=== PATIENT | male | born 1960 | race Caucasian/White ===

== ENCOUNTER 2015-06-18 17:11 | Inpatient (IN) | payer MEDICARE, OTHER ==
[~2015-06-18] VITALS: Ht 177.8 cm; Wt 40.0 kg
[2015-06-18] VITALS (7 sets, daily range): BP systolic 104–152; BP diastolic 61–91; PULSE 84–107; RESP 22–38; TEMP 100.9; O2SAT 98–100
[~2015-06-18 17:11] MED LIST: ACET INH; ALBU1.25 NEB; AMOX875 PO; CARB25TA GT; CLON1TAB GT; DIPH2%T G-TUBE; FAMO1TAB36 G-TUBE; FENT25DI T-DERMAL; FLUC100T41 PO; HEPA10KP SQ; HUMSS SQ; LACT PO; MAPA325T6 G-TUBE; MIDO5 G-TUBE; NEUR600T G-TUBE; OLAN2.5T GT; PAXI30TA7 G-TUBE; POTA-267 PO; QUET25 G-TUBE; RANI150T G-TUBE
--- NOTE | 2015-06-18 17:34 | PD ---
HPI Chief Complaint: Respiratory Distress Time Seen by Provider: 17:18 Travel History International Travel<30 days: No (unknown) Contact w/Intl Traveler<30days: No (unkonwn) History of Present Illness HPI This is a 54-year-old male with a history of Parkinson's disease and dementia who is in a prison and nonverbal at baseline, with a tracheostomy and a PEG tube, presenting today with fevers and increased work of breathing. Patient is unable to provide any history. The prison noted that he had some purulent sputum at his tracheostomy site. PFSH Past Medical History Arthritis: Yes Anxiety: Yes Depression: Yes High Cholesterol: Yes Coronary Artery Disease: Yes Dementia: Yes Diabetes: Yes Diminished Hearing: Yes Gastrointestinal Disorders: Yes (HEMORROIDS) GERD: Yes Genitourinary: Yes (UTI) Hypertension: Yes Neurologic: Yes (ENCEPHALOPATHY) Parkinson's Disease: Yes Respiratory: Yes Past Surgical History Oral Surgery: Yes ("THROAT SURGERY" SON IS UNAWARE OF ETILOGY) Other Surgery: Yes (ENT) Social History Alcohol Use: No Tobacco Use: No Substance Use: No Allergies-Medications (Allergen,Severity, Reaction): Coded Allergies: *MDRO Multi-Drug Resistant Organism (Verified Adverse Reaction, Unknown, ) ESBL E. coli (urine) - 02/19/2015 MRSA PCR positive - 03/20/2015 Reported Meds & Prescriptions Reported Meds & Active Scripts Active Fentanyl 25 Mcg/Hr patch (Fentanyl) 25 Mcg/Hr Dis 1 Patch T-DERMAL Q3D 10 Days Clonazepam 1 Mg Tab 1 Mg GT BID 10 Days Diflucan 100 mg (Fluconazole) 100 Mg Tab 100 Mg PO DAILY Amoxicillin 875 Mg Tab 875 Mg PO Q12HR 10 Days Heparin Sq 10,000 Units/Ml (Heparin Sodium (Porcine)) 10,000 Units/Ml Inj 5, 000 Units SQ Q8HR 30 Days Lactinex (Lactobacillus Acidophilus) 1 Tab Tab 1 Tab PO TID 10 Days Reported Humalog Insulin Supplemental Scale (Insulin Human Lispro) 100 Units/Ml Inj 2- 12 Units SQ TIDACHS Medium Dose Lispro Insulin Sliding Scale = Max dose at bedtime:( )units; Max dose at 3am:( ); blood sugars less than 70 take zero insulin units; blood sugars 151-200 take 3 unit; blood sugars 20-250 take 5 units; blood sugars 251-300 take 10 units; blood sugars 301-350 take 12 units; blood sugars 351-400 take 12 units; blood sugars greater than 401 take 15 units & call MD Stoll 400 Gm (Silver Sulfadiazine) 400 Applic/400 Gm Cr 1 Applic TOP DAILY APPLY TO RIGHT BUTTOCKS Lortab 5 mg/325 mg (Hydrocodone/Acetaminophen 5 mg/325 mg) 1 Tab 1 Tab G-TUBE Q6HR PRN Potassium Chloride CR 20 meq 20 Meq Tab 40 Meq G-TUBE DAILY Paroxetine Hcl 20 Mg Tab 20 Mg G-TUBE DAILY Gabapentin 300 Mg Cap 300 Mg G-TUBE BID Ranitidine 150 mg (Ranitidine HCl) 150 Mg Tab 150 Tab G-TUBE BID Diphenhydramine 25 mg (Diphenhydramine HCl) 25 Mg Tab 25 Mg G-TUBE Q6HR Quetiapine Fumarate 25 Mg Tab 12.5 Mg G-TUBE DAILY Proamatine 5 Mg Tab (Midodrine) 5 Mg Tab 2.5 Mg G-TUBE BID Famotidine 20 Mg Tab 20 Mg G-TUBE BID Sinemet 25/100 (Carbidopa/Levodopa) 25 Mg/100 Mg Tab 1 Tab GT Q8HR Acetylcysteine 20 % Helga 4 Ml INH BID Mapap (Acetaminophen) 325 Mg Tab 650 Mg G-TUBE Q4H PRN Olanzapine 2.5 Mg Tab 2.5 Mg GT HS Accuneb 1.25 mg/3 ml (Albuterol Sulfate) 1.25 Mg/3 Ml Neb 1.25 Mg NEB Q6HR NEB PRN Review of Systems ROS Limitations: Clinical Condition Physical Exam Narrative GENERAL: Chronically ill-appearing, frail SKIN: No obvious cellulitis or wounds HEAD: Atraumatic. Normocephalic. EYES: Pupils equal and round. No injection or drainage. ENT: Moist mucous membranes NECK: Trachea midline. CARDIOVASCULAR: Regular rate and rhythm. No murmur appreciated. RESPIRATORY: Clear to auscultation. Breath sounds equal bilaterally. GASTROINTESTINAL: Abdomen soft, non-tender, nondistended. NEUROLOGICAL: Does not answer questions or respond, does not follow commands Data Data Last Documented VS Vital Signs Date Time Temp Pulse Resp B/P Pulse Ox O2 Delivery O2 Flow Rate FiO2 06/18/15 17:15 100.9 98 38 104/61 99 06/18/15 17:15 Trach Collar Orders Complete Blood Count With Diff (06/18/15 17:31) Comprehensive Metabolic Panel (06/18/15 17:31) Prothrombin Time / Inr (Pt) (06/18/15 17:31) Act Partial Throm Time (Ptt) (06/18/15 17:31) Lactic Acid Sepsis Protocol (06/18/15 17:31) Urinalysis - C+S If Indicated (06/18/15 17:31) Blood Culture (06/18/15 17:31) Sputum Culture And Gram Stain (06/18/15 17:31) Chest, Single Ap (06/18/15 17:31) Arterial Blood Gas (Abg) (06/18/15 17:31) Blood Glucose (06/18/15 17:31) Ecg Monitoring (06/18/15 17:31) Iv Access Insert/Monitor (06/18/15 17:31) Oximetry (06/18/15 17:31) Oxygen Administration (06/18/15 17:31) Acetaminophen Supp (Tylenol Supp) (06/18/15 17:45) Vancomycin Inj (Vancomycin Inj) (06/18/15 17:45) Piperacil-Tazo 4.5 Gm Premix (Zosyn 4.5 (06/18/15 17:45) Sodium Chlor 0.9% 1000 Ml Inj (Ns 1000 M (06/18/15 17:31) Resp Bipap / Cpap Non Invas Vt (06/18/15 ) Urine Culture (06/18/15 17:32) Ct Brain W/O Iv Contrast(Rout) (06/18/15 19:03) Ct Abd/Pel W Iv Contrast(Rout) (06/18/15 19:03) Labs Laboratory Tests Test 06/18/15 06/18/15 06/18/15 06/18/15 17:30 17:32 17:34 18:00 White Blood Count 16.4 TH/MM3 Red Blood Count 3.81 MIL/MM3 Hemoglobin 11.3 GM/DL Hematocrit 34.3 % Mean Corpuscular Volume 90.1 FL Mean Corpuscular Hemoglobin 29.7 PG Mean Corpuscular Hemoglobin 32.9 % Concent Red Cell Distribution Width 12.9 % Platelet Count 176 TH/MM3 Mean Platelet Volume 11.0 FL Neutrophils (%) (Auto) 89.9 % Lymphocytes (%) (Auto) 4.5 % Monocytes (%) (Auto) 5.2 % Eosinophils (%) (Auto) 0.1 % Basophils (%) (Auto) 0.3 % Neutrophils # (Auto) 14.7 TH/MM3 Lymphocytes # (Auto) 0.7 TH/MM3 Monocytes # (Auto) 0.8 TH/MM3 Eosinophils # (Auto) 0.0 TH/MM3 Basophils # (Auto) 0.1 TH/MM3 CBC Comment DIFF FINAL Differential Comment Prothrombin Time 11.4 SEC Prothromb Time International 1.1 RATIO Ratio Activated Partial 29.4 SEC Thromboplast Time Sodium Level 141 MEQ/L Potassium Level 4.5 MEQ/L Chloride Level 105 MEQ/L Carbon Dioxide Level 27.4 MEQ/L Anion Gap 9 MEQ/L Blood Urea Nitrogen 21 MG/DL Creatinine 0.85 MG/DL Estimat Glomerular Filtration 95 ML/MIN Rate Random Glucose 116 MG/DL Calcium Level 9.6 MG/DL Total Bilirubin 0.6 MG/DL Aspartate Amino Transf 23 U/L (AST/SGOT) Alanine Aminotransferase 38 U/L (ALT/SGPT) Alkaline Phosphatase 59 U/L Total Protein 7.5 GM/DL Albumin 3.2 GM/DL Urine Color YELLOW Urine Turbidity HAZY Urine pH 7.5 Urine Specific [place] 1.026 Urine Protein 100 mg/dL Urine Glucose (UA) NEG mg/dL Urine Ketones NEG mg/dL Urine Occult Blood LARGE Urine Nitrite NEG Urine Bilirubin NEG Urine Urobilinogen 2.0 MG/DL Urine Leukocyte Esterase LARGE Urine RBC /hpf Urine WBC /hpf Urine Bacteria FEW /hpf Urine Mucus MANY /lpf Urine Yeast with Hyphae FEW Urine Yeast (Budding) FEW Microscopic Urinalysis Comment CATH-CULTURE IND Lactic Acid Level 4.0 mmol/L Blood Gas Puncture Site RT RADIAL Blood Gas Patient Temperature 98.6 Blood Gas HCO3 27 mmol/L Blood Gas Base Excess 4.2 mmol/L Blood Gas Oxygen Saturation 95 % Arterial Blood pH 7.53 Arterial Blood Partial 33 mmHg Pressure CO2 Arterial Blood Partial 108 mmHG Pressure O2 Arterial Blood Oxygen Content 28.8 Vol % Arterial Blood 1.2 % Carboxyhemoglobin Arterial Blood Methemoglobin 1.7 % Blood Gas Hemoglobin 21.6 G/DL Oxygen Delivery Device TRACH MASK Blood Gas Inspired Oxygen 40 % MDM Medical Decision Making Medical Screen Exam Complete: Yes Emergency Medical Condition: Yes Interpretation(s) Fever, tachypnea Leukocytosis with left shift Electrolytes within normal limits Lactate 4 Urinalysis: Urinary tract infection ABG: Metabolic and respiratory alkalosis Differential Diagnosis Pneumonia, urinary tract infection, tracheitis, sepsis, septic shock Narrative Course This is a 54-year-old male who is chronically debilitated in a prison with a tracheostomy, who presents with severe sepsis. He was given 2 L of IV fluid and broad-spectrum antibiotics. Cultures were obtained. Urinary tract infection appears to be the source. Putnam catheter was changed. Initially patient was markedly tachypneic with increased work of breathing and accessory muscle use, so he was placed on CPAP. He was not tolerating CPAP well so changed to assist control and appeared more comfortable. ABG demonstrated respiratory alkalosis. The patient will be admitted to the intensive care unit for further management. Critical Care Narrative Aggregate critical care time was 45 minutes. Time to perform other separately billable procedures was not included in the critical care time. My time did not include minutes spent treating any other patients simultaneously or on activities that did not directly contribute to the patient's treatment. The services I provided to this patient were to treat and/or prevent clinically significant deterioration that could result in: Disability, I provided critical care services requiring my management, as noted below: Chart data review, documentation time, medication orders and management, vital sign assessments/reviewing monitor data, ordering and reviewing lab tests, ordering and interpreting/reviewing x-rays and diagnostic studies, care of the patient and discussion of the patient with the admitting physicians. Admitting Information Admitting Physician Requests: Admit Diagnosis: severe sepsis Camille Patel MD June 18, 2015 17:34
[2015-06-18] MEDS ORDERED: PIPERACIL-TAZO 4.5 GM PREMIX 100 ML IV ONE (17:45)
[2015-06-18] MEDS ORDERED: VANCOMYCIN INJ 1 MG in SODIUM CHLOR 0.9% 250 ML INJ 250 ML IV ONE (17:45)
[2015-06-18] MEDS ORDERED: ACETAMINOPHEN 650 MG SUPP RECTAL ONE (17:45)
[2015-06-18] MEDS: SODIUM CHLOR 0.9% 1000 ML INJ 1,000 ML, SODIUM CHLOR 0.9% 1000 ML INJ 1,000 ML IV SCH ×2 (17:54→20:29)
[2015-06-18 18:01] LABS: AUTOMATED NEUTROPHIL # 14.7 TH/MM3 (1.8-7.7); BASOPHIL # 0.1 TH/MM3 (0-0.2); BASOPHIL % 0.3 % (0.0-2.0); EOSINOPHIL % 0.1 % (0.0-4.0); HEMATOCRIT 34.3 % (39.0-51.0); HEMO FLAGS DIFF FINAL; LYMPH % 4.5 % (9.0-44.0); LYMPHOCYTE # 0.7 TH/MM3 (1.0-4.8); MEAN CELL VOLUME 90.1 FL (80.0-100.0); MEAN CORPUSCULAR HEMOGLOBIN 29.7 PG (27.0-34.0); MEAN CORPUSCULAR HGB CONC 32.9 % (32.0-36.0); MONO % 5.2 % (0.0-8.0); NEUT % 89.9 % (16.0-70.0); PLATELET COUNT 176 TH/MM3 (150-450); RED BLOOD COUNT 3.81 MIL/MM3 (4.50-5.90); RED CELL DISTRIBUTION WIDTH 12.9 % (11.6-17.2); WHITE BLOOD COUNT 16.4 TH/MM3 (4.0-11.0)
[2015-06-18] MEDS ORDERED: POTA20IN3 G-TUBE (18:03)
[2015-06-18] MEDS ORDERED: GABA300C3 G-TUBE (18:03)
[2015-06-18] MEDS ORDERED: SILV400T TOP (18:03)
[2015-06-18] MEDS ORDERED: PARO20TA G-TUBE (18:03)
[2015-06-18] MEDS ORDERED: HYDR-3533 G-TUBE (18:03)
[2015-06-18] MEDS ORDERED: HUMALOGP SQ (18:09)
[2015-06-18 18:10] LABS: APTT (PATIENT) 29.4 SEC (22.6-28.8); INTERNATIONAL NORMALIZED RATIO 1.1 RATIO; PROTHROMBIN TIME - PATIENT 11.4 SEC (9.8-11.4)
[2015-06-18 18:20] LABS: BACTERIA, URINE FEW /hpf; BLOOD, URINE LARGE (NEG); GLUCOSE,URINE NEG (NEG); KETONE, URINE NEG (NEG); MUCUS URINE MANY /lpf (OCC); NITRITE,URINE NEG (NEG); PH, URINE 7.5 (5.0-8.5); URINE COLOR YELLOW (YELLW/STRAW)
[2015-06-18 18:22] LABS: COMMENT (UR) CATH-CULTURE IND; CULTURE IF INDICATED CATH CULTURE IND
[2015-06-18 18:32] LABS: ALT (GPT) 38 U/L (12-78); ANION GAP 9 MEQ/L (5-15); AST (GOT) 23 U/L (15-37); BICARBONATE 27.4 MEQ/L (21.0-32.0); BLOOD UREA NITROGEN 21 MG/DL (7-18); CHLORIDE 105 MEQ/L (98-107); GLOMERULAR FILTRATION RATE 95 ML/MIN (>89); POTASSIUM 4.5 MEQ/L (3.5-5.1); SODIUM (NA) 141 MEQ/L (136-145)
[2015-06-18 18:34] LABS: ALKALINE PHOSPHATASE 59 U/L (45-117); TOTAL BILIRUBIN ADULT 0.6 MG/DL (0.2-1.0)
--- NOTE | 2015-06-18 18:36 | RADRPT ---
EXAM DATE/TIME: 06/18/2015 18:02 [facility] COMPARISON: CHEST SINGLE AP, June 12, 2015, 8:22. INDICATIONS : Cough. MEDICAL HISTORY : Unobtainable. SURGICAL HISTORY : Unobtainable. ENCOUNTER: Initial ACUITY: 1 day PAIN SCORE: Non-responsive. LOCATION: chest FINDINGS: Single AP view chest. Tracheostomy tube remains in place. The lungs are clear. Cardiomediastinal silh ouette within normal limits. No evidence of pleural effusion or pneumothorax. Skin folds noted at the right upper lung zone region. CONCLUSION: No acute cardiopulmonary disease identified. Kush Briscoe MD on June 18, 2015 at 18:31 Board Certified Radiologist. This report was verified electronically.
[2015-06-18 18:42] LABS: BLOOD GAS BASE EXCESS 4.2 mmol/L (-2-2); BLOOD GAS CARBOXYHEMOGLOBIN 1.2 % (0-4); BLOOD GAS HCO3 27 mmol/L (22-26); BLOOD GAS METHEMOGLOBIN 1.7 % (0-2); BLOOD GAS O2 HGB SATURATION 95 % (90-100); BLOOD GAS OXYGEN CONTENT 28.8 Vol % (12.0-20.0); BLOOD GAS PCO2 33 mmHg (38-42); BLOOD GAS PO2 108 mmHG (61-120); BLOOD GAS TOTAL HGB 21.6 G/DL (12.0-16.0); TEMP CORR TO 98.6
[2015-06-18 18:43] LABS: CRITICAL VALUE YES; DRAW SITE RT RADIAL; FIO2 40 %; NUMBER OF ARTERIAL PUNCTURES 2; OXYGEN DEVICE TRACH MASK; STAT YES; ULNAR PULSE PRESENT
[2015-06-18] MEDS ORDERED: IOHEXOL 350 MG/ML 10 ML VIAL (for RAD DIAG) IV ONE (19:34)
[2015-06-18 19:45] LABS: LACTIC ACID GHOST NOT REPORTABLE
--- NOTE | 2015-06-18 20:27 | RADRPT ---
EXAM DATE/TIME: 06/18/2015 19:31 [facility] COMPARISON: CT BRAIN W/O CONTRAST, June 12, 2015, 8:49. INDICATIONS : Altered mental status with recent respiratory infection. RADIATION DOSE: 57.81 CTDIvol (mGy) MEDICAL HISTORY : Dementia. Parkinsons. Hypertension. SURGICAL HISTORY : None. ENCOUNTER: Initial ACUITY: 1 day PAIN SCALE: Non-responsive LOCATION: cranial TECHNIQUE: Multiple contiguous axial images were obtained of the head. Using automated exposure control and adj ustment of the mA and/or kV according to patient size, radiation dose was kept as low as reasonably a chievable to obtain optimal diagnostic quality images. FINDINGS: CEREBRUM: Diffuse prominence of ventricles, sulci, and cisterns unchanged. No evidence of midline shift, mass lesion, hemorrhage or acute infarction. No extra-axial fluid collections are seen. POSTERIOR FOSSA: The cerebellum and brainstem are intact. The 4th ventricle is midline. The cerebellopontine angle i s unremarkable. EXTRACRANIAL: The visualized portion of the orbits is intact. Diffuse opacification of right mastoid air cells unch anged. SKULL: The calvaria is intact. No evidence of skull fracture. CONCLUSION: Diffuse atrophy unchanged. No acute intracranial findings. Kush Briscoe MD on June 18, 2015 at 20:23 Board Certified Radiologist. This report was verified electronically.
--- NOTE | 2015-06-18 20:36 | RADRPT ---
EXAM DATE/TIME: 06/18/2015 19:36 [facility] COMPARISON: CT ABDOMEN & PELVIS W CONTRAST, March 20, 2015, 2:48. INDICATIONS : Fever; evaluate for sepsis. IV CONTRAST: 86 cc Omnipaque 350 (iohexol) IV ORAL CONTRAST: No oral contrast ingested. RADIATION DOSE: 6.11 CTDIvol (mGy) MEDICAL HISTORY : Hypertension. Gastroesophageal reflux disease. Diabetes mellitus type 2. SURGICAL HISTORY : None. ENCOUNTER: Initial ACUITY: 1 day PAIN SCALE: Non-responsive LOCATION: Abdomen/pelvis TECHNIQUE: Volumetric scanning of the abdomen and pelvis was performed. Using automated exposure control and ad justment of the mA and/or kV according to patient size, radiation dose was kept as low as reasonably achievable to obtain optimal diagnostic quality images. FINDINGS: LOWER LUNGS: Moderate severity groundglass opacity at the right middle lobe. Lower lobe bronchiectasis and mild tr ee in bud opacity again seen bilaterally. Findings are very similar to the prior study of 03/20/2015 LIVER: Homogeneous density without lesion. There is no dilation of the biliary tree. No calcified gallston es. SPLEEN: Normal size without lesion. PANCREAS: Within normal limits. KIDNEYS: 4 cm left renal cyst again seen. A 3 mm nonobstructing calculus is now seen in the upper pole on the left. No evidence of hydronephrosis. ADRENAL GLANDS: Within normal limits. VASCULAR: There is no aortic aneurysm. BOWEL/MESENTERY: Rectum is moderately distended. Gastrostomy tube is in place. No evidence of small bowel dilatation. No free air or free fluid. Adnexa within normal limits. ABDOMINAL WALL: Within normal limits. RETROPERITONEUM: No evidence of abscess or hematoma. No enlarged lymph nodes. BLADDER: Putnam catheter in place. Bladder collapsed. Nonspecific wall thickening. REPRODUCTIVE: Within normal limits. INGUINAL: There is no lymphadenopathy or hernia. MUSCULOSKELETAL: Within normal limits for patient age. CONCLUSION: 1. Chronic nonspecific urinary bladder wall thickening. Bladder collapsed with Putnam catheter in plac e. 2. Chronic bilateral mid to lower lung zone groundglass opacity. 3. Nonobstructing left renal calculus. 4. Distended rectum. Kush Briscoe MD on June 18, 2015 at 20:26 Board Certified Radiologist. This report was verified electronically.
[2015-06-18] MEDS ORDERED: CHLORHEXIDINE GLUCONATE 2 % 1 PACK (2 CLOTHS) TOP PRN (21:30)
[2015-06-18] MEDS ORDERED: MISCELLANEOUS NURSING INFORMATION XX SCH (21:30)
[2015-06-18] MEDS ORDERED: POTASSIUM CL 40 MEQ/30 ML LIQ UDC PO/TUBE PRN ×2 (21:45)
[2015-06-18] MEDS ORDERED: MAGNESIUM SULFATE INJ 2 GM in SODIUM CHLORIDE 0.9% INJ 96 ML IV PRN (21:45)
[2015-06-18] MEDS ORDERED: MAGNESIUM OXIDE 400 MG TAB PO PRN (21:45)
[2015-06-18] MEDS ORDERED: POTASSIUM PHOSPHATE MONOBASIC 500 MG TAB PO PRN (21:45)
[2015-06-18] MEDS ORDERED: MISCELLANEOUS PHARMACY INFORMATION XX PRN (21:45)
[2015-06-18] MEDS ORDERED: POTASSIUM PHOSPHATE MONOBASIC 500 MG TAB PO/TUBE PRN (21:45)
[2015-06-18] MEDS ORDERED: SODIUM PHOSPHATE INJ 30 MMOL in SODIUM CHLOR 0.9% 250 ML INJ 240 ML IV PRN (21:45)
[2015-06-18] MEDS ORDERED: MAGNESIUM SULFATE INJ 4 GM in SODIUM CHLORIDE 0.9% INJ 92 ML IV PRN (21:45)
[2015-06-18] MEDS ORDERED: ASP: Documented ESBL, MDR A baumannii or P. aeruginosa XX PRN (21:45)
[2015-06-18] MEDS ORDERED: SODIUM CHLOR 0.9% 1000 ML INJ 1,000 ML IV ONE (21:45)
[2015-06-18] MEDS ORDERED: POTASSIUM PHOSPHATE INJ 30 MMOL in SODIUM CHLOR 0.9% 250 ML INJ 250 ML IV PRN (21:45)
[2015-06-18] MEDS ORDERED: Vancomycin Consult Pharmacy 1 EA XX SCH (21:45)
[2015-06-18] MEDS ORDERED: POTASSIUM CHLOR 40 MEQ PREMIX 100 ML IV PRN ×2 (21:45)
[2015-06-18] MEDS ORDERED: GLUCAGON 1 MG/ML VIAL OTHER PRN (21:45)
[2015-06-18] MEDS ORDERED: DEXTROSE 50% IN WATER 50 ML VIAL(D50) IV PUSH PRN (21:45)
[2015-06-18 22:37] LABS: HEMOGLOBIN A1b 0.8 %; HEMOGLOBIN Ao 85.8 %; HEMOGLOBIN F 0.9 %
[2015-06-18 22:40] LABS: HDL CHOLESTEROL 29.5 MG/DL (40.0-60.0)
[2015-06-18] MEDS: ENOXAPARIN SODIUM 30 MG/0.3 ML SYRINGE SQ SCH (22:47)
[2015-06-18] MEDS: SODIUM CHLOR 0.9% 1000 ML INJ 1,000 ML IV SCH (22:47)
[2015-06-18] MEDS: MEROPENEM INJ 500 MG in SODIUM CHLORIDE 0.9% INJ 100 ML IV SCH (22:47)
[2015-06-18] MEDS ORDERED: MICAFUNGIN INJ 150 MG in SODIUM CHLORIDE 0.9% INJ 100 ML IV SCH (23:00)
[2015-06-18 23:16] LABS: ALKALINE PHOSPHATASE 53 U/L (45-117); ALT (GPT) 32 U/L (12-78); ANION GAP 8 MEQ/L (5-15); AST (GOT) 20 U/L (15-37); BLOOD UREA NITROGEN 18 MG/DL (7-18); CHLORIDE 109 MEQ/L (98-107); FREE T3 1.36 PG/ML (2.18-3.98); FREE T4 1.35 NG/DL (0.76-1.46); GLOMERULAR FILTRATION RATE 108 ML/MIN (>89); MAGNESIUM 1.7 MG/DL (1.5-2.5); POTASSIUM 4.3 MEQ/L (3.5-5.1); SODIUM (NA) 141 MEQ/L (136-145); TOTAL BILIRUBIN ADULT 0.7 MG/DL (0.2-1.0)
[2015-06-18 23:17] LABS: CREATINE KINASE 77 U/L (39-308)
[2015-06-19] VITALS (23 sets, daily range): BP systolic 103–146; BP diastolic 72–90; PULSE 62–84; RESP 19–31; TEMP 98.1–99.5; O2SAT 99–100
[2015-06-19] MEDS: RESP: ALBUTEROL 2.5 MG/IPRATROPIUM 0.5 MG NEB (SCH) INH ×7 (00:12→23:31)
--- NOTE | 2015-06-19 03:07 | HHI.HP ---
HPI Service Critical Care Medicine Primary Care Physician Unknown Admission Diagnosis severe sepsis Diagnosis: Chief Complaint: sepsis from UTI, resp failure , altered mental status Travel History International Travel<30 Days: No (unknown) Contact w/Intl Traveler <30 Da: No (unkonwn) Traveled to Known Affected Are: No History of Present Illness pt was seen and examined in ED and in ICU HPI Pt is a 54 yr man with multiple medial problems including Parkinson's disease, advanced dementia, hyponatremia, anxiety, pneumonia, GERD, cognitive disorder, and multidrug resistant UTI- ESBL02/19/15 , who resides in a [place] [facility]. Pt by report was found by staff in [place] [facility] to be less alert and having respiratory difficultly and fevers. Pt was brought to ED adn placed on ventilator. His workup was inclusive of labs, chest xray and ct head and abd/pelvis. WBC 16.4, +UTI, lactic acid 4, troponin ,0.02, BUN/ cre 18/ 0.76. CT head 06/18/15: diffuse atrophy unchanged. No acute intracranial findings ct abd/ pelvis with IV contrast: 06/18/15 Conclusion: 1. Chronic nonspecific urinary bladder wall thickening. Bladder collapsed with Putnam catheter in place. 2.Chronic bilateral mid to lower zone groundglass opacity. 3. Nonobstructing left renal calculus. 4. Distended rectum Pt admitted and fluid and abx ordered Review of Systems ROS Limitations: Clinical Condition, Intubated Past Family Social History Allergies: Coded Allergies: *MDRO Multi-Drug Resistant Organism (Verified Adverse Reaction, Unknown, ) ESBL E. coli (urine) - 02/19/2015 MRSA PCR positive - 03/20/2015 Past Medical History Parkinson's disease, advanced dementia, hyponatremia, anxiety, pneumonia, GERD, cognitive disorder, multidrug resistant UTI- ESBL02/19/15 , MRSA + 03/20/15 Past Surgical History PEG, trach, left hip fx Physical Exam Vital Signs Vital Signs Date Time Temp Pulse Resp B/P Pulse Ox O2 Delivery O2 Flow Rate FiO2 06/19/15 02:00 82 06/19/15 01:20 100 35 06/19/15 01:15 99.5 78 28 146/90 99 06/19/15 01:00 100 100 06/19/15 00:27 99.0 77 22 134/72 100 Room Air 06/19/15 00:15 100 35 06/18/15 22:48 84 22 129/78 100 Trach Collar 06/18/15 21:38 100 40 06/18/15 20:48 107 28 152/91 100 Trach Collar 06/18/15 19:30 100 100 06/18/15 19:00 88 29 107/73 99 Ventilator 06/18/15 18:00 98 36 123/67 98 Ventilator 06/18/15 18:00 99 40 06/18/15 17:15 99 Trach Collar 5 06/18/15 17:15 98 100 Trach Collar 06/18/15 17:15 100.9 98 38 104/61 99 06/18/15 17:15 17 Trach Collar Physical Exam Neuro : pt more alert in ICU pupils 3mm reactive b/l sceral clear no icterus moves upper ext + tremors of upper ext lower ext contracted and stiff, they cross over each other and he is not very mobile, contraction at hips and entire legs- fixed in position. + dp pulses b/l + radial pulses b/l chest course breath sounds b/l cleared with repeat exam in ICU cardiac s1s2 regular ryhtum abd left upper quadrant feeding tube area around clean soft +bs Laboratory Laboratory Tests Test 06/18/15 06/18/15 06/18/15 06/18/15 17:30 17:32 17:34 18:00 White Blood Count 16.4 Red Blood Count 3.81 Hemoglobin 11.3 Hematocrit 34.3 Mean Corpuscular Volume 90.1 Mean Corpuscular Hemoglobin 29.7 Mean Corpuscular Hemoglobin 32.9 Concent Red Cell Distribution Width 12.9 Platelet Count 176 Mean Platelet Volume 11.0 Neutrophils (%) (Auto) 89.9 Lymphocytes (%) (Auto) 4.5 Monocytes (%) (Auto) 5.2 Eosinophils (%) (Auto) 0.1 Basophils (%) (Auto) 0.3 Neutrophils # (Auto) 14.7 Lymphocytes # (Auto) 0.7 Monocytes # (Auto) 0.8 Eosinophils # (Auto) 0.0 Basophils # (Auto) 0.1 CBC Comment DIFF FINAL Differential Comment Prothrombin Time 11.4 Prothromb Time International 1.1 Ratio Activated Partial 29.4 Thromboplast Time Sodium Level 141 Potassium Level 4.5 Chloride Level 105 Carbon Dioxide Level 27.4 Anion Gap 9 Blood Urea Nitrogen 21 Creatinine 0.85 Estimat Glomerular Filtration 95 Rate Random Glucose 116 Calcium Level 9.6 Total Bilirubin 0.6 Aspartate Amino Transf 23 (AST/SGOT) Alanine Aminotransferase 38 (ALT/SGPT) Alkaline Phosphatase 59 Troponin I LESS THAN 0.02 Total Protein 7.5 Albumin 3.2 Urine Color YELLOW Urine Turbidity HAZY Urine pH 7.5 Urine Specific [place] 1.026 Urine Protein 100 Urine Glucose (UA) NEG Urine Ketones NEG Urine Occult Blood LARGE Urine Nitrite NEG Urine Bilirubin NEG Urine Urobilinogen 2.0 Urine Leukocyte Esterase LARGE Urine RBC Urine WBC Urine Bacteria FEW Urine Mucus MANY Urine Yeast with Hyphae FEW Urine Yeast (Budding) FEW Microscopic Urinalysis Comment CATH-CULTURE IND Lactic Acid Level 4.0 Blood Gas Puncture Site RT RADIAL Blood Gas Patient Temperature 98.6 Blood Gas HCO3 27 Blood Gas Base Excess 4.2 Blood Gas Oxygen Saturation 95 Arterial Blood pH 7.53 Arterial Blood Partial 33 Pressure CO2 Arterial Blood Partial 108 Pressure O2 Arterial Blood Oxygen Content 28.8 Arterial Blood 1.2 Carboxyhemoglobin Arterial Blood Methemoglobin 1.7 Blood Gas Hemoglobin 21.6 Oxygen Delivery Device TRACH MASK Blood Gas Inspired Oxygen 40 Test 06/18/15 06/18/15 06/19/15 20:25 21:45 01:15 Lactic Acid Level 3.4 Sodium Level 141 Potassium Level 4.3 Chloride Level 109 Carbon Dioxide Level 24.0 Anion Gap 8 Blood Urea Nitrogen 18 Creatinine 0.76 Estimat Glomerular Filtration 108 Rate Random Glucose 105 Hemoglobin A1c 5.5 Calcium Level 8.3 Phosphorus Level 2.8 Magnesium Level 1.7 Total Bilirubin 0.7 Aspartate Amino Transf 20 (AST/SGOT) Alanine Aminotransferase 32 (ALT/SGPT) Alkaline Phosphatase 53 Ammonia 25 Total Creatine Kinase 77 Troponin I LESS THAN 0.02 Total Protein 6.4 Albumin 2.6 Triglycerides Level 64 Cholesterol Level 71 LDL Cholesterol 29 HDL Cholesterol 29.5 Cholesterol/HDL Ratio 2.40 Free Thyroxine 1.35 Free Triiodothyronine (T3) 1.36 pg/dL Thyroid Stimulating Hormone 1.800 3rd Gen Nasal Screen MRSA (PCR) NEGATIVE Date/Time Procedure Status Source Growth 06/18/15 18:20 Aerobic Blood Culture Received Blood Peripheral Pending 06/18/15 18:20 Anaerobic Blood Culture Received Blood Peripheral Pending 06/18/15 18:00 Gram Stain Received Sputum Endotracheal Pending 06/18/15 18:00 Sputum Culture Received Sputum Endotracheal Pending 06/18/15 17:32 Urine Culture Received Urine Catheterized Urine Pending Result Diagram: 06/18/15 1730 06/18/15 2145 Assessment and Plan Assessment and Plan Neuro: altered mental status, Parkinson's disease, cognitive disorder likely secondary to metabolic with sepsis from UTI CT head 06/18/15: diffuse atrophy unchanged. No acute intracranial findings on repeat exam in ICU pt is reactive and open eyes immediately restarted his listed outpt anti psych mediations and Parkinson's medication Resp: chronic trach, acute on chronic resp failure, pneumonia pt placed on vent 12 500/ 5/35% breathing treatments around the clock and prn sputum culture ordered. Cardiac; septic lactic acid 4 to 3.4 bolus ordered troponin <0.02 hemodynamically stable GI: nutrition consult prealbumin ordered : BUN/ 18/ 0.76 electrolyte replacement protocol ordered mag 1.7 replacement ordered ID: history of mulitdrug resistant UTI, current UTI multidrug resistant UTI- ESBL02/19/15 , MRSA + 03/20/15 Heena glabrata in urine 03/19/15 pancultured pt ID consult meropenem, vancomycin, micafungin ct abd/ pelvis with IV contrast: 06/18/15 Conclusion: 1. Chronic nonspecific urinary bladder wall thickening. Bladder collapsed with Putnam catheter in place. 2.Chronic bilateral mid to lower zone groundglass opacity. 3. Nonobstructing left renal calculus. 4. Distended rectum Endo: fingersticks and sliding scale coverage DVT prof: scd and lovenox ordered GI prof: protonix wound care for stage 2 6x2 cm sacral wound spoke with ED attending, and nursing staff in ICU critical care time 60 min nonprocedural time Radha Rodriguez MD June 19, 2015 03:07
[2015-06-19] MEDS: CHLORHEXIDINE GLUCONATE 2 % 1 PACK (2 CLOTHS) TOP SCH (04:00)
[2015-06-19 04:59] LABS: BASOPHIL # 0.1 TH/MM3 (0-0.2); BASOPHIL % 0.6 % (0.0-2.0); EOSINOPHIL # 0.3 TH/MM3 (0-0.4); EOSINOPHIL % 3.1 % (0.0-4.0); HEMATOCRIT 32.8 % (39.0-51.0); HEMO FLAGS DIFF FINAL; LYMPH % 14.2 % (9.0-44.0); LYMPHOCYTE # 1.3 TH/MM3 (1.0-4.8); MEAN CORPUSCULAR HEMOGLOBIN 30.4 PG (27.0-34.0); MEAN CORPUSCULAR HGB CONC 33.4 % (32.0-36.0); MONO % 5.6 % (0.0-8.0); NEUT % 76.5 % (16.0-70.0); PLATELET COUNT 140 TH/MM3 (150-450); RED CELL DISTRIBUTION WIDTH 13.4 % (11.6-17.2); WHITE BLOOD COUNT 9.1 TH/MM3 (4.0-11.0)
[2015-06-19 05:13] LABS: APTT (PATIENT) 34.7 SEC (22.6-28.8); INTERNATIONAL NORMALIZED RATIO 1.2 RATIO; PROTHROMBIN TIME - PATIENT 12.5 SEC (9.8-11.4)
[2015-06-19 05:23] LABS: ALT (GPT) 31 U/L (12-78); ANION GAP 6 MEQ/L (5-15); AST (GOT) 17 U/L (15-37); BICARBONATE 26.1 MEQ/L (21.0-32.0); BLOOD UREA NITROGEN 14 MG/DL (7-18); CHLORIDE 112 MEQ/L (98-107); GLOMERULAR FILTRATION RATE 153 ML/MIN (>89); MAGNESIUM 1.7 MG/DL (1.5-2.5); POTASSIUM 3.9 MEQ/L (3.5-5.1); SODIUM (NA) 144 MEQ/L (136-145)
[2015-06-19 05:26] LABS: ALKALINE PHOSPHATASE 49 U/L (45-117); TOTAL BILIRUBIN ADULT 0.7 MG/DL (0.2-1.0)
[2015-06-19] MEDS: SODIUM CHLOR 0.9% 1000 ML INJ 1,000 ML IV SCH ×3 (05:27→20:53)
[2015-06-19 05:43] LABS: BLOOD GAS BASE EXCESS -1.9 mmol/L (-2-2); BLOOD GAS HCO3 22 mmol/L (22-26); BLOOD GAS METHEMOGLOBIN 0.8 % (0-2); BLOOD GAS O2 HGB SATURATION 97 % (90-100); BLOOD GAS OXYGEN CONTENT 14.9 Vol % (12.0-20.0); BLOOD GAS PCO2 37 mmHg (38-42); BLOOD GAS PO2 157 mmHg (61-120); BLOOD GAS TOTAL HGB 10.7 G/DL (12.0-16.0); CRITICAL VALUE NO; DRAW SITE LT BRACHIAL; FIO2 35 %; NUMBER OF ARTERIAL PUNCTURES 1; OXYGEN DEVICE VENTILATOR; STAT NO; TEMP CORR TO 98.6; ULNAR PULSE PRESENT; VENT SETTINGS AC14/500/PEEP5
[2015-06-19] MEDS: CARBIDOPA/LEVODOPA 25 MG/100 MG TAB GT SCH ×3 (05:44→21:01)
[2015-06-19] MEDS: MEROPENEM INJ 500 MG in SODIUM CHLORIDE 0.9% INJ 100 ML IV SCH ×3 (05:44→21:01)
[2015-06-19] MEDS: INSULIN NovoLIN REGULAR SUPPLEMENTAL SCALE SQ SCH ×3 (06:00→18:00)
[2015-06-19] MEDS: ARTIFICIAL TEARS OPTH SOLN 15 ML BTL EACH EYE SCH ×3 (09:00→18:00)
[2015-06-19] MEDS ORDERED: VANCOMYCIN INJ 750 MG in SODIUM CHLOR 0.9% 250 ML INJ 250 ML IV SCH ×3 (10:00)
[2015-06-19] MEDS: GABAPENTIN 300 MG CAP G-TUBE SCH ×2 (10:22→20:52)
[2015-06-19] MEDS: LACTOBACILLUS ACIDOPHILUS TAB PO SCH ×3 (10:22→18:37)
[2015-06-19] MEDS: PARoxetine HCL 20 MG TAB G-TUBE SCH (10:22)
[2015-06-19] MEDS: MIDODRINE 5 MG TAB G-TUBE SCH ×2 (10:22→20:52)
[2015-06-19] MEDS: QUEtiapine FUMARATE 25 MG TAB G-TUBE SCH (10:22)
[2015-06-19] MEDS: PANTOPRAZOLE SODIUM 40 MG VIAL IV SCH (10:23)
[2015-06-19] MEDS: SODIUM CHLORIDE 0.9% FLUSH 5 ML FLUSH IVF SCH ×2 (10:23→20:52)
[2015-06-19] MEDS: VANCOMYCIN 1,000 MG/NS 250 ML IV SCH ×4 (10:23→21:01)
--- NOTE | 2015-06-19 14:15 | HHI.CCPN ---
Subjective Remarks/Hospital Course 06/17: Pt is a 54 yr man with multiple medial problems including Parkinson's disease, advanced dementia, hyponatremia, anxiety, pneumonia, GERD, cognitive disorder, and multidrug resistant UTI- ESBL02/19/15 , who resides in a [facility]. Pt by report was found by staff in [facility] to be less alert and having respiratory difficultly and fevers. Pt was brought to ED adn placed on ventilator. His workup was inclusive of labs, chest xray and ct head and abd/pelvis. WBC 16.4, +UTI, lactic acid 4, troponin ,0.02, BUN/ cre 18/ 0.76. CT head 06/18/15: diffuse atrophy unchanged. No acute intracranial findings ct abd/ pelvis with IV contrast: 06/18/15 Conclusion: 1. Chronic nonspecific urinary bladder wall thickening. Bladder collapsed with Putnam catheter in place. 2.Chronic bilateral mid to lower zone groundglass opacity. 3. Nonobstructing left renal calculus. 4. Distended rectum Pt admitted and fluid and abx ordered. 06/18: Drowsy, easily arousable. On mechanical ventilation via tracheostomy. Tachypneic. Resting tremor noted. Objective - Vital Signs Date Time Temp Pulse Resp B/P Pulse Ox O2 Delivery O2 Flow Rate FiO2 06/19/15 12:51 100 35 06/19/15 12:00 80 06/19/15 01:15 99.5 28 146/90 06/19/15 00:27 Room Air 06/18/15 17:15 5 Result Diagram: 06/19/15 0447 06/19/15 0447 Other Results Laboratory Tests Test 06/18/15 06/18/15 06/18/15 06/18/15 17:30 17:32 17:34 18:00 White Blood Count 16.4 TH/MM3 Red Blood Count 3.81 MIL/MM3 Hemoglobin 11.3 GM/DL Hematocrit 34.3 % Mean Corpuscular Volume 90.1 FL Mean Corpuscular Hemoglobin 29.7 PG Mean Corpuscular Hemoglobin 32.9 % Concent Red Cell Distribution Width 12.9 % Platelet Count 176 TH/MM3 Mean Platelet Volume 11.0 FL Neutrophils (%) (Auto) 89.9 % Lymphocytes (%) (Auto) 4.5 % Monocytes (%) (Auto) 5.2 % Eosinophils (%) (Auto) 0.1 % Basophils (%) (Auto) 0.3 % Neutrophils # (Auto) 14.7 TH/MM3 Lymphocytes # (Auto) 0.7 TH/MM3 Monocytes # (Auto) 0.8 TH/MM3 Eosinophils # (Auto) 0.0 TH/MM3 Basophils # (Auto) 0.1 TH/MM3 CBC Comment DIFF FINAL Differential Comment Prothrombin Time 11.4 SEC Prothromb Time International 1.1 RATIO Ratio Activated Partial 29.4 SEC Thromboplast Time Sodium Level 141 MEQ/L Potassium Level 4.5 MEQ/L Chloride Level 105 MEQ/L Carbon Dioxide Level 27.4 MEQ/L Anion Gap 9 MEQ/L Blood Urea Nitrogen 21 MG/DL Creatinine 0.85 MG/DL Estimat Glomerular Filtration 95 ML/MIN Rate Random Glucose 116 MG/DL Calcium Level 9.6 MG/DL Total Bilirubin 0.6 MG/DL Aspartate Amino Transf 23 U/L (AST/SGOT) Alanine Aminotransferase 38 U/L (ALT/SGPT) Alkaline Phosphatase 59 U/L Troponin I LESS THAN 0.02 NG/ML Total Protein 7.5 GM/DL Albumin 3.2 GM/DL Urine Color YELLOW Urine Turbidity HAZY Urine pH 7.5 Urine Specific [place] 1.026 Urine Protein 100 mg/dL Urine Glucose (UA) NEG mg/dL Urine Ketones NEG mg/dL Urine Occult Blood LARGE Urine Nitrite NEG Urine Bilirubin NEG Urine Urobilinogen 2.0 MG/DL Urine Leukocyte Esterase LARGE Urine RBC /hpf Urine WBC /hpf Urine Bacteria FEW /hpf Urine Mucus MANY /lpf Urine Yeast with Hyphae FEW Urine Yeast (Budding) FEW Microscopic Urinalysis Comment CATH-CULTURE IND Lactic Acid Level 4.0 mmol/L Blood Gas Puncture Site RT RADIAL Blood Gas Patient Temperature 98.6 Blood Gas HCO3 27 mmol/L Blood Gas Base Excess 4.2 mmol/L Blood Gas Oxygen Saturation 95 % Arterial Blood pH 7.53 Arterial Blood Partial 33 mmHg Pressure CO2 Arterial Blood Partial 108 mmHG Pressure O2 Arterial Blood Oxygen Content 28.8 Vol % Arterial Blood 1.2 % Carboxyhemoglobin Arterial Blood Methemoglobin 1.7 % Blood Gas Hemoglobin 21.6 G/DL Oxygen Delivery Device TRACH MASK Blood Gas Inspired Oxygen 40 % Test 06/18/15 06/18/15 06/19/15 06/19/15 20:25 21:45 01:15 04:47 Lactic Acid Level 3.4 mmol/L 1.9 mmol/L Sodium Level 141 MEQ/L 144 MEQ/L Potassium Level 4.3 MEQ/L 3.9 MEQ/L Chloride Level 109 MEQ/L 112 MEQ/L Carbon Dioxide Level 24.0 MEQ/L 26.1 MEQ/L Anion Gap 8 MEQ/L 6 MEQ/L Blood Urea Nitrogen 18 MG/DL 14 MG/DL Creatinine 0.76 MG/DL 0.56 MG/DL Estimat Glomerular Filtration 108 ML/MIN 153 ML/MIN Rate Random Glucose 105 MG/DL 93 MG/DL Hemoglobin A1c 5.5 % Calcium Level 8.3 MG/DL 8.6 MG/DL Phosphorus Level 2.8 MG/DL 3.1 MG/DL Magnesium Level 1.7 MG/DL 1.7 MG/DL Total Bilirubin 0.7 MG/DL 0.7 MG/DL Aspartate Amino Transf 20 U/L 17 U/L (AST/SGOT) Alanine Aminotransferase 32 U/L 31 U/L (ALT/SGPT) Alkaline Phosphatase 53 U/L 49 U/L Ammonia 25 MCMOL/L 20 MCMOL/L Total Creatine Kinase 77 U/L Troponin I LESS THAN 0.02 LESS THAN 0.02 NG/ML NG/ML Total Protein 6.4 GM/DL 6.5 GM/DL Albumin 2.6 GM/DL 2.8 GM/DL Triglycerides Level 64 MG/DL Cholesterol Level 71 MG/DL LDL Cholesterol 29 MG/DL HDL Cholesterol 29.5 MG/DL Cholesterol/HDL Ratio 2.40 RATIO Free Thyroxine 1.35 NG/DL Free Triiodothyronine (T3) 1.36 PG/ML pg/dL Thyroid Stimulating Hormone 1.800 uIU/ML 3rd Gen Nasal Screen MRSA (PCR) NEGATIVE White Blood Count 9.1 TH/MM3 Red Blood Count 3.60 MIL/MM3 Hemoglobin 10.9 GM/DL Hematocrit 32.8 % Mean Corpuscular Volume 91.0 FL Mean Corpuscular Hemoglobin 30.4 PG Mean Corpuscular Hemoglobin 33.4 % Concent Red Cell Distribution Width 13.4 % Platelet Count 140 TH/MM3 Mean Platelet Volume 9.8 FL Neutrophils (%) (Auto) 76.5 % Lymphocytes (%) (Auto) 14.2 % Monocytes (%) (Auto) 5.6 % Eosinophils (%) (Auto) 3.1 % Basophils (%) (Auto) 0.6 % Neutrophils # (Auto) 7.0 TH/MM3 Lymphocytes # (Auto) 1.3 TH/MM3 Monocytes # (Auto) 0.5 TH/MM3 Eosinophils # (Auto) 0.3 TH/MM3 Basophils # (Auto) 0.1 TH/MM3 CBC Comment DIFF FINAL Differential Comment Prothrombin Time 12.5 SEC Prothromb Time International 1.2 RATIO Ratio Activated Partial 34.7 SEC Thromboplast Time Prealbumin 13 MG/DL Test 06/19/15 05:38 Blood Gas Puncture Site LT BRACHIAL Blood Gas Patient Temperature 98.6 Blood Gas HCO3 22 mmol/L Blood Gas Base Excess -1.9 mmol/L Blood Gas Oxygen Saturation 97 % Arterial Blood pH 7.40 Arterial Blood Partial 37 mmHg Pressure CO2 Arterial Blood Partial 157 mmHg Pressure O2 Arterial Blood Oxygen Content 14.9 Vol % Arterial Blood 1.0 % Carboxyhemoglobin Arterial Blood Methemoglobin 0.8 % Blood Gas Hemoglobin 10.7 G/DL Oxygen Delivery Device VENTILATOR Blood Gas Ventilator Setting AC14/500/PEEP5 Blood Gas Inspired Oxygen 35 % Imaging Last Impressions Head CT 06/18/151902 Signed Impressions: Service Date/Time: June 19:31 - CONCLUSION: Diffuse atrophy unchanged. No acute intracranial findings. Kush Briscoe MD Abdomen/Pelvis CT [id number]/[id number] Signed Impressions: Service Date/Time: June 19:36 - CONCLUSION: 1. Chronic nonspecific urinary bladder wall thickening. Bladder collapsed with Putnam catheter in place. 2. Chronic bilateral mid to lower lung zone groundglass opacity. 3. Nonobstructing left renal calculus. 4. Distended rectum. Kush Briscoe MD Chest X-Ray 06/18/15 [id number] Signed Impressions: Service Date/Time: June 18:02 - CONCLUSION: No acute cardiopulmonary disease identified. Kush Briscoe MD Objective Remarks Neuro : Drowsy, easily arousable, opens eyes spontaneously, pupils 3mm reactive b/l. Resting tremor noted in bilateral upper extremities sceral clear no icterus moves upper ext + tremors of upper ext lower ext contracted and stiff, they cross over each other and he is not very mobile, contraction at hips and entire legs- fixed in position. + dp pulses b/l + radial pulses b/l chest : On mechanical ventilation via tracheostomy, good air entry bilaterally, scattered rhonchi, no wheezing cardiac s1s2 regular ryhtum abd left upper quadrant feeding tube area around clean soft +bs A/P Assessment and Plan Neuro: Encephalopathy, Parkinson's disease, cognitive disorder likely secondary to metabolic with sepsis from UTI CT head 06/18/15: diffuse atrophy unchanged. No acute intracranial findings on repeat exam in ICU pt is reactive and opens eyes immediately restarted his listed outpt anti psych mediations and Parkinson's medication Resp: chronic trach, acute on chronic resp failure, pneumonia Continue mechanical ventilation. Daily C Pap trials as tolerated. 12/ 500/ 5/35% breathing treatments around the clock and prn sputum culture ordered. Cardiac; septic Continue IV hydration. Watch for hypotension troponin <0.02 GI: nutrition consult prealbumin ordered : BUN/ 18/ 0.76 electrolyte replacement protocol ordered mag 1.7 replacement ordered ID: history of mulitdrug resistant UTI, current UTI multidrug resistant UTI- ESBL02/19/15 , MRSA + 03/20/15 Heena glabrata in urine 03/19/15 pancultured pt ID consult meropenem, vancomycin, micafungin ct abd/ pelvis with IV contrast: 06/18/15 Conclusion: 1. Chronic nonspecific urinary bladder wall thickening. Bladder collapsed with Putnam catheter in place. 2.Chronic bilateral mid to lower zone groundglass opacity. 3. Nonobstructing left renal calculus. 4. Distended rectum Endo: fingersticks and sliding scale coverage DVT prof: scd and lovenox ordered GI prof: protonix wound care for stage 2 6x2 cm sacral wound critical care time 40 min nonprocedural time Jules Moss MD June 19, 2015 14:15
--- NOTE | 2015-06-19 16:18 | PD.ID.CON ---
History of Present Illness Service Infectious disease Consult Requested By Dr. Willams Reason for Consult Evaluation and management of sepsis in a patient who has chronic respiratory failure status post tracheostomy and PEG tube. Primary Care Physician Unknown Diagnoses: History of Present Illness Most of the history was obtained by review of medical records as patient is nonverbal with advanced dementia and Parkinson's disease. Mr. Foreman is a 54-year-old male with past medical history significant for Parkinson's disease, advanced dementia, hyponatremia, history of ESBL UTI in February 2015 who is a resident of [facility]. It appears that patient was found by halfway staff to be less alert and having respiratory difficulty and fevers. Patient was brought to the emergency department and placed on a ventilator. Patient underwent a sepsis workup on admission. Patient's temperature on admission was 100.9, heart rate of 98, respiratory rate of 38, blood pressure 104/61, trach collar 5. [facility] records reveal a temperature of 101.1 associated with low blood pressure. WBC and admission was 16.4, UA positive reflex to culture. Lactic acid 4, troponin 0.02 creatinine of 0.76. Chest x-ray on admission no acute infiltrate. CT abdomen pelvis with chronic nonspecific urinary bladder wall thickening, collapse bladder with Putnam in place. Patient also has chronic bilateral mid to lower zone ground glass opacity. Nonobstructing left renal calculus and a distended rectum. CT of the head on June 18, 2015 shows diffuse atrophy, no acute findings. Infectious disease is consulted for evaluation and management of sepsis in a patient with chronic respiratory failure status post tracheostomy and PEG tube placement. Review of Systems ROS Limitations: Altered Mental Status Past Family Social History Allergies: Coded Allergies: *MDRO Multi-Drug Resistant Organism (Verified Adverse Reaction, Unknown, ) ESBL E. coli (urine) - 02/19/2015 MRSA PCR positive - 03/20/2015 Past Medical History Parkinson's disease Advanced dementia Hyponatremia Anxiety Pneumonia GERD Cognitive disorder Behavioral disturbances Anxiety disorder Idiopathic progressive neuropathy Essential hypertension Stage II pressure ulcer of right buttock. Diabetes mellitus. Past Surgical History Tracheostomy. Gastrostomy. On examination of the CT abdomen pelvis appeared that patient has left femur metallic prosthesis. Reported Medications Reported Meds & Active Scripts Active Fentanyl 25 Mcg/Hr patch (Fentanyl) 25 Mcg/Hr Dis 1 Patch T-DERMAL Q3D 10 Days Clonazepam 1 Mg Tab 1 Mg GT BID 10 Days Diflucan 100 mg (Fluconazole) 100 Mg Tab 100 Mg PO DAILY Amoxicillin 875 Mg Tab 875 Mg PO Q12HR 10 Days Heparin Sq 10,000 Units/Ml (Heparin Sodium (Porcine)) 10,000 Units/Ml Inj 5, 000 Units SQ Q8HR 30 Days Lactinex (Lactobacillus Acidophilus) 1 Tab Tab 1 Tab PO TID 10 Days Reported Humalog Insulin Supplemental Scale (Insulin Human Lispro) 100 Units/Ml Inj 2- 12 Units SQ TIDACHS Medium Dose Lispro Insulin Sliding Scale = Max dose at bedtime:( )units; Max dose at 3am:( ); blood sugars less than 70 take zero insulin units; blood sugars 151-200 take 3 unit; blood sugars 20-250 take 5 units; blood sugars 251-300 take 10 units; blood sugars 301-350 take 12 units; blood sugars 351-400 take 12 units; blood sugars greater than 401 take 15 units & call MD Stoll 400 Gm (Silver Sulfadiazine) 400 Applic/400 Gm Cr 1 Applic TOP DAILY APPLY TO RIGHT BUTTOCKS Lortab 5 mg/325 mg (Hydrocodone/Acetaminophen 5 mg/325 mg) 1 Tab 1 Tab G-TUBE Q6HR PRN Potassium Chloride CR 20 meq 20 Meq Tab 40 Meq G-TUBE DAILY Paroxetine Hcl 20 Mg Tab 20 Mg G-TUBE DAILY Gabapentin 300 Mg Cap 300 Mg G-TUBE BID Ranitidine 150 mg (Ranitidine HCl) 150 Mg Tab 150 Tab G-TUBE BID Diphenhydramine 25 mg (Diphenhydramine HCl) 25 Mg Tab 25 Mg G-TUBE Q6HR Quetiapine Fumarate 25 Mg Tab 12.5 Mg G-TUBE DAILY Proamatine 5 Mg Tab (Midodrine) 5 Mg Tab 2.5 Mg G-TUBE BID Famotidine 20 Mg Tab 20 Mg G-TUBE BID Sinemet 25/100 (Carbidopa/Levodopa) 25 Mg/100 Mg Tab 1 Tab GT Q8HR Acetylcysteine 20 % Helga 4 Ml INH BID Mapap (Acetaminophen) 325 Mg Tab 650 Mg G-TUBE Q4H PRN Olanzapine 2.5 Mg Tab 2.5 Mg GT HS Accuneb 1.25 mg/3 ml (Albuterol Sulfate) 1.25 Mg/3 Ml Neb 1.25 Mg NEB Q6HR NEB PRN Active Ordered Medications Current Medications Medications (Trade) Dose Ordered Sig/Jassi Route Start Time Stop Time Status Last Admin (NS 1000 ml Inj) 1,000 ml @ 125 mls/hr Q8H IV 06/18/15 21:27 06/19/15 13:27 (NS Flush) 2 ml UNSCH PRN IVF 06/18/15 21:30 (NS Flush) 2 ml BID IVF 06/19/15 09:00 06/19/15 10:23 (Tylenol 650 Mg/ 20 ml Liq) 650 mg Q6H PRN TUBE 06/18/15 21:30 (Protonix Inj) 40 mg DAILY IV 06/19/15 09:00 06/19/15 10:23 (Tears Naturale Opth Soln) 1 drop TID EACH EYE 06/19/15 09:00 06/19/15 13:00 (Zofran Inj) 4 mg Q6H PRN IV 06/18/15 21:30 (Lovenox Inj) 30 mg Q24H SQ 06/18/15 22:00 06/18/15 22:47 Miscellaneous Information 1 Q361D XX 06/18/15 21:30 06/18/15 21:30 (Chlorhexidine 2% Cloth) 3 pack Taper DAILY@04 TOP 06/19/15 04:00 06/14/16 03:59 06/19/15 04:00 Chlorhexidine Gluconate 3 pack 3 pack UNSCH PRN TOP 06/18/15 21:30 Potassium Chloride 100 ml @ 50 mls/hr Q2H PRN IV 06/18/15 21:45 (KCl 20 Meq Premix Inj) 100 ml @ 50 mls/hr Q2H PRN IV 06/18/15 21:45 Potassium Chloride 40 meq 40 meq UNSCH PRN PO/TUBE 06/18/15 21:45 Potassium Chloride 100 ml @ 25 mls/hr UNSCH PRN IV 06/18/15 21:45 Potassium Chloride 100 ml @ 50 mls/hr Q2H PRN IV 06/18/15 21:45 (Magnesium Sulfate Inj/NS Inj) 100 ml @ 50 mls/hr UNSCH PRN IV 06/18/15 21:45 Magnesium Oxide 800 mg 800 mg UNSCH PRN PO 06/18/15 21:45 (Magnesium Sulfate Inj/NS Inj) 100 ml @ 50 mls/hr UNSCH PRN IV 06/18/15 21:45 Potassium Phosphate 2000 mg 2,000 mg Q4H PRN PO 06/18/15 21:45 (Sodium Phosphate Inj/NS 250 ml Inj) 250 ml @ 42 mls/hr UNSCH PRN IV 06/18/15 21:45 (KCl 40 Meq/30 ml Liq) 40 meq UNSCH PRN PO/TUBE 06/18/15 21:45 Potassium Phosphate 2000 mg 2,000 mg UNSCH PRN PO/TUBE 06/18/15 21:45 (Potassium Phosphate Inj/NS 250 ml Inj) 260 ml @ 42 mls/hr UNSCH PRN IV 06/18/15 21:45 (D50w (Vial) Inj) 25 ml UNSCH PRN IV PUSH 06/18/15 21:45 (Glucagon Inj) 1 mg UNSCH PRN OTHER 06/18/15 21:45 Insulin Human Regular 1 1 Q6HR SQ 06/19/15 00:00 Meropenem 500 mg/ Sodium Chloride 100 ml @ 200 mls/hr Q8H IV 06/18/15 22:00 06/19/15 14:37 Pharmacy Profile Note 0 ml @ 0 mls/hr UNSCH XX 06/18/15 21:45 (Mycamine Inj/NS Inj) 100 ml @ 100 mls/hr Q24H IV 06/18/15 23:00 06/18/15 23:53 (Sinemet 25-100 Mg) 1 tab Q8HR GT 06/19/15 06:00 06/19/15 14:37 (Neurontin) 300 mg BID G-TUBE 06/19/15 09:00 06/19/15 10:22 (Lactinex) 1 tab TID PO 06/19/15 09:00 06/19/15 14:37 (Proamatine) 2.5 mg BID G-TUBE 06/19/15 09:00 06/19/15 10:22 (ZyPREXA) 2.5 mg HS GT 06/19/15 21:00 (Paxil) 20 mg DAILY G-TUBE 06/19/15 09:00 06/19/15 10:22 (SEROquel) 12.5 mg DAILY G-TUBE 06/19/15 09:00 06/19/15 10:22 Miscellaneous 1 ea 1 ea UNSCH PRN OTHER 06/19/15 03:30 (Vancomycin Inj/ NS 250 ml Inj) 250 ml @ 250 mls/hr Q12H IV 06/19/15 10:00 06/19/15 10:23 Miscellaneous Information SPECIFIC LAB TO BE DRAWN:VANCOMYCIN TROUGH DATE TO... ONCE ONCE XX 06/21/15 09:45 06/21/15 09:46 (Diprivan 1000 Mg/100ml Inj) 100 ml @ 0 mls/hr TITRATE IV 06/19/15 12:30 (Peridex 0.12% Liq) 15 ml BID@08,20 MT 06/19/15 20:00 Family History Could not be obtained. Social History Resident of halfway. Review of medical records reveals that patient is full code. Patient has a daughter by the name Radha Foreman Physical Exam Vital Signs Vital Signs Date Time Temp Pulse Resp B/P Pulse Ox O2 Delivery O2 Flow Rate FiO2 06/19/15 15:08 100 35 06/19/15 14:00 77 06/19/15 12:51 100 35 06/19/15 12:00 80 06/19/15 10:03 99 35 06/19/15 10:00 73 06/19/15 08:25 100 35 06/19/15 08:00 70 06/19/15 07:40 35 06/19/15 07:35 100 35 06/19/15 06:00 62 06/19/15 04:09 100 35 06/19/15 04:00 65 06/19/15 02:00 82 06/19/15 01:20 100 35 06/19/15 01:15 99.5 78 28 146/90 99 06/19/15 01:00 100 100 06/19/15 00:27 99.0 77 22 134/72 100 Room Air 06/19/15 00:15 100 35 06/18/15 22:48 84 22 129/78 100 Trach Collar 06/18/15 21:38 100 40 06/18/15 20:48 107 28 152/91 100 Trach Collar 06/18/15 19:30 100 100 06/18/15 19:00 88 29 107/73 99 Ventilator 06/18/15 18:00 98 36 123/67 98 Ventilator 06/18/15 18:00 99 40 06/18/15 17:15 99 Trach Collar 5 06/18/15 17:15 98 100 Trach Collar 06/18/15 17:15 100.9 98 38 104/61 99 06/18/15 17:15 17 Trach Collar Physical Exam GENERAL: Chronically ill-appearing, aphasic, not in acute distress. Cachectic with not much body fat. SKIN: No generalized rashes, ecchymoses or lesions. Cool and dry. HEAD: Atraumatic. Normocephalic. No temporal or scalp tenderness. EYES: Pupils equal round and reactive. ENT: Grossly nothing abnormal detected. Trach site with no evidence of infection. NECK: No lymphadenopathy. Supple, nontender, no meningeal signs. CARDIOVASCULAR: No murmur appreciated. RESPIRATORY: Clear to auscultation. Breath sounds equal bilaterally with decrease in the bases. GASTROINTESTINAL: Abdomen soft, non-tender, nondistended. PEG tube site with no evidence of infection. MUSCULOSKELETAL: Increased tone in all extremities. Rigidity noted. NEUROLOGICAL: Opens eyes spontaneously. No verbal response does not follow commands. Psych could not be assessed IV line sites with no evidence of infection. No lines present on admission. Laboratory Laboratory Tests Test 06/18/15 06/18/15 06/18/15 06/18/15 17:30 17:32 17:34 18:00 White Blood Count 16.4 Red Blood Count 3.81 Hemoglobin 11.3 Hematocrit 34.3 Mean Corpuscular Volume 90.1 Mean Corpuscular Hemoglobin 29.7 Mean Corpuscular Hemoglobin 32.9 Concent Red Cell Distribution Width 12.9 Platelet Count 176 Mean Platelet Volume 11.0 Neutrophils (%) (Auto) 89.9 Lymphocytes (%) (Auto) 4.5 Monocytes (%) (Auto) 5.2 Eosinophils (%) (Auto) 0.1 Basophils (%) (Auto) 0.3 Neutrophils # (Auto) 14.7 Lymphocytes # (Auto) 0.7 Monocytes # (Auto) 0.8 Eosinophils # (Auto) 0.0 Basophils # (Auto) 0.1 CBC Comment DIFF FINAL Differential Comment Prothrombin Time 11.4 Prothromb Time International 1.1 Ratio Activated Partial 29.4 Thromboplast Time Sodium Level 141 Potassium Level 4.5 Chloride Level 105 Carbon Dioxide Level 27.4 Anion Gap 9 Blood Urea Nitrogen 21 Creatinine 0.85 Estimat Glomerular Filtration 95 Rate Random Glucose 116 Calcium Level 9.6 Total Bilirubin 0.6 Aspartate Amino Transf 23 (AST/SGOT) Alanine Aminotransferase 38 (ALT/SGPT) Alkaline Phosphatase 59 Troponin I LESS THAN 0.02 Total Protein 7.5 Albumin 3.2 Urine Color YELLOW Urine Turbidity HAZY Urine pH 7.5 Urine Specific [place] 1.026 Urine Protein 100 Urine Glucose (UA) NEG Urine Ketones NEG Urine Occult Blood LARGE Urine Nitrite NEG Urine Bilirubin NEG Urine Urobilinogen 2.0 Urine Leukocyte Esterase LARGE Urine RBC Urine WBC Urine Bacteria FEW Urine Mucus MANY Urine Yeast with Hyphae FEW Urine Yeast (Budding) FEW Microscopic Urinalysis Comment CATH-CULTURE IND Lactic Acid Level 4.0 Blood Gas Puncture Site RT RADIAL Blood Gas Patient Temperature 98.6 Blood Gas HCO3 27 Blood Gas Base Excess 4.2 Blood Gas Oxygen Saturation 95 Arterial Blood pH 7.53 Arterial Blood Partial 33 Pressure CO2 Arterial Blood Partial 108 Pressure O2 Arterial Blood Oxygen Content 28.8 Arterial Blood 1.2 Carboxyhemoglobin Arterial Blood Methemoglobin 1.7 Blood Gas Hemoglobin 21.6 Oxygen Delivery Device TRACH MASK Blood Gas Inspired Oxygen 40 Test 06/18/15 06/18/15 06/19/15 06/19/15 20:25 21:45 01:15 04:47 Lactic Acid Level 3.4 1.9 Sodium Level 141 144 Potassium Level 4.3 3.9 Chloride Level 109 112 Carbon Dioxide Level 24.0 26.1 Anion Gap 8 6 Blood Urea Nitrogen 18 14 Creatinine 0.76 0.56 Estimat Glomerular Filtration 108 153 Rate Random Glucose 105 93 Hemoglobin A1c 5.5 Calcium Level 8.3 8.6 Phosphorus Level 2.8 3.1 Magnesium Level 1.7 1.7 Total Bilirubin 0.7 0.7 Aspartate Amino Transf 20 17 (AST/SGOT) Alanine Aminotransferase 32 31 (ALT/SGPT) Alkaline Phosphatase 53 49 Ammonia 25 20 Total Creatine Kinase 77 Troponin I LESS THAN 0.02 LESS THAN 0.02 Total Protein 6.4 6.5 Albumin 2.6 2.8 Triglycerides Level 64 Cholesterol Level 71 LDL Cholesterol 29 HDL Cholesterol 29.5 Cholesterol/HDL Ratio 2.40 Free Thyroxine 1.35 Free Triiodothyronine (T3) 1.36 pg/dL Thyroid Stimulating Hormone 1.800 3rd Gen Nasal Screen MRSA (PCR) NEGATIVE White Blood Count 9.1 Red Blood Count 3.60 Hemoglobin 10.9 Hematocrit 32.8 Mean Corpuscular Volume 91.0 Mean Corpuscular Hemoglobin 30.4 Mean Corpuscular Hemoglobin 33.4 Concent Red Cell Distribution Width 13.4 Platelet Count 140 Mean Platelet Volume 9.8 Neutrophils (%) (Auto) 76.5 Lymphocytes (%) (Auto) 14.2 Monocytes (%) (Auto) 5.6 Eosinophils (%) (Auto) 3.1 Basophils (%) (Auto) 0.6 Neutrophils # (Auto) 7.0 Lymphocytes # (Auto) 1.3 Monocytes # (Auto) 0.5 Eosinophils # (Auto) 0.3 Basophils # (Auto) 0.1 CBC Comment DIFF FINAL Differential Comment Prothrombin Time 12.5 Prothromb Time International 1.2 Ratio Activated Partial 34.7 Thromboplast Time Prealbumin 13 Test 06/19/15 05:38 Blood Gas Puncture Site LT BRACHIAL Blood Gas Patient Temperature 98.6 Blood Gas HCO3 22 Blood Gas Base Excess -1.9 Blood Gas Oxygen Saturation 97 Arterial Blood pH 7.40 Arterial Blood Partial 37 Pressure CO2 Arterial Blood Partial 157 Pressure O2 Arterial Blood Oxygen Content 14.9 Arterial Blood 1.0 Carboxyhemoglobin Arterial Blood Methemoglobin 0.8 Blood Gas Hemoglobin 10.7 Oxygen Delivery Device VENTILATOR Blood Gas Ventilator Setting AC14/500/PEEP5 Blood Gas Inspired Oxygen 35 Date/Time Procedure Status Source Growth 06/18/15 18:20 Aerobic Blood Culture - Preliminary Resulted Blood Peripheral NO GROWTH IN 1 DAY 06/18/15 18:20 Anaerobic Blood Culture - Preliminary Resulted Blood Peripheral NO GROWTH IN 1 DAY 06/18/15 18:00 Gram Stain - Final Resulted Sputum Endotracheal 06/18/15 18:00 Sputum Culture - Preliminary Resulted Gram Negative Jesse 06/18/15 17:32 Urine Culture - Preliminary Resulted Urine Catheterized Urine IMMATURE GROWTH - REINCUBATE Result Diagram: 06/19/15 0447 06/19/15 0447 Imaging Last Impressions Head CT 06/18/151902 Signed Impressions: Service Date/Time: June 19:31 - CONCLUSION: Diffuse atrophy unchanged. No acute intracranial findings. Kush Briscoe MD Abdomen/Pelvis CT 06/18/151902 Signed Impressions: Service Date/Time: June 19:36 - CONCLUSION: 1. Chronic nonspecific urinary bladder wall thickening. Bladder collapsed with Putnam catheter in place. 2. Chronic bilateral mid to lower lung zone groundglass opacity. 3. Nonobstructing left renal calculus. 4. Distended rectum. Kush Briscoe MD Chest X-Ray 06/18/15 1731 Signed Impressions: Service Date/Time: June 18:02 - CONCLUSION: No acute cardiopulmonary disease identified. Kush Briscoe MD Assessment and Plan Assessment and Plan Sepsis present on admission. Possible acute tracheobronchitis. Chest x-ray is negative except for some chronic ground glass opacities. Acute on chronic respiratory failure was on trach and had to be placed on ventilator. Acute encephalopathy sepsis but has an underlying diagnosis of advanced dementia as well as advanced Parkinson's disease. Sputum with gram-negative rods identification pending\ Prior history of ESBL UTI Prior history of MRSA colonization. Status post trach Status post gastrostomy tube with no evidence of infection. Stage II sacral decubitus ulcer present on admission. Recommendations Discontinue micafungin. Continue meropenem IV for now in view of prior history of ESBL infections. Once gram-negative jesse is identified meropenem can be de-escalated. Continue vancomycin IV for now target trough 15-20 for pneumonia Follow blood cultures Follow sputum cultures to adjust regimen. Case discussed with RN. to cover for me this weekend. Trina Moss MD June 19, 2015 16:18 Case discussed with RN. Cerrato to cover for me this weekend. Trina Moss MD June 19, 2015 16:18
[2015-06-19] MEDS: OLANZapine 2.5 MG TAB GT SCH (20:52)
[2015-06-19] MEDS: CHLORHEXIDINE 0.12% (ORAL KIT) 15 ML CUP MT SCH (20:53)
[2015-06-19] MEDS: ENOXAPARIN SODIUM 30 MG/0.3 ML SYRINGE SQ SCH (21:01)
[2015-06-20] VITALS (19 sets, daily range): BP systolic 114–155; BP diastolic 73–99; PULSE 68–115; RESP 13–36; TEMP 97.9–98.6; O2SAT 93–100
[2015-06-20] MEDS: RESP: ALBUTEROL 2.5 MG/IPRATROPIUM 0.5 MG NEB (SCH) INH ×5 (04:12→20:12)
[2015-06-20 04:40] LABS: AUTOMATED NEUTROPHIL # 7.1 TH/MM3 (1.8-7.7); BASOPHIL % 0.3 % (0.0-2.0); EOSINOPHIL # 0.3 TH/MM3 (0-0.4); EOSINOPHIL % 3.5 % (0.0-4.0); HEMATOCRIT 27.5 % (39.0-51.0); HEMO FLAGS DIFF FINAL; LYMPH % 9.1 % (9.0-44.0); LYMPHOCYTE # 0.8 TH/MM3 (1.0-4.8); MEAN CELL VOLUME 91.6 FL (80.0-100.0); MEAN CORPUSCULAR HEMOGLOBIN 30.4 PG (27.0-34.0); MEAN CORPUSCULAR HGB CONC 33.2 % (32.0-36.0); MONO % 7.2 % (0.0-8.0); NEUT % 79.9 % (16.0-70.0); PLATELET COUNT 133 TH/MM3 (150-450); RED BLOOD COUNT 3.01 MIL/MM3 (4.50-5.90); RED CELL DISTRIBUTION WIDTH 13.2 % (11.6-17.2); WHITE BLOOD COUNT 8.9 TH/MM3 (4.0-11.0)
[2015-06-20 05:08] LABS: ALT (GPT) 11 U/L (12-78); ANION GAP 8 MEQ/L (5-15); AST (GOT) 15 U/L (15-37); BICARBONATE 25.1 MEQ/L (21.0-32.0); BLOOD UREA NITROGEN 7 MG/DL (7-18); CHLORIDE 113 MEQ/L (98-107); GLOMERULAR FILTRATION RATE 192 ML/MIN (>89); MAGNESIUM 1.7 MG/DL (1.5-2.5); POTASSIUM 3.4 MEQ/L (3.5-5.1); SODIUM (NA) 146 MEQ/L (136-145)
[2015-06-20 05:10] LABS: ALKALINE PHOSPHATASE 48 U/L (45-117); TOTAL BILIRUBIN ADULT 0.4 MG/DL (0.2-1.0)
[2015-06-20] MEDS: SODIUM CHLOR 0.9% 1000 ML INJ 1,000 ML IV SCH ×3 (05:11→19:57)
[2015-06-20] MEDS: CHLORHEXIDINE GLUCONATE 2 % 1 PACK (2 CLOTHS) TOP SCH ×2 (05:11→19:57)
[2015-06-20] MEDS: INSULIN NovoLIN REGULAR SUPPLEMENTAL SCALE SQ SCH ×5 (05:12→22:23)
[2015-06-20] MEDS: MEROPENEM INJ 500 MG in SODIUM CHLORIDE 0.9% INJ 100 ML IV SCH ×3 (05:12→19:55)
[2015-06-20] MEDS: CARBIDOPA/LEVODOPA 25 MG/100 MG TAB GT SCH ×3 (05:12→19:56)
--- NOTE | 2015-06-20 06:02 | RADRPT ---
EXAM DATE/TIME: 06/20/2015 04:18 [facility] COMPARISON: CHEST SINGLE AP, June 18, 2015, 18:02. INDICATIONS : Shortness of breath, possible pulmonary disease. MEDICAL HISTORY : Hypertension. Gastroesophageal reflux disease. Diabetes mellitus type II. SURGICAL HISTORY : None. ENCOUNTER: Subsequent ACUITY: 4 - 6 days PAIN SCORE: Non-responsive. LOCATION: Bilateral chest FINDINGS: Tracheostomy tube is present in satisfactory position. The lungs are clear without infiltrate, nodule , or mass. There is no appreciable pleural effusion for technique. Heart and mediastinum are unrema rkable. The rest of the examination has not significantly changed. CONCLUSION: No acute cardiopulmonary disease. Eugene Schmid MD on June 20, 2015 at 5:59 Board Certified Radiologist. This report was verified electronically.
[2015-06-20] MEDS: POTASSIUM CHLOR 20 MEQ PREMIX 100 ML IV PRN ×2 (06:11→12:47)
[2015-06-20] MEDS: CHLORHEXIDINE 0.12% (ORAL KIT) 15 ML CUP MT SCH ×2 (08:00→19:57)
[2015-06-20] MEDS: ARTIFICIAL TEARS OPTH SOLN 15 ML BTL EACH EYE SCH ×3 (09:00→17:39)
[2015-06-20] MEDS ORDERED: PHARMACY ORDERED LAB XX ONE (09:45)
[2015-06-20] MEDS: LACTOBACILLUS ACIDOPHILUS TAB PO SCH ×3 (10:01→17:39)
[2015-06-20] MEDS: GABAPENTIN 300 MG CAP G-TUBE SCH ×2 (10:01→19:57)
[2015-06-20] MEDS: VANCOMYCIN 1,000 MG/NS 250 ML IV SCH ×4 (10:01→19:55)
[2015-06-20] MEDS: MIDODRINE 5 MG TAB G-TUBE SCH ×2 (10:01→19:56)
[2015-06-20] MEDS: PARoxetine HCL 20 MG TAB G-TUBE SCH (10:01)
[2015-06-20] MEDS: QUEtiapine FUMARATE 25 MG TAB G-TUBE SCH (10:01)
[2015-06-20] MEDS: PANTOPRAZOLE SODIUM 40 MG VIAL IV SCH (10:02)
[2015-06-20] MEDS: SODIUM CHLORIDE 0.9% FLUSH 5 ML FLUSH IVF SCH ×2 (10:02→19:57)
--- NOTE | 2015-06-20 14:30 | HHI.CCPN ---
Subjective Remarks/Hospital Course 06/17: Pt is a 54 yr man with multiple medial problems including Parkinson's disease, advanced dementia, hyponatremia, anxiety, pneumonia, GERD, cognitive disorder, and multidrug resistant UTI- ESBL02/19/15 , who resides in a half-way. Pt by report was found by staff in half-way to be less alert and having respiratory difficultly and fevers. Pt was brought to ED adn placed on ventilator. His workup was inclusive of labs, chest xray and ct head and abd/pelvis. WBC 16.4, +UTI, lactic acid 4, troponin ,0.02, BUN/ cre 18/ 0.76. CT head 06/18/15: diffuse atrophy unchanged. No acute intracranial findings ct abd/ pelvis with IV contrast: 06/18/15 Conclusion: 1. Chronic nonspecific urinary bladder wall thickening. Bladder collapsed with Putnam catheter in place. 2.Chronic bilateral mid to lower zone groundglass opacity. 3. Nonobstructing left renal calculus. 4. Distended rectum Pt admitted and fluid and abx ordered. 06/18: Drowsy, easily arousable. On mechanical ventilation via tracheostomy. Tachypneic. Resting tremor noted. 06/19: Drowsy, arousable. On mechanical ventilation via tracheostomy. Objective - Vital Signs Date Time Temp Pulse Resp B/P Pulse Ox O2 Delivery O2 Flow Rate FiO2 06/20/15 14:00 97 06/20/15 12:00 98.6 22 121/73 100 06/20/15 11:33 35 06/19/15 00:27 Room Air 06/18/15 17:15 5 I/O 06/19/15 06/19/15 06/20/15 08:00 16:00 00:00 Intake Total 0 ml 1394 ml 571 ml Output Total 900 ml 840 ml 450 ml Balance -900 ml 554 ml 121 ml Result Diagram: 06/20/15 0335 06/20/15 0335 Other Results Laboratory Tests Test 06/20/15 06/20/15 03:35 11:28 White Blood Count 8.9 TH/MM3 Red Blood Count 3.01 MIL/MM3 Hemoglobin 9.1 GM/DL Hematocrit 27.5 % Mean Corpuscular Volume 91.6 FL Mean Corpuscular Hemoglobin 30.4 PG Mean Corpuscular Hemoglobin 33.2 % Concent Red Cell Distribution Width 13.2 % Platelet Count 133 TH/MM3 Mean Platelet Volume 10.7 FL Neutrophils (%) (Auto) 79.9 % Lymphocytes (%) (Auto) 9.1 % Monocytes (%) (Auto) 7.2 % Eosinophils (%) (Auto) 3.5 % Basophils (%) (Auto) 0.3 % Neutrophils # (Auto) 7.1 TH/MM3 Lymphocytes # (Auto) 0.8 TH/MM3 Monocytes # (Auto) 0.6 TH/MM3 Eosinophils # (Auto) 0.3 TH/MM3 Basophils # (Auto) 0.0 TH/MM3 CBC Comment DIFF FINAL Differential Comment Sodium Level 146 MEQ/L Potassium Level 3.4 MEQ/L Chloride Level 113 MEQ/L Carbon Dioxide Level 25.1 MEQ/L Anion Gap 8 MEQ/L Blood Urea Nitrogen 7 MG/DL Creatinine 0.46 MG/DL Estimat Glomerular Filtration 192 ML/MIN Rate Random Glucose 77 MG/DL Calcium Level 8.6 MG/DL Phosphorus Level 3.0 MG/DL Magnesium Level 1.7 MG/DL Total Bilirubin 0.4 MG/DL Aspartate Amino Transf 15 U/L (AST/SGOT) Alanine Aminotransferase 11 U/L (ALT/SGPT) Alkaline Phosphatase 48 U/L Total Protein 6.0 GM/DL Albumin 2.5 GM/DL Vancomycin Level Trough 34.3 MCG/ML Imaging Last Impressions Head CT 06/18/151902 Signed Impressions: Service Date/Time: June 19:31 - CONCLUSION: Diffuse atrophy unchanged. No acute intracranial findings. Kush Briscoe MD Abdomen/Pelvis CT 06/18/151902 Signed Impressions: Service Date/Time: June 19:36 - CONCLUSION: 1. Chronic nonspecific urinary bladder wall thickening. Bladder collapsed with Putnam catheter in place. 2. Chronic bilateral mid to lower lung zone groundglass opacity. 3. Nonobstructing left renal calculus. 4. Distended rectum. Kush Briscoe MD Chest X-Ray 06/18/15 5922 Signed Impressions: Service Date/Time: June 18:02 - CONCLUSION: No acute cardiopulmonary disease identified. Kush Briscoe MD Objective Remarks Neuro : Drowsy, easily arousable, opens eyes spontaneously, pupils 3mm reactive b/l. Resting tremor noted in bilateral upper extremities sceral clear no icterus moves upper ext + tremors of upper ext lower ext contracted and stiff, they cross over each other and he is not very mobile, contraction at hips and entire legs- fixed in position. + dp pulses b/l + radial pulses b/l chest : On mechanical ventilation via tracheostomy, good air entry bilaterally, scattered rhonchi, no wheezing cardiac s1s2 regular ryhtum abd left upper quadrant feeding tube area around clean soft +bs A/P Assessment and Plan Neuro: Encephalopathy, Parkinson's disease, cognitive disorder likely secondary to metabolic with sepsis from UTI CT head 06/18/15: diffuse atrophy unchanged. No acute intracranial findings on repeat exam in ICU pt is reactive and opens eyes immediately restarted his listed outpt anti psych mediations and Parkinson's medication Resp: chronic trach, acute on chronic resp failure, pneumonia Continue mechanical ventilation. Daily C Pap trials as tolerated. 12/ 500/ 5/35% breathing treatments around the clock and prn sputum culture ordered. Cardiac; septic Continue IV hydration. Watch for hypotension troponin <0.02 GI: nutrition consult prealbumin ordered : BUN/ 18/ 0.76 electrolyte replacement protocol ordered mag 1.7 replacement ordered ID: history of mulitdrug resistant UTI, current UTI multidrug resistant UTI- ESBL02/19/15 , MRSA + 03/20/15 Heena glabrata in urine 03/19/15 pancultured pt ID consult On meropenem, vancomycin per ID. Micafungin stopped 06/18 ct abd/ pelvis with IV contrast: 06/18/15 Conclusion: 1. Chronic nonspecific urinary bladder wall thickening. Bladder collapsed with Putnam catheter in place. 2.Chronic bilateral mid to lower zone groundglass opacity. 3. Nonobstructing left renal calculus. 4. Distended rectum Endo: fingersticks and sliding scale coverage DVT prof: scd and lovenox ordered GI prof: protonix wound care for stage 2 6x2 cm sacral wound critical care time 40 min nonprocedural time Jules Moss MD June 20, 2015 14:30
[2015-06-20] MEDS: ENOXAPARIN SODIUM 30 MG/0.3 ML SYRINGE SQ SCH (19:54)
[2015-06-20] MEDS: OLANZapine 2.5 MG TAB GT SCH (19:55)
[2015-06-20] MEDS: MORPHINE SULFATE ORAL SOLN 10 MG/0.5 ML SYRINGE PO PRN (22:13)
[2015-06-21] VITALS (19 sets, daily range): BP systolic 93–134; BP diastolic 60–85; PULSE 65–93; RESP 19–24; TEMP 98.2–98.7; O2SAT 100
[2015-06-21] MEDS: RESP: ALBUTEROL 2.5 MG/IPRATROPIUM 0.5 MG NEB (SCH) INH ×7 (00:07→23:32)
[2015-06-21] MEDS: SODIUM CHLOR 0.9% 1000 ML INJ 1,000 ML IV SCH ×3 (01:13→21:04)
[2015-06-21] MEDS: INSULIN NovoLIN REGULAR SUPPLEMENTAL SCALE SQ SCH ×4 (04:17→23:08)
[2015-06-21] MEDS: CARBIDOPA/LEVODOPA 25 MG/100 MG TAB GT SCH ×3 (04:22→20:37)
[2015-06-21] MEDS: MORPHINE SULFATE ORAL SOLN 10 MG/0.5 ML SYRINGE PO PRN ×2 (04:23→20:36)
[2015-06-21] MEDS: MEROPENEM INJ 500 MG in SODIUM CHLORIDE 0.9% INJ 100 ML IV SCH ×3 (04:45→20:36)
[2015-06-21 05:56] LABS: AUTOMATED NEUTROPHIL # 5.8 TH/MM3 (1.8-7.7); BASOPHIL % 0.4 % (0.0-2.0); EOSINOPHIL # 0.3 TH/MM3 (0-0.4); EOSINOPHIL % 3.4 % (0.0-4.0); HEMATOCRIT 27.4 % (39.0-51.0); HEMO FLAGS DIFF FINAL; LYMPH % 15.2 % (9.0-44.0); LYMPHOCYTE # 1.2 TH/MM3 (1.0-4.8); MEAN CELL VOLUME 91.5 FL (80.0-100.0); MEAN CORPUSCULAR HEMOGLOBIN 30.5 PG (27.0-34.0); MEAN CORPUSCULAR HGB CONC 33.3 % (32.0-36.0); MONO % 7.3 % (0.0-8.0); NEUT % 73.7 % (16.0-70.0); PLATELET COUNT 164 TH/MM3 (150-450); RED BLOOD COUNT 2.99 MIL/MM3 (4.50-5.90); RED CELL DISTRIBUTION WIDTH 13.2 % (11.6-17.2); WHITE BLOOD COUNT 7.8 TH/MM3 (4.0-11.0)
[2015-06-21 06:01] LABS: BLOOD UREA NITROGEN 5 MG/DL (7-18)
[2015-06-21 06:02] LABS: AST (GOT) 13 U/L (15-37); BICARBONATE 26.5 MEQ/L (21.0-32.0); GLOMERULAR FILTRATION RATE 175 ML/MIN (>89)
[2015-06-21 06:05] LABS: ALKALINE PHOSPHATASE 47 U/L (45-117); ALT (GPT) 14 U/L (12-78); ANION GAP 8 MEQ/L (5-15); CHLORIDE 109 MEQ/L (98-107); POTASSIUM 3.1 MEQ/L (3.5-5.1); SODIUM (NA) 143 MEQ/L (136-145); TOTAL BILIRUBIN ADULT 0.4 MG/DL (0.2-1.0)
[2015-06-21] MEDS: POTASSIUM CHLOR 20 MEQ PREMIX 100 ML IV PRN ×4 (06:26→17:45)
[2015-06-21] MEDS: ARTIFICIAL TEARS OPTH SOLN 15 ML BTL EACH EYE SCH ×3 (09:00→17:46)
[2015-06-21] MEDS: MIDODRINE 5 MG TAB G-TUBE SCH ×2 (09:22→20:37)
[2015-06-21] MEDS: CHLORHEXIDINE 0.12% (ORAL KIT) 15 ML CUP MT SCH ×2 (09:22→20:36)
[2015-06-21] MEDS: PARoxetine HCL 20 MG TAB G-TUBE SCH (09:22)
[2015-06-21] MEDS: PANTOPRAZOLE SODIUM 40 MG VIAL IV SCH (09:22)
[2015-06-21] MEDS: GABAPENTIN 300 MG CAP G-TUBE SCH ×2 (09:22→20:37)
[2015-06-21] MEDS: LACTOBACILLUS ACIDOPHILUS TAB PO SCH ×3 (09:23→17:47)
[2015-06-21] MEDS: SODIUM CHLORIDE 0.9% FLUSH 5 ML FLUSH IVF SCH ×2 (09:23→20:37)
[2015-06-21] MEDS: QUEtiapine FUMARATE 25 MG TAB G-TUBE SCH (09:23)
[2015-06-21] MEDS: VANCOMYCIN 1,000 MG/NS 250 ML IV SCH ×2 (09:24)
[2015-06-21] MEDS ORDERED: PHARMACY ORDERED LAB XX ONE (09:45)
--- NOTE | 2015-06-21 11:04 | HHI.CCPN ---
Subjective Remarks/Hospital Course 06/17: Pt is a 54 yr man with multiple medial problems including Parkinson's disease, advanced dementia, hyponatremia, anxiety, pneumonia, GERD, cognitive disorder, and multidrug resistant UTI- ESBL02/19/15 , who resides in a skilled nursing. Pt by report was found by staff in skilled nursing to be less alert and having respiratory difficultly and fevers. Pt was brought to ED adn placed on ventilator. His workup was inclusive of labs, chest xray and ct head and abd/pelvis. WBC 16.4, +UTI, lactic acid 4, troponin ,0.02, BUN/ cre 18/ 0.76. CT head 06/18/15: diffuse atrophy unchanged. No acute intracranial findings ct abd/ pelvis with IV contrast: 06/18/15 Conclusion: 1. Chronic nonspecific urinary bladder wall thickening. Bladder collapsed with Putnam catheter in place. 2.Chronic bilateral mid to lower zone groundglass opacity. 3. Nonobstructing left renal calculus. 4. Distended rectum Pt admitted and fluid and abx ordered. 06/18: Drowsy, easily arousable. On mechanical ventilation via tracheostomy. Tachypneic. Resting tremor noted. 06/19: Drowsy, arousable. On mechanical ventilation via tracheostomy. 06/20: Drowsy, arousable. Remains on mechanical ventilation via tracheostomy. We'll repeat blood cultures, UA and urine cultures. Fluconazole IV added in view of yeast in urine. Objective - Vital Signs Date Time Temp Pulse Resp B/P Pulse Ox O2 Delivery O2 Flow Rate FiO2 06/21/15 10:00 86 06/21/15 09:48 100 35 06/21/15 08:00 98.2 19 128/85 06/19/15 00:27 Room Air 06/18/15 17:15 5 I/O 06/20/15 06/20/15 06/21/15 08:00 16:00 00:00 Intake Total 1180 ml 1454 ml 423 ml Output Total 1250 ml 1000 ml 1400 ml Balance -70 ml 454 ml -977 ml Result Diagram: 06/21/15 0337 06/21/15 0351 Other Results Laboratory Tests Test 06/20/15 06/20/15 03:35 11:28 White Blood Count 8.9 TH/MM3 Red Blood Count 3.01 MIL/MM3 Hemoglobin 9.1 GM/DL Hematocrit 27.5 % Mean Corpuscular Volume 91.6 FL Mean Corpuscular Hemoglobin 30.4 PG Mean Corpuscular Hemoglobin 33.2 % Concent Red Cell Distribution Width 13.2 % Platelet Count 133 TH/MM3 Mean Platelet Volume 10.7 FL Neutrophils (%) (Auto) 79.9 % Lymphocytes (%) (Auto) 9.1 % Monocytes (%) (Auto) 7.2 % Eosinophils (%) (Auto) 3.5 % Basophils (%) (Auto) 0.3 % Neutrophils # (Auto) 7.1 TH/MM3 Lymphocytes # (Auto) 0.8 TH/MM3 Monocytes # (Auto) 0.6 TH/MM3 Eosinophils # (Auto) 0.3 TH/MM3 Basophils # (Auto) 0.0 TH/MM3 CBC Comment DIFF FINAL Differential Comment Sodium Level 146 MEQ/L Potassium Level 3.4 MEQ/L Chloride Level 113 MEQ/L Carbon Dioxide Level 25.1 MEQ/L Anion Gap 8 MEQ/L Blood Urea Nitrogen 7 MG/DL Creatinine 0.46 MG/DL Estimat Glomerular Filtration 192 ML/MIN Rate Random Glucose 77 MG/DL Calcium Level 8.6 MG/DL Phosphorus Level 3.0 MG/DL Magnesium Level 1.7 MG/DL Total Bilirubin 0.4 MG/DL Aspartate Amino Transf 15 U/L (AST/SGOT) Alanine Aminotransferase 11 U/L (ALT/SGPT) Alkaline Phosphatase 48 U/L Total Protein 6.0 GM/DL Albumin 2.5 GM/DL Vancomycin Level Trough 34.3 MCG/ML Imaging Last Impressions Head CT 06/18/151902 Signed Impressions: Service Date/Time: June 19:31 - CONCLUSION: Diffuse atrophy unchanged. No acute intracranial findings. Kush Briscoe MD Abdomen/Pelvis CT 06/18/151902 Signed Impressions: Service Date/Time: June 19:36 - CONCLUSION: 1. Chronic nonspecific urinary bladder wall thickening. Bladder collapsed with Putnam catheter in place. 2. Chronic bilateral mid to lower lung zone groundglass opacity. 3. Nonobstructing left renal calculus. 4. Distended rectum. Kush Briscoe MD Chest X-Ray 06/18/15 0717 Signed Impressions: Service Date/Time: June 18:02 - CONCLUSION: No acute cardiopulmonary disease identified. Kush Briscoe MD Objective Remarks Neuro : Drowsy, easily arousable, opens eyes spontaneously, pupils 3mm reactive b/l. Resting tremor noted in bilateral upper extremities sceral clear no icterus moves upper ext + tremors of upper ext lower ext contracted and stiff, they cross over each other and he is not very mobile, contraction at hips and entire legs- fixed in position. + dp pulses b/l + radial pulses b/l chest : On mechanical ventilation via tracheostomy, good air entry bilaterally, scattered rhonchi, no wheezing cardiac s1s2 regular ryhtum abd left upper quadrant feeding tube area around clean soft +bs A/P Assessment and Plan Neuro: Encephalopathy, Parkinson's disease, cognitive disorder likely secondary to metabolic with sepsis from UTI CT head 06/18/15: diffuse atrophy unchanged. No acute intracranial findings on repeat exam in ICU pt is reactive and opens eyes immediately Continue his listed outpt anti psych mediations and Parkinson's medication Resp: chronic trach, acute on chronic resp failure, pneumonia Continue mechanical ventilation. Daily C Pap trials as tolerated. 12/ 500/ 5/35% breathing treatments around the clock and prn Cardiac; septic Continue IV hydration. Watch for hypotension troponin <0.02 GI: nutrition consult prealbumin ordered : Strict intake output, monitor and replete electrolytes, follow BUN/creatinine electrolyte replacement protocol ordered ID: history of mulitdrug resistant UTI, current UTI multidrug resistant UTI- ESBL02/19/15 , MRSA + 03/20/15 Heena glabrata in urine 03/19/15 pancultured pt ID consulted and following. On meropenem, vancomycin per ID. Micafungin stopped 06/18. Repeat blood cultures UA and urine culture. Added fluconazole 400 mg IV daily on 06/20 ct abd/ pelvis with IV contrast: 06/18/15 Conclusion: 1. Chronic nonspecific urinary bladder wall thickening. Bladder collapsed with Putnam catheter in place. 2.Chronic bilateral mid to lower zone groundglass opacity. 3. Nonobstructing left renal calculus. 4. Distended rectum Endo: fingersticks and sliding scale coverage DVT prof: scd and lovenox ordered GI prof: protonix wound care for stage 2 6x2 cm sacral wound critical care time 35 min nonprocedural time Jules Moss MD June 21, 2015 11:04
[2015-06-21] MEDS: FLUCONAZOLE 400 MG PREMIX BAG 200 ML IV SCH (13:18)
[2015-06-21] MEDS: ENOXAPARIN SODIUM 30 MG/0.3 ML SYRINGE SQ SCH (20:37)
[2015-06-21] MEDS: OLANZapine 2.5 MG TAB GT SCH (20:37)
[2015-06-21] MEDS: VANCOMYCIN INJ 1,250 MG in SODIUM CHLOR 0.9% 250 ML INJ 250 ML IV SCH (21:04)
[2015-06-21] MEDS: CHLORHEXIDINE GLUCONATE 2 % 1 PACK (2 CLOTHS) TOP SCH (23:08)
[2015-06-22] VITALS (20 sets, daily range): BP systolic 97–163; BP diastolic 64–94; PULSE 67–106; RESP 13–36; TEMP 97.9–99.6; O2SAT 99–100
[2015-06-22] MEDS: RESP: ALBUTEROL 2.5 MG/IPRATROPIUM 0.5 MG NEB (SCH) INH ×5 (03:08→20:04)
[2015-06-22] MEDS: SODIUM CHLOR 0.9% 1000 ML INJ 1,000 ML IV SCH ×3 (03:56→23:11)
[2015-06-22] MEDS: INSULIN NovoLIN REGULAR SUPPLEMENTAL SCALE SQ SCH ×4 (04:27→23:55)
[2015-06-22] MEDS: MEROPENEM INJ 500 MG in SODIUM CHLORIDE 0.9% INJ 100 ML IV SCH ×3 (04:27→23:28)
[2015-06-22] MEDS: CARBIDOPA/LEVODOPA 25 MG/100 MG TAB GT SCH ×3 (04:28→22:50)
[2015-06-22 07:12] LABS: AUTOMATED NEUTROPHIL # 5.9 TH/MM3 (1.8-7.7); BASOPHIL % 0.3 % (0.0-2.0); EOSINOPHIL # 0.3 TH/MM3 (0-0.4); EOSINOPHIL % 3.9 % (0.0-4.0); HEMO FLAGS DIFF FINAL; LYMPH % 16.3 % (9.0-44.0); LYMPHOCYTE # 1.3 TH/MM3 (1.0-4.8); MEAN CELL VOLUME 91.4 FL (80.0-100.0); MEAN CORPUSCULAR HEMOGLOBIN 29.7 PG (27.0-34.0); MEAN CORPUSCULAR HGB CONC 32.5 % (32.0-36.0); MONO % 6.1 % (0.0-8.0); NEUT % 73.4 % (16.0-70.0); PLATELET COUNT 192 TH/MM3 (150-450); RED CELL DISTRIBUTION WIDTH 13.4 % (11.6-17.2)
[2015-06-22] MEDS: GABAPENTIN 300 MG CAP G-TUBE SCH ×2 (07:27→22:50)
[2015-06-22] MEDS: VANCOMYCIN INJ 1,250 MG in SODIUM CHLOR 0.9% 250 ML INJ 250 ML IV SCH (07:27)
[2015-06-22] MEDS: MIDODRINE 5 MG TAB G-TUBE SCH ×2 (07:27→22:50)
[2015-06-22] MEDS: PANTOPRAZOLE SODIUM 40 MG VIAL IV SCH (07:28)
[2015-06-22] MEDS: QUEtiapine FUMARATE 25 MG TAB G-TUBE SCH (07:28)
[2015-06-22] MEDS: PARoxetine HCL 20 MG TAB G-TUBE SCH (07:28)
[2015-06-22] MEDS: LACTOBACILLUS ACIDOPHILUS TAB PO SCH ×3 (07:28→17:52)
[2015-06-22] MEDS: MORPHINE SULFATE ORAL SOLN 10 MG/0.5 ML SYRINGE PO PRN ×2 (07:29→23:55)
[2015-06-22] MEDS: CHLORHEXIDINE 0.12% (ORAL KIT) 15 ML CUP MT SCH ×2 (07:30→23:28)
[2015-06-22] MEDS: SODIUM CHLORIDE 0.9% FLUSH 5 ML FLUSH IVF SCH ×2 (07:31→22:50)
[2015-06-22 07:39] LABS: ALKALINE PHOSPHATASE 53 U/L (45-117); ALT (GPT) 10 U/L (12-78); ANION GAP 2 MEQ/L (5-15); AST (GOT) 14 U/L (15-37); BICARBONATE 32.2 MEQ/L (21.0-32.0); BLOOD UREA NITROGEN 5 MG/DL (7-18); CHLORIDE 105 MEQ/L (98-107); GLOMERULAR FILTRATION RATE 214 ML/MIN (>89); POTASSIUM 4.2 MEQ/L (3.5-5.1); SODIUM (NA) 139 MEQ/L (136-145); TOTAL BILIRUBIN ADULT 0.3 MG/DL (0.2-1.0)
[2015-06-22] MEDS: ARTIFICIAL TEARS OPTH SOLN 15 ML BTL EACH EYE SCH ×3 (09:00→17:52)
--- NOTE | 2015-06-22 10:43 | HHI.PR ---
Subjective Remarks Patient laying in bed nonverbal, open eyes to sternal rub, doesn't answer question Ongoing C-peptide trial for weaning ventilation Discussed with respiratory the nurse Objective Vitals Vital Signs Date Time Temp Pulse Resp B/P Pulse Ox O2 Delivery O2 Flow Rate FiO2 06/22/15 10:05 100 35 06/22/15 10:05 35 06/22/15 07:40 100 35 06/22/15 06:00 92 06/22/15 04:24 100 35 06/22/15 04:00 71 06/22/15 04:00 97.9 71 13 109/73 100 06/22/15 02:00 67 06/22/15 01:03 100 35 06/22/15 00:00 79 06/22/15 00:00 98.7 79 15 98/69 100 06/21/15 22:10 100 35 06/21/15 22:00 86 06/21/15 20:09 100 35 06/21/15 20:00 93 06/21/15 20:00 98.7 93 20 126/83 100 06/21/15 19:40 100 T-piece 5.00 40 06/21/15 18:00 65 06/21/15 16:00 79 06/21/15 16:00 98.2 79 21 93/60 100 06/21/15 14:00 88 06/21/15 12:00 87 06/21/15 12:00 98.6 87 24 125/81 100 06/21/15 11:38 100 35 I/O 06/21/15 06/21/15 06/21/15 06/22/15 06/22/15 06/22/15 07:00 15:00 23:00 07:00 15:00 23:00 Intake Total 1238 ml 2774 ml 1261 ml 1280 ml Output Total 450 ml 1400 ml 900 ml 550 ml Balance 788 ml 1374 ml 361 ml 730 ml IV Total 890 ml 1977 ml 963 ml 952 ml Tube Feeding 348 ml 737 ml 298 ml 328 ml Other 60 ml Output Urine Total 450 ml 1400 ml 900 ml 550 ml # Bowel Movements 0 Result Diagram: 06/22/15 0540 06/22/15 0540 Other Results Microbiology Date/Time Procedure Status Source Growth 06/21/15 12:20 Aerobic Blood Culture Received Blood Peripheral Pending 06/21/15 12:20 Anaerobic Blood Culture Received Blood Peripheral Pending 06/18/15 18:20 Aerobic Blood Culture - Preliminary Resulted Blood Peripheral Gram Positive Cocci 06/18/15 18:20 Anaerobic Blood Culture - Final Resulted Staphylococcus Epidermidis 06/18/15 18:00 Gram Stain - Final Complete Sputum Endotracheal 06/18/15 18:00 Sputum Culture - Final Complete Klebsiella Pneumoniae Esbl Pos Pseudomonas Aeruginosa 06/18/15 17:32 Urine Culture - Final Complete Urine Catheterized Urine Heena Tropicalis Heena Glabrata Imaging Last Impressions Chest X-Ray 06/20/15 0600 Signed Impressions: Service Date/Time: Saturday, June 20, 2015 04:18 - CONCLUSION: No acute cardiopulmonary disease. Eugene Schmid MD Head CT 06/18/151902 Signed Impressions: Service Date/Time: June 19:31 - CONCLUSION: Diffuse atrophy unchanged. No acute intracranial findings. Kush Briscoe MD Abdomen/Pelvis CT 06/18/151902 Signed Impressions: Service Date/Time: June 19:36 - CONCLUSION: 1. Chronic nonspecific urinary bladder wall thickening. Bladder collapsed with Putnam catheter in place. 2. Chronic bilateral mid to lower lung zone groundglass opacity. 3. Nonobstructing left renal calculus. 4. Distended rectum. Kush Briscoe MD Objective Remarks GENERAL: Cachectic, contracted patient, drowsy in no apparent distress. CARDIOVASCULAR: Regular rate and rhythm without murmurs, gallops, or rubs. RESPIRATORY: Chronic LDL ventilation, positive rhonchi bilaterally. Few wheezes GASTROINTESTINAL: Abdomen soft, non-tender, nondistended. Normal active bowel sounds PEG tube in place MUSCULOSKELETAL: Lower extremity in crossover contraction fixed discission, fairly positive pedal pulses,. 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 Contamination History of chronic colonization with MRSA S/P tracheostomy S/P PEG tube Stage II sacral the conus ulcer on admission Mild Malnutrition prealbumin 13, alb 2.9 DVT GI prophylaxis Plane: Will consult print shop chief clerk for vent management Discussed with pier master Dr. Carr Discussed with respiratory, patient now on C-pap trial Continue vancomycin and meropenem per ID recommendation target trough 15-20 for pneumonia Patient status post micafungin stop by ID Monitor electrolytes and replace All previous record from ICU reviewed, chest x-ray reviewed as well as cultures Continue C Pap trial effort for extubation Monitor blood pressure, continue rehydration Continue Zyprexa, paroxetine, Seroquel, Sinemet for agitation and dementia morphine by mouth, gabapentin, for pain management Potassium and magnesium replacement protocol Follow recyclable materials sorter recommendation for malnutrition Lovenox 30 mg for DVT prophylaxis Protonix per PEG tube for GI proph Jb Ervin MD June 22, 2015 10:43
[2015-06-22] MEDS: FLUCONAZOLE 400 MG PREMIX BAG 200 ML IV SCH (13:47)
--- NOTE | 2015-06-22 16:57 | HHI.IDPN ---
Subjective Subjective Remarks Mr. Foreman is a 54-year-old male with past medical history significant for Parkinson's disease, advanced dementia, hyponatremia, history of ESBL UTI. Admitted with sepsis. Now with Pneumonia, UTI and staph bacteremia Overnight events reviewed UO good. No change in mentation. Not on pressors. Remains on vent/trach. No diarrhea Antibiotics Meropenem IV Vanco IV Diflucan 400 mg IV for C.glabrata Lines Line sites with no e/o infection Past Medical History reviewed Allergies: Coded Allergies: *MDRO Multi-Drug Resistant Organism (Verified Adverse Reaction, Unknown, ) ESBL E. coli (urine) - 02/19/2015; ESBL+KLebsiella Pneumoniae (sputum) 06/2015 MRSA PCR positive - 03/20/2015 Objective . Vital Signs Date Time Temp Pulse Resp B/P Pulse Ox O2 Delivery O2 Flow Rate FiO2 06/22/15 14:00 81 06/22/15 12:00 98.3 75 24 97/64 99 06/22/15 12:00 75 06/22/15 11:44 100 T-piece 40 06/22/15 10:05 100 35 06/22/15 10:05 35 06/22/15 10:00 83 06/22/15 08:00 98.7 106 36 157/94 100 06/22/15 08:00 99 06/22/15 07:40 100 35 06/22/15 06:00 92 06/22/15 04:24 100 35 06/22/15 04:00 71 06/22/15 04:00 97.9 71 13 109/73 100 06/22/15 02:00 67 06/22/15 01:03 100 35 06/22/15 00:00 79 06/22/15 00:00 98.7 79 15 98/69 100 06/21/15 22:10 100 35 06/21/15 22:00 86 06/21/15 20:09 100 35 06/21/15 20:00 93 06/21/15 20:00 98.7 93 20 126/83 100 06/21/15 19:40 100 T-piece 5.00 40 06/21/15 18:00 65 06/21/15 06/21/15 06/22/15 15:00 23:00 07:00 Intake Total 2774 ml 1261 ml 1280 ml Output Total 1400 ml 900 ml 550 ml Balance 1374 ml 361 ml 730 ml IV Total 1977 ml 963 ml 952 ml Tube Feeding 737 ml 298 ml 328 ml Other 60 ml Output Urine Total 1400 ml 900 ml 550 ml # Bowel Movements 0 . Laboratory Tests Test 06/21/15 06/22/15 03:37 05:40 White Blood Count 7.8 TH/MM3 8.0 TH/MM3 Red Blood Count 2.99 MIL/MM3 3.50 MIL/MM3 Hemoglobin 9.1 GM/DL 10.4 GM/DL Hematocrit 27.4 % 32.0 % Mean Corpuscular Volume 91.5 FL 91.4 FL Mean Corpuscular Hemoglobin 30.5 PG 29.7 PG Mean Corpuscular Hemoglobin 33.3 % 32.5 % Concent Red Cell Distribution Width 13.2 % 13.4 % Platelet Count 164 TH/MM3 192 TH/MM3 Mean Platelet Volume 10.4 FL 10.3 FL Neutrophils (%) (Auto) 73.7 % 73.4 % Lymphocytes (%) (Auto) 15.2 % 16.3 % Monocytes (%) (Auto) 7.3 % 6.1 % Eosinophils (%) (Auto) 3.4 % 3.9 % Basophils (%) (Auto) 0.4 % 0.3 % Neutrophils # (Auto) 5.8 TH/MM3 5.9 TH/MM3 Lymphocytes # (Auto) 1.2 TH/MM3 1.3 TH/MM3 Monocytes # (Auto) 0.6 TH/MM3 0.5 TH/MM3 Eosinophils # (Auto) 0.3 TH/MM3 0.3 TH/MM3 Basophils # (Auto) 0.0 TH/MM3 0.0 TH/MM3 CBC Comment DIFF FINAL DIFF FINAL Differential Comment Laboratory Tests Test 06/21/15 06/22/15 03:51 05:40 Sodium Level 143 MEQ/L 139 MEQ/L Potassium Level 3.1 MEQ/L 4.2 MEQ/L Chloride Level 109 MEQ/L 105 MEQ/L Carbon Dioxide Level 26.5 MEQ/L 32.2 MEQ/L Anion Gap 8 MEQ/L 2 MEQ/L Blood Urea Nitrogen 5 MG/DL 5 MG/DL Creatinine 0.50 MG/DL 0.42 MG/DL Estimat Glomerular Filtration 175 ML/MIN 214 ML/MIN Rate Random Glucose 84 MG/DL 91 MG/DL Calcium Level 9.1 MG/DL 9.3 MG/DL Total Bilirubin 0.4 MG/DL 0.3 MG/DL Aspartate Amino Transf 13 U/L 14 U/L (AST/SGOT) Alanine Aminotransferase 14 U/L 10 U/L (ALT/SGPT) Alkaline Phosphatase 47 U/L 53 U/L Total Protein 6.2 GM/DL 6.9 GM/DL Albumin 2.5 GM/DL 2.9 GM/DL Microbiology Date/Time Procedure Status Source Growth 06/21/15 12:14 Aerobic Blood Culture - Preliminary Resulted Blood Peripheral NO GROWTH IN 1 DAY 06/21/15 12:14 Anaerobic Blood Culture - Preliminary Resulted Blood Peripheral NO GROWTH IN 1 DAY 06/21/15 12:20 Aerobic Blood Culture - Preliminary Resulted Blood Peripheral NO GROWTH IN 1 DAY 06/21/15 12:20 Anaerobic Blood Culture - Preliminary Resulted Blood Peripheral NO GROWTH IN 1 DAY Imaging Last Impressions Chest X-Ray 06/20/15 0600 Signed Impressions: Service Date/Time: Saturday, June 20, 2015 04:18 - CONCLUSION: No acute cardiopulmonary disease. Eugene Schmid MD Head CT 06/18/151902 Signed Impressions: Service Date/Time: June 19:31 - CONCLUSION: Diffuse atrophy unchanged. No acute intracranial findings. Kush Briscoe MD Abdomen/Pelvis CT 06/18/151902 Signed Impressions: Service Date/Time: June 19:36 - CONCLUSION: 1. Chronic nonspecific urinary bladder wall thickening. Bladder collapsed with Putnam catheter in place. 2. Chronic bilateral mid to lower lung zone groundglass opacity. 3. Nonobstructing left renal calculus. 4. Distended rectum. Kush Briscoe MD Physical Exam GENERAL: Chronically ill-appearing, aphasic, not in acute distress. Cachectic with not much body fat. SKIN: No generalized rashes, ecchymoses or lesions. Cool and dry. HEAD: Atraumatic. Normocephalic. No temporal or scalp tenderness. EYES: Pupils equal round and reactive. ENT: Grossly nothing abnormal detected. Trach site with no evidence of infection. NECK: No lymphadenopathy. Supple, nontender, no meningeal signs. CARDIOVASCULAR: No murmur appreciated. RESPIRATORY: Clear to auscultation. Breath sounds equal bilaterally with decrease in the bases. GASTROINTESTINAL: Abdomen soft, non-tender, nondistended. PEG tube site with no evidence of infection. MUSCULOSKELETAL: Increased tone in all extremities. Rigidity noted. NEUROLOGICAL: Opens eyes spontaneously. No verbal response does not follow commands. Psych could not be assessed IV line sites with no evidence of infection. No lines present on admission. Assessment & Plan Remarks Sepsis present on admission. Possible acute tracheobronchitis. Chest x-ray is negative except for some chronic ground glass opacities. Acute on chronic respiratory failure was on trach and had to be placed on ventilator. Acute encephalopathy sepsis but has an underlying diagnosis of advanced dementia as well as advanced Parkinson's disease. Sputum with gram-negative rods identification pending\ Prior history of ESBL UTI Prior history of MRSA colonization. Status post trach Status post gastrostomy tube with no evidence of infection. Stage II sacral decubitus ulcer present on admission. Recommendations Continue meropenem IV ESBL for tracheobronchitis short course x 5 days. Start Tobra nebs. DC Vanco IV likely contaminant. Continue Diflucan IV at high dose for C.glabrata. Will likely switch to oral in am once GI residuals determined. Follow blood cultures Follow sputum cultures to adjust regimen. Case discussed with RN. Trina Moss MD June 22, 2015 16:57
[2015-06-22] MEDS: RESP: TOBRAMYCIN SULFATE 80 MG/2 ML NEB NEB SCH (20:04)
[2015-06-22] MEDS: OLANZapine 2.5 MG TAB GT SCH (22:50)
[2015-06-22] MEDS: ENOXAPARIN SODIUM 30 MG/0.3 ML SYRINGE SQ SCH (22:51)
[2015-06-23] VITALS (21 sets, daily range): BP systolic 111–157; BP diastolic 72–98; PULSE 63–98; RESP 18–26; TEMP 97.4–98.8; O2SAT 98–100
[2015-06-23] MEDS: MEROPENEM INJ 500 MG in SODIUM CHLORIDE 0.9% INJ 100 ML IV SCH (05:48)
[2015-06-23] MEDS: INSULIN NovoLIN REGULAR SUPPLEMENTAL SCALE SQ SCH ×4 (05:48→23:48)
[2015-06-23] MEDS: CARBIDOPA/LEVODOPA 25 MG/100 MG TAB GT SCH ×3 (05:48→20:49)
[2015-06-23] MEDS: SODIUM CHLOR 0.9% 1000 ML INJ 1,000 ML IV SCH ×3 (05:50→20:46)
--- NOTE | 2015-06-23 06:20 | MB ---
cc: MYNOR ESPARZA MD DATE OF CONSULTATION 06/22/[address] Ervin REASON FOR CONSULTATION Ventilator management HISTORY OF PRESENT ILLNESS The Ahsan is a 54 year-old male with a history of Parkinson's disease, advanced dementia. He has chronic respiratory failure and has tracheostomy tube in place. He was brought from the longterm with decrease in his mentation. He was found to have a UTI. The patient was admitted to the intensive care unit. He is on a ventilator. He has blood cultures showing staph epi, urine shows Heena tropicalis. Sputum shows Klebsiella pneumoniae. The patient was seen by Dr. Moss and he is on antibiotics. Meropenem, Diflucan and Topamax nebulizer treatment. CBC showed a WBC count of 8.0, hemoglobin 10.4, hematocrit 32, MCV 91, platelet count 192. Sodium 139, potassium 4.2, chloride 105, CO2 32, BUN 5, creatinine 0.42. His blood gas on FIO2 35%, assist control 14 shows pH 7.40, pCO2 37, pO2 157. Currently he is on C-PAP 15/5, FIO2 35%. His chest x-ray shows no acute infiltrates. PAST MEDICAL HISTORY Significant for a history of: 1. Parkinson's disease 2. Advanced dementia 3. Hyponatremia 4. Multiple UTI's 5. Chronic respiratory failure, he has trache MEDICATIONS He is currently takin. Tobramycin 18 mg nebulizer treatment q12h 2. Diflucan q24h 3. Morphine for pain 4. Zyprexa 2.5 mg a day 5. Protonix 40 mg a day 6. Neurontin 3 mg twice a day 7. Midodrine 2.5 mg twice a day 8. Paxil 20 mg a day 9. Pravachol 12.5 mg a day 10. Sinemet 25/100 one tablet every 8 hour 11. Albuterol/Atrovent nebulizer treatment 12. Lovenox 30 mg a day 13. Meropenem 500 mg q8h ALLERGIES NO KNOWN DRUG ALLERGIES. SOCIAL HISTORY/FAMILY HISTORY Not available. PHYSICAL EXAMINATION This is a well-nourished male who opens his eyes. Does not follow commands. VITAL SIGNS: His blood pressure is 163/91, heart rate 91, respiration 18, temperature 99.1. HEENT: Pupils are equal and reactive to light. He has trache in place. CHEST: Air equal bilaterally. He has no rales. CARDIOVASCULAR: S1 and S2 is normal. ABDOMEN: Soft, nondistended. He has a PEG tube in place. EXTREMITIES: No edema. IMPRESSION 1. Respiratory failure, ventilator dependent 2. Sepsis 3. UTI 4. Tracheobronchitis 5. Parkinson's disease 6. Dementia PLAN We will continue ventilator support. He is currently on C-PAP 20/06 and is tolerating it well. Continue present antibiotic Mereopenem, Diflucan and Tobramycin nebulizer treatment as per ID recommendation. Continue aerosol treatment. We will wean from the ventilator as he tolerates. Continue tube feeding. Further treatment dependent on the course in the hospital. Thank you, Dr. Ervin for this consult. MD VERONICA Avila/INEZ /6:34 PM /6:05 AM
[2015-06-23] MEDS: CHLORHEXIDINE GLUCONATE 2 % 1 PACK (2 CLOTHS) TOP SCH ×2 (06:41→20:47)
[2015-06-23] MEDS: RESP: TOBRAMYCIN SULFATE 80 MG/2 ML NEB NEB SCH ×2 (07:50→20:16)
[2015-06-23] MEDS: PANTOPRAZOLE SODIUM 40 MG VIAL IV SCH (08:31)
[2015-06-23] MEDS: QUEtiapine FUMARATE 25 MG TAB G-TUBE SCH (08:31)
[2015-06-23] MEDS: GABAPENTIN 300 MG CAP G-TUBE SCH ×2 (08:31→20:46)
[2015-06-23] MEDS: LACTOBACILLUS ACIDOPHILUS TAB PO SCH ×3 (08:31→18:30)
[2015-06-23] MEDS: MIDODRINE 5 MG TAB G-TUBE SCH ×2 (08:32→20:47)
[2015-06-23] MEDS: SODIUM CHLORIDE 0.9% FLUSH 5 ML FLUSH IVF SCH ×2 (08:32→20:46)
[2015-06-23] MEDS: PARoxetine HCL 20 MG TAB G-TUBE SCH (08:32)
[2015-06-23] MEDS: ARTIFICIAL TEARS OPTH SOLN 15 ML BTL EACH EYE SCH ×3 (08:32→18:30)
[2015-06-23] MEDS: CHLORHEXIDINE 0.12% (ORAL KIT) 15 ML CUP MT SCH ×2 (08:32→20:45)
[2015-06-23] MEDS ORDERED: PHARMACY ORDERED LAB XX ONE (08:45)
[2015-06-23] MEDS ORDERED: FLUCONAZOLE 200 MG TAB PEG SCH (09:00)
--- NOTE | 2015-06-23 11:02 | HHI.PR ---
Subjective Remarks Laying in bed open eyes, lower extremity crossed, does not follow command, on C Pap, pulmonology following No fever, on tube feed Objective Vitals Vital Signs Date Time Temp Pulse Resp B/P Pulse Ox O2 Delivery O2 Flow Rate FiO2 06/23/15 07:54 100 35 06/23/15 06:00 72 06/23/15 04:13 100 35 06/23/15 04:00 73 06/23/15 04:00 97.4 73 22 131/86 100 06/23/15 02:00 74 06/23/15 01:32 100 35 06/23/15 00:55 25 06/23/15 00:00 98 06/23/15 00:00 97.6 98 25 152/98 100 06/22/15 22:00 87 06/22/15 20:10 100 35 06/22/15 20:00 82 06/22/15 20:00 99.6 82 33 123/84 100 06/22/15 19:00 91 06/22/15 18:00 92 06/22/15 17:31 100 35 06/22/15 16:00 99.1 91 20 163/91 100 06/22/15 16:00 91 06/22/15 14:00 81 06/22/15 12:00 98.3 75 24 97/64 99 06/22/15 12:00 75 06/22/15 11:44 100 T-piece 40 I/O 06/22/15 06/22/15 06/22/15 06/23/15 06/23/15 06/23/15 07:00 15:00 23:00 07:00 15:00 23:00 Intake Total 1280 ml 2074 ml 1897 ml 1455 ml Output Total 550 ml 1550 ml 1500 ml 1200 ml Balance 730 ml 524 ml 397 ml 255 ml IV Total 952 ml 1353 ml 1193 ml 951 ml Tube Feeding 328 ml 601 ml 604 ml 444 ml Other 120 ml 100 ml 60 ml Output Urine Total 550 ml 1550 ml 1500 ml 1200 ml Result Diagram: 06/22/15 0540 06/22/15 0540 Imaging Last Impressions Chest X-Ray 06/20/15 0600 Signed Impressions: Service Date/Time: Saturday, June 20, 2015 04:18 - CONCLUSION: No acute cardiopulmonary disease. K. Blaine Schmid MD Head CT 06/18/151902 Signed Impressions: Service Date/Time: June 19:31 - CONCLUSION: Diffuse atrophy unchanged. No acute intracranial findings. Kush Briscoe MD Abdomen/Pelvis CT 06/18/151902 Signed Impressions: Service Date/Time: June 19:36 - CONCLUSION: 1. Chronic nonspecific urinary bladder wall thickening. Bladder collapsed with Putnam catheter in place. 2. Chronic bilateral mid to lower lung zone groundglass opacity. 3. Nonobstructing left renal calculus. 4. Distended rectum. Kush Briscoe MD Objective Remarks GENERAL: Cachectic, contracted patient, drowsy in no apparent distress. CARDIOVASCULAR: Regular rate and rhythm without murmurs, gallops, or rubs. RESPIRATORY: Chronic LDL ventilation, positive rhonchi bilaterally. Few wheezes GASTROINTESTINAL: Abdomen soft, non-tender, nondistended. Normal active bowel sounds PEG tube in place MUSCULOSKELETAL: Lower extremity in crossover contraction fixed discission, fairly positive pedal pulses,. NEURO: Open eyes, doesn't follow commands, spontaneous movement of upper or lower extremity, doesn't answer question A/P Assessment and Plan 55 years old male with tracheostomy and PEG tube long term resident admitted for: Severe sepsis improved Lactic acidosis improved Acute on chronic respiratory failure on mechanical vent, weaning process ongoing Possible tracheobronchitis, groundglass opacity on chest x-ray, chest x-ray reviewed by me Multiple resistant organism infection Chronic nonspecific urinary bladder wall thickening Putnam catheter in place Chronic dementia, encephalopathy, Parkinson disease UTI with ESBL Blood culture positive staph epidermidis in 1 tube,? Contamination History of chronic colonization with MRSA S/P tracheostomy S/P PEG tube Stage II sacral the conus ulcer on admission Mild Malnutrition prealbumin 13, alb 2.9 DVT GI prophylaxis Plane: Appreciate pulmonology consult for for vent management Continue weaning effort currently on Cpap Stop vancomycin, dc meropenem 06/22, started tobramycin nebulizer as per ID Patient status post micafungin , change Diflucan to by mouth today Monitor for any fever Continue tube feeds, monitor lab/BMP Monitor electrolytes and replace All previous record from ICU reviewed, chest x-ray reviewed as well as cultures Monitor blood pressure, continue rehydration Continue Zyprexa, paroxetine, Seroquel, Sinemet for agitation and dementia morphine by mouth, gabapentin, for pain management Potassium and magnesium replacement protocol Follow director cardiology recommendation for malnutrition Lovenox 30 mg for DVT prophylaxis Protonix per PEG tube for GI proph Addendum: Discussed with Dr. browning, she cleared patient and signed off, we'll ask piano case maker for follow up and discuss with pulmonology on possibility of weaning ventilator here versus at the rehabilitation Jb Ervin MD June 23, 2015 11:02 Jb Ervin MD June 23, 2015 11:02
--- NOTE | 2015-06-23 11:42 | HHI.IDPN ---
Subjective Subjective Remarks Mr. Foreman is a 54-year-old male with past medical history significant for Parkinson's disease, advanced dementia, hyponatremia, history of ESBL UTI. Admitted with sepsis. Now with Pneumonia, UTI and staph bacteremia Overnight events reviewed UO good. No change in mentation. Not on pressors. Remains on vent/trach. Not much secretions. No diarrhea valdez new. Antibiotics Meropenem IV Diflucan 400 mg IV for C.glabrata Lines Line sites with no e/o infection Past Medical History reviewed Allergies: Coded Allergies: *MDRO Multi-Drug Resistant Organism (Verified Adverse Reaction, Unknown, ) ESBL E. coli (urine) - 02/19/2015; ESBL+KLebsiella Pneumoniae (sputum) 06/2015 MRSA PCR positive - 03/20/2015 Objective . Vital Signs Date Time Temp Pulse Resp B/P Pulse Ox O2 Delivery O2 Flow Rate FiO2 06/23/15 10:00 87 06/23/15 08:00 97.6 89 22 139/92 100 06/23/15 08:00 86 06/23/15 07:54 100 35 06/23/15 06:00 72 06/23/15 04:13 100 35 06/23/15 04:00 73 06/23/15 04:00 97.4 73 22 131/86 100 06/23/15 02:00 74 06/23/15 01:32 100 35 06/23/15 00:55 25 06/23/15 00:00 98 06/23/15 00:00 97.6 98 25 152/98 100 06/22/15 22:00 87 06/22/15 20:10 100 35 06/22/15 20:00 82 06/22/15 20:00 99.6 82 33 123/84 100 06/22/15 19:00 91 06/22/15 18:00 92 06/22/15 17:31 100 35 06/22/15 16:00 99.1 91 20 163/91 100 06/22/15 16:00 91 06/22/15 14:00 81 06/22/15 12:00 98.3 75 24 97/64 99 06/22/15 12:00 75 06/22/15 11:44 100 T-piece 40 5/16/16 5/16/16 5/17/16 15:00 23:00 07:00 Intake Total 2074 ml 1897 ml 1455 ml Output Total 1550 ml 1500 ml 1200 ml Balance 524 ml 397 ml 255 ml IV Total 1353 ml 1193 ml 951 ml Tube Feeding 601 ml 604 ml 444 ml Other 120 ml 100 ml 60 ml Output Urine Total 1550 ml 1500 ml 1200 ml . Laboratory Tests Test 06/22/15 05:40 White Blood Count 8.0 TH/MM3 Red Blood Count 3.50 MIL/MM3 Hemoglobin 10.4 GM/DL Hematocrit 32.0 % Mean Corpuscular Volume 91.4 FL Mean Corpuscular Hemoglobin 29.7 PG Mean Corpuscular Hemoglobin 32.5 % Concent Red Cell Distribution Width 13.4 % Platelet Count 192 TH/MM3 Mean Platelet Volume 10.3 FL Neutrophils (%) (Auto) 73.4 % Lymphocytes (%) (Auto) 16.3 % Monocytes (%) (Auto) 6.1 % Eosinophils (%) (Auto) 3.9 % Basophils (%) (Auto) 0.3 % Neutrophils # (Auto) 5.9 TH/MM3 Lymphocytes # (Auto) 1.3 TH/MM3 Monocytes # (Auto) 0.5 TH/MM3 Eosinophils # (Auto) 0.3 TH/MM3 Basophils # (Auto) 0.0 TH/MM3 CBC Comment DIFF FINAL Differential Comment Laboratory Tests Test 06/22/15 05:40 Sodium Level 139 MEQ/L Potassium Level 4.2 MEQ/L Chloride Level 105 MEQ/L Carbon Dioxide Level 32.2 MEQ/L Anion Gap 2 MEQ/L Blood Urea Nitrogen 5 MG/DL Creatinine 0.42 MG/DL Estimat Glomerular Filtration 214 ML/MIN Rate Random Glucose 91 MG/DL Calcium Level 9.3 MG/DL Total Bilirubin 0.3 MG/DL Aspartate Amino Transf 14 U/L (AST/SGOT) Alanine Aminotransferase 10 U/L (ALT/SGPT) Alkaline Phosphatase 53 U/L Total Protein 6.9 GM/DL Albumin 2.9 GM/DL Microbiology Date/Time Procedure Status Source Growth 06/21/15 12:14 Aerobic Blood Culture - Preliminary Resulted Blood Peripheral NO GROWTH IN 2 DAYS 06/21/15 12:14 Anaerobic Blood Culture - Preliminary Resulted Blood Peripheral NO GROWTH IN 2 DAYS 06/21/15 12:20 Aerobic Blood Culture - Preliminary Resulted Blood Peripheral NO GROWTH IN 2 DAYS 5/15/16 12:20 Anaerobic Blood Culture - Preliminary Resulted Blood Peripheral NO GROWTH IN 2 DAYS Imaging Last Impressions Chest X-Ray 06/20/15 0600 Signed Impressions: Service Date/Time: Saturday, June 20, 2015 04:18 - CONCLUSION: No acute cardiopulmonary disease. Eugene Schmid MD Head CT 06/18/151902 Signed Impressions: Service Date/Time: , June 18, 2015 19:31 - CONCLUSION: Diffuse atrophy unchanged. No acute intracranial findings. Kush Briscoe MD Abdomen/Pelvis CT 06/18/151902 Signed Impressions: Service Date/Time: , June 18, 2015 19:36 - CONCLUSION: 1. Chronic nonspecific urinary bladder wall thickening. Bladder collapsed with Valdez catheter in place. 2. Chronic bilateral mid to lower lung zone groundglass opacity. 3. Nonobstructing left renal calculus. 4. Distended rectum. Kush Briscoe MD Physical Exam GENERAL: Chronically ill-appearing, aphasic, not in acute distress. Cachectic with not much body fat. SKIN: No generalized rashes, ecchymoses or lesions. Cool and dry. HEAD: Atraumatic. Normocephalic. No temporal or scalp tenderness. EYES: Pupils equal round and reactive. ENT: Grossly nothing abnormal detected. Trach site with no evidence of infection. NECK: No lymphadenopathy. Supple, nontender, no meningeal signs. CARDIOVASCULAR: No murmur appreciated. RESPIRATORY: Clear to auscultation. Breath sounds equal bilaterally with decrease in the bases. GASTROINTESTINAL: Abdomen soft, non-tender, nondistended. PEG tube site with no evidence of infection. MUSCULOSKELETAL: Increased tone in all extremities. Rigidity noted. NEUROLOGICAL: Opens eyes spontaneously. No verbal response does not follow commands. Psych could not be assessed IV line sites with no evidence of infection. No lines present on admission. Assessment & Plan Remarks Sepsis present on admission resolved. Possible acute tracheobronchitis. ESBL Kleb pneumo and PSAE. Chest x-ray is negative except for some chronic ground glass opacities. Acute on chronic respiratory failure was on trach and had to be placed on ventilator. Acute encephalopathy sepsis but has an underlying diagnosis of advanced dementia as well as advanced Parkinson's disease. Prior history of ESBL UTI Prior history of MRSA colonization. Status post trach Status post gastrostomy tube with no evidence of infection. Stage II sacral decubitus ulcer present on admission. Recommendations DC meropenem. Continue Tobra nebs for total of 15 days. Continue Diflucan changed to oral at high dose for C.glabrata stop date entered. Once all cultures finalized and negative and patient afebrile Follow blood cultures Follow sputum cultures to adjust regimen. Case discussed with RN. Will sign off please call back if any change in clinical condition or questions. to cover for me till 06/28/2015. Trina Moss MD June 23, 2015 11:41
[2015-06-23] MEDS: FLUCONAZOLE 200 MG TAB PEG SCH (15:18)
[2015-06-23] MEDS: RESP: ALBUTEROL 2.5 MG/3 ML NEB (PRN) INH (20:15)
--- NOTE | 2015-06-23 20:16 | HHI.PR ---
Subjective Remarks 54 YOWM with ChRF,Trach, multiple uti On Vent No fever Opens eyes, follows commands Objective Vital Signs Vital Signs Date Time Temp Pulse Resp B/P Pulse Ox O2 Delivery O2 Flow Rate FiO2 06/23/15 19:16 87 06/23/15 18:00 84 06/23/15 17:51 98 Ventilator 35 06/23/15 16:22 98 35 06/23/15 16:00 97.8 88 24 152/97 100 06/23/15 16:00 88 06/23/15 14:00 82 06/23/15 13:00 98 35 06/23/15 12:00 97.8 63 18 111/72 100 06/23/15 12:00 69 06/23/15 10:00 98 35 06/23/15 10:00 87 06/23/15 10:00 35 06/23/15 08:00 97.6 89 22 139/92 100 06/23/15 08:00 86 06/23/15 07:54 100 35 06/23/15 06:00 72 06/23/15 04:13 100 35 06/23/15 04:00 73 06/23/15 04:00 97.4 73 22 131/86 100 06/23/15 02:00 74 06/23/15 01:32 100 35 06/23/15 00:55 25 06/23/15 00:00 98 06/23/15 00:00 97.6 98 25 152/98 100 06/22/15 22:00 87 I/O 06/22/15 06/22/15 06/22/15 06/23/15 06/23/15 06/23/15 07:00 15:00 23:00 07:00 15:00 23:00 Intake Total 1280 ml 2074 ml 1897 ml 1455 ml 1785 ml Output Total 550 ml 1550 ml 1500 ml 1200 ml 1900 ml Balance 730 ml 524 ml 397 ml 255 ml -115 ml IV Total 952 ml 1353 ml 1193 ml 951 ml 1028 ml Tube Feeding 328 ml 601 ml 604 ml 444 ml 577 ml Other 120 ml 100 ml 60 ml 180 ml Output Urine Total 550 ml 1550 ml 1500 ml 1200 ml 1900 ml Result Diagram: 06/22/15 0540 06/22/15 0540 Objective Remarks GENERAL: MBMN male on Vent. SKIN: Warm and dry. HEAD: Normocephalic. EYES: No scleral icterus. No injection or drainage. NECK: Supple, trachea midline. No JVD or lymphadenopathy. has trach CARDIOVASCULAR: Regular rate and rhythm without murmurs, gallops, or rubs. RESPIRATORY: Breath sounds equal bilaterally. No accessory muscle use. GASTROINTESTINAL: Abdomen soft, non-tender, nondistended. PEG tube in place MUSCULOSKELETAL: No cyanosis, or edema. BACK: Nontender without obvious deformity. No CVA tenderness. A/P Assessment and Plan VDRF S/P Trach Parkinson's diasease Dementia UTI PLAN: Vent Support CPAP tral in AM ABX Josie Talley and Tobra Severiano Shukla MD June 23, 2015 20:16
[2015-06-23] MEDS: ENOXAPARIN SODIUM 30 MG/0.3 ML SYRINGE SQ SCH (20:46)
[2015-06-23] MEDS: OLANZapine 2.5 MG TAB GT SCH (20:47)
[2015-06-24] VITALS (19 sets, daily range): BP systolic 139–168; BP diastolic 83–100; PULSE 71–95; RESP 20–40; TEMP 97.9–98.6; O2SAT 99–100
[2015-06-24] MEDS: MORPHINE SULFATE ORAL SOLN 10 MG/0.5 ML SYRINGE PO PRN ×3 (01:31→20:48)
[2015-06-24] MEDS: INSULIN NovoLIN REGULAR SUPPLEMENTAL SCALE SQ SCH ×4 (06:00→23:50)
[2015-06-24] MEDS: CARBIDOPA/LEVODOPA 25 MG/100 MG TAB GT SCH ×3 (06:33→20:49)
[2015-06-24] MEDS: SODIUM CHLOR 0.9% 1000 ML INJ 1,000 ML IV SCH ×3 (06:35→20:49)
[2015-06-24] MEDS: RESP: TOBRAMYCIN SULFATE 80 MG/2 ML NEB NEB SCH ×2 (08:18→19:59)
[2015-06-24] MEDS ORDERED: FLUCONAZOLE 200 MG TAB PO SCH (09:00)
[2015-06-24] MEDS: LACTOBACILLUS ACIDOPHILUS TAB PO SCH ×3 (09:18→17:38)
[2015-06-24] MEDS: QUEtiapine FUMARATE 25 MG TAB G-TUBE SCH (09:18)
[2015-06-24] MEDS: PARoxetine HCL 20 MG TAB G-TUBE SCH (09:19)
[2015-06-24] MEDS: SODIUM CHLORIDE 0.9% FLUSH 5 ML FLUSH IVF PRN (09:19)
[2015-06-24] MEDS: PANTOPRAZOLE SODIUM 40 MG VIAL IV SCH (09:19)
[2015-06-24] MEDS: SODIUM CHLORIDE 0.9% FLUSH 5 ML FLUSH IVF SCH ×2 (09:19→20:49)
[2015-06-24] MEDS: MIDODRINE 5 MG TAB G-TUBE SCH ×3 (09:19→21:00)
[2015-06-24] MEDS: GABAPENTIN 300 MG CAP G-TUBE SCH ×2 (09:19→20:47)
[2015-06-24] MEDS: FLUCONAZOLE 200 MG TAB PEG SCH (09:19)
[2015-06-24] MEDS: ARTIFICIAL TEARS OPTH SOLN 15 ML BTL EACH EYE SCH ×3 (09:20→17:38)
[2015-06-24] MEDS: CHLORHEXIDINE 0.12% (ORAL KIT) 15 ML CUP MT SCH ×2 (09:20→20:50)
[2015-06-24 09:47] LABS: BICARBONATE 29.8 MEQ/L (21.0-32.0); POTASSIUM 3.7 MEQ/L (3.5-5.1)
--- NOTE | 2015-06-24 10:27 | HHI.PR ---
Subjective Remarks resting in bed , closed eyes d/w nurse , no acute issue still being in weaning process with cpap trial managed by , placed call for him to check if transfer to LTC is feasible at this point Objective Vitals Vital Signs Date Time Temp Pulse Resp B/P Pulse Ox O2 Delivery O2 Flow Rate FiO2 06/24/15 08:18 100 35 06/24/15 08:00 98.1 88 25 151/98 100 06/24/15 08:00 88 06/24/15 06:00 71 06/24/15 04:14 100 35 06/24/15 04:00 98.1 79 28 147/88 100 06/24/15 04:00 79 06/24/15 02:31 26 06/24/15 02:00 80 06/24/15 01:22 99 35 06/24/15 00:00 98.5 95 24 140/97 100 06/24/15 00:00 95 06/23/15 22:49 100 35 06/23/15 22:00 93 06/23/15 20:25 100 35 06/23/15 20:00 98.8 84 26 157/91 100 06/23/15 20:00 84 06/23/15 19:16 87 06/23/15 18:00 84 06/23/15 17:51 98 Ventilator 35 06/23/15 16:22 98 35 06/23/15 16:00 97.8 88 24 152/97 100 06/23/15 16:00 88 06/23/15 14:00 82 06/23/15 13:00 98 35 06/23/15 12:00 97.8 63 18 111/72 100 06/23/15 12:00 69 I/O 06/23/15 06/23/15 06/23/15 06/24/15 06/24/15 06/24/15 07:00 15:00 23:00 07:00 15:00 23:00 Intake Total 1455 ml 1785 ml 1913 ml 1087 ml Output Total 1200 ml 1900 ml 1350 ml 700 ml 0 ml Balance 255 ml -115 ml 563 ml 387 ml 0 ml IV Total 951 ml 1028 ml 1163 ml 682 ml Tube Feeding 444 ml 577 ml 570 ml 285 ml Other 60 ml 180 ml 180 ml 120 ml Output Urine Total 1200 ml 1900 ml 1350 ml 700 ml Tube Feeding Residual Discard 0 ml Result Diagram: 06/22/15 0540 06/24/15 0843 Objective Remarks GENERAL: Cachectic, contracted patient, drowsy in no apparent distress. CARDIOVASCULAR: Regular rate and rhythm without murmurs, gallops, or rubs. RESPIRATORY: positive rhonchi bilaterally. Few wheezes GASTROINTESTINAL: Abdomen soft, non-tender, nondistended. Normal active bowel sounds PEG tube in place MUSCULOSKELETAL: Lower extremity in crossover contraction fixed discission, fairly positive pedal pulses,. NEURO: somnolent , doesn't follow commands, spontaneous movement of upper or lower extremity, doesn't answer question A/P Assessment and Plan 55 years old male with tracheostomy and PEG tube [facility]ci resident admitted for: Severe sepsis improved Lactic acidosis improved Acute on chronic respiratory failure on mechanical vent, weaning process ongoing Possible tracheobronchitis, groundglass opacity on chest x-ray, chest x-ray reviewed by me Multiple resistant organism infection Chronic nonspecific urinary bladder wall thickening Putnam catheter in place Chronic dementia, encephalopathy, Parkinson disease UTI with ESBL Blood culture positive staph epidermidis in 1 tube,? Contamination History of chronic colonization with MRSA S/P tracheostomy S/P PEG tube Stage II sacral the conus ulcer on admission Mild Malnutrition prealbumin 13, alb 2.9 DVT GI prophylaxis Plane: Appreciate pulmonology consult for for vent management Continue weaning effort currently on Cpap s/p vancomycin, meropenem , on tobramycin nebulizer as per ID Patient status post micafungin , change Diflucan to by mouth today with end date by ID Monitor for any fever Continue tube feeds, monitor lab/BMP Monitor electrolytes and replace All previous record from ICU reviewed, chest x-ray reviewed as well as cultures Monitor blood pressure, continue rehydration Continue Zyprexa, paroxetine, Seroquel, Sinemet for agitation and dementia morphine by mouth, gabapentin, for pain management Potassium and magnesium replacement protocol Follow insurance sales producer recommendation for malnutrition Lovenox 30 mg for DVT prophylaxis Protonix per PEG tube for GI Addendum: cleared by ID , pulmonary ff for vent weaning , will d/w him regarding tx to LTC Discharge Planning to LTC when cleared by pulmonary Jb Ervin MD June 24, 2015 10:27
--- NOTE | 2015-06-24 18:31 | HHI.PR ---
Subjective Remarks 54 YOWM with ChRF,Trach, multiple uti On Vent No fever Opens eyes, follows commands Weaned to T-Tube Objective Vital Signs Vital Signs Date Time Temp Pulse Resp B/P Pulse Ox O2 Delivery O2 Flow Rate FiO2 06/24/15 18:00 85 06/24/15 16:00 98.3 83 20 139/83 100 06/24/15 16:00 83 06/24/15 15:10 100 33 06/24/15 14:00 87 06/24/15 12:00 97.9 92 31 158/100 100 06/24/15 12:00 92 06/24/15 11:16 100 35 06/24/15 10:00 89 06/24/15 08:18 100 35 06/24/15 08:00 98.1 88 25 151/98 100 06/24/15 08:00 88 06/24/15 06:00 71 06/24/15 04:14 100 35 06/24/15 04:00 98.1 79 28 147/88 100 06/24/15 04:00 79 06/24/15 02:31 26 06/24/15 02:00 80 06/24/15 01:22 99 35 06/24/15 00:00 98.5 95 24 140/97 100 06/24/15 00:00 95 06/23/15 22:49 100 35 06/23/15 22:00 93 06/23/15 20:25 100 35 06/23/15 20:00 98.8 84 26 157/91 100 06/23/15 20:00 84 06/23/15 19:16 87 I/O 06/23/15 06/23/15 06/23/15 06/24/15 06/24/15 06/24/15 07:00 15:00 23:00 07:00 15:00 23:00 Intake Total 1455 ml 1785 ml 1913 ml 1087 ml 1550 ml Output Total 1200 ml 1900 ml 1350 ml 700 ml 1450 ml Balance 255 ml -115 ml 563 ml 387 ml 100 ml IV Total 951 ml 1028 ml 1163 ml 682 ml 1000 ml Tube Feeding 444 ml 577 ml 570 ml 285 ml 490 ml Other 60 ml 180 ml 180 ml 120 ml 60 ml Output Urine Total 1200 ml 1900 ml 1350 ml 700 ml 1450 ml Tube Feeding Residual Discard 0 ml # Bowel Movements 1 Result Diagram: 06/22/15 0540 06/24/15 0843 Objective Remarks GENERAL: MBMN male on Vent. SKIN: Warm and dry. HEAD: Normocephalic. EYES: No scleral icterus. No injection or drainage. NECK: Supple, trachea midline. No JVD or lymphadenopathy. has trach CARDIOVASCULAR: Regular rate and rhythm without murmurs, gallops, or rubs. RESPIRATORY: Breath sounds equal bilaterally. No accessory muscle use. GASTROINTESTINAL: Abdomen soft, non-tender, nondistended. PEG tube in place MUSCULOSKELETAL: No cyanosis, or edema. BACK: Nontender without obvious deformity. No CVA tenderness. A/P Assessment and Plan VDRF S/P Trach Parkinson's diasease Dementia UTI PLAN: Vent Support CPAP tral in AM ABX Meropenm, Diflucan and Tobra nebs TF Cont T-Tube as tolerated DC plans for SNF Severiano Ag MD June 24, 2015 18:31
[2015-06-24] MEDS: ENOXAPARIN SODIUM 30 MG/0.3 ML SYRINGE SQ SCH (20:47)
[2015-06-24] MEDS: OLANZapine 2.5 MG TAB GT SCH (20:48)
[2015-06-24] MEDS: CHLORHEXIDINE GLUCONATE 2 % 1 PACK (2 CLOTHS) TOP SCH (21:05)
[2015-06-25] VITALS (18 sets, daily range): BP systolic 131–160; BP diastolic 67–81; PULSE 61–93; RESP 19–28; TEMP 97.7–99.8; O2SAT 96–100
[2015-06-25] MEDS: SODIUM CHLOR 0.9% 1000 ML INJ 1,000 ML IV SCH ×3 (05:27→21:27)
[2015-06-25] MEDS: CARBIDOPA/LEVODOPA 25 MG/100 MG TAB GT SCH ×3 (05:44→22:58)
[2015-06-25] MEDS: INSULIN NovoLIN REGULAR SUPPLEMENTAL SCALE SQ SCH ×4 (05:44→23:06)
[2015-06-25] MEDS: CHLORHEXIDINE 0.12% (ORAL KIT) 15 ML CUP MT SCH ×2 (08:00→23:03)
[2015-06-25] MEDS: GABAPENTIN 300 MG CAP G-TUBE SCH ×2 (08:11→22:58)
[2015-06-25] MEDS: QUEtiapine FUMARATE 25 MG TAB G-TUBE SCH (08:11)
[2015-06-25] MEDS: RESP: TOBRAMYCIN SULFATE 80 MG/2 ML NEB NEB SCH ×2 (08:11→20:01)
[2015-06-25] MEDS: PARoxetine HCL 20 MG TAB G-TUBE SCH (08:11)
[2015-06-25] MEDS: LACTOBACILLUS ACIDOPHILUS TAB PO SCH ×3 (08:11→18:06)
[2015-06-25] MEDS: FLUCONAZOLE 200 MG TAB PEG SCH (08:11)
[2015-06-25] MEDS: PANTOPRAZOLE SODIUM 40 MG VIAL IV SCH (08:12)
[2015-06-25] MEDS: SODIUM CHLORIDE 0.9% FLUSH 5 ML FLUSH IVF SCH ×2 (08:12→21:00)
[2015-06-25] MEDS: MIDODRINE 5 MG TAB G-TUBE SCH ×2 (08:13→21:00)
[2015-06-25] MEDS: ARTIFICIAL TEARS OPTH SOLN 15 ML BTL EACH EYE SCH ×3 (08:13→18:00)
--- NOTE | 2015-06-25 15:24 | HHI.PR ---
Subjective Remarks no acute issues d/w pulmonary , awaiting trech sizing before dc Objective Vitals Vital Signs Date Time Temp Pulse Resp B/P Pulse Ox O2 Delivery O2 Flow Rate FiO2 06/25/15 13:50 100 Face Tent 6.00 35 06/25/15 12:09 100 35 06/25/15 10:00 71 06/25/15 08:20 100 35 06/25/15 08:00 76 06/25/15 08:00 97.9 76 23 160/76 100 06/25/15 06:00 61 06/25/15 04:10 96 35 06/25/15 04:00 66 06/25/15 04:00 97.7 66 19 132/67 96 06/25/15 02:00 66 06/25/15 01:10 100 35 06/25/15 00:00 98.6 76 23 160/81 100 06/25/15 00:00 76 06/24/15 22:06 100 35 06/24/15 22:00 89 06/24/15 20:00 89 06/24/15 20:00 98.6 89 40 168/95 100 06/24/15 19:58 100 35 06/24/15 18:00 85 06/24/15 16:00 98.3 83 20 139/83 100 06/24/15 16:00 83 I/O 06/24/15 06/24/15 06/24/15 06/25/15 06/25/15 06/25/15 07:00 15:00 23:00 07:00 15:00 23:00 Intake Total 1087 ml 1550 ml 1466 ml 1216 ml Output Total 700 ml 1450 ml 350 ml 1000 ml Balance 387 ml 100 ml 1116 ml 216 ml IV Total 682 ml 1000 ml 926 ml 1046 ml Tube Feeding 285 ml 490 ml 540 ml 170 ml Other 120 ml 60 ml Output Urine Total 700 ml 1450 ml 350 ml 1000 ml Tube Feeding Residual Discard 0 ml 0 ml # Bowel Movements 1 1 Result Diagram: 06/22/15 0540 06/24/15 0843 Objective Remarks GENERAL: Cachectic, contracted patient, drowsy in no apparent distress. CARDIOVASCULAR: Regular rate and rhythm without murmurs, gallops, or rubs. RESPIRATORY: positive rhonchi bilaterally. Few wheezes GASTROINTESTINAL: Abdomen soft, non-tender, nondistended. Normal active bowel sounds PEG tube in place MUSCULOSKELETAL: Lower extremity in crossover contraction fixed discission, fairly positive pedal pulses,. NEURO: somnolent , doesn't follow commands, spontaneous movement of upper or lower extremity, doesn't answer question A/P Assessment and Plan 55 years old male with tracheostomy and PEG tube detention resident admitted for: Severe sepsis improved Lactic acidosis improved Acute on chronic respiratory failure on mechanical vent, weaning process ongoing Possible tracheobronchitis, groundglass opacity on chest x-ray, chest x-ray reviewed by me Multiple resistant organism infection Chronic nonspecific urinary bladder wall thickening Putnam catheter in place Chronic dementia, encephalopathy, Parkinson disease UTI with ESBL Blood culture positive staph epidermidis in 1 tube,? Contamination History of chronic colonization with MRSA S/P tracheostomy S/P PEG tube Stage II sacral the conus ulcer on admission Mild Malnutrition prealbumin 13, alb 2.9 DVT GI prophylaxis Plane: d/w , awaiting trech sizing before dc Discussed with respiratory, patient now on C-pap trial Continue vancomycin and meropenem per ID recommendation target trough 15-20 for pneumonia Patient status post micafungin stop by ID Monitor electrolytes and replace All previous record from ICU reviewed, chest x-ray reviewed as well as cultures Continue C Pap trial effort for extubation Monitor blood pressure, continue rehydration Continue Zyprexa, paroxetine, Seroquel, Sinemet for agitation and dementia morphine by mouth, gabapentin, for pain management Potassium and magnesium replacement protocol Follow process coach recommendation for malnutrition Lovenox 30 mg for DVT prophylaxis Protonix per PEG tube for GI proph Discharge Planning to LTC when cleared by pulmonary after completing trech management Jb Ervin MD June 25, 2015 15:24
[2015-06-25] MEDS: PROPOFOL 1000 MG/100 ML IV SCH (18:04)
[2015-06-25] MEDS: MORPHINE SULFATE ORAL SOLN 10 MG/0.5 ML SYRINGE PO PRN (18:06)
[2015-06-25] MEDS: CHLORHEXIDINE GLUCONATE 2 % 1 PACK (2 CLOTHS) TOP SCH (20:17)
[2015-06-25] MEDS: OLANZapine 2.5 MG TAB GT SCH (22:58)
[2015-06-25] MEDS: ENOXAPARIN SODIUM 30 MG/0.3 ML SYRINGE SQ SCH (23:00)
[2015-06-26] VITALS (18 sets, daily range): BP systolic 121–178; BP diastolic 62–110; PULSE 62–96; RESP 20–38; TEMP 97.4–99.8; O2SAT 99–100
[2015-06-26] MEDS: PROPOFOL 1000 MG/100 ML IV SCH ×2 (03:22→22:55)
[2015-06-26] MEDS: CARBIDOPA/LEVODOPA 25 MG/100 MG TAB GT SCH ×3 (05:40→21:21)
[2015-06-26] MEDS: SODIUM CHLOR 0.9% 1000 ML INJ 1,000 ML IV SCH ×3 (05:41→21:22)
[2015-06-26] MEDS: INSULIN NovoLIN REGULAR SUPPLEMENTAL SCALE SQ SCH ×2 (05:50→18:00)
[2015-06-26] MEDS: CHLORHEXIDINE 0.12% (ORAL KIT) 15 ML CUP MT SCH ×2 (08:00→21:21)
[2015-06-26] MEDS: RESP: TOBRAMYCIN SULFATE 80 MG/2 ML NEB NEB SCH ×2 (08:06→20:36)
[2015-06-26] MEDS: MIDODRINE 5 MG TAB G-TUBE SCH ×2 (09:00→21:00)
[2015-06-26] MEDS: ARTIFICIAL TEARS OPTH SOLN 15 ML BTL EACH EYE SCH ×3 (09:00→18:00)
--- NOTE | 2015-06-26 10:46 | HHI.PR ---
Subjective Remarks Patient open eyes to tactile stimuli, doesn't answer question, no acute issues overnight Trach and vent management in order to prepare patient for transfer to [facility] managed by voice writing reporter Objective Vitals Vital Signs Date Time Temp Pulse Resp B/P Pulse Ox O2 Delivery O2 Flow Rate FiO2 06/26/15 10:28 100 T-piece 40 06/26/15 08:13 35 06/26/15 08:13 100 35 06/26/15 06:00 63 06/26/15 04:10 99 35 06/26/15 04:00 97.4 62 20 121/62 100 06/26/15 04:00 62 06/26/15 02:00 78 06/26/15 01:16 99 35 06/26/15 00:00 78 06/26/15 00:00 99.8 78 26 155/70 100 06/25/15 22:00 82 06/25/15 20:01 100 35 06/25/15 20:00 99.8 93 28 131/71 100 06/25/15 20:00 93 06/25/15 18:00 79 06/25/15 16:00 76 06/25/15 14:00 78 06/25/15 13:50 100 Face Tent 6.00 35 06/25/15 12:09 100 35 06/25/15 12:00 70 I/O 06/25/15 06/25/15 06/25/15 06/26/15 06/26/15 06/26/15 07:00 15:00 23:00 07:00 15:00 23:00 Intake Total 1216 ml 2087 ml 853 ml 1222 ml Output Total 1000 ml 2000 ml 950 ml 700 ml Balance 216 ml 87 ml -97 ml 522 ml IV Total 1046 ml 1360 ml 285 ml 717 ml Tube Feeding 170 ml 727 ml 448 ml 385 ml Other 120 ml 120 ml Output Urine Total 1000 ml 2000 ml 950 ml 700 ml # Bowel Movements 1 1 1 Result Diagram: 06/22/15 0540 06/24/15 0843 Objective Remarks GENERAL: Cachectic, contracted patient, drowsy in no apparent distress. CARDIOVASCULAR: Regular rate and rhythm without murmurs, gallops, or rubs. RESPIRATORY: positive rhonchi bilaterally. Few wheezes GASTROINTESTINAL: Abdomen soft, non-tender, nondistended. Normal active bowel sounds PEG tube in place MUSCULOSKELETAL: Lower extremity in crossover contraction fixed discission, fairly positive pedal pulses,. NEURO: somnolent , doesn't follow commands, spontaneous movement of upper or lower extremity, doesn't answer question A/P Assessment and Plan 55 years old male with tracheostomy and PEG tube assisted resident admitted for: Severe sepsis improved Lactic acidosis improved Acute on chronic respiratory failure on mechanical vent, weaning process ongoing Possible tracheobronchitis, groundglass opacity on chest x-ray, chest x-ray reviewed by me Multiple resistant organism infection Chronic nonspecific urinary bladder wall thickening Putnam catheter in place Chronic dementia, encephalopathy, Parkinson disease UTI with ESBL Blood culture positive staph epidermidis in 1 tube,? Contamination History of chronic colonization with MRSA S/P tracheostomy S/P PEG tube Stage II sacral the conus ulcer on admission Mild Malnutrition prealbumin 13, alb 2.9 DVT GI prophylaxis Plane: d/w , vent management with C Pap trial during the day, awaiting trech sizing before dc Status post vancomycin and meropenem per ID , on tobramycin nebulizer and Diflucan Patient status post micafungin stop by ID Monitor electrolytes and replace Monitor blood pressure Continue Zyprexa, paroxetine, Seroquel, Sinemet for agitation and dementia morphine by mouth, gabapentin, for pain management Potassium and magnesium replacement protocol Follow marketing executive recommendation for malnutrition Lovenox 30 mg for DVT prophylaxis Protonix per PEG tube for GI proph Discharge Planning to LTC when cleared by pulmonary Jb Ervin MD June 26, 2015 10:45 Jb Ervin MD June 26, 2015 10:45
[2015-06-26] MEDS ORDERED: [UNRECOGNIZED DRUG - CODE] NEB (10:52)
[2015-06-26] MEDS ORDERED: NRSS SQ (10:52)
[2015-06-26] MEDS ORDERED: PANT40P IV (10:52)
[2015-06-26] MEDS ORDERED: FLUC200T63 PEG (10:52)
[2015-06-26] MEDS: QUEtiapine FUMARATE 25 MG TAB G-TUBE SCH (11:42)
[2015-06-26] MEDS: GABAPENTIN 300 MG CAP G-TUBE SCH ×2 (11:42→21:21)
[2015-06-26] MEDS: PANTOPRAZOLE SODIUM 40 MG VIAL IV SCH (11:42)
[2015-06-26] MEDS: LACTOBACILLUS ACIDOPHILUS TAB PO SCH ×3 (11:43→18:15)
[2015-06-26] MEDS: PARoxetine HCL 20 MG TAB G-TUBE SCH (11:43)
[2015-06-26] MEDS: FLUCONAZOLE 200 MG TAB PEG SCH (11:43)
[2015-06-26] MEDS: SODIUM CHLORIDE 0.9% FLUSH 5 ML FLUSH IVF SCH ×2 (11:43→21:00)
--- NOTE | 2015-06-26 17:41 | HHI.PR ---
Subjective Remarks 54 YOWM with ChRF,Trach, multiple uti On Vent No fever Opens eyes, follows commands Gets tired on CPAP Put back on ACV Objective Vital Signs Vital Signs Date Time Temp Pulse Resp B/P Pulse Ox O2 Delivery O2 Flow Rate FiO2 06/26/15 12:00 80 06/26/15 12:00 98.6 80 20 159/72 100 06/26/15 11:38 99 35 06/26/15 10:28 100 T-piece 40 06/26/15 10:00 69 06/26/15 08:13 35 06/26/15 08:13 100 35 06/26/15 08:00 98.4 69 20 127/65 100 06/26/15 08:00 69 06/26/15 06:00 63 06/26/15 04:10 99 35 06/26/15 04:00 97.4 62 20 121/62 100 06/26/15 04:00 62 06/26/15 02:00 78 06/26/15 01:16 99 35 06/26/15 00:00 78 06/26/15 00:00 99.8 78 26 155/70 100 06/25/15 22:00 82 06/25/15 20:01 100 35 06/25/15 20:00 99.8 93 28 131/71 100 06/25/15 20:00 93 06/25/15 18:00 79 I/O 06/25/15 06/25/15 06/25/15 06/26/15 06/26/15 06/26/15 07:00 15:00 23:00 07:00 15:00 23:00 Intake Total 1216 ml 2087 ml 853 ml 1222 ml Output Total 1000 ml 2000 ml 950 ml 700 ml Balance 216 ml 87 ml -97 ml 522 ml IV Total 1046 ml 1360 ml 285 ml 717 ml Tube Feeding 170 ml 727 ml 448 ml 385 ml Other 120 ml 120 ml Output Urine Total 1000 ml 2000 ml 950 ml 700 ml # Bowel Movements 1 1 1 Result Diagram: 06/22/15 0540 06/24/15 0843 Objective Remarks GENERAL: MBMN male on Vent. SKIN: Warm and dry. HEAD: Normocephalic. EYES: No scleral icterus. No injection or drainage. NECK: Supple, trachea midline. No JVD or lymphadenopathy. has trach CARDIOVASCULAR: Regular rate and rhythm without murmurs, gallops, or rubs. RESPIRATORY: Breath sounds equal bilaterally. No accessory muscle use. GASTROINTESTINAL: Abdomen soft, non-tender, nondistended. PEG tube in place MUSCULOSKELETAL: No cyanosis, or edema. BACK: Nontender without obvious deformity. No CVA tenderness. A/P Assessment and Plan VDRF S/P Trach Parkinson's diasease Dementia UTI PLAN: Vent Support CPAP tral in AM ABX Josie Talley and Jin ramirez TF ACV CPAP trial in AM Severiano Ag MD June 26, 2015 17:41
[2015-06-26] MEDS: CHLORHEXIDINE GLUCONATE 2 % 1 PACK (2 CLOTHS) TOP SCH (19:06)
[2015-06-26] MEDS: ENOXAPARIN SODIUM 30 MG/0.3 ML SYRINGE SQ SCH (21:21)
[2015-06-26] MEDS: OLANZapine 2.5 MG TAB GT SCH (21:21)
[2015-06-27] VITALS (23 sets, daily range): BP systolic 117–167; BP diastolic 60–79; PULSE 63–84; RESP 20–35; TEMP 97.3–99.2; O2SAT 100
[2015-06-27] MEDS: CARBIDOPA/LEVODOPA 25 MG/100 MG TAB GT SCH ×3 (05:43→22:14)
[2015-06-27] MEDS: SODIUM CHLOR 0.9% 1000 ML INJ 1,000 ML IV SCH ×2 (05:43→12:25)
[2015-06-27] MEDS: INSULIN NovoLIN REGULAR SUPPLEMENTAL SCALE SQ SCH ×4 (05:43→18:00)
[2015-06-27] MEDS: RESP: TOBRAMYCIN SULFATE 80 MG/2 ML NEB NEB SCH ×2 (08:44→20:09)
[2015-06-27] MEDS: MIDODRINE 5 MG TAB G-TUBE SCH ×2 (09:06→19:54)
[2015-06-27] MEDS: FLUCONAZOLE 200 MG TAB PEG SCH (09:06)
[2015-06-27] MEDS: GABAPENTIN 300 MG CAP G-TUBE SCH ×2 (09:06→19:54)
[2015-06-27] MEDS: QUEtiapine FUMARATE 25 MG TAB G-TUBE SCH (09:06)
[2015-06-27] MEDS: LACTOBACILLUS ACIDOPHILUS TAB PO SCH ×3 (09:06→18:00)
[2015-06-27] MEDS: PANTOPRAZOLE SODIUM 40 MG VIAL IV SCH (09:06)
[2015-06-27] MEDS: PARoxetine HCL 20 MG TAB G-TUBE SCH (09:06)
[2015-06-27] MEDS: SODIUM CHLORIDE 0.9% FLUSH 5 ML FLUSH IVF SCH ×2 (09:07→19:54)
[2015-06-27] MEDS: PILL SPLITTER OTHER PRN (09:07)
[2015-06-27] MEDS: CHLORHEXIDINE 0.12% (ORAL KIT) 15 ML CUP MT SCH ×2 (09:07→19:31)
[2015-06-27] MEDS: ARTIFICIAL TEARS OPTH SOLN 15 ML BTL EACH EYE SCH ×3 (09:08→18:00)
[2015-06-27] MEDS: PROPOFOL 1000 MG/100 ML IV SCH (13:57)
--- NOTE | 2015-06-27 14:54 | HHI.PR ---
Subjective Remarks tolerating tube feedings on vent 35% fi02, unable to tolerated CPAP before minimal secretions on suctioning Objective Vitals Vital Signs Date Time Temp Pulse Resp B/P Pulse Ox O2 Delivery O2 Flow Rate FiO2 06/27/15 14:10 73 06/27/15 12:00 73 06/27/15 12:00 98.8 73 24 150/70 100 06/27/15 11:35 100 35 06/27/15 09:02 83 35 142/79 100 06/27/15 09:01 100 35 06/27/15 08:57 100 35 06/27/15 08:57 35 06/27/15 08:45 73 06/27/15 08:44 100 35 06/27/15 08:00 99.2 76 21 138/65 100 06/27/15 06:00 68 06/27/15 04:00 97.3 63 20 128/64 100 06/27/15 04:00 63 06/27/15 03:43 100 35 06/27/15 02:00 84 06/27/15 01:04 100 35 06/27/15 00:00 70 06/27/15 00:00 98.2 70 20 117/60 100 06/26/15 22:00 74 06/26/15 20:36 100 35 06/26/15 20:00 98.8 96 38 178/110 100 06/26/15 20:00 96 06/26/15 18:00 93 06/26/15 16:00 86 06/26/15 16:00 98.5 86 20 153/77 100 I/O 06/26/15 06/26/15 06/26/15 06/27/15 06/27/15 06/27/15 07:00 15:00 23:00 07:00 15:00 23:00 Intake Total 1222 ml 2064 ml 834 ml 1725 ml 1900 ml Output Total 700 ml 1750 ml 625 ml 1475 ml 1200 ml Balance 522 ml 314 ml 209 ml 250 ml 700 ml IV Total 717 ml 1214 ml 490 ml 1084 ml 1100 ml Tube Feeding 385 ml 850 ml 224 ml 521 ml 550 ml Other 120 ml 120 ml 120 ml 250 ml Output Urine Total 700 ml 1750 ml 625 ml 1475 ml 1200 ml # Bowel Movements 1 0 1 1 Result Diagram: 06/24/15 0843 Imaging Last Impressions Chest X-Ray 06/20/15 0600 Signed Impressions: Service Date/Time: Saturday, June 20, 2015 04:18 - CONCLUSION: No acute cardiopulmonary disease. Eugene Schmid MD Head CT 06/18/151902 Signed Impressions: Service Date/Time: June 19:31 - CONCLUSION: Diffuse atrophy unchanged. No acute intracranial findings. Kush Briscoe MD Abdomen/Pelvis CT 06/18/151902 Signed Impressions: Service Date/Time: June 19:36 - CONCLUSION: 1. Chronic nonspecific urinary bladder wall thickening. Bladder collapsed with Valdez catheter in place. 2. Chronic bilateral mid to lower lung zone groundglass opacity. 3. Nonobstructing left renal calculus. 4. Distended rectum. Kush Briscoe MD Objective Remarks alert, ff commands, + tracking anicteric no oral thrush trach in place lungs no rales regular rhythm good bowel sounds, PEG in place extremities - no edema, right leg is crossed over the left leg- seems chronic- marked resistance to uncross valdez in place Urinary Catheter: Yes Assessment to: Remove Valdez insert reason: Prolonged Immobilization A/P Assessment and Plan 55 years old male with tracheostomy and PEG tube [facility] resident admitted for: Severe sepsis improved Lactic acidosis improved Acute on chronic respiratory failure on mechanical vent, weaning process ongoing Possible tracheobronchitis, groundglass opacity on chest x-ray, S/P tracheostomy - Pulmonary ff for off vent trials - , vent management with C Pap trial during the day, awaiting trach sizing before dc - on nebulization Multiple resistant organism infection Chronic nonspecific urinary bladder wall thickening Valdez catheter in place Chronic dementia, encephalopathy, Parkinson disease UTI with ESBL Blood culture positive staph epidermidis in 1 tube,? 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 - valdez was last changed 06/17- size #16 S/P PEG tube - tolerating tube feedings Stage II sacral the conus ulcer on admission - wound care team chronic contractures - PT consult Mild Malnutrition prealbumin 13, alb 2.9 DVT GI prophylaxis- SCDs Plane: d/w Status post vancomycin and meropenem per ID , on tobramycin nebulizer and Diflucan Patient status post micafungin stop by ID Monitor electrolytes and replace Monitor blood pressure Continue Zyprexa, paroxetine, Seroquel, Sinemet for agitation and dementia morphine by mouth, gabapentin, for pain management Potassium and magnesium replacement protocol Follow building supplies salesperson retail recommendation for malnutrition Lovenox 30 mg for DVT prophylaxis Protonix per PEG tube for GI proph Claire Queen MD June 27, 2015 14:54
[2015-06-27] MEDS: ACETAMINOPHEN 650 MG/20.3 ML UDC TUBE PRN (19:54)
[2015-06-27] MEDS: OLANZapine 2.5 MG TAB GT SCH (19:54)
[2015-06-27] MEDS: ENOXAPARIN SODIUM 30 MG/0.3 ML SYRINGE SQ SCH (22:15)
[2015-06-28] VITALS (22 sets, daily range): BP systolic 108–158; BP diastolic 56–84; PULSE 60–80; RESP 20–26; TEMP 97.5–99.2; O2SAT 100
[2015-06-28] MEDS: CHLORHEXIDINE GLUCONATE 2 % 1 PACK (2 CLOTHS) TOP SCH (01:00)
[2015-06-28] MEDS: PROPOFOL 1000 MG/100 ML IV SCH ×2 (02:36→13:11)
[2015-06-28] MEDS: INSULIN NovoLIN REGULAR SUPPLEMENTAL SCALE SQ SCH ×5 (05:38→23:57)
[2015-06-28] MEDS: CARBIDOPA/LEVODOPA 25 MG/100 MG TAB GT SCH ×3 (05:39→21:08)
[2015-06-28] MEDS: RESP: TOBRAMYCIN SULFATE 80 MG/2 ML NEB NEB SCH ×2 (08:40→19:22)
[2015-06-28] MEDS: QUEtiapine FUMARATE 25 MG TAB G-TUBE SCH (09:33)
[2015-06-28] MEDS: FLUCONAZOLE 200 MG TAB PEG SCH (09:33)
[2015-06-28] MEDS: GABAPENTIN 300 MG CAP G-TUBE SCH ×2 (09:33→20:03)
[2015-06-28] MEDS: MIDODRINE 5 MG TAB G-TUBE SCH ×2 (09:33→20:04)
[2015-06-28] MEDS: LACTOBACILLUS ACIDOPHILUS TAB PO SCH ×3 (09:33→18:00)
[2015-06-28] MEDS: ARTIFICIAL TEARS OPTH SOLN 15 ML BTL EACH EYE SCH ×3 (09:34→18:00)
[2015-06-28] MEDS: SODIUM CHLORIDE 0.9% FLUSH 5 ML FLUSH IVF SCH ×2 (09:34→20:04)
[2015-06-28] MEDS: PARoxetine HCL 20 MG TAB G-TUBE SCH (09:34)
[2015-06-28] MEDS: PANTOPRAZOLE SODIUM 40 MG VIAL IV SCH (09:34)
[2015-06-28] MEDS: CHLORHEXIDINE 0.12% (ORAL KIT) 15 ML CUP MT SCH ×2 (09:34→20:05)
[2015-06-28] MEDS: PILL SPLITTER OTHER PRN (09:35)
[2015-06-28] MEDS: MORPHINE SULFATE ORAL SOLN 10 MG/0.5 ML SYRINGE PO PRN ×2 (10:01→21:09)
--- NOTE | 2015-06-28 13:47 | HHI.PR ---
Subjective Remarks currently on 35% Fi02 on continuous suctioning tolerating tube feedings on diprivan drip extremities- contracted- on review was on clonazepam tid Objective Vitals Vital Signs Date Time Temp Pulse Resp B/P Pulse Ox O2 Delivery O2 Flow Rate FiO2 06/28/15 11:02 20 06/28/15 10:51 100 35 06/28/15 09:22 100 35 06/28/15 09:22 35 06/28/15 08:41 100 35 06/28/15 08:00 75 06/28/15 06:00 77 06/28/15 04:00 64 06/28/15 04:00 97.6 64 20 133/75 100 06/28/15 03:19 100 35 06/28/15 02:00 69 06/28/15 00:00 73 06/28/15 00:00 98.5 73 20 137/75 100 06/27/15 23:28 100 35 06/27/15 22:00 69 06/27/15 20:54 28 06/27/15 20:09 100 35 06/27/15 20:00 99.0 80 31 167/75 100 06/27/15 20:00 80 06/27/15 18:14 79 06/27/15 16:45 100 35 06/27/15 16:04 79 06/27/15 16:04 98.8 79 25 132/73 100 06/27/15 14:14 100 35 06/27/15 14:10 73 I/O 06/27/15 06/27/15 06/27/15 06/28/15 06/28/15 06/28/15 07:00 15:00 23:00 07:00 15:00 23:00 Intake Total 1725 ml 1900 ml 679 ml 554 ml Output Total 1475 ml 1200 ml 1300 ml 550 ml Balance 250 ml 700 ml -621 ml 4 ml IV Total 1084 ml 1100 ml 51 ml 61 ml Tube Feeding 521 ml 550 ml 568 ml 463 ml Other 120 ml 250 ml 60 ml 30 ml Output Urine Total 1475 ml 1200 ml 1300 ml 550 ml # Bowel Movements 1 1 1 Result Diagram: 06/24/15 0843 Imaging Last Impressions Chest X-Ray 06/20/15 0600 Signed Impressions: Service Date/Time: Saturday, June 20, 2015 04:18 - CONCLUSION: No acute cardiopulmonary disease. Eugene Schmid MD Head CT 06/18/151902 Signed Impressions: Service Date/Time: June 19:31 - CONCLUSION: Diffuse atrophy unchanged. No acute intracranial findings. Kush Briscoe MD Abdomen/Pelvis CT 06/18/151902 Signed Impressions: Service Date/Time: June 19:36 - CONCLUSION: 1. Chronic nonspecific urinary bladder wall thickening. Bladder collapsed with Valdez catheter in place. 2. Chronic bilateral mid to lower lung zone groundglass opacity. 3. Nonobstructing left renal calculus. 4. Distended rectum. Kush Briscoe MD Objective Remarks alert, awake, + tracking anicteric no oral thrush trach in place lungs no rales regular rhythm good bowel sounds, PEG in place extremities - no edema, right leg is crossed over the left leg- seems chronic- marked resistance when I try to uncross back- stage III decubitus (06/27 exam) valdez in place Assessment to: Continue Valdez insert reason: Prolonged Immobilization A/P Assessment and Plan 55 years old male with tracheostomy and PEG tube [facility] admitted for: Severe sepsis improved Lactic acidosis improved Multiple resistant organism infection Chronic nonspecific urinary bladder wall thickening Valdez catheter in place UTI with ESBL Blood culture positive staph epidermidis in 1 tube,? 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 valdez was last changed 06/17- size #16 Status post vancomycin and meropenem per ID on tobramycin nebulizer on Diflucan till 07/03 Patient status post micafungin Monitor electrolytes and replace Acute on chronic respiratory failure on mechanical vent, weaning process ongoing Possible tracheobronchitis, ground glass opacity on chest x-ray, S/P tracheostomy -on diprivan drip -start Clonazepam 1 mg tid and start tapering off Diprivan drip gradually - Pulmonary ff for off vent trials - , vent management with C Pap trial during the day, awaiting trach sizing down to weaning trial - on nebulization, suctioning - on diprivan drip- transition to clonaepam 1 mg tid- gradual taper of diprivan drip Chronic dementia, encephalopathy, Parkinson disease -Continue Zyprexa, paroxetine, Seroquel, Sinemet for agitation and dementia morphine by mouth, gabapentin, for pain management S/P PEG tube - tolerating tube feedings Stage II sacral decubitus ulcer- present on admission - wound care team consult chronic contractures - PT , may help spasticity and pain though these are chronic conditions Mild Malnutrition prealbumin 13, alb 2.9 DVT GI prophylaxis- on Lovenox. PPI Claire Queen MD June 28, 2015 13:47 Claire Queen MD June 28, 2015 13:47 Claire Queen MD June 28, 2015 13:47
[2015-06-28] MEDS: clonazePAM 1 MG TAB PO SCH ×2 (14:22→21:08)
[2015-06-28] MEDS: OLANZapine 2.5 MG TAB GT SCH (20:03)
[2015-06-28] MEDS: ENOXAPARIN SODIUM 30 MG/0.3 ML SYRINGE SQ SCH (21:09)
[2015-06-29] VITALS (21 sets, daily range): BP systolic 104–140; BP diastolic 55–69; PULSE 56–93; RESP 18–31; TEMP 97.5–99.7; O2SAT 100
[2015-06-29] MEDS: CHLORHEXIDINE GLUCONATE 2 % 1 PACK (2 CLOTHS) TOP SCH (04:00)
[2015-06-29] MEDS: CARBIDOPA/LEVODOPA 25 MG/100 MG TAB GT SCH ×3 (05:48→22:29)
[2015-06-29] MEDS: clonazePAM 1 MG TAB PO SCH ×3 (05:48→22:29)
[2015-06-29] MEDS: INSULIN NovoLIN REGULAR SUPPLEMENTAL SCALE SQ SCH ×3 (05:49→18:00)
[2015-06-29] MEDS: MORPHINE SULFATE ORAL SOLN 10 MG/0.5 ML SYRINGE PO PRN ×2 (05:49→22:28)
[2015-06-29] MEDS: CHLORHEXIDINE 0.12% (ORAL KIT) 15 ML CUP MT SCH ×2 (08:00→22:30)
[2015-06-29] MEDS: RESP: ALBUTEROL 2.5 MG/3 ML NEB (PRN) INH (08:08)
[2015-06-29] MEDS: RESP: TOBRAMYCIN SULFATE 80 MG/2 ML NEB NEB SCH ×2 (08:08→20:02)
--- NOTE | 2015-06-29 08:18 | HHI.PR ---
Subjective Remarks awake and alert overnight on AC mode- vent we will continue trial of CPAP and t- piece as tolerated tolerating tube feedings o Objective Vitals Vital Signs Date Time Temp Pulse Resp B/P Pulse Ox O2 Delivery O2 Flow Rate FiO2 06/29/15 08:08 100 35 06/29/15 06:49 20 06/29/15 06:00 56 06/29/15 04:02 100 35 06/29/15 04:00 81 06/29/15 04:00 97.5 81 28 111/64 100 06/29/15 02:00 60 06/29/15 01:05 100 35 06/29/15 00:00 60 06/29/15 00:00 97.8 60 20 107/57 100 06/28/15 22:46 100 35 06/28/15 22:00 67 06/28/15 20:00 97.5 60 20 108/56 100 06/28/15 20:00 60 06/28/15 19:16 100 35 06/28/15 18:00 60 06/28/15 16:55 100 35 06/28/15 16:10 74 06/28/15 16:00 73 24 120/63 100 06/28/15 14:27 100 35 06/28/15 14:00 79 06/28/15 12:00 98.4 71 24 148/72 100 06/28/15 12:00 71 06/28/15 10:51 100 35 06/28/15 10:00 77 06/28/15 09:22 100 35 06/28/15 09:22 35 06/28/15 08:41 100 35 I/O 06/28/15 06/28/15 06/28/15 06/29/15 06/29/15 06/29/15 07:00 15:00 23:00 07:00 15:00 23:00 Intake Total 554 ml 822 ml 320 ml 320 ml Output Total 550 ml 500 ml 650 ml 650 ml Balance 4 ml 322 ml -330 ml -330 ml IV Total 61 ml 52 ml 32 ml 32 ml Tube Feeding 463 ml 520 ml 228 ml 228 ml Other 30 ml 250 ml 60 ml 60 ml Output Urine Total 550 ml 500 ml 650 ml 650 ml # Bowel Movements 1 1 1 Objective Remarks alert, awake, + tracking anicteric no oral thrush trach in place lungs no rales regular rhythm good bowel sounds, PEG in place extremities - no edema, right leg is crossed over the left leg- flexion contracted back- stage III decubitus (06/27 exam) valdez in place A/P Assessment and Plan 55 years old male with tracheostomy and PEG tube assisted resident admitted for: Severe sepsis improved Lactic acidosis improved Multiple resistant organism infection Chronic nonspecific urinary bladder wall thickening Valdez catheter in place UTI with ESBL Blood culture positive staph epidermidis in 1 tube,? 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 valdez was last changed 06/17- size #16 Status post vancomycin and meropenem per ID on tobramycin nebulizer on Diflucan till 07/03 Patient status post micafungin Monitor electrolytes and replace Acute on chronic respiratory failure on mechanical vent, weaning process ongoing Possible tracheobronchitis, ground glass opacity on chest x-ray, S/P tracheostomy -on diprivan drip tapered off - DC this am -started Clonazepam 1 mg tid 06/28 - Pulmonary ff for off vent trials - , vent management with C Pap trial during the day, awaiting trach sizing down to weaning trial - on nebulization, suctioning Chronic dementia, encephalopathy, Parkinson disease -Continue Zyprexa, paroxetine, Seroquel, Sinemet for agitation and dementia morphine by mouth, gabapentin, for pain management S/P PEG tube - tolerating tube feedings Stage II sacral decubitus ulcer- present on admission - wound care team consult chronic contractures - PT , may help spasticity and pain though these are chronic conditions Mild Malnutrition prealbumin 13, alb 2.9 DVT GI prophylaxis- on Lovenox. PPI Claire Queen MD June 29, 2015 08:18
[2015-06-29] MEDS: ARTIFICIAL TEARS OPTH SOLN 15 ML BTL EACH EYE SCH ×3 (09:00→18:00)
[2015-06-29] MEDS: MIDODRINE 5 MG TAB G-TUBE SCH ×2 (09:00→22:29)
[2015-06-29] MEDS: PARoxetine HCL 20 MG TAB G-TUBE SCH (09:40)
[2015-06-29] MEDS: PANTOPRAZOLE SODIUM 40 MG VIAL IV SCH (09:40)
[2015-06-29] MEDS: QUEtiapine FUMARATE 25 MG TAB G-TUBE SCH (09:40)
[2015-06-29] MEDS: FLUCONAZOLE 200 MG TAB PEG SCH (09:40)
[2015-06-29] MEDS: GABAPENTIN 300 MG CAP G-TUBE SCH ×2 (09:40→22:29)
[2015-06-29] MEDS: LACTOBACILLUS ACIDOPHILUS TAB PO SCH ×3 (09:40→18:00)
[2015-06-29] MEDS: SODIUM CHLORIDE 0.9% FLUSH 5 ML FLUSH IVF SCH ×2 (09:41→22:29)
--- NOTE | 2015-06-29 17:41 | HHI.PR ---
Subjective Remarks 54 YOWM with ChRF,Trach, multiple uti On Vent No fever Opens eyes, tolerated CPAP5/5 for 4 hrs Now on ACV Objective Vital Signs Vital Signs Date Time Temp Pulse Resp B/P Pulse Ox O2 Delivery O2 Flow Rate FiO2 06/29/15 15:48 100 35 06/29/15 11:58 100 35 06/29/15 10:00 62 06/29/15 08:15 100 35 06/29/15 08:15 35 06/29/15 08:08 100 35 06/29/15 08:00 97.8 69 22 104/55 100 06/29/15 08:00 69 06/29/15 06:49 20 06/29/15 06:00 56 06/29/15 04:02 100 35 06/29/15 04:00 81 06/29/15 04:00 97.5 81 28 111/64 100 06/29/15 02:00 60 06/29/15 01:05 100 35 06/29/15 00:00 60 06/29/15 00:00 97.8 60 20 107/57 100 06/28/15 22:46 100 35 06/28/15 22:00 67 06/28/15 20:00 97.5 60 20 108/56 100 06/28/15 20:00 60 06/28/15 19:16 100 35 06/28/15 18:00 60 I/O 06/28/15 06/28/15 06/28/15 06/29/15 06/29/15 06/29/15 07:00 15:00 23:00 07:00 15:00 23:00 Intake Total 554 ml 822 ml 320 ml 320 ml Output Total 550 ml 500 ml 650 ml 650 ml Balance 4 ml 322 ml -330 ml -330 ml IV Total 61 ml 52 ml 32 ml 32 ml Tube Feeding 463 ml 520 ml 228 ml 228 ml Other 30 ml 250 ml 60 ml 60 ml Output Urine Total 550 ml 500 ml 650 ml 650 ml # Bowel Movements 1 1 1 Objective Remarks GENERAL: MBMN male on Vent. SKIN: Warm and dry. HEAD: Normocephalic. EYES: No scleral icterus. No injection or drainage. NECK: Supple, trachea midline. No JVD or lymphadenopathy. has trach CARDIOVASCULAR: Regular rate and rhythm without murmurs, gallops, or rubs. RESPIRATORY: Breath sounds equal bilaterally. No accessory muscle use. GASTROINTESTINAL: Abdomen soft, non-tender, nondistended. PEG tube in place MUSCULOSKELETAL: No cyanosis, or edema. BACK: Nontender without obvious deformity. No CVA tenderness. A/P Assessment and Plan VDRF S/P Trach Parkinson's diasease Dementia UTI PLAN: Vent Support CPAP tral in AM ABX Meropenm, Diflucan and Tobra nebs TF ACV Daily CPAP trial . Severiano Ag MD June 29, 2015 17:41
[2015-06-29] MEDS: ACETAMINOPHEN 650 MG/20.3 ML UDC TUBE PRN (22:28)
[2015-06-29] MEDS: ENOXAPARIN SODIUM 30 MG/0.3 ML SYRINGE SQ SCH (22:28)
[2015-06-29] MEDS: OLANZapine 2.5 MG TAB GT SCH (22:29)
[2015-06-30] VITALS (20 sets, daily range): BP systolic 93–155; BP diastolic 51–106; PULSE 66–88; RESP 20–36; TEMP 98.5–99.1; O2SAT 100
[2015-06-30] MEDS: CHLORHEXIDINE GLUCONATE 2 % 1 PACK (2 CLOTHS) TOP SCH (03:35)
[2015-06-30] MEDS: INSULIN NovoLIN REGULAR SUPPLEMENTAL SCALE SQ SCH ×5 (06:00→23:47)
[2015-06-30] MEDS: CARBIDOPA/LEVODOPA 25 MG/100 MG TAB GT SCH ×3 (06:08→23:44)
[2015-06-30] MEDS: clonazePAM 1 MG TAB PO SCH ×3 (06:08→23:44)
[2015-06-30] MEDS: RESP: TOBRAMYCIN SULFATE 80 MG/2 ML NEB NEB SCH ×2 (07:56→20:01)
[2015-06-30] MEDS: CHLORHEXIDINE 0.12% (ORAL KIT) 15 ML CUP MT SCH ×2 (08:00→23:46)
--- NOTE | 2015-06-30 08:44 | HHI.PR ---
Subjective Remarks tolerating tube feedings at goal rate tolerated CPAP for 4 hours yesterda Objective Vitals Vital Signs Date Time Temp Pulse Resp B/P Pulse Ox O2 Delivery O2 Flow Rate FiO2 06/30/15 07:42 35 06/30/15 07:39 100 35 06/30/15 06:00 72 06/30/15 04:00 67 06/30/15 04:00 98.6 66 21 93/51 100 06/30/15 03:46 100 35 06/30/15 02:00 75 06/30/15 01:30 100 35 06/30/15 00:00 98.6 84 24 127/60 100 06/30/15 00:00 84 06/29/15 22:25 99.7 93 31 140/69 100 06/29/15 22:24 100 35 06/29/15 22:00 83 06/29/15 20:00 78 06/29/15 19:55 100 35 06/29/15 18:00 82 06/29/15 16:00 98.7 80 18 117/65 100 06/29/15 16:00 80 06/29/15 15:48 100 35 06/29/15 14:00 69 06/29/15 12:00 98.2 65 20 112/65 100 06/29/15 12:00 65 06/29/15 11:58 100 35 06/29/15 10:00 62 I/O 06/29/15 06/29/15 06/29/15 06/30/15 06/30/15 06/30/15 07:00 15:00 23:00 07:00 15:00 23:00 Intake Total 320 ml 921 ml 799 ml 639 ml Output Total 650 ml 925 ml 850 ml 600 ml Balance -330 ml -4 ml -51 ml 39 ml IV Total 32 ml 201 ml 56 ml 38 ml Tube Feeding 228 ml 600 ml 503 ml 481 ml Other 60 ml 120 ml 240 ml 120 ml Output Urine Total 650 ml 925 ml 850 ml 600 ml # Bowel Movements 1 1 0 1 Imaging Last Impressions Chest X-Ray 06/20/15 0600 Signed Impressions: Service Date/Time: Saturday, June 20, 2015 04:18 - CONCLUSION: No acute cardiopulmonary disease. Eugene Schmid MD Head CT 06/18/15 1903 Signed Impressions: Service Date/Time: June 19:31 - CONCLUSION: Diffuse atrophy unchanged. No acute intracranial findings. Kush Briscoe MD Abdomen/Pelvis CT 06/18/15 190 Signed Impressions: Service Date/Time: June 19:36 - CONCLUSION: 1. Chronic nonspecific urinary bladder wall thickening. Bladder collapsed with Valdez catheter in place. 2. Chronic bilateral mid to lower lung zone groundglass opacity. 3. Nonobstructing left renal calculus. 4. Distended rectum. Kush Briscoe MD Objective Remarks alert, awake, + tracking anicteric no oral thrush trach in place lungs no rales regular rhythm good bowel sounds, PEG in place extremities - no edema, right leg is crossed over the left leg- flexion contracted back- stage II decubitus (06/27 exam) valdez in place Assessment to: Continue Valdez insert reason: Prolonged Immobilization Date of Insertion: June 24, 2015 A/P Assessment and Plan 55 years old male with tracheostomy and PEG tube [facility] resident admitted for: Severe sepsis improved Lactic acidosis improved Multiple resistant organism infection Chronic nonspecific urinary bladder wall thickening Valdez catheter in place UTI with ESBL Blood culture positive staph epidermidis in 1 tube,? 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 valdez was last changed 06/17- size #16 Status post vancomycin and meropenem per ID on tobramycin nebulizer on Diflucan till 07/03 Patient status post micafungin Monitor electrolytes and replace Acute on chronic respiratory failure on mechanical vent, weaning process ongoing Possible tracheobronchitis, ground glass opacity on chest x-ray, S/P tracheostomy -on diprivan drip tapered off - DC-started Clonazepam 1 mg tid 06/28 - Pulmonary ff for off vent trials - , vent management with C Pap trial during the day, awaiting trach sizing down to weaning trial - on nebulization, suctioning Chronic dementia, encephalopathy, Parkinson disease -Continue Zyprexa, paroxetine, Seroquel, Sinemet for agitation and dementia morphine by mouth, gabapentin, for pain management S/P PEG tube - tolerating tube feedings Stage II sacral decubitus ulcer- present on admission - wound care team consult chronic contractures - PT , may help spasticity and pain though these are chronic conditions Mild Malnutrition prealbumin 13, alb 2.9 DVT GI prophylaxis- on Lovenox. PPI Claire Queen MD June 30, 2015 08:43
[2015-06-30] MEDS: GABAPENTIN 300 MG CAP G-TUBE SCH ×2 (08:45→23:44)
[2015-06-30] MEDS: LACTOBACILLUS ACIDOPHILUS TAB PO SCH ×3 (08:45→18:28)
[2015-06-30] MEDS: QUEtiapine FUMARATE 25 MG TAB G-TUBE SCH (08:45)
[2015-06-30] MEDS: FLUCONAZOLE 200 MG TAB PEG SCH (08:45)
[2015-06-30] MEDS: PARoxetine HCL 20 MG TAB G-TUBE SCH (08:45)
[2015-06-30] MEDS: ARTIFICIAL TEARS OPTH SOLN 15 ML BTL EACH EYE SCH ×3 (08:46→18:28)
[2015-06-30] MEDS: PANTOPRAZOLE SODIUM 40 MG VIAL IV SCH (08:46)
[2015-06-30] MEDS: MIDODRINE 5 MG TAB G-TUBE SCH ×2 (08:46→23:44)
[2015-06-30] MEDS: SODIUM CHLORIDE 0.9% FLUSH 5 ML FLUSH IVF SCH ×2 (08:46→23:43)
--- NOTE | 2015-06-30 18:31 | HHI.PR ---
Subjective Remarks 54 YOWM with ChRF,Trach, multiple uti On Vent No fever Opens eyes, tolerated CPAP5/5 for 4 hrs Objective Vital Signs Vital Signs Date Time Temp Pulse Resp B/P Pulse Ox O2 Delivery O2 Flow Rate FiO2 06/30/15 15:27 100 35 06/30/15 11:17 100 35 06/30/15 08:00 74 06/30/15 08:00 99.1 74 23 115/55 100 06/30/15 07:42 35 06/30/15 07:39 100 35 06/30/15 06:00 72 06/30/15 04:00 67 06/30/15 04:00 98.6 66 21 93/51 100 06/30/15 03:46 100 35 06/30/15 02:00 75 06/30/15 01:30 100 35 06/30/15 00:00 98.6 84 24 127/60 100 06/30/15 00:00 84 06/29/15 22:25 99.7 93 31 140/69 100 06/29/15 22:24 100 35 06/29/15 22:00 83 06/29/15 20:00 78 06/29/15 19:55 100 35 I/O 06/29/15 06/29/15 06/29/15 06/30/15 06/30/15 06/30/15 07:00 15:00 23:00 07:00 15:00 23:00 Intake Total 320 ml 921 ml 799 ml 639 ml Output Total 650 ml 925 ml 850 ml 600 ml Balance -330 ml -4 ml -51 ml 39 ml IV Total 32 ml 201 ml 56 ml 38 ml Tube Feeding 228 ml 600 ml 503 ml 481 ml Other 60 ml 120 ml 240 ml 120 ml Output Urine Total 650 ml 925 ml 850 ml 600 ml # Bowel Movements 1 1 0 1 Objective Remarks GENERAL: MBMN male on Vent. SKIN: Warm and dry. HEAD: Normocephalic. EYES: No scleral icterus. No injection or drainage. NECK: Supple, trachea midline. No JVD or lymphadenopathy. has trach CARDIOVASCULAR: Regular rate and rhythm without murmurs, gallops, or rubs. RESPIRATORY: Breath sounds equal bilaterally. No accessory muscle use. GASTROINTESTINAL: Abdomen soft, non-tender, nondistended. PEG tube in place MUSCULOSKELETAL: No cyanosis, or edema. BACK: Nontender without obvious deformity. No CVA tenderness. A/P Assessment and Plan VDRF S/P Trach Parkinson's diasease Dementia UTI PLAN: Vent Support CPAP tral in AM ABX Meropenm, Diflucan and Tobra nebs TF ACV Daily CPAP trial . Tube feeding. Severiano Ag MD June 30, 2015 18:31
[2015-06-30] MEDS: ENOXAPARIN SODIUM 30 MG/0.3 ML SYRINGE SQ SCH (23:44)
[2015-06-30] MEDS: MORPHINE SULFATE ORAL SOLN 10 MG/0.5 ML SYRINGE PO PRN (23:45)
[2015-06-30] MEDS: OLANZapine 2.5 MG TAB GT SCH (23:46)
[2015-06-30] MEDS: ACETAMINOPHEN 650 MG/20.3 ML UDC TUBE PRN (23:49)
[2015-07-01] VITALS (20 sets, daily range): BP systolic 105–129; BP diastolic 57–85; PULSE 64–93; RESP 20–28; TEMP 97.6–98.6; O2SAT 100
[2015-07-01] MEDS: CHLORHEXIDINE GLUCONATE 2 % 1 PACK (2 CLOTHS) TOP SCH ×2 (03:13→20:20)
[2015-07-01] MEDS: INSULIN NovoLIN REGULAR SUPPLEMENTAL SCALE SQ SCH ×4 (05:43→22:51)
[2015-07-01] MEDS: RESP: TOBRAMYCIN SULFATE 80 MG/2 ML NEB NEB SCH ×2 (07:55→19:34)
[2015-07-01] MEDS: LACTOBACILLUS ACIDOPHILUS TAB PO SCH ×3 (08:18→18:27)
[2015-07-01] MEDS: PARoxetine HCL 20 MG TAB G-TUBE SCH (08:18)
[2015-07-01] MEDS: GABAPENTIN 300 MG CAP G-TUBE SCH ×2 (08:18→20:16)
[2015-07-01] MEDS: CHLORHEXIDINE 0.12% (ORAL KIT) 15 ML CUP MT SCH ×2 (08:18→20:00)
[2015-07-01] MEDS: MIDODRINE 5 MG TAB G-TUBE SCH ×2 (08:19→20:19)
[2015-07-01] MEDS: SODIUM CHLORIDE 0.9% FLUSH 5 ML FLUSH IVF SCH ×2 (08:19→20:19)
[2015-07-01] MEDS: PANTOPRAZOLE SODIUM 40 MG VIAL IV SCH (08:19)
[2015-07-01] MEDS: QUEtiapine FUMARATE 25 MG TAB G-TUBE SCH (08:20)
[2015-07-01] MEDS: FLUCONAZOLE 200 MG TAB PEG SCH (08:42)
[2015-07-01] MEDS: ARTIFICIAL TEARS OPTH SOLN 15 ML BTL EACH EYE SCH ×3 (11:09→18:26)
[2015-07-01] MEDS: clonazePAM 1 MG TAB PO SCH ×3 (13:42→20:20)
[2015-07-01] MEDS: CARBIDOPA/LEVODOPA 25 MG/100 MG TAB GT SCH ×3 (13:42→20:20)
--- NOTE | 2015-07-01 14:30 | HHI.PR ---
Subjective Remarks no acute events tolerating CPAP trial tolerating tube feedings Objective Vitals Vital Signs Date Time Temp Pulse Resp B/P Pulse Ox O2 Delivery O2 Flow Rate FiO2 07/01/15 12:00 79 07/01/15 12:00 98.1 79 24 113/65 100 07/01/15 11:10 100 35 07/01/15 11:10 35 07/01/15 10:00 80 07/01/15 08:00 75 07/01/15 08:00 97.7 75 28 105/58 100 07/01/15 07:55 100 35 07/01/15 06:14 97.6 72 20 113/57 100 07/01/15 06:00 64 07/01/15 04:41 100 35 07/01/15 04:00 71 07/01/15 02:00 78 07/01/15 00:37 100 35 07/01/15 00:00 81 06/30/15 23:39 99.1 85 27 130/68 100 06/30/15 22:15 100 35 06/30/15 22:00 88 06/30/15 20:00 99.1 86 36 155/106 100 06/30/15 20:00 86 06/30/15 19:57 100 35 06/30/15 19:55 35 06/30/15 18:00 74 06/30/15 16:00 98.9 78 20 112/59 100 06/30/15 16:00 74 06/30/15 15:27 100 35 I/O 06/30/15 06/30/15 06/30/15 07/01/15 07/01/15 07/01/15 07:00 15:00 23:00 07:00 15:00 23:00 Intake Total 639 ml 147 ml 987 ml Output Total 600 ml 1400 ml 1100 ml Balance 39 ml -1253 ml -113 ml IV Total 38 ml 62 ml 35 ml Tube Feeding 481 ml 85 ml 772 ml Other 120 ml 180 ml Output Urine Total 600 ml 1400 ml 1100 ml # Bowel Movements 1 1 3 Imaging Last Impressions Chest X-Ray 06/20/15 0600 Signed Impressions: Service Date/Time: Saturday, June 20, 2015 04:18 - CONCLUSION: No acute cardiopulmonary disease. Eugene Schmid MD Head CT 06/18/15 1903 Signed Impressions: Service Date/Time: June 19:31 - CONCLUSION: Diffuse atrophy unchanged. No acute intracranial findings. Kush Briscoe MD Abdomen/Pelvis CT 06/18/151902 Signed Impressions: Service Date/Time: June 19:36 - CONCLUSION: 1. Chronic nonspecific urinary bladder wall thickening. Bladder collapsed with Valdez catheter in place. 2. Chronic bilateral mid to lower lung zone groundglass opacity. 3. Nonobstructing left renal calculus. 4. Distended rectum. Kush Briscoe MD Objective Remarks alert, awake, + tracking anicteric no oral thrush trach in place lungs no rales regular rhythm good bowel sounds, PEG in place extremities - no edema, right leg is crossed over the left leg- flexion contracted back- stage II decubitus (06/27 exam) valdez in place Date of Insertion: June 24, 2015 A/P Assessment and Plan 55 years old male with tracheostomy and PEG tube senior care resident admitted for: Severe sepsis improved Lactic acidosis improved Multiple resistant organism infection Chronic nonspecific urinary bladder wall thickening Valdez catheter in place UTI with ESBL Blood culture positive staph epidermidis in 1 tube,? 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 valdez was last changed 06/17- size #16 Status post vancomycin and meropenem per ID on tobramycin nebulizer on Diflucan till 07/03 Patient status post micafungin Monitor electrolytes and replace Acute on chronic respiratory failure on mechanical vent, weaning process ongoing Possible tracheobronchitis, ground glass opacity on chest x-ray, S/P tracheostomy -on diprivan drip tapered off - DC-started Clonazepam 1 mg tid 06/28 - Pulmonary ff for off vent trials - , vent management with C Pap trial during the day, awaiting trach sizing down to weaning trial - on nebulization, suctioning Chronic dementia, encephalopathy, Parkinson disease -Continue Zyprexa, paroxetine, Seroquel, Sinemet for agitation and dementia morphine by mouth, gabapentin, for pain management S/P PEG tube - tolerating tube feedings Stage II sacral decubitus ulcer- present on admission - wound care team consult chronic contractures - PT , may help spasticity and pain though these are chronic conditions Mild Malnutrition prealbumin 13, alb 2.9 DVT GI prophylaxis- on Lovenox. PPI Claire Queen MD July 01, 2015 14:30
--- NOTE | 2015-07-01 17:25 | HHI.PR ---
Subjective Remarks 54 YOWM with ChRF,Trach, multiple uti On Vent No fever Opens eyes, On CPAP /, fi02 35% Tolerates well Objective Vital Signs Vital Signs Date Time Temp Pulse Resp B/P Pulse Ox O2 Delivery O2 Flow Rate FiO2 07/01/15 16:00 98.2 93 28 113/58 100 07/01/15 16:00 93 07/01/15 15:40 100 35 07/01/15 14:00 84 07/01/15 12:00 79 07/01/15 12:00 98.1 79 24 113/65 100 07/01/15 11:10 100 35 07/01/15 11:10 35 07/01/15 10:00 80 07/01/15 08:00 75 07/01/15 08:00 97.7 75 28 105/58 100 07/01/15 07:55 100 35 07/01/15 06:14 97.6 72 20 113/57 100 07/01/15 06:00 64 07/01/15 04:41 100 35 07/01/15 04:00 71 07/01/15 02:00 78 07/01/15 00:37 100 35 07/01/15 00:00 81 06/30/15 23:39 99.1 85 27 130/68 100 06/30/15 22:15 100 35 06/30/15 22:00 88 06/30/15 20:00 99.1 86 36 155/106 100 06/30/15 20:00 86 06/30/15 19:57 100 35 06/30/15 19:55 35 06/30/15 18:00 74 I/O 06/30/15 06/30/15 06/30/15 07/01/15 07/01/15 07/01/15 07:00 15:00 23:00 07:00 15:00 23:00 Intake Total 639 ml 147 ml 987 ml Output Total 600 ml 1400 ml 1100 ml 650 ml Balance 39 ml -1253 ml -113 ml -650 ml IV Total 38 ml 62 ml 35 ml Tube Feeding 481 ml 85 ml 772 ml Other 120 ml 180 ml Output Urine Total 600 ml 1400 ml 1100 ml 650 ml # Bowel Movements 1 1 3 3 Objective Remarks GENERAL: MBMN male on Vent. SKIN: Warm and dry. HEAD: Normocephalic. EYES: No scleral icterus. No injection or drainage. NECK: Supple, trachea midline. No JVD or lymphadenopathy. has trach CARDIOVASCULAR: Regular rate and rhythm without murmurs, gallops, or rubs. RESPIRATORY: Breath sounds equal bilaterally. No accessory muscle use. GASTROINTESTINAL: Abdomen soft, non-tender, nondistended. PEG tube in place MUSCULOSKELETAL: No cyanosis, or edema. BACK: Nontender without obvious deformity. No CVA tenderness. A/P Assessment and Plan VDRF S/P Trach Parkinson's diasease Dementia UTI PLAN: Vent Support CPAP tral in AM ABX Meropenm, Diflucan and Tobra nebs TF Cont CPAP 12/5 T-tube trial in AM Severiano Ag MD July 01, 2015 17:25
[2015-07-01] MEDS: OLANZapine 2.5 MG TAB GT SCH (20:19)
[2015-07-01] MEDS: ENOXAPARIN SODIUM 30 MG/0.3 ML SYRINGE SQ SCH (21:51)
[2015-07-02] VITALS (18 sets, daily range): BP systolic 107–159; BP diastolic 62–81; PULSE 70–97; RESP 18–28; TEMP 96.9–99; O2SAT 99–100
[2015-07-02] MEDS: INSULIN NovoLIN REGULAR SUPPLEMENTAL SCALE SQ SCH ×3 (04:49→18:00)
[2015-07-02] MEDS: RESP: TOBRAMYCIN SULFATE 80 MG/2 ML NEB NEB SCH ×2 (07:57→19:42)
[2015-07-02] MEDS: CHLORHEXIDINE 0.12% (ORAL KIT) 15 ML CUP MT SCH ×2 (08:34→22:00)
[2015-07-02] MEDS: PANTOPRAZOLE SODIUM 40 MG VIAL IV SCH (08:34)
[2015-07-02] MEDS: ARTIFICIAL TEARS OPTH SOLN 15 ML BTL EACH EYE SCH ×3 (08:34→18:07)
[2015-07-02] MEDS: SODIUM CHLORIDE 0.9% FLUSH 5 ML FLUSH IVF SCH ×2 (08:35→21:59)
[2015-07-02] MEDS: PARoxetine HCL 20 MG TAB G-TUBE SCH (10:21)
[2015-07-02] MEDS: LACTOBACILLUS ACIDOPHILUS TAB PO SCH ×3 (10:21→18:07)
[2015-07-02] MEDS: MIDODRINE 5 MG TAB G-TUBE SCH ×2 (10:22→21:59)
[2015-07-02] MEDS: QUEtiapine FUMARATE 25 MG TAB G-TUBE SCH (10:22)
[2015-07-02] MEDS: GABAPENTIN 300 MG CAP G-TUBE SCH ×2 (10:22→21:58)
[2015-07-02] MEDS: FLUCONAZOLE 200 MG TAB PEG SCH (10:24)
[2015-07-02] MEDS: clonazePAM 1 MG TAB PO SCH ×2 (14:05→21:58)
[2015-07-02] MEDS: CARBIDOPA/LEVODOPA 25 MG/100 MG TAB GT SCH ×2 (14:05→21:58)
--- NOTE | 2015-07-02 15:31 | HHI.PR ---
Subjective Remarks status quo CPAP trials Objective Vitals Vital Signs Date Time Temp Pulse Resp B/P Pulse Ox O2 Delivery O2 Flow Rate FiO2 07/02/15 14:00 70 07/02/15 12:30 100 35 07/02/15 12:00 96.9 74 19 123/66 100 07/02/15 12:00 74 07/02/15 10:00 74 07/02/15 08:01 100 35 07/02/15 08:00 98.0 97 27 159/70 99 07/02/15 08:00 87 07/02/15 06:00 91 07/02/15 04:00 98.9 84 28 125/81 100 07/02/15 04:00 84 07/02/15 03:21 100 35 07/02/15 02:00 89 07/02/15 00:24 99 35 07/02/15 00:00 90 07/02/15 00:00 98.7 90 24 145/68 100 07/01/15 22:00 82 07/01/15 21:51 100 35 07/01/15 20:00 98.6 80 26 125/60 100 07/01/15 20:00 80 07/01/15 19:33 100 35 07/01/15 18:00 76 07/01/15 16:00 98.2 93 28 113/58 100 07/01/15 16:00 93 07/01/15 15:40 100 35 I/O 07/01/15 07/01/15 07/01/15 07/02/15 07/02/15 07/02/15 07:00 15:00 23:00 07:00 15:00 23:00 Intake Total 987 ml 65 ml 66 ml 354 ml Output Total 1100 ml 1200 ml 420 ml 850 ml Balance -113 ml -1135 ml -354 ml -496 ml IV Total 35 ml 65 ml 66 ml 47 ml Tube Feeding 772 ml 147 ml Tube Irrigant 160 ml Other 180 ml Output Urine Total 1100 ml 1200 ml 420 ml 850 ml # Bowel Movements 3 3 2 1 Imaging Last Impressions Chest X-Ray 06/20/15 0600 Signed Impressions: Service Date/Time: Saturday, June 20, 2015 04:18 - CONCLUSION: No acute cardiopulmonary disease. Eugene Schmid MD Head CT 06/18/15 1903 Signed Impressions: Service Date/Time: June 19:31 - CONCLUSION: Diffuse atrophy unchanged. No acute intracranial findings. Kush Briscoe MD Abdomen/Pelvis CT 06/18/15 190 Signed Impressions: Service Date/Time: June 19:36 - CONCLUSION: 1. Chronic nonspecific urinary bladder wall thickening. Bladder collapsed with Valdez catheter in place. 2. Chronic bilateral mid to lower lung zone groundglass opacity. 3. Nonobstructing left renal calculus. 4. Distended rectum. Kush Briscoe MD Objective Remarks alert, awake, + tracking anicteric no oral thrush trach in place lungs no rales regular rhythm good bowel sounds, PEG in place extremities - no edema, right leg is crossed over the left leg- flexion contracted back- stage II decubitus (06/27 exam) valdez in place Valdez insert reason: Prolonged Immobilization Date of Insertion: June 24, 2015 A/P Assessment and Plan 55 years old male with tracheostomy and PEG tube [facility] resident admitted for: Severe sepsis improved Lactic acidosis improved Multiple resistant organism infection Chronic nonspecific urinary bladder wall thickening Valdez catheter in place UTI with ESBL Blood culture positive staph epidermidis in 1 tube,? 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 valdez was last changed 06/17- size #16 Status post vancomycin and meropenem per ID on tobramycin nebulizer on Diflucan till 07/03 Patient status post micafungin Monitor electrolytes and replace Acute on chronic respiratory failure on mechanical vent, weaning process ongoing Possible tracheobronchitis, ground glass opacity on chest x-ray, S/P tracheostomy -on diprivan drip tapered off - DC-started Clonazepam 1 mg tid 06/28 - Pulmonary ff for off vent trials - , vent management with C Pap trial during the day, awaiting trach sizing down to weaning trial - on nebulization, suctioning Chronic dementia, encephalopathy, Parkinson disease -Continue Zyprexa, paroxetine, Seroquel, Sinemet for agitation and dementia morphine by mouth, gabapentin, for pain management S/P PEG tube - tolerating tube feedings Stage II sacral decubitus ulcer- present on admission - wound care team consult chronic contractures - PT , may help spasticity and pain though these are chronic conditions Mild Malnutrition prealbumin 13, alb 2.9 DVT GI prophylaxis- on Lovenox. PPI Claire Queen MD July 02, 2015 15:31
--- NOTE | 2015-07-02 18:47 | HHI.PR ---
Subjective Remarks 54 YOWM with ChRF,Trach, multiple uti On Vent No fever Opens eyes, On CPAP 12/, Fi02 35% Tolerates well No new complaint Objective Vital Signs Vital Signs Date Time Temp Pulse Resp B/P Pulse Ox O2 Delivery O2 Flow Rate FiO2 07/02/15 18:00 80 07/02/15 16:00 77 07/02/15 16:00 97.9 77 22 107/62 100 07/02/15 15:31 100 35 07/02/15 14:00 70 07/02/15 12:30 100 35 07/02/15 12:00 96.9 74 19 123/66 100 07/02/15 12:00 74 07/02/15 10:00 74 07/02/15 08:01 100 35 07/02/15 08:00 98.0 97 27 159/70 99 07/02/15 08:00 87 07/02/15 06:00 91 07/02/15 04:00 98.9 84 28 125/81 100 07/02/15 04:00 84 07/02/15 03:21 100 35 07/02/15 02:00 89 07/02/15 00:24 99 35 07/02/15 00:00 90 07/02/15 00:00 98.7 90 24 145/68 100 07/01/15 22:00 82 07/01/15 21:51 100 35 07/01/15 20:00 98.6 80 26 125/60 100 07/01/15 20:00 80 07/01/15 19:33 100 35 I/O 07/01/15 07/01/15 07/01/15 07/02/15 07/02/15 07/02/15 07:00 15:00 23:00 07:00 15:00 23:00 Intake Total 987 ml 65 ml 66 ml 354 ml Output Total 1100 ml 1200 ml 420 ml 850 ml Balance -113 ml -1135 ml -354 ml -496 ml IV Total 35 ml 65 ml 66 ml 47 ml Tube Feeding 772 ml 147 ml Tube Irrigant 160 ml Other 180 ml Output Urine Total 1100 ml 1200 ml 420 ml 850 ml # Bowel Movements 3 3 2 1 Objective Remarks GENERAL: MBMN male on Vent. SKIN: Warm and dry. HEAD: Normocephalic. EYES: No scleral icterus. No injection or drainage. NECK: Supple, trachea midline. No JVD or lymphadenopathy. has trach CARDIOVASCULAR: Regular rate and rhythm without murmurs, gallops, or rubs. RESPIRATORY: Breath sounds equal bilaterally. No accessory muscle use. GASTROINTESTINAL: Abdomen soft, non-tender, nondistended. PEG tube in place MUSCULOSKELETAL: No cyanosis, or edema. BACK: Nontender without obvious deformity. No CVA tenderness. A/P Assessment and Plan VDRF S/P Trach Parkinson's diasease Dementia UTI PLAN: Vent Support CPAP tral in AM ABX MerCamilla bellolucan and Tobra nebs TF Cont CPAP 12/5 T-tube trial in AM Severiano Ag MD July 02, 2015 18:47
[2015-07-02] MEDS: ENOXAPARIN SODIUM 30 MG/0.3 ML SYRINGE SQ SCH (21:58)
[2015-07-02] MEDS: OLANZapine 2.5 MG TAB GT SCH (21:58)
[2015-07-03] VITALS (16 sets, daily range): BP systolic 105–138; BP diastolic 59–82; PULSE 71–95; RESP 17–33; TEMP 97.6–99.4; O2SAT 98–100
[2015-07-03] MEDS: CHLORHEXIDINE GLUCONATE 2 % 1 PACK (2 CLOTHS) TOP SCH (04:00)
[2015-07-03] MEDS: CARBIDOPA/LEVODOPA 25 MG/100 MG TAB GT SCH ×3 (05:06→21:36)
[2015-07-03] MEDS: clonazePAM 1 MG TAB PO SCH ×3 (05:06→21:36)
[2015-07-03] MEDS: INSULIN NovoLIN REGULAR SUPPLEMENTAL SCALE SQ SCH ×4 (05:06→17:37)
[2015-07-03] MEDS: RESP: TOBRAMYCIN SULFATE 80 MG/2 ML NEB NEB SCH ×2 (07:18→20:00)
[2015-07-03] MEDS: FLUCONAZOLE 200 MG TAB PEG SCH (08:56)
[2015-07-03] MEDS: QUEtiapine FUMARATE 25 MG TAB G-TUBE SCH (08:56)
[2015-07-03] MEDS: GABAPENTIN 300 MG CAP G-TUBE SCH ×2 (08:57→21:37)
[2015-07-03] MEDS: LACTOBACILLUS ACIDOPHILUS TAB PO SCH ×3 (08:57→17:37)
[2015-07-03] MEDS: PANTOPRAZOLE SODIUM 40 MG VIAL IV SCH (08:57)
[2015-07-03] MEDS: ARTIFICIAL TEARS OPTH SOLN 15 ML BTL EACH EYE SCH ×3 (08:57→17:37)
[2015-07-03] MEDS: PARoxetine HCL 20 MG TAB G-TUBE SCH (08:58)
[2015-07-03] MEDS: CHLORHEXIDINE 0.12% (ORAL KIT) 15 ML CUP MT SCH ×2 (08:58→22:04)
[2015-07-03] MEDS: MIDODRINE 5 MG TAB G-TUBE SCH ×2 (08:58→21:37)
[2015-07-03] MEDS: SODIUM CHLORIDE 0.9% FLUSH 5 ML FLUSH IVF SCH ×2 (08:58→21:37)
--- NOTE | 2015-07-03 16:11 | HHI.PR ---
Subjective Remarks on t piece since this 11 am- at 35% tolerating well Objective Vitals Vital Signs Date Time Temp Pulse Resp B/P Pulse Ox O2 Delivery O2 Flow Rate FiO2 07/03/15 14:00 80 07/03/15 12:00 35 07/03/15 12:00 76 07/03/15 12:00 98.5 76 24 115/64 100 07/03/15 11:36 100 T-piece 6.00 35 07/03/15 10:00 86 07/03/15 08:00 98.6 79 23 124/82 100 07/03/15 08:00 73 07/03/15 08:00 35 07/03/15 07:18 100 35 07/03/15 06:00 73 07/03/15 04:00 73 07/03/15 04:00 98.2 73 25 131/72 100 07/03/15 04:00 35 07/03/15 03:46 98 35 07/03/15 02:00 71 07/03/15 00:00 98.3 89 17 116/70 100 07/03/15 00:00 35 07/03/15 00:00 89 07/02/15 22:00 87 07/02/15 20:00 35 07/02/15 20:00 84 07/02/15 20:00 99.0 84 18 116/67 100 07/02/15 19:42 100 35 07/02/15 18:00 80 I/O 07/02/15 07/02/15 07/02/15 07/03/15 07/03/15 07/03/15 07:00 15:00 23:00 07:00 15:00 23:00 Intake Total 66 ml 354 ml 958 ml 433 ml 588 ml Output Total 420 ml 850 ml 900 ml 400 ml 475 ml Balance -354 ml -496 ml 58 ml 33 ml 113 ml IV Total 66 ml 47 ml 88 ml 35 ml 42 ml Tube Feeding 147 ml 670 ml 298 ml 426 ml Tube Irrigant 160 ml 120 ml Other 200 ml 100 ml Output Urine Total 420 ml 850 ml 900 ml 400 ml 475 ml # Bowel Movements 2 1 1 0 Imaging Last Impressions Chest X-Ray 06/20/15 0600 Signed Impressions: Service Date/Time: Saturday, June 20, 2015 04:18 - CONCLUSION: No acute cardiopulmonary disease. K. Blaine Schmid MD Head CT 06/18/151902 Signed Impressions: Service Date/Time: June 19:31 - CONCLUSION: Diffuse atrophy unchanged. No acute intracranial findings. Kush Briscoe MD Abdomen/Pelvis CT 06/18/151902 Signed Impressions: Service Date/Time: , June 18, 2015 19:36 - CONCLUSION: 1. Chronic nonspecific urinary bladder wall thickening. Bladder collapsed with Valdez catheter in place. 2. Chronic bilateral mid to lower lung zone groundglass opacity. 3. Nonobstructing left renal calculus. 4. Distended rectum. Kush Briscoe MD Objective Remarks alert, awake, anicteric no oral thrush trach in place lungs no rales regular rhythm good bowel sounds, PEG in place extremities - no edema, right leg is crossed over the left leg- flexion contracted both upper extremities- moves spontaneously back- stage II decubitus (06/27 exam) valdez in place Date of Insertion: June 24, 2015 A/P Assessment and Plan 55 years old male with tracheostomy and PEG tube [facility] admitted for: Severe sepsis improved Lactic acidosis improved Multiple resistant organism infection Chronic nonspecific urinary bladder wall thickening Valdez catheter in place UTI with ESBL Blood culture positive staph epidermidis in 1 tube,? 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 valdez was last changed 06/17- size #16 Status post vancomycin and meropenem per ID on tobramycin nebulizer on Diflucan till 07/03 Patient status post micafungin Monitor electrolytes and replace Acute on chronic respiratory failure on mechanical vent, weaning process ongoing Possible tracheobronchitis, ground glass opacity on chest x-ray, S/P tracheostomy -on diprivan drip tapered off - DC-started Clonazepam 1 mg tid 06/28 - Pulmonary ff for off vent trials - , vent management with C Pap trial during the day, awaiting trach sizing down to weaning trial - on nebulization, suctioning Chronic dementia, encephalopathy, Parkinson disease -Continue Zyprexa, paroxetine, Seroquel, Sinemet for agitation and dementia morphine by mouth, gabapentin, for pain management S/P PEG tube - tolerating tube feedings Stage II sacral decubitus ulcer- present on admission - wound care team consult chronic contractures - PT notes reviewed we will request staff to do- range of motion exercise q shift, Mild Malnutrition prealbumin 13, alb 2.9 DVT GI prophylaxis- on Lovenox. PPI Claire Queen MD July 03, 2015 16:11
--- NOTE | 2015-07-03 17:34 | HHI.PR ---
Subjective Remarks 54 YOWM with ChRF,Trach, multiple uti On Vent No fever Opens eyes, On CPAP /, Fi02 35% Tolerates well No new complaint Becomes techpnoic intermittentaly Objective Vital Signs Vital Signs Date Time Temp Pulse Resp B/P Pulse Ox O2 Delivery O2 Flow Rate FiO2 07/03/15 14:00 80 07/03/15 12:00 35 07/03/15 12:00 76 07/03/15 12:00 98.5 76 24 115/64 100 07/03/15 11:36 100 T-piece 6.00 35 07/03/15 10:00 86 07/03/15 08:00 98.6 79 23 124/82 100 07/03/15 08:00 73 07/03/15 08:00 35 07/03/15 07:18 100 35 07/03/15 06:00 73 07/03/15 04:00 73 07/03/15 04:00 98.2 73 25 131/72 100 07/03/15 04:00 35 07/03/15 03:46 98 35 07/03/15 02:00 71 07/03/15 00:00 98.3 89 17 116/70 100 07/03/15 00:00 35 07/03/15 00:00 89 07/02/15 22:00 87 07/02/15 20:00 35 07/02/15 20:00 84 07/02/15 20:00 99.0 84 18 116/67 100 07/02/15 19:42 100 35 07/02/15 18:00 80 I/O 07/02/15 07/02/15 07/02/15 07/03/15 07/03/15 07/03/15 07:00 15:00 23:00 07:00 15:00 23:00 Intake Total 66 ml 354 ml 958 ml 433 ml 588 ml Output Total 420 ml 850 ml 900 ml 400 ml 475 ml Balance -354 ml -496 ml 58 ml 33 ml 113 ml IV Total 66 ml 47 ml 88 ml 35 ml 42 ml Tube Feeding 147 ml 670 ml 298 ml 426 ml Tube Irrigant 160 ml 120 ml Other 200 ml 100 ml Output Urine Total 420 ml 850 ml 900 ml 400 ml 475 ml # Bowel Movements 2 1 1 0 Objective Remarks GENERAL: MBMN male on Vent. SKIN: Warm and dry. HEAD: Normocephalic. EYES: No scleral icterus. No injection or drainage. NECK: Supple, trachea midline. No JVD or lymphadenopathy. has trach CARDIOVASCULAR: Regular rate and rhythm without murmurs, gallops, or rubs. RESPIRATORY: Breath sounds equal bilaterally. No accessory muscle use. GASTROINTESTINAL: Abdomen soft, non-tender, nondistended. PEG tube in place MUSCULOSKELETAL: No cyanosis, or edema. BACK: Nontender without obvious deformity. No CVA tenderness. A/P Assessment and Plan VDRF S/P Trach Parkinson's diasease Dementia UTI PLAN: Vent Support CPAP tral in AM ABX Meropenm, Diflucan and Tobra nebs TF Cont CPAP 12/5 T-tube trial . Severiano Ag MD July 03, 2015 17:34
[2015-07-03] MEDS: OLANZapine 2.5 MG TAB GT SCH (21:36)
[2015-07-03] MEDS: ENOXAPARIN SODIUM 30 MG/0.3 ML SYRINGE SQ SCH (21:37)
[2015-07-04] VITALS (20 sets, daily range): BP systolic 104–166; BP diastolic 58–86; PULSE 77–108; RESP 20–35; TEMP 97.5–99.3; O2SAT 98–100
[2015-07-04] MEDS: CHLORHEXIDINE GLUCONATE 2 % 1 PACK (2 CLOTHS) TOP SCH ×2 (04:00→19:02)
[2015-07-04] MEDS: clonazePAM 1 MG TAB PO SCH ×3 (05:17→20:28)
[2015-07-04] MEDS: CARBIDOPA/LEVODOPA 25 MG/100 MG TAB GT SCH ×3 (05:17→20:28)
[2015-07-04] MEDS: INSULIN NovoLIN REGULAR SUPPLEMENTAL SCALE SQ SCH ×2 (05:17)
[2015-07-04] MEDS: ACETAMINOPHEN 650 MG/20.3 ML UDC TUBE PRN (06:06)
[2015-07-04] MEDS ORDERED: SODIUM CHLORID 0.9% 500 ML INJ 500 ML IV ONE (06:45)
[2015-07-04] MEDS: RESP: ALBUTEROL 2.5 MG/3 ML NEB (PRN) INH ×2 (07:27→20:00)
[2015-07-04] MEDS: RESP: TOBRAMYCIN SULFATE 80 MG/2 ML NEB NEB SCH ×2 (07:58→20:01)
[2015-07-04] MEDS: PARoxetine HCL 20 MG TAB G-TUBE SCH (09:14)
[2015-07-04] MEDS: LACTOBACILLUS ACIDOPHILUS TAB PO SCH ×3 (09:14→18:06)
[2015-07-04] MEDS: GABAPENTIN 300 MG CAP G-TUBE SCH ×2 (09:14→20:27)
[2015-07-04] MEDS: MIDODRINE 5 MG TAB G-TUBE SCH ×2 (09:15→20:28)
[2015-07-04] MEDS: PANTOPRAZOLE SODIUM 40 MG VIAL IV SCH (09:15)
[2015-07-04] MEDS: SODIUM CHLORIDE 0.9% FLUSH 5 ML FLUSH IVF SCH ×2 (09:15→20:28)
[2015-07-04] MEDS: QUEtiapine FUMARATE 25 MG TAB G-TUBE SCH (09:15)
[2015-07-04] MEDS: ARTIFICIAL TEARS OPTH SOLN 15 ML BTL EACH EYE SCH ×3 (09:16→18:06)
[2015-07-04] MEDS: CHLORHEXIDINE 0.12% (ORAL KIT) 15 ML CUP MT SCH ×2 (09:16→20:00)
--- NOTE | 2015-07-04 09:46 | HHI.PR ---
Subjective Remarks The pt appeared to be resting comfortably. No acute concerns per nursing. Objective Vitals Vital Signs Date Time Temp Pulse Resp B/P Pulse Ox O2 Delivery O2 Flow Rate FiO2 07/04/15 07:30 100 35 07/04/15 06:00 103 07/04/15 04:00 35 07/04/15 04:00 99.3 103 33 140/86 100 07/04/15 04:00 103 07/04/15 02:00 97 07/04/15 01:14 100 35 07/04/15 00:00 93 07/04/15 00:00 99.0 93 35 131/85 100 07/04/15 00:00 35 07/03/15 22:00 95 07/03/15 20:00 35 07/03/15 20:00 87 07/03/15 20:00 99.4 81 33 138/79 100 07/03/15 19:57 100 35 07/03/15 18:00 82 07/03/15 16:00 35 07/03/15 16:00 78 07/03/15 16:00 97.6 78 31 105/59 100 07/03/15 14:00 80 07/03/15 12:00 35 07/03/15 12:00 76 07/03/15 12:00 98.5 76 24 115/64 100 07/03/15 11:36 100 T-piece 6.00 35 07/03/15 10:00 86 I/O 07/03/15 07/03/15 07/03/15 07/04/15 07/04/15 07/04/15 07:00 15:00 23:00 07:00 15:00 23:00 Intake Total 433 ml 588 ml 687 ml 593 ml Output Total 400 ml 475 ml 400 ml 350 ml Balance 33 ml 113 ml 287 ml 243 ml IV Total 35 ml 42 ml 12 ml 35 ml Tube Feeding 298 ml 426 ml 575 ml 458 ml Tube Irrigant 120 ml Other 100 ml 100 ml 100 ml Output Urine Total 400 ml 475 ml 400 ml 350 ml # Bowel Movements 1 0 1 Imaging Last Impressions Chest X-Ray 06/20/15 0600 Signed Impressions: Service Date/Time: Saturday, June 20, 2015 04:18 - CONCLUSION: No acute cardiopulmonary disease. Eugene Schmid MD Head CT 06/18/151902 Signed Impressions: Service Date/Time: June 19:31 - CONCLUSION: Diffuse atrophy unchanged. No acute intracranial findings. Kush Briscoe MD Abdomen/Pelvis CT 06/18/151902 Signed Impressions: Service Date/Time: June 19:36 - CONCLUSION: 1. Chronic nonspecific urinary bladder wall thickening. Bladder collapsed with Putnam catheter in place. 2. Chronic bilateral mid to lower lung zone groundglass opacity. 3. Nonobstructing left renal calculus. 4. Distended rectum. Kush Briscoe MD Objective Remarks GENERAL: Chronically ill-appearing, frail HEAD: Atraumatic. Normocephalic. EYES: Pupils equal and round. No injection or drainage. ENT: Moist mucous membranes NECK: Trachea midline. Trach in place. CARDIOVASCULAR: Regular rate and rhythm. No murmur appreciated. RESPIRATORY: Clear to auscultation. Breath sounds equal bilaterally. GASTROINTESTINAL: Abdomen soft, non-tender, nondistended. PEG in place. NEUROLOGICAL: Does not answer questions or respond, does not follow commands EXTREMITIES: no edema, contractions noted. BACK: stage II decubitus. Medications and IVs Current Medications Medications (Trade) Dose Ordered Sig/Jassi Route Start Time Stop Time Status Last Admin (NS Flush) 2 ml UNSCH PRN IVF 06/18/15 21:30 06/24/15 09:19 (NS Flush) 2 ml BID IVF 06/19/15 09:00 07/04/15 09:15 (Tylenol 650 Mg/ 20 ml Liq) 650 mg Q6H PRN TUBE 06/18/15 21:30 07/04/15 06:06 (Protonix Inj) 40 mg DAILY IV 06/19/15 09:00 07/04/15 09:15 (Tears Naturale Opth Soln) 1 drop TID EACH EYE 06/19/15 09:00 07/04/15 09:16 (Zofran Inj) 4 mg Q6H PRN IV 06/18/15 21:30 (Lovenox Inj) 30 mg Q24H SQ 06/18/15 22:00 07/03/15 21:37 Miscellaneous Information 1 Q361D XX 06/18/15 21:30 06/18/15 21:30 (Chlorhexidine 2% Cloth) Taper DAILY@04 TOP 06/19/15 04:00 06/14/16 03:59 07/01/15 03:13 Chlorhexidine Gluconate 3 pack 3 pack UNSCH PRN TOP 06/18/15 21:30 Potassium Chloride 100 ml @ 50 mls/hr Q2H PRN IV 06/18/15 21:45 (KCl 20 Meq Premix Inj) 100 ml @ 50 mls/hr Q2H PRN IV 06/18/15 21:45 06/21/15 17:45 Potassium Chloride 40 meq 40 meq UNSCH PRN PO/TUBE 06/18/15 21:45 Potassium Chloride 100 ml @ 25 mls/hr UNSCH PRN IV 06/18/15 21:45 Potassium Chloride 100 ml @ 50 mls/hr Q2H PRN IV 06/18/15 21:45 06/20/15 12:47 (Magnesium Sulfate Inj/NS Inj) 100 ml @ 50 mls/hr UNSCH PRN IV 06/18/15 21:45 Magnesium Oxide 800 mg 800 mg UNSCH PRN PO 06/18/15 21:45 (Magnesium Sulfate Inj/NS Inj) 100 ml @ 50 mls/hr UNSCH PRN IV 06/18/15 21:45 Potassium Phosphate 2000 mg 2,000 mg Q4H PRN PO 06/18/15 21:45 (Sodium Phosphate Inj/NS 250 ml Inj) 250 ml @ 42 mls/hr UNSCH PRN IV 06/18/15 21:45 (KCl 40 Meq/30 ml Liq) 40 meq UNSCH PRN PO/TUBE 06/18/15 21:45 Potassium Phosphate 2000 mg 2,000 mg UNSCH PRN PO/TUBE 06/18/15 21:45 (Potassium Phosphate Inj/NS 250 ml Inj) 260 ml @ 42 mls/hr UNSCH PRN IV 06/18/15 21:45 (D50w (Vial) Inj) 25 ml UNSCH PRN IV PUSH 06/18/15 21:45 (Glucagon Inj) 1 mg UNSCH PRN OTHER 06/18/15 21:45 (NovoLIN R SUPPLEMENTAL SCALE) 1 Q6HR SQ 06/19/15 00:00 (Sinemet 25-100 Mg) 1 tab Q8HR GT 06/19/15 06:00 07/04/15 05:17 (Neurontin) 300 mg BID G-TUBE 06/19/15 09:00 07/04/15 09:14 (Lactinex) 1 tab TID PO 06/19/15 09:00 07/04/15 09:14 (Proamatine) 2.5 mg BID G-TUBE 06/19/15 09:00 07/04/15 09:15 (ZyPREXA) 2.5 mg HS GT 06/19/15 21:00 07/03/15 21:36 (Paxil) 20 mg DAILY G-TUBE 06/19/15 09:00 07/04/15 09:14 (SEROquel) 12.5 mg DAILY G-TUBE 06/19/15 09:00 07/04/15 09:15 Miscellaneous 1 ea 1 ea UNSCH PRN OTHER 06/19/15 03:30 06/28/15 09:35 (Diprivan 1000 Mg/100ml Inj) 100 ml @ 0 mls/hr TITRATE IV 06/19/15 12:30 06/28/15 13:11 (Peridex 0.12% Liq) 15 ml BID@08,20 MT 06/19/15 20:00 07/04/15 09:16 (Roxanol Liq) 5 mg Q4H PRN PO 06/20/15 20:45 06/30/15 23:45 (KlonoPIN) 1 mg Q8HR PO 06/28/15 14:00 07/04/15 05:17 Date of Insertion: June 24, 2015 A/P Assessment and Plan Sepsis Blood culture positive with staph epidermidis and coag negative staph, ? contamination. 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 UTI with ESBL. ID was consulted. Putnam was last changed 06/17- size #16. Status post vancomycin, meropenem and micafungin per ID. - continue tobramycin nebulizer. - on Diflucan till 07/03. Will d/c at this time. - follow up with ID. Acute on chronic respiratory failure S/p trach, on mechanical vent. Weaning process ongoing. Possible tracheobronchitis, ground glass opacity on chest x-ray. Pulmonary consult appreciated. Diprivan drip tapered off. Started Clonazepam 1 mg tid 06/28. - Pulmonary following for weaning trials. - vent management with C Pap trial during the day, awaiting trach downsizing. - on nebulization, suctioning. Chronic dementia, encephalopathy, Parkinson disease - Continue Zyprexa, paroxetine, Seroquel, Sinemet for agitation and dementia. S/P PEG tube - tolerating tube feedings. Stage II sacral decubitus ulcer Present on admission. - wound care team consult. Chronic contractures PT notes reviewed. - we will request staff to do range of motion exercise q shift. DVT GI prophylaxis- on Lovenox. PPI Discharge Planning Awaiting clinical improvement. Salazar Santa DO July 04, 2015 09:46
[2015-07-04] MEDS: ENOXAPARIN SODIUM 30 MG/0.3 ML SYRINGE SQ SCH (20:27)
[2015-07-04] MEDS: OLANZapine 2.5 MG TAB GT SCH (20:28)
[2015-07-04] MEDS: MORPHINE SULFATE ORAL SOLN 10 MG/0.5 ML SYRINGE PO PRN (20:28)
[2015-07-05] VITALS (19 sets, daily range): BP systolic 108–137; BP diastolic 61–80; PULSE 77–99; RESP 24–30; TEMP 96.7–99.4; O2SAT 97–100
[2015-07-05] MEDS: clonazePAM 1 MG TAB PO SCH ×3 (03:38→20:40)
[2015-07-05] MEDS: CARBIDOPA/LEVODOPA 25 MG/100 MG TAB GT SCH ×3 (03:38→20:45)
[2015-07-05 07:31] LABS: HEMATOCRIT 32.5 % (39.0-51.0); MEAN CORPUSCULAR HEMOGLOBIN 29.6 PG (27.0-34.0); MEAN CORPUSCULAR HGB CONC 32.5 % (32.0-36.0); PLATELET COUNT 202 TH/MM3 (150-450); RED BLOOD COUNT 3.57 MIL/MM3 (4.50-5.90); RED CELL DISTRIBUTION WIDTH 13.9 % (11.6-17.2); REVIEW FLAG FINAL; WHITE BLOOD COUNT 8.9 TH/MM3 (4.0-11.0)
[2015-07-05 07:44] LABS: BICARBONATE 30.3 MEQ/L (21.0-32.0)
[2015-07-05 07:45] LABS: POTASSIUM 4.6 MEQ/L (3.5-5.1)
[2015-07-05] MEDS: RESP: TOBRAMYCIN SULFATE 80 MG/2 ML NEB NEB SCH ×2 (08:09→19:54)
[2015-07-05] MEDS: CHLORHEXIDINE 0.12% (ORAL KIT) 15 ML CUP MT SCH ×2 (09:51→20:00)
[2015-07-05] MEDS: QUEtiapine FUMARATE 25 MG TAB G-TUBE SCH (09:51)
[2015-07-05] MEDS: GABAPENTIN 300 MG CAP G-TUBE SCH ×2 (09:51→20:40)
[2015-07-05] MEDS: PANTOPRAZOLE SODIUM 40 MG VIAL IV SCH (09:51)
[2015-07-05] MEDS: PARoxetine HCL 20 MG TAB G-TUBE SCH (09:51)
[2015-07-05] MEDS: LACTOBACILLUS ACIDOPHILUS TAB PO SCH ×3 (09:51→17:04)
[2015-07-05] MEDS: MIDODRINE 5 MG TAB G-TUBE SCH ×2 (09:51→20:40)
[2015-07-05] MEDS: SODIUM CHLORIDE 0.9% FLUSH 5 ML FLUSH IVF SCH ×2 (09:51→20:40)
[2015-07-05] MEDS: ARTIFICIAL TEARS OPTH SOLN 15 ML BTL EACH EYE SCH ×3 (09:52→17:04)
--- NOTE | 2015-07-05 15:00 | HHI.PR ---
Subjective Remarks Per nursing the pt was doing well on a T-piece. No acute concerns. Family at the bedside. Objective Vitals Vital Signs Date Time Temp Pulse Resp B/P Pulse Ox O2 Delivery O2 Flow Rate FiO2 07/05/15 14:00 77 07/05/15 12:00 96.7 86 26 122/66 100 07/05/15 12:00 80 07/05/15 11:13 40 07/05/15 11:13 99 T-piece 40 07/05/15 10:00 85 07/05/15 08:00 35 07/05/15 08:00 99.4 96 30 132/72 97 07/05/15 08:00 96 07/05/15 07:37 100 35 07/05/15 06:00 92 07/05/15 04:15 100 35 07/05/15 04:00 35 07/05/15 04:00 97.8 84 26 115/76 100 07/05/15 04:00 84 07/05/15 02:00 86 07/05/15 00:56 100 35 07/05/15 00:00 35 07/05/15 00:00 83 07/05/15 00:00 97.9 83 24 108/70 100 07/04/15 22:24 100 35 07/04/15 22:00 87 07/04/15 20:00 89 07/04/15 20:00 97.5 89 24 122/59 100 07/04/15 20:00 35 07/04/15 19:59 100 35 07/04/15 19:55 100 T-piece 40 07/04/15 18:00 80 07/04/15 16:00 80 07/04/15 16:00 97.6 77 20 115/58 100 I/O 07/04/15 07/04/15 07/04/15 07/05/15 07/05/15 07/05/15 07:00 15:00 23:00 07:00 15:00 23:00 Intake Total 593 ml 1463 ml 306 ml 556 ml 1076 ml Output Total 350 ml 450 ml 550 ml 320 ml 525 ml Balance 243 ml 1013 ml -244 ml 236 ml 551 ml IV Total 35 ml 524 ml 66 ml 44 ml 58 ml Tube Feeding 458 ml 639 ml 240 ml 512 ml 778 ml Other 100 ml 300 ml 240 ml Output Urine Total 350 ml 450 ml 550 ml 320 ml 525 ml # Bowel Movements 1 1 1 Result Diagram: 07/05/15 0600 07/05/15599 Imaging Last Impressions Chest X-Ray 06/20/15599 Signed Impressions: Service Date/Time: Saturday, June 20, 2015 04:18 - CONCLUSION: No acute cardiopulmonary disease. Eugene Schmid MD Head CT 06/18/151902 Signed Impressions: Service Date/Time: June 19:31 - CONCLUSION: Diffuse atrophy unchanged. No acute intracranial findings. Kush Briscoe MD Abdomen/Pelvis CT 06/18/151902 Signed Impressions: Service Date/Time: June 19:36 - CONCLUSION: 1. Chronic nonspecific urinary bladder wall thickening. Bladder collapsed with Putnam catheter in place. 2. Chronic bilateral mid to lower lung zone groundglass opacity. 3. Nonobstructing left renal calculus. 4. Distended rectum. Kush Briscoe MD Objective Remarks GENERAL: Chronically ill-appearing, frail HEAD: Atraumatic. Normocephalic. EYES: Pupils equal and round. No injection or drainage. ENT: Moist mucous membranes NECK: Trachea midline. Trach in place. CARDIOVASCULAR: Regular rate and rhythm. No murmur appreciated. RESPIRATORY: Clear to auscultation. Breath sounds equal bilaterally. GASTROINTESTINAL: Abdomen soft, non-tender, nondistended. PEG in place. NEUROLOGICAL: Does not answer questions or respond, does not follow commands EXTREMITIES: no edema, contractions noted. BACK: stage II decubitus. Medications and IVs Current Medications Medications (Trade) Dose Ordered Sig/Jassi Route Start Time Stop Time Status Last Admin (NS Flush) 2 ml UNSCH PRN IVF 06/18/15 21:30 06/24/15 09:19 (NS Flush) 2 ml BID IVF 06/19/15 09:00 07/05/15 09:51 (Tylenol 650 Mg/ 20 ml Liq) 650 mg Q6H PRN TUBE 06/18/15 21:30 07/04/15 06:06 (Protonix Inj) 40 mg DAILY IV 06/19/15 09:00 07/05/15 09:51 (Tears Naturale Opth Soln) 1 drop TID EACH EYE 06/19/15 09:00 07/05/15 14:09 (Zofran Inj) 4 mg Q6H PRN IV 06/18/15 21:30 (Lovenox Inj) 30 mg Q24H SQ 06/18/15 22:00 07/04/15 20:27 Miscellaneous Information 1 Q361D XX 06/18/15 21:30 06/18/15 21:30 (Chlorhexidine 2% Cloth) Taper DAILY@04 TOP 06/19/15 04:00 06/14/16 03:59 07/01/15 03:13 Chlorhexidine Gluconate 3 pack 3 pack UNSCH PRN TOP 06/18/15 21:30 Potassium Chloride 100 ml @ 50 mls/hr Q2H PRN IV 06/18/15 21:45 (KCl 20 Meq Premix Inj) 100 ml @ 50 mls/hr Q2H PRN IV 06/18/15 21:45 06/21/15 17:45 Potassium Chloride 40 meq 40 meq UNSCH PRN PO/TUBE 06/18/15 21:45 Potassium Chloride 100 ml @ 25 mls/hr UNSCH PRN IV 06/18/15 21:45 Potassium Chloride 100 ml @ 50 mls/hr Q2H PRN IV 06/18/15 21:45 06/20/15 12:47 (Magnesium Sulfate Inj/NS Inj) 100 ml @ 50 mls/hr UNSCH PRN IV 06/18/15 21:45 Magnesium Oxide 800 mg 800 mg UNSCH PRN PO 06/18/15 21:45 (Magnesium Sulfate Inj/NS Inj) 100 ml @ 50 mls/hr UNSCH PRN IV 06/18/15 21:45 Potassium Phosphate 2000 mg 2,000 mg Q4H PRN PO 06/18/15 21:45 (Sodium Phosphate Inj/NS 250 ml Inj) 250 ml @ 42 mls/hr UNSCH PRN IV 06/18/15 21:45 (KCl 40 Meq/30 ml Liq) 40 meq UNSCH PRN PO/TUBE 06/18/15 21:45 Potassium Phosphate 2000 mg 2,000 mg UNSCH PRN PO/TUBE 06/18/15 21:45 (Potassium Phosphate Inj/NS 250 ml Inj) 260 ml @ 42 mls/hr UNSCH PRN IV 06/18/15 21:45 (D50w (Vial) Inj) 25 ml UNSCH PRN IV PUSH 06/18/15 21:45 (Glucagon Inj) 1 mg UNSCH PRN OTHER 06/18/15 21:45 (Sinemet 25-100 Mg) 1 tab Q8HR GT 06/19/15 06:00 07/05/15 14:09 (Neurontin) 300 mg BID G-TUBE 06/19/15 09:00 07/05/15 09:51 (Lactinex) 1 tab TID PO 06/19/15 09:00 07/05/15 14:09 (Proamatine) 2.5 mg BID G-TUBE 06/19/15 09:00 07/05/15 09:51 (ZyPREXA) 2.5 mg HS GT 06/19/15 21:00 07/04/15 20:28 (Paxil) 20 mg DAILY G-TUBE 06/19/15 09:00 07/05/15 09:51 (SEROquel) 12.5 mg DAILY G-TUBE 06/19/15 09:00 07/05/15 09:51 Miscellaneous 1 ea 1 ea UNSCH PRN OTHER 06/19/15 03:30 06/28/15 09:35 (Diprivan 1000 Mg/100ml Inj) 100 ml @ 0 mls/hr TITRATE IV 06/19/15 12:30 06/28/15 13:11 (Peridex 0.12% Liq) 15 ml BID@08,20 MT 06/19/15 20:00 07/05/15 09:51 (Roxanol Liq) 5 mg Q4H PRN PO 06/20/15 20:45 07/04/15 20:28 (KlonoPIN) 1 mg Q8HR PO 06/28/15 14:00 07/05/15 14:09 Date of Insertion: June 24, 2015 A/P Assessment and Plan Sepsis Blood culture positive with staph epidermidis and coag negative staph, ? contamination. 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 UTI with ESBL. ID was consulted. Putnam was last changed 06/17- size #16. Status post vancomycin, meropenem and micafungin per ID. - continue tobramycin nebulizer. - on Diflucan till 07/03. Will d/c at this time. - follow up with ID. Acute on chronic respiratory failure S/p trach, on mechanical vent. Weaning process ongoing. Possible tracheobronchitis, ground glass opacity on chest x-ray. Pulmonary consult appreciated. Diprivan drip tapered off. Started Clonazepam 1 mg tid 06/28. - Pulmonary following for weaning trials. - vent management with C Pap trial during the day, awaiting trach downsizing. - on nebulization, suctioning. Chronic dementia, encephalopathy, Parkinson disease - Continue Zyprexa, paroxetine, Seroquel, Sinemet for agitation and dementia. S/P PEG tube - tolerating tube feedings. Stage II sacral decubitus ulcer Present on admission. - wound care team consult. Chronic contractures PT notes reviewed. - we will request staff to do range of motion exercise q shift. DVT GI prophylaxis- on Lovenox. PPI Discharge Planning Awaiting clinical improvement. Salazar Santa DO July 05, 2015 15:00
[2015-07-05] MEDS: RESP: ALBUTEROL 2.5 MG/3 ML NEB (PRN) INH (19:54)
[2015-07-05] MEDS: ENOXAPARIN SODIUM 30 MG/0.3 ML SYRINGE SQ SCH (20:40)
[2015-07-05] MEDS: MORPHINE SULFATE ORAL SOLN 10 MG/0.5 ML SYRINGE PO PRN (20:40)
[2015-07-05] MEDS: OLANZapine 2.5 MG TAB GT SCH (20:40)
[2015-07-05] MEDS: CHLORHEXIDINE GLUCONATE 2 % 1 PACK (2 CLOTHS) TOP SCH (23:59)
[2015-07-06] VITALS (22 sets, daily range): BP systolic 114–137; BP diastolic 60–74; PULSE 74–92; RESP 20–29; TEMP 98–99.5; O2SAT 95–100
[2015-07-06] MEDS: MORPHINE SULFATE ORAL SOLN 10 MG/0.5 ML SYRINGE PO PRN (00:31)
[2015-07-06] MEDS: RESP: ALBUTEROL 2.5 MG/3 ML NEB (PRN) INH (02:04)
[2015-07-06] MEDS: clonazePAM 1 MG TAB PO SCH ×3 (03:24→22:22)
[2015-07-06] MEDS: CARBIDOPA/LEVODOPA 25 MG/100 MG TAB GT SCH ×3 (03:24→22:22)
[2015-07-06] MEDS: RESP: TOBRAMYCIN SULFATE 80 MG/2 ML NEB NEB SCH ×2 (07:21→20:23)
[2015-07-06] MEDS: CHLORHEXIDINE 0.12% (ORAL KIT) 15 ML CUP MT SCH ×2 (08:12→19:44)
[2015-07-06] MEDS: GABAPENTIN 300 MG CAP G-TUBE SCH ×2 (08:12→19:44)
[2015-07-06] MEDS: ARTIFICIAL TEARS OPTH SOLN 15 ML BTL EACH EYE SCH ×3 (08:12→16:44)
[2015-07-06] MEDS: PARoxetine HCL 20 MG TAB G-TUBE SCH (08:13)
[2015-07-06] MEDS: SODIUM CHLORIDE 0.9% FLUSH 5 ML FLUSH IVF SCH ×2 (08:14→19:48)
[2015-07-06] MEDS: PANTOPRAZOLE SODIUM 40 MG VIAL IV SCH (08:14)
[2015-07-06] MEDS: LACTOBACILLUS ACIDOPHILUS TAB PO SCH ×3 (08:14→16:45)
[2015-07-06] MEDS: QUEtiapine FUMARATE 25 MG TAB G-TUBE SCH (08:15)
[2015-07-06] MEDS: MIDODRINE 5 MG TAB G-TUBE SCH ×2 (08:16→19:44)
--- NOTE | 2015-07-06 13:33 | HHI.PR ---
Subjective Remarks 54 YOWM with ChRF,Trach, multiple uti On Vent No fever Opens eyes, On CPAP 8/5, Fi02 35% Tolerates well No new complaint Anxious, techypnoic Objective Vital Signs Vital Signs Date Time Temp Pulse Resp B/P Pulse Ox O2 Delivery O2 Flow Rate FiO2 07/06/15 13:23 99 35 07/06/15 10:15 100 35 07/06/15 09:22 100 35 07/06/15 09:21 35 07/06/15 08:00 35 07/06/15 08:00 98.8 88 20 127/74 99 07/06/15 08:00 91 07/06/15 07:27 100 35 07/06/15 06:00 89 07/06/15 04:07 99 35 07/06/15 04:00 90 07/06/15 04:00 40 07/06/15 04:00 98.0 90 26 130/61 99 07/06/15 02:00 92 07/06/15 01:15 100 35 07/06/15 00:00 92 07/06/15 00:00 98.6 92 29 137/65 99 07/06/15 00:00 40 07/05/15 22:13 100 35 07/05/15 22:00 96 07/05/15 20:00 98.9 93 28 137/61 99 07/05/15 20:00 93 07/05/15 20:00 40 07/05/15 19:51 100 35 07/05/15 18:00 82 07/05/15 16:13 100 35 07/05/15 16:00 84 07/05/15 16:00 98.6 99 29 110/80 99 07/05/15 16:00 40 07/05/15 14:00 77 I/O 07/05/15 07/05/15 07/05/15 07/06/15 07/06/15 07/06/15 07:00 15:00 23:00 07:00 15:00 23:00 Intake Total 556 ml 1076 ml 520 ml 582 ml Output Total 320 ml 525 ml 800 ml 450 ml Balance 236 ml 551 ml -280 ml 132 ml IV Total 44 ml 58 ml 60 ml Tube Feeding 512 ml 778 ml 520 ml 522 ml Other 240 ml Output Urine Total 320 ml 525 ml 800 ml 450 ml # Bowel Movements 1 1 Result Diagram: 07/05/15 0607/05/15 06 Objective Remarks GENERAL: MBMN male on Vent. SKIN: Warm and dry. HEAD: Normocephalic. EYES: No scleral icterus. No injection or drainage. NECK: Supple, trachea midline. No JVD or lymphadenopathy. has trach CARDIOVASCULAR: Regular rate and rhythm without murmurs, gallops, or rubs. RESPIRATORY: Breath sounds equal bilaterally. No accessory muscle use. GASTROINTESTINAL: Abdomen soft, non-tender, nondistended. PEG tube in place MUSCULOSKELETAL: No cyanosis, or edema. BACK: Nontender without obvious deformity. No CVA tenderness. A/P Assessment and Plan VDRF S/P Trach Parkinson's diasease Dementia UTI PLAN: Vent Support CPAP tral in AM ABX Meropenm, Diflucan and Tobra nebs TF Cont CPAP 8/5 Put on ACV,if remains techpnoic DW family at [facility] MD July 06, 2015 13:32
--- NOTE | 2015-07-06 15:42 | HHI.PR ---
Subjective Remarks The pt appeared comfortable. No changes reported. Objective Vitals Vital Signs Date Time Temp Pulse Resp B/P Pulse Ox O2 Delivery O2 Flow Rate FiO2 07/06/15 14:00 91 07/06/15 13:23 99 35 07/06/15 12:00 92 07/06/15 12:00 98.5 88 20 114/62 99 07/06/15 10:15 100 35 07/06/15 10:00 91 07/06/15 09:22 100 35 07/06/15 09:21 35 07/06/15 08:00 35 07/06/15 08:00 98.8 88 20 127/74 99 07/06/15 08:00 91 07/06/15 07:27 100 35 07/06/15 06:00 89 07/06/15 04:07 99 35 07/06/15 04:00 90 07/06/15 04:00 40 07/06/15 04:00 98.0 90 26 130/61 99 07/06/15 02:00 92 07/06/15 01:15 100 35 07/06/15 00:00 92 07/06/15 00:00 98.6 92 29 137/65 99 07/06/15 00:00 40 07/05/15 22:13 100 35 07/05/15 22:00 96 07/05/15 20:00 98.9 93 28 137/61 99 07/05/15 20:00 93 07/05/15 20:00 40 07/05/15 19:51 100 35 07/05/15 18:00 82 07/05/15 16:13 100 35 07/05/15 16:00 84 07/05/15 16:00 98.6 99 29 110/80 99 07/05/15 16:00 40 I/O 07/05/15 07/05/15 07/05/15 07/06/15 07/06/15 07/06/15 07:00 15:00 23:00 07:00 15:00 23:00 Intake Total 556 ml 1076 ml 520 ml 582 ml 898 ml Output Total 320 ml 525 ml 800 ml 450 ml 450 ml Balance 236 ml 551 ml -280 ml 132 ml 448 ml IV Total 44 ml 58 ml 60 ml 50 ml Tube Feeding 512 ml 778 ml 520 ml 522 ml 628 ml Other 240 ml 220 ml Output Urine Total 320 ml 525 ml 800 ml 450 ml 450 ml # Bowel Movements 1 1 0 Result Diagram: 07/05/1500 07/05/15599 Imaging Last Impressions Chest X-Ray 06/20/15599 Signed Impressions: Service Date/Time: Saturday, June 20, 2015 04:18 - CONCLUSION: No acute cardiopulmonary disease. Eugene Schmid MD Head CT 06/18/151902 Signed Impressions: Service Date/Time: June 19:31 - CONCLUSION: Diffuse atrophy unchanged. No acute intracranial findings. Kush Briscoe MD Abdomen/Pelvis CT 06/18/151902 Signed Impressions: Service Date/Time: June 19:36 - CONCLUSION: 1. Chronic nonspecific urinary bladder wall thickening. Bladder collapsed with Putnam catheter in place. 2. Chronic bilateral mid to lower lung zone groundglass opacity. 3. Nonobstructing left renal calculus. 4. Distended rectum. Kush Brisoce MD Objective Remarks GENERAL: Chronically ill-appearing, frail HEAD: Atraumatic. Normocephalic. EYES: Pupils equal and round. No injection or drainage. ENT: Moist mucous membranes NECK: Trachea midline. Trach in place. CARDIOVASCULAR: Regular rate and rhythm. No murmur appreciated. RESPIRATORY: Clear to auscultation. Breath sounds equal bilaterally. GASTROINTESTINAL: Abdomen soft, non-tender, nondistended. PEG in place. NEUROLOGICAL: Does not answer questions or respond, does not follow commands EXTREMITIES: no edema, contractions noted. BACK: stage II decubitus. Medications and IVs Current Medications Medications (Trade) Dose Ordered Sig/Jassi Route Start Time Stop Time Status Last Admin (NS Flush) 2 ml UNSCH PRN IVF 06/18/15 21:30 06/24/15 09:19 (NS Flush) 2 ml BID IVF 06/19/15 09:00 07/06/15 08:14 (Tylenol 650 Mg/ 20 ml Liq) 650 mg Q6H PRN TUBE 06/18/15 21:30 07/04/15 06:06 (Protonix Inj) 40 mg DAILY IV 06/19/15 09:00 07/06/15 08:14 (Tears Naturale Opth Soln) 1 drop TID EACH EYE 06/19/15 09:00 07/06/15 13:17 (Zofran Inj) 4 mg Q6H PRN IV 06/18/15 21:30 (Lovenox Inj) 30 mg Q24H SQ 06/18/15 22:00 07/05/15 20:40 Miscellaneous Information 1 Q361D XX 06/18/15 21:30 06/18/15 21:30 (Chlorhexidine 2% Cloth) Taper DAILY@04 TOP 06/19/15 04:00 06/14/16 03:59 07/01/15 03:13 Chlorhexidine Gluconate 3 pack 3 pack UNSCH PRN TOP 06/18/15 21:30 Potassium Chloride 100 ml @ 50 mls/hr Q2H PRN IV 06/18/15 21:45 (KCl 20 Meq Premix Inj) 100 ml @ 50 mls/hr Q2H PRN IV 06/18/15 21:45 06/21/15 17:45 Potassium Chloride 40 meq 40 meq UNSCH PRN PO/TUBE 06/18/15 21:45 Potassium Chloride 100 ml @ 25 mls/hr UNSCH PRN IV 06/18/15 21:45 Potassium Chloride 100 ml @ 50 mls/hr Q2H PRN IV 06/18/15 21:45 06/20/15 12:47 (Magnesium Sulfate Inj/NS Inj) 100 ml @ 50 mls/hr UNSCH PRN IV 06/18/15 21:45 Magnesium Oxide 800 mg 800 mg UNSCH PRN PO 06/18/15 21:45 (Magnesium Sulfate Inj/NS Inj) 100 ml @ 50 mls/hr UNSCH PRN IV 06/18/15 21:45 Potassium Phosphate 2000 mg 2,000 mg Q4H PRN PO 06/18/15 21:45 (Sodium Phosphate Inj/NS 250 ml Inj) 250 ml @ 42 mls/hr UNSCH PRN IV 06/18/15 21:45 (KCl 40 Meq/30 ml Liq) 40 meq UNSCH PRN PO/TUBE 06/18/15 21:45 Potassium Phosphate 2000 mg 2,000 mg UNSCH PRN PO/TUBE 06/18/15 21:45 (Potassium Phosphate Inj/NS 250 ml Inj) 260 ml @ 42 mls/hr UNSCH PRN IV 06/18/15 21:45 (D50w (Vial) Inj) 25 ml UNSCH PRN IV PUSH 06/18/15 21:45 (Glucagon Inj) 1 mg UNSCH PRN OTHER 06/18/15 21:45 (Sinemet 25-100 Mg) 1 tab Q8HR GT 06/19/15 06:00 07/06/15 13:17 (Neurontin) 300 mg BID G-TUBE 06/19/15 09:00 07/06/15 08:12 (Lactinex) 1 tab TID PO 06/19/15 09:00 07/06/15 13:17 (Proamatine) 2.5 mg BID G-TUBE 06/19/15 09:00 07/06/15 08:16 (ZyPREXA) 2.5 mg HS GT 06/19/15 21:00 07/05/15 20:40 (Paxil) 20 mg DAILY G-TUBE 06/19/15 09:00 07/06/15 08:13 (SEROquel) 12.5 mg DAILY G-TUBE 06/19/15 09:00 07/06/15 08:15 Miscellaneous 1 ea 1 ea UNSCH PRN OTHER 06/19/15 03:30 06/28/15 09:35 (Diprivan 1000 Mg/100ml Inj) 100 ml @ 0 mls/hr TITRATE IV 06/19/15 12:30 06/28/15 13:11 (Peridex 0.12% Liq) 15 ml BID@08,20 MT 06/19/15 20:00 07/06/15 08:12 (Roxanol Liq) 5 mg Q4H PRN PO 06/20/15 20:45 07/06/15 00:31 (KlonoPIN) 1 mg Q8HR PO 06/28/15 14:00 07/06/15 13:17 Date of Insertion: June 24, 2015 A/P Assessment and Plan Sepsis Blood culture positive with staph epidermidis and coag negative staph, ? contamination. 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 UTI with ESBL. ID was consulted. Putnam was last changed 06/17- size #16. Status post vancomycin, meropenem and micafungin per ID. - continue tobramycin nebulizer. - on Diflucan till 07/03. Will d/c at this time. - follow up with ID. Acute on chronic respiratory failure S/p trach, on mechanical vent. Weaning process ongoing. Possible tracheobronchitis, ground glass opacity on chest x-ray. Pulmonary consult appreciated. Diprivan drip tapered off. Started Clonazepam 1 mg tid 06/28. - Pulmonary following for weaning trials. - vent management with C Pap trial during the day, awaiting trach downsizing. - on nebulization, suctioning. Chronic dementia, encephalopathy, Parkinson disease - Continue Zyprexa, paroxetine, Seroquel, Sinemet for agitation and dementia. S/P PEG tube Tolerating tube feedings. - IVFs as pt appears dry. Stage II sacral decubitus ulcer Present on admission. - wound care team consult. Chronic contractures PT notes reviewed. - we will request staff to do range of motion exercise q shift. DVT GI prophylaxis- on Lovenox. PPI Discharge Planning Awaiting clinical improvement. Salazar Santa DO July 06, 2015 15:42
[2015-07-06] MEDS ORDERED: SODIUM CHLOR 0.9% 1000 ML INJ 1,000 ML IV SCH (15:45)
[2015-07-06] MEDS: OLANZapine 2.5 MG TAB GT SCH (19:44)
[2015-07-06] MEDS: ENOXAPARIN SODIUM 30 MG/0.3 ML SYRINGE SQ SCH (22:22)
[2015-07-07] VITALS (18 sets, daily range): BP systolic 113–165; BP diastolic 65–83; PULSE 74–88; RESP 20–33; TEMP 97.8–98.5; O2SAT 94–100
[2015-07-07] MEDS: CHLORHEXIDINE GLUCONATE 2 % 1 PACK (2 CLOTHS) TOP SCH (04:00)
[2015-07-07] MEDS: CARBIDOPA/LEVODOPA 25 MG/100 MG TAB GT SCH ×3 (05:07→20:24)
[2015-07-07] MEDS: clonazePAM 1 MG TAB PO SCH ×3 (05:07→20:24)
[2015-07-07] MEDS: GABAPENTIN 300 MG CAP G-TUBE SCH ×2 (08:14→20:25)
[2015-07-07] MEDS: LACTOBACILLUS ACIDOPHILUS TAB PO SCH ×3 (08:14→18:34)
[2015-07-07] MEDS: MIDODRINE 5 MG TAB G-TUBE SCH ×2 (08:14→20:24)
[2015-07-07] MEDS: ARTIFICIAL TEARS OPTH SOLN 15 ML BTL EACH EYE SCH ×3 (08:15→18:34)
[2015-07-07] MEDS: PANTOPRAZOLE SODIUM 40 MG VIAL IV SCH (08:15)
[2015-07-07] MEDS: PARoxetine HCL 20 MG TAB G-TUBE SCH (08:15)
[2015-07-07] MEDS: QUEtiapine FUMARATE 25 MG TAB G-TUBE SCH (08:15)
[2015-07-07] MEDS: SODIUM CHLORIDE 0.9% FLUSH 5 ML FLUSH IVF SCH ×2 (08:15→20:25)
[2015-07-07] MEDS: RESP: TOBRAMYCIN SULFATE 80 MG/2 ML NEB NEB SCH ×2 (08:40→19:46)
[2015-07-07] MEDS: CHLORHEXIDINE 0.12% (ORAL KIT) 15 ML CUP MT SCH ×2 (10:03→20:23)
--- NOTE | 2015-07-07 13:50 | HHI.CCPN ---
Subjective Remarks/Hospital Course 06/17: Pt is a 54 yr man with multiple medial problems including Parkinson's disease, advanced dementia, hyponatremia, anxiety, pneumonia, GERD, cognitive disorder, and multidrug resistant UTI- ESBL02/19/15 , who resides in a fdc. Pt by report was found by staff in fdc to be less alert and having respiratory difficultly and fevers. Pt was brought to ED adn placed on ventilator. His workup was inclusive of labs, chest xray and ct head and abd/pelvis. WBC 16.4, +UTI, lactic acid 4, troponin ,0.02, BUN/ cre 18/ 0.76. CT head 06/18/15: diffuse atrophy unchanged. No acute intracranial findings ct abd/ pelvis with IV contrast: 06/18/15 Conclusion: 1. Chronic nonspecific urinary bladder wall thickening. Bladder collapsed with Putnam catheter in place. 2.Chronic bilateral mid to lower zone groundglass opacity. 3. Nonobstructing left renal calculus. 4. Distended rectum Pt admitted and fluid and abx ordered. 06/18: Drowsy, easily arousable. On mechanical ventilation via tracheostomy. Tachypneic. Resting tremor noted. 06/19: Drowsy, arousable. On mechanical ventilation via tracheostomy. 06/20: Drowsy, arousable. Remains on mechanical ventilation via tracheostomy. We'll repeat blood cultures, UA and urine cultures. Fluconazole IV added in view of yeast in urine. Subjective 07/06: Reconsulted as patient return to the ventilator on a right ventricular due to tachypnea. Low-grade temperatures. Tolerating tube feeding. Extremity encephalopathic demented patient with difficult neurological examination. Objective - Vital Signs Date Time Temp Pulse Resp B/P Pulse Ox O2 Delivery O2 Flow Rate FiO2 07/07/15 12:00 35 07/07/15 12:00 79 07/07/15 12:00 98.1 33 132/83 94 07/05/15 11:13 T-piece 07/04/15 10:50 7.00 I/O 07/06/15 07/06/15 07/07/15 08:00 16:00 00:00 Intake Total 582 ml 898 ml 978 ml Output Total 450 ml 450 ml 600 ml Balance 132 ml 448 ml 378 ml Result Diagram: 07/05/15 0607/05/15 06 Imaging Last Impressions Chest X-Ray 06/20/15 06 Signed Impressions: Service Date/Time: Saturday, June 20, 2015 04:18 - CONCLUSION: No acute cardiopulmonary disease. Eugene Schmid MD Head CT 06/18/151902 Signed Impressions: Service Date/Time: June 19:31 - CONCLUSION: Diffuse atrophy unchanged. No acute intracranial findings. Kush Briscoe MD Abdomen/Pelvis CT 06/18/151902 Signed Impressions: Service Date/Time: , June 18, 2015 19:36 - CONCLUSION: 1. Chronic nonspecific urinary bladder wall thickening. Bladder collapsed with Putnam catheter in place. 2. Chronic bilateral mid to lower lung zone groundglass opacity. 3. Nonobstructing left renal calculus. 4. Distended rectum. Kush Briscoe MD Objective Remarks GEN : 54-year-old male, arousable and opens eyes spontaneously currently on mechanical ventilation on the right. Tracheostomy SKIN: Stage II sacral decubitus ulcer. HEAD: Atraumatic. Normocephalic. EYES: Pupils equal and round around 3 mm bilaterally and reactive. No scleral icterus. No injection or drainage. ENT: No nasal bleeding or discharge. Mucous membranes pink and moist. NECK: Trachea midline. No JVD. Tracheostomy is currently clean dry and intact CARDIOVASCULAR: Regular rate and rhythm. S1, S2. No S4. RESPIRATORY: Diminished. Few crackles heard bilateral lower lobes. Positive end expiratory wheeze.. GASTROINTESTINAL: Abdomen soft, non-tender, nondistended. PEG tube site left upper quadrant clean dry and intact MUSCULOSKELETAL: Extremities with bilateral contractures lower extremities. Positive resting tremor bilateral upper extremity. NEUROLOGICAL: Arousable on the ventilator Urinary Catheter: Yes Assessment to: Continue Putnam insert reason: Prolonged Immobilization Date of Insertion: June 24, 2015 Vascular Central Line Catheter: No Assessment to: Continue A/P Assessment and Plan Neuro/Psych: Toxic metabolic Encephalopathy - acute on chronic Parkinson's disease Cognitive disorder NOS Underlying dementia? CT head 06/18/15: - diffuse atrophy unchanged. No acute intracranial findings on repeat exam in ICU pt is reactive and opens eyes immediately Continue Sinemet 25/100 3 times a day via PEG, Seroquel 12.5 mg daily, olanzapine 2.0 mg a night, Paxil 20 daily Neurontin 3 mg twice a day Continue Roxanol 5 mg every 4 hours when necessary pain . Resp: VDRF Chronic trach, acute on chronic resp failure, pneumonia Continue mechanical ventilation via tracheostomy ACV / Duo nebs 4 times a day and when necessary albuterol written Daily C Pap trials as tolerated. Pulmonology/Dr. lee following ABG/chest x-ray today pending Cardiac; History of orthostasis History of CAD, HLP, Hypertension Continue Midodrine 2.5 mg twice a day Continue IV hydration. Watch for hypotension troponin <0.02 GI: Malnutrition/protein calorie - moderate Status post PEG Hemorrhoids Gastroesophageal reflux disease - Currently Protonix 40 mg IV daily. Current Colace/senna for bowel regimen. 2 bowel movements overnight : Strict intake output, monitor and replete electrolytes, follow BUN/creatinine electrolyte replacement protocol ordered ID: Candiduria ESBL positive Klebsiella/Pseudomonas pneumonia MRSA colonization multidrug resistant UTI- ESBL02/19/15 , MRSA + 03/20/15 Heena glabrata in urine 03/19/15 On tobramycin aerosols twice a day. Stop date 15 days Recheck blood, sputum and urine cultures today 06/17 - blood cultures 2 - CONS/staph epi 06/17 - sputum - ESBL positive Klebsiella/Pseudomonas 06/17 - urine - C. glabrata/tropicalis - treated with Diflucan Endo: If indicated sliding scale coverage Renal: Nonobstructing left renal calculus - Follow-up on BMP Heme Anemia - Follow-up on CBC MSK Bilateral lower extremity Contractures Stage II DU Wound care evaluate and treat DVT prof: scd and lovenox ordered GI prof: protonix Critical Care: The total critical care time was 45 minutes. Time to perform other separately billable procedures was not included in the critical care time. Chad Oleary MD July 07, 2015 13:50
[2015-07-07 14:57] LABS: BLOOD GAS BASE EXCESS 5.1 mmol/L (-2-2); BLOOD GAS CARBOXYHEMOGLOBIN 0.9 % (0-4); BLOOD GAS HCO3 29 mmol/L (22-26); BLOOD GAS METHEMOGLOBIN 0.7 % (0-2); BLOOD GAS O2 HGB SATURATION 98 % (90-100); BLOOD GAS OXYGEN CONTENT 15.8 Vol % (12.0-20.0); BLOOD GAS PCO2 43 mmHg (38-42); BLOOD GAS PO2 207 mmHg (61-120); BLOOD GAS TOTAL HGB 11.2 G/DL (12.0-16.0); CRITICAL VALUE NO; OXYGEN DEVICE VENTILATOR; TEMP CORR TO 98.6
[2015-07-07 14:58] LABS: DRAW SITE RT RADIAL; FIO2 32 %; NUMBER OF ARTERIAL PUNCTURES 1; STAT NO; ULNAR PULSE PRESENT; VENT SETTINGS A/C 16/500/5PEEP
--- NOTE | 2015-07-07 15:34 | RADRPT ---
EXAM DATE/TIME: 07/07/2015 14:24 [facility] COMPARISON: CHEST SINGLE AP, June 20, 2015, 4:18. INDICATIONS : Respiratory distress. MEDICAL HISTORY : Hypertension. Gastroesophageal reflux disease. Diabetes mellitus type 2. SURGICAL HISTORY : None. ENCOUNTER: Subsequent ACUITY: 3 weeks PAIN SCORE: Non-responsive. LOCATION: Bilateral chest FINDINGS: There is a 1.5 cm right apical pneumothorax. A tracheostomy tube has its tip 5 cm above the kalie. No acute focal infiltrate is noted. The heart and mediastinal structures are unremarkabl e.. CONCLUSION: New 1.5 cm right apical pneumothorax. The findings were discussed with the patient's nurse at 3:35 PM on 07/07/15. Blair Hill MD on July 07, 2015 at 15:21 Board Certified Radiologist. This report was verified electronically.
[2015-07-07 16:21] LABS: AUTOMATED NEUTROPHIL # 9.6 TH/MM3 (1.8-7.7); BASOPHIL # 0.1 TH/MM3 (0-0.2); BASOPHIL % 0.6 % (0.0-2.0); EOSINOPHIL # 0.8 TH/MM3 (0-0.4); EOSINOPHIL % 6.1 % (0.0-4.0); HEMATOCRIT 36.3 % (39.0-51.0); LYMPHOCYTE # 2.2 TH/MM3 (1.0-4.8); MEAN CELL VOLUME 91.9 FL (80.0-100.0); MEAN CORPUSCULAR HEMOGLOBIN 29.3 PG (27.0-34.0); MEAN CORPUSCULAR HGB CONC 31.9 % (32.0-36.0); MONO % 6.5 % (0.0-8.0); NEUT % 70.8 % (16.0-70.0); PLATELET COUNT 185 TH/MM3 (150-450); RED BLOOD COUNT 3.96 MIL/MM3 (4.50-5.90); RED CELL DISTRIBUTION WIDTH 13.7 % (11.6-17.2); WHITE BLOOD COUNT 13.6 TH/MM3 (4.0-11.0)
[2015-07-07 16:35] LABS: HEMO FLAGS AUTO DIFF
--- NOTE | 2015-07-07 16:42 | HHI.PR ---
Subjective Remarks 54 YOWM with ChRF,Trach, multiple uti On Vent No fever Opens eyes, On CPAP 8/, Fi02 35% Tolerates well Did't tolerate CPAP, on ACV Objective Vital Signs Vital Signs Date Time Temp Pulse Resp B/P Pulse Ox O2 Delivery O2 Flow Rate FiO2 07/07/15 12:00 35 07/07/15 12:00 79 07/07/15 12:00 98.1 78 33 132/83 94 07/07/15 10:00 85 07/07/15 08:41 100 35 07/07/15 08:00 35 07/07/15 08:00 98.0 87 20 131/81 100 07/07/15 08:00 88 07/07/15 06:00 79 07/07/15 04:35 100 35 07/07/15 04:00 78 07/07/15 04:00 35 07/07/15 04:00 98.2 76 22 121/76 100 07/07/15 02:00 75 07/07/15 01:36 100 35 07/07/15 00:00 80 07/07/15 00:00 35 07/07/15 00:00 97.8 77 20 113/71 99 07/06/15 23:00 100 35 07/06/15 22:00 74 07/06/15 20:23 100 35 07/06/15 20:00 99.3 90 22 122/68 99 07/06/15 20:00 90 07/06/15 20:00 35 07/06/15 18:00 89 07/06/15 16:59 100 35 I/O 07/06/15 07/06/15 07/06/15 07/07/15 07/07/15 07/07/15 07:00 15:00 23:00 07:00 15:00 23:00 Intake Total 582 ml 898 ml 978 ml 841 ml Output Total 450 ml 450 ml 600 ml 400 ml Balance 132 ml 448 ml 378 ml 441 ml IV Total 60 ml 50 ml 442 ml 415 ml Tube Feeding 522 ml 628 ml 476 ml 426 ml Other 220 ml 60 ml Output Urine Total 450 ml 450 ml 600 ml 400 ml # Bowel Movements 1 0 1 1 Result Diagram: 07/07/15 1550 07/05/15 0600 Objective Remarks GENERAL: MBMN male on Vent. SKIN: Warm and dry. HEAD: Normocephalic. EYES: No scleral icterus. No injection or drainage. NECK: Supple, trachea midline. No JVD or lymphadenopathy. has trach CARDIOVASCULAR: Regular rate and rhythm without murmurs, gallops, or rubs. RESPIRATORY: Breath sounds equal bilaterally. No accessory muscle use. GASTROINTESTINAL: Abdomen soft, non-tender, nondistended. PEG tube in place MUSCULOSKELETAL: No cyanosis, or edema. BACK: Nontender without obvious deformity. No CVA tenderness. A/P Assessment and Plan VDRF S/P Trach Parkinson's diasease Dementia UTI PLAN: Vent Support AC16 ABX Meropenm, Diflucan and Tobra nebs TF Daily CPAP trial. Severiano Ag MD July 07, 2015 16:42
[2015-07-07 16:43] LABS: BICARBONATE 31.6 MEQ/L (21.0-32.0); POTASSIUM 4.1 MEQ/L (3.5-5.1)
[2015-07-07 17:02] LABS: PLATELET ESTIMATE SMEAR NORMAL (NORMAL); PLATELET MORPHOLOGY NORMAL (NORMAL); SCAN/DIFF AUTO DIFF CONFIRMED
--- NOTE | 2015-07-07 17:07 | PD.RAD ---
Post Procedure Progress Note Pre Procedure Diagnosis: (1) Dyspnea (2) Pneumothorax on right Post Procedure Diagnosis: (1) Dyspnea (2) Pneumothorax on right Procedure Date: July 07, 2015 Supervising Radiologist: Tai Taylor JR Proceduralist/Assist: Radha Mcdaniel RT(R), RT Mary(R)() Anesthesia: Local Plan of Activity Patient to Unit: Critical Care Patient Condition: Fair See PACS Report for procedural detail/treatment Drainage Procedure Procedure 1 Imaging Guidance: Fluoroscopy Side: Right Procedure Type: Chest Tube Non-Tunneled Procedure: Placement Korean: 10 Drainage: Pleurovac Findings: Right apical chest tube placed. CXR to follow. Jr. Brandon,Tai Paredes MD July 07, 2015 17:07
--- NOTE | 2015-07-07 17:35 | RADRPT ---
EXAM DATE/TIME: 07/07/2015 17:14 [facility] COMPARISON: No previous studies available for comparison. INDICATIONS : Patient with right pneumothorax and on a ventilator in need of chest tube placement. MEDICAL HISTORY : Parkinson's disease, advanced dementia, hyponatremia, anxiety, pneumonia, GERD, cognitive disorder, m ultidrug resistant UTI- ESBL02/19/15, MRSA 03/20/15 SURGICAL HISTORY : PEG, trach, left hip fx ENCOUNTER: Initial ACUITY: 1 day PAIN SCORE: 0/10 FLUORO TIME: 1.5 minutes DEVICE(S): 1.) 10 Vincentian non-locking catheter PROCEDURE : 1. Fluoroscopically guided chest tube placement. 2. Conscious sedation with continuous EKG and oximetry monitoring. The risks, benefits and alternatives to the procedure were explained and verbal and written consent w as obtained from the patient's family. The site was prepped in sterile fashion. Full sterile techni que was used, including cap, mask, sterile gloves and gown and a large sterile sheet. Hand hygiene a nd 2% chlorhexidine and/or betadine/alcohol prep was utilized per protocol for cutaneous antisepsis. The skin and subcutaneous tissues were infiltrated with local anesthetic solution. With fluoroscopic guidance the chest was punctured between the first and second interspace and the pr escribed catheter was placed in the lung apex. Wall suction was applied. Post procedure images demon strate satisfactory position of the tube. The catheter was sutured in place and a Percu-Stay was adelaide lied. Conscious sedation was performed with the prescribed dosages and duration as above. The patient lynsey ated the procedure well and there were no complications. EKG and oximetry remained stable throughout the procedure. The patient was sent to post anesthesia recovery in stable condition. CONCLUSION: Uncomplicated right chest tube placement as above. Tai Taylor Jr., MD on July 07, 2015 at 17:32 Board Certified Radiologist. This report was verified electronically.
--- NOTE | 2015-07-07 17:39 | RADRPT ---
EXAM DATE/TIME: 07/07/2015 17:17 [facility] COMPARISON: CHEST SINGLE AP, July 07, 2015, 14:24. INDICATIONS : Post chest tube placement. MEDICAL HISTORY : Hypertension. Gastroesophageal reflux disease. Diabetes mellitus type II. SURGICAL HISTORY : None. ENCOUNTER: Subsequent ACUITY: 3 weeks PAIN SCORE: Non-responsive. LOCATION: Bilateral chest FINDINGS: A single frontal view the chest shows interval placement of a small caliber right apical chest tube. A small apical pneumothorax persists. Tracheostomy tube is noted. Lungs are clear. Heart is normal in size. CONCLUSION: Small residual right apical pneumothorax. Right chest tube is in good position. Tai Taylor Jr., MD on July 07, 2015 at 17:33 Board Certified Radiologist. This report was verified electronically.
[2015-07-07] MEDS: RESP: ALBUTEROL 2.5 MG/IPRATROPIUM 0.5 MG NEB (SCH) NEB (19:46)
[2015-07-07] MEDS: OLANZapine 2.5 MG TAB GT SCH (20:24)
[2015-07-07] MEDS: DOCUSATE SODIUM 100 MG/10 ML UDC PO SCH (20:25)
[2015-07-07] MEDS: ENOXAPARIN SODIUM 30 MG/0.3 ML SYRINGE SQ SCH (20:26)
[2015-07-07 22:05] LABS: BACTERIA, URINE RARE /hpf; BLOOD, URINE SMALL (NEG); GLUCOSE,URINE NEG (NEG); GRANULAR CAST, URINE 1 /lpf; HYALINE CAST, URINE 1 /lpf (RARE); KETONE, URINE NEG (NEG); MUCUS URINE FEW /lpf (OCC); NITRITE,URINE NEG (NEG); SQUAMOUS EPITHELIAL CELL URINE 1 /hpf (0-5); TRANSITIONAL EPI CELLS, URINE <1 /hpf; URINE COLOR YELLOW (YELLW/STRAW)
[2015-07-07 22:08] LABS: COMMENT (UR) CATH-CULTURE IND; CULTURE IF INDICATED CATH CULTURE IND
[2015-07-08] VITALS (19 sets, daily range): BP systolic 104–144; BP diastolic 55–69; PULSE 66–100; RESP 21–38; TEMP 98–99.1; O2SAT 96–100
--- NOTE | 2015-07-08 03:33 | RADRPT ---
EXAM DATE/TIME: 07/08/2015 02:00 [facility] COMPARISON: CHEST EXPIRATION ONLY, July 07, 2015, 17:17. INDICATIONS : Short of Breath MEDICAL HISTORY : Hypertension. Gastroesophageal reflux disease. Diabetes mellitus type II. SURGICAL HISTORY : None. ENCOUNTER: Subsequent ACUITY: 3 weeks PAIN SCORE: Non-responsive. LOCATION: Bilateral chest FINDINGS: The right-sided chest tube is in good position in the right apex. There is no pneumothorax. There is interstitial changes bilaterally. No focal areas of parenchymal consolidation. There are no pleural e ffusions. The heart size is within normal limits. The tracheostomy tube is in place. CONCLUSION: Right chest tube in place. No pneumothorax. Ilir Agosto MD on July 08, 2015 at 3:31 Board Certified Radiologist. This report was verified electronically.
[2015-07-08] MEDS: RESP: ALBUTEROL 2.5 MG/IPRATROPIUM 0.5 MG NEB (SCH) NEB ×3 (03:34→19:28)
[2015-07-08] MEDS: CHLORHEXIDINE GLUCONATE 2 % 1 PACK (2 CLOTHS) TOP SCH (04:00)
[2015-07-08 04:29] LABS: AUTOMATED NEUTROPHIL # 5.3 TH/MM3 (1.8-7.7); BASOPHIL # 0.1 TH/MM3 (0-0.2); BASOPHIL % 0.7 % (0.0-2.0); EOSINOPHIL # 0.6 TH/MM3 (0-0.4); EOSINOPHIL % 7.4 % (0.0-4.0); HEMATOCRIT 33.5 % (39.0-51.0); HEMO FLAGS DIFF FINAL; LYMPH % 21.7 % (9.0-44.0); LYMPHOCYTE # 1.8 TH/MM3 (1.0-4.8); MEAN CELL VOLUME 91.8 FL (80.0-100.0); MEAN CORPUSCULAR HEMOGLOBIN 29.8 PG (27.0-34.0); MEAN CORPUSCULAR HGB CONC 32.5 % (32.0-36.0); NEUT % 63.2 % (16.0-70.0); PLATELET COUNT 162 TH/MM3 (150-450); RED BLOOD COUNT 3.65 MIL/MM3 (4.50-5.90); RED CELL DISTRIBUTION WIDTH 13.6 % (11.6-17.2); WHITE BLOOD COUNT 8.3 TH/MM3 (4.0-11.0)
[2015-07-08 04:48] LABS: BICARBONATE 31.5 MEQ/L (21.0-32.0); POTASSIUM 3.9 MEQ/L (3.5-5.1)
[2015-07-08] MEDS: CARBIDOPA/LEVODOPA 25 MG/100 MG TAB GT SCH ×3 (06:00→21:01)
[2015-07-08] MEDS: clonazePAM 1 MG TAB PO SCH ×3 (06:00→21:02)
[2015-07-08] MEDS ORDERED: fentaNYL 50 MCG/HR PATCH TD SCH (08:00)
--- NOTE | 2015-07-08 08:04 | HHI.CCPN ---
Subjective Remarks/Hospital Course 06/17: Pt is a 54 yr man with multiple medial problems including Parkinson's disease, advanced dementia, hyponatremia, anxiety, pneumonia, GERD, cognitive disorder, and multidrug resistant UTI- ESBL02/19/15 , who resides in a [facility]. Pt by report was found by staff in [facility] to be less alert and having respiratory difficultly and fevers. Pt was brought to ED adn placed on ventilator. His workup was inclusive of labs, chest xray and ct head and abd/pelvis. WBC 16.4, +UTI, lactic acid 4, troponin ,0.02, BUN/ cre 18/ 0.76. CT head 06/18/15: diffuse atrophy unchanged. No acute intracranial findings ct abd/ pelvis with IV contrast: 06/18/15 Conclusion: 1. Chronic nonspecific urinary bladder wall thickening. Bladder collapsed with Putnam catheter in place. 2.Chronic bilateral mid to lower zone groundglass opacity. 3. Nonobstructing left renal calculus. 4. Distended rectum Pt admitted and fluid and abx ordered. 06/18: Drowsy, easily arousable. On mechanical ventilation via tracheostomy. Tachypneic. Resting tremor noted. 06/19: Drowsy, arousable. On mechanical ventilation via tracheostomy. 06/20: Drowsy, arousable. Remains on mechanical ventilation via tracheostomy. We'll repeat blood cultures, UA and urine cultures. Fluconazole IV added in view of yeast in urine. 07/06: Reconsulted as patient return to the ventilator on a right ventricular due to tachypnea. Low-grade temperatures. Tolerating tube feeding. Extremity encephalopathic demented patient with difficult neurological examination. Subjective 07/07: Status post chest tube placement by IR for right pneumothorax 07/06. Afebrile. Tolerating tube feeds. Positive BM. Currently tachypneic on the ventilator. Does not appear to be any acute distress. Objective - Vital Signs Date Time Temp Pulse Resp B/P Pulse Ox O2 Delivery O2 Flow Rate FiO2 07/08/15 06:00 75 07/08/15 04:00 35 07/08/15 04:00 98.8 26 125/69 99 07/05/15 11:13 T-piece 07/04/15 10:50 7.00 I/O 07/07/15 07/07/15 07/08/15 08:00 16:00 00:00 Intake Total 841 ml 900 ml 344 ml Output Total 400 ml 575 ml 350 ml Balance 441 ml 325 ml -6 ml Result Diagram: 07/08/15 0328 07/08/15 0338 Other Results Microbiology Date/Time Procedure Status Source Growth 07/07/15 20:30 Urine Culture Received Urine Catheterized Urine Pending 07/07/15 15:50 Aerobic Blood Culture Received Blood Peripheral Pending 07/07/15 15:50 Anaerobic Blood Culture Received Blood Peripheral Pending 07/07/15 14:50 Gram Stain Received Sputum Endotracheal Pending 07/07/15 14:50 Sputum Culture Received Sputum Endotracheal Pending Imaging Last Impressions Chest X-Ray 07/08/15 0000 Signed Impressions: Service Date/Time: Wednesday, July 08, 2015 02:00 - CONCLUSION: Right chest tube in place. No pneumothorax. Ilir Agosto MD Chest Tube Insertion 07/07/15 0000 Signed Impressions: Service Date/Time: Tuesday, July 07, 2015 17:14 - CONCLUSION: Uncomplicated right chest tube placement as above. Tai Taylor Jr., MD Head CT 06/18/151902 Signed Impressions: Service Date/Time: June 19:31 - CONCLUSION: Diffuse atrophy unchanged. No acute intracranial findings. Kush Briscoe MD Abdomen/Pelvis CT 06/18/151902 Signed Impressions: Service Date/Time: June 19:36 - CONCLUSION: 1. Chronic nonspecific urinary bladder wall thickening. Bladder collapsed with Putnam catheter in place. 2. Chronic bilateral mid to lower lung zone groundglass opacity. 3. Nonobstructing left renal calculus. 4. Distended rectum. Kush Briscoe MD Objective Remarks GEN : 54-year-old male, arousable and opens eyes spontaneously currently on mechanical ventilation on the right. Tracheostomy SKIN: Stage II sacral decubitus ulcer., Right second toe with superficial ulcer HEAD: Atraumatic. Normocephalic. EYES: Pupils equal and round around 3 mm bilaterally and reactive. No scleral icterus. No injection or drainage. ENT: No nasal bleeding or discharge. Mucous membranes pink and moist. NECK: Trachea midline. No JVD. Tracheostomy is currently clean dry and intact CARDIOVASCULAR: Regular rate and rhythm. S1, S2. No S4. RESPIRATORY: Diminished. Few crackles heard bilateral lower lobes. Positive end expiratory wheeze. Tachypnea GASTROINTESTINAL: Abdomen soft, non-tender, nondistended. PEG tube site left upper quadrant clean dry and intact MUSCULOSKELETAL: Extremities with bilateral contractures lower extremities. Positive resting tremor bilateral upper extremity. NEUROLOGICAL: Arousable on the ventilator Urinary Catheter: Yes Assessment to: Continue Putnam insert reason: Prolonged Immobilization Date of Insertion: June 24, 2015 Vascular Central Line Catheter: No Assessment to: Continue A/P Assessment and Plan Neuro/Psych: Toxic metabolic Encephalopathy - acute on chronic Parkinson's disease Cognitive disorder NOS Underlying dementia? CT head 06/18/15: - diffuse atrophy unchanged. No acute intracranial findings on repeat exam in ICU pt is reactive and opens eyes immediately Continue Sinemet 25/100 3 times a day via PEG, Seroquel 25 mg daily, olanzapine 2.5 mg a night, Klonopin 1 mg every 8 hours, Paxil 20 daily and Neurontin 300 mg twice a day Continue Roxanol 5 mg every 4 hours when necessary pain and added fentanyl patch 50 g every 3 days. Resp: VDRF Chronic trach, acute on chronic resp failure, pneumonia Right pneumothorax status post pigtail catheter Continue mechanical ventilation via tracheostomy ACV 16/500/5/35 Duo nebs 4 times a day and when necessary albuterol written Daily C Pap trials as tolerated. Pulmonology/Dr. Ag following Status post right chest tube by IR yesterday -40 cm H2O. 65 cc output. Follow chest x-ray revealed resolution pneumothorax. Cardiac; History of orthostasis History of CAD, HLP, Hypertension Continue Midodrine 2.5 mg twice a day Continue IV hydration. Watch for hypotension troponin <0.02 GI: Malnutrition/protein calorie - moderate Status post PEG Hemorrhoids Gastroesophageal reflux disease - Tolerating Jevity 1.5 at 60 cc an hour - Currently Prevacid 30 mg per PEG tube daily for GERD Current Colace/senna for bowel regimen. 4 bowel movements overnight : Strict intake output, monitor and replete electrolytes, follow BUN/creatinine electrolyte replacement protocol ordered ID: Candiduria ESBL positive Klebsiella/Pseudomonas pneumonia MRSA colonization multidrug resistant UTI- ESBL02/19/15 , MRSA + 03/20/15 Heena glabrata in urine 03/19/15 On tobramycin aerosols twice a day. Stop date 15 days Recheck blood, sputum and urine cultures 07/06 all currently pending 06/17 - blood cultures 2 - CONS/staph epi 06/17 - sputum - ESBL positive Klebsiella/Pseudomonas 06/17 - urine - C. glabrata/tropicalis - treated with Diflucan Endo: If indicated sliding scale coverage Renal: Nonobstructing left renal calculus - Follow-up on BMP Heme Anemia - Follow-up on CBC MSK Bilateral lower extremity Contractures Stage II DU Wound care evaluate and treat DVT prof: scd and lovenox ordered GI prof: Prevacid Critical Care: The total critical care time was 45 minutes. Time to perform other separately billable procedures was not included in the critical care time. Chad Oleary MD Jul 08, 2015 08:04
[2015-07-08] MEDS: RESP: TOBRAMYCIN SULFATE 80 MG/2 ML NEB NEB SCH ×2 (08:25→19:29)
[2015-07-08] MEDS: SENNOSIDES SYRUP 8.8 MG/5 ML CUP PO SCH (09:00)
[2015-07-08] MEDS: DOCUSATE SODIUM 100 MG/10 ML UDC PO SCH ×2 (09:00→21:02)
[2015-07-08] MEDS: PARoxetine HCL 20 MG TAB G-TUBE SCH (09:04)
[2015-07-08] MEDS: LANSOPRAZOLE SOLUTAB 30 MG TAB NG SCH (09:04)
[2015-07-08] MEDS: fentaNYL 50 MCG/HR PATCH TD SCH (09:04)
[2015-07-08] MEDS: GABAPENTIN 300 MG CAP G-TUBE SCH ×2 (09:04→21:02)
[2015-07-08] MEDS: LACTOBACILLUS ACIDOPHILUS TAB PO SCH ×3 (09:04→18:00)
[2015-07-08] MEDS: MIDODRINE 5 MG TAB G-TUBE SCH ×2 (09:04→21:01)
[2015-07-08] MEDS: QUEtiapine FUMARATE 25 MG TAB G-TUBE SCH (09:04)
[2015-07-08] MEDS: SODIUM CHLORIDE 0.9% FLUSH 5 ML FLUSH IVF SCH ×2 (09:05→22:47)
[2015-07-08] MEDS: ARTIFICIAL TEARS OPTH SOLN 15 ML BTL EACH EYE SCH ×3 (09:06→18:00)
[2015-07-08] MEDS: CHLORHEXIDINE 0.12% (ORAL KIT) 15 ML CUP MT SCH ×2 (09:06→21:04)
[2015-07-08] MEDS: MORPHINE SULFATE ORAL SOLN 10 MG/0.5 ML SYRINGE PO PRN ×2 (10:13→16:30)
--- NOTE | 2015-07-08 16:50 | HHI.PR ---
Subjective Remarks 54 YOWM with ChRF,Trach, multiple uti On Vent No fever On ACV, rate 16, Fi02 35% Gets anxious On Fentanyl patch Objective Vital Signs Vital Signs Date Time Temp Pulse Resp B/P Pulse Ox O2 Delivery O2 Flow Rate FiO2 07/08/15 16:04 100 35 07/08/15 16:00 35 07/08/15 16:00 99 07/08/15 16:00 99.1 99 30 116/57 99 07/08/15 14:00 88 07/08/15 13:42 100 35 07/08/15 12:00 96 07/08/15 12:00 35 07/08/15 12:00 98.0 84 24 121/67 96 07/08/15 10:46 99 35 07/08/15 10:00 84 07/08/15 08:26 100 35 07/08/15 08:00 98.3 87 38 144/60 96 07/08/15 08:00 87 07/08/15 08:00 35 07/08/15 06:00 75 07/08/15 04:00 71 07/08/15 04:00 35 07/08/15 04:00 98.8 75 26 125/69 99 07/08/15 03:35 100 35 07/08/15 02:00 66 07/08/15 01:24 100 35 07/08/15 00:00 73 07/08/15 00:00 35 07/08/15 00:00 98.1 73 21 104/64 100 07/07/15 22:00 83 07/07/15 20:00 98.2 74 20 165/65 99 07/07/15 20:00 35 07/07/15 20:00 74 07/07/15 19:47 99 35 07/07/15 18:17 99 35 07/07/15 18:00 80 I/O 07/07/15 07/07/15 07/07/15 07/08/15 07/08/15 07/08/15 07:00 15:00 23:00 07:00 15:00 23:00 Intake Total 841 ml 900 ml 344 ml 530 ml 820 ml Output Total 400 ml 575 ml 350 ml 415 ml 400 ml Balance 441 ml 325 ml -6 ml 115 ml 420 ml IV Total 415 ml 200 ml 0 ml Tube Feeding 426 ml 700 ml 284 ml 470 ml 580 ml Other 60 ml 60 ml 240 ml Output Urine Total 400 ml 575 ml 350 ml 350 ml 400 ml Chest Tube Drainage Total 0 ml 65 ml # Bowel Movements 1 2 1 1 1 Result Diagram: 07/08/158 07/08/15 0338 Objective Remarks GENERAL: MBMN male on Vent. SKIN: Warm and dry. HEAD: Normocephalic. EYES: No scleral icterus. No injection or drainage. NECK: Supple, trachea midline. No JVD or lymphadenopathy. has trach CARDIOVASCULAR: Regular rate and rhythm without murmurs, gallops, or rubs. RESPIRATORY: Breath sounds equal bilaterally. No accessory muscle use. GASTROINTESTINAL: Abdomen soft, non-tender, nondistended. PEG tube in place MUSCULOSKELETAL: No cyanosis, or edema. BACK: Nontender without obvious deformity. No CVA tenderness. A/P Assessment and Plan VDRF S/P Trach Parkinson's diasease Dementia UTI PLAN: Vent Support AC16 ABX Meropenm, Diflucan and Tobra nebs TF Daily CPAP trial. Add Ativan 0.5 mg tid Severiano Ag MD Jul 08, 2015 16:50
[2015-07-08] MEDS: OLANZapine 2.5 MG TAB GT SCH (21:00)
[2015-07-08] MEDS: ENOXAPARIN SODIUM 30 MG/0.3 ML SYRINGE SQ SCH (21:01)
[2015-07-08] MEDS: LORazepam 0.5 MG TAB PO SCH (21:02)
[2015-07-09] VITALS (21 sets, daily range): BP systolic 95–110; BP diastolic 50–71; PULSE 77–102; RESP 17–20; TEMP 98.4–99; O2SAT 95–99
--- NOTE | 2015-07-09 01:10 | RADRPT ---
EXAM DATE/TIME: 07/09/2015 00:35 [facility] COMPARISON: CHEST EXPIRATION ONLY, July 08, 2015, 2:00. CHEST SINGLE AP, July 07, 2015, 14:24. INDICATIONS : Shortness of breath, possible pulmonary disease. MEDICAL HISTORY : Hypertension. Gastroesophageal reflux disease. Diabetes mellitus type II. SURGICAL HISTORY : None. ENCOUNTER: Subsequent ACUITY: 3 weeks PAIN SCORE: Non-responsive. LOCATION: Bilateral chest FINDINGS: The right chest tube are in place. There is a tiny 5 mm pneumothorax along the upper right lateral he mithorax. Otherwise, no significant change compared to the prior studies. There is no change in appea yoel of lung bagley. The tracheostomy tube remains in place. CONCLUSION: Tiny 5 mm right upper lung pneumothorax. Chest tube remains in place. Ilir Agosto MD on July 09, 2015 at 1:07 Board Certified Radiologist. This report was verified electronically.
[2015-07-09] MEDS: RESP: ALBUTEROL 2.5 MG/IPRATROPIUM 0.5 MG NEB (SCH) NEB ×4 (03:53→21:15)
[2015-07-09] MEDS: CHLORHEXIDINE GLUCONATE 2 % 1 PACK (2 CLOTHS) TOP SCH (04:00)
[2015-07-09] MEDS: clonazePAM 1 MG TAB PO SCH ×3 (06:52→21:20)
[2015-07-09] MEDS: LORazepam 0.5 MG TAB PO SCH (06:52)
[2015-07-09] MEDS: CARBIDOPA/LEVODOPA 25 MG/100 MG TAB GT SCH ×3 (06:52→21:21)
[2015-07-09 07:32] LABS: AUTOMATED NEUTROPHIL # 5.9 TH/MM3 (1.8-7.7); BASOPHIL # 0.1 TH/MM3 (0-0.2); BASOPHIL % 0.7 % (0.0-2.0); EOSINOPHIL # 0.6 TH/MM3 (0-0.4); EOSINOPHIL % 6.6 % (0.0-4.0); HEMATOCRIT 32.2 % (39.0-51.0); HEMO FLAGS DIFF FINAL; LYMPH % 17.7 % (9.0-44.0); LYMPHOCYTE # 1.5 TH/MM3 (1.0-4.8); MEAN CELL VOLUME 92.3 FL (80.0-100.0); MEAN CORPUSCULAR HEMOGLOBIN 29.8 PG (27.0-34.0); MEAN CORPUSCULAR HGB CONC 32.3 % (32.0-36.0); MONO % 7.2 % (0.0-8.0); NEUT % 67.8 % (16.0-70.0); PLATELET COUNT 172 TH/MM3 (150-450); RED BLOOD COUNT 3.49 MIL/MM3 (4.50-5.90); RED CELL DISTRIBUTION WIDTH 13.9 % (11.6-17.2); WHITE BLOOD COUNT 8.7 TH/MM3 (4.0-11.0)
[2015-07-09 07:56] LABS: BICARBONATE 34.3 MEQ/L (21.0-32.0); MAGNESIUM 2.1 MG/DL (1.5-2.5); POTASSIUM 4.4 MEQ/L (3.5-5.1)
[2015-07-09] MEDS: MIDODRINE 5 MG TAB G-TUBE SCH ×2 (09:03→21:21)
[2015-07-09] MEDS: LACTOBACILLUS ACIDOPHILUS TAB PO SCH ×3 (09:03→17:51)
[2015-07-09] MEDS: GABAPENTIN 300 MG CAP G-TUBE SCH ×2 (09:03→21:20)
[2015-07-09] MEDS: LANSOPRAZOLE SOLUTAB 30 MG TAB NG SCH (09:03)
[2015-07-09] MEDS: QUEtiapine FUMARATE 25 MG TAB G-TUBE SCH (09:03)
[2015-07-09] MEDS: SENNOSIDES SYRUP 8.8 MG/5 ML CUP PO SCH (09:03)
[2015-07-09] MEDS: PARoxetine HCL 20 MG TAB G-TUBE SCH (09:03)
[2015-07-09] MEDS: DOCUSATE SODIUM 100 MG/10 ML UDC PO SCH ×2 (09:03→21:21)
[2015-07-09] MEDS: ARTIFICIAL TEARS OPTH SOLN 15 ML BTL EACH EYE SCH ×3 (09:04→17:51)
[2015-07-09] MEDS: SODIUM CHLORIDE 0.9% FLUSH 5 ML FLUSH IVF SCH ×2 (09:04→21:21)
[2015-07-09] MEDS: CHLORHEXIDINE 0.12% (ORAL KIT) 15 ML CUP MT SCH ×2 (09:06→20:00)
--- NOTE | 2015-07-09 13:36 | HHI.CCPN ---
Subjective Remarks/Hospital Course 06/17: Pt is a 54 yr man with multiple medial problems including Parkinson's disease, advanced dementia, hyponatremia, anxiety, pneumonia, GERD, cognitive disorder, and multidrug resistant UTI- ESBL02/19/15 , who [facility] in a [facility]. Pt by report was found by staff in [facility] to be less alert and having respiratory difficultly and fevers. Pt was brought to ED adn placed on ventilator. His workup was inclusive of labs, chest xray and ct head and abd/pelvis. WBC 16.4, +UTI, lactic acid 4, troponin ,0.02, BUN/ cre 18/ 0.76. CT head 06/18/15: diffuse atrophy unchanged. No acute intracranial findings ct abd/ pelvis with IV contrast: 06/18/15 Conclusion: 1. Chronic nonspecific urinary bladder wall thickening. Bladder collapsed with Putnam catheter in place. 2.Chronic bilateral mid to lower zone groundglass opacity. 3. Nonobstructing left renal calculus. 4. Distended rectum Pt admitted and fluid and abx ordered. 06/18: Drowsy, easily arousable. On mechanical ventilation via tracheostomy. Tachypneic. Resting tremor noted. 06/19: Drowsy, arousable. On mechanical ventilation via tracheostomy. 06/20: Drowsy, arousable. Remains on mechanical ventilation via tracheostomy. We'll repeat blood cultures, UA and urine cultures. Fluconazole IV added in view of yeast in urine. 07/06: Reconsulted as patient return to the ventilator on a right ventricular due to tachypnea. Low-grade temperatures. Tolerating tube feeding. Extremity encephalopathic demented patient with difficult neurological examination. 07/07: Status post chest tube placement by IR for right pneumothorax 07/06. Afebrile. Tolerating tube feeds. Positive BM. Currently tachypneic on the ventilator. Does not appear to be any acute distress. Subjective 07/08: Afebrile. Tolerating tube feeding. He is comfortable currently on CPAP trials 11/10. Positive BM. Objective - Vital Signs Date Time Temp Pulse Resp B/P Pulse Ox O2 Delivery O2 Flow Rate FiO2 07/09/15 12:19 98 35 07/09/15 12:00 98.7 84 20 95/50 07/05/15 11:13 T-piece I/O 07/08/15 07/08/1507/08/16 08:00 16:00 00:00 Intake Total 530 ml 820 ml 469 ml Output Total 415 ml 400 ml 350 ml Balance 115 ml 420 ml 119 ml Result Diagram: 07/09/15 0611 07/09/15 0611 Other Results Microbiology Date/Time Procedure Status Source Growth 07/07/15 20:30 Urine Culture - Final Complete Urine Catheterized Urine NO GROWTH IN 48 HOURS. 07/07/15 15:50 Aerobic Blood Culture - Preliminary Resulted Blood Peripheral NO GROWTH IN 2 DAYS 07/07/15 15:50 Anaerobic Blood Culture - Final Resulted Blood Peripheral QNS - SEE AEROBE REPORT 07/07/15 14:50 Gram Stain - Final Resulted Sputum Endotracheal 07/07/15 14:50 Sputum Culture - Preliminary Resulted Sputum Endotracheal IMMATURE GROWTH - REINCUBATE Imaging Last Impressions Chest X-Ray 07/09/15 0600 Signed Impressions: Service Date/Time: July 00:35 - CONCLUSION: Tiny 5 mm right upper lung pneumothorax. Chest tube remains in place. Ilir Agosto MD Chest Tube Insertion 07/07/15 0000 Signed Impressions: Service Date/Time: Tuesday, July 07, 2015 17:14 - CONCLUSION: Uncomplicated right chest tube placement as above. Tai Taylor Jr., MD Head CT 06/18/151902 Signed Impressions: Service Date/Time: June 19:31 - CONCLUSION: Diffuse atrophy unchanged. No acute intracranial findings. Kush Briscoe MD Abdomen/Pelvis CT 06/18/151902 Signed Impressions: Service Date/Time: June 19:36 - CONCLUSION: 1. Chronic nonspecific urinary bladder wall thickening. Bladder collapsed with Putnam catheter in place. 2. Chronic bilateral mid to lower lung zone groundglass opacity. 3. Nonobstructing left renal calculus. 4. Distended rectum. Kush Briscoe MD Objective Remarks GEN : 54-year-old male, arousable and opens eyes spontaneously currently on mechanical ventilation on the right. Tracheostomy SKIN: Stage II sacral decubitus ulcer., Right second toe with superficial ulcer HEAD: Atraumatic. Normocephalic. EYES: Pupils equal and round around 3 mm bilaterally and reactive. No scleral icterus. No injection or drainage. ENT: No nasal bleeding or discharge. Mucous membranes pink and moist. NECK: Trachea midline. No JVD. Tracheostomy is currently clean dry and intact CARDIOVASCULAR: Regular rate and rhythm. S1, S2. No S4. RESPIRATORY: Diminished. Few crackles heard bilateral lower lobes. Positive end expiratory wheeze. Right upper chest tube is clean dry and intact. GASTROINTESTINAL: Abdomen soft, non-tender, nondistended. PEG tube site left upper quadrant clean dry and intact MUSCULOSKELETAL: Extremities with bilateral contractures lower extremities. Positive resting tremor bilateral upper extremity. NEUROLOGICAL: Arousable on the ventilator Urinary Catheter: Yes Assessment to: Continue Putnam insert reason: Prolonged Immobilization Date of Insertion: June 24, 2015 Vascular Central Line Catheter: No Assessment to: Continue A/P Assessment and Plan Neuro/Psych: Toxic metabolic Encephalopathy - acute on chronic Parkinson's disease Cognitive disorder NOS Underlying dementia? CT head 06/18/15: - diffuse atrophy unchanged. No acute intracranial findings on repeat exam in ICU pt is reactive and opens eyes immediately Continue Sinemet 25/100 3 times a day via PEG, Seroquel 25 mg daily, olanzapine 2.5 mg a night, Klonopin 2 mg every 8 hours, Paxil 20 daily and Neurontin 300 mg twice a day Continue Roxanol 5 mg every 4 hours when necessary pain and added fentanyl patch 50 g every 3 days on 07/07. Resp: VDRF Chronic trach, acute on chronic resp failure, pneumonia Right pneumothorax status post pigtail catheter Continue mechanical ventilation via tracheostomy ACV 16/500/5/35 -> PSV 10/5 35% Duo nebs 4 times a day and when necessary albuterol written Daily C Pap trials as tolerated. Pulmonology/Dr. Ag following Status post right chest tube by IR yesterday -40 cm H2O. 12 cc output. Follow chest x-ray revealed 5 mm right-sided pneumothorax. Cardiac; History of orthostasis History of CAD, HLP, Hypertension Continue Midodrine 2.5 mg twice a day Continue IV hydration. Watch for hypotension troponin <0.02 GI: Malnutrition/protein calorie - moderate Status post PEG Hemorrhoids Gastroesophageal reflux disease - Tolerating Jevity 1.5 at 60 cc an hour - Currently Prevacid 30 mg per PEG tube daily for GERD Current Colace/senna for bowel regimen. 4 bowel movements overnight : Strict intake output, monitor and replete electrolytes, follow BUN/creatinine electrolyte replacement protocol ordered ID: Candiduria ESBL positive Klebsiella/Pseudomonas pneumonia MRSA colonization multidrug resistant UTI- ESBL02/19/15 , MRSA + 03/20/15 Heena glabrata in urine 03/19/15 On tobramycin aerosols twice a day. Stop date 15 days Recheck blood, sputum and urine cultures 07/06 all currently pending 06/17 - blood cultures 2 - CONS/staph epi 06/17 - sputum - ESBL positive Klebsiella/Pseudomonas 06/17 - urine - C. glabrata/tropicalis - treated with Diflucan Endo: If indicated sliding scale coverage Renal: Nonobstructing left renal calculus - Follow-up on BMP Heme Anemia - Follow-up on CBC MSK Bilateral lower extremity Contractures Stage II DU Wound care evaluate and treat DVT prof: scd and lovenox ordered GI prof: Prevacid Critical Care: The total critical care time was 45 minutes. Time to perform other separately billable procedures was not included in the critical care time. Chad Oleary MD Jul 09, 2015 13:36
--- NOTE | 2015-07-09 15:29 | HHI.PR ---
Subjective Remarks 54 YOWM with ChRF,Trach, multiple uti On Vent No fever On ACV, rate 16, Fi02 35% Gets anxious On Fentanyl patch Calm. tolerates CPAP Objective Vital Signs Vital Signs Date Time Temp Pulse Resp B/P Pulse Ox O2 Delivery O2 Flow Rate FiO2 07/09/15 14:44 98 35 07/09/15 12:19 98 35 07/09/15 12:00 98.7 84 20 95/50 97 07/09/15 12:00 35 07/09/15 12:00 77 07/09/15 10:00 93 07/09/15 09:00 35 07/09/15 08:43 99 35 07/09/15 08:00 35 07/09/15 08:00 99.0 84 17 95/54 97 07/09/15 08:00 84 07/09/15 06:00 91 07/09/15 04:00 96 07/09/15 04:00 98.9 96 17 110/59 95 07/09/15 04:00 35 07/09/15 03:53 97 35 07/09/15 02:00 84 07/09/15 01:04 96 35 07/09/15 00:00 35 07/09/15 00:00 85 07/09/15 00:00 98.8 85 17 98/53 99 07/08/15 22:00 86 07/08/15 20:00 35 07/08/15 20:00 98 07/08/15 20:00 98.7 98 26 105/55 100 07/08/15 19:30 100 35 07/08/15 18:00 100 07/08/15 16:04 100 35 07/08/15 16:00 35 07/08/15 16:00 99 07/08/15 16:00 99.1 99 30 116/57 99 I/O 07/08/15 07/08/15 07/08/15 07/09/15 07/09/15 07/09/15 07:00 15:00 23:00 07:00 15:00 23:00 Intake Total 530 ml 820 ml 469 ml 581 ml 500 ml Output Total 415 ml 400 ml 350 ml 462 ml 487 ml Balance 115 ml 420 ml 119 ml 119 ml 13 ml IV Total 0 ml 0 ml 0 ml 0 ml Tube Feeding 470 ml 580 ml 469 ml 581 ml 500 ml Other 60 ml 240 ml Output Urine Total 350 ml 400 ml 350 ml 450 ml 475 ml Tube Feeding Residual Discard 0 ml 0 ml Chest Tube Drainage Total 65 ml 12 ml 12 ml # Bowel Movements 1 1 1 1 0 Result Diagram: 07/09/15 0611 07/09/15 0611 Objective Remarks GENERAL: MBMN male on Vent. SKIN: Warm and dry. HEAD: Normocephalic. EYES: No scleral icterus. No injection or drainage. NECK: Supple, trachea midline. No JVD or lymphadenopathy. has trach CARDIOVASCULAR: Regular rate and rhythm without murmurs, gallops, or rubs. RESPIRATORY: Breath sounds equal bilaterally. No accessory muscle use. GASTROINTESTINAL: Abdomen soft, non-tender, nondistended. PEG tube in place MUSCULOSKELETAL: No cyanosis, or edema. BACK: Nontender without obvious deformity. No CVA tenderness. A/P Assessment and Plan VDRF S/P Trach Parkinson's diasease Dementia UTI PLAN: Vent Support AC16 ABX Meropenm, Diflucan and Tobra nebs TF Daily CPAP trial. Add Ativan 0.5 mg tid Cont CPAP 11/10 Severiano Ag MD Jul 09, 2015 15:29
[2015-07-09] MEDS: OLANZapine 2.5 MG TAB GT SCH (21:00)
[2015-07-09] MEDS: ENOXAPARIN SODIUM 30 MG/0.3 ML SYRINGE SQ SCH (21:21)
[2015-07-10] VITALS (15 sets, daily range): BP systolic 93–120; BP diastolic 51–62; PULSE 66–91; RESP 18–21; TEMP 97.5–98.9; O2SAT 94–100
[2015-07-10] MEDS: RESP: ALBUTEROL 2.5 MG/IPRATROPIUM 0.5 MG NEB (SCH) NEB ×4 (03:58→20:52)
[2015-07-10] MEDS: CHLORHEXIDINE GLUCONATE 2 % 1 PACK (2 CLOTHS) TOP SCH ×2 (04:00→22:11)
[2015-07-10] MEDS: clonazePAM 1 MG TAB PO SCH ×3 (06:07→22:09)
[2015-07-10] MEDS: CARBIDOPA/LEVODOPA 25 MG/100 MG TAB GT SCH ×3 (06:07→22:09)
--- NOTE | 2015-07-10 06:30 | RADRPT ---
EXAM DATE/TIME: 07/10/2015 04:53 [facility] COMPARISON: CHEST EXPIRATION ONLY, July 08, 2015, 2:00. CHEST SINGLE AP, July 09, 2015, 0:35. INDICATIONS : Shortness of breath. MEDICAL HISTORY : Hypertension. Gastroesophageal reflux disease. Diabetes mellitus type II. SURGICAL HISTORY : None. ENCOUNTER: Subsequent ACUITY: 3 weeks PAIN SCORE: Non-responsive. LOCATION: Bilateral chest FINDINGS: The right pigtail chest drainage catheter is unchanged in position at the right apex. There is a per sistent right pneumothorax with pleural reflection extending laterally down to the lower chest. The size of the pneumothorax has increased, now measuring 8 mm (previously measured 5 mm). The left lung is clear. The heart is normal in size. Mediastinal structures are not deviated. CONCLUSION: Increase size of right pneumothorax to 8 mm with right chest drainage catheters stable in position. Tai Jaquez MD on July 10, 2015 at 6:27 Board Certified Radiologist. This report was verified electronically.
[2015-07-10] MEDS: GABAPENTIN 300 MG CAP G-TUBE SCH ×2 (09:19→22:09)
[2015-07-10] MEDS: LACTOBACILLUS ACIDOPHILUS TAB PO SCH ×3 (09:19→18:00)
[2015-07-10] MEDS: PARoxetine HCL 20 MG TAB G-TUBE SCH (09:19)
[2015-07-10] MEDS: MIDODRINE 5 MG TAB G-TUBE SCH ×2 (09:19→22:09)
[2015-07-10] MEDS: SENNOSIDES SYRUP 8.8 MG/5 ML CUP PO SCH (09:19)
[2015-07-10] MEDS: DOCUSATE SODIUM 100 MG/10 ML UDC PO SCH ×2 (09:19→22:09)
[2015-07-10] MEDS: QUEtiapine FUMARATE 25 MG TAB G-TUBE SCH (09:20)
[2015-07-10] MEDS: SODIUM CHLORIDE 0.9% FLUSH 5 ML FLUSH IVF SCH ×2 (09:20→22:10)
[2015-07-10] MEDS: LANSOPRAZOLE SOLUTAB 30 MG TAB NG SCH (09:20)
[2015-07-10] MEDS: ARTIFICIAL TEARS OPTH SOLN 15 ML BTL EACH EYE SCH ×3 (09:21→18:00)
[2015-07-10] MEDS: CHLORHEXIDINE 0.12% (ORAL KIT) 15 ML CUP MT SCH ×2 (09:21→20:00)
--- NOTE | 2015-07-10 15:04 | HHI.CCPN ---
Subjective Remarks/Hospital Course 06/17: Pt is a 54 yr man with multiple medial problems including Parkinson's disease, advanced dementia, hyponatremia, anxiety, pneumonia, GERD, cognitive disorder, and multidrug resistant UTI- ESBL02/19/15 , who [facility] in a [facility]. Pt by report was found by staff in [facility] to be less alert and having respiratory difficultly and fevers. Pt was brought to ED adn placed on ventilator. His workup was inclusive of labs, chest xray and ct head and abd/pelvis. WBC 16.4, +UTI, lactic acid 4, troponin ,0.02, BUN/ cre 18/ 0.76. CT head 06/18/15: diffuse atrophy unchanged. No acute intracranial findings ct abd/ pelvis with IV contrast: 06/18/15 Conclusion: 1. Chronic nonspecific urinary bladder wall thickening. Bladder collapsed with Putnam catheter in place. 2.Chronic bilateral mid to lower zone groundglass opacity. 3. Nonobstructing left renal calculus. 4. Distended rectum Pt admitted and fluid and abx ordered. 06/18: Drowsy, easily arousable. On mechanical ventilation via tracheostomy. Tachypneic. Resting tremor noted. 06/19: Drowsy, arousable. On mechanical ventilation via tracheostomy. 06/20: Drowsy, arousable. Remains on mechanical ventilation via tracheostomy. We'll repeat blood cultures, UA and urine cultures. Fluconazole IV added in view of yeast in urine. 07/06: Reconsulted as patient return to the ventilator on a right ventricular due to tachypnea. Low-grade temperatures. Tolerating tube feeding. Extremity encephalopathic demented patient with difficult neurological examination. 07/07: Status post chest tube placement by IR for right pneumothorax 07/06. Afebrile. Tolerating tube feeds. Positive BM. Currently tachypneic on the ventilator. Does not appear to be any acute distress. 07/08: Afebrile. Tolerating tube feeding. He is comfortable currently on CPAP trials 11/10. Positive BM. Subjective 07/09: Afebrile. Tolerating tube feeding. Appears comfortable on T bar. Positive BM. Objective - Vital Signs Date Time Temp Pulse Resp B/P Pulse Ox O2 Delivery O2 Flow Rate FiO2 07/10/15 12:00 35 07/10/15 12:00 97.5 84 18 110/55 97 07/10/15 10:07 T-piece I/O 07/09/15 07/09/15 07/10/15 08:00 16:00 00:00 Intake Total 581 ml 500 ml 439 ml Output Total 462.0 ml 492 ml 300 ml Balance 119.0 ml 8 ml 139 ml Result Diagram: 07/09/15 0611 07/09/15 0611 Other Results Microbiology Date/Time Procedure Status Source Growth 07/07/15 20:30 Urine Culture - Final Complete Urine Catheterized Urine NO GROWTH IN 48 HOURS. 07/07/15 15:50 Aerobic Blood Culture - Preliminary Resulted Blood Peripheral NO GROWTH IN 3 DAYS 07/07/15 15:50 Anaerobic Blood Culture - Final Resulted Blood Peripheral QNS - SEE AEROBE REPORT 07/07/15 14:50 Gram Stain - Final Complete Sputum Endotracheal 07/07/15 14:50 Sputum Culture - Final Complete Sputum Endotracheal LIGHT GROWTH NORMAL RESPIRATORY ANGY Imaging Last Impressions Chest X-Ray 07/10/15 0600 Signed Impressions: Service Date/Time: Friday, July 10, 2015 04:53 - CONCLUSION: Increase size of right pneumothorax to 8 mm with right chest drainage catheters stable in position. Tai Jaquez MD Chest Tube Insertion 07/07/15 0000 Signed Impressions: Service Date/Time: Tuesday, July 07, 2015 17:14 - CONCLUSION: Uncomplicated right chest tube placement as above. Tai Taylor Jr., MD Head CT 06/18/151902 Signed Impressions: Service Date/Time: June 19:31 - CONCLUSION: Diffuse atrophy unchanged. No acute intracranial findings. Kush Briscoe MD Abdomen/Pelvis CT 06/18/151902 Signed Impressions: Service Date/Time: June 19:36 - CONCLUSION: 1. Chronic nonspecific urinary bladder wall thickening. Bladder collapsed with Putnam catheter in place. 2. Chronic bilateral mid to lower lung zone groundglass opacity. 3. Nonobstructing left renal calculus. 4. Distended rectum. Kush Briscoe MD Objective Remarks GEN : 54-year-old male, arousable and opens eyes spontaneously currently on mechanical ventilation on the right. Tracheostomy SKIN: Stage II sacral decubitus ulcer., Right second toe with superficial ulcer HEAD: Atraumatic. Normocephalic. EYES: Pupils equal and round around 3 mm bilaterally and reactive. No scleral icterus. No injection or drainage. ENT: No nasal bleeding or discharge. Mucous membranes pink and moist. NECK: Trachea midline. No JVD. Tracheostomy is currently clean dry and intact CARDIOVASCULAR: Regular rate and rhythm. S1, S2. No S4. RESPIRATORY: Diminished. Few crackles heard bilateral lower lobes. Positive end expiratory wheeze. Right upper chest tube is clean dry and intact. GASTROINTESTINAL: Abdomen soft, non-tender, nondistended. PEG tube site left upper quadrant clean dry and intact MUSCULOSKELETAL: Extremities with bilateral contractures lower extremities. Positive resting tremor bilateral upper extremity. NEUROLOGICAL: Arousable on the ventilator Date of Insertion: June 24, 2015 A/P Assessment and Plan Neuro/Psych: Toxic metabolic Encephalopathy - acute on chronic Parkinson's disease Cognitive disorder NOS Underlying dementia? CT head 06/18/15: - diffuse atrophy unchanged. No acute intracranial findings on repeat exam in ICU pt is reactive and opens eyes immediately Continue Sinemet 25/100 3 times a day via PEG, Seroquel 25 mg daily, olanzapine 2.5 mg a night, Klonopin 2 mg every 8 hours, Paxil 20 daily and Neurontin 300 mg twice a day Continue Roxanol 5 mg every 4 hours when necessary pain and added fentanyl patch 50 g every 3 days on 07/07. Resp: VDRF Chronic trach, acute on chronic resp failure, pneumonia Right pneumothorax status post pigtail catheter Continue mechanical ventilation via tracheostomy ACV 16/500/5/35 -> PSV 10/5 35% Duo nebs 4 times a day and when necessary albuterol written Daily C Pap trials as tolerated. Pulmonology/Dr. Ag following Status post right chest tube by IR yesterday -40 cm H2O. a small intermittently leak. 12 cc output. Follow chest x-ray revealed 8 mm right- sided pneumothorax. Improved since off the ventilator. If no improvement will consult CT surgery in a.m. Cardiac; History of orthostasis History of CAD, HLP, Hypertension Continue Midodrine 2.5 mg twice a day Continue IV hydration. Watch for hypotension troponin <0.02 GI: Malnutrition/protein calorie - moderate Status post PEG Hemorrhoids Gastroesophageal reflux disease - Tolerating Jevity 1.5 at 60 cc an hour - Currently Prevacid 30 mg per PEG tube daily for GERD Current Colace/senna for bowel regimen. 4 bowel movements overnight : Strict intake output, monitor and replete electrolytes, follow BUN/creatinine electrolyte replacement protocol ordered ID: Candiduria ESBL positive Klebsiella/Pseudomonas pneumonia MRSA colonization multidrug resistant UTI- ESBL02/19/15 , MRSA + 03/20/15 Heena glabrata in urine 03/19/15 On tobramycin aerosols twice a day. Stop date 15 days Recheck blood, sputum and urine cultures 07/06 all currently pending 06/17 - blood cultures 2 - CONS/staph epi 06/17 - sputum - ESBL positive Klebsiella/Pseudomonas 06/17 - urine - C. glabrata/tropicalis - treated with Diflucan Endo: If indicated sliding scale coverage Renal: Nonobstructing left renal calculus - Follow-up on BMP Heme Anemia - Follow-up on CBC MSK Bilateral lower extremity Contractures Stage II DU Wound care evaluate and treat DVT prof: scd and lovenox ordered GI prof: Prevacid Critical Care: The total critical care time was 45 minutes. Time to perform other separately billable procedures was not included in the critical care time. Chad Oleary MD Jul 10, 2015 15:04
--- NOTE | 2015-07-10 17:18 | HHI.PR ---
Subjective Remarks 54 YOWM with ChRF,Trach, multiple uti On Vent No fever Gets anxious On Fentanyl patch Has right chest tube CXR 8 mm residual PTX Objective Vital Signs Vital Signs Date Time Temp Pulse Resp B/P Pulse Ox O2 Delivery O2 Flow Rate FiO2 07/10/15 16:00 84 07/10/15 16:00 35 07/10/15 14:00 83 07/10/15 12:00 35 07/10/15 12:00 83 07/10/15 12:00 97.5 84 18 110/55 97 07/10/15 10:07 98 T-piece 40 07/10/15 10:00 70 07/10/15 08:00 35 07/10/15 07:45 100 35 07/10/15 06:00 66 07/10/15 04:00 86 07/10/15 04:00 35 07/10/15 04:00 98.6 86 18 120/62 98 07/10/15 04:00 98 35 07/10/15 02:00 84 07/10/15 00:45 99 35 07/10/15 00:00 35 07/10/15 00:00 83 07/10/15 00:00 98.9 83 18 120/58 98 07/09/15 22:00 82 07/09/15 21:13 99 Ventilator 35 07/09/15 20:00 102 07/09/15 20:00 98.4 80 18 110/71 98 07/09/15 20:00 97 35 07/09/15 20:00 35 07/09/15 18:00 84 07/09/15 17:30 98 Ventilator 35 07/09/15 17:30 99 35 I/O 07/09/15 07/09/15 07/09/15 07/10/15 07/10/15 07/10/15 07:00 15:00 23:00 07:00 15:00 23:00 Intake Total 581 ml 500 ml 439 ml 514 ml 932 ml Output Total 462 ml 492 ml 300 ml 500 ml 500 ml Balance 119 ml 8 ml 139 ml 14 ml 432 ml IV Total 0 ml 0 ml 0 ml Tube Feeding 581 ml 500 ml 439 ml 514 ml 612 ml Other 320 ml Output Urine Total 450 ml 475 ml 300 ml 500 ml 500 ml Tube Feeding Residual Discard 0 ml 0 ml 0 ml Chest Tube Drainage Total 12 ml 17 ml 0 ml 0 ml # Bowel Movements 1 0 1 1 Result Diagram: 07/09/15 0611 07/09/15 0611 Objective Remarks GENERAL: MBMN male on Vent. SKIN: Warm and dry. HEAD: Normocephalic. EYES: No scleral icterus. No injection or drainage. NECK: Supple, trachea midline. No JVD or lymphadenopathy. has trach CARDIOVASCULAR: Regular rate and rhythm without murmurs, gallops, or rubs. RESPIRATORY: Breath sounds equal bilaterally. No accessory muscle use. Right chest tube to suction GASTROINTESTINAL: Abdomen soft, non-tender, nondistended. PEG tube in place MUSCULOSKELETAL: No cyanosis, or edema. BACK: Nontender without obvious deformity. No CVA tenderness. A/P Assessment and Plan VDRF S/P Trach Parkinson's diasease Dementia UTI Small PTX PLAN: ABX Meropenm, Diflucan and Tobra nebs TF Add Ativan 0.5 mg tid Cont T-Tube CT to suction Severiano Ag MD Jul 10, 2015 17:18
[2015-07-10] MEDS: OLANZapine 2.5 MG TAB GT SCH (21:00)
[2015-07-10] MEDS: ENOXAPARIN SODIUM 30 MG/0.3 ML SYRINGE SQ SCH (22:09)
[2015-07-11] VITALS (19 sets, daily range): BP systolic 99–156; BP diastolic 55–76; PULSE 83–105; RESP 17–47; TEMP 98.7–100; O2SAT 95–100
[2015-07-11] MEDS: RESP: ALBUTEROL 2.5 MG/IPRATROPIUM 0.5 MG NEB (SCH) NEB ×3 (03:28→15:18)
[2015-07-11 05:09] LABS: AUTOMATED NEUTROPHIL # 7.9 TH/MM3 (1.8-7.7); BASOPHIL % 0.4 % (0.0-2.0); EOSINOPHIL # 0.7 TH/MM3 (0-0.4); EOSINOPHIL % 6.7 % (0.0-4.0); HEMATOCRIT 35.1 % (39.0-51.0); HEMO FLAGS DIFF FINAL; LYMPH % 11.4 % (9.0-44.0); LYMPHOCYTE # 1.2 TH/MM3 (1.0-4.8); MEAN CELL VOLUME 91.5 FL (80.0-100.0); MEAN CORPUSCULAR HEMOGLOBIN 29.6 PG (27.0-34.0); MEAN CORPUSCULAR HGB CONC 32.3 % (32.0-36.0); MONO % 5.6 % (0.0-8.0); NEUT % 75.9 % (16.0-70.0); PLATELET COUNT 170 TH/MM3 (150-450); RED BLOOD COUNT 3.83 MIL/MM3 (4.50-5.90); RED CELL DISTRIBUTION WIDTH 13.7 % (11.6-17.2); WHITE BLOOD COUNT 10.4 TH/MM3 (4.0-11.0)
[2015-07-11] MEDS: clonazePAM 1 MG TAB PO SCH ×3 (05:11→21:34)
[2015-07-11] MEDS: CARBIDOPA/LEVODOPA 25 MG/100 MG TAB GT SCH ×3 (05:11→21:34)
[2015-07-11 05:14] LABS: BICARBONATE 34.4 MEQ/L (21.0-32.0); POTASSIUM 4.4 MEQ/L (3.5-5.1)
--- NOTE | 2015-07-11 05:55 | RADRPT ---
EXAM DATE/TIME: 07/11/2015 04:08 [facility] COMPARISON: CHEST SINGLE AP, July 10, 2015, 4:53. INDICATIONS : Shortness of breath, possible pulmonary disease. MEDICAL HISTORY : Hypertension. Gastroesophageal reflux disease. Diabetes mellitus type II. SURGICAL HISTORY : None. ENCOUNTER: Subsequent ACUITY: 3 weeks PAIN SCORE: Non-responsive. LOCATION: Bilateral chest FINDINGS: Hyperinflation. Tracheostomy tube identified. Right pigtail catheter identified with a small pneumoth orax seen along the right lung base.. CONCLUSION: Small right pneumothorax noted. Jeramie Manjarrez MD on July 11, 2015 at 5:52 Board Certified Radiologist. This report was verified electronically.
--- NOTE | 2015-07-11 07:07 | HHI.CCPN ---
Subjective Remarks/Hospital Course 06/17: Pt is a 54 yr man with multiple medial problems including Parkinson's disease, advanced dementia, hyponatremia, anxiety, pneumonia, GERD, cognitive disorder, and multidrug resistant UTI- ESBL02/19/15 , who resides in a custodial. Pt by report was found by staff in custodial to be less alert and having respiratory difficultly and fevers. Pt was brought to ED adn placed on ventilator. His workup was inclusive of labs, chest xray and ct head and abd/pelvis. WBC 16.4, +UTI, lactic acid 4, troponin ,0.02, BUN/ cre 18/ 0.76. CT head 06/18/15: diffuse atrophy unchanged. No acute intracranial findings ct abd/ pelvis with IV contrast: 06/18/15 Conclusion: 1. Chronic nonspecific urinary bladder wall thickening. Bladder collapsed with Putnam catheter in place. 2.Chronic bilateral mid to lower zone groundglass opacity. 3. Nonobstructing left renal calculus. 4. Distended rectum Pt admitted and fluid and abx ordered. 06/18: Drowsy, easily arousable. On mechanical ventilation via tracheostomy. Tachypneic. Resting tremor noted. 06/19: Drowsy, arousable. On mechanical ventilation via tracheostomy. 06/20: Drowsy, arousable. Remains on mechanical ventilation via tracheostomy. We'll repeat blood cultures, UA and urine cultures. Fluconazole IV added in view of yeast in urine. 07/06: Reconsulted as patient return to the ventilator on a right ventricular due to tachypnea. Low-grade temperatures. Tolerating tube feeding. Extremity encephalopathic demented patient with difficult neurological examination. 07/07: Status post chest tube placement by IR for right pneumothorax 07/06. Afebrile. Tolerating tube feeds. Positive BM. Currently tachypneic on the ventilator. Does not appear to be any acute distress. 07/08: Afebrile. Tolerating tube feeding. He is comfortable currently on CPAP trials 11/10. Positive BM. 07/09: Afebrile. Tolerating tube feeding. Appears comfortable on T bar. Positive BM. Subjective 07/10: Afebrile. Eyes are open. Remained on T piece overnight. Tolerating tube feeding. Objective - Vital Signs Date Time Temp Pulse Resp B/P Pulse Ox O2 Delivery O2 Flow Rate FiO2 07/11/15 06:00 100 07/11/15 04:00 35 07/11/15 04:00 98.7 21 128/64 98 07/11/15 03:55 T-piece I/O 07/10/15 07/10/15 07/11/15 08:00 16:00 00:00 Intake Total 514 ml 932 ml 666 ml Output Total 500.0 ml 500 ml 400 ml Balance 14.0 ml 432 ml 266 ml Result Diagram: 07/11/15 0338 07/11/15 0338 Other Results Microbiology Date/Time Procedure Status Source Growth 07/07/15 20:30 Urine Culture - Final Complete Urine Catheterized Urine NO GROWTH IN 48 HOURS. 07/07/15 15:50 Aerobic Blood Culture - Preliminary Resulted Blood Peripheral NO GROWTH IN 3 DAYS 07/07/15 15:50 Anaerobic Blood Culture - Final Resulted Blood Peripheral QNS - SEE AEROBE REPORT 07/07/15 14:50 Gram Stain - Final Complete Sputum Endotracheal 07/07/15 14:50 Sputum Culture - Final Complete Sputum Endotracheal LIGHT GROWTH NORMAL RESPIRATORY ANGY Imaging Last Impressions Chest X-Ray 07/11/15 0600 Signed Impressions: Service Date/Time: Saturday, July 11, 2015 04:08 - CONCLUSION: Small right pneumothorax noted. Jeramie Manjarrez MD Chest Tube Insertion 07/07/15 0000 Signed Impressions: Service Date/Time: Tuesday, July 07, 2015 17:14 - CONCLUSION: Uncomplicated right chest tube placement as above. Tia Taylor Jr., MD Head CT 06/18/151902 Signed Impressions: Service Date/Time: June 19:31 - CONCLUSION: Diffuse atrophy unchanged. No acute intracranial findings. Kush Briscoe MD Abdomen/Pelvis CT 06/18/151902 Signed Impressions: Service Date/Time: June 19:36 - CONCLUSION: 1. Chronic nonspecific urinary bladder wall thickening. Bladder collapsed with Putnam catheter in place. 2. Chronic bilateral mid to lower lung zone groundglass opacity. 3. Nonobstructing left renal calculus. 4. Distended rectum. Kush Briscoe MD Objective Remarks GEN : 54-year-old male, arousable and opens eyes spontaneously currently on mechanical ventilation on the right. Tracheostomy SKIN: Stage II sacral decubitus ulcer., Right second toe with superficial ulcer HEAD: Atraumatic. Normocephalic. EYES: Pupils equal and round around 3 mm bilaterally and reactive. No scleral icterus. No injection or drainage. ENT: No nasal bleeding or discharge. Mucous membranes pink and moist. NECK: Trachea midline. No JVD. Tracheostomy is currently clean dry and intact CARDIOVASCULAR: Regular rate and rhythm. S1, S2. No S4. RESPIRATORY: Diminished. Few crackles heard bilateral lower lobes. Positive end expiratory wheeze. Right upper chest pigtail tube is clean dry and intact. GASTROINTESTINAL: Abdomen soft, non-tender, nondistended. PEG tube site left upper quadrant clean dry and intact MUSCULOSKELETAL: Extremities with bilateral contractures lower extremities. Positive resting tremor bilateral upper extremity. NEUROLOGICAL: Arousable on the ventilator Urinary Catheter: Yes Assessment to: Continue Putnam insert reason: Prolonged Immobilization Date of Insertion: June 24, 2015 Vascular Central Line Catheter: No Assessment to: Continue A/P Assessment and Plan Neuro/Psych: Toxic metabolic Encephalopathy - acute on chronic Parkinson's disease Cognitive disorder NOS Underlying dementia? CT head 06/18/15: - diffuse atrophy unchanged. No acute intracranial findings on repeat exam in ICU pt is reactive and opens eyes immediately Continue Sinemet 25/100 3 times a day via PEG, Seroquel 25 mg daily, olanzapine 2.5 mg a night, Klonopin 2 mg every 8 hours, Paxil 20 daily and Neurontin 300 mg twice a day Continue Roxanol 5 mg every 4 hours when necessary pain and added fentanyl patch 50 g every 3 days on 07/07. Resp: VDRF Chronic trach, acute on chronic resp failure, pneumonia Right pneumothorax status post pigtail catheter Continue mechanical ventilation via tracheostomy ACV 16/500/5/35 -> PSV 10/5 35% Duo nebs 4 times a day and when necessary albuterol written Daily C Pap trials as tolerated. Pulmonology/Dr. Ag following Status post right chest tube by IR yesterday -40 cm H2O. a small intermittently leak. 17 cc yellowish output. Follow chest x-ray revealed 8 mm right-sided pneumothorax. Improved since off the ventilator. CT chest ordered today to delineate size of PTX. If no improvement will consult CT surgery in a.m. Cardiac; History of orthostasis History of CAD, HLP, Hypertension Continue Midodrine 2.5 mg twice a day Watch for hypotension troponin <0.02 GI: Malnutrition/protein calorie - moderate Status post PEG Hemorrhoids Gastroesophageal reflux disease - Tolerating Jevity 1.5 at 60 cc an hour - Currently Prevacid 30 mg per PEG tube daily for GERD Current Colace/senna for bowel regimen. Positive bowel movements overnight : Strict intake output, monitor and replete electrolytes, follow BUN/creatinine electrolyte replacement protocol ordered ID: Candiduria ESBL positive Klebsiella/Pseudomonas pneumonia MRSA colonization multidrug resistant UTI- ESBL02/19/15 , MRSA + 03/20/15 Heena glabrata in urine 03/19/15 On tobramycin aerosols twice a day. Stop date 15 days Recheck blood, sputum and urine cultures 07/06 all currently pending 06/17 - blood cultures 2 - CONS/staph epi 06/17 - sputum - ESBL positive Klebsiella/Pseudomonas 06/17 - urine - C. glabrata/tropicalis - treated with Diflucan Endo: If indicated sliding scale coverage Renal: Nonobstructing left renal calculus - Follow-up on BMP Heme Anemia - Follow-up on CBC MSK Bilateral lower extremity Contractures Stage II DU Wound care evaluate and treat DVT prof: scd and lovenox ordered GI prof: Prevacid Critical Care: The total care time was 35 minutes. Time to perform other separately billable procedures was not included in the critical care time. Patient is stable from a critical care medicine standpoint. We'll assign care to hospitalist in a.m. 07/12/2015 Chad Oleary MD Jul 11, 2015 07:07
[2015-07-11] MEDS: REMOVE OLD PATCH TD SCH (08:00)
[2015-07-11] MEDS: LACTOBACILLUS ACIDOPHILUS TAB PO SCH ×3 (08:19→17:48)
[2015-07-11] MEDS: QUEtiapine FUMARATE 25 MG TAB G-TUBE SCH (08:19)
[2015-07-11] MEDS: MIDODRINE 5 MG TAB G-TUBE SCH ×2 (08:19→21:34)
[2015-07-11] MEDS: LANSOPRAZOLE SOLUTAB 30 MG TAB NG SCH (08:20)
[2015-07-11] MEDS: PARoxetine HCL 20 MG TAB G-TUBE SCH (08:20)
[2015-07-11] MEDS: SODIUM CHLORIDE 0.9% FLUSH 5 ML FLUSH IVF SCH ×2 (08:20→21:00)
[2015-07-11] MEDS: GABAPENTIN 300 MG CAP G-TUBE SCH ×2 (08:20→21:34)
[2015-07-11] MEDS: fentaNYL 50 MCG/HR PATCH TD SCH (08:20)
[2015-07-11] MEDS: DOCUSATE SODIUM 100 MG/10 ML UDC PO SCH ×2 (08:20→21:34)
[2015-07-11] MEDS: SENNOSIDES SYRUP 8.8 MG/5 ML CUP PO SCH (08:20)
[2015-07-11] MEDS: ARTIFICIAL TEARS OPTH SOLN 15 ML BTL EACH EYE SCH ×3 (08:21→17:48)
[2015-07-11] MEDS: CHLORHEXIDINE 0.12% (ORAL KIT) 15 ML CUP MT SCH ×2 (08:21→21:35)
--- NOTE | 2015-07-11 10:13 | RADRPT ---
EXAM DATE/TIME: 07/11/2015 09:49 [facility] COMPARISON: CT THORAX W/O CONTRAST, January 25, 2015, 23:29. INDICATIONS : Respiratory failure; Evaluate for pneumothorax RADIATION DOSE: 5.13 CTDIvol (mGy) MEDICAL HISTORY : Parkinson's. Hypertension. Diabetes mellitus type 2. SURGICAL HISTORY : None. ENCOUNTER: Initial ACUITY: 1 day PAIN SCALE: Non-responsive LOCATION: Bilateral chest TECHNIQUE: Volumetric scanning of the chest was performed. Using automated exposure control and adjustment of t he mA and/or kV according to patient size, radiation dose was kept as low as reasonably achievable to obtain optimal diagnostic quality images. FINDINGS: LUNGS: Minimal patchy groundglass densities in upper lobes, right middle lobe and lingula. There is minimal bronchiectasis. Minimal patchy densities in the lower lobes. Tiny right anterior basilar pneumothorax . Tracheostomy tube in good position. Small right apical chest tube. PLEURAE: There is no pleural thickening or pleural effusion. MEDIASTINUM: The heart and great vessels demonstrate no acute abnormality. There is no mediastinal or hilar lymph adenopathy. AXILLAE: Within normal limits. No lymphadenopathy. MUSCULOSKELETAL: Within normal limits for patient age. MISCELLANEOUS: The visualized upper abdominal organs demonstrate no acute abnormality. Peg tube seen. CONCLUSION: Scattered patchy densities significantly improved from previous study. Tiny anterior right basilar pn eumothorax. Right-sided chest tube in good position. Néstor Matamoros MD on July 11, 2015 at 10:06 Board Certified Radiologist. This report was verified electronically.
--- NOTE | 2015-07-11 12:47 | HHI.PR ---
Subjective Remarks 54 YOWM with ChRF,Trach, multiple uti No fever Gets anxious On Fentanyl patch Has right chest tube CXR 8 mm residual PTX tolerates CPAP Objective Vital Signs Vital Signs Date Time Temp Pulse Resp B/P Pulse Ox O2 Delivery O2 Flow Rate FiO2 07/11/15 12:43 98 35 07/11/15 12:00 35 07/11/15 12:00 99 07/11/15 12:00 99.9 99 26 113/61 99 07/11/15 10:24 98 35 07/11/15 10:00 105 07/11/15 10:00 95 100 07/11/15 09:25 28 07/11/15 08:55 100 35 07/11/15 08:02 96 T-piece 40 07/11/15 08:00 100.0 104 47 156/76 97 07/11/15 08:00 100 07/11/15 08:00 35 07/11/15 06:00 100 07/11/15 04:00 35 07/11/15 04:00 98.7 91 21 128/64 98 07/11/15 04:00 91 07/11/15 03:55 96 T-piece 40 07/11/15 02:00 89 07/11/15 00:00 98.7 91 21 128/64 98 07/11/15 00:00 91 07/11/15 00:00 35 07/10/15 22:00 91 07/10/15 20:01 94 T-piece 40 07/10/15 20:00 98.4 87 21 111/58 94 07/10/15 20:00 87 07/10/15 20:00 35 07/10/15 18:00 77 07/10/15 16:00 84 07/10/15 16:00 98.3 82 21 93/51 100 07/10/15 16:00 35 07/10/15 14:00 83 I/O 07/10/15 07/10/15 07/10/15 07/11/15 07/11/15 07/11/15 06:59 14:59 22:59 06:59 14:59 22:59 Intake Total 514 ml 932 ml 666 ml 604 ml Output Total 500 ml 500 ml 400 ml 450 ml Balance 14 ml 432 ml 266 ml 154 ml IV Total 0 ml 0 ml Tube Feeding 514 ml 612 ml 546 ml 484 ml Other 320 ml 120 ml 120 ml Output Urine Total 500 ml 500 ml 400 ml 450 ml Tube Feeding Residual Discard 0 ml 0 ml Chest Tube Drainage Total 0 ml 0 ml 0 ml # Bowel Movements 1 1 1 Result Diagram: 07/11/1533707/11/15337 Objective Remarks GENERAL: MBMN male on Vent. SKIN: Warm and dry. HEAD: Normocephalic. EYES: No scleral icterus. No injection or drainage. NECK: Supple, trachea midline. No JVD or lymphadenopathy. has trach CARDIOVASCULAR: Regular rate and rhythm without murmurs, gallops, or rubs. RESPIRATORY: Breath sounds equal bilaterally. No accessory muscle use. Right chest tube to suction GASTROINTESTINAL: Abdomen soft, non-tender, nondistended. PEG tube in place MUSCULOSKELETAL: No cyanosis, or edema. BACK: Nontender without obvious deformity. No CVA tenderness. A/P Assessment and Plan VDRF S/P Trach Parkinson's diasease Dementia UTI Small PTX PLAN: ABX Meropenm, Diflucan and Tobra nebs TF Add Ativan 0.5 mg tid Cont CPAP CT to suction Severiano Ag MD Jul 11, 2015 12:47
[2015-07-11] MEDS: OLANZapine 2.5 MG TAB GT SCH (21:00)
[2015-07-11] MEDS: RESP: ALBUTEROL 2.5 MG/3 ML NEB (PRN) INH (21:09)
[2015-07-11] MEDS: ENOXAPARIN SODIUM 30 MG/0.3 ML SYRINGE SQ SCH (21:34)
[2015-07-12] VITALS (19 sets, daily range): BP systolic 96–104; BP diastolic 54–57; PULSE 67–89; RESP 16–21; TEMP 98.2–98.9; O2SAT 96–100
[2015-07-12] MEDS: CHLORHEXIDINE GLUCONATE 2 % 1 PACK (2 CLOTHS) TOP SCH (04:00)
[2015-07-12] MEDS: CARBIDOPA/LEVODOPA 25 MG/100 MG TAB GT SCH ×3 (06:11→21:30)
[2015-07-12] MEDS: clonazePAM 1 MG TAB PO SCH ×3 (06:11→21:30)
--- NOTE | 2015-07-12 06:21 | RADRPT ---
EXAM DATE/TIME: 07/12/2015 05:15 [facility] COMPARISON: CT THORAX W/O CONTRAST, July 11, 2015, 9:49. CHEST SINGLE AP, July 10, 2015, 4:53. CHEST SINGLE AP, July 11, 2015, 4:08. INDICATIONS : Shortness of breath, possible pulmonary disease. MEDICAL HISTORY : Hypertension. Gastroesophageal reflux disease. Diabetes mellitus type II. SURGICAL HISTORY : None. ENCOUNTER: Subsequent ACUITY: 3 weeks PAIN SCORE: Non-responsive. LOCATION: Bilateral chest FINDINGS: Right pigtail chest catheter remains projected at the right apex. No pneumothorax seen on the right side. On the left side, there is a reflection in the lateral one third of the lung which does not ex tend to the apex and is probably related to the soft tissue interface with the left arm. Both hemidi aphragms are well delineated. Some patchy infiltrates in both lungs is similar to prior examination. The heart is normal size. Tracheostomy in place. CONCLUSION: Stable position to the right apical pigtail chest tube. No pneumothorax seen. Tai Jaquez MD on July 12, 2015 at 6:16 Board Certified Radiologist. This report was verified electronically.
--- NOTE | 2015-07-12 07:55 | HHI.CCPN ---
Subjective Remarks/Hospital Course 06/17: Pt is a 54 yr man with multiple medial problems including Parkinson's disease, advanced dementia, hyponatremia, anxiety, pneumonia, GERD, cognitive disorder, and multidrug resistant UTI- ESBL02/19/15 , who resides in a longterm. Pt by report was found by staff in longterm to be less alert and having respiratory difficultly and fevers. Pt was brought to ED adn placed on ventilator. His workup was inclusive of labs, chest xray and ct head and abd/pelvis. WBC 16.4, +UTI, lactic acid 4, troponin ,0.02, BUN/ cre 18/ 0.76. CT head 06/18/15: diffuse atrophy unchanged. No acute intracranial findings ct abd/ pelvis with IV contrast: 06/18/15 Conclusion: 1. Chronic nonspecific urinary bladder wall thickening. Bladder collapsed with Putnam catheter in place. 2.Chronic bilateral mid to lower zone groundglass opacity. 3. Nonobstructing left renal calculus. 4. Distended rectum Pt admitted and fluid and abx ordered. 06/18: Drowsy, easily arousable. On mechanical ventilation via tracheostomy. Tachypneic. Resting tremor noted. 06/19: Drowsy, arousable. On mechanical ventilation via tracheostomy. 06/20: Drowsy, arousable. Remains on mechanical ventilation via tracheostomy. We'll repeat blood cultures, UA and urine cultures. Fluconazole IV added in view of yeast in urine. 07/06: Reconsulted as patient return to the ventilator on a right ventricular due to tachypnea. Low-grade temperatures. Tolerating tube feeding. Extremity encephalopathic demented patient with difficult neurological examination. 07/07: Status post chest tube placement by IR for right pneumothorax 07/06. Afebrile. Tolerating tube feeds. Positive BM. Currently tachypneic on the ventilator. Does not appear to be any acute distress. 07/08: Afebrile. Tolerating tube feeding. He is comfortable currently on CPAP trials 11/10. Positive BM. 07/09: Afebrile. Tolerating tube feeding. Appears comfortable on T bar. Positive BM. 07/10: Afebrile. Eyes are open. Remained on T piece overnight. Tolerating tube feeding. Subjective 07/11: MAXIMUM TEMPERATURE 100. Currently 98.6. Eyes are open. On ACV overnight secondary to "tachypnea and sweating". Switching back to PSV trials today. Goal is T piece during daytime, CPAP at night. Objective - Vital Signs Date Time Temp Pulse Resp B/P Pulse Ox O2 Delivery O2 Flow Rate FiO2 07/12/15 06:00 75 07/12/15 04:05 96 35 07/12/15 04:00 98.6 16 101/54 07/11/15 08:02 T-piece I/O 07/11/15 07/11/15 07/12/15 08:00 16:00 00:00 Intake Total 604 ml 583 ml 720 ml Output Total 450 ml 456 ml 350 ml Balance 154 ml 127 ml 370 ml Result Diagram: 07/11/15 0338 07/11/15 0338 Other Results Microbiology Date/Time Procedure Status Source Growth 07/07/15 20:30 Urine Culture - Final Complete Urine Catheterized Urine NO GROWTH IN 48 HOURS. 07/07/15 15:50 Aerobic Blood Culture - Preliminary Resulted Blood Peripheral NO GROWTH IN 4 DAYS 07/07/15 15:50 Anaerobic Blood Culture - Final Resulted Blood Peripheral QNS - SEE AEROBE REPORT 07/07/15 14:50 Gram Stain - Final Complete Sputum Endotracheal 07/07/15 14:50 Sputum Culture - Final Complete Sputum Endotracheal LIGHT GROWTH NORMAL RESPIRATORY ANGY Imaging Last Impressions Chest X-Ray 07/11/15 0600 Signed Impressions: Service Date/Time: Saturday, July 11, 2015 04:08 - CONCLUSION: Small right pneumothorax noted. Jeramie Manjarrez MD Chest CT 07/11/15 0000 Signed Impressions: Service Date/Time: Saturday, July 11, 2015 09:49 - CONCLUSION: Scattered patchy densities significantly improved from previous study. Tiny anterior right basilar pneumothorax. Right-sided chest tube in good position. Néstor Matamoros MD Chest Tube Insertion 07/07/15 0000 Signed Impressions: Service Date/Time: Tuesday, July 07, 2015 17:14 - CONCLUSION: Uncomplicated right chest tube placement as above. Tai Taylor Jr., MD Head CT 06/18/151902 Signed Impressions: Service Date/Time: June 19:31 - CONCLUSION: Diffuse atrophy unchanged. No acute intracranial findings. Kush Briscoe MD Abdomen/Pelvis CT 06/18/151902 Signed Impressions: Service Date/Time: June 19:36 - CONCLUSION: 1. Chronic nonspecific urinary bladder wall thickening. Bladder collapsed with Putnam catheter in place. 2. Chronic bilateral mid to lower lung zone groundglass opacity. 3. Nonobstructing left renal calculus. 4. Distended rectum. Kush Briscoe MD Objective Remarks GEN : 54-year-old male, arousable and opens eyes spontaneously currently on mechanical ventilation on the right. Tracheostomy SKIN: Stage II sacral decubitus ulcer., Right second toe with superficial ulcer HEAD: Atraumatic. Normocephalic. EYES: Pupils equal and round around 3 mm bilaterally and reactive. No scleral icterus. No injection or drainage. ENT: No nasal bleeding or discharge. Mucous membranes pink and moist. NECK: Trachea midline. No JVD. Tracheostomy is currently clean dry and intact CARDIOVASCULAR: Regular rate and rhythm. S1, S2. No S4. RESPIRATORY: Diminished. Few crackles heard bilateral lower lobes. Positive end expiratory wheeze. Right upper chest pigtail tube is clean dry and intact. GASTROINTESTINAL: Abdomen soft, non-tender, nondistended. PEG tube site left upper quadrant clean dry and intact MUSCULOSKELETAL: Extremities with bilateral contractures lower extremities. Positive resting tremor bilateral upper extremity. NEUROLOGICAL: Arousable on the ventilator Date of Insertion: June 24, 2015 A/P Assessment and Plan Neuro/Psych: Toxic metabolic Encephalopathy - acute on chronic Parkinson's disease Cognitive disorder NOS Underlying dementia? CT head 06/18/15: - diffuse atrophy unchanged. No acute intracranial findings on repeat exam in ICU pt is reactive and opens eyes immediately Continue Sinemet 25/100 3 times a day via PEG, Seroquel 25 mg twice a day, olanzapine 5 mg a night, Klonopin 2 mg every 8 hours, Paxil 20 daily and Neurontin 300 mg twice a day Continue Roxanol 5 mg every 4 hours when necessary pain and added fentanyl patch 50 g every 3 days on 07/07. Resp: VDRF Chronic trach, acute on chronic resp failure, pneumonia Right pneumothorax status post pigtail catheter Continue mechanical ventilation via tracheostomy ACV 16/500/5/35 -> PSV 10/5 35% Duo nebs 4 times a day and when necessary albuterol written Daily C Pap trials as tolerated. Pulmonology/Dr. Ag following Status post right pigtail chest tube by IR 07/06 -40 cm H2O. V. small intermittent leak. 6 cc yellowish output. Follow chest x-ray revealed 8 mm right-sided pneumothorax. Improved since off the ventilator. CT chest ordered 07/10 revealed a very tiny right apical pneumothorax. Chest x-ray 07/11 revealed no pneumothorax. Cardiac; History of orthostasis History of CAD, HLP, Hypertension Continue Midodrine 5 mg twice a day Watch for hypotension troponin <0.02 GI: Malnutrition/protein calorie - moderate Status post PEG Hemorrhoids Gastroesophageal reflux disease - Tolerating Jevity 1.5 at 60 cc an hour - Currently Prevacid 30 mg per PEG tube daily for GERD Current Colace/senna for bowel regimen. Positive bowel movements overnight 3 : Strict intake output, monitor and replete electrolytes, follow BUN/creatinine electrolyte replacement protocol ordered ID: Candiduria ESBL positive Klebsiella/Pseudomonas pneumonia MRSA colonization multidrug resistant UTI- ESBL02/19/15 , MRSA + 03/20/15 Heena glabrata in urine 03/19/15 On tobramycin aerosols twice a day. Stop date 15 days Recheck blood, sputum and urine cultures 07/06 all currently pending 06/17 - blood cultures 2 - CONS/staph epi 06/17 - sputum - ESBL positive Klebsiella/Pseudomonas 06/17 - urine - C. glabrata/tropicalis - treated with Diflucan Endo: If indicated sliding scale coverage Renal: Nonobstructing left renal calculus - Follow-up on BMP Heme Anemia - Follow-up on CBC MSK Bilateral lower extremity Contractures Stage II DU Wound care evaluate and treat DVT prof: scd and lovenox ordered GI prof: Prevacid Critical Care: The total care time was 35 minutes. Time to perform other separately billable procedures was not included in the critical care time. Chad Oleary MD Jul 12, 2015 07:55
[2015-07-12] MEDS: SENNOSIDES SYRUP 8.8 MG/5 ML CUP PO SCH (11:35)
[2015-07-12] MEDS: DOCUSATE SODIUM 100 MG/10 ML UDC PO SCH ×2 (11:35→20:01)
[2015-07-12] MEDS: QUEtiapine FUMARATE 25 MG TAB G-TUBE SCH ×2 (11:35→20:01)
[2015-07-12] MEDS: LANSOPRAZOLE SOLUTAB 30 MG TAB NG SCH (11:37)
[2015-07-12] MEDS: PARoxetine HCL 20 MG TAB G-TUBE SCH (11:37)
[2015-07-12] MEDS: LACTOBACILLUS ACIDOPHILUS TAB PO SCH ×3 (11:37→17:54)
[2015-07-12] MEDS: GABAPENTIN 300 MG CAP G-TUBE SCH ×2 (11:38→20:01)
[2015-07-12] MEDS: MIDODRINE 5 MG TAB G-TUBE SCH ×2 (11:39→21:00)
[2015-07-12] MEDS: ARTIFICIAL TEARS OPTH SOLN 15 ML BTL EACH EYE SCH ×3 (13:00→17:54)
--- NOTE | 2015-07-12 14:31 | HHI.PR ---
Subjective Remarks 54 YOWM with ChRF,Trach, multiple uti No fever Gets anxious On Fentanyl patch Has right chest tube tolerates CPAP Objective Vital Signs Vital Signs Date Time Temp Pulse Resp B/P Pulse Ox O2 Delivery O2 Flow Rate FiO2 07/12/15 12:17 98 35 07/12/15 12:00 40 07/12/15 10:24 100 T-piece 40 07/12/15 10:00 78 07/12/15 08:10 35 07/12/15 08:00 78 07/12/15 07:47 100 35 07/12/15 06:00 75 07/12/15 04:05 96 35 07/12/15 04:00 67 07/12/15 04:00 35 07/12/15 04:00 98.6 67 16 101/54 100 07/12/15 02:00 70 07/12/15 00:11 99 35 07/12/15 00:00 35 07/12/15 00:00 98.2 78 16 96/55 99 07/12/15 00:00 78 07/11/15 22:00 90 07/11/15 21:24 99 35 07/11/15 20:00 99.0 83 17 99/55 97 07/11/15 20:00 35 07/11/15 18:00 84 07/11/15 16:00 35 07/11/15 16:00 99.5 90 19 105/58 99 07/11/15 16:00 90 07/11/15 15:41 98 35 I/O 07/11/15 07/11/15 07/11/15 07/12/15 07/12/15 07/12/15 07:00 15:00 23:00 07:00 15:00 23:00 Intake Total 604 ml 583 ml 720 ml 500 ml Output Total 450 ml 456 ml 350 ml 300 ml Balance 154 ml 127 ml 370 ml 200 ml IV Total 0 ml Tube Feeding 484 ml 463 ml 600 ml 500 ml Tube Irrigant 120 ml Other 120 ml 120 ml Output Urine Total 450 ml 450 ml 350 ml 300 ml Chest Tube Drainage Total 0 ml 6 ml 0 ml # Bowel Movements 1 1 1 1 Result Diagram: 07/11/15 0338 07/11/15 0338 Objective Remarks GENERAL: MBMN male on Vent. SKIN: Warm and dry. HEAD: Normocephalic. EYES: No scleral icterus. No injection or drainage. NECK: Supple, trachea midline. No JVD or lymphadenopathy. has trach CARDIOVASCULAR: Regular rate and rhythm without murmurs, gallops, or rubs. RESPIRATORY: Breath sounds equal bilaterally. No accessory muscle use. Right chest tube to suction GASTROINTESTINAL: Abdomen soft, non-tender, nondistended. PEG tube in place MUSCULOSKELETAL: No cyanosis, or edema. BACK: Nontender without obvious deformity. No CVA tenderness. A/P Assessment and Plan VDRF S/P Trach Parkinson's diasease Dementia UTI Small PTX PLAN: ABX Meropenm, Diflucan and Tobra nebs TF Add Ativan 0.5 mg tid Cont CPAP CT to suction CXR in AM Severiano Ag MD Jul 12, 2015 14:30
[2015-07-12] MEDS: RESP: SODIUM CHLORIDE 3% 4 ML NEB NEB SCH ×2 (15:23→20:24)
[2015-07-12] MEDS: RESP: ALBUTEROL 2.5 MG/IPRATROPIUM 0.5 MG NEB (SCH) NEB ×2 (15:23→20:24)
[2015-07-12] MEDS: SODIUM CHLORIDE 0.9% FLUSH 5 ML FLUSH IVF SCH ×2 (15:41→20:01)
[2015-07-12] MEDS: MORPHINE SULFATE ORAL SOLN 10 MG/0.5 ML SYRINGE PO PRN (15:43)
[2015-07-12] MEDS: CHLORHEXIDINE 0.12% (ORAL KIT) 15 ML CUP MT SCH ×2 (15:45→20:01)
[2015-07-12] MEDS: OLANZapine 2.5 MG TAB GT SCH (20:01)
[2015-07-12] MEDS: ENOXAPARIN SODIUM 30 MG/0.3 ML SYRINGE SQ SCH (21:30)
[2015-07-13] VITALS (18 sets, daily range): BP systolic 88–128; BP diastolic 51–73; PULSE 78–87; RESP 19–24; TEMP 98.2–98.8; O2SAT 98–100
[2015-07-13] MEDS: CHLORHEXIDINE GLUCONATE 2 % 1 PACK (2 CLOTHS) TOP SCH (03:44)
[2015-07-13] MEDS: RESP: ALBUTEROL 2.5 MG/IPRATROPIUM 0.5 MG NEB (SCH) NEB ×4 (04:11→20:22)
[2015-07-13] MEDS: RESP: SODIUM CHLORIDE 3% 4 ML NEB NEB SCH ×4 (04:12→20:22)
[2015-07-13] MEDS: CARBIDOPA/LEVODOPA 25 MG/100 MG TAB GT SCH ×3 (05:08→20:55)
[2015-07-13] MEDS: clonazePAM 1 MG TAB PO SCH ×3 (05:09→20:55)
[2015-07-13] MEDS: MORPHINE SULFATE ORAL SOLN 10 MG/0.5 ML SYRINGE PO PRN ×2 (05:30→18:10)
--- NOTE | 2015-07-13 05:40 | RADRPT ---
EXAM DATE/TIME: 07/13/2015 04:38 [facility] COMPARISON: CHEST SINGLE AP, July 12, 2015, 5:15. INDICATIONS : Shortness of breath, possible pulmonary disease. MEDICAL HISTORY : Hypertension. Gastroesophageal reflux disease. Diabetes mellitus type II. SURGICAL HISTORY : None. ENCOUNTER: Subsequent ACUITY: 3 weeks PAIN SCORE: Non-responsive. LOCATION: Bilateral chest FINDINGS: Portable AP view of the chest demonstrates a normal-sized cardiac silhouette. Tracheostomy is present . A right chest tube is present. No pneumothorax is visualized. There is no effusion or airspace cons olidation. CONCLUSION: Stable chest x-ray. No pneumothorax is visualized. Erlin Barajas MD on July 13, 2015 at 5:36 Board Certified Radiologist. This report was verified electronically.
[2015-07-13 07:54] LABS: AUTOMATED NEUTROPHIL # 5.5 TH/MM3 (1.8-7.7); BASOPHIL # 0.1 TH/MM3 (0-0.2); BASOPHIL % 0.7 % (0.0-2.0); EOSINOPHIL # 0.8 TH/MM3 (0-0.4); HEMO FLAGS DIFF FINAL; LYMPH % 16.7 % (9.0-44.0); LYMPHOCYTE # 1.4 TH/MM3 (1.0-4.8); MEAN CELL VOLUME 92.6 FL (80.0-100.0); MEAN CORPUSCULAR HEMOGLOBIN 29.6 PG (27.0-34.0); MONO % 7.8 % (0.0-8.0); NEUT % 64.8 % (16.0-70.0); PLATELET COUNT 169 TH/MM3 (150-450); RED BLOOD COUNT 3.67 MIL/MM3 (4.50-5.90); RED CELL DISTRIBUTION WIDTH 13.3 % (11.6-17.2); WHITE BLOOD COUNT 8.5 TH/MM3 (4.0-11.0)
[2015-07-13] MEDS: CHLORHEXIDINE 0.12% (ORAL KIT) 15 ML CUP MT SCH ×2 (08:00→20:00)
[2015-07-13 08:22] LABS: ALKALINE PHOSPHATASE 70 U/L (45-117); ALT (GPT) 10 U/L (12-78); ANION GAP 10 MEQ/L (5-15); AST (GOT) 14 U/L (15-37); BICARBONATE 35.3 MEQ/L (21.0-32.0); BLOOD UREA NITROGEN 27 MG/DL (7-18); CHLORIDE 99 MEQ/L (98-107); GLOMERULAR FILTRATION RATE 129 ML/MIN (>89); SODIUM (NA) 144 MEQ/L (136-145); TOTAL BILIRUBIN ADULT 0.4 MG/DL (0.2-1.0)
[2015-07-13] MEDS: LANSOPRAZOLE SOLUTAB 30 MG TAB NG SCH (09:00)
[2015-07-13] MEDS: ARTIFICIAL TEARS OPTH SOLN 15 ML BTL EACH EYE SCH ×3 (09:00→18:00)
[2015-07-13] MEDS: SENNOSIDES SYRUP 8.8 MG/5 ML CUP PO SCH (09:00)
[2015-07-13] MEDS: PARoxetine HCL 20 MG TAB G-TUBE SCH (09:00)
[2015-07-13] MEDS: QUEtiapine FUMARATE 25 MG TAB G-TUBE SCH ×2 (09:00→20:55)
[2015-07-13] MEDS: MIDODRINE 5 MG TAB G-TUBE SCH ×2 (09:00→20:55)
[2015-07-13] MEDS: SODIUM CHLORIDE 0.9% FLUSH 5 ML FLUSH IVF SCH ×2 (09:00→20:55)
[2015-07-13] MEDS: DOCUSATE SODIUM 100 MG/10 ML UDC PO SCH ×2 (09:00→20:55)
[2015-07-13] MEDS: GABAPENTIN 300 MG CAP G-TUBE SCH ×2 (09:00→20:54)
[2015-07-13] MEDS: LACTOBACILLUS ACIDOPHILUS TAB PO SCH ×3 (09:00→18:00)
--- NOTE | 2015-07-13 14:22 | HHI.CCPN ---
Subjective Remarks/Hospital Course 06/17: Pt is a 54 yr man with multiple medial problems including Parkinson's disease, advanced dementia, hyponatremia, anxiety, pneumonia, GERD, cognitive disorder, and multidrug resistant UTI- ESBL02/19/15 , who resides in a correction. Pt by report was found by staff in correction to be less alert and having respiratory difficultly and fevers. Pt was brought to ED adn placed on ventilator. His workup was inclusive of labs, chest xray and ct head and abd/pelvis. WBC 16.4, +UTI, lactic acid 4, troponin ,0.02, BUN/ cre 18/ 0.76. CT head 06/18/15: diffuse atrophy unchanged. No acute intracranial findings ct abd/ pelvis with IV contrast: 06/18/15 Conclusion: 1. Chronic nonspecific urinary bladder wall thickening. Bladder collapsed with Putnam catheter in place. 2.Chronic bilateral mid to lower zone groundglass opacity. 3. Nonobstructing left renal calculus. 4. Distended rectum Pt admitted and fluid and abx ordered. 06/18: Drowsy, easily arousable. On mechanical ventilation via tracheostomy. Tachypneic. Resting tremor noted. 06/19: Drowsy, arousable. On mechanical ventilation via tracheostomy. 06/20: Drowsy, arousable. Remains on mechanical ventilation via tracheostomy. We'll repeat blood cultures, UA and urine cultures. Fluconazole IV added in view of yeast in urine. 07/06: Reconsulted as patient return to the ventilator on a right ventricular due to tachypnea. Low-grade temperatures. Tolerating tube feeding. Extremity encephalopathic demented patient with difficult neurological examination. 07/07: Status post chest tube placement by IR for right pneumothorax 07/06. Afebrile. Tolerating tube feeds. Positive BM. Currently tachypneic on the ventilator. Does not appear to be any acute distress. 07/08: Afebrile. Tolerating tube feeding. He is comfortable currently on CPAP trials 11/10. Positive BM. 07/09: Afebrile. Tolerating tube feeding. Appears comfortable on T bar. Positive BM. 07/10: Afebrile. Eyes are open. Remained on T piece overnight. Tolerating tube feeding. Subjective 07/11: MAXIMUM TEMPERATURE 100. Currently 98.6. Eyes are open. On ACV overnight secondary to "tachypnea and sweating". Switching back to PSV trials today. Goal is T piece during daytime, CPAP at night. 07/12: No acute events overnight. On PSV 20/06 -attempt TP up to 6 hours today. No pneumothorax on chest x-ray Objective - Vital Signs Date Time Temp Pulse Resp B/P Pulse Ox O2 Delivery O2 Flow Rate FiO2 07/13/15 12:00 78 07/13/15 12:00 98.2 22 112/63 07/13/15 11:07 98 35 07/12/15 10:24 T-piece I/O 07/12/15 07/12/15 07/13/15 08:00 16:00 00:00 Intake Total 500 ml 612 ml 283 ml Output Total 300 ml 450 ml 450 ml Balance 200 ml 162 ml -167 ml Result Diagram: 07/13/15 0540 07/13/15 0548 Other Results Microbiology Date/Time Procedure Status Source Growth 07/07/15 20:30 Urine Culture - Final Complete Urine Catheterized Urine NO GROWTH IN 48 HOURS. 07/07/15 15:50 Aerobic Blood Culture - Preliminary Resulted Blood Peripheral NO GROWTH IN 4 DAYS 07/07/15 15:50 Anaerobic Blood Culture - Final Resulted Blood Peripheral QNS - SEE AEROBE REPORT 07/07/15 14:50 Gram Stain - Final Complete Sputum Endotracheal 07/07/15 14:50 Sputum Culture - Final Complete Sputum Endotracheal LIGHT GROWTH NORMAL RESPIRATORY ANGY Imaging Last Impressions Chest X-Ray 07/11/15 0600 Signed Impressions: Service Date/Time: Saturday, July 11, 2015 04:08 - CONCLUSION: Small right pneumothorax noted. Jeramie Manjarrez MD Chest CT 07/11/15 0000 Signed Impressions: Service Date/Time: Saturday, July 11, 2015 09:49 - CONCLUSION: Scattered patchy densities significantly improved from previous study. Tiny anterior right basilar pneumothorax. Right-sided chest tube in good position. Néstor Matamoros MD Chest Tube Insertion 07/07/15 0000 Signed Impressions: Service Date/Time: Tuesday, July 07, 2015 17:14 - CONCLUSION: Uncomplicated right chest tube placement as above. Tai Taylor Jr., MD Head CT 06/18/15 1903 Signed Impressions: Service Date/Time: June 19:31 - CONCLUSION: Diffuse atrophy unchanged. No acute intracranial findings. Kush Briscoe MD Abdomen/Pelvis CT 06/18/15 1903 Signed Impressions: Service Date/Time: June 19:36 - CONCLUSION: 1. Chronic nonspecific urinary bladder wall thickening. Bladder collapsed with Putnam catheter in place. 2. Chronic bilateral mid to lower lung zone groundglass opacity. 3. Nonobstructing left renal calculus. 4. Distended rectum. Kush Briscoe MD Objective Remarks GEN : 54-year-old male, arousable and opens eyes spontaneously currently on mechanical ventilation on PSV. Tracheostomy SKIN: Stage II sacral decubitus ulcer., Right second toe with superficial ulcer HEAD: Atraumatic. Normocephalic. EYES: Pupils equal and round around 3 mm bilaterally and reactive. No scleral icterus. No injection or drainage. ENT: No nasal bleeding or discharge. Mucous membranes pink and moist. NECK: Trachea midline. No JVD. Tracheostomy is currently clean dry and intact CARDIOVASCULAR: Regular rate and rhythm. S1, S2. No S4. RESPIRATORY: Diminished. Few crackles heard bilateral lower lobes. Positive end expiratory wheeze. Right upper chest pigtail tube is clean dry and intact. GASTROINTESTINAL: Abdomen soft, non-tender, nondistended. PEG tube site left upper quadrant clean dry and intact MUSCULOSKELETAL: Extremities with bilateral contractures lower extremities. Positive resting tremor bilateral upper extremity. NEUROLOGICAL: Arousable on the ventilator. Bilateral extremity contractures limited exam Date of Insertion: June 24, 2015 A/P Assessment and Plan Neuro/Psych: Toxic metabolic Encephalopathy - acute on chronic Parkinson's disease Cognitive disorder/Underlying dementia? CT head 06/18/15: - diffuse atrophy unchanged. No acute intracranial findings Continue Sinemet 25/100 3 times a day via PEG, Seroquel 25 mg twice a day, olanzapine 5 mg a night, Klonopin 2 mg every 8 hours, Paxil 20 daily and Neurontin 300 mg twice a day Continue Roxanol 5 mg every 4 hours when necessary pain and started fentanyl patch 50 g every 3 days on 07/07. Resp: Acute on chronic respiratory failure Chronic trach, acute on chronic resp failure, pneumonia Right pneumothorax status post pigtail catheter Continue mechanical ventilation via tracheostomy-PSV 15/5 35%; wean to TPs as tolerated. Duo nebs 4 times a day and when necessary albuterol written Pulmonology/Dr. Ag following Status post right pigtail chest tube by IR 07/06 -40 cm H2O. V. small intermittent leak. 6 cc yellowish output. Follow chest x-ray revealed 8 mm right-sided pneumothorax. Improved since off the ventilator. CT chest ordered 07/10 revealed a very tiny right apical pneumothorax. Chest x- ray 07/11, 07/12 revealed no pneumothorax. Cardiac History of orthostasis History of CAD, HLP, Hypertension Continue Midodrine 5 mg twice a day Watch for hypotension troponin <0.02 GI: Malnutrition/protein calorie - moderate Status post PEG Hemorrhoids Gastroesophageal reflux disease - Tolerating Jevity 1.5 at 60 cc an hour - Currently Prevacid 30 mg per PEG tube daily for GERD - Current Colace/senna for bowel regimen. Positive bowel movements overnight 3 : - Strict intake output, monitor and replete electrolytes, follow BUN/creatinine - electrolyte replacement protocol ordered ID: Candiduria ESBL positive Klebsiella/Pseudomonas pneumonia MRSA colonization - multidrug resistant UTI- ESBL02/19/15 , MRSA + 03/20/15 - Heena glabrata in urine 03/19/15 - On tobramycin aerosols twice a day. Stop date 15 days - Recheck blood, sputum and urine cultures 07/06 all currently pending - 06/17 - blood cultures 2 - CONS/staph epi - 06/17 - sputum - ESBL positive Klebsiella/Pseudomonas - 06/17 - urine - C. glabrata/tropicalis - treated with Diflucan Endo: - If indicated sliding scale coverage Renal: Nonobstructing left renal calculus - Follow-up on BMP Heme Anemia - Follow-up on CBC MSK Bilateral lower extremity Contractures Stage II DU - Wound care evaluate and treat DVT prof: scd and Lovenox ordered GI prof: Prevacid Critical Care: The total care time was 30 minutes. Hilario Kern MD Jul 13, 2015 14:22
--- NOTE | 2015-07-13 15:32 | HHI.PR ---
Subjective Remarks 54 YOWM with ChRF,Trach, multiple uti No fever Gets anxious On Fentanyl patch Has right chest tube tolerates CPAP no new complaint Objective Vital Signs Vital Signs Date Time Temp Pulse Resp B/P Pulse Ox O2 Delivery O2 Flow Rate FiO2 07/13/15 12:00 78 07/13/15 12:00 98.2 82 22 112/63 07/13/15 11:07 98 35 07/13/15 10:00 82 07/13/15 09:52 99 35 07/13/15 08:00 80 07/13/15 08:00 98.7 80 22 111/60 98 07/13/15 08:00 35 07/13/15 06:09 20 07/13/15 06:00 86 07/13/15 04:17 100 35 07/13/15 04:00 98.2 82 24 115/68 98 07/13/15 04:00 82 07/13/15 04:00 35 07/13/15 02:00 80 07/13/15 01:32 98 35 07/13/15 00:00 98.7 84 20 88/51 98 07/13/15 00:00 84 07/13/15 00:00 35 07/12/15 22:36 96 35 07/12/15 22:00 89 07/12/15 20:26 97 35 07/12/15 20:00 35 07/12/15 20:00 98.9 89 21 104/57 98 07/12/15 20:00 89 07/12/15 18:11 78 07/12/15 16:00 67 07/12/15 16:00 35 07/12/15 16:00 98 35 I/O 07/12/15 07/12/15 07/12/15 07/13/15 07/13/15 07/13/15 06:59 14:59 22:59 06:59 14:59 22:59 Intake Total 500 ml 612 ml 283 ml 759 ml Output Total 300 ml 450 ml 450 ml 500 ml Balance 200 ml 162 ml -167 ml 259 ml IV Total 0 ml Tube Feeding 500 ml 462 ml 123 ml 599 ml Other 150 ml 160 ml 160 ml Output Urine Total 300 ml 450 ml 450 ml 500 ml # Bowel Movements 1 1 2 Result Diagram: 07/13/15 0540 07/13/15 0548 Objective Remarks GENERAL: MBMN male on Vent. SKIN: Warm and dry. HEAD: Normocephalic. EYES: No scleral icterus. No injection or drainage. NECK: Supple, trachea midline. No JVD or lymphadenopathy. has trach CARDIOVASCULAR: Regular rate and rhythm without murmurs, gallops, or rubs. RESPIRATORY: Breath sounds equal bilaterally. No accessory muscle use. Right chest tube to suction GASTROINTESTINAL: Abdomen soft, non-tender, nondistended. PEG tube in place MUSCULOSKELETAL: No cyanosis, or edema. BACK: Nontender without obvious deformity. No CVA tenderness. A/P Assessment and Plan VDRF S/P Trach Parkinson's diasease Dementia UTI Small PTX PLAN: ABX Meropenm, Diflucan and Tobra nebs TF Add Ativan 0.5 mg tid Cont CPAP CT to suction T-Tube trial. Severiano Ag MD Jul 13, 2015 15:32
[2015-07-13] MEDS: OLANZapine 2.5 MG TAB GT SCH (20:55)
[2015-07-13] MEDS: ENOXAPARIN SODIUM 30 MG/0.3 ML SYRINGE SQ SCH (20:56)
[2015-07-14] VITALS (19 sets, daily range): BP systolic 106–155; BP diastolic 59–78; PULSE 72–82; RESP 18–37; TEMP 98.4–98.8; O2SAT 96–100
[2015-07-14] MEDS: RESP: SODIUM CHLORIDE 3% 4 ML NEB NEB SCH ×4 (02:48→21:47)
[2015-07-14] MEDS: RESP: ALBUTEROL 2.5 MG/IPRATROPIUM 0.5 MG NEB (SCH) NEB ×4 (02:48→21:47)
[2015-07-14] MEDS: MORPHINE SULFATE ORAL SOLN 10 MG/0.5 ML SYRINGE PO PRN (02:54)
[2015-07-14] MEDS: CHLORHEXIDINE GLUCONATE 2 % 1 PACK (2 CLOTHS) TOP SCH (04:00)
[2015-07-14] MEDS: CARBIDOPA/LEVODOPA 25 MG/100 MG TAB GT SCH ×3 (06:23→21:51)
[2015-07-14] MEDS: clonazePAM 1 MG TAB PO SCH ×3 (06:23→21:50)
[2015-07-14] MEDS: REMOVE OLD PATCH TD SCH (08:00)
[2015-07-14] MEDS: SODIUM CHLORIDE 0.9% FLUSH 5 ML FLUSH IVF SCH ×2 (09:00→21:00)
[2015-07-14] MEDS: ARTIFICIAL TEARS OPTH SOLN 15 ML BTL EACH EYE SCH ×3 (09:00→18:00)
[2015-07-14] MEDS: DOCUSATE SODIUM 100 MG/10 ML UDC PO SCH ×2 (10:05→21:51)
[2015-07-14] MEDS: SENNOSIDES SYRUP 8.8 MG/5 ML CUP PO SCH (10:05)
[2015-07-14] MEDS: fentaNYL 50 MCG/HR PATCH TD SCH (10:06)
[2015-07-14] MEDS: MIDODRINE 5 MG TAB G-TUBE SCH ×2 (10:07→21:50)
[2015-07-14] MEDS: LACTOBACILLUS ACIDOPHILUS TAB PO SCH ×3 (10:07→18:00)
[2015-07-14] MEDS: LANSOPRAZOLE SOLUTAB 30 MG TAB NG SCH (10:07)
[2015-07-14] MEDS: PARoxetine HCL 20 MG TAB G-TUBE SCH (10:07)
[2015-07-14] MEDS: GABAPENTIN 300 MG CAP G-TUBE SCH ×2 (10:07→21:50)
[2015-07-14] MEDS: QUEtiapine FUMARATE 25 MG TAB G-TUBE SCH ×2 (10:07→21:51)
--- NOTE | 2015-07-14 13:57 | HHI.CCPN ---
Subjective Remarks/Hospital Course 06/17: Pt is a 54 yr man with multiple medial problems including Parkinson's disease, advanced dementia, hyponatremia, anxiety, pneumonia, GERD, cognitive disorder, and multidrug resistant UTI- ESBL02/19/15 , who resides in a care home. Pt by report was found by staff in care home to be less alert and having respiratory difficultly and fevers. Pt was brought to ED adn placed on ventilator. His workup was inclusive of labs, chest xray and ct head and abd/pelvis. WBC 16.4, +UTI, lactic acid 4, troponin ,0.02, BUN/ cre 18/ 0.76. CT head 06/18/15: diffuse atrophy unchanged. No acute intracranial findings ct abd/ pelvis with IV contrast: 06/18/15 Conclusion: 1. Chronic nonspecific urinary bladder wall thickening. Bladder collapsed with Putnam catheter in place. 2.Chronic bilateral mid to lower zone groundglass opacity. 3. Nonobstructing left renal calculus. 4. Distended rectum Pt admitted and fluid and abx ordered. 06/18: Drowsy, easily arousable. On mechanical ventilation via tracheostomy. Tachypneic. Resting tremor noted. 06/19: Drowsy, arousable. On mechanical ventilation via tracheostomy. 06/20: Drowsy, arousable. Remains on mechanical ventilation via tracheostomy. We'll repeat blood cultures, UA and urine cultures. Fluconazole IV added in view of yeast in urine. 07/06: Reconsulted as patient return to the ventilator on a right ventricular due to tachypnea. Low-grade temperatures. Tolerating tube feeding. Extremity encephalopathic demented patient with difficult neurological examination. 07/07: Status post chest tube placement by IR for right pneumothorax 07/06. Afebrile. Tolerating tube feeds. Positive BM. Currently tachypneic on the ventilator. Does not appear to be any acute distress. 07/08: Afebrile. Tolerating tube feeding. He is comfortable currently on CPAP trials 11/10. Positive BM. 07/09: Afebrile. Tolerating tube feeding. Appears comfortable on T bar. Positive BM. 07/10: Afebrile. Eyes are open. Remained on T piece overnight. Tolerating tube feeding. 07/11: MAXIMUM TEMPERATURE 100. Currently 98.6. Eyes are open. On ACV overnight secondary to "tachypnea and sweating". Switching back to PSV trials today. Goal is T piece during daytime, CPAP at night. 07/12: No acute events overnight. On PSV 20/06 -attempt TP up to 6 hours today. No pneumothorax on chest x-ray Subjective 07/13: Placed back on full ventilator support for tachypnea. Otherwise clinically unchanged. No fever today Objective - Vital Signs Date Time Temp Pulse Resp B/P Pulse Ox O2 Delivery O2 Flow Rate FiO2 07/14/15 12:27 96 35 07/14/15 12:00 98.8 82 18 128/61 07/14/15 09:40 T-piece 6.00 I/O 07/13/15 07/13/15 07/14/15 08:00 16:00 00:00 Intake Total 759 ml 700 ml 1100 ml Output Total 500 ml 660 ml 700 ml Balance 259 ml 40 ml 400 ml Result Diagram: 07/13/15 0540 07/13/15 0548 Other Results Microbiology Date/Time Procedure Status Source Growth 07/07/15 20:30 Urine Culture - Final Complete Urine Catheterized Urine NO GROWTH IN 48 HOURS. 07/07/15 15:50 Aerobic Blood Culture - Preliminary Resulted Blood Peripheral NO GROWTH IN 4 DAYS 07/07/15 15:50 Anaerobic Blood Culture - Final Resulted Blood Peripheral QNS - SEE AEROBE REPORT 07/07/15 14:50 Gram Stain - Final Complete Sputum Endotracheal 07/07/15 14:50 Sputum Culture - Final Complete Sputum Endotracheal LIGHT GROWTH NORMAL RESPIRATORY ANGY Imaging Last Impressions Chest X-Ray 07/11/15 0600 Signed Impressions: Service Date/Time: Saturday, July 11, 2015 04:08 - CONCLUSION: Small right pneumothorax noted. Jeramie Manjarrez MD Chest CT 07/11/15 0000 Signed Impressions: Service Date/Time: Saturday, July 11, 2015 09:49 - CONCLUSION: Scattered patchy densities significantly improved from previous study. Tiny anterior right basilar pneumothorax. Right-sided chest tube in good position. Néstor Matamoros MD Chest Tube Insertion 07/07/15 0000 Signed Impressions: Service Date/Time: Tuesday, July 07, 2015 17:14 - CONCLUSION: Uncomplicated right chest tube placement as above. Tai Taylor Jr., MD Head CT 06/18/15 1903 Signed Impressions: Service Date/Time: June 19:31 - CONCLUSION: Diffuse atrophy unchanged. No acute intracranial findings. Kush Briscoe MD Abdomen/Pelvis CT 06/18/15 1903 Signed Impressions: Service Date/Time: June 19:36 - CONCLUSION: 1. Chronic nonspecific urinary bladder wall thickening. Bladder collapsed with Putnam catheter in place. 2. Chronic bilateral mid to lower lung zone groundglass opacity. 3. Nonobstructing left renal calculus. 4. Distended rectum. Kush Briscoe MD Objective Remarks GEN : 54-year-old male, arousable and opens eyes spontaneously currently on mechanical ventilation on PSV. Tracheostomy SKIN: Stage II sacral decubitus ulcer. Right second toe with superficial ulcer HEAD: Atraumatic. Normocephalic. EYES: Pupils equal and round around 3 mm bilaterally and reactive. No scleral icterus. No injection or drainage. ENT: No nasal bleeding or discharge. Mucous membranes pink and moist. NECK: Trachea midline. No JVD. Tracheostomy is currently clean dry and intact CARDIOVASCULAR: Regular rate and rhythm. S1, S2. No S4. RESPIRATORY: Diminished. Few crackles heard bilateral lower lobes. Positive end expiratory wheeze. Right upper chest pigtail tube is clean dry and intact. GASTROINTESTINAL: Abdomen soft, non-tender, nondistended. PEG tube site left upper quadrant clean dry and intact MUSCULOSKELETAL: Extremities with bilateral contractures lower extremities. Positive resting tremor bilateral upper extremity. NEUROLOGICAL: Arousable on the ventilator. Bilateral extremity contractures limited exam Date of Insertion: June 24, 2015 A/P Assessment and Plan Neuro/Psych: Toxic metabolic Encephalopathy - acute on chronic Parkinson's disease Cognitive disorder/Underlying dementia? CT head 06/18/15: - diffuse atrophy unchanged. No acute intracranial findings Continue Sinemet 25/100 3 times a day via PEG, Seroquel 25 mg twice a day, olanzapine 5 mg a night, Klonopin 2 mg every 8 hours, Paxil 20 daily and Neurontin 300 mg twice a day Continue Roxanol 5 mg every 4 hours when necessary pain and started fentanyl patch 50 g every 3 days on 07/07. Resp: Acute on chronic respiratory failure Chronic trach, acute on chronic resp failure, pneumonia Right pneumothorax status post pigtail catheter Continue mechanical ventilation via tracheostomy-PSV 15/5 35%; wean to TPs as tolerated. Duo nebs 4 times a day and when necessary albuterol written Pulmonology/Dr. Ag following Status post right pigtail chest tube by IR 07/06 -40 cm H2O. V. small intermittent leak. 6 cc yellowish output. Follow chest x-ray revealed 8 mm right-sided pneumothorax. CT chest ordered 07/10 revealed a very tiny right apical pneumothorax. Chest x-ray 07/11, 07/12 revealed no pneumothorax. Cardiac History of orthostasis History of CAD, HLP, Hypertension Continue Midodrine 5 mg twice a day Watch for hypotension troponin <0.02 GI: Malnutrition/protein calorie - moderate Status post PEG Hemorrhoids Gastroesophageal reflux disease - Tolerating Jevity 1.5 at 60 cc an hour - Currently Prevacid 30 mg per PEG tube daily for GERD - Current Colace/senna for bowel regimen. Positive bowel movements : - Strict intake output, monitor and replete electrolytes, follow BUN/creatinine - electrolyte replacement protocol ordered ID: Candiduria ESBL positive Klebsiella/Pseudomonas pneumonia MRSA colonization - multidrug resistant UTI- ESBL02/19/15 , MRSA + 03/20/15 - Heena glabrata in urine 03/19/15 - On tobramycin aerosols twice a day. Stop date 15 days - Recheck blood, sputum and urine cultures 07/06 all currently pending - 06/17 - blood cultures 2 - CONS/staph epi - 06/17 - sputum - ESBL positive Klebsiella/Pseudomonas - 06/17 - urine - C. glabrata/tropicalis - treated with Diflucan Endo: - If indicated sliding scale coverage Renal: Nonobstructing left renal calculus - Follow-up on BMP Heme Anemia - Follow-up on CBC MSK Bilateral lower extremity Contractures Stage II DU - Wound care evaluate and treat DVT prof: scd and Lovenox ordered GI prof: Prevacid Critical Care: The total care time was 30 minutes. Hilario Kern MD Jul 14, 2015 13:57
--- NOTE | 2015-07-14 18:20 | HHI.PR ---
Subjective Remarks 54 YOWM with ChRF,Trach, multiple uti No fever Gets anxious On Fentanyl patch Has right chest tube tolerates T-Tube no new complaint CXR no PTX Objective Vital Signs Vital Signs Date Time Temp Pulse Resp B/P Pulse Ox O2 Delivery O2 Flow Rate FiO2 07/14/15 16:50 99 35 07/14/15 14:00 79 07/14/15 12:27 96 35 07/14/15 12:00 98.8 82 18 128/61 98 07/14/15 12:00 79 07/14/15 12:00 35 07/14/15 10:00 79 07/14/15 09:40 100 T-piece 6.00 35 07/14/15 08:44 100 35 07/14/15 08:00 98.8 81 21 127/66 100 07/14/15 08:00 79 07/14/15 08:00 35 07/14/15 07:52 98.8 81 21 127/66 100 07/14/15 07:52 35 07/14/15 06:00 79 07/14/15 04:00 35 07/14/15 04:00 81 07/14/15 04:00 98.8 81 21 155/78 100 07/14/15 03:28 99 35 07/14/15 02:00 76 07/14/15 00:00 78 07/14/15 00:00 98.4 78 26 106/60 100 07/14/15 00:00 35 07/13/15 23:50 100 35 07/13/15 22:00 87 07/13/15 20:25 99 35 07/13/15 20:00 35 07/13/15 20:00 87 07/13/15 20:00 98.8 87 19 128/73 99 I/O 07/13/15 07/13/15 07/13/15 07/14/15 07/14/15 07/14/15 07:00 15:00 23:00 07:00 15:00 23:00 Intake Total 759 ml 700 ml 1100 ml 494 ml 780 ml Output Total 500 ml 660 ml 700 ml 300 ml 1800 ml Balance 259 ml 40 ml 400 ml 194 ml -1020 ml Tube Feeding 599 ml 550 ml 900 ml 394 ml 580 ml Other 160 ml 150 ml 200 ml 100 ml 200 ml Output Urine Total 500 ml 650 ml 700 ml 300 ml 1800 ml Chest Tube Drainage Total 10 ml # Bowel Movements 2 1 1 1 1 Result Diagram: 07/13/15 0540 07/13/15 0548 Objective Remarks GENERAL: MBMN male on Vent. SKIN: Warm and dry. HEAD: Normocephalic. EYES: No scleral icterus. No injection or drainage. NECK: Supple, trachea midline. No JVD or lymphadenopathy. has trach CARDIOVASCULAR: Regular rate and rhythm without murmurs, gallops, or rubs. RESPIRATORY: Breath sounds equal bilaterally. No accessory muscle use. Right chest tube to suction GASTROINTESTINAL: Abdomen soft, non-tender, nondistended. PEG tube in place MUSCULOSKELETAL: No cyanosis, or edema. BACK: Nontender without obvious deformity. No CVA tenderness. A/P Assessment and Plan VDRF S/P Trach Parkinson's diasease Dementia UTI Small PTX--resolved PLAN: ABX Meropenm, Diflucan and Tobra nebs TF Add Ativan 0.5 mg tid Cont CPAP CT to suction T-Tube Clamp Chest tube Severiano Ag MD Jul 14, 2015 18:20
[2015-07-14] MEDS: ENOXAPARIN SODIUM 30 MG/0.3 ML SYRINGE SQ SCH (21:51)
[2015-07-14] MEDS: OLANZapine 2.5 MG TAB GT SCH (21:51)
[2015-07-14] MEDS: CHLORHEXIDINE 0.12% (ORAL KIT) 15 ML CUP MT SCH (21:52)
[2015-07-15] VITALS (19 sets, daily range): BP systolic 104–169; BP diastolic 56–72; PULSE 68–97; RESP 19–47; TEMP 97.4–98.7; O2SAT 85–100
[2015-07-15] MEDS: CHLORHEXIDINE GLUCONATE 2 % 1 PACK (2 CLOTHS) TOP SCH ×2 (02:45→22:29)
[2015-07-15] MEDS: RESP: SODIUM CHLORIDE 3% 4 ML NEB NEB SCH ×4 (02:54→21:00)
[2015-07-15] MEDS: RESP: ALBUTEROL 2.5 MG/IPRATROPIUM 0.5 MG NEB (SCH) NEB ×4 (02:54→21:00)
--- NOTE | 2015-07-15 04:21 | RADRPT ---
EXAM DATE/TIME: 07/15/2015 02:30 [facility] COMPARISON: CHEST SINGLE AP, July 13, 2015, 4:38. INDICATIONS : Respiratory distress. MEDICAL HISTORY : Hypertension. Gastroesophageal reflux disease. Diabetes mellitus type II. SURGICAL HISTORY : None. ENCOUNTER: Subsequent ACUITY: 3 weeks PAIN SCORE: Non-responsive. LOCATION: Bilateral chest FINDINGS: Portable AP view of the chest demonstrates a normal-sized cardiac silhouette. Tracheostomy remains pr esent. Lungs are underinflated. Right chest tube is present. No pneumothorax is visualized. There is no effusion or airspace consolidation. CONCLUSION: Stable chest x-ray. Right chest tube is present and no pneumothorax is visualized. Erlin Barajas MD on July 15, 2015 at 4:18 Board Certified Radiologist. This report was verified electronically.
[2015-07-15 05:00] LABS: AUTOMATED NEUTROPHIL # 4.4 TH/MM3 (1.8-7.7); BASOPHIL % 0.5 % (0.0-2.0); EOSINOPHIL # 0.6 TH/MM3 (0-0.4); EOSINOPHIL % 8.2 % (0.0-4.0); HEMATOCRIT 33.1 % (39.0-51.0); HEMO FLAGS DIFF FINAL; LYMPH % 21.6 % (9.0-44.0); LYMPHOCYTE # 1.5 TH/MM3 (1.0-4.8); MEAN CELL VOLUME 92.2 FL (80.0-100.0); MEAN CORPUSCULAR HEMOGLOBIN 29.4 PG (27.0-34.0); MEAN CORPUSCULAR HGB CONC 31.9 % (32.0-36.0); MONO % 6.8 % (0.0-8.0); NEUT % 62.9 % (16.0-70.0); PLATELET COUNT 178 TH/MM3 (150-450); RED BLOOD COUNT 3.59 MIL/MM3 (4.50-5.90); RED CELL DISTRIBUTION WIDTH 13.6 % (11.6-17.2)
[2015-07-15 05:24] LABS: ALKALINE PHOSPHATASE 72 U/L (45-117); ALT (GPT) 11 U/L (12-78); ANION GAP 8 MEQ/L (5-15); AST (GOT) 15 U/L (15-37); BICARBONATE 36.4 MEQ/L (21.0-32.0); BLOOD UREA NITROGEN 21 MG/DL (7-18); CHLORIDE 102 MEQ/L (98-107); GLOMERULAR FILTRATION RATE 141 ML/MIN (>89); MAGNESIUM 2.2 MG/DL (1.5-2.5); POTASSIUM 3.9 MEQ/L (3.5-5.1); SODIUM (NA) 146 MEQ/L (136-145); TOTAL BILIRUBIN ADULT 0.3 MG/DL (0.2-1.0)
[2015-07-15] MEDS: clonazePAM 1 MG TAB PO SCH ×3 (06:35→23:03)
[2015-07-15] MEDS: CARBIDOPA/LEVODOPA 25 MG/100 MG TAB GT SCH ×3 (06:35→23:03)
[2015-07-15] MEDS: QUEtiapine FUMARATE 25 MG TAB G-TUBE SCH ×2 (08:27→20:52)
[2015-07-15] MEDS: GABAPENTIN 300 MG CAP G-TUBE SCH ×2 (08:27→20:52)
[2015-07-15] MEDS: CHLORHEXIDINE 0.12% (ORAL KIT) 15 ML CUP MT SCH ×2 (08:28→20:52)
[2015-07-15] MEDS: LANSOPRAZOLE SOLUTAB 30 MG TAB NG SCH (08:28)
[2015-07-15] MEDS: DOCUSATE SODIUM 100 MG/10 ML UDC PO SCH ×2 (08:28→20:52)
[2015-07-15] MEDS: MIDODRINE 5 MG TAB G-TUBE SCH ×2 (08:28→20:52)
[2015-07-15] MEDS: PARoxetine HCL 20 MG TAB G-TUBE SCH (08:28)
[2015-07-15] MEDS: LACTOBACILLUS ACIDOPHILUS TAB PO SCH ×3 (08:28→18:41)
[2015-07-15] MEDS: SENNOSIDES SYRUP 8.8 MG/5 ML CUP PO SCH (08:28)
[2015-07-15] MEDS: ARTIFICIAL TEARS OPTH SOLN 15 ML BTL EACH EYE SCH ×3 (08:29→18:41)
[2015-07-15] MEDS: SODIUM CHLORIDE 0.9% FLUSH 5 ML FLUSH IVF SCH ×2 (08:29→20:52)
--- NOTE | 2015-07-15 08:43 | HHI.CCPN ---
Subjective Remarks/Hospital Course 06/17: Pt is a 54 yr man with multiple medial problems including Parkinson's disease, advanced dementia, hyponatremia, anxiety, pneumonia, GERD, cognitive disorder, and multidrug resistant UTI- ESBL02/19/15 , who resides in a [place] [facility]. Pt by report was found by staff in [facility] [facility] to be less alert and having respiratory difficultly and fevers. Pt was brought to ED adn placed on ventilator. His workup was inclusive of labs, chest xray and ct head and abd/pelvis. WBC 16.4, +UTI, lactic acid 4, troponin ,0.02, BUN/ cre 18/ 0.76. CT head 06/18/15: diffuse atrophy unchanged. No acute intracranial findings ct abd/ pelvis with IV contrast: 06/18/15 Conclusion: 1. Chronic nonspecific urinary bladder wall thickening. Bladder collapsed with Putnam catheter in place. 2.Chronic bilateral mid to lower zone groundglass opacity. 3. Nonobstructing left renal calculus. 4. Distended rectum Pt admitted and fluid and abx ordered. 06/18: Drowsy, easily arousable. On mechanical ventilation via tracheostomy. Tachypneic. Resting tremor noted. 06/19: Drowsy, arousable. On mechanical ventilation via tracheostomy. 06/20: Drowsy, arousable. Remains on mechanical ventilation via tracheostomy. We'll repeat blood cultures, UA and urine cultures. Fluconazole IV added in view of yeast in urine. 07/06: Reconsulted as patient return to the ventilator on a right ventricular due to tachypnea. Low-grade temperatures. Tolerating tube feeding. Extremity encephalopathic demented patient with difficult neurological examination. 07/07: Status post chest tube placement by IR for right pneumothorax 07/06. Afebrile. Tolerating tube feeds. Positive BM. Currently tachypneic on the ventilator. Does not appear to be any acute distress. 07/08: Afebrile. Tolerating tube feeding. He is comfortable currently on CPAP trials 11/10. Positive BM. 07/09: Afebrile. Tolerating tube feeding. Appears comfortable on T bar. Positive BM. 07/10: Afebrile. Eyes are open. Remained on T piece overnight. Tolerating tube feeding. 07/11: MAXIMUM TEMPERATURE 100. Currently 98.6. Eyes are open. On ACV overnight secondary to "tachypnea and sweating". Switching back to PSV trials today. Goal is T piece during daytime, CPAP at night. 07/12: No acute events overnight. On PSV 20/06 -attempt TP up to 6 hours today. No pneumothorax on chest x-ray 07/13: Placed back on full ventilator support for tachypnea. Otherwise clinically unchanged. No fever today 07/14: Patient was on T piece yesterday evening, placed back on PSV overnight, patient mechanical ventilation this morning. Patient appears to be struggling with mechanical ventilation. Patient placed back on PSV with improvement Objective - Vital Signs Date Time Temp Pulse Resp B/P Pulse Ox O2 Delivery O2 Flow Rate FiO2 07/15/15 08:18 99 35 07/15/15 06:00 80 07/15/15 04:00 98.0 28 122/58 07/14/15 09:40 T-piece 6.00 I/O 07/14/15 07/14/15 07/15/15 08:00 16:00 00:00 Intake Total 494 ml 780 ml 437 ml Output Total 300 ml 1800 ml 750 ml Balance 194 ml -1020 ml -313 ml Result Diagram: 07/15/15 0328 07/15/15 0328 Other Results Microbiology Date/Time Procedure Status Source Growth 07/07/15 20:30 Urine Culture - Final Complete Urine Catheterized Urine NO GROWTH IN 48 HOURS. 07/07/15 15:50 Aerobic Blood Culture - Preliminary Resulted Blood Peripheral NO GROWTH IN 4 DAYS 07/07/15 15:50 Anaerobic Blood Culture - Final Resulted Blood Peripheral QNS - SEE AEROBE REPORT 07/07/15 14:50 Gram Stain - Final Complete Sputum Endotracheal 07/07/15 14:50 Sputum Culture - Final Complete Sputum Endotracheal LIGHT GROWTH NORMAL RESPIRATORY ANGY Imaging Last Impressions Chest X-Ray 07/11/15 0600 Signed Impressions: Service Date/Time: Saturday, July 11, 2015 04:08 - CONCLUSION: Small right pneumothorax noted. Jeramie Manjarrez MD Chest CT 07/11/15 0000 Signed Impressions: Service Date/Time: Saturday, July 11, 2015 09:49 - CONCLUSION: Scattered patchy densities significantly improved from previous study. Tiny anterior right basilar pneumothorax. Right-sided chest tube in good position. Néstor Matamoros MD Chest Tube Insertion 07/07/15 0000 Signed Impressions: Service Date/Time: Tuesday, July 07, 2015 17:14 - CONCLUSION: Uncomplicated right chest tube placement as above. Tai Talyor Jr., MD Head CT 06/18/151902 Signed Impressions: Service Date/Time: June 19:31 - CONCLUSION: Diffuse atrophy unchanged. No acute intracranial findings. Kush Briscoe MD Abdomen/Pelvis CT 06/18/151902 Signed Impressions: Service Date/Time: June 19:36 - CONCLUSION: 1. Chronic nonspecific urinary bladder wall thickening. Bladder collapsed with Putnam catheter in place. 2. Chronic bilateral mid to lower lung zone groundglass opacity. 3. Nonobstructing left renal calculus. 4. Distended rectum. Kush Briscoe MD Objective Remarks GENERAL: Well-developed, cachectic, he is awake, does not follow commands HEENT: Head is normocephalic without any lesions or masses noted. Facial features are symmetric. Eyes: Pupils equal round reactive to light. Conjunctivae were clear. Oropharyngeal: There is mucosal is dry without any mass or lesions NECK: Supple without any masses. Trachea midline no deviation. No JVD, tracheostomy noted CARDIAC: Regular rhythm, regular rate. S1/S2 are heard. No murmurs gallops or rubs. LUNGS: Clear to auscultation bilaterally. No wheeze, rhonchi or rales. Mild use of accessory muscles on expiration ABDOMEN: Soft, nontender. Nondistended. Bowel sounds heard in all 4 quadrants. No organomegaly or masses. Negative rebound, negative guarding. PEG tube noted , clean and dry EXTREMITIES: No edema, pulses are equal bilaterally. No cyanosis or clubbing NEUROLOGY: Patient with significant contractures of the right lower extremity, upper extremities. Muscle wasting bilateral upper and lower extremities Urinary Catheter: Yes Assessment to: Continue Putnam insert reason: Prolonged Immobilization Date of Insertion: June 24, 2015 Vascular Central Line Catheter: No A/P Assessment and Plan Neuro/Psych: Toxic metabolic Encephalopathy - acute on chronic Parkinson's disease Cognitive disorder/Underlying dementia? CT head 06/18/15: - diffuse atrophy unchanged. No acute intracranial findings Continue Sinemet 25/100 3 times a day via PEG, Seroquel 25 mg twice a day, olanzapine 5 mg a night, Klonopin 2 mg every 8 hours, Paxil 20 daily and Neurontin 300 mg twice a day Continue Roxanol 5 mg every 4 hours when necessary pain and fentanyl patch 50 g every 3 days on 07/07. Resp: Acute on chronic respiratory failure Chronic trach, acute on chronic resp failure, pneumonia Right pneumothorax status post pigtail catheter Continue PSV 15/5 35%; wean to TPs as tolerated. mechanical ventilation as needed, Duo nebs 4 times a day and when necessary albuterol written Pulmonology/Dr. Ag following Status post right pigtail chest tube by IR 07/06 -40 cm H2O. V. small intermittent leak. 20 cc yellowish output overnight. Follow chest x-ray revealed 8 mm right-sided pneumothorax. CT chest ordered 07/10 revealed a very tiny right apical pneumothorax. Chest x-ray 07/11, 07/12, 07/14 revealed no pneumothorax. Cardiac History of orthostasis History of CAD, HLP, Hypertension Continue Midodrine 5 mg twice a day Watch for hypotension troponin <0.02 GI: Malnutrition/protein calorie - moderate Status post PEG Hemorrhoids Gastroesophageal reflux disease - Tolerating Jevity 1.5 at 60 cc an hour - Currently Prevacid 30 mg per PEG tube daily for GERD - Current Colace/senna for bowel regimen. Positive bowel movements : - Strict intake output, monitor and replete electrolytes, follow BUN/creatinine - electrolyte replacement protocol ordered ID: Candiduria ESBL positive Klebsiella/Pseudomonas pneumonia MRSA colonization - multidrug resistant UTI- ESBL02/19/15 , MRSA + 03/20/15 - Heena glabrata in urine 03/19/15 - On tobramycin aerosols twice a day. Stop date 15 days - Recheck blood, sputum and urine cultures 07/06 all currently pending - 06/17 - blood cultures 2 - CONS/staph epi - 06/17 - sputum - ESBL positive Klebsiella/Pseudomonas - 06/17 - urine - C. glabrata/tropicalis - treated with Diflucan Endo: - If indicated sliding scale coverage Renal: Nonobstructing left renal calculus - Follow-up on BMP Heme Anemia - Follow-up on CBC MSK Bilateral lower extremity Contractures Stage II DU - Wound care evaluate and treat - Continue physical therapy DVT prof: scd and Lovenox ordered GI prof: Prevacid Disposition: Due to the patient's chronic medical conditioning's which seem to be worsening, more frequent hospitalizations, records do indicate that the patient has had previous palliative care consults. Patient would benefit from palliative care at this time. We'll consult them for helping with obtaining goals of care. Critical Care: The total care time was 40 minutes. Patient seen and examined independently. I agree with AVNI Lubin assessment and plan. Patient will be continued on TPs as tolerated German Medina Jul 15, 2015 08:43 Hilario Kern MD Jul 15, 2015 12:37
--- NOTE | 2015-07-15 14:50 | PD.CONS ---
Consult Service Palliative Care . Consult Requested By AVNI Lubin . Primary Care Physician Unknown . Reason for Consultation a. To assist with evaluation and management of symptoms including: dyspnea ; pain b. To assist medical decision maker(s) with: better understanding of current medical conditions; weighing benefits/burdens of medical treatment options; making medical treatment decisions. . HPI History of Present Illness This is the [facility]th [facility] care [facility] admission in the last 10 months for this unfortunate 54 y/o male longterm prison resident with advanced Parkinson's disease ; dementia; tracheostomy and PEG tube who was sent to the ED from his facility on 06/18/15 because of fevers, labored breathing, worsening mental status; and purulent looking sputum at the trach site. The patient has had multiple hospitalizations which included stays in the intensive care unit for various infections. He had a urinary tract infection with multidrug resistant ESBL on 02/19/15. He was last MRSA positive on . residential notes from the facility indicate that his current baseline is: * Bedbound status * Unable to communicate * NPO -- on tube feedings at 85 cc /hr * Dependent for all ADLs In the emergency Department, initial vital signs were as follows > temperature 100.9; pulse 98; respiratory rate 38; blood pressure 104/61; pulse oximetry 99% on room air via trach collar. Initial physical examination the emergency department revealed the following > patient was frail and chronically ill-appearing. Skin showed no obvious wounds. Head, eyes, ENT, neck, cardiovascular, respiratory, gastrointestinal exams were unremarkable. Neurologically, the patient was unable to answer questions or respond or follow commands. Initial diagnostic testing revealed the following: * CBC showed WBC 16.4; hemoglobin 11.3; platelet count 176 * Coagulation profile showed PT 11.4; INR 1.1; PTT 29.4 * Chemistry profile showed sodium 141; potassium 4.5; chloride 105; CO2 27.4; anion gap 9; BUN 21; creatinine 0.85; estimated GFR 95; glucose 116; calcium 9.6 * Liver function tests showed total bilirubin 0.6; AST 23; ALT 38; alkaline phosphatase 59; total protein 7.5; albumen 3.2 * Urinalysis was remarkable for large occult blood; large leukocyte esterase; few bacteria; few yeast with hyphae; few budding yeast. * Arterial blood gases on trach mask at 40% showed pH 7.53; PCO2 33; PaO2 108; bicarbonate 27; base excess 4.2 * Chest x-ray showed no acute cardiopulmonary disease * Head CT showed diffuse atrophy unchanged from prior exam. * CT of the abdomen and pelvis showed chronic nonspecific urinary bladder wall thickening; bladder collapsed with Valdez catheter in place; chronic bilateral mid to lower lung zone groundglass opacity; nonobstructing left renal calculus; distended rectum. * The emergency room doctor diagnosed severe sepsis. The patient was given 2 L of IV fluid and broad-spectrum antibiotic-coated verge in the emergency department. Cultures were obtained. Valdez catheter was changed. As the patient was markedly tachypneic with increased work of breathing and use of accessory muscles during his stay in the emergency department. He was placed on CPAP and subsequently intubated and placed on mechanical ventilation. Critical care was consulted and the patient was admitted to the intensive care unit. Further examination revealed a stage II 6 x 2 cm sacral wound. Urine culture on admission grew out Heena of 2 different species. Sputum culture grew out Klebsiella pneumonia ESBL positive as well as pseudomonas. Blood culture grew out coag-negative staph and staph epidermidis. Both infectious disease and pulmonology were consulted. The patient slowly improved, was extubated, and critical care signed off on . However, on 07/06 the patient had to be placed back on the ventilator. A right sided pneumothorax was noted and patient underwent chest tube placement by interventional radiology. Pneumothorax has appeared to resolve on most recent chest x-ray. Sputum, blood, and urine cultures from 07/07/15 are all negative. White blood count is currently down to 7. Hemoglobin is 10.6. Albumen is suboptimal at 3.0. Renal function is normal. He is currently off anti-biotics. Current pain regimen includes the following: * Fentanyl patch; 50 g per hour * Morphine sulfate 5 mg sublingually or via the tube every 4 hours when necessary (he has been using 1-2 doses of this per day) The patient was tolerating CPAP earlier today and has since been removed from the ventilator and is on a T-piece at 40% FI02. At time of my visit, eyes are open. He intermittently tracks. He cannot follow commands and makes no attempt to interact. . Function/Cognitive Trajectory Per the patient's brother (Salazar) and patient's close family friend (Bola) .... In Jan 2014, the patient was making his own health care decisions easily. In July 2014 he was living with his brother but it was very difficult. He used a walker to ambulate but would often refuse or forget to use it and he would fall. He could make it to the bathroom, but would need assistance there. He needed assistance with dressing and bathing as well. He could make his needs known, but he could not really converse. He declined rapidly after his hip fracture both physically and cognitively. . Review of Systems ROS Limitations: Clinical Condition (Unable to obtain from patient) Eyes: COMPLAINS OF: Vision loss Respiratory: COMPLAINS OF: Sputum production, Shortness of breath Gastrointestinal: COMPLAINS OF: Difficulty Swallowing (Patient unable to communicate. ROS taken as best as possible from medical record and residential notes. ) Musculoskeletal: COMPLAINS OF: Joint pain Neurologic: COMPLAINS OF: Tremor Psychiatric: COMPLAINS OF: Anxiety, Confusion, Depression Past Family Social History Coded Allergies: *MDRO Multi-Drug Resistant Organism (Verified Adverse Reaction, Unknown, ) ESBL E. coli (urine) - 02/19/2015; ESBL (sputum) - 06/18/15 MRSA PCR positive - 03/20/2015 Past Medical History Parkinson's disease Coronary artery disease Hyperlipidemia Hyponatremia Diabetes mellitus Peripheral neuropathy Anxiety Pneumonia GERD Hypertension Cognitive disorder Osteoarthritis Depression Anxiety Past Surgical History * Repair of left hip fracture November 2014 * Patient had unknown type of throat surgery * Back surgery * Tracheostomy * PEG tube placement Reported Medications Pre-hospital medications included the following: Fentanyl 25 Mcg/Hr patch (Fentanyl) 25 Mcg/Hr Dis 1 Patch T-DERMAL Q3D 10 Days Clonazepam 1 Mg Tab 1 Mg GT BID 10 Days Diflucan 100 mg (Fluconazole) 100 Mg Tab 100 Mg PO DAILY Amoxicillin 875 Mg Tab 875 Mg PO Q12HR 10 Days Heparin Sq 10,000 Units/Ml (Heparin Sodium (Porcine)) 10,000 Units/Ml Inj 5, 000 Units SQ Q8HR 30 Days Lactinex (Lactobacillus Acidophilus) 1 Tab Tab 1 Tab PO TID 10 Days Humalog Insulin Supplemental Scale (Insulin Human Lispro) 100 Units/Ml Inj 2- 12 Units SQ TIDACHS sliding scale Silvadene 400 Gm (Silver Sulfadiazine) 400 Applic/400 Gm Cr 1 Applic TOP DAILY APPLY TO RIGHT BUTTOCKS Lortab 5 mg/325 mg (Hydrocodone/Acetaminophen 5 mg/325 mg) 1 Tab 1 Tab G-TUBE Q6HR PRN Potassium Chloride CR 20 meq 20 Meq Tab 40 Meq G-TUBE DAILY Paroxetine Hcl 20 Mg Tab 20 Mg G-TUBE DAILY Gabapentin 300 Mg Cap 300 Mg G-TUBE BID Ranitidine 150 mg (Ranitidine HCl) 150 Mg Tab 150 Tab G-TUBE BID Diphenhydramine 25 mg (Diphenhydramine HCl) 25 Mg Tab 25 Mg G-TUBE Q6HR Quetiapine Fumarate 25 Mg Tab 12.5 Mg G-TUBE DAILY Proamatine 5 Mg Tab (Midodrine) 5 Mg Tab 2.5 Mg G-TUBE BID Famotidine 20 Mg Tab 20 Mg G-TUBE BID Sinemet 25/100 (Carbidopa/Levodopa) 25 Mg/100 Mg Tab 1 Tab GT Q8HR Acetylcysteine 20 % Helga 4 Ml INH BID Mapap (Acetaminophen) 325 Mg Tab 650 Mg G-TUBE Q4H PRN Olanzapine 2.5 Mg Tab 2.5 Mg GT HS Accuneb 1.25 mg/3 ml (Albuterol Sulfate) 1.25 Mg/3 Ml Neb 1.25 Mg NEB Q6HR NEB PRN . Current Medications Medications (Trade) Dose Ordered Sig/Jassi Route Start Time Stop Time Status Last Admin (NS Flush) 2 ml UNSCH PRN IVF 06/18/15 21:30 06/24/15 09:19 (NS Flush) 2 ml BID IVF 06/19/15 09:00 07/15/15 08:29 (Tylenol 650 Mg/ 20 ml Liq) 650 mg Q6H PRN TUBE 06/18/15 21:30 07/04/15 06:06 (Tears Naturale Opth Soln) 1 drop TID EACH EYE 06/19/15 09:00 07/15/15 08:29 (Zofran Inj) 4 mg Q6H PRN IV 06/18/15 21:30 (Lovenox Inj) 30 mg Q24H SQ 06/18/15 22:00 07/14/15 21:51 Miscellaneous Information 1 Q361D XX 06/18/15 21:30 06/18/15 21:30 (Chlorhexidine 2% Cloth) Taper DAILY@04 TOP 06/19/15 04:00 06/14/16 03:59 07/14/15 04:00 Chlorhexidine Gluconate 3 pack 3 pack UNSCH PRN TOP 06/18/15 21:30 Potassium Chloride 100 ml @ 50 mls/hr Q2H PRN IV 06/18/15 21:45 (KCl 20 Meq Premix Inj) 100 ml @ 50 mls/hr Q2H PRN IV 06/18/15 21:45 06/21/15 17:45 Potassium Chloride 40 meq 40 meq UNSCH PRN PO/TUBE 06/18/15 21:45 Potassium Chloride 100 ml @ 25 mls/hr UNSCH PRN IV 06/18/15 21:45 Potassium Chloride 100 ml @ 50 mls/hr Q2H PRN IV 06/18/15 21:45 06/20/15 12:47 (Magnesium Sulfate Inj/NS Inj) 100 ml @ 50 mls/hr UNSCH PRN IV 06/18/15 21:45 Magnesium Oxide 800 mg 800 mg UNSCH PRN PO 06/18/15 21:45 (Magnesium Sulfate Inj/NS Inj) 100 ml @ 50 mls/hr UNSCH PRN IV 06/18/15 21:45 Potassium Phosphate 2000 mg 2,000 mg Q4H PRN PO 06/18/15 21:45 (Sodium Phosphate Inj/NS 250 ml Inj) 250 ml @ 42 mls/hr UNSCH PRN IV 06/18/15 21:45 (KCl 40 Meq/30 ml Liq) 40 meq UNSCH PRN PO/TUBE 06/18/15 21:45 Potassium Phosphate 2000 mg 2,000 mg UNSCH PRN PO/TUBE 06/18/15 21:45 (Potassium Phosphate Inj/NS 250 ml Inj) 260 ml @ 42 mls/hr UNSCH PRN IV 06/18/15 21:45 (D50w (Vial) Inj) 25 ml UNSCH PRN IV PUSH 06/18/15 21:45 (Glucagon Inj) 1 mg UNSCH PRN OTHER 06/18/15 21:45 (Sinemet 25-100 Mg) 1 tab Q8HR GT 06/19/15 06:00 07/15/15 06:35 (Neurontin) 300 mg BID G-TUBE 06/19/15 09:00 07/15/15 08:27 (Lactinex) 1 tab TID PO 06/19/15 09:00 6/8/16 08:28 (Paxil) 20 mg DAILY G-TUBE 06/19/15 09:00 07/15/15 08:28 (Pill Splitter) 1 ea UNSCH PRN OTHER 06/19/15 03:30 06/28/15 09:35 (Peridex 0.12% Liq) 15 ml BID@08,20 MT 06/19/15 20:00 07/15/15 08:28 (Roxanol Liq) 5 mg Q4H PRN PO 06/20/15 20:45 07/14/15 02:54 (Colace Liq) 100 mg Q12HR PO 07/07/15 21:00 07/14/15 21:51 (Senna Liq) 8.8 mg DAILY PO 07/08/15 09:00 07/14/15 10:05 (Prevacid Odt) 30 mg DAILY NG 07/08/15 09:00 07/15/15 08:28 Miscellaneous Information 1 Q3D TD 07/11/15 08:00 07/14/15 08:00 (Duragesic 50 Mcg Patch.72 Hr) 1 patch Q3D TD 07/08/15 09:00 07/14/15 10:06 (KlonoPIN) 2 mg Q8HR PO 07/09/15 14:00 07/15/15 06:35 (Proamatine) 5 mg BID G-TUBE 07/12/15 09:00 07/15/15 08:28 (SEROquel) 25 mg BID G-TUBE 07/12/15 09:00 07/15/15 08:27 (ZyPREXA) 5 mg HS GT 07/12/15 21:00 07/14/15 21:51 Family History * Father is . He had severe coronary artery disease requiring multiple interventions * Mother is alive -- health unknown * A brother from complications of epilepsy * Another brother has psychosis . Substance Use Tobacco: Never smoked Alcohol: No known abuse Prescription med abuse: No known prescription drug abuse Illicits: No known use of illicits . Psychosocial History Mr. Foreman is originally from the [place] area. He moved permanently to [facility] around 2012. He may have finished high school. He did not attend college. 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 The patient is not . He has one adult childRadha Foreman ). The patient's mother lives in [place]. Father is . There is a brother who lives locally who suffers from a mental illness. Another brother in 1998 from complications of a seizure disorder. . . Spiritual/Cultural Factors Patient comes from the Hoahaoism tradition. He has been a member of [facility] and that yazdanism has helped provide community support. . Living Will: Never completed Health Care Surrogate: Copy in medical record Durable Power of Optician: Never completed Date completed: Patient visited Scott Mack, Optician in March and again in November 2014. The patient was encouraged to complete Advance directive documents but never did them. Dr. Pickard personally called Mr. Mack ([phone]) to check for advance directives. Health Care Surrogate(s): The patient completed a health care surrogate document dated 09/02/14 desigating his friend Bola Nolasco as surrogate. Mr. Nolasco was not aware of this and has declined serving in that capacity. The patient has an adult daughter -- Radha Foreman who is willing to serve as health care proxy decision maker. Patient's motherTeresa is aware. Physical Exam Vital Signs Date Time Temp Pulse Resp B/P Pulse Ox O2 Delivery O2 Flow Rate FiO2 07/15/15 12:00 78 07/15/15 12:00 97.7 78 24 110/57 100 07/15/15 11:20 99 T-piece 40 07/15/15 10:00 93 07/15/15 08:18 99 35 07/15/15 08:10 100 35 07/15/15 08:00 35 07/15/15 08:00 93 07/15/15 08:00 98.7 68 19 169/72 100 07/15/15 06:00 80 07/15/15 04:00 98.0 78 28 122/58 99 07/15/15 04:00 78 07/15/15 03:50 100 35 07/15/15 02:00 71 07/15/15 00:48 100 35 07/15/15 00:00 81 07/15/15 00:00 97.4 82 23 106/56 97 07/14/15 22:00 72 07/14/15 21:46 98 35 07/14/15 20:00 99 35 07/14/15 20:00 98.4 80 37 115/59 99 07/14/15 20:00 80 07/14/15 18:00 79 07/14/15 16:50 99 35 07/14/15 16:00 98.8 81 18 129/68 98 07/14/15 16:00 79 07/14/15 16:00 35 . 07/14/15 07/15/15 19:00 07:00 Intake Total 780 ml 980 ml Output Total 1800 ml 1300 ml Balance -1020 ml -320 ml Tube Feeding 580 ml 980 ml Other 200 ml Output Urine Total 1800 ml 1300 ml Chest Tube Drainage Total 0 ml # Bowel Movements 1 1 . Exam CONSTITUTIONAL/GENERAL: This is a thin, pale, contracted, chronically ill appearing male on a trach to T-tube in the MICU. No apparent distress. TUBES/LINES/DRAINS: Trach; valdez; SCDs; right chest tube; soft wrist restraints ; peripheral iv left forearm; SKIN: No jaundice, rashes, or lesions. No wounds seen anteriorly -- did not examine sacral area. Skin temperature appropriate. Not diaphoretic. HEAD: Atraumatic. Normocephalic. EYES: Pupils equal and round and reactive. Extraocular motions intact. No scleral icterus. No injection or drainage. Fundi not examined. ENT: Appears to hear loud noises; Nose without bleeding or purulent drainage. Throat without visible erythema, exudates, masses, or lesions. NECK: Trachea midline. Supple, nontender. No palpable thyroid enlargement or nodularity. CARDIOVASCULAR: Regular rate and rhythm without murmurs, gallops, or rubs. No JVD. Peripheral pulses symmetric. RESPIRATORY/CHEST: Symmetric, unlabored respirations. Clear to auscultation. Breath sounds equal bilaterally. No wheezes, rales, or rhonchi. GASTROINTESTINAL: Abdomen soft, non-tender, nondistended. No hepato-splenomegaly , or palpable masses. No guarding. Bowel sounds present. GENITOURINARY: Without palpable bladder distension. Valdez catheter in place. MUSCULOSKELETAL: Extremities without clubbing, cyanosis, or edema. Contractures. No joint tenderness or effusion noted. No calf tenderness. No mottling or clubbing. LYMPHATICS: No palpable cervical or supraclavicular adenopathy. NEUROLOGICAL: Awake. Tracks me only intermittently. Small movements of all extremities. Tremor in feet. Unable to follow commands. PSYCHIATRIC: Unable to assess due to level of responsiveness. . Diagnostic Tests Laboratory Laboratory Tests Test 07/13/15 07/13/15 07/15/15 05:40 05:48 03:28 White Blood Count 8.5 TH/MM3 7.0 TH/MM3 (4.0-11.0) (4.0-11.0) Red Blood Count 3.67 MIL/MM3 3.59 MIL/MM3 (4.50-5.90) (4.50-5.90) Hemoglobin 10.9 GM/DL 10.6 GM/DL (13.0-17.0) (13.0-17.0) Hematocrit 34.0 % 33.1 % (39.0-51.0) (39.0-51.0) Mean Corpuscular Volume 92.6 FL 92.2 FL (80.0-100.0) (80.0-100.0) Mean Corpuscular Hemoglobin 29.6 PG 29.4 PG (27.0-34.0) (27.0-34.0) Mean Corpuscular Hemoglobin 32.0 % 31.9 % Concent (32.0-36.0) (32.0-36.0) Red Cell Distribution Width 13.3 % 13.6 % (11.6-17.2) (11.6-17.2) Platelet Count 169 TH/MM3 178 TH/MM3 (150-450) (150-450) Mean Platelet Volume 11.3 FL 10.7 FL (7.0-11.0) (7.0-11.0) Neutrophils (%) (Auto) 64.8 % 62.9 % (16.0-70.0) (16.0-70.0) Lymphocytes (%) (Auto) 16.7 % 21.6 % (9.0-44.0) (9.0-44.0) Monocytes (%) (Auto) 7.8 % (0.0-8.0) 6.8 % (0.0-8.0) Eosinophils (%) (Auto) 10.0 % 8.2 % (0.0-4.0) (0.0-4.0) Basophils (%) (Auto) 0.7 % (0.0-2.0) 0.5 % (0.0-2.0) Neutrophils # (Auto) 5.5 TH/MM3 4.4 TH/MM3 (1.8-7.7) (1.8-7.7) Lymphocytes # (Auto) 1.4 TH/MM3 1.5 TH/MM3 (1.0-4.8) (1.0-4.8) Monocytes # (Auto) 0.7 TH/MM3 0.5 TH/MM3 (0-0.9) (0-0.9) Eosinophils # (Auto) 0.8 TH/MM3 0.6 TH/MM3 (0-0.4) (0-0.4) Basophils # (Auto) 0.1 TH/MM3 0.0 TH/MM3 (0-0.2) (0-0.2) CBC Comment DIFF FINAL DIFF FINAL Differential Comment Sodium Level 144 MEQ/L 146 MEQ/L (136-145) (136-145) Potassium Level 4.0 MEQ/L 3.9 MEQ/L (3.5-5.1) (3.5-5.1) Chloride Level 99 MEQ/L 102 MEQ/L (98-107) (98-107) Carbon Dioxide Level 35.3 MEQ/L 36.4 MEQ/L (21.0-32.0) (21.0-32.0) Anion Gap 10 MEQ/L (5-15) 8 MEQ/L (5-15) Blood Urea Nitrogen 27 MG/DL (7-18) 21 MG/DL (7-18) Creatinine 0.65 MG/DL 0.60 MG/DL (0.60-1.30) (0.60-1.30) Estimat Glomerular Filtration 129 ML/MIN 141 ML/MIN Rate (>89) (>89) Random Glucose 99 MG/DL 117 MG/DL (74-106) (74-106) Calcium Level 10.1 MG/DL 10.0 MG/DL (8.5-10.1) (8.5-10.1) Phosphorus Level 4.5 MG/DL (2.5-4.9) Magnesium Level 2.0 MG/DL 2.2 MG/DL (1.5-2.5) (1.5-2.5) Total Bilirubin 0.4 MG/DL 0.3 MG/DL (0.2-1.0) (0.2-1.0) Aspartate Amino Transf 14 U/L (15-37) 15 U/L (15-37) (AST/SGOT) Alanine Aminotransferase 10 U/L (12-78) 11 U/L (12-78) (ALT/SGPT) Alkaline Phosphatase 70 U/L (45-117) 72 U/L (45-117) Total Protein 7.4 GM/DL 7.6 GM/DL (6.4-8.2) (6.4-8.2) Albumin 2.9 GM/DL 3.0 GM/DL (3.4-5.0) (3.4-5.0) . Result Diagram: 07/15/15 0328 07/15/15 0328 Imaging Last Impressions Chest X-Ray 07/15/15 0600 Signed Impressions: Service Date/Time: Wednesday, July 15, 2015 02:30 - CONCLUSION: Stable chest x-ray. Right chest tube is present and no pneumothorax is visualized. Erlin Barajas MD Chest CT 07/11/15 0000 Signed Impressions: Service Date/Time: Saturday, July 11, 2015 09:49 - CONCLUSION: Scattered patchy densities significantly improved from previous study. Tiny anterior right basilar pneumothorax. Right-sided chest tube in good position. Néstor Matamoros MD Chest Tube Insertion 07/07/15 0000 Signed Impressions: Service Date/Time: Tuesday, July 07, 2015 17:14 - CONCLUSION: Uncomplicated right chest tube placement as above. Tai Taylor Jr., MD Head CT 06/18/151902 Signed Impressions: Service Date/Time: June 19:31 - CONCLUSION: Diffuse atrophy unchanged. No acute intracranial findings. Kush Briscoe MD Abdomen/Pelvis CT 06/18/151902 Signed Impressions: Service Date/Time: June 19:36 - CONCLUSION: 1. Chronic nonspecific urinary bladder wall thickening. Bladder collapsed with Valdez catheter in place. 2. Chronic bilateral mid to lower lung zone groundglass opacity. 3. Nonobstructing left renal calculus. 4. Distended rectum. Kush Briscoe MD . Procedures * Mechanical ventilation * Chest tube placement on right 07/07/15 . Patient/Family Conference Present at Family Conference: Attempted to call patient's legal proxy, his daughter -- Radha Gomes. Got outgoing message with her name, but system would not accept message. . . Issues Discussed: * Palliative care role, purpose, approach * Additional medical, psychosocial, and spiritual history * Patients general health, functional status, and cognitive changes in the months leading up to the current hospitalization * Patient/family understanding of the current medical problems * Patient/family understanding of prognosis * Patients goals of care as best understood from advance directives and/or conversations and/or values * Current medical treatment options and benefits/burdens of those options * Likely scenarios comparing ongoing aggressive care with a transition to comfort measures only * Questions answered to the best of my ability * Palliative care contact information provided Assessment and Plan Disease Oriented Problem List: (1) Acute respiratory failure Comment: Secondary to pneumonia (2) Pneumonia Comment: Cultures have been positive for Pseudomonas AND Klebsiella ESBL (3) Pneumothorax on right (4) Septic shock Comment: Blood cx have been postiive for Staph coag neg and Staph epidermidis . (5) Parkinson disease (6) Moderate malnutrition (7) UTI (urinary tract infection) Comment: Cultures have been positive for Heena (tropicalis and glabrata) (8) Chronic respiratory failure Symptom Scale: (1) Pain (2) Dyspnea Pertinent Non-Medical Issues Psychosocial: [facility] prison resident. 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 Severe dementia. Daughter, mother, and brother are involved. Spiritual: Hoahaoism. [facility] been a member for [facility] and members have provided both community support and spiritual support in the past. Legal: No advance directives. Daughter (Radha Foreman) is legal proxy. Ethical issues impacting care: None. . Important Contacts * Radha Foreman (daughter and proxy) [phone] * Teresa Perea (mother) [phone] . Prognosis Patient has end stage Parkinson's with end stage dementia. 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 He is a chronic trach/PEG tube patient with contractures and skin breakdown. Should family continue to want aggressive care, he will continue to go back and forth from facility to hospital until such time that we are no longer able to overcome the sepsis. Patient is hospice eligible whenever family is ready to transition to "comfort measures only." . Code Status: Full Code Plan * Code status: FULL CODE * Decision making: Patient is incapacitated and will not regain capacity. There is no designated health care surrogate. Daughter, Radha Foreman, is legal proxy under [place] statutes but can be hard to contact at times. * Goals: Until we hear otherwise from legal proxy, goals remain aggressive with full code status. * Pain: Sources of pain are unclear as patient in non communicative, but would include prolonged bedbound status; tubes and lines; contractures; etc. Current regimen appears to adequate while allowing for wean off vent. No further recommendations at this time. * Dyspnea: Dyspnea was due to pneumonia and pneumothorax. Now improving. No further recommendations at this time. * Malnutrition: Anticipate improvement as infection clears and patient is tolerating tube feeds. * Agitation/Behavioral issues: Adequately controlled with current neuroleptic and benzo regimen. No further recommendations at this time. * I was unable to leave a voice message on proxy's voicemail. Will continue to try. I want to make sure she understands her father's condition and prognosis and understands options including hospice care. . Thank you for the opportunity to participate in the care of Mr. Foreman. . Attestation To help prompt me to consider important information that might be impacting today's encounter and assessment, information from prior notes written by myself or my colleagues may have been "brought forward" into today's note. My signature on this note, however, is an attestation that I personally performed the exam, history, and/or decision-making noted today, and, unless otherwise indicated, the interactions with patient, family, and staff as well as the review of records all occurred today. I also attest that the listed assessment and stated plan reflect my best clinical judgment today based on the combination of historical information, prior notes, and today's exam/ interactions. When time spent is documented, it refers only to time spent today by the signer, or if indicated, combined time spent today by collaborating physician/nurse practitioner. . Pascual Pickard MD Jul 15, 2015 14:50
--- NOTE | 2015-07-15 17:56 | HHI.PR ---
Subjective Remarks 54 YOWM with ChRF,Trach, multiple uti No fever Gets anxious On Fentanyl patch Has right chest tube tolerates T-Tube CXR no PTX Objective Vital Signs Vital Signs Date Time Temp Pulse Resp B/P Pulse Ox O2 Delivery O2 Flow Rate FiO2 07/15/15 16:00 84 07/15/15 16:00 98.0 84 28 123/70 97 07/15/15 14:00 75 07/15/15 12:00 78 07/15/15 12:00 97.7 78 24 110/57 100 07/15/15 11:20 99 T-piece 40 07/15/15 10:00 93 07/15/15 08:18 99 35 07/15/15 08:10 100 35 07/15/15 08:00 35 07/15/15 08:00 93 07/15/15 08:00 98.7 68 19 169/72 100 07/15/15 06:00 80 07/15/15 04:00 98.0 78 28 122/58 99 07/15/15 04:00 78 07/15/15 03:50 100 35 07/15/15 02:00 71 07/15/15 00:48 100 35 07/15/15 00:00 81 07/15/15 00:00 97.4 82 23 106/56 97 07/14/15 22:00 72 07/14/15 21:46 98 35 07/14/15 20:00 99 35 07/14/15 20:00 98.4 80 37 115/59 99 07/14/15 20:00 80 07/14/15 18:00 79 I/O 07/14/15 07/14/15 07/14/15 07/15/15 07/15/15 07/15/15 07:00 15:00 23:00 07:00 15:00 23:00 Intake Total 494 ml 780 ml 437 ml 543 ml 664 ml Output Total 300 ml 1800 ml 750 ml 550 ml 480 ml Balance 194 ml -1020 ml -313 ml -7 ml 184 ml Tube Feeding 394 ml 580 ml 437 ml 543 ml 564 ml Other 100 ml 200 ml 100 ml Output Urine Total 300 ml 1800 ml 750 ml 550 ml 450 ml Chest Tube Drainage Total 0 ml 30 ml # Bowel Movements 1 1 1 0 Result Diagram: 07/15/1532707/15/15327 Objective Remarks GENERAL: MBMN male on Vent. SKIN: Warm and dry. HEAD: Normocephalic. EYES: No scleral icterus. No injection or drainage. NECK: Supple, trachea midline. No JVD or lymphadenopathy. has trach CARDIOVASCULAR: Regular rate and rhythm without murmurs, gallops, or rubs. RESPIRATORY: Breath sounds equal bilaterally. No accessory muscle use. Right chest tube to suction GASTROINTESTINAL: Abdomen soft, non-tender, nondistended. PEG tube in place MUSCULOSKELETAL: No cyanosis, or edema. BACK: Nontender without obvious deformity. No CVA tenderness. A/P Assessment and Plan VDRF S/P Trach Parkinson's diasease Dementia UTI Small PTX--resolved PLAN: ABX Meropenm, Diflucan and Tobra nebs TF Add Ativan 0.[address] to suction T-Tube Clamp Chest tube, remove chest tube in Am Severiano Ag MD Jul 15, 2015 17:56
[2015-07-15] MEDS: OLANZapine 2.5 MG TAB GT SCH (20:52)
[2015-07-15] MEDS: MORPHINE SULFATE ORAL SOLN 10 MG/0.5 ML SYRINGE PO PRN (20:52)
[2015-07-15] MEDS: ENOXAPARIN SODIUM 30 MG/0.3 ML SYRINGE SQ SCH (23:03)
[2015-07-16] VITALS (19 sets, daily range): BP systolic 104–153; BP diastolic 57–89; PULSE 84–95; RESP 24–44; TEMP 98–98.8; O2SAT 93–100
[2015-07-16] MEDS: RESP: ALBUTEROL 2.5 MG/IPRATROPIUM 0.5 MG NEB (SCH) NEB ×3 (05:00→16:00)
[2015-07-16] MEDS: RESP: SODIUM CHLORIDE 3% 4 ML NEB NEB SCH ×4 (05:00→20:09)
--- NOTE | 2015-07-16 05:23 | RADRPT ---
EXAM DATE/TIME: 07/16/2015 03:35 [facility] COMPARISON: CHEST SINGLE AP, July 15, 2015, 2:30. INDICATIONS : Shortness of breath, possible pulmonary disease. MEDICAL HISTORY : Hypertension. Gastroesophageal reflux disease. Diabetes mellitus type II. SURGICAL HISTORY : None. ENCOUNTER: Subsequent ACUITY: 3 weeks PAIN SCORE: Non-responsive. LOCATION: Bilateral chest FINDINGS: Portable AP view of the chest demonstrates a normal-sized cardiac silhouette. Tracheostomy remains pr esent. There is a right chest tube in place and no pneumothorax is visualized. Lungs are underinflate d. CONCLUSION: Underinflated examination. Right chest tube is present and no pneumothorax is visualized. Erlin Barajas MD on July 16, 2015 at 5:19 Board Certified Radiologist. This report was verified electronically.
[2015-07-16 05:28] LABS: AUTOMATED NEUTROPHIL # 5.5 TH/MM3 (1.8-7.7); BASOPHIL % 0.4 % (0.0-2.0); EOSINOPHIL # 0.7 TH/MM3 (0-0.4); EOSINOPHIL % 8.1 % (0.0-4.0); HEMATOCRIT 34.7 % (39.0-51.0); HEMO FLAGS DIFF FINAL; LYMPH % 17.7 % (9.0-44.0); LYMPHOCYTE # 1.5 TH/MM3 (1.0-4.8); MEAN CELL VOLUME 92.1 FL (80.0-100.0); MEAN CORPUSCULAR HEMOGLOBIN 29.6 PG (27.0-34.0); MEAN CORPUSCULAR HGB CONC 32.2 % (32.0-36.0); MONO % 6.7 % (0.0-8.0); NEUT % 67.1 % (16.0-70.0); PLATELET COUNT 199 TH/MM3 (150-450); RED BLOOD COUNT 3.77 MIL/MM3 (4.50-5.90); RED CELL DISTRIBUTION WIDTH 13.5 % (11.6-17.2); WHITE BLOOD COUNT 8.3 TH/MM3 (4.0-11.0)
[2015-07-16 05:47] LABS: BICARBONATE 35.6 MEQ/L (21.0-32.0); MAGNESIUM 2.2 MG/DL (1.5-2.5)
[2015-07-16] MEDS: CARBIDOPA/LEVODOPA 25 MG/100 MG TAB GT SCH ×3 (06:10→21:43)
[2015-07-16] MEDS: clonazePAM 1 MG TAB PO SCH ×3 (06:10→21:43)
[2015-07-16 06:25] LABS: POTASSIUM 4.4 MEQ/L (3.5-5.1)
--- NOTE | 2015-07-16 07:39 | HHI.CCPN ---
Subjective Remarks/Hospital Course 06/17: Pt is a 54 yr man with multiple medial problems including Parkinson's disease, advanced dementia, hyponatremia, anxiety, pneumonia, GERD, cognitive disorder, and multidrug resistant UTI- ESBL02/19/15 , who resides in a senior care. Pt by report was found by staff in senior care to be less alert and having respiratory difficultly and fevers. Pt was brought to ED adn placed on ventilator. His workup was inclusive of labs, chest xray and ct head and abd/pelvis. WBC 16.4, +UTI, lactic acid 4, troponin ,0.02, BUN/ cre 18/ 0.76. CT head 06/18/15: diffuse atrophy unchanged. No acute intracranial findings ct abd/ pelvis with IV contrast: 06/18/15 Conclusion: 1. Chronic nonspecific urinary bladder wall thickening. Bladder collapsed with Putnam catheter in place. 2.Chronic bilateral mid to lower zone groundglass opacity. 3. Nonobstructing left renal calculus. 4. Distended rectum Pt admitted and fluid and abx ordered. 06/18: Drowsy, easily arousable. On mechanical ventilation via tracheostomy. Tachypneic. Resting tremor noted. 06/19: Drowsy, arousable. On mechanical ventilation via tracheostomy. 06/20: Drowsy, arousable. Remains on mechanical ventilation via tracheostomy. We'll repeat blood cultures, UA and urine cultures. Fluconazole IV added in view of yeast in urine. 07/06: Reconsulted as patient return to the ventilator on a right ventricular due to tachypnea. Low-grade temperatures. Tolerating tube feeding. Extremity encephalopathic demented patient with difficult neurological examination. 07/07: Status post chest tube placement by IR for right pneumothorax 07/06. Afebrile. Tolerating tube feeds. Positive BM. Currently tachypneic on the ventilator. Does not appear to be any acute distress. 07/08: Afebrile. Tolerating tube feeding. He is comfortable currently on CPAP trials 11/10. Positive BM. 07/09: Afebrile. Tolerating tube feeding. Appears comfortable on T bar. Positive BM. 07/10: Afebrile. Eyes are open. Remained on T piece overnight. Tolerating tube feeding. 07/11: MAXIMUM TEMPERATURE 100. Currently 98.6. Eyes are open. On ACV overnight secondary to "tachypnea and sweating". Switching back to PSV trials today. Goal is T piece during daytime, CPAP at night. 07/12: No acute events overnight. On PSV / -attempt TP up to 6 hours today. No pneumothorax on chest x-ray 07/13: Placed back on full ventilator support for tachypnea. Otherwise clinically unchanged. No fever today 07/14: Patient was on T piece yesterday evening, placed back on PSV overnight, patient mechanical ventilation this morning. Patient appears to be struggling with mechanical ventilation. Patient placed back on PSV with improvement 07/15: Patient placed back on mechanical ventilation last evening due to respiratory rate. It was indicated patient was tachypnea can the 40s. Patient on mechanical ventilation this time with respiration rate mid 20s. Chest tube still in place without any output, chest x-ray still indicating resolution of pneumothorax. Objective - Vital Signs Date Time Temp Pulse Resp B/P Pulse Ox O2 Delivery O2 Flow Rate FiO2 07/16/15 06:00 95 07/16/15 05:00 100 35 07/16/15 04:00 98.4 24 104/57 07/15/15 21:01 T-piece 6.00 I/O 07/15/15 07/15/15 07/16/15 08:00 16:00 00:00 Intake Total 543 ml 664 ml 452 ml Output Total 550 ml 480 ml 400 ml Balance -7 ml 184 ml 52 ml Result Diagram: 07/16/15 0457 07/16/15 0459 Other Results Microbiology Date/Time Procedure Status Source Growth 07/07/15 20:30 Urine Culture - Final Complete Urine Catheterized Urine NO GROWTH IN 48 HOURS. 07/07/15 15:50 Aerobic Blood Culture - Preliminary Resulted Blood Peripheral NO GROWTH IN 4 DAYS 07/07/15 15:50 Anaerobic Blood Culture - Final Resulted Blood Peripheral QNS - SEE AEROBE REPORT 07/07/15 14:50 Gram Stain - Final Complete Sputum Endotracheal 07/07/15 14:50 Sputum Culture - Final Complete Sputum Endotracheal LIGHT GROWTH NORMAL RESPIRATORY ANGY Imaging Last Impressions Chest X-Ray 07/11/15 0600 Signed Impressions: Service Date/Time: Saturday, July 11, 2015 04:08 - CONCLUSION: Small right pneumothorax noted. Jeramie Manjarrez MD Chest CT 07/11/15 0000 Signed Impressions: Service Date/Time: Saturday, July 11, 2015 09:49 - CONCLUSION: Scattered patchy densities significantly improved from previous study. Tiny anterior right basilar pneumothorax. Right-sided chest tube in good position. Néstor Matamoros MD Chest Tube Insertion 07/07/15 0000 Signed Impressions: Service Date/Time: Tuesday, July 07, 2015 17:14 - CONCLUSION: Uncomplicated right chest tube placement as above. Tai Taylor Jr., MD Head CT 06/18/151902 Signed Impressions: Service Date/Time: June 19:31 - CONCLUSION: Diffuse atrophy unchanged. No acute intracranial findings. Kush Briscoe MD Abdomen/Pelvis CT 06/18/151902 Signed Impressions: Service Date/Time: June 19:36 - CONCLUSION: 1. Chronic nonspecific urinary bladder wall thickening. Bladder collapsed with Putnam catheter in place. 2. Chronic bilateral mid to lower lung zone groundglass opacity. 3. Nonobstructing left renal calculus. 4. Distended rectum. Kush Briscoe MD Objective Remarks GENERAL: Well-developed, cachectic, he is awake, does not follow commands HEENT: Head is normocephalic without any lesions or masses noted. Facial features are symmetric. Eyes: Pupils equal round reactive to light. Conjunctivae were clear. Oropharyngeal: There is mucosal is dry without any mass or lesions NECK: Supple without any masses. Trachea midline no deviation. No JVD, tracheostomy noted CARDIAC: Regular rhythm, regular rate. S1/S2 are heard. No murmurs gallops or rubs. LUNGS: Clear to auscultation bilaterally. No wheeze, rhonchi or rales. No use of accessory muscles. Chest tube at 40mm, no airleak, no output overnight ABDOMEN: Soft, nontender. Nondistended. Bowel sounds heard in all 4 quadrants. No organomegaly or masses. Negative rebound, negative guarding. PEG tube noted , clean and dry EXTREMITIES: No edema, pulses are equal bilaterally. No cyanosis or clubbing NEUROLOGY: Patient with significant contractures of the right lower extremity, upper extremities. Muscle wasting bilateral upper and lower extremities Urinary Catheter: Yes Assessment to: Continue Putnam insert reason: Prolonged Immobilization Date of Insertion: June 24, 2015 Vascular Central Line Catheter: No A/P Assessment and Plan Neuro/Psych: Toxic metabolic Encephalopathy - acute on chronic Parkinson's disease Cognitive disorder/Underlying dementia? CT head 06/18/15: - diffuse atrophy unchanged. No acute intracranial findings Continue Sinemet 25/100 3 times a day via PEG, Seroquel 25 mg twice a day, olanzapine 5 mg a night, Klonopin 2 mg every 8 hours, Paxil 20 daily and Neurontin 300 mg twice a day Continue Roxanol 5 mg every 4 hours when necessary pain and fentanyl patch 50 g every 3 days on 07/07. Resp: Acute on chronic respiratory failure Chronic trach, acute on chronic resp failure, pneumonia Right pneumothorax status post pigtail catheter Patient placed back on mechanical ventilation, AC 16/500/5+/35%. Continue wean to TPs as tolerated. mechanical ventilation as needed, Duo nebs 4 times a day and when necessary albuterol written Pulmonology/Dr. Ag following Status post right pigtail chest tube by IR 07/06 -40 cm H2O. no airleak, no output overnight Follow chest x-ray revealed 8 mm right-sided pneumothorax. CT chest ordered 07/10 revealed a very tiny right apical pneumothorax. Chest x-ray 07/11, 07/12, 07/14, 07/15 revealed no pneumothorax. Cardiac History of orthostasis History of CAD, HLP, Hypertension Continue Midodrine 5 mg twice a day Watch for hypotension troponin <0.02 GI: Malnutrition/protein calorie - moderate Status post PEG Hemorrhoids Gastroesophageal reflux disease - Tolerating Jevity 1.5 at 60 cc an hour - Currently Prevacid 30 mg per PEG tube daily for GERD - Current Colace/senna for bowel regimen. Positive bowel movements : - Strict intake output, monitor and replete electrolytes, follow BUN/creatinine - electrolyte replacement protocol ordered ID: Candiduria ESBL positive Klebsiella/Pseudomonas pneumonia MRSA colonization - multidrug resistant UTI- ESBL1 , MRSA + 03/20/15 - Heena glabrata in urine 03/19/15 - On tobramycin aerosols twice a day. Stop date 15 days - Recheck blood, sputum and urine cultures 07/06 all currently pending - 06/17 - blood cultures 2 - CONS/staph epi - 06/17 - sputum - ESBL positive Klebsiella/Pseudomonas - 06/17 - urine - C. glabrata/tropicalis - treated with Diflucan Endo: - If indicated sliding scale coverage Renal: Nonobstructing left renal calculus - Follow-up on BMP, stable Heme Anemia - Follow-up on CBC, stable MSK Bilateral lower extremity Contractures Stage II DU - Wound care evaluate and treat - Continue physical therapy DVT prof: scd and Lovenox ordered GI prof: Prevacid Disposition: Due to the patient's chronic medical conditioning's which seem to be worsening, more frequent hospitalizations, records do indicate that the patient has had previous palliative care consults. Palliative care was consulted and following the patient, trying to contact patient's healthcare proxy Critical Care: The total care time was 35 minutes. Addendum: Patient was seen and examined independently. Now on T piece. Chest tubes with no airleak no pneumothorax on chest x-ray. Will put to waterseal repeat chest x-ray in am possible removal of chest tube German Medina Jul 16, 2015 07:39 Hilario Kern MD Jul 16, 2015 12:38
[2015-07-16] MEDS: ARTIFICIAL TEARS OPTH SOLN 15 ML BTL EACH EYE SCH ×3 (08:39→17:19)
[2015-07-16] MEDS: QUEtiapine FUMARATE 25 MG TAB G-TUBE SCH ×2 (08:39→20:53)
[2015-07-16] MEDS: LACTOBACILLUS ACIDOPHILUS TAB PO SCH ×3 (08:39→17:18)
[2015-07-16] MEDS: PARoxetine HCL 20 MG TAB G-TUBE SCH (08:39)
[2015-07-16] MEDS: DOCUSATE SODIUM 100 MG/10 ML UDC PO SCH ×2 (08:39→20:53)
[2015-07-16] MEDS: SENNOSIDES SYRUP 8.8 MG/5 ML CUP PO SCH (08:39)
[2015-07-16] MEDS: CHLORHEXIDINE 0.12% (ORAL KIT) 15 ML CUP MT SCH ×2 (08:39→20:52)
[2015-07-16] MEDS: LANSOPRAZOLE SOLUTAB 30 MG TAB NG SCH (08:39)
[2015-07-16] MEDS: MIDODRINE 5 MG TAB G-TUBE SCH ×2 (08:39→20:52)
[2015-07-16] MEDS: GABAPENTIN 300 MG CAP G-TUBE SCH ×2 (08:39→20:52)
[2015-07-16] MEDS: SODIUM CHLORIDE 0.9% FLUSH 5 ML FLUSH IVF SCH ×2 (08:40→20:53)
--- NOTE | 2015-07-16 10:33 | HHI.HCPN ---
Family Contact Attempted to contact daughter, Radha, to coordinate meeting, possible phone conference, with her and palliative care. Unable to reach but was able to leave a message. Left palliative care SW contact information requesting call back. Radha- [phone] Sulma Taylor Jul 16, 2015 10:33
[2015-07-16] MEDS: MORPHINE SULFATE ORAL SOLN 10 MG/0.5 ML SYRINGE PO PRN ×2 (10:48→16:36)
--- NOTE | 2015-07-16 16:35 | HHI.PR ---
Subjective Remarks 54 YOWM with ChRF,Trach, multiple uti No fever Gets anxious On Fentanyl patch Has right chest tube tolerates T-Tube CXR no PTX, chest tube on Water seal. Objective Vital Signs Vital Signs Date Time Temp Pulse Resp B/P Pulse Ox O2 Delivery O2 Flow Rate FiO2 07/16/15 14:00 91 07/16/15 12:21 27 07/16/15 12:00 98.8 91 30 111/59 93 07/16/15 12:00 91 07/16/15 10:38 100 T-piece 7.00 35 07/16/15 10:25 99 35 07/16/15 10:00 95 07/16/15 08:00 35 07/16/15 08:00 98.0 92 24 112/62 100 07/16/15 08:00 92 07/16/15 06:00 95 07/16/15 05:00 100 35 07/16/15 04:00 89 07/16/15 04:00 98.4 84 24 104/57 98 07/16/15 02:00 90 07/16/15 01:09 99 35 07/16/15 00:00 90 07/16/15 00:00 98.4 90 25 109/58 98 07/15/15 22:02 100 35 07/15/15 22:00 97 07/15/15 21:01 100 T-piece 6.00 50 07/15/15 20:00 98.7 85 47 130/70 97 07/15/15 20:00 85 07/15/15 18:00 89 I/O 07/15/15 07/15/15 07/15/15 07/16/15 07/16/15 07/16/15 07:00 15:00 23:00 07:00 15:00 23:00 Intake Total 543 ml 664 ml 452 ml 528 ml Output Total 550 ml 480 ml 400 ml 450 ml Balance -7 ml 184 ml 52 ml 78 ml Tube Feeding 543 ml 564 ml 452 ml 528 ml Other 100 ml Output Urine Total 550 ml 450 ml 400 ml 450 ml Chest Tube Drainage Total 30 ml 0 ml 0 ml # Bowel Movements 0 0 1 Result Diagram: 07/16/15 0457 07/16/15 0459 Objective Remarks GENERAL: MBMN male on Vent. SKIN: Warm and dry. HEAD: Normocephalic. EYES: No scleral icterus. No injection or drainage. NECK: Supple, trachea midline. No JVD or lymphadenopathy. has trach CARDIOVASCULAR: Regular rate and rhythm without murmurs, gallops, or rubs. RESPIRATORY: Breath sounds equal bilaterally. No accessory muscle use. Right chest tube to suction GASTROINTESTINAL: Abdomen soft, non-tender, nondistended. PEG tube in place MUSCULOSKELETAL: No cyanosis, or edema. BACK: Nontender without obvious deformity. No CVA tenderness. A/P Assessment and Plan VDRF S/P Trach Parkinson's diasease Dementia UTI Small PTX--resolved PLAN: ABX Meropenm, Diflucan and Tobra nebs TF Add Ativan 0.[address] to suction T-Tube CT to water seal. Severiano Ag MD Jul 16, 2015 16:34
--- NOTE | 2015-07-16 19:32 | HHI.HCPN ---
Reason for visit a. To assist with evaluation and management of symptoms including: dyspnea ; pain b. To assist medical decision maker(s) with: better understanding of current medical conditions; weighing benefits/burdens of medical treatment options; making medical treatment decisions. . Subjective/Interval History Patient is sleeping soundly at time of my visit. He awakens briefly to voice/ exam, but quickly drifts back to sleep. He remains non-communicative. Placed back on mechanical ventilation last night for tachypnea. No other significant change. No drainage from right chest tube. Has required 3 doses of 5 mg oral morphine over last 24 hours (in addition to his fentanyl patch). CXR without pneumothorax. Afebrile. VS stable except for some episodes of tachypnea. Urine output good. Bowels moving. CBC/Chem panel stable. From Dr. Pickard's initial palliative care consultation of 07/15/15... This is the 5th acute care [facility] admission in the last 10 months for this unfortunate 54 y/o male [facility] intermediate resident with advanced Parkinson's disease ; dementia; tracheostomy and PEG tube who was sent to the ED from his facility on 06/18/15 because of fevers, labored breathing, worsening mental status; and purulent looking sputum at the trach site. The patient has had multiple hospitalizations which included stays in the intensive care unit for various infections. He had a urinary tract infection with multidrug resistant ESBL on 02/19/15. He was last MRSA positive on . jail notes from the facility indicate that his current baseline is: * Bedbound status * Unable to communicate * NPO -- on tube feedings at 85 cc /hr * Dependent for all ADLs In the emergency Department, initial vital signs were as follows > temperature 100.9; pulse 98; respiratory rate 38; blood pressure 104/61; pulse oximetry 99% on room air via trach collar. Initial physical examination the emergency department revealed the following > patient was frail and chronically ill-appearing. Skin showed no obvious wounds. Head, eyes, ENT, neck, cardiovascular, respiratory, gastrointestinal exams were unremarkable. Neurologically, the patient was unable to answer questions or respond or follow commands. Initial diagnostic testing revealed the following: * CBC showed WBC 16.4; hemoglobin 11.3; platelet count 176 * Coagulation profile showed PT 11.4; INR 1.1; PTT 29.4 * Chemistry profile showed sodium 141; potassium 4.5; chloride 105; CO2 27.4; anion gap 9; BUN 21; creatinine 0.85; estimated GFR 95; glucose 116; calcium 9.6 * Liver function tests showed total bilirubin 0.6; AST 23; ALT 38; alkaline phosphatase 59; total protein 7.5; albumen 3.2 * Urinalysis was remarkable for large occult blood; large leukocyte esterase; few bacteria; few yeast with hyphae; few budding yeast. * Arterial blood gases on trach mask at 40% showed pH 7.53; PCO2 33; PaO2 108; bicarbonate 27; base excess 4.2 * Chest x-ray showed no acute cardiopulmonary disease * Head CT showed diffuse atrophy unchanged from prior exam. * CT of the abdomen and pelvis showed chronic nonspecific urinary bladder wall thickening; bladder collapsed with Valdez catheter in place; chronic bilateral mid to lower lung zone groundglass opacity; nonobstructing left renal calculus; distended rectum. * The emergency room doctor diagnosed severe sepsis. The patient was given 2 L of IV fluid and broad-spectrum antibiotic-coated verge in the emergency department. Cultures were obtained. Valdez catheter was changed. As the patient was markedly tachypneic with increased work of breathing and use of accessory muscles during his stay in the emergency department. He was placed on CPAP and subsequently intubated and placed on mechanical ventilation. Critical care was consulted and the patient was admitted to the intensive care unit. Further examination revealed a stage II 6 x 2 cm sacral wound. Urine culture on admission grew out Heena of 2 different species. Sputum culture grew out Klebsiella pneumonia ESBL positive as well as pseudomonas. Blood culture grew out coag-negative staph and staph epidermidis. Both infectious disease and pulmonology were consulted. The patient slowly improved, was extubated, and critical care signed off on . However, on 07/06 the patient had to be placed back on the ventilator. A right sided pneumothorax was noted and patient underwent chest tube placement by interventional radiology. Pneumothorax has appeared to resolve on most recent chest x-ray. Sputum, blood, and urine cultures from 07/07/15 are all negative. White blood count is currently down to 7. Hemoglobin is 10.6. Albumen is suboptimal at 3.0. Renal function is normal. He is currently off anti-biotics. Current pain regimen includes the following: * Fentanyl patch; 50 g per hour * Morphine sulfate 5 mg sublingually or via the tube every 4 hours when necessary (he has been using 1-2 doses of this per day) The patient was tolerating CPAP earlier today and has since been removed from the ventilator and is on a T-piece at 40% FI02. At time of my visit, eyes are open. He intermittently tracks. He cannot follow commands and makes no attempt to interact. . Family/friend interactions I was able to contact patient's daughter -- Radha -- the health care proxy -- this evening. We spoke for about 20 minutes. I told her about the reason for admission and the current hospital course. I explained that recurrent infections are quite common in people who cohen bedbound with end stage Parkinson 's and dementia and that even with the best care, recurrent hospitalizations are likely going forward. I asked her about her interpretations of her father' s goals of medical treatment. Radha last saw her father a few weeks ago. She believes strongly that he recognizes her and tries to tell her he loves her when he sees her. She tells me that he is a fighter and has always been a fighter and would want to continue with aggressive care including life support and resuscitation. She confirms that she wants to continue to serve as proxy. I answered all questions. . Advance Directives Living Will: Never completed Health Care Surrogate: Copy in medical record Durable Power of Manager Of Loss Prevention Operations: Never completed Advance Directive Specifics Date completed: Patient visited Scott Mack, Manager Of Loss Prevention Operations in March and again in November 2014. The patient was encouraged to complete Advance directive documents but never did them. Dr. Pickard personally called Mr. Mack ([phone]) to check for advance directives. Health Care Surrogate(s): The patient completed a health care surrogate document dated 09/02/14 desigating his friend Bola Nolasco as surrogate. Mr. Nolasco was not aware of this and has declined serving in that capacity. The patient has an adult daughter -- Radha Foreman who is willing to serve as health care proxy decision maker. Patient's mother, Teresa is aware. Objective Vital Signs Date Time Temp Pulse Resp B/P Pulse Ox O2 Delivery O2 Flow Rate FiO2 07/16/15 18:00 35 07/16/15 18:00 93 07/16/15 17:49 100 35 07/16/15 17:19 44 07/16/15 16:00 90 07/16/15 16:00 98.2 90 44 153/89 96 07/16/15 14:00 91 07/16/15 12:00 98.8 91 30 111/59 93 07/16/15 12:00 91 07/16/15 10:38 100 T-piece 7.00 35 07/16/15 10:25 99 35 07/16/15 10:00 95 07/16/15 08:00 35 07/16/15 08:00 98.0 92 24 112/62 100 07/16/15 08:00 92 07/16/15 06:00 95 07/16/15 05:00 100 35 07/16/15 04:00 89 07/16/15 04:00 98.4 84 24 104/57 98 07/16/15 02:00 90 07/16/15 01:09 99 35 07/16/15 00:00 90 07/16/15 00:00 98.4 90 25 109/58 98 07/15/15 22:02 100 35 07/15/15 22:00 97 07/15/15 21:01 100 T-piece 6.00 50 07/15/15 20:00 98.7 85 47 130/70 97 07/15/15 20:00 85 Intake & Output 07/16/15 07/16/15 07:00 19:00 Intake Total 980 ml 889 ml Output Total 850 ml 651 ml Balance 130 ml 238 ml Tube Feeding 980 ml 709 ml Tube Irrigant 180 ml Output Urine Total 850 ml 650 ml Stool Total 1 ml Chest Tube Drainage Total 0 ml # Bowel Movements 1 Physical Exam CONSTITUTIONAL/GENERAL: This is a thin, pale, contracted, chronically ill appearing male on a trach to T-tube in the MICU. No apparent distress. TUBES/LINES/DRAINS: Trach; valdez; SCDs; right chest tube; soft wrist restraints ; peripheral iv left forearm; SKIN: No jaundice, rashes, or lesions. No wounds seen anteriorly -- did not examine sacral area. Skin temperature appropriate. Not diaphoretic. HEAD: Atraumatic. Normocephalic. EYES: Pupils equal and round. No scleral icterus. No injection or drainage. Fundi not examined. ENT: Appears to hear loud noises; Nose without bleeding or purulent drainage. Throat without visible erythema, exudates, masses, or lesions. NECK: Trachea midline. CARDIOVASCULAR: Regular rate and rhythm without murmurs, gallops, or rubs. No JVD. Peripheral pulses symmetric. RESPIRATORY/CHEST: Symmetric, unlabored respirations. Clear to auscultation. Breath sounds equal bilaterally with diminished breath sounds. No wheezes, rales , or rhonchi. GASTROINTESTINAL: Abdomen soft, non-tender, nondistended. No hepato-splenomegaly , or palpable masses. No guarding. Bowel sounds present. GENITOURINARY: Without palpable bladder distension. Valdez catheter in place. MUSCULOSKELETAL: Extremities without clubbing, cyanosis, or edema. Contractures. No calf tenderness. No mottling . LYMPHATICS: Not examined NEUROLOGICAL: Sleeping soundly. Awakens to loud voice but quickly drifts back to sleep. Small movements of all extremities. Tremor in feet. Unable to follow commands. PSYCHIATRIC: Unable to assess due to level of responsiveness. . Diagnostic Tests Laboratory Laboratory Tests Test 07/15/15 07/16/15 07/16/15 03:28 04:57 04:59 White Blood Count 7.0 TH/MM3 8.3 TH/MM3 (4.0-11.0) (4.0-11.0) Red Blood Count 3.59 MIL/MM3 3.77 MIL/MM3 (4.50-5.90) (4.50-5.90) Hemoglobin 10.6 GM/DL 11.2 GM/DL (13.0-17.0) (13.0-17.0) Hematocrit 33.1 % 34.7 % (39.0-51.0) (39.0-51.0) Mean Corpuscular Volume 92.2 FL 92.1 FL (80.0-100.0) (80.0-100.0) Mean Corpuscular Hemoglobin 29.4 PG 29.6 PG (27.0-34.0) (27.0-34.0) Mean Corpuscular Hemoglobin 31.9 % 32.2 % Concent (32.0-36.0) (32.0-36.0) Red Cell Distribution Width 13.6 % 13.5 % (11.6-17.2) (11.6-17.2) Platelet Count 178 TH/MM3 199 TH/MM3 (150-450) (150-450) Mean Platelet Volume 10.7 FL 10.7 FL (7.0-11.0) (7.0-11.0) Neutrophils (%) (Auto) 62.9 % 67.1 % (16.0-70.0) (16.0-70.0) Lymphocytes (%) (Auto) 21.6 % 17.7 % (9.0-44.0) (9.0-44.0) Monocytes (%) (Auto) 6.8 % (0.0-8.0) 6.7 % (0.0-8.0) Eosinophils (%) (Auto) 8.2 % (0.0-4.0) 8.1 % (0.0-4.0) Basophils (%) (Auto) 0.5 % (0.0-2.0) 0.4 % (0.0-2.0) Neutrophils # (Auto) 4.4 TH/MM3 5.5 TH/MM3 (1.8-7.7) (1.8-7.7) Lymphocytes # (Auto) 1.5 TH/MM3 1.5 TH/MM3 (1.0-4.8) (1.0-4.8) Monocytes # (Auto) 0.5 TH/MM3 0.6 TH/MM3 (0-0.9) (0-0.9) Eosinophils # (Auto) 0.6 TH/MM3 0.7 TH/MM3 (0-0.4) (0-0.4) Basophils # (Auto) 0.0 TH/MM3 0.0 TH/MM3 (0-0.2) (0-0.2) CBC Comment DIFF FINAL DIFF FINAL Differential Comment Sodium Level 146 MEQ/L 145 MEQ/L (136-145) (136-145) Potassium Level 3.9 MEQ/L 4.4 MEQ/L (3.5-5.1) (3.5-5.1) Chloride Level 102 MEQ/L 102 MEQ/L (98-107) (98-107) Carbon Dioxide Level 36.4 MEQ/L 35.6 MEQ/L (21.0-32.0) (21.0-32.0) Anion Gap 8 MEQ/L (5-15) 7 MEQ/L (5-15) Blood Urea Nitrogen 21 MG/DL (7-18) 23 MG/DL (7-18) Creatinine 0.60 MG/DL 0.60 MG/DL (0.60-1.30) (0.60-1.30) Estimat Glomerular Filtration 141 ML/MIN 141 ML/MIN Rate (>89) (>89) Random Glucose 117 MG/DL 122 MG/DL (74-106) (74-106) Calcium Level 10.0 MG/DL 10.0 MG/DL (8.5-10.1) (8.5-10.1) Magnesium Level 2.2 MG/DL 2.2 MG/DL (1.5-2.5) (1.5-2.5) Total Bilirubin 0.3 MG/DL (0.2-1.0) Aspartate Amino Transf 15 U/L (15-37) (AST/SGOT) Alanine Aminotransferase 11 U/L (12-78) (ALT/SGPT) Alkaline Phosphatase 72 U/L (45-117) Total Protein 7.6 GM/DL (6.4-8.2) Albumin 3.0 GM/DL (3.4-5.0) . Result Diagram: 07/16/15 0457 07/16/15 0459 Microbiology * Urine culture on admission grew out Heena of 2 different species. * Sputum culture grew out Klebsiella pneumonia ESBL positive as well as pseudomonas. * Blood culture grew out coag-negative staph and staph epidermidis. . Imaging Last Impressions Chest X-Ray 07/16/15 0600 Signed Impressions: Service Date/Time: July 03:35 - CONCLUSION: Underinflated examination. Right chest tube is present and no pneumothorax is visualized. Erlin Barajas MD Chest CT 07/11/15 0000 Signed Impressions: Service Date/Time: Saturday, July 11, 2015 09:49 - CONCLUSION: Scattered patchy densities significantly improved from previous study. Tiny anterior right basilar pneumothorax. Right-sided chest tube in good position. Néstor Matamoros MD Chest Tube Insertion 07/07/15 0000 Signed Impressions: Service Date/Time: Tuesday, July 07, 2015 17:14 - CONCLUSION: Uncomplicated right chest tube placement as above. Tai Taylor Jr., MD Head CT 06/18/151902 Signed Impressions: Service Date/Time: June 19:31 - CONCLUSION: Diffuse atrophy unchanged. No acute intracranial findings. Kush Briscoe MD Abdomen/Pelvis CT 06/18/151902 Signed Impressions: Service Date/Time: June 19:36 - CONCLUSION: 1. Chronic nonspecific urinary bladder wall thickening. Bladder collapsed with Valdez catheter in place. 2. Chronic bilateral mid to lower lung zone groundglass opacity. 3. Nonobstructing left renal calculus. 4. Distended rectum. Kush Briscoe MD . Procedures * Mechanical ventilation * Chest tube placement on right 07/07/15 . Assessment and Plan Disease Oriented Problem List: (1) Acute respiratory failure Comment: Secondary to pneumonia (2) Pneumonia Comment: Cultures have been positive for Pseudomonas AND Klebsiella ESBL (3) Pneumothorax on right (4) Septic shock Comment: Blood cx have been postiive for Staph coag neg and Staph epidermidis . (5) Parkinson disease (6) Moderate malnutrition (7) UTI (urinary tract infection) Comment: Cultures have been positive for Heena (tropicalis and glabrata) (8) Chronic respiratory failure Symptom Scale: (1) Pain 0-10 Scale: Unable to quantify Comment: Sources of pain might include wound, prolonged bedbound status, contractures, restraints, valdez, vascular access catheters. Appears comfortable on current regimen. ,l (2) Dyspnea 0-10 Scale: Unable to quantify Comment: Still intermittently tachypnic off the vent. . 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 Severe dementia. Daughter, mother, and brother are involved. Spiritual: Jain. Has been a member for [facility] [employer] and members have provided both community support and spiritual support in the past. Legal: No advance directives. Daughter (Radha Foreman) is legal proxy and lives 4 hours away. . Ethical issues impacting care: None. . Important Contacts * Radha Foreman (daughter and proxy) [phone] * Teresa Perea (mother -- lives in [employer]) [phone] . Prognosis Patient has end stage Parkinson's with end stage dementia. He is a [facility] [place] resident and has required multiple hospitalizations for sepsis. He is a chronic trach/PEG tube patient with contractures and skin breakdown. Should family continue to want aggressive care, he will continue to go back and forth from facility to hospital until such time that we are no longer able to overcome the sepsis. Patient is hospice eligible whenever family is ready to transition to "comfort measures only." . Code Status: Full Code Plan * Code status: FULL CODE * Decision making: Patient is incapacitated and will not regain capacity. There is no designated health care surrogate. Daughter, Radha Foreman, is legal proxy under [place] statutes but can be hard to contact at times. * Goals: Daughter -- Radha-- the proxy confirms that her father "is a fighter and was always a fighter" and would therefore want to continue with all aggressive measures including resuscitation and life support. * Pain: Sources of pain are unclear as patient in non communicative, but would include prolonged bedbound status; tubes and lines; contractures; wound; etc. Current regimen appears to adequate while allowing for wean off vent. No further recommendations at this time. * Dyspnea: Dyspnea was due to pneumonia and pneumothorax. Now improving. No further recommendations at this time. * Malnutrition: Anticipate improvement as infection clears and patient is tolerating tube feeds. * Agitation/Behavioral issues: Adequately controlled with current neuroleptic and benzo regimen. No further recommendations at this time. * Palliative care will try and meet with Radha (proxy) in person when she next comes to visit. . . Time Spent Total Floor Time (mins): 35 (Total floor time includes chart review, patient exam, and the above referenced telphone call with the proxy decision maker. ) Face to Face Time (mins): 10 >50% Counseling/Coord of Care: Yes Attestation To help prompt me to consider important information that might be impacting today's encounter and assessment, information from prior notes written by myself or my colleagues may have been "brought forward" into today's note. My signature on this note, however, is an attestation that I personally performed the exam, history, and/or decision-making noted today, and, unless otherwise indicated, the interactions with patient, family, and staff as well as the review of records all occurred today. I also attest that the listed assessment and stated plan reflect my best clinical judgment today based on the combination of historical information, prior notes, and today's exam/ interactions. When time spent is documented, it refers only to time spent today by the signer, or if indicated, combined time spent today by collaborating physician/nurse practitioner. . Pascual Pickard MD Jul 16, 2015 19:32
[2015-07-16] MEDS: OLANZapine 2.5 MG TAB GT SCH (20:53)
[2015-07-16] MEDS: ENOXAPARIN SODIUM 30 MG/0.3 ML SYRINGE SQ SCH (21:43)
[2015-07-17] VITALS (19 sets, daily range): BP systolic 99–107; BP diastolic 57–64; PULSE 80–94; RESP 16–30; TEMP 97.5–99; O2SAT 97–100
[2015-07-17] MEDS: CHLORHEXIDINE GLUCONATE 2 % 1 PACK (2 CLOTHS) TOP SCH (04:00)
[2015-07-17] MEDS: RESP: SODIUM CHLORIDE 3% 4 ML NEB NEB SCH ×4 (04:45→19:54)
[2015-07-17] MEDS: clonazePAM 1 MG TAB PO SCH ×3 (06:01→21:24)
[2015-07-17] MEDS: CARBIDOPA/LEVODOPA 25 MG/100 MG TAB GT SCH ×3 (06:01→21:23)
[2015-07-17] MEDS: SENNOSIDES SYRUP 8.8 MG/5 ML CUP PO SCH (07:37)
[2015-07-17] MEDS: LANSOPRAZOLE SOLUTAB 30 MG TAB NG SCH (07:37)
[2015-07-17] MEDS: LACTOBACILLUS ACIDOPHILUS TAB PO SCH ×3 (07:37→17:44)
[2015-07-17] MEDS: CHLORHEXIDINE 0.12% (ORAL KIT) 15 ML CUP MT SCH ×2 (07:37→19:40)
[2015-07-17] MEDS: PARoxetine HCL 20 MG TAB G-TUBE SCH (07:37)
[2015-07-17] MEDS: MIDODRINE 5 MG TAB G-TUBE SCH ×2 (07:38→21:23)
[2015-07-17] MEDS: REMOVE OLD PATCH TD SCH (07:38)
[2015-07-17] MEDS: fentaNYL 50 MCG/HR PATCH TD SCH (07:38)
[2015-07-17] MEDS: GABAPENTIN 300 MG CAP G-TUBE SCH ×2 (07:38→21:23)
[2015-07-17] MEDS: DOCUSATE SODIUM 100 MG/10 ML UDC PO SCH ×2 (07:38→21:23)
[2015-07-17] MEDS: QUEtiapine FUMARATE 25 MG TAB G-TUBE SCH ×2 (07:38→21:23)
[2015-07-17] MEDS: ARTIFICIAL TEARS OPTH SOLN 15 ML BTL EACH EYE SCH ×3 (07:38→17:44)
[2015-07-17] MEDS: SODIUM CHLORIDE 0.9% FLUSH 5 ML FLUSH IVF SCH ×2 (07:39→21:24)
[2015-07-17] MEDS: RESP: ALBUTEROL 2.5 MG/3 ML NEB (PRN) INH ×2 (08:45→16:15)
--- NOTE | 2015-07-17 08:56 | HHI.CCPN ---
Subjective Remarks/Hospital Course 06/17: Pt is a 54 yr man with multiple medial problems including Parkinson's disease, advanced dementia, hyponatremia, anxiety, pneumonia, GERD, cognitive disorder, and multidrug resistant UTI- ESBL02/19/15 , who resides in a senior living. Pt by report was found by staff in senior living to be less alert and having respiratory difficultly and fevers. Pt was brought to ED adn placed on ventilator. His workup was inclusive of labs, chest xray and ct head and abd/pelvis. WBC 16.4, +UTI, lactic acid 4, troponin ,0.02, BUN/ cre 18/ 0.76. CT head 06/18/15: diffuse atrophy unchanged. No acute intracranial findings ct abd/ pelvis with IV contrast: 06/18/15 Conclusion: 1. Chronic nonspecific urinary bladder wall thickening. Bladder collapsed with Putnam catheter in place. 2.Chronic bilateral mid to lower zone groundglass opacity. 3. Nonobstructing left renal calculus. 4. Distended rectum Pt admitted and fluid and abx ordered. 06/18: Drowsy, easily arousable. On mechanical ventilation via tracheostomy. Tachypneic. Resting tremor noted. 06/19: Drowsy, arousable. On mechanical ventilation via tracheostomy. 06/20: Drowsy, arousable. Remains on mechanical ventilation via tracheostomy. We'll repeat blood cultures, UA and urine cultures. Fluconazole IV added in view of yeast in urine. 07/06: Reconsulted as patient return to the ventilator on a right ventricular due to tachypnea. Low-grade temperatures. Tolerating tube feeding. Extremity encephalopathic demented patient with difficult neurological examination. 07/07: Status post chest tube placement by IR for right pneumothorax 07/06. Afebrile. Tolerating tube feeds. Positive BM. Currently tachypneic on the ventilator. Does not appear to be any acute distress. 07/08: Afebrile. Tolerating tube feeding. He is comfortable currently on CPAP trials 11/10. Positive BM. 07/09: Afebrile. Tolerating tube feeding. Appears comfortable on T bar. Positive BM. 07/10: Afebrile. Eyes are open. Remained on T piece overnight. Tolerating tube feeding. 07/11: MAXIMUM TEMPERATURE 100. Currently 98.6. Eyes are open. On ACV overnight secondary to "tachypnea and sweating". Switching back to PSV trials today. Goal is T piece during daytime, CPAP at night. 07/12: No acute events overnight. On PSV 20/06 -attempt TP up to 6 hours today. No pneumothorax on chest x-ray 07/13: Placed back on full ventilator support for tachypnea. Otherwise clinically unchanged. No fever today 07/14: Patient was on T piece yesterday evening, placed back on PSV overnight, patient mechanical ventilation this morning. Patient appears to be struggling with mechanical ventilation. Patient placed back on PSV with improvement 07/15: Patient placed back on mechanical ventilation last evening due to respiratory rate. It was indicated patient was tachypnea can the 40s. Patient on mechanical ventilation this time with respiration rate mid 20s. Chest tube still in place without any output, chest x-ray still indicating resolution of pneumothorax. 07/16: Patient seen and examined today. Patient placed back on mechanical ventilation overnight due to respiratory rate. Even on mechanical ventilation patient has respiration rate in the 30s. Patient afebrile, blood pressure stable. Continue vent weaning Objective - Vital Signs Date Time Temp Pulse Resp B/P Pulse Ox O2 Delivery O2 Flow Rate FiO2 07/17/15 08:00 99.0 94 30 107/61 100 07/17/15 08:00 35 07/16/15 10:38 T-piece 7.00 I/O 07/16/15 07/16/15 07/17/15 08:00 16:00 00:00 Intake Total 528 ml 889 ml 525 ml Output Total 450 ml 651 ml 250 ml Balance 78 ml 238 ml 275 ml Result Diagram: 07/16/15 0457 07/16/15 0459 Other Results Microbiology Date/Time Procedure Status Source Growth 07/07/15 20:30 Urine Culture - Final Complete Urine Catheterized Urine NO GROWTH IN 48 HOURS. 07/07/15 15:50 Aerobic Blood Culture - Preliminary Resulted Blood Peripheral NO GROWTH IN 4 DAYS 07/07/15 15:50 Anaerobic Blood Culture - Final Resulted Blood Peripheral QNS - SEE AEROBE REPORT 07/07/15 14:50 Gram Stain - Final Complete Sputum Endotracheal 07/07/15 14:50 Sputum Culture - Final Complete Sputum Endotracheal LIGHT GROWTH NORMAL RESPIRATORY ANGY Imaging Last Impressions Chest X-Ray 07/11/15 0600 Signed Impressions: Service Date/Time: Saturday, July 11, 2015 04:08 - CONCLUSION: Small right pneumothorax noted. Jeramie Manjarrez MD Chest CT 07/11/15 0000 Signed Impressions: Service Date/Time: Saturday, July 11, 2015 09:49 - CONCLUSION: Scattered patchy densities significantly improved from previous study. Tiny anterior right basilar pneumothorax. Right-sided chest tube in good position. Néstor Matamoros MD Chest Tube Insertion 07/07/15 0000 Signed Impressions: Service Date/Time: Tuesday, July 07, 2015 17:14 - CONCLUSION: Uncomplicated right chest tube placement as above. Tai Taylor Jr., MD Head CT 06/18/151902 Signed Impressions: Service Date/Time: , June 18, 2015 19:31 - CONCLUSION: Diffuse atrophy unchanged. No acute intracranial findings. Kush Briscoe MD Abdomen/Pelvis CT 06/18/151902 Signed Impressions: Service Date/Time: , June 18, 2015 19:36 - CONCLUSION: 1. Chronic nonspecific urinary bladder wall thickening. Bladder collapsed with Putnam catheter in place. 2. Chronic bilateral mid to lower lung zone groundglass opacity. 3. Nonobstructing left renal calculus. 4. Distended rectum. Kush Briscoe MD Objective Remarks GENERAL: Well-developed, cachectic, he is awake, does not follow commands HEENT: Head is normocephalic without any lesions or masses noted. Facial features are symmetric. Eyes: Pupils equal round reactive to light. Conjunctivae were clear. Oropharyngeal: There is mucosal is dry without any mass or lesions NECK: Supple without any masses. Trachea midline no deviation. No JVD, tracheostomy noted CARDIAC: Regular rhythm, regular rate. S1/S2 are heard. No murmurs gallops or rubs. LUNGS: Clear to auscultation bilaterally. No wheeze, rhonchi or rales. No use of accessory muscles. Chest tube at 40mm, no airleak, no output overnight ABDOMEN: Soft, nontender. Nondistended. Bowel sounds heard in all 4 quadrants. No organomegaly or masses. Negative rebound, negative guarding. PEG tube noted , clean and dry EXTREMITIES: No edema, pulses are equal bilaterally. No cyanosis or clubbing NEUROLOGY: Patient with significant contractures of the right lower extremity, upper extremities. Muscle wasting bilateral upper and lower extremities Urinary Catheter: Yes Assessment to: Continue Date of Insertion: June 24, 2015 Vascular Central Line Catheter: No A/P Assessment and Plan Neuro/Psych: Toxic metabolic Encephalopathy - acute on chronic Parkinson's disease Cognitive disorder/Underlying dementia? CT head 06/18/15: - diffuse atrophy unchanged. No acute intracranial findings Continue Sinemet 25/100 3 times a day via PEG, Seroquel 25 mg twice a day, olanzapine 5 mg a night, Klonopin 2 mg every 8 hours, Paxil 20 daily and Neurontin 300 mg twice a day Continue Roxanol 5 mg every 4 hours when necessary pain and fentanyl patch 50 g every 3 days on 07/07. Resp: Acute on chronic respiratory failure Chronic trach, acute on chronic resp failure, pneumonia Right pneumothorax status post pigtail catheter Patient placed back on mechanical ventilation, AC 16/500/5+/35%. Continue wean to TPs as tolerated. mechanical ventilation as needed, Duo nebs 4 times a day and when necessary albuterol Pulmonology/Dr. Ag following Status post right pigtail chest tube by IR 07/06, waterseal 07/15. No output overnight Follow chest x-ray revealed 8 mm right-sided pneumothorax. CT chest ordered 07/10 revealed a very tiny right apical pneumothorax. Chest x-ray 07/11, 07/12, 07/14, 07/15 revealed no pneumothorax. Discussed with radiology who indicates that they have been following the chest tube and will evaluate today and remove it if stable Cardiac History of orthostasis History of CAD, HLP, Hypertension Continue Midodrine 5 mg twice a day Watch for hypotension troponin <0.02 GI: Malnutrition/protein calorie - moderate Status post PEG Hemorrhoids Gastroesophageal reflux disease - Tolerating Jevity 1.5 at 60 cc an hour - Currently Prevacid 30 mg per PEG tube daily for GERD - Current Colace/senna for bowel regimen. Positive bowel movements : - Strict intake output, monitor and replete electrolytes, follow BUN/creatinine - electrolyte replacement protocol ordered ID: Candiduria ESBL positive Klebsiella/Pseudomonas pneumonia MRSA colonization - multidrug resistant UTI- ESBL1/ , MRSA + 03/20/15 - Heena glabrata in urine 03/19/15 - On tobramycin aerosols twice a day. Stop date 15 days - Recheck blood, sputum and urine cultures 07/06 all currently pending - 5/12 - blood cultures 2 - CONS/staph epi - 06/17 - sputum - ESBL positive Klebsiella/Pseudomonas - 06/17 - urine - C. glabrata/tropicalis - treated with Diflucan Endo: - If indicated sliding scale coverage Renal: Nonobstructing left renal calculus - Follow-up on BMP, stable Heme Anemia - Follow-up on CBC, stable MSK Bilateral lower extremity Contractures Stage II DU - Wound care evaluate and treat - Continue physical therapy DVT prof: scd and Lovenox ordered GI prof: Prevacid Disposition: Due to the patient's chronic medical conditioning's which seem to be worsening, more frequent hospitalizations, records do indicate that the patient has had previous palliative care consults. Palliative care was consulted and following the patient, trying to contact patient's healthcare proxy Critical Care: The total care time was 35 minutes. Chest to water seal 24 hours. Ok to remove defer to radiology. Agree with AVNI Lubin's assessment and plan German Medina Jul 17, 2015 08:56 Hilario Kern MD Jul 17, 2015 11:05
--- NOTE | 2015-07-17 09:07 | RADRPT ---
EXAM DATE/TIME: 07/17/2015 08:28 [facility] COMPARISON: CHEST SINGLE AP, July 15, 2015, 2:30. CHEST SINGLE AP, July 16, 2015, 3:35. INDICATIONS : Evaluate for pneumothorax. MEDICAL HISTORY : Hypertension. Diabetes mellitus type II. SURGICAL HISTORY : None. ENCOUNTER: Subsequent ACUITY: 1 month PAIN SCORE: Non-responsive. LOCATION: Bilateral chest FINDINGS: A small right-sided chest tube is again noted with its pigtail located in the right apex. There is n o pneumothorax. A tracheostomy tube is in good position 4 cm above the kalie. The lungs are unchan ged in appearance compared to the previous examination. CONCLUSION: 1. No recurrent pneumothorax on the right. 2. No significant change in appearance of the lungs compared to the previous examination. Blair Hill MD on July 17, 2015 at 8:59 Board Certified Radiologist. This report was verified electronically.
--- NOTE | 2015-07-17 12:20 | RADRPT ---
EXAM DATE/TIME: 07/17/2015 00:00 [facility] COMPARISON: No previous studies available for comparison. INDICATIONS : RIGHT CHEST TUBE REMOVAL, PNEUMOTHORAX RESSOLVED. DEVICE(S): 1.) Vaseline occlusive dressing PROCEDURE : Chest tube removal. Using aseptic technique the previously placed chest tube was easily removed in one piece and Vaseline gauze and sterile dressing was applied. Chest radiograph is to be obtained. CONCLUSION: Uncomplicated chest tube removal. Erlin Mack MD on July 17, 2015 at 12:17 Board Certified Radiologist. This report was verified electronically.
--- NOTE | 2015-07-17 14:15 | HHI.HCPN ---
Reason for visit a. To assist with evaluation and management of symptoms including: dyspnea ; pain b. To assist medical decision maker(s) with: better understanding of current medical conditions; weighing benefits/burdens of medical treatment options; making medical treatment decisions. . Subjective/Interval History Right sided chest tube has been removed, otherwise no significant change. Continues to have periods of tachypnea into the 40s which limits CPAP trials. A consult has been placed for LTAC placement as it appears there will be a prolonged time on ventilator support. Patient is back on fentanyl patch. Morphine being given primarily for respiratory rate. Increased respiratory rate is not associated with tachycardia per nursing staff. Patient is sleeping soundly at time of my visit. Does not awaken to voice/ exam. Afebrile. VSS except for periods of tachypnea. Afebrile. VS stable except for some episodes of tachypnea. Urine output good. Bowels moving. No new blood diagnostics. CXR post chest tube withdrawal is pending. From Dr. Pickard's initial palliative care consultation of 07/15/15... This is the 5th [facility] care [facility] admission in the last 10 months for this unfortunate 54 y/o male [facility] resident with advanced Parkinson's disease ; dementia; tracheostomy and PEG tube who was sent to the ED from his facility on 06/18/15 because of fevers, labored breathing, worsening mental status; and purulent looking sputum at the trach site. The patient has had multiple hospitalizations which included stays in the intensive care unit for various infections. He had a urinary tract infection with multidrug resistant ESBL on 02/19/15. He was last MRSA positive on . FPC notes from the facility indicate that his current baseline is: * Bedbound status * Unable to communicate * NPO -- on tube feedings at 85 cc /hr * Dependent for all ADLs In the emergency Department, initial vital signs were as follows > temperature 100.9; pulse 98; respiratory rate 38; blood pressure 104/61; pulse oximetry 99% on room air via trach collar. Initial physical examination the emergency department revealed the following > patient was frail and chronically ill-appearing. Skin showed no obvious wounds. Head, eyes, ENT, neck, cardiovascular, respiratory, gastrointestinal exams were unremarkable. Neurologically, the patient was unable to answer questions or respond or follow commands. Initial diagnostic testing revealed the following: * CBC showed WBC 16.4; hemoglobin 11.3; platelet count 176 * Coagulation profile showed PT 11.4; INR 1.1; PTT 29.4 * Chemistry profile showed sodium 141; potassium 4.5; chloride 105; CO2 27.4; anion gap 9; BUN 21; creatinine 0.85; estimated GFR 95; glucose 116; calcium 9.6 * Liver function tests showed total bilirubin 0.6; AST 23; ALT 38; alkaline phosphatase 59; total protein 7.5; albumen 3.2 * Urinalysis was remarkable for large occult blood; large leukocyte esterase; few bacteria; few yeast with hyphae; few budding yeast. * Arterial blood gases on trach mask at 40% showed pH 7.53; PCO2 33; PaO2 108; bicarbonate 27; base excess 4.2 * Chest x-ray showed no acute cardiopulmonary disease * Head CT showed diffuse atrophy unchanged from prior exam. * CT of the abdomen and pelvis showed chronic nonspecific urinary bladder wall thickening; bladder collapsed with Valdez catheter in place; chronic bilateral mid to lower lung zone groundglass opacity; nonobstructing left renal calculus; distended rectum. * The emergency room doctor diagnosed severe sepsis. The patient was given 2 L of IV fluid and broad-spectrum antibiotic-coated verge in the emergency department. Cultures were obtained. Valdez catheter was changed. As the patient was markedly tachypneic with increased work of breathing and use of accessory muscles during his stay in the emergency department. He was placed on CPAP and subsequently intubated and placed on mechanical ventilation. Critical care was consulted and the patient was admitted to the intensive care unit. Further examination revealed a stage II 6 x 2 cm sacral wound. Urine culture on admission grew out Heena of 2 different species. Sputum culture grew out Klebsiella pneumonia ESBL positive as well as pseudomonas. Blood culture grew out coag-negative staph and staph epidermidis. Both infectious disease and pulmonology were consulted. The patient slowly improved, was extubated, and critical care signed off on . However, on 07/06 the patient had to be placed back on the ventilator. A right sided pneumothorax was noted and patient underwent chest tube placement by interventional radiology. Pneumothorax has appeared to resolve on most recent chest x-ray. Sputum, blood, and urine cultures from 07/07/15 are all negative. White blood count is currently down to 7. Hemoglobin is 10.6. Albumen is suboptimal at 3.0. Renal function is normal. He is currently off anti-biotics. Current pain regimen includes the following: * Fentanyl patch; 50 g per hour * Morphine sulfate 5 mg sublingually or via the tube every 4 hours when necessary (he has been using 1-2 doses of this per day) The patient was tolerating CPAP earlier today and has since been removed from the ventilator and is on a T-piece at 40% FI02. At time of my visit, eyes are open. He intermittently tracks. He cannot follow commands and makes no attempt to interact. . Family/friend interactions No family interactions. . Advance Directives Living Will: Never completed Health Care Surrogate: Copy in medical record Durable Power of [employer]: Never completed Advance Directive Specifics Date completed: Patient visited Scott Mack, [employer] in March and again in November 2014. The patient was encouraged to complete Advance directive documents but never did them. Dr. Pickard personally called Mr. Mack ([phone]) to check for advance directives. Health Care Surrogate(s): The patient completed a health care surrogate document dated 09/02/14 desigating his friend Bola Nolasco as surrogate. Mr. Nolasco was not aware of this and has declined serving in that capacity. The patient has an adult daughter -- Radha Foreman who is willing to serve as health care proxy decision maker. Patient's mother, Teresa is aware. Objective Vital Signs Date Time Temp Pulse Resp B/P Pulse Ox O2 Delivery O2 Flow Rate FiO2 07/17/15 12:00 82 07/17/15 12:00 97.5 82 20 103/57 100 07/17/15 12:00 35 07/17/15 10:55 98 35 07/17/15 10:00 85 07/17/15 08:45 97 35 07/17/15 08:38 22 07/17/15 08:00 99.0 94 30 107/61 100 07/17/15 08:00 94 07/17/15 08:00 35 07/17/15 06:00 92 07/17/15 04:45 97 35 07/17/15 04:00 98.8 83 24 106/62 98 07/17/15 04:00 83 07/17/15 04:00 35 07/17/15 02:00 86 07/17/15 01:34 98 35 07/17/15 00:00 91 07/17/15 00:00 35 07/17/15 00:00 98.2 91 26 107/58 98 07/16/15 22:26 95 35 07/16/15 22:00 92 07/16/15 20:09 100 35 07/16/15 20:00 98.6 90 24 107/62 100 07/16/15 20:00 90 07/16/15 20:00 35 07/16/15 18:00 35 07/16/15 18:00 93 07/16/15 17:49 100 35 07/16/15 17:19 44 07/16/15 16:00 90 07/16/15 16:00 98.2 90 44 153/89 96 Intake & Output 07/17/15 07/17/15 07:00 19:00 Intake Total 1243 ml Output Total 675 ml Balance 568 ml Tube Feeding 943 ml Tube Irrigant 300 ml Output Urine Total 675 ml Chest Tube Drainage Total 0 ml # Bowel Movements 0 Physical Exam CONSTITUTIONAL/GENERAL: This is a thin, pale, contracted, chronically ill appearing male on a trach to T-tube in the MICU. No apparent distress. TUBES/LINES/DRAINS: Trach; valdez; SCDs; soft wrist restraints; peripheral iv left forearm; SKIN: No jaundice, rashes, or lesions. No wounds seen anteriorly -- did not examine sacral area. Skin temperature appropriate. Not diaphoretic. HEAD: Atraumatic. Normocephalic. EYES: Pupils equal and round. No scleral icterus. No injection or drainage. Fundi not examined. ENT: Nose without bleeding or purulent drainage. Throat without visible erythema , exudates, masses, or lesions. NECK: Trachea midline. CARDIOVASCULAR: Regular rate and rhythm without murmurs, gallops, or rubs. No JVD. Peripheral pulses symmetric. RESPIRATORY/CHEST: Symmetric, unlabored respirations. Clear to auscultation. Breath sounds equal bilaterally with diminished breath sounds. No wheezes, rales , or rhonchi. GASTROINTESTINAL: Abdomen soft, non-tender, nondistended. No hepato-splenomegaly , or palpable masses. No guarding. Bowel sounds present. GENITOURINARY: Without palpable bladder distension. Valdez catheter in place. MUSCULOSKELETAL: Extremities without clubbing, cyanosis, or edema. Contractures. No calf tenderness. No mottling . LYMPHATICS: Not examined NEUROLOGICAL: Sleeping soundly. Unable to follow commands. PSYCHIATRIC: Unable to assess due to level of responsiveness. . Diagnostic Tests Laboratory Laboratory Tests Test 07/15/15 07/16/15 07/16/15 03:28 04:57 04:59 White Blood Count 7.0 TH/MM3 8.3 TH/MM3 (4.0-11.0) (4.0-11.0) Red Blood Count 3.59 MIL/MM3 3.77 MIL/MM3 (4.50-5.90) (4.50-5.90) Hemoglobin 10.6 GM/DL 11.2 GM/DL (13.0-17.0) (13.0-17.0) Hematocrit 33.1 % 34.7 % (39.0-51.0) (39.0-51.0) Mean Corpuscular Volume 92.2 FL 92.1 FL (80.0-100.0) (80.0-100.0) Mean Corpuscular Hemoglobin 29.4 PG 29.6 PG (27.0-34.0) (27.0-34.0) Mean Corpuscular Hemoglobin 31.9 % 32.2 % Concent (32.0-36.0) (32.0-36.0) Red Cell Distribution Width 13.6 % 13.5 % (11.6-17.2) (11.6-17.2) Platelet Count 178 TH/MM3 199 TH/MM3 (150-450) (150-450) Mean Platelet Volume 10.7 FL 10.7 FL (7.0-11.0) (7.0-11.0) Neutrophils (%) (Auto) 62.9 % 67.1 % (16.0-70.0) (16.0-70.0) Lymphocytes (%) (Auto) 21.6 % 17.7 % (9.0-44.0) (9.0-44.0) Monocytes (%) (Auto) 6.8 % (0.0-8.0) 6.7 % (0.0-8.0) Eosinophils (%) (Auto) 8.2 % (0.0-4.0) 8.1 % (0.0-4.0) Basophils (%) (Auto) 0.5 % (0.0-2.0) 0.4 % (0.0-2.0) Neutrophils # (Auto) 4.4 TH/MM3 5.5 TH/MM3 (1.8-7.7) (1.8-7.7) Lymphocytes # (Auto) 1.5 TH/MM3 1.5 TH/MM3 (1.0-4.8) (1.0-4.8) Monocytes # (Auto) 0.5 TH/MM3 0.6 TH/MM3 (0-0.9) (0-0.9) Eosinophils # (Auto) 0.6 TH/MM3 0.7 TH/MM3 (0-0.4) (0-0.4) Basophils # (Auto) 0.0 TH/MM3 0.0 TH/MM3 (0-0.2) (0-0.2) CBC Comment DIFF FINAL DIFF FINAL Differential Comment Sodium Level 146 MEQ/L 145 MEQ/L (136-145) (136-145) Potassium Level 3.9 MEQ/L 4.4 MEQ/L (3.5-5.1) (3.5-5.1) Chloride Level 102 MEQ/L 102 MEQ/L (98-107) (98-107) Carbon Dioxide Level 36.4 MEQ/L 35.6 MEQ/L (21.0-32.0) (21.0-32.0) Anion Gap 8 MEQ/L (5-15) 7 MEQ/L (5-15) Blood Urea Nitrogen 21 MG/DL (7-18) 23 MG/DL (7-18) Creatinine 0.60 MG/DL 0.60 MG/DL (0.60-1.30) (0.60-1.30) Estimat Glomerular Filtration 141 ML/MIN 141 ML/MIN Rate (>89) (>89) Random Glucose 117 MG/DL 122 MG/DL (74-106) (74-106) Calcium Level 10.0 MG/DL 10.0 MG/DL (8.5-10.1) (8.5-10.1) Magnesium Level 2.2 MG/DL 2.2 MG/DL (1.5-2.5) (1.5-2.5) Total Bilirubin 0.3 MG/DL (0.2-1.0) Aspartate Amino Transf 15 U/L (15-37) (AST/SGOT) Alanine Aminotransferase 11 U/L (12-78) (ALT/SGPT) Alkaline Phosphatase 72 U/L (45-117) Total Protein 7.6 GM/DL (6.4-8.2) Albumin 3.0 GM/DL (3.4-5.0) . Result Diagram: 07/16/15 0457 07/16/15 0459 Imaging Last Impressions Tunnelled Chest Tube Removal 07/17/15 0000 Signed Impressions: Service Date/Time: Friday, July 17, 2015 00:00 - CONCLUSION: Uncomplicated chest tube removal. Erlin Mack MD Chest X-Ray 07/17/15 0000 Signed Impressions: Service Date/Time: Friday, July 17, 2015 08:28 - CONCLUSION: 1. No recurrent pneumothorax on the right. 2. No significant change in appearance of the lungs compared to the previous examination. Blair Hill MD Chest CT 07/11/15 0000 Signed Impressions: Service Date/Time: Saturday, July 11, 2015 09:49 - CONCLUSION: Scattered patchy densities significantly improved from previous study. Tiny anterior right basilar pneumothorax. Right-sided chest tube in good position. Néstor Matamoros MD Chest Tube Insertion 07/07/15 0000 Signed Impressions: Service Date/Time: Tuesday, July 07, 2015 17:14 - CONCLUSION: Uncomplicated right chest tube placement as above. Tai Taylor Jr., MD Head CT 06/18/151902 Signed Impressions: Service Date/Time: June 19:31 - CONCLUSION: Diffuse atrophy unchanged. No acute intracranial findings. Kush Briscoe MD Abdomen/Pelvis CT 06/18/151902 Signed Impressions: Service Date/Time: June 19:36 - CONCLUSION: 1. Chronic nonspecific urinary bladder wall thickening. Bladder collapsed with Valdez catheter in place. 2. Chronic bilateral mid to lower lung zone groundglass opacity. 3. Nonobstructing left renal calculus. 4. Distended rectum. Kush Briscoe MD . Procedures * Mechanical ventilation * Chest tube placement on right 07/07/15 * Chest tube removal 07/17/15 . Assessment and Plan Disease Oriented Problem List: (1) Acute respiratory failure Comment: Secondary to pneumonia (2) Pneumonia Comment: Cultures have been positive for Pseudomonas AND Klebsiella ESBL (3) Pneumothorax on right (4) Septic shock Comment: Blood cx have been postiive for Staph coag neg and Staph epidermidis . (5) Parkinson disease (6) Moderate malnutrition (7) UTI (urinary tract infection) Comment: Cultures have been positive for Heena (tropicalis and glabrata) (8) Chronic respiratory failure Symptom Scale: (1) Pain 0-10 Scale: Unable to quantify Comment: Sources of pain might include wound, prolonged bedbound status, contractures, restraints, valdez, vascular access catheters. Appears comfortable on current regimen. ,l (2) Dyspnea 0-10 Scale: Unable to quantify Comment: Still intermittently tachypnic off the vent. . Pertinent Non-Medical Issues Psychosocial: skilled nursing fdc resident. 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 Severe dementia. Daughter, mother, and brother are involved. Spiritual: Protestant. Has been a member for the [employer] lutheran and members have provided both community support and spiritual support in the past. Legal: No advance directives. Daughter (Radha Foreman) is legal proxy and lives 4 hours away. . Ethical issues impacting care: None. . Important Contacts * Radha Foreman (daughter and proxy) [phone] * Teresa Perea (mother -- lives in [place]) [phone] . Prognosis Patient has end stage Parkinson's with end stage dementia. [facility] a [facility] and has required multiple hospitalizations for sepsis. He is a chronic trach/PEG tube patient with contractures and skin breakdown. Should family continue to want aggressive care, he will continue to go back and forth from facility to hospital until such time that we are no longer able to overcome the sepsis. Patient is hospice eligible whenever family is ready to transition to "comfort measures only." . Code Status: Full Code Plan * Code status: FULL CODE * Decision making: Patient is incapacitated and will not regain capacity. There is no designated health care surrogate. Daughter, Radha Foreman, is legal proxy under [place] statutes but can be hard to contact at times. * Goals: Daughter -- Radha-- the proxy confirms that her father "is a fighter and was always a fighter" and would therefore want to continue with all aggressive measures including resuscitation and life support. * Pain: Sources of pain are unclear as patient in non communicative, but would include prolonged bedbound status; tubes and lines; contractures; wound; etc. Current regimen appears to adequate while allowing for wean off vent. No further recommendations at this time. * Dyspnea: Dyspnea was due to pneumonia and pneumothorax. Now improving but he is not weaning from the vent easily due to tachypnea. May need LTAC placement. No further recommendations at this time. * Malnutrition: Anticipate improvement as infection clears and patient is tolerating tube feeds. * Agitation/Behavioral issues: Adequately controlled with current neuroleptic and benzo regimen. No further recommendations at this time. * Palliative care will try and meet with Radha (proxy) in person when she next comes to visit. . . Attestation To help prompt me to consider important information that might be impacting today's encounter and assessment, information from prior notes written by myself or my colleagues may have been "brought forward" into today's note. My signature on this note, however, is an attestation that I personally performed the exam, history, and/or decision-making noted today, and, unless otherwise indicated, the interactions with patient, family, and staff as well as the review of records all occurred today. I also attest that the listed assessment and stated plan reflect my best clinical judgment today based on the combination of historical information, prior notes, and today's exam/ interactions. When time spent is documented, it refers only to time spent today by the signer, or if indicated, combined time spent today by collaborating physician/nurse practitioner. . Pascual Pickard MD Jul 17, 2015 14:15
--- NOTE | 2015-07-17 14:16 | RADRPT ---
EXAM DATE/TIME: 07/17/2015 13:37 [facility] COMPARISON: CHEST SINGLE AP, July 17, 2015, 8:28. INDICATIONS : Post chest tube removal follow up. MEDICAL HISTORY : Parkinson's. hypertension. diabetes mellitus type 2. SURGICAL HISTORY : None. ENCOUNTER: Subsequent ACUITY: 1 day PAIN SCORE: Non-responsive. LOCATION: chest FINDINGS: A single view of the chest demonstrates the lungs to be symmetrically aerated without evidence of mas s, infiltrate or effusion. The cardiomediastinal contours are unremarkable. Osseous structures are intact. CONCLUSION: Negative for pneumothorax. Milo Jackson MD FACR on July 17, 2015 at 14:10 Board Certified Radiologist. This report was verified electronically.
--- NOTE | 2015-07-17 17:40 | HHI.PR ---
Subjective Remarks 54 YOWM with ChRF,Trach, multiple uti No fever Gets anxious On Fentanyl patch Has right chest tube tolerates T-Tube chest tube removed Objective Vital Signs Vital Signs Date Time Temp Pulse Resp B/P Pulse Ox O2 Delivery O2 Flow Rate FiO2 07/17/15 16:15 100 Ventilator 35 07/17/15 16:15 100 35 07/17/15 16:00 98.3 82 16 103/64 100 07/17/15 16:00 82 07/17/15 16:00 35 07/17/15 14:00 80 07/17/15 12:00 82 07/17/15 12:00 97.5 82 20 103/57 100 07/17/15 12:00 35 07/17/15 10:55 98 35 07/17/15 10:00 85 07/17/15 08:45 97 35 07/17/15 08:38 22 07/17/15 08:00 99.0 94 30 107/61 100 07/17/15 08:00 94 07/17/15 08:00 35 07/17/15 06:00 92 07/17/15 04:45 97 35 07/17/15 04:00 98.8 83 24 106/62 98 07/17/15 04:00 83 07/17/15 04:00 35 07/17/15 02:00 86 07/17/15 01:34 98 35 07/17/15 00:00 91 07/17/15 00:00 35 07/17/15 00:00 98.2 91 26 107/58 98 07/16/15 22:26 95 35 07/16/15 22:00 92 07/16/15 20:09 100 35 07/16/15 20:00 98.6 90 24 107/62 100 07/16/15 20:00 90 07/16/15 20:00 35 07/16/15 18:00 35 07/16/15 18:00 93 07/16/15 17:49 100 35 I/O 07/16/15 07/16/15 07/16/15 07/17/15 07/17/15 07/17/15 07:00 15:00 23:00 07:00 15:00 23:00 Intake Total 528 ml 889 ml 525 ml 718 ml 802 ml Output Total 450 ml 651 ml 250 ml 425 ml 450 ml Balance 78 ml 238 ml 275 ml 293 ml 352 ml Tube Feeding 528 ml 709 ml 345 ml 598 ml 622 ml Tube Irrigant 180 ml 180 ml 120 ml 180 ml Output Urine Total 450 ml 650 ml 250 ml 425 ml 450 ml Stool Total 1 ml Chest Tube Drainage Total 0 ml 0 ml # Bowel Movements 1 0 1 Result Diagram: 07/16/157 07/16/15 0459 Objective Remarks GENERAL: MBMN male on Vent. SKIN: Warm and dry. HEAD: Normocephalic. EYES: No scleral icterus. No injection or drainage. NECK: Supple, trachea midline. No JVD or lymphadenopathy. has trach CARDIOVASCULAR: Regular rate and rhythm without murmurs, gallops, or rubs. RESPIRATORY: Breath sounds equal bilaterally. No accessory muscle use. GASTROINTESTINAL: Abdomen soft, non-tender, nondistended. PEG tube in place MUSCULOSKELETAL: No cyanosis, or edema. BACK: Nontender without obvious deformity. No CVA tenderness. A/P Assessment and Plan VDRF S/P Trach Parkinson's diasease Dementia UTI Small PTX--resolved PLAN: ABX Meropenm, Diflucan and Tobra nebs TF Add Ativan 0.[address] to suction T-Tube Severiano Ag MD Jul 17, 2015 17:40
[2015-07-17] MEDS: OLANZapine 2.5 MG TAB GT SCH (21:00)
[2015-07-17] MEDS: ENOXAPARIN SODIUM 30 MG/0.3 ML SYRINGE SQ SCH (21:24)
[2015-07-18] VITALS (16 sets, daily range): BP systolic 97–121; BP diastolic 54–65; PULSE 78–94; RESP 14–24; TEMP 97.6–98.7; O2SAT 95–100
[2015-07-18] MEDS: CHLORHEXIDINE GLUCONATE 2 % 1 PACK (2 CLOTHS) TOP SCH ×2 (04:00→21:01)
[2015-07-18] MEDS: RESP: SODIUM CHLORIDE 3% 4 ML NEB NEB SCH ×4 (04:12→21:13)
[2015-07-18] MEDS: CARBIDOPA/LEVODOPA 25 MG/100 MG TAB GT SCH ×3 (05:45→23:14)
[2015-07-18] MEDS: clonazePAM 1 MG TAB PO SCH ×3 (05:45→23:14)
--- NOTE | 2015-07-18 07:44 | HHI.CCPN ---
Subjective Remarks/Hospital Course 06/17: Pt is a 54 yr man with multiple medial problems including Parkinson's disease, advanced dementia, hyponatremia, anxiety, pneumonia, GERD, cognitive disorder, and multidrug resistant UTI- ESBL02/19/15 , who resides in a custodial. Pt by report was found by staff in custodial to be less alert and having respiratory difficultly and fevers. Pt was brought to ED adn placed on ventilator. His workup was inclusive of labs, chest xray and ct head and abd/pelvis. WBC 16.4, +UTI, lactic acid 4, troponin ,0.02, BUN/ cre 18/ 0.76. CT head 06/18/15: diffuse atrophy unchanged. No acute intracranial findings ct abd/ pelvis with IV contrast: 06/18/15 Conclusion: 1. Chronic nonspecific urinary bladder wall thickening. Bladder collapsed with Putnam catheter in place. 2.Chronic bilateral mid to lower zone groundglass opacity. 3. Nonobstructing left renal calculus. 4. Distended rectum Pt admitted and fluid and abx ordered. 06/18: Drowsy, easily arousable. On mechanical ventilation via tracheostomy. Tachypneic. Resting tremor noted. 06/19: Drowsy, arousable. On mechanical ventilation via tracheostomy. 06/20: Drowsy, arousable. Remains on mechanical ventilation via tracheostomy. We'll repeat blood cultures, UA and urine cultures. Fluconazole IV added in view of yeast in urine. 07/06: Reconsulted as patient return to the ventilator on a right ventricular due to tachypnea. Low-grade temperatures. Tolerating tube feeding. Extremity encephalopathic demented patient with difficult neurological examination. 07/07: Status post chest tube placement by IR for right pneumothorax 07/06. Afebrile. Tolerating tube feeds. Positive BM. Currently tachypneic on the ventilator. Does not appear to be any acute distress. 07/08: Afebrile. Tolerating tube feeding. He is comfortable currently on CPAP trials 11/10. Positive BM. 07/09: Afebrile. Tolerating tube feeding. Appears comfortable on T bar. Positive BM. 07/10: Afebrile. Eyes are open. Remained on T piece overnight. Tolerating tube feeding. 07/11: MAXIMUM TEMPERATURE 100. Currently 98.6. Eyes are open. On ACV overnight secondary to "tachypnea and sweating". Switching back to PSV trials today. Goal is T piece during daytime, CPAP at night. 07/12: No acute events overnight. On PSV 15/5 -attempt TP up to 6 hours today. No pneumothorax on chest x-ray 07/13: Placed back on full ventilator support for tachypnea. Otherwise clinically unchanged. No fever today 07/14: Patient was on T piece yesterday evening, placed back on PSV overnight, patient mechanical ventilation this morning. Patient appears to be struggling with mechanical ventilation. Patient placed back on PSV with improvement 07/15: Patient placed back on mechanical ventilation last evening due to respiratory rate. It was indicated patient was tachypnea can the 40s. Patient on mechanical ventilation this time with respiration rate mid 20s. Chest tube still in place without any output, chest x-ray still indicating resolution of pneumothorax. 07/16: Patient seen and examined today. Patient placed back on mechanical ventilation overnight due to respiratory rate. Even on mechanical ventilation patient has respiration rate in the 30s. Patient afebrile, blood pressure stable. Continue vent weaning Subjective 07/17: Patient seen and examined. Currently afebrile. Currently on CPAP 15/5 @ 40%. Patient is awake with open mouth resting in bed in no apparent acute distress. Tolerating tube feeding. 2 bowel movements. Objective - Vital Signs Date Time Temp Pulse Resp B/P Pulse Ox O2 Delivery O2 Flow Rate FiO2 07/18/15 06:00 81 07/18/15 04:12 100 35 07/18/15 04:00 98.7 24 100/59 07/17/15 16:15 Ventilator 07/16/15 10:38 7.00 I/O 07/17/15 07/17/15 07/18/15 08:00 16:00 00:00 Intake Total 718 ml 802 ml 485 ml Output Total 425 ml 450 ml 275 ml Balance 293 ml 352 ml 210 ml Result Diagram: 07/16/15 0457 07/16/15 0459 Other Results Imaging Last Impressions Chest X-Ray 07/17/15 1330 Signed Impressions: Service Date/Time: Friday, July 17, 2015 13:37 - CONCLUSION: Negative for pneumothorax. Milo Jackson MD FACR Tunnelled Chest Tube Removal 07/17/15 0000 Signed Impressions: Service Date/Time: Friday, July 17, 2015 00:00 - CONCLUSION: Uncomplicated chest tube removal. Erlin Mack MD Chest CT 07/11/15 0000 Signed Impressions: Service Date/Time: Saturday, July 11, 2015 09:49 - CONCLUSION: Scattered patchy densities significantly improved from previous study. Tiny anterior right basilar pneumothorax. Right-sided chest tube in good position. Néstor Matamoros MD Chest Tube Insertion 07/07/15 0000 Signed Impressions: Service Date/Time: Tuesday, July 07, 2015 17:14 - CONCLUSION: Uncomplicated right chest tube placement as above. Tai Taylor Jr., MD Head CT 06/18/151902 Signed Impressions: Service Date/Time: June 19:31 - CONCLUSION: Diffuse atrophy unchanged. No acute intracranial findings. Kush Briscoe MD Abdomen/Pelvis CT 06/18/151902 Signed Impressions: Service Date/Time: June 19:36 - CONCLUSION: 1. Chronic nonspecific urinary bladder wall thickening. Bladder collapsed with Putnam catheter in place. 2. Chronic bilateral mid to lower lung zone groundglass opacity. 3. Nonobstructing left renal calculus. 4. Distended rectum. Kush Briscoe MD Objective Remarks GENERAL: 54-year-old male, cachectic, currently resting in bed with open-mouth in no acute distress HEENT: NC/18. Facial features are symmetric. PERRLA. MMM dry and pink. Oropharynx without erythema NECK: No JVD/thrombus encephalopathy status post tracheostomy and dry and intact CARDIAC: RRR. S1/S2 are heard. No murmurs gallops or rubs. LUNGS: Clear to auscultation bilaterally. No wheeze, rhonchi or rales. No use of accessory muscles. ABDOMEN: S/NT/ND. Bowel sounds heard in all 4 quadrants. No organomegaly or masses. No guarding/rigidity/rebound. PEG tube noted, clean and dry EXTREMITIES: No significant peripheral edema, pulses are equal bilaterally. NEUROLOGY: Patient with significant contractures of the right lower extremity, upper extremities. Muscle wasting face, bilateral upper and lower extremities Date of Insertion: June 24, 2015 A/P Assessment and Plan Neuro/Psych: Toxic metabolic Encephalopathy - acute on chronic Parkinson's disease Cognitive disorder/Underlying dementia? CT head 06/18/15: - diffuse atrophy unchanged. No acute intracranial findings Continue Sinemet 25/100 3 times a day via PEG, Seroquel 50 mg twice a day, olanzapine 5 mg a night, Klonopin 2 mg every 8 hours, Paxil 20 daily and Neurontin 300 mg twice a day Continue Roxanol 5 mg every 4 hours when necessary pain and fentanyl patch 50 g every 3 days for pain management. Resp: Acute on chronic respiratory failure Chronic trach, acute on chronic resp failure, pneumonia Right pneumothorax status post pigtail catheter AC 16/500/5+/35%. Continue CPAP 20/06 in attempt to wean to TPs as tolerated. mechanical ventilation as needed, Duo nebs 4 times a day and when necessary albuterol Pulmonology/Dr. Ag following Status post right pigtail chest tube by IR 07/06, removed 07/16. Follow chest x- ray revealed no pneumothorax CT chest 07/10 revealed a very tiny right apical pneumothorax. Cardiac History of orthostasis History of CAD, HLP, Hypertension Continue Midodrine 5 mg twice a day Watch for hypotension troponin <0.02 GI: Malnutrition/protein calorie - moderate Status post PEG Hemorrhoids Gastroesophageal reflux disease - Tolerating Jevity 1.5 at 60 cc an hour - Currently Prevacid 30 mg per PEG tube daily for GERD - Current Colace/senna for bowel regimen. Positive bowel movements /metabolic: - Strict intake output, monitor and replete electrolytes, follow BUN/creatinine - Replace electrolytes as clinically indicated. Protocol ID: Candiduria ESBL positive Klebsiella/Pseudomonas pneumonia MRSA colonization - multidrug resistant UTI- ESBL02/19/15 , MRSA + 03/20/15 - Heena glabrata in urine 03/19/15 - Treated 15 days with tobramycin aerosols twice a day. - Recheck blood, sputum and urine cultures 07/06 no growth to date - 06/17 - blood cultures 2 - CONS/staph epi - 06/17 - sputum - ESBL positive Klebsiella/Pseudomonas - 06/17 - urine - C. glabrata/tropicalis - treated with Diflucan Endo: - If indicated sliding scale coverage Renal: Nonobstructing left renal calculus - Follow-up on BMP, stable Heme Anemia - Follow-up on CBC, stable MSK Bilateral lower extremity Contractures Stage II DU - Wound care evaluate and treat - Continue physical therapy Prophylaxis - GI - Prevacid - DVT - SCDs/Lovenox Critical Care: The total critical care time was 35 minutes. Time to perform other separately billable procedures was not included in the critical care time. Chad Oleary MD Jul 18, 2015 07:44
[2015-07-18] MEDS: PARoxetine HCL 20 MG TAB G-TUBE SCH (08:04)
[2015-07-18] MEDS: MIDODRINE 5 MG TAB G-TUBE SCH ×2 (08:04→23:14)
[2015-07-18] MEDS: DOCUSATE SODIUM 100 MG/10 ML UDC PO SCH ×2 (08:04→23:14)
[2015-07-18] MEDS: LANSOPRAZOLE SOLUTAB 30 MG TAB NG SCH (08:04)
[2015-07-18] MEDS: LACTOBACILLUS ACIDOPHILUS TAB PO SCH ×3 (08:04→18:00)
[2015-07-18] MEDS: GABAPENTIN 300 MG CAP G-TUBE SCH ×2 (08:04→23:14)
[2015-07-18] MEDS: SENNOSIDES SYRUP 8.8 MG/5 ML CUP PO SCH (08:04)
[2015-07-18] MEDS: SODIUM CHLORIDE 0.9% FLUSH 5 ML FLUSH IVF SCH ×2 (08:05→23:15)
[2015-07-18] MEDS: CHLORHEXIDINE 0.12% (ORAL KIT) 15 ML CUP MT SCH ×2 (08:12→23:13)
[2015-07-18] MEDS: ARTIFICIAL TEARS OPTH SOLN 15 ML BTL EACH EYE SCH ×3 (08:12→18:00)
[2015-07-18] MEDS: QUEtiapine FUMARATE 25 MG TAB G-TUBE SCH ×2 (09:40→23:14)
[2015-07-18] MEDS: RESP: ALBUTEROL 2.5 MG/IPRATROPIUM 0.5 MG NEB (SCH) NEB ×3 (12:44→21:13)
[2015-07-18] MEDS: OLANZapine 2.5 MG TAB GT SCH (21:00)
[2015-07-18] MEDS: ENOXAPARIN SODIUM 30 MG/0.3 ML SYRINGE SQ SCH (23:13)
[2015-07-19] VITALS (14 sets, daily range): BP systolic 87–118; BP diastolic 53–64; PULSE 76–88; RESP 17–28; TEMP 97.7–99.1; O2SAT 94–100
[2015-07-19] MEDS: RESP: SODIUM CHLORIDE 3% 4 ML NEB NEB SCH ×4 (03:55→21:12)
[2015-07-19] MEDS: RESP: ALBUTEROL 2.5 MG/IPRATROPIUM 0.5 MG NEB (SCH) NEB ×4 (03:55→21:12)
--- NOTE | 2015-07-19 04:45 | RADRPT ---
EXAM DATE/TIME: 07/19/2015 02:50 [facility] COMPARISON: CHEST SINGLE AP, July 17, 2015, 13:37. INDICATIONS : Shortness of breath, possible pulmonary disease. MEDICAL HISTORY : Hypertension. Gastroesophageal reflux disease. Diabetes mellitus type II. SURGICAL HISTORY : None. ENCOUNTER: Subsequent ACUITY: 3 weeks PAIN SCORE: Non-responsive. LOCATION: Bilateral chest FINDINGS: Single AP view of the chest. Tracheostomy tube remains in place. Lungs are clear. Cardiomediastinal s ilhouette within normal limits. No evidence of pleural effusion or pneumothorax. CONCLUSION: No significant change. Tracheostomy tube remains in place. Kush Briscoe MD on July 19, 2015 at 4:41 Board Certified Radiologist. This report was verified electronically.
[2015-07-19 05:25] LABS: AUTOMATED NEUTROPHIL # 5.2 TH/MM3 (1.8-7.7); BASOPHIL % 0.4 % (0.0-2.0); EOSINOPHIL # 0.5 TH/MM3 (0-0.4); EOSINOPHIL % 6.1 % (0.0-4.0); HEMATOCRIT 33.7 % (39.0-51.0); HEMO FLAGS DIFF FINAL; LYMPH % 23.6 % (9.0-44.0); MEAN CELL VOLUME 91.5 FL (80.0-100.0); MEAN CORPUSCULAR HEMOGLOBIN 30.6 PG (27.0-34.0); MEAN CORPUSCULAR HGB CONC 33.4 % (32.0-36.0); MONO % 7.7 % (0.0-8.0); NEUT % 62.2 % (16.0-70.0); PLATELET COUNT 183 TH/MM3 (150-450); RED BLOOD COUNT 3.68 MIL/MM3 (4.50-5.90); RED CELL DISTRIBUTION WIDTH 13.3 % (11.6-17.2); WHITE BLOOD COUNT 8.4 TH/MM3 (4.0-11.0)
[2015-07-19 05:37] LABS: APTT (PATIENT) 32.7 SEC (22.6-28.8); INTERNATIONAL NORMALIZED RATIO 1.1 RATIO; PROTHROMBIN TIME - PATIENT 10.7 SEC (9.8-11.4)
[2015-07-19 05:52] LABS: ALT (GPT) 10 U/L (12-78); ANION GAP 6 MEQ/L (5-15); AST (GOT) 18 U/L (15-37); BICARBONATE 33.9 MEQ/L (21.0-32.0); BLOOD UREA NITROGEN 26 MG/DL (7-18); CHLORIDE 104 MEQ/L (98-107); GLOMERULAR FILTRATION RATE 134 ML/MIN (>89); MAGNESIUM 2.1 MG/DL (1.5-2.5); SODIUM (NA) 144 MEQ/L (136-145)
[2015-07-19] MEDS: CARBIDOPA/LEVODOPA 25 MG/100 MG TAB GT SCH ×3 (05:52→21:59)
[2015-07-19] MEDS: clonazePAM 1 MG TAB PO SCH ×3 (05:52→21:59)
[2015-07-19 05:55] LABS: ALKALINE PHOSPHATASE 78 U/L (45-117); TOTAL BILIRUBIN ADULT 0.4 MG/DL (0.2-1.0)
[2015-07-19] MEDS: CHLORHEXIDINE 0.12% (ORAL KIT) 15 ML CUP MT SCH ×2 (07:31→21:59)
[2015-07-19] MEDS: LACTOBACILLUS ACIDOPHILUS TAB PO SCH ×3 (07:31→18:13)
[2015-07-19] MEDS: PARoxetine HCL 20 MG TAB G-TUBE SCH (07:31)
[2015-07-19] MEDS: DOCUSATE SODIUM 100 MG/10 ML UDC PO SCH ×2 (07:32→22:00)
[2015-07-19] MEDS: SODIUM CHLORIDE 0.9% FLUSH 5 ML FLUSH IVF SCH ×2 (07:32→22:01)
[2015-07-19] MEDS: GABAPENTIN 300 MG CAP G-TUBE SCH ×2 (07:32→21:59)
[2015-07-19] MEDS: SENNOSIDES SYRUP 8.8 MG/5 ML CUP PO SCH (07:32)
[2015-07-19] MEDS: LANSOPRAZOLE SOLUTAB 30 MG TAB NG SCH (07:32)
[2015-07-19] MEDS: MIDODRINE 5 MG TAB G-TUBE SCH ×2 (07:32→21:59)
[2015-07-19] MEDS: QUEtiapine FUMARATE 25 MG TAB G-TUBE SCH ×2 (07:32→22:00)
[2015-07-19] MEDS: ARTIFICIAL TEARS OPTH SOLN 15 ML BTL EACH EYE SCH ×3 (07:40→18:14)
[2015-07-19] MEDS: MORPHINE SULFATE ORAL SOLN 10 MG/0.5 ML SYRINGE PO PRN (07:53)
--- NOTE | 2015-07-19 08:16 | HHI.CCPN ---
Subjective Remarks/Hospital Course 06/17: Pt is a 54 yr man with multiple medial problems including Parkinson's disease, advanced dementia, hyponatremia, anxiety, pneumonia, GERD, cognitive disorder, and multidrug resistant UTI- ESBL02/19/15 , who resides in a penitentiary. Pt by report was found by staff in penitentiary to be less alert and having respiratory difficultly and fevers. Pt was brought to ED adn placed on ventilator. His workup was inclusive of labs, chest xray and ct head and abd/pelvis. WBC 16.4, +UTI, lactic acid 4, troponin ,0.02, BUN/ cre 18/ 0.76. CT head 06/18/15: diffuse atrophy unchanged. No acute intracranial findings ct abd/ pelvis with IV contrast: 06/18/15 Conclusion: 1. Chronic nonspecific urinary bladder wall thickening. Bladder collapsed with Putnam catheter in place. 2.Chronic bilateral mid to lower zone groundglass opacity. 3. Nonobstructing left renal calculus. 4. Distended rectum Pt admitted and fluid and abx ordered. 06/18: Drowsy, easily arousable. On mechanical ventilation via tracheostomy. Tachypneic. Resting tremor noted. 06/19: Drowsy, arousable. On mechanical ventilation via tracheostomy. 06/20: Drowsy, arousable. Remains on mechanical ventilation via tracheostomy. We'll repeat blood cultures, UA and urine cultures. Fluconazole IV added in view of yeast in urine. 07/06: Reconsulted as patient return to the ventilator on a right ventricular due to tachypnea. Low-grade temperatures. Tolerating tube feeding. Extremity encephalopathic demented patient with difficult neurological examination. 07/07: Status post chest tube placement by IR for right pneumothorax 07/06. Afebrile. Tolerating tube feeds. Positive BM. Currently tachypneic on the ventilator. Does not appear to be any acute distress. 07/08: Afebrile. Tolerating tube feeding. He is comfortable currently on CPAP trials 11/10. Positive BM. 07/09: Afebrile. Tolerating tube feeding. Appears comfortable on T bar. Positive BM. 07/10: Afebrile. Eyes are open. Remained on T piece overnight. Tolerating tube feeding. 07/11: MAXIMUM TEMPERATURE 100. Currently 98.6. Eyes are open. On ACV overnight secondary to "tachypnea and sweating". Switching back to PSV trials today. Goal is T piece during daytime, CPAP at night. 07/12: No acute events overnight. On PSV 15/5 -attempt TP up to 6 hours today. No pneumothorax on chest x-ray 07/13: Placed back on full ventilator support for tachypnea. Otherwise clinically unchanged. No fever today 07/14: Patient was on T piece yesterday evening, placed back on PSV overnight, patient mechanical ventilation this morning. Patient appears to be struggling with mechanical ventilation. Patient placed back on PSV with improvement 07/15: Patient placed back on mechanical ventilation last evening due to respiratory rate. It was indicated patient was tachypnea can the 40s. Patient on mechanical ventilation this time with respiration rate mid 20s. Chest tube still in place without any output, chest x-ray still indicating resolution of pneumothorax. 07/16: Patient seen and examined today. Patient placed back on mechanical ventilation overnight due to respiratory rate. Even on mechanical ventilation patient has respiration rate in the 30s. Patient afebrile, blood pressure stable. Continue vent weaning 07/17: Patient seen and examined. Currently afebrile. Currently on CPAP 15/5 @ 40%. Patient is awake with open mouth resting in bed in no apparent acute distress. Tolerating tube feeding. 2 bowel movements. Subjective 07/18: No neurological changes. Afebrile. 2 bowel moments. Tolerating tube feeding. We'll attempt TP trials today. On CPAP since 07/15 Objective - Vital Signs Date Time Temp Pulse Resp B/P Pulse Ox O2 Delivery O2 Flow Rate FiO2 07/19/15 04:25 99 35 07/19/15 04:00 97.7 76 25 118/57 07/17/15 16:15 Ventilator 07/16/15 10:38 7.00 I/O 07/18/15 07/18/15 07/19/15 08:00 16:00 00:00 Intake Total 562 ml 789 ml 487 ml Output Total 400 ml 350 ml 425 ml Balance 162 ml 439 ml 62 ml Result Diagram: 07/19/15 0449 07/19/15 0449 Other Results Imaging Last Impressions Chest X-Ray 07/19/15 0600 Signed Impressions: Service Date/Time: Sunday, July 19, 2015 02:50 - CONCLUSION: No significant change. Tracheostomy tube remains in place. Kush Briscoe MD Tunnelled Chest Tube Removal 07/17/15 Signed Impressions: Service Date/Time: Friday, July 17, 2015 00:00 - CONCLUSION: Uncomplicated chest tube removal. Erlin Mack MD Chest CT 07/11/15 Signed Impressions: Service Date/Time: Saturday, July 11, 2015 09:49 - CONCLUSION: Scattered patchy densities significantly improved from previous study. Tiny anterior right basilar pneumothorax. Right-sided chest tube in good position. Néstor Matamoros MD Chest Tube Insertion 07/07/15 Signed Impressions: Service Date/Time: Tuesday, July 07, 2015 17:14 - CONCLUSION: Uncomplicated right chest tube placement as above. Tai Taylor Jr., MD Head CT 06/18/151902 Signed Impressions: Service Date/Time: , June 18, 2015 19:31 - CONCLUSION: Diffuse atrophy unchanged. No acute intracranial findings. Kush Briscoe MD Abdomen/Pelvis CT 06/18/151902 Signed Impressions: Service Date/Time: June 19:36 - CONCLUSION: 1. Chronic nonspecific urinary bladder wall thickening. Bladder collapsed with Putnam catheter in place. 2. Chronic bilateral mid to lower lung zone groundglass opacity. 3. Nonobstructing left renal calculus. 4. Distended rectum. Kush Briscoe MD Objective Remarks GENERAL: 54-year-old male, cachectic, currently resting in bed with open-mouth in no acute distress HEENT: NC/18. Facial features are symmetric. PERRLA. MMM dry and pink. Oropharynx without erythema or thrush NECK: No JVD/thrombus encephalopathy status post tracheostomy and dry and intact CARDIAC: RRR. S1/S2. No S4.. No murmurs, clicks gallops or rubs. LUNGS: Clear to auscultation bilaterally. No wheeze, rhonchi or rales. No use of accessory muscles. ABDOMEN: S/NT/ND. Bowel sounds heard in all 4 quadrants. No organomegaly or masses. No guarding/rigidity/rebound. PEG tube noted, clean and dry EXTREMITIES: No significant peripheral edema, pulses are equal bilaterally. NEUROLOGY: Patient with significant contractures of the right lower extremity, upper extremities. Muscle wasting face, bilateral upper and lower extremities Urinary Catheter: Yes Assessment to: Continue Putnam insert reason: Prolonged Immobilization Date of Insertion: June 24, 2015 Vascular Central Line Catheter: No Assessment to: Continue A/P Assessment and Plan Neuro/Psych: Toxic metabolic Encephalopathy - acute on chronic Parkinson's disease Cognitive disorder/Underlying dementia? Depression CT head 06/18/15: - diffuse atrophy unchanged. No acute intracranial findings Continue Sinemet 25/100 3 times a day via PEG, Seroquel 50 mg twice a day, olanzapine 5 mg a night, Klonopin 2 mg every 8 hours, Paxil 20 daily and Neurontin 300 mg twice a day. Note these medications have been slowly titrated up since admission Continue Roxanol 5 mg every 4 hours when necessary pain and fentanyl patch 50 g every 3 days for pain management. Resp: Acute on chronic respiratory failure Chronic trach, acute on chronic resp failure, pneumonia Right pneumothorax status post pigtail catheter Continue CPAP 20/06 in attempt to wean to TPs as tolerated. Written for TPs trials for 2 hours 3 today --mechanical ventilation as needed Duo nebs 4 times a day and when necessary albuterol Pulmonology/Dr. Ag following Status post right pigtail chest tube by IR 07/06, removed 07/16. Follow chest x- ray revealed no pneumothorax CT chest 07/10 revealed a very tiny right apical pneumothorax. Cardiac History of orthostasis History of CAD, HLP, Hypertension Continue Midodrine 5 mg twice a day Watch for hypotension troponin <0.02 GI: Malnutrition/protein calorie - moderate Status post PEG Hemorrhoids Gastroesophageal reflux disease - Tolerating Jevity 1.5 at 60 cc an hour - Currently Prevacid 30 mg per PEG tube daily for GERD - Current Colace/senna for bowel regimen. Positive bowel movements 2 /metabolic: - Strict intake output, monitor and replete electrolytes, follow BUN/creatinine - Replace electrolytes as clinically indicated per electrolyte protocol ID: Candiduria ESBL positive Klebsiella/Pseudomonas pneumonia MRSA colonization - multidrug resistant UTI- ESBL02/19/15 , MRSA + 03/20/15 - Heena glabrata in urine 03/19/15 - Treated 15 days with tobramycin aerosols twice a day. - Recheck blood, sputum and urine cultures 07/06 no growth to date - 06/17 - blood cultures 2 - CONS/staph epi - 06/17 - sputum - ESBL positive Klebsiella/Pseudomonas - 5/12 - urine - C. glabrata/tropicalis - treated with Diflucan Endo: - If indicated sliding scale coverage Renal: Nonobstructing left renal calculus - Follow-up on BMP, stable Heme Anemia - Follow-up on CBC, stable MSK Bilateral lower extremity Contractures Stage II DU - Wound care evaluate and treat - Continue physical therapy Prophylaxis - GI - Prevacid - DVT - SCDs/Lovenox Critical Care: The total care time was 35 minutes. Time to perform other separately billable procedures was not included in the critical care time. No labs or x-rays ordered for Monday. 07/19. Holiday unless clinically indicated. Chad Oleary MD Jul 19, 2015 08:16
[2015-07-19] MEDS: CHLORHEXIDINE GLUCONATE 2 % 1 PACK (2 CLOTHS) TOP SCH (20:43)
[2015-07-19] MEDS: OLANZapine 2.5 MG TAB GT SCH (21:00)
[2015-07-19] MEDS: ENOXAPARIN SODIUM 30 MG/0.3 ML SYRINGE SQ SCH (22:01)
[2015-07-20] VITALS (19 sets, daily range): BP systolic 88–127; BP diastolic 52–81; PULSE 79–99; RESP 22–29; TEMP 97.7–98.8; O2SAT 96–100
[2015-07-20] MEDS: RESP: ALBUTEROL 2.5 MG/IPRATROPIUM 0.5 MG NEB (SCH) NEB ×4 (03:33→22:02)
[2015-07-20] MEDS: RESP: SODIUM CHLORIDE 3% 4 ML NEB NEB SCH ×4 (03:34→22:02)
[2015-07-20] MEDS: clonazePAM 1 MG TAB PO SCH ×3 (05:38→22:57)
[2015-07-20] MEDS: CARBIDOPA/LEVODOPA 25 MG/100 MG TAB GT SCH ×3 (05:38→22:56)
--- NOTE | 2015-07-20 07:30 | HHI.CCPN ---
Subjective Remarks/Hospital Course 06/17: Pt is a 54 yr man with multiple medial problems including Parkinson's disease, advanced dementia, hyponatremia, anxiety, pneumonia, GERD, cognitive disorder, and multidrug resistant UTI- ESBL02/19/15 , who [facility] in a [facility]. Pt by report was found by staff in [facility] to be less alert and having respiratory difficultly and fevers. Pt was brought to ED adn placed on ventilator. His workup was inclusive of labs, chest xray and ct head and abd/pelvis. WBC 16.4, +UTI, lactic acid 4, troponin ,0.02, BUN/ cre 18/ 0.76. CT head 06/18/15: diffuse atrophy unchanged. No acute intracranial findings ct abd/ pelvis with IV contrast: 06/18/15 Conclusion: 1. Chronic nonspecific urinary bladder wall thickening. Bladder collapsed with Putnam catheter in place. 2.Chronic bilateral mid to lower zone groundglass opacity. 3. Nonobstructing left renal calculus. 4. Distended rectum Pt admitted and fluid and abx ordered. 06/18: Drowsy, easily arousable. On mechanical ventilation via tracheostomy. Tachypneic. Resting tremor noted. 06/19: Drowsy, arousable. On mechanical ventilation via tracheostomy. 06/20: Drowsy, arousable. Remains on mechanical ventilation via tracheostomy. We'll repeat blood cultures, UA and urine cultures. Fluconazole IV added in view of yeast in urine. 07/06: Reconsulted as patient return to the ventilator on a right ventricular due to tachypnea. Low-grade temperatures. Tolerating tube feeding. Extremity encephalopathic demented patient with difficult neurological examination. 07/07: Status post chest tube placement by IR for right pneumothorax 07/06. Afebrile. Tolerating tube feeds. Positive BM. Currently tachypneic on the ventilator. Does not appear to be any acute distress. 07/08: Afebrile. Tolerating tube feeding. He is comfortable currently on CPAP trials 11/10. Positive BM. 07/09: Afebrile. Tolerating tube feeding. Appears comfortable on T bar. Positive BM. 07/10: Afebrile. Eyes are open. Remained on T piece overnight. Tolerating tube feeding. 07/11: MAXIMUM TEMPERATURE 100. Currently 98.6. Eyes are open. On ACV overnight secondary to "tachypnea and sweating". Switching back to PSV trials today. Goal is T piece during daytime, CPAP at night. 07/12: No acute events overnight. On PSV 15/5 -attempt TP up to 6 hours today. No pneumothorax on chest x-ray 07/13: Placed back on full ventilator support for tachypnea. Otherwise clinically unchanged. No fever today 07/14: Patient was on T piece yesterday evening, placed back on PSV overnight, patient mechanical ventilation this morning. Patient appears to be struggling with mechanical ventilation. Patient placed back on PSV with improvement 07/15: Patient placed back on mechanical ventilation last evening due to respiratory rate. It was indicated patient was tachypnea can the 40s. Patient on mechanical ventilation this time with respiration rate mid 20s. Chest tube still in place without any output, chest x-ray still indicating resolution of pneumothorax. 07/16: Patient seen and examined today. Patient placed back on mechanical ventilation overnight due to respiratory rate. Even on mechanical ventilation patient has respiration rate in the 30s. Patient afebrile, blood pressure stable. Continue vent weaning 07/17: Patient seen and examined. Currently afebrile. Currently on CPAP 15/5 @ 40%. Patient is awake with open mouth resting in bed in no apparent acute distress. Tolerating tube feeding. 2 bowel movements. Subjective 07/18: No neurological changes. Afebrile. 2 bowel moments. Tolerating tube feeding. We'll attempt TP trials today. On CPAP since 07/15 07/19 No events overnight. On CPAP with PS: 10, PEEP: 5 and FIO2 35%. Afebrile. On no sedation. Objective - Vital Signs Date Time Temp Pulse Resp B/P Pulse Ox O2 Delivery O2 Flow Rate FiO2 07/20/15 06:00 88 07/20/15 04:07 100 35 07/20/15 04:00 98.8 29 107/56 07/19/15 08:46 T-piece 07/16/15 10:38 7.00 I/O 07/19/15 07/19/15 07/19/15 07:59 15:59 23:59 Intake Total 352 ml 535 ml 742 ml Output Total 250 ml 450 ml 400 ml Balance 102 ml 85 ml 342 ml Result Diagram: 07/19/15 0449 07/19/15 0449 Other Results Imaging Last Impressions Chest X-Ray 07/19/15 0600 Signed Impressions: Service Date/Time: Sunday, July 19, 2015 02:50 - CONCLUSION: No significant change. Tracheostomy tube remains in place. Kush Briscoe MD Tunnelled Chest Tube Removal 07/17/15 0000 Signed Impressions: Service Date/Time: Friday, July 17, 2015 00:00 - CONCLUSION: Uncomplicated chest tube removal. Erlin Mack MD Chest CT 07/11/15 0000 Signed Impressions: Service Date/Time: Saturday, July 11, 2015 09:49 - CONCLUSION: Scattered patchy densities significantly improved from previous study. Tiny anterior right basilar pneumothorax. Right-sided chest tube in good position. Néstor Matamoros MD Chest Tube Insertion 07/07/15 0000 Signed Impressions: Service Date/Time: Tuesday, July 07, 2015 17:14 - CONCLUSION: Uncomplicated right chest tube placement as above. Tai Taylor Jr., MD Head CT 06/18/151902 Signed Impressions: Service Date/Time: June 19:31 - CONCLUSION: Diffuse atrophy unchanged. No acute intracranial findings. Kush Briscoe MD Abdomen/Pelvis CT 06/18/151902 Signed Impressions: Service Date/Time: June 19:36 - CONCLUSION: 1. Chronic nonspecific urinary bladder wall thickening. Bladder collapsed with Putnam catheter in place. 2. Chronic bilateral mid to lower lung zone groundglass opacity. 3. Nonobstructing left renal calculus. 4. Distended rectum. Kush Briscoe MD Objective Remarks GENERAL: 54-year-old male, cachectic, currently resting in bed with open-mouth in no acute distress HEENT: NC/18. Facial features are symmetric. PERRLA. MMM dry and pink. Oropharynx without erythema or thrush NECK: No JVD/thrombus encephalopathy status post tracheostomy and dry and intact CARDIAC: RRR. S1/S2. No S4.. No murmurs, clicks gallops or rubs. LUNGS: Clear to auscultation bilaterally. No wheeze, rhonchi or rales. No use of accessory muscles. ABDOMEN: S/NT/ND. Bowel sounds heard in all 4 quadrants. No organomegaly or masses. No guarding/rigidity/rebound. PEG tube noted, clean and dry EXTREMITIES: No significant peripheral edema, pulses are equal bilaterally. NEUROLOGY: Patient with significant contractures of the right lower extremity, upper extremities. Muscle wasting face, bilateral upper and lower extremities Date of Insertion: June 24, 2015 A/P Assessment and Plan Neuro/Psych: Toxic metabolic Encephalopathy - acute on chronic Parkinson's disease Cognitive disorder/Underlying dementia? Depression CT head 06/18/15: - diffuse atrophy unchanged. No acute intracranial findings Continue Sinemet 25/100 3 times a day via PEG, Seroquel 50 mg twice a day, olanzapine 5 mg a night, Klonopin 2 mg every 8 hours, Paxil 20 daily and Neurontin 300 mg twice a day. Note these medications have been slowly titrated up since admission Continue Roxanol 5 mg every 4 hours when necessary pain and fentanyl patch 50 g every 3 days for pain management. Resp: Acute on chronic respiratory failure Chronic trach, acute on chronic resp failure, pneumonia Right pneumothorax status post pigtail catheter Continue CPAP 15/5 in attempt to wean to TPs as tolerated. Pulm toilet, trach care Duo nebs 4 times a day and when necessary albuterol Pulmonology/Dr. Ag following Status post right pigtail chest tube by IR 07/06, removed 07/16. Follow chest x- ray revealed no pneumothorax Cardiac History of orthostasis History of CAD, HLP, Hypertension Continue Midodrine 5 mg twice a day Monitor HR and BP keep MAP>65mmHg GI: Malnutrition/protein calorie - moderate Status post PEG Hemorrhoids Gastroesophageal reflux disease - Tolerating Jevity 1.5 at 60 cc an hour - Currently Prevacid 30 mg per PEG tube daily for GERD - Current Colace/senna for bowel regimen. /metabolic: Nonobstructing left renal calculus - Strict intake output, monitor and replete electrolytes, follow BUN/creatinine - Replace electrolytes as clinically indicated per electrolyte protocol ID: Candiduria ESBL positive Klebsiella/Pseudomonas pneumonia MRSA colonization - multidrug resistant UTI- ESBL02/19/15 , MRSA + 03/20/15 - Heena glabrata in urine 03/19/15 - Treated 15 days with tobramycin aerosols twice a day. - Recheck blood, sputum and urine cultures 07/06 no growth - 06/17 - blood cultures 2 - CONS/staph epi - 06/17 - sputum - ESBL positive Klebsiella/Pseudomonas - 06/17 - urine - C. glabrata/tropicalis - treated with Diflucan --Off abx monitor for signs of infections ( Fever, WBC) Endo: --SSI if needed for glycemic control Heme Anemia - Monitor CBC MSK Bilateral lower extremity Contractures Stage II DU - Wound care evaluate and treat - Continue physical therapy Prophylaxis - GI - Prevacid - DVT - SCDs/Lovenox Critical Care: The total care time was 35 minutes. Time to perform other separately billable procedures was not included in the critical care time. Antonio Carr MD Jul 20, 2015 07:30
[2015-07-20] MEDS: REMOVE OLD PATCH TD SCH (08:00)
[2015-07-20] MEDS: CHLORHEXIDINE 0.12% (ORAL KIT) 15 ML CUP MT SCH ×2 (08:00→23:05)
[2015-07-20] MEDS: LACTOBACILLUS ACIDOPHILUS TAB PO SCH ×3 (08:50→18:00)
[2015-07-20] MEDS: GABAPENTIN 300 MG CAP G-TUBE SCH ×2 (08:50→22:57)
[2015-07-20] MEDS: LANSOPRAZOLE SOLUTAB 30 MG TAB NG SCH (08:50)
[2015-07-20] MEDS: fentaNYL 50 MCG/HR PATCH TD SCH (08:50)
[2015-07-20] MEDS: SENNOSIDES SYRUP 8.8 MG/5 ML CUP PO SCH (08:51)
[2015-07-20] MEDS: MIDODRINE 5 MG TAB G-TUBE SCH ×2 (08:51→22:57)
[2015-07-20] MEDS: DOCUSATE SODIUM 100 MG/10 ML UDC PO SCH ×2 (08:51→21:00)
[2015-07-20] MEDS: SODIUM CHLORIDE 0.9% FLUSH 5 ML FLUSH IVF SCH ×2 (08:51→23:06)
[2015-07-20] MEDS: ARTIFICIAL TEARS OPTH SOLN 15 ML BTL EACH EYE SCH ×3 (08:51→18:00)
[2015-07-20] MEDS: PARoxetine HCL 20 MG TAB G-TUBE SCH (08:51)
[2015-07-20] MEDS: QUEtiapine FUMARATE 25 MG TAB G-TUBE SCH ×2 (08:58→22:57)
--- NOTE | 2015-07-20 17:07 | HHI.PR ---
Subjective Remarks 54 YOWM with ChRF,Trach, multiple uti No fever Gets anxious On Fentanyl patch tolerates T-Tube chest tube removed Objective Vital Signs Vital Signs Date Time Temp Pulse Resp B/P Pulse Ox O2 Delivery O2 Flow Rate FiO2 07/20/15 16:50 97 35 07/20/15 14:00 80 07/20/15 13:21 99 T-piece 40 07/20/15 12:00 98.0 83 100/57 07/20/15 12:00 83 07/20/15 12:00 35 07/20/15 10:00 88 07/20/15 09:08 100 35 07/20/15 08:00 88 07/20/15 08:00 98.7 84 24 127/57 100 07/20/15 08:00 35 07/20/15 07:24 99 35 07/20/15 06:00 88 07/20/15 04:07 100 35 07/20/15 04:00 83 07/20/15 04:00 35 07/20/15 04:00 98.8 83 29 107/56 100 07/20/15 02:00 79 07/20/15 01:11 100 35 07/20/15 00:00 35 07/20/15 00:00 98.6 88 26 88/52 97 07/20/15 00:00 88 07/19/15 22:35 97 35 07/19/15 22:00 87 07/19/15 20:00 35 07/19/15 20:00 99.1 88 28 107/64 100 07/19/15 20:00 88 07/19/15 19:38 100 35 I/O 07/19/15 07/19/15 07/19/15 07/20/15 07/20/15 07/20/15 07:00 15:00 23:00 07:00 15:00 23:00 Intake Total 352 ml 535 ml 742 ml 592 ml 662 ml Output Total 250 ml 450 ml 400 ml 425 ml 400 ml Balance 102 ml 85 ml 342 ml 167 ml 262 ml Tube Feeding 232 ml 435 ml 542 ml 472 ml 562 ml Other 120 ml 100 ml 200 ml 120 ml 100 ml Output Urine Total 250 ml 450 ml 400 ml 425 ml 400 ml Tube Feeding Residual Discard 0 ml 0 ml # Bowel Movements 1 1 1 2 0 Result Diagram: 07/19/159 07/19/15 0449 Objective Remarks GENERAL: MBMN male on Vent. SKIN: Warm and dry. HEAD: Normocephalic. EYES: No scleral icterus. No injection or drainage. NECK: Supple, trachea midline. No JVD or lymphadenopathy. has trach CARDIOVASCULAR: Regular rate and rhythm without murmurs, gallops, or rubs. RESPIRATORY: Breath sounds equal bilaterally. No accessory muscle use. GASTROINTESTINAL: Abdomen soft, non-tender, nondistended. PEG tube in place MUSCULOSKELETAL: No cyanosis, or edema. BACK: Nontender without obvious deformity. No CVA tenderness. A/P Assessment and Plan VDRF S/P Trach Parkinson's diasease Dementia UTI Small PTX--resolved PLAN: ABX Meropenm, Diflucan and Tobra nebs TF Add Ativan 0.5 mg tid T-Tube Severiano Ag MD Jul 20, 2015 17:07
[2015-07-20] MEDS: ENOXAPARIN SODIUM 30 MG/0.3 ML SYRINGE SQ SCH (22:57)
[2015-07-20] MEDS: OLANZapine 2.5 MG TAB GT SCH (22:59)
[2015-07-21] VITALS (19 sets, daily range): BP systolic 95–126; BP diastolic 56–77; PULSE 91–98; RESP 22–24; TEMP 97.6–99; O2SAT 96–99
[2015-07-21] MEDS: RESP: SODIUM CHLORIDE 3% 4 ML NEB NEB SCH ×4 (04:13→21:15)
[2015-07-21] MEDS: CHLORHEXIDINE GLUCONATE 2 % 1 PACK (2 CLOTHS) TOP SCH (04:57)
[2015-07-21 05:06] LABS: AUTOMATED NEUTROPHIL # 6.8 TH/MM3 (1.8-7.7); BASOPHIL # 0.1 TH/MM3 (0-0.2); BASOPHIL % 0.7 % (0.0-2.0); EOSINOPHIL # 0.6 TH/MM3 (0-0.4); EOSINOPHIL % 5.6 % (0.0-4.0); LYMPH % 19.7 % (9.0-44.0); MEAN CELL VOLUME 89.7 FL (80.0-100.0); MEAN CORPUSCULAR HEMOGLOBIN 29.1 PG (27.0-34.0); MEAN CORPUSCULAR HGB CONC 32.5 % (32.0-36.0); MONO % 6.8 % (0.0-8.0); NEUT % 67.2 % (16.0-70.0); PLATELET COUNT 156 TH/MM3 (150-450); RED BLOOD COUNT 3.91 MIL/MM3 (4.50-5.90); RED CELL DISTRIBUTION WIDTH 13.3 % (11.6-17.2); WHITE BLOOD COUNT 10.2 TH/MM3 (4.0-11.0)
[2015-07-21 05:08] LABS: HEMO FLAGS DIFF FINAL
[2015-07-21] MEDS: CARBIDOPA/LEVODOPA 25 MG/100 MG TAB GT SCH ×3 (05:14→21:48)
[2015-07-21] MEDS: clonazePAM 1 MG TAB PO SCH ×3 (05:15→21:47)
[2015-07-21 05:30] LABS: BICARBONATE 36.5 MEQ/L (21.0-32.0); MAGNESIUM 2.2 MG/DL (1.5-2.5); POTASSIUM 4.1 MEQ/L (3.5-5.1)
--- NOTE | 2015-07-21 08:07 | HHI.CCPN ---
Subjective Remarks/Hospital Course 06/17: Pt is a 54 yr man with multiple medial problems including Parkinson's disease, advanced dementia, hyponatremia, anxiety, pneumonia, GERD, cognitive disorder, and multidrug resistant UTI- ESBL02/19/15 , who [facility]. Pt by report was found by staff in prison to be less alert and having respiratory difficultly and fevers. Pt was brought to ED adn placed on ventilator. His workup was inclusive of labs, chest xray and ct head and abd/pelvis. WBC 16.4, +UTI, lactic acid 4, troponin ,0.02, BUN/ cre 18/ 0.76. CT head 06/18/15: diffuse atrophy unchanged. No acute intracranial findings ct abd/ pelvis with IV contrast: 06/18/15 Conclusion: 1. Chronic nonspecific urinary bladder wall thickening. Bladder collapsed with Putnam catheter in place. 2.Chronic bilateral mid to lower zone groundglass opacity. 3. Nonobstructing left renal calculus. 4. Distended rectum Pt admitted and fluid and abx ordered. 06/18: Drowsy, easily arousable. On mechanical ventilation via tracheostomy. Tachypneic. Resting tremor noted. 06/19: Drowsy, arousable. On mechanical ventilation via tracheostomy. 06/20: Drowsy, arousable. Remains on mechanical ventilation via tracheostomy. We'll repeat blood cultures, UA and urine cultures. Fluconazole IV added in view of yeast in urine. 07/06: Reconsulted as patient return to the ventilator on a right ventricular due to tachypnea. Low-grade temperatures. Tolerating tube feeding. Extremity encephalopathic demented patient with difficult neurological examination. 07/07: Status post chest tube placement by IR for right pneumothorax 07/06. Afebrile. Tolerating tube feeds. Positive BM. Currently tachypneic on the ventilator. Does not appear to be any acute distress. 07/08: Afebrile. Tolerating tube feeding. He is comfortable currently on CPAP trials 11/10. Positive BM. 07/09: Afebrile. Tolerating tube feeding. Appears comfortable on T bar. Positive BM. 07/10: Afebrile. Eyes are open. Remained on T piece overnight. Tolerating tube feeding. 07/11: MAXIMUM TEMPERATURE 100. Currently 98.6. Eyes are open. On ACV overnight secondary to "tachypnea and sweating". Switching back to PSV trials today. Goal is T piece during daytime, CPAP at night. 07/12: No acute events overnight. On PSV 15/5 -attempt TP up to 6 hours today. No pneumothorax on chest x-ray 07/13: Placed back on full ventilator support for tachypnea. Otherwise clinically unchanged. No fever today 07/14: Patient was on T piece yesterday evening, placed back on PSV overnight, patient mechanical ventilation this morning. Patient appears to be struggling with mechanical ventilation. Patient placed back on PSV with improvement 07/15: Patient placed back on mechanical ventilation last evening due to respiratory rate. It was indicated patient was tachypnea can the 40s. Patient on mechanical ventilation this time with respiration rate mid 20s. Chest tube still in place without any output, chest x-ray still indicating resolution of pneumothorax. 07/16: Patient seen and examined today. Patient placed back on mechanical ventilation overnight due to respiratory rate. Even on mechanical ventilation patient has respiration rate in the 30s. Patient afebrile, blood pressure stable. Continue vent weaning 07/17: Patient seen and examined. Currently afebrile. Currently on CPAP 15/5 @ 40%. Patient is awake with open mouth resting in bed in no apparent acute distress. Tolerating tube feeding. 2 bowel movements. Subjective 07/18: No neurological changes. Afebrile. 2 bowel moments. Tolerating tube feeding. We'll attempt TP trials today. On CPAP since 07/15 07/19 No events overnight. On CPAP with PS: 10, PEEP: 5 and FIO2 35%. Afebrile. On no sedation. 07/20 No events overnight. Tolerating CPAP. Afebrile. Objective - Vital Signs Date Time Temp Pulse Resp B/P Pulse Ox O2 Delivery O2 Flow Rate FiO2 07/21/15 07:46 98 35 07/21/15 06:00 92 07/21/15 04:00 98.8 23 122/68 07/20/15 13:21 T-piece I/O 07/20/15 07/20/15 07/20/15 07:59 15:59 23:59 Intake Total 592 ml 662 ml 690 ml Output Total 425 ml 400 ml 950 ml Balance 167 ml 262 ml -260 ml Result Diagram: 07/21/15 0338 07/21/15 0338 Other Results Laboratory Tests Test 07/21/15 03:38 White Blood Count 10.2 TH/MM3 Red Blood Count 3.91 MIL/MM3 Hemoglobin 11.4 GM/DL Hematocrit 35.0 % Mean Corpuscular Volume 89.7 FL Mean Corpuscular Hemoglobin 29.1 PG Mean Corpuscular Hemoglobin 32.5 % Concent Red Cell Distribution Width 13.3 % Platelet Count 156 TH/MM3 Mean Platelet Volume 10.8 FL Neutrophils (%) (Auto) 67.2 % Lymphocytes (%) (Auto) 19.7 % Monocytes (%) (Auto) 6.8 % Eosinophils (%) (Auto) 5.6 % Basophils (%) (Auto) 0.7 % Neutrophils # (Auto) 6.8 TH/MM3 Lymphocytes # (Auto) 2.0 TH/MM3 Monocytes # (Auto) 0.7 TH/MM3 Eosinophils # (Auto) 0.6 TH/MM3 Basophils # (Auto) 0.1 TH/MM3 CBC Comment DIFF FINAL Differential Comment Sodium Level 149 MEQ/L Potassium Level 4.1 MEQ/L Chloride Level 105 MEQ/L Carbon Dioxide Level 36.5 MEQ/L Anion Gap 8 MEQ/L Blood Urea Nitrogen 28 MG/DL Creatinine 0.70 MG/DL Estimat Glomerular Filtration 118 ML/MIN Rate Random Glucose 124 MG/DL Calcium Level 9.7 MG/DL Phosphorus Level 4.4 MG/DL Magnesium Level 2.2 MG/DL Imaging Last Impressions Chest X-Ray 07/19/15 0600 Signed Impressions: Service Date/Time: Sunday, July 19, 2015 02:50 - CONCLUSION: No significant change. Tracheostomy tube remains in place. Kush Briscoe MD Tunnelled Chest Tube Removal 07/17/15 0000 Signed Impressions: Service Date/Time: Friday, July 17, 2015 00:00 - CONCLUSION: Uncomplicated chest tube removal. Erlin Mack MD Chest CT 07/11/15 0000 Signed Impressions: Service Date/Time: Saturday, July 11, 2015 09:49 - CONCLUSION: Scattered patchy densities significantly improved from previous study. Tiny anterior right basilar pneumothorax. Right-sided chest tube in good position. Néstor Matamoros MD Chest Tube Insertion 07/07/15 0000 Signed Impressions: Service Date/Time: Tuesday, July 07, 2015 17:14 - CONCLUSION: Uncomplicated right chest tube placement as above. Tai Taylor Jr., MD Head CT 06/18/151902 Signed Impressions: Service Date/Time: June 19:31 - CONCLUSION: Diffuse atrophy unchanged. No acute intracranial findings. Kush Briscoe MD Abdomen/Pelvis CT 06/18/151902 Signed Impressions: Service Date/Time: , June 18, 2015 19:36 - CONCLUSION: 1. Chronic nonspecific urinary bladder wall thickening. Bladder collapsed with Putnam catheter in place. 2. Chronic bilateral mid to lower lung zone groundglass opacity. 3. Nonobstructing left renal calculus. 4. Distended rectum. Kush Briscoe MD Objective Remarks GENERAL: 54-year-old male, cachectic, currently resting in bed with open-mouth in no acute distress HEENT: NC/18. Facial features are symmetric. PERRLA. MMM dry and pink. Oropharynx without erythema or thrush NECK: No JVD/thrombus encephalopathy status post tracheostomy and dry and intact CARDIAC: RRR. S1/S2. No S4.. No murmurs, clicks gallops or rubs. LUNGS: Clear to auscultation bilaterally. No wheeze, rhonchi or rales. No use of accessory muscles. ABDOMEN: S/NT/ND. Bowel sounds heard in all 4 quadrants. No organomegaly or masses. No guarding/rigidity/rebound. PEG tube noted, clean and dry EXTREMITIES: No significant peripheral edema, pulses are equal bilaterally. NEUROLOGY: Patient with significant contractures of the right lower extremity, upper extremities. Muscle wasting face, bilateral upper and lower extremities Date of Insertion: June 24, 2015 A/P Assessment and Plan Neuro/Psych: Toxic metabolic Encephalopathy - acute on chronic Parkinson's disease Cognitive disorder/Underlying dementia? Depression CT head 06/18/15: - diffuse atrophy unchanged. No acute intracranial findings Continue Sinemet 25/100 3 times a day via PEG, Seroquel 50 mg twice a day, olanzapine 5 mg a night, Klonopin 2 mg every 8 hours, Paxil 20 daily and Neurontin 300 mg twice a day. Note these medications have been slowly titrated up since admission Continue Roxanol 5 mg every 4 hours when necessary pain and fentanyl patch 50 g every 3 days for pain management. Resp: Acute on chronic respiratory failure Chronic trach, acute on chronic resp failure, pneumonia Right pneumothorax status post pigtail catheter Continue CPAP 20/06 in attempt to wean to TPs as tolerated. Pulm toilet, trach care Duo nebs 4 times a day and when necessary albuterol Pulmonology/Dr. Ag following Status post right pigtail chest tube by IR 07/06, removed 07/16. Follow chest x- ray revealed no pneumothorax Cardiac History of orthostasis History of CAD, HLP, Hypertension Continue Midodrine 5 mg twice a day Monitor HR and BP keep MAP>65mmHg GI: Malnutrition/protein calorie - moderate Status post PEG Hemorrhoids Gastroesophageal reflux disease - Tolerating Jevity 1.5 at 60 cc an hour - Currently Prevacid 30 mg per PEG tube daily for GERD - Current Colace/senna for bowel regimen. /metabolic: Nonobstructing left renal calculus - Monitor renal function, I/O's. electrolytes replacement per protocol. --Place on Free H20 200ml Q12 monitor Na level. ID: Candiduria ESBL positive Klebsiella/Pseudomonas pneumonia MRSA colonization - multidrug resistant UTI- ESBL02/19/15 , MRSA + 03/20/15 - Heena glabrata in urine 03/19/15 - Treated 15 days with tobramycin aerosols twice a day. - Recheck blood, sputum and urine cultures 07/06 no growth - 06/17 - blood cultures 2 - CONS/staph epi - 06/17 - sputum - ESBL positive Klebsiella/Pseudomonas - 06/17 - urine - C. glabrata/tropicalis - treated with Diflucan --Off abx monitor for signs of infections ( Fever, WBC) Endo: --SSI if needed for glycemic control Heme Anemia - Monitor CBC MSK Bilateral lower extremity Contractures Stage II DU - Wound care evaluate and treat - Continue physical therapy Prophylaxis - GI - Prevacid - DVT - SCDs/Lovenox Critical Care: The total care time was 35 minutes. Time to perform other separately billable procedures was not included in the critical care time. Antonio Carr MD Jul 21, 2015 08:07
[2015-07-21] MEDS: RESP: ALBUTEROL 2.5 MG/IPRATROPIUM 0.5 MG NEB (SCH) NEB ×3 (08:49→21:15)
[2015-07-21] MEDS: SODIUM CHLORIDE 0.9% FLUSH 5 ML FLUSH IVF SCH ×2 (09:00→23:08)
[2015-07-21] MEDS: ARTIFICIAL TEARS OPTH SOLN 15 ML BTL EACH EYE SCH ×3 (09:00→18:00)
[2015-07-21] MEDS: FREE WATER G-TUBE SCH ×2 (09:00→21:48)
[2015-07-21] MEDS: LANSOPRAZOLE SOLUTAB 30 MG TAB NG SCH (10:17)
[2015-07-21] MEDS: MIDODRINE 5 MG TAB G-TUBE SCH ×2 (10:17→21:48)
[2015-07-21] MEDS: QUEtiapine FUMARATE 25 MG TAB G-TUBE SCH ×2 (10:17→21:47)
[2015-07-21] MEDS: PARoxetine HCL 20 MG TAB G-TUBE SCH (10:17)
[2015-07-21] MEDS: LACTOBACILLUS ACIDOPHILUS TAB PO SCH ×3 (10:17→18:00)
[2015-07-21] MEDS: GABAPENTIN 300 MG CAP G-TUBE SCH ×2 (10:17→21:48)
[2015-07-21] MEDS: SENNOSIDES SYRUP 8.8 MG/5 ML CUP PO SCH (10:18)
[2015-07-21] MEDS: CHLORHEXIDINE 0.12% (ORAL KIT) 15 ML CUP MT SCH ×2 (10:18→21:49)
[2015-07-21] MEDS: DOCUSATE SODIUM 100 MG/10 ML UDC PO SCH ×2 (10:18→21:00)
--- NOTE | 2015-07-21 19:22 | HHI.PR ---
Subjective Remarks 54 YOWM with ChRF,Trach, multiple uti No fever On Fentanyl patch tolerates T-Tube Gets anxious Objective Vital Signs Vital Signs Date Time Temp Pulse Resp B/P Pulse Ox O2 Delivery O2 Flow Rate FiO2 07/21/15 18:00 92 07/21/15 16:33 99 35 07/21/15 16:00 98.9 96 24 119/70 96 07/21/15 16:00 92 07/21/15 14:00 92 07/21/15 12:00 98.9 97 24 124/75 96 07/21/15 12:00 92 07/21/15 10:00 92 07/21/15 09:39 99 T-piece 40 07/21/15 08:00 98.8 96 23 111/56 99 07/21/15 08:00 92 07/21/15 08:00 35 07/21/15 07:46 98 35 07/21/15 06:00 92 07/21/15 04:13 96 35 07/21/15 04:00 98.8 91 23 122/68 99 07/21/15 04:00 35 07/21/15 04:00 91 07/21/15 02:00 92 07/21/15 00:32 98 35 07/21/15 00:00 35 07/21/15 00:00 97 07/21/15 00:00 97.6 97 23 95/62 99 07/20/15 22:02 98 35 07/20/15 22:00 99 07/20/15 20:00 99 07/20/15 20:00 35 07/20/15 20:00 97.7 91 22 125/81 99 I/O 07/20/15 07/20/15 07/20/15 07/21/15 07/21/15 07/21/15 07:00 15:00 23:00 07:00 15:00 23:00 Intake Total 592 ml 662 ml 690 ml 599 ml 814 ml Output Total 425 ml 400 ml 950 ml 275 ml 300 ml Balance 167 ml 262 ml -260 ml 324 ml 514 ml Tube Feeding 472 ml 562 ml 590 ml 449 ml 614 ml Other 120 ml 100 ml 100 ml 150 ml 200 ml Output Urine Total 425 ml 400 ml 950 ml 275 ml 300 ml Tube Feeding Residual Discard 0 ml # Bowel Movements 2 0 1 0 Result Diagram: 07/21/15 0338 07/21/15 0338 Objective Remarks GENERAL: MBMN male on Vent. SKIN: Warm and dry. HEAD: Normocephalic. EYES: No scleral icterus. No injection or drainage. NECK: Supple, trachea midline. No JVD or lymphadenopathy. has trach CARDIOVASCULAR: Regular rate and rhythm without murmurs, gallops, or rubs. RESPIRATORY: Breath sounds equal bilaterally. No accessory muscle use. GASTROINTESTINAL: Abdomen soft, non-tender, nondistended. PEG tube in place MUSCULOSKELETAL: No cyanosis, or edema. BACK: Nontender without obvious deformity. No CVA tenderness. A/P Assessment and Plan VDRF S/P Trach Parkinson's diasease Dementia UTI Small PTX--resolved PLAN: ABX Meropenm, Diflucan and Tobra nebs TF Add Ativan 0.5 mg tid T-Tube ACV for SOB Severiano Ag MD Jul 21, 2015 19:21
[2015-07-21] MEDS: ENOXAPARIN SODIUM 30 MG/0.3 ML SYRINGE SQ SCH (21:48)
[2015-07-21] MEDS: OLANZapine 2.5 MG TAB GT SCH (21:49)
[2015-07-22] VITALS (17 sets, daily range): BP systolic 101–154; BP diastolic 58–83; PULSE 80–93; RESP 24–33; TEMP 97.8–99; O2SAT 94–100
[2015-07-22] MEDS: RESP: SODIUM CHLORIDE 3% 4 ML NEB NEB SCH ×4 (03:13→21:00)
[2015-07-22] MEDS: RESP: ALBUTEROL 2.5 MG/IPRATROPIUM 0.5 MG NEB (SCH) NEB ×4 (03:13→21:00)
[2015-07-22] MEDS: CHLORHEXIDINE GLUCONATE 2 % 1 PACK (2 CLOTHS) TOP SCH (04:00)
[2015-07-22 04:05] LABS: AUTOMATED NEUTROPHIL # 5.6 TH/MM3 (1.8-7.7); BASOPHIL # 0.3 TH/MM3 (0-0.2); BASOPHIL % 3.5 % (0.0-2.0); EOSINOPHIL # 0.5 TH/MM3 (0-0.4); EOSINOPHIL % 6.1 % (0.0-4.0); HEMATOCRIT 36.6 % (39.0-51.0); HEMO FLAGS DIFF FINAL; LYMPH % 15.7 % (9.0-44.0); LYMPHOCYTE # 1.3 TH/MM3 (1.0-4.8); MEAN CELL VOLUME 91.2 FL (80.0-100.0); MEAN CORPUSCULAR HEMOGLOBIN 29.2 PG (27.0-34.0); MONO % 7.8 % (0.0-8.0); NEUT % 66.9 % (16.0-70.0); PLATELET COUNT 198 TH/MM3 (150-450); RED BLOOD COUNT 4.01 MIL/MM3 (4.50-5.90); RED CELL DISTRIBUTION WIDTH 13.3 % (11.6-17.2); WHITE BLOOD COUNT 8.4 TH/MM3 (4.0-11.0)
[2015-07-22 04:34] LABS: BICARBONATE 38.5 MEQ/L (21.0-32.0); MAGNESIUM 2.4 MG/DL (1.5-2.5); POTASSIUM 4.2 MEQ/L (3.5-5.1)
[2015-07-22] MEDS: CARBIDOPA/LEVODOPA 25 MG/100 MG TAB GT SCH ×3 (05:01→21:15)
[2015-07-22] MEDS: clonazePAM 1 MG TAB PO SCH ×3 (05:03→21:15)
--- NOTE | 2015-07-22 05:22 | RADRPT ---
EXAM DATE/TIME: 07/22/2015 04:17 [place] COMPARISON: CT THORAX W/O CONTRAST, July 11, 2015, 9:49. CHEST SINGLE AP, July 19, 2015, 2:50. INDICATIONS : Short of breath. MEDICAL HISTORY : Hypertension. Gastroesophageal reflux disease. Diabetes mellitus type II. SURGICAL HISTORY : None. ENCOUNTER: Subsequent ACUITY: 3 weeks PAIN SCORE: Non-responsive. LOCATION: Bilateral chest FINDINGS: The cardiac silhouette is normal in transverse diameter. A tracheostomy tube is in place in the midli ne. There is stable reticulonodular opacity in both upper lobes. CONCLUSION: There has been no significant change when compared to the prior exam. John Anderson MD on July 22, 2015 at 5:19 Board Certified Radiologist. This report was verified electronically.
[2015-07-22] MEDS: SENNOSIDES SYRUP 8.8 MG/5 ML CUP PO SCH (09:00)
[2015-07-22] MEDS: DOCUSATE SODIUM 100 MG/10 ML UDC PO SCH ×2 (09:00→21:15)
[2015-07-22] MEDS: FREE WATER G-TUBE SCH ×2 (09:00→21:00)
--- NOTE | 2015-07-22 09:15 | HHI.CCPN ---
Subjective Remarks/Hospital Course 06/17: Pt is a 54 yr man with multiple medial problems including Parkinson's disease, advanced dementia, hyponatremia, anxiety, pneumonia, GERD, cognitive disorder, and multidrug resistant UTI- ESBL02/19/15 , who resides in a alf. Pt by report was found by staff in alf to be less alert and having respiratory difficultly and fevers. Pt was brought to ED adn placed on ventilator. His workup was inclusive of labs, chest xray and ct head and abd/pelvis. WBC 16.4, +UTI, lactic acid 4, troponin ,0.02, BUN/ cre 18/ 0.76. CT head 06/18/15: diffuse atrophy unchanged. No acute intracranial findings ct abd/ pelvis with IV contrast: 06/18/15 Conclusion: 1. Chronic nonspecific urinary bladder wall thickening. Bladder collapsed with Putnam catheter in place. 2.Chronic bilateral mid to lower zone groundglass opacity. 3. Nonobstructing left renal calculus. 4. Distended rectum Pt admitted and fluid and abx ordered. 06/18: Drowsy, easily arousable. On mechanical ventilation via tracheostomy. Tachypneic. Resting tremor noted. 06/19: Drowsy, arousable. On mechanical ventilation via tracheostomy. 06/20: Drowsy, arousable. Remains on mechanical ventilation via tracheostomy. We'll repeat blood cultures, UA and urine cultures. Fluconazole IV added in view of yeast in urine. 07/06: Reconsulted as patient return to the ventilator on a right ventricular due to tachypnea. Low-grade temperatures. Tolerating tube feeding. Extremity encephalopathic demented patient with difficult neurological examination. 07/07: Status post chest tube placement by IR for right pneumothorax 07/06. Afebrile. Tolerating tube feeds. Positive BM. Currently tachypneic on the ventilator. Does not appear to be any acute distress. 07/08: Afebrile. Tolerating tube feeding. He is comfortable currently on CPAP trials 11/10. Positive BM. 07/09: Afebrile. Tolerating tube feeding. Appears comfortable on T bar. Positive BM. 07/10: Afebrile. Eyes are open. Remained on T piece overnight. Tolerating tube feeding. 07/11: MAXIMUM TEMPERATURE 100. Currently 98.6. Eyes are open. On ACV overnight secondary to "tachypnea and sweating". Switching back to PSV trials today. Goal is T piece during daytime, CPAP at night. 07/12: No acute events overnight. On PSV 15/5 -attempt TP up to 6 hours today. No pneumothorax on chest x-ray 07/13: Placed back on full ventilator support for tachypnea. Otherwise clinically unchanged. No fever today 07/14: Patient was on T piece yesterday evening, placed back on PSV overnight, patient mechanical ventilation this morning. Patient appears to be struggling with mechanical ventilation. Patient placed back on PSV with improvement 07/15: Patient placed back on mechanical ventilation last evening due to respiratory rate. It was indicated patient was tachypnea can the 40s. Patient on mechanical ventilation this time with respiration rate mid 20s. Chest tube still in place without any output, chest x-ray still indicating resolution of pneumothorax. 07/16: Patient seen and examined today. Patient placed back on mechanical ventilation overnight due to respiratory rate. Even on mechanical ventilation patient has respiration rate in the 30s. Patient afebrile, blood pressure stable. Continue vent weaning 07/17: Patient seen and examined. Currently afebrile. Currently on CPAP 15/5 @ 40%. Patient is awake with open mouth resting in bed in no apparent acute distress. Tolerating tube feeding. 2 bowel movements. 07/18: No neurological changes. Afebrile. 2 bowel moments. Tolerating tube feeding. We'll attempt TP trials today. On CPAP since 07/15 07/19 No events overnight. On CPAP with PS: 10, PEEP: 5 and FIO2 35%. Afebrile. On no sedation. 07/20 No events overnight. Tolerating CPAP. Afebrile. Subjective 07/21: Remains on CPAP. Attempt T piece trial today. Afebrile. One bowel movement. Tolerating tube feeding. Objective - Vital Signs Date Time Temp Pulse Resp B/P Pulse Ox O2 Delivery O2 Flow Rate FiO2 07/22/15 08:14 100 35 07/22/15 06:00 83 07/22/15 04:00 99.0 25 101/58 07/21/15 09:39 T-piece I/O 07/21/15 07/21/15 07/22/15 08:00 16:00 00:00 Intake Total 599 ml 814 ml 1132 ml Output Total 275 ml 300 ml 975 ml Balance 324 ml 514 ml 157 ml Result Diagram: 07/22/15 0335 07/22/15 0335 Other Results Imaging Last Impressions Chest X-Ray 07/22/15 0600 Signed Impressions: Service Date/Time: Wednesday, July 22, 2015 04:17 - CONCLUSION: There has been no significant change when compared to the prior exam. John Anderson MD Tunnelled Chest Tube Removal 07/17/15 0000 Signed Impressions: Service Date/Time: Friday, July 17, 2015 00:00 - CONCLUSION: Uncomplicated chest tube removal. Erlin Mack MD Chest CT 07/11/15 0000 Signed Impressions: Service Date/Time: Saturday, July 11, 2015 09:49 - CONCLUSION: Scattered patchy densities significantly improved from previous study. Tiny anterior right basilar pneumothorax. Right-sided chest tube in good position. Néstor Matamoros MD Chest Tube Insertion 07/07/15 0000 Signed Impressions: Service Date/Time: Tuesday, July 07, 2015 17:14 - CONCLUSION: Uncomplicated right chest tube placement as above. Tai Taylor Jr., MD Head CT 06/18/151902 Signed Impressions: Service Date/Time: June 19:31 - CONCLUSION: Diffuse atrophy unchanged. No acute intracranial findings. Kush Briscoe MD Abdomen/Pelvis CT 06/18/151902 Signed Impressions: Service Date/Time: June 19:36 - CONCLUSION: 1. Chronic nonspecific urinary bladder wall thickening. Bladder collapsed with Putnam catheter in place. 2. Chronic bilateral mid to lower lung zone groundglass opacity. 3. Nonobstructing left renal calculus. 4. Distended rectum. Kush Briscoe MD Objective Remarks GENERAL: 54-year-old male, cachectic, currently resting in bed with open-mouth in no acute distress HEENT: NC/18. Facial features are symmetric. PERR. MMM dry and pink. Oropharynx without erythema or thrush NECK: No JVD/thrombus encephalopathy status post tracheostomy clean/dry and intact CARDIAC: RRR. S1/S2. No S4.. No murmurs, clicks gallops or rubs. LUNGS: Clear to auscultation bilaterally. No wheeze, rhonchi or rales. No use of accessory muscles. ABDOMEN: S/NT/ND. Bowel sounds heard in all 4 quadrants. No organomegaly or masses. No guarding/rigidity/rebound. PEG tube noted, clean and dry EXTREMITIES: No significant peripheral edema, pulses are equal bilaterally. NEUROLOGY: Patient with significant contractures of the right lower extremity, upper extremities. Muscle wasting face, bilateral upper and lower extremities Date of Insertion: June 24, 2015 A/P Assessment and Plan Neuro/Psych: Toxic metabolic Encephalopathy - chronic Parkinson's disease Cognitive disorder/Underlying dementia? Depression CT head 06/18/15: - diffuse atrophy unchanged. No acute intracranial findings Continue Sinemet 25/100 3 times a day via PEG, Seroquel 50 mg twice a day, olanzapine 5 mg a night, Klonopin 2 mg every 8 hours, Paxil 20 daily and Neurontin 300 mg twice a day. Note these medications have been slowly titrated up since admission Continue Roxanol 5 mg every 4 hours when necessary pain and fentanyl patch 50 g every 3 days for pain management. Resp: Acute on chronic respiratory failure Chronic trach, acute on chronic resp failure, pneumonia Right pneumothorax status post pigtail catheter Continue CPAP 11/10 in attempt to wean to TPs as tolerated. Pulm toilet, trach care Duo nebs 4 times a day and when necessary albuterol Pulmonology/Dr. Ag following Status post right pigtail chest tube by IR 07/06, removed 07/16. Follow chest x- ray revealed no pneumothorax Cardiac History of orthostasis History of CAD, HLP, Hypertension Continue Midodrine 5 mg twice a day Monitor HR and BP keep MAP>65mmHg GI: Malnutrition/protein calorie - moderate Status post PEG Hemorrhoids Gastroesophageal reflux disease - Tolerating Jevity 1.5 at 60 cc an hour - Currently Prevacid 30 mg per PEG tube daily for GERD - Current Colace/senna for bowel regimen. /metabolic: Nonobstructing left renal calculus Hypernatremia - Monitor renal function, I/O's. electrolytes replacement per protocol. - Place on Free H20 200ml Q12 monitor -- We'll give one quarter normal saline 2 L. Recheck sodium in a.m. ID: Candiduria ESBL positive Klebsiella/Pseudomonas pneumonia MRSA colonization - multidrug resistant UTI- ESBL02/19/15 , MRSA + 03/20/15 - Heena glabrata in urine 03/19/15 - Treated 15 days with tobramycin aerosols twice a day. - Recheck blood, sputum and urine cultures 07/06 no growth - 06/17 - blood cultures 2 - CONS/staph epi - 06/17 - sputum - ESBL positive Klebsiella/Pseudomonas - 06/17 - urine - C. glabrata/tropicalis - treated with Diflucan --Off abx monitor for signs of infections ( Fever, WBC) Endo: --SSI if needed for glycemic control Heme Anemia - Monitor CBC MSK Bilateral lower extremity Contractures Stage II DU - Wound care evaluate and treat - Continue physical therapy Prophylaxis - GI - Prevacid - DVT - SCDs/Lovenox Critical Care: The total care time was 35 minutes. Time to perform other separately billable procedures was not included in the critical care time. Chad Oleary MD Jul 22, 2015 09:15
[2015-07-22] MEDS: CHLORHEXIDINE 0.12% (ORAL KIT) 15 ML CUP MT SCH ×2 (09:46→21:16)
[2015-07-22] MEDS: MIDODRINE 5 MG TAB G-TUBE SCH ×2 (09:47→21:15)
[2015-07-22] MEDS: ARTIFICIAL TEARS OPTH SOLN 15 ML BTL EACH EYE SCH ×3 (09:47→17:20)
[2015-07-22] MEDS: LANSOPRAZOLE SOLUTAB 30 MG TAB NG SCH (09:48)
[2015-07-22] MEDS: QUEtiapine FUMARATE 25 MG TAB G-TUBE SCH ×2 (09:48→21:16)
[2015-07-22] MEDS: SODIUM CHLORIDE 0.9% FLUSH 5 ML FLUSH IVF SCH ×2 (09:48→21:00)
[2015-07-22] MEDS: LACTOBACILLUS ACIDOPHILUS TAB PO SCH ×3 (09:48→17:20)
[2015-07-22] MEDS: GABAPENTIN 300 MG CAP G-TUBE SCH ×2 (09:48→21:16)
[2015-07-22] MEDS: PARoxetine HCL 20 MG TAB G-TUBE SCH (09:48)
[2015-07-22] MEDS: SODIUM CHLORIDE 23.4% INJ 38.5 MEQ in WATER STERILE FOR INJ 1,000 ML IV SCH ×2 (12:15→21:17)
--- NOTE | 2015-07-22 17:11 | HHI.HCPN ---
Reason for visit a. To assist with evaluation and management of symptoms including: dyspnea ; pain b. To assist medical decision maker(s) with: better understanding of current medical conditions; weighing benefits/burdens of medical treatment options; making medical treatment decisions. . Subjective/Interval History Mr. Foreman remains minimally responsive in the MICU. He had been tolerating CPAP trials and was transitioned off vent around mid-day today and is now on t- piece at 40% FI02. He has appeared comfortable to primary nurse even with re- positioning. He has needed no breakthrough opiates since 07/19/15. He has his eyes open for me but does not track, is unable to follow even simple commands, and makes no attempt to mouth words. There are a few spontaneous movements of the right extremities. Nurse reports seeing no increased responsiveness during her shift. There have been no calls to floor from family. Afebrile. Respiratory rate mostly in the mid 20s. Other VS stable. Urine output good. Bowels moving. CBC stable. Na+ still elevated. Renal function good. CXR today unchanged. From Dr. Pickard's initial palliative care consultation of 07/15/15... This is the 5th acute care [facility] admission in the last 10 months for this unfortunate 54 y/o male [facility] resident with advanced Parkinson's disease ; dementia; tracheostomy and PEG tube who was sent to the ED from his facility on 06/18/15 because of fevers, labored breathing, worsening mental status; and purulent looking sputum at the trach site. The patient has had multiple hospitalizations which included stays in the intensive care unit for various infections. He had a urinary tract infection with multidrug resistant ESBL on 02/19/15. He was last MRSA positive on . senior living notes from the facility indicate that his current baseline is: * Bedbound status * Unable to communicate * NPO -- on tube feedings at 85 cc /hr * Dependent for all ADLs In the emergency Department, initial vital signs were as follows > temperature 100.9; pulse 98; respiratory rate 38; blood pressure 104/61; pulse oximetry 99% on room air via trach collar. Initial physical examination the emergency department revealed the following > patient was frail and chronically ill-appearing. Skin showed no obvious wounds. Head, eyes, ENT, neck, cardiovascular, respiratory, gastrointestinal exams were unremarkable. Neurologically, the patient was unable to answer questions or respond or follow commands. Initial diagnostic testing revealed the following: * CBC showed WBC 16.4; hemoglobin 11.3; platelet count 176 * Coagulation profile showed PT 11.4; INR 1.1; PTT 29.4 * Chemistry profile showed sodium 141; potassium 4.5; chloride 105; CO2 27.4; anion gap 9; BUN 21; creatinine 0.85; estimated GFR 95; glucose 116; calcium 9.6 * Liver function tests showed total bilirubin 0.6; AST 23; ALT 38; alkaline phosphatase 59; total protein 7.5; albumen 3.2 * Urinalysis was remarkable for large occult blood; large leukocyte esterase; few bacteria; few yeast with hyphae; few budding yeast. * Arterial blood gases on trach mask at 40% showed pH 7.53; PCO2 33; PaO2 108; bicarbonate 27; base excess 4.2 * Chest x-ray showed no acute cardiopulmonary disease * Head CT showed diffuse atrophy unchanged from prior exam. * CT of the abdomen and pelvis showed chronic nonspecific urinary bladder wall thickening; bladder collapsed with Valdez catheter in place; chronic bilateral mid to lower lung zone groundglass opacity; nonobstructing left renal calculus; distended rectum. * The emergency room doctor diagnosed severe sepsis. The patient was given 2 L of IV fluid and broad-spectrum antibiotic-coated verge in the emergency department. Cultures were obtained. Valdez catheter was changed. As the patient was markedly tachypneic with increased work of breathing and use of accessory muscles during his stay in the emergency department. He was placed on CPAP and subsequently intubated and placed on mechanical ventilation. Critical care was consulted and the patient was admitted to the intensive care unit. Further examination revealed a stage II 6 x 2 cm sacral wound. Urine culture on admission grew out Heena of 2 different species. Sputum culture grew out Klebsiella pneumonia ESBL positive as well as pseudomonas. Blood culture grew out coag-negative staph and staph epidermidis. Both infectious disease and pulmonology were consulted. The patient slowly improved, was extubated, and critical care signed off on . However, on 07/06 the patient had to be placed back on the ventilator. A right sided pneumothorax was noted and patient underwent chest tube placement by interventional radiology. Pneumothorax has appeared to resolve on most recent chest x-ray. Sputum, blood, and urine cultures from 07/07/15 are all negative. White blood count is currently down to 7. Hemoglobin is 10.6. Albumen is suboptimal at 3.0. Renal function is normal. He is currently off anti-biotics. Current pain regimen includes the following: * Fentanyl patch; 50 g per hour * Morphine sulfate 5 mg sublingually or via the tube every 4 hours when necessary (he has been using 1-2 doses of this per day) The patient was tolerating CPAP earlier today and has since been removed from the ventilator and is on a T-piece at 40% FI02. At time of my visit, eyes are open. He intermittently tracks. He cannot follow commands and makes no attempt to interact. . Family/friend interactions No interaction with family today. . Advance Directives Living Will: Never completed Health Care Surrogate: Copy in medical record Durable Power of Cloth Winder: Never completed Advance Directive Specifics Date completed: Patient visited Scott Mack, Cloth Winder in March and again in November 2014. The patient was encouraged to complete Advance directive documents but never did them. Dr. Pickard personally called Mr. Mack ([phone]) to check for advance directives. Health Care Surrogate(s): The patient completed a health care surrogate document dated 09/02/14 desigating his friend Bola Nolasco as surrogate. Mr. Nolasco was not aware of this and has declined serving in that capacity. The patient has an adult daughter -- Radha Foreman who is willing to serve as health care proxy decision maker. Patient's mother, Teresa is aware. Objective Vital Signs Date Time Temp Pulse Resp B/P Pulse Ox O2 Delivery O2 Flow Rate FiO2 07/22/15 16:00 98.5 85 26 113/83 94 07/22/15 16:00 84 07/22/15 14:00 85 07/22/15 12:00 35 07/22/15 12:00 87 07/22/15 12:00 97.9 87 25 123/69 97 07/22/15 10:00 90 07/22/15 08:14 100 35 07/22/15 08:00 98.0 87 24 123/72 100 07/22/15 08:00 87 07/22/15 08:00 35 07/22/15 06:00 83 07/22/15 04:26 100 35 07/22/15 04:00 35 07/22/15 04:00 99.0 82 25 101/58 100 07/22/15 04:00 81 07/22/15 02:00 80 07/22/15 01:15 100 35 07/22/15 00:00 35 07/22/15 00:00 98.9 88 27 107/75 100 07/22/15 00:00 90 07/21/15 22:00 95 07/21/15 21:18 99 35 07/21/15 21:00 99.0 98 22 126/77 98 07/21/15 20:00 35 07/21/15 20:00 97 07/21/15 18:00 92 Intake & Output 07/22/15 07/22/15 07:00 19:00 Intake Total 2025 ml 1257 ml Output Total 1375 ml 650 ml Balance 650 ml 607 ml IV Total 295 ml Tube Feeding 1275 ml 682 ml Other 750 ml 280 ml Output Urine Total 1375 ml 650 ml # Bowel Movements 1 1 . Physical Exam CONSTITUTIONAL/GENERAL: This is a thin, pale, contracted, chronically ill appearing male on track to T-tube in MICU. No apparent distress. TUBES/LINES/DRAINS: Trach; valdez; SCDs; soft wrist restraints; peripheral iv left upper extremity ; PEG tube SKIN: No jaundice, rashes, or lesions. No wounds seen anteriorly -- did not examine sacral area. Skin temperature appropriate. Not diaphoretic. HEAD: Atraumatic. Normocephalic. EYES: Pupils equal and round. No scleral icterus. No injection or drainage. Fundi not examined. ENT: Nose without bleeding or purulent drainage. Throat without visible erythema , exudates, masses, or lesions. NECK: Trachea midline. Tracheostomy. CARDIOVASCULAR: Regular rate and rhythm without murmurs, gallops, or rubs. No JVD. Peripheral pulses symmetric. RESPIRATORY/CHEST: Symmetric, unlabored respirations. Mild tachypnea. Some coarse breath sounds bilaterally. Breath sounds equal bilaterally and diminished at bases. No wheezes. GASTROINTESTINAL: Abdomen soft, non-tender, nondistended. No hepato-splenomegaly , or palpable masses. No guarding. Bowel sounds present. GENITOURINARY: Without palpable bladder distension. Valdez catheter in place. MUSCULOSKELETAL: Extremities without clubbing, cyanosis, or edema. Contractures. No calf tenderness. No mottling . LYMPHATICS: Not examined NEUROLOGICAL: Eyes open but does not track. He does blink to threat. Unable to follow even simple commands. Few spontaneous movements of right extremities. PSYCHIATRIC: Unable to assess due to level of responsiveness. . Diagnostic Tests Laboratory Laboratory Tests Test 07/21/15 07/22/15 03:38 03:35 White Blood Count 10.2 TH/MM3 8.4 TH/MM3 (4.0-11.0) (4.0-11.0) Red Blood Count 3.91 MIL/MM3 4.01 MIL/MM3 (4.50-5.90) (4.50-5.90) Hemoglobin 11.4 GM/DL 11.7 GM/DL (13.0-17.0) (13.0-17.0) Hematocrit 35.0 % 36.6 % (39.0-51.0) (39.0-51.0) Mean Corpuscular Volume 89.7 FL 91.2 FL (80.0-100.0) (80.0-100.0) Mean Corpuscular Hemoglobin 29.1 PG 29.2 PG (27.0-34.0) (27.0-34.0) Mean Corpuscular Hemoglobin 32.5 % 32.0 % Concent (32.0-36.0) (32.0-36.0) Red Cell Distribution Width 13.3 % 13.3 % (11.6-17.2) (11.6-17.2) Platelet Count 156 TH/MM3 198 TH/MM3 (150-450) (150-450) Mean Platelet Volume 10.8 FL 10.6 FL (7.0-11.0) (7.0-11.0) Neutrophils (%) (Auto) 67.2 % 66.9 % (16.0-70.0) (16.0-70.0) Lymphocytes (%) (Auto) 19.7 % 15.7 % (9.0-44.0) (9.0-44.0) Monocytes (%) (Auto) 6.8 % (0.0-8.0) 7.8 % (0.0-8.0) Eosinophils (%) (Auto) 5.6 % (0.0-4.0) 6.1 % (0.0-4.0) Basophils (%) (Auto) 0.7 % (0.0-2.0) 3.5 % (0.0-2.0) Neutrophils # (Auto) 6.8 TH/MM3 5.6 TH/MM3 (1.8-7.7) (1.8-7.7) Lymphocytes # (Auto) 2.0 TH/MM3 1.3 TH/MM3 (1.0-4.8) (1.0-4.8) Monocytes # (Auto) 0.7 TH/MM3 0.7 TH/MM3 (0-0.9) (0-0.9) Eosinophils # (Auto) 0.6 TH/MM3 0.5 TH/MM3 (0-0.4) (0-0.4) Basophils # (Auto) 0.1 TH/MM3 0.3 TH/MM3 (0-0.2) (0-0.2) CBC Comment DIFF FINAL DIFF FINAL Differential Comment Sodium Level 149 MEQ/L 147 MEQ/L (136-145) (136-145) Potassium Level 4.1 MEQ/L 4.2 MEQ/L (3.5-5.1) (3.5-5.1) Chloride Level 105 MEQ/L 105 MEQ/L (98-107) (98-107) Carbon Dioxide Level 36.5 MEQ/L 38.5 MEQ/L (21.0-32.0) (21.0-32.0) Anion Gap 8 MEQ/L (5-15) 4 MEQ/L (5-15) Blood Urea Nitrogen 28 MG/DL (7-18) 29 MG/DL (7-18) Creatinine 0.70 MG/DL 0.60 MG/DL (0.60-1.30) (0.60-1.30) Estimat Glomerular Filtration 118 ML/MIN 141 ML/MIN Rate (>89) (>89) Random Glucose 124 MG/DL 129 MG/DL (74-106) (74-106) Calcium Level 9.7 MG/DL 10.1 MG/DL (8.5-10.1) (8.5-10.1) Phosphorus Level 4.4 MG/DL 4.7 MG/DL (2.5-4.9) (2.5-4.9) Magnesium Level 2.2 MG/DL 2.4 MG/DL (1.5-2.5) (1.5-2.5) . Result Diagram: 07/22/15 0335 07/22/15 0335 Imaging Last Impressions Chest X-Ray 07/22/15 0600 Signed Impressions: Service Date/Time: Wednesday, July 22, 2015 04:17 - CONCLUSION: There has been no significant change when compared to the prior exam. John Anderson MD Tunnelled Chest Tube Removal 07/17/15 0000 Signed Impressions: Service Date/Time: Friday, July 17, 2015 00:00 - CONCLUSION: Uncomplicated chest tube removal. Erlin Mack MD Chest CT 07/11/15 0000 Signed Impressions: Service Date/Time: Saturday, July 11, 2015 09:49 - CONCLUSION: Scattered patchy densities significantly improved from previous study. Tiny anterior right basilar pneumothorax. Right-sided chest tube in good position. Néstor Matamoros MD Chest Tube Insertion 07/07/15 0000 Signed Impressions: Service Date/Time: Tuesday, July 07, 2015 17:14 - CONCLUSION: Uncomplicated right chest tube placement as above. Tai Taylor Jr., MD Head CT 06/18/151902 Signed Impressions: Service Date/Time: June 19:31 - CONCLUSION: Diffuse atrophy unchanged. No acute intracranial findings. Kush Briscoe MD Abdomen/Pelvis CT 06/18/151902 Signed Impressions: Service Date/Time: June 19:36 - CONCLUSION: 1. Chronic nonspecific urinary bladder wall thickening. Bladder collapsed with Valdez catheter in place. 2. Chronic bilateral mid to lower lung zone groundglass opacity. 3. Nonobstructing left renal calculus. 4. Distended rectum. Kush Briscoe MD . Procedures * Mechanical ventilation * Chest tube placement on right 07/07/15 * Chest tube removal 07/17/15 . Assessment and Plan Disease Oriented Problem List: (1) Acute respiratory failure Comment: Secondary to pneumonia (2) Pneumonia Comment: Cultures have been positive for Pseudomonas AND Klebsiella ESBL (3) Pneumothorax on right Comment: Resolved . (4) Septic shock Comment: Blood cx have been postiive for Staph coag neg and Staph epidermidis . (5) Parkinson disease (6) Moderate malnutrition (7) UTI (urinary tract infection) Comment: Cultures have been positive for Heena (tropicalis and glabrata) (8) Chronic respiratory failure Symptom Scale: (1) Pain 0-10 Scale: Unable to quantify Comment: Sources of pain might include wound, prolonged bedbound status, contractures, restraints, valdez, vascular access catheters. Appears comfortable on current regimen. ,l (2) Dyspnea 0-10 Scale: Unable to quantify Comment: Still intermittently tachypnic off the vent. . Pertinent Non-Medical Issues Psychosocial: detention [facility]p resident. 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 Severe dementia. Daughter, mother, and brother are involved. Spiritual: [employer]. Has been a member for the [employer] and members have provided both community support and spiritual support in the past. Legal: No advance directives. Daughter (Radha Foreman) is legal proxy and lives 4 hours away. . Ethical issues impacting care: None. . Important Contacts * Radha Foreman (daughter and proxy) [phone] * Teresa Perea (mother -- lives in [place]) [phone] . Prognosis Patient has end stage Parkinson's with end stage dementia. He is a terminal [place] resident and has required multiple hospitalizations for sepsis. He is a chronic trach/PEG tube patient with contractures and skin breakdown. Should family continue to want aggressive care, he will continue to go back and forth from facility to hospital until such time that we are no longer able to overcome the sepsis. Patient is hospice eligible whenever family is ready to transition to "comfort measures only." . Code Status: Full Code Plan * Code status: FULL CODE * Decision making: Patient is incapacitated and will not regain capacity. There is no designated health care surrogate. Daughter, Radha Foreman, is legal proxy under [place] statutes but can be hard to contact at times. * Goals: Daughter -- Radha-- the proxy confirms that her father "is a fighter and was always a fighter" and would therefore want to continue with all aggressive measures including resuscitation and life support. * Pain: Sources of pain are unclear as patient in non communicative, but would include prolonged bedbound status; tubes and lines; contractures; wound; etc. Current regimen appears to adequate . No further recommendations at this time. * Dyspnea: Dyspnea was due to pneumonia and pneumothorax. Now improving but has been challenging to get off vent support. May need LTAC placement if he goes back on vent again prior to discharge. No further recommendations at this time. * Malnutrition: Anticipate improvement as infection clears and patient is tolerating tube feeds better. * Agitation/Behavioral issues: Adequately controlled with current neuroleptic and benzo regimen. No further recommendations at this time. * Palliative care will try and meet with Radha (proxy) in person when she next comes to visit. . . Attestation To help prompt me to consider important information that might be impacting today's encounter and assessment, information from prior notes written by myself or my colleagues may have been "brought forward" into today's note. My signature on this note, however, is an attestation that I personally performed the exam, history, and/or decision-making noted today, and, unless otherwise indicated, the interactions with patient, family, and staff as well as the review of records all occurred today. I also attest that the listed assessment and stated plan reflect my best clinical judgment today based on the combination of historical information, prior notes, and today's exam/ interactions. When time spent is documented, it refers only to time spent today by the signer, or if indicated, combined time spent today by collaborating physician/nurse practitioner. . Pascual Pickard MD Jul 22, 2015 17:11
--- NOTE | 2015-07-22 18:14 | HHI.PR ---
Subjective Remarks 54 YOWM with ChRF,Trach, multiple uti No fever On Fentanyl patch tolerates T-Tube Gets anxious. No Fever Objective Vital Signs Vital Signs Date Time Temp Pulse Resp B/P Pulse Ox O2 Delivery O2 Flow Rate FiO2 07/22/15 16:00 98.5 85 26 113/83 94 07/22/15 16:00 84 07/22/15 14:00 85 07/22/15 12:00 35 07/22/15 12:00 87 07/22/15 12:00 97.9 87 25 123/69 97 07/22/15 10:00 90 07/22/15 08:14 100 35 07/22/15 08:00 98.0 87 24 123/72 100 07/22/15 08:00 87 07/22/15 08:00 35 07/22/15 06:00 83 07/22/15 04:26 100 35 07/22/15 04:00 35 07/22/15 04:00 99.0 82 25 101/58 100 07/22/15 04:00 81 07/22/15 02:00 80 07/22/15 01:15 100 35 07/22/15 00:00 35 07/22/15 00:00 98.9 88 27 107/75 100 07/22/15 00:00 90 07/21/15 22:00 95 07/21/15 21:18 99 35 07/21/15 21:00 99.0 98 22 126/77 98 07/21/15 20:00 35 07/21/15 20:00 97 I/O 07/21/15 07/21/15 07/21/15 07/22/15 07/22/15 07/22/15 07:00 15:00 23:00 07:00 15:00 23:00 Intake Total 599 ml 814 ml 1132 ml 893 ml 1257 ml Output Total 275 ml 300 ml 975 ml 400 ml 650 ml Balance 324 ml 514 ml 157 ml 493 ml 607 ml IV Total 295 ml Tube Feeding 449 ml 614 ml 582 ml 693 ml 682 ml Other 150 ml 200 ml 550 ml 200 ml 280 ml Output Urine Total 275 ml 300 ml 975 ml 400 ml 650 ml # Bowel Movements 0 1 0 1 Result Diagram: 07/22/15 0335 07/22/15334 Objective Remarks GENERAL: MBMN male on Vent. SKIN: Warm and dry. HEAD: Normocephalic. EYES: No scleral icterus. No injection or drainage. NECK: Supple, trachea midline. No JVD or lymphadenopathy. has trach CARDIOVASCULAR: Regular rate and rhythm without murmurs, gallops, or rubs. RESPIRATORY: Breath sounds equal bilaterally. No accessory muscle use. GASTROINTESTINAL: Abdomen soft, non-tender, nondistended. PEG tube in place MUSCULOSKELETAL: No cyanosis, or edema. BACK: Nontender without obvious deformity. No CVA tenderness. A/P Assessment and Plan VDRF S/P Trach Parkinson's diasease Dementia UTI Small PTX--resolved PLAN: ABX Meropenm, Diflucan and Tobra nebs TF Add Ativan 0.5 mg tid T-Tube ACV for SOB Severiano Ag MD Jul 22, 2015 18:14
[2015-07-22] MEDS: OLANZapine 2.5 MG TAB GT SCH (21:00)
[2015-07-22] MEDS: ENOXAPARIN SODIUM 30 MG/0.3 ML SYRINGE SQ SCH (21:15)
[2015-07-23] VITALS (19 sets, daily range): BP systolic 96–131; BP diastolic 55–71; PULSE 69–90; RESP 22–32; TEMP 97.9–98.9; O2SAT 93–100
[2015-07-23] MEDS: SODIUM CHLORIDE 23.4% INJ 38.5 MEQ in WATER STERILE FOR INJ 1,000 ML IV SCH (02:41)
[2015-07-23] MEDS: MORPHINE SULFATE ORAL SOLN 10 MG/0.5 ML SYRINGE PO PRN (02:41)
[2015-07-23] MEDS: RESP: ALBUTEROL 2.5 MG/IPRATROPIUM 0.5 MG NEB (SCH) NEB ×4 (03:50→20:04)
[2015-07-23] MEDS: RESP: SODIUM CHLORIDE 3% 4 ML NEB NEB SCH ×4 (03:50→20:04)
[2015-07-23] MEDS: CHLORHEXIDINE GLUCONATE 2 % 1 PACK (2 CLOTHS) TOP SCH (04:00)
[2015-07-23] MEDS: CARBIDOPA/LEVODOPA 25 MG/100 MG TAB GT SCH ×3 (05:34→20:47)
[2015-07-23] MEDS: clonazePAM 1 MG TAB PO SCH ×3 (05:34→20:47)
[2015-07-23] MEDS: REMOVE OLD PATCH TD SCH (08:00)
[2015-07-23] MEDS: SENNOSIDES SYRUP 8.8 MG/5 ML CUP PO SCH (08:13)
[2015-07-23] MEDS: DOCUSATE SODIUM 100 MG/10 ML UDC PO SCH ×2 (08:13→20:44)
[2015-07-23] MEDS: PARoxetine HCL 20 MG TAB G-TUBE SCH (08:14)
[2015-07-23] MEDS: GABAPENTIN 300 MG CAP G-TUBE SCH ×2 (08:14→20:37)
[2015-07-23] MEDS: LANSOPRAZOLE SOLUTAB 30 MG TAB NG SCH (08:14)
[2015-07-23] MEDS: QUEtiapine FUMARATE 25 MG TAB G-TUBE SCH ×2 (08:14→20:38)
[2015-07-23] MEDS: LACTOBACILLUS ACIDOPHILUS TAB PO SCH ×3 (08:14→17:05)
[2015-07-23] MEDS: MIDODRINE 5 MG TAB G-TUBE SCH ×2 (08:14→20:38)
[2015-07-23] MEDS: fentaNYL 50 MCG/HR PATCH TD SCH (08:14)
[2015-07-23] MEDS: CHLORHEXIDINE 0.12% (ORAL KIT) 15 ML CUP MT SCH ×2 (08:15→20:37)
[2015-07-23] MEDS: SODIUM CHLORIDE 0.9% FLUSH 5 ML FLUSH IVF SCH ×2 (08:15→20:43)
[2015-07-23] MEDS: ARTIFICIAL TEARS OPTH SOLN 15 ML BTL EACH EYE SCH ×3 (08:15→17:06)
[2015-07-23] MEDS: FREE WATER G-TUBE SCH ×2 (08:15→20:37)
[2015-07-23 08:42] LABS: BICARBONATE 34.7 MEQ/L (21.0-32.0); POTASSIUM 3.7 MEQ/L (3.5-5.1)
--- NOTE | 2015-07-23 09:56 | HHI.CCPN ---
Subjective Remarks/Hospital Course 06/17: Pt is a 54 yr man with multiple medial problems including Parkinson's disease, advanced dementia, hyponatremia, anxiety, pneumonia, GERD, cognitive disorder, and multidrug resistant UTI- ESBL02/19/15 , who [facility] in a [facility]. Pt by report was found by staff in [facility] to be less alert and having respiratory difficultly and fevers. Pt was brought to ED adn placed on ventilator. His workup was inclusive of labs, chest xray and ct head and abd/pelvis. WBC 16.4, +UTI, lactic acid 4, troponin ,0.02, BUN/ cre 18/ 0.76. CT head 06/18/15: diffuse atrophy unchanged. No acute intracranial findings ct abd/ pelvis with IV contrast: 06/18/15 Conclusion: 1. Chronic nonspecific urinary bladder wall thickening. Bladder collapsed with Putnam catheter in place. 2.Chronic bilateral mid to lower zone groundglass opacity. 3. Nonobstructing left renal calculus. 4. Distended rectum Pt admitted and fluid and abx ordered. 06/18: Drowsy, easily arousable. On mechanical ventilation via tracheostomy. Tachypneic. Resting tremor noted. 06/19: Drowsy, arousable. On mechanical ventilation via tracheostomy. 06/20: Drowsy, arousable. Remains on mechanical ventilation via tracheostomy. We'll repeat blood cultures, UA and urine cultures. Fluconazole IV added in view of yeast in urine. 07/06: Reconsulted as patient return to the ventilator on a right ventricular due to tachypnea. Low-grade temperatures. Tolerating tube feeding. Extremity encephalopathic demented patient with difficult neurological examination. 07/07: Status post chest tube placement by IR for right pneumothorax 07/06. Afebrile. Tolerating tube feeds. Positive BM. Currently tachypneic on the ventilator. Does not appear to be any acute distress. 07/08: Afebrile. Tolerating tube feeding. He is comfortable currently on CPAP trials 11/10. Positive BM. 07/09: Afebrile. Tolerating tube feeding. Appears comfortable on T bar. Positive BM. 07/10: Afebrile. Eyes are open. Remained on T piece overnight. Tolerating tube feeding. 07/11: MAXIMUM TEMPERATURE 100. Currently 98.6. Eyes are open. On ACV overnight secondary to "tachypnea and sweating". Switching back to PSV trials today. Goal is T piece during daytime, CPAP at night. 07/12: No acute events overnight. On PSV 15/5 -attempt TP up to 6 hours today. No pneumothorax on chest x-ray 07/13: Placed back on full ventilator support for tachypnea. Otherwise clinically unchanged. No fever today 07/14: Patient was on T piece yesterday evening, placed back on PSV overnight, patient mechanical ventilation this morning. Patient appears to be struggling with mechanical ventilation. Patient placed back on PSV with improvement 07/15: Patient placed back on mechanical ventilation last evening due to respiratory rate. It was indicated patient was tachypnea can the 40s. Patient on mechanical ventilation this time with respiration rate mid 20s. Chest tube still in place without any output, chest x-ray still indicating resolution of pneumothorax. 07/16: Patient seen and examined today. Patient placed back on mechanical ventilation overnight due to respiratory rate. Even on mechanical ventilation patient has respiration rate in the 30s. Patient afebrile, blood pressure stable. Continue vent weaning 07/17: Patient seen and examined. Currently afebrile. Currently on CPAP 15/5 @ 40%. Patient is awake with open mouth resting in bed in no apparent acute distress. Tolerating tube feeding. 2 bowel movements. 07/18: No neurological changes. Afebrile. 2 bowel moments. Tolerating tube feeding. We'll attempt TP trials today. On CPAP since 07/15 07/19 No events overnight. On CPAP with PS: 10, PEEP: 5 and FIO2 35%. Afebrile. On no sedation. 07/20 No events overnight. Tolerating CPAP. Afebrile. 07/21: Remains on CPAP. Attempt T piece trial today. Afebrile. One bowel movement. Tolerating tube feeding. Subjective 07/22: Afebrile. Tube hours. Tolerating tube feeding. Noted switched tracheostomy to #6 Shiley cuffed fenestrated. Neurologically unchanged Objective - Vital Signs Date Time Temp Pulse Resp B/P Pulse Ox O2 Delivery O2 Flow Rate FiO2 07/23/15 09:26 100 35 07/23/15 04:00 97.9 79 32 131/71 07/22/15 21:02 T-piece 8.00 I/O 07/22/15 07/22/1507/22/16 08:00 16:00 00:00 Intake Total 893 ml 1257 ml 1224 ml Output Total 400 ml 650 ml 500 ml Balance 493 ml 607 ml 724 ml Result Diagram: 07/22/15 0335 07/23/15 0635 Other Results Imaging Last Impressions Chest X-Ray 07/22/15 0600 Signed Impressions: Service Date/Time: Wednesday, July 22, 2015 04:17 - CONCLUSION: There has been no significant change when compared to the prior exam. John Anderson MD Tunnelled Chest Tube Removal 07/17/15 0000 Signed Impressions: Service Date/Time: Friday, July 17, 2015 00:00 - CONCLUSION: Uncomplicated chest tube removal. Erlin Mack MD Chest CT 07/11/15 0000 Signed Impressions: Service Date/Time: Saturday, July 11, 2015 09:49 - CONCLUSION: Scattered patchy densities significantly improved from previous study. Tiny anterior right basilar pneumothorax. Right-sided chest tube in good position. Néstor Matamoros MD Chest Tube Insertion 07/07/15 0000 Signed Impressions: Service Date/Time: Tuesday, July 07, 2015 17:14 - CONCLUSION: Uncomplicated right chest tube placement as above. Tai Taylor Jr., MD Head CT 06/18/151902 Signed Impressions: Service Date/Time: June 19:31 - CONCLUSION: Diffuse atrophy unchanged. No acute intracranial findings. Kush Briscoe MD Abdomen/Pelvis CT 06/18/151902 Signed Impressions: Service Date/Time: June 19:36 - CONCLUSION: 1. Chronic nonspecific urinary bladder wall thickening. Bladder collapsed with Putnam catheter in place. 2. Chronic bilateral mid to lower lung zone groundglass opacity. 3. Nonobstructing left renal calculus. 4. Distended rectum. Kush Briscoe MD Objective Remarks GENERAL: 54-year-old male, cachectic, currently resting in bed with open-mouth in no acute distress HEENT: NC/AT. PERRL. MMM dry and pink. Oropharynx without erythema or thrush NECK: No JVD/thrombus encephalopathy status post tracheostomy clean/dry and intact CARDIAC: RRR. S1/S2. No S4.. No murmurs, clicks gallops or rubs. LUNGS: Clear to auscultation bilaterally. No wheeze, rhonchi or rales. No use of accessory muscles. ABDOMEN: S/NT/ND. Bowel sounds heard in all 4 quadrants. No organomegaly or masses. No guarding/rigidity/rebound. PEG tube noted, clean and dry EXTREMITIES: No significant peripheral edema, pulses are equal bilaterally. NEUROLOGY: Patient with significant contractures of the right lower extremity, upper extremities. Muscle wasting face, bilateral upper and lower extremities Date of Insertion: June 24, 2015 A/P Assessment and Plan Neuro/Psych: Toxic metabolic Encephalopathy - chronic Parkinson's disease Cognitive disorder/Underlying dementia? Depression CT head 06/18/15: - diffuse atrophy unchanged. No acute intracranial findings Continue Sinemet 25/100 3 times a day via PEG, Seroquel 50 mg twice a day, olanzapine 5 mg a night, Klonopin 2 mg every 8 hours, Paxil 20 daily and Neurontin 300 mg twice a day. Note these medications have been slowly titrated up since admission Continue Roxanol 5 mg every 4 hours when necessary pain and fentanyl patch 50 g every 3 days for pain management. Resp: Acute on chronic respiratory failure Chronic trach, acute on chronic resp failure, pneumonia Right pneumothorax status post pigtail catheter Continue CPAP 11/10 in attempt to wean to TPs as tolerated. Pulm toilet, trach care Changes tracheostomy to a #6 Shiley fenestrated cuffed on 07/22 without complication Duo nebs 4 times a day and when necessary albuterol Pulmonology/Dr. Ag following Status post right pigtail chest tube by IR 07/06, removed 07/16. Follow chest x- ray revealed no pneumothorax Cardiac History of orthostasis History of CAD, HLP, Hypertension Continue Midodrine 5 mg twice a day Monitor HR and BP keep MAP>65mmHg GI: Malnutrition/protein calorie - moderate Status post PEG Hemorrhoids Gastroesophageal reflux disease - Tolerating Jevity 1.5 at 60 cc an hour - Currently Prevacid 30 mg per PEG tube daily for GERD - Current Colace/senna for bowel regimen. /metabolic: Nonobstructing left renal calculus Hypernatremia - Monitor renal function, I/O's. electrolytes replacement per protocol. - Place on Free H20 200ml Q12 monitor -- We'll give one quarter normal saline 2 L. Recheck sodium in a.m. ID: Candiduria ESBL positive Klebsiella/Pseudomonas pneumonia MRSA colonization - multidrug resistant UTI- ESBL02/19/15 , MRSA + 03/20/15 - Heena glabrata in urine 03/19/15 - Treated 15 days with tobramycin aerosols twice a day. - Recheck blood, sputum and urine cultures 07/06 no growth - 06/17 - blood cultures 2 - CONS/staph epi - 06/17 - sputum - ESBL positive Klebsiella/Pseudomonas - 06/17 - urine - C. glabrata/tropicalis - treated with Diflucan --Off abx monitor for signs of infections ( Fever, WBC) Endo: --SSI if needed for glycemic control Heme Anemia - Monitor CBC MSK Bilateral lower extremity Contractures Stage II DU - Wound care evaluate and treat - Continue physical therapy Prophylaxis - GI - Prevacid - DVT - SCDs/Lovenox Critical Care: The total care time was 35 minutes. Time to perform other separately billable procedures was not included in the critical care time. Chad Oleary MD Jul 23, 2015 09:56
--- NOTE | 2015-07-23 18:50 | HHI.PR ---
Subjective Remarks 54 YOWM with ChRF,Trach, multiple uti No fever On Fentanyl patch tolerates T-Tube Gets anxious. No Fever Put back on CPAP Objective Vital Signs Vital Signs Date Time Temp Pulse Resp B/P Pulse Ox O2 Delivery O2 Flow Rate FiO2 07/23/15 18:00 71 07/23/15 16:32 100 35 07/23/15 16:00 86 07/23/15 16:00 98.1 86 27 110/66 93 07/23/15 16:00 35 07/23/15 14:00 76 07/23/15 12:00 98.9 69 25 110/58 96 07/23/15 12:00 69 07/23/15 11:45 100 T-piece 35 07/23/15 10:16 100 35 07/23/15 10:00 81 07/23/15 09:35 100 T-piece 35 07/23/15 09:26 100 35 07/23/15 09:20 20 07/23/15 08:00 35 07/23/15 08:00 98.6 71 22 96/55 99 07/23/15 08:00 71 07/23/15 05:02 98 35 07/23/15 04:00 97.9 79 32 131/71 100 07/23/15 04:00 35 07/23/15 01:11 96 35 07/23/15 00:00 35 07/23/15 00:00 98.8 90 28 99/57 98 07/22/15 22:31 96 35 07/22/15 21:19 100 35 07/22/15 21:19 35 07/22/15 21:02 97 T-piece 8.00 07/22/15 20:00 97.8 91 33 154/83 98 07/22/15 20:00 84 I/O 07/22/15 07/22/15 07/22/15 07/23/15 07/23/15 07/23/15 07:00 15:00 23:00 07:00 15:00 23:00 Intake Total 893 ml 1257 ml 1224 ml 681 ml 873 ml Output Total 400 ml 650 ml 500 ml 350 ml 475 ml Balance 493 ml 607 ml 724 ml 331 ml 398 ml IV Total 295 ml 587 ml 462 ml Tube Feeding 693 ml 682 ml 437 ml 219 ml 613 ml Other 200 ml 280 ml 200 ml 260 ml Output Urine Total 400 ml 650 ml 500 ml 350 ml 475 ml # Bowel Movements 0 1 1 1 Result Diagram: 07/22/15 0335 07/23/15 0635 Objective Remarks GENERAL: MBMN male on Vent. SKIN: Warm and dry. HEAD: Normocephalic. EYES: No scleral icterus. No injection or drainage. NECK: Supple, trachea midline. No JVD or lymphadenopathy. has trach CARDIOVASCULAR: Regular rate and rhythm without murmurs, gallops, or rubs. RESPIRATORY: Breath sounds equal bilaterally. No accessory muscle use. GASTROINTESTINAL: Abdomen soft, non-tender, nondistended. PEG tube in place MUSCULOSKELETAL: No cyanosis, or edema. BACK: Nontender without obvious deformity. No CVA tenderness. A/P Assessment and Plan VDRF S/P Trach Parkinson's diasease Dementia UTI Small PTX--resolved PLAN: ABX Meropenm, Diflucan and Tobra nebs TF Add Ativan 0.5 mg tid T-Tube ACV for SOB DC Plans for NH when weaned to trach collar Severiano Ag MD Jul 23, 2015 18:50
[2015-07-23] MEDS: OLANZapine 2.5 MG TAB GT SCH (20:43)
[2015-07-23] MEDS: ENOXAPARIN SODIUM 30 MG/0.3 ML SYRINGE SQ SCH (20:47)
[2015-07-24] VITALS (17 sets, daily range): BP systolic 91–111; BP diastolic 50–64; PULSE 82–95; RESP 20–29; TEMP 97.4–98.9; O2SAT 97–100
[2015-07-24] MEDS: MORPHINE SULFATE ORAL SOLN 10 MG/0.5 ML SYRINGE PO PRN (02:26)
[2015-07-24] MEDS: RESP: SODIUM CHLORIDE 3% 4 ML NEB NEB SCH ×4 (03:17→21:35)
[2015-07-24] MEDS: RESP: ALBUTEROL 2.5 MG/IPRATROPIUM 0.5 MG NEB (SCH) NEB ×4 (03:17→21:35)
[2015-07-24] MEDS: CHLORHEXIDINE GLUCONATE 2 % 1 PACK (2 CLOTHS) TOP SCH (04:00)
[2015-07-24] MEDS: clonazePAM 1 MG TAB PO SCH ×3 (05:06→21:21)
[2015-07-24] MEDS: CARBIDOPA/LEVODOPA 25 MG/100 MG TAB GT SCH ×3 (05:06→21:21)
--- NOTE | 2015-07-24 07:32 | HHI.CCPN ---
Subjective Remarks/Hospital Course 06/17: Pt is a 54 yr man with multiple medial problems including Parkinson's disease, advanced dementia, hyponatremia, anxiety, pneumonia, GERD, cognitive disorder, and multidrug resistant UTI- ESBL02/19/15 , who resides in a [facility]. Pt by report was found by staff in [facility] to be less alert and having respiratory difficultly and fevers. Pt was brought to ED adn placed on ventilator. His workup was inclusive of labs, chest xray and ct head and abd/pelvis. WBC 16.4, +UTI, lactic acid 4, troponin ,0.02, BUN/ cre 18/ 0.76. CT head 06/18/15: diffuse atrophy unchanged. No acute intracranial findings ct abd/ pelvis with IV contrast: 06/18/15 Conclusion: 1. Chronic nonspecific urinary bladder wall thickening. Bladder collapsed with Putnam catheter in place. 2.Chronic bilateral mid to lower zone groundglass opacity. 3. Nonobstructing left renal calculus. 4. Distended rectum Pt admitted and fluid and abx ordered. 06/18: Drowsy, easily arousable. On mechanical ventilation via tracheostomy. Tachypneic. Resting tremor noted. 06/19: Drowsy, arousable. On mechanical ventilation via tracheostomy. 06/20: Drowsy, arousable. Remains on mechanical ventilation via tracheostomy. We'll repeat blood cultures, UA and urine cultures. Fluconazole IV added in view of yeast in urine. 07/06: Reconsulted as patient return to the ventilator on a right ventricular due to tachypnea. Low-grade temperatures. Tolerating tube feeding. Extremity encephalopathic demented patient with difficult neurological examination. 07/07: Status post chest tube placement by IR for right pneumothorax 07/06. Afebrile. Tolerating tube feeds. Positive BM. Currently tachypneic on the ventilator. Does not appear to be any acute distress. 07/08: Afebrile. Tolerating tube feeding. He is comfortable currently on CPAP trials 11/10. Positive BM. 07/09: Afebrile. Tolerating tube feeding. Appears comfortable on T bar. Positive BM. 07/10: Afebrile. Eyes are open. Remained on T piece overnight. Tolerating tube feeding. 07/11: MAXIMUM TEMPERATURE 100. Currently 98.6. Eyes are open. On ACV overnight secondary to "tachypnea and sweating". Switching back to PSV trials today. Goal is T piece during daytime, CPAP at night. 07/12: No acute events overnight. On PSV 15/5 -attempt TP up to 6 hours today. No pneumothorax on chest x-ray 07/13: Placed back on full ventilator support for tachypnea. Otherwise clinically unchanged. No fever today 07/14: Patient was on T piece yesterday evening, placed back on PSV overnight, patient mechanical ventilation this morning. Patient appears to be struggling with mechanical ventilation. Patient placed back on PSV with improvement 07/15: Patient placed back on mechanical ventilation last evening due to respiratory rate. It was indicated patient was tachypnea can the 40s. Patient on mechanical ventilation this time with respiration rate mid 20s. Chest tube still in place without any output, chest x-ray still indicating resolution of pneumothorax. 07/16: Patient seen and examined today. Patient placed back on mechanical ventilation overnight due to respiratory rate. Even on mechanical ventilation patient has respiration rate in the 30s. Patient afebrile, blood pressure stable. Continue vent weaning 07/17: Patient seen and examined. Currently afebrile. Currently on CPAP 15/5 @ 40%. Patient is awake with open mouth resting in bed in no apparent acute distress. Tolerating tube feeding. 2 bowel movements. 07/18: No neurological changes. Afebrile. 2 bowel moments. Tolerating tube feeding. We'll attempt TP trials today. On CPAP since 07/15 07/19 No events overnight. On CPAP with PS: 10, PEEP: 5 and FIO2 35%. Afebrile. On no sedation. 07/20 No events overnight. Tolerating CPAP. Afebrile. 07/21: Remains on CPAP. Attempt T piece trial today. Afebrile. One bowel movement. Tolerating tube feeding. 07/22: Afebrile. Positive BM. Tolerating tube feeding. Noted switched tracheostomy to #6 Shiley cuffed fenestrated. Neurologically unchanged Subjective 07/23: Afebrile. Positive BM. Tolerating tube feeding. Questionable leak in exchange trach. Place back on a rate/ACV overnight. Insufflated seems to be doing better at the present time. Will check chest x-ray. Possible he might need #6 XLT versus replacement of chronic #8 Shiley. Objective - Vital Signs Date Time Temp Pulse Resp B/P Pulse Ox O2 Delivery O2 Flow Rate FiO2 07/24/15 06:00 92 07/24/15 04:23 99 35 07/24/15 04:00 98.9 23 109/64 07/23/15 11:45 T-piece 07/22/15 21:02 8.00 I/O 07/23/15 07/23/15 07/23/15 07:59 15:59 23:59 Intake Total 681 ml 873 ml 667 ml Output Total 350 ml 475 ml 350 ml Balance 331 ml 398 ml 317 ml Result Diagram: 07/22/15 0335 07/23/15 0635 Other Results Imaging Last Impressions Chest X-Ray 07/22/15 0600 Signed Impressions: Service Date/Time: Wednesday, July 22, 2015 04:17 - CONCLUSION: There has been no significant change when compared to the prior exam. John Anderson MD Tunnelled Chest Tube Removal 07/17/15 0000 Signed Impressions: Service Date/Time: Friday, July 17, 2015 00:00 - CONCLUSION: Uncomplicated chest tube removal. Erlin Mack MD Chest CT 07/11/15 0000 Signed Impressions: Service Date/Time: Saturday, July 11, 2015 09:49 - CONCLUSION: Scattered patchy densities significantly improved from previous study. Tiny anterior right basilar pneumothorax. Right-sided chest tube in good position. Néstor Matamoros MD Chest Tube Insertion 07/07/15 0000 Signed Impressions: Service Date/Time: Tuesday, July 07, 2015 17:14 - CONCLUSION: Uncomplicated right chest tube placement as above. Tai Taylor Jr., MD Head CT 06/18/151902 Signed Impressions: Service Date/Time: June 19:31 - CONCLUSION: Diffuse atrophy unchanged. No acute intracranial findings. Kush Briscoe MD Abdomen/Pelvis CT 06/18/151902 Signed Impressions: Service Date/Time: June 19:36 - CONCLUSION: 1. Chronic nonspecific urinary bladder wall thickening. Bladder collapsed with Putnam catheter in place. 2. Chronic bilateral mid to lower lung zone groundglass opacity. 3. Nonobstructing left renal calculus. 4. Distended rectum. Kush Briscoe MD Objective Remarks GENERAL: 54-year-old male, cachectic, currently resting in bed with open-mouth in no acute distress HEENT: NC/AT. PERRL. MMM dry and pink. Oropharynx without erythema or thrush NECK: No JVD/thrombus encephalopathy status post tracheostomy clean/dry and intact CARDIAC: RRR. S1/S2. No S4.. No murmurs, clicks gallops or rubs. LUNGS: Clear to auscultation bilaterally. No wheeze, rhonchi or rales. No use of accessory muscles. ABDOMEN: S/NT/ND. Bowel sounds heard in all 4 quadrants. No organomegaly or masses. No guarding/rigidity/rebound. PEG tube noted, clean and dry EXTREMITIES: No significant peripheral edema, pulses are equal bilaterally. NEUROLOGY: Patient with significant contractures of the right lower extremity, upper extremities. Muscle wasting face, bilateral upper and lower extremities Date of Insertion: June 24, 2015 A/P Assessment and Plan Neuro/Psych: Toxic metabolic Encephalopathy - chronic Parkinson's disease Cognitive disorder/Underlying dementia? Depression CT head 06/18/15: - diffuse atrophy unchanged. No acute intracranial findings Continue Sinemet 25/100 3 times a day via PEG, Seroquel 50 mg twice a day, olanzapine 5 mg a night, Klonopin 2 mg every 8 hours, Paxil 20 daily and Neurontin 300 mg twice a day. Note these medications have been slowly titrated up since admission Continue Roxanol 5 mg every 4 hours when necessary pain and fentanyl patch 50 g every 3 days for pain management. Resp: Acute on chronic respiratory failure Chronic trach, acute on chronic resp failure, pneumonia Right pneumothorax status post pigtail catheter ACV ventilation. / Switch back to Continue CPAP 11/10 in attempt to wean to TPs as tolerated. Pulm toilet, trach care Exchanged from a #8 fenestrated Shiley cuffed tracheostomy to a #6 Shiley fenestrated cuffed on 07/22. Chest x-ray today Duo nebs 4 times a day and when necessary albuterol Pulmonology/Dr. Ag following Status post right pigtail chest tube by IR 07/06, removed 07/16. Follow chest x- ray revealed no pneumothorax Cardiac History of orthostasis History of CAD, HLP, Hypertension Continue Midodrine 5 mg twice a day Monitor HR and BP keep MAP>65mmHg GI: Malnutrition/protein calorie - moderate Status post PEG Hemorrhoids Gastroesophageal reflux disease - Tolerating Jevity 1.5 at 60 cc an hour - Currently Prevacid 30 mg per PEG tube daily for GERD - Current Colace/senna for bowel regimen. /metabolic: Nonobstructing left renal calculus Hypernatremia - resolved - Monitor renal function, I/O's. electrolytes replacement per protocol. - Continue on Free H20 200ml 3 times a day monitor - Follow BMP in a.m. ID: Candiduria ESBL positive Klebsiella/Pseudomonas pneumonia MRSA colonization - multidrug resistant UTI- ESBL02/19/15 , MRSA + 03/20/15 - Heena glabrata in urine 03/19/15 - Treated 15 days with tobramycin aerosols twice a day. - Recheck blood, sputum and urine cultures 07/06 no growth - 06/17 - blood cultures 2 - CONS/staph epi - 06/17 - sputum - ESBL positive Klebsiella/Pseudomonas - 06/17 - urine - C. glabrata/tropicalis - treated with Diflucan --Off abx monitor for signs of infections ( Fever, WBC) Endo: --SSI if needed for glycemic control Heme Anemia - Monitor CBC MSK Bilateral lower extremity Contractures Stage II DU - Wound care evaluate and treat - Continue physical therapy Prophylaxis - GI - Prevacid - DVT - SCDs/Lovenox Critical Care: The total care time was 35 minutes. Time to perform other separately billable procedures was not included in the critical care time. Chad Oleary MD Jul 24, 2015 07:32
--- NOTE | 2015-07-24 09:19 | RADRPT ---
EXAM DATE/TIME: 07/24/2015 08:33 [facility] COMPARISON: CHEST SINGLE AP, July 22, 2015, 4:17. INDICATIONS : Shortness of breath. MEDICAL HISTORY : Gastroesophageal reflux disease. Diabetes mellitus type II. Hypertension. SURGICAL HISTORY : None. ENCOUNTER: Subsequent ACUITY: 3 weeks PAIN SCORE: Non-responsive. LOCATION: Bilateral chest FINDINGS: A single view of the chest demonstrates the lungs to be symmetrically aerated without evidence of mas s, infiltrate or effusion. The cardiomediastinal contours are unremarkable. Osseous structures are intact. Tracheostomy remains in place. Reticular nodular changes noted in the upper lobes CONCLUSION: No acute disease. No significant change has occurred. Reyes Jewell MD on July 24, 2015 at 9:16 Board Certified Radiologist. This report was verified electronically.
[2015-07-24] MEDS: SENNOSIDES SYRUP 8.8 MG/5 ML CUP PO SCH (09:49)
[2015-07-24] MEDS: LACTOBACILLUS ACIDOPHILUS TAB PO SCH ×3 (09:49→18:34)
[2015-07-24] MEDS: LANSOPRAZOLE SOLUTAB 30 MG TAB NG SCH (09:49)
[2015-07-24] MEDS: MIDODRINE 5 MG TAB G-TUBE SCH ×2 (09:49→19:43)
[2015-07-24] MEDS: PARoxetine HCL 20 MG TAB G-TUBE SCH (09:49)
[2015-07-24] MEDS: QUEtiapine FUMARATE 25 MG TAB G-TUBE SCH ×2 (09:49→19:43)
[2015-07-24] MEDS: GABAPENTIN 300 MG CAP G-TUBE SCH ×2 (09:49→19:43)
[2015-07-24] MEDS: DOCUSATE SODIUM 100 MG/10 ML UDC PO SCH ×2 (09:49→19:42)
[2015-07-24] MEDS: ARTIFICIAL TEARS OPTH SOLN 15 ML BTL EACH EYE SCH ×3 (09:50→18:34)
[2015-07-24] MEDS: SODIUM CHLORIDE 0.9% FLUSH 5 ML FLUSH IVF SCH ×2 (09:50→19:42)
[2015-07-24] MEDS: CHLORHEXIDINE 0.12% (ORAL KIT) 15 ML CUP MT SCH ×2 (09:50→19:42)
--- NOTE | 2015-07-24 11:24 | HHI.PR ---
Subjective Remarks 54 YOWM with ChRF,Trach, multiple uti No fever On Fentanyl patch Gets anxious. No Fever Tolerates CPAP Objective Vital Signs Vital Signs Date Time Temp Pulse Resp B/P Pulse Ox O2 Delivery O2 Flow Rate FiO2 07/24/15 10:00 87 07/24/15 08:28 35 07/24/15 08:28 100 35 07/24/15 08:00 85 07/24/15 08:00 97.4 85 20 92/50 100 07/24/15 08:00 35 07/24/15 06:00 92 07/24/15 04:23 99 35 07/24/15 04:00 98.9 91 23 109/64 100 07/24/15 04:00 91 07/24/15 04:00 35 07/24/15 02:00 82 07/24/15 00:41 100 35 07/24/15 00:00 35 07/24/15 00:00 98.4 84 24 99/56 100 07/24/15 00:00 84 07/23/15 22:09 99 35 07/23/15 22:00 87 07/23/15 20:04 100 35 07/23/15 20:00 98.6 77 22 106/56 100 07/23/15 20:00 77 07/23/15 20:00 35 07/23/15 18:00 71 07/23/15 16:32 100 35 07/23/15 16:00 86 07/23/15 16:00 98.1 86 27 110/66 93 07/23/15 16:00 35 07/23/15 14:00 76 07/23/15 12:00 98.9 69 25 110/58 96 07/23/15 12:00 69 07/23/15 11:45 100 T-piece 35 I/O 07/23/15 07/23/15 07/23/15 07/24/15 07/24/15 07/24/15 06:59 14:59 22:59 06:59 14:59 22:59 Intake Total 681 ml 873 ml 667 ml 621 ml Output Total 350 ml 475 ml 350 ml 400 ml Balance 331 ml 398 ml 317 ml 221 ml IV Total 462 ml Tube Feeding 219 ml 613 ml 407 ml 521 ml Other 260 ml 260 ml 100 ml Output Urine Total 350 ml 475 ml 350 ml 400 ml # Bowel Movements 1 0 1 Result Diagram: 07/22/15 0335 07/23/15 0635 Objective Remarks GENERAL: MBMN male on Vent. SKIN: Warm and dry. HEAD: Normocephalic. EYES: No scleral icterus. No injection or drainage. NECK: Supple, trachea midline. No JVD or lymphadenopathy. has trach CARDIOVASCULAR: Regular rate and rhythm without murmurs, gallops, or rubs. RESPIRATORY: Breath sounds equal bilaterally. No accessory muscle use. GASTROINTESTINAL: Abdomen soft, non-tender, nondistended. PEG tube in place MUSCULOSKELETAL: No cyanosis, or edema. BACK: Nontender without obvious deformity. No CVA tenderness. A/P Assessment and Plan VDRF S/P Trach Parkinson's diasease Dementia UTI Small PTX--resolved PLAN: ABX Meropenm, Diflucan and Tobra nebs TF Add Ativan 0.5 mg tid Daily T-Tube trial ACV for SOB DC Plans for NH when weaned to trach collar Severiano Ag MD Jul 24, 2015 11:23
[2015-07-24] MEDS: FREE WATER G-TUBE SCH ×2 (14:00→21:22)
[2015-07-24] MEDS: OLANZapine 2.5 MG TAB GT SCH (19:43)
[2015-07-24] MEDS: ENOXAPARIN SODIUM 30 MG/0.3 ML SYRINGE SQ SCH (21:22)
[2015-07-25] VITALS (15 sets, daily range): BP systolic 111–127; BP diastolic 53–69; PULSE 86–100; RESP 24–40; TEMP 98–99.3; O2SAT 89–100
[2015-07-25] MEDS: CHLORHEXIDINE GLUCONATE 2 % 1 PACK (2 CLOTHS) TOP SCH (03:25)
[2015-07-25] MEDS: RESP: ALBUTEROL 2.5 MG/IPRATROPIUM 0.5 MG NEB (SCH) NEB ×4 (04:43→21:31)
[2015-07-25] MEDS: RESP: SODIUM CHLORIDE 3% 4 ML NEB NEB SCH ×4 (04:44→21:58)
[2015-07-25] MEDS: FREE WATER G-TUBE SCH ×3 (05:09→22:00)
[2015-07-25] MEDS: clonazePAM 1 MG TAB PO SCH ×3 (05:09→22:00)
[2015-07-25] MEDS: CARBIDOPA/LEVODOPA 25 MG/100 MG TAB GT SCH ×3 (05:09→22:00)
[2015-07-25 06:33] LABS: HEMATOCRIT 33.3 % (39.0-51.0); MEAN CELL VOLUME 90.8 FL (80.0-100.0); MEAN CORPUSCULAR HEMOGLOBIN 29.7 PG (27.0-34.0); MEAN CORPUSCULAR HGB CONC 32.7 % (32.0-36.0); PLATELET COUNT 163 TH/MM3 (150-450); RED BLOOD COUNT 3.67 MIL/MM3 (4.50-5.90); REVIEW FLAG FINAL
[2015-07-25 06:54] LABS: BICARBONATE 35.5 MEQ/L (21.0-32.0); POTASSIUM 4.1 MEQ/L (3.5-5.1)
--- NOTE | 2015-07-25 08:33 | RADRPT ---
EXAM DATE/TIME: 07/25/2015 07:51 [facility] COMPARISON: CHEST SINGLE AP, July 24, 2015, 8:33. INDICATIONS : Respiratory Failure. MEDICAL HISTORY : Gastroesophageal reflux disease. Diabetes mellitus type II. Hypertension. SURGICAL HISTORY : None. ENCOUNTER: Subsequent ACUITY: 3 weeks PAIN SCORE: Non-responsive. LOCATION: Bilateral chest FINDINGS: Tracheostomy tube is noted. There is hyperinflation. The lungs are clear. Heart size normal. Osseous structures are intact. CONCLUSION: No acute disease. Jeramie Manjarrez MD on July 25, 2015 at 8:31 Board Certified Radiologist. This report was verified electronically.
[2015-07-25] MEDS: DOCUSATE SODIUM 100 MG/10 ML UDC PO SCH ×2 (10:13→20:59)
[2015-07-25] MEDS: LANSOPRAZOLE SOLUTAB 30 MG TAB NG SCH (10:13)
[2015-07-25] MEDS: GABAPENTIN 300 MG CAP G-TUBE SCH ×3 (10:13→21:00)
[2015-07-25] MEDS: SENNOSIDES SYRUP 8.8 MG/5 ML CUP PO SCH (10:13)
[2015-07-25] MEDS: LACTOBACILLUS ACIDOPHILUS TAB PO SCH ×3 (10:13→18:33)
[2015-07-25] MEDS: QUEtiapine FUMARATE 25 MG TAB G-TUBE SCH ×3 (10:14→21:00)
[2015-07-25] MEDS: MIDODRINE 5 MG TAB G-TUBE SCH ×3 (10:14→21:00)
[2015-07-25] MEDS: PARoxetine HCL 20 MG TAB G-TUBE SCH (10:14)
[2015-07-25] MEDS: ARTIFICIAL TEARS OPTH SOLN 15 ML BTL EACH EYE SCH ×3 (10:14→18:33)
[2015-07-25] MEDS: CHLORHEXIDINE 0.12% (ORAL KIT) 15 ML CUP MT SCH ×2 (10:15→21:00)
[2015-07-25] MEDS: SODIUM CHLORIDE 0.9% FLUSH 5 ML FLUSH IVF SCH ×2 (10:15→22:48)
--- NOTE | 2015-07-25 14:43 | HHI.CCPN ---
Subjective Remarks/Hospital Course 06/17: Pt is a 54 yr man with multiple medial problems including Parkinson's disease, advanced dementia, hyponatremia, anxiety, pneumonia, GERD, cognitive disorder, and multidrug resistant UTI- ESBL02/19/15 , who resides in a retirement. Pt by report was found by staff in retirement to be less alert and having respiratory difficultly and fevers. Pt was brought to ED adn placed on ventilator. His workup was inclusive of labs, chest xray and ct head and abd/pelvis. WBC 16.4, +UTI, lactic acid 4, troponin ,0.02, BUN/ cre 18/ 0.76. CT head 06/18/15: diffuse atrophy unchanged. No acute intracranial findings ct abd/ pelvis with IV contrast: 06/18/15 Conclusion: 1. Chronic nonspecific urinary bladder wall thickening. Bladder collapsed with Putnam catheter in place. 2.Chronic bilateral mid to lower zone groundglass opacity. 3. Nonobstructing left renal calculus. 4. Distended rectum Pt admitted and fluid and abx ordered. 06/18: Drowsy, easily arousable. On mechanical ventilation via tracheostomy. Tachypneic. Resting tremor noted. 06/19: Drowsy, arousable. On mechanical ventilation via tracheostomy. 06/20: Drowsy, arousable. Remains on mechanical ventilation via tracheostomy. We'll repeat blood cultures, UA and urine cultures. Fluconazole IV added in view of yeast in urine. 07/06: Reconsulted as patient return to the ventilator on a right ventricular due to tachypnea. Low-grade temperatures. Tolerating tube feeding. Extremity encephalopathic demented patient with difficult neurological examination. 07/07: Status post chest tube placement by IR for right pneumothorax 07/06. Afebrile. Tolerating tube feeds. Positive BM. Currently tachypneic on the ventilator. Does not appear to be any acute distress. 07/08: Afebrile. Tolerating tube feeding. He is comfortable currently on CPAP trials 11/10. Positive BM. 07/09: Afebrile. Tolerating tube feeding. Appears comfortable on T bar. Positive BM. 07/10: Afebrile. Eyes are open. Remained on T piece overnight. Tolerating tube feeding. 07/11: MAXIMUM TEMPERATURE 100. Currently 98.6. Eyes are open. On ACV overnight secondary to "tachypnea and sweating". Switching back to PSV trials today. Goal is T piece during daytime, CPAP at night. 07/12: No acute events overnight. On PSV 15/5 -attempt TP up to 6 hours today. No pneumothorax on chest x-ray 07/13: Placed back on full ventilator support for tachypnea. Otherwise clinically unchanged. No fever today 07/14: Patient was on T piece yesterday evening, placed back on PSV overnight, patient mechanical ventilation this morning. Patient appears to be struggling with mechanical ventilation. Patient placed back on PSV with improvement 07/15: Patient placed back on mechanical ventilation last evening due to respiratory rate. It was indicated patient was tachypnea can the 40s. Patient on mechanical ventilation this time with respiration rate mid 20s. Chest tube still in place without any output, chest x-ray still indicating resolution of pneumothorax. 07/16: Patient seen and examined today. Patient placed back on mechanical ventilation overnight due to respiratory rate. Even on mechanical ventilation patient has respiration rate in the 30s. Patient afebrile, blood pressure stable. Continue vent weaning 07/17: Patient seen and examined. Currently afebrile. Currently on CPAP 15/5 @ 40%. Patient is awake with open mouth resting in bed in no apparent acute distress. Tolerating tube feeding. 2 bowel movements. 07/18: No neurological changes. Afebrile. 2 bowel moments. Tolerating tube feeding. We'll attempt TP trials today. On CPAP since 07/15 07/19 No events overnight. On CPAP with PS: 10, PEEP: 5 and FIO2 35%. Afebrile. On no sedation. 07/20 No events overnight. Tolerating CPAP. Afebrile. 07/21: Remains on CPAP. Attempt T piece trial today. Afebrile. One bowel movement. Tolerating tube feeding. 07/22: Afebrile. Positive BM. Tolerating tube feeding. Noted switched tracheostomy to #6 Shiley cuffed fenestrated. Neurologically unchanged 07/23: Afebrile. Positive BM. Tolerating tube feeding. Questionable leak in exchange trach. Place back on a rate/ACV overnight. Insufflated seems to be doing better at the present time. Will check chest x-ray. Possible he might need #6 XLT versus replacement of chronic #8 Shiley. Subjective 07/24: Tolerating TP today, RR in low 30s patient appears comfortable. No acute events overnight Objective - Vital Signs Date Time Temp Pulse Resp B/P Pulse Ox O2 Delivery O2 Flow Rate FiO2 07/25/15 12:00 97 07/25/15 12:00 98.4 27 116/63 99 07/25/15 08:01 T-piece 6.00 35 I/O 07/24/15 07/24/15 07/25/15 08:00 16:00 00:00 Intake Total 621 ml 945 ml 731 ml Output Total 400 ml 525 ml 50 ml Balance 221 ml 420 ml 681 ml Result Diagram: 07/25/15 0533 07/25/15 0533 Other Results Imaging Last Impressions Chest X-Ray 07/22/15 0600 Signed Impressions: Service Date/Time: Wednesday, July 22, 2015 04:17 - CONCLUSION: There has been no significant change when compared to the prior exam. John Anderson MD Tunnelled Chest Tube Removal 07/17/15 0000 Signed Impressions: Service Date/Time: Friday, July 17, 2015 00:00 - CONCLUSION: Uncomplicated chest tube removal. Erlin Mack MD Chest CT 07/11/15 0000 Signed Impressions: Service Date/Time: Saturday, July 11, 2015 09:49 - CONCLUSION: Scattered patchy densities significantly improved from previous study. Tiny anterior right basilar pneumothorax. Right-sided chest tube in good position. Néstor Matamoros MD Chest Tube Insertion 07/07/15 0000 Signed Impressions: Service Date/Time: Tuesday, July 07, 2015 17:14 - CONCLUSION: Uncomplicated right chest tube placement as above. Tai Taylor Jr., MD Head CT 06/18/151902 Signed Impressions: Service Date/Time: June 19:31 - CONCLUSION: Diffuse atrophy unchanged. No acute intracranial findings. Kush Briscoe MD Abdomen/Pelvis CT 06/18/151902 Signed Impressions: Service Date/Time: June 19:36 - CONCLUSION: 1. Chronic nonspecific urinary bladder wall thickening. Bladder collapsed with Putnam catheter in place. 2. Chronic bilateral mid to lower lung zone groundglass opacity. 3. Nonobstructing left renal calculus. 4. Distended rectum. Kush Briscoe MD Objective Remarks GENERAL: 54-year-old male, cachectic, currently on TP HEENT: NC/AT. PERRL. MMM dry and pink. Oropharynx without erythema or thrush NECK: No JVD/thrombus encephalopathy status post tracheostomy clean/dry and intact CARDIAC: RRR. S1/S2. No S4.. No murmurs, clicks gallops or rubs. LUNGS: Clear to auscultation bilaterally. No wheeze, rhonchi or rales. No use of accessory muscles. ABDOMEN: S/NT/ND. Bowel sounds heard in all 4 quadrants. No organomegaly or masses. No guarding/rigidity/rebound. PEG tube noted, clean and dry EXTREMITIES: No significant peripheral edema, pulses are equal bilaterally. NEUROLOGY: Patient with significant contractures of the right lower extremity, upper extremities. Muscle wasting face, bilateral upper and lower extremities Date of Insertion: June 24, 2015 A/P Assessment and Plan Neuro/Psych: Toxic metabolic Encephalopathy - chronic Parkinson's disease Cognitive disorder/Underlying dementia Depression CT head 06/18/15: - diffuse atrophy unchanged. No acute intracranial findings Continue Sinemet 25/100 3 times a day via PEG, Seroquel 50 mg twice a day, olanzapine 5 mg a night, Klonopin 2 mg every 8 hours, Paxil 20 daily and Neurontin 300 mg twice a day. These medications have been slowly titrated up since admission Continue Roxanol 5 mg every 4 hours when necessary pain and fentanyl patch 50 g every 3 days for pain management. Resp: Acute on chronic respiratory failure Chronic trach, Pneumonia Right pneumothorax status post pigtail catheter TP last 24 hours. Continue TP 29/08 as tolerated Pulm toilet, trach care. Exchanged from a #8 fenestrated Shiley cuffed tracheostomy to a #6 Shiley fenestrated cuffed on 07/22. Duo nebs 4 times a day and when necessary albuterol. Pulmonology/Dr. Ag following Status post right pigtail chest tube by IR 07/06, removed 07/16. Follow chest x- ray revealed no pneumothorax Cardiac History of orthostasis History of CAD, HLP, Hypertension Continue Midodrine 5 mg twice a day Monitor HR and BP keep MAP>65mmHg GI: Malnutrition/protein calorie - moderate Status post PEG Hemorrhoids Gastroesophageal reflux disease - Tolerating Jevity 1.5 at 60 cc an hour - Currently Prevacid 30 mg per PEG tube daily for GERD - Current Colace/senna for bowel regimen. /metabolic: Nonobstructing left renal calculus Hypernatremia - resolved - Monitor renal function, I/O's. electrolytes replacement per protocol. - Continue on Free H20 200ml 3 times a day monitor - Follow BMP in a.m. ID: Candiduria ESBL positive Klebsiella/Pseudomonas pneumonia MRSA colonization - Multidrug resistant UTI- ESBL 02/19/15 , MRSA + 03/20/15 - Heena glabrata in urine 03/19/15 - Treated 15 days with tobramycin aerosols twice a day. - Recheck blood, sputum and urine cultures 07/06 no growth - 06/17 - blood cultures 2 - CONS/staph epi - 06/17 - sputum - ESBL positive Klebsiella/Pseudomonas - 06/17 - urine - C. glabrata/tropicalis - treated with Diflucan --Abx monitor for signs of infections ( Fever, WBC) Endo: --SSI if needed for glycemic control Heme Anemia - Monitor CBC MSK Bilateral lower extremity Contractures Stage II DU - Wound care evaluate and treat - Continue physical therapy Prophylaxis - GI - Prevacid - DVT - SCDs/Lovenox Critical Care: Level 3. Time to perform other separately billable procedures was not included in the critical care time. Hilario Kern MD Jul 25, 2015 14:43
[2015-07-25] MEDS: OLANZapine 2.5 MG TAB GT SCH (20:59)
[2015-07-25] MEDS: ENOXAPARIN SODIUM 30 MG/0.3 ML SYRINGE SQ SCH (22:46)
[2015-07-26] VITALS (14 sets, daily range): BP systolic 118–141; BP diastolic 64–94; PULSE 78–100; RESP 28–36; TEMP 98–99.7; O2SAT 91–99
[2015-07-26] MEDS: CHLORHEXIDINE GLUCONATE 2 % 1 PACK (2 CLOTHS) TOP SCH (04:00)
[2015-07-26] MEDS: RESP: ALBUTEROL 2.5 MG/IPRATROPIUM 0.5 MG NEB (SCH) NEB ×4 (04:17→22:02)
[2015-07-26] MEDS: FREE WATER G-TUBE SCH ×3 (05:49→21:29)
[2015-07-26] MEDS: clonazePAM 1 MG TAB PO SCH ×3 (05:50→21:28)
[2015-07-26] MEDS: CARBIDOPA/LEVODOPA 25 MG/100 MG TAB GT SCH ×3 (05:50→21:28)
[2015-07-26] MEDS: RESP: SODIUM CHLORIDE 3% 4 ML NEB NEB SCH ×3 (07:55→22:02)
[2015-07-26] MEDS: REMOVE OLD PATCH TD SCH (08:00)
[2015-07-26] MEDS: CHLORHEXIDINE 0.12% (ORAL KIT) 15 ML CUP MT SCH ×2 (08:00→21:29)
[2015-07-26] MEDS: fentaNYL 50 MCG/HR PATCH TD SCH (08:32)
[2015-07-26] MEDS: LACTOBACILLUS ACIDOPHILUS TAB PO SCH ×3 (09:00→18:00)
[2015-07-26] MEDS: MIDODRINE 5 MG TAB G-TUBE SCH ×2 (09:00→21:28)
[2015-07-26] MEDS: QUEtiapine FUMARATE 25 MG TAB G-TUBE SCH ×2 (09:00→21:29)
[2015-07-26] MEDS: SODIUM CHLORIDE 0.9% FLUSH 5 ML FLUSH IVF SCH ×2 (09:00→21:29)
[2015-07-26] MEDS: SENNOSIDES SYRUP 8.8 MG/5 ML CUP PO SCH (09:00)
[2015-07-26] MEDS: DOCUSATE SODIUM 100 MG/10 ML UDC PO SCH ×2 (09:00→21:27)
[2015-07-26] MEDS: PARoxetine HCL 20 MG TAB G-TUBE SCH (09:00)
[2015-07-26] MEDS: GABAPENTIN 300 MG CAP G-TUBE SCH ×2 (09:00→21:28)
[2015-07-26] MEDS: ARTIFICIAL TEARS OPTH SOLN 15 ML BTL EACH EYE SCH ×3 (09:00→18:00)
[2015-07-26] MEDS: LANSOPRAZOLE SOLUTAB 30 MG TAB NG SCH (09:00)
--- NOTE | 2015-07-26 10:03 | HHI.CCPN ---
Subjective Remarks/Hospital Course 06/17: Pt is a 54 yr man with multiple medial problems including Parkinson's disease, advanced dementia, hyponatremia, anxiety, pneumonia, GERD, cognitive disorder, and multidrug resistant UTI- ESBL02/19/15 , who resides in a residential. Pt by report was found by staff in residential to be less alert and having respiratory difficultly and fevers. Pt was brought to ED adn placed on ventilator. His workup was inclusive of labs, chest xray and ct head and abd/pelvis. WBC 16.4, +UTI, lactic acid 4, troponin ,0.02, BUN/ cre 18/ 0.76. CT head 06/18/15: diffuse atrophy unchanged. No acute intracranial findings ct abd/ pelvis with IV contrast: 06/18/15 Conclusion: 1. Chronic nonspecific urinary bladder wall thickening. Bladder collapsed with Putnam catheter in place. 2.Chronic bilateral mid to lower zone groundglass opacity. 3. Nonobstructing left renal calculus. 4. Distended rectum Pt admitted and fluid and abx ordered. 06/18: Drowsy, easily arousable. On mechanical ventilation via tracheostomy. Tachypneic. Resting tremor noted. 06/19: Drowsy, arousable. On mechanical ventilation via tracheostomy. 06/20: Drowsy, arousable. Remains on mechanical ventilation via tracheostomy. We'll repeat blood cultures, UA and urine cultures. Fluconazole IV added in view of yeast in urine. 07/06: Reconsulted as patient return to the ventilator on a right ventricular due to tachypnea. Low-grade temperatures. Tolerating tube feeding. Extremity encephalopathic demented patient with difficult neurological examination. 07/07: Status post chest tube placement by IR for right pneumothorax 07/06. Afebrile. Tolerating tube feeds. Positive BM. Currently tachypneic on the ventilator. Does not appear to be any acute distress. 07/08: Afebrile. Tolerating tube feeding. He is comfortable currently on CPAP trials 11/10. Positive BM. 07/09: Afebrile. Tolerating tube feeding. Appears comfortable on T bar. Positive BM. 07/10: Afebrile. Eyes are open. Remained on T piece overnight. Tolerating tube feeding. 07/11: MAXIMUM TEMPERATURE 100. Currently 98.6. Eyes are open. On ACV overnight secondary to "tachypnea and sweating". Switching back to PSV trials today. Goal is T piece during daytime, CPAP at night. 07/12: No acute events overnight. On PSV 15/5 -attempt TP up to 6 hours today. No pneumothorax on chest x-ray 07/13: Placed back on full ventilator support for tachypnea. Otherwise clinically unchanged. No fever today 07/14: Patient was on T piece yesterday evening, placed back on PSV overnight, patient mechanical ventilation this morning. Patient appears to be struggling with mechanical ventilation. Patient placed back on PSV with improvement 07/15: Patient placed back on mechanical ventilation last evening due to respiratory rate. It was indicated patient was tachypnea can the 40s. Patient on mechanical ventilation this time with respiration rate mid 20s. Chest tube still in place without any output, chest x-ray still indicating resolution of pneumothorax. 07/16: Patient seen and examined today. Patient placed back on mechanical ventilation overnight due to respiratory rate. Even on mechanical ventilation patient has respiration rate in the 30s. Patient afebrile, blood pressure stable. Continue vent weaning 07/17: Patient seen and examined. Currently afebrile. Currently on CPAP 15/5 @ 40%. Patient is awake with open mouth resting in bed in no apparent acute distress. Tolerating tube feeding. 2 bowel movements. 07/18: No neurological changes. Afebrile. 2 bowel moments. Tolerating tube feeding. We'll attempt TP trials today. On CPAP since 07/15 07/19 No events overnight. On CPAP with PS: 10, PEEP: 5 and FIO2 35%. Afebrile. On no sedation. 07/20 No events overnight. Tolerating CPAP. Afebrile. 07/21: Remains on CPAP. Attempt T piece trial today. Afebrile. One bowel movement. Tolerating tube feeding. 07/22: Afebrile. Positive BM. Tolerating tube feeding. Noted switched tracheostomy to #6 Shiley cuffed fenestrated. Neurologically unchanged 07/23: Afebrile. Positive BM. Tolerating tube feeding. Questionable leak in exchange trach. Place back on a rate/ACV overnight. Insufflated seems to be doing better at the present time. Will check chest x-ray. Possible he might need #6 XLT versus replacement of chronic #8 Shiley. 07/24: Tolerating TP today, RR in low 30s patient appears comfortable. No acute events overnight Subjective 07/25: Remains off the ventilator more than 36 hours now. Intermittently tachypneic probably breathing. Chest x-ray was clear yesterday. No acute events reported overnight. PEG not functioning per RN Objective - Vital Signs Date Time Temp Pulse Resp B/P Pulse Ox O2 Delivery O2 Flow Rate FiO2 07/26/15 07:54 99 T-piece 40 07/26/15 06:00 96 07/26/15 04:00 99.4 32 133/73 07/25/15 22:01 6.00 I/O 07/25/15 07/25/15 07/26/15 08:00 16:00 00:00 Intake Total 490 ml 831 ml 10 ml Output Total 500 ml 900 ml 300 ml Balance -10 ml -69 ml -290 ml Result Diagram: 07/25/15 0533 07/25/15 0533 Other Results Imaging Last Impressions Chest X-Ray 07/22/15 0600 Signed Impressions: Service Date/Time: Wednesday, July 22, 2015 04:17 - CONCLUSION: There has been no significant change when compared to the prior exam. John Anderson MD Tunnelled Chest Tube Removal 07/17/15 0000 Signed Impressions: Service Date/Time: Friday, July 17, 2015 00:00 - CONCLUSION: Uncomplicated chest tube removal. Erlin Mack MD Chest CT 07/11/15 0000 Signed Impressions: Service Date/Time: Saturday, July 11, 2015 09:49 - CONCLUSION: Scattered patchy densities significantly improved from previous study. Tiny anterior right basilar pneumothorax. Right-sided chest tube in good position. Néstor Matamoros MD Chest Tube Insertion 07/07/15 0000 Signed Impressions: Service Date/Time: Tuesday, July 07, 2015 17:14 - CONCLUSION: Uncomplicated right chest tube placement as above. Tai Taylor Jr., MD Head CT 06/18/151902 Signed Impressions: Service Date/Time: June 19:31 - CONCLUSION: Diffuse atrophy unchanged. No acute intracranial findings. Kush Briscoe MD Abdomen/Pelvis CT 06/18/151902 Signed Impressions: Service Date/Time: June 19:36 - CONCLUSION: 1. Chronic nonspecific urinary bladder wall thickening. Bladder collapsed with Putnam catheter in place. 2. Chronic bilateral mid to lower lung zone groundglass opacity. 3. Nonobstructing left renal calculus. 4. Distended rectum. Kush Briscoe MD Objective Remarks GENERAL: 54-year-old male, cachectic, currently on TP for more than 24 hours HEENT: NC/AT. PERRL. MMM dry and pink. Oropharynx without erythema or thrush NECK: No JVD/thrombus encephalopathy status post tracheostomy clean/dry and intact CARDIAC: RRR. S1/S2. No S4. No murmurs, clicks gallops or rubs. LUNGS: Clear to auscultation bilaterally. No wheeze, rhonchi or rales. No use of accessory muscles. ABDOMEN: S/NT/ND. Bowel sounds heard in all 4 quadrants. No organomegaly or masses. No guarding/rigidity/rebound. PEG not functioning per RN EXTREMITIES: No significant peripheral edema, pulses are equal bilaterally. NEUROLOGY: Patient with significant contractures of the right lower extremity, upper extremities. Eyes open spontaneously. Muscle wasting face, bilateral upper and lower extremities Date of Insertion: June 24, 2015 A/P Assessment and Plan Neuro/Psych: Toxic metabolic Encephalopathy - chronic Parkinson's disease Cognitive disorder/Underlying dementia Depression CT head 06/18/15: - diffuse atrophy unchanged. No acute intracranial findings Continue Sinemet 25/100 3 times a day via PEG, Seroquel 50 mg twice a day, olanzapine 5 mg a night, Klonopin 2 mg every 8 hours, Paxil 20 daily and Neurontin 300 mg twice a day. These medications have been slowly titrated up since admission Continue Roxanol 5 mg every 4 hours when necessary pain and fentanyl patch 50 g every 3 days for pain management. Resp: Acute on chronic respiratory failure Chronic trach, Pneumonia Right pneumothorax status post pigtail catheter TP last 36 hours. Continue TP 24/ as tolerated. Pulmonary Dr. Cummings. following Pulm toilet, trach care. Exchanged from a #8 fenestrated Shiley cuffed tracheostomy to a #6 Shiley fenestrated cuffed on 07/22. Duo nebs 4 times a day and when necessary albuterol. Status post right pigtail chest tube by IR 07/06, removed 07/16. Follow chest x- ray revealed no pneumothorax Cardiac History of orthostasis History of CAD, HLP, Hypertension Continue Midodrine 5 mg twice a day Monitor HR and BP keep MAP>65mmHg GI: Malnutrition/protein calorie - moderate Status post PEG Hemorrhoids Gastroesophageal reflux disease - Tolerating Jevity 1.5 at 60 cc an hour. Now there is PEG tube malfunction. Consult GI - Currently Prevacid 30 mg per PEG tube daily for GERD - Current Colace/senna for bowel regimen. /metabolic: Nonobstructing left renal calculus Hypernatremia - resolved - Monitor renal function, I/O's. electrolytes replacement per protocol. - Continue on Free H20 200ml 3 times a day monitor - Follow BMP in a.m. 07/26 ID: Candiduria ESBL positive Klebsiella/Pseudomonas pneumonia MRSA colonization - Multidrug resistant UTI- ESBL 02/19/15 , MRSA + 03/20/15 - Heena glabrata in urine 03/19/15 - Recheck blood, sputum and urine cultures 07/06 no growth - 06/17 - blood cultures 2 - CONS/staph epi - 06/17 - sputum - ESBL positive Klebsiella/Pseudomonas Treated 15 days with tobramycin aerosols twice a day. - 06/17 - urine - C. glabrata/tropicalis - treated with Diflucan --Abx monitor for signs of infections ( Fever, WBC) Endo: --SSI if needed for glycemic control Heme Anemia - Monitor CBC MSK Bilateral lower extremity Contractures Stage II DU - Wound care evaluate and treat - Continue physical therapy Prophylaxis - GI - Prevacid - DVT - SCDs/Lovenox Critical Care: Level 3. Time to perform other separately billable procedures was not included in the critical care time. [facility] Dr. Queen to assume care in Hilario Kern MD Jul 26, 2015 10:03
--- NOTE | 2015-07-26 13:48 | OTSOAPIP ---
TIME SESSION COMPLETED: AM TREATMENT TIME: 0 MINS. CHART REVIEWED. ATTEMPTED TO SEE PATIENT HOWEVER PATIENT WAS RECEIVING HYGIENE CARE. PLAN: WILL SEE PATIENT WHEN ABLE OR NEXT TREATMENT DAY Therapist: ZA RODRÍGUEZ/Patricia Signature on file
--- NOTE | 2015-07-26 15:23 | MB ---
cc: RODRIGUE CUNNINGHAM M.D. DATE OF CONSULTATION: 07/26/2015. REASON FOR CONSULTATION: Malfunctioning PEG. REFERRING PHYSICIAN: Dr. Hilario Kern. HISTORY OF PRESENT ILLNESS: Mr. Foreman is an unfortunate 54-year-old gentleman with history of advanced dementia who had gastrostomy tube which seems to be clogged. The gastrostomy tube was placed in [facility] by interventional radiology in March of 2015, unclear why that was not placed at the GI and not sure if it was a technical problem or not; the information is not available. It is definitely unusual to be placed by them unless there is a problem that would contraindicate endoscopic placement. I tried to flush it at the bedside. This cannot be flushed at this point. I recommend insertion of the NG tube today if medication needs to be provided until the PEG-tube is flushed and I will consult interventional radiology for PEG-tube placement. PAST MEDICAL HISTORY: 1. Multiple infections. 2. Dementia. 3. Encephalopathy. 4. Hypertension. 5. Hemorrhoids. 6. C. Difficile. 7. History of MRSA. PAST SURGICAL HISTORY: 1. Hemorrhoidal surgery. 2. ENT surgeries. 3. Tracheostomy. 4. PEG-tube placement. ALLERGIES: NO KNOWN ALLERGIES. MEDICATIONS: 1. Albuterol. 2. Zocor. 3. Zyprexa. 4. Klonopin. 5. Prevacid. 6. Duragesic patch. 7. Colace. 8. Morphine. 9. Gabapentin. 10. Lactinex. 11. Paxil. 12. Lovenox. 13. Potassium chloride. 14. Magnesium oxide. FAMILY HISTORY: Information not available. SOCIAL HISTORY: Information not available. REVIEW OF SYSTEMS: A review of systems unfortunately cannot be performed as the patient is noncommunicative and ventilator-dependent. PHYSICAL EXAMINATION: GENERAL: On clinical examination, he is sitting in bed on the ventilator in no acute distress. Flexures. VITAL SIGNS: Temperature is 98, pulse 86, blood pressure 133/87, respirations 32. Saturation 94%. HEAD, EYES, EARS, NOSE, THROAT: Pupils equal, round and reactive to light and accommodation. CHEST: Bilateral crepitations. ABDOMEN: Abdomen soft. PEG-tube in place and cannot be flushed. SACK CLEANER: He is noncommunicative. Flexion contractures. LABORATORY STUDIES: His hemoglobin is 10.9 which was has been stable. White count 10. PT/INR normal. BUN 22, creatinine 0.65. Liver enzymes done in the past were normal. IMAGING STUDIES: The patient had a CT abdomen and pelvis done on 06/18/2015 and that showed chronic nonspecific urinary bladder wall thickening, bladder prolapse, nonobstructive left renal calculi, distended rectum. I was able to access the report from [facility]. He had the gastrostomy tube placed by interventional radiology in March of 2015, unclear what that was done by them and not by GI. As I already mentioned, this is done only when endoscopic placement cannot be performed. RECOMMENDATIONS: Clogged PEG-tube. Consult interventional radiology in the morning for replacement. If medication needs to be administered today, insert nasogastric tube. Supportive care. Call us if needed. MD PAVAN CeeB/JCWen /2:56 PM /3:14 PM
[2015-07-26] MEDS: ENOXAPARIN SODIUM 30 MG/0.3 ML SYRINGE SQ SCH (21:27)
[2015-07-26] MEDS: OLANZapine 2.5 MG TAB GT SCH (21:28)
[2015-07-27] VITALS (14 sets, daily range): BP systolic 94–139; BP diastolic 60–85; PULSE 75–105; RESP 20–26; TEMP 98–98.6; O2SAT 92–96
[2015-07-27] MEDS: RESP: SODIUM CHLORIDE 3% 4 ML NEB NEB SCH ×4 (04:03→21:58)
[2015-07-27] MEDS: RESP: ALBUTEROL 2.5 MG/IPRATROPIUM 0.5 MG NEB (SCH) NEB ×4 (04:03→21:58)
[2015-07-27] MEDS: CHLORHEXIDINE GLUCONATE 2 % 1 PACK (2 CLOTHS) TOP SCH (04:10)
[2015-07-27] MEDS: clonazePAM 1 MG TAB PO SCH ×3 (05:09→21:34)
[2015-07-27] MEDS: FREE WATER G-TUBE SCH ×3 (05:09→21:35)
[2015-07-27] MEDS: CARBIDOPA/LEVODOPA 25 MG/100 MG TAB GT SCH ×3 (05:09→21:34)
[2015-07-27 06:29] LABS: AUTOMATED NEUTROPHIL # 6.5 TH/MM3 (1.8-7.7); BASOPHIL # 0.1 TH/MM3 (0-0.2); BASOPHIL % 0.6 % (0.0-2.0); EOSINOPHIL # 0.4 TH/MM3 (0-0.4); EOSINOPHIL % 3.7 % (0.0-4.0); HEMATOCRIT 35.4 % (39.0-51.0); HEMO FLAGS DIFF FINAL; LYMPH % 22.2 % (9.0-44.0); LYMPHOCYTE # 2.2 TH/MM3 (1.0-4.8); MEAN CORPUSCULAR HEMOGLOBIN 28.9 PG (27.0-34.0); MEAN CORPUSCULAR HGB CONC 31.8 % (32.0-36.0); MONO % 7.8 % (0.0-8.0); NEUT % 65.7 % (16.0-70.0); PLATELET COUNT 208 TH/MM3 (150-450); RED BLOOD COUNT 3.89 MIL/MM3 (4.50-5.90); RED CELL DISTRIBUTION WIDTH 13.1 % (11.6-17.2); WHITE BLOOD COUNT 9.9 TH/MM3 (4.0-11.0)
[2015-07-27 06:37] LABS: ANION GAP 11 MEQ/L (5-15); AST (GOT) 21 U/L (15-37); BICARBONATE 30.4 MEQ/L (21.0-32.0); CHLORIDE 106 MEQ/L (98-107); GLOMERULAR FILTRATION RATE 96 ML/MIN (>89); POTASSIUM 3.7 MEQ/L (3.5-5.1); SODIUM (NA) 147 MEQ/L (136-145)
[2015-07-27 06:45] LABS: ALKALINE PHOSPHATASE 71 U/L (45-117); ALT (GPT) 10 U/L (12-78); BLOOD UREA NITROGEN 27 MG/DL (7-18); TOTAL BILIRUBIN ADULT 0.4 MG/DL (0.2-1.0)
[2015-07-27] MEDS: CHLORHEXIDINE 0.12% (ORAL KIT) 15 ML CUP MT SCH ×2 (08:00→21:35)
[2015-07-27] MEDS: SENNOSIDES SYRUP 8.8 MG/5 ML CUP PO SCH (09:00)
[2015-07-27] MEDS: GABAPENTIN 300 MG CAP G-TUBE SCH ×2 (09:00→21:35)
[2015-07-27] MEDS: LANSOPRAZOLE SOLUTAB 30 MG TAB NG SCH (09:00)
[2015-07-27] MEDS: DOCUSATE SODIUM 100 MG/10 ML UDC PO SCH ×2 (09:00→21:00)
[2015-07-27] MEDS: SODIUM CHLORIDE 0.9% FLUSH 5 ML FLUSH IVF SCH ×2 (09:00→21:34)
[2015-07-27] MEDS: ARTIFICIAL TEARS OPTH SOLN 15 ML BTL EACH EYE SCH ×3 (09:00→18:26)
[2015-07-27] MEDS: QUEtiapine FUMARATE 25 MG TAB G-TUBE SCH ×2 (09:00→21:35)
[2015-07-27] MEDS: LACTOBACILLUS ACIDOPHILUS TAB PO SCH ×3 (09:00→18:26)
[2015-07-27] MEDS: MIDODRINE 5 MG TAB G-TUBE SCH ×2 (09:00→21:35)
[2015-07-27] MEDS: PARoxetine HCL 20 MG TAB G-TUBE SCH (09:00)
[2015-07-27] MEDS ORDERED: IOHEXOL 350 MG/ML 50 ML BTL (for RAD DIAG) G-TUBE ONE (14:51)
--- NOTE | 2015-07-27 15:36 | HHI.PR ---
Subjective Remarks no purposeful movement eyes open but blinked when I flashed my light back from PEG placement Objective Vitals Vital Signs Date Time Temp Pulse Resp B/P Pulse Ox O2 Delivery O2 Flow Rate FiO2 07/27/15 14:00 75 07/27/15 12:00 75 07/27/15 12:00 98.3 75 20 122/84 92 07/27/15 10:00 75 07/27/15 08:37 92 T-piece 28 07/27/15 08:00 98.0 75 20 94/60 96 07/27/15 08:00 75 07/27/15 06:00 84 07/27/15 04:00 98.4 85 20 121/80 96 07/27/15 04:00 85 07/27/15 02:00 85 07/27/15 00:00 98.1 100 23 104/68 92 07/27/15 00:00 95 07/26/15 22:03 93 T-piece 6.00 40 07/26/15 22:00 97 07/26/15 20:00 99.7 100 31 141/87 93 07/26/15 20:00 100 07/26/15 18:00 96 07/26/15 16:00 96 07/26/15 16:00 98.9 78 28 132/82 97 I/O 07/26/15 07/26/15 07/26/15 07/27/15 07/27/15 07/27/15 06:59 14:59 22:59 06:59 14:59 22:59 Intake Total 0 ml 300 ml 300 ml 100 ml Output Total 300 ml 500 ml 425 ml 100 ml 200 ml Balance -300 ml -500 ml -125 ml 200 ml -100 ml Intake Oral 0 ml IV Total 0 ml 0 ml Tube Feeding 0 ml Other 0 ml 300 ml 300 ml 100 ml Output Urine Total 300 ml 500 ml 425 ml 100 ml 200 ml # Bowel Movements 1 0 1 0 2 Result Diagram: 07/27/15 0402 07/27/15 0402 Imaging Last Impressions Chest X-Ray 07/25/15 0800 Signed Impressions: Service Date/Time: Saturday, July 25, 2015 07:51 - CONCLUSION: No acute disease. Jeramie Manjarrez MD Tunnelled Chest Tube Removal 07/17/15 0000 Signed Impressions: Service Date/Time: Friday, July 17, 2015 00:00 - CONCLUSION: Uncomplicated chest tube removal. Erlin Mack MD Chest CT 07/11/15 0000 Signed Impressions: Service Date/Time: Saturday, July 11, 2015 09:49 - CONCLUSION: Scattered patchy densities significantly improved from previous study. Tiny anterior right basilar pneumothorax. Right-sided chest tube in good position. Néstor Matamoros MD Chest Tube Insertion 07/07/15 0000 Signed Impressions: Service Date/Time: Tuesday, July 07, 2015 17:14 - CONCLUSION: Uncomplicated right chest tube placement as above. Tai Taylor Jr., MD Head CT 06/18/151902 Signed Impressions: Service Date/Time: June 19:31 - CONCLUSION: Diffuse atrophy unchanged. No acute intracranial findings. Kush Briscoe MD Abdomen/Pelvis CT 06/18/151902 Signed Impressions: Service Date/Time: June 19:36 - CONCLUSION: 1. Chronic nonspecific urinary bladder wall thickening. Bladder collapsed with Putnam catheter in place. 2. Chronic bilateral mid to lower lung zone groundglass opacity. 3. Nonobstructing left renal calculus. 4. Distended rectum. Kush Briscoe MD Objective Remarks eyes open, pupils reactive, anicteric trach in place- mask decrease breath sounds bilaterally regular rhythm good bowel sounds, PEG in place extremities - no edema, right leg is crossed over the left leg- flexion contracted both upper extremities- moves spontaneously condom catheter in place Procedures 07/26- PEG replacement A/P Assessment and Plan 55 years old male with tracheostomy and PEG tube shelter resident admitted for: Toxic metabolic Encephalopathy - chronic Parkinson's disease Cognitive disorder/Underlying dementia Depression CT head 06/18/15: - diffuse atrophy unchanged. No acute intracranial findings Continue Sinemet 25/100 3 times a day via PEG, Seroquel 50 mg twice a day, olanzapine 5 mg a night, Klonopin 2 mg every 8 hours, Paxil 20 daily and Neurontin 300 mg twice a day. These medications have been slowly titrated up since admission Continue Roxanol 5 mg every 4 hours when necessary pain and fentanyl patch 50 g every 3 days for pain management. Resp: Acute on chronic respiratory failure Chronic trach, Pneumonia Right pneumothorax status post pigtail catheter TP last 36 hours. Continue TP 24/[address] Cummings. following Pulm toilet, trach care. Exchanged from a #8 fenestrated Shiley cuffed tracheostomy to a #6 Shiley fenestrated cuffed on 07/22. Duo nebs 4 times a day and when necessary albuterol. Status post right pigtail chest tube by IR 07/06, removed 07/16. Follow chest x- ray revealed no pneumothorax Cardiac History of orthostasis History of CAD, HLP, Hypertension Continue Midodrine 5 mg twice a day Monitor HR and BP keep MAP>65mmHg GI: Malnutrition/protein calorie - moderate Status post PEG Hemorrhoids Gastroesophageal reflux disease - Tolerating Jevity 1.5 at 60 cc an hour. Now there is PEG tube malfunction. Consult GI - Currently Prevacid 30 mg per PEG tube daily for GERD - Current Colace/senna for bowel regimen. /metabolic: Nonobstructing left renal calculus Hypernatremia - resolved - Monitor renal function, I/O's. electrolytes replacement per protocol. - Continue on Free H20 200ml 3 times a day monitor - Follow BMP in a.m. 07/26 ID: Candiduria ESBL positive Klebsiella/Pseudomonas pneumonia MRSA colonization - Multidrug resistant UTI- ESBL 02/19/15 , MRSA + 03/20/15 - Heena glabrata in urine 03/19/15 - Recheck blood, sputum and urine cultures 07/06 no growth - 06/17 - blood cultures 2 - CONS/staph epi - 06/17 - sputum - ESBL positive Klebsiella/Pseudomonas Treated 15 days with tobramycin aerosols twice a day. - 06/17 - urine - C. glabrata/tropicalis - treated with Diflucan --Abx monitor for signs of infections ( Fever, WBC) Endo: --SSI if needed for glycemic control Heme Anemia - Monitor CBC MSK Bilateral lower extremity Contractures Stage II DU - Wound care evaluate and treat - Continue physical therapy Prophylaxis - GI - Prevacid - DVT - SCDs/Lovenox Claire Queen MD Jul 27, 2015 15:36
--- NOTE | 2015-07-27 16:58 | HHI.PR ---
Subjective Remarks 54 YOWM with ChRF,Trach, multiple uti No fever On Fentanyl patch Gets anxious. No Fever Had PEG replaced Tolerates T-Tube Objective Vital Signs Vital Signs Date Time Temp Pulse Resp B/P Pulse Ox O2 Delivery O2 Flow Rate FiO2 07/27/15 14:00 75 07/27/15 12:00 75 07/27/15 12:00 98.3 75 20 122/84 92 07/27/15 10:00 75 07/27/15 08:37 92 T-piece 28 07/27/15 08:00 98.0 75 20 94/60 96 07/27/15 08:00 75 07/27/15 06:00 84 07/27/15 04:00 98.4 85 20 121/80 96 07/27/15 04:00 85 07/27/15 02:00 85 07/27/15 00:00 98.1 100 23 104/68 92 07/27/15 00:00 95 07/26/15 22:03 93 T-piece 6.00 40 07/26/15 22:00 97 07/26/15 20:00 99.7 100 31 141/87 93 07/26/15 20:00 100 07/26/15 18:00 96 I/O 07/26/15 07/26/15 07/26/15 07/27/15 07/27/15 07/27/15 07:00 15:00 23:00 07:00 15:00 23:00 Intake Total 0 ml 300 ml 300 ml 100 ml Output Total 300 ml 500 ml 425 ml 100 ml 200 ml Balance -300 ml -500 ml -125 ml 200 ml -100 ml Intake Oral 0 ml IV Total 0 ml 0 ml Tube Feeding 0 ml Other 0 ml 300 ml 300 ml 100 ml Output Urine Total 300 ml 500 ml 425 ml 100 ml 200 ml # Bowel Movements 1 0 1 0 2 Result Diagram: 07/27/1540107/27/15401 Objective Remarks GENERAL: MBMN male on Vent. SKIN: Warm and dry. HEAD: Normocephalic. EYES: No scleral icterus. No injection or drainage. NECK: Supple, trachea midline. No JVD or lymphadenopathy. has trach CARDIOVASCULAR: Regular rate and rhythm without murmurs, gallops, or rubs. RESPIRATORY: Breath sounds equal bilaterally. No accessory muscle use. GASTROINTESTINAL: Abdomen soft, non-tender, nondistended. PEG tube in place MUSCULOSKELETAL: No cyanosis, or edema. BACK: Nontender without obvious deformity. No CVA tenderness. A/P Assessment and Plan VDRF S/P Trach Parkinson's diasease Dementia UTI Small PTX--resolved PLAN: ABX Meropenm, Diflucan and Tobra nebs TF Add Ativan 0.5 mg tid Cont T-Tube DC Plans for [place] Severiano Ag MD Jul 27, 2015 16:58
[2015-07-27] MEDS: OLANZapine 2.5 MG TAB GT SCH (21:34)
[2015-07-27] MEDS: ENOXAPARIN SODIUM 30 MG/0.3 ML SYRINGE SQ SCH (21:35)
[2015-07-27] MEDS: MORPHINE SULFATE ORAL SOLN 10 MG/0.5 ML SYRINGE PO PRN (22:33)
[2015-07-28] VITALS (12 sets, daily range): BP systolic 106–126; BP diastolic 71–78; PULSE 82–113; RESP 18–38; TEMP 97.8–99.8; O2SAT 92–99
[2015-07-28] MEDS ORDERED: MORPHINE SULFATE 4 MG/ML INJ IV PUSH ONE (00:15)
[2015-07-28] MEDS ORDERED: LORazepam 2 MG/ML VIAL IM PRN (00:45)
[2015-07-28] MEDS: CHLORHEXIDINE GLUCONATE 2 % 1 PACK (2 CLOTHS) TOP SCH (04:00)
[2015-07-28] MEDS: RESP: ALBUTEROL 2.5 MG/IPRATROPIUM 0.5 MG NEB (SCH) NEB ×4 (04:41→20:53)
[2015-07-28] MEDS: RESP: SODIUM CHLORIDE 3% 4 ML NEB NEB SCH ×4 (04:41→20:53)
[2015-07-28] MEDS: clonazePAM 1 MG TAB PO SCH ×3 (05:42→21:18)
[2015-07-28] MEDS: CARBIDOPA/LEVODOPA 25 MG/100 MG TAB GT SCH ×3 (05:43→22:00)
[2015-07-28] MEDS: FREE WATER G-TUBE SCH ×3 (05:58→22:00)
[2015-07-28] MEDS: DOCUSATE SODIUM 100 MG/10 ML UDC PO SCH ×2 (08:00→21:17)
[2015-07-28] MEDS: SENNOSIDES SYRUP 8.8 MG/5 ML CUP PO SCH (08:00)
[2015-07-28] MEDS: LACTOBACILLUS ACIDOPHILUS TAB PO SCH ×3 (08:00→18:18)
[2015-07-28] MEDS: MIDODRINE 5 MG TAB G-TUBE SCH ×2 (08:00→21:18)
[2015-07-28] MEDS: GABAPENTIN 300 MG CAP G-TUBE SCH ×2 (08:00→21:17)
[2015-07-28] MEDS: LANSOPRAZOLE SOLUTAB 30 MG TAB NG SCH (08:01)
[2015-07-28] MEDS: SODIUM CHLORIDE 0.9% FLUSH 5 ML FLUSH IVF SCH ×2 (08:01→21:00)
[2015-07-28] MEDS: PARoxetine HCL 20 MG TAB G-TUBE SCH (08:01)
[2015-07-28] MEDS: QUEtiapine FUMARATE 25 MG TAB G-TUBE SCH ×2 (08:01→21:17)
[2015-07-28] MEDS: CHLORHEXIDINE 0.12% (ORAL KIT) 15 ML CUP MT SCH ×2 (08:02→20:00)
[2015-07-28] MEDS: ARTIFICIAL TEARS OPTH SOLN 15 ML BTL EACH EYE SCH ×3 (08:02→18:00)
--- NOTE | 2015-07-28 11:53 | HHI.PR ---
Subjective Remarks tolerating tube feedings require frequent suctioning maintaining sats at current fi02 Objective Vitals Vital Signs Date Time Temp Pulse Resp B/P Pulse Ox O2 Delivery O2 Flow Rate FiO2 07/28/15 08:54 99 T-piece 28 07/28/15 08:00 99.8 97 18 112/78 96 07/28/15 08:00 97 07/28/15 06:00 98 07/28/15 04:00 92 07/28/15 04:00 97.8 92 27 106/74 94 07/28/15 02:00 99 07/28/15 00:00 98.8 110 38 110/74 92 07/28/15 00:00 110 07/27/15 22:00 105 07/27/15 21:55 96 T-piece 5.00 28 07/27/15 20:00 98.6 102 26 127/85 94 07/27/15 20:00 102 07/27/15 18:00 75 07/27/15 16:00 75 07/27/15 16:00 98.4 96 20 139/79 96 07/27/15 14:00 75 07/27/15 12:00 75 07/27/15 12:00 98.3 75 20 122/84 92 I/O 07/27/15 07/27/15 07/27/15 07/28/15 07/28/15 07/28/15 07:00 15:00 23:00 07:00 15:00 23:00 Intake Total 300 ml 100 ml 778 ml 665 ml Output Total 100 ml 200 ml Balance 200 ml -100 ml 778 ml 665 ml IV Total 0 ml 0 ml Tube Feeding 548 ml 325 ml Other 300 ml 100 ml 230 ml 340 ml Output Urine Total 100 ml 200 ml # Voids 2 2 # Bowel Movements 0 2 1 Result Diagram: 07/27/15 0402 07/27/15 0402 Imaging Last Impressions Chest X-Ray 07/25/15 0800 Signed Impressions: Service Date/Time: Saturday, July 25, 2015 07:51 - CONCLUSION: No acute disease. Jeramie Manjarrez MD Tunnelled Chest Tube Removal 07/17/15 0000 Signed Impressions: Service Date/Time: Friday, July 17, 2015 00:00 - CONCLUSION: Uncomplicated chest tube removal. Erlin Mack MD Chest CT 07/11/15 0000 Signed Impressions: Service Date/Time: Saturday, July 11, 2015 09:49 - CONCLUSION: Scattered patchy densities significantly improved from previous study. Tiny anterior right basilar pneumothorax. Right-sided chest tube in good position. Néstor Matamoros MD Chest Tube Insertion 07/07/15 0000 Signed Impressions: Service Date/Time: Tuesday, July 07, 2015 17:14 - CONCLUSION: Uncomplicated right chest tube placement as above. Tai Taylor Jr., MD Head CT 06/18/151902 Signed Impressions: Service Date/Time: June 19:31 - CONCLUSION: Diffuse atrophy unchanged. No acute intracranial findings. Kush Briscoe MD Abdomen/Pelvis CT 06/18/151902 Signed Impressions: Service Date/Time: June 19:36 - CONCLUSION: 1. Chronic nonspecific urinary bladder wall thickening. Bladder collapsed with Putnam catheter in place. 2. Chronic bilateral mid to lower lung zone groundglass opacity. 3. Nonobstructing left renal calculus. 4. Distended rectum. Kush Briscoe MD Objective Remarks eyes open, pupils reactive, anicteric, turned head to call of his anme trach in place decrease breath sounds bilaterally, + rhonchi when coughs regular rhythm good bowel sounds, PEG in place extremities - no edema, right leg is crossed over the left leg- flexion contracted both upper extremities- moves spontaneously condom catheter in place Procedures 07/26- PEG replacement A/P Assessment and Plan 55 years old male with tracheostomy and PEG tube senior living resident admitted for: Toxic metabolic Encephalopathy - chronic Parkinson's disease Cognitive disorder/Underlying dementia Depression CT head 06/18/15: - diffuse atrophy unchanged. No acute intracranial findings Continue Sinemet 25/100 3 times a day via PEG, Seroquel 50 mg twice a day, olanzapine 5 mg a night, Klonopin 2 mg every 8 hours, Paxil 20 daily and Neurontin 300 mg twice a day. These medications have been slowly titrated up since admission Continue Roxanol 5 mg every 4 hours when necessary pain and fentanyl patch 50 g every 3 days for pain management. Resp: Acute on chronic respiratory failure Chronic trach, Pneumonia Right pneumothorax status post pigtail catheter TP last 36 hours. Continue TP 24/[address] Cummings. following Pulm toilet, trach care. Exchanged from a #8 fenestrated Shiley cuffed tracheostomy to a #6 Shiley fenestrated cuffed on 07/22. Duo nebs 4 times a day and when necessary albuterol. Status post right pigtail chest tube by IR 07/06, removed 07/16. Follow chest x- ray revealed no pneumothorax Cardiac History of orthostasis History of CAD, HLP, Hypertension Continue Midodrine 5 mg twice a day Monitor HR and BP keep MAP>65mmHg GI: Malnutrition/protein calorie - moderate Status post PEG Hemorrhoids Gastroesophageal reflux disease - Tolerating Jevity 1.5 at 60 cc an hour. Now there is PEG tube malfunction. Consult GI - Currently Prevacid 30 mg per PEG tube daily for GERD - Current Colace/senna for bowel regimen. /metabolic: Nonobstructing left renal calculus Hypernatremia - resolved - Monitor renal function, I/O's. electrolytes replacement per protocol. - Continue on Free H20 200ml 3 times a day monitor - Follow BMP in a.m. 07/26 ID: Candiduria ESBL positive Klebsiella/Pseudomonas pneumonia MRSA colonization - Multidrug resistant UTI- ESBL 02/19/15 , MRSA + 03/20/15 - [place] glabrata in urine 03/19/15 - Recheck blood, sputum and urine cultures 07/06 no growth - 06/17 - blood cultures 2 - CONS/staph epi - 06/17 - sputum - ESBL positive Klebsiella/Pseudomonas Treated 15 days with tobramycin aerosols twice a day. - 06/17 - urine - C. glabrata/tropicalis - treated with Diflucan --Abx monitor for signs of infections ( Fever, WBC) Endo: --SSI if needed for glycemic control Heme Anemia - Monitor CBC MSK Bilateral lower extremity Contractures Stage II DU - Wound care evaluate and treat - Continue physical therapy Prophylaxis - GI - Prevacid - DVT - SCDs/Lovenox Claire Queen MD Jul 28, 2015 11:53
--- NOTE | 2015-07-28 17:46 | HHI.PR ---
Subjective Remarks 54 YOWM with ChRF,Trach, multiple uti No fever On Fentanyl patch Gets anxious. No Fever Tolerates T-Tube Objective Vital Signs Vital Signs Date Time Temp Pulse Resp B/P Pulse Ox O2 Delivery O2 Flow Rate FiO2 07/28/15 16:26 94 T-piece 28 07/28/15 08:54 99 T-piece 28 07/28/15 08:00 99.8 97 18 112/78 96 07/28/15 08:00 97 07/28/15 06:00 98 07/28/15 04:00 92 07/28/15 04:00 97.8 92 27 106/74 94 07/28/15 02:00 99 07/28/15 00:00 98.8 110 38 110/74 92 07/28/15 00:00 110 07/27/15 22:00 105 07/27/15 21:55 96 T-piece 5.00 28 07/27/15 20:00 98.6 102 26 127/85 94 07/27/15 20:00 102 07/27/15 18:00 75 I/O 07/27/15 07/27/15 07/27/15 07/28/15 07/28/15 07/28/15 07:00 15:00 23:00 07:00 15:00 23:00 Intake Total 300 ml 100 ml 778 ml 665 ml Output Total 100 ml 200 ml Balance 200 ml -100 ml 778 ml 665 ml IV Total 0 ml 0 ml Tube Feeding 548 ml 325 ml Other 300 ml 100 ml 230 ml 340 ml Output Urine Total 100 ml 200 ml # Voids 2 2 # Bowel Movements 0 2 1 Result Diagram: 07/27/15 0402 07/27/15 0402 Objective Remarks GENERAL: MBMN male on Vent. SKIN: Warm and dry. HEAD: Normocephalic. EYES: No scleral icterus. No injection or drainage. NECK: Supple, trachea midline. No JVD or lymphadenopathy. has trach CARDIOVASCULAR: Regular rate and rhythm without murmurs, gallops, or rubs. RESPIRATORY: Breath sounds equal bilaterally. No accessory muscle use. GASTROINTESTINAL: Abdomen soft, non-tender, nondistended. PEG tube in place MUSCULOSKELETAL: No cyanosis, or edema. BACK: Nontender without obvious deformity. No CVA tenderness. A/P Assessment and Plan VDRF S/P Trach Parkinson's diasease Dementia UTI Small PTX--resolved PLAN: ABX Meropenm, Diflucan and Tobra nebs TF Add Ativan 0.5 mg tid Cont T-Tube DC Plans for NH underway Severiano Ag MD Jul 28, 2015 17:46
[2015-07-28] MEDS: OLANZapine 2.5 MG TAB GT SCH (21:17)
[2015-07-28] MEDS: MORPHINE SULFATE 4 MG/ML INJ IV PUSH PRN (21:18)
[2015-07-28] MEDS: ENOXAPARIN SODIUM 30 MG/0.3 ML SYRINGE SQ SCH (21:18)
[2015-07-29] VITALS (16 sets, daily range): BP systolic 94–144; BP diastolic 7–75; PULSE 86–121; RESP 21–34; TEMP 97.9–98.9; O2SAT 88–99
[2015-07-29] MEDS: RESP: SODIUM CHLORIDE 3% 4 ML NEB NEB SCH ×4 (03:43→21:10)
[2015-07-29] MEDS: RESP: ALBUTEROL 2.5 MG/IPRATROPIUM 0.5 MG NEB (SCH) NEB ×3 (03:43→15:05)
[2015-07-29] MEDS: CHLORHEXIDINE GLUCONATE 2 % 1 PACK (2 CLOTHS) TOP SCH (04:00)
[2015-07-29] MEDS: CARBIDOPA/LEVODOPA 25 MG/100 MG TAB GT SCH ×2 (06:15→21:48)
[2015-07-29] MEDS: clonazePAM 1 MG TAB PO SCH ×2 (06:16→21:48)
[2015-07-29] MEDS: LANSOPRAZOLE SOLUTAB 30 MG TAB NG SCH (10:51)
[2015-07-29] MEDS: SENNOSIDES SYRUP 8.8 MG/5 ML CUP PO SCH (10:51)
[2015-07-29] MEDS: DOCUSATE SODIUM 100 MG/10 ML UDC PO SCH ×2 (10:51→21:47)
[2015-07-29] MEDS: GABAPENTIN 300 MG CAP G-TUBE SCH ×2 (10:51→21:49)
[2015-07-29] MEDS: QUEtiapine FUMARATE 25 MG TAB G-TUBE SCH ×2 (10:51→21:49)
[2015-07-29] MEDS: SODIUM CHLORIDE 0.9% FLUSH 5 ML FLUSH IVF SCH ×2 (10:52→21:00)
[2015-07-29] MEDS: LACTOBACILLUS ACIDOPHILUS TAB PO SCH ×3 (10:52→21:48)
[2015-07-29] MEDS: fentaNYL 50 MCG/HR PATCH TD SCH (10:52)
[2015-07-29] MEDS: MIDODRINE 5 MG TAB G-TUBE SCH ×2 (10:59→21:49)
[2015-07-29] MEDS: PARoxetine HCL 20 MG TAB G-TUBE SCH (10:59)
[2015-07-29] MEDS: ARTIFICIAL TEARS OPTH SOLN 15 ML BTL EACH EYE SCH ×2 (10:59→13:00)
--- NOTE | 2015-07-29 11:41 | RADRPT ---
EXAM DATE/TIME: 07/27/2015 14:43 CORRECTION Corrected on: August 03, 2015; CORRECTION: Added missing examform information [place] COMPARISON: CHEST TUBE REMOVAL, RIGHT, July 17, 2015, 0:00. INDICATIONS : Patients g-tube clogged.Needed for nutrtion. MEDICAL HISTORY : 1. Multible infections 2. Dementia 3. Encephalopathy 4. HTN 5. Hx c-diff 6.HX MRsA SURGICAL HISTORY : 1.Hemorrhoidal surgery 2.ENT surgeries 3. Tracheostomy 4.Gtube ENCOUNTER: Initial ACUITY: 1 year PAIN SCORE: Non-responsive FLUORO TIME: 1.4 minutes CONTRAST: 10 cc Omnipaque (iohexol) 350 DEVICE(S): 1.) 18 [place] gastrostomy tube PROCEDURE : 1. Fluoroscopically guided gastrostomy tube exchange. 2. Conscious sedation with continuous EKG and oximetry monitoring. The risks, benefits and alternatives to the procedure were explained to the patient's family. Verbal and written consent was obtained. The site was prepped in sterile fashion. Full sterile technique w as used, including cap, mask, sterile gloves and gown and a large sterile sheet. Hand hygiene and 2% chlorhexidine and/or betadine/alcohol prep was utilized per protocol for cutaneous antisepsis. 10 cc of viscous lidocaine was applied to the site around the existing tube. This was allowed to dwel l for 20 minutes prior to the procedure. The existing tube was accessed using sterile technique. The tube was removed over a 0.035 wire. A ne w tube was advanced over the wire and positioned into the stomach without difficulty. The balloon wa s inflated with appropriate volume of saline. Injection of positive contrast demonstrates good posit ion of the gastrostomy tube. The patient tolerated the procedure well and there were no complications. EKG and oximetry remained stable throughout the procedure. The patient was sent to post anesthesia recovery in stable conditio n. CONCLUSION: Uncomplicated gastrostomy tube exchange as above. Blaine Jackson MD on July 29, 2015 at 11:37 Board Certified Radiologist. This report was verified electronically. DR Blackburn on August 03, 2015 at 11:41 Board Certified Radiologist. This report was verified electronically.
[2015-07-29] MEDS: FREE WATER G-TUBE SCH ×2 (14:00→21:50)
--- NOTE | 2015-07-29 15:15 | HHI.PR ---
Subjective Remarks patient with paradoxical breathing HR 100s RR 30s lots of secretions Objective Vitals Vital Signs Date Time Temp Pulse Resp B/P Pulse Ox O2 Delivery O2 Flow Rate FiO2 07/29/15 10:00 97 07/29/15 08:43 93 T-piece 50 07/29/15 08:00 98.9 95 22 103/7 90 07/29/15 08:00 95 07/29/15 06:00 97 07/29/15 04:00 98.9 121 28 127/74 99 07/29/15 04:00 121 07/29/15 02:00 110 07/29/15 01:00 94 T-piece 6.00 70 07/29/15 00:00 118 07/29/15 00:00 97.9 118 34 123/75 88 07/28/15 22:00 113 07/28/15 20:25 94 T-piece 6.00 35 07/28/15 20:00 97.9 104 32 126/78 93 07/28/15 20:00 104 07/28/15 16:26 94 T-piece 28 07/28/15 16:00 98.9 82 24 109/78 96 I/O 07/28/15 07/28/15 07/28/15 07/29/15 07/29/15 07/29/15 07:00 15:00 23:00 07:00 15:00 23:00 Intake Total 665 ml 802 ml 408 ml 595 ml Output Total 325 ml 300 ml 500 ml Balance 665 ml 477 ml 108 ml 95 ml Tube Feeding 325 ml 682 ml 178 ml 345 ml Other 340 ml 120 ml 230 ml 250 ml Output Urine Total 325 ml 300 ml 500 ml # Voids 2 # Bowel Movements 1 1 1 1 Result Diagram: 07/27/15 0402 07/27/15 0402 Imaging Last Impressions Catheter Change 07/27/15 0000 Signed Impressions: Service Date/Time: Monday, July 27, 2015 14:43 - CONCLUSION: Uncomplicated gastrostomy tube exchange as above. Blaine Jackson MD Chest X-Ray 07/25/15 0800 Signed Impressions: Service Date/Time: Saturday, July 25, 2015 07:51 - CONCLUSION: No acute disease. Jeramie Manjarrez MD Tunnelled Chest Tube Removal 07/17/15 0000 Signed Impressions: Service Date/Time: Friday, July 17, 2015 00:00 - CONCLUSION: Uncomplicated chest tube removal. Erlin Mack MD Chest CT 07/11/15 0000 Signed Impressions: Service Date/Time: Saturday, July 11, 2015 09:49 - CONCLUSION: Scattered patchy densities significantly improved from previous study. Tiny anterior right basilar pneumothorax. Right-sided chest tube in good position. Néstor Matamoros MD Chest Tube Insertion 07/07/15 0000 Signed Impressions: Service Date/Time: Tuesday, July 07, 2015 17:14 - CONCLUSION: Uncomplicated right chest tube placement as above. Tai Taylor Jr., MD Head CT 06/18/151902 Signed Impressions: Service Date/Time: June 19:31 - CONCLUSION: Diffuse atrophy unchanged. No acute intracranial findings. Kush Briscoe MD Abdomen/Pelvis CT 06/18/151902 Signed Impressions: Service Date/Time: June 19:36 - CONCLUSION: 1. Chronic nonspecific urinary bladder wall thickening. Bladder collapsed with Putnam catheter in place. 2. Chronic bilateral mid to lower lung zone groundglass opacity. 3. Nonobstructing left renal calculus. 4. Distended rectum. Kush Briscoe MD Objective Remarks paradoxical breathing eyes open, pupils reactive, anicteric, trach in place decrease breath sounds bilaterally, + rhonchi when coughs regular rhythm good bowel sounds, PEG in place extremities - no edema, right leg is crossed over the left leg- flexion contracted both upper extremities- moves spontaneously condom catheter in place Procedures 07/26- PEG replacement A/P Assessment and Plan 55 years old male with tracheostomy and PEG tube half-way resident admitted for: Acute on chronic respiratory failure- going into respiratory fatigue- place back on ventilator today 07/28 Chronic trach, Pneumonia Right pneumothorax status post pigtail catheter Status post right pigtail chest tube by IR 07/06, removed 07/16. Follow chest x- ray revealed no pneumothorax Put back on ventilator AC mode 30% Fi02 5 cm PEEP - today 07/28. Recheck ABG in 30 mins d/w Dr. Ag Suction secretions Duo nebs 4 times a day and when necessary albuterol. Toxic metabolic Encephalopathy - chronic Parkinson's disease Cognitive disorder/Underlying dementia Depression CT head 06/18/15: - diffuse atrophy unchanged. No acute intracranial findings Continue Sinemet 25/100 3 times a day via PEG, Seroquel 50 mg twice a day, olanzapine 5 mg a night, Klonopin 2 mg every 8 hours, Paxil 20 daily and Neurontin 300 mg twice a day. These medications have been slowly titrated up since admission Continue Roxanol 5 mg every 4 hours when necessary pain and fentanyl patch 50 g every 3 days for pain management. Cardiac History of orthostasis History of CAD, HLP, Hypertension Continue Midodrine 5 mg twice a day Monitor HR and BP keep MAP>65mmHg GI: Malnutrition/protein calorie - moderate Status post PEG Hemorrhoids Gastroesophageal reflux disease - Tolerating Jevity 1.5 at 60 cc an hour. Now there is PEG tube malfunction. Consult GI - Currently Prevacid 30 mg per PEG tube daily for GERD - Current Colace/senna for bowel regimen. /metabolic: Nonobstructing left renal calculus Hypernatremia - resolved - Monitor renal function, I/O's. electrolytes replacement per protocol. - Continue on Free H20 200ml 3 times a day monitor - Follow BMP in a.m. 07/26 ID: Candiduria ESBL positive Klebsiella/Pseudomonas pneumonia MRSA colonization - Multidrug resistant UTI- ESBL 02/19/15 , MRSA + 03/20/15 - Heena glabrata in urine 03/19/15 - Recheck blood, sputum and urine cultures 07/06 no growth - 06/17 - blood cultures 2 - CONS/staph epi - 06/17 - sputum - ESBL positive Klebsiella/Pseudomonas Treated 15 days with tobramycin aerosols twice a day. - 06/17 - urine - C. glabrata/tropicalis - treated with Diflucan --Abx monitor for signs of infections ( Fever, WBC) Endo: --SSI if needed for glycemic control Heme Anemia - Monitor CBC MSK Bilateral lower extremity Contractures Stage II DU - Wound care evaluate and treat - Continue physical therapy Prophylaxis - GI - Prevacid - DVT - SCDs/Lovenox will d/w family- hospice candidate Claire Queen MD Jul 29, 2015 15:15
--- NOTE | 2015-07-29 17:07 | HHI.PR ---
Subjective Remarks 54 YOWM with ChRF,Trach, multiple uti No fever On Fentanyl patch Gets anxious. No Fever Techypnoic on T-Tube Objective Vital Signs Vital Signs Date Time Temp Pulse Resp B/P Pulse Ox O2 Delivery O2 Flow Rate FiO2 07/29/15 10:00 97 07/29/15 08:43 93 T-piece 50 07/29/15 08:00 98.9 95 22 103/7 90 07/29/15 08:00 95 07/29/15 06:00 97 07/29/15 04:00 98.9 121 28 127/74 99 07/29/15 04:00 121 07/29/15 02:00 110 07/29/15 01:00 94 T-piece 6.00 70 07/29/15 00:00 118 07/29/15 00:00 97.9 118 34 123/75 88 07/28/15 22:00 113 07/28/15 20:25 94 T-piece 6.00 35 07/28/15 20:00 97.9 104 32 126/78 93 07/28/15 20:00 104 I/O 07/28/15 07/28/15 07/28/15 07/29/15 07/29/15 07/29/15 07:00 15:00 23:00 07:00 15:00 23:00 Intake Total 665 ml 802 ml 408 ml 595 ml Output Total 325 ml 300 ml 500 ml Balance 665 ml 477 ml 108 ml 95 ml Tube Feeding 325 ml 682 ml 178 ml 345 ml Other 340 ml 120 ml 230 ml 250 ml Output Urine Total 325 ml 300 ml 500 ml # Voids 2 # Bowel Movements 1 1 1 1 Result Diagram: 07/27/152 07/27/15 0402 Objective Remarks GENERAL: MBMN male on Vent. SKIN: Warm and dry. HEAD: Normocephalic. EYES: No scleral icterus. No injection or drainage. NECK: Supple, trachea midline. No JVD or lymphadenopathy. has trach CARDIOVASCULAR: Regular rate and rhythm without murmurs, gallops, or rubs. RESPIRATORY: Breath sounds equal bilaterally. No accessory muscle use. GASTROINTESTINAL: Abdomen soft, non-tender, nondistended. PEG tube in place MUSCULOSKELETAL: No cyanosis, or edema. BACK: Nontender without obvious deformity. No CVA tenderness. A/P Assessment and Plan VDRF S/P Trach Parkinson's diasease Dementia UTI Small PTX--resolved PLAN: ABX Meropenm, Diflucan and Tobra nebs TF Add Ativan 0.5 mg tid Put back on AC 16 to let him rest Severiano Ag MD Jul 29, 2015 17:07
--- NOTE | 2015-07-29 18:14 | RADRPT ---
EXAM DATE/TIME: 07/29/2015 17:42 [facility] COMPARISON: CHEST SINGLE AP, July 25, 2015, 7:51. INDICATIONS : Short of breath, patient placed back on vent. MEDICAL HISTORY : Diabetes mellitus type II. Hypertension. SURGICAL HISTORY : Tracheostomy. ENCOUNTER: Subsequent ACUITY: 3 weeks PAIN SCORE: Non-responsive. LOCATION: chest FINDINGS: A single view of the chest demonstrates hyperinflation with biapical scarring. Heart normal size. Tra cheostomy tube unchanged. Small lateral pneumothorax measures 1.3 cm of pleural separation. The cardi omediastinal contours are unremarkable. Osseous structures are intact. CONCLUSION: Smaller right-sided pneumothorax which appears new from previous study. Néstor Matamoros MD on July 29, 2015 at 18:08 Board Certified Radiologist. This report was verified electronically.
[2015-07-29 19:36] LABS: BLOOD GAS BASE EXCESS 6.1 mmol/L (-2-2); BLOOD GAS CARBOXYHEMOGLOBIN 1.1 % (0-4); BLOOD GAS HCO3 30 mmol/L (22-26); BLOOD GAS METHEMOGLOBIN 0.6 % (0-2); BLOOD GAS O2 HGB SATURATION 93 % (90-100); BLOOD GAS OXYGEN CONTENT 12.9 Vol % (12.0-20.0); BLOOD GAS PCO2 43 mmHg (38-42); BLOOD GAS PO2 75 mmHg (61-120); BLOOD GAS TOTAL HGB 9.8 G/DL (12.0-16.0); CRITICAL VALUE NO; OXYGEN DEVICE VENTILATOR; TEMP CORR TO 98.6
[2015-07-29 19:37] LABS: DRAW SITE RT RADIAL; FIO2 30 %; NUMBER OF ARTERIAL PUNCTURES 1; STAT NO; ULNAR PULSE PRESENT; VENT SETTINGS A/C 16/500/PEEP5
[2015-07-29] MEDS: CHLORHEXIDINE 0.12% (ORAL KIT) 15 ML CUP MT SCH (20:00)
[2015-07-29] MEDS: ENOXAPARIN SODIUM 30 MG/0.3 ML SYRINGE SQ SCH (21:47)
[2015-07-29] MEDS: OLANZapine 2.5 MG TAB GT SCH (21:49)
[2015-07-29] MEDS: PROPOFOL 1000 MG/100 ML INJ 100 ML IV SCH (23:11)
[2015-07-30] VITALS (20 sets, daily range): BP systolic 88–104; BP diastolic 54–72; PULSE 70–91; RESP 18–26; TEMP 96–98.3; O2SAT 18–100
[2015-07-30] MEDS: RESP: ALBUTEROL 2.5 MG/3 ML NEB (PRN) INH ×4 (04:25→20:03)
[2015-07-30] MEDS: RESP: SODIUM CHLORIDE 3% 4 ML NEB NEB SCH ×4 (04:25→20:02)
[2015-07-30] MEDS: FREE WATER G-TUBE SCH ×3 (06:00→21:44)
[2015-07-30] MEDS: CARBIDOPA/LEVODOPA 25 MG/100 MG TAB GT SCH ×3 (06:21→21:43)
[2015-07-30] MEDS: clonazePAM 1 MG TAB PO SCH ×3 (06:21→21:43)
[2015-07-30] MEDS: PROPOFOL 1000 MG/100 ML INJ 100 ML IV SCH ×2 (06:24→21:44)
[2015-07-30] MEDS: LACTOBACILLUS ACIDOPHILUS TAB PO SCH ×3 (08:36→18:00)
[2015-07-30] MEDS: SENNOSIDES SYRUP 8.8 MG/5 ML CUP PO SCH (08:36)
[2015-07-30] MEDS: MIDODRINE 5 MG TAB G-TUBE SCH ×2 (08:37→19:36)
[2015-07-30] MEDS: DOCUSATE SODIUM 100 MG/10 ML UDC PO SCH ×2 (08:37→19:35)
[2015-07-30] MEDS: PARoxetine HCL 20 MG TAB G-TUBE SCH (08:37)
[2015-07-30] MEDS: GABAPENTIN 300 MG CAP G-TUBE SCH ×2 (08:37→19:36)
[2015-07-30] MEDS: QUEtiapine FUMARATE 25 MG TAB G-TUBE SCH ×2 (08:37→19:35)
[2015-07-30] MEDS: LANSOPRAZOLE SOLUTAB 30 MG TAB NG SCH (08:37)
[2015-07-30] MEDS: SODIUM CHLORIDE 0.9% FLUSH 5 ML FLUSH IVF SCH ×2 (08:38→19:36)
[2015-07-30] MEDS: ARTIFICIAL TEARS OPTH SOLN 15 ML BTL EACH EYE SCH ×3 (08:39→18:15)
[2015-07-30] MEDS: CHLORHEXIDINE 0.12% (ORAL KIT) 15 ML CUP MT SCH ×2 (08:39→19:35)
--- NOTE | 2015-07-30 08:56 | RADRPT ---
EXAM DATE/TIME: 07/30/2015 08:11 [facility] COMPARISON: CHEST SINGLE AP, July 29, 2015, 17:42. INDICATIONS : Pneumothorax. MEDICAL HISTORY : None. SURGICAL HISTORY : None. ENCOUNTER: Subsequent ACUITY: 3 days PAIN SCORE: Non-responsive. LOCATION: Bilateral chest FINDINGS: Tracheostomy is stable in position. A circumferential right pneumothorax is slightly increased in siz e from yesterday's exam with 15-16 mm separation of pleural layers on the current study. There is no evidence of tension at present. Left lung is stable and focally clear. No significant effusion is celina pected. Cardiac mediastinal contours are stable. CONCLUSION: Slight interval increase in right pneumothorax Erlin Mack MD on July 30, 2015 at 8:48 Board Certified Radiologist. This report was verified electronically.
--- NOTE | 2015-07-30 15:10 | PD.RAD ---
Post Procedure Progress Note Pre Procedure Diagnosis: (1) Pneumothorax on right Post Procedure Diagnosis: (1) Pneumothorax on right Procedure Date: Jul 30, 2015 Supervising Radiologist: Blaine Jackson Anesthesia: Local Plan of Activity Patient to Unit: Critical Care Patient Condition: Poor Additional Comments: 8 kiswahili chest tube placed on the right. Complete reinflation of the right lung. See PACS Report for procedural detail/treatment Blaine Jackson MD Jul 30, 2015 15:10
--- NOTE | 2015-07-30 15:51 | RADRPT ---
EXAM DATE/TIME: 07/30/2015 14:50 [facility] COMPARISON: CHANGE OF G-TUBE CATHETER, July 27, 2015, 14:43. INDICATIONS : Patient with right-sided pneumothorax in need of chest tube placement. MEDICAL HISTORY : Parkinsons disease, Pneumonia, GERD, Hyponatremia, MRSA, Cognitive disorder SURGICAL HISTORY : PEG tube, Trach, Left hip fx ENCOUNTER: Initial ACUITY: 3 days PAIN SCORE: FLUORO TIME: 2 minutes DEVICE(S): 1.) 10 Greenlandic non-locking catheter Ke 30cm PROCEDURE : 1. Fluoroscopically guided chest tube placement. 2. Conscious sedation with continuous EKG and oximetry monitoring. The risks, benefits and alternatives to the procedure were explained and verbal and written consent w as obtained. The site was prepped in sterile fashion. Full sterile technique was used, including ca p, mask, sterile gloves and gown and a large sterile sheet. Hand hygiene and 2% chlorhexidine and/or betadine/alcohol prep was utilized per protocol for cutaneous antisepsis. The skin and subcutaneous tissues were infiltrated with local anesthetic solution. With fluoroscopic guidance the chest was punctured between the first and second interspace and the pr escribed catheter was placed in the lung apex. Wall suction was applied. Post procedure images demon strate satisfactory position of the tube. The catheter was sutured in place and a Percu-Stay was adelaide lied. Conscious sedation was performed with the prescribed dosages and duration as above. The patient lynsey ated the procedure well and there were no complications. EKG and oximetry remained stable throughout the procedure. The patient was sent to post anesthesia recovery in stable condition. CONCLUSION: Uncomplicated chest tube placement as above. Blaine Jackson MD on July 30, 2015 at 15:49 Board Certified Radiologist. This report was verified electronically.
--- NOTE | 2015-07-30 16:34 | HHI.PR ---
Subjective Remarks patient back from IR- chest tube-pigtail catheter placed Objective Vitals Vital Signs Date Time Temp Pulse Resp B/P Pulse Ox O2 Delivery O2 Flow Rate FiO2 07/30/15 16:16 95 30 07/30/15 15:31 100 100 07/30/15 14:00 91 07/30/15 13:06 97 30 07/30/15 12:00 98.0 78 24 99/56 99 07/30/15 12:00 78 07/30/15 12:00 30 07/30/15 10:15 97 30 07/30/15 10:00 87 07/30/15 08:00 85 07/30/15 08:00 97.8 85 26 99/62 97 07/30/15 08:00 30 07/30/15 07:47 98 30 07/30/15 06:00 85 07/30/15 04:17 97 30 07/30/15 04:00 70 07/30/15 04:00 96.0 70 21 93/54 97 07/30/15 04:00 30 07/30/15 02:00 71 07/30/15 00:15 96 35 07/30/15 00:00 30 07/30/15 00:00 80 07/30/15 00:00 97.6 80 18 88/61 96 07/29/15 22:00 86 07/29/15 21:04 99 30 07/29/15 20:00 98.1 93 21 101/69 96 07/29/15 20:00 93 07/29/15 20:00 30 07/29/15 18:00 94 07/29/15 17:48 96 30 I/O 07/29/15 07/29/15 07/29/15 07/30/15 07/30/15 07/30/15 07:00 15:00 23:00 07:00 15:00 23:00 Intake Total 595 ml 240 ml 1324 ml 852 ml 555 ml Output Total 500 ml 300 ml 800 ml 0 ml 200 ml Balance 95 ml -60 ml 524 ml 852 ml 355 ml IV Total 62 ml 111 ml 97 ml Tube Feeding 345 ml 1062 ml 541 ml 258 ml Other 250 ml 240 ml 200 ml 200 ml 200 ml Output Urine Total 500 ml 300 ml 800 ml 0 ml 200 ml # Bowel Movements 1 0 0 1 Result Diagram: 07/27/15 0402 07/27/15 0402 Imaging Last Impressions Chest X-Ray 07/30/15 0000 Signed Impressions: Service Date/Time: July 08:11 - CONCLUSION: Slight interval increase in right pneumothorax Erlin Mack MD Chest Tube Insertion 07/30/15 0000 Signed Impressions: Service Date/Time: July 14:50 - CONCLUSION: Uncomplicated chest tube placement as above. Blaine Jackson MD Catheter Change 07/27/15 Signed Impressions: Service Date/Time: Monday, July 27, 2015 14:43 - CONCLUSION: Uncomplicated gastrostomy tube exchange as above. Blaine Jackson MD Tunnelled Chest Tube Removal 07/17/15 Signed Impressions: Service Date/Time: Friday, July 17, 2015 00:00 - CONCLUSION: Uncomplicated chest tube removal. Erlin Mack MD Chest CT 07/11/15 Signed Impressions: Service Date/Time: Saturday, July 11, 2015 09:49 - CONCLUSION: Scattered patchy densities significantly improved from previous study. Tiny anterior right basilar pneumothorax. Right-sided chest tube in good position. Néstor Matamoros MD Head CT 06/18/151902 Signed Impressions: Service Date/Time: June 19:31 - CONCLUSION: Diffuse atrophy unchanged. No acute intracranial findings. Kush Briscoe MD Abdomen/Pelvis CT 06/18/151902 Signed Impressions: Service Date/Time: June 19:36 - CONCLUSION: 1. Chronic nonspecific urinary bladder wall thickening. Bladder collapsed with Putnam catheter in place. 2. Chronic bilateral mid to lower lung zone groundglass opacity. 3. Nonobstructing left renal calculus. 4. Distended rectum. Kush Briscoe MD Objective Remarks patient on vent eyes open, pupils reactive, anicteric, trach in place decrease breath sounds bilaterally, pigtail catheter in place regular rhythm good bowel sounds, PEG in place extremities - no edema, right leg is crossed over the left leg- flexion contracted both upper extremities- moves spontaneously condom catheter in place Procedures 07/26- PEG replacement 07/29- pigtail catheter placement for new pneumothorax 07/29 A/P Assessment and Plan 55 years old male with tracheostomy and PEG tube [facility] resident admitted for: Acute on chronic respiratory failure- going into respiratory fatigue- place back on ventilator 07/28 Chronic trach, Pneumonia recurrent Right pneumothorax status post pigtail catheter again 07/29 Put back on ventilator AC mode 30% Fi02 5 cm PEEP - 07/28. Suction secretions Duo nebs 4 times a day and when necessary albuterol. Dr. jarod vicente Toxic metabolic Encephalopathy - chronic Parkinson's disease Cognitive disorder/Underlying dementia Depression CT head 06/18/15: - diffuse atrophy unchanged. No acute intracranial findings Continue Sinemet 25/100 3 times a day via PEG, Seroquel 50 mg twice a day, olanzapine 5 mg a night, Klonopin 2 mg every 8 hours, Paxil 20 daily and Neurontin 300 mg twice a day. These medications have been slowly titrated up since admission Continue Roxanol 5 mg every 4 hours when necessary pain and fentanyl patch 50 g every 3 days for pain management. Cardiac History of orthostasis History of CAD, HLP, Hypertension Continue Midodrine 5 mg twice a day Monitor HR and BP keep MAP>65mmHg GI: Malnutrition/protein calorie - moderate Status post PEG Hemorrhoids Gastroesophageal reflux disease - Tolerating Jevity 1.5 at 60 cc an hour. - Current Colace/senna for bowel regimen. /metabolic: Nonobstructing left renal calculus Hypernatremia - resolved - Monitor renal function, I/O's. electrolytes replacement per protocol. - Continue on Free H20 200ml 3 times a day monitor ID: Candiduria ESBL positive Klebsiella/Pseudomonas pneumonia MRSA colonization - Multidrug resistant UTI- ESBL 02/19/15 , MRSA + 03/20/15 - Heena glabrata in urine 03/19/15 - Recheck blood, sputum and urine cultures 07/06 no growth - 06/17 - blood cultures 2 - CONS/staph epi - 06/17 - sputum - ESBL positive Klebsiella/Pseudomonas Treated 15 days with tobramycin aerosols twice a day. - 06/17 - urine - C. glabrata/tropicalis - treated with Diflucan --Abx monitor for signs of infections ( Fever, WBC) Endo: --SSI if needed for glycemic control Heme Anemia - Monitor CBC MSK Bilateral lower extremity Contractures Stage II DU - Wound care evaluate and treat - Continue physical therapy Prophylaxis - GI - Prevacid - DVT - SCDs/Lovenox will d/w family- hospice candidate Claire Queen MD Jul 30, 2015 16:34 Claire Queen MD Jul 30, 2015 16:34 Claire Queen MD Jul 30, 2015 16:34
--- NOTE | 2015-07-30 16:34 | HHI.HCSW ---
Hand Folder Visit Significant Family/Friend Spoke with patient's daughter, Radha briefly as she was at work. She reports she came to visit her father a few weeks ago and believes he was happy to see her, was smiling. She asks how he was doing, reviewed with her changes in breathing and increased secretions per EMR notes. She verbalizes no questions at this time. Goals continue to remain aggressive. Confirmed she has palliative care contact information. . Follow Up Visit Palliative care will continue to follow throughout hospitalization. SW will follow as needed for emotional and social support. Sulma Taylor Jul 30, 2015 16:34
--- NOTE | 2015-07-30 17:11 | HHI.PR ---
Subjective Remarks 54 YOWM with ChRF,Trach, multiple uti No fever On Fentanyl patch Gets anxious. No Fever Developed right PTx Has right chest tube placed Objective Vital Signs Vital Signs Date Time Temp Pulse Resp B/P Pulse Ox O2 Delivery O2 Flow Rate FiO2 07/30/15 16:16 95 30 07/30/15 16:00 81 07/30/15 15:31 100 100 07/30/15 14:00 91 07/30/15 13:06 97 30 07/30/15 12:00 98.0 78 24 99/56 99 07/30/15 12:00 78 07/30/15 12:00 30 07/30/15 10:15 97 30 07/30/15 10:00 87 07/30/15 08:00 85 07/30/15 08:00 97.8 85 26 99/62 97 07/30/15 08:00 30 07/30/15 07:47 98 30 07/30/15 06:00 85 07/30/15 04:17 97 30 07/30/15 04:00 70 07/30/15 04:00 96.0 70 21 93/54 97 07/30/15 04:00 30 07/30/15 02:00 71 07/30/15 00:15 96 35 07/30/15 00:00 30 07/30/15 00:00 80 07/30/15 00:00 97.6 80 18 88/61 96 07/29/15 22:00 86 07/29/15 21:04 99 30 07/29/15 20:00 98.1 93 21 101/69 96 07/29/15 20:00 93 07/29/15 20:00 30 07/29/15 18:00 94 07/29/15 17:48 96 30 I/O 07/29/15 07/29/15 07/29/15 07/30/15 07/30/15 07/30/15 07:00 15:00 23:00 07:00 15:00 23:00 Intake Total 595 ml 240 ml 1324 ml 852 ml 555 ml Output Total 500 ml 300 ml 800 ml 0 ml 200 ml Balance 95 ml -60 ml 524 ml 852 ml 355 ml IV Total 62 ml 111 ml 97 ml Tube Feeding 345 ml 1062 ml 541 ml 258 ml Other 250 ml 240 ml 200 ml 200 ml 200 ml Output Urine Total 500 ml 300 ml 800 ml 0 ml 200 ml # Bowel Movements 1 0 0 1 Result Diagram: 07/27/1540107/27/15401 Objective Remarks GENERAL: MBMN male on Vent. SKIN: Warm and dry. HEAD: Normocephalic. EYES: No scleral icterus. No injection or drainage. NECK: Supple, trachea midline. No JVD or lymphadenopathy. has trach CARDIOVASCULAR: Regular rate and rhythm without murmurs, gallops, or rubs. RESPIRATORY: Breath sounds equal bilaterally. No accessory muscle use. GASTROINTESTINAL: Abdomen soft, non-tender, nondistended. PEG tube in place MUSCULOSKELETAL: No cyanosis, or edema. BACK: Nontender without obvious deformity. No CVA tenderness. A/P Assessment and Plan VDRF S/P Trach Parkinson's diasease Dementia UTI Small PTX--s/p right chest tube placement 07/29 PLAN: ABX Meropenm, Diflucan and Tobra nebs TF Add Ativan 0.5 mg tid Cont CPAP Chest tube to suction Severiano Ag MD Jul 30, 2015 17:11
[2015-07-30] MEDS: OLANZapine 2.5 MG TAB GT SCH (19:36)
[2015-07-30] MEDS: ENOXAPARIN SODIUM 30 MG/0.3 ML SYRINGE SQ SCH (21:44)
[2015-07-31] VITALS (19 sets, daily range): BP systolic 96–111; BP diastolic 58–73; PULSE 82–98; RESP 23–32; TEMP 97.1–98.8; O2SAT 95–100
[2015-07-31] MEDS: RESP: ALBUTEROL 2.5 MG/3 ML NEB (PRN) INH ×3 (03:39→15:31)
[2015-07-31] MEDS: RESP: SODIUM CHLORIDE 3% 4 ML NEB NEB SCH ×4 (03:39→20:56)
[2015-07-31] MEDS: FREE WATER G-TUBE SCH ×3 (05:35→21:46)
[2015-07-31] MEDS: CARBIDOPA/LEVODOPA 25 MG/100 MG TAB GT SCH ×3 (05:35→21:45)
[2015-07-31] MEDS: clonazePAM 1 MG TAB PO SCH ×3 (05:35→21:45)
--- NOTE | 2015-07-31 06:15 | RADRPT ---
EXAM DATE/TIME: 07/31/2015 05:20 [facility] COMPARISON: CHEST SINGLE AP, July 30, 2015, 8:11. CHEST EXPIRATION ONLY, July 08, 2015, 2:00. INDICATIONS : Evaluate for pneumothorax. MEDICAL HISTORY : Pneumothorax, right. SURGICAL HISTORY : Chest tube, right. ENCOUNTER: Subsequent ACUITY: 1 month PAIN SCORE: Non-responsive. LOCATION: Bilateral chest FINDINGS: Single expiratory view of the chest. Tracheostomy tube remains in place. Right sided pigtail chest ca theter is seen at the right lung apex. There is evidence of a right sided pneumothorax seen in the up per, mid, and lower lung zones measuring up to 1 cm in thickness. Skin fold is seen medial to the pne umothorax. Lungs are clear. No evidence of pleural effusion. Cardiomediastinal silhouette unchanged. CONCLUSION: Right-sided pneumothorax very similar to the prior study. Right-sided chest tube juno ins in place. Kush Briscoe MD on July 31, 2015 at 6:07 Board Certified Radiologist. This report was verified electronically.
[2015-07-31] MEDS: PROPOFOL 1000 MG/100 ML INJ 100 ML IV SCH (07:13)
[2015-07-31] MEDS: PARoxetine HCL 20 MG TAB G-TUBE SCH (09:08)
[2015-07-31] MEDS: QUEtiapine FUMARATE 25 MG TAB G-TUBE SCH ×2 (09:08→21:45)
[2015-07-31] MEDS: LACTOBACILLUS ACIDOPHILUS TAB PO SCH ×3 (09:08→17:00)
[2015-07-31] MEDS: DOCUSATE SODIUM 100 MG/10 ML UDC PO SCH ×2 (09:08→21:45)
[2015-07-31] MEDS: LANSOPRAZOLE SOLUTAB 30 MG TAB NG SCH (09:08)
[2015-07-31] MEDS: SENNOSIDES SYRUP 8.8 MG/5 ML CUP PO SCH (09:08)
[2015-07-31] MEDS: MIDODRINE 5 MG TAB G-TUBE SCH ×2 (09:08→21:45)
[2015-07-31] MEDS: GABAPENTIN 300 MG CAP G-TUBE SCH ×2 (09:08→21:45)
[2015-07-31] MEDS: ARTIFICIAL TEARS OPTH SOLN 15 ML BTL EACH EYE SCH ×3 (09:09→16:59)
[2015-07-31] MEDS: SODIUM CHLORIDE 0.9% FLUSH 5 ML FLUSH IVF SCH ×2 (09:09→21:46)
[2015-07-31] MEDS: CHLORHEXIDINE 0.12% (ORAL KIT) 15 ML CUP MT SCH ×2 (09:10→21:45)
--- NOTE | 2015-07-31 10:23 | HHI.PR ---
Subjective Remarks patient on diprivan drip on vent 30% Fi02 requiring frequent suctioning Objective Vitals Vital Signs Date Time Temp Pulse Resp B/P Pulse Ox O2 Delivery O2 Flow Rate FiO2 07/31/15 10:13 98 30 07/31/15 09:06 30 07/31/15 08:00 96 07/31/15 08:00 30 07/31/15 08:00 98.2 96 32 111/71 99 07/31/15 07:48 98 30 07/31/15 06:00 92 07/31/15 04:00 98.8 86 23 102/58 100 07/31/15 04:00 86 07/31/15 04:00 30 07/31/15 03:56 100 30 07/31/15 02:00 90 07/31/15 01:11 97 30 07/31/15 00:00 97.1 82 26 96/64 100 07/31/15 00:00 30 07/31/15 00:00 82 07/30/15 22:26 99 35 07/30/15 22:00 87 07/30/15 20:07 18 30 07/30/15 20:00 86 07/30/15 20:00 30 07/30/15 20:00 97.6 86 25 104/72 98 07/30/15 16:16 95 30 07/30/15 16:00 81 07/30/15 16:00 30 07/30/15 16:00 98.3 89 24 98/67 96 07/30/15 15:31 100 100 07/30/15 14:00 91 07/30/15 13:06 97 30 07/30/15 12:00 98.0 78 24 99/56 99 07/30/15 12:00 78 07/30/15 12:00 30 I/O 07/30/15 07/30/15 07/30/15 07/31/15 07/31/15 07/31/15 07:00 15:00 23:00 07:00 15:00 23:00 Intake Total 852 ml 555 ml 648 ml 834 ml Output Total 0 ml 200 ml 500 ml 475 ml Balance 852 ml 355 ml 148 ml 359 ml IV Total 111 ml 97 ml 64 ml 87 ml Tube Feeding 541 ml 258 ml 384 ml 547 ml Other 200 ml 200 ml 200 ml 200 ml Output Urine Total 0 ml 200 ml 450 ml 475 ml Chest Tube Drainage Total 50 ml # Bowel Movements 1 0 1 Result Diagram: 07/27/1540107/27/15401 Imaging Last Impressions Chest X-Ray 07/31/15 Signed Impressions: Service Date/Time: Friday, July 31, 2015 05:20 - CONCLUSION: Right-sided pneumothorax very similar to the prior study. Right-sided chest tube remains in place. Kush Briscoe MD Chest Tube Insertion 07/30/15 Signed Impressions: Service Date/Time: July 14:50 - CONCLUSION: Uncomplicated chest tube placement as above. Blaine Jackson MD Catheter Change 07/27/15 Signed Impressions: Service Date/Time: Monday, July 27, 2015 14:43 - CONCLUSION: Uncomplicated gastrostomy tube exchange as above. Blaine Jackson MD Tunnelled Chest Tube Removal 07/17/15 Signed Impressions: Service Date/Time: Friday, July 17, 2015 00:00 - CONCLUSION: Uncomplicated chest tube removal. Erlin Mack MD Chest CT 07/11/15 Signed Impressions: Service Date/Time: Saturday, July 11, 2015 09:49 - CONCLUSION: Scattered patchy densities significantly improved from previous study. Tiny anterior right basilar pneumothorax. Right-sided chest tube in good position. Néstor Matamoros MD Head CT 06/18/151902 Signed Impressions: Service Date/Time: June 19:31 - CONCLUSION: Diffuse atrophy unchanged. No acute intracranial findings. Kush Briscoe MD Abdomen/Pelvis CT 06/18/151902 Signed Impressions: Service Date/Time: June 19:36 - CONCLUSION: 1. Chronic nonspecific urinary bladder wall thickening. Bladder collapsed with Valdez catheter in place. 2. Chronic bilateral mid to lower lung zone groundglass opacity. 3. Nonobstructing left renal calculus. 4. Distended rectum. Kush Briscoe MD Objective Remarks patient on vent pupils reactive, anicteric, trach in place decrease breath sounds bilaterally, few rhonchi pigtail catheter in place regular rhythm good bowel sounds, PEG in place extremities - no edema, right leg is crossed over the left leg- flexion contracted both upper extremities- moves spontaneously condom catheter in place Procedures 07/26- PEG replacement 07/29- pigtail catheter placement for new pneumothorax 07/29 Urinary Catheter: Yes Valdez insert reason: Obstruction/Retention Date of Insertion: Jul 30, 2015 A/P Assessment and Plan 55 years old male with tracheostomy and PEG tube [facility] resident admitted for: Acute on chronic respiratory failure- going into respiratory fatigue- place back on ventilator 07/28 Chronic trach, Pneumonia recurrent Right pneumothorax status post pigtail catheter again 07/29 Put back on ventilator AC mode 30% Fi02 5 cm PEEP - 07/28. Suction secretions Duo nebs 4 times a day and when necessary albuterol. Dr. Ag ff- for vent management and weaning Toxic metabolic Encephalopathy - chronic Parkinson's disease Cognitive disorder/Underlying dementia Depression CT head 06/18/15: - diffuse atrophy unchanged. No acute intracranial findings Continue Sinemet 25/100 3 times a day via PEG, Seroquel 50 mg twice a day, olanzapine 5 mg a night, Klonopin 2 mg every 8 hours, Paxil 20 daily and Neurontin 300 mg twice a day. These medications have been slowly titrated up since admission Continue Roxanol 5 mg every 4 hours when necessary pain and fentanyl patch 50 g every 3 days for pain management. Cardiac History of orthostasis History of CAD, HLP, Hypertension Continue Midodrine 5 mg twice a day Monitor HR and BP keep MAP>65mmHg GI: Malnutrition/protein calorie - moderate Status post PEG Hemorrhoids Gastroesophageal reflux disease - Tolerating Jevity 1.5 at 60 cc an hour. - Current Colace/senna for bowel regimen. /metabolic: Nonobstructing left renal calculus Hypernatremia - resolved Acute urinary retention - Monitor renal function, I/O's. electrolytes replacement per protocol. - Continue on Free H20 200ml 3 times a day monitor -valdez placed 07/29 ID: Candiduria ESBL positive Klebsiella/Pseudomonas pneumonia MRSA colonization - Multidrug resistant UTI- ESBL 02/19/15 , MRSA + 03/20/15 - Heena glabrata in urine 03/19/15 - Recheck blood, sputum and urine cultures 07/06 no growth - 06/17 - blood cultures 2 - CONS/staph epi - 06/17 - sputum - ESBL positive Klebsiella/Pseudomonas Treated 15 days with tobramycin aerosols twice a day. - 06/17 - urine - C. glabrata/tropicalis - treated with Diflucan --Abx monitor for signs of infections ( Fever, WBC) Endo: --SSI if needed for glycemic control Heme Anemia - Monitor CBC MSK Bilateral lower extremity Contractures Stage II DU - Wound care evaluate and treat - Continue physical therapy Prophylaxis - GI - Prevacid - DVT - SCDs/Lovenox will d/w family- hospice candidate Claire Queen MD Jul 31, 2015 10:23
--- NOTE | 2015-07-31 11:29 | HHI.PR ---
Subjective Remarks 54 YOWM with ChRF,Trach, multiple uti No fever On Fentanyl patch Gets anxious. No Fever Developed right PTx Has right chest tube placed Small air leak Mod amount of trach secretions Objective Vital Signs Vital Signs Date Time Temp Pulse Resp B/P Pulse Ox O2 Delivery O2 Flow Rate FiO2 07/31/15 10:13 98 30 07/31/15 09:06 30 07/31/15 08:00 96 07/31/15 08:00 30 07/31/15 08:00 98.2 96 32 111/71 99 07/31/15 07:48 98 30 07/31/15 06:00 92 07/31/15 04:00 98.8 86 23 102/58 100 07/31/15 04:00 86 07/31/15 04:00 30 07/31/15 03:56 100 30 07/31/15 02:00 90 07/31/15 01:11 97 30 07/31/15 00:00 97.1 82 26 96/64 100 07/31/15 00:00 30 07/31/15 00:00 82 07/30/15 22:26 99 35 07/30/15 22:00 87 07/30/15 20:07 18 30 07/30/15 20:00 86 07/30/15 20:00 30 07/30/15 20:00 97.6 86 25 104/72 98 07/30/15 16:16 95 30 07/30/15 16:00 81 07/30/15 16:00 30 07/30/15 16:00 98.3 89 24 98/67 96 07/30/15 15:31 100 100 07/30/15 14:00 91 07/30/15 13:06 97 30 07/30/15 12:00 98.0 78 24 99/56 99 07/30/15 12:00 78 07/30/15 12:00 30 I/O 07/30/15 07/30/15 07/30/15 07/31/15 07/31/15 07/31/15 07:00 15:00 23:00 07:00 15:00 23:00 Intake Total 852 ml 555 ml 648 ml 834 ml Output Total 0 ml 200 ml 500 ml 475 ml Balance 852 ml 355 ml 148 ml 359 ml IV Total 111 ml 97 ml 64 ml 87 ml Tube Feeding 541 ml 258 ml 384 ml 547 ml Other 200 ml 200 ml 200 ml 200 ml Output Urine Total 0 ml 200 ml 450 ml 475 ml Chest Tube Drainage Total 50 ml # Bowel Movements 1 0 1 Result Diagram: 07/27/1540107/27/15401 Objective Remarks GENERAL: MBMN male on Vent. SKIN: Warm and dry. HEAD: Normocephalic. EYES: No scleral icterus. No injection or drainage. NECK: Supple, trachea midline. No JVD or lymphadenopathy. has trach CARDIOVASCULAR: Regular rate and rhythm without murmurs, gallops, or rubs. RESPIRATORY: Breath sounds equal bilaterally. No accessory muscle use. GASTROINTESTINAL: Abdomen soft, non-tender, nondistended. PEG tube in place MUSCULOSKELETAL: No cyanosis, or edema. BACK: Nontender without obvious deformity. No CVA tenderness. A/P Assessment and Plan VDRF S/P Trach Parkinson's diasease Dementia UTI Small PTX--s/p right chest tube placement 07/29 PLAN: ABX Meropenm, Diflucan and Tobra nebs TF Ativan 0.5 mg tid Cont CPAP Chest tube to suction CXR in AM. Severiano Ag MD Jul 31, 2015 11:29
--- NOTE | 2015-07-31 14:49 | PD.RAD ---
Post Procedure Progress Note Pre Procedure Diagnosis: (1) Pneumothorax on right Post Procedure Diagnosis: (1) Pneumothorax on right Procedure Date: Jul 31, 2015 Supervising Radiologist: Blaine Jackson Anesthesia: Local Plan of Activity Patient to Unit: Critical Care Patient Condition: Poor Additional Comments: Continue small right pneumothorax on follow up cxr tube upsized to 12 macedonian. See PACS Report for procedural detail/treatment Blaine Jackson MD Jul 31, 2015 14:49
--- NOTE | 2015-07-31 16:55 | RADRPT ---
EXAM DATE/TIME: 07/31/2015 14:34 [facility] COMPARISON: CHEST EXPIRATION ONLY, July 31, 2015, 5:20. CHEST TUBE PLACEMENT, RIGHT, July 30, 2015, 14:50. INDICATIONS : Patient presents with severe sepsis and pneumothorax in need of chest tube reposition. MEDICAL HISTORY : Parkinson's disease Advanced dementia Hyponatremia Pneumonia HTN GERD Diabetes Hx UTI Encephalopathy SURGICAL HISTORY : Oral throat surgery Right chest tube placed prior 07/30/15 ENCOUNTER: Subsequent ACUITY: 1 day PAIN SCORE: 0/10 LOCATION: Unresponsive FLUORO TIME: 1.5 minutes minutes cc DEVICE(S): 1.) 12 Cymraes non-locking catheter PROCEDURE : 1. Fluoroscopically guided chest tube reposition. 2. Conscious sedation with continuous EKG and oximetry monitoring. The risks, benefits and alternatives to the procedure were explained and verbal and written consent w as obtained. The site was prepped in sterile fashion. Full sterile technique was used, including ca p, mask, sterile gloves and gown and a large sterile sheet. Hand hygiene and 2% chlorhexidine and/or betadine/alcohol prep was utilized per protocol for cutaneous antisepsis. The skin and subcutaneous tissues were infiltrated with local anesthetic solution. The patient underwent chest x-ray approximately 24 hours post placement of the initial 10 Cymraes tube . A followup chest x-ray demonstrated persistent pneumothorax in spite of adequate suction. A new 12 Cymraes tube was advanced through the existing track in position at the lung apex without dif ficulty. There was complete reinflation of the right lung. Conscious sedation was performed with the prescribed dosages and duration as above. The patient lynsey ated the procedure well and there were no complications. EKG and oximetry remained stable throughout the procedure. The patient was sent to post anesthesia recovery in stable condition. CONCLUSION: Uncomplicated reposition of previously placed chest tube as above. Blaine Jackson MD on July 31, 2015 at 16:51 Board Certified Radiologist. This report was verified electronically.
[2015-07-31] MEDS: OLANZapine 2.5 MG TAB GT SCH (21:45)
[2015-07-31] MEDS: ENOXAPARIN SODIUM 30 MG/0.3 ML SYRINGE SQ SCH (21:45)
[2015-08-01] VITALS (18 sets, daily range): BP systolic 89–120; BP diastolic 59–86; PULSE 81–92; RESP 21–31; TEMP 98.2–99; O2SAT 96–100
[2015-08-01] MEDS: RESP: SODIUM CHLORIDE 3% 4 ML NEB NEB SCH ×4 (04:01→20:32)
[2015-08-01] MEDS: FREE WATER G-TUBE SCH ×3 (05:21→22:00)
[2015-08-01] MEDS: clonazePAM 1 MG TAB PO SCH ×3 (05:21→22:57)
[2015-08-01] MEDS: CARBIDOPA/LEVODOPA 25 MG/100 MG TAB GT SCH ×3 (05:21→22:57)
--- NOTE | 2015-08-01 06:25 | RADRPT ---
EXAM DATE/TIME: 08/01/2015 04:43 [facility] COMPARISON: CHEST EXPIRATION ONLY, July 31, 2015, 5:20. INDICATIONS : Shortness of breath, possible pulmonary disease. MEDICAL HISTORY : Hypertension. Gastroesophageal reflux disease. Diabetes mellitus type II. SURGICAL HISTORY : Tracheostomy ENCOUNTER: Subsequent ACUITY: 1 month PAIN SCORE: Non-responsive. LOCATION: Bilateral chest FINDINGS: A single frontal expiratory view of the chest was performed. There is a right-sided pigtail catheter coiling in the right lung apex with a miniscule amount of residual pleural air and a small remaining right sided pneumothorax . It is smaller than on the previous day. The lungs are symmetrically aerat ed and clear. No evidence of pneumothorax. Mediastinal structures are in the midline. Tracheostomy tube is in good position The cardio-mediastinal contours and bronchopulmonary markings are unremarkable for an expiratory exam . Osseous structures are intact. CONCLUSION: Pigtail catheter remains overlying the right lung apex with a clearly smaller pneumothorax today than on the previous study Nghia Mason MD on August 01, 2015 at 6:21 Board Certified Radiologist. This report was verified electronically.
--- NOTE | 2015-08-01 08:48 | HHI.PR ---
Subjective Remarks patient on vent CPAP mode- 30% tolerating tube feedings Objective Vitals Vital Signs Date Time Temp Pulse Resp B/P Pulse Ox O2 Delivery O2 Flow Rate FiO2 08/01/15 08:31 100 30 08/01/15 04:01 96 30 08/01/15 04:00 30 08/01/15 04:00 84 08/01/15 04:00 98.7 84 23 98/59 97 08/01/15 02:00 83 08/01/15 00:28 98 35 08/01/15 00:00 30 08/01/15 00:00 99.0 85 21 89/59 97 08/01/15 00:00 85 07/31/15 22:00 91 07/31/15 21:00 30 07/31/15 20:56 100 30 07/31/15 20:00 90 07/31/15 20:00 30 07/31/15 20:00 97.6 90 30 107/66 97 07/31/15 18:00 94 07/31/15 16:00 93 07/31/15 16:00 30 07/31/15 16:00 98.0 98 24 100/62 97 07/31/15 15:06 100 30 07/31/15 15:06 100 100 07/31/15 14:00 94 07/31/15 12:59 96 30 07/31/15 12:00 30 07/31/15 12:00 97 07/31/15 12:00 98.0 97 26 108/73 95 07/31/15 10:13 98 30 07/31/15 10:00 96 07/31/15 09:06 30 I/O 07/31/15 07/31/15 07/31/15 08/01/15 08/01/15 08/01/15 07:00 15:00 23:00 07:00 15:00 23:00 Intake Total 834 ml 765 ml 581 ml 708 ml Output Total 475 ml 240 ml 200 ml 200 ml Balance 359 ml 525 ml 381 ml 508 ml IV Total 87 ml 0 ml Tube Feeding 547 ml 565 ml 381 ml 508 ml Other 200 ml 200 ml 200 ml 200 ml Output Urine Total 475 ml 240 ml 200 ml 200 ml # Bowel Movements 1 1 1 Imaging Last Impressions Chest X-Ray 08/01/15 0000 Signed Impressions: Service Date/Time: Saturday, August 01, 2015 04:43 - CONCLUSION: Pigtail catheter remains overlying the right lung apex with a clearly smaller pneumothorax today than on the previous study Nghia Mason MD Chest Tube Change 07/31/15 0000 Signed Impressions: Service Date/Time: Friday, July 31, 2015 14:34 - CONCLUSION: Uncomplicated reposition of previously placed chest tube as above. Blaine Jackson MD Chest Tube Insertion 07/30/15 0000 Signed Impressions: Service Date/Time: July 14:50 - CONCLUSION: Uncomplicated chest tube placement as above. Blaine Jackson MD Catheter Change 07/27/15 0000 Signed Impressions: Service Date/Time: Monday, July 27, 2015 14:43 - CONCLUSION: Uncomplicated gastrostomy tube exchange as above. Blaine Jackson MD Tunnelled Chest Tube Removal 07/17/15 0000 Signed Impressions: Service Date/Time: Friday, July 17, 2015 00:00 - CONCLUSION: Uncomplicated chest tube removal. Erlin Mack MD Chest CT 07/11/15 Signed Impressions: Service Date/Time: Saturday, July 11, 2015 09:49 - CONCLUSION: Scattered patchy densities significantly improved from previous study. Tiny anterior right basilar pneumothorax. Right-sided chest tube in good position. Néstor Matamoros MD Head CT 06/18/151902 Signed Impressions: Service Date/Time: June 19:31 - CONCLUSION: Diffuse atrophy unchanged. No acute intracranial findings. Kush Briscoe MD Abdomen/Pelvis CT 06/18/151902 Signed Impressions: Service Date/Time: June 19:36 - CONCLUSION: 1. Chronic nonspecific urinary bladder wall thickening. Bladder collapsed with Valdez catheter in place. 2. Chronic bilateral mid to lower lung zone groundglass opacity. 3. Nonobstructing left renal calculus. 4. Distended rectum. Kush Briscoe MD Objective Remarks patient on vent pupils reactive, anicteric, oral mucosa/tongue/hard palate/lips- dry trach in place decrease breath sounds bilaterally, no rhonchi, no rales - pigtail catheter in place regular rhythm good bowel sounds, PEG in place extremities - no edema, right leg is crossed over the left leg- flexion contracted both upper extremities- moves spontaneously condom catheter in place Procedures 07/26- PEG replacement 07/29- pigtail catheter placement for new pneumothorax 07/29 Urinary Catheter: Yes Valdez insert reason: Obstruction/Retention Date of Insertion: Jul 30, 2015 A/P Assessment and Plan 55 years old male with tracheostomy and PEG tube [facility] resident admitted for: Acute on chronic respiratory failure- going into respiratory fatigue- place back on ventilator 07/28 Chronic trach, Pneumonia recurrent Right pneumothorax status post pigtail catheter again 07/29 Put back on ventilator AC mode 30% Fi02 5 cm PEEP - 07/28. - now on CPAP Suction secretions Duo nebs 4 times a day and when necessary albuterol. Dr. Ag ff/Radiology ff along with us for chest tube management Oral care -vigorously repeat CXR this am--smaller PTX Toxic metabolic Encephalopathy - chronic Parkinson's disease Cognitive disorder/Underlying dementia Depression CT head 06/18/15: - diffuse atrophy unchanged. No acute intracranial findings Continue Sinemet 25/100 3 times a day via PEG, Seroquel 50 mg twice a day, olanzapine 5 mg a night, Klonopin 2 mg every 8 hours, Paxil 20 daily and Neurontin 300 mg twice a day. These medications have been slowly titrated up since admission Continue Roxanol 5 mg every 4 hours when necessary pain and fentanyl patch 50 g every 3 days for pain management. Cardiac History of orthostasis History of CAD, HLP, Hypertension Continue Midodrine 5 mg twice a day Monitor HR and BP keep MAP>65mmHg GI: Malnutrition/protein calorie - moderate Status post PEG Hemorrhoids Gastroesophageal reflux disease - Tolerating Jevity 1.5 at 60 cc an hour. - Current Colace/senna for bowel regimen. /metabolic: Nonobstructing left renal calculus Hypernatremia - resolved Acute Urinary retention - valdez placed 07/29 - Monitor renal function, I/O's. electrolytes replacement per protocol. - Continue on Free H20 200ml 3 times a day monitor ID: Candiduria ESBL positive Klebsiella/Pseudomonas pneumonia MRSA colonization - Multidrug resistant UTI- ESBL 02/19/15 , MRSA + 03/20/15 - Heena glabrata in urine 03/19/15 - Recheck blood, sputum and urine cultures 07/06 no growth - 06/17 - blood cultures 2 - CONS/staph epi - 06/17 - sputum - ESBL positive Klebsiella/Pseudomonas Treated 15 days with tobramycin aerosols twice a day. - 06/17 - urine - C. glabrata/tropicalis - treated with Diflucan --Abx monitor for signs of infections ( Fever, WBC) Endo: --SSI if needed for glycemic control Heme Anemia - Monitor CBC MSK Bilateral lower extremity Contractures Stage II DU - Wound care evaluate and treat - Continue physical therapy Prophylaxis - GI - Prevacid - DVT - SCDs/Lovenox will try to d/w family- hospice candidate Claire Queen MD Aug 01, 2015 08:47
[2015-08-01] MEDS: SENNOSIDES SYRUP 8.8 MG/5 ML CUP PO SCH (09:00)
[2015-08-01] MEDS: DOCUSATE SODIUM 100 MG/10 ML UDC PO SCH ×2 (09:00→20:27)
[2015-08-01] MEDS: CHLORHEXIDINE 0.12% (ORAL KIT) 15 ML CUP MT SCH ×2 (09:57→20:26)
[2015-08-01] MEDS: REMOVE OLD PATCH TD SCH ×2 (09:58→15:16)
[2015-08-01] MEDS: ARTIFICIAL TEARS OPTH SOLN 15 ML BTL EACH EYE SCH ×2 (09:58→15:16)
[2015-08-01] MEDS: MIDODRINE 5 MG TAB G-TUBE SCH ×2 (09:58→20:27)
[2015-08-01] MEDS: GABAPENTIN 300 MG CAP G-TUBE SCH ×2 (09:58→20:27)
[2015-08-01] MEDS: PARoxetine HCL 20 MG TAB G-TUBE SCH (09:59)
[2015-08-01] MEDS: LANSOPRAZOLE SOLUTAB 30 MG TAB NG SCH (09:59)
[2015-08-01] MEDS: LACTOBACILLUS ACIDOPHILUS TAB PO SCH ×2 (09:59→15:15)
[2015-08-01] MEDS: QUEtiapine FUMARATE 25 MG TAB G-TUBE SCH ×2 (09:59→20:27)
[2015-08-01] MEDS: fentaNYL 50 MCG/HR PATCH TD SCH (10:00)
[2015-08-01] MEDS: SODIUM CHLORIDE 0.9% FLUSH 5 ML FLUSH IVF SCH ×2 (10:00→20:27)
[2015-08-01] MEDS: OLANZapine 2.5 MG TAB GT SCH (20:27)
[2015-08-01] MEDS: ENOXAPARIN SODIUM 30 MG/0.3 ML SYRINGE SQ SCH (22:58)
[2015-08-02] VITALS (19 sets, daily range): BP systolic 89–135; BP diastolic 58–87; PULSE 71–93; RESP 30–40; TEMP 97.2–100.2; O2SAT 92–100
[2015-08-02] MEDS: RESP: SODIUM CHLORIDE 3% 4 ML NEB NEB SCH ×4 (03:42→20:22)
[2015-08-02] MEDS: FREE WATER G-TUBE SCH ×3 (06:00→21:44)
[2015-08-02] MEDS: CARBIDOPA/LEVODOPA 25 MG/100 MG TAB GT SCH ×3 (06:03→21:44)
[2015-08-02] MEDS: clonazePAM 1 MG TAB PO SCH ×3 (06:04→21:43)
[2015-08-02] MEDS: LANSOPRAZOLE SOLUTAB 30 MG TAB NG SCH (08:48)
[2015-08-02] MEDS: PARoxetine HCL 20 MG TAB G-TUBE SCH (08:49)
[2015-08-02] MEDS: LACTOBACILLUS ACIDOPHILUS TAB PO SCH ×3 (08:49→18:32)
[2015-08-02] MEDS: MIDODRINE 5 MG TAB G-TUBE SCH ×2 (08:49→21:44)
[2015-08-02] MEDS: QUEtiapine FUMARATE 25 MG TAB G-TUBE SCH ×2 (08:49→21:44)
[2015-08-02] MEDS: GABAPENTIN 300 MG CAP G-TUBE SCH ×2 (08:49→21:43)
[2015-08-02] MEDS: CHLORHEXIDINE 0.12% (ORAL KIT) 15 ML CUP MT SCH ×2 (08:50→21:44)
[2015-08-02] MEDS: ARTIFICIAL TEARS OPTH SOLN 15 ML BTL EACH EYE SCH ×3 (08:50→18:33)
[2015-08-02] MEDS: SENNOSIDES SYRUP 8.8 MG/5 ML CUP PO SCH (08:51)
[2015-08-02] MEDS: DOCUSATE SODIUM 100 MG/10 ML UDC PO SCH ×2 (08:51→21:00)
[2015-08-02] MEDS: SODIUM CHLORIDE 0.9% FLUSH 5 ML FLUSH IVF SCH ×2 (08:51→21:44)
--- NOTE | 2015-08-02 17:03 | HHI.PR ---
Subjective Remarks tolerating tube feedings on vent 40% Objective Vitals Vital Signs Date Time Temp Pulse Resp B/P Pulse Ox O2 Delivery O2 Flow Rate FiO2 08/02/15 14:56 95 40 08/02/15 14:00 92 08/02/15 12:02 94 30 08/02/15 12:00 30 08/02/15 12:00 86 08/02/15 12:00 100.2 86 30 91/58 94 08/02/15 10:00 90 08/02/15 08:11 97 30 08/02/15 08:00 93 08/02/15 08:00 30 08/02/15 08:00 98.8 93 40 99/64 92 08/02/15 06:00 91 08/02/15 04:11 100 30 08/02/15 04:00 86 08/02/15 04:00 97.2 86 35 135/87 100 08/02/15 04:00 30 08/02/15 02:00 71 08/02/15 01:22 96 30 08/02/15 00:00 97.8 90 33 89/60 96 08/02/15 00:00 30 08/02/15 00:00 90 08/01/15 22:08 96 30 08/01/15 22:00 82 08/01/15 20:26 96 30 08/01/15 20:00 83 08/01/15 20:00 30 08/01/15 20:00 98.2 82 30 120/77 97 08/01/15 18:00 85 I/O 08/01/15 08/01/15 08/01/15 08/02/15 08/02/15 08/02/15 07:00 15:00 23:00 07:00 15:00 23:00 Intake Total 708 ml 750 ml 1342 ml 740 ml 657 ml Output Total 200 ml 470 ml 175 ml 175 ml 230 ml Balance 508 ml 280 ml 1167 ml 565 ml 427 ml Intake Oral 0 ml 0 ml IV Total 0 ml 0 ml Tube Feeding 508 ml 750 ml 1082 ml 480 ml 657 ml Tube Irrigant 260 ml 260 ml Other 200 ml Output Urine Total 200 ml 450 ml 175 ml 175 ml 200 ml Chest Tube Drainage Total 20 ml 0 ml 0 ml 30 ml # Bowel Movements 1 4 2 3 1 Imaging Last Impressions Chest X-Ray 08/01/15 Signed Impressions: Service Date/Time: Saturday, August 01, 2015 04:43 - CONCLUSION: Pigtail catheter remains overlying the right lung apex with a clearly smaller pneumothorax today than on the previous study Nghia Mason MD Chest Tube Change 07/31/15 Signed Impressions: Service Date/Time: Friday, July 31, 2015 14:34 - CONCLUSION: Uncomplicated reposition of previously placed chest tube as above. Blaine Jackson MD Chest Tube Insertion 07/30/15 Signed Impressions: Service Date/Time: July 14:50 - CONCLUSION: Uncomplicated chest tube placement as above. Blaine Jackson MD Catheter Change 07/27/15 Signed Impressions: Service Date/Time: Monday, July 27, 2015 14:43 - CONCLUSION: Uncomplicated gastrostomy tube exchange as above. Blaine Jackson MD Tunnelled Chest Tube Removal 07/17/15 Signed Impressions: Service Date/Time: Friday, July 17, 2015 00:00 - CONCLUSION: Uncomplicated chest tube removal. Erlin Mack MD Chest CT 07/11/15 Signed Impressions: Service Date/Time: Saturday, July 11, 2015 09:49 - CONCLUSION: Scattered patchy densities significantly improved from previous study. Tiny anterior right basilar pneumothorax. Right-sided chest tube in good position. Néstor Matamoros MD Head CT 06/18/151902 Signed Impressions: Service Date/Time: June 19:31 - CONCLUSION: Diffuse atrophy unchanged. No acute intracranial findings. Kush Briscoe MD Abdomen/Pelvis CT 06/18/151902 Signed Impressions: Service Date/Time: June 19:36 - CONCLUSION: 1. Chronic nonspecific urinary bladder wall thickening. Bladder collapsed with Valdez catheter in place. 2. Chronic bilateral mid to lower lung zone groundglass opacity. 3. Nonobstructing left renal calculus. 4. Distended rectum. Kush Briscoe MD Objective Remarks patient on vent pupils reactive, anicteric, trach in place decrease breath sounds bilaterally, no rhonchi, no rales - pigtail catheter in place, right regular rhythm good bowel sounds, PEG in place extremities - no edema, right leg is crossed over the left leg- flexion contracted both upper extremities- moves spontaneously condom catheter in place Procedures 07/26- PEG replacement 07/29- right pigtail catheter placement for new pneumothorax 07/29 Date of Insertion: Jul 30, 2015 A/P Assessment and Plan 55 years old male with tracheostomy and PEG tube [facility] resident admitted for: Acute on chronic respiratory failure- place back on ventilator 07/28 Chronic tracheostomy Pneumonia recurrent Right pneumothorax status post pigtail catheter again 07/29 Put back on ventilator AC mode 30% Fi02 5 cm PEEP - 07/28. Suction secretions Duo nebs 4 times a day and when necessary Dr. Ag ff- for vent management and weaning Metabolic Encephalopathy - chronic Parkinson's disease Cognitive disorder/Underlying dementia Depression CT head 06/18/15: - diffuse atrophy unchanged. No acute intracranial findings Continue Sinemet 25/100 3 times a day via PEG, Seroquel 50 mg twice a day, olanzapine 5 mg a night, Klonopin 2 mg every 8 hours, Paxil 20 daily and Neurontin 300 mg twice a day. These medications have been slowly titrated up since admission Continue Roxanol 5 mg every 4 hours when necessary pain and fentanyl patch 50 g every 3 days for pain management. Cardiac History of orthostasis History of CAD, HLP, Hypertension Continue Midodrine 5 mg twice a day Monitor HR and BP keep MAP>65mmHg GI: Malnutrition/protein calorie - moderate Status post PEG Hemorrhoids Gastroesophageal reflux disease - Tolerating Jevity 1.5 at 60 cc an hour. - Current Colace/senna for bowel regimen. /metabolic: Nonobstructing left renal calculus Hypernatremia - resolved Acute urinary retention - Monitor renal function, I/O's. electrolytes replacement per protocol. - Continue on Free H20 200ml 3 times a day monitor -valdez placed 07/29 ID: Candiduria ESBL positive Klebsiella/Pseudomonas pneumonia MRSA colonization - Multidrug resistant UTI- ESBL 02/19/15 , MRSA + 03/20/15 - Heena glabrata in urine 03/19/15 - Recheck blood, sputum and urine cultures 07/06 no growth - 06/17 - blood cultures 2 - CONS/staph epi - 06/17 - sputum - ESBL positive Klebsiella/Pseudomonas Treated 15 days with tobramycin aerosols twice a day. - 06/17 - urine - C. glabrata/tropicalis - treated with Diflucan --off Abx. monitor for signs of infections ( Fever, WBC) Endo: --SSI if needed for glycemic control Heme Anemia - Monitor CBC MSK Bilateral lower extremity Contractures Stage II DU - Wound care evaluate and treat - Continue physical therapy Prophylaxis - GI - Prevacid - DVT - SCDs/Lovenox Claire Queen MD Aug 02, 2015 17:03 Claire Queen MD Aug 02, 2015 17:03 Claire Queen MD Aug 02, 2015 17:03
[2015-08-02] MEDS: CHLORHEXIDINE GLUCONATE 2 % 1 PACK (2 CLOTHS) TOP SCH (19:37)
[2015-08-02] MEDS: ENOXAPARIN SODIUM 30 MG/0.3 ML SYRINGE SQ SCH (21:43)
[2015-08-02] MEDS: OLANZapine 2.5 MG TAB GT SCH (21:44)
[2015-08-02] MEDS: MORPHINE SULFATE 4 MG/ML INJ IV PUSH PRN (21:48)
[2015-08-03] VITALS (20 sets, daily range): BP systolic 91–139; BP diastolic 61–93; PULSE 80–95; RESP 30–39; TEMP 97.8–101.3; O2SAT 96–100
[2015-08-03] MEDS: RESP: SODIUM CHLORIDE 3% 4 ML NEB NEB SCH ×4 (03:49→20:14)
[2015-08-03] MEDS: clonazePAM 1 MG TAB PO SCH ×3 (05:03→22:27)
[2015-08-03] MEDS: FREE WATER G-TUBE SCH ×3 (05:03→22:00)
[2015-08-03] MEDS: CARBIDOPA/LEVODOPA 25 MG/100 MG TAB GT SCH ×3 (05:03→22:27)
[2015-08-03 05:30] LABS: AUTOMATED NEUTROPHIL # 8.3 TH/MM3 (1.8-7.7); BASOPHIL # 0.1 TH/MM3 (0-0.2); BASOPHIL % 0.8 % (0.0-2.0); EOSINOPHIL # 1.2 TH/MM3 (0-0.4); EOSINOPHIL % 10.2 % (0.0-4.0); HEMATOCRIT 30.8 % (39.0-51.0); HEMO FLAGS DIFF FINAL; LYMPH % 13.4 % (9.0-44.0); LYMPHOCYTE # 1.6 TH/MM3 (1.0-4.8); MEAN CELL VOLUME 90.6 FL (80.0-100.0); MEAN CORPUSCULAR HEMOGLOBIN 28.8 PG (27.0-34.0); MEAN CORPUSCULAR HGB CONC 31.7 % (32.0-36.0); MONO % 6.8 % (0.0-8.0); NEUT % 68.8 % (16.0-70.0); PLATELET COUNT 216 TH/MM3 (150-450); RED CELL DISTRIBUTION WIDTH 13.2 % (11.6-17.2); WHITE BLOOD COUNT 12.1 TH/MM3 (4.0-11.0)
[2015-08-03] MEDS: MORPHINE SULFATE 4 MG/ML INJ IV PUSH PRN ×2 (05:41→22:29)
--- NOTE | 2015-08-03 06:19 | RADRPT ---
EXAM DATE/TIME: 08/03/2015 04:35 [facility] COMPARISON: CHEST SINGLE AP, July 29, 2015, 17:42. CHEST SINGLE AP, July 25, 2015, 7:51. CHEST SINGLE AP, July 24, 2015, 8:33. CHEST EXPIRATION ONLY, July 31, 2015, 5:20. CHEST EXPIRATION ONLY, August 01, 2015, 4 :43. CHEST SINGLE AP, July 30, 2015, 8:11. INDICATIONS : Shortness of breath, possible pulmonary disease. MEDICAL HISTORY : Hypertension. Gastroesophageal reflux disease. Diabetes mellitus type II. SURGICAL HISTORY : Tracheostomy ENCOUNTER: Subsequent ACUITY: 1 month PAIN SCORE: Non-responsive. LOCATION: Bilateral chest FINDINGS: Stable position to the pigtail right chest catheter with the tip at the right apex. There has been r eexpansion of the right lung and no residual pneumothorax seen. 12 mm faint oval opacity lower later al right lung probably represents nipple shadow. The left lung is clear. Tracheostomy and tubing pa rtially superimposed upon left upper lung. The heart is normal size. CONCLUSION: No residual pneumothorax seen; chest catheter stable position of the right apex. Tai Jaquez MD on August 03, 2015 at 6:14 Board Certified Radiologist. This report was verified electronically.
[2015-08-03] MEDS: LANSOPRAZOLE SOLUTAB 30 MG TAB NG SCH (08:06)
[2015-08-03] MEDS: PARoxetine HCL 20 MG TAB G-TUBE SCH (08:06)
[2015-08-03] MEDS: ARTIFICIAL TEARS OPTH SOLN 15 ML BTL EACH EYE SCH ×3 (08:06→17:26)
[2015-08-03] MEDS: QUEtiapine FUMARATE 25 MG TAB G-TUBE SCH ×2 (08:06→20:09)
[2015-08-03] MEDS: MIDODRINE 5 MG TAB G-TUBE SCH ×2 (08:06→20:09)
[2015-08-03] MEDS: DOCUSATE SODIUM 100 MG/10 ML UDC PO SCH (08:06)
[2015-08-03] MEDS: CHLORHEXIDINE 0.12% (ORAL KIT) 15 ML CUP MT SCH ×2 (08:06→20:08)
[2015-08-03] MEDS: LACTOBACILLUS ACIDOPHILUS TAB PO SCH ×3 (08:06→17:26)
[2015-08-03] MEDS: GABAPENTIN 300 MG CAP G-TUBE SCH ×2 (08:06→20:09)
[2015-08-03] MEDS: SENNOSIDES SYRUP 8.8 MG/5 ML CUP PO SCH (08:06)
[2015-08-03] MEDS: SODIUM CHLORIDE 0.9% FLUSH 5 ML FLUSH IVF SCH ×2 (08:07→20:10)
--- NOTE | 2015-08-03 13:08 | HHI.CCPN ---
Subjective Remarks/Hospital Course 06/17: Pt is a 54 yr man with multiple medial problems including Parkinson's disease, advanced dementia, hyponatremia, anxiety, pneumonia, GERD, cognitive disorder, and multidrug resistant UTI- ESBL02/19/15 , who resides in a shelter. Pt by report was found by staff in shelter to be less alert and having respiratory difficultly and fevers. Pt was brought to ED adn placed on ventilator. His workup was inclusive of labs, chest xray and ct head and abd/pelvis. WBC 16.4, +UTI, lactic acid 4, troponin ,0.02, BUN/ cre 18/ 0.76. CT head 06/18/15: diffuse atrophy unchanged. No acute intracranial findings ct abd/ pelvis with IV contrast: 06/18/15 Conclusion: 1. Chronic nonspecific urinary bladder wall thickening. Bladder collapsed with Putnam catheter in place. 2.Chronic bilateral mid to lower zone groundglass opacity. 3. Nonobstructing left renal calculus. 4. Distended rectum Pt admitted and fluid and abx ordered. 06/18: Drowsy, easily arousable. On mechanical ventilation via tracheostomy. Tachypneic. Resting tremor noted. 06/19: Drowsy, arousable. On mechanical ventilation via tracheostomy. 06/20: Drowsy, arousable. Remains on mechanical ventilation via tracheostomy. We'll repeat blood cultures, UA and urine cultures. Fluconazole IV added in view of yeast in urine. 07/06: Reconsulted as patient return to the ventilator on a right ventricular due to tachypnea. Low-grade temperatures. Tolerating tube feeding. Extremity encephalopathic demented patient with difficult neurological examination. 07/07: Status post chest tube placement by IR for right pneumothorax 07/06. Afebrile. Tolerating tube feeds. Positive BM. Currently tachypneic on the ventilator. Does not appear to be any acute distress. 07/08: Afebrile. Tolerating tube feeding. He is comfortable currently on CPAP trials 11/10. Positive BM. 07/09: Afebrile. Tolerating tube feeding. Appears comfortable on T bar. Positive BM. 07/10: Afebrile. Eyes are open. Remained on T piece overnight. Tolerating tube feeding. 07/11: MAXIMUM TEMPERATURE 100. Currently 98.6. Eyes are open. On ACV overnight secondary to "tachypnea and sweating". Switching back to PSV trials today. Goal is T piece during daytime, CPAP at night. 07/12: No acute events overnight. On PSV 15/5 -attempt TP up to 6 hours today. No pneumothorax on chest x-ray 07/13: Placed back on full ventilator support for tachypnea. Otherwise clinically unchanged. No fever today 07/14: Patient was on T piece yesterday evening, placed back on PSV overnight, patient mechanical ventilation this morning. Patient appears to be struggling with mechanical ventilation. Patient placed back on PSV with improvement 07/15: Patient placed back on mechanical ventilation last evening due to respiratory rate. It was indicated patient was tachypnea can the 40s. Patient on mechanical ventilation this time with respiration rate mid 20s. Chest tube still in place without any output, chest x-ray still indicating resolution of pneumothorax. 07/16: Patient seen and examined today. Patient placed back on mechanical ventilation overnight due to respiratory rate. Even on mechanical ventilation patient has respiration rate in the 30s. Patient afebrile, blood pressure stable. Continue vent weaning 07/17: Patient seen and examined. Currently afebrile. Currently on CPAP 15/5 @ 40%. Patient is awake with open mouth resting in bed in no apparent acute distress. Tolerating tube feeding. 2 bowel movements. 07/18: No neurological changes. Afebrile. 2 bowel moments. Tolerating tube feeding. We'll attempt TP trials today. On CPAP since 07/15 07/19 No events overnight. On CPAP with PS: 10, PEEP: 5 and FIO2 35%. Afebrile. On no sedation. 07/20 No events overnight. Tolerating CPAP. Afebrile. 07/21: Remains on CPAP. Attempt T piece trial today. Afebrile. One bowel movement. Tolerating tube feeding. 07/22: Afebrile. Positive BM. Tolerating tube feeding. Noted switched tracheostomy to #6 Shiley cuffed fenestrated. Neurologically unchanged 07/23: Afebrile. Positive BM. Tolerating tube feeding. Questionable leak in exchange trach. Place back on a rate/ACV overnight. Insufflated seems to be doing better at the present time. Will check chest x-ray. Possible he might need #6 XLT versus replacement of chronic #8 Shiley. 07/24: Tolerating TP today, RR in low 30s patient appears comfortable. No acute events overnight 07/25: Remains off the ventilator more than 36 hours now. Intermittently tachypneic probably breathing. Chest x-ray was clear yesterday. No acute events reported overnight. PEG not functioning per RN 08/02: Patient was transferred back to critical care service due to continuing ventilator management, tachypnea. Patient clinical status with no significant change. Patient with low-grade fever 100.2, Objective - Vital Signs Date Time Temp Pulse Resp B/P Pulse Ox O2 Delivery O2 Flow Rate FiO2 08/03/15 12:43 96 35 08/03/15 10:00 92 08/03/15 08:00 100.2 39 103/68 Intake and Output 08/02/15 08/02/15 08/03/15 08:00 16:00 00:00 Intake Total 740 ml 657 ml 737 ml Output Total 175 ml 230 ml 283 ml Balance 565 ml 427 ml 454 ml Result Diagram: 08/03/15 0330 Other Results Imaging Last Impressions Chest X-Ray 07/22/15 0600 Signed Impressions: Service Date/Time: Wednesday, July 22, 2015 04:17 - CONCLUSION: There has been no significant change when compared to the prior exam. John Anderson MD Tunnelled Chest Tube Removal 07/17/15 0000 Signed Impressions: Service Date/Time: Friday, July 17, 2015 00:00 - CONCLUSION: Uncomplicated chest tube removal. Erlin Mack MD Chest CT 07/11/15 0000 Signed Impressions: Service Date/Time: Saturday, July 11, 2015 09:49 - CONCLUSION: Scattered patchy densities significantly improved from previous study. Tiny anterior right basilar pneumothorax. Right-sided chest tube in good position. Néstor Matamoros MD Chest Tube Insertion 07/07/15 0000 Signed Impressions: Service Date/Time: Tuesday, July 07, 2015 17:14 - CONCLUSION: Uncomplicated right chest tube placement as above. Tai Taylor Jr., MD Head CT 06/18/151902 Signed Impressions: Service Date/Time: June 19:31 - CONCLUSION: Diffuse atrophy unchanged. No acute intracranial findings. Kush Briscoe MD Abdomen/Pelvis CT 06/18/151902 Signed Impressions: Service Date/Time: June 19:36 - CONCLUSION: 1. Chronic nonspecific urinary bladder wall thickening. Bladder collapsed with Putnam catheter in place. 2. Chronic bilateral mid to lower lung zone groundglass opacity. 3. Nonobstructing left renal calculus. 4. Distended rectum. Kush Briscoe MD Objective Remarks GENERAL: 54-year-old male, cachectic, currently on ventilator HEENT: NC/AT. PERRL. MMM dry and pink. Oropharynx without erythema or thrush NECK: No JVD/thrombus encephalopathy status post tracheostomy clean/dry and intact CARDIAC: RRR. S1/S2. No S4. No murmurs, clicks gallops or rubs. LUNGS: Clear to auscultation bilaterally. No wheeze, rhonchi or rales. No use of accessory muscles. ABDOMEN: S/NT/ND. Bowel sounds heard in all 4 quadrants. No organomegaly or masses. No guarding/rigidity/rebound. EXTREMITIES: No significant peripheral edema, pulses are equal bilaterally. NEUROLOGY: Patient with significant contractures of the right lower extremity, upper extremities. Eyes open spontaneously. Muscle wasting face, bilateral upper and lower extremities Procedures 07/26- PEG replacement 07/29- right pigtail catheter placement for new pneumothorax 07/29 Urinary Catheter: Yes Assessment to: Continue Putnam insert reason: Prolonged Immobilization Date of Insertion: Jul 30, 2015 Vascular Central Line Catheter: No A/P Assessment and Plan Neuro/Psych: Toxic metabolic Encephalopathy - chronic Parkinson's disease Cognitive disorder/Underlying dementia Depression CT head 06/18/15: - diffuse atrophy unchanged. No acute intracranial findings Continue Sinemet 25/100 3 times a day via PEG, Seroquel 50 mg twice a day, olanzapine 5 mg a night, Klonopin 2 mg every 8 hours, Paxil 20 daily and Neurontin 300 mg twice a day. These medications have been slowly titrated up since admission Continue Roxanol 5 mg every 4 hours when necessary pain and fentanyl patch 50 g every 3 days for pain management. Patient was given morphine last evening and early this morning Resp: Acute on chronic respiratory failure Chronic trach, Pneumonia Right pneumothorax status post pigtail catheter Patient was placed back on rate last evening secondary to tachypnea, and hypoxia however no documented hypoxia, Pulmonary Dr. Ag following Pulm toilet, trach care. Exchanged from a #8 fenestrated Shiley cuffed tracheostomy to a #6 Shiley fenestrated cuffed on 07/22. Duo nebs 4 times a day and when necessary albuterol. Status post right pigtail chest tube by IR 07/06, removed 07/16. Follow chest x- ray revealed no pneumothorax Cardiac History of orthostasis History of CAD, HLP, Hypertension Continue Midodrine 5 mg twice a day Monitor HR and BP keep MAP>65mmHg GI: Malnutrition/protein calorie - moderate Status post PEG Hemorrhoids Gastroesophageal reflux disease - Tolerating Jevity 1.5 at 60 cc an hour. - Currently Prevacid 30 mg per PEG tube daily for GERD - Current Colace/senna for bowel regimen. /metabolic: Nonobstructing left renal calculus Hypernatremia - resolved - Monitor renal function, I/O's. electrolytes replacement per protocol. - Continue on Free H20 200ml 3 times a day monitor - Putnam placed 07/29 ID: Candiduria ESBL positive Klebsiella/Pseudomonas pneumonia MRSA colonization - Multidrug resistant UTI- ESBL 02/19/15 , MRSA + 03/20/15 - Heena glabrata in urine 03/19/15 - Rechecked blood, sputum and urine cultures 07/06 no growth - 06/17 - blood cultures 2 - CONS/staph epi - 06/17 - sputum - ESBL positive Klebsiella/Pseudomonas Treated 15 days with tobramycin aerosols twice a day. - 06/17 - urine - C. glabrata/tropicalis - treated with Diflucan --Abx monitor for signs of infections ( Fever, WBC) Endo: --SSI if needed for glycemic control Heme Anemia - Monitor CBC MSK Bilateral lower extremity Contractures Stage II DU - Wound care evaluate and treat - Continue physical therapy Prophylaxis - GI - Prevacid - DVT - SCDs/Lovenox Critical Care: Level 3. Time to perform other separately billable procedures was not included in the critical care time. German Medina Aug 03, 2015 13:08
[2015-08-03] MEDS: ACETAMINOPHEN 650 MG/20.3 ML UDC TUBE PRN (13:21)
[2015-08-03 16:07] LABS: BACTERIA, URINE FEW /hpf; BLOOD, URINE TRACE (NEG); CALCIUM OXALATE CRYSTALS,URINE FEW /hpf; GLUCOSE,URINE NEG (NEG); KETONE, URINE NEG (NEG); MUCUS URINE MOD /lpf (OCC); NITRITE,URINE NEG (NEG); PH, URINE 6.5 (5.0-8.5); SQUAMOUS EPITHELIAL CELL URINE 1 /hpf (0-5); URINE COLOR YELLOW (YELLW/STRAW)
[2015-08-03 16:10] LABS: COMMENT (UR) CULTURE INDICATED; CULTURE IF INDICATED CULTURE INDICATED
[2015-08-03] MEDS ORDERED: Vancomycin Consult Pharmacy 1 EA XX SCH (16:45)
[2015-08-03] MEDS ORDERED: VANCOMYCIN INJ 850 MG in SODIUM CHLOR 0.9% 250 ML INJ 250 ML IV SCH (16:45)
--- NOTE | 2015-08-03 17:42 | HHI.HCPN ---
Reason for visit a. To assist with evaluation and management of symptoms including: dyspnea ; pain b. To assist medical decision maker(s) with: better understanding of current medical conditions; weighing benefits/burdens of medical treatment options; making medical treatment decisions. . Subjective/Interval History Mr. Foreman remains minimally responsive in the MICU. He had been transferred to the hospitalist service but critical care has been re-consulted as patient is back on the ventilator in spite of ongoing ICU care and the involvement of pulmonary. He was having some labored breathing and use of accessory muscles while on the vent today. He has been having fevers -- Tmax today 101.3. Blood and urine cultures were sent today. Eye remain open for long periods of time but does not track, does not follow any commands, and does not attempt to interact in any way. Nurses report large amounts of thick, white phlegm which require deep tracheal suctioning. Episodic hypotension (BP 89/60 yesterday) . Respiratory rate normally in the 20s -- he is in the 30's today. Urine output adequate but decreasing. Tolerating tube feeds. Bowels moving. WBC climibing -- 12.1 today. Hg dropping -- 9.8 today. Na+ still elevated. Renal function good. No residual pneumothorax seen on CXR. PRN meds: * He has received one dose of 2 mg IV morphine on both 08/01 and 08/02 for occasional grimace/tears/frown (fentanyl patch at 100 mcg/hr remains in place) From Dr. Pickard's initial palliative care consultation of 07/15/15... 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 The patient has had multiple hospitalizations which included stays in the intensive care unit for various infections. He had a urinary tract infection with multidrug resistant ESBL on 02/19/15. He was last MRSA positive on . jail notes from the facility indicate that his current baseline is: * Bedbound status * Unable to communicate * NPO -- on tube feedings at 85 cc /hr * Dependent for all ADLs In the emergency Department, initial vital signs were as follows > temperature 100.9; pulse 98; respiratory rate 38; blood pressure 104/61; pulse oximetry 99% on room air via trach collar. Initial physical examination the emergency department revealed the following > patient was frail and chronically ill-appearing. Skin showed no obvious wounds. Head, eyes, ENT, neck, cardiovascular, respiratory, gastrointestinal exams were unremarkable. Neurologically, the patient was unable to answer questions or respond or follow commands. Initial diagnostic testing revealed the following: * CBC showed WBC 16.4; hemoglobin 11.3; platelet count 176 * Coagulation profile showed PT 11.4; INR 1.1; PTT 29.4 * Chemistry profile showed sodium 141; potassium 4.5; chloride 105; CO2 27.4; anion gap 9; BUN 21; creatinine 0.85; estimated GFR 95; glucose 116; calcium 9.6 * Liver function tests showed total bilirubin 0.6; AST 23; ALT 38; alkaline phosphatase 59; total protein 7.5; albumen 3.2 * Urinalysis was remarkable for large occult blood; large leukocyte esterase; few bacteria; few yeast with hyphae; few budding yeast. * Arterial blood gases on trach mask at 40% showed pH 7.53; PCO2 33; PaO2 108; bicarbonate 27; base excess 4.2 * Chest x-ray showed no acute cardiopulmonary disease * Head CT showed diffuse atrophy unchanged from prior exam. * CT of the abdomen and pelvis showed chronic nonspecific urinary bladder wall thickening; bladder collapsed with Valdez catheter in place; chronic bilateral mid to lower lung zone groundglass opacity; nonobstructing left renal calculus; distended rectum. * The emergency room doctor diagnosed severe sepsis. The patient was given 2 L of IV fluid and broad-spectrum antibiotic-coated verge in the emergency department. Cultures were obtained. Valdez catheter was changed. As the patient was markedly tachypneic with increased work of breathing and use of accessory muscles during his stay in the emergency department. He was placed on CPAP and subsequently intubated and placed on mechanical ventilation. Critical care was consulted and the patient was admitted to the intensive care unit. Further examination revealed a stage II 6 x 2 cm sacral wound. Urine culture on admission grew out Heena of 2 different species. Sputum culture grew out Klebsiella pneumonia ESBL positive as well as pseudomonas. Blood culture grew out coag-negative staph and staph epidermidis. Both infectious disease and pulmonology were consulted. The patient slowly improved, was extubated, and critical care signed off on . However, on 07/06 the patient had to be placed back on the ventilator. A right sided pneumothorax was noted and patient underwent chest tube placement by interventional radiology. Pneumothorax has appeared to resolve on most recent chest x-ray. Sputum, blood, and urine cultures from 07/07/15 are all negative. White blood count is currently down to 7. Hemoglobin is 10.6. Albumen is suboptimal at 3.0. Renal function is normal. He is currently off anti-biotics. Current pain regimen includes the following: * Fentanyl patch; 50 g per hour * Morphine sulfate 5 mg sublingually or via the tube every 4 hours when necessary (he has been using 1-2 doses of this per day) The patient was tolerating CPAP earlier today and has since been removed from the ventilator and is on a T-piece at 40% FI02. At time of my visit, eyes are open. He intermittently tracks. He cannot follow commands and makes no attempt to interact. . Family/friend interactions Attempted once again to speak with daughter -- Radha -- who is the health care proxy. Left message on voicemail for her to call me re: an update on her father. . . Advance Directives Living Will: Never completed Health Care Surrogate: Copy in medical record Durable Power of Stopper Setter: Never completed Advance Directive Specifics Date completed: Patient visited Scott Mack, Stopper Setter in March and again in November 2014. The patient was encouraged to complete Advance directive documents but never did them. Dr. Pickard personally called Mr. Mack ([phone]) to check for advance directives. Health Care Surrogate(s): The patient completed a health care surrogate document dated 09/02/14 desigating his friend Bola Nolasco as surrogate. Mr. Nolasco was not aware of this and has declined serving in that capacity. The patient has an adult daughter -- Radha Foreman who is willing to serve as health care proxy decision maker. Patient's mother, Teresa is aware. Objective Vital Signs Date Time Temp Pulse Resp B/P Pulse Ox O2 Delivery O2 Flow Rate FiO2 08/03/15 17:18 98 35 08/03/15 16:00 99.2 86 30 113/80 97 08/03/15 16:00 86 08/03/15 16:00 35 08/03/15 14:00 90 08/03/15 12:43 96 35 08/03/15 12:36 96 35 08/03/15 12:00 101.3 90 30 95/61 96 08/03/15 12:00 90 08/03/15 12:00 35 08/03/15 10:00 92 08/03/15 08:31 96 35 08/03/15 08:00 95 08/03/15 08:00 35 08/03/15 08:00 100.2 92 39 103/68 98 08/03/15 06:00 93 08/03/15 04:21 97 35 08/03/15 04:00 35 08/03/15 04:00 88 08/03/15 04:00 99.8 88 36 139/93 99 08/03/15 02:00 85 08/03/15 01:27 97 35 08/03/15 00:00 99.4 88 30 91/61 98 08/03/15 00:00 88 08/03/15 00:00 35 08/02/15 22:05 96 35 08/02/15 22:00 87 08/02/15 20:13 99 35 08/02/15 20:00 86 08/02/15 20:00 99.8 86 34 107/63 99 08/02/15 20:00 35 08/02/15 18:00 87 Intake & Output 08/03/15 08/03/15 07:00 19:00 Intake Total 1477 ml 746 ml Output Total 508 ml 602 ml Balance 969 ml 144 ml Intake Oral 0 ml IV Total 0 ml Tube Feeding 997 ml 566 ml Tube Irrigant 80 ml 180 ml Other 400 ml Output Urine Total 500 ml 600 ml Chest Tube Drainage Total 8 ml 2 ml # Bowel Movements 2 1 . Physical Exam CONSTITUTIONAL/GENERAL: This is a thin, pale, contracted, chronically ill appearing male on trach to vent in the MICU. No apparent distress. Eyes open but unresponsive. TUBES/LINES/DRAINS: Trach; valdez; SCDs; soft wrist restraints; peripheral iv left upper extremity ; PEG tube SKIN: No jaundice, rashes, or lesions. No wounds seen anteriorly -- did not examine sacral area. Skin temperature appropriate. Not diaphoretic. HEAD: Atraumatic. Normocephalic. EYES: Pupils equal and round. No scleral icterus. No injection or drainage. Fundi not examined. ENT: Nose without bleeding or purulent drainage. Throat without visible erythema , exudates, masses, or lesions. NECK: Trachea midline. Tracheostomy. CARDIOVASCULAR: Regular rate and rhythm without murmurs, gallops, or rubs. No JVD. Peripheral pulses symmetric. RESPIRATORY/CHEST: Tachypnic with symmetric, slightly- labored respirations. Some coarse breath sounds bilaterally. Breath sounds equal bilaterally and diminished at bases. No wheezes. GASTROINTESTINAL: Abdomen soft, non-tender, nondistended. No hepato-splenomegaly , or palpable masses. No guarding. Bowel sounds present. GENITOURINARY: Without palpable bladder distension. Valdez catheter in place. MUSCULOSKELETAL: Extremities without clubbing, cyanosis, or edema. Contractures. No calf tenderness. No mottling . LYMPHATICS: Not examined NEUROLOGICAL: Eyes open but does not track. He does blink to threat. Unable to follow even simple commands. No spontaneous movements seen. PSYCHIATRIC: Unable to assess due to level of responsiveness. . Diagnostic Tests Laboratory Laboratory Tests Test 08/03/15 08/03/15 03:30 13:30 White Blood Count 12.1 TH/MM3 (4.0-11.0) Red Blood Count 3.40 MIL/MM3 (4.50-5.90) Hemoglobin 9.8 GM/DL (13.0-17.0) Hematocrit 30.8 % (39.0-51.0) Mean Corpuscular Volume 90.6 FL (80.0-100.0) Mean Corpuscular Hemoglobin 28.8 PG (27.0-34.0) Mean Corpuscular Hemoglobin 31.7 % Concent (32.0-36.0) Red Cell Distribution Width 13.2 % (11.6-17.2) Platelet Count 216 TH/MM3 (150-450) Mean Platelet Volume 10.7 FL (7.0-11.0) Neutrophils (%) (Auto) 68.8 % (16.0-70.0) Lymphocytes (%) (Auto) 13.4 % (9.0-44.0) Monocytes (%) (Auto) 6.8 % (0.0-8.0) Eosinophils (%) (Auto) 10.2 % (0.0-4.0) Basophils (%) (Auto) 0.8 % (0.0-2.0) Neutrophils # (Auto) 8.3 TH/MM3 (1.8-7.7) Lymphocytes # (Auto) 1.6 TH/MM3 (1.0-4.8) Monocytes # (Auto) 0.8 TH/MM3 (0-0.9) Eosinophils # (Auto) 1.2 TH/MM3 (0-0.4) Basophils # (Auto) 0.1 TH/MM3 (0-0.2) CBC Comment DIFF FINAL Differential Comment Urine Color YELLOW (YELLW/STRAW) Urine Turbidity CLOUDY (CLEAR) Urine pH 6.5 (5.0-8.5) Urine Specific Stickney 1.021 (1.002-1.035) Urine Protein 30 mg/dL (NEG-TRACE) Urine Glucose (UA) NEG mg/dL (NEG) Urine Ketones NEG mg/dL (NEG) Urine Occult Blood TRACE (NEG) Urine Nitrite NEG (NEG) Urine Bilirubin NEG (NEG) Urine Urobilinogen 4.0 MG/DL (LESS THAN 2.0) Urine Leukocyte Esterase LARGE (NEG) Urine RBC 36 /hpf (0-3) Urine WBC 167 /hpf (0-5) Urine WBC Clumps FEW (NONE) Urine Squamous Epithelial 1 /hpf (0-5) Cells Urine Calcium Oxalate Crystals FEW /hpf (NONE) Urine Bacteria FEW /hpf (NONE) Urine Mucus MOD /lpf (OCC) Urine Yeast with Hyphae FEW (NONE) Urine Yeast (Budding) FEW (NONE) Microscopic Urinalysis Comment CULTURE INDICATED Result Diagram: 08/03/15 0270 Microbiology Microbiology Date/Time Procedure Status Source Growth 08/03/15 13:30 Urine Culture Received Urine Clean Catch Pending 08/03/15 13:46 Aerobic Blood Culture Received Blood Peripheral Pending 08/03/15 13:46 Anaerobic Blood Culture Received Blood Peripheral Pending 08/03/15 15:04 Gram Stain Received Sputum Endotracheal Pending 08/03/15 15:04 Sputum Culture Received Sputum Endotracheal Pending 08/03/15 16:00 Aerobic Blood Culture Received Blood Peripheral Pending 08/03/15 16:00 Anaerobic Blood Culture Received Blood Peripheral Pending 08/03/15 16:07 Aerobic Blood Culture Received Blood Peripheral Pending 08/03/15 16:07 Anaerobic Blood Culture Received Blood Peripheral Pending . Imaging Last Impressions Chest X-Ray 08/03/15 0600 Signed Impressions: Service Date/Time: Monday, August 03, 2015 04:35 - CONCLUSION: No residual pneumothorax seen; chest catheter stable position of the right apex. Tai Jaquez MD Chest Tube Change 07/31/15 0000 Signed Impressions: Service Date/Time: Friday, July 31, 2015 14:34 - CONCLUSION: Uncomplicated reposition of previously placed chest tube as above. Blaine Jackson MD Chest Tube Insertion 07/30/15 0000 Signed Impressions: Service Date/Time: July 14:50 - CONCLUSION: Uncomplicated chest tube placement as above. Blaine Jackson MD Catheter Change 07/27/15 0000 Signed Impressions: Service Date/Time: Monday, July 27, 2015 14:43 - CONCLUSION: Uncomplicated gastrostomy tube exchange as above. Blaine Jackson MD Tunnelled Chest Tube Removal 07/17/15 0000 Signed Impressions: Service Date/Time: Friday, July 17, 2015 00:00 - CONCLUSION: Uncomplicated chest tube removal. Erlin Mack MD Chest CT 07/11/15 0000 Signed Impressions: Service Date/Time: Saturday, July 11, 2015 09:49 - CONCLUSION: Scattered patchy densities significantly improved from previous study. Tiny anterior right basilar pneumothorax. Right-sided chest tube in good position. Néstor Matamoros MD Head CT 06/18/151902 Signed Impressions: Service Date/Time: June 19:31 - CONCLUSION: Diffuse atrophy unchanged. No acute intracranial findings. Kush Briscoe MD Abdomen/Pelvis CT 06/18/151902 Signed Impressions: Service Date/Time: June 19:36 - CONCLUSION: 1. Chronic nonspecific urinary bladder wall thickening. Bladder collapsed with Valdez catheter in place. 2. Chronic bilateral mid to lower lung zone groundglass opacity. 3. Nonobstructing left renal calculus. 4. Distended rectum. Ksuh Briscoe MD . Procedures * Mechanical ventilation * Chest tube placement on right 07/07/15 * Chest tube removal 07/17/15 . Assessment and Plan Disease Oriented Problem List: (1) Acute respiratory failure Comment: Secondary to pneumonia (2) Pneumonia Comment: Cultures have been positive for Pseudomonas AND Klebsiella ESBL (3) Pneumothorax on right Comment: Resolved . (4) Septic shock Comment: Blood cx have been postiive for Staph coag neg and Staph epidermidis . (5) Parkinson disease (6) Moderate malnutrition (7) UTI (urinary tract infection) Comment: Cultures have been positive for Heena (tropicalis and glabrata) (8) Chronic respiratory failure Symptom Scale: (1) Pain 0-10 Scale: Unable to quantify Comment: Sources of pain might include wound, prolonged bedbound status, contractures, restraints, valdez, vascular access catheters. Appears comfortable on current regimen. ,l (2) Dyspnea 0-10 Scale: Unable to quantify Comment: Still intermittently tachypnic off the vent. . Pertinent Non-Medical Issues Psychosocial: residential care home resident. 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 Severe dementia. Daughter, mother, and brother are involved. Spiritual: Evangelical. Has been a member for the [facility] [employer] and members have provided both community support and spiritual support in the past. Legal: No advance directives. Daughter (Radha Foreman) is legal proxy and lives 4 hours away. can be quite difficult to contact by phone. Ethical issues impacting care: None. . Important Contacts * Radha Foreman (daughter and proxy) [phone] * Teresa Perea (mother -- lives in [place]) [phone] . Prognosis Patient has end stage Parkinson's with end stage dementia. He is a shelter [facility] resident and has required multiple hospitalizations for sepsis. He is a chronic trach/PEG tube patient with contractures and skin breakdown. Should family continue to want aggressive care, he will continue to go back and forth from facility to hospital until such time that we are no longer able to overcome the sepsis. Patient is hospice eligible whenever family is ready to transition to "comfort measures only." . Code Status: Full Code Plan * Code status: FULL CODE * Decision making: Patient is incapacitated and will not regain capacity. There is no designated health care surrogate. Daughter, Radha Foreman, is legal proxy under [place] statutes but can be hard to contact at times. * Goals: Daughter -- Radha-- the proxy confirms that her father "is a fighter and was always a fighter" and would therefore want to continue with all aggressive measures including resuscitation and life support. * Pain: Sources of pain are unclear as patient in non communicative, but would include prolonged bedbound status; tubes and lines; contractures; wound; etc. Current regimen appears to adequate . No further recommendations at this time. * Dyspnea: Dyspnea was due to pneumonia and pneumothorax. Now improving but has been challenging to get off vent support. May need LTAC placement as he has proven hard to keep off the vent. No further recommendations at this time. * Malnutrition: Anticipate improvement as infection clears and patient is tolerating tube feeds better. * Agitation/Behavioral issues: Adequately controlled with current neuroleptic and benzo regimen. No further recommendations at this time. * Attempted to call daughter -- Radha -- the proxy again today. Left message on voicemail * Palliative care will try and meet with Radha (proxy) in person when she next comes to visit. . . Attestation To help prompt me to consider important information that might be impacting today's encounter and assessment, information from prior notes written by myself or my colleagues may have been "brought forward" into today's note. My signature on this note, however, is an attestation that I personally performed the exam, history, and/or decision-making noted today, and, unless otherwise indicated, the interactions with patient, family, and staff as well as the review of records all occurred today. I also attest that the listed assessment and stated plan reflect my best clinical judgment today based on the combination of historical information, prior notes, and today's exam/ interactions. When time spent is documented, it refers only to time spent today by the signer, or if indicated, combined time spent today by collaborating physician/nurse practitioner. . Pascual Pickard MD Aug 03, 2015 17:42
--- NOTE | 2015-08-03 18:18 | HHI.PR ---
Subjective Remarks On the vent . tachypneic and on 40 % FIo2. Appears septic. febrile. Objective Vital Signs Date Time Temp Pulse Resp B/P Pulse Ox O2 Delivery O2 Flow Rate FiO2 08/03/15 17:18 98 35 08/03/15 16:00 99.2 86 30 113/80 97 08/03/15 16:00 86 08/03/15 16:00 35 08/03/15 14:00 90 08/03/15 12:43 96 35 08/03/15 12:36 96 35 08/03/15 12:00 101.3 90 30 95/61 96 08/03/15 12:00 90 08/03/15 12:00 35 08/03/15 10:00 92 08/03/15 08:31 96 35 08/03/15 08:00 95 08/03/15 08:00 35 08/03/15 08:00 100.2 92 39 103/68 98 08/03/15 06:00 93 08/03/15 04:21 97 35 08/03/15 04:00 35 08/03/15 04:00 88 08/03/15 04:00 99.8 88 36 139/93 99 08/03/15 02:00 85 08/03/15 01:27 97 35 08/03/15 00:00 99.4 88 30 91/61 98 08/03/15 00:00 88 08/03/15 00:00 35 08/02/15 22:05 96 35 08/02/15 22:00 87 08/02/15 20:13 99 35 08/02/15 20:00 86 08/02/15 20:00 99.8 86 34 107/63 99 08/02/15 20:00 35 I/O 08/02/15 08/02/15 08/02/15 08/03/15 08/03/15 08/03/15 07:00 15:00 23:00 07:00 15:00 23:00 Intake Total 740 ml 657 ml 737 ml 740 ml 686 ml 60 ml Output Total 175 ml 230 ml 283 ml 225 ml 300 ml 302 ml Balance 565 ml 427 ml 454 ml 515 ml 386 ml -242 ml Intake Oral 0 ml 0 ml 0 ml IV Total 0 ml 0 ml 0 ml Tube Feeding 480 ml 657 ml 497 ml 500 ml 566 ml Tube Irrigant 260 ml 40 ml 40 ml 120 ml 60 ml Other 200 ml 200 ml Output Urine Total 175 ml 200 ml 275 ml 225 ml 300 ml 300 ml Chest Tube Drainage Total 0 ml 30 ml 8 ml 0 ml 2 ml # Bowel Movements 3 1 3 1 1 Result Diagram: 08/03/15 0330 Objective Remarks This is a well-nourished male who in on the vent with a trach tube in place. HEENT: Pupils are equal and reactive to light. He has trach in place. CHEST: Bilateral wheeze with basal crackles. CARDIOVASCULAR: S1 and S2 is normal. ABDOMEN: Soft, nondistended. He has a PEG tube in place. EXTREMITIES: No edema. NEURO: Lethargic and Does not move his extremities . Assessment and Plan Assessment and Plan IMPRESSION 1. Respiratory failure, ventilator dependent 2. Sepsis 3. UTI 4. Tracheobronchitis 5. Parkinson's disease 6. Dementia. 7. Severe Deconditioning. 8. Left Pneumothorax. Plan : 1. Place on A/C rate 12, PEEP +5, FIO2 40 %. 2. Nebs qid , duoneb. 3. Antibiotics per ID. 4. Reculture trach secretions. 5. Chest X ray. For Pneumothorax. 6. keep Sedated. 7. Tube feeds at 60 CC Darren Kiser MD Aug 03, 2015 18:18
[2015-08-03 19:14] LABS: URINE COLOR YELLOW (YELLW/STRAW)
[2015-08-03 19:16] LABS: BLOOD, URINE SMALL (NEG); GLUCOSE,URINE NEG (NEG); KETONE, URINE NEG (NEG); NITRITE,URINE NEG (NEG)
[2015-08-03 19:17] LABS: MUCUS URINE MOD /lpf (OCC); SQUAMOUS EPITHELIAL CELL URINE 1 /hpf (0-5)
[2015-08-03 19:18] LABS: BACTERIA, URINE OCC /hpf; COMMENT (UR) CATH-CULTURE IND; CULTURE IF INDICATED CATH CULTURE IND
[2015-08-03] MEDS ORDERED: VANCOMYCIN 1,000 MG/NS 250 ML IV ONE ×2 (20:00)
[2015-08-03] MEDS: CEFEPIME INJ 1,000 MG in SODIUM CHLORIDE 0.9% INJ 100 ML IV SCH (20:08)
[2015-08-03] MEDS: OLANZapine 2.5 MG TAB GT SCH (20:09)
[2015-08-03] MEDS: ENOXAPARIN SODIUM 30 MG/0.3 ML SYRINGE SQ SCH (22:27)
[2015-08-04] VITALS (15 sets, daily range): BP systolic 99–113; BP diastolic 63–74; PULSE 82–98; RESP 28–43; TEMP 97.4–99.3; O2SAT 96–100
[2015-08-04] MEDS: RESP: SODIUM CHLORIDE 3% 4 ML NEB NEB SCH ×3 (03:57→20:01)
[2015-08-04] MEDS: CHLORHEXIDINE GLUCONATE 2 % 1 PACK (2 CLOTHS) TOP SCH (04:00)
[2015-08-04] MEDS: CEFEPIME INJ 1,000 MG in SODIUM CHLORIDE 0.9% INJ 100 ML IV SCH ×2 (04:37→11:46)
[2015-08-04] MEDS: CARBIDOPA/LEVODOPA 25 MG/100 MG TAB GT SCH ×3 (05:08→22:39)
[2015-08-04] MEDS: clonazePAM 1 MG TAB PO SCH ×3 (05:08→22:39)
[2015-08-04 05:23] LABS: AUTOMATED NEUTROPHIL # 7.4 TH/MM3 (1.8-7.7); BASOPHIL % 0.5 % (0.0-2.0); EOSINOPHIL # 1.2 TH/MM3 (0-0.4); EOSINOPHIL % 11.2 % (0.0-4.0); HEMATOCRIT 29.8 % (39.0-51.0); HEMO FLAGS DIFF FINAL; LYMPH % 12.8 % (9.0-44.0); LYMPHOCYTE # 1.4 TH/MM3 (1.0-4.8); MEAN CELL VOLUME 89.1 FL (80.0-100.0); MEAN CORPUSCULAR HEMOGLOBIN 28.7 PG (27.0-34.0); MEAN CORPUSCULAR HGB CONC 32.2 % (32.0-36.0); MONO % 5.9 % (0.0-8.0); NEUT % 69.6 % (16.0-70.0); PLATELET COUNT 221 TH/MM3 (150-450); RED BLOOD COUNT 3.34 MIL/MM3 (4.50-5.90); RED CELL DISTRIBUTION WIDTH 13.1 % (11.6-17.2); WHITE BLOOD COUNT 10.6 TH/MM3 (4.0-11.0)
[2015-08-04 05:42] LABS: BICARBONATE 33.8 MEQ/L (21.0-32.0); POTASSIUM 4.2 MEQ/L (3.5-5.1)
[2015-08-04] MEDS: FREE WATER G-TUBE SCH ×3 (06:00→22:00)
[2015-08-04] MEDS: REMOVE OLD PATCH TD SCH (08:00)
[2015-08-04] MEDS: LACTOBACILLUS ACIDOPHILUS TAB PO SCH ×3 (08:05→17:31)
[2015-08-04] MEDS: SENNOSIDES SYRUP 8.8 MG/5 ML CUP PO SCH (08:05)
[2015-08-04] MEDS: CHLORHEXIDINE 0.12% (ORAL KIT) 15 ML CUP MT SCH ×2 (08:05→19:58)
[2015-08-04] MEDS: GABAPENTIN 300 MG CAP G-TUBE SCH ×2 (08:05→20:03)
[2015-08-04] MEDS: VANCOMYCIN INJ 800 MG in SODIUM CHLOR 0.9% 250 ML INJ 250 ML IV SCH ×2 (08:05→19:57)
[2015-08-04] MEDS: MIDODRINE 5 MG TAB G-TUBE SCH ×2 (08:05→20:03)
[2015-08-04] MEDS: LANSOPRAZOLE SOLUTAB 30 MG TAB NG SCH (08:05)
[2015-08-04] MEDS: PARoxetine HCL 20 MG TAB G-TUBE SCH (08:05)
[2015-08-04] MEDS: QUEtiapine FUMARATE 25 MG TAB G-TUBE SCH ×2 (08:05→20:03)
[2015-08-04] MEDS: fentaNYL 50 MCG/HR PATCH TD SCH (08:06)
[2015-08-04] MEDS: SODIUM CHLORIDE 0.9% FLUSH 5 ML FLUSH IVF SCH ×2 (08:06→20:03)
[2015-08-04] MEDS: ARTIFICIAL TEARS OPTH SOLN 15 ML BTL EACH EYE SCH ×3 (08:07→17:31)
--- NOTE | 2015-08-04 12:46 | HHI.PR ---
Subjective Remarks On the vent , rate 12 . tachypneic and on 35 % FIo2. febrile. Output OK. Objective Vital Signs Date Time Temp Pulse Resp B/P Pulse Ox O2 Delivery O2 Flow Rate FiO2 08/04/15 12:00 85 08/04/15 12:00 35 08/04/15 12:00 98.6 85 34 111/68 99 08/04/15 10:04 97 35 08/04/15 10:00 87 08/04/15 08:51 35 08/04/15 08:00 98 08/04/15 08:00 35 08/04/15 08:00 97.6 90 43 110/71 97 08/04/15 06:00 91 08/04/15 04:00 35 08/04/15 04:00 97.5 82 31 99/69 96 08/04/15 04:00 82 08/04/15 03:57 98 35 08/04/15 02:00 83 08/04/15 00:00 82 08/04/15 00:00 97.4 82 30 102/69 97 08/04/15 00:00 35 08/03/15 23:42 100 35 08/03/15 22:35 30 08/03/15 22:00 80 08/03/15 20:14 100 35 08/03/15 20:00 97.8 83 33 106/72 97 08/03/15 20:00 83 08/03/15 20:00 35 08/03/15 18:00 84 08/03/15 17:18 98 35 08/03/15 16:00 99.2 86 30 113/80 97 08/03/15 16:00 86 08/03/15 16:00 35 08/03/15 14:00 90 I/O 08/03/15 08/03/15 08/03/15 08/04/15 08/04/15 08/04/15 07:00 15:00 23:00 07:00 15:00 23:00 Intake Total 740 ml 686 ml 996 ml 620 ml Output Total 225 ml 300 ml 552 ml 300 ml Balance 515 ml 386 ml 444 ml 320 ml Intake Oral 0 ml IV Total 0 ml 347 ml 162 ml Tube Feeding 500 ml 566 ml 589 ml 458 ml Tube Irrigant 40 ml 120 ml 60 ml Other 200 ml Output Urine Total 225 ml 300 ml 550 ml 300 ml Chest Tube Drainage Total 0 ml 2 ml # Bowel Movements 1 1 0 0 Result Diagram: 08/04/15 0356 08/04/15 0356 Objective Remarks This is a well-nourished male who in on the vent with a trach tube in place. HEENT: Pupils are equal and reactive to light. He has trach in place. CHEST: Bilateral wheeze with basal crackles. CARDIOVASCULAR: S1 and S2 is normal. ABDOMEN: Soft, nondistended. He has a PEG tube in place. EXTREMITIES: No edema. NEURO: Lethargic and Does not move his extremities . Assessment and Plan Assessment and Plan IMPRESSION 1. Respiratory failure, ventilator dependent 2. Sepsis 3. UTI 4. Tracheobronchitis 5. Parkinson's disease 6. Dementia. 7. Severe Deconditioning. 8. Left Pneumothorax. Resolved Plan : 1. Place on A/C rate 12, PEEP +5, FIO2 35 %. 2. Nebs qid , duoneb. 3. Antibiotics per ID. 4. Reculture trach secretions. 5. Chest X ray. For Pneumothorax. 6. keep Sedated. Add Ativan .5 mg q6h prn. 7. Tube feeds at 60 CC 8. Lovenox 40 Mg S/Q daily. Darren Kiser MD Aug 04, 2015 12:46
--- NOTE | 2015-08-04 12:56 | RADRPT ---
EXAM DATE/TIME: 08/04/2015 11:50 [place] COMPARISON: REPOSITION OF CHEST TUBE, RIGHT, July 31, 2015, 14:34. CHEST EXPIRATION ONLY, August 01, 2015, 4:43. CHEST SINGLE AP, August 03, 2015, 4:35. INDICATIONS : Pneumothorax. MEDICAL HISTORY : None. SURGICAL HISTORY : None. ENCOUNTER: Initial ACUITY: 1 day PAIN SCORE: Non-responsive. LOCATION: Bilateral chest FINDINGS: Tracheostomy and right thoracostomy tube are stable. There is no evidence of pneumothorax. Patchy razia ateral interstitial prominence is unchanged without significant alveolar consolidation or effusion. C ardiomediastinal contours are stable. CONCLUSION: No pneumothorax. Erlin Mack MD on August 04, 2015 at 12:45 Board Certified Radiologist. This report was verified electronically.
--- NOTE | 2015-08-04 12:58 | HHI.CCPN ---
Subjective Remarks/Hospital Course 06/17: Pt is a 54 yr man with multiple medial problems including Parkinson's disease, advanced dementia, hyponatremia, anxiety, pneumonia, GERD, cognitive disorder, and multidrug resistant UTI- ESBL02/19/15 , who resides in a group home. Pt by report was found by staff in group home to be less alert and having respiratory difficultly and fevers. Pt was brought to ED adn placed on ventilator. His workup was inclusive of labs, chest xray and ct head and abd/pelvis. WBC 16.4, +UTI, lactic acid 4, troponin ,0.02, BUN/ cre 18/ 0.76. CT head 06/18/15: diffuse atrophy unchanged. No acute intracranial findings ct abd/ pelvis with IV contrast: 06/18/15 Conclusion: 1. Chronic nonspecific urinary bladder wall thickening. Bladder collapsed with Putnam catheter in place. 2.Chronic bilateral mid to lower zone groundglass opacity. 3. Nonobstructing left renal calculus. 4. Distended rectum Pt admitted and fluid and abx ordered. 06/18: Drowsy, easily arousable. On mechanical ventilation via tracheostomy. Tachypneic. Resting tremor noted. 06/19: Drowsy, arousable. On mechanical ventilation via tracheostomy. 06/20: Drowsy, arousable. Remains on mechanical ventilation via tracheostomy. We'll repeat blood cultures, UA and urine cultures. Fluconazole IV added in view of yeast in urine. 07/06: Reconsulted as patient return to the ventilator on a right ventricular due to tachypnea. Low-grade temperatures. Tolerating tube feeding. Extremity encephalopathic demented patient with difficult neurological examination. 07/07: Status post chest tube placement by IR for right pneumothorax 07/06. Afebrile. Tolerating tube feeds. Positive BM. Currently tachypneic on the ventilator. Does not appear to be any acute distress. 07/08: Afebrile. Tolerating tube feeding. He is comfortable currently on CPAP trials 11/10. Positive BM. 07/09: Afebrile. Tolerating tube feeding. Appears comfortable on T bar. Positive BM. 07/10: Afebrile. Eyes are open. Remained on T piece overnight. Tolerating tube feeding. 07/11: MAXIMUM TEMPERATURE 100. Currently 98.6. Eyes are open. On ACV overnight secondary to "tachypnea and sweating". Switching back to PSV trials today. Goal is T piece during daytime, CPAP at night. 07/12: No acute events overnight. On PSV 15/5 -attempt TP up to 6 hours today. No pneumothorax on chest x-ray 07/13: Placed back on full ventilator support for tachypnea. Otherwise clinically unchanged. No fever today 07/14: Patient was on T piece yesterday evening, placed back on PSV overnight, patient mechanical ventilation this morning. Patient appears to be struggling with mechanical ventilation. Patient placed back on PSV with improvement 07/15: Patient placed back on mechanical ventilation last evening due to respiratory rate. It was indicated patient was tachypnea can the 40s. Patient on mechanical ventilation this time with respiration rate mid 20s. Chest tube still in place without any output, chest x-ray still indicating resolution of pneumothorax. 07/16: Patient seen and examined today. Patient placed back on mechanical ventilation overnight due to respiratory rate. Even on mechanical ventilation patient has respiration rate in the 30s. Patient afebrile, blood pressure stable. Continue vent weaning 07/17: Patient seen and examined. Currently afebrile. Currently on CPAP 15/5 @ 40%. Patient is awake with open mouth resting in bed in no apparent acute distress. Tolerating tube feeding. 2 bowel movements. 07/18: No neurological changes. Afebrile. 2 bowel moments. Tolerating tube feeding. We'll attempt TP trials today. On CPAP since 07/15 07/19 No events overnight. On CPAP with PS: 10, PEEP: 5 and FIO2 35%. Afebrile. On no sedation. 07/20 No events overnight. Tolerating CPAP. Afebrile. 07/21: Remains on CPAP. Attempt T piece trial today. Afebrile. One bowel movement. Tolerating tube feeding. 07/22: Afebrile. Positive BM. Tolerating tube feeding. Noted switched tracheostomy to #6 Shiley cuffed fenestrated. Neurologically unchanged 07/23: Afebrile. Positive BM. Tolerating tube feeding. Questionable leak in exchange trach. Place back on a rate/ACV overnight. Insufflated seems to be doing better at the present time. Will check chest x-ray. Possible he might need #6 XLT versus replacement of chronic #8 Shiley. 07/24: Tolerating TP today, RR in low 30s patient appears comfortable. No acute events overnight 07/25: Remains off the ventilator more than 36 hours now. Intermittently tachypneic probably breathing. Chest x-ray was clear yesterday. No acute events reported overnight. PEG not functioning per RN 08/02: Patient was transferred back to critical care service due to continuing ventilator management, tachypnea. Patient clinical status with no significant change. Patient with low-grade fever 100.2, 08/03: Patient seen and examined today. No significant change in clinical status. Patient still with chronic tachypnea. Patient afebrile now. Objective - Vital Signs Date Time Temp Pulse Resp B/P Pulse Ox O2 Delivery O2 Flow Rate FiO2 08/04/15 12:00 85 08/04/15 12:00 35 08/04/15 12:00 98.6 34 111/68 99 Intake and Output 08/03/15 08/03/15 08/04/15 08:00 16:00 00:00 Intake Total 740 ml 686 ml 996 ml Output Total 225 ml 300 ml 552 ml Balance 515 ml 386 ml 444 ml Result Diagram: 08/04/15 0356 08/04/15 0356 Other Results Imaging Last Impressions Chest X-Ray 07/22/15 0600 Signed Impressions: Service Date/Time: Wednesday, July 22, 2015 04:17 - CONCLUSION: There has been no significant change when compared to the prior exam. John Anderson MD Tunnelled Chest Tube Removal 07/17/15 0000 Signed Impressions: Service Date/Time: Friday, July 17, 2015 00:00 - CONCLUSION: Uncomplicated chest tube removal. Erlin Mack MD Chest CT 07/11/15 0000 Signed Impressions: Service Date/Time: Saturday, July 11, 2015 09:49 - CONCLUSION: Scattered patchy densities significantly improved from previous study. Tiny anterior right basilar pneumothorax. Right-sided chest tube in good position. Néstor Matamoros MD Chest Tube Insertion 07/07/15 0000 Signed Impressions: Service Date/Time: Tuesday, July 07, 2015 17:14 - CONCLUSION: Uncomplicated right chest tube placement as above. Tai Taylro Jr., MD Head CT 06/18/15 [id number] Signed Impressions: Service Date/Time: June 19:31 - CONCLUSION: Diffuse atrophy unchanged. No acute intracranial findings. Kush Briscoe MD Abdomen/Pelvis CT 06/18/15 1903 Signed Impressions: Service Date/Time: June 19:36 - CONCLUSION: 1. Chronic nonspecific urinary bladder wall thickening. Bladder collapsed with Putnam catheter in place. 2. Chronic bilateral mid to lower lung zone groundglass opacity. 3. Nonobstructing left renal calculus. 4. Distended rectum. Kush Briscoe MD Objective Remarks GENERAL: 54-year-old male, cachectic, currently on ventilator HEENT: NC/AT. PERRL. MMM dry and pink. Oropharynx without erythema or thrush NECK: No JVD/thrombus encephalopathy status post tracheostomy clean/dry and intact CARDIAC: RRR. S1/S2. No S4. No murmurs, clicks gallops or rubs. LUNGS: Clear to auscultation bilaterally. No wheeze, rhonchi or rales. No use of accessory muscles. ABDOMEN: S/NT/ND. Bowel sounds heard in all 4 quadrants. No organomegaly or masses. No guarding/rigidity/rebound. EXTREMITIES: No significant peripheral edema, pulses are equal bilaterally. NEUROLOGY: Patient with significant contractures of the right lower extremity, upper extremities. Eyes open spontaneously. Muscle wasting face, bilateral upper and lower extremities Procedures 07/26- PEG replacement 07/29- right pigtail catheter placement for new pneumothorax 07/29 Urinary Catheter: Yes Assessment to: Continue Date of Insertion: Jul 30, 2015 Vascular Central Line Catheter: No A/P Assessment and Plan Neuro/Psych: Toxic metabolic Encephalopathy - chronic Parkinson's disease Cognitive disorder/Underlying dementia Depression CT head 06/18/15: - diffuse atrophy unchanged. No acute intracranial findings Continue Sinemet 25/100 3 times a day via PEG, Seroquel 50 mg twice a day, olanzapine 5 mg a night, Klonopin 2 mg every 8 hours, Paxil 20 daily and Neurontin 300 mg twice a day. These medications have been slowly titrated up since admission Continue Roxanol 5 mg every 4 hours when necessary pain and fentanyl patch 50 g every 3 days for pain management. Patient was given morphine last evening and early this morning Resp: Acute on chronic respiratory failure Chronic trach, Pneumonia Right pneumothorax status post pigtail catheter Patient was placed back on rate last evening secondary to tachypnea, and hypoxia however no documented hypoxia, Pulmonary Dr. Restrepo following Pulm toilet, trach care. Exchanged from a #8 fenestrated Shiley cuffed tracheostomy to a #6 Shiley fenestrated cuffed on 07/22. Duo nebs 4 times a day and when necessary albuterol. Status post chest tube replacement by indirect radiology on 07/30, repeat x-rays indicated any pneumothorax Cardiac History of orthostasis History of CAD, HLP, Hypertension Continue Midodrine 5 mg twice a day Monitor HR and BP keep MAP>65mmHg GI: Malnutrition/protein calorie - moderate Status post PEG Hemorrhoids Gastroesophageal reflux disease - Tolerating Jevity 1.5 at 60 cc an hour. - Currently Prevacid 30 mg per PEG tube daily for GERD - Current Colace/senna for bowel regimen. /metabolic: Nonobstructing left renal calculus Hypernatremia - resolved - Monitor renal function, I/O's. electrolytes replacement per protocol. - Continue on Free H20 200ml 3 times a day monitor - Putnam placed 07/29 ID: Candiduria ESBL positive Klebsiella/Pseudomonas pneumonia MRSA colonization Febrile illness - Patient started on empiric vancomycin and cefepime - Patient recultured, sputum culture, blood culture, urine culture, continue to follow - History of Multidrug resistant UTI- ESBL 02/19/15 , MRSA + 03/20/15 - Heena glabrata in urine 03/19/15 - Rechecked blood, sputum and urine cultures 07/06 no growth - 06/17 - blood cultures 2 - CONS/staph epi - 06/17 - sputum - ESBL positive Klebsiella/Pseudomonas Treated 15 days with tobramycin aerosols twice a day. - 06/17 - urine - C. glabrata/tropicalis - treated with Diflucan --Abx monitor for signs of infections ( Fever, WBC) Endo: --SSI if needed for glycemic control Heme Anemia - Monitor CBC MSK Bilateral lower extremity Contractures Stage II DU - Wound care evaluate and treat - Continue physical therapy Prophylaxis - GI - Prevacid - DVT - SCDs/Lovenox Critical Care: Level 3. Time to perform other separately billable procedures was not included in the critical care time. Physician Addendum: Patient seen and examined earlier. Discussed findings, assessment and plan with Erlin HOLLY. Agree with above note. German Medina Aug 04, 2015 12:58 Jules Moss MD Aug 06, 2015 16:39
--- NOTE | 2015-08-04 17:03 | HHI.IDPN ---
Subjective Subjective Remarks Reconsulted for new fever, sepsis (tmax 101.3, WBC elevation, tachycardia, source: ? tracheobronchitis or UTI) Mr. Foreman is a 54-year-old male with past medical history significant for Parkinson's disease, advanced dementia, hyponatremia, history of ESBL UTI. Admitted with sepsis. Now with Pneumonia, UTI and staph bacteremia Overnight events reviewed [employer]at Sander reconsulted for resp distress. Tmax 101.3 F. Now defervesced. UO good. No change in mentation. Not on pressors. Remains on vent/trach. Thick yellow secretions moderate amount. No diarrhea Putnam cath changed new urine obtained. Cultures pending. Antibiotics Zosyn IV Vanco IV Lines Line sites with no e/o infection Past Medical History reviewed Allergies: Coded Allergies: *MDRO Multi-Drug Resistant Organism (Verified Adverse Reaction, Unknown, ) ESBL E. coli (urine) - 02/19/2015; ESBL (sputum) - 06/18/15 MRSA PCR positive - 03/20/2015 Objective . Vital Signs Date Time Temp Pulse Resp B/P Pulse Ox O2 Delivery O2 Flow Rate FiO2 08/04/15 12:00 85 08/04/15 12:00 35 08/04/15 12:00 98.6 85 34 111/68 99 08/04/15 10:04 97 35 08/04/15 10:00 87 08/04/15 08:51 35 08/04/15 08:00 98 08/04/15 08:00 35 08/04/15 08:00 97.6 90 43 110/71 97 08/04/15 06:00 91 08/04/15 04:00 35 08/04/15 04:00 97.5 82 31 99/69 96 08/04/15 04:00 82 08/04/15 03:57 98 35 08/04/15 02:00 83 08/04/15 00:00 82 08/04/15 00:00 97.4 82 30 102/69 97 08/04/15 00:00 35 08/03/15 23:42 100 35 08/03/15 22:35 30 08/03/15 22:00 80 08/03/15 20:14 100 35 08/03/15 20:00 97.8 83 33 106/72 97 08/03/15 20:00 83 6/27/16 20:00 35 08/03/15 18:00 84 08/03/15 17:18 98 35 08/03/15 08/03/15 08/04/15 15:00 23:00 07:00 Intake Total 686 ml 996 ml 620 ml Output Total 300 ml 552 ml 300 ml Balance 386 ml 444 ml 320 ml IV Total 347 ml 162 ml Tube Feeding 566 ml 589 ml 458 ml Tube Irrigant 120 ml 60 ml Output Urine Total 300 ml 550 ml 300 ml Chest Tube Drainage Total 2 ml # Bowel Movements 1 0 0 . Laboratory Tests Test 08/03/15 08/04/15 03:30 03:56 White Blood Count 12.1 TH/MM3 10.6 TH/MM3 Red Blood Count 3.40 MIL/MM3 3.34 MIL/MM3 Hemoglobin 9.8 GM/DL 9.6 GM/DL Hematocrit 30.8 % 29.8 % Mean Corpuscular Volume 90.6 FL 89.1 FL Mean Corpuscular Hemoglobin 28.8 PG 28.7 PG Mean Corpuscular Hemoglobin 31.7 % 32.2 % Concent Red Cell Distribution Width 13.2 % 13.1 % Platelet Count 216 TH/MM3 221 TH/MM3 Mean Platelet Volume 10.7 FL 11.1 FL Neutrophils (%) (Auto) 68.8 % 69.6 % Lymphocytes (%) (Auto) 13.4 % 12.8 % Monocytes (%) (Auto) 6.8 % 5.9 % Eosinophils (%) (Auto) 10.2 % 11.2 % Basophils (%) (Auto) 0.8 % 0.5 % Neutrophils # (Auto) 8.3 TH/MM3 7.4 TH/MM3 Lymphocytes # (Auto) 1.6 TH/MM3 1.4 TH/MM3 Monocytes # (Auto) 0.8 TH/MM3 0.6 TH/MM3 Eosinophils # (Auto) 1.2 TH/MM3 1.2 TH/MM3 Basophils # (Auto) 0.1 TH/MM3 0.0 TH/MM3 CBC Comment DIFF FINAL DIFF FINAL Differential Comment Laboratory Tests Test 08/04/15 03:56 Sodium Level 141 MEQ/L Potassium Level 4.2 MEQ/L Chloride Level 101 MEQ/L Carbon Dioxide Level 33.8 MEQ/L Anion Gap 6 MEQ/L Blood Urea Nitrogen 18 MG/DL Creatinine 0.54 MG/DL Estimat Glomerular Filtration 160 ML/MIN Rate Random Glucose 136 MG/DL Calcium Level 8.6 MG/DL Magnesium Level 2.0 MG/DL Microbiology Date/Time Procedure Status Source Growth 08/03/15 13:30 Urine Culture - Preliminary Resulted Urine Clean Catch Gram Negative Jesse 08/03/15 13:46 Aerobic Blood Culture Received Blood Peripheral Pending 08/03/15 13:46 Anaerobic Blood Culture Received Blood Peripheral Pending 08/03/15 15:04 Gram Stain - Final Resulted Sputum Endotracheal 08/03/15 15:04 Sputum Culture - Preliminary Resulted Pseudomonas Species Gram Negative Jesse 08/03/15 16:00 Aerobic Blood Culture - Preliminary Resulted Blood Peripheral NO GROWTH IN 1 DAY 08/03/15 16:00 Anaerobic Blood Culture - Preliminary Resulted Blood Peripheral NO GROWTH IN 1 DAY 08/03/15 16:07 Aerobic Blood Culture - Preliminary Resulted Blood Peripheral NO GROWTH IN 1 DAY 08/03/15 16:07 Anaerobic Blood Culture - Preliminary Resulted Blood Peripheral NO GROWTH IN 1 DAY 08/03/15 17:13 Urine Culture - Preliminary Resulted Urine Catheterized Urine NO GROWTH IN 24 HOURS. Imaging Last Impressions Chest X-Ray 06/20/15 0600 Signed Impressions: Service Date/Time: Saturday, June 20, 2015 04:18 - CONCLUSION: No acute cardiopulmonary disease. Eugene Schmid MD Head CT 06/18/151902 Signed Impressions: Service Date/Time: June 19:31 - CONCLUSION: Diffuse atrophy unchanged. No acute intracranial findings. Kush Briscoe MD Abdomen/Pelvis CT 06/18/[id number] Signed Impressions: Service Date/Time: June 19:36 - CONCLUSION: 1. Chronic nonspecific urinary bladder wall thickening. Bladder collapsed with Putnam catheter in place. 2. Chronic bilateral mid to lower lung zone groundglass opacity. 3. Nonobstructing left renal calculus. 4. Distended rectum. Kush Briscoe MD Physical Exam GENERAL: Chronically ill-appearing, aphasic, not in acute distress. Cachectic with not much body fat. SKIN: No generalized rashes, ecchymoses or lesions. Cool and dry. HEAD: Atraumatic. Normocephalic. No temporal or scalp tenderness. EYES: Pupils equal round and reactive. ENT: Grossly nothing abnormal detected. Trach site with no evidence of infection. NECK: No lymphadenopathy. Supple, nontender, no meningeal signs. CARDIOVASCULAR: No murmur appreciated. RESPIRATORY: Clear to auscultation. Breath sounds equal bilaterally with decrease in the bases. GASTROINTESTINAL: Abdomen soft, non-tender, nondistended. PEG tube site with no evidence of infection. MUSCULOSKELETAL: Increased tone in all extremities. Rigidity noted. NEUROLOGICAL: Opens eyes spontaneously. No verbal response does not follow commands. Psych could not be assessed IV line sites with no evidence of infection. No lines present on admission. Assessment & Plan Remarks Possible new sepsis (WBC elevation, Fevers, tachycardia, source: UTI or tracheobronchitis) Possible acute tracheobronchitis. ESBL Kleb pneumo and PSAE. Chest x-ray is negative. Acute on chronic respiratory failure was on trach and had to be placed on ventilator. Acute encephalopathy sepsis but has an underlying diagnosis of advanced dementia as well as advanced Parkinson's disease. Prior history of ESBL UTI Possible UTI Prior history of MRSA colonization. Status post trach Status post gastrostomy tube with no evidence of infection. Stage II sacral decubitus ulcer present on admission. Recommendations PSAE in sputum GNR in urine: ? UTI vs colonization will follow repeat UA to determine. Continue Cefepime IV increase to PSAE doses. Continue Vanco IV Follow cultures Follow clinically. Case discussed with RN and CCM . Trina Moss MD Aug 04, 2015 17:03
[2015-08-04] MEDS: CEFEPIME INJ 2,000 MG in SODIUM CHLORIDE 0.9% INJ 100 ML IV SCH (19:57)
[2015-08-04] MEDS: OLANZapine 2.5 MG TAB GT SCH (20:03)
[2015-08-04] MEDS: ENOXAPARIN SODIUM 30 MG/0.3 ML SYRINGE SQ SCH (22:39)
[2015-08-05] VITALS (18 sets, daily range): BP systolic 81–125; BP diastolic 56–86; PULSE 74–93; RESP 21–37; TEMP 97.1–98.3; O2SAT 95–100
[2015-08-05] MEDS: RESP: SODIUM CHLORIDE 3% 4 ML NEB NEB SCH ×4 (01:11→19:45)
[2015-08-05] MEDS: CHLORHEXIDINE GLUCONATE 2 % 1 PACK (2 CLOTHS) TOP SCH ×2 (04:00→21:11)
[2015-08-05] MEDS: CEFEPIME INJ 2,000 MG in SODIUM CHLORIDE 0.9% INJ 100 ML IV SCH ×3 (05:11→19:54)
[2015-08-05] MEDS: FREE WATER G-TUBE SCH ×3 (05:12→19:54)
[2015-08-05] MEDS: clonazePAM 1 MG TAB PO SCH ×3 (05:12→20:31)
[2015-08-05] MEDS: CARBIDOPA/LEVODOPA 25 MG/100 MG TAB GT SCH ×3 (05:12→20:31)
--- NOTE | 2015-08-05 06:50 | RADRPT ---
EXAM DATE/TIME: 08/05/2015 04:17 [facility] COMPARISON: CHEST SINGLE AP, August 04, 2015, 11:50. INDICATIONS : Pneumothorax. MEDICAL HISTORY : Hypertension. Gastroesophageal reflux disease. Diabetes mellitus type II. SURGICAL HISTORY : Tracheostomy. ENCOUNTER: Subsequent ACUITY: 1 month PAIN SCORE: Non-responsive. LOCATION: Bilateral chest FINDINGS: Right chest catheter tip remains at the right apex. Lung markings are seen to the right apex. No ri ght apical pneumothorax seen. Left upper lobe faint opacity is stable in appearance. Minimal lungs are clear. CONCLUSION: Chest catheter in place. No pneumothorax seen. Tai Jaquez MD on August 05, 2015 at 6:45 Board Certified Radiologist. This report was verified electronically.
[2015-08-05] MEDS ORDERED: PHARMACY ORDERED LAB XX ONE (07:45)
--- NOTE | 2015-08-05 08:07 | HHI.CCPN ---
Subjective Remarks/Hospital Course 06/17: Pt is a 54 yr man with multiple medial problems including Parkinson's disease, advanced dementia, hyponatremia, anxiety, pneumonia, GERD, cognitive disorder, and multidrug resistant UTI- ESBL02/19/15 , who resides in a correction. Pt by report was found by staff in correction to be less alert and having respiratory difficultly and fevers. Pt was brought to ED adn placed on ventilator. His workup was inclusive of labs, chest xray and ct head and abd/pelvis. WBC 16.4, +UTI, lactic acid 4, troponin ,0.02, BUN/ cre 18/ 0.76. CT head 06/18/15: diffuse atrophy unchanged. No acute intracranial findings ct abd/ pelvis with IV contrast: 06/18/15 Conclusion: 1. Chronic nonspecific urinary bladder wall thickening. Bladder collapsed with Putnam catheter in place. 2.Chronic bilateral mid to lower zone groundglass opacity. 3. Nonobstructing left renal calculus. 4. Distended rectum Pt admitted and fluid and abx ordered. 06/18: Drowsy, easily arousable. On mechanical ventilation via tracheostomy. Tachypneic. Resting tremor noted. 06/19: Drowsy, arousable. On mechanical ventilation via tracheostomy. 06/20: Drowsy, arousable. Remains on mechanical ventilation via tracheostomy. We'll repeat blood cultures, UA and urine cultures. Fluconazole IV added in view of yeast in urine. 07/06: Reconsulted as patient return to the ventilator on a right ventricular due to tachypnea. Low-grade temperatures. Tolerating tube feeding. Extremity encephalopathic demented patient with difficult neurological examination. 07/07: Status post chest tube placement by IR for right pneumothorax 07/06. Afebrile. Tolerating tube feeds. Positive BM. Currently tachypneic on the ventilator. Does not appear to be any acute distress. 07/08: Afebrile. Tolerating tube feeding. He is comfortable currently on CPAP trials 11/10. Positive BM. 07/09: Afebrile. Tolerating tube feeding. Appears comfortable on T bar. Positive BM. 07/10: Afebrile. Eyes are open. Remained on T piece overnight. Tolerating tube feeding. 07/11: MAXIMUM TEMPERATURE 100. Currently 98.6. Eyes are open. On ACV overnight secondary to "tachypnea and sweating". Switching back to PSV trials today. Goal is T piece during daytime, CPAP at night. 07/12: No acute events overnight. On PSV 15/5 -attempt TP up to 6 hours today. No pneumothorax on chest x-ray 07/13: Placed back on full ventilator support for tachypnea. Otherwise clinically unchanged. No fever today 07/14: Patient was on T piece yesterday evening, placed back on PSV overnight, patient mechanical ventilation this morning. Patient appears to be struggling with mechanical ventilation. Patient placed back on PSV with improvement 07/15: Patient placed back on mechanical ventilation last evening due to respiratory rate. It was indicated patient was tachypnea can the 40s. Patient on mechanical ventilation this time with respiration rate mid 20s. Chest tube still in place without any output, chest x-ray still indicating resolution of pneumothorax. 07/16: Patient seen and examined today. Patient placed back on mechanical ventilation overnight due to respiratory rate. Even on mechanical ventilation patient has respiration rate in the 30s. Patient afebrile, blood pressure stable. Continue vent weaning 07/17: Patient seen and examined. Currently afebrile. Currently on CPAP 15/5 @ 40%. Patient is awake with open mouth resting in bed in no apparent acute distress. Tolerating tube feeding. 2 bowel movements. 07/18: No neurological changes. Afebrile. 2 bowel moments. Tolerating tube feeding. We'll attempt TP trials today. On CPAP since 07/15 07/19 No events overnight. On CPAP with PS: 10, PEEP: 5 and FIO2 35%. Afebrile. On no sedation. 07/20 No events overnight. Tolerating CPAP. Afebrile. 07/21: Remains on CPAP. Attempt T piece trial today. Afebrile. One bowel movement. Tolerating tube feeding. 07/22: Afebrile. Positive BM. Tolerating tube feeding. Noted switched tracheostomy to #6 Shiley cuffed fenestrated. Neurologically unchanged 07/23: Afebrile. Positive BM. Tolerating tube feeding. Questionable leak in exchange trach. Place back on a rate/ACV overnight. Insufflated seems to be doing better at the present time. Will check chest x-ray. Possible he might need #6 XLT versus replacement of chronic #8 Shiley. 07/24: Tolerating TP today, RR in low 30s patient appears comfortable. No acute events overnight 07/25: Remains off the ventilator more than 36 hours now. Intermittently tachypneic probably breathing. Chest x-ray was clear yesterday. No acute events reported overnight. PEG not functioning per RN 08/02: Patient was transferred back to critical care service due to continuing ventilator management, tachypnea. Patient clinical status with no significant change. Patient with low-grade fever 100.2, 08/03: Patient seen and examined today. No significant change in clinical status. Patient still with chronic tachypnea. Patient afebrile now. 08/04: Patient seen and examined today. No change in clinical status. Patient still continues to have chronic tachypnea. Patient afebrile. Continue vent weaning Objective - Vital Signs Date Time Temp Pulse Resp B/P Pulse Ox O2 Delivery O2 Flow Rate FiO2 08/05/15 06:00 90 08/05/15 04:33 98 35 08/05/15 04:00 97.5 26 125/86 Intake and Output 08/04/15 08/04/15 08/05/15 08:00 16:00 00:00 Intake Total 620 ml 1564 ml 799 ml Output Total 300 ml 554 ml 300 ml Balance 320 ml 1010 ml 499 ml Result Diagram: 08/04/15 0356 08/04/15 0356 Other Results Imaging Last Impressions Chest X-Ray 07/22/15 0600 Signed Impressions: Service Date/Time: Wednesday, July 22, 2015 04:17 - CONCLUSION: There has been no significant change when compared to the prior exam. John Anderson MD Tunnelled Chest Tube Removal 07/17/15 0000 Signed Impressions: Service Date/Time: Friday, July 17, 2015 00:00 - CONCLUSION: Uncomplicated chest tube removal. Erlin Mack MD Chest CT 07/11/15 0000 Signed Impressions: Service Date/Time: Saturday, July 11, 2015 09:49 - CONCLUSION: Scattered patchy densities significantly improved from previous study. Tiny anterior right basilar pneumothorax. Right-sided chest tube in good position. Néstor Matamoros MD Chest Tube Insertion 07/07/15 0000 Signed Impressions: Service Date/Time: Tuesday, July 07, 2015 17:14 - CONCLUSION: Uncomplicated right chest tube placement as above. Tai Taylor Jr., MD Head CT 06/18/151902 Signed Impressions: Service Date/Time: June 19:31 - CONCLUSION: Diffuse atrophy unchanged. No acute intracranial findings. Kush Briscoe MD Abdomen/Pelvis CT 06/18/151902 Signed Impressions: Service Date/Time: , June 18, 2015 19:36 - CONCLUSION: 1. Chronic nonspecific urinary bladder wall thickening. Bladder collapsed with Putnam catheter in place. 2. Chronic bilateral mid to lower lung zone groundglass opacity. 3. Nonobstructing left renal calculus. 4. Distended rectum. Kush Briscoe MD Objective Remarks GENERAL: 54-year-old male, cachectic, currently on ventilator HEENT: NC/AT. PERRL. MMM dry and pink. Oropharynx without erythema or thrush NECK: No JVD/thrombus encephalopathy status post tracheostomy clean/dry and intact CARDIAC: RRR. S1/S2. No S4. No murmurs, clicks gallops or rubs. LUNGS: Clear to auscultation bilaterally. No wheeze, rhonchi or rales. No use of accessory muscles. ABDOMEN: S/NT/ND. Bowel sounds heard in all 4 quadrants. No organomegaly or masses. No guarding/rigidity/rebound. EXTREMITIES: No significant peripheral edema, pulses are equal bilaterally. NEUROLOGY: Patient with significant contractures of the right lower extremity, upper extremities. Eyes open spontaneously. Muscle wasting face, bilateral upper and lower extremities Procedures 07/26- PEG replacement 07/29- right pigtail catheter placement for new pneumothorax 07/29 Urinary Catheter: Yes Assessment to: Continue Putnam insert reason: Prolonged Immobilization Date of Insertion: Jul 30, 2015 Vascular Central Line Catheter: No A/P Assessment and Plan Neuro/Psych: Toxic metabolic Encephalopathy - chronic Parkinson's disease Cognitive disorder/Underlying dementia Depression CT head 06/18/15: - diffuse atrophy unchanged. No acute intracranial findings Continue Sinemet 25/100 3 times a day via PEG, Seroquel 50 mg twice a day, olanzapine 5 mg a night, Klonopin 2 mg every 8 hours, Paxil 20 daily and Neurontin 300 mg twice a day. These medications have been slowly titrated up since admission Continue Roxanol 5 mg every 4 hours when necessary pain and fentanyl patch 50 g every 3 days for pain management. Resp: Acute on chronic respiratory failure Chronic trach, Pneumonia Right pneumothorax status post pigtail catheter Patient continues on AC ventilation, continue to wean to T piece, Pulmonary Dr. Restrepo following Pulm toilet, trach care. Exchanged from a #8 fenestrated Shiley cuffed tracheostomy to a #6 Shiley fenestrated cuffed on 07/22. Duo nebs 4 times a day and when necessary albuterol. Status post chest tube replacement by interventional radiology on 07/30, repeat x -rays indicated any pneumothorax, intervention radiology is managing chest tube Cardiac History of orthostasis History of CAD, HLP, Hypertension Continue Midodrine 5 mg twice a day Monitor HR and BP keep MAP>65mmHg GI: Malnutrition/protein calorie - moderate Status post PEG Hemorrhoids Gastroesophageal reflux disease - Tolerating Jevity 1.5 at 60 cc an hour. - Currently Prevacid 30 mg per PEG tube daily for GERD - Current Colace/senna for bowel regimen. /metabolic: Nonobstructing left renal calculus Hypernatremia - resolved - Monitor renal function, I/O's. electrolytes replacement per protocol. - Continue on Free H20 200ml 3 times a day monitor - Putnam placed 07/29 ID: Candiduria ESBL positive Klebsiella/Pseudomonas pneumonia MRSA colonization Febrile illness - Patient started on empiric vancomycin and cefepime, due to recurrent febrile illness - Patient recultured Urine culture: 08/02 gram-negative ani Urine culture: 08/02 no growth for 24 hours Sputum culture: Pseudomonas, gram-negative ani Blood culture: 08/02 no growth for 1 day - Infectious disease consulted and following the patient - History of Multidrug resistant UTI- ESBL 02/19/15 , MRSA + 03/20/15 - Heena glabrata in urine 03/19/15 - Rechecked blood, sputum and urine cultures 07/06 no growth - 06/17 - blood cultures 2 - CONS/staph epi - 06/17 - sputum - ESBL positive Klebsiella/Pseudomonas Treated 15 days with tobramycin aerosols twice a day. - 06/17 - urine - C. glabrata/tropicalis - treated with Diflucan --Abx monitor for signs of infections ( Fever, WBC) Endo: --SSI if needed for glycemic control Heme Anemia - Monitor CBC MSK Bilateral lower extremity Contractures Stage II DU - Wound care evaluate and treat - Continue physical therapy Prophylaxis - GI - Prevacid - DVT - SCDs/Lovenox Critical Care: Level 3. Time to perform other separately billable procedures was not included in the critical care time. German Medina Aug 05, 2015 08:07
[2015-08-05] MEDS: RESP: ALBUTEROL 2.5 MG/3 ML NEB (PRN) INH (08:20)
[2015-08-05] MEDS: CHLORHEXIDINE 0.12% (ORAL KIT) 15 ML CUP MT SCH ×2 (09:11→19:56)
[2015-08-05] MEDS: ARTIFICIAL TEARS OPTH SOLN 15 ML BTL EACH EYE SCH ×3 (09:11→17:39)
[2015-08-05] MEDS: QUEtiapine FUMARATE 25 MG TAB G-TUBE SCH ×2 (09:12→19:53)
[2015-08-05] MEDS: SODIUM CHLORIDE 0.9% FLUSH 5 ML FLUSH IVF SCH ×2 (09:12→19:54)
[2015-08-05] MEDS: LACTOBACILLUS ACIDOPHILUS TAB PO SCH ×3 (09:12→17:39)
[2015-08-05] MEDS: PARoxetine HCL 20 MG TAB G-TUBE SCH (09:12)
[2015-08-05] MEDS: MIDODRINE 5 MG TAB G-TUBE SCH ×2 (09:12→19:54)
[2015-08-05] MEDS: GABAPENTIN 300 MG CAP G-TUBE SCH ×2 (09:12→19:54)
[2015-08-05] MEDS: SENNOSIDES SYRUP 8.8 MG/5 ML CUP PO SCH (09:12)
[2015-08-05] MEDS: LANSOPRAZOLE SOLUTAB 30 MG TAB NG SCH (09:12)
[2015-08-05] MEDS: VANCOMYCIN INJ 800 MG in SODIUM CHLOR 0.9% 250 ML INJ 250 ML IV SCH (09:12)
--- NOTE | 2015-08-05 11:52 | RADRPT ---
EXAM DATE/TIME: 08/05/2015 11:17 [facility] COMPARISON: CHEST SINGLE AP, August 05, 2015, 4:17. CHEST EXPIRATION ONLY, August 01, 2015, 4:43. INDICATIONS : Post chest tube removal. MEDICAL HISTORY : Hypertension. Gastroesophageal reflux disease. Diabetes mellitus type II. SURGICAL HISTORY : Tracheostomy. ENCOUNTER: Subsequent ACUITY: 1 week PAIN SCORE: Non-responsive. LOCATION: Bilateral chest FINDINGS: Portable upright single view of the chest demonstrates a normal-sized cardiac silhouette with tracheo stomy present. Right chest tube has been removed. No pneumothorax is visualized. There is stable inte rstitial prominence bilaterally. No acute osseous abnormality is identified. CONCLUSION: No pneumothorax is visualized following right chest tube removal. Erlin Barajas MD on August 05, 2015 at 11:47 Board Certified Radiologist. This report was verified electronically.
--- NOTE | 2015-08-05 12:41 | HHI.PR ---
Subjective Remarks On the vent and on CPAP, FIo2 35 % . tachypneic . febrile. Output OK. On Vanco and Cefipime. Objective Vital Signs Date Time Temp Pulse Resp B/P Pulse Ox O2 Delivery O2 Flow Rate FiO2 08/05/15 12:00 98 35 08/05/15 10:00 88 08/05/15 08:50 35 08/05/15 08:20 35 08/05/15 08:20 100 35 08/05/15 08:00 97.8 93 37 125/82 96 08/05/15 08:00 83 08/05/15 08:00 35 08/05/15 06:00 90 08/05/15 04:33 98 35 08/05/15 04:00 81 08/05/15 04:00 97.5 85 26 125/86 97 08/05/15 04:00 35 08/05/15 02:00 80 08/05/15 01:08 95 35 08/05/15 00:00 98.3 82 32 95/67 96 08/05/15 00:00 35 08/05/15 00:00 83 08/04/15 22:00 95 08/04/15 20:01 96 35 08/04/15 20:00 35 08/04/15 20:00 90 08/04/15 20:00 99.3 90 30 113/74 97 08/04/15 18:00 92 08/04/15 16:00 98.5 83 28 99/63 100 08/04/15 16:00 35 08/04/15 16:00 83 08/04/15 14:00 84 I/O 08/04/15 08/04/15 08/04/15 08/05/15 08/05/15 08/05/15 06:59 14:59 22:59 06:59 14:59 22:59 Intake Total 620 ml 1564 ml 799 ml 90 ml Output Total 300 ml 554 ml 300 ml 400 ml Balance 320 ml 1010 ml 499 ml -310 ml Intake Oral 90 ml IV Total 162 ml 462 ml 394 ml Tube Feeding 458 ml 722 ml 405 ml Tube Irrigant 180 ml Other 200 ml Output Urine Total 300 ml 550 ml 300 ml 400 ml Chest Tube Drainage Total 4 ml # Bowel Movements 0 1 0 0 Result Diagram: 08/04/15 0356 08/04/15 0356 Objective Remarks This is a well-nourished male who in on the vent with a trach tube in place. HEENT: Pupils are equal and reactive to light. He has trach in place. CHEST: Bilateral wheeze with occ basal crackles. CARDIOVASCULAR: S1 and S2 is normal. ABDOMEN: Soft, nondistended. He has a PEG tube in place. EXTREMITIES: No edema. NEURO: Lethargic and Does not move his extremities . Assessment and Plan Assessment and Plan IMPRESSION 1. Respiratory failure, ventilator dependent 2. Sepsis 3. UTI 4. Tracheobronchitis 5. Parkinson's disease 6. Dementia. 7. Severe Deconditioning. 8. Left Pneumothorax. Resolved Plan : 1. Place on A/C rate 12, PEEP +5, FIO2 35 %. 2. Nebs qid , duoneb. 3. Antibiotics per ID. 4. CPAP during the day. 5. Chest X ray. For Pneumothorax. 6. keep Sedated. Add Ativan .5 mg q6h prn. 7. Tube feeds at 60 CC 8. Lovenox 40 Mg S/Q daily. 9. Transfer to LTAC. Darren Kiser MD Aug 05, 2015 12:41
--- NOTE | 2015-08-05 16:37 | RADHPO ---
EXAM DATE/TIME: 08/05/2015 11:00 [facility] COMPARISON: CHEST EXPIRATION ONLY, August 05, 2015, 11:17. REPOSITION OF CHEST TUBE, RIGHT, July 31, 2015, 14:34. INDICATIONS : RESOLUTION OF RIGHT PNEUMOTHORAX DEVICE(S): 1.) PROCEDURE : Chest tube removal. Using aseptic technique the previously placed chest tube was easily removed in one piece and Vaseline gauze and sterile dressing was applied. Chest radiograph is to be obtained. CONCLUSION: Uncomplicated chest tube removal. Blaine Jackson MD on August 05, 2015 at 16:33 Board Certified Radiologist. This report was verified electronically.
--- NOTE | 2015-08-05 18:44 | HHI.IDPN ---
Subjective Subjective Remarks Reconsulted for new fever, sepsis (tmax 101.3, WBC elevation, tachycardia, source: ? tracheobronchitis or UTI) Mr. Foreman is a 54-year-old male with past medical history significant for Parkinson's disease, advanced dementia, hyponatremia, history of ESBL UTI. Admitted with sepsis. Now with Pneumonia, UTI and staph bacteremia Overnight events reviewed UO good. No change in mentation. Not on pressors. Remains on vent/trach. Thick yellow secretions moderate amount. No diarrhea Antibiotics Zosyn IV Vanco IV Lines Line sites with no e/o infection Past Medical History reviewed Allergies: Coded Allergies: *MDRO Multi-Drug Resistant Organism (Verified Adverse Reaction, Unknown, ) ESBL E. coli (urine) - 02/19/2015; ESBL (sputum) - 06/18/15 MRSA PCR positive - 03/20/2015 Objective . Vital Signs Date Time Temp Pulse Resp B/P Pulse Ox O2 Delivery O2 Flow Rate FiO2 08/05/15 18:00 79 08/05/15 16:47 96 35 08/05/15 16:00 35 08/05/15 16:00 87 08/05/15 16:00 97.5 87 30 105/72 98 08/05/15 14:00 82 08/05/15 12:00 97.1 74 21 89/59 98 08/05/15 12:00 35 08/05/15 12:00 74 08/05/15 12:00 98 35 08/05/15 10:00 88 08/05/15 08:50 35 08/05/15 08:20 35 08/05/15 08:20 100 35 08/05/15 08:00 97.8 93 37 125/82 96 08/05/15 08:00 83 08/05/15 08:00 35 08/05/15 06:00 90 08/05/15 04:33 98 35 08/05/15 04:00 81 08/05/15 04:00 97.5 85 26 125/86 97 08/05/15 04:00 35 08/05/15 02:00 80 08/05/15 01:08 95 35 08/05/15 00:00 98.3 82 32 95/67 96 08/05/15 00:00 35 08/05/15 00:00 83 08/04/15 22:00 95 08/04/15 20:01 96 35 08/04/15 20:00 35 08/04/15 20:00 90 08/04/15 20:00 99.3 90 30 113/74 97 08/04/15 08/04/15 08/05/15 15:00 23:00 07:00 Intake Total 1564 ml 799 ml 90 ml Output Total 554 ml 300 ml 400 ml Balance 1010 ml 499 ml -310 ml Intake Oral 90 ml IV Total 462 ml 394 ml Tube Feeding 722 ml 405 ml Tube Irrigant 180 ml Other 200 ml Output Urine Total 550 ml 300 ml 400 ml Chest Tube Drainage Total 4 ml # Bowel Movements 1 0 0 . Laboratory Tests Test 08/04/15 03:56 White Blood Count 10.6 TH/MM3 Red Blood Count 3.34 MIL/MM3 Hemoglobin 9.6 GM/DL Hematocrit 29.8 % Mean Corpuscular Volume 89.1 FL Mean Corpuscular Hemoglobin 28.7 PG Mean Corpuscular Hemoglobin 32.2 % Concent Red Cell Distribution Width 13.1 % Platelet Count 221 TH/MM3 Mean Platelet Volume 11.1 FL Neutrophils (%) (Auto) 69.6 % Lymphocytes (%) (Auto) 12.8 % Monocytes (%) (Auto) 5.9 % Eosinophils (%) (Auto) 11.2 % Basophils (%) (Auto) 0.5 % Neutrophils # (Auto) 7.4 TH/MM3 Lymphocytes # (Auto) 1.4 TH/MM3 Monocytes # (Auto) 0.6 TH/MM3 Eosinophils # (Auto) 1.2 TH/MM3 Basophils # (Auto) 0.0 TH/MM3 CBC Comment DIFF FINAL Differential Comment Laboratory Tests Test 08/04/15 03:56 Sodium Level 141 MEQ/L Potassium Level 4.2 MEQ/L Chloride Level 101 MEQ/L Carbon Dioxide Level 33.8 MEQ/L Anion Gap 6 MEQ/L Blood Urea Nitrogen 18 MG/DL Creatinine 0.54 MG/DL Estimat Glomerular Filtration 160 ML/MIN Rate Random Glucose 136 MG/DL Calcium Level 8.6 MG/DL Magnesium Level 2.0 MG/DL Microbiology Date/Time Procedure Status Source Growth 08/03/15 13:30 Urine Culture - Final Complete Urine Clean Catch Klebsiella Pneumoniae Esbl Pos 08/03/15 13:46 Aerobic Blood Culture Received Blood Peripheral Pending 08/03/15 13:46 Anaerobic Blood Culture Received Blood Peripheral Pending 08/03/15 15:04 Gram Stain - Final Resulted Sputum Endotracheal 08/03/15 15:04 Sputum Culture - Preliminary Resulted Pseudomonas Species Gram Negative Jesse 08/03/15 16:00 Aerobic Blood Culture - Preliminary Resulted Blood Peripheral NO GROWTH IN 2 DAYS 08/03/15 16:00 Anaerobic Blood Culture - Preliminary Resulted Blood Peripheral NO GROWTH IN 2 DAYS 08/03/15 16:07 Aerobic Blood Culture - Preliminary Resulted Blood Peripheral NO GROWTH IN 2 DAYS 08/03/15 16:07 Anaerobic Blood Culture - Preliminary Resulted Blood Peripheral NO GROWTH IN 2 DAYS 08/03/15 17:13 Urine Culture - Preliminary Resulted Urine Catheterized Urine Yeast Species Imaging Last Impressions Chest X-Ray 06/20/15 0600 Signed Impressions: Service Date/Time: Saturday, June 20, 2015 04:18 - CONCLUSION: No acute cardiopulmonary disease. Eugene Schmid MD Head CT 06/18/151902 Signed Impressions: Service Date/Time: June 19:31 - CONCLUSION: Diffuse atrophy unchanged. No acute intracranial findings. Kush Briscoe MD Abdomen/Pelvis CT 06/18/151902 Signed Impressions: Service Date/Time: June 19:36 - CONCLUSION: 1. Chronic nonspecific urinary bladder wall thickening. Bladder collapsed with Valdez catheter in place. 2. Chronic bilateral mid to lower lung zone groundglass opacity. 3. Nonobstructing left renal calculus. 4. Distended rectum. Kush Briscoe MD Physical Exam GENERAL: Chronically ill-appearing, aphasic, not in acute distress. Cachectic with not much body fat. SKIN: No generalized rashes, ecchymoses or lesions. Cool and dry. HEAD: Atraumatic. Normocephalic. No temporal or scalp tenderness. EYES: Pupils equal round and reactive. ENT: Grossly nothing abnormal detected. Trach site with no evidence of infection. NECK: No lymphadenopathy. Supple, nontender, no meningeal signs. CARDIOVASCULAR: No murmur appreciated. RESPIRATORY: Clear to auscultation. Breath sounds equal bilaterally with decrease in the bases. GASTROINTESTINAL: Abdomen soft, non-tender, nondistended. PEG tube site with no evidence of infection. MUSCULOSKELETAL: Increased tone in all extremities. Rigidity noted. NEUROLOGICAL: Opens eyes spontaneously. No verbal response does not follow commands. Psych could not be assessed IV line sites with no evidence of infection. No lines present on admission. Assessment & Plan Remarks Possible new sepsis (WBC elevation, Fevers, tachycardia, source: UTI or tracheobronchitis) Possible acute tracheobronchitis. ESBL Kleb pneumo and PSAE. Chest x-ray is negative. Acute on chronic respiratory failure was on trach and had to be placed on ventilator. Acute encephalopathy sepsis but has an underlying diagnosis of advanced dementia as well as advanced Parkinson's disease. Prior history of ESBL UTI Urine Cx first one from old valdez with ESBL: likely colonization. Urine Cx from new valdez with yeast likely colonization. Not being treated and clinically improved. Prior history of MRSA colonization. Status post trach Status post gastrostomy tube with no evidence of infection. Stage II sacral decubitus ulcer present on admission. Recommendations Urine Cx first one from old valdez with ESBL: likely colonization. Urine Cx from new valdez with yeast likely colonization. Not being treated and clinically improved. Continue Cefepime IV increase to PSAE doses. DC Vanco IV Follow cultures Follow clinically. Case discussed with RN and CCM . Trina Moss MD Aug 05, 2015 18:44
[2015-08-05] MEDS: OLANZapine 2.5 MG TAB GT SCH (19:54)
[2015-08-05] MEDS: ENOXAPARIN SODIUM 30 MG/0.3 ML SYRINGE SQ SCH (20:31)
[2015-08-05] MEDS ORDERED: VANCOMYCIN 1,000 MG/NS 250 ML IV SCH ×2 (21:00)
[2015-08-05] MEDS: MORPHINE SULFATE 4 MG/ML INJ IV PUSH PRN (23:49)
[2015-08-05] MEDS: LORazepam 2 MG/ML VIAL IVP PRN (23:49)
[2015-08-06] VITALS (15 sets, daily range): BP systolic 85–122; BP diastolic 54–77; PULSE 71–90; RESP 24–30; TEMP 97.7–98.8; O2SAT 94–100
--- NOTE | 2015-08-06 01:17 | RADRPT ---
EXAM DATE/TIME: 08/06/2015 00:39 [facility] COMPARISON: CHEST EXPIRATION ONLY, August 05, 2015, 11:17. CHEST SINGLE AP, August 05, 2015, 4:17. INDICATIONS : Shortness of breath, possible pulmonary disease. MEDICAL HISTORY : Hypertension. Gastroesophageal reflux disease. Diabetes mellitus type II. SURGICAL HISTORY : Tracheostomy ENCOUNTER: Subsequent ACUITY: 1 month PAIN SCORE: Non-responsive. LOCATION: Bilateral chest FINDINGS: Right chest drainage catheter has been removed. There is reappearance of the right pneumothorax late rally in mid chest measuring 12 mm. No apical pneumothorax seen. Patchy areas of interstitial filtr ation both apices are similar to prior. The heart is normal size. Tracheostomy in place. CONCLUSION: Redevelopment of right pneumothorax laterally in the mid chest measuring 12 mm in width. Tai Jaquez MD on August 06, 2015 at 1:12 Board Certified Radiologist. This report was verified electronically.
[2015-08-06] MEDS: RESP: SODIUM CHLORIDE 3% 4 ML NEB NEB SCH ×4 (03:38→20:13)
[2015-08-06] MEDS: CEFEPIME INJ 2,000 MG in SODIUM CHLORIDE 0.9% INJ 100 ML IV SCH ×3 (03:45→20:13)
[2015-08-06] MEDS: FREE WATER G-TUBE SCH ×3 (03:45→20:15)
[2015-08-06] MEDS: clonazePAM 1 MG TAB PO SCH ×3 (04:32→20:13)
[2015-08-06] MEDS: CARBIDOPA/LEVODOPA 25 MG/100 MG TAB GT SCH ×3 (04:32→20:14)
[2015-08-06 05:48] LABS: AUTOMATED NEUTROPHIL # 7.9 TH/MM3 (1.8-7.7); BASOPHIL % 0.4 % (0.0-2.0); EOSINOPHIL # 0.9 TH/MM3 (0-0.4); HEMATOCRIT 31.2 % (39.0-51.0); HEMO FLAGS DIFF FINAL; LYMPH % 7.3 % (9.0-44.0); LYMPHOCYTE # 0.8 TH/MM3 (1.0-4.8); MEAN CELL VOLUME 89.2 FL (80.0-100.0); MEAN CORPUSCULAR HEMOGLOBIN 29.1 PG (27.0-34.0); MEAN CORPUSCULAR HGB CONC 32.6 % (32.0-36.0); MONO % 7.3 % (0.0-8.0); PLATELET COUNT 213 TH/MM3 (150-450); WHITE BLOOD COUNT 10.4 TH/MM3 (4.0-11.0)
[2015-08-06 06:12] LABS: BICARBONATE 32.7 MEQ/L (21.0-32.0); POTASSIUM 4.5 MEQ/L (3.5-5.1)
[2015-08-06] MEDS: MIDODRINE 5 MG TAB G-TUBE SCH ×2 (07:15→20:14)
[2015-08-06] MEDS: PARoxetine HCL 20 MG TAB G-TUBE SCH (07:15)
[2015-08-06] MEDS: LANSOPRAZOLE SOLUTAB 30 MG TAB NG SCH (07:15)
[2015-08-06] MEDS: SENNOSIDES SYRUP 8.8 MG/5 ML CUP PO SCH (07:15)
[2015-08-06] MEDS: QUEtiapine FUMARATE 25 MG TAB G-TUBE SCH ×2 (07:15→20:14)
[2015-08-06] MEDS: LACTOBACILLUS ACIDOPHILUS TAB PO SCH ×3 (07:15→18:00)
[2015-08-06] MEDS: GABAPENTIN 300 MG CAP G-TUBE SCH ×2 (07:15→20:14)
[2015-08-06] MEDS: SODIUM CHLORIDE 0.9% FLUSH 5 ML FLUSH IVF SCH ×2 (07:16→20:14)
[2015-08-06] MEDS: CHLORHEXIDINE 0.12% (ORAL KIT) 15 ML CUP MT SCH ×2 (07:16→20:14)
[2015-08-06] MEDS: ARTIFICIAL TEARS OPTH SOLN 15 ML BTL EACH EYE SCH ×3 (07:16→18:00)
--- NOTE | 2015-08-06 07:38 | HHI.CCPN ---
Subjective Remarks/Hospital Course 06/17: Pt is a 54 yr man with multiple medial problems including Parkinson's disease, advanced dementia, hyponatremia, anxiety, pneumonia, GERD, cognitive disorder, and multidrug resistant UTI- ESBL02/19/15 , who [facility] in a [facility]. Pt by report was found by staff in [facility] to be less alert and having respiratory difficultly and fevers. Pt was brought to ED adn placed on ventilator. His workup was inclusive of labs, chest xray and ct head and abd/pelvis. WBC 16.4, +UTI, lactic acid 4, troponin ,0.02, BUN/ cre 18/ 0.76. CT head 06/18/15: diffuse atrophy unchanged. No acute intracranial findings ct abd/ pelvis with IV contrast: 06/18/15 Conclusion: 1. Chronic nonspecific urinary bladder wall thickening. Bladder collapsed with Putnam catheter in place. 2.Chronic bilateral mid to lower zone groundglass opacity. 3. Nonobstructing left renal calculus. 4. Distended rectum Pt admitted and fluid and abx ordered. 06/18: Drowsy, easily arousable. On mechanical ventilation via tracheostomy. Tachypneic. Resting tremor noted. 06/19: Drowsy, arousable. On mechanical ventilation via tracheostomy. 06/20: Drowsy, arousable. Remains on mechanical ventilation via tracheostomy. We'll repeat blood cultures, UA and urine cultures. Fluconazole IV added in view of yeast in urine. 07/06: Reconsulted as patient return to the ventilator on a right ventricular due to tachypnea. Low-grade temperatures. Tolerating tube feeding. Extremity encephalopathic demented patient with difficult neurological examination. 07/07: Status post chest tube placement by IR for right pneumothorax 07/06. Afebrile. Tolerating tube feeds. Positive BM. Currently tachypneic on the ventilator. Does not appear to be any acute distress. 07/08: Afebrile. Tolerating tube feeding. He is comfortable currently on CPAP trials 11/10. Positive BM. 07/09: Afebrile. Tolerating tube feeding. Appears comfortable on T bar. Positive BM. 07/10: Afebrile. Eyes are open. Remained on T piece overnight. Tolerating tube feeding. 07/11: MAXIMUM TEMPERATURE 100. Currently 98.6. Eyes are open. On ACV overnight secondary to "tachypnea and sweating". Switching back to PSV trials today. Goal is T piece during daytime, CPAP at night. 07/12: No acute events overnight. On PSV 15/5 -attempt TP up to 6 hours today. No pneumothorax on chest x-ray 07/13: Placed back on full ventilator support for tachypnea. Otherwise clinically unchanged. No fever today 07/14: Patient was on T piece yesterday evening, placed back on PSV overnight, patient mechanical ventilation this morning. Patient appears to be struggling with mechanical ventilation. Patient placed back on PSV with improvement 07/15: Patient placed back on mechanical ventilation last evening due to respiratory rate. It was indicated patient was tachypnea can the 40s. Patient on mechanical ventilation this time with respiration rate mid 20s. Chest tube still in place without any output, chest x-ray still indicating resolution of pneumothorax. 07/16: Patient seen and examined today. Patient placed back on mechanical ventilation overnight due to respiratory rate. Even on mechanical ventilation patient has respiration rate in the 30s. Patient afebrile, blood pressure stable. Continue vent weaning 07/17: Patient seen and examined. Currently afebrile. Currently on CPAP 15/5 @ 40%. Patient is awake with open mouth resting in bed in no apparent acute distress. Tolerating tube feeding. 2 bowel movements. 07/18: No neurological changes. Afebrile. 2 bowel moments. Tolerating tube feeding. We'll attempt TP trials today. On CPAP since 07/15 07/19 No events overnight. On CPAP with PS: 10, PEEP: 5 and FIO2 35%. Afebrile. On no sedation. 07/20 No events overnight. Tolerating CPAP. Afebrile. 07/21: Remains on CPAP. Attempt T piece trial today. Afebrile. One bowel movement. Tolerating tube feeding. 07/22: Afebrile. Positive BM. Tolerating tube feeding. Noted switched tracheostomy to #6 Shiley cuffed fenestrated. Neurologically unchanged 07/23: Afebrile. Positive BM. Tolerating tube feeding. Questionable leak in exchange trach. Place back on a rate/ACV overnight. Insufflated seems to be doing better at the present time. Will check chest x-ray. Possible he might need #6 XLT versus replacement of chronic #8 Shiley. 07/24: Tolerating TP today, RR in low 30s patient appears comfortable. No acute events overnight 07/25: Remains off the ventilator more than 36 hours now. Intermittently tachypneic probably breathing. Chest x-ray was clear yesterday. No acute events reported overnight. PEG not functioning per RN 08/02: Patient was transferred back to critical care service due to continuing ventilator management, tachypnea. Patient clinical status with no significant change. Patient with low-grade fever 100.2, 08/03: Patient seen and examined today. No significant change in clinical status. Patient still with chronic tachypnea. Patient afebrile now. 08/04: Patient seen and examined today. No change in clinical status. Patient still continues to have chronic tachypnea. Patient afebrile. Continue vent weaning 08/05: Patient seen and examined today. Patient had chest tube removed yesterday , chest x-ray shows redevelopment of pneumothorax. Chest tube replaced. Otherwise, patient still on ventilator with tachypnea. Afebrile Objective - Vital Signs Date Time Temp Pulse Resp B/P Pulse Ox O2 Delivery O2 Flow Rate FiO2 08/06/15 06:00 79 08/06/15 04:28 97 35 08/06/15 04:00 98.2 30 102/77 Intake and Output 08/05/15 08/05/15 08/06/15 08:00 16:00 00:00 Intake Total 90 ml 1236 ml 1045 ml Output Total 400 ml 450 ml 500 ml Balance -310 ml 786 ml 545 ml Result Diagram: 08/06/15 0452 08/06/15 0452 Other Results Imaging Last Impressions Chest X-Ray 07/22/15 0600 Signed Impressions: Service Date/Time: Wednesday, July 22, 2015 04:17 - CONCLUSION: There has been no significant change when compared to the prior exam. John Anderson MD Tunnelled Chest Tube Removal 07/17/15 0000 Signed Impressions: Service Date/Time: Friday, July 17, 2015 00:00 - CONCLUSION: Uncomplicated chest tube removal. Erlin Mack MD Chest CT 07/11/15 0000 Signed Impressions: Service Date/Time: Saturday, July 11, 2015 09:49 - CONCLUSION: Scattered patchy densities significantly improved from previous study. Tiny anterior right basilar pneumothorax. Right-sided chest tube in good position. Néstor Matamoros MD Chest Tube Insertion 07/07/15 0000 Signed Impressions: Service Date/Time: Tuesday, July 07, 2015 17:14 - CONCLUSION: Uncomplicated right chest tube placement as above. Tai Taylor Jr., MD Head CT 06/18/151902 Signed Impressions: Service Date/Time: June 19:31 - CONCLUSION: Diffuse atrophy unchanged. No acute intracranial findings. Kush Briscoe MD Abdomen/Pelvis CT 06/18/151902 Signed Impressions: Service Date/Time: June 19:36 - CONCLUSION: 1. Chronic nonspecific urinary bladder wall thickening. Bladder collapsed with Putnam catheter in place. 2. Chronic bilateral mid to lower lung zone groundglass opacity. 3. Nonobstructing left renal calculus. 4. Distended rectum. Kush Briscoe MD Objective Remarks GENERAL: 54-year-old male, cachectic, currently on ventilator HEENT: NC/AT. PERRL. MMM dry and pink. Oropharynx without erythema or thrush NECK: No JVD. status post tracheostomy clean/dry and intact CARDIAC: RRR. S1/S2. No S4. No murmurs, clicks gallops or rubs. LUNGS: Clear to auscultation bilaterally. No wheeze, rhonchi or rales. No use of accessory muscles. ABDOMEN: S/NT/ND. Bowel sounds heard in all 4 quadrants. No organomegaly or masses. No guarding/rigidity/rebound. EXTREMITIES: No significant peripheral edema, pulses are equal bilaterally. NEUROLOGY: Patient with significant contractures of the right lower extremity, upper extremities. Eyes open spontaneously. Muscle wasting face, bilateral upper and lower extremities Procedures 07/26- PEG replacement 07/29- right pigtail catheter placement for new pneumothorax 07/29 Urinary Catheter: Yes Assessment to: Continue Putnam insert reason: Prolonged Immobilization Date of Insertion: Jul 30, 2015 Vascular Central Line Catheter: No A/P Assessment and Plan Neuro/Psych: Toxic metabolic Encephalopathy - chronic Parkinson's disease Cognitive disorder/Underlying dementia Depression CT head 06/18/15: - diffuse atrophy unchanged. No acute intracranial findings Continue Sinemet 25/100 3 times a day via PEG, Seroquel 50 mg twice a day, olanzapine 5 mg a night, Klonopin 2 mg every 8 hours, Paxil 20 daily and Neurontin 300 mg twice a day. These medications have been slowly titrated up since admission Continue Roxanol 5 mg every 4 hours when necessary pain and fentanyl patch 50 g every 3 days for pain management. Resp: Acute on chronic respiratory failure Chronic trach, Pneumonia Right pneumothorax status post pigtail catheter Patient continues on SIMV ventilation 8/500/5+/35%, patient with persistent tachypnea 30s40s. Continue to wean to T piece, Pulmonary Dr. Restrepo following Pulm toilet, trach care. Exchanged from a #8 fenestrated Shiley cuffed tracheostomy to a #6 Shiley fenestrated cuffed on 07/22. Duo nebs 4 times a day and when necessary albuterol. Status post chest tube replacement by interventional radiology on 07/30, chest tube removed 08/04, repeat films to indicate repeat x-rays indicated redevelopment of pneumothorax Chest tube will need to replaced while patient is on ventilator. IR consulted Cardiac History of orthostasis History of CAD, HLP, Hypertension Continue Midodrine 5 mg twice a day Monitor HR and BP keep MAP>65mmHg GI: Malnutrition/protein calorie - moderate Status post PEG Hemorrhoids Gastroesophageal reflux disease - Tolerating Jevity 1.5 at 60 cc an hour. - Currently Prevacid 30 mg per PEG tube daily for GERD - Current Colace/senna for bowel regimen. /metabolic: Nonobstructing left renal calculus Hypernatremia - resolved - Monitor renal function, I/O's. electrolytes replacement per protocol. - Continue on Free H20 200ml 3 times a day monitor - Putnam placed 07/29 ID: Candiduria ESBL positive Klebsiella/Pseudomonas pneumonia MRSA colonization Febrile illness - Patient started on empiric vancomycin and cefepime, due to recurrent febrile illness - Patient recultured Urine culture: 08/02 Klebsiella pneumonia ESBL positive Urine culture: 08/02 no growth for 24 hours Sputum culture: 08/02 Pseudomonas, gram-negative ani Blood culture: 08/02 yeast species - Infectious disease consulted and following the patient - History of Multidrug resistant UTI- ESBL 02/19/15 , MRSA + 03/20/15 - Heena glabrata in urine 03/19/15 - Rechecked blood, sputum and urine cultures 07/06 no growth - 06/17 - blood cultures 2 - CONS/staph epi - 06/17 - sputum - ESBL positive Klebsiella/Pseudomonas Treated 15 days with tobramycin aerosols twice a day. - 06/17 - urine - C. glabrata/tropicalis - treated with Diflucan --Abx monitor for signs of infections ( Fever, WBC) Endo: --SSI if needed for glycemic control Heme Anemia - Monitor CBC MSK Bilateral lower extremity Contractures Stage II DU - Wound care evaluate and treat - Continue physical therapy Prophylaxis - GI - Prevacid - DVT - SCDs/Lovenox Critical Care: Level 3. Time to perform other separately billable procedures was not included in the critical care time. Physician Addendum: Patient seen and examined. Discussed findings, assessment and plan with Erlin HOLLY. Agree with above note. German Medina Aug 06, 2015 07:38 Jules Moss MD Aug 06, 2015 16:51
[2015-08-06] MEDS: RESP: ALBUTEROL 2.5 MG/3 ML NEB (PRN) INH ×2 (08:26→16:13)
--- NOTE | 2015-08-06 10:56 | HHI.IDPN ---
Subjective Subjective Remarks Mr. Foreman is a 54-year-old male with past medical history significant for Parkinson's disease, advanced dementia, hyponatremia, history of ESBL UTI. Admitted with sepsis. Now with Pneumonia, UTI and staph bacteremia Overnight events reviewed UO good. No change in mentation. Not on pressors. Remains on vent/trach. Thick yellow secretions moderate amount. No diarrhea Antibiotics Zosyn IV Vanco IV Lines Line sites with no e/o infection Past Medical History reviewed Allergies: Coded Allergies: *MDRO Multi-Drug Resistant Organism (Verified Adverse Reaction, Unknown, ) ESBL E. coli (urine) - 02/19/2015; ESBL K. pneumoniae (sputum) - 06/18/15, (urine) - 08/03/15 MRSA PCR positive - 03/20/2015 Objective . Vital Signs Date Time Temp Pulse Resp B/P Pulse Ox O2 Delivery O2 Flow Rate FiO2 08/06/15 08:27 100 35 08/06/15 08:27 35 08/06/15 08:00 98.8 90 26 92/64 98 08/06/15 08:00 35 08/06/15 06:00 79 08/06/15 04:28 97 35 08/06/15 04:00 79 08/06/15 04:00 35 08/06/15 04:00 98.2 88 30 102/77 98 08/06/15 02:00 79 08/06/15 01:12 100 35 08/06/15 00:00 97.7 79 30 93/55 98 08/06/15 00:00 35 08/06/15 00:00 79 08/05/15 22:03 98 35 08/05/15 22:00 79 08/05/15 20:00 97.3 87 30 81/56 98 08/05/15 20:00 79 08/05/15 20:00 35 08/05/15 19:42 95 35 08/05/15 18:00 79 08/05/15 16:47 96 35 08/05/15 16:00 35 08/05/15 16:00 87 08/05/15 16:00 97.5 87 30 105/72 98 08/05/15 14:00 82 08/05/15 12:00 97.1 74 21 89/59 98 6/29/16 12:00 35 08/05/15 12:00 74 08/05/15 12:00 98 35 08/05/15 08/05/15 08/06/15 14:59 22:59 06:59 Intake Total 1236 ml 1045 ml 792 ml Output Total 450 ml 500 ml 600 ml Balance 786 ml 545 ml 192 ml IV Total 444 ml 453 ml 252 ml Tube Feeding 612 ml 472 ml 420 ml Tube Irrigant 180 ml 120 ml 120 ml Output Urine Total 450 ml 500 ml 600 ml Chest Tube Drainage Total 0 ml 0 ml 0 ml # Bowel Movements 1 1 2 . Laboratory Tests Test 08/06/15 04:52 White Blood Count 10.4 TH/MM3 Red Blood Count 3.50 MIL/MM3 Hemoglobin 10.2 GM/DL Hematocrit 31.2 % Mean Corpuscular Volume 89.2 FL Mean Corpuscular Hemoglobin 29.1 PG Mean Corpuscular Hemoglobin 32.6 % Concent Red Cell Distribution Width 13.0 % Platelet Count 213 TH/MM3 Mean Platelet Volume 10.6 FL Neutrophils (%) (Auto) 76.0 % Lymphocytes (%) (Auto) 7.3 % Monocytes (%) (Auto) 7.3 % Eosinophils (%) (Auto) 9.0 % Basophils (%) (Auto) 0.4 % Neutrophils # (Auto) 7.9 TH/MM3 Lymphocytes # (Auto) 0.8 TH/MM3 Monocytes # (Auto) 0.8 TH/MM3 Eosinophils # (Auto) 0.9 TH/MM3 Basophils # (Auto) 0.0 TH/MM3 CBC Comment DIFF FINAL Differential Comment Laboratory Tests Test 08/06/15 04:52 Sodium Level 141 MEQ/L Potassium Level 4.5 MEQ/L Chloride Level 104 MEQ/L Carbon Dioxide Level 32.7 MEQ/L Anion Gap 4 MEQ/L Blood Urea Nitrogen 16 MG/DL Creatinine 0.37 MG/DL Estimat Glomerular Filtration 247 ML/MIN Rate Random Glucose 120 MG/DL Calcium Level 8.9 MG/DL Magnesium Level 2.0 MG/DL Microbiology Date/Time Procedure Status Source Growth 08/03/15 13:30 Urine Culture - Final Complete Urine Clean Catch Klebsiella Pneumoniae Esbl Pos 08/03/15 13:46 Aerobic Blood Culture Received Blood Peripheral Pending 08/03/15 13:46 Anaerobic Blood Culture Received Blood Peripheral Pending 08/03/15 15:04 Gram Stain - Final Resulted Sputum Endotracheal 08/03/15 15:04 Sputum Culture - Preliminary Resulted Pseudomonas Species Gram Negative Jesse 08/03/15 16:00 Aerobic Blood Culture - Preliminary Resulted Blood Peripheral NO GROWTH IN 2 DAYS 08/03/15 16:00 Anaerobic Blood Culture - Preliminary Resulted Blood Peripheral NO GROWTH IN 2 DAYS 08/03/15 16:07 Aerobic Blood Culture - Preliminary Resulted Blood Peripheral NO GROWTH IN 2 DAYS 08/03/15 16:07 Anaerobic Blood Culture - Preliminary Resulted Blood Peripheral NO GROWTH IN 2 DAYS 08/03/15 17:13 Urine Culture - Preliminary Resulted Urine Catheterized Urine Yeast Species Imaging Last Impressions Chest X-Ray 06/20/15 0600 Signed Impressions: Service Date/Time: Saturday, June 20, 2015 04:18 - CONCLUSION: No acute cardiopulmonary disease. Eugene Schmid MD Head CT 06/18/151902 Signed Impressions: Service Date/Time: June 19:31 - CONCLUSION: Diffuse atrophy unchanged. No acute intracranial findings. Kush Briscoe MD Abdomen/Pelvis CT 06/18/151902 Signed Impressions: Service Date/Time: June 19:36 - CONCLUSION: 1. Chronic nonspecific urinary bladder wall thickening. Bladder collapsed with Valdez catheter in place. 2. Chronic bilateral mid to lower lung zone groundglass opacity. 3. Nonobstructing left renal calculus. 4. Distended rectum. Kush Briscoe MD Physical Exam GENERAL: Chronically ill-appearing, aphasic, not in acute distress. Cachectic with not much body fat. SKIN: No generalized rashes, ecchymoses or lesions. Cool and dry. HEAD: Atraumatic. Normocephalic. No temporal or scalp tenderness. EYES: Pupils equal round and reactive. ENT: Grossly nothing abnormal detected. Trach site with no evidence of infection. NECK: No lymphadenopathy. Supple, nontender, no meningeal signs. CARDIOVASCULAR: No murmur appreciated. RESPIRATORY: Clear to auscultation. Breath sounds equal bilaterally with decrease in the bases. GASTROINTESTINAL: Abdomen soft, non-tender, nondistended. PEG tube site with no evidence of infection. MUSCULOSKELETAL: Increased tone in all extremities. Rigidity noted. NEUROLOGICAL: Opens eyes spontaneously. No verbal response does not follow commands. Psych could not be assessed IV line sites with no evidence of infection. No lines present on admission. Assessment & Plan Remarks Possible new sepsis (WBC elevation, Fevers, tachycardia, source: UTI or tracheobronchitis) Possible acute tracheobronchitis. ESBL Kleb pneumo and PSAE. Chest x-ray is negative. Acute on chronic respiratory failure was on trach and had to be placed on ventilator. Acute encephalopathy sepsis but has an underlying diagnosis of advanced dementia as well as advanced Parkinson's disease. Prior history of ESBL UTI Urine Cx first one from old valdez with ESBL: likely colonization. Urine Cx from new valdez with yeast likely colonization. Not being treated and clinically improved. Prior history of MRSA colonization. Status post trach Status post gastrostomy tube with no evidence of infection. Stage II sacral decubitus ulcer present on admission. Recommendations Urine Cx first one from old valdez with ESBL: likely colonization. Urine Cx from new valdez with yeast likely colonization. Not being treated and clinically improved. Continue Cefepime IV increase to PSAE doses. Follow cultures Follow clinically. Case discussed with RN and APRIL GUERRA. Case dw APRIL GUERRA: right Pneumothorax patient going to IR later today for pigtail replacement. Sacral decub being evaluated. Wound care instructions being followed. Patient has air leak and cannot be turned at times. CXR with redevelopment of right pneumothorax. Trina Moss MD Aug 06, 2015 10:55
--- NOTE | 2015-08-06 13:11 | HHI.PR ---
Subjective Remarks On the vent and on CPAP, FIo2 35 % . tachypneic . Had chest tube out yesterday , and now has a new right Pneumo. febrile. Output OK. On Vanco and Cefipime. Objective Vital Signs Date Time Temp Pulse Resp B/P Pulse Ox O2 Delivery O2 Flow Rate FiO2 08/06/15 12:00 98.8 71 24 85/54 98 08/06/15 12:00 35 08/06/15 11:38 98 35 08/06/15 08:27 100 35 08/06/15 08:27 35 08/06/15 08:00 98.8 90 26 92/64 98 08/06/15 08:00 35 08/06/15 06:00 79 08/06/15 04:28 97 35 08/06/15 04:00 79 08/06/15 04:00 35 08/06/15 04:00 98.2 88 30 102/77 98 08/06/15 02:00 79 08/06/15 01:12 100 35 08/06/15 00:00 97.7 79 30 93/55 98 08/06/15 00:00 35 08/06/15 00:00 79 08/05/15 22:03 98 35 08/05/15 22:00 79 08/05/15 20:00 97.3 87 30 81/56 98 08/05/15 20:00 79 08/05/15 20:00 35 08/05/15 19:42 95 35 08/05/15 18:00 79 08/05/15 16:47 96 35 08/05/15 16:00 35 08/05/15 16:00 87 08/05/15 16:00 97.5 87 30 105/72 98 08/05/15 14:00 82 I/O 08/05/15 08/05/15 08/05/15 08/06/15 08/06/15 08/06/15 07:00 15:00 23:00 07:00 15:00 23:00 Intake Total 90 ml 1236 ml 1045 ml 792 ml Output Total 400 ml 450 ml 500 ml 600 ml Balance -310 ml 786 ml 545 ml 192 ml Intake Oral 90 ml IV Total 444 ml 453 ml 252 ml Tube Feeding 612 ml 472 ml 420 ml Tube Irrigant 180 ml 120 ml 120 ml Output Urine Total 400 ml 450 ml 500 ml 600 ml Chest Tube Drainage Total 0 ml 0 ml 0 ml # Bowel Movements 0 1 1 2 Result Diagram: 08/06/1545108/06/15 045 Objective Remarks This is a well-nourished male who in on the vent with a trach tube in place. HEENT: Pupils are equal and reactive to light. He has trach in place. CHEST: Bilateral wheeze with occ basal crackles. Decreased breath sounds right chest. CARDIOVASCULAR: S1 and S2 is normal. ABDOMEN: Soft, nondistended. He has a PEG tube in place. EXTREMITIES: No edema. NEURO: Lethargic and Does not move his extremities . Assessment and Plan Assessment and Plan IMPRESSION 1. Respiratory failure, ventilator dependent 2. Sepsis 3. UTI 4. Tracheobronchitis 5. Parkinson's disease 6. Dementia. 7. Severe Deconditioning. 8. Left Pneumothorax. Recurrent Plan : 1. Place on A/C rate 12, PEEP +5, FIO2 35 %. 2. Nebs qid , duoneb. 3. Antibiotics per ID. 4. CPAP 06/17 , during the day. 5. Chest X ray. For Pneumothorax. 6. keep Sedated. Add Ativan .5 mg q6h prn. 7. Tube feeds at 60 CC 8. Lovenox 40 Mg S/Q daily. 9. Chest tube on right per Darren Suero MD Aug 06, 2015 13:11
--- NOTE | 2015-08-06 13:31 | RADRPT ---
EXAM DATE/TIME: 08/06/2015 13:00 [facility] COMPARISON: CHEST SINGLE AP, August 06, 2015, 0:39. INDICATIONS : Pneumothorax. MEDICAL HISTORY : None. SURGICAL HISTORY : None. ENCOUNTER: Initial ACUITY: 1 day PAIN SCORE: Non-responsive. LOCATION: Bilateral chest FINDINGS: The patient underwent previous exam 08/06/15 demonstrating possible right-sided pneumothorax. A single frontal expiratory view of the chest was performed. The exam demonstrates chronic interstiti al changes within the pulmonary parenchyma. No pneumothorax is identified. The area seen on the previ ous chest x-ray is felt to represent either a skinfold simulating a pneumothorax. The tracheostomy tube is in good position. The cardio-mediastinal contours and bronchopulmonary markings are unremarkable for an expiratory exam . Osseous structures are intact. CONCLUSION: Repeat examination of the thorax was performed. There is no right-sided pneumothorax. Blaine Jackson MD on August 06, 2015 at 13:27 Board Certified Radiologist. This report was verified electronically.
[2015-08-06] MEDS: ENOXAPARIN SODIUM 30 MG/0.3 ML SYRINGE SQ SCH (20:13)
[2015-08-06] MEDS: OLANZapine 2.5 MG TAB GT SCH (20:13)
[2015-08-06] MEDS: CHLORHEXIDINE GLUCONATE 2 % 1 PACK (2 CLOTHS) TOP SCH (20:15)
[2015-08-07] VITALS (16 sets, daily range): BP systolic 92–127; BP diastolic 64–93; PULSE 80–93; RESP 18–28; TEMP 97.8–98.8; O2SAT 96–100
[2015-08-07] MEDS: FREE WATER G-TUBE SCH ×3 (02:19→19:29)
[2015-08-07] MEDS: CEFEPIME INJ 2,000 MG in SODIUM CHLORIDE 0.9% INJ 100 ML IV SCH ×3 (02:22→19:28)
[2015-08-07] MEDS: RESP: SODIUM CHLORIDE 3% 4 ML NEB NEB SCH ×4 (03:25→20:54)
[2015-08-07] MEDS: clonazePAM 1 MG TAB PO SCH ×3 (04:20→20:04)
[2015-08-07] MEDS: CARBIDOPA/LEVODOPA 25 MG/100 MG TAB GT SCH ×3 (04:20→20:04)
--- NOTE | 2015-08-07 06:22 | RADRPT ---
EXAM DATE/TIME: 08/07/2015 04:59 [facility] COMPARISON: CHEST EXPIRATION ONLY, August 06, 2015, 13:00. CHEST SINGLE AP, August 06, 2015, 0:39. INDICATIONS : Evaluate for pneumothorax. MEDICAL HISTORY : Hypertension. Gastroesophageal reflux disease. Diabetes mellitus type II. SURGICAL HISTORY : Tracheostomy. ENCOUNTER: Subsequent ACUITY: 1 month PAIN SCORE: Non-responsive. LOCATION: Bilateral chest FINDINGS: No definite pneumothorax is demonstrated. There is been no change in the chronic-appearing interstiti al changes throughout both lung bagley. The tracheostomy tube remains in place. No new infiltrates ar e demonstrated. There are no pleural effusions. The heart size is stable. CONCLUSION: No evidence of pneumothorax. No significant interval change. Ilir Agosto MD on August 07, 2015 at 6:20 Board Certified Radiologist. This report was verified electronically.
[2015-08-07] MEDS: REMOVE OLD PATCH TD SCH (08:00)
[2015-08-07] MEDS: PARoxetine HCL 20 MG TAB G-TUBE SCH (08:25)
[2015-08-07] MEDS: SENNOSIDES SYRUP 8.8 MG/5 ML CUP PO SCH (08:25)
[2015-08-07] MEDS: QUEtiapine FUMARATE 25 MG TAB G-TUBE SCH ×2 (08:25→19:29)
[2015-08-07] MEDS: MIDODRINE 5 MG TAB G-TUBE SCH ×2 (08:26→19:29)
[2015-08-07] MEDS: SODIUM CHLORIDE 0.9% FLUSH 5 ML FLUSH IVF SCH ×2 (08:26→19:29)
[2015-08-07] MEDS: GABAPENTIN 300 MG CAP G-TUBE SCH ×2 (08:26→19:29)
[2015-08-07] MEDS: LACTOBACILLUS ACIDOPHILUS TAB PO SCH ×3 (08:26→17:50)
[2015-08-07] MEDS: fentaNYL 50 MCG/HR PATCH TD SCH (08:28)
[2015-08-07] MEDS: CHLORHEXIDINE 0.12% (ORAL KIT) 15 ML CUP MT SCH ×2 (08:32→20:05)
[2015-08-07] MEDS: ARTIFICIAL TEARS OPTH SOLN 15 ML BTL EACH EYE SCH ×3 (08:32→17:50)
[2015-08-07] MEDS: LANSOPRAZOLE SOLUTAB 30 MG TAB NG SCH (08:32)
[2015-08-07] MEDS: RESP: ALBUTEROL 2.5 MG/3 ML NEB (PRN) INH (08:44)
[2015-08-07] MEDS ORDERED: PHARMACY ORDERED LAB XX ONE (08:45)
--- NOTE | 2015-08-07 09:24 | HHI.CCPN ---
Subjective Remarks/Hospital Course 06/17: Pt is a 54 yr man with multiple medial problems including Parkinson's disease, advanced dementia, hyponatremia, anxiety, pneumonia, GERD, cognitive disorder, and multidrug resistant UTI- ESBL02/19/15 , who resides in a halfway. Pt by report was found by staff in halfway to be less alert and having respiratory difficultly and fevers. Pt was brought to ED adn placed on ventilator. His workup was inclusive of labs, chest xray and ct head and abd/pelvis. WBC 16.4, +UTI, lactic acid 4, troponin ,0.02, BUN/ cre 18/ 0.76. CT head 06/18/15: diffuse atrophy unchanged. No acute intracranial findings ct abd/ pelvis with IV contrast: 06/18/15 Conclusion: 1. Chronic nonspecific urinary bladder wall thickening. Bladder collapsed with Putnam catheter in place. 2.Chronic bilateral mid to lower zone groundglass opacity. 3. Nonobstructing left renal calculus. 4. Distended rectum Pt admitted and fluid and abx ordered. 06/18: Drowsy, easily arousable. On mechanical ventilation via tracheostomy. Tachypneic. Resting tremor noted. 06/19: Drowsy, arousable. On mechanical ventilation via tracheostomy. 06/20: Drowsy, arousable. Remains on mechanical ventilation via tracheostomy. We'll repeat blood cultures, UA and urine cultures. Fluconazole IV added in view of yeast in urine. 07/06: Reconsulted as patient return to the ventilator on a right ventricular due to tachypnea. Low-grade temperatures. Tolerating tube feeding. Extremity encephalopathic demented patient with difficult neurological examination. 07/07: Status post chest tube placement by IR for right pneumothorax 07/06. Afebrile. Tolerating tube feeds. Positive BM. Currently tachypneic on the ventilator. Does not appear to be any acute distress. 07/08: Afebrile. Tolerating tube feeding. He is comfortable currently on CPAP trials 11/10. Positive BM. 07/09: Afebrile. Tolerating tube feeding. Appears comfortable on T bar. Positive BM. 07/10: Afebrile. Eyes are open. Remained on T piece overnight. Tolerating tube feeding. 07/11: MAXIMUM TEMPERATURE 100. Currently 98.6. Eyes are open. On ACV overnight secondary to "tachypnea and sweating". Switching back to PSV trials today. Goal is T piece during daytime, CPAP at night. 07/12: No acute events overnight. On PSV 15/5 -attempt TP up to 6 hours today. No pneumothorax on chest x-ray 07/13: Placed back on full ventilator support for tachypnea. Otherwise clinically unchanged. No fever today 07/14: Patient was on T piece yesterday evening, placed back on PSV overnight, patient mechanical ventilation this morning. Patient appears to be struggling with mechanical ventilation. Patient placed back on PSV with improvement 07/15: Patient placed back on mechanical ventilation last evening due to respiratory rate. It was indicated patient was tachypnea can the 40s. Patient on mechanical ventilation this time with respiration rate mid 20s. Chest tube still in place without any output, chest x-ray still indicating resolution of pneumothorax. 07/16: Patient seen and examined today. Patient placed back on mechanical ventilation overnight due to respiratory rate. Even on mechanical ventilation patient has respiration rate in the 30s. Patient afebrile, blood pressure stable. Continue vent weaning 07/17: Patient seen and examined. Currently afebrile. Currently on CPAP 15/5 @ 40%. Patient is awake with open mouth resting in bed in no apparent acute distress. Tolerating tube feeding. 2 bowel movements. 07/18: No neurological changes. Afebrile. 2 bowel moments. Tolerating tube feeding. We'll attempt TP trials today. On CPAP since 07/15 07/19 No events overnight. On CPAP with PS: 10, PEEP: 5 and FIO2 35%. Afebrile. On no sedation. 07/20 No events overnight. Tolerating CPAP. Afebrile. 07/21: Remains on CPAP. Attempt T piece trial today. Afebrile. One bowel movement. Tolerating tube feeding. 07/22: Afebrile. Positive BM. Tolerating tube feeding. Noted switched tracheostomy to #6 Shiley cuffed fenestrated. Neurologically unchanged 07/23: Afebrile. Positive BM. Tolerating tube feeding. Questionable leak in exchange trach. Place back on a rate/ACV overnight. Insufflated seems to be doing better at the present time. Will check chest x-ray. Possible he might need #6 XLT versus replacement of chronic #8 Shiley. 07/24: Tolerating TP today, RR in low 30s patient appears comfortable. No acute events overnight 07/25: Remains off the ventilator more than 36 hours now. Intermittently tachypneic probably breathing. Chest x-ray was clear yesterday. No acute events reported overnight. PEG not functioning per RN 08/02: Patient was transferred back to critical care service due to continuing ventilator management, tachypnea. Patient clinical status with no significant change. Patient with low-grade fever 100.2, 08/03: Patient seen and examined today. No significant change in clinical status. Patient still with chronic tachypnea. Patient afebrile now. 08/04: Patient seen and examined today. No change in clinical status. Patient still continues to have chronic tachypnea. Patient afebrile. Continue vent weaning 08/05: Patient seen and examined today. Patient had chest tube removed yesterday , chest x-ray shows redevelopment of pneumothorax. Chest tube replaced. Otherwise, patient still on ventilator with tachypnea. Afebrile 08/06: Patient seen and examined today. Patient went to have chest tube placed, repeat chest x-ray did not indicate any pneumothorax. No overnight events. We' ll need to pursue LTAC placement Objective - Vital Signs Date Time Temp Pulse Resp B/P Pulse Ox O2 Delivery O2 Flow Rate FiO2 08/07/15 08:37 99 35 08/07/15 04:00 97.8 83 24 123/80 Intake and Output 08/06/15 08/06/15 08/07/15 08:00 16:00 00:00 Intake Total 792 ml 727 ml 795 ml Output Total 600 ml 500 ml 550 ml Balance 192 ml 227 ml 245 ml Result Diagram: 08/06/15 0452 08/06/15 0452 Other Results Imaging Last Impressions Chest X-Ray 07/22/15 0600 Signed Impressions: Service Date/Time: Wednesday, July 22, 2015 04:17 - CONCLUSION: There has been no significant change when compared to the prior exam. John Anderson MD Tunnelled Chest Tube Removal 07/17/15 0000 Signed Impressions: Service Date/Time: Friday, July 17, 2015 00:00 - CONCLUSION: Uncomplicated chest tube removal. Erlin Mack MD Chest CT 07/11/15 0000 Signed Impressions: Service Date/Time: Saturday, July 11, 2015 09:49 - CONCLUSION: Scattered patchy densities significantly improved from previous study. Tiny anterior right basilar pneumothorax. Right-sided chest tube in good position. Néstor Matamoros MD Chest Tube Insertion 07/07/15 0000 Signed Impressions: Service Date/Time: Tuesday, July 07, 2015 17:14 - CONCLUSION: Uncomplicated right chest tube placement as above. Tai Taylor Jr., MD Head CT 06/18/151902 Signed Impressions: Service Date/Time: June 19:31 - CONCLUSION: Diffuse atrophy unchanged. No acute intracranial findings. Kush Briscoe MD Abdomen/Pelvis CT 06/18/151902 Signed Impressions: Service Date/Time: June 19:36 - CONCLUSION: 1. Chronic nonspecific urinary bladder wall thickening. Bladder collapsed with Putnam catheter in place. 2. Chronic bilateral mid to lower lung zone groundglass opacity. 3. Nonobstructing left renal calculus. 4. Distended rectum. Kush Briscoe MD Objective Remarks GENERAL: 54-year-old male, cachectic, currently on ventilator HEENT: NC/AT. PERRL. MMM dry and pink. Oropharynx without erythema or thrush NECK: No JVD. status post tracheostomy clean/dry and intact CARDIAC: RRR. S1/S2. No S4. No murmurs, clicks gallops or rubs. LUNGS: Clear to auscultation bilaterally. No wheeze, rhonchi or rales. No use of accessory muscles. ABDOMEN: S/NT/ND. Bowel sounds heard in all 4 quadrants. No organomegaly or masses. No guarding/rigidity/rebound. EXTREMITIES: No significant peripheral edema, pulses are equal bilaterally. NEUROLOGY: Patient with significant contractures of the right lower extremity, upper extremities. Eyes open spontaneously. Muscle wasting face, bilateral upper and lower extremities Procedures 07/26- PEG replacement 07/29- right pigtail catheter placement for new pneumothorax 07/29 Urinary Catheter: Yes Assessment to: Continue Putnam insert reason: Prolonged Immobilization Date of Insertion: Jul 30, 2015 Vascular Central Line Catheter: No A/P Assessment and Plan Neuro/Psych: Toxic metabolic Encephalopathy - chronic Parkinson's disease Cognitive disorder/Underlying dementia Depression CT head 06/18/15: - diffuse atrophy unchanged. No acute intracranial findings Continue Sinemet 25/100 3 times a day via PEG, Seroquel 50 mg twice a day, olanzapine 5 mg a night, Klonopin 2 mg every 8 hours, Paxil 20 daily and Neurontin 300 mg twice a day. These medications have been slowly titrated up since admission Continue Roxanol 5 mg every 4 hours when necessary pain and fentanyl patch 50 g every 3 days for pain management. Resp: Acute on chronic respiratory failure Chronic trach, Pneumonia Right pneumothorax status post pigtail catheter Patient continues on SIMV ventilation 8/500/5+/35%, patient with persistent tachypnea 30s40s. Continue to wean to T piece, Pulmonary Dr. Restrepo following Pulm toilet, trach care. Exchanged from a #8 fenestrated Shiley cuffed tracheostomy to a #6 Shiley fenestrated cuffed on 07/22. Duo nebs 4 times a day and when necessary albuterol. Status post chest tube replacement by interventional radiology on 07/30, chest tube removed 08/04, repeat films do not indicate any pneumothorax Cardiac History of orthostasis History of CAD, HLP, Hypertension Continue Midodrine 5 mg twice a day Monitor HR and BP keep MAP>65mmHg GI: Malnutrition/protein calorie - moderate Status post PEG Hemorrhoids Gastroesophageal reflux disease - Tolerating Jevity 1.5 at 60 cc an hour. - Currently Prevacid 30 mg per PEG tube daily for GERD - Current Colace/senna for bowel regimen. /metabolic: Nonobstructing left renal calculus Hypernatremia - resolved - Monitor renal function, I/O's. electrolytes replacement per protocol. - Continue on Free H20 200ml 3 times a day monitor - Putnam placed 07/29 ID: Candiduria ESBL positive Klebsiella/Pseudomonas pneumonia MRSA colonization sepsis - Patient continued on cefepime, dosed for pseudomonas - Patient recultured Urine culture: 08/02 Klebsiella pneumonia ESBL positive Urine culture: 08/02 no growth for 24 hours Sputum culture: 08/02 Pseudomonas, Klebsiella pneumonia ESBL positive Blood culture: 08/02 yeast species, Heena glabrata, Heena tropicalis - Infectious disease consulted and following the patient - History of Multidrug resistant UTI- ESBL 02/19/15 , MRSA + 03/20/15 - Heena glabrata in urine 03/19/15 - Rechecked blood, sputum and urine cultures 07/06 no growth - 06/17 - blood cultures 2 - CONS/staph epi - 06/17 - sputum - ESBL positive Klebsiella/Pseudomonas Treated 15 days with tobramycin aerosols twice a day. - 06/17 - urine - C. glabrata/tropicalis - treated with Diflucan Endo: --SSI if needed for glycemic control Heme Anemia - Monitor CBC MSK Bilateral lower extremity Contractures Stage II DU - Wound care evaluate and treat - Continue physical therapy Prophylaxis - GI - Prevacid - DVT - SCDs/Lovenox subsequent visit Level 3. Addendum: Patient seen with Erlin HOLLY. Discussed findings, assessment and plan with Erlin HOLLY. Agree with above note. German Medina Aug 07, 2015 09:24 Jules Moss MD Aug 07, 2015 15:32
--- NOTE | 2015-08-07 12:08 | HHI.PR ---
Subjective Remarks On the vent and on CPAP, FIo2 35 % . tachypneic . Had chest tube out yesterday , and has no pneumothorax. Output OK. On Vanco and Cefipime. Lethargic. Objective Vital Signs Date Time Temp Pulse Resp B/P Pulse Ox O2 Delivery O2 Flow Rate FiO2 08/07/15 10:00 85 08/07/15 08:37 99 35 08/07/15 08:37 35 08/07/15 08:00 35 08/07/15 08:00 98.7 93 28 123/77 96 08/07/15 08:00 93 08/07/15 04:06 99 50 08/07/15 04:00 97.8 83 24 123/80 98 08/07/15 04:00 35 08/07/15 01:00 99 35 08/07/15 00:00 98.2 85 24 123/93 98 08/07/15 00:00 35 08/06/15 22:24 95 35 08/06/15 20:32 98.3 85 24 122/77 98 08/06/15 20:21 95 35 08/06/15 20:00 35 08/06/15 16:14 94 35 08/06/15 16:00 98.8 88 24 105/68 98 08/06/15 16:00 35 I/O 08/06/15 08/06/15 08/06/15 08/07/15 08/07/15 08/07/15 07:00 15:00 23:00 07:00 15:00 23:00 Intake Total 792 ml 727 ml 795 ml 724 ml Output Total 600 ml 500 ml 550 ml 700 ml Balance 192 ml 227 ml 245 ml 24 ml IV Total 252 ml 183 ml 225 ml 125 ml Tube Feeding 420 ml 344 ml 370 ml 399 ml Tube Irrigant 120 ml Other 200 ml 200 ml 200 ml Output Urine Total 600 ml 500 ml 550 ml 700 ml Chest Tube Drainage Total 0 ml # Bowel Movements 2 1 2 2 Result Diagram: 08/06/1545108/06/15451 Objective Remarks This is a well-nourished male who in on the vent with a trach tube in place. HEENT: Pupils are equal and reactive to light. He has trach in place. CHEST: Bilateral wheeze with occ basal crackles. Bilateral wheeze. CARDIOVASCULAR: S1 and S2 is normal. ABDOMEN: Soft, nondistended. He has a PEG tube in place. EXTREMITIES: No edema. NEURO: Lethargic and Does not move his extremities . Assessment and Plan Assessment and Plan IMPRESSION 1. Respiratory failure, ventilator dependent 2. Sepsis 3. UTI 4. Tracheobronchitis 5. Parkinson's disease 6. Dementia. 7. Severe Deconditioning. 8. Left Pneumothorax. Recurrent Plan : 1. SIMV 10 at HS 7 pm to 7 am. 2. Nebs qid , duoneb. 3. Antibiotics per ID. 4. CPAP 06/17 , during the day. 5. Chest X ray. on monday. 6. keep Sedated. Add Ativan .5 mg q6h prn. 7. Tube feeds at 60 CC 8. Lovenox 40 Mg S/Q daily. Darren Kiser MD Aug 07, 2015 12:07
[2015-08-07] MEDS: OLANZapine 2.5 MG TAB GT SCH (19:29)
[2015-08-07] MEDS: ENOXAPARIN SODIUM 30 MG/0.3 ML SYRINGE SQ SCH (20:04)
[2015-08-07] MEDS: CHLORHEXIDINE GLUCONATE 2 % 1 PACK (2 CLOTHS) TOP SCH (20:22)
--- NOTE | 2015-08-07 20:49 | HHI.IDPN ---
Subjective Subjective Remarks Late entry pt was seen around 1330 today chart reviewed, Mr. Foreman is a 54-year-old male with past medical history significant for Parkinson's disease, advanced dementia, hyponatremia, history of ESBL UTI. Admitted with sepsis. Now with Pneumonia, UTI and staph bacteremia reviewed with nurse Pt is on CPAP quite tachypneic UO good. No change in mentation, basically unresponsive Not on pressors. Remains on vent/trach. Thick yellow secretions moderate amount. No diarrhea Antibiotics cefepime Lines Line sites with no e/o infection Past Medical History reviewed Allergies: Coded Allergies: *MDRO Multi-Drug Resistant Organism (Verified Adverse Reaction, Unknown, ) ESBL E. coli (urine) - 02/19/2015; ESBL K. pneumoniae (sputum) - 06/18/15, (urine) - 08/03/15, (sputum) - 08/03/15 MRSA PCR POSITIVE - 03/20/2015 Objective . Vital Signs Date Time Temp Pulse Resp B/P Pulse Ox O2 Delivery O2 Flow Rate FiO2 08/07/15 20:00 35 08/07/15 20:00 97.9 93 18 127/82 99 08/07/15 20:00 89 08/07/15 18:00 89 08/07/15 16:00 98.8 83 18 92/64 99 08/07/15 16:00 83 08/07/15 16:00 35 08/07/15 15:37 98 35 08/07/15 14:00 93 08/07/15 12:00 80 08/07/15 12:00 35 08/07/15 12:00 98.5 80 26 103/64 98 08/07/15 11:05 98 35 08/07/15 10:00 85 08/07/15 08:37 99 35 08/07/15 08:37 35 08/07/15 08:00 35 08/07/15 08:00 98.7 93 28 123/77 96 08/07/15 08:00 93 08/07/15 04:06 99 50 08/07/15 04:00 97.8 83 24 123/80 98 08/07/15 04:00 35 08/07/15 01:00 99 35 08/07/15 00:00 98.2 85 24 123/93 98 08/07/15 00:00 35 08/06/15 22:24 95 35 08/06/15 08/06/15 08/07/15 15:00 23:00 07:00 Intake Total 727 ml 795 ml 724 ml Output Total 500 ml 550 ml 700 ml Balance 227 ml 245 ml 24 ml IV Total 183 ml 225 ml 125 ml Tube Feeding 344 ml 370 ml 399 ml Other 200 ml 200 ml 200 ml Output Urine Total 500 ml 550 ml 700 ml # Bowel Movements 1 2 2 . Laboratory Tests Test 08/06/15 04:52 White Blood Count 10.4 TH/MM3 Red Blood Count 3.50 MIL/MM3 Hemoglobin 10.2 GM/DL Hematocrit 31.2 % Mean Corpuscular Volume 89.2 FL Mean Corpuscular Hemoglobin 29.1 PG Mean Corpuscular Hemoglobin 32.6 % Concent Red Cell Distribution Width 13.0 % Platelet Count 213 TH/MM3 Mean Platelet Volume 10.6 FL Neutrophils (%) (Auto) 76.0 % Lymphocytes (%) (Auto) 7.3 % Monocytes (%) (Auto) 7.3 % Eosinophils (%) (Auto) 9.0 % Basophils (%) (Auto) 0.4 % Neutrophils # (Auto) 7.9 TH/MM3 Lymphocytes # (Auto) 0.8 TH/MM3 Monocytes # (Auto) 0.8 TH/MM3 Eosinophils # (Auto) 0.9 TH/MM3 Basophils # (Auto) 0.0 TH/MM3 CBC Comment DIFF FINAL Differential Comment Laboratory Tests Test 08/06/15 04:52 Sodium Level 141 MEQ/L Potassium Level 4.5 MEQ/L Chloride Level 104 MEQ/L Carbon Dioxide Level 32.7 MEQ/L Anion Gap 4 MEQ/L Blood Urea Nitrogen 16 MG/DL Creatinine 0.37 MG/DL Estimat Glomerular Filtration 247 ML/MIN Rate Random Glucose 120 MG/DL Calcium Level 8.9 MG/DL Magnesium Level 2.0 MG/DL Imaging Last Impressions Chest X-Ray 08/07/15 0600 Signed Impressions: Service Date/Time: Friday, August 07, 2015 04:59 - CONCLUSION: No evidence of pneumothorax. No significant interval change. Ilir Agosto MD Tunnelled Chest Tube Removal 08/05/15 1100 Signed Impressions: Service Date/Time: Wednesday, August 05, 2015 11:00 - CONCLUSION: Uncomplicated chest tube removal. Blaine Jackson MD Chest Tube Change 07/31/15 Signed Impressions: Service Date/Time: Friday, July 31, 2015 14:34 - CONCLUSION: Uncomplicated reposition of previously placed chest tube as above. Blaine Jackson MD Chest Tube Insertion 07/30/15 Signed Impressions: Service Date/Time: July 14:50 - CONCLUSION: Uncomplicated chest tube placement as above. Blaine Jackson MD Catheter Change 07/27/15 Signed Impressions: Service Date/Time: Monday, July 27, 2015 14:43 - CONCLUSION: Uncomplicated gastrostomy tube exchange as above. Blaine Jackson MD Chest CT 07/11/15 Signed Impressions: Service Date/Time: Saturday, July 11, 2015 09:49 - CONCLUSION: Scattered patchy densities significantly improved from previous study. Tiny anterior right basilar pneumothorax. Right-sided chest tube in good position. Néstor Matamoros MD Head CT 06/18/151902 Signed Impressions: Service Date/Time: June 19:31 - CONCLUSION: Diffuse atrophy unchanged. No acute intracranial findings. Kush Briscoe MD Abdomen/Pelvis CT 06/18/151902 Signed Impressions: Service Date/Time: June 19:36 - CONCLUSION: 1. Chronic nonspecific urinary bladder wall thickening. Bladder collapsed with Valdez catheter in place. 2. Chronic bilateral mid to lower lung zone groundglass opacity. 3. Nonobstructing left renal calculus. 4. Distended rectum. Kush Briscoe MD Physical Exam GENERAL: Chronically ill-appearing, aphasic, not in acute distress. Cachectic SKIN: No generalized rashes, ecchymoses or lesions. Cool and dry. HEAD: Atraumatic. Normocephalic. EYES: Pupils equal round and reactive. ENT: Mucosae moist NECK: No lymphadenopathy. Supple, nontender, no meningeal signs.Trach site with no evidence of infection. CARDIOVASCULAR: No murmur appreciated. RESPIRATORY: Clear to auscultation. Breath sounds equal bilaterally with decrease in the bases. GASTROINTESTINAL: Abdomen soft, non-tender, nondistended. PEG tube site with no evidence of infection. MUSCULOSKELETAL: Increased tone in all extremities. Rigidity noted. NEUROLOGICAL: Opens eyes spontaneously. No verbal response does not follow commands. Psych could not be assessed IV line sites with no evidence of infection. No lines present on admission. Assessment & Plan Remarks acute tracheobronchitis. ESBL Kleb pneumo and PSAE. Chest x-ray is negative, sputum purulent Acute on chronic respiratory failure was on trach and had to be placed on ventilator. Acute encephalopathy sepsis but has an underlying diagnosis of advanced dementia as well as advanced Parkinson's disease. Prior history of ESBL UTI Urine Cx first one from old valdez with ESBL: likely colonization. Funguria likely colonization. Not being treated and clinically improved. Prior history of MRSA colonization. Status post trach Status post gastrostomy tube with no evidence of infection. Stage II sacral decubitus ulcer present on admission. Recommendations Urine Cx first one from old valdez with ESBL: likely colonization. Urine Cx from new valdez with yeast likely colonization. Not being treated and clinically improved. change Cefepime IV to meropenem to cover both ESBL and PSAE Follow cultures Follow clinically. Case discussed with Brittany Huhges MD Aug 07, 2015 20:49
[2015-08-07] MEDS ORDERED: MISCELLANEOUS PHARMACY INFORMATION XX PRN (21:00)
[2015-08-07] MEDS ORDERED: ASP: Documented ESBL, MDR A baumannii or P. aeruginosa XX PRN (21:00)
[2015-08-07] MEDS: MEROPENEM INJ 1,000 MG in SODIUM CHLORIDE 0.9% INJ 100 ML IV SCH (21:28)
[2015-08-08] VITALS (24 sets, daily range): BP systolic 97–118; BP diastolic 6–74; PULSE 74–97; RESP 18–40; TEMP 98–99.5; O2SAT 97–100
[2015-08-08] MEDS: FREE WATER G-TUBE SCH ×3 (00:08→21:13)
[2015-08-08] MEDS: RESP: SODIUM CHLORIDE 3% 4 ML NEB NEB SCH ×4 (03:38→22:33)
[2015-08-08] MEDS: CARBIDOPA/LEVODOPA 25 MG/100 MG TAB GT SCH ×3 (04:57→21:13)
[2015-08-08] MEDS: clonazePAM 1 MG TAB PO SCH ×3 (04:57→21:13)
[2015-08-08] MEDS: MEROPENEM INJ 1,000 MG in SODIUM CHLORIDE 0.9% INJ 100 ML IV SCH ×3 (04:57→21:13)
--- NOTE | 2015-08-08 07:54 | HHI.CCPN ---
Subjective Remarks/Hospital Course 06/17: Pt is a 54 yr man with multiple medial problems including Parkinson's disease, advanced dementia, hyponatremia, anxiety, pneumonia, GERD, cognitive disorder, and multidrug resistant UTI- ESBL02/19/15 , who resides in a custodial. Pt by report was found by staff in custodial to be less alert and having respiratory difficultly and fevers. Pt was brought to ED adn placed on ventilator. His workup was inclusive of labs, chest xray and ct head and abd/pelvis. WBC 16.4, +UTI, lactic acid 4, troponin ,0.02, BUN/ cre 18/ 0.76. CT head 06/18/15: diffuse atrophy unchanged. No acute intracranial findings ct abd/ pelvis with IV contrast: 06/18/15 Conclusion: 1. Chronic nonspecific urinary bladder wall thickening. Bladder collapsed with Putnam catheter in place. 2.Chronic bilateral mid to lower zone groundglass opacity. 3. Nonobstructing left renal calculus. 4. Distended rectum Pt admitted and fluid and abx ordered. 06/18: Drowsy, easily arousable. On mechanical ventilation via tracheostomy. Tachypneic. Resting tremor noted. 06/19: Drowsy, arousable. On mechanical ventilation via tracheostomy. 06/20: Drowsy, arousable. Remains on mechanical ventilation via tracheostomy. We'll repeat blood cultures, UA and urine cultures. Fluconazole IV added in view of yeast in urine. 07/06: Reconsulted as patient return to the ventilator on a right ventricular due to tachypnea. Low-grade temperatures. Tolerating tube feeding. Extremity encephalopathic demented patient with difficult neurological examination. 07/07: Status post chest tube placement by IR for right pneumothorax 07/06. Afebrile. Tolerating tube feeds. Positive BM. Currently tachypneic on the ventilator. Does not appear to be any acute distress. 07/08: Afebrile. Tolerating tube feeding. He is comfortable currently on CPAP trials 11/10. Positive BM. 07/09: Afebrile. Tolerating tube feeding. Appears comfortable on T bar. Positive BM. 07/10: Afebrile. Eyes are open. Remained on T piece overnight. Tolerating tube feeding. 07/11: MAXIMUM TEMPERATURE 100. Currently 98.6. Eyes are open. On ACV overnight secondary to "tachypnea and sweating". Switching back to PSV trials today. Goal is T piece during daytime, CPAP at night. 07/12: No acute events overnight. On PSV 15/5 -attempt TP up to 6 hours today. No pneumothorax on chest x-ray 07/13: Placed back on full ventilator support for tachypnea. Otherwise clinically unchanged. No fever today 07/14: Patient was on T piece yesterday evening, placed back on PSV overnight, patient mechanical ventilation this morning. Patient appears to be struggling with mechanical ventilation. Patient placed back on PSV with improvement 07/15: Patient placed back on mechanical ventilation last evening due to respiratory rate. It was indicated patient was tachypnea can the 40s. Patient on mechanical ventilation this time with respiration rate mid 20s. Chest tube still in place without any output, chest x-ray still indicating resolution of pneumothorax. 07/16: Patient seen and examined today. Patient placed back on mechanical ventilation overnight due to respiratory rate. Even on mechanical ventilation patient has respiration rate in the 30s. Patient afebrile, blood pressure stable. Continue vent weaning 07/17: Patient seen and examined. Currently afebrile. Currently on CPAP 15/5 @ 40%. Patient is awake with open mouth resting in bed in no apparent acute distress. Tolerating tube feeding. 2 bowel movements. 07/18: No neurological changes. Afebrile. 2 bowel moments. Tolerating tube feeding. We'll attempt TP trials today. On CPAP since 07/15 07/19 No events overnight. On CPAP with PS: 10, PEEP: 5 and FIO2 35%. Afebrile. On no sedation. 07/20 No events overnight. Tolerating CPAP. Afebrile. 07/21: Remains on CPAP. Attempt T piece trial today. Afebrile. One bowel movement. Tolerating tube feeding. 07/22: Afebrile. Positive BM. Tolerating tube feeding. Noted switched tracheostomy to #6 Shiley cuffed fenestrated. Neurologically unchanged 07/23: Afebrile. Positive BM. Tolerating tube feeding. Questionable leak in exchange trach. Place back on a rate/ACV overnight. Insufflated seems to be doing better at the present time. Will check chest x-ray. Possible he might need #6 XLT versus replacement of chronic #8 Shiley. 07/24: Tolerating TP today, RR in low 30s patient appears comfortable. No acute events overnight 07/25: Remains off the ventilator more than 36 hours now. Intermittently tachypneic probably breathing. Chest x-ray was clear yesterday. No acute events reported overnight. PEG not functioning per RN 08/02: Patient was transferred back to critical care service due to continuing ventilator management, tachypnea. Patient clinical status with no significant change. Patient with low-grade fever 100.2, 08/03: Patient seen and examined today. No significant change in clinical status. Patient still with chronic tachypnea. Patient afebrile now. 08/04: Patient seen and examined today. No change in clinical status. Patient still continues to have chronic tachypnea. Patient afebrile. Continue vent weaning 08/05: Patient seen and examined today. Patient had chest tube removed yesterday , chest x-ray shows redevelopment of pneumothorax. Chest tube replaced. Otherwise, patient still on ventilator with tachypnea. Afebrile 08/06: Patient seen and examined today. Patient went to have chest tube placed, repeat chest x-ray did not indicate any pneumothorax. No overnight events. We' ll need to pursue LTAC placement 08/07 No events overnight. On ventilator via trach. Afebrile. Objective - Vital Signs Date Time Temp Pulse Resp B/P Pulse Ox O2 Delivery O2 Flow Rate FiO2 08/08/15 06:00 89 08/08/15 04:04 98.0 18 109/67 99 08/08/15 04:00 35 Intake and Output 08/07/15 08/07/15 08/08/15 08:00 16:00 00:00 Intake Total 724 ml 1139 ml 960 ml Output Total 700 ml 750 ml 750 ml Balance 24 ml 389 ml 210 ml Result Diagram: 08/06/15 0452 08/06/15 0452 Other Results Imaging Last Impressions Chest X-Ray 08/07/15 0600 Signed Impressions: Service Date/Time: Friday, August 07, 2015 04:59 - CONCLUSION: No evidence of pneumothorax. No significant interval change. Ilir Agosto MD Tunnelled Chest Tube Removal 08/05/15 1100 Signed Impressions: Service Date/Time: Wednesday, August 05, 2015 11:00 - CONCLUSION: Uncomplicated chest tube removal. Blaine Jackson MD Chest Tube Change 07/31/15 0000 Signed Impressions: Service Date/Time: Friday, July 31, 2015 14:34 - CONCLUSION: Uncomplicated reposition of previously placed chest tube as above. Blaine Jackson MD Chest Tube Insertion 07/30/15 0000 Signed Impressions: Service Date/Time: July 14:50 - CONCLUSION: Uncomplicated chest tube placement as above. Blaine Jackson MD Catheter Change 07/27/15 Signed Impressions: Service Date/Time: Monday, July 27, 2015 14:43 - CONCLUSION: Uncomplicated gastrostomy tube exchange as above. Blaine Jackson MD Chest CT 07/11/15 Signed Impressions: Service Date/Time: Saturday, July 11, 2015 09:49 - CONCLUSION: Scattered patchy densities significantly improved from previous study. Tiny anterior right basilar pneumothorax. Right-sided chest tube in good position. Néstor Matamoros MD Head CT 06/18/151902 Signed Impressions: Service Date/Time: , June 18, 2015 19:31 - CONCLUSION: Diffuse atrophy unchanged. No acute intracranial findings. Kush Briscoe MD Abdomen/Pelvis CT 06/18/151902 Signed Impressions: Service Date/Time: June 19:36 - CONCLUSION: 1. Chronic nonspecific urinary bladder wall thickening. Bladder collapsed with Putnam catheter in place. 2. Chronic bilateral mid to lower lung zone groundglass opacity. 3. Nonobstructing left renal calculus. 4. Distended rectum. Kush Briscoe MD Objective Remarks GENERAL: 54-year-old male, cachectic, currently on ventilator HEENT: NC/AT. PERRL. MMM dry and pink. Oropharynx without erythema or thrush NECK: No JVD. status post tracheostomy clean/dry and intact CARDIAC: RRR. S1/S2. No S4. No murmurs, clicks gallops or rubs. LUNGS: Clear to auscultation bilaterally. No wheeze, rhonchi or rales. No use of accessory muscles. ABDOMEN: S/NT/ND. Bowel sounds heard in all 4 quadrants. No organomegaly or masses. No guarding/rigidity/rebound. EXTREMITIES: No significant peripheral edema, pulses are equal bilaterally. NEUROLOGY: Patient with significant contractures of the right lower extremity, upper extremities. Eyes open spontaneously. Muscle wasting face, bilateral upper and lower extremities Procedures 07/26- PEG replacement 07/29- right pigtail catheter placement for new pneumothorax 07/29 Date of Insertion: Jul 30, 2015 A/P Assessment and Plan Neuro/Psych: Toxic metabolic Encephalopathy - chronic Parkinson's disease Cognitive disorder/Underlying dementia Depression CT head 06/18/15: - diffuse atrophy unchanged. No acute intracranial findings Continue Sinemet 25/100 3 times a day via PEG, Seroquel 50 mg twice a day, olanzapine 5 mg a night, Klonopin 2 mg every 8 hours, Paxil 20 daily and Neurontin 300 mg twice a day. These medications have been slowly titrated up since admission Continue Roxanol 5 mg every 4 hours when necessary pain and fentanyl patch 50 g every 3 days for pain management. Resp: Acute on chronic respiratory failure Chronic trach, Pneumonia Right pneumothorax status post pigtail catheter Continue with vent support keep sat >92%. Pulmonary Dr. Restrepo following Pulm toilet, trach care. Exchanged from a #8 fenestrated Shiley cuffed tracheostomy to a #6 Shiley fenestrated cuffed on 07/22. Duo nebs 4 times a day and when necessary albuterol. Status post chest tube replacement by interventional radiology on 07/30, chest tube removed 08/04, repeat films do not indicate any pneumothorax Cardiac History of orthostasis History of CAD, HLP, Hypertension Continue Midodrine 5 mg twice a day Monitor HR and BP keep MAP>65mmHg GI: Malnutrition/protein calorie - moderate Status post PEG Hemorrhoids Gastroesophageal reflux disease - Tolerating Jevity 1.5 at 60 cc an hour. - Currently Prevacid 30 mg per PEG tube daily for GERD - Current Colace/senna for bowel regimen. /metabolic: Nonobstructing left renal calculus Hypernatremia - resolved - Monitor renal function, I/O's. electrolytes replacement per protocol. - Continue on Free H20 200ml TID - Putnam placed 07/29 ID: Candiduria ESBL positive Klebsiella/Pseudomonas pneumonia MRSA colonization sepsis Continue with abx per ID ( Merrem)monitor for signs of infections ( Fever, WBC) - Patient recultured Urine culture: 08/02 Klebsiella pneumonia ESBL positive Urine culture: 08/02 Heena Tropicalis, C. Glabrata Sputum culture: 08/02 Pseudomonas, Klebsiella pneumonia ESBL positive Blood culture: 08/02 yeast species, Heena glabrata, Heena tropicalis - History of Multidrug resistant UTI- ESBL 02/19/15 , MRSA + 03/20/15 - Heena glabrata in urine 03/19/15 - Rechecked blood, sputum and urine cultures 07/06 no growth - 06/17 - blood cultures 2 - CONS/staph epi - 06/17 - sputum - ESBL positive Klebsiella/Pseudomonas Treated 15 days with tobramycin aerosols twice a day. - 06/17 - urine - C. glabrata/tropicalis - treated with Diflucan Endo: --SSI if needed for glycemic control Heme Anemia - Monitor CBC MSK Bilateral lower extremity Contractures Stage II DU - Wound care evaluate and treat - Continue physical therapy Prophylaxis - GI - Prevacid - DVT - SCDs/Lovenox Check labs today CCT 30 mins Antonio Carr MD Aug 08, 2015 07:54
[2015-08-08] MEDS: GABAPENTIN 300 MG CAP G-TUBE SCH ×2 (08:57→20:00)
[2015-08-08] MEDS: PARoxetine HCL 20 MG TAB G-TUBE SCH (08:57)
[2015-08-08] MEDS: QUEtiapine FUMARATE 25 MG TAB G-TUBE SCH ×2 (08:57→20:00)
[2015-08-08] MEDS: ARTIFICIAL TEARS OPTH SOLN 15 ML BTL EACH EYE SCH ×3 (08:57→17:38)
[2015-08-08] MEDS: CHLORHEXIDINE 0.12% (ORAL KIT) 15 ML CUP MT SCH ×2 (08:57→20:00)
[2015-08-08] MEDS: MIDODRINE 5 MG TAB G-TUBE SCH ×2 (08:57→20:00)
[2015-08-08] MEDS: SENNOSIDES SYRUP 8.8 MG/5 ML CUP PO SCH (08:57)
[2015-08-08] MEDS: LACTOBACILLUS ACIDOPHILUS TAB PO SCH ×3 (08:57→17:38)
[2015-08-08] MEDS: LANSOPRAZOLE SOLUTAB 30 MG TAB NG SCH (08:57)
[2015-08-08] MEDS: SODIUM CHLORIDE 0.9% FLUSH 5 ML FLUSH IVF SCH ×2 (08:58→20:00)
[2015-08-08 10:29] LABS: AUTOMATED NEUTROPHIL # 8.4 TH/MM3 (1.8-7.7); BASOPHIL # 0.1 TH/MM3 (0-0.2); BASOPHIL % 0.5 % (0.0-2.0); EOSINOPHIL # 0.9 TH/MM3 (0-0.4); EOSINOPHIL % 7.9 % (0.0-4.0); HEMATOCRIT 31.1 % (39.0-51.0); HEMO FLAGS DIFF FINAL; LYMPH % 11.7 % (9.0-44.0); LYMPHOCYTE # 1.3 TH/MM3 (1.0-4.8); MEAN CELL VOLUME 88.4 FL (80.0-100.0); MEAN CORPUSCULAR HEMOGLOBIN 28.4 PG (27.0-34.0); MEAN CORPUSCULAR HGB CONC 32.1 % (32.0-36.0); MONO % 5.7 % (0.0-8.0); NEUT % 74.2 % (16.0-70.0); PLATELET COUNT 251 TH/MM3 (150-450); RED BLOOD COUNT 3.51 MIL/MM3 (4.50-5.90); RED CELL DISTRIBUTION WIDTH 13.1 % (11.6-17.2); WHITE BLOOD COUNT 11.3 TH/MM3 (4.0-11.0)
[2015-08-08 10:44] LABS: BICARBONATE 36.7 MEQ/L (21.0-32.0); MAGNESIUM 1.9 MG/DL (1.5-2.5); POTASSIUM 4.2 MEQ/L (3.5-5.1)
[2015-08-08] MEDS: MORPHINE SULFATE 4 MG/ML INJ IV PUSH PRN (15:27)
[2015-08-08] MEDS: OLANZapine 2.5 MG TAB GT SCH (20:00)
[2015-08-08] MEDS: ENOXAPARIN SODIUM 30 MG/0.3 ML SYRINGE SQ SCH (21:13)
[2015-08-09] VITALS (20 sets, daily range): BP systolic 94–111; BP diastolic 57–75; PULSE 79–91; RESP 16–34; TEMP 98.1–98.8; O2SAT 97–100
[2015-08-09] MEDS: CHLORHEXIDINE GLUCONATE 2 % 1 PACK (2 CLOTHS) TOP SCH (04:00)
[2015-08-09] MEDS: RESP: SODIUM CHLORIDE 3% 4 ML NEB NEB SCH ×4 (04:03→22:28)
[2015-08-09] MEDS: clonazePAM 1 MG TAB PO SCH ×3 (05:03→21:17)
[2015-08-09] MEDS: CARBIDOPA/LEVODOPA 25 MG/100 MG TAB GT SCH ×3 (05:03→21:17)
[2015-08-09] MEDS: FREE WATER G-TUBE SCH ×3 (05:03→21:18)
[2015-08-09] MEDS: MEROPENEM INJ 1,000 MG in SODIUM CHLORIDE 0.9% INJ 100 ML IV SCH ×3 (05:03→21:17)
[2015-08-09 05:38] LABS: AUTOMATED NEUTROPHIL # 9.6 TH/MM3 (1.8-7.7); BASOPHIL # 0.1 TH/MM3 (0-0.2); BASOPHIL % 0.6 % (0.0-2.0); EOSINOPHIL # 0.9 TH/MM3 (0-0.4); EOSINOPHIL % 7.2 % (0.0-4.0); HEMATOCRIT 29.6 % (39.0-51.0); HEMO FLAGS DIFF FINAL; LYMPHOCYTE # 1.2 TH/MM3 (1.0-4.8); MEAN CORPUSCULAR HEMOGLOBIN 28.4 PG (27.0-34.0); MONO % 5.5 % (0.0-8.0); NEUT % 76.7 % (16.0-70.0); PLATELET COUNT 231 TH/MM3 (150-450); RED BLOOD COUNT 3.32 MIL/MM3 (4.50-5.90); RED CELL DISTRIBUTION WIDTH 13.5 % (11.6-17.2); WHITE BLOOD COUNT 12.5 TH/MM3 (4.0-11.0)
[2015-08-09 06:06] LABS: BICARBONATE 35.9 MEQ/L (21.0-32.0); POTASSIUM 4.1 MEQ/L (3.5-5.1)
--- NOTE | 2015-08-09 07:54 | HHI.CCPN ---
Subjective Remarks/Hospital Course 06/17: Pt is a 54 yr man with multiple medial problems including Parkinson's disease, advanced dementia, hyponatremia, anxiety, pneumonia, GERD, cognitive disorder, and multidrug resistant UTI- ESBL02/19/15 , who [facility]. Pt by report was found by staff in jail to be less alert and having respiratory difficultly and fevers. Pt was brought to ED adn placed on ventilator. His workup was inclusive of labs, chest xray and ct head and abd/pelvis. WBC 16.4, +UTI, lactic acid 4, troponin ,0.02, BUN/ cre 18/ 0.76. CT head 06/18/15: diffuse atrophy unchanged. No acute intracranial findings ct abd/ pelvis with IV contrast: 06/18/15 Conclusion: 1. Chronic nonspecific urinary bladder wall thickening. Bladder collapsed with Putnam catheter in place. 2.Chronic bilateral mid to lower zone groundglass opacity. 3. Nonobstructing left renal calculus. 4. Distended rectum Pt admitted and fluid and abx ordered. 06/18: Drowsy, easily arousable. On mechanical ventilation via tracheostomy. Tachypneic. Resting tremor noted. 06/19: Drowsy, arousable. On mechanical ventilation via tracheostomy. 06/20: Drowsy, arousable. Remains on mechanical ventilation via tracheostomy. We'll repeat blood cultures, UA and urine cultures. Fluconazole IV added in view of yeast in urine. 07/06: Reconsulted as patient return to the ventilator on a right ventricular due to tachypnea. Low-grade temperatures. Tolerating tube feeding. Extremity encephalopathic demented patient with difficult neurological examination. 07/07: Status post chest tube placement by IR for right pneumothorax 07/06. Afebrile. Tolerating tube feeds. Positive BM. Currently tachypneic on the ventilator. Does not appear to be any acute distress. 07/08: Afebrile. Tolerating tube feeding. He is comfortable currently on CPAP trials 11/10. Positive BM. 07/09: Afebrile. Tolerating tube feeding. Appears comfortable on T bar. Positive BM. 07/10: Afebrile. Eyes are open. Remained on T piece overnight. Tolerating tube feeding. 07/11: MAXIMUM TEMPERATURE 100. Currently 98.6. Eyes are open. On ACV overnight secondary to "tachypnea and sweating". Switching back to PSV trials today. Goal is T piece during daytime, CPAP at night. 07/12: No acute events overnight. On PSV 15/5 -attempt TP up to 6 hours today. No pneumothorax on chest x-ray 07/13: Placed back on full ventilator support for tachypnea. Otherwise clinically unchanged. No fever today 07/14: Patient was on T piece yesterday evening, placed back on PSV overnight, patient mechanical ventilation this morning. Patient appears to be struggling with mechanical ventilation. Patient placed back on PSV with improvement 07/15: Patient placed back on mechanical ventilation last evening due to respiratory rate. It was indicated patient was tachypnea can the 40s. Patient on mechanical ventilation this time with respiration rate mid 20s. Chest tube still in place without any output, chest x-ray still indicating resolution of pneumothorax. 07/16: Patient seen and examined today. Patient placed back on mechanical ventilation overnight due to respiratory rate. Even on mechanical ventilation patient has respiration rate in the 30s. Patient afebrile, blood pressure stable. Continue vent weaning 07/17: Patient seen and examined. Currently afebrile. Currently on CPAP 15/5 @ 40%. Patient is awake with open mouth resting in bed in no apparent acute distress. Tolerating tube feeding. 2 bowel movements. 07/18: No neurological changes. Afebrile. 2 bowel moments. Tolerating tube feeding. We'll attempt TP trials today. On CPAP since 07/15 07/19 No events overnight. On CPAP with PS: 10, PEEP: 5 and FIO2 35%. Afebrile. On no sedation. 07/20 No events overnight. Tolerating CPAP. Afebrile. 07/21: Remains on CPAP. Attempt T piece trial today. Afebrile. One bowel movement. Tolerating tube feeding. 07/22: Afebrile. Positive BM. Tolerating tube feeding. Noted switched tracheostomy to #6 Shiley cuffed fenestrated. Neurologically unchanged 07/23: Afebrile. Positive BM. Tolerating tube feeding. Questionable leak in exchange trach. Place back on a rate/ACV overnight. Insufflated seems to be doing better at the present time. Will check chest x-ray. Possible he might need #6 XLT versus replacement of chronic #8 Shiley. 07/24: Tolerating TP today, RR in low 30s patient appears comfortable. No acute events overnight 07/25: Remains off the ventilator more than 36 hours now. Intermittently tachypneic probably breathing. Chest x-ray was clear yesterday. No acute events reported overnight. PEG not functioning per RN 08/02: Patient was transferred back to critical care service due to continuing ventilator management, tachypnea. Patient clinical status with no significant change. Patient with low-grade fever 100.2, 08/03: Patient seen and examined today. No significant change in clinical status. Patient still with chronic tachypnea. Patient afebrile now. 08/04: Patient seen and examined today. No change in clinical status. Patient still continues to have chronic tachypnea. Patient afebrile. Continue vent weaning 08/05: Patient seen and examined today. Patient had chest tube removed yesterday , chest x-ray shows redevelopment of pneumothorax. Chest tube replaced. Otherwise, patient still on ventilator with tachypnea. Afebrile 08/06: Patient seen and examined today. Patient went to have chest tube placed, repeat chest x-ray did not indicate any pneumothorax. No overnight events. We' ll need to pursue LTAC placement 08/07 No events overnight. On ventilator via trach. Afebrile. 08/08 Patient tolerated CPAP x4 hrs yesterday. Afebrile. On no sedation. Objective - Vital Signs Date Time Temp Pulse Resp B/P Pulse Ox O2 Delivery O2 Flow Rate FiO2 08/09/15 06:00 88 08/09/15 04:05 100 35 08/09/15 04:00 98.6 25 106/69 08/08/15 08:04 Ventilator Intake and Output 08/08/15 08/08/15 08/09/15 08:00 16:00 00:00 Intake Total 1150 ml 1125 ml 1311 ml Output Total 700 ml 450 ml 250 ml Balance 450 ml 675 ml 1061 ml Result Diagram: 08/09/15 0356 08/09/15 0356 Other Results Laboratory Tests Test 08/08/15 08/09/15 09:30 03:56 White Blood Count 11.3 TH/MM3 12.5 TH/MM3 Red Blood Count 3.51 MIL/MM3 3.32 MIL/MM3 Hemoglobin 10.0 GM/DL 9.5 GM/DL Hematocrit 31.1 % 29.6 % Mean Corpuscular Volume 88.4 FL 89.0 FL Mean Corpuscular Hemoglobin 28.4 PG 28.4 PG Mean Corpuscular Hemoglobin 32.1 % 32.0 % Concent Red Cell Distribution Width 13.1 % 13.5 % Platelet Count 251 TH/MM3 231 TH/MM3 Mean Platelet Volume 10.5 FL 10.3 FL Neutrophils (%) (Auto) 74.2 % 76.7 % Lymphocytes (%) (Auto) 11.7 % 10.0 % Monocytes (%) (Auto) 5.7 % 5.5 % Eosinophils (%) (Auto) 7.9 % 7.2 % Basophils (%) (Auto) 0.5 % 0.6 % Neutrophils # (Auto) 8.4 TH/MM3 9.6 TH/MM3 Lymphocytes # (Auto) 1.3 TH/MM3 1.2 TH/MM3 Monocytes # (Auto) 0.6 TH/MM3 0.7 TH/MM3 Eosinophils # (Auto) 0.9 TH/MM3 0.9 TH/MM3 Basophils # (Auto) 0.1 TH/MM3 0.1 TH/MM3 CBC Comment DIFF FINAL DIFF FINAL Differential Comment Sodium Level 142 MEQ/L 142 MEQ/L Potassium Level 4.2 MEQ/L 4.1 MEQ/L Chloride Level 102 MEQ/L 101 MEQ/L Carbon Dioxide Level 36.7 MEQ/L 35.9 MEQ/L Anion Gap 3 MEQ/L 5 MEQ/L Blood Urea Nitrogen 14 MG/DL 14 MG/DL Creatinine 0.47 MG/DL 0.38 MG/DL Estimat Glomerular Filtration 188 ML/MIN 240 ML/MIN Rate Random Glucose 136 MG/DL 115 MG/DL Calcium Level 9.1 MG/DL 8.9 MG/DL Phosphorus Level 2.5 MG/DL Magnesium Level 1.9 MG/DL Imaging Last Impressions Chest X-Ray 08/07/15 0600 Signed Impressions: Service Date/Time: Friday, August 07, 2015 04:59 - CONCLUSION: No evidence of pneumothorax. No significant interval change. Ilir Agosto MD Tunnelled Chest Tube Removal 08/05/15 1100 Signed Impressions: Service Date/Time: Wednesday, August 05, 2015 11:00 - CONCLUSION: Uncomplicated chest tube removal. Blaine Jackson MD Chest Tube Change 6/24/16 0000 Signed Impressions: Service Date/Time: Friday, July 31, 2015 14:34 - CONCLUSION: Uncomplicated reposition of previously placed chest tube as above. Blaine Jackson MD Chest Tube Insertion 07/30/15 Signed Impressions: Service Date/Time: July 14:50 - CONCLUSION: Uncomplicated chest tube placement as above. Blaine Jackson MD Catheter Change 07/27/15 Signed Impressions: Service Date/Time: Monday, July 27, 2015 14:43 - CONCLUSION: Uncomplicated gastrostomy tube exchange as above. Blaine Jackson MD Chest CT 07/11/15 Signed Impressions: Service Date/Time: Saturday, July 11, 2015 09:49 - CONCLUSION: Scattered patchy densities significantly improved from previous study. Tiny anterior right basilar pneumothorax. Right-sided chest tube in good position. Néstor Matamoros MD Head CT 06/18/151902 Signed Impressions: Service Date/Time: June 19:31 - CONCLUSION: Diffuse atrophy unchanged. No acute intracranial findings. Kush Briscoe MD Abdomen/Pelvis CT 06/18/151902 Signed Impressions: Service Date/Time: June 19:36 - CONCLUSION: 1. Chronic nonspecific urinary bladder wall thickening. Bladder collapsed with Putnam catheter in place. 2. Chronic bilateral mid to lower lung zone groundglass opacity. 3. Nonobstructing left renal calculus. 4. Distended rectum. Kush Briscoe MD Objective Remarks GENERAL: 54-year-old male, cachectic, currently on ventilator HEENT: NC/AT. PERRL. MMM dry and pink. Oropharynx without erythema or thrush NECK: No JVD. status post tracheostomy clean/dry and intact CARDIAC: RRR. S1/S2. No S4. No murmurs, clicks gallops or rubs. LUNGS: Clear to auscultation bilaterally. No wheeze, rhonchi or rales. No use of accessory muscles. ABDOMEN: S/NT/ND. Bowel sounds heard in all 4 quadrants. No organomegaly or masses. No guarding/rigidity/rebound. EXTREMITIES: No significant peripheral edema, pulses are equal bilaterally. NEUROLOGY: Patient with significant contractures of the right lower extremity, upper extremities. Eyes open spontaneously. Muscle wasting face, bilateral upper and lower extremities Procedures 07/26- PEG replacement 07/29- right pigtail catheter placement for new pneumothorax 07/29 Date of Insertion: Jul 30, 2015 A/P Assessment and Plan Neuro/Psych: Toxic metabolic Encephalopathy - chronic Parkinson's disease Cognitive disorder/Underlying dementia Depression CT head 06/18/15: - diffuse atrophy unchanged. No acute intracranial findings Continue Sinemet 25/100 3 times a day via PEG, Seroquel 50 mg twice a day, olanzapine 5 mg a night, Klonopin 2 mg every 8 hours, Paxil 20 daily and Neurontin 300 mg twice a day. These medications have been slowly titrated up since admission Continue Roxanol 5 mg every 4 hours when necessary pain and fentanyl patch 50 g every 3 days for pain management. Resp: Acute on chronic respiratory failure Chronic trach, Pneumonia Right pneumothorax status post pigtail catheter Continue with vent support keep sat >92%. Pulmonary Dr. Restrepo following Pulm toilet, trach care. Exchanged from a #8 fenestrated Shiley cuffed tracheostomy to a #6 Shiley fenestrated cuffed on 07/22. Duo nebs 4 times a day and when necessary albuterol. Status post chest tube replacement by interventional radiology on 07/30, chest tube removed 08/04, repeat films do not indicate any pneumothorax Cardiac History of orthostasis History of CAD, HLP, Hypertension Continue Midodrine 5 mg twice a day Monitor HR and BP keep MAP>65mmHg GI: Malnutrition/protein calorie - moderate Status post PEG Hemorrhoids Gastroesophageal reflux disease - Tolerating Jevity 1.5 at 60 cc an hour. - Currently Prevacid 30 mg per PEG tube daily for GERD - Current Colace/senna for bowel regimen. /metabolic: Nonobstructing left renal calculus Hypernatremia - resolved - Monitor renal function, I/O's. electrolytes replacement per protocol. - Continue on Free H20 200ml TID. Diurese with Bumex 1mg x1 - Putnam placed 07/29 ID: Candiduria ESBL positive Klebsiella/Pseudomonas pneumonia MRSA colonization sepsis Continue with abx per ID ( Merrem)monitor for signs of infections ( Fever, WBC) - Patient recultured Urine culture: 08/02 Klebsiella pneumonia ESBL positive Urine culture: 08/02 Heena Tropicalis, C. Glabrata Sputum culture: 08/02 Pseudomonas, Klebsiella pneumonia ESBL positive Blood culture: 08/02 yeast species, Heena glabrata, Heena tropicalis - History of Multidrug resistant UTI- ESBL 02/19/15 , MRSA + 03/20/15 - Heena glabrata in urine 03/19/15 - Rechecked blood, sputum and urine cultures 07/06 no growth - 06/17 - blood cultures 2 - CONS/staph epi - 06/17 - sputum - ESBL positive Klebsiella/Pseudomonas Treated 15 days with tobramycin aerosols twice a day. - 06/17 - urine - C. glabrata/tropicalis - treated with Diflucan Endo: --SSI if needed for glycemic control Heme Anemia - Monitor CBC MSK Bilateral lower extremity Contractures Stage II DU - Wound care evaluate and treat - Continue physical therapy Prophylaxis - GI - Prevacid - DVT - SCDs/Lovenox CCT 30 mins Antonio Carr MD Aug 09, 2015 07:54
[2015-08-09] MEDS: GABAPENTIN 300 MG CAP G-TUBE SCH ×2 (08:13→21:17)
[2015-08-09] MEDS: SODIUM CHLORIDE 0.9% FLUSH 5 ML FLUSH IVF SCH ×2 (08:13→21:19)
[2015-08-09] MEDS: SENNOSIDES SYRUP 8.8 MG/5 ML CUP PO SCH (08:13)
[2015-08-09] MEDS: PARoxetine HCL 20 MG TAB G-TUBE SCH (08:13)
[2015-08-09] MEDS: LACTOBACILLUS ACIDOPHILUS TAB PO SCH ×3 (08:13→17:02)
[2015-08-09] MEDS: QUEtiapine FUMARATE 25 MG TAB G-TUBE SCH ×2 (08:13→21:17)
[2015-08-09] MEDS: LANSOPRAZOLE SOLUTAB 30 MG TAB NG SCH (08:13)
[2015-08-09] MEDS: MIDODRINE 5 MG TAB G-TUBE SCH ×2 (08:13→21:18)
[2015-08-09] MEDS: ARTIFICIAL TEARS OPTH SOLN 15 ML BTL EACH EYE SCH ×3 (08:15→17:02)
[2015-08-09] MEDS: CHLORHEXIDINE 0.12% (ORAL KIT) 15 ML CUP MT SCH ×2 (08:18→21:17)
[2015-08-09] MEDS ORDERED: BUMETANIDE INJ 1 MG/4 ML VIAL IV PUSH ONE (09:00)
[2015-08-09] MEDS: MORPHINE SULFATE 4 MG/ML INJ IV PUSH PRN ×2 (10:29→21:18)
--- NOTE | 2015-08-09 13:57 | HHI.IDPN ---
Subjective Subjective Remarks ID Xcover for Dr Moss Pt remains on vent still a lot of secretions toletated CPAP x 4 hrs afebrile diarrhea 5-6 BMs /d off pressors WBC going up Antibiotics meropenem Lines Line sites with no e/o infection Past Medical History reviewed Allergies: Coded Allergies: *MDRO Multi-Drug Resistant Organism (Verified Adverse Reaction, Unknown, ) ESBL E. coli (urine) - 02/19/2015; ESBL K. pneumoniae (sputum) - 06/18/15, (urine) - 08/03/15, (sputum) - 08/03/15 MRSA PCR POSITIVE - 03/20/2015 Objective . Vital Signs Date Time Temp Pulse Resp B/P Pulse Ox O2 Delivery O2 Flow Rate FiO2 08/09/15 12:04 99 35 08/09/15 12:00 35 08/09/15 12:00 98.4 79 22 94/57 99 08/09/15 12:00 79 08/09/15 10:00 91 08/09/15 08:04 97 35 08/09/15 08:00 98.8 86 34 105/68 100 08/09/15 08:00 99 35 08/09/15 08:00 86 08/09/15 08:00 35 08/09/15 07:57 99 Ventilator 35 08/09/15 06:00 88 08/09/15 04:05 100 35 08/09/15 04:00 98.6 79 25 106/69 100 08/09/15 04:00 35 08/09/15 04:00 79 08/09/15 02:00 87 08/09/15 01:16 100 35 08/09/15 00:00 81 08/09/15 00:00 98.6 81 16 111/75 98 08/09/15 00:00 35 08/08/15 22:33 97 35 08/08/15 22:00 85 08/08/15 20:00 35 08/08/15 20:00 100 35 08/08/15 20:00 98.2 76 25 118/74 100 08/08/15 20:00 76 08/08/15 18:05 79 08/08/15 16:22 97 35 08/08/15 16:18 99.4 84 26 101/73 97 7/2/16 16:18 84 08/08/15 16:16 35 08/08/15 15:35 26 08/08/15 14:10 88 08/08/15 08/08/15 08/09/15 15:00 23:00 07:00 Intake Total 1125 ml 1311 ml 1028 ml Output Total 450 ml 250 ml 850 ml Balance 675 ml 1061 ml 178 ml IV Total 297 ml 139 ml 188 ml Tube Feeding 568 ml 912 ml 580 ml Other 260 ml 260 ml 260 ml Output Urine Total 450 ml 250 ml 850 ml # Bowel Movements 3 1 1 . Laboratory Tests Test 08/08/15 08/09/15 09:30 03:56 White Blood Count 11.3 TH/MM3 12.5 TH/MM3 Red Blood Count 3.51 MIL/MM3 3.32 MIL/MM3 Hemoglobin 10.0 GM/DL 9.5 GM/DL Hematocrit 31.1 % 29.6 % Mean Corpuscular Volume 88.4 FL 89.0 FL Mean Corpuscular Hemoglobin 28.4 PG 28.4 PG Mean Corpuscular Hemoglobin 32.1 % 32.0 % Concent Red Cell Distribution Width 13.1 % 13.5 % Platelet Count 251 TH/MM3 231 TH/MM3 Mean Platelet Volume 10.5 FL 10.3 FL Neutrophils (%) (Auto) 74.2 % 76.7 % Lymphocytes (%) (Auto) 11.7 % 10.0 % Monocytes (%) (Auto) 5.7 % 5.5 % Eosinophils (%) (Auto) 7.9 % 7.2 % Basophils (%) (Auto) 0.5 % 0.6 % Neutrophils # (Auto) 8.4 TH/MM3 9.6 TH/MM3 Lymphocytes # (Auto) 1.3 TH/MM3 1.2 TH/MM3 Monocytes # (Auto) 0.6 TH/MM3 0.7 TH/MM3 Eosinophils # (Auto) 0.9 TH/MM3 0.9 TH/MM3 Basophils # (Auto) 0.1 TH/MM3 0.1 TH/MM3 CBC Comment DIFF FINAL DIFF FINAL Differential Comment Laboratory Tests Test 08/08/15 08/09/15 09:30 03:56 Sodium Level 142 MEQ/L 142 MEQ/L Potassium Level 4.2 MEQ/L 4.1 MEQ/L Chloride Level 102 MEQ/L 101 MEQ/L Carbon Dioxide Level 36.7 MEQ/L 35.9 MEQ/L Anion Gap 3 MEQ/L 5 MEQ/L Blood Urea Nitrogen 14 MG/DL 14 MG/DL Creatinine 0.47 MG/DL 0.38 MG/DL Estimat Glomerular Filtration 188 ML/MIN 240 ML/MIN Rate Random Glucose 136 MG/DL 115 MG/DL Calcium Level 9.1 MG/DL 8.9 MG/DL Phosphorus Level 2.5 MG/DL Magnesium Level 1.9 MG/DL Imaging Last Impressions Chest X-Ray 08/07/15 0600 Signed Impressions: Service Date/Time: Friday, August 07, 2015 04:59 - CONCLUSION: No evidence of pneumothorax. No significant interval change. Ilir Agosto MD Tunnelled Chest Tube Removal 08/05/15 1100 Signed Impressions: Service Date/Time: Wednesday, August 05, 2015 11:00 - CONCLUSION: Uncomplicated chest tube removal. Blaine Jackson MD Chest Tube Change 07/31/15 0000 Signed Impressions: Service Date/Time: Friday, July 31, 2015 14:34 - CONCLUSION: Uncomplicated reposition of previously placed chest tube as above. Blaine Jackson MD Chest Tube Insertion 07/30/15 0000 Signed Impressions: Service Date/Time: July 14:50 - CONCLUSION: Uncomplicated chest tube placement as above. Blaine Jackson MD Catheter Change 07/27/15 0000 Signed Impressions: Service Date/Time: Monday, July 27, 2015 14:43 - CONCLUSION: Uncomplicated gastrostomy tube exchange as above. Blaine Jackson MD Chest CT 07/11/15 0000 Signed Impressions: Service Date/Time: Saturday, July 11, 2015 09:49 - CONCLUSION: Scattered patchy densities significantly improved from previous study. Tiny anterior right basilar pneumothorax. Right-sided chest tube in good position. Néstor Matamoros MD Head CT 06/18/151902 Signed Impressions: Service Date/Time: June 19:31 - CONCLUSION: Diffuse atrophy unchanged. No acute intracranial findings. Kush Briscoe MD Abdomen/Pelvis CT 06/18/151902 Signed Impressions: Service Date/Time: June 19:36 - CONCLUSION: 1. Chronic nonspecific urinary bladder wall thickening. Bladder collapsed with Valdez catheter in place. 2. Chronic bilateral mid to lower lung zone groundglass opacity. 3. Nonobstructing left renal calculus. 4. Distended rectum. Kush Briscoe MD Physical Exam GENERAL: Chronically ill-appearing, aphasic, not in acute distress. Cachectic SKIN: No generalized rashes, ecchymoses or lesions. Cool and dry. HEAD: Atraumatic. Normocephalic. EYES: Pupils equal round and reactive. ENT: Mucosae moist NECK: No lymphadenopathy. Supple, nontender, no meningeal signs.Trach site with no evidence of infection. CARDIOVASCULAR: No murmur appreciated. RESPIRATORY:Diffuse rhonchi. Breath sounds equal bilaterally with decrease in the bases. GASTROINTESTINAL: Abdomen soft, non-tender, nondistended. PEG tube site with no evidence of infection. MUSCULOSKELETAL: Increased tone in all extremities. Rigidity noted. NEUROLOGICAL: Opens eyes spontaneously. No verbal response does not follow commands. Withdrawls to pain Psych could not be assessed IV line sites with no evidence of infection. No lines present on admission. Assessment & Plan Remarks acute tracheobronchitis. ESBL Kleb pneumo and PSAE. Chest x-ray is negative, sputum purulent Acute on chronic respiratory failure was on trach and had to be placed on ventilator. Acute encephalopathy sepsis but has an underlying diagnosis of advanced dementia as well as advanced Parkinson's disease. Prior history of ESBL UTI Urine Cx first one from [facility] with ESBL: likely colonization. Funguria likely colonization. Not being treated and clinically improved. Prior history of MRSA colonization. Status post trach Status post gastrostomy tube with no evidence of infection. Stage II sacral decubitus ulcer present on admission. Recommendations cont meropenem to cover both ESBL and PSAE Follow cultures Follow clinically. rechk WBC Case discussed with Brittany Hughes MD Aug 09, 2015 13:57
[2015-08-09] MEDS: ENOXAPARIN SODIUM 40 MG/0.4 ML SYRINGE SQ SCH (21:17)
[2015-08-09] MEDS: OLANZapine 2.5 MG TAB GT SCH (21:18)
[2015-08-10] VITALS (19 sets, daily range): BP systolic 91–108; BP diastolic 55–77; PULSE 77–92; RESP 22–26; TEMP 96.8–98.8; O2SAT 96–100
[2015-08-10] MEDS: RESP: SODIUM CHLORIDE 3% 4 ML NEB NEB SCH ×4 (03:50→19:38)
[2015-08-10] MEDS: CHLORHEXIDINE GLUCONATE 2 % 1 PACK (2 CLOTHS) TOP SCH (04:00)
[2015-08-10] MEDS: CARBIDOPA/LEVODOPA 25 MG/100 MG TAB GT SCH ×2 (05:13→14:18)
[2015-08-10] MEDS: clonazePAM 1 MG TAB PO SCH ×2 (05:13→14:18)
[2015-08-10] MEDS: MEROPENEM INJ 1,000 MG in SODIUM CHLORIDE 0.9% INJ 100 ML IV SCH ×2 (05:13→14:17)
[2015-08-10] MEDS: FREE WATER G-TUBE SCH ×3 (05:13→22:00)
[2015-08-10] MEDS: REMOVE OLD PATCH TD SCH (08:00)
[2015-08-10] MEDS: fentaNYL 50 MCG/HR PATCH TD SCH (08:09)
[2015-08-10] MEDS: CHLORHEXIDINE 0.12% (ORAL KIT) 15 ML CUP MT SCH ×2 (08:09→20:47)
[2015-08-10] MEDS: LANSOPRAZOLE SOLUTAB 30 MG TAB NG SCH (08:09)
[2015-08-10] MEDS: GABAPENTIN 300 MG CAP G-TUBE SCH ×2 (08:09→21:19)
[2015-08-10] MEDS: SENNOSIDES SYRUP 8.8 MG/5 ML CUP PO SCH (08:09)
[2015-08-10] MEDS: LACTOBACILLUS ACIDOPHILUS TAB PO SCH ×3 (08:09→17:34)
[2015-08-10] MEDS: MIDODRINE 5 MG TAB G-TUBE SCH ×2 (08:09→21:19)
[2015-08-10] MEDS: QUEtiapine FUMARATE 25 MG TAB G-TUBE SCH ×2 (08:09→21:20)
[2015-08-10] MEDS: PARoxetine HCL 20 MG TAB G-TUBE SCH (08:09)
[2015-08-10] MEDS: ARTIFICIAL TEARS OPTH SOLN 15 ML BTL EACH EYE SCH ×3 (08:10→17:34)
[2015-08-10] MEDS: SODIUM CHLORIDE 0.9% FLUSH 5 ML FLUSH IVF SCH ×2 (08:10→20:48)
--- NOTE | 2015-08-10 08:27 | HHI.CCPN ---
Subjective Remarks/Hospital Course 06/17: Pt is a 54 yr man with multiple medial problems including Parkinson's disease, advanced dementia, hyponatremia, anxiety, pneumonia, GERD, cognitive disorder, and multidrug resistant UTI- ESBL02/19/15 , who resides in a [facility]. Pt by report was found by staff in [facility] to be less alert and having respiratory difficultly and fevers. Pt was brought to ED adn placed on ventilator. His workup was inclusive of labs, chest xray and ct head and abd/pelvis. WBC 16.4, +UTI, lactic acid 4, troponin ,0.02, BUN/ cre 18/ 0.76. CT head 06/18/15: diffuse atrophy unchanged. No acute intracranial findings ct abd/ pelvis with IV contrast: 06/18/15 Conclusion: 1. Chronic nonspecific urinary bladder wall thickening. Bladder collapsed with Putnam catheter in place. 2.Chronic bilateral mid to lower zone groundglass opacity. 3. Nonobstructing left renal calculus. 4. Distended rectum Pt admitted and fluid and abx ordered. 06/18: Drowsy, easily arousable. On mechanical ventilation via tracheostomy. Tachypneic. Resting tremor noted. 06/19: Drowsy, arousable. On mechanical ventilation via tracheostomy. 06/20: Drowsy, arousable. Remains on mechanical ventilation via tracheostomy. We'll repeat blood cultures, UA and urine cultures. Fluconazole IV added in view of yeast in urine. 07/06: Reconsulted as patient return to the ventilator on a right ventricular due to tachypnea. Low-grade temperatures. Tolerating tube feeding. Extremity encephalopathic demented patient with difficult neurological examination. 07/07: Status post chest tube placement by IR for right pneumothorax 07/06. Afebrile. Tolerating tube feeds. Positive BM. Currently tachypneic on the ventilator. Does not appear to be any acute distress. 07/08: Afebrile. Tolerating tube feeding. He is comfortable currently on CPAP trials 11/10. Positive BM. 07/09: Afebrile. Tolerating tube feeding. Appears comfortable on T bar. Positive BM. 07/10: Afebrile. Eyes are open. Remained on T piece overnight. Tolerating tube feeding. 07/11: MAXIMUM TEMPERATURE 100. Currently 98.6. Eyes are open. On ACV overnight secondary to "tachypnea and sweating". Switching back to PSV trials today. Goal is T piece during daytime, CPAP at night. 07/12: No acute events overnight. On PSV 15/5 -attempt TP up to 6 hours today. No pneumothorax on chest x-ray 07/13: Placed back on full ventilator support for tachypnea. Otherwise clinically unchanged. No fever today 07/14: Patient was on T piece yesterday evening, placed back on PSV overnight, patient mechanical ventilation this morning. Patient appears to be struggling with mechanical ventilation. Patient placed back on PSV with improvement 07/15: Patient placed back on mechanical ventilation last evening due to respiratory rate. It was indicated patient was tachypnea can the 40s. Patient on mechanical ventilation this time with respiration rate mid 20s. Chest tube still in place without any output, chest x-ray still indicating resolution of pneumothorax. 07/16: Patient seen and examined today. Patient placed back on mechanical ventilation overnight due to respiratory rate. Even on mechanical ventilation patient has respiration rate in the 30s. Patient afebrile, blood pressure stable. Continue vent weaning 07/17: Patient seen and examined. Currently afebrile. Currently on CPAP 15/5 @ 40%. Patient is awake with open mouth resting in bed in no apparent acute distress. Tolerating tube feeding. 2 bowel movements. 07/18: No neurological changes. Afebrile. 2 bowel moments. Tolerating tube feeding. We'll attempt TP trials today. On CPAP since 07/15 07/19 No events overnight. On CPAP with PS: 10, PEEP: 5 and FIO2 35%. Afebrile. On no sedation. 07/20 No events overnight. Tolerating CPAP. Afebrile. 07/21: Remains on CPAP. Attempt T piece trial today. Afebrile. One bowel movement. Tolerating tube feeding. 07/22: Afebrile. Positive BM. Tolerating tube feeding. Noted switched tracheostomy to #6 Shiley cuffed fenestrated. Neurologically unchanged 07/23: Afebrile. Positive BM. Tolerating tube feeding. Questionable leak in exchange trach. Place back on a rate/ACV overnight. Insufflated seems to be doing better at the present time. Will check chest x-ray. Possible he might need #6 XLT versus replacement of chronic #8 Shiley. 07/24: Tolerating TP today, RR in low 30s patient appears comfortable. No acute events overnight 07/25: Remains off the ventilator more than 36 hours now. Intermittently tachypneic probably breathing. Chest x-ray was clear yesterday. No acute events reported overnight. PEG not functioning per RN 08/02: Patient was transferred back to critical care service due to continuing ventilator management, tachypnea. Patient clinical status with no significant change. Patient with low-grade fever 100.2, 08/03: Patient seen and examined today. No significant change in clinical status. Patient still with chronic tachypnea. Patient afebrile now. 08/04: Patient seen and examined today. No change in clinical status. Patient still continues to have chronic tachypnea. Patient afebrile. Continue vent weaning 08/05: Patient seen and examined today. Patient had chest tube removed yesterday , chest x-ray shows redevelopment of pneumothorax. Chest tube replaced. Otherwise, patient still on ventilator with tachypnea. Afebrile 08/06: Patient seen and examined today. Patient went to have chest tube placed, repeat chest x-ray did not indicate any pneumothorax. No overnight events. We' ll need to pursue LTAC placement 08/07 No events overnight. On ventilator via trach. Afebrile. 08/08 Patient tolerated CPAP x4 hrs yesterday. Afebrile. On no sedation. 08/09 No events overnight. Tolerated CPAP x 12 hrs yesterday. Afebrile. Objective - Vital Signs Date Time Temp Pulse Resp B/P Pulse Ox O2 Delivery O2 Flow Rate FiO2 08/10/15 06:00 79 08/10/15 04:00 98.6 22 91/67 100 08/10/15 04:00 35 08/09/15 07:57 Ventilator Intake and Output 08/09/15 08/09/15 08/10/15 08:00 16:00 00:00 Intake Total 1028 ml 1052 ml 869 ml Output Total 850 ml 1500 ml 400 ml Balance 178 ml -448 ml 469 ml Result Diagram: 08/09/15 0356 08/09/15 0356 Other Results Imaging Last Impressions Chest X-Ray 08/07/15 0600 Signed Impressions: Service Date/Time: Friday, August 07, 2015 04:59 - CONCLUSION: No evidence of pneumothorax. No significant interval change. Ilir Agosto MD Tunnelled Chest Tube Removal 08/05/15 1100 Signed Impressions: Service Date/Time: Wednesday, August 05, 2015 11:00 - CONCLUSION: Uncomplicated chest tube removal. Blaine Jackson MD Chest Tube Change 07/31/15 0000 Signed Impressions: Service Date/Time: Friday, July 31, 2015 14:34 - CONCLUSION: Uncomplicated reposition of previously placed chest tube as above. Blaine Jackson MD Chest Tube Insertion 07/30/15 0000 Signed Impressions: Service Date/Time: July 14:50 - CONCLUSION: Uncomplicated chest tube placement as above. Blaine Jackson MD Catheter Change 07/27/15 0000 Signed Impressions: Service Date/Time: Monday, July 27, 2015 14:43 - CONCLUSION: Uncomplicated gastrostomy tube exchange as above. Blaine Jackson MD Chest CT 07/11/15 0000 Signed Impressions: Service Date/Time: Saturday, July 11, 2015 09:49 - CONCLUSION: Scattered patchy densities significantly improved from previous study. Tiny anterior right basilar pneumothorax. Right-sided chest tube in good position. Néstor Matamoros MD Head CT 06/18/151902 Signed Impressions: Service Date/Time: June 19:31 - CONCLUSION: Diffuse atrophy unchanged. No acute intracranial findings. Kush Briscoe MD Abdomen/Pelvis CT 06/18/151902 Signed Impressions: Service Date/Time: June 19:36 - CONCLUSION: 1. Chronic nonspecific urinary bladder wall thickening. Bladder collapsed with Putnam catheter in place. 2. Chronic bilateral mid to lower lung zone groundglass opacity. 3. Nonobstructing left renal calculus. 4. Distended rectum. Kush Briscoe MD Objective Remarks GENERAL: 54-year-old male, cachectic, currently on ventilator HEENT: NC/AT. PERRL. MMM dry and pink. Oropharynx without erythema or thrush NECK: No JVD. status post tracheostomy clean/dry and intact CARDIAC: RRR. S1/S2. No S4. No murmurs, clicks gallops or rubs. LUNGS: Clear to auscultation bilaterally. No wheeze, rhonchi or rales. No use of accessory muscles. ABDOMEN: S/NT/ND. Bowel sounds heard in all 4 quadrants. No organomegaly or masses. No guarding/rigidity/rebound. EXTREMITIES: No significant peripheral edema, pulses are equal bilaterally. NEUROLOGY: Patient with significant contractures of the right lower extremity, upper extremities. Eyes open spontaneously. Muscle wasting face, bilateral upper and lower extremities Procedures 07/26- PEG replacement 07/29- right pigtail catheter placement for new pneumothorax 07/29 Date of Insertion: Jul 30, 2015 A/P Assessment and Plan Neuro/Psych: Toxic metabolic Encephalopathy - chronic Parkinson's disease Cognitive disorder/Underlying dementia Depression CT head 06/18/15: - diffuse atrophy unchanged. No acute intracranial findings Continue Sinemet 25/100 3 times a day via PEG, Seroquel 50 mg twice a day, olanzapine 5 mg a night, Klonopin 2 mg every 8 hours, Paxil 20 daily and Neurontin 300 mg twice a day. These medications have been slowly titrated up since admission Continue Roxanol 5 mg every 4 hours when necessary pain and fentanyl patch 50 g every 3 days for pain management. Resp: Acute on chronic respiratory failure Chronic trach, Pneumonia Right pneumothorax status post pigtail catheter Continue with vent support keep sat >92%. Pulmonary Dr. Restrepo following CPAP trials/TP's as steven. Pulm toilet, trach care. Exchanged from a #8 fenestrated Shiley cuffed tracheostomy to a #6 Shiley fenestrated cuffed on 07/22. Duo nebs 4 times a day and when necessary albuterol. Status post chest tube replacement by interventional radiology on 07/30, chest tube removed 08/04, repeat films do not indicate any pneumothorax Cardiac History of orthostasis History of CAD, HLP, Hypertension Continue Midodrine 5 mg twice a day Monitor HR and BP keep MAP>65mmHg GI: Malnutrition/protein calorie - moderate Status post PEG Hemorrhoids Gastroesophageal reflux disease - Tolerating Jevity 1.5 at 60 cc an hour. - Currently Prevacid 30 mg per PEG tube daily for GERD - Current Colace/senna for bowel regimen. /metabolic: Nonobstructing left renal calculus Hypernatremia - resolved - Monitor renal function, I/O's. electrolytes replacement per protocol. - Diurese with Bumex 1mg x1, on Free H20 200ml Q8 - Putnam placed 07/29 ID: Candiduria ESBL positive Klebsiella/Pseudomonas pneumonia MRSA colonization sepsis Continue with abx per ID ( Merrem)monitor for signs of infections ( Fever, WBC) - Patient recultured Urine culture: 08/02 Klebsiella pneumonia ESBL positive Urine culture: 08/02 Heena Tropicalis, C. Glabrata Sputum culture: 08/02 Pseudomonas, Klebsiella pneumonia ESBL positive Blood culture: 08/02 yeast species, Heena glabrata, Heena tropicalis - History of Multidrug resistant UTI- ESBL 02/19/15 , MRSA + 03/20/15 - Heena glabrata in urine 03/19/15 - Rechecked blood, sputum and urine cultures 07/06 no growth - 06/17 - blood cultures 2 - CONS/staph epi - 06/17 - sputum - ESBL positive Klebsiella/Pseudomonas Treated 15 days with tobramycin aerosols twice a day. - 06/17 - urine - C. glabrata/tropicalis - treated with Diflucan Endo: --SSI if needed for glycemic control Heme Anemia - Monitor CBC MSK Bilateral lower extremity Contractures Stage II DU - Wound care evaluate and treat - Continue physical therapy Prophylaxis - GI - Prevacid - DVT - SCDs/Lovenox CCT 30 mins Antonio Carr MD Aug 10, 2015 08:27
[2015-08-10] MEDS ORDERED: BUMETANIDE INJ 1 MG/4 ML VIAL IV PUSH ONE (08:30)
[2015-08-10 08:35] LABS: AUTOMATED NEUTROPHIL # 5.9 TH/MM3 (1.8-7.7); BASOPHIL # 0.1 TH/MM3 (0-0.2); BASOPHIL % 0.6 % (0.0-2.0); EOSINOPHIL # 0.9 TH/MM3 (0-0.4); EOSINOPHIL % 10.4 % (0.0-4.0); HEMATOCRIT 29.3 % (39.0-51.0); HEMO FLAGS DIFF FINAL; LYMPHOCYTE # 1.5 TH/MM3 (1.0-4.8); MEAN CELL VOLUME 88.5 FL (80.0-100.0); MEAN CORPUSCULAR HEMOGLOBIN 28.8 PG (27.0-34.0); MEAN CORPUSCULAR HGB CONC 32.6 % (32.0-36.0); MONO % 6.1 % (0.0-8.0); NEUT % 65.9 % (16.0-70.0); PLATELET COUNT 226 TH/MM3 (150-450); RED BLOOD COUNT 3.31 MIL/MM3 (4.50-5.90); RED CELL DISTRIBUTION WIDTH 13.4 % (11.6-17.2)
[2015-08-10] MEDS: RESP: ALBUTEROL 2.5 MG/IPRATROPIUM 0.5 MG NEB (SCH) NEB ×3 (08:53→19:38)
[2015-08-10 09:03] LABS: BICARBONATE 40.7 MEQ/L (21.0-32.0); POTASSIUM 4.2 MEQ/L (3.5-5.1)
--- NOTE | 2015-08-10 12:38 | HHI.PR ---
Subjective Remarks On T collar, FIo2 35 % . tachypneic . no pneumothorax. Output OK. Lethargic. Objective Vital Signs Date Time Temp Pulse Resp B/P Pulse Ox O2 Delivery O2 Flow Rate FiO2 08/10/15 12:00 79 08/10/15 12:00 96.8 78 24 108/77 96 08/10/15 12:00 35 08/10/15 10:52 99 T-piece 40 08/10/15 10:52 40 08/10/15 10:00 78 08/10/15 08:54 35 08/10/15 08:54 99 35 08/10/15 08:00 79 08/10/15 08:00 35 08/10/15 08:00 98.7 79 22 99/65 99 08/10/15 06:00 79 08/10/15 04:00 80 08/10/15 04:00 98.6 80 22 91/67 100 08/10/15 04:00 35 08/10/15 03:50 100 35 08/10/15 02:00 92 08/10/15 01:40 98 35 08/10/15 00:00 35 08/10/15 00:00 91 08/10/15 00:00 98.8 91 25 95/68 99 08/09/15 22:29 98 35 08/09/15 22:00 88 08/09/15 21:23 25 08/09/15 20:00 81 08/09/15 20:00 35 08/09/15 20:00 98.5 81 28 96/65 99 08/09/15 19:40 100 35 08/09/15 18:00 80 08/09/15 17:16 99 35 08/09/15 16:00 98.1 80 25 104/57 99 08/09/15 16:00 80 08/09/15 16:00 35 08/09/15 14:00 80 I/O 08/09/15 08/09/15 08/09/15 08/10/15 08/10/15 08/10/15 07:00 15:00 23:00 07:00 15:00 23:00 Intake Total 1028 ml 1052 ml 869 ml 937 ml Output Total 850 ml 1500 ml 400 ml 325 ml Balance 178 ml -448 ml 469 ml 612 ml IV Total 188 ml 238 ml 109 ml 177 ml Tube Feeding 580 ml 554 ml 500 ml 500 ml Other 260 ml 260 ml 260 ml 260 ml Output Urine Total 850 ml 1500 ml 400 ml 325 ml # Bowel Movements 1 0 1 1 Result Diagram: 08/10/1563908/10/15639 Objective Remarks This is a well-nourished male who in on the vent with a trach tube in place. HEENT: Pupils are equal and reactive to light. CHEST: Bilateral wheeze with occ basal crackles. CARDIOVASCULAR: S1 and S2 is normal. ABDOMEN: Soft, nondistended. He has a PEG tube in place. EXTREMITIES: No edema. NEURO: Lethargic and Does not move his extremities . Assessment and Plan Assessment and Plan IMPRESSION 1. Respiratory failure, ventilator dependent 2. Sepsis 3. UTI 4. Tracheobronchitis 5. Parkinson's disease 6. Dementia. 7. Severe Deconditioning. 8. Left Pneumothorax. Recurrent Plan : 1. CPAP at HS PSV 15,FIO2 35 %. 2. Nebs qid , duoneb. 3. Antibiotics per ID. 4. T Bar 40 % during the day. 5. Chest X ray in am. 6. Ativan .5 mg q6h prn. 7. Tube feeds at 60 CC 8. Lovenox 40 Mg S/Q daily. Darren Kiser MD Aug 10, 2015 12:38 Darren Kiser MD Aug 10, 2015 12:38
[2015-08-10] MEDS: MORPHINE SULFATE 4 MG/ML INJ IV PUSH PRN ×2 (14:18→21:19)
--- NOTE | 2015-08-10 18:10 | HHI.IDPN ---
Subjective Subjective Remarks ID Xcover for Dr Moss Pt tolerating T piece afebrile diarrhea 5-6 BMs /d off pressors WBC going down to nl diarrhea subsiding Antibiotics meropenem Lines Line sites with no e/o infection Past Medical History reviewed Allergies: Coded Allergies: *MDRO Multi-Drug Resistant Organism (Verified Adverse Reaction, Unknown, ) ESBL E. coli (urine) - 02/19/2015; ESBL K. pneumoniae (sputum) - 06/18/15, (urine) - 08/03/15, (sputum) - 08/03/15 MRSA PCR POSITIVE - 03/20/2015 Objective . Vital Signs Date Time Temp Pulse Resp B/P Pulse Ox O2 Delivery O2 Flow Rate FiO2 08/10/15 14:00 77 08/10/15 12:00 79 08/10/15 12:00 96.8 78 24 108/77 96 08/10/15 12:00 35 08/10/15 10:52 99 T-piece 40 08/10/15 10:52 40 08/10/15 10:00 78 08/10/15 08:54 35 08/10/15 08:54 99 35 08/10/15 08:00 79 08/10/15 08:00 35 08/10/15 08:00 98.7 79 22 99/65 99 08/10/15 06:00 79 08/10/15 04:00 80 08/10/15 04:00 98.6 80 22 91/67 100 08/10/15 04:00 35 08/10/15 03:50 100 35 08/10/15 02:00 92 08/10/15 01:40 98 35 08/10/15 00:00 35 08/10/15 00:00 91 08/10/15 00:00 98.8 91 25 95/68 99 08/09/15 22:29 98 35 08/09/15 22:00 88 08/09/15 21:23 25 08/09/15 20:00 81 08/09/15 20:00 35 08/09/15 20:00 98.5 81 28 96/65 99 08/09/15 19:40 100 35 08/09/15 08/09/15 08/10/15 15:00 23:00 07:00 Intake Total 1052 ml 869 ml 937 ml Output Total 1500 ml 400 ml 325 ml Balance -448 ml 469 ml 612 ml IV Total 238 ml 109 ml 177 ml Tube Feeding 554 ml 500 ml 500 ml Other 260 ml 260 ml 260 ml Output Urine Total 1500 ml 400 ml 325 ml # Bowel Movements 0 1 1 . Laboratory Tests Test 08/09/15 08/10/15 03:56 06:40 White Blood Count 12.5 TH/MM3 9.0 TH/MM3 Red Blood Count 3.32 MIL/MM3 3.31 MIL/MM3 Hemoglobin 9.5 GM/DL 9.5 GM/DL Hematocrit 29.6 % 29.3 % Mean Corpuscular Volume 89.0 FL 88.5 FL Mean Corpuscular Hemoglobin 28.4 PG 28.8 PG Mean Corpuscular Hemoglobin 32.0 % 32.6 % Concent Red Cell Distribution Width 13.5 % 13.4 % Platelet Count 231 TH/MM3 226 TH/MM3 Mean Platelet Volume 10.3 FL 10.1 FL Neutrophils (%) (Auto) 76.7 % 65.9 % Lymphocytes (%) (Auto) 10.0 % 17.0 % Monocytes (%) (Auto) 5.5 % 6.1 % Eosinophils (%) (Auto) 7.2 % 10.4 % Basophils (%) (Auto) 0.6 % 0.6 % Neutrophils # (Auto) 9.6 TH/MM3 5.9 TH/MM3 Lymphocytes # (Auto) 1.2 TH/MM3 1.5 TH/MM3 Monocytes # (Auto) 0.7 TH/MM3 0.6 TH/MM3 Eosinophils # (Auto) 0.9 TH/MM3 0.9 TH/MM3 Basophils # (Auto) 0.1 TH/MM3 0.1 TH/MM3 CBC Comment DIFF FINAL DIFF FINAL Differential Comment Laboratory Tests Test 08/09/15 08/10/15 03:56 06:40 Sodium Level 142 MEQ/L 142 MEQ/L Potassium Level 4.1 MEQ/L 4.2 MEQ/L Chloride Level 101 MEQ/L 100 MEQ/L Carbon Dioxide Level 35.9 MEQ/L 40.7 MEQ/L Anion Gap 5 MEQ/L 1 MEQ/L Blood Urea Nitrogen 14 MG/DL 16 MG/DL Creatinine 0.38 MG/DL 0.36 MG/DL Estimat Glomerular Filtration 240 ML/MIN 255 ML/MIN Rate Random Glucose 115 MG/DL 111 MG/DL Calcium Level 8.9 MG/DL 9.0 MG/DL Imaging Last Impressions Chest X-Ray 08/07/15 0600 Signed Impressions: Service Date/Time: Friday, August 07, 2015 04:59 - CONCLUSION: No evidence of pneumothorax. No significant interval change. Ilir Agosto MD Tunnelled Chest Tube Removal 08/05/15 1100 Signed Impressions: Service Date/Time: Wednesday, August 05, 2015 11:00 - CONCLUSION: Uncomplicated chest tube removal. Blaine Jackson MD Chest Tube Change 07/31/15 0000 Signed Impressions: Service Date/Time: Friday, July 31, 2015 14:34 - CONCLUSION: Uncomplicated reposition of previously placed chest tube as above. Blaine Jackson MD Chest Tube Insertion 07/30/15 0000 Signed Impressions: Service Date/Time: July 14:50 - CONCLUSION: Uncomplicated chest tube placement as above. Blaine Jackson MD Catheter Change 07/27/15 0000 Signed Impressions: Service Date/Time: Monday, July 27, 2015 14:43 - CONCLUSION: Uncomplicated gastrostomy tube exchange as above. Blaine Jackson MD Chest CT 07/11/15 0000 Signed Impressions: Service Date/Time: Saturday, July 11, 2015 09:49 - CONCLUSION: Scattered patchy densities significantly improved from previous study. Tiny anterior right basilar pneumothorax. Right-sided chest tube in good position. Néstor Matamoros MD Head CT 06/18/151902 Signed Impressions: Service Date/Time: June 19:31 - CONCLUSION: Diffuse atrophy unchanged. No acute intracranial findings. Kush Briscoe MD Abdomen/Pelvis CT 06/18/151902 Signed Impressions: Service Date/Time: June 19:36 - CONCLUSION: 1. Chronic nonspecific urinary bladder wall thickening. Bladder collapsed with Valdez catheter in place. 2. Chronic bilateral mid to lower lung zone groundglass opacity. 3. Nonobstructing left renal calculus. 4. Distended rectum. Kush Briscoe MD Physical Exam GENERAL: Chronically ill-appearing, aphasic, not in acute distress. Cachectic SKIN: No generalized rashes, ecchymoses or lesions. Cool and dry. HEAD: Atraumatic. Normocephalic. EYES: Pupils equal round and reactive. ENT: Mucosae moist NECK: No lymphadenopathy. Supple, nontender, no meningeal signs.Trach site with no evidence of infection. CARDIOVASCULAR: No murmur appreciated. RESPIRATORY:Diffuse rhonchi. Breath sounds equal bilaterally with decrease in the bases. GASTROINTESTINAL: Abdomen soft, non-tender, mildly distended. PEG tube site with no evidence of infection. MUSCULOSKELETAL: Increased tone in all extremities. Rigidity noted. NEUROLOGICAL: Opens eyes spontaneously. No verbal response does not follow commands. Withdrawls to pain IV line sites with no evidence of infection. No lines present on admission. Assessment & Plan Remarks acute tracheobronchitis. ESBL Kleb pneumo and PSAE. Chest x-ray is negative, sputum purulent Acute on chronic respiratory failure was on trach and had to be placed on ventilator. Acute encephalopathy sepsis but has an underlying diagnosis of advanced dementia as well as advanced Parkinson's disease. Prior history of ESBL UTI Urine Cx first one from [facility] with ESBL: likely colonization. Funguria likely colonization. Not being treated and clinically improved. Prior history of MRSA colonization. Status post trach Status post gastrostomy tube with no evidence of infection. Stage II sacral decubitus ulcer present on admission. Recommendations cont meropenem to cover both ESBL and PSAE x 10-14 days Follow cultures Follow clinically. Case discussed with Brittany Hughes MD Aug 10, 2015 18:10
[2015-08-10] MEDS: OLANZapine 2.5 MG TAB GT SCH (21:20)
[2015-08-11] VITALS (20 sets, daily range): BP systolic 94–108; BP diastolic 62–69; PULSE 66–97; RESP 15–26; TEMP 96.8–100.5; O2SAT 93–100
[2015-08-11] MEDS: clonazePAM 1 MG TAB PO SCH ×4 (00:21→22:00)
[2015-08-11] MEDS: ENOXAPARIN SODIUM 40 MG/0.4 ML SYRINGE SQ SCH ×2 (00:21→22:00)
[2015-08-11] MEDS: MEROPENEM INJ 1,000 MG in SODIUM CHLORIDE 0.9% INJ 100 ML IV SCH ×4 (00:21→22:00)
[2015-08-11] MEDS: CARBIDOPA/LEVODOPA 25 MG/100 MG TAB GT SCH ×4 (00:21→22:00)
[2015-08-11] MEDS: RESP: SODIUM CHLORIDE 3% 4 ML NEB NEB SCH ×4 (03:18→20:26)
[2015-08-11] MEDS: RESP: ALBUTEROL 2.5 MG/IPRATROPIUM 0.5 MG NEB (SCH) NEB ×4 (03:18→20:26)
[2015-08-11] MEDS: CHLORHEXIDINE GLUCONATE 2 % 1 PACK (2 CLOTHS) TOP SCH (04:00)
[2015-08-11 04:38] LABS: AUTOMATED NEUTROPHIL # 5.9 TH/MM3 (1.8-7.7); BASOPHIL # 0.1 TH/MM3 (0-0.2); BASOPHIL % 0.6 % (0.0-2.0); EOSINOPHIL # 0.8 TH/MM3 (0-0.4); EOSINOPHIL % 9.3 % (0.0-4.0); HEMATOCRIT 29.5 % (39.0-51.0); HEMO FLAGS DIFF FINAL; LYMPH % 17.8 % (9.0-44.0); LYMPHOCYTE # 1.6 TH/MM3 (1.0-4.8); MEAN CELL VOLUME 88.9 FL (80.0-100.0); MEAN CORPUSCULAR HGB CONC 31.5 % (32.0-36.0); MONO % 6.1 % (0.0-8.0); NEUT % 66.2 % (16.0-70.0); PLATELET COUNT 197 TH/MM3 (150-450); RED BLOOD COUNT 3.32 MIL/MM3 (4.50-5.90); RED CELL DISTRIBUTION WIDTH 13.5 % (11.6-17.2); WHITE BLOOD COUNT 8.9 TH/MM3 (4.0-11.0)
[2015-08-11 04:45] LABS: BICARBONATE 40.8 MEQ/L (21.0-32.0); POTASSIUM 4.2 MEQ/L (3.5-5.1)
[2015-08-11] MEDS: MORPHINE SULFATE 4 MG/ML INJ IV PUSH PRN ×2 (05:24→10:13)
[2015-08-11] MEDS: FREE WATER G-TUBE SCH (06:00)
[2015-08-11] MEDS: GABAPENTIN 300 MG CAP G-TUBE SCH ×2 (08:26→21:00)
[2015-08-11] MEDS: LANSOPRAZOLE SOLUTAB 30 MG TAB NG SCH (08:26)
[2015-08-11] MEDS: SENNOSIDES SYRUP 8.8 MG/5 ML CUP PO SCH (08:26)
[2015-08-11] MEDS: MIDODRINE 5 MG TAB G-TUBE SCH ×2 (08:26→21:00)
[2015-08-11] MEDS: PARoxetine HCL 20 MG TAB G-TUBE SCH (08:26)
[2015-08-11] MEDS: LACTOBACILLUS ACIDOPHILUS TAB PO SCH ×3 (08:26→16:55)
[2015-08-11] MEDS: QUEtiapine FUMARATE 25 MG TAB G-TUBE SCH ×2 (08:26→21:00)
[2015-08-11] MEDS: ARTIFICIAL TEARS OPTH SOLN 15 ML BTL EACH EYE SCH ×3 (08:26→16:56)
[2015-08-11] MEDS: SODIUM CHLORIDE 0.9% FLUSH 5 ML FLUSH IVF SCH ×2 (08:26→20:45)
[2015-08-11] MEDS: CHLORHEXIDINE 0.12% (ORAL KIT) 15 ML CUP MT SCH ×2 (08:27→20:45)
--- NOTE | 2015-08-11 08:51 | HHI.CCPN ---
Subjective Remarks/Hospital Course 06/17: Pt is a 54 yr man with multiple medial problems including Parkinson's disease, advanced dementia, hyponatremia, anxiety, pneumonia, GERD, cognitive disorder, and multidrug resistant UTI- ESBL02/19/15 , who resides in a custodial. Pt by report was found by staff in custodial to be less alert and having respiratory difficultly and fevers. Pt was brought to ED adn placed on ventilator. His workup was inclusive of labs, chest xray and ct head and abd/pelvis. WBC 16.4, +UTI, lactic acid 4, troponin ,0.02, BUN/ cre 18/ 0.76. CT head 06/18/15: diffuse atrophy unchanged. No acute intracranial findings ct abd/ pelvis with IV contrast: 06/18/15 Conclusion: 1. Chronic nonspecific urinary bladder wall thickening. Bladder collapsed with Putnam catheter in place. 2.Chronic bilateral mid to lower zone groundglass opacity. 3. Nonobstructing left renal calculus. 4. Distended rectum Pt admitted and fluid and abx ordered. 06/18: Drowsy, easily arousable. On mechanical ventilation via tracheostomy. Tachypneic. Resting tremor noted. 06/19: Drowsy, arousable. On mechanical ventilation via tracheostomy. 06/20: Drowsy, arousable. Remains on mechanical ventilation via tracheostomy. We'll repeat blood cultures, UA and urine cultures. Fluconazole IV added in view of yeast in urine. 07/06: Reconsulted as patient return to the ventilator on a right ventricular due to tachypnea. Low-grade temperatures. Tolerating tube feeding. Extremity encephalopathic demented patient with difficult neurological examination. 07/07: Status post chest tube placement by IR for right pneumothorax 07/06. Afebrile. Tolerating tube feeds. Positive BM. Currently tachypneic on the ventilator. Does not appear to be any acute distress. 07/08: Afebrile. Tolerating tube feeding. He is comfortable currently on CPAP trials 11/10. Positive BM. 07/09: Afebrile. Tolerating tube feeding. Appears comfortable on T bar. Positive BM. 07/10: Afebrile. Eyes are open. Remained on T piece overnight. Tolerating tube feeding. 07/11: MAXIMUM TEMPERATURE 100. Currently 98.6. Eyes are open. On ACV overnight secondary to "tachypnea and sweating". Switching back to PSV trials today. Goal is T piece during daytime, CPAP at night. 07/12: No acute events overnight. On PSV 15/5 -attempt TP up to 6 hours today. No pneumothorax on chest x-ray 07/13: Placed back on full ventilator support for tachypnea. Otherwise clinically unchanged. No fever today 07/14: Patient was on T piece yesterday evening, placed back on PSV overnight, patient mechanical ventilation this morning. Patient appears to be struggling with mechanical ventilation. Patient placed back on PSV with improvement 07/15: Patient placed back on mechanical ventilation last evening due to respiratory rate. It was indicated patient was tachypnea can the 40s. Patient on mechanical ventilation this time with respiration rate mid 20s. Chest tube still in place without any output, chest x-ray still indicating resolution of pneumothorax. 07/16: Patient seen and examined today. Patient placed back on mechanical ventilation overnight due to respiratory rate. Even on mechanical ventilation patient has respiration rate in the 30s. Patient afebrile, blood pressure stable. Continue vent weaning 07/17: Patient seen and examined. Currently afebrile. Currently on CPAP 15/5 @ 40%. Patient is awake with open mouth resting in bed in no apparent acute distress. Tolerating tube feeding. 2 bowel movements. 07/18: No neurological changes. Afebrile. 2 bowel moments. Tolerating tube feeding. We'll attempt TP trials today. On CPAP since 07/15 07/19 No events overnight. On CPAP with PS: 10, PEEP: 5 and FIO2 35%. Afebrile. On no sedation. 07/20 No events overnight. Tolerating CPAP. Afebrile. 07/21: Remains on CPAP. Attempt T piece trial today. Afebrile. One bowel movement. Tolerating tube feeding. 07/22: Afebrile. Positive BM. Tolerating tube feeding. Noted switched tracheostomy to #6 Shiley cuffed fenestrated. Neurologically unchanged 07/23: Afebrile. Positive BM. Tolerating tube feeding. Questionable leak in exchange trach. Place back on a rate/ACV overnight. Insufflated seems to be doing better at the present time. Will check chest x-ray. Possible he might need #6 XLT versus replacement of chronic #8 Shiley. 07/24: Tolerating TP today, RR in low 30s patient appears comfortable. No acute events overnight 07/25: Remains off the ventilator more than 36 hours now. Intermittently tachypneic probably breathing. Chest x-ray was clear yesterday. No acute events reported overnight. PEG not functioning per RN 08/02: Patient was transferred back to critical care service due to continuing ventilator management, tachypnea. Patient clinical status with no significant change. Patient with low-grade fever 100.2, 08/03: Patient seen and examined today. No significant change in clinical status. Patient still with chronic tachypnea. Patient afebrile now. 08/04: Patient seen and examined today. No change in clinical status. Patient still continues to have chronic tachypnea. Patient afebrile. Continue vent weaning 08/05: Patient seen and examined today. Patient had chest tube removed yesterday , chest x-ray shows redevelopment of pneumothorax. Chest tube replaced. Otherwise, patient still on ventilator with tachypnea. Afebrile 08/06: Patient seen and examined today. Patient went to have chest tube placed, repeat chest x-ray did not indicate any pneumothorax. No overnight events. We' ll need to pursue LTAC placement 08/07 No events overnight. On ventilator via trach. Afebrile. 08/08 Patient tolerated CPAP x4 hrs yesterday. Afebrile. On no sedation. 08/09 No events overnight. Tolerated CPAP x 12 hrs yesterday. Afebrile. 08/10 Patient tolerated TP's x 12 hrs yesterday back on ACV overnight. Objective - Vital Signs Date Time Temp Pulse Resp B/P Pulse Ox O2 Delivery O2 Flow Rate FiO2 08/11/15 07:58 35 08/11/15 07:58 98 08/11/15 06:00 69 08/11/15 04:00 97.5 16 97/62 08/10/15 23:30 Mechanical Ventilator Intake and Output 08/10/15 08/10/15 08/11/15 08:00 16:00 00:00 Intake Total 937 ml 1152 ml 906 ml Output Total 325 ml 1550 ml 400.0 ml Balance 612 ml -398 ml 506.0 ml Result Diagram: 08/11/15 0345 08/11/15 0346 Other Results Laboratory Tests Test 08/11/15 08/11/15 03:45 03:46 White Blood Count 8.9 TH/MM3 Red Blood Count 3.32 MIL/MM3 Hemoglobin 9.3 GM/DL Hematocrit 29.5 % Mean Corpuscular Volume 88.9 FL Mean Corpuscular Hemoglobin 28.0 PG Mean Corpuscular Hemoglobin 31.5 % Concent Red Cell Distribution Width 13.5 % Platelet Count 197 TH/MM3 Mean Platelet Volume 9.9 FL Neutrophils (%) (Auto) 66.2 % Lymphocytes (%) (Auto) 17.8 % Monocytes (%) (Auto) 6.1 % Eosinophils (%) (Auto) 9.3 % Basophils (%) (Auto) 0.6 % Neutrophils # (Auto) 5.9 TH/MM3 Lymphocytes # (Auto) 1.6 TH/MM3 Monocytes # (Auto) 0.5 TH/MM3 Eosinophils # (Auto) 0.8 TH/MM3 Basophils # (Auto) 0.1 TH/MM3 CBC Comment DIFF FINAL Differential Comment Sodium Level 141 MEQ/L Potassium Level 4.2 MEQ/L Chloride Level 97 MEQ/L Carbon Dioxide Level 40.8 MEQ/L Anion Gap 3 MEQ/L Blood Urea Nitrogen 17 MG/DL Creatinine 0.33 MG/DL Estimat Glomerular Filtration 282 ML/MIN Rate Random Glucose 132 MG/DL Calcium Level 9.1 MG/DL Magnesium Level 2.0 MG/DL Imaging Last Impressions Chest X-Ray 08/07/15 0600 Signed Impressions: Service Date/Time: Friday, August 07, 2015 04:59 - CONCLUSION: No evidence of pneumothorax. No significant interval change. Ilir Agosto MD Tunnelled Chest Tube Removal 08/05/15 1100 Signed Impressions: Service Date/Time: Wednesday, August 05, 2015 11:00 - CONCLUSION: Uncomplicated chest tube removal. Blaine Jackson MD Chest Tube Change 07/31/15 0000 Signed Impressions: Service Date/Time: Friday, July 31, 2015 14:34 - CONCLUSION: Uncomplicated reposition of previously placed chest tube as above. Blaine Jackson MD Chest Tube Insertion 07/30/15 0000 Signed Impressions: Service Date/Time: July 14:50 - CONCLUSION: Uncomplicated chest tube placement as above. Blaine Jackson MD Catheter Change 07/27/15 0000 Signed Impressions: Service Date/Time: Monday, July 27, 2015 14:43 - CONCLUSION: Uncomplicated gastrostomy tube exchange as above. Blaine Jackson MD Chest CT 07/11/15 0000 Signed Impressions: Service Date/Time: Saturday, July 11, 2015 09:49 - CONCLUSION: Scattered patchy densities significantly improved from previous study. Tiny anterior right basilar pneumothorax. Right-sided chest tube in good position. Néstor Matamoros MD Head CT 06/18/151902 Signed Impressions: Service Date/Time: June 19:31 - CONCLUSION: Diffuse atrophy unchanged. No acute intracranial findings. Kush Briscoe MD Abdomen/Pelvis CT 06/18/151902 Signed Impressions: Service Date/Time: June 19:36 - CONCLUSION: 1. Chronic nonspecific urinary bladder wall thickening. Bladder collapsed with Putnam catheter in place. 2. Chronic bilateral mid to lower lung zone groundglass opacity. 3. Nonobstructing left renal calculus. 4. Distended rectum. Kush Briscoe MD Objective Remarks GENERAL: 54-year-old male, cachectic, currently on ventilator HEENT: NC/AT. PERRL. MMM dry and pink. Oropharynx without erythema or thrush NECK: No JVD. status post tracheostomy clean/dry and intact CARDIAC: RRR. S1/S2. No S4. No murmurs, clicks gallops or rubs. LUNGS: Clear to auscultation bilaterally. No wheeze, rhonchi or rales. No use of accessory muscles. ABDOMEN: S/NT/ND. Bowel sounds heard in all 4 quadrants. No organomegaly or masses. No guarding/rigidity/rebound. EXTREMITIES: No significant peripheral edema, pulses are equal bilaterally. NEUROLOGY: Patient with significant contractures of the right lower extremity, upper extremities. Eyes open spontaneously. Muscle wasting face, bilateral upper and lower extremities Procedures 07/26- PEG replacement 07/29- right pigtail catheter placement for new pneumothorax 07/29 Date of Insertion: Jul 30, 2015 A/P Assessment and Plan Neuro/Psych: Toxic metabolic Encephalopathy - chronic Parkinson's disease Cognitive disorder/Underlying dementia Depression CT head 06/18/15: - diffuse atrophy unchanged. No acute intracranial findings Continue Sinemet 25/100 3 times a day via PEG, Seroquel 50 mg twice a day, olanzapine 5 mg a night, Klonopin 2 mg every 8 hours, Paxil 20 daily and Neurontin 300 mg twice a day. These medications have been slowly titrated up since admission Continue Roxanol 5 mg every 4 hours when necessary pain and fentanyl patch 50 g every 3 days for pain management. Resp: Acute on chronic respiratory failure Chronic trach, Pneumonia Right pneumothorax status post pigtail catheter Continue with vent support keep sat >92%. Pulmonary Dr. Restrepo following CPAP trials/TP's as steven. Pulm toilet, trach care. Exchanged from a #8 fenestrated Shiley cuffed tracheostomy to a #6 Shiley fenestrated cuffed on 07/22. Duo nebs 4 times a day and when necessary albuterol. Status post chest tube replacement by interventional radiology on 07/30, chest tube removed 08/04, repeat films do not indicate any pneumothorax Cardiac History of orthostasis History of CAD, HLP, Hypertension Continue Midodrine 5 mg twice a day Monitor HR and BP keep MAP>65mmHg GI: Malnutrition/protein calorie - moderate Status post PEG Hemorrhoids Gastroesophageal reflux disease - Tolerating Jevity 1.5 at 60 cc an hour. - Currently Prevacid 30 mg per PEG tube daily for GERD - Current Colace/senna for bowel regimen. /metabolic: Nonobstructing left renal calculus Hypernatremia - resolved - Monitor renal function, I/O's. electrolytes replacement per protocol. ID: Candiduria ESBL positive Klebsiella/Pseudomonas pneumonia MRSA colonization sepsis Continue with abx per ID ( Merrem)monitor for signs of infections ( Fever, WBC) - Patient recultured Urine culture: 08/02 Klebsiella pneumonia ESBL positive Urine culture: 08/02 Heena Tropicalis, C. Glabrata Sputum culture: 08/02 Pseudomonas, Klebsiella pneumonia ESBL positive Blood culture: 08/02 yeast species, Heena glabrata, Heena tropicalis - History of Multidrug resistant UTI- ESBL 02/19/15 , MRSA + 03/20/15 - Heena glabrata in urine 03/19/15 - Rechecked blood, sputum and urine cultures 07/06 no growth - 06/17 - blood cultures 2 - CONS/staph epi - 06/17 - sputum - ESBL positive Klebsiella/Pseudomonas Treated 15 days with tobramycin aerosols twice a day. - 06/17 - urine - C. glabrata/tropicalis - treated with Diflucan Endo: --SSI if needed for glycemic control Heme Anemia - Monitor CBC MSK Bilateral lower extremity Contractures Stage II DU - Wound care evaluate and treat - Continue physical therapy Prophylaxis - GI - Prevacid - DVT - SCDs/Lovenox CCT 30 mins Antonio Carr MD Aug 11, 2015 08:51
--- NOTE | 2015-08-11 15:55 | RADRPT ---
EXAM DATE/TIME: 07/31/2015 14:34 CORRECTION Corrected on: August 11, 2015; Corrected: Request [facility] COMPARISON: CHEST EXPIRATION ONLY, July 31, 2015, 5:20. CHEST TUBE PLACEMENT, RIGHT, July 30, 2015, 14:50. INDICATIONS : Patient presents with severe sepsis and pneumothorax in need of chest tube reposition. MEDICAL HISTORY : Parkinson's disease Advanced dementia Hyponatremia Pneumonia HTN GERD Diabetes Hx UTI Encephalopathy SURGICAL HISTORY : Oral throat surgery Right chest tube placed prior 07/30/15 ENCOUNTER: Subsequent ACUITY: 1 day PAIN SCORE: 0/10 LOCATION: Unresponsive FLUORO TIME: 1.5 minutes DEVICE(S): 1.) 12 [place] non-locking catheter PROCEDURE : 1. Fluoroscopically guided chest tube reposition. 2. Conscious sedation with continuous EKG and oximetry monitoring. The risks, benefits and alternatives to the procedure were explained and verbal and written consent w as obtained. The site was prepped in sterile fashion. Full sterile technique was used, including ca p, mask, sterile gloves and gown and a large sterile sheet. Hand hygiene and 2% chlorhexidine and/or betadine/alcohol prep was utilized per protocol for cutaneous antisepsis. The skin and subcutaneous tissues were infiltrated with local anesthetic solution. The patient underwent chest x-ray approximately 24 hours post placement of the initial 10 [place] tube . A followup chest x-ray demonstrated persistent pneumothorax in spite of adequate suction. A new 12 [place] tube was advanced through the existing track in position at the lung apex without dif ficulty. There was complete reinflation of the right lung. Conscious sedation was performed with the prescribed dosages and duration as above. The patient ylnsey ated the procedure well and there were no complications. EKG and oximetry remained stable throughout the procedure. The patient was sent to post anesthesia recovery in stable condition. CONCLUSION: Uncomplicated reposition of previously placed chest tube as above. Blaine Jackson MD on July 31, 2015 at 16:51 Board Certified Radiologist. This report was verified electronically. DR Blackburn on August 11, 2015 at 15:54 Board Certified Radiologist. This report was verified electronically.
--- NOTE | 2015-08-11 16:57 | HHI.HCPN ---
Reason for visit a. To assist with evaluation and management of symptoms including: dyspnea ; pain b. To assist medical decision maker(s) with: better understanding of current medical conditions; weighing benefits/burdens of medical treatment options; making medical treatment decisions. . Subjective/Interval History Patient seen and examined in ICU. No family at bedside. Nurse indicates patient tolerated T-piece only for 3 hours, then did not tolerate CPAP and required to be put back on AC on vent. Respirations appear labored on vent, rate 22. He is non-responsive for me. Opens eyes periodically, does not track. Does not follow commands or withdraw to noxious stimuli. Afebrile. Otherwise vital signs relatively stable, baseline BP hypotensive. Tolerating tube feedings. Bowels moving. Labs relatively stable. PRN meds: * He has received one dose of 2 mg IV morphine on both 08/09 and 08/10. Fentanyl patch at 50 mcg/hr remains in place. No obvious signs of pain during my visit. From Dr. Pickard's initial palliative care consultation of 07/15/15... 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 The patient has had multiple hospitalizations which included stays in the intensive care unit for various infections. He had a urinary tract infection with multidrug resistant ESBL on 02/19/15. He was last MRSA positive on . alf notes from the facility indicate that his current baseline is: * Bedbound status * Unable to communicate * NPO -- on tube feedings at 85 cc /hr * Dependent for all ADLs In the emergency Department, initial vital signs were as follows > temperature 100.9; pulse 98; respiratory rate 38; blood pressure 104/61; pulse oximetry 99% on room air via trach collar. Initial physical examination the emergency department revealed the following > patient was frail and chronically ill-appearing. Skin showed no obvious wounds. Head, eyes, ENT, neck, cardiovascular, respiratory, gastrointestinal exams were unremarkable. Neurologically, the patient was unable to answer questions or respond or follow commands. Initial diagnostic testing revealed the following: * CBC showed WBC 16.4; hemoglobin 11.3; platelet count 176 * Coagulation profile showed PT 11.4; INR 1.1; PTT 29.4 * Chemistry profile showed sodium 141; potassium 4.5; chloride 105; CO2 27.4; anion gap 9; BUN 21; creatinine 0.85; estimated GFR 95; glucose 116; calcium 9.6 * Liver function tests showed total bilirubin 0.6; AST 23; ALT 38; alkaline phosphatase 59; total protein 7.5; albumen 3.2 * Urinalysis was remarkable for large occult blood; large leukocyte esterase; few bacteria; few yeast with hyphae; few budding yeast. * Arterial blood gases on trach mask at 40% showed pH 7.53; PCO2 33; PaO2 108; bicarbonate 27; base excess 4.2 * Chest x-ray showed no acute cardiopulmonary disease * Head CT showed diffuse atrophy unchanged from prior exam. * CT of the abdomen and pelvis showed chronic nonspecific urinary bladder wall thickening; bladder collapsed with Valdez catheter in place; chronic bilateral mid to lower lung zone groundglass opacity; nonobstructing left renal calculus; distended rectum. * The emergency room doctor diagnosed severe sepsis. The patient was given 2 L of IV fluid and broad-spectrum antibiotic-coated verge in the emergency department. Cultures were obtained. Valdez catheter was changed. As the patient was markedly tachypneic with increased work of breathing and use of accessory muscles during his stay in the emergency department. He was placed on CPAP and subsequently intubated and placed on mechanical ventilation. Critical care was consulted and the patient was admitted to the intensive care unit. Further examination revealed a stage II 6 x 2 cm sacral wound. Urine culture on admission grew out Heena of 2 different species. Sputum culture grew out Klebsiella pneumonia ESBL positive as well as pseudomonas. Blood culture grew out coag-negative staph and staph epidermidis. Both infectious disease and pulmonology were consulted. The patient slowly improved, was extubated, and critical care signed off on . However, on 07/06 the patient had to be placed back on the ventilator. A right sided pneumothorax was noted and patient underwent chest tube placement by interventional radiology. Pneumothorax has appeared to resolve on most recent chest x-ray. Sputum, blood, and urine cultures from 07/07/15 are all negative. White blood count is currently down to 7. Hemoglobin is 10.6. Albumen is suboptimal at 3.0. Renal function is normal. He is currently off anti-biotics. Current pain regimen includes the following: * Fentanyl patch; 50 g per hour * Morphine sulfate 5 mg sublingually or via the tube every 4 hours when necessary (he has been using 1-2 doses of this per day) The patient was tolerating CPAP earlier today and has since been removed from the ventilator and is on a T-piece at 40% FI02. At time of my visit, eyes are open. He intermittently tracks. He cannot follow commands and makes no attempt to interact. . Family/friend interactions Called to speak with daughterRadha via telephone to provide medical update. She asks questions about reasons for level of response, medical problems, prognosis. I explained patient has a very poor prognosis due to general debility , repeat hospitalizations/ infections, underlying comorbidities including dementia and Parkinson's disease. She verbalizes understanding of poor prognosis. She reports she may be coming to visit next week and will call me if she comes so we can meet in person. I asked her about CODE STATUS, she indicates her family "thinks he would want to fight." She is going to consider what her father would want for now will remain FULL CODE. Questions answered to her satisfaction. . Advance Directives Living Will: Never completed Health Care Surrogate: Copy in medical record Durable Power of [employer]: Never completed Advance Directive Specifics Date completed: Patient visited Scott Mack, [employer] in March and again in November 2014. The patient was encouraged to complete Advance directive documents but never did them. Dr. Pickard personally called Mr. Mack ([phone]) to check for advance directives. Health Care Surrogate(s): The patient completed a health care surrogate document dated 09/02/14 desigating his friend Bola Nolasco as surrogate. Mr. Nolasco was not aware of this and has declined serving in that capacity. The patient has an adult daughter -- Radha Foreman who is willing to serve as health care proxy decision maker. Patient's mother, Teresa is aware. Significant change in goals: FULL CODE. Goals remain aggressive. . Objective Vital Signs Date Time Temp Pulse Resp B/P Pulse Ox O2 Delivery O2 Flow Rate FiO2 08/11/15 14:00 94 08/11/15 12:20 95 35 08/11/15 12:00 93 08/11/15 12:00 35 08/11/15 12:00 97.4 83 17 94/68 97 08/11/15 10:00 79 08/11/15 08:45 96 T-piece 40 08/11/15 08:30 94 T-Piece 40 08/11/15 08:00 96.8 82 19 98/62 93 08/11/15 08:00 35 08/11/15 08:00 79 08/11/15 07:58 35 08/11/15 07:58 98 35 08/11/15 06:00 69 08/11/15 04:07 98 35 08/11/15 04:00 79 08/11/15 04:00 35 08/11/15 04:00 97.5 79 16 97/62 99 08/11/15 02:00 81 08/11/15 01:08 100 35 08/11/15 00:00 97.5 66 15 108/67 98 08/11/15 00:00 35 08/11/15 00:00 66 08/10/15 23:35 100 35 08/10/15 23:30 35 08/10/15 23:30 100 Mechanical Ventilator 32 08/10/15 22:29 97 35 08/10/15 22:00 83 08/10/15 21:24 22 08/10/15 21:00 Bi-Pap 35 08/10/15 20:00 98.3 81 24 94/56 100 08/10/15 20:00 100 Trach Collar 40 08/10/15 20:00 81 08/10/15 19:38 96 T-piece 28 08/10/15 18:00 77 Intake & Output 08/11/15 08/11/15 07:00 19:00 Intake Total 1878 ml 1032 ml Output Total 725.0 ml 350 ml Balance 1153.0 ml 682 ml IV Total 310 ml 174 ml Tube Feeding 1078 ml 598 ml Other 490 ml 260 ml Output Urine Total 725 ml 350 ml Tube Feeding Residual Discard 0 ml # Bowel Movements 1 1 Physical Exam CONSTITUTIONAL/GENERAL: This is a thin, pale, contracted, chronically ill appearing male on trach to vent in the MICU. No apparent distress. Eyes open but unresponsive. TUBES/LINES/DRAINS: Trach; valdez; SCDs; PIV; PEG tube SKIN: No jaundice, rashes, or lesions. No wounds seen anteriorly -- did not examine sacral area. Skin temperature appropriate. Not diaphoretic. EYES: Pupils equal and round. No scleral icterus. No injection or drainage. Fundi not examined. ENT: Nose without bleeding or purulent drainage. Throat difficult to visualize, mouth closed. NECK: Trachea midline. Tracheostomy. CARDIOVASCULAR: Regular rate and rhythm without murmurs, gallops, or rubs. No JVD. Peripheral pulses symmetric. RESPIRATORY/CHEST: Tachypneic with symmetric, labored respirations. Some coarse breath sounds bilaterally. Breath sounds equal bilaterally and diminished at bases. GASTROINTESTINAL: Abdomen soft, non-tender, nondistended. No guarding. Bowel sounds present. GENITOURINARY: Without palpable bladder distension. Valdez catheter in place. MUSCULOSKELETAL: Extremities without clubbing, cyanosis, or edema. Contractures. No calf tenderness. No mottling . NEUROLOGICAL: Eyes open but does not track. Unable to follow even simple commands. No spontaneous movements seen. PSYCHIATRIC: Unable to assess due to level of responsiveness. . Diagnostic Tests Laboratory Laboratory Tests Test 08/09/15 08/10/15 08/11/15 08/11/15 03:56 06:40 03:45 03:46 White Blood Count 12.5 TH/MM3 9.0 TH/MM3 8.9 TH/MM3 (4.0-11.0) (4.0-11.0) (4.0-11.0) Red Blood Count 3.32 MIL/MM3 3.31 MIL/MM3 3.32 MIL/MM3 (4.50-5.90) (4.50-5.90) (4.50-5.90) Hemoglobin 9.5 GM/DL 9.5 GM/DL 9.3 GM/DL (13.0-17.0) (13.0-17.0) (13.0-17.0) Hematocrit 29.6 % 29.3 % 29.5 % (39.0-51.0) (39.0-51.0) (39.0-51.0) Mean Corpuscular Volume 89.0 FL 88.5 FL 88.9 FL (80.0-100.0) (80.0-100.0) (80.0-100.0) Mean Corpuscular Hemoglobin 28.4 PG 28.8 PG 28.0 PG (27.0-34.0) (27.0-34.0) (27.0-34.0) Mean Corpuscular Hemoglobin 32.0 % 32.6 % 31.5 % Concent (32.0-36.0) (32.0-36.0) (32.0-36.0) Red Cell Distribution Width 13.5 % 13.4 % 13.5 % (11.6-17.2) (11.6-17.2) (11.6-17.2) Platelet Count 231 TH/MM3 226 TH/MM3 197 TH/MM3 (150-450) (150-450) (150-450) Mean Platelet Volume 10.3 FL 10.1 FL 9.9 FL (7.0-11.0) (7.0-11.0) (7.0-11.0) Neutrophils (%) (Auto) 76.7 % 65.9 % 66.2 % (16.0-70.0) (16.0-70.0) (16.0-70.0) Lymphocytes (%) (Auto) 10.0 % 17.0 % 17.8 % (9.0-44.0) (9.0-44.0) (9.0-44.0) Monocytes (%) (Auto) 5.5 % (0.0-8.0) 6.1 % (0.0-8.0) 6.1 % (0.0-8.0) Eosinophils (%) (Auto) 7.2 % (0.0-4.0) 10.4 % 9.3 % (0.0-4.0) (0.0-4.0) Basophils (%) (Auto) 0.6 % (0.0-2.0) 0.6 % (0.0-2.0) 0.6 % (0.0-2.0) Neutrophils # (Auto) 9.6 TH/MM3 5.9 TH/MM3 5.9 TH/MM3 (1.8-7.7) (1.8-7.7) (1.8-7.7) Lymphocytes # (Auto) 1.2 TH/MM3 1.5 TH/MM3 1.6 TH/MM3 (1.0-4.8) (1.0-4.8) (1.0-4.8) Monocytes # (Auto) 0.7 TH/MM3 0.6 TH/MM3 0.5 TH/MM3 (0-0.9) (0-0.9) (0-0.9) Eosinophils # (Auto) 0.9 TH/MM3 0.9 TH/MM3 0.8 TH/MM3 (0-0.4) (0-0.4) (0-0.4) Basophils # (Auto) 0.1 TH/MM3 0.1 TH/MM3 0.1 TH/MM3 (0-0.2) (0-0.2) (0-0.2) CBC Comment DIFF FINAL DIFF FINAL DIFF FINAL Differential Comment Sodium Level 142 MEQ/L 142 MEQ/L 141 MEQ/L (136-145) (136-145) (136-145) Potassium Level 4.1 MEQ/L 4.2 MEQ/L 4.2 MEQ/L (3.5-5.1) (3.5-5.1) (3.5-5.1) Chloride Level 101 MEQ/L 100 MEQ/L 97 MEQ/L (98-107) (98-107) (98-107) Carbon Dioxide Level 35.9 MEQ/L 40.7 MEQ/L 40.8 MEQ/L (21.0-32.0) (21.0-32.0) (21.0-32.0) Anion Gap 5 MEQ/L (5-15) 1 MEQ/L (5-15) 3 MEQ/L (5-15) Blood Urea Nitrogen 14 MG/DL (7-18) 16 MG/DL (7-18) 17 MG/DL (7-18) Creatinine 0.38 MG/DL 0.36 MG/DL 0.33 MG/DL (0.60-1.30) (0.60-1.30) (0.60-1.30) Estimat Glomerular Filtration 240 ML/MIN 255 ML/MIN 282 ML/MIN Rate (>89) (>89) (>89) Random Glucose 115 MG/DL 111 MG/DL 132 MG/DL (74-106) (74-106) (74-106) Calcium Level 8.9 MG/DL 9.0 MG/DL 9.1 MG/DL (8.5-10.1) (8.5-10.1) (8.5-10.1) Magnesium Level 2.0 MG/DL (1.5-2.5) Result Diagram: 08/11/15 0345 08/11/15 0346 Imaging Last Impressions Chest X-Ray 08/07/15 0600 Signed Impressions: Service Date/Time: Friday, August 07, 2015 04:59 - CONCLUSION: No evidence of pneumothorax. No significant interval change. Ilir Agosto MD Tunnelled Chest Tube Removal 08/05/15 1100 Signed Impressions: Service Date/Time: Wednesday, August 05, 2015 11:00 - CONCLUSION: Uncomplicated chest tube removal. Blaine Jackson MD Chest Tube Change 07/31/15 0000 Signed Impressions: Service Date/Time: Friday, July 31, 2015 14:34 - CONCLUSION: Uncomplicated reposition of previously placed chest tube as above. Blaine Jackson MD Chest Tube Insertion 07/30/15 0000 Signed Impressions: Service Date/Time: July 14:50 - CONCLUSION: Uncomplicated chest tube placement as above. Blaine Jackson MD Catheter Change 07/27/15 0000 Signed Impressions: Service Date/Time: Monday, July 27, 2015 14:43 - CONCLUSION: Uncomplicated gastrostomy tube exchange as above. Blaine Jackson MD Chest CT 07/11/15 0000 Signed Impressions: Service Date/Time: Saturday, July 11, 2015 09:49 - CONCLUSION: Scattered patchy densities significantly improved from previous study. Tiny anterior right basilar pneumothorax. Right-sided chest tube in good position. Néstor Matamoros MD Head CT 06/18/15 [id number] Signed Impressions: Service Date/Time: June 19:31 - CONCLUSION: Diffuse atrophy unchanged. No acute intracranial findings. Kush Briscoe MD Abdomen/Pelvis CT 06/18/15 1903 Signed Impressions: Service Date/Time: June 19:36 - CONCLUSION: 1. Chronic nonspecific urinary bladder wall thickening. Bladder collapsed with Valdez catheter in place. 2. Chronic bilateral mid to lower lung zone groundglass opacity. 3. Nonobstructing left renal calculus. 4. Distended rectum. Kush Briscoe MD . Procedures * Mechanical ventilation * Chest tube placement on right 07/07/15 * Chest tube removal 07/17/15 . Assessment and Plan Disease Oriented Problem List: (1) Acute respiratory failure Comment: Secondary to pneumonia (2) Pneumonia Comment: Cultures have been positive for Pseudomonas AND Klebsiella ESBL (3) Pneumothorax on right Comment: Resolved . (4) Septic shock Comment: Blood cx have been postiive for Staph coag neg and Staph epidermidis . (5) Parkinson disease (6) Moderate malnutrition (7) UTI (urinary tract infection) Comment: Cultures have been positive for Heena (tropicalis and glabrata) (8) Chronic respiratory failure Symptom Scale: (1) Pain 0-10 Scale: Unable to quantify Comment: Sources of pain might include wound, prolonged bedbound status, contractures, restraints, valdez, vascular access catheters. Appears comfortable on current regimen. ,l (2) Dyspnea 0-10 Scale: Unable to quantify Comment: Still intermittently tachypnic off the vent. . Pertinent Non-Medical Issues Psychosocial: [facility] intermediate resident. 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 Severe dementia. Daughter, mother, and brother are involved. Spiritual: Jainism. Has been a member for the [facility] confucianism and members have provided both community support and spiritual support in the past. Legal: No advance directives. Daughter (Radha Foreman) is legal proxy and lives 4 hours away. can be quite difficult to contact by phone. Ethical issues impacting care: None. . Important Contacts * Radha Foreman (daughter and proxy) [phone] * Teresa Perea (mother -- lives in [place]) [phone] . Prognosis Patient has end stage Parkinson's with end stage dementia. [facility] and has required multiple hospitalizations for sepsis. He is a chronic trach/PEG tube patient with contractures and skin breakdown. Should family continue to want aggressive care, he will continue to go back and forth from facility to hospital until such time that we are no longer able to overcome the sepsis. Patient is hospice eligible whenever family is ready to transition to "comfort measures only." . Code Status: Full Code Plan * Code status: FULL CODE * Decision making: Patient is incapacitated and will not regain capacity. There is no designated health care surrogate. Daughter, Radha Foreman, is legal proxy under [place] statutes but can be hard to contact at times. * 08/11/15 - Called to speak with daughter, Radha via telephone to provide medical update. She asks questions about reasons for level of response, medical problems, prognosis. I explained patient has a very poor prognosis due to general debility, repeat hospitalizations/ infections, underlying comorbidities including dementia and Parkinson's disease. She verbalizes understanding of poor prognosis. She reports she may be coming to visit next week and will call me if she comes so we can meet in person. I asked her about CODE STATUS, she indicates her family "thinks he would want to fight." She is going to consider what her father would want for now will remain FULL CODE. Questions answered to her satisfaction. * Pain: Sources of pain are unclear as patient in non communicative, but would include prolonged bedbound status; tubes and lines; contractures; wound; etc. Current regimen appears to adequate . No further recommendations at this time. * Dyspnea: Dyspnea was due to pneumonia and pneumothorax. Now improving but has been challenging to get off vent support. May need LTAC placement as he has proven hard to keep off the vent. No further recommendations at this time. * Malnutrition: Anticipate improvement as infection clears and patient is tolerating tube feeds better. * Agitation/Behavioral issues: Adequately controlled with current neuroleptic and benzo regimen. No further recommendations at this time. * Palliative care will try and meet with Radha (proxy) in person when she next comes to visit. . . Attestation To help prompt me to consider important information that might be impacting today's encounter and assessment, information from prior notes written by myself or my colleagues may have been "brought forward" into today's note. My signature on this note, however, is an attestation that I personally performed the exam, history, and/or decision-making noted today, and, unless otherwise indicated, the interactions with patient, family, and staff as well as the review of records all occurred today. I also attest that the listed assessment and stated plan reflect my best clinical judgment today based on the combination of historical information, prior notes, and today's exam/ interactions. When time spent is documented, it refers only to time spent today by the signer, or if indicated, combined time spent today by collaborating physician/nurse practitioner. . ALOK JONES Aug 11, 2015 16:56
--- NOTE | 2015-08-11 18:33 | HHI.PR ---
Subjective Remarks On Vent support A/C rate 12. Did not tolerate T Bar., FIo2 35 % . tachypneic . CXR shows no pneumothorax. Lethargic. Objective Vital Signs Date Time Temp Pulse Resp B/P Pulse Ox O2 Delivery O2 Flow Rate FiO2 08/11/15 18:00 97 08/11/15 16:42 94 35 08/11/15 16:00 97 08/11/15 16:00 98.1 97 18 106/69 96 08/11/15 16:00 35 08/11/15 14:00 94 08/11/15 12:20 95 35 08/11/15 12:00 93 08/11/15 12:00 35 08/11/15 12:00 97.4 83 17 94/68 97 08/11/15 10:00 79 08/11/15 08:45 96 T-piece 40 08/11/15 08:30 94 T-Piece 40 08/11/15 08:00 96.8 82 19 98/62 93 08/11/15 08:00 35 08/11/15 08:00 79 08/11/15 07:58 35 08/11/15 07:58 98 35 08/11/15 06:00 69 08/11/15 04:07 98 35 08/11/15 04:00 79 08/11/15 04:00 35 08/11/15 04:00 97.5 79 16 97/62 99 08/11/15 02:00 81 08/11/15 01:08 100 35 08/11/15 00:00 97.5 66 15 108/67 98 08/11/15 00:00 35 08/11/15 00:00 66 08/10/15 23:35 100 35 08/10/15 23:30 35 08/10/15 23:30 100 Mechanical Ventilator 32 08/10/15 22:29 97 35 08/10/15 22:00 83 08/10/15 21:24 22 08/10/15 21:00 Bi-Pap 35 08/10/15 20:00 98.3 81 24 94/56 100 08/10/15 20:00 100 Trach Collar 40 08/10/15 20:00 81 08/10/15 19:38 96 T-piece 28 I/O 08/10/15 08/10/15 08/10/15 08/11/155/16 7/5/16 07:00 15:00 23:00 07:00 15:00 23:00 Intake Total 937 ml 1152 ml 906 ml 972 ml 1032 ml Output Total 325 ml 1550 ml 400 ml 325 ml 350 ml Balance 612 ml -398 ml 506 ml 647 ml 682 ml IV Total 177 ml 224 ml 134 ml 176 ml 174 ml Tube Feeding 500 ml 608 ml 542 ml 536 ml 598 ml Other 260 ml 320 ml 230 ml 260 ml 260 ml Output Urine Total 325 ml 1550 ml 400 ml 325 ml 350 ml Tube Feeding Residual Discard 0 ml 0 ml # Bowel Movements 1 1 0 1 1 Result Diagram: 08/11/15 0345 08/11/15 034 Objective Remarks This is a thin white male who in on the vent with a trach tube in place. HEENT: Pupils are equal and reactive to light. CHEST: Bilateral wheeze with occ basal crackles. CARDIOVASCULAR: S1 and S2 is normal. ABDOMEN: Soft, nondistended. He has a PEG tube in place. EXTREMITIES: No edema.muscle wasting. NEURO: Lethargic and Does not move his extremities . Assessment and Plan Assessment and Plan IMPRESSION 1. Respiratory failure, ventilator dependent 2. Sepsis 3. UTI 4. Tracheobronchitis 5. Parkinson's disease 6. Dementia. 7. Severe Deconditioning. 8. Left Pneumothorax. Recurrent Plan : 1. A/C rate 10 ,FIO2 35 % and PEEP +5. 2. Nebs qid , duoneb. 3. Antibiotics per ID. 4. T Bar 40 % during the day up to 4 hrs. 5. Sedation as needed. 6. Ativan .5 mg q6h prn. 7. Tube feeds at 60 CC 8. Lovenox 40 Mg S/Q daily. Darren Kiser MD Aug 11, 2015 18:33
[2015-08-11] MEDS: OLANZapine 2.5 MG TAB GT SCH (21:00)
[2015-08-12] VITALS (17 sets, daily range): BP systolic 93–138; BP diastolic 52–80; PULSE 68–100; RESP 13–26; TEMP 97.6–100; O2SAT 90–100
[2015-08-12] MEDS: CHLORHEXIDINE GLUCONATE 2 % 1 PACK (2 CLOTHS) TOP SCH (02:00)
[2015-08-12] MEDS: RESP: ALBUTEROL 2.5 MG/IPRATROPIUM 0.5 MG NEB (SCH) NEB ×4 (03:17→20:18)
[2015-08-12] MEDS: RESP: SODIUM CHLORIDE 3% 4 ML NEB NEB SCH ×4 (03:17→20:18)
[2015-08-12] MEDS: CARBIDOPA/LEVODOPA 25 MG/100 MG TAB GT SCH ×3 (06:53→22:30)
[2015-08-12] MEDS: MEROPENEM INJ 1,000 MG in SODIUM CHLORIDE 0.9% INJ 100 ML IV SCH ×3 (06:53→22:30)
[2015-08-12] MEDS: clonazePAM 1 MG TAB PO SCH ×3 (06:53→22:30)
[2015-08-12] MEDS: PARoxetine HCL 20 MG TAB G-TUBE SCH (08:17)
[2015-08-12] MEDS: GABAPENTIN 300 MG CAP G-TUBE SCH ×2 (08:17→20:26)
[2015-08-12] MEDS: ARTIFICIAL TEARS OPTH SOLN 15 ML BTL EACH EYE SCH ×3 (08:17→18:12)
[2015-08-12] MEDS: LANSOPRAZOLE SOLUTAB 30 MG TAB NG SCH (08:17)
[2015-08-12] MEDS: SENNOSIDES SYRUP 8.8 MG/5 ML CUP PO SCH (08:18)
[2015-08-12] MEDS: MIDODRINE 5 MG TAB G-TUBE SCH ×2 (08:18→20:26)
[2015-08-12] MEDS: CHLORHEXIDINE 0.12% (ORAL KIT) 15 ML CUP MT SCH ×2 (08:18→20:26)
[2015-08-12] MEDS: QUEtiapine FUMARATE 25 MG TAB G-TUBE SCH ×2 (08:18→20:26)
[2015-08-12] MEDS: LACTOBACILLUS ACIDOPHILUS TAB PO SCH ×3 (08:18→18:12)
[2015-08-12] MEDS: SODIUM CHLORIDE 0.9% FLUSH 5 ML FLUSH IVF SCH ×2 (08:19→20:26)
[2015-08-12 09:14] LABS: AUTOMATED NEUTROPHIL # 5.1 TH/MM3 (1.8-7.7); BASOPHIL # 0.1 TH/MM3 (0-0.2); BASOPHIL % 0.8 % (0.0-2.0); EOSINOPHIL # 0.8 TH/MM3 (0-0.4); EOSINOPHIL % 9.7 % (0.0-4.0); HEMATOCRIT 29.9 % (39.0-51.0); HEMO FLAGS DIFF FINAL; LYMPH % 19.7 % (9.0-44.0); LYMPHOCYTE # 1.6 TH/MM3 (1.0-4.8); MEAN CELL VOLUME 89.1 FL (80.0-100.0); MEAN CORPUSCULAR HEMOGLOBIN 27.9 PG (27.0-34.0); MEAN CORPUSCULAR HGB CONC 31.3 % (32.0-36.0); MONO % 6.7 % (0.0-8.0); NEUT % 63.1 % (16.0-70.0); PLATELET COUNT 196 TH/MM3 (150-450); RED BLOOD COUNT 3.36 MIL/MM3 (4.50-5.90); RED CELL DISTRIBUTION WIDTH 13.3 % (11.6-17.2)
--- NOTE | 2015-08-12 09:37 | HHI.CCPN ---
Subjective Remarks/Hospital Course 06/17: Pt is a 54 yr man with multiple medial problems including Parkinson's disease, advanced dementia, hyponatremia, anxiety, pneumonia, GERD, cognitive disorder, and multidrug resistant UTI- ESBL02/19/15 , who resides in a [facility]. Pt by report was found by staff in fpc to be less alert and having respiratory difficultly and fevers. Pt was brought to ED adn placed on ventilator. His workup was inclusive of labs, chest xray and ct head and abd/pelvis. WBC 16.4, +UTI, lactic acid 4, troponin ,0.02, BUN/ cre 18/ 0.76. CT head 06/18/15: diffuse atrophy unchanged. No acute intracranial findings ct abd/ pelvis with IV contrast: 06/18/15 Conclusion: 1. Chronic nonspecific urinary bladder wall thickening. Bladder collapsed with Putnam catheter in place. 2.Chronic bilateral mid to lower zone groundglass opacity. 3. Nonobstructing left renal calculus. 4. Distended rectum Pt admitted and fluid and abx ordered. 06/18: Drowsy, easily arousable. On mechanical ventilation via tracheostomy. Tachypneic. Resting tremor noted. 06/19: Drowsy, arousable. On mechanical ventilation via tracheostomy. 06/20: Drowsy, arousable. Remains on mechanical ventilation via tracheostomy. We'll repeat blood cultures, UA and urine cultures. Fluconazole IV added in view of yeast in urine. 07/06: Reconsulted as patient return to the ventilator on a right ventricular due to tachypnea. Low-grade temperatures. Tolerating tube feeding. Extremity encephalopathic demented patient with difficult neurological examination. 07/07: Status post chest tube placement by IR for right pneumothorax 07/06. Afebrile. Tolerating tube feeds. Positive BM. Currently tachypneic on the ventilator. Does not appear to be any acute distress. 07/08: Afebrile. Tolerating tube feeding. He is comfortable currently on CPAP trials 11/10. Positive BM. 07/09: Afebrile. Tolerating tube feeding. Appears comfortable on T bar. Positive BM. 07/10: Afebrile. Eyes are open. Remained on T piece overnight. Tolerating tube feeding. 07/11: MAXIMUM TEMPERATURE 100. Currently 98.6. Eyes are open. On ACV overnight secondary to "tachypnea and sweating". Switching back to PSV trials today. Goal is T piece during daytime, CPAP at night. 07/12: No acute events overnight. On PSV 15/5 -attempt TP up to 6 hours today. No pneumothorax on chest x-ray 07/13: Placed back on full ventilator support for tachypnea. Otherwise clinically unchanged. No fever today 07/14: Patient was on T piece yesterday evening, placed back on PSV overnight, patient mechanical ventilation this morning. Patient appears to be struggling with mechanical ventilation. Patient placed back on PSV with improvement 07/15: Patient placed back on mechanical ventilation last evening due to respiratory rate. It was indicated patient was tachypnea can the 40s. Patient on mechanical ventilation this time with respiration rate mid 20s. Chest tube still in place without any output, chest x-ray still indicating resolution of pneumothorax. 07/16: Patient seen and examined today. Patient placed back on mechanical ventilation overnight due to respiratory rate. Even on mechanical ventilation patient has respiration rate in the 30s. Patient afebrile, blood pressure stable. Continue vent weaning 07/17: Patient seen and examined. Currently afebrile. Currently on CPAP 15/5 @ 40%. Patient is awake with open mouth resting in bed in no apparent acute distress. Tolerating tube feeding. 2 bowel movements. 07/18: No neurological changes. Afebrile. 2 bowel moments. Tolerating tube feeding. We'll attempt TP trials today. On CPAP since 07/15 07/19 No events overnight. On CPAP with PS: 10, PEEP: 5 and FIO2 35%. Afebrile. On no sedation. 07/20 No events overnight. Tolerating CPAP. Afebrile. 07/21: Remains on CPAP. Attempt T piece trial today. Afebrile. One bowel movement. Tolerating tube feeding. 07/22: Afebrile. Positive BM. Tolerating tube feeding. Noted switched tracheostomy to #6 Shiley cuffed fenestrated. Neurologically unchanged 07/23: Afebrile. Positive BM. Tolerating tube feeding. Questionable leak in exchange trach. Place back on a rate/ACV overnight. Insufflated seems to be doing better at the present time. Will check chest x-ray. Possible he might need #6 XLT versus replacement of chronic #8 Shiley. 07/24: Tolerating TP today, RR in low 30s patient appears comfortable. No acute events overnight 07/25: Remains off the ventilator more than 36 hours now. Intermittently tachypneic probably breathing. Chest x-ray was clear yesterday. No acute events reported overnight. PEG not functioning per RN 08/02: Patient was transferred back to critical care service due to continuing ventilator management, tachypnea. Patient clinical status with no significant change. Patient with low-grade fever 100.2, 08/03: Patient seen and examined today. No significant change in clinical status. Patient still with chronic tachypnea. Patient afebrile now. 08/04: Patient seen and examined today. No change in clinical status. Patient still continues to have chronic tachypnea. Patient afebrile. Continue vent weaning 08/05: Patient seen and examined today. Patient had chest tube removed yesterday , chest x-ray shows redevelopment of pneumothorax. Chest tube replaced. Otherwise, patient still on ventilator with tachypnea. Afebrile 08/06: Patient seen and examined today. Patient went to have chest tube placed, repeat chest x-ray did not indicate any pneumothorax. No overnight events. We' ll need to pursue LTAC placement 08/07 No events overnight. On ventilator via trach. Afebrile. 08/08 Patient tolerated CPAP x4 hrs yesterday. Afebrile. On no sedation. 08/09 No events overnight. Tolerated CPAP x 12 hrs yesterday. Afebrile. 08/10 Patient tolerated TP's x 12 hrs yesterday back on ACV overnight. 08/11 No events overnight, currently on TP's with 40% FIO2. Afebrile. Objective - Vital Signs Date Time Temp Pulse Resp B/P Pulse Ox O2 Delivery O2 Flow Rate FiO2 08/12/15 09:10 95 T-piece 40 08/12/15 06:00 72 08/12/15 04:00 97.6 13 96/59 Intake and Output 08/11/15 08/11/15 08/12/15 08:00 16:00 00:00 Intake Total 972 ml 1032 ml 730 ml Output Total 325 ml 350 ml 700.0 ml Balance 647 ml 682 ml 30.0 ml Result Diagram: 08/12/15 0705 08/11/15 0346 Other Results Laboratory Tests Test 08/12/15 07:05 White Blood Count 8.0 TH/MM3 Red Blood Count 3.36 MIL/MM3 Hemoglobin 9.4 GM/DL Hematocrit 29.9 % Mean Corpuscular Volume 89.1 FL Mean Corpuscular Hemoglobin 27.9 PG Mean Corpuscular Hemoglobin 31.3 % Concent Red Cell Distribution Width 13.3 % Platelet Count 196 TH/MM3 Mean Platelet Volume 10.2 FL Neutrophils (%) (Auto) 63.1 % Lymphocytes (%) (Auto) 19.7 % Monocytes (%) (Auto) 6.7 % Eosinophils (%) (Auto) 9.7 % Basophils (%) (Auto) 0.8 % Neutrophils # (Auto) 5.1 TH/MM3 Lymphocytes # (Auto) 1.6 TH/MM3 Monocytes # (Auto) 0.5 TH/MM3 Eosinophils # (Auto) 0.8 TH/MM3 Basophils # (Auto) 0.1 TH/MM3 CBC Comment DIFF FINAL Differential Comment Imaging Last Impressions Chest X-Ray 08/07/15 0600 Signed Impressions: Service Date/Time: Friday, August 07, 2015 04:59 - CONCLUSION: No evidence of pneumothorax. No significant interval change. Ilir Agosto MD Tunnelled Chest Tube Removal 08/05/15 1100 Signed Impressions: Service Date/Time: Wednesday, August 05, 2015 11:00 - CONCLUSION: Uncomplicated chest tube removal. Blaine Jackson MD Chest Tube Change 07/31/15 0000 Signed Impressions: Service Date/Time: Friday, July 31, 2015 14:34 - CONCLUSION: Uncomplicated reposition of previously placed chest tube as above. Blaine Jackson MD Chest Tube Insertion 07/30/15 0000 Signed Impressions: Service Date/Time: July 14:50 - CONCLUSION: Uncomplicated chest tube placement as above. Blaine Jackson MD Catheter Change 07/27/15 0000 Signed Impressions: Service Date/Time: Monday, July 27, 2015 14:43 - CONCLUSION: Uncomplicated gastrostomy tube exchange as above. Blaine Jackson MD Chest CT 07/11/15 0000 Signed Impressions: Service Date/Time: Saturday, July 11, 2015 09:49 - CONCLUSION: Scattered patchy densities significantly improved from previous study. Tiny anterior right basilar pneumothorax. Right-sided chest tube in good position. Néstor Matamoros MD Head CT 06/18/151902 Signed Impressions: Service Date/Time: June 19:31 - CONCLUSION: Diffuse atrophy unchanged. No acute intracranial findings. Kush Briscoe MD Abdomen/Pelvis CT 06/18/151902 Signed Impressions: Service Date/Time: , June 18, 2015 19:36 - CONCLUSION: 1. Chronic nonspecific urinary bladder wall thickening. Bladder collapsed with Putnam catheter in place. 2. Chronic bilateral mid to lower lung zone groundglass opacity. 3. Nonobstructing left renal calculus. 4. Distended rectum. Kush Briscoe MD Objective Remarks GENERAL: 54-year-old male, cachectic, currently on ventilator HEENT: NC/AT. PERRL. MMM dry and pink. Oropharynx without erythema or thrush NECK: No JVD. status post tracheostomy clean/dry and intact CARDIAC: RRR. S1/S2. No S4. No murmurs, clicks gallops or rubs. LUNGS: Clear to auscultation bilaterally. No wheeze, rhonchi or rales. No use of accessory muscles. ABDOMEN: S/NT/ND. Bowel sounds heard in all 4 quadrants. No organomegaly or masses. No guarding/rigidity/rebound. EXTREMITIES: No significant peripheral edema, pulses are equal bilaterally. NEUROLOGY: Patient with significant contractures of the right lower extremity, upper extremities. Eyes open spontaneously. Muscle wasting face, bilateral upper and lower extremities Procedures 07/26- PEG replacement 07/29- right pigtail catheter placement for new pneumothorax 07/29 Date of Insertion: Jul 30, 2015 A/P Assessment and Plan Neuro/Psych: Toxic metabolic Encephalopathy - chronic Parkinson's disease Cognitive disorder/Underlying dementia Depression CT head 06/18/15: - diffuse atrophy unchanged. No acute intracranial findings Continue Sinemet 25/100 3 times a day via PEG, Seroquel 50 mg twice a day, olanzapine 5 mg a night, Klonopin 2 mg every 8 hours, Paxil 20 daily and Neurontin 300 mg twice a day. These medications have been slowly titrated up since admission Continue Roxanol 5 mg every 4 hours when necessary pain and fentanyl patch 50 g every 3 days for pain management. Resp: Acute on chronic respiratory failure Chronic trach, Pneumonia Right pneumothorax status post pigtail catheter Continue with vent support keep sat >92%. Pulmonary Dr. Restrepo following CPAP trials/TP's as steven. Pulm toilet, trach care. Exchanged from a #8 fenestrated Shiley cuffed tracheostomy to a #6 Shiley fenestrated cuffed on 07/22. Duo nebs 4 times a day and when necessary albuterol. Status post chest tube replacement by interventional radiology on 07/30, chest tube removed 08/04, repeat films do not indicate any pneumothorax Cardiac History of orthostasis History of CAD, HLP, Hypertension Continue Midodrine 5 mg twice a day Monitor HR and BP keep MAP>65mmHg GI: Malnutrition/protein calorie - moderate Status post PEG Hemorrhoids Gastroesophageal reflux disease - Tolerating Jevity 1.5 at 60 cc an hour. - Currently Prevacid 30 mg per PEG tube daily for GERD - Current Colace/senna for bowel regimen. /metabolic: Nonobstructing left renal calculus Hypernatremia - resolved - Monitor renal function, I/O's. electrolytes replacement per protocol. ID: Candiduria ESBL positive Klebsiella/Pseudomonas pneumonia MRSA colonization sepsis Continue with abx per ID ( Merrem)monitor for signs of infections ( Fever, WBC) - Patient recultured Urine culture: 08/02 Klebsiella pneumonia ESBL positive Urine culture: 08/02 Heena Tropicalis, C. Glabrata Sputum culture: 08/02 Pseudomonas, Klebsiella pneumonia ESBL positive Blood culture: 08/02 yeast species, Heena glabrata, Heena tropicalis - History of Multidrug resistant UTI- ESBL 02/19/15 , MRSA + 03/20/15 - Heena glabrata in urine 03/19/15 - Rechecked blood, sputum and urine cultures 07/06 no growth - 06/17 - blood cultures 2 - CONS/staph epi - 06/17 - sputum - ESBL positive Klebsiella/Pseudomonas Treated 15 days with tobramycin aerosols twice a day. - 06/17 - urine - C. glabrata/tropicalis - treated with Diflucan Endo: --SSI if needed for glycemic control Heme Anemia - Monitor CBC MSK Bilateral lower extremity Contractures Stage II DU - Wound care evaluate and treat - Continue physical therapy Prophylaxis - GI - Prevacid - DVT - SCDs/Lovenox CCT 30 mins Antonio Carr MD Aug 12, 2015 09:37
[2015-08-12 09:38] LABS: BICARBONATE 40.2 MEQ/L (21.0-32.0); MAGNESIUM 2.1 MG/DL (1.5-2.5); POTASSIUM 4.3 MEQ/L (3.5-5.1)
--- NOTE | 2015-08-12 10:53 | HHI.IDPN ---
Subjective Subjective Remarks ID COVERAGE Chart reviewed Mr. Foreman is a 54-year-old male with past medical history significant for Parkinson's disease, advanced dementia, hyponatremia, history of ESBL UTI. Admitted with sepsis. Now with Pneumonia, UTI and staph bacteremia Notes reviewed Has trach, currently on T-piece Looks dyspneic and sats in high 80s Sounds very congested [place] changed 08/02 Occ low grade temps WBC normal BP ok Antibiotics meropenem Lines Line sites with no e/o infection Past Medical History reviewed Allergies: Coded Allergies: *MDRO Multi-Drug Resistant Organism (Verified Adverse Reaction, Unknown, ) ESBL E. coli (urine) - 02/19/2015; ESBL K. pneumoniae (sputum) - 06/18/15, (urine) - 08/03/15, (sputum) - 08/03/15 MRSA PCR POSITIVE - 03/20/2015 Objective . Vital Signs Date Time Temp Pulse Resp B/P Pulse Ox O2 Delivery O2 Flow Rate FiO2 08/12/15 10:00 79 08/12/15 09:10 95 T-piece 40 08/12/15 08:00 98.4 84 20 98/57 98 08/12/15 08:00 84 08/12/15 08:00 35 08/12/15 07:40 35 08/12/15 07:40 100 35 08/12/15 07:00 97 Mechanical Ventilator 35 08/12/15 06:00 72 08/12/15 04:11 99 35 08/12/15 04:00 97.6 68 13 96/59 99 08/12/15 04:00 68 08/12/15 04:00 35 08/12/15 02:00 75 08/12/15 01:21 99 35 08/12/15 00:00 89 08/12/15 00:00 99.3 89 20 97/58 96 08/12/15 00:00 35 08/11/15 22:30 99.9 08/11/15 22:30 97 35 08/11/15 22:00 92 08/11/15 20:22 96 35 08/11/15 20:00 96 08/11/15 20:00 100.5 96 26 103/64 96 08/11/15 20:00 96 Mechanical Ventilator 35 08/11/15 20:00 35 08/11/15 18:00 97 08/11/15 16:42 94 35 08/11/15 16:00 97 08/11/15 16:00 98.1 97 18 106/69 96 08/11/15 16:00 35 08/11/15 14:00 94 08/11/15 12:20 95 35 08/11/15 12:00 93 08/11/15 12:00 35 08/11/15 12:00 97.4 83 17 94/68 97 08/11/15 08/11/15 08/12/15 15:00 23:00 07:00 Intake Total 1032 ml 730 ml 629 ml Output Total 350 ml 700 ml 400 ml Balance 682 ml 30 ml 229 ml IV Total 174 ml 182 ml 73 ml Tube Feeding 598 ml 488 ml 496 ml Other 260 ml 60 ml 60 ml Output Urine Total 350 ml 700 ml 400 ml Tube Feeding Residual Discard 0 ml 0 ml # Bowel Movements 1 0 0 . Laboratory Tests Test 08/11/15 08/12/15 03:45 07:05 White Blood Count 8.9 TH/MM3 8.0 TH/MM3 Red Blood Count 3.32 MIL/MM3 3.36 MIL/MM3 Hemoglobin 9.3 GM/DL 9.4 GM/DL Hematocrit 29.5 % 29.9 % Mean Corpuscular Volume 88.9 FL 89.1 FL Mean Corpuscular Hemoglobin 28.0 PG 27.9 PG Mean Corpuscular Hemoglobin 31.5 % 31.3 % Concent Red Cell Distribution Width 13.5 % 13.3 % Platelet Count 197 TH/MM3 196 TH/MM3 Mean Platelet Volume 9.9 FL 10.2 FL Neutrophils (%) (Auto) 66.2 % 63.1 % Lymphocytes (%) (Auto) 17.8 % 19.7 % Monocytes (%) (Auto) 6.1 % 6.7 % Eosinophils (%) (Auto) 9.3 % 9.7 % Basophils (%) (Auto) 0.6 % 0.8 % Neutrophils # (Auto) 5.9 TH/MM3 5.1 TH/MM3 Lymphocytes # (Auto) 1.6 TH/MM3 1.6 TH/MM3 Monocytes # (Auto) 0.5 TH/MM3 0.5 TH/MM3 Eosinophils # (Auto) 0.8 TH/MM3 0.8 TH/MM3 Basophils # (Auto) 0.1 TH/MM3 0.1 TH/MM3 CBC Comment DIFF FINAL DIFF FINAL Differential Comment Laboratory Tests Test 08/11/15 08/12/15 03:46 07:05 Sodium Level 141 MEQ/L 142 MEQ/L Potassium Level 4.2 MEQ/L 4.3 MEQ/L Chloride Level 97 MEQ/L 98 MEQ/L Carbon Dioxide Level 40.8 MEQ/L 40.2 MEQ/L Anion Gap 3 MEQ/L 4 MEQ/L Blood Urea Nitrogen 17 MG/DL 18 MG/DL Creatinine 0.33 MG/DL 0.31 MG/DL Estimat Glomerular Filtration 282 ML/MIN 303 ML/MIN Rate Random Glucose 132 MG/DL 108 MG/DL Calcium Level 9.1 MG/DL 9.0 MG/DL Magnesium Level 2.0 MG/DL 2.1 MG/DL Imaging Last Impressions Chest X-Ray 08/07/15 0600 Signed Impressions: Service Date/Time: Friday, August 07, 2015 04:59 - CONCLUSION: No evidence of pneumothorax. No significant interval change. Ilir Agosto MD Tunnelled Chest Tube Removal 08/05/15 1100 Signed Impressions: Service Date/Time: Wednesday, August 05, 2015 11:00 - CONCLUSION: Uncomplicated chest tube removal. Blaine Jackson MD Chest Tube Change 07/31/15 0000 Signed Impressions: Service Date/Time: Friday, July 31, 2015 14:34 - CONCLUSION: Uncomplicated reposition of previously placed chest tube as above. Blaine Jackson MD Chest Tube Insertion 07/30/15 0000 Signed Impressions: Service Date/Time: July 14:50 - CONCLUSION: Uncomplicated chest tube placement as above. Blaine Jackson MD Catheter Change 07/27/15 0000 Signed Impressions: Service Date/Time: Monday, July 27, 2015 14:43 - CONCLUSION: Uncomplicated gastrostomy tube exchange as above. Blaine Jackson MD Chest CT 07/11/15 0000 Signed Impressions: Service Date/Time: Saturday, July 11, 2015 09:49 - CONCLUSION: Scattered patchy densities significantly improved from previous study. Tiny anterior right basilar pneumothorax. Right-sided chest tube in good position. Néstor Matamoros MD Head CT 06/18/15 4689 Signed Impressions: Service Date/Time: June 19:31 - CONCLUSION: Diffuse atrophy unchanged. No acute intracranial findings. Kush Briscoe MD Abdomen/Pelvis CT 06/18/15 1903 Signed Impressions: Service Date/Time: June 19:36 - CONCLUSION: 1. Chronic nonspecific urinary bladder wall thickening. Bladder collapsed with Valdez catheter in place. 2. Chronic bilateral mid to lower lung zone groundglass opacity. 3. Nonobstructing left renal calculus. 4. Distended rectum. Kush Briscoe MD Physical Exam GENERAL: Cachectic, dyspneic, on T-piece SKIN: No generalized rashes, ecchymoses or lesions. Cool and dry. HEENT: [place] conjunctivae, moist mucosa NECK: Trach site with no evidence of infection. CARDIOVASCULAR: No murmur appreciated. RESPIRATORY: Diffuse rhonchi. GASTROINTESTINAL: Abdomen soft, non-tender, mildly distended. PEG tube site with no evidence of infection. MUSCULOSKELETAL: Increased tone in all extremities. Rigidity noted. NEUROLOGICAL: Opens eyes spontaneously. No verbal response does, not follow commands. Peripheral IV line sites with no evidence of infection. ; Valdez in place, urine looks clear Assessment & Plan Remarks Acute tracheobronchitis. ESBL Kleb pneumo and PSAE. Chest x-ray is negative, sputum purulent Acute on chronic respiratory failure was on trach and had to be placed on ventilator. - on T-piece currently, lokks dyspneic Acute encephalopathy sepsis but has an underlying diagnosis of advanced dementia as well as advanced Parkinson's disease. Prior history of ESBL UTI - UC now with low colony count yeast and PSAE, valdez changed Urine Cx first one from old valdez with ESBL: likely colonization. Funguria likely colonization. Not being treated and clinically improved. Prior history of MRSA colonization. Status post trach Status post gastrostomy tube with no evidence of infection. Stage II sacral decubitus ulcer present on admission. Recommendations Continue meropenem to cover both ESBL and PSAE x 10-14 days Follow cultures Follow clinically. Monitor progress Monitor Bhavna Ramírez MD Aug 12, 2015 10:53
--- NOTE | 2015-08-12 18:05 | HHI.PR ---
Subjective Remarks On T bar 40 %. On A/C rate 12 at HS. tachypneic . Output natanael OK. Lethargic. Objective Vital Signs Date Time Temp Pulse Resp B/P Pulse Ox O2 Delivery O2 Flow Rate FiO2 08/12/15 14:00 90 08/12/15 12:00 98.7 84 21 93/52 90 08/12/15 12:00 40 08/12/15 12:00 84 08/12/15 10:00 79 08/12/15 09:10 95 T-piece 40 08/12/15 08:00 98.4 84 20 98/57 98 08/12/15 08:00 84 08/12/15 08:00 35 08/12/15 07:40 35 08/12/15 07:40 100 35 08/12/15 07:00 97 Mechanical Ventilator 35 08/12/15 06:00 72 08/12/15 04:11 99 35 08/12/15 04:00 97.6 68 13 96/59 99 08/12/15 04:00 68 08/12/15 04:00 35 08/12/15 02:00 75 08/12/15 01:21 99 35 08/12/15 00:00 89 08/12/15 00:00 99.3 89 20 97/58 96 08/12/15 00:00 35 08/11/15 22:30 99.9 08/11/15 22:30 97 35 08/11/15 22:00 92 08/11/15 20:22 96 35 08/11/15 20:00 96 08/11/15 20:00 100.5 96 26 103/64 96 08/11/15 20:00 96 Mechanical Ventilator 35 08/11/15 20:00 35 I/O 08/11/15 08/11/15 08/11/15 08/12/15 08/12/15 08/12/15 07:00 15:00 23:00 07:00 15:00 23:00 Intake Total 972 ml 1032 ml 730 ml 629 ml 789 ml Output Total 325 ml 350 ml 700 ml 400 ml 450 ml Balance 647 ml 682 ml 30 ml 229 ml 339 ml IV Total 176 ml 174 ml 182 ml 73 ml 194 ml Tube Feeding 536 ml 598 ml 488 ml 496 ml 445 ml Tube Irrigant 150 ml Other 260 ml 260 ml 60 ml 60 ml Output Urine Total 325 ml 350 ml 700 ml 400 ml 450 ml Tube Feeding Residual Discard 0 ml 0 ml 0 ml # Bowel Movements 1 1 0 0 Result Diagram: 08/12/1570408/12/15704 Objective Remarks This is a thin white male who in on the vent with a trach tube in place. HEENT: Pupils are equal and reactive to light.Throat is clear. CHEST: Bilateral wheeze with occ basal crackles. CARDIOVASCULAR: S1 and S2 is normal. ABDOMEN: Soft, nondistended. He has a PEG tube in place. EXTREMITIES: No edema.muscle wasting. NEURO: Lethargic and Does not move his extremities . Assessment and Plan Assessment and Plan IMPRESSION 1. Respiratory failure, ventilator dependent 2. Sepsis 3. UTI 4. Tracheobronchitis 5. Parkinson's disease 6. Dementia. 7. Severe Deconditioning. 8. Left Pneumothorax. Recurrent Plan : 1. A/C rate 10 at HS PEEP + 5, FIO2 35 %. 2. Nebs qid , duoneb. 3. Antibiotics per ID. 4. T Bar 40 % during the day. 5. Labs in am. 6. Ativan .5 mg q6h prn. 7. Tube feeds at 60 CC 8. Lovenox 40 Mg S/Q daily. Darren Kiser MD Aug 12, 2015 18:05
[2015-08-12] MEDS: OLANZapine 2.5 MG TAB GT SCH (20:26)
[2015-08-12] MEDS: ENOXAPARIN SODIUM 40 MG/0.4 ML SYRINGE SQ SCH (22:31)
[2015-08-13] VITALS (19 sets, daily range): BP systolic 95–129; BP diastolic 58–83; PULSE 65–92; RESP 10–29; TEMP 97.3–99.2; O2SAT 94–99
[2015-08-13] MEDS: RESP: SODIUM CHLORIDE 3% 4 ML NEB NEB SCH ×3 (03:23→20:11)
[2015-08-13] MEDS: RESP: ALBUTEROL 2.5 MG/IPRATROPIUM 0.5 MG NEB (SCH) NEB ×4 (03:23→20:11)
[2015-08-13] MEDS: CHLORHEXIDINE GLUCONATE 2 % 1 PACK (2 CLOTHS) TOP SCH (04:00)
[2015-08-13 04:29] LABS: AUTOMATED NEUTROPHIL # 5.9 TH/MM3 (1.8-7.7); BASOPHIL # 0.1 TH/MM3 (0-0.2); BASOPHIL % 0.7 % (0.0-2.0); EOSINOPHIL # 0.7 TH/MM3 (0-0.4); EOSINOPHIL % 7.9 % (0.0-4.0); HEMATOCRIT 28.9 % (39.0-51.0); HEMO FLAGS DIFF FINAL; LYMPH % 17.6 % (9.0-44.0); LYMPHOCYTE # 1.5 TH/MM3 (1.0-4.8); MEAN CORPUSCULAR HEMOGLOBIN 28.2 PG (27.0-34.0); MEAN CORPUSCULAR HGB CONC 31.7 % (32.0-36.0); MONO % 6.5 % (0.0-8.0); NEUT % 67.3 % (16.0-70.0); PLATELET COUNT 210 TH/MM3 (150-450); RED BLOOD COUNT 3.24 MIL/MM3 (4.50-5.90); RED CELL DISTRIBUTION WIDTH 13.3 % (11.6-17.2); WHITE BLOOD COUNT 8.7 TH/MM3 (4.0-11.0)
[2015-08-13 04:48] LABS: BICARBONATE 38.6 MEQ/L (21.0-32.0); MAGNESIUM 2.1 MG/DL (1.5-2.5); POTASSIUM 4.1 MEQ/L (3.5-5.1)
[2015-08-13] MEDS: MEROPENEM INJ 1,000 MG in SODIUM CHLORIDE 0.9% INJ 100 ML IV SCH ×3 (05:48→21:07)
[2015-08-13] MEDS: clonazePAM 1 MG TAB PO SCH ×3 (05:48→21:04)
[2015-08-13] MEDS: CARBIDOPA/LEVODOPA 25 MG/100 MG TAB GT SCH ×3 (05:48→21:05)
[2015-08-13] MEDS: REMOVE OLD PATCH TD SCH (08:00)
[2015-08-13] MEDS: CHLORHEXIDINE 0.12% (ORAL KIT) 15 ML CUP MT SCH ×2 (08:00→21:09)
[2015-08-13] MEDS: MIDODRINE 5 MG TAB G-TUBE SCH ×2 (08:41→21:05)
[2015-08-13] MEDS: QUEtiapine FUMARATE 25 MG TAB G-TUBE SCH ×2 (08:41→21:04)
[2015-08-13] MEDS: ARTIFICIAL TEARS OPTH SOLN 15 ML BTL EACH EYE SCH ×3 (08:41→17:12)
[2015-08-13] MEDS: GABAPENTIN 300 MG CAP G-TUBE SCH ×2 (08:41→21:04)
[2015-08-13] MEDS: SODIUM CHLORIDE 0.9% FLUSH 5 ML FLUSH IVF SCH ×2 (08:41→21:05)
[2015-08-13] MEDS: PARoxetine HCL 20 MG TAB G-TUBE SCH (08:41)
[2015-08-13] MEDS: SENNOSIDES SYRUP 8.8 MG/5 ML CUP PO SCH (08:42)
[2015-08-13] MEDS: LACTOBACILLUS ACIDOPHILUS TAB PO SCH ×3 (08:42→17:02)
[2015-08-13] MEDS: fentaNYL 50 MCG/HR PATCH TD SCH (08:42)
[2015-08-13] MEDS: LANSOPRAZOLE SOLUTAB 30 MG TAB NG SCH (08:42)
--- NOTE | 2015-08-13 10:44 | HHI.IDPN ---
Subjective Subjective Remarks ID COVERAGE Chart reviewed Mr. Foreman is a 54-year-old male with past medical history significant for Parkinson's disease, advanced dementia, hyponatremia, history of ESBL UTI. Admitted with sepsis. Now with Pneumonia, UTI and staph bacteremia Notes reviewed D/W RN Low grade temps yesterday Did all day T-piece yesterday On CPAP this AM, changed to T-piece at 830 am Looks dyspneic but sats 94% Awake, not following commands UO good Valdez changed 08/02 WBC normal BP ok Antibiotics meropenem Lines Line sites with no e/o infection Past Medical History reviewed Allergies: Coded Allergies: *MDRO Multi-Drug Resistant Organism (Verified Adverse Reaction, Unknown, ) ESBL E. coli (urine) - 02/19/2015; ESBL K. pneumoniae (sputum) - 06/18/15, (urine) - 08/03/15, (sputum) - 08/03/15 MRSA PCR POSITIVE - 03/20/2015 Objective . Vital Signs Date Time Temp Pulse Resp B/P Pulse Ox O2 Delivery O2 Flow Rate FiO2 08/13/15 10:00 92 08/13/15 09:45 94 T-piece 8.00 40 08/13/15 08:00 35 08/13/15 08:00 85 08/13/15 08:00 99.2 85 29 126/67 97 08/13/15 07:41 35 08/13/15 07:41 94 35 08/13/15 07:00 95 Mechanical Ventilator 35 08/13/15 06:00 80 08/13/15 04:12 99 35 08/13/15 04:00 35 08/13/15 04:00 98.8 80 21 102/68 99 08/13/15 04:00 80 08/13/15 02:00 89 08/13/15 01:08 98 35 08/13/15 00:00 92 08/13/15 00:00 97.4 92 23 95/62 96 08/13/15 00:00 35 08/12/15 22:00 91 08/12/15 20:00 100.0 92 26 105/62 97 08/12/15 20:00 93 08/12/15 20:00 35 08/12/15 19:02 97 35 08/12/15 19:00 97 Mechanical Ventilator 35 08/12/15 18:00 97 08/12/15 16:00 98.2 100 25 138/80 98 08/12/15 16:00 100 08/12/15 16:00 40 08/12/15 14:00 90 08/12/15 12:00 98.7 84 21 93/52 90 08/12/15 12:00 40 08/12/15 12:00 84 08/12/15 08/12/15 08/13/15 15:00 23:00 07:00 Intake Total 789 ml 714 ml 667 ml Output Total 450 ml 800 ml 750 ml Balance 339 ml -86 ml -83 ml Intake Oral 0 ml 0 ml IV Total 194 ml 164 ml 197 ml Tube Feeding 445 ml 510 ml 430 ml Tube Irrigant 150 ml 40 ml 40 ml Output Urine Total 450 ml 800 ml 750 ml # Bowel Movements 0 0 . Laboratory Tests Test 08/12/15 08/13/15 07:05 03:49 White Blood Count 8.0 TH/MM3 8.7 TH/MM3 Red Blood Count 3.36 MIL/MM3 3.24 MIL/MM3 Hemoglobin 9.4 GM/DL 9.1 GM/DL Hematocrit 29.9 % 28.9 % Mean Corpuscular Volume 89.1 FL 89.0 FL Mean Corpuscular Hemoglobin 27.9 PG 28.2 PG Mean Corpuscular Hemoglobin 31.3 % 31.7 % Concent Red Cell Distribution Width 13.3 % 13.3 % Platelet Count 196 TH/MM3 210 TH/MM3 Mean Platelet Volume 10.2 FL 9.9 FL Neutrophils (%) (Auto) 63.1 % 67.3 % Lymphocytes (%) (Auto) 19.7 % 17.6 % Monocytes (%) (Auto) 6.7 % 6.5 % Eosinophils (%) (Auto) 9.7 % 7.9 % Basophils (%) (Auto) 0.8 % 0.7 % Neutrophils # (Auto) 5.1 TH/MM3 5.9 TH/MM3 Lymphocytes # (Auto) 1.6 TH/MM3 1.5 TH/MM3 Monocytes # (Auto) 0.5 TH/MM3 0.6 TH/MM3 Eosinophils # (Auto) 0.8 TH/MM3 0.7 TH/MM3 Basophils # (Auto) 0.1 TH/MM3 0.1 TH/MM3 CBC Comment DIFF FINAL DIFF FINAL Differential Comment Laboratory Tests Test 08/12/15 08/13/15 07:05 03:49 Sodium Level 142 MEQ/L 141 MEQ/L Potassium Level 4.3 MEQ/L 4.1 MEQ/L Chloride Level 98 MEQ/L 100 MEQ/L Carbon Dioxide Level 40.2 MEQ/L 38.6 MEQ/L Anion Gap 4 MEQ/L 2 MEQ/L Blood Urea Nitrogen 18 MG/DL 18 MG/DL Creatinine 0.31 MG/DL 0.38 MG/DL Estimat Glomerular Filtration 303 ML/MIN 240 ML/MIN Rate Random Glucose 108 MG/DL 98 MG/DL Calcium Level 9.0 MG/DL 9.2 MG/DL Magnesium Level 2.1 MG/DL 2.1 MG/DL Imaging Last Impressions Chest X-Ray 08/07/15 0600 Signed Impressions: Service Date/Time: Friday, August 07, 2015 04:59 - CONCLUSION: No evidence of pneumothorax. No significant interval change. Ilir Agosto MD Tunnelled Chest Tube Removal 08/05/15 1100 Signed Impressions: Service Date/Time: Wednesday, August 05, 2015 11:00 - CONCLUSION: Uncomplicated chest tube removal. Blaine Jcakson MD Chest Tube Change 07/31/15 0000 Signed Impressions: Service Date/Time: Friday, July 31, 2015 14:34 - CONCLUSION: Uncomplicated reposition of previously placed chest tube as above. Blaine Jackson MD Chest Tube Insertion 07/30/15 0000 Signed Impressions: Service Date/Time: July 14:50 - CONCLUSION: Uncomplicated chest tube placement as above. Blaine Jackson MD Catheter Change 07/27/15 0000 Signed Impressions: Service Date/Time: Monday, July 27, 2015 14:43 - CONCLUSION: Uncomplicated gastrostomy tube exchange as above. Blaine Jackson MD Chest CT 07/11/15 0000 Signed Impressions: Service Date/Time: Saturday, July 11, 2015 09:49 - CONCLUSION: Scattered patchy densities significantly improved from previous study. Tiny anterior right basilar pneumothorax. Right-sided chest tube in good position. Néstor Matamoros MD Head CT 06/18/15 1903 Signed Impressions: Service Date/Time: June 19:31 - CONCLUSION: Diffuse atrophy unchanged. No acute intracranial findings. Kush Briscoe MD Abdomen/Pelvis CT 06/18/15 1903 Signed Impressions: Service Date/Time: June 19:36 - CONCLUSION: 1. Chronic nonspecific urinary bladder wall thickening. Bladder collapsed with Valdez catheter in place. 2. Chronic bilateral mid to lower lung zone groundglass opacity. 3. Nonobstructing left renal calculus. 4. Distended rectum. Kush Briscoe MD Physical Exam GENERAL: Cachectic, dyspneic, on T-piece. Awake, not following SKIN: No generalized rashes, ecchymoses or lesions. Cool and dry. HEENT: Arial conjunctivae, moist mucosa NECK: Trach site with no evidence of infection. CARDIOVASCULAR: No murmur appreciated. RESPIRATORY: Coarse BS razia, with few rhonchi GASTROINTESTINAL: Abdomen soft, non-tender, mildly distended. PEG tube site with no evidence of infection. MUSCULOSKELETAL: Increased tone in all extremities. Rigidity noted. NEUROLOGICAL: Opens eyes spontaneously. No verbal response does, not follow commands. Peripheral IV line sites with no evidence of infection. ; Valdez in place, urine looks clear Assessment & Plan Remarks Acute tracheobronchitis. ESBL Kleb pneumo and PSAE. Chest x-ray is negative, sputum purulent Acute on chronic respiratory failure was on trach and had to be placed on ventilator. - on T-piece currently, lokks dyspneic Acute encephalopathy sepsis but has an underlying diagnosis of advanced dementia as well as advanced Parkinson's disease. Prior history of ESBL UTI - UC now with low colony count yeast and PSAE, valdez changed Urine Cx first one from old valdez with ESBL: likely colonization. Funguria likely colonization. Not being treated and clinically improved. Prior history of MRSA colonization. Status post trach Status post gastrostomy tube with no evidence of infection. Stage II sacral decubitus ulcer present on admission. Recommendations Continue meropenem to cover both ESBL and PSAE x 10-14 days - anticipated end date August 19 Follow cultures Follow clinically. Monitor progress Monitor temps Weaning per CCM D/W Bhavna Piedra MD Aug 13, 2015 10:44
--- NOTE | 2015-08-13 12:07 | HHI.PR ---
Subjective Remarks On a T bar and FIo2 40 %. On A/C rate 12 at HS. tachypneic . Output was OK. Lethargic. Objective Vital Signs Date Time Temp Pulse Resp B/P Pulse Ox O2 Delivery O2 Flow Rate FiO2 08/13/15 10:00 92 08/13/15 09:45 94 T-piece 8.00 40 08/13/15 08:00 35 08/13/15 08:00 85 08/13/15 08:00 99.2 85 29 126/67 97 08/13/15 07:41 35 08/13/15 07:41 94 35 08/13/15 07:00 95 Mechanical Ventilator 35 08/13/15 06:00 80 08/13/15 04:12 99 35 08/13/15 04:00 35 08/13/15 04:00 98.8 80 21 102/68 99 08/13/15 04:00 80 08/13/15 02:00 89 08/13/15 01:08 98 35 08/13/15 00:00 92 08/13/15 00:00 97.4 92 23 95/62 96 08/13/15 00:00 35 08/12/15 22:00 91 08/12/15 20:00 100.0 92 26 105/62 97 08/12/15 20:00 93 08/12/15 20:00 35 08/12/15 19:02 97 35 08/12/15 19:00 97 Mechanical Ventilator 35 08/12/15 18:00 97 08/12/15 16:00 98.2 100 25 138/80 98 08/12/15 16:00 100 08/12/15 16:00 40 08/12/15 14:00 90 I/O 08/12/15 08/12/15 08/12/15 08/13/15 08/13/15 08/13/15 07:00 15:00 23:00 07:00 15:00 23:00 Intake Total 629 ml 789 ml 714 ml 667 ml Output Total 400 ml 450 ml 800 ml 750 ml Balance 229 ml 339 ml -86 ml -83 ml Intake Oral 0 ml 0 ml IV Total 73 ml 194 ml 164 ml 197 ml Tube Feeding 496 ml 445 ml 510 ml 430 ml Tube Irrigant 150 ml 40 ml 40 ml Other 60 ml Output Urine Total 400 ml 450 ml 800 ml 750 ml Tube Feeding Residual Discard 0 ml # Bowel Movements 0 0 0 Result Diagram: 08/13/15 0349 08/13/15 034 Objective Remarks This is a thin white male who in on the vent with a trach tube in place. HEENT: Pupils are equal and reactive to light.Throat is clear. CHEST: Bilateral wheeze with occ basal crackles. Decreased breath sounds . CARDIOVASCULAR: S1 and S2 is normal. ABDOMEN: Soft, nondistended. He has a PEG tube in place. EXTREMITIES: No edema.muscle wasting. NEURO: Lethargic and Does not move his extremities . Assessment and Plan Assessment and Plan IMPRESSION 1. Respiratory failure, ventilator dependent 2. Sepsis 3. UTI 4. Tracheobronchitis 5. Parkinson's disease 6. Dementia. 7. Severe Deconditioning. 8. Left Pneumothorax. Recurrent Plan : 1. A/C rate 10 at HS PEEP + 5, FIO2 35 %. 2. Nebs qid , duoneb. 3. Antibiotics per ID. 4. T Bar 40 % during the day. 5. Levsin .125 mg tid. 6. Ativan .5 mg q6h prn. 7. Tube feeds at 60 CC 8. Lovenox 40 Mg S/Q daily. Darren Kiser MD Aug 13, 2015 12:07
[2015-08-13] MEDS: HYOSCYAMINE SOLN 0.125 MG/ML 15 ML BTL PO SCH ×2 (15:29→21:04)
--- NOTE | 2015-08-13 20:32 | HHI.CCPN ---
Subjective Remarks/Hospital Course 06/17: Pt is a 54 yr man with multiple medial problems including Parkinson's disease, advanced dementia, hyponatremia, anxiety, pneumonia, GERD, cognitive disorder, and multidrug resistant UTI- ESBL02/19/15 , who resides in a [facility]. Pt by report was found by staff in [facility] to be less alert and having respiratory difficultly and fevers. Pt was brought to ED adn placed on ventilator. His workup was inclusive of labs, chest xray and ct head and abd/pelvis. WBC 16.4, +UTI, lactic acid 4, troponin ,0.02, BUN/ cre 18/ 0.76. CT head 06/18/15: diffuse atrophy unchanged. No acute intracranial findings ct abd/ pelvis with IV contrast: 06/18/15 Conclusion: 1. Chronic nonspecific urinary bladder wall thickening. Bladder collapsed with Putnam catheter in place. 2.Chronic bilateral mid to lower zone groundglass opacity. 3. Nonobstructing left renal calculus. 4. Distended rectum Pt admitted and fluid and abx ordered. 06/18: Drowsy, easily arousable. On mechanical ventilation via tracheostomy. Tachypneic. Resting tremor noted. 06/19: Drowsy, arousable. On mechanical ventilation via tracheostomy. 06/20: Drowsy, arousable. Remains on mechanical ventilation via tracheostomy. We'll repeat blood cultures, UA and urine cultures. Fluconazole IV added in view of yeast in urine. 07/06: Reconsulted as patient return to the ventilator on a right ventricular due to tachypnea. Low-grade temperatures. Tolerating tube feeding. Extremity encephalopathic demented patient with difficult neurological examination. 07/07: Status post chest tube placement by IR for right pneumothorax 07/06. Afebrile. Tolerating tube feeds. Positive BM. Currently tachypneic on the ventilator. Does not appear to be any acute distress. 07/08: Afebrile. Tolerating tube feeding. He is comfortable currently on CPAP trials 11/10. Positive BM. 07/09: Afebrile. Tolerating tube feeding. Appears comfortable on T bar. Positive BM. 07/10: Afebrile. Eyes are open. Remained on T piece overnight. Tolerating tube feeding. 07/11: MAXIMUM TEMPERATURE 100. Currently 98.6. Eyes are open. On ACV overnight secondary to "tachypnea and sweating". Switching back to PSV trials today. Goal is T piece during daytime, CPAP at night. 07/12: No acute events overnight. On PSV 15/5 -attempt TP up to 6 hours today. No pneumothorax on chest x-ray 07/13: Placed back on full ventilator support for tachypnea. Otherwise clinically unchanged. No fever today 07/14: Patient was on T piece yesterday evening, placed back on PSV overnight, patient mechanical ventilation this morning. Patient appears to be struggling with mechanical ventilation. Patient placed back on PSV with improvement 07/15: Patient placed back on mechanical ventilation last evening due to respiratory rate. It was indicated patient was tachypnea can the 40s. Patient on mechanical ventilation this time with respiration rate mid 20s. Chest tube still in place without any output, chest x-ray still indicating resolution of pneumothorax. 07/16: Patient seen and examined today. Patient placed back on mechanical ventilation overnight due to respiratory rate. Even on mechanical ventilation patient has respiration rate in the 30s. Patient afebrile, blood pressure stable. Continue vent weaning 07/17: Patient seen and examined. Currently afebrile. Currently on CPAP 15/5 @ 40%. Patient is awake with open mouth resting in bed in no apparent acute distress. Tolerating tube feeding. 2 bowel movements. 07/18: No neurological changes. Afebrile. 2 bowel moments. Tolerating tube feeding. We'll attempt TP trials today. On CPAP since 07/15 07/19 No events overnight. On CPAP with PS: 10, PEEP: 5 and FIO2 35%. Afebrile. On no sedation. 07/20 No events overnight. Tolerating CPAP. Afebrile. 07/21: Remains on CPAP. Attempt T piece trial today. Afebrile. One bowel movement. Tolerating tube feeding. 07/22: Afebrile. Positive BM. Tolerating tube feeding. Noted switched tracheostomy to #6 Shiley cuffed fenestrated. Neurologically unchanged 07/23: Afebrile. Positive BM. Tolerating tube feeding. Questionable leak in exchange trach. Place back on a rate/ACV overnight. Insufflated seems to be doing better at the present time. Will check chest x-ray. Possible he might need #6 XLT versus replacement of chronic #8 Shiley. 07/24: Tolerating TP today, RR in low 30s patient appears comfortable. No acute events overnight 07/25: Remains off the ventilator more than 36 hours now. Intermittently tachypneic probably breathing. Chest x-ray was clear yesterday. No acute events reported overnight. PEG not functioning per RN 08/02: Patient was transferred back to critical care service due to continuing ventilator management, tachypnea. Patient clinical status with no significant change. Patient with low-grade fever 100.2, 08/03: Patient seen and examined today. No significant change in clinical status. Patient still with chronic tachypnea. Patient afebrile now. 08/04: Patient seen and examined today. No change in clinical status. Patient still continues to have chronic tachypnea. Patient afebrile. Continue vent weaning 08/05: Patient seen and examined today. Patient had chest tube removed yesterday , chest x-ray shows redevelopment of pneumothorax. Chest tube replaced. Otherwise, patient still on ventilator with tachypnea. Afebrile 08/06: Patient seen and examined today. Patient went to have chest tube placed, repeat chest x-ray did not indicate any pneumothorax. No overnight events. We' ll need to pursue LTAC placement 08/07 No events overnight. On ventilator via trach. Afebrile. 08/08 Patient tolerated CPAP x4 hrs yesterday. Afebrile. On no sedation. 08/09 No events overnight. Tolerated CPAP x 12 hrs yesterday. Afebrile. 08/10 Patient tolerated TP's x 12 hrs yesterday back on ACV overnight. 08/11 No events overnight, currently on TP's with 40% FIO2. Afebrile. Subjective: 08/12 On CPAP 11/10. Tolerated Tpiece 3 hours earlier today. Afebrile. Objective - Vital Signs Date Time Temp Pulse Resp B/P Pulse Ox O2 Delivery O2 Flow Rate FiO2 08/13/15 20:12 98 35 08/13/15 18:00 82 08/13/15 16:00 98.7 10 96/58 08/13/15 09:45 T-piece 8.00 Intake and Output 08/12/15 08/12/15 08/13/15 08:00 16:00 00:00 Intake Total 629 ml 789 ml 714 ml Output Total 400 ml 450 ml 800 ml Balance 229 ml 339 ml -86 ml Result Diagram: 08/13/15 0349 08/13/15 0349 Other Results Laboratory Tests Test 08/12/15 07:05 White Blood Count 8.0 TH/MM3 Red Blood Count 3.36 MIL/MM3 Hemoglobin 9.4 GM/DL Hematocrit 29.9 % Mean Corpuscular Volume 89.1 FL Mean Corpuscular Hemoglobin 27.9 PG Mean Corpuscular Hemoglobin 31.3 % Concent Red Cell Distribution Width 13.3 % Platelet Count 196 TH/MM3 Mean Platelet Volume 10.2 FL Neutrophils (%) (Auto) 63.1 % Lymphocytes (%) (Auto) 19.7 % Monocytes (%) (Auto) 6.7 % Eosinophils (%) (Auto) 9.7 % Basophils (%) (Auto) 0.8 % Neutrophils # (Auto) 5.1 TH/MM3 Lymphocytes # (Auto) 1.6 TH/MM3 Monocytes # (Auto) 0.5 TH/MM3 Eosinophils # (Auto) 0.8 TH/MM3 Basophils # (Auto) 0.1 TH/MM3 CBC Comment DIFF FINAL Differential Comment Imaging Last Impressions Chest X-Ray 08/07/15 0600 Signed Impressions: Service Date/Time: Friday, August 07, 2015 04:59 - CONCLUSION: No evidence of pneumothorax. No significant interval change. Ilir Agosto MD Tunnelled Chest Tube Removal 08/05/15 1100 Signed Impressions: Service Date/Time: Wednesday, August 05, 2015 11:00 - CONCLUSION: Uncomplicated chest tube removal. Blaine Jackson MD Chest Tube Change 07/31/15 0000 Signed Impressions: Service Date/Time: Friday, July 31, 2015 14:34 - CONCLUSION: Uncomplicated reposition of previously placed chest tube as above. Blaine Jackson MD Chest Tube Insertion 07/30/15 0000 Signed Impressions: Service Date/Time: July 14:50 - CONCLUSION: Uncomplicated chest tube placement as above. Blaine Jackson MD Catheter Change 07/27/15 0000 Signed Impressions: Service Date/Time: Monday, July 27, 2015 14:43 - CONCLUSION: Uncomplicated gastrostomy tube exchange as above. Blaine Jackson MD Chest CT 07/11/15 0000 Signed Impressions: Service Date/Time: Saturday, July 11, 2015 09:49 - CONCLUSION: Scattered patchy densities significantly improved from previous study. Tiny anterior right basilar pneumothorax. Right-sided chest tube in good position. Néstor Matamoros MD Head CT 06/18/[id number] Signed Impressions: Service Date/Time: June 19:31 - CONCLUSION: Diffuse atrophy unchanged. No acute intracranial findings. Kush Briscoe MD Abdomen/Pelvis CT 06/18/[id number] Signed Impressions: Service Date/Time: June 19:36 - CONCLUSION: 1. Chronic nonspecific urinary bladder wall thickening. Bladder collapsed with Putnam catheter in place. 2. Chronic bilateral mid to lower lung zone groundglass opacity. 3. Nonobstructing left renal calculus. 4. Distended rectum. Kush Briscoe MD Objective Remarks GENERAL: 54-year-old male, cachectic, currently on CPAP HEENT: NC/AT. PERRL. MMM dry and pink. Oropharynx without erythema or thrush NECK: No JVD. status post tracheostomy clean/dry and intact CARDIAC: RRR. S1/S2. No S4. No murmurs, clicks gallops or rubs. LUNGS: Clear to auscultation bilaterally. No wheeze, rhonchi or rales. No use of accessory muscles. ABDOMEN: S/NT/ND. Bowel sounds heard in all 4 quadrants. No organomegaly or masses. No guarding/rigidity/rebound. EXTREMITIES: No significant peripheral edema, pulses are equal bilaterally. NEUROLOGY: Patient with significant contractures of the right lower extremity, upper extremities. Eyes open spontaneously. Muscle wasting face, bilateral upper and lower extremities Procedures 07/26- PEG replacement 07/29- right pigtail catheter placement for new pneumothorax 07/29 Date of Insertion: Jul 30, 2015 A/P Assessment and Plan Neuro/Psych: Toxic metabolic Encephalopathy - chronic Parkinson's disease Cognitive disorder/Underlying dementia Depression CT head 06/18/15: - diffuse atrophy unchanged. No acute intracranial findings Continue Sinemet 25/100 3 times a day via PEG, Seroquel 50 mg twice a day, olanzapine 5 mg a night, Klonopin 2 mg every 8 hours, Paxil 20 daily and Neurontin 300 mg twice a day. These medications have been slowly titrated up since admission Continue Roxanol 5 mg every 4 hours when necessary pain and fentanyl patch 50 g every 3 days for pain management. Resp: Acute on chronic respiratory failure Chronic trach, Pneumonia Right pneumothorax status post pigtail catheter Continue with vent support keep sat >92%. Pulmonary Dr. Restrepo following CPAP trials/TP's as steven. Pulm toilet, trach care. Exchanged from a #8 fenestrated Shiley cuffed tracheostomy to a #6 Shiley fenestrated cuffed on 07/22. Duo nebs 4 times a day and when necessary albuterol. Status post chest tube replacement by interventional radiology on 07/30, chest tube removed 08/04, repeat films do not indicate any pneumothorax Cardiac History of orthostasis History of CAD, HLP, Hypertension Continue Midodrine 5 mg twice a day Monitor HR and BP keep MAP>65mmHg GI: Malnutrition/protein calorie - moderate Status post PEG Hemorrhoids Gastroesophageal reflux disease - Tolerating Jevity 1.5 at 60 cc an hour. - Currently Prevacid 30 mg per PEG tube daily for GERD - Current Colace/senna for bowel regimen. /metabolic: Nonobstructing left renal calculus Hypernatremia - resolved - Monitor renal function, I/O's. electrolytes replacement per protocol. ID: Candiduria ESBL positive Klebsiella/Pseudomonas pneumonia MRSA colonization sepsis Continue with abx per ID ( Merrem)monitor for signs of infections ( Fever, WBC) On lactinex Urine culture: 08/02 Klebsiella pneumonia ESBL positive Urine culture: 08/02 Heena Tropicalis, C. Glabrata Sputum culture: 08/02 Pseudomonas, Klebsiella pneumonia ESBL positive Blood culture: 08/02 yeast species, Heena glabrata, Heena tropicalis - History of Multidrug resistant UTI- ESBL 02/19/15 , MRSA + 03/20/15 - Heena glabrata in urine 03/19/15 - Rechecked blood, sputum and urine cultures 07/06 no growth - 06/17 - blood cultures 2 - CONS/staph epi - 06/17 - sputum - ESBL positive Klebsiella/Pseudomonas Treated 15 days with tobramycin aerosols twice a day. - 06/17 - urine - C. glabrata/tropicalis - treated with Diflucan Endo: --SSI if needed for glycemic control Heme Anemia - Monitor CBC MSK Bilateral lower extremity Contractures Stage II DU - Wound care evaluate and treat - Continue physical therapy Prophylaxis - GI - Prevacid - DVT - SCDs/Lovenox Level 3 Fede,Leena M. MD Aug 13, 2015 20:32 Leena Mistry MD Aug 13, 2015 20:32
[2015-08-13] MEDS: OLANZapine 2.5 MG TAB GT SCH (21:05)
[2015-08-13] MEDS: ENOXAPARIN SODIUM 40 MG/0.4 ML SYRINGE SQ SCH (21:07)
[2015-08-14] VITALS (20 sets, daily range): BP systolic 94–110; BP diastolic 60–72; PULSE 70–95; RESP 14–27; TEMP 97.4–98.4; O2SAT 95–99
[2015-08-14] MEDS: RESP: SODIUM CHLORIDE 3% 4 ML NEB NEB SCH ×2 (03:42→09:15)
[2015-08-14] MEDS: RESP: ALBUTEROL 2.5 MG/IPRATROPIUM 0.5 MG NEB (SCH) NEB ×3 (03:42→19:56)
[2015-08-14] MEDS: CHLORHEXIDINE GLUCONATE 2 % 1 PACK (2 CLOTHS) TOP SCH (04:00)
[2015-08-14] MEDS: MEROPENEM INJ 1,000 MG in SODIUM CHLORIDE 0.9% INJ 100 ML IV SCH ×3 (06:15→21:18)
[2015-08-14] MEDS: CARBIDOPA/LEVODOPA 25 MG/100 MG TAB GT SCH ×3 (06:15→21:18)
[2015-08-14] MEDS: clonazePAM 1 MG TAB PO SCH ×3 (06:15→21:18)
[2015-08-14] MEDS: HYOSCYAMINE SOLN 0.125 MG/ML 15 ML BTL PO SCH ×3 (06:15→21:18)
[2015-08-14] MEDS: ARTIFICIAL TEARS OPTH SOLN 15 ML BTL EACH EYE SCH ×3 (10:05→18:49)
--- NOTE | 2015-08-14 10:05 | HHI.IDPN ---
Subjective Subjective Remarks ID COVERAGE Chart reviewed Mr. Foreman is a 54-year-old male with past medical history significant for Parkinson's disease, advanced dementia, hyponatremia, history of ESBL UTI. Admitted with sepsis. Now with Pneumonia, UTI and staph bacteremia Notes reviewed D/W RN On CPAP Did 3 hours T-piece yesterday Had a lot of secretions this morning Temps ok BP ok Low grade temps yesterday Awake, not following commands UO good Valdze changed 08/02 WBC normal Antibiotics meropenem Lines Line sites with no e/o infection Past Medical History reviewed Allergies: Coded Allergies: *MDRO Multi-Drug Resistant Organism (Verified Adverse Reaction, Unknown, ) ESBL E. coli (urine) - 02/19/2015; ESBL K. pneumoniae (sputum) - 06/18/15, (urine) - 08/03/15, (sputum) - 08/03/15 MRSA PCR POSITIVE - 03/20/2015 Objective . Vital Signs Date Time Temp Pulse Resp B/P Pulse Ox O2 Delivery O2 Flow Rate FiO2 08/14/15 07:50 96 35 08/14/15 07:00 98 Mechanical Ventilator 35 08/14/15 06:00 85 08/14/15 04:04 95 35 08/14/15 04:00 95 08/14/15 04:00 98.3 95 22 110/62 97 08/14/15 04:00 35 08/14/15 02:00 93 08/14/15 00:07 97 35 08/14/15 00:00 81 08/14/15 00:00 35 08/14/15 00:00 98.0 81 14 104/72 97 08/13/15 22:00 65 08/13/15 20:12 98 35 08/13/15 20:00 97.3 79 10 111/76 98 08/13/15 20:00 35 08/13/15 20:00 79 08/13/15 19:00 97 Mechanical Ventilator 35 08/13/15 18:00 82 08/13/15 16:31 98 35 08/13/15 16:00 98.7 82 10 96/58 98 08/13/15 16:00 35 08/13/15 16:00 82 08/13/15 14:00 87 08/13/15 13:18 97 35 08/13/15 12:00 98.5 88 25 129/83 96 08/13/15 12:00 88 08/13/15 12:00 50 08/13/15 08/13/15 08/14/15 15:00 23:00 07:00 Intake Total 770 ml 1365 ml Output Total 450 ml 800 ml Balance 320 ml 565 ml IV Total 156 ml 365 ml Tube Feeding 514 ml 1000 ml Tube Irrigant 100 ml Output Urine Total 450 ml 800 ml # Bowel Movements 1 0 . Laboratory Tests Test 08/13/15 03:49 White Blood Count 8.7 TH/MM3 Red Blood Count 3.24 MIL/MM3 Hemoglobin 9.1 GM/DL Hematocrit 28.9 % Mean Corpuscular Volume 89.0 FL Mean Corpuscular Hemoglobin 28.2 PG Mean Corpuscular Hemoglobin 31.7 % Concent Red Cell Distribution Width 13.3 % Platelet Count 210 TH/MM3 Mean Platelet Volume 9.9 FL Neutrophils (%) (Auto) 67.3 % Lymphocytes (%) (Auto) 17.6 % Monocytes (%) (Auto) 6.5 % Eosinophils (%) (Auto) 7.9 % Basophils (%) (Auto) 0.7 % Neutrophils # (Auto) 5.9 TH/MM3 Lymphocytes # (Auto) 1.5 TH/MM3 Monocytes # (Auto) 0.6 TH/MM3 Eosinophils # (Auto) 0.7 TH/MM3 Basophils # (Auto) 0.1 TH/MM3 CBC Comment DIFF FINAL Differential Comment Laboratory Tests Test 08/13/15 03:49 Sodium Level 141 MEQ/L Potassium Level 4.1 MEQ/L Chloride Level 100 MEQ/L Carbon Dioxide Level 38.6 MEQ/L Anion Gap 2 MEQ/L Blood Urea Nitrogen 18 MG/DL Creatinine 0.38 MG/DL Estimat Glomerular Filtration 240 ML/MIN Rate Random Glucose 98 MG/DL Calcium Level 9.2 MG/DL Magnesium Level 2.1 MG/DL Imaging Chest X-Ray 08/07/15 0600 Signed Impressions: Service Date/Time: Friday, August 07, 2015 04:59 - CONCLUSION: No evidence of pneumothorax. No significant interval change. Ilir Agosto MD Tunnelled Chest Tube Removal 08/05/15 1100 Signed Impressions: Service Date/Time: Wednesday, August 05, 2015 11:00 - CONCLUSION: Uncomplicated chest tube removal. Blaine Jackson MD Chest Tube Change 07/31/15 Signed Impressions: Service Date/Time: Friday, July 31, 2015 14:34 - CONCLUSION: Uncomplicated reposition of previously placed chest tube as above. Blaine Jackson MD Chest Tube Insertion 07/30/15 0000 Signed Impressions: Service Date/Time: July 14:50 - CONCLUSION: Uncomplicated chest tube placement as above. Blaine Jackson MD Catheter Change 07/27/15 Signed Impressions: Service Date/Time: Monday, July 27, 2015 14:43 - CONCLUSION: Uncomplicated gastrostomy tube exchange as above. Blaine Jackson MD Chest CT 07/11/15 Signed Impressions: Service Date/Time: Saturday, July 11, 2015 09:49 - CONCLUSION: Scattered patchy densities significantly improved from previous study. Tiny anterior right basilar pneumothorax. Right-sided chest tube in good position. Néstor Matamoros MD Head CT 06/18/151902 Signed Impressions: Service Date/Time: June 19:31 - CONCLUSION: Diffuse atrophy unchanged. No acute intracranial findings. Kush Briscoe MD Abdomen/Pelvis CT 06/18/151902 Signed Impressions: Service Date/Time: June 19:36 - CONCLUSION: 1. Chronic nonspecific urinary bladder wall thickening. Bladder collapsed with Valdez catheter in place. 2. Chronic bilateral mid to lower lung zone groundglass opacity. 3. Nonobstructing left renal calculus. 4. Distended rectum. Kush Briscoe MD Physical Exam GENERAL: Awake, not following, looks comfortable on CPAP SKIN: No generalized rashes. Cool and dry. HEENT: [place] conjunctivae, no icterus, moist mucosa NECK: Trach site with no evidence of infection. CARDIOVASCULAR: No murmur appreciated. RESPIRATORY: Coarse BS razia, decreased at bases GASTROINTESTINAL: Abdomen soft, non-tender, mildly distended. PEG tube site with no evidence of infection. MUSCULOSKELETAL: Increased tone in all extremities. Rigidity noted. NEUROLOGICAL: Opens eyes spontaneously. No verbal response does, not follow commands. Peripheral IV line sites with no evidence of infection. ; Valdez in place, urine looks clear Assessment & Plan Remarks Acute tracheobronchitis. ESBL Kleb pneumo and PSAE. Chest x-ray is negative, sputum purulent Acute on chronic respiratory failure was on trach and had to be placed on ventilator. - on T-piece currently, lokks dyspneic Acute encephalopathy sepsis but has an underlying diagnosis of advanced dementia as well as advanced Parkinson's disease. Prior history of ESBL UTI - UC now with low colony count yeast and PSAE, valdez changed Urine Cx first one from old valdez with ESBL: likely colonization. Funguria likely colonization. Not being treated and clinically improved. Prior history of MRSA colonization. Status post trach Status post gastrostomy tube with no evidence of infection. Stage II sacral decubitus ulcer present on admission. Recommendations Continue meropenem to cover both ESBL and PSAE x 10-14 days - anticipated end date August 19 Monitor progress Monitor temps Weaning per [facility] D/W RN D/W Dr Mistry ([facility]) Bhavna Weeks MD Aug 14, 2015 10:05
[2015-08-14] MEDS: CHLORHEXIDINE 0.12% (ORAL KIT) 15 ML CUP MT SCH ×2 (10:07→20:39)
[2015-08-14] MEDS: PARoxetine HCL 20 MG TAB G-TUBE SCH (10:09)
[2015-08-14] MEDS: MIDODRINE 5 MG TAB G-TUBE SCH ×2 (10:09→20:39)
[2015-08-14] MEDS: SENNOSIDES SYRUP 8.8 MG/5 ML CUP PO SCH (10:09)
[2015-08-14] MEDS: LANSOPRAZOLE SOLUTAB 30 MG TAB NG SCH (10:09)
[2015-08-14] MEDS: LACTOBACILLUS ACIDOPHILUS TAB PO SCH ×3 (10:09→18:48)
[2015-08-14] MEDS: GABAPENTIN 300 MG CAP G-TUBE SCH ×2 (10:09→20:38)
[2015-08-14] MEDS: QUEtiapine FUMARATE 25 MG TAB G-TUBE SCH ×2 (10:09→20:39)
[2015-08-14] MEDS: SODIUM CHLORIDE 0.9% FLUSH 5 ML FLUSH IVF SCH ×2 (10:10→20:38)
--- NOTE | 2015-08-14 12:43 | HHI.PR ---
Subjective Remarks No change and on CPAP today. tachypneic . Sat 96 on 35 %. Output was OK. Lethargic. Objective Vital Signs Date Time Temp Pulse Resp B/P Pulse Ox O2 Delivery O2 Flow Rate FiO2 08/14/15 10:19 98 35 08/14/15 08:00 35 08/14/15 08:00 98.1 80 20 109/70 97 08/14/15 07:50 96 35 08/14/15 07:00 98 Mechanical Ventilator 35 08/14/15 06:00 85 08/14/15 04:04 95 35 08/14/15 04:00 95 08/14/15 04:00 98.3 95 22 110/62 97 08/14/15 04:00 35 08/14/15 02:00 93 08/14/15 00:07 97 35 08/14/15 00:00 81 08/14/15 00:00 35 08/14/15 00:00 98.0 81 14 104/72 97 08/13/15 22:00 65 08/13/15 20:12 98 35 08/13/15 20:00 97.3 79 10 111/76 98 08/13/15 20:00 35 08/13/15 20:00 79 08/13/15 19:00 97 Mechanical Ventilator 35 08/13/15 18:00 82 08/13/15 16:31 98 35 08/13/15 16:00 98.7 82 10 96/58 98 08/13/15 16:00 35 08/13/15 16:00 82 08/13/15 14:00 87 08/13/15 13:18 97 35 I/O 08/13/15 08/13/15 08/13/15 08/14/15 08/14/15 08/14/15 07:00 15:00 23:00 07:00 15:00 23:00 Intake Total 667 ml 770 ml 1365 ml Output Total 750 ml 450 ml 800 ml Balance -83 ml 320 ml 565 ml Intake Oral 0 ml IV Total 197 ml 156 ml 365 ml Tube Feeding 430 ml 514 ml 1000 ml Tube Irrigant 40 ml 100 ml Output Urine Total 750 ml 450 ml 800 ml # Bowel Movements 0 1 0 Result Diagram: 08/13/15 0349 08/13/15 0349 Objective Remarks This is a thin white male who in on the vent with a trach tube in place. HEENT: Pupils are equal and reactive to light.Throat is clear. CHEST: Bilateral wheeze with occ crackles. Decreased breath sounds . CARDIOVASCULAR: S1 and S2 is normal. ABDOMEN: Soft, nondistended. He has a PEG tube in place. EXTREMITIES: No edema.muscle wasting. NEURO: Lethargic and Does not move his extremities . Assessment and Plan Assessment and Plan IMPRESSION 1. Respiratory failure, ventilator dependent 2. Sepsis 3. UTI 4. Tracheobronchitis 5. Parkinson's disease 6. Dementia. 7. Severe Deconditioning. 8. Left Pneumothorax. Recurrent Plan : 1. A/C rate 10 at HS PEEP + 5, FIO2 35 %. 2. Nebs qid , duoneb. 3. Antibiotics per ID. 4. T Bar 40 % during the day. 5. Levsin .125 mg tid. 6. Ativan .5 mg q6h prn. 7. Cont Tube feeds at 60 CC 8. Lovenox 40 Mg S/Q daily. 9. Labs Monday. Darren Kiser MD Aug 14, 2015 12:43
--- NOTE | 2015-08-14 15:10 | HHI.CCPN ---
Subjective Remarks/Hospital Course 06/17: Pt is a 54 yr man with multiple medial problems including Parkinson's disease, advanced dementia, hyponatremia, anxiety, pneumonia, GERD, cognitive disorder, and multidrug resistant UTI- ESBL02/19/15 , who resides in a [facility]. Pt by report was found by staff in [facility] to be less alert and having respiratory difficultly and fevers. Pt was brought to ED adn placed on ventilator. His workup was inclusive of labs, chest xray and ct head and abd/pelvis. WBC 16.4, +UTI, lactic acid 4, troponin ,0.02, BUN/ cre 18/ 0.76. CT head 06/18/15: diffuse atrophy unchanged. No acute intracranial findings ct abd/ pelvis with IV contrast: 06/18/15 Conclusion: 1. Chronic nonspecific urinary bladder wall thickening. Bladder collapsed with Putnam catheter in place. 2.Chronic bilateral mid to lower zone groundglass opacity. 3. Nonobstructing left renal calculus. 4. Distended rectum Pt admitted and fluid and abx ordered. 06/18: Drowsy, easily arousable. On mechanical ventilation via tracheostomy. Tachypneic. Resting tremor noted. 06/19: Drowsy, arousable. On mechanical ventilation via tracheostomy. 06/20: Drowsy, arousable. Remains on mechanical ventilation via tracheostomy. We'll repeat blood cultures, UA and urine cultures. Fluconazole IV added in view of yeast in urine. 07/06: Reconsulted as patient return to the ventilator on a right ventricular due to tachypnea. Low-grade temperatures. Tolerating tube feeding. Extremity encephalopathic demented patient with difficult neurological examination. 07/07: Status post chest tube placement by IR for right pneumothorax 07/06. Afebrile. Tolerating tube feeds. Positive BM. Currently tachypneic on the ventilator. Does not appear to be any acute distress. 07/08: Afebrile. Tolerating tube feeding. He is comfortable currently on CPAP trials 11/10. Positive BM. 07/09: Afebrile. Tolerating tube feeding. Appears comfortable on T bar. Positive BM. 07/10: Afebrile. Eyes are open. Remained on T piece overnight. Tolerating tube feeding. 07/11: MAXIMUM TEMPERATURE 100. Currently 98.6. Eyes are open. On ACV overnight secondary to "tachypnea and sweating". Switching back to PSV trials today. Goal is T piece during daytime, CPAP at night. 07/12: No acute events overnight. On PSV 15/5 -attempt TP up to 6 hours today. No pneumothorax on chest x-ray 07/13: Placed back on full ventilator support for tachypnea. Otherwise clinically unchanged. No fever today 07/14: Patient was on T piece yesterday evening, placed back on PSV overnight, patient mechanical ventilation this morning. Patient appears to be struggling with mechanical ventilation. Patient placed back on PSV with improvement 07/15: Patient placed back on mechanical ventilation last evening due to respiratory rate. It was indicated patient was tachypnea can the 40s. Patient on mechanical ventilation this time with respiration rate mid 20s. Chest tube still in place without any output, chest x-ray still indicating resolution of pneumothorax. 07/16: Patient seen and examined today. Patient placed back on mechanical ventilation overnight due to respiratory rate. Even on mechanical ventilation patient has respiration rate in the 30s. Patient afebrile, blood pressure stable. Continue vent weaning 07/17: Patient seen and examined. Currently afebrile. Currently on CPAP 15/5 @ 40%. Patient is awake with open mouth resting in bed in no apparent acute distress. Tolerating tube feeding. 2 bowel movements. 07/18: No neurological changes. Afebrile. 2 bowel moments. Tolerating tube feeding. We'll attempt TP trials today. On CPAP since 07/15 07/19 No events overnight. On CPAP with PS: 10, PEEP: 5 and FIO2 35%. Afebrile. On no sedation. 07/20 No events overnight. Tolerating CPAP. Afebrile. 07/21: Remains on CPAP. Attempt T piece trial today. Afebrile. One bowel movement. Tolerating tube feeding. 07/22: Afebrile. Positive BM. Tolerating tube feeding. Noted switched tracheostomy to #6 Shiley cuffed fenestrated. Neurologically unchanged 07/23: Afebrile. Positive BM. Tolerating tube feeding. Questionable leak in exchange trach. Place back on a rate/ACV overnight. Insufflated seems to be doing better at the present time. Will check chest x-ray. Possible he might need #6 XLT versus replacement of chronic #8 Shiley. 07/24: Tolerating TP today, RR in low 30s patient appears comfortable. No acute events overnight 07/25: Remains off the ventilator more than 36 hours now. Intermittently tachypneic probably breathing. Chest x-ray was clear yesterday. No acute events reported overnight. PEG not functioning per RN 08/02: Patient was transferred back to critical care service due to continuing ventilator management, tachypnea. Patient clinical status with no significant change. Patient with low-grade fever 100.2, 08/03: Patient seen and examined today. No significant change in clinical status. Patient still with chronic tachypnea. Patient afebrile now. 08/04: Patient seen and examined today. No change in clinical status. Patient still continues to have chronic tachypnea. Patient afebrile. Continue vent weaning 08/05: Patient seen and examined today. Patient had chest tube removed yesterday , chest x-ray shows redevelopment of pneumothorax. Chest tube replaced. Otherwise, patient still on ventilator with tachypnea. Afebrile 08/06: Patient seen and examined today. Patient went to have chest tube placed, repeat chest x-ray did not indicate any pneumothorax. No overnight events. We' ll need to pursue LTAC placement 08/07 No events overnight. On ventilator via trach. Afebrile. 08/08 Patient tolerated CPAP x4 hrs yesterday. Afebrile. On no sedation. 08/09 No events overnight. Tolerated CPAP x 12 hrs yesterday. Afebrile. 08/10 Patient tolerated TP's x 12 hrs yesterday back on ACV overnight. 08/11 No events overnight, currently on TP's with 40% FIO2. Afebrile. 08/12 On CPAP /5. Tolerated Tpiece 3 hours earlier today. Afebrile. Subjective: 08/13 On CPAP 10/5. Not tolerating CPAP as well over last few days and RT notes challenge with suctioning respiratory secretions adequately. Discussing with healthcare proxy regarding exchange trach to 8.0. Objective - Vital Signs Date Time Temp Pulse Resp B/P Pulse Ox O2 Delivery O2 Flow Rate FiO2 08/14/15 13:09 97 35 08/14/15 12:00 97.4 79 16 94/60 08/14/15 07:00 Mechanical Ventilator 08/13/15 09:45 8.00 Intake and Output 08/13/15 08/13/15 08/14/15 08:00 16:00 00:00 Intake Total 667 ml 770 ml Output Total 750 ml 450 ml Balance -83 ml 320 ml Result Diagram: 08/13/15 0349 08/13/15 0349 Other Results Laboratory Tests Test 08/12/15 07:05 White Blood Count 8.0 TH/MM3 Red Blood Count 3.36 MIL/MM3 Hemoglobin 9.4 GM/DL Hematocrit 29.9 % Mean Corpuscular Volume 89.1 FL Mean Corpuscular Hemoglobin 27.9 PG Mean Corpuscular Hemoglobin 31.3 % Concent Red Cell Distribution Width 13.3 % Platelet Count 196 TH/MM3 Mean Platelet Volume 10.2 FL Neutrophils (%) (Auto) 63.1 % Lymphocytes (%) (Auto) 19.7 % Monocytes (%) (Auto) 6.7 % Eosinophils (%) (Auto) 9.7 % Basophils (%) (Auto) 0.8 % Neutrophils # (Auto) 5.1 TH/MM3 Lymphocytes # (Auto) 1.6 TH/MM3 Monocytes # (Auto) 0.5 TH/MM3 Eosinophils # (Auto) 0.8 TH/MM3 Basophils # (Auto) 0.1 TH/MM3 CBC Comment DIFF FINAL Differential Comment Imaging Last Impressions Chest X-Ray 08/07/15 0600 Signed Impressions: Service Date/Time: Friday, August 07, 2015 04:59 - CONCLUSION: No evidence of pneumothorax. No significant interval change. Ilir Agosto MD Tunnelled Chest Tube Removal 08/05/15 1100 Signed Impressions: Service Date/Time: Wednesday, August 05, 2015 11:00 - CONCLUSION: Uncomplicated chest tube removal. Blaine Jackson MD Chest Tube Change 07/31/15 0000 Signed Impressions: Service Date/Time: Friday, July 31, 2015 14:34 - CONCLUSION: Uncomplicated reposition of previously placed chest tube as above. Blaine Jackson MD Chest Tube Insertion 07/30/15 0000 Signed Impressions: Service Date/Time: July 14:50 - CONCLUSION: Uncomplicated chest tube placement as above. Blaine Jackson MD Catheter Change 07/27/15 0000 Signed Impressions: Service Date/Time: Monday, July 27, 2015 14:43 - CONCLUSION: Uncomplicated gastrostomy tube exchange as above. Blaine Jackson MD Chest CT 07/11/15 0000 Signed Impressions: Service Date/Time: Saturday, July 11, 2015 09:49 - CONCLUSION: Scattered patchy densities significantly improved from previous study. Tiny anterior right basilar pneumothorax. Right-sided chest tube in good position. Néstor Matamoros MD Head CT 06/18/151902 Signed Impressions: Service Date/Time: June 19:31 - CONCLUSION: Diffuse atrophy unchanged. No acute intracranial findings. Kush Briscoe MD Abdomen/Pelvis CT 06/18/151902 Signed Impressions: Service Date/Time: , June 18, 2015 19:36 - CONCLUSION: 1. Chronic nonspecific urinary bladder wall thickening. Bladder collapsed with Putnam catheter in place. 2. Chronic bilateral mid to lower lung zone groundglass opacity. 3. Nonobstructing left renal calculus. 4. Distended rectum. Kush Briscoe MD Objective Remarks GENERAL: 54-year-old male, cachectic, currently on CPAP HEENT: NC/AT. PERRL. MMM dry and pink. NECK: No JVD. 6.[address] without exudate. CARDIAC: RRR. S1/S2. No S4. No murmurs, clicks gallops or rubs. LUNGS: Tachypneic but Clear to auscultation bilaterally without accessory muscle use. No wheezes rale or rhonchi. ABDOMEN: S/NT/ND. Bowel sounds heard in all 4 quadrants. No organomegaly or masses. No guarding/rigidity/rebound. EXTREMITIES: No significant peripheral edema, pulses are equal bilaterally. NEUROLOGY: Patient with significant contractures of the right lower extremity, upper extremities. Eyes open spontaneously. Muscle wasting face, bilateral upper and lower extremities Procedures 07/26- PEG replacement 07/29- right pigtail catheter placement for new pneumothorax 07/29 Date of Insertion: Jul 30, 2015 A/P Assessment and Plan Neuro/Psych: Toxic metabolic Encephalopathy - chronic Parkinson's disease Cognitive disorder/Underlying dementia Depression CT head 06/18/15: - diffuse atrophy unchanged. No acute intracranial findings Continue Sinemet 25/100 3 times a day via PEG, Seroquel 50 mg twice a day, olanzapine 5 mg a night, Klonopin 2 mg every 8 hours, Paxil 20 daily and Neurontin 300 mg twice a day. These medications have been slowly titrated up since admission Continue Roxanol 5 mg every 4 hours when necessary pain and fentanyl patch 50 g every 3 days for pain management. Resp: Acute on chronic respiratory failure Chronic trach, Pneumonia Right pneumothorax status post pigtail catheter (resolved) Continue with vent support keep sat >92%. Pulmonary Dr. Restrepo following CPAP trials/TP's as steven. Pulm toilet, trach care. Exchanged from a #8 fenestrated Shiley cuffed tracheostomy to a #6 Shiley fenestrated cuffed on 07/22. Appears would benefit from larger caliber trach to facilitate trach care and decrease airway resistance. Discussing with healthcare proxy. Duo nebs every 6 hours when necessary Status post chest tube replacement by interventional radiology on 07/30, chest tube removed 08/04, repeat films do not indicate any pneumothorax Cardiac History of orthostasis History of CAD, HLP, Hypertension Continue Midodrine 5 mg twice a day Monitor HR and BP keep MAP>65mmHg GI: Malnutrition/protein calorie - moderate Status post PEG Hemorrhoids Gastroesophageal reflux disease - Tolerating Jevity 1.5 at 60 cc an hour per nutrition recommendations - Currently Prevacid 30 mg per PEG tube daily for GERD - Current Colace/senna for bowel regimen. FEN/renal: Nonobstructing left renal calculus Hypernatremia - resolved - Monitor renal function, I/O's. electrolytes replacement per protocol. ID: Candiduria ESBL positive Klebsiella/Pseudomonas pneumonia MRSA colonization sepsis UTI Klebsiella ESBL positive (has been treated) Continue with abx per ID ( Merrem)monitor for signs of infections ( Fever, WBC) On lactinex Urine culture: 08/02 Klebsiella pneumonia ESBL positive Urine culture: 08/02 Heena Tropicalis, C. Glabrata Sputum culture: 08/02 Pseudomonas, Klebsiella pneumonia ESBL positive Blood culture: 08/02 yeast species, Heena glabrata, Heena tropicalis - History of Multidrug resistant UTI- ESBL 02/19/15 , MRSA + 03/20/15 - Heena glabrata in urine 03/19/15 - Rechecked blood, sputum and urine cultures 07/06 no growth - 06/17 - blood cultures 2 - CONS/staph epi - 06/17 - sputum - ESBL positive Klebsiella/Pseudomonas Treated 15 days with tobramycin aerosols twice a day. - 06/17 - urine - C. glabrata/tropicalis - treated with Diflucan Endo: Euglycemic. Not requiring sliding scale Heme Anemia - Monitor CBC as needed MSK Bilateral lower extremity Contractures Stage II sacral decubitus present on admission - Wound care evaluate and treat - Continue physical therapy Prophylaxis - GI - Prevacid - DVT - SCDs/Lovenox. Lovenox on hold for now pending tracheostomy upsize Daughter, Radha Foreman, updated by telephone. Discussed need for upsize trach. Multiple questions answered. She has not consented at this time and states she will call back and let me know. Level III Leena Mistry MD Aug 14, 2015 15:10
[2015-08-14] MEDS: RESP: ALBUTEROL 2.5 MG/3 ML NEB (PRN) INH (15:33)
[2015-08-14] MEDS ORDERED: MIDAZOLAM HCL 2 MG/2 ML VIAL IV PUSH ONE (16:00)
[2015-08-14] MEDS ORDERED: VECURONIUM BROMIDE 10 MG VIAL IV PUSH ONE (16:00)
[2015-08-14] MEDS ORDERED: fentaNYL CITRATE 250 MCG/5 ML AMP IV PUSH ONE (16:00)
[2015-08-14] MEDS ORDERED: ETOMIDATE 20 MG/10 ML VIAL IV PUSH ONE (16:00)
[2015-08-14] MEDS ORDERED: RESP: ALBUTEROL 2.5 MG/IPRATROPIUM 0.5 MG NEB (SCH) NEB (20:00)
[2015-08-14] MEDS: OLANZapine 2.5 MG TAB GT SCH (20:39)
[2015-08-15] VITALS (20 sets, daily range): BP systolic 102–132; BP diastolic 60–94; PULSE 75–94; RESP 18–23; TEMP 98.1–100.1; O2SAT 92–100
[2015-08-15] MEDS: RESP: ALBUTEROL 2.5 MG/IPRATROPIUM 0.5 MG NEB (SCH) NEB ×4 (03:59→20:36)
[2015-08-15] MEDS: CHLORHEXIDINE GLUCONATE 2 % 1 PACK (2 CLOTHS) TOP SCH (04:00)
[2015-08-15] MEDS: clonazePAM 1 MG TAB PO SCH ×3 (05:47→22:13)
[2015-08-15] MEDS: CARBIDOPA/LEVODOPA 25 MG/100 MG TAB GT SCH ×3 (05:47→21:19)
[2015-08-15] MEDS: HYOSCYAMINE SOLN 0.125 MG/ML 15 ML BTL PO SCH ×3 (05:47→22:13)
[2015-08-15] MEDS: MEROPENEM INJ 1,000 MG in SODIUM CHLORIDE 0.9% INJ 100 ML IV SCH ×3 (05:47→22:14)
[2015-08-15] MEDS: CHLORHEXIDINE 0.12% (ORAL KIT) 15 ML CUP MT SCH ×2 (08:00→20:22)
[2015-08-15] MEDS: LANSOPRAZOLE SOLUTAB 30 MG TAB NG SCH (09:00)
[2015-08-15] MEDS: SODIUM CHLORIDE 0.9% FLUSH 5 ML FLUSH IVF SCH ×2 (09:00→20:22)
[2015-08-15] MEDS: GABAPENTIN 300 MG CAP G-TUBE SCH ×2 (09:53→21:18)
[2015-08-15] MEDS: SENNOSIDES SYRUP 8.8 MG/5 ML CUP PO SCH (09:53)
[2015-08-15] MEDS: QUEtiapine FUMARATE 25 MG TAB G-TUBE SCH ×2 (09:54→21:19)
[2015-08-15] MEDS: ARTIFICIAL TEARS OPTH SOLN 15 ML BTL EACH EYE SCH ×3 (09:54→18:00)
[2015-08-15] MEDS: PARoxetine HCL 20 MG TAB G-TUBE SCH (09:54)
[2015-08-15] MEDS: LACTOBACILLUS ACIDOPHILUS TAB PO SCH ×3 (09:54→18:00)
[2015-08-15] MEDS: MIDODRINE 5 MG TAB G-TUBE SCH ×2 (09:54→21:19)
--- NOTE | 2015-08-15 15:09 | HHI.CCPN ---
Subjective Remarks/Hospital Course 06/17: Pt is a 54 yr man with multiple medial problems including Parkinson's disease, advanced dementia, hyponatremia, anxiety, pneumonia, GERD, cognitive disorder, and multidrug resistant UTI- ESBL02/19/15 , who resides in a [facility]. Pt by report was found by staff in [facility] to be less alert and having respiratory difficultly and fevers. Pt was brought to ED adn placed on ventilator. His workup was inclusive of labs, chest xray and ct head and abd/pelvis. WBC 16.4, +UTI, lactic acid 4, troponin ,0.02, BUN/ cre 18/ 0.76. CT head 06/18/15: diffuse atrophy unchanged. No acute intracranial findings ct abd/ pelvis with IV contrast: 06/18/15 Conclusion: 1. Chronic nonspecific urinary bladder wall thickening. Bladder collapsed with Putnam catheter in place. 2.Chronic bilateral mid to lower zone groundglass opacity. 3. Nonobstructing left renal calculus. 4. Distended rectum Pt admitted and fluid and abx ordered. 06/18: Drowsy, easily arousable. On mechanical ventilation via tracheostomy. Tachypneic. Resting tremor noted. 06/19: Drowsy, arousable. On mechanical ventilation via tracheostomy. 06/20: Drowsy, arousable. Remains on mechanical ventilation via tracheostomy. We'll repeat blood cultures, UA and urine cultures. Fluconazole IV added in view of yeast in urine. 07/06: Reconsulted as patient return to the ventilator on a right ventricular due to tachypnea. Low-grade temperatures. Tolerating tube feeding. Extremity encephalopathic demented patient with difficult neurological examination. 07/07: Status post chest tube placement by IR for right pneumothorax 07/06. Afebrile. Tolerating tube feeds. Positive BM. Currently tachypneic on the ventilator. Does not appear to be any acute distress. 07/08: Afebrile. Tolerating tube feeding. He is comfortable currently on CPAP trials 11/10. Positive BM. 07/09: Afebrile. Tolerating tube feeding. Appears comfortable on T bar. Positive BM. 07/10: Afebrile. Eyes are open. Remained on T piece overnight. Tolerating tube feeding. 07/11: MAXIMUM TEMPERATURE 100. Currently 98.6. Eyes are open. On ACV overnight secondary to "tachypnea and sweating". Switching back to PSV trials today. Goal is T piece during daytime, CPAP at night. 07/12: No acute events overnight. On PSV 15/5 -attempt TP up to 6 hours today. No pneumothorax on chest x-ray 07/13: Placed back on full ventilator support for tachypnea. Otherwise clinically unchanged. No fever today 07/14: Patient was on T piece yesterday evening, placed back on PSV overnight, patient mechanical ventilation this morning. Patient appears to be struggling with mechanical ventilation. Patient placed back on PSV with improvement 07/15: Patient placed back on mechanical ventilation last evening due to respiratory rate. It was indicated patient was tachypnea can the 40s. Patient on mechanical ventilation this time with respiration rate mid 20s. Chest tube still in place without any output, chest x-ray still indicating resolution of pneumothorax. 07/16: Patient seen and examined today. Patient placed back on mechanical ventilation overnight due to respiratory rate. Even on mechanical ventilation patient has respiration rate in the 30s. Patient afebrile, blood pressure stable. Continue vent weaning 07/17: Patient seen and examined. Currently afebrile. Currently on CPAP 15/5 @ 40%. Patient is awake with open mouth resting in bed in no apparent acute distress. Tolerating tube feeding. 2 bowel movements. 07/18: No neurological changes. Afebrile. 2 bowel moments. Tolerating tube feeding. We'll attempt TP trials today. On CPAP since 07/15 07/19 No events overnight. On CPAP with PS: 10, PEEP: 5 and FIO2 35%. Afebrile. On no sedation. 07/20 No events overnight. Tolerating CPAP. Afebrile. 07/21: Remains on CPAP. Attempt T piece trial today. Afebrile. One bowel movement. Tolerating tube feeding. 07/22: Afebrile. Positive BM. Tolerating tube feeding. Noted switched tracheostomy to #6 Shiley cuffed fenestrated. Neurologically unchanged 07/23: Afebrile. Positive BM. Tolerating tube feeding. Questionable leak in exchange trach. Place back on a rate/ACV overnight. Insufflated seems to be doing better at the present time. Will check chest x-ray. Possible he might need #6 XLT versus replacement of chronic #8 Shiley. 07/24: Tolerating TP today, RR in low 30s patient appears comfortable. No acute events overnight 07/25: Remains off the ventilator more than 36 hours now. Intermittently tachypneic probably breathing. Chest x-ray was clear yesterday. No acute events reported overnight. PEG not functioning per RN 08/02: Patient was transferred back to critical care service due to continuing ventilator management, tachypnea. Patient clinical status with no significant change. Patient with low-grade fever 100.2, 08/03: Patient seen and examined today. No significant change in clinical status. Patient still with chronic tachypnea. Patient afebrile now. 08/04: Patient seen and examined today. No change in clinical status. Patient still continues to have chronic tachypnea. Patient afebrile. Continue vent weaning 08/05: Patient seen and examined today. Patient had chest tube removed yesterday , chest x-ray shows redevelopment of pneumothorax. Chest tube replaced. Otherwise, patient still on ventilator with tachypnea. Afebrile 08/06: Patient seen and examined today. Patient went to have chest tube placed, repeat chest x-ray did not indicate any pneumothorax. No overnight events. We' ll need to pursue LTAC placement 08/07 No events overnight. On ventilator via trach. Afebrile. 08/08 Patient tolerated CPAP x4 hrs yesterday. Afebrile. On no sedation. 08/09 No events overnight. Tolerated CPAP x 12 hrs yesterday. Afebrile. 08/10 Patient tolerated TP's x 12 hrs yesterday back on ACV overnight. 08/11 No events overnight, currently on TP's with 40% FIO2. Afebrile. 08/12 On CPAP 10/5. Tolerated Tpiece 3 hours earlier today. Afebrile. 08/13 On CPAP 10/5. Not tolerating CPAP as well over last few days and RT notes challenge with suctioning respiratory secretions adequately. Discussing with healthcare proxy regarding exchange trach to 8.0. Subjective: 08/14 Nursing and RT staff having continued difficulty suctioning respiratory secretions via 6.0 tracheostomy. KAREN Garcia did not consent to stoma dilation and trach upsize yesterday but said she would call back and let me know but no return call. Contacted again today and left a message. Afebrile. On CPAP 10/5. Brow furrowing on exam, appears to be in pain but pain not localizable. Tolerating tube feeds, had BM yesterday Objective - Vital Signs Date Time Temp Pulse Resp B/P Pulse Ox O2 Delivery O2 Flow Rate FiO2 08/15/15 12:00 35 08/15/15 12:00 98.3 75 22 132/80 95 08/15/15 07:15 Mechanical Ventilator 08/13/15 09:45 8.00 Intake and Output 08/14/15 08/14/15 08/15/15 08:00 16:00 00:00 Intake Total 1365 ml 900 ml 500 ml Output Total 800 ml 500 ml 225 ml Balance 565 ml 400 ml 275 ml Result Diagram: 08/13/15 0349 08/13/15 0349 Other Results Laboratory Tests Test 08/12/15 07:05 White Blood Count 8.0 TH/MM3 Red Blood Count 3.36 MIL/MM3 Hemoglobin 9.4 GM/DL Hematocrit 29.9 % Mean Corpuscular Volume 89.1 FL Mean Corpuscular Hemoglobin 27.9 PG Mean Corpuscular Hemoglobin 31.3 % Concent Red Cell Distribution Width 13.3 % Platelet Count 196 TH/MM3 Mean Platelet Volume 10.2 FL Neutrophils (%) (Auto) 63.1 % Lymphocytes (%) (Auto) 19.7 % Monocytes (%) (Auto) 6.7 % Eosinophils (%) (Auto) 9.7 % Basophils (%) (Auto) 0.8 % Neutrophils # (Auto) 5.1 TH/MM3 Lymphocytes # (Auto) 1.6 TH/MM3 Monocytes # (Auto) 0.5 TH/MM3 Eosinophils # (Auto) 0.8 TH/MM3 Basophils # (Auto) 0.1 TH/MM3 CBC Comment DIFF FINAL Differential Comment Imaging Last Impressions Chest X-Ray 08/07/15 0600 Signed Impressions: Service Date/Time: Friday, August 07, 2015 04:59 - CONCLUSION: No evidence of pneumothorax. No significant interval change. Ilir Agosto MD Tunnelled Chest Tube Removal 08/05/15 1100 Signed Impressions: Service Date/Time: Wednesday, August 05, 2015 11:00 - CONCLUSION: Uncomplicated chest tube removal. Blaine Jackson MD Chest Tube Change 07/31/15 0000 Signed Impressions: Service Date/Time: Friday, July 31, 2015 14:34 - CONCLUSION: Uncomplicated reposition of previously placed chest tube as above. Blaine Jackson MD Chest Tube Insertion 07/30/15 0000 Signed Impressions: Service Date/Time: July 14:50 - CONCLUSION: Uncomplicated chest tube placement as above. Blaine Jackson MD Catheter Change 07/27/15 0000 Signed Impressions: Service Date/Time: Monday, July 27, 2015 14:43 - CONCLUSION: Uncomplicated gastrostomy tube exchange as above. Blaine Jackson MD Chest CT 07/11/15 Signed Impressions: Service Date/Time: Saturday, July 11, 2015 09:49 - CONCLUSION: Scattered patchy densities significantly improved from previous study. Tiny anterior right basilar pneumothorax. Right-sided chest tube in good position. Néstor Matamoros MD Head CT 06/18/151902 Signed Impressions: Service Date/Time: June 19:31 - CONCLUSION: Diffuse atrophy unchanged. No acute intracranial findings. Kush Briscoe MD Abdomen/Pelvis CT 06/18/151902 Signed Impressions: Service Date/Time: June 19:36 - CONCLUSION: 1. Chronic nonspecific urinary bladder wall thickening. Bladder collapsed with Putnam catheter in place. 2. Chronic bilateral mid to lower lung zone groundglass opacity. 3. Nonobstructing left renal calculus. 4. Distended rectum. Kush Briscoe MD Objective Remarks GENERAL: 54-year-old male, cachectic, currently on CPAP HEENT: NC/AT. PERRL. MMM dry and pink. NECK: No JVD. 6.[address] without exudate. CARDIAC: RRR. S1/S2. No S4. No murmurs, clicks gallops or rubs. LUNGS: Tachypneic with bilateral rhonchi, no wheeze. ABDOMEN: S/NT/ND. Bowel sounds present. EXTREMITIES: No significant peripheral edema, pulses are equal bilaterally. NEUROLOGY: Patient with significant contractures of the right lower extremity, upper extremities. Eyes open spontaneously. Muscle wasting face, bilateral upper and lower extremities Procedures 07/26- PEG replacement 07/29- right pigtail catheter placement for new pneumothorax 07/29 Date of Insertion: Jul 30, 2015 A/P Assessment and Plan Neuro/Psych: Toxic metabolic Encephalopathy - chronic Parkinson's disease Cognitive disorder/Underlying dementia Depression CT head 06/18/15: - diffuse atrophy unchanged. No acute intracranial findings Continue Sinemet 25/100 q8 via PEG, Seroquel 50 mg twice a day, olanzapine 5 mg a night, Klonopin 2 mg every 8 hours, Paxil 20 daily and Neurontin 300 mg twice a day. These are director long term care home meds, dose of antipsychotics have been titrated up slightly since admit. Continue Lortab when necessary pain and fentanyl patch 50 g every 3 days for pain management. Fentanyl bolus prn breakthrough pain or if needed for turning/ nursing care/etc. Resp: Acute on chronic respiratory failure Chronic trach, Pneumonia Right pneumothorax status post pigtail catheter (resolved) ACV, daily CPAP trials with transition to Tpiece as tolerated. Pulmonary Dr. Karlene gallegos following Pulm toilet, trach care. Exchanged from a #8 fenestrated Shiley cuffed tracheostomy to a #6 Shiley fenestrated cuffed on 07/22. Appears would benefit from larger caliber trach at this time to facilitate trach care/suctioning and decrease airway resistance. Discussing with healthcare proxy but awaiting consent before pursing because would need stoma dilation. Duo nebs every 6 hours when necessary Status post chest tube replacement by interventional radiology on 07/30, chest tube removed 08/04, repeat films do not indicate any pneumothorax Cardiac History of orthostasis History of CAD, HLP, Hypertension Continue Midodrine 5 mg twice a day Monitor HR and BP keep MAP>65mmHg GI: Malnutrition/protein calorie - moderate Status post PEG Hemorrhoids Gastroesophageal reflux disease - Tolerating Jevity 1.5 at 60 cc an hour per nutrition recommendations - Currently Prevacid 30 mg per PEG tube daily for GERD - Current Colace/senna for bowel regimen. FEN/renal: Nonobstructing left renal calculus Hypernatremia - resolved - Monitor renal function, I/O's. electrolytes replacement per protocol. ID: Candiduria ESBL positive Klebsiella/Pseudomonas pneumonia MRSA colonization sepsis UTI Klebsiella ESBL positive (has been treated) Continue with abx per ID ( Merrem 08/11 - stop date anticipated 08/19. ) On lactinex Urine culture: 08/02 Klebsiella pneumonia ESBL positive Urine culture: 08/02 Heena Tropicalis, C. Glabrata Sputum culture: 08/02 Pseudomonas, Klebsiella pneumonia ESBL positive Blood culture: 08/02 yeast species, Heena glabrata, Heena tropicalis - History of Multidrug resistant UTI- ESBL 02/19/15 , MRSA + 03/20/15 - Heena glabrata in urine 03/19/15 - Rechecked blood, sputum and urine cultures 07/06 no growth - 06/17 - blood cultures 2 - CONS/staph epi - 06/17 - sputum - ESBL positive Klebsiella/Pseudomonas Treated 15 days with tobramycin aerosols twice a day. - 06/17 - urine - C. glabrata/tropicalis - treated with Diflucan Endo: Euglycemic. Not requiring sliding scale Heme Anemia - Monitor CBC as needed MSK Bilateral lower extremity Contractures Stage II sacral decubitus present on admission - Wound care evaluate and treat - Continue physical therapy Prophylaxis - GI - Prevacid - DVT - SCDs/Lovenox. Lovenox on hold for now pending tracheostomy upsize 08/13 Daughter, Radha Foreman, updated by telephone. Discussed need for upsize trach. Multiple questions answered. She has not consented at this time and states she will call back and let me know. 08/14 Called Radha and left a message. Level III Leena Mistry MD Aug 15, 2015 15:09
[2015-08-15] MEDS: OLANZapine 5 MG TAB GT SCH (21:19)
[2015-08-16] VITALS (19 sets, daily range): BP systolic 91–113; BP diastolic 59–79; PULSE 67–89; RESP 14–24; TEMP 98.1–99; O2SAT 95–100
[2015-08-16] MEDS: LORazepam 2 MG/ML VIAL IVP PRN ×2 (01:12→11:06)
[2015-08-16] MEDS: CHLORHEXIDINE GLUCONATE 2 % 1 PACK (2 CLOTHS) TOP SCH (03:00)
[2015-08-16] MEDS: RESP: ALBUTEROL 2.5 MG/IPRATROPIUM 0.5 MG NEB (SCH) NEB ×4 (03:05→19:46)
--- NOTE | 2015-08-16 04:51 | RADRPT ---
EXAM DATE/TIME: 08/16/2015 03:53 [facility] COMPARISON: CHEST SINGLE AP, August 07, 2015, 4:59. INDICATIONS : Shortness of breath, possible pulmonary disease. MEDICAL HISTORY : Hypertension. Gastroesophageal reflux disease. Diabetes mellitus type II. SURGICAL HISTORY : Tracheostomy ENCOUNTER: Subsequent ACUITY: 1 month PAIN SCORE: Non-responsive. LOCATION: Bilateral chest FINDINGS: No acute infiltrates. No pleural effusion or pneumothorax. Heart size stable, within normal limits. T tung collar again noted. CONCLUSION: No change. No acute infiltrate. Erlin Escobar MD on August 16, 2015 at 4:48 Board Certified Radiologist. This report was verified electronically.
[2015-08-16] MEDS: HYOSCYAMINE SOLN 0.125 MG/ML 15 ML BTL PO SCH ×3 (06:21→21:31)
[2015-08-16] MEDS: CARBIDOPA/LEVODOPA 25 MG/100 MG TAB GT SCH ×3 (06:21→21:31)
[2015-08-16] MEDS: MEROPENEM INJ 1,000 MG in SODIUM CHLORIDE 0.9% INJ 100 ML IV SCH ×3 (06:21→21:34)
[2015-08-16] MEDS: clonazePAM 1 MG TAB PO SCH ×3 (06:21→21:31)
[2015-08-16] MEDS: REMOVE OLD PATCH TD SCH (08:00)
[2015-08-16] MEDS: CHLORHEXIDINE 0.12% (ORAL KIT) 15 ML CUP MT SCH ×2 (08:00→19:35)
[2015-08-16] MEDS: ARTIFICIAL TEARS OPTH SOLN 15 ML BTL EACH EYE SCH ×3 (09:00→18:00)
[2015-08-16] MEDS: SODIUM CHLORIDE 0.9% FLUSH 5 ML FLUSH IVF SCH ×2 (09:00→19:36)
[2015-08-16] MEDS: PARoxetine HCL 20 MG TAB G-TUBE SCH (09:00)
[2015-08-16] MEDS: fentaNYL 50 MCG/HR PATCH TD SCH (09:53)
[2015-08-16] MEDS: QUEtiapine FUMARATE 25 MG TAB G-TUBE SCH ×2 (09:53→21:27)
[2015-08-16] MEDS: LANSOPRAZOLE SOLUTAB 30 MG TAB NG SCH (09:53)
[2015-08-16] MEDS: SENNOSIDES SYRUP 8.8 MG/5 ML CUP PO SCH (09:53)
[2015-08-16] MEDS: GABAPENTIN 300 MG CAP G-TUBE SCH ×2 (09:53→21:26)
[2015-08-16] MEDS: MIDODRINE 5 MG TAB G-TUBE SCH ×2 (09:54→21:26)
[2015-08-16] MEDS: LACTOBACILLUS ACIDOPHILUS TAB PO SCH ×3 (09:54→18:00)
[2015-08-16] MEDS ORDERED: ETOMIDATE 20 MG/10 ML VIAL ONE (14:52)
[2015-08-16] MEDS ORDERED: VECURONIUM BROMIDE 10 MG VIAL ONE (14:53)
[2015-08-16] MEDS ORDERED: MIDAZOLAM HCL 5 MG/ML VIAL (1 ML) ONE (15:45)
[2015-08-16] MEDS ORDERED: MIDAZOLAM HCL 5 MG/ML VIAL (1 ML) IV ONE (16:00)
[2015-08-16] MEDS ORDERED: fentaNYL CITRATE 250 MCG/5 ML AMP IV PUSH ONE (16:00)
--- NOTE | 2015-08-16 16:06 | PD.PROCEDR ---
Procedure Note Procedure DX: Chronic Ventilator Dependent Respiratory Failure OP: Insertion Shiley XLT-Distal Tracheostomy Tube Indications: Frequent obstruction of undersized tracheostomy tube from secretions. Procedure: Patient on mechanical ventilation, rate 18, FiO2 1.0. Usual ICU monitoring in place. Sedation and analgesia with Etomidate 20 mg and Fentanyl 50 mg iv. Flexible wire delivered through old trach tube, cuff deflated, and tube removed. Blue rhino dilation to size 8 and shiley 8mm trach tube passed over wire, cuff inflated, and good air movement observed with ventilation. Intermittent cuff leak due to chronic tracheal dilation from old cuff. With sats 100%, circuit disconnected, wire passed, and Shiley 8 XLT-Distal passed over wire using dilator. Cuff inflated and good seal obtained with minimal pressure. CXR confirmed trach tube in good position, lungs well expanded. Initial peak airway pressures elevated to 45-52 level, but were reduced to normal with additional sedation. Natan Mark MD Aug 16, 2015 16:06
--- NOTE | 2015-08-16 16:17 | RADRPT ---
EXAM DATE/TIME: 08/16/2015 15:33 [facility] COMPARISON: CHEST SINGLE AP, August 16, 2015, 3:53. INDICATIONS : Pulmonary disease, evaluate trach tube MEDICAL HISTORY : Hypertension. Gastroesophageal reflux disease. Diabetes mellitus type II. SURGICAL HISTORY : Tracheostomy ENCOUNTER: Subsequent ACUITY: 1 week PAIN SCORE: Non-responsive. LOCATION: Bilateral chest FINDINGS: Tracheostomy tube is noted and the distal tip projects 2.5 cm above the kalie at the inferior margin of the clavicles. There is no consolidation or effusion. Heart size normal. CONCLUSION: No acute disease. Jeramie Manjarrez MD on August 16, 2015 at 16:14 Board Certified Radiologist. This report was verified electronically.
--- NOTE | 2015-08-16 18:29 | HHI.CCPN ---
Subjective Remarks/Hospital Course 06/17: Pt is a 54 yr man with multiple medial problems including Parkinson's disease, advanced dementia, hyponatremia, anxiety, pneumonia, GERD, cognitive disorder, and multidrug resistant UTI- ESBL02/19/15 , who resides in a alf. Pt by report was found by staff in alf to be less alert and having respiratory difficultly and fevers. Pt was brought to ED adn placed on ventilator. His workup was inclusive of labs, chest xray and ct head and abd/pelvis. WBC 16.4, +UTI, lactic acid 4, troponin ,0.02, BUN/ cre 18/ 0.76. CT head 06/18/15: diffuse atrophy unchanged. No acute intracranial findings ct abd/ pelvis with IV contrast: 06/18/15 Conclusion: 1. Chronic nonspecific urinary bladder wall thickening. Bladder collapsed with Putnam catheter in place. 2.Chronic bilateral mid to lower zone groundglass opacity. 3. Nonobstructing left renal calculus. 4. Distended rectum Pt admitted and fluid and abx ordered. 06/18: Drowsy, easily arousable. On mechanical ventilation via tracheostomy. Tachypneic. Resting tremor noted. 06/19: Drowsy, arousable. On mechanical ventilation via tracheostomy. 06/20: Drowsy, arousable. Remains on mechanical ventilation via tracheostomy. We'll repeat blood cultures, UA and urine cultures. Fluconazole IV added in view of yeast in urine. 07/06: Reconsulted as patient return to the ventilator on a right ventricular due to tachypnea. Low-grade temperatures. Tolerating tube feeding. Extremity encephalopathic demented patient with difficult neurological examination. 07/07: Status post chest tube placement by IR for right pneumothorax 07/06. Afebrile. Tolerating tube feeds. Positive BM. Currently tachypneic on the ventilator. Does not appear to be any acute distress. 07/08: Afebrile. Tolerating tube feeding. He is comfortable currently on CPAP trials 11/10. Positive BM. 07/09: Afebrile. Tolerating tube feeding. Appears comfortable on T bar. Positive BM. 07/10: Afebrile. Eyes are open. Remained on T piece overnight. Tolerating tube feeding. 07/11: MAXIMUM TEMPERATURE 100. Currently 98.6. Eyes are open. On ACV overnight secondary to "tachypnea and sweating". Switching back to PSV trials today. Goal is T piece during daytime, CPAP at night. 07/12: No acute events overnight. On PSV 15/5 -attempt TP up to 6 hours today. No pneumothorax on chest x-ray 07/13: Placed back on full ventilator support for tachypnea. Otherwise clinically unchanged. No fever today 07/14: Patient was on T piece yesterday evening, placed back on PSV overnight, patient mechanical ventilation this morning. Patient appears to be struggling with mechanical ventilation. Patient placed back on PSV with improvement 07/15: Patient placed back on mechanical ventilation last evening due to respiratory rate. It was indicated patient was tachypnea can the 40s. Patient on mechanical ventilation this time with respiration rate mid 20s. Chest tube still in place without any output, chest x-ray still indicating resolution of pneumothorax. 07/16: Patient seen and examined today. Patient placed back on mechanical ventilation overnight due to respiratory rate. Even on mechanical ventilation patient has respiration rate in the 30s. Patient afebrile, blood pressure stable. Continue vent weaning 07/17: Patient seen and examined. Currently afebrile. Currently on CPAP 15/5 @ 40%. Patient is awake with open mouth resting in bed in no apparent acute distress. Tolerating tube feeding. 2 bowel movements. 07/18: No neurological changes. Afebrile. 2 bowel moments. Tolerating tube feeding. We'll attempt TP trials today. On CPAP since 07/15 07/19 No events overnight. On CPAP with PS: 10, PEEP: 5 and FIO2 35%. Afebrile. On no sedation. 07/20 No events overnight. Tolerating CPAP. Afebrile. 07/21: Remains on CPAP. Attempt T piece trial today. Afebrile. One bowel movement. Tolerating tube feeding. 07/22: Afebrile. Positive BM. Tolerating tube feeding. Noted switched tracheostomy to #6 Shiley cuffed fenestrated. Neurologically unchanged 07/23: Afebrile. Positive BM. Tolerating tube feeding. Questionable leak in exchange trach. Place back on a rate/ACV overnight. Insufflated seems to be doing better at the present time. Will check chest x-ray. Possible he might need #6 XLT versus replacement of chronic #8 Shiley. 07/24: Tolerating TP today, RR in low 30s patient appears comfortable. No acute events overnight 07/25: Remains off the ventilator more than 36 hours now. Intermittently tachypneic probably breathing. Chest x-ray was clear yesterday. No acute events reported overnight. PEG not functioning per RN 08/02: Patient was transferred back to critical care service due to continuing ventilator management, tachypnea. Patient clinical status with no significant change. Patient with low-grade fever 100.2, 08/03: Patient seen and examined today. No significant change in clinical status. Patient still with chronic tachypnea. Patient afebrile now. 08/04: Patient seen and examined today. No change in clinical status. Patient still continues to have chronic tachypnea. Patient afebrile. Continue vent weaning 08/05: Patient seen and examined today. Patient had chest tube removed yesterday , chest x-ray shows redevelopment of pneumothorax. Chest tube replaced. Otherwise, patient still on ventilator with tachypnea. Afebrile 08/06: Patient seen and examined today. Patient went to have chest tube placed, repeat chest x-ray did not indicate any pneumothorax. No overnight events. We' ll need to pursue LTAC placement 08/07 No events overnight. On ventilator via trach. Afebrile. 08/08 Patient tolerated CPAP x4 hrs yesterday. Afebrile. On no sedation. 08/09 No events overnight. Tolerated CPAP x 12 hrs yesterday. Afebrile. 08/10 Patient tolerated TP's x 12 hrs yesterday back on ACV overnight. 08/11 No events overnight, currently on TP's with 40% FIO2. Afebrile. 08/12 On CPAP 10/5. Tolerated Tpiece 3 hours earlier today. Afebrile. 08/13 On CPAP 10/5. Not tolerating CPAP as well over last few days and RT notes challenge with suctioning respiratory secretions adequately. Discussing with healthcare proxy regarding exchange trach to 8.0. 08/14 Nursing and RT staff having continued difficulty suctioning respiratory secretions via 6.0 tracheostomy. KAREN Garcia did not consent to stoma dilation and trach upsize yesterday but said she would call back and let me know but no return call. Contacted again today and left a message. Afebrile. On CPAP 10/5. Brow furrowing on exam, appears to be in pain but pain not localizable. Tolerating tube feeds, had BM yesterday Subjective: 08/15 Not tolerating CPAP today. Contacted healthcare surrogate again and discussed need for trach change. She consented and trach was dilated and up- sized to 8.0 Distal XLT to facilitate pulmonary toilet and to address volume leak. Objective - Vital Signs Date Time Temp Pulse Resp B/P Pulse Ox O2 Delivery O2 Flow Rate FiO2 08/16/15 16:20 100 35 08/16/15 16:00 67 08/16/15 16:00 99.0 24 97/61 08/16/15 07:00 Mechanical Ventilator 08/13/15 09:45 8.00 Intake and Output 08/15/15 08/15/15 08/16/15 08:00 16:00 00:00 Intake Total 683 ml 750 ml 438 ml Output Total 400 ml 350 ml 300.0 ml Balance 283 ml 400 ml 138.0 ml Result Diagram: 08/13/15 0349 08/13/15 0349 Other Results Laboratory Tests Test 08/12/15 07:05 White Blood Count 8.0 TH/MM3 Red Blood Count 3.36 MIL/MM3 Hemoglobin 9.4 GM/DL Hematocrit 29.9 % Mean Corpuscular Volume 89.1 FL Mean Corpuscular Hemoglobin 27.9 PG Mean Corpuscular Hemoglobin 31.3 % Concent Red Cell Distribution Width 13.3 % Platelet Count 196 TH/MM3 Mean Platelet Volume 10.2 FL Neutrophils (%) (Auto) 63.1 % Lymphocytes (%) (Auto) 19.7 % Monocytes (%) (Auto) 6.7 % Eosinophils (%) (Auto) 9.7 % Basophils (%) (Auto) 0.8 % Neutrophils # (Auto) 5.1 TH/MM3 Lymphocytes # (Auto) 1.6 TH/MM3 Monocytes # (Auto) 0.5 TH/MM3 Eosinophils # (Auto) 0.8 TH/MM3 Basophils # (Auto) 0.1 TH/MM3 CBC Comment DIFF FINAL Differential Comment Imaging Last Impressions Chest X-Ray 08/07/15 0600 Signed Impressions: Service Date/Time: Friday, August 07, 2015 04:59 - CONCLUSION: No evidence of pneumothorax. No significant interval change. Ilir Agosto MD Tunnelled Chest Tube Removal 08/05/15 1100 Signed Impressions: Service Date/Time: Wednesday, August 05, 2015 11:00 - CONCLUSION: Uncomplicated chest tube removal. Blaine Jackson MD Chest Tube Change 07/31/15 0000 Signed Impressions: Service Date/Time: Friday, July 31, 2015 14:34 - CONCLUSION: Uncomplicated reposition of previously placed chest tube as above. Blaine Jackson MD Chest Tube Insertion 07/30/15 0000 Signed Impressions: Service Date/Time: July 14:50 - CONCLUSION: Uncomplicated chest tube placement as above. Blaine Jackson MD Catheter Change 07/27/15 0000 Signed Impressions: Service Date/Time: Monday, July 27, 2015 14:43 - CONCLUSION: Uncomplicated gastrostomy tube exchange as above. Blaine Jackson MD Chest CT 07/11/15 0000 Signed Impressions: Service Date/Time: Saturday, July 11, 2015 09:49 - CONCLUSION: Scattered patchy densities significantly improved from previous study. Tiny anterior right basilar pneumothorax. Right-sided chest tube in good position. Néstor Matamoros MD Head CT 06/18/151902 Signed Impressions: Service Date/Time: June 19:31 - CONCLUSION: Diffuse atrophy unchanged. No acute intracranial findings. Kush Briscoe MD Abdomen/Pelvis CT 06/18/151902 Signed Impressions: Service Date/Time: June 19:36 - CONCLUSION: 1. Chronic nonspecific urinary bladder wall thickening. Bladder collapsed with Putnam catheter in place. 2. Chronic bilateral mid to lower lung zone groundglass opacity. 3. Nonobstructing left renal calculus. 4. Distended rectum. Kush Briscoe MD Objective Remarks GENERAL: 54-year-old male, cachectic, brow furrowing, appears uncomfortable on mechanical ventilation. HEENT: NC/AT. PERRL. MMM dry and pink. NECK: No JVD. 6.[address] with air leak. Very difficult to pass suction catheter. CARDIAC: RRR. S1/S2. No S4. No murmurs, clicks gallops or rubs. LUNGS: Tachypneic with bilateral rhonchi, no wheeze. ABDOMEN: S/NT/ND. Bowel sounds present. EXTREMITIES: No significant peripheral edema, pulses are equal bilaterally. NEUROLOGY: Patient with significant contractures of the right lower extremity, upper extremities. Eyes open spontaneously. Muscle wasting face, bilateral upper and lower extremities Procedures 07/26- PEG replacement 07/29- right pigtail catheter placement for new pneumothorax 07/29 Date of Insertion: Jul 30, 2015 A/P Assessment and Plan Neuro/Psych: Toxic metabolic Encephalopathy - chronic Parkinson's disease Cognitive disorder/Underlying dementia Depression CT head 06/18/15: - diffuse atrophy unchanged. No acute intracranial findings Continue Sinemet 25/100 q8 via PEG, Seroquel 50 mg twice a day, olanzapine 5 mg a night, Klonopin 2 mg every 8 hours, Paxil 20 daily and Neurontin 300 mg twice a day. 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 Continue Lortab when necessary pain and fentanyl patch 50 g every 3 days for pain management. Fentanyl bolus prn breakthrough pain or if needed for turning/ nursing care/etc. Resp: Acute on chronic respiratory failure Chronic trach, Pneumonia Right pneumothorax status post pigtail catheter (resolved) ACV, daily CPAP trials with transition to Tpiece as tolerated. Pulmonary Dr. Karlene gallegos following Pulm toilet, trach care. Exchanged from a #8 fenestrated Shiley cuffed tracheostomy to a #6 Shiley fenestrated cuffed on 07/22. However, now having difficulty suctioning via this trach and is again requiring full ventilatory support. Exchanged to 8 Distal XLT which has addressed air leak and can facilitate suctioning. Duo nebs every 6 hours when necessary Status post chest tube replacement by interventional radiology on 07/30, chest tube removed 08/04, repeat films do not indicate any pneumothorax Cardiac History of orthostasis History of CAD, HLP, Hypertension Continue Midodrine 5 mg twice a day Monitor HR and BP keep MAP>65mmHg GI: Malnutrition/protein calorie - moderate Status post PEG Hemorrhoids Gastroesophageal reflux disease - Tolerating Jevity 1.5 at 60 cc an hour per nutrition recommendations - Currently Prevacid 30 mg per PEG tube daily for GERD - Current Colace/senna for bowel regimen. FEN/renal: Nonobstructing left renal calculus Hypernatremia - resolved - Monitor renal function, I/O's. electrolytes replacement per protocol. ID: Candiduria ESBL positive Klebsiella/Pseudomonas pneumonia MRSA colonization sepsis UTI Klebsiella ESBL positive (has been treated) Continue with abx per ID ( Merrem 08/11 - stop date anticipated 08/19. ) On lactinex Urine culture: 08/02 Klebsiella pneumonia ESBL positive Urine culture: 08/02 Heena Tropicalis, C. Glabrata Sputum culture: 08/02 Pseudomonas, Klebsiella pneumonia ESBL positive Blood culture: 08/02 yeast species, Heena glabrata, Heena tropicalis - History of Multidrug resistant UTI- ESBL 02/19/15 , MRSA + 03/20/15 - Heena glabrata in urine 03/19/15 - Rechecked blood, sputum and urine cultures 07/06 no growth - 06/17 - blood cultures 2 - CONS/staph epi - 06/17 - sputum - ESBL positive Klebsiella/Pseudomonas Treated 15 days with tobramycin aerosols twice a day. - 06/17 - urine - C. glabrata/tropicalis - treated with Diflucan Endo: Euglycemic. Not requiring sliding scale Heme Anemia - Monitor CBC as needed MSK Bilateral lower extremity Contractures Stage II sacral decubitus present on admission - Wound care evaluate and treat - Continue physical therapy Prophylaxis - GI - Prevacid - DVT - SCDs/Lovenox. Resume lovenox 40 mg subcut daily. 08/15 Called Radha Foreman. Updated regarding care. Answered multiple questions regarding trach exchange and she ultimately consented. Prepared for trach exchange, provided procedural sedation and remained at bedside to help maintain airway during stoma dilation and tracheostomy exchange by Dr. Mark. CCT 60 minutes exclusive of separately billable procedures. Leena Mistry MD Aug 16, 2015 18:29
[2015-08-16] MEDS: OLANZapine 5 MG TAB GT SCH (21:26)
[2015-08-17] VITALS (20 sets, daily range): BP systolic 90–102; BP diastolic 55–71; PULSE 79–100; RESP 15–22; TEMP 98.2–99.1; O2SAT 93–100
[2015-08-17] MEDS: CHLORHEXIDINE GLUCONATE 2 % 1 PACK (2 CLOTHS) TOP SCH (01:28)
[2015-08-17] MEDS: RESP: ALBUTEROL 2.5 MG/IPRATROPIUM 0.5 MG NEB (SCH) NEB ×4 (03:15→20:11)
[2015-08-17 06:07] LABS: BICARBONATE 41.3 MEQ/L (21.0-32.0); POTASSIUM 4.1 MEQ/L (3.5-5.1)
[2015-08-17] MEDS: MEROPENEM INJ 1,000 MG in SODIUM CHLORIDE 0.9% INJ 100 ML IV SCH ×3 (06:12→20:53)
[2015-08-17] MEDS: CARBIDOPA/LEVODOPA 25 MG/100 MG TAB GT SCH ×3 (06:12→20:54)
[2015-08-17] MEDS: clonazePAM 1 MG TAB PO SCH ×3 (06:12→20:54)
[2015-08-17] MEDS: HYOSCYAMINE SOLN 0.125 MG/ML 15 ML BTL PO SCH ×3 (06:12→20:54)
[2015-08-17 06:18] LABS: AUTOMATED NEUTROPHIL # 5.6 TH/MM3 (1.8-7.7); BASOPHIL # 0.1 TH/MM3 (0-0.2); BASOPHIL % 0.8 % (0.0-2.0); EOSINOPHIL % 11.8 % (0.0-4.0); HEMO FLAGS DIFF FINAL; LYMPH % 13.6 % (9.0-44.0); LYMPHOCYTE # 1.2 TH/MM3 (1.0-4.8); MEAN CELL VOLUME 88.9 FL (80.0-100.0); MEAN CORPUSCULAR HEMOGLOBIN 28.5 PG (27.0-34.0); MONO % 8.5 % (0.0-8.0); NEUT % 65.3 % (16.0-70.0); PLATELET COUNT 191 TH/MM3 (150-450); RED BLOOD COUNT 3.26 MIL/MM3 (4.50-5.90); RED CELL DISTRIBUTION WIDTH 13.6 % (11.6-17.2); WHITE BLOOD COUNT 8.5 TH/MM3 (4.0-11.0)
--- NOTE | 2015-08-17 07:51 | HHI.CCPN ---
Subjective Remarks/Hospital Course 06/17: Pt is a 54 yr man with multiple medial problems including Parkinson's disease, advanced dementia, hyponatremia, anxiety, pneumonia, GERD, cognitive disorder, and multidrug resistant UTI- ESBL02/19/15 , who resides in a intermediate. Pt by report was found by staff in intermediate to be less alert and having respiratory difficultly and fevers. Pt was brought to ED adn placed on ventilator. His workup was inclusive of labs, chest xray and ct head and abd/pelvis. WBC 16.4, +UTI, lactic acid 4, troponin ,0.02, BUN/ cre 18/ 0.76. CT head 06/18/15: diffuse atrophy unchanged. No acute intracranial findings ct abd/ pelvis with IV contrast: 06/18/15 Conclusion: 1. Chronic nonspecific urinary bladder wall thickening. Bladder collapsed with Putnam catheter in place. 2.Chronic bilateral mid to lower zone groundglass opacity. 3. Nonobstructing left renal calculus. 4. Distended rectum Pt admitted and fluid and abx ordered. 06/18: Drowsy, easily arousable. On mechanical ventilation via tracheostomy. Tachypneic. Resting tremor noted. 06/19: Drowsy, arousable. On mechanical ventilation via tracheostomy. 06/20: Drowsy, arousable. Remains on mechanical ventilation via tracheostomy. We'll repeat blood cultures, UA and urine cultures. Fluconazole IV added in view of yeast in urine. 07/06: Reconsulted as patient return to the ventilator on a right ventricular due to tachypnea. Low-grade temperatures. Tolerating tube feeding. Extremity encephalopathic demented patient with difficult neurological examination. 07/07: Status post chest tube placement by IR for right pneumothorax 07/06. Afebrile. Tolerating tube feeds. Positive BM. Currently tachypneic on the ventilator. Does not appear to be any acute distress. 07/08: Afebrile. Tolerating tube feeding. He is comfortable currently on CPAP trials 11/10. Positive BM. 07/09: Afebrile. Tolerating tube feeding. Appears comfortable on T bar. Positive BM. 07/10: Afebrile. Eyes are open. Remained on T piece overnight. Tolerating tube feeding. 07/11: MAXIMUM TEMPERATURE 100. Currently 98.6. Eyes are open. On ACV overnight secondary to "tachypnea and sweating". Switching back to PSV trials today. Goal is T piece during daytime, CPAP at night. 07/12: No acute events overnight. On PSV 15/5 -attempt TP up to 6 hours today. No pneumothorax on chest x-ray 07/13: Placed back on full ventilator support for tachypnea. Otherwise clinically unchanged. No fever today 07/14: Patient was on T piece yesterday evening, placed back on PSV overnight, patient mechanical ventilation this morning. Patient appears to be struggling with mechanical ventilation. Patient placed back on PSV with improvement 07/15: Patient placed back on mechanical ventilation last evening due to respiratory rate. It was indicated patient was tachypnea can the 40s. Patient on mechanical ventilation this time with respiration rate mid 20s. Chest tube still in place without any output, chest x-ray still indicating resolution of pneumothorax. 07/16: Patient seen and examined today. Patient placed back on mechanical ventilation overnight due to respiratory rate. Even on mechanical ventilation patient has respiration rate in the 30s. Patient afebrile, blood pressure stable. Continue vent weaning 07/17: Patient seen and examined. Currently afebrile. Currently on CPAP 15/5 @ 40%. Patient is awake with open mouth resting in bed in no apparent acute distress. Tolerating tube feeding. 2 bowel movements. 07/18: No neurological changes. Afebrile. 2 bowel moments. Tolerating tube feeding. We'll attempt TP trials today. On CPAP since 07/15 07/19 No events overnight. On CPAP with PS: 10, PEEP: 5 and FIO2 35%. Afebrile. On no sedation. 07/20 No events overnight. Tolerating CPAP. Afebrile. 07/21: Remains on CPAP. Attempt T piece trial today. Afebrile. One bowel movement. Tolerating tube feeding. 07/22: Afebrile. Positive BM. Tolerating tube feeding. Noted switched tracheostomy to #6 Shiley cuffed fenestrated. Neurologically unchanged 07/23: Afebrile. Positive BM. Tolerating tube feeding. Questionable leak in exchange trach. Place back on a rate/ACV overnight. Insufflated seems to be doing better at the present time. Will check chest x-ray. Possible he might need #6 XLT versus replacement of chronic #8 Shiley. 07/24: Tolerating TP today, RR in low 30s patient appears comfortable. No acute events overnight 07/25: Remains off the ventilator more than 36 hours now. Intermittently tachypneic probably breathing. Chest x-ray was clear yesterday. No acute events reported overnight. PEG not functioning per RN 08/02: Patient was transferred back to critical care service due to continuing ventilator management, tachypnea. Patient clinical status with no significant change. Patient with low-grade fever 100.2, 08/03: Patient seen and examined today. No significant change in clinical status. Patient still with chronic tachypnea. Patient afebrile now. 08/04: Patient seen and examined today. No change in clinical status. Patient still continues to have chronic tachypnea. Patient afebrile. Continue vent weaning 08/05: Patient seen and examined today. Patient had chest tube removed yesterday , chest x-ray shows redevelopment of pneumothorax. Chest tube replaced. Otherwise, patient still on ventilator with tachypnea. Afebrile 08/06: Patient seen and examined today. Patient went to have chest tube placed, repeat chest x-ray did not indicate any pneumothorax. No overnight events. We' ll need to pursue LTAC placement 08/07 No events overnight. On ventilator via trach. Afebrile. 08/08 Patient tolerated CPAP x4 hrs yesterday. Afebrile. On no sedation. 08/09 No events overnight. Tolerated CPAP x 12 hrs yesterday. Afebrile. 08/10 Patient tolerated TP's x 12 hrs yesterday back on ACV overnight. 08/11 No events overnight, currently on TP's with 40% FIO2. Afebrile. 08/12 On CPAP 10/5. Tolerated Tpiece 3 hours earlier today. Afebrile. 08/13 On CPAP 10/5. Not tolerating CPAP as well over last few days and RT notes challenge with suctioning respiratory secretions adequately. Discussing with healthcare proxy regarding exchange trach to 8.0. 08/14 Nursing and RT staff having continued difficulty suctioning respiratory secretions via 6.0 tracheostomy. KAREN Garcia did not consent to stoma dilation and trach upsize yesterday but said she would call back and let me know but no return call. Contacted again today and left a message. Afebrile. On CPAP 10/5. Brow furrowing on exam, appears to be in pain but pain not localizable. Tolerating tube feeds, had BM yesterday Subjective: 08/15 Not tolerating CPAP today. Contacted healthcare surrogate again and discussed need for trach change. She consented and trach was dilated and up- sized to 8.0 Distal XLT to facilitate pulmonary toilet and to address volume leak. 08/16 No events overnight. Remains on ventilator via trach. Afebrile. Tolerating TF. Objective - Vital Signs Date Time Temp Pulse Resp B/P Pulse Ox O2 Delivery O2 Flow Rate FiO2 08/17/15 06:00 79 08/17/15 04:17 98 35 08/17/15 04:00 98.6 22 90/59 08/16/15 20:00 Mechanical Ventilator 08/13/15 09:45 8.00 Intake and Output 08/16/15 08/16/15 08/16/15 07:59 15:59 23:59 Intake Total 702 ml 650 ml 821 ml Output Total 380 ml 351 ml 300 ml Balance 322 ml 299 ml 521 ml Result Diagram: 08/17/15 0405 08/17/15 0405 Other Results Laboratory Tests Test 08/17/15 04:05 White Blood Count 8.5 TH/MM3 Red Blood Count 3.26 MIL/MM3 Hemoglobin 9.3 GM/DL Hematocrit 29.0 % Mean Corpuscular Volume 88.9 FL Mean Corpuscular Hemoglobin 28.5 PG Mean Corpuscular Hemoglobin 32.0 % Concent Red Cell Distribution Width 13.6 % Platelet Count 191 TH/MM3 Mean Platelet Volume 10.1 FL Neutrophils (%) (Auto) 65.3 % Lymphocytes (%) (Auto) 13.6 % Monocytes (%) (Auto) 8.5 % Eosinophils (%) (Auto) 11.8 % Basophils (%) (Auto) 0.8 % Neutrophils # (Auto) 5.6 TH/MM3 Lymphocytes # (Auto) 1.2 TH/MM3 Monocytes # (Auto) 0.7 TH/MM3 Eosinophils # (Auto) 1.0 TH/MM3 Basophils # (Auto) 0.1 TH/MM3 CBC Comment DIFF FINAL Differential Comment Sodium Level 143 MEQ/L Potassium Level 4.1 MEQ/L Chloride Level 98 MEQ/L Carbon Dioxide Level 41.3 MEQ/L Anion Gap 4 MEQ/L Blood Urea Nitrogen 16 MG/DL Creatinine 0.38 MG/DL Estimat Glomerular Filtration 240 ML/MIN Rate Random Glucose 111 MG/DL Calcium Level 9.7 MG/DL Imaging Last Impressions Chest X-Ray 08/16/15 0000 Signed Impressions: Service Date/Time: Sunday, August 16, 2015 15:33 - CONCLUSION: No acute disease. Jeramie Manjarrez MD Tunnelled Chest Tube Removal 08/05/15 1100 Signed Impressions: Service Date/Time: Wednesday, August 05, 2015 11:00 - CONCLUSION: Uncomplicated chest tube removal. Blaine Jackson MD Chest Tube Change 07/31/15 0000 Signed Impressions: Service Date/Time: Friday, July 31, 2015 14:34 - CONCLUSION: Uncomplicated reposition of previously placed chest tube as above. Blaine Jackson MD Chest Tube Insertion 07/30/15 0000 Signed Impressions: Service Date/Time: July 14:50 - CONCLUSION: Uncomplicated chest tube placement as above. Blaine Jackson MD Catheter Change 07/27/15 0000 Signed Impressions: Service Date/Time: Monday, July 27, 2015 14:43 - CONCLUSION: Uncomplicated gastrostomy tube exchange as above. Blaine Jackson MD Chest CT 07/11/15 0000 Signed Impressions: Service Date/Time: Saturday, July 11, 2015 09:49 - CONCLUSION: Scattered patchy densities significantly improved from previous study. Tiny anterior right basilar pneumothorax. Right-sided chest tube in good position. Néstor Matamoros MD Head CT 06/18/151902 Signed Impressions: Service Date/Time: June 19:31 - CONCLUSION: Diffuse atrophy unchanged. No acute intracranial findings. Kush Briscoe MD Abdomen/Pelvis CT 06/18/151902 Signed Impressions: Service Date/Time: June 19:36 - CONCLUSION: 1. Chronic nonspecific urinary bladder wall thickening. Bladder collapsed with Putnam catheter in place. 2. Chronic bilateral mid to lower lung zone groundglass opacity. 3. Nonobstructing left renal calculus. 4. Distended rectum. Kush Briscoe MD Objective Remarks GENERAL: 54-year-old male, cachectic, brow furrowing, appears uncomfortable on mechanical ventilation. HEENT: NC/AT. PERRL. MMM dry and pink. NECK: No JVD. 6.[address] with air leak. Very difficult to pass suction catheter. CARDIAC: RRR. S1/S2. No S4. No murmurs, clicks gallops or rubs. LUNGS: Tachypneic with bilateral rhonchi, no wheeze. ABDOMEN: S/NT/ND. Bowel sounds present. EXTREMITIES: No significant peripheral edema, pulses are equal bilaterally. NEUROLOGY: Patient with significant contractures of the right lower extremity, upper extremities. Eyes open spontaneously. Muscle wasting face, bilateral upper and lower extremities Procedures 07/26- PEG replacement 07/29- right pigtail catheter placement for new pneumothorax 07/29 Date of Insertion: Jul 30, 2015 A/P Assessment and Plan Neuro/Psych: Toxic metabolic Encephalopathy - chronic Parkinson's disease Cognitive disorder/Underlying dementia Depression CT head 06/18/15: - diffuse atrophy unchanged. No acute intracranial findings Continue Sinemet 25/100 q8 via PEG, Seroquel 50 mg twice a day, olanzapine 5 mg a night, Klonopin 2 mg every 8 hours, Paxil 20 daily and Neurontin 300 mg twice a day. These are superintendent terminal home meds, dose of antipsychotics have been titrated up slightly since admit. Continue Lortab when necessary pain and fentanyl patch 50 g every 3 days for pain management. Fentanyl bolus prn breakthrough pain or if needed for turning/ nursing care/etc. Resp: Acute on chronic respiratory failure Chronic trach, Pneumonia Right pneumothorax status post pigtail catheter (resolved) ACV, daily CPAP trials with transition to Tpiece as tolerated. Pulmonary Dr. Karlene gallegos following. Will give Diamox 250mg IV x1 Pulm toilet, trach care. Exchanged to 8 Distal XLT Duo nebs every 6 hours when necessary Status post chest tube replacement by interventional radiology on 07/30, chest tube removed 08/04, repeat films do not indicate any pneumothorax Cardiac History of orthostasis History of CAD, HLP, Hypertension Continue Midodrine 5 mg twice a day Monitor HR and BP keep MAP>65mmHg GI: Malnutrition/protein calorie - moderate Status post PEG Hemorrhoids Gastroesophageal reflux disease - Tolerating Jevity 1.5 at 60 cc an hour per nutrition recommendations - Currently Prevacid 30 mg per PEG tube daily for GERD - Current Colace/senna for bowel regimen. FEN/renal: Nonobstructing left renal calculus Hypernatremia - resolved - Monitor renal function, I/O's. electrolytes replacement per protocol. ID: Candiduria ESBL positive Klebsiella/Pseudomonas pneumonia MRSA colonization sepsis UTI Klebsiella ESBL positive (has been treated) Continue with abx per ID ( Merrem 08/11 - stop date anticipated 08/19. ) On Lactinex Urine culture: 08/02 Klebsiella pneumonia ESBL positive Urine culture: 08/02 Heena Tropicalis, C. Glabrata Sputum culture: 08/02 Pseudomonas, Klebsiella pneumonia ESBL positive Blood culture: 08/02 yeast species, Heena glabrata, Heena tropicalis - History of Multidrug resistant UTI- ESBL 02/19/15 , MRSA + 03/20/15 - Heena glabrata in urine 03/19/15 - Rechecked blood, sputum and urine cultures 07/06 no growth - 06/17 - blood cultures 2 - CONS/staph epi - 06/17 - sputum - ESBL positive Klebsiella/Pseudomonas Treated 15 days with tobramycin aerosols twice a day. - 06/17 - urine - C. glabrata/tropicalis - treated with Diflucan Endo: Euglycemic. Not requiring sliding scale Heme Anemia - Monitor CBC MSK Bilateral lower extremity Contractures Stage II sacral decubitus present on admission - Wound care evaluate and treat - Continue physical therapy Prophylaxis - GI - Prevacid - DVT - SCDs/ resume Lovenox. CCT 30 mins Antonio Carr MD Aug 17, 2015 07:51
[2015-08-17] MEDS: LACTOBACILLUS ACIDOPHILUS TAB PO SCH ×3 (09:29→18:09)
[2015-08-17] MEDS: QUEtiapine FUMARATE 25 MG TAB G-TUBE SCH ×2 (09:29→20:54)
[2015-08-17] MEDS: SENNOSIDES SYRUP 8.8 MG/5 ML CUP PO SCH (09:30)
[2015-08-17] MEDS: MIDODRINE 5 MG TAB G-TUBE SCH ×2 (09:30→20:54)
[2015-08-17] MEDS: SODIUM CHLORIDE 0.9% FLUSH 5 ML FLUSH IVF SCH ×2 (09:30→20:53)
[2015-08-17] MEDS: PARoxetine HCL 20 MG TAB G-TUBE SCH (09:30)
[2015-08-17] MEDS: LANSOPRAZOLE SOLUTAB 30 MG TAB NG SCH (09:30)
[2015-08-17] MEDS: GABAPENTIN 300 MG CAP G-TUBE SCH ×2 (09:30→20:54)
[2015-08-17] MEDS: ARTIFICIAL TEARS OPTH SOLN 15 ML BTL EACH EYE SCH ×3 (09:30→18:09)
[2015-08-17] MEDS: CHLORHEXIDINE 0.12% (ORAL KIT) 15 ML CUP MT SCH ×2 (09:30→20:54)
--- NOTE | 2015-08-17 12:59 | HHI.PR ---
Subjective Remarks No change and on CPAP. tachypneic .Needs vent support at HS. Sat 96 on 35 %. Output was OK. Remains Lethargic. Objective Vital Signs Date Time Temp Pulse Resp B/P Pulse Ox O2 Delivery O2 Flow Rate FiO2 08/17/15 12:00 35 08/17/15 12:00 99.0 92 21 93/61 100 08/17/15 12:00 92 08/17/15 10:11 99 35 08/17/15 10:00 92 08/17/15 08:00 98.4 86 15 102/69 100 08/17/15 08:00 35 08/17/15 08:00 86 08/17/15 07:55 100 35 08/17/15 07:00 100 Mechanical Ventilator 35 08/17/15 06:00 79 08/17/15 04:17 98 35 08/17/15 04:00 35 08/17/15 04:00 98.6 82 22 90/59 97 08/17/15 04:00 82 08/17/15 02:00 90 08/17/15 01:35 97 35 08/17/15 00:00 35 08/17/15 00:00 98.2 94 22 95/62 97 08/17/15 00:00 94 08/16/15 22:10 100 35 08/16/15 22:00 84 08/16/15 20:00 84 08/16/15 20:00 100 Mechanical Ventilator 35 08/16/15 20:00 35 08/16/15 20:00 98.4 84 20 104/72 100 08/16/15 19:40 97 35 08/16/15 18:00 67 08/16/15 16:20 100 35 08/16/15 16:00 67 08/16/15 16:00 67 08/16/15 16:00 35 08/16/15 16:00 99.0 78 24 97/61 100 08/16/15 14:00 67 I/O 08/16/15 08/16/15 08/16/15 08/17/15 08/17/15 08/17/15 07:00 15:00 23:00 07:00 15:00 23:00 Intake Total 702 ml 650 ml 821 ml 651 ml Output Total 380 ml 351 ml 300 ml 550 ml Balance 322 ml 299 ml 521 ml 101 ml IV Total 230 ml 150 ml 252 ml 179 ml Tube Feeding 412 ml 350 ml 509 ml 442 ml Other 60 ml 150 ml 60 ml 30 ml Output Urine Total 380 ml 350 ml 300 ml 550 ml Stool Total 1 ml Tube Feeding Residual Discard 0 ml 0 ml 0 ml 0 ml # Bowel Movements 2 0 0 Result Diagram: 08/17/1540408/17/15404 Objective Remarks This is a thin white male who in on the vent with a trach tube in place. HEENT: Pupils are equal and reactive to light.Throat is clear. CHEST: Bilateral wheeze with occ crackles. Decreased breath sounds . CARDIOVASCULAR: S1 and S2 is normal. ABDOMEN: Soft, nondistended. He has a PEG tube in place. EXTREMITIES: No edema.muscle wasting. NEURO: Lethargic and Does not move his extremities . Assessment and Plan Assessment and Plan IMPRESSION 1. Respiratory failure, ventilator dependent 2. Sepsis 3. UTI 4. Tracheobronchitis 5. Parkinson's disease 6. Dementia. 7. Severe Deconditioning. 8. Left Pneumothorax. Resolved. Plan : 1. A/C rate 10 at HS PEEP + 5, FIO2 35 %. 2. Nebs qid , duoneb. 3. Antibiotics per ID. 4. CPAP 5/15 during the day. 5. Levsin .125 mg tid. 6. Ativan .5 mg q6h prn. 7. Cont Tube feeds at 60 CC 8. Lovenox 40 Mg S/Q daily. Darren Kiser MD Aug 17, 2015 12:59
--- NOTE | 2015-08-17 14:04 | HHI.IDPN ---
Subjective Subjective Remarks ID COVERAGE Chart reviewed Mr. Foreman is a 54-year-old male with past medical history significant for Parkinson's disease, advanced dementia, hyponatremia, history of ESBL UTI. Admitted with sepsis. Now with Pneumonia, UTI and staph bacteremia Notes reviewed Temps occ low grade Had upsizing of his trach this weekend On the vent Looks comfortable CPAP Did 3 hours T-piece yesterday Had a lot of secretions this morning Antibiotics meropenem Lines Line sites with no e/o infection Past Medical History reviewed Allergies: Coded Allergies: *MDRO Multi-Drug Resistant Organism (Verified Adverse Reaction, Unknown, ) ESBL E. coli (urine) - 02/19/2015; ESBL K. pneumoniae (sputum) - 06/18/15, (urine) - 08/03/15, (sputum) - 08/03/15 MRSA PCR POSITIVE - 03/20/2015 Objective . Vital Signs Date Time Temp Pulse Resp B/P Pulse Ox O2 Delivery O2 Flow Rate FiO2 08/17/15 13:16 97 35 08/17/15 12:00 35 08/17/15 12:00 99.0 92 21 93/61 100 08/17/15 12:00 92 08/17/15 10:11 99 35 08/17/15 10:00 92 08/17/15 08:00 98.4 86 15 102/69 100 08/17/15 08:00 35 08/17/15 08:00 86 08/17/15 07:55 100 35 08/17/15 07:00 100 Mechanical Ventilator 35 08/17/15 06:00 79 08/17/15 04:17 98 35 08/17/15 04:00 35 08/17/15 04:00 98.6 82 22 90/59 97 08/17/15 04:00 82 08/17/15 02:00 90 08/17/15 01:35 97 35 08/17/15 00:00 35 08/17/15 00:00 98.2 94 22 95/62 97 08/17/15 00:00 94 08/16/15 22:10 100 35 08/16/15 22:00 84 08/16/15 20:00 84 08/16/15 20:00 100 Mechanical Ventilator 35 08/16/15 20:00 35 08/16/15 20:00 98.4 84 20 104/72 100 08/16/15 19:40 97 35 08/16/15 18:00 67 08/16/15 16:20 100 35 08/16/15 16:00 67 08/16/15 16:00 67 08/16/15 16:00 35 08/16/15 16:00 99.0 78 24 97/61 100 08/16/15 08/16/15 08/17/15 14:59 22:59 06:59 Intake Total 650 ml 821 ml 651 ml Output Total 351 ml 300 ml 550 ml Balance 299 ml 521 ml 101 ml IV Total 150 ml 252 ml 179 ml Tube Feeding 350 ml 509 ml 442 ml Other 150 ml 60 ml 30 ml Output Urine Total 350 ml 300 ml 550 ml Stool Total 1 ml Tube Feeding Residual Discard 0 ml 0 ml 0 ml # Bowel Movements 0 0 . Laboratory Tests Test 08/17/15 04:05 White Blood Count 8.5 TH/MM3 Red Blood Count 3.26 MIL/MM3 Hemoglobin 9.3 GM/DL Hematocrit 29.0 % Mean Corpuscular Volume 88.9 FL Mean Corpuscular Hemoglobin 28.5 PG Mean Corpuscular Hemoglobin 32.0 % Concent Red Cell Distribution Width 13.6 % Platelet Count 191 TH/MM3 Mean Platelet Volume 10.1 FL Neutrophils (%) (Auto) 65.3 % Lymphocytes (%) (Auto) 13.6 % Monocytes (%) (Auto) 8.5 % Eosinophils (%) (Auto) 11.8 % Basophils (%) (Auto) 0.8 % Neutrophils # (Auto) 5.6 TH/MM3 Lymphocytes # (Auto) 1.2 TH/MM3 Monocytes # (Auto) 0.7 TH/MM3 Eosinophils # (Auto) 1.0 TH/MM3 Basophils # (Auto) 0.1 TH/MM3 CBC Comment DIFF FINAL Differential Comment Laboratory Tests Test 08/17/15 04:05 Sodium Level 143 MEQ/L Potassium Level 4.1 MEQ/L Chloride Level 98 MEQ/L Carbon Dioxide Level 41.3 MEQ/L Anion Gap 4 MEQ/L Blood Urea Nitrogen 16 MG/DL Creatinine 0.38 MG/DL Estimat Glomerular Filtration 240 ML/MIN Rate Random Glucose 111 MG/DL Calcium Level 9.7 MG/DL Imaging Chest X-Ray 08/16/15 0000 Signed Impressions: Service Date/Time: Sunday, August 16, 2015 15:33 - CONCLUSION: No acute disease. Jeramie Manjarrez MD Tunnelled Chest Tube Removal 08/05/15 1100 Signed Impressions: Service Date/Time: Wednesday, August 05, 2015 11:00 - CONCLUSION: Uncomplicated chest tube removal. Blaine Jackson MD Chest Tube Change 07/31/15 0000 Signed Impressions: Service Date/Time: Friday, July 31, 2015 14:34 - CONCLUSION: Uncomplicated reposition of previously placed chest tube as above. Blaine Jackson MD Chest Tube Insertion 07/30/15 0000 Signed Impressions: Service Date/Time: July 14:50 - CONCLUSION: Uncomplicated chest tube placement as above. Blaine Jackson MD Catheter Change 07/27/15 0000 Signed Impressions: Service Date/Time: Monday, July 27, 2015 14:43 - CONCLUSION: Uncomplicated gastrostomy tube exchange as above. Blaine Jackson MD Chest CT 07/11/15 0000 Signed Impressions: Service Date/Time: Saturday, July 11, 2015 09:49 - CONCLUSION: Scattered patchy densities significantly improved from previous study. Tiny anterior right basilar pneumothorax. Right-sided chest tube in good position. Néstor Matamoros MD Head CT 06/18/151902 Signed Impressions: Service Date/Time: June 19:31 - CONCLUSION: Diffuse atrophy unchanged. No acute intracranial findings. Kush Briscoe MD Abdomen/Pelvis CT 06/18/151902 Signed Impressions: Service Date/Time: June 19:36 - CONCLUSION: 1. Chronic nonspecific urinary bladder wall thickening. Bladder collapsed with Valdez catheter in place. 2. Chronic bilateral mid to lower lung zone groundglass opacity. 3. Nonobstructing left renal calculus. 4. Distended rectum. Kush Briscoe MD Physical Exam GENERAL: looks comfortable, NAd SKIN: No generalized rashes. Cool and dry. HEENT: Mullin conjunctivae, no icterus, moist mucosa NECK: Trach site looks ok. CARDIOVASCULAR: No murmur appreciated. RESPIRATORY: Coarse BS razia, decreased at bases GASTROINTESTINAL: Abdomen soft, non-tender, mildly distended. PEG tube site with no evidence of infection. MUSCULOSKELETAL: Increased tone in all extremities. Rigidity noted. NEUROLOGICAL: Opens eyes spontaneously. No verbal response does, not follow commands. Peripheral IV line sites with no evidence of infection. ; Valdez in place, urine looks clear Assessment & Plan Remarks Acute tracheobronchitis. ESBL Kleb pneumo and PSAE. Chest x-ray is negative, sputum purulent Acute on chronic respiratory failure was on trach and had to be placed on ventilator. - S/P upsizing of his trach Acute encephalopathy sepsis but has an underlying diagnosis of advanced dementia as well as advanced Parkinson's disease. Prior history of ESBL UTI - UC now with low colony count yeast and PSAE, valdez changed Urine Cx first one from old valdez with ESBL: likely colonization. Funguria likely colonization. Not being treated and clinically improved. Prior history of MRSA colonization. Status post trach Status post gastrostomy tube with no evidence of infection. Stage II sacral decubitus ulcer present on admission. Recommendations Continue meropenem to cover both ESBL and PSAE x 10-14 days - anticipated end date August 19 Monitor progress Monitor temps Weaning per CCM Bhavna Weeks MD Aug 17, 2015 14:04
[2015-08-17] MEDS: OLANZapine 5 MG TAB GT SCH (20:54)
[2015-08-17] MEDS: ENOXAPARIN SODIUM 40 MG/0.4 ML SYRINGE SQ SCH (20:54)
[2015-08-18] VITALS (18 sets, daily range): BP systolic 81–119; BP diastolic 53–73; PULSE 81–105; RESP 18–34; TEMP 98.7–102; O2SAT 96–100
[2015-08-18] MEDS: RESP: ALBUTEROL 2.5 MG/IPRATROPIUM 0.5 MG NEB (SCH) NEB ×3 (03:43→15:32)
[2015-08-18] MEDS: CHLORHEXIDINE GLUCONATE 2 % 1 PACK (2 CLOTHS) TOP SCH (04:00)
[2015-08-18 04:15] LABS: AUTOMATED NEUTROPHIL # 4.8 TH/MM3 (1.8-7.7); BASOPHIL # 0.1 TH/MM3 (0-0.2); BASOPHIL % 0.7 % (0.0-2.0); EOSINOPHIL % 12.5 % (0.0-4.0); HEMATOCRIT 29.5 % (39.0-51.0); HEMO FLAGS DIFF FINAL; LYMPH % 19.6 % (9.0-44.0); LYMPHOCYTE # 1.6 TH/MM3 (1.0-4.8); MEAN CELL VOLUME 88.8 FL (80.0-100.0); MEAN CORPUSCULAR HEMOGLOBIN 28.5 PG (27.0-34.0); MEAN CORPUSCULAR HGB CONC 32.1 % (32.0-36.0); MONO % 8.3 % (0.0-8.0); NEUT % 58.9 % (16.0-70.0); PLATELET COUNT 203 TH/MM3 (150-450); RED BLOOD COUNT 3.33 MIL/MM3 (4.50-5.90); RED CELL DISTRIBUTION WIDTH 13.9 % (11.6-17.2); WHITE BLOOD COUNT 8.2 TH/MM3 (4.0-11.0)
[2015-08-18 04:40] LABS: MAGNESIUM 2.3 MG/DL (1.5-2.5); POTASSIUM 3.8 MEQ/L (3.5-5.1)
[2015-08-18] MEDS: CARBIDOPA/LEVODOPA 25 MG/100 MG TAB GT SCH ×3 (05:12→21:04)
[2015-08-18] MEDS: clonazePAM 1 MG TAB PO SCH ×3 (05:12→21:04)
[2015-08-18] MEDS: SODIUM CHLORIDE 0.9% FLUSH 5 ML FLUSH IVF PRN (05:13)
[2015-08-18] MEDS: MEROPENEM INJ 1,000 MG in SODIUM CHLORIDE 0.9% INJ 100 ML IV SCH ×3 (05:13→21:04)
[2015-08-18] MEDS: HYOSCYAMINE SOLN 0.125 MG/ML 15 ML BTL PO SCH ×3 (05:13→21:04)
[2015-08-18] MEDS: MORPHINE SULFATE 4 MG/ML INJ IV PUSH PRN (05:13)
--- NOTE | 2015-08-18 07:34 | HHI.CCPN ---
Subjective Remarks/Hospital Course 06/17: Pt is a 54 yr man with multiple medial problems including Parkinson's disease, advanced dementia, hyponatremia, anxiety, pneumonia, GERD, cognitive disorder, and multidrug resistant UTI- ESBL02/19/15 , who resides in a retirement. Pt by report was found by staff in retirement to be less alert and having respiratory difficultly and fevers. Pt was brought to ED adn placed on ventilator. His workup was inclusive of labs, chest xray and ct head and abd/pelvis. WBC 16.4, +UTI, lactic acid 4, troponin ,0.02, BUN/ cre 18/ 0.76. CT head 06/18/15: diffuse atrophy unchanged. No acute intracranial findings ct abd/ pelvis with IV contrast: 06/18/15 Conclusion: 1. Chronic nonspecific urinary bladder wall thickening. Bladder collapsed with Putnam catheter in place. 2.Chronic bilateral mid to lower zone groundglass opacity. 3. Nonobstructing left renal calculus. 4. Distended rectum Pt admitted and fluid and abx ordered. 06/18: Drowsy, easily arousable. On mechanical ventilation via tracheostomy. Tachypneic. Resting tremor noted. 06/19: Drowsy, arousable. On mechanical ventilation via tracheostomy. 06/20: Drowsy, arousable. Remains on mechanical ventilation via tracheostomy. We'll repeat blood cultures, UA and urine cultures. Fluconazole IV added in view of yeast in urine. 07/06: Reconsulted as patient return to the ventilator on a right ventricular due to tachypnea. Low-grade temperatures. Tolerating tube feeding. Extremity encephalopathic demented patient with difficult neurological examination. 07/07: Status post chest tube placement by IR for right pneumothorax 07/06. Afebrile. Tolerating tube feeds. Positive BM. Currently tachypneic on the ventilator. Does not appear to be any acute distress. 07/08: Afebrile. Tolerating tube feeding. He is comfortable currently on CPAP trials 11/10. Positive BM. 07/09: Afebrile. Tolerating tube feeding. Appears comfortable on T bar. Positive BM. 07/10: Afebrile. Eyes are open. Remained on T piece overnight. Tolerating tube feeding. 07/11: MAXIMUM TEMPERATURE 100. Currently 98.6. Eyes are open. On ACV overnight secondary to "tachypnea and sweating". Switching back to PSV trials today. Goal is T piece during daytime, CPAP at night. 07/12: No acute events overnight. On PSV 15/5 -attempt TP up to 6 hours today. No pneumothorax on chest x-ray 07/13: Placed back on full ventilator support for tachypnea. Otherwise clinically unchanged. No fever today 07/14: Patient was on T piece yesterday evening, placed back on PSV overnight, patient mechanical ventilation this morning. Patient appears to be struggling with mechanical ventilation. Patient placed back on PSV with improvement 07/15: Patient placed back on mechanical ventilation last evening due to respiratory rate. It was indicated patient was tachypnea can the 40s. Patient on mechanical ventilation this time with respiration rate mid 20s. Chest tube still in place without any output, chest x-ray still indicating resolution of pneumothorax. 07/16: Patient seen and examined today. Patient placed back on mechanical ventilation overnight due to respiratory rate. Even on mechanical ventilation patient has respiration rate in the 30s. Patient afebrile, blood pressure stable. Continue vent weaning 07/17: Patient seen and examined. Currently afebrile. Currently on CPAP 15/5 @ 40%. Patient is awake with open mouth resting in bed in no apparent acute distress. Tolerating tube feeding. 2 bowel movements. 07/18: No neurological changes. Afebrile. 2 bowel moments. Tolerating tube feeding. We'll attempt TP trials today. On CPAP since 07/15 07/19 No events overnight. On CPAP with PS: 10, PEEP: 5 and FIO2 35%. Afebrile. On no sedation. 07/20 No events overnight. Tolerating CPAP. Afebrile. 07/21: Remains on CPAP. Attempt T piece trial today. Afebrile. One bowel movement. Tolerating tube feeding. 07/22: Afebrile. Positive BM. Tolerating tube feeding. Noted switched tracheostomy to #6 Shiley cuffed fenestrated. Neurologically unchanged 07/23: Afebrile. Positive BM. Tolerating tube feeding. Questionable leak in exchange trach. Place back on a rate/ACV overnight. Insufflated seems to be doing better at the present time. Will check chest x-ray. Possible he might need #6 XLT versus replacement of chronic #8 Shiley. 07/24: Tolerating TP today, RR in low 30s patient appears comfortable. No acute events overnight 07/25: Remains off the ventilator more than 36 hours now. Intermittently tachypneic probably breathing. Chest x-ray was clear yesterday. No acute events reported overnight. PEG not functioning per RN 08/02: Patient was transferred back to critical care service due to continuing ventilator management, tachypnea. Patient clinical status with no significant change. Patient with low-grade fever 100.2, 08/03: Patient seen and examined today. No significant change in clinical status. Patient still with chronic tachypnea. Patient afebrile now. 08/04: Patient seen and examined today. No change in clinical status. Patient still continues to have chronic tachypnea. Patient afebrile. Continue vent weaning 08/05: Patient seen and examined today. Patient had chest tube removed yesterday , chest x-ray shows redevelopment of pneumothorax. Chest tube replaced. Otherwise, patient still on ventilator with tachypnea. Afebrile 08/06: Patient seen and examined today. Patient went to have chest tube placed, repeat chest x-ray did not indicate any pneumothorax. No overnight events. We' ll need to pursue LTAC placement 08/07 No events overnight. On ventilator via trach. Afebrile. 08/08 Patient tolerated CPAP x4 hrs yesterday. Afebrile. On no sedation. 08/09 No events overnight. Tolerated CPAP x 12 hrs yesterday. Afebrile. 08/10 Patient tolerated TP's x 12 hrs yesterday back on ACV overnight. 08/11 No events overnight, currently on TP's with 40% FIO2. Afebrile. 08/12 On CPAP 10/5. Tolerated Tpiece 3 hours earlier today. Afebrile. 08/13 On CPAP 10/5. Not tolerating CPAP as well over last few days and RT notes challenge with suctioning respiratory secretions adequately. Discussing with healthcare proxy regarding exchange trach to 8.0. 08/14 Nursing and RT staff having continued difficulty suctioning respiratory secretions via 6.0 tracheostomy. KAREN Garcia did not consent to stoma dilation and trach upsize yesterday but said she would call back and let me know but no return call. Contacted again today and left a message. Afebrile. On CPAP 10/5. Brow furrowing on exam, appears to be in pain but pain not localizable. Tolerating tube feeds, had BM yesterday Subjective: 08/15 Not tolerating CPAP today. Contacted healthcare surrogate again and discussed need for trach change. She consented and trach was dilated and up- sized to 8.0 Distal XLT to facilitate pulmonary toilet and to address volume leak. 08/16 No events overnight. Remains on ventilator via trach. Afebrile. Tolerating TF. 08/17 No events overnight. Afebrile. Objective - Vital Signs Date Time Temp Pulse Resp B/P Pulse Ox O2 Delivery O2 Flow Rate FiO2 08/18/15 06:00 102 08/18/15 04:10 97 35 08/18/15 04:00 99.2 20 97/64 08/17/15 20:30 Mechanical Ventilator Intake and Output 08/17/15 08/17/15 08/17/15 07:59 15:59 23:59 Intake Total 651 ml 768 ml 797 ml Output Total 550 ml 950 ml 800 ml Balance 101 ml -182 ml -3 ml Result Diagram: 08/18/15 0347 08/18/15 0347 Other Results Laboratory Tests Test 08/18/15 03:47 White Blood Count 8.2 TH/MM3 Red Blood Count 3.33 MIL/MM3 Hemoglobin 9.5 GM/DL Hematocrit 29.5 % Mean Corpuscular Volume 88.8 FL Mean Corpuscular Hemoglobin 28.5 PG Mean Corpuscular Hemoglobin 32.1 % Concent Red Cell Distribution Width 13.9 % Platelet Count 203 TH/MM3 Mean Platelet Volume 9.9 FL Neutrophils (%) (Auto) 58.9 % Lymphocytes (%) (Auto) 19.6 % Monocytes (%) (Auto) 8.3 % Eosinophils (%) (Auto) 12.5 % Basophils (%) (Auto) 0.7 % Neutrophils # (Auto) 4.8 TH/MM3 Lymphocytes # (Auto) 1.6 TH/MM3 Monocytes # (Auto) 0.7 TH/MM3 Eosinophils # (Auto) 1.0 TH/MM3 Basophils # (Auto) 0.1 TH/MM3 CBC Comment DIFF FINAL Differential Comment Sodium Level 147 MEQ/L Potassium Level 3.8 MEQ/L Chloride Level 104 MEQ/L Carbon Dioxide Level 38.0 MEQ/L Anion Gap 5 MEQ/L Blood Urea Nitrogen 18 MG/DL Creatinine 0.49 MG/DL Estimat Glomerular Filtration 179 ML/MIN Rate Random Glucose 114 MG/DL Calcium Level 9.5 MG/DL Phosphorus Level 3.7 MG/DL Magnesium Level 2.3 MG/DL Imaging Last Impressions Chest X-Ray 08/16/15 0000 Signed Impressions: Service Date/Time: Sunday, August 16, 2015 15:33 - CONCLUSION: No acute disease. Jeramie Manjarrez MD Tunnelled Chest Tube Removal 08/05/15 1100 Signed Impressions: Service Date/Time: Wednesday, August 05, 2015 11:00 - CONCLUSION: Uncomplicated chest tube removal. Blaine Jackson MD Chest Tube Change 07/31/15 0000 Signed Impressions: Service Date/Time: Friday, July 31, 2015 14:34 - CONCLUSION: Uncomplicated reposition of previously placed chest tube as above. Blaine Jackson MD Chest Tube Insertion 07/30/15 0000 Signed Impressions: Service Date/Time: July 14:50 - CONCLUSION: Uncomplicated chest tube placement as above. Blaine Jackson MD Catheter Change 07/27/15 0000 Signed Impressions: Service Date/Time: Monday, July 27, 2015 14:43 - CONCLUSION: Uncomplicated gastrostomy tube exchange as above. Blaine Jackson MD Chest CT 07/11/15 0000 Signed Impressions: Service Date/Time: Saturday, July 11, 2015 09:49 - CONCLUSION: Scattered patchy densities significantly improved from previous study. Tiny anterior right basilar pneumothorax. Right-sided chest tube in good position. Néstor Matamoros MD Head CT 06/18/151902 Signed Impressions: Service Date/Time: June 19:31 - CONCLUSION: Diffuse atrophy unchanged. No acute intracranial findings. Kush Briscoe MD Abdomen/Pelvis CT 06/18/151902 Signed Impressions: Service Date/Time: June 19:36 - CONCLUSION: 1. Chronic nonspecific urinary bladder wall thickening. Bladder collapsed with Putnam catheter in place. 2. Chronic bilateral mid to lower lung zone groundglass opacity. 3. Nonobstructing left renal calculus. 4. Distended rectum. Kush Briscoe MD Objective Remarks GENERAL: 54-year-old male, cachectic, brow furrowing, appears uncomfortable on mechanical ventilation. HEENT: NC/AT. PERRL. MMM dry and pink. NECK: No JVD. 6.[address] with air leak. Very difficult to pass suction catheter. CARDIAC: RRR. S1/S2. No S4. No murmurs, clicks gallops or rubs. LUNGS: Tachypneic with bilateral rhonchi, no wheeze. ABDOMEN: S/NT/ND. Bowel sounds present. EXTREMITIES: No significant peripheral edema, pulses are equal bilaterally. NEUROLOGY: Patient with significant contractures of the right lower extremity, upper extremities. Eyes open spontaneously. Muscle wasting face, bilateral upper and lower extremities Procedures 07/26- PEG replacement 07/29- right pigtail catheter placement for new pneumothorax 07/29 Date of Insertion: Jul 30, 2015 A/P Assessment and Plan Neuro/Psych: Toxic metabolic Encephalopathy - chronic Parkinson's disease Cognitive disorder/Underlying dementia Depression CT head 06/18/15: - diffuse atrophy unchanged. No acute intracranial findings Continue Sinemet 25/100 q8 via PEG, Seroquel 50 mg twice a day, olanzapine 5 mg a night, Klonopin 2 mg every 8 hours, Paxil 20 daily and Neurontin 300 mg twice a day. These are manager long term care home meds, dose of antipsychotics have been titrated up slightly since admit. Continue Lortab when necessary pain and fentanyl patch 50 g every 3 days for pain management. Fentanyl bolus prn breakthrough pain or if needed for turning/ nursing care/etc. Resp: Acute on chronic respiratory failure Chronic trach, Pneumonia Right pneumothorax status post pigtail catheter (resolved) Continue with vent support keep sat >92% Daily CPAP trials with transition to Tpiece as tolerated. Pulmonary Dr. Gaurav corey following. Pulm toilet, trach care. Exchanged to 8 Distal XLT Duo nebs every 6 hours when necessary Status post chest tube replacement by interventional radiology on 07/30, chest tube removed 08/04, repeat films do not indicate any pneumothorax Cardiac History of orthostasis History of CAD, HLP, Hypertension Continue Midodrine 5 mg twice a day Monitor HR and BP keep MAP>65mmHg GI: Malnutrition/protein calorie - moderate Status post PEG Hemorrhoids Gastroesophageal reflux disease - Tolerating Jevity 1.5 at 60 cc an hour per nutrition recommendations - Currently Prevacid 30 mg per PEG tube daily for GERD - Current Colace/senna for bowel regimen. FEN/renal: Nonobstructing left renal calculus Hypernatremia - Monitor renal function, I/O's. electrolytes replacement per protocol. -Place on Free H20 200ml Q12 monitor Na level. ID: Candiduria ESBL positive Klebsiella/Pseudomonas pneumonia MRSA colonization sepsis UTI Klebsiella ESBL positive (has been treated) Continue with abx per ID ( Merrem 08/11 - stop date anticipated 08/19. ) On Lactinex Urine culture: 08/02 Klebsiella pneumonia ESBL positive Urine culture: 08/02 Heena Tropicalis, C. Glabrata Sputum culture: 08/02 Pseudomonas, Klebsiella pneumonia ESBL positive Blood culture: 08/02 yeast species, Heena glabrata, Heena tropicalis - History of Multidrug resistant UTI- ESBL 02/19/15 , MRSA + 03/20/15 - Heena glabrata in urine 03/19/15 - Rechecked blood, sputum and urine cultures 07/06 no growth - 06/17 - blood cultures 2 - CONS/staph epi - 06/17 - sputum - ESBL positive Klebsiella/Pseudomonas Treated 15 days with tobramycin aerosols twice a day. - 06/17 - urine - C. glabrata/tropicalis - treated with Diflucan Endo: Euglycemic. Not requiring sliding scale Heme Anemia - Monitor CBC MSK Bilateral lower extremity Contractures Stage II sacral decubitus present on admission - Wound care evaluate and treat - Continue physical therapy Prophylaxis - GI - Prevacid - DVT - SCDs/ Lovenox. CCT 30 mins Antonio Carr MD Aug 18, 2015 07:34
[2015-08-18] MEDS: FREE WATER G-TUBE SCH ×2 (09:00→21:03)
[2015-08-18] MEDS: ACETAMINOPHEN 650 MG/20.3 ML UDC TUBE PRN (09:13)
[2015-08-18] MEDS: SENNOSIDES SYRUP 8.8 MG/5 ML CUP PO SCH (09:13)
[2015-08-18] MEDS: LANSOPRAZOLE SOLUTAB 30 MG TAB NG SCH (09:13)
[2015-08-18] MEDS: GABAPENTIN 300 MG CAP G-TUBE SCH ×2 (09:13→21:04)
[2015-08-18] MEDS: PARoxetine HCL 20 MG TAB G-TUBE SCH (09:13)
[2015-08-18] MEDS: MIDODRINE 5 MG TAB G-TUBE SCH ×2 (09:13→21:04)
[2015-08-18] MEDS: LACTOBACILLUS ACIDOPHILUS TAB PO SCH ×3 (09:13→17:40)
[2015-08-18] MEDS: QUEtiapine FUMARATE 25 MG TAB G-TUBE SCH ×2 (09:13→21:03)
[2015-08-18] MEDS: SODIUM CHLORIDE 0.9% FLUSH 5 ML FLUSH IVF SCH ×2 (09:14→21:00)
[2015-08-18] MEDS: CHLORHEXIDINE 0.12% (ORAL KIT) 15 ML CUP MT SCH ×2 (09:14→21:03)
[2015-08-18] MEDS: ARTIFICIAL TEARS OPTH SOLN 15 ML BTL EACH EYE SCH ×3 (09:14→17:40)
--- NOTE | 2015-08-18 09:54 | HHI.IDPN ---
Subjective Subjective Remarks ID COVERAGE FOR DR Enoc PUENTES Chart reviewed Mr. Froeman is a 54-year-old male with past medical history significant for Parkinson's disease, advanced dementia, hyponatremia, history of ESBL UTI. Admitted with sepsis. Now with Pneumonia, UTI and staph bacteremia Notes reviewed Temps up to 102 currently D/W RN Has a lot of secretions Had upsizing of his trach this weekend On the vent Did not tolerate CPAP yesterday BP ok Slightly tachypneic this morning No diarrhea Antibiotics meropenem Lines Line sites with no e/o infection Past Medical History reviewed Allergies: Coded Allergies: *MDRO Multi-Drug Resistant Organism (Verified Adverse Reaction, Unknown, ) ESBL E. coli (urine) - 02/19/2015; ESBL K. pneumoniae (sputum) - 06/18/15, (urine) - 08/03/15, (sputum) - 08/03/15 MRSA PCR POSITIVE - 03/20/2015 Objective . Vital Signs Date Time Temp Pulse Resp B/P Pulse Ox O2 Delivery O2 Flow Rate FiO2 08/18/15 06:00 102 08/18/15 04:10 97 35 08/18/15 04:00 83 08/18/15 04:00 35 08/18/15 04:00 99.2 83 20 97/64 98 08/18/15 02:15 81 08/18/15 01:00 98 35 08/18/15 00:00 99.0 84 18 94/62 97 08/18/15 00:00 35 08/18/15 00:00 83 08/17/15 22:00 99 35 08/17/15 22:00 98 08/17/15 20:30 100 08/17/15 20:30 35 08/17/15 20:30 92 Mechanical Ventilator 35 08/17/15 20:11 93 35 08/17/15 20:00 99.0 94 20 101/71 99 08/17/15 18:00 99 08/17/15 16:16 98 35 08/17/15 16:00 99.1 98 18 92/55 99 08/17/15 16:00 35 08/17/15 16:00 98 08/17/15 14:00 93 08/17/15 13:16 97 35 08/17/15 12:00 35 08/17/15 12:00 99.0 92 21 93/61 100 08/17/15 12:00 92 08/17/15 10:11 99 35 08/17/15 10:00 92 08/17/15 08/17/15 08/18/15 15:00 23:00 07:00 Intake Total 768 ml 797 ml 723 ml Output Total 950 ml 800 ml 750 ml Balance -182 ml -3 ml -27 ml Intake Oral 0 ml 0 ml IV Total 200 ml 297 ml 171 ml Tube Feeding 508 ml 400 ml 452 ml Tube Irrigant 60 ml Other 100 ml 100 ml Output Urine Total 950 ml 800 ml 750 ml Gastric Drainage Total 0 ml Tube Feeding Residual Discard 0 ml # Bowel Movements 0 0 1 . Laboratory Tests Test 08/17/15 08/18/15 04:05 03:47 White Blood Count 8.5 TH/MM3 8.2 TH/MM3 Red Blood Count 3.26 MIL/MM3 3.33 MIL/MM3 Hemoglobin 9.3 GM/DL 9.5 GM/DL Hematocrit 29.0 % 29.5 % Mean Corpuscular Volume 88.9 FL 88.8 FL Mean Corpuscular Hemoglobin 28.5 PG 28.5 PG Mean Corpuscular Hemoglobin 32.0 % 32.1 % Concent Red Cell Distribution Width 13.6 % 13.9 % Platelet Count 191 TH/MM3 203 TH/MM3 Mean Platelet Volume 10.1 FL 9.9 FL Neutrophils (%) (Auto) 65.3 % 58.9 % Lymphocytes (%) (Auto) 13.6 % 19.6 % Monocytes (%) (Auto) 8.5 % 8.3 % Eosinophils (%) (Auto) 11.8 % 12.5 % Basophils (%) (Auto) 0.8 % 0.7 % Neutrophils # (Auto) 5.6 TH/MM3 4.8 TH/MM3 Lymphocytes # (Auto) 1.2 TH/MM3 1.6 TH/MM3 Monocytes # (Auto) 0.7 TH/MM3 0.7 TH/MM3 Eosinophils # (Auto) 1.0 TH/MM3 1.0 TH/MM3 Basophils # (Auto) 0.1 TH/MM3 0.1 TH/MM3 CBC Comment DIFF FINAL DIFF FINAL Differential Comment Laboratory Tests Test 08/17/15 08/18/15 04:05 03:47 Sodium Level 143 MEQ/L 147 MEQ/L Potassium Level 4.1 MEQ/L 3.8 MEQ/L Chloride Level 98 MEQ/L 104 MEQ/L Carbon Dioxide Level 41.3 MEQ/L 38.0 MEQ/L Anion Gap 4 MEQ/L 5 MEQ/L Blood Urea Nitrogen 16 MG/DL 18 MG/DL Creatinine 0.38 MG/DL 0.49 MG/DL Estimat Glomerular Filtration 240 ML/MIN 179 ML/MIN Rate Random Glucose 111 MG/DL 114 MG/DL Calcium Level 9.7 MG/DL 9.5 MG/DL Phosphorus Level 3.7 MG/DL Magnesium Level 2.3 MG/DL Imaging Chest X-Ray 08/16/15 0000 Signed Impressions: Service Date/Time: Sunday, August 16, 2015 15:33 - CONCLUSION: No acute disease. Jeramie Manjarrez MD Tunnelled Chest Tube Removal 08/05/15 1100 Signed Impressions: Service Date/Time: Wednesday, August 05, 2015 11:00 - CONCLUSION: Uncomplicated chest tube removal. Blaine Jackson MD Chest Tube Change 07/31/15 0000 Signed Impressions: Service Date/Time: Friday, July 31, 2015 14:34 - CONCLUSION: Uncomplicated reposition of previously placed chest tube as above. Blaine Jackson MD Chest Tube Insertion 07/30/15 0000 Signed Impressions: Service Date/Time: July 14:50 - CONCLUSION: Uncomplicated chest tube placement as above. Blaine Jackson MD Catheter Change 07/27/15 0000 Signed Impressions: Service Date/Time: Monday, July 27, 2015 14:43 - CONCLUSION: Uncomplicated gastrostomy tube exchange as above. Blaine Jackson MD Chest CT 07/11/15 0000 Signed Impressions: Service Date/Time: Saturday, July 11, 2015 09:49 - CONCLUSION: Scattered patchy densities significantly improved from previous study. Tiny anterior right basilar pneumothorax. Right-sided chest tube in good position. Néstor Matamoros MD Head CT 06/18/151902 Signed Impressions: Service Date/Time: June 19:31 - CONCLUSION: Diffuse atrophy unchanged. No acute intracranial findings. Kush Briscoe MD Abdomen/Pelvis CT 06/18/151902 Signed Impressions: Service Date/Time: June 19:36 - CONCLUSION: 1. Chronic nonspecific urinary bladder wall thickening. Bladder collapsed with Valdez catheter in place. 2. Chronic bilateral mid to lower lung zone groundglass opacity. 3. Nonobstructing left renal calculus. 4. Distended rectum. Kush Briscoe MD Physical Exam GENERAL: Slightly tachypneic, eyes open, not following commands, on the vent SKIN: No generalized rashes. Cool and dry. HEENT: [place] conjunctivae, no icterus, moist mucosa NECK: Trach site looks ok. CARDIOVASCULAR: No murmur appreciated. RESPIRATORY: Coarse BS razia, decreased at bases GASTROINTESTINAL: Abdomen soft, non-tender, mildly distended. PEG tube site with no evidence of infection. MUSCULOSKELETAL: Increased tone in all extremities. Rigidity noted. Edema in both hands. No pedal edema NEUROLOGICAL: Opens eyes spontaneously. No verbal response does, not follow commands. Peripheral IV line sites with no evidence of infection. ; Valdez in place, urine looks clear Assessment & Plan Remarks New fevers Acute tracheobronchitis. ESBL Kleb pneumo and PSAE. Chest x-ray is negative, sputum purulent Acute on chronic respiratory failure was on trach and had to be placed on ventilator. - S/P upsizing of his trach Acute encephalopathy sepsis but has an underlying diagnosis of advanced dementia as well as advanced Parkinson's disease. Prior history of ESBL UTI - UC now with low colony count yeast and PSAE, valdez changed Urine Cx first one from old valdez with ESBL: likely colonization. Funguria likely colonization. Not being treated and clinically improved. Prior history of MRSA colonization. Status post trach Status post gastrostomy tube with no evidence of infection. Stage II sacral decubitus ulcer present on admission. Recommendations Continue meropenem to cover both ESBL and PSAE x 10-14 days Repeat C/S today Repeat CXR Give dose of Vancomycin Add Diflucan Monitor progress Monitor temps Follow C/S and adjust Abx Weaning per CCM D/W Bhavna Piedra MD Aug 18, 2015 09:54
[2015-08-18] MEDS ORDERED: VANCOMYCIN INJ 1,000 MG in SODIUM CHLOR 0.9% 250 ML INJ 250 ML IV ONE (10:00)
--- NOTE | 2015-08-18 10:20 | RADRPT ---
EXAM DATE/TIME: 08/18/2015 09:58 [facility] COMPARISON: CHEST SINGLE AP, August 16, 2015, 15:33. INDICATIONS : Fever. MEDICAL HISTORY : None. SURGICAL HISTORY : None. ENCOUNTER: Initial ACUITY: 1 day PAIN SCORE: Non-responsive. LOCATION: Bilateral chest FINDINGS: A single view of the chest demonstrates the lungs to be symmetrically aerated without evidence of mas s, infiltrate or effusion. The tracheostomy tube remains in place. The cardiomediastinal contours are unremarkable. Osseous structures are intact. There are multiple overlying electrocardiogram leads a nd tubing. CONCLUSION: No evidence of pneumonia. There is overlying artifact. Salazar Thurman MD on August 18, 2015 at 10:17 Board Certified Radiologist. This report was verified electronically.
[2015-08-18] MEDS: FLUCONAZOLE 200 MG PREMIX BAG 100 ML IV SCH (11:23)
--- NOTE | 2015-08-18 12:17 | HHI.PR ---
Subjective Remarks Remains on CPAP. tachypneic .Needs vent support at HS, and sometimes during the day.. Sat 96 on 35 %. Febrile now. Remains Lethargic. Objective Vital Signs Date Time Temp Pulse Resp B/P Pulse Ox O2 Delivery O2 Flow Rate FiO2 08/18/15 10:38 35 08/18/15 10:30 35 08/18/15 10:30 100 35 08/18/15 10:00 105 08/18/15 08:00 35 08/18/15 08:00 105 08/18/15 08:00 102.0 105 23 119/66 97 08/18/15 06:00 102 08/18/15 04:10 97 35 08/18/15 04:00 83 08/18/15 04:00 35 08/18/15 04:00 99.2 83 20 97/64 98 08/18/15 02:15 81 08/18/15 01:00 98 35 08/18/15 00:00 99.0 84 18 94/62 97 08/18/15 00:00 35 08/18/15 00:00 83 08/17/15 22:00 99 35 08/17/15 22:00 98 08/17/15 20:30 100 08/17/15 20:30 35 08/17/15 20:30 92 Mechanical Ventilator 35 08/17/15 20:11 93 35 08/17/15 20:00 99.0 94 20 101/71 99 08/17/15 18:00 99 08/17/15 16:16 98 35 08/17/15 16:00 99.1 98 18 92/55 99 08/17/15 16:00 35 08/17/15 16:00 98 08/17/15 14:00 93 08/17/15 13:16 97 35 I/O 08/17/15 08/17/15 08/17/15 08/18/15 08/18/15 08/18/15 07:00 15:00 23:00 07:00 15:00 23:00 Intake Total 651 ml 768 ml 797 ml 723 ml Output Total 550 ml 950 ml 800 ml 750 ml Balance 101 ml -182 ml -3 ml -27 ml Intake Oral 0 ml 0 ml IV Total 179 ml 200 ml 297 ml 171 ml Tube Feeding 442 ml 508 ml 400 ml 452 ml Tube Irrigant 60 ml Other 30 ml 100 ml 100 ml Output Urine Total 550 ml 950 ml 800 ml 750 ml Gastric Drainage Total 0 ml Tube Feeding Residual Discard 0 ml 0 ml # Bowel Movements 0 0 0 1 Result Diagram: 08/18/1534608/18/15346 Objective Remarks This is a thin white male who in on the vent with a trach tube in place. HEENT: Pupils are equal and reactive to light.Throat is clear. CHEST: Bilateral wheeze with basal crackles. Decreased breath sounds . CARDIOVASCULAR: S1 and S2 is normal. ABDOMEN: Soft, nondistended. He has a PEG tube in place. EXTREMITIES: No edema.muscle wasting. NEURO: Lethargic and Does not move his extremities . Assessment and Plan Assessment and Plan IMPRESSION 1. Respiratory failure, ventilator dependent 2. Sepsis 3. UTI 4. Tracheobronchitis 5. Parkinson's disease 6. Dementia. 7. Severe Deconditioning. 8. Left Pneumothorax. Resolved. Plan : 1. A/C rate 10 at HS PEEP + 5, FIO2 35 %. 2. Nebs qid , duoneb. 3. Antibiotics per ID. 4. Cont CPAP 06/20 during the day. 5. Levsin .125 mg tid. 6. Ativan .5 mg q6h prn. 7. Cont Tube feeds at 60 CC 8. Lovenox 40 Mg S/Q daily. Darren Kiser MD Aug 18, 2015 12:17
[2015-08-18 13:49] LABS: BACTERIA, URINE FEW /hpf; BLOOD, URINE MOD (NEG); COMMENT (UR) CATH-CULTURE IND; CULTURE IF INDICATED CATH CULTURE IND; GLUCOSE,URINE NEG (NEG); KETONE, URINE NEG (NEG); MUCUS URINE FEW /lpf (OCC); NITRITE,URINE NEG (NEG); PH, URINE 7.5 (5.0-8.5); SQUAMOUS EPITHELIAL CELL URINE <1 /hpf (0-5); URINE COLOR YELLOW (YELLW/STRAW)
[2015-08-18] MEDS ORDERED: SODIUM CHLORID 0.9% 500 ML INJ 500 ML IV ONE (17:45)
[2015-08-18 21:01] LABS: MEAN CORPUSCULAR HGB CONC 30.6 % (32.0-36.0)
[2015-08-18] MEDS: ENOXAPARIN SODIUM 40 MG/0.4 ML SYRINGE SQ SCH (21:04)
[2015-08-18] MEDS: OLANZapine 5 MG TAB GT SCH (21:04)
[2015-08-19] VITALS (19 sets, daily range): BP systolic 86–122; BP diastolic 55–85; PULSE 72–97; RESP 17–33; TEMP 97.5–98.9; O2SAT 92–100
[2015-08-19] MEDS: CHLORHEXIDINE GLUCONATE 2 % 1 PACK (2 CLOTHS) TOP SCH (02:25)
[2015-08-19] MEDS: MEROPENEM INJ 1,000 MG in SODIUM CHLORIDE 0.9% INJ 100 ML IV SCH ×3 (05:29→20:31)
[2015-08-19] MEDS: CARBIDOPA/LEVODOPA 25 MG/100 MG TAB GT SCH ×3 (05:29→20:31)
[2015-08-19] MEDS: clonazePAM 1 MG TAB PO SCH ×3 (05:29→20:31)
[2015-08-19] MEDS: HYOSCYAMINE SOLN 0.125 MG/ML 15 ML BTL PO SCH ×3 (05:30→20:32)
[2015-08-19 07:23] LABS: AUTOMATED NEUTROPHIL # 10.3 TH/MM3 (1.8-7.7); BASOPHIL # 0.1 TH/MM3 (0-0.2); BASOPHIL % 0.7 % (0.0-2.0); EOSINOPHIL % 7.3 % (0.0-4.0); HEMATOCRIT 31.2 % (39.0-51.0); HEMO FLAGS DIFF FINAL; LYMPH % 7.8 % (9.0-44.0); MEAN CELL VOLUME 89.8 FL (80.0-100.0); MEAN CORPUSCULAR HEMOGLOBIN 27.5 PG (27.0-34.0); NEUT % 78.2 % (16.0-70.0); PLATELET COUNT 170 TH/MM3 (150-450); RED BLOOD COUNT 3.47 MIL/MM3 (4.50-5.90); RED CELL DISTRIBUTION WIDTH 13.9 % (11.6-17.2); WHITE BLOOD COUNT 13.1 TH/MM3 (4.0-11.0)
[2015-08-19 07:50] LABS: BICARBONATE 35.2 MEQ/L (21.0-32.0)
[2015-08-19] MEDS: REMOVE OLD PATCH TD SCH (08:00)
--- NOTE | 2015-08-19 08:01 | HHI.CCPN ---
Subjective Remarks/Hospital Course 06/17: Pt is a 54 yr man with multiple medial problems including Parkinson's disease, advanced dementia, hyponatremia, anxiety, pneumonia, GERD, cognitive disorder, and multidrug resistant UTI- ESBL02/19/15 , who resides in a detention. Pt by report was found by staff in detention to be less alert and having respiratory difficultly and fevers. Pt was brought to ED adn placed on ventilator. His workup was inclusive of labs, chest xray and ct head and abd/pelvis. WBC 16.4, +UTI, lactic acid 4, troponin ,0.02, BUN/ cre 18/ 0.76. CT head 06/18/15: diffuse atrophy unchanged. No acute intracranial findings ct abd/ pelvis with IV contrast: 06/18/15 Conclusion: 1. Chronic nonspecific urinary bladder wall thickening. Bladder collapsed with Putnam catheter in place. 2.Chronic bilateral mid to lower zone groundglass opacity. 3. Nonobstructing left renal calculus. 4. Distended rectum Pt admitted and fluid and abx ordered. 06/18: Drowsy, easily arousable. On mechanical ventilation via tracheostomy. Tachypneic. Resting tremor noted. 06/19: Drowsy, arousable. On mechanical ventilation via tracheostomy. 06/20: Drowsy, arousable. Remains on mechanical ventilation via tracheostomy. We'll repeat blood cultures, UA and urine cultures. Fluconazole IV added in view of yeast in urine. 07/06: Reconsulted as patient return to the ventilator on a right ventricular due to tachypnea. Low-grade temperatures. Tolerating tube feeding. Extremity encephalopathic demented patient with difficult neurological examination. 07/07: Status post chest tube placement by IR for right pneumothorax 07/06. Afebrile. Tolerating tube feeds. Positive BM. Currently tachypneic on the ventilator. Does not appear to be any acute distress. 07/08: Afebrile. Tolerating tube feeding. He is comfortable currently on CPAP trials 11/10. Positive BM. 07/09: Afebrile. Tolerating tube feeding. Appears comfortable on T bar. Positive BM. 07/10: Afebrile. Eyes are open. Remained on T piece overnight. Tolerating tube feeding. 07/11: MAXIMUM TEMPERATURE 100. Currently 98.6. Eyes are open. On ACV overnight secondary to "tachypnea and sweating". Switching back to PSV trials today. Goal is T piece during daytime, CPAP at night. 07/12: No acute events overnight. On PSV 15/5 -attempt TP up to 6 hours today. No pneumothorax on chest x-ray 07/13: Placed back on full ventilator support for tachypnea. Otherwise clinically unchanged. No fever today 07/14: Patient was on T piece yesterday evening, placed back on PSV overnight, patient mechanical ventilation this morning. Patient appears to be struggling with mechanical ventilation. Patient placed back on PSV with improvement 07/15: Patient placed back on mechanical ventilation last evening due to respiratory rate. It was indicated patient was tachypnea can the 40s. Patient on mechanical ventilation this time with respiration rate mid 20s. Chest tube still in place without any output, chest x-ray still indicating resolution of pneumothorax. 07/16: Patient seen and examined today. Patient placed back on mechanical ventilation overnight due to respiratory rate. Even on mechanical ventilation patient has respiration rate in the 30s. Patient afebrile, blood pressure stable. Continue vent weaning 07/17: Patient seen and examined. Currently afebrile. Currently on CPAP 15/5 @ 40%. Patient is awake with open mouth resting in bed in no apparent acute distress. Tolerating tube feeding. 2 bowel movements. 07/18: No neurological changes. Afebrile. 2 bowel moments. Tolerating tube feeding. We'll attempt TP trials today. On CPAP since 07/15 07/19 No events overnight. On CPAP with PS: 10, PEEP: 5 and FIO2 35%. Afebrile. On no sedation. 07/20 No events overnight. Tolerating CPAP. Afebrile. 07/21: Remains on CPAP. Attempt T piece trial today. Afebrile. One bowel movement. Tolerating tube feeding. 07/22: Afebrile. Positive BM. Tolerating tube feeding. Noted switched tracheostomy to #6 Shiley cuffed fenestrated. Neurologically unchanged 07/23: Afebrile. Positive BM. Tolerating tube feeding. Questionable leak in exchange trach. Place back on a rate/ACV overnight. Insufflated seems to be doing better at the present time. Will check chest x-ray. Possible he might need #6 XLT versus replacement of chronic #8 Shiley. 07/24: Tolerating TP today, RR in low 30s patient appears comfortable. No acute events overnight 07/25: Remains off the ventilator more than 36 hours now. Intermittently tachypneic probably breathing. Chest x-ray was clear yesterday. No acute events reported overnight. PEG not functioning per RN 08/02: Patient was transferred back to critical care service due to continuing ventilator management, tachypnea. Patient clinical status with no significant change. Patient with low-grade fever 100.2, 08/03: Patient seen and examined today. No significant change in clinical status. Patient still with chronic tachypnea. Patient afebrile now. 08/04: Patient seen and examined today. No change in clinical status. Patient still continues to have chronic tachypnea. Patient afebrile. Continue vent weaning 08/05: Patient seen and examined today. Patient had chest tube removed yesterday , chest x-ray shows redevelopment of pneumothorax. Chest tube replaced. Otherwise, patient still on ventilator with tachypnea. Afebrile 08/06: Patient seen and examined today. Patient went to have chest tube placed, repeat chest x-ray did not indicate any pneumothorax. No overnight events. We' ll need to pursue LTAC placement 08/07 No events overnight. On ventilator via trach. Afebrile. 08/08 Patient tolerated CPAP x4 hrs yesterday. Afebrile. On no sedation. 08/09 No events overnight. Tolerated CPAP x 12 hrs yesterday. Afebrile. 08/10 Patient tolerated TP's x 12 hrs yesterday back on ACV overnight. 08/11 No events overnight, currently on TP's with 40% FIO2. Afebrile. 08/12 On CPAP 10/5. Tolerated Tpiece 3 hours earlier today. Afebrile. 08/13 On CPAP 10/5. Not tolerating CPAP as well over last few days and RT notes challenge with suctioning respiratory secretions adequately. Discussing with healthcare proxy regarding exchange trach to 8.0. 08/14 Nursing and RT staff having continued difficulty suctioning respiratory secretions via 6.0 tracheostomy. KAREN Garcia did not consent to stoma dilation and trach upsize yesterday but said she would call back and let me know but no return call. Contacted again today and left a message. Afebrile. On CPAP 10/5. Brow furrowing on exam, appears to be in pain but pain not localizable. Tolerating tube feeds, had BM yesterday Subjective: 08/15 Not tolerating CPAP today. Contacted healthcare surrogate again and discussed need for trach change. She consented and trach was dilated and up- sized to 8.0 Distal XLT to facilitate pulmonary toilet and to address volume leak. 08/16 No events overnight. Remains on ventilator via trach. Afebrile. Tolerating TF. 08/17 No events overnight. Afebrile. 08/18 Patient tolerated CPAP x 4 hrs yesterday. Afebrile.On ventilator via trach. Objective - Vital Signs Date Time Temp Pulse Resp B/P Pulse Ox O2 Delivery O2 Flow Rate FiO2 08/19/15 07:38 35 08/19/15 07:38 100 08/19/15 06:00 94 08/19/15 04:00 98.7 24 115/79 08/17/15 20:30 Mechanical Ventilator Intake and Output 08/18/15 08/18/15 08/19/15 08:00 16:00 00:00 Intake Total 723 ml 1120 ml 1526 ml Output Total 750 ml 250 ml 750 ml Balance -27 ml 870 ml 776 ml Result Diagram: 08/19/15 0414 08/19/15 0414 Other Results Laboratory Tests Test 08/18/15 08/19/15 11:30 04:14 Urine Color YELLOW Urine Turbidity CLOUDY Urine pH 7.5 Urine Specific Kiefer 1.016 Urine Protein 30 mg/dL Urine Glucose (UA) NEG mg/dL Urine Ketones NEG mg/dL Urine Occult Blood MOD Urine Nitrite NEG Urine Bilirubin NEG Urine Urobilinogen 2.0 MG/DL Urine Leukocyte Esterase LARGE Urine RBC 70 /hpf Urine WBC 42 /hpf Urine Squamous Epithelial <1 /hpf Cells Urine Amorphous Sediment MOD Urine Bacteria FEW /hpf Urine Mucus FEW /lpf Urine Yeast with Hyphae FEW Microscopic Urinalysis Comment CATH-CULTURE IND White Blood Count 13.1 TH/MM3 Red Blood Count 3.47 MIL/MM3 Hemoglobin 9.5 GM/DL Hematocrit 31.2 % Mean Corpuscular Volume 89.8 FL Mean Corpuscular Hemoglobin 27.5 PG Mean Corpuscular Hemoglobin 30.6 % Concent Red Cell Distribution Width 13.9 % Platelet Count 170 TH/MM3 Mean Platelet Volume 11.1 FL Neutrophils (%) (Auto) 78.2 % Lymphocytes (%) (Auto) 7.8 % Monocytes (%) (Auto) 6.0 % Eosinophils (%) (Auto) 7.3 % Basophils (%) (Auto) 0.7 % Neutrophils # (Auto) 10.3 TH/MM3 Lymphocytes # (Auto) 1.0 TH/MM3 Monocytes # (Auto) 0.8 TH/MM3 Eosinophils # (Auto) 1.0 TH/MM3 Basophils # (Auto) 0.1 TH/MM3 CBC Comment DIFF FINAL Differential Comment Sodium Level 147 MEQ/L Potassium Level 4.0 MEQ/L Chloride Level 105 MEQ/L Carbon Dioxide Level 35.2 MEQ/L Anion Gap 7 MEQ/L Blood Urea Nitrogen 20 MG/DL Creatinine 0.43 MG/DL Estimat Glomerular Filtration 208 ML/MIN Rate Random Glucose 126 MG/DL Calcium Level 9.6 MG/DL Imaging Last Impressions Chest X-Ray 08/18/15 0000 Signed Impressions: Service Date/Time: Tuesday, August 18, 2015 09:58 - CONCLUSION: No evidence of pneumonia. There is overlying artifact. Salazar Thurman MD Tunnelled Chest Tube Removal 08/05/15 1100 Signed Impressions: Service Date/Time: Wednesday, August 05, 2015 11:00 - CONCLUSION: Uncomplicated chest tube removal. Blaine Jackson MD Chest Tube Change 07/31/15 0000 Signed Impressions: Service Date/Time: Friday, July 31, 2015 14:34 - CONCLUSION: Uncomplicated reposition of previously placed chest tube as above. Blaine Jackson MD Chest Tube Insertion 07/30/15 0000 Signed Impressions: Service Date/Time: July 14:50 - CONCLUSION: Uncomplicated chest tube placement as above. Blaine Jackson MD Catheter Change 07/27/15 0000 Signed Impressions: Service Date/Time: Monday, July 27, 2015 14:43 - CONCLUSION: Uncomplicated gastrostomy tube exchange as above. Blaine Jackson MD Chest CT 07/11/15 0000 Signed Impressions: Service Date/Time: Saturday, July 11, 2015 09:49 - CONCLUSION: Scattered patchy densities significantly improved from previous study. Tiny anterior right basilar pneumothorax. Right-sided chest tube in good position. Néstor Matamoros MD Head CT 5/01/21 1903 Signed Impressions: Service Date/Time: June 19:31 - CONCLUSION: Diffuse atrophy unchanged. No acute intracranial findings. Kush Briscoe MD Abdomen/Pelvis CT 06/18/151902 Signed Impressions: Service Date/Time: , June 18, 2015 19:36 - CONCLUSION: 1. Chronic nonspecific urinary bladder wall thickening. Bladder collapsed with Putnam catheter in place. 2. Chronic bilateral mid to lower lung zone groundglass opacity. 3. Nonobstructing left renal calculus. 4. Distended rectum. Kush Briscoe MD Objective Remarks GENERAL: 54-year-old male, cachectic, brow furrowing, appears uncomfortable on mechanical ventilation. HEENT: NC/AT. PERRL. MMM dry and pink. NECK: No JVD. 6.[address] with air leak. Very difficult to pass suction catheter. CARDIAC: RRR. S1/S2. No S4. No murmurs, clicks gallops or rubs. LUNGS: Tachypneic with bilateral rhonchi, no wheeze. ABDOMEN: S/NT/ND. Bowel sounds present. EXTREMITIES: No significant peripheral edema, pulses are equal bilaterally. NEUROLOGY: Patient with significant contractures of the right lower extremity, upper extremities. Eyes open spontaneously. Muscle wasting face, bilateral upper and lower extremities Procedures 07/26- PEG replacement 07/29- right pigtail catheter placement for new pneumothorax 07/29 Date of Insertion: Jul 30, 2015 A/P Assessment and Plan Neuro/Psych: Toxic metabolic Encephalopathy - chronic Parkinson's disease Cognitive disorder/Underlying dementia Depression CT head 06/18/15: - diffuse atrophy unchanged. No acute intracranial findings Continue Sinemet 25/100 q8 via PEG, Seroquel 50 mg twice a day, olanzapine 5 mg a night, Klonopin 2 mg every 8 hours, Paxil 20 daily and Neurontin 300 mg twice a day. 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 Continue Lortab when necessary pain and fentanyl patch 50 g every 3 days for pain management. Fentanyl bolus prn breakthrough pain or if needed for turning/ nursing care/etc. Resp: Acute on chronic respiratory failure Chronic trach, Pneumonia Right pneumothorax status post pigtail catheter (resolved) Continue with vent support keep sat >92% Daily CPAP trials with transition to Tpiece as tolerated. Pulmonary Dr. Gaurav corey following. Pulm toilet, [facility]. Exchanged to 8 Distal XLT Duo nebs every 6 hours when necessary Status post chest tube replacement by interventional radiology on 07/30, chest tube removed 08/04, repeat films do not indicate any pneumothorax Cardiac History of orthostasis History of CAD, HLP, Hypertension Continue Midodrine 5 mg twice a day Monitor HR and BP keep MAP>65mmHg GI: Malnutrition/protein calorie - moderate Status post PEG Hemorrhoids Gastroesophageal reflux disease - Tolerating Jevity 1.5 at 60 cc an hour per nutrition recommendations - Currently Prevacid 30 mg per PEG tube daily for GERD - Current Colace/senna for bowel regimen. FEN/renal: Nonobstructing left renal calculus Hypernatremia - Monitor renal function, I/O's. electrolytes replacement per protocol. -Change Free H20 200ml Q8, monitor Na level. ID: Candiduria ESBL positive Klebsiella/Pseudomonas pneumonia MRSA colonization sepsis UTI Klebsiella ESBL positive (has been treated) Continue with abx per ID ( Merrem 08/11 - stop date anticipated 08/19. ) Started on Diflucan and given Vanco x1 dose yesterday, On Lactinex Monitor for signs of infections ( Fever, WBC) follow up on cxs from 08/17- NGTD Urine culture: 08/02 Klebsiella pneumonia ESBL positive Urine culture: 08/02 Heena Tropicalis, C. Glabrata Sputum culture: 08/02 Pseudomonas, Klebsiella pneumonia ESBL positive Blood culture: 08/02 yeast species, Heena glabrata, Heena tropicalis - History of Multidrug resistant UTI- ESBL 02/19/15 , MRSA + 03/20/15 - Heena glabrata in urine 03/19/15 - Rechecked blood, sputum and urine cultures 07/06 no growth - 06/17 - blood cultures 2 - CONS/staph epi - 06/17 - sputum - ESBL positive Klebsiella/Pseudomonas Treated 15 days with tobramycin aerosols twice a day. - 06/17 - urine - C. glabrata/tropicalis - treated with Diflucan Endo: Euglycemic. Not requiring sliding scale Heme Anemia - Monitor CBC MSK Bilateral lower extremity Contractures Stage II sacral decubitus present on admission - Wound care evaluate and treat - Continue physical therapy Prophylaxis - GI - Prevacid - DVT - SCDs/ Lovenox. CCT 30 mins Bruno,Alaa MD Aug 19, 2015 08:01
[2015-08-19] MEDS: SODIUM CHLORIDE 0.9% FLUSH 5 ML FLUSH IVF SCH ×2 (09:00→20:31)
[2015-08-19] MEDS: SENNOSIDES SYRUP 8.8 MG/5 ML CUP PO SCH (09:00)
[2015-08-19] MEDS: FLUCONAZOLE 200 MG PREMIX BAG 100 ML IV SCH (10:03)
[2015-08-19] MEDS: QUEtiapine FUMARATE 25 MG TAB G-TUBE SCH ×2 (10:04→20:31)
[2015-08-19] MEDS: fentaNYL 50 MCG/HR PATCH TD SCH (10:05)
[2015-08-19] MEDS: GABAPENTIN 300 MG CAP G-TUBE SCH ×2 (10:06→20:31)
[2015-08-19] MEDS: PARoxetine HCL 20 MG TAB G-TUBE SCH (10:06)
[2015-08-19] MEDS: MIDODRINE 5 MG TAB G-TUBE SCH ×2 (10:06→20:31)
[2015-08-19] MEDS: LACTOBACILLUS ACIDOPHILUS TAB PO SCH ×3 (10:07→18:00)
[2015-08-19] MEDS: LANSOPRAZOLE SOLUTAB 30 MG TAB NG SCH (10:07)
[2015-08-19] MEDS: ARTIFICIAL TEARS OPTH SOLN 15 ML BTL EACH EYE SCH ×3 (10:09→18:00)
[2015-08-19] MEDS: CHLORHEXIDINE 0.12% (ORAL KIT) 15 ML CUP MT SCH ×2 (10:10→20:30)
--- NOTE | 2015-08-19 10:50 | HHI.IDPN ---
Subjective Subjective Remarks ID COVERAGE FOR DR Enoc PUENTES Chart reviewed Mr. Foreman is a 54-year-old male with past medical history significant for Parkinson's disease, advanced dementia, hyponatremia, history of ESBL UTI. Admitted with sepsis. Now with Pneumonia, UTI and staph bacteremia Notes reviewed Temps better overnight Tachypneic on the vent Has a lot of secretions BP ok No diarrhea CXR no PNA UA with mild pyuria Antibiotics meropenem Diflucan Vanco x 1 dose 08/17 Lines Line sites with no e/o infection Past Medical History reviewed Allergies: Coded Allergies: *MDRO Multi-Drug Resistant Organism (Verified Adverse Reaction, Unknown, ) ESBL E. coli (urine) - 02/19/2015; ESBL K. pneumoniae (sputum) - 06/18/15, (urine) - 08/03/15, (sputum) - 08/03/15 MRSA PCR POSITIVE - 03/20/2015 Objective . Vital Signs Date Time Temp Pulse Resp B/P Pulse Ox O2 Delivery O2 Flow Rate FiO2 08/19/15 07:38 35 08/19/15 07:38 100 35 08/19/15 06:00 94 08/19/15 04:14 99 35 08/19/15 04:00 92 08/19/15 04:00 98.7 92 24 115/79 92 08/19/15 04:00 35 08/19/15 02:00 86 08/19/15 00:20 97 35 08/19/15 00:00 97.5 92 21 100/65 97 08/19/15 00:00 35 08/19/15 00:00 92 08/18/15 22:25 98 35 08/18/15 22:00 92 08/18/15 20:01 99 35 08/18/15 20:00 35 08/18/15 20:00 85 08/18/15 20:00 98.7 85 30 110/73 99 08/18/15 18:00 85 08/18/15 16:53 97 35 08/18/15 16:50 35 08/18/15 16:00 99.3 93 25 81/53 96 08/18/15 16:00 93 08/18/15 14:00 96 08/18/15 12:00 35 08/18/15 12:00 97 08/18/15 12:00 98.8 97 34 94/54 96 08/18/15 08/18/15 08/19/15 14:59 22:59 06:59 Intake Total 1120 ml 1526 ml 579 ml Output Total 250 ml 750 ml 650 ml Balance 870 ml 776 ml -71 ml IV Total 330 ml 775 ml Tube Feeding 540 ml 551 ml 579 ml Other 250 ml 200 ml Output Urine Total 250 ml 750 ml 650 ml # Bowel Movements 1 . Laboratory Tests Test 08/18/15 08/19/15 03:47 04:14 White Blood Count 8.2 TH/MM3 13.1 TH/MM3 Red Blood Count 3.33 MIL/MM3 3.47 MIL/MM3 Hemoglobin 9.5 GM/DL 9.5 GM/DL Hematocrit 29.5 % 31.2 % Mean Corpuscular Volume 88.8 FL 89.8 FL Mean Corpuscular Hemoglobin 28.5 PG 27.5 PG Mean Corpuscular Hemoglobin 32.1 % 30.6 % Concent Red Cell Distribution Width 13.9 % 13.9 % Platelet Count 203 TH/MM3 170 TH/MM3 Mean Platelet Volume 9.9 FL 11.1 FL Neutrophils (%) (Auto) 58.9 % 78.2 % Lymphocytes (%) (Auto) 19.6 % 7.8 % Monocytes (%) (Auto) 8.3 % 6.0 % Eosinophils (%) (Auto) 12.5 % 7.3 % Basophils (%) (Auto) 0.7 % 0.7 % Neutrophils # (Auto) 4.8 TH/MM3 10.3 TH/MM3 Lymphocytes # (Auto) 1.6 TH/MM3 1.0 TH/MM3 Monocytes # (Auto) 0.7 TH/MM3 0.8 TH/MM3 Eosinophils # (Auto) 1.0 TH/MM3 1.0 TH/MM3 Basophils # (Auto) 0.1 TH/MM3 0.1 TH/MM3 CBC Comment DIFF FINAL DIFF FINAL Differential Comment Laboratory Tests Test 08/18/15 08/19/15 03:47 04:14 Sodium Level 147 MEQ/L 147 MEQ/L Potassium Level 3.8 MEQ/L 4.0 MEQ/L Chloride Level 104 MEQ/L 105 MEQ/L Carbon Dioxide Level 38.0 MEQ/L 35.2 MEQ/L Anion Gap 5 MEQ/L 7 MEQ/L Blood Urea Nitrogen 18 MG/DL 20 MG/DL Creatinine 0.49 MG/DL 0.43 MG/DL Estimat Glomerular Filtration 179 ML/MIN 208 ML/MIN Rate Random Glucose 114 MG/DL 126 MG/DL Calcium Level 9.5 MG/DL 9.6 MG/DL Phosphorus Level 3.7 MG/DL Magnesium Level 2.3 MG/DL Microbiology Date/Time Procedure Status Source Growth 08/18/15 10:35 Gram Stain - Final Resulted Sputum Endotracheal 08/18/15 10:35 Sputum Culture Resulted Sputum Endotracheal Pending 08/18/15 11:04 Aerobic Blood Culture Received Blood Peripheral Pending 08/18/15 11:04 Anaerobic Blood Culture Received Blood Peripheral Pending 08/18/15 11:13 Aerobic Blood Culture Received Blood Peripheral Pending 08/18/15 11:13 Anaerobic Blood Culture Received Blood Peripheral Pending 08/18/15 11:30 Urine Culture Received Urine Catheterized Urine Pending Imaging Chest X-Ray 08/18/15 0000 Signed Impressions: Service Date/Time: Tuesday, August 18, 2015 09:58 - CONCLUSION: No evidence of pneumonia. There is overlying artifact. Salazar Thurman MD Chest X-Ray 08/16/15 0000 Signed Impressions: Service Date/Time: Sunday, August 16, 2015 15:33 - CONCLUSION: No acute disease. Jeramie Manjarrez MD Tunnelled Chest Tube Removal 08/05/15 1100 Signed Impressions: Service Date/Time: Wednesday, August 05, 2015 11:00 - CONCLUSION: Uncomplicated chest tube removal. Blaine Jackson MD Chest Tube Change 07/31/15 0000 Signed Impressions: Service Date/Time: Friday, July 31, 2015 14:34 - CONCLUSION: Uncomplicated reposition of previously placed chest tube as above. Blaine Jackson MD Chest Tube Insertion 07/30/15 0000 Signed Impressions: Service Date/Time: July 14:50 - CONCLUSION: Uncomplicated chest tube placement as above. Blaine Jackson MD Catheter Change 07/27/15 0000 Signed Impressions: Service Date/Time: Monday, July 27, 2015 14:43 - CONCLUSION: Uncomplicated gastrostomy tube exchange as above. Blaine Jackson MD Chest CT 07/11/15 0000 Signed Impressions: Service Date/Time: Saturday, July 11, 2015 09:49 - CONCLUSION: Scattered patchy densities significantly improved from previous study. Tiny anterior right basilar pneumothorax. Right-sided chest tube in good position. Néstor Matamoros MD Head CT 06/18/151902 Signed Impressions: Service Date/Time: June 19:31 - CONCLUSION: Diffuse atrophy unchanged. No acute intracranial findings. Kush Briscoe MD Abdomen/Pelvis CT 06/18/151902 Signed Impressions: Service Date/Time: , June 18, 2015 19:36 - CONCLUSION: 1. Chronic nonspecific urinary bladder wall thickening. Bladder collapsed with Valdez catheter in place. 2. Chronic bilateral mid to lower lung zone groundglass opacity. 3. Nonobstructing left renal calculus. 4. Distended rectum. Kush Briscoe MD Physical Exam GENERAL: Slightly tachypneic, eyes open, not following commands, on the vent SKIN: No generalized rash. Cool and dry. HEENT: [place] conjunctivae, no icterus, moist mucosa NECK: Trach site looks ok. CARDIOVASCULAR: No murmur appreciated. RESPIRATORY: Coarse BS razia, decreased at bases GASTROINTESTINAL: Abdomen soft, non-tender, mildly distended. PEG tube site with no evidence of infection. MUSCULOSKELETAL: Increased tone in all extremities. Rigidity noted. Edema in both hands. No pedal edema NEUROLOGICAL: Opens eyes spontaneously. No verbal response does, not follow commands. Peripheral IV line sites with no evidence of infection. ; Valdez in place, urine looks clear Assessment & Plan Remarks New fevers, temps better Acute tracheobronchitis. ESBL Kleb pneumo and PSAE. Chest x-ray is negative, sputum purulent Acute on chronic respiratory failure was on trach and had to be placed on ventilator. - S/P upsizing of his trach Acute encephalopathy sepsis but has an underlying diagnosis of advanced dementia as well as advanced Parkinson's disease. Prior history of ESBL UTI - UC now with low colony count yeast and PSAE, valdez changed Urine Cx first one from old valdez with ESBL: likely colonization. Funguria likely colonization. Not being treated and clinically improved. Prior history of MRSA colonization. Status post trach Status post gastrostomy tube with no evidence of infection. Stage II sacral decubitus ulcer present on admission. Recommendations Continue meropenem to cover both ESBL and PSAE Follow C/S Give another dose of Vancomycin today - check level in AM Continue Diflucan Monitor progress Monitor temps Weaning per [facility] D/W Bhavna Piedra MD Aug 19, 2015 10:50
[2015-08-19] MEDS ORDERED: VANCOMYCIN INJ 1,000 MG in SODIUM CHLOR 0.9% 250 ML INJ 250 ML IV ONE (11:00)
--- NOTE | 2015-08-19 12:58 | HHI.PR ---
Subjective Remarks On A/C rate 10,and tachypneic .Tolerated CPAP for 4 hrs.. Sat 96 on 35 %. Febrile . Remains Lethargic. Objective Vital Signs Date Time Temp Pulse Resp B/P Pulse Ox O2 Delivery O2 Flow Rate FiO2 08/19/15 07:38 35 08/19/15 07:38 100 35 08/19/15 06:00 94 08/19/15 04:14 99 35 08/19/15 04:00 92 08/19/15 04:00 98.7 92 24 115/79 92 08/19/15 04:00 35 08/19/15 02:00 86 08/19/15 00:20 97 35 08/19/15 00:00 97.5 92 21 100/65 97 08/19/15 00:00 35 08/19/15 00:00 92 08/18/15 22:25 98 35 08/18/15 22:00 92 08/18/15 20:01 99 35 08/18/15 20:00 35 08/18/15 20:00 85 08/18/15 20:00 98.7 85 30 110/73 99 08/18/15 18:00 85 08/18/15 16:53 97 35 08/18/15 16:50 35 08/18/15 16:00 99.3 93 25 81/53 96 08/18/15 16:00 93 08/18/15 14:00 96 I/O 08/18/15 08/18/15 08/18/15 08/19/15 08/19/15 08/19/15 06:59 14:59 22:59 06:59 14:59 22:59 Intake Total 723 ml 1120 ml 1526 ml 579 ml Output Total 750 ml 250 ml 750 ml 650 ml Balance -27 ml 870 ml 776 ml -71 ml Intake Oral 0 ml IV Total 171 ml 330 ml 775 ml Tube Feeding 452 ml 540 ml 551 ml 579 ml Other 100 ml 250 ml 200 ml Output Urine Total 750 ml 250 ml 750 ml 650 ml # Bowel Movements 1 1 Result Diagram: 08/19/1541308/19/15413 Objective Remarks This is a thin white male who in on the vent with a trach tube in place. HEENT: Pupils are equal and reactive to light.Throat is clear. CHEST: Bilateral wheeze with basal crackles. Decreased breath sounds . CARDIOVASCULAR: S1 and S2 is normal. ABDOMEN: Soft, nondistended. He has a PEG tube in place. EXTREMITIES: No edema.muscle wasting. NEURO: Lethargic and Does not move his extremities . Assessment and Plan Assessment and Plan IMPRESSION 1. Respiratory failure, ventilator dependent 2. Sepsis 3. UTI 4. Tracheobronchitis 5. Parkinson's disease 6. Dementia. 7. Severe Deconditioning. 8. Left Pneumothorax. Resolved. Plan : 1. A/C rate 10 at HS PEEP + 5, FIO2 35 %. 2. Nebs qid , duoneb. 3. Antibiotics per ID. 4. Cont CPAP 15 up to 6 hrs during the day. 5. Levsin .125 mg tid via peg. 6. Ativan .5 mg q6h prn. 7. Cont Tube feeds at 60 CC 8. Lovenox 40 Mg S/Q daily. Darren Kiser MD Aug 19, 2015 12:58
[2015-08-19] MEDS: FREE WATER G-TUBE SCH ×2 (14:00→20:31)
[2015-08-19] MEDS: OLANZapine 5 MG TAB GT SCH (20:31)
[2015-08-19] MEDS: ENOXAPARIN SODIUM 40 MG/0.4 ML SYRINGE SQ SCH (20:31)
[2015-08-19 21:01] LABS: MEAN CORPUSCULAR HGB CONC 30.6 % (32.0-36.0)
[2015-08-20] VITALS (18 sets, daily range): BP systolic 89–110; BP diastolic 55–73; PULSE 72–97; RESP 20–30; TEMP 97.6–99.3; O2SAT 95–100
[2015-08-20] MEDS: CHLORHEXIDINE GLUCONATE 2 % 1 PACK (2 CLOTHS) TOP SCH (00:59)
[2015-08-20] MEDS: clonazePAM 1 MG TAB PO SCH ×3 (05:03→20:22)
[2015-08-20] MEDS: MEROPENEM INJ 1,000 MG in SODIUM CHLORIDE 0.9% INJ 100 ML IV SCH ×3 (05:04→20:21)
[2015-08-20] MEDS: CARBIDOPA/LEVODOPA 25 MG/100 MG TAB GT SCH ×3 (05:04→20:22)
[2015-08-20] MEDS: FREE WATER G-TUBE SCH ×3 (05:04→20:23)
[2015-08-20] MEDS: HYOSCYAMINE SOLN 0.125 MG/ML 15 ML BTL PO SCH ×3 (05:04→20:24)
[2015-08-20] MEDS: SENNOSIDES SYRUP 8.8 MG/5 ML CUP PO SCH (08:39)
[2015-08-20] MEDS: MIDODRINE 5 MG TAB G-TUBE SCH ×2 (08:40→20:23)
[2015-08-20] MEDS: GABAPENTIN 300 MG CAP G-TUBE SCH ×2 (08:40→20:21)
[2015-08-20] MEDS: LANSOPRAZOLE SOLUTAB 30 MG TAB NG SCH (08:40)
[2015-08-20] MEDS: LACTOBACILLUS ACIDOPHILUS TAB PO SCH ×3 (08:40→18:00)
[2015-08-20] MEDS: PARoxetine HCL 20 MG TAB G-TUBE SCH (08:40)
[2015-08-20] MEDS: CHLORHEXIDINE 0.12% (ORAL KIT) 15 ML CUP MT SCH ×2 (08:41→20:20)
[2015-08-20] MEDS: SODIUM CHLORIDE 0.9% FLUSH 5 ML FLUSH IVF SCH ×2 (08:41→20:20)
[2015-08-20] MEDS: QUEtiapine FUMARATE 25 MG TAB G-TUBE SCH ×2 (08:41→20:22)
[2015-08-20] MEDS: ARTIFICIAL TEARS OPTH SOLN 15 ML BTL EACH EYE SCH ×3 (08:42→18:00)
[2015-08-20 08:59] LABS: AUTOMATED NEUTROPHIL # 9.9 TH/MM3 (1.8-7.7); BASOPHIL # 0.1 TH/MM3 (0-0.2); BASOPHIL % 0.5 % (0.0-2.0); EOSINOPHIL % 7.6 % (0.0-4.0); HEMATOCRIT 28.5 % (39.0-51.0); HEMO FLAGS DIFF FINAL; LYMPH % 6.2 % (9.0-44.0); LYMPHOCYTE # 0.8 TH/MM3 (1.0-4.8); MEAN CELL VOLUME 90.3 FL (80.0-100.0); MEAN CORPUSCULAR HEMOGLOBIN 27.6 PG (27.0-34.0); MONO % 7.2 % (0.0-8.0); NEUT % 78.5 % (16.0-70.0); PLATELET COUNT 171 TH/MM3 (150-450); RED BLOOD COUNT 3.15 MIL/MM3 (4.50-5.90); RED CELL DISTRIBUTION WIDTH 13.7 % (11.6-17.2); WHITE BLOOD COUNT 12.6 TH/MM3 (4.0-11.0)
[2015-08-20 09:25] LABS: BICARBONATE 33.3 MEQ/L (21.0-32.0); POTASSIUM 4.2 MEQ/L (3.5-5.1)
[2015-08-20] MEDS: FLUCONAZOLE 200 MG PREMIX BAG 100 ML IV SCH (11:37)
--- NOTE | 2015-08-20 12:26 | HHI.IDPN ---
Subjective Subjective Remarks ID COVERAGE FOR DR Enoc PUENTES Chart reviewed Mr. Foreman is a 54-year-old male with past medical history significant for Parkinson's disease, advanced dementia, hyponatremia, history of ESBL UTI. Admitted with sepsis. Now with Pneumonia, UTI and staph bacteremia Notes reviewed D/W RN Temps ok Doing CPAP UC with yeast Sputum with GNR BP ok No diarrhea CXR no PNA UA with mild pyuria Antibiotics meropenem Diflucan Vanco x 1 dose 08/17 Lines Line sites with no e/o infection Past Medical History reviewed Allergies: Coded Allergies: *MDRO Multi-Drug Resistant Organism (Verified Adverse Reaction, Unknown, ) ESBL E. coli (urine) - 02/19/2015; ESBL K. pneumoniae (sputum) - 06/18/15, (urine) - 08/03/15, (sputum) - 08/03/15 MRSA PCR POSITIVE - 03/20/2015 Objective . Vital Signs Date Time Temp Pulse Resp B/P Pulse Ox O2 Delivery O2 Flow Rate FiO2 08/20/15 12:11 96 35 08/20/15 11:00 84 08/20/15 08:50 99 35 08/20/15 08:50 35 08/20/15 08:00 98.0 97 30 102/67 95 08/20/15 08:00 35 08/20/15 08:00 97 08/20/15 06:00 96 08/20/15 04:02 100 35 08/20/15 04:00 97.6 76 23 110/73 100 08/20/15 04:00 35 08/20/15 04:00 76 08/20/15 02:00 76 08/20/15 01:10 96 35 08/20/15 00:00 35 08/20/15 00:00 98.5 72 20 89/55 95 08/20/15 00:00 76 08/19/15 22:05 94 35 08/19/15 22:00 79 08/19/15 20:37 97 35 08/19/15 20:00 98.9 72 17 86/55 97 08/19/15 20:00 72 08/19/15 20:00 35 08/19/15 18:00 80 08/19/15 16:27 97 35 08/19/15 16:00 35 08/19/15 16:00 94 08/19/15 16:00 97.7 94 19 95/69 100 08/19/15 14:00 84 08/19/15 12:55 98 35 08/19/15 08/19/15 08/20/15 15:00 23:00 07:00 Intake Total 1596 ml 779 ml Output Total 700 ml 400 ml Balance 896 ml 379 ml Intake Oral 0 ml IV Total 722 ml 76 ml Tube Feeding 874 ml 503 ml Other 200 ml Output Urine Total 700 ml 400 ml # Bowel Movements 4 . Laboratory Tests Test 08/19/15 08/20/15 04:14 06:43 White Blood Count 13.1 TH/MM3 12.6 TH/MM3 Red Blood Count 3.47 MIL/MM3 3.15 MIL/MM3 Hemoglobin 9.5 GM/DL 8.7 GM/DL Hematocrit 31.2 % 28.5 % Mean Corpuscular Volume 89.8 FL 90.3 FL Mean Corpuscular Hemoglobin 27.5 PG 27.6 PG Mean Corpuscular Hemoglobin 30.6 % 30.6 % Concent Red Cell Distribution Width 13.9 % 13.7 % Platelet Count 170 TH/MM3 171 TH/MM3 Mean Platelet Volume 11.1 FL 11.1 FL Neutrophils (%) (Auto) 78.2 % 78.5 % Lymphocytes (%) (Auto) 7.8 % 6.2 % Monocytes (%) (Auto) 6.0 % 7.2 % Eosinophils (%) (Auto) 7.3 % 7.6 % Basophils (%) (Auto) 0.7 % 0.5 % Neutrophils # (Auto) 10.3 TH/MM3 9.9 TH/MM3 Lymphocytes # (Auto) 1.0 TH/MM3 0.8 TH/MM3 Monocytes # (Auto) 0.8 TH/MM3 0.9 TH/MM3 Eosinophils # (Auto) 1.0 TH/MM3 1.0 TH/MM3 Basophils # (Auto) 0.1 TH/MM3 0.1 TH/MM3 CBC Comment DIFF FINAL DIFF FINAL Differential Comment Laboratory Tests Test 08/19/15 08/20/15 04:14 06:43 Sodium Level 147 MEQ/L 146 MEQ/L Potassium Level 4.0 MEQ/L 4.2 MEQ/L Chloride Level 105 MEQ/L 106 MEQ/L Carbon Dioxide Level 35.2 MEQ/L 33.3 MEQ/L Anion Gap 7 MEQ/L 7 MEQ/L Blood Urea Nitrogen 20 MG/DL 17 MG/DL Creatinine 0.43 MG/DL 0.38 MG/DL Estimat Glomerular Filtration 208 ML/MIN 240 ML/MIN Rate Random Glucose 126 MG/DL 130 MG/DL Calcium Level 9.6 MG/DL 9.3 MG/DL Microbiology Date/Time Procedure Status Source Growth 08/18/15 10:35 Gram Stain - Final Resulted Sputum Endotracheal 08/18/15 10:35 Sputum Culture - Preliminary Resulted Pseudomonas Aeruginosa Stenotrophomonas Maltophilia 08/18/15 11:04 Aerobic Blood Culture - Preliminary Resulted Blood Peripheral NO GROWTH IN 2 DAYS 08/18/15 11:04 Anaerobic Blood Culture - Preliminary Resulted Blood Peripheral NO GROWTH IN 2 DAYS 08/18/15 11:13 Aerobic Blood Culture - Preliminary Resulted Blood Peripheral NO GROWTH IN 2 DAYS 08/18/15 11:13 Anaerobic Blood Culture - Preliminary Resulted Blood Peripheral NO GROWTH IN 2 DAYS 08/18/15 11:30 Urine Culture - Preliminary Resulted Urine Catheterized Urine Yeast Species Imaging Chest X-Ray 08/18/15 0000 Signed Impressions: Service Date/Time: Tuesday, August 18, 2015 09:58 - CONCLUSION: No evidence of pneumonia. There is overlying artifact. Salazar Thurman MD Chest X-Ray 08/16/15 0000 Signed Impressions: Service Date/Time: Sunday, August 16, 2015 15:33 - CONCLUSION: No acute disease. Jeramie Manjarrez MD Tunnelled Chest Tube Removal 08/05/15 1100 Signed Impressions: Service Date/Time: Wednesday, August 05, 2015 11:00 - CONCLUSION: Uncomplicated chest tube removal. Blaine Jackson MD Chest Tube Change 07/31/15 0000 Signed Impressions: Service Date/Time: Friday, July 31, 2015 14:34 - CONCLUSION: Uncomplicated reposition of previously placed chest tube as above. Blaine Jackson MD Chest Tube Insertion 07/30/15 0000 Signed Impressions: Service Date/Time: July 14:50 - CONCLUSION: Uncomplicated chest tube placement as above. Blaine Jackson MD Catheter Change 07/27/15 0000 Signed Impressions: Service Date/Time: Monday, July 27, 2015 14:43 - CONCLUSION: Uncomplicated gastrostomy tube exchange as above. Blaine Jackson MD Chest CT 07/11/15 0000 Signed Impressions: Service Date/Time: Saturday, July 11, 2015 09:49 - CONCLUSION: Scattered patchy densities significantly improved from previous study. Tiny anterior right basilar pneumothorax. Right-sided chest tube in good position. Néstor Matamoros MD Head CT 06/18/151902 Signed Impressions: Service Date/Time: , June 18, 2015 19:31 - CONCLUSION: Diffuse atrophy unchanged. No acute intracranial findings. Kush Briscoe MD Abdomen/Pelvis CT 06/18/151902 Signed Impressions: Service Date/Time: , June 18, 2015 19:36 - CONCLUSION: 1. Chronic nonspecific urinary bladder wall thickening. Bladder collapsed with Valdez catheter in place. 2. Chronic bilateral mid to lower lung zone groundglass opacity. 3. Nonobstructing left renal calculus. 4. Distended rectum. Kush Briscoe MD Physical Exam GENERAL: eyes open, not following commands, on the vent SKIN: No generalized rash. Cool and dry. HEENT: [place] conjunctivae, no icterus, moist mucosa NECK: Trach site looks ok. CARDIOVASCULAR: No murmur appreciated. RESPIRATORY: Coarse BS razia, decreased at bases GASTROINTESTINAL: Abdomen soft, non-tender, mildly distended. PEG tube site with no evidence of infection. MUSCULOSKELETAL: Edema in both hands. No pedal edema NEUROLOGICAL: Opens eyes spontaneously. No verbal response does, not follow commands. Peripheral IV line sites with no evidence of infection. ; Valdez in place, urine looks clear Assessment & Plan Remarks New fevers, temps better Acute tracheobronchitis. ESBL Kleb pneumo and PSAE. Chest x-ray is negative, sputum purulent - new sputum with GNR, ID pending Acute on chronic respiratory failure was on trach and had to be placed on ventilator. - S/P upsizing of his trach Acute encephalopathy sepsis but has an underlying diagnosis of advanced dementia as well as advanced Parkinson's disease. Prior history of ESBL UTI - UC now with low colony count yeast and PSAE, valdez changed Urine Cx first one from old valdez with ESBL: likely colonization. Funguria likely colonization. Not being treated and clinically improved. Prior history of MRSA colonization. Status post trach Status post gastrostomy tube with no evidence of infection. Stage II sacral decubitus ulcer present on admission. Recommendations Continue meropenem to cover both ESBL and PSAE Follow C/S Continue Diflucan Monitor progress Monitor temps Weaning per CCM D/W Bhavna Piedra MD Aug 20, 2015 12:26
--- NOTE | 2015-08-20 17:47 | HHI.PR ---
Subjective Remarks On CPAP /PSV 5/20, Fio2 3%,and tachypneic .Tolerated CPAP for 6 hrs. Remains Lethargic. Objective Vital Signs Date Time Temp Pulse Resp B/P Pulse Ox O2 Delivery O2 Flow Rate FiO2 08/20/15 16:41 97 35 08/20/15 14:00 80 08/20/15 12:11 96 35 08/20/15 12:00 84 08/20/15 12:00 99.3 84 23 93/59 96 08/20/15 11:00 84 08/20/15 08:50 99 35 08/20/15 08:50 35 08/20/15 08:00 98.0 97 30 102/67 95 08/20/15 08:00 35 08/20/15 08:00 97 08/20/15 06:00 96 08/20/15 04:02 100 35 08/20/15 04:00 97.6 76 23 110/73 100 08/20/15 04:00 35 08/20/15 04:00 76 08/20/15 02:00 76 08/20/15 01:10 96 35 08/20/15 00:00 35 08/20/15 00:00 98.5 72 20 89/55 95 08/20/15 00:00 76 08/19/15 22:05 94 35 08/19/15 22:00 79 08/19/15 20:37 97 35 08/19/15 20:00 98.9 72 17 86/55 97 08/19/15 20:00 72 08/19/15 20:00 35 08/19/15 18:00 80 I/O 08/19/15 08/19/15 08/19/15 08/20/15 08/20/15 08/20/15 07:00 15:00 23:00 07:00 15:00 23:00 Intake Total 579 ml 1596 ml 779 ml 938 ml Output Total 650 ml 700 ml 400 ml 500 ml Balance -71 ml 896 ml 379 ml 438 ml Intake Oral 0 ml IV Total 722 ml 76 ml 200 ml Tube Feeding 579 ml 874 ml 503 ml 538 ml Other 200 ml 200 ml Output Urine Total 650 ml 700 ml 400 ml 500 ml # Bowel Movements 4 1 Result Diagram: 08/20/15 0643 08/20/1543 Objective Remarks This is a thin white male who in on the vent with a trach tube in place. HEENT: Pupils are equal and reactive to light.Throat dry. CHEST: Bilateral wheeze with basal crackles. Decreased breath sounds . CARDIOVASCULAR: S1 and S2 is normal. ABDOMEN: Soft, nondistended. He has a PEG tube in place. EXTREMITIES: No edema.muscle wasting. NEURO: Lethargic and Does not move his extremities . Assessment and Plan Assessment and Plan IMPRESSION 1. Respiratory failure, ventilator dependent 2. Sepsis, resolving. 3. UTI 4. Tracheobronchitis 5. Parkinson's disease 6. Dementia. 7. Severe Deconditioning. 8. Left Pneumothorax. Resolved. Plan : 1. A/C rate 10 at HS PEEP + 5, FIO2 35 %. 2. Nebs qid , duoneb. 3. Antibiotics per ID. 4. Cont CPAP 5/20 up to 6 hrs during the day. 5. Levsin .125 mg tid via peg. 6. Ativan .5 mg q6h prn. 7. Cont Tube feeds at 60 CC 8. Lovenox 40 Mg S/Q daily. aDrren Kiser MD Aug 20, 2015 17:47
--- NOTE | 2015-08-20 18:33 | HHI.CCPN ---
Subjective Remarks/Hospital Course 06/17: Pt is a 54 yr man with multiple medial problems including Parkinson's disease, advanced dementia, hyponatremia, anxiety, pneumonia, GERD, cognitive disorder, and multidrug resistant UTI- ESBL02/19/15 , who resides in a alf. Pt by report was found by staff in alf to be less alert and having respiratory difficultly and fevers. Pt was brought to ED adn placed on ventilator. His workup was inclusive of labs, chest xray and ct head and abd/pelvis. WBC 16.4, +UTI, lactic acid 4, troponin ,0.02, BUN/ cre 18/ 0.76. CT head 06/18/15: diffuse atrophy unchanged. No acute intracranial findings ct abd/ pelvis with IV contrast: 06/18/15 Conclusion: 1. Chronic nonspecific urinary bladder wall thickening. Bladder collapsed with Putnam catheter in place. 2.Chronic bilateral mid to lower zone groundglass opacity. 3. Nonobstructing left renal calculus. 4. Distended rectum Pt admitted and fluid and abx ordered. 06/18: Drowsy, easily arousable. On mechanical ventilation via tracheostomy. Tachypneic. Resting tremor noted. 06/19: Drowsy, arousable. On mechanical ventilation via tracheostomy. 06/20: Drowsy, arousable. Remains on mechanical ventilation via tracheostomy. We'll repeat blood cultures, UA and urine cultures. Fluconazole IV added in view of yeast in urine. 07/06: Reconsulted as patient return to the ventilator on a right ventricular due to tachypnea. Low-grade temperatures. Tolerating tube feeding. Extremity encephalopathic demented patient with difficult neurological examination. 07/07: Status post chest tube placement by IR for right pneumothorax 07/06. Afebrile. Tolerating tube feeds. Positive BM. Currently tachypneic on the ventilator. Does not appear to be any acute distress. 07/08: Afebrile. Tolerating tube feeding. He is comfortable currently on CPAP trials 11/10. Positive BM. 07/09: Afebrile. Tolerating tube feeding. Appears comfortable on T bar. Positive BM. 07/10: Afebrile. Eyes are open. Remained on T piece overnight. Tolerating tube feeding. 07/11: MAXIMUM TEMPERATURE 100. Currently 98.6. Eyes are open. On ACV overnight secondary to "tachypnea and sweating". Switching back to PSV trials today. Goal is T piece during daytime, CPAP at night. 07/12: No acute events overnight. On PSV 15/5 -attempt TP up to 6 hours today. No pneumothorax on chest x-ray 07/13: Placed back on full ventilator support for tachypnea. Otherwise clinically unchanged. No fever today 07/14: Patient was on T piece yesterday evening, placed back on PSV overnight, patient mechanical ventilation this morning. Patient appears to be struggling with mechanical ventilation. Patient placed back on PSV with improvement 07/15: Patient placed back on mechanical ventilation last evening due to respiratory rate. It was indicated patient was tachypnea can the 40s. Patient on mechanical ventilation this time with respiration rate mid 20s. Chest tube still in place without any output, chest x-ray still indicating resolution of pneumothorax. 07/16: Patient seen and examined today. Patient placed back on mechanical ventilation overnight due to respiratory rate. Even on mechanical ventilation patient has respiration rate in the 30s. Patient afebrile, blood pressure stable. Continue vent weaning 07/17: Patient seen and examined. Currently afebrile. Currently on CPAP 15/5 @ 40%. Patient is awake with open mouth resting in bed in no apparent acute distress. Tolerating tube feeding. 2 bowel movements. 07/18: No neurological changes. Afebrile. 2 bowel moments. Tolerating tube feeding. We'll attempt TP trials today. On CPAP since 07/15 07/19 No events overnight. On CPAP with PS: 10, PEEP: 5 and FIO2 35%. Afebrile. On no sedation. 07/20 No events overnight. Tolerating CPAP. Afebrile. 07/21: Remains on CPAP. Attempt T piece trial today. Afebrile. One bowel movement. Tolerating tube feeding. 07/22: Afebrile. Positive BM. Tolerating tube feeding. Noted switched tracheostomy to #6 Shiley cuffed fenestrated. Neurologically unchanged 07/23: Afebrile. Positive BM. Tolerating tube feeding. Questionable leak in exchange trach. Place back on a rate/ACV overnight. Insufflated seems to be doing better at the present time. Will check chest x-ray. Possible he might need #6 XLT versus replacement of chronic #8 Shiley. 07/24: Tolerating TP today, RR in low 30s patient appears comfortable. No acute events overnight 07/25: Remains off the ventilator more than 36 hours now. Intermittently tachypneic probably breathing. Chest x-ray was clear yesterday. No acute events reported overnight. PEG not functioning per RN 08/02: Patient was transferred back to critical care service due to continuing ventilator management, tachypnea. Patient clinical status with no significant change. Patient with low-grade fever 100.2, 08/03: Patient seen and examined today. No significant change in clinical status. Patient still with chronic tachypnea. Patient afebrile now. 08/04: Patient seen and examined today. No change in clinical status. Patient still continues to have chronic tachypnea. Patient afebrile. Continue vent weaning 08/05: Patient seen and examined today. Patient had chest tube removed yesterday , chest x-ray shows redevelopment of pneumothorax. Chest tube replaced. Otherwise, patient still on ventilator with tachypnea. Afebrile 08/06: Patient seen and examined today. Patient went to have chest tube placed, repeat chest x-ray did not indicate any pneumothorax. No overnight events. We' ll need to pursue LTAC placement 08/07 No events overnight. On ventilator via trach. Afebrile. 08/08 Patient tolerated CPAP x4 hrs yesterday. Afebrile. On no sedation. 08/09 No events overnight. Tolerated CPAP x 12 hrs yesterday. Afebrile. 08/10 Patient tolerated TP's x 12 hrs yesterday back on ACV overnight. 08/11 No events overnight, currently on TP's with 40% FIO2. Afebrile. 08/12 On CPAP 10/5. Tolerated Tpiece 3 hours earlier today. Afebrile. 08/13 On CPAP 10/5. Not tolerating CPAP as well over last few days and RT notes challenge with suctioning respiratory secretions adequately. Discussing with healthcare proxy regarding exchange trach to 8.0. 08/14 Nursing and RT staff having continued difficulty suctioning respiratory secretions via 6.0 tracheostomy. KAREN Garcia did not consent to stoma dilation and trach upsize yesterday but said she would call back and let me know but no return call. Contacted again today and left a message. Afebrile. On CPAP 10/5. Brow furrowing on exam, appears to be in pain but pain not localizable. Tolerating tube feeds, had BM yesterday 08/15 Not tolerating CPAP today. Contacted healthcare surrogate again and discussed need for trach change. She consented and trach was dilated and up- sized to 8.0 Distal XLT to facilitate pulmonary toilet and to address volume leak. 08/16 No events overnight. Remains on ventilator via trach. Afebrile. Tolerating TF. 08/17 No events overnight. Afebrile. 08/18 Patient tolerated CPAP x 4 hrs yesterday. Afebrile.On ventilator via trach. Subjective: 08/19 On CPAP 25/06. Temp max 99.3 Objective - Vital Signs Date Time Temp Pulse Resp B/P Pulse Ox O2 Delivery O2 Flow Rate FiO2 08/20/15 16:41 97 35 08/20/15 14:00 80 08/20/15 12:00 99.3 23 93/59 08/17/15 20:30 Mechanical Ventilator Intake and Output 08/19/15 08/19/15 08/19/15 07:59 15:59 23:59 Intake Total 579 ml 900 ml 696 ml Output Total 650 ml 450 ml 250 ml Balance -71 ml 450 ml 446 ml Result Diagram: 08/20/15 0643 08/20/15 0643 Other Results Laboratory Tests Test 08/18/15 08/19/15 11:30 04:14 Urine Color YELLOW Urine Turbidity CLOUDY Urine pH 7.5 Urine Specific [place] 1.016 Urine Protein 30 mg/dL Urine Glucose (UA) NEG mg/dL Urine Ketones NEG mg/dL Urine Occult Blood MOD Urine Nitrite NEG Urine Bilirubin NEG Urine Urobilinogen 2.0 MG/DL Urine Leukocyte Esterase LARGE Urine RBC 70 /hpf Urine WBC 42 /hpf Urine Squamous Epithelial <1 /hpf Cells Urine Amorphous Sediment MOD Urine Bacteria FEW /hpf Urine Mucus FEW /lpf Urine Yeast with Hyphae FEW Microscopic Urinalysis Comment CATH-CULTURE IND White Blood Count 13.1 TH/MM3 Red Blood Count 3.47 MIL/MM3 Hemoglobin 9.5 GM/DL Hematocrit 31.2 % Mean Corpuscular Volume 89.8 FL Mean Corpuscular Hemoglobin 27.5 PG Mean Corpuscular Hemoglobin 30.6 % Concent Red Cell Distribution Width 13.9 % Platelet Count 170 TH/MM3 Mean Platelet Volume 11.1 FL Neutrophils (%) (Auto) 78.2 % Lymphocytes (%) (Auto) 7.8 % Monocytes (%) (Auto) 6.0 % Eosinophils (%) (Auto) 7.3 % Basophils (%) (Auto) 0.7 % Neutrophils # (Auto) 10.3 TH/MM3 Lymphocytes # (Auto) 1.0 TH/MM3 Monocytes # (Auto) 0.8 TH/MM3 Eosinophils # (Auto) 1.0 TH/MM3 Basophils # (Auto) 0.1 TH/MM3 CBC Comment DIFF FINAL Differential Comment Sodium Level 147 MEQ/L Potassium Level 4.0 MEQ/L Chloride Level 105 MEQ/L Carbon Dioxide Level 35.2 MEQ/L Anion Gap 7 MEQ/L Blood Urea Nitrogen 20 MG/DL Creatinine 0.43 MG/DL Estimat Glomerular Filtration 208 ML/MIN Rate Random Glucose 126 MG/DL Calcium Level 9.6 MG/DL Imaging Last Impressions Chest X-Ray 08/18/15 0000 Signed Impressions: Service Date/Time: Tuesday, August 18, 2015 09:58 - CONCLUSION: No evidence of pneumonia. There is overlying artifact. Salazar Thurman MD Tunnelled Chest Tube Removal 08/05/15 1100 Signed Impressions: Service Date/Time: Wednesday, August 05, 2015 11:00 - CONCLUSION: Uncomplicated chest tube removal. Blaine Jackson MD Chest Tube Change 07/31/15 0000 Signed Impressions: Service Date/Time: Friday, July 31, 2015 14:34 - CONCLUSION: Uncomplicated reposition of previously placed chest tube as above. Blaine Jackson MD Chest Tube Insertion 07/30/15 0000 Signed Impressions: Service Date/Time: July 14:50 - CONCLUSION: Uncomplicated chest tube placement as above. Blaine Jackson MD Catheter Change 07/27/15 0000 Signed Impressions: Service Date/Time: Monday, July 27, 2015 14:43 - CONCLUSION: Uncomplicated gastrostomy tube exchange as above. Blaine Jackson MD Chest CT 07/11/15 0000 Signed Impressions: Service Date/Time: Saturday, July 11, 2015 09:49 - CONCLUSION: Scattered patchy densities significantly improved from previous study. Tiny anterior right basilar pneumothorax. Right-sided chest tube in good position. Néstor Matamoros MD Head CT 06/18/151902 Signed Impressions: Service Date/Time: June 19:31 - CONCLUSION: Diffuse atrophy unchanged. No acute intracranial findings. Kush Briscoe MD Abdomen/Pelvis CT 06/18/151902 Signed Impressions: Service Date/Time: June 19:36 - CONCLUSION: 1. Chronic nonspecific urinary bladder wall thickening. Bladder collapsed with Putnam catheter in place. 2. Chronic bilateral mid to lower lung zone groundglass opacity. 3. Nonobstructing left renal calculus. 4. Distended rectum. Kush Briscoe MD Objective Remarks GENERAL: 54-year-old male, cachectic, on CPAP via trach. HEENT: NC/AT. PERRL. MMM dry and pink. NECK: No JVD. 8.0 Distal XLT trach in place with no air leak. CARDIAC: RRR. S1/S2. No S4. No murmurs, clicks gallops or rubs. LUNGS: Tachypneic with bilateral rhonchi, no wheeze. ABDOMEN: S/NT/ND. Bowel sounds present. EXTREMITIES: pulses are equal bilaterally. 1+ pedal edema NEUROLOGY: Patient with significant contractures of the right lower extremity, upper extremities. Eyes open spontaneously. Muscle wasting face, bilateral upper and lower extremities Procedures 07/26- PEG replacement 07/29- right pigtail catheter placement for new pneumothorax 07/29 Date of Insertion: Jul 30, 2015 A/P Assessment and Plan Neuro/Psych: Toxic metabolic Encephalopathy - chronic Parkinson's disease Cognitive disorder/Underlying dementia Depression CT head 06/18/15: - diffuse atrophy unchanged. No acute intracranial findings Continue Sinemet 25/100 q8 via PEG, Seroquel 50 mg twice a day, olanzapine 5 mg a night, Klonopin 2 mg every 8 hours, Paxil 20 daily and Neurontin 300 mg twice a day. 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 Continue Lortab when necessary pain and fentanyl patch 50 g every 3 days for pain management. Fentanyl bolus prn breakthrough pain or if needed for turning/ nursing care/etc. Resp: Acute on chronic respiratory failure Chronic trach, Pneumonia Right pneumothorax status post pigtail catheter (resolved) Continue with vent support keep sat >92% Daily CPAP trials with transition to Tpiece as tolerated. Pulmonary Dr. Gaurav corey following. Pulm toilet, trach care. Exchanged to 8 Distal XLT on 08/15 to facilitate suctioning, trach care. Duo nebs every 6 hours when necessary Status post chest tube replacement by interventional radiology on 07/30, chest tube removed 08/04, repeat films do not indicate any pneumothorax Cardiac History of orthostasis History of CAD, HLP, Hypertension Continue Midodrine 5 mg twice a day Monitor HR and BP keep MAP>65mmHg GI: Malnutrition/protein calorie - moderate Status post PEG Hemorrhoids Gastroesophageal reflux disease - Tolerating Jevity 1.5 at 60 cc an hour per nutrition recommendations - Currently Prevacid 30 mg per PEG tube daily for GERD - Current Colace/senna for bowel regimen. FEN/renal: Nonobstructing left renal calculus Hypernatremia - Monitor renal function, I/O's. electrolytes replacement per protocol. -Change Free H20 200ml Q8, monitor Na level. ID: Candiduria ESBL positive Klebsiella/Pseudomonas pneumonia MRSA colonization sepsis UTI Klebsiella ESBL positive (has been treated) Continue with abx per ID ( Merrem 08/11 - ) Started on Diflucan and given Vanco x1 dose yesterday, continue diflucan per ID. On Lactinex Urine culture: 08/02 Klebsiella pneumonia ESBL positive Urine culture: 08/02 Heena Tropicalis, C. Glabrata Sputum culture: 08/02 Pseudomonas, Klebsiella pneumonia ESBL positive Blood culture: 08/02 yeast species, Heena glabrata, Heena tropicalis - History of Multidrug resistant UTI- ESBL 02/19/15 , MRSA + 03/20/15 - Heena glabrata in urine 03/19/15 - Rechecked blood, sputum and urine cultures 07/06 no growth - 06/17 - blood cultures 2 - CONS/staph epi - 06/17 - sputum - ESBL positive Klebsiella/Pseudomonas Treated 15 days with tobramycin aerosols twice a day. - 06/17 - urine - C. glabrata/tropicalis - treated with Diflucan Endo: Euglycemic. Not requiring sliding scale Heme Anemia - Monitor CBC MSK Bilateral lower extremity Contractures Stage II sacral decubitus present on admission - Wound care evaluate and treat - Continue physical therapy Prophylaxis - GI - Prevacid - DVT - SCDs/ Lovenox. CCT 30 mins Leena Mistry MD Aug 20, 2015 18:33
[2015-08-20] MEDS: ENOXAPARIN SODIUM 40 MG/0.4 ML SYRINGE SQ SCH (20:21)
[2015-08-20] MEDS: OLANZapine 5 MG TAB GT SCH (20:22)
[2015-08-21] VITALS (18 sets, daily range): BP systolic 92–100; BP diastolic 55–73; PULSE 77–103; RESP 23–34; TEMP 98.7–99.8; O2SAT 91–100
[2015-08-21] MEDS: CHLORHEXIDINE GLUCONATE 2 % 1 PACK (2 CLOTHS) TOP SCH (03:50)
[2015-08-21] MEDS: HYOSCYAMINE SOLN 0.125 MG/ML 15 ML BTL PO SCH ×3 (05:25→20:57)
[2015-08-21] MEDS: CARBIDOPA/LEVODOPA 25 MG/100 MG TAB GT SCH ×3 (05:25→20:56)
[2015-08-21] MEDS: FREE WATER G-TUBE SCH ×3 (05:26→20:57)
[2015-08-21] MEDS: clonazePAM 1 MG TAB PO SCH ×3 (05:26→20:56)
[2015-08-21] MEDS: CHLORHEXIDINE 0.12% (ORAL KIT) 15 ML CUP MT SCH ×2 (08:29→20:56)
[2015-08-21] MEDS: ARTIFICIAL TEARS OPTH SOLN 15 ML BTL EACH EYE SCH ×3 (08:29→18:00)
[2015-08-21] MEDS: COLLAGENASE OINT 30 GM TUBE TOP SCH (08:30)
[2015-08-21] MEDS: MIDODRINE 5 MG TAB G-TUBE SCH ×2 (08:30→20:56)
[2015-08-21] MEDS: GABAPENTIN 300 MG CAP G-TUBE SCH ×2 (08:30→20:56)
[2015-08-21] MEDS: SENNOSIDES SYRUP 8.8 MG/5 ML CUP PO SCH (08:30)
[2015-08-21] MEDS: LACTOBACILLUS ACIDOPHILUS TAB PO SCH ×3 (08:30→18:00)
[2015-08-21] MEDS: QUEtiapine FUMARATE 25 MG TAB G-TUBE SCH ×2 (08:30→20:56)
[2015-08-21] MEDS: LANSOPRAZOLE SOLUTAB 30 MG TAB NG SCH (08:30)
[2015-08-21] MEDS: PARoxetine HCL 20 MG TAB G-TUBE SCH (08:30)
[2015-08-21] MEDS: SODIUM CHLORIDE 0.9% FLUSH 5 ML FLUSH IVF SCH ×2 (08:31→20:57)
--- NOTE | 2015-08-21 10:36 | HHI.IDPN ---
Subjective Subjective Remarks Chart reviewed Mr. Foreman is a 54-year-old male with past medical history significant for Parkinson's disease, advanced dementia, hyponatremia, history of ESBL UTI. Admitted with sepsis. Now being treated for tracheobronchitis and C.tropicalis in urine Cath associated. Notes reviewed D/W RN Temps ok On CPAP 35% FIO2 and PEEP 8. Secretions thick, moderate to large, yellow. BP ok No diarrhea Antibiotics meropenem Diflucan IV Vanco x 1 dose 08/17 Lines Line sites with no e/o infection Past Medical History reviewed Allergies: Coded Allergies: *MDRO Multi-Drug Resistant Organism (Verified Adverse Reaction, Unknown, ) ESBL E. coli (urine) - 02/19/2015; ESBL K. pneumoniae (sputum) - 06/18/15, (urine) - 08/03/15, (sputum) - 08/03/15 MRSA PCR POSITIVE - 03/20/2015 Objective . Vital Signs Date Time Temp Pulse Resp B/P Pulse Ox O2 Delivery O2 Flow Rate FiO2 08/21/15 07:59 100 35 08/21/15 06:00 84 08/21/15 04:00 35 08/21/15 04:00 77 08/21/15 04:00 99.0 77 23 94/58 98 08/21/15 03:59 99 35 08/21/15 02:00 79 08/21/15 01:25 98 35 08/21/15 00:00 99.2 86 29 99/56 97 08/21/15 00:00 86 08/21/15 00:00 35 08/20/15 22:00 86 08/20/15 21:33 97 35 08/20/15 20:00 98.8 81 26 100/61 97 08/20/15 20:00 81 08/20/15 20:00 35 08/20/15 18:00 86 08/20/15 16:41 97 35 08/20/15 16:00 99.3 86 26 96 08/20/15 16:00 86 08/20/15 14:00 80 08/20/15 12:11 96 35 08/20/15 12:00 84 08/20/15 12:00 99.3 84 23 93/59 96 08/20/15 11:00 84 08/20/15 08/20/15 08/21/15 15:00 23:00 07:00 Intake Total 938 ml 930 ml 645 ml Output Total 500 ml 400 ml 300 ml Balance 438 ml 530 ml 345 ml IV Total 200 ml 234 ml 32 ml Tube Feeding 538 ml 496 ml 413 ml Other 200 ml 200 ml 200 ml Output Urine Total 500 ml 400 ml 300 ml # Bowel Movements 1 1 1 . Laboratory Tests Test 08/20/15 06:43 White Blood Count 12.6 TH/MM3 Red Blood Count 3.15 MIL/MM3 Hemoglobin 8.7 GM/DL Hematocrit 28.5 % Mean Corpuscular Volume 90.3 FL Mean Corpuscular Hemoglobin 27.6 PG Mean Corpuscular Hemoglobin 30.6 % Concent Red Cell Distribution Width 13.7 % Platelet Count 171 TH/MM3 Mean Platelet Volume 11.1 FL Neutrophils (%) (Auto) 78.5 % Lymphocytes (%) (Auto) 6.2 % Monocytes (%) (Auto) 7.2 % Eosinophils (%) (Auto) 7.6 % Basophils (%) (Auto) 0.5 % Neutrophils # (Auto) 9.9 TH/MM3 Lymphocytes # (Auto) 0.8 TH/MM3 Monocytes # (Auto) 0.9 TH/MM3 Eosinophils # (Auto) 1.0 TH/MM3 Basophils # (Auto) 0.1 TH/MM3 CBC Comment DIFF FINAL Differential Comment Laboratory Tests Test 08/20/15 06:43 Sodium Level 146 MEQ/L Potassium Level 4.2 MEQ/L Chloride Level 106 MEQ/L Carbon Dioxide Level 33.3 MEQ/L Anion Gap 7 MEQ/L Blood Urea Nitrogen 17 MG/DL Creatinine 0.38 MG/DL Estimat Glomerular Filtration 240 ML/MIN Rate Random Glucose 130 MG/DL Calcium Level 9.3 MG/DL Microbiology Date/Time Procedure Status Source Growth 08/18/15 10:35 Gram Stain - Final Complete Sputum Endotracheal 08/18/15 10:35 Sputum Culture - Final Complete Pseudomonas Aeruginosa Stenotrophomonas Maltophilia 08/18/15 11:04 Aerobic Blood Culture - Preliminary Resulted Blood Peripheral NO GROWTH IN 2 DAYS 08/18/15 11:04 Anaerobic Blood Culture - Preliminary Resulted Blood Peripheral NO GROWTH IN 2 DAYS 08/18/15 11:13 Aerobic Blood Culture - Preliminary Resulted Blood Peripheral NO GROWTH IN 2 DAYS 08/18/15 11:13 Anaerobic Blood Culture - Preliminary Resulted Blood Peripheral NO GROWTH IN 2 DAYS 08/18/15 11:30 Urine Culture - Preliminary Resulted Urine Catheterized Urine Heena Tropicalis Imaging Chest X-Ray 08/18/15 0000 Signed Impressions: Service Date/Time: Tuesday, August 18, 2015 09:58 - CONCLUSION: No evidence of pneumonia. There is overlying artifact. Salazar Thurman MD Chest X-Ray 08/16/15 0000 Signed Impressions: Service Date/Time: Sunday, August 16, 2015 15:33 - CONCLUSION: No acute disease. Jeramie Manjarrez MD Tunnelled Chest Tube Removal 08/05/15 1100 Signed Impressions: Service Date/Time: Wednesday, August 05, 2015 11:00 - CONCLUSION: Uncomplicated chest tube removal. Blaine Jackson MD Chest Tube Change 07/31/15 0000 Signed Impressions: Service Date/Time: Friday, July 31, 2015 14:34 - CONCLUSION: Uncomplicated reposition of previously placed chest tube as above. Blaine Jackson MD Chest Tube Insertion 07/30/15 0000 Signed Impressions: Service Date/Time: July 14:50 - CONCLUSION: Uncomplicated chest tube placement as above. Blaine Jackson MD Catheter Change 07/27/15 0000 Signed Impressions: Service Date/Time: Monday, July 27, 2015 14:43 - CONCLUSION: Uncomplicated gastrostomy tube exchange as above. Blaine Jackson MD Chest CT 07/11/15 0000 Signed Impressions: Service Date/Time: Saturday, July 11, 2015 09:49 - CONCLUSION: Scattered patchy densities significantly improved from previous study. Tiny anterior right basilar pneumothorax. Right-sided chest tube in good position. Néstor Matamoros MD Head CT 06/18/151902 Signed Impressions: Service Date/Time: June 19:31 - CONCLUSION: Diffuse atrophy unchanged. No acute intracranial findings. Kush Briscoe MD Abdomen/Pelvis CT 06/18/151902 Signed Impressions: Service Date/Time: June 19:36 - CONCLUSION: 1. Chronic nonspecific urinary bladder wall thickening. Bladder collapsed with Valdez catheter in place. 2. Chronic bilateral mid to lower lung zone groundglass opacity. 3. Nonobstructing left renal calculus. 4. Distended rectum. Kush Briscoe MD Physical Exam GENERAL: eyes open, not following commands, on the vent SKIN: No generalized rash. Cool and dry. HEENT: Tennant conjunctivae, no icterus, moist mucosa NECK: Trach site looks ok. CARDIOVASCULAR: No murmur appreciated. RESPIRATORY: Coarse BS razia, decreased at bases GASTROINTESTINAL: Abdomen soft, non-tender, mildly distended. PEG tube site with no evidence of infection. MUSCULOSKELETAL: Edema in both hands. No pedal edema NEUROLOGICAL: Opens eyes spontaneously. No verbal response does, not follow commands. Peripheral IV line sites with no evidence of infection. ; Valdez in place, urine looks clear Assessment & Plan Remarks New fevers, temps better Acute tracheobronchitis. Steno malto and PSAE. Chest x-ray is negative, sputum yellow and thick. Acute on chronic respiratory failure was on trach and had to be placed on ventilator. - S/P upsizing of his trach Acute encephalopathy sepsis but has an underlying diagnosis of advanced dementia as well as advanced Parkinson's disease. Prior history of ESBL UTI - UC now with low colony count yeast and PSAE, valdez changed H/o ESBL organisms. C.tropicalis funguria cath associated. Prior history of MRSA colonization. Status post trach Status post gastrostomy tube with no evidence of infection. Stage II sacral decubitus ulcer present on admission. Recommendations Agree with DC Meropenem IV Start Levaquin IV for PSAE and Steno Malto. Continue Diflucan IV Follow C/S Monitor progress Monitor temps Weaning per CCM D/W RN to cover for me this weekend. Trina Moss MD Aug 21, 2015 10:35
[2015-08-21] MEDS: FLUCONAZOLE 200 MG PREMIX BAG 100 ML IV SCH (11:22)
[2015-08-21] MEDS: LEVOFLOXACIN 500 MG PREMIX INJ 100 ML IV SCH (11:23)
--- NOTE | 2015-08-21 15:13 | HHI.CCPN ---
Subjective Remarks/Hospital Course 06/17: Pt is a 54 yr man with multiple medial problems including Parkinson's disease, advanced dementia, hyponatremia, anxiety, pneumonia, GERD, cognitive disorder, and multidrug resistant UTI- ESBL02/19/15 , who resides in a correction. Pt by report was found by staff in correction to be less alert and having respiratory difficultly and fevers. Pt was brought to ED adn placed on ventilator. His workup was inclusive of labs, chest xray and ct head and abd/pelvis. WBC 16.4, +UTI, lactic acid 4, troponin ,0.02, BUN/ cre 18/ 0.76. CT head 06/18/15: diffuse atrophy unchanged. No acute intracranial findings ct abd/ pelvis with IV contrast: 06/18/15 Conclusion: 1. Chronic nonspecific urinary bladder wall thickening. Bladder collapsed with Putnam catheter in place. 2.Chronic bilateral mid to lower zone groundglass opacity. 3. Nonobstructing left renal calculus. 4. Distended rectum Pt admitted and fluid and abx ordered. 06/18: Drowsy, easily arousable. On mechanical ventilation via tracheostomy. Tachypneic. Resting tremor noted. 06/19: Drowsy, arousable. On mechanical ventilation via tracheostomy. 06/20: Drowsy, arousable. Remains on mechanical ventilation via tracheostomy. We'll repeat blood cultures, UA and urine cultures. Fluconazole IV added in view of yeast in urine. 07/06: Reconsulted as patient return to the ventilator on a right ventricular due to tachypnea. Low-grade temperatures. Tolerating tube feeding. Extremity encephalopathic demented patient with difficult neurological examination. 07/07: Status post chest tube placement by IR for right pneumothorax 07/06. Afebrile. Tolerating tube feeds. Positive BM. Currently tachypneic on the ventilator. Does not appear to be any acute distress. 07/08: Afebrile. Tolerating tube feeding. He is comfortable currently on CPAP trials 11/10. Positive BM. 07/09: Afebrile. Tolerating tube feeding. Appears comfortable on T bar. Positive BM. 07/10: Afebrile. Eyes are open. Remained on T piece overnight. Tolerating tube feeding. 07/11: MAXIMUM TEMPERATURE 100. Currently 98.6. Eyes are open. On ACV overnight secondary to "tachypnea and sweating". Switching back to PSV trials today. Goal is T piece during daytime, CPAP at night. 07/12: No acute events overnight. On PSV 15/5 -attempt TP up to 6 hours today. No pneumothorax on chest x-ray 07/13: Placed back on full ventilator support for tachypnea. Otherwise clinically unchanged. No fever today 07/14: Patient was on T piece yesterday evening, placed back on PSV overnight, patient mechanical ventilation this morning. Patient appears to be struggling with mechanical ventilation. Patient placed back on PSV with improvement 07/15: Patient placed back on mechanical ventilation last evening due to respiratory rate. It was indicated patient was tachypnea can the 40s. Patient on mechanical ventilation this time with respiration rate mid 20s. Chest tube still in place without any output, chest x-ray still indicating resolution of pneumothorax. 07/16: Patient seen and examined today. Patient placed back on mechanical ventilation overnight due to respiratory rate. Even on mechanical ventilation patient has respiration rate in the 30s. Patient afebrile, blood pressure stable. Continue vent weaning 07/17: Patient seen and examined. Currently afebrile. Currently on CPAP 15/5 @ 40%. Patient is awake with open mouth resting in bed in no apparent acute distress. Tolerating tube feeding. 2 bowel movements. 07/18: No neurological changes. Afebrile. 2 bowel moments. Tolerating tube feeding. We'll attempt TP trials today. On CPAP since 07/15 07/19 No events overnight. On CPAP with PS: 10, PEEP: 5 and FIO2 35%. Afebrile. On no sedation. 07/20 No events overnight. Tolerating CPAP. Afebrile. 07/21: Remains on CPAP. Attempt T piece trial today. Afebrile. One bowel movement. Tolerating tube feeding. 07/22: Afebrile. Positive BM. Tolerating tube feeding. Noted switched tracheostomy to #6 Shiley cuffed fenestrated. Neurologically unchanged 07/23: Afebrile. Positive BM. Tolerating tube feeding. Questionable leak in exchange trach. Place back on a rate/ACV overnight. Insufflated seems to be doing better at the present time. Will check chest x-ray. Possible he might need #6 XLT versus replacement of chronic #8 Shiley. 07/24: Tolerating TP today, RR in low 30s patient appears comfortable. No acute events overnight 07/25: Remains off the ventilator more than 36 hours now. Intermittently tachypneic probably breathing. Chest x-ray was clear yesterday. No acute events reported overnight. PEG not functioning per RN 08/02: Patient was transferred back to critical care service due to continuing ventilator management, tachypnea. Patient clinical status with no significant change. Patient with low-grade fever 100.2, 08/03: Patient seen and examined today. No significant change in clinical status. Patient still with chronic tachypnea. Patient afebrile now. 08/04: Patient seen and examined today. No change in clinical status. Patient still continues to have chronic tachypnea. Patient afebrile. Continue vent weaning 08/05: Patient seen and examined today. Patient had chest tube removed yesterday , chest x-ray shows redevelopment of pneumothorax. Chest tube replaced. Otherwise, patient still on ventilator with tachypnea. Afebrile 08/06: Patient seen and examined today. Patient went to have chest tube placed, repeat chest x-ray did not indicate any pneumothorax. No overnight events. We' ll need to pursue LTAC placement 08/07 No events overnight. On ventilator via trach. Afebrile. 08/08 Patient tolerated CPAP x4 hrs yesterday. Afebrile. On no sedation. 08/09 No events overnight. Tolerated CPAP x 12 hrs yesterday. Afebrile. 08/10 Patient tolerated TP's x 12 hrs yesterday back on ACV overnight. 08/11 No events overnight, currently on TP's with 40% FIO2. Afebrile. 08/12 On CPAP 10/5. Tolerated Tpiece 3 hours earlier today. Afebrile. 08/13 On CPAP 10/5. Not tolerating CPAP as well over last few days and RT notes challenge with suctioning respiratory secretions adequately. Discussing with healthcare proxy regarding exchange trach to 8.0. 08/14 Nursing and RT staff having continued difficulty suctioning respiratory secretions via 6.0 tracheostomy. KAREN Garcia did not consent to stoma dilation and trach upsize yesterday but said she would call back and let me know but no return call. Contacted again today and left a message. Afebrile. On CPAP 10/5. Brow furrowing on exam, appears to be in pain but pain not localizable. Tolerating tube feeds, had BM yesterday 08/15 Not tolerating CPAP today. Contacted healthcare surrogate again and discussed need for trach change. She consented and trach was dilated and up- sized to 8.0 Distal XLT to facilitate pulmonary toilet and to address volume leak. 08/16 No events overnight. Remains on ventilator via trach. Afebrile. Tolerating TF. 08/17 No events overnight. Afebrile. 08/18 Patient tolerated CPAP x 4 hrs yesterday. Afebrile.On ventilator via trach. 08/19 On CPAP 25/06. Temp max 99.3 Subjective: 08/20 Stenotrophomonas in sputum, started on Levaquin per ID. Temp max 99.8. On CPAP 20/09. Tube feeds were held because PEG was clogged but now PEG is functioning. Objective - Vital Signs Date Time Temp Pulse Resp B/P Pulse Ox O2 Delivery O2 Flow Rate FiO2 08/21/15 12:43 100 35 08/21/15 10:00 103 08/21/15 08:00 99.8 26 92/73 08/17/15 20:30 Mechanical Ventilator Intake and Output 08/20/15 08/20/15 08/20/15 07:59 15:59 23:59 Intake Total 779 ml 938 ml 930 ml Output Total 400 ml 500 ml 400 ml Balance 379 ml 438 ml 530 ml Result Diagram: 08/20/15 0643 08/20/15 0643 Other Results Laboratory Tests Test 08/18/15 08/19/15 11:30 04:14 Urine Color YELLOW Urine Turbidity CLOUDY Urine pH 7.5 Urine Specific Aline 1.016 Urine Protein 30 mg/dL Urine Glucose (UA) NEG mg/dL Urine Ketones NEG mg/dL Urine Occult Blood MOD Urine Nitrite NEG Urine Bilirubin NEG Urine Urobilinogen 2.0 MG/DL Urine Leukocyte Esterase LARGE Urine RBC 70 /hpf Urine WBC 42 /hpf Urine Squamous Epithelial <1 /hpf Cells Urine Amorphous Sediment MOD Urine Bacteria FEW /hpf Urine Mucus FEW /lpf Urine Yeast with Hyphae FEW Microscopic Urinalysis Comment CATH-CULTURE IND White Blood Count 13.1 TH/MM3 Red Blood Count 3.47 MIL/MM3 Hemoglobin 9.5 GM/DL Hematocrit 31.2 % Mean Corpuscular Volume 89.8 FL Mean Corpuscular Hemoglobin 27.5 PG Mean Corpuscular Hemoglobin 30.6 % Concent Red Cell Distribution Width 13.9 % Platelet Count 170 TH/MM3 Mean Platelet Volume 11.1 FL Neutrophils (%) (Auto) 78.2 % Lymphocytes (%) (Auto) 7.8 % Monocytes (%) (Auto) 6.0 % Eosinophils (%) (Auto) 7.3 % Basophils (%) (Auto) 0.7 % Neutrophils # (Auto) 10.3 TH/MM3 Lymphocytes # (Auto) 1.0 TH/MM3 Monocytes # (Auto) 0.8 TH/MM3 Eosinophils # (Auto) 1.0 TH/MM3 Basophils # (Auto) 0.1 TH/MM3 CBC Comment DIFF FINAL Differential Comment Sodium Level 147 MEQ/L Potassium Level 4.0 MEQ/L Chloride Level 105 MEQ/L Carbon Dioxide Level 35.2 MEQ/L Anion Gap 7 MEQ/L Blood Urea Nitrogen 20 MG/DL Creatinine 0.43 MG/DL Estimat Glomerular Filtration 208 ML/MIN Rate Random Glucose 126 MG/DL Calcium Level 9.6 MG/DL Imaging Last Impressions Chest X-Ray 08/18/15 0000 Signed Impressions: Service Date/Time: Tuesday, August 18, 2015 09:58 - CONCLUSION: No evidence of pneumonia. There is overlying artifact. Salazar Thurman MD Tunnelled Chest Tube Removal 08/05/15 1100 Signed Impressions: Service Date/Time: Wednesday, August 05, 2015 11:00 - CONCLUSION: Uncomplicated chest tube removal. Blaine Jackson MD Chest Tube Change 07/31/15 0000 Signed Impressions: Service Date/Time: Friday, July 31, 2015 14:34 - CONCLUSION: Uncomplicated reposition of previously placed chest tube as above. Blaine Jackson MD Chest Tube Insertion 07/30/15 0000 Signed Impressions: Service Date/Time: July 14:50 - CONCLUSION: Uncomplicated chest tube placement as above. Blaine Jackson MD Catheter Change 07/27/15 0000 Signed Impressions: Service Date/Time: Monday, July 27, 2015 14:43 - CONCLUSION: Uncomplicated gastrostomy tube exchange as above. Blaine Jackson MD Chest CT 07/11/15 0000 Signed Impressions: Service Date/Time: Saturday, July 11, 2015 09:49 - CONCLUSION: Scattered patchy densities significantly improved from previous study. Tiny anterior right basilar pneumothorax. Right-sided chest tube in good position. Néstor Matamoros MD Head CT 06/18/151902 Signed Impressions: Service Date/Time: June 19:31 - CONCLUSION: Diffuse atrophy unchanged. No acute intracranial findings. Kush Briscoe MD Abdomen/Pelvis CT 06/18/151902 Signed Impressions: Service Date/Time: June 19:36 - CONCLUSION: 1. Chronic nonspecific urinary bladder wall thickening. Bladder collapsed with Putnam catheter in place. 2. Chronic bilateral mid to lower lung zone groundglass opacity. 3. Nonobstructing left renal calculus. 4. Distended rectum. Kush Briscoe MD Objective Remarks GENERAL: 54-year-old male, cachectic, on CPAP via trach. HEENT: NC/AT. PERRL. MMM dry and pink. NECK: No JVD. 8.0 Distal XLT trach in place with no air leak. CARDIAC: RRR. S1/S2. No S4. No murmurs, clicks gallops or rubs. LUNGS: Tachypneic with bilateral rhonchi but no accessory muscle use. Equal breath sounds bilat, no wheeze. ABDOMEN: S/NT/ND. Bowel sounds present. EXTREMITIES: pulses are equal bilaterally. 1+ pedal edema NEUROLOGY: Patient with significant contractures of the right lower extremity, upper extremities. Eyes open spontaneously. Muscle wasting face, bilateral upper and lower extremities Procedures 07/26- PEG replacement 07/29- right pigtail catheter placement for new pneumothorax 07/29 Date of Insertion: Jul 30, 2015 A/P Assessment and Plan Neuro/Psych: Toxic metabolic Encephalopathy - chronic Parkinson's disease Cognitive disorder/Underlying dementia Depression CT head 06/18/15: - diffuse atrophy unchanged. No acute intracranial findings Continue Sinemet 25/100 q8 via PEG, Seroquel 50 mg twice a day, olanzapine 5 mg a night, Klonopin 2 mg every 8 hours, Paxil 20 daily and Neurontin 300 mg twice a day. These are [facility]dc home meds, dose of antipsychotics have been titrated up slightly since admit. Continue Lortab when necessary pain and fentanyl patch 50 g every 3 days for pain management. Fentanyl bolus prn breakthrough pain or if needed for turning/ nursing care/etc. Resp: Acute on chronic respiratory failure Chronic trach, Pneumonia Right pneumothorax status post pigtail catheter (resolved) Continue with vent support keep sat >92% Daily CPAP trials with transition to Tpiece as tolerated. Pulmonary Dr. Gaurav corey following. Pulm toilet, trach care. Exchanged to 8 Distal XLT on 08/15 to facilitate suctioning, trach care. Duo nebs every 6 hours when necessary Status post chest tube replacement by interventional radiology on 07/30, chest tube removed 08/04, repeat films do not indicate any pneumothorax Cardiac History of orthostasis History of CAD, HLP, Hypertension Continue Midodrine 5 mg twice a day Monitor HR and BP keep MAP>65mmHg GI: Malnutrition/protein calorie - moderate Status post PEG Hemorrhoids Gastroesophageal reflux disease - Tolerating Jevity 1.5 at 60 cc an hour per nutrition recommendations - Currently Prevacid 30 mg per PEG tube daily for GERD - Current Colace/senna for bowel regimen. FEN/renal: Nonobstructing left renal calculus Hypernatremia - Monitor renal function, I/O's. electrolytes replacement per protocol. -Continue Free H20 200ml Q8, check BMP in am. ID: Candiduria (heena tropicalis urine cx 08/17) ESBL positive Klebsiella/Pseudomonas pneumonia Stenotrophomonas in sputum 08/17 MRSA colonization sepsis UTI Klebsiella ESBL positive (has been treated) Continue with abx per ID: Diflucan 08/17. Levaquin started 08/20 for stenotrophomonas. ID following. Completed course of meropenem for 08/11-08/20 for Klebsiella ESBL/pseudomonas pneumonia. On Lactinex tid Urine cx 08/17 - heena tropicalis Blood culture 08/17 negative sputum culture 08/17 - pseudomonas and stenotrophomonas maltophilia. Urine culture: 08/02 Klebsiella pneumonia ESBL positive Urine culture: 08/02 Heena Tropicalis, C. Glabrata Sputum culture: 08/02 Pseudomonas, Klebsiella pneumonia ESBL positive Blood culture: 08/02 yeast species, Heena glabrata, Heena tropicalis - History of Multidrug resistant UTI- ESBL 02/19/15 , MRSA + 03/20/15 - Heena glabrata in urine 03/19/15 - Rechecked blood, sputum and urine cultures 07/06 no growth - 06/17 - blood cultures 2 - CONS/staph epi - 06/17 - sputum - ESBL positive Klebsiella/Pseudomonas Treated 15 days with tobramycin aerosols twice a day. - 06/17 - urine - C. glabrata/tropicalis - treated with Diflucan Endo: Euglycemic. Not requiring sliding scale Heme Anemia - Monitor CBC MSK Bilateral lower extremity Contractures Stage II sacral decubitus present on admission - Wound care evaluate and treat - Continue physical therapy Prophylaxis - GI - Prevacid - DVT - SCDs/ Lovenox. CCT 30 mins Leena Mistry MD Aug 21, 2015 15:12
--- NOTE | 2015-08-21 18:23 | HHI.PR ---
Subjective Remarks On CPAP /PSV 5/20, Fio2 35%,and tachypneic .Tolerated CPAP all day and nite. Remains Lethargic. Has copious secretions. Objective Vital Signs Date Time Temp Pulse Resp B/P Pulse Ox O2 Delivery O2 Flow Rate FiO2 08/21/15 18:00 92 08/21/15 17:48 98 35 08/21/15 16:00 98.7 84 34 100/62 91 08/21/15 16:00 84 08/21/15 14:00 83 08/21/15 12:43 100 35 08/21/15 12:00 103 08/21/15 12:00 35 08/21/15 12:00 99.0 86 31 92/55 91 08/21/15 10:00 103 08/21/15 08:00 99.8 85 26 92/73 97 08/21/15 08:00 85 08/21/15 08:00 35 08/21/15 07:59 100 35 08/21/15 06:00 84 08/21/15 04:00 35 08/21/15 04:00 77 08/21/15 04:00 99.0 77 23 94/58 98 08/21/15 03:59 99 35 08/21/15 02:00 79 08/21/15 01:25 98 35 08/21/15 00:00 99.2 86 29 99/56 97 08/21/15 00:00 86 08/21/15 00:00 35 08/20/15 22:00 86 08/20/15 21:33 97 35 08/20/15 20:00 98.8 81 26 100/61 97 08/20/15 20:00 81 08/20/15 20:00 35 I/O 08/20/15 08/20/15 08/20/15 08/21/15 08/21/15 08/21/15 07:00 15:00 23:00 07:00 15:00 23:00 Intake Total 779 ml 938 ml 930 ml 645 ml 623 ml Output Total 400 ml 500 ml 400 ml 300 ml 450 ml Balance 379 ml 438 ml 530 ml 345 ml 173 ml IV Total 76 ml 200 ml 234 ml 32 ml Tube Feeding 503 ml 538 ml 496 ml 413 ml 523 ml Other 200 ml 200 ml 200 ml 200 ml 100 ml Output Urine Total 400 ml 500 ml 400 ml 300 ml 450 ml # Bowel Movements 1 1 1 2 Result Diagram: 08/20/1543 08/20/1543 Objective Remarks This is a thin white male who in on the vent with a trach tube in place. HEENT: Pupils are equal and reactive to light.Throat dry. CHEST: Bilateral wheeze with basal crackles. Decreased breath sounds . CARDIOVASCULAR: S1 and S2 is normal. ABDOMEN: Soft, nondistended. He has a PEG tube in place. EXTREMITIES: No edema.muscle wasting. NEURO: Lethargic and Does not move his extremities . Assessment and Plan Assessment and Plan IMPRESSION 1. Respiratory failure, ventilator dependent 2. Sepsis, resolving. 3. UTI 4. Tracheobronchitis 5. Parkinson's disease 6. Dementia. 7. Severe Deconditioning. 8. Left Pneumothorax. Resolved. Plan : 1. CPAP/PSV 5/20, FIO2 35 % 2. Nebs qid , duoneb. 3. Antibiotics per ID. 4. T Bar 40 % for 1 hr if tolerating. 5. Levsin .125 mg tid via peg. 6. Ativan .5 mg q6h prn. 7. Cont Tube feeds at 60 CC 8. Lovenox 40 Mg S/Q daily. Darren Kiser MD Aug 21, 2015 18:23
[2015-08-21] MEDS: OLANZapine 5 MG TAB GT SCH (20:56)
[2015-08-21] MEDS: ENOXAPARIN SODIUM 40 MG/0.4 ML SYRINGE SQ SCH (20:56)
[2015-08-22] VITALS (18 sets, daily range): BP systolic 84–105; BP diastolic 58–67; PULSE 71–89; RESP 21–28; TEMP 97–99.1; O2SAT 96–99
[2015-08-22] MEDS: CHLORHEXIDINE GLUCONATE 2 % 1 PACK (2 CLOTHS) TOP SCH (02:31)
[2015-08-22] MEDS: clonazePAM 1 MG TAB PO SCH ×3 (05:16→20:53)
[2015-08-22] MEDS: FREE WATER G-TUBE SCH ×2 (05:16→20:54)
[2015-08-22] MEDS: CARBIDOPA/LEVODOPA 25 MG/100 MG TAB GT SCH ×3 (05:16→20:53)
[2015-08-22] MEDS: HYOSCYAMINE SOLN 0.125 MG/ML 15 ML BTL PO SCH ×3 (05:16→20:55)
--- NOTE | 2015-08-22 07:55 | HHI.CCPN ---
Subjective Remarks/Hospital Course 06/17: Pt is a 54 yr man with multiple medial problems including Parkinson's disease, advanced dementia, hyponatremia, anxiety, pneumonia, GERD, cognitive disorder, and multidrug resistant UTI- ESBL02/19/15 , who resides in a detention. Pt by report was found by staff in detention to be less alert and having respiratory difficultly and fevers. Pt was brought to ED adn placed on ventilator. His workup was inclusive of labs, chest xray and ct head and abd/pelvis. WBC 16.4, +UTI, lactic acid 4, troponin ,0.02, BUN/ cre 18/ 0.76. CT head 06/18/15: diffuse atrophy unchanged. No acute intracranial findings ct abd/ pelvis with IV contrast: 06/18/15 Conclusion: 1. Chronic nonspecific urinary bladder wall thickening. Bladder collapsed with Ptunam catheter in place. 2.Chronic bilateral mid to lower zone groundglass opacity. 3. Nonobstructing left renal calculus. 4. Distended rectum Pt admitted and fluid and abx ordered. 06/18: Drowsy, easily arousable. On mechanical ventilation via tracheostomy. Tachypneic. Resting tremor noted. 06/19: Drowsy, arousable. On mechanical ventilation via tracheostomy. 06/20: Drowsy, arousable. Remains on mechanical ventilation via tracheostomy. We'll repeat blood cultures, UA and urine cultures. Fluconazole IV added in view of yeast in urine. 07/06: Reconsulted as patient return to the ventilator on a right ventricular due to tachypnea. Low-grade temperatures. Tolerating tube feeding. Extremity encephalopathic demented patient with difficult neurological examination. 07/07: Status post chest tube placement by IR for right pneumothorax 07/06. Afebrile. Tolerating tube feeds. Positive BM. Currently tachypneic on the ventilator. Does not appear to be any acute distress. 07/08: Afebrile. Tolerating tube feeding. He is comfortable currently on CPAP trials 11/10. Positive BM. 07/09: Afebrile. Tolerating tube feeding. Appears comfortable on T bar. Positive BM. 07/10: Afebrile. Eyes are open. Remained on T piece overnight. Tolerating tube feeding. 07/11: MAXIMUM TEMPERATURE 100. Currently 98.6. Eyes are open. On ACV overnight secondary to "tachypnea and sweating". Switching back to PSV trials today. Goal is T piece during daytime, CPAP at night. 07/12: No acute events overnight. On PSV 15/5 -attempt TP up to 6 hours today. No pneumothorax on chest x-ray 07/13: Placed back on full ventilator support for tachypnea. Otherwise clinically unchanged. No fever today 07/14: Patient was on T piece yesterday evening, placed back on PSV overnight, patient mechanical ventilation this morning. Patient appears to be struggling with mechanical ventilation. Patient placed back on PSV with improvement 07/15: Patient placed back on mechanical ventilation last evening due to respiratory rate. It was indicated patient was tachypnea can the 40s. Patient on mechanical ventilation this time with respiration rate mid 20s. Chest tube still in place without any output, chest x-ray still indicating resolution of pneumothorax. 07/16: Patient seen and examined today. Patient placed back on mechanical ventilation overnight due to respiratory rate. Even on mechanical ventilation patient has respiration rate in the 30s. Patient afebrile, blood pressure stable. Continue vent weaning 07/17: Patient seen and examined. Currently afebrile. Currently on CPAP 15/5 @ 40%. Patient is awake with open mouth resting in bed in no apparent acute distress. Tolerating tube feeding. 2 bowel movements. 07/18: No neurological changes. Afebrile. 2 bowel moments. Tolerating tube feeding. We'll attempt TP trials today. On CPAP since 07/15 07/19 No events overnight. On CPAP with PS: 10, PEEP: 5 and FIO2 35%. Afebrile. On no sedation. 07/20 No events overnight. Tolerating CPAP. Afebrile. 07/21: Remains on CPAP. Attempt T piece trial today. Afebrile. One bowel movement. Tolerating tube feeding. 07/22: Afebrile. Positive BM. Tolerating tube feeding. Noted switched tracheostomy to #6 Shiley cuffed fenestrated. Neurologically unchanged 07/23: Afebrile. Positive BM. Tolerating tube feeding. Questionable leak in exchange trach. Place back on a rate/ACV overnight. Insufflated seems to be doing better at the present time. Will check chest x-ray. Possible he might need #6 XLT versus replacement of chronic #8 Shiley. 07/24: Tolerating TP today, RR in low 30s patient appears comfortable. No acute events overnight 07/25: Remains off the ventilator more than 36 hours now. Intermittently tachypneic probably breathing. Chest x-ray was clear yesterday. No acute events reported overnight. PEG not functioning per RN 08/02: Patient was transferred back to critical care service due to continuing ventilator management, tachypnea. Patient clinical status with no significant change. Patient with low-grade fever 100.2, 08/03: Patient seen and examined today. No significant change in clinical status. Patient still with chronic tachypnea. Patient afebrile now. 08/04: Patient seen and examined today. No change in clinical status. Patient still continues to have chronic tachypnea. Patient afebrile. Continue vent weaning 08/05: Patient seen and examined today. Patient had chest tube removed yesterday , chest x-ray shows redevelopment of pneumothorax. Chest tube replaced. Otherwise, patient still on ventilator with tachypnea. Afebrile 08/06: Patient seen and examined today. Patient went to have chest tube placed, repeat chest x-ray did not indicate any pneumothorax. No overnight events. We' ll need to pursue LTAC placement 08/07 No events overnight. On ventilator via trach. Afebrile. 08/08 Patient tolerated CPAP x4 hrs yesterday. Afebrile. On no sedation. 08/09 No events overnight. Tolerated CPAP x 12 hrs yesterday. Afebrile. 08/10 Patient tolerated TP's x 12 hrs yesterday back on ACV overnight. 08/11 No events overnight, currently on TP's with 40% FIO2. Afebrile. 08/12 On CPAP 10/5. Tolerated Tpiece 3 hours earlier today. Afebrile. 08/13 On CPAP 10/5. Not tolerating CPAP as well over last few days and RT notes challenge with suctioning respiratory secretions adequately. Discussing with healthcare proxy regarding exchange trach to 8.0. 08/14 Nursing and RT staff having continued difficulty suctioning respiratory secretions via 6.0 tracheostomy. KAREN Garcia did not consent to stoma dilation and trach upsize yesterday but said she would call back and let me know but no return call. Contacted again today and left a message. Afebrile. On CPAP 10/5. Brow furrowing on exam, appears to be in pain but pain not localizable. Tolerating tube feeds, had BM yesterday 08/15 Not tolerating CPAP today. Contacted healthcare surrogate again and discussed need for trach change. She consented and trach was dilated and up- sized to 8.0 Distal XLT to facilitate pulmonary toilet and to address volume leak. 08/16 No events overnight. Remains on ventilator via trach. Afebrile. Tolerating TF. 08/17 No events overnight. Afebrile. 08/18 Patient tolerated CPAP x 4 hrs yesterday. Afebrile.On ventilator via trach. 08/19 On CPAP 25/06. Temp max 99.3 Subjective: 08/20 Stenotrophomonas in sputum, started on Levaquin per ID. Temp max 99.8. On CPAP 20/09. Tube feeds were held because PEG was clogged but now PEG is functioning. 08/21 No events overnight. Afebrile. Remains on ventilator via trach. Has been tolerating CPAP trials for last 2 days. Objective - Vital Signs Date Time Temp Pulse Resp B/P Pulse Ox O2 Delivery O2 Flow Rate FiO2 08/22/15 06:00 89 08/22/15 04:03 98 35 08/22/15 04:00 99.1 21 102/61 Intake and Output 08/21/15 08/21/15 08/22/15 08:00 16:00 00:00 Intake Total 645 ml 623 ml 549 ml Output Total 300 ml 450 ml 400 ml Balance 345 ml 173 ml 149 ml Result Diagram: 08/20/15 0643 08/20/15 0643 Imaging Last Impressions Chest X-Ray 08/18/15 0000 Signed Impressions: Service Date/Time: Tuesday, August 18, 2015 09:58 - CONCLUSION: No evidence of pneumonia. There is overlying artifact. Salazar Thurman MD Tunnelled Chest Tube Removal 08/05/15 1100 Signed Impressions: Service Date/Time: Wednesday, August 05, 2015 11:00 - CONCLUSION: Uncomplicated chest tube removal. Blaine Jackson MD Chest Tube Change 07/31/15 0000 Signed Impressions: Service Date/Time: Friday, July 31, 2015 14:34 - CONCLUSION: Uncomplicated reposition of previously placed chest tube as above. Blaine Jackson MD Chest Tube Insertion 07/30/15 0000 Signed Impressions: Service Date/Time: July 14:50 - CONCLUSION: Uncomplicated chest tube placement as above. Blaine Jackson MD Catheter Change 07/27/15 0000 Signed Impressions: Service Date/Time: Monday, July 27, 2015 14:43 - CONCLUSION: Uncomplicated gastrostomy tube exchange as above. Blaine Jackson MD Chest CT 07/11/15 0000 Signed Impressions: Service Date/Time: Saturday, July 11, 2015 09:49 - CONCLUSION: Scattered patchy densities significantly improved from previous study. Tiny anterior right basilar pneumothorax. Right-sided chest tube in good position. Néstor Matamoros MD Head CT 06/18/151902 Signed Impressions: Service Date/Time: , June 18, 2015 19:31 - CONCLUSION: Diffuse atrophy unchanged. No acute intracranial findings. Kush Briscoe MD Abdomen/Pelvis CT 06/18/151902 Signed Impressions: Service Date/Time: June 19:36 - CONCLUSION: 1. Chronic nonspecific urinary bladder wall thickening. Bladder collapsed with Putnam catheter in place. 2. Chronic bilateral mid to lower lung zone groundglass opacity. 3. Nonobstructing left renal calculus. 4. Distended rectum. Kush Briscoe MD Objective Remarks GENERAL: 54-year-old male, cachectic, on CPAP via trach. HEENT: NC/AT. PERRL. MMM dry and pink. NECK: No JVD. 8.0 Distal XLT trach in place with no air leak. CARDIAC: RRR. S1/S2. No S4. No murmurs, clicks gallops or rubs. LUNGS: Tachypneic with bilateral rhonchi but no accessory muscle use. Equal breath sounds bilat, no wheeze. ABDOMEN: S/NT/ND. Bowel sounds present. EXTREMITIES: pulses are equal bilaterally. 1+ pedal edema NEUROLOGY: Patient with significant contractures of the right lower extremity, upper extremities. Eyes open spontaneously. Muscle wasting face, bilateral upper and lower extremities Procedures 07/26- PEG replacement 07/29- right pigtail catheter placement for new pneumothorax 07/29 Date of Insertion: Jul 30, 2015 A/P Assessment and Plan Neuro/Psych: Toxic metabolic Encephalopathy - chronic Parkinson's disease Cognitive disorder/Underlying dementia Depression CT head 06/18/15: - diffuse atrophy unchanged. No acute intracranial findings Continue Sinemet 25/100 q8 via PEG, Seroquel 50 mg twice a day, olanzapine 5 mg a night, Klonopin 2 mg every 8 hours, Paxil 20 daily and Neurontin 300 mg twice a day. These are [employer] home meds, dose of antipsychotics have been titrated up slightly since admit. Continue Lortab when necessary pain and fentanyl patch 50 g every 3 days for pain management. Fentanyl bolus prn breakthrough pain or if needed for turning/ nursing care/etc. Resp: Acute on chronic respiratory failure Chronic trach, Pneumonia Right pneumothorax status post pigtail catheter (resolved) Continue with vent support keep sat >92% Daily CPAP trials with transition to Tpiece as tolerated. Pulmonary Dr. Gaurav corey following. Pulm toilet, trach care. Exchanged to 8 Distal XLT on 08/15 to facilitate suctioning, trach care. Duo nebs every 6 hours when necessary Status post chest tube replacement by interventional radiology on 07/30, chest tube removed 08/04, repeat films do not indicate any pneumothorax Cardiac History of orthostasis History of CAD, HLP, Hypertension Continue Midodrine 5 mg twice a day Monitor HR and BP keep MAP>65mmHg GI: Malnutrition/protein calorie - moderate Status post PEG Hemorrhoids Gastroesophageal reflux disease - Tolerating Jevity 1.5 at 60 cc an hour per nutrition recommendations - Currently Prevacid 30 mg per PEG tube daily for GERD - Current Colace/senna for bowel regimen. FEN/renal: Nonobstructing left renal calculus Hypernatremia - Monitor renal function, I/O's. electrolytes replacement per protocol. -Change Free H20 200ml Q12, ID: Candiduria (heena tropicalis urine cx 08/17) ESBL positive Klebsiella/Pseudomonas pneumonia Stenotrophomonas in sputum 08/17 MRSA colonization sepsis UTI Klebsiella ESBL positive (has been treated) Continue with abx per ID: Diflucan 08/17. Levaquin started 08/20 for Stenotrophomonas. ID following. Completed course of meropenem for 08/11-08/20 for Klebsiella ESBL/pseudomonas pneumonia. On Lactinex tid Urine cx 08/17 - heena tropicalis Blood culture 08/17 negative sputum culture 08/17 - pseudomonas and Stenotrophomonas maltophilia. Urine culture: 08/02 Klebsiella pneumonia ESBL positive Urine culture: 08/02 Heena Tropicalis, C. Glabrata Sputum culture: 08/02 Pseudomonas, Klebsiella pneumonia ESBL positive Blood culture: 08/02 yeast species, Heena glabrata, Heena tropicalis - History of Multidrug resistant UTI- ESBL 02/19/15 , MRSA + 03/20/15 - Heena glabrata in urine 03/19/15 - Rechecked blood, sputum and urine cultures 07/06 no growth - 06/17 - blood cultures 2 - CONS/staph epi - 06/17 - sputum - ESBL positive Klebsiella/Pseudomonas Treated 15 days with tobramycin aerosols twice a day. - 06/17 - urine - C. glabrata/tropicalis - treated with Diflucan Endo: Euglycemic. Not requiring sliding scale Heme Anemia - Monitor CBC MSK Bilateral lower extremity Contractures Stage II sacral decubitus present on admission - Wound care evaluate and treat - Continue physical therapy Prophylaxis - GI - Prevacid - DVT - SCDs/ Lovenox. Check labs today CCT 30 mins Antonio Carr MD Aug 22, 2015 07:55
[2015-08-22] MEDS: REMOVE OLD PATCH TD SCH (08:00)
[2015-08-22] MEDS: CHLORHEXIDINE 0.12% (ORAL KIT) 15 ML CUP MT SCH ×2 (08:00→20:55)
[2015-08-22] MEDS: COLLAGENASE OINT 30 GM TUBE TOP SCH (08:01)
[2015-08-22] MEDS: ARTIFICIAL TEARS OPTH SOLN 15 ML BTL EACH EYE SCH ×3 (08:01→17:58)
[2015-08-22] MEDS: fentaNYL 50 MCG/HR PATCH TD SCH (08:02)
[2015-08-22] MEDS: QUEtiapine FUMARATE 25 MG TAB G-TUBE SCH ×2 (08:02→20:54)
[2015-08-22] MEDS: SENNOSIDES SYRUP 8.8 MG/5 ML CUP PO SCH (08:02)
[2015-08-22] MEDS: MIDODRINE 5 MG TAB G-TUBE SCH ×2 (08:02→20:54)
[2015-08-22] MEDS: LANSOPRAZOLE SOLUTAB 30 MG TAB NG SCH (08:02)
[2015-08-22] MEDS: LACTOBACILLUS ACIDOPHILUS TAB PO SCH ×3 (08:02→17:58)
[2015-08-22] MEDS: PARoxetine HCL 20 MG TAB G-TUBE SCH (08:02)
[2015-08-22] MEDS: GABAPENTIN 300 MG CAP G-TUBE SCH ×2 (08:02→20:54)
[2015-08-22] MEDS: SODIUM CHLORIDE 0.9% FLUSH 5 ML FLUSH IVF SCH ×2 (08:03→20:54)
--- NOTE | 2015-08-22 09:47 | HHI.IDPN ---
Subjective Subjective Remarks ID COVERAGE FOR DR PUENTES Chart reviewed Mr. Foreman is a 54-year-old male with past medical history significant for Parkinson's disease, advanced dementia, hyponatremia, history of ESBL UTI. Admitted with sepsis. Now being treated for tracheobronchitis and C.tropicalis in urine Cath associated. Notes reviewed Temps ok Tolerating CPAP Sputum with PSAE and Sten mal BP ok No diarrhea Antibiotics Levaquin Diflucan Lines Line sites with no e/o infection Past Medical History reviewed Allergies: Coded Allergies: *MDRO Multi-Drug Resistant Organism (Verified Adverse Reaction, Unknown, ) ESBL E. coli (urine) - 02/19/2015; ESBL K. pneumoniae (sputum) - 06/18/15, (urine) - 08/03/15, (sputum) - 08/03/15 MRSA PCR POSITIVE - 03/20/2015 Objective . Vital Signs Date Time Temp Pulse Resp B/P Pulse Ox O2 Delivery O2 Flow Rate FiO2 08/22/15 09:03 98 35 08/22/15 09:00 35 08/22/15 06:00 89 08/22/15 04:03 98 35 08/22/15 04:00 35 08/22/15 04:00 81 08/22/15 04:00 99.1 81 21 102/61 96 08/22/15 02:00 79 08/22/15 00:33 98 35 08/22/15 00:00 98.8 86 28 91/65 98 08/22/15 00:00 86 08/22/15 00:00 35 08/21/15 22:00 92 08/21/15 20:29 98 35 08/21/15 20:00 99.2 84 30 92/59 97 08/21/15 20:00 35 08/21/15 20:00 84 08/21/15 18:00 92 08/21/15 17:48 98 35 08/21/15 16:00 98.7 84 34 100/62 91 08/21/15 16:00 84 08/21/15 16:00 35 08/21/15 14:00 83 08/21/15 12:43 100 35 08/21/15 12:00 103 08/21/15 12:00 35 08/21/15 12:00 99.0 86 31 92/55 91 08/21/15 10:00 103 08/21/15 08/21/15 08/22/15 15:00 23:00 07:00 Intake Total 623 ml 549 ml 753 ml Output Total 450 ml 400 ml 350 ml Balance 173 ml 149 ml 403 ml IV Total 14 ml 37 ml Tube Feeding 523 ml 335 ml 516 ml Other 100 ml 200 ml 200 ml Output Urine Total 450 ml 400 ml 350 ml # Bowel Movements 2 0 1 Imaging Chest X-Ray 08/18/15 0000 Signed Impressions: Service Date/Time: Tuesday, August 18, 2015 09:58 - CONCLUSION: No evidence of pneumonia. There is overlying artifact. Salazar Thurman MD Chest X-Ray 08/16/15 0000 Signed Impressions: Service Date/Time: Sunday, August 16, 2015 15:33 - CONCLUSION: No acute disease. Jeramie Manjarrez MD Tunnelled Chest Tube Removal 08/05/15 1100 Signed Impressions: Service Date/Time: Wednesday, August 05, 2015 11:00 - CONCLUSION: Uncomplicated chest tube removal. Blaine Jackson MD Chest Tube Change 07/31/15 0000 Signed Impressions: Service Date/Time: Friday, July 31, 2015 14:34 - CONCLUSION: Uncomplicated reposition of previously placed chest tube as above. Blaine Jackson MD Chest Tube Insertion 07/30/15 0000 Signed Impressions: Service Date/Time: July 14:50 - CONCLUSION: Uncomplicated chest tube placement as above. Blaine Jackson MD Catheter Change 07/27/15 0000 Signed Impressions: Service Date/Time: Monday, July 27, 2015 14:43 - CONCLUSION: Uncomplicated gastrostomy tube exchange as above. Blaine Jackson MD Chest CT 07/11/15 0000 Signed Impressions: Service Date/Time: Saturday, July 11, 2015 09:49 - CONCLUSION: Scattered patchy densities significantly improved from previous study. Tiny anterior right basilar pneumothorax. Right-sided chest tube in good position. Néstor Matamoros MD Head CT 06/18/151902 Signed Impressions: Service Date/Time: June 19:31 - CONCLUSION: Diffuse atrophy unchanged. No acute intracranial findings. Kush Briscoe MD Abdomen/Pelvis CT 06/18/151902 Signed Impressions: Service Date/Time: June 19:36 - CONCLUSION: 1. Chronic nonspecific urinary bladder wall thickening. Bladder collapsed with Valdez catheter in place. 2. Chronic bilateral mid to lower lung zone groundglass opacity. 3. Nonobstructing left renal calculus. 4. Distended rectum. Kush Briscoe MD Physical Exam GENERAL: eyes open, not following commands, on the vent SKIN: No generalized rash. Cool and dry. HEENT: [place] conjunctivae, no icterus, moist mucosa NECK: Trach site looks ok. CARDIOVASCULAR: No murmur appreciated. RESPIRATORY: Coarse BS razia, decreased at bases GASTROINTESTINAL: Abdomen soft, non-tender, mildly distended. PEG tube site with no evidence of infection. MUSCULOSKELETAL: Edema in both hands. No pedal edema NEUROLOGICAL: Opens eyes spontaneously. No verbal response does, not follow commands. Peripheral IV line sites with no evidence of infection. ; Vladez in place, urine looks clear Assessment & Plan Remarks New fevers, temps better Acute tracheobronchitis. - Steno malto and PSAE. - Chest x-ray is negative, sputum yellow and thick. Acute on chronic respiratory failure was on trach and had to be placed on ventilator. - S/P upsizing of his trach Acute encephalopathy sepsis but has an underlying diagnosis of advanced dementia as well as advanced Parkinson's disease. Prior history of ESBL UTI - UC now with low colony count yeast and PSAE, valdez changed H/o ESBL organisms. C.tropicalis funguria cath associated. Prior history of MRSA colonization. Status post trach Status post gastrostomy tube with no evidence of infection. Stage II sacral decubitus ulcer present on admission. Recommendations Continue Levaquin IV for PSAE and Steno Malto. Continue Diflucan IV Follow C/S Monitor progress Monitor temps Weaning per [facility] Bhavna Weeks MD Aug 22, 2015 09:47
[2015-08-22 11:19] LABS: AUTOMATED NEUTROPHIL # 5.6 TH/MM3 (1.8-7.7); BASOPHIL % 0.4 % (0.0-2.0); EOSINOPHIL % 11.2 % (0.0-4.0); HEMATOCRIT 26.3 % (39.0-51.0); HEMO FLAGS DIFF FINAL; LYMPH % 15.3 % (9.0-44.0); LYMPHOCYTE # 1.3 TH/MM3 (1.0-4.8); MEAN CELL VOLUME 88.2 FL (80.0-100.0); MEAN CORPUSCULAR HEMOGLOBIN 27.9 PG (27.0-34.0); MEAN CORPUSCULAR HGB CONC 31.7 % (32.0-36.0); MONO % 8.7 % (0.0-8.0); NEUT % 64.4 % (16.0-70.0); PLATELET COUNT 157 TH/MM3 (150-450); RED BLOOD COUNT 2.98 MIL/MM3 (4.50-5.90); RED CELL DISTRIBUTION WIDTH 14.3 % (11.6-17.2); WHITE BLOOD COUNT 8.6 TH/MM3 (4.0-11.0)
[2015-08-22] MEDS: FLUCONAZOLE 200 MG PREMIX BAG 100 ML IV SCH (11:22)
[2015-08-22 11:31] LABS: BICARBONATE 37.8 MEQ/L (21.0-32.0); POTASSIUM 4.2 MEQ/L (3.5-5.1)
[2015-08-22] MEDS: LEVOFLOXACIN 500 MG PREMIX INJ 100 ML IV SCH (12:22)
--- NOTE | 2015-08-22 16:27 | HHI.PR ---
Subjective Remarks 54 YOWM with ChRF,Trach, multiple uti No fever Gets anxious. No Fever Mod amount of trach secretions. Opens eyes, does't follow commands Objective Vital Signs Vital Signs Date Time Temp Pulse Resp B/P Pulse Ox O2 Delivery O2 Flow Rate FiO2 08/22/15 16:00 78 08/22/15 16:00 97.0 78 28 103/67 96 08/22/15 16:00 35 08/22/15 14:34 99 35 08/22/15 14:00 71 08/22/15 12:00 35 08/22/15 12:00 98.3 79 23 89/59 99 08/22/15 12:00 79 08/22/15 11:55 98 35 08/22/15 10:00 84 08/22/15 09:53 26 08/22/15 09:03 98 35 08/22/15 09:00 35 08/22/15 08:00 35 08/22/15 08:00 82 08/22/15 08:00 99.0 87 24 105/63 98 08/22/15 06:00 89 08/22/15 04:03 98 35 08/22/15 04:00 35 08/22/15 04:00 81 08/22/15 04:00 99.1 81 21 102/61 96 08/22/15 02:00 79 08/22/15 00:33 98 35 08/22/15 00:00 98.8 86 28 91/65 98 08/22/15 00:00 86 08/22/15 00:00 35 08/21/15 22:00 92 08/21/15 20:29 98 35 08/21/15 20:00 99.2 84 30 92/59 97 08/21/15 20:00 35 08/21/15 20:00 84 08/21/15 18:00 92 08/21/15 17:48 98 35 I/O 08/21/15 08/21/15 08/21/15 08/22/15 08/22/15 08/22/15 07:00 15:00 23:00 07:00 15:00 23:00 Intake Total 645 ml 623 ml 549 ml 753 ml 1029 ml Output Total 300 ml 450 ml 400 ml 350 ml 650 ml Balance 345 ml 173 ml 149 ml 403 ml 379 ml IV Total 32 ml 14 ml 37 ml 237 ml Tube Feeding 413 ml 523 ml 335 ml 516 ml 672 ml Tube Irrigant 120 ml Other 200 ml 100 ml 200 ml 200 ml Output Urine Total 300 ml 450 ml 400 ml 350 ml 650 ml # Bowel Movements 1 2 0 1 0 Result Diagram: 08/22/15 1037 08/22/15 1037 Objective Remarks GENERAL: MBMN male on Vent. SKIN: Warm and dry. HEAD: Normocephalic. EYES: No scleral icterus. No injection or drainage. NECK: Supple, trachea midline. No JVD or lymphadenopathy. has trach CARDIOVASCULAR: Regular rate and rhythm without murmurs, gallops, or rubs. RESPIRATORY: Breath sounds equal bilaterally. No accessory muscle use. GASTROINTESTINAL: Abdomen soft, non-tender, nondistended. PEG tube in place MUSCULOSKELETAL: No cyanosis, or edema. BACK: Nontender without obvious deformity. No CVA tenderness. A/P Assessment and Plan VDRF S/P Trach Parkinson's diasease Dementia PLAN: TF Ativan 0.5 mg tid prn Cont CPAP Rest with ACV Severiano Ag MD Aug 22, 2015 16:27
[2015-08-22] MEDS: OLANZapine 5 MG TAB GT SCH (20:53)
[2015-08-22] MEDS: ENOXAPARIN SODIUM 40 MG/0.4 ML SYRINGE SQ SCH (20:55)
[2015-08-22 21:01] LABS: MEAN CORPUSCULAR HGB CONC 30.7 % (32.0-36.0)
[2015-08-23] VITALS (19 sets, daily range): BP systolic 90–100; BP diastolic 61–66; PULSE 79–93; RESP 21–34; TEMP 97–99; O2SAT 93–100
[2015-08-23] MEDS: CHLORHEXIDINE GLUCONATE 2 % 1 PACK (2 CLOTHS) TOP SCH (04:00)
[2015-08-23 05:15] LABS: AUTOMATED NEUTROPHIL # 5.3 TH/MM3 (1.8-7.7); BASOPHIL % 0.6 % (0.0-2.0); EOSINOPHIL # 1.1 TH/MM3 (0-0.4); EOSINOPHIL % 13.1 % (0.0-4.0); HEMO FLAGS DIFF FINAL; LYMPH % 13.5 % (9.0-44.0); LYMPHOCYTE # 1.1 TH/MM3 (1.0-4.8); MEAN CELL VOLUME 88.8 FL (80.0-100.0); MEAN CORPUSCULAR HEMOGLOBIN 27.3 PG (27.0-34.0); MONO % 9.1 % (0.0-8.0); NEUT % 63.7 % (16.0-70.0); PLATELET COUNT 166 TH/MM3 (150-450); RED BLOOD COUNT 3.04 MIL/MM3 (4.50-5.90); RED CELL DISTRIBUTION WIDTH 13.9 % (11.6-17.2); WHITE BLOOD COUNT 8.3 TH/MM3 (4.0-11.0)
[2015-08-23 05:44] LABS: POTASSIUM 4.3 MEQ/L (3.5-5.1)
[2015-08-23] MEDS: CARBIDOPA/LEVODOPA 25 MG/100 MG TAB GT SCH ×3 (05:45→20:43)
[2015-08-23] MEDS: clonazePAM 1 MG TAB PO SCH ×3 (05:46→20:43)
[2015-08-23] MEDS: HYOSCYAMINE SOLN 0.125 MG/ML 15 ML BTL PO SCH ×3 (05:46→20:42)
[2015-08-23] MEDS: CHLORHEXIDINE 0.12% (ORAL KIT) 15 ML CUP MT SCH ×2 (08:24→20:42)
[2015-08-23] MEDS: COLLAGENASE OINT 30 GM TUBE TOP SCH (08:24)
[2015-08-23] MEDS: FREE WATER G-TUBE SCH ×2 (08:24→20:43)
[2015-08-23] MEDS: ARTIFICIAL TEARS OPTH SOLN 15 ML BTL EACH EYE SCH ×3 (08:24→17:21)
[2015-08-23] MEDS: GABAPENTIN 300 MG CAP G-TUBE SCH ×2 (08:25→20:43)
[2015-08-23] MEDS: LANSOPRAZOLE SOLUTAB 30 MG TAB NG SCH (08:25)
[2015-08-23] MEDS: QUEtiapine FUMARATE 25 MG TAB G-TUBE SCH ×2 (08:25→20:43)
[2015-08-23] MEDS: LACTOBACILLUS ACIDOPHILUS TAB PO SCH ×3 (08:25→17:21)
[2015-08-23] MEDS: MIDODRINE 5 MG TAB G-TUBE SCH ×2 (08:25→20:43)
[2015-08-23] MEDS: SODIUM CHLORIDE 0.9% FLUSH 5 ML FLUSH IVF SCH ×2 (08:25→20:42)
[2015-08-23] MEDS: SENNOSIDES SYRUP 8.8 MG/5 ML CUP PO SCH (08:25)
[2015-08-23] MEDS: PARoxetine HCL 20 MG TAB G-TUBE SCH (08:25)
--- NOTE | 2015-08-23 08:38 | HHI.CCPN ---
Subjective Remarks/Hospital Course 06/17: Pt is a 54 yr man with multiple medial problems including Parkinson's disease, advanced dementia, hyponatremia, anxiety, pneumonia, GERD, cognitive disorder, and multidrug resistant UTI- ESBL02/19/15 , who resides in a alf. Pt by report was found by staff in alf to be less alert and having respiratory difficultly and fevers. Pt was brought to ED adn placed on ventilator. His workup was inclusive of labs, chest xray and ct head and abd/pelvis. WBC 16.4, +UTI, lactic acid 4, troponin ,0.02, BUN/ cre 18/ 0.76. CT head 06/18/15: diffuse atrophy unchanged. No acute intracranial findings ct abd/ pelvis with IV contrast: 06/18/15 Conclusion: 1. Chronic nonspecific urinary bladder wall thickening. Bladder collapsed with Putnam catheter in place. 2.Chronic bilateral mid to lower zone groundglass opacity. 3. Nonobstructing left renal calculus. 4. Distended rectum Pt admitted and fluid and abx ordered. 06/18: Drowsy, easily arousable. On mechanical ventilation via tracheostomy. Tachypneic. Resting tremor noted. 06/19: Drowsy, arousable. On mechanical ventilation via tracheostomy. 06/20: Drowsy, arousable. Remains on mechanical ventilation via tracheostomy. We'll repeat blood cultures, UA and urine cultures. Fluconazole IV added in view of yeast in urine. 07/06: Reconsulted as patient return to the ventilator on a right ventricular due to tachypnea. Low-grade temperatures. Tolerating tube feeding. Extremity encephalopathic demented patient with difficult neurological examination. 07/07: Status post chest tube placement by IR for right pneumothorax 07/06. Afebrile. Tolerating tube feeds. Positive BM. Currently tachypneic on the ventilator. Does not appear to be any acute distress. 07/08: Afebrile. Tolerating tube feeding. He is comfortable currently on CPAP trials 11/10. Positive BM. 07/09: Afebrile. Tolerating tube feeding. Appears comfortable on T bar. Positive BM. 07/10: Afebrile. Eyes are open. Remained on T piece overnight. Tolerating tube feeding. 07/11: MAXIMUM TEMPERATURE 100. Currently 98.6. Eyes are open. On ACV overnight secondary to "tachypnea and sweating". Switching back to PSV trials today. Goal is T piece during daytime, CPAP at night. 07/12: No acute events overnight. On PSV 15/5 -attempt TP up to 6 hours today. No pneumothorax on chest x-ray 07/13: Placed back on full ventilator support for tachypnea. Otherwise clinically unchanged. No fever today 07/14: Patient was on T piece yesterday evening, placed back on PSV overnight, patient mechanical ventilation this morning. Patient appears to be struggling with mechanical ventilation. Patient placed back on PSV with improvement 07/15: Patient placed back on mechanical ventilation last evening due to respiratory rate. It was indicated patient was tachypnea can the 40s. Patient on mechanical ventilation this time with respiration rate mid 20s. Chest tube still in place without any output, chest x-ray still indicating resolution of pneumothorax. 07/16: Patient seen and examined today. Patient placed back on mechanical ventilation overnight due to respiratory rate. Even on mechanical ventilation patient has respiration rate in the 30s. Patient afebrile, blood pressure stable. Continue vent weaning 07/17: Patient seen and examined. Currently afebrile. Currently on CPAP 15/5 @ 40%. Patient is awake with open mouth resting in bed in no apparent acute distress. Tolerating tube feeding. 2 bowel movements. 07/18: No neurological changes. Afebrile. 2 bowel moments. Tolerating tube feeding. We'll attempt TP trials today. On CPAP since 07/15 07/19 No events overnight. On CPAP with PS: 10, PEEP: 5 and FIO2 35%. Afebrile. On no sedation. 07/20 No events overnight. Tolerating CPAP. Afebrile. 07/21: Remains on CPAP. Attempt T piece trial today. Afebrile. One bowel movement. Tolerating tube feeding. 07/22: Afebrile. Positive BM. Tolerating tube feeding. Noted switched tracheostomy to #6 Shiley cuffed fenestrated. Neurologically unchanged 07/23: Afebrile. Positive BM. Tolerating tube feeding. Questionable leak in exchange trach. Place back on a rate/ACV overnight. Insufflated seems to be doing better at the present time. Will check chest x-ray. Possible he might need #6 XLT versus replacement of chronic #8 Shiley. 07/24: Tolerating TP today, RR in low 30s patient appears comfortable. No acute events overnight 07/25: Remains off the ventilator more than 36 hours now. Intermittently tachypneic probably breathing. Chest x-ray was clear yesterday. No acute events reported overnight. PEG not functioning per RN 08/02: Patient was transferred back to critical care service due to continuing ventilator management, tachypnea. Patient clinical status with no significant change. Patient with low-grade fever 100.2, 08/03: Patient seen and examined today. No significant change in clinical status. Patient still with chronic tachypnea. Patient afebrile now. 08/04: Patient seen and examined today. No change in clinical status. Patient still continues to have chronic tachypnea. Patient afebrile. Continue vent weaning 08/05: Patient seen and examined today. Patient had chest tube removed yesterday , chest x-ray shows redevelopment of pneumothorax. Chest tube replaced. Otherwise, patient still on ventilator with tachypnea. Afebrile 08/06: Patient seen and examined today. Patient went to have chest tube placed, repeat chest x-ray did not indicate any pneumothorax. No overnight events. We' ll need to pursue LTAC placement 08/07 No events overnight. On ventilator via trach. Afebrile. 08/08 Patient tolerated CPAP x4 hrs yesterday. Afebrile. On no sedation. 08/09 No events overnight. Tolerated CPAP x 12 hrs yesterday. Afebrile. 08/10 Patient tolerated TP's x 12 hrs yesterday back on ACV overnight. 08/11 No events overnight, currently on TP's with 40% FIO2. Afebrile. 08/12 On CPAP 10/5. Tolerated Tpiece 3 hours earlier today. Afebrile. 08/13 On CPAP 10/5. Not tolerating CPAP as well over last few days and RT notes challenge with suctioning respiratory secretions adequately. Discussing with healthcare proxy regarding exchange trach to 8.0. 08/14 Nursing and RT staff having continued difficulty suctioning respiratory secretions via 6.0 tracheostomy. KAREN Garcia did not consent to stoma dilation and trach upsize yesterday but said she would call back and let me know but no return call. Contacted again today and left a message. Afebrile. On CPAP 10/5. Brow furrowing on exam, appears to be in pain but pain not localizable. Tolerating tube feeds, had BM yesterday 08/15 Not tolerating CPAP today. Contacted healthcare surrogate again and discussed need for trach change. She consented and trach was dilated and up- sized to 8.0 Distal XLT to facilitate pulmonary toilet and to address volume leak. 08/16 No events overnight. Remains on ventilator via trach. Afebrile. Tolerating TF. 08/17 No events overnight. Afebrile. 08/18 Patient tolerated CPAP x 4 hrs yesterday. Afebrile.On ventilator via trach. 08/19 On CPAP 25/06. Temp max 99.3 Subjective: 08/20 Stenotrophomonas in sputum, started on Levaquin per ID. Temp max 99.8. On CPAP 20/09. Tube feeds were held because PEG was clogged but now PEG is functioning. 08/21 No events overnight. Afebrile. Remains on ventilator via trach. Has been tolerating CPAP trials for last 2 days. 08/22 No events overnight. Afebrile , Has been on CPAP all night with PS: 20, PEEP; 5 and FIO2 35%. Objective - Vital Signs Date Time Temp Pulse Resp B/P Pulse Ox O2 Delivery O2 Flow Rate FiO2 08/23/15 06:00 79 08/23/15 05:12 99 35 08/23/15 04:00 97.5 23 99/66 Intake and Output 08/22/15 08/22/15 08/23/15 08:00 16:00 00:00 Intake Total 753 ml 1029 ml 706 ml Output Total 350 ml 650 ml 350 ml Balance 403 ml 379 ml 356 ml Result Diagram: 08/23/15 0332 08/23/15 0332 Other Results Laboratory Tests Test 08/22/15 08/23/15 10:37 03:32 White Blood Count 8.6 TH/MM3 8.3 TH/MM3 Red Blood Count 2.98 MIL/MM3 3.04 MIL/MM3 Hemoglobin 8.3 GM/DL 8.3 GM/DL Hematocrit 26.3 % 27.0 % Mean Corpuscular Volume 88.2 FL 88.8 FL Mean Corpuscular Hemoglobin 27.9 PG 27.3 PG Mean Corpuscular Hemoglobin 31.7 % 30.7 % Concent Red Cell Distribution Width 14.3 % 13.9 % Platelet Count 157 TH/MM3 166 TH/MM3 Mean Platelet Volume 10.7 FL 11.2 FL Neutrophils (%) (Auto) 64.4 % 63.7 % Lymphocytes (%) (Auto) 15.3 % 13.5 % Monocytes (%) (Auto) 8.7 % 9.1 % Eosinophils (%) (Auto) 11.2 % 13.1 % Basophils (%) (Auto) 0.4 % 0.6 % Neutrophils # (Auto) 5.6 TH/MM3 5.3 TH/MM3 Lymphocytes # (Auto) 1.3 TH/MM3 1.1 TH/MM3 Monocytes # (Auto) 0.8 TH/MM3 0.8 TH/MM3 Eosinophils # (Auto) 1.0 TH/MM3 1.1 TH/MM3 Basophils # (Auto) 0.0 TH/MM3 0.0 TH/MM3 CBC Comment DIFF FINAL DIFF FINAL Differential Comment Sodium Level 142 MEQ/L 143 MEQ/L Potassium Level 4.2 MEQ/L 4.3 MEQ/L Chloride Level 100 MEQ/L 99 MEQ/L Carbon Dioxide Level 37.8 MEQ/L 41.0 MEQ/L Anion Gap 4 MEQ/L 3 MEQ/L Blood Urea Nitrogen 15 MG/DL 15 MG/DL Creatinine 0.38 MG/DL 0.37 MG/DL Estimat Glomerular Filtration 240 ML/MIN 247 ML/MIN Rate Random Glucose 121 MG/DL 125 MG/DL Calcium Level 8.9 MG/DL 9.4 MG/DL Imaging Last Impressions Chest X-Ray 08/18/15 0000 Signed Impressions: Service Date/Time: Tuesday, August 18, 2015 09:58 - CONCLUSION: No evidence of pneumonia. There is overlying artifact. Salazar Thurman MD Tunnelled Chest Tube Removal 08/05/15 1100 Signed Impressions: Service Date/Time: Wednesday, August 05, 2015 11:00 - CONCLUSION: Uncomplicated chest tube removal. Blaine Jackson MD Chest Tube Change 07/31/15 0000 Signed Impressions: Service Date/Time: Friday, July 31, 2015 14:34 - CONCLUSION: Uncomplicated reposition of previously placed chest tube as above. Blaine Jackson MD Chest Tube Insertion 07/30/15 0000 Signed Impressions: Service Date/Time: July 14:50 - CONCLUSION: Uncomplicated chest tube placement as above. Blaine Jackson MD Catheter Change 07/27/15 0000 Signed Impressions: Service Date/Time: Monday, July 27, 2015 14:43 - CONCLUSION: Uncomplicated gastrostomy tube exchange as above. Blaine Jackson MD Chest CT 07/11/15 0000 Signed Impressions: Service Date/Time: Saturday, July 11, 2015 09:49 - CONCLUSION: Scattered patchy densities significantly improved from previous study. Tiny anterior right basilar pneumothorax. Right-sided chest tube in good position. Néstor Matamoros MD Head CT 06/18/151902 Signed Impressions: Service Date/Time: June 19:31 - CONCLUSION: Diffuse atrophy unchanged. No acute intracranial findings. Kush Briscoe MD Abdomen/Pelvis CT 06/18/151902 Signed Impressions: Service Date/Time: , June 18, 2015 19:36 - CONCLUSION: 1. Chronic nonspecific urinary bladder wall thickening. Bladder collapsed with Putnam catheter in place. 2. Chronic bilateral mid to lower lung zone groundglass opacity. 3. Nonobstructing left renal calculus. 4. Distended rectum. Kush Briscoe MD Objective Remarks GENERAL: 54-year-old male, cachectic, on CPAP via trach. HEENT: NC/AT. PERRL. MMM dry and pink. NECK: No JVD. 8.0 Distal XLT trach in place with no air leak. CARDIAC: RRR. S1/S2. No S4. No murmurs, clicks gallops or rubs. LUNGS: Tachypneic with bilateral rhonchi but no accessory muscle use. Equal breath sounds bilat, no wheeze. ABDOMEN: S/NT/ND. Bowel sounds present. EXTREMITIES: pulses are equal bilaterally. 1+ pedal edema NEUROLOGY: Patient with significant contractures of the right lower extremity, upper extremities. Eyes open spontaneously. Muscle wasting face, bilateral upper and lower extremities Procedures 07/26- PEG replacement 07/29- right pigtail catheter placement for new pneumothorax 07/29 Date of Insertion: Jul 30, 2015 A/P Assessment and Plan Neuro/Psych: Toxic metabolic Encephalopathy - chronic Parkinson's disease Cognitive disorder/Underlying dementia Depression CT head 06/18/15: - diffuse atrophy unchanged. No acute intracranial findings Continue Sinemet 25/100 q8 via PEG, Seroquel 50 mg twice a day, olanzapine 5 mg a night, Klonopin 2 mg every 8 hours, Paxil 20 daily and Neurontin 300 mg twice a day. 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 Continue Lortab when necessary pain and fentanyl patch 50 g every 3 days for pain management. Fentanyl bolus prn breakthrough pain or if needed for turning/ nursing care/etc. Resp: Acute on chronic respiratory failure Chronic trach, Pneumonia Right pneumothorax status post pigtail catheter (resolved) Continue with vent support keep sat >92%. Will give Diamox 250mg IV x1 Daily CPAP trials with transition to Tpiece as tolerated. Pulmonary Dr. Gaurav corey following. Pulm toilet, trach care. Exchanged to 8 Distal XLT on 08/15 to facilitate suctioning, trach care. Duo nebs every 6 hours when necessary Status post chest tube replacement by interventional radiology on 07/30, chest tube removed 08/04, repeat films do not indicate any pneumothorax Cardiac History of orthostasis History of CAD, HLP, Hypertension Continue Midodrine 5 mg twice a day Monitor HR and BP keep MAP>65mmHg GI: Malnutrition/protein calorie - moderate Status post PEG Hemorrhoids Gastroesophageal reflux disease - Tolerating Jevity 1.5 at 60 cc an hour per nutrition recommendations - Currently Prevacid 30 mg per PEG tube daily for GERD - Current Colace/senna for bowel regimen. FEN/renal: Nonobstructing left renal calculus Hypernatremia - Monitor renal function, I/O's. electrolytes replacement per protocol. -Change Free H20 200ml Q12, ID: Candiduria (heena tropicalis urine cx 08/17) ESBL positive Klebsiella/Pseudomonas pneumonia Stenotrophomonas in sputum 08/17 MRSA colonization sepsis UTI Klebsiella ESBL positive (has been treated) Continue with abx per ID: Diflucan 08/17. Levaquin started 08/20 for Stenotrophomonas. ID following. Completed course of meropenem for 08/11-08/20 for Klebsiella ESBL/pseudomonas pneumonia. On Lactinex tid Urine cx 08/17 - heena tropicalis Blood culture 08/17 negative sputum culture 08/17 - pseudomonas and Stenotrophomonas maltophilia. Urine culture: 08/02 Klebsiella pneumonia ESBL positive Urine culture: 08/02 Heena Tropicalis, C. Glabrata Sputum culture: 08/02 Pseudomonas, Klebsiella pneumonia ESBL positive Blood culture: 08/02 yeast species, Heena glabrata, Heena tropicalis - History of Multidrug resistant UTI- ESBL 02/19/15 , MRSA + 03/20/15 - Heena glabrata in urine 03/19/15 - Rechecked blood, sputum and urine cultures 07/06 no growth - 06/17 - blood cultures 2 - CONS/staph epi - 06/17 - sputum - ESBL positive Klebsiella/Pseudomonas Treated 15 days with tobramycin aerosols twice a day. - 06/17 - urine - C. glabrata/tropicalis - treated with Diflucan Endo: Euglycemic. Not requiring sliding scale Heme Anemia - Monitor CBC MSK Bilateral lower extremity Contractures Stage II sacral decubitus present on admission - Wound care evaluate and treat - Continue physical therapy Prophylaxis - GI - Prevacid - DVT - SCDs/ Lovenox. Check labs today CCT 30 mins Antonio Carr MD Aug 23, 2015 08:38
[2015-08-23] MEDS: RESP: ALBUTEROL 2.5 MG/3 ML NEB (PRN) NEB (08:56)
[2015-08-23] MEDS: FLUCONAZOLE 200 MG PREMIX BAG 100 ML IV SCH (11:11)
[2015-08-23] MEDS: LEVOFLOXACIN 500 MG PREMIX INJ 100 ML IV SCH (11:11)
--- NOTE | 2015-08-23 11:15 | HHI.IDPN ---
Subjective Subjective Remarks ID COVERAGE FOR DR PUENTES Chart reviewed Mr. Foreman is a 54-year-old male with past medical history significant for Parkinson's disease, advanced dementia, hyponatremia, history of ESBL UTI. Admitted with sepsis. Now being treated for tracheobronchitis and C.tropicalis in urine Cath associated. Notes reviewed Temps ok Tolerating CPAP Sputum with PSAE and Sten mal BP ok No diarrhea Antibiotics Levaquin Diflucan Lines Line sites with no e/o infection Past Medical History reviewed Allergies: Coded Allergies: *MDRO Multi-Drug Resistant Organism (Verified Adverse Reaction, Unknown, ) ESBL E. coli (urine) - 02/19/2015; ESBL K. pneumoniae (sputum) - 06/18/15, (urine) - 08/03/15, (sputum) - 08/03/15 MRSA PCR POSITIVE - 03/20/2015 Objective . Vital Signs Date Time Temp Pulse Resp B/P Pulse Ox O2 Delivery O2 Flow Rate FiO2 08/23/15 09:01 96 35 08/23/15 09:00 32 08/23/15 08:00 93 08/23/15 08:00 35 08/23/15 08:00 97.8 93 34 99/62 93 08/23/15 06:00 79 08/23/15 05:12 99 35 08/23/15 04:00 82 08/23/15 04:00 35 08/23/15 04:00 97.5 82 23 99/66 100 08/23/15 02:00 79 08/23/15 00:14 98 35 08/23/15 00:00 97.8 82 21 90/61 100 08/23/15 00:00 35 08/23/15 00:00 82 08/22/15 22:00 75 08/22/15 20:48 97 35 08/22/15 20:00 75 08/22/15 20:00 35 08/22/15 20:00 97.5 75 21 84/58 96 08/22/15 18:00 82 08/22/15 16:00 78 08/22/15 16:00 97.0 78 28 103/67 96 08/22/15 16:00 35 08/22/15 14:34 99 35 08/22/15 14:00 71 7/16/16 12:00 35 08/22/15 12:00 98.3 79 23 89/59 99 08/22/15 12:00 79 08/22/15 11:55 98 35 08/22/15 08/22/15 08/23/15 14:59 22:59 06:59 Intake Total 1029 ml 706 ml 607 ml Output Total 650 ml 350 ml 700 ml Balance 379 ml 356 ml -93 ml IV Total 237 ml 33 ml 44 ml Tube Feeding 672 ml 413 ml 563 ml Tube Irrigant 120 ml 60 ml Other 200 ml Output Urine Total 650 ml 350 ml 700 ml # Bowel Movements 0 1 0 . Laboratory Tests Test 08/22/15 08/23/15 10:37 03:32 White Blood Count 8.6 TH/MM3 8.3 TH/MM3 Red Blood Count 2.98 MIL/MM3 3.04 MIL/MM3 Hemoglobin 8.3 GM/DL 8.3 GM/DL Hematocrit 26.3 % 27.0 % Mean Corpuscular Volume 88.2 FL 88.8 FL Mean Corpuscular Hemoglobin 27.9 PG 27.3 PG Mean Corpuscular Hemoglobin 31.7 % 30.7 % Concent Red Cell Distribution Width 14.3 % 13.9 % Platelet Count 157 TH/MM3 166 TH/MM3 Mean Platelet Volume 10.7 FL 11.2 FL Neutrophils (%) (Auto) 64.4 % 63.7 % Lymphocytes (%) (Auto) 15.3 % 13.5 % Monocytes (%) (Auto) 8.7 % 9.1 % Eosinophils (%) (Auto) 11.2 % 13.1 % Basophils (%) (Auto) 0.4 % 0.6 % Neutrophils # (Auto) 5.6 TH/MM3 5.3 TH/MM3 Lymphocytes # (Auto) 1.3 TH/MM3 1.1 TH/MM3 Monocytes # (Auto) 0.8 TH/MM3 0.8 TH/MM3 Eosinophils # (Auto) 1.0 TH/MM3 1.1 TH/MM3 Basophils # (Auto) 0.0 TH/MM3 0.0 TH/MM3 CBC Comment DIFF FINAL DIFF FINAL Differential Comment Laboratory Tests Test 08/22/15 08/23/15 10:37 03:32 Sodium Level 142 MEQ/L 143 MEQ/L Potassium Level 4.2 MEQ/L 4.3 MEQ/L Chloride Level 100 MEQ/L 99 MEQ/L Carbon Dioxide Level 37.8 MEQ/L 41.0 MEQ/L Anion Gap 4 MEQ/L 3 MEQ/L Blood Urea Nitrogen 15 MG/DL 15 MG/DL Creatinine 0.38 MG/DL 0.37 MG/DL Estimat Glomerular Filtration 240 ML/MIN 247 ML/MIN Rate Random Glucose 121 MG/DL 125 MG/DL Calcium Level 8.9 MG/DL 9.4 MG/DL Imaging Chest X-Ray 08/18/15 0000 Signed Impressions: Service Date/Time: Tuesday, August 18, 2015 09:58 - CONCLUSION: No evidence of pneumonia. There is overlying artifact. Salazar Thurman MD Chest X-Ray 08/16/15 0000 Signed Impressions: Service Date/Time: Sunday, August 16, 2015 15:33 - CONCLUSION: No acute disease. Jeramie Manjarrez MD Tunnelled Chest Tube Removal 08/05/15 1100 Signed Impressions: Service Date/Time: Wednesday, August 05, 2015 11:00 - CONCLUSION: Uncomplicated chest tube removal. Blaine Jackson MD Chest Tube Change 07/31/15 0000 Signed Impressions: Service Date/Time: Friday, July 31, 2015 14:34 - CONCLUSION: Uncomplicated reposition of previously placed chest tube as above. Blaine Jackson MD Chest Tube Insertion 07/30/15 0000 Signed Impressions: Service Date/Time: July 14:50 - CONCLUSION: Uncomplicated chest tube placement as above. Blaine Jackson MD Catheter Change 07/27/15 0000 Signed Impressions: Service Date/Time: Monday, July 27, 2015 14:43 - CONCLUSION: Uncomplicated gastrostomy tube exchange as above. Blaine Jackson MD Chest CT 07/11/15 0000 Signed Impressions: Service Date/Time: Saturday, July 11, 2015 09:49 - CONCLUSION: Scattered patchy densities significantly improved from previous study. Tiny anterior right basilar pneumothorax. Right-sided chest tube in good position. Néstor Matamoros MD Head CT 06/18/151902 Signed Impressions: Service Date/Time: June 19:31 - CONCLUSION: Diffuse atrophy unchanged. No acute intracranial findings. Kush Briscoe MD Abdomen/Pelvis CT 06/18/151902 Signed Impressions: Service Date/Time: June 19:36 - CONCLUSION: 1. Chronic nonspecific urinary bladder wall thickening. Bladder collapsed with Valdez catheter in place. 2. Chronic bilateral mid to lower lung zone groundglass opacity. 3. Nonobstructing left renal calculus. 4. Distended rectum. Kush Briscoe MD Physical Exam GENERAL: eyes open, on the vent SKIN: No generalized rash. Cool and dry. HEENT: Manter conjunctivae, no icterus, moist mucosa NECK: Trach site looks ok. CARDIOVASCULAR: No murmur appreciated. RESPIRATORY: Coarse BS razia, decreased at bases GASTROINTESTINAL: Abdomen soft, non-tender, mildly distended. PEG tube site with no evidence of infection. MUSCULOSKELETAL: Edema in both hands. No pedal edema NEUROLOGICAL: Opens eyes spontaneously, does not follow commands. Peripheral IV line sites with no evidence of infection. ; Valdez in place, urine looks clear Assessment & Plan Remarks New fevers, temps better Acute tracheobronchitis. - Steno malto and PSAE. - Chest x-ray is negative, sputum yellow and thick. Acute on chronic respiratory failure was on trach and had to be placed on ventilator. - S/P upsizing of his trach Acute encephalopathy sepsis but has an underlying diagnosis of advanced dementia as well as advanced Parkinson's disease. Prior history of ESBL UTI - UC now with low colony count yeast and PSAE, valdez changed H/o ESBL organisms. C.tropicalis funguria cath associated. Prior history of MRSA colonization. Status post trach Status post gastrostomy tube with no evidence of infection. Stage II sacral decubitus ulcer present on admission. Recommendations Continue Levaquin IV for PSAE and Steno Malto. Continue Diflucan IV Monitor progress Monitor temps Weaning per [facility] Bhavna Weeks MD Aug 23, 2015 11:15
--- NOTE | 2015-08-23 16:13 | HHI.PR ---
Subjective Remarks 54 YOWM with ChRF,Trach, multiple uti No fever Gets anxious. No Fever Mod amount of trach secretions. Opens eyes, does't follow commands On Cpap 01/10, Fi02 35% Objective Vital Signs Vital Signs Date Time Temp Pulse Resp B/P Pulse Ox O2 Delivery O2 Flow Rate FiO2 08/23/15 15:50 100 35 08/23/15 14:36 98 35 08/23/15 14:00 80 08/23/15 12:00 35 08/23/15 12:00 99.0 81 23 91/63 98 08/23/15 12:00 81 08/23/15 11:55 96 35 08/23/15 10:00 81 08/23/15 09:01 96 35 08/23/15 09:00 32 08/23/15 08:00 93 08/23/15 08:00 35 08/23/15 08:00 97.8 93 34 99/62 93 08/23/15 06:00 79 08/23/15 05:12 99 35 08/23/15 04:00 82 08/23/15 04:00 35 08/23/15 04:00 97.5 82 23 99/66 100 08/23/15 02:00 79 08/23/15 00:14 98 35 08/23/15 00:00 97.8 82 21 90/61 100 08/23/15 00:00 35 08/23/15 00:00 82 08/22/15 22:00 75 08/22/15 20:48 97 35 08/22/15 20:00 75 08/22/15 20:00 35 08/22/15 20:00 97.5 75 21 84/58 96 08/22/15 18:00 82 I/O 08/22/15 08/22/15 08/22/15 08/23/15 08/23/15 08/23/15 07:00 15:00 23:00 07:00 15:00 23:00 Intake Total 753 ml 1029 ml 706 ml 607 ml 1098 ml Output Total 350 ml 650 ml 350 ml 700 ml 1300 ml Balance 403 ml 379 ml 356 ml -93 ml -202 ml IV Total 37 ml 237 ml 33 ml 44 ml 217 ml Tube Feeding 516 ml 672 ml 413 ml 563 ml 561 ml Tube Irrigant 120 ml 60 ml 120 ml Other 200 ml 200 ml 200 ml Output Urine Total 350 ml 650 ml 350 ml 700 ml 1300 ml # Bowel Movements 1 0 1 0 0 Result Diagram: 08/23/1533108/23/15331 Objective Remarks GENERAL: MBMN male on Vent. SKIN: Warm and dry. HEAD: Normocephalic. EYES: No scleral icterus. No injection or drainage. NECK: Supple, trachea midline. No JVD or lymphadenopathy. has trach CARDIOVASCULAR: Regular rate and rhythm without murmurs, gallops, or rubs. RESPIRATORY: Breath sounds equal bilaterally. No accessory muscle use. GASTROINTESTINAL: Abdomen soft, non-tender, nondistended. PEG tube in place MUSCULOSKELETAL: No cyanosis, or edema. BACK: Nontender without obvious deformity. No CVA tenderness. A/P Assessment and Plan VDRF S/P Trach Parkinson's diasease Dementia PLAN: TF Ativan 0.5 mg tid prn Cont CPAP Rest with ACV Dr. Kiser will FU in AM Severiano Ag MD Aug 23, 2015 16:13
[2015-08-23] MEDS: ENOXAPARIN SODIUM 40 MG/0.4 ML SYRINGE SQ SCH (20:42)
[2015-08-23] MEDS: OLANZapine 5 MG TAB GT SCH (20:43)
[2015-08-23 21:01] LABS: MEAN CORPUSCULAR HGB CONC 30.2 % (32.0-36.0)
[2015-08-24] VITALS (18 sets, daily range): BP systolic 90–102; BP diastolic 55–74; PULSE 79–89; RESP 23–29; TEMP 96.7–99.9; O2SAT 95–100
[2015-08-24] MEDS: CHLORHEXIDINE GLUCONATE 2 % 1 PACK (2 CLOTHS) TOP SCH (04:00)
[2015-08-24] MEDS: clonazePAM 1 MG TAB PO SCH ×3 (05:12→22:19)
[2015-08-24] MEDS: CARBIDOPA/LEVODOPA 25 MG/100 MG TAB GT SCH ×3 (05:12→22:19)
[2015-08-24] MEDS: HYOSCYAMINE SOLN 0.125 MG/ML 15 ML BTL PO SCH ×3 (05:12→22:18)
[2015-08-24 05:43] LABS: BASOPHIL # 0.2 TH/MM3 (0-0.2); BASOPHIL % 2.3 % (0.0-2.0); EOSINOPHIL % 13.4 % (0.0-4.0); HEMATOCRIT 29.4 % (39.0-51.0); HEMO FLAGS DIFF FINAL; LYMPH % 9.7 % (9.0-44.0); LYMPHOCYTE # 0.7 TH/MM3 (1.0-4.8); MEAN CELL VOLUME 88.6 FL (80.0-100.0); MEAN CORPUSCULAR HEMOGLOBIN 26.8 PG (27.0-34.0); NEUT % 68.6 % (16.0-70.0); PLATELET COUNT 215 TH/MM3 (150-450); RED BLOOD COUNT 3.32 MIL/MM3 (4.50-5.90); RED CELL DISTRIBUTION WIDTH 14.2 % (11.6-17.2); WHITE BLOOD COUNT 7.3 TH/MM3 (4.0-11.0)
[2015-08-24 05:52] LABS: BICARBONATE 37.8 MEQ/L (21.0-32.0); POTASSIUM 4.3 MEQ/L (3.5-5.1)
--- NOTE | 2015-08-24 07:51 | HHI.CCPN ---
Subjective Remarks/Hospital Course 06/17: Pt is a 54 yr man with multiple medial problems including Parkinson's disease, advanced dementia, hyponatremia, anxiety, pneumonia, GERD, cognitive disorder, and multidrug resistant UTI- ESBL02/19/15 , who resides in a senior care. Pt by report was found by staff in senior care to be less alert and having respiratory difficultly and fevers. Pt was brought to ED adn placed on ventilator. His workup was inclusive of labs, chest xray and ct head and abd/pelvis. WBC 16.4, +UTI, lactic acid 4, troponin ,0.02, BUN/ cre 18/ 0.76. CT head 06/18/15: diffuse atrophy unchanged. No acute intracranial findings ct abd/ pelvis with IV contrast: 06/18/15 Conclusion: 1. Chronic nonspecific urinary bladder wall thickening. Bladder collapsed with Putnam catheter in place. 2.Chronic bilateral mid to lower zone groundglass opacity. 3. Nonobstructing left renal calculus. 4. Distended rectum Pt admitted and fluid and abx ordered. 06/18: Drowsy, easily arousable. On mechanical ventilation via tracheostomy. Tachypneic. Resting tremor noted. 06/19: Drowsy, arousable. On mechanical ventilation via tracheostomy. 06/20: Drowsy, arousable. Remains on mechanical ventilation via tracheostomy. We'll repeat blood cultures, UA and urine cultures. Fluconazole IV added in view of yeast in urine. 07/06: Reconsulted as patient return to the ventilator on a right ventricular due to tachypnea. Low-grade temperatures. Tolerating tube feeding. Extremity encephalopathic demented patient with difficult neurological examination. 07/07: Status post chest tube placement by IR for right pneumothorax 07/06. Afebrile. Tolerating tube feeds. Positive BM. Currently tachypneic on the ventilator. Does not appear to be any acute distress. 07/08: Afebrile. Tolerating tube feeding. He is comfortable currently on CPAP trials 11/10. Positive BM. 07/09: Afebrile. Tolerating tube feeding. Appears comfortable on T bar. Positive BM. 07/10: Afebrile. Eyes are open. Remained on T piece overnight. Tolerating tube feeding. 07/11: MAXIMUM TEMPERATURE 100. Currently 98.6. Eyes are open. On ACV overnight secondary to "tachypnea and sweating". Switching back to PSV trials today. Goal is T piece during daytime, CPAP at night. 07/12: No acute events overnight. On PSV 15/5 -attempt TP up to 6 hours today. No pneumothorax on chest x-ray 07/13: Placed back on full ventilator support for tachypnea. Otherwise clinically unchanged. No fever today 07/14: Patient was on T piece yesterday evening, placed back on PSV overnight, patient mechanical ventilation this morning. Patient appears to be struggling with mechanical ventilation. Patient placed back on PSV with improvement 07/15: Patient placed back on mechanical ventilation last evening due to respiratory rate. It was indicated patient was tachypnea can the 40s. Patient on mechanical ventilation this time with respiration rate mid 20s. Chest tube still in place without any output, chest x-ray still indicating resolution of pneumothorax. 07/16: Patient seen and examined today. Patient placed back on mechanical ventilation overnight due to respiratory rate. Even on mechanical ventilation patient has respiration rate in the 30s. Patient afebrile, blood pressure stable. Continue vent weaning 07/17: Patient seen and examined. Currently afebrile. Currently on CPAP 15/5 @ 40%. Patient is awake with open mouth resting in bed in no apparent acute distress. Tolerating tube feeding. 2 bowel movements. 07/18: No neurological changes. Afebrile. 2 bowel moments. Tolerating tube feeding. We'll attempt TP trials today. On CPAP since 07/15 07/19 No events overnight. On CPAP with PS: 10, PEEP: 5 and FIO2 35%. Afebrile. On no sedation. 07/20 No events overnight. Tolerating CPAP. Afebrile. 07/21: Remains on CPAP. Attempt T piece trial today. Afebrile. One bowel movement. Tolerating tube feeding. 07/22: Afebrile. Positive BM. Tolerating tube feeding. Noted switched tracheostomy to #6 Shiley cuffed fenestrated. Neurologically unchanged 07/23: Afebrile. Positive BM. Tolerating tube feeding. Questionable leak in exchange trach. Place back on a rate/ACV overnight. Insufflated seems to be doing better at the present time. Will check chest x-ray. Possible he might need #6 XLT versus replacement of chronic #8 Shiley. 07/24: Tolerating TP today, RR in low 30s patient appears comfortable. No acute events overnight 07/25: Remains off the ventilator more than 36 hours now. Intermittently tachypneic probably breathing. Chest x-ray was clear yesterday. No acute events reported overnight. PEG not functioning per RN 08/02: Patient was transferred back to critical care service due to continuing ventilator management, tachypnea. Patient clinical status with no significant change. Patient with low-grade fever 100.2, 08/03: Patient seen and examined today. No significant change in clinical status. Patient still with chronic tachypnea. Patient afebrile now. 08/04: Patient seen and examined today. No change in clinical status. Patient still continues to have chronic tachypnea. Patient afebrile. Continue vent weaning 08/05: Patient seen and examined today. Patient had chest tube removed yesterday , chest x-ray shows redevelopment of pneumothorax. Chest tube replaced. Otherwise, patient still on ventilator with tachypnea. Afebrile 08/06: Patient seen and examined today. Patient went to have chest tube placed, repeat chest x-ray did not indicate any pneumothorax. No overnight events. We' ll need to pursue LTAC placement 08/07 No events overnight. On ventilator via trach. Afebrile. 08/08 Patient tolerated CPAP x4 hrs yesterday. Afebrile. On no sedation. 08/09 No events overnight. Tolerated CPAP x 12 hrs yesterday. Afebrile. 08/10 Patient tolerated TP's x 12 hrs yesterday back on ACV overnight. 08/11 No events overnight, currently on TP's with 40% FIO2. Afebrile. 08/12 On CPAP 10/5. Tolerated Tpiece 3 hours earlier today. Afebrile. 08/13 On CPAP 10/5. Not tolerating CPAP as well over last few days and RT notes challenge with suctioning respiratory secretions adequately. Discussing with healthcare proxy regarding exchange trach to 8.0. 08/14 Nursing and RT staff having continued difficulty suctioning respiratory secretions via 6.0 tracheostomy. KAREN Garcia did not consent to stoma dilation and trach upsize yesterday but said she would call back and let me know but no return call. Contacted again today and left a message. Afebrile. On CPAP 10/5. Brow furrowing on exam, appears to be in pain but pain not localizable. Tolerating tube feeds, had BM yesterday 08/15 Not tolerating CPAP today. Contacted healthcare surrogate again and discussed need for trach change. She consented and trach was dilated and up- sized to 8.0 Distal XLT to facilitate pulmonary toilet and to address volume leak. 08/16 No events overnight. Remains on ventilator via trach. Afebrile. Tolerating TF. 08/17 No events overnight. Afebrile. 08/18 Patient tolerated CPAP x 4 hrs yesterday. Afebrile.On ventilator via trach. 08/19 On CPAP 25/06. Temp max 99.3 Subjective: 08/20 Stenotrophomonas in sputum, started on Levaquin per ID. Temp max 99.8. On CPAP 20/09. Tube feeds were held because PEG was clogged but now PEG is functioning. 08/21 No events overnight. Afebrile. Remains on ventilator via trach. Has been tolerating CPAP trials for last 2 days. 08/22 No events overnight. Afebrile , Has been on CPAP all night with PS: 20, PEEP; 5 and FIO2 35%. 08/23 No events overnight. Remains on CPAP, T:99.9 Objective - Vital Signs Date Time Temp Pulse Resp B/P Pulse Ox O2 Delivery O2 Flow Rate FiO2 08/24/15 06:00 89 08/24/15 04:00 35 08/24/15 04:00 99.9 27 102/74 99 Intake and Output 08/23/15 08/23/15 08/24/15 08:00 16:00 00:00 Intake Total 607 ml 1098 ml 718 ml Output Total 700 ml 1300 ml 1100 ml Balance -93 ml -202 ml -382 ml Result Diagram: 08/24/15 0351 08/24/15 0351 Other Results Laboratory Tests Test 08/24/15 03:51 White Blood Count 7.3 TH/MM3 Red Blood Count 3.32 MIL/MM3 Hemoglobin 8.9 GM/DL Hematocrit 29.4 % Mean Corpuscular Volume 88.6 FL Mean Corpuscular Hemoglobin 26.8 PG Mean Corpuscular Hemoglobin 30.2 % Concent Red Cell Distribution Width 14.2 % Platelet Count 215 TH/MM3 Mean Platelet Volume 10.6 FL Neutrophils (%) (Auto) 68.6 % Lymphocytes (%) (Auto) 9.7 % Monocytes (%) (Auto) 6.0 % Eosinophils (%) (Auto) 13.4 % Basophils (%) (Auto) 2.3 % Neutrophils # (Auto) 5.0 TH/MM3 Lymphocytes # (Auto) 0.7 TH/MM3 Monocytes # (Auto) 0.4 TH/MM3 Eosinophils # (Auto) 1.0 TH/MM3 Basophils # (Auto) 0.2 TH/MM3 CBC Comment DIFF FINAL Differential Comment Sodium Level 140 MEQ/L Potassium Level 4.3 MEQ/L Chloride Level 100 MEQ/L Carbon Dioxide Level 37.8 MEQ/L Anion Gap 2 MEQ/L Blood Urea Nitrogen 15 MG/DL Creatinine 0.37 MG/DL Estimat Glomerular Filtration 247 ML/MIN Rate Random Glucose 126 MG/DL Calcium Level 9.2 MG/DL Imaging Last Impressions Chest X-Ray 08/18/15 0000 Signed Impressions: Service Date/Time: Tuesday, August 18, 2015 09:58 - CONCLUSION: No evidence of pneumonia. There is overlying artifact. Salazar Thurman MD Tunnelled Chest Tube Removal 08/05/15 1100 Signed Impressions: Service Date/Time: Wednesday, August 05, 2015 11:00 - CONCLUSION: Uncomplicated chest tube removal. Blaine Jackson MD Chest Tube Change 07/31/15 0000 Signed Impressions: Service Date/Time: Friday, July 31, 2015 14:34 - CONCLUSION: Uncomplicated reposition of previously placed chest tube as above. Blaine Jackson MD Chest Tube Insertion 07/30/15 0000 Signed Impressions: Service Date/Time: July 14:50 - CONCLUSION: Uncomplicated chest tube placement as above. Blaine Jackson MD Catheter Change 07/27/15 0000 Signed Impressions: Service Date/Time: Monday, July 27, 2015 14:43 - CONCLUSION: Uncomplicated gastrostomy tube exchange as above. Blaine Jackson MD Chest CT 07/11/15 0000 Signed Impressions: Service Date/Time: Saturday, July 11, 2015 09:49 - CONCLUSION: Scattered patchy densities significantly improved from previous study. Tiny anterior right basilar pneumothorax. Right-sided chest tube in good position. Néstor Matamoros MD Head CT [id number] Signed Impressions: Service Date/Time: June 19:31 - CONCLUSION: Diffuse atrophy unchanged. No acute intracranial findings. Kush Briscoe MD Abdomen/Pelvis CT [id number]/[id number] Signed Impressions: Service Date/Time: June 19:36 - CONCLUSION: 1. Chronic nonspecific urinary bladder wall thickening. Bladder collapsed with Putnam catheter in place. 2. Chronic bilateral mid to lower lung zone groundglass opacity. 3. Nonobstructing left renal calculus. 4. Distended rectum. Kush Briscoe MD Objective Remarks GENERAL: 54-year-old male, cachectic, on CPAP via trach. HEENT: NC/AT. PERRL. MMM dry and pink. NECK: No JVD. 8.0 Distal XLT trach in place with no air leak. CARDIAC: RRR. S1/S2. No S4. No murmurs, clicks gallops or rubs. LUNGS: Tachypneic with bilateral rhonchi but no accessory muscle use. Equal breath sounds bilat, no wheeze. ABDOMEN: S/NT/ND. Bowel sounds present. EXTREMITIES: pulses are equal bilaterally. 1+ pedal edema NEUROLOGY: Patient with significant contractures of the right lower extremity, upper extremities. Eyes open spontaneously. Muscle wasting face, bilateral upper and lower extremities Procedures 07/26- PEG replacement 07/29- right pigtail catheter placement for new pneumothorax 07/29 Date of Insertion: Jul 30, 2015 A/P Assessment and Plan Neuro/Psych: Toxic metabolic Encephalopathy - chronic Parkinson's disease Cognitive disorder/Underlying dementia Depression CT head 06/18/15: - diffuse atrophy unchanged. No acute intracranial findings Continue Sinemet 25/100 q8 via PEG, Seroquel 50 mg twice a day, olanzapine 5 mg a night, Klonopin 2 mg every 8 hours, Paxil 20 daily and Neurontin 300 mg twice a day. 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 Continue Lortab when necessary pain and fentanyl patch 50 g every 3 days for pain management. Fentanyl bolus prn breakthrough pain or if needed for turning/ nursing care/etc. Resp: Acute on chronic respiratory failure Chronic trach, Pneumonia Right pneumothorax status post pigtail catheter (resolved) Continue with vent support keep sat >92%. Daily CPAP trials with transition to Tpiece as tolerated. Pulmonary Dr. Gaurav corey following. Pulm toilet, trach care. Exchanged to 8 Distal XLT on 08/15 to facilitate suctioning, trach care. Duo nebs every 6 hours when necessary Status post chest tube replacement by interventional radiology on 07/30, chest tube removed 08/04, repeat films do not indicate any pneumothorax Cardiac History of orthostasis History of CAD, HLP, Hypertension Continue Midodrine 5 mg twice a day Monitor HR and BP keep MAP>65mmHg GI: Malnutrition/protein calorie - moderate Status post PEG Hemorrhoids Gastroesophageal reflux disease - Tolerating Jevity 1.5 at 60 cc an hour per nutrition recommendations - Currently Prevacid 30 mg per PEG tube daily for GERD - Current Colace/senna for bowel regimen. FEN/renal: Nonobstructing left renal calculus Hypernatremia - Monitor renal function, I/O's. electrolytes replacement per protocol. -d/c Free H20 ID: Candiduria (heena tropicalis urine cx 08/17) ESBL positive Klebsiella/Pseudomonas pneumonia Stenotrophomonas in sputum 08/17 MRSA colonization sepsis UTI Klebsiella ESBL positive (has been treated) Continue with abx per ID: Diflucan 08/17. Levaquin started 08/20 for Stenotrophomonas. ID following. Completed course of meropenem for 08/11-08/20 for Klebsiella ESBL/pseudomonas pneumonia. On Lactinex tid Urine cx 08/17 - heena tropicalis Blood culture 08/17 negative sputum culture 08/17 - pseudomonas and Stenotrophomonas maltophilia. Urine culture: 08/02 Klebsiella pneumonia ESBL positive Urine culture: 08/02 Heena Tropicalis, C. Glabrata Sputum culture: 08/02 Pseudomonas, Klebsiella pneumonia ESBL positive Blood culture: 08/02 yeast species, Heena glabrata, Heena tropicalis - History of Multidrug resistant UTI- ESBL 02/19/15 , MRSA + 03/20/15 - Heena glabrata in urine 03/19/15 - Rechecked blood, sputum and urine cultures 07/06 no growth - 06/17 - blood cultures 2 - CONS/staph epi - 06/17 - sputum - ESBL positive Klebsiella/Pseudomonas Treated 15 days with tobramycin aerosols twice a day. - 06/17 - urine - C. glabrata/tropicalis - treated with Diflucan Endo: Euglycemic. Not requiring sliding scale Heme Anemia - Monitor CBC MSK Bilateral lower extremity Contractures Stage II sacral decubitus present on admission - Wound care evaluate and treat - Continue physical therapy Prophylaxis - GI - Prevacid - DVT - SCDs/ Lovenox. mortgage manager eval for LTAC placement CCT 30 mins Antonio Carr MD Aug 24, 2015 07:51
[2015-08-24] MEDS: LACTOBACILLUS ACIDOPHILUS TAB PO SCH ×3 (09:09→18:04)
[2015-08-24] MEDS: MIDODRINE 5 MG TAB G-TUBE SCH ×2 (09:09→20:49)
[2015-08-24] MEDS: COLLAGENASE OINT 30 GM TUBE TOP SCH (09:09)
[2015-08-24] MEDS: SODIUM CHLORIDE 0.9% FLUSH 5 ML FLUSH IVF SCH ×2 (09:09→20:50)
[2015-08-24] MEDS: ARTIFICIAL TEARS OPTH SOLN 15 ML BTL EACH EYE SCH ×3 (09:09→18:04)
[2015-08-24] MEDS: GABAPENTIN 300 MG CAP G-TUBE SCH ×2 (09:10→20:49)
[2015-08-24] MEDS: SENNOSIDES SYRUP 8.8 MG/5 ML CUP PO SCH (09:10)
[2015-08-24] MEDS: QUEtiapine FUMARATE 25 MG TAB G-TUBE SCH ×2 (09:10→20:50)
[2015-08-24] MEDS: LANSOPRAZOLE SOLUTAB 30 MG TAB NG SCH (09:10)
[2015-08-24] MEDS: PARoxetine HCL 20 MG TAB G-TUBE SCH (09:10)
[2015-08-24] MEDS: CHLORHEXIDINE 0.12% (ORAL KIT) 15 ML CUP MT SCH ×2 (09:10→20:50)
[2015-08-24] MEDS: LEVOFLOXACIN 500 MG PREMIX INJ 100 ML IV SCH (13:26)
[2015-08-24] MEDS: FLUCONAZOLE 200 MG PREMIX BAG 100 ML IV SCH (13:26)
--- NOTE | 2015-08-24 18:24 | HHI.PR ---
Subjective Remarks On CPAP /PSV 5/20, Fio2 35%,and tachypneic .Tolerated CPAP all day and nite. Remains Lethargic. On tube feeds. Objective Vital Signs Date Time Temp Pulse Resp B/P Pulse Ox O2 Delivery O2 Flow Rate FiO2 08/24/15 17:28 97 35 08/24/15 16:00 88 08/24/15 16:00 97.8 88 27 93/59 96 08/24/15 16:00 35 08/24/15 14:00 86 08/24/15 12:00 97.5 86 29 93/63 95 08/24/15 12:00 86 08/24/15 12:00 35 08/24/15 11:33 100 35 08/24/15 10:00 86 08/24/15 08:00 86 08/24/15 08:00 35 08/24/15 08:00 97.9 86 25 90/60 98 08/24/15 07:52 35 08/24/15 07:49 98 35 08/24/15 06:00 89 08/24/15 04:00 88 08/24/15 04:00 35 08/24/15 04:00 99.9 88 27 102/74 99 08/24/15 03:56 98 35 08/24/15 02:00 86 08/24/15 01:03 97 35 08/24/15 00:00 35 08/24/15 00:00 99.0 83 26 100/66 96 08/24/15 00:00 83 08/23/15 22:00 83 08/23/15 21:04 98 35 08/23/15 20:00 83 08/23/15 20:00 35 08/23/15 20:00 97.6 83 26 100/65 100 I/O 08/23/1508/22/16 08/22/08/23/08/24/15 08/24/15 07:00 15:00 23:00 07:00 15:00 23:00 Intake Total 607 ml 1098 ml 718 ml 610 ml 1059 ml Output Total 700 ml 1300 ml 1100 ml 1200 ml 600 ml Balance -93 ml -202 ml -382 ml -590 ml 459 ml IV Total 44 ml 217 ml 20 ml 41 ml 229 ml Tube Feeding 563 ml 561 ml 498 ml 509 ml 710 ml Tube Irrigant 120 ml 60 ml Other 200 ml 200 ml 120 ml Output Urine Total 700 ml 1300 ml 1100 ml 1200 ml 600 ml # Bowel Movements 0 0 1 1 1 Result Diagram: 08/24/15 03508/24/15 035 Objective Remarks This is a thin white male who in on the vent, with a trach tube in place. HEENT: Pupils are equal and reactive to light.Throat dry. CHEST: Bilateral wheeze with basal crackles. Decreased breath sounds . CARDIOVASCULAR: S1 and S2 is normal. ABDOMEN: Soft, nondistended. He has a PEG tube in place. EXTREMITIES: No edema.muscle wasting. NEURO: Lethargic and Does not move his extremities .Reflexes not elicited. Assessment and Plan Assessment and Plan IMPRESSION 1. Respiratory failure, ventilator dependent 2. Sepsis, resolving. 3. UTI 4. Tracheobronchitis 5. Parkinson's disease 6. Dementia. 7. Severe Deconditioning. 8. Left Pneumothorax. Resolved. Plan : 1. CPAP/PSV 5/20, FIO2 35 % 2. Nebs qid , duoneb. 3. Antibiotics per ID. 4. T Bar 40 % for 3 hrs if tolerating. 5. Levsin .125 mg tid via peg. 6. Ativan .5 mg q6h prn. 7. Cont Tube feeds at 60 CC 8. Lovenox 40 Mg S/Q daily. Darren Kiser MD Aug 24, 2015 18:24
[2015-08-24] MEDS: OLANZapine 5 MG TAB GT SCH (20:49)
[2015-08-24 21:01] LABS: MEAN CORPUSCULAR HGB CONC 30.8 % (32.0-36.0)
[2015-08-24] MEDS: ENOXAPARIN SODIUM 40 MG/0.4 ML SYRINGE SQ SCH (22:19)
[2015-08-25] VITALS (18 sets, daily range): BP systolic 81–103; BP diastolic 55–64; PULSE 69–93; RESP 18–30; TEMP 97–98.7; O2SAT 96–100
--- NOTE | 2015-08-25 03:36 | RADRPT ---
EXAM DATE/TIME: 08/25/2015 02:35 [facility] COMPARISON: CHEST SINGLE AP, August 18, 2015, 9:58. INDICATIONS : Short of breath. MEDICAL HISTORY : Hypertension. Gastroesophageal reflux disease. Diabetes mellitus type II. SURGICAL HISTORY : Tracheostomy. ENCOUNTER: Subsequent ACUITY: 1 week PAIN SCORE: Non-responsive. LOCATION: Bilateral chest FINDINGS: Stable hyperaeration. Tracheostomy tube noted. The lungs are grossly clear. Heart size normal. Gastro stomy tube left upper quadrant. CONCLUSION: No significant change has occurred. Jeramie Manjarrez MD on August 25, 2015 at 3:34 Board Certified Radiologist. This report was verified electronically.
[2015-08-25] MEDS: CHLORHEXIDINE GLUCONATE 2 % 1 PACK (2 CLOTHS) TOP SCH ×2 (04:00→21:14)
[2015-08-25 04:47] LABS: BASOPHIL % 0.5 % (0.0-2.0); EOSINOPHIL # 1.1 TH/MM3 (0-0.4); EOSINOPHIL % 14.6 % (0.0-4.0); HEMATOCRIT 29.2 % (39.0-51.0); HEMO FLAGS DIFF FINAL; LYMPH % 14.3 % (9.0-44.0); LYMPHOCYTE # 1.1 TH/MM3 (1.0-4.8); MEAN CELL VOLUME 87.9 FL (80.0-100.0); MONO % 6.9 % (0.0-8.0); NEUT % 63.7 % (16.0-70.0); PLATELET COUNT 196 TH/MM3 (150-450); RED BLOOD COUNT 3.32 MIL/MM3 (4.50-5.90); RED CELL DISTRIBUTION WIDTH 14.2 % (11.6-17.2); WHITE BLOOD COUNT 7.9 TH/MM3 (4.0-11.0)
[2015-08-25 05:08] LABS: BICARBONATE 37.7 MEQ/L (21.0-32.0); POTASSIUM 4.5 MEQ/L (3.5-5.1)
[2015-08-25] MEDS: CARBIDOPA/LEVODOPA 25 MG/100 MG TAB GT SCH ×3 (06:45→21:04)
[2015-08-25] MEDS: HYOSCYAMINE SOLN 0.125 MG/ML 15 ML BTL PO SCH ×3 (06:45→21:04)
[2015-08-25] MEDS: clonazePAM 1 MG TAB PO SCH ×3 (06:45→21:03)
--- NOTE | 2015-08-25 07:22 | HHI.CCPN ---
Subjective Remarks/Hospital Course 06/17: Pt is a 54 yr man with multiple medial problems including Parkinson's disease, advanced dementia, hyponatremia, anxiety, pneumonia, GERD, cognitive disorder, and multidrug resistant UTI- ESBL02/19/15 , who resides in a alf. Pt by report was found by staff in alf to be less alert and having respiratory difficultly and fevers. Pt was brought to ED adn placed on ventilator. His workup was inclusive of labs, chest xray and ct head and abd/pelvis. WBC 16.4, +UTI, lactic acid 4, troponin ,0.02, BUN/ cre 18/ 0.76. CT head 06/18/15: diffuse atrophy unchanged. No acute intracranial findings ct abd/ pelvis with IV contrast: 06/18/15 Conclusion: 1. Chronic nonspecific urinary bladder wall thickening. Bladder collapsed with Putnam catheter in place. 2.Chronic bilateral mid to lower zone groundglass opacity. 3. Nonobstructing left renal calculus. 4. Distended rectum Pt admitted and fluid and abx ordered. 06/18: Drowsy, easily arousable. On mechanical ventilation via tracheostomy. Tachypneic. Resting tremor noted. 06/19: Drowsy, arousable. On mechanical ventilation via tracheostomy. 06/20: Drowsy, arousable. Remains on mechanical ventilation via tracheostomy. We'll repeat blood cultures, UA and urine cultures. Fluconazole IV added in view of yeast in urine. 07/06: Reconsulted as patient return to the ventilator on a right ventricular due to tachypnea. Low-grade temperatures. Tolerating tube feeding. Extremity encephalopathic demented patient with difficult neurological examination. 07/07: Status post chest tube placement by IR for right pneumothorax 07/06. Afebrile. Tolerating tube feeds. Positive BM. Currently tachypneic on the ventilator. Does not appear to be any acute distress. 07/08: Afebrile. Tolerating tube feeding. He is comfortable currently on CPAP trials 11/10. Positive BM. 07/09: Afebrile. Tolerating tube feeding. Appears comfortable on T bar. Positive BM. 07/10: Afebrile. Eyes are open. Remained on T piece overnight. Tolerating tube feeding. 07/11: MAXIMUM TEMPERATURE 100. Currently 98.6. Eyes are open. On ACV overnight secondary to "tachypnea and sweating". Switching back to PSV trials today. Goal is T piece during daytime, CPAP at night. 07/12: No acute events overnight. On PSV 15/5 -attempt TP up to 6 hours today. No pneumothorax on chest x-ray 07/13: Placed back on full ventilator support for tachypnea. Otherwise clinically unchanged. No fever today 07/14: Patient was on T piece yesterday evening, placed back on PSV overnight, patient mechanical ventilation this morning. Patient appears to be struggling with mechanical ventilation. Patient placed back on PSV with improvement 07/15: Patient placed back on mechanical ventilation last evening due to respiratory rate. It was indicated patient was tachypnea can the 40s. Patient on mechanical ventilation this time with respiration rate mid 20s. Chest tube still in place without any output, chest x-ray still indicating resolution of pneumothorax. 07/16: Patient seen and examined today. Patient placed back on mechanical ventilation overnight due to respiratory rate. Even on mechanical ventilation patient has respiration rate in the 30s. Patient afebrile, blood pressure stable. Continue vent weaning 07/17: Patient seen and examined. Currently afebrile. Currently on CPAP 15/5 @ 40%. Patient is awake with open mouth resting in bed in no apparent acute distress. Tolerating tube feeding. 2 bowel movements. 07/18: No neurological changes. Afebrile. 2 bowel moments. Tolerating tube feeding. We'll attempt TP trials today. On CPAP since 07/15 07/19 No events overnight. On CPAP with PS: 10, PEEP: 5 and FIO2 35%. Afebrile. On no sedation. 07/20 No events overnight. Tolerating CPAP. Afebrile. 07/21: Remains on CPAP. Attempt T piece trial today. Afebrile. One bowel movement. Tolerating tube feeding. 07/22: Afebrile. Positive BM. Tolerating tube feeding. Noted switched tracheostomy to #6 Shiley cuffed fenestrated. Neurologically unchanged 07/23: Afebrile. Positive BM. Tolerating tube feeding. Questionable leak in exchange trach. Place back on a rate/ACV overnight. Insufflated seems to be doing better at the present time. Will check chest x-ray. Possible he might need #6 XLT versus replacement of chronic #8 Shiley. 07/24: Tolerating TP today, RR in low 30s patient appears comfortable. No acute events overnight 07/25: Remains off the ventilator more than 36 hours now. Intermittently tachypneic probably breathing. Chest x-ray was clear yesterday. No acute events reported overnight. PEG not functioning per RN 08/02: Patient was transferred back to critical care service due to continuing ventilator management, tachypnea. Patient clinical status with no significant change. Patient with low-grade fever 100.2, 08/03: Patient seen and examined today. No significant change in clinical status. Patient still with chronic tachypnea. Patient afebrile now. 08/04: Patient seen and examined today. No change in clinical status. Patient still continues to have chronic tachypnea. Patient afebrile. Continue vent weaning 08/05: Patient seen and examined today. Patient had chest tube removed yesterday , chest x-ray shows redevelopment of pneumothorax. Chest tube replaced. Otherwise, patient still on ventilator with tachypnea. Afebrile 08/06: Patient seen and examined today. Patient went to have chest tube placed, repeat chest x-ray did not indicate any pneumothorax. No overnight events. We' ll need to pursue LTAC placement 08/07 No events overnight. On ventilator via trach. Afebrile. 08/08 Patient tolerated CPAP x4 hrs yesterday. Afebrile. On no sedation. 08/09 No events overnight. Tolerated CPAP x 12 hrs yesterday. Afebrile. 08/10 Patient tolerated TP's x 12 hrs yesterday back on ACV overnight. 08/11 No events overnight, currently on TP's with 40% FIO2. Afebrile. 08/12 On CPAP 10/5. Tolerated Tpiece 3 hours earlier today. Afebrile. 08/13 On CPAP 10/5. Not tolerating CPAP as well over last few days and RT notes challenge with suctioning respiratory secretions adequately. Discussing with healthcare proxy regarding exchange trach to 8.0. 08/14 Nursing and RT staff having continued difficulty suctioning respiratory secretions via 6.0 tracheostomy. KAREN Garcia did not consent to stoma dilation and trach upsize yesterday but said she would call back and let me know but no return call. Contacted again today and left a message. Afebrile. On CPAP 10/5. Brow furrowing on exam, appears to be in pain but pain not localizable. Tolerating tube feeds, had BM yesterday 08/15 Not tolerating CPAP today. Contacted healthcare surrogate again and discussed need for trach change. She consented and trach was dilated and up- sized to 8.0 Distal XLT to facilitate pulmonary toilet and to address volume leak. 08/16 No events overnight. Remains on ventilator via trach. Afebrile. Tolerating TF. 08/17 No events overnight. Afebrile. 08/18 Patient tolerated CPAP x 4 hrs yesterday. Afebrile.On ventilator via trach. 08/19 On CPAP 25/06. Temp max 99.3 Subjective: 08/20 Stenotrophomonas in sputum, started on Levaquin per ID. Temp max 99.8. On CPAP 20/09. Tube feeds were held because PEG was clogged but now PEG is functioning. 08/21 No events overnight. Afebrile. Remains on ventilator via trach. Has been tolerating CPAP trials for last 2 days. 08/22 No events overnight. Afebrile , Has been on CPAP all night with PS: 20, PEEP; 5 and FIO2 35%. 08/23 No events overnight. Remains on CPAP, T:99.9 08/24 No events overnight. On CPAP PS 10, PEEP; 5 and FIO2 35% overnight. Afebrile. Objective - Vital Signs Date Time Temp Pulse Resp B/P Pulse Ox O2 Delivery O2 Flow Rate FiO2 08/25/15 06:00 84 08/25/15 04:00 98.0 26 103/62 97 08/25/15 04:00 35 Intake and Output 08/24/15 08/24/15 08/25/15 08:00 16:00 00:00 Intake Total 610 ml 1059 ml 464 ml Output Total 1200 ml 600 ml 750 ml Balance -590 ml 459 ml -286 ml Result Diagram: 08/25/15 0359 08/25/15 0359 Other Results Laboratory Tests Test 08/25/15 03:59 White Blood Count 7.9 TH/MM3 Red Blood Count 3.32 MIL/MM3 Hemoglobin 9.0 GM/DL Hematocrit 29.2 % Mean Corpuscular Volume 87.9 FL Mean Corpuscular Hemoglobin 27.0 PG Mean Corpuscular Hemoglobin 30.8 % Concent Red Cell Distribution Width 14.2 % Platelet Count 196 TH/MM3 Mean Platelet Volume 10.7 FL Neutrophils (%) (Auto) 63.7 % Lymphocytes (%) (Auto) 14.3 % Monocytes (%) (Auto) 6.9 % Eosinophils (%) (Auto) 14.6 % Basophils (%) (Auto) 0.5 % Neutrophils # (Auto) 5.0 TH/MM3 Lymphocytes # (Auto) 1.1 TH/MM3 Monocytes # (Auto) 0.5 TH/MM3 Eosinophils # (Auto) 1.1 TH/MM3 Basophils # (Auto) 0.0 TH/MM3 CBC Comment DIFF FINAL Differential Comment Sodium Level 141 MEQ/L Potassium Level 4.5 MEQ/L Chloride Level 101 MEQ/L Carbon Dioxide Level 37.7 MEQ/L Anion Gap 2 MEQ/L Blood Urea Nitrogen 15 MG/DL Creatinine 0.38 MG/DL Estimat Glomerular Filtration 240 ML/MIN Rate Random Glucose 90 MG/DL Calcium Level 9.8 MG/DL Imaging Last Impressions Chest X-Ray 08/25/15 0600 Signed Impressions: Service Date/Time: Tuesday, August 25, 2015 02:35 - CONCLUSION: No significant change has occurred. Jeramie Manjarrez MD Tunnelled Chest Tube Removal 08/05/15 1100 Signed Impressions: Service Date/Time: Wednesday, August 05, 2015 11:00 - CONCLUSION: Uncomplicated chest tube removal. Blaine Jackson MD Chest Tube Change 07/31/15 0000 Signed Impressions: Service Date/Time: Friday, July 31, 2015 14:34 - CONCLUSION: Uncomplicated reposition of previously placed chest tube as above. Blaine Jackson MD Chest Tube Insertion 07/30/15 0000 Signed Impressions: Service Date/Time: July 14:50 - CONCLUSION: Uncomplicated chest tube placement as above. Blaine Jackson MD Catheter Change 07/27/15 0000 Signed Impressions: Service Date/Time: Monday, July 27, 2015 14:43 - CONCLUSION: Uncomplicated gastrostomy tube exchange as above. Blaine Jackson MD Chest CT 07/11/15 0000 Signed Impressions: Service Date/Time: Saturday, July 11, 2015 09:49 - CONCLUSION: Scattered patchy densities significantly improved from previous study. Tiny anterior right basilar pneumothorax. Right-sided chest tube in good position. Néstor F. Tocci, MD Head CT 06/18/151902 Signed Impressions: Service Date/Time: June 19:31 - CONCLUSION: Diffuse atrophy unchanged. No acute intracranial findings. Kush Briscoe MD Abdomen/Pelvis CT 06/18/151902 Signed Impressions: Service Date/Time: , June 18, 2015 19:36 - CONCLUSION: 1. Chronic nonspecific urinary bladder wall thickening. Bladder collapsed with Putnam catheter in place. 2. Chronic bilateral mid to lower lung zone groundglass opacity. 3. Nonobstructing left renal calculus. 4. Distended rectum. Kush Briscoe MD Objective Remarks GENERAL: 54-year-old male, cachectic, on CPAP via trach. HEENT: NC/AT. PERRL. MMM dry and pink. NECK: No JVD. 8.0 Distal XLT trach in place with no air leak. CARDIAC: RRR. S1/S2. No S4. No murmurs, clicks gallops or rubs. LUNGS: Tachypneic with bilateral rhonchi but no accessory muscle use. Equal breath sounds bilat, no wheeze. ABDOMEN: S/NT/ND. Bowel sounds present. EXTREMITIES: pulses are equal bilaterally. 1+ pedal edema NEUROLOGY: Patient with significant contractures of the right lower extremity, upper extremities. Eyes open spontaneously. Muscle wasting face, bilateral upper and lower extremities Procedures 07/26- PEG replacement 07/29- right pigtail catheter placement for new pneumothorax 07/29 Date of Insertion: Jul 30, 2015 A/P Assessment and Plan Neuro/Psych: Toxic metabolic Encephalopathy - chronic Parkinson's disease Cognitive disorder/Underlying dementia Depression CT head 06/18/15: - diffuse atrophy unchanged. No acute intracranial findings Continue Sinemet 25/100 q8 via PEG, Seroquel 50 mg twice a day, olanzapine 5 mg a night, Klonopin 2 mg every 8 hours, Paxil 20 daily and Neurontin 300 mg twice a day. These are [facility] meds, dose of antipsychotics have been titrated up slightly since admit. Continue Lortab when necessary pain and fentanyl patch 50 g every 3 days for pain management. Fentanyl bolus prn breakthrough pain or if needed for turning/ nursing care/etc. Resp: Acute on chronic respiratory failure Chronic trach, Pneumonia Right pneumothorax status post pigtail catheter (resolved) Continue with vent support keep sat >92%. Daily CPAP trials with transition to Tpiece as tolerated. Pulmonary Dr. Gaurav corey following. Pulm toilet, trach care. Exchanged to 8 Distal XLT on 08/15 to facilitate suctioning, trach care. Duo nebs every 6 hours when necessary Status post chest tube replacement by interventional radiology on 07/30, chest tube removed 08/04, repeat films do not indicate any pneumothorax CXR from today - no significant changes compared to prior study. Trach in place. Cardiac History of orthostasis History of CAD, HLP, Hypertension Continue Midodrine 5 mg twice a day Monitor HR and BP keep MAP>65mmHg GI: Malnutrition/protein calorie - moderate Status post PEG Hemorrhoids Gastroesophageal reflux disease - Tolerating Jevity 1.5 at 60 cc an hour per nutrition recommendations - Currently Prevacid 30 mg per PEG tube daily for GERD - Current Colace/senna for bowel regimen. FEN/renal: Nonobstructing left renal calculus Hypernatremia - Monitor renal function, I/O's. electrolytes replacement per protocol. ID: Candiduria (heena tropicalis urine cx 08/17) ESBL positive Klebsiella/Pseudomonas pneumonia Stenotrophomonas in sputum 08/17 MRSA colonization sepsis UTI Klebsiella ESBL positive (has been treated) Continue with abx per ID: Diflucan 08/17. Levaquin started 08/20 for Stenotrophomonas. ID following. Completed course of meropenem for 08/11-08/20 for Klebsiella ESBL/pseudomonas pneumonia. On Lactinex tid Urine cx 08/17 - heena tropicalis Blood culture 08/17 negative sputum culture 08/17 - pseudomonas and Stenotrophomonas maltophilia. Urine culture: 08/02 Klebsiella pneumonia ESBL positive Urine culture: 08/02 Heena Tropicalis, C. Glabrata Sputum culture: 08/02 Pseudomonas, Klebsiella pneumonia ESBL positive Blood culture: 08/02 yeast species, Heena glabrata, Heena tropicalis - History of Multidrug resistant UTI- ESBL 02/19/15 , MRSA + 03/20/15 - Heena glabrata in urine 03/19/15 - Rechecked blood, sputum and urine cultures 07/06 no growth - 06/17 - blood cultures 2 - CONS/staph epi - 06/17 - sputum - ESBL positive Klebsiella/Pseudomonas Treated 15 days with tobramycin aerosols twice a day. - 06/17 - urine - C. glabrata/tropicalis - treated with Diflucan Endo: Euglycemic. Not requiring sliding scale Heme Anemia - Monitor CBC MSK Bilateral lower extremity Contractures Stage II sacral decubitus present on admission - Wound care evaluate and treat - Continue physical therapy Prophylaxis - GI - Prevacid - DVT - SCDs/ Lovenox. process safety manager eval for LTAC placement CCT 30 mins Antonio Carr MD Aug 25, 2015 07:22
[2015-08-25] MEDS: REMOVE OLD PATCH TD SCH (08:00)
[2015-08-25] MEDS: CHLORHEXIDINE 0.12% (ORAL KIT) 15 ML CUP MT SCH ×2 (08:59→21:03)
[2015-08-25] MEDS: ARTIFICIAL TEARS OPTH SOLN 15 ML BTL EACH EYE SCH ×3 (08:59→17:25)
[2015-08-25] MEDS: SODIUM CHLORIDE 0.9% FLUSH 5 ML FLUSH IVF SCH ×2 (08:59→21:00)
[2015-08-25] MEDS: LACTOBACILLUS ACIDOPHILUS TAB PO SCH ×3 (09:00→17:25)
[2015-08-25] MEDS: GABAPENTIN 300 MG CAP G-TUBE SCH ×2 (09:00→21:03)
[2015-08-25] MEDS: SENNOSIDES SYRUP 8.8 MG/5 ML CUP PO SCH (09:00)
[2015-08-25] MEDS: PARoxetine HCL 20 MG TAB G-TUBE SCH (09:00)
[2015-08-25] MEDS: MIDODRINE 5 MG TAB G-TUBE SCH ×2 (09:00→21:03)
[2015-08-25] MEDS: COLLAGENASE OINT 30 GM TUBE TOP SCH (09:00)
[2015-08-25] MEDS: QUEtiapine FUMARATE 25 MG TAB G-TUBE SCH ×2 (09:00→21:03)
[2015-08-25] MEDS: LANSOPRAZOLE SOLUTAB 30 MG TAB NG SCH (09:00)
[2015-08-25] MEDS: fentaNYL 50 MCG/HR PATCH TD SCH (09:05)
[2015-08-25] MEDS: FLUCONAZOLE 200 MG PREMIX BAG 100 ML IV SCH (11:02)
[2015-08-25] MEDS: LEVOFLOXACIN 500 MG PREMIX INJ 100 ML IV SCH (11:03)
--- NOTE | 2015-08-25 12:06 | HHI.HCPN ---
Reason for visit a. To assist with evaluation and management of symptoms including: dyspnea ; pain b. To assist medical decision maker(s) with: better understanding of current medical conditions; weighing benefits/burdens of medical treatment options; making medical treatment decisions. . Subjective/Interval History Patient remains minimally responsive in the MICU. He has periods of tolerating CPAP but before he become well enough to consider leaving the MICU, he usually declines and goes back on the ventilator. There is no evidence to suggest this patten will improve. He is tolerating tube feeds, but albumin remains low. He has repeated pneumonias and urinary tract infections. He is normally tachypnic. There has been no recent use of opiates though he has orders for acetaminophen/hydrocodone, iv fentanyl, and iv morphine. Nursing pain level scores have been consistently "0." Afebrile. BPs low but stable. RR typically 25-30. Tolerating tube feedings. Bowels moving. From Dr. Pickard's initial palliative care consultation of 07/15/15... This is the 5th [facility] care [facility] admission in the last 10 months for this unfortunate 54 y/o male half-way [facility] resident with advanced Parkinson's disease ; dementia; tracheostomy and PEG tube who was sent to the ED from his facility on 06/18/15 because of fevers, labored breathing, worsening mental status; and purulent looking sputum at the trach site. The patient has had multiple hospitalizations which included stays in the intensive care unit for various infections. He had a urinary tract infection with multidrug resistant ESBL on 02/19/15. He was last MRSA positive on . half-way notes from the facility indicate that his current baseline is: * Bedbound status * Unable to communicate * NPO -- on tube feedings at 85 cc /hr * Dependent for all ADLs In the emergency Department, initial vital signs were as follows > temperature 100.9; pulse 98; respiratory rate 38; blood pressure 104/61; pulse oximetry 99% on room air via trach collar. Initial physical examination the emergency department revealed the following > patient was frail and chronically ill-appearing. Skin showed no obvious wounds. Head, eyes, ENT, neck, cardiovascular, respiratory, gastrointestinal exams were unremarkable. Neurologically, the patient was unable to answer questions or respond or follow commands. Initial diagnostic testing revealed the following: * CBC showed WBC 16.4; hemoglobin 11.3; platelet count 176 * Coagulation profile showed PT 11.4; INR 1.1; PTT 29.4 * Chemistry profile showed sodium 141; potassium 4.5; chloride 105; CO2 27.4; anion gap 9; BUN 21; creatinine 0.85; estimated GFR 95; glucose 116; calcium 9.6 * Liver function tests showed total bilirubin 0.6; AST 23; ALT 38; alkaline phosphatase 59; total protein 7.5; albumen 3.2 * Urinalysis was remarkable for large occult blood; large leukocyte esterase; few bacteria; few yeast with hyphae; few budding yeast. * Arterial blood gases on trach mask at 40% showed pH 7.53; PCO2 33; PaO2 108; bicarbonate 27; base excess 4.2 * Chest x-ray showed no acute cardiopulmonary disease * Head CT showed diffuse atrophy unchanged from prior exam. * CT of the abdomen and pelvis showed chronic nonspecific urinary bladder wall thickening; bladder collapsed with Valdez catheter in place; chronic bilateral mid to lower lung zone groundglass opacity; nonobstructing left renal calculus; distended rectum. * The emergency room doctor diagnosed severe sepsis. The patient was given 2 L of IV fluid and broad-spectrum antibiotic-coated verge in the emergency department. Cultures were obtained. Valdez catheter was changed. As the patient was markedly tachypneic with increased work of breathing and use of accessory muscles during his stay in the emergency department. He was placed on CPAP and subsequently intubated and placed on mechanical ventilation. Critical care was consulted and the patient was admitted to the intensive care unit. Further examination revealed a stage II 6 x 2 cm sacral wound. Urine culture on admission grew out Heena of 2 different species. Sputum culture grew out Klebsiella pneumonia ESBL positive as well as pseudomonas. Blood culture grew out coag-negative staph and staph epidermidis. Both infectious disease and pulmonology were consulted. The patient slowly improved, was extubated, and critical care signed off on . However, on 07/06 the patient had to be placed back on the ventilator. A right sided pneumothorax was noted and patient underwent chest tube placement by interventional radiology. Pneumothorax has appeared to resolve on most recent chest x-ray. Sputum, blood, and urine cultures from 07/07/15 are all negative. White blood count is currently down to 7. Hemoglobin is 10.6. Albumen is suboptimal at 3.0. Renal function is normal. He is currently off anti-biotics. Current pain regimen includes the following: * Fentanyl patch; 50 g per hour * Morphine sulfate 5 mg sublingually or via the tube every 4 hours when necessary (he has been using 1-2 doses of this per day) The patient was tolerating CPAP earlier today and has since been removed from the ventilator and is on a T-piece at 40% FI02. At time of my visit, eyes are open. He intermittently tracks. He cannot follow commands and makes no attempt to interact. . Family/friend interactions Attempted to contact Radha (daughter and proxy). Unable to leave message as "Voicemail is full." . Advance Directives Living Will: Never completed Health Care Surrogate: Copy in medical record Durable Power of Sharepoint Application Developer: Never completed Advance Directive Specifics Date completed: Patient visited Scott Mack, Sharepoint Application Developer in March and again in November 2014. The patient was encouraged to complete Advance directive documents but never did them. Dr. Pickard personally called Mr. Mack ([phone]) to check for advance directives. Health Care Surrogate(s): The patient completed a health care surrogate document dated 09/02/14 desigating his friend Bola Nolasco as surrogate. Mr. Nolasco was not aware of this and has declined serving in that capacity. The patient has an adult daughter -- Radha Foreman who is willing to serve as health care proxy decision maker. Patient's mother, Teresa is aware. Objective Vital Signs Date Time Temp Pulse Resp B/P Pulse Ox O2 Delivery O2 Flow Rate FiO2 08/25/15 11:42 98 35 08/25/15 11:42 35 08/25/15 10:22 30 08/25/15 10:00 69 08/25/15 08:12 97 35 08/25/15 08:00 98.7 93 30 102/64 97 08/25/15 08:00 35 08/25/15 08:00 93 08/25/15 06:00 84 08/25/15 04:00 98.0 86 26 103/62 97 08/25/15 04:00 35 08/25/15 04:00 86 08/25/15 03:56 97 35 08/25/15 02:00 80 08/25/15 01:09 97 35 08/25/15 00:00 35 08/25/15 00:00 97.0 85 23 100/55 98 08/25/15 00:00 85 08/24/15 22:23 98 35 08/24/15 22:00 79 08/24/15 20:00 96.7 79 23 91/55 98 08/24/15 20:00 79 08/24/15 20:00 35 08/24/15 18:00 81 08/24/15 17:28 97 35 08/24/15 16:00 88 08/24/15 16:00 97.8 88 27 93/59 96 08/24/15 16:00 35 08/24/15 14:00 86 08/24/15 12:00 97.5 86 29 93/63 95 08/24/15 12:00 86 08/24/15 12:00 35 Intake & Output 08/25/15 08/25/15 07:00 19:00 Intake Total 886 ml Output Total 1750 ml Balance -864 ml IV Total 89 ml Tube Feeding 797 ml Output Urine Total 1750 ml # Bowel Movements 2 . Physical Exam CONSTITUTIONAL/GENERAL: This is a thin, pale, contracted, chronically ill appearing male on trach to vent (CPAP mode) in the MICU. No apparent distress. Eyes open but unresponsive. TUBES/LINES/DRAINS: Trach; valdez; SCDs; PIV; PEG tube; scd's SKIN: No jaundice, rashes, or lesions. No wounds seen anteriorly -- did not examine sacral area. Skin temperature appropriate. Not diaphoretic. EYES: Pupils equal and round. No scleral icterus. No injection or drainage. Fundi not examined. ENT: Nose without bleeding or purulent drainage. Oropharynx without erythem, lesions, exudate. NECK: Trachea midline. Tracheostomy. CARDIOVASCULAR: Regular rate and rhythm without murmurs, gallops, or rubs. No JVD. Peripheral pulses symmetric. RESPIRATORY/CHEST: Tachypneic with symmetric, labored respirations. Some coarse breath sounds bilaterally. Breath sounds equal bilaterally and diminished at bases. GASTROINTESTINAL: Abdomen soft, non-tender, nondistended. No guarding. Bowel sounds present. GENITOURINARY: Without palpable bladder distension. Valdez catheter in place. MUSCULOSKELETAL: Extremities without clubbing, cyanosis, or edema. Contractures. No calf tenderness. No mottling . NEUROLOGICAL: Eyes open but does not track. Unable to follow even simple commands. No spontaneous movements seen. PSYCHIATRIC: Unable to assess due to level of responsiveness. . Diagnostic Tests Laboratory Laboratory Tests Test 08/23/15 08/24/15 08/25/15 03:32 03:51 03:59 White Blood Count 8.3 TH/MM3 7.3 TH/MM3 7.9 TH/MM3 (4.0-11.0) (4.0-11.0) (4.0-11.0) Red Blood Count 3.04 MIL/MM3 3.32 MIL/MM3 3.32 MIL/MM3 (4.50-5.90) (4.50-5.90) (4.50-5.90) Hemoglobin 8.3 GM/DL 8.9 GM/DL 9.0 GM/DL (13.0-17.0) (13.0-17.0) (13.0-17.0) Hematocrit 27.0 % 29.4 % 29.2 % (39.0-51.0) (39.0-51.0) (39.0-51.0) Mean Corpuscular Volume 88.8 FL 88.6 FL 87.9 FL (80.0-100.0) (80.0-100.0) (80.0-100.0) Mean Corpuscular Hemoglobin 27.3 PG 26.8 PG 27.0 PG (27.0-34.0) (27.0-34.0) (27.0-34.0) Mean Corpuscular Hemoglobin 30.7 % 30.2 % 30.8 % Concent (32.0-36.0) (32.0-36.0) (32.0-36.0) Red Cell Distribution Width 13.9 % 14.2 % 14.2 % (11.6-17.2) (11.6-17.2) (11.6-17.2) Platelet Count 166 TH/MM3 215 TH/MM3 196 TH/MM3 (150-450) (150-450) (150-450) Mean Platelet Volume 11.2 FL 10.6 FL 10.7 FL (7.0-11.0) (7.0-11.0) (7.0-11.0) Neutrophils (%) (Auto) 63.7 % 68.6 % 63.7 % (16.0-70.0) (16.0-70.0) (16.0-70.0) Lymphocytes (%) (Auto) 13.5 % 9.7 % 14.3 % (9.0-44.0) (9.0-44.0) (9.0-44.0) Monocytes (%) (Auto) 9.1 % (0.0-8.0) 6.0 % (0.0-8.0) 6.9 % (0.0-8.0) Eosinophils (%) (Auto) 13.1 % 13.4 % 14.6 % (0.0-4.0) (0.0-4.0) (0.0-4.0) Basophils (%) (Auto) 0.6 % (0.0-2.0) 2.3 % (0.0-2.0) 0.5 % (0.0-2.0) Neutrophils # (Auto) 5.3 TH/MM3 5.0 TH/MM3 5.0 TH/MM3 (1.8-7.7) (1.8-7.7) (1.8-7.7) Lymphocytes # (Auto) 1.1 TH/MM3 0.7 TH/MM3 1.1 TH/MM3 (1.0-4.8) (1.0-4.8) (1.0-4.8) Monocytes # (Auto) 0.8 TH/MM3 0.4 TH/MM3 0.5 TH/MM3 (0-0.9) (0-0.9) (0-0.9) Eosinophils # (Auto) 1.1 TH/MM3 1.0 TH/MM3 1.1 TH/MM3 (0-0.4) (0-0.4) (0-0.4) Basophils # (Auto) 0.0 TH/MM3 0.2 TH/MM3 0.0 TH/MM3 (0-0.2) (0-0.2) (0-0.2) CBC Comment DIFF FINAL DIFF FINAL DIFF FINAL Differential Comment Sodium Level 143 MEQ/L 140 MEQ/L 141 MEQ/L (136-145) (136-145) (136-145) Potassium Level 4.3 MEQ/L 4.3 MEQ/L 4.5 MEQ/L (3.5-5.1) (3.5-5.1) (3.5-5.1) Chloride Level 99 MEQ/L 100 MEQ/L 101 MEQ/L (98-107) (98-107) (98-107) Carbon Dioxide Level 41.0 MEQ/L 37.8 MEQ/L 37.7 MEQ/L (21.0-32.0) (21.0-32.0) (21.0-32.0) Anion Gap 3 MEQ/L (5-15) 2 MEQ/L (5-15) 2 MEQ/L (5-15) Blood Urea Nitrogen 15 MG/DL (7-18) 15 MG/DL (7-18) 15 MG/DL (7-18) Creatinine 0.37 MG/DL 0.37 MG/DL 0.38 MG/DL (0.60-1.30) (0.60-1.30) (0.60-1.30) Estimat Glomerular Filtration 247 ML/MIN 247 ML/MIN 240 ML/MIN Rate (>89) (>89) (>89) Random Glucose 125 MG/DL 126 MG/DL 90 MG/DL (74-106) (74-106) (74-106) Calcium Level 9.4 MG/DL 9.2 MG/DL 9.8 MG/DL (8.5-10.1) (8.5-10.1) (8.5-10.1) . Result Diagram: 08/25/15 0359 08/25/15 0359 Imaging Last Impressions Chest X-Ray 08/25/15 0600 Signed Impressions: Service Date/Time: Tuesday, August 25, 2015 02:35 - CONCLUSION: No significant change has occurred. Jeramie Manjarrez MD Tunnelled Chest Tube Removal 08/05/15 1100 Signed Impressions: Service Date/Time: Wednesday, August 05, 2015 11:00 - CONCLUSION: Uncomplicated chest tube removal. Blaine Jackson MD Chest Tube Change 07/31/15 0000 Signed Impressions: Service Date/Time: Friday, July 31, 2015 14:34 - CONCLUSION: Uncomplicated reposition of previously placed chest tube as above. Blaine Jackson MD Chest Tube Insertion 07/30/15 0000 Signed Impressions: Service Date/Time: July 14:50 - CONCLUSION: Uncomplicated chest tube placement as above. Blaine Jackson MD Catheter Change 07/27/15 0000 Signed Impressions: Service Date/Time: Monday, July 27, 2015 14:43 - CONCLUSION: Uncomplicated gastrostomy tube exchange as above. Blaine Jackson MD Chest CT 07/11/15 0000 Signed Impressions: Service Date/Time: Saturday, July 11, 2015 09:49 - CONCLUSION: Scattered patchy densities significantly improved from previous study. Tiny anterior right basilar pneumothorax. Right-sided chest tube in good position. Néstor Matamoros MD Head CT 06/18/151902 Signed Impressions: Service Date/Time: June 19:31 - CONCLUSION: Diffuse atrophy unchanged. No acute intracranial findings. Kush Briscoe MD Abdomen/Pelvis CT 06/18/151902 Signed Impressions: Service Date/Time: June 19:36 - CONCLUSION: 1. Chronic nonspecific urinary bladder wall thickening. Bladder collapsed with Valdez catheter in place. 2. Chronic bilateral mid to lower lung zone groundglass opacity. 3. Nonobstructing left renal calculus. 4. Distended rectum. Kush Briscoe MD . Procedures * Mechanical ventilation * Chest tube placement on right 07/07/15 * Chest tube removal 07/17/15 . Assessment and Plan Disease Oriented Problem List: (1) Acute respiratory failure Comment: Secondary to pneumonia. Able to get on CPAP for a while, but unable eliminate vent dependence long enough to get out of ICU. . (2) Pneumonia Comment: Cultures have been positive for Pseudomonas AND Klebsiella ESBL ANd Stenotrophomonas during hospitalization . (3) Pneumothorax on right Comment: Resolved . (4) Septic shock Comment: Blood cx have been postiive for Staph coag neg and Staph epidermidis . (5) Parkinson disease (6) Moderate malnutrition (7) UTI (urinary tract infection) Comment: Cultures have been positive for Heena (tropicalis and glabrata) (8) Chronic respiratory failure Symptom Scale: (1) Pain 0-10 Scale: Unable to quantify Comment: Sources of pain might include wound, prolonged bedbound status, contractures, restraints, valdez, vascular access catheters. Appears comfortable on current regimen. ,l (2) Dyspnea 0-10 Scale: Unable to quantify Comment: Frequently tachypnic. . Pertinent Non-Medical Issues Psychosocial: [facility] resident. 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 Severe dementia. Daughter, mother, and brother are involved. Spiritual: Hoahaoism. [facility] a [facility] and members have provided both community support and spiritual support in the past. Legal: No advance directives. Daughter (Radha Foreman) is legal proxy and lives 4 hours away. can be quite difficult to contact by phone. Ethical issues impacting care: None. . Important Contacts * Radha Foreman (daughter and proxy) [phone] * Teresa Perea (mother -- lives in [place]) [phone] . Prognosis Patient has end stage Parkinson's with end stage dementia. [facility] and has required multiple hospitalizations for sepsis. He is a chronic trach/PEG tube patient with contractures and skin breakdown. Should family continue to want aggressive care, he will continue to go back and forth from facility to hospital until such time that we are no longer able to overcome the sepsis. Patient is hospice eligible whenever family is ready to transition to "comfort measures only." . Code Status: Full Code Plan * Code status: FULL CODE * Decision making: Patient is incapacitated and will not regain capacity. There is no designated health care surrogate. Daughter, Radha Foreman, is legal proxy under [place] statutes but can be hard to contact at times. * 08/25/15 - Called to speak with Radha hunter via telephone to provide medical update and review goals of medical treatment. No answer. Unable to leave message as "voicemail is full." * Pain: Sources of pain are unclear as patient in non communicative, but would include prolonged bedbound status; tubes and lines; contractures; wound; etc. Current regimen appears to adequate . No further recommendations at this time. * Dyspnea: Dyspnea was due to pneumonia and pneumothorax. Remains very challenging to get off vent support and patient continues to become increasingly deconditioned. May need LTAC placement as he has proven hard to keep off the vent. No further recommendations at this time. * Malnutrition: Tolerating tube feeds, but albumin remains low. * Agitation/Behavioral issues: Adequately controlled with current neuroleptic and benzo regimen. No further recommendations at this time. * Palliative care will try and meet with Radha (proxy) in person when she next comes to visit. She continues to insist on aggressive goals in spite of the incredibly bleak prognosis. . . . Attestation To help prompt me to consider important information that might be impacting today's encounter and assessment, information from prior notes written by myself or my colleagues may have been "brought forward" into today's note. My signature on this note, however, is an attestation that I personally performed the exam, history, and/or decision-making noted today, and, unless otherwise indicated, the interactions with patient, family, and staff as well as the review of records all occurred today. I also attest that the listed assessment and stated plan reflect my best clinical judgment today based on the combination of historical information, prior notes, and today's exam/ interactions. When time spent is documented, it refers only to time spent today by the signer, or if indicated, combined time spent today by collaborating physician/nurse practitioner. . Pascual Pickard MD Aug 25, 2015 12:06
--- NOTE | 2015-08-25 18:37 | HHI.PR ---
Subjective Remarks On CPAP /PSV 5/20, Fio2 35%,and tachypneic . Unable to tolerate T bar. Remains Lethargic. On tube feeds. Objective Vital Signs Date Time Temp Pulse Resp B/P Pulse Ox O2 Delivery O2 Flow Rate FiO2 08/25/15 18:00 93 08/25/15 16:39 100 35 08/25/15 16:00 35 08/25/15 16:00 97.7 93 28 94/56 97 08/25/15 16:00 93 08/25/15 14:00 90 08/25/15 12:00 89 08/25/15 12:00 97.7 89 22 81/55 96 08/25/15 12:00 35 08/25/15 11:42 98 35 08/25/15 11:42 35 08/25/15 10:22 30 08/25/15 10:00 69 08/25/15 08:12 97 35 08/25/15 08:00 98.7 93 30 102/64 97 08/25/15 08:00 35 08/25/15 08:00 93 08/25/15 06:00 84 08/25/15 04:00 98.0 86 26 103/62 97 08/25/15 04:00 35 08/25/15 04:00 86 08/25/15 03:56 97 35 08/25/15 02:00 80 08/25/15 01:09 97 35 08/25/15 00:00 35 08/25/15 00:00 97.0 85 23 100/55 98 08/25/15 00:00 85 08/24/15 22:23 98 35 08/24/15 22:00 79 08/24/15 20:00 96.7 79 23 91/55 98 08/24/15 20:00 79 08/24/15 20:00 35 I/O 08/24/15 08/24/15 08/24/15 08/25/15 08/25/15 08/25/15 07:00 15:00 23:00 07:00 15:00 23:00 Intake Total 610 ml 1059 ml 464 ml 422 ml 1010 ml Output Total 1200 ml 600 ml 750 ml 1000 ml 550 ml Balance -590 ml 459 ml -286 ml -578 ml 460 ml IV Total 41 ml 229 ml 57 ml 32 ml 149 ml Tube Feeding 509 ml 710 ml 407 ml 390 ml 741 ml Tube Irrigant 60 ml Other 120 ml 120 ml Output Urine Total 1200 ml 600 ml 750 ml 1000 ml 550 ml # Bowel Movements 1 1 1 1 0 Result Diagram: 08/25/1535808/25/15358 Objective Remarks This is a thin white male who in on the vent, with a trach tube in place. HEENT: Pupils are equal and reactive to light.Throat dry. CHEST: Bilateral wheeze. Decreased breath sounds . CARDIOVASCULAR: S1 and S2 is normal. ABDOMEN: Soft, nondistended. He has a PEG tube in place. EXTREMITIES: No edema.muscle wasting. NEURO: Lethargic and Does not move his extremities .Reflexes not elicited. Assessment and Plan Assessment and Plan IMPRESSION 1. Respiratory failure, ventilator dependent 2. Sepsis, resolving. 3. UTI 4. Tracheobronchitis 5. Parkinson's disease 6. Dementia. 7. Severe Deconditioning. 8. Left Pneumothorax. Resolved. Plan : 1. CPAP/PSV 5/20, FIO2 35 % 2. Nebs qid , duoneb. 3. Antibiotics per ID. 4. T Bar 40 % for 3 hrs if tolerating. 5. Levsin .125 mg tid via peg. 6. CBC,BMP in am. 7. Cont Tube feeds at 60 CC 8. Lovenox 40 Mg S/Q daily. Darren Kiser MD Aug 25, 2015 18:37
[2015-08-25 21:00] LABS: MEAN CORPUSCULAR HGB CONC 30.9 % (32.0-36.0)
[2015-08-25] MEDS: ENOXAPARIN SODIUM 40 MG/0.4 ML SYRINGE SQ SCH (21:03)
[2015-08-25] MEDS: OLANZapine 5 MG TAB GT SCH (21:04)
[2015-08-26] VITALS (18 sets, daily range): BP systolic 89–122; BP diastolic 55–76; PULSE 71–89; RESP 14–28; TEMP 97–98.2; O2SAT 96–100
[2015-08-26] MEDS: CARBIDOPA/LEVODOPA 25 MG/100 MG TAB GT SCH ×3 (04:31→20:38)
[2015-08-26] MEDS: clonazePAM 1 MG TAB PO SCH ×3 (04:31→20:38)
[2015-08-26] MEDS: HYOSCYAMINE SOLN 0.125 MG/ML 15 ML BTL PO SCH ×3 (04:31→20:39)
[2015-08-26 07:10] LABS: BASOPHIL # 0.1 TH/MM3 (0-0.2); BASOPHIL % 0.8 % (0.0-2.0); EOSINOPHIL % 14.4 % (0.0-4.0); HEMO FLAGS DIFF FINAL; LYMPH % 20.6 % (9.0-44.0); LYMPHOCYTE # 1.4 TH/MM3 (1.0-4.8); MEAN CELL VOLUME 88.2 FL (80.0-100.0); MEAN CORPUSCULAR HEMOGLOBIN 27.3 PG (27.0-34.0); MONO % 6.6 % (0.0-8.0); NEUT % 57.6 % (16.0-70.0); PLATELET COUNT 213 TH/MM3 (150-450); RED BLOOD COUNT 3.51 MIL/MM3 (4.50-5.90); RED CELL DISTRIBUTION WIDTH 14.7 % (11.6-17.2); WHITE BLOOD COUNT 6.9 TH/MM3 (4.0-11.0)
[2015-08-26 07:29] LABS: BICARBONATE 39.1 MEQ/L (21.0-32.0); POTASSIUM 4.4 MEQ/L (3.5-5.1)
--- NOTE | 2015-08-26 07:45 | HHI.CCPN ---
Subjective Remarks/Hospital Course 06/17: Pt is a 54 yr man with multiple medial problems including Parkinson's disease, advanced dementia, hyponatremia, anxiety, pneumonia, GERD, cognitive disorder, and multidrug resistant UTI- ESBL02/19/15 , who resides in a long-term. Pt by report was found by staff in long-term to be less alert and having respiratory difficultly and fevers. Pt was brought to ED adn placed on ventilator. His workup was inclusive of labs, chest xray and ct head and abd/pelvis. WBC 16.4, +UTI, lactic acid 4, troponin ,0.02, BUN/ cre 18/ 0.76. CT head 06/18/15: diffuse atrophy unchanged. No acute intracranial findings ct abd/ pelvis with IV contrast: 06/18/15 Conclusion: 1. Chronic nonspecific urinary bladder wall thickening. Bladder collapsed with Putnam catheter in place. 2.Chronic bilateral mid to lower zone groundglass opacity. 3. Nonobstructing left renal calculus. 4. Distended rectum Pt admitted and fluid and abx ordered. 06/18: Drowsy, easily arousable. On mechanical ventilation via tracheostomy. Tachypneic. Resting tremor noted. 06/19: Drowsy, arousable. On mechanical ventilation via tracheostomy. 06/20: Drowsy, arousable. Remains on mechanical ventilation via tracheostomy. We'll repeat blood cultures, UA and urine cultures. Fluconazole IV added in view of yeast in urine. 07/06: Reconsulted as patient return to the ventilator on a right ventricular due to tachypnea. Low-grade temperatures. Tolerating tube feeding. Extremity encephalopathic demented patient with difficult neurological examination. 07/07: Status post chest tube placement by IR for right pneumothorax 07/06. Afebrile. Tolerating tube feeds. Positive BM. Currently tachypneic on the ventilator. Does not appear to be any acute distress. 07/08: Afebrile. Tolerating tube feeding. He is comfortable currently on CPAP trials 11/10. Positive BM. 07/09: Afebrile. Tolerating tube feeding. Appears comfortable on T bar. Positive BM. 07/10: Afebrile. Eyes are open. Remained on T piece overnight. Tolerating tube feeding. 07/11: MAXIMUM TEMPERATURE 100. Currently 98.6. Eyes are open. On ACV overnight secondary to "tachypnea and sweating". Switching back to PSV trials today. Goal is T piece during daytime, CPAP at night. 07/12: No acute events overnight. On PSV 15/5 -attempt TP up to 6 hours today. No pneumothorax on chest x-ray 07/13: Placed back on full ventilator support for tachypnea. Otherwise clinically unchanged. No fever today 07/14: Patient was on T piece yesterday evening, placed back on PSV overnight, patient mechanical ventilation this morning. Patient appears to be struggling with mechanical ventilation. Patient placed back on PSV with improvement 07/15: Patient placed back on mechanical ventilation last evening due to respiratory rate. It was indicated patient was tachypnea can the 40s. Patient on mechanical ventilation this time with respiration rate mid 20s. Chest tube still in place without any output, chest x-ray still indicating resolution of pneumothorax. 07/16: Patient seen and examined today. Patient placed back on mechanical ventilation overnight due to respiratory rate. Even on mechanical ventilation patient has respiration rate in the 30s. Patient afebrile, blood pressure stable. Continue vent weaning 07/17: Patient seen and examined. Currently afebrile. Currently on CPAP 15/5 @ 40%. Patient is awake with open mouth resting in bed in no apparent acute distress. Tolerating tube feeding. 2 bowel movements. 07/18: No neurological changes. Afebrile. 2 bowel moments. Tolerating tube feeding. We'll attempt TP trials today. On CPAP since 07/15 07/19 No events overnight. On CPAP with PS: 10, PEEP: 5 and FIO2 35%. Afebrile. On no sedation. 07/20 No events overnight. Tolerating CPAP. Afebrile. 07/21: Remains on CPAP. Attempt T piece trial today. Afebrile. One bowel movement. Tolerating tube feeding. 07/22: Afebrile. Positive BM. Tolerating tube feeding. Noted switched tracheostomy to #6 Shiley cuffed fenestrated. Neurologically unchanged 07/23: Afebrile. Positive BM. Tolerating tube feeding. Questionable leak in exchange trach. Place back on a rate/ACV overnight. Insufflated seems to be doing better at the present time. Will check chest x-ray. Possible he might need #6 XLT versus replacement of chronic #8 Shiley. 07/24: Tolerating TP today, RR in low 30s patient appears comfortable. No acute events overnight 07/25: Remains off the ventilator more than 36 hours now. Intermittently tachypneic probably breathing. Chest x-ray was clear yesterday. No acute events reported overnight. PEG not functioning per RN 08/02: Patient was transferred back to critical care service due to continuing ventilator management, tachypnea. Patient clinical status with no significant change. Patient with low-grade fever 100.2, 08/03: Patient seen and examined today. No significant change in clinical status. Patient still with chronic tachypnea. Patient afebrile now. 08/04: Patient seen and examined today. No change in clinical status. Patient still continues to have chronic tachypnea. Patient afebrile. Continue vent weaning 08/05: Patient seen and examined today. Patient had chest tube removed yesterday , chest x-ray shows redevelopment of pneumothorax. Chest tube replaced. Otherwise, patient still on ventilator with tachypnea. Afebrile 08/06: Patient seen and examined today. Patient went to have chest tube placed, repeat chest x-ray did not indicate any pneumothorax. No overnight events. We' ll need to pursue LTAC placement 08/07 No events overnight. On ventilator via trach. Afebrile. 08/08 Patient tolerated CPAP x4 hrs yesterday. Afebrile. On no sedation. 08/09 No events overnight. Tolerated CPAP x 12 hrs yesterday. Afebrile. 08/10 Patient tolerated TP's x 12 hrs yesterday back on ACV overnight. 08/11 No events overnight, currently on TP's with 40% FIO2. Afebrile. 08/12 On CPAP 10/5. Tolerated Tpiece 3 hours earlier today. Afebrile. 08/13 On CPAP 10/5. Not tolerating CPAP as well over last few days and RT notes challenge with suctioning respiratory secretions adequately. Discussing with healthcare proxy regarding exchange trach to 8.0. 08/14 Nursing and RT staff having continued difficulty suctioning respiratory secretions via 6.0 tracheostomy. KAREN Garcia did not consent to stoma dilation and trach upsize yesterday but said she would call back and let me know but no return call. Contacted again today and left a message. Afebrile. On CPAP 10/5. Brow furrowing on exam, appears to be in pain but pain not localizable. Tolerating tube feeds, had BM yesterday 08/15 Not tolerating CPAP today. Contacted healthcare surrogate again and discussed need for trach change. She consented and trach was dilated and up- sized to 8.0 Distal XLT to facilitate pulmonary toilet and to address volume leak. 08/16 No events overnight. Remains on ventilator via trach. Afebrile. Tolerating TF. 08/17 No events overnight. Afebrile. 08/18 Patient tolerated CPAP x 4 hrs yesterday. Afebrile.On ventilator via trach. 08/19 On CPAP 25/06. Temp max 99.3 Subjective: 08/20 Stenotrophomonas in sputum, started on Levaquin per ID. Temp max 99.8. On CPAP 20/09. Tube feeds were held because PEG was clogged but now PEG is functioning. 08/21 No events overnight. Afebrile. Remains on ventilator via trach. Has been tolerating CPAP trials for last 2 days. 08/22 No events overnight. Afebrile , Has been on CPAP all night with PS: 20, PEEP; 5 and FIO2 35%. 08/23 No events overnight. Remains on CPAP, T:99.9 08/24 No events overnight. On CPAP PS 10, PEEP; 5 and FIO2 35% overnight. Afebrile. 08/25 No events overnight. Afebrile. On CPAP overnight with PS 8, PEEP: 5 and FIO2 35%, afebrile. Tolerating TF. Objective - Vital Signs Date Time Temp Pulse Resp B/P Pulse Ox O2 Delivery O2 Flow Rate FiO2 08/26/15 06:11 82 08/26/15 04:29 100 35 08/26/15 04:00 98.0 19 122/76 Intake and Output 08/25/15 08/25/15 08/26/15 08:00 16:00 00:00 Intake Total 422 ml 1010 ml 553 ml Output Total 1000 ml 550 ml 400 ml Balance -578 ml 460 ml 153 ml Result Diagram: 08/26/15 0444 08/26/15 0444 Other Results Laboratory Tests Test 08/26/15 04:44 White Blood Count 6.9 TH/MM3 Red Blood Count 3.51 MIL/MM3 Hemoglobin 9.6 GM/DL Hematocrit 31.0 % Mean Corpuscular Volume 88.2 FL Mean Corpuscular Hemoglobin 27.3 PG Mean Corpuscular Hemoglobin 30.9 % Concent Red Cell Distribution Width 14.7 % Platelet Count 213 TH/MM3 Mean Platelet Volume 10.4 FL Neutrophils (%) (Auto) 57.6 % Lymphocytes (%) (Auto) 20.6 % Monocytes (%) (Auto) 6.6 % Eosinophils (%) (Auto) 14.4 % Basophils (%) (Auto) 0.8 % Neutrophils # (Auto) 4.0 TH/MM3 Lymphocytes # (Auto) 1.4 TH/MM3 Monocytes # (Auto) 0.5 TH/MM3 Eosinophils # (Auto) 1.0 TH/MM3 Basophils # (Auto) 0.1 TH/MM3 CBC Comment DIFF FINAL Differential Comment Sodium Level 143 MEQ/L Potassium Level 4.4 MEQ/L Chloride Level 98 MEQ/L Carbon Dioxide Level 39.1 MEQ/L Anion Gap 6 MEQ/L Blood Urea Nitrogen 19 MG/DL Creatinine 0.48 MG/DL Estimat Glomerular Filtration 183 ML/MIN Rate Random Glucose 113 MG/DL Calcium Level 9.6 MG/DL Imaging Last Impressions Chest X-Ray 08/25/15 0600 Signed Impressions: Service Date/Time: Tuesday, August 25, 2015 02:35 - CONCLUSION: No significant change has occurred. Jeramie Manjarrez MD Tunnelled Chest Tube Removal 08/05/15 1100 Signed Impressions: Service Date/Time: Wednesday, August 05, 2015 11:00 - CONCLUSION: Uncomplicated chest tube removal. Blaine Jackson MD Chest Tube Change 07/31/15 0000 Signed Impressions: Service Date/Time: Friday, July 31, 2015 14:34 - CONCLUSION: Uncomplicated reposition of previously placed chest tube as above. Blaine Jackson MD Chest Tube Insertion 07/30/15 0000 Signed Impressions: Service Date/Time: July 14:50 - CONCLUSION: Uncomplicated chest tube placement as above. Blaine Jackson MD Catheter Change 07/27/15 0000 Signed Impressions: Service Date/Time: Monday, July 27, 2015 14:43 - CONCLUSION: Uncomplicated gastrostomy tube exchange as above. Blaine Jackson MD Chest CT 07/11/15 0000 Signed Impressions: Service Date/Time: Saturday, July 11, 2015 09:49 - CONCLUSION: Scattered patchy densities significantly improved from previous study. Tiny anterior right basilar pneumothorax. Right-sided chest tube in good position. Néstor Matamoros MD Head CT 06/18/151902 Signed Impressions: Service Date/Time: June 19:31 - CONCLUSION: Diffuse atrophy unchanged. No acute intracranial findings. Kush Briscoe MD Abdomen/Pelvis CT 06/18/151902 Signed Impressions: Service Date/Time: June 19:36 - CONCLUSION: 1. Chronic nonspecific urinary bladder wall thickening. Bladder collapsed with Putnam catheter in place. 2. Chronic bilateral mid to lower lung zone groundglass opacity. 3. Nonobstructing left renal calculus. 4. Distended rectum. Kush Briscoe MD Objective Remarks GENERAL: 54-year-old male, cachectic, on CPAP via trach. HEENT: NC/AT. PERRL. MMM dry and pink. NECK: No JVD. 8.0 Distal XLT trach in place with no air leak. CARDIAC: RRR. S1/S2. No S4. No murmurs, clicks gallops or rubs. LUNGS: Tachypneic with bilateral rhonchi but no accessory muscle use. Equal breath sounds bilat, no wheeze. ABDOMEN: S/NT/ND. Bowel sounds present. EXTREMITIES: pulses are equal bilaterally. 1+ pedal edema NEUROLOGY: Patient with significant contractures of the right lower extremity, upper extremities. Eyes open spontaneously. Muscle wasting face, bilateral upper and lower extremities Procedures 07/26- PEG replacement 07/29- right pigtail catheter placement for new pneumothorax 07/29 Date of Insertion: Jul 30, 2015 A/P Assessment and Plan Neuro/Psych: Toxic metabolic Encephalopathy - chronic Parkinson's disease Cognitive disorder/Underlying dementia Depression CT head 06/18/15: - diffuse atrophy unchanged. No acute intracranial findings Continue Sinemet 25/100 q8 via PEG, Seroquel 50 mg twice a day, olanzapine 5 mg a night, Klonopin 2 mg every 8 hours, Paxil 20 daily and Neurontin 300 mg twice a day. These are detention home meds, dose of antipsychotics have been titrated up slightly since admit. Continue Lortab when necessary pain and fentanyl patch 50 g every 3 days for pain management. Fentanyl bolus prn breakthrough pain or if needed for turning/ nursing care/etc. Resp: Acute on chronic respiratory failure Chronic trach, Pneumonia Right pneumothorax status post pigtail catheter (resolved) Continue with vent support keep sat >92%. Daily CPAP trials with transition to Tpiece as tolerated. Pulmonary Dr. Gaurav corey following. Pulm toilet, trach care. Exchanged to 8 Distal XLT on 08/15 to facilitate suctioning, trach care. Bronchodilators ( DuoNeb) Give Diamox 250mg IV x1 Status post chest tube replacement by interventional radiology on 07/30, chest tube removed 08/04, repeat films do not indicate any pneumothorax CXR from 08/24 - no significant changes compared to prior study. Trach in place. Cardiac History of orthostasis History of CAD, HLP, Hypertension Continue Midodrine 5 mg twice a day Monitor HR and BP keep MAP>65mmHg GI: Malnutrition/protein calorie - moderate Status post PEG Hemorrhoids Gastroesophageal reflux disease - Tolerating Jevity 1.5 at 60 cc an hour per nutrition recommendations - Currently Prevacid 30 mg per PEG tube daily for GERD - Current Colace/senna for bowel regimen. FEN/renal: Nonobstructing left renal calculus - Monitor renal function, I/O's. electrolytes replacement per protocol. ID: Candiduria (heena tropicalis urine cx 08/17) ESBL positive Klebsiella/Pseudomonas pneumonia Stenotrophomonas in sputum 08/17 MRSA colonization sepsis UTI Klebsiella ESBL positive (has been treated) Continue with abx per ID: Diflucan 08/17. Levaquin started 08/20 for Stenotrophomonas. ID following. Completed course of meropenem for 08/11-08/20 for Klebsiella ESBL/pseudomonas pneumonia. On Lactinex tid Urine cx 08/17 - heena tropicalis Blood culture 08/17 negative sputum culture 08/17 - pseudomonas and Stenotrophomonas maltophilia. Urine culture: 08/02 Klebsiella pneumonia ESBL positive Urine culture: 08/02 Heena Tropicalis, C. Glabrata Sputum culture: 08/02 Pseudomonas, Klebsiella pneumonia ESBL positive Blood culture: 08/02 yeast species, Heena glabrata, Heena tropicalis - History of Multidrug resistant UTI- ESBL 02/19/15 , MRSA + 03/20/15 - Heena glabrata in urine 03/19/15 - Rechecked blood, sputum and urine cultures 07/06 no growth - 06/17 - blood cultures 2 - CONS/staph epi - 06/17 - sputum - ESBL positive Klebsiella/Pseudomonas Treated 15 days with tobramycin aerosols twice a day. - 06/17 - urine - C. glabrata/tropicalis - treated with Diflucan Endo: Euglycemic. Not requiring sliding scale Heme Anemia - Monitor CBC MSK Bilateral lower extremity Contractures Stage II sacral decubitus present on admission - Wound care evaluate and treat - Continue physical therapy Prophylaxis - GI - Prevacid - DVT - SCDs/ Lovenox. development manager eval for LTAC placement CCT 30 mins Antonio Carr MD Aug 26, 2015 07:45
[2015-08-26] MEDS: SENNOSIDES SYRUP 8.8 MG/5 ML CUP PO SCH (08:22)
[2015-08-26] MEDS: CHLORHEXIDINE 0.12% (ORAL KIT) 15 ML CUP MT SCH ×2 (08:22→20:38)
[2015-08-26] MEDS: GABAPENTIN 300 MG CAP G-TUBE SCH ×2 (08:23→20:38)
[2015-08-26] MEDS: SODIUM CHLORIDE 0.9% FLUSH 5 ML FLUSH IVF SCH ×2 (08:23→20:38)
[2015-08-26] MEDS: LANSOPRAZOLE SOLUTAB 30 MG TAB NG SCH (08:23)
[2015-08-26] MEDS: LACTOBACILLUS ACIDOPHILUS TAB PO SCH ×3 (08:23→18:03)
[2015-08-26] MEDS: QUEtiapine FUMARATE 25 MG TAB G-TUBE SCH ×2 (08:24→20:38)
[2015-08-26] MEDS: MIDODRINE 5 MG TAB G-TUBE SCH ×2 (08:25→20:38)
[2015-08-26] MEDS: PARoxetine HCL 20 MG TAB G-TUBE SCH (08:25)
[2015-08-26] MEDS: ARTIFICIAL TEARS OPTH SOLN 15 ML BTL EACH EYE SCH ×3 (08:26→18:03)
[2015-08-26] MEDS: COLLAGENASE OINT 30 GM TUBE TOP SCH (08:40)
[2015-08-26] MEDS: FLUCONAZOLE 200 MG PREMIX BAG 100 ML IV SCH (11:12)
[2015-08-26] MEDS: LEVOFLOXACIN 500 MG PREMIX INJ 100 ML IV SCH (11:12)
--- NOTE | 2015-08-26 13:09 | HHI.PR ---
Subjective Remarks On CPAP /PSV 5/8 Fio2 35%,and seems comfortable. Unable to tolerate T bar. Remains Lethargic. On tube feeds.Good output. Objective Vital Signs Date Time Temp Pulse Resp B/P Pulse Ox O2 Delivery O2 Flow Rate FiO2 08/26/15 12:00 35 08/26/15 12:00 81 08/26/15 12:00 97.8 81 14 90/60 100 08/26/15 10:42 97 35 08/26/15 10:00 85 08/26/15 08:35 100 35 08/26/15 08:00 98.2 85 18 100/60 98 08/26/15 08:00 85 08/26/15 08:00 35 08/26/15 06:11 82 08/26/15 04:29 100 35 08/26/15 04:00 35 08/26/15 04:00 75 08/26/15 04:00 98.0 75 19 122/76 100 08/26/15 02:00 85 08/26/15 00:22 98 35 08/26/15 00:00 97.6 89 28 108/68 98 08/26/15 00:00 35 08/26/15 00:00 89 08/25/15 22:00 87 08/25/15 20:14 98 35 08/25/15 20:00 81 08/25/15 20:00 35 08/25/15 20:00 98.6 81 18 92/59 99 08/25/15 18:00 93 08/25/15 16:39 100 35 08/25/15 16:00 35 08/25/15 16:00 97.7 93 28 94/56 97 08/25/15 16:00 93 08/25/15 14:00 90 I/O 08/25/15 08/25/15 08/25/15 08/26/15 08/26/15 08/26/15 07:00 15:00 23:00 07:00 15:00 23:00 Intake Total 422 ml 1010 ml 553 ml 573 ml Output Total 1000 ml 550 ml 400 ml 550 ml Balance -578 ml 460 ml 153 ml 23 ml IV Total 32 ml 149 ml 123 ml 37 ml Tube Feeding 390 ml 741 ml 400 ml 506 ml Other 120 ml 30 ml 30 ml Output Urine Total 1000 ml 550 ml 400 ml 550 ml # Bowel Movements 1 0 1 Result Diagram: 08/26/15 0444 08/26/15 0444 Objective Remarks This is a thin white male who in on the vent, with a trach tube in place. HEENT: Pupils are equal and reactive to light.Throat clear. CHEST: Occ Basal crackles. Decreased breath sounds . CARDIOVASCULAR: S1 and S2 is normal. ABDOMEN: Soft, nondistended. He has a PEG tube in place. EXTREMITIES: No edema.muscle wasting. NEURO: Lethargic and Does not move his extremities .Reflexes not elicited. Assessment and Plan Assessment and Plan IMPRESSION 1. Respiratory failure, ventilator dependent 2. Sepsis, resolving. 3. UTI 4. Tracheobronchitis 5. Parkinson's disease 6. Dementia. 7. Severe Deconditioning. 8. Left Pneumothorax. Resolved. Plan : 1. CPAP/PSV 06/13, FIO2 35 % 2. Nebs qid , duoneb. 3. Cont Tube feeds at 60 CC 4. T Bar 40 % for 3 hrs if tolerating. 5. Levsin .125 mg tid via peg. 6. No sedation. 8. Lovenox 40 Mg S/Q daily. Darren Kiser MD Aug 26, 2015 13:09
--- NOTE | 2015-08-26 17:00 | HHI.HCPN ---
Reason for visit a. To assist with evaluation and management of symptoms including: dyspnea ; pain b. To assist medical decision maker(s) with: better understanding of current medical conditions; weighing benefits/burdens of medical treatment options; making medical treatment decisions. . Subjective/Interval History Patient remains minimally responsive in the MICU. Tolerating CPAP. Afebrile. Tolerating tube feedings, though during my visit today PEG tube clogged, assisted RN at bedside to unclog tube. Labs are relatively stable. 08/18/15 urinalysis positive Heena tropicalis. Hypotensive BP 90/60. Bowels moving. There has been no recent use of opiates though he has orders for acetaminophen/ hydrocodone, IV Fentanyl, and IV Morphine. Nursing pain level scores have been consistently "0." No recent Ativan use. Continues to need Levsin for secretion management. From Dr. Pickard's initial palliative care consultation of 07/15/15... This is the 5th acute care [facility] admission in the last 10 months for this unfortunate 54 y/o male [facility] resident with advanced Parkinson's disease ; dementia; tracheostomy and PEG tube who was sent to the ED from his facility on 06/18/15 because of fevers, labored breathing, worsening mental status; and purulent looking sputum at the trach site. The patient has had multiple hospitalizations which included stays in the intensive care unit for various infections. He had a urinary tract infection with multidrug resistant ESBL on 02/19/15. He was last MRSA positive on . long term notes from the facility indicate that his current baseline is: * Bedbound status * Unable to communicate * NPO -- on tube feedings at 85 cc /hr * Dependent for all ADLs In the emergency Department, initial vital signs were as follows > temperature 100.9; pulse 98; respiratory rate 38; blood pressure 104/61; pulse oximetry 99% on room air via trach collar. Initial physical examination the emergency department revealed the following > patient was frail and chronically ill-appearing. Skin showed no obvious wounds. Head, eyes, ENT, neck, cardiovascular, respiratory, gastrointestinal exams were unremarkable. Neurologically, the patient was unable to answer questions or respond or follow commands. Initial diagnostic testing revealed the following: * CBC showed WBC 16.4; hemoglobin 11.3; platelet count 176 * Coagulation profile showed PT 11.4; INR 1.1; PTT 29.4 * Chemistry profile showed sodium 141; potassium 4.5; chloride 105; CO2 27.4; anion gap 9; BUN 21; creatinine 0.85; estimated GFR 95; glucose 116; calcium 9.6 * Liver function tests showed total bilirubin 0.6; AST 23; ALT 38; alkaline phosphatase 59; total protein 7.5; albumen 3.2 * Urinalysis was remarkable for large occult blood; large leukocyte esterase; few bacteria; few yeast with hyphae; few budding yeast. * Arterial blood gases on trach mask at 40% showed pH 7.53; PCO2 33; PaO2 108; bicarbonate 27; base excess 4.2 * Chest x-ray showed no acute cardiopulmonary disease * Head CT showed diffuse atrophy unchanged from prior exam. * CT of the abdomen and pelvis showed chronic nonspecific urinary bladder wall thickening; bladder collapsed with Valdez catheter in place; chronic bilateral mid to lower lung zone groundglass opacity; nonobstructing left renal calculus; distended rectum. * The emergency room doctor diagnosed severe sepsis. The patient was given 2 L of IV fluid and broad-spectrum antibiotic-coated verge in the emergency department. Cultures were obtained. Valdez catheter was changed. As the patient was markedly tachypneic with increased work of breathing and use of accessory muscles during his stay in the emergency department. He was placed on CPAP and subsequently intubated and placed on mechanical ventilation. Critical care was consulted and the patient was admitted to the intensive care unit. Further examination revealed a stage II 6 x 2 cm sacral wound. Urine culture on admission grew out Heena of 2 different species. Sputum culture grew out Klebsiella pneumonia ESBL positive as well as pseudomonas. Blood culture grew out coag-negative staph and staph epidermidis. Both infectious disease and pulmonology were consulted. The patient slowly improved, was extubated, and critical care signed off on . However, on 07/06 the patient had to be placed back on the ventilator. A right sided pneumothorax was noted and patient underwent chest tube placement by interventional radiology. Pneumothorax has appeared to resolve on most recent chest x-ray. Sputum, blood, and urine cultures from 07/07/15 are all negative. White blood count is currently down to 7. Hemoglobin is 10.6. Albumen is suboptimal at 3.0. Renal function is normal. He is currently off anti-biotics. Current pain regimen includes the following: * Fentanyl patch; 50 g per hour * Morphine sulfate 5 mg sublingually or via the tube every 4 hours when necessary (he has been using 1-2 doses of this per day) The patient was tolerating CPAP earlier today and has since been removed from the ventilator and is on a T-piece at 40% FI02. At time of my visit, eyes are open. He intermittently tracks. He cannot follow commands and makes no attempt to interact. . Family/friend interactions No family at bedside. Palliative care number previously provided. Advance Directives Living Will: Never completed Health Care Surrogate: Copy in medical record Durable Power of [place]: Never completed Advance Directive Specifics Date completed: Patient visited Scott Mack, [place] in March and again in November 2014. The patient was encouraged to complete Advance directive documents but never did them. Dr. Pickard personally called Mr. Mack ([phone]) to check for advance directives. Health Care Surrogate(s): The patient completed a health care surrogate document dated 09/02/14 desigating his friend Bola Nolasco as surrogate. Mr. Nolasco was not aware of this and has declined serving in that capacity. The patient has an adult daughter -- Radha Foreman who is willing to serve as health care proxy decision maker. Patient's motherTeresa is aware. Significant change in goals: FULL CODE. Goals remain aggressive. Objective Vital Signs Date Time Temp Pulse Resp B/P Pulse Ox O2 Delivery O2 Flow Rate FiO2 08/26/15 16:00 80 08/26/15 16:00 35 08/26/15 16:00 97.6 80 14 89/61 98 08/26/15 14:00 74 08/26/15 13:25 99 T-piece 8.00 50 08/26/15 12:00 35 08/26/15 12:00 81 7/20/16 12:00 97.8 81 14 90/60 100 08/26/15 10:42 97 35 08/26/15 10:00 85 08/26/15 08:35 100 35 08/26/15 08:00 98.2 85 18 100/60 98 08/26/15 08:00 85 08/26/15 08:00 35 08/26/15 06:11 82 08/26/15 04:29 100 35 08/26/15 04:00 35 08/26/15 04:00 75 08/26/15 04:00 98.0 75 19 122/76 100 08/26/15 02:00 85 08/26/15 00:22 98 35 08/26/15 00:00 97.6 89 28 108/68 98 08/26/15 00:00 35 08/26/15 00:00 89 08/25/15 22:00 87 08/25/15 20:14 98 35 08/25/15 20:00 81 08/25/15 20:00 35 08/25/15 20:00 98.6 81 18 92/59 99 08/25/15 18:00 93 Intake & Output 08/26/15 08/26/15 07:00 19:00 Intake Total 1126 ml 1021 ml Output Total 950 ml Balance 176 ml 1021 ml IV Total 160 ml 258 ml Tube Feeding 906 ml 563 ml Tube Irrigant 200 ml Other 60 ml Output Urine Total 950 ml # Bowel Movements 1 2 Physical Exam CONSTITUTIONAL/GENERAL: This is a thin, pale, contracted, chronically ill appearing male on trach to vent (CPAP mode) in the MICU. No apparent distress. Eyes open but unresponsive. TUBES/LINES/DRAINS: Trach; valdez; SCDs; PIV; PEG tube; scd's SKIN: No jaundice, rashes, or lesions. No wounds seen anteriorly -- did not examine sacral area. Skin temperature appropriate. Not diaphoretic. NECK: Tracheostomy. CARDIOVASCULAR: Regular rate and rhythm without murmurs, gallops, or rubs. No JVD. Peripheral pulses symmetric. RESPIRATORY/CHEST: Tachypneic with symmetric, labored respirations. Some coarse breath sounds bilaterally. Breath sounds equal bilaterally and diminished at bases. GASTROINTESTINAL: Abdomen soft, non-tender, nondistended. No guarding. Bowel sounds present. GENITOURINARY: Without palpable bladder distension. Valdez catheter in place. MUSCULOSKELETAL: Extremities without clubbing, cyanosis, or edema. Contractures. No calf tenderness. No mottling . NEUROLOGICAL: Eyes open but does not track. Unable to follow even simple commands. No spontaneous movements seen. PSYCHIATRIC: Unable to assess due to level of responsiveness. . Diagnostic Tests Laboratory Laboratory Tests Test 08/24/15 08/25/15 08/26/15 03:51 03:59 04:44 White Blood Count 7.3 TH/MM3 7.9 TH/MM3 6.9 TH/MM3 (4.0-11.0) (4.0-11.0) (4.0-11.0) Red Blood Count 3.32 MIL/MM3 3.32 MIL/MM3 3.51 MIL/MM3 (4.50-5.90) (4.50-5.90) (4.50-5.90) Hemoglobin 8.9 GM/DL 9.0 GM/DL 9.6 GM/DL (13.0-17.0) (13.0-17.0) (13.0-17.0) Hematocrit 29.4 % 29.2 % 31.0 % (39.0-51.0) (39.0-51.0) (39.0-51.0) Mean Corpuscular Volume 88.6 FL 87.9 FL 88.2 FL (80.0-100.0) (80.0-100.0) (80.0-100.0) Mean Corpuscular Hemoglobin 26.8 PG 27.0 PG 27.3 PG (27.0-34.0) (27.0-34.0) (27.0-34.0) Mean Corpuscular Hemoglobin 30.2 % 30.8 % 30.9 % Concent (32.0-36.0) (32.0-36.0) (32.0-36.0) Red Cell Distribution Width 14.2 % 14.2 % 14.7 % (11.6-17.2) (11.6-17.2) (11.6-17.2) Platelet Count 215 TH/MM3 196 TH/MM3 213 TH/MM3 (150-450) (150-450) (150-450) Mean Platelet Volume 10.6 FL 10.7 FL 10.4 FL (7.0-11.0) (7.0-11.0) (7.0-11.0) Neutrophils (%) (Auto) 68.6 % 63.7 % 57.6 % (16.0-70.0) (16.0-70.0) (16.0-70.0) Lymphocytes (%) (Auto) 9.7 % 14.3 % 20.6 % (9.0-44.0) (9.0-44.0) (9.0-44.0) Monocytes (%) (Auto) 6.0 % (0.0-8.0) 6.9 % (0.0-8.0) 6.6 % (0.0-8.0) Eosinophils (%) (Auto) 13.4 % 14.6 % 14.4 % (0.0-4.0) (0.0-4.0) (0.0-4.0) Basophils (%) (Auto) 2.3 % (0.0-2.0) 0.5 % (0.0-2.0) 0.8 % (0.0-2.0) Neutrophils # (Auto) 5.0 TH/MM3 5.0 TH/MM3 4.0 TH/MM3 (1.8-7.7) (1.8-7.7) (1.8-7.7) Lymphocytes # (Auto) 0.7 TH/MM3 1.1 TH/MM3 1.4 TH/MM3 (1.0-4.8) (1.0-4.8) (1.0-4.8) Monocytes # (Auto) 0.4 TH/MM3 0.5 TH/MM3 0.5 TH/MM3 (0-0.9) (0-0.9) (0-0.9) Eosinophils # (Auto) 1.0 TH/MM3 1.1 TH/MM3 1.0 TH/MM3 (0-0.4) (0-0.4) (0-0.4) Basophils # (Auto) 0.2 TH/MM3 0.0 TH/MM3 0.1 TH/MM3 (0-0.2) (0-0.2) (0-0.2) CBC Comment DIFF FINAL DIFF FINAL DIFF FINAL Differential Comment Sodium Level 140 MEQ/L 141 MEQ/L 143 MEQ/L (136-145) (136-145) (136-145) Potassium Level 4.3 MEQ/L 4.5 MEQ/L 4.4 MEQ/L (3.5-5.1) (3.5-5.1) (3.5-5.1) Chloride Level 100 MEQ/L 101 MEQ/L 98 MEQ/L (98-107) (98-107) (98-107) Carbon Dioxide Level 37.8 MEQ/L 37.7 MEQ/L 39.1 MEQ/L (21.0-32.0) (21.0-32.0) (21.0-32.0) Anion Gap 2 MEQ/L (5-15) 2 MEQ/L (5-15) 6 MEQ/L (5-15) Blood Urea Nitrogen 15 MG/DL (7-18) 15 MG/DL (7-18) 19 MG/DL (7-18) Creatinine 0.37 MG/DL 0.38 MG/DL 0.48 MG/DL (0.60-1.30) (0.60-1.30) (0.60-1.30) Estimat Glomerular Filtration 247 ML/MIN 240 ML/MIN 183 ML/MIN Rate (>89) (>89) (>89) Random Glucose 126 MG/DL 90 MG/DL 113 MG/DL (74-106) (74-106) (74-106) Calcium Level 9.2 MG/DL 9.8 MG/DL 9.6 MG/DL (8.5-10.1) (8.5-10.1) (8.5-10.1) Result Diagram: 08/26/15 0444 08/26/15 0444 Imaging Last Impressions Chest X-Ray 08/25/15 0600 Signed Impressions: Service Date/Time: Tuesday, August 25, 2015 02:35 - CONCLUSION: No significant change has occurred. Jeramie Manjarrez MD Tunnelled Chest Tube Removal 08/05/15 1100 Signed Impressions: Service Date/Time: Wednesday, August 05, 2015 11:00 - CONCLUSION: Uncomplicated chest tube removal. Blaine Jackson MD Chest Tube Change 07/31/15 0000 Signed Impressions: Service Date/Time: Friday, July 31, 2015 14:34 - CONCLUSION: Uncomplicated reposition of previously placed chest tube as above. Blaine Jackson MD Chest Tube Insertion 07/30/15 0000 Signed Impressions: Service Date/Time: July 14:50 - CONCLUSION: Uncomplicated chest tube placement as above. Blaine Jackson MD Catheter Change 07/27/15 0000 Signed Impressions: Service Date/Time: Monday, July 27, 2015 14:43 - CONCLUSION: Uncomplicated gastrostomy tube exchange as above. Blaine Jackson MD Chest CT 07/11/15 0000 Signed Impressions: Service Date/Time: Saturday, July 11, 2015 09:49 - CONCLUSION: Scattered patchy densities significantly improved from previous study. Tiny anterior right basilar pneumothorax. Right-sided chest tube in good position. Néstor Matamoros MD Head CT 06/18/151902 Signed Impressions: Service Date/Time: June 19:31 - CONCLUSION: Diffuse atrophy unchanged. No acute intracranial findings. Kush Briscoe MD Abdomen/Pelvis CT 06/18/151902 Signed Impressions: Service Date/Time: June 19:36 - CONCLUSION: 1. Chronic nonspecific urinary bladder wall thickening. Bladder collapsed with Valdez catheter in place. 2. Chronic bilateral mid to lower lung zone groundglass opacity. 3. Nonobstructing left renal calculus. 4. Distended rectum. Kush Briscoe MD Procedures * Mechanical ventilation * Chest tube placement on right 07/07/15 * Chest tube removal 07/17/15 . Assessment and Plan Disease Oriented Problem List: (1) Acute respiratory failure Comment: Secondary to pneumonia. Able to get on CPAP for a while, but unable eliminate vent dependence long enough to get out of ICU. . (2) Pneumonia Comment: Cultures have been positive for Pseudomonas AND Klebsiella ESBL ANd Stenotrophomonas during hospitalization . (3) Pneumothorax on right Comment: Resolved . (4) Septic shock Comment: Blood cx have been postiive for Staph coag neg and Staph epidermidis . (5) Parkinson disease (6) Moderate malnutrition (7) UTI (urinary tract infection) Comment: Cultures have been positive for Heena (tropicalis and glabrata) (8) Chronic respiratory failure Symptom Scale: (1) Pain 0-10 Scale: Unable to quantify Comment: Sources of pain might include wound, prolonged bedbound status, contractures, restraints, valdez, vascular access catheters. Appears comfortable on current regimen. ,l (2) Dyspnea 0-10 Scale: Unable to quantify Comment: Frequently tachypnic. . Pertinent Non-Medical Issues Psychosocial: long-term jail resident. 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 Severe dementia. Daughter, mother, and brother are involved. Spiritual: Zoroastrian. Has been a member for [facility] and members have provided both community support and spiritual support in the past. Legal: No advance directives. Daughter (Radha Foreman) is legal proxy and lives 4 hours away. can be quite difficult to contact by phone. Ethical issues impacting care: None. . Important Contacts * Radha Foreman (daughter and proxy) [phone] * Teresa Perea (mother -- lives in [place]) [phone] . Prognosis Patient has end stage Parkinson's with end stage dementia. 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 He is a chronic trach/PEG tube patient with contractures and skin breakdown. Should family continue to want aggressive care, he will continue to go back and forth from facility to hospital until such time that we are no longer able to overcome the sepsis. Patient is hospice eligible whenever family is ready to transition to "comfort measures only." . Code Status: Full Code Plan * Code status: FULL CODE * Decision making: Patient is incapacitated and will not regain capacity. There is no designated health care surrogate. Daughter, Radha Foreman, is legal proxy under [place] statutes but can be hard to contact at times. * 08/25/15 - Called to speak with Radha hunter via telephone to provide medical update and review goals of medical treatment. No answer. Unable to leave message as "voicemail is full." * Pain: Sources of pain are unclear as patient in non communicative, but would include prolonged bedbound status; tubes and lines; contractures; wound; etc. Current regimen appears to adequate . No further recommendations at this time. * Dyspnea: Dyspnea was due to pneumonia and pneumothorax. Remains very challenging to get off vent support and patient continues to become increasingly deconditioned. May need LTAC placement as he has proven hard to keep off the vent. No further recommendations at this time. * Malnutrition: Tolerating tube feeds, but albumin remains low. * Agitation/Behavioral issues: Adequately controlled with current neuroleptic and benzo regimen. No further recommendations at this time. * Palliative care will try and meet with Radha (proxy) in person when she next comes to visit. She continues to insist on aggressive goals in spite of the incredibly bleak prognosis. . . . Attestation To help prompt me to consider important information that might be impacting today's encounter and assessment, information from prior notes written by myself or my colleagues may have been "brought forward" into today's note. My signature on this note, however, is an attestation that I personally performed the exam, history, and/or decision-making noted today, and, unless otherwise indicated, the interactions with patient, family, and staff as well as the review of records all occurred today. I also attest that the listed assessment and stated plan reflect my best clinical judgment today based on the combination of historical information, prior notes, and today's exam/ interactions. When time spent is documented, it refers only to time spent today by the signer, or if indicated, combined time spent today by collaborating physician/nurse practitioner. ALOK JONES Aug 26, 2015 17:00
[2015-08-26] MEDS: OLANZapine 5 MG TAB GT SCH (20:38)
[2015-08-26] MEDS: CHLORHEXIDINE GLUCONATE 2 % 1 PACK (2 CLOTHS) TOP SCH (20:39)
[2015-08-26] MEDS: ENOXAPARIN SODIUM 40 MG/0.4 ML SYRINGE SQ SCH (20:39)
[2015-08-26 21:01] LABS: MEAN CORPUSCULAR HGB CONC 30.4 % (32.0-36.0)
[2015-08-27] VITALS (16 sets, daily range): BP systolic 87–114; BP diastolic 53–75; PULSE 75–83; RESP 12–23; TEMP 97.8–98.9; O2SAT 95–99
[2015-08-27] MEDS: ONDANSETRON HCL 4 MG/2 ML VIAL IV PRN (01:12)
[2015-08-27] MEDS: HYOSCYAMINE SOLN 0.125 MG/ML 15 ML BTL PO SCH ×3 (05:08→20:15)
[2015-08-27] MEDS: clonazePAM 1 MG TAB PO SCH ×3 (05:08→20:14)
[2015-08-27] MEDS: CARBIDOPA/LEVODOPA 25 MG/100 MG TAB GT SCH ×3 (05:08→20:14)
[2015-08-27] MEDS: GABAPENTIN 300 MG CAP G-TUBE SCH ×2 (08:08→19:44)
[2015-08-27] MEDS: MIDODRINE 5 MG TAB G-TUBE SCH ×2 (08:08→19:43)
[2015-08-27] MEDS: PARoxetine HCL 20 MG TAB G-TUBE SCH (08:08)
[2015-08-27] MEDS: SENNOSIDES SYRUP 8.8 MG/5 ML CUP PO SCH (08:08)
[2015-08-27] MEDS: LACTOBACILLUS ACIDOPHILUS TAB PO SCH ×3 (08:08→17:23)
[2015-08-27] MEDS: SODIUM CHLORIDE 0.9% FLUSH 5 ML FLUSH IVF SCH ×2 (08:09→19:44)
[2015-08-27] MEDS: ARTIFICIAL TEARS OPTH SOLN 15 ML BTL EACH EYE SCH ×3 (08:09→17:23)
[2015-08-27] MEDS: CHLORHEXIDINE 0.12% (ORAL KIT) 15 ML CUP MT SCH ×2 (08:09→19:44)
[2015-08-27] MEDS: QUEtiapine FUMARATE 25 MG TAB G-TUBE SCH ×2 (08:09→19:43)
[2015-08-27] MEDS: LANSOPRAZOLE SOLUTAB 30 MG TAB NG SCH (08:09)
[2015-08-27] MEDS: COLLAGENASE OINT 30 GM TUBE TOP SCH (08:11)
--- NOTE | 2015-08-27 08:12 | HHI.PR ---
Addendum to Inpatient Note Addendum Reason: Additional Documentation Additional Information ALFA Diflucan ALFA Levaquin. CXR clear. Secretions reduced. No fever Will sign off please call back if any change in clinical condition or questions. Trina Moss MD Aug 27, 2015 08:12
[2015-08-27 08:52] LABS: BASOPHIL % 0.6 % (0.0-2.0); EOSINOPHIL # 1.2 TH/MM3 (0-0.4); EOSINOPHIL % 14.7 % (0.0-4.0); HEMATOCRIT 29.8 % (39.0-51.0); HEMO FLAGS DIFF FINAL; LYMPH % 15.1 % (9.0-44.0); LYMPHOCYTE # 1.2 TH/MM3 (1.0-4.8); MEAN CELL VOLUME 88.4 FL (80.0-100.0); MEAN CORPUSCULAR HEMOGLOBIN 26.9 PG (27.0-34.0); MONO % 5.4 % (0.0-8.0); NEUT % 64.2 % (16.0-70.0); PLATELET COUNT 230 TH/MM3 (150-450); RED BLOOD COUNT 3.37 MIL/MM3 (4.50-5.90); RED CELL DISTRIBUTION WIDTH 14.4 % (11.6-17.2); WHITE BLOOD COUNT 7.8 TH/MM3 (4.0-11.0)
[2015-08-27 09:06] LABS: BICARBONATE 40.5 MEQ/L (21.0-32.0); POTASSIUM 4.7 MEQ/L (3.5-5.1)
--- NOTE | 2015-08-27 19:04 | HHI.PR ---
Subjective Remarks On a T Bar Fio2 35%,and seems comfortable.CPAP at HS. Remains Lethargic. On tube feeds.Good output. No change . Objective Vital Signs Date Time Temp Pulse Resp B/P Pulse Ox O2 Delivery O2 Flow Rate FiO2 08/27/15 18:00 75 08/27/15 16:00 50 08/27/15 16:00 98.1 77 16 96/62 99 08/27/15 16:00 77 08/27/15 14:00 81 08/27/15 12:00 81 08/27/15 12:00 97.8 81 12 100/63 95 08/27/15 12:00 35 08/27/15 10:00 83 08/27/15 09:12 98 T-piece 35 08/27/15 08:00 97.8 82 23 101/63 97 08/27/15 08:00 35 08/27/15 08:00 82 08/27/15 06:00 79 08/27/15 04:00 35 08/27/15 04:00 98.9 78 18 87/53 99 08/27/15 04:00 78 08/27/15 03:43 98 35 08/27/15 02:00 83 08/27/15 01:18 96 35 08/27/15 00:00 98.4 82 21 92/64 96 08/27/15 00:00 82 08/27/15 00:00 35 08/26/15 22:00 84 08/26/15 20:29 96 35 08/26/15 20:00 71 08/26/15 20:00 35 08/26/15 20:00 97.0 84 23 93/55 97 I/O 08/26/15 08/26/15 08/26/15 08/27/15 08/27/15 08/27/15 06:59 14:59 22:59 06:59 14:59 22:59 Intake Total 573 ml 1021 ml 561 ml 377 ml 454 ml Output Total 550 ml 800 ml 350 ml 750 ml Balance 23 ml 1021 ml -239 ml 27 ml -296 ml IV Total 37 ml 258 ml 70 ml 61 ml 54 ml Tube Feeding 506 ml 563 ml 461 ml 316 ml 300 ml Tube Irrigant 200 ml 100 ml Other 30 ml 30 ml Output Urine Total 550 ml 800 ml 350 ml 750 ml # Bowel Movements 1 2 1 Result Diagram: 08/27/1559908/27/15 06 Objective Remarks This is a thin white male who in on the vent, with a trach tube in place. HEENT: Pupils are equal and reactive to light.Throat clear. CHEST: Occ Basal crackles. Decreased breath sounds . CARDIOVASCULAR: S1 and S2 is normal. ABDOMEN: Soft, nondistended. He has a PEG tube in place. EXTREMITIES: No edema.muscle wasting. NEURO: Lethargic and Does not move his extremities .Reflexes not elicited. Assessment and Plan Assessment and Plan IMPRESSION 1. Respiratory failure, ventilator dependent 2. Sepsis, resolving. 3. UTI 4. Tracheobronchitis 5. Parkinson's disease 6. Dementia. 7. Severe Deconditioning. 8. Left Pneumothorax. Resolved. Plan : 1. CPAP/PSV 06/13, FIO2 35 % at HS 7 PM to 7 am. 2. Nebs qid , duoneb. 3. Cont Tube feeds at 60 CC 4. T Bar 40 % for 12 hrs if tolerating. 5. Levsin .125 mg tid via peg. 6. BMP in am. 8. Lovenox 40 Mg S/Q daily. Darren Kiser MD Aug 27, 2015 19:04
[2015-08-27] MEDS: OLANZapine 5 MG TAB GT SCH (19:43)
[2015-08-27] MEDS: CHLORHEXIDINE GLUCONATE 2 % 1 PACK (2 CLOTHS) TOP SCH (19:59)
[2015-08-27] MEDS: ENOXAPARIN SODIUM 40 MG/0.4 ML SYRINGE SQ SCH (20:14)
--- NOTE | 2015-08-27 22:37 | HHI.CCPN ---
Subjective Remarks/Hospital Course 06/17: Pt is a 54 yr man with multiple medial problems including Parkinson's disease, advanced dementia, hyponatremia, anxiety, pneumonia, GERD, cognitive disorder, and multidrug resistant UTI- ESBL02/19/15 , who resides in a skilled nursing. Pt by report was found by staff in skilled nursing to be less alert and having respiratory difficultly and fevers. Pt was brought to ED adn placed on ventilator. His workup was inclusive of labs, chest xray and ct head and abd/pelvis. WBC 16.4, +UTI, lactic acid 4, troponin ,0.02, BUN/ cre 18/ 0.76. CT head 06/18/15: diffuse atrophy unchanged. No acute intracranial findings ct abd/ pelvis with IV contrast: 06/18/15 Conclusion: 1. Chronic nonspecific urinary bladder wall thickening. Bladder collapsed with Putnam catheter in place. 2.Chronic bilateral mid to lower zone groundglass opacity. 3. Nonobstructing left renal calculus. 4. Distended rectum Pt admitted and fluid and abx ordered. 06/18: Drowsy, easily arousable. On mechanical ventilation via tracheostomy. Tachypneic. Resting tremor noted. 06/19: Drowsy, arousable. On mechanical ventilation via tracheostomy. 06/20: Drowsy, arousable. Remains on mechanical ventilation via tracheostomy. We'll repeat blood cultures, UA and urine cultures. Fluconazole IV added in view of yeast in urine. 07/06: Reconsulted as patient return to the ventilator on a right ventricular due to tachypnea. Low-grade temperatures. Tolerating tube feeding. Extremity encephalopathic demented patient with difficult neurological examination. 07/07: Status post chest tube placement by IR for right pneumothorax 07/06. Afebrile. Tolerating tube feeds. Positive BM. Currently tachypneic on the ventilator. Does not appear to be any acute distress. 07/08: Afebrile. Tolerating tube feeding. He is comfortable currently on CPAP trials 11/10. Positive BM. 07/09: Afebrile. Tolerating tube feeding. Appears comfortable on T bar. Positive BM. 07/10: Afebrile. Eyes are open. Remained on T piece overnight. Tolerating tube feeding. 07/11: MAXIMUM TEMPERATURE 100. Currently 98.6. Eyes are open. On ACV overnight secondary to "tachypnea and sweating". Switching back to PSV trials today. Goal is T piece during daytime, CPAP at night. 07/12: No acute events overnight. On PSV 15/5 -attempt TP up to 6 hours today. No pneumothorax on chest x-ray 07/13: Placed back on full ventilator support for tachypnea. Otherwise clinically unchanged. No fever today 07/14: Patient was on T piece yesterday evening, placed back on PSV overnight, patient mechanical ventilation this morning. Patient appears to be struggling with mechanical ventilation. Patient placed back on PSV with improvement 07/15: Patient placed back on mechanical ventilation last evening due to respiratory rate. It was indicated patient was tachypnea can the 40s. Patient on mechanical ventilation this time with respiration rate mid 20s. Chest tube still in place without any output, chest x-ray still indicating resolution of pneumothorax. 07/16: Patient seen and examined today. Patient placed back on mechanical ventilation overnight due to respiratory rate. Even on mechanical ventilation patient has respiration rate in the 30s. Patient afebrile, blood pressure stable. Continue vent weaning 07/17: Patient seen and examined. Currently afebrile. Currently on CPAP 15/5 @ 40%. Patient is awake with open mouth resting in bed in no apparent acute distress. Tolerating tube feeding. 2 bowel movements. 07/18: No neurological changes. Afebrile. 2 bowel moments. Tolerating tube feeding. We'll attempt TP trials today. On CPAP since 07/15 07/19 No events overnight. On CPAP with PS: 10, PEEP: 5 and FIO2 35%. Afebrile. On no sedation. 07/20 No events overnight. Tolerating CPAP. Afebrile. 07/21: Remains on CPAP. Attempt T piece trial today. Afebrile. One bowel movement. Tolerating tube feeding. 07/22: Afebrile. Positive BM. Tolerating tube feeding. Noted switched tracheostomy to #6 Shiley cuffed fenestrated. Neurologically unchanged 07/23: Afebrile. Positive BM. Tolerating tube feeding. Questionable leak in exchange trach. Place back on a rate/ACV overnight. Insufflated seems to be doing better at the present time. Will check chest x-ray. Possible he might need #6 XLT versus replacement of chronic #8 Shiley. 07/24: Tolerating TP today, RR in low 30s patient appears comfortable. No acute events overnight 07/25: Remains off the ventilator more than 36 hours now. Intermittently tachypneic probably breathing. Chest x-ray was clear yesterday. No acute events reported overnight. PEG not functioning per RN 08/02: Patient was transferred back to critical care service due to continuing ventilator management, tachypnea. Patient clinical status with no significant change. Patient with low-grade fever 100.2, 08/03: Patient seen and examined today. No significant change in clinical status. Patient still with chronic tachypnea. Patient afebrile now. 08/04: Patient seen and examined today. No change in clinical status. Patient still continues to have chronic tachypnea. Patient afebrile. Continue vent weaning 08/05: Patient seen and examined today. Patient had chest tube removed yesterday , chest x-ray shows redevelopment of pneumothorax. Chest tube replaced. Otherwise, patient still on ventilator with tachypnea. Afebrile 08/06: Patient seen and examined today. Patient went to have chest tube placed, repeat chest x-ray did not indicate any pneumothorax. No overnight events. We' ll need to pursue LTAC placement 08/07 No events overnight. On ventilator via trach. Afebrile. 08/08 Patient tolerated CPAP x4 hrs yesterday. Afebrile. On no sedation. 08/09 No events overnight. Tolerated CPAP x 12 hrs yesterday. Afebrile. 08/10 Patient tolerated TP's x 12 hrs yesterday back on ACV overnight. 08/11 No events overnight, currently on TP's with 40% FIO2. Afebrile. 08/12 On CPAP 10/5. Tolerated Tpiece 3 hours earlier today. Afebrile. 08/13 On CPAP 10/5. Not tolerating CPAP as well over last few days and RT notes challenge with suctioning respiratory secretions adequately. Discussing with healthcare proxy regarding exchange trach to 8.0. 08/14 Nursing and RT staff having continued difficulty suctioning respiratory secretions via 6.0 tracheostomy. KAREN Garcia did not consent to stoma dilation and trach upsize yesterday but said she would call back and let me know but no return call. Contacted again today and left a message. Afebrile. On CPAP 10/5. Brow furrowing on exam, appears to be in pain but pain not localizable. Tolerating tube feeds, had BM yesterday 08/15 Not tolerating CPAP today. Contacted healthcare surrogate again and discussed need for trach change. She consented and trach was dilated and up- sized to 8.0 Distal XLT to facilitate pulmonary toilet and to address volume leak. 08/16 No events overnight. Remains on ventilator via trach. Afebrile. Tolerating TF. 08/17 No events overnight. Afebrile. 08/18 Patient tolerated CPAP x 4 hrs yesterday. Afebrile.On ventilator via trach. 08/19 On CPAP 25/06. Temp max 99.3 08/20 Stenotrophomonas in sputum, started on Levaquin per ID. Temp max 99.8. On CPAP 20/09. Tube feeds were held because PEG was clogged but now PEG is functioning. 08/21 No events overnight. Afebrile. Remains on ventilator via trach. Has been tolerating CPAP trials for last 2 days. 08/22 No events overnight. Afebrile , Has been on CPAP all night with PS: 20, PEEP; 5 and FIO2 35%. 08/23 No events overnight. Remains on CPAP, T:99.9 08/24 No events overnight. On CPAP PS 10, PEEP; 5 and FIO2 35% overnight. Afebrile. 08/25 No events overnight. Afebrile. On CPAP overnight with PS 8, PEEP: 5 and FIO2 35%, afebrile. Tolerating TF. Subjective: 08/26 Tolerating Tpiece. Objective - Vital Signs Date Time Temp Pulse Resp B/P Pulse Ox O2 Delivery O2 Flow Rate FiO2 08/27/15 22:00 75 08/27/15 20:40 99 T-piece 6.00 50 08/27/15 20:00 97.9 16 114/75 Intake and Output 08/26/15 08/26/15 08/27/15 08:00 16:00 00:00 Intake Total 573 ml 1021 ml 561 ml Output Total 550 ml 800 ml Balance 23 ml 1021 ml -239 ml Result Diagram: 08/27/15 0600 08/27/15 0600 Other Results Laboratory Tests Test 08/26/15 04:44 White Blood Count 6.9 TH/MM3 Red Blood Count 3.51 MIL/MM3 Hemoglobin 9.6 GM/DL Hematocrit 31.0 % Mean Corpuscular Volume 88.2 FL Mean Corpuscular Hemoglobin 27.3 PG Mean Corpuscular Hemoglobin 30.9 % Concent Red Cell Distribution Width 14.7 % Platelet Count 213 TH/MM3 Mean Platelet Volume 10.4 FL Neutrophils (%) (Auto) 57.6 % Lymphocytes (%) (Auto) 20.6 % Monocytes (%) (Auto) 6.6 % Eosinophils (%) (Auto) 14.4 % Basophils (%) (Auto) 0.8 % Neutrophils # (Auto) 4.0 TH/MM3 Lymphocytes # (Auto) 1.4 TH/MM3 Monocytes # (Auto) 0.5 TH/MM3 Eosinophils # (Auto) 1.0 TH/MM3 Basophils # (Auto) 0.1 TH/MM3 CBC Comment DIFF FINAL Differential Comment Sodium Level 143 MEQ/L Potassium Level 4.4 MEQ/L Chloride Level 98 MEQ/L Carbon Dioxide Level 39.1 MEQ/L Anion Gap 6 MEQ/L Blood Urea Nitrogen 19 MG/DL Creatinine 0.48 MG/DL Estimat Glomerular Filtration 183 ML/MIN Rate Random Glucose 113 MG/DL Calcium Level 9.6 MG/DL Imaging Last Impressions Chest X-Ray 08/25/15 0600 Signed Impressions: Service Date/Time: Tuesday, August 25, 2015 02:35 - CONCLUSION: No significant change has occurred. Jeramie Manjarrez MD Tunnelled Chest Tube Removal 08/05/15 1100 Signed Impressions: Service Date/Time: Wednesday, August 05, 2015 11:00 - CONCLUSION: Uncomplicated chest tube removal. Blaine Jackson MD Chest Tube Change 07/31/15 0000 Signed Impressions: Service Date/Time: Friday, July 31, 2015 14:34 - CONCLUSION: Uncomplicated reposition of previously placed chest tube as above. Blaine Jackson MD Chest Tube Insertion 07/30/15 0000 Signed Impressions: Service Date/Time: July 14:50 - CONCLUSION: Uncomplicated chest tube placement as above. Blaine Jackson MD Catheter Change 07/27/15 0000 Signed Impressions: Service Date/Time: Monday, July 27, 2015 14:43 - CONCLUSION: Uncomplicated gastrostomy tube exchange as above. Blaine Jackson MD Chest CT 07/11/15 0000 Signed Impressions: Service Date/Time: Saturday, July 11, 2015 09:49 - CONCLUSION: Scattered patchy densities significantly improved from previous study. Tiny anterior right basilar pneumothorax. Right-sided chest tube in good position. Néstor Matamoros MD Head CT 06/18/151902 Signed Impressions: Service Date/Time: June 19:31 - CONCLUSION: Diffuse atrophy unchanged. No acute intracranial findings. Kush Briscoe MD Abdomen/Pelvis CT 06/18/151902 Signed Impressions: Service Date/Time: , June 18, 2015 19:36 - CONCLUSION: 1. Chronic nonspecific urinary bladder wall thickening. Bladder collapsed with Putnam catheter in place. 2. Chronic bilateral mid to lower lung zone groundglass opacity. 3. Nonobstructing left renal calculus. 4. Distended rectum. Kush Briscoe MD Objective Remarks GENERAL: 54-year-old male, cachectic, on tpiece HEENT: NC/AT. PERRL. MMM dry and pink. NECK: No JVD. 8.0 Distal XLT trach in place CARDIAC: RRR. S1/S2. No S4. No murmurs, clicks gallops or rubs. LUNGS: Tachypneic with bilateral rhonchi but no accessory muscle use. Equal breath sounds bilat, no wheeze. ABDOMEN: S/NT/ND. Bowel sounds present. EXTREMITIES: pulses are equal bilaterally. 1+ pedal edema NEUROLOGY: Patient with significant contractures of the right lower extremity, upper extremities. Eyes open spontaneously. Muscle wasting face, bilateral upper and lower extremities Procedures 07/26- PEG replacement 07/29- right pigtail catheter placement for new pneumothorax 07/29 Date of Insertion: Jul 30, 2015 A/P Assessment and Plan Neuro/Psych: Toxic metabolic Encephalopathy - chronic Parkinson's disease Cognitive disorder/Underlying dementia Depression CT head 06/18/15: - diffuse atrophy unchanged. No acute intracranial findings Continue Sinemet 25/100 q8 via PEG, Seroquel 50 mg twice a day, olanzapine 5 mg a night, Klonopin 2 mg every 8 hours, Paxil 20 daily and Neurontin 300 mg twice a day. These are director long term care home meds, dose of antipsychotics have been titrated up slightly since admit. Continue Lortab when necessary pain and fentanyl patch 50 g every 3 days for pain management. Fentanyl bolus prn breakthrough pain or if needed for turning/ nursing care/etc. Resp: Acute on chronic respiratory failure Chronic trach, Pneumonia Right pneumothorax status post pigtail catheter (resolved) Continue with vent support keep sat >92%. Continue Tpiece as tolerated. Pulmonary Dr. Restrepo following. Pulm toilet, trach care. Exchanged to 8 Distal XLT on 08/15 to facilitate suctioning, trach care. Bronchodilators ( DuoNeb) Status post chest tube replacement by interventional radiology on 07/30, chest tube removed 08/04, repeat films do not indicate any pneumothorax CXR from 08/24 - no significant changes compared to prior study. Trach in place. Cardiac History of orthostasis History of CAD, HLP, Hypertension Continue Midodrine 5 mg twice a day Monitor HR and BP keep MAP>65mmHg GI: Malnutrition/protein calorie - moderate Status post PEG Hemorrhoids Gastroesophageal reflux disease - Tolerating Jevity 1.5 at 60 cc an hour per nutrition recommendations - Currently Prevacid 30 mg per PEG tube daily for GERD - Current Colace/senna for bowel regimen. FEN/renal: Nonobstructing left renal calculus - Monitor renal function, I/O's. electrolytes replacement per protocol. ID: Candiduria (cele tropicalis urine cx 08/17) ESBL positive Klebsiella/Pseudomonas pneumonia Stenotrophomonas in sputum 08/17 MRSA colonization sepsis UTI Klebsiella ESBL positive (has been treated) Watching off abx per ID: Diflucan 08/17-08/26 . Levaquin 08/20--08/26 for Stenotrophomonas. ID signed off, reconsult if needed. Completed course of meropenem for 08/11-08/20 for Klebsiella ESBL/pseudomonas pneumonia. On Lactinex tid Urine cx 08/17 - cele tropicalis Blood culture 08/17 negative sputum culture 08/17 - pseudomonas and Stenotrophomonas maltophilia. Urine culture: 08/02 Klebsiella pneumonia ESBL positive Urine culture: 08/02 Cele Tropicalis, C. Glabrata Sputum culture: 08/02 Pseudomonas, Klebsiella pneumonia ESBL positive Blood culture: 08/02 yeast species, Cele glabrata, Cele tropicalis - History of Multidrug resistant UTI- ESBL 02/19/15 , MRSA + 03/20/15 - Cele glabrata in urine 03/19/15 - Rechecked blood, sputum and urine cultures 07/06 no growth - 06/17 - blood cultures 2 - CONS/staph epi - 06/17 - sputum - ESBL positive Klebsiella/Pseudomonas Treated 15 days with tobramycin aerosols twice a day. - 06/17 - urine - C. glabrata/tropicalis - treated with Diflucan Endo: Euglycemic. Not requiring sliding scale Heme Anemia - Monitor CBC MSK Bilateral lower extremity Contractures Stage II sacral decubitus present on admission - Wound care evaluate and treat - Continue physical therapy Prophylaxis - GI - Prevacid - DVT - SCDs/ Lovenox. maintenance manager eval for LTAC placement CCT 30 mins Leena Mistry MD Aug 27, 2015 22:37
[2015-08-28] VITALS (15 sets, daily range): BP systolic 94–120; BP diastolic 46–84; PULSE 75–94; RESP 16–20; TEMP 98.1–98.9; O2SAT 97–100
[2015-08-28] MEDS: CARBIDOPA/LEVODOPA 25 MG/100 MG TAB GT SCH ×3 (06:04→19:25)
[2015-08-28] MEDS: HYOSCYAMINE SOLN 0.125 MG/ML 15 ML BTL PO SCH ×3 (06:04→19:25)
[2015-08-28] MEDS: clonazePAM 1 MG TAB PO SCH ×3 (06:04→19:24)
[2015-08-28] MEDS: REMOVE OLD PATCH TD SCH (08:00)
[2015-08-28] MEDS: SODIUM CHLORIDE 0.9% FLUSH 5 ML FLUSH IVF SCH ×2 (09:00→19:25)
[2015-08-28] MEDS: ARTIFICIAL TEARS OPTH SOLN 15 ML BTL EACH EYE SCH ×3 (09:00→17:39)
[2015-08-28] MEDS: COLLAGENASE OINT 30 GM TUBE TOP SCH (09:00)
[2015-08-28] MEDS: CHLORHEXIDINE 0.12% (ORAL KIT) 15 ML CUP MT SCH ×2 (09:32→19:24)
[2015-08-28] MEDS: SENNOSIDES SYRUP 8.8 MG/5 ML CUP PO SCH (09:32)
[2015-08-28] MEDS: GABAPENTIN 300 MG CAP G-TUBE SCH ×2 (09:32→19:24)
[2015-08-28] MEDS: MIDODRINE 5 MG TAB G-TUBE SCH ×2 (09:32→19:24)
[2015-08-28] MEDS: PARoxetine HCL 20 MG TAB G-TUBE SCH (09:33)
[2015-08-28] MEDS: QUEtiapine FUMARATE 25 MG TAB G-TUBE SCH ×2 (09:33→19:24)
[2015-08-28] MEDS: LANSOPRAZOLE SOLUTAB 30 MG TAB NG SCH (09:33)
[2015-08-28] MEDS: LACTOBACILLUS ACIDOPHILUS TAB PO SCH ×3 (09:33→17:39)
[2015-08-28] MEDS: fentaNYL 50 MCG/HR PATCH TD SCH (09:34)
--- NOTE | 2015-08-28 12:43 | HHI.PR ---
Subjective Remarks On a T Bar Fio2 35%,and tolerated it fro 6 hrs.CPAP at HS. Remains Lethargic. On tube feeds.Good output. No change overall. . Objective Vital Signs Date Time Temp Pulse Resp B/P Pulse Ox O2 Delivery O2 Flow Rate FiO2 08/28/15 10:00 84 08/28/15 09:49 97 T-piece 5.00 50 08/28/15 08:00 98.9 84 20 120/77 98 08/28/15 08:00 50 08/28/15 08:00 80 08/28/15 06:00 75 08/28/15 04:00 98.1 79 16 107/46 99 08/28/15 04:00 75 08/28/15 04:00 50 08/28/15 02:00 75 08/28/15 00:00 98.3 79 16 94/58 99 08/28/15 00:00 75 08/28/15 00:00 50 08/27/15 22:00 75 08/27/15 20:40 99 T-piece 6.00 50 08/27/15 20:00 75 08/27/15 20:00 97.9 79 16 114/75 99 08/27/15 20:00 50 08/27/15 18:00 75 08/27/15 16:00 50 08/27/15 16:00 98.1 77 16 96/62 99 08/27/15 16:00 77 08/27/15 14:00 81 I/O 08/27/15 08/27/15 08/27/15 08/28/15 08/28/15 08/28/15 07:00 15:00 23:00 07:00 15:00 23:00 Intake Total 377 ml 454 ml 515 ml 500 ml Output Total 350 ml 750 ml 550 ml 700 ml Balance 27 ml -296 ml -35 ml -200 ml IV Total 61 ml 54 ml 77 ml 50 ml Tube Feeding 316 ml 300 ml 313 ml 325 ml Tube Irrigant 100 ml 125 ml 125 ml Output Urine Total 350 ml 750 ml 550 ml 700 ml # Bowel Movements 1 1 1 Result Diagram: 08/27/15 0600 08/27/15 0600 Objective Remarks This is a thin white male who in on the vent, Awake but no response to commands ,with a trach tube in place. HEENT: Pupils are equal and reactive to light.Throat clear. CHEST: Occ Basal crackles. Decreased breath sounds . CARDIOVASCULAR: S1 and S2 is normal. ABDOMEN: Soft, nondistended. He has a PEG tube in place. EXTREMITIES: No edema.muscle wasting. NEURO: Lethargic and Does not move his extremities .Reflexes not elicited. Assessment and Plan Assessment and Plan IMPRESSION 1. Respiratory failure, ventilator dependent 2. Sepsis, resolving. 3. UTI 4. Tracheobronchitis 5. Parkinson's disease 6. Dementia. 7. Severe Deconditioning. 8. Left Pneumothorax. Resolved. Plan : 1. CPAP/PSV 5/10, FIO2 35 % at HS 7 PM to 7 am. 2. Nebs qid , duoneb. 3. Cont Tube feeds at 60 CC 4. T Bar 40 % for 12 hrs if tolerating. 5. Levsin .125 mg tid via peg. 6. Trach toilet and lavage. 8. Lovenox 40 Mg S/Q daily. Darrne Kiser MD Aug 28, 2015 12:43
--- NOTE | 2015-08-28 15:45 | HHI.HCPN ---
Reason for visit a. To assist with evaluation and management of symptoms including: dyspnea ; pain b. To assist medical decision maker(s) with: better understanding of current medical conditions; weighing benefits/burdens of medical treatment options; making medical treatment decisions. . Subjective/Interval History Patient remains minimally responsive in the MICU. Tolerating t-tube. No improvement in encephalopathy. Afebrile HR stable. Still tachypnic but improving. Tolerating tube feedings. Urine output adequate. Stooling. Labs are relatively stable . Renal function good. Last albumin 2.8. urine C&S positive Heena tropicalis. Nursing pain level scores are "0." Contineus on 50 mcg/hr fentanyl patch. No prn opiates since 08/18/15. . Continues on scheduled clonazepam. From Dr. Pickard's initial palliative care consultation of 07/15/15... 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 The patient has had multiple hospitalizations which included stays in the intensive care unit for various infections. He had a urinary tract infection with multidrug resistant ESBL on 02/19/15. He was last MRSA positive on . skilled nursing notes from the facility indicate that his current baseline is: * Bedbound status * Unable to communicate * NPO -- on tube feedings at 85 cc /hr * Dependent for all ADLs In the emergency Department, initial vital signs were as follows > temperature 100.9; pulse 98; respiratory rate 38; blood pressure 104/61; pulse oximetry 99% on room air via trach collar. Initial physical examination the emergency department revealed the following > patient was frail and chronically ill-appearing. Skin showed no obvious wounds. Head, eyes, ENT, neck, cardiovascular, respiratory, gastrointestinal exams were unremarkable. Neurologically, the patient was unable to answer questions or respond or follow commands. Initial diagnostic testing revealed the following: * CBC showed WBC 16.4; hemoglobin 11.3; platelet count 176 * Coagulation profile showed PT 11.4; INR 1.1; PTT 29.4 * Chemistry profile showed sodium 141; potassium 4.5; chloride 105; CO2 27.4; anion gap 9; BUN 21; creatinine 0.85; estimated GFR 95; glucose 116; calcium 9.6 * Liver function tests showed total bilirubin 0.6; AST 23; ALT 38; alkaline phosphatase 59; total protein 7.5; albumen 3.2 * Urinalysis was remarkable for large occult blood; large leukocyte esterase; few bacteria; few yeast with hyphae; few budding yeast. * Arterial blood gases on trach mask at 40% showed pH 7.53; PCO2 33; PaO2 108; bicarbonate 27; base excess 4.2 * Chest x-ray showed no acute cardiopulmonary disease * Head CT showed diffuse atrophy unchanged from prior exam. * CT of the abdomen and pelvis showed chronic nonspecific urinary bladder wall thickening; bladder collapsed with Valdez catheter in place; chronic bilateral mid to lower lung zone groundglass opacity; nonobstructing left renal calculus; distended rectum. * The emergency room doctor diagnosed severe sepsis. The patient was given 2 L of IV fluid and broad-spectrum antibiotic-coated verge in the emergency department. Cultures were obtained. Valdez catheter was changed. As the patient was markedly tachypneic with increased work of breathing and use of accessory muscles during his stay in the emergency department. He was placed on CPAP and subsequently intubated and placed on mechanical ventilation. Critical care was consulted and the patient was admitted to the intensive care unit. Further examination revealed a stage II 6 x 2 cm sacral wound. Urine culture on admission grew out Heena of 2 different species. Sputum culture grew out Klebsiella pneumonia ESBL positive as well as pseudomonas. Blood culture grew out coag-negative staph and staph epidermidis. Both infectious disease and pulmonology were consulted. The patient slowly improved, was extubated, and critical care signed off on . However, on 07/06 the patient had to be placed back on the ventilator. A right sided pneumothorax was noted and patient underwent chest tube placement by interventional radiology. Pneumothorax has appeared to resolve on most recent chest x-ray. Sputum, blood, and urine cultures from 07/07/15 are all negative. White blood count is currently down to 7. Hemoglobin is 10.6. Albumen is suboptimal at 3.0. Renal function is normal. He is currently off anti-biotics. Current pain regimen includes the following: * Fentanyl patch; 50 g per hour * Morphine sulfate 5 mg sublingually or via the tube every 4 hours when necessary (he has been using 1-2 doses of this per day) The patient was tolerating CPAP earlier today and has since been removed from the ventilator and is on a T-piece at 40% FI02. At time of my visit, eyes are open. He intermittently tracks. He cannot follow commands and makes no attempt to interact. . Family/friend interactions Called daughterRadha. Left message on voice mail for her to call me. . Advance Directives Living Will: Never completed Health Care Surrogate: Copy in medical record Durable Power of Access Registrar: Never completed Advance Directive Specifics Date completed: Patient visited Scott Mack, Access Registrar in March and again in November 2014. The patient was encouraged to complete Advance directive documents but never did them. Dr. Pickard personally called Mr. Mack ([phone]) to check for advance directives. Health Care Surrogate(s): The patient completed a health care surrogate document dated 09/02/14 desigating his friend Bola Nolasco as surrogate. Mr. Nolasco was not aware of this and has declined serving in that capacity. The patient has an adult daughter -- Radha Foreman who is willing to serve as health care proxy decision maker. Patient's motherTeresa is aware. Objective Vital Signs Date Time Temp Pulse Resp B/P Pulse Ox O2 Delivery O2 Flow Rate FiO2 08/28/15 14:00 94 08/28/15 12:00 98.7 94 16 109/71 98 08/28/15 12:00 94 08/28/15 12:00 50 08/28/15 10:00 84 08/28/15 09:49 97 T-piece 5.00 50 08/28/15 08:00 98.9 84 20 120/77 98 08/28/15 08:00 50 08/28/15 08:00 80 08/28/15 06:00 75 08/28/15 04:00 98.1 79 16 107/46 99 08/28/15 04:00 75 08/28/15 04:00 50 08/28/15 02:00 75 08/28/15 00:00 98.3 79 16 94/58 99 08/28/15 00:00 75 08/28/15 00:00 50 08/27/15 22:00 75 08/27/15 20:40 99 T-piece 6.00 50 08/27/15 20:00 75 08/27/15 20:00 97.9 79 16 114/75 99 08/27/15 20:00 50 08/27/15 18:00 75 08/27/15 16:00 50 08/27/15 16:00 98.1 77 16 96/62 99 08/27/15 16:00 77 Intake & Output 08/28/15 08/28/15 07:00 19:00 Intake Total 1015 ml Output Total 1250 ml Balance -235 ml IV Total 127 ml Tube Feeding 638 ml Tube Irrigant 250 ml Output Urine Total 1250 ml # Bowel Movements 2 . Physical Exam CONSTITUTIONAL/GENERAL: This is a thin, pale, contracted, chronically ill appearing male on trach t-tube in the MICU. No apparent distress. Eyes open but unresponsive. TUBES/LINES/DRAINS: Trach; valdez; SCDs; PIV; PEG tube; scd's SKIN: No jaundice, rashes, or lesions. No wounds seen anteriorly -- did not examine sacral area. Skin temperature appropriate. Not diaphoretic. NECK: Tracheostomy. CARDIOVASCULAR: Regular rate and rhythm without murmurs, gallops, or rubs. No JVD. Peripheral pulses symmetric. RESPIRATORY/CHEST: Tachypneic with symmetric, unlabored respirations. Some coarse breath sounds bilaterally. Breath sounds equal bilaterally and diminished at bases. GASTROINTESTINAL: Abdomen soft, non-tender, nondistended. No guarding. Bowel sounds present. GENITOURINARY: Without palpable bladder distension. Valdez catheter in place. MUSCULOSKELETAL: Extremities without clubbing, cyanosis, or edema. Contractures. No calf tenderness. No mottling . NEUROLOGICAL: Eyes open but does not track. Unable to follow even simple commands. No spontaneous movements seen. PSYCHIATRIC: Unable to assess due to level of responsiveness. . Diagnostic Tests Laboratory Laboratory Tests Test 08/26/15 08/27/15 04:44 06:00 White Blood Count 6.9 TH/MM3 7.8 TH/MM3 (4.0-11.0) (4.0-11.0) Red Blood Count 3.51 MIL/MM3 3.37 MIL/MM3 (4.50-5.90) (4.50-5.90) Hemoglobin 9.6 GM/DL 9.1 GM/DL (13.0-17.0) (13.0-17.0) Hematocrit 31.0 % 29.8 % (39.0-51.0) (39.0-51.0) Mean Corpuscular Volume 88.2 FL 88.4 FL (80.0-100.0) (80.0-100.0) Mean Corpuscular Hemoglobin 27.3 PG 26.9 PG (27.0-34.0) (27.0-34.0) Mean Corpuscular Hemoglobin 30.9 % 30.4 % Concent (32.0-36.0) (32.0-36.0) Red Cell Distribution Width 14.7 % 14.4 % (11.6-17.2) (11.6-17.2) Platelet Count 213 TH/MM3 230 TH/MM3 (150-450) (150-450) Mean Platelet Volume 10.4 FL 10.4 FL (7.0-11.0) (7.0-11.0) Neutrophils (%) (Auto) 57.6 % 64.2 % (16.0-70.0) (16.0-70.0) Lymphocytes (%) (Auto) 20.6 % 15.1 % (9.0-44.0) (9.0-44.0) Monocytes (%) (Auto) 6.6 % (0.0-8.0) 5.4 % (0.0-8.0) Eosinophils (%) (Auto) 14.4 % 14.7 % (0.0-4.0) (0.0-4.0) Basophils (%) (Auto) 0.8 % (0.0-2.0) 0.6 % (0.0-2.0) Neutrophils # (Auto) 4.0 TH/MM3 5.0 TH/MM3 (1.8-7.7) (1.8-7.7) Lymphocytes # (Auto) 1.4 TH/MM3 1.2 TH/MM3 (1.0-4.8) (1.0-4.8) Monocytes # (Auto) 0.5 TH/MM3 0.4 TH/MM3 (0-0.9) (0-0.9) Eosinophils # (Auto) 1.0 TH/MM3 1.2 TH/MM3 (0-0.4) (0-0.4) Basophils # (Auto) 0.1 TH/MM3 0.0 TH/MM3 (0-0.2) (0-0.2) CBC Comment DIFF FINAL DIFF FINAL Differential Comment Sodium Level 143 MEQ/L 143 MEQ/L (136-145) (136-145) Potassium Level 4.4 MEQ/L 4.7 MEQ/L (3.5-5.1) (3.5-5.1) Chloride Level 98 MEQ/L 99 MEQ/L (98-107) (98-107) Carbon Dioxide Level 39.1 MEQ/L 40.5 MEQ/L (21.0-32.0) (21.0-32.0) Anion Gap 6 MEQ/L (5-15) 4 MEQ/L (5-15) Blood Urea Nitrogen 19 MG/DL (7-18) 23 MG/DL (7-18) Creatinine 0.48 MG/DL 0.49 MG/DL (0.60-1.30) (0.60-1.30) Estimat Glomerular Filtration 183 ML/MIN 179 ML/MIN Rate (>89) (>89) Random Glucose 113 MG/DL 114 MG/DL (74-106) (74-106) Calcium Level 9.6 MG/DL 9.7 MG/DL (8.5-10.1) (8.5-10.1) . Result Diagram: 08/27/15 0600 08/27/15 06 Imaging Last Impressions Chest X-Ray 08/25/15 0600 Signed Impressions: Service Date/Time: Tuesday, August 25, 2015 02:35 - CONCLUSION: No significant change has occurred. Jeramie Manjarrez MD Tunnelled Chest Tube Removal 08/05/15 1100 Signed Impressions: Service Date/Time: Wednesday, August 05, 2015 11:00 - CONCLUSION: Uncomplicated chest tube removal. Blaine Jackson MD Chest Tube Change 07/31/15 0000 Signed Impressions: Service Date/Time: Friday, July 31, 2015 14:34 - CONCLUSION: Uncomplicated reposition of previously placed chest tube as above. Blaine Jackson MD Chest Tube Insertion 07/30/15 0000 Signed Impressions: Service Date/Time: July 14:50 - CONCLUSION: Uncomplicated chest tube placement as above. Blaine Jackson MD Catheter Change 07/27/15 0000 Signed Impressions: Service Date/Time: Monday, July 27, 2015 14:43 - CONCLUSION: Uncomplicated gastrostomy tube exchange as above. Blaine Jackson MD Chest CT 07/11/15 Signed Impressions: Service Date/Time: Saturday, July 11, 2015 09:49 - CONCLUSION: Scattered patchy densities significantly improved from previous study. Tiny anterior right basilar pneumothorax. Right-sided chest tube in good position. Néstor Matamoros MD Head CT 06/18/151902 Signed Impressions: Service Date/Time: June 19:31 - CONCLUSION: Diffuse atrophy unchanged. No acute intracranial findings. Kush Briscoe MD Abdomen/Pelvis CT 06/18/151902 Signed Impressions: Service Date/Time: June 19:36 - CONCLUSION: 1. Chronic nonspecific urinary bladder wall thickening. Bladder collapsed with Valdez catheter in place. 2. Chronic bilateral mid to lower lung zone groundglass opacity. 3. Nonobstructing left renal calculus. 4. Distended rectum. Kush Briscoe MD . Procedures * Mechanical ventilation * Chest tube placement on right 07/07/15 * Chest tube removal 07/17/15 . Assessment and Plan Disease Oriented Problem List: (1) Acute respiratory failure Comment: Secondary to pneumonia. Able to get on CPAP for a while, but unable eliminate vent dependence long enough to get out of ICU. . (2) Pneumonia Comment: Cultures have been positive for Pseudomonas AND Klebsiella ESBL ANd Stenotrophomonas during hospitalization . (3) Pneumothorax on right Comment: Resolved . (4) Septic shock Comment: Blood cx have been postiive for Staph coag neg and Staph epidermidis . (5) Parkinson disease (6) Moderate malnutrition (7) UTI (urinary tract infection) Comment: Cultures have been positive for Heena (tropicalis and glabrata) (8) Chronic respiratory failure Symptom Scale: (1) Pain 0-10 Scale: Unable to quantify Comment: Sources of pain might include wound, prolonged bedbound status, contractures, restraints, valdez, vascular access catheters. Appears comfortable on current regimen. ,l (2) Dyspnea 0-10 Scale: Unable to quantify Comment: Frequently tachypnic. Now tolerating t-tube. . Pertinent Non-Medical Issues Psychosocial: [facility] halfway resident. 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 Severe dementia. Daughter, mother, and brother are involved. Spiritual: Orthodox. Has been a member for the [employer] and members have provided both community support and spiritual support in the past. Legal: No advance directives. Daughter (Radha Foreman) is legal proxy and lives 4 hours away. can be quite difficult to contact by phone. Ethical issues impacting care: None. . Important Contacts * Radha Foreman (daughter and proxy) [phone] * Teresa Perea (mother -- lives in [place]) [phone] . Prognosis Patient has end stage Parkinson's with end stage dementia. 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 He is a chronic trach/PEG tube patient with contractures and skin breakdown. Should family continue to want aggressive care, he will continue to go back and forth from facility to hospital until such time that we are no longer able to overcome the sepsis. Patient is hospice eligible whenever family is ready to transition to "comfort measures only." . Code Status: Full Code Plan * Code status: FULL CODE * Decision making: Patient is incapacitated and will not regain capacity. There is no designated health care surrogate. Daughter, Radha Foreman, is legal proxy under [place] statutes but can be hard to contact at times. * 08/28/15 - Called to speak with Radha hunter via telephone to provide medical update and review goals of medical treatment. No answer. Left message to call me. * Pain: Sources of pain are unclear as patient in non communicative, but would include prolonged bedbound status; tubes and lines; contractures; wound; etc. Current regimen appears to adequate . No further recommendations at this time. * Dyspnea: Dyspnea was due to pneumonia and pneumothorax. Was very challenging to get off vent. Now tolerating T-tube, but historically, he is likely to decompensate again in a short period of time. * Malnutrition: Tolerating tube feeds, but albumin remains low. * Agitation/Behavioral issues: Adequately controlled with current neuroleptic and benzo regimen. No further recommendations at this time. * Palliative care will try and meet with Radha (proxy) in person when she next comes to visit. She continues to insist on aggressive goals in spite of the incredibly bleak prognosis. . . . Attestation To help prompt me to consider important information that might be impacting today's encounter and assessment, information from prior notes written by myself or my colleagues may have been "brought forward" into today's note. My signature on this note, however, is an attestation that I personally performed the exam, history, and/or decision-making noted today, and, unless otherwise indicated, the interactions with patient, family, and staff as well as the review of records all occurred today. I also attest that the listed assessment and stated plan reflect my best clinical judgment today based on the combination of historical information, prior notes, and today's exam/ interactions. When time spent is documented, it refers only to time spent today by the signer, or if indicated, combined time spent today by collaborating physician/nurse practitioner. . Pascual Pickard MD Aug 28, 2015 15:45
--- NOTE | 2015-08-28 17:47 | HHI.CCPN ---
Subjective Remarks/Hospital Course 06/17: Pt is a 54 yr man with multiple medial problems including Parkinson's disease, advanced dementia, hyponatremia, anxiety, pneumonia, GERD, cognitive disorder, and multidrug resistant UTI- ESBL02/19/15 , who resides in a group home. Pt by report was found by staff in group home to be less alert and having respiratory difficultly and fevers. Pt was brought to ED adn placed on ventilator. His workup was inclusive of labs, chest xray and ct head and abd/pelvis. WBC 16.4, +UTI, lactic acid 4, troponin ,0.02, BUN/ cre 18/ 0.76. CT head 06/18/15: diffuse atrophy unchanged. No acute intracranial findings ct abd/ pelvis with IV contrast: 06/18/15 Conclusion: 1. Chronic nonspecific urinary bladder wall thickening. Bladder collapsed with Putnam catheter in place. 2.Chronic bilateral mid to lower zone groundglass opacity. 3. Nonobstructing left renal calculus. 4. Distended rectum Pt admitted and fluid and abx ordered. 06/18: Drowsy, easily arousable. On mechanical ventilation via tracheostomy. Tachypneic. Resting tremor noted. 06/19: Drowsy, arousable. On mechanical ventilation via tracheostomy. 06/20: Drowsy, arousable. Remains on mechanical ventilation via tracheostomy. We'll repeat blood cultures, UA and urine cultures. Fluconazole IV added in view of yeast in urine. 07/06: Reconsulted as patient return to the ventilator on a right ventricular due to tachypnea. Low-grade temperatures. Tolerating tube feeding. Extremity encephalopathic demented patient with difficult neurological examination. 07/07: Status post chest tube placement by IR for right pneumothorax 07/06. Afebrile. Tolerating tube feeds. Positive BM. Currently tachypneic on the ventilator. Does not appear to be any acute distress. 07/08: Afebrile. Tolerating tube feeding. He is comfortable currently on CPAP trials 11/10. Positive BM. 07/09: Afebrile. Tolerating tube feeding. Appears comfortable on T bar. Positive BM. 07/10: Afebrile. Eyes are open. Remained on T piece overnight. Tolerating tube feeding. 07/11: MAXIMUM TEMPERATURE 100. Currently 98.6. Eyes are open. On ACV overnight secondary to "tachypnea and sweating". Switching back to PSV trials today. Goal is T piece during daytime, CPAP at night. 07/12: No acute events overnight. On PSV 15/5 -attempt TP up to 6 hours today. No pneumothorax on chest x-ray 07/13: Placed back on full ventilator support for tachypnea. Otherwise clinically unchanged. No fever today 07/14: Patient was on T piece yesterday evening, placed back on PSV overnight, patient mechanical ventilation this morning. Patient appears to be struggling with mechanical ventilation. Patient placed back on PSV with improvement 07/15: Patient placed back on mechanical ventilation last evening due to respiratory rate. It was indicated patient was tachypnea can the 40s. Patient on mechanical ventilation this time with respiration rate mid 20s. Chest tube still in place without any output, chest x-ray still indicating resolution of pneumothorax. 07/16: Patient seen and examined today. Patient placed back on mechanical ventilation overnight due to respiratory rate. Even on mechanical ventilation patient has respiration rate in the 30s. Patient afebrile, blood pressure stable. Continue vent weaning 07/17: Patient seen and examined. Currently afebrile. Currently on CPAP 15/5 @ 40%. Patient is awake with open mouth resting in bed in no apparent acute distress. Tolerating tube feeding. 2 bowel movements. 07/18: No neurological changes. Afebrile. 2 bowel moments. Tolerating tube feeding. We'll attempt TP trials today. On CPAP since 07/15 07/19 No events overnight. On CPAP with PS: 10, PEEP: 5 and FIO2 35%. Afebrile. On no sedation. 07/20 No events overnight. Tolerating CPAP. Afebrile. 07/21: Remains on CPAP. Attempt T piece trial today. Afebrile. One bowel movement. Tolerating tube feeding. 07/22: Afebrile. Positive BM. Tolerating tube feeding. Noted switched tracheostomy to #6 Shiley cuffed fenestrated. Neurologically unchanged 07/23: Afebrile. Positive BM. Tolerating tube feeding. Questionable leak in exchange trach. Place back on a rate/ACV overnight. Insufflated seems to be doing better at the present time. Will check chest x-ray. Possible he might need #6 XLT versus replacement of chronic #8 Shiley. 07/24: Tolerating TP today, RR in low 30s patient appears comfortable. No acute events overnight 07/25: Remains off the ventilator more than 36 hours now. Intermittently tachypneic probably breathing. Chest x-ray was clear yesterday. No acute events reported overnight. PEG not functioning per RN 08/02: Patient was transferred back to critical care service due to continuing ventilator management, tachypnea. Patient clinical status with no significant change. Patient with low-grade fever 100.2, 08/03: Patient seen and examined today. No significant change in clinical status. Patient still with chronic tachypnea. Patient afebrile now. 08/04: Patient seen and examined today. No change in clinical status. Patient still continues to have chronic tachypnea. Patient afebrile. Continue vent weaning 08/05: Patient seen and examined today. Patient had chest tube removed yesterday , chest x-ray shows redevelopment of pneumothorax. Chest tube replaced. Otherwise, patient still on ventilator with tachypnea. Afebrile 08/06: Patient seen and examined today. Patient went to have chest tube placed, repeat chest x-ray did not indicate any pneumothorax. No overnight events. We' ll need to pursue LTAC placement 08/07 No events overnight. On ventilator via trach. Afebrile. 08/08 Patient tolerated CPAP x4 hrs yesterday. Afebrile. On no sedation. 08/09 No events overnight. Tolerated CPAP x 12 hrs yesterday. Afebrile. 08/10 Patient tolerated TP's x 12 hrs yesterday back on ACV overnight. 08/11 No events overnight, currently on TP's with 40% FIO2. Afebrile. 08/12 On CPAP 10/5. Tolerated Tpiece 3 hours earlier today. Afebrile. 08/13 On CPAP 10/5. Not tolerating CPAP as well over last few days and RT notes challenge with suctioning respiratory secretions adequately. Discussing with healthcare proxy regarding exchange trach to 8.0. 08/14 Nursing and RT staff having continued difficulty suctioning respiratory secretions via 6.0 tracheostomy. KAREN Garcia did not consent to stoma dilation and trach upsize yesterday but said she would call back and let me know but no return call. Contacted again today and left a message. Afebrile. On CPAP 10/5. Brow furrowing on exam, appears to be in pain but pain not localizable. Tolerating tube feeds, had BM yesterday 08/15 Not tolerating CPAP today. Contacted healthcare surrogate again and discussed need for trach change. She consented and trach was dilated and up- sized to 8.0 Distal XLT to facilitate pulmonary toilet and to address volume leak. 08/16 No events overnight. Remains on ventilator via trach. Afebrile. Tolerating TF. 08/17 No events overnight. Afebrile. 08/18 Patient tolerated CPAP x 4 hrs yesterday. Afebrile.On ventilator via trach. 08/19 On CPAP 25/06. Temp max 99.3 08/20 Stenotrophomonas in sputum, started on Levaquin per ID. Temp max 99.8. On CPAP 20/09. Tube feeds were held because PEG was clogged but now PEG is functioning. 08/21 No events overnight. Afebrile. Remains on ventilator via trach. Has been tolerating CPAP trials for last 2 days. 08/22 No events overnight. Afebrile , Has been on CPAP all night with PS: 20, PEEP; 5 and FIO2 35%. 08/23 No events overnight. Remains on CPAP, T:99.9 08/24 No events overnight. On CPAP PS 10, PEEP; 5 and FIO2 35% overnight. Afebrile. 08/25 No events overnight. Afebrile. On CPAP overnight with PS 8, PEEP: 5 and FIO2 35%, afebrile. Tolerating TF. 08/26 Tolerating Tpiece. Subjective: 08/27 Tolerated Tpiece yesterday and overnight. However this evening desaturated and was placed back on CPAP. Dr. Mistry attempted to update daughter Radha Foreman and discuss his overall poor prognosis for recovery, but call got disconnected midway through call and could not reach her back Objective - Vital Signs Date Time Temp Pulse Resp B/P Pulse Ox O2 Delivery O2 Flow Rate FiO2 08/28/15 14:00 94 08/28/15 12:00 98.7 16 109/71 98 08/28/15 12:00 50 08/28/15 09:49 T-piece 5.00 Intake and Output 08/27/15 08/27/15 08/28/15 08:00 16:00 00:00 Intake Total 377 ml 454 ml 515 ml Output Total 350 ml 750 ml 550 ml Balance 27 ml -296 ml -35 ml Result Diagram: 08/27/15 0600 08/27/15 06 Other Results Laboratory Tests Test 08/26/15 04:44 White Blood Count 6.9 TH/MM3 Red Blood Count 3.51 MIL/MM3 Hemoglobin 9.6 GM/DL Hematocrit 31.0 % Mean Corpuscular Volume 88.2 FL Mean Corpuscular Hemoglobin 27.3 PG Mean Corpuscular Hemoglobin 30.9 % Concent Red Cell Distribution Width 14.7 % Platelet Count 213 TH/MM3 Mean Platelet Volume 10.4 FL Neutrophils (%) (Auto) 57.6 % Lymphocytes (%) (Auto) 20.6 % Monocytes (%) (Auto) 6.6 % Eosinophils (%) (Auto) 14.4 % Basophils (%) (Auto) 0.8 % Neutrophils # (Auto) 4.0 TH/MM3 Lymphocytes # (Auto) 1.4 TH/MM3 Monocytes # (Auto) 0.5 TH/MM3 Eosinophils # (Auto) 1.0 TH/MM3 Basophils # (Auto) 0.1 TH/MM3 CBC Comment DIFF FINAL Differential Comment Sodium Level 143 MEQ/L Potassium Level 4.4 MEQ/L Chloride Level 98 MEQ/L Carbon Dioxide Level 39.1 MEQ/L Anion Gap 6 MEQ/L Blood Urea Nitrogen 19 MG/DL Creatinine 0.48 MG/DL Estimat Glomerular Filtration 183 ML/MIN Rate Random Glucose 113 MG/DL Calcium Level 9.6 MG/DL Imaging Last Impressions Chest X-Ray 08/25/15 0600 Signed Impressions: Service Date/Time: Tuesday, August 25, 2015 02:35 - CONCLUSION: No significant change has occurred. Jeramie Manjarrez MD Tunnelled Chest Tube Removal 08/05/15 1100 Signed Impressions: Service Date/Time: Wednesday, August 05, 2015 11:00 - CONCLUSION: Uncomplicated chest tube removal. Blaine Jackson MD Chest Tube Change 07/31/15 0000 Signed Impressions: Service Date/Time: Friday, July 31, 2015 14:34 - CONCLUSION: Uncomplicated reposition of previously placed chest tube as above. Blaine Jackson MD Chest Tube Insertion 07/30/15 0000 Signed Impressions: Service Date/Time: July 14:50 - CONCLUSION: Uncomplicated chest tube placement as above. Blaine Jackson MD Catheter Change 07/27/15 0000 Signed Impressions: Service Date/Time: Monday, July 27, 2015 14:43 - CONCLUSION: Uncomplicated gastrostomy tube exchange as above. Blaine Jackson MD Chest CT 07/11/15 0000 Signed Impressions: Service Date/Time: Saturday, July 11, 2015 09:49 - CONCLUSION: Scattered patchy densities significantly improved from previous study. Tiny anterior right basilar pneumothorax. Right-sided chest tube in good position. Néstor Matamoros MD Head CT 06/18/151902 Signed Impressions: Service Date/Time: June 19:31 - CONCLUSION: Diffuse atrophy unchanged. No acute intracranial findings. Kush Briscoe MD Abdomen/Pelvis CT 06/18/151902 Signed Impressions: Service Date/Time: June 19:36 - CONCLUSION: 1. Chronic nonspecific urinary bladder wall thickening. Bladder collapsed with Putnam catheter in place. 2. Chronic bilateral mid to lower lung zone groundglass opacity. 3. Nonobstructing left renal calculus. 4. Distended rectum. Kush Briscoe MD Objective Remarks GENERAL: 54-year-old male, cachectic, debilitated with contractures on tpiece HEENT: NC/AT. PERRL. MMM dry and pink. NECK: No JVD. 8.0 Distal XLT trach in place CARDIAC: RRR. S1/S2. No S4. No murmurs, clicks gallops or rubs. LUNGS: Tachypneic with bilateral rhonchi but no accessory muscle use. Equal breath sounds bilat, no wheeze. ABDOMEN: S/NT/ND. Bowel sounds present. EXTREMITIES: pulses are equal bilaterally. 1+ pedal edema NEUROLOGY: Patient with significant contractures of the right lower extremity, upper extremities. Eyes open spontaneously. Muscle wasting face, bilateral upper and lower extremities Procedures 07/26- PEG replacement 07/29- right pigtail catheter placement for new pneumothorax 07/29 Date of Insertion: Jul 30, 2015 A/P Assessment and Plan Neuro/Psych: Toxic metabolic Encephalopathy - chronic Parkinson's disease Cognitive disorder/Underlying dementia Depression CT head 06/18/15: - diffuse atrophy unchanged. No acute intracranial findings Continue Sinemet 25/100 q8 via PEG, Seroquel 50 mg twice a day, olanzapine 5 mg a night, Klonopin 2 mg every 8 hours, Paxil 20 daily and Neurontin 300 mg twice a day. These are longterm home meds, dose of antipsychotics have been titrated up slightly since admit. Continue Lortab when necessary pain and fentanyl patch 50 g every 3 days for pain management. Fentanyl bolus prn breakthrough pain or if needed for turning/ nursing care/etc. Resp: Acute on chronic respiratory failure Chronic trach, Pneumonia Right pneumothorax status post pigtail catheter (resolved) Continue Tpiece as tolerated, CPAP if needed. Pulmonary Dr. Restrepo following. Pulm toilet, trach care. Exchanged to 8 Distal XLT on 08/15 to facilitate suctioning, trach care. Bronchodilators ( DuoNeb) Status post chest tube replacement by interventional radiology on 07/30, chest tube removed 08/04, repeat films do not indicate any pneumothorax CXR from 08/24 - no significant changes compared to prior study. Trach in place. Cardiac History of orthostasis History of CAD, HLP, Hypertension Continue Midodrine 5 mg twice a day Monitor HR and BP keep MAP>65mmHg GI: Malnutrition/protein calorie - moderate Status post PEG Hemorrhoids Gastroesophageal reflux disease - Tolerating Jevity 1.5 at 60 cc an hour per nutrition recommendations - Currently Prevacid 30 mg per PEG tube daily for GERD - Current Colace/senna for bowel regimen. FEN/renal: Nonobstructing left renal calculus - Monitor renal function, I/O's. electrolytes replacement per protocol. ID: Candiduria (cele tropicalis urine cx 08/17) ESBL positive Klebsiella/Pseudomonas pneumonia Stenotrophomonas in sputum 08/17 MRSA colonization sepsis UTI Klebsiella ESBL positive (has been treated) Watching off abx per ID: Diflucan 08/17-08/26 . Levaquin 08/20--08/26 for Stenotrophomonas. ID signed off, reconsult if needed. Completed course of meropenem for 08/11-08/20 for Klebsiella ESBL/pseudomonas pneumonia. On Lactinex tid Urine cx 08/17 - cele tropicalis Blood culture 08/17 negative sputum culture 08/17 - pseudomonas and Stenotrophomonas maltophilia. Urine culture: 08/02 Klebsiella pneumonia ESBL positive Urine culture: 08/02 Cele Tropicalis, C. Glabrata Sputum culture: 08/02 Pseudomonas, Klebsiella pneumonia ESBL positive Blood culture: 08/02 yeast species, Cele glabrata, Cele tropicalis - History of Multidrug resistant UTI- ESBL 02/19/15 , MRSA + 03/20/15 - Cele glabrata in urine 03/19/15 - Rechecked blood, sputum and urine cultures 07/06 no growth - 06/17 - blood cultures 2 - CONS/staph epi - 06/17 - sputum - ESBL positive Klebsiella/Pseudomonas Treated 15 days with tobramycin aerosols twice a day. - 06/17 - urine - C. glabrata/tropicalis - treated with Diflucan Endo: Euglycemic. Not requiring sliding scale Heme Anemia - Monitor CBC MSK Bilateral lower extremity Contractures Stage II sacral decubitus present on admission - Wound care evaluate and treat - Continue physical therapy Prophylaxis - GI - Prevacid - DVT - SCDs/ Lovenox. Discussed with Dr. Pickard Patients prognosis for meaningful recovery is poor. Failing efforts at weaning, multiple infectious complications. Is appropriate for hospice as his condition is end-stage, terminal. Making efforts to discuss with healthcare proxy, Radha. CCT 30 mins Leena Mistry MD Aug 28, 2015 17:47
[2015-08-28] MEDS: OLANZapine 5 MG TAB GT SCH (19:24)
[2015-08-28] MEDS: ENOXAPARIN SODIUM 40 MG/0.4 ML SYRINGE SQ SCH (19:24)
[2015-08-28] MEDS: CHLORHEXIDINE GLUCONATE 2 % 1 PACK (2 CLOTHS) TOP SCH (19:25)
[2015-08-29] VITALS (19 sets, daily range): BP systolic 100–118; BP diastolic 67–78; PULSE 73–100; RESP 16–34; TEMP 98.2–99.1; O2SAT 97–100
[2015-08-29] MEDS: CARBIDOPA/LEVODOPA 25 MG/100 MG TAB GT SCH ×3 (04:34→21:49)
[2015-08-29] MEDS: HYOSCYAMINE SOLN 0.125 MG/ML 15 ML BTL PO SCH ×3 (04:34→21:48)
[2015-08-29] MEDS: clonazePAM 1 MG TAB PO SCH ×3 (04:34→21:48)
[2015-08-29] MEDS: COLLAGENASE OINT 30 GM TUBE TOP SCH (09:00)
[2015-08-29] MEDS: SENNOSIDES SYRUP 8.8 MG/5 ML CUP PO SCH (09:00)
[2015-08-29] MEDS: LACTOBACILLUS ACIDOPHILUS TAB PO SCH ×3 (10:05→18:00)
[2015-08-29] MEDS: MIDODRINE 5 MG TAB G-TUBE SCH ×2 (10:05→21:49)
[2015-08-29] MEDS: GABAPENTIN 300 MG CAP G-TUBE SCH ×2 (10:05→21:48)
[2015-08-29] MEDS: PARoxetine HCL 20 MG TAB G-TUBE SCH (10:05)
[2015-08-29] MEDS: LANSOPRAZOLE SOLUTAB 30 MG TAB NG SCH (10:05)
[2015-08-29] MEDS: QUEtiapine FUMARATE 25 MG TAB G-TUBE SCH ×2 (10:06→21:48)
[2015-08-29] MEDS: SODIUM CHLORIDE 0.9% FLUSH 5 ML FLUSH IVF SCH ×2 (10:06→21:49)
[2015-08-29] MEDS: ARTIFICIAL TEARS OPTH SOLN 15 ML BTL EACH EYE SCH ×3 (10:07→18:00)
[2015-08-29] MEDS: CHLORHEXIDINE 0.12% (ORAL KIT) 15 ML CUP MT SCH ×2 (10:09→21:50)
--- NOTE | 2015-08-29 13:27 | HHI.PR ---
Subjective Remarks On a T Bar Fio2 35%,and tolerated it fro 8 hrs. On CPAP at HS. Remains Lethargic. On tube feeds.Good output. No change overall. . Objective Vital Signs Date Time Temp Pulse Resp B/P Pulse Ox O2 Delivery O2 Flow Rate FiO2 08/29/15 12:21 98.4 89 16 105/70 98 08/29/15 12:20 50 08/29/15 12:00 90 08/29/15 10:00 85 08/29/15 09:24 97 T-piece 40 08/29/15 08:00 98.3 75 16 113/73 98 08/29/15 08:00 50 08/29/15 08:00 80 08/29/15 07:55 99 35 08/29/15 07:55 35 08/29/15 06:00 94 08/29/15 04:18 100 35 08/29/15 04:00 94 08/29/15 04:00 50 08/29/15 04:00 98.9 77 16 118/78 98 08/29/15 02:00 94 08/29/15 01:03 99 35 08/29/15 00:00 50 08/29/15 00:00 94 08/29/15 00:00 98.9 73 16 100/74 98 08/28/15 23:43 100 35 08/28/15 22:00 94 08/28/15 21:01 98 35 08/28/15 20:00 50 08/28/15 20:00 94 08/28/15 20:00 98.9 90 16 120/84 98 08/28/15 18:00 94 08/28/15 16:00 98.7 94 16 107/72 98 08/28/15 16:00 50 08/28/15 16:00 94 08/28/15 14:00 94 I/O 08/28/15 08/28/15 08/28/15 08/29/15 08/29/15 08/29/15 07:00 15:00 23:00 07:00 15:00 23:00 Intake Total 500 ml 492 ml 502 ml 450 ml Output Total 700 ml 850 ml 750 ml 550 ml Balance -200 ml -358 ml -248 ml -100 ml Intake Oral 0 ml 0 ml 0 ml IV Total 50 ml Tube Feeding 325 ml 392 ml 377 ml 325 ml Tube Irrigant 125 ml 100 ml 125 ml 125 ml Output Urine Total 700 ml 850 ml 750 ml 550 ml # Bowel Movements 1 1 2 2 Result Diagram: 08/27/15 0600 08/27/15 0600 Objective Remarks This is a thin white male who in on the vent, Awake but no response to commands ,with a trach tube in place. HEENT: Pupils are equal and reactive to light.Throat clear. CHEST: Occ Basal crackles. Decreased breath sounds . CARDIOVASCULAR: S1 and S2 is normal. ABDOMEN: Soft, nondistended. He has a PEG tube in place. EXTREMITIES: No edema.muscle wasting. NEURO: Lethargic and Does not move his extremities .Reflexes not elicited. Assessment and Plan Assessment and Plan IMPRESSION 1. Respiratory failure, ventilator dependent. 2. Sepsis, resolving. 3. UTI 4. Tracheobronchitis 5. Parkinson's disease 6. Dementia. 7. Severe Deconditioning. 8. Left Pneumothorax. Resolved. Plan : 1. Bipap 5/10, FIO2 35 % at HS 7 PM to 7 am. 2. Nebs qid , duoneb. 3. Cont Tube feeds at 60 CC 4. Cont T Bar 40 % for 12 hrs if tolerating. 5. Levsin .125 mg tid via peg. 6. Trach toilet and lavage. 8. Lovenox 40 Mg S/Q daily. 9. Arrange Bipap at Home. Darren Kiser MD Aug 29, 2015 13:27
--- NOTE | 2015-08-29 20:21 | HHI.CCPN ---
Subjective Remarks/Hospital Course 06/17: Pt is a 54 yr man with multiple medial problems including Parkinson's disease, advanced dementia, hyponatremia, anxiety, pneumonia, GERD, cognitive disorder, and multidrug resistant UTI- ESBL02/19/15 , who resides in a custodial. Pt by report was found by staff in custodial to be less alert and having respiratory difficultly and fevers. Pt was brought to ED adn placed on ventilator. His workup was inclusive of labs, chest xray and ct head and abd/pelvis. WBC 16.4, +UTI, lactic acid 4, troponin ,0.02, BUN/ cre 18/ 0.76. CT head 06/18/15: diffuse atrophy unchanged. No acute intracranial findings ct abd/ pelvis with IV contrast: 06/18/15 Conclusion: 1. Chronic nonspecific urinary bladder wall thickening. Bladder collapsed with Putnam catheter in place. 2.Chronic bilateral mid to lower zone groundglass opacity. 3. Nonobstructing left renal calculus. 4. Distended rectum Pt admitted and fluid and abx ordered. 06/18: Drowsy, easily arousable. On mechanical ventilation via tracheostomy. Tachypneic. Resting tremor noted. 06/19: Drowsy, arousable. On mechanical ventilation via tracheostomy. 06/20: Drowsy, arousable. Remains on mechanical ventilation via tracheostomy. We'll repeat blood cultures, UA and urine cultures. Fluconazole IV added in view of yeast in urine. 07/06: Reconsulted as patient return to the ventilator on a right ventricular due to tachypnea. Low-grade temperatures. Tolerating tube feeding. Extremity encephalopathic demented patient with difficult neurological examination. 07/07: Status post chest tube placement by IR for right pneumothorax 07/06. Afebrile. Tolerating tube feeds. Positive BM. Currently tachypneic on the ventilator. Does not appear to be any acute distress. 07/08: Afebrile. Tolerating tube feeding. He is comfortable currently on CPAP trials 11/10. Positive BM. 07/09: Afebrile. Tolerating tube feeding. Appears comfortable on T bar. Positive BM. 07/10: Afebrile. Eyes are open. Remained on T piece overnight. Tolerating tube feeding. 07/11: MAXIMUM TEMPERATURE 100. Currently 98.6. Eyes are open. On ACV overnight secondary to "tachypnea and sweating". Switching back to PSV trials today. Goal is T piece during daytime, CPAP at night. 07/12: No acute events overnight. On PSV 15/5 -attempt TP up to 6 hours today. No pneumothorax on chest x-ray 07/13: Placed back on full ventilator support for tachypnea. Otherwise clinically unchanged. No fever today 07/14: Patient was on T piece yesterday evening, placed back on PSV overnight, patient mechanical ventilation this morning. Patient appears to be struggling with mechanical ventilation. Patient placed back on PSV with improvement 07/15: Patient placed back on mechanical ventilation last evening due to respiratory rate. It was indicated patient was tachypnea can the 40s. Patient on mechanical ventilation this time with respiration rate mid 20s. Chest tube still in place without any output, chest x-ray still indicating resolution of pneumothorax. 07/16: Patient seen and examined today. Patient placed back on mechanical ventilation overnight due to respiratory rate. Even on mechanical ventilation patient has respiration rate in the 30s. Patient afebrile, blood pressure stable. Continue vent weaning 07/17: Patient seen and examined. Currently afebrile. Currently on CPAP 15/5 @ 40%. Patient is awake with open mouth resting in bed in no apparent acute distress. Tolerating tube feeding. 2 bowel movements. 07/18: No neurological changes. Afebrile. 2 bowel moments. Tolerating tube feeding. We'll attempt TP trials today. On CPAP since 07/15 07/19 No events overnight. On CPAP with PS: 10, PEEP: 5 and FIO2 35%. Afebrile. On no sedation. 07/20 No events overnight. Tolerating CPAP. Afebrile. 07/21: Remains on CPAP. Attempt T piece trial today. Afebrile. One bowel movement. Tolerating tube feeding. 07/22: Afebrile. Positive BM. Tolerating tube feeding. Noted switched tracheostomy to #6 Shiley cuffed fenestrated. Neurologically unchanged 07/23: Afebrile. Positive BM. Tolerating tube feeding. Questionable leak in exchange trach. Place back on a rate/ACV overnight. Insufflated seems to be doing better at the present time. Will check chest x-ray. Possible he might need #6 XLT versus replacement of chronic #8 Shiley. 07/24: Tolerating TP today, RR in low 30s patient appears comfortable. No acute events overnight 07/25: Remains off the ventilator more than 36 hours now. Intermittently tachypneic probably breathing. Chest x-ray was clear yesterday. No acute events reported overnight. PEG not functioning per RN 08/02: Patient was transferred back to critical care service due to continuing ventilator management, tachypnea. Patient clinical status with no significant change. Patient with low-grade fever 100.2, 08/03: Patient seen and examined today. No significant change in clinical status. Patient still with chronic tachypnea. Patient afebrile now. 08/04: Patient seen and examined today. No change in clinical status. Patient still continues to have chronic tachypnea. Patient afebrile. Continue vent weaning 08/05: Patient seen and examined today. Patient had chest tube removed yesterday , chest x-ray shows redevelopment of pneumothorax. Chest tube replaced. Otherwise, patient still on ventilator with tachypnea. Afebrile 08/06: Patient seen and examined today. Patient went to have chest tube placed, repeat chest x-ray did not indicate any pneumothorax. No overnight events. We' ll need to pursue LTAC placement 08/07 No events overnight. On ventilator via trach. Afebrile. 08/08 Patient tolerated CPAP x4 hrs yesterday. Afebrile. On no sedation. 08/09 No events overnight. Tolerated CPAP x 12 hrs yesterday. Afebrile. 08/10 Patient tolerated TP's x 12 hrs yesterday back on ACV overnight. 08/11 No events overnight, currently on TP's with 40% FIO2. Afebrile. 08/12 On CPAP 10/5. Tolerated Tpiece 3 hours earlier today. Afebrile. 08/13 On CPAP 10/5. Not tolerating CPAP as well over last few days and RT notes challenge with suctioning respiratory secretions adequately. Discussing with healthcare proxy regarding exchange trach to 8.0. 08/14 Nursing and RT staff having continued difficulty suctioning respiratory secretions via 6.0 tracheostomy. KAREN Garcia did not consent to stoma dilation and trach upsize yesterday but said she would call back and let me know but no return call. Contacted again today and left a message. Afebrile. On CPAP 10/5. Brow furrowing on exam, appears to be in pain but pain not localizable. Tolerating tube feeds, had BM yesterday 08/15 Not tolerating CPAP today. Contacted healthcare surrogate again and discussed need for trach change. She consented and trach was dilated and up- sized to 8.0 Distal XLT to facilitate pulmonary toilet and to address volume leak. 08/16 No events overnight. Remains on ventilator via trach. Afebrile. Tolerating TF. 08/17 No events overnight. Afebrile. 08/18 Patient tolerated CPAP x 4 hrs yesterday. Afebrile.On ventilator via trach. 08/19 On CPAP 25/06. Temp max 99.3 08/20 Stenotrophomonas in sputum, started on Levaquin per ID. Temp max 99.8. On CPAP 20/09. Tube feeds were held because PEG was clogged but now PEG is functioning. 08/21 No events overnight. Afebrile. Remains on ventilator via trach. Has been tolerating CPAP trials for last 2 days. 08/22 No events overnight. Afebrile , Has been on CPAP all night with PS: 20, PEEP; 5 and FIO2 35%. 08/23 No events overnight. Remains on CPAP, T:99.9 08/24 No events overnight. On CPAP PS 10, PEEP; 5 and FIO2 35% overnight. Afebrile. 08/25 No events overnight. Afebrile. On CPAP overnight with PS 8, PEEP: 5 and FIO2 35%, afebrile. Tolerating TF. 08/26 Tolerating Tpiece. 08/27 Tolerated Tpiece yesterday and overnight. However this evening desaturated and was placed back on CPAP. Dr. Mistry attempted to update daughter Radha Foreman and discuss his overall poor prognosis for recovery, but call got disconnected midway through call and could not reach her back Subjective: 08/28 On PSV 10/5 40% today. Afebrile. Objective - Vital Signs Date Time Temp Pulse Resp B/P Pulse Ox O2 Delivery O2 Flow Rate FiO2 08/29/15 18:42 98 40 08/29/15 18:00 85 08/29/15 16:00 98.2 16 108/72 08/29/15 09:24 T-piece 08/28/15 09:49 5.00 Intake and Output 08/28/15 08/28/15 08/28/15 07:59 15:59 23:59 Intake Total 500 ml 492 ml 502 ml Output Total 700 ml 850 ml 750 ml Balance -200 ml -358 ml -248 ml Result Diagram: 08/27/15 0600 08/27/15 06 Other Results Laboratory Tests Test 08/26/15 04:44 White Blood Count 6.9 TH/MM3 Red Blood Count 3.51 MIL/MM3 Hemoglobin 9.6 GM/DL Hematocrit 31.0 % Mean Corpuscular Volume 88.2 FL Mean Corpuscular Hemoglobin 27.3 PG Mean Corpuscular Hemoglobin 30.9 % Concent Red Cell Distribution Width 14.7 % Platelet Count 213 TH/MM3 Mean Platelet Volume 10.4 FL Neutrophils (%) (Auto) 57.6 % Lymphocytes (%) (Auto) 20.6 % Monocytes (%) (Auto) 6.6 % Eosinophils (%) (Auto) 14.4 % Basophils (%) (Auto) 0.8 % Neutrophils # (Auto) 4.0 TH/MM3 Lymphocytes # (Auto) 1.4 TH/MM3 Monocytes # (Auto) 0.5 TH/MM3 Eosinophils # (Auto) 1.0 TH/MM3 Basophils # (Auto) 0.1 TH/MM3 CBC Comment DIFF FINAL Differential Comment Sodium Level 143 MEQ/L Potassium Level 4.4 MEQ/L Chloride Level 98 MEQ/L Carbon Dioxide Level 39.1 MEQ/L Anion Gap 6 MEQ/L Blood Urea Nitrogen 19 MG/DL Creatinine 0.48 MG/DL Estimat Glomerular Filtration 183 ML/MIN Rate Random Glucose 113 MG/DL Calcium Level 9.6 MG/DL Imaging Last Impressions Chest X-Ray 08/25/15 0600 Signed Impressions: Service Date/Time: Tuesday, August 25, 2015 02:35 - CONCLUSION: No significant change has occurred. Jeramie Manjarrez MD Tunnelled Chest Tube Removal 08/05/15 1100 Signed Impressions: Service Date/Time: Wednesday, August 05, 2015 11:00 - CONCLUSION: Uncomplicated chest tube removal. Blaine Jackson MD Chest Tube Change 07/31/15 0000 Signed Impressions: Service Date/Time: Friday, July 31, 2015 14:34 - CONCLUSION: Uncomplicated reposition of previously placed chest tube as above. Blaine Jackson MD Chest Tube Insertion 07/30/15 0000 Signed Impressions: Service Date/Time: July 14:50 - CONCLUSION: Uncomplicated chest tube placement as above. Blaine Jackson MD Catheter Change 07/27/15 0000 Signed Impressions: Service Date/Time: Monday, July 27, 2015 14:43 - CONCLUSION: Uncomplicated gastrostomy tube exchange as above. Blaine Jackson MD Chest CT 07/11/15 0000 Signed Impressions: Service Date/Time: Saturday, July 11, 2015 09:49 - CONCLUSION: Scattered patchy densities significantly improved from previous study. Tiny anterior right basilar pneumothorax. Right-sided chest tube in good position. Néstor Matamoros MD Head CT 06/18/151902 Signed Impressions: Service Date/Time: , June 18, 2015 19:31 - CONCLUSION: Diffuse atrophy unchanged. No acute intracranial findings. Kush Briscoe MD Abdomen/Pelvis CT 06/18/151902 Signed Impressions: Service Date/Time: June 19:36 - CONCLUSION: 1. Chronic nonspecific urinary bladder wall thickening. Bladder collapsed with Putnam catheter in place. 2. Chronic bilateral mid to lower lung zone groundglass opacity. 3. Nonobstructing left renal calculus. 4. Distended rectum. Kush Briscoe MD Objective Remarks GENERAL: 54-year-old male, cachectic, debilitated with contractures on tpiece HEENT: NC/AT. PERRL. MMM dry and pink. NECK: No JVD. 8.0 Distal XLT trach in place CARDIAC: RRR. S1/S2. No S4. No murmurs, clicks gallops or rubs. LUNGS: Tachypneic with respiratory rate in 30s on Bipap via trach with bilateral rhonchi but no accessory muscle use. Equal breath sounds bilat, no wheeze. ABDOMEN: S/NT/ND. Bowel sounds present. EXTREMITIES: pulses are equal bilaterally. 1+ pedal edema. Contractures and deformities of fingers. NEUROLOGY: Patient with significant contractures of the bilat lower extremity, upper extremities. Eyes open spontaneously. Temporal and facial muscle wasting , muscular atrophy all extremities. Procedures 07/26- PEG replacement 07/29- right pigtail catheter placement for new pneumothorax 07/29 Date of Insertion: Jul 30, 2015 A/P Assessment and Plan Neuro/Psych: Toxic metabolic Encephalopathy - chronic Parkinson's disease Cognitive disorder/Underlying dementia Depression CT head 06/18/15: - diffuse atrophy unchanged. No acute intracranial findings Continue Sinemet 25/100 q8 via PEG, Seroquel 50 mg twice a day, olanzapine 5 mg a night, Klonopin 2 mg every 8 hours, Paxil 20 daily and Neurontin 300 mg twice a day. These are retirement home meds, dose of antipsychotics have been titrated up slightly since admit. Continue Lortab when necessary pain and fentanyl patch 50 g every 3 days for pain management. Fentanyl bolus prn breakthrough pain or if needed for turning/ nursing care/etc. Resp: Acute on chronic respiratory failure Chronic trach, Pneumonia Right pneumothorax status post pigtail catheter (resolved) On PSV using Bipap machine per pulmonology. Pulmonary Dr. Restrepo following. Pulm toilet, trach care. Exchanged to 8 Distal XLT on 08/15 to facilitate suctioning, trach care. Recommend patient never be downsized from this trach. Bronchodilators ( DuoNeb) Status post chest tube replacement by interventional radiology on 07/30, chest tube removed 08/04, repeat films do not indicate any pneumothorax CXR from 08/24 - no significant changes compared to prior study. Trach in place. Cardiac History of orthostasis History of CAD, HLP, Hypertension Continue Midodrine 5 mg twice a day Monitor HR and BP keep MAP>65mmHg GI: Malnutrition/protein calorie - moderate Status post PEG Hemorrhoids Gastroesophageal reflux disease - Tolerating Jevity 1.5 at 60 cc an hour per nutrition recommendations - Currently Prevacid 30 mg per PEG tube daily for GERD - Current Colace/senna for bowel regimen. FEN/renal: Nonobstructing left renal calculus - Monitor renal function, I/O's. electrolytes replacement per protocol. ID: Candiduria (cele tropicalis urine cx 08/17) ESBL positive Klebsiella/Pseudomonas pneumonia Stenotrophomonas in sputum 08/17 MRSA colonization sepsis UTI Klebsiella ESBL positive (has been treated) Watching off abx per ID: Diflucan 08/17-08/26 . Levaquin 08/20--08/26 for Stenotrophomonas. ID signed off, reconsult if needed. Completed course of meropenem for 08/11-08/20 for Klebsiella ESBL/pseudomonas pneumonia. On Lactinex tid Urine cx 08/17 - cele tropicalis Blood culture 08/17 negative sputum culture 08/17 - pseudomonas and Stenotrophomonas maltophilia. Urine culture: 08/02 Klebsiella pneumonia ESBL positive Urine culture: 08/02 Cele Tropicalis, C. Glabrata Sputum culture: 08/02 Pseudomonas, Klebsiella pneumonia ESBL positive Blood culture: 08/02 yeast species, Cele glabrata, Cele tropicalis - History of Multidrug resistant UTI- ESBL 02/19/15 , MRSA + 03/20/15 - Cele glabrata in urine 03/19/15 - Rechecked blood, sputum and urine cultures 07/06 no growth - 06/17 - blood cultures 2 - CONS/staph epi - 06/17 - sputum - ESBL positive Klebsiella/Pseudomonas Treated 15 days with tobramycin aerosols twice a day. - 06/17 - urine - C. glabrata/tropicalis - treated with Diflucan Endo: Euglycemic. Not requiring sliding scale Heme Anemia - Monitor CBC MSK Bilateral lower extremity Contractures Stage II sacral decubitus present on admission - Wound care evaluate and treat - Continue physical therapy Prophylaxis - GI - Prevacid - DVT - SCDs/ Lovenox. Discussed with Dr. Pickard Patients prognosis for meaningful recovery is poor. Failing efforts at weaning, multiple infectious complications. Is appropriate for hospice as his condition is end-stage, terminal. Making efforts to discuss with healthcare proxy, Radha. CCT 30 mins Leena Mistry MD Aug 29, 2015 20:21
[2015-08-29] MEDS: ENOXAPARIN SODIUM 40 MG/0.4 ML SYRINGE SQ SCH (21:48)
[2015-08-29] MEDS: OLANZapine 5 MG TAB GT SCH (21:48)
[2015-08-30] VITALS (16 sets, daily range): BP systolic 106–146; BP diastolic 73–93; PULSE 87–97; RESP 24–30; TEMP 98.4–99; O2SAT 96–100
[2015-08-30] MEDS: CHLORHEXIDINE GLUCONATE 2 % 1 PACK (2 CLOTHS) TOP SCH ×2 (03:16→21:34)
[2015-08-30] MEDS: HYOSCYAMINE SOLN 0.125 MG/ML 15 ML BTL PO SCH ×3 (04:13→21:32)
[2015-08-30] MEDS: CARBIDOPA/LEVODOPA 25 MG/100 MG TAB GT SCH ×3 (04:13→21:33)
[2015-08-30] MEDS: clonazePAM 1 MG TAB PO SCH ×3 (04:14→21:32)
[2015-08-30] MEDS: LACTOBACILLUS ACIDOPHILUS TAB PO SCH ×3 (08:39→17:07)
[2015-08-30] MEDS: GABAPENTIN 300 MG CAP G-TUBE SCH ×2 (08:40→21:32)
[2015-08-30] MEDS: LANSOPRAZOLE SOLUTAB 30 MG TAB NG SCH (08:40)
[2015-08-30] MEDS: MIDODRINE 5 MG TAB G-TUBE SCH ×2 (08:40→21:32)
[2015-08-30] MEDS: PARoxetine HCL 20 MG TAB G-TUBE SCH (08:40)
[2015-08-30] MEDS: COLLAGENASE OINT 30 GM TUBE TOP SCH (08:40)
[2015-08-30] MEDS: SENNOSIDES SYRUP 8.8 MG/5 ML CUP PO SCH (08:40)
[2015-08-30] MEDS: QUEtiapine FUMARATE 25 MG TAB G-TUBE SCH ×2 (08:40→21:33)
[2015-08-30] MEDS: ARTIFICIAL TEARS OPTH SOLN 15 ML BTL EACH EYE SCH ×3 (08:40→17:07)
[2015-08-30] MEDS: CHLORHEXIDINE 0.12% (ORAL KIT) 15 ML CUP MT SCH ×2 (08:41→20:00)
[2015-08-30] MEDS: SODIUM CHLORIDE 0.9% FLUSH 5 ML FLUSH IVF SCH ×2 (09:00→21:32)
--- NOTE | 2015-08-30 16:03 | HHI.PR ---
Subjective Remarks On a T Bar Fio2 35%,and tolerated it fro 10 hrs. On CPAP at HS. Remains Lethargic. On tube feeds. No change overall. . Objective Vital Signs Date Time Temp Pulse Resp B/P Pulse Ox O2 Delivery O2 Flow Rate FiO2 08/30/15 15:00 98 T-Piece 70 08/30/15 14:00 91 08/30/15 12:00 88 08/30/15 12:00 99.0 88 24 99 08/30/15 11:00 99 T-Piece 40 08/30/15 10:00 93 08/30/15 08:20 100 T-piece 35 08/30/15 08:00 98.6 94 30 128/83 96 08/30/15 08:00 94 08/30/15 07:00 96 Bi-Pap 40 08/30/15 06:00 92 08/30/15 04:09 99 40 08/30/15 04:00 98.4 93 25 107/75 99 08/30/15 04:00 93 08/30/15 03:00 100 Bi-Pap 40 08/30/15 02:00 87 08/30/15 01:34 98 40 08/30/15 00:00 98.8 97 24 106/73 100 08/30/15 00:00 97 08/29/15 23:00 100 Bi-Pap 40 08/29/15 22:00 98 08/29/15 21:06 100 40 08/29/15 20:00 99.1 100 34 118/67 99 08/29/15 20:00 100 08/29/15 18:42 98 40 08/29/15 18:00 85 I/O 08/29/15 08/29/15 08/29/15 08/30/15 08/30/15 08/30/15 07:00 15:00 23:00 07:00 15:00 23:00 Intake Total 450 ml 650 ml 480 ml 263 ml 725 ml Output Total 550 ml 1000 ml 600 ml 50 ml 400 ml Balance -100 ml -350 ml -120 ml 213 ml 325 ml Intake Oral 0 ml IV Total 150 ml 0 ml 0 ml 0 ml Tube Feeding 325 ml 350 ml 480 ml 263 ml 605 ml Tube Irrigant 125 ml 150 ml Other 120 ml Output Urine Total 550 ml 1000 ml 600 ml 50 ml 400 ml # Bowel Movements 2 2 1 3 4 Result Diagram: 08/27/1559908/27/15599 Objective Remarks This is a thin white male who in on the vent, Awake but no response to commands ,with a trach tube in place. HEENT: Pupils are equal and reactive to light.Throat clear. Trach in neck CHEST: Occ Basal crackles. Decreased breath sounds . CARDIOVASCULAR: S1 and S2 is normal. ABDOMEN: Soft, nondistended. He has a PEG tube in place. EXTREMITIES: No edema.muscle wasting. NEURO: Lethargic and Does not move his extremities .Reflexes not elicited. Assessment and Plan Assessment and Plan IMPRESSION 1. Respiratory failure, ventilator dependent. 2. Sepsis, resolving. 3. UTI 4. Tracheobronchitis 5. Parkinson's disease 6. Dementia. 7. Severe Deconditioning. 8. Left Pneumothorax. Resolved. Plan : 1. Bipap 5/10, FIO2 35 % at HS 10 PM to 7 am. 2. Nebs qid , duoneb. 3. Cont Tube feeds at 60 CC 4. Cont T Bar 40 % for 15 hrs if tolerating. 5. Levsin .125 mg tid via peg. 6. Trach toilet and lavage. 8. Lovenox 40 Mg S/Q daily. 9. Arrange Bipap at N Home. Darren Kiser MD Aug 30, 2015 16:03
--- NOTE | 2015-08-30 16:35 | HHI.CCPN ---
Subjective Remarks/Hospital Course 06/17: Pt is a 54 yr man with multiple medial problems including Parkinson's disease, advanced dementia, hyponatremia, anxiety, pneumonia, GERD, cognitive disorder, and multidrug resistant UTI- ESBL02/19/15 , who resides in a half-way. Pt by report was found by staff in half-way to be less alert and having respiratory difficultly and fevers. Pt was brought to ED adn placed on ventilator. His workup was inclusive of labs, chest xray and ct head and abd/pelvis. WBC 16.4, +UTI, lactic acid 4, troponin ,0.02, BUN/ cre 18/ 0.76. CT head 06/18/15: diffuse atrophy unchanged. No acute intracranial findings ct abd/ pelvis with IV contrast: 06/18/15 Conclusion: 1. Chronic nonspecific urinary bladder wall thickening. Bladder collapsed with Putnam catheter in place. 2.Chronic bilateral mid to lower zone groundglass opacity. 3. Nonobstructing left renal calculus. 4. Distended rectum Pt admitted and fluid and abx ordered. 06/18: Drowsy, easily arousable. On mechanical ventilation via tracheostomy. Tachypneic. Resting tremor noted. 06/19: Drowsy, arousable. On mechanical ventilation via tracheostomy. 06/20: Drowsy, arousable. Remains on mechanical ventilation via tracheostomy. We'll repeat blood cultures, UA and urine cultures. Fluconazole IV added in view of yeast in urine. 07/06: Reconsulted as patient return to the ventilator on a right ventricular due to tachypnea. Low-grade temperatures. Tolerating tube feeding. Extremity encephalopathic demented patient with difficult neurological examination. 07/07: Status post chest tube placement by IR for right pneumothorax 07/06. Afebrile. Tolerating tube feeds. Positive BM. Currently tachypneic on the ventilator. Does not appear to be any acute distress. 07/08: Afebrile. Tolerating tube feeding. He is comfortable currently on CPAP trials 11/10. Positive BM. 07/09: Afebrile. Tolerating tube feeding. Appears comfortable on T bar. Positive BM. 07/10: Afebrile. Eyes are open. Remained on T piece overnight. Tolerating tube feeding. 07/11: MAXIMUM TEMPERATURE 100. Currently 98.6. Eyes are open. On ACV overnight secondary to "tachypnea and sweating". Switching back to PSV trials today. Goal is T piece during daytime, CPAP at night. 07/12: No acute events overnight. On PSV 15/5 -attempt TP up to 6 hours today. No pneumothorax on chest x-ray 07/13: Placed back on full ventilator support for tachypnea. Otherwise clinically unchanged. No fever today 07/14: Patient was on T piece yesterday evening, placed back on PSV overnight, patient mechanical ventilation this morning. Patient appears to be struggling with mechanical ventilation. Patient placed back on PSV with improvement 07/15: Patient placed back on mechanical ventilation last evening due to respiratory rate. It was indicated patient was tachypnea can the 40s. Patient on mechanical ventilation this time with respiration rate mid 20s. Chest tube still in place without any output, chest x-ray still indicating resolution of pneumothorax. 07/16: Patient seen and examined today. Patient placed back on mechanical ventilation overnight due to respiratory rate. Even on mechanical ventilation patient has respiration rate in the 30s. Patient afebrile, blood pressure stable. Continue vent weaning 07/17: Patient seen and examined. Currently afebrile. Currently on CPAP 15/5 @ 40%. Patient is awake with open mouth resting in bed in no apparent acute distress. Tolerating tube feeding. 2 bowel movements. 07/18: No neurological changes. Afebrile. 2 bowel moments. Tolerating tube feeding. We'll attempt TP trials today. On CPAP since 07/15 07/19 No events overnight. On CPAP with PS: 10, PEEP: 5 and FIO2 35%. Afebrile. On no sedation. 07/20 No events overnight. Tolerating CPAP. Afebrile. 07/21: Remains on CPAP. Attempt T piece trial today. Afebrile. One bowel movement. Tolerating tube feeding. 07/22: Afebrile. Positive BM. Tolerating tube feeding. Noted switched tracheostomy to #6 Shiley cuffed fenestrated. Neurologically unchanged 07/23: Afebrile. Positive BM. Tolerating tube feeding. Questionable leak in exchange trach. Place back on a rate/ACV overnight. Insufflated seems to be doing better at the present time. Will check chest x-ray. Possible he might need #6 XLT versus replacement of chronic #8 Shiley. 07/24: Tolerating TP today, RR in low 30s patient appears comfortable. No acute events overnight 07/25: Remains off the ventilator more than 36 hours now. Intermittently tachypneic probably breathing. Chest x-ray was clear yesterday. No acute events reported overnight. PEG not functioning per RN 08/02: Patient was transferred back to critical care service due to continuing ventilator management, tachypnea. Patient clinical status with no significant change. Patient with low-grade fever 100.2, 08/03: Patient seen and examined today. No significant change in clinical status. Patient still with chronic tachypnea. Patient afebrile now. 08/04: Patient seen and examined today. No change in clinical status. Patient still continues to have chronic tachypnea. Patient afebrile. Continue vent weaning 08/05: Patient seen and examined today. Patient had chest tube removed yesterday , chest x-ray shows redevelopment of pneumothorax. Chest tube replaced. Otherwise, patient still on ventilator with tachypnea. Afebrile 08/06: Patient seen and examined today. Patient went to have chest tube placed, repeat chest x-ray did not indicate any pneumothorax. No overnight events. We' ll need to pursue LTAC placement 08/07 No events overnight. On ventilator via trach. Afebrile. 08/08 Patient tolerated CPAP x4 hrs yesterday. Afebrile. On no sedation. 08/09 No events overnight. Tolerated CPAP x 12 hrs yesterday. Afebrile. 08/10 Patient tolerated TP's x 12 hrs yesterday back on ACV overnight. 08/11 No events overnight, currently on TP's with 40% FIO2. Afebrile. 08/12 On CPAP 10/5. Tolerated Tpiece 3 hours earlier today. Afebrile. 08/13 On CPAP 10/5. Not tolerating CPAP as well over last few days and RT notes challenge with suctioning respiratory secretions adequately. Discussing with healthcare proxy regarding exchange trach to 8.0. 08/14 Nursing and RT staff having continued difficulty suctioning respiratory secretions via 6.0 tracheostomy. KAREN Garcia did not consent to stoma dilation and trach upsize yesterday but said she would call back and let me know but no return call. Contacted again today and left a message. Afebrile. On CPAP 10/5. Brow furrowing on exam, appears to be in pain but pain not localizable. Tolerating tube feeds, had BM yesterday 08/15 Not tolerating CPAP today. Contacted healthcare surrogate again and discussed need for trach change. She consented and trach was dilated and up- sized to 8.0 Distal XLT to facilitate pulmonary toilet and to address volume leak. 08/16 No events overnight. Remains on ventilator via trach. Afebrile. Tolerating TF. 08/17 No events overnight. Afebrile. 08/18 Patient tolerated CPAP x 4 hrs yesterday. Afebrile.On ventilator via trach. 08/19 On CPAP 25/06. Temp max 99.3 08/20 Stenotrophomonas in sputum, started on Levaquin per ID. Temp max 99.8. On CPAP 20/09. Tube feeds were held because PEG was clogged but now PEG is functioning. 08/21 No events overnight. Afebrile. Remains on ventilator via trach. Has been tolerating CPAP trials for last 2 days. 08/22 No events overnight. Afebrile , Has been on CPAP all night with PS: 20, PEEP; 5 and FIO2 35%. 08/23 No events overnight. Remains on CPAP, T:99.9 08/24 No events overnight. On CPAP PS 10, PEEP; 5 and FIO2 35% overnight. Afebrile. 08/25 No events overnight. Afebrile. On CPAP overnight with PS 8, PEEP: 5 and FIO2 35%, afebrile. Tolerating TF. 08/26 Tolerating Tpiece. 08/27 Tolerated Tpiece yesterday and overnight. However this evening desaturated and was placed back on CPAP. Dr. Mistry attempted to update daughter Radha Foreman and discuss his overall poor prognosis for recovery, but call got disconnected midway through call and could not reach her back 08/28 On PSV 10/5 40% today. Afebrile. Subjective: 08/29 On CPAP overnight. Now on Tpiece 70% per pulmonology. Increased yellow secretions noted. Temp max 99.1 Nursing staff expresses concern that he appears uncomfortable during all nursing care. Called elsa Garcia to update , no answer, left message to call me. Objective - Vital Signs Date Time Temp Pulse Resp B/P Pulse Ox O2 Delivery O2 Flow Rate FiO2 08/30/15 15:00 98 T-Piece 70 08/30/15 14:00 91 08/30/15 12:00 99.0 24 08/30/15 08:00 128/83 08/28/15 09:49 5.00 Intake and Output 08/29/15 08/29/15 08/30/15 08:00 16:00 00:00 Intake Total 450 ml 650 ml 480 ml Output Total 550 ml 1000 ml 600 ml Balance -100 ml -350 ml -120 ml Result Diagram: 08/27/15 0608/27/15 06 Other Results Laboratory Tests Test 08/26/15 04:44 White Blood Count 6.9 TH/MM3 Red Blood Count 3.51 MIL/MM3 Hemoglobin 9.6 GM/DL Hematocrit 31.0 % Mean Corpuscular Volume 88.2 FL Mean Corpuscular Hemoglobin 27.3 PG Mean Corpuscular Hemoglobin 30.9 % Concent Red Cell Distribution Width 14.7 % Platelet Count 213 TH/MM3 Mean Platelet Volume 10.4 FL Neutrophils (%) (Auto) 57.6 % Lymphocytes (%) (Auto) 20.6 % Monocytes (%) (Auto) 6.6 % Eosinophils (%) (Auto) 14.4 % Basophils (%) (Auto) 0.8 % Neutrophils # (Auto) 4.0 TH/MM3 Lymphocytes # (Auto) 1.4 TH/MM3 Monocytes # (Auto) 0.5 TH/MM3 Eosinophils # (Auto) 1.0 TH/MM3 Basophils # (Auto) 0.1 TH/MM3 CBC Comment DIFF FINAL Differential Comment Sodium Level 143 MEQ/L Potassium Level 4.4 MEQ/L Chloride Level 98 MEQ/L Carbon Dioxide Level 39.1 MEQ/L Anion Gap 6 MEQ/L Blood Urea Nitrogen 19 MG/DL Creatinine 0.48 MG/DL Estimat Glomerular Filtration 183 ML/MIN Rate Random Glucose 113 MG/DL Calcium Level 9.6 MG/DL Imaging Last Impressions Chest X-Ray 08/25/15 0600 Signed Impressions: Service Date/Time: Tuesday, August 25, 2015 02:35 - CONCLUSION: No significant change has occurred. Jeramie Manjarrez MD Tunnelled Chest Tube Removal 08/05/15 1100 Signed Impressions: Service Date/Time: Wednesday, August 05, 2015 11:00 - CONCLUSION: Uncomplicated chest tube removal. Blaine Jackson MD Chest Tube Change 07/31/15 0000 Signed Impressions: Service Date/Time: Friday, July 31, 2015 14:34 - CONCLUSION: Uncomplicated reposition of previously placed chest tube as above. Blaine Jackson MD Chest Tube Insertion 07/30/15 0000 Signed Impressions: Service Date/Time: July 14:50 - CONCLUSION: Uncomplicated chest tube placement as above. Blaine Jackson MD Catheter Change 07/27/15 Signed Impressions: Service Date/Time: Monday, July 27, 2015 14:43 - CONCLUSION: Uncomplicated gastrostomy tube exchange as above. Blaine Jackson MD Chest CT 07/11/15 Signed Impressions: Service Date/Time: Saturday, July 11, 2015 09:49 - CONCLUSION: Scattered patchy densities significantly improved from previous study. Tiny anterior right basilar pneumothorax. Right-sided chest tube in good position. Néstor Matamoros MD Head CT 06/18/151902 Signed Impressions: Service Date/Time: June 19:31 - CONCLUSION: Diffuse atrophy unchanged. No acute intracranial findings. Kush Briscoe MD Abdomen/Pelvis CT 06/18/151902 Signed Impressions: Service Date/Time: June 19:36 - CONCLUSION: 1. Chronic nonspecific urinary bladder wall thickening. Bladder collapsed with Putnam catheter in place. 2. Chronic bilateral mid to lower lung zone groundglass opacity. 3. Nonobstructing left renal calculus. 4. Distended rectum. Kush Briscoe MD Objective Remarks GENERAL: 54-year-old male, cachectic, debilitated with contractures on tpiece 70%. HEENT: NC/AT. PERRL. MMM dry and pink. NECK: No JVD. 8.0 Distal XLT trach in place CARDIAC: RRR. S1/S2. No S4. No murmurs, clicks gallops or rubs. LUNGS: Tachypneic with respiratory rate in 30s on Tpiece with bilateral rhonchi. Equal breath sounds bilat, no wheeze. ABDOMEN: S/NT/ND. Bowel sounds present. EXTREMITIES: pulses are equal bilaterally. 1+ dependent pedal edema. Contractures and deformities of fingers. NEUROLOGY: Patient with significant contractures of the bilat lower extremity, upper extremities. Eyes open spontaneously. Temporal and facial muscle wasting , muscular atrophy all extremities. Procedures 07/26- PEG replacement 07/29- right pigtail catheter placement for new pneumothorax 07/29 Date of Insertion: Jul 30, 2015 A/P Assessment and Plan Neuro/Psych: Parkinson's disease Dementia Depression CT head 06/18/15: - diffuse atrophy unchanged. No acute intracranial findings Continue Sinemet 25/100 q8 via PEG, Seroquel 50 mg twice a day, olanzapine 5 mg a night, Klonopin 2 mg every 8 hours, Paxil 20 daily and Neurontin 300 mg twice a day. These are local [employer] home meds, dose of antipsychotics have been titrated up slightly since admit. Continue Lortab when necessary pain and fentanyl patch 50 g every 3 days for pain management. Fentanyl bolus prn breakthrough pain or if needed for turning/ nursing care/etc. Resp: Acute on chronic respiratory failure Chronic trach, Pneumonia Right pneumothorax status post pigtail catheter (resolved) On Tpiece during day and PSV using Bipap machine at night per pulmonology. Pulmonary Dr. Restrepo following. Pulm toilet, trach care. Exchanged to 8 Distal XLT on 08/15 to facilitate suctioning, trach care. Recommend patient never be downsized from this trach. Bronchodilators ( DuoNeb) Status post chest tube replacement by interventional radiology on 07/30, chest tube removed 08/04, repeat films do not indicate any pneumothorax CXR from 08/24 - no significant changes compared to prior study. Trach in place. Cardiac History of orthostasis History of CAD, HLP, Hypertension Continue Midodrine 5 mg twice a day Monitor HR and BP keep MAP>65mmHg GI: Chronic moderate protein energy malnutrition Dysphagia Status post PEG Hemorrhoids Gastroesophageal reflux disease - Tolerating Jevity 1.5 at 60 cc an hour per nutrition recommendations - Currently Prevacid 30 mg per PEG tube daily for GERD - Colace for bowel regimen. D/c senna FEN/renal: Nonobstructing left renal calculus - Monitor renal function, I/O's. electrolytes replacement per protocol. -Condom catheter in place. ID: Candiduria (cele tropicalis urine cx 08/17) ESBL positive Klebsiella/Pseudomonas pneumonia Stenotrophomonas in sputum 08/17 MRSA colonization sepsis UTI Klebsiella ESBL positive (has been treated) Watching off abx per ID: Diflucan 08/17-08/26 . Levaquin 08/20--08/26 for Stenotrophomonas. ID signed off, reconsult if needed. Completed course of meropenem for 08/11-08/20 for Klebsiella ESBL/pseudomonas pneumonia. On Lactinex tid Urine cx 08/17 - cele tropicalis Blood culture 08/17 negative sputum culture 08/17 - pseudomonas and Stenotrophomonas maltophilia. Urine culture: 08/02 Klebsiella pneumonia ESBL positive Urine culture: 08/02 Cele Tropicalis, C. Glabrata Sputum culture: 08/02 Pseudomonas, Klebsiella pneumonia ESBL positive Blood culture: 08/02 yeast species, Cele glabrata, Cele tropicalis - History of Multidrug resistant UTI- ESBL 02/19/15 , MRSA + 03/20/15 - Cele glabrata in urine 03/19/15 - Rechecked blood, sputum and urine cultures 07/06 no growth - 06/17 - blood cultures 2 - CONS/staph epi - 06/17 - sputum - ESBL positive Klebsiella/Pseudomonas Treated 15 days with tobramycin aerosols twice a day. - 06/17 - urine - C. glabrata/tropicalis - treated with Diflucan Endo: Euglycemic. Not requiring sliding scale Heme Anemia - Monitor CBC MSK Bilateral lower extremity Contractures Stage II sacral decubitus present on admission - Wound care evaluate and treat - Continue physical therapy Prophylaxis - GI - Prevacid - DVT - SCDs/ Lovenox. ACCESS: PIVs placed by vascular access team. Discussed with Dr. Pickard 08/27 Patients prognosis for meaningful recovery is extremely poor. Failing efforts at weaning, multiple infectious complications. Is appropriate for hospice as his condition is end-stage, terminal. Making efforts to discuss with healthcare proxy, Radha. Left message 08/29. CCT 30 mins Leena Mistry MD Aug 30, 2015 16:35
[2015-08-30 21:00] LABS: MEAN CORPUSCULAR HGB CONC 30.4 % (32.0-36.0)
[2015-08-30] MEDS: ENOXAPARIN SODIUM 40 MG/0.4 ML SYRINGE SQ SCH (21:32)
[2015-08-30] MEDS: OLANZapine 5 MG TAB GT SCH (21:33)
[2015-08-31] VITALS (16 sets, daily range): BP systolic 102–119; BP diastolic 69–82; PULSE 77–92; RESP 20–26; TEMP 97.2–98.6; O2SAT 97–100
--- NOTE | 2015-08-31 03:11 | RADRPT ---
EXAM DATE/TIME: 08/31/2015 02:05 [facility] COMPARISON: CHEST SINGLE AP, August 25, 2015, 2:35. INDICATIONS : Shortness of breath, possible pulmonary disease. MEDICAL HISTORY : Hypertension. Gastroesophageal reflux disease. Diabetes mellitus type II. SURGICAL HISTORY : Tracheostomy ENCOUNTER: Subsequent ACUITY: 1 month PAIN SCORE: Non-responsive. LOCATION: Bilateral chest FINDINGS: Single AP view of the chest. Tracheostomy tube remains in place. Lungs are clear. No evidence of pleu ral effusion or pneumothorax. Cardiomediastinal silhouette within normal limits. CONCLUSION: No acute cardiopulmonary disease identified. Kush Briscoe MD on August 31, 2015 at 3:08 Board Certified Radiologist. This report was verified electronically.
[2015-08-31 04:13] LABS: BICARBONATE 44.6 MEQ/L (21.0-32.0)
[2015-08-31] MEDS: HYOSCYAMINE SOLN 0.125 MG/ML 15 ML BTL PO SCH ×3 (05:00→21:52)
[2015-08-31] MEDS: CARBIDOPA/LEVODOPA 25 MG/100 MG TAB GT SCH ×3 (05:01→21:50)
[2015-08-31] MEDS: clonazePAM 1 MG TAB PO SCH ×3 (05:01→21:50)
[2015-08-31 06:33] LABS: AUTOMATED NEUTROPHIL # 7.8 TH/MM3 (1.8-7.7); BASOPHIL # 0.1 TH/MM3 (0-0.2); BASOPHIL % 0.6 % (0.0-2.0); EOSINOPHIL # 0.9 TH/MM3 (0-0.4); EOSINOPHIL % 7.7 % (0.0-4.0); HEMATOCRIT 32.2 % (39.0-51.0); HEMO FLAGS DIFF FINAL; LYMPH % 15.8 % (9.0-44.0); LYMPHOCYTE # 1.7 TH/MM3 (1.0-4.8); MEAN CELL VOLUME 86.7 FL (80.0-100.0); MEAN CORPUSCULAR HEMOGLOBIN 26.4 PG (27.0-34.0); MONO % 5.7 % (0.0-8.0); NEUT % 70.2 % (16.0-70.0); PLATELET COUNT 259 TH/MM3 (150-450); RED BLOOD COUNT 3.72 MIL/MM3 (4.50-5.90); RED CELL DISTRIBUTION WIDTH 14.3 % (11.6-17.2); WHITE BLOOD COUNT 11.1 TH/MM3 (4.0-11.0)
[2015-08-31] MEDS: REMOVE OLD PATCH TD SCH (08:00)
[2015-08-31] MEDS: fentaNYL 50 MCG/HR PATCH TD SCH (09:03)
[2015-08-31] MEDS: LANSOPRAZOLE SOLUTAB 30 MG TAB NG SCH (09:03)
[2015-08-31] MEDS: MIDODRINE 5 MG TAB G-TUBE SCH ×2 (09:03→21:51)
[2015-08-31] MEDS: GABAPENTIN 300 MG CAP G-TUBE SCH ×2 (09:03→21:51)
[2015-08-31] MEDS: PARoxetine HCL 20 MG TAB G-TUBE SCH (09:03)
[2015-08-31] MEDS: QUEtiapine FUMARATE 25 MG TAB G-TUBE SCH ×2 (09:03→21:51)
[2015-08-31] MEDS: LACTOBACILLUS ACIDOPHILUS TAB PO SCH ×3 (09:03→17:34)
[2015-08-31] MEDS: CHLORHEXIDINE 0.12% (ORAL KIT) 15 ML CUP MT SCH ×2 (09:04→20:00)
[2015-08-31] MEDS: SODIUM CHLORIDE 0.9% FLUSH 5 ML FLUSH IVF SCH ×2 (09:04→21:51)
[2015-08-31] MEDS: COLLAGENASE OINT 30 GM TUBE TOP SCH (09:04)
[2015-08-31] MEDS: ARTIFICIAL TEARS OPTH SOLN 15 ML BTL EACH EYE SCH ×3 (09:05→17:34)
--- NOTE | 2015-08-31 13:03 | HHI.CCPN ---
Subjective Remarks/Hospital Course 06/17: Pt is a 54 yr man with multiple medial problems including Parkinson's disease, advanced dementia, hyponatremia, anxiety, pneumonia, GERD, cognitive disorder, and multidrug resistant UTI- ESBL02/19/15 , who resides in a senior living. Pt by report was found by staff in senior living to be less alert and having respiratory difficultly and fevers. Pt was brought to ED adn placed on ventilator. His workup was inclusive of labs, chest xray and ct head and abd/pelvis. WBC 16.4, +UTI, lactic acid 4, troponin ,0.02, BUN/ cre 18/ 0.76. CT head 06/18/15: diffuse atrophy unchanged. No acute intracranial findings ct abd/ pelvis with IV contrast: 06/18/15 Conclusion: 1. Chronic nonspecific urinary bladder wall thickening. Bladder collapsed with Putnam catheter in place. 2.Chronic bilateral mid to lower zone groundglass opacity. 3. Nonobstructing left renal calculus. 4. Distended rectum Pt admitted and fluid and abx ordered. 06/18: Drowsy, easily arousable. On mechanical ventilation via tracheostomy. Tachypneic. Resting tremor noted. 06/19: Drowsy, arousable. On mechanical ventilation via tracheostomy. 06/20: Drowsy, arousable. Remains on mechanical ventilation via tracheostomy. We'll repeat blood cultures, UA and urine cultures. Fluconazole IV added in view of yeast in urine. 07/06: Reconsulted as patient return to the ventilator on a right ventricular due to tachypnea. Low-grade temperatures. Tolerating tube feeding. Extremity encephalopathic demented patient with difficult neurological examination. 07/07: Status post chest tube placement by IR for right pneumothorax 07/06. Afebrile. Tolerating tube feeds. Positive BM. Currently tachypneic on the ventilator. Does not appear to be any acute distress. 07/08: Afebrile. Tolerating tube feeding. He is comfortable currently on CPAP trials 11/10. Positive BM. 07/09: Afebrile. Tolerating tube feeding. Appears comfortable on T bar. Positive BM. 07/10: Afebrile. Eyes are open. Remained on T piece overnight. Tolerating tube feeding. 07/11: MAXIMUM TEMPERATURE 100. Currently 98.6. Eyes are open. On ACV overnight secondary to "tachypnea and sweating". Switching back to PSV trials today. Goal is T piece during daytime, CPAP at night. 07/12: No acute events overnight. On PSV 15/5 -attempt TP up to 6 hours today. No pneumothorax on chest x-ray 07/13: Placed back on full ventilator support for tachypnea. Otherwise clinically unchanged. No fever today 07/14: Patient was on T piece yesterday evening, placed back on PSV overnight, patient mechanical ventilation this morning. Patient appears to be struggling with mechanical ventilation. Patient placed back on PSV with improvement 07/15: Patient placed back on mechanical ventilation last evening due to respiratory rate. It was indicated patient was tachypnea can the 40s. Patient on mechanical ventilation this time with respiration rate mid 20s. Chest tube still in place without any output, chest x-ray still indicating resolution of pneumothorax. 07/16: Patient seen and examined today. Patient placed back on mechanical ventilation overnight due to respiratory rate. Even on mechanical ventilation patient has respiration rate in the 30s. Patient afebrile, blood pressure stable. Continue vent weaning 07/17: Patient seen and examined. Currently afebrile. Currently on CPAP 15/5 @ 40%. Patient is awake with open mouth resting in bed in no apparent acute distress. Tolerating tube feeding. 2 bowel movements. 07/18: No neurological changes. Afebrile. 2 bowel moments. Tolerating tube feeding. We'll attempt TP trials today. On CPAP since 07/15 07/19 No events overnight. On CPAP with PS: 10, PEEP: 5 and FIO2 35%. Afebrile. On no sedation. 07/20 No events overnight. Tolerating CPAP. Afebrile. 07/21: Remains on CPAP. Attempt T piece trial today. Afebrile. One bowel movement. Tolerating tube feeding. 07/22: Afebrile. Positive BM. Tolerating tube feeding. Noted switched tracheostomy to #6 Shiley cuffed fenestrated. Neurologically unchanged 07/23: Afebrile. Positive BM. Tolerating tube feeding. Questionable leak in exchange trach. Place back on a rate/ACV overnight. Insufflated seems to be doing better at the present time. Will check chest x-ray. Possible he might need #6 XLT versus replacement of chronic #8 Shiley. 07/24: Tolerating TP today, RR in low 30s patient appears comfortable. No acute events overnight 07/25: Remains off the ventilator more than 36 hours now. Intermittently tachypneic probably breathing. Chest x-ray was clear yesterday. No acute events reported overnight. PEG not functioning per RN 08/02: Patient was transferred back to critical care service due to continuing ventilator management, tachypnea. Patient clinical status with no significant change. Patient with low-grade fever 100.2, 08/03: Patient seen and examined today. No significant change in clinical status. Patient still with chronic tachypnea. Patient afebrile now. 08/04: Patient seen and examined today. No change in clinical status. Patient still continues to have chronic tachypnea. Patient afebrile. Continue vent weaning 08/05: Patient seen and examined today. Patient had chest tube removed yesterday , chest x-ray shows redevelopment of pneumothorax. Chest tube replaced. Otherwise, patient still on ventilator with tachypnea. Afebrile 08/06: Patient seen and examined today. Patient went to have chest tube placed, repeat chest x-ray did not indicate any pneumothorax. No overnight events. We' ll need to pursue LTAC placement 08/07 No events overnight. On ventilator via trach. Afebrile. 08/08 Patient tolerated CPAP x4 hrs yesterday. Afebrile. On no sedation. 08/09 No events overnight. Tolerated CPAP x 12 hrs yesterday. Afebrile. 08/10 Patient tolerated TP's x 12 hrs yesterday back on ACV overnight. 08/11 No events overnight, currently on TP's with 40% FIO2. Afebrile. 08/12 On CPAP 10/5. Tolerated Tpiece 3 hours earlier today. Afebrile. 08/13 On CPAP 10/5. Not tolerating CPAP as well over last few days and RT notes challenge with suctioning respiratory secretions adequately. Discussing with healthcare proxy regarding exchange trach to 8.0. 08/14 Nursing and RT staff having continued difficulty suctioning respiratory secretions via 6.0 tracheostomy. KAREN Garcia did not consent to stoma dilation and trach upsize yesterday but said she would call back and let me know but no return call. Contacted again today and left a message. Afebrile. On CPAP 10/5. Brow furrowing on exam, appears to be in pain but pain not localizable. Tolerating tube feeds, had BM yesterday 08/15 Not tolerating CPAP today. Contacted healthcare surrogate again and discussed need for trach change. She consented and trach was dilated and up- sized to 8.0 Distal XLT to facilitate pulmonary toilet and to address volume leak. 08/16 No events overnight. Remains on ventilator via trach. Afebrile. Tolerating TF. 08/17 No events overnight. Afebrile. 08/18 Patient tolerated CPAP x 4 hrs yesterday. Afebrile.On ventilator via trach. 08/19 On CPAP 25/06. Temp max 99.3 08/20 Stenotrophomonas in sputum, started on Levaquin per ID. Temp max 99.8. On CPAP 20/09. Tube feeds were held because PEG was clogged but now PEG is functioning. 08/21 No events overnight. Afebrile. Remains on ventilator via trach. Has been tolerating CPAP trials for last 2 days. 08/22 No events overnight. Afebrile , Has been on CPAP all night with PS: 20, PEEP; 5 and FIO2 35%. 08/23 No events overnight. Remains on CPAP, T:99.9 08/24 No events overnight. On CPAP PS 10, PEEP; 5 and FIO2 35% overnight. Afebrile. 08/25 No events overnight. Afebrile. On CPAP overnight with PS 8, PEEP: 5 and FIO2 35%, afebrile. Tolerating TF. 08/26 Tolerating Tpiece. 08/27 Tolerated Tpiece yesterday and overnight. However this evening desaturated and was placed back on CPAP. Dr. Mistry attempted to update daughter Radha Foreman and discuss his overall poor prognosis for recovery, but call got disconnected midway through call and could not reach her back 08/28 On PSV 10/5 40% today. Afebrile. 08/29 On CPAP overnight. Now on Tpiece 70% per pulmonology. Increased yellow secretions noted. Temp max 99.1 Nursing staff expresses concern that he appears uncomfortable during all nursing care. Called elsa Garcia to update , no answer, left message to call me. Subjective: 08/30: On CPAP overnight. Currently on T piece at 45%. Currently afebrile. Positive BM. Tolerating tube feeding. Objective - Vital Signs Date Time Temp Pulse Resp B/P Pulse Ox O2 Delivery O2 Flow Rate FiO2 08/31/15 12:00 98.5 92 26 115/69 98 08/31/15 11:00 T-Piece 6.00 40 Intake and Output 08/30/15 08/30/15 08/31/15 08:00 16:00 00:00 Intake Total 263 ml 725 ml 349 ml Output Total 50 ml 400 ml 350 ml Balance 213 ml 325 ml -1 ml Result Diagram: 08/31/15 0324 08/31/15 0324 Imaging Last Impressions Chest X-Ray 08/31/15 0000 Signed Impressions: Service Date/Time: Monday, August 31, 2015 02:05 - CONCLUSION: No acute cardiopulmonary disease identified. Kush Briscoe MD Tunnelled Chest Tube Removal 08/05/15 1100 Signed Impressions: Service Date/Time: Wednesday, August 05, 2015 11:00 - CONCLUSION: Uncomplicated chest tube removal. Blaine Jackson MD Chest Tube Change 07/31/15 0000 Signed Impressions: Service Date/Time: Friday, July 31, 2015 14:34 - CONCLUSION: Uncomplicated reposition of previously placed chest tube as above. Blaine Jackson MD Chest Tube Insertion 07/30/15 0000 Signed Impressions: Service Date/Time: July 14:50 - CONCLUSION: Uncomplicated chest tube placement as above. Blaine Jackson MD Catheter Change 07/27/15 0000 Signed Impressions: Service Date/Time: Monday, July 27, 2015 14:43 - CONCLUSION: Uncomplicated gastrostomy tube exchange as above. Blaine Jackson MD Chest CT 07/11/15 0000 Signed Impressions: Service Date/Time: Saturday, July 11, 2015 09:49 - CONCLUSION: Scattered patchy densities significantly improved from previous study. Tiny anterior right basilar pneumothorax. Right-sided chest tube in good position. Néstor Matamoros MD Head CT 06/18/151902 Signed Impressions: Service Date/Time: June 19:31 - CONCLUSION: Diffuse atrophy unchanged. No acute intracranial findings. Kush Briscoe MD Abdomen/Pelvis CT 06/18/151902 Signed Impressions: Service Date/Time: June 19:36 - CONCLUSION: 1. Chronic nonspecific urinary bladder wall thickening. Bladder collapsed with Putnam catheter in place. 2. Chronic bilateral mid to lower lung zone groundglass opacity. 3. Nonobstructing left renal calculus. 4. Distended rectum. Kush Briscoe MD Objective Remarks GENERAL: 54-year-old male, cachectic, debilitated with contractures on t-piece via tracheostomy 45%. HEENT: NC/AT. PERRL. MMM dry and pink. NECK: No JVD. 8.0 Distal XLT trach in place CARDIAC: RRR. S1/S2. No S4. No murmurs, clicks gallops or rubs. LUNGS: Coarse crackles are appreciated throughout all lung bagley. No wheezing ABDOMEN: S/NT/ND. Bowel sounds present. EXTREMITIES: 1+ dependent pedal edema. Contractures and deformities of fingers. Stage III coccyx/sacral decubitus ulcer NEUROLOGY: Patient with significant contractures of the bilat lower extremity, upper extremities. Eyes open spontaneously. Temporal and facial muscle wasting , muscular atrophy all extremities. Procedures 07/26- PEG replacement 07/29- right pigtail catheter placement for new pneumothorax 07/29 Urinary Catheter: No Assessment to: Continue Date of Insertion: Jul 30, 2015 Vascular Central Line Catheter: No Assessment to: Continue A/P Assessment and Plan Neuro/Psych: Parkinson's disease Cognitive disorder not otherwise specified Chronic encephalopathy Dementia Depression CT head 06/18/15: - diffuse atrophy unchanged. No acute intracranial findings Continue Sinemet 25/100 q8 via PEG, Seroquel 50 mg twice a day, olanzapine 5 mg a night, Klonopin 2 mg every 8 hours, Paxil 20 daily and Neurontin 300 mg twice a day. 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 Continue Lortab when necessary pain and fentanyl patch 50 g every 3 days for pain management. Fentanyl bolus prn breakthrough pain or if needed for turning/ nursing care/etc. Resp: Acute on chronic respiratory failure Chronic trach #8 Shiley distal XLT Pneumonia - resolved Right pneumothorax status post pigtail catheter 2 (resolved) On Tpiece during day and PSV using Bipap machine at night per pulmonology. Pulmonary Dr. Restrepo following. Pulm toilet, trach care. Exchanged to 8 Distal XLT on 08/15 to facilitate suctioning, trach care. Bronchodilators ( DuoNeb) every 6 hours rewritten Status post chest tube on 07/06. Removed 07/16. Replacement again by interventional radiology on 07/30, chest tube removed 08/04, repeat films do not indicate any pneumothorax CXR from 08/30 shows no focal pneumonia or pneumothorax Cardiac History of orthostasis History of CAD History dyslipidemia History of hypertension Continue Midodrine 5 mg twice a day. On 2.5 twice a day at home Monitor HR and BP keep MAP>65mmHg GI: Chronic moderate protein energy malnutrition Dysphagia Status post PEG Internal hemorrhoids Gastroesophageal reflux disease - Tolerating Jevity 1.5 at 60 cc an hour per nutrition recommendations - Currently Prevacid 30 mg per PEG tube daily for GERD - Currently not on bowel regimen secondary to diarrhea FEN/Renal: Nonobstructing left renal calculus Hypernatremia - Monitor renal function, I/O's. electrolytes replacement per protocol. - Condom catheter in place. ID: Candiduria (cele tropicalis urine cx 08/17) ESBL positive Klebsiella/Pseudomonas pneumonia Stenotrophomonas in sputum 08/17 MRSA colonization sepsis UTI Klebsiella ESBL positive (has been treated) Watching off abx per ID: Diflucan 08/17-08/26 . Levaquin 08/20--08/26 for Stenotrophomonas. ID signed off, reconsult if needed. Completed course of meropenem for 08/11-08/20 for Klebsiella ESBL/pseudomonas pneumonia. On Lactinex tid Pertinent cultures Urine cx 08/17 - cele tropicalis Blood culture 08/17 negative sputum culture 08/17 - pseudomonas and Stenotrophomonas maltophilia. Urine culture: 08/02 Klebsiella pneumonia ESBL positive Urine culture: 08/02 Cele Tropicalis, C. Glabrata Sputum culture: 08/02 Pseudomonas, Klebsiella pneumonia ESBL positive Blood culture: 08/02 yeast species, Cele glabrata, Cele tropicalis - History of Multidrug resistant UTI- ESBL 02/19/15 , MRSA + 03/20/15 - Cele glabrata in urine 03/19/15 - Rechecked blood, sputum and urine cultures 07/06 no growth - 06/17 - blood cultures 2 - CONS/staph epi - 06/17 - sputum - ESBL positive Klebsiella/Pseudomonas Treated 15 days with tobramycin aerosols twice a day. - 06/17 - urine - C. glabrata/tropicalis - treated with Diflucan Endo: Sliding-scale insulin if needed for glycemic control Heme Normocytic Anemia Leukocytosis - Monitor CBC intermittently MSK Bilateral lower extremity Contractures Stage III sacral decubitus present on admission - Wound care evaluate and treat. Currently on Santyl daily with wet-to-dry changes. - Currently has recommended bed - Continue physical therapy Prophylaxis - GI - Prevacid - DVT - SCDs/ Lovenox. ACCESS: PIVs placed by vascular access team. Critical Care: The total critical care time was 35 minutes. Time to perform other separately billable procedures was not included in the critical care time. Chad Oleary MD Aug 31, 2015 13:02
[2015-08-31] MEDS: RESP: ALBUTEROL 2.5 MG/IPRATROPIUM 0.5 MG NEB (SCH) NEB ×2 (15:02→21:31)
--- NOTE | 2015-08-31 19:44 | HHI.PR ---
Subjective Remarks On a T Bar Fio2 70 % . Has a fever. CXR was clear. On CPAP at HS. Remains Lethargic. On tube feeds. . Objective Vital Signs Date Time Temp Pulse Resp B/P Pulse Ox O2 Delivery O2 Flow Rate FiO2 08/31/15 18:00 79 08/31/15 16:00 82 08/31/15 16:00 98.6 81 22 119/82 97 08/31/15 15:00 96 T-Piece 6.00 40 08/31/15 14:00 89 08/31/15 12:00 98.5 92 26 115/69 98 08/31/15 12:00 83 08/31/15 11:00 96 T-Piece 6.00 40 08/31/15 10:00 90 08/31/15 08:27 98 T-piece 6.00 40 08/31/15 08:00 91 08/31/15 08:00 98.6 91 24 102/73 98 08/31/15 07:00 96 T-Piece 5.00 35 08/31/15 06:00 92 08/31/15 04:00 84 08/31/15 04:00 97.9 84 20 115/79 98 08/31/15 04:00 98 35 08/31/15 03:00 T-Piece 35 08/31/15 02:00 82 08/31/15 01:00 98 35 08/31/15 00:00 98.2 90 20 102/72 99 08/31/15 00:00 90 08/30/15 23:00 T-Piece 35 08/30/15 22:00 91 08/30/15 22:00 97 35 08/30/15 20:05 99 35 08/30/15 20:00 93 08/30/15 20:00 93 27 146/93 96 I/O 08/30/15 08/30/15 08/30/15 08/31/15 08/31/15 08/31/15 07:00 15:00 23:00 07:00 15:00 23:00 Intake Total 263 ml 725 ml 349 ml 401 ml 579 ml Output Total 50 ml 400 ml 350 ml 350 ml 850 ml Balance 213 ml 325 ml -1 ml 51 ml -271 ml IV Total 0 ml 0 ml 0 ml 0 ml Tube Feeding 263 ml 605 ml 349 ml 401 ml 579 ml Other 120 ml Output Urine Total 50 ml 400 ml 350 ml 350 ml 850 ml # Bowel Movements 3 4 1 1 3 Result Diagram: 08/31/154 08/31/154 Objective Remarks This is a thin white male who is Awake but no response to commands,with a trach tube in place. HEENT: Pupils are equal and reactive to light.Throat clear. Trach in neck CHEST: Occ wheeze heard. Decreased breath sounds . CARDIOVASCULAR: S1 and S2 is normal. ABDOMEN: Soft, nondistended. He has a PEG tube in place. EXTREMITIES: No edema.muscle wasting. NEURO: Lethargic and Does not move his extremities .Reflexes not elicited. Assessment and Plan Assessment and Plan IMPRESSION 1. Respiratory failure, ventilator dependent. 2. Sepsis, resolving. 3. UTI 4. Tracheobronchitis 5. Parkinson's disease 6. Dementia. 7. Severe Deconditioning. 8. Left Pneumothorax. Resolved. Plan : 1. Bipap 5/10, FIO2 35 % at HS 7 PM to 7 am. 2. Nebs qid , duoneb. 3. Cont Tube feeds at 60 CC 4. Cont T Bar 40 % for 12 hrs if tolerating. 5. Levsin .125 mg tid via peg. 6. Trach toilet and lavage. 8. Lovenox 40 Mg S/Q daily. 9. Arrange Bipap at N Home. 10. ID to see for need of antibiotics. Darren Kiser MD Aug 31, 2015 19:43
[2015-08-31] MEDS: ENOXAPARIN SODIUM 40 MG/0.4 ML SYRINGE SQ SCH (21:51)
[2015-08-31] MEDS: OLANZapine 5 MG TAB GT SCH (21:51)
[2015-09-01] VITALS (15 sets, daily range): BP systolic 96–127; BP diastolic 65–87; PULSE 72–92; RESP 20–27; TEMP 96.7–99.6; O2SAT 93–98
[2015-09-01] MEDS: RESP: ALBUTEROL 2.5 MG/IPRATROPIUM 0.5 MG NEB (SCH) NEB ×4 (03:10→20:38)
[2015-09-01] MEDS: CHLORHEXIDINE GLUCONATE 2 % 1 PACK (2 CLOTHS) TOP SCH (04:00)
[2015-09-01] MEDS: HYOSCYAMINE SOLN 0.125 MG/ML 15 ML BTL PO SCH (05:43)
[2015-09-01] MEDS: clonazePAM 1 MG TAB PO SCH ×3 (05:43→21:26)
[2015-09-01] MEDS: CARBIDOPA/LEVODOPA 25 MG/100 MG TAB GT SCH ×3 (05:43→21:26)
[2015-09-01] MEDS ORDERED: SODIUM CHLORIDE 23.4% INJ 38.5 MEQ in WATER STERILE FOR INJ 1,000 ML IV SCH ×2 (07:15→09:00)
--- NOTE | 2015-09-01 07:22 | HHI.CCPN ---
Subjective Remarks/Hospital Course 06/17: Pt is a 54 yr man with multiple medial problems including Parkinson's disease, advanced dementia, hyponatremia, anxiety, pneumonia, GERD, cognitive disorder, and multidrug resistant UTI- ESBL02/19/15 , who resides in a fdc. Pt by report was found by staff in fdc to be less alert and having respiratory difficultly and fevers. Pt was brought to ED adn placed on ventilator. His workup was inclusive of labs, chest xray and ct head and abd/pelvis. WBC 16.4, +UTI, lactic acid 4, troponin ,0.02, BUN/ cre 18/ 0.76. CT head 06/18/15: diffuse atrophy unchanged. No acute intracranial findings ct abd/ pelvis with IV contrast: 06/18/15 Conclusion: 1. Chronic nonspecific urinary bladder wall thickening. Bladder collapsed with Putnam catheter in place. 2.Chronic bilateral mid to lower zone groundglass opacity. 3. Nonobstructing left renal calculus. 4. Distended rectum Pt admitted and fluid and abx ordered. 06/18: Drowsy, easily arousable. On mechanical ventilation via tracheostomy. Tachypneic. Resting tremor noted. 06/19: Drowsy, arousable. On mechanical ventilation via tracheostomy. 06/20: Drowsy, arousable. Remains on mechanical ventilation via tracheostomy. We'll repeat blood cultures, UA and urine cultures. Fluconazole IV added in view of yeast in urine. 07/06: Reconsulted as patient return to the ventilator on a right ventricular due to tachypnea. Low-grade temperatures. Tolerating tube feeding. Extremity encephalopathic demented patient with difficult neurological examination. 07/07: Status post chest tube placement by IR for right pneumothorax 07/06. Afebrile. Tolerating tube feeds. Positive BM. Currently tachypneic on the ventilator. Does not appear to be any acute distress. 07/08: Afebrile. Tolerating tube feeding. He is comfortable currently on CPAP trials 11/10. Positive BM. 07/09: Afebrile. Tolerating tube feeding. Appears comfortable on T bar. Positive BM. 07/10: Afebrile. Eyes are open. Remained on T piece overnight. Tolerating tube feeding. 07/11: MAXIMUM TEMPERATURE 100. Currently 98.6. Eyes are open. On ACV overnight secondary to "tachypnea and sweating". Switching back to PSV trials today. Goal is T piece during daytime, CPAP at night. 07/12: No acute events overnight. On PSV 15/5 -attempt TP up to 6 hours today. No pneumothorax on chest x-ray 07/13: Placed back on full ventilator support for tachypnea. Otherwise clinically unchanged. No fever today 07/14: Patient was on T piece yesterday evening, placed back on PSV overnight, patient mechanical ventilation this morning. Patient appears to be struggling with mechanical ventilation. Patient placed back on PSV with improvement 07/15: Patient placed back on mechanical ventilation last evening due to respiratory rate. It was indicated patient was tachypnea can the 40s. Patient on mechanical ventilation this time with respiration rate mid 20s. Chest tube still in place without any output, chest x-ray still indicating resolution of pneumothorax. 07/16: Patient seen and examined today. Patient placed back on mechanical ventilation overnight due to respiratory rate. Even on mechanical ventilation patient has respiration rate in the 30s. Patient afebrile, blood pressure stable. Continue vent weaning 07/17: Patient seen and examined. Currently afebrile. Currently on CPAP 15/5 @ 40%. Patient is awake with open mouth resting in bed in no apparent acute distress. Tolerating tube feeding. 2 bowel movements. 07/18: No neurological changes. Afebrile. 2 bowel moments. Tolerating tube feeding. We'll attempt TP trials today. On CPAP since 07/15 07/19 No events overnight. On CPAP with PS: 10, PEEP: 5 and FIO2 35%. Afebrile. On no sedation. 07/20 No events overnight. Tolerating CPAP. Afebrile. 07/21: Remains on CPAP. Attempt T piece trial today. Afebrile. One bowel movement. Tolerating tube feeding. 07/22: Afebrile. Positive BM. Tolerating tube feeding. Noted switched tracheostomy to #6 Shiley cuffed fenestrated. Neurologically unchanged 07/23: Afebrile. Positive BM. Tolerating tube feeding. Questionable leak in exchange trach. Place back on a rate/ACV overnight. Insufflated seems to be doing better at the present time. Will check chest x-ray. Possible he might need #6 XLT versus replacement of chronic #8 Shiley. 07/24: Tolerating TP today, RR in low 30s patient appears comfortable. No acute events overnight 07/25: Remains off the ventilator more than 36 hours now. Intermittently tachypneic probably breathing. Chest x-ray was clear yesterday. No acute events reported overnight. PEG not functioning per RN 08/02: Patient was transferred back to critical care service due to continuing ventilator management, tachypnea. Patient clinical status with no significant change. Patient with low-grade fever 100.2, 08/03: Patient seen and examined today. No significant change in clinical status. Patient still with chronic tachypnea. Patient afebrile now. 08/04: Patient seen and examined today. No change in clinical status. Patient still continues to have chronic tachypnea. Patient afebrile. Continue vent weaning 08/05: Patient seen and examined today. Patient had chest tube removed yesterday , chest x-ray shows redevelopment of pneumothorax. Chest tube replaced. Otherwise, patient still on ventilator with tachypnea. Afebrile 08/06: Patient seen and examined today. Patient went to have chest tube placed, repeat chest x-ray did not indicate any pneumothorax. No overnight events. We' ll need to pursue LTAC placement 08/07 No events overnight. On ventilator via trach. Afebrile. 08/08 Patient tolerated CPAP x4 hrs yesterday. Afebrile. On no sedation. 08/09 No events overnight. Tolerated CPAP x 12 hrs yesterday. Afebrile. 08/10 Patient tolerated TP's x 12 hrs yesterday back on ACV overnight. 08/11 No events overnight, currently on TP's with 40% FIO2. Afebrile. 08/12 On CPAP 10/5. Tolerated Tpiece 3 hours earlier today. Afebrile. 08/13 On CPAP 10/5. Not tolerating CPAP as well over last few days and RT notes challenge with suctioning respiratory secretions adequately. Discussing with healthcare proxy regarding exchange trach to 8.0. 08/14 Nursing and RT staff having continued difficulty suctioning respiratory secretions via 6.0 tracheostomy. KAREN Garcia did not consent to stoma dilation and trach upsize yesterday but said she would call back and let me know but no return call. Contacted again today and left a message. Afebrile. On CPAP 10/5. Brow furrowing on exam, appears to be in pain but pain not localizable. Tolerating tube feeds, had BM yesterday 08/15 Not tolerating CPAP today. Contacted healthcare surrogate again and discussed need for trach change. She consented and trach was dilated and up- sized to 8.0 Distal XLT to facilitate pulmonary toilet and to address volume leak. 08/16 No events overnight. Remains on ventilator via trach. Afebrile. Tolerating TF. 08/17 No events overnight. Afebrile. 08/18 Patient tolerated CPAP x 4 hrs yesterday. Afebrile.On ventilator via trach. 08/19 On CPAP 25/06. Temp max 99.3 08/20 Stenotrophomonas in sputum, started on Levaquin per ID. Temp max 99.8. On CPAP 20/09. Tube feeds were held because PEG was clogged but now PEG is functioning. 08/21 No events overnight. Afebrile. Remains on ventilator via trach. Has been tolerating CPAP trials for last 2 days. 08/22 No events overnight. Afebrile , Has been on CPAP all night with PS: 20, PEEP; 5 and FIO2 35%. 08/23 No events overnight. Remains on CPAP, T:99.9 08/24 No events overnight. On CPAP PS 10, PEEP; 5 and FIO2 35% overnight. Afebrile. 08/25 No events overnight. Afebrile. On CPAP overnight with PS 8, PEEP: 5 and FIO2 35%, afebrile. Tolerating TF. 08/26 Tolerating Tpiece. 08/27 Tolerated Tpiece yesterday and overnight. However this evening desaturated and was placed back on CPAP. Dr. Mistry attempted to update daughter Radha Foreman and discuss his overall poor prognosis for recovery, but call got disconnected midway through call and could not reach her back 08/28 On PSV 10/5 40% today. Afebrile. 08/29 On CPAP overnight. Now on Tpiece 70% per pulmonology. Increased yellow secretions noted. Temp max 99.1 Nursing staff expresses concern that he appears uncomfortable during all nursing care. Called elsa Garcia to update , no answer, left message to call me. 08/30: On CPAP overnight. Currently on T piece at 45%. Currently afebrile. Positive BM. Tolerating tube feeding. Subjective: 08/31: On CPAP overnight. Will return T piece at 35%. MAXIMUM TEMPERATURE 99.6. 5 bowel movements. Tolerating tube feeds. Neurological examination unchanged. Objective - Vital Signs Date Time Temp Pulse Resp B/P Pulse Ox O2 Delivery O2 Flow Rate FiO2 09/01/15 06:00 84 09/01/15 04:00 99.6 20 99/69 97 09/01/15 04:00 35 09/01/15 03:00 T-Piece 08/31/15 15:00 6.00 Intake and Output 08/31/15 08/31/15 08/31/15 07:59 15:59 23:59 Intake Total 401 ml 579 ml 569 ml Output Total 350 ml 850 ml 250 ml Balance 51 ml -271 ml 319 ml Result Diagram: 08/31/15 0324 08/31/15 0324 Imaging Last Impressions Chest X-Ray 08/31/15 0000 Signed Impressions: Service Date/Time: Monday, August 31, 2015 02:05 - CONCLUSION: No acute cardiopulmonary disease identified. Kush Briscoe MD Tunnelled Chest Tube Removal 08/05/15 1100 Signed Impressions: Service Date/Time: Wednesday, August 05, 2015 11:00 - CONCLUSION: Uncomplicated chest tube removal. Blaine Jackson MD Chest Tube Change 07/31/15 0000 Signed Impressions: Service Date/Time: Friday, July 31, 2015 14:34 - CONCLUSION: Uncomplicated reposition of previously placed chest tube as above. Blaine Jackson MD Chest Tube Insertion 07/30/15 0000 Signed Impressions: Service Date/Time: July 14:50 - CONCLUSION: Uncomplicated chest tube placement as above. Blaine Jackson MD Catheter Change 07/27/15 0000 Signed Impressions: Service Date/Time: Monday, July 27, 2015 14:43 - CONCLUSION: Uncomplicated gastrostomy tube exchange as above. Blaine Jackson MD Chest CT 07/11/15 0000 Signed Impressions: Service Date/Time: Saturday, July 11, 2015 09:49 - CONCLUSION: Scattered patchy densities significantly improved from previous study. Tiny anterior right basilar pneumothorax. Right-sided chest tube in good position. Néstor Matamoros MD Head CT 06/18/151902 Signed Impressions: Service Date/Time: June 19:31 - CONCLUSION: Diffuse atrophy unchanged. No acute intracranial findings. Kush Briscoe MD Abdomen/Pelvis CT 06/18/151902 Signed Impressions: Service Date/Time: June 19:36 - CONCLUSION: 1. Chronic nonspecific urinary bladder wall thickening. Bladder collapsed with Putnam catheter in place. 2. Chronic bilateral mid to lower lung zone groundglass opacity. 3. Nonobstructing left renal calculus. 4. Distended rectum. Kush Briscoe MD Objective Remarks GENERAL: 54-year-old male, cachectic, debilitated with contractures on t-piece via tracheostomy 45%. HEENT: NC/AT. PERRL. MMM. OP without erythema or exudates NECK: No JVD. Supple. 8.0 Distal XLT trach in place CARDIAC: RRR. S1/S2. No S4. No murmurs, clicks gallops or rubs. LUNGS: Fine crackles are appreciated throughout all lung bagley. No inspiratory or expiratory wheezing ABDOMEN: S/NT/ND. Positive BS EXTREMITIES: 1+ dependent pedal edema. Contractures and deformities of fingers. Stage III coccyx/sacral decubitus ulcer NEUROLOGY: Patient with significant contractures of the bilat lower extremity, upper extremities. Eyes open spontaneously. Temporal and facial muscle wasting , muscular atrophy all extremities. Procedures 07/26- PEG replacement 07/29- right pigtail catheter placement for new pneumothorax 07/29 Urinary Catheter: No Assessment to: Continue Date of Insertion: Jul 30, 2015 Vascular Central Line Catheter: No Assessment to: Continue A/P Assessment and Plan Neuro/Psych: Parkinson's disease Cognitive disorder not otherwise specified Chronic encephalopathy Dementia Depression CT head 06/18/15: - diffuse atrophy unchanged. No acute intracranial findings Continue Sinemet 25/100 q8 via PEG, Seroquel 50 mg twice a day, olanzapine 5 mg a night, Klonopin 2 mg every 8 hours, Paxil 20 daily and Neurontin 300 mg twice a day. 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 Continue Lortab when necessary pain and fentanyl patch 50 g every 3 days for pain management. Fentanyl bolus prn breakthrough pain or if needed for turning/ nursing care/etc. Resp: Acute on chronic respiratory failure Chronic trach #8 Shiley distal XLT Pneumonia - resolved Right pneumothorax status post pigtail catheter 2 (resolved) On Tpiece during day and PSV using Bipap machine at night per pulmonology. Pulmonary Dr. Restrepo following. Pulm toilet, trach care. Exchanged to 8 Distal XLT on 08/15 to facilitate suctioning, trach care. Bronchodilators ( DuoNeb) every 6 hours rewritten Status post chest tube on 07/06. Removed 07/16. Replacement again by interventional radiology on 07/30, chest tube removed 08/04, repeat films do not indicate any pneumothorax CXR from 08/30 shows no focal pneumonia or pneumothorax Cardiac History of orthostasis History of CAD History dyslipidemia History of hypertension Continue Midodrine 5 mg twice a day. On 2.5 twice a day at home Monitor HR and BP keep MAP>65mmHg GI: Chronic moderate protein energy malnutrition Dysphagia Status post PEG Internal hemorrhoids Gastroesophageal reflux disease - Tolerating Jevity 1.5 at 60 cc an hour per nutrition recommendations - Currently Prevacid 30 mg per PEG tube daily for GERD - Currently not on bowel regimen secondary to diarrhea FEN/Renal: Nonobstructing left renal calculus Hypernatremia - Monitor renal function, I/O's. electrolytes replacement per protocol. - Condom catheter in place. - Free water 200 every 8. ID: Candiduria (cele tropicalis urine cx 08/17) ESBL positive Klebsiella/Pseudomonas pneumonia Stenotrophomonas in sputum 08/17 MRSA colonization sepsis UTI Klebsiella ESBL positive (has been treated) Watching off abx per ID: Diflucan 08/17-08/26 . Levaquin 08/20--08/26 for Stenotrophomonas. ID signed off, reconsult if needed. Completed course of meropenem for 08/11-08/20 for Klebsiella ESBL/pseudomonas pneumonia. On Lactinex tid Pertinent cultures Urine cx 08/17 - cele tropicalis Blood culture 08/17 negative sputum culture 08/17 - pseudomonas and Stenotrophomonas maltophilia. Urine culture: 08/02 Klebsiella pneumonia ESBL positive Urine culture: 08/02 Cele Tropicalis, C. Glabrata Sputum culture: 08/02 Pseudomonas, Klebsiella pneumonia ESBL positive Blood culture: 08/02 yeast species, Cele glabrata, Cele tropicalis - History of Multidrug resistant UTI- ESBL 02/19/15 , MRSA + 03/20/15 - Cele glabrata in urine 03/19/15 - Rechecked blood, sputum and urine cultures 07/06 no growth - 06/17 - blood cultures 2 - CONS/staph epi - 06/17 - sputum - ESBL positive Klebsiella/Pseudomonas Treated 15 days with tobramycin aerosols twice a day. - 06/17 - urine - C. glabrata/tropicalis - treated with Diflucan Endo: Sliding-scale insulin if needed for glycemic control Heme Normocytic Anemia Leukocytosis - Monitor CBC intermittently MSK Bilateral lower extremity Contractures Stage III sacral decubitus present on admission - Wound care evaluate and treat. Currently on Santyl daily with wet-to-dry changes. - Currently has recommended bed - Continue physical therapy Prophylaxis - GI - Prevacid - DVT - SCDs/ Lovenox. ACCESS: PIVs placed by vascular access team. Critical Care: The total care time was 35 minutes. Time to perform other separately billable procedures was not included in the critical care time. Chad Oleary MD Sep 01, 2015 07:22
[2015-09-01] MEDS: CHLORHEXIDINE 0.12% (ORAL KIT) 15 ML CUP MT SCH ×2 (08:04→21:25)
[2015-09-01] MEDS: ARTIFICIAL TEARS OPTH SOLN 15 ML BTL EACH EYE SCH ×3 (08:05→17:05)
[2015-09-01] MEDS: PARoxetine HCL 20 MG TAB G-TUBE SCH (08:05)
[2015-09-01] MEDS: GABAPENTIN 300 MG CAP G-TUBE SCH ×2 (08:05→21:25)
[2015-09-01] MEDS: QUEtiapine FUMARATE 25 MG TAB G-TUBE SCH ×2 (08:05→21:25)
[2015-09-01] MEDS: MIDODRINE 5 MG TAB G-TUBE SCH ×2 (08:05→21:26)
[2015-09-01] MEDS: LANSOPRAZOLE SOLUTAB 30 MG TAB NG SCH (08:06)
[2015-09-01] MEDS: SODIUM CHLORIDE 0.9% FLUSH 5 ML FLUSH IVF SCH ×2 (08:06→21:26)
[2015-09-01] MEDS: LACTOBACILLUS ACIDOPHILUS TAB PO SCH ×3 (08:06→17:04)
[2015-09-01] MEDS: COLLAGENASE OINT 30 GM TUBE TOP SCH (08:06)
--- NOTE | 2015-09-01 12:55 | HHI.PR ---
Subjective Remarks On a T Bar Fio2 35 % % . CXR was clear. On CPAP at HS. No change overall. Remains Lethargic. On tube feeds. . Objective Vital Signs Date Time Temp Pulse Resp B/P Pulse Ox O2 Delivery O2 Flow Rate FiO2 09/01/15 12:00 97.4 80 23 115/87 97 09/01/15 12:00 80 09/01/15 11:00 T-Piece 6.00 35 09/01/15 10:00 84 09/01/15 08:25 96 T-piece 40 09/01/15 08:00 98.4 84 22 106/73 98 09/01/15 08:00 84 09/01/15 07:00 Bi-Pap 6.00 35 09/01/15 06:00 84 09/01/15 04:00 91 09/01/15 04:00 99.6 91 20 99/69 97 09/01/15 04:00 97 35 09/01/15 03:00 95 T-Piece 35 09/01/15 02:00 87 09/01/15 01:05 97 35 09/01/15 00:00 92 09/01/15 00:00 98.8 92 25 96/65 97 08/31/15 23:00 97 T-Piece 35 08/31/15 22:00 85 08/31/15 21:35 98 BiPAP 35 08/31/15 21:32 100 35 08/31/15 20:00 77 08/31/15 20:00 97.2 77 21 119/78 98 08/31/15 19:00 99 T-Piece 35 08/31/15 18:00 79 08/31/15 16:00 82 08/31/15 16:00 98.6 81 22 119/82 97 08/31/15 15:00 96 T-Piece 6.00 40 08/31/15 14:00 89 I/O 08/31/15 08/31/15 08/31/15 09/01/15 09/01/15 09/01/15 07:00 15:00 23:00 07:00 15:00 23:00 Intake Total 401 ml 579 ml 569 ml 709 ml Output Total 350 ml 850 ml 250 ml 200 ml Balance 51 ml -271 ml 319 ml 509 ml IV Total 0 ml Tube Feeding 401 ml 579 ml 569 ml 459 ml Other 250 ml Output Urine Total 350 ml 850 ml 250 ml 200 ml # Bowel Movements 1 3 1 1 Result Diagram: 08/31/1532308/31/15323 Objective Remarks This is a thin white male who is Awake but no response to commands,with a trach tube in place. HEENT: Pupils are equal and reactive to light.Throat clear. Trach in neck. Thick secretions. CHEST: Occ wheeze heard. Decreased breath sounds . CARDIOVASCULAR: S1 and S2 is normal. ABDOMEN: Soft, nondistended. He has a PEG tube in place. EXTREMITIES: No edema.muscle wasting. NEURO: Lethargic and Does not move his extremities .Reflexes not elicited. Assessment and Plan Assessment and Plan IMPRESSION 1. Respiratory failure, ventilator dependent. 2. Sepsis, resolving. 3. UTI 4. Tracheobronchitis 5. Parkinson's disease 6. Dementia. 7. Severe Deconditioning. 8. Left Pneumothorax. Resolved. Plan : 1. Bipap 5/15, FIO2 30 % at HS 10 PM to 7 am. 2. Nebs qid , duoneb. 3. Cont Tube feeds at 60 CC 4. Cont T Bar 35 % for 15 hrs if tolerating. 5. D/C levsin. 6. Trach toilet and lavage. 8. Lovenox 40 Mg S/Q daily. 9. Arrange Bipap at Home. Darren Kiser MD Sep 01, 2015 12:55
[2015-09-01] MEDS: FREE WATER G-TUBE SCH ×2 (13:45→21:26)
[2015-09-01] MEDS: ENOXAPARIN SODIUM 40 MG/0.4 ML SYRINGE SQ SCH (21:25)
[2015-09-01] MEDS: OLANZapine 5 MG TAB GT SCH (21:26)
[2015-09-02] VITALS (15 sets, daily range): BP systolic 96–115; BP diastolic 60–77; PULSE 78–93; RESP 20–26; TEMP 97.7–99.2; O2SAT 90–99
[2015-09-02] MEDS: RESP: ALBUTEROL 2.5 MG/IPRATROPIUM 0.5 MG NEB (SCH) NEB ×4 (03:48→19:49)
[2015-09-02] MEDS: CHLORHEXIDINE GLUCONATE 2 % 1 PACK (2 CLOTHS) TOP SCH (04:00)
[2015-09-02 05:44] LABS: HEMATOCRIT 31.4 % (39.0-51.0); MEAN CELL VOLUME 86.3 FL (80.0-100.0); MEAN CORPUSCULAR HEMOGLOBIN 27.1 PG (27.0-34.0); MEAN CORPUSCULAR HGB CONC 31.4 % (32.0-36.0); PLATELET COUNT 243 TH/MM3 (150-450); RED BLOOD COUNT 3.64 MIL/MM3 (4.50-5.90); RED CELL DISTRIBUTION WIDTH 15.1 % (11.6-17.2); REVIEW FLAG FINAL; WHITE BLOOD COUNT 12.3 TH/MM3 (4.0-11.0)
[2015-09-02 05:47] LABS: BICARBONATE 39.7 MEQ/L (21.0-32.0); MAGNESIUM 2.2 MG/DL (1.5-2.5); POTASSIUM 4.5 MEQ/L (3.5-5.1)
[2015-09-02] MEDS: FREE WATER G-TUBE SCH ×3 (05:59→22:00)
[2015-09-02] MEDS: clonazePAM 1 MG TAB PO SCH ×3 (05:59→22:03)
[2015-09-02] MEDS: CARBIDOPA/LEVODOPA 25 MG/100 MG TAB GT SCH ×3 (05:59→22:02)
[2015-09-02] MEDS: QUEtiapine FUMARATE 25 MG TAB G-TUBE SCH ×2 (07:56→20:49)
[2015-09-02] MEDS: MIDODRINE 5 MG TAB G-TUBE SCH ×2 (07:56→20:49)
[2015-09-02] MEDS: GABAPENTIN 300 MG CAP G-TUBE SCH ×2 (07:56→20:49)
[2015-09-02] MEDS: LANSOPRAZOLE SOLUTAB 30 MG TAB NG SCH (07:56)
[2015-09-02] MEDS: SODIUM CHLORIDE 0.9% FLUSH 5 ML FLUSH IVF SCH ×2 (07:57→20:49)
[2015-09-02] MEDS: CHLORHEXIDINE 0.12% (ORAL KIT) 15 ML CUP MT SCH ×2 (07:57→20:49)
[2015-09-02] MEDS: ARTIFICIAL TEARS OPTH SOLN 15 ML BTL EACH EYE SCH ×3 (07:57→18:35)
[2015-09-02] MEDS: LACTOBACILLUS ACIDOPHILUS TAB PO SCH ×3 (07:57→18:35)
[2015-09-02] MEDS: PARoxetine HCL 20 MG TAB G-TUBE SCH (07:57)
[2015-09-02] MEDS: COLLAGENASE OINT 30 GM TUBE TOP SCH (07:59)
--- NOTE | 2015-09-02 09:51 | HHI.CCPN ---
Subjective Remarks/Hospital Course 06/17: Pt is a 54 yr man with multiple medial problems including Parkinson's disease, advanced dementia, hyponatremia, anxiety, pneumonia, GERD, cognitive disorder, and multidrug resistant UTI- ESBL02/19/15 , who resides in a group home. Pt by report was found by staff in group home to be less alert and having respiratory difficultly and fevers. Pt was brought to ED adn placed on ventilator. His workup was inclusive of labs, chest xray and ct head and abd/pelvis. WBC 16.4, +UTI, lactic acid 4, troponin ,0.02, BUN/ cre 18/ 0.76. CT head 06/18/15: diffuse atrophy unchanged. No acute intracranial findings ct abd/ pelvis with IV contrast: 06/18/15 Conclusion: 1. Chronic nonspecific urinary bladder wall thickening. Bladder collapsed with Putnam catheter in place. 2.Chronic bilateral mid to lower zone groundglass opacity. 3. Nonobstructing left renal calculus. 4. Distended rectum Pt admitted and fluid and abx ordered. 06/18: Drowsy, easily arousable. On mechanical ventilation via tracheostomy. Tachypneic. Resting tremor noted. 06/19: Drowsy, arousable. On mechanical ventilation via tracheostomy. 06/20: Drowsy, arousable. Remains on mechanical ventilation via tracheostomy. We'll repeat blood cultures, UA and urine cultures. Fluconazole IV added in view of yeast in urine. 07/06: Reconsulted as patient return to the ventilator on a right ventricular due to tachypnea. Low-grade temperatures. Tolerating tube feeding. Extremity encephalopathic demented patient with difficult neurological examination. 07/07: Status post chest tube placement by IR for right pneumothorax 07/06. Afebrile. Tolerating tube feeds. Positive BM. Currently tachypneic on the ventilator. Does not appear to be any acute distress. 07/08: Afebrile. Tolerating tube feeding. He is comfortable currently on CPAP trials 11/10. Positive BM. 07/09: Afebrile. Tolerating tube feeding. Appears comfortable on T bar. Positive BM. 07/10: Afebrile. Eyes are open. Remained on T piece overnight. Tolerating tube feeding. 07/11: MAXIMUM TEMPERATURE 100. Currently 98.6. Eyes are open. On ACV overnight secondary to "tachypnea and sweating". Switching back to PSV trials today. Goal is T piece during daytime, CPAP at night. 07/12: No acute events overnight. On PSV 15/5 -attempt TP up to 6 hours today. No pneumothorax on chest x-ray 07/13: Placed back on full ventilator support for tachypnea. Otherwise clinically unchanged. No fever today 07/14: Patient was on T piece yesterday evening, placed back on PSV overnight, patient mechanical ventilation this morning. Patient appears to be struggling with mechanical ventilation. Patient placed back on PSV with improvement 07/15: Patient placed back on mechanical ventilation last evening due to respiratory rate. It was indicated patient was tachypnea can the 40s. Patient on mechanical ventilation this time with respiration rate mid 20s. Chest tube still in place without any output, chest x-ray still indicating resolution of pneumothorax. 07/16: Patient seen and examined today. Patient placed back on mechanical ventilation overnight due to respiratory rate. Even on mechanical ventilation patient has respiration rate in the 30s. Patient afebrile, blood pressure stable. Continue vent weaning 07/17: Patient seen and examined. Currently afebrile. Currently on CPAP 15/5 @ 40%. Patient is awake with open mouth resting in bed in no apparent acute distress. Tolerating tube feeding. 2 bowel movements. 07/18: No neurological changes. Afebrile. 2 bowel moments. Tolerating tube feeding. We'll attempt TP trials today. On CPAP since 07/15 07/19 No events overnight. On CPAP with PS: 10, PEEP: 5 and FIO2 35%. Afebrile. On no sedation. 07/20 No events overnight. Tolerating CPAP. Afebrile. 07/21: Remains on CPAP. Attempt T piece trial today. Afebrile. One bowel movement. Tolerating tube feeding. 07/22: Afebrile. Positive BM. Tolerating tube feeding. Noted switched tracheostomy to #6 Shiley cuffed fenestrated. Neurologically unchanged 07/23: Afebrile. Positive BM. Tolerating tube feeding. Questionable leak in exchange trach. Place back on a rate/ACV overnight. Insufflated seems to be doing better at the present time. Will check chest x-ray. Possible he might need #6 XLT versus replacement of chronic #8 Shiley. 07/24: Tolerating TP today, RR in low 30s patient appears comfortable. No acute events overnight 07/25: Remains off the ventilator more than 36 hours now. Intermittently tachypneic probably breathing. Chest x-ray was clear yesterday. No acute events reported overnight. PEG not functioning per RN 08/02: Patient was transferred back to critical care service due to continuing ventilator management, tachypnea. Patient clinical status with no significant change. Patient with low-grade fever 100.2, 08/03: Patient seen and examined today. No significant change in clinical status. Patient still with chronic tachypnea. Patient afebrile now. 08/04: Patient seen and examined today. No change in clinical status. Patient still continues to have chronic tachypnea. Patient afebrile. Continue vent weaning 08/05: Patient seen and examined today. Patient had chest tube removed yesterday , chest x-ray shows redevelopment of pneumothorax. Chest tube replaced. Otherwise, patient still on ventilator with tachypnea. Afebrile 08/06: Patient seen and examined today. Patient went to have chest tube placed, repeat chest x-ray did not indicate any pneumothorax. No overnight events. We' ll need to pursue LTAC placement 08/07 No events overnight. On ventilator via trach. Afebrile. 08/08 Patient tolerated CPAP x4 hrs yesterday. Afebrile. On no sedation. 08/09 No events overnight. Tolerated CPAP x 12 hrs yesterday. Afebrile. 08/10 Patient tolerated TP's x 12 hrs yesterday back on ACV overnight. 08/11 No events overnight, currently on TP's with 40% FIO2. Afebrile. 08/12 On CPAP 10/5. Tolerated Tpiece 3 hours earlier today. Afebrile. 08/13 On CPAP 10/5. Not tolerating CPAP as well over last few days and RT notes challenge with suctioning respiratory secretions adequately. Discussing with healthcare proxy regarding exchange trach to 8.0. 08/14 Nursing and RT staff having continued difficulty suctioning respiratory secretions via 6.0 tracheostomy. KAREN Garcia did not consent to stoma dilation and trach upsize yesterday but said she would call back and let me know but no return call. Contacted again today and left a message. Afebrile. On CPAP 10/5. Brow furrowing on exam, appears to be in pain but pain not localizable. Tolerating tube feeds, had BM yesterday 08/15 Not tolerating CPAP today. Contacted healthcare surrogate again and discussed need for trach change. She consented and trach was dilated and up- sized to 8.0 Distal XLT to facilitate pulmonary toilet and to address volume leak. 08/16 No events overnight. Remains on ventilator via trach. Afebrile. Tolerating TF. 08/17 No events overnight. Afebrile. 08/18 Patient tolerated CPAP x 4 hrs yesterday. Afebrile.On ventilator via trach. 08/19 On CPAP 25/06. Temp max 99.3 08/20 Stenotrophomonas in sputum, started on Levaquin per ID. Temp max 99.8. On CPAP 20/09. Tube feeds were held because PEG was clogged but now PEG is functioning. 08/21 No events overnight. Afebrile. Remains on ventilator via trach. Has been tolerating CPAP trials for last 2 days. 08/22 No events overnight. Afebrile , Has been on CPAP all night with PS: 20, PEEP; 5 and FIO2 35%. 08/23 No events overnight. Remains on CPAP, T:99.9 08/24 No events overnight. On CPAP PS 10, PEEP; 5 and FIO2 35% overnight. Afebrile. 08/25 No events overnight. Afebrile. On CPAP overnight with PS 8, PEEP: 5 and FIO2 35%, afebrile. Tolerating TF. 08/26 Tolerating Tpiece. 08/27 Tolerated Tpiece yesterday and overnight. However this evening desaturated and was placed back on CPAP. Dr. Mistry attempted to update daughter Radha Foreman and discuss his overall poor prognosis for recovery, but call got disconnected midway through call and could not reach her back 08/28 On PSV 10/5 40% today. Afebrile. 08/29 On CPAP overnight. Now on Tpiece 70% per pulmonology. Increased yellow secretions noted. Temp max 99.1 Nursing staff expresses concern that he appears uncomfortable during all nursing care. Called elsa Garcia to update , no answer, left message to call me. 08/30: On CPAP overnight. Currently on T piece at 45%. Currently afebrile. Positive BM. Tolerating tube feeding. 08/31: On CPAP overnight. Will return T piece at 35%. MAXIMUM TEMPERATURE 99.6. 5 bowel movements. Tolerating tube feeds. Neurological examination unchanged. Subjective: 09/01: Tmax 99.2. Currently afebrile. Currently in TPs at 35%. 7 bowel movement overnight. Tolerating tube feeding. Objective - Vital Signs Date Time Temp Pulse Resp B/P Pulse Ox O2 Delivery O2 Flow Rate FiO2 09/02/15 08:17 98 T-piece 40 09/02/15 08:00 97.7 87 24 102/60 09/02/15 07:00 6.00 Intake and Output 09/01/15 09/01/15 09/02/15 08:00 16:00 00:00 Intake Total 709 ml 1127 ml 1196 ml Output Total 200 ml 450 ml 500 ml Balance 509 ml 677 ml 696 ml Result Diagram: 09/02/15 0339 09/02/15 0339 Imaging Last Impressions Chest X-Ray 08/31/15 0000 Signed Impressions: Service Date/Time: Monday, August 31, 2015 02:05 - CONCLUSION: No acute cardiopulmonary disease identified. Kush Briscoe MD Tunnelled Chest Tube Removal 08/05/15 1100 Signed Impressions: Service Date/Time: Wednesday, August 05, 2015 11:00 - CONCLUSION: Uncomplicated chest tube removal. Blaine Jackson MD Chest Tube Change 07/31/15 0000 Signed Impressions: Service Date/Time: Friday, July 31, 2015 14:34 - CONCLUSION: Uncomplicated reposition of previously placed chest tube as above. Blaine Jackson MD Chest Tube Insertion 07/30/15 0000 Signed Impressions: Service Date/Time: July 14:50 - CONCLUSION: Uncomplicated chest tube placement as above. Blaine Jackson MD Catheter Change 07/27/15 0000 Signed Impressions: Service Date/Time: Monday, July 27, 2015 14:43 - CONCLUSION: Uncomplicated gastrostomy tube exchange as above. Blaine Jackson MD Chest CT 07/11/15 0000 Signed Impressions: Service Date/Time: Saturday, July 11, 2015 09:49 - CONCLUSION: Scattered patchy densities significantly improved from previous study. Tiny anterior right basilar pneumothorax. Right-sided chest tube in good position. Néstor Matamoros MD Head CT 06/18/151902 Signed Impressions: Service Date/Time: June 19:31 - CONCLUSION: Diffuse atrophy unchanged. No acute intracranial findings. Kush Briscoe MD Abdomen/Pelvis CT 06/18/151902 Signed Impressions: Service Date/Time: , June 18, 2015 19:36 - CONCLUSION: 1. Chronic nonspecific urinary bladder wall thickening. Bladder collapsed with Putnam catheter in place. 2. Chronic bilateral mid to lower lung zone groundglass opacity. 3. Nonobstructing left renal calculus. 4. Distended rectum. Kush Briscoe MD Objective Remarks GENERAL: 54-year-old male, cachectic, debilitated with contractures on t-piece via tracheostomy 45%. HEENT: NC/AT. PERRL. MMM. OP without erythema or exudates NECK: No JVD. Supple. 8.0 Distal XLT trach in place CARDIAC: RRR. S1/S2. No S4. No murmurs, clicks gallops or rubs. LUNGS: Fine crackles are appreciated throughout all lung bagley. No inspiratory or expiratory wheezing ABDOMEN: S/NT/ND. Positive BS EXTREMITIES: 1+ dependent pedal edema. Contractures and deformities of fingers. Stage III coccyx/sacral decubitus ulcer NEUROLOGY: Patient with significant contractures of the bilat lower extremity, upper extremities. Eyes open spontaneously. Temporal and facial muscle wasting , muscular atrophy all extremities. Procedures 07/26- PEG replacement 07/29- right pigtail catheter placement for new pneumothorax 07/29 Date of Insertion: Jul 30, 2015 A/P Assessment and Plan Neuro/Psych: Parkinson's disease Cognitive disorder not otherwise specified Chronic encephalopathy Dementia Depression CT head 06/18/15: - diffuse atrophy unchanged. No acute intracranial findings Continue Sinemet 25/100 q8 via PEG, Seroquel 50 mg twice a day, olanzapine 5 mg a night, Klonopin 2 mg every 8 hours, Paxil 20 daily and Neurontin 300 mg twice a day. These are [employer] home medications, dose of antipsychotics have been titrated up slightly since admit. Continue Lortab when necessary pain and fentanyl patch 50 g every 3 days for pain management. Fentanyl bolus prn breakthrough pain or if needed for turning/ nursing care/etc. Resp: Acute on chronic respiratory failure Chronic trach #8 Shiley distal XLT Pneumonia - resolved Right pneumothorax status post pigtail catheter 2 (resolved) On Tpiece at 35% 15 hours during day and PSV using Bipap /5 at 35% at night from 10 PM to 7 AM per pulmonology. Pulmonary Dr. Kiser following. Pulm toilet, trach care. Exchanged to 8 Distal XLT on 08/15 to facilitate suctioning, trach care. Bronchodilators ( DuoNeb) every 6 hours rewritten Status post chest tube on 07/06. Removed 07/16. Replacement again by interventional radiology on 07/30, chest tube removed 08/04, repeat films do not indicate any pneumothorax CXR from 08/30 shows no focal pneumonia or pneumothorax Cardiac History of orthostasis History of CAD History dyslipidemia History of hypertension Continue Midodrine 5 mg twice a day. On 2.5 twice a day at home Monitor HR and BP keep MAP>65mmHg GI: Chronic moderate protein energy malnutrition Dysphagia Status post PEG Internal hemorrhoids Gastroesophageal reflux disease - Tolerating Jevity 1.5 at 60 cc an hour per nutrition recommendations - Currently Prevacid 30 mg per PEG tube daily for GERD - Currently not on bowel regimen secondary to diarrhea FEN/Renal: Nonobstructing left renal calculus Hypernatremia - Monitor renal function, I/O's. electrolytes replacement per protocol. - Condom catheter in place. - Free water 200 every 8. ID: Candiduria (cele tropicalis urine cx 08/17) ESBL positive Klebsiella/Pseudomonas pneumonia Stenotrophomonas in sputum 08/17 MRSA colonization sepsis UTI Klebsiella ESBL positive (has been treated) Watching off abx per ID: Diflucan 08/17-08/26 . Levaquin 08/20--08/26 for Stenotrophomonas. ID signed off, reconsult if needed. Completed course of meropenem for 08/11-08/20 for Klebsiella ESBL/pseudomonas pneumonia. On Lactinex tid Pertinent cultures Urine cx 08/17 - cele tropicalis Blood culture 08/17 negative sputum culture 08/17 - pseudomonas and Stenotrophomonas maltophilia. Urine culture: 08/02 Klebsiella pneumonia ESBL positive Urine culture: 08/02 Cele Tropicalis, C. Glabrata Sputum culture: 08/02 Pseudomonas, Klebsiella pneumonia ESBL positive Blood culture: 08/02 yeast species, Cele glabrata, Cele tropicalis - History of Multidrug resistant UTI- ESBL 02/19/15 , MRSA + 03/20/15 - Cele glabrata in urine 03/19/15 - Rechecked blood, sputum and urine cultures 07/06 no growth - 06/17 - blood cultures 2 - CONS/staph epi - 06/17 - sputum - ESBL positive Klebsiella/Pseudomonas Treated 15 days with tobramycin aerosols twice a day. - 06/17 - urine - C. glabrata/tropicalis - treated with Diflucan Endo: Sliding-scale insulin if needed for glycemic control Heme Normocytic Anemia Leukocytosis - Monitor CBC intermittently MSK Bilateral lower extremity Contractures Stage III sacral decubitus present on admission - Wound care evaluate and treat. Currently on Santyl daily with wet-to-dry changes. - Currently has recommended bed - Continue physical therapy Prophylaxis - GI - Prevacid - DVT - SCDs/ Lovenox. ACCESS: PIVs placed by vascular access team. Critical Care: The total care time was 35 minutes. Time to perform other separately billable procedures was not included in the critical care time. Discussed with Dr. Kiser. Tarsha to transfer to [address] [place] [address] by nurses station. Continue BiPAP at night via trach with T bar during daytime. We assigned care to the hospitalist in a.m. 09/02 Chad Oleary MD Sep 02, 2015 09:51
--- NOTE | 2015-09-02 14:52 | HHI.HCPN ---
Reason for visit a. To assist with evaluation and management of symptoms including: dyspnea ; pain b. To assist medical decision maker(s) with: better understanding of current medical conditions; weighing benefits/burdens of medical treatment options; making medical treatment decisions. . Subjective/Interval History Patient remains minimally responsive in the MICU. No improvement in encephalopathy. Tmax 99.2. WBC 12.3. On oxygen via t-piece. Plan to move to medical floor per nursing staff. Tolerating tube feedings. BM x 7 overnight. Labs are relatively stable. Nursing pain level scores are "0." Continues on 50 mcg/hr fentanyl patch. No recent prn opiates or benzos given. From Dr. Pickard's initial palliative care consultation of 07/15/15... This is the 5th [facility] care [facility] admission in the last 10 months for this unfortunate 54 y/o male [facility] resident with advanced Parkinson's disease ; dementia; tracheostomy and PEG tube who was sent to the ED from his facility on 06/18/15 because of fevers, labored breathing, worsening mental status; and purulent looking sputum at the trach site. The patient has had multiple hospitalizations which included stays in the intensive care unit for various infections. He had a urinary tract infection with multidrug resistant ESBL on 02/19/15. He was last MRSA positive on . alf notes from the facility indicate that his current baseline is: * Bedbound status * Unable to communicate * NPO -- on tube feedings at 85 cc /hr * Dependent for all ADLs In the emergency Department, initial vital signs were as follows > temperature 100.9; pulse 98; respiratory rate 38; blood pressure 104/61; pulse oximetry 99% on room air via trach collar. Initial physical examination the emergency department revealed the following > patient was frail and chronically ill-appearing. Skin showed no obvious wounds. Head, eyes, ENT, neck, cardiovascular, respiratory, gastrointestinal exams were unremarkable. Neurologically, the patient was unable to answer questions or respond or follow commands. Initial diagnostic testing revealed the following: * CBC showed WBC 16.4; hemoglobin 11.3; platelet count 176 * Coagulation profile showed PT 11.4; INR 1.1; PTT 29.4 * Chemistry profile showed sodium 141; potassium 4.5; chloride 105; CO2 27.4; anion gap 9; BUN 21; creatinine 0.85; estimated GFR 95; glucose 116; calcium 9.6 * Liver function tests showed total bilirubin 0.6; AST 23; ALT 38; alkaline phosphatase 59; total protein 7.5; albumen 3.2 * Urinalysis was remarkable for large occult blood; large leukocyte esterase; few bacteria; few yeast with hyphae; few budding yeast. * Arterial blood gases on trach mask at 40% showed pH 7.53; PCO2 33; PaO2 108; bicarbonate 27; base excess 4.2 * Chest x-ray showed no acute cardiopulmonary disease * Head CT showed diffuse atrophy unchanged from prior exam. * CT of the abdomen and pelvis showed chronic nonspecific urinary bladder wall thickening; bladder collapsed with Valdez catheter in place; chronic bilateral mid to lower lung zone groundglass opacity; nonobstructing left renal calculus; distended rectum. * The emergency room doctor diagnosed severe sepsis. The patient was given 2 L of IV fluid and broad-spectrum antibiotic-coated verge in the emergency department. Cultures were obtained. Valdez catheter was changed. As the patient was markedly tachypneic with increased work of breathing and use of accessory muscles during his stay in the emergency department. He was placed on CPAP and subsequently intubated and placed on mechanical ventilation. Critical care was consulted and the patient was admitted to the intensive care unit. Further examination revealed a stage II 6 x 2 cm sacral wound. Urine culture on admission grew out Heena of 2 different species. Sputum culture grew out Klebsiella pneumonia ESBL positive as well as pseudomonas. Blood culture grew out coag-negative staph and staph epidermidis. Both infectious disease and pulmonology were consulted. The patient slowly improved, was extubated, and critical care signed off on . However, on 07/06 the patient had to be placed back on the ventilator. A right sided pneumothorax was noted and patient underwent chest tube placement by interventional radiology. Pneumothorax has appeared to resolve on most recent chest x-ray. Sputum, blood, and urine cultures from 07/07/15 are all negative. White blood count is currently down to 7. Hemoglobin is 10.6. Albumen is suboptimal at 3.0. Renal function is normal. He is currently off anti-biotics. Current pain regimen includes the following: * Fentanyl patch; 50 g per hour * Morphine sulfate 5 mg sublingually or via the tube every 4 hours when necessary (he has been using 1-2 doses of this per day) The patient was tolerating CPAP earlier today and has since been removed from the ventilator and is on a T-piece at 40% FI02. At time of my visit, eyes are open. He intermittently tracks. He cannot follow commands and makes no attempt to interact. . Family/friend interactions Called daughterRadha she answered phone and immediately asked if she could call me back at 4pm. I agreed. I called motherTeresa via telephone to provide medical update. I explained John remains unresponsive on oxygen via trach and fed via PEG tube. Reviewed he has been here for 76 days this admission with no evidence of neurologic improvement. I explained he is dependent for 100% of his care. She sounds shocked. When asked if she thought he would want to live like this she says no. I asked about Code Status she does not think he would want chest compressions, shock. She verbalizes she is not "allowed to make his decisions." She would like to speak with daughter Radha. I encouraged the family to talk and reevaluate what John would want. She was thankful for the call. She asked me to have Radha call her, if Radha calls back this afternoon. . Advance Directives Living Will: Never completed Health Care Surrogate: Copy in medical record Durable Power of [employer]: Never completed Advance Directive Specifics Date completed: Patient visited Scott Mack, Al[employer] in March and again in November 2014. The patient was encouraged to complete Advance directive documents but never did them. Dr. Pickard personally called Mr. Mack ([phone]) to check for advance directives. Health Care Surrogate(s): The patient completed a health care surrogate document dated 09/02/14 desigating his friend Bola Nolasco as surrogate. Mr. Nolasco was not aware of this and has declined serving in that capacity. The patient has an adult daughter -- Radha Foreman who is willing to serve as health care proxy decision maker. Patient's mother, Teresa is aware. Significant change in goals: FULL CODE. Desires continued aggressive care. Encouraged family to reevaluate what patient would want. . Objective Vital Signs Date Time Temp Pulse Resp B/P Pulse Ox O2 Delivery O2 Flow Rate FiO2 09/02/15 14:00 80 09/02/15 12:00 98.7 78 20 96/68 99 09/02/15 12:00 78 09/02/15 11:00 97 Trach Collar 6.00 40 T-Piece 09/02/15 10:00 79 09/02/15 08:17 98 T-piece 40 09/02/15 08:00 97.7 87 24 102/60 97 09/02/15 08:00 93 09/02/15 07:00 99 Bi-Pap 6.00 35 T-Piece 09/02/15 06:00 87 09/02/15 04:00 84 09/02/15 04:00 98.6 84 21 99/62 98 09/02/15 03:52 98 35 09/02/15 03:00 95 Bi-Pap 35 T-Piece 09/02/15 02:00 91 09/02/15 01:17 96 35 09/02/15 00:00 89 09/02/15 00:00 99.2 89 26 111/68 98 09/01/15 23:00 96 Bi-Pap 35 T-Piece 09/01/15 22:00 83 09/01/15 20:38 98 T-piece 6.00 35 09/01/15 20:00 79 09/01/15 20:00 98.0 79 27 127/82 95 09/01/15 19:00 95 T-Piece 6.00 35 09/01/15 18:00 72 09/01/15 16:00 79 09/01/15 16:00 96.7 79 23 119/76 93 09/01/15 15:00 T-Piece 6.00 40 Intake & Output 09/02/15 09/02/15 06:59 18:59 Intake Total 1910 ml 932 ml Output Total 1350 ml 750 ml Balance 560 ml 182 ml IV Total 524 ml Tube Feeding 936 ml 572 ml Other 450 ml 360 ml Output Urine Total 1350 ml 750 ml # Bowel Movements 4 3 Physical Exam CONSTITUTIONAL/GENERAL: This is a thin, pale, contracted, chronically ill appearing male on trach t-tube in the MICU. No apparent distress. Eyes open but unresponsive. TUBES/LINES/DRAINS: Trach; condom cath, PEG tube; scd's SKIN: No jaundice, rashes, or lesions. Sacral wound approximately 3cm diameter, yellow tissue noted. No drainage noted. Skin temperature appropriate. Not diaphoretic. NECK: Tracheostomy. CARDIOVASCULAR: Regular rate and rhythm without murmurs, gallops, or rubs. No JVD. Peripheral pulses symmetric. RESPIRATORY/CHEST: Scattered crackles. Breath sounds equal bilaterally and diminished at bases. GASTROINTESTINAL: Abdomen soft, non-tender, nondistended. No guarding. Bowel sounds present. GENITOURINARY: Without palpable bladder distension. Valdez catheter in place. MUSCULOSKELETAL: Extremities without clubbing, cyanosis, or edema. Contractures. No mottling . NEUROLOGICAL: Eyes open but does not track. Unable to follow even simple commands. No spontaneous movements seen. PSYCHIATRIC: Unable to assess due to level of responsiveness. . Diagnostic Tests Laboratory Laboratory Tests Test 08/31/15 09/02/15 03:24 03:39 White Blood Count 11.1 TH/MM3 12.3 TH/MM3 (4.0-11.0) (4.0-11.0) Red Blood Count 3.72 MIL/MM3 3.64 MIL/MM3 (4.50-5.90) (4.50-5.90) Hemoglobin 9.8 GM/DL 9.9 GM/DL (13.0-17.0) (13.0-17.0) Hematocrit 32.2 % 31.4 % (39.0-51.0) (39.0-51.0) Mean Corpuscular Volume 86.7 FL 86.3 FL (80.0-100.0) (80.0-100.0) Mean Corpuscular Hemoglobin 26.4 PG 27.1 PG (27.0-34.0) (27.0-34.0) Mean Corpuscular Hemoglobin 30.4 % 31.4 % Concent (32.0-36.0) (32.0-36.0) Red Cell Distribution Width 14.3 % 15.1 % (11.6-17.2) (11.6-17.2) Platelet Count 259 TH/MM3 243 TH/MM3 (150-450) (150-450) Mean Platelet Volume 10.0 FL 10.5 FL (7.0-11.0) (7.0-11.0) Neutrophils (%) (Auto) 70.2 % (16.0-70.0) Lymphocytes (%) (Auto) 15.8 % (9.0-44.0) Monocytes (%) (Auto) 5.7 % (0.0-8.0) Eosinophils (%) (Auto) 7.7 % (0.0-4.0) Basophils (%) (Auto) 0.6 % (0.0-2.0) Neutrophils # (Auto) 7.8 TH/MM3 (1.8-7.7) Lymphocytes # (Auto) 1.7 TH/MM3 (1.0-4.8) Monocytes # (Auto) 0.6 TH/MM3 (0-0.9) Eosinophils # (Auto) 0.9 TH/MM3 (0-0.4) Basophils # (Auto) 0.1 TH/MM3 (0-0.2) CBC Comment DIFF FINAL Differential Comment Sodium Level 147 MEQ/L 144 MEQ/L (136-145) (136-145) Potassium Level 4.0 MEQ/L 4.5 MEQ/L (3.5-5.1) (3.5-5.1) Chloride Level 102 MEQ/L 100 MEQ/L (98-107) (98-107) Carbon Dioxide Level 44.6 MEQ/L 39.7 MEQ/L (21.0-32.0) (21.0-32.0) Anion Gap 0 MEQ/L (5-15) 4 MEQ/L (5-15) Blood Urea Nitrogen 23 MG/DL (7-18) 23 MG/DL (7-18) Creatinine 0.48 MG/DL 0.48 MG/DL (0.60-1.30) (0.60-1.30) Estimat Glomerular Filtration 183 ML/MIN 183 ML/MIN Rate (>89) (>89) Random Glucose 139 MG/DL 133 MG/DL (74-106) (74-106) Calcium Level 9.7 MG/DL 9.7 MG/DL (8.5-10.1) (8.5-10.1) Phosphorus Level 3.9 MG/DL (2.5-4.9) Magnesium Level 2.2 MG/DL (1.5-2.5) Result Diagram: 09/02/15 0339 09/02/15 0339 Imaging Last Impressions Chest X-Ray 08/31/15 0000 Signed Impressions: Service Date/Time: Monday, August 31, 2015 02:05 - CONCLUSION: No acute cardiopulmonary disease identified. Kush Briscoe MD Tunnelled Chest Tube Removal 08/05/15 1100 Signed Impressions: Service Date/Time: Wednesday, August 05, 2015 11:00 - CONCLUSION: Uncomplicated chest tube removal. Blaine Jackson MD Chest Tube Change 07/31/15 0000 Signed Impressions: Service Date/Time: Friday, July 31, 2015 14:34 - CONCLUSION: Uncomplicated reposition of previously placed chest tube as above. Blaine Jackson MD Chest Tube Insertion 07/30/15 0000 Signed Impressions: Service Date/Time: July 14:50 - CONCLUSION: Uncomplicated chest tube placement as above. Blaine Jackson MD Catheter Change 07/27/15 0000 Signed Impressions: Service Date/Time: Monday, July 27, 2015 14:43 - CONCLUSION: Uncomplicated gastrostomy tube exchange as above. Blaine Jackson MD Chest CT 07/11/15 0000 Signed Impressions: Service Date/Time: Saturday, July 11, 2015 09:49 - CONCLUSION: Scattered patchy densities significantly improved from previous study. Tiny anterior right basilar pneumothorax. Right-sided chest tube in good position. Néstor Matamoros MD Head CT 06/18/151902 Signed Impressions: Service Date/Time: June 19:31 - CONCLUSION: Diffuse atrophy unchanged. No acute intracranial findings. Kush Briscoe MD Abdomen/Pelvis CT 06/18/151902 Signed Impressions: Service Date/Time: June 19:36 - CONCLUSION: 1. Chronic nonspecific urinary bladder wall thickening. Bladder collapsed with Valdez catheter in place. 2. Chronic bilateral mid to lower lung zone groundglass opacity. 3. Nonobstructing left renal calculus. 4. Distended rectum. Kush Briscoe MD Procedures * Mechanical ventilation * Chest tube placement on right 07/07/15 * Chest tube removal 07/17/15 . Assessment and Plan Disease Oriented Problem List: (1) Acute respiratory failure Comment: Secondary to pneumonia. Able to get on CPAP for a while, but unable eliminate vent dependence long enough to get out of ICU. . (2) Pneumonia Comment: Cultures have been positive for Pseudomonas AND Klebsiella ESBL ANd Stenotrophomonas during hospitalization . (3) Pneumothorax on right Comment: Resolved . (4) Septic shock Comment: Blood cx have been postiive for Staph coag neg and Staph epidermidis . (5) Parkinson disease (6) Moderate malnutrition (7) UTI (urinary tract infection) Comment: Cultures have been positive for Heena (tropicalis and glabrata) (8) Chronic respiratory failure Symptom Scale: (1) Pain 0-10 Scale: Unable to quantify Comment: Sources of pain might include wound, prolonged bedbound status, contractures, restraints, valdez, vascular access catheters. Appears comfortable on current regimen. ,l (2) Dyspnea 0-10 Scale: Unable to quantify Comment: Frequently tachypnic. Now tolerating t-tube. . Pertinent Non-Medical Issues Psychosocial: [facility]. 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 Severe dementia. Daughter, mother, and brother are involved. Spiritual: Yazidism. Has been a member for the [facility] [employer] and members have provided both community support and spiritual support in the past. Legal: No advance directives. Daughter (Radha Foreman) is legal proxy and lives 4 hours away. can be quite difficult to contact by phone. Ethical issues impacting care: None. . Important Contacts * Radha Foreman (daughter and proxy) [phone] * Teresa Perea (mother -- lives in [place]) [phone] . Prognosis Patient has end stage Parkinson's with end stage dementia. He is a [facility] [place] [facility] and has required multiple hospitalizations for sepsis. He is a chronic trach/PEG tube patient with contractures and skin breakdown. Should family continue to want aggressive care, he will continue to go back and forth from facility to hospital until such time that we are no longer able to overcome the sepsis. Patient is hospice eligible whenever family is ready to transition to "comfort measures only." . Code Status: Full Code Plan * Decision making: Patient is incapacitated and will not regain capacity. There is no designated health care surrogate. Daughter, Radha Foreman, is legal proxy under [place] statutes but can be hard to contact at times. * FULL CODE * 09/02/15 - Called to speak with daughterRadha via telephone to provide medical update, gardenia answered the phone and immediately asked if she could call me back at 4pm, so I agreed. * 09/02/15 - I called to provide motherTeresa and update. I called Teresa moreno via telephone to provide medical update. I explained John remains unresponsive on oxygen via trach and fed via PEG tube. Reviewed he has been here for 76 days this admission with no evidence of neurologic improvement. I explained he is dependent for 100% of his care. She sounds shocked. When asked if she thought he would want to live like this she says no. I asked about Code Status she does not think he would want chest compressions, shock. She verbalizes she is not "allowed to make his decisions." She would like to speak with daughter Radha. I encouraged the family to talk and reevaluate what John would want. She was thankful for the call. She asked me to have Radha call her , if Radha calls back this afternoon. * Pain: Sources of pain are unclear as patient in non communicative, but would include prolonged bedbound status; tubes and lines; contractures; wound; etc. Current regimen appears to adequate . No further recommendations at this time. * Dyspnea: Dyspnea was due to pneumonia and pneumothorax. Was very challenging to get off vent. Now tolerating T-tube, but historically, he is likely to decompensate again in a short period of time. * Malnutrition: Tolerating tube feeds, but albumin remains low. * Agitation/Behavioral issues: Adequately controlled with current neuroleptic and benzo regimen. No further recommendations at this time. * Palliative care will try and meet with Radha (proxy) in person when she next comes to visit. She continues to insist on aggressive goals in spite of the incredibly bleak prognosis. . . . Attestation To help prompt me to consider important information that might be impacting today's encounter and assessment, information from prior notes written by myself or my colleagues may have been "brought forward" into today's note. My signature on this note, however, is an attestation that I personally performed the exam, history, and/or decision-making noted today, and, unless otherwise indicated, the interactions with patient, family, and staff as well as the review of records all occurred today. I also attest that the listed assessment and stated plan reflect my best clinical judgment today based on the combination of historical information, prior notes, and today's exam/ interactions. When time spent is documented, it refers only to time spent today by the signer, or if indicated, combined time spent today by collaborating physician/nurse practitioner. ALOK JONES Sep 02, 2015 14:52
--- NOTE | 2015-09-02 17:20 | HHI.PR ---
Subjective Remarks On a T Bar Fio2 35 % % , and stable.. CXR was clear. On CPAP at HS. No change overall. Remains Lethargic. On tube feeds. . Objective Vital Signs Date Time Temp Pulse Resp B/P Pulse Ox O2 Delivery O2 Flow Rate FiO2 09/02/15 16:00 89 09/02/15 16:00 97.7 89 22 115/77 90 09/02/15 15:00 98 Trach Collar 6.00 40 T-Piece 09/02/15 14:00 80 09/02/15 12:00 98.7 78 20 96/68 99 09/02/15 12:00 78 09/02/15 11:00 97 Trach Collar 6.00 40 T-Piece 09/02/15 10:00 79 09/02/15 08:17 98 T-piece 40 09/02/15 08:00 97.7 87 24 102/60 97 09/02/15 08:00 93 09/02/15 07:00 99 Bi-Pap 6.00 35 T-Piece 09/02/15 06:00 87 09/02/15 04:00 84 09/02/15 04:00 98.6 84 21 99/62 98 09/02/15 03:52 98 35 09/02/15 03:00 95 Bi-Pap 35 T-Piece 09/02/15 02:00 91 09/02/15 01:17 96 35 09/02/15 00:00 89 09/02/15 00:00 99.2 89 26 111/68 98 09/01/15 23:00 96 Bi-Pap 35 T-Piece 09/01/15 22:00 83 09/01/15 20:38 98 T-piece 6.00 35 09/01/15 20:00 79 09/01/15 20:00 98.0 79 27 127/82 95 09/01/15 19:00 95 T-Piece 6.00 35 09/01/15 18:00 72 I/O 09/01/15 09/01/15 09/01/15 09/02/15 09/02/15 09/02/15 06:59 14:59 22:59 06:59 14:59 22:59 Intake Total 709 ml 1127 ml 1196 ml 714 ml 932 ml Output Total 200 ml 450 ml 500 ml 850 ml 750 ml Balance 509 ml 677 ml 696 ml -136 ml 182 ml IV Total 487 ml 524 ml Tube Feeding 459 ml 320 ml 422 ml 514 ml 572 ml Other 250 ml 320 ml 250 ml 200 ml 360 ml Output Urine Total 200 ml 450 ml 500 ml 850 ml 750 ml # Bowel Movements 1 3 2 2 3 Result Diagram: 09/02/1533809/02/15338 Objective Remarks This is a thin white male who is Awake but no response to commands,with a trach tube in place. HEENT: Pupils are equal and reactive to light.Throat clear. Trach in neck. mild secretions. CHEST: Occ wheeze heard. Decreased breath sounds . CARDIOVASCULAR: S1 and S2 is normal. ABDOMEN: Soft, nondistended. He has a PEG tube in place. EXTREMITIES: No edema.muscle wasting. ulcer over sacrum NEURO: Lethargic and Does not move his extremities .Reflexes not elicited. Assessment and Plan Assessment and Plan IMPRESSION 1. Respiratory failure, ventilator dependent. 2. Sepsis, resolving. 3. UTI 4. Tracheobronchitis 5. Parkinson's disease 6. Dementia. 7. Severe Deconditioning. 8. Left Pneumothorax. Resolved. Plan : 1. Bipap 5/15, FIO2 30 % at HS 10 PM to 7 am. 2. Nebs qid , duoneb. 3. Cont Tube feeds at 60 CC 4. Cont T Bar 35 % for 15 hrs if tolerating. 5. Transfer to [facility] on Bipap at HS 6. Trach toilet and lavage. 8. Lovenox 40 Mg S/Q daily. 9. Arrange Bipap at Home. Darren Kiser MD Sep 02, 2015 17:19
[2015-09-02] MEDS: OLANZapine 5 MG TAB GT SCH (20:49)
[2015-09-02] MEDS: ENOXAPARIN SODIUM 40 MG/0.4 ML SYRINGE SQ SCH (22:03)
[2015-09-03] VITALS (12 sets, daily range): BP systolic 95–116; BP diastolic 62–75; PULSE 82–90; RESP 16–33; TEMP 96.9–100; O2SAT 94–100
[2015-09-03] MEDS: RESP: ALBUTEROL 2.5 MG/IPRATROPIUM 0.5 MG NEB (SCH) NEB ×4 (03:32→22:35)
[2015-09-03] MEDS: CHLORHEXIDINE GLUCONATE 2 % 1 PACK (2 CLOTHS) TOP SCH (04:00)
[2015-09-03] MEDS: clonazePAM 1 MG TAB PO SCH ×3 (05:10→22:48)
[2015-09-03] MEDS: CARBIDOPA/LEVODOPA 25 MG/100 MG TAB GT SCH ×3 (05:10→22:48)
[2015-09-03] MEDS: FREE WATER G-TUBE SCH ×3 (05:10→22:00)
[2015-09-03] MEDS: REMOVE OLD PATCH TD SCH (08:00)
[2015-09-03] MEDS: COLLAGENASE OINT 30 GM TUBE TOP SCH (09:00)
[2015-09-03] MEDS: LACTOBACILLUS ACIDOPHILUS TAB PO SCH ×3 (09:25→18:00)
[2015-09-03] MEDS: LANSOPRAZOLE SOLUTAB 30 MG TAB NG SCH (09:26)
[2015-09-03] MEDS: QUEtiapine FUMARATE 25 MG TAB G-TUBE SCH ×2 (09:26→22:39)
[2015-09-03] MEDS: fentaNYL 50 MCG/HR PATCH TD SCH (09:26)
[2015-09-03] MEDS: ARTIFICIAL TEARS OPTH SOLN 15 ML BTL EACH EYE SCH ×3 (09:26→18:00)
[2015-09-03] MEDS: PARoxetine HCL 20 MG TAB G-TUBE SCH (09:26)
[2015-09-03] MEDS: MIDODRINE 5 MG TAB G-TUBE SCH ×2 (09:26→22:39)
[2015-09-03] MEDS: GABAPENTIN 300 MG CAP G-TUBE SCH ×2 (09:26→22:38)
[2015-09-03] MEDS: SODIUM CHLORIDE 0.9% FLUSH 5 ML FLUSH IVF SCH ×2 (09:28→22:40)
[2015-09-03] MEDS: CHLORHEXIDINE 0.12% (ORAL KIT) 15 ML CUP MT SCH ×2 (09:33→20:00)
--- NOTE | 2015-09-03 12:54 | HHI.PR ---
Subjective Remarks On a T Bar Fio2 35 % % , and stable..Will need to transfer to [facility]. On CPAP at HS. Remains Lethargic. On tube feeds. . Objective Vital Signs Date Time Temp Pulse Resp B/P Pulse Ox O2 Delivery O2 Flow Rate FiO2 09/03/15 11:00 96 Trach Collar 5.00 35 T-Piece 09/03/15 08:45 97 T-piece 5.00 35 09/03/15 08:00 98.3 90 25 105/69 96 09/03/15 08:00 90 09/03/15 07:00 97 Trach Collar T-Piece 09/03/15 06:25 98 T-piece 35 09/03/15 04:20 96 35 09/03/15 04:00 100.0 89 33 101/67 98 09/03/15 04:00 89 09/03/15 03:00 98 Bi-Pap Trach Collar 09/03/15 01:13 97 35 09/03/15 00:00 98.4 83 27 95/62 97 09/03/15 00:00 83 09/02/15 23:00 97 Bi-Pap Trach Collar 09/02/15 21:41 97 35 09/02/15 20:00 86 09/02/15 20:00 98.2 86 24 105/69 99 09/02/15 19:49 97 T-piece 35 09/02/15 19:00 99 Trach Collar 6.00 40 T-Piece 09/02/15 16:00 89 09/02/15 16:00 97.7 89 22 115/77 90 09/02/15 15:00 98 Trach Collar 6.00 40 T-Piece 09/02/15 14:00 80 I/O 09/02/15 09/02/15 09/02/15 09/03/15 09/03/15 09/03/15 07:00 15:00 23:00 07:00 15:00 23:00 Intake Total 714 ml 932 ml 761 ml 427 ml Output Total 850 ml 750 ml 160.0 ml 500 ml Balance -136 ml 182 ml 601.0 ml -73 ml IV Total 5 ml Tube Feeding 514 ml 572 ml 556 ml 427 ml Other 200 ml 360 ml 200 ml Output Urine Total 850 ml 750 ml 100 ml 500 ml Tube Feeding Residual Discard 60.0 ml # Bowel Movements 2 3 1 1 Result Diagram: 09/02/15 0339 09/02/15 0339 Objective Remarks This is a thin white male who is Awake but no response to commands,with a trach tube in place. HEENT: Pupils are equal and reactive to light.Throat clear. Trach in neck. mild secretions. CHEST: Occ wheeze heard. Decreased breath sounds . CARDIOVASCULAR: S1 and S2 is normal. ABDOMEN: Soft, nondistended. He has a PEG tube in place. EXTREMITIES: No edema.muscle wasting. ulcer over sacrum. NEURO: Lethargic and Does not move his extremities .Reflexes not elicited. Assessment and Plan Assessment and Plan IMPRESSION 1. Respiratory failure, resolving 2. Sepsis, resolving. 3. UTI 4. Tracheobronchitis 5. Parkinson's disease 6. Dementia. 7. Severe Deconditioning. 8. Left Pneumothorax. Resolved. Plan : 1. Bipap 15, FIO2 30 % at HS 10 PM to 6 am. 2. Nebs qid , duoneb. 3. Cont Tube feeds at 60 CC 4. Cont T Bar daytime at FIo2 35 % for 16 hrs if tolerating. 5. Transfer to [facility] on Bipap at HS 6. Trach toilet and lavage. 8. Lovenox 40 Mg S/Q daily. 9. Transfer to home. Darren Kiser MD Sep 03, 2015 12:54
--- NOTE | 2015-09-03 14:17 | HHI.PR ---
Subjective Remarks Mr. Foreman remains aphasic, does not follow commands. Afebrile with T max 100.0F. Objective Vitals Vital Signs Date Time Temp Pulse Resp B/P Pulse Ox O2 Delivery O2 Flow Rate FiO2 09/03/15 12:00 99.6 82 16 100/65 96 09/03/15 11:00 96 Trach Collar 5.00 35 T-Piece 09/03/15 08:45 97 T-piece 5.00 35 09/03/15 08:00 98.3 90 25 105/69 96 09/03/15 08:00 90 09/03/15 07:00 97 Trach Collar T-Piece 09/03/15 06:25 98 T-piece 35 09/03/15 04:20 96 35 09/03/15 04:00 100.0 89 33 101/67 98 09/03/15 04:00 89 09/03/15 03:00 98 Bi-Pap Trach Collar 09/03/15 01:13 97 35 09/03/15 00:00 98.4 83 27 95/62 97 09/03/15 00:00 83 09/02/15 23:00 97 Bi-Pap Trach Collar 09/02/15 21:41 97 35 09/02/15 20:00 86 09/02/15 20:00 98.2 86 24 105/69 99 09/02/15 19:49 97 T-piece 35 09/02/15 19:00 99 Trach Collar 6.00 40 T-Piece 09/02/15 16:00 89 09/02/15 16:00 97.7 89 22 115/77 90 09/02/15 15:00 98 Trach Collar 6.00 40 T-Piece I/O 09/02/15 09/02/15 09/02/15 09/03/15 09/03/15 09/03/15 07:00 15:00 23:00 07:00 15:00 23:00 Intake Total 714 ml 932 ml 761 ml 427 ml Output Total 850 ml 750 ml 160.0 ml 500 ml Balance -136 ml 182 ml 601.0 ml -73 ml IV Total 5 ml Tube Feeding 514 ml 572 ml 556 ml 427 ml Other 200 ml 360 ml 200 ml Output Urine Total 850 ml 750 ml 100 ml 500 ml Tube Feeding Residual Discard 60.0 ml # Bowel Movements 2 3 1 1 Result Diagram: 7/27/16 0339 09/02/15 0339 Imaging Last Impressions Chest X-Ray 08/31/15 0000 Signed Impressions: Service Date/Time: Monday, August 31, 2015 02:05 - CONCLUSION: No acute cardiopulmonary disease identified. Kush Briscoe MD Tunnelled Chest Tube Removal 08/05/15 1100 Signed Impressions: Service Date/Time: Wednesday, August 05, 2015 11:00 - CONCLUSION: Uncomplicated chest tube removal. Blaine Jackson MD Chest Tube Change 07/31/15 0000 Signed Impressions: Service Date/Time: Friday, July 31, 2015 14:34 - CONCLUSION: Uncomplicated reposition of previously placed chest tube as above. Blaine Jackson MD Chest Tube Insertion 07/30/15 0000 Signed Impressions: Service Date/Time: July 14:50 - CONCLUSION: Uncomplicated chest tube placement as above. Blaine Jackson MD Catheter Change 07/27/15 0000 Signed Impressions: Service Date/Time: Monday, July 27, 2015 14:43 - CONCLUSION: Uncomplicated gastrostomy tube exchange as above. Blaine Jackson MD Chest CT 07/11/15 0000 Signed Impressions: Service Date/Time: Saturday, July 11, 2015 09:49 - CONCLUSION: Scattered patchy densities significantly improved from previous study. Tiny anterior right basilar pneumothorax. Right-sided chest tube in good position. Néstor Matamoros MD Head CT 06/18/151902 Signed Impressions: Service Date/Time: June 19:31 - CONCLUSION: Diffuse atrophy unchanged. No acute intracranial findings. Kush Briscoe MD Abdomen/Pelvis CT 06/18/151902 Signed Impressions: Service Date/Time: June 19:36 - CONCLUSION: 1. Chronic nonspecific urinary bladder wall thickening. Bladder collapsed with Putnam catheter in place. 2. Chronic bilateral mid to lower lung zone groundglass opacity. 3. Nonobstructing left renal calculus. 4. Distended rectum. Kush Briscoe MD Objective Remarks GENERAL: Well-nourished, well-developed patient. SKIN: Warm and dry. HEAD: Normocephalic. EYES: No scleral icterus. No injection or drainage. NECK: 8.0 Distal XLT trach in place CARDIOVASCULAR: Regular rate and rhythm without murmurs, gallops, or rubs. RESPIRATORY: Moderate air entry. Fine crackles present. GASTROINTESTINAL: Abdomen soft, non-tender, nondistended. MUSCULOSKELETAL: 1+ dependent pedal edema. Contractures and deformities of fingers. Stage III coccyx/sacral decubitus ulcer Procedures 07/26- PEG replacement 07/29- right pigtail catheter placement for new pneumothorax 07/29 Date of Insertion: Jul 30, 2015 A/P Assessment and Plan Neuro/Psych: Parkinson's disease Cognitive disorder not otherwise specified Chronic encephalopathy Dementia Depression CT head 06/18/15: - diffuse atrophy unchanged. No acute intracranial findings Continue Sinemet 25/100 q8 via PEG, Seroquel 50 mg twice a day, olanzapine 5 mg a night, Klonopin 2 mg every 8 hours, Paxil 20 daily and Neurontin 300 mg twice a day. These are alf home medications, dose of antipsychotics have been titrated up slightly since admit. Continue Lortab when necessary pain and fentanyl patch 50 g every 3 days for pain management. Fentanyl bolus prn breakthrough pain or if needed for turning/ nursing care/etc. Resp: Acute on chronic respiratory failure Chronic trach #8 Shiley distal XLT Pneumonia - resolved Right pneumothorax status post pigtail catheter 2 (resolved) On Tpiece at 35% 15 hours during day and PSV using Bipap 15/5 at 35% at night from 10 PM to 7 AM per pulmonology. Pulmonary Dr. Restrepo following. Pulm toilet, trach care. Exchanged to 8 Distal XLT on 08/15 to facilitate suctioning, trach care. Bronchodilators ( DuoNeb) every 6 hours rewritten Status post chest tube on 07/06. Removed 07/16. Replacement again by interventional radiology on 07/30, chest tube removed 08/04, repeat films do not indicate any pneumothorax CXR from 08/30 shows no focal pneumonia or pneumothorax Cardiac History of orthostasis History of CAD History dyslipidemia History of hypertension Continue Midodrine 5 mg twice a day. On 2.5 twice a day at home Monitor HR and BP keep MAP>65mmHg GI: Chronic moderate protein energy malnutrition Dysphagia Status post PEG Internal hemorrhoids Gastroesophageal reflux disease - Tolerating Jevity 1.5 at 60 cc an hour per nutrition recommendations - Currently Prevacid 30 mg per PEG tube daily for GERD - Currently not on bowel regimen secondary to diarrhea FEN/Renal: Nonobstructing left renal calculus Hypernatremia - Monitor renal function, I/O's. electrolytes replacement per protocol. - Condom catheter in place. - Free water 200 every 8. ID: Candiduria (cele tropicalis urine cx 08/17) ESBL positive Klebsiella/Pseudomonas pneumonia Stenotrophomonas in sputum 08/17 MRSA colonization sepsis UTI Klebsiella ESBL positive (has been treated) Watching off abx per ID: Diflucan 08/17-08/26 . Levaquin 08/20--08/26 for Stenotrophomonas. ID signed off, reconsult if needed. Completed course of meropenem for 08/11-08/20 for Klebsiella ESBL/pseudomonas pneumonia. On Lactinex tid Pertinent cultures Urine cx 08/17 - cele tropicalis Blood culture 08/17 negative sputum culture 08/17 - pseudomonas and Stenotrophomonas maltophilia. Urine culture: 08/02 Klebsiella pneumonia ESBL positive Urine culture: 08/02 Cele Tropicalis, C. Glabrata Sputum culture: 08/02 Pseudomonas, Klebsiella pneumonia ESBL positive Blood culture: 08/02 yeast species, Cele glabrata, Cele tropicalis - History of Multidrug resistant UTI- ESBL 02/19/15 , MRSA + 03/20/15 - Cele glabrata in urine 03/19/15 - Rechecked blood, sputum and urine cultures 07/06 no growth - 06/17 - blood cultures 2 - CONS/staph epi - 06/17 - sputum - ESBL positive Klebsiella/Pseudomonas Treated 15 days with tobramycin aerosols twice a day. - 06/17 - urine - C. glabrata/tropicalis - treated with Diflucan Endo: Sliding-scale insulin if needed for glycemic control Heme Normocytic Anemia Leukocytosis - Monitor CBC intermittently MSK Bilateral lower extremity Contractures Stage III sacral decubitus present on admission - Wound care evaluate and treat. Currently on Santyl daily with wet-to-dry changes. - Currently has recommended bed - Continue physical therapy Prophylaxis - GI - Prevacid - DVT - SCDs/ Lovenox. Full code. Overall prognosis is poor. Appreciate Palliative care's efforts. Becca Gallegos DO Sep 03, 2015 14:17
--- NOTE | 2015-09-03 15:04 | HHI.HCPN ---
Spoke with daughter, Radha via telephone to provide medical update, readdress goals of care. She indicates that she will consider our conversation. She does not give any insight to her thoughts regarding goals of care. I also spoke with the patient's motherTeresa via telephone to provide medical update. She believes that the patient would not want to live like a vegetable and that it is time to keep him comfortable. Mother plans to speak with her other son and patient's daughter Radha to discuss goals of care. Mother believes that hospice would be appropriate at this time, but understands that she is not the legal decision maker. Provided palliative care number should she want to arrange a family conference call so that I can help facilitate conversation. Continue aggressive care at this time. FULL CODE. Palliative care will continue to facilitate conversation and clarify treatment goals. . ALOK JONES Sep 03, 2015 15:04
[2015-09-03] MEDS: OLANZapine 5 MG TAB GT SCH (22:39)
[2015-09-03] MEDS: ENOXAPARIN SODIUM 40 MG/0.4 ML SYRINGE SQ SCH (22:48)
[2015-09-04] VITALS (10 sets, daily range): BP systolic 100–126; BP diastolic 58–72; PULSE 88–103; RESP 16–25; TEMP 96.1–99.6; O2SAT 92–99
[2015-09-04] MEDS: CHLORHEXIDINE GLUCONATE 2 % 1 PACK (2 CLOTHS) TOP SCH (04:00)
[2015-09-04] MEDS: RESP: ALBUTEROL 2.5 MG/IPRATROPIUM 0.5 MG NEB (SCH) NEB ×3 (04:47→15:44)
[2015-09-04] MEDS: FREE WATER G-TUBE SCH ×3 (06:00→22:00)
[2015-09-04] MEDS: CARBIDOPA/LEVODOPA 25 MG/100 MG TAB GT SCH ×3 (06:21→22:00)
[2015-09-04] MEDS: clonazePAM 1 MG TAB PO SCH ×3 (06:22→22:00)
[2015-09-04] MEDS: CHLORHEXIDINE 0.12% (ORAL KIT) 15 ML CUP MT SCH ×2 (08:00→20:00)
[2015-09-04] MEDS: LANSOPRAZOLE SOLUTAB 30 MG TAB NG SCH (08:47)
[2015-09-04] MEDS: LACTOBACILLUS ACIDOPHILUS TAB PO SCH ×3 (08:47→19:18)
[2015-09-04] MEDS: GABAPENTIN 300 MG CAP G-TUBE SCH ×2 (08:47→21:00)
[2015-09-04] MEDS: MIDODRINE 5 MG TAB G-TUBE SCH ×2 (08:47→21:00)
[2015-09-04] MEDS: SODIUM CHLORIDE 0.9% FLUSH 5 ML FLUSH IVF SCH ×2 (08:48→21:00)
[2015-09-04] MEDS: PARoxetine HCL 20 MG TAB G-TUBE SCH (08:48)
[2015-09-04] MEDS: QUEtiapine FUMARATE 25 MG TAB G-TUBE SCH ×2 (08:48→21:00)
[2015-09-04] MEDS: COLLAGENASE OINT 30 GM TUBE TOP SCH (08:49)
[2015-09-04] MEDS: ARTIFICIAL TEARS OPTH SOLN 15 ML BTL EACH EYE SCH ×3 (08:51→19:18)
--- NOTE | 2015-09-04 12:19 | HHI.PR ---
Subjective Remarks Mr. Foreman remains aphasic, does not follow commands. No acute issues. Tolerating tube feed well. Objective Vitals Vital Signs Date Time Temp Pulse Resp B/P Pulse Ox O2 Delivery O2 Flow Rate FiO2 09/04/15 10:24 98 T-piece 6.00 28 09/04/15 09:00 Bi-Pap 6.00 30 Trach Collar Humidified 09/04/15 08:00 99.1 103 24 116/59 92 09/04/15 04:47 99 30 09/04/15 04:00 96.1 88 18 126/67 99 09/04/15 00:00 97.8 90 16 110/72 93 09/03/15 22:45 97 30 09/03/15 20:30 Nasal Cannula 6.00 09/03/15 20:00 96.9 86 18 116/75 94 09/03/15 16:00 98.6 85 16 105/67 100 09/03/15 15:00 83 09/03/15 15:00 94 Trach Collar 5.00 35 T-Piece I/O 09/03/15 09/03/15 09/03/15 09/04/15 09/04/15 09/04/15 06:59 14:59 22:59 06:59 14:59 22:59 Intake Total 427 ml 852 ml 0 ml 0 ml Output Total 500 ml 750 ml 225 ml 300 ml Balance -73 ml 102 ml -225 ml -300 ml Intake Oral 0 ml 0 ml Tube Feeding 427 ml 672 ml Other 180 ml Output Urine Total 500 ml 750 ml 225 ml 300 ml # Bowel Movements 1 2 0 1 Result Diagram: 09/02/15 0339 09/02/15 0339 Imaging Last Impressions Chest X-Ray 08/31/15 0000 Signed Impressions: Service Date/Time: Monday, August 31, 2015 02:05 - CONCLUSION: No acute cardiopulmonary disease identified. Kush Briscoe MD Tunnelled Chest Tube Removal 08/05/15 1100 Signed Impressions: Service Date/Time: Wednesday, August 05, 2015 11:00 - CONCLUSION: Uncomplicated chest tube removal. Blaine Jackson MD Chest Tube Change 07/31/15 0000 Signed Impressions: Service Date/Time: Friday, July 31, 2015 14:34 - CONCLUSION: Uncomplicated reposition of previously placed chest tube as above. Blaine Jackson MD Chest Tube Insertion 07/30/15 0000 Signed Impressions: Service Date/Time: July 14:50 - CONCLUSION: Uncomplicated chest tube placement as above. Blaine Jackson MD Catheter Change 07/27/15 0000 Signed Impressions: Service Date/Time: Monday, July 27, 2015 14:43 - CONCLUSION: Uncomplicated gastrostomy tube exchange as above. Blaine Jakcson MD Chest CT 07/11/15 0000 Signed Impressions: Service Date/Time: Saturday, July 11, 2015 09:49 - CONCLUSION: Scattered patchy densities significantly improved from previous study. Tiny anterior right basilar pneumothorax. Right-sided chest tube in good position. Néstor Matamoros MD Head CT 06/18/151902 Signed Impressions: Service Date/Time: June 19:31 - CONCLUSION: Diffuse atrophy unchanged. No acute intracranial findings. Kush Briscoe MD Abdomen/Pelvis CT 06/18/151902 Signed Impressions: Service Date/Time: June 19:36 - CONCLUSION: 1. Chronic nonspecific urinary bladder wall thickening. Bladder collapsed with Putnam catheter in place. 2. Chronic bilateral mid to lower lung zone groundglass opacity. 3. Nonobstructing left renal calculus. 4. Distended rectum. Kush Briscoe MD Objective Remarks GENERAL: Well-nourished, well-developed patient. SKIN: Warm and dry. HEAD: Normocephalic. EYES: No scleral icterus. No injection or drainage. NECK: 8.0 Distal XLT trach in place CARDIOVASCULAR: Regular rate and rhythm without murmurs, gallops, or rubs. RESPIRATORY: Moderate air entry. Fine crackles present. GASTROINTESTINAL: Abdomen soft, non-tender, nondistended. MUSCULOSKELETAL: 1+ dependent pedal edema. Contractures and deformities of fingers. Stage III coccyx/sacral decubitus ulcer Procedures 07/26- PEG replacement 07/29- right pigtail catheter placement for new pneumothorax 07/29 Date of Insertion: Jul 30, 2015 A/P Assessment and Plan Neuro/Psych: Parkinson's disease Cognitive disorder not otherwise specified Chronic encephalopathy Dementia Depression CT head 06/18/15: - diffuse atrophy unchanged. No acute intracranial findings Continue Sinemet 25/100 q8 via PEG, Seroquel 50 mg twice a day, olanzapine 5 mg a night, Klonopin 2 mg every 8 hours, Paxil 20 daily and Neurontin 300 mg twice a day. 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 Continue Lortab when necessary pain and fentanyl patch 50 g every 3 days for pain management. Fentanyl bolus prn breakthrough pain or if needed for turning/ nursing care/etc. Resp: Acute on chronic respiratory failure Chronic trach #8 Shiley distal XLT Pneumonia - resolved Right pneumothorax status post pigtail catheter 2 (resolved) On Tpiece at 35% 15 hours during day and PSV using Bipap 15/5 at 35% at night from 10 PM to 7 AM per pulmonology. Pulmonary Dr. Restrepo following. Pulm toilet, trach care. Exchanged to 8 Distal XLT on 08/15 to facilitate suctioning, trach care. Bronchodilators ( DuoNeb) every 6 hours rewritten Status post chest tube on 07/06. Removed 07/16. Replacement again by interventional radiology on 07/30, chest tube removed 08/04, repeat films do not indicate any pneumothorax CXR from 08/30 shows no focal pneumonia or pneumothorax Cardiac History of orthostasis History of CAD History dyslipidemia History of hypertension Continue Midodrine 5 mg twice a day. On 2.5 twice a day at home Monitor HR and BP keep MAP>65mmHg GI: Chronic moderate protein energy malnutrition Dysphagia Status post PEG Internal hemorrhoids Gastroesophageal reflux disease - Tolerating Jevity 1.5 at 60 cc an hour per nutrition recommendations - Currently Prevacid 30 mg per PEG tube daily for GERD - Currently not on bowel regimen secondary to diarrhea FEN/Renal: Nonobstructing left renal calculus Hypernatremia - Monitor renal function, I/O's. electrolytes replacement per protocol. - Condom catheter in place. - Free water 200 every 8. ID: Candiduria (cele tropicalis urine cx 08/17) ESBL positive Klebsiella/Pseudomonas pneumonia Stenotrophomonas in sputum 08/17 MRSA colonization sepsis UTI Klebsiella ESBL positive (has been treated) Watching off abx per ID: Diflucan 08/17-08/26 . Levaquin 08/20--08/26 for Stenotrophomonas. ID signed off, reconsult if needed. Completed course of meropenem for 08/11-08/20 for Klebsiella ESBL/pseudomonas pneumonia. On Lactinex tid Pertinent cultures Urine cx 08/17 - cele tropicalis Blood culture 08/17 negative sputum culture 08/17 - pseudomonas and Stenotrophomonas maltophilia. Urine culture: 08/02 Klebsiella pneumonia ESBL positive Urine culture: 08/02 Cele Tropicalis, C. Glabrata Sputum culture: 08/02 Pseudomonas, Klebsiella pneumonia ESBL positive Blood culture: 08/02 yeast species, Cele glabrata, Cele tropicalis - History of Multidrug resistant UTI- ESBL 02/19/15 , MRSA + 03/20/15 - Cele glabrata in urine 03/19/15 - Rechecked blood, sputum and urine cultures 07/06 no growth - 06/17 - blood cultures 2 - CONS/staph epi - 06/17 - sputum - ESBL positive Klebsiella/Pseudomonas Treated 15 days with tobramycin aerosols twice a day. - 06/17 - urine - C. glabrata/tropicalis - treated with Diflucan Endo: Sliding-scale insulin if needed for glycemic control Heme Normocytic Anemia Leukocytosis - Monitor CBC intermittently MSK Bilateral lower extremity Contractures Stage III sacral decubitus present on admission - Wound care evaluate and treat. Currently on Santyl daily with wet-to-dry changes. - Currently has recommended bed - Continue physical therapy Prophylaxis - GI - Prevacid - DVT - SCDs/ Lovenox. Full code. Overall prognosis is poor. Appreciate Palliative care's efforts. Becca Gallegos DO Sep 04, 2015 12:19
--- NOTE | 2015-09-04 17:28 | HHI.PR ---
Subjective Remarks On a T Bar Fio2 35 % % , and stable. On CPAP at HS. No change in Neuro state Remains Lethargic. On tube feeds. . Objective Vital Signs Date Time Temp Pulse Resp B/P Pulse Ox O2 Delivery O2 Flow Rate FiO2 09/04/15 16:00 98.8 89 25 108/58 93 09/04/15 15:44 93 T-piece 6.00 09/04/15 12:00 98.2 89 24 100/63 93 09/04/15 10:24 98 T-piece 6.00 28 09/04/15 09:00 Bi-Pap 6.00 30 Trach Collar Humidified 09/04/15 08:00 99.1 103 24 116/59 92 09/04/15 04:47 99 30 09/04/15 04:00 96.1 88 18 126/67 99 09/04/15 00:00 97.8 90 16 110/72 93 09/03/15 22:45 97 30 09/03/15 20:30 Nasal Cannula 6.00 09/03/15 20:00 96.9 86 18 116/75 94 I/O 09/03/15 09/03/15 09/03/15 09/04/15 09/04/15 09/04/15 06:59 14:59 22:59 06:59 14:59 22:59 Intake Total 427 ml 852 ml 0 ml 0 ml 0 ml Output Total 500 ml 750 ml 225 ml 300 ml 752 ml Balance -73 ml 102 ml -225 ml -300 ml -752 ml Intake Oral 0 ml 0 ml 0 ml Tube Feeding 427 ml 672 ml Other 180 ml Output Urine Total 500 ml 750 ml 225 ml 300 ml 750 ml Stool Total 2 ml # Bowel Movements 1 2 0 1 Result Diagram: 09/02/159 09/02/15338 Objective Remarks This is a thin white male who is Awake but no response to commands,with a trach tube in place. HEENT: Pupils are equal and reactive to light. Trach in neck. mild secretions. CHEST: Occ wheeze heard. Decreased breath sounds . CARDIOVASCULAR: S1 and S2 is normal. ABDOMEN: Soft, nondistended. He has a PEG tube in place. EXTREMITIES: No edema.muscle wasting. ulcer over sacrum. NEURO: Lethargic and Does not move his extremities .Reflexes not elicited. Assessment and Plan Assessment and Plan IMPRESSION 1. Respiratory failure, resolving 2. Sepsis, resolving. 3. UTI 4. Tracheobronchitis 5. Parkinson's disease 6. Dementia. 7. Severe Deconditioning. 8. Left Pneumothorax. Resolved. Plan : 1. Bipap 5/15, FIO2 30 % at HS 11 PM to 6 am. 2. Nebs qid , duoneb. 3. Cont Tube feeds at 60 CC 4. Cont T Bar daytime at FIo2 35 % for 17 hrs if tolerating. 5. Transfer to rehab soon 6. Trach toilet and lavage. 8. Lovenox 40 Mg S/Q daily. Darren Kiser MD Sep 04, 2015 17:28
[2015-09-04] MEDS: OLANZapine 5 MG TAB GT SCH (21:00)
[2015-09-04] MEDS: ENOXAPARIN SODIUM 40 MG/0.4 ML SYRINGE SQ SCH (22:00)
[2015-09-05] VITALS (12 sets, daily range): BP systolic 93–120; BP diastolic 54–71; PULSE 86–98; RESP 20–24; TEMP 97.5–99.6; O2SAT 92–100
[2015-09-05] MEDS: CHLORHEXIDINE GLUCONATE 2 % 1 PACK (2 CLOTHS) TOP SCH (04:00)
[2015-09-05] MEDS: FREE WATER G-TUBE SCH ×3 (04:54→21:21)
[2015-09-05] MEDS: CARBIDOPA/LEVODOPA 25 MG/100 MG TAB GT SCH ×3 (04:55→21:21)
[2015-09-05] MEDS: clonazePAM 1 MG TAB PO SCH ×3 (04:55→21:20)
[2015-09-05] MEDS: ARTIFICIAL TEARS OPTH SOLN 15 ML BTL EACH EYE SCH ×3 (09:00→18:00)
[2015-09-05] MEDS: COLLAGENASE OINT 30 GM TUBE TOP SCH (09:00)
[2015-09-05] MEDS: SODIUM CHLORIDE 0.9% FLUSH 5 ML FLUSH IVF SCH ×2 (09:00→21:21)
[2015-09-05] MEDS: LANSOPRAZOLE SOLUTAB 30 MG TAB NG SCH (09:58)
[2015-09-05] MEDS: GABAPENTIN 300 MG CAP G-TUBE SCH ×2 (09:58→21:20)
[2015-09-05] MEDS: LACTOBACILLUS ACIDOPHILUS TAB PO SCH ×3 (09:58→18:41)
[2015-09-05] MEDS: MIDODRINE 5 MG TAB G-TUBE SCH ×2 (09:58→21:20)
[2015-09-05] MEDS: QUEtiapine FUMARATE 25 MG TAB G-TUBE SCH ×2 (09:58→21:20)
[2015-09-05] MEDS: PARoxetine HCL 20 MG TAB G-TUBE SCH (09:58)
--- NOTE | 2015-09-05 13:34 | HHI.PR ---
Subjective Remarks Mr. Foreman remains unresponsive. Hemodynamically stable, no fever, chills. Tolerating tube feed well. Objective Vitals Vital Signs Date Time Temp Pulse Resp B/P Pulse Ox O2 Delivery O2 Flow Rate FiO2 09/05/15 12:26 99.4 89 23 112/69 94 09/05/15 09:54 96 6.00 40 09/05/15 08:49 97.8 89 24 120/71 92 09/05/15 05:02 98 BiPAP 40 09/05/15 05:02 98 40 09/05/15 04:00 98.5 87 20 93/54 100 09/05/15 01:08 97 50 09/05/15 00:00 97.5 89 24 103/63 92 09/04/15 20:15 Nasal Cannula 6.00 09/04/15 20:06 99 09/04/15 20:00 99.6 100 24 106/62 95 09/04/15 16:00 98.8 89 25 108/58 93 09/04/15 15:44 93 T-piece 6.00 I/O 09/04/15 09/04/15 09/04/15 09/05/15 09/05/15 09/05/15 07:00 15:00 23:00 07:00 15:00 23:00 Intake Total 0 ml 1446 ml Output Total 300 ml 752 ml 500 ml 300 ml Balance -300 ml 694 ml -500 ml -300 ml Intake Oral 0 ml 0 ml IV Total 0 ml Tube Feeding 1326 ml Other 120 ml Output Urine Total 300 ml 750 ml 500 ml 300 ml Stool Total 2 ml # Bowel Movements 1 1 Result Diagram: 09/02/15 0339 09/02/15 0339 Imaging Last Impressions Chest X-Ray 08/31/15 0000 Signed Impressions: Service Date/Time: Monday, August 31, 2015 02:05 - CONCLUSION: No acute cardiopulmonary disease identified. Kush Briscoe MD Tunnelled Chest Tube Removal 08/05/15 1100 Signed Impressions: Service Date/Time: Wednesday, August 05, 2015 11:00 - CONCLUSION: Uncomplicated chest tube removal. Blaine Jackson MD Chest Tube Change 07/31/15 0000 Signed Impressions: Service Date/Time: Friday, July 31, 2015 14:34 - CONCLUSION: Uncomplicated reposition of previously placed chest tube as above. Blaine Jackson MD Chest Tube Insertion 07/30/15 0000 Signed Impressions: Service Date/Time: July 14:50 - CONCLUSION: Uncomplicated chest tube placement as above. Blaine Jackson MD Catheter Change 07/27/15 0000 Signed Impressions: Service Date/Time: Monday, July 27, 2015 14:43 - CONCLUSION: Uncomplicated gastrostomy tube exchange as above. Blaine Jackson MD Chest CT 07/11/15 0000 Signed Impressions: Service Date/Time: Saturday, July 11, 2015 09:49 - CONCLUSION: Scattered patchy densities significantly improved from previous study. Tiny anterior right basilar pneumothorax. Right-sided chest tube in good position. Néstor Matamoros MD Head CT 06/18/151902 Signed Impressions: Service Date/Time: , June 18, 2015 19:31 - CONCLUSION: Diffuse atrophy unchanged. No acute intracranial findings. Kush Briscoe MD Abdomen/Pelvis CT 06/18/151902 Signed Impressions: Service Date/Time: June 19:36 - CONCLUSION: 1. Chronic nonspecific urinary bladder wall thickening. Bladder collapsed with Putnam catheter in place. 2. Chronic bilateral mid to lower lung zone groundglass opacity. 3. Nonobstructing left renal calculus. 4. Distended rectum. Kush Briscoe MD Objective Remarks GENERAL: Well-nourished, well-developed patient. SKIN: Warm and dry. HEAD: Normocephalic. EYES: No scleral icterus. No injection or drainage. NECK: 8.0 Distal XLT trach in place CARDIOVASCULAR: Regular rate and rhythm without murmurs, gallops, or rubs. RESPIRATORY: Moderate air entry. Fine crackles present. GASTROINTESTINAL: Abdomen soft, non-tender, nondistended. MUSCULOSKELETAL: 1+ dependent pedal edema. Contractures and deformities of fingers. Stage III coccyx/sacral decubitus ulcer Procedures 07/26- PEG replacement 07/29- right pigtail catheter placement for new pneumothorax 07/29 Date of Insertion: Jul 30, 2015 A/P Assessment and Plan Neuro/Psych: Parkinson's disease Cognitive disorder not otherwise specified Chronic encephalopathy Dementia Depression CT head 06/18/15: - diffuse atrophy unchanged. No acute intracranial findings Continue Sinemet 25/100 q8 via PEG, Seroquel 50 mg twice a day, olanzapine 5 mg a night, Klonopin 2 mg every 8 hours, Paxil 20 daily and Neurontin 300 mg twice a day. 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 Continue Lortab when necessary pain and fentanyl patch 50 g every 3 days for pain management. Fentanyl bolus prn breakthrough pain or if needed for turning/ nursing care/etc. Resp: Acute on chronic respiratory failure Chronic trach #8 Shiley distal XLT Pneumonia - resolved Right pneumothorax status post pigtail catheter 2 (resolved) On Tpiece at 35% 15 hours during day and PSV using Bipap 15/5 at 35% at night from 10 PM to 7 AM per pulmonology. Pulmonary Dr. Kiser following. Pulm toilet, trach care. Exchanged to 8 Distal XLT on 08/15 to facilitate suctioning, trach care. Bronchodilators ( DuoNeb) every 6 hours rewritten Status post chest tube on 07/06. Removed 07/16. Replacement again by interventional radiology on 07/30, chest tube removed 08/04, repeat films do not indicate any pneumothorax CXR from 08/30 shows no focal pneumonia or pneumothorax Cardiac History of orthostasis History of CAD History dyslipidemia History of hypertension Continue Midodrine 5 mg twice a day. On 2.5 twice a day at home GI: Chronic moderate protein energy malnutrition Dysphagia Status post PEG Internal hemorrhoids Gastroesophageal reflux disease - Tolerating Jevity 1.5 at 60 cc an hour per nutrition recommendations - Currently Prevacid 30 mg per PEG tube daily for GERD - Currently not on bowel regimen secondary to diarrhea FEN/Renal: Nonobstructing left renal calculus Hypernatremia - Monitor renal function, I/O's. electrolytes replacement per protocol. - Condom catheter in place. - Free water 200 every 8. ID: Candiduria (cele tropicalis urine cx 08/17) ESBL positive Klebsiella/Pseudomonas pneumonia Stenotrophomonas in sputum 08/17 MRSA colonization sepsis UTI Klebsiella ESBL positive (has been treated) Watching off abx per ID: Diflucan 08/17-08/26 . Levaquin 08/20--08/26 for Stenotrophomonas. ID signed off, reconsult if needed. Completed course of meropenem for 08/11-08/20 for Klebsiella ESBL/pseudomonas pneumonia. On Lactinex tid Pertinent cultures Urine cx 08/17 - cele tropicalis Blood culture 08/17 negative sputum culture 08/17 - pseudomonas and Stenotrophomonas maltophilia. Urine culture: 08/02 Klebsiella pneumonia ESBL positive Urine culture: 08/02 Cele Tropicalis, C. Glabrata Sputum culture: 08/02 Pseudomonas, Klebsiella pneumonia ESBL positive Blood culture: 08/02 yeast species, Cele glabrata, Cele tropicalis - History of Multidrug resistant UTI- ESBL 02/19/15 , MRSA + 03/20/15 - Cele glabrata in urine 03/19/15 - Rechecked blood, sputum and urine cultures 07/06 no growth - 06/17 - blood cultures 2 - CONS/staph epi - 06/17 - sputum - ESBL positive Klebsiella/Pseudomonas Treated 15 days with tobramycin aerosols twice a day. - 06/17 - urine - C. glabrata/tropicalis - treated with Diflucan Endo: Sliding-scale insulin if needed for glycemic control Heme Normocytic Anemia Leukocytosis - Monitor CBC intermittently MSK Bilateral lower extremity Contractures Stage III sacral decubitus present on admission - Wound care evaluate and treat. Currently on Santyl daily with wet-to-dry changes. - Currently has recommended bed - Continue physical therapy Prophylaxis - GI - Prevacid - DVT - SCDs/ Lovenox. Full code. Overall prognosis is poor. Appreciate Palliative care's efforts. Discharge plan: Patient is currently medically stable. Patient can be discharged back to SNF. Discussed with Pulmonology Dr. Kiser who agreed with this plan as well. Discharge either today or tomorrow. Becca Gallegos DO Sep 05, 2015 13:34
[2015-09-05] MEDS: ENOXAPARIN SODIUM 40 MG/0.4 ML SYRINGE SQ SCH (21:19)
[2015-09-05] MEDS: OLANZapine 5 MG TAB GT SCH (21:20)
[2015-09-05] MEDS: CHLORHEXIDINE 0.12% (ORAL KIT) 15 ML CUP MT SCH (21:24)
[2015-09-06] VITALS (11 sets, daily range): BP systolic 94–118; BP diastolic 58–85; PULSE 84–102; RESP 22–26; TEMP 97.5–99.8; O2SAT 92–98
[2015-09-06] MEDS: CHLORHEXIDINE GLUCONATE 2 % 1 PACK (2 CLOTHS) TOP SCH (04:00)
[2015-09-06] MEDS: FREE WATER G-TUBE SCH ×3 (05:34→20:25)
[2015-09-06] MEDS: CARBIDOPA/LEVODOPA 25 MG/100 MG TAB GT SCH ×3 (05:34→20:25)
[2015-09-06] MEDS: clonazePAM 1 MG TAB PO SCH ×3 (05:34→20:25)
[2015-09-06] MEDS: CHLORHEXIDINE 0.12% (ORAL KIT) 15 ML CUP MT SCH ×2 (08:00→20:00)
[2015-09-06] MEDS: REMOVE OLD PATCH TD SCH (08:00)
[2015-09-06] MEDS: SODIUM CHLORIDE 0.9% FLUSH 5 ML FLUSH IVF SCH ×2 (09:00→20:25)
[2015-09-06] MEDS: COLLAGENASE OINT 30 GM TUBE TOP SCH (09:00)
[2015-09-06] MEDS: ARTIFICIAL TEARS OPTH SOLN 15 ML BTL EACH EYE SCH ×3 (09:00→18:00)
--- NOTE | 2015-09-06 09:56 | HHI.PR ---
Subjective Remarks Mr. Foreman remains aphasic, does not follow commands. Had low grade temp - Tmax 99.4. Objective Vitals Vital Signs Date Time Temp Pulse Resp B/P Pulse Ox O2 Delivery O2 Flow Rate FiO2 09/06/15 08:13 99.3 101 26 118/79 92 09/06/15 04:00 97.9 84 22 105/68 98 09/06/15 04:00 Bi-Pap T-Piece 09/06/15 01:30 94 40 09/06/15 00:00 Bi-Pap 40 T-Piece 09/06/15 00:00 99.3 92 25 96/69 96 09/05/15 23:00 94 40 09/05/15 21:30 96 T-piece 6.00 40 09/05/15 21:30 94 40 09/05/15 20:01 88 09/05/15 20:00 99.6 98 21 105/65 94 09/05/15 20:00 T-Piece 40 09/05/15 16:04 98.4 86 24 109/62 93 09/05/15 12:26 99.4 89 23 112/69 94 I/O 09/05/15 09/05/15 09/05/15 09/06/15 09/06/15 09/06/15 07:00 15:00 23:00 07:00 15:00 23:00 Intake Total 838 ml 752 ml Output Total 300 ml 350 ml 200 ml 200 ml Balance -300 ml -350 ml 638 ml 552 ml Intake Oral 0 ml 0 ml Tube Feeding 588 ml 502 ml Tube Irrigant 50 ml 50 ml Other 200 ml 200 ml Output Urine Total 300 ml 350 ml 200 ml 200 ml # Bowel Movements 1 2 1 Result Diagram: 09/02/15 0339 09/02/15 0339 Imaging Last Impressions Chest X-Ray 08/31/15 0000 Signed Impressions: Service Date/Time: Monday, August 31, 2015 02:05 - CONCLUSION: No acute cardiopulmonary disease identified. Kush Briscoe MD Tunnelled Chest Tube Removal 08/05/15 1100 Signed Impressions: Service Date/Time: Wednesday, August 05, 2015 11:00 - CONCLUSION: Uncomplicated chest tube removal. Blaine Jackson MD Chest Tube Change 07/31/15 0000 Signed Impressions: Service Date/Time: Friday, July 31, 2015 14:34 - CONCLUSION: Uncomplicated reposition of previously placed chest tube as above. Blaine Jackson MD Chest Tube Insertion 07/30/15 0000 Signed Impressions: Service Date/Time: July 14:50 - CONCLUSION: Uncomplicated chest tube placement as above. Blaine Jackson MD Catheter Change 07/27/15 0000 Signed Impressions: Service Date/Time: Monday, July 27, 2015 14:43 - CONCLUSION: Uncomplicated gastrostomy tube exchange as above. Blaine Jackson MD Chest CT 07/11/15 0000 Signed Impressions: Service Date/Time: Saturday, July 11, 2015 09:49 - CONCLUSION: Scattered patchy densities significantly improved from previous study. Tiny anterior right basilar pneumothorax. Right-sided chest tube in good position. Néstor Matamoros MD Head CT 06/18/151902 Signed Impressions: Service Date/Time: June 19:31 - CONCLUSION: Diffuse atrophy unchanged. No acute intracranial findings. Kush Briscoe MD Abdomen/Pelvis CT 06/18/151902 Signed Impressions: Service Date/Time: June 19:36 - CONCLUSION: 1. Chronic nonspecific urinary bladder wall thickening. Bladder collapsed with Putnam catheter in place. 2. Chronic bilateral mid to lower lung zone groundglass opacity. 3. Nonobstructing left renal calculus. 4. Distended rectum. Kush Briscoe MD Objective Remarks GENERAL: Well-nourished, well-developed patient. Currently on humidified O2 - 6L. SKIN: Warm and dry. HEAD: Normocephalic. EYES: No scleral icterus. No injection or drainage. NECK: 8.0 Distal XLT trach in place CARDIOVASCULAR: Regular rate and rhythm without murmurs, gallops, or rubs. RESPIRATORY: Moderate air entry. Gargly sound. Fine crackles present. GASTROINTESTINAL: Abdomen soft, non-tender, nondistended. MUSCULOSKELETAL: 1+ dependent pedal edema. Contractures and deformities of fingers. Stage III coccyx/sacral decubitus ulcer Procedures 07/26- PEG replacement 07/29- right pigtail catheter placement for new pneumothorax 07/29 Date of Insertion: Jul 30, 2015 A/P Assessment and Plan 06/18/2015: Pt is a 54 yr man with multiple medial problems including Parkinson' s disease, advanced dementia, hyponatremia, anxiety, pneumonia, GERD, cognitive disorder, and multidrug resistant UTI- ESBL02/19/15 , who resides in a [facility]. Pt by report was found by staff in [facility] to be less alert and having respiratory difficultly and fevers. Pt was brought to ED adn placed on ventilator. Patient had a long ICU stay - please refer to last critical care note for details. Neuro/Psych: Parkinson's disease Cognitive disorder not otherwise specified Chronic encephalopathy Dementia Depression CT head 06/18/15: - diffuse atrophy unchanged. No acute intracranial findings Continue Sinemet 25/100 q8 via PEG, Seroquel 50 mg twice a day, olanzapine 5 mg a night, Klonopin 2 mg every 8 hours, Paxil 20 daily and Neurontin 300 mg twice a day. 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 Continue Lortab when necessary pain and fentanyl patch 50 g every 3 days for pain management. Fentanyl bolus prn breakthrough pain or if needed for turning/ nursing care/etc. Resp: Acute on chronic respiratory failure Chronic trach #8 Shiley distal XLT Pneumonia - resolved Right pneumothorax status post pigtail catheter 2 (resolved) On Tpiece at 35% 15 hours during day and PSV using Bipap 15/5 at 35% at night from 10 PM to 7 AM per pulmonology. Pulmonary Dr. Kiser following. Pulm toilet, trach care. Exchanged to 8 Distal XLT on 08/15 to facilitate suctioning, trach care. Bronchodilators ( DuoNeb) every 6 hours rewritten Status post chest tube on 07/06. Removed 07/16. Replacement again by interventional radiology on 07/30, chest tube removed 08/04, repeat films do not indicate any pneumothorax CXR from 08/30 shows no focal pneumonia or pneumothorax Cardiac History of orthostasis History of CAD History dyslipidemia History of hypertension Continue Midodrine 5 mg twice a day. On 2.5 twice a day at home GI: Chronic moderate protein energy malnutrition Dysphagia Status post PEG Internal hemorrhoids Gastroesophageal reflux disease - Tolerating Jevity 1.5 at 60 cc an hour per nutrition recommendations - Currently Prevacid 30 mg per PEG tube daily for GERD - Currently not on bowel regimen secondary to diarrhea FEN/Renal: Nonobstructing left renal calculus Hypernatremia - Monitor renal function, I/O's. electrolytes replacement per protocol. - Condom catheter in place. - Free water 200 every 8. ID: Candiduria (cele tropicalis urine cx 08/17) ESBL positive Klebsiella/Pseudomonas pneumonia Stenotrophomonas in sputum 08/17 MRSA colonization sepsis UTI Klebsiella ESBL positive (has been treated) Watching off abx per ID: Diflucan 08/17-08/26 . Levaquin 08/20--08/26 for Stenotrophomonas. ID signed off, reconsult if needed. Completed course of meropenem for 08/11-08/20 for Klebsiella ESBL/pseudomonas pneumonia. On Lactinex tid Pertinent cultures Urine cx 08/17 - cele tropicalis Blood culture 08/17 negative sputum culture 08/17 - pseudomonas and Stenotrophomonas maltophilia. Urine culture: 08/02 Klebsiella pneumonia ESBL positive Urine culture: 08/02 Cele Tropicalis, C. Glabrata Sputum culture: 08/02 Pseudomonas, Klebsiella pneumonia ESBL positive Blood culture: 08/02 yeast species, Cele glabrata, Cele tropicalis - History of Multidrug resistant UTI- ESBL 02/19/15 , MRSA + 03/20/15 - Cele glabrata in urine 03/19/15 - Rechecked blood, sputum and urine cultures 07/06 no growth - 06/17 - blood cultures 2 - CONS/staph epi - 06/17 - sputum - ESBL positive Klebsiella/Pseudomonas Treated 15 days with tobramycin aerosols twice a day. - 06/17 - urine - C. glabrata/tropicalis - treated with Diflucan Endo: Sliding-scale insulin if needed for glycemic control Heme Normocytic Anemia Leukocytosis - Monitor CBC intermittently MSK Bilateral lower extremity Contractures Stage III sacral decubitus present on admission - Wound care evaluate and treat. Currently on Santyl daily with wet-to-dry changes. - Currently has recommended bed - Continue physical therapy Prophylaxis - GI - Prevacid - DVT - SCDs/ Lovenox. Full code. Overall prognosis is poor. Appreciate Palliative care's efforts. Discharge plan: Patient is currently medically stable. Patient can be discharged back to SNF. Discussed with Pulmonology Dr. Kiser who agreed with this plan as well. Per case management, SNF facility has to re-evaluate patient since patient has been in the hospital for over 2 months. Re-evaluation will likely take a place on 09/07/2015. Becca Gallegos DO Sep 06, 2015 09:56
[2015-09-06] MEDS: LACTOBACILLUS ACIDOPHILUS TAB PO SCH ×3 (10:09→18:29)
[2015-09-06] MEDS: fentaNYL 50 MCG/HR PATCH TD SCH (10:09)
[2015-09-06] MEDS: LANSOPRAZOLE SOLUTAB 30 MG TAB NG SCH (10:09)
[2015-09-06] MEDS: PARoxetine HCL 20 MG TAB G-TUBE SCH (10:10)
[2015-09-06] MEDS: QUEtiapine FUMARATE 25 MG TAB G-TUBE SCH ×2 (10:10→20:25)
[2015-09-06] MEDS: GABAPENTIN 300 MG CAP G-TUBE SCH ×2 (10:10→20:25)
[2015-09-06] MEDS: MIDODRINE 5 MG TAB G-TUBE SCH ×2 (10:10→20:24)
[2015-09-06] MEDS: RESP: ALBUTEROL 2.5 MG/3 ML NEB (PRN) NEB (12:18)
--- NOTE | 2015-09-06 12:39 | RADRPT ---
EXAM DATE/TIME: 09/06/2015 12:12 [facility] COMPARISON: CHEST SINGLE AP, August 31, 2015, 2:05. INDICATIONS : Congestion MEDICAL HISTORY : Hypertension. Gastroesophageal reflux disease. Diabetes mellitus type II SURGICAL HISTORY : Tracheostomy ENCOUNTER: Subsequent ACUITY: 1 month PAIN SCORE: Non-responsive. LOCATION: Bilateral chest FINDINGS: Portable AP view of the chest demonstrates a normal-sized cardiac silhouette. Tracheostomy is present . There is mild motion artifact. No effusion, consolidation, or pneumothorax is visualized. Bones and soft tissues demonstrate no acute finding. CONCLUSION: No acute cardiopulmonary abnormality is identified. Erlin Barajas MD on September 06, 2015 at 12:36 Board Certified Radiologist. This report was verified electronically.
[2015-09-06] MEDS: HYOSCYAMINE SOLN 0.125 MG/ML 15 ML BTL PO PRN (20:24)
[2015-09-06] MEDS: ENOXAPARIN SODIUM 40 MG/0.4 ML SYRINGE SQ SCH (20:24)
[2015-09-06] MEDS: OLANZapine 5 MG TAB GT SCH (20:25)
[2015-09-07] VITALS (12 sets, daily range): BP systolic 103–119; BP diastolic 66–86; PULSE 80–111; RESP 19–28; TEMP 95.5–98.9; O2SAT 92–98
[2015-09-07] MEDS: CHLORHEXIDINE GLUCONATE 2 % 1 PACK (2 CLOTHS) TOP SCH (04:00)
[2015-09-07] MEDS: clonazePAM 1 MG TAB PO SCH ×3 (05:41→21:48)
[2015-09-07] MEDS: CARBIDOPA/LEVODOPA 25 MG/100 MG TAB GT SCH ×3 (05:41→21:48)
[2015-09-07] MEDS: FREE WATER G-TUBE SCH ×3 (05:41→21:49)
[2015-09-07] MEDS: CHLORHEXIDINE 0.12% (ORAL KIT) 15 ML CUP MT SCH ×2 (08:00→21:47)
[2015-09-07] MEDS: SODIUM CHLORIDE 0.9% FLUSH 5 ML FLUSH IVF SCH ×2 (09:00→21:49)
[2015-09-07] MEDS: ARTIFICIAL TEARS OPTH SOLN 15 ML BTL EACH EYE SCH ×3 (09:00→17:31)
[2015-09-07] MEDS: QUEtiapine FUMARATE 25 MG TAB G-TUBE SCH ×2 (12:35→21:48)
[2015-09-07] MEDS: MIDODRINE 5 MG TAB G-TUBE SCH ×2 (12:35→21:48)
[2015-09-07] MEDS: GABAPENTIN 300 MG CAP G-TUBE SCH ×2 (12:35→21:47)
[2015-09-07] MEDS: PARoxetine HCL 20 MG TAB G-TUBE SCH (12:35)
[2015-09-07] MEDS: LACTOBACILLUS ACIDOPHILUS TAB PO SCH ×3 (12:35→16:07)
[2015-09-07] MEDS: LANSOPRAZOLE SOLUTAB 30 MG TAB NG SCH (12:35)
[2015-09-07] MEDS: COLLAGENASE OINT 30 GM TUBE TOP SCH (12:36)
--- NOTE | 2015-09-07 13:07 | HHI.PR ---
Subjective Remarks On a T Bar Fio2 35 % % , and stable. On CPAP at HS. No change overall. Remains Lethargic. On tube feeds. Waiting for placement. Objective Vital Signs Date Time Temp Pulse Resp B/P Pulse Ox O2 Delivery O2 Flow Rate FiO2 09/07/15 12:11 98.9 88 20 112/72 96 09/07/15 08:36 92 T-piece 6.00 40 09/07/15 08:20 95.5 111 20 115/76 93 09/07/15 04:37 96 40 09/07/15 04:00 98.9 89 28 119/86 94 09/07/15 01:16 97 40 09/07/15 00:00 98.8 80 19 103/66 98 09/07/15 00:00 Bi-Pap 40 09/06/15 23:30 97 40 09/06/15 20:08 86 09/06/15 20:00 97.8 86 22 118/85 98 09/06/15 20:00 T-Piece 40 09/06/15 19:10 97 T-piece 6.00 40 09/06/15 16:44 97.5 85 23 94/58 97 I/O 09/06/15 09/06/15 09/06/15 09/07/15 09/07/15 09/07/15 07:00 15:00 23:00 07:00 15:00 23:00 Intake Total 752 ml 872 ml 0 ml Output Total 200 ml 350 ml 100 ml 700 ml Balance 552 ml -350 ml 772 ml -700 ml Intake Oral 0 ml 0 ml 0 ml Tube Feeding 502 ml 622 ml Tube Irrigant 50 ml 50 ml Other 200 ml 200 ml Output Urine Total 200 ml 350 ml 100 ml 700 ml # Bowel Movements 1 1 Objective Remarks This is a thin white male who is Awake but no response to commands,with a trach tube in place. HEENT: Pupils are equal and reactive to light. Trach in neck. mild secretions. CHEST: Occ wheeze heard. Decreased breath sounds .Basal crackles CARDIOVASCULAR: S1 and S2 is normal. ABDOMEN: Soft, nondistended. He has a PEG tube in place. EXTREMITIES: No edema.muscle wasting. ulcer over sacrum. NEURO: Lethargic and Does not move his extremities .Reflexes not elicited. Assessment and Plan Assessment and Plan IMPRESSION 1. Respiratory failure, resolving 2. Sepsis, resolving. 3. UTI 4. Tracheobronchitis 5. Parkinson's disease 6. Dementia. 7. Severe Deconditioning. 8. Left Pneumothorax. Resolved. Plan : 1. Cont Bipap 515, FIO2 30 % at HS 11 PM to 6 am. 2. Nebs qid , duoneb. 3. Cont Tube feeds at 60 CC 4. Cont T Bar daytime at FIo2 40 % for 17 hrs if tolerating. 5. Transfer to rehab soon. 6. Trach toilet and lavage. 8. Cont Lovenox 40 Mg S/Q daily. Darren Kiser MD Sep 07, 2015 13:07
--- NOTE | 2015-09-07 13:23 | HHI.PR ---
Subjective Remarks The pt was resting comfortably. Physical therapy was about to start working with him. Objective Vitals Vital Signs Date Time Temp Pulse Resp B/P Pulse Ox O2 Delivery O2 Flow Rate FiO2 09/07/15 12:11 98.9 88 20 112/72 96 09/07/15 08:36 92 T-piece 6.00 40 09/07/15 08:20 95.5 111 20 115/76 93 09/07/15 04:37 96 40 09/07/15 04:00 98.9 89 28 119/86 94 09/07/15 01:16 97 40 09/07/15 00:00 98.8 80 19 103/66 98 09/07/15 00:00 Bi-Pap 40 09/06/15 23:30 97 40 09/06/15 20:08 86 09/06/15 20:00 97.8 86 22 118/85 98 09/06/15 20:00 T-Piece 40 09/06/15 19:10 97 T-piece 6.00 40 09/06/15 16:44 97.5 85 23 94/58 97 I/O 09/06/15 09/06/15 09/06/15 09/07/15 09/07/15 09/07/15 07:00 15:00 23:00 07:00 15:00 23:00 Intake Total 752 ml 872 ml 0 ml Output Total 200 ml 350 ml 100 ml 700 ml Balance 552 ml -350 ml 772 ml -700 ml Intake Oral 0 ml 0 ml 0 ml Tube Feeding 502 ml 622 ml Tube Irrigant 50 ml 50 ml Other 200 ml 200 ml Output Urine Total 200 ml 350 ml 100 ml 700 ml # Bowel Movements 1 1 Imaging Last Impressions Chest X-Ray 09/06/15 0000 Signed Impressions: Service Date/Time: Sunday, September 06, 2015 12:12 - CONCLUSION: No acute cardiopulmonary abnormality is identified. Erlin Barajas MD Tunnelled Chest Tube Removal 08/05/15 1100 Signed Impressions: Service Date/Time: Wednesday, August 05, 2015 11:00 - CONCLUSION: Uncomplicated chest tube removal. Blaine Jackson MD Chest Tube Change 07/31/15 0000 Signed Impressions: Service Date/Time: Friday, July 31, 2015 14:34 - CONCLUSION: Uncomplicated reposition of previously placed chest tube as above. Blaine Jackson MD Chest Tube Insertion 07/30/15 0000 Signed Impressions: Service Date/Time: July 14:50 - CONCLUSION: Uncomplicated chest tube placement as above. Blaine Jackson MD Catheter Change 07/27/15 0000 Signed Impressions: Service Date/Time: Monday, July 27, 2015 14:43 - CONCLUSION: Uncomplicated gastrostomy tube exchange as above. Blaine Jackson MD Chest CT 07/11/15 0000 Signed Impressions: Service Date/Time: Saturday, July 11, 2015 09:49 - CONCLUSION: Scattered patchy densities significantly improved from previous study. Tiny anterior right basilar pneumothorax. Right-sided chest tube in good position. Néstor Matamoros MD Head CT 06/18/151902 Signed Impressions: Service Date/Time: , June 18, 2015 19:31 - CONCLUSION: Diffuse atrophy unchanged. No acute intracranial findings. Kush Briscoe MD Abdomen/Pelvis CT 06/18/151902 Signed Impressions: Service Date/Time: June 19:36 - CONCLUSION: 1. Chronic nonspecific urinary bladder wall thickening. Bladder collapsed with Putnam catheter in place. 2. Chronic bilateral mid to lower lung zone groundglass opacity. 3. Nonobstructing left renal calculus. 4. Distended rectum. Kush Briscoe MD Objective Remarks GENERAL: Well-nourished, well-developed patient. SKIN: Warm and dry. HEAD: Normocephalic. EYES: No scleral icterus. No injection or drainage. NECK: 8.0 Distal XLT trach in place CARDIOVASCULAR: Regular rate and rhythm without murmurs, gallops, or rubs. RESPIRATORY: Moderate air entry. Scattered rhonchi. GASTROINTESTINAL: Abdomen soft, non-tender, nondistended. MUSCULOSKELETAL: No edema. Contractures and deformities of fingers. Stage III coccyx/sacral decubitus ulcer. NEURO: Unresponsive to voice. Procedures 07/26- PEG replacement 07/29- right pigtail catheter placement for new pneumothorax 07/29 Medications and IVs Current Medications Medications (Trade) Dose Ordered Sig/Jassi Route Start Time Stop Time Status Last Admin (NS Flush) 2 ml UNSCH PRN IVF 06/18/15 21:30 08/18/15 05:13 (NS Flush) 2 ml BID IVF 06/19/15 09:00 09/07/15 09:00 (Tylenol 650 Mg/ 20 ml Liq) 650 mg Q6H PRN TUBE 06/18/15 21:30 08/18/15 09:13 (Tears Naturale Opth Soln) 1 drop TID EACH EYE 06/19/15 09:00 09/06/15 18:00 (Zofran Inj) 4 mg Q6H PRN IV 06/18/15 21:30 08/27/15 01:12 (Sinemet 25-100 Mg) 1 tab Q8HR GT 06/19/15 06:00 09/07/15 05:41 (Neurontin) 300 mg BID G-TUBE 06/19/15 09:00 09/07/15 12:35 (Lactinex) 1 tab TID PO 06/19/15 09:00 09/07/15 12:35 (Paxil) 20 mg DAILY G-TUBE 06/19/15 09:00 09/07/15 12:35 (Pill Splitter) 1 ea UNSCH PRN OTHER 06/19/15 03:30 06/28/15 09:35 (Prevacid Odt) 30 mg DAILY NG 07/08/15 09:00 09/07/15 12:35 Miscellaneous Information 1 Q3D TD 07/11/15 08:00 09/06/15 08:00 (Duragesic 50 Mcg Patch.72 Hr) 1 patch Q3D TD 07/08/15 09:00 09/06/15 10:09 (KlonoPIN) 2 mg Q8HR PO 07/09/15 14:00 09/07/15 05:41 (Proamatine) 5 mg BID G-TUBE 07/12/15 09:00 09/07/15 12:35 (SEROquel) 50 mg BID G-TUBE 07/18/15 09:00 09/07/15 12:35 (Morphine Inj) 2 mg Q3H PRN IV PUSH 07/28/15 00:45 08/18/15 05:13 (Peridex 0.12% Liq) 15 ml BID@08,20 MT 07/29/15 20:00 09/07/15 08:00 (Ativan Inj) 0.5 mg Q6H PRN IVP 08/04/15 13:00 08/16/15 11:06 (Lovenox Inj) 40 mg Q24H SQ 08/09/15 22:00 09/06/15 20:24 (Pyote 5-325 Mg) 1 tab Q6H PRN PO 08/15/15 15:45 (Sublimaze Inj) 50 mcg Q2H PRN IV PUSH 08/15/15 15:45 08/17/15 04:31 (ZyPREXA) 5 mg HS GT 08/15/15 21:00 09/06/15 20:25 (Santyl Oint) 1 applic DAILY TOP 08/21/15 09:00 09/07/15 12:36 (Free Water) VOLUME: 200 ML Q8HR G-TUBE 09/01/15 14:00 09/07/15 12:36 (Levsin Liq) 0.125 mg Q4H PRN PO 09/06/15 11:00 09/06/15 20:24 Date of Insertion: Jul 30, 2015 A/P Assessment and Plan Parkinson's disease/ Cognitive disorder not otherwise specified/ Chronic encephalopathy CT head 06/18/15: - diffuse atrophy unchanged. No acute intracranial findings. - Continue Sinemet 25/100 q8 via PEG, Seroquel 50 mg twice a day, olanzapine 5 mg a night, Klonopin 2 mg every 8 hours, Paxil 20 daily and Neurontin 300 mg twice a day. 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 - Continue Lortab when necessary pain and fentanyl patch 50 g every 3 days for pain management. Fentanyl bolus prn breakthrough pain or if needed for turning/ nursing care/etc. Acute on chronic respiratory failure Chronic trach #8 Shiley distal XLT. Appreciate pulmonology consult. S/p treatment for PNA. Right pneumothorax status post pigtail catheter 2 (resolved) . - On Tpiece at 35% 15 hours during day and PSV using Bipap 15/5 at 35% at night from 10 PM to 7 AM per pulmonology. - Pulm toilet, trach care. - Exchanged to 8 Distal XLT on 08/15 to facilitate suctioning, trach care. - Bronchodilators ( DuoNeb) every 6 hours. History of orthostasis On midodrine 2.5 mg twice a day at home. - Continue midodrine 5 mg twice a day. Malnutrition Status post PEG - Tolerating Jevity 1.5 at 60 cc an hour per nutrition recommendations. - Currently Prevacid 30 mg per PEG tube daily for GERD. - Currently not on bowel regimen secondary to diarrhea. Hypernatremia Improved. - Free water 200 every 8. Sepsis/ PNA/ UTI ID was consulted. ESBL klebsiella and cele tropicalis in urine cx. ESBL positive Klebsiella/Pseudomonas pneumonia. Stenotrophomonas in sputum 08/17. MRSA colonization. - Watching off abx per ID: Diflucan 08/17-08/26 . Levaquin 08/20--08/26 for Stenotrophomonas. Completed course of meropenem for 08/11-08/20 for Klebsiella ESBL /pseudomonas pneumonia. S/p tobramycin as well. - On Lactinex tid. Bilateral lower extremity contractures/ Stage III sacral decubitus present on admission Currently has recommended bed. - Wound care evaluate and treat. Currently on Santyl daily with wet-to-dry changes. - Continue physical therapy. GI - Prevacid DVT - SCDs/ Lovenox Discharge Planning Awaiting clinical improvement. Salazar Santa DO Sep 07, 2015 13:23
[2015-09-07] MEDS: OLANZapine 5 MG TAB GT SCH (21:47)
[2015-09-07] MEDS: ENOXAPARIN SODIUM 40 MG/0.4 ML SYRINGE SQ SCH (21:48)
[2015-09-08] VITALS (12 sets, daily range): BP systolic 94–123; BP diastolic 61–80; PULSE 74–92; RESP 16–20; TEMP 96.9–98.3; O2SAT 95–98
[2015-09-08 03:36] LABS: HEMATOCRIT 29.5 % (39.0-51.0); MEAN CORPUSCULAR HEMOGLOBIN 26.9 PG (27.0-34.0); MEAN CORPUSCULAR HGB CONC 31.3 % (32.0-36.0); PLATELET COUNT 190 TH/MM3 (150-450); RED BLOOD COUNT 3.44 MIL/MM3 (4.50-5.90); RED CELL DISTRIBUTION WIDTH 15.1 % (11.6-17.2); REVIEW FLAG FINAL; WHITE BLOOD COUNT 9.3 TH/MM3 (4.0-11.0)
[2015-09-08 03:44] LABS: ANION GAP 0 MEQ/L (5-15); BICARBONATE 43.9 MEQ/L (21.0-32.0); BLOOD UREA NITROGEN 23 MG/DL (7-18); CHLORIDE 103 MEQ/L (98-107); GLOMERULAR FILTRATION RATE 183 ML/MIN (>89); MAGNESIUM 2.2 MG/DL (1.5-2.5); POTASSIUM 4.1 MEQ/L (3.5-5.1); SODIUM (NA) 147 MEQ/L (136-145)
[2015-09-08] MEDS: clonazePAM 1 MG TAB PO SCH ×3 (05:18→21:31)
[2015-09-08] MEDS: FREE WATER G-TUBE SCH ×3 (05:18→21:32)
[2015-09-08] MEDS: CARBIDOPA/LEVODOPA 25 MG/100 MG TAB GT SCH ×3 (05:18→21:31)
[2015-09-08] MEDS: HYOSCYAMINE SOLN 0.125 MG/ML 15 ML BTL PO PRN (05:25)
[2015-09-08] MEDS: CHLORHEXIDINE 0.12% (ORAL KIT) 15 ML CUP MT SCH ×2 (08:00→21:32)
[2015-09-08] MEDS: GABAPENTIN 300 MG CAP G-TUBE SCH ×2 (09:00→21:31)
[2015-09-08] MEDS: MIDODRINE 5 MG TAB G-TUBE SCH ×2 (09:00→21:31)
[2015-09-08] MEDS: COLLAGENASE OINT 30 GM TUBE TOP SCH (09:00)
[2015-09-08] MEDS: SODIUM CHLORIDE 0.9% FLUSH 5 ML FLUSH IVF SCH ×2 (09:00→21:32)
[2015-09-08] MEDS: QUEtiapine FUMARATE 25 MG TAB G-TUBE SCH ×2 (09:00→21:31)
[2015-09-08] MEDS: ARTIFICIAL TEARS OPTH SOLN 15 ML BTL EACH EYE SCH ×3 (09:00→18:00)
[2015-09-08] MEDS: LACTOBACILLUS ACIDOPHILUS TAB PO SCH ×3 (09:00→18:00)
[2015-09-08] MEDS: PARoxetine HCL 20 MG TAB G-TUBE SCH (09:00)
[2015-09-08] MEDS: LANSOPRAZOLE SOLUTAB 30 MG TAB NG SCH (09:00)
--- NOTE | 2015-09-08 09:47 | HHI.PR ---
Subjective Remarks The patient continues to have secretions but appears comfortable. Nursing concerned for potential sinus infection. Objective Vitals Vital Signs Date Time Temp Pulse Resp B/P Pulse Ox O2 Delivery O2 Flow Rate FiO2 09/08/15 04:28 98 40 09/08/15 04:00 96.9 80 18 94/65 98 09/08/15 04:00 40 Bi-Pap 6.00 Trach Collar T-Piece 09/08/15 02:27 76 09/08/15 01:12 98 40 09/08/15 00:00 40 Bi-Pap 6.00 Trach Collar T-Piece 09/08/15 00:00 97.0 76 20 100/65 98 09/07/15 21:49 94 40 09/07/15 21:43 97 T-piece 40 09/07/15 20:00 97.3 82 19 107/66 94 09/07/15 20:00 40 Bi-Pap 6.00 Trach Collar T-Piece 09/07/15 20:00 84 09/07/15 15:53 97.9 80 20 103/70 98 09/07/15 12:11 98.9 88 20 112/72 96 I/O 09/07/15 09/07/15 09/07/15 09/08/15 09/08/15 09/08/15 06:59 14:59 22:59 06:59 14:59 22:59 Intake Total 0 ml 893 ml 240 ml Output Total 700 ml 50 ml 350 ml 0 ml Balance -700 ml -50 ml 543 ml 240 ml Intake Oral 0 ml 0 ml 240 ml Tube Feeding 893 ml Output Urine Total 700 ml 50 ml 350 ml 0 ml # Bowel Movements 3 Result Diagram: 09/08/15 0323 09/08/15 0323 Imaging Last Impressions Chest X-Ray 09/06/15 0000 Signed Impressions: Service Date/Time: Sunday, September 06, 2015 12:12 - CONCLUSION: No acute cardiopulmonary abnormality is identified. Erlin Barajas MD Tunnelled Chest Tube Removal 08/05/15 1100 Signed Impressions: Service Date/Time: Wednesday, August 05, 2015 11:00 - CONCLUSION: Uncomplicated chest tube removal. Blaine Jackson MD Chest Tube Change 07/31/15 0000 Signed Impressions: Service Date/Time: Friday, July 31, 2015 14:34 - CONCLUSION: Uncomplicated reposition of previously placed chest tube as above. Blaine Jackson MD Chest Tube Insertion 07/30/15 0000 Signed Impressions: Service Date/Time: July 14:50 - CONCLUSION: Uncomplicated chest tube placement as above. Blaine Jackson MD Catheter Change 07/27/15 0000 Signed Impressions: Service Date/Time: Monday, July 27, 2015 14:43 - CONCLUSION: Uncomplicated gastrostomy tube exchange as above. Blaine Jackson MD Chest CT 07/11/15 0000 Signed Impressions: Service Date/Time: Saturday, July 11, 2015 09:49 - CONCLUSION: Scattered patchy densities significantly improved from previous study. Tiny anterior right basilar pneumothorax. Right-sided chest tube in good position. Néstor Matamoros MD Head CT 06/18/151902 Signed Impressions: Service Date/Time: June 19:31 - CONCLUSION: Diffuse atrophy unchanged. No acute intracranial findings. Kush Briscoe MD Abdomen/Pelvis CT 06/18/151902 Signed Impressions: Service Date/Time: June 19:36 - CONCLUSION: 1. Chronic nonspecific urinary bladder wall thickening. Bladder collapsed with Putnam catheter in place. 2. Chronic bilateral mid to lower lung zone groundglass opacity. 3. Nonobstructing left renal calculus. 4. Distended rectum. Kush Briscoe MD Objective Remarks GENERAL: Well-nourished, well-developed patient. SKIN: Warm and dry. HEAD: Normocephalic. EYES: No scleral icterus. No injection or drainage. NECK: 8.0 Distal XLT trach in place. CARDIOVASCULAR: Regular rate and rhythm without murmurs, gallops, or rubs. RESPIRATORY: + secretions. Moderate air entry. Scattered rhonchi. GASTROINTESTINAL: Abdomen soft, non-tender, nondistended. MUSCULOSKELETAL: No edema. Contractures and deformities of fingers. Stage III coccyx/sacral decubitus ulcer. NEURO: Unresponsive to voice. Procedures 07/26- PEG replacement 07/29- right pigtail catheter placement for new pneumothorax 07/29 Medications and IVs Current Medications Medications (Trade) Dose Ordered Sig/Jassi Route Start Time Stop Time Status Last Admin (NS Flush) 2 ml UNSCH PRN IVF 06/18/15 21:30 08/18/15 05:13 (NS Flush) 2 ml BID IVF 06/19/15 09:00 09/07/15 21:49 (Tylenol 650 Mg/ 20 ml Liq) 650 mg Q6H PRN TUBE 06/18/15 21:30 08/18/15 09:13 (Tears Naturale Opth Soln) 1 drop TID EACH EYE 06/19/15 09:00 09/07/15 17:31 (Zofran Inj) 4 mg Q6H PRN IV 06/18/15 21:30 08/27/15 01:12 (Sinemet 25-100 Mg) 1 tab Q8HR GT 06/19/15 06:00 09/08/15 05:18 (Neurontin) 300 mg BID G-TUBE 06/19/15 09:00 09/07/15 21:47 (Lactinex) 1 tab TID PO 06/19/15 09:00 09/07/15 16:07 (Paxil) 20 mg DAILY G-TUBE 06/19/15 09:00 09/07/15 12:35 (Pill Splitter) 1 ea UNSCH PRN OTHER 06/19/15 03:30 06/28/15 09:35 (Prevacid Odt) 30 mg DAILY NG 07/08/15 09:00 09/07/15 12:35 Miscellaneous Information 1 Q3D TD 07/11/15 08:00 09/06/15 08:00 (Duragesic 50 Mcg Patch.72 Hr) 1 patch Q3D TD 07/08/15 09:00 09/06/15 10:09 (KlonoPIN) 2 mg Q8HR PO 07/09/15 14:00 09/08/15 05:18 (Proamatine) 5 mg BID G-TUBE 07/12/15 09:00 09/07/15 21:48 (SEROquel) 50 mg BID G-TUBE 07/18/15 09:00 09/07/15 21:48 (Morphine Inj) 2 mg Q3H PRN IV PUSH 07/28/15 00:45 08/18/15 05:13 (Peridex 0.12% Liq) 15 ml BID@08,20 MT 07/29/15 20:00 09/07/15 21:47 (Ativan Inj) 0.5 mg Q6H PRN IVP 08/04/15 13:00 08/16/15 11:06 (Lovenox Inj) 40 mg Q24H SQ 08/09/15 22:00 09/07/15 21:48 (Carson 5-325 Mg) 1 tab Q6H PRN PO 08/15/15 15:45 (Sublimaze Inj) 50 mcg Q2H PRN IV PUSH 08/15/15 15:45 08/17/15 04:31 (ZyPREXA) 5 mg HS GT 08/15/15 21:00 09/07/15 21:47 (Santyl Oint) 1 applic DAILY TOP 08/21/15 09:00 09/07/15 12:36 (Free Water) VOLUME: 300 ML Q8HR G-TUBE 09/01/15 14:00 09/08/15 05:18 (Levsin Liq) 0.125 mg Q4H PRN PO 09/06/15 11:00 09/08/15 05:25 Date of Insertion: Jul 30, 2015 A/P Assessment and Plan Parkinson's disease/ Cognitive disorder not otherwise specified/ Chronic encephalopathy CT head 06/18/15: - diffuse atrophy unchanged. No acute intracranial findings. - Continue Sinemet 25/100 q8 via PEG, Seroquel 50 mg twice a day, olanzapine 5 mg a night, Klonopin 2 mg every 8 hours, Paxil 20 daily and Neurontin 300 mg twice a day. 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 - Continue Lortab when necessary pain and fentanyl patch 50 g every 3 days for pain management. Fentanyl bolus prn breakthrough pain or if needed for turning/ nursing care/etc. Acute on chronic respiratory failure Chronic trach #8 Shiley distal XLT. Appreciate pulmonology consult. S/p treatment for PNA. Right pneumothorax status post pigtail catheter 2 (resolved) . Continues to have secretions. - On Tpiece at 35% 15 hours during day and PSV using Bipap 15/5 at 35% at night from 10 PM to 7 AM per pulmonology. - Pulm toilet, trach care. - Exchanged to 8 Distal XLT on 08/15 to facilitate suctioning, trach care. - Bronchodilators ( DuoNeb) every 6 hours. - follow up with pulmonology. History of orthostasis On midodrine 2.5 mg twice a day at home. - Continue midodrine 5 mg twice a day. Malnutrition Status post PEG - Tolerating Jevity 1.5 at 60 cc an hour per nutrition recommendations. - Currently Prevacid 30 mg per PEG tube daily for GERD. - Currently not on bowel regimen secondary to diarrhea. Hypernatremia Stable. - Increase free water to 300 ml every 8 hours. Sepsis/ PNA/ UTI ID was consulted. ESBL klebsiella and cele tropicalis in urine cx. ESBL positive Klebsiella/Pseudomonas pneumonia. Stenotrophomonas in sputum 08/17. MRSA colonization. Watching off abx per ID: Diflucan 08/17-08/26 . Levaquin --08/26 for Stenotrophomonas. Completed course of meropenem for 08/11-08/20 for Klebsiella ESBL/pseudomonas pneumonia. S/p tobramycin as well. CXR 09/05 was unremarkable. - On Lactinex tid. Bilateral lower extremity contractures/ Stage III sacral decubitus present on admission Currently has recommended bed. - Wound care evaluate and treat. Currently on Santyl daily with wet-to-dry changes. - Continue physical therapy. GI - Prevacid DVT - SCDs/ Lovenox Discharge Planning Awaiting clinical improvement. Salazar Santa DO Sep 08, 2015 09:47
--- NOTE | 2015-09-08 17:51 | HHI.PR ---
Subjective Remarks On a T Bar Fio2 35 % % , and tolerating it.. On CPAP at HS. No fever. Remains Lethargic. On tube feeds. Waiting for placement. Objective Vital Signs Date Time Temp Pulse Resp B/P Pulse Ox O2 Delivery O2 Flow Rate FiO2 09/08/15 16:00 97.3 86 20 104/61 96 09/08/15 15:30 Bi-Pap 6.00 40 Trach Collar T-Piece 09/08/15 14:11 92 09/08/15 12:00 98.3 74 20 107/69 95 09/08/15 08:00 97.1 81 20 123/80 95 09/08/15 08:00 95 T-piece 40 09/08/15 04:28 98 40 09/08/15 04:00 96.9 80 18 94/65 98 09/08/15 04:00 40 Bi-Pap 6.00 Trach Collar T-Piece 09/08/15 02:27 76 09/08/15 01:12 98 40 09/08/15 00:00 40 Bi-Pap 6.00 Trach Collar T-Piece 09/08/15 00:00 97.0 76 20 100/65 98 09/07/15 21:49 94 40 09/07/15 21:43 97 T-piece 40 09/07/15 20:00 97.3 82 19 107/66 94 09/07/15 20:00 40 Bi-Pap 6.00 Trach Collar T-Piece 09/07/15 20:00 84 I/O 09/07/15 09/07/15 09/07/15 09/08/15 09/08/15 09/08/15 07:00 15:00 23:00 07:00 15:00 23:00 Intake Total 0 ml 893 ml 240 ml 880 ml Output Total 700 ml 50 ml 350 ml 0 ml Balance -700 ml -50 ml 543 ml 240 ml 880 ml Intake Oral 0 ml 0 ml 240 ml Tube Feeding 893 ml 480 ml Other 400 ml Output Urine Total 700 ml 50 ml 350 ml 0 ml # Bowel Movements 3 3 Result Diagram: 09/08/15 0323 09/08/15322 Objective Remarks This is a thin white male who is Awake but no response to commands,with a trach tube in place. HEENT: Pupils are equal and reactive to light. Trach in neck. CHEST: Occ wheeze heard. Decreased breath sounds .Basal crackles CARDIOVASCULAR: S1 and S2 is normal. ABDOMEN: Soft, nondistended. BS ++. He has a PEG tube in place. EXTREMITIES: No edema.muscle wasting. ulcer over sacrum. NEURO: Lethargic and Does not move his extremities .Reflexes not elicited. Assessment and Plan Assessment and Plan IMPRESSION 1. Respiratory failure, resolving 2. Sepsis, resolving. 3. UTI 4. Tracheobronchitis 5. Parkinson's disease 6. Dementia. 7. Severe Deconditioning. 8. Left Pneumothorax. Resolved. Plan : 1. Cont Bipap 06/20, FIO2 30 % at HS 11 PM to 6 am. 2. Nebs qid , duoneb. 3. Cont Tube feeds at 60 CC 4. Cont T Bar daytime at FIo2 40 % for 17 hrs if tolerating. 5. Transfer to rehab soon. 6. Cont Trach toilet and lavage. 8. Cont Lovenox 40 Mg S/Q daily. 9. Get Chest X ray. Darren Kiser MD Sep 08, 2015 17:51
[2015-09-08] MEDS: OLANZapine 5 MG TAB GT SCH (21:31)
[2015-09-08] MEDS: ENOXAPARIN SODIUM 40 MG/0.4 ML SYRINGE SQ SCH (21:32)
[2015-09-09] VITALS (10 sets, daily range): BP systolic 95–124; BP diastolic 67–86; PULSE 53–100; RESP 24–37; TEMP 97–98; O2SAT 93–100
[2015-09-09] MEDS: CARBIDOPA/LEVODOPA 25 MG/100 MG TAB GT SCH ×3 (05:39→21:49)
[2015-09-09] MEDS: FREE WATER G-TUBE SCH ×3 (05:39→21:50)
[2015-09-09] MEDS: clonazePAM 1 MG TAB PO SCH ×3 (05:39→21:48)
[2015-09-09] MEDS: CHLORHEXIDINE 0.12% (ORAL KIT) 15 ML CUP MT SCH ×2 (08:00→20:00)
[2015-09-09] MEDS: REMOVE OLD PATCH TD SCH (08:00)
[2015-09-09] MEDS: ARTIFICIAL TEARS OPTH SOLN 15 ML BTL EACH EYE SCH ×3 (09:00→17:24)
[2015-09-09] MEDS: SODIUM CHLORIDE 0.9% FLUSH 5 ML FLUSH IVF SCH ×2 (09:00→21:50)
[2015-09-09] MEDS: LANSOPRAZOLE SOLUTAB 30 MG TAB NG SCH (09:25)
[2015-09-09] MEDS: QUEtiapine FUMARATE 25 MG TAB G-TUBE SCH ×2 (09:25→21:49)
[2015-09-09] MEDS: PARoxetine HCL 20 MG TAB G-TUBE SCH (09:25)
[2015-09-09] MEDS: GABAPENTIN 300 MG CAP G-TUBE SCH ×2 (09:25→21:49)
[2015-09-09] MEDS: LACTOBACILLUS ACIDOPHILUS TAB PO SCH ×3 (09:25→17:25)
[2015-09-09] MEDS: MIDODRINE 5 MG TAB G-TUBE SCH ×2 (09:25→21:49)
[2015-09-09] MEDS: COLLAGENASE OINT 30 GM TUBE TOP SCH (09:26)
[2015-09-09] MEDS: fentaNYL 50 MCG/HR PATCH TD SCH (09:26)
--- NOTE | 2015-09-09 10:43 | HHI.PR ---
Subjective Remarks 54 y/o male residential [facility] resident with advanced Parkinson's disease ; dementia; tracheostomy and PEG tube . Patient is Bedbound status and Unable to communicate 09/09/15-patient seen and examined; unable to communicate. Does not follow commands. Tachypneic and currently afebrile Objective Vitals Vital Signs Date Time Temp Pulse Resp B/P Pulse Ox O2 Delivery O2 Flow Rate FiO2 09/09/15 09:15 Trach Collar 6.00 40 T-Piece 09/09/15 09:15 83 09/09/15 09:05 98 T-piece 6.00 50 09/09/15 04:03 96 40 09/09/15 04:00 98.0 78 24 115/72 94 09/09/15 04:00 Bi-Pap 6.00 40 Trach Collar T-Piece 09/09/15 00:20 97.0 96 24 103/78 96 09/09/15 00:00 Bi-Pap 6.00 40 Trach Collar T-Piece 09/08/15 22:07 98 40 09/08/15 22:02 95 T-piece 40 09/08/15 20:00 Bi-Pap 6.00 40 Trach Collar T-Piece 09/08/15 20:00 97.9 76 16 110/78 96 09/08/15 16:00 97.3 86 20 104/61 96 09/08/15 15:30 Bi-Pap 6.00 40 Trach Collar T-Piece 09/08/15 14:11 92 09/08/15 12:00 98.3 74 20 107/69 95 I/O 09/08/15 09/08/15 09/08/15 09/09/15 09/09/15 09/09/15 07:00 15:00 23:00 07:00 15:00 23:00 Intake Total 240 ml 880 ml 80 ml Output Total 0 ml 800 ml 250 ml Balance 240 ml -800 ml 880 ml -170 ml Intake Oral 240 ml 80 ml Tube Feeding 480 ml Other 400 ml Output Urine Total 0 ml 800 ml 250 ml # Bowel Movements 1 3 Result Diagram: 09/08/15 0323 09/08/15 0323 Imaging Last Impressions Chest X-Ray 09/06/15 0000 Signed Impressions: Service Date/Time: Sunday, September 06, 2015 12:12 - CONCLUSION: No acute cardiopulmonary abnormality is identified. Erlin Barajas MD Tunnelled Chest Tube Removal 08/05/15 1100 Signed Impressions: Service Date/Time: Wednesday, August 05, 2015 11:00 - CONCLUSION: Uncomplicated chest tube removal. Blaine Jackson MD Chest Tube Change 07/31/15 0000 Signed Impressions: Service Date/Time: Friday, July 31, 2015 14:34 - CONCLUSION: Uncomplicated reposition of previously placed chest tube as above. Blaine Jackson MD Chest Tube Insertion 07/30/15 0000 Signed Impressions: Service Date/Time: July 14:50 - CONCLUSION: Uncomplicated chest tube placement as above. Blaine Jackson MD Catheter Change 07/27/15 0000 Signed Impressions: Service Date/Time: Monday, July 27, 2015 14:43 - CONCLUSION: Uncomplicated gastrostomy tube exchange as above. Blaine Jackson MD Chest CT 07/11/15 0000 Signed Impressions: Service Date/Time: Saturday, July 11, 2015 09:49 - CONCLUSION: Scattered patchy densities significantly improved from previous study. Tiny anterior right basilar pneumothorax. Right-sided chest tube in good position. Néstor Matamoros MD Head CT 06/18/151902 Signed Impressions: Service Date/Time: June 19:31 - CONCLUSION: Diffuse atrophy unchanged. No acute intracranial findings. Kush Briscoe MD Abdomen/Pelvis CT 06/18/151902 Signed Impressions: Service Date/Time: June 19:36 - CONCLUSION: 1. Chronic nonspecific urinary bladder wall thickening. Bladder collapsed with Putnam catheter in place. 2. Chronic bilateral mid to lower lung zone groundglass opacity. 3. Nonobstructing left renal calculus. 4. Distended rectum. Kush Briscoe MD Objective Remarks GENERAL: NAD and unable to communicate-trachea in place SKIN: Warm and dry. HEAD: Normocephalic. EYES: No scleral icterus. No injection or drainage. NECK: Supple, trachea midline. No JVD or lymphadenopathy. CARDIOVASCULAR: Regular rate and rhythm without murmurs, gallops, or rubs. RESPIRATORY: Tachypneic. No accessory muscle use. GASTROINTESTINAL: Abdomen soft, non-tender, nondistended. MUSCULOSKELETAL: No cyanosis, or edema. BACK: Nontender without obvious deformity. No CVA tenderness. 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 No acute intracranial findings. - Continue Sinemet 25/100 q8 via PEG, Seroquel 50 mg twice a day, olanzapine 5 mg a night, Klonopin 2 mg every 8 hours, Paxil 20 daily and Neurontin 300 mg twice a day. - Continue Lortab when necessary pain and fentanyl patch 50 g every 3 days for pain management. Fentanyl bolus prn breakthrough pain or if needed for turning/ nursing care/etc. Acute on chronic respiratory failure Chronic trach #8 Shiley distal XLT. Appreciate pulmonology consult. S/p treatment for PNA. Right pneumothorax status post pigtail catheter 2 (resolved) . Continues to have secretions. - On Tpiece at 35% 15 hours during day and PSV using Bipap 15/5 at 35% at night from 10 PM to 7 AM per pulmonology. Pulm toilet, trach care, Bronchodilators ( DuoNeb) every 6 hours. History of orthostasis: On midodrine 5 mg twice a day Malnutrition: Status post PEG.Tolerating Jevity 1.5 at 60 cc an hour per nutrition recommendations. Currently Prevacid 30 mg per PEG tube daily for GERD. Hypernatremia Stable. free water 300 ml every 8 hours. Sepsis/ PNA/ UTI ID was consulted. ESBL klebsiella and cele tropicalis in urine cx. ESBL positive Klebsiella/Pseudomonas pneumonia. Stenotrophomonas in sputum 08/17. MRSA colonization. Watching off abx per ID: Diflucan 08/17-08/26 . Levaquin --08/26 for Stenotrophomonas. Completed course of meropenem for 08/11-08/20 for Klebsiella ESBL/pseudomonas pneumonia. S/p tobramycin as well. CXR 09/05 was unremarkable. Bilateral lower extremity contractures/ Stage III sacral decubitus present on admission - Wound care evaluate and treat. Currently on Santyl daily with wet-to-dry changes. Continue physical therapy. GI - Prevacid DVT - SCDs/ Néstor Martin MD Sep 09, 2015 10:43
--- NOTE | 2015-09-09 17:08 | HHI.PR ---
Subjective Remarks Stable On a T Bar Fio2 35 % , and tolerating it.. On CPAP at HS. No fever. Remains Lethargic. On tube feeds. Waiting for placement. Objective Vital Signs Date Time Temp Pulse Resp B/P Pulse Ox O2 Delivery O2 Flow Rate FiO2 09/09/15 09:15 Trach Collar 6.00 40 T-Piece 09/09/15 09:15 83 09/09/15 09:05 98 T-piece 6.00 50 09/09/15 07:30 99 37 124/86 98 09/09/15 04:03 96 40 09/09/15 04:00 98.0 78 24 115/72 94 09/09/15 04:00 Bi-Pap 6.00 40 Trach Collar T-Piece 09/09/15 00:20 97.0 96 24 103/78 96 09/09/15 00:00 Bi-Pap 6.00 40 Trach Collar T-Piece 09/08/15 22:07 98 40 09/08/15 22:02 95 T-piece 40 09/08/15 20:00 Bi-Pap 6.00 40 Trach Collar T-Piece 09/08/15 20:00 97.9 76 16 110/78 96 I/O 09/08/15 09/08/15 09/08/15 09/09/15 09/09/15 09/09/15 07:00 15:00 23:00 07:00 15:00 23:00 Intake Total 240 ml 880 ml 80 ml Output Total 0 ml 800 ml 250 ml Balance 240 ml -800 ml 880 ml -170 ml Intake Oral 240 ml 80 ml Tube Feeding 480 ml Other 400 ml Output Urine Total 0 ml 800 ml 250 ml # Bowel Movements 1 3 Result Diagram: 09/08/15 0323 09/08/15 0323 Objective Remarks This is a thin white male who is Awake but no response to commands,with a trach tube in place. HEENT: Pupils are equal and reactive to light. Trach in neck. CHEST: Occ wheeze heard. Decreased breath sounds .Basal crackles CARDIOVASCULAR: S1 and S2 is normal. ABDOMEN: Soft, nondistended. BS +. He has a PEG tube in place. EXTREMITIES: No edema.muscle wasting. ulcer over sacrum. NEURO: Lethargic and Does not move his extremities .Reflexes not elicited. Assessment and Plan Assessment and Plan IMPRESSION 1. Respiratory failure, resolving 2. Sepsis, resolving. 3. UTI 4. Tracheobronchitis 5. Parkinson's disease 6. Dementia. 7. Severe Deconditioning. 8. Left Pneumothorax. Resolved. Plan : 1. Cont Bipap 5/15, FIO2 30 % at HS 11 PM to 6 am. 2. Nebs qid , duoneb. 3. Cont Tube feeds at 60 CC 4. Cont T Bar daytime at FIo2 40 % for 17 hrs if tolerating. 5. Transfer to rehab soon. 6. Cont Trach toilet and lavage. 8. Cont Lovenox 40 Mg S/Q daily. 9. Get Labs in am. Darren Kiser MD Sep 09, 2015 17:08
[2015-09-09] MEDS: ENOXAPARIN SODIUM 40 MG/0.4 ML SYRINGE SQ SCH (21:49)
[2015-09-09] MEDS: OLANZapine 5 MG TAB GT SCH (21:49)
[2015-09-10] VITALS (7 sets, daily range): BP systolic 97–119; BP diastolic 60–69; PULSE 79–96; RESP 24–32; TEMP 95.5–97.6; O2SAT 96–100
[2015-09-10] MEDS: CARBIDOPA/LEVODOPA 25 MG/100 MG TAB GT SCH ×3 (05:30→22:29)
[2015-09-10] MEDS: clonazePAM 1 MG TAB PO SCH ×3 (05:30→22:29)
[2015-09-10] MEDS: FREE WATER G-TUBE SCH ×3 (05:31→22:00)
[2015-09-10 07:45] LABS: BICARBONATE 41.6 MEQ/L (21.0-32.0); POTASSIUM 4.4 MEQ/L (3.5-5.1)
[2015-09-10] MEDS: COLLAGENASE OINT 30 GM TUBE TOP SCH ×2 (09:00→09:56)
[2015-09-10] MEDS: QUEtiapine FUMARATE 25 MG TAB G-TUBE SCH ×2 (09:40→22:28)
[2015-09-10] MEDS: PARoxetine HCL 20 MG TAB G-TUBE SCH (09:40)
[2015-09-10] MEDS: MIDODRINE 5 MG TAB G-TUBE SCH ×2 (09:40→22:29)
[2015-09-10] MEDS: LANSOPRAZOLE SOLUTAB 30 MG TAB NG SCH (09:41)
[2015-09-10] MEDS: CHLORHEXIDINE 0.12% (ORAL KIT) 15 ML CUP MT SCH ×2 (09:41→20:00)
[2015-09-10] MEDS: LACTOBACILLUS ACIDOPHILUS TAB PO SCH ×3 (09:41→18:08)
[2015-09-10] MEDS: GABAPENTIN 300 MG CAP G-TUBE SCH ×2 (09:41→22:28)
[2015-09-10] MEDS: SODIUM CHLORIDE 0.9% FLUSH 5 ML FLUSH IVF SCH ×2 (09:42→22:29)
[2015-09-10] MEDS: ARTIFICIAL TEARS OPTH SOLN 15 ML BTL EACH EYE SCH ×3 (09:42→18:08)
--- NOTE | 2015-09-10 11:28 | HHI.PR ---
Subjective Remarks 54 y/o male senior living senior care resident with advanced Parkinson's disease ; dementia; tracheostomy and PEG tube . Patient is Bedbound status and Unable to communicate 09/09/15-patient seen and examined; unable to communicate. Does not follow commands. Tachypneic and currently afebrile 09/10/15-patient seen and examined; nonverbal and does not follow command. Tachypneic and stable Objective Vitals Vital Signs Date Time Temp Pulse Resp B/P Pulse Ox O2 Delivery O2 Flow Rate FiO2 09/10/15 08:00 96.2 88 32 119/60 96 09/10/15 04:00 96 Bi-Pap 6.00 40 Trach Collar T-Piece 09/10/15 03:50 96 40 09/10/15 00:00 97.6 89 30 97/69 96 09/10/15 00:00 96 Bi-Pap 6.00 40 Trach Collar T-Piece 09/09/15 22:30 93 T-piece 6.00 40 09/09/15 22:30 94 40 09/09/15 20:00 100 09/09/15 20:00 97.6 53 32 112/70 93 09/09/15 20:00 Trach Collar 6.00 40 T-Piece 09/09/15 16:00 98.0 77 34 95/67 93 09/09/15 12:00 97.4 79 30 108/71 100 I/O 09/09/15 09/09/15 09/09/15 09/10/15 09/10/15 09/10/15 06:59 14:59 22:59 06:59 14:59 22:59 Intake Total 80 ml 0 ml 1988 ml Output Total 250 ml 300 ml 600 ml 50 ml Balance -170 ml -300 ml -600 ml 1938 ml Intake Oral 80 ml 0 ml Tube Feeding 1388 ml Other 600 ml Output Urine Total 250 ml 300 ml 600 ml 50 ml # Bowel Movements 1 0 1 Result Diagram: 09/08/15 0323 09/10/15 0707 Objective Remarks GENERAL: NAD and unable to communicate-trachea in place SKIN: Warm and dry. HEAD: Normocephalic. EYES: No scleral icterus. No injection or drainage. NECK: Supple, trachea midline. No JVD or lymphadenopathy. CARDIOVASCULAR: Regular rate and rhythm without murmurs, gallops, or rubs. RESPIRATORY: Tachypneic. No accessory muscle use. GASTROINTESTINAL: Abdomen soft, non-tender, nondistended. MUSCULOSKELETAL: No cyanosis, or edema. BACK: Nontender without obvious deformity. No CVA tenderness. 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 No acute intracranial findings. - Continue Sinemet 25/100 q8 via PEG, Seroquel 50 mg twice a day, olanzapine 5 mg a night, Klonopin 2 mg every 8 hours, Paxil 20 daily and Neurontin 300 mg twice a day. - Continue Lortab when necessary pain and fentanyl patch 50 g every 3 days for pain management. Fentanyl bolus prn breakthrough pain or if needed for turning/ nursing care/etc. Acute on chronic respiratory failure Chronic trach #8 Shiley distal XLT. Appreciate pulmonology consult. S/p treatment for PNA. Right pneumothorax status post pigtail catheter 2 (resolved) . Continues to have secretions. - On Tpiece at 35% 15 hours during day and PSV using Bipap 15/5 at 35% at night from 10 PM to 7 AM per pulmonology. Pulm toilet, trach care, Bronchodilators ( DuoNeb) every 6 hours. History of orthostasis: On midodrine 5 mg twice a day Malnutrition: Status post PEG.Tolerating Jevity 1.5 at 60 cc an hour per nutrition recommendations. Currently Prevacid 30 mg per PEG tube daily for GERD. Hypernatremia Stable. free water 300 ml every 8 hours. Sepsis/ PNA/ UTI ID was consulted. ESBL klebsiella and cele tropicalis in urine cx. ESBL positive Klebsiella/Pseudomonas pneumonia. Stenotrophomonas in sputum 08/17. MRSA colonization. Watching off abx per ID: Diflucan 08/17-08/26 . Levaquin --08/26 for Stenotrophomonas. Completed course of meropenem for 08/11-08/20 for Klebsiella ESBL/pseudomonas pneumonia. S/p tobramycin as well. CXR 09/05 was unremarkable. Bilateral lower extremity contractures/ Stage III sacral decubitus present on admission - Wound care evaluate and treat. Currently on Santyl daily with wet-to-dry changes. Continue physical therapy. GI - Prevacid DVT - SCDs/ Lovenox Continue with current treatment Néstor Linn MD Sep 10, 2015 11:28
--- NOTE | 2015-09-10 12:59 | HHI.PR ---
Subjective Remarks Stable On a T Bar Fio2 35 % . On CPAP at HS. No fever. Remains Lethargic. Trach secretions are white.On tube feeds. Waiting for placement. Objective Vital Signs Date Time Temp Pulse Resp B/P Pulse Ox O2 Delivery O2 Flow Rate FiO2 09/10/15 08:00 96.2 88 32 119/60 96 09/10/15 04:00 96 Bi-Pap 6.00 40 Trach Collar T-Piece 09/10/15 03:50 96 40 09/10/15 00:00 97.6 89 30 97/69 96 09/10/15 00:00 96 Bi-Pap 6.00 40 Trach Collar T-Piece 09/09/15 22:30 93 T-piece 6.00 40 09/09/15 22:30 94 40 09/09/15 20:00 100 09/09/15 20:00 97.6 53 32 112/70 93 09/09/15 20:00 Trach Collar 6.00 40 T-Piece 09/09/15 16:00 98.0 77 34 95/67 93 I/O 09/09/15 09/09/15 09/09/15 09/10/15 09/10/15 09/10/15 06:59 14:59 22:59 06:59 14:59 22:59 Intake Total 80 ml 0 ml 1988 ml Output Total 250 ml 300 ml 600 ml 50 ml Balance -170 ml -300 ml -600 ml 1938 ml Intake Oral 80 ml 0 ml Tube Feeding 1388 ml Other 600 ml Output Urine Total 250 ml 300 ml 600 ml 50 ml # Bowel Movements 1 0 1 Result Diagram: 09/08/15 0323 09/10/15 0707 Objective Remarks This is a thin white male who is Awake but no response to commands,with a trach tube in place. HEENT: Pupils are equal and reactive to light. Trach in neck. CHEST: Occ wheeze heard. Decreased breath sounds with Basal crackles. CARDIOVASCULAR: S1 and S2 is normal. ABDOMEN: Soft, nondistended. BS +. He has a PEG tube in place. EXTREMITIES: No edema.muscle wasting. ulcer over sacrum. NEURO: Lethargic and Does not move his extremities .Reflexes not elicited. Assessment and Plan Assessment and Plan IMPRESSION 1. Respiratory failure, resolving 2. Sepsis, resolving. 3. UTI 4. Tracheobronchitis 5. Parkinson's disease 6. Dementia. 7. Severe Deconditioning. 8. Left Pneumothorax. Resolved. Plan : 1. Cont Bipap 06/20, FIO2 30 % at HS 11 PM to 6 am. 2. Nebs qid , duoneb. 3. Cont Tube feeds at 60 CC 4. Cont T Bar daytime at FIo2 40 % for 17 hrs if tolerating. 5. Transfer to rehab . 6. Cont Trach toilet and lavage. 8. Cont Lovenox 40 Mg S/Q daily. 9. Get C XR in am. Darren Kiser MD Sep 10, 2015 12:59
[2015-09-10] MEDS: OLANZapine 5 MG TAB GT SCH (22:28)
[2015-09-10] MEDS: ENOXAPARIN SODIUM 40 MG/0.4 ML SYRINGE SQ SCH (22:28)
[2015-09-10] MEDS: HYOSCYAMINE SOLN 0.125 MG/ML 15 ML BTL PO PRN (22:30)
[2015-09-11] VITALS (11 sets, daily range): BP systolic 106–142; BP diastolic 64–91; PULSE 80–99; RESP 20–32; TEMP 96.2–96.8; O2SAT 94–98
[2015-09-11] MEDS: clonazePAM 1 MG TAB PO SCH ×3 (05:58→22:23)
[2015-09-11] MEDS: FREE WATER G-TUBE SCH ×3 (05:58→22:24)
[2015-09-11] MEDS: CARBIDOPA/LEVODOPA 25 MG/100 MG TAB GT SCH ×3 (05:58→22:24)
--- NOTE | 2015-09-11 06:40 | RADRPT ---
EXAM DATE/TIME: 09/11/2015 05:55 [facility] COMPARISON: CHEST SINGLE AP, August 18, 2015, 9:58. INDICATIONS : Respiratory failure. Evaluate for infiltrate per order. MEDICAL HISTORY : Hypertension. Gastroesophageal reflux disease. Diabetes mellitus type II SURGICAL HISTORY : Tracheostomy. ENCOUNTER: Subsequent ACUITY: 3 months PAIN SCORE: Non-responsive. LOCATION: Bilateral chest FINDINGS: A single view of the chest demonstrates minimal scattered subsegmental opacity in the lungs which [place] ears fairly stable over multiple previous chest radiographs and may relate to scarring. No dense cons olidation or pleural effusion. No pneumothorax. Tracheostomy in satisfactory position. CONCLUSION: 1. Scattered parenchymal opacities in the lungs, stable. Findings probably postinflammatory and assoc iated with some distal airway disease and bronchiectasis based on prior chest CT findings. No new inf iltrate. Tracheostomy unchanged. Amaury Ellsworth MD on September 11, 2015 at 6:34 Board Certified Radiologist. This report was verified electronically.
[2015-09-11] MEDS: CHLORHEXIDINE 0.12% (ORAL KIT) 15 ML CUP MT SCH ×2 (08:00→22:24)
[2015-09-11] MEDS: SODIUM CHLORIDE 0.9% FLUSH 5 ML FLUSH IVF SCH ×2 (09:00→22:24)
[2015-09-11] MEDS: MIDODRINE 5 MG TAB G-TUBE SCH ×2 (09:25→22:24)
[2015-09-11] MEDS: QUEtiapine FUMARATE 25 MG TAB G-TUBE SCH ×2 (09:25→22:23)
[2015-09-11] MEDS: GABAPENTIN 300 MG CAP G-TUBE SCH ×2 (09:25→22:23)
[2015-09-11] MEDS: LANSOPRAZOLE SOLUTAB 30 MG TAB NG SCH (09:25)
[2015-09-11] MEDS: PARoxetine HCL 20 MG TAB G-TUBE SCH (09:25)
[2015-09-11] MEDS: LACTOBACILLUS ACIDOPHILUS TAB PO SCH ×3 (09:25→18:07)
[2015-09-11] MEDS: ARTIFICIAL TEARS OPTH SOLN 15 ML BTL EACH EYE SCH ×3 (09:26→18:07)
[2015-09-11] MEDS: HYOSCYAMINE SOLN 0.125 MG/ML 15 ML BTL PO PRN (09:26)
[2015-09-11] MEDS: COLLAGENASE OINT 30 GM TUBE TOP SCH (09:26)
--- NOTE | 2015-09-11 11:24 | HHI.PR ---
Subjective Remarks 54 y/[facility] male detention care [facility] resident with advanced Parkinson's disease ; dementia; tracheostomy and PEG tube . Patient is Bedbound status and Unable to communicate 09/09/15-patient seen and examined; unable to communicate. Does not follow commands. Tachypneic and currently afebrile 09/10/15-patient seen and examined; nonverbal and does not follow command. Tachypneic and stable 09/11/15-patient seen and examined; nonverbal and no change. Objective Vitals Vital Signs Date Time Temp Pulse Resp B/P Pulse Ox O2 Delivery O2 Flow Rate FiO2 09/11/15 08:00 96.2 93 31 108/71 97 09/11/15 04:00 96.3 87 20 108/64 97 09/11/15 04:00 Bi-Pap 40 09/11/15 02:05 97 40 09/11/15 00:00 96.3 99 24 108/67 97 09/11/15 00:00 Bi-Pap 40 09/10/15 20:00 T-Piece 40 09/10/15 20:00 96.7 92 24 108/69 100 09/10/15 20:00 96 09/10/15 17:47 T-piece 6.00 40 09/10/15 16:00 95.5 79 30 102/66 100 09/10/15 15:51 Trach Collar 6.00 T-Piece 09/10/15 15:51 Bi-Pap 9.00 40 Trach Collar T-Piece 09/10/15 12:00 96.3 90 28 117/64 97 I/O 09/10/15 09/10/15 09/10/15 09/11/15 09/11/15 09/11/15 07:00 15:00 23:00 07:00 15:00 23:00 Intake Total 1988 ml 1549 ml 856 ml Output Total 50 ml 850 ml 25 ml 275 ml Balance 1938 ml -850 ml 1524 ml 581 ml Intake Oral 0 ml Tube Feeding 1388 ml 599 ml 506 ml Tube Irrigant 50 ml 50 ml Other 600 ml 900 ml 300 ml Output Urine Total 50 ml 850 ml 25 ml 275 ml # Bowel Movements 1 1 1 1 Result Diagram: 09/08/15 0323 09/10/15 0707 Objective Remarks GENERAL: NAD and unable to communicate-trachea in place SKIN: Warm and dry. HEAD: Normocephalic. EYES: No scleral icterus. No injection or drainage. NECK: Supple, trachea midline. No JVD or lymphadenopathy. CARDIOVASCULAR: Regular rate and rhythm without murmurs, gallops, or rubs. RESPIRATORY: Tachypneic. No accessory muscle use. GASTROINTESTINAL: Abdomen soft, non-tender, nondistended. MUSCULOSKELETAL: No cyanosis, or edema. BACK: Nontender without obvious deformity. No CVA tenderness. 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 No acute intracranial findings. - Continue Sinemet 25/100 q8 via PEG, Seroquel 50 mg twice a day, olanzapine 5 mg a night, Klonopin 2 mg every 8 hours, Paxil 20 daily and Neurontin 300 mg twice a day. - Continue Lortab when necessary pain and fentanyl patch 50 g every 3 days for pain management. Fentanyl bolus prn breakthrough pain or if needed for turning/ nursing care/etc. Acute on chronic respiratory failure Chronic trach #8 Shiley distal XLT. Appreciate pulmonology consult. S/p treatment for PNA. Right pneumothorax status post pigtail catheter 2 (resolved) . Continues to have secretions. - On Tpiece at 35% 15 hours during day and PSV using Bipap 15/5 at 35% at night from 10 PM to 7 AM per pulmonology. Pulm toilet, trach care, Bronchodilators ( DuoNeb) every 6 hours. History of orthostasis: On midodrine 5 mg twice a day Malnutrition: Status post PEG.Tolerating Jevity 1.5 at 60 cc an hour per nutrition recommendations. Currently Prevacid 30 mg per PEG tube daily for GERD. Hypernatremia Stable. free water 300 ml every 8 hours. Sepsis/ PNA/ UTI ID was consulted. ESBL klebsiella and cele tropicalis in urine cx. ESBL positive Klebsiella/Pseudomonas pneumonia. Stenotrophomonas in sputum 08/17. MRSA colonization. Watching off abx per ID: Diflucan 08/17-08/26 . Levaquin --08/26 for Stenotrophomonas. Completed course of meropenem for 08/11-08/20 for Klebsiella ESBL/pseudomonas pneumonia. S/p tobramycin as well. CXR 09/05 was unremarkable. Bilateral lower extremity contractures/ Stage III sacral decubitus present on admission - Wound care evaluate and treat. Currently on Santyl daily with wet-to-dry changes. Continue physical therapy. GI - Prevacid DVT - SCDs/ Lovenox Continue with current treatment Néstor Linn MD Sep 11, 2015 11:23
--- NOTE | 2015-09-11 19:00 | HHI.PR ---
Subjective Remarks Tachypneic On a T Bar Fio2 35 % . On CPAP at HS. No fever. Remains Lethargic. Trach secretions are white.On tube feeds. Waiting for placement. Objective Vital Signs Date Time Temp Pulse Resp B/P Pulse Ox O2 Delivery O2 Flow Rate FiO2 09/11/15 16:00 96.4 83 29 106/69 94 09/11/15 15:00 6.00 09/11/15 12:00 96.4 90 32 110/64 98 09/11/15 09:30 6.00 09/11/15 08:10 94 T-piece 35 09/11/15 08:00 96.2 93 31 108/71 97 09/11/15 04:00 96.3 87 20 108/64 97 09/11/15 04:00 Bi-Pap 40 09/11/15 02:05 97 40 09/11/15 00:00 96.3 99 24 108/67 97 09/11/15 00:00 Bi-Pap 40 09/10/15 20:00 T-Piece 40 09/10/15 20:00 96.7 92 24 108/69 100 09/10/15 20:00 96 I/O 09/10/15 09/10/15 09/10/15 09/11/15 09/11/15 09/11/15 07:00 15:00 23:00 07:00 15:00 23:00 Intake Total 1988 ml 1549 ml 856 ml Output Total 50 ml 850 ml 25 ml 275 ml 163.0 ml Balance 1938 ml -850 ml 1524 ml 581 ml -163.0 ml Intake Oral 0 ml Tube Feeding 1388 ml 599 ml 506 ml Tube Irrigant 50 ml 50 ml Other 600 ml 900 ml 300 ml Output Urine Total 50 ml 850 ml 25 ml 275 ml 3 ml Tube Feeding Residual Discard 160.0 ml # Bowel Movements 1 1 1 1 3 Result Diagram: 09/08/15 0323 09/10/15 0707 Objective Remarks This is a thin white male who is Awake but no response to commands,with a trach tube in place. HEENT: Pupils are equal and reactive to light. Trach in neck. CHEST:Decreased breath sounds with Basal crackles. CARDIOVASCULAR: S1 and S2 is normal. ABDOMEN: Soft, nondistended. BS +. He has a PEG tube in place. EXTREMITIES: No edema.muscle wasting. ulcer over sacrum. NEURO: Lethargic and Does not move his extremities .Reflexes not elicited. Assessment and Plan Assessment and Plan IMPRESSION 1. Respiratory failure, resolving 2. Sepsis, resolving. 3. UTI 4. Tracheobronchitis 5. Parkinson's disease 6. Dementia. 7. Severe Deconditioning. 8. Left Pneumothorax. Resolved. Plan : 1. Cont Bipap 5/15, FIO2 30 % at HS 11 PM to 6 am. 2. Nebs qid , duoneb. 3. Cont Tube feeds at 60 CC 4. Cont T Bar daytime at FIo2 40 % for 18 hrs if tolerating. 5. Transfer to rehab . 6. Cont Trach toilet and lavage. 8. Cont Lovenox 40 Mg S/Q daily. Darren Kiser MD Sep 11, 2015 19:00
[2015-09-11] MEDS: OLANZapine 5 MG TAB GT SCH (22:24)
[2015-09-11] MEDS: ENOXAPARIN SODIUM 40 MG/0.4 ML SYRINGE SQ SCH (22:25)
[2015-09-12] VITALS (10 sets, daily range): BP systolic 101–121; BP diastolic 60–81; PULSE 74–96; RESP 18–26; TEMP 96.4–98.4; O2SAT 93–99
[2015-09-12] MEDS: clonazePAM 1 MG TAB PO SCH ×3 (06:39→21:46)
[2015-09-12] MEDS: FREE WATER G-TUBE SCH ×3 (06:39→21:26)
[2015-09-12] MEDS: CARBIDOPA/LEVODOPA 25 MG/100 MG TAB GT SCH ×3 (06:39→21:46)
--- NOTE | 2015-09-12 09:22 | HHI.PR ---
Subjective Remarks 54 y/o male [facility] resident with advanced Parkinson's disease ; dementia; tracheostomy and PEG tube . Patient is Bedbound status and Unable to communicate 09/09/15-patient seen and examined; unable to communicate. Does not follow commands. Tachypneic and currently afebrile 09/10/15-patient seen and examined; nonverbal and does not follow command. Tachypneic and stable 09/11/15-patient seen and examined; nonverbal and no change. 09/12/15-patient seen and examined. Nonverbal and does not follow command. vitals stable and no longer evidence of tachypnea. Objective Vitals Vital Signs Date Time Temp Pulse Resp B/P Pulse Ox O2 Delivery O2 Flow Rate FiO2 09/12/15 08:31 97 T-piece 5.00 40 09/12/15 08:00 97.8 92 24 102/63 93 09/12/15 04:21 98 40 09/12/15 04:00 97.4 75 24 109/72 99 09/12/15 02:10 98 40 09/12/15 00:00 97.7 84 24 103/60 99 09/11/15 23:58 98 30 09/11/15 20:15 97 T-piece 6.00 35 09/11/15 20:00 96 Trach Collar 6.00 Humidified 09/11/15 20:00 96.8 80 24 142/91 96 09/11/15 19:57 94 09/11/15 16:00 96.4 83 29 106/69 94 09/11/15 15:00 6.00 09/11/15 12:00 96.4 90 32 110/64 98 09/11/15 09:30 6.00 I/O 09/11/15 09/11/15 09/11/15 09/12/15 09/12/15 09/12/15 07:00 15:00 23:00 07:00 15:00 23:00 Intake Total 856 ml 691 ml 720 ml Output Total 275 ml 163.0 ml 400 ml 200 ml Balance 581 ml -163.0 ml 291 ml 520 ml Intake Oral 0 ml 0 ml 0 ml Tube Feeding 506 ml 391 ml 420 ml Tube Irrigant 50 ml 300 ml 300 ml Other 300 ml Output Urine Total 275 ml 3 ml 400 ml 200 ml Stool Total 0 ml Tube Feeding Residual Discard 160.0 ml # Voids 1 # Bowel Movements 1 3 0 Result Diagram: 09/08/15 0323 09/10/15 0707 Objective Remarks GENERAL: NAD and unable to communicate-trachea in place SKIN: Warm and dry. HEAD: Normocephalic. EYES: No scleral icterus. No injection or drainage. NECK: Supple, trachea midline. No JVD or lymphadenopathy. CARDIOVASCULAR: Regular rate and rhythm without murmurs, gallops, or rubs. RESPIRATORY: No accessory muscle use. GASTROINTESTINAL: Abdomen soft, non-tender, nondistended. MUSCULOSKELETAL: No cyanosis, or edema. BACK: Nontender without obvious deformity. No CVA tenderness. 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 No acute intracranial findings. - Continue Sinemet 25/100 q8 via PEG, Seroquel 50 mg twice a day, olanzapine 5 mg a night, Klonopin 2 mg every 8 hours, Paxil 20 daily and Neurontin 300 mg twice a day. - Continue Lortab when necessary pain and fentanyl patch 50 g every 3 days for pain management. Fentanyl bolus prn breakthrough pain or if needed for turning/ nursing care/etc. Acute on chronic respiratory failure Chronic trach #8 Shiley distal XLT. Appreciate pulmonology consult. S/p treatment for PNA. Right pneumothorax status post pigtail catheter 2 (resolved) . Continues to have secretions. - On Tpiece at 35% 15 hours during day and PSV using Bipap 15/5 at 35% at night from 10 PM to 7 AM per pulmonology. Pulm toilet, trach care, Bronchodilators ( DuoNeb) every 6 hours. History of orthostasis: On midodrine 5 mg twice a day Malnutrition: Status post PEG.Tolerating Jevity 1.5 at 60 cc an hour per nutrition recommendations. Currently Prevacid 30 mg per PEG tube daily for GERD. Hypernatremia Stable. free water 300 ml every 8 hours. Sepsis/ PNA/ UTI ID was consulted. ESBL klebsiella and cele tropicalis in urine cx. ESBL positive Klebsiella/Pseudomonas pneumonia. Stenotrophomonas in sputum 08/17. MRSA colonization. Watching off abx per ID: Diflucan 08/17-08/26 . Levaquin --08/26 for Stenotrophomonas. Completed course of meropenem for 08/11-08/20 for Klebsiella ESBL/pseudomonas pneumonia. S/p tobramycin as well. Bilateral lower extremity contractures/ Stage III sacral decubitus present on admission - Wound care evaluate and treat. Currently on Santyl daily with wet-to-dry changes. Continue physical therapy. GI - Prevacid DVT - SCDs/ Lovenox Continue with current treatment Néstor Linn MD Sep 12, 2015 09:22
[2015-09-12] MEDS: CHLORHEXIDINE 0.12% (ORAL KIT) 15 ML CUP MT SCH (11:34)
[2015-09-12] MEDS: REMOVE OLD PATCH TD SCH (11:34)
[2015-09-12] MEDS: PARoxetine HCL 20 MG TAB G-TUBE SCH (11:35)
[2015-09-12] MEDS: ARTIFICIAL TEARS OPTH SOLN 15 ML BTL EACH EYE SCH ×3 (11:35→17:32)
[2015-09-12] MEDS: MIDODRINE 5 MG TAB G-TUBE SCH ×2 (11:35→21:25)
[2015-09-12] MEDS: QUEtiapine FUMARATE 25 MG TAB G-TUBE SCH ×2 (11:35→21:25)
[2015-09-12] MEDS: GABAPENTIN 300 MG CAP G-TUBE SCH ×2 (11:35→21:25)
[2015-09-12] MEDS: LANSOPRAZOLE SOLUTAB 30 MG TAB NG SCH (11:36)
[2015-09-12] MEDS: SODIUM CHLORIDE 0.9% FLUSH 5 ML FLUSH IVF SCH ×2 (11:36→21:25)
[2015-09-12] MEDS: LACTOBACILLUS ACIDOPHILUS TAB PO SCH ×3 (11:36→17:32)
[2015-09-12] MEDS: fentaNYL 50 MCG/HR PATCH TD SCH (11:36)
[2015-09-12] MEDS: COLLAGENASE OINT 30 GM TUBE TOP SCH (11:37)
--- NOTE | 2015-09-12 19:27 | HHI.PR ---
Subjective Remarks Tachypneic On a T Bar Fio2 35 % . On CPAP at HS. Thick secretions in trach Neuro status same..On tube feeds. Waiting for placement. Objective Vital Signs Date Time Temp Pulse Resp B/P Pulse Ox O2 Delivery O2 Flow Rate FiO2 09/12/15 16:00 96.7 78 26 115/68 97 09/12/15 15:41 98 21 09/12/15 12:40 18 09/12/15 11:48 98.4 96 26 101/62 96 09/12/15 08:31 97 T-piece 5.00 40 09/12/15 08:00 97.8 92 24 102/63 93 09/12/15 04:21 98 40 09/12/15 04:00 97.4 75 24 109/72 99 09/12/15 02:10 98 40 09/12/15 00:00 97.7 84 24 103/60 99 09/11/15 23:58 98 30 09/11/15 20:15 97 T-piece 6.00 35 09/11/15 20:00 96 Trach Collar 6.00 Humidified 09/11/15 20:00 96.8 80 24 142/91 96 09/11/15 19:57 94 I/O 09/11/15 09/11/15 09/11/15 09/12/15 09/12/15 09/12/15 07:00 15:00 23:00 07:00 15:00 23:00 Intake Total 856 ml 691 ml 720 ml 600 ml Output Total 275 ml 163.0 ml 400 ml 200 ml Balance 581 ml -163.0 ml 291 ml 520 ml 600 ml Intake Oral 0 ml 0 ml 0 ml 600 ml Tube Feeding 506 ml 391 ml 420 ml Tube Irrigant 50 ml 300 ml 300 ml Other 300 ml Output Urine Total 275 ml 3 ml 400 ml 200 ml Stool Total 0 ml Tube Feeding Residual Discard 160.0 ml # Voids 1 # Bowel Movements 1 3 0 1 Result Diagram: 09/08/15 0323 09/10/15 0707 Objective Remarks This is a thin white male who is Awake and no response to commands,with a trach tube in place. HEENT: Pupils are equal and reactive to light. Trach in neck. CHEST:Decreased breath sounds with Basal crackles. CARDIOVASCULAR: S1 and S2 is normal. ABDOMEN: Soft, nondistended. BS +. He has a PEG tube in place. EXTREMITIES: No edema.muscle wasting. ulcer over sacrum. NEURO: Lethargic and Does not move his extremities .Reflexes not elicited. Assessment and Plan Assessment and Plan IMPRESSION 1. Respiratory failure, resolving 2. Sepsis, resolving. 3. UTI 4. Tracheobronchitis 5. Parkinson's disease 6. Dementia. 7. Severe Deconditioning. 8. Left Pneumothorax. Resolved. Plan : 1. Cont Bipap 5/15, FIO2 30 % at HS 11 PM to 6 am. 2. Nebs qid , duoneb. 3. Cont Tube feeds at 60 CC 4. Cont T Bar daytime at FIo2 35 % for 18 hrs if tolerating. 5. Transfer to rehab . 6. Cont Trach toilet and lavage. 8. Labs in am. Darren Kiser MD Sep 12, 2015 19:27
[2015-09-12] MEDS: OLANZapine 5 MG TAB GT SCH (21:25)
[2015-09-12] MEDS: HYOSCYAMINE SOLN 0.125 MG/ML 15 ML BTL PO PRN (21:25)
[2015-09-12] MEDS: ENOXAPARIN SODIUM 40 MG/0.4 ML SYRINGE SQ SCH (21:46)
[2015-09-12 22:22] LABS: BICARBONATE 39.9 MEQ/L (21.0-32.0); POTASSIUM 4.7 MEQ/L (3.5-5.1)
[2015-09-13] VITALS (9 sets, daily range): BP systolic 101–129; BP diastolic 64–82; PULSE 69–104; RESP 18–25; TEMP 96.2–99.7; O2SAT 85–100
[2015-09-13] MEDS: clonazePAM 1 MG TAB PO SCH ×3 (05:44→22:23)
[2015-09-13] MEDS: CARBIDOPA/LEVODOPA 25 MG/100 MG TAB GT SCH ×3 (05:44→22:23)
[2015-09-13] MEDS: FREE WATER G-TUBE SCH ×3 (05:44→22:00)
[2015-09-13] MEDS: LORazepam 2 MG/ML VIAL IVP PRN (07:02)
[2015-09-13] MEDS: CHLORHEXIDINE 0.12% (ORAL KIT) 15 ML CUP MT SCH ×2 (08:00→12:27)
[2015-09-13] MEDS: RESP: ALBUTEROL 2.5 MG/3 ML NEB (PRN) NEB (08:07)
--- NOTE | 2015-09-13 08:17 | HHI.PR ---
Subjective Remarks 54 y/o male [facility] resident with advanced Parkinson's disease ; dementia; tracheostomy and PEG tube . Patient is Bedbound status and Unable to communicate 09/09/15-patient seen and examined; unable to communicate. Does not follow commands. Tachypneic and currently afebrile 09/10/15-patient seen and examined; nonverbal and does not follow command. Tachypneic and stable 09/11/15-patient seen and examined; nonverbal and no change. 09/12/15-patient seen and examined. Nonverbal and does not follow command. vitals stable and no longer evidence of tachypnea. 09/13/15-patient seen and examined, nonverbal with episode of sustained tachypnea however currently afebrile. Objective Vitals Vital Signs Date Time Temp Pulse Resp B/P Pulse Ox O2 Delivery O2 Flow Rate FiO2 09/13/15 04:15 98 40 09/13/15 04:00 96.2 77 18 106/64 99 09/13/15 04:00 Bi-Pap Trach Collar Humidified 09/13/15 00:00 99 40 09/13/15 00:00 97.3 97 18 105/76 99 09/13/15 00:00 Bi-Pap Trach Collar 09/12/15 20:06 97 Trach Collar 6.00 Humidified 09/12/15 20:00 90 09/12/15 20:00 96.4 74 18 121/81 93 09/12/15 20:00 Trach Collar 6.00 28 T-Piece Humidified 09/12/15 16:00 96.7 78 26 115/68 97 09/12/15 15:41 98 21 09/12/15 12:40 18 09/12/15 12:00 97 Trach Collar 6.00 Humidified 09/12/15 11:48 98.4 96 26 101/62 96 09/12/15 08:31 97 T-piece 5.00 40 I/O 09/12/15 09/12/15 09/12/15 09/13/15 09/13/15 09/13/15 06:59 14:59 22:59 06:59 14:59 22:59 Intake Total 720 ml 600 ml 1243 ml 902 ml Output Total 200 ml Balance 520 ml 600 ml 1243 ml 902 ml Intake Oral 0 ml 600 ml Tube Feeding 420 ml 883 ml 542 ml Tube Irrigant 300 ml 60 ml 60 ml Other 300 ml 300 ml Output Urine Total 200 ml Stool Total 0 ml # Bowel Movements 1 Result Diagram: 09/12/152004 Objective Remarks GENERAL: NAD and unable to communicate-trachea in place SKIN: Warm and dry. HEAD: Normocephalic. EYES: No scleral icterus. No injection or drainage. NECK: Supple, trachea midline. No JVD or lymphadenopathy. CARDIOVASCULAR: Regular rate and rhythm without murmurs, gallops, or rubs. RESPIRATORY: Tachypneic, positive use of accessory muscle use. GASTROINTESTINAL: Abdomen soft, non-tender, nondistended. MUSCULOSKELETAL: No cyanosis, or edema. BACK: Nontender without obvious deformity. No CVA tenderness. 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 No acute intracranial findings. - Continue Sinemet 25/100 q8 via PEG, Seroquel 50 mg twice a day, olanzapine 5 mg a night, Klonopin 2 mg every 8 hours, Paxil 20 daily and Neurontin 300 mg twice a day. - Continue Lortab when necessary pain and fentanyl patch 50 g every 3 days for pain management. Fentanyl bolus prn breakthrough pain or if needed for turning/ nursing care/etc. Acute on chronic respiratory failure Chronic trach #8 Shiley distal XLT. Appreciate pulmonology consult. S/p treatment for PNA. Right pneumothorax status post pigtail catheter 2 (resolved) . Continues to have secretions. - On Tpiece at 35% 15 hours during day and PSV using Bipap 15/5 at 35% at night from 10 PM to 7 AM per pulmonology. Aggressive Pulm toilet, trach care, Bronchodilators ( DuoNeb) every 6 hours. -Repeat chest x-ray the same secondary to sustained tachypnea History of orthostasis: On midodrine 5 mg twice a day Malnutrition: Status post PEG.Tolerating Jevity 1.5 @ 60 cc/hour . Currently Prevacid 30 mg per PEG tube daily for GERD. Hypernatremia Stable. free water 300 ml every 8 hours. Sepsis/ PNA/ UTI ID was consulted. ESBL klebsiella and cele tropicalis in urine cx. ESBL positive Klebsiella/Pseudomonas pneumonia. Stenotrophomonas in sputum 08/17. MRSA colonization. Watching off abx per ID: Diflucan 08/17-08/26 . Levaquin --08/26 for Stenotrophomonas. Completed course of meropenem for 08/11-08/20 for Klebsiella ESBL/pseudomonas pneumonia. S/p tobramycin as well. Bilateral lower extremity contractures/ Stage III sacral decubitus present on admission - Wound care evaluate and treat. Currently on Santyl daily with wet-to-dry changes. Continue physical therapy. GI - Prevacid DVT - SCDs/ Lovenox Continue with current treatment Néstor Linn MD Sep 13, 2015 08:17
--- NOTE | 2015-09-13 09:16 | RADRPT ---
EXAM DATE/TIME: 09/13/2015 08:41 [place] COMPARISON: CT THORAX W/O CONTRAST, July 11, 2015, 9:49. CHEST SINGLE AP, September 11, 2015, 5:55. INDICATIONS : Evaluate for infiltrate MEDICAL HISTORY : Hypertension. Gastroesophageal reflux disease. Diabetes mellitus type II SURGICAL HISTORY : Tracheostomy. ENCOUNTER: Subsequent ACUITY: 3 months PAIN SCORE: Non-responsive. LOCATION: Bilateral chest FINDINGS: A tracheostomy tube has its tip 2 cm above the kalie. The heart and mediastinal structures are norm al. The pulmonary vascular pattern is also normal. The lungs are clear. Chronic interstitial snyder es are noted bilaterally. CONCLUSION: 1. Tracheostomy tube has its tip 2 cm above the kalie. 2. No acute focal pulmonary infiltrate or pulmonary vascular congestion. 3. Chronic interstitial changes bilaterally. Blair Hill MD on September 13, 2015 at 9:09 Board Certified Radiologist. This report was verified electronically.
[2015-09-13 09:41] LABS: POTASSIUM 4.5 MEQ/L (3.5-5.1)
[2015-09-13] MEDS: ARTIFICIAL TEARS OPTH SOLN 15 ML BTL EACH EYE SCH ×3 (12:27→17:37)
[2015-09-13] MEDS: GABAPENTIN 300 MG CAP G-TUBE SCH ×2 (12:27→22:22)
[2015-09-13] MEDS: SODIUM CHLORIDE 0.9% FLUSH 5 ML FLUSH IVF SCH ×2 (12:28→22:24)
[2015-09-13] MEDS: LANSOPRAZOLE SOLUTAB 30 MG TAB NG SCH (12:28)
[2015-09-13] MEDS: QUEtiapine FUMARATE 25 MG TAB G-TUBE SCH ×2 (12:28→22:23)
[2015-09-13] MEDS: MIDODRINE 5 MG TAB G-TUBE SCH ×2 (12:28→22:22)
[2015-09-13] MEDS: PARoxetine HCL 20 MG TAB G-TUBE SCH (12:28)
[2015-09-13] MEDS: LACTOBACILLUS ACIDOPHILUS TAB PO SCH ×3 (12:29→17:38)
[2015-09-13] MEDS: COLLAGENASE OINT 30 GM TUBE TOP SCH (12:29)
--- NOTE | 2015-09-13 16:21 | HHI.PR ---
Subjective Remarks Tachypneic On a T Bar Fio2 35 % . On CPAP at HS. Copious secretions in trach Neuro status same..On tube feeds. No fever. Objective Vital Signs Date Time Temp Pulse Resp B/P Pulse Ox O2 Delivery O2 Flow Rate FiO2 09/13/15 12:40 99.7 104 24 104/73 93 09/13/15 11:58 94 Trach Collar 6.00 Humidified 09/13/15 09:24 97.4 95 25 103/74 94 09/13/15 08:14 85 T-piece 40 09/13/15 08:14 98 40 09/13/15 04:15 98 40 09/13/15 04:00 96.2 77 18 106/64 99 09/13/15 04:00 Bi-Pap Trach Collar Humidified 09/13/15 00:00 99 40 09/13/15 00:00 97.3 97 18 105/76 99 09/13/15 00:00 Bi-Pap Trach Collar 09/12/15 20:06 97 Trach Collar 6.00 Humidified 09/12/15 20:00 90 09/12/15 20:00 96.4 74 18 121/81 93 09/12/15 20:00 Trach Collar 6.00 28 T-Piece Humidified I/O 09/12/15 09/12/15 09/12/15 09/13/15 09/13/15 09/13/15 07:00 15:00 23:00 07:00 15:00 23:00 Intake Total 720 ml 600 ml 1243 ml 902 ml Output Total 200 ml Balance 520 ml 600 ml 1243 ml 902 ml Intake Oral 0 ml 600 ml Tube Feeding 420 ml 883 ml 542 ml Tube Irrigant 300 ml 60 ml 60 ml Other 300 ml 300 ml Output Urine Total 200 ml Stool Total 0 ml # Bowel Movements 1 Result Diagram: 09/13/15 0840 Objective Remarks This is a thin white male who is unresponsive ,with a trach tube in place. HEENT: Pupils are equal and reactive to light. CHEST:Decreased breath sounds with Basal crackles. CARDIOVASCULAR: S1 and S2 is normal. ABDOMEN: Soft, nondistended. BS +. He has a PEG tube in place. EXTREMITIES: No edema.muscle wasting. ulcer over sacrum. NEURO: Lethargic and Does not move his extremities .Reflexes not elicited. Assessment and Plan Assessment and Plan IMPRESSION 1. Respiratory failure, resolving 2. Sepsis, resolving. 3. UTI 4. Tracheobronchitis 5. Parkinson's disease 6. Dementia. 7. Severe Deconditioning. 8. Left Pneumothorax. Resolved. Plan : 1. Cont Bipap 06/20, FIO2 30 % at HS 11 PM to 6 am. 2. Nebs qid , duoneb. 3. Cont Tube feeds at 60 CC 4. Cont T collar daytime at FIo2 35 % for 18 hrs if tolerating. 5. Add Levaquin 500 mgm IV daily. 6. Cont Trach toilet and lavage. 8. Chest X ray. Culture from trach. Darren Kiser MD Sep 13, 2015 16:21
[2015-09-13] MEDS: LEVOFLOXACIN 500 MG PREMIX INJ 100 ML IV SCH (17:37)
[2015-09-13] MEDS ORDERED: CEFEPIME INJ 1,000 MG in SODIUM CHLORIDE 0.9% INJ 100 ML IV SCH (18:00)
[2015-09-13] MEDS: OLANZapine 5 MG TAB GT SCH (22:22)
[2015-09-13] MEDS: ENOXAPARIN SODIUM 40 MG/0.4 ML SYRINGE SQ SCH (22:23)
[2015-09-13] MEDS: HYOSCYAMINE SOLN 0.125 MG/ML 15 ML BTL PO PRN (22:24)
[2015-09-14] VITALS (10 sets, daily range): BP systolic 93–121; BP diastolic 55–73; PULSE 88–97; RESP 18–28; TEMP 97–99.5; O2SAT 93–100
[2015-09-14] MEDS: clonazePAM 1 MG TAB PO SCH ×3 (05:34→21:50)
[2015-09-14] MEDS: FREE WATER G-TUBE SCH ×3 (05:34→21:50)
[2015-09-14] MEDS: CARBIDOPA/LEVODOPA 25 MG/100 MG TAB GT SCH ×3 (05:34→21:49)
[2015-09-14] MEDS: CHLORHEXIDINE 0.12% (ORAL KIT) 15 ML CUP MT SCH ×3 (08:00→20:00)
[2015-09-14] MEDS: GABAPENTIN 300 MG CAP G-TUBE SCH ×2 (09:00→21:50)
--- NOTE | 2015-09-14 10:40 | HHI.PR ---
Subjective Remarks 54 y/o male [facility] long term resident with advanced Parkinson's disease ; dementia; tracheostomy and PEG tube . Patient is Bedbound status and Unable to communicate 09/09/15-patient seen and examined; unable to communicate. Does not follow commands. Tachypneic and currently afebrile 09/10/15-patient seen and examined; nonverbal and does not follow command. Tachypneic and stable 09/11/15-patient seen and examined; nonverbal and no change. 09/12/15-patient seen and examined. Nonverbal and does not follow command. vitals stable and no longer evidence of tachypnea. 09/13/15-patient seen and examined, nonverbal with episode of sustained tachypnea however currently afebrile. 09/14/15-patient seen and examined; nonverbal and does not follow command.Patient with copious secretion in trach. Currently afebrile and no longer with episode of tachypnea Objective Vitals Vital Signs Date Time Temp Pulse Resp B/P Pulse Ox O2 Delivery O2 Flow Rate FiO2 09/14/15 08:00 97.9 88 24 93/56 100 09/14/15 04:29 98 50 09/14/15 04:00 99.5 88 18 107/58 97 09/14/15 00:23 98 50 09/14/15 00:23 95 50 09/14/15 00:00 Bi-Pap Trach Collar 09/14/15 00:00 97.5 97 18 95/55 99 09/13/15 22:44 98 40 09/13/15 22:44 98 BiPAP 40 09/13/15 22:30 Bi-Pap Trach Collar 09/13/15 20:00 80 09/13/15 20:00 96.7 78 18 129/82 100 09/13/15 20:00 Trach Collar 6.00 40 Humidified 09/13/15 18:03 98.4 69 22 101/69 100 09/13/15 15:00 94 Trach Collar 6.00 Humidified 09/13/15 12:40 99.7 104 24 104/73 93 09/13/15 11:58 94 Trach Collar 6.00 Humidified I/O 09/13/15 09/13/15 09/13/15 09/14/15 09/14/15 09/14/15 07:00 15:00 23:00 07:00 15:00 23:00 Intake Total 902 ml 2861 ml 0 ml Output Total 800 ml Balance 902 ml 2061 ml 0 ml Intake Oral 0 ml 0 ml 0 ml Tube Feeding 542 ml 2201 ml Tube Irrigant 60 ml 60 ml Other 300 ml 600 ml Output Urine Total 800 ml # Voids 1 1 # Bowel Movements 0 1 0 Result Diagram: 09/13/15 0840 Imaging Last Impressions Chest X-Ray 09/13/15 0000 Signed Impressions: Service Date/Time: Sunday, September 13, 2015 08:41 - CONCLUSION: 1. Tracheostomy tube has its tip 2 cm above the kalie. 2. No acute focal pulmonary infiltrate or pulmonary vascular congestion. 3. Chronic interstitial changes bilaterally. Blair Hill MD Tunnelled Chest Tube Removal 08/05/15 1100 Signed Impressions: Service Date/Time: Wednesday, August 05, 2015 11:00 - CONCLUSION: Uncomplicated chest tube removal. Blaine Jackson MD Chest Tube Change 07/31/15 0000 Signed Impressions: Service Date/Time: Friday, July 31, 2015 14:34 - CONCLUSION: Uncomplicated reposition of previously placed chest tube as above. Blaine Jackson MD Chest Tube Insertion 07/30/15 0000 Signed Impressions: Service Date/Time: July 14:50 - CONCLUSION: Uncomplicated chest tube placement as above. Blaine Jackson MD Catheter Change 07/27/15 0000 Signed Impressions: Service Date/Time: Monday, July 27, 2015 14:43 - CONCLUSION: Uncomplicated gastrostomy tube exchange as above. Blaine Jackson MD Chest CT 07/11/15 0000 Signed Impressions: Service Date/Time: Saturday, July 11, 2015 09:49 - CONCLUSION: Scattered patchy densities significantly improved from previous study. Tiny anterior right basilar pneumothorax. Right-sided chest tube in good position. Néstor Matamoros MD Head CT 06/18/151902 Signed Impressions: Service Date/Time: June 19:31 - CONCLUSION: Diffuse atrophy unchanged. No acute intracranial findings. Kush Briscoe MD Abdomen/Pelvis CT 06/18/151902 Signed Impressions: Service Date/Time: June 19:36 - CONCLUSION: 1. Chronic nonspecific urinary bladder wall thickening. Bladder collapsed with Putnam catheter in place. 2. Chronic bilateral mid to lower lung zone groundglass opacity. 3. Nonobstructing left renal calculus. 4. Distended rectum. Kush Briscoe MD Objective Remarks GENERAL: NAD and unable to communicate-trachea in place SKIN: Warm and dry. HEAD: Normocephalic. EYES: No scleral icterus. No injection or drainage. NECK: Supple, trachea midline. No JVD or lymphadenopathy. CARDIOVASCULAR: Regular rate and rhythm without murmurs, gallops, or rubs. RESPIRATORY: Tachypneic, positive use of accessory muscle use. GASTROINTESTINAL: Abdomen soft, non-tender, nondistended. MUSCULOSKELETAL: No cyanosis, or edema. BACK: Nontender without obvious deformity. No CVA tenderness. 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 No acute intracranial findings. - Continue Sinemet 25/100 q8 via PEG, Seroquel 50 mg twice a day, olanzapine 5 mg a night, Klonopin 2 mg every 8 hours, Paxil 20 daily and Neurontin 300 mg twice a day. - Continue Lortab when necessary pain and fentanyl patch 50 g every 3 days for pain management. Fentanyl bolus prn breakthrough pain or if needed for turning/ nursing care/etc. Acute on chronic respiratory failure Chronic trach #8 Shiley distal XLT. Appreciate pulmonology consult. S/p treatment for PNA. Right pneumothorax status post pigtail catheter 2 (resolved) . Continues to have secretions. - On Tpiece at 35% and PSV using Bipap 15/5 at 35%. Aggressive Pulm toilet, trach care, Bronchodilators ( DuoNeb) every 6 hours. Chest x-ray 09/13/15 note dated and reviewed by me without any evidence of No acute focal pulmonary infiltrate or pulmonary vascular congestion History of orthostasis: On midodrine 5 mg twice a day Malnutrition: Status post PEG.Tolerating Jevity 1.5 @ 60 cc/hour . Currently Prevacid 30 mg per PEG tube daily for GERD. Hypernatremia Stable. free water 300 ml every 8 hours. Sepsis/ PNA/ UTI ID was consulted. ESBL klebsiella and cele tropicalis in urine cx. ESBL positive Klebsiella/Pseudomonas pneumonia. Stenotrophomonas in sputum 08/17. MRSA colonization. Watching off abx per ID: Diflucan 08/17-08/26 . Levaquin --08/26 for Stenotrophomonas. Completed course of meropenem for 08/11-08/20 for Klebsiella ESBL/pseudomonas pneumonia. S/p tobramycin as well. Bilateral lower extremity contractures/ Stage III sacral decubitus present on admission - Wound care evaluate and treat. Currently on Santyl daily with wet-to-dry changes. Continue physical therapy. GI - Prevacid DVT - SCDs/ Lovenox Continue with current treatment Néstor Linn MD Sep 14, 2015 10:39
[2015-09-14] MEDS: RESP: ALBUTEROL 2.5 MG/3 ML NEB (PRN) NEB (11:26)
[2015-09-14] MEDS: MIDODRINE 5 MG TAB G-TUBE SCH ×2 (14:26→21:50)
[2015-09-14] MEDS: ARTIFICIAL TEARS OPTH SOLN 15 ML BTL EACH EYE SCH ×3 (14:26→18:01)
[2015-09-14] MEDS: PARoxetine HCL 20 MG TAB G-TUBE SCH (14:26)
[2015-09-14] MEDS: QUEtiapine FUMARATE 25 MG TAB G-TUBE SCH ×2 (14:26→21:49)
[2015-09-14] MEDS: SODIUM CHLORIDE 0.9% FLUSH 5 ML FLUSH IVF SCH ×2 (14:27→21:50)
[2015-09-14] MEDS: COLLAGENASE OINT 30 GM TUBE TOP SCH (14:27)
[2015-09-14] MEDS: LANSOPRAZOLE SOLUTAB 30 MG TAB NG SCH (14:27)
[2015-09-14] MEDS: LACTOBACILLUS ACIDOPHILUS TAB PO SCH ×3 (14:27→18:01)
[2015-09-14] MEDS: LEVOFLOXACIN 500 MG PREMIX INJ 100 ML IV SCH (18:01)
--- NOTE | 2015-09-14 19:39 | HHI.PR ---
Subjective Remarks Less Tachypneic On a T collar Fio2 35 % . On CPAP at HS. Less secretions in trach Neuro status same..On tube feeds. No fever. Objective Vital Signs Date Time Temp Pulse Resp B/P Pulse Ox O2 Delivery O2 Flow Rate FiO2 09/14/15 16:00 97.0 89 24 95/59 93 09/14/15 12:00 97.5 89 28 101/73 100 09/14/15 11:40 98 Trach Collar 50 09/14/15 08:00 97.9 88 24 93/56 100 09/14/15 04:29 98 50 09/14/15 04:00 99.5 88 18 107/58 97 09/14/15 00:23 98 50 09/14/15 00:23 95 50 09/14/15 00:00 Bi-Pap Trach Collar 09/14/15 00:00 97.5 97 18 95/55 99 09/13/15 22:44 98 40 09/13/15 22:44 98 BiPAP 40 09/13/15 22:30 Bi-Pap Trach Collar 09/13/15 20:00 80 09/13/15 20:00 96.7 78 18 129/82 100 09/13/15 20:00 Trach Collar 6.00 40 Humidified I/O 09/13/15 09/13/15 09/13/15 09/14/15 09/14/15 09/14/15 07:00 15:00 23:00 07:00 15:00 23:00 Intake Total 902 ml 2861 ml 0 ml 0 ml Output Total 800 ml 450 ml Balance 902 ml 2061 ml 0 ml -450 ml Intake Oral 0 ml 0 ml 0 ml 0 ml Tube Feeding 542 ml 2201 ml Tube Irrigant 60 ml 60 ml Other 300 ml 600 ml Output Urine Total 800 ml 450 ml # Voids 1 1 # Bowel Movements 0 1 0 1 Result Diagram: 09/13/15 0840 Objective Remarks This is a thin white male who is unresponsive ,with a trach tube in place.On O2 via T Collar HEENT: Pupils are equal and reactive to light. CHEST:Decreased breath sounds with Basal crackles. CARDIOVASCULAR: S1 and S2 is normal. ABDOMEN: Soft, nondistended. BS +. He has a PEG tube in place. EXTREMITIES: No edema.muscle wasting. ulcer over sacrum. NEURO: Lethargic and Does not move his extremities .Reflexes not elicited. Assessment and Plan Assessment and Plan IMPRESSION 1. Respiratory failure, resolving 2. Sepsis, resolving. 3. UTI 4. Tracheobronchitis 5. Parkinson's disease 6. Dementia. 7. Severe Deconditioning. 8. Left Pneumothorax. Resolved. Plan : 1. Cont Bipap 06/20, FIO2 30 % at HS 11 PM to 6 am. 2. Nebs qid , duoneb. 3. Cont Tube feeds at 60 CC 4. Cont T collar daytime at FIo2 45 % for 18 hrs if tolerating. 5. Add Levaquin 500 mgm IV daily. 6. Cont Trach toilet and lavage. 8. CBC in am Darren Kiser MD Sep 14, 2015 19:39
[2015-09-14] MEDS: ENOXAPARIN SODIUM 40 MG/0.4 ML SYRINGE SQ SCH (21:49)
[2015-09-14] MEDS: OLANZapine 5 MG TAB GT SCH (21:49)
[2015-09-15] VITALS (10 sets, daily range): BP systolic 90–110; BP diastolic 52–70; PULSE 88–104; RESP 16–24; TEMP 96.1–100.5; O2SAT 88–100
[2015-09-15] MEDS: ACETAMINOPHEN 650 MG/20.3 ML UDC TUBE PRN (02:35)
[2015-09-15 05:45] LABS: AUTOMATED NEUTROPHIL # 7.1 TH/MM3 (1.8-7.7); BASOPHIL % 0.5 % (0.0-2.0); EOSINOPHIL # 0.8 TH/MM3 (0-0.4); HEMATOCRIT 28.9 % (39.0-51.0); HEMO FLAGS DIFF FINAL; LYMPH % 11.9 % (9.0-44.0); LYMPHOCYTE # 1.2 TH/MM3 (1.0-4.8); MEAN CELL VOLUME 86.7 FL (80.0-100.0); MEAN CORPUSCULAR HEMOGLOBIN 26.1 PG (27.0-34.0); MEAN CORPUSCULAR HGB CONC 30.1 % (32.0-36.0); MONO % 8.6 % (0.0-8.0); PLATELET COUNT 163 TH/MM3 (150-450); RED BLOOD COUNT 3.33 MIL/MM3 (4.50-5.90); RED CELL DISTRIBUTION WIDTH 14.9 % (11.6-17.2)
[2015-09-15] MEDS: FREE WATER G-TUBE SCH ×3 (06:00→21:21)
[2015-09-15] MEDS: clonazePAM 1 MG TAB PO SCH ×3 (06:37→21:21)
[2015-09-15] MEDS: CARBIDOPA/LEVODOPA 25 MG/100 MG TAB GT SCH ×3 (06:37→21:21)
[2015-09-15] MEDS: CHLORHEXIDINE 0.12% (ORAL KIT) 15 ML CUP MT SCH ×2 (08:00→20:00)
[2015-09-15] MEDS: REMOVE OLD PATCH TD SCH (08:00)
[2015-09-15] MEDS: MIDODRINE 5 MG TAB G-TUBE SCH ×2 (09:05→21:21)
[2015-09-15] MEDS: LANSOPRAZOLE SOLUTAB 30 MG TAB NG SCH (09:05)
[2015-09-15] MEDS: PARoxetine HCL 20 MG TAB G-TUBE SCH (09:05)
[2015-09-15] MEDS: LACTOBACILLUS ACIDOPHILUS TAB PO SCH ×3 (09:06→18:34)
[2015-09-15] MEDS: QUEtiapine FUMARATE 25 MG TAB G-TUBE SCH ×2 (09:06→21:21)
[2015-09-15] MEDS: GABAPENTIN 300 MG CAP G-TUBE SCH ×2 (09:06→21:21)
[2015-09-15] MEDS: fentaNYL 50 MCG/HR PATCH TD SCH (09:08)
[2015-09-15] MEDS: ARTIFICIAL TEARS OPTH SOLN 15 ML BTL EACH EYE SCH ×3 (09:15→18:00)
[2015-09-15] MEDS: SODIUM CHLORIDE 0.9% FLUSH 5 ML FLUSH IVF SCH ×2 (09:30→21:17)
[2015-09-15] MEDS: COLLAGENASE OINT 30 GM TUBE TOP SCH (10:00)
--- NOTE | 2015-09-15 10:49 | HHI.PR ---
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 Patient is Bedbound status and Unable to communicate 09/09/15-patient seen and examined; unable to communicate. Does not follow commands. Tachypneic and currently afebrile 09/10/15-patient seen and examined; nonverbal and does not follow command. Tachypneic and stable 09/11/15-patient seen and examined; nonverbal and no change. 09/12/15-patient seen and examined. Nonverbal and does not follow command. vitals stable and no longer evidence of tachypnea. 09/13/15-patient seen and examined, nonverbal with episode of sustained tachypnea however currently afebrile. 09/14/15-patient seen and examined; nonverbal and does not follow command.Patient with copious secretion in trach. Currently afebrile and no longer with episode of tachypnea 09/15/15-patient seen and examined; Afebrile and less secretion from trach. Nonverbal and does not follow command Objective Vitals Vital Signs Date Time Temp Pulse Resp B/P Pulse Ox O2 Delivery O2 Flow Rate FiO2 09/15/15 09:25 94 BiPAP 50 09/15/15 09:23 94 50 09/15/15 09:00 Bi-Pap Trach Collar 09/15/15 08:00 97.3 91 20 108/65 100 09/15/15 05:29 97 50 09/15/15 04:00 98.0 98 22 94/52 88 09/15/15 00:17 98 50 09/15/15 00:00 100.5 101 24 90/60 97 09/14/15 21:17 94 50 09/14/15 20:00 98.9 92 24 121/61 95 09/14/15 20:00 94 09/14/15 20:00 Trach Collar 40 09/14/15 16:00 97.0 89 24 95/59 93 09/14/15 12:00 97.5 89 28 101/73 100 09/14/15 11:40 98 Trach Collar 50 I/O 09/14/15 09/14/15 09/14/15 09/15/15 09/15/15 09/15/15 07:00 15:00 23:00 07:00 15:00 23:00 Intake Total 0 ml 0 ml 480 ml 0 ml Output Total 450 ml 200 ml 300 ml Balance 0 ml -450 ml 280 ml -300 ml Intake Oral 0 ml 0 ml 0 ml 0 ml IV Total 480 ml Output Urine Total 450 ml 200 ml 300 ml # Voids 1 # Bowel Movements 0 1 1 Result Diagram: 09/15/15 0500 09/13/15 0840 Objective Remarks GENERAL: NAD and unable to communicate-trachea in place SKIN: Warm and dry. HEAD: Normocephalic. EYES: No scleral icterus. No injection or drainage. NECK: Supple, trachea midline. No JVD or lymphadenopathy. CARDIOVASCULAR: Regular rate and rhythm without murmurs, gallops, or rubs. RESPIRATORY: Tachypneic, positive use of accessory muscle use. GASTROINTESTINAL: Abdomen soft, non-tender, nondistended. MUSCULOSKELETAL: No cyanosis, or edema. BACK: Nontender without obvious deformity. No CVA tenderness. 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 No acute intracranial findings. - Continue Sinemet 25/100 q8 via PEG, Seroquel 50 mg twice a day, olanzapine 5 mg a night, Klonopin 2 mg every 8 hours, Paxil 20 daily and Neurontin 300 mg twice a day. - Continue Lortab when necessary pain and fentanyl patch 50 g every 3 days for pain management. Fentanyl bolus prn breakthrough pain or if needed for turning/ nursing care/etc. Acute on chronic respiratory failure Chronic trach #8 Shiley distal XLT. Appreciate pulmonology consult. S/p treatment for PNA. Right pneumothorax status post pigtail catheter 2 (resolved) . Continues to have secretions. - On Tpiece at 35% and PSV using Bipap 15/5 at 35%. Aggressive Pulm toilet, trach care, Bronchodilators ( DuoNeb) every 6 hours. Chest x-ray 09/13/15 note dated and reviewed by me without any evidence of No acute focal pulmonary infiltrate or pulmonary vascular congestion History of orthostasis: On midodrine 5 mg twice a day Malnutrition: Status post PEG.Tolerating Jevity 1.5 @ 60 cc/hour . Currently Prevacid 30 mg per PEG tube daily for GERD. Hypernatremia-resolved Stable. free water 300 ml every 8 hours. Sepsis/ PNA/ UTI ID was consulted. ESBL klebsiella and cele tropicalis in urine cx. ESBL positive Klebsiella/Pseudomonas pneumonia. Stenotrophomonas in sputum 08/17. MRSA colonization. Watching off abx per ID: Diflucan 08/17-08/26 . Levaquin --08/26 for Stenotrophomonas. Completed course of meropenem for 08/11-08/20 for Klebsiella ESBL/pseudomonas pneumonia. S/p tobramycin as well. Bilateral lower extremity contractures/ Stage III sacral decubitus present on admission - Wound care evaluate and treat. Currently on Santyl daily with wet-to-dry changes. Continue physical therapy. GI - Prevacid DVT - SCDs/ Lovenox Continue with current treatment Néstor Linn MD Sep 15, 2015 10:49
[2015-09-15] MEDS: LEVOFLOXACIN 500 MG PREMIX INJ 100 ML IV SCH (18:34)
--- NOTE | 2015-09-15 18:38 | HHI.PR ---
Subjective Remarks Back on Bipap FIo2 40 %. Thick secretions in trach Neuro status same..On tube feeds. No fever. CXR only shows chronic changes. Objective Vital Signs Date Time Temp Pulse Resp B/P Pulse Ox O2 Delivery O2 Flow Rate FiO2 09/15/15 16:00 96.1 88 20 110/66 97 09/15/15 12:00 97.2 96 20 106/70 97 09/15/15 09:25 94 BiPAP 50 09/15/15 09:23 94 50 09/15/15 09:00 Bi-Pap Trach Collar 09/15/15 08:00 97.3 91 20 108/65 100 09/15/15 05:29 97 50 09/15/15 04:00 98.0 98 22 94/52 88 09/15/15 00:17 98 50 09/15/15 00:00 100.5 101 24 90/60 97 09/14/15 21:17 94 50 09/14/15 20:00 98.9 92 24 121/61 95 09/14/15 20:00 94 09/14/15 20:00 Trach Collar 40 I/O 09/14/15 09/14/15 09/14/15 09/15/15 09/15/15 09/15/15 07:00 15:00 23:00 07:00 15:00 23:00 Intake Total 0 ml 0 ml 480 ml 0 ml Output Total 450 ml 200 ml 300 ml Balance 0 ml -450 ml 280 ml -300 ml Intake Oral 0 ml 0 ml 0 ml 0 ml IV Total 480 ml Output Urine Total 450 ml 200 ml 300 ml # Voids 1 # Bowel Movements 0 1 1 Result Diagram: 09/15/15 0500 09/13/15 0840 Objective Remarks This is a thin white male who is unresponsive ,with a trach tube in place. HEENT: Pupils are equal and reactive to light. CHEST:Decreased breath sounds with Basal crackles.Wheezes bilateral. CARDIOVASCULAR: S1 and S2 is normal. ABDOMEN: Soft, nondistended. BS +. He has a PEG tube in place. EXTREMITIES: No edema.muscle wasting. ulcer over sacrum. NEURO: Lethargic and Does not move his extremities .Reflexes not elicited. Assessment and Plan Assessment and Plan IMPRESSION 1. Respiratory failure, resolving 2. Sepsis, resolving. 3. UTI 4. Tracheobronchitis 5. Parkinson's disease 6. Dementia. 7. Severe Deconditioning. 8. Left Pneumothorax. Resolved. Plan : 1. Cont Bipap 06/20, FIO2 40 % . 2. Nebs qid , duoneb. 3. Cont Tube feeds at 60 CC 4. Cont T collar daytime at FIo2 45 % for 3 hrs daily. 5. Levaquin 500 mgm IV daily. 6. Cont Trach toilet and lavage. 8. BMP in am. Darren Kiser MD Sep 15, 2015 18:38
[2015-09-15] MEDS: OLANZapine 5 MG TAB GT SCH (21:21)
[2015-09-15] MEDS: ENOXAPARIN SODIUM 40 MG/0.4 ML SYRINGE SQ SCH (21:21)
[2015-09-15] MEDS: HYOSCYAMINE SOLN 0.125 MG/ML 15 ML BTL PO PRN (21:22)
[2015-09-16] VITALS (11 sets, daily range): BP systolic 92–105; BP diastolic 56–76; PULSE 75–90; RESP 16–22; TEMP 97.1–99.2; O2SAT 95–100
[2015-09-16] MEDS: CARBIDOPA/LEVODOPA 25 MG/100 MG TAB GT SCH ×3 (05:52→22:47)
[2015-09-16] MEDS: clonazePAM 1 MG TAB PO SCH ×3 (05:52→22:47)
[2015-09-16] MEDS: FREE WATER G-TUBE SCH ×3 (05:52→22:48)
[2015-09-16 07:32] LABS: BICARBONATE 43.9 MEQ/L (21.0-32.0); POTASSIUM 4.2 MEQ/L (3.5-5.1)
[2015-09-16] MEDS: CHLORHEXIDINE 0.12% (ORAL KIT) 15 ML CUP MT SCH ×2 (08:00→22:46)
[2015-09-16] MEDS: SODIUM CHLORIDE 0.9% FLUSH 5 ML FLUSH IVF SCH ×2 (09:30→22:48)
[2015-09-16] MEDS: ARTIFICIAL TEARS OPTH SOLN 15 ML BTL EACH EYE SCH ×3 (09:30→18:57)
--- NOTE | 2015-09-16 10:03 | HHI.PR ---
Subjective Remarks 54 y/o male nursing home senior living resident with advanced Parkinson's disease ; dementia; tracheostomy and PEG tube . Patient is Bedbound status and Unable to communicate 09/09/15-patient seen and examined; unable to communicate. Does not follow commands. Tachypneic and currently afebrile 09/10/15-patient seen and examined; nonverbal and does not follow command. Tachypneic and stable 09/11/15-patient seen and examined; nonverbal and no change. 09/12/15-patient seen and examined. Nonverbal and does not follow command. vitals stable and no longer evidence of tachypnea. 09/13/15-patient seen and examined, nonverbal with episode of sustained tachypnea however currently afebrile. 09/14/15-patient seen and examined; nonverbal and does not follow command.Patient with copious secretion in trach. Currently afebrile and no longer with episode of tachypnea 09/15/15-patient seen and examined; Afebrile and less secretion from trach. Nonverbal and does not follow command 09/16/15-patient seen and examined; no acute event overnight. Pulse oxy this AM 98%; trach with some secretions Objective Vitals Vital Signs Date Time Temp Pulse Resp B/P Pulse Ox O2 Delivery O2 Flow Rate FiO2 09/16/15 08:32 98 T-piece 6.00 70 09/16/15 08:00 97.3 90 18 104/69 98 09/16/15 04:00 97.1 83 16 93/68 100 09/16/15 03:15 98 50 09/16/15 00:30 98 50 09/16/15 00:00 98.2 84 19 92/63 96 09/16/15 00:00 96 Bi-Pap 40 Trach Collar 09/15/15 20:00 98.7 104 16 96/58 96 09/15/15 20:00 93 09/15/15 19:45 97 Bi-Pap 40 Trach Collar 09/15/15 16:00 Bi-Pap Trach Collar 09/15/15 16:00 96.1 88 20 110/66 97 09/15/15 14:00 Bi-Pap Trach Collar 09/15/15 12:00 97.2 96 20 106/70 97 I/O 8/9/16 8/9/09/15/15 09/16/15 09/16/15 09/16/15 07:00 15:00 23:00 07:00 15:00 23:00 Intake Total 0 ml 0 ml 625 ml 1181 ml Output Total 300 ml 450 ml 400 ml 350 ml Balance -300 ml -450 ml 225 ml 831 ml Intake Oral 0 ml 0 ml 0 ml 0 ml IV Total 210 ml Tube Feeding 415 ml 581 ml Other 600 ml Output Urine Total 300 ml 450 ml 400 ml 350 ml # Bowel Movements 1 1 1 1 Result Diagram: 09/15/15 0500 09/16/15 0619 Objective Remarks GENERAL: NAD and unable to communicate-trachea in place SKIN: Warm and dry. HEAD: Normocephalic. EYES: No scleral icterus. No injection or drainage. NECK: Supple, trachea midline. No JVD or lymphadenopathy. CARDIOVASCULAR: Regular rate and rhythm without murmurs, gallops, or rubs. RESPIRATORY: Tachypneic, positive use of accessory muscle use. GASTROINTESTINAL: Abdomen soft, non-tender, nondistended. MUSCULOSKELETAL: No cyanosis, or edema. BACK: Nontender without obvious deformity. No CVA tenderness. 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 No acute intracranial findings. - Continue Sinemet 25/100 q8 via PEG, Seroquel 50 mg twice a day, olanzapine 5 mg a night, Klonopin 2 mg every 8 hours, Paxil 20 daily and Neurontin 300 mg twice a day. - Continue Lortab when necessary pain and fentanyl patch 50 g every 3 days for pain management. Fentanyl bolus prn breakthrough pain or if needed for turning/ nursing care/etc. Acute on chronic respiratory failure Chronic trach #8 Shiley distal XLT. Appreciate pulmonology consult. S/p treatment for PNA. Right pneumothorax status post pigtail catheter 2 (resolved) . Continues to have secretions. - On Tpiece at 35% and PSV using Bipap 15/5 at 35%. Aggressive Pulm toilet, trach care, Bronchodilators ( DuoNeb) every 6 hours. Chest x-ray 09/13/15 note dated and reviewed by me without any evidence of No acute focal pulmonary infiltrate or pulmonary vascular congestion History of orthostasis: On midodrine 5 mg twice a day Malnutrition: Status post PEG.Tolerating Jevity 1.5 @ 60 cc/hour . Currently Prevacid 30 mg per PEG tube daily for GERD. Hypernatremia-resolved Stable. free water 300 ml every 8 hours. Sepsis/ PNA/ UTI ID was consulted. ESBL klebsiella and cele tropicalis in urine cx. ESBL positive Klebsiella/Pseudomonas pneumonia. Stenotrophomonas in sputum 08/17. MRSA colonization. Watching off abx per ID: Diflucan 08/17-08/26 . Levaquin --08/26 for Stenotrophomonas. Completed course of meropenem for 08/11-08/20 for Klebsiella ESBL/pseudomonas pneumonia. S/p tobramycin as well. Bilateral lower extremity contractures/ Stage III sacral decubitus present on admission - Wound care evaluate and treat. Currently on Santyl daily with wet-to-dry changes. Continue physical therapy. GI - Prevacid DVT - SCDs/ Lovenox Continue with current treatment Néstor Linn MD Sep 16, 2015 10:03
[2015-09-16] MEDS: MIDODRINE 5 MG TAB G-TUBE SCH ×2 (10:30→22:47)
[2015-09-16] MEDS: GABAPENTIN 300 MG CAP G-TUBE SCH ×2 (10:30→22:47)
[2015-09-16] MEDS: LACTOBACILLUS ACIDOPHILUS TAB PO SCH ×3 (10:30→18:00)
[2015-09-16] MEDS: QUEtiapine FUMARATE 25 MG TAB G-TUBE SCH ×2 (10:30→22:47)
[2015-09-16] MEDS: COLLAGENASE OINT 30 GM TUBE TOP SCH (10:30)
[2015-09-16] MEDS: PARoxetine HCL 20 MG TAB G-TUBE SCH (10:30)
[2015-09-16] MEDS: LANSOPRAZOLE SOLUTAB 30 MG TAB NG SCH (10:30)
[2015-09-16] MEDS: LEVOFLOXACIN 500 MG PREMIX INJ 100 ML IV SCH (18:57)
--- NOTE | 2015-09-16 19:50 | HHI.PR ---
Subjective Remarks On a T collar today, FIo2 40 %. few secretions in trach. Good output. Neuro status same..On tube feeds. CXR only shows chronic changes. Objective Vital Signs Date Time Temp Pulse Resp B/P Pulse Ox O2 Delivery O2 Flow Rate FiO2 09/16/15 16:00 98.5 83 18 105/76 98 09/16/15 12:00 97.5 75 18 99/58 97 09/16/15 10:55 96 Trach Collar 6.00 T-Piece Humidified 09/16/15 08:32 98 T-piece 6.00 70 09/16/15 08:00 85 09/16/15 08:00 97.3 90 18 104/69 98 09/16/15 04:00 97.1 83 16 93/68 100 09/16/15 03:15 98 50 09/16/15 00:30 98 50 09/16/15 00:00 98.2 84 19 92/63 96 09/16/15 00:00 96 Bi-Pap 40 Trach Collar 09/15/15 20:00 98.7 104 16 96/58 96 09/15/15 20:00 93 I/O 09/15/15 09/15/15 09/15/15 09/16/15 09/16/15 09/16/15 07:00 15:00 23:00 07:00 15:00 23:00 Intake Total 0 ml 0 ml 625 ml 1181 ml 960 ml Output Total 300 ml 450 ml 400 ml 350 ml 750 ml Balance -300 ml -450 ml 225 ml 831 ml 210 ml Intake Oral 0 ml 0 ml 0 ml 0 ml 960 ml IV Total 210 ml Tube Feeding 415 ml 581 ml Other 600 ml Output Urine Total 300 ml 450 ml 400 ml 350 ml 750 ml # Bowel Movements 1 1 1 1 1 Result Diagram: 09/15/15 0500 09/16/15 0619 Objective Remarks This is a thin white male who is unresponsive ,with a trach tube in place. HEENT: Pupils are equal and reactive to light. CHEST:Decreased breath sounds with few Basal crackles.Wheezes bilateral. CARDIOVASCULAR: S1 and S2 is normal. ABDOMEN: Soft, nondistended. BS +. He has a PEG tube in place. EXTREMITIES: No edema.muscle wasting. ulcer over sacrum. NEURO: Lethargic and Does not move his extremities .Reflexes not elicited. Assessment and Plan Assessment and Plan IMPRESSION 1. Respiratory failure, resolving 2. Sepsis, resolving. 3. UTI 4. Tracheobronchitis 5. Parkinson's disease 6. Dementia. 7. Severe Deconditioning. 8. Left Pneumothorax. Resolved. Plan : 1. Cont Bipap 06/20, FIO2 40 % from 8 pm to 8 am. 2. Nebs qid , duoneb. 3. Cont Tube feeds at 60 CC 4. Cont T collar daytime at FIo2 35 % for 12 hrs daily. 5. Levaquin 500 mgm IV daily X 7 days. 6. Cont Trach toilet and lavage. 8. CBC in am Darren Kiser MD Sep 16, 2015 19:50
[2015-09-16] MEDS: ENOXAPARIN SODIUM 40 MG/0.4 ML SYRINGE SQ SCH (22:46)
[2015-09-16] MEDS: OLANZapine 5 MG TAB GT SCH (22:47)
[2015-09-17] VITALS (10 sets, daily range): BP systolic 92–123; BP diastolic 57–78; PULSE 83–104; RESP 18–22; TEMP 96.9–100.4; O2SAT 93–99
[2015-09-17] MEDS: clonazePAM 1 MG TAB PO SCH ×3 (05:39→23:26)
[2015-09-17] MEDS: CARBIDOPA/LEVODOPA 25 MG/100 MG TAB GT SCH ×3 (05:39→23:24)
[2015-09-17] MEDS: FREE WATER G-TUBE SCH ×3 (05:40→23:25)
--- NOTE | 2015-09-17 08:41 | HHI.PR ---
Subjective Remarks 54 y/o male [facility] resident with advanced Parkinson's disease ; dementia; tracheostomy and PEG tube . Patient is Bedbound status and Unable to communicate 09/09/15-patient seen and examined; unable to communicate. Does not follow commands. Tachypneic and currently afebrile 09/10/15-patient seen and examined; nonverbal and does not follow command. Tachypneic and stable 09/11/15-patient seen and examined; nonverbal and no change. 09/12/15-patient seen and examined. Nonverbal and does not follow command. vitals stable and no longer evidence of tachypnea. 09/13/15-patient seen and examined, nonverbal with episode of sustained tachypnea however currently afebrile. 09/14/15-patient seen and examined; nonverbal and does not follow command.Patient with copious secretion in trach. Currently afebrile and no longer with episode of tachypnea 09/15/15-patient seen and examined; Afebrile and less secretion from trach. Nonverbal and does not follow command 09/16/15-patient seen and examined; no acute event overnight. Pulse oxy this AM 98%; trach with some secretions 09/17/15-patient seen and examined; currently on BiPAP. Afebrile positive for tachypnea. Nonverbal and does not follow command. Case discussed with RN. Objective Vitals Vital Signs Date Time Temp Pulse Resp B/P Pulse Ox O2 Delivery O2 Flow Rate FiO2 09/17/15 05:45 96 50 09/17/15 04:00 97.0 83 22 96/64 99 09/17/15 00:00 98.9 88 20 92/57 96 09/16/15 21:00 95 35 09/16/15 20:00 99.2 86 22 97/56 97 09/16/15 20:00 Bi-Pap 40 Trach Collar 09/16/15 19:00 98 T-piece 6.00 50 09/16/15 16:00 98.5 83 18 105/76 98 09/16/15 12:00 97.5 75 18 99/58 97 09/16/15 10:55 96 Trach Collar 6.00 T-Piece Humidified I/O 09/16/15 09/16/15 09/16/15 09/17/15 09/17/15 09/17/15 07:00 15:00 23:00 07:00 15:00 23:00 Intake Total 1181 ml 960 ml 0 ml 0 ml Output Total 350 ml 750 ml 400 ml 300 ml Balance 831 ml 210 ml -400 ml -300 ml Intake Oral 0 ml 960 ml 0 ml 0 ml Tube Feeding 581 ml Other 600 ml Output Urine Total 350 ml 750 ml 400 ml 300 ml # Bowel Movements 1 1 0 0 Result Diagram: 09/15/15 0500 09/16/15 0619 Objective Remarks GENERAL: NAD and unable to communicate-trachea in place SKIN: Warm and dry. HEAD: Normocephalic. EYES: No scleral icterus. No injection or drainage. NECK: Supple, trachea midline. No JVD or lymphadenopathy. CARDIOVASCULAR: Regular rate and rhythm without murmurs, gallops, or rubs. RESPIRATORY: Tachypneic, positive use of accessory muscle use. GASTROINTESTINAL: Abdomen soft, non-tender, nondistended. MUSCULOSKELETAL: No cyanosis, or edema. BACK: Nontender without obvious deformity. No CVA tenderness. 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 No acute intracranial findings. - Continue Sinemet 25/100 q8 via PEG, Seroquel 50 mg twice a day, olanzapine 5 mg a night, Klonopin 2 mg every 8 hours, Paxil 20 daily and Neurontin 300 mg twice a day. - Continue Lortab when necessary pain and fentanyl patch 50 g every 3 days for pain management. Fentanyl bolus prn breakthrough pain or if needed for turning/ nursing care/etc. Acute on chronic respiratory failure Chronic trach #8 Shiley distal XLT. Appreciate pulmonology consult. S/p treatment for PNA. Right pneumothorax status post pigtail catheter 2 (resolved) . - On Tpiece at 35% in the a.m. and PSV using Bipap 15/5 at 35% at night. Aggressive Pulm toilet, trach care, Bronchodilators ( DuoNeb) every 6 hours. History of orthostasis: On midodrine 5 mg twice a day Malnutrition: Status post PEG.Tolerating Jevity 1.5 @ 60 cc/hour . Currently Prevacid 30 mg per PEG tube daily for GERD. Hypernatremia-resolved Stable. free water 300 ml every 8 hours. Sepsis/ PNA/ UTI ID was consulted. ESBL klebsiella and cele tropicalis in urine cx. ESBL positive Klebsiella/Pseudomonas pneumonia. Stenotrophomonas in sputum 08/17. MRSA colonization. Watching off abx per ID: Diflucan 08/17-08/26 . Levaquin --08/26 for Stenotrophomonas. Completed course of meropenem for 08/11-08/20 for Klebsiella ESBL/pseudomonas pneumonia. S/p tobramycin as well. Bilateral lower extremity contractures/ Stage III sacral decubitus present on admission - Wound care evaluate and treat. Currently on Santyl daily with wet-to-dry changes. Continue physical therapy. GI - Prevacid DVT - SCDs/ Lovenox Continue with current treatment Néstor Linn MD Sep 17, 2015 08:41
[2015-09-17] MEDS: CHLORHEXIDINE 0.12% (ORAL KIT) 15 ML CUP MT SCH ×2 (11:58→23:26)
[2015-09-17] MEDS: PARoxetine HCL 20 MG TAB G-TUBE SCH (11:58)
[2015-09-17] MEDS: GABAPENTIN 300 MG CAP G-TUBE SCH ×2 (11:58→23:23)
[2015-09-17] MEDS: MIDODRINE 5 MG TAB G-TUBE SCH ×2 (11:58→23:24)
[2015-09-17] MEDS: QUEtiapine FUMARATE 25 MG TAB G-TUBE SCH ×2 (11:58→23:24)
[2015-09-17] MEDS: LACTOBACILLUS ACIDOPHILUS TAB PO SCH ×3 (11:58→17:19)
[2015-09-17] MEDS: LANSOPRAZOLE SOLUTAB 30 MG TAB NG SCH (11:58)
[2015-09-17] MEDS: SODIUM CHLORIDE 0.9% FLUSH 5 ML FLUSH IVF SCH ×2 (11:59→23:24)
[2015-09-17] MEDS: COLLAGENASE OINT 30 GM TUBE TOP SCH (11:59)
[2015-09-17] MEDS: ARTIFICIAL TEARS OPTH SOLN 15 ML BTL EACH EYE SCH ×3 (11:59→17:19)
[2015-09-17] MEDS: LEVOFLOXACIN 500 MG PREMIX INJ 100 ML IV SCH (17:19)
[2015-09-17] MEDS: OLANZapine 5 MG TAB GT SCH (23:24)
[2015-09-17] MEDS: ENOXAPARIN SODIUM 40 MG/0.4 ML SYRINGE SQ SCH (23:25)
[2015-09-18] VITALS (8 sets, daily range): BP systolic 96–123; BP diastolic 64–73; PULSE 85–97; RESP 20; TEMP 96.3–99; O2SAT 90–98
[2015-09-18] MEDS: clonazePAM 1 MG TAB PO SCH ×3 (06:19→22:08)
[2015-09-18] MEDS: CARBIDOPA/LEVODOPA 25 MG/100 MG TAB GT SCH ×3 (06:19→22:09)
[2015-09-18] MEDS: FREE WATER G-TUBE SCH ×3 (06:20→22:00)
--- NOTE | 2015-09-18 10:37 | HHI.PR ---
Subjective Remarks 54 [facility] male [facility] with advanced Parkinson's disease ; dementia; tracheostomy and PEG tube . Patient is Bedbound status and Unable to communicate 09/09/15-patient seen and examined; unable to communicate. Does not follow commands. Tachypneic and currently afebrile 09/10/15-patient seen and examined; nonverbal and does not follow command. Tachypneic and stable 09/11/15-patient seen and examined; nonverbal and no change. 09/12/15-patient seen and examined. Nonverbal and does not follow command. vitals stable and no longer evidence of tachypnea. 09/13/15-patient seen and examined, nonverbal with episode of sustained tachypnea however currently afebrile. 09/14/15-patient seen and examined; nonverbal and does not follow command.Patient with copious secretion in trach. Currently afebrile and no longer with episode of tachypnea 09/15/15-patient seen and examined; Afebrile and less secretion from trach. Nonverbal and does not follow command 09/16/15-patient seen and examined; no acute event overnight. Pulse oxy this AM 98%; trach with some secretions 09/17/15-patient seen and examined; currently on BiPAP. Afebrile positive for tachypnea. Nonverbal and does not follow command. Case discussed with RN. 09/18/15-patient seen and examined; nonverbal and does not follow command. No change. Case discussed with RN. Objective Vitals Vital Signs Date Time Temp Pulse Resp B/P Pulse Ox O2 Delivery O2 Flow Rate FiO2 09/18/15 08:00 99.0 85 20 123/73 95 09/18/15 06:05 90 Nasal Cannula 6.00 50 09/18/15 04:00 93 Trach Collar 09/18/15 00:00 93 Trach Collar 09/18/15 00:00 98.3 88 20 110/73 93 09/17/15 22:03 94 T-piece 6.00 50 09/17/15 20:00 85 09/17/15 20:00 93 Trach Collar 09/17/15 20:00 96.9 86 21 98/63 94 09/17/15 18:50 93 Trach Collar 09/17/15 16:00 97.8 89 18 95/57 95 09/17/15 12:45 95 T-piece 50 09/17/15 12:15 93 09/17/15 12:15 93 T-piece 50 09/17/15 12:00 98.6 93 18 102/67 95 I/O 09/17/15 09/17/15 09/17/15 09/18/15 09/18/15 09/18/15 06:59 14:59 22:59 06:59 14:59 22:59 Intake Total 0 ml 0 ml Output Total 300 ml 400 ml 450 ml Balance -300 ml -400 ml -450 ml Intake Oral 0 ml 0 ml Output Urine Total 300 ml 400 ml 450 ml # Bowel Movements 0 1 1 Result Diagram: 09/15/15 0500 09/16/15 0619 Objective Remarks GENERAL: NAD and unable to communicate-trachea in place SKIN: Warm and dry. HEAD: Normocephalic. EYES: No scleral icterus. No injection or drainage. NECK: Supple, trachea midline. No JVD or lymphadenopathy. CARDIOVASCULAR: Regular rate and rhythm without murmurs, gallops, or rubs. RESPIRATORY: Tachypneic, positive use of accessory muscle use. GASTROINTESTINAL: Abdomen soft, non-tender, nondistended. MUSCULOSKELETAL: No cyanosis, or edema. BACK: Nontender without obvious deformity. No CVA tenderness. 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 No acute intracranial findings. - Continue Sinemet 25/100 q8 via PEG, Seroquel 50 mg twice a day, olanzapine 5 mg a night, Klonopin 2 mg every 8 hours, Paxil 20 daily and Neurontin 300 mg twice a day. - Continue Lortab when necessary pain and fentanyl patch 50 g every 3 days for pain management. Fentanyl bolus prn breakthrough pain or if needed for turning/ nursing care/etc. Acute on chronic respiratory failure Chronic trach #8 Shiley distal XLT. Appreciate pulmonology consult. S/p treatment for PNA. Right pneumothorax status post pigtail catheter 2 (resolved) . - On Tpiece at 35% in the a.m. and PSV using Bipap 15/5 at 35% at night. Aggressive Pulmonary toilet, trach care, Bronchodilators ( DuoNeb) every 6 hours. History of orthostasis: On midodrine 5 mg twice a day Malnutrition: Status post PEG.Tolerating Jevity 1.5 @ 60 cc/hour . Currently Prevacid 30 mg per PEG tube daily for GERD. Hypernatremia-resolved Stable. free water 300 ml every 8 hours. Sepsis/ PNA/ UTI ID was consulted. ESBL klebsiella and cele tropicalis in urine cx. ESBL positive Klebsiella/Pseudomonas pneumonia. Stenotrophomonas in sputum 08/17. MRSA colonization. Watching off abx per ID: Diflucan 08/17-08/26 . Levaquin --08/26 for Stenotrophomonas. Completed course of meropenem for 08/11-08/20 for Klebsiella ESBL/pseudomonas pneumonia. S/p tobramycin as well. Bilateral lower extremity contractures/ Stage III sacral decubitus present on admission - Wound care evaluate and treat. Currently on Santyl daily with wet-to-dry changes. Continue physical therapy. GI - Prevacid DVT - SCDs/ Lovenox Continue with current treatment Néstor Linn MD Sep 18, 2015 10:37
[2015-09-18] MEDS: ARTIFICIAL TEARS OPTH SOLN 15 ML BTL EACH EYE SCH ×3 (11:39→17:39)
[2015-09-18] MEDS: PARoxetine HCL 20 MG TAB G-TUBE SCH (11:39)
[2015-09-18] MEDS: CHLORHEXIDINE 0.12% (ORAL KIT) 15 ML CUP MT SCH (11:39)
[2015-09-18] MEDS: GABAPENTIN 300 MG CAP G-TUBE SCH ×2 (11:39→22:08)
[2015-09-18] MEDS: REMOVE OLD PATCH TD SCH (11:39)
[2015-09-18] MEDS: MIDODRINE 5 MG TAB G-TUBE SCH ×2 (11:40→22:08)
[2015-09-18] MEDS: LANSOPRAZOLE SOLUTAB 30 MG TAB NG SCH (11:40)
[2015-09-18] MEDS: QUEtiapine FUMARATE 25 MG TAB G-TUBE SCH ×2 (11:40→22:08)
[2015-09-18] MEDS: SODIUM CHLORIDE 0.9% FLUSH 5 ML FLUSH IVF SCH ×2 (11:40→22:09)
[2015-09-18] MEDS: fentaNYL 50 MCG/HR PATCH TD SCH (11:41)
[2015-09-18] MEDS: LACTOBACILLUS ACIDOPHILUS TAB PO SCH ×3 (11:41→17:39)
[2015-09-18] MEDS: COLLAGENASE OINT 30 GM TUBE TOP SCH (11:42)
[2015-09-18] MEDS: RESP: ALBUTEROL 2.5 MG/3 ML NEB (PRN) NEB (13:49)
[2015-09-18] MEDS: LEVOFLOXACIN 500 MG PREMIX INJ 100 ML IV SCH (17:39)
--- NOTE | 2015-09-18 19:13 | HHI.PR ---
Subjective Remarks On a T collar today, FIo2 30 %. few secretions in trach. On IV antibiotic. Neuro status same..On tube feeds. CXR only shows chronic changes. Objective Vital Signs Date Time Temp Pulse Resp B/P Pulse Ox O2 Delivery O2 Flow Rate FiO2 09/18/15 16:00 97.6 97 20 96/64 97 09/18/15 13:49 95 09/18/15 13:49 95 Trach Collar 70 09/18/15 13:07 26 09/18/15 12:00 96.3 90 20 108/66 94 09/18/15 08:00 99.0 85 20 123/73 95 09/18/15 06:05 90 Nasal Cannula 6.00 50 09/18/15 04:00 93 Trach Collar 09/18/15 00:00 93 Trach Collar 09/18/15 00:00 98.3 88 20 110/73 93 09/17/15 22:03 94 T-piece 6.00 50 09/17/15 20:00 85 09/17/15 20:00 93 Trach Collar 09/17/15 20:00 96.9 86 21 98/63 94 I/O 09/17/15 09/17/15 09/17/15 09/18/15 09/18/15 09/18/15 07:00 15:00 23:00 07:00 15:00 23:00 Intake Total 0 ml 0 ml Output Total 300 ml 400 ml 450 ml Balance -300 ml -400 ml -450 ml Intake Oral 0 ml 0 ml Output Urine Total 300 ml 400 ml 450 ml # Voids 3 # Bowel Movements 0 1 1 2 Result Diagram: 09/15/15 0500 09/16/15 0619 Objective Remarks This is a thin white male who is unresponsive ,with a trach tube in place. HEENT: Pupils are equal and reactive to light. CHEST:Decreased breath sounds with few Basal crackles and Wheezes bilateral. CARDIOVASCULAR: S1 and S2 is normal. ABDOMEN: Soft, nondistended. BS +. He has a PEG tube in place. EXTREMITIES: No edema.muscle wasting. ulcer over sacrum. NEURO: Lethargic and Does not move his extremities .Reflexes not elicited. Assessment and Plan Assessment and Plan IMPRESSION 1. Respiratory failure, resolving 2. Sepsis, resolving. 3. UTI 4. Tracheobronchitis 5. Parkinson's disease 6. Dementia. 7. Severe Deconditioning. 8. Left Pneumothorax. Resolved. Plan : 1. Cont Bipap 06/20, FIO2 40 % from 8 pm to 8 am. 2. Nebs qid , duoneb. 3. Cont Tube feeds at 60 CC 4. Cont T collar daytime at FIo2 50 % for 12 hrs daily. 5. Levaquin 500 mgm IV daily X 7 days. 6. Cont Trach toilet and lavage. 8. Transfer to Home. Darren Kiser MD Sep 18, 2015 19:13
[2015-09-18] MEDS: ENOXAPARIN SODIUM 40 MG/0.4 ML SYRINGE SQ SCH (22:08)
[2015-09-18] MEDS: OLANZapine 5 MG TAB GT SCH (22:09)
[2015-09-19] VITALS (14 sets, daily range): BP systolic 107–128; BP diastolic 66–79; PULSE 66–94; RESP 18–22; TEMP 95.8–100.1; O2SAT 93–99
[2015-09-19] MEDS: HYOSCYAMINE SOLN 0.125 MG/ML 15 ML BTL PO PRN ×4 (01:43→23:40)
[2015-09-19] MEDS: ACETAMINOPHEN 650 MG/20.3 ML UDC TUBE PRN ×2 (01:43→23:40)
[2015-09-19] MEDS: clonazePAM 1 MG TAB PO SCH ×3 (05:31→22:26)
[2015-09-19] MEDS: CARBIDOPA/LEVODOPA 25 MG/100 MG TAB GT SCH ×3 (05:31→22:26)
[2015-09-19] MEDS: FREE WATER G-TUBE SCH ×3 (05:31→22:30)
[2015-09-19] MEDS: CHLORHEXIDINE 0.12% (ORAL KIT) 15 ML CUP MT SCH ×2 (08:00→22:29)
--- NOTE | 2015-09-19 08:40 | HHI.PR ---
Subjective Remarks 54 y/o male [facility]-way al[facility] resident with advanced Parkinson's disease ; dementia; tracheostomy and PEG tube . Patient is Bedbound status and Unable to communicate 09/09/15-patient seen and examined; unable to communicate. Does not follow commands. Tachypneic and currently afebrile 09/10/15-patient seen and examined; nonverbal and does not follow command. Tachypneic and stable 09/11/15-patient seen and examined; nonverbal and no change. 09/12/15-patient seen and examined. Nonverbal and does not follow command. vitals stable and no longer evidence of tachypnea. 09/13/15-patient seen and examined, nonverbal with episode of sustained tachypnea however currently afebrile. 09/14/15-patient seen and examined; nonverbal and does not follow command.Patient with copious secretion in trach. Currently afebrile and no longer with episode of tachypnea 09/15/15-patient seen and examined; Afebrile and less secretion from trach. Nonverbal and does not follow command 09/16/15-patient seen and examined; no acute event overnight. Pulse oxy this AM 98%; trach with some secretions 09/17/15-patient seen and examined; currently on BiPAP. Afebrile positive for tachypnea. Nonverbal and does not follow command. Case discussed with RN. 09/18/15-patient seen and examined; nonverbal and does not follow command. No change. Case discussed with RN. 09/19/15-patient seen and examined; no acute event overnight. Currently on T piece. Was on BIPAP last night as scheduled. Nonverbal and does not follow command. Objective Vitals Vital Signs Date Time Temp Pulse Resp B/P Pulse Ox O2 Delivery O2 Flow Rate FiO2 09/19/15 08:19 93 9.00 50 09/19/15 08:05 95 40 09/19/15 05:58 99 50 09/19/15 04:00 Bi-Pap Trach Collar 09/19/15 04:00 95.8 82 22 113/66 98 09/19/15 03:45 98 50 09/19/15 00:59 98 BiPAP 50 09/19/15 00:59 98 50 09/19/15 00:00 Bi-Pap Trach Collar 09/19/15 00:00 100.1 94 18 128/79 98 09/18/15 21:30 Trach Collar 09/18/15 20:55 96 50 09/18/15 20:55 96 BiPAP 50 09/18/15 20:00 97.5 90 20 101/65 98 09/18/15 20:00 88 09/18/15 19:32 97 Trach Collar 09/18/15 16:00 97.6 97 20 96/64 97 09/18/15 13:49 95 09/18/15 13:49 95 Trach Collar 70 09/18/15 13:07 26 09/18/15 12:00 96.3 90 20 108/66 94 I/O 09/18/15 09/18/15 09/18/15 09/19/15 09/19/15 09/19/15 07:00 15:00 23:00 07:00 15:00 23:00 Intake Total 1307 ml 733 ml Output Total 600 ml 100 ml Balance 707 ml 633 ml Intake Oral 0 ml 0 ml Tube Feeding 1007 ml 433 ml Other 300 ml 300 ml Output Urine Total 600 ml 100 ml # Voids 3 # Bowel Movements 2 1 1 Result Diagram: 09/15/15 0500 09/16/15 0619 Objective Remarks GENERAL: NAD and unable to communicate-trachea in place SKIN: Warm and dry. HEAD: Normocephalic. EYES: No scleral icterus. No injection or drainage. NECK: Supple, trachea midline. No JVD or lymphadenopathy. CARDIOVASCULAR: Regular rate and rhythm without murmurs, gallops, or rubs. RESPIRATORY: Tachypneic, positive use of accessory muscle use. GASTROINTESTINAL: Abdomen soft, non-tender, nondistended. MUSCULOSKELETAL: No cyanosis, or edema. BACK: Nontender without obvious deformity. No CVA tenderness. 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 No acute intracranial findings. - Continue Sinemet 25/100 q8 via PEG, Seroquel 50 mg twice a day, olanzapine 5 mg a night, Klonopin 2 mg every 8 hours, Paxil 20 daily and Neurontin 300 mg twice a day. - Continue Lortab when necessary pain and fentanyl patch 50 g every 3 days for pain management. Fentanyl bolus prn breakthrough pain or if needed for turning/ nursing care/etc. Acute on chronic respiratory failure Chronic trach #8 Shiley distal XLT. Appreciate pulmonology consult. S/p treatment for PNA. Right pneumothorax status post pigtail catheter 2 (resolved) . - On Tpiece at 35% in the a.m. and PSV using Bipap 15/5 at 35% at night. Aggressive Pulmonary toilet, trach care, Bronchodilators ( DuoNeb) every 6 hours. History of orthostasis: On midodrine 5 mg twice a day Malnutrition: Status post PEG.Tolerating Jevity 1.5 @ 60 cc/hour . Currently Prevacid 30 mg per PEG tube daily for GERD. Hypernatremia-resolved Stable. free water 300 ml every 8 hours. Sepsis/ PNA/ UTI ID was consulted. ESBL klebsiella and cele tropicalis in urine cx. ESBL positive Klebsiella/Pseudomonas pneumonia. Stenotrophomonas in sputum 08/17. MRSA colonization. Watching off abx per ID: Diflucan 08/17-08/26 . Levaquin --08/26 for Stenotrophomonas. Completed course of meropenem for 08/11-08/20 for Klebsiella ESBL/pseudomonas pneumonia. S/p tobramycin as well. Bilateral lower extremity contractures/ Stage III sacral decubitus present on admission - Wound care evaluate and treat. Currently on Santyl daily with wet-to-dry changes. Continue physical therapy. GI - Prevacid DVT - SCDs/ Lovenox Continue with current treatment; monitor CBC and BMP in a.m. Néstor Linn MD Sep 19, 2015 08:40
[2015-09-19] MEDS: COLLAGENASE OINT 30 GM TUBE TOP SCH (09:00)
[2015-09-19] MEDS: MIDODRINE 5 MG TAB G-TUBE SCH ×2 (10:10→22:26)
[2015-09-19] MEDS: QUEtiapine FUMARATE 25 MG TAB G-TUBE SCH ×2 (10:10→22:26)
[2015-09-19] MEDS: LANSOPRAZOLE SOLUTAB 30 MG TAB NG SCH (10:10)
[2015-09-19] MEDS: PARoxetine HCL 20 MG TAB G-TUBE SCH (10:10)
[2015-09-19] MEDS: GABAPENTIN 300 MG CAP G-TUBE SCH ×2 (10:11→22:26)
[2015-09-19] MEDS: LACTOBACILLUS ACIDOPHILUS TAB PO SCH ×3 (10:11→17:11)
[2015-09-19] MEDS: SODIUM CHLORIDE 0.9% FLUSH 5 ML FLUSH IVF SCH ×2 (10:14→22:30)
[2015-09-19] MEDS: ARTIFICIAL TEARS OPTH SOLN 15 ML BTL EACH EYE SCH ×3 (10:23→17:12)
[2015-09-19] MEDS: LEVOFLOXACIN 500 MG PREMIX INJ 100 ML IV SCH (17:11)
[2015-09-19] MEDS: OLANZapine 5 MG TAB GT SCH (22:26)
[2015-09-19] MEDS: ENOXAPARIN SODIUM 40 MG/0.4 ML SYRINGE SQ SCH (22:56)
[2015-09-19] MEDS: RESP: ALBUTEROL 2.5 MG/3 ML NEB (PRN) NEB (23:19)
[2015-09-20] VITALS (14 sets, daily range): BP systolic 92–138; BP diastolic 52–93; PULSE 74–96; RESP 16–36; TEMP 97.2–99.7; O2SAT 90–100
[2015-09-20] MEDS: clonazePAM 1 MG TAB PO SCH ×3 (05:45→21:55)
[2015-09-20] MEDS: CARBIDOPA/LEVODOPA 25 MG/100 MG TAB GT SCH ×3 (05:45→21:55)
[2015-09-20] MEDS: FREE WATER G-TUBE SCH ×3 (05:45→21:55)
[2015-09-20] MEDS: HYOSCYAMINE SOLN 0.125 MG/ML 15 ML BTL PO PRN ×2 (05:47→09:35)
[2015-09-20] MEDS: CHLORHEXIDINE 0.12% (ORAL KIT) 15 ML CUP MT SCH ×2 (08:00→20:00)
[2015-09-20] MEDS: RESP: ALBUTEROL 2.5 MG/3 ML NEB (PRN) NEB ×2 (08:27→13:27)
[2015-09-20 08:42] LABS: AUTOMATED NEUTROPHIL # 6.5 TH/MM3 (1.8-7.7); BASOPHIL % 0.4 % (0.0-2.0); EOSINOPHIL % 10.4 % (0.0-4.0); HEMATOCRIT 30.6 % (39.0-51.0); HEMO FLAGS DIFF FINAL; LYMPH % 13.3 % (9.0-44.0); LYMPHOCYTE # 1.3 TH/MM3 (1.0-4.8); MEAN CELL VOLUME 85.5 FL (80.0-100.0); MEAN CORPUSCULAR HEMOGLOBIN 25.9 PG (27.0-34.0); MEAN CORPUSCULAR HGB CONC 30.3 % (32.0-36.0); MONO % 8.2 % (0.0-8.0); NEUT % 67.7 % (16.0-70.0); PLATELET COUNT 178 TH/MM3 (150-450); RED BLOOD COUNT 3.58 MIL/MM3 (4.50-5.90); RED CELL DISTRIBUTION WIDTH 15.1 % (11.6-17.2); WHITE BLOOD COUNT 9.6 TH/MM3 (4.0-11.0)
[2015-09-20 08:57] LABS: BICARBONATE 41.4 MEQ/L (21.0-32.0); POTASSIUM 4.3 MEQ/L (3.5-5.1)
--- NOTE | 2015-09-20 09:01 | HHI.PR ---
Subjective Remarks 54 y/o male [facility]way resident with advanced Parkinson's disease ; dementia; tracheostomy and PEG tube . Patient is Bedbound status and Unable to communicate 09/09/15-patient seen and examined; unable to communicate. Does not follow commands. Tachypneic and currently afebrile 09/10/15-patient seen and examined; nonverbal and does not follow command. Tachypneic and stable 09/11/15-patient seen and examined; nonverbal and no change. 09/12/15-patient seen and examined. Nonverbal and does not follow command. vitals stable and no longer evidence of tachypnea. 09/13/15-patient seen and examined, nonverbal with episode of sustained tachypnea however currently afebrile. 09/14/15-patient seen and examined; nonverbal and does not follow command.Patient with copious secretion in trach. Currently afebrile and no longer with episode of tachypnea 09/15/15-patient seen and examined; Afebrile and less secretion from trach. Nonverbal and does not follow command 09/16/15-patient seen and examined; no acute event overnight. Pulse oxy this AM 98%; trach with some secretions 09/17/15-patient seen and examined; currently on BiPAP. Afebrile positive for tachypnea. Nonverbal and does not follow command. Case discussed with RN. 09/18/15-patient seen and examined; nonverbal and does not follow command. No change. Case discussed with RN. 09/19/15-patient seen and examined; no acute event overnight. Currently on T piece. Was on BIPAP last night as scheduled. Nonverbal and does not follow command. 09/20/15-patient seen and examined; on BiPAP this morning and stable. Case discussed with both diesel technician as well as registered nurse. Vitals stable and afebrile. Objective Vitals Vital Signs Date Time Temp Pulse Resp B/P Pulse Ox O2 Delivery O2 Flow Rate FiO2 09/20/15 08:12 96 40 09/20/15 04:25 98 50 09/20/15 04:21 97.2 93 22 138/78 96 09/20/15 04:00 Bi-Pap Trach Collar 09/20/15 03:20 98 50 09/20/15 00:51 99.7 76 36 124/64 97 09/20/15 00:00 Bi-Pap Trach Collar 09/19/15 23:05 97 50 09/19/15 21:10 97.4 66 20 112/68 96 09/19/15 20:00 Trach Collar 8.00 09/19/15 20:00 93 09/19/15 19:30 95 T-piece 7.00 50 09/19/15 16:49 98.5 77 20 115/77 95 09/19/15 15:00 Trach Collar 09/19/15 12:00 97.9 88 20 107/75 95 I/O 09/19/15 09/19/15 09/19/15 09/20/15 09/20/15 09/20/15 07:00 15:00 23:00 07:00 15:00 23:00 Intake Total 733 ml 0 ml 1384 ml Output Total 100 ml 500 ml 400 ml Balance 633 ml -500 ml 984 ml Intake Oral 0 ml 0 ml 0 ml Tube Feeding 433 ml 1384 ml Other 300 ml Output Urine Total 100 ml 500 ml 400 ml # Bowel Movements 1 1 1 Result Diagram: 09/20/15 0813 09/16/15 0619 Imaging Last Impressions Chest X-Ray 09/13/15 0000 Signed Impressions: Service Date/Time: Sunday, September 13, 2015 08:41 - CONCLUSION: 1. Tracheostomy tube has its tip 2 cm above the kalie. 2. No acute focal pulmonary infiltrate or pulmonary vascular congestion. 3. Chronic interstitial changes bilaterally. Blair Hill MD Tunnelled Chest Tube Removal 08/05/15 1100 Signed Impressions: Service Date/Time: Wednesday, August 05, 2015 11:00 - CONCLUSION: Uncomplicated chest tube removal. Blaine Jackson MD Chest Tube Change 07/31/15 0000 Signed Impressions: Service Date/Time: Friday, July 31, 2015 14:34 - CONCLUSION: Uncomplicated reposition of previously placed chest tube as above. Blaine Jackson MD Chest Tube Insertion 07/30/15 0000 Signed Impressions: Service Date/Time: July 14:50 - CONCLUSION: Uncomplicated chest tube placement as above. Blaine Jackson MD Catheter Change 07/27/15 0000 Signed Impressions: Service Date/Time: Monday, July 27, 2015 14:43 - CONCLUSION: Uncomplicated gastrostomy tube exchange as above. Blaine Jackson MD Chest CT 07/11/15 0000 Signed Impressions: Service Date/Time: Saturday, July 11, 2015 09:49 - CONCLUSION: Scattered patchy densities significantly improved from previous study. Tiny anterior right basilar pneumothorax. Right-sided chest tube in good position. Néstor Matamoros MD Head CT 06/18/151902 Signed Impressions: Service Date/Time: , June 18, 2015 19:31 - CONCLUSION: Diffuse atrophy unchanged. No acute intracranial findings. Kush Briscoe MD Abdomen/Pelvis CT 06/18/151902 Signed Impressions: Service Date/Time: , June 18, 2015 19:36 - CONCLUSION: 1. Chronic nonspecific urinary bladder wall thickening. Bladder collapsed with Putnam catheter in place. 2. Chronic bilateral mid to lower lung zone groundglass opacity. 3. Nonobstructing left renal calculus. 4. Distended rectum. Kush Briscoe MD Objective Remarks GENERAL: NAD and unable to communicate-trachea in place SKIN: Warm and dry. HEAD: Normocephalic. EYES: No scleral icterus. No injection or drainage. NECK: Supple, trachea midline. No JVD or lymphadenopathy. CARDIOVASCULAR: Regular rate and rhythm without murmurs, gallops, or rubs. RESPIRATORY: Tachypneic, positive use of accessory muscle use. GASTROINTESTINAL: Abdomen soft, non-tender, nondistended. MUSCULOSKELETAL: No cyanosis, or edema. BACK: Nontender without obvious deformity. No CVA tenderness. Procedures 07/26- PEG replacement 07/29- right pigtail catheter placement for new pneumothorax 07/29 Date of Insertion: Jul 30, 2015 A/P Problem List: (1) Sepsis due to urinary tract infection Status: Resolved (2) Acute respiratory failure Status: Resolved (3) Chronic respiratory failure Status: Chronic (4) Parkinson disease Status: Chronic (5) UTI (urinary tract infection) Status: Resolved (6) Encephalopathy Status: Resolved Assessment and Plan 54-year-old male with Parkinson's disease/ Cognitive disorder not otherwise specified/ Chronic encephalopathy.CT head 06/18/15: - diffuse atrophy unchanged. No acute intracranial findings. - Continue Sinemet 25/100 q8 via PEG, Seroquel 50 mg twice a day, olanzapine 5 mg a night, Klonopin 2 mg every 8 hours, Paxil 20 daily and Neurontin 300 mg twice a day. - Continue Lortab when necessary pain and fentanyl patch 50 g every 3 days for pain management. Fentanyl bolus prn breakthrough pain or if needed for turning/ nursing care/etc. Acute on chronic respiratory failure Chronic trach #8 Shiley distal XLT. Appreciate pulmonology consult. S/p treatment for PNA. Right pneumothorax status post pigtail catheter 2 (resolved) . - On Tpiece at 35% in the a.m. and PSV using Bipap 15/5 at 35% at night. Aggressive Pulmonary toilet, trach care, Bronchodilators ( DuoNeb) every 6 hours. History of orthostasis: On midodrine 5 mg twice a day -stable Malnutrition: Status post PEG.Tolerating Jevity 1.5 @ 60 cc/hour . Currently Prevacid 30 mg per PEG tube daily for GERD. Hypernatremia-resolved Stable. free water 300 ml every 8 hours. Sepsis/ PNA/ UTI ID was consulted. ESBL klebsiella and cele tropicalis in urine cx. ESBL positive Klebsiella/Pseudomonas pneumonia. Stenotrophomonas in sputum 08/17. MRSA colonization. Watching off abx per ID: Diflucan 08/17-08/26 . Levaquin --08/26 for Stenotrophomonas. Completed course of meropenem for 08/11-08/20 for Klebsiella ESBL/pseudomonas pneumonia. S/p tobramycin as well. Currently doing well off antibiotics Bilateral lower extremity contractures/ Stage III sacral decubitus present on admission - Wound care evaluate and treat. Currently on Santyl daily with wet-to-dry changes. Continue physical therapy. GI - Prevacid DVT - SCDs/ Lovenox Continue with current treatment; Néstor Linn MD Sep 20, 2015 09:01
[2015-09-20] MEDS: PARoxetine HCL 20 MG TAB G-TUBE SCH (09:33)
[2015-09-20] MEDS: GABAPENTIN 300 MG CAP G-TUBE SCH ×2 (09:33→20:54)
[2015-09-20] MEDS: QUEtiapine FUMARATE 25 MG TAB G-TUBE SCH ×2 (09:34→20:54)
[2015-09-20] MEDS: LANSOPRAZOLE SOLUTAB 30 MG TAB NG SCH (09:34)
[2015-09-20] MEDS: MIDODRINE 5 MG TAB G-TUBE SCH ×2 (09:34→20:54)
[2015-09-20] MEDS: LACTOBACILLUS ACIDOPHILUS TAB PO SCH ×3 (09:34→18:11)
[2015-09-20] MEDS: ARTIFICIAL TEARS OPTH SOLN 15 ML BTL EACH EYE SCH ×3 (09:35→18:14)
[2015-09-20] MEDS: SODIUM CHLORIDE 0.9% FLUSH 5 ML FLUSH IVF SCH ×2 (09:35→20:55)
--- NOTE | 2015-09-20 14:45 | RADRPT ---
EXAM DATE/TIME: 09/20/2015 14:08 [facility] COMPARISON: CHEST SINGLE AP, September 13, 2015, 8:41. INDICATIONS : Dysphagia MEDICAL HISTORY : Hypertension. Gastroesophageal reflux disease. Diabetes mellitus type II SURGICAL HISTORY : Tracheostomy. ENCOUNTER: Subsequent ACUITY: 3 months PAIN SCORE: Non-responsive. LOCATION: Bilateral chest FINDINGS: A single view of the chest demonstrates the lungs to be symmetrically aerated without evidence of mas s, infiltrate or effusion. Chronic stable interstitial changes bilaterally. The tracheostomy tube is in good position. There is no pneumothorax. The cardiomediastinal contours are unremarkable. Osseous structures are intact. CONCLUSION: No significant interval change compared to the prior exam. Ilir Agosto MD on September 20, 2015 at 14:41 Board Certified Radiologist. This report was verified electronically.
[2015-09-20] MEDS ORDERED: methylPREDNISolone SOD SUCC 40 MG/1 ML VIAL IV ONE (15:00)
[2015-09-20] MEDS ORDERED: FUROSEMIDE 20 MG/2 ML VIAL IV PUSH ONE (15:00)
[2015-09-20 15:26] LABS: BLOOD GAS BASE EXCESS 16.8 mmol/L (-2-2); BLOOD GAS CARBOXYHEMOGLOBIN 1.8 % (0-4); BLOOD GAS HCO3 43 mmol/L (22-26); BLOOD GAS METHEMOGLOBIN 0.6 % (0-2); BLOOD GAS O2 HGB SATURATION 89 % (90-100); BLOOD GAS OXYGEN CONTENT 12.1 Vol % (12.0-20.0); BLOOD GAS PCO2 77 mmHg (38-42); BLOOD GAS PO2 66 mmHg (61-120); BLOOD GAS TOTAL HGB 9.6 G/DL (12.0-16.0); TEMP CORR TO 98.6
[2015-09-20 15:27] LABS: CRITICAL VALUE YES; DRAW SITE RT RADIAL; FIO2 50 %; LITER FLOW 9 L/M; NUMBER OF ARTERIAL PUNCTURES 1; OXYGEN DEVICE TRACH TUBE; STAT YES
--- NOTE | 2015-09-20 15:30 | HHI.PR ---
Addendum to Inpatient Note Addendum Reason: Additional Documentation Additional Information staff nurse aspirated tube feedings from tracheostomy tube patient desaturated 89-90% at 50% trac tube increase Fi02- 70% sats improve to 94% likely aspirated stat ABG - shows compensated respiratory acidosis d/w Dr. Ag Pulmonary on the case- [place] [facility] [place] [facility] [place] - may need to be hook back to ventilator d/w family and staff nurse Claire Queen MD Sep 20, 2015 15:29
[2015-09-20] MEDS ORDERED: PIPERACIL-TAZO 3.375 GM PREMIX 50 ML IV SCH (16:00)
--- NOTE | 2015-09-20 16:17 | HHI.PR ---
Subjective Remarks 54 YOWM with ChRF,Trach, multiple uti No fever Gets anxious. No Fever Mod amount of trach secretions. On trach collar, techypnoic. TF like material suctioned from ETT Brother at BS Objective Vital Signs Vital Signs Date Time Temp Pulse Resp B/P Pulse Ox O2 Delivery O2 Flow Rate FiO2 09/20/15 15:03 Trach Collar 09/20/15 12:00 98.8 89 22 102/64 92 09/20/15 10:20 92 T-piece 10.00 50 09/20/15 08:20 95 09/20/15 08:12 96 40 09/20/15 08:00 97.4 85 24 130/93 98 09/20/15 07:15 Bi-Pap 8.00 50 Trach Collar 09/20/15 04:25 98 50 09/20/15 04:21 97.2 93 22 138/78 96 09/20/15 04:00 Bi-Pap Trach Collar 09/20/15 03:20 98 50 09/20/15 00:51 99.7 76 36 124/64 97 09/20/15 00:00 Bi-Pap Trach Collar 09/19/15 23:05 97 50 09/19/15 21:10 97.4 66 20 112/68 96 09/19/15 20:00 Trach Collar 8.00 09/19/15 20:00 93 09/19/15 19:30 95 T-piece 7.00 50 09/19/15 16:49 98.5 77 20 115/77 95 I/O 09/19/15 09/19/15 09/19/15 09/20/15 09/20/15 09/20/15 07:00 15:00 23:00 07:00 15:00 23:00 Intake Total 733 ml 0 ml 1384 ml 0 ml Output Total 100 ml 500 ml 400 ml Balance 633 ml -500 ml 984 ml 0 ml Intake Oral 0 ml 0 ml 0 ml IV Total 0 ml Tube Feeding 433 ml 1384 ml Other 300 ml Output Urine Total 100 ml 500 ml 400 ml # Bowel Movements 1 1 1 Result Diagram: 09/20/1581209/20/1513 Objective Remarks GENERAL: MBMN male on Vent. SKIN: Warm and dry. HEAD: Normocephalic. EYES: No scleral icterus. No injection or drainage. NECK: Supple, trachea midline. No JVD or lymphadenopathy. has trach CARDIOVASCULAR: Regular rate and rhythm without murmurs, gallops, or rubs. RESPIRATORY: Breath sounds equal bilaterally. No accessory muscle use. GASTROINTESTINAL: Abdomen soft, non-tender, nondistended. PEG tube in place MUSCULOSKELETAL: No cyanosis, or edema. BACK: Nontender without obvious deformity. No CVA tenderness. A/P Assessment and Plan VDRF S/P Trach Parkinson's diasease Dementia Aspiration PLAN: TF Ativan 0.5 mg tid prn Cont CPAP DW Will tr to [facility] [place] Solumedrol Abx Zosyn If remains sob, will start on Vent support. Severiano Ag MD Sep 20, 2015 16:17
--- NOTE | 2015-09-20 16:40 | HHI.PR ---
Addendum to Inpatient Note Addendum Reason: Additional Documentation Additional Information I was called regarding possible aspiration on patient and proceeded with : Nothing by mouth Chest x-ray start ordered Lasix 40 mg IV x 1 ordered Solu-Medrol 40 mg IV 1 ordered Spoke to underwriting technician and treatment given I had my colleague Dr. Membreno who happened to be on the floor to eyeball the patient I later went on the floor and spoke to one family member and explained to him the course of the treatment, and that patient will be transferred to 517 for close monitoring Will start empiric antibiotic for aspiration possible pneumonia and have infectious disease specialist see patient Start clindamycin 900 mg every 8Hr @ 2100 Obtain blood cultures as well as possible sputum culture Néstor Linn MD Sep 20, 2015 16:40
--- NOTE | 2015-09-20 16:46 | HHI.CCPN ---
Subjective Remarks/Hospital Course 06/17: Pt is a 54 yr man with multiple medial problems including Parkinson's disease, advanced dementia, hyponatremia, anxiety, pneumonia, GERD, cognitive disorder, and multidrug resistant UTI- ESBL02/19/15 , who resides in a correction. Pt by report was found by staff in correction to be less alert and having respiratory difficultly and fevers. Pt was brought to ED adn placed on ventilator. His workup was inclusive of labs, chest xray and ct head and abd/pelvis. WBC 16.4, +UTI, lactic acid 4, troponin ,0.02, BUN/ cre 18/ 0.76. CT head 06/18/15: diffuse atrophy unchanged. No acute intracranial findings ct abd/ pelvis with IV contrast: 06/18/15 Conclusion: 1. Chronic nonspecific urinary bladder wall thickening. Bladder collapsed with Putnam catheter in place. 2.Chronic bilateral mid to lower zone groundglass opacity. 3. Nonobstructing left renal calculus. 4. Distended rectum Pt admitted and fluid and abx ordered. 06/18: Drowsy, easily arousable. On mechanical ventilation via tracheostomy. Tachypneic. Resting tremor noted. 06/19: Drowsy, arousable. On mechanical ventilation via tracheostomy. 06/20: Drowsy, arousable. Remains on mechanical ventilation via tracheostomy. We'll repeat blood cultures, UA and urine cultures. Fluconazole IV added in view of yeast in urine. 07/06: Reconsulted as patient return to the ventilator on a right ventricular due to tachypnea. Low-grade temperatures. Tolerating tube feeding. Extremity encephalopathic demented patient with difficult neurological examination. 07/07: Status post chest tube placement by IR for right pneumothorax 07/06. Afebrile. Tolerating tube feeds. Positive BM. Currently tachypneic on the ventilator. Does not appear to be any acute distress. 07/08: Afebrile. Tolerating tube feeding. He is comfortable currently on CPAP trials 11/10. Positive BM. 07/09: Afebrile. Tolerating tube feeding. Appears comfortable on T bar. Positive BM. 07/10: Afebrile. Eyes are open. Remained on T piece overnight. Tolerating tube feeding. 07/11: MAXIMUM TEMPERATURE 100. Currently 98.6. Eyes are open. On ACV overnight secondary to "tachypnea and sweating". Switching back to PSV trials today. Goal is T piece during daytime, CPAP at night. 07/12: No acute events overnight. On PSV 15/5 -attempt TP up to 6 hours today. No pneumothorax on chest x-ray 07/13: Placed back on full ventilator support for tachypnea. Otherwise clinically unchanged. No fever today 07/14: Patient was on T piece yesterday evening, placed back on PSV overnight, patient mechanical ventilation this morning. Patient appears to be struggling with mechanical ventilation. Patient placed back on PSV with improvement 07/15: Patient placed back on mechanical ventilation last evening due to respiratory rate. It was indicated patient was tachypnea can the 40s. Patient on mechanical ventilation this time with respiration rate mid 20s. Chest tube still in place without any output, chest x-ray still indicating resolution of pneumothorax. 07/16: Patient seen and examined today. Patient placed back on mechanical ventilation overnight due to respiratory rate. Even on mechanical ventilation patient has respiration rate in the 30s. Patient afebrile, blood pressure stable. Continue vent weaning 07/17: Patient seen and examined. Currently afebrile. Currently on CPAP 15/5 @ 40%. Patient is awake with open mouth resting in bed in no apparent acute distress. Tolerating tube feeding. 2 bowel movements. 07/18: No neurological changes. Afebrile. 2 bowel moments. Tolerating tube feeding. We'll attempt TP trials today. On CPAP since 07/15 07/19 No events overnight. On CPAP with PS: 10, PEEP: 5 and FIO2 35%. Afebrile. On no sedation. 07/20 No events overnight. Tolerating CPAP. Afebrile. 07/21: Remains on CPAP. Attempt T piece trial today. Afebrile. One bowel movement. Tolerating tube feeding. 07/22: Afebrile. Positive BM. Tolerating tube feeding. Noted switched tracheostomy to #6 Shiley cuffed fenestrated. Neurologically unchanged 07/23: Afebrile. Positive BM. Tolerating tube feeding. Questionable leak in exchange trach. Place back on a rate/ACV overnight. Insufflated seems to be doing better at the present time. Will check chest x-ray. Possible he might need #6 XLT versus replacement of chronic #8 Shiley. 07/24: Tolerating TP today, RR in low 30s patient appears comfortable. No acute events overnight 07/25: Remains off the ventilator more than 36 hours now. Intermittently tachypneic probably breathing. Chest x-ray was clear yesterday. No acute events reported overnight. PEG not functioning per RN 08/02: Patient was transferred back to critical care service due to continuing ventilator management, tachypnea. Patient clinical status with no significant change. Patient with low-grade fever 100.2, 08/03: Patient seen and examined today. No significant change in clinical status. Patient still with chronic tachypnea. Patient afebrile now. 08/04: Patient seen and examined today. No change in clinical status. Patient still continues to have chronic tachypnea. Patient afebrile. Continue vent weaning 08/05: Patient seen and examined today. Patient had chest tube removed yesterday , chest x-ray shows redevelopment of pneumothorax. Chest tube replaced. Otherwise, patient still on ventilator with tachypnea. Afebrile 08/06: Patient seen and examined today. Patient went to have chest tube placed, repeat chest x-ray did not indicate any pneumothorax. No overnight events. We' ll need to pursue LTAC placement 08/07 No events overnight. On ventilator via trach. Afebrile. 08/08 Patient tolerated CPAP x4 hrs yesterday. Afebrile. On no sedation. 08/09 No events overnight. Tolerated CPAP x 12 hrs yesterday. Afebrile. 08/10 Patient tolerated TP's x 12 hrs yesterday back on ACV overnight. 08/11 No events overnight, currently on TP's with 40% FIO2. Afebrile. 08/12 On CPAP 10/5. Tolerated Tpiece 3 hours earlier today. Afebrile. 08/13 On CPAP 10/5. Not tolerating CPAP as well over last few days and RT notes challenge with suctioning respiratory secretions adequately. Discussing with healthcare proxy regarding exchange trach to 8.0. 08/14 Nursing and RT staff having continued difficulty suctioning respiratory secretions via 6.0 tracheostomy. KAREN Garcia did not consent to stoma dilation and trach upsize yesterday but said she would call back and let me know but no return call. Contacted again today and left a message. Afebrile. On CPAP 10/5. Brow furrowing on exam, appears to be in pain but pain not localizable. Tolerating tube feeds, had BM yesterday 08/15 Not tolerating CPAP today. Contacted healthcare surrogate again and discussed need for trach change. She consented and trach was dilated and up- sized to 8.0 Distal XLT to facilitate pulmonary toilet and to address volume leak. 08/16 No events overnight. Remains on ventilator via trach. Afebrile. Tolerating TF. 08/17 No events overnight. Afebrile. 08/18 Patient tolerated CPAP x 4 hrs yesterday. Afebrile.On ventilator via trach. 08/19 On CPAP 25/06. Temp max 99.3 08/20 Stenotrophomonas in sputum, started on Levaquin per ID. Temp max 99.8. On CPAP 20/09. Tube feeds were held because PEG was clogged but now PEG is functioning. 08/21 No events overnight. Afebrile. Remains on ventilator via trach. Has been tolerating CPAP trials for last 2 days. 08/22 No events overnight. Afebrile , Has been on CPAP all night with PS: 20, PEEP; 5 and FIO2 35%. 08/23 No events overnight. Remains on CPAP, T:99.9 08/24 No events overnight. On CPAP PS 10, PEEP; 5 and FIO2 35% overnight. Afebrile. 08/25 No events overnight. Afebrile. On CPAP overnight with PS 8, PEEP: 5 and FIO2 35%, afebrile. Tolerating TF. 08/26 Tolerating Tpiece. 08/27 Tolerated Tpiece yesterday and overnight. However this evening desaturated and was placed back on CPAP. Dr. Mistry attempted to update daughter Radha Foreman and discuss his overall poor prognosis for recovery, but call got disconnected midway through call and could not reach her back 08/28 On PSV 10/5 40% today. Afebrile. 08/29 On CPAP overnight. Now on Tpiece 70% per pulmonology. Increased yellow secretions noted. Temp max 99.1 Nursing staff expresses concern that he appears uncomfortable during all nursing care. Called elsa Garcia to update , no answer, left message to call me. 08/30: On CPAP overnight. Currently on T piece at 45%. Currently afebrile. Positive BM. Tolerating tube feeding. 08/31: On CPAP overnight. Will return T piece at 35%. MAXIMUM TEMPERATURE 99.6. 5 bowel movements. Tolerating tube feeds. Neurological examination unchanged. 09/01: Tmax 99.2. Currently afebrile. Currently in TPs at 35%. 7 bowel movement overnight. Tolerating tube feeding. Subjective: 09/19: Halicat called secondary to aspiration on Gen. medical floor. Transfer to ICU and placed on mechanical ventilation. ABG shows CO2 retention. Etc. revealed no acute cardiac 20 finds however copious message to feed suctioned from trach tube Objective - Vital Signs Date Time Temp Pulse Resp B/P Pulse Ox O2 Delivery O2 Flow Rate FiO2 09/20/15 16:26 100 50 09/20/15 15:03 Trach Collar 09/20/15 12:00 98.8 89 22 102/64 09/20/15 10:20 10.00 Intake and Output 09/19/15 09/19/15 09/20/15 08:00 16:00 00:00 Intake Total 733 ml 0 ml Output Total 100 ml 500 ml Balance 633 ml -500 ml Result Diagram: 09/20/1581209/20/15812 Objective Remarks GENERAL: 54-year-old male, cachectic, debilitated with contractures on ACV VT tracheostomy 50% HEENT: NC/AT. PERRL. MMM. OP without erythema or exudates NECK: No JVD. Supple. 8.[address] trach in place CARDIAC: RRR. S1/S2. No S4. No murmurs, clicks gallops or rubs. LUNGS: Fine crackles are appreciated throughout all lung bagley. No inspiratory or expiratory wheezing ABDOMEN: S/NT/ND. Positive BS EXTREMITIES: 1+ dependent pedal edema. Contractures and deformities of fingers. Stage III coccyx/sacral decubitus ulcer NEUROLOGY: Patient with significant contractures of the bilat lower extremity, upper extremities. Eyes open spontaneously. Temporal and facial muscle wasting , muscular atrophy all extremities. Procedures 07/26- PEG replacement 07/29- right pigtail catheter placement for new pneumothorax 07/29 Date of Insertion: Jul 30, 2015 A/P Assessment and Plan Neuro/Psych: Parkinson's disease Cognitive disorder not otherwise specified Chronic encephalopathy Dementia Depression CT head 06/18/15: - diffuse atrophy unchanged. No acute intracranial findings Continue Sinemet 25/100 q8 via PEG, Seroquel 50 mg twice a day, olanzapine 5 mg a night, Klonopin 2 mg every 8 hours, Paxil 20 daily These are watermaster home medications, dose of antipsychotics have been titrated up slightly since admit. Continue Lortab when necessary pain and fentanyl patch 50 g every 3 days for pain management. Fentanyl bolus prn breakthrough pain or if needed for turning/ nursing care/etc. Resp: Acute on chronic respiratory failure Chronic trach #8 Shiley distal XLT Pneumonia - resolved Right pneumothorax status post pigtail catheter 2 (resolved) ACV 16/500/5/[address] Restrepo following. Pulm toilet, trach care. On Solu-Medrol 60 mg twice a day Exchanged to 8 Distal XLT on 08/15 to facilitate suctioning, trach care. Bronchodilators ( DuoNeb) every 6 hours rewritten Status post chest tube on 07/06. Removed 07/16. Replacement again by interventional radiology on 07/30, chest tube removed 08/04, repeat films do not indicate any pneumothorax CXR from 08/30 shows no focal pneumonia or pneumothorax Cardiac History of orthostasis History of CAD History dyslipidemia History of hypertension Continue Midodrine 5 mg twice a day. On 2.5 twice a day at home Monitor HR and BP keep MAP>65mmHg GI: Chronic moderate protein energy malnutrition Dysphagia Status post PEG Internal hemorrhoids Gastroesophageal reflux disease - Currently holding Jevity 1.5 at 60 cc an hour due to aspiration - Check KUB - Currently Prevacid 30 mg per PEG tube daily for GERD - Currently not on bowel regimen secondary to diarrhea FEN/Renal: Nonobstructing left renal calculus Hypernatremia - Monitor renal function, I/O's. electrolytes replacement per protocol. - Condom catheter in place. - Free water 300 every 8. Currently on normal saline at 100 cc an hour ID: Candiduria (cele tropicalis urine cx 08/17) ESBL positive Klebsiella/Pseudomonas pneumonia Stenotrophomonas in sputum 08/17 MRSA colonization sepsis UTI Klebsiella ESBL positive (has been treated) Watching off abx per ID: Diflucan 08/17-08/26 . Levaquin 08/20--08/26 for Stenotrophomonas. ID signed off, reconsult if needed. Completed course of meropenem for 7/6-08/20 for Klebsiella ESBL/pseudomonas pneumonia. On Lactinex tid Started on Unasyn 3 g IV every 6 hours Sputum ordered Pertinent cultures Urine cx 08/17 - cele tropicalis Blood culture 08/17 negative sputum culture 08/17 - pseudomonas and Stenotrophomonas maltophilia. Urine culture: 08/02 Klebsiella pneumonia ESBL positive Urine culture: 08/02 Cele Tropicalis, C. Glabrata Sputum culture: 08/02 Pseudomonas, Klebsiella pneumonia ESBL positive Blood culture: 08/02 yeast species, Cele glabrata, Cele tropicalis - History of Multidrug resistant UTI- ESBL 02/19/15 , MRSA + 03/20/15 - Cele glabrata in urine 03/19/15 - Rechecked blood, sputum and urine cultures 07/06 no growth - 06/17 - blood cultures 2 - CONS/staph epi - 06/17 - sputum - ESBL positive Klebsiella/Pseudomonas Treated 15 days with tobramycin aerosols twice a day. - 06/17 - urine - C. glabrata/tropicalis - treated with Diflucan Endo: Sliding-scale insulin if needed for glycemic control Heme Normocytic Anemia Leukocytosis - Monitor CBC intermittently MSK Bilateral lower extremity Contractures Stage III sacral decubitus present on admission - Wound care evaluate and treat. Currently on Santyl daily with wet-to-dry changes. - Currently has recommended bed - Continue physical therapy Prophylaxis - GI - Prevacid - DVT - SCDs/ Lovenox. ACCESS: PIVs placed by vascular access team. Critical Care: The total critical care time was 35 minutes. Time to perform other separately billable procedures was not included in the critical care time. Chad Oleary MD Sep 20, 2015 16:46
[2015-09-20] MEDS: SODIUM CHLOR 0.9% 1000 ML INJ 1,000 ML IV SCH (18:11)
[2015-09-20] MEDS: LEVOFLOXACIN 500 MG PREMIX INJ 100 ML IV SCH (18:13)
[2015-09-20 18:44] LABS: BLOOD GAS BASE EXCESS 15.7 mmol/L (-2-2); BLOOD GAS CARBOXYHEMOGLOBIN 1.3 % (0-4); BLOOD GAS HCO3 42 mmol/L (22-26); BLOOD GAS METHEMOGLOBIN 0.7 % (0-2); BLOOD GAS O2 HGB SATURATION 96 % (90-100); BLOOD GAS OXYGEN CONTENT 15.2 Vol % (12.0-20.0); BLOOD GAS PCO2 76 mmHg (38-42); BLOOD GAS PO2 104 mmHg (61-120); BLOOD GAS TOTAL HGB 11.2 G/DL (12.0-16.0); TEMP CORR TO 98.6
[2015-09-20 18:46] LABS: CRITICAL VALUE YES; DRAW SITE LT RADIAL; FIO2 50 %; OXYGEN DEVICE VENTILATOR; VENT SETTINGS AC/16/500/+5
[2015-09-20 18:47] LABS: NUMBER OF ARTERIAL PUNCTURES 1; STAT NO; ULNAR PULSE PRESENT
[2015-09-20] MEDS: CLINDAMYCIN INJ 900 MG in SODIUM CHLORIDE 0.9% INJ 100 ML IV SCH (20:53)
[2015-09-20] MEDS: OLANZapine 5 MG TAB GT SCH (20:54)
[2015-09-20] MEDS: methylPREDNISolone SOD SUCC 125 MG/2 ML VIAL IV PUSH SCH (20:54)
[2015-09-20] MEDS ORDERED: AMPICILLIN-SULBACTAM INJ 3 GM VIAL IM SCH (21:00)
[2015-09-20] MEDS: RESP: ALBUTEROL 2.5 MG/IPRATROPIUM 0.5 MG NEB (SCH) NEB (21:23)
[2015-09-20] MEDS: ENOXAPARIN SODIUM 40 MG/0.4 ML SYRINGE SQ SCH (21:55)
[2015-09-21] VITALS (18 sets, daily range): BP systolic 105–145; BP diastolic 52–59; PULSE 67–96; RESP 16–22; TEMP 96.7–98; O2SAT 93–100
[2015-09-21] MEDS: RESP: ALBUTEROL 2.5 MG/IPRATROPIUM 0.5 MG NEB (SCH) NEB ×4 (03:04→21:17)
[2015-09-21 04:51] LABS: HEMATOCRIT 29.7 % (39.0-51.0); MEAN CELL VOLUME 85.1 FL (80.0-100.0); MEAN CORPUSCULAR HEMOGLOBIN 25.7 PG (27.0-34.0); MEAN CORPUSCULAR HGB CONC 30.2 % (32.0-36.0); PLATELET COUNT 162 TH/MM3 (150-450); RED BLOOD COUNT 3.49 MIL/MM3 (4.50-5.90); RED CELL DISTRIBUTION WIDTH 14.9 % (11.6-17.2); REVIEW FLAG FINAL; WHITE BLOOD COUNT 7.2 TH/MM3 (4.0-11.0)
[2015-09-21] MEDS: CLINDAMYCIN INJ 900 MG in SODIUM CHLORIDE 0.9% INJ 100 ML IV SCH ×3 (05:12→20:23)
[2015-09-21] MEDS: clonazePAM 1 MG TAB PO SCH ×3 (05:12→20:22)
[2015-09-21] MEDS: CARBIDOPA/LEVODOPA 25 MG/100 MG TAB GT SCH ×3 (05:12→20:23)
[2015-09-21] MEDS: SODIUM CHLOR 0.9% 1000 ML INJ 1,000 ML IV SCH (05:13)
[2015-09-21] MEDS: FREE WATER G-TUBE SCH (05:13)
--- NOTE | 2015-09-21 05:32 | RADRPT ---
EXAM DATE/TIME: 09/21/2015 04:39 [facility] COMPARISON: CHEST SINGLE AP, September 20, 2015, 14:08. INDICATIONS : Shortness of breath. MEDICAL HISTORY : Hypertension. Gastroesophageal reflux disease. Diabetes mellitus type II. SURGICAL HISTORY : Tracheostomy. ENCOUNTER: Subsequent ACUITY: 3 months PAIN SCORE: Non-responsive. LOCATION: Bilateral chest FINDINGS: There is a tracheostomy tube in place. The heart size is normal. There is elevation of the left hemid iaphragm. The lungs are grossly clear. CONCLUSION: No acute disease. Erlin Barajas MD on September 21, 2015 at 5:30 Board Certified Radiologist. This report was verified electronically.
[2015-09-21] MEDS: CHLORHEXIDINE 0.12% (ORAL KIT) 15 ML CUP MT SCH ×2 (08:00→20:24)
[2015-09-21] MEDS: REMOVE OLD PATCH TD SCH (08:00)
[2015-09-21] MEDS: PARoxetine HCL 20 MG TAB G-TUBE SCH (08:06)
[2015-09-21] MEDS: LANSOPRAZOLE SOLUTAB 30 MG TAB NG SCH (08:06)
[2015-09-21] MEDS: MIDODRINE 5 MG TAB G-TUBE SCH ×2 (08:06→20:22)
[2015-09-21] MEDS: GABAPENTIN 300 MG CAP G-TUBE SCH ×2 (08:06→20:22)
[2015-09-21] MEDS: LACTOBACILLUS ACIDOPHILUS TAB PO SCH ×3 (08:06→17:09)
[2015-09-21] MEDS: QUEtiapine FUMARATE 25 MG TAB G-TUBE SCH ×2 (08:06→20:22)
[2015-09-21] MEDS: SODIUM CHLORIDE 0.9% FLUSH 5 ML FLUSH IVF SCH ×2 (08:07→20:23)
[2015-09-21] MEDS: fentaNYL 50 MCG/HR PATCH TD SCH (08:07)
[2015-09-21] MEDS: methylPREDNISolone SOD SUCC 125 MG/2 ML VIAL IV PUSH SCH ×2 (08:08→20:22)
[2015-09-21] MEDS: COLLAGENASE OINT 30 GM TUBE TOP SCH ×2 (08:12→09:00)
[2015-09-21] MEDS: ARTIFICIAL TEARS OPTH SOLN 15 ML BTL EACH EYE SCH ×3 (08:12→17:12)
[2015-09-21] MEDS ORDERED: POTASSIUM CL 40 MEQ/30 ML LIQ UDC PO/TUBE PRN ×2 (10:45)
[2015-09-21] MEDS ORDERED: POTASSIUM PHOSPHATE MONOBASIC 500 MG TAB PO PRN (10:45)
[2015-09-21] MEDS ORDERED: MAGNESIUM SULFATE INJ 4 GM in SODIUM CHLORIDE 0.9% INJ 92 ML IV PRN (10:45)
[2015-09-21] MEDS ORDERED: POTASSIUM PHOSPHATE INJ 30 MMOL in SODIUM CHLOR 0.9% 250 ML INJ 250 ML IV PRN (10:45)
[2015-09-21] MEDS ORDERED: POTASSIUM CHLOR 40 MEQ PREMIX 100 ML IV PRN ×2 (10:45)
[2015-09-21] MEDS ORDERED: MAGNESIUM SULFATE INJ 2 GM in SODIUM CHLORIDE 0.9% INJ 96 ML IV PRN (10:45)
[2015-09-21] MEDS ORDERED: POTASSIUM CHLOR 20 MEQ PREMIX 100 ML IV PRN ×2 (10:45)
[2015-09-21] MEDS ORDERED: POTASSIUM PHOSPHATE MONOBASIC 500 MG TAB PO/TUBE PRN (10:45)
[2015-09-21] MEDS ORDERED: MAGNESIUM OXIDE 400 MG TAB PO PRN (10:45)
[2015-09-21] MEDS ORDERED: SODIUM PHOSPHATE INJ 30 MMOL in SODIUM CHLOR 0.9% 250 ML INJ 240 ML IV PRN (10:45)
--- NOTE | 2015-09-21 10:49 | HHI.CCPN ---
Subjective Remarks/Hospital Course 06/17: Pt is a 54 yr man with multiple medial problems including Parkinson's disease, advanced dementia, hyponatremia, anxiety, pneumonia, GERD, cognitive disorder, and multidrug resistant UTI- ESBL02/19/15 , who resides in a correction. Pt by report was found by staff in correction to be less alert and having respiratory difficultly and fevers. Pt was brought to ED adn placed on ventilator. His workup was inclusive of labs, chest xray and ct head and abd/pelvis. WBC 16.4, +UTI, lactic acid 4, troponin ,0.02, BUN/ cre 18/ 0.76. CT head 06/18/15: diffuse atrophy unchanged. No acute intracranial findings ct abd/ pelvis with IV contrast: 06/18/15 Conclusion: 1. Chronic nonspecific urinary bladder wall thickening. Bladder collapsed with Putnam catheter in place. 2.Chronic bilateral mid to lower zone groundglass opacity. 3. Nonobstructing left renal calculus. 4. Distended rectum Pt admitted and fluid and abx ordered. 06/18: Drowsy, easily arousable. On mechanical ventilation via tracheostomy. Tachypneic. Resting tremor noted. 06/19: Drowsy, arousable. On mechanical ventilation via tracheostomy. 06/20: Drowsy, arousable. Remains on mechanical ventilation via tracheostomy. We'll repeat blood cultures, UA and urine cultures. Fluconazole IV added in view of yeast in urine. 07/06: Reconsulted as patient return to the ventilator on a right ventricular due to tachypnea. Low-grade temperatures. Tolerating tube feeding. Extremity encephalopathic demented patient with difficult neurological examination. 07/07: Status post chest tube placement by IR for right pneumothorax 07/06. Afebrile. Tolerating tube feeds. Positive BM. Currently tachypneic on the ventilator. Does not appear to be any acute distress. 07/08: Afebrile. Tolerating tube feeding. He is comfortable currently on CPAP trials 11/10. Positive BM. 07/09: Afebrile. Tolerating tube feeding. Appears comfortable on T bar. Positive BM. 07/10: Afebrile. Eyes are open. Remained on T piece overnight. Tolerating tube feeding. 07/11: MAXIMUM TEMPERATURE 100. Currently 98.6. Eyes are open. On ACV overnight secondary to "tachypnea and sweating". Switching back to PSV trials today. Goal is T piece during daytime, CPAP at night. 07/12: No acute events overnight. On PSV 15/5 -attempt TP up to 6 hours today. No pneumothorax on chest x-ray 07/13: Placed back on full ventilator support for tachypnea. Otherwise clinically unchanged. No fever today 07/14: Patient was on T piece yesterday evening, placed back on PSV overnight, patient mechanical ventilation this morning. Patient appears to be struggling with mechanical ventilation. Patient placed back on PSV with improvement 07/15: Patient placed back on mechanical ventilation last evening due to respiratory rate. It was indicated patient was tachypnea can the 40s. Patient on mechanical ventilation this time with respiration rate mid 20s. Chest tube still in place without any output, chest x-ray still indicating resolution of pneumothorax. 07/16: Patient seen and examined today. Patient placed back on mechanical ventilation overnight due to respiratory rate. Even on mechanical ventilation patient has respiration rate in the 30s. Patient afebrile, blood pressure stable. Continue vent weaning 07/17: Patient seen and examined. Currently afebrile. Currently on CPAP 15/5 @ 40%. Patient is awake with open mouth resting in bed in no apparent acute distress. Tolerating tube feeding. 2 bowel movements. 07/18: No neurological changes. Afebrile. 2 bowel moments. Tolerating tube feeding. We'll attempt TP trials today. On CPAP since 07/15 07/19 No events overnight. On CPAP with PS: 10, PEEP: 5 and FIO2 35%. Afebrile. On no sedation. 07/20 No events overnight. Tolerating CPAP. Afebrile. 07/21: Remains on CPAP. Attempt T piece trial today. Afebrile. One bowel movement. Tolerating tube feeding. 07/22: Afebrile. Positive BM. Tolerating tube feeding. Noted switched tracheostomy to #6 Shiley cuffed fenestrated. Neurologically unchanged 07/23: Afebrile. Positive BM. Tolerating tube feeding. Questionable leak in exchange trach. Place back on a rate/ACV overnight. Insufflated seems to be doing better at the present time. Will check chest x-ray. Possible he might need #6 XLT versus replacement of chronic #8 Shiley. 07/24: Tolerating TP today, RR in low 30s patient appears comfortable. No acute events overnight 07/25: Remains off the ventilator more than 36 hours now. Intermittently tachypneic probably breathing. Chest x-ray was clear yesterday. No acute events reported overnight. PEG not functioning per RN 08/02: Patient was transferred back to critical care service due to continuing ventilator management, tachypnea. Patient clinical status with no significant change. Patient with low-grade fever 100.2, 08/03: Patient seen and examined today. No significant change in clinical status. Patient still with chronic tachypnea. Patient afebrile now. 08/04: Patient seen and examined today. No change in clinical status. Patient still continues to have chronic tachypnea. Patient afebrile. Continue vent weaning 08/05: Patient seen and examined today. Patient had chest tube removed yesterday , chest x-ray shows redevelopment of pneumothorax. Chest tube replaced. Otherwise, patient still on ventilator with tachypnea. Afebrile 08/06: Patient seen and examined today. Patient went to have chest tube placed, repeat chest x-ray did not indicate any pneumothorax. No overnight events. We' ll need to pursue LTAC placement 08/07 No events overnight. On ventilator via trach. Afebrile. 08/08 Patient tolerated CPAP x4 hrs yesterday. Afebrile. On no sedation. 08/09 No events overnight. Tolerated CPAP x 12 hrs yesterday. Afebrile. 08/10 Patient tolerated TP's x 12 hrs yesterday back on ACV overnight. 08/11 No events overnight, currently on TP's with 40% FIO2. Afebrile. 08/12 On CPAP 10/5. Tolerated Tpiece 3 hours earlier today. Afebrile. 08/13 On CPAP 10/5. Not tolerating CPAP as well over last few days and RT notes challenge with suctioning respiratory secretions adequately. Discussing with healthcare proxy regarding exchange trach to 8.0. 08/14 Nursing and RT staff having continued difficulty suctioning respiratory secretions via 6.0 tracheostomy. KAREN Garcia did not consent to stoma dilation and trach upsize yesterday but said she would call back and let me know but no return call. Contacted again today and left a message. Afebrile. On CPAP 10/5. Brow furrowing on exam, appears to be in pain but pain not localizable. Tolerating tube feeds, had BM yesterday 08/15 Not tolerating CPAP today. Contacted healthcare surrogate again and discussed need for trach change. She consented and trach was dilated and up- sized to 8.0 Distal XLT to facilitate pulmonary toilet and to address volume leak. 08/16 No events overnight. Remains on ventilator via trach. Afebrile. Tolerating TF. 08/17 No events overnight. Afebrile. 08/18 Patient tolerated CPAP x 4 hrs yesterday. Afebrile.On ventilator via trach. 08/19 On CPAP 25/06. Temp max 99.3 08/20 Stenotrophomonas in sputum, started on Levaquin per ID. Temp max 99.8. On CPAP 20/09. Tube feeds were held because PEG was clogged but now PEG is functioning. 08/21 No events overnight. Afebrile. Remains on ventilator via trach. Has been tolerating CPAP trials for last 2 days. 08/22 No events overnight. Afebrile , Has been on CPAP all night with PS: 20, PEEP; 5 and FIO2 35%. 08/23 No events overnight. Remains on CPAP, T:99.9 08/24 No events overnight. On CPAP PS 10, PEEP; 5 and FIO2 35% overnight. Afebrile. 08/25 No events overnight. Afebrile. On CPAP overnight with PS 8, PEEP: 5 and FIO2 35%, afebrile. Tolerating TF. 08/26 Tolerating Tpiece. 08/27 Tolerated Tpiece yesterday and overnight. However this evening desaturated and was placed back on CPAP. Dr. Mistry attempted to update daughter Radha Foreman and discuss his overall poor prognosis for recovery, but call got disconnected midway through call and could not reach her back 08/28 On PSV 10/5 40% today. Afebrile. 08/29 On CPAP overnight. Now on Tpiece 70% per pulmonology. Increased yellow secretions noted. Temp max 99.1 Nursing staff expresses concern that he appears uncomfortable during all nursing care. Called elsa Garcia to update , no answer, left message to call me. 08/30: On CPAP overnight. Currently on T piece at 45%. Currently afebrile. Positive BM. Tolerating tube feeding. 08/31: On CPAP overnight. Will return T piece at 35%. MAXIMUM TEMPERATURE 99.6. 5 bowel movements. Tolerating tube feeds. Neurological examination unchanged. 09/01: Tmax 99.2. Currently afebrile. Currently in TPs at 35%. 7 bowel movement overnight. Tolerating tube feeding. Subjective: 09/19: Halicat called secondary to aspiration on Gen. medical floor. Transfer to ICU and placed on mechanical ventilation. ABG shows CO2 retention. Etc. revealed no acute cardiac 20 finds however copious message to feed suctioned from trach tube 09/20 No events overnight. Afebrile. On ACV with RR 16, TV 500, PEEP: 5 and FIO2 40%. Objective - Vital Signs Date Time Temp Pulse Resp B/P Pulse Ox O2 Delivery O2 Flow Rate FiO2 09/21/15 10:06 95 40 09/21/15 10:00 73 09/21/15 08:00 97.9 16 145/53 09/21/15 08:00 Mechanical Ventilator 09/20/15 10:20 10.00 Intake and Output 09/20/15 09/20/15 09/21/15 08:00 16:00 00:00 Intake Total 1384 ml 0 ml 403 ml Output Total 400 ml 275 ml 403 ml Balance 984 ml -275 ml 0 ml Result Diagram: 09/21/15 0436 09/20/15 0813 Other Results Laboratory Tests Test 09/20/15 09/20/15 09/21/15 15:16 18:32 04:36 Blood Gas Puncture Site RT RADIAL LT RADIAL Blood Gas Patient Temperature 98.6 98.6 Blood Gas HCO3 43 mmol/L 42 mmol/L Blood Gas Base Excess 16.8 mmol/L 15.7 mmol/L Blood Gas Oxygen Saturation 89 % 96 % Arterial Blood pH 7.37 7.36 Arterial Blood Partial 77 mmHg 76 mmHg Pressure CO2 Arterial Blood Partial 66 mmHg 104 mmHg Pressure O2 Arterial Blood Oxygen Content 12.1 Vol % 15.2 Vol % Arterial Blood 1.8 % 1.3 % Carboxyhemoglobin Arterial Blood Methemoglobin 0.6 % 0.7 % Blood Gas Hemoglobin 9.6 G/DL 11.2 G/DL Oxygen Delivery Device TRACH TUBE VENTILATOR Blood Gas Liter Flow 9 L/M Blood Gas Inspired Oxygen 50 % 50 % Blood Gas Ventilator Setting 500/+5 White Blood Count 7.2 TH/MM3 Red Blood Count 3.49 MIL/MM3 Hemoglobin 9.0 GM/DL Hematocrit 29.7 % Mean Corpuscular Volume 85.1 FL Mean Corpuscular Hemoglobin 25.7 PG Mean Corpuscular Hemoglobin 30.2 % Concent Red Cell Distribution Width 14.9 % Platelet Count 162 TH/MM3 Mean Platelet Volume 9.5 FL Lactic Acid Level 1.8 mmol/L Imaging Last Impressions Chest X-Ray 09/21/15 0600 Signed Impressions: Service Date/Time: Monday, September 21, 2015 04:39 - CONCLUSION: No acute disease. Erlin Barajas MD Tunnelled Chest Tube Removal 08/05/15 1100 Signed Impressions: Service Date/Time: Wednesday, August 05, 2015 11:00 - CONCLUSION: Uncomplicated chest tube removal. Blaine Jackson MD Chest Tube Change 07/31/15 0000 Signed Impressions: Service Date/Time: Friday, July 31, 2015 14:34 - CONCLUSION: Uncomplicated reposition of previously placed chest tube as above. Blaine Jackson MD Chest Tube Insertion 07/30/15 0000 Signed Impressions: Service Date/Time: July 14:50 - CONCLUSION: Uncomplicated chest tube placement as above. Blaine Jackson MD Catheter Change 07/27/15 0000 Signed Impressions: Service Date/Time: Monday, July 27, 2015 14:43 - CONCLUSION: Uncomplicated gastrostomy tube exchange as above. Blaine Jackson MD Chest CT 07/11/15 0000 Signed Impressions: Service Date/Time: Saturday, July 11, 2015 09:49 - CONCLUSION: Scattered patchy densities significantly improved from previous study. Tiny anterior right basilar pneumothorax. Right-sided chest tube in good position. Néstor Matamoros MD Head CT 06/18/151902 Signed Impressions: Service Date/Time: June 19:31 - CONCLUSION: Diffuse atrophy unchanged. No acute intracranial findings. Kush Briscoe MD Abdomen/Pelvis CT 06/18/151902 Signed Impressions: Service Date/Time: June 19:36 - CONCLUSION: 1. Chronic nonspecific urinary bladder wall thickening. Bladder collapsed with Putnam catheter in place. 2. Chronic bilateral mid to lower lung zone groundglass opacity. 3. Nonobstructing left renal calculus. 4. Distended rectum. Kush Briscoe MD Objective Remarks GENERAL: 54-year-old male, cachectic, debilitated with contractures on ACV VT tracheostomy 40% HEENT: NC/AT. PERRL. MMM. OP without erythema or exudates NECK: No JVD. Supple. 8.0 Distal XLT trach in place CARDIAC: RRR. S1/S2. No S4. No murmurs, clicks gallops or rubs. LUNGS: B/L eqal air entry with few coarse BS ABDOMEN: S/NT/ND. Positive BS EXTREMITIES: 1+ dependent pedal edema. Contractures and deformities of fingers. Stage III coccyx/sacral decubitus ulcer NEUROLOGY: Patient with significant contractures of the bilat lower extremity, upper extremities. Eyes open spontaneously. Temporal and facial muscle wasting , muscular atrophy all extremities. Procedures 07/26- PEG replacement 07/29- right pigtail catheter placement for new pneumothorax 07/29 Date of Insertion: Jul 30, 2015 A/P Assessment and Plan Neuro/Psych: Parkinson's disease Cognitive disorder not otherwise specified Chronic encephalopathy Dementia Depression CT head 06/18/15: - diffuse atrophy unchanged. No acute intracranial findings Continue Sinemet 25/100 q8 via PEG, Seroquel 50 mg twice a day, olanzapine 5 mg a night, Klonopin 2 mg every 8 hours, Paxil 20 daily Continue Lortab when necessary pain and fentanyl patch 50 g every 3 days for pain management. Fentanyl bolus prn breakthrough pain or if needed for turning/ nursing care/etc. Resp: Acute on chronic respiratory failure Chronic trach #8 Shiley distal XLT Pneumonia - resolved Right pneumothorax status post pigtail catheter 2 (resolved) Continue with vent support keep sat >92% Ventilator bundle, pulm toilet, trach care Pulmonary Dr. Restrepo following. On Solu-Medrol 60 mg twice a day Exchanged to 8 Distal XLT on 08/15 to facilitate suctioning, trach care. Bronchodilators ( DuoNeb) every 6 hours rewritten CXR today: No acute disease. Cardiac History of orthostasis History of CAD History dyslipidemia History of hypertension Continue Midodrine 5 mg twice a day. On 2.5 twice a day at home Monitor HR and BP keep MAP>65mmHg. Lactic acid 1.8 GI: Chronic moderate protein energy malnutrition Dysphagia Status post PEG Internal hemorrhoids Gastroesophageal reflux disease - Restart TF- Jevity 1.5 at 60 cc an hour if KUB is negative. - Check KUB - Currently Prevacid 30 mg per PEG tube daily for GERD FEN/Renal: Nonobstructing left renal calculus - Monitor renal function, I/O's. electrolytes replacement per protocol. - d/c IVF, check BMP today ID: Candiduria (cele tropicalis urine cx 08/17) ESBL positive Klebsiella/Pseudomonas pneumonia Stenotrophomonas in sputum 08/17 MRSA colonization sepsis UTI Klebsiella ESBL positive (has been treated) S/p Diflucan 08/17-08/26 . Levaquin 08/20--08/26 for Stenotrophomonas. ID signed off, reconsult if needed. Completed course of meropenem for 08/11-08/20 for Klebsiella ESBL/pseudomonas pneumonia. On Lactinex tid On Clindamycin and Levaquin. Monitor for signs of infections ( Fever, WBC) follow up on BC and sputum cx from 09/19 Check UA with cx if indicated Pertinent cultures Urine cx 08/17 - cele tropicalis Blood culture 08/17 negative sputum culture 08/17 - pseudomonas and Stenotrophomonas maltophilia. Urine culture: 08/02 Klebsiella pneumonia ESBL positive Urine culture: 08/02 Cele Tropicalis, C. Glabrata Sputum culture: 08/02 Pseudomonas, Klebsiella pneumonia ESBL positive Blood culture: 08/02 yeast species, Cele glabrata, Cele tropicalis - History of Multidrug resistant UTI- ESBL 02/19/15 , MRSA + 03/20/15 - Cele glabrata in urine 03/19/15 - Rechecked blood, sputum and urine cultures 07/06 no growth - 06/17 - blood cultures 2 - CONS/staph epi - 06/17 - sputum - ESBL positive Klebsiella/Pseudomonas Treated 15 days with tobramycin aerosols twice a day. - 06/17 - urine - C. glabrata/tropicalis - treated with Diflucan Endo: Sliding-scale insulin if needed for glycemic control Heme Normocytic Anemia - Monitor CBC MSK Bilateral lower extremity Contractures Stage III sacral decubitus present on admission - Wound care evaluate and treat. Currently on Santyl daily with wet-to-dry changes. - Currently has recommended bed - Continue physical therapy Prophylaxis - GI - Prevacid - DVT - SCDs/ Lovenox. ACCESS: PIVs placed by vascular access team. Critical Care: The total critical care time was 35 minutes. Time to perform other separately billable procedures was not included in the critical care time. Antonio Carr MD Sep 21, 2015 10:49
--- NOTE | 2015-09-21 11:37 | HHI.HCPN ---
Reason for visit a. To assist with evaluation and management of symptoms including: dyspnea ; secretions. b. To assist medical decision maker(s) with: better understanding of current medical conditions; weighing benefits/burdens of medical treatment options; making medical treatment decisions. . Subjective/Interval History Patient seen and examined in ICU. No family at bedside. Left message for daughterRadha to return call for medical update. Ciarra called for aspiration on 09/20/15. Patient has been transferred back to ICU. On [facility] vent FiO2 40%. Hypotensive. Diaphoretic. Sputum and blood cultures pending. Tolerating tube feedings. Nursing pain level scores are "0." Continues on 50 mcg/hr fentanyl patch. No recent prn opiates given. No PRN Levsin since 09/20/15. From Dr. Pickard's initial palliative care consultation of 07/15/15... 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 The patient has had multiple hospitalizations which included stays in the intensive care unit for various infections. He had a urinary tract infection with multidrug resistant ESBL on 02/19/15. He was last MRSA positive on . jail notes from the facility indicate that his current baseline is: * Bedbound status * Unable to communicate * NPO -- on tube feedings at 85 cc /hr * Dependent for all ADLs In the emergency Department, initial vital signs were as follows > temperature 100.9; pulse 98; respiratory rate 38; blood pressure 104/61; pulse oximetry 99% on room air via trach collar. Initial physical examination the emergency department revealed the following > patient was frail and chronically ill-appearing. Skin showed no obvious wounds. Head, eyes, ENT, neck, cardiovascular, respiratory, gastrointestinal exams were unremarkable. Neurologically, the patient was unable to answer questions or respond or follow commands. Initial diagnostic testing revealed the following: * CBC showed WBC 16.4; hemoglobin 11.3; platelet count 176 * Coagulation profile showed PT 11.4; INR 1.1; PTT 29.4 * Chemistry profile showed sodium 141; potassium 4.5; chloride 105; CO2 27.4; anion gap 9; BUN 21; creatinine 0.85; estimated GFR 95; glucose 116; calcium 9.6 * Liver function tests showed total bilirubin 0.6; AST 23; ALT 38; alkaline phosphatase 59; total protein 7.5; albumen 3.2 * Urinalysis was remarkable for large occult blood; large leukocyte esterase; few bacteria; few yeast with hyphae; few budding yeast. * Arterial blood gases on trach mask at 40% showed pH 7.53; PCO2 33; PaO2 108; bicarbonate 27; base excess 4.2 * Chest x-ray showed no acute cardiopulmonary disease * Head CT showed diffuse atrophy unchanged from prior exam. * CT of the abdomen and pelvis showed chronic nonspecific urinary bladder wall thickening; bladder collapsed with Valdez catheter in place; chronic bilateral mid to lower lung zone groundglass opacity; nonobstructing left renal calculus; distended rectum. * The emergency room doctor diagnosed severe sepsis. The patient was given 2 L of IV fluid and broad-spectrum antibiotic-coated verge in the emergency department. Cultures were obtained. Valdez catheter was changed. As the patient was markedly tachypneic with increased work of breathing and use of accessory muscles during his stay in the emergency department. He was placed on CPAP and subsequently intubated and placed on mechanical ventilation. Critical care was consulted and the patient was admitted to the intensive care unit. Further examination revealed a stage II 6 x 2 cm sacral wound. Urine culture on admission grew out Heena of 2 different species. Sputum culture grew out Klebsiella pneumonia ESBL positive as well as pseudomonas. Blood culture grew out coag-negative staph and staph epidermidis. Both infectious disease and pulmonology were consulted. The patient slowly improved, was extubated, and critical care signed off on . However, on 07/06 the patient had to be placed back on the ventilator. A right sided pneumothorax was noted and patient underwent chest tube placement by interventional radiology. Pneumothorax has appeared to resolve on most recent chest x-ray. Sputum, blood, and urine cultures from 07/07/15 are all negative. White blood count is currently down to 7. Hemoglobin is 10.6. Albumen is suboptimal at 3.0. Renal function is normal. He is currently off anti-biotics. Current pain regimen includes the following: * Fentanyl patch; 50 g per hour * Morphine sulfate 5 mg sublingually or via the tube every 4 hours when necessary (he has been using 1-2 doses of this per day) The patient was tolerating CPAP earlier today and has since been removed from the ventilator and is on a T-piece at 40% FI02. At time of my visit, eyes are open. He intermittently tracks. He cannot follow commands and makes no attempt to interact. . Family/friend interactions Left message for daughterRadha to provide medical update. Requested return call. . Advance Directives Living Will: Never completed Health Care Surrogate: Copy in medical record Durable Power of Scrap Metal Collector: Never completed Advance Directive Specifics Date completed: Patient visited Scott Mack Scrap Metal [employer]or in March and again in November 2014. The patient was encouraged to complete Advance directive documents but never did them. Dr. Pickard personally called Mr. Mack ([phone]) to check for advance directives. Health Care Surrogate(s): The patient completed a health care surrogate document dated 09/02/14 desigating his friend Bola Nolasco as surrogate. Mr. Nolasco was not aware of this and has declined serving in that capacity. The patient has an adult daughter -- Radha Foreman who is willing to serve as health care proxy decision maker. Patient's motherTeresa is aware. Significant change in goals: FULL CODE. Goals remain aggressive. . Objective Vital Signs Date Time Temp Pulse Resp B/P Pulse Ox O2 Delivery O2 Flow Rate FiO2 09/21/15 10:06 95 40 09/21/15 10:00 73 09/21/15 08:00 75 09/21/15 08:00 97.9 75 16 145/53 95 09/21/15 08:00 95 Mechanical Ventilator 40 09/21/15 06:00 83 09/21/15 04:13 96 50 09/21/15 04:00 98.0 75 17 110/56 96 09/21/15 04:00 75 09/21/15 02:00 81 09/21/15 01:13 97 50 09/21/15 00:00 72 09/21/15 00:00 96.7 72 16 105/52 97 09/20/15 23:00 100 Mechanical Ventilator 50 09/20/15 22:00 78 09/20/15 21:29 99 50 09/20/15 20:00 74 09/20/15 20:00 97.2 74 16 107/52 100 09/20/15 16:26 100 50 09/20/15 15:03 Trach Collar 09/20/15 14:45 97.8 96 28 92/54 90 09/20/15 12:00 98.8 89 22 102/64 92 Intake & Output 09/21/15 09/21/15 07:00 19:00 Intake Total 1115 ml Output Total 803 ml Balance 312 ml IV Total 1115 ml Output Urine Total 803 ml # Bowel Movements 1 Physical Exam CONSTITUTIONAL/GENERAL: This is a thin, pale, contracted, chronically ill appearing male on [facility] vent to trach. Unresponsive. TUBES/LINES/DRAINS: Trach; condom cath, PEG tube; scd's SKIN: No jaundice, rashes, or lesions. Sacral wound, not visualized today. Diaphoretic. NECK: Tracheostomy to vent. CARDIOVASCULAR: Regular rate and rhythm without murmurs, gallops, or rubs. No JVD. Peripheral pulses symmetric. RESPIRATORY/CHEST: Scattered crackles. Breath sounds equal bilaterally and diminished at bases. GASTROINTESTINAL: Abdomen soft, non-tender, nondistended. No guarding. Bowel sounds present. GENITOURINARY: Without palpable bladder distension. Condom catheter in place. MUSCULOSKELETAL: Extremities without clubbing, cyanosis, or edema. Contractures noted. No mottlin . NEUROLOGICAL: Does not open eyes to voice or command. Unresponsive. Unable to follow even simple commands. No spontaneous movements seen. PSYCHIATRIC: Unresponsive. . Diagnostic Tests Laboratory Laboratory Tests Test 09/20/15 09/20/15 09/20/15 09/21/15 08:13 15:16 18:32 04:36 White Blood Count 9.6 TH/MM3 7.2 TH/MM3 (4.0-11.0) (4.0-11.0) Red Blood Count 3.58 MIL/MM3 3.49 MIL/MM3 (4.50-5.90) (4.50-5.90) Hemoglobin 9.3 GM/DL 9.0 GM/DL (13.0-17.0) (13.0-17.0) Hematocrit 30.6 % 29.7 % (39.0-51.0) (39.0-51.0) Mean Corpuscular Volume 85.5 FL 85.1 FL (80.0-100.0) (80.0-100.0) Mean Corpuscular Hemoglobin 25.9 PG 25.7 PG (27.0-34.0) (27.0-34.0) Mean Corpuscular Hemoglobin 30.3 % 30.2 % Concent (32.0-36.0) (32.0-36.0) Red Cell Distribution Width 15.1 % 14.9 % (11.6-17.2) (11.6-17.2) Platelet Count 178 TH/MM3 162 TH/MM3 (150-450) (150-450) Mean Platelet Volume 9.7 FL 9.5 FL (7.0-11.0) (7.0-11.0) Neutrophils (%) (Auto) 67.7 % (16.0-70.0) Lymphocytes (%) (Auto) 13.3 % (9.0-44.0) Monocytes (%) (Auto) 8.2 % (0.0-8.0) Eosinophils (%) (Auto) 10.4 % (0.0-4.0) Basophils (%) (Auto) 0.4 % (0.0-2.0) Neutrophils # (Auto) 6.5 TH/MM3 (1.8-7.7) Lymphocytes # (Auto) 1.3 TH/MM3 (1.0-4.8) Monocytes # (Auto) 0.8 TH/MM3 (0-0.9) Eosinophils # (Auto) 1.0 TH/MM3 (0-0.4) Basophils # (Auto) 0.0 TH/MM3 (0-0.2) CBC Comment DIFF FINAL Differential Comment Sodium Level 140 MEQ/L (136-145) Potassium Level 4.3 MEQ/L (3.5-5.1) Chloride Level 95 MEQ/L (98-107) Carbon Dioxide Level 41.4 MEQ/L (21.0-32.0) Anion Gap 4 MEQ/L (5-15) Blood Urea Nitrogen 20 MG/DL (7-18) Creatinine 0.43 MG/DL (0.60-1.30) Estimat Glomerular Filtration 208 ML/MIN Rate (>89) Random Glucose 133 MG/DL (74-106) Calcium Level 9.2 MG/DL (8.5-10.1) Blood Gas Puncture Site RT RADIAL LT RADIAL Blood Gas Patient Temperature 98.6 98.6 Blood Gas HCO3 43 mmol/L 42 mmol/L (22-26) (22-26) Blood Gas Base Excess 16.8 mmol/L 15.7 mmol/L (-2-2) (-2-2) Blood Gas Oxygen Saturation 89 % (90-100) 96 % (90-100) Arterial Blood pH 7.37 7.36 (7.380-7.420) (7.380-7.420) Arterial Blood Partial 77 mmHg (38-42) 76 mmHg (38-42) Pressure CO2 Arterial Blood Partial 66 mmHg 104 mmHg Pressure O2 (61-120) (61-120) Arterial Blood Oxygen Content 12.1 Vol % 15.2 Vol % (12.0-20.0) (12.0-20.0) Arterial Blood 1.8 % (0-4) 1.3 % (0-4) Carboxyhemoglobin Arterial Blood Methemoglobin 0.6 % (0-2) 0.7 % (0-2) Blood Gas Hemoglobin 9.6 G/DL 11.2 G/DL (12.0-16.0) (12.0-16.0) Oxygen Delivery Device TRACH TUBE VENTILATOR Blood Gas Liter Flow 9 L/M Blood Gas Inspired Oxygen 50 % 50 % Blood Gas Ventilator Setting AC/16/500/+5 Lactic Acid Level 1.8 mmol/L (0.4-2.0) Result Diagram: 09/21/15 0436 09/20/15 0813 Microbiology Microbiology Date/Time Procedure Status Source Growth 09/20/15 18:35 Gram Stain - Final Resulted Sputum Endotracheal 09/20/15 18:35 Sputum Culture Resulted Sputum Endotracheal Pending 09/20/15 21:20 Aerobic Blood Culture - Preliminary Resulted Blood Peripheral NO GROWTH IN 1 DAY 09/20/15 21:20 Anaerobic Blood Culture - Preliminary Resulted Blood Peripheral NO GROWTH IN 1 DAY 09/20/15 21:27 Aerobic Blood Culture - Preliminary Resulted Blood Peripheral NO GROWTH IN 1 DAY 09/20/15 21:27 Anaerobic Blood Culture - Preliminary Resulted Blood Peripheral NO GROWTH IN 1 DAY . Imaging Last Impressions Chest X-Ray 09/21/15 0600 Signed Impressions: Service Date/Time: Monday, September 21, 2015 04:39 - CONCLUSION: No acute disease. Erlin Barajas MD Tunnelled Chest Tube Removal 08/05/15 1100 Signed Impressions: Service Date/Time: Wednesday, August 05, 2015 11:00 - CONCLUSION: Uncomplicated chest tube removal. Blaine Jackson MD Chest Tube Change 07/31/15 0000 Signed Impressions: Service Date/Time: Friday, July 31, 2015 14:34 - CONCLUSION: Uncomplicated reposition of previously placed chest tube as above. Blaine Jackson MD Chest Tube Insertion 07/30/15 0000 Signed Impressions: Service Date/Time: July 14:50 - CONCLUSION: Uncomplicated chest tube placement as above. Blaine Jackson MD Catheter Change 07/27/15 0000 Signed Impressions: Service Date/Time: Monday, July 27, 2015 14:43 - CONCLUSION: Uncomplicated gastrostomy tube exchange as above. Blaine Jackson MD Chest CT 07/11/15 0000 Signed Impressions: Service Date/Time: Saturday, July 11, 2015 09:49 - CONCLUSION: Scattered patchy densities significantly improved from previous study. Tiny anterior right basilar pneumothorax. Right-sided chest tube in good position. Néstor Matamoros MD Head CT 06/18/151902 Signed Impressions: Service Date/Time: June 19:31 - CONCLUSION: Diffuse atrophy unchanged. No acute intracranial findings. Kush Briscoe MD Abdomen/Pelvis CT 06/18/151902 Signed Impressions: Service Date/Time: June 19:36 - CONCLUSION: 1. Chronic nonspecific urinary bladder wall thickening. Bladder collapsed with Valdez catheter in place. 2. Chronic bilateral mid to lower lung zone groundglass opacity. 3. Nonobstructing left renal calculus. 4. Distended rectum. Kush Briscoe MD . Procedures * Mechanical ventilation * Chest tube placement on right 07/07/15 * Chest tube removal 07/17/15 . Assessment and Plan Disease Oriented Problem List: (1) Acute respiratory failure Comment: 09/20/15 - Halicat for aspiration - Back on mech vent in ICU. . (2) Chronic respiratory failure (3) Septic shock (4) Pneumonia Comment: Aspiration. Repeat cultures pending. . (5) UTI (urinary tract infection) Comment: Repeat culture pending. . (6) Parkinson disease (7) Moderate malnutrition Symptom Scale: (1) Pain 0-10 Scale: Unable to quantify Comment: Sources of pain might include wound, prolonged bedbound status, contractures, restraints, valdez, vascular access catheters. Appears comfortable on current regimen. ,l (2) Dyspnea 0-10 Scale: Unable to quantify Comment: On mech vent. . (3) Malnutrition 0-10 Scale: Unable to quantify Comment: Tolerating tube feedings. (4) Encephalopathy 0-10 Scale: Unable to quantify Comment: Remains unresponsive. (5) Increased tracheal secretions 0-10 Scale: Unable to quantify Comment: PRN Levsin available. Pertinent Non-Medical Issues Psychosocial: half-way correction resident. 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 Severe dementia. Daughter, mother, and brother are involved. Spiritual: Anglican. Has been a member for the [facility] jain and members have provided both community support and spiritual support in the past. Legal: No advance directives. Daughter (Radha Foreman) is legal proxy and lives 4 hours away. She can be quite difficult to contact by phone. Ethical issues impacting care: None. . Important Contacts * Radha Foreman (daughter and proxy) [phone] * Teresa Perea (mother -- lives in [place]) [phone] . Prognosis Patient has end stage Parkinson's with end stage dementia. He is a residential NH resident and has required multiple hospitalizations for sepsis. He is a chronic trach/PEG tube patient with contractures and skin breakdown. Should family continue to want aggressive care, he will continue to go back and forth from facility to hospital until such time that we are no longer able to overcome the sepsis. Patient is hospice eligible whenever family is ready to transition to "comfort measures only." . Code Status: Full Code Plan * Decision making: Patient is incapacitated and will not regain capacity. There is no designated health care surrogate. Daughter, Radha Foreman, is legal proxy under [place] statutes but can be hard to contact at times. * FULL CODE * 09/21/15 - Left message for daughter, Radha via telephone to provide medical update. Requested return call. * Pain: Sources of pain are unclear as patient in non communicative, but would include prolonged bedbound status; tubes and lines; contractures; wound; etc. Current regimen appears to adequate . No further recommendations at this time. * Dyspnea: Dyspnea due to aspiration pneumonia. Has previously been challenging to get off vent. * Malnutrition: Tolerating tube feeds, but albumin remains low. * Secretions: PRN Levsin available. Remains high risk for aspiration due to secretions and tube feeding. * Palliative care will try and meet with Radha (proxy) in person when she next comes to visit. She continues to insist on aggressive goals in spite of the incredibly bleak prognosis. . . . Attestation To help prompt me to consider important information that might be impacting today's encounter and assessment, information from prior notes written by myself or my colleagues may have been "brought forward" into today's note. My signature on this note, however, is an attestation that I personally performed the exam, history, and/or decision-making noted today, and, unless otherwise indicated, the interactions with patient, family, and staff as well as the review of records all occurred today. I also attest that the listed assessment and stated plan reflect my best clinical judgment today based on the combination of historical information, prior notes, and today's exam/ interactions. When time spent is documented, it refers only to time spent today by the signer, or if indicated, combined time spent today by collaborating physician/nurse practitioner. . ALOK JONES Sep 21, 2015 11:37
--- NOTE | 2015-09-21 12:10 | RADRPT ---
EXAM DATE/TIME: 09/21/2015 11:31 [facility] COMPARISON: ABDOMEN KUB ONLY, January 02, 2015, 16:50. INDICATIONS : Ileus MEDICAL HISTORY : None. SURGICAL HISTORY : None. ENCOUNTER: Subsequent ACUITY: 1 week PAIN SCORE: Non-responsive. LOCATION: Bilateral Abdomen FINDINGS: A single frontal view of the abdomen is obliqued towards the patient's right. Gas-filled loops of non dilated large and small bowel are observed. A gastrostomy tube is seen with contrast filling the ball oon. Orthopedic screws are seen involving the left hip. CONCLUSION: Normal bowel gas pattern. Tai Taylor Jr., MD on September 21, 2015 at 12:06 Board Certified Radiologist. This report was verified electronically.
--- NOTE | 2015-09-21 13:04 | HHI.PR ---
Subjective Remarks On vent support. Back to ICU for poss Aspiration. few secretions in trach. On IV antibiotic. Neuro status same..On tube feeds. CXR only shows chronic changes. Objective Vital Signs Date Time Temp Pulse Resp B/P Pulse Ox O2 Delivery O2 Flow Rate FiO2 09/21/15 12:00 67 09/21/15 12:00 97.6 67 17 118/58 96 09/21/15 10:06 95 40 09/21/15 10:00 73 09/21/15 08:00 75 09/21/15 08:00 97.9 75 16 145/53 95 09/21/15 08:00 95 Mechanical Ventilator 40 09/21/15 06:00 83 09/21/15 04:13 96 50 09/21/15 04:00 98.0 75 17 110/56 96 09/21/15 04:00 75 09/21/15 02:00 81 09/21/15 01:13 97 50 09/21/15 00:00 72 09/21/15 00:00 96.7 72 16 105/52 97 09/20/15 23:00 100 Mechanical Ventilator 50 09/20/15 22:00 78 09/20/15 21:29 99 50 09/20/15 20:00 74 09/20/15 20:00 97.2 74 16 107/52 100 09/20/15 16:26 100 50 09/20/15 15:03 Trach Collar 09/20/15 14:45 97.8 96 28 92/54 90 I/O 09/20/15 09/20/15 09/20/15 09/21/15 09/21/15 09/21/15 07:00 15:00 23:00 07:00 15:00 23:00 Intake Total 1384 ml 0 ml 403 ml 712 ml Output Total 400 ml 275 ml 403 ml 400 ml Balance 984 ml -275 ml 0 ml 312 ml Intake Oral 0 ml 0 ml IV Total 0 ml 403 ml 712 ml Tube Feeding 1384 ml Output Urine Total 400 ml 275 ml 403 ml 400 ml # Bowel Movements 1 0 1 Result Diagram: 09/21/15 0436 09/20/15 0813 Objective Remarks This is a thin white male who is unresponsive ,with a trach tube in place. HEENT: Pupils are equal and reactive to light. CHEST:Decreased breath sounds with few Basal crackles heard. CARDIOVASCULAR: S1 and S2 is normal. ABDOMEN: Soft, nondistended. BS +. He has a PEG tube in place. EXTREMITIES: No edema.muscle wasting. ulcer over sacrum. NEURO: Lethargic and has weak extremities .Reflexes not elicited. Assessment and Plan Assessment and Plan IMPRESSION 1. Respiratory failure, resolving 2. Sepsis, resolving. 3. UTI 4. Tracheobronchitis 5. Parkinson's disease 6. Dementia. 7. Severe Deconditioning. Plan : 1. Cont Cpap 06/17, FIO2 35 % from 8 am to 8 pm. 2. Nebs qid , duoneb. 3. Cont Tube feeds at 60 CC 4. IMV rate 12 at HS , FIO2 35 %. 5. Antibiotics per ID. 6. Cont Trach toilet and lavage. 8. No sedation. Darren Kiser MD Sep 21, 2015 13:04
[2015-09-21 13:10] LABS: BICARBONATE 31.3 MEQ/L (21.0-32.0); MAGNESIUM 2.5 MG/DL (1.5-2.5)
[2015-09-21] MEDS: LEVOFLOXACIN 500 MG PREMIX INJ 100 ML IV SCH (17:12)
[2015-09-21] MEDS: ENOXAPARIN SODIUM 40 MG/0.4 ML SYRINGE SQ SCH (20:22)
[2015-09-21] MEDS: OLANZapine 5 MG TAB GT SCH (20:23)
[2015-09-22] VITALS (19 sets, daily range): BP systolic 102–125; BP diastolic 56–65; PULSE 64–90; RESP 16–22; TEMP 97.7–98.5; O2SAT 94–99
[2015-09-22] MEDS: RESP: ALBUTEROL 2.5 MG/IPRATROPIUM 0.5 MG NEB (SCH) NEB ×4 (03:25→20:07)
[2015-09-22] MEDS: CARBIDOPA/LEVODOPA 25 MG/100 MG TAB GT SCH ×3 (05:59→21:28)
[2015-09-22] MEDS: clonazePAM 1 MG TAB PO SCH ×3 (05:59→21:28)
[2015-09-22] MEDS: CLINDAMYCIN INJ 900 MG in SODIUM CHLORIDE 0.9% INJ 100 ML IV SCH ×3 (06:00→21:27)
--- NOTE | 2015-09-22 07:43 | HHI.CCPN ---
Subjective Remarks/Hospital Course 06/17: Pt is a 54 yr man with multiple medial problems including Parkinson's disease, advanced dementia, hyponatremia, anxiety, pneumonia, GERD, cognitive disorder, and multidrug resistant UTI- ESBL02/19/15 , who resides in a [facility]. Pt by report was found by staff in [facility] to be less alert and having respiratory difficultly and fevers. Pt was brought to ED adn placed on ventilator. His workup was inclusive of labs, chest xray and ct head and abd/pelvis. WBC 16.4, +UTI, lactic acid 4, troponin ,0.02, BUN/ cre 18/ 0.76. CT head 06/18/15: diffuse atrophy unchanged. No acute intracranial findings ct abd/ pelvis with IV contrast: 06/18/15 Conclusion: 1. Chronic nonspecific urinary bladder wall thickening. Bladder collapsed with Putnam catheter in place. 2.Chronic bilateral mid to lower zone groundglass opacity. 3. Nonobstructing left renal calculus. 4. Distended rectum Pt admitted and fluid and abx ordered. 06/18: Drowsy, easily arousable. On mechanical ventilation via tracheostomy. Tachypneic. Resting tremor noted. 06/19: Drowsy, arousable. On mechanical ventilation via tracheostomy. 06/20: Drowsy, arousable. Remains on mechanical ventilation via tracheostomy. We'll repeat blood cultures, UA and urine cultures. Fluconazole IV added in view of yeast in urine. 07/06: Reconsulted as patient return to the ventilator on a right ventricular due to tachypnea. Low-grade temperatures. Tolerating tube feeding. Extremity encephalopathic demented patient with difficult neurological examination. 07/07: Status post chest tube placement by IR for right pneumothorax 07/06. Afebrile. Tolerating tube feeds. Positive BM. Currently tachypneic on the ventilator. Does not appear to be any acute distress. 07/08: Afebrile. Tolerating tube feeding. He is comfortable currently on CPAP trials 11/10. Positive BM. 07/09: Afebrile. Tolerating tube feeding. Appears comfortable on T bar. Positive BM. 07/10: Afebrile. Eyes are open. Remained on T piece overnight. Tolerating tube feeding. 07/11: MAXIMUM TEMPERATURE 100. Currently 98.6. Eyes are open. On ACV overnight secondary to "tachypnea and sweating". Switching back to PSV trials today. Goal is T piece during daytime, CPAP at night. 07/12: No acute events overnight. On PSV 15/5 -attempt TP up to 6 hours today. No pneumothorax on chest x-ray 07/13: Placed back on full ventilator support for tachypnea. Otherwise clinically unchanged. No fever today 07/14: Patient was on T piece yesterday evening, placed back on PSV overnight, patient mechanical ventilation this morning. Patient appears to be struggling with mechanical ventilation. Patient placed back on PSV with improvement 07/15: Patient placed back on mechanical ventilation last evening due to respiratory rate. It was indicated patient was tachypnea can the 40s. Patient on mechanical ventilation this time with respiration rate mid 20s. Chest tube still in place without any output, chest x-ray still indicating resolution of pneumothorax. 07/16: Patient seen and examined today. Patient placed back on mechanical ventilation overnight due to respiratory rate. Even on mechanical ventilation patient has respiration rate in the 30s. Patient afebrile, blood pressure stable. Continue vent weaning 07/17: Patient seen and examined. Currently afebrile. Currently on CPAP 15/5 @ 40%. Patient is awake with open mouth resting in bed in no apparent acute distress. Tolerating tube feeding. 2 bowel movements. 07/18: No neurological changes. Afebrile. 2 bowel moments. Tolerating tube feeding. We'll attempt TP trials today. On CPAP since 07/15 07/19 No events overnight. On CPAP with PS: 10, PEEP: 5 and FIO2 35%. Afebrile. On no sedation. 07/20 No events overnight. Tolerating CPAP. Afebrile. 07/21: Remains on CPAP. Attempt T piece trial today. Afebrile. One bowel movement. Tolerating tube feeding. 07/22: Afebrile. Positive BM. Tolerating tube feeding. Noted switched tracheostomy to #6 Shiley cuffed fenestrated. Neurologically unchanged 07/23: Afebrile. Positive BM. Tolerating tube feeding. Questionable leak in exchange trach. Place back on a rate/ACV overnight. Insufflated seems to be doing better at the present time. Will check chest x-ray. Possible he might need #6 XLT versus replacement of chronic #8 Shiley. 07/24: Tolerating TP today, RR in low 30s patient appears comfortable. No acute events overnight 07/25: Remains off the ventilator more than 36 hours now. Intermittently tachypneic probably breathing. Chest x-ray was clear yesterday. No acute events reported overnight. PEG not functioning per RN 08/02: Patient was transferred back to critical care service due to continuing ventilator management, tachypnea. Patient clinical status with no significant change. Patient with low-grade fever 100.2, 08/03: Patient seen and examined today. No significant change in clinical status. Patient still with chronic tachypnea. Patient afebrile now. 08/04: Patient seen and examined today. No change in clinical status. Patient still continues to have chronic tachypnea. Patient afebrile. Continue vent weaning 08/05: Patient seen and examined today. Patient had chest tube removed yesterday , chest x-ray shows redevelopment of pneumothorax. Chest tube replaced. Otherwise, patient still on ventilator with tachypnea. Afebrile 08/06: Patient seen and examined today. Patient went to have chest tube placed, repeat chest x-ray did not indicate any pneumothorax. No overnight events. We' ll need to pursue LTAC placement 08/07 No events overnight. On ventilator via trach. Afebrile. 08/08 Patient tolerated CPAP x4 hrs yesterday. Afebrile. On no sedation. 08/09 No events overnight. Tolerated CPAP x 12 hrs yesterday. Afebrile. 08/10 Patient tolerated TP's x 12 hrs yesterday back on ACV overnight. 08/11 No events overnight, currently on TP's with 40% FIO2. Afebrile. 08/12 On CPAP 10/5. Tolerated Tpiece 3 hours earlier today. Afebrile. 08/13 On CPAP 10/5. Not tolerating CPAP as well over last few days and RT notes challenge with suctioning respiratory secretions adequately. Discussing with healthcare proxy regarding exchange trach to 8.0. 08/14 Nursing and RT staff having continued difficulty suctioning respiratory secretions via 6.0 tracheostomy. KAREN Garcia did not consent to stoma dilation and trach upsize yesterday but said she would call back and let me know but no return call. Contacted again today and left a message. Afebrile. On CPAP 10/5. Brow furrowing on exam, appears to be in pain but pain not localizable. Tolerating tube feeds, had BM yesterday 08/15 Not tolerating CPAP today. Contacted healthcare surrogate again and discussed need for trach change. She consented and trach was dilated and up- sized to 8.0 Distal XLT to facilitate pulmonary toilet and to address volume leak. 08/16 No events overnight. Remains on ventilator via trach. Afebrile. Tolerating TF. 08/17 No events overnight. Afebrile. 08/18 Patient tolerated CPAP x 4 hrs yesterday. Afebrile.On ventilator via trach. 08/19 On CPAP 25/06. Temp max 99.3 08/20 Stenotrophomonas in sputum, started on Levaquin per ID. Temp max 99.8. On CPAP 20/09. Tube feeds were held because PEG was clogged but now PEG is functioning. 08/21 No events overnight. Afebrile. Remains on ventilator via trach. Has been tolerating CPAP trials for last 2 days. 08/22 No events overnight. Afebrile , Has been on CPAP all night with PS: 20, PEEP; 5 and FIO2 35%. 08/23 No events overnight. Remains on CPAP, T:99.9 08/24 No events overnight. On CPAP PS 10, PEEP; 5 and FIO2 35% overnight. Afebrile. 08/25 No events overnight. Afebrile. On CPAP overnight with PS 8, PEEP: 5 and FIO2 35%, afebrile. Tolerating TF. 08/26 Tolerating Tpiece. 08/27 Tolerated Tpiece yesterday and overnight. However this evening desaturated and was placed back on CPAP. Dr. Mistry attempted to update daughter Radha Foreman and discuss his overall poor prognosis for recovery, but call got disconnected midway through call and could not reach her back 08/28 On PSV 10/5 40% today. Afebrile. 08/29 On CPAP overnight. Now on Tpiece 70% per pulmonology. Increased yellow secretions noted. Temp max 99.1 Nursing staff expresses concern that he appears uncomfortable during all nursing care. Called elsa Garcia to update , no answer, left message to call me. 08/30: On CPAP overnight. Currently on T piece at 45%. Currently afebrile. Positive BM. Tolerating tube feeding. 08/31: On CPAP overnight. Will return T piece at 35%. MAXIMUM TEMPERATURE 99.6. 5 bowel movements. Tolerating tube feeds. Neurological examination unchanged. 09/01: Tmax 99.2. Currently afebrile. Currently in TPs at 35%. 7 bowel movement overnight. Tolerating tube feeding. Subjective: 09/19: Halicat called secondary to aspiration on Gen. medical floor. Transfer to ICU and placed on mechanical ventilation. ABG shows CO2 retention. Etc. revealed no acute cardiac 20 finds however copious message to feed suctioned from trach tube 09/20 No events overnight. Afebrile. On ACV with RR 16, TV 500, PEEP: 5 and FIO2 40%. 09/21 No events overnight. Afebrile. Objective - Vital Signs Date Time Temp Pulse Resp B/P Pulse Ox O2 Delivery O2 Flow Rate FiO2 09/22/15 06:00 79 09/22/15 04:03 95 35 09/22/15 04:00 98.2 19 125/59 09/21/15 23:00 Mechanical Ventilator 09/20/15 10:20 10.00 Intake and Output 09/21/15 09/21/15 09/22/15 08:00 16:00 00:00 Intake Total 712 ml 901 ml 553 ml Output Total 400 ml 750 ml 700 ml Balance 312 ml 151 ml -147 ml Result Diagram: 09/21/15 0436 09/21/15 1116 Other Results Laboratory Tests Test 09/21/15 11:16 Sodium Level 141 MEQ/L Potassium Level 4.0 MEQ/L Chloride Level 97 MEQ/L Carbon Dioxide Level 31.3 MEQ/L Anion Gap 13 MEQ/L Blood Urea Nitrogen 22 MG/DL Creatinine 0.36 MG/DL Estimat Glomerular Filtration 255 ML/MIN Rate Random Glucose 145 MG/DL Calcium Level 9.2 MG/DL Phosphorus Level 3.3 MG/DL Magnesium Level 2.5 MG/DL Imaging Last Impressions Chest X-Ray 09/21/15 0600 Signed Impressions: Service Date/Time: Monday, September 21, 2015 04:39 - CONCLUSION: No acute disease. Erlin Barajas MD Abdomen X-Ray 09/21/15 0000 Signed Impressions: Service Date/Time: Monday, September 21, 2015 11:31 - CONCLUSION: Normal bowel gas pattern. Tai Taylor Jr., MD Tunnelled Chest Tube Removal 08/05/15 1100 Signed Impressions: Service Date/Time: Wednesday, August 05, 2015 11:00 - CONCLUSION: Uncomplicated chest tube removal. Blaine Jackson MD Chest Tube Change 07/31/15 0000 Signed Impressions: Service Date/Time: Friday, July 31, 2015 14:34 - CONCLUSION: Uncomplicated reposition of previously placed chest tube as above. Blaine Jackson MD Chest Tube Insertion 07/30/15 0000 Signed Impressions: Service Date/Time: July 14:50 - CONCLUSION: Uncomplicated chest tube placement as above. Blaine Jackson MD Catheter Change 07/27/15 0000 Signed Impressions: Service Date/Time: Monday, July 27, 2015 14:43 - CONCLUSION: Uncomplicated gastrostomy tube exchange as above. Blaine Jackson MD Chest CT 07/11/15 0000 Signed Impressions: Service Date/Time: Saturday, July 11, 2015 09:49 - CONCLUSION: Scattered patchy densities significantly improved from previous study. Tiny anterior right basilar pneumothorax. Right-sided chest tube in good position. Néstor Matamoros MD Head CT 06/18/151902 Signed Impressions: Service Date/Time: June 19:31 - CONCLUSION: Diffuse atrophy unchanged. No acute intracranial findings. Kush Briscoe MD Abdomen/Pelvis CT 06/18/151902 Signed Impressions: Service Date/Time: June 19:36 - CONCLUSION: 1. Chronic nonspecific urinary bladder wall thickening. Bladder collapsed with Putnam catheter in place. 2. Chronic bilateral mid to lower lung zone groundglass opacity. 3. Nonobstructing left renal calculus. 4. Distended rectum. Kush Briscoe MD Objective Remarks GENERAL: 54-year-old male, cachectic, debilitated with contractures on ACV VT tracheostomy 35% HEENT: NC/AT. PERRL. MMM. OP without erythema or exudates NECK: No JVD. Supple. 8.0 [address]al XLT trach in place CARDIAC: RRR. S1/S2. No S4. No murmurs, clicks gallops or rubs. LUNGS: B/L eqal air entry with few coarse BS ABDOMEN: S/NT/ND. Positive BS EXTREMITIES: 1+ dependent pedal edema. Contractures and deformities of fingers. Stage III coccyx/sacral decubitus ulcer NEUROLOGY: Patient with significant contractures of the bilat lower extremity, upper extremities. Eyes open spontaneously. Temporal and facial muscle wasting , muscular atrophy all extremities. Procedures 07/26- PEG replacement 07/29- right pigtail catheter placement for new pneumothorax 07/29 Date of Insertion: Jul 30, 2015 A/P Assessment and Plan Neuro/Psych: Parkinson's disease Cognitive disorder not otherwise specified Chronic encephalopathy Dementia Depression On no sedation, monitor neuro status CT head 06/18/15: - diffuse atrophy unchanged. No acute intracranial findings Continue Sinemet 25/100 q8 via PEG, Seroquel 50 mg twice a day, olanzapine 5 mg a night, Klonopin 2 mg every 8 hours, Paxil 20 daily Continue Lortab when necessary pain and fentanyl patch 50 g every 3 days for pain management. Fentanyl bolus prn breakthrough pain or if needed for turning/ nursing care/etc. Resp: Acute on chronic respiratory failure Chronic trach #8 Shiley distal XLT Pneumonia - resolved Right pneumothorax status post pigtail catheter 2 (resolved) Continue with vent support keep sat >92% Ventilator bundle, pulm toilet, trach care, CPAP trials as steven. Pulmonary Dr. Restrepo following. On Solu-Medrol 60 mg BID Exchanged to 8 Distal XLT on 08/15 to facilitate suctioning, trach care. Bronchodilators ( DuoNeb) CXR 09/20: No acute disease. Cardiac History of orthostasis History of CAD History dyslipidemia History of hypertension Continue Midodrine 5 mg twice a day. On 2.5 twice a day at home Monitor HR and BP keep MAP>65mmHg. Lactic acid 1.8 GI: Chronic moderate protein energy malnutrition Dysphagia Status post PEG Internal hemorrhoids Gastroesophageal reflux disease - On TF- Jevity 1.5 advance to goal rate 60 cc an hour - KUB: normal bowel gas pattern - Currently Prevacid 30 mg per PEG tube daily for GERD FEN/Renal: Nonobstructing left renal calculus - Monitor renal function, I/O's. electrolytes replacement per protocol. ID: Candiduria (cele tropicalis urine cx 08/17) ESBL positive Klebsiella/Pseudomonas pneumonia Stenotrophomonas in sputum 08/17 MRSA colonization sepsis UTI Klebsiella ESBL positive (has been treated) S/p Diflucan 08/17-08/26 . Levaquin 08/20--08/26 for Stenotrophomonas. ID signed off, reconsult if needed. Completed course of meropenem for 08/11-08/20 for Klebsiella ESBL/pseudomonas pneumonia. On Lactinex tid On Clindamycin and Levaquin. Monitor for signs of infections ( Fever, WBC) follow up on BC and sputum cx from 09/19 Pertinent cultures Urine cx 08/17 - cele tropicalis Blood culture 08/17 negative sputum culture 08/17 - pseudomonas and Stenotrophomonas maltophilia. Urine culture: 08/02 Klebsiella pneumonia ESBL positive Urine culture: 08/02 Cele Tropicalis, C. Glabrata Sputum culture: 08/02 Pseudomonas, Klebsiella pneumonia ESBL positive Blood culture: 08/02 yeast species, Cele glabrata, Cele tropicalis - History of Multidrug resistant UTI- ESBL 02/19/15 , MRSA + 03/20/15 - Cele glabrata in urine 03/19/15 - Rechecked blood, sputum and urine cultures 07/06 no growth - 06/17 - blood cultures 2 - CONS/staph epi - 06/17 - sputum - ESBL positive Klebsiella/Pseudomonas Treated 15 days with tobramycin aerosols twice a day. - 06/17 - urine - C. glabrata/tropicalis - treated with Diflucan Endo: Sliding-scale insulin if needed for glycemic control Heme Normocytic Anemia - Monitor CBC MSK Bilateral lower extremity Contractures Stage III sacral decubitus present on admission - Wound care evaluate and treat. Currently on Santyl daily with wet-to-dry changes. - Continue physical therapy Prophylaxis - GI - Prevacid - DVT - SCDs/ Lovenox. ACCESS: PIVs Check labs today Critical Care: The total critical care time was 30 minutes. Time to perform other separately billable procedures was not included in the critical care time. Antonio Carr MD Sep 22, 2015 07:43
[2015-09-22] MEDS: GABAPENTIN 300 MG CAP G-TUBE SCH ×2 (07:47→21:28)
[2015-09-22] MEDS: MIDODRINE 5 MG TAB G-TUBE SCH ×2 (07:48→21:28)
[2015-09-22] MEDS: LACTOBACILLUS ACIDOPHILUS TAB PO SCH ×3 (07:48→17:19)
[2015-09-22] MEDS: QUEtiapine FUMARATE 25 MG TAB G-TUBE SCH ×2 (07:48→21:28)
[2015-09-22] MEDS: PARoxetine HCL 20 MG TAB G-TUBE SCH (07:48)
[2015-09-22] MEDS: methylPREDNISolone SOD SUCC 125 MG/2 ML VIAL IV PUSH SCH ×2 (07:48→21:29)
[2015-09-22] MEDS: LANSOPRAZOLE SOLUTAB 30 MG TAB NG SCH (07:48)
[2015-09-22] MEDS: SODIUM CHLORIDE 0.9% FLUSH 5 ML FLUSH IVF SCH ×2 (07:49→21:29)
[2015-09-22] MEDS: COLLAGENASE OINT 30 GM TUBE TOP SCH (07:50)
[2015-09-22] MEDS: ARTIFICIAL TEARS OPTH SOLN 15 ML BTL EACH EYE SCH ×3 (07:50→17:19)
[2015-09-22] MEDS: CHLORHEXIDINE 0.12% (ORAL KIT) 15 ML CUP MT SCH ×2 (07:50→20:00)
[2015-09-22 08:53] LABS: AUTOMATED NEUTROPHIL # 9.7 TH/MM3 (1.8-7.7); HEMATOCRIT 27.1 % (39.0-51.0); HEMO FLAGS DIFF FINAL; LYMPH % 6.5 % (9.0-44.0); LYMPHOCYTE # 0.7 TH/MM3 (1.0-4.8); MEAN CELL VOLUME 82.8 FL (80.0-100.0); MEAN CORPUSCULAR HEMOGLOBIN 26.5 PG (27.0-34.0); MONO % 4.3 % (0.0-8.0); NEUT % 89.2 % (16.0-70.0); PLATELET COUNT 179 TH/MM3 (150-450); RED BLOOD COUNT 3.27 MIL/MM3 (4.50-5.90); RED CELL DISTRIBUTION WIDTH 15.2 % (11.6-17.2); WHITE BLOOD COUNT 10.9 TH/MM3 (4.0-11.0)
[2015-09-22 09:09] LABS: BICARBONATE 34.3 MEQ/L (21.0-32.0); POTASSIUM 3.6 MEQ/L (3.5-5.1)
--- NOTE | 2015-09-22 17:20 | HHI.HCPN ---
Left another message for daughterRadha to return call to provide medical update. Awaiting return call. . ALOK JONES Sep 22, 2015 17:20
[2015-09-22 17:28] LABS: BACTERIA, URINE OCC /hpf; BLOOD, URINE NEG (NEG); CALCIUM OXALATE CRYSTALS,URINE FEW /hpf; GLUCOSE,URINE NEG (NEG); HYALINE CAST, URINE 4 /lpf (RARE); KETONE, URINE NEG (NEG); MUCUS URINE MOD /lpf (OCC); NITRITE,URINE NEG (NEG); SQUAMOUS EPITHELIAL CELL URINE <1 /hpf (0-5); URINE COLOR YELLOW (YELLW/STRAW)
[2015-09-22 17:31] LABS: COMMENT (UR) CATH-CULTURE IND; CULTURE IF INDICATED CATH CULTURE IND
--- NOTE | 2015-09-22 18:00 | HHI.PR ---
Subjective Remarks On vent support. Back to ICU for poss Aspiration. few secretions in trach. On IV antibiotic. Neuro status same.On tube feeds. Tolerates it. CXR only shows chronic changes. Objective Vital Signs Date Time Temp Pulse Resp B/P Pulse Ox O2 Delivery O2 Flow Rate FiO2 09/22/15 16:00 97.9 84 22 109/56 96 09/22/15 16:00 84 09/22/15 15:25 95 35 09/22/15 15:00 77 09/22/15 15:00 95 Mechanical Ventilator 35 09/22/15 13:15 96 35 09/22/15 12:00 79 09/22/15 12:00 98.1 79 22 116/65 94 09/22/15 10:00 90 09/22/15 08:48 99 35 09/22/15 08:00 98.5 79 20 119/59 95 09/22/15 08:00 79 09/22/15 08:00 95 Mechanical Ventilator 35 09/22/15 06:00 79 09/22/15 04:03 95 35 09/22/15 04:00 98.2 77 19 125/59 95 09/22/15 04:00 77 09/22/15 02:00 71 09/22/15 01:03 95 35 09/22/15 00:00 73 09/22/15 00:00 97.9 73 22 102/58 94 09/21/15 23:00 93 Mechanical Ventilator 40 09/21/15 22:00 88 09/21/15 21:17 98 35 09/21/15 20:00 97.6 83 20 117/58 97 09/21/15 20:00 83 09/21/15 18:00 91 I/O 09/21/15 09/21/15 09/21/15 09/22/15 09/22/15 09/22/15 07:00 15:00 23:00 07:00 15:00 23:00 Intake Total 712 ml 901 ml 553 ml 310 ml 382 ml Output Total 400 ml 750 ml 700 ml 250 ml 650 ml Balance 312 ml 151 ml -147 ml 60 ml -268 ml IV Total 712 ml 901 ml 302 ml 190 ml 97 ml Tube Feeding 131 ml 120 ml 165 ml Other 120 ml 120 ml Output Urine Total 400 ml 750 ml 700 ml 250 ml 650 ml # Bowel Movements 1 0 0 1 1 Result Diagram: 09/22/15 0840 09/22/15 0840 Objective Remarks This is a thin white male who is unresponsive ,with a trach tube in place. HEENT: Pupils are equal and reactive to light. CHEST:Decreased breath sounds with few Basal crackles heard. CARDIOVASCULAR: S1 and S2 is normal. ABDOMEN: Soft, nondistended. BS +. He has a PEG tube in place. EXTREMITIES: No edema.muscle wasting. ulcer over sacrum. NEURO: Lethargic and has weak extremities .Reflexes not elicited. Assessment and Plan Assessment and Plan IMPRESSION 1. Respiratory failure, resolving 2. Sepsis, resolving. 3. UTI 4. Tracheobronchitis 5. Parkinson's disease 6. Dementia. 7. Severe Deconditioning. Plan : 1. Cont Cpap 06/17, FIO2 35 % from 8 am to 8 pm. 2. Nebs qid , duoneb. 3. Cont Tube feeds at 60 CC 4. IMV rate 10 at HS , FIO2 35 %. 5. Antibiotics per ID. 6. Cont Trach toilet and lavage. 8. No sedation. Darren Kiser MD Sep 22, 2015 18:00
[2015-09-22] MEDS: OLANZapine 5 MG TAB GT SCH (21:28)
[2015-09-22] MEDS: ENOXAPARIN SODIUM 40 MG/0.4 ML SYRINGE SQ SCH (21:28)
[2015-09-23] VITALS (20 sets, daily range): BP systolic 118–134; BP diastolic 52–72; PULSE 73–100; RESP 16–28; TEMP 98.5–100.3; O2SAT 91–100
[2015-09-23] MEDS: RESP: ALBUTEROL 2.5 MG/IPRATROPIUM 0.5 MG NEB (SCH) NEB ×4 (03:12→19:36)
[2015-09-23] MEDS: CARBIDOPA/LEVODOPA 25 MG/100 MG TAB GT SCH ×3 (05:33→20:20)
[2015-09-23] MEDS: clonazePAM 1 MG TAB PO SCH ×3 (05:33→20:21)
[2015-09-23] MEDS: CLINDAMYCIN INJ 900 MG in SODIUM CHLORIDE 0.9% INJ 100 ML IV SCH (05:33)
[2015-09-23 05:38] LABS: AUTOMATED NEUTROPHIL # 10.2 TH/MM3 (1.8-7.7); HEMATOCRIT 29.6 % (39.0-51.0); HEMO FLAGS DIFF FINAL; LYMPH % 4.3 % (9.0-44.0); LYMPHOCYTE # 0.5 TH/MM3 (1.0-4.8); MEAN CELL VOLUME 82.3 FL (80.0-100.0); MEAN CORPUSCULAR HEMOGLOBIN 26.4 PG (27.0-34.0); MEAN CORPUSCULAR HGB CONC 32.1 % (32.0-36.0); MONO % 2.6 % (0.0-8.0); NEUT % 93.1 % (16.0-70.0); PLATELET COUNT 187 TH/MM3 (150-450); RED CELL DISTRIBUTION WIDTH 15.5 % (11.6-17.2); WHITE BLOOD COUNT 10.9 TH/MM3 (4.0-11.0)
[2015-09-23 06:00] LABS: BICARBONATE 37.5 MEQ/L (21.0-32.0); POTASSIUM 3.6 MEQ/L (3.5-5.1)
--- NOTE | 2015-09-23 08:15 | HHI.CCPN ---
Subjective Remarks/Hospital Course 06/17: Pt is a 54 yr man with multiple medial problems including Parkinson's disease, advanced dementia, hyponatremia, anxiety, pneumonia, GERD, cognitive disorder, and multidrug resistant UTI- ESBL02/19/15 , who resides in a intermediate. Pt by report was found by staff in intermediate to be less alert and having respiratory difficultly and fevers. Pt was brought to ED adn placed on ventilator. His workup was inclusive of labs, chest xray and ct head and abd/pelvis. WBC 16.4, +UTI, lactic acid 4, troponin ,0.02, BUN/ cre 18/ 0.76. CT head 06/18/15: diffuse atrophy unchanged. No acute intracranial findings ct abd/ pelvis with IV contrast: 06/18/15 Conclusion: 1. Chronic nonspecific urinary bladder wall thickening. Bladder collapsed with Putnam catheter in place. 2.Chronic bilateral mid to lower zone groundglass opacity. 3. Nonobstructing left renal calculus. 4. Distended rectum Pt admitted and fluid and abx ordered. 06/18: Drowsy, easily arousable. On mechanical ventilation via tracheostomy. Tachypneic. Resting tremor noted. 06/19: Drowsy, arousable. On mechanical ventilation via tracheostomy. 06/20: Drowsy, arousable. Remains on mechanical ventilation via tracheostomy. We'll repeat blood cultures, UA and urine cultures. Fluconazole IV added in view of yeast in urine. 07/06: Reconsulted as patient return to the ventilator on a right ventricular due to tachypnea. Low-grade temperatures. Tolerating tube feeding. Extremity encephalopathic demented patient with difficult neurological examination. 07/07: Status post chest tube placement by IR for right pneumothorax 07/06. Afebrile. Tolerating tube feeds. Positive BM. Currently tachypneic on the ventilator. Does not appear to be any acute distress. 07/08: Afebrile. Tolerating tube feeding. He is comfortable currently on CPAP trials 11/10. Positive BM. 07/09: Afebrile. Tolerating tube feeding. Appears comfortable on T bar. Positive BM. 07/10: Afebrile. Eyes are open. Remained on T piece overnight. Tolerating tube feeding. 07/11: MAXIMUM TEMPERATURE 100. Currently 98.6. Eyes are open. On ACV overnight secondary to "tachypnea and sweating". Switching back to PSV trials today. Goal is T piece during daytime, CPAP at night. 07/12: No acute events overnight. On PSV 15/5 -attempt TP up to 6 hours today. No pneumothorax on chest x-ray 07/13: Placed back on full ventilator support for tachypnea. Otherwise clinically unchanged. No fever today 07/14: Patient was on T piece yesterday evening, placed back on PSV overnight, patient mechanical ventilation this morning. Patient appears to be struggling with mechanical ventilation. Patient placed back on PSV with improvement 07/15: Patient placed back on mechanical ventilation last evening due to respiratory rate. It was indicated patient was tachypnea can the 40s. Patient on mechanical ventilation this time with respiration rate mid 20s. Chest tube still in place without any output, chest x-ray still indicating resolution of pneumothorax. 07/16: Patient seen and examined today. Patient placed back on mechanical ventilation overnight due to respiratory rate. Even on mechanical ventilation patient has respiration rate in the 30s. Patient afebrile, blood pressure stable. Continue vent weaning 07/17: Patient seen and examined. Currently afebrile. Currently on CPAP 15/5 @ 40%. Patient is awake with open mouth resting in bed in no apparent acute distress. Tolerating tube feeding. 2 bowel movements. 07/18: No neurological changes. Afebrile. 2 bowel moments. Tolerating tube feeding. We'll attempt TP trials today. On CPAP since 07/15 07/19 No events overnight. On CPAP with PS: 10, PEEP: 5 and FIO2 35%. Afebrile. On no sedation. 07/20 No events overnight. Tolerating CPAP. Afebrile. 07/21: Remains on CPAP. Attempt T piece trial today. Afebrile. One bowel movement. Tolerating tube feeding. 07/22: Afebrile. Positive BM. Tolerating tube feeding. Noted switched tracheostomy to #6 Shiley cuffed fenestrated. Neurologically unchanged 07/23: Afebrile. Positive BM. Tolerating tube feeding. Questionable leak in exchange trach. Place back on a rate/ACV overnight. Insufflated seems to be doing better at the present time. Will check chest x-ray. Possible he might need #6 XLT versus replacement of chronic #8 Shiley. 07/24: Tolerating TP today, RR in low 30s patient appears comfortable. No acute events overnight 07/25: Remains off the ventilator more than 36 hours now. Intermittently tachypneic probably breathing. Chest x-ray was clear yesterday. No acute events reported overnight. PEG not functioning per RN 08/02: Patient was transferred back to critical care service due to continuing ventilator management, tachypnea. Patient clinical status with no significant change. Patient with low-grade fever 100.2, 08/03: Patient seen and examined today. No significant change in clinical status. Patient still with chronic tachypnea. Patient afebrile now. 08/04: Patient seen and examined today. No change in clinical status. Patient still continues to have chronic tachypnea. Patient afebrile. Continue vent weaning 08/05: Patient seen and examined today. Patient had chest tube removed yesterday , chest x-ray shows redevelopment of pneumothorax. Chest tube replaced. Otherwise, patient still on ventilator with tachypnea. Afebrile 08/06: Patient seen and examined today. Patient went to have chest tube placed, repeat chest x-ray did not indicate any pneumothorax. No overnight events. We' ll need to pursue LTAC placement 08/07 No events overnight. On ventilator via trach. Afebrile. 08/08 Patient tolerated CPAP x4 hrs yesterday. Afebrile. On no sedation. 08/09 No events overnight. Tolerated CPAP x 12 hrs yesterday. Afebrile. 08/10 Patient tolerated TP's x 12 hrs yesterday back on ACV overnight. 08/11 No events overnight, currently on TP's with 40% FIO2. Afebrile. 08/12 On CPAP 10/5. Tolerated Tpiece 3 hours earlier today. Afebrile. 08/13 On CPAP 10/5. Not tolerating CPAP as well over last few days and RT notes challenge with suctioning respiratory secretions adequately. Discussing with healthcare proxy regarding exchange trach to 8.0. 08/14 Nursing and RT staff having continued difficulty suctioning respiratory secretions via 6.0 tracheostomy. KAREN Garcia did not consent to stoma dilation and trach upsize yesterday but said she would call back and let me know but no return call. Contacted again today and left a message. Afebrile. On CPAP 10/5. Brow furrowing on exam, appears to be in pain but pain not localizable. Tolerating tube feeds, had BM yesterday 08/15 Not tolerating CPAP today. Contacted healthcare surrogate again and discussed need for trach change. She consented and trach was dilated and up- sized to 8.0 Distal XLT to facilitate pulmonary toilet and to address volume leak. 08/16 No events overnight. Remains on ventilator via trach. Afebrile. Tolerating TF. 08/17 No events overnight. Afebrile. 08/18 Patient tolerated CPAP x 4 hrs yesterday. Afebrile.On ventilator via trach. 08/19 On CPAP 25/06. Temp max 99.3 08/20 Stenotrophomonas in sputum, started on Levaquin per ID. Temp max 99.8. On CPAP 20/09. Tube feeds were held because PEG was clogged but now PEG is functioning. 08/21 No events overnight. Afebrile. Remains on ventilator via trach. Has been tolerating CPAP trials for last 2 days. 08/22 No events overnight. Afebrile , Has been on CPAP all night with PS: 20, PEEP; 5 and FIO2 35%. 08/23 No events overnight. Remains on CPAP, T:99.9 08/24 No events overnight. On CPAP PS 10, PEEP; 5 and FIO2 35% overnight. Afebrile. 08/25 No events overnight. Afebrile. On CPAP overnight with PS 8, PEEP: 5 and FIO2 35%, afebrile. Tolerating TF. 08/26 Tolerating Tpiece. 08/27 Tolerated Tpiece yesterday and overnight. However this evening desaturated and was placed back on CPAP. Dr. Mistry attempted to update daughter Radha Foreman and discuss his overall poor prognosis for recovery, but call got disconnected midway through call and could not reach her back 08/28 On PSV 10/5 40% today. Afebrile. 08/29 On CPAP overnight. Now on Tpiece 70% per pulmonology. Increased yellow secretions noted. Temp max 99.1 Nursing staff expresses concern that he appears uncomfortable during all nursing care. Called elsa Garcia to update , no answer, left message to call me. 08/30: On CPAP overnight. Currently on T piece at 45%. Currently afebrile. Positive BM. Tolerating tube feeding. 08/31: On CPAP overnight. Will return T piece at 35%. MAXIMUM TEMPERATURE 99.6. 5 bowel movements. Tolerating tube feeds. Neurological examination unchanged. 09/01: Tmax 99.2. Currently afebrile. Currently in TPs at 35%. 7 bowel movement overnight. Tolerating tube feeding. Subjective: 09/19: Halicat called secondary to aspiration on Gen. medical floor. Transfer to ICU and placed on mechanical ventilation. ABG shows CO2 retention. Etc. revealed no acute cardiac 20 finds however copious message to feed suctioned from trach tube 09/20 No events overnight. Afebrile. On ACV with RR 16, TV 500, PEEP: 5 and FIO2 40%. 09/21 No events overnight. Afebrile. 09/22 No events overnight. Tolerated CPAP all day yesterday with PS 12, PEEP:5 and FIO2 35%. Afebrile. Objective - Vital Signs Date Time Temp Pulse Resp B/P Pulse Ox O2 Delivery O2 Flow Rate FiO2 09/23/15 07:35 100 35 09/23/15 06:00 85 09/23/15 04:00 99.5 21 122/65 09/23/15 04:00 Mechanical Ventilator 09/20/15 10:20 10.00 Intake and Output 09/22/15 09/22/15 09/23/15 08:00 16:00 00:00 Intake Total 310 ml 382 ml 516 ml Output Total 250 ml 650 ml Balance 60 ml -268 ml 516 ml Result Diagram: 09/23/15 0516 09/23/15 0516 Other Results Laboratory Tests Test 09/22/15 09/22/15 09/23/15 08:40 15:00 05:16 White Blood Count 10.9 TH/MM3 10.9 TH/MM3 Red Blood Count 3.27 MIL/MM3 3.60 MIL/MM3 Hemoglobin 8.7 GM/DL 9.5 GM/DL Hematocrit 27.1 % 29.6 % Mean Corpuscular Volume 82.8 FL 82.3 FL Mean Corpuscular Hemoglobin 26.5 PG 26.4 PG Mean Corpuscular Hemoglobin 32.0 % 32.1 % Concent Red Cell Distribution Width 15.2 % 15.5 % Platelet Count 179 TH/MM3 187 TH/MM3 Mean Platelet Volume 9.6 FL 9.7 FL Neutrophils (%) (Auto) 89.2 % 93.1 % Lymphocytes (%) (Auto) 6.5 % 4.3 % Monocytes (%) (Auto) 4.3 % 2.6 % Eosinophils (%) (Auto) 0.0 % 0.0 % Basophils (%) (Auto) 0.0 % 0.0 % Neutrophils # (Auto) 9.7 TH/MM3 10.2 TH/MM3 Lymphocytes # (Auto) 0.7 TH/MM3 0.5 TH/MM3 Monocytes # (Auto) 0.5 TH/MM3 0.3 TH/MM3 Eosinophils # (Auto) 0.0 TH/MM3 0.0 TH/MM3 Basophils # (Auto) 0.0 TH/MM3 0.0 TH/MM3 CBC Comment DIFF FINAL DIFF FINAL Differential Comment Sodium Level 142 MEQ/L 144 MEQ/L Potassium Level 3.6 MEQ/L 3.6 MEQ/L Chloride Level 99 MEQ/L 100 MEQ/L Carbon Dioxide Level 34.3 MEQ/L 37.5 MEQ/L Anion Gap 9 MEQ/L 7 MEQ/L Blood Urea Nitrogen 28 MG/DL 30 MG/DL Creatinine 0.38 MG/DL 0.49 MG/DL Estimat Glomerular Filtration 240 ML/MIN 179 ML/MIN Rate Random Glucose 140 MG/DL 210 MG/DL Calcium Level 8.6 MG/DL 9.0 MG/DL Urine Color YELLOW Urine Turbidity HAZY Urine pH 6.0 Urine Specific [place] 1.023 Urine Protein TRACE mg/dL Urine Glucose (UA) NEG mg/dL Urine Ketones NEG mg/dL Urine Occult Blood NEG Urine Nitrite NEG Urine Bilirubin NEG Urine Urobilinogen LESS THAN 2.0 MG/DL Urine Leukocyte Esterase LARGE Urine RBC LESS THAN 1 /hpf Urine WBC 32 /hpf Urine Squamous Epithelial <1 /hpf Cells Urine Calcium Oxalate Crystals FEW /hpf Urine Bacteria OCC /hpf Urine Hyaline Casts 4 /lpf Urine Mucus MOD /lpf Urine Yeast with Hyphae OCC Urine Yeast (Budding) OCC Microscopic Urinalysis Comment CATH-CULTURE IND Imaging Last Impressions Chest X-Ray 09/21/15 0600 Signed Impressions: Service Date/Time: Monday, September 21, 2015 04:39 - CONCLUSION: No acute disease. Erlin Barajas MD Abdomen X-Ray 09/21/15 0000 Signed Impressions: Service Date/Time: Monday, September 21, 2015 11:31 - CONCLUSION: Normal bowel gas pattern. Tai Taylor Jr., MD Tunnelled Chest Tube Removal 08/05/15 1100 Signed Impressions: Service Date/Time: Wednesday, August 05, 2015 11:00 - CONCLUSION: Uncomplicated chest tube removal. Blaine Jackson MD Chest Tube Change 07/31/15 0000 Signed Impressions: Service Date/Time: Friday, July 31, 2015 14:34 - CONCLUSION: Uncomplicated reposition of previously placed chest tube as above. Blaine Jackson MD Chest Tube Insertion 07/30/15 0000 Signed Impressions: Service Date/Time: July 14:50 - CONCLUSION: Uncomplicated chest tube placement as above. Blaine Jackson MD Catheter Change 07/27/15 0000 Signed Impressions: Service Date/Time: Monday, July 27, 2015 14:43 - CONCLUSION: Uncomplicated gastrostomy tube exchange as above. Blaine Jackson MD Chest CT 07/11/15 0000 Signed Impressions: Service Date/Time: Saturday, July 11, 2015 09:49 - CONCLUSION: Scattered patchy densities significantly improved from previous study. Tiny anterior right basilar pneumothorax. Right-sided chest tube in good position. Néstor Matamoros MD Head CT 06/18/151902 Signed Impressions: Service Date/Time: June 19:31 - CONCLUSION: Diffuse atrophy unchanged. No acute intracranial findings. Kush Briscoe MD Abdomen/Pelvis CT 06/18/151902 Signed Impressions: Service Date/Time: June 19:36 - CONCLUSION: 1. Chronic nonspecific urinary bladder wall thickening. Bladder collapsed with Putnam catheter in place. 2. Chronic bilateral mid to lower lung zone groundglass opacity. 3. Nonobstructing left renal calculus. 4. Distended rectum. Kush Briscoe MD Objective Remarks GENERAL: 54-year-old male, cachectic, debilitated with contractures on ACV VT tracheostomy 35% HEENT: NC/AT. PERRL. MMM. OP without erythema or exudates NECK: No JVD. Supple. 8.0 [address] XLT trach in place CARDIAC: RRR. S1/S2. No S4. No murmurs, clicks gallops or rubs. LUNGS: B/L eqal air entry with few coarse BS ABDOMEN: S/NT/ND. Positive BS EXTREMITIES: 1+ dependent pedal edema. Contractures and deformities of fingers. Stage III coccyx/sacral decubitus ulcer NEUROLOGY: Patient with significant contractures of the bilat lower extremity, upper extremities. Eyes open spontaneously. Temporal and facial muscle wasting , muscular atrophy all extremities. Procedures 07/26- PEG replacement 07/29- right pigtail catheter placement for new pneumothorax 07/29 Date of Insertion: Jul 30, 2015 A/P Assessment and Plan Neuro/Psych: Parkinson's disease Cognitive disorder not otherwise specified Chronic encephalopathy Dementia Depression On no sedation, monitor neuro status CT head 06/18/15: - diffuse atrophy unchanged. No acute intracranial findings Continue Sinemet 25/100 q8 via PEG, Seroquel 50 mg twice a day, olanzapine 5 mg a night, Klonopin 2 mg every 8 hours, Paxil 20 daily Continue Lortab when necessary pain and fentanyl patch 50 g every 3 days for pain management. Fentanyl bolus prn breakthrough pain or if needed for turning/ nursing care/etc. Resp: Acute on chronic respiratory failure Chronic trach #8 Shiley distal XLT Pneumonia - resolved Right pneumothorax status post pigtail catheter 2 (resolved) Continue with vent support keep sat >92% Ventilator bundle, pulm toilet, trach care, CPAP trials as steven. Pulmonary Dr. Restrepo following. On Solu-Medrol 60 mg BID Exchanged to 8 Distal XLT on 08/15 to facilitate suctioning, trach care. Bronchodilators ( DuoNeb) CXR 09/20: No acute disease. Cardiac History of orthostasis History of CAD History dyslipidemia History of hypertension Continue Midodrine 5 mg twice a day. On 2.5 twice a day at home Monitor HR and BP keep MAP>65mmHg. Lactic acid 1.8 GI: Chronic moderate protein energy malnutrition Dysphagia Status post PEG Internal hemorrhoids Gastroesophageal reflux disease - On TF- Jevity 1.5 @60 cc an hour - KUB: normal bowel gas pattern - Currently Prevacid 30 mg per PEG tube daily for GERD FEN/Renal: Nonobstructing left renal calculus - Monitor renal function, I/O's. electrolytes replacement per protocol. ID: Sputum cx: GNR Candiduria (cele tropicalis urine cx 08/17) ESBL positive Klebsiella/Pseudomonas pneumonia Stenotrophomonas in sputum 08/17 MRSA colonization sepsis UTI Klebsiella ESBL positive (has been treated) S/p Diflucan 08/17-08/26 . Levaquin 08/20--08/26 for Stenotrophomonas. ID signed off, reconsult if needed. Completed course of meropenem for 08/11-08/20 for Klebsiella ESBL/pseudomonas pneumonia. On Lactinex tid D/C Clindamycin, off Levaquin. Monitor off abx for signs of infections ( Fever , WBC) sputum cx - 09/19: GNR ? colonized, CXR 09/20: No acute disease Pertinent cultures Urine cx 08/17 - cele tropicalis Blood culture 08/17 negative sputum culture 08/17 - pseudomonas and Stenotrophomonas maltophilia. Urine culture: 08/02 Klebsiella pneumonia ESBL positive Urine culture: 08/02 Cele Tropicalis, C. Glabrata Sputum culture: 08/02 Pseudomonas, Klebsiella pneumonia ESBL positive Blood culture: 08/02 yeast species, Cele glabrata, Cele tropicalis - History of Multidrug resistant UTI- ESBL 02/19/15 , MRSA + 03/20/15 - Cele glabrata in urine 03/19/15 - Rechecked blood, sputum and urine cultures 07/06 no growth - 06/17 - blood cultures 2 - CONS/staph epi - 06/17 - sputum - ESBL positive Klebsiella/Pseudomonas Treated 15 days with tobramycin aerosols twice a day. - 06/17 - urine - C. glabrata/tropicalis - treated with Diflucan Endo: Sliding-scale insulin if needed for glycemic control Heme Normocytic Anemia - Monitor CBC MSK Bilateral lower extremity Contractures Stage III sacral decubitus present on admission - Wound care evaluate and treat. Currently on Santyl daily with wet-to-dry changes. - Continue physical therapy Prophylaxis - GI - Prevacid - DVT - SCDs/ Lovenox. ACCESS: PIVs Check labs today Critical Care: The total critical care time was 30 minutes. Time to perform other separately billable procedures was not included in the critical care time. Antonio Carr MD Sep 23, 2015 08:15
[2015-09-23] MEDS: LACTOBACILLUS ACIDOPHILUS TAB PO SCH ×3 (08:50→17:45)
[2015-09-23] MEDS: QUEtiapine FUMARATE 25 MG TAB G-TUBE SCH ×2 (08:50→20:21)
[2015-09-23] MEDS: GABAPENTIN 300 MG CAP G-TUBE SCH ×2 (08:50→20:21)
[2015-09-23] MEDS: methylPREDNISolone SOD SUCC 125 MG/2 ML VIAL IV PUSH SCH ×2 (08:50→20:21)
[2015-09-23] MEDS: MIDODRINE 5 MG TAB G-TUBE SCH ×2 (08:50→20:20)
[2015-09-23] MEDS: SODIUM CHLORIDE 0.9% FLUSH 5 ML FLUSH IVF SCH ×2 (08:50→20:21)
[2015-09-23] MEDS: LANSOPRAZOLE SOLUTAB 30 MG TAB NG SCH (08:50)
[2015-09-23] MEDS: PARoxetine HCL 20 MG TAB G-TUBE SCH (08:50)
[2015-09-23] MEDS: ARTIFICIAL TEARS OPTH SOLN 15 ML BTL EACH EYE SCH ×3 (08:50→17:45)
[2015-09-23] MEDS: CHLORHEXIDINE 0.12% (ORAL KIT) 15 ML CUP MT SCH ×2 (08:50→20:20)
[2015-09-23] MEDS: COLLAGENASE OINT 30 GM TUBE TOP SCH (12:37)
[2015-09-23] MEDS: HYOSCYAMINE SOLN 0.125 MG/ML 15 ML BTL PO PRN (12:38)
--- NOTE | 2015-09-23 17:42 | HHI.PR ---
Subjective Remarks On vent support. Back to ICU for poss Aspiration. On IV antibiotic. Tolerated CPAP all day. Neuro status same.On tube feeds. Tolerates it. CXR only shows chronic changes. Objective Vital Signs Date Time Temp Pulse Resp B/P Pulse Ox O2 Delivery O2 Flow Rate FiO2 09/23/15 16:37 95 35 09/23/15 16:00 35 09/23/15 16:00 98.7 85 18 134/66 97 09/23/15 16:00 85 09/23/15 14:00 90 09/23/15 13:37 100 35 09/23/15 12:00 74 09/23/15 12:00 35 09/23/15 12:00 99.1 74 20 129/72 97 09/23/15 10:00 85 09/23/15 09:56 93 35 09/23/15 09:53 35 09/23/15 09:50 35 09/23/15 08:00 98.9 91 20 118/52 97 09/23/15 08:00 35 09/23/15 08:00 91 09/23/15 07:35 100 35 09/23/15 06:00 85 09/23/15 04:05 98 35 09/23/15 04:00 100 09/23/15 04:00 99.5 100 21 122/65 98 09/23/15 04:00 98 Mechanical Ventilator 35 09/23/15 02:00 75 09/23/15 01:00 95 35 09/23/15 00:00 91 Mechanical Ventilator 35 09/23/15 00:00 98.5 73 16 120/62 91 09/23/15 00:00 73 09/22/15 22:09 97 35 09/22/15 22:00 76 09/22/15 20:00 64 09/22/15 20:00 97 Mechanical Ventilator 35 09/22/15 20:00 97.7 64 16 118/64 97 09/22/15 19:30 97 35 09/22/15 18:00 70 I/O 09/22/15 09/22/15 09/22/15 09/23/15 09/23/15 09/23/15 07:00 15:00 23:00 07:00 15:00 23:00 Intake Total 310 ml 382 ml 516 ml 536 ml 1132 ml Output Total 250 ml 650 ml 550 ml 450 ml Balance 60 ml -268 ml 516 ml -14 ml 682 ml Intake Oral 0 ml 0 ml IV Total 190 ml 97 ml 274 ml 68 ml 201 ml Tube Feeding 120 ml 165 ml 122 ml 348 ml 691 ml Other 120 ml 120 ml 120 ml 240 ml Output Urine Total 250 ml 650 ml 550 ml 450 ml # Voids 0 # Bowel Movements 1 1 1 1 2 Result Diagram: 09/23/1516 09/23/1516 Objective Remarks This is a thin white male who is unresponsive ,with a trach tube in place. HEENT: Pupils are equal and reactive to light. Throat dry. CHEST:Decreased breath sounds with few Basal crackles heard. CARDIOVASCULAR: S1 and S2 is normal. ABDOMEN: Soft, nondistended. BS +. He has a PEG tube in place. EXTREMITIES: No edema.muscle wasting. ulcer over sacrum. NEURO: Lethargic and has weak extremities .Reflexes not elicited. Assessment and Plan Assessment and Plan IMPRESSION 1. Respiratory failure, resolving 2. Sepsis, resolving. 3. UTI 4. Tracheobronchitis 5. Parkinson's disease 6. Dementia. 7. Severe Deconditioning. Plan : 1. Cont Cpap 06/17, FIO2 35 % all the time. 2. Nebs qid , duoneb. 3. Cont Tube feeds at 60 CC 4. Chest X ray in am. 5. Antibiotics per ID. 6. Cont Trach toilet and lavage. 8. No sedation. Darren Kiser MD Sep 23, 2015 17:41
[2015-09-23] MEDS: OLANZapine 5 MG TAB GT SCH (20:20)
[2015-09-23] MEDS: ENOXAPARIN SODIUM 40 MG/0.4 ML SYRINGE SQ SCH (20:21)
[2015-09-24] VITALS (18 sets, daily range): BP systolic 121–141; BP diastolic 62–75; PULSE 63–84; RESP 18–23; TEMP 97.9–99.2; O2SAT 92–100
[2015-09-24] MEDS: RESP: ALBUTEROL 2.5 MG/IPRATROPIUM 0.5 MG NEB (SCH) NEB ×4 (03:49→19:57)
[2015-09-24 05:41] LABS: AUTOMATED NEUTROPHIL # 11.8 TH/MM3 (1.8-7.7); BASOPHIL % 0.3 % (0.0-2.0); HEMATOCRIT 29.9 % (39.0-51.0); HEMO FLAGS DIFF FINAL; LYMPH % 3.8 % (9.0-44.0); LYMPHOCYTE # 0.5 TH/MM3 (1.0-4.8); MEAN CELL VOLUME 83.5 FL (80.0-100.0); MEAN CORPUSCULAR HEMOGLOBIN 25.9 PG (27.0-34.0); MONO % 2.4 % (0.0-8.0); NEUT % 93.5 % (16.0-70.0); PLATELET COUNT 173 TH/MM3 (150-450); RED BLOOD COUNT 3.59 MIL/MM3 (4.50-5.90); RED CELL DISTRIBUTION WIDTH 15.4 % (11.6-17.2); WHITE BLOOD COUNT 12.6 TH/MM3 (4.0-11.0)
[2015-09-24 05:55] LABS: BICARBONATE 34.6 MEQ/L (21.0-32.0); POTASSIUM 4.1 MEQ/L (3.5-5.1)
[2015-09-24] MEDS: CARBIDOPA/LEVODOPA 25 MG/100 MG TAB GT SCH ×3 (06:01→20:37)
[2015-09-24] MEDS: clonazePAM 1 MG TAB PO SCH ×3 (06:01→20:36)
[2015-09-24] MEDS: REMOVE OLD PATCH TD SCH (08:00)
[2015-09-24] MEDS: CHLORHEXIDINE 0.12% (ORAL KIT) 15 ML CUP MT SCH ×2 (08:00→20:38)
--- NOTE | 2015-09-24 08:27 | HHI.CCPN ---
Subjective Remarks/Hospital Course 06/17: Pt is a 54 yr man with multiple medial problems including Parkinson's disease, advanced dementia, hyponatremia, anxiety, pneumonia, GERD, cognitive disorder, and multidrug resistant UTI- ESBL02/19/15 , who resides in a assisted. Pt by report was found by staff in assisted to be less alert and having respiratory difficultly and fevers. Pt was brought to ED adn placed on ventilator. His workup was inclusive of labs, chest xray and ct head and abd/pelvis. WBC 16.4, +UTI, lactic acid 4, troponin ,0.02, BUN/ cre 18/ 0.76. CT head 06/18/15: diffuse atrophy unchanged. No acute intracranial findings ct abd/ pelvis with IV contrast: 06/18/15 Conclusion: 1. Chronic nonspecific urinary bladder wall thickening. Bladder collapsed with Putnam catheter in place. 2.Chronic bilateral mid to lower zone groundglass opacity. 3. Nonobstructing left renal calculus. 4. Distended rectum Pt admitted and fluid and abx ordered. 06/18: Drowsy, easily arousable. On mechanical ventilation via tracheostomy. Tachypneic. Resting tremor noted. 06/19: Drowsy, arousable. On mechanical ventilation via tracheostomy. 06/20: Drowsy, arousable. Remains on mechanical ventilation via tracheostomy. We'll repeat blood cultures, UA and urine cultures. Fluconazole IV added in view of yeast in urine. 07/06: Reconsulted as patient return to the ventilator on a right ventricular due to tachypnea. Low-grade temperatures. Tolerating tube feeding. Extremity encephalopathic demented patient with difficult neurological examination. 07/07: Status post chest tube placement by IR for right pneumothorax 07/06. Afebrile. Tolerating tube feeds. Positive BM. Currently tachypneic on the ventilator. Does not appear to be any acute distress. 07/08: Afebrile. Tolerating tube feeding. He is comfortable currently on CPAP trials 11/10. Positive BM. 07/09: Afebrile. Tolerating tube feeding. Appears comfortable on T bar. Positive BM. 07/10: Afebrile. Eyes are open. Remained on T piece overnight. Tolerating tube feeding. 07/11: MAXIMUM TEMPERATURE 100. Currently 98.6. Eyes are open. On ACV overnight secondary to "tachypnea and sweating". Switching back to PSV trials today. Goal is T piece during daytime, CPAP at night. 07/12: No acute events overnight. On PSV 15/5 -attempt TP up to 6 hours today. No pneumothorax on chest x-ray 07/13: Placed back on full ventilator support for tachypnea. Otherwise clinically unchanged. No fever today 07/14: Patient was on T piece yesterday evening, placed back on PSV overnight, patient mechanical ventilation this morning. Patient appears to be struggling with mechanical ventilation. Patient placed back on PSV with improvement 07/15: Patient placed back on mechanical ventilation last evening due to respiratory rate. It was indicated patient was tachypnea can the 40s. Patient on mechanical ventilation this time with respiration rate mid 20s. Chest tube still in place without any output, chest x-ray still indicating resolution of pneumothorax. 07/16: Patient seen and examined today. Patient placed back on mechanical ventilation overnight due to respiratory rate. Even on mechanical ventilation patient has respiration rate in the 30s. Patient afebrile, blood pressure stable. Continue vent weaning 07/17: Patient seen and examined. Currently afebrile. Currently on CPAP 15/5 @ 40%. Patient is awake with open mouth resting in bed in no apparent acute distress. Tolerating tube feeding. 2 bowel movements. 07/18: No neurological changes. Afebrile. 2 bowel moments. Tolerating tube feeding. We'll attempt TP trials today. On CPAP since 07/15 07/19 No events overnight. On CPAP with PS: 10, PEEP: 5 and FIO2 35%. Afebrile. On no sedation. 07/20 No events overnight. Tolerating CPAP. Afebrile. 07/21: Remains on CPAP. Attempt T piece trial today. Afebrile. One bowel movement. Tolerating tube feeding. 07/22: Afebrile. Positive BM. Tolerating tube feeding. Noted switched tracheostomy to #6 Shiley cuffed fenestrated. Neurologically unchanged 07/23: Afebrile. Positive BM. Tolerating tube feeding. Questionable leak in exchange trach. Place back on a rate/ACV overnight. Insufflated seems to be doing better at the present time. Will check chest x-ray. Possible he might need #6 XLT versus replacement of chronic #8 Shiley. 07/24: Tolerating TP today, RR in low 30s patient appears comfortable. No acute events overnight 07/25: Remains off the ventilator more than 36 hours now. Intermittently tachypneic probably breathing. Chest x-ray was clear yesterday. No acute events reported overnight. PEG not functioning per RN 08/02: Patient was transferred back to critical care service due to continuing ventilator management, tachypnea. Patient clinical status with no significant change. Patient with low-grade fever 100.2, 08/03: Patient seen and examined today. No significant change in clinical status. Patient still with chronic tachypnea. Patient afebrile now. 08/04: Patient seen and examined today. No change in clinical status. Patient still continues to have chronic tachypnea. Patient afebrile. Continue vent weaning 08/05: Patient seen and examined today. Patient had chest tube removed yesterday , chest x-ray shows redevelopment of pneumothorax. Chest tube replaced. Otherwise, patient still on ventilator with tachypnea. Afebrile 08/06: Patient seen and examined today. Patient went to have chest tube placed, repeat chest x-ray did not indicate any pneumothorax. No overnight events. We' ll need to pursue LTAC placement 08/07 No events overnight. On ventilator via trach. Afebrile. 08/08 Patient tolerated CPAP x4 hrs yesterday. Afebrile. On no sedation. 08/09 No events overnight. Tolerated CPAP x 12 hrs yesterday. Afebrile. 08/10 Patient tolerated TP's x 12 hrs yesterday back on ACV overnight. 08/11 No events overnight, currently on TP's with 40% FIO2. Afebrile. 08/12 On CPAP 10/5. Tolerated Tpiece 3 hours earlier today. Afebrile. 08/13 On CPAP 10/5. Not tolerating CPAP as well over last few days and RT notes challenge with suctioning respiratory secretions adequately. Discussing with healthcare proxy regarding exchange trach to 8.0. 08/14 Nursing and RT staff having continued difficulty suctioning respiratory secretions via 6.0 tracheostomy. KAREN Garcia did not consent to stoma dilation and trach upsize yesterday but said she would call back and let me know but no return call. Contacted again today and left a message. Afebrile. On CPAP 10/5. Brow furrowing on exam, appears to be in pain but pain not localizable. Tolerating tube feeds, had BM yesterday 08/15 Not tolerating CPAP today. Contacted healthcare surrogate again and discussed need for trach change. She consented and trach was dilated and up- sized to 8.0 Distal XLT to facilitate pulmonary toilet and to address volume leak. 08/16 No events overnight. Remains on ventilator via trach. Afebrile. Tolerating TF. 08/17 No events overnight. Afebrile. 08/18 Patient tolerated CPAP x 4 hrs yesterday. Afebrile.On ventilator via trach. 08/19 On CPAP 25/06. Temp max 99.3 08/20 Stenotrophomonas in sputum, started on Levaquin per ID. Temp max 99.8. On CPAP 20/09. Tube feeds were held because PEG was clogged but now PEG is functioning. 08/21 No events overnight. Afebrile. Remains on ventilator via trach. Has been tolerating CPAP trials for last 2 days. 08/22 No events overnight. Afebrile , Has been on CPAP all night with PS: 20, PEEP; 5 and FIO2 35%. 08/23 No events overnight. Remains on CPAP, T:99.9 08/24 No events overnight. On CPAP PS 10, PEEP; 5 and FIO2 35% overnight. Afebrile. 08/25 No events overnight. Afebrile. On CPAP overnight with PS 8, PEEP: 5 and FIO2 35%, afebrile. Tolerating TF. 08/26 Tolerating Tpiece. 08/27 Tolerated Tpiece yesterday and overnight. However this evening desaturated and was placed back on CPAP. Dr. Mistry attempted to update daughter Rahda Foreman and discuss his overall poor prognosis for recovery, but call got disconnected midway through call and could not reach her back 08/28 On PSV 10/5 40% today. Afebrile. 08/29 On CPAP overnight. Now on Tpiece 70% per pulmonology. Increased yellow secretions noted. Temp max 99.1 Nursing staff expresses concern that he appears uncomfortable during all nursing care. Called elsa Garcia to update , no answer, left message to call me. 08/30: On CPAP overnight. Currently on T piece at 45%. Currently afebrile. Positive BM. Tolerating tube feeding. 08/31: On CPAP overnight. Will return T piece at 35%. MAXIMUM TEMPERATURE 99.6. 5 bowel movements. Tolerating tube feeds. Neurological examination unchanged. 09/01: Tmax 99.2. Currently afebrile. Currently in TPs at 35%. 7 bowel movement overnight. Tolerating tube feeding. Subjective: 09/19: Halicat called secondary to aspiration on Gen. medical floor. Transfer to ICU and placed on mechanical ventilation. ABG shows CO2 retention. Etc. revealed no acute cardiac 20 finds however copious message to feed suctioned from trach tube 09/20 No events overnight. Afebrile. On ACV with RR 16, TV 500, PEEP: 5 and FIO2 40%. 09/21 No events overnight. Afebrile. 09/22 No events overnight. Tolerated CPAP all day yesterday with PS 12, PEEP:5 and FIO2 35%. Afebrile. 09/23 No events overnight. On no sedation Tolerated CPAP yesterday. Had T:100.3 last night. Objective - Vital Signs Date Time Temp Pulse Resp B/P Pulse Ox O2 Delivery O2 Flow Rate FiO2 09/24/15 07:58 35 09/24/15 07:58 100 09/24/15 06:00 77 09/24/15 04:00 99.2 23 141/66 09/23/15 04:00 Mechanical Ventilator 09/20/15 10:20 10.00 Intake and Output 09/23/15 09/23/15 09/24/15 08:00 16:00 00:00 Intake Total 536 ml 1132 ml 563 ml Output Total 550 ml 450 ml 300 ml Balance -14 ml 682 ml 263 ml Result Diagram: 09/24/15 0428 09/24/15 0428 Other Results Laboratory Tests Test 09/24/15 04:28 White Blood Count 12.6 TH/MM3 Red Blood Count 3.59 MIL/MM3 Hemoglobin 9.3 GM/DL Hematocrit 29.9 % Mean Corpuscular Volume 83.5 FL Mean Corpuscular Hemoglobin 25.9 PG Mean Corpuscular Hemoglobin 31.0 % Concent Red Cell Distribution Width 15.4 % Platelet Count 173 TH/MM3 Mean Platelet Volume 10.3 FL Neutrophils (%) (Auto) 93.5 % Lymphocytes (%) (Auto) 3.8 % Monocytes (%) (Auto) 2.4 % Eosinophils (%) (Auto) 0.0 % Basophils (%) (Auto) 0.3 % Neutrophils # (Auto) 11.8 TH/MM3 Lymphocytes # (Auto) 0.5 TH/MM3 Monocytes # (Auto) 0.3 TH/MM3 Eosinophils # (Auto) 0.0 TH/MM3 Basophils # (Auto) 0.0 TH/MM3 CBC Comment DIFF FINAL Differential Comment Sodium Level 144 MEQ/L Potassium Level 4.1 MEQ/L Chloride Level 104 MEQ/L Carbon Dioxide Level 34.6 MEQ/L Anion Gap 5 MEQ/L Blood Urea Nitrogen 27 MG/DL Creatinine 0.39 MG/DL Estimat Glomerular Filtration 233 ML/MIN Rate Random Glucose 229 MG/DL Calcium Level 8.5 MG/DL Phosphorus Level 1.5 MG/DL Magnesium Level 2.0 MG/DL Imaging Last Impressions Chest X-Ray 09/21/15 0600 Signed Impressions: Service Date/Time: Monday, September 21, 2015 04:39 - CONCLUSION: No acute disease. Erlin Barajas MD Abdomen X-Ray 09/21/15 0000 Signed Impressions: Service Date/Time: Monday, September 21, 2015 11:31 - CONCLUSION: Normal bowel gas pattern. Tai Taylor Jr., MD Tunnelled Chest Tube Removal 08/05/15 1100 Signed Impressions: Service Date/Time: Wednesday, August 05, 2015 11:00 - CONCLUSION: Uncomplicated chest tube removal. Blaine Jackson MD Chest Tube Change 07/31/15 0000 Signed Impressions: Service Date/Time: Friday, July 31, 2015 14:34 - CONCLUSION: Uncomplicated reposition of previously placed chest tube as above. Blaine Jackson MD Chest Tube Insertion 07/30/15 0000 Signed Impressions: Service Date/Time: July 14:50 - CONCLUSION: Uncomplicated chest tube placement as above. Blaine Jackson MD Catheter Change 07/27/15 0000 Signed Impressions: Service Date/Time: Monday, July 27, 2015 14:43 - CONCLUSION: Uncomplicated gastrostomy tube exchange as above. Blaine Jackson MD Chest CT 07/11/15 0000 Signed Impressions: Service Date/Time: Saturday, July 11, 2015 09:49 - CONCLUSION: Scattered patchy densities significantly improved from previous study. Tiny anterior right basilar pneumothorax. Right-sided chest tube in good position. Néstor Matamoros MD Head CT 06/18/151902 Signed Impressions: Service Date/Time: June 19:31 - CONCLUSION: Diffuse atrophy unchanged. No acute intracranial findings. Kush Briscoe MD Abdomen/Pelvis CT 06/18/151902 Signed Impressions: Service Date/Time: June 19:36 - CONCLUSION: 1. Chronic nonspecific urinary bladder wall thickening. Bladder collapsed with Putnam catheter in place. 2. Chronic bilateral mid to lower lung zone groundglass opacity. 3. Nonobstructing left renal calculus. 4. Distended rectum. Kush Briscoe MD Objective Remarks GENERAL: 54-year-old male, cachectic, debilitated with contractures on ACV VT tracheostomy 35% HEENT: NC/AT. PERRL. MMM. OP without erythema or exudates NECK: No JVD. Supple. 8.0 [address] XLT trach in place CARDIAC: RRR. S1/S2. No S4. No murmurs, clicks gallops or rubs. LUNGS: B/L eqal air entry with few coarse BS ABDOMEN: S/NT/ND. Positive BS EXTREMITIES: 1+ dependent pedal edema. Contractures and deformities of fingers. Stage III coccyx/sacral decubitus ulcer NEUROLOGY: Patient with significant contractures of the bilat lower extremity, upper extremities. Eyes open spontaneously. Temporal and facial muscle wasting , muscular atrophy all extremities. Procedures 07/26- PEG replacement 07/29- right pigtail catheter placement for new pneumothorax 07/29 Date of Insertion: Jul 30, 2015 A/P Assessment and Plan Neuro/Psych: Parkinson's disease Cognitive disorder not otherwise specified Chronic encephalopathy Dementia Depression On no sedation, monitor neuro status CT head 06/18/15: - diffuse atrophy unchanged. No acute intracranial findings Continue Sinemet 25/100 q8 via PEG, Seroquel 50 mg twice a day, olanzapine 5 mg a night, Klonopin 2 mg every 8 hours, Paxil 20 daily Continue Lortab when necessary pain and fentanyl patch 50 g every 3 days for pain management. Fentanyl bolus prn breakthrough pain or if needed for turning/ nursing care/etc. Resp: Acute on chronic respiratory failure Chronic trach #8 Shiley distal XLT Pneumonia - resolved Right pneumothorax status post pigtail catheter 2 (resolved) Continue with vent support keep sat >92% Ventilator bundle, pulm toilet, trach care, CPAP trials as steven. Pulmonary Dr. Restrepo following. Decrease Solu-Medrol 30 mg BID Exchanged to 8 Distal XLT on 08/15 to facilitate suctioning, trach care. Bronchodilators ( DuoNeb) CXR 09/20: No acute disease. Cardiac History of orthostasis History of CAD History dyslipidemia History of hypertension Continue Midodrine 5 mg twice a day. On 2.5 twice a day at home Monitor HR and BP keep MAP>65mmHg. Lactic acid 1.8 GI: Chronic moderate protein energy malnutrition Dysphagia Status post PEG Internal hemorrhoids Gastroesophageal reflux disease - On TF- Jevity 1.5 @60 cc an hour - KUB: normal bowel gas pattern - Currently Prevacid 30 mg per PEG tube daily for GERD FEN/Renal: Nonobstructing left renal calculus - Monitor renal function, I/O's. electrolytes replacement per protocol. ID: 09/21 Urine cx: Pseudomonas 09/19 Sputum cx: Pseudomonas, Kleb pneumonia ESBL pos Candiduria (cele tropicalis urine cx 08/17) ESBL positive Klebsiella/Pseudomonas pneumonia Stenotrophomonas in sputum 08/17 MRSA colonization sepsis UTI Klebsiella ESBL positive (has been treated) S/p Diflucan 08/17-08/26 . Levaquin 08/20--08/26 for Stenotrophomonas. Completed course of meropenem for 08/11-08/20 for Klebsiella ESBL/pseudomonas pneumonia. On Lactinex tid Restart Zosyn and re consult ID. Monitor off abx for signs of infections ( Fever , WBC) CXR 09/20: No acute disease Pertinent cultures 09/21 Urine cx: Pseudomonas 09/19 Sputum cx: Pseudomonas, Kleb pneumonia ESBL pos Urine cx 08/17 - cele tropicalis Blood culture 08/17 negative sputum culture 08/17 - pseudomonas and Stenotrophomonas maltophilia. Urine culture: 08/02 Klebsiella pneumonia ESBL positive Urine culture: 08/02 Cele Tropicalis, C. Glabrata Sputum culture: 08/02 Pseudomonas, Klebsiella pneumonia ESBL positive Blood culture: 08/02 yeast species, Cele glabrata, Cele tropicalis - History of Multidrug resistant UTI- ESBL 02/19/15 , MRSA + 03/20/15 - Cele glabrata in urine 03/19/15 - Rechecked blood, sputum and urine cultures 07/06 no growth - 06/17 - blood cultures 2 - CONS/staph epi - 06/17 - sputum - ESBL positive Klebsiella/Pseudomonas Treated 15 days with tobramycin aerosols twice a day. - 06/17 - urine - C. glabrata/tropicalis - treated with Diflucan Endo: Place on SSI with accuchecks Q6. Heme Normocytic Anemia - Monitor CBC MSK Bilateral lower extremity Contractures Stage III sacral decubitus present on admission - Wound care and PT on case Prophylaxis - GI - Prevacid - DVT - SCDs/ Lovenox. ACCESS: PIVs Critical Care: The total critical care time was 30 minutes. Time to perform other separately billable procedures was not included in the critical care time. Antonio Carr MD Sep 24, 2015 08:27
[2015-09-24] MEDS ORDERED: GLUCAGON 1 MG/ML VIAL OTHER PRN (08:30)
[2015-09-24] MEDS ORDERED: DEXTROSE 50% IN WATER 50 ML VIAL(D50) IV PUSH PRN (08:30)
[2015-09-24] MEDS: methylPREDNISolone SOD SUCC 40 MG/1 ML VIAL IV SCH ×2 (08:55→20:37)
[2015-09-24] MEDS: QUEtiapine FUMARATE 25 MG TAB G-TUBE SCH ×2 (08:55→20:36)
[2015-09-24] MEDS: PARoxetine HCL 20 MG TAB G-TUBE SCH (08:55)
[2015-09-24] MEDS: GABAPENTIN 300 MG CAP G-TUBE SCH ×2 (08:55→20:35)
[2015-09-24] MEDS: MIDODRINE 5 MG TAB G-TUBE SCH ×2 (08:55→20:35)
[2015-09-24] MEDS: PIPERACIL-TAZO 3.375 GM PREMIX 50 ML IV SCH ×3 (08:55→20:55)
[2015-09-24] MEDS: ARTIFICIAL TEARS OPTH SOLN 15 ML BTL EACH EYE SCH ×3 (08:55→18:00)
[2015-09-24] MEDS: SODIUM CHLORIDE 0.9% FLUSH 5 ML FLUSH IVF SCH ×2 (08:56→20:38)
[2015-09-24] MEDS: fentaNYL 50 MCG/HR PATCH TD SCH (08:56)
[2015-09-24] MEDS: LANSOPRAZOLE SOLUTAB 30 MG TAB NG SCH (08:56)
[2015-09-24] MEDS: LACTOBACILLUS ACIDOPHILUS TAB PO SCH ×3 (08:56→18:00)
[2015-09-24] MEDS: COLLAGENASE OINT 30 GM TUBE TOP SCH (08:57)
[2015-09-24] MEDS: INSULIN NovoLIN REGULAR SUPPLEMENTAL SCALE SQ SCH ×3 (09:00→20:35)
--- NOTE | 2015-09-24 12:42 | HHI.PR ---
Subjective Remarks On vent support. Back to ICU for poss Aspiration. On IV antibiotic. Tolerates CPAP all day, and night . Neuro status same.On tube feeds. CXR only shows chronic changes. Objective Vital Signs Date Time Temp Pulse Resp B/P Pulse Ox O2 Delivery O2 Flow Rate FiO2 09/24/15 10:59 95 35 09/24/15 08:00 35 09/24/15 08:00 83 09/24/15 08:00 99.0 83 20 134/71 95 09/24/15 07:58 35 09/24/15 07:58 100 35 09/24/15 06:00 77 09/24/15 04:00 35 09/24/15 04:00 99.2 74 23 141/66 98 09/24/15 04:00 74 09/24/15 03:44 94 35 09/24/15 02:00 66 09/24/15 01:04 96 35 09/24/15 00:00 72 09/24/15 00:00 35 09/24/15 00:00 97.9 72 18 130/67 95 09/23/15 22:12 94 35 09/23/15 22:00 84 09/23/15 20:00 35 09/23/15 20:00 95 09/23/15 20:00 100.3 95 28 134/64 98 09/23/15 19:37 96 35 09/23/15 18:00 88 09/23/15 16:37 95 35 09/23/15 16:00 35 09/23/15 16:00 98.7 85 18 134/66 97 09/23/15 16:00 85 09/23/15 14:00 90 09/23/15 13:37 100 35 I/O 09/23/15 09/23/15 09/23/15 09/24/15 09/24/15 09/24/15 07:00 15:00 23:00 07:00 15:00 23:00 Intake Total 536 ml 1132 ml 563 ml 530 ml Output Total 550 ml 450 ml 300 ml 275 ml Balance -14 ml 682 ml 263 ml 255 ml Intake Oral 0 ml 0 ml 0 ml IV Total 68 ml 201 ml 62 ml 60 ml Tube Feeding 348 ml 691 ml 381 ml 350 ml Other 120 ml 240 ml 120 ml 120 ml Output Urine Total 550 ml 450 ml 300 ml 275 ml # Bowel Movements 1 2 1 1 Result Diagram: 09/24/15 0428 09/24/15 0428 Objective Remarks This is a thin white male who is unresponsive ,with a trach tube in place. HEENT: Pupils are equal and reactive to light. Throat dry. CHEST:Decreased breath sounds with few Ronchi scattered. CARDIOVASCULAR: S1 and S2 is normal. ABDOMEN: Soft, nondistended. BS +. He has a PEG tube in place. EXTREMITIES: No edema.muscle wasting. ulcer over sacrum. NEURO: Lethargic and has weak extremities .Reflexes not elicited. Assessment and Plan Assessment and Plan IMPRESSION 1. Respiratory failure, resolving 2. Sepsis, resolving. 3. UTI 4. Tracheobronchitis 5. Parkinson's disease 6. Dementia. 7. Severe Deconditioning. Plan : 1. Cont PSV, 06/17, FIO2 35 % all the time. 2. Nebs qid , duoneb. 3. Cont Tube feeds at 60 CC 4. BMP. 5. Antibiotics per ID. 6. Cont Trach toilet and lavage. 8. Transfer to [facility]. Darren Kiser MD Sep 24, 2015 12:42
--- NOTE | 2015-09-24 13:23 | HHI.HCPN ---
Reason for visit a. To assist with evaluation and management of symptoms including: dyspnea ; secretions. b. To assist medical decision maker(s) with: better understanding of current medical conditions; weighing benefits/burdens of medical treatment options; making medical treatment decisions. . (ALOK JONES) Subjective/Interval History Patient seen and examined in ICU. No family at bedside. Left message for daughterRadha to return call for medical update. Spoke with motherTeresa to notify patient in ICU, medical update provided. On CPAP during my visit. Remains unresponsive. Tmax 100.3. Blood cultures positive Pseudomonas and Klebsiella ESBL. Urine culture pseudomonas aeruginosa. Tolerating tube feedings. Nursing pain level scores are "0." Continues on 50 mcg/hr fentanyl patch. No recent prn opiates given. No PRN Levsin since 09/23/15. From Dr. Pickard's initial palliative care consultation of 07/15/15... This is the 5th 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 The patient has had multiple hospitalizations which included stays in the intensive care unit for various infections. He had a urinary tract infection with multidrug resistant ESBL on 02/19/15. He was last MRSA positive on . halfway notes from the facility indicate that his current baseline is: * Bedbound status * Unable to communicate * NPO -- on tube feedings at 85 cc /hr * Dependent for all ADLs In the emergency Department, initial vital signs were as follows > temperature 100.9; pulse 98; respiratory rate 38; blood pressure 104/61; pulse oximetry 99% on room air via trach collar. Initial physical examination the emergency department revealed the following > patient was frail and chronically ill-appearing. Skin showed no obvious wounds. Head, eyes, ENT, neck, cardiovascular, respiratory, gastrointestinal exams were unremarkable. Neurologically, the patient was unable to answer questions or respond or follow commands. Initial diagnostic testing revealed the following: * CBC showed WBC 16.4; hemoglobin 11.3; platelet count 176 * Coagulation profile showed PT 11.4; INR 1.1; PTT 29.4 * Chemistry profile showed sodium 141; potassium 4.5; chloride 105; CO2 27.4; anion gap 9; BUN 21; creatinine 0.85; estimated GFR 95; glucose 116; calcium 9.6 * Liver function tests showed total bilirubin 0.6; AST 23; ALT 38; alkaline phosphatase 59; total protein 7.5; albumen 3.2 * Urinalysis was remarkable for large occult blood; large leukocyte esterase; few bacteria; few yeast with hyphae; few budding yeast. * Arterial blood gases on trach mask at 40% showed pH 7.53; PCO2 33; PaO2 108; bicarbonate 27; base excess 4.2 * Chest x-ray showed no acute cardiopulmonary disease * Head CT showed diffuse atrophy unchanged from prior exam. * CT of the abdomen and pelvis showed chronic nonspecific urinary bladder wall thickening; bladder collapsed with Valdez catheter in place; chronic bilateral mid to lower lung zone groundglass opacity; nonobstructing left renal calculus; distended rectum. * The emergency room doctor diagnosed severe sepsis. The patient was given 2 L of IV fluid and broad-spectrum antibiotic-coated verge in the emergency department. Cultures were obtained. Valdez catheter was changed. As the patient was markedly tachypneic with increased work of breathing and use of accessory muscles during his stay in the emergency department. He was placed on CPAP and subsequently intubated and placed on mechanical ventilation. Critical care was consulted and the patient was admitted to the intensive care unit. Further examination revealed a stage II 6 x 2 cm sacral wound. Urine culture on admission grew out Heena of 2 different species. Sputum culture grew out Klebsiella pneumonia ESBL positive as well as pseudomonas. Blood culture grew out coag-negative staph and staph epidermidis. Both infectious disease and pulmonology were consulted. The patient slowly improved, was extubated, and critical care signed off on . However, on 07/06 the patient had to be placed back on the ventilator. A right sided pneumothorax was noted and patient underwent chest tube placement by interventional radiology. Pneumothorax has appeared to resolve on most recent chest x-ray. Sputum, blood, and urine cultures from 07/07/15 are all negative. White blood count is currently down to 7. Hemoglobin is 10.6. Albumen is suboptimal at 3.0. Renal function is normal. He is currently off anti-biotics. Current pain regimen includes the following: * Fentanyl patch; 50 g per hour * Morphine sulfate 5 mg sublingually or via the tube every 4 hours when necessary (he has been using 1-2 doses of this per day) The patient was tolerating CPAP earlier today and has since been removed from the ventilator and is on a T-piece at 40% FI02. At time of my visit, eyes are open. He intermittently tracks. He cannot follow commands and makes no attempt to interact. . Family/friend interactions Left message for daughterRadha to return call. Spoke with motherTeresa to provide update. Notified patient back in ICU, with infection, respiratory failure. . (ALOK JONES) Advance Directives Living Will: Never completed Health Care Surrogate: Copy in medical record Durable Power of [employer]: Never completed (ALOK JONES) Advance Directive Specifics Date completed: Patient visited Scott Mack, Director [employer] in March and again in November 2014. The patient was encouraged to complete Advance directive documents but never did them. Dr. Pickard personally called Mr. Mack ([phone]) to check for advance directives. Health Care Surrogate(s): The patient completed a health care surrogate document dated 09/02/14 desigating his friend Bola Nolasco as surrogate. Mr. Nolasco was not aware of this and has declined serving in that capacity. The patient has an adult daughter -- Radha Foreman who is willing to serve as health care proxy decision maker. Patient's motherTeresa is aware. Significant change in goals: FULL CODE. Goals remain aggressive. . (ALOK JONES) Objective Vital Signs Date Time Temp Pulse Resp B/P Pulse Ox O2 Delivery O2 Flow Rate FiO2 09/24/15 10:59 95 35 09/24/15 08:00 35 09/24/15 08:00 83 09/24/15 08:00 99.0 83 20 134/71 95 09/24/15 07:58 35 09/24/15 07:58 100 35 09/24/15 06:00 77 09/24/15 04:00 35 09/24/15 04:00 99.2 74 23 141/66 98 09/24/15 04:00 74 09/24/15 03:44 94 35 09/24/15 02:00 66 09/24/15 01:04 96 35 09/24/15 00:00 72 09/24/15 00:00 35 09/24/15 00:00 97.9 72 18 130/67 95 09/23/15 22:12 94 35 09/23/15 22:00 84 09/23/15 20:00 35 09/23/15 20:00 95 09/23/15 20:00 100.3 95 28 134/64 98 09/23/15 19:37 96 35 09/23/15 18:00 88 09/23/15 16:37 95 35 09/23/15 16:00 35 09/23/15 16:00 98.7 85 18 134/66 97 09/23/15 16:00 85 09/23/15 14:00 90 09/23/15 13:37 100 35 Intake & Output 09/24/15 09/24/15 07:00 19:00 Intake Total 1093 ml Output Total 575 ml Balance 518 ml Intake Oral 0 ml IV Total 122 ml Tube Feeding 731 ml Other 240 ml Output Urine Total 575 ml # Bowel Movements 2 Physical Exam CONSTITUTIONAL/GENERAL: This is a thin, pale, contracted, chronically ill appearing male on [facility] vent to trach. Unresponsive. TUBES/LINES/DRAINS: Trach; condom cath, PEG tube; scd's SKIN: No jaundice, rashes, or lesions. Sacral wound, not visualized today. Diaphoretic. NECK: Tracheostomy, on CPAP. CARDIOVASCULAR: Regular rate and rhythm without murmurs, gallops, or rubs. No JVD. Peripheral pulses symmetric. RESPIRATORY/CHEST: Scattered crackles. Breath sounds equal bilaterally and diminished at bases. GASTROINTESTINAL: Abdomen soft, non-tender, nondistended. No guarding. Bowel sounds present. GENITOURINARY: Without palpable bladder distension. Condom catheter in place. MUSCULOSKELETAL: Extremities without clubbing, cyanosis, or edema. Contractures noted. No mottlin . NEUROLOGICAL: Does not open eyes to voice or command. Unresponsive. Unable to follow even simple commands. No spontaneous movements seen. PSYCHIATRIC: Unresponsive. . (ALOK JONES) Diagnostic Tests Laboratory Laboratory Tests Test 09/22/15 09/22/15 09/23/15 09/24/15 08:40 15:00 05:16 04:28 White Blood Count 10.9 TH/MM3 10.9 TH/MM3 12.6 TH/MM3 (4.0-11.0) (4.0-11.0) (4.0-11.0) Red Blood Count 3.27 MIL/MM3 3.60 MIL/MM3 3.59 MIL/MM3 (4.50-5.90) (4.50-5.90) (4.50-5.90) Hemoglobin 8.7 GM/DL 9.5 GM/DL 9.3 GM/DL (13.0-17.0) (13.0-17.0) (13.0-17.0) Hematocrit 27.1 % 29.6 % 29.9 % (39.0-51.0) (39.0-51.0) (39.0-51.0) Mean Corpuscular Volume 82.8 FL 82.3 FL 83.5 FL (80.0-100.0) (80.0-100.0) (80.0-100.0) Mean Corpuscular Hemoglobin 26.5 PG 26.4 PG 25.9 PG (27.0-34.0) (27.0-34.0) (27.0-34.0) Mean Corpuscular Hemoglobin 32.0 % 32.1 % 31.0 % Concent (32.0-36.0) (32.0-36.0) (32.0-36.0) Red Cell Distribution Width 15.2 % 15.5 % 15.4 % (11.6-17.2) (11.6-17.2) (11.6-17.2) Platelet Count 179 TH/MM3 187 TH/MM3 173 TH/MM3 (150-450) (150-450) (150-450) Mean Platelet Volume 9.6 FL 9.7 FL 10.3 FL (7.0-11.0) (7.0-11.0) (7.0-11.0) Neutrophils (%) (Auto) 89.2 % 93.1 % 93.5 % (16.0-70.0) (16.0-70.0) (16.0-70.0) Lymphocytes (%) (Auto) 6.5 % 4.3 % 3.8 % (9.0-44.0) (9.0-44.0) (9.0-44.0) Monocytes (%) (Auto) 4.3 % (0.0-8.0) 2.6 % (0.0-8.0) 2.4 % (0.0-8.0) Eosinophils (%) (Auto) 0.0 % (0.0-4.0) 0.0 % (0.0-4.0) 0.0 % (0.0-4.0) Basophils (%) (Auto) 0.0 % (0.0-2.0) 0.0 % (0.0-2.0) 0.3 % (0.0-2.0) Neutrophils # (Auto) 9.7 TH/MM3 10.2 TH/MM3 11.8 TH/MM3 (1.8-7.7) (1.8-7.7) (1.8-7.7) Lymphocytes # (Auto) 0.7 TH/MM3 0.5 TH/MM3 0.5 TH/MM3 (1.0-4.8) (1.0-4.8) (1.0-4.8) Monocytes # (Auto) 0.5 TH/MM3 0.3 TH/MM3 0.3 TH/MM3 (0-0.9) (0-0.9) (0-0.9) Eosinophils # (Auto) 0.0 TH/MM3 0.0 TH/MM3 0.0 TH/MM3 (0-0.4) (0-0.4) (0-0.4) Basophils # (Auto) 0.0 TH/MM3 0.0 TH/MM3 0.0 TH/MM3 (0-0.2) (0-0.2) (0-0.2) CBC Comment DIFF FINAL DIFF FINAL DIFF FINAL Differential Comment Sodium Level 142 MEQ/L 144 MEQ/L 144 MEQ/L (136-145) (136-145) (136-145) Potassium Level 3.6 MEQ/L 3.6 MEQ/L 4.1 MEQ/L (3.5-5.1) (3.5-5.1) (3.5-5.1) Chloride Level 99 MEQ/L 100 MEQ/L 104 MEQ/L (98-107) (98-107) (98-107) Carbon Dioxide Level 34.3 MEQ/L 37.5 MEQ/L 34.6 MEQ/L (21.0-32.0) (21.0-32.0) (21.0-32.0) Anion Gap 9 MEQ/L (5-15) 7 MEQ/L (5-15) 5 MEQ/L (5-15) Blood Urea Nitrogen 28 MG/DL (7-18) 30 MG/DL (7-18) 27 MG/DL (7-18) Creatinine 0.38 MG/DL 0.49 MG/DL 0.39 MG/DL (0.60-1.30) (0.60-1.30) (0.60-1.30) Estimat Glomerular Filtration 240 ML/MIN 179 ML/MIN 233 ML/MIN Rate (>89) (>89) (>89) Random Glucose 140 MG/DL 210 MG/DL 229 MG/DL (74-106) (74-106) (74-106) Calcium Level 8.6 MG/DL 9.0 MG/DL 8.5 MG/DL (8.5-10.1) (8.5-10.1) (8.5-10.1) Urine Color YELLOW (YELLW/STRAW) Urine Turbidity HAZY (CLEAR) Urine pH 6.0 (5.0-8.5) Urine Specific [place] 1.023 (1.002-1.035) Urine Protein TRACE mg/dL (NEG-TRACE) Urine Glucose (UA) NEG mg/dL (NEG) Urine Ketones NEG mg/dL (NEG) Urine Occult Blood NEG (NEG) Urine Nitrite NEG (NEG) Urine Bilirubin NEG (NEG) Urine Urobilinogen LESS THAN 2.0 MG/DL (LESS THAN 2.0) Urine Leukocyte Esterase LARGE (NEG) Urine RBC LESS THAN 1 /hpf (0-3) Urine WBC 32 /hpf (0-5) Urine Squamous Epithelial <1 /hpf (0-5) Cells Urine Calcium Oxalate Crystals FEW /hpf (NONE) Urine Bacteria OCC /hpf (NONE) Urine Hyaline Casts 4 /lpf (RARE) Urine Mucus MOD /lpf (OCC) Urine Yeast with Hyphae OCC (NONE) Urine Yeast (Budding) OCC (NONE) Microscopic Urinalysis Comment CATH-CULTURE IND Phosphorus Level 1.5 MG/DL (2.5-4.9) Magnesium Level 2.0 MG/DL (1.5-2.5) (ALOK JONES-Wen) Result Diagram: 09/24/15 0428 09/24/15 0428 Microbiology Microbiology Date/Time Procedure Status Source Growth 09/22/15 15:00 Urine Culture - Final Complete Urine Catheterized Urine Pseudomonas Aeruginosa Imaging Last Impressions Chest X-Ray 09/21/15 0600 Signed Impressions: Service Date/Time: Monday, September 21, 2015 04:39 - CONCLUSION: No acute disease. Erlin Barajas MD Abdomen X-Ray 09/21/15 0000 Signed Impressions: Service Date/Time: Monday, September 21, 2015 11:31 - CONCLUSION: Normal bowel gas pattern. Tai Taylor Jr., MD Tunnelled Chest Tube Removal 08/05/15 1100 Signed Impressions: Service Date/Time: Wednesday, August 05, 2015 11:00 - CONCLUSION: Uncomplicated chest tube removal. Blaine Jackson MD Chest Tube Change 07/31/15 0000 Signed Impressions: Service Date/Time: Friday, July 31, 2015 14:34 - CONCLUSION: Uncomplicated reposition of previously placed chest tube as above. Blaine Jackson MD Chest Tube Insertion 07/30/15 0000 Signed Impressions: Service Date/Time: July 14:50 - CONCLUSION: Uncomplicated chest tube placement as above. Blaine Jackson MD Catheter Change 07/27/15 0000 Signed Impressions: Service Date/Time: Monday, July 27, 2015 14:43 - CONCLUSION: Uncomplicated gastrostomy tube exchange as above. Blaine Jackson MD Chest CT 07/11/15 0000 Signed Impressions: Service Date/Time: Saturday, July 11, 2015 09:49 - CONCLUSION: Scattered patchy densities significantly improved from previous study. Tiny anterior right basilar pneumothorax. Right-sided chest tube in good position. Néstor Matamoros MD Head CT 06/18/151902 Signed Impressions: Service Date/Time: June 19:31 - CONCLUSION: Diffuse atrophy unchanged. No acute intracranial findings. Kush Briscoe MD Abdomen/Pelvis CT 06/18/151902 Signed Impressions: Service Date/Time: June 19:36 - CONCLUSION: 1. Chronic nonspecific urinary bladder wall thickening. Bladder collapsed with Valdez catheter in place. 2. Chronic bilateral mid to lower lung zone groundglass opacity. 3. Nonobstructing left renal calculus. 4. Distended rectum. Kush Briscoe MD . Procedures * Mechanical ventilation * Chest tube placement on right 07/07/15 * Chest tube removal 07/17/15 . (ALOK JONESP-C) Assessment and Plan Disease Oriented Problem List: (1) Acute respiratory failure Comment: 09/20/15 - Halicat for aspiration - Back on mech vent in ICU. . (2) Chronic respiratory failure (3) Septic shock (4) Pneumonia Comment: Aspiration. Repeat cultures pending. . (5) UTI (urinary tract infection) Comment: Repeat culture pending. . (6) Parkinson disease (7) Moderate malnutrition Symptom Scale: (1) Pain 0-10 Scale: Unable to quantify Comment: Sources of pain might include wound, prolonged bedbound status, contractures, restraints, valedz, vascular access catheters. Appears comfortable on current regimen. ,l (2) Dyspnea 0-10 Scale: Unable to quantify Comment: On mech vent. . (3) Malnutrition 0-10 Scale: Unable to quantify Comment: Tolerating tube feedings. (4) Encephalopathy 0-10 Scale: Unable to quantify Comment: Remains unresponsive. (5) Increased tracheal secretions 0-10 Scale: Unable to quantify Comment: PRN Levsin available. 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 Severe dementia. Daughter, mother, and brother are involved. Spiritual: [employer]oration[employer]. Has been a member for the [employer] and members have provided both community support and spiritual support in the past. Legal: No advance directives. Daughter (Radha Foreman) is legal proxy and lives 4 hours away. She can be quite difficult to contact by phone. Ethical issues impacting care: None. . Important Contacts * Radha Foreman (daughter and proxy) [phone] * Teresa Perea (mother -- lives in [place]) [phone] . Prognosis Patient has end stage Parkinson's with end stage dementia. 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 He is a chronic trach/PEG tube patient with contractures and skin breakdown. Should family continue to want aggressive care, he will continue to go back and forth from facility to hospital until such time that we are no longer able to overcome the sepsis. Patient is hospice eligible whenever family is ready to transition to "comfort measures only." . Code Status: Full Code Plan * Decision making: Patient is incapacitated and will not regain capacity. There is no designated health care surrogate. Daughter, Radha Foreman, is legal proxy under [place] statutes but can be hard to contact at times. * FULL CODE * 09/21/15, 09/21/17, 09/23/15 and 09/24/15 - Left message for daughterRadha via telephone to provide medical update. Requested return call. Spoke with motherTeresa to provide update. * Pain: Sources of pain are unclear as patient in non communicative, but would include prolonged bedbound status; tubes and lines; contractures; wound; etc. Current regimen appears to adequate . No further recommendations at this time. * Dyspnea: Dyspnea due to aspiration pneumonia. Has previously been challenging to get off vent. * Malnutrition: Tolerating tube feeds, but albumin remains low. * Secretions: PRN Levsin available. Remains high risk for aspiration due to secretions and tube feeding. * Palliative care will try and meet with Radha (proxy) in person when she next comes to visit. She continues to insist on aggressive goals in spite of the incredibly bleak prognosis. . . . (ALOK JONES) Attestation To help prompt me to consider important information that might be impacting today's encounter and assessment, information from prior notes written by myself or my colleagues may have been "brought forward" into today's note. My signature on this note, however, is an attestation that I personally performed the exam, history, and/or decision-making noted today, and, unless otherwise indicated, the interactions with patient, family, and staff as well as the review of records all occurred today. I also attest that the listed assessment and stated plan reflect my best clinical judgment today based on the combination of historical information, prior notes, and today's exam/ interactions. When time spent is documented, it refers only to time spent today by the signer, or if indicated, combined time spent today by collaborating physician/nurse practitioner. (ALOK JONES) Collaborating MD Comments Chart reviewed. Case discussed with palliative care INTERLOCKING INSTALLER. Above note reviewed and I concur. . (Pascual Pickard MD) ALOK JONES Sep 24, 2015 13:23 Pascual Pickard MD Oct 20, 2015 18:17
[2015-09-24] MEDS: OLANZapine 5 MG TAB GT SCH (20:35)
[2015-09-24] MEDS: ENOXAPARIN SODIUM 40 MG/0.4 ML SYRINGE SQ SCH (20:35)
[2015-09-25] VITALS (18 sets, daily range): BP systolic 94–135; BP diastolic 54–69; PULSE 63–77; RESP 18–24; TEMP 97–98.4; O2SAT 95–100
[2015-09-25] MEDS: PIPERACIL-TAZO 3.375 GM PREMIX 50 ML IV SCH ×4 (03:21→20:03)
[2015-09-25] MEDS: INSULIN NovoLIN REGULAR SUPPLEMENTAL SCALE SQ SCH ×4 (03:22→21:00)
[2015-09-25 05:53] LABS: AUTOMATED NEUTROPHIL # 15.2 TH/MM3 (1.8-7.7); HEMATOCRIT 29.4 % (39.0-51.0); HEMO FLAGS DIFF FINAL; LYMPH % 3.1 % (9.0-44.0); LYMPHOCYTE # 0.5 TH/MM3 (1.0-4.8); MEAN CELL VOLUME 83.4 FL (80.0-100.0); MEAN CORPUSCULAR HEMOGLOBIN 25.6 PG (27.0-34.0); MEAN CORPUSCULAR HGB CONC 30.7 % (32.0-36.0); NEUT % 94.9 % (16.0-70.0); PLATELET COUNT 165 TH/MM3 (150-450); RED BLOOD COUNT 3.52 MIL/MM3 (4.50-5.90); RED CELL DISTRIBUTION WIDTH 15.2 % (11.6-17.2); WHITE BLOOD COUNT 16.1 TH/MM3 (4.0-11.0)
[2015-09-25 06:28] LABS: BICARBONATE 34.5 MEQ/L (21.0-32.0); POTASSIUM 4.1 MEQ/L (3.5-5.1)
[2015-09-25] MEDS: clonazePAM 1 MG TAB PO SCH ×3 (06:53→21:32)
[2015-09-25] MEDS: CARBIDOPA/LEVODOPA 25 MG/100 MG TAB GT SCH ×3 (06:53→21:33)
[2015-09-25] MEDS: CHLORHEXIDINE 0.12% (ORAL KIT) 15 ML CUP MT SCH ×2 (08:00→20:05)
[2015-09-25] MEDS: GABAPENTIN 300 MG CAP G-TUBE SCH ×2 (09:00→20:04)
[2015-09-25] MEDS: PARoxetine HCL 20 MG TAB G-TUBE SCH (09:00)
[2015-09-25] MEDS: COLLAGENASE OINT 30 GM TUBE TOP SCH (09:00)
[2015-09-25] MEDS: MIDODRINE 5 MG TAB G-TUBE SCH ×2 (09:00→20:04)
[2015-09-25] MEDS: LACTOBACILLUS ACIDOPHILUS TAB PO SCH ×3 (09:00→18:00)
[2015-09-25] MEDS: ARTIFICIAL TEARS OPTH SOLN 15 ML BTL EACH EYE SCH ×3 (09:00→18:00)
[2015-09-25] MEDS: SODIUM CHLORIDE 0.9% FLUSH 5 ML FLUSH IVF SCH ×2 (09:00→20:04)
[2015-09-25] MEDS: methylPREDNISolone SOD SUCC 40 MG/1 ML VIAL IV SCH ×2 (09:00→20:04)
[2015-09-25] MEDS: LANSOPRAZOLE SOLUTAB 30 MG TAB NG SCH (09:00)
[2015-09-25] MEDS: QUEtiapine FUMARATE 25 MG TAB G-TUBE SCH ×2 (09:00→20:04)
--- NOTE | 2015-09-25 09:01 | HHI.CCPN ---
Subjective Remarks/Hospital Course 06/17: Pt is a 54 yr man with multiple medial problems including Parkinson's disease, advanced dementia, hyponatremia, anxiety, pneumonia, GERD, cognitive disorder, and multidrug resistant UTI- ESBL02/19/15 , who resides in a assisted. Pt by report was found by staff in assisted to be less alert and having respiratory difficultly and fevers. Pt was brought to ED adn placed on ventilator. His workup was inclusive of labs, chest xray and ct head and abd/pelvis. WBC 16.4, +UTI, lactic acid 4, troponin ,0.02, BUN/ cre 18/ 0.76. CT head 06/18/15: diffuse atrophy unchanged. No acute intracranial findings ct abd/ pelvis with IV contrast: 06/18/15 Conclusion: 1. Chronic nonspecific urinary bladder wall thickening. Bladder collapsed with Putnam catheter in place. 2.Chronic bilateral mid to lower zone groundglass opacity. 3. Nonobstructing left renal calculus. 4. Distended rectum Pt admitted and fluid and abx ordered. 06/18: Drowsy, easily arousable. On mechanical ventilation via tracheostomy. Tachypneic. Resting tremor noted. 06/19: Drowsy, arousable. On mechanical ventilation via tracheostomy. 06/20: Drowsy, arousable. Remains on mechanical ventilation via tracheostomy. We'll repeat blood cultures, UA and urine cultures. Fluconazole IV added in view of yeast in urine. 07/06: Reconsulted as patient return to the ventilator on a right ventricular due to tachypnea. Low-grade temperatures. Tolerating tube feeding. Extremity encephalopathic demented patient with difficult neurological examination. 07/07: Status post chest tube placement by IR for right pneumothorax 07/06. Afebrile. Tolerating tube feeds. Positive BM. Currently tachypneic on the ventilator. Does not appear to be any acute distress. 07/08: Afebrile. Tolerating tube feeding. He is comfortable currently on CPAP trials 11/10. Positive BM. 07/09: Afebrile. Tolerating tube feeding. Appears comfortable on T bar. Positive BM. 07/10: Afebrile. Eyes are open. Remained on T piece overnight. Tolerating tube feeding. 07/11: MAXIMUM TEMPERATURE 100. Currently 98.6. Eyes are open. On ACV overnight secondary to "tachypnea and sweating". Switching back to PSV trials today. Goal is T piece during daytime, CPAP at night. 07/12: No acute events overnight. On PSV 15/5 -attempt TP up to 6 hours today. No pneumothorax on chest x-ray 07/13: Placed back on full ventilator support for tachypnea. Otherwise clinically unchanged. No fever today 07/14: Patient was on T piece yesterday evening, placed back on PSV overnight, patient mechanical ventilation this morning. Patient appears to be struggling with mechanical ventilation. Patient placed back on PSV with improvement 07/15: Patient placed back on mechanical ventilation last evening due to respiratory rate. It was indicated patient was tachypnea can the 40s. Patient on mechanical ventilation this time with respiration rate mid 20s. Chest tube still in place without any output, chest x-ray still indicating resolution of pneumothorax. 07/16: Patient seen and examined today. Patient placed back on mechanical ventilation overnight due to respiratory rate. Even on mechanical ventilation patient has respiration rate in the 30s. Patient afebrile, blood pressure stable. Continue vent weaning 07/17: Patient seen and examined. Currently afebrile. Currently on CPAP 15/5 @ 40%. Patient is awake with open mouth resting in bed in no apparent acute distress. Tolerating tube feeding. 2 bowel movements. 07/18: No neurological changes. Afebrile. 2 bowel moments. Tolerating tube feeding. We'll attempt TP trials today. On CPAP since 07/15 07/19 No events overnight. On CPAP with PS: 10, PEEP: 5 and FIO2 35%. Afebrile. On no sedation. 07/20 No events overnight. Tolerating CPAP. Afebrile. 07/21: Remains on CPAP. Attempt T piece trial today. Afebrile. One bowel movement. Tolerating tube feeding. 07/22: Afebrile. Positive BM. Tolerating tube feeding. Noted switched tracheostomy to #6 Shiley cuffed fenestrated. Neurologically unchanged 07/23: Afebrile. Positive BM. Tolerating tube feeding. Questionable leak in exchange trach. Place back on a rate/ACV overnight. Insufflated seems to be doing better at the present time. Will check chest x-ray. Possible he might need #6 XLT versus replacement of chronic #8 Shiley. 07/24: Tolerating TP today, RR in low 30s patient appears comfortable. No acute events overnight 07/25: Remains off the ventilator more than 36 hours now. Intermittently tachypneic probably breathing. Chest x-ray was clear yesterday. No acute events reported overnight. PEG not functioning per RN 08/02: Patient was transferred back to critical care service due to continuing ventilator management, tachypnea. Patient clinical status with no significant change. Patient with low-grade fever 100.2, 08/03: Patient seen and examined today. No significant change in clinical status. Patient still with chronic tachypnea. Patient afebrile now. 08/04: Patient seen and examined today. No change in clinical status. Patient still continues to have chronic tachypnea. Patient afebrile. Continue vent weaning 08/05: Patient seen and examined today. Patient had chest tube removed yesterday , chest x-ray shows redevelopment of pneumothorax. Chest tube replaced. Otherwise, patient still on ventilator with tachypnea. Afebrile 08/06: Patient seen and examined today. Patient went to have chest tube placed, repeat chest x-ray did not indicate any pneumothorax. No overnight events. We' ll need to pursue LTAC placement 08/07 No events overnight. On ventilator via trach. Afebrile. 08/08 Patient tolerated CPAP x4 hrs yesterday. Afebrile. On no sedation. 08/09 No events overnight. Tolerated CPAP x 12 hrs yesterday. Afebrile. 08/10 Patient tolerated TP's x 12 hrs yesterday back on ACV overnight. 08/11 No events overnight, currently on TP's with 40% FIO2. Afebrile. 08/12 On CPAP 10/5. Tolerated Tpiece 3 hours earlier today. Afebrile. 08/13 On CPAP 10/5. Not tolerating CPAP as well over last few days and RT notes challenge with suctioning respiratory secretions adequately. Discussing with healthcare proxy regarding exchange trach to 8.0. 08/14 Nursing and RT staff having continued difficulty suctioning respiratory secretions via 6.0 tracheostomy. KAREN Garcia did not consent to stoma dilation and trach upsize yesterday but said she would call back and let me know but no return call. Contacted again today and left a message. Afebrile. On CPAP 10/5. Brow furrowing on exam, appears to be in pain but pain not localizable. Tolerating tube feeds, had BM yesterday 08/15 Not tolerating CPAP today. Contacted healthcare surrogate again and discussed need for trach change. She consented and trach was dilated and up- sized to 8.0 Distal XLT to facilitate pulmonary toilet and to address volume leak. 08/16 No events overnight. Remains on ventilator via trach. Afebrile. Tolerating TF. 08/17 No events overnight. Afebrile. 08/18 Patient tolerated CPAP x 4 hrs yesterday. Afebrile.On ventilator via trach. 08/19 On CPAP 25/06. Temp max 99.3 08/20 Stenotrophomonas in sputum, started on Levaquin per ID. Temp max 99.8. On CPAP 20/09. Tube feeds were held because PEG was clogged but now PEG is functioning. 08/21 No events overnight. Afebrile. Remains on ventilator via trach. Has been tolerating CPAP trials for last 2 days. 08/22 No events overnight. Afebrile , Has been on CPAP all night with PS: 20, PEEP; 5 and FIO2 35%. 08/23 No events overnight. Remains on CPAP, T:99.9 08/24 No events overnight. On CPAP PS 10, PEEP; 5 and FIO2 35% overnight. Afebrile. 08/25 No events overnight. Afebrile. On CPAP overnight with PS 8, PEEP: 5 and FIO2 35%, afebrile. Tolerating TF. 08/26 Tolerating Tpiece. 08/27 Tolerated Tpiece yesterday and overnight. However this evening desaturated and was placed back on CPAP. Dr. Mistry attempted to update daughter Radha Foreman and discuss his overall poor prognosis for recovery, but call got disconnected midway through call and could not reach her back 08/28 On PSV 10/5 40% today. Afebrile. 08/29 On CPAP overnight. Now on Tpiece 70% per pulmonology. Increased yellow secretions noted. Temp max 99.1 Nursing staff expresses concern that he appears uncomfortable during all nursing care. Called elsa Garcia to update , no answer, left message to call me. 08/30: On CPAP overnight. Currently on T piece at 45%. Currently afebrile. Positive BM. Tolerating tube feeding. 08/31: On CPAP overnight. Will return T piece at 35%. MAXIMUM TEMPERATURE 99.6. 5 bowel movements. Tolerating tube feeds. Neurological examination unchanged. 09/01: Tmax 99.2. Currently afebrile. Currently in TPs at 35%. 7 bowel movement overnight. Tolerating tube feeding. Subjective: 09/19: Halicat called secondary to aspiration on Gen. medical floor. Transfer to ICU and placed on mechanical ventilation. ABG shows CO2 retention. Etc. revealed no acute cardiac 20 finds however copious message to feed suctioned from trach tube 09/20 No events overnight. Afebrile. On ACV with RR 16, TV 500, PEEP: 5 and FIO2 40%. 09/21 No events overnight. Afebrile. 09/22 No events overnight. Tolerated CPAP all day yesterday with PS 12, PEEP:5 and FIO2 35%. Afebrile. 09/23 No events overnight. On no sedation Tolerated CPAP yesterday. Had T:100.3 last night. 09/24 Patient tolerated TP's x 6 hrs yesterday On CPAP 12/5 with 35% FIO2 overnight. Afebrile. Objective - Vital Signs Date Time Temp Pulse Resp B/P Pulse Ox O2 Delivery O2 Flow Rate FiO2 09/25/15 07:38 98 T-piece 40 09/25/15 06:00 70 09/25/15 04:00 98.2 22 135/67 09/24/15 14:00 4.00 Intake and Output 09/24/15 09/24/15 09/25/15 08:00 16:00 00:00 Intake Total 530 ml 1137 ml 489 ml Output Total 275 ml 300 ml 300 ml Balance 255 ml 837 ml 189 ml Result Diagram: 09/25/15 0455 09/25/15 0455 Other Results Laboratory Tests Test 09/25/15 04:55 White Blood Count 16.1 TH/MM3 Red Blood Count 3.52 MIL/MM3 Hemoglobin 9.0 GM/DL Hematocrit 29.4 % Mean Corpuscular Volume 83.4 FL Mean Corpuscular Hemoglobin 25.6 PG Mean Corpuscular Hemoglobin 30.7 % Concent Red Cell Distribution Width 15.2 % Platelet Count 165 TH/MM3 Mean Platelet Volume 9.7 FL Neutrophils (%) (Auto) 94.9 % Lymphocytes (%) (Auto) 3.1 % Monocytes (%) (Auto) 2.0 % Eosinophils (%) (Auto) 0.0 % Basophils (%) (Auto) 0.0 % Neutrophils # (Auto) 15.2 TH/MM3 Lymphocytes # (Auto) 0.5 TH/MM3 Monocytes # (Auto) 0.3 TH/MM3 Eosinophils # (Auto) 0.0 TH/MM3 Basophils # (Auto) 0.0 TH/MM3 CBC Comment DIFF FINAL Differential Comment Sodium Level 143 MEQ/L Potassium Level 4.1 MEQ/L Chloride Level 105 MEQ/L Carbon Dioxide Level 34.5 MEQ/L Anion Gap 4 MEQ/L Blood Urea Nitrogen 23 MG/DL Creatinine 0.40 MG/DL Estimat Glomerular Filtration 226 ML/MIN Rate Random Glucose 219 MG/DL Calcium Level 8.2 MG/DL Phosphorus Level 2.1 MG/DL Imaging Last Impressions Chest X-Ray 09/21/15 0600 Signed Impressions: Service Date/Time: Monday, September 21, 2015 04:39 - CONCLUSION: No acute disease. Erlin Barajas MD Abdomen X-Ray 09/21/15 0000 Signed Impressions: Service Date/Time: Monday, September 21, 2015 11:31 - CONCLUSION: Normal bowel gas pattern. Tai Taylor Jr., MD Tunnelled Chest Tube Removal 08/05/15 1100 Signed Impressions: Service Date/Time: Wednesday, August 05, 2015 11:00 - CONCLUSION: Uncomplicated chest tube removal. Blaine Jackson MD Chest Tube Change 07/31/15 0000 Signed Impressions: Service Date/Time: Friday, July 31, 2015 14:34 - CONCLUSION: Uncomplicated reposition of previously placed chest tube as above. Blaine Jackson MD Chest Tube Insertion 07/30/15 0000 Signed Impressions: Service Date/Time: July 14:50 - CONCLUSION: Uncomplicated chest tube placement as above. Blaine Jackson MD Catheter Change 07/27/15 0000 Signed Impressions: Service Date/Time: Monday, July 27, 2015 14:43 - CONCLUSION: Uncomplicated gastrostomy tube exchange as above. Blaine Jackson MD Chest CT 07/11/15 0000 Signed Impressions: Service Date/Time: Saturday, July 11, 2015 09:49 - CONCLUSION: Scattered patchy densities significantly improved from previous study. Tiny anterior right basilar pneumothorax. Right-sided chest tube in good position. Néstor Matamoros MD Head CT 06/18/151902 Signed Impressions: Service Date/Time: June 19:31 - CONCLUSION: Diffuse atrophy unchanged. No acute intracranial findings. Kush Briscoe MD Abdomen/Pelvis CT 06/18/151902 Signed Impressions: Service Date/Time: June 19:36 - CONCLUSION: 1. Chronic nonspecific urinary bladder wall thickening. Bladder collapsed with Putnam catheter in place. 2. Chronic bilateral mid to lower lung zone groundglass opacity. 3. Nonobstructing left renal calculus. 4. Distended rectum. Kush Briscoe MD Objective Remarks GENERAL: 54-year-old male, cachectic, debilitated with contractures on ACV VT tracheostomy 35% HEENT: NC/AT. PERRL. MMM. OP without erythema or exudates NECK: No JVD. Supple. 8.0 Distal XLT trach in place CARDIAC: RRR. S1/S2. No S4. No murmurs, clicks gallops or rubs. LUNGS: B/L eqal air entry with few coarse BS ABDOMEN: S/NT/ND. Positive BS EXTREMITIES: 1+ dependent pedal edema. Contractures and deformities of fingers. Stage III coccyx/sacral decubitus ulcer NEUROLOGY: Patient with significant contractures of the bilat lower extremity, upper extremities. Eyes open spontaneously. Temporal and facial muscle wasting , muscular atrophy all extremities. Procedures 07/26- PEG replacement 07/29- right pigtail catheter placement for new pneumothorax 07/29 Date of Insertion: Jul 30, 2015 A/P Assessment and Plan Neuro/Psych: Parkinson's disease Cognitive disorder not otherwise specified Chronic encephalopathy Dementia Depression On no sedation, monitor neuro status CT head 06/18/15: - diffuse atrophy unchanged. No acute intracranial findings Continue Sinemet 25/100 q8 via PEG, Seroquel 50 mg twice a day, olanzapine 5 mg a night, Klonopin 2 mg every 8 hours, Paxil 20 daily Continue Lortab when necessary pain and fentanyl patch 50 g every 3 days for pain management. Fentanyl bolus prn breakthrough pain or if needed for turning/ nursing care/etc. Resp: Acute on chronic respiratory failure Chronic trach #8 Shiley distal XLT Pneumonia - resolved Right pneumothorax status post pigtail catheter 2 (resolved) Continue with vent support keep sat >92% Ventilator bundle, pulm toilet, trach care, CPAP?TP's trials as steven. Check CXR Pulmonary Dr. Restrepo following. Decrease Solu-Medrol 30 mg BID Exchanged to 8 Distal XLT on 08/15 to facilitate suctioning, trach care. Bronchodilators ( DuoNeb) CXR 09/20: No acute disease. Cardiac History of orthostasis History of CAD History dyslipidemia History of hypertension Continue Midodrine 5 mg twice a day. On 2.5 twice a day at home Monitor HR and BP keep MAP>65mmHg. Lactic acid 1.8 GI: Chronic moderate protein energy malnutrition Dysphagia Status post PEG Internal hemorrhoids Gastroesophageal reflux disease - On TF- Jevity 1.5 @60 cc an hour - KUB: normal bowel gas pattern - Currently Prevacid 30 mg per PEG tube daily for GERD FEN/Renal: Nonobstructing left renal calculus - Monitor renal function, I/O's. electrolytes replacement per protocol. ID: 09/21 Urine cx: Pseudomonas 09/19 Sputum cx: Pseudomonas, Kleb pneumonia ESBL pos Candiduria (cele tropicalis urine cx 08/17) ESBL positive Klebsiella/Pseudomonas pneumonia Stenotrophomonas in sputum 08/17 MRSA colonization sepsis UTI Klebsiella ESBL positive (has been treated) S/p Diflucan 08/17-08/26 . Levaquin 08/20--08/26 for Stenotrophomonas. Completed course of meropenem for 08/11-08/20 for Klebsiella ESBL/pseudomonas pneumonia. On Lactinex tid Continue with Zosyn and re consult ID. Monitor for signs of infections ( Fever, WBC) CXR 09/20: No acute disease Pertinent cultures 09/21 Urine cx: Pseudomonas 09/19 Sputum cx: Pseudomonas, Kleb pneumonia ESBL pos Urine cx 08/17 - cele tropicalis Blood culture 08/17 negative sputum culture 08/17 - pseudomonas and Stenotrophomonas maltophilia. Urine culture: 08/02 Klebsiella pneumonia ESBL positive Urine culture: 08/02 Cele Tropicalis, C. Glabrata Sputum culture: 08/02 Pseudomonas, Klebsiella pneumonia ESBL positive Blood culture: 08/02 yeast species, Cele glabrata, Cele tropicalis - History of Multidrug resistant UTI- ESBL 02/19/15 , MRSA + 03/20/15 - Cele glabrata in urine 03/19/15 - Rechecked blood, sputum and urine cultures 07/06 no growth - 06/17 - blood cultures 2 - CONS/staph epi - 06/17 - sputum - ESBL positive Klebsiella/Pseudomonas Treated 15 days with tobramycin aerosols twice a day. - 06/17 - urine - C. glabrata/tropicalis - treated with Diflucan Endo: On SSI ( medium) with accuchecks Q6. Add Levemir 7u Q12 Heme Normocytic Anemia - Monitor CBC MSK Bilateral lower extremity Contractures Stage III sacral decubitus present on admission - Wound care and PT on case Prophylaxis - GI - Prevacid - DVT - SCDs/ Lovenox. ACCESS: PIVs CCT 30 mins Antonio Carr MD Sep 25, 2015 09:01
[2015-09-25] MEDS: fentaNYL 50 MCG/HR PATCH TD SCH (09:49)
--- NOTE | 2015-09-25 10:01 | RADRPT ---
EXAM DATE/TIME: 09/25/2015 09:28 [facility] COMPARISON: CHEST SINGLE AP, September 21, 2015, 4:39. INDICATIONS : Respiratory failure. MEDICAL HISTORY : Hypertension. Diabetes mellitus type II. SURGICAL HISTORY : None. ENCOUNTER: Subsequent ACUITY: 1 month PAIN SCORE: Non-responsive. LOCATION: Bilateral chest FINDINGS: A single view of the chest demonstrates the lungs to be symmetrically aerated without evidence of mas s, infiltrate or effusion. The cardiomediastinal contours are unremarkable. Tracheostomy tube is not ed. Osseous structures are intact. CONCLUSION: No acute disease. Tai Taylor Jr., MD on September 25, 2015 at 9:58 Board Certified Radiologist. This report was verified electronically.
[2015-09-25] MEDS: INSULIN DETEMIR 100 UNITS/ML VIAL SQ SCH ×2 (13:46→20:03)
--- NOTE | 2015-09-25 19:33 | HHI.PR ---
Subjective Remarks Off vent support. Back to ICU for poss Aspiration. on T Bar 35 %. Tolerates CPAP at night . Neuro status same.On tube feeds. CXR only shows chronic changes. Objective Vital Signs Date Time Temp Pulse Resp B/P Pulse Ox O2 Delivery O2 Flow Rate FiO2 09/25/15 18:00 65 09/25/15 16:25 100 35 09/25/15 16:00 35 09/25/15 16:00 69 09/25/15 16:00 97.9 69 24 101/54 100 09/25/15 14:06 97 35 09/25/15 14:00 74 09/25/15 12:00 98.4 74 22 113/56 97 09/25/15 12:00 77 09/25/15 10:49 18 09/25/15 10:00 76 09/25/15 08:00 97.6 75 18 133/62 97 09/25/15 08:00 75 09/25/15 07:38 98 T-piece 40 09/25/15 06:00 70 09/25/15 04:33 99 35 09/25/15 04:00 71 09/25/15 04:00 35 09/25/15 04:00 98.2 71 22 135/67 99 09/25/15 02:00 63 09/25/15 00:00 68 09/25/15 00:00 98.2 67 20 130/69 95 09/25/15 00:00 35 09/24/15 23:59 97 35 09/24/15 22:00 84 09/24/15 20:00 98.0 83 22 121/62 95 09/24/15 20:00 35 09/24/15 20:00 83 09/24/15 19:57 97 35 I/O 09/24/15 09/24/15 09/24/15 09/25/15 09/25/15 09/25/15 07:00 15:00 23:00 07:00 15:00 23:00 Intake Total 530 ml 1137 ml 489 ml 480 ml 884 ml Output Total 275 ml 300 ml 300 ml 400 ml 500 ml Balance 255 ml 837 ml 189 ml 80 ml 384 ml Intake Oral 0 ml 0 ml 0 ml IV Total 60 ml 214 ml 112 ml 109 ml 194 ml Tube Feeding 350 ml 623 ml 377 ml 371 ml 490 ml Other 120 ml 300 ml 200 ml Output Urine Total 275 ml 300 ml 300 ml 400 ml 500 ml # Bowel Movements 1 2 0 1 2 Result Diagram: 09/25/15 0455 09/25/15 0455 Objective Remarks This is a thin white male who is unresponsive ,with a trach tube in place. HEENT: Pupils are equal and reactive to light. Throat dry. CHEST:Decreased breath sounds with few wheezes scattered. CARDIOVASCULAR: S1 and S2 is normal. ABDOMEN: Soft, nondistended. BS +. He has a PEG tube in place. EXTREMITIES: No edema.muscle wasting. ulcer over sacrum. NEURO: Lethargic and has weak extremities .Reflexes not elicited. Assessment and Plan Assessment and Plan IMPRESSION 1. Respiratory failure, resolving 2. Sepsis, resolving. 3. UTI 4. Tracheobronchitis 5. Parkinson's disease 6. Dementia. 7. Severe Deconditioning. Plan : 1. Cont PSV, /, FIO2 35 % at Nite. 2. Nebs qid , duoneb. 3. Cont Tube feeds at 60 CC 4. CBC,BMP 5. Antibiotics per ID. 6. Cont Trach toilet and lavage. 8. T Tube 40 % daytime. Darren Kiser MD Sep 25, 2015 19:33
[2015-09-25] MEDS: OLANZapine 5 MG TAB GT SCH (20:04)
[2015-09-25] MEDS: ENOXAPARIN SODIUM 40 MG/0.4 ML SYRINGE SQ SCH (21:33)
[2015-09-26] VITALS (15 sets, daily range): BP systolic 92–138; BP diastolic 52–70; PULSE 61–77; RESP 20–27; TEMP 97.5–98.8; O2SAT 96–99
[2015-09-26] MEDS: INSULIN NovoLIN REGULAR SUPPLEMENTAL SCALE SQ SCH ×4 (03:00→21:00)
[2015-09-26] MEDS: PIPERACIL-TAZO 3.375 GM PREMIX 50 ML IV SCH ×3 (03:23→17:07)
[2015-09-26] MEDS: CARBIDOPA/LEVODOPA 25 MG/100 MG TAB GT SCH ×3 (05:46→21:07)
[2015-09-26] MEDS: clonazePAM 1 MG TAB PO SCH ×3 (05:46→21:07)
--- NOTE | 2015-09-26 07:14 | HHI.CCPN ---
Subjective Remarks/Hospital Course 06/17: Pt is a 54 yr man with multiple medial problems including Parkinson's disease, advanced dementia, hyponatremia, anxiety, pneumonia, GERD, cognitive disorder, and multidrug resistant UTI- ESBL02/19/15 , who resides in a [facility]. Pt by report was found by staff in [facility] to be less alert and having respiratory difficultly and fevers. Pt was brought to ED adn placed on ventilator. His workup was inclusive of labs, chest xray and ct head and abd/pelvis. WBC 16.4, +UTI, lactic acid 4, troponin ,0.02, BUN/ cre 18/ 0.76. CT head 06/18/15: diffuse atrophy unchanged. No acute intracranial findings ct abd/ pelvis with IV contrast: 06/18/15 Conclusion: 1. Chronic nonspecific urinary bladder wall thickening. Bladder collapsed with Putnam catheter in place. 2.Chronic bilateral mid to lower zone groundglass opacity. 3. Nonobstructing left renal calculus. 4. Distended rectum Pt admitted and fluid and abx ordered. 06/18: Drowsy, easily arousable. On mechanical ventilation via tracheostomy. Tachypneic. Resting tremor noted. 06/19: Drowsy, arousable. On mechanical ventilation via tracheostomy. 06/20: Drowsy, arousable. Remains on mechanical ventilation via tracheostomy. We'll repeat blood cultures, UA and urine cultures. Fluconazole IV added in view of yeast in urine. 07/06: Reconsulted as patient return to the ventilator on a right ventricular due to tachypnea. Low-grade temperatures. Tolerating tube feeding. Extremity encephalopathic demented patient with difficult neurological examination. 07/07: Status post chest tube placement by IR for right pneumothorax 07/06. Afebrile. Tolerating tube feeds. Positive BM. Currently tachypneic on the ventilator. Does not appear to be any acute distress. 07/08: Afebrile. Tolerating tube feeding. He is comfortable currently on CPAP trials 11/10. Positive BM. 07/09: Afebrile. Tolerating tube feeding. Appears comfortable on T bar. Positive BM. 07/10: Afebrile. Eyes are open. Remained on T piece overnight. Tolerating tube feeding. 07/11: MAXIMUM TEMPERATURE 100. Currently 98.6. Eyes are open. On ACV overnight secondary to "tachypnea and sweating". Switching back to PSV trials today. Goal is T piece during daytime, CPAP at night. 07/12: No acute events overnight. On PSV 15/5 -attempt TP up to 6 hours today. No pneumothorax on chest x-ray 07/13: Placed back on full ventilator support for tachypnea. Otherwise clinically unchanged. No fever today 07/14: Patient was on T piece yesterday evening, placed back on PSV overnight, patient mechanical ventilation this morning. Patient appears to be struggling with mechanical ventilation. Patient placed back on PSV with improvement 07/15: Patient placed back on mechanical ventilation last evening due to respiratory rate. It was indicated patient was tachypnea can the 40s. Patient on mechanical ventilation this time with respiration rate mid 20s. Chest tube still in place without any output, chest x-ray still indicating resolution of pneumothorax. 07/16: Patient seen and examined today. Patient placed back on mechanical ventilation overnight due to respiratory rate. Even on mechanical ventilation patient has respiration rate in the 30s. Patient afebrile, blood pressure stable. Continue vent weaning 07/17: Patient seen and examined. Currently afebrile. Currently on CPAP 15/5 @ 40%. Patient is awake with open mouth resting in bed in no apparent acute distress. Tolerating tube feeding. 2 bowel movements. 07/18: No neurological changes. Afebrile. 2 bowel moments. Tolerating tube feeding. We'll attempt TP trials today. On CPAP since 07/15 07/19 No events overnight. On CPAP with PS: 10, PEEP: 5 and FIO2 35%. Afebrile. On no sedation. 07/20 No events overnight. Tolerating CPAP. Afebrile. 07/21: Remains on CPAP. Attempt T piece trial today. Afebrile. One bowel movement. Tolerating tube feeding. 07/22: Afebrile. Positive BM. Tolerating tube feeding. Noted switched tracheostomy to #6 Shiley cuffed fenestrated. Neurologically unchanged 07/23: Afebrile. Positive BM. Tolerating tube feeding. Questionable leak in exchange trach. Place back on a rate/ACV overnight. Insufflated seems to be doing better at the present time. Will check chest x-ray. Possible he might need #6 XLT versus replacement of chronic #8 Shiley. 07/24: Tolerating TP today, RR in low 30s patient appears comfortable. No acute events overnight 07/25: Remains off the ventilator more than 36 hours now. Intermittently tachypneic probably breathing. Chest x-ray was clear yesterday. No acute events reported overnight. PEG not functioning per RN 08/02: Patient was transferred back to critical care service due to continuing ventilator management, tachypnea. Patient clinical status with no significant change. Patient with low-grade fever 100.2, 08/03: Patient seen and examined today. No significant change in clinical status. Patient still with chronic tachypnea. Patient afebrile now. 08/04: Patient seen and examined today. No change in clinical status. Patient still continues to have chronic tachypnea. Patient afebrile. Continue vent weaning 08/05: Patient seen and examined today. Patient had chest tube removed yesterday , chest x-ray shows redevelopment of pneumothorax. Chest tube replaced. Otherwise, patient still on ventilator with tachypnea. Afebrile 08/06: Patient seen and examined today. Patient went to have chest tube placed, repeat chest x-ray did not indicate any pneumothorax. No overnight events. We' ll need to pursue LTAC placement 08/07 No events overnight. On ventilator via trach. Afebrile. 08/08 Patient tolerated CPAP x4 hrs yesterday. Afebrile. On no sedation. 08/09 No events overnight. Tolerated CPAP x 12 hrs yesterday. Afebrile. 08/10 Patient tolerated TP's x 12 hrs yesterday back on ACV overnight. 08/11 No events overnight, currently on TP's with 40% FIO2. Afebrile. 08/12 On CPAP 10/5. Tolerated Tpiece 3 hours earlier today. Afebrile. 08/13 On CPAP 10/5. Not tolerating CPAP as well over last few days and RT notes challenge with suctioning respiratory secretions adequately. Discussing with healthcare proxy regarding exchange trach to 8.0. 08/14 Nursing and RT staff having continued difficulty suctioning respiratory secretions via 6.0 tracheostomy. KAREN Garcia did not consent to stoma dilation and trach upsize yesterday but said she would call back and let me know but no return call. Contacted again today and left a message. Afebrile. On CPAP 10/5. Brow furrowing on exam, appears to be in pain but pain not localizable. Tolerating tube feeds, had BM yesterday 08/15 Not tolerating CPAP today. Contacted healthcare surrogate again and discussed need for trach change. She consented and trach was dilated and up- sized to 8.0 Distal XLT to facilitate pulmonary toilet and to address volume leak. 08/16 No events overnight. Remains on ventilator via trach. Afebrile. Tolerating TF. 08/17 No events overnight. Afebrile. 08/18 Patient tolerated CPAP x 4 hrs yesterday. Afebrile.On ventilator via trach. 08/19 On CPAP 25/06. Temp max 99.3 08/20 Stenotrophomonas in sputum, started on Levaquin per ID. Temp max 99.8. On CPAP 20/09. Tube feeds were held because PEG was clogged but now PEG is functioning. 08/21 No events overnight. Afebrile. Remains on ventilator via trach. Has been tolerating CPAP trials for last 2 days. 08/22 No events overnight. Afebrile , Has been on CPAP all night with PS: 20, PEEP; 5 and FIO2 35%. 08/23 No events overnight. Remains on CPAP, T:99.9 08/24 No events overnight. On CPAP PS 10, PEEP; 5 and FIO2 35% overnight. Afebrile. 08/25 No events overnight. Afebrile. On CPAP overnight with PS 8, PEEP: 5 and FIO2 35%, afebrile. Tolerating TF. 08/26 Tolerating Tpiece. 08/27 Tolerated Tpiece yesterday and overnight. However this evening desaturated and was placed back on CPAP. Dr. Mistry attempted to update daughter Radha Foreman and discuss his overall poor prognosis for recovery, but call got disconnected midway through call and could not reach her back 08/28 On PSV 10/5 40% today. Afebrile. 08/29 On CPAP overnight. Now on Tpiece 70% per pulmonology. Increased yellow secretions noted. Temp max 99.1 Nursing staff expresses concern that he appears uncomfortable during all nursing care. Called elsa Garcia to update , no answer, left message to call me. 08/30: On CPAP overnight. Currently on T piece at 45%. Currently afebrile. Positive BM. Tolerating tube feeding. 08/31: On CPAP overnight. Will return T piece at 35%. MAXIMUM TEMPERATURE 99.6. 5 bowel movements. Tolerating tube feeds. Neurological examination unchanged. 09/01: Tmax 99.2. Currently afebrile. Currently in TPs at 35%. 7 bowel movement overnight. Tolerating tube feeding. Subjective: 09/19: Halicat called secondary to aspiration on Gen. medical floor. Transfer to ICU and placed on mechanical ventilation. ABG shows CO2 retention. Etc. revealed no acute cardiac 20 finds however copious message to feed suctioned from trach tube 09/20 No events overnight. Afebrile. On ACV with RR 16, TV 500, PEEP: 5 and FIO2 40%. 09/21 No events overnight. Afebrile. 09/22 No events overnight. Tolerated CPAP all day yesterday with PS 12, PEEP:5 and FIO2 35%. Afebrile. 09/23 No events overnight. On no sedation Tolerated CPAP yesterday. Had T:100.3 last night. 09/24 Patient tolerated TP's x 6 hrs yesterday On CPAP 12/5 with 35% FIO2 overnight. Afebrile. 09/25 No events overnight. On CPAP overnight and TP's during day. Tolerating tube feeds. Objective - Vital Signs Date Time Temp Pulse Resp B/P Pulse Ox O2 Delivery O2 Flow Rate FiO2 09/26/15 06:00 71 09/26/15 04:00 97.5 22 107/56 99 09/26/15 04:00 35 09/25/15 07:38 T-piece 09/24/15 14:00 4.00 Intake and Output 09/25/15 09/25/15 09/26/15 08:00 16:00 00:00 Intake Total 480 ml 884 ml 498 ml Output Total 400 ml 500 ml 300 ml Balance 80 ml 384 ml 198 ml Result Diagram: 09/25/15 0455 09/25/15 0455 Imaging Last Impressions Chest X-Ray 09/25/15 0000 Signed Impressions: Service Date/Time: Friday, September 25, 2015 09:28 - CONCLUSION: No acute disease. Tai Taylor Jr., MD Abdomen X-Ray 09/21/15 0000 Signed Impressions: Service Date/Time: Monday, September 21, 2015 11:31 - CONCLUSION: Normal bowel gas pattern. Tai Taylor Jr., MD Tunnelled Chest Tube Removal 08/05/15 1100 Signed Impressions: Service Date/Time: Wednesday, August 05, 2015 11:00 - CONCLUSION: Uncomplicated chest tube removal. Blaine Jackson MD Chest Tube Change 07/31/15 0000 Signed Impressions: Service Date/Time: Friday, July 31, 2015 14:34 - CONCLUSION: Uncomplicated reposition of previously placed chest tube as above. Blaine Jackson MD Chest Tube Insertion 07/30/15 0000 Signed Impressions: Service Date/Time: July 14:50 - CONCLUSION: Uncomplicated chest tube placement as above. Blaine Jackson MD Catheter Change 07/27/15 0000 Signed Impressions: Service Date/Time: Monday, July 27, 2015 14:43 - CONCLUSION: Uncomplicated gastrostomy tube exchange as above. Blaine Jackson MD Chest CT 07/11/15 0000 Signed Impressions: Service Date/Time: Saturday, July 11, 2015 09:49 - CONCLUSION: Scattered patchy densities significantly improved from previous study. Tiny anterior right basilar pneumothorax. Right-sided chest tube in good position. Néstor Matamoros MD Head CT 06/18/151902 Signed Impressions: Service Date/Time: June 19:31 - CONCLUSION: Diffuse atrophy unchanged. No acute intracranial findings. Kush Briscoe MD Abdomen/Pelvis CT 06/18/151902 Signed Impressions: Service Date/Time: June 19:36 - CONCLUSION: 1. Chronic nonspecific urinary bladder wall thickening. Bladder collapsed with Putnam catheter in place. 2. Chronic bilateral mid to lower lung zone groundglass opacity. 3. Nonobstructing left renal calculus. 4. Distended rectum. Kush Briscoe MD Objective Remarks GENERAL: 54-year-old male, cachectic, debilitated with contractures on ACV VT tracheostomy 35% HEENT: NC/AT. PERRL. MMM. OP without erythema or exudates NECK: No JVD. Supple. 8.0 Distal XLT trach in place CARDIAC: RRR. S1/S2. No S4. No murmurs, clicks gallops or rubs. LUNGS: B/L eqal air entry with few coarse BS ABDOMEN: S/NT/ND. Positive BS EXTREMITIES: 1+ dependent pedal edema. Contractures and deformities of fingers. Stage III coccyx/sacral decubitus ulcer NEUROLOGY: Patient with significant contractures of the bilat lower extremity, upper extremities. Eyes open spontaneously. Temporal and facial muscle wasting , muscular atrophy all extremities. Procedures 07/26- PEG replacement 07/29- right pigtail catheter placement for new pneumothorax 07/29 Date of Insertion: Jul 30, 2015 A/P Assessment and Plan Neuro/Psych: Parkinson's disease Cognitive disorder not otherwise specified Chronic encephalopathy Dementia Depression On no sedation, monitor neuro status CT head 06/18/15: - diffuse atrophy unchanged. No acute intracranial findings Continue Sinemet 25/100 q8 via PEG, Seroquel 50 mg twice a day, olanzapine 5 mg a night, Klonopin 2 mg every 8 hours, Paxil 20 daily Continue Lortab when necessary pain and fentanyl patch 50 g every 3 days for pain management. Fentanyl bolus prn breakthrough pain or if needed for turning/ nursing care/etc. Resp: Acute on chronic respiratory failure Chronic trach #8 Shiley distal XLT Pneumonia - resolved Right pneumothorax status post pigtail catheter 2 (resolved) Continue with vent support keep sat >92% Ventilator bundle, pulm toilet, trach care, CPAP/TP's trials as steven. Pulmonary Dr. Restreop following. On Solu-Medrol 30 mg BID Exchanged to 8 Distal XLT on 08/15 to facilitate suctioning, trach care. Bronchodilators ( DuoNeb) CXR 09/20, 09/24 : No acute disease. Cardiac History of orthostasis History of CAD History dyslipidemia History of hypertension Continue Midodrine 5 mg twice a day. On 2.5 twice a day at home Monitor HR and BP keep MAP>65mmHg. Lactic acid 1.8 GI: Chronic moderate protein energy malnutrition Dysphagia Status post PEG Internal hemorrhoids Gastroesophageal reflux disease - On TF- Jevity 1.5 @60 cc an hour - KUB: normal bowel gas pattern - Currently Prevacid 30 mg per PEG tube daily for GERD FEN/Renal: Nonobstructing left renal calculus - Monitor renal function, I/O's. electrolytes replacement per protocol. ID: 09/21 Urine cx: Pseudomonas ? colonized 09/19 Sputum cx: Pseudomonas, Kleb pneumonia ESBL pos Candiduria (cele tropicalis urine cx 08/17) ESBL positive Klebsiella/Pseudomonas pneumonia Stenotrophomonas in sputum 08/17 MRSA colonization sepsis UTI Klebsiella ESBL positive (has been treated) S/p Diflucan 08/17-08/26 . Levaquin 08/20--08/26 for Stenotrophomonas. Completed course of meropenem for 08/11-08/20 for Klebsiella ESBL/pseudomonas pneumonia. On Lactinex tid Continue with Zosyn. Monitor for signs of infections ( Fever, WBC) ID follow up Pertinent cultures 09/21 Urine cx: Pseudomonas 09/19 Sputum cx: Pseudomonas, Kleb pneumonia ESBL pos Urine cx 08/17 - cele tropicalis Blood culture 08/17 negative sputum culture 08/17 - pseudomonas and Stenotrophomonas maltophilia. Urine culture: 08/02 Klebsiella pneumonia ESBL positive Urine culture: 08/02 Cele Tropicalis, C. Glabrata Sputum culture: 08/02 Pseudomonas, Klebsiella pneumonia ESBL positive Blood culture: 08/02 yeast species, Cele glabrata, Cele tropicalis - History of Multidrug resistant UTI- ESBL 02/19/15 , MRSA + 03/20/15 - Cele glabrata in urine 03/19/15 - Rechecked blood, sputum and urine cultures 07/06 no growth - 06/17 - blood cultures 2 - CONS/staph epi - 06/17 - sputum - ESBL positive Klebsiella/Pseudomonas Treated 15 days with tobramycin aerosols twice a day. - 06/17 - urine - C. glabrata/tropicalis - treated with Diflucan Endo: On SSI ( medium) with accuchecks Q6. Levemir 7u Q12 Heme Normocytic Anemia - Monitor CBC MSK Bilateral lower extremity Contractures Stage III sacral decubitus present on admission - Wound care and PT on case Prophylaxis - GI - Prevacid - DVT - SCDs/ Lovenox. Follow up on labs today ACCESS: PIVs Will sign off and transfer care to Antonio Bower MD Sep 26, 2015 07:14
[2015-09-26 07:46] LABS: AUTOMATED NEUTROPHIL # 14.1 TH/MM3 (1.8-7.7); EOSINOPHIL % 0.1 % (0.0-4.0); HEMATOCRIT 30.2 % (39.0-51.0); HEMO FLAGS DIFF FINAL; LYMPH % 3.7 % (9.0-44.0); LYMPHOCYTE # 0.6 TH/MM3 (1.0-4.8); MEAN CELL VOLUME 83.2 FL (80.0-100.0); MEAN CORPUSCULAR HGB CONC 31.2 % (32.0-36.0); MONO % 1.7 % (0.0-8.0); NEUT % 94.5 % (16.0-70.0); PLATELET COUNT 188 TH/MM3 (150-450); RED BLOOD COUNT 3.63 MIL/MM3 (4.50-5.90); RED CELL DISTRIBUTION WIDTH 15.4 % (11.6-17.2); WHITE BLOOD COUNT 14.9 TH/MM3 (4.0-11.0)
[2015-09-26] MEDS: CHLORHEXIDINE 0.12% (ORAL KIT) 15 ML CUP MT SCH ×2 (08:00→21:08)
[2015-09-26 08:03] LABS: BICARBONATE 36.2 MEQ/L (21.0-32.0); MAGNESIUM 2.2 MG/DL (1.5-2.5); POTASSIUM 4.2 MEQ/L (3.5-5.1)
[2015-09-26] MEDS: ARTIFICIAL TEARS OPTH SOLN 15 ML BTL EACH EYE SCH ×3 (09:00→17:12)
[2015-09-26] MEDS: SODIUM CHLORIDE 0.9% FLUSH 5 ML FLUSH IVF SCH ×2 (09:00→21:07)
[2015-09-26] MEDS: QUEtiapine FUMARATE 25 MG TAB G-TUBE SCH ×2 (09:00→21:07)
[2015-09-26] MEDS: COLLAGENASE OINT 30 GM TUBE TOP SCH (09:00)
[2015-09-26] MEDS: INSULIN DETEMIR 100 UNITS/ML VIAL SQ SCH ×2 (09:00→21:06)
[2015-09-26] MEDS: GABAPENTIN 300 MG CAP G-TUBE SCH ×2 (09:58→21:07)
[2015-09-26] MEDS: LACTOBACILLUS ACIDOPHILUS TAB PO SCH ×3 (09:58→17:12)
[2015-09-26] MEDS: PARoxetine HCL 20 MG TAB G-TUBE SCH (09:58)
[2015-09-26] MEDS: ACETAMINOPHEN/HYDROcodone 325 MG/5 MG TAB PO PRN ×2 (09:59→17:03)
[2015-09-26] MEDS: MIDODRINE 5 MG TAB G-TUBE SCH ×2 (09:59→21:07)
[2015-09-26] MEDS: LANSOPRAZOLE SOLUTAB 30 MG TAB NG SCH (10:00)
[2015-09-26] MEDS: methylPREDNISolone SOD SUCC 40 MG/1 ML VIAL IV SCH ×2 (10:00→21:05)
[2015-09-26] MEDS ORDERED: MISCELLANEOUS PHARMACY INFORMATION XX PRN (18:45)
[2015-09-26] MEDS ORDERED: ASP: Documented ESBL, MDR A baumannii or P. aeruginosa XX PRN (18:45)
--- NOTE | 2015-09-26 18:45 | HHI.IDPN ---
Subjective Subjective Remarks ID COVERAGE FOR DR DELORIS Ribera was reconsulted by Dr Robbins for leukocytosis Pt is know to me Chart reviewed Mr. Foreman is a 54-year-old male with past medical history significant for Parkinson's disease, advanced dementia, history of ESBL UTI. He is still in ICU Afebrile He is on T piece and appears to be tachypneic 3 BMs, soft mushy He had high residuals TF restarted at 60 cc/hr Sputum with PSAE and Sten mal He has indwelling valdez (changed 2 days ago) and his urine clx is growing PSAE He has leukocytosis of 16 K yday, down to 14 K today Antibiotics Pip tazo Lines Line sites with no e/o infection Past Medical History reviewed Allergies: Coded Allergies: *MDRO Multi-Drug Resistant Organism (Verified Adverse Reaction, Unknown, ) ESBL E. coli (urine) - 02/19/2015; ESBL K. pneumoniae (sputum) - 06/18/15, (urine) - 08/03/15,(sputum) - 08/03/15, (sputum) - 09/20/15 MRSA PCR POSITIVE - 03/20/2015 MDR-Pseudomonas (sputum)- 08/18/15, 09/20/15 Objective . Vital Signs Date Time Temp Pulse Resp B/P Pulse Ox O2 Delivery O2 Flow Rate FiO2 09/26/15 16:00 98.6 73 22 92/52 98 09/26/15 14:00 77 09/26/15 12:00 98.8 73 22 138/70 98 09/26/15 12:00 77 09/26/15 12:00 40 09/26/15 10:00 77 09/26/15 08:00 70 09/26/15 08:00 98.0 73 22 128/70 98 09/26/15 08:00 40 09/26/15 07:38 96 T-piece 6.00 40 09/26/15 06:00 71 09/26/15 04:00 97.5 61 22 107/56 99 09/26/15 04:00 61 09/26/15 04:00 35 09/26/15 03:19 99 35 09/26/15 02:00 65 09/26/15 00:00 97.6 66 20 100/57 98 09/26/15 00:00 35 09/26/15 00:00 67 09/25/15 23:31 100 35 09/25/15 22:00 72 09/25/15 20:00 35 09/25/15 20:00 97.0 68 22 94/60 97 09/25/15 20:00 68 09/25/15 19:43 99 35 09/25/15 09/25/15 09/26/15 15:00 23:00 07:00 Intake Total 884 ml 498 ml 484 ml Output Total 500 ml 300 ml 500 ml Balance 384 ml 198 ml -16 ml Intake Oral 0 ml 0 ml IV Total 194 ml 112 ml 108 ml Tube Feeding 490 ml 386 ml 376 ml Other 200 ml Output Urine Total 500 ml 300 ml 500 ml # Bowel Movements 2 1 1 . Laboratory Tests Test 09/25/15 09/26/15 04:55 06:30 White Blood Count 16.1 TH/MM3 14.9 TH/MM3 Red Blood Count 3.52 MIL/MM3 3.63 MIL/MM3 Hemoglobin 9.0 GM/DL 9.4 GM/DL Hematocrit 29.4 % 30.2 % Mean Corpuscular Volume 83.4 FL 83.2 FL Mean Corpuscular Hemoglobin 25.6 PG 26.0 PG Mean Corpuscular Hemoglobin 30.7 % 31.2 % Concent Red Cell Distribution Width 15.2 % 15.4 % Platelet Count 165 TH/MM3 188 TH/MM3 Mean Platelet Volume 9.7 FL 10.1 FL Neutrophils (%) (Auto) 94.9 % 94.5 % Lymphocytes (%) (Auto) 3.1 % 3.7 % Monocytes (%) (Auto) 2.0 % 1.7 % Eosinophils (%) (Auto) 0.0 % 0.1 % Basophils (%) (Auto) 0.0 % 0.0 % Neutrophils # (Auto) 15.2 TH/MM3 14.1 TH/MM3 Lymphocytes # (Auto) 0.5 TH/MM3 0.6 TH/MM3 Monocytes # (Auto) 0.3 TH/MM3 0.2 TH/MM3 Eosinophils # (Auto) 0.0 TH/MM3 0.0 TH/MM3 Basophils # (Auto) 0.0 TH/MM3 0.0 TH/MM3 CBC Comment DIFF FINAL DIFF FINAL Differential Comment Laboratory Tests Test 09/25/15 09/26/15 04:55 06:30 Sodium Level 143 MEQ/L 141 MEQ/L Potassium Level 4.1 MEQ/L 4.2 MEQ/L Chloride Level 105 MEQ/L 101 MEQ/L Carbon Dioxide Level 34.5 MEQ/L 36.2 MEQ/L Anion Gap 4 MEQ/L 4 MEQ/L Blood Urea Nitrogen 23 MG/DL 19 MG/DL Creatinine 0.40 MG/DL 0.36 MG/DL Estimat Glomerular Filtration 226 ML/MIN 255 ML/MIN Rate Random Glucose 219 MG/DL 161 MG/DL Calcium Level 8.2 MG/DL 8.1 MG/DL Phosphorus Level 2.1 MG/DL 2.5 MG/DL Magnesium Level 2.2 MG/DL Imaging Last Impressions Chest X-Ray 09/25/15 0000 Signed Impressions: Service Date/Time: Friday, September 25, 2015 09:28 - CONCLUSION: No acute disease. Tai Taylor Jr., MD Abdomen X-Ray 09/21/15 0000 Signed Impressions: Service Date/Time: Monday, September 21, 2015 11:31 - CONCLUSION: Normal bowel gas pattern. Tai Taylor Jr., MD Tunnelled Chest Tube Removal 08/05/15 1100 Signed Impressions: Service Date/Time: Wednesday, August 05, 2015 11:00 - CONCLUSION: Uncomplicated chest tube removal. Blaine Jackson MD Chest Tube Change 07/31/15 0000 Signed Impressions: Service Date/Time: Friday, July 31, 2015 14:34 - CONCLUSION: Uncomplicated reposition of previously placed chest tube as above. Blaine Jackson MD Chest Tube Insertion 07/30/15 0000 Signed Impressions: Service Date/Time: July 14:50 - CONCLUSION: Uncomplicated chest tube placement as above. Blaine Jackson MD Catheter Change 07/27/15 0000 Signed Impressions: Service Date/Time: Monday, July 27, 2015 14:43 - CONCLUSION: Uncomplicated gastrostomy tube exchange as above. Blaine Jackson MD Chest CT 07/11/15 0000 Signed Impressions: Service Date/Time: Saturday, July 11, 2015 09:49 - CONCLUSION: Scattered patchy densities significantly improved from previous study. Tiny anterior right basilar pneumothorax. Right-sided chest tube in good position. Néstor Matamoros MD Head CT 06/18/15 179 Signed Impressions: Service Date/Time: June 19:31 - CONCLUSION: Diffuse atrophy unchanged. No acute intracranial findings. Kush Briscoe MD Abdomen/Pelvis CT 06/18/15 190 Signed Impressions: Service Date/Time: , June 18, 2015 19:36 - CONCLUSION: 1. Chronic nonspecific urinary bladder wall thickening. Bladder collapsed with Valdez catheter in place. 2. Chronic bilateral mid to lower lung zone groundglass opacity. 3. Nonobstructing left renal calculus. 4. Distended rectum. Kush Briscoe MD Physical Exam GENERAL: eyes closed, on the vent NAD SKIN: No generalized rash. Cool and dry. HEENT: [place]ke conjunctivae, no icterus, moist mucosa NECK: Trach site looks ok. CARDIOVASCULAR: No murmur appreciated. RESPIRATORY: Diffuse BL rhochi and decreased breath sounds appears tachypneic GASTROINTESTINAL: Abdomen soft, non-tender, mildly distended. No hepatosplenomegaly PEG tube site clean, no evidence of infection. MUSCULOSKELETAL: No cyanosis No pedal edema Contracted all 4 extremeties. NEUROLOGICAL: Opens eyes spontaneously, does not follow commands. Not moving extremeties Peripheral IV line sites with no evidence of infection. ; Valdez in place, urine looks clear Assessment & Plan Remarks leukocytosis Chronic respiratory failure was on trach Tracheobronchitis with purulent secretions - growing PSAE and ESBL Kleb in spuutum though CXR is negative Chronic encephalopathy with underlying diagnosis of advanced dementia as well as advanced Parkinson's disease. PSAE UTI - Prior history of ESBL UTI - valdez changed 2 days ago Status post trach Status post gastrostomy tube with no evidence of infection. Stage II sacral decubitus ulcer present on admission. Recommendations dc aguilasymelchor start meropenem fu clinically fu WBC repeat CXR ro C.diff dw Brittany Fierro RN, MD Sep 26, 2015 18:45
--- NOTE | 2015-09-26 18:59 | HHI.PR ---
Subjective Remarks Off vent support. on T Bar 35 %. Tolerates CPAP/PSV at night . Neuro status same.On tube feeds. Labs show Anemia. Objective Vital Signs Date Time Temp Pulse Resp B/P Pulse Ox O2 Delivery O2 Flow Rate FiO2 09/26/15 16:00 98.6 73 22 92/52 98 09/26/15 14:00 77 09/26/15 12:00 98.8 73 22 138/70 98 09/26/15 12:00 77 09/26/15 12:00 40 09/26/15 10:00 77 09/26/15 08:00 70 09/26/15 08:00 98.0 73 22 128/70 98 09/26/15 08:00 40 09/26/15 07:38 96 T-piece 6.00 40 09/26/15 06:00 71 09/26/15 04:00 97.5 61 22 107/56 99 09/26/15 04:00 61 09/26/15 04:00 35 09/26/15 03:19 99 35 09/26/15 02:00 65 09/26/15 00:00 97.6 66 20 100/57 98 09/26/15 00:00 35 09/26/15 00:00 67 09/25/15 23:31 100 35 09/25/15 22:00 72 09/25/15 20:00 35 09/25/15 20:00 97.0 68 22 94/60 97 09/25/15 20:00 68 09/25/15 19:43 99 35 I/O 09/25/15 09/25/15 09/25/15 09/26/15 09/26/15 09/26/15 07:00 15:00 23:00 07:00 15:00 23:00 Intake Total 480 ml 884 ml 498 ml 484 ml 630 ml Output Total 400 ml 500 ml 300 ml 500 ml 850 ml Balance 80 ml 384 ml 198 ml -16 ml -220 ml Intake Oral 0 ml 0 ml 0 ml IV Total 109 ml 194 ml 112 ml 108 ml 180 ml Tube Feeding 371 ml 490 ml 386 ml 376 ml 250 ml Other 200 ml 200 ml Output Urine Total 400 ml 500 ml 300 ml 500 ml 850 ml # Bowel Movements 1 2 1 1 3 Result Diagram: 09/26/1530 09/26/15 0630 Objective Remarks This is a thin white male who is unresponsive ,with a trach tube in place. HEENT: Pupils are equal and reactive to light. Throat secretions CHEST:Decreased breath sounds with few wheezes scattered.Occ Crackles at bases. CARDIOVASCULAR: S1 and S2 is normal. ABDOMEN: Soft, nondistended. BS +. He has a PEG tube in place. EXTREMITIES: No edema.muscle wasting. ulcer over sacrum. NEURO: Lethargic and has weak extremities .Reflexes not elicited. Assessment and Plan Assessment and Plan IMPRESSION 1. Respiratory failure, resolving 2. Sepsis, resolving. 3. UTI 4. Tracheobronchitis 5. Parkinson's disease 6. Dementia. 7. Severe Deconditioning. Plan : 1. Cont PSV, 06/17, FIO2 35 % at Nite. 2. Nebs qid , duoneb. 3. Cont Tube feeds at 60 CC 4. T Tube 40 % daytime. 5. Antibiotics per ID. 6. Cont Trach toilet and lavage. 8. Transfer to [facility]. Darren Kiser MD Sep 26, 2015 18:59
[2015-09-26] MEDS: MEROPENEM INJ 1,000 MG in SODIUM CHLORIDE 0.9% INJ 100 ML IV SCH (21:06)
[2015-09-26] MEDS: OLANZapine 5 MG TAB GT SCH (21:07)
[2015-09-26] MEDS: ENOXAPARIN SODIUM 40 MG/0.4 ML SYRINGE SQ SCH (21:09)
[2015-09-27] VITALS (16 sets, daily range): BP systolic 101–127; BP diastolic 51–69; PULSE 61–81; RESP 23–24; TEMP 97.8–98.4; O2SAT 97–100
[2015-09-27] MEDS: INSULIN NovoLIN REGULAR SUPPLEMENTAL SCALE SQ SCH ×4 (03:57→20:52)
[2015-09-27] MEDS: MEROPENEM INJ 1,000 MG in SODIUM CHLORIDE 0.9% INJ 100 ML IV SCH ×3 (03:58→20:56)
[2015-09-27] MEDS: clonazePAM 1 MG TAB PO SCH ×3 (03:58→20:51)
[2015-09-27] MEDS: CARBIDOPA/LEVODOPA 25 MG/100 MG TAB GT SCH ×3 (03:58→20:51)
[2015-09-27 05:10] LABS: AUTOMATED NEUTROPHIL # 13.1 TH/MM3 (1.8-7.7); BASOPHIL % 0.1 % (0.0-2.0); EOSINOPHIL # 0.1 TH/MM3 (0-0.4); EOSINOPHIL % 0.5 % (0.0-4.0); HEMATOCRIT 32.1 % (39.0-51.0); HEMO FLAGS DIFF FINAL; LYMPH % 3.1 % (9.0-44.0); LYMPHOCYTE # 0.4 TH/MM3 (1.0-4.8); MEAN CELL VOLUME 83.8 FL (80.0-100.0); MEAN CORPUSCULAR HEMOGLOBIN 26.5 PG (27.0-34.0); MEAN CORPUSCULAR HGB CONC 31.6 % (32.0-36.0); NEUT % 95.3 % (16.0-70.0); PLATELET COUNT 164 TH/MM3 (150-450); RED BLOOD COUNT 3.83 MIL/MM3 (4.50-5.90); RED CELL DISTRIBUTION WIDTH 15.8 % (11.6-17.2); WHITE BLOOD COUNT 13.8 TH/MM3 (4.0-11.0)
[2015-09-27 05:31] LABS: BICARBONATE 33.1 MEQ/L (21.0-32.0); POTASSIUM 4.5 MEQ/L (3.5-5.1)
--- NOTE | 2015-09-27 07:59 | RADRPT ---
EXAM DATE/TIME: 09/27/2015 05:19 [place] COMPARISON: CHEST SINGLE AP, September 25, 2015, 9:28. INDICATIONS : Respiratory failure. Evaluate for pneumonia per order. MEDICAL HISTORY : Hypertension. Gastroesophageal reflux disease. Diabetes mellitus type II . SURGICAL HISTORY : Tracheostomy. ENCOUNTER: Subsequent ACUITY: 3 months PAIN SCORE: Non-responsive. LOCATION: Bilateral chest FINDINGS: Tracheostomy tube is in good position. Heart is minimally enlarged. The lungs are hyperinflated but clear. Heart and pulmonary vascularity are normal. CONCLUSION: Hyperinflation; otherwise, negative. Milo Jackson MD FACR on September 27, 2015 at 6:56 Board Certified Radiologist. This report was verified electronically.
[2015-09-27] MEDS: CHLORHEXIDINE 0.12% (ORAL KIT) 15 ML CUP MT SCH ×2 (08:00→20:51)
[2015-09-27] MEDS: REMOVE OLD PATCH TD SCH (08:00)
[2015-09-27] MEDS: INSULIN DETEMIR 100 UNITS/ML VIAL SQ SCH ×2 (08:42→20:51)
[2015-09-27] MEDS: ACETAMINOPHEN/HYDROcodone 325 MG/5 MG TAB PO PRN (08:44)
[2015-09-27] MEDS: fentaNYL 50 MCG/HR PATCH TD SCH (08:49)
[2015-09-27] MEDS: COLLAGENASE OINT 30 GM TUBE TOP SCH (08:49)
[2015-09-27] MEDS: QUEtiapine FUMARATE 25 MG TAB G-TUBE SCH ×2 (08:50→20:51)
[2015-09-27] MEDS: LACTOBACILLUS ACIDOPHILUS TAB PO SCH ×3 (08:50→18:00)
[2015-09-27] MEDS: MIDODRINE 5 MG TAB G-TUBE SCH ×2 (08:50→20:51)
[2015-09-27] MEDS: LANSOPRAZOLE SOLUTAB 30 MG TAB NG SCH (08:50)
[2015-09-27] MEDS: GABAPENTIN 300 MG CAP G-TUBE SCH ×2 (08:51→20:51)
[2015-09-27] MEDS: PARoxetine HCL 20 MG TAB G-TUBE SCH (08:51)
[2015-09-27] MEDS: methylPREDNISolone SOD SUCC 40 MG/1 ML VIAL IV SCH (09:00)
[2015-09-27] MEDS: ARTIFICIAL TEARS OPTH SOLN 15 ML BTL EACH EYE SCH ×3 (09:00→18:00)
[2015-09-27] MEDS: SODIUM CHLORIDE 0.9% FLUSH 5 ML FLUSH IVF SCH ×2 (09:00→20:56)
--- NOTE | 2015-09-27 12:57 | HHI.PR ---
Subjective Remarks The patient appeared comfortable. He was awake but not talking or following commands. No concerns from nursing. Objective Vitals Vital Signs Date Time Temp Pulse Resp B/P Pulse Ox O2 Delivery O2 Flow Rate FiO2 09/27/15 10:00 79 09/27/15 08:00 98.0 72 24 127/67 97 09/27/15 08:00 79 09/27/15 07:51 99 T-piece 6.00 40 09/27/15 06:00 78 09/27/15 04:58 100 35 09/27/15 04:00 35 09/27/15 04:00 65 09/27/15 04:00 97.8 65 24 114/59 97 09/27/15 02:00 61 09/27/15 01:14 98 35 09/27/15 00:00 97.8 69 23 101/51 98 09/27/15 00:00 35 09/27/15 00:00 69 09/26/15 22:05 97 35 09/26/15 22:00 74 09/26/15 20:00 63 09/26/15 20:00 98.6 63 27 106/58 99 09/26/15 20:00 35 09/26/15 19:29 97 35 09/26/15 16:00 98.6 73 22 92/52 98 09/26/15 14:00 77 I/O 09/26/15 09/26/15 09/26/15 09/27/15 09/27/15 09/27/15 07:00 15:00 23:00 07:00 15:00 23:00 Intake Total 484 ml 630 ml 655 ml 506 ml Output Total 500 ml 850 ml 250 ml 250 ml Balance -16 ml -220 ml 405 ml 256 ml Intake Oral 0 ml IV Total 108 ml 180 ml 250 ml 164 ml Tube Feeding 376 ml 250 ml 405 ml 342 ml Other 200 ml Output Urine Total 500 ml 850 ml 250 ml 250 ml # Bowel Movements 1 3 1 1 Result Diagram: 09/27/15 03509/27/15 035 Imaging Last Impressions Chest X-Ray 09/25/15 0000 Signed Impressions: Service Date/Time: Friday, September 25, 2015 09:28 - CONCLUSION: No acute disease. Tai Taylor Jr., MD Abdomen X-Ray 09/21/15 0000 Signed Impressions: Service Date/Time: Monday, September 21, 2015 11:31 - CONCLUSION: Normal bowel gas pattern. Tai Taylor Jr., MD Tunnelled Chest Tube Removal 08/05/15 1100 Signed Impressions: Service Date/Time: Wednesday, August 05, 2015 11:00 - CONCLUSION: Uncomplicated chest tube removal. Blaine Jackson MD Chest Tube Change 07/31/15 0000 Signed Impressions: Service Date/Time: Friday, July 31, 2015 14:34 - CONCLUSION: Uncomplicated reposition of previously placed chest tube as above. Blaine Jackson MD Chest Tube Insertion 07/30/15 0000 Signed Impressions: Service Date/Time: July 14:50 - CONCLUSION: Uncomplicated chest tube placement as above. Blaine Jackson MD Catheter Change 07/27/15 0000 Signed Impressions: Service Date/Time: Monday, July 27, 2015 14:43 - CONCLUSION: Uncomplicated gastrostomy tube exchange as above. Blaine Jackson MD Chest CT 07/11/15 0000 Signed Impressions: Service Date/Time: Saturday, July 11, 2015 09:49 - CONCLUSION: Scattered patchy densities significantly improved from previous study. Tiny anterior right basilar pneumothorax. Right-sided chest tube in good position. Néstor Matamoros MD Head CT 06/18/151902 Signed Impressions: Service Date/Time: June 19:31 - CONCLUSION: Diffuse atrophy unchanged. No acute intracranial findings. Kush Briscoe MD Abdomen/Pelvis CT 06/18/151902 Signed Impressions: Service Date/Time: June 19:36 - CONCLUSION: 1. Chronic nonspecific urinary bladder wall thickening. Bladder collapsed with Putnam catheter in place. 2. Chronic bilateral mid to lower lung zone groundglass opacity. 3. Nonobstructing left renal calculus. 4. Distended rectum. Kush Briscoe MD Objective Remarks GENERAL: Well-nourished, well-developed patient. SKIN: Warm and dry. HEAD: Normocephalic. EYES: No scleral icterus. No injection or drainage. NECK: Trach in place. CARDIOVASCULAR: Regular rate and rhythm without murmurs, gallops, or rubs. RESPIRATORY: + secretions. Moderate air entry. Scattered rhonchi. GASTROINTESTINAL: Abdomen soft, non-tender, nondistended. MUSCULOSKELETAL: No edema. Contractures and deformities of fingers. Stage III coccyx/sacral decubitus ulcer. NEURO: Unresponsive to voice, not following commands. Procedures 07/26- PEG replacement 07/29- right pigtail catheter placement for new pneumothorax 07/29 Medications and IVs Current Medications Medications (Trade) Dose Ordered Sig/Jassi Route Start Time Stop Time Status Last Admin (NS Flush) 2 ml UNSCH PRN IVF 06/18/15 21:30 08/18/15 05:13 (NS Flush) 2 ml BID IVF 06/19/15 09:00 09/27/15 09:00 (Tylenol 650 Mg/ 20 ml Liq) 650 mg Q6H PRN TUBE 06/18/15 21:30 09/19/15 23:40 (Tears Naturale Opth Soln) 1 drop TID EACH EYE 06/19/15 09:00 09/27/15 09:00 (Zofran Inj) 4 mg Q6H PRN IV 06/18/15 21:30 08/27/15 01:12 (Sinemet 25-100 Mg) 1 tab Q8HR GT 06/19/15 06:00 09/27/15 03:58 (Neurontin) 300 mg BID G-TUBE 06/19/15 09:00 09/27/15 08:51 (Lactinex) 1 tab TID PO 06/19/15 09:00 09/27/15 08:50 (Paxil) 20 mg DAILY G-TUBE 06/19/15 09:00 09/27/15 08:51 (Pill Splitter) 1 ea UNSCH PRN OTHER 06/19/15 03:30 06/28/15 09:35 (Prevacid Odt) 30 mg DAILY NG 07/08/15 09:00 09/27/15 08:50 Miscellaneous Information 1 Q3D TD 07/11/15 08:00 09/24/15 08:00 (Duragesic 50 Mcg Patch.72 Hr) 1 patch Q3D TD 07/08/15 09:00 09/27/15 08:49 (KlonoPIN) 2 mg Q8HR PO 07/09/15 14:00 09/27/15 03:58 (Proamatine) 5 mg BID G-TUBE 07/12/15 09:00 09/27/15 08:50 (SEROquel) 50 mg BID G-TUBE 07/18/15 09:00 09/27/15 08:50 (Morphine Inj) 2 mg Q3H PRN IV PUSH 07/28/15 00:45 08/18/15 05:13 (Peridex 0.12% Liq) 15 ml BID@08,20 MT 07/29/15 20:00 09/27/15 08:00 (Ativan Inj) 0.5 mg Q6H PRN IVP 08/04/15 13:00 09/13/15 07:02 (Lovenox Inj) 40 mg Q24H SQ 08/09/15 22:00 09/26/15 21:09 (Justice 5-325 Mg) 1 tab Q6H PRN PO 08/15/15 15:45 09/27/15 08:44 (Sublimaze Inj) 50 mcg Q2H PRN IV PUSH 08/15/15 15:45 08/17/15 04:31 (ZyPREXA) 5 mg HS GT 08/15/15 21:00 09/26/15 21:07 (Santyl Oint) 1 applic DAILY TOP 08/21/15 09:00 09/27/15 08:49 Hyoscyamine Sulfate 0.125 mg 0.125 mg Q4H PRN PO 09/06/15 11:00 09/23/15 12:38 Potassium Chloride 100 ml @ 50 mls/hr Q2H PRN IV 09/21/15 10:45 (KCl 20 Meq Premix Inj) 100 ml @ 50 mls/hr Q2H PRN IV 09/21/15 10:45 Potassium Chloride 40 meq 40 meq UNSCH PRN PO/TUBE 09/21/15 10:45 Potassium Chloride 100 ml @ 25 mls/hr UNSCH PRN IV 09/21/15 10:45 Potassium Chloride 100 ml @ 50 mls/hr Q2H PRN IV 09/21/15 10:45 (Magnesium Sulfate Inj/NS Inj) 100 ml @ 50 mls/hr UNSCH PRN IV 09/21/15 10:45 Magnesium Oxide 800 mg 800 mg UNSCH PRN PO 09/21/15 10:45 (Magnesium Sulfate Inj/NS Inj) 100 ml @ 50 mls/hr UNSCH PRN IV 09/21/15 10:45 Potassium Phosphate 2000 mg 2,000 mg Q4H PRN PO 09/21/15 10:45 (Sodium Phosphate Inj/NS 250 ml Inj) 250 ml @ 42 mls/hr UNSCH PRN IV 09/21/15 10:45 (KCl 40 Meq/30 ml Liq) 40 meq UNSCH PRN PO/TUBE 09/21/15 10:45 Potassium Phosphate 2000 mg 2,000 mg UNSCH PRN PO/TUBE 09/21/15 10:45 (Potassium Phosphate Inj/NS 250 ml Inj) 260 ml @ 42 mls/hr UNSCH PRN IV 09/21/15 10:45 (SoluMEDROL INJ) 30 mg Q12HR IV 09/24/15 09:00 09/27/15 09:00 (D50w (Vial) Inj) 25 ml UNSCH PRN IV PUSH 09/24/15 08:30 (Glucagon Inj) 1 mg UNSCH PRN OTHER 09/24/15 08:30 (NovoLIN R SUPPLEMENTAL SCALE) 1 Q6H SQ 09/24/15 09:00 09/27/15 03:57 Insulin Detemir 7 units 7 units Q12HR SQ 09/25/15 10:00 09/27/15 08:42 (Merrem Inj/NS Inj) 100 ml @ 200 mls/hr Q8H IV 09/26/15 21:00 09/27/15 03:58 Date of Insertion: Jul 30, 2015 A/P Problem List: (1) Sepsis due to urinary tract infection Status: Resolved (2) Acute respiratory failure Status: Resolved (3) Chronic respiratory failure Status: Chronic (4) Parkinson disease Status: Chronic (5) UTI (urinary tract infection) Status: Resolved (6) Encephalopathy Status: Resolved Assessment and Plan Parkinson's disease/ 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 CT head 06/18/15: - diffuse atrophy unchanged. No acute intracranial findings Continue Sinemet 25/100 q8 via PEG, Seroquel 50 mg twice a day, olanzapine 5 mg a night, Klonopin 2 mg every 8 hours, Paxil 20 daily Continue Lortab when necessary pain and fentanyl patch 50 g every 3 days for pain management. Fentanyl bolus prn breakthrough pain or if needed for turning/ nursing care/etc. - PT/OT. Acute on chronic respiratory failure Chronic trach #8 Shiley distal XLT. Appreciate pulmonology consult. S/p treatment for PNA. Right pneumothorax status post pigtail catheter 2 (resolved) . Continues to have secretions. - On Tpiece at 35% 15 hours during day and PSV using Bipap 15/5 at 35% at night from 10 PM to 7 AM per pulmonology. - Pulm toilet, trach care. - Exchanged to 8 Distal XLT on 08/15 to facilitate suctioning, trach care. - Bronchodilators ( DuoNeb) every 6 hours. - follow up with pulmonology. - On Solu-Medrol 30 mg BID. Continue to wean. History of orthostasis On midodrine 2.5 mg twice a day at home. - Continue midodrine 5 mg twice a day. Malnutrition Status post PEG - Tolerating Jevity 1.5 at 60 cc an hour per nutrition recommendations. KUB: normal bowel gas pattern. - Currently Prevacid 30 mg per PEG tube daily for GERD. - Currently not on bowel regimen secondary to diarrhea. Hypernatremia Stable. - Increase free water to 300 ml every 8 hours. Sepsis/ PNA/ UTI ID was consulted. ESBL klebsiella and cele tropicalis in urine cx. ESBL positive Klebsiella/Pseudomonas pneumonia. Stenotrophomonas in sputum 08/17. MRSA colonization. Watching off abx per ID: Diflucan 08/17-08/26 . Levaquin --08/26 for Stenotrophomonas. Completed course of meropenem for 08/11-08/20 for Klebsiella ESBL/pseudomonas pneumonia. S/p tobramycin as well. CXR 09/05 was unremarkable. 09/21 Urine cx: Pseudomonas ? colonized. 09/19 Sputum cx: Pseudomonas, Kleb pneumonia ESBL pos. - On Lactinex tid. - switch Zosyn to meropenem per ID. Bilateral lower extremity contractures/ Stage III sacral decubitus present on admission Currently has recommended bed. - Wound care evaluate and treat. Currently on Santyl daily with wet-to-dry changes. - Continue physical therapy, GI - Prevacid DVT - SCDs/ Lovenox. Discharge Planning Awaiting clinical improvement. Salazar Santa DO Sep 27, 2015 12:57
--- NOTE | 2015-09-27 13:36 | HHI.IDPN ---
Subjective Subjective Remarks ID [employer] FOR [employer] PUENTES On Tpiece afebrile less secretions less diarrhea Antibiotics meropenem Lines Line sites with no e/o infection Past Medical History reviewed Allergies: Coded Allergies: *MDRO Multi-Drug Resistant Organism (Verified Adverse Reaction, Unknown, ) ESBL E. coli (urine) - 02/19/2015; ESBL K. pneumoniae (sputum) - 06/18/15, (urine) - 08/03/15,(sputum) - 08/03/15, (sputum) - 09/20/15 MRSA PCR POSITIVE - 03/20/2015 MDR-Pseudomonas (sputum)- 08/18/15, 09/20/15 Objective . Vital Signs Date Time Temp Pulse Resp B/P Pulse Ox O2 Delivery O2 Flow Rate FiO2 09/27/15 10:00 79 09/27/15 08:00 98.0 72 24 127/67 97 09/27/15 08:00 79 09/27/15 07:51 99 T-piece 6.00 40 09/27/15 06:00 78 09/27/15 04:58 100 35 09/27/15 04:00 35 09/27/15 04:00 65 09/27/15 04:00 97.8 65 24 114/59 97 09/27/15 02:00 61 09/27/15 01:14 98 35 09/27/15 00:00 97.8 69 23 101/51 98 09/27/15 00:00 35 09/27/15 00:00 69 09/26/15 22:05 97 35 09/26/15 22:00 74 09/26/15 20:00 63 09/26/15 20:00 98.6 63 27 106/58 99 09/26/15 20:00 35 09/26/15 19:29 97 35 09/26/15 16:00 98.6 73 22 92/52 98 09/26/15 14:00 77 09/26/15 09/26/15 09/27/15 15:00 23:00 07:00 Intake Total 630 ml 655 ml 506 ml Output Total 850 ml 250 ml 250 ml Balance -220 ml 405 ml 256 ml IV Total 180 ml 250 ml 164 ml Tube Feeding 250 ml 405 ml 342 ml Other 200 ml Output Urine Total 850 ml 250 ml 250 ml # Bowel Movements 3 1 1 . Laboratory Tests Test 09/26/15 09/27/15 06:30 03:51 White Blood Count 14.9 TH/MM3 13.8 TH/MM3 Red Blood Count 3.63 MIL/MM3 3.83 MIL/MM3 Hemoglobin 9.4 GM/DL 10.1 GM/DL Hematocrit 30.2 % 32.1 % Mean Corpuscular Volume 83.2 FL 83.8 FL Mean Corpuscular Hemoglobin 26.0 PG 26.5 PG Mean Corpuscular Hemoglobin 31.2 % 31.6 % Concent Red Cell Distribution Width 15.4 % 15.8 % Platelet Count 188 TH/MM3 164 TH/MM3 Mean Platelet Volume 10.1 FL 10.0 FL Neutrophils (%) (Auto) 94.5 % 95.3 % Lymphocytes (%) (Auto) 3.7 % 3.1 % Monocytes (%) (Auto) 1.7 % 1.0 % Eosinophils (%) (Auto) 0.1 % 0.5 % Basophils (%) (Auto) 0.0 % 0.1 % Neutrophils # (Auto) 14.1 TH/MM3 13.1 TH/MM3 Lymphocytes # (Auto) 0.6 TH/MM3 0.4 TH/MM3 Monocytes # (Auto) 0.2 TH/MM3 0.1 TH/MM3 Eosinophils # (Auto) 0.0 TH/MM3 0.1 TH/MM3 Basophils # (Auto) 0.0 TH/MM3 0.0 TH/MM3 CBC Comment DIFF FINAL DIFF FINAL Differential Comment Laboratory Tests Test 09/26/15 09/27/15 06:30 03:51 Sodium Level 141 MEQ/L 138 MEQ/L Potassium Level 4.2 MEQ/L 4.5 MEQ/L Chloride Level 101 MEQ/L 101 MEQ/L Carbon Dioxide Level 36.2 MEQ/L 33.1 MEQ/L Anion Gap 4 MEQ/L 4 MEQ/L Blood Urea Nitrogen 19 MG/DL 20 MG/DL Creatinine 0.36 MG/DL 0.40 MG/DL Estimat Glomerular Filtration 255 ML/MIN 226 ML/MIN Rate Random Glucose 161 MG/DL 255 MG/DL Calcium Level 8.1 MG/DL 8.1 MG/DL Phosphorus Level 2.5 MG/DL Magnesium Level 2.2 MG/DL Imaging Last Impressions Chest X-Ray 09/25/15 0000 Signed Impressions: Service Date/Time: Friday, September 25, 2015 09:28 - CONCLUSION: No acute disease. Tai Taylor Jr., MD Abdomen X-Ray 09/21/15 0000 Signed Impressions: Service Date/Time: Monday, September 21, 2015 11:31 - CONCLUSION: Normal bowel gas pattern. Tai Tayolr Jr., MD Tunnelled Chest Tube Removal 08/05/15 1100 Signed Impressions: Service Date/Time: Wednesday, August 05, 2015 11:00 - CONCLUSION: Uncomplicated chest tube removal. Blaine Jackson MD Chest Tube Change 07/31/15 0000 Signed Impressions: Service Date/Time: Friday, July 31, 2015 14:34 - CONCLUSION: Uncomplicated reposition of previously placed chest tube as above. Blaine Jackson MD Chest Tube Insertion 07/30/15 0000 Signed Impressions: Service Date/Time: July 14:50 - CONCLUSION: Uncomplicated chest tube placement as above. Blaine Jackson MD Catheter Change 07/27/15 0000 Signed Impressions: Service Date/Time: Monday, July 27, 2015 14:43 - CONCLUSION: Uncomplicated gastrostomy tube exchange as above. Blaine Jackson MD Chest CT 07/11/15 0000 Signed Impressions: Service Date/Time: Saturday, July 11, 2015 09:49 - CONCLUSION: Scattered patchy densities significantly improved from previous study. Tiny anterior right basilar pneumothorax. Right-sided chest tube in good position. Néstor Matamoros MD Head CT 06/18/151902 Signed Impressions: Service Date/Time: June 19:31 - CONCLUSION: Diffuse atrophy unchanged. No acute intracranial findings. Kush Briscoe MD Abdomen/Pelvis CT 06/18/151902 Signed Impressions: Service Date/Time: June 19:36 - CONCLUSION: 1. Chronic nonspecific urinary bladder wall thickening. Bladder collapsed with Valdez catheter in place. 2. Chronic bilateral mid to lower lung zone groundglass opacity. 3. Nonobstructing left renal calculus. 4. Distended rectum. Kush Briscoe MD Physical Exam GENERAL: eyes closed, on the vent NAD SKIN: No generalized rash. Cool and dry. HEENT: [place] conjunctivae, no icterus, moist mucosa NECK: Trach site looks ok. CARDIOVASCULAR: No murmur appreciated. RESPIRATORY: few scattered rhochi and decreased breath sounds GASTROINTESTINAL: Abdomen soft, non-tender, mildly distended. No hepatosplenomegaly PEG tube site clean, no evidence of infection. MUSCULOSKELETAL: No cyanosis No pedal edema Contracted all 4 extremeties. NEUROLOGICAL: Opens eyes spontaneously, does not follow commands. Not moving extremeties Peripheral IV line sites with no evidence of infection. ; Valdez in place, urine looks clear Assessment & Plan Remarks leukocytosis Chronic respiratory failure was on trach Tracheobronchitis with purulent secretions - growing PSAE and ESBL Kleb in spuutum though CXR is negative Chronic encephalopathy with underlying diagnosis of advanced dementia as well as advanced Parkinson's disease. PSAE UTI - Prior history of ESBL UTI - valdez changed 2 days ago Status post trach Status post gastrostomy tube with no evidence of infection. Stage II sacral decubitus ulcer present on admission. Recommendations cont meropenem for 1 wk fu clinically fu WBC repeat CXR ro C.diff dw Brittany Hughes MD Sep 27, 2015 13:36
--- NOTE | 2015-09-27 17:04 | HHI.PR ---
Subjective Remarks Off vent support. on T Bar 35 %. On CPAP/PSV at night . Neuro status same.On tube feeds. CXR shows no active infiltrate Objective Vital Signs Date Time Temp Pulse Resp B/P Pulse Ox O2 Delivery O2 Flow Rate FiO2 09/27/15 14:00 79 09/27/15 12:00 98.4 78 24 126/69 97 09/27/15 12:00 79 09/27/15 10:00 79 09/27/15 08:00 98.0 72 24 127/67 97 09/27/15 08:00 79 09/27/15 07:51 99 T-piece 6.00 40 09/27/15 06:00 78 09/27/15 04:58 100 35 09/27/15 04:00 35 09/27/15 04:00 65 09/27/15 04:00 97.8 65 24 114/59 97 09/27/15 02:00 61 09/27/15 01:14 98 35 09/27/15 00:00 97.8 69 23 101/51 98 09/27/15 00:00 35 09/27/15 00:00 69 09/26/15 22:05 97 35 09/26/15 22:00 74 09/26/15 20:00 63 09/26/15 20:00 98.6 63 27 106/58 99 09/26/15 20:00 35 09/26/15 19:29 97 35 I/O 09/26/15 09/26/15 09/26/15 09/27/15 09/27/15 09/27/15 07:00 15:00 23:00 07:00 15:00 23:00 Intake Total 484 ml 630 ml 655 ml 506 ml 1123 ml Output Total 500 ml 850 ml 250 ml 250 ml 550 ml Balance -16 ml -220 ml 405 ml 256 ml 573 ml Intake Oral 0 ml IV Total 108 ml 180 ml 250 ml 164 ml 198 ml Tube Feeding 376 ml 250 ml 405 ml 342 ml 725 ml Other 200 ml 200 ml Output Urine Total 500 ml 850 ml 250 ml 250 ml 550 ml # Bowel Movements 1 3 1 1 2 Result Diagram: 09/27/15 0351 09/27/15 0351 Objective Remarks This is a thin white male who is unresponsive ,with a trach tube in place. HEENT: Pupils are equal and reactive to light. Few Throat secretions CHEST:Decreased breath sounds with few wheezes scattered. CARDIOVASCULAR: S1 and S2 is normal. ABDOMEN: Soft, nondistended. BS +. He has a PEG tube in place. EXTREMITIES: No edema.muscle wasting. ulcer over sacrum. NEURO: Lethargic , and has weak extremities .Reflexes not elicited. Assessment and Plan Assessment and Plan IMPRESSION 1. Respiratory failure, resolving 2. Sepsis, resolving. 3. UTI 4. Tracheobronchitis 5. Parkinson's disease 6. Dementia. 7. Severe Deconditioning. Plan : 1. Cont PSV, 06/17, FIO2 35 % at Nite. 2. Nebs qid , duoneb. 3. Cont Tube feeds at 60 CC 4. T Tube 40 % daytime. 5. Antibiotics per ID. 6. Cont Trach toilet and lavage. 8. [facility] to [facility]. Darren Kiser MD Sep 27, 2015 17:04
[2015-09-27] MEDS: OLANZapine 5 MG TAB GT SCH (20:51)
[2015-09-27] MEDS: ENOXAPARIN SODIUM 40 MG/0.4 ML SYRINGE SQ SCH (20:51)
[2015-09-28] VITALS (19 sets, daily range): BP systolic 99–118; BP diastolic 55–72; PULSE 66–101; RESP 19–38; TEMP 97.2–100; O2SAT 95–100
[2015-09-28] MEDS: INSULIN NovoLIN REGULAR SUPPLEMENTAL SCALE SQ SCH ×4 (03:00→23:01)
[2015-09-28] MEDS: clonazePAM 1 MG TAB PO SCH ×3 (04:41→22:43)
[2015-09-28] MEDS: CARBIDOPA/LEVODOPA 25 MG/100 MG TAB GT SCH ×3 (04:41→22:43)
[2015-09-28] MEDS: MEROPENEM INJ 1,000 MG in SODIUM CHLORIDE 0.9% INJ 100 ML IV SCH ×3 (04:42→22:45)
[2015-09-28] MEDS: SODIUM CHLORIDE 0.9% FLUSH 5 ML FLUSH IVF SCH ×2 (09:00→22:44)
[2015-09-28] MEDS: COLLAGENASE OINT 30 GM TUBE TOP SCH (09:00)
[2015-09-28] MEDS: ARTIFICIAL TEARS OPTH SOLN 15 ML BTL EACH EYE SCH ×3 (09:00→18:00)
[2015-09-28] MEDS: QUEtiapine FUMARATE 25 MG TAB G-TUBE SCH ×2 (09:47→22:43)
[2015-09-28] MEDS: LACTOBACILLUS ACIDOPHILUS TAB PO SCH ×3 (09:47→18:00)
[2015-09-28] MEDS: MIDODRINE 5 MG TAB G-TUBE SCH ×2 (09:47→22:43)
[2015-09-28] MEDS: predniSONE 20 MG TAB PO SCH (09:47)
[2015-09-28] MEDS: CHLORHEXIDINE 0.12% (ORAL KIT) 15 ML CUP MT SCH ×2 (09:47→22:42)
[2015-09-28] MEDS: INSULIN DETEMIR 100 UNITS/ML VIAL SQ SCH ×2 (09:48→22:42)
[2015-09-28] MEDS: LANSOPRAZOLE SOLUTAB 30 MG TAB NG SCH (09:48)
[2015-09-28] MEDS: GABAPENTIN 300 MG CAP G-TUBE SCH ×2 (09:48→22:43)
[2015-09-28] MEDS: PARoxetine HCL 20 MG TAB G-TUBE SCH (09:48)
--- NOTE | 2015-09-28 12:37 | HHI.IDPN ---
Subjective Subjective Remarks Chart reviewed. Overnight events reviewed with RN. Has thick yellow secretions moderate in amount. CXR normal. On Tpiece afebrile less secretions less diarrhea Antibiotics meropenem Lines Line sites with no e/o infection Past Medical History reviewed Allergies: Coded Allergies: *MDRO Multi-Drug Resistant Organism (Verified Adverse Reaction, Unknown, ) ESBL E. coli (urine) - 02/19/2015; ESBL K. pneumoniae (sputum) - 06/18/15, (urine) - 08/03/15,(sputum) - 08/03/15, (sputum) - 09/20/15 MRSA PCR POSITIVE - 03/20/2015 MDR-Pseudomonas (sputum)- 08/18/15, 09/20/15 Objective . Vital Signs Date Time Temp Pulse Resp B/P Pulse Ox O2 Delivery O2 Flow Rate FiO2 09/28/15 12:00 98 35 09/28/15 09:52 95 35 09/28/15 08:00 98 T-piece 10.00 40 09/28/15 07:50 97 35 09/28/15 06:00 91 09/28/15 04:07 96 35 09/28/15 04:00 98.0 86 29 113/60 96 09/28/15 04:00 35 09/28/15 04:00 86 09/28/15 02:00 81 09/28/15 01:14 96 35 09/28/15 00:00 84 09/28/15 00:00 98.2 84 29 114/60 95 09/28/15 00:00 35 09/27/15 22:00 81 09/27/15 20:00 35 09/27/15 20:00 71 09/27/15 20:00 98.3 71 24 119/66 99 09/27/15 19:21 100 35 09/27/15 18:00 79 09/27/15 16:00 98.3 72 24 110/58 97 09/27/15 16:00 79 09/27/15 14:00 79 09/27/15 09/27/15 09/28/15 15:00 23:00 07:00 Intake Total 1123 ml 738 ml 482 ml Output Total 550 ml 300 ml 200 ml Balance 573 ml 438 ml 282 ml IV Total 198 ml 258 ml 62 ml Tube Feeding 725 ml 480 ml 420 ml Other 200 ml Output Urine Total 550 ml 300 ml 200 ml # Bowel Movements 2 1 2 . Laboratory Tests Test 09/27/15 03:51 White Blood Count 13.8 TH/MM3 Red Blood Count 3.83 MIL/MM3 Hemoglobin 10.1 GM/DL Hematocrit 32.1 % Mean Corpuscular Volume 83.8 FL Mean Corpuscular Hemoglobin 26.5 PG Mean Corpuscular Hemoglobin 31.6 % Concent Red Cell Distribution Width 15.8 % Platelet Count 164 TH/MM3 Mean Platelet Volume 10.0 FL Neutrophils (%) (Auto) 95.3 % Lymphocytes (%) (Auto) 3.1 % Monocytes (%) (Auto) 1.0 % Eosinophils (%) (Auto) 0.5 % Basophils (%) (Auto) 0.1 % Neutrophils # (Auto) 13.1 TH/MM3 Lymphocytes # (Auto) 0.4 TH/MM3 Monocytes # (Auto) 0.1 TH/MM3 Eosinophils # (Auto) 0.1 TH/MM3 Basophils # (Auto) 0.0 TH/MM3 CBC Comment DIFF FINAL Differential Comment Laboratory Tests Test 09/27/15 03:51 Sodium Level 138 MEQ/L Potassium Level 4.5 MEQ/L Chloride Level 101 MEQ/L Carbon Dioxide Level 33.1 MEQ/L Anion Gap 4 MEQ/L Blood Urea Nitrogen 20 MG/DL Creatinine 0.40 MG/DL Estimat Glomerular Filtration 226 ML/MIN Rate Random Glucose 255 MG/DL Calcium Level 8.1 MG/DL Imaging Last Impressions Chest X-Ray 09/25/15 0000 Signed Impressions: Service Date/Time: Friday, September 25, 2015 09:28 - CONCLUSION: No acute disease. Tai Taylor Jr., MD Abdomen X-Ray 09/21/15 0000 Signed Impressions: Service Date/Time: Monday, September 21, 2015 11:31 - CONCLUSION: Normal bowel gas pattern. Tai Taylor Jr., MD Tunnelled Chest Tube Removal 08/05/15 1100 Signed Impressions: Service Date/Time: Wednesday, August 05, 2015 11:00 - CONCLUSION: Uncomplicated chest tube removal. Blaine Jackson MD Chest Tube Change 07/31/15 0000 Signed Impressions: Service Date/Time: Friday, July 31, 2015 14:34 - CONCLUSION: Uncomplicated reposition of previously placed chest tube as above. Blaine Jackson MD Chest Tube Insertion 07/30/15 0000 Signed Impressions: Service Date/Time: July 14:50 - CONCLUSION: Uncomplicated chest tube placement as above. Blaine Jackson MD Catheter Change 07/27/15 0000 Signed Impressions: Service Date/Time: Monday, July 27, 2015 14:43 - CONCLUSION: Uncomplicated gastrostomy tube exchange as above. Blaine Jackson MD Chest CT 07/11/15 0000 Signed Impressions: Service Date/Time: Saturday, July 11, 2015 09:49 - CONCLUSION: Scattered patchy densities significantly improved from previous study. Tiny anterior right basilar pneumothorax. Right-sided chest tube in good position. Néstor Matamoros MD Head CT 06/18/151902 Signed Impressions: Service Date/Time: June 19:31 - CONCLUSION: Diffuse atrophy unchanged. No acute intracranial findings. Kush Briscoe MD Abdomen/Pelvis CT 06/18/151902 Signed Impressions: Service Date/Time: June 19:36 - CONCLUSION: 1. Chronic nonspecific urinary bladder wall thickening. Bladder collapsed with Valdez catheter in place. 2. Chronic bilateral mid to lower lung zone groundglass opacity. 3. Nonobstructing left renal calculus. 4. Distended rectum. Kush Briscoe MD Physical Exam GENERAL: eyes closed, on the vent NAD SKIN: No generalized rash. Cool and dry. HEENT: [place] conjunctivae, no icterus, moist mucosa NECK: Trach site looks ok. CARDIOVASCULAR: No murmur appreciated. RESPIRATORY: few scattered rhochi and decreased breath sounds GASTROINTESTINAL: Abdomen soft, non-tender, mildly distended. No hepatosplenomegaly PEG tube site clean, no evidence of infection. MUSCULOSKELETAL: No cyanosis No pedal edema Contracted all 4 extremeties. NEUROLOGICAL: Opens eyes spontaneously, does not follow commands. Not moving extremeties Peripheral IV line sites with no evidence of infection. ; Valdez in place, urine looks clear Assessment & Plan Remarks PSAE ESBL cath associated UTI. leukocytosis Chronic respiratory failure was on trach Tracheobronchitis with purulent secretions - growing PSAE and ESBL Kleb in spuutum though CXR is negative Chronic encephalopathy with underlying diagnosis of advanced dementia as well as advanced Parkinson's disease. PSAE UTI - Prior history of ESBL UTI - valdez changed 2 days ago Status post trach Status post gastrostomy tube with no evidence of infection. Stage II sacral decubitus ulcer present on admission. Recommendations cont meropenem for 1 wk (stop date entered) for ESBL UTI. No need to treat tracheobronchitis per IDSA guidelines. dw RN Will sign off please call back if any change in clinical condition or questions. Trina Moss MD Sep 28, 2015 12:37 Trina Moss MD Sep 28, 2015 12:37
--- NOTE | 2015-09-28 13:08 | HHI.PR ---
Subjective Remarks The patient was not responding to external stimuli. Nursing stated that the patient had to be suctioned for up to 20 minutes today and would not be suitable for transfer to the floor at this time. Objective Vitals Vital Signs Date Time Temp Pulse Resp B/P Pulse Ox O2 Delivery O2 Flow Rate FiO2 09/28/15 12:00 98 35 09/28/15 09:52 95 35 09/28/15 08:00 98 T-piece 10.00 40 09/28/15 07:50 97 35 09/28/15 06:00 91 09/28/15 04:07 96 35 09/28/15 04:00 98.0 86 29 113/60 96 09/28/15 04:00 35 09/28/15 04:00 86 09/28/15 02:00 81 09/28/15 01:14 96 35 09/28/15 00:00 84 09/28/15 00:00 98.2 84 29 114/60 95 09/28/15 00:00 35 09/27/15 22:00 81 09/27/15 20:00 35 09/27/15 20:00 71 09/27/15 20:00 98.3 71 24 119/66 99 09/27/15 19:21 100 35 09/27/15 18:00 79 09/27/15 16:00 98.3 72 24 110/58 97 09/27/15 16:00 79 09/27/15 14:00 79 I/O 09/27/15 09/27/15 09/27/15 09/28/15 09/28/15 09/28/15 07:00 15:00 23:00 07:00 15:00 23:00 Intake Total 506 ml 1123 ml 738 ml 482 ml Output Total 250 ml 550 ml 300 ml 200 ml Balance 256 ml 573 ml 438 ml 282 ml IV Total 164 ml 198 ml 258 ml 62 ml Tube Feeding 342 ml 725 ml 480 ml 420 ml Other 200 ml Output Urine Total 250 ml 550 ml 300 ml 200 ml # Bowel Movements 1 2 1 2 Result Diagram: 09/27/15 0351 09/27/15 0351 Imaging Last Impressions Chest X-Ray 09/27/15 0600 Signed Impressions: Service Date/Time: Sunday, September 27, 2015 05:19 - CONCLUSION: Hyperinflation ; otherwise, negative. Milo Jackson MD FACR Abdomen X-Ray 09/21/15 0000 Signed Impressions: Service Date/Time: Monday, September 21, 2015 11:31 - CONCLUSION: Normal bowel gas pattern. Tai Taylor Jr., MD Tunnelled Chest Tube Removal 08/05/15 1100 Signed Impressions: Service Date/Time: Wednesday, August 05, 2015 11:00 - CONCLUSION: Uncomplicated chest tube removal. Blaine Jackson MD Chest Tube Change 07/31/15 0000 Signed Impressions: Service Date/Time: Friday, July 31, 2015 14:34 - CONCLUSION: Uncomplicated reposition of previously placed chest tube as above. Blaine Jackson MD Chest Tube Insertion 07/30/15 0000 Signed Impressions: Service Date/Time: July 14:50 - CONCLUSION: Uncomplicated chest tube placement as above. Blaine Jackson MD Catheter Change 07/27/15 0000 Signed Impressions: Service Date/Time: Monday, July 27, 2015 14:43 - CONCLUSION: Uncomplicated gastrostomy tube exchange as above. Blaine Jackson MD Chest CT 07/11/15 0000 Signed Impressions: Service Date/Time: Saturday, July 11, 2015 09:49 - CONCLUSION: Scattered patchy densities significantly improved from previous study. Tiny anterior right basilar pneumothorax. Right-sided chest tube in good position. Néstor Matamoros MD Head CT 06/18/151902 Signed Impressions: Service Date/Time: June 19:31 - CONCLUSION: Diffuse atrophy unchanged. No acute intracranial findings. Kush Briscoe MD Abdomen/Pelvis CT 06/18/151902 Signed Impressions: Service Date/Time: June 19:36 - CONCLUSION: 1. Chronic nonspecific urinary bladder wall thickening. Bladder collapsed with Put[place] catheter in place. 2. Chronic bilateral mid to lower lung zone groundglass opacity. 3. Nonobstructing left renal calculus. 4. Distended rectum. Kush Briscoe MD Objective Remarks GENERAL: Well-nourished, well-developed patient. SKIN: Warm and dry. HEAD: Normocephalic. EYES: No scleral icterus. No injection or drainage. NECK: Trach in place. CARDIOVASCULAR: Regular rate and rhythm without murmurs, gallops, or rubs. RESPIRATORY: + secretions. Moderate air entry. Scattered rhonchi. GASTROINTESTINAL: Abdomen soft, non-tender, nondistended. MUSCULOSKELETAL: No edema. Contractures and deformities of fingers. Stage III coccyx/sacral decubitus ulcer. NEURO: Unresponsive to voice, not following commands. Procedures 07/26- PEG replacement 07/29- right pigtail catheter placement for new pneumothorax 07/29 Medications and IVs Current Medications Medications (Trade) Dose Ordered Sig/Jassi Route Start Time Stop Time Status Last Admin (NS Flush) 2 ml UNSCH PRN IVF 06/18/15 21:30 08/18/15 05:13 (NS Flush) 2 ml BID IVF 06/19/15 09:00 09/27/15 20:56 (Tylenol 650 Mg/ 20 ml Liq) 650 mg Q6H PRN TUBE 06/18/15 21:30 09/19/15 23:40 (Tears Naturale Opth Soln) 1 drop TID EACH EYE 06/19/15 09:00 09/28/15 09:00 (Zofran Inj) 4 mg Q6H PRN IV 06/18/15 21:30 08/27/15 01:12 (Sinemet 25-100 Mg) 1 tab Q8HR GT 06/19/15 06:00 09/28/15 04:41 (Neurontin) 300 mg BID G-TUBE 06/19/15 09:00 09/28/15 09:48 (Lactinex) 1 tab TID PO 06/19/15 09:00 09/28/15 09:47 (Paxil) 20 mg DAILY G-TUBE 06/19/15 09:00 09/28/15 09:48 (Pill Splitter) 1 ea UNSCH PRN OTHER 06/19/15 03:30 06/28/15 09:35 (Prevacid Odt) 30 mg DAILY NG 07/08/15 09:00 09/28/15 09:48 Miscellaneous Information 1 Q3D TD 07/11/15 08:00 09/24/15 08:00 (Duragesic 50 Mcg Patch.72 Hr) 1 patch Q3D TD 07/08/15 09:00 09/27/15 08:49 (KlonoPIN) 2 mg Q8HR PO 07/09/15 14:00 09/28/15 04:41 (Proamatine) 5 mg BID G-TUBE 07/12/15 09:00 09/28/15 09:47 (SEROquel) 50 mg BID G-TUBE 07/18/15 09:00 09/28/15 09:47 (Morphine Inj) 2 mg Q3H PRN IV PUSH 07/28/15 00:45 08/18/15 05:13 (Peridex 0.12% Liq) 15 ml BID@08,20 MT 07/29/15 20:00 09/28/15 09:47 (Ativan Inj) 0.5 mg Q6H PRN IVP 08/04/15 13:00 09/13/15 07:02 (Lovenox Inj) 40 mg Q24H SQ 08/09/15 22:00 09/27/15 20:51 ([place] 5-325 Mg) 1 tab Q6H PRN PO 08/15/15 15:45 09/27/15 08:44 (Sublimaze Inj) 50 mcg Q2H PRN IV PUSH 08/15/15 15:45 09/28/15 00:38 (ZyPREXA) 5 mg HS GT 08/15/15 21:00 09/27/15 20:51 (Santyl Oint) 1 applic DAILY TOP 08/21/15 09:00 09/28/15 09:00 Hyoscyamine Sulfate 0.125 mg 0.125 mg Q4H PRN PO 09/06/15 11:00 09/23/15 12:38 Potassium Chloride 100 ml @ 50 mls/hr Q2H PRN IV 09/21/15 10:45 (KCl 20 Meq Premix Inj) 100 ml @ 50 mls/hr Q2H PRN IV 09/21/15 10:45 Potassium Chloride 40 meq 40 meq UNSCH PRN PO/TUBE 09/21/15 10:45 Potassium Chloride 100 ml @ 25 mls/hr UNSCH PRN IV 09/21/15 10:45 Potassium Chloride 100 ml @ 50 mls/hr Q2H PRN IV 09/21/15 10:45 (Magnesium Sulfate Inj/NS Inj) 100 ml @ 50 mls/hr UNSCH PRN IV 09/21/15 10:45 Magnesium Oxide 800 mg 800 mg UNSCH PRN PO 09/21/15 10:45 (Magnesium Sulfate Inj/NS Inj) 100 ml @ 50 mls/hr UNSCH PRN IV 09/21/15 10:45 Potassium Phosphate 2000 mg 2,000 mg Q4H PRN PO 09/21/15 10:45 (Sodium Phosphate Inj/NS 250 ml Inj) 250 ml @ 42 mls/hr UNSCH PRN IV 09/21/15 10:45 (KCl 40 Meq/30 ml Liq) 40 meq UNSCH PRN PO/TUBE 09/21/15 10:45 Potassium Phosphate 2000 mg 2,000 mg UNSCH PRN PO/TUBE 09/21/15 10:45 (Potassium Phosphate Inj/NS 250 ml Inj) 260 ml @ 42 mls/hr UNSCH PRN IV 09/21/15 10:45 (D50w (Vial) Inj) 25 ml UNSCH PRN IV PUSH 09/24/15 08:30 (Glucagon Inj) 1 mg UNSCH PRN OTHER 09/24/15 08:30 (NovoLIN R SUPPLEMENTAL SCALE) 1 Q6H SQ 09/24/15 09:00 09/28/15 09:00 (Levemir Inj) 7 units Q12HR SQ 09/25/15 10:00 09/28/15 09:48 Prednisone 60 mg 60 mg DAILY PO 09/28/15 09:00 09/28/15 09:47 (Merrem Inj/NS Inj) 100 ml @ 200 mls/hr Q8H IV 09/28/15 13:00 10/03/15 20:59 Date of Insertion: Jul 30, 2015 A/P Problem List: (1) Sepsis due to urinary tract infection Status: Resolved (2) Acute respiratory failure Status: Resolved (3) Chronic respiratory failure Status: Chronic (4) Parkinson disease Status: Chronic (5) UTI (urinary tract infection) Status: Resolved (6) Encephalopathy Status: Resolved Assessment and Plan Parkinson's disease/ 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 CT head 06/18/15: - diffuse atrophy unchanged. No acute intracranial findings Continue Sinemet 25/100 q8 via PEG, Seroquel 50 mg twice a day, olanzapine 5 mg a night, Klonopin 2 mg every 8 hours, Paxil 20 daily Continue Lortab when necessary pain and fentanyl patch 50 g every 3 days for pain management. Fentanyl bolus prn breakthrough pain or if needed for turning/ nursing care/etc. - PT/OT. Acute on chronic respiratory failure Chronic trach #8 Shiley distal XLT. Appreciate pulmonology consult. S/p treatment for PNA. Right pneumothorax status post pigtail catheter 2 (resolved) . Continues to have secretions. - On CPAP/PSV 01/10 at 35% per pulmonology. - Pulm toilet, trach care. - Exchanged to 8 Distal XLT on 08/15 to facilitate suctioning, trach care. - Bronchodilators ( DuoNeb) every 6 hours. - follow up with pulmonology. - On Solu-Medrol 30 mg BID. Continue to wean. History of orthostasis On midodrine 2.5 mg twice a day at home. - Continue midodrine 5 mg twice a day. Malnutrition Status post PEG - Tolerating Jevity 1.5 at 60 cc an hour per nutrition recommendations. KUB: normal bowel gas pattern. - Currently Prevacid 30 mg per PEG tube daily for GERD. - Currently not on bowel regimen secondary to diarrhea. Hypernatremia Stable. - free water 300 ml every 8 hours. Sepsis/ PNA/ UTI ID was consulted. ESBL klebsiella and cele tropicalis in urine cx. ESBL positive Klebsiella/Pseudomonas pneumonia. Stenotrophomonas in sputum 08/17. MRSA colonization. Watching off abx per ID: Diflucan 08/17-08/26 . Levaquin --08/26 for Stenotrophomonas. Completed course of meropenem for 08/11-08/20 for Klebsiella ESBL/pseudomonas pneumonia. S/p tobramycin as well. CXR 09/05 was unremarkable. 09/21 Urine cx: Pseudomonas ? colonized. 09/19 Sputum cx: Pseudomonas, Kleb pneumonia ESBL pos. - On Lactinex tid. - switch Zosyn to meropenem per ID. Bilateral lower extremity contractures/ Stage III sacral decubitus present on admission Currently has recommended bed. - Wound care evaluate and treat. Currently on Santyl daily with wet-to-dry changes. - Continue physical therapy, GI - Prevacid DVT - SCDs/ Lovenox. Discharge Planning Awaiting clinical improvement. Salazar Santa DO Sep 28, 2015 13:08
--- NOTE | 2015-09-28 18:42 | HHI.PR ---
Subjective Remarks On CPAP/PSV today , since he became tachypneic. O2 sat 96 on 35 %. Neuro status same.On tube feeds. CXR shows no active infiltrate. has a fever up to 100 . Objective Vital Signs Date Time Temp Pulse Resp B/P Pulse Ox O2 Delivery O2 Flow Rate FiO2 09/28/15 17:12 100 35 09/28/15 16:00 100.0 77 32 117/72 95 09/28/15 16:00 85 09/28/15 16:00 35 09/28/15 14:00 88 09/28/15 13:44 99 35 09/28/15 12:00 35 09/28/15 12:00 98 35 09/28/15 12:00 99.9 68 38 118/55 100 09/28/15 10:00 35 09/28/15 10:00 101 09/28/15 09:52 95 35 09/28/15 08:00 35 09/28/15 08:00 98 T-piece 10.00 40 09/28/15 07:50 97 35 09/28/15 06:00 91 09/28/15 04:07 96 35 09/28/15 04:00 98.0 86 29 113/60 96 09/28/15 04:00 35 09/28/15 04:00 86 09/28/15 02:00 81 09/28/15 01:14 96 35 09/28/15 00:00 84 09/28/15 00:00 98.2 84 29 114/60 95 09/28/15 00:00 35 09/27/15 22:00 81 09/27/15 20:00 35 09/27/15 20:00 71 09/27/15 20:00 98.3 71 24 119/66 99 09/27/15 19:21 100 35 I/O 09/27/15 09/27/15 09/27/15 09/28/15 09/28/15 09/28/15 07:00 15:00 23:00 07:00 15:00 23:00 Intake Total 506 ml 1123 ml 738 ml 482 ml 485 ml Output Total 250 ml 550 ml 300 ml 200 ml 275 ml Balance 256 ml 573 ml 438 ml 282 ml 210 ml IV Total 164 ml 198 ml 258 ml 62 ml 155 ml Tube Feeding 342 ml 725 ml 480 ml 420 ml 330 ml Other 200 ml Output Urine Total 250 ml 550 ml 300 ml 200 ml 275 ml # Bowel Movements 1 2 1 2 2 Result Diagram: 09/27/15 0351 09/27/15 0351 Objective Remarks This is a thin white male who is unresponsive ,with a trach tube in place. HEENT: Pupils are equal and reactive to light. Throat injected. CHEST:Decreased breath sounds with few wheezes scattered. CARDIOVASCULAR: S1 and S2 is normal. ABDOMEN: Soft, nondistended. BS +. He has a PEG tube in place. EXTREMITIES: No edema.muscle wasting. ulcer over sacrum. NEURO: Lethargic , and has weak extremities .Reflexes not elicited. Assessment and Plan Assessment and Plan IMPRESSION 1. Respiratory failure, resolving 2. Sepsis, resolving. 3. UTI 4. Tracheobronchitis 5. Parkinson's disease 6. Dementia. 7. Severe Deconditioning. Plan : 1. Cont PSV, /, FIO2 35 % till more stable. 2. Nebs qid , duoneb. 3. Cont Tube feeds at 60 CC 4. T Tube 40 % daytime. 5. Antibiotics per ID. 6. Cont Trach toilet and lavage. 8. T tube 40 % when temp is lower. Darren Kiser MD Sep 28, 2015 18:42
[2015-09-28] MEDS: OLANZapine 5 MG TAB GT SCH (22:43)
[2015-09-28] MEDS: ENOXAPARIN SODIUM 40 MG/0.4 ML SYRINGE SQ SCH (22:44)
[2015-09-29] VITALS (19 sets, daily range): BP systolic 90–120; BP diastolic 53–68; PULSE 66–85; RESP 14–29; TEMP 97.4–100; O2SAT 97–100
[2015-09-29] MEDS: INSULIN NovoLIN REGULAR SUPPLEMENTAL SCALE SQ SCH ×4 (02:53→20:29)
[2015-09-29] MEDS: CARBIDOPA/LEVODOPA 25 MG/100 MG TAB GT SCH ×3 (05:38→20:29)
[2015-09-29] MEDS: clonazePAM 1 MG TAB PO SCH ×3 (05:39→20:28)
[2015-09-29] MEDS: MEROPENEM INJ 1,000 MG in SODIUM CHLORIDE 0.9% INJ 100 ML IV SCH ×3 (05:39→20:27)
[2015-09-29] MEDS: SODIUM CHLORIDE 0.9% FLUSH 5 ML FLUSH IVF SCH ×2 (09:00→20:27)
[2015-09-29] MEDS: LANSOPRAZOLE SOLUTAB 30 MG TAB NG SCH (09:58)
[2015-09-29] MEDS: PARoxetine HCL 20 MG TAB G-TUBE SCH (09:58)
[2015-09-29] MEDS: LACTOBACILLUS ACIDOPHILUS TAB PO SCH ×3 (09:58→17:20)
[2015-09-29] MEDS: GABAPENTIN 300 MG CAP G-TUBE SCH ×2 (09:58→20:28)
[2015-09-29] MEDS: CHLORHEXIDINE 0.12% (ORAL KIT) 15 ML CUP MT SCH ×2 (09:58→20:27)
[2015-09-29] MEDS: predniSONE 20 MG TAB PO SCH (09:58)
[2015-09-29] MEDS: MIDODRINE 5 MG TAB G-TUBE SCH ×2 (09:58→20:28)
[2015-09-29] MEDS: QUEtiapine FUMARATE 25 MG TAB G-TUBE SCH ×2 (09:58→20:28)
[2015-09-29] MEDS: INSULIN DETEMIR 100 UNITS/ML VIAL SQ SCH ×2 (09:59→20:29)
[2015-09-29] MEDS: ARTIFICIAL TEARS OPTH SOLN 15 ML BTL EACH EYE SCH ×3 (10:00→17:20)
[2015-09-29] MEDS: COLLAGENASE OINT 30 GM TUBE TOP SCH (10:00)
--- NOTE | 2015-09-29 11:43 | HHI.HCPN ---
Family Contact Attempted to contact daughter, Radha, for palliative care follow-up. No answer. Left message requesting return call. Sulma Taylor Sep 29, 2015 11:43
--- NOTE | 2015-09-29 12:26 | HHI.PR ---
Subjective Remarks On CPAP/PSV , FIo2 35 % today . O2 sat 96 on 35 %. Neuro status same.On tube feeds. CXR shows no active infiltrate. has a fever. Objective Vital Signs Date Time Temp Pulse Resp B/P Pulse Ox O2 Delivery O2 Flow Rate FiO2 09/29/15 08:43 100 35 09/29/15 08:00 97.4 78 19 90/53 100 09/29/15 06:00 66 09/29/15 04:09 100 35 09/29/15 04:00 35 09/29/15 04:00 97.5 68 14 97/56 100 09/29/15 04:00 68 09/29/15 02:00 78 09/29/15 01:05 99 35 09/29/15 00:00 35 09/29/15 00:00 78 09/29/15 00:00 97.7 78 21 108/64 99 09/28/15 22:00 66 09/28/15 20:00 35 09/28/15 20:00 72 09/28/15 20:00 97.2 72 19 99/55 99 09/28/15 19:35 100 35 09/28/15 18:50 91 09/28/15 17:12 100 35 09/28/15 16:00 100.0 77 32 117/72 95 09/28/15 16:00 85 09/28/15 16:00 35 09/28/15 14:00 88 09/28/15 13:44 99 35 I/O 09/28/15 09/28/15 09/28/15 09/29/15 09/29/15 09/29/15 07:00 15:00 23:00 07:00 15:00 23:00 Intake Total 482 ml 485 ml 1187 ml 448 ml Output Total 200 ml 275 ml 1350 ml 250 ml Balance 282 ml 210 ml -163 ml 198 ml IV Total 62 ml 155 ml 558 ml 87 ml Tube Feeding 420 ml 330 ml 629 ml 361 ml Output Urine Total 200 ml 275 ml 1350 ml 250 ml # Bowel Movements 2 2 0 0 Result Diagram: 09/27/1535009/27/15350 Objective Remarks This is a thin white male who is unresponsive ,with a trach tube in place. HEENT: Pupils are equal and reactive to light. Throat injected. CHEST:Decreased breath sounds , with few wheezes scattered. CARDIOVASCULAR: S1 and S2 is normal. ABDOMEN: Soft, nondistended. BS +. He has a PEG tube in place. EXTREMITIES: No edema.muscle wasting. ulcer over sacrum. NEURO: Lethargic , and has weak extremities .Reflexes not elicited.Skin is dry. Assessment and Plan Assessment and Plan IMPRESSION 1. Respiratory failure, resolving 2. Sepsis, resolving. 3. UTI 4. Tracheobronchitis 5. Parkinson's disease 6. Dementia. 7. Severe Deconditioning. Plan : 1. Cont PSV, 06/17, FIO2 35 % till more stable. 2. Nebs qid , duoneb. 3. Cont Tube feeds at 60 CC 4. T Tube 40 % daytime. 5. Antibiotics per ID. 6. Cont Trach toilet and lavage. 8. T tube 40 % when temp is lower. Darren Kiser MD Sep 29, 2015 12:26
--- NOTE | 2015-09-29 14:35 | HHI.PR ---
Subjective Remarks The pt was resting comfortably. No acute concerns reported. Objective Vitals Vital Signs Date Time Temp Pulse Resp B/P Pulse Ox O2 Delivery O2 Flow Rate FiO2 09/29/15 12:33 100 35 09/29/15 08:43 100 35 09/29/15 08:00 97.4 78 19 90/53 100 09/29/15 08:00 35 09/29/15 06:00 66 09/29/15 04:09 100 35 09/29/15 04:00 35 09/29/15 04:00 97.5 68 14 97/56 100 09/29/15 04:00 68 09/29/15 02:00 78 09/29/15 01:05 99 35 09/29/15 00:00 35 09/29/15 00:00 78 09/29/15 00:00 97.7 78 21 108/64 99 09/28/15 22:00 66 09/28/15 20:00 35 09/28/15 20:00 72 09/28/15 20:00 97.2 72 19 99/55 99 09/28/15 19:35 100 35 09/28/15 18:50 91 09/28/15 17:12 100 35 09/28/15 16:00 100.0 77 32 117/72 95 09/28/15 16:00 85 09/28/15 16:00 35 I/O 09/28/15 09/28/15 09/28/15 09/29/15 09/29/15 09/29/15 07:00 15:00 23:00 07:00 15:00 23:00 Intake Total 482 ml 485 ml 1187 ml 448 ml Output Total 200 ml 275 ml 1350 ml 250 ml Balance 282 ml 210 ml -163 ml 198 ml IV Total 62 ml 155 ml 558 ml 87 ml Tube Feeding 420 ml 330 ml 629 ml 361 ml Output Urine Total 200 ml 275 ml 1350 ml 250 ml # Bowel Movements 2 2 0 0 Result Diagram: 09/27/15 03509/27/15 0351 Imaging Last Impressions Chest X-Ray 09/27/15 0600 Signed Impressions: Service Date/Time: Sunday, September 27, 2015 05:19 - CONCLUSION: Hyperinflation ; otherwise, negative. Milo Jackson MD FACR Abdomen X-Ray 09/21/15 0000 Signed Impressions: Service Date/Time: Monday, September 21, 2015 11:31 - CONCLUSION: Normal bowel gas pattern. Tai Taylor Jr., MD Tunnelled Chest Tube Removal 08/05/15 1100 Signed Impressions: Service Date/Time: Wednesday, August 05, 2015 11:00 - CONCLUSION: Uncomplicated chest tube removal. Blaine Jackson MD Chest Tube Change 07/31/15 0000 Signed Impressions: Service Date/Time: Friday, July 31, 2015 14:34 - CONCLUSION: Uncomplicated reposition of previously placed chest tube as above. Blaine Jackson MD Chest Tube Insertion 07/30/15 0000 Signed Impressions: Service Date/Time: July 14:50 - CONCLUSION: Uncomplicated chest tube placement as above. Blaine Jackson MD Catheter Change 07/27/15 0000 Signed Impressions: Service Date/Time: Monday, July 27, 2015 14:43 - CONCLUSION: Uncomplicated gastrostomy tube exchange as above. Blaine Jackson MD Chest CT 07/11/15 0000 Signed Impressions: Service Date/Time: Saturday, July 11, 2015 09:49 - CONCLUSION: Scattered patchy densities significantly improved from previous study. Tiny anterior right basilar pneumothorax. Right-sided chest tube in good position. Néstor Matamoros MD Head CT 06/18/151902 Signed Impressions: Service Date/Time: June 19:31 - CONCLUSION: Diffuse atrophy unchanged. No acute intracranial findings. Kush Briscoe MD Abdomen/Pelvis CT 06/18/151902 Signed Impressions: Service Date/Time: June 19:36 - CONCLUSION: 1. Chronic nonspecific urinary bladder wall thickening. Bladder collapsed with Putnam catheter in place. 2. Chronic bilateral mid to lower lung zone groundglass opacity. 3. Nonobstructing left renal calculus. 4. Distended rectum. Kush Briscoe MD Objective Remarks GENERAL: Well-nourished, well-developed patient. SKIN: Warm and dry. HEAD: Normocephalic. EYES: No scleral icterus. No injection or drainage. NECK: Trach in place. CARDIOVASCULAR: Regular rate and rhythm without murmurs, gallops, or rubs. RESPIRATORY: + secretions. Moderate air entry. Scattered rhonchi. GASTROINTESTINAL: Abdomen soft, non-tender, nondistended. MUSCULOSKELETAL: No edema. Contractures and deformities of fingers. Stage III coccyx/sacral decubitus ulcer. NEURO: Unresponsive to voice, not following commands. Procedures 07/26- PEG replacement 07/29- right pigtail catheter placement for new pneumothorax 07/29 Medications and IVs Current Medications Medications (Trade) Dose Ordered Sig/Jassi Route Start Time Stop Time Status Last Admin (NS Flush) 2 ml UNSCH PRN IVF 06/18/15 21:30 08/18/15 05:13 (NS Flush) 2 ml BID IVF 06/19/15 09:00 09/28/15 22:44 (Tylenol 650 Mg/ 20 ml Liq) 650 mg Q6H PRN TUBE 06/18/15 21:30 09/19/15 23:40 (Tears Naturale Opth Soln) 1 drop TID EACH EYE 06/19/15 09:00 09/29/15 13:12 (Zofran Inj) 4 mg Q6H PRN IV 06/18/15 21:30 08/27/15 01:12 (Sinemet 25-100 Mg) 1 tab Q8HR GT 06/19/15 06:00 09/29/15 13:12 (Neurontin) 300 mg BID G-TUBE 06/19/15 09:00 09/29/15 09:58 (Lactinex) 1 tab TID PO 06/19/15 09:00 09/29/15 13:11 (Paxil) 20 mg DAILY G-TUBE 06/19/15 09:00 09/29/15 09:58 (Pill Splitter) 1 ea UNSCH PRN OTHER 06/19/15 03:30 06/28/15 09:35 (Prevacid Odt) 30 mg DAILY NG 07/08/15 09:00 09/29/15 09:58 Miscellaneous Information 1 Q3D TD 07/11/15 08:00 09/24/15 08:00 (Duragesic 50 Mcg Patch.72 Hr) 1 patch Q3D TD 07/08/15 09:00 09/27/15 08:49 (KlonoPIN) 2 mg Q8HR PO 07/09/15 14:00 09/29/15 13:11 (Proamatine) 5 mg BID G-TUBE 07/12/15 09:00 09/29/15 09:58 (SEROquel) 50 mg BID G-TUBE 07/18/15 09:00 09/29/15 09:58 (Morphine Inj) 2 mg Q3H PRN IV PUSH 07/28/15 00:45 08/18/15 05:13 (Peridex 0.12% Liq) 15 ml BID@08,20 MT 07/29/15 20:00 09/29/15 09:58 (Ativan Inj) 0.5 mg Q6H PRN IVP 08/04/15 13:00 09/13/15 07:02 (Lovenox Inj) 40 mg Q24H SQ 08/09/15 22:00 09/28/15 22:44 (Screven 5-325 Mg) 1 tab Q6H PRN PO 08/15/15 15:45 09/27/15 08:44 (Sublimaze Inj) 50 mcg Q2H PRN IV PUSH 08/15/15 15:45 09/28/15 00:38 (ZyPREXA) 5 mg HS GT 08/15/15 21:00 09/28/15 22:43 (Santyl Oint) 1 applic DAILY TOP 08/21/15 09:00 09/29/15 10:00 Hyoscyamine Sulfate 0.125 mg 0.125 mg Q4H PRN PO 09/06/15 11:00 09/23/15 12:38 Potassium Chloride 100 ml @ 50 mls/hr Q2H PRN IV 09/21/15 10:45 (KCl 20 Meq Premix Inj) 100 ml @ 50 mls/hr Q2H PRN IV 09/21/15 10:45 Potassium Chloride 40 meq 40 meq UNSCH PRN PO/TUBE 09/21/15 10:45 Potassium Chloride 100 ml @ 25 mls/hr UNSCH PRN IV 09/21/15 10:45 Potassium Chloride 100 ml @ 50 mls/hr Q2H PRN IV 09/21/15 10:45 (Magnesium Sulfate Inj/NS Inj) 100 ml @ 50 mls/hr UNSCH PRN IV 09/21/15 10:45 Magnesium Oxide 800 mg 800 mg UNSCH PRN PO 09/21/15 10:45 (Magnesium Sulfate Inj/NS Inj) 100 ml @ 50 mls/hr UNSCH PRN IV 09/21/15 10:45 Potassium Phosphate 2000 mg 2,000 mg Q4H PRN PO 09/21/15 10:45 (Sodium Phosphate Inj/NS 250 ml Inj) 250 ml @ 42 mls/hr UNSCH PRN IV 09/21/15 10:45 (KCl 40 Meq/30 ml Liq) 40 meq UNSCH PRN PO/TUBE 09/21/15 10:45 Potassium Phosphate 2000 mg 2,000 mg UNSCH PRN PO/TUBE 09/21/15 10:45 (Potassium Phosphate Inj/NS 250 ml Inj) 260 ml @ 42 mls/hr UNSCH PRN IV 09/21/15 10:45 (D50w (Vial) Inj) 25 ml UNSCH PRN IV PUSH 09/24/15 08:30 (Glucagon Inj) 1 mg UNSCH PRN OTHER 09/24/15 08:30 (NovoLIN R SUPPLEMENTAL SCALE) 1 Q6H SQ 09/24/15 09:00 09/29/15 09:59 (Levemir Inj) 7 units Q12HR SQ 09/25/15 10:00 09/29/15 09:59 Prednisone 60 mg 60 mg DAILY PO 09/28/15 09:00 09/29/15 09:58 (Merrem Inj/NS Inj) 100 ml @ 200 mls/hr Q8H IV 09/28/15 13:00 10/03/15 20:59 09/29/15 13:11 Date of Insertion: Jul 30, 2015 A/P Problem List: (1) Sepsis due to urinary tract infection Status: Resolved (2) Acute respiratory failure Status: Resolved (3) Chronic respiratory failure Status: Chronic (4) Parkinson disease Status: Chronic (5) UTI (urinary tract infection) Status: Resolved (6) Encephalopathy Status: Resolved Assessment and Plan Parkinson's disease/ 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 CT head 06/18/15: - diffuse atrophy unchanged. No acute intracranial findings Continue Sinemet 25/100 q8 via PEG, Seroquel 50 mg twice a day, olanzapine 5 mg a night, Klonopin 2 mg every 8 hours, Paxil 20 daily Continue Lortab when necessary pain and fentanyl patch 50 g every 3 days for pain management. Fentanyl bolus prn breakthrough pain or if needed for turning/ nursing care/etc. - PT/OT. Acute on chronic respiratory failure Chronic trach #8 Shiley distal XLT. Appreciate pulmonology consult. S/p treatment for PNA. Right pneumothorax status post pigtail catheter 2 (resolved) . Continues to have secretions. - On CPAP/PSV 01/10 at 35% per pulmonology. - Pulm toilet, trach care. - Exchanged to 8 Distal XLT on 08/15 to facilitate suctioning, trach care. - Bronchodilators ( DuoNeb) every 6 hours. - follow up with pulmonology. - On Solu-Medrol 30 mg BID. Continue to wean. History of orthostasis On midodrine 2.5 mg twice a day at home. - Continue midodrine 5 mg twice a day. Malnutrition Status post PEG - Tolerating Jevity 1.5 at 60 cc an hour per nutrition recommendations. KUB: normal bowel gas pattern. - Currently Prevacid 30 mg per PEG tube daily for GERD. - Currently not on bowel regimen secondary to diarrhea. Hypernatremia Stable. - free water 300 ml every 8 hours. Sepsis/ PNA/ UTI ID was consulted. ESBL klebsiella and cele tropicalis in urine cx. ESBL positive Klebsiella/Pseudomonas pneumonia. Stenotrophomonas in sputum 08/17. MRSA colonization. Watching off abx per ID: Diflucan 08/17-08/26 . Levaquin --08/26 for Stenotrophomonas. Completed course of meropenem for 08/11-08/20 for Klebsiella ESBL/pseudomonas pneumonia. S/p tobramycin as well. CXR 09/05 was unremarkable. 09/21 Urine cx: Pseudomonas ? colonized. 09/19 Sputum cx: Pseudomonas, Kleb pneumonia ESBL pos. - On Lactinex tid. - switch Zosyn to meropenem per ID. Bilateral lower extremity contractures/ Stage III sacral decubitus present on admission Currently has recommended bed. - Wound care evaluate and treat. Currently on Santyl daily with wet-to-dry changes. - Continue physical therapy, GI - Prevacid DVT - SCDs/ Lovenox. Discharge Planning Awaiting clinical improvement. Salazar Santa DO Sep 29, 2015 14:35
[2015-09-29] MEDS: ACETAMINOPHEN 650 MG/20.3 ML UDC TUBE PRN (16:23)
[2015-09-29] MEDS: ENOXAPARIN SODIUM 40 MG/0.4 ML SYRINGE SQ SCH (20:28)
[2015-09-29] MEDS: OLANZapine 5 MG TAB GT SCH (20:28)
[2015-09-30] VITALS (18 sets, daily range): BP systolic 106–123; BP diastolic 56–62; PULSE 64–91; RESP 19–38; TEMP 96.7–100.1; O2SAT 98–100
[2015-09-30] MEDS: INSULIN NovoLIN REGULAR SUPPLEMENTAL SCALE SQ SCH ×4 (03:00→21:45)
[2015-09-30] MEDS: MEROPENEM INJ 1,000 MG in SODIUM CHLORIDE 0.9% INJ 100 ML IV SCH ×3 (05:00→21:40)
[2015-09-30] MEDS: CARBIDOPA/LEVODOPA 25 MG/100 MG TAB GT SCH ×3 (05:14→21:39)
[2015-09-30] MEDS: clonazePAM 1 MG TAB PO SCH ×3 (05:15→21:40)
[2015-09-30] MEDS: REMOVE OLD PATCH TD SCH (08:00)
[2015-09-30] MEDS: CHLORHEXIDINE 0.12% (ORAL KIT) 15 ML CUP MT SCH ×2 (08:59→21:39)
[2015-09-30] MEDS: LACTOBACILLUS ACIDOPHILUS TAB PO SCH ×3 (09:00→17:24)
[2015-09-30] MEDS: ARTIFICIAL TEARS OPTH SOLN 15 ML BTL EACH EYE SCH ×3 (09:00→17:25)
[2015-09-30] MEDS: SODIUM CHLORIDE 0.9% FLUSH 5 ML FLUSH IVF SCH ×2 (09:01→21:40)
[2015-09-30] MEDS: GABAPENTIN 300 MG CAP G-TUBE SCH ×2 (09:01→21:39)
[2015-09-30] MEDS: predniSONE 20 MG TAB PO SCH (09:01)
[2015-09-30] MEDS: PARoxetine HCL 20 MG TAB G-TUBE SCH (09:01)
[2015-09-30] MEDS: MIDODRINE 5 MG TAB G-TUBE SCH ×2 (09:01→21:40)
[2015-09-30] MEDS: LANSOPRAZOLE SOLUTAB 30 MG TAB NG SCH (09:01)
[2015-09-30] MEDS: ACETAMINOPHEN 650 MG/20.3 ML UDC TUBE PRN (09:01)
[2015-09-30] MEDS: QUEtiapine FUMARATE 25 MG TAB G-TUBE SCH ×2 (09:01→21:40)
[2015-09-30] MEDS: INSULIN DETEMIR 100 UNITS/ML VIAL SQ SCH ×2 (09:02→21:39)
[2015-09-30] MEDS: fentaNYL 50 MCG/HR PATCH TD SCH (09:02)
[2015-09-30] MEDS: COLLAGENASE OINT 30 GM TUBE TOP SCH (09:03)
--- NOTE | 2015-09-30 11:32 | HHI.PR ---
Subjective Remarks The patient appeared to be comfortable. No overnight events reported. Objective Vitals Vital Signs Date Time Temp Pulse Resp B/P Pulse Ox O2 Delivery O2 Flow Rate FiO2 09/30/15 11:01 100 35 09/30/15 10:24 27 09/30/15 10:00 86 09/30/15 08:07 99 35 09/30/15 08:00 100.1 91 38 123/61 100 09/30/15 08:00 91 09/30/15 08:00 35 09/30/15 06:00 82 09/30/15 05:00 98 35 09/30/15 04:00 77 09/30/15 04:00 99.8 77 25 110/56 98 09/30/15 04:00 35 09/30/15 02:00 78 09/30/15 01:08 99 35 09/30/15 00:00 79 09/30/15 00:00 98.8 79 23 106/58 100 09/30/15 00:00 35 09/29/15 22:41 98 35 09/29/15 22:00 66 09/29/15 20:07 97 35 09/29/15 20:00 78 09/29/15 20:00 98.7 78 24 115/57 98 09/29/15 20:00 35 09/29/15 18:00 85 09/29/15 16:18 98 35 09/29/15 16:00 100.0 83 29 120/68 99 09/29/15 16:00 35 09/29/15 16:00 83 09/29/15 14:00 81 09/29/15 12:33 100 35 09/29/15 12:00 98.8 75 22 117/64 100 09/29/15 12:00 35 09/29/15 12:00 75 I/O 09/29/15 09/29/15 09/29/15 09/30/15 09/30/15 09/30/15 07:00 15:00 23:00 07:00 15:00 23:00 Intake Total 448 ml 1163 ml 518 ml Output Total 250 ml 250 ml 325 ml 250 ml Balance 198 ml -250 ml 838 ml 268 ml IV Total 87 ml 393 ml 117 ml Tube Feeding 361 ml 770 ml 401 ml Output Urine Total 250 ml 250 ml 325 ml 250 ml # Bowel Movements 0 0 2 Result Diagram: 09/27/15 0351 09/27/15 0351 Imaging Last Impressions Chest X-Ray 09/27/15 0600 Signed Impressions: Service Date/Time: Sunday, September 27, 2015 05:19 - CONCLUSION: Hyperinflation ; otherwise, negative. Milo Jackson MD FACR Abdomen X-Ray 09/21/15 0000 Signed Impressions: Service Date/Time: Monday, September 21, 2015 11:31 - CONCLUSION: Normal bowel gas pattern. Tai Taylor Jr., MD Tunnelled Chest Tube Removal 08/05/15 1100 Signed Impressions: Service Date/Time: Wednesday, August 05, 2015 11:00 - CONCLUSION: Uncomplicated chest tube removal. Blaine Jackson MD Chest Tube Change 07/31/15 0000 Signed Impressions: Service Date/Time: Friday, July 31, 2015 14:34 - CONCLUSION: Uncomplicated reposition of previously placed chest tube as above. Blaine Jackson MD Chest Tube Insertion 07/30/15 0000 Signed Impressions: Service Date/Time: July 14:50 - CONCLUSION: Uncomplicated chest tube placement as above. Blaine Jackson MD Catheter Change 07/27/15 0000 Signed Impressions: Service Date/Time: Monday, July 27, 2015 14:43 - CONCLUSION: Uncomplicated gastrostomy tube exchange as above. Blaine Jackson MD Chest CT 07/11/15 0000 Signed Impressions: Service Date/Time: Saturday, July 11, 2015 09:49 - CONCLUSION: Scattered patchy densities significantly improved from previous study. Tiny anterior right basilar pneumothorax. Right-sided chest tube in good position. Néstor Matamoros MD Head CT 06/18/151902 Signed Impressions: Service Date/Time: June 19:31 - CONCLUSION: Diffuse atrophy unchanged. No acute intracranial findings. Kush Briscoe MD Abdomen/Pelvis CT 06/18/151902 Signed Impressions: Service Date/Time: June 19:36 - CONCLUSION: 1. Chronic nonspecific urinary bladder wall thickening. Bladder collapsed with Putnam catheter in place. 2. Chronic bilateral mid to lower lung zone groundglass opacity. 3. Nonobstructing left renal calculus. 4. Distended rectum. Kush Briscoe MD Objective Remarks GENERAL: Well-nourished, well-developed patient. SKIN: Warm and dry. HEAD: Normocephalic. EYES: No scleral icterus. No injection or drainage. NECK: Trach in place. CARDIOVASCULAR: Regular rate and rhythm without murmurs, gallops, or rubs. RESPIRATORY: + secretions. Moderate air entry. Scattered rhonchi. GASTROINTESTINAL: Abdomen soft, non-tender, nondistended. MUSCULOSKELETAL: No edema. Contractures and deformities of fingers. Stage III coccyx/sacral decubitus ulcer. NEURO: Unresponsive to voice, not following commands. Procedures 07/26- PEG replacement 07/29- right pigtail catheter placement for new pneumothorax 07/29 Medications and IVs Current Medications Medications (Trade) Dose Ordered Sig/Jassi Route Start Time Stop Time Status Last Admin (NS Flush) 2 ml UNSCH PRN IVF 06/18/15 21:30 08/18/15 05:13 (NS Flush) 2 ml BID IVF 06/19/15 09:00 09/30/15 09:01 (Tylenol 650 Mg/ 20 ml Liq) 650 mg Q6H PRN TUBE 06/18/15 21:30 09/30/15 09:01 (Tears Naturale Opth Soln) 1 drop TID EACH EYE 06/19/15 09:00 09/30/15 09:00 (Zofran Inj) 4 mg Q6H PRN IV 06/18/15 21:30 08/27/15 01:12 (Sinemet 25-100 Mg) 1 tab Q8HR GT 06/19/15 06:00 09/30/15 05:14 (Neurontin) 300 mg BID G-TUBE 06/19/15 09:00 09/30/15 09:01 (Lactinex) 1 tab TID PO 06/19/15 09:00 09/30/15 09:00 (Paxil) 20 mg DAILY G-TUBE 06/19/15 09:00 09/30/15 09:01 (Pill Splitter) 1 ea UNSCH PRN OTHER 06/19/15 03:30 06/28/15 09:35 (Prevacid Odt) 30 mg DAILY NG 07/08/15 09:00 09/30/15 09:01 Miscellaneous Information 1 Q3D TD 07/11/15 08:00 09/30/15 08:00 (Duragesic 50 Mcg Patch.72 Hr) 1 patch Q3D TD 07/08/15 09:00 09/30/15 09:02 (KlonoPIN) 2 mg Q8HR PO 07/09/15 14:00 09/30/15 05:15 (Proamatine) 5 mg BID G-TUBE 07/12/15 09:00 09/30/15 09:01 (SEROquel) 50 mg BID G-TUBE 07/18/15 09:00 09/30/15 09:01 (Morphine Inj) 2 mg Q3H PRN IV PUSH 07/28/15 00:45 08/18/15 05:13 (Peridex 0.12% Liq) 15 ml BID@08,20 MT 07/29/15 20:00 09/30/15 08:59 (Ativan Inj) 0.5 mg Q6H PRN IVP 08/04/15 13:00 09/13/15 07:02 (Lovenox Inj) 40 mg Q24H SQ 08/09/15 22:00 09/29/15 20:28 (Firth 5-325 Mg) 1 tab Q6H PRN PO 08/15/15 15:45 09/27/15 08:44 (Sublimaze Inj) 50 mcg Q2H PRN IV PUSH 08/15/15 15:45 09/28/15 00:38 (ZyPREXA) 5 mg HS GT 08/15/15 21:00 09/29/15 20:28 (Santyl Oint) 1 applic DAILY TOP 08/21/15 09:00 09/30/15 09:03 Hyoscyamine Sulfate 0.125 mg 0.125 mg Q4H PRN PO 09/06/15 11:00 09/23/15 12:38 Potassium Chloride 100 ml @ 50 mls/hr Q2H PRN IV 09/21/15 10:45 (KCl 20 Meq Premix Inj) 100 ml @ 50 mls/hr Q2H PRN IV 09/21/15 10:45 Potassium Chloride 40 meq 40 meq UNSCH PRN PO/TUBE 09/21/15 10:45 Potassium Chloride 100 ml @ 25 mls/hr UNSCH PRN IV 09/21/15 10:45 Potassium Chloride 100 ml @ 50 mls/hr Q2H PRN IV 09/21/15 10:45 (Magnesium Sulfate Inj/NS Inj) 100 ml @ 50 mls/hr UNSCH PRN IV 09/21/15 10:45 Magnesium Oxide 800 mg 800 mg UNSCH PRN PO 09/21/15 10:45 (Magnesium Sulfate Inj/NS Inj) 100 ml @ 50 mls/hr UNSCH PRN IV 09/21/15 10:45 Potassium Phosphate 2000 mg 2,000 mg Q4H PRN PO 09/21/15 10:45 (Sodium Phosphate Inj/NS 250 ml Inj) 250 ml @ 42 mls/hr UNSCH PRN IV 09/21/15 10:45 (KCl 40 Meq/30 ml Liq) 40 meq UNSCH PRN PO/TUBE 09/21/15 10:45 Potassium Phosphate 2000 mg 2,000 mg UNSCH PRN PO/TUBE 09/21/15 10:45 (Potassium Phosphate Inj/NS 250 ml Inj) 260 ml @ 42 mls/hr UNSCH PRN IV 09/21/15 10:45 (D50w (Vial) Inj) 25 ml UNSCH PRN IV PUSH 09/24/15 08:30 (Glucagon Inj) 1 mg UNSCH PRN OTHER 09/24/15 08:30 (NovoLIN R SUPPLEMENTAL SCALE) 1 Q6H SQ 09/24/15 09:00 09/29/15 09:59 (Levemir Inj) 7 units Q12HR SQ 09/25/15 10:00 09/30/15 09:02 Prednisone 60 mg 60 mg DAILY PO 09/28/15 09:00 09/30/15 09:01 (Merrem Inj/NS Inj) 100 ml @ 200 mls/hr Q8H IV 09/28/15 13:00 10/03/15 20:59 09/30/15 05:00 Date of Insertion: Jul 30, 2015 A/P Problem List: (1) Sepsis due to urinary tract infection Status: Resolved (2) Acute respiratory failure Status: Resolved (3) Chronic respiratory failure Status: Chronic (4) Parkinson disease Status: Chronic (5) UTI (urinary tract infection) Status: Resolved (6) Encephalopathy Status: Resolved Assessment and Plan Parkinson's disease/ 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 CT head 06/18/15: - diffuse atrophy unchanged. No acute intracranial findings Continue Sinemet 25/100 q8 via PEG, Seroquel 50 mg twice a day, olanzapine 5 mg a night, Klonopin 2 mg every 8 hours, Paxil 20 daily Continue Lortab when necessary pain and fentanyl patch 50 g every 3 days for pain management. Fentanyl bolus prn breakthrough pain or if needed for turning/ nursing care/etc. - PT/OT. Acute on chronic respiratory failure Chronic trach #8 Shiley distal XLT. Appreciate pulmonology consult. S/p treatment for PNA. Right pneumothorax status post pigtail catheter 2 (resolved) . Continues to have secretions. - On CPAP/PSV 01/10 at 35% per pulmonology. - Pulm toilet, trach care. - Exchanged to 8 Distal XLT on 08/15 to facilitate suctioning, trach care. - Bronchodilators ( DuoNeb) every 6 hours. - follow up with pulmonology. - On Solu-Medrol 30 mg BID. Continue to wean. History of orthostasis On midodrine 2.5 mg twice a day at home. - Continue midodrine 5 mg twice a day. Malnutrition Status post PEG - Tolerating Jevity 1.5 at 60 cc an hour per nutrition recommendations. KUB: normal bowel gas pattern. - Currently Prevacid 30 mg per PEG tube daily for GERD. - Currently not on bowel regimen secondary to diarrhea. Hypernatremia Stable. - free water 300 ml every 8 hours. Sepsis/ PNA/ UTI ID was consulted. ESBL klebsiella and cele tropicalis in urine cx. ESBL positive Klebsiella/Pseudomonas pneumonia. Stenotrophomonas in sputum 08/17. MRSA colonization. Watching off abx per ID: Diflucan 08/17-08/26 . Levaquin --08/26 for Stenotrophomonas. Completed course of meropenem for 08/11-08/20 for Klebsiella ESBL/pseudomonas pneumonia. S/p tobramycin as well. CXR 09/05 was unremarkable. 09/21 Urine cx: Pseudomonas ? colonized. 09/19 Sputum cx: Pseudomonas, Kleb pneumonia ESBL pos. - On Lactinex tid. - switch Zosyn to meropenem per ID. Bilateral lower extremity contractures/ Stage III sacral decubitus present on admission Currently has recommended bed. - Wound care evaluate and treat. Currently on Santyl daily with wet-to-dry changes. - Continue physical therapy, GI - Prevacid DVT - SCDs/ Lovenox. Discharge Planning Awaiting clinical improvement. Salazar Santa DO Sep 30, 2015 11:32
--- NOTE | 2015-09-30 18:42 | HHI.PR ---
Subjective Remarks On CPAP/PSV , FIo2 35 % today . Tachypneic at times. Neuro status same.On tube feeds. CXR shows no active infiltrate. Temp is lower. Objective Vital Signs Date Time Temp Pulse Resp B/P Pulse Ox O2 Delivery O2 Flow Rate FiO2 09/30/15 18:00 64 09/30/15 16:00 35 09/30/15 16:00 70 09/30/15 16:00 97.4 70 22 114/57 99 09/30/15 15:53 100 35 09/30/15 14:00 65 09/30/15 12:00 74 09/30/15 12:00 35 09/30/15 12:00 99.1 74 20 117/62 100 09/30/15 11:01 100 35 09/30/15 10:24 27 09/30/15 10:00 86 09/30/15 08:07 99 35 09/30/15 08:00 100.1 91 38 123/61 100 09/30/15 08:00 91 09/30/15 08:00 35 09/30/15 06:00 82 09/30/15 05:00 98 35 09/30/15 04:00 77 09/30/15 04:00 99.8 77 25 110/56 98 09/30/15 04:00 35 09/30/15 02:00 78 09/30/15 01:08 99 35 09/30/15 00:00 79 09/30/15 00:00 98.8 79 23 106/58 100 09/30/15 00:00 35 09/29/15 22:41 98 35 09/29/15 22:00 66 09/29/15 20:07 97 35 09/29/15 20:00 78 09/29/15 20:00 98.7 78 24 115/57 98 09/29/15 20:00 35 I/O 09/29/15 09/29/15 09/29/15 09/30/15 09/30/15 09/30/15 07:00 15:00 23:00 07:00 15:00 23:00 Intake Total 448 ml 1163 ml 518 ml 599 ml Output Total 250 ml 250 ml 325 ml 250 ml 450 ml Balance 198 ml -250 ml 838 ml 268 ml 149 ml IV Total 87 ml 393 ml 117 ml 112 ml Tube Feeding 361 ml 770 ml 401 ml 427 ml Tube Irrigant 60 ml Output Urine Total 250 ml 250 ml 325 ml 250 ml 450 ml # Bowel Movements 0 0 2 1 Result Diagram: 09/27/1535009/27/15350 Objective Remarks This is a thin white male who is unresponsive ,with a trach tube in place. HEENT: Pupils are equal and reactive to light. Throat clear. CHEST:Decreased breath sounds , with few wheezes scattered. CARDIOVASCULAR: S1 and S2 is normal. ABDOMEN: Soft, nondistended. BS +. He has a PEG tube in place. EXTREMITIES: No edema.muscle wasting. Decubiti ++. NEURO: Lethargic , and has weak extremities .Reflexes not elicited.Skin is dry. Assessment and Plan Assessment and Plan IMPRESSION 1. Respiratory failure, resolving 2. Sepsis, resolving. 3. UTI 4. Tracheobronchitis 5. Parkinson's disease 6. Dementia. 7. Severe Deconditioning. Plan : 1. Cont PSV, /, FIO2 35 % at 7 Pm to 7 am. 2. Nebs qid , duoneb. 3. Cont Tube feeds at 60 CC 4. T Tube 40 % daytime. upto 12 hrs. 5. Antibiotics per ID. 6. Cont Trach toilet and lavage. [facility]. [facility] Darren Kiser MD Sep 30, 2015 18:42
[2015-09-30] MEDS: OLANZapine 5 MG TAB GT SCH (21:40)
[2015-09-30] MEDS: ENOXAPARIN SODIUM 40 MG/0.4 ML SYRINGE SQ SCH (21:41)
[2015-10-01] VITALS (19 sets, daily range): BP systolic 109–139; BP diastolic 58–81; PULSE 64–77; RESP 15–24; TEMP 97–98.6; O2SAT 97–100
[2015-10-01] MEDS: INSULIN NovoLIN REGULAR SUPPLEMENTAL SCALE SQ SCH ×4 (03:00→21:00)
[2015-10-01] MEDS: CARBIDOPA/LEVODOPA 25 MG/100 MG TAB GT SCH ×3 (05:05→22:21)
[2015-10-01] MEDS: clonazePAM 1 MG TAB PO SCH ×3 (05:05→22:21)
[2015-10-01] MEDS: MEROPENEM INJ 1,000 MG in SODIUM CHLORIDE 0.9% INJ 100 ML IV SCH ×3 (05:05→22:23)
[2015-10-01 07:55] LABS: HEMATOCRIT 30.3 % (39.0-51.0); MEAN CELL VOLUME 82.7 FL (80.0-100.0); MEAN CORPUSCULAR HEMOGLOBIN 26.3 PG (27.0-34.0); MEAN CORPUSCULAR HGB CONC 31.7 % (32.0-36.0); PLATELET COUNT 182 TH/MM3 (150-450); RED BLOOD COUNT 3.67 MIL/MM3 (4.50-5.90); RED CELL DISTRIBUTION WIDTH 16.9 % (11.6-17.2); REVIEW FLAG FINAL
[2015-10-01 08:14] LABS: BICARBONATE 34.4 MEQ/L (21.0-32.0); MAGNESIUM 2.1 MG/DL (1.5-2.5); POTASSIUM 4.1 MEQ/L (3.5-5.1)
[2015-10-01] MEDS: ARTIFICIAL TEARS OPTH SOLN 15 ML BTL EACH EYE SCH ×3 (09:08→17:25)
[2015-10-01] MEDS: COLLAGENASE OINT 30 GM TUBE TOP SCH (09:08)
[2015-10-01] MEDS: CHLORHEXIDINE 0.12% (ORAL KIT) 15 ML CUP MT SCH ×2 (09:08→22:23)
[2015-10-01] MEDS: LANSOPRAZOLE SOLUTAB 30 MG TAB NG SCH (09:09)
[2015-10-01] MEDS: SODIUM CHLORIDE 0.9% FLUSH 5 ML FLUSH IVF SCH ×2 (09:09→22:22)
[2015-10-01] MEDS: LACTOBACILLUS ACIDOPHILUS TAB PO SCH ×3 (09:09→17:25)
[2015-10-01] MEDS: PARoxetine HCL 20 MG TAB G-TUBE SCH (09:09)
[2015-10-01] MEDS: predniSONE 20 MG TAB PO SCH (09:09)
[2015-10-01] MEDS: QUEtiapine FUMARATE 25 MG TAB G-TUBE SCH ×2 (09:09→22:21)
[2015-10-01] MEDS: MIDODRINE 5 MG TAB G-TUBE SCH ×2 (09:09→22:21)
[2015-10-01] MEDS: INSULIN DETEMIR 100 UNITS/ML VIAL SQ SCH ×2 (09:09→22:22)
[2015-10-01] MEDS: GABAPENTIN 300 MG CAP G-TUBE SCH ×2 (09:09→22:21)
--- NOTE | 2015-10-01 12:40 | HHI.PR ---
Subjective Remarks On CPAP/PSV , FIo2 35 % today . Seems better. Neuro status same. On tube feeds. No fever. Objective Vital Signs Date Time Temp Pulse Resp B/P Pulse Ox O2 Delivery O2 Flow Rate FiO2 10/01/15 11:43 97 35 10/01/15 10:00 70 10/01/15 08:21 100 35 10/01/15 08:00 98.6 76 22 114/58 99 10/01/15 08:00 76 10/01/15 08:00 35 10/01/15 06:00 77 10/01/15 04:08 100 35 10/01/15 04:00 35 10/01/15 04:00 77 10/01/15 04:00 98.0 77 19 123/67 100 10/01/15 02:00 70 10/01/15 00:51 100 35 10/01/15 00:00 74 10/01/15 00:00 97.0 74 18 109/60 100 10/01/15 00:00 35 09/30/15 22:00 69 09/30/15 20:02 98 35 09/30/15 20:00 64 09/30/15 20:00 35 09/30/15 20:00 96.7 64 19 116/59 98 09/30/15 18:00 64 09/30/15 16:00 35 09/30/15 16:00 70 09/30/15 16:00 97.4 70 22 114/57 99 09/30/15 15:53 100 35 09/30/15 14:00 65 I/O 09/30/15 09/30/15 09/30/15 10/01/15 10/01/15 10/01/15 07:00 15:00 23:00 07:00 15:00 23:00 Intake Total 518 ml 599 ml 708 ml 519 ml Output Total 250 ml 450 ml 200 ml 150 ml Balance 268 ml 149 ml 508 ml 369 ml IV Total 117 ml 112 ml 237 ml 119 ml Tube Feeding 401 ml 427 ml 471 ml 400 ml Tube Irrigant 60 ml Output Urine Total 250 ml 450 ml 200 ml 150 ml # Bowel Movements 2 1 1 3 Result Diagram: 10/01/1529 10/01/15628 Objective Remarks This is a thin white male who is unresponsive ,with a trach tube in place. HEENT: Pupils are equal and reactive to light. Throat clear. CHEST:Decreased breath sounds , with few wheezes scattered. CARDIOVASCULAR: S1 and S2 is normal.No murmur. ABDOMEN: Soft, nondistended. BS +. He has a PEG tube in place. EXTREMITIES: No edema.muscle wasting. Decubitus ++. NEURO: Lethargic , and has weak extremities .Reflexes not elicited.Skin is dry. Assessment and Plan Assessment and Plan IMPRESSION 1. Respiratory failure, resolving 2. Sepsis, resolving. 3. UTI 4. Tracheobronchitis 5. Parkinson's disease 6. Dementia. 7. Severe Deconditioning. Plan : 1. Cont PSV, 06/17, FIO2 35 % at 7 Pm to 7 am. 2. Nebs qid , duoneb. 3. Cont Tube feeds at 60 CC 4. T Tube 40 % daytime. upto 12 hrs. 5. Antibiotics per ID. 6. Cont Trach toilet and lavage. 8. Labs in am. Darren Kiser MD Oct 01, 2015 12:40
--- NOTE | 2015-10-01 13:16 | HHI.PR ---
Subjective Remarks 54 y/o male [facility] resident with advanced Parkinson's disease ; dementia; tracheostomy and PEG tube . Patient is Bedbound status and Unable to communicate 10/01/15-patient seen and examined. Nonverbal and no change. Vitals stable and currently afebrile. Case discussed with RN Objective Vitals Vital Signs Date Time Temp Pulse Resp B/P Pulse Ox O2 Delivery O2 Flow Rate FiO2 10/01/15 12:00 97.4 70 15 122/62 98 10/01/15 12:00 70 10/01/15 11:43 97 35 10/01/15 10:00 70 10/01/15 08:21 100 35 10/01/15 08:00 98.6 76 22 114/58 99 10/01/15 08:00 76 10/01/15 08:00 35 10/01/15 06:00 77 10/01/15 04:08 100 35 10/01/15 04:00 35 10/01/15 04:00 77 10/01/15 04:00 98.0 77 19 123/67 100 10/01/15 02:00 70 10/01/15 00:51 100 35 10/01/15 00:00 74 10/01/15 00:00 97.0 74 18 109/60 100 10/01/15 00:00 35 09/30/15 22:00 69 09/30/15 20:02 98 35 09/30/15 20:00 64 09/30/15 20:00 35 09/30/15 20:00 96.7 64 19 116/59 98 09/30/15 18:00 64 09/30/15 16:00 35 09/30/15 16:00 70 09/30/15 16:00 97.4 70 22 114/57 99 09/30/15 15:53 100 35 09/30/15 14:00 65 I/O 09/30/15 09/30/15 09/30/15 10/01/15 10/01/15 10/01/15 07:00 15:00 23:00 07:00 15:00 23:00 Intake Total 518 ml 599 ml 708 ml 519 ml Output Total 250 ml 450 ml 200 ml 150 ml Balance 268 ml 149 ml 508 ml 369 ml IV Total 117 ml 112 ml 237 ml 119 ml Tube Feeding 401 ml 427 ml 471 ml 400 ml Tube Irrigant 60 ml Output Urine Total 250 ml 450 ml 200 ml 150 ml # Bowel Movements 2 1 1 3 Result Diagram: 10/01/1562810/01/15628 Objective Remarks GENERAL: NAD and unable to communicate-trachea in place SKIN: Warm and dry. HEAD: Normocephalic. EYES: No scleral icterus. No injection or drainage. NECK: Supple, trachea midline. No JVD or lymphadenopathy. CARDIOVASCULAR: Regular rate and rhythm without murmurs, gallops, or rubs. RESPIRATORY: Tachypneic, positive use of accessory muscle use. GASTROINTESTINAL: Abdomen soft, non-tender, nondistended. MUSCULOSKELETAL: No cyanosis, or edema. BACK: Nontender without obvious deformity. No CVA tenderness. 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 CT head 06/18/15: - diffuse atrophy unchanged. No acute intracranial findings Continue Sinemet 25/100 q8 via PEG, Seroquel 50 mg twice a day, olanzapine 5 mg a night, Klonopin 2 mg every 8 hours, Paxil 20 daily Continue Lortab when necessary pain and fentanyl patch 50 g every 3 days for pain management. Fentanyl bolus prn breakthrough pain or if needed for turning/ nursing care/etc. - PT/OT. Acute on chronic respiratory failure Chronic trach #8 Shiley distal XLT. Appreciate pulmonology consult. S/p treatment for PNA. Right pneumothorax status post pigtail catheter 2 (resolved) . Continues to have secretions. - On CPAP/PSV 01/10 at 35% per pulmonology. - Pulm toilet, trach care. - Exchanged to 8 Distal XLT on 08/15 to facilitate suctioning, trach care. - Bronchodilators ( DuoNeb) every 6 hours. - follow up with pulmonology. - On Solu-Medrol 30 mg BID. Continue to wean. History of orthostasis On midodrine 2.5 mg twice a day at home. - Continue midodrine 5 mg twice a day. Malnutrition Status post PEG - Tolerating Jevity 1.5 at 60 cc an hour per nutrition recommendations. KUB: normal bowel gas pattern. - Currently Prevacid 30 mg per PEG tube daily for GERD. - Currently not on bowel regimen secondary to diarrhea. Hypernatremia Stable. - free water 300 ml every 8 hours. Sepsis/ PNA/ UTI ID was consulted. ESBL klebsiella and cele tropicalis in urine cx. ESBL positive Klebsiella/Pseudomonas pneumonia. Stenotrophomonas in sputum 08/17. MRSA colonization. Watching off abx per ID: Diflucan 08/17-08/26 . Levaquin --08/26 for Stenotrophomonas. Completed course of meropenem for 08/11-08/20 for Klebsiella ESBL/pseudomonas pneumonia. S/p tobramycin as well. CXR 09/05 was unremarkable. 09/21 Urine cx: Pseudomonas ? colonized. 09/19 Sputum cx: Pseudomonas, Kleb pneumonia ESBL pos. - On Lactinex tid. - On Meropenem per ID. Bilateral lower extremity contractures/ Stage III sacral decubitus present on admission - Wound care evaluate and treat. Currently on Santyl daily with wet-to-dry changes. - Continue physical therapy, GI - Prevacid DVT - SCDs/ Lovenox. Néstor Linn MD Oct 01, 2015 13:16
[2015-10-01] MEDS: ENOXAPARIN SODIUM 40 MG/0.4 ML SYRINGE SQ SCH (22:21)
[2015-10-01] MEDS: OLANZapine 5 MG TAB GT SCH (22:21)
[2015-10-02] VITALS (17 sets, daily range): BP systolic 118–150; BP diastolic 62–81; PULSE 59–77; RESP 14–28; TEMP 97.7–99.1; O2SAT 98–100
[2015-10-02] MEDS: INSULIN NovoLIN REGULAR SUPPLEMENTAL SCALE SQ SCH ×4 (03:00→23:45)
[2015-10-02] MEDS: CARBIDOPA/LEVODOPA 25 MG/100 MG TAB GT SCH ×3 (04:25→22:41)
[2015-10-02] MEDS: MEROPENEM INJ 1,000 MG in SODIUM CHLORIDE 0.9% INJ 100 ML IV SCH ×3 (04:25→22:40)
[2015-10-02] MEDS: clonazePAM 1 MG TAB PO SCH ×3 (04:25→22:41)
[2015-10-02] MEDS: INSULIN DETEMIR 100 UNITS/ML VIAL SQ SCH ×2 (09:06→22:41)
[2015-10-02] MEDS: CHLORHEXIDINE 0.12% (ORAL KIT) 15 ML CUP MT SCH ×2 (09:06→22:43)
[2015-10-02] MEDS: predniSONE 20 MG TAB PO SCH (09:07)
[2015-10-02] MEDS: MIDODRINE 5 MG TAB G-TUBE SCH ×2 (09:07→22:41)
[2015-10-02] MEDS: LACTOBACILLUS ACIDOPHILUS TAB PO SCH ×3 (09:07→17:56)
[2015-10-02] MEDS: COLLAGENASE OINT 30 GM TUBE TOP SCH (09:07)
[2015-10-02] MEDS: LANSOPRAZOLE SOLUTAB 30 MG TAB NG SCH (09:07)
[2015-10-02] MEDS: GABAPENTIN 300 MG CAP G-TUBE SCH ×2 (09:07→22:41)
[2015-10-02] MEDS: ARTIFICIAL TEARS OPTH SOLN 15 ML BTL EACH EYE SCH ×3 (09:07→17:56)
[2015-10-02] MEDS: QUEtiapine FUMARATE 25 MG TAB G-TUBE SCH ×2 (09:07→22:41)
[2015-10-02] MEDS: SODIUM CHLORIDE 0.9% FLUSH 5 ML FLUSH IVF SCH ×2 (09:08→22:42)
[2015-10-02] MEDS: PARoxetine HCL 20 MG TAB G-TUBE SCH (09:08)
--- NOTE | 2015-10-02 12:27 | HHI.PR ---
Subjective Remarks 54 y/o male [facility] resident with advanced Parkinson's disease ; dementia; tracheostomy and PEG tube . Patient is Bedbound status and Unable to communicate 10/01/15-patient seen and examined. Nonverbal and no change. Vitals stable and currently afebrile. Case discussed with RN 10/02/15-patient seen and examined. Stable and no change Objective Vitals Vital Signs Date Time Temp Pulse Resp B/P Pulse Ox O2 Delivery O2 Flow Rate FiO2 10/02/15 10:00 69 10/02/15 09:20 100 T-piece 6.00 40 10/02/15 08:00 68 10/02/15 08:00 35 10/02/15 08:00 97.7 68 15 118/62 100 10/02/15 06:00 70 10/02/15 04:00 35 10/02/15 04:00 99.1 65 14 119/63 100 10/02/15 04:00 65 10/02/15 03:51 99 35 10/02/15 02:00 66 10/02/15 01:10 100 35 10/02/15 00:00 98.6 74 18 150/71 100 10/02/15 00:00 35 10/02/15 00:00 74 10/01/15 22:12 100 35 10/01/15 22:00 64 10/01/15 20:00 35 10/01/15 20:00 97.7 77 23 139/81 100 10/01/15 20:00 77 10/01/15 19:27 100 35 10/01/15 18:00 72 10/01/15 16:00 75 10/01/15 16:00 98.0 75 24 130/71 98 10/01/15 14:00 77 10/01/15 12:30 98 T-piece 6.00 35 I/O 10/01/15 10/01/15 10/01/15 10/02/15 10/02/15 10/02/15 07:00 15:00 23:00 07:00 15:00 23:00 Intake Total 519 ml 671 ml 642 ml 602 ml Output Total 150 ml 700 ml 450 ml Balance 369 ml 671 ml -58 ml 152 ml IV Total 119 ml 168 ml 36 ml 141 ml Tube Feeding 400 ml 443 ml 506 ml 361 ml Tube Irrigant 60 ml Other 100 ml 100 ml Output Urine Total 150 ml 700 ml 450 ml # Voids 4 # Bowel Movements 3 1 0 Result Diagram: 10/01/1562810/01/15628 Objective Remarks GENERAL: NAD and unable to communicate-trachea in place SKIN: Warm and dry. HEAD: Normocephalic. EYES: No scleral icterus. No injection or drainage. NECK: Supple, trachea midline. No JVD or lymphadenopathy. CARDIOVASCULAR: Regular rate and rhythm without murmurs, gallops, or rubs. RESPIRATORY: Tachypneic, positive use of accessory muscle use. GASTROINTESTINAL: Abdomen soft, non-tender, nondistended. MUSCULOSKELETAL: No cyanosis, or edema. BACK: Nontender without obvious deformity. No CVA tenderness. 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 CT head 06/18/15: - diffuse atrophy unchanged. No acute intracranial findings Continue Sinemet 25/100 q8 via PEG, Seroquel 50 mg twice a day, olanzapine 5 mg a night, Klonopin 2 mg every 8 hours, Paxil 20 daily Continue Lortab when necessary pain and fentanyl patch 50 g every 3 days for pain management. Fentanyl bolus prn breakthrough pain or if needed for turning/ nursing care/etc. - PT/OT. Acute on chronic respiratory failure Chronic trach #8 Shiley distal XLT. Appreciate pulmonology consult. S/p treatment for PNA. Right pneumothorax status post pigtail catheter 2 (resolved) . Continues to have secretions. - On CPAP/PSV 01/10 at 35% per pulmonology. - Pulm toilet, trach care. - Exchanged to 8 Distal XLT on 08/15 to facilitate suctioning, trach care. - Bronchodilators ( DuoNeb) every 6 hours. - follow up with pulmonology. - On Solu-Medrol 30 mg BID. Continue to wean. History of orthostasis On midodrine 2.5 mg twice a day at home. - Continue midodrine 5 mg twice a day. Malnutrition Status post PEG - Tolerating Jevity 1.5 at 60 cc an hour per nutrition recommendations. KUB: normal bowel gas pattern. - Currently Prevacid 30 mg per PEG tube daily for GERD. - Currently not on bowel regimen secondary to diarrhea. Hypernatremia Stable. - free water 300 ml every 8 hours. Sepsis/ PNA/ UTI ID was consulted. ESBL klebsiella and cele tropicalis in urine cx. ESBL positive Klebsiella/Pseudomonas pneumonia. Stenotrophomonas in sputum 08/17. MRSA colonization. Watching off abx per ID: Diflucan 08/17-08/26 . Levaquin --08/26 for Stenotrophomonas. Completed course of meropenem for 08/11-08/20 for Klebsiella ESBL/pseudomonas pneumonia. S/p tobramycin as well. CXR 09/05 was unremarkable. 09/21 Urine cx: Pseudomonas ? colonized. 09/19 Sputum cx: Pseudomonas, Kleb pneumonia ESBL pos. - On Lactinex tid. - On Meropenem per ID. Bilateral lower extremity contractures/ Stage III sacral decubitus present on admission - Wound care evaluate and treat. Currently on Santyl daily with wet-to-dry changes. - Continue physical therapy, GI - Prevacid DVT - SCDs/ Lovenox. Néstor Linn MD Oct 02, 2015 12:27
[2015-10-02] MEDS: OLANZapine 5 MG TAB GT SCH (22:41)
[2015-10-02] MEDS: ENOXAPARIN SODIUM 40 MG/0.4 ML SYRINGE SQ SCH (22:41)
[2015-10-03] VITALS (18 sets, daily range): BP systolic 103–143; BP diastolic 57–78; PULSE 57–80; RESP 15–24; TEMP 97.7–99.2; O2SAT 97–100
[2015-10-03] MEDS: INSULIN NovoLIN REGULAR SUPPLEMENTAL SCALE SQ SCH ×4 (03:00→21:54)
[2015-10-03] MEDS: clonazePAM 1 MG TAB PO SCH ×3 (04:11→21:54)
[2015-10-03] MEDS: MEROPENEM INJ 1,000 MG in SODIUM CHLORIDE 0.9% INJ 100 ML IV SCH ×2 (04:12→13:00)
[2015-10-03] MEDS: CARBIDOPA/LEVODOPA 25 MG/100 MG TAB GT SCH ×3 (04:12→21:54)
[2015-10-03] MEDS: CHLORHEXIDINE 0.12% (ORAL KIT) 15 ML CUP MT SCH ×2 (08:00→21:52)
[2015-10-03] MEDS: REMOVE OLD PATCH TD SCH (08:00)
[2015-10-03] MEDS: LACTOBACILLUS ACIDOPHILUS TAB PO SCH ×3 (08:15→16:51)
[2015-10-03] MEDS: PARoxetine HCL 20 MG TAB G-TUBE SCH (08:16)
[2015-10-03] MEDS: QUEtiapine FUMARATE 25 MG TAB G-TUBE SCH ×2 (08:16→21:53)
[2015-10-03] MEDS: MIDODRINE 5 MG TAB G-TUBE SCH ×2 (08:16→21:52)
[2015-10-03] MEDS: GABAPENTIN 300 MG CAP G-TUBE SCH ×2 (08:16→21:52)
[2015-10-03] MEDS: LANSOPRAZOLE SOLUTAB 30 MG TAB NG SCH (08:17)
[2015-10-03] MEDS: predniSONE 20 MG TAB PO SCH (08:17)
[2015-10-03] MEDS: COLLAGENASE OINT 30 GM TUBE TOP SCH (08:18)
[2015-10-03] MEDS: fentaNYL 50 MCG/HR PATCH TD SCH (08:18)
[2015-10-03] MEDS: INSULIN DETEMIR 100 UNITS/ML VIAL SQ SCH ×2 (08:19→21:00)
[2015-10-03] MEDS: SODIUM CHLORIDE 0.9% FLUSH 5 ML FLUSH IVF SCH ×2 (08:22→21:53)
[2015-10-03] MEDS: HYOSCYAMINE SOLN 0.125 MG/ML 15 ML BTL PO PRN (08:24)
[2015-10-03] MEDS: ARTIFICIAL TEARS OPTH SOLN 15 ML BTL EACH EYE SCH ×3 (09:00→18:00)
--- NOTE | 2015-10-03 11:59 | HHI.PR ---
Subjective Remarks 54 y/o male [facility] resident with advanced Parkinson's disease ; dementia; tracheostomy and PEG tube . Patient is Bedbound status and Unable to communicate 10/01/15-patient seen and examined. Nonverbal and no change. Vitals stable and currently afebrile. Case discussed with RN 10/02/15-patient seen and examined. Stable and no change 10/03/15-patient seen and examined. Nonverbal and does not follow command. Vital stable. Case discussed with registered nurse. Objective Vitals Vital Signs Date Time Temp Pulse Resp B/P Pulse Ox O2 Delivery O2 Flow Rate FiO2 10/03/15 10:14 100 T-piece 6.00 35 10/03/15 09:18 22 10/03/15 08:00 98.0 65 22 112/61 100 10/03/15 08:00 67 10/03/15 06:00 70 10/03/15 04:09 100 35 10/03/15 04:00 77 10/03/15 04:00 97.7 77 24 136/74 99 10/03/15 02:00 57 10/03/15 01:08 99 35 10/03/15 00:00 99.2 75 22 143/78 99 10/03/15 00:00 75 10/02/15 22:08 99 35 10/02/15 22:00 77 10/02/15 20:00 76 10/02/15 20:00 99.1 76 28 143/81 100 10/02/15 19:52 100 35 10/02/15 19:52 100 BiPAP 35 10/02/15 18:00 59 10/02/15 16:00 97.8 71 18 135/72 98 10/02/15 16:00 71 10/02/15 14:00 67 10/02/15 12:00 98.0 72 16 119/63 98 10/02/15 12:00 72 I/O 10/02/15 10/02/15 10/02/15 10/03/15 10/03/15 10/03/15 07:00 15:00 23:00 07:00 15:00 23:00 Intake Total 602 ml 952 ml 734 ml 550 ml Output Total 450 ml 750 ml 700 ml 700 ml Balance 152 ml 202 ml 34 ml -150 ml IV Total 141 ml 131 ml 168 ml 150 ml Tube Feeding 361 ml 581 ml 466 ml 300 ml Other 100 ml 240 ml 100 ml 100 ml Output Urine Total 450 ml 750 ml 700 ml 700 ml # Bowel Movements 0 1 1 1 Result Diagram: 10/01/1562810/01/15628 Objective Remarks GENERAL: NAD and unable to communicate-trachea in place SKIN: Warm and dry. HEAD: Normocephalic. EYES: No scleral icterus. No injection or drainage. NECK: Supple, trachea midline. No JVD or lymphadenopathy. CARDIOVASCULAR: Regular rate and rhythm without murmurs, gallops, or rubs. RESPIRATORY: Tachypneic, positive use of accessory muscle use. GASTROINTESTINAL: Abdomen soft, non-tender, nondistended. MUSCULOSKELETAL: No cyanosis, or edema. BACK: Nontender without obvious deformity. No CVA tenderness. 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 CT head 06/18/15: - diffuse atrophy unchanged. No acute intracranial findings Continue Sinemet 25/100 q8 via PEG, Seroquel 50 mg twice a day, olanzapine 5 mg a night, Klonopin 2 mg every 8 hours, Paxil 20 daily Continue Lortab when necessary pain and fentanyl patch 50 g every 3 days for pain management. Fentanyl bolus prn breakthrough pain or if needed for turning/ nursing care/etc. - PT/OT. Acute on chronic respiratory failure Chronic trach #8 Shiley distal XLT. Appreciate pulmonology consult. S/p treatment for PNA. Right pneumothorax status post pigtail catheter 2 (resolved) . Continues to have secretions. - On CPAP/PSV 01/10 at 35% per pulmonology. - Pulm toilet, trach care. - Exchanged to 8 Distal XLT on 08/15 to facilitate suctioning, trach care. - Bronchodilators ( DuoNeb) every 6 hours. - follow up with pulmonology. - On prednisone 60 mg daily. History of orthostasis On midodrine 2.5 mg twice a day at home. - Continue midodrine 5 mg twice a day. Malnutrition Status post PEG - Tolerating Jevity 1.5 at 60 cc an hour per nutrition recommendations. KUB: normal bowel gas pattern. - Currently Prevacid 30 mg per PEG tube daily for GERD. - Currently not on bowel regimen secondary to diarrhea. Hypernatremia Stable. - free water 300 ml every 8 hours. Sepsis/ PNA/ UTI ID was consulted. ESBL klebsiella and cele tropicalis in urine cx. ESBL positive Klebsiella/Pseudomonas pneumonia. Stenotrophomonas in sputum 08/17. MRSA colonization. Watching off abx per ID: Diflucan 08/17-08/26 . Levaquin --08/26 for Stenotrophomonas. Completed course of meropenem for 08/11-08/20 for Klebsiella ESBL/pseudomonas pneumonia. S/p tobramycin as well. CXR 09/05 was unremarkable. 09/21 Urine cx: Pseudomonas ? colonized. 09/19 Sputum cx: Pseudomonas, Kleb pneumonia ESBL pos. - On Lactinex tid. - On Meropenem per ID. Bilateral lower extremity contractures/ Stage III sacral decubitus present on admission - Wound care evaluate and treat. Currently on Santyl daily with wet-to-dry changes. - Continue physical therapy, GI - Prevacid DVT - SCDs/ Lovenox. Néstor Linn MD Oct 03, 2015 11:59
[2015-10-03] MEDS: OLANZapine 5 MG TAB GT SCH (21:53)
[2015-10-03] MEDS: ENOXAPARIN SODIUM 40 MG/0.4 ML SYRINGE SQ SCH (21:54)
[2015-10-04] VITALS (18 sets, daily range): BP systolic 65–127; BP diastolic 57–71; PULSE 61–76; RESP 12–17; TEMP 97.4–98.5; O2SAT 96–100
[2015-10-04] MEDS: INSULIN NovoLIN REGULAR SUPPLEMENTAL SCALE SQ SCH ×4 (03:00→22:47)
[2015-10-04] MEDS: clonazePAM 1 MG TAB PO SCH ×3 (06:19→22:48)
[2015-10-04] MEDS: CARBIDOPA/LEVODOPA 25 MG/100 MG TAB GT SCH ×3 (06:19→22:48)
[2015-10-04] MEDS: CHLORHEXIDINE 0.12% (ORAL KIT) 15 ML CUP MT SCH ×2 (07:37→22:49)
[2015-10-04] MEDS: INSULIN DETEMIR 100 UNITS/ML VIAL SQ SCH ×2 (07:38→22:48)
[2015-10-04] MEDS: predniSONE 20 MG TAB PO SCH (07:39)
[2015-10-04] MEDS: QUEtiapine FUMARATE 25 MG TAB G-TUBE SCH ×2 (07:40→22:47)
[2015-10-04] MEDS: GABAPENTIN 300 MG CAP G-TUBE SCH ×2 (07:40→22:48)
[2015-10-04] MEDS: MIDODRINE 5 MG TAB G-TUBE SCH ×2 (07:40→22:48)
[2015-10-04] MEDS: LANSOPRAZOLE SOLUTAB 30 MG TAB NG SCH (07:40)
[2015-10-04] MEDS: LACTOBACILLUS ACIDOPHILUS TAB PO SCH ×3 (07:40→17:15)
[2015-10-04] MEDS: PARoxetine HCL 20 MG TAB G-TUBE SCH (07:40)
[2015-10-04] MEDS: COLLAGENASE OINT 30 GM TUBE TOP SCH (07:42)
[2015-10-04] MEDS: SODIUM CHLORIDE 0.9% FLUSH 5 ML FLUSH IVF SCH ×2 (07:46→22:49)
[2015-10-04] MEDS: ARTIFICIAL TEARS OPTH SOLN 15 ML BTL EACH EYE SCH ×3 (08:11→17:15)
--- NOTE | 2015-10-04 12:59 | HHI.PR ---
Subjective Remarks 54 y[facility] male [facility] resident with advanced Parkinson's disease ; dementia; tracheostomy and PEG tube . Patient is Bedbound status and Unable to communicate 10/01/15-patient seen and examined. Nonverbal and no change. Vitals stable and currently afebrile. Case discussed with RN 10/02/15-patient seen and examined. Stable and no change 10/03/15-patient seen and examined. Nonverbal and does not follow command. Vital stable. Case discussed with registered nurse. 10/04/15-patient seen and examined. No change per nurse report in no acute event overnight. Objective Vitals Vital Signs Date Time Temp Pulse Resp B/P Pulse Ox O2 Delivery O2 Flow Rate FiO2 10/04/15 10:00 69 10/04/15 09:50 99 T-piece 6.00 35 10/04/15 08:00 30 10/04/15 08:00 76 10/04/15 08:00 98.0 68 12 91/57 97 10/04/15 06:00 61 10/04/15 04:49 99 30 10/04/15 04:00 97.4 62 12 98/65 99 10/04/15 04:00 62 10/04/15 02:00 70 10/04/15 01:22 99 30 10/04/15 00:00 98.0 76 17 127/71 97 10/04/15 00:00 76 10/03/15 22:39 97 30 10/03/15 22:00 63 10/03/15 21:15 98 30 10/03/15 20:00 63 10/03/15 20:00 35 10/03/15 20:00 98.2 63 15 117/66 98 10/03/15 19:01 98 T-piece 6.00 35 10/03/15 18:00 76 10/03/15 16:00 98.2 77 18 121/59 99 10/03/15 16:00 80 10/03/15 14:00 63 I/O 10/03/15 10/03/15 10/03/15 10/04/15 10/04/15 10/04/15 06:59 14:59 22:59 06:59 14:59 22:59 Intake Total 550 ml 895 ml 565 ml 545 ml Output Total 700 ml 750 ml 500 ml 250 ml Balance -150 ml 145 ml 65 ml 295 ml Intake Oral 0 ml 0 ml IV Total 150 ml 130 ml 40 ml 41 ml Tube Feeding 300 ml 565 ml 465 ml 444 ml Tube Irrigant 60 ml 60 ml Other 100 ml 200 ml Output Urine Total 700 ml 750 ml 500 ml 250 ml # Bowel Movements 1 1 0 0 Result Diagram: 10/01/1562810/01/15628 Objective Remarks GENERAL: NAD and unable to communicate-trachea in place SKIN: Warm and dry. HEAD: Normocephalic. EYES: No scleral icterus. No injection or drainage. NECK: Supple, trachea midline. No JVD or lymphadenopathy. CARDIOVASCULAR: Regular rate and rhythm without murmurs, gallops, or rubs. RESPIRATORY: Tachypneic, positive use of accessory muscle use. GASTROINTESTINAL: Abdomen soft, non-tender, nondistended. MUSCULOSKELETAL: No cyanosis, or edema. BACK: Nontender without obvious deformity. No CVA tenderness. 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 CT head 06/18/15: - diffuse atrophy unchanged. No acute intracranial findings Continue Sinemet 25/100 q8 via PEG, Seroquel 50 mg twice a day, olanzapine 5 mg a night, Klonopin 2 mg every 8 hours, Paxil 20 daily Continue Lortab when necessary pain and fentanyl patch 50 g every 3 days for pain management. Fentanyl bolus prn breakthrough pain or if needed for turning/ nursing care/etc. - PT/OT. Acute on chronic respiratory failure Chronic trach #8 Shiley distal XLT. Appreciate pulmonology consult. S/p treatment for PNA. Right pneumothorax status post pigtail catheter 2 (resolved) . Continues to have secretions. - On CPAP/PSV 01/10 at 35% per pulmonology. - Pulm toilet, trach care. - Exchanged to 8 Distal XLT on 08/15 to facilitate suctioning, trach care. - Bronchodilators ( DuoNeb) every 6 hours. - follow up with pulmonology. - On prednisone 60 mg daily. History of orthostasis On midodrine 2.5 mg twice a day at home. - Continue midodrine 5 mg twice a day. Malnutrition Status post PEG - Tolerating Jevity 1.5 at 60 cc an hour per nutrition recommendations. KUB: normal bowel gas pattern. - Currently Prevacid 30 mg per PEG tube daily for GERD. - Currently not on bowel regimen secondary to diarrhea. Hypernatremia Stable. - free water 300 ml every 8 hours. Sepsis/ PNA/ UTI ID was consulted. ESBL klebsiella and cele tropicalis in urine cx. ESBL positive Klebsiella/Pseudomonas pneumonia. Stenotrophomonas in sputum 08/17. MRSA colonization. Watching off abx per ID: Diflucan 08/17-08/26 . Levaquin --08/26 for Stenotrophomonas. Completed course of meropenem for 08/11-08/20 for Klebsiella ESBL/pseudomonas pneumonia. S/p tobramycin as well. CXR 09/05 was unremarkable. 09/21 Urine cx: Pseudomonas ? colonized. 09/19 Sputum cx: Pseudomonas, Kleb pneumonia ESBL pos. - On Lactinex tid. - On Meropenem per ID. Bilateral lower extremity contractures/ Stage III sacral decubitus present on admission - Wound care evaluate and treat. Currently on Santyl daily with wet-to-dry changes. - Continue physical therapy, GI - Prevacid DVT - SCDs/ Lovenox. Transfer order pending Néstor Linn MD Oct 04, 2015 12:59
[2015-10-04] MEDS: OLANZapine 5 MG TAB GT SCH (22:47)
[2015-10-04] MEDS: ENOXAPARIN SODIUM 40 MG/0.4 ML SYRINGE SQ SCH (22:48)
[2015-10-05] VITALS (17 sets, daily range): BP systolic 97–107; BP diastolic 63–71; PULSE 67–93; RESP 12–16; TEMP 97.5–98.1; O2SAT 95–100
[2015-10-05] MEDS: INSULIN NovoLIN REGULAR SUPPLEMENTAL SCALE SQ SCH ×4 (02:59→21:00)
[2015-10-05] MEDS: clonazePAM 1 MG TAB PO SCH ×3 (05:03→22:11)
[2015-10-05] MEDS: CARBIDOPA/LEVODOPA 25 MG/100 MG TAB GT SCH ×3 (05:03→22:11)
[2015-10-05] MEDS: CHLORHEXIDINE 0.12% (ORAL KIT) 15 ML CUP MT SCH ×2 (08:00→21:34)
[2015-10-05] MEDS: LANSOPRAZOLE SOLUTAB 30 MG TAB NG SCH (08:59)
[2015-10-05] MEDS: GABAPENTIN 300 MG CAP G-TUBE SCH ×2 (08:59→22:11)
[2015-10-05] MEDS: MIDODRINE 5 MG TAB G-TUBE SCH ×2 (08:59→22:11)
[2015-10-05] MEDS: INSULIN DETEMIR 100 UNITS/ML VIAL SQ SCH ×2 (08:59→21:00)
[2015-10-05] MEDS: QUEtiapine FUMARATE 25 MG TAB G-TUBE SCH ×2 (08:59→22:11)
[2015-10-05] MEDS: predniSONE 20 MG TAB PO SCH (08:59)
[2015-10-05] MEDS: PARoxetine HCL 20 MG TAB G-TUBE SCH (09:00)
[2015-10-05] MEDS: ARTIFICIAL TEARS OPTH SOLN 15 ML BTL EACH EYE SCH ×3 (09:00→18:00)
[2015-10-05] MEDS: SODIUM CHLORIDE 0.9% FLUSH 5 ML FLUSH IVF SCH ×2 (09:00→22:12)
[2015-10-05] MEDS: LACTOBACILLUS ACIDOPHILUS TAB PO SCH ×3 (09:00→18:00)
--- NOTE | 2015-10-05 13:30 | HHI.PR ---
Subjective Remarks Follow up chronic respiratory failure, malnutrition. No events reported. Patient is nonverbal and does not follow commands. Objective Vitals Vital Signs Date Time Temp Pulse Resp B/P Pulse Ox O2 Delivery O2 Flow Rate FiO2 10/05/15 12:02 97.8 69 16 97/63 98 10/05/15 12:01 78 10/05/15 12:00 30 10/05/15 10:00 78 10/05/15 08:00 78 10/05/15 08:00 97.8 75 16 107/71 97 10/05/15 08:00 30 10/05/15 07:47 95 T-piece 6.00 35 10/05/15 06:00 78 10/05/15 04:02 97 30 10/05/15 04:00 67 10/05/15 04:00 98.1 67 12 107/69 98 10/05/15 04:00 30 10/05/15 02:00 74 10/05/15 01:48 98 30 10/05/15 00:00 73 10/05/15 00:00 97.9 73 14 99/64 97 10/05/15 00:00 30 10/04/15 23:24 99 30 10/04/15 22:00 66 10/04/15 20:00 98.5 64 16 109/68 99 10/04/15 20:00 30 10/04/15 20:00 64 10/04/15 19:36 98 30 10/04/15 19:34 100 T-piece 6.00 35 10/04/15 18:00 63 10/04/15 16:00 98.0 71 16 92/59 97 10/04/15 16:00 70 10/04/15 16:00 40 10/04/15 14:00 71 I/O 10/04/15 10/04/15 10/04/15 10/05/15 10/05/15 10/05/15 06:59 14:59 22:59 06:59 14:59 22:59 Intake Total 545 ml 673 ml 760 ml 475 ml Output Total 250 ml 350 ml 450 ml 300 ml Balance 295 ml 323 ml 310 ml 175 ml Intake Oral 0 ml 0 ml 0 ml IV Total 41 ml 38 ml 45 ml 21 ml Tube Feeding 444 ml 435 ml 515 ml 334 ml Tube Irrigant 60 ml Other 200 ml 200 ml 120 ml Output Urine Total 250 ml 350 ml 450 ml 300 ml # Bowel Movements 0 1 0 0 Result Diagram: 10/01/1562810/01/15 06 Imaging Last Impressions Chest X-Ray 09/27/15 0600 Signed Impressions: Service Date/Time: Sunday, September 27, 2015 05:19 - CONCLUSION: Hyperinflation ; otherwise, negative. Milo Jackson MD FACR Abdomen X-Ray 09/21/15 0000 Signed Impressions: Service Date/Time: Monday, September 21, 2015 11:31 - CONCLUSION: Normal bowel gas pattern. Tai Taylor Jr., MD Tunnelled Chest Tube Removal 08/05/15 1100 Signed Impressions: Service Date/Time: Wednesday, August 05, 2015 11:00 - CONCLUSION: Uncomplicated chest tube removal. Blaine Jackson MD Chest Tube Change 07/31/15 0000 Signed Impressions: Service Date/Time: Friday, July 31, 2015 14:34 - CONCLUSION: Uncomplicated reposition of previously placed chest tube as above. Blaine Jackson MD Chest Tube Insertion 07/30/15 0000 Signed Impressions: Service Date/Time: July 14:50 - CONCLUSION: Uncomplicated chest tube placement as above. Blaine Jackson MD Catheter Change 07/27/15 0000 Signed Impressions: Service Date/Time: Monday, July 27, 2015 14:43 - CONCLUSION: Uncomplicated gastrostomy tube exchange as above. Blaine Jackson MD Chest CT 07/11/15 0000 Signed Impressions: Service Date/Time: Saturday, July 11, 2015 09:49 - CONCLUSION: Scattered patchy densities significantly improved from previous study. Tiny anterior right basilar pneumothorax. Right-sided chest tube in good position. Néstor Matamoros MD Head CT 06/18/151902 Signed Impressions: Service Date/Time: June 19:31 - CONCLUSION: Diffuse atrophy unchanged. No acute intracranial findings. Kush Briscoe MD Abdomen/Pelvis CT 06/18/151902 Signed Impressions: Service Date/Time: June 19:36 - CONCLUSION: 1. Chronic nonspecific urinary bladder wall thickening. Bladder collapsed with Putnam catheter in place. 2. Chronic bilateral mid to lower lung zone groundglass opacity. 3. Nonobstructing left renal calculus. 4. Distended rectum. Kush Briscoe MD Objective Remarks General: Thin male in no acute distress. Heart: Regular rate and rhythm. No murmur. Lungs: Coarse breath sounds bilaterally. Breathing is nonlabored. Tracheostomy. Abdomen: Soft, nontender, nondistended. Extremities: No lower extremity edema. Psych: Nonverbal. Does not follow commands. Procedures 07/26- PEG replacement 07/29- right pigtail catheter placement for new pneumothorax Urinary Catheter: Yes Assessment to: Continue Putnam insert reason: Prolonged Immobilization Date of Insertion: Jul 30, 2015 Vascular Central Line Catheter: No A/P Problem List: (1) Sepsis due to urinary tract infection Status: Resolved (2) Acute respiratory failure Status: Resolved (3) Chronic respiratory failure Status: Chronic (4) Parkinson disease Status: Chronic (5) UTI (urinary tract infection) Status: Resolved (6) Encephalopathy Status: Resolved Assessment and Plan 1. Acute on chronic respiratory failure: Tracheostomy. Pulmonology managing. Status post treatment for pneumonia, right pneumothorax. Continues to have secretions. Continue pulmonary toilet, trach care. Continue bronchodilators. Continue prednisone. 2. 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 He is nonverbal. Not currently on sedation. 3. History of orthostasis: Continue Midodrine. 4. Malnutrition: Tolerating Jevity 1.5 at 60 mL per hour per PEG tube. Continue Prevacid. 5. Hypernatremia: Improved. Free water 300 mils every 8 hours. 6. Sepsis, pneumonia, UTI: Appreciate infectious disease recommendations. MRSA colonization. Watching off antibiotics currently. Diflucan given from 08/17-. Levaquin given from 08/20-08/27/15. Completed course of meropenem on 08/21/15 for Klebsiella ESBL, Pseudomonas pneumonia. Continue Lactinex. 7. Bilateral lower extremity contractures, stage III sacral decubitus ulcer present on admission: Continue wound care, physical therapy. 8. GI prophylaxis: Prevacid. 9. DVT prophylaxis: SCDs, Lovenox. German Bernal MD Oct 05, 2015 13:30
--- NOTE | 2015-10-05 20:20 | RADRPT ---
EXAM DATE/TIME: 10/05/2015 19:56 [facility] COMPARISON: CHEST SINGLE AP, September 27, 2015, 5:19. INDICATIONS : Short of breath, possible aspiration. MEDICAL HISTORY : Hypertension. Cardiovascular disease. Diabetic. SURGICAL HISTORY : Tracheostomy. ENCOUNTER: Subsequent ACUITY: 1 day PAIN SCORE: Non-responsive. LOCATION: Bilateral chest FINDINGS: A single view of the chest demonstrates the lungs to be symmetrically hyperaerated with no acute infi ltrate. Heart size is normal. Tracheostomy tip is appropriately positioned above the kalie. Osseous structures are intact. CONCLUSION: Hyperinflation with no acute cardiopulmonary process. Scott Goode MD on October 05, 2015 at 20:15 Board Certified Radiologist. This report was verified electronically.
[2015-10-05] MEDS: SODIUM CHLOR 0.9% 1000 ML INJ 1,000 ML IV SCH (21:34)
[2015-10-05] MEDS: ENOXAPARIN SODIUM 40 MG/0.4 ML SYRINGE SQ SCH (22:10)
[2015-10-05] MEDS: COLLAGENASE OINT 30 GM TUBE TOP SCH (22:11)
[2015-10-05] MEDS: OLANZapine 5 MG TAB GT SCH (22:11)
[2015-10-06] VITALS (18 sets, daily range): BP systolic 85–124; BP diastolic 58–63; PULSE 55–93; RESP 16–24; TEMP 97.1–97.8; O2SAT 92–100
[2015-10-06] MEDS: INSULIN NovoLIN REGULAR SUPPLEMENTAL SCALE SQ SCH ×4 (02:57→20:08)
[2015-10-06 03:45] LABS: BACTERIA, URINE MANY /hpf; BLOOD, URINE MOD (NEG); GLUCOSE,URINE NEG (NEG); HYALINE CAST, URINE 133 /lpf (RARE); KETONE, URINE NEG (NEG); MUCUS URINE MANY /lpf (OCC); NITRITE,URINE NEG (NEG)
[2015-10-06 03:46] LABS: COMMENT (UR) CATH-CULTURE IND; CULTURE IF INDICATED CATH CULTURE IND; URINE COLOR BROWN (YELLW/STRAW)
[2015-10-06] MEDS: HYOSCYAMINE SOLN 0.125 MG/ML 15 ML BTL PO PRN (04:57)
[2015-10-06] MEDS: clonazePAM 1 MG TAB PO SCH ×3 (05:00→20:07)
[2015-10-06] MEDS: SODIUM CHLOR 0.9% 1000 ML INJ 1,000 ML IV SCH ×2 (05:00→15:30)
[2015-10-06] MEDS: CARBIDOPA/LEVODOPA 25 MG/100 MG TAB GT SCH ×3 (05:00→20:07)
[2015-10-06] MEDS: INSULIN DETEMIR 100 UNITS/ML VIAL SQ SCH ×2 (07:59→20:08)
[2015-10-06] MEDS: REMOVE OLD PATCH TD SCH (08:00)
[2015-10-06] MEDS: CHLORHEXIDINE 0.12% (ORAL KIT) 15 ML CUP MT SCH ×2 (08:00→20:09)
[2015-10-06] MEDS: fentaNYL 50 MCG/HR PATCH TD SCH (08:03)
[2015-10-06] MEDS: PARoxetine HCL 20 MG TAB G-TUBE SCH (08:04)
[2015-10-06] MEDS: GABAPENTIN 300 MG CAP G-TUBE SCH ×2 (08:04→20:07)
[2015-10-06] MEDS: COLLAGENASE OINT 30 GM TUBE TOP SCH (08:04)
[2015-10-06] MEDS: predniSONE 20 MG TAB PO SCH (08:04)
[2015-10-06] MEDS: LANSOPRAZOLE SOLUTAB 30 MG TAB NG SCH (08:04)
[2015-10-06] MEDS: LACTOBACILLUS ACIDOPHILUS TAB PO SCH ×3 (08:04→18:14)
[2015-10-06] MEDS: QUEtiapine FUMARATE 25 MG TAB G-TUBE SCH ×2 (08:06→20:07)
[2015-10-06] MEDS: ARTIFICIAL TEARS OPTH SOLN 15 ML BTL EACH EYE SCH ×3 (08:06→18:00)
[2015-10-06] MEDS: MIDODRINE 5 MG TAB G-TUBE SCH ×2 (08:06→20:07)
[2015-10-06] MEDS: SODIUM CHLORIDE 0.9% FLUSH 5 ML FLUSH IVF SCH ×2 (09:00→20:08)
--- NOTE | 2015-10-06 10:37 | HHI.PR ---
Subjective Remarks Follow-up chronic respiratory failure, UTI. Putnam catheter was changed last night and urine appeared dirty. UA was sent and is abnormal. Tube feeds were held due to high residual. No other events overnight per nursing. Objective Vitals Vital Signs Date Time Temp Pulse Resp B/P Pulse Ox O2 Delivery O2 Flow Rate FiO2 10/06/15 08:29 92 T-piece 7.00 40 10/06/15 08:19 94 60 10/06/15 08:00 70 10/06/15 08:00 97.5 79 17 85/63 97 10/06/15 08:00 93 10/06/15 06:00 80 10/06/15 04:00 70 10/06/15 04:00 97.5 78 24 90/59 98 10/06/15 04:00 98 70 10/06/15 04:00 78 10/06/15 02:00 91 10/06/15 00:07 100 80 10/06/15 00:00 97.8 89 18 103/63 100 10/06/15 00:00 80 10/06/15 00:00 89 10/05/15 22:00 90 10/05/15 20:21 100 100 10/05/15 20:00 93 10/05/15 20:00 100 10/05/15 20:00 97.5 93 14 99/67 100 10/05/15 18:00 78 10/05/15 16:00 98.1 71 16 102/68 98 10/05/15 16:00 30 10/05/15 16:00 78 10/05/15 14:01 78 10/05/15 12:02 97.8 69 16 97/63 98 10/05/15 12:01 78 10/05/15 12:00 30 I/O 10/05/15 10/05/15 10/05/15 10/06/15 10/06/15 10/06/15 07:00 15:00 23:00 07:00 15:00 23:00 Intake Total 475 ml 730 ml 429 ml 804 ml Output Total 300 ml 350 ml 125 ml 425 ml Balance 175 ml 380 ml 304 ml 379 ml Intake Oral 0 ml 0 ml 0 ml 0 ml IV Total 21 ml 20 ml 59 ml 684 ml Tube Feeding 334 ml 560 ml 170 ml 0 ml Other 120 ml 150 ml 200 ml 120 ml Output Urine Total 300 ml 350 ml 125 ml 425 ml # Voids 1 # Bowel Movements 0 0 2 0 Imaging Last Impressions Chest X-Ray 10/05/15 0000 Signed Impressions: Service Date/Time: Monday, October 05, 2015 19:56 - CONCLUSION: Hyperinflation with no acute cardiopulmonary process. Scott Goode MD Abdomen X-Ray 09/21/15 0000 Signed Impressions: Service Date/Time: Monday, September 21, 2015 11:31 - CONCLUSION: Normal bowel gas pattern. Tai Taylor Jr., MD Tunnelled Chest Tube Removal 08/05/15 1100 Signed Impressions: Service Date/Time: Wednesday, August 05, 2015 11:00 - CONCLUSION: Uncomplicated chest tube removal. Blaine Jackson MD Chest Tube Change 07/31/15 0000 Signed Impressions: Service Date/Time: Friday, July 31, 2015 14:34 - CONCLUSION: Uncomplicated reposition of previously placed chest tube as above. Blaine Jackson MD Chest Tube Insertion 07/30/15 0000 Signed Impressions: Service Date/Time: July 14:50 - CONCLUSION: Uncomplicated chest tube placement as above. Blaine Jackson MD Catheter Change 07/27/15 0000 Signed Impressions: Service Date/Time: Monday, July 27, 2015 14:43 - CONCLUSION: Uncomplicated gastrostomy tube exchange as above. Blaine Jackson MD Chest CT 07/11/15 0000 Signed Impressions: Service Date/Time: Saturday, July 11, 2015 09:49 - CONCLUSION: Scattered patchy densities significantly improved from previous study. Tiny anterior right basilar pneumothorax. Right-sided chest tube in good position. Néstor Matamoros MD Head CT 06/18/151902 Signed Impressions: Service Date/Time: June 19:31 - CONCLUSION: Diffuse atrophy unchanged. No acute intracranial findings. Kush Briscoe MD Abdomen/Pelvis CT 06/18/151902 Signed Impressions: Service Date/Time: June 19:36 - CONCLUSION: 1. Chronic nonspecific urinary bladder wall thickening. Bladder collapsed with Putnam catheter in place. 2. Chronic bilateral mid to lower lung zone groundglass opacity. 3. Nonobstructing left renal calculus. 4. Distended rectum. Kush Briscoe MD Objective Remarks General: Thin male in no acute distress. Heart: Regular rate and rhythm. No murmur. Lungs: Coarse breath sounds bilaterally. Breathing is nonlabored. Tracheostomy. Abdomen: Soft, nontender, nondistended. Extremities: No lower extremity edema. Psych: Nonverbal. Does not follow commands. Procedures 07/26- PEG replacement 07/29- right pigtail catheter placement for new pneumothorax Urinary Catheter: Yes Assessment to: Continue Putnam insert reason: Prolonged Immobilization Date of Insertion: Oct 05, 2015 Vascular Central Line Catheter: No A/P Problem List: (1) Sepsis due to urinary tract infection Status: Resolved (2) Acute respiratory failure Status: Resolved (3) Chronic respiratory failure Status: Chronic (4) Parkinson disease Status: Chronic (5) UTI (urinary tract infection) Status: Resolved (6) Encephalopathy Status: Resolved Assessment and Plan 10/06/15 update: Repeat UA from last night shows likely recurrent UTI. Urine culture is pending. Will request infectious disease recommendations regarding need for and choice of antibiotics due to patient's recent history of ESBL positive Klebsiella UTI. 1. Acute on chronic respiratory failure: Tracheostomy. Pulmonology managing. Status post treatment for pneumonia, right pneumothorax. Continues to have secretions. Continue pulmonary toilet, trach care. Continue bronchodilators. Continue prednisone. 2. 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 He is nonverbal. Not currently on sedation. 3. History of orthostasis: Continue Midodrine. 4. Malnutrition: Tolerating Jevity 1.5 at 60 mL per hour per PEG tube. Continue Prevacid. 5. Hypernatremia: Improved. Free water 300 mils every 8 hours. 6. Sepsis, pneumonia, UTI: Appreciate infectious disease recommendations. MRSA colonization. Watching off antibiotics currently. Diflucan given from 08/17-. Levaquin given from 08/20-08/27/15. Completed course of meropenem on 08/21/15 for Klebsiella ESBL, Pseudomonas pneumonia. Continue Lactinex. 7. Bilateral lower extremity contractures, stage III sacral decubitus ulcer present on admission: Continue wound care, physical therapy. 8. GI prophylaxis: Prevacid. 9. DVT prophylaxis: SCDs, Lovenox. German Bernal MD Oct 06, 2015 10:36
--- NOTE | 2015-10-06 13:17 | HHI.IDPN ---
Subjective Subjective Remarks ID COVERAGE Chart reviewed. Mr. Foreman is a 54-year-old male with past medical history significant for Parkinson's disease, advanced dementia, history of ESBL UTI. Patient also has had pseudomonas and Kleb ESBL in the sputum felt to be a tracheobronchitis Last urine culture from September is staying with pseudomonas Patient has completed a course of meropenem and finished it October 02 He remains afebrile WBC is normal He has a trach, currently on T piece. Secretions look like whitish in the tubing Currently not tolerating his tube feedings, and on hold Chest x-ray have been normal. Valdez catheter was changed yesterday due to turbidity of the urine. Currently his urine looks clear with some sediment Urinalysis showing significant pyuria and bacteriuria, urine culture is still pending Antibiotics None Lines Peripheral IV with no e/o infection Past Medical History reviewed Allergies: Coded Allergies: *MDRO Multi-Drug Resistant Organism (Verified Adverse Reaction, Unknown, ) ESBL E. coli (urine) - 02/19/2015; ESBL K. pneumoniae (sputum) - 06/18/15, (urine) - 08/03/15,(sputum) - 08/03/15, (sputum) - 09/20/15 MRSA PCR POSITIVE - 03/20/2015 MDR-Pseudomonas (sputum)- 08/18/15, 09/20/15 Objective . Vital Signs Date Time Temp Pulse Resp B/P Pulse Ox O2 Delivery O2 Flow Rate FiO2 10/06/15 08:29 92 T-piece 7.00 40 10/06/15 08:19 94 60 10/06/15 08:00 70 10/06/15 08:00 97.5 79 17 85/63 97 10/06/15 08:00 93 10/06/15 06:00 80 10/06/15 04:00 70 10/06/15 04:00 97.5 78 24 90/59 98 10/06/15 04:00 98 70 10/06/15 04:00 78 10/06/15 02:00 91 10/06/15 00:07 100 80 10/06/15 00:00 97.8 89 18 103/63 100 10/06/15 00:00 80 10/06/15 00:00 89 10/05/15 22:00 90 10/05/15 20:21 100 100 10/05/15 20:00 93 10/05/15 20:00 100 10/05/15 20:00 97.5 93 14 99/67 100 10/05/15 18:00 78 10/05/15 16:00 98.1 71 16 102/68 98 10/05/15 16:00 30 10/05/15 16:00 78 10/05/15 14:01 78 10/05/15 10/05/15 10/06/15 15:00 23:00 07:00 Intake Total 730 ml 429 ml 804 ml Output Total 350 ml 125 ml 425 ml Balance 380 ml 304 ml 379 ml Intake Oral 0 ml 0 ml 0 ml IV Total 20 ml 59 ml 684 ml Tube Feeding 560 ml 170 ml 0 ml Other 150 ml 200 ml 120 ml Output Urine Total 350 ml 125 ml 425 ml # Voids 1 # Bowel Movements 0 2 0 . Microbiology Date/Time Procedure Status Source Growth 10/06/15 02:00 Urine Culture Received Urine Catheterized Urine Pending Imaging Chest X-Ray 10/05/15 0000 Signed Impressions: Service Date/Time: Monday, October 05, 2015 19:56 - CONCLUSION: Hyperinflation with no acute cardiopulmonary process. Scott Goode MD Chest X-Ray 09/25/15 0000 Signed Impressions: Service Date/Time: Friday, September 25, 2015 09:28 - CONCLUSION: No acute disease. Tai Taylor Jr., MD Abdomen X-Ray 09/21/15 0000 Signed Impressions: Service Date/Time: Monday, September 21, 2015 11:31 - CONCLUSION: Normal bowel gas pattern. Tai Taylor Jr., MD Tunnelled Chest Tube Removal 08/05/15 1100 Signed Impressions: Service Date/Time: Wednesday, August 05, 2015 11:00 - CONCLUSION: Uncomplicated chest tube removal. Blaine Jackson MD Chest Tube Change 07/31/15 0000 Signed Impressions: Service Date/Time: Friday, July 31, 2015 14:34 - CONCLUSION: Uncomplicated reposition of previously placed chest tube as above. Blaine Jackson MD Chest Tube Insertion 07/30/15 0000 Signed Impressions: Service Date/Time: July 14:50 - CONCLUSION: Uncomplicated chest tube placement as above. Blaine Jackson MD Catheter Change 07/27/15 Signed Impressions: Service Date/Time: Monday, July 27, 2015 14:43 - CONCLUSION: Uncomplicated gastrostomy tube exchange as above. Blaine Jackson MD Chest CT 07/11/15 Signed Impressions: Service Date/Time: Saturday, July 11, 2015 09:49 - CONCLUSION: Scattered patchy densities significantly improved from previous study. Tiny anterior right basilar pneumothorax. Right-sided chest tube in good position. Néstor Matamoros MD Head CT 06/18/151902 Signed Impressions: Service Date/Time: , June 18, 2015 19:31 - CONCLUSION: Diffuse atrophy unchanged. No acute intracranial findings. Kush Briscoe MD Abdomen/Pelvis CT 06/18/151902 Signed Impressions: Service Date/Time: June 19:36 - CONCLUSION: 1. Chronic nonspecific urinary bladder wall thickening. Bladder collapsed with Valdez catheter in place. 2. Chronic bilateral mid to lower lung zone groundglass opacity. 3. Nonobstructing left renal calculus. 4. Distended rectum. Kush Briscoe MD Physical Exam GENERAL: Patient is a thin, well-developed male, eyes closed, on T piece, NAD. SKIN: No generalized rash. Cool and dry. HEENT: [place] conjunctivae, no icterus, moist mucosa NECK: Trach site looks ok. CARDIOVASCULAR: No murmur appreciated. RESPIRATORY: Coarse breath sounds bilaterally, decreased at the bases. GASTROINTESTINAL: Abdomen soft, non-tender, not distended. No hepatosplenomegaly PEG tube site clean, no evidence of infection. MUSCULOSKELETAL: No cyanosis No pedal edema. Contracted all 4 extremeties. NEUROLOGICAL: Keeping his eyes closed, contractures of the extremities, no interaction. Peripheral IV line sites with no evidence of infection. ; Valdez in place, urine looks clear, with some mild sediment. Assessment & Plan Remarks PSAE ESBL cath associated UTI. S/P Rx Leukocytosis, resolved Chronic respiratory failure was on trach - Tracheobronchitis with purulent secretions - growing PSAE and ESBL Kleb in spuutum though CXR is negative - tolerating T-piece Chronic encephalopathy with underlying diagnosis of advanced dementia as well as advanced Parkinson's disease. Abnormal UA, S/P valdez change 10/04 Status post trach Status post gastrostomy tube with no evidence of infection. Stage II sacral decubitus ulcer present on admission. Recommendations Repeat UA Follow C/S Will not start any new Abx at this time Check renal US, to check any structural abnormality, but most likely recurrent UTI due to valdez D/W Bhavna Piedra MD Oct 06, 2015 13:17
[2015-10-06 18:25] LABS: BACTERIA, URINE OCC /hpf; BLOOD, URINE MOD (NEG); CALCIUM OXALATE CRYSTALS,URINE RARE /hpf; GLUCOSE,URINE NEG (NEG); HYALINE CAST, URINE 1 /lpf (RARE); KETONE, URINE NEG (NEG); MUCUS URINE FEW /lpf (OCC); NITRITE,URINE NEG (NEG); PH, URINE 6.5 (5.0-8.5); SQUAMOUS EPITHELIAL CELL URINE <1 /hpf (0-5); URINE COLOR YELLOW (YELLW/STRAW)
[2015-10-06] MEDS: OLANZapine 5 MG TAB GT SCH (20:07)
[2015-10-06] MEDS: ENOXAPARIN SODIUM 40 MG/0.4 ML SYRINGE SQ SCH (20:07)
[2015-10-07] VITALS (16 sets, daily range): BP systolic 82–104; BP diastolic 55–65; PULSE 59–90; RESP 14–20; TEMP 97–97.6; O2SAT 94–100
[2015-10-07] MEDS: SODIUM CHLOR 0.9% 1000 ML INJ 1,000 ML IV SCH ×3 (00:27→20:44)
[2015-10-07] MEDS: INSULIN NovoLIN REGULAR SUPPLEMENTAL SCALE SQ SCH ×4 (02:40→20:45)
[2015-10-07] MEDS ORDERED: SODIUM CHLORID 0.9% 500 ML INJ 500 ML IV ONE ×2 (03:00→06:00)
[2015-10-07] MEDS: CARBIDOPA/LEVODOPA 25 MG/100 MG TAB GT SCH ×3 (05:51→20:44)
[2015-10-07] MEDS: clonazePAM 1 MG TAB PO SCH ×3 (05:51→20:44)
[2015-10-07 06:40] LABS: HEMATOCRIT 26.7 % (39.0-51.0); MEAN CELL VOLUME 83.6 FL (80.0-100.0); MEAN CORPUSCULAR HEMOGLOBIN 26.4 PG (27.0-34.0); MEAN CORPUSCULAR HGB CONC 31.6 % (32.0-36.0); PLATELET COUNT 151 TH/MM3 (150-450); RED CELL DISTRIBUTION WIDTH 17.3 % (11.6-17.2); REVIEW FLAG FINAL; WHITE BLOOD COUNT 12.8 TH/MM3 (4.0-11.0)
[2015-10-07 06:57] LABS: BICARBONATE 33.5 MEQ/L (21.0-32.0); POTASSIUM 4.3 MEQ/L (3.5-5.1)
--- NOTE | 2015-10-07 08:29 | HHI.PR ---
Subjective Remarks Follow up UTI, respiratory failure. Patient did have low blood pressure overnight and was given a fluid bolus. Has been stable since per nursing. No change neurologically. Objective Vitals Vital Signs Date Time Temp Pulse Resp B/P Pulse Ox O2 Delivery O2 Flow Rate FiO2 10/07/15 06:00 65 10/07/15 04:07 100 55 10/07/15 04:00 59 10/07/15 04:00 97.1 59 14 86/58 100 10/07/15 04:00 55 10/07/15 02:00 59 10/07/15 01:24 97 55 10/07/15 00:00 62 10/07/15 00:00 55 10/07/15 00:00 97.1 62 14 82/55 99 10/06/15 23:19 98 55 10/06/15 22:00 65 10/06/15 20:04 100 55 10/06/15 20:00 55 10/06/15 20:00 60 10/06/15 20:00 97.1 60 16 85/58 100 10/06/15 18:55 96 60 10/06/15 18:00 55 10/06/15 16:00 70 10/06/15 16:00 93 10/06/15 16:00 97.8 71 16 124/63 97 10/06/15 14:00 93 10/06/15 12:00 93 10/06/15 12:00 70 10/06/15 12:00 97.8 71 17 120/63 97 10/06/15 10:00 93 10/06/15 08:29 92 T-piece 7.00 40 I/O 10/06/15 10/06/15 10/06/15 10/07/15 10/07/15 10/07/15 07:00 15:00 23:00 07:00 15:00 23:00 Intake Total 804 ml 751 ml 1037 ml Output Total 425 ml 700 ml 350 ml Balance 379 ml 51 ml 687 ml Intake Oral 0 ml 0 ml 0 ml IV Total 684 ml 631 ml 1037 ml Tube Feeding 0 ml 0 ml 0 ml Other 120 ml 120 ml Output Urine Total 425 ml 700 ml 350 ml # Bowel Movements 0 1 1 Result Diagram: 10/07/15 0617 10/07/15 0617 Imaging Last Impressions Chest X-Ray 10/05/15 0000 Signed Impressions: Service Date/Time: Monday, October 05, 2015 19:56 - CONCLUSION: Hyperinflation with no acute cardiopulmonary process. Scott Goode MD Abdomen X-Ray 09/21/15 0000 Signed Impressions: Service Date/Time: Monday, September 21, 2015 11:31 - CONCLUSION: Normal bowel gas pattern. Tai Taylor Jr., MD Tunnelled Chest Tube Removal 08/05/15 1100 Signed Impressions: Service Date/Time: Wednesday, August 05, 2015 11:00 - CONCLUSION: Uncomplicated chest tube removal. Blaine Jackson MD Chest Tube Change 07/31/15 0000 Signed Impressions: Service Date/Time: Friday, July 31, 2015 14:34 - CONCLUSION: Uncomplicated reposition of previously placed chest tube as above. Blaine Jackson MD Chest Tube Insertion 07/30/15 0000 Signed Impressions: Service Date/Time: July 14:50 - CONCLUSION: Uncomplicated chest tube placement as above. Blaine Jackson MD Catheter Change 07/27/15 0000 Signed Impressions: Service Date/Time: Monday, July 27, 2015 14:43 - CONCLUSION: Uncomplicated gastrostomy tube exchange as above. Blaine Jackson MD Chest CT 07/11/15 0000 Signed Impressions: Service Date/Time: Saturday, July 11, 2015 09:49 - CONCLUSION: Scattered patchy densities significantly improved from previous study. Tiny anterior right basilar pneumothorax. Right-sided chest tube in good position. Néstor Matamoros MD Head CT 06/18/151902 Signed Impressions: Service Date/Time: June 19:31 - CONCLUSION: Diffuse atrophy unchanged. No acute intracranial findings. Kush Briscoe MD Abdomen/Pelvis CT 06/18/151902 Signed Impressions: Service Date/Time: June 19:36 - CONCLUSION: 1. Chronic nonspecific urinary bladder wall thickening. Bladder collapsed with Putnam catheter in place. 2. Chronic bilateral mid to lower lung zone groundglass opacity. 3. Nonobstructing left renal calculus. 4. Distended rectum. Kush Briscoe MD Objective Remarks General: Thin male in no acute distress. Heart: Regular rate and rhythm. No murmur. Lungs: Coarse breath sounds bilaterally. Breathing is nonlabored. Tracheostomy. Abdomen: Soft, nontender, nondistended. Extremities: No lower extremity edema. Psych: Nonverbal. Does not follow commands. Procedures 07/26- PEG replacement 07/29- right pigtail catheter placement for new pneumothorax Urinary Catheter: Yes Assessment to: Continue Date of Insertion: Oct 05, 2015 Vascular Central Line Catheter: No A/P Problem List: (1) Sepsis due to urinary tract infection Status: Resolved (2) Acute respiratory failure Status: Resolved (3) Chronic respiratory failure Status: Chronic (4) Parkinson disease Status: Chronic (5) UTI (urinary tract infection) Status: Resolved (6) Encephalopathy Status: Resolved Assessment and Plan 10/07/15 update: Repeat UA shows likely recurrent UTI. Urine culture growing Klebsiella. Appreciate infectious disease recommendations. No new antibiotics at this time. Was given fluid bolus overnight for low blood pressure. 1. Acute on chronic respiratory failure: Tracheostomy. Pulmonology managing. Status post treatment for pneumonia, right pneumothorax. Continues to have secretions. Continue pulmonary toilet, trach care. Continue bronchodilators. Continue prednisone. 2. 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 He is nonverbal. Not currently on sedation. 3. History of orthostasis: Continue Midodrine. 4. Malnutrition: Tolerating Jevity 1.5 at 60 mL per hour per PEG tube. Continue Prevacid. 5. Hypernatremia: Improved. Free water 300 mils every 8 hours. 6. Sepsis, pneumonia, UTI: Appreciate infectious disease recommendations. MRSA colonization. Watching off antibiotics currently. Diflucan given from 08/17-. Levaquin given from 08/20-08/27/15. Completed course of meropenem on 08/21/15 for Klebsiella ESBL, Pseudomonas pneumonia. Continue Lactinex. 7. Bilateral lower extremity contractures, sacral decubitus ulcer present on admission: Continue wound care, physical therapy. 8. GI prophylaxis: Prevacid. 9. DVT prophylaxis: SCDs, Lovenox. German Bernal MD Oct 07, 2015 08:29
[2015-10-07] MEDS: LANSOPRAZOLE SOLUTAB 30 MG TAB NG SCH (08:45)
[2015-10-07] MEDS: MIDODRINE 5 MG TAB G-TUBE SCH ×2 (08:45→20:44)
[2015-10-07] MEDS: predniSONE 20 MG TAB PO SCH (08:45)
[2015-10-07] MEDS: QUEtiapine FUMARATE 25 MG TAB G-TUBE SCH ×2 (08:45→20:43)
[2015-10-07] MEDS: PARoxetine HCL 20 MG TAB G-TUBE SCH (08:45)
[2015-10-07] MEDS: SODIUM CHLORIDE 0.9% FLUSH 5 ML FLUSH IVF SCH ×2 (08:46→20:45)
[2015-10-07] MEDS: CHLORHEXIDINE 0.12% (ORAL KIT) 15 ML CUP MT SCH ×2 (08:46→20:00)
[2015-10-07] MEDS: GABAPENTIN 300 MG CAP G-TUBE SCH ×2 (08:47→20:44)
[2015-10-07] MEDS: ARTIFICIAL TEARS OPTH SOLN 15 ML BTL EACH EYE SCH ×3 (08:47→18:00)
[2015-10-07] MEDS: LACTOBACILLUS ACIDOPHILUS TAB PO SCH ×3 (08:52→18:00)
[2015-10-07] MEDS: INSULIN DETEMIR 100 UNITS/ML VIAL SQ SCH ×2 (08:52→20:43)
[2015-10-07] MEDS: COLLAGENASE OINT 30 GM TUBE TOP SCH (08:53)
--- NOTE | 2015-10-07 19:27 | RADRPT ---
EXAM DATE/TIME: 10/07/2015 18:29 [facility] COMPARISON: No previous studies available for comparison. INDICATIONS : Recurrent UTI. MEDICAL HISTORY : Parkinson's disease. dementia. anxiety. gerd. SURGICAL HISTORY : PEG tube. Left hip repair. Tracheostomy. ENCOUNTER: Initial ACUITY: 1 day PAIN SCORE: Nonresponsive. LOCATION: Bilateral flank MEASUREMENTS: RIGHT KIDNEY: 10.7 x 4.1 x 5.7 cm LEFT KIDNEY: 10.4 x 5.6 x 5.4 cm FINDINGS: 3.6 cm cyst present left kidney. No hydronephrosis. No perinephric fluid. Bladder decompressed around Putnam. CONCLUSION: 1. No acute findings. 3.6 cm left renal cyst. Putnam catheter in bladder. Amaury Ellsworth MD on October 07, 2015 at 19:23 Board Certified Radiologist. This report was verified electronically.
[2015-10-07] MEDS: LORazepam 2 MG/ML VIAL IVP PRN (20:43)
[2015-10-07] MEDS: ENOXAPARIN SODIUM 40 MG/0.4 ML SYRINGE SQ SCH (20:44)
[2015-10-07] MEDS: OLANZapine 5 MG TAB GT SCH (20:45)
[2015-10-08] VITALS (14 sets, daily range): BP systolic 94–127; BP diastolic 58–79; PULSE 59–91; RESP 14–18; TEMP 96–97.9; O2SAT 92–99
[2015-10-08] MEDS: INSULIN NovoLIN REGULAR SUPPLEMENTAL SCALE SQ SCH ×4 (03:00→22:32)
[2015-10-08] MEDS: clonazePAM 1 MG TAB PO SCH ×3 (04:46→22:31)
[2015-10-08] MEDS: SODIUM CHLOR 0.9% 1000 ML INJ 1,000 ML IV SCH ×3 (04:46→22:32)
[2015-10-08] MEDS: CARBIDOPA/LEVODOPA 25 MG/100 MG TAB GT SCH ×3 (04:46→22:31)
--- NOTE | 2015-10-08 08:10 | HHI.PR ---
Subjective Remarks Follow up UTI, respiratory failure. No events overnight per nursing. Patient still does not track or follow commands. Objective Vitals Vital Signs Date Time Temp Pulse Resp B/P Pulse Ox O2 Delivery O2 Flow Rate FiO2 10/08/15 04:00 55 10/08/15 04:00 97.9 74 18 98/62 98 10/08/15 04:00 74 10/08/15 03:50 99 50 10/08/15 01:11 99 50 10/08/15 00:00 97.9 91 18 95/66 97 10/08/15 00:00 55 10/08/15 00:00 91 10/07/15 22:24 94 50 10/07/15 20:15 95 50 10/07/15 20:00 90 10/07/15 20:00 55 10/07/15 20:00 97.4 90 18 101/65 97 10/07/15 18:00 66 10/07/15 16:00 97.0 80 14 89/56 100 10/07/15 16:00 55 10/07/15 16:00 66 10/07/15 14:00 68 10/07/15 14:00 65 10/07/15 12:00 55 10/07/15 12:00 68 10/07/15 12:00 97.6 100 10/07/15 10:20 99 T-piece 40.00 10/07/15 10:00 60 I/O 10/07/15 10/07/15 10/07/15 10/08/15 10/08/15 10/08/15 07:00 15:00 23:00 07:00 15:00 23:00 Intake Total 1037 ml 1227 ml 350 ml 732 ml Output Total 350 ml 400 ml 650 ml 550 ml Balance 687 ml 827 ml -300 ml 182 ml Intake Oral 0 ml 0 ml IV Total 1037 ml 1227 ml 350 ml 650 ml Tube Feeding 0 ml 0 ml 82 ml Output Urine Total 350 ml 400 ml 650 ml 550 ml # Bowel Movements 1 0 Result Diagram: 10/07/15 0617 10/07/15 0617 Imaging Last Impressions Renal Ultrasound 10/07/15 0000 Signed Impressions: Service Date/Time: Wednesday, October 07, 2015 18:29 - CONCLUSION: 1. No acute findings. 3.6 cm left renal cyst. Putnam catheter in bladder. Amaury Ellsworth MD Chest X-Ray 10/05/15 0000 Signed Impressions: Service Date/Time: Monday, October 05, 2015 19:56 - CONCLUSION: Hyperinflation with no acute cardiopulmonary process. Scott Goode MD Abdomen X-Ray 09/21/15 0000 Signed Impressions: Service Date/Time: Monday, September 21, 2015 11:31 - CONCLUSION: Normal bowel gas pattern. Tai Taylor Jr., MD Tunnelled Chest Tube Removal 08/05/15 1100 Signed Impressions: Service Date/Time: Wednesday, August 05, 2015 11:00 - CONCLUSION: Uncomplicated chest tube removal. Blaine Jackson MD Chest Tube Change 07/31/15 0000 Signed Impressions: Service Date/Time: Friday, July 31, 2015 14:34 - CONCLUSION: Uncomplicated reposition of previously placed chest tube as above. Blaine Jackson MD Chest Tube Insertion 07/30/15 0000 Signed Impressions: Service Date/Time: July 14:50 - CONCLUSION: Uncomplicated chest tube placement as above. Blaine Jackson MD Catheter Change 07/27/15 Signed Impressions: Service Date/Time: Monday, July 27, 2015 14:43 - CONCLUSION: Uncomplicated gastrostomy tube exchange as above. Blaine Jackson MD Chest CT 07/11/15 Signed Impressions: Service Date/Time: Saturday, July 11, 2015 09:49 - CONCLUSION: Scattered patchy densities significantly improved from previous study. Tiny anterior right basilar pneumothorax. Right-sided chest tube in good position. Néstor Matamoros MD Head CT 06/18/151902 Signed Impressions: Service Date/Time: June 19:31 - CONCLUSION: Diffuse atrophy unchanged. No acute intracranial findings. Kush Briscoe MD Abdomen/Pelvis CT 06/18/151902 Signed Impressions: Service Date/Time: June 19:36 - CONCLUSION: 1. Chronic nonspecific urinary bladder wall thickening. Bladder collapsed with Putnam catheter in place. 2. Chronic bilateral mid to lower lung zone groundglass opacity. 3. Nonobstructing left renal calculus. 4. Distended rectum. Kush Briscoe MD Objective Remarks General: Thin male in no acute distress. Heart: Regular rate and rhythm. No murmur. Lungs: Coarse breath sounds bilaterally. Breathing is nonlabored. Tracheostomy. Abdomen: Soft, nontender, nondistended. Extremities: No lower extremity edema. Psych: Nonverbal. Neuro: Does not follow commands. Does not track. Procedures 07/26- PEG replacement 07/29- right pigtail catheter placement for new pneumothorax Urinary Catheter: Yes Assessment to: Continue Putnam insert reason: Prolonged Immobilization Date of Insertion: Oct 05, 2015 Vascular Central Line Catheter: No A/P Problem List: (1) Sepsis due to urinary tract infection Status: Resolved (2) Acute respiratory failure Status: Resolved (3) Chronic respiratory failure Status: Chronic (4) Parkinson disease Status: Chronic (5) UTI (urinary tract infection) Status: Resolved (6) Encephalopathy Status: Resolved Assessment and Plan 10/08/15 update: Labs are pending today. Stop IV fluids. No events reported overnight. 1. Acute on chronic respiratory failure: Tracheostomy. Pulmonology managing. Status post treatment for pneumonia, right pneumothorax. Continues to have secretions. Continue pulmonary toilet, trach care. Continue bronchodilators. Continue prednisone. 2. 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 He is nonverbal. Not currently on sedation. 3. History of orthostasis: Continue Midodrine. 4. Malnutrition: Tolerating Jevity 1.5 at 60 mL per hour per PEG tube. Continue Prevacid. 5. Hypernatremia: Improved. Free water 300 mils every 8 hours. 6. Sepsis, pneumonia, UTI: Appreciate infectious disease recommendations. MRSA colonization. Watching off antibiotics currently. Diflucan given from 08/17-. Levaquin given from 08/20-08/27/15. Completed course of meropenem on 08/21/15 for Klebsiella ESBL, Pseudomonas pneumonia. Continue Lactinex. 7. Bilateral lower extremity contractures, sacral decubitus ulcer present on admission: Continue wound care, physical therapy. 8. GI prophylaxis: Prevacid. 9. DVT prophylaxis: SCDs, Lovenox. Discharge Planning Transfer to med/surg. German Bernal MD Oct 08, 2015 08:10
[2015-10-08 08:19] LABS: AUTOMATED NEUTROPHIL # 8.1 TH/MM3 (1.8-7.7); BASOPHIL % 0.1 % (0.0-2.0); EOSINOPHIL # 0.2 TH/MM3 (0-0.4); HEMATOCRIT 27.7 % (39.0-51.0); HEMO FLAGS DIFF FINAL; LYMPH % 9.1 % (9.0-44.0); LYMPHOCYTE # 0.9 TH/MM3 (1.0-4.8); MEAN CELL VOLUME 83.2 FL (80.0-100.0); MEAN CORPUSCULAR HEMOGLOBIN 26.8 PG (27.0-34.0); MEAN CORPUSCULAR HGB CONC 32.2 % (32.0-36.0); MONO % 4.9 % (0.0-8.0); NEUT % 83.9 % (16.0-70.0); PLATELET COUNT 145 TH/MM3 (150-450); RED BLOOD COUNT 3.33 MIL/MM3 (4.50-5.90); RED CELL DISTRIBUTION WIDTH 17.3 % (11.6-17.2); WHITE BLOOD COUNT 9.6 TH/MM3 (4.0-11.0)
[2015-10-08] MEDS: CHLORHEXIDINE 0.12% (ORAL KIT) 15 ML CUP MT SCH ×2 (08:37→20:00)
[2015-10-08] MEDS: ARTIFICIAL TEARS OPTH SOLN 15 ML BTL EACH EYE SCH ×3 (08:39→17:06)
[2015-10-08] MEDS: predniSONE 20 MG TAB PO SCH (08:40)
[2015-10-08] MEDS: LACTOBACILLUS ACIDOPHILUS TAB PO SCH ×3 (08:40→17:04)
[2015-10-08] MEDS: SODIUM CHLORIDE 0.9% FLUSH 5 ML FLUSH IVF SCH ×2 (08:40→22:33)
[2015-10-08] MEDS: LANSOPRAZOLE SOLUTAB 30 MG TAB NG SCH (08:40)
[2015-10-08] MEDS: GABAPENTIN 300 MG CAP G-TUBE SCH ×2 (08:40→22:31)
[2015-10-08] MEDS: QUEtiapine FUMARATE 25 MG TAB G-TUBE SCH ×2 (08:40→22:31)
[2015-10-08] MEDS: PARoxetine HCL 20 MG TAB G-TUBE SCH (08:40)
[2015-10-08] MEDS: MIDODRINE 5 MG TAB G-TUBE SCH ×2 (08:40→22:32)
[2015-10-08] MEDS: COLLAGENASE OINT 30 GM TUBE TOP SCH (08:41)
[2015-10-08] MEDS: INSULIN DETEMIR 100 UNITS/ML VIAL SQ SCH ×2 (08:41→22:33)
[2015-10-08] MEDS: OLANZapine 5 MG TAB GT SCH (22:32)
[2015-10-08] MEDS: ENOXAPARIN SODIUM 40 MG/0.4 ML SYRINGE SQ SCH (22:32)
[2015-10-09] VITALS (12 sets, daily range): BP systolic 84–157; BP diastolic 58–95; PULSE 67–104; RESP 16–22; TEMP 95.9–97.1; O2SAT 95–100
[2015-10-09] MEDS: INSULIN NovoLIN REGULAR SUPPLEMENTAL SCALE SQ SCH ×4 (03:00→21:00)
[2015-10-09] MEDS: clonazePAM 1 MG TAB PO SCH ×3 (05:54→23:38)
[2015-10-09] MEDS: CARBIDOPA/LEVODOPA 25 MG/100 MG TAB GT SCH ×3 (05:54→23:37)
[2015-10-09 07:05] LABS: BICARBONATE 32.9 MEQ/L (21.0-32.0); POTASSIUM 3.6 MEQ/L (3.5-5.1)
[2015-10-09 07:17] LABS: AUTOMATED NEUTROPHIL # 6.8 TH/MM3 (1.8-7.7); BASOPHIL % 0.2 % (0.0-2.0); EOSINOPHIL # 0.1 TH/MM3 (0-0.4); EOSINOPHIL % 1.4 % (0.0-4.0); HEMATOCRIT 31.3 % (39.0-51.0); HEMO FLAGS DIFF FINAL; LYMPH % 12.2 % (9.0-44.0); MEAN CELL VOLUME 81.8 FL (80.0-100.0); MEAN CORPUSCULAR HEMOGLOBIN 26.4 PG (27.0-34.0); MEAN CORPUSCULAR HGB CONC 32.3 % (32.0-36.0); MONO % 4.9 % (0.0-8.0); NEUT % 81.3 % (16.0-70.0); PLATELET COUNT 148 TH/MM3 (150-450); RED BLOOD COUNT 3.83 MIL/MM3 (4.50-5.90); RED CELL DISTRIBUTION WIDTH 17.4 % (11.6-17.2); WHITE BLOOD COUNT 8.4 TH/MM3 (4.0-11.0)
[2015-10-09] MEDS: REMOVE OLD PATCH TD SCH (08:00)
[2015-10-09] MEDS: MIDODRINE 5 MG TAB G-TUBE SCH ×2 (08:32→23:36)
[2015-10-09] MEDS: GABAPENTIN 300 MG CAP G-TUBE SCH ×2 (08:32→23:37)
[2015-10-09] MEDS: fentaNYL 50 MCG/HR PATCH TD SCH (08:32)
[2015-10-09] MEDS: QUEtiapine FUMARATE 25 MG TAB G-TUBE SCH ×2 (08:32→23:37)
[2015-10-09] MEDS: INSULIN DETEMIR 100 UNITS/ML VIAL SQ SCH ×2 (08:32→23:38)
[2015-10-09] MEDS: predniSONE 20 MG TAB PO SCH (08:32)
[2015-10-09] MEDS: LACTOBACILLUS ACIDOPHILUS TAB PO SCH ×3 (08:32→19:01)
[2015-10-09] MEDS: LANSOPRAZOLE SOLUTAB 30 MG TAB NG SCH (08:32)
[2015-10-09] MEDS: SODIUM CHLORIDE 0.9% FLUSH 5 ML FLUSH IVF SCH ×2 (08:33→23:39)
[2015-10-09] MEDS: SODIUM CHLOR 0.9% 1000 ML INJ 1,000 ML IV SCH (08:33)
[2015-10-09] MEDS: COLLAGENASE OINT 30 GM TUBE TOP SCH (08:33)
[2015-10-09] MEDS: ARTIFICIAL TEARS OPTH SOLN 15 ML BTL EACH EYE SCH ×3 (08:33→19:02)
[2015-10-09] MEDS: PARoxetine HCL 20 MG TAB G-TUBE SCH (08:33)
[2015-10-09] MEDS: CHLORHEXIDINE 0.12% (ORAL KIT) 15 ML CUP MT SCH ×2 (08:35→23:39)
--- NOTE | 2015-10-09 10:44 | HHI.PR ---
Subjective Remarks Follow up respiratory failure, hypotension. No change per nursing. Patient still does not track or follow commands. Objective Vitals Vital Signs Date Time Temp Pulse Resp B/P Pulse Ox O2 Delivery O2 Flow Rate FiO2 10/09/15 08:00 96.1 90 22 84/58 96 10/09/15 04:20 96 50 10/09/15 04:00 95.9 80 19 96/65 96 10/09/15 01:15 96 50 10/09/15 00:00 96.7 104 18 101/59 96 10/08/15 21:16 96 50 10/08/15 21:15 96 T-piece 50 10/08/15 20:00 59 10/08/15 20:00 97.8 69 18 101/59 96 10/08/15 16:00 96.0 64 16 127/79 99 10/08/15 12:15 73 10/08/15 12:00 97.4 77 14 94/58 92 10/08/15 11:26 92 T-piece 50 10/08/15 11:00 97.4 76 14 96/61 92 I/O 10/08/15 10/08/15 10/08/15 10/09/15 10/09/15 10/09/15 07:00 15:00 23:00 07:00 15:00 23:00 Intake Total 732 ml 0 ml 273 ml 0 ml Output Total 550 ml 1300 ml 500 ml 250 ml Balance 182 ml -1300 ml -227 ml -250 ml Intake Oral 0 ml 0 ml 0 ml IV Total 650 ml 0 ml Tube Feeding 82 ml 0 ml 273 ml Output Urine Total 550 ml 1300 ml 500 ml 250 ml # Bowel Movements 0 0 0 Result Diagram: 10/09/15 0557 10/09/15 0557 Imaging Last Impressions Renal Ultrasound 10/07/15 0000 Signed Impressions: Service Date/Time: Wednesday, October 07, 2015 18:29 - CONCLUSION: 1. No acute findings. 3.6 cm left renal cyst. Putnam catheter in bladder. Amaury Ellsworth MD Chest X-Ray 10/05/15 0000 Signed Impressions: Service Date/Time: Monday, October 05, 2015 19:56 - CONCLUSION: Hyperinflation with no acute cardiopulmonary process. Scott Goode MD Abdomen X-Ray 09/21/15 0000 Signed Impressions: Service Date/Time: Monday, September 21, 2015 11:31 - CONCLUSION: Normal bowel gas pattern. Tai Taylor Jr., MD Tunnelled Chest Tube Removal 08/05/15 1100 Signed Impressions: Service Date/Time: Wednesday, August 05, 2015 11:00 - CONCLUSION: Uncomplicated chest tube removal. Blaine Jackson MD Chest Tube Change 07/31/15 0000 Signed Impressions: Service Date/Time: Friday, July 31, 2015 14:34 - CONCLUSION: Uncomplicated reposition of previously placed chest tube as above. Blaine Jackson MD Chest Tube Insertion 07/30/15 0000 Signed Impressions: Service Date/Time: July 14:50 - CONCLUSION: Uncomplicated chest tube placement as above. Blaine Jackson MD Catheter Change 07/27/15 0000 Signed Impressions: Service Date/Time: Monday, July 27, 2015 14:43 - CONCLUSION: Uncomplicated gastrostomy tube exchange as above. Blaine Jackson MD Chest CT 07/11/15 0000 Signed Impressions: Service Date/Time: Saturday, July 11, 2015 09:49 - CONCLUSION: Scattered patchy densities significantly improved from previous study. Tiny anterior right basilar pneumothorax. Right-sided chest tube in good position. Néstor Matamoros MD Head CT 06/18/151902 Signed Impressions: Service Date/Time: June 19:31 - CONCLUSION: Diffuse atrophy unchanged. No acute intracranial findings. Kush Briscoe MD Abdomen/Pelvis CT 06/18/151902 Signed Impressions: Service Date/Time: June 19:36 - CONCLUSION: 1. Chronic nonspecific urinary bladder wall thickening. Bladder collapsed with Putnam catheter in place. 2. Chronic bilateral mid to lower lung zone groundglass opacity. 3. Nonobstructing left renal calculus. 4. Distended rectum. Kush Briscoe MD Objective Remarks General: Thin male in no acute distress. Heart: Regular rate and rhythm. No murmur. Lungs: Coarse breath sounds bilaterally. Breathing is nonlabored. Tracheostomy. Abdomen: Soft, nontender, nondistended. Extremities: No lower extremity edema. Psych: Nonverbal. Neuro: Does not follow commands. Does not track. Procedures 07/26- PEG replacement 6/23- right pigtail catheter placement for new pneumothorax Urinary Catheter: Yes Assessment to: Continue Putnam insert reason: Obstruction/Retention Date of Insertion: Oct 05, 2015 Vascular Central Line Catheter: No A/P Problem List: (1) Sepsis due to urinary tract infection Status: Resolved (2) Acute respiratory failure Status: Resolved (3) Chronic respiratory failure Status: Chronic (4) Parkinson disease Status: Chronic (5) UTI (urinary tract infection) Status: Resolved (6) Encephalopathy Status: Resolved Assessment and Plan 10/09/15 update: Add KCl to IV fluids. BP still low. 1. Acute on chronic respiratory failure: Tracheostomy. Pulmonology managing. Status post treatment for pneumonia, right pneumothorax. Continues to have secretions. Continue pulmonary toilet, trach care. Continue bronchodilators. Continue prednisone. 2. 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 He is nonverbal. Not currently on sedation. 3. History of orthostasis: Continue Midodrine. 4. Malnutrition: Tolerating Jevity 1.5 at 60 mL per hour per PEG tube. Continue Prevacid. 5. Hypernatremia: Improved. Free water 300 mils every 8 hours. 6. Sepsis, pneumonia, UTI: Appreciate infectious disease recommendations. MRSA colonization. Watching off antibiotics currently. Diflucan given from 08/17-. Levaquin given from 08/20-08/27/15. Completed course of meropenem on 08/21/15 for Klebsiella ESBL, Pseudomonas pneumonia. Continue Lactinex. Repeat urine culture growing Heena. 7. Bilateral lower extremity contractures, sacral decubitus ulcer present on admission: Continue wound care, physical therapy. Discussed with wound care nurses today. 8. GI prophylaxis: Prevacid. 9. DVT prophylaxis: SCDs, Lovenox. German Bernal MD Oct 09, 2015 10:44
[2015-10-09] MEDS: NS + KCL 20 MEQ INJ 1,000 ML IV SCH (11:45)
--- NOTE | 2015-10-09 12:34 | HHI.IDPN ---
Subjective Subjective Remarks ID COVERAGE Notes reviewed. D/W RN Temps ok Last UC with yeast Stable on T-piece Antibiotics None Lines Peripheral IV with no e/o infection Past Medical History reviewed Allergies: Coded Allergies: *MDRO Multi-Drug Resistant Organism (Verified Adverse Reaction, Unknown, ) ESBL E. coli (urine) - 02/19/2015; ESBL K. pneumoniae (sputum) - 06/18/15, (urine) - 08/03/15,(sputum) - 08/03/15, (sputum) - 09/20/15 MRSA PCR POSITIVE - 03/20/2015 MDR-Pseudomonas (sputum)- 08/18/15, 09/20/15 Objective . Vital Signs Date Time Temp Pulse Resp B/P Pulse Ox O2 Delivery O2 Flow Rate FiO2 10/09/15 08:32 87 10/09/15 08:00 96.1 90 22 84/58 96 10/09/15 04:20 96 50 10/09/15 04:00 95.9 80 19 96/65 96 10/09/15 01:15 96 50 10/09/15 00:00 96.7 104 18 101/59 96 10/08/15 21:16 96 50 10/08/15 21:15 96 T-piece 50 10/08/15 20:00 59 10/08/15 20:00 97.8 69 18 101/59 96 10/08/15 16:00 96.0 64 16 127/79 99 10/08/15 10/08/15 10/09/15 15:00 23:00 07:00 Intake Total 0 ml 273 ml 0 ml Output Total 1300 ml 500 ml 250 ml Balance -1300 ml -227 ml -250 ml Intake Oral 0 ml 0 ml 0 ml IV Total 0 ml Tube Feeding 0 ml 273 ml Output Urine Total 1300 ml 500 ml 250 ml # Bowel Movements 0 0 0 . Laboratory Tests Test 10/08/15 10/09/15 06:34 05:57 White Blood Count 9.6 TH/MM3 8.4 TH/MM3 Red Blood Count 3.33 MIL/MM3 3.83 MIL/MM3 Hemoglobin 8.9 GM/DL 10.1 GM/DL Hematocrit 27.7 % 31.3 % Mean Corpuscular Volume 83.2 FL 81.8 FL Mean Corpuscular Hemoglobin 26.8 PG 26.4 PG Mean Corpuscular Hemoglobin 32.2 % 32.3 % Concent Red Cell Distribution Width 17.3 % 17.4 % Platelet Count 145 TH/MM3 148 TH/MM3 Mean Platelet Volume 9.8 FL 9.5 FL Neutrophils (%) (Auto) 83.9 % 81.3 % Lymphocytes (%) (Auto) 9.1 % 12.2 % Monocytes (%) (Auto) 4.9 % 4.9 % Eosinophils (%) (Auto) 2.0 % 1.4 % Basophils (%) (Auto) 0.1 % 0.2 % Neutrophils # (Auto) 8.1 TH/MM3 6.8 TH/MM3 Lymphocytes # (Auto) 0.9 TH/MM3 1.0 TH/MM3 Monocytes # (Auto) 0.5 TH/MM3 0.4 TH/MM3 Eosinophils # (Auto) 0.2 TH/MM3 0.1 TH/MM3 Basophils # (Auto) 0.0 TH/MM3 0.0 TH/MM3 CBC Comment DIFF FINAL DIFF FINAL Differential Comment Laboratory Tests Test 10/09/15 05:57 Sodium Level 135 MEQ/L Potassium Level 3.6 MEQ/L Chloride Level 98 MEQ/L Carbon Dioxide Level 32.9 MEQ/L Anion Gap 4 MEQ/L Blood Urea Nitrogen 13 MG/DL Creatinine 0.28 MG/DL Estimat Glomerular Filtration 341 ML/MIN Rate Random Glucose 118 MG/DL Calcium Level 8.7 MG/DL Imaging Chest X-Ray 10/05/15 0000 Signed Impressions: Service Date/Time: Monday, October 05, 2015 19:56 - CONCLUSION: Hyperinflation with no acute cardiopulmonary process. Scott Goode MD Chest X-Ray 09/25/15 0000 Signed Impressions: Service Date/Time: Friday, September 25, 2015 09:28 - CONCLUSION: No acute disease. Tai Taylor Jr., MD Abdomen X-Ray 09/21/15 0000 Signed Impressions: Service Date/Time: Monday, September 21, 2015 11:31 - CONCLUSION: Normal bowel gas pattern. Tai Taylor Jr., MD Tunnelled Chest Tube Removal 08/05/15 1100 Signed Impressions: Service Date/Time: Wednesday, August 05, 2015 11:00 - CONCLUSION: Uncomplicated chest tube removal. Blaine Jackson MD Chest Tube Change 07/31/15 0000 Signed Impressions: Service Date/Time: Friday, July 31, 2015 14:34 - CONCLUSION: Uncomplicated reposition of previously placed chest tube as above. Blaine Jackson MD Chest Tube Insertion 07/30/15 0000 Signed Impressions: Service Date/Time: July 14:50 - CONCLUSION: Uncomplicated chest tube placement as above. Blaine Jackson MD Catheter Change 07/27/15 0000 Signed Impressions: Service Date/Time: Monday, July 27, 2015 14:43 - CONCLUSION: Uncomplicated gastrostomy tube exchange as above. Blaine Jackson MD Chest CT 07/11/15 Signed Impressions: Service Date/Time: Saturday, July 11, 2015 09:49 - CONCLUSION: Scattered patchy densities significantly improved from previous study. Tiny anterior right basilar pneumothorax. Right-sided chest tube in good position. Néstor Matamoros MD Head CT 06/18/151902 Signed Impressions: Service Date/Time: June 19:31 - CONCLUSION: Diffuse atrophy unchanged. No acute intracranial findings. Kush Briscoe MD Abdomen/Pelvis CT 06/18/151902 Signed Impressions: Service Date/Time: , June 18, 2015 19:36 - CONCLUSION: 1. Chronic nonspecific urinary bladder wall thickening. Bladder collapsed with Valdez catheter in place. 2. Chronic bilateral mid to lower lung zone groundglass opacity. 3. Nonobstructing left renal calculus. 4. Distended rectum. Kush Briscoe MD Physical Exam GENERAL: eyes closed, on T piece, NAD. SKIN: No generalized rash. Cool and dry. HEENT: [place] conjunctivae, no icterus, moist mucosa NECK: Trach site looks ok. CARDIOVASCULAR: No murmur appreciated. RESPIRATORY: Coarse breath sounds bilaterally, decreased at the bases. GASTROINTESTINAL: Abdomen soft, non-tender, not distended. No hepatosplenomegaly PEG tube site clean, no evidence of infection. MUSCULOSKELETAL: No cyanosis No pedal edema. Contracted all 4 extremeties. NEUROLOGICAL: Keeping his eyes closed, contractures of the extremities, no interaction. Peripheral IV line sites with no evidence of infection. ; Valdez in place, urine looks clear, with some mild sediment. Assessment & Plan Remarks PSAE ESBL cath associated UTI. S/P Rx Leukocytosis, resolved Chronic respiratory failure was on trach - Tracheobronchitis with purulent secretions - growing PSAE and ESBL Kleb in spuutum though CXR is negative - tolerating T-piece Chronic encephalopathy with underlying diagnosis of advanced dementia as well as advanced Parkinson's disease. Abnormal UA, S/P valdez change 10/04 Status post trach Status post gastrostomy tube with no evidence of infection. Stage II sacral decubitus ulcer present on admission. Recommendations Repeat UA Will not start any new Abx at this time Monitor temps Monitor progress D/W Bhavna Piedra MD Oct 09, 2015 12:34
[2015-10-09] MEDS: OLANZapine 5 MG TAB GT SCH (23:36)
[2015-10-09] MEDS: ENOXAPARIN SODIUM 40 MG/0.4 ML SYRINGE SQ SCH (23:36)
[2015-10-10] VITALS (11 sets, daily range): BP systolic 110–130; BP diastolic 67–82; PULSE 71–82; RESP 15–24; TEMP 96.1–98.6; O2SAT 75–99
[2015-10-10] MEDS: NS + KCL 20 MEQ INJ 1,000 ML IV SCH ×3 (02:42→15:06)
[2015-10-10] MEDS: INSULIN NovoLIN REGULAR SUPPLEMENTAL SCALE SQ SCH ×4 (02:45→21:00)
[2015-10-10] MEDS: CARBIDOPA/LEVODOPA 25 MG/100 MG TAB GT SCH ×3 (06:06→22:01)
[2015-10-10] MEDS: clonazePAM 1 MG TAB PO SCH ×3 (06:06→22:01)
[2015-10-10 07:22] LABS: BICARBONATE 34.8 MEQ/L (21.0-32.0); POTASSIUM 3.7 MEQ/L (3.5-5.1)
[2015-10-10] MEDS: CHLORHEXIDINE 0.12% (ORAL KIT) 15 ML CUP MT SCH ×2 (08:00→20:00)
[2015-10-10] MEDS: LANSOPRAZOLE SOLUTAB 30 MG TAB NG SCH (08:55)
[2015-10-10] MEDS: MIDODRINE 5 MG TAB G-TUBE SCH ×2 (08:55→22:01)
[2015-10-10] MEDS: QUEtiapine FUMARATE 25 MG TAB G-TUBE SCH ×2 (08:55→22:01)
[2015-10-10] MEDS: LACTOBACILLUS ACIDOPHILUS TAB PO SCH ×3 (08:55→17:19)
[2015-10-10] MEDS: GABAPENTIN 300 MG CAP G-TUBE SCH ×2 (08:55→22:01)
[2015-10-10] MEDS: PARoxetine HCL 20 MG TAB G-TUBE SCH (08:55)
[2015-10-10] MEDS: predniSONE 20 MG TAB PO SCH (08:55)
[2015-10-10] MEDS: SODIUM CHLORIDE 0.9% FLUSH 5 ML FLUSH IVF SCH ×2 (08:55→22:03)
[2015-10-10] MEDS: INSULIN DETEMIR 100 UNITS/ML VIAL SQ SCH ×2 (08:56→22:03)
[2015-10-10] MEDS: COLLAGENASE OINT 30 GM TUBE TOP SCH (08:58)
[2015-10-10] MEDS: ARTIFICIAL TEARS OPTH SOLN 15 ML BTL EACH EYE SCH ×3 (08:59→17:19)
--- NOTE | 2015-10-10 11:02 | HHI.PR ---
Subjective Remarks Follow up respiratory failure, hypotension, hyponatremia. No change clinically. No events reported. Objective Vitals Vital Signs Date Time Temp Pulse Resp B/P Pulse Ox O2 Delivery O2 Flow Rate FiO2 10/10/15 09:25 95 T-piece 5.00 50 10/10/15 08:07 97.7 82 24 110/67 99 10/10/15 04:00 96.8 74 20 124/70 96 10/10/15 02:25 95 BiPAP 50 10/10/15 02:23 95 50 10/10/15 00:15 96 50 10/10/15 00:00 96.4 75 22 126/71 75 10/09/15 20:30 97.1 67 17 157/95 100 10/09/15 20:25 96 50 10/09/15 20:00 78 10/09/15 20:00 50 10/09/15 17:39 95 BiPAP 50 10/09/15 17:37 95 50 10/09/15 16:00 96.0 87 16 117/77 97 I/O 10/09/15 10/09/15 10/09/15 10/10/15 10/10/15 10/10/15 07:00 15:00 23:00 07:00 15:00 23:00 Intake Total 0 ml 0 ml 1377 ml 1038 ml Output Total 250 ml 1600 ml 400 ml Balance -250 ml -1600 ml 977 ml 1038 ml Intake Oral 0 ml 0 ml 0 ml IV Total 667 ml 631 ml Tube Feeding 590 ml 287 ml Other 120 ml 120 ml Output Urine Total 250 ml 1600 ml 400 ml # Bowel Movements 0 0 0 Result Diagram: 10/09/15 0557 10/10/15 0506 Imaging Last Impressions Renal Ultrasound 10/07/15 0000 Signed Impressions: Service Date/Time: Wednesday, October 07, 2015 18:29 - CONCLUSION: 1. No acute findings. 3.6 cm left renal cyst. Putnam catheter in bladder. Amaury Ellsworth MD Chest X-Ray 10/05/15 0000 Signed Impressions: Service Date/Time: Monday, October 05, 2015 19:56 - CONCLUSION: Hyperinflation with no acute cardiopulmonary process. Scott Goode MD Abdomen X-Ray 09/21/15 0000 Signed Impressions: Service Date/Time: Monday, September 21, 2015 11:31 - CONCLUSION: Normal bowel gas pattern. Tai Taylor Jr., MD Tunnelled Chest Tube Removal 08/05/15 1100 Signed Impressions: Service Date/Time: Wednesday, August 05, 2015 11:00 - CONCLUSION: Uncomplicated chest tube removal. Blaine Jackson MD Chest Tube Change 07/31/15 0000 Signed Impressions: Service Date/Time: Friday, July 31, 2015 14:34 - CONCLUSION: Uncomplicated reposition of previously placed chest tube as above. Blaine Jackson MD Chest Tube Insertion 07/30/15 0000 Signed Impressions: Service Date/Time: July 14:50 - CONCLUSION: Uncomplicated chest tube placement as above. Blaine Jackson MD Catheter Change 07/27/15 0000 Signed Impressions: Service Date/Time: Monday, July 27, 2015 14:43 - CONCLUSION: Uncomplicated gastrostomy tube exchange as above. Blaine Jackson MD Chest CT 07/11/15 0000 Signed Impressions: Service Date/Time: Saturday, July 11, 2015 09:49 - CONCLUSION: Scattered patchy densities significantly improved from previous study. Tiny anterior right basilar pneumothorax. Right-sided chest tube in good position. Néstor Matamoros MD Head CT 06/18/151902 Signed Impressions: Service Date/Time: June 19:31 - CONCLUSION: Diffuse atrophy unchanged. No acute intracranial findings. Kush Briscoe MD Abdomen/Pelvis CT 06/18/151902 Signed Impressions: Service Date/Time: June 19:36 - CONCLUSION: 1. Chronic nonspecific urinary bladder wall thickening. Bladder collapsed with Putnam catheter in place. 2. Chronic bilateral mid to lower lung zone groundglass opacity. 3. Nonobstructing left renal calculus. 4. Distended rectum. Kush Briscoe MD Objective Remarks General: Thin male in no acute distress. Heart: Regular rate and rhythm. No murmur. Lungs: Coarse breath sounds bilaterally. Breathing is nonlabored. Tracheostomy. Abdomen: Soft, nontender, nondistended. Extremities: No lower extremity edema. SCDs. Psych: Nonverbal. Neuro: Does not follow commands. Does not track. Procedures 07/26- PEG replacement 07/29- right pigtail catheter placement for new pneumothorax Urinary Catheter: Yes Assessment to: Continue Putnam insert reason: Obstruction/Retention Date of Insertion: Oct 05, 2015 Vascular Central Line Catheter: No A/P Problem List: (1) Sepsis due to urinary tract infection Status: Resolved (2) Acute respiratory failure Status: Resolved (3) Chronic respiratory failure Status: Chronic (4) Parkinson disease Status: Chronic (5) UTI (urinary tract infection) Status: Resolved (6) Encephalopathy Status: Resolved Assessment and Plan 10/10/15 update: BP improving. Continue IV fluids. Repeat UA ordered by ID. 1. Acute on chronic respiratory failure: Tracheostomy. Pulmonology managing. Status post treatment for pneumonia, right pneumothorax. Continues to have secretions. Continue pulmonary toilet, trach care. Continue bronchodilators. Continue prednisone. 2. 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 He is nonverbal. Not currently on sedation. 3. History of orthostasis: Continue Midodrine. 4. Malnutrition: Tolerating Jevity 1.5 at 60 mL per hour per PEG tube. Continue Prevacid. 5. Hypernatremia: Improved. Free water 300 mils every 8 hours. 6. Sepsis, pneumonia, UTI: Appreciate infectious disease recommendations. MRSA colonization. Watching off antibiotics currently. Diflucan given from 08/17-. Levaquin given from 08/20-08/27/15. Completed course of meropenem on 08/21/15 for Klebsiella ESBL, Pseudomonas pneumonia. Continue Lactinex. Repeat urine culture growing Heena. 7. Bilateral lower extremity contractures, sacral decubitus ulcer present on admission: Continue wound care, physical therapy. Discussed with wound care nurses today. 8. GI prophylaxis: Prevacid. 9. DVT prophylaxis: SCDs, Lovenox. German Bernal MD Oct 10, 2015 11:02
[2015-10-10] MEDS: OLANZapine 5 MG TAB GT SCH (22:01)
[2015-10-10] MEDS: ENOXAPARIN SODIUM 40 MG/0.4 ML SYRINGE SQ SCH (22:02)
[2015-10-11] VITALS (12 sets, daily range): BP systolic 111–137; BP diastolic 65–92; PULSE 63–80; RESP 15–20; TEMP 95.5–97.4; O2SAT 94–98
[2015-10-11] MEDS: NS + KCL 20 MEQ INJ 1,000 ML IV SCH ×3 (02:31→21:54)
[2015-10-11] MEDS: INSULIN NovoLIN REGULAR SUPPLEMENTAL SCALE SQ SCH ×4 (03:00→21:00)
[2015-10-11] MEDS: CARBIDOPA/LEVODOPA 25 MG/100 MG TAB GT SCH ×3 (05:53→21:54)
[2015-10-11] MEDS: clonazePAM 1 MG TAB PO SCH ×3 (05:53→19:59)
[2015-10-11] MEDS: CHLORHEXIDINE 0.12% (ORAL KIT) 15 ML CUP MT SCH ×2 (08:00→20:00)
[2015-10-11] MEDS: COLLAGENASE OINT 30 GM TUBE TOP SCH (09:00)
[2015-10-11] MEDS: SODIUM CHLORIDE 0.9% FLUSH 5 ML FLUSH IVF SCH ×2 (09:00→20:00)
[2015-10-11] MEDS: GABAPENTIN 300 MG CAP G-TUBE SCH ×2 (09:18→19:59)
[2015-10-11] MEDS: LACTOBACILLUS ACIDOPHILUS TAB PO SCH ×3 (09:19→17:30)
[2015-10-11] MEDS: PARoxetine HCL 20 MG TAB G-TUBE SCH (09:19)
[2015-10-11] MEDS: LANSOPRAZOLE SOLUTAB 30 MG TAB NG SCH (09:20)
[2015-10-11] MEDS: QUEtiapine FUMARATE 25 MG TAB G-TUBE SCH ×2 (09:21→19:59)
[2015-10-11] MEDS: MIDODRINE 5 MG TAB G-TUBE SCH ×2 (09:21→19:59)
[2015-10-11] MEDS: predniSONE 20 MG TAB PO SCH (09:21)
[2015-10-11] MEDS: INSULIN DETEMIR 100 UNITS/ML VIAL SQ SCH ×2 (09:22→20:00)
[2015-10-11] MEDS: ARTIFICIAL TEARS OPTH SOLN 15 ML BTL EACH EYE SCH ×3 (09:24→17:30)
--- NOTE | 2015-10-11 12:11 | HHI.PR ---
Subjective Remarks Follow up respiratory failure, hypotension, hyponatremia. No changes/events reported by nursing. Patient still nonresponsive. Objective Vitals Vital Signs Date Time Temp Pulse Resp B/P Pulse Ox O2 Delivery O2 Flow Rate FiO2 10/11/15 09:09 98 T-piece 40 10/11/15 07:20 97.0 65 15 118/70 98 10/11/15 04:05 94 35 10/11/15 01:40 98 35 10/11/15 01:30 98 Bi-Pap 35 10/11/15 00:00 Bi-Pap 50 Humidified 10/11/15 00:00 95.6 63 15 119/65 96 10/10/15 20:00 72 10/10/15 20:00 Bi-Pap 50 10/10/15 20:00 96.1 79 15 119/80 99 10/10/15 19:49 98 50 10/10/15 16:31 98.6 71 22 130/82 98 10/10/15 16:06 T-Piece 5.00 50 10/10/15 12:15 T-Piece I/O 10/10/15 10/10/15 10/10/15 10/11/15 10/11/15 10/11/15 07:00 15:00 23:00 07:00 15:00 23:00 Intake Total 1038 ml 0 ml 1981 ml Output Total 2650 ml 400 ml Balance 1038 ml -2650 ml -400 ml 1981 ml Intake Oral 0 ml IV Total 631 ml 941 ml Tube Feeding 287 ml 890 ml Other 120 ml 150 ml Output Urine Total 2650 ml 400 ml # Bowel Movements 1 Result Diagram: 10/09/15 0557 10/10/15 0506 Imaging Last Impressions Renal Ultrasound 10/07/15 0000 Signed Impressions: Service Date/Time: Wednesday, October 07, 2015 18:29 - CONCLUSION: 1. No acute findings. 3.6 cm left renal cyst. Putnam catheter in bladder. Amaury Ellsworth MD Chest X-Ray 10/05/15 0000 Signed Impressions: Service Date/Time: Monday, October 05, 2015 19:56 - CONCLUSION: Hyperinflation with no acute cardiopulmonary process. Scott Goode MD Abdomen X-Ray 09/21/15 0000 Signed Impressions: Service Date/Time: Monday, September 21, 2015 11:31 - CONCLUSION: Normal bowel gas pattern. Tai Taylor Jr., MD Tunnelled Chest Tube Removal 08/05/15 1100 Signed Impressions: Service Date/Time: Wednesday, August 05, 2015 11:00 - CONCLUSION: Uncomplicated chest tube removal. Blaine Jackson MD Chest Tube Change 07/31/15 0000 Signed Impressions: Service Date/Time: Friday, July 31, 2015 14:34 - CONCLUSION: Uncomplicated reposition of previously placed chest tube as above. Blaine Jackson MD Chest Tube Insertion 07/30/15 0000 Signed Impressions: Service Date/Time: July 14:50 - CONCLUSION: Uncomplicated chest tube placement as above. Blaine Jackson MD Catheter Change 07/27/15 0000 Signed Impressions: Service Date/Time: Monday, July 27, 2015 14:43 - CONCLUSION: Uncomplicated gastrostomy tube exchange as above. Blaine Jackson MD Chest CT 07/11/15 0000 Signed Impressions: Service Date/Time: Saturday, July 11, 2015 09:49 - CONCLUSION: Scattered patchy densities significantly improved from previous study. Tiny anterior right basilar pneumothorax. Right-sided chest tube in good position. Néstor Matamoros MD Head CT 06/18/151902 Signed Impressions: Service Date/Time: June 19:31 - CONCLUSION: Diffuse atrophy unchanged. No acute intracranial findings. Kush Briscoe MD Abdomen/Pelvis CT 06/18/151902 Signed Impressions: Service Date/Time: June 19:36 - CONCLUSION: 1. Chronic nonspecific urinary bladder wall thickening. Bladder collapsed with Putnam catheter in place. 2. Chronic bilateral mid to lower lung zone groundglass opacity. 3. Nonobstructing left renal calculus. 4. Distended rectum. Kush Briscoe MD Objective Remarks General: Thin male in no acute distress. Heart: Regular rate and rhythm. No murmur. Lungs: Coarse breath sounds bilaterally. Breathing is nonlabored. Tracheostomy. Abdomen: Soft, nontender, nondistended. Extremities: No lower extremity edema. SCDs. Psych: Nonverbal. Neuro: Does not follow commands. Does not track. Procedures 07/26- PEG replacement 07/29- right pigtail catheter placement for new pneumothorax Urinary Catheter: Yes Assessment to: Continue Putnam insert reason: Obstruction/Retention Date of Insertion: Oct 05, 2015 Vascular Central Line Catheter: No A/P Problem List: (1) Sepsis due to urinary tract infection Status: Resolved (2) Acute respiratory failure Status: Resolved (3) Chronic respiratory failure Status: Chronic (4) Parkinson disease Status: Chronic (5) UTI (urinary tract infection) Status: Acute (6) Encephalopathy Status: Resolved Assessment and Plan 10/11/15 update: BP stable. Decrease rate of IV fluids. Repeat UA ordered by ID, not done yet. 1. Acute on chronic respiratory failure: Tracheostomy. Pulmonology managing. Status post treatment for pneumonia, right pneumothorax. Continues to have secretions. Continue pulmonary toilet, trach care. Continue bronchodilators. Continue prednisone. 2. 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 He is nonverbal. Not currently on sedation. 3. History of orthostasis: Continue Midodrine. 4. Malnutrition: Tolerating Jevity 1.5 at 60 mL per hour per PEG tube. Continue Prevacid. 5. Hypernatremia: Improved. Free water 300 mils every 8 hours. 6. Sepsis, pneumonia, UTI: Appreciate infectious disease recommendations. MRSA colonization. Watching off antibiotics currently. Diflucan given from 08/17-. Levaquin given from 08/20-08/27/15. Completed course of meropenem on 08/21/15 for Klebsiella ESBL, Pseudomonas pneumonia. Continue Lactinex. Repeat urine culture growing Heena. 7. Bilateral lower extremity contractures, sacral decubitus ulcer present on admission: Continue wound care, physical therapy. Discussed with wound care nurses today. 8. GI prophylaxis: Prevacid. 9. DVT prophylaxis: SCDs, Lovenox. German Bernal MD Oct 11, 2015 12:11
[2015-10-11 15:30] LABS: BACTERIA, URINE RARE /hpf; BLOOD, URINE NEG (NEG); GLUCOSE,URINE 70 mg/dL (NEG); KETONE, URINE NEG (NEG); MUCUS URINE FEW /lpf (OCC); NITRITE,URINE NEG (NEG); SQUAMOUS EPITHELIAL CELL URINE <1 /hpf (0-5); URINE COLOR LIGHT-YELLOW (YELLW/STRAW)
[2015-10-11 15:34] LABS: COMMENT (UR) CATH-CULTURE IND; CULTURE IF INDICATED CATH CULTURE IND
[2015-10-11] MEDS: ENOXAPARIN SODIUM 40 MG/0.4 ML SYRINGE SQ SCH (19:59)
[2015-10-11] MEDS: HYOSCYAMINE SOLN 0.125 MG/ML 15 ML BTL PO PRN (19:59)
[2015-10-11] MEDS: OLANZapine 5 MG TAB GT SCH (20:00)
[2015-10-12] VITALS (18 sets, daily range): BP systolic 88–136; BP diastolic 55–92; PULSE 72–101; RESP 18–24; TEMP 95.9–97.8; O2SAT 93–99
[2015-10-12] MEDS: INSULIN NovoLIN REGULAR SUPPLEMENTAL SCALE SQ SCH ×4 (02:57→18:00)
[2015-10-12] MEDS: clonazePAM 1 MG TAB PO SCH ×3 (05:26→21:07)
[2015-10-12] MEDS: CARBIDOPA/LEVODOPA 25 MG/100 MG TAB GT SCH ×3 (05:26→21:07)
[2015-10-12] MEDS: HYOSCYAMINE SOLN 0.125 MG/ML 15 ML BTL PO PRN ×2 (05:27→11:30)
[2015-10-12] MEDS: CHLORHEXIDINE 0.12% (ORAL KIT) 15 ML CUP MT SCH ×2 (07:50→21:10)
[2015-10-12] MEDS: REMOVE OLD PATCH TD SCH (08:00)
[2015-10-12] MEDS: predniSONE 20 MG TAB PO SCH (08:36)
[2015-10-12] MEDS: QUEtiapine FUMARATE 25 MG TAB G-TUBE SCH ×2 (08:36→21:07)
[2015-10-12] MEDS: PARoxetine HCL 20 MG TAB G-TUBE SCH (08:36)
[2015-10-12] MEDS: GABAPENTIN 300 MG CAP G-TUBE SCH ×2 (08:36→21:06)
[2015-10-12] MEDS: MIDODRINE 5 MG TAB G-TUBE SCH ×2 (08:36→21:07)
[2015-10-12] MEDS: INSULIN DETEMIR 100 UNITS/ML VIAL SQ SCH (08:37)
[2015-10-12] MEDS: LANSOPRAZOLE SOLUTAB 30 MG TAB NG SCH (08:37)
[2015-10-12] MEDS: LACTOBACILLUS ACIDOPHILUS TAB PO SCH ×3 (08:37→18:00)
[2015-10-12] MEDS: fentaNYL 50 MCG/HR PATCH TD SCH (08:38)
[2015-10-12] MEDS: COLLAGENASE OINT 30 GM TUBE TOP SCH (08:38)
[2015-10-12] MEDS: ARTIFICIAL TEARS OPTH SOLN 15 ML BTL EACH EYE SCH ×3 (08:39→18:00)
[2015-10-12] MEDS: SODIUM CHLORIDE 0.9% FLUSH 5 ML FLUSH IVF SCH ×2 (09:00→21:08)
[2015-10-12 10:00] LABS: AUTOMATED NEUTROPHIL # 6.7 TH/MM3 (1.8-7.7); BASOPHIL % 0.5 % (0.0-2.0); EOSINOPHIL # 0.3 TH/MM3 (0-0.4); EOSINOPHIL % 3.1 % (0.0-4.0); HEMATOCRIT 32.5 % (39.0-51.0); LYMPH % 14.8 % (9.0-44.0); LYMPHOCYTE # 1.3 TH/MM3 (1.0-4.8); MEAN CELL VOLUME 82.3 FL (80.0-100.0); MEAN CORPUSCULAR HEMOGLOBIN 26.7 PG (27.0-34.0); MEAN CORPUSCULAR HGB CONC 32.4 % (32.0-36.0); MONO % 6.7 % (0.0-8.0); NEUT % 74.9 % (16.0-70.0); PLATELET COUNT 129 TH/MM3 (150-450); RED BLOOD COUNT 3.95 MIL/MM3 (4.50-5.90); RED CELL DISTRIBUTION WIDTH 17.1 % (11.6-17.2); WHITE BLOOD COUNT 8.9 TH/MM3 (4.0-11.0)
[2015-10-12 10:05] LABS: HEMO FLAGS AUTO DIFF
[2015-10-12 10:23] LABS: POTASSIUM 4.4 MEQ/L (3.5-5.1)
[2015-10-12 11:06] LABS: BANDS 6 % (0-6); EOSINOPHILS 2 % (0-4); NEUTROPHIL # MANUAL DIFF 7.1 TH/MM3 (1.8-7.7); POLYS (SEG NEUTROPHILS) 74 % (16-70); WBC DIFF SAMPLE 100
[2015-10-12 11:07] LABS: PLATELET ESTIMATE SMEAR LOW (NORMAL); PLATELET MORPHOLOGY NORMAL (NORMAL); SCAN/DIFF FINAL DIFF MANUAL
--- NOTE | 2015-10-12 12:31 | HHI.IDPN ---
Subjective Subjective Remarks ID COVERAGE Notes reviewed. Temps ok Last UC with yeast Repeat UA negative Stable on T-piece Patient has not been on Abx Antibiotics None Lines Peripheral IV with no e/o infection Past Medical History reviewed Allergies: Coded Allergies: *MDRO Multi-Drug Resistant Organism (Verified Adverse Reaction, Unknown, ) ESBL E. coli (urine) - 02/19/2015; ESBL K. pneumoniae (sputum) - 06/18/15, (urine) - 08/03/15,(sputum) - 08/03/15, (sputum) - 09/20/15 MRSA PCR POSITIVE - 03/20/2015 MDR-Pseudomonas (sputum)- 08/18/15, 09/20/15 Objective . Vital Signs Date Time Temp Pulse Resp B/P Pulse Ox O2 Delivery O2 Flow Rate FiO2 10/12/15 08:05 95 T-piece 40 10/12/15 08:00 Bi-Pap 6.00 30 Trach Collar Humidified 10/12/15 08:00 96.7 88 22 131/92 95 10/12/15 07:45 92 10/12/15 04:58 97 30 10/12/15 04:00 97.8 72 18 121/82 97 10/12/15 04:00 Bi-Pap 50 Trach Collar Humidified 10/12/15 01:36 97 30 10/12/15 00:00 96.2 77 18 96/76 96 10/12/15 00:00 Bi-Pap 50 Trach Collar Humidified 10/11/15 20:34 80 10/11/15 20:05 98 35 10/11/15 20:00 Bi-Pap 50 Trach Collar Humidified 10/11/15 20:00 97.4 71 18 111/77 98 10/11/15 16:21 76 10/11/15 16:00 96.5 75 18 137/92 96 10/11/15 10/11/15 10/12/15 15:00 23:00 07:00 Intake Total 2813 ml 1173 ml Output Total 2700 ml 2000 ml 550 ml Balance -2700 ml 813 ml 623 ml Intake Oral 0 ml 0 ml IV Total 1943 ml 558 ml Tube Feeding 750 ml 355 ml Tube Irrigant 120 ml 60 ml Other 200 ml Output Urine Total 2700 ml 2000 ml 550 ml # Bowel Movements 0 0 . Laboratory Tests Test 10/12/15 09:15 White Blood Count 8.9 TH/MM3 Red Blood Count 3.95 MIL/MM3 Hemoglobin 10.6 GM/DL Hematocrit 32.5 % Mean Corpuscular Volume 82.3 FL Mean Corpuscular Hemoglobin 26.7 PG Mean Corpuscular Hemoglobin 32.4 % Concent Red Cell Distribution Width 17.1 % Platelet Count 129 TH/MM3 Mean Platelet Volume 9.2 FL Neutrophils (%) (Auto) 74.9 % Lymphocytes (%) (Auto) 14.8 % Monocytes (%) (Auto) 6.7 % Eosinophils (%) (Auto) 3.1 % Basophils (%) (Auto) 0.5 % Neutrophils # (Auto) 6.7 TH/MM3 Lymphocytes # (Auto) 1.3 TH/MM3 Monocytes # (Auto) 0.6 TH/MM3 Eosinophils # (Auto) 0.3 TH/MM3 Basophils # (Auto) 0.0 TH/MM3 CBC Comment AUTO DIFF Differential Total Cells 100 Counted Neutrophils % (Manual) 74 % Band Neutrophils % 6 % Lymphocytes % 16 % Monocytes % 2 % Eosinophils % 2 % Neutrophils # (Manual) 7.1 TH/MM3 Differential Comment FINAL DIFF MANUAL Platelet Estimate LOW Platelet Morphology Comment NORMAL Laboratory Tests Test 10/12/15 09:15 Sodium Level 135 MEQ/L Potassium Level 4.4 MEQ/L Chloride Level 96 MEQ/L Carbon Dioxide Level 35.0 MEQ/L Anion Gap 4 MEQ/L Blood Urea Nitrogen 11 MG/DL Creatinine 0.25 MG/DL Estimat Glomerular Filtration 389 ML/MIN Rate Random Glucose 76 MG/DL Calcium Level 8.9 MG/DL Microbiology Date/Time Procedure Status Source Growth 10/11/15 15:00 Urine Culture Received Urine Catheterized Urine Pending Imaging Chest X-Ray 10/05/15 0000 Signed Impressions: Service Date/Time: Monday, October 05, 2015 19:56 - CONCLUSION: Hyperinflation with no acute cardiopulmonary process. Scott Goode MD Chest X-Ray 09/25/15 0000 Signed Impressions: Service Date/Time: Friday, September 25, 2015 09:28 - CONCLUSION: No acute disease. Tai Taylor Jr., MD Abdomen X-Ray 09/21/15 0000 Signed Impressions: Service Date/Time: Monday, September 21, 2015 11:31 - CONCLUSION: Normal bowel gas pattern. Tai Taylor Jr., MD Tunnelled Chest Tube Removal 08/05/15 1100 Signed Impressions: Service Date/Time: Wednesday, August 05, 2015 11:00 - CONCLUSION: Uncomplicated chest tube removal. Blaine Jackson MD Chest Tube Change 07/31/15 0000 Signed Impressions: Service Date/Time: Friday, July 31, 2015 14:34 - CONCLUSION: Uncomplicated reposition of previously placed chest tube as above. Blaine Jackson MD Chest Tube Insertion 07/30/15 0000 Signed Impressions: Service Date/Time: July 14:50 - CONCLUSION: Uncomplicated chest tube placement as above. Blaine Jackson MD Catheter Change 07/27/15 0000 Signed Impressions: Service Date/Time: Monday, July 27, 2015 14:43 - CONCLUSION: Uncomplicated gastrostomy tube exchange as above. Blaine Jackson MD Chest CT 07/11/15 Signed Impressions: Service Date/Time: Saturday, July 11, 2015 09:49 - CONCLUSION: Scattered patchy densities significantly improved from previous study. Tiny anterior right basilar pneumothorax. Right-sided chest tube in good position. Néstor Matamoros MD Head CT 06/18/151902 Signed Impressions: Service Date/Time: June 19:31 - CONCLUSION: Diffuse atrophy unchanged. No acute intracranial findings. Kush Briscoe MD Abdomen/Pelvis CT 06/18/151902 Signed Impressions: Service Date/Time: June 19:36 - CONCLUSION: 1. Chronic nonspecific urinary bladder wall thickening. Bladder collapsed with Valdez catheter in place. 2. Chronic bilateral mid to lower lung zone groundglass opacity. 3. Nonobstructing left renal calculus. 4. Distended rectum. Kush Briscoe MD Physical Exam GENERAL: eyes closed, on T piece, NAD. No interaction SKIN: No generalized rash. Cool and dry. HEENT: Coco conjunctivae, no icterus, moist mucosa NECK: Trach site looks ok. RESPIRATORY: decreased at the bases. GASTROINTESTINAL: Abdomen soft, non-tender, not distended. No hepatosplenomegaly PEG tube site clean, no evidence of infection. MUSCULOSKELETAL: No cyanosis No pedal edema. Contracted all 4 extremeties. NEUROLOGICAL: Keeping his eyes closed, contractures of the extremities, no interaction. Peripheral IV line sites with no evidence of infection. ; Valdez in place, urine looks clear Assessment & Plan Remarks PSAE ESBL cath associated UTI. S/P Rx Leukocytosis, resolved Chronic respiratory failure was on trach - Tracheobronchitis with purulent secretions - growing PSAE and ESBL Kleb in spuutum though CXR is negative - tolerating T-piece Chronic encephalopathy with underlying diagnosis of advanced dementia as well as advanced Parkinson's disease. Abnormal UA, S/P valdez change 10/04 Status post trach Status post gastrostomy tube with no evidence of infection. Stage II sacral decubitus ulcer present on admission. Recommendations Patient clinically stable from ID standpoint No new for any Abx at this time I will sign off Please reconsult if with any new ID issue or question Bhavna Weeks MD Oct 12, 2015 12:31
--- NOTE | 2015-10-12 13:02 | HHI.PR ---
Subjective Remarks On T Bar FIo2 35 % today . Awake . Neuro status same. On tube feeds. No fever. Objective Vital Signs Date Time Temp Pulse Resp B/P Pulse Ox O2 Delivery O2 Flow Rate FiO2 10/12/15 08:05 95 T-piece 40 10/12/15 08:00 Bi-Pap 6.00 30 Trach Collar Humidified 10/12/15 08:00 96.7 88 22 131/92 95 10/12/15 07:45 92 10/12/15 04:58 97 30 10/12/15 04:00 97.8 72 18 121/82 97 10/12/15 04:00 Bi-Pap 50 Trach Collar Humidified 10/12/15 01:36 97 30 10/12/15 00:00 96.2 77 18 96/76 96 10/12/15 00:00 Bi-Pap 50 Trach Collar Humidified 10/11/15 20:34 80 10/11/15 20:05 98 35 10/11/15 20:00 Bi-Pap 50 Trach Collar Humidified 10/11/15 20:00 97.4 71 18 111/77 98 10/11/15 16:21 76 10/11/15 16:00 96.5 75 18 137/92 96 I/O 10/11/15 10/11/15 10/11/15 10/12/15 10/12/15 10/12/15 07:00 15:00 23:00 07:00 15:00 23:00 Intake Total 1981 ml 2813 ml 1173 ml Output Total 2700 ml 2000 ml 550 ml Balance 1981 ml -2700 ml 813 ml 623 ml Intake Oral 0 ml 0 ml IV Total 941 ml 1943 ml 558 ml Tube Feeding 890 ml 750 ml 355 ml Tube Irrigant 120 ml 60 ml Other 150 ml 200 ml Output Urine Total 2700 ml 2000 ml 550 ml # Bowel Movements 0 0 Result Diagram: 10/12/1515 10/12/15914 Objective Remarks This is a thin white male who is unresponsive ,with a trach tube in place. HEENT: Pupils are equal and reactive to light. Throat clear. CHEST:Decreased breath sounds , with few wheezes scattered. CARDIOVASCULAR: S1 and S2 is normal.No murmur. ABDOMEN: Soft, nondistended. BS +. He has a PEG tube in place. EXTREMITIES: No edema.muscle wasting. Decubitus ++. NEURO: Lethargic , and has weak extremities .Reflexes not elicited.Skin is dry. Assessment and Plan Assessment and Plan IMPRESSION 1. Respiratory failure, resolving 2. Sepsis, resolving. 3. UTI 4. Tracheobronchitis 5. Parkinson's disease 6. Dementia. 7. Severe Deconditioning. Plan : 1. Cont PSV, 06/17, FIO2 35 % at 7 Pm to 7 am. 2. Nebs qid , duoneb. 3. Cont Tube feeds at 60 CC 4. Cont T Tube 40 % daytime. upto 12 hrs. 5. Levsin .25 mg tid for Secretions 6. Cont Trach toilet and lavage. 8. CXR in am Darren Kiser MD Oct 12, 2015 13:02
--- NOTE | 2015-10-12 13:06 | HHI.PR ---
Subjective Remarks Patient seen today in follow-up for medical management of chronic respiratory failure requiring tracheostomy and for cognitive impairment secondary to long- standing Parkinson's. Patient is a candidate for hospice care and this will be discussed further with the family. Objective Vitals Vital Signs Date Time Temp Pulse Resp B/P Pulse Ox O2 Delivery O2 Flow Rate FiO2 10/12/15 08:05 95 T-piece 40 10/12/15 08:00 Bi-Pap 6.00 30 Trach Collar Humidified 10/12/15 08:00 96.7 88 22 131/92 95 10/12/15 07:45 92 10/12/15 04:58 97 30 10/12/15 04:00 97.8 72 18 121/82 97 10/12/15 04:00 Bi-Pap 50 Trach Collar Humidified 10/12/15 01:36 97 30 10/12/15 00:00 96.2 77 18 96/76 96 10/12/15 00:00 Bi-Pap 50 Trach Collar Humidified 10/11/15 20:34 80 10/11/15 20:05 98 35 10/11/15 20:00 Bi-Pap 50 Trach Collar Humidified 10/11/15 20:00 97.4 71 18 111/77 98 10/11/15 16:21 76 10/11/15 16:00 96.5 75 18 137/92 96 I/O 10/11/15 10/11/15 10/11/15 10/12/15 10/12/15 10/12/15 07:00 15:00 23:00 07:00 15:00 23:00 Intake Total 1981 ml 2813 ml 1173 ml Output Total 2700 ml 2000 ml 550 ml Balance 1981 ml -2700 ml 813 ml 623 ml Intake Oral 0 ml 0 ml IV Total 941 ml 1943 ml 558 ml Tube Feeding 890 ml 750 ml 355 ml Tube Irrigant 120 ml 60 ml Other 150 ml 200 ml Output Urine Total 2700 ml 2000 ml 550 ml # Bowel Movements 0 0 Result Diagram: 10/12/1515 10/12/1515 Objective Remarks GENERAL: This is a frail unresponsive male in no distress with tracheostomy and feeding tube CARDIOVASCULAR: Regular rate and rhythm without murmurs, gallops, or rubs. RESPIRATORY: Clear to auscultation. Breath sounds equal bilaterally. No wheezes , rales, or rhonchi. GASTROINTESTINAL: Abdomen soft, non-tender, nondistended. Normal active bowel sounds MUSCULOSKELETAL: Multiple contractures NEURO: Eyes open, non-interactive Procedures 07/26- PEG replacement 07/29- right pigtail catheter placement for new pneumothorax Date of Insertion: Oct 05, 2015 A/P Assessment and Plan Hospital day #116 for this unfortunate gentleman who has been admitted to the hospital to being found unresponsive in a group home facility. Patient has acute on chronic respiratory failure requiring tracheostomy and pulmonary has been managing this. He is now off of antibiotics for pneumonia. He has Parkinson's disease which at baseline he is nonverbal and does not follow commands and has quite a few contractures and decubiti which are present on admission. He is quite malnourished requiring tube feeds. The patient's difficult to place due to long-term care needs and needs profile. Case management aware of barriers So discharge Discharge Planning Radha Reaves and is listed as his daughter in the contact information. I did call the number to discuss long-term options Felisha Naranjo MD Oct 12, 2015 13:06
[2015-10-12] MEDS: ONDANSETRON HCL 4 MG/2 ML VIAL IV PRN (16:11)
--- NOTE | 2015-10-12 16:57 | HHI.PR ---
Addendum To [facility] Progress Not Reason for addendum: Additonal documentation (patient seen and evaluated urgently at the bedside due to [facility] called secondary to respiratory distress with tube feedings coming out of his trachea and for drop in blood pressure. Patient is physically dyspneic and diaphoretic. Still feeds were held and a portal chest x-ray was done at the bedside stat, blood gas is pending, wide open normal saline bolus has been ordered and started. The [facility] team is at the bedside and I have spoken with the bottle capping machine operator. I have also spoken with the patient's daughter Radha by telephone and expressed concern that the patient's focal status is inappropriate giving his chronic debilitated status and today's change condition. I did express that a DO NOT RESUSCITATE status was most appropriate giving his long-term poor prognosis and poor reserve should further life-threatening conditions worsen. She said she call me back. Assessment and plan #1. Respiratory failure secondary to tube feedings and trachea. Continue with pulmonary toilet, hold tube feeds, follow-up chest x-ray , blood gas. #2. Hypotension blood pressure quite low and patient diaphoretic after the incident. Wide open IV fluids and current full CODE STATUS remains. cct 35 min) Felisha Naranjo MD Oct 12, 2015 16:57
[2015-10-12] MEDS ORDERED: SODIUM CHLOR 0.9% 1000 ML INJ 1,000 ML IV ONE (17:00)
--- NOTE | 2015-10-12 17:03 | RADRPT ---
EXAM DATE/TIME: 10/12/2015 16:24 [facility] COMPARISON: CHEST SINGLE AP, September 27, 2015, 5:19. CHEST SINGLE AP, October 05, 2015, 19:56. INDICATIONS : Dysphagia MEDICAL HISTORY : Patient non-responsive SURGICAL HISTORY : Patient non-responsive ENCOUNTER: Initial ACUITY: 4 - 6 days PAIN SCORE: Non-responsive. LOCATION: Bilateral chest FINDINGS: A single AP semierect view the chest was obtained and demonstrates a tracheostomy tube in place. Ther e are mild hazy alveolar opacities in both perihilar regions with no focal consolidation or effusion. The heart size is within normal limits. There overlying electrocardiogram leads. CONCLUSION: Mild hazy alveolar opacities in the perihilar regions which could indicate early pulm onary edema. Salazar Thurman MD on October 12, 2015 at 16:59 Board Certified Radiologist. This report was verified electronically.
[2015-10-12] MEDS: DEXT 5%-NACL 0.9% 1000 ML INJ 1,000 ML IV SCH (17:30)
[2015-10-12] MEDS ORDERED: GLUCAGON 1 MG/ML VIAL OTHER PRN (17:30)
[2015-10-12] MEDS: RESP: ALBUTEROL 2.5 MG/IPRATROPIUM 0.5 MG NEB (SCH) NEB ×2 (17:37→20:21)
--- NOTE | 2015-10-12 17:41 | HHI.CCPN ---
Subjective Remarks/Hospital Course 06/17: Pt is a 54 yr man with multiple medial problems including Parkinson's disease, advanced dementia, hyponatremia, anxiety, pneumonia, GERD, cognitive disorder, and multidrug resistant UTI- ESBL02/19/15 , who [facility]. Pt by report was found by staff in jail to be less alert and having respiratory difficultly and fevers. Pt was brought to ED adn placed on ventilator. His workup was inclusive of labs, chest xray and ct head and abd/pelvis. WBC 16.4, +UTI, lactic acid 4, troponin ,0.02, BUN/ cre 18/ 0.76. CT head 06/18/15: diffuse atrophy unchanged. No acute intracranial findings ct abd/ pelvis with IV contrast: 06/18/15 Conclusion: 1. Chronic nonspecific urinary bladder wall thickening. Bladder collapsed with Putnam catheter in place. 2.Chronic bilateral mid to lower zone groundglass opacity. 3. Nonobstructing left renal calculus. 4. Distended rectum Pt admitted and fluid and abx ordered. 06/18: Drowsy, easily arousable. On mechanical ventilation via tracheostomy. Tachypneic. Resting tremor noted. 06/19: Drowsy, arousable. On mechanical ventilation via tracheostomy. 06/20: Drowsy, arousable. Remains on mechanical ventilation via tracheostomy. We'll repeat blood cultures, UA and urine cultures. Fluconazole IV added in view of yeast in urine. 07/06: Reconsulted as patient return to the ventilator on a right ventricular due to tachypnea. Low-grade temperatures. Tolerating tube feeding. Extremity encephalopathic demented patient with difficult neurological examination. 07/07: Status post chest tube placement by IR for right pneumothorax 07/06. Afebrile. Tolerating tube feeds. Positive BM. Currently tachypneic on the ventilator. Does not appear to be any acute distress. 07/08: Afebrile. Tolerating tube feeding. He is comfortable currently on CPAP trials 11/10. Positive BM. 07/09: Afebrile. Tolerating tube feeding. Appears comfortable on T bar. Positive BM. 07/10: Afebrile. Eyes are open. Remained on T piece overnight. Tolerating tube feeding. 07/11: MAXIMUM TEMPERATURE 100. Currently 98.6. Eyes are open. On ACV overnight secondary to "tachypnea and sweating". Switching back to PSV trials today. Goal is T piece during daytime, CPAP at night. 07/12: No acute events overnight. On PSV 15/5 -attempt TP up to 6 hours today. No pneumothorax on chest x-ray 07/13: Placed back on full ventilator support for tachypnea. Otherwise clinically unchanged. No fever today 07/14: Patient was on T piece yesterday evening, placed back on PSV overnight, patient mechanical ventilation this morning. Patient appears to be struggling with mechanical ventilation. Patient placed back on PSV with improvement 07/15: Patient placed back on mechanical ventilation last evening due to respiratory rate. It was indicated patient was tachypnea can the 40s. Patient on mechanical ventilation this time with respiration rate mid 20s. Chest tube still in place without any output, chest x-ray still indicating resolution of pneumothorax. 07/16: Patient seen and examined today. Patient placed back on mechanical ventilation overnight due to respiratory rate. Even on mechanical ventilation patient has respiration rate in the 30s. Patient afebrile, blood pressure stable. Continue vent weaning 07/17: Patient seen and examined. Currently afebrile. Currently on CPAP 15/5 @ 40%. Patient is awake with open mouth resting in bed in no apparent acute distress. Tolerating tube feeding. 2 bowel movements. 07/18: No neurological changes. Afebrile. 2 bowel moments. Tolerating tube feeding. We'll attempt TP trials today. On CPAP since 07/15 07/19 No events overnight. On CPAP with PS: 10, PEEP: 5 and FIO2 35%. Afebrile. On no sedation. 07/20 No events overnight. Tolerating CPAP. Afebrile. 07/21: Remains on CPAP. Attempt T piece trial today. Afebrile. One bowel movement. Tolerating tube feeding. 07/22: Afebrile. Positive BM. Tolerating tube feeding. Noted switched tracheostomy to #6 Shiley cuffed fenestrated. Neurologically unchanged 07/23: Afebrile. Positive BM. Tolerating tube feeding. Questionable leak in exchange trach. Place back on a rate/ACV overnight. Insufflated seems to be doing better at the present time. Will check chest x-ray. Possible he might need #6 XLT versus replacement of chronic #8 Shiley. 07/24: Tolerating TP today, RR in low 30s patient appears comfortable. No acute events overnight 07/25: Remains off the ventilator more than 36 hours now. Intermittently tachypneic probably breathing. Chest x-ray was clear yesterday. No acute events reported overnight. PEG not functioning per RN 08/02: Patient was transferred back to critical care service due to continuing ventilator management, tachypnea. Patient clinical status with no significant change. Patient with low-grade fever 100.2, 08/03: Patient seen and examined today. No significant change in clinical status. Patient still with chronic tachypnea. Patient afebrile now. 08/04: Patient seen and examined today. No change in clinical status. Patient still continues to have chronic tachypnea. Patient afebrile. Continue vent weaning 08/05: Patient seen and examined today. Patient had chest tube removed yesterday , chest x-ray shows redevelopment of pneumothorax. Chest tube replaced. Otherwise, patient still on ventilator with tachypnea. Afebrile 08/06: Patient seen and examined today. Patient went to have chest tube placed, repeat chest x-ray did not indicate any pneumothorax. No overnight events. We' ll need to pursue LTAC placement 08/07 No events overnight. On ventilator via trach. Afebrile. 08/08 Patient tolerated CPAP x4 hrs yesterday. Afebrile. On no sedation. 08/09 No events overnight. Tolerated CPAP x 12 hrs yesterday. Afebrile. 08/10 Patient tolerated TP's x 12 hrs yesterday back on ACV overnight. 08/11 No events overnight, currently on TP's with 40% FIO2. Afebrile. 08/12 On CPAP 10/5. Tolerated Tpiece 3 hours earlier today. Afebrile. 08/13 On CPAP 10/5. Not tolerating CPAP as well over last few days and RT notes challenge with suctioning respiratory secretions adequately. Discussing with healthcare proxy regarding exchange trach to 8.0. 08/14 Nursing and RT staff having continued difficulty suctioning respiratory secretions via 6.0 tracheostomy. KAREN Garcia did not consent to stoma dilation and trach upsize yesterday but said she would call back and let me know but no return call. Contacted again today and left a message. Afebrile. On CPAP 10/5. Brow furrowing on exam, appears to be in pain but pain not localizable. Tolerating tube feeds, had BM yesterday 08/15 Not tolerating CPAP today. Contacted healthcare surrogate again and discussed need for trach change. She consented and trach was dilated and up- sized to 8.0 Distal XLT to facilitate pulmonary toilet and to address volume leak. 08/16 No events overnight. Remains on ventilator via trach. Afebrile. Tolerating TF. 08/17 No events overnight. Afebrile. 08/18 Patient tolerated CPAP x 4 hrs yesterday. Afebrile.On ventilator via trach. 08/19 On CPAP 25/06. Temp max 99.3 08/20 Stenotrophomonas in sputum, started on Levaquin per ID. Temp max 99.8. On CPAP 20/09. Tube feeds were held because PEG was clogged but now PEG is functioning. 08/21 No events overnight. Afebrile. Remains on ventilator via trach. Has been tolerating CPAP trials for last 2 days. 08/22 No events overnight. Afebrile , Has been on CPAP all night with PS: 20, PEEP; 5 and FIO2 35%. 08/23 No events overnight. Remains on CPAP, T:99.9 08/24 No events overnight. On CPAP PS 10, PEEP; 5 and FIO2 35% overnight. Afebrile. 08/25 No events overnight. Afebrile. On CPAP overnight with PS 8, PEEP: 5 and FIO2 35%, afebrile. Tolerating TF. 08/26 Tolerating Tpiece. 08/27 Tolerated Tpiece yesterday and overnight. However this evening desaturated and was placed back on CPAP. Dr. Mistry attempted to update daughter Radha Foreman and discuss his overall poor prognosis for recovery, but call got disconnected midway through call and could not reach her back 08/28 On PSV 10/5 40% today. Afebrile. 08/29 On CPAP overnight. Now on Tpiece 70% per pulmonology. Increased yellow secretions noted. Temp max 99.1 Nursing staff expresses concern that he appears uncomfortable during all nursing care. Called elsa Garcia to update , no answer, left message to call me. 08/30: On CPAP overnight. Currently on T piece at 45%. Currently afebrile. Positive BM. Tolerating tube feeding. 08/31: On CPAP overnight. Will return T piece at 35%. MAXIMUM TEMPERATURE 99.6. 5 bowel movements. Tolerating tube feeds. Neurological examination unchanged. 09/01: Tmax 99.2. Currently afebrile. Currently in TPs at 35%. 7 bowel movement overnight. Tolerating tube feeding. Subjective: 09/19: Ciarra called secondary to aspiration on Gen. medical floor. Transfer to ICU and placed on mechanical ventilation. ABG shows CO2 retention. Etc. revealed no acute cardiac 20 finds however copious message to feed suctioned from trach tube 09/20 No events overnight. Afebrile. On ACV with RR 16, TV 500, PEEP: 5 and FIO2 40%. 09/21 No events overnight. Afebrile. 09/22 No events overnight. Tolerated CPAP all day yesterday with PS 12, PEEP:5 and FIO2 35%. Afebrile. 09/23 No events overnight. On no sedation Tolerated CPAP yesterday. Had T:100.3 last night. 09/24 Patient tolerated TP's x 6 hrs yesterday On CPAP 12/5 with 35% FIO2 overnight. Afebrile. 09/25 No events overnight. On CPAP overnight and TP's during day. Tolerating tube feeds. 10/11 Reconsult: Ciarra was called as patient was found hypotensive with SBP 80' s and tube feeds coming from trach site. Patient is receiving 1L bolus NS and STAT CXR showed mild pulm edema. On arrival to ICU patient was connected to ventilator ( On ACV RR 16, TV 500, PEEP:5 and FIO2 40% with sats 95%. Current BP 125/91 , P:81 Objective - Vital Signs Date Time Temp Pulse Resp B/P Pulse Ox O2 Delivery O2 Flow Rate FiO2 10/12/15 16:43 98 T-piece 6.00 50 10/12/15 16:00 95.9 72 18 94/68 Intake and Output 10/11/15 10/11/15 10/12/15 08:00 16:00 00:00 Intake Total 1108 ml 2813 ml Output Total 2700 ml 2000 ml Balance 1108 ml -2700 ml 813 ml Result Diagram: 10/12/15 0915 10/12/15 0915 Other Results Laboratory Tests Test 10/12/15 09:15 White Blood Count 8.9 TH/MM3 Red Blood Count 3.95 MIL/MM3 Hemoglobin 10.6 GM/DL Hematocrit 32.5 % Mean Corpuscular Volume 82.3 FL Mean Corpuscular Hemoglobin 26.7 PG Mean Corpuscular Hemoglobin 32.4 % Concent Red Cell Distribution Width 17.1 % Platelet Count 129 TH/MM3 Mean Platelet Volume 9.2 FL Neutrophils (%) (Auto) 74.9 % Lymphocytes (%) (Auto) 14.8 % Monocytes (%) (Auto) 6.7 % Eosinophils (%) (Auto) 3.1 % Basophils (%) (Auto) 0.5 % Neutrophils # (Auto) 6.7 TH/MM3 Lymphocytes # (Auto) 1.3 TH/MM3 Monocytes # (Auto) 0.6 TH/MM3 Eosinophils # (Auto) 0.3 TH/MM3 Basophils # (Auto) 0.0 TH/MM3 CBC Comment AUTO DIFF Differential Total Cells 100 Counted Neutrophils % (Manual) 74 % Band Neutrophils % 6 % Lymphocytes % 16 % Monocytes % 2 % Eosinophils % 2 % Neutrophils # (Manual) 7.1 TH/MM3 Differential Comment FINAL DIFF MANUAL Platelet Estimate LOW Platelet Morphology Comment NORMAL Sodium Level 135 MEQ/L Potassium Level 4.4 MEQ/L Chloride Level 96 MEQ/L Carbon Dioxide Level 35.0 MEQ/L Anion Gap 4 MEQ/L Blood Urea Nitrogen 11 MG/DL Creatinine 0.25 MG/DL Estimat Glomerular Filtration 389 ML/MIN Rate Random Glucose 76 MG/DL Calcium Level 8.9 MG/DL Imaging Last Impressions Chest X-Ray 10/12/15 0000 Signed Impressions: Service Date/Time: Monday, October 12, 2015 16:24 - CONCLUSION: Mild hazy alveolar opacities in the perihilar regions which could indicate early pulmonary edema. Salazar Thurman MD Renal Ultrasound 10/07/15 0000 Signed Impressions: Service Date/Time: Wednesday, October 07, 2015 18:29 - CONCLUSION: 1. No acute findings. 3.6 cm left renal cyst. Putnam catheter in bladder. Amaury Ellsworth MD Abdomen X-Ray 09/21/15 0000 Signed Impressions: Service Date/Time: Monday, September 21, 2015 11:31 - CONCLUSION: Normal bowel gas pattern. Tai Taylor Jr., MD Tunnelled Chest Tube Removal 08/05/15 1100 Signed Impressions: Service Date/Time: Wednesday, August 05, 2015 11:00 - CONCLUSION: Uncomplicated chest tube removal. Blaine Jackson MD Chest Tube Change 07/31/15 0000 Signed Impressions: Service Date/Time: Friday, July 31, 2015 14:34 - CONCLUSION: Uncomplicated reposition of previously placed chest tube as above. Blaine Jackson MD Chest Tube Insertion 07/30/15 0000 Signed Impressions: Service Date/Time: July 14:50 - CONCLUSION: Uncomplicated chest tube placement as above. Blaine Jackson MD Catheter Change 07/27/15 0000 Signed Impressions: Service Date/Time: Monday, July 27, 2015 14:43 - CONCLUSION: Uncomplicated gastrostomy tube exchange as above. Blaine Jackson MD Chest CT 07/11/15 Signed Impressions: Service Date/Time: Saturday, July 11, 2015 09:49 - CONCLUSION: Scattered patchy densities significantly improved from previous study. Tiny anterior right basilar pneumothorax. Right-sided chest tube in good position. Néstor Matamoros MD Head CT 06/18/151902 Signed Impressions: Service Date/Time: June 19:31 - CONCLUSION: Diffuse atrophy unchanged. No acute intracranial findings. Kush Briscoe MD Abdomen/Pelvis CT 06/18/151902 Signed Impressions: Service Date/Time: June 19:36 - CONCLUSION: 1. Chronic nonspecific urinary bladder wall thickening. Bladder collapsed with Putnam catheter in place. 2. Chronic bilateral mid to lower lung zone groundglass opacity. 3. Nonobstructing left renal calculus. 4. Distended rectum. Kush Briscoe MD Objective Remarks GENERAL: 54-year-old male, cachectic, debilitated with contractures on ventilator via trach. HEENT: NC/AT. PERRL. MMM. OP without erythema or exudates NECK: No JVD. Supple. 8.0 Distal XLT trach in place CARDIAC: RRR. S1/S2. No S4. No murmurs, clicks gallops or rubs. LUNGS: B/L eqal air entry with few coarse BS ABDOMEN: S/NT/ND. Positive BS EXTREMITIES: 1+ dependent pedal edema. Contractures and deformities of fingers. Stage III coccyx/sacral decubitus ulcer NEUROLOGY: Patient with significant contractures of the bilat lower extremity, upper extremities. Eyes open spontaneously. Temporal and facial muscle wasting , muscular atrophy all extremities. Procedures 07/26- PEG replacement 07/29- right pigtail catheter placement for new pneumothorax Date of Insertion: Oct 05, 2015 A/P Assessment and Plan Neuro/Psych: Parkinson's disease Cognitive disorder not otherwise specified Chronic encephalopathy Dementia Depression On no sedation, monitor neuro status CT head 06/18/15: - diffuse atrophy unchanged. No acute intracranial findings Continue Sinemet 25/100 q8 via PEG, Seroquel 50 mg twice a day, olanzapine 5 mg a night, Klonopin 2 mg every 8 hours, Paxil 20 daily Continue Lortab when necessary pain and fentanyl patch 50 g every 3 days for pain management. Fentanyl bolus prn breakthrough pain or if needed for turning/ nursing care/etc. Resp: Acute on chronic respiratory failure Chronic trach #8 Shiley distal XLT Pneumonia - resolved Right pneumothorax status post pigtail catheter 2 (resolved) Continue with vent support keep sat >92% Ventilator bundle, pulm toilet, trach care, Check ABG Pulmonary Dr. Restrepo following. On Prednisone 60mg daily Exchanged to 8 Distal XLT on 08/15 to facilitate suctioning, trach care. Bronchodilators ( DuoNeb) CXR possible early pulm edema Cardiac History of orthostasis History of CAD History dyslipidemia History of hypertension Continue Midodrine 5 mg BID Monitor HR and BP keep MAP>65mmHg. Check Lactic acid GI: Chronic moderate protein energy malnutrition Dysphagia Status post PEG Internal hemorrhoids Gastroesophageal reflux disease - Hold TF check KUB r/o ileus - On Prevacid 30 mg per PEG tube daily for GERD FEN/Renal: Nonobstructing left renal calculus - Monitor renal function, I/O's. electrolytes replacement per protocol. -Place on D5NS@50ml/hr ID: 09/21 Urine cx: Pseudomonas ? colonized 09/19 Sputum cx: Pseudomonas, Kleb pneumonia ESBL pos Candiduria (cele tropicalis urine cx 08/17) ESBL positive Klebsiella/Pseudomonas pneumonia Stenotrophomonas in sputum 08/17 MRSA colonization sepsis UTI Klebsiella ESBL positive (has been treated) Off abx per ID , place on Zosyn and panculture ( Blood cx x2 sets, sputum cx, UA with cx if indicated) Monitor for signs of infections ( Fever, WBC) ID follow up Pertinent cultures 09/21 Urine cx: Pseudomonas 09/19 Sputum cx: Pseudomonas, Kleb pneumonia ESBL pos Urine cx 08/17 - cele tropicalis Blood culture 08/17 negative sputum culture 08/17 - pseudomonas and Stenotrophomonas maltophilia. Urine culture: 08/02 Klebsiella pneumonia ESBL positive Urine culture: 08/02 Cele Tropicalis, C. Glabrata Sputum culture: 08/02 Pseudomonas, Klebsiella pneumonia ESBL positive Blood culture: 08/02 yeast species, Cele glabrata, Cele tropicalis - History of Multidrug resistant UTI- ESBL 02/19/15 , MRSA + 03/20/15 - Cele glabrata in urine 03/19/15 - Rechecked blood, sputum and urine cultures 07/06 no growth - 06/17 - blood cultures 2 - CONS/staph epi - 06/17 - sputum - ESBL positive Klebsiella/Pseudomonas Treated 15 days with tobramycin aerosols twice a day. - 06/17 - urine - C. glabrata/tropicalis - treated with Diflucan Endo: On SSI ( medium) with accuchecks Q6. Levemir 7u Q12 Heme Normocytic Anemia - Monitor CBC MSK Bilateral lower extremity Contractures Stage III sacral decubitus present on admission - Wound care and PT on case Prophylaxis - GI - Prevacid - DVT - SCDs/ Lovenox. ACCESS: PIVs CCT 35 mins Antonio Carr MD Oct 12, 2015 17:41
--- NOTE | 2015-10-12 18:01 | RADRPT ---
EXAM DATE/TIME: 10/12/2015 17:37 [facility] COMPARISON: ABDOMEN KUB ONLY, September 21, 2015, 11:31. INDICATIONS : Evaluate for ileus. MEDICAL HISTORY : Patient non-responsive SURGICAL HISTORY : Patient non-responsive ENCOUNTER: Initial ACUITY: 1 day PAIN SCORE: Non-responsive. LOCATION: Bilateral abdomen. FINDINGS: 2 supine views of the abdomen was performed. Both views are rotated. The abdominal bowel gas pattern is normal. No abnormal masses, calcifications, or organomegaly is seen. A gastrostomy tube is pres ent. The osseous structures are unremarkable. CONCLUSION: 1. Gastrostomy tube in place 2. Unremarkable bowel gas pattern. Salazar Thurman MD on October 12, 2015 at 17:53 Board Certified Radiologist. This report was verified electronically.
[2015-10-12 18:24] LABS: BLOOD GAS BASE EXCESS 5.8 mmol/L (-2-2); BLOOD GAS CARBOXYHEMOGLOBIN 1.4 % (0-4); BLOOD GAS HCO3 31 mmol/L (22-26); BLOOD GAS METHEMOGLOBIN 0.7 % (0-2); BLOOD GAS O2 HGB SATURATION 90 % (90-100); BLOOD GAS OXYGEN CONTENT 13.9 Vol % (12.0-20.0); BLOOD GAS PCO2 59 mmHg (38-42); BLOOD GAS PO2 71 mmHg (61-120); CRITICAL VALUE YES; DRAW SITE LT RADIAL; FIO2 40 %; NUMBER OF ARTERIAL PUNCTURES 1; OXYGEN DEVICE VENTILATOR; TEMP CORR TO 98.6; ULNAR PULSE PRESENT; VENT SETTINGS 500/AC16/PEEP5
[2015-10-12 18:24] LABS: AUTOMATED NEUTROPHIL # 9.5 TH/MM3 (1.8-7.7); BASOPHIL % 0.1 % (0.0-2.0); HEMATOCRIT 35.8 % (39.0-51.0); HEMO FLAGS DIFF FINAL; LYMPH % 4.1 % (9.0-44.0); LYMPHOCYTE # 0.4 TH/MM3 (1.0-4.8); MEAN CELL VOLUME 83.5 FL (80.0-100.0); MEAN CORPUSCULAR HEMOGLOBIN 26.7 PG (27.0-34.0); MONO % 1.4 % (0.0-8.0); NEUT % 94.4 % (16.0-70.0); PLATELET COUNT 155 TH/MM3 (150-450); RED BLOOD COUNT 4.29 MIL/MM3 (4.50-5.90); RED CELL DISTRIBUTION WIDTH 17.4 % (11.6-17.2); WHITE BLOOD COUNT 10.1 TH/MM3 (4.0-11.0)
[2015-10-12 18:25] LABS: STAT NO
[2015-10-12 18:34] LABS: INTERNATIONAL NORMALIZED RATIO 1.5 RATIO; PROTHROMBIN TIME - PATIENT 15.9 SEC (9.8-11.4)
[2015-10-12 18:44] LABS: BICARBONATE 33.9 MEQ/L (21.0-32.0); MAGNESIUM 1.7 MG/DL (1.5-2.5)
[2015-10-12] MEDS: PIPERACIL-TAZO 3.375 GM PREMIX 50 ML IV SCH (19:02)
[2015-10-12 19:31] LABS: BACTERIA, URINE FEW /hpf; BLOOD, URINE TRACE (NEG); COMMENT (UR) CATH-CULTURE IND; CULTURE IF INDICATED CATH CULTURE IND; GLUCOSE,URINE NEG (NEG); HYALINE CAST, URINE 1 /lpf (RARE); KETONE, URINE NEG (NEG); MUCUS URINE FEW /lpf (OCC); NITRITE,URINE NEG (NEG); URINE COLOR YELLOW (YELLW/STRAW)
[2015-10-12] MEDS: ENOXAPARIN SODIUM 40 MG/0.4 ML SYRINGE SQ SCH (21:06)
[2015-10-12] MEDS: OLANZapine 5 MG TAB GT SCH (21:07)
[2015-10-13] VITALS (19 sets, daily range): BP systolic 79–113; BP diastolic 51–69; PULSE 57–83; RESP 17–20; TEMP 97.6–98.3; O2SAT 95–98
[2015-10-13] MEDS: PIPERACIL-TAZO 3.375 GM PREMIX 50 ML IV SCH ×2 (01:39→07:36)
[2015-10-13] MEDS: RESP: ALBUTEROL 2.5 MG/IPRATROPIUM 0.5 MG NEB (SCH) NEB ×4 (02:28→19:42)
--- NOTE | 2015-10-13 04:25 | RADRPT ---
EXAM DATE/TIME: 10/13/2015 03:51 [facility] COMPARISON: CHEST SINGLE AP, October 12, 2015, 16:24. INDICATIONS : Infiltrate. Short of breath. MEDICAL HISTORY : Hypertension. Cardiovascular disease. Diabetic. SURGICAL HISTORY : Tracheostomy. ENCOUNTER: Subsequent ACUITY: 1 week PAIN SCORE: Non-responsive. LOCATION: Bilateral chest FINDINGS: Mild, patchy air space consolidation seen of the left mid to lower lung. There is mild, chronic bilat eral interstitial lung disease. No pleural effusion. No pneumothorax. Heart size stable, within normal limits. Trach collar again noted. CONCLUSION: Mild left base consolidation superimposed on chronic interstitial lung disease, not significantly keshia nged. Erlin Escobar MD on October 13, 2015 at 4:23 Board Certified Radiologist. This report was verified electronically.
[2015-10-13 04:29] LABS: BLOOD GAS BASE EXCESS 7.9 mmol/L (-2-2); BLOOD GAS CARBOXYHEMOGLOBIN 1.5 % (0-4); BLOOD GAS HCO3 32 mmol/L (22-26); BLOOD GAS METHEMOGLOBIN 0.8 % (0-2); BLOOD GAS O2 HGB SATURATION 91 % (90-100); BLOOD GAS OXYGEN CONTENT 12.8 Vol % (12.0-20.0); BLOOD GAS PCO2 48 mmHg (38-42); BLOOD GAS PO2 68 mmHg (61-120); CRITICAL VALUE NO; DRAW SITE RT RADIAL; FIO2 40 %; NUMBER OF ARTERIAL PUNCTURES 1; OXYGEN DEVICE VENTILATOR; STAT NO; TEMP CORR TO 98.6; ULNAR PULSE PRESENT; VENT SETTINGS AC 500/18/5 PEEP
[2015-10-13] MEDS: CARBIDOPA/LEVODOPA 25 MG/100 MG TAB GT SCH ×3 (05:20→21:02)
[2015-10-13] MEDS: INSULIN NovoLIN REGULAR SUPPLEMENTAL SCALE SQ SCH ×4 (05:20→17:50)
[2015-10-13] MEDS: clonazePAM 1 MG TAB PO SCH ×3 (05:20→21:02)
[2015-10-13 06:00] LABS: BASOPHIL % 0.1 % (0.0-2.0); EOSINOPHIL # 0.1 TH/MM3 (0-0.4); EOSINOPHIL % 0.9 % (0.0-4.0); HEMATOCRIT 31.8 % (39.0-51.0); HEMO FLAGS DIFF FINAL; LYMPH % 8.3 % (9.0-44.0); MEAN CORPUSCULAR HEMOGLOBIN 26.3 PG (27.0-34.0); MEAN CORPUSCULAR HGB CONC 32.1 % (32.0-36.0); NEUT % 83.7 % (16.0-70.0); PLATELET COUNT 144 TH/MM3 (150-450); RED BLOOD COUNT 3.88 MIL/MM3 (4.50-5.90); RED CELL DISTRIBUTION WIDTH 17.2 % (11.6-17.2); WHITE BLOOD COUNT 11.9 TH/MM3 (4.0-11.0)
[2015-10-13 06:12] LABS: BICARBONATE 33.1 MEQ/L (21.0-32.0); MAGNESIUM 1.8 MG/DL (1.5-2.5); POTASSIUM 3.9 MEQ/L (3.5-5.1)
[2015-10-13] MEDS: PARoxetine HCL 20 MG TAB G-TUBE SCH (07:36)
[2015-10-13] MEDS: MIDODRINE 5 MG TAB G-TUBE SCH ×2 (07:36→21:03)
[2015-10-13] MEDS: LACTOBACILLUS ACIDOPHILUS TAB PO SCH ×3 (07:36→17:48)
[2015-10-13] MEDS: QUEtiapine FUMARATE 25 MG TAB G-TUBE SCH ×2 (07:36→21:03)
[2015-10-13] MEDS: predniSONE 20 MG TAB PO SCH (07:36)
[2015-10-13] MEDS: LANSOPRAZOLE SOLUTAB 30 MG TAB NG SCH (07:36)
[2015-10-13] MEDS: GABAPENTIN 300 MG CAP G-TUBE SCH ×2 (07:36→21:03)
[2015-10-13] MEDS: SODIUM CHLORIDE 0.9% FLUSH 5 ML FLUSH IVF PRN (07:37)
[2015-10-13] MEDS: SODIUM CHLORIDE 0.9% FLUSH 5 ML FLUSH IVF SCH ×2 (07:37→21:03)
[2015-10-13] MEDS: CHLORHEXIDINE 0.12% (ORAL KIT) 15 ML CUP MT SCH ×2 (07:37→20:58)
[2015-10-13] MEDS: ARTIFICIAL TEARS OPTH SOLN 15 ML BTL EACH EYE SCH ×3 (07:37→17:49)
--- NOTE | 2015-10-13 08:27 | HHI.CCPN ---
Subjective Remarks/Hospital Course 06/17: Pt is a 54 yr man with multiple medial problems including Parkinson's disease, advanced dementia, hyponatremia, anxiety, pneumonia, GERD, cognitive disorder, and multidrug resistant UTI- ESBL02/19/15 , who resides in a [facility]. Pt by report was found by staff in [facility] to be less alert and having respiratory difficultly and fevers. Pt was brought to ED adn placed on ventilator. His workup was inclusive of labs, chest xray and ct head and abd/pelvis. WBC 16.4, +UTI, lactic acid 4, troponin ,0.02, BUN/ cre 18/ 0.76. CT head 06/18/15: diffuse atrophy unchanged. No acute intracranial findings ct abd/ pelvis with IV contrast: 06/18/15 Conclusion: 1. Chronic nonspecific urinary bladder wall thickening. Bladder collapsed with Putnam catheter in place. 2.Chronic bilateral mid to lower zone groundglass opacity. 3. Nonobstructing left renal calculus. 4. Distended rectum Pt admitted and fluid and abx ordered. 06/18: Drowsy, easily arousable. On mechanical ventilation via tracheostomy. Tachypneic. Resting tremor noted. 06/19: Drowsy, arousable. On mechanical ventilation via tracheostomy. 06/20: Drowsy, arousable. Remains on mechanical ventilation via tracheostomy. We'll repeat blood cultures, UA and urine cultures. Fluconazole IV added in view of yeast in urine. 07/06: Reconsulted as patient return to the ventilator on a right ventricular due to tachypnea. Low-grade temperatures. Tolerating tube feeding. Extremity encephalopathic demented patient with difficult neurological examination. 07/07: Status post chest tube placement by IR for right pneumothorax 07/06. Afebrile. Tolerating tube feeds. Positive BM. Currently tachypneic on the ventilator. Does not appear to be any acute distress. 07/08: Afebrile. Tolerating tube feeding. He is comfortable currently on CPAP trials 11/10. Positive BM. 07/09: Afebrile. Tolerating tube feeding. Appears comfortable on T bar. Positive BM. 07/10: Afebrile. Eyes are open. Remained on T piece overnight. Tolerating tube feeding. 07/11: MAXIMUM TEMPERATURE 100. Currently 98.6. Eyes are open. On ACV overnight secondary to "tachypnea and sweating". Switching back to PSV trials today. Goal is T piece during daytime, CPAP at night. 07/12: No acute events overnight. On PSV 15/5 -attempt TP up to 6 hours today. No pneumothorax on chest x-ray 07/13: Placed back on full ventilator support for tachypnea. Otherwise clinically unchanged. No fever today 07/14: Patient was on T piece yesterday evening, placed back on PSV overnight, patient mechanical ventilation this morning. Patient appears to be struggling with mechanical ventilation. Patient placed back on PSV with improvement 07/15: Patient placed back on mechanical ventilation last evening due to respiratory rate. It was indicated patient was tachypnea can the 40s. Patient on mechanical ventilation this time with respiration rate mid 20s. Chest tube still in place without any output, chest x-ray still indicating resolution of pneumothorax. 07/16: Patient seen and examined today. Patient placed back on mechanical ventilation overnight due to respiratory rate. Even on mechanical ventilation patient has respiration rate in the 30s. Patient afebrile, blood pressure stable. Continue vent weaning 07/17: Patient seen and examined. Currently afebrile. Currently on CPAP 15/5 @ 40%. Patient is awake with open mouth resting in bed in no apparent acute distress. Tolerating tube feeding. 2 bowel movements. 07/18: No neurological changes. Afebrile. 2 bowel moments. Tolerating tube feeding. We'll attempt TP trials today. On CPAP since 07/15 07/19 No events overnight. On CPAP with PS: 10, PEEP: 5 and FIO2 35%. Afebrile. On no sedation. 07/20 No events overnight. Tolerating CPAP. Afebrile. 07/21: Remains on CPAP. Attempt T piece trial today. Afebrile. One bowel movement. Tolerating tube feeding. 07/22: Afebrile. Positive BM. Tolerating tube feeding. Noted switched tracheostomy to #6 Shiley cuffed fenestrated. Neurologically unchanged 07/23: Afebrile. Positive BM. Tolerating tube feeding. Questionable leak in exchange trach. Place back on a rate/ACV overnight. Insufflated seems to be doing better at the present time. Will check chest x-ray. Possible he might need #6 XLT versus replacement of chronic #8 Shiley. 07/24: Tolerating TP today, RR in low 30s patient appears comfortable. No acute events overnight 07/25: Remains off the ventilator more than 36 hours now. Intermittently tachypneic probably breathing. Chest x-ray was clear yesterday. No acute events reported overnight. PEG not functioning per RN 08/02: Patient was transferred back to critical care service due to continuing ventilator management, tachypnea. Patient clinical status with no significant change. Patient with low-grade fever 100.2, 08/03: Patient seen and examined today. No significant change in clinical status. Patient still with chronic tachypnea. Patient afebrile now. 08/04: Patient seen and examined today. No change in clinical status. Patient still continues to have chronic tachypnea. Patient afebrile. Continue vent weaning 08/05: Patient seen and examined today. Patient had chest tube removed yesterday , chest x-ray shows redevelopment of pneumothorax. Chest tube replaced. Otherwise, patient still on ventilator with tachypnea. Afebrile 08/06: Patient seen and examined today. Patient went to have chest tube placed, repeat chest x-ray did not indicate any pneumothorax. No overnight events. We' ll need to pursue LTAC placement 08/07 No events overnight. On ventilator via trach. Afebrile. 08/08 Patient tolerated CPAP x4 hrs yesterday. Afebrile. On no sedation. 08/09 No events overnight. Tolerated CPAP x 12 hrs yesterday. Afebrile. 08/10 Patient tolerated TP's x 12 hrs yesterday back on ACV overnight. 08/11 No events overnight, currently on TP's with 40% FIO2. Afebrile. 08/12 On CPAP 10/5. Tolerated Tpiece 3 hours earlier today. Afebrile. 08/13 On CPAP 10/5. Not tolerating CPAP as well over last few days and RT notes challenge with suctioning respiratory secretions adequately. Discussing with healthcare proxy regarding exchange trach to 8.0. 08/14 Nursing and RT staff having continued difficulty suctioning respiratory secretions via 6.0 tracheostomy. KAREN Garcia did not consent to stoma dilation and trach upsize yesterday but said she would call back and let me know but no return call. Contacted again today and left a message. Afebrile. On CPAP 10/5. Brow furrowing on exam, appears to be in pain but pain not localizable. Tolerating tube feeds, had BM yesterday 08/15 Not tolerating CPAP today. Contacted healthcare surrogate again and discussed need for trach change. She consented and trach was dilated and up- sized to 8.0 Distal XLT to facilitate pulmonary toilet and to address volume leak. 08/16 No events overnight. Remains on ventilator via trach. Afebrile. Tolerating TF. 08/17 No events overnight. Afebrile. 08/18 Patient tolerated CPAP x 4 hrs yesterday. Afebrile.On ventilator via trach. 08/19 On CPAP 25/06. Temp max 99.3 08/20 Stenotrophomonas in sputum, started on Levaquin per ID. Temp max 99.8. On CPAP 20/09. Tube feeds were held because PEG was clogged but now PEG is functioning. 08/21 No events overnight. Afebrile. Remains on ventilator via trach. Has been tolerating CPAP trials for last 2 days. 08/22 No events overnight. Afebrile , Has been on CPAP all night with PS: 20, PEEP; 5 and FIO2 35%. 08/23 No events overnight. Remains on CPAP, T:99.9 08/24 No events overnight. On CPAP PS 10, PEEP; 5 and FIO2 35% overnight. Afebrile. 08/25 No events overnight. Afebrile. On CPAP overnight with PS 8, PEEP: 5 and FIO2 35%, afebrile. Tolerating TF. 08/26 Tolerating Tpiece. 08/27 Tolerated Tpiece yesterday and overnight. However this evening desaturated and was placed back on CPAP. Dr. Mistry attempted to update daughter Radha Foreman and discuss his overall poor prognosis for recovery, but call got disconnected midway through call and could not reach her back 08/28 On PSV 10/5 40% today. Afebrile. 08/29 On CPAP overnight. Now on Tpiece 70% per pulmonology. Increased yellow secretions noted. Temp max 99.1 Nursing staff expresses concern that he appears uncomfortable during all nursing care. Called elsa Garcia to update , no answer, left message to call me. 08/30: On CPAP overnight. Currently on T piece at 45%. Currently afebrile. Positive BM. Tolerating tube feeding. 08/31: On CPAP overnight. Will return T piece at 35%. MAXIMUM TEMPERATURE 99.6. 5 bowel movements. Tolerating tube feeds. Neurological examination unchanged. 09/01: Tmax 99.2. Currently afebrile. Currently in TPs at 35%. 7 bowel movement overnight. Tolerating tube feeding. Subjective: 09/19: Ciarra called secondary to aspiration on Gen. medical floor. Transfer to ICU and placed on mechanical ventilation. ABG shows CO2 retention. Etc. revealed no acute cardiac 20 finds however copious message to feed suctioned from trach tube 09/20 No events overnight. Afebrile. On ACV with RR 16, TV 500, PEEP: 5 and FIO2 40%. 09/21 No events overnight. Afebrile. 09/22 No events overnight. Tolerated CPAP all day yesterday with PS 12, PEEP:5 and FIO2 35%. Afebrile. 09/23 No events overnight. On no sedation Tolerated CPAP yesterday. Had T:100.3 last night. 09/24 Patient tolerated TP's x 6 hrs yesterday On CPAP 12/5 with 35% FIO2 overnight. Afebrile. 09/25 No events overnight. On CPAP overnight and TP's during day. Tolerating tube feeds. 10/11 Reconsult: Ciarra was called as patient was found hypotensive with SBP 80' s and tube feeds coming from trach site. Patient is receiving 1L bolus NS and STAT CXR showed mild pulm edema. On arrival to ICU patient was connected to ventilator ( On ACV RR 16, TV 500, PEEP:5 and FIO2 40% with sats 95%. Current BP 125/91 , P:81 10/12 Patient remains on ventilator overnight. Borderline low BP with MAP ranges 67-72. Afebrile. On no sedation. Objective - Vital Signs Date Time Temp Pulse Resp B/P Pulse Ox O2 Delivery O2 Flow Rate FiO2 10/13/15 06:00 70 10/13/15 05:36 96 40 10/13/15 04:00 97.9 18 86/57 10/12/15 19:00 Mechanical Ventilator 10/12/15 16:43 6.00 Intake and Output 10/12/15 10/12/15 10/13/15 08:00 16:00 00:00 Intake Total 1173 ml 1222 ml 204 ml Output Total 550 ml 1100 ml Balance 623 ml 1222 ml -896 ml Result Diagram: 10/13/15 0452 10/13/15 0452 Other Results Laboratory Tests Test 10/12/15 10/12/15 10/12/15 10/12/15 09:15 17:30 17:51 17:57 White Blood Count 8.9 TH/MM3 10.1 TH/MM3 Red Blood Count 3.95 MIL/MM3 4.29 MIL/MM3 Hemoglobin 10.6 GM/DL 11.5 GM/DL Hematocrit 32.5 % 35.8 % Mean Corpuscular Volume 82.3 FL 83.5 FL Mean Corpuscular Hemoglobin 26.7 PG 26.7 PG Mean Corpuscular Hemoglobin 32.4 % 32.0 % Concent Red Cell Distribution Width 17.1 % 17.4 % Platelet Count 129 TH/MM3 155 TH/MM3 Mean Platelet Volume 9.2 FL 8.8 FL Neutrophils (%) (Auto) 74.9 % 94.4 % Lymphocytes (%) (Auto) 14.8 % 4.1 % Monocytes (%) (Auto) 6.7 % 1.4 % Eosinophils (%) (Auto) 3.1 % 0.0 % Basophils (%) (Auto) 0.5 % 0.1 % Neutrophils # (Auto) 6.7 TH/MM3 9.5 TH/MM3 Lymphocytes # (Auto) 1.3 TH/MM3 0.4 TH/MM3 Monocytes # (Auto) 0.6 TH/MM3 0.1 TH/MM3 Eosinophils # (Auto) 0.3 TH/MM3 0.0 TH/MM3 Basophils # (Auto) 0.0 TH/MM3 0.0 TH/MM3 CBC Comment AUTO DIFF DIFF FINAL Differential Total Cells 100 Counted Neutrophils % (Manual) 74 % Band Neutrophils % 6 % Lymphocytes % 16 % Monocytes % 2 % Eosinophils % 2 % Neutrophils # (Manual) 7.1 TH/MM3 Differential Comment FINAL DIFF MANUAL Platelet Estimate LOW Platelet Morphology Comment NORMAL Sodium Level 135 MEQ/L 137 MEQ/L Potassium Level 4.4 MEQ/L 5.0 MEQ/L Chloride Level 96 MEQ/L 98 MEQ/L Carbon Dioxide Level 35.0 MEQ/L 33.9 MEQ/L Anion Gap 4 MEQ/L 5 MEQ/L Blood Urea Nitrogen 11 MG/DL 11 MG/DL Creatinine 0.25 MG/DL 0.37 MG/DL Estimat Glomerular Filtration 389 ML/MIN 247 ML/MIN Rate Random Glucose 76 MG/DL 115 MG/DL Calcium Level 8.9 MG/DL 8.7 MG/DL Urine Color YELLOW Urine Turbidity HAZY Urine pH 7.0 Urine Specific [place] 1.013 Urine Protein TRACE mg/dL Urine Glucose (UA) NEG mg/dL Urine Ketones NEG mg/dL Urine Occult Blood TRACE Urine Nitrite NEG Urine Bilirubin NEG Urine Urobilinogen LESS THAN 2.0 MG/DL Urine Leukocyte Esterase LARGE Urine RBC 8 /hpf Urine WBC 61 /hpf Urine WBC Clumps FEW Urine Bacteria FEW /hpf Urine Hyaline Casts 1 /lpf Urine Mucus FEW /lpf Urine Yeast with Hyphae MOD Urine Yeast (Budding) FEW Microscopic Urinalysis Comment CATH-CULTURE IND Prothrombin Time 15.9 SEC Prothromb Time International 1.5 RATIO Ratio Magnesium Level 1.7 MG/DL Lactic Acid Level 2.4 mmol/L Test 10/12/15 10/13/15 10/13/15 10/13/15 18:06 00:43 04:15 04:52 Blood Gas Puncture Site LT RADIAL RT RADIAL Blood Gas Patient Temperature 98.6 98.6 Blood Gas HCO3 31 mmol/L 32 mmol/L Blood Gas Base Excess 5.8 mmol/L 7.9 mmol/L Blood Gas Oxygen Saturation 90 % 91 % Arterial Blood pH 7.35 7.45 Arterial Blood Partial 59 mmHg 48 mmHg Pressure CO2 Arterial Blood Partial 71 mmHg 68 mmHg Pressure O2 Arterial Blood Oxygen Content 13.9 Vol % 12.8 Vol % Arterial Blood 1.4 % 1.5 % Carboxyhemoglobin Arterial Blood Methemoglobin 0.7 % 0.8 % Blood Gas Hemoglobin 11.0 G/DL 10.0 G/DL Oxygen Delivery Device VENTILATOR VENTILATOR Blood Gas Ventilator Setting 500/AC16/PEEP5 AC 500/18/5 PEEP Blood Gas Inspired Oxygen 40 % 40 % Potassium Level 4.4 MEQ/L 3.9 MEQ/L White Blood Count 11.9 TH/MM3 Red Blood Count 3.88 MIL/MM3 Hemoglobin 10.2 GM/DL Hematocrit 31.8 % Mean Corpuscular Volume 82.0 FL Mean Corpuscular Hemoglobin 26.3 PG Mean Corpuscular Hemoglobin 32.1 % Concent Red Cell Distribution Width 17.2 % Platelet Count 144 TH/MM3 Mean Platelet Volume 9.7 FL Neutrophils (%) (Auto) 83.7 % Lymphocytes (%) (Auto) 8.3 % Monocytes (%) (Auto) 7.0 % Eosinophils (%) (Auto) 0.9 % Basophils (%) (Auto) 0.1 % Neutrophils # (Auto) 10.0 TH/MM3 Lymphocytes # (Auto) 1.0 TH/MM3 Monocytes # (Auto) 0.8 TH/MM3 Eosinophils # (Auto) 0.1 TH/MM3 Basophils # (Auto) 0.0 TH/MM3 CBC Comment DIFF FINAL Differential Comment Sodium Level 138 MEQ/L Chloride Level 100 MEQ/L Carbon Dioxide Level 33.1 MEQ/L Anion Gap 5 MEQ/L Blood Urea Nitrogen 14 MG/DL Creatinine 0.42 MG/DL Estimat Glomerular Filtration 214 ML/MIN Rate Random Glucose 91 MG/DL Calcium Level 8.9 MG/DL Magnesium Level 1.8 MG/DL Imaging Last Impressions Chest X-Ray 10/13/15 0600 Signed Impressions: Service Date/Time: Tuesday, October 13, 2015 03:51 - CONCLUSION: Mild left base consolidation superimposed on chronic interstitial lung disease, not significantly changed. Erlin Escobar MD Abdomen X-Ray 10/12/15 0000 Signed Impressions: Service Date/Time: Monday, October 12, 2015 17:37 - CONCLUSION: 1. Gastrostomy tube in place 2. Unremarkable bowel gas pattern. Salazar Thurman MD Renal Ultrasound 10/07/15 0000 Signed Impressions: Service Date/Time: Wednesday, October 07, 2015 18:29 - CONCLUSION: 1. No acute findings. 3.6 cm left renal cyst. Putnam catheter in bladder. Amaury Ellsworth MD Tunnelled Chest Tube Removal 08/05/15 1100 Signed Impressions: Service Date/Time: Wednesday, August 05, 2015 11:00 - CONCLUSION: Uncomplicated chest tube removal. Blaine Jackson MD Chest Tube Change 07/31/15 0000 Signed Impressions: Service Date/Time: Friday, July 31, 2015 14:34 - CONCLUSION: Uncomplicated reposition of previously placed chest tube as above. Blaine Jackson MD Chest Tube Insertion 07/30/15 0000 Signed Impressions: Service Date/Time: July 14:50 - CONCLUSION: Uncomplicated chest tube placement as above. Blaine Jackson MD Catheter Change 07/27/15 0000 Signed Impressions: Service Date/Time: Monday, July 27, 2015 14:43 - CONCLUSION: Uncomplicated gastrostomy tube exchange as above. Blaine Jackson MD Chest CT 07/11/15 0000 Signed Impressions: Service Date/Time: Saturday, July 11, 2015 09:49 - CONCLUSION: Scattered patchy densities significantly improved from previous study. Tiny anterior right basilar pneumothorax. Right-sided chest tube in good position. Néstor Matamoros MD Head CT 06/18/151902 Signed Impressions: Service Date/Time: June 19:31 - CONCLUSION: Diffuse atrophy unchanged. No acute intracranial findings. Kush Briscoe MD Abdomen/Pelvis CT 06/18/151902 Signed Impressions: Service Date/Time: June 19:36 - CONCLUSION: 1. Chronic nonspecific urinary bladder wall thickening. Bladder collapsed with Putnam catheter in place. 2. Chronic bilateral mid to lower lung zone groundglass opacity. 3. Nonobstructing left renal calculus. 4. Distended rectum. Kush Briscoe MD Objective Remarks GENERAL: 54-year-old male, cachectic, debilitated with contractures on ventilator via trach. HEENT: NC/AT. PERRL. MMM. OP without erythema or exudates NECK: No JVD. Supple. 8.0 Distal XLT trach in place CARDIAC: RRR. S1/S2. No S4. No murmurs, clicks gallops or rubs. LUNGS: B/L eqal air entry with few coarse BS ABDOMEN: S/NT/ND. Positive BS EXTREMITIES: 1+ dependent pedal edema. Contractures and deformities of fingers. Stage III coccyx/sacral decubitus ulcer NEUROLOGY: Patient with significant contractures of the bilat lower extremity, upper extremities. Eyes open spontaneously. Temporal and facial muscle wasting , muscular atrophy all extremities. Procedures 07/26- PEG replacement 07/29- right pigtail catheter placement for new pneumothorax Date of Insertion: Oct 05, 2015 A/P Assessment and Plan Neuro/Psych: Parkinson's disease Cognitive disorder not otherwise specified Chronic encephalopathy Dementia Depression On no sedation, monitor neuro status CT head 06/18/15: - diffuse atrophy unchanged. No acute intracranial findings Continue Sinemet 25/100 q8 via PEG, Seroquel 50 mg twice a day, olanzapine 5 mg a night, Klonopin 2 mg every 8 hours, Paxil 20 daily Continue Lortab when necessary pain and fentanyl patch 50 g every 3 days for pain management. Fentanyl bolus prn breakthrough pain or if needed for turning/ nursing care/etc. Resp: Acute on chronic respiratory failure Chronic trach #8 Shiley distal XLT Pneumonia - resolved Right pneumothorax status post pigtail catheter 2 (resolved) Continue with vent support keep sat >92% Ventilator bundle, pulm toilet, trach care, Pulmonary Dr. Restrepo following. On Prednisone 60mg daily Exchanged to 8 Distal XLT on 08/15 to facilitate suctioning, trach care. Bronchodilators ( DuoNeb) CXR today- Mild left base consolidation superimposed on chronic interstitial lung disease, not significantly changed. Cardiac History of orthostasis History of CAD History dyslipidemia History of hypertension Continue Midodrine 5 mg BID Monitor HR and BP keep MAP>65mmHg. Lactic acid 2.4 yesterday GI: Chronic moderate protein energy malnutrition Dysphagia Status post PEG Internal hemorrhoids Gastroesophageal reflux disease - 10/11 KUB abdomen: PEG tube in place. Unremarkable bowel gas pattern. -Restart TF Jevity 1.5 with goal rate 60ml/hr, place on Reglan 5mg Q8 PRN for high residuals. - On Prevacid 30 mg per PEG tube daily for GERD FEN/Renal: Nonobstructing left renal calculus - Monitor renal function, I/O's. electrolytes replacement per protocol. -Increase D5NS@100ml/hr, Give 1L NS x1 ID: 09/21 Urine cx: Pseudomonas ? colonized 09/19 Sputum cx: Pseudomonas, Kleb pneumonia ESBL pos Candiduria (cele tropicalis urine cx 08/17) ESBL positive Klebsiella/Pseudomonas pneumonia Stenotrophomonas in sputum 08/17 MRSA colonization sepsis UTI Klebsiella ESBL positive (has been treated) Abx per ID ( Merrem, Micafungin) Give Vanco 1gram x1, follow up on cxs and monitor for signs of infections ( Fever, WBC) ID follow up Pertinent cultures 09/21 Urine cx: Pseudomonas 09/19 Sputum cx: Pseudomonas, Kleb pneumonia ESBL pos Urine cx 08/17 - cele tropicalis Blood culture 08/17 negative sputum culture 08/17 - pseudomonas and Stenotrophomonas maltophilia. Urine culture: 08/02 Klebsiella pneumonia ESBL positive Urine culture: 08/02 Cele Tropicalis, C. Glabrata Sputum culture: 08/02 Pseudomonas, Klebsiella pneumonia ESBL positive Blood culture: 08/02 yeast species, Cele glabrata, Cele tropicalis - History of Multidrug resistant UTI- ESBL 02/19/15 , MRSA + 03/20/15 - Cele glabrata in urine 03/19/15 - Rechecked blood, sputum and urine cultures 07/06 no growth - 06/17 - blood cultures 2 - CONS/staph epi - 06/17 - sputum - ESBL positive Klebsiella/Pseudomonas Treated 15 days with tobramycin aerosols twice a day. - 06/17 - urine - C. glabrata/tropicalis - treated with Diflucan Endo: On SSI ( medium) with accuchecks Q6. Levemir 7u Q12 Heme Normocytic Anemia - Monitor CBC MSK Bilateral lower extremity Contractures Stage III sacral decubitus present on admission - Wound care and PT on case Prophylaxis - GI - Prevacid - DVT - SCDs/ Lovenox. ACCESS: PIVs CCT 30 mins Antonio Carr MD Oct 13, 2015 08:27
[2015-10-13] MEDS ORDERED: METOCLOPRAMIDE HCL 10 MG/2 ML VIAL IV PUSH PRN (08:30)
[2015-10-13] MEDS ORDERED: VANCOMYCIN INJ 1,000 MG in SODIUM CHLOR 0.9% 250 ML INJ 250 ML IV ONE (09:00)
[2015-10-13] MEDS ORDERED: SODIUM CHLOR 0.9% 1000 ML INJ 1,000 ML IV ONE (10:15)
--- NOTE | 2015-10-13 10:18 | HHI.HCPN ---
Reason for visit a. To assist with evaluation and management of symptoms including: pain, dyspnea; secretions. b. To assist medical decision maker(s) with: better understanding of current medical conditions; weighing benefits/burdens of medical treatment options; making medical treatment decisions. . (ALOK JONES) Subjective/Interval History Patient was transferred to ICU after Ciarra was called on 10/12/15 when he was found to be hypotensive with tube feedings coming from trach site. Chest x-ray revealed mild pulmonary edema. He was placed back on mech vent. Spoke with daughterRadha (HCP) to provide medical update. She elects NO CODE. She seems to be considering transition to comfort measures, she is asking a lot of questions about hospice and withdrawal of life support. She is not quite ready to make this decision. Call from nurse to report patient is declining. Heart rate dropping, 50s. Systolic BP 70-80. Patient seen and examined in ICU. No family at bedside. Left message for daughter, Radha (HCP) and motherTeresa to return call to notify of further decline. Spoke with motherTeresa to notify patient in ICU, medical update provided. Right arm ultrasound being done during my visit. Remains unresponsive. WBC 11.9. Creatinine 0.42. 10/11/15 - urine culture preliminary positive yeast. 10/12/15 - Sputum, urine, blood cultures pending. Nursing pain level scores are "0." No recent prn opiates given. From Dr. Pickard's initial palliative care consultation of 07/15/15... This is the 5th acute care [facility] admission in the last 10 months for this unfortunate 54 y/o male [place] [facility] senior care resident with advanced Parkinson's disease ; dementia; tracheostomy and PEG tube who was sent to the ED from his facility on 06/18/15 because of fevers, labored breathing, worsening mental status; and purulent looking sputum at the trach site. The patient has had multiple hospitalizations which included stays in the intensive care unit for various infections. He had a urinary tract infection with multidrug resistant ESBL on 02/19/15. He was last MRSA positive on . long term notes from the facility indicate that his current baseline is: * Bedbound status * Unable to communicate * NPO -- on tube feedings at 85 cc /hr * Dependent for all ADLs In the emergency Department, initial vital signs were as follows > temperature 100.9; pulse 98; respiratory rate 38; blood pressure 104/61; pulse oximetry 99% on room air via trach collar. Initial physical examination the emergency department revealed the following > patient was frail and chronically ill-appearing. Skin showed no obvious wounds. Head, eyes, ENT, neck, cardiovascular, respiratory, gastrointestinal exams were unremarkable. Neurologically, the patient was unable to answer questions or respond or follow commands. Initial diagnostic testing revealed the following: * CBC showed WBC 16.4; hemoglobin 11.3; platelet count 176 * Coagulation profile showed PT 11.4; INR 1.1; PTT 29.4 * Chemistry profile showed sodium 141; potassium 4.5; chloride 105; CO2 27.4; anion gap 9; BUN 21; creatinine 0.85; estimated GFR 95; glucose 116; calcium 9.6 * Liver function tests showed total bilirubin 0.6; AST 23; ALT 38; alkaline phosphatase 59; total protein 7.5; albumen 3.2 * Urinalysis was remarkable for large occult blood; large leukocyte esterase; few bacteria; few yeast with hyphae; few budding yeast. * Arterial blood gases on trach mask at 40% showed pH 7.53; PCO2 33; PaO2 108; bicarbonate 27; base excess 4.2 * Chest x-ray showed no acute cardiopulmonary disease * Head CT showed diffuse atrophy unchanged from prior exam. * CT of the abdomen and pelvis showed chronic nonspecific urinary bladder wall thickening; bladder collapsed with Valdez catheter in place; chronic bilateral mid to lower lung zone groundglass opacity; nonobstructing left renal calculus; distended rectum. * The emergency room doctor diagnosed severe sepsis. The patient was given 2 L of IV fluid and broad-spectrum antibiotic-coated verge in the emergency department. Cultures were obtained. Valdez catheter was changed. As the patient was markedly tachypneic with increased work of breathing and use of accessory muscles during his stay in the emergency department. He was placed on CPAP and subsequently intubated and placed on mechanical ventilation. Critical care was consulted and the patient was admitted to the intensive care unit. Further examination revealed a stage II 6 x 2 cm sacral wound. Urine culture on admission grew out Heena of 2 different species. Sputum culture grew out Klebsiella pneumonia ESBL positive as well as pseudomonas. Blood culture grew out coag-negative staph and staph epidermidis. Both infectious disease and pulmonology were consulted. The patient slowly improved, was extubated, and critical care signed off on . However, on 07/06 the patient had to be placed back on the ventilator. A right sided pneumothorax was noted and patient underwent chest tube placement by interventional radiology. Pneumothorax has appeared to resolve on most recent chest x-ray. Sputum, blood, and urine cultures from 07/07/15 are all negative. White blood count is currently down to 7. Hemoglobin is 10.6. Albumen is suboptimal at 3.0. Renal function is normal. He is currently off anti-biotics. Current pain regimen includes the following: * Fentanyl patch; 50 g per hour * Morphine sulfate 5 mg sublingually or via the tube every 4 hours when necessary (he has been using 1-2 doses of this per day) The patient was tolerating CPAP earlier today and has since been removed from the ventilator and is on a T-piece at 40% FI02. At time of my visit, eyes are open. He intermittently tracks. He cannot follow commands and makes no attempt to interact. . Family/friend interactions See interval note. . (ALOK JONES) Advance Directives Living Will: Never completed Health Care Surrogate: Copy in medical record Durable Power of [employer] Messenger: Never completed (ALOK JONES) Advance Directive Specifics Date completed: Patient visited Scott Mack, Security Messenger in March and again in November 2014. The patient was encouraged to complete Advance directive documents but never did them. Dr. Pickard personally called Mr. Mack ([phone]) to check for advance directives. Health Care Surrogate(s): The patient completed a health care surrogate document dated 09/02/14 desigating his friend Bola Nolasco as surrogate. Mr. Nolasco was not aware of this and has declined serving in that capacity. The patient has an adult daughter -- Radha Foreman who is willing to serve as health care proxy decision maker. Patient's mother, Teresa is aware. Significant change in goals: Daughter elects NO CODE. Considering transition to comfort measures, not yet ready to make a final decision regarding withdrawal of life support, I suspect this will be difficult for her. . (ALOK JONES) Objective Vital Signs Date Time Temp Pulse Resp B/P Pulse Ox O2 Delivery O2 Flow Rate FiO2 10/13/15 08:52 96 40 10/13/15 07:00 96 Mechanical Ventilator 40 10/13/15 06:00 70 10/13/15 05:36 96 40 10/13/15 04:00 40 10/13/15 04:00 97.9 71 18 86/57 95 10/13/15 04:00 71 10/13/15 02:26 97 40 10/13/15 02:00 76 10/13/15 00:00 97.8 83 18 87/59 95 10/13/15 00:00 83 10/13/15 00:00 40 10/12/15 23:51 95 40 10/12/15 22:00 88 10/12/15 20:17 95 40 10/12/15 20:00 91 10/12/15 20:00 97.2 91 19 88/64 95 10/12/15 20:00 40 10/12/15 19:00 95 Mechanical Ventilator 40 10/12/15 18:34 93 40 10/12/15 18:00 40 10/12/15 18:00 97.0 101 24 102/55 93 10/12/15 18:00 101 10/12/15 17:27 98 40 10/12/15 16:43 98 T-piece 6.00 50 10/12/15 16:28 95 10/12/15 16:00 95.9 72 18 94/68 98 10/12/15 12:00 96.8 79 20 136/84 99 Intake & Output 10/13/15 10/13/15 07:00 19:00 Intake Total 630 ml Output Total 1350 ml Balance -720 ml IV Total 630 ml Tube Feeding 0 ml Output Urine Total 1350 ml # Bowel Movements 0 Physical Exam CONSTITUTIONAL/GENERAL: This is a thin, pale, contracted, chronically ill appearing male on [facility] vent to trach. Unresponsive. TUBES/LINES/DRAINS: Trach; valdez cath, PIVs left, PEG tube; scd's SKIN: No jaundice, rashes, or lesions. Sacral wound, not visualized today. Diaphoretic. NECK: Tracheostomy to vent. CARDIOVASCULAR: Regular rate and rhythm without murmurs, gallops, or rubs. No JVD. Peripheral pulses symmetric. RESPIRATORY/CHEST: Scattered course breath sounds. Breath sounds equal bilaterally and diminished at bases. GASTROINTESTINAL: Abdomen soft, non-tender, nondistended. No guarding. Bowel sounds present. GENITOURINARY: Without palpable bladder distension. catheter in place. MUSCULOSKELETAL: Extremities without clubbing, cyanosis, or edema. Contractures noted. No mottlin . NEUROLOGICAL: Does not open eyes to voice or command. Unresponsive. Unable to follow even simple commands. No spontaneous movements seen. PSYCHIATRIC: Unresponsive. . (ALOK JONES) Diagnostic Tests Laboratory Laboratory Tests Test 10/11/15 10/12/15 10/12/15 10/12/15 15:00 09:15 17:30 17:51 Urine Color LIGHT-YELLOW YELLOW (YELLW/STRAW) (YELLW/STRAW) Urine Turbidity CLEAR (CLEAR) HAZY (CLEAR) Urine pH 8.0 (5.0-8.5) 7.0 (5.0-8.5) Urine Specific Gila 1.009 1.013 (1.002-1.035) (1.002-1.035) Urine Protein NEG mg/dL TRACE mg/dL (NEG-TRACE) (NEG-TRACE) Urine Glucose (UA) 70 mg/dL (NEG) NEG mg/dL (NEG) Urine Ketones NEG mg/dL (NEG) NEG mg/dL (NEG) Urine Occult Blood NEG (NEG) TRACE (NEG) Urine Nitrite NEG (NEG) NEG (NEG) Urine Bilirubin NEG (NEG) NEG (NEG) Urine Urobilinogen LESS THAN 2.0 LESS THAN 2.0 MG/DL (LESS MG/DL (LESS THAN 2.0) THAN 2.0) Urine Leukocyte Esterase SMALL (NEG) LARGE (NEG) Urine RBC 33 /hpf (0-3) 8 /hpf (0-3) Urine WBC 3 /hpf (0-5) 61 /hpf (0-5) Urine Squamous Epithelial <1 /hpf (0-5) Cells Urine Bacteria RARE /hpf FEW /hpf (NONE) (NONE) Urine Mucus FEW /lpf (OCC) FEW /lpf (OCC) Urine Yeast (Budding) MOD (NONE) FEW (NONE) Microscopic Urinalysis Comment CATH-CULTURE CATH-CULTURE IND IND White Blood Count 8.9 TH/MM3 10.1 TH/MM3 (4.0-11.0) (4.0-11.0) Red Blood Count 3.95 MIL/MM3 4.29 MIL/MM3 (4.50-5.90) (4.50-5.90) Hemoglobin 10.6 GM/DL 11.5 GM/DL (13.0-17.0) (13.0-17.0) Hematocrit 32.5 % 35.8 % (39.0-51.0) (39.0-51.0) Mean Corpuscular Volume 82.3 FL 83.5 FL (80.0-100.0) (80.0-100.0) Mean Corpuscular Hemoglobin 26.7 PG 26.7 PG (27.0-34.0) (27.0-34.0) Mean Corpuscular Hemoglobin 32.4 % 32.0 % Concent (32.0-36.0) (32.0-36.0) Red Cell Distribution Width 17.1 % 17.4 % (11.6-17.2) (11.6-17.2) Platelet Count 129 TH/MM3 155 TH/MM3 (150-450) (150-450) Mean Platelet Volume 9.2 FL 8.8 FL (7.0-11.0) (7.0-11.0) Neutrophils (%) (Auto) 74.9 % 94.4 % (16.0-70.0) (16.0-70.0) Lymphocytes (%) (Auto) 14.8 % 4.1 % (9.0-44.0) (9.0-44.0) Monocytes (%) (Auto) 6.7 % (0.0-8.0) 1.4 % (0.0-8.0) Eosinophils (%) (Auto) 3.1 % (0.0-4.0) 0.0 % (0.0-4.0) Basophils (%) (Auto) 0.5 % (0.0-2.0) 0.1 % (0.0-2.0) Neutrophils # (Auto) 6.7 TH/MM3 9.5 TH/MM3 (1.8-7.7) (1.8-7.7) Lymphocytes # (Auto) 1.3 TH/MM3 0.4 TH/MM3 (1.0-4.8) (1.0-4.8) Monocytes # (Auto) 0.6 TH/MM3 0.1 TH/MM3 (0-0.9) (0-0.9) Eosinophils # (Auto) 0.3 TH/MM3 0.0 TH/MM3 (0-0.4) (0-0.4) Basophils # (Auto) 0.0 TH/MM3 0.0 TH/MM3 (0-0.2) (0-0.2) CBC Comment AUTO DIFF DIFF FINAL Differential Total Cells 100 Counted Neutrophils % (Manual) 74 % (16-70) Band Neutrophils % 6 % (0-6) Lymphocytes % 16 % (9-44) Monocytes % 2 % (0-8) Eosinophils % 2 % (0-4) Neutrophils # (Manual) 7.1 TH/MM3 (1.8-7.7) Differential Comment FINAL DIFF MANUAL Platelet Estimate LOW (NORMAL) Platelet Morphology Comment NORMAL (NORMAL) Sodium Level 135 MEQ/L 137 MEQ/L (136-145) (136-145) Potassium Level 4.4 MEQ/L 5.0 MEQ/L (3.5-5.1) (3.5-5.1) Chloride Level 96 MEQ/L 98 MEQ/L (98-107) (98-107) Carbon Dioxide Level 35.0 MEQ/L 33.9 MEQ/L (21.0-32.0) (21.0-32.0) Anion Gap 4 MEQ/L (5-15) 5 MEQ/L (5-15) Blood Urea Nitrogen 11 MG/DL (7-18) 11 MG/DL (7-18) Creatinine 0.25 MG/DL 0.37 MG/DL (0.60-1.30) (0.60-1.30) Estimat Glomerular Filtration 389 ML/MIN 247 ML/MIN Rate (>89) (>89) Random Glucose 76 MG/DL 115 MG/DL (74-106) (74-106) Calcium Level 8.9 MG/DL 8.7 MG/DL (8.5-10.1) (8.5-10.1) Urine WBC Clumps FEW (NONE) Urine Hyaline Casts 1 /lpf (RARE) Urine Yeast with Hyphae MOD (NONE) Prothrombin Time 15.9 SEC (9.8-11.4) Prothromb Time International 1.5 RATIO Ratio Magnesium Level 1.7 MG/DL (1.5-2.5) Test 10/12/15 10/12/15 10/13/15 10/13/15 17:57 18:06 00:43 04:15 Lactic Acid Level 2.4 mmol/L (0.4-2.0) Blood Gas Puncture Site LT RADIAL RT RADIAL Blood Gas Patient Temperature 98.6 98.6 Blood Gas HCO3 31 mmol/L 32 mmol/L (22-26) (22-26) Blood Gas Base Excess 5.8 mmol/L 7.9 mmol/L (-2-2) (-2-2) Blood Gas Oxygen Saturation 90 % (90-100) 91 % (90-100) Arterial Blood pH 7.35 7.45 (7.380-7.420) (7.380-7.420) Arterial Blood Partial 59 mmHg (38-42) 48 mmHg (38-42) Pressure CO2 Arterial Blood Partial 71 mmHg 68 mmHg Pressure O2 (61-120) (61-120) Arterial Blood Oxygen Content 13.9 Vol % 12.8 Vol % (12.0-20.0) (12.0-20.0) Arterial Blood 1.4 % (0-4) 1.5 % (0-4) Carboxyhemoglobin Arterial Blood Methemoglobin 0.7 % (0-2) 0.8 % (0-2) Blood Gas Hemoglobin 11.0 G/DL 10.0 G/DL (12.0-16.0) (12.0-16.0) Oxygen Delivery Device VENTILATOR VENTILATOR Blood Gas Ventilator Setting 500/AC16/PEEP5 AC 500/18/5 PEEP Blood Gas Inspired Oxygen 40 % 40 % Potassium Level 4.4 MEQ/L (3.5-5.1) Test 10/13/15 04:52 White Blood Count 11.9 TH/MM3 (4.0-11.0) Red Blood Count 3.88 MIL/MM3 (4.50-5.90) Hemoglobin 10.2 GM/DL (13.0-17.0) Hematocrit 31.8 % (39.0-51.0) Mean Corpuscular Volume 82.0 FL (80.0-100.0) Mean Corpuscular Hemoglobin 26.3 PG (27.0-34.0) Mean Corpuscular Hemoglobin 32.1 % Concent (32.0-36.0) Red Cell Distribution Width 17.2 % (11.6-17.2) Platelet Count 144 TH/MM3 (150-450) Mean Platelet Volume 9.7 FL (7.0-11.0) Neutrophils (%) (Auto) 83.7 % (16.0-70.0) Lymphocytes (%) (Auto) 8.3 % (9.0-44.0) Monocytes (%) (Auto) 7.0 % (0.0-8.0) Eosinophils (%) (Auto) 0.9 % (0.0-4.0) Basophils (%) (Auto) 0.1 % (0.0-2.0) Neutrophils # (Auto) 10.0 TH/MM3 (1.8-7.7) Lymphocytes # (Auto) 1.0 TH/MM3 (1.0-4.8) Monocytes # (Auto) 0.8 TH/MM3 (0-0.9) Eosinophils # (Auto) 0.1 TH/MM3 (0-0.4) Basophils # (Auto) 0.0 TH/MM3 (0-0.2) CBC Comment DIFF FINAL Differential Comment Sodium Level 138 MEQ/L (136-145) Potassium Level 3.9 MEQ/L (3.5-5.1) Chloride Level 100 MEQ/L (98-107) Carbon Dioxide Level 33.1 MEQ/L (21.0-32.0) Anion Gap 5 MEQ/L (5-15) Blood Urea Nitrogen 14 MG/DL (7-18) Creatinine 0.42 MG/DL (0.60-1.30) Estimat Glomerular Filtration 214 ML/MIN Rate (>89) Random Glucose 91 MG/DL (74-106) Calcium Level 8.9 MG/DL (8.5-10.1) Magnesium Level 1.8 MG/DL (1.5-2.5) (ALOK JONES) Result Diagram: 10/13/15 0452 10/13/15 0452 Microbiology Microbiology Date/Time Procedure Status Source Growth 10/11/15 15:00 Urine Culture - Preliminary Resulted Urine Catheterized Urine Yeast-Id To Follow 10/12/15 17:27 Gram Stain - Final Resulted Sputum Endotracheal 10/12/15 17:27 Sputum Culture Resulted Sputum Endotracheal Pending 10/12/15 17:30 Urine Culture Received Urine Catheterized Urine Pending 10/12/15 17:52 Aerobic Blood Culture Received Blood Peripheral Pending 10/12/15 17:52 Anaerobic Blood Culture Received Blood Peripheral Pending 10/12/15 17:58 Aerobic Blood Culture Received Blood Peripheral Pending 10/12/15 17:58 Anaerobic Blood Culture Received Blood Peripheral Pending Imaging Last Impressions Chest X-Ray 10/13/15 0600 Signed Impressions: Service Date/Time: Tuesday, October 13, 2015 03:51 - CONCLUSION: Mild left base consolidation superimposed on chronic interstitial lung disease, not significantly changed. Erlin Escobar MD Abdomen X-Ray 10/12/15 0000 Signed Impressions: Service Date/Time: Monday, October 12, 2015 17:37 - CONCLUSION: 1. Gastrostomy tube in place 2. Unremarkable bowel gas pattern. Salazar Thurman MD Renal Ultrasound 10/07/15 0000 Signed Impressions: Service Date/Time: Wednesday, October 07, 2015 18:29 - CONCLUSION: 1. No acute findings. 3.6 cm left renal cyst. Valdez catheter in bladder. Amaury Ellsworth MD Tunnelled Chest Tube Removal 08/05/15 1100 Signed Impressions: Service Date/Time: Wednesday, August 05, 2015 11:00 - CONCLUSION: Uncomplicated chest tube removal. Blaine Jackson MD Chest Tube Change 07/31/15 0000 Signed Impressions: Service Date/Time: Friday, July 31, 2015 14:34 - CONCLUSION: Uncomplicated reposition of previously placed chest tube as above. Blaine Jackson MD Chest Tube Insertion 07/30/15 0000 Signed Impressions: Service Date/Time: July 14:50 - CONCLUSION: Uncomplicated chest tube placement as above. Blaine Jackson MD Catheter Change 07/27/15 0000 Signed Impressions: Service Date/Time: Monday, July 27, 2015 14:43 - CONCLUSION: Uncomplicated gastrostomy tube exchange as above. Blaine Jackson MD Chest CT 07/11/15 0000 Signed Impressions: Service Date/Time: Saturday, July 11, 2015 09:49 - CONCLUSION: Scattered patchy densities significantly improved from previous study. Tiny anterior right basilar pneumothorax. Right-sided chest tube in good position. Néstor Matamoros MD Head CT 06/18/151902 Signed Impressions: Service Date/Time: , June 18, 2015 19:31 - CONCLUSION: Diffuse atrophy unchanged. No acute intracranial findings. Kush Briscoe MD Abdomen/Pelvis CT 06/18/151902 Signed Impressions: Service Date/Time: June 19:36 - CONCLUSION: 1. Chronic nonspecific urinary bladder wall thickening. Bladder collapsed with Valdez catheter in place. 2. Chronic bilateral mid to lower lung zone groundglass opacity. 3. Nonobstructing left renal calculus. 4. Distended rectum. Kush Briscoe MD Procedures * Mechanical ventilation * Chest tube placement on right 07/07/15 * Chest tube removal 07/17/15 . (ALOK JONES LINE DEPARTMENT SUPERVISOR-C) Assessment and Plan Disease Oriented Problem List: (1) Acute respiratory failure Comment: 10/13/15 - Halicat for hypotension and tube feeding coming from trach. - Back on mech vent in ICU. . (2) Chronic respiratory failure (3) Septic shock (4) Pneumonia Comment: Aspiration. Repeat cultures pending. . (5) UTI (urinary tract infection) Comment: Repeat culture pending. . (6) Parkinson disease (7) Moderate malnutrition Symptom Scale: (1) Pain 0-10 Scale: Unable to quantify Comment: Sources of pain might include wound, prolonged bedbound status, contractures, restraints, valdez, vascular access catheters. Appears comfortable on current regimen. ,l (2) Dyspnea 0-10 Scale: Unable to quantify Comment: On mech vent. . (3) Malnutrition 0-10 Scale: Unable to quantify Comment: Tube feedings coming from trach site 10/11. . (4) Encephalopathy 0-10 Scale: Unable to quantify Comment: Remains unresponsive. (5) Increased tracheal secretions 0-10 Scale: Unable to quantify Comment: PRN Levsin available. Pertinent Non-Medical Issues Psychosocial: senior living senior care resident. 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 Severe dementia. Daughter, mother, and brother are involved. Spiritual: Christianity. Has been a member for the [facility] [employer] and members have provided both community support and spiritual support in the past. Legal: No advance directives. Daughter (Radha Foreman) is legal proxy and lives 4 hours away. She can be quite difficult to contact by phone. Ethical issues impacting care: None. . Important Contacts * Radha Foreman (daughter and proxy) [phone] * Teresa Perea (mother -- lives in [place]) [phone] . Prognosis Patient has end stage Parkinson's with end stage dementia. 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 He is a chronic trach/PEG tube patient with contractures and skin breakdown. Should family continue to want aggressive care, he will continue to go back and forth from facility to hospital until such time that we are no longer able to overcome the sepsis. Patient is hospice eligible whenever family is ready to transition to "comfort measures only." . Code Status: No Code Plan * Decision making: Patient is incapacitated and will not regain capacity. There is no designated health care surrogate. Daughter, Radha Foreman, is legal proxy under [place] statutes but can be hard to contact at times. * NO CODE elected 10/13/15 per daughterRadha/HCP. * 10/13/15 - Spoke with daughterRadha (HCP) to provide medical update. She elects NO CODE. She seems to be considering transition to comfort measures, she is asking a lot of questions about hospice and withdrawal of life support. She is not quite ready to make this decision. * Pain: Sources of pain are unclear as patient in non communicative, but would include prolonged bedbound status; tubes and lines; contractures; wound; etc. Current regimen appears to adequate . No further recommendations at this time. * Dyspnea: Dyspnea due to aspiration pneumonia. Has previously been challenging to get off vent. * Malnutrition: Tolerating tube feeds, but albumin remains low. * Secretions: PRN Levsin available. Remains high risk for aspiration due to secretions and tube feeding. * Palliative care will try and meet with Radha (proxy) in person when she next comes to visit. She continues to insist on aggressive goals in spite of the incredibly bleak prognosis. . . (ALOK JONES) Attestation To help prompt me to consider important information that might be impacting today's encounter and assessment, information from prior notes written by myself or my colleagues may have been "brought forward" into today's note. My signature on this note, however, is an attestation that I personally performed the exam, history, and/or decision-making noted today, and, unless otherwise indicated, the interactions with patient, family, and staff as well as the review of records all occurred today. I also attest that the listed assessment and stated plan reflect my best clinical judgment today based on the combination of historical information, prior notes, and today's exam/ interactions. When time spent is documented, it refers only to time spent today by the signer, or if indicated, combined time spent today by collaborating physician/nurse practitioner. (ALOK JONES) Collaborating MD Comments Chart reviewed. Case discussed with palliative care LINE DEPARTMENT SUPERVISOR. Above note reviewed and I concur. . (Pascual Pickard MD) ALOK JONES Oct 13, 2015 10:18 Pascual Pickard MD Nov 01, 2015 13:21
--- NOTE | 2015-10-13 11:15 | HHI.PR ---
Subjective Remarks [facility]red to [facility] after [facility] yesterday, Following aspiration. Was hypotensive and febrile, and received antibiotics, and Cultures done. Awake and on vent support .A/C rate 16, FIO2 40 %.. Neuro status same. On tube feeds. Has no fever. Objective Vital Signs Date Time Temp Pulse Resp B/P Pulse Ox O2 Delivery O2 Flow Rate FiO2 10/13/15 10:00 65 10/13/15 08:52 96 40 10/13/15 08:00 78 10/13/15 08:00 98.3 78 18 79/51 96 10/13/15 08:00 40 10/13/15 07:00 96 Mechanical Ventilator 40 10/13/15 06:00 70 10/13/15 05:36 96 40 10/13/15 04:00 40 10/13/15 04:00 97.9 71 18 86/57 95 10/13/15 04:00 71 10/13/15 02:26 97 40 10/13/15 02:00 76 10/13/15 00:00 97.8 83 18 87/59 95 10/13/15 00:00 83 10/13/15 00:00 40 10/12/15 23:51 95 40 10/12/15 22:00 88 10/12/15 20:17 95 40 10/12/15 20:00 91 10/12/15 20:00 97.2 91 19 88/64 95 10/12/15 20:00 40 10/12/15 19:00 95 Mechanical Ventilator 40 10/12/15 18:34 93 40 10/12/15 18:00 40 10/12/15 18:00 97.0 101 24 102/55 93 10/12/15 18:00 101 10/12/15 17:27 98 40 10/12/15 16:43 98 T-piece 6.00 50 10/12/15 16:28 95 10/12/15 16:00 95.9 72 18 94/68 98 10/12/15 12:00 96.8 79 20 136/84 99 I/O 10/12/15 10/12/15 10/12/15 10/13/15 10/13/15 10/13/15 07:00 15:00 23:00 07:00 15:00 23:00 Intake Total 1173 ml 1426 ml 426 ml Output Total 550 ml 1100 ml 250 ml Balance 623 ml 326 ml 176 ml Intake Oral 0 ml IV Total 558 ml 864 ml 426 ml Tube Feeding 355 ml 442 ml Tube Irrigant 60 ml Other 200 ml 120 ml Output Urine Total 550 ml 1100 ml 250 ml # Bowel Movements 0 0 0 Result Diagram: 10/13/1545110/13/15451 Objective Remarks This is a thin white male who is unresponsive ,with a trach tube in place. HEENT: Pupils are equal and reactive to light. Throat secretions. CHEST:Decreased breath sounds ,Crackles scattered,with few wheezes . CARDIOVASCULAR: S1 and S2 is normal.No murmur. ABDOMEN: Soft, nondistended. BS +. He has a PEG tube in place. EXTREMITIES: No edema.muscle wasting. Decubitus ++. NEURO: Lethargic , and has weak extremities .Reflexes not elicited.Skin is dry. Assessment and Plan Assessment and Plan IMPRESSION 1. Acute on Chronic Respiratory failure. 2. Sepsis, Aspiration . 3. Shock. 4. Tracheobronchitis 5. Parkinson's disease 6. Dementia. 7. Severe Deconditioning. Plan : 1. A/C rate 16, PEEP +5, FIO2 40 %. 2. Nebs qid , duoneb. 3. Cont Tube feeds at 60 CC 4. Antibiotics per ID. 5. Levsin .25 mg tid for Secretions 6. Cont Trach toilet and lavage. 8. CXR , CBC,BMP in am 9. Culture from Trach ,Blood ,Urine. Darren Kiser MD Oct 13, 2015 11:15
--- NOTE | 2015-10-13 11:27 | RADRPT ---
EXAM DATE/TIME: 10/13/2015 09:51 [facility] COMPARISON: No previous studies available for comparison. INDICATIONS : Swelling in right upper extremity. MEDICAL HISTORY : Dementia. Parkinson's. Hypercholesterolemia. Encephalopathy. Confusion. Tremors. Hypertension. [place] ry artery disease. Hemorroids. GERD. UTI. Arthritis. C.Diff - 2014. MRSA - 2016. ESBL K. pneumoniae - 2016. SURGICAL HISTORY : Throat surgery. Back surgery. Tracheostomy. ENCOUNTER: Initial ACUITY: 1 day PAIN SCORE: Non-responsive LOCATION: Right arm. FINDINGS: There is spontaneous flow documented in the brachial, basilic, cephalic, axillary, and subclavian vei ns. The vessels are compressible and augmentation response is documented. No filling defects are se en. The flow is phasic with respiration. Direction of flow in the jugular vein is caudal. CONCLUSION: 1. No evidence of deep venous thrombosis. John Anderson MD on October 13, 2015 at 11:24 Board Certified Radiologist. This report was verified electronically.
[2015-10-13] MEDS: DEXT 5%-NACL 0.9% 1000 ML INJ 1,000 ML IV SCH (12:40)
[2015-10-13] MEDS ORDERED: ASP: Other exception documentation: ( ) XX PRN (12:45)
[2015-10-13] MEDS ORDERED: MISCELLANEOUS PHARMACY INFORMATION XX PRN (12:45)
--- NOTE | 2015-10-13 12:54 | HHI.IDPN ---
Subjective Subjective Remarks Chart reviewed. Patient known to me. ID was reconsulted few days back from abnormal UA (not treated). Now reconsulted for overnight events that are new indicative of new infectious process. Was on [facility] and transferred as a [facility] due to being found on the floor, hypotensive and obvious aspiration of tube feed contents s/o aspiration. Overnight events reviewed. Periods of hypothermia. Hypotension with MAP in the low 50s. Not on pressors yet. Urine output low 134 cc this am. Right arm swollen. Doppler UE pending. Tentative report negative. Walsh cultured. Was on Zosyn IV and Vanco IV x 1 dose. Antibiotics Zosyn IV Vanco IV x 1 dose. Lines Peripheral IV with no e/o infection Past Medical History reviewed Allergies: Coded Allergies: *MDRO Multi-Drug Resistant Organism (Verified Adverse Reaction, Unknown, ) ESBL E. coli (urine) - 02/19/2015; ESBL K. pneumoniae (sputum) - 06/18/15, (urine) - 08/03/15,(sputum) - 08/03/15, (sputum) - 09/20/15 MRSA PCR POSITIVE - 03/20/2015 MDR-Pseudomonas (sputum)- 08/18/15, 09/20/15 Objective . Vital Signs Date Time Temp Pulse Resp B/P Pulse Ox O2 Delivery O2 Flow Rate FiO2 10/13/15 12:12 96 40 10/13/15 12:00 40 10/13/15 12:00 57 10/13/15 10:00 65 10/13/15 08:52 96 40 10/13/15 08:00 78 10/13/15 08:00 98.3 78 18 79/51 96 10/13/15 08:00 40 10/13/15 07:00 96 Mechanical Ventilator 40 10/13/15 06:00 70 10/13/15 05:36 96 40 10/13/15 04:00 40 10/13/15 04:00 97.9 71 18 86/57 95 10/13/15 04:00 71 10/13/15 02:26 97 40 10/13/15 02:00 76 10/13/15 00:00 97.8 83 18 87/59 95 10/13/15 00:00 83 10/13/15 00:00 40 10/12/15 23:51 95 40 10/12/15 22:00 88 10/12/15 20:17 95 40 10/12/15 20:00 91 10/12/15 20:00 97.2 91 19 88/64 95 10/12/15 20:00 40 10/12/15 19:00 95 Mechanical Ventilator 40 10/12/15 18:34 93 40 10/12/15 18:00 40 10/12/15 18:00 97.0 101 24 102/55 93 10/12/15 18:00 101 10/12/15 17:27 98 40 10/12/15 16:43 98 T-piece 6.00 50 10/12/15 16:28 95 10/12/15 16:00 95.9 72 18 94/68 98 10/12/15 10/12/15 10/13/15 15:00 23:00 07:00 Intake Total 1426 ml 426 ml Output Total 1100 ml 250 ml Balance 326 ml 176 ml IV Total 864 ml 426 ml Tube Feeding 442 ml Other 120 ml Output Urine Total 1100 ml 250 ml # Bowel Movements 0 0 . Laboratory Tests Test 10/12/15 10/12/15 10/13/15 09:15 17:51 04:52 White Blood Count 8.9 TH/MM3 10.1 TH/MM3 11.9 TH/MM3 Red Blood Count 3.95 MIL/MM3 4.29 MIL/MM3 3.88 MIL/MM3 Hemoglobin 10.6 GM/DL 11.5 GM/DL 10.2 GM/DL Hematocrit 32.5 % 35.8 % 31.8 % Mean Corpuscular Volume 82.3 FL 83.5 FL 82.0 FL Mean Corpuscular Hemoglobin 26.7 PG 26.7 PG 26.3 PG Mean Corpuscular Hemoglobin 32.4 % 32.0 % 32.1 % Concent Red Cell Distribution Width 17.1 % 17.4 % 17.2 % Platelet Count 129 TH/MM3 155 TH/MM3 144 TH/MM3 Mean Platelet Volume 9.2 FL 8.8 FL 9.7 FL Neutrophils (%) (Auto) 74.9 % 94.4 % 83.7 % Lymphocytes (%) (Auto) 14.8 % 4.1 % 8.3 % Monocytes (%) (Auto) 6.7 % 1.4 % 7.0 % Eosinophils (%) (Auto) 3.1 % 0.0 % 0.9 % Basophils (%) (Auto) 0.5 % 0.1 % 0.1 % Neutrophils # (Auto) 6.7 TH/MM3 9.5 TH/MM3 10.0 TH/MM3 Lymphocytes # (Auto) 1.3 TH/MM3 0.4 TH/MM3 1.0 TH/MM3 Monocytes # (Auto) 0.6 TH/MM3 0.1 TH/MM3 0.8 TH/MM3 Eosinophils # (Auto) 0.3 TH/MM3 0.0 TH/MM3 0.1 TH/MM3 Basophils # (Auto) 0.0 TH/MM3 0.0 TH/MM3 0.0 TH/MM3 CBC Comment AUTO DIFF DIFF FINAL DIFF FINAL Differential Total Cells 100 Counted Neutrophils % (Manual) 74 % Band Neutrophils % 6 % Lymphocytes % 16 % Monocytes % 2 % Eosinophils % 2 % Neutrophils # (Manual) 7.1 TH/MM3 Differential Comment FINAL DIFF MANUAL Platelet Estimate LOW Platelet Morphology Comment NORMAL Laboratory Tests Test 10/12/15 10/12/15 10/12/15 10/13/15 09:15 17:51 17:57 00:43 Sodium Level 135 MEQ/L 137 MEQ/L Potassium Level 4.4 MEQ/L 5.0 MEQ/L 4.4 MEQ/L Chloride Level 96 MEQ/L 98 MEQ/L Carbon Dioxide Level 35.0 MEQ/L 33.9 MEQ/L Anion Gap 4 MEQ/L 5 MEQ/L Blood Urea Nitrogen 11 MG/DL 11 MG/DL Creatinine 0.25 MG/DL 0.37 MG/DL Estimat Glomerular Filtration 389 ML/MIN 247 ML/MIN Rate Random Glucose 76 MG/DL 115 MG/DL Calcium Level 8.9 MG/DL 8.7 MG/DL Magnesium Level 1.7 MG/DL Lactic Acid Level 2.4 mmol/L Test 10/13/15 04:52 Sodium Level 138 MEQ/L Potassium Level 3.9 MEQ/L Chloride Level 100 MEQ/L Carbon Dioxide Level 33.1 MEQ/L Anion Gap 5 MEQ/L Blood Urea Nitrogen 14 MG/DL Creatinine 0.42 MG/DL Estimat Glomerular Filtration 214 ML/MIN Rate Random Glucose 91 MG/DL Calcium Level 8.9 MG/DL Magnesium Level 1.8 MG/DL Microbiology Date/Time Procedure Status Source Growth 10/11/15 15:00 Urine Culture - Preliminary Resulted Urine Catheterized Urine Yeast-Id To Follow 10/12/15 17:27 Gram Stain - Final Resulted Sputum Endotracheal 10/12/15 17:27 Sputum Culture Resulted Sputum Endotracheal Pending 10/12/15 17:30 Urine Culture Received Urine Catheterized Urine Pending 10/12/15 17:52 Aerobic Blood Culture - Preliminary Resulted Blood Peripheral NO GROWTH IN 1 DAY 10/12/15 17:52 Anaerobic Blood Culture - Preliminary Resulted Blood Peripheral NO GROWTH IN 1 DAY 10/12/15 17:58 Aerobic Blood Culture - Preliminary Resulted Blood Peripheral NO GROWTH IN 1 DAY 10/12/15 17:58 Anaerobic Blood Culture - Preliminary Resulted Blood Peripheral NO GROWTH IN 1 DAY Imaging Chest X-Ray 10/05/15 0000 Signed Impressions: Service Date/Time: Monday, October 05, 2015 19:56 - CONCLUSION: Hyperinflation with no acute cardiopulmonary process. Scott Goode MD Chest X-Ray 09/25/15 0000 Signed Impressions: Service Date/Time: Friday, September 25, 2015 09:28 - CONCLUSION: No acute disease. Tai Taylor Jr., MD Abdomen X-Ray 09/21/15 0000 Signed Impressions: Service Date/Time: Monday, September 21, 2015 11:31 - CONCLUSION: Normal bowel gas pattern. Tai Taylor Jr., MD Tunnelled Chest Tube Removal 08/05/15 1100 Signed Impressions: Service Date/Time: Wednesday, August 05, 2015 11:00 - CONCLUSION: Uncomplicated chest tube removal. Blaine Jackson MD Chest Tube Change 07/31/15 0000 Signed Impressions: Service Date/Time: Friday, July 31, 2015 14:34 - CONCLUSION: Uncomplicated reposition of previously placed chest tube as above. Blaine Jackson MD Chest Tube Insertion 07/30/15 0000 Signed Impressions: Service Date/Time: July 14:50 - CONCLUSION: Uncomplicated chest tube placement as above. Blaine Jackson MD Catheter Change 07/27/15 0000 Signed Impressions: Service Date/Time: Monday, July 27, 2015 14:43 - CONCLUSION: Uncomplicated gastrostomy tube exchange as above. Blaine Jackson MD Chest CT 07/11/15 0000 Signed Impressions: Service Date/Time: Saturday, July 11, 2015 09:49 - CONCLUSION: Scattered patchy densities significantly improved from previous study. Tiny anterior right basilar pneumothorax. Right-sided chest tube in good position. Néstor Matamoros MD Head CT 06/18/151902 Signed Impressions: Service Date/Time: June 19:31 - CONCLUSION: Diffuse atrophy unchanged. No acute intracranial findings. Kush Briscoe MD Abdomen/Pelvis CT 06/18/151902 Signed Impressions: Service Date/Time: , June 18, 2015 19:36 - CONCLUSION: 1. Chronic nonspecific urinary bladder wall thickening. Bladder collapsed with Putnam catheter in place. 2. Chronic bilateral mid to lower lung zone groundglass opacity. 3. Nonobstructing left renal calculus. 4. Distended rectum. Kush Briscoe MD Physical Exam GENERAL: eyes closed, on T piece, NAD. No interaction SKIN: No generalized rash. Cool and dry. HEENT: [place] conjunctivae, no icterus, moist mucosa NECK: Trach site looks ok. RESPIRATORY: decreased at the bases. GASTROINTESTINAL: Abdomen soft, non-tender, not distended. No hepatosplenomegaly PEG tube site clean, no evidence of infection. MUSCULOSKELETAL: No cyanosis No pedal edema. Contracted all 4 extremities. NEUROLOGICAL: Keeping his eyes closed, contractures of the extremities, no interaction. Peripheral IV line sites with no evidence of infection. ; Putnam in place, urine looks clear Assessment & Plan Remarks New sepsis (hypothermia, hypotension, sources: bacteremia, UTI, Aspiration PNA) Aspiration PNA in Health care setting. History of PSAE ESBL cath associated UTI. S/P Rx Leukocytosis, resolved Chronic respiratory failure on trach PSAE and ESBL Kleb in sputum in recent past. Chronic encephalopathy with underlying diagnosis of advanced dementia as well as advanced Parkinson's disease. Status post trach Status post gastrostomy tube with no evidence of infection. Stage II sacral decubitus ulcer present on admission. Recommendations DC Zosyn IV Agree with Vanco IV x 1 dose. Recheck Vanco random level in am. Start Micafungin ([facility] documentation: has funguria at risk for fungemia due to broad spectrum antibiotics in recent past). Start Meropenem ([facility] documentation: has prior MDRO ESBL and PSAE in past in sputum) If diarrhea check Cdiff. Likely aspiration PNA in health care setting. Will adjust antibiotics based on cultures. RN informs me that patient now DNR. Case dw Trina Mazariegos MD Oct 13, 2015 12:54
[2015-10-13] MEDS: COLLAGENASE OINT 30 GM TUBE TOP SCH (13:12)
[2015-10-13] MEDS: MEROPENEM INJ 1,000 MG in SODIUM CHLORIDE 0.9% INJ 100 ML IV SCH ×2 (14:43→20:58)
[2015-10-13] MEDS ORDERED: MICAFUNGIN INJ 150 MG in SODIUM CHLORIDE 0.9% INJ 100 ML IV SCH (15:00)
[2015-10-13] MEDS: ENOXAPARIN SODIUM 40 MG/0.4 ML SYRINGE SQ SCH (21:01)
[2015-10-13] MEDS: OLANZapine 5 MG TAB GT SCH (21:02)
[2015-10-14] VITALS (19 sets, daily range): BP systolic 111–146; BP diastolic 70–88; PULSE 62–94; RESP 17–23; TEMP 98–98.3; O2SAT 95–100
[2015-10-14] MEDS: DEXT 5%-NACL 0.9% 1000 ML INJ 1,000 ML IV SCH ×3 (00:32→21:52)
[2015-10-14] MEDS: RESP: ALBUTEROL 2.5 MG/IPRATROPIUM 0.5 MG NEB (SCH) NEB ×4 (03:53→19:19)
[2015-10-14] MEDS: INSULIN NovoLIN REGULAR SUPPLEMENTAL SCALE SQ SCH ×4 (06:00→17:50)
[2015-10-14] MEDS: CARBIDOPA/LEVODOPA 25 MG/100 MG TAB GT SCH ×3 (06:03→21:50)
[2015-10-14] MEDS: clonazePAM 1 MG TAB PO SCH ×3 (06:03→21:51)
[2015-10-14] MEDS: MEROPENEM INJ 1,000 MG in SODIUM CHLORIDE 0.9% INJ 100 ML IV SCH ×3 (06:16→21:51)
[2015-10-14 06:45] LABS: AUTOMATED NEUTROPHIL # 3.8 TH/MM3 (1.8-7.7); BASOPHIL # 0.3 TH/MM3 (0-0.2); BASOPHIL % 6.4 % (0.0-2.0); EOSINOPHIL # 0.1 TH/MM3 (0-0.4); EOSINOPHIL % 2.4 % (0.0-4.0); HEMATOCRIT 26.9 % (39.0-51.0); HEMO FLAGS DIFF FINAL; LYMPH % 10.9 % (9.0-44.0); LYMPHOCYTE # 0.6 TH/MM3 (1.0-4.8); MEAN CORPUSCULAR HEMOGLOBIN 26.6 PG (27.0-34.0); MEAN CORPUSCULAR HGB CONC 32.5 % (32.0-36.0); MONO % 6.6 % (0.0-8.0); NEUT % 73.7 % (16.0-70.0); PLATELET COUNT 120 TH/MM3 (150-450); RED BLOOD COUNT 3.29 MIL/MM3 (4.50-5.90); RED CELL DISTRIBUTION WIDTH 17.8 % (11.6-17.2); WHITE BLOOD COUNT 5.1 TH/MM3 (4.0-11.0)
[2015-10-14 07:01] LABS: BICARBONATE 29.7 MEQ/L (21.0-32.0); MAGNESIUM 1.6 MG/DL (1.5-2.5); POTASSIUM 3.4 MEQ/L (3.5-5.1)
[2015-10-14] MEDS ORDERED: POTASSIUM CL 40 MEQ/30 ML LIQ UDC PO/TUBE PRN ×2 (09:00)
[2015-10-14] MEDS ORDERED: MAGNESIUM SULFATE INJ 4 GM in SODIUM CHLORIDE 0.9% INJ 92 ML IV PRN (09:00)
[2015-10-14] MEDS ORDERED: MAGNESIUM SULFATE INJ 2 GM in SODIUM CHLORIDE 0.9% INJ 96 ML IV PRN (09:00)
[2015-10-14] MEDS ORDERED: POTASSIUM PHOSPHATE MONOBASIC 500 MG TAB PO/TUBE PRN (09:00)
[2015-10-14] MEDS ORDERED: MAGNESIUM OXIDE 400 MG TAB PO PRN (09:00)
[2015-10-14] MEDS ORDERED: POTASSIUM PHOSPHATE INJ 30 MMOL in SODIUM CHLOR 0.9% 250 ML INJ 250 ML IV PRN (09:00)
[2015-10-14] MEDS ORDERED: POTASSIUM CHLOR 20 MEQ PREMIX 100 ML IV PRN ×2 (09:00)
[2015-10-14] MEDS ORDERED: POTASSIUM CHLOR 40 MEQ PREMIX 100 ML IV PRN ×2 (09:00)
[2015-10-14] MEDS: SODIUM CHLORIDE 0.9% FLUSH 5 ML FLUSH IVF SCH ×2 (09:00→21:51)
--- NOTE | 2015-10-14 09:21 | HHI.CCPN ---
Subjective Remarks/Hospital Course 06/17: Pt is a 54 yr man with multiple medial problems including Parkinson's disease, advanced dementia, hyponatremia, anxiety, pneumonia, GERD, cognitive disorder, and multidrug resistant UTI- ESBL02/19/15 , who resides in a fdc. Pt by report was found by staff in fdc to be less alert and having respiratory difficultly and fevers. Pt was brought to ED adn placed on ventilator. His workup was inclusive of labs, chest xray and ct head and abd/pelvis. WBC 16.4, +UTI, lactic acid 4, troponin ,0.02, BUN/ cre 18/ 0.76. CT head 06/18/15: diffuse atrophy unchanged. No acute intracranial findings ct abd/ pelvis with IV contrast: 06/18/15 Conclusion: 1. Chronic nonspecific urinary bladder wall thickening. Bladder collapsed with Putnam catheter in place. 2.Chronic bilateral mid to lower zone groundglass opacity. 3. Nonobstructing left renal calculus. 4. Distended rectum Pt admitted and fluid and abx ordered. 06/18: Drowsy, easily arousable. On mechanical ventilation via tracheostomy. Tachypneic. Resting tremor noted. 06/19: Drowsy, arousable. On mechanical ventilation via tracheostomy. 06/20: Drowsy, arousable. Remains on mechanical ventilation via tracheostomy. We'll repeat blood cultures, UA and urine cultures. Fluconazole IV added in view of yeast in urine. 07/06: Reconsulted as patient return to the ventilator on a right ventricular due to tachypnea. Low-grade temperatures. Tolerating tube feeding. Extremity encephalopathic demented patient with difficult neurological examination. 07/07: Status post chest tube placement by IR for right pneumothorax 07/06. Afebrile. Tolerating tube feeds. Positive BM. Currently tachypneic on the ventilator. Does not appear to be any acute distress. 07/08: Afebrile. Tolerating tube feeding. He is comfortable currently on CPAP trials 11/10. Positive BM. 07/09: Afebrile. Tolerating tube feeding. Appears comfortable on T bar. Positive BM. 07/10: Afebrile. Eyes are open. Remained on T piece overnight. Tolerating tube feeding. 07/11: MAXIMUM TEMPERATURE 100. Currently 98.6. Eyes are open. On ACV overnight secondary to "tachypnea and sweating". Switching back to PSV trials today. Goal is T piece during daytime, CPAP at night. 07/12: No acute events overnight. On PSV 15/5 -attempt TP up to 6 hours today. No pneumothorax on chest x-ray 07/13: Placed back on full ventilator support for tachypnea. Otherwise clinically unchanged. No fever today 07/14: Patient was on T piece yesterday evening, placed back on PSV overnight, patient mechanical ventilation this morning. Patient appears to be struggling with mechanical ventilation. Patient placed back on PSV with improvement 07/15: Patient placed back on mechanical ventilation last evening due to respiratory rate. It was indicated patient was tachypnea can the 40s. Patient on mechanical ventilation this time with respiration rate mid 20s. Chest tube still in place without any output, chest x-ray still indicating resolution of pneumothorax. 07/16: Patient seen and examined today. Patient placed back on mechanical ventilation overnight due to respiratory rate. Even on mechanical ventilation patient has respiration rate in the 30s. Patient afebrile, blood pressure stable. Continue vent weaning 07/17: Patient seen and examined. Currently afebrile. Currently on CPAP 15/5 @ 40%. Patient is awake with open mouth resting in bed in no apparent acute distress. Tolerating tube feeding. 2 bowel movements. 07/18: No neurological changes. Afebrile. 2 bowel moments. Tolerating tube feeding. We'll attempt TP trials today. On CPAP since 07/15 07/19 No events overnight. On CPAP with PS: 10, PEEP: 5 and FIO2 35%. Afebrile. On no sedation. 07/20 No events overnight. Tolerating CPAP. Afebrile. 07/21: Remains on CPAP. Attempt T piece trial today. Afebrile. One bowel movement. Tolerating tube feeding. 07/22: Afebrile. Positive BM. Tolerating tube feeding. Noted switched tracheostomy to #6 Shiley cuffed fenestrated. Neurologically unchanged 07/23: Afebrile. Positive BM. Tolerating tube feeding. Questionable leak in exchange trach. Place back on a rate/ACV overnight. Insufflated seems to be doing better at the present time. Will check chest x-ray. Possible he might need #6 XLT versus replacement of chronic #8 Shiley. 07/24: Tolerating TP today, RR in low 30s patient appears comfortable. No acute events overnight 07/25: Remains off the ventilator more than 36 hours now. Intermittently tachypneic probably breathing. Chest x-ray was clear yesterday. No acute events reported overnight. PEG not functioning per RN 08/02: Patient was transferred back to critical care service due to continuing ventilator management, tachypnea. Patient clinical status with no significant change. Patient with low-grade fever 100.2, 08/03: Patient seen and examined today. No significant change in clinical status. Patient still with chronic tachypnea. Patient afebrile now. 08/04: Patient seen and examined today. No change in clinical status. Patient still continues to have chronic tachypnea. Patient afebrile. Continue vent weaning 08/05: Patient seen and examined today. Patient had chest tube removed yesterday , chest x-ray shows redevelopment of pneumothorax. Chest tube replaced. Otherwise, patient still on ventilator with tachypnea. Afebrile 08/06: Patient seen and examined today. Patient went to have chest tube placed, repeat chest x-ray did not indicate any pneumothorax. No overnight events. We' ll need to pursue LTAC placement 08/07 No events overnight. On ventilator via trach. Afebrile. 08/08 Patient tolerated CPAP x4 hrs yesterday. Afebrile. On no sedation. 08/09 No events overnight. Tolerated CPAP x 12 hrs yesterday. Afebrile. 08/10 Patient tolerated TP's x 12 hrs yesterday back on ACV overnight. 08/11 No events overnight, currently on TP's with 40% FIO2. Afebrile. 08/12 On CPAP 10/5. Tolerated Tpiece 3 hours earlier today. Afebrile. 08/13 On CPAP 10/5. Not tolerating CPAP as well over last few days and RT notes challenge with suctioning respiratory secretions adequately. Discussing with healthcare proxy regarding exchange trach to 8.0. 08/14 Nursing and RT staff having continued difficulty suctioning respiratory secretions via 6.0 tracheostomy. KAREN Garcia did not consent to stoma dilation and trach upsize yesterday but said she would call back and let me know but no return call. Contacted again today and left a message. Afebrile. On CPAP 10/5. Brow furrowing on exam, appears to be in pain but pain not localizable. Tolerating tube feeds, had BM yesterday 08/15 Not tolerating CPAP today. Contacted healthcare surrogate again and discussed need for trach change. She consented and trach was dilated and up- sized to 8.0 Distal XLT to facilitate pulmonary toilet and to address volume leak. 08/16 No events overnight. Remains on ventilator via trach. Afebrile. Tolerating TF. 08/17 No events overnight. Afebrile. 08/18 Patient tolerated CPAP x 4 hrs yesterday. Afebrile.On ventilator via trach. 08/19 On CPAP 25/06. Temp max 99.3 08/20 Stenotrophomonas in sputum, started on Levaquin per ID. Temp max 99.8. On CPAP 20/09. Tube feeds were held because PEG was clogged but now PEG is functioning. 08/21 No events overnight. Afebrile. Remains on ventilator via trach. Has been tolerating CPAP trials for last 2 days. 08/22 No events overnight. Afebrile , Has been on CPAP all night with PS: 20, PEEP; 5 and FIO2 35%. 08/23 No events overnight. Remains on CPAP, T:99.9 08/24 No events overnight. On CPAP PS 10, PEEP; 5 and FIO2 35% overnight. Afebrile. 08/25 No events overnight. Afebrile. On CPAP overnight with PS 8, PEEP: 5 and FIO2 35%, afebrile. Tolerating TF. 08/26 Tolerating Tpiece. 08/27 Tolerated Tpiece yesterday and overnight. However this evening desaturated and was placed back on CPAP. Dr. Mistry attempted to update daughter Radha Foreman and discuss his overall poor prognosis for recovery, but call got disconnected midway through call and could not reach her back 08/28 On PSV 10/5 40% today. Afebrile. 08/29 On CPAP overnight. Now on Tpiece 70% per pulmonology. Increased yellow secretions noted. Temp max 99.1 Nursing staff expresses concern that he appears uncomfortable during all nursing care. Called elsa Garcia to update , no answer, left message to call me. 08/30: On CPAP overnight. Currently on T piece at 45%. Currently afebrile. Positive BM. Tolerating tube feeding. 08/31: On CPAP overnight. Will return T piece at 35%. MAXIMUM TEMPERATURE 99.6. 5 bowel movements. Tolerating tube feeds. Neurological examination unchanged. 09/01: Tmax 99.2. Currently afebrile. Currently in TPs at 35%. 7 bowel movement overnight. Tolerating tube feeding. Subjective: 09/19: Ciarra called secondary to aspiration on Gen. medical floor. Transfer to ICU and placed on mechanical ventilation. ABG shows CO2 retention. Etc. revealed no acute cardiac 20 finds however copious message to feed suctioned from trach tube 09/20 No events overnight. Afebrile. On ACV with RR 16, TV 500, PEEP: 5 and FIO2 40%. 09/21 No events overnight. Afebrile. 09/22 No events overnight. Tolerated CPAP all day yesterday with PS 12, PEEP:5 and FIO2 35%. Afebrile. 09/23 No events overnight. On no sedation Tolerated CPAP yesterday. Had T:100.3 last night. 09/24 Patient tolerated TP's x 6 hrs yesterday On CPAP 12/5 with 35% FIO2 overnight. Afebrile. 09/25 No events overnight. On CPAP overnight and TP's during day. Tolerating tube feeds. 10/11 Reconsult: Ciarra was called as patient was found hypotensive with SBP 80' s and tube feeds coming from trach site. Patient is receiving 1L bolus NS and STAT CXR showed mild pulm edema. On arrival to ICU patient was connected to ventilator ( On ACV RR 16, TV 500, PEEP:5 and FIO2 40% with sats 95%. Current BP 125/91 , P:81 10/12 Patient remains on ventilator overnight. Borderline low BP with MAP ranges 67-72. Afebrile. On no sedation. 10/13 Patient is on ventilator via trach, afebrile, WBC trending down. Patient was hypotensive yesterday responded to fluid resuscitation not on any pressors. Objective - Vital Signs Date Time Temp Pulse Resp B/P Pulse Ox O2 Delivery O2 Flow Rate FiO2 10/14/15 08:37 97 40 10/14/15 07:00 Mechanical Ventilator 6.00 10/14/15 06:00 62 10/14/15 04:00 98.2 17 111/70 Intake and Output 10/13/15 10/13/15 10/14/15 08:00 16:00 00:00 Intake Total 426 ml 2600 ml 1430 ml Output Total 250 ml 130 ml 650 ml Balance 176 ml 2470 ml 780 ml Result Diagram: 10/14/15 0526 10/14/15 0526 Other Results Laboratory Tests Test 10/14/15 05:26 White Blood Count 5.1 TH/MM3 Red Blood Count 3.29 MIL/MM3 Hemoglobin 8.7 GM/DL Hematocrit 26.9 % Mean Corpuscular Volume 82.0 FL Mean Corpuscular Hemoglobin 26.6 PG Mean Corpuscular Hemoglobin 32.5 % Concent Red Cell Distribution Width 17.8 % Platelet Count 120 TH/MM3 Mean Platelet Volume 8.8 FL Neutrophils (%) (Auto) 73.7 % Lymphocytes (%) (Auto) 10.9 % Monocytes (%) (Auto) 6.6 % Eosinophils (%) (Auto) 2.4 % Basophils (%) (Auto) 6.4 % Neutrophils # (Auto) 3.8 TH/MM3 Lymphocytes # (Auto) 0.6 TH/MM3 Monocytes # (Auto) 0.3 TH/MM3 Eosinophils # (Auto) 0.1 TH/MM3 Basophils # (Auto) 0.3 TH/MM3 CBC Comment DIFF FINAL Differential Comment Sodium Level 140 MEQ/L Potassium Level 3.4 MEQ/L Chloride Level 104 MEQ/L Carbon Dioxide Level 29.7 MEQ/L Anion Gap 6 MEQ/L Blood Urea Nitrogen 8 MG/DL Creatinine 0.21 MG/DL Estimat Glomerular Filtration 475 ML/MIN Rate Random Glucose 124 MG/DL Calcium Level 8.1 MG/DL Phosphorus Level 2.0 MG/DL Magnesium Level 1.6 MG/DL Random Vancomycin Level 3.9 COMMENT Imaging Last Impressions Chest X-Ray 10/13/15 0600 Signed Impressions: Service Date/Time: Tuesday, October 13, 2015 03:51 - CONCLUSION: Mild left base consolidation superimposed on chronic interstitial lung disease, not significantly changed. Erlin Escobar MD Upper Extremity Ultrasound 10/13/15 0000 Signed Impressions: Service Date/Time: Tuesday, October 13, 2015 09:51 - CONCLUSION: 1. No evidence of deep venous thrombosis. John Anderson MD Abdomen X-Ray 10/12/15 0000 Signed Impressions: Service Date/Time: Monday, October 12, 2015 17:37 - CONCLUSION: 1. Gastrostomy tube in place 2. Unremarkable bowel gas pattern. Salazar Thurman MD Renal Ultrasound 10/07/15 0000 Signed Impressions: Service Date/Time: Wednesday, October 07, 2015 18:29 - CONCLUSION: 1. No acute findings. 3.6 cm left renal cyst. Putnam catheter in bladder. Amaury Ellsworth MD Tunnelled Chest Tube Removal 08/05/15 1100 Signed Impressions: Service Date/Time: Wednesday, August 05, 2015 11:00 - CONCLUSION: Uncomplicated chest tube removal. Blaine Jackson MD Chest Tube Change 07/31/15 0000 Signed Impressions: Service Date/Time: Friday, July 31, 2015 14:34 - CONCLUSION: Uncomplicated reposition of previously placed chest tube as above. Blaine Jackson MD Chest Tube Insertion 07/30/15 0000 Signed Impressions: Service Date/Time: July 14:50 - CONCLUSION: Uncomplicated chest tube placement as above. Blaine Jackson MD Catheter Change 07/27/15 0000 Signed Impressions: Service Date/Time: Monday, July 27, 2015 14:43 - CONCLUSION: Uncomplicated gastrostomy tube exchange as above. Blaine Jackson MD Chest CT 07/11/15 0000 Signed Impressions: Service Date/Time: Saturday, July 11, 2015 09:49 - CONCLUSION: Scattered patchy densities significantly improved from previous study. Tiny anterior right basilar pneumothorax. Right-sided chest tube in good position. Néstor Matamoros MD Head CT 06/18/151902 Signed Impressions: Service Date/Time: June 19:31 - CONCLUSION: Diffuse atrophy unchanged. No acute intracranial findings. Kush Briscoe MD Abdomen/Pelvis CT 06/18/151902 Signed Impressions: Service Date/Time: June 19:36 - CONCLUSION: 1. Chronic nonspecific urinary bladder wall thickening. Bladder collapsed with Putnam catheter in place. 2. Chronic bilateral mid to lower lung zone groundglass opacity. 3. Nonobstructing left renal calculus. 4. Distended rectum. Kush Briscoe MD Objective Remarks GENERAL: 54-year-old male, cachectic, debilitated with contractures on ventilator via trach. HEENT: NC/AT. PERRL. MMM. OP without erythema or exudates NECK: No JVD. Supple. 8.0 Distal XLT trach in place CARDIAC: RRR. S1/S2. No S4. No murmurs, clicks gallops or rubs. LUNGS: B/L eqal air entry with few coarse BS ABDOMEN: S/NT/ND. Positive BS EXTREMITIES: 1+ dependent pedal edema. Contractures and deformities of fingers. Stage III coccyx/sacral decubitus ulcer NEUROLOGY: Patient with significant contractures of the bilat lower extremity, upper extremities. Eyes open spontaneously. Temporal and facial muscle wasting , muscular atrophy all extremities. Procedures 07/26- PEG replacement 07/29- right pigtail catheter placement for new pneumothorax Date of Insertion: Oct 05, 2015 A/P Assessment and Plan Neuro/Psych: Parkinson's disease Cognitive disorder not otherwise specified Chronic encephalopathy Dementia Depression On no sedation, monitor neuro status CT head 06/18/15: - diffuse atrophy unchanged. No acute intracranial findings Continue Sinemet 25/100 q8 via PEG, Seroquel 50 mg twice a day, olanzapine 5 mg a night, Klonopin 2 mg every 8 hours, Paxil 20 daily Continue Lortab when necessary pain and fentanyl patch 50 g every 3 days for pain management. Fentanyl bolus prn breakthrough pain or if needed for turning/ nursing care/etc. Resp: Acute on chronic respiratory failure Chronic trach #8 Shiley distal XLT Pneumonia - resolved Right pneumothorax status post pigtail catheter 2 (resolved) Continue with vent support keep sat >92% Ventilator bundle, pulm toilet, trach care, Pulmonary Dr. Restrepo following. On Prednisone 60mg daily Exchanged to 8 Distal XLT on 08/15 to facilitate suctioning, trach care. Bronchodilators ( DuoNeb) CXR 10/12- Mild left base consolidation superimposed on chronic interstitial lung disease, not significantly changed. Cardiac History of orthostasis History of CAD History dyslipidemia History of hypertension Continue Midodrine 5 mg BID Monitor HR and BP keep MAP>65mmHg. Lactic acid 2.4 10/11 GI: Chronic moderate protein energy malnutrition Dysphagia Status post PEG Internal hemorrhoids Gastroesophageal reflux disease - 10/11 KUB abdomen: PEG tube in place. Unremarkable bowel gas pattern. -On TF Jevity 1.5 advance to goal rate 60ml/hr, on Reglan 5mg Q8 PRN for high residuals. - On Prevacid 30 mg per PEG tube daily for GERD FEN/Renal: Nonobstructing left renal calculus - Monitor renal function, I/O's. electrolytes replacement per protocol. Will need K, Phos replacement today -On D5NS@100ml/hr, ID: 10/12 BC: NGTD 10/11 BC: NGTD 10/11 Urine cx: Yeast 10/11 Sputum: GNR 10/10 Urine: C. Tropicalis 09/21 Urine cx: Pseudomonas ? colonized 09/19 Sputum cx: Pseudomonas, Kleb pneumonia ESBL pos Candiduria (cele tropicalis urine cx 08/17) ESBL positive Klebsiella/Pseudomonas pneumonia Stenotrophomonas in sputum 08/17 MRSA colonization sepsis UTI Klebsiella ESBL positive (has been treated) Continue with abx ( Merrem, Micafungin) s/p Vanco 1gram x1 10/12, follow up on cxs and monitor for signs of infections ( Fever, WBC) ID service is following- Dr. Enoc Moss Endo: On SSI ( medium) with accuchecks Q6. Heme Normocytic Anemia - Monitor CBC MSK Bilateral lower extremity Contractures Stage III sacral decubitus present on admission - Wound care and PT on case Prophylaxis - GI - Prevacid - DVT - SCDs/ Lovenox. ACCESS: PIVs CCT 30 mins Antonio Carr MD Oct 14, 2015 09:21
[2015-10-14] MEDS: QUEtiapine FUMARATE 25 MG TAB G-TUBE SCH ×2 (09:35→21:51)
[2015-10-14] MEDS: GABAPENTIN 300 MG CAP G-TUBE SCH ×2 (09:35→21:51)
[2015-10-14] MEDS: predniSONE 20 MG TAB PO SCH (09:35)
[2015-10-14] MEDS: LANSOPRAZOLE SOLUTAB 30 MG TAB NG SCH (09:35)
[2015-10-14] MEDS: MIDODRINE 5 MG TAB G-TUBE SCH ×2 (09:35→21:51)
[2015-10-14] MEDS: PARoxetine HCL 20 MG TAB G-TUBE SCH (09:35)
[2015-10-14] MEDS: LACTOBACILLUS ACIDOPHILUS TAB PO SCH ×3 (09:35→17:49)
[2015-10-14] MEDS: ARTIFICIAL TEARS OPTH SOLN 15 ML BTL EACH EYE SCH ×3 (09:36→17:49)
[2015-10-14] MEDS: COLLAGENASE OINT 30 GM TUBE TOP SCH (09:36)
[2015-10-14] MEDS: CHLORHEXIDINE 0.12% (ORAL KIT) 15 ML CUP MT SCH ×2 (09:36→21:50)
--- NOTE | 2015-10-14 11:47 | HHI.PR ---
Subjective Remarks Transferred to IM after Halicat on Monday, Following aspiration. Was hypotensive and febrile, and received antibiotics, and Cultures done. Awake and on vent support .A/C rate 16, FIO2 40 %.. Neuro status same. Off tube feeds. Has no fever.Hemodynamics better .Off pressors. Objective Vital Signs Date Time Temp Pulse Resp B/P Pulse Ox O2 Delivery O2 Flow Rate FiO2 10/14/15 11:07 98 40 10/14/15 10:00 77 10/14/15 08:37 97 40 10/14/15 08:00 98.3 65 22 146/88 98 10/14/15 08:00 68 10/14/15 08:00 40 10/14/15 07:00 Mechanical Ventilator 6.00 40 10/14/15 06:00 62 10/14/15 04:00 40 10/14/15 04:00 98.2 71 17 111/70 100 10/14/15 04:00 71 10/14/15 03:40 100 40 10/14/15 02:00 66 10/14/15 00:30 99 40 10/14/15 00:00 64 10/14/15 00:00 40 10/14/15 00:00 98.0 64 18 129/81 99 10/13/15 22:10 98 40 10/13/15 22:00 74 10/13/15 20:00 71 10/13/15 20:00 40 10/13/15 20:00 97.7 70 17 113/69 98 10/13/15 19:41 98 40 10/13/15 19:15 98 Mechanical Ventilator 40 10/13/15 18:00 57 10/13/15 16:40 97 40 10/13/15 16:00 98.1 59 20 94/57 96 10/13/15 16:00 59 10/13/15 16:00 40 10/13/15 14:00 60 10/13/15 12:12 96 40 10/13/15 12:00 97.6 57 18 88/53 96 10/13/15 12:00 40 10/13/15 12:00 57 I/O 10/13/15 10/13/15 10/13/15 10/14/15 10/14/15 10/14/15 07:00 15:00 23:00 07:00 15:00 23:00 Intake Total 426 ml 2600 ml 1430 ml 872 ml Output Total 250 ml 130 ml 650 ml 800 ml Balance 176 ml 2470 ml 780 ml 72 ml IV Total 426 ml 2600 ml 1334 ml 746 ml Tube Feeding 0 ml 46 ml 76 ml Other 50 ml 50 ml Output Urine Total 250 ml 130 ml 650 ml 800 ml # Bowel Movements 0 1 0 1 Result Diagram: 10/14/1552510/14/15525 Objective Remarks This is a thin white male who is unresponsive ,with a trach tube in place. HEENT: Pupils are equal and reactive to light. Throat clear CHEST:Decreased breath sounds ,Crackles scattered,with few wheezes . CARDIOVASCULAR: S1 and S2 is normal.No murmur. ABDOMEN: Soft, nondistended. BS +. He has a PEG tube in place. EXTREMITIES: No edema.muscle wasting. Decubitus ++. NEURO: Lethargic , and has weak extremities .Reflexes not elicited.Skin is dry. Assessment and Plan Assessment and Plan IMPRESSION 1. Acute on Chronic Respiratory failure. 2. Sepsis, Aspiration . 3. Shock. 4. Tracheobronchitis 5. Parkinson's disease 6. Dementia. 7. Severe Deconditioning. Plan : 1. A/C rate 12, PEEP +5, FIO2 35 %. 2. Nebs qid , duoneb. 3.Resume Tube feeds at 40 CC 4. Antibiotics per ID. 5. Levsin .25 mg tid for Secretions 6. Cont Trach toilet and lavage. 8. CBC,BMP in am 9. No sedation. Darren Kiser MD Oct 14, 2015 11:47
--- NOTE | 2015-10-14 11:56 | HHI.IDPN ---
Subjective Subjective Remarks Chart reviewed. Patient known to me. ID was reconsulted few days back from abnormal UA (not treated). Now reconsulted for overnight events that are new indicative of new infectious process. Was on [facility] and transferred as a [facility] due to being found on the floor, hypotensive and obvious aspiration of tube feed contents s/o aspiration. Overnight events reviewed. Temps ok. Bp better, responded to fluid boluses. Hypotension appears to be prerenal, lactic acid normal. Negative I/O on 4[facility]. Not on pressors. Urine output better. Antibiotics Meropenem IV Micafungin IV Vanco IV x 1 dose. Lines Peripheral IV with no e/o infection Past Medical History reviewed Allergies: Coded Allergies: *MDRO Multi-Drug Resistant Organism (Verified Adverse Reaction, Unknown, ) ESBL E. coli (urine) - 02/19/2015; ESBL K. pneumoniae (sputum) - 06/18/15, (urine) - 08/03/15,(sputum) - 08/03/15, (sputum) - 09/20/15 MRSA PCR POSITIVE - 03/20/2015 MDR-Pseudomonas (sputum)- 08/18/15, 09/20/15 Objective . Vital Signs Date Time Temp Pulse Resp B/P Pulse Ox O2 Delivery O2 Flow Rate FiO2 10/14/15 11:07 98 40 10/14/15 10:00 77 10/14/15 08:37 97 40 10/14/15 08:00 98.3 65 22 146/88 98 10/14/15 08:00 68 10/14/15 08:00 40 10/14/15 07:00 Mechanical Ventilator 6.00 40 10/14/15 06:00 62 10/14/15 04:00 40 10/14/15 04:00 98.2 71 17 111/70 100 10/14/15 04:00 71 10/14/15 03:40 100 40 10/14/15 02:00 66 10/14/15 00:30 99 40 10/14/15 00:00 64 10/14/15 00:00 40 10/14/15 00:00 98.0 64 18 129/81 99 10/13/15 22:10 98 40 10/13/15 22:00 74 10/13/15 20:00 71 10/13/15 20:00 40 10/13/15 20:00 97.7 70 17 113/69 98 10/13/15 19:41 98 40 10/13/15 19:15 98 Mechanical Ventilator 40 10/13/15 18:00 57 10/13/15 16:40 97 40 10/13/15 16:00 98.1 59 20 94/57 96 10/13/15 16:00 59 10/13/15 16:00 40 10/13/15 14:00 60 10/13/15 12:12 96 40 10/13/15 12:00 97.6 57 18 88/53 96 10/13/15 12:00 40 10/13/15 12:00 57 10/13/15 10/13/15 10/14/15 15:00 23:00 07:00 Intake Total 2600 ml 1430 ml 872 ml Output Total 130 ml 650 ml 800 ml Balance 2470 ml 780 ml 72 ml IV Total 2600 ml 1334 ml 746 ml Tube Feeding 0 ml 46 ml 76 ml Other 50 ml 50 ml Output Urine Total 130 ml 650 ml 800 ml # Bowel Movements 1 0 1 . Laboratory Tests Test 10/12/15 10/13/15 10/14/15 17:51 04:52 05:26 White Blood Count 10.1 TH/MM3 11.9 TH/MM3 5.1 TH/MM3 Red Blood Count 4.29 MIL/MM3 3.88 MIL/MM3 3.29 MIL/MM3 Hemoglobin 11.5 GM/DL 10.2 GM/DL 8.7 GM/DL Hematocrit 35.8 % 31.8 % 26.9 % Mean Corpuscular Volume 83.5 FL 82.0 FL 82.0 FL Mean Corpuscular Hemoglobin 26.7 PG 26.3 PG 26.6 PG Mean Corpuscular Hemoglobin 32.0 % 32.1 % 32.5 % Concent Red Cell Distribution Width 17.4 % 17.2 % 17.8 % Platelet Count 155 TH/MM3 144 TH/MM3 120 TH/MM3 Mean Platelet Volume 8.8 FL 9.7 FL 8.8 FL Neutrophils (%) (Auto) 94.4 % 83.7 % 73.7 % Lymphocytes (%) (Auto) 4.1 % 8.3 % 10.9 % Monocytes (%) (Auto) 1.4 % 7.0 % 6.6 % Eosinophils (%) (Auto) 0.0 % 0.9 % 2.4 % Basophils (%) (Auto) 0.1 % 0.1 % 6.4 % Neutrophils # (Auto) 9.5 TH/MM3 10.0 TH/MM3 3.8 TH/MM3 Lymphocytes # (Auto) 0.4 TH/MM3 1.0 TH/MM3 0.6 TH/MM3 Monocytes # (Auto) 0.1 TH/MM3 0.8 TH/MM3 0.3 TH/MM3 Eosinophils # (Auto) 0.0 TH/MM3 0.1 TH/MM3 0.1 TH/MM3 Basophils # (Auto) 0.0 TH/MM3 0.0 TH/MM3 0.3 TH/MM3 CBC Comment DIFF FINAL DIFF FINAL DIFF FINAL Differential Comment Laboratory Tests Test 10/12/15 10/12/15 10/13/15 10/13/15 17:51 17:57 00:43 04:52 Sodium Level 137 MEQ/L 138 MEQ/L Potassium Level 5.0 MEQ/L 4.4 MEQ/L 3.9 MEQ/L Chloride Level 98 MEQ/L 100 MEQ/L Carbon Dioxide Level 33.9 MEQ/L 33.1 MEQ/L Anion Gap 5 MEQ/L 5 MEQ/L Blood Urea Nitrogen 11 MG/DL 14 MG/DL Creatinine 0.37 MG/DL 0.42 MG/DL Estimat Glomerular Filtration 247 ML/MIN 214 ML/MIN Rate Random Glucose 115 MG/DL 91 MG/DL Calcium Level 8.7 MG/DL 8.9 MG/DL Magnesium Level 1.7 MG/DL 1.8 MG/DL Lactic Acid Level 2.4 mmol/L Test 10/14/15 05:26 Sodium Level 140 MEQ/L Potassium Level 3.4 MEQ/L Chloride Level 104 MEQ/L Carbon Dioxide Level 29.7 MEQ/L Anion Gap 6 MEQ/L Blood Urea Nitrogen 8 MG/DL Creatinine 0.21 MG/DL Estimat Glomerular Filtration 475 ML/MIN Rate Random Glucose 124 MG/DL Calcium Level 8.1 MG/DL Phosphorus Level 2.0 MG/DL Magnesium Level 1.6 MG/DL Microbiology Date/Time Procedure Status Source Growth 10/11/15 15:00 Urine Culture - Final Complete Urine Catheterized Urine Heena Tropicalis 10/12/15 17:27 Gram Stain - Final Resulted Sputum Endotracheal 10/12/15 17:27 Sputum Culture - Preliminary Resulted Gram Negative Jesse 10/12/15 17:30 Urine Culture - Final Complete Urine Catheterized Urine Heena Tropicalis 10/12/15 17:52 Aerobic Blood Culture - Preliminary Resulted Blood Peripheral NO GROWTH IN 2 DAYS 10/12/15 17:52 Anaerobic Blood Culture - Preliminary Resulted Blood Peripheral NO GROWTH IN 2 DAYS 10/12/15 17:58 Aerobic Blood Culture - Preliminary Resulted Blood Peripheral NO GROWTH IN 2 DAYS 10/12/15 17:58 Anaerobic Blood Culture - Preliminary Resulted Blood Peripheral NO GROWTH IN 2 DAYS 10/13/15 14:27 Aerobic Blood Culture - Preliminary Resulted Blood Other NO GROWTH IN 1 DAY 10/13/15 14:27 Anaerobic Blood Culture - Preliminary Resulted Blood Other NO GROWTH IN 1 DAY 10/13/15 14:32 Aerobic Blood Culture - Preliminary Resulted Blood Other NO GROWTH IN 1 DAY 10/13/15 14:32 Anaerobic Blood Culture - Preliminary Resulted Blood Other NO GROWTH IN 1 DAY Imaging Chest X-Ray 10/05/15 0000 Signed Impressions: Service Date/Time: Monday, October 05, 2015 19:56 - CONCLUSION: Hyperinflation with no acute cardiopulmonary process. Scott Goode MD Chest X-Ray 09/25/15 0000 Signed Impressions: Service Date/Time: Friday, September 25, 2015 09:28 - CONCLUSION: No acute disease. Tai Taylor Jr., MD Abdomen X-Ray 09/21/15 0000 Signed Impressions: Service Date/Time: Monday, September 21, 2015 11:31 - CONCLUSION: Normal bowel gas pattern. Tai Taylor Jr., MD Tunnelled Chest Tube Removal 08/05/15 1100 Signed Impressions: Service Date/Time: Wednesday, August 05, 2015 11:00 - CONCLUSION: Uncomplicated chest tube removal. Blaine Jackson MD Chest Tube Change 07/31/15 0000 Signed Impressions: Service Date/Time: Friday, July 31, 2015 14:34 - CONCLUSION: Uncomplicated reposition of previously placed chest tube as above. Blaine Jackson MD Chest Tube Insertion 07/30/15 0000 Signed Impressions: Service Date/Time: July 14:50 - CONCLUSION: Uncomplicated chest tube placement as above. Blaine Jackson MD Catheter Change 07/27/15 0000 Signed Impressions: Service Date/Time: Monday, July 27, 2015 14:43 - CONCLUSION: Uncomplicated gastrostomy tube exchange as above. Blaine Jackson MD Chest CT 07/11/15 0000 Signed Impressions: Service Date/Time: Saturday, July 11, 2015 09:49 - CONCLUSION: Scattered patchy densities significantly improved from previous study. Tiny anterior right basilar pneumothorax. Right-sided chest tube in good position. Néstor Matamoros MD Head CT 06/18/151902 Signed Impressions: Service Date/Time: , June 18, 2015 19:31 - CONCLUSION: Diffuse atrophy unchanged. No acute intracranial findings. Kush Briscoe MD Abdomen/Pelvis CT 06/18/151902 Signed Impressions: Service Date/Time: , June 18, 2015 19:36 - CONCLUSION: 1. Chronic nonspecific urinary bladder wall thickening. Bladder collapsed with Putnam catheter in place. 2. Chronic bilateral mid to lower lung zone groundglass opacity. 3. Nonobstructing left renal calculus. 4. Distended rectum. Kush Briscoe MD Physical Exam GENERAL: eyes closed, No interaction SKIN: No generalized rash. Cool and dry. HEENT: [place] conjunctivae, no icterus, moist mucosa NECK: Trach site looks ok. RESPIRATORY: decreased at the bases. GASTROINTESTINAL: Abdomen soft, non-tender, not distended. No hepatosplenomegaly PEG tube site clean, no evidence of infection. MUSCULOSKELETAL: No cyanosis No pedal edema. Contracted all 4 extremities. NEUROLOGICAL: Keeping his eyes closed, contractures of the extremities, no interaction. Peripheral IV line sites with no evidence of infection. ; Putnam in place, urine looks clear Assessment & Plan Remarks New sepsis (hypothermia, hypotension, sources: bacteremia, UTI, Aspiration PNA) Aspiration PNA in Health care setting. History of PSAE ESBL cath associated UTI. S/P Rx Leukocytosis, resolved Chronic respiratory failure on trach PSAE and ESBL Kleb in sputum in recent past. Chronic encephalopathy with underlying diagnosis of advanced dementia as well as advanced Parkinson's disease. Status post trach Status post gastrostomy tube with no evidence of infection. Stage II sacral decubitus ulcer present on admission. Recommendations Continue Meropenem IV (ASP documentation: has prior MDRO ESBL and PSAE in past in sputum) DC Micafungin IV. No further Vanco IV for now. If change in clinical condition ok to redose. If diarrhea check Cdiff. Likely aspiration PNA in health care setting. Will adjust antibiotics based on cultures. Code: DNR but aggressive medical management. Case dw RN Case d/w . Trina Moss MD Oct 14, 2015 11:56
[2015-10-14] MEDS: FLUCONAZOLE 400 MG PREMIX BAG 200 ML IV SCH (13:38)
[2015-10-14] MEDS: POTASSIUM PHOSPHATE MONOBASIC 500 MG TAB PO PRN ×2 (13:39→17:49)
[2015-10-14 17:53] LABS: HEMATOCRIT 28.2 % (39.0-51.0); REVIEW FLAG FINAL
[2015-10-14] MEDS: OLANZapine 5 MG TAB GT SCH (21:51)
[2015-10-14] MEDS: ENOXAPARIN SODIUM 40 MG/0.4 ML SYRINGE SQ SCH (21:51)
[2015-10-15] VITALS (19 sets, daily range): BP systolic 104–140; BP diastolic 64–92; PULSE 67–99; RESP 18–21; TEMP 97.7–98; O2SAT 96–100
[2015-10-15] MEDS: RESP: ALBUTEROL 2.5 MG/IPRATROPIUM 0.5 MG NEB (SCH) NEB ×4 (01:04→19:48)
[2015-10-15] MEDS: INSULIN NovoLIN REGULAR SUPPLEMENTAL SCALE SQ SCH ×4 (06:00→18:13)
[2015-10-15] MEDS: CARBIDOPA/LEVODOPA 25 MG/100 MG TAB GT SCH ×3 (06:31→21:33)
[2015-10-15] MEDS: clonazePAM 1 MG TAB PO SCH ×3 (06:31→21:33)
[2015-10-15] MEDS: MEROPENEM INJ 1,000 MG in SODIUM CHLORIDE 0.9% INJ 100 ML IV SCH ×3 (06:32→21:33)
[2015-10-15] MEDS: DEXT 5%-NACL 0.9% 1000 ML INJ 1,000 ML IV SCH ×2 (07:59→17:00)
[2015-10-15] MEDS: REMOVE OLD PATCH TD SCH (08:00)
[2015-10-15 08:14] LABS: AUTOMATED NEUTROPHIL # 5.2 TH/MM3 (1.8-7.7); BASOPHIL % 0.1 % (0.0-2.0); EOSINOPHIL % 0.6 % (0.0-4.0); HEMATOCRIT 27.4 % (39.0-51.0); HEMO FLAGS DIFF FINAL; LYMPH % 16.8 % (9.0-44.0); LYMPHOCYTE # 1.1 TH/MM3 (1.0-4.8); MEAN CELL VOLUME 82.6 FL (80.0-100.0); MEAN CORPUSCULAR HEMOGLOBIN 26.5 PG (27.0-34.0); NEUT % 76.5 % (16.0-70.0); PLATELET COUNT 145 TH/MM3 (150-450); RED BLOOD COUNT 3.32 MIL/MM3 (4.50-5.90); WHITE BLOOD COUNT 6.8 TH/MM3 (4.0-11.0)
[2015-10-15 08:43] LABS: BICARBONATE 30.2 MEQ/L (21.0-32.0); MAGNESIUM 1.6 MG/DL (1.5-2.5); POTASSIUM 3.7 MEQ/L (3.5-5.1)
[2015-10-15] MEDS: SODIUM CHLORIDE 0.9% FLUSH 5 ML FLUSH IVF SCH ×2 (09:00→21:33)
[2015-10-15] MEDS: MIDODRINE 5 MG TAB G-TUBE SCH ×2 (09:16→21:33)
[2015-10-15] MEDS: LACTOBACILLUS ACIDOPHILUS TAB PO SCH ×3 (09:16→18:13)
[2015-10-15] MEDS: LANSOPRAZOLE SOLUTAB 30 MG TAB NG SCH (09:16)
[2015-10-15] MEDS: QUEtiapine FUMARATE 25 MG TAB G-TUBE SCH ×2 (09:16→21:33)
[2015-10-15] MEDS: GABAPENTIN 300 MG CAP G-TUBE SCH ×2 (09:16→21:33)
[2015-10-15] MEDS: ARTIFICIAL TEARS OPTH SOLN 15 ML BTL EACH EYE SCH ×3 (09:16→17:01)
[2015-10-15] MEDS: predniSONE 20 MG TAB PO SCH (09:16)
[2015-10-15] MEDS: COLLAGENASE OINT 30 GM TUBE TOP SCH (09:17)
[2015-10-15] MEDS: CHLORHEXIDINE 0.12% (ORAL KIT) 15 ML CUP MT SCH ×2 (09:17→21:33)
[2015-10-15] MEDS: PARoxetine HCL 20 MG TAB G-TUBE SCH (09:23)
--- NOTE | 2015-10-15 09:40 | HHI.PR ---
Subjective Remarks Transferred to IM after [facility] on Monday, Following aspiration. Was hypotensive and febrile, and received antibiotics, and Cultures done. Awake and on vent support .On CPAP today , FIO2 40 %, and doing well. Neuro status same. On tube feeds. Has no fever. Objective Vital Signs Date Time Temp Pulse Resp B/P Pulse Ox O2 Delivery O2 Flow Rate FiO2 10/15/15 08:42 100 40 10/15/15 08:00 79 10/15/15 08:00 98.0 78 18 126/84 98 10/15/15 08:00 35 10/15/15 07:00 Mechanical Ventilator 6.00 35 10/15/15 06:00 78 10/15/15 04:00 97.8 67 20 140/92 100 10/15/15 04:00 67 10/15/15 04:00 35 10/15/15 04:00 100 35 10/15/15 02:00 97 10/15/15 01:02 96 35 10/15/15 00:00 99 10/15/15 00:00 97.7 82 21 104/64 97 10/15/15 00:00 35 10/14/15 22:30 99 35 10/14/15 22:00 94 10/14/15 20:00 85 10/14/15 20:00 98.3 85 20 117/77 97 10/14/15 20:00 35 10/14/15 19:17 96 35 10/14/15 19:00 Mechanical Ventilator 35 10/14/15 18:00 87 10/14/15 16:00 35 10/14/15 16:00 93 10/14/15 16:00 98.2 92 23 117/71 95 10/14/15 14:33 98 35 10/14/15 14:00 77 10/14/15 12:00 69 10/14/15 12:00 35 10/14/15 12:00 98.0 67 17 119/73 98 10/14/15 11:07 98 40 10/14/15 10:00 77 I/O 10/14/15 10/14/15 10/14/15 10/15/15 10/15/15 10/15/15 07:00 15:00 23:00 07:00 15:00 23:00 Intake Total 872 ml 1047 ml 1210 ml 1198 ml Output Total 800 ml 1500 ml 1400 ml 1300 ml Balance 72 ml -453 ml -190 ml -102 ml IV Total 746 ml 904 ml 833 ml 833 ml Tube Feeding 76 ml 143 ml 317 ml 315 ml Other 50 ml 60 ml 50 ml Output Urine Total 800 ml 1500 ml 1400 ml 1300 ml # Bowel Movements 1 1 0 1 Result Diagram: 10/15/15 0644 10/15/1544 Objective Remarks This is a thin white male who is unresponsive ,with a trach tube in place. HEENT: Pupils are equal and reactive to light. Throat clear CHEST:Decreased breath sounds ,with few wheezes . CARDIOVASCULAR: S1 and S2 is normal.No murmur. ABDOMEN: Soft, nondistended. BS +. He has a PEG tube in place. EXTREMITIES: No edema.muscle wasting. Decubitus +. NEURO: Lethargic , and has weak extremities .Reflexes not elicited.Skin is dry. Assessment and Plan Assessment and Plan IMPRESSION 1. Acute on Chronic Respiratory failure. 2. Sepsis, Aspiration . 3. Shock.Resolved. 4. Tracheobronchitis 5. Parkinson's disease 6. Dementia. 7. Severe Deconditioning. Plan : 1. A/C rate 10, PEEP +5, FIO2 35 %. 2. Nebs qid , duoneb. 3.Resume Tube feeds at 40 CC 4. CPAP today during the day. 5. Levsin .25 mg tid for Secretions 6. Cont Trach toilet and lavage. 8. Stop sedation. 9. BMP. Darren Kiser MD Oct 15, 2015 09:40
[2015-10-15] MEDS: SODIUM PHOSPHATE INJ 30 MMOL in SODIUM CHLOR 0.9% 250 ML INJ 240 ML IV PRN (09:58)
--- NOTE | 2015-10-15 10:10 | HHI.CCPN ---
Subjective Remarks/Hospital Course 06/17: Pt is a 54 yr man with multiple medial problems including Parkinson's disease, advanced dementia, hyponatremia, anxiety, pneumonia, GERD, cognitive disorder, and multidrug resistant UTI- ESBL02/19/15 , who resides in a longterm. Pt by report was found by staff in longterm to be less alert and having respiratory difficultly and fevers. Pt was brought to ED adn placed on ventilator. His workup was inclusive of labs, chest xray and ct head and abd/pelvis. WBC 16.4, +UTI, lactic acid 4, troponin ,0.02, BUN/ cre 18/ 0.76. CT head 06/18/15: diffuse atrophy unchanged. No acute intracranial findings ct abd/ pelvis with IV contrast: 06/18/15 Conclusion: 1. Chronic nonspecific urinary bladder wall thickening. Bladder collapsed with Putnam catheter in place. 2.Chronic bilateral mid to lower zone groundglass opacity. 3. Nonobstructing left renal calculus. 4. Distended rectum Pt admitted and fluid and abx ordered. 06/18: Drowsy, easily arousable. On mechanical ventilation via tracheostomy. Tachypneic. Resting tremor noted. 06/19: Drowsy, arousable. On mechanical ventilation via tracheostomy. 06/20: Drowsy, arousable. Remains on mechanical ventilation via tracheostomy. We'll repeat blood cultures, UA and urine cultures. Fluconazole IV added in view of yeast in urine. 07/06: Reconsulted as patient return to the ventilator on a right ventricular due to tachypnea. Low-grade temperatures. Tolerating tube feeding. Extremity encephalopathic demented patient with difficult neurological examination. 07/07: Status post chest tube placement by IR for right pneumothorax 07/06. Afebrile. Tolerating tube feeds. Positive BM. Currently tachypneic on the ventilator. Does not appear to be any acute distress. 07/08: Afebrile. Tolerating tube feeding. He is comfortable currently on CPAP trials 11/10. Positive BM. 07/09: Afebrile. Tolerating tube feeding. Appears comfortable on T bar. Positive BM. 07/10: Afebrile. Eyes are open. Remained on T piece overnight. Tolerating tube feeding. 07/11: MAXIMUM TEMPERATURE 100. Currently 98.6. Eyes are open. On ACV overnight secondary to "tachypnea and sweating". Switching back to PSV trials today. Goal is T piece during daytime, CPAP at night. 07/12: No acute events overnight. On PSV 15/5 -attempt TP up to 6 hours today. No pneumothorax on chest x-ray 07/13: Placed back on full ventilator support for tachypnea. Otherwise clinically unchanged. No fever today 07/14: Patient was on T piece yesterday evening, placed back on PSV overnight, patient mechanical ventilation this morning. Patient appears to be struggling with mechanical ventilation. Patient placed back on PSV with improvement 07/15: Patient placed back on mechanical ventilation last evening due to respiratory rate. It was indicated patient was tachypnea can the 40s. Patient on mechanical ventilation this time with respiration rate mid 20s. Chest tube still in place without any output, chest x-ray still indicating resolution of pneumothorax. 07/16: Patient seen and examined today. Patient placed back on mechanical ventilation overnight due to respiratory rate. Even on mechanical ventilation patient has respiration rate in the 30s. Patient afebrile, blood pressure stable. Continue vent weaning 07/17: Patient seen and examined. Currently afebrile. Currently on CPAP 15/5 @ 40%. Patient is awake with open mouth resting in bed in no apparent acute distress. Tolerating tube feeding. 2 bowel movements. 07/18: No neurological changes. Afebrile. 2 bowel moments. Tolerating tube feeding. We'll attempt TP trials today. On CPAP since 07/15 07/19 No events overnight. On CPAP with PS: 10, PEEP: 5 and FIO2 35%. Afebrile. On no sedation. 07/20 No events overnight. Tolerating CPAP. Afebrile. 07/21: Remains on CPAP. Attempt T piece trial today. Afebrile. One bowel movement. Tolerating tube feeding. 07/22: Afebrile. Positive BM. Tolerating tube feeding. Noted switched tracheostomy to #6 Shiley cuffed fenestrated. Neurologically unchanged 07/23: Afebrile. Positive BM. Tolerating tube feeding. Questionable leak in exchange trach. Place back on a rate/ACV overnight. Insufflated seems to be doing better at the present time. Will check chest x-ray. Possible he might need #6 XLT versus replacement of chronic #8 Shiley. 07/24: Tolerating TP today, RR in low 30s patient appears comfortable. No acute events overnight 07/25: Remains off the ventilator more than 36 hours now. Intermittently tachypneic probably breathing. Chest x-ray was clear yesterday. No acute events reported overnight. PEG not functioning per RN 08/02: Patient was transferred back to critical care service due to continuing ventilator management, tachypnea. Patient clinical status with no significant change. Patient with low-grade fever 100.2, 08/03: Patient seen and examined today. No significant change in clinical status. Patient still with chronic tachypnea. Patient afebrile now. 08/04: Patient seen and examined today. No change in clinical status. Patient still continues to have chronic tachypnea. Patient afebrile. Continue vent weaning 08/05: Patient seen and examined today. Patient had chest tube removed yesterday , chest x-ray shows redevelopment of pneumothorax. Chest tube replaced. Otherwise, patient still on ventilator with tachypnea. Afebrile 08/06: Patient seen and examined today. Patient went to have chest tube placed, repeat chest x-ray did not indicate any pneumothorax. No overnight events. We' ll need to pursue LTAC placement 08/07 No events overnight. On ventilator via trach. Afebrile. 08/08 Patient tolerated CPAP x4 hrs yesterday. Afebrile. On no sedation. 08/09 No events overnight. Tolerated CPAP x 12 hrs yesterday. Afebrile. 08/10 Patient tolerated TP's x 12 hrs yesterday back on ACV overnight. 08/11 No events overnight, currently on TP's with 40% FIO2. Afebrile. 08/12 On CPAP 10/5. Tolerated Tpiece 3 hours earlier today. Afebrile. 08/13 On CPAP 10/5. Not tolerating CPAP as well over last few days and RT notes challenge with suctioning respiratory secretions adequately. Discussing with healthcare proxy regarding exchange trach to 8.0. 08/14 Nursing and RT staff having continued difficulty suctioning respiratory secretions via 6.0 tracheostomy. KAREN Garcia did not consent to stoma dilation and trach upsize yesterday but said she would call back and let me know but no return call. Contacted again today and left a message. Afebrile. On CPAP 10/5. Brow furrowing on exam, appears to be in pain but pain not localizable. Tolerating tube feeds, had BM yesterday 08/15 Not tolerating CPAP today. Contacted healthcare surrogate again and discussed need for trach change. She consented and trach was dilated and up- sized to 8.0 Distal XLT to facilitate pulmonary toilet and to address volume leak. 08/16 No events overnight. Remains on ventilator via trach. Afebrile. Tolerating TF. 08/17 No events overnight. Afebrile. 08/18 Patient tolerated CPAP x 4 hrs yesterday. Afebrile.On ventilator via trach. 08/19 On CPAP 25/06. Temp max 99.3 08/20 Stenotrophomonas in sputum, started on Levaquin per ID. Temp max 99.8. On CPAP 20/09. Tube feeds were held because PEG was clogged but now PEG is functioning. 08/21 No events overnight. Afebrile. Remains on ventilator via trach. Has been tolerating CPAP trials for last 2 days. 08/22 No events overnight. Afebrile , Has been on CPAP all night with PS: 20, PEEP; 5 and FIO2 35%. 08/23 No events overnight. Remains on CPAP, T:99.9 08/24 No events overnight. On CPAP PS 10, PEEP; 5 and FIO2 35% overnight. Afebrile. 08/25 No events overnight. Afebrile. On CPAP overnight with PS 8, PEEP: 5 and FIO2 35%, afebrile. Tolerating TF. 08/26 Tolerating Tpiece. 08/27 Tolerated Tpiece yesterday and overnight. However this evening desaturated and was placed back on CPAP. Dr. Mistry attempted to update daughter Radha Foreman and discuss his overall poor prognosis for recovery, but call got disconnected midway through call and could not reach her back 08/28 On PSV 10/5 40% today. Afebrile. 08/29 On CPAP overnight. Now on Tpiece 70% per pulmonology. Increased yellow secretions noted. Temp max 99.1 Nursing staff expresses concern that he appears uncomfortable during all nursing care. Called elsa Garcia to update , no answer, left message to call me. 08/30: On CPAP overnight. Currently on T piece at 45%. Currently afebrile. Positive BM. Tolerating tube feeding. 08/31: On CPAP overnight. Will return T piece at 35%. MAXIMUM TEMPERATURE 99.6. 5 bowel movements. Tolerating tube feeds. Neurological examination unchanged. 09/01: Tmax 99.2. Currently afebrile. Currently in TPs at 35%. 7 bowel movement overnight. Tolerating tube feeding. Subjective: 09/19: Ciarra called secondary to aspiration on Gen. medical floor. Transfer to ICU and placed on mechanical ventilation. ABG shows CO2 retention. Etc. revealed no acute cardiac 20 finds however copious message to feed suctioned from trach tube 09/20 No events overnight. Afebrile. On ACV with RR 16, TV 500, PEEP: 5 and FIO2 40%. 09/21 No events overnight. Afebrile. 09/22 No events overnight. Tolerated CPAP all day yesterday with PS 12, PEEP:5 and FIO2 35%. Afebrile. 09/23 No events overnight. On no sedation Tolerated CPAP yesterday. Had T:100.3 last night. 09/24 Patient tolerated TP's x 6 hrs yesterday On CPAP 12/5 with 35% FIO2 overnight. Afebrile. 09/25 No events overnight. On CPAP overnight and TP's during day. Tolerating tube feeds. 10/11 Reconsult: Ciarra was called as patient was found hypotensive with SBP 80' s and tube feeds coming from trach site. Patient is receiving 1L bolus NS and STAT CXR showed mild pulm edema. On arrival to ICU patient was connected to ventilator ( On ACV RR 16, TV 500, PEEP:5 and FIO2 40% with sats 95%. Current BP 125/91 , P:81 10/12 Patient remains on ventilator overnight. Borderline low BP with MAP ranges 67-72. Afebrile. On no sedation. 10/13 Patient is on ventilator via trach, afebrile, WBC trending down. Patient was hypotensive yesterday responded to fluid resuscitation not on any pressors. 10/14: No acute events overnight. WBC count has normalized. Will start SBT as tolerated. CXR in am Objective - Vital Signs Date Time Temp Pulse Resp B/P Pulse Ox O2 Delivery O2 Flow Rate FiO2 10/15/15 08:42 100 40 10/15/15 08:00 79 10/15/15 08:00 98.0 18 126/84 10/15/15 07:00 Mechanical Ventilator 6.00 Intake and Output 10/14/15 10/14/15 10/15/15 08:00 16:00 00:00 Intake Total 872 ml 1047 ml 1210 ml Output Total 800 ml 1500 ml 1400 ml Balance 72 ml -453 ml -190 ml Result Diagram: 10/15/15 0644 10/15/15 0644 Other Results Laboratory Tests Test 10/14/15 05:26 White Blood Count 5.1 TH/MM3 Red Blood Count 3.29 MIL/MM3 Hemoglobin 8.7 GM/DL Hematocrit 26.9 % Mean Corpuscular Volume 82.0 FL Mean Corpuscular Hemoglobin 26.6 PG Mean Corpuscular Hemoglobin 32.5 % Concent Red Cell Distribution Width 17.8 % Platelet Count 120 TH/MM3 Mean Platelet Volume 8.8 FL Neutrophils (%) (Auto) 73.7 % Lymphocytes (%) (Auto) 10.9 % Monocytes (%) (Auto) 6.6 % Eosinophils (%) (Auto) 2.4 % Basophils (%) (Auto) 6.4 % Neutrophils # (Auto) 3.8 TH/MM3 Lymphocytes # (Auto) 0.6 TH/MM3 Monocytes # (Auto) 0.3 TH/MM3 Eosinophils # (Auto) 0.1 TH/MM3 Basophils # (Auto) 0.3 TH/MM3 CBC Comment DIFF FINAL Differential Comment Sodium Level 140 MEQ/L Potassium Level 3.4 MEQ/L Chloride Level 104 MEQ/L Carbon Dioxide Level 29.7 MEQ/L Anion Gap 6 MEQ/L Blood Urea Nitrogen 8 MG/DL Creatinine 0.21 MG/DL Estimat Glomerular Filtration 475 ML/MIN Rate Random Glucose 124 MG/DL Calcium Level 8.1 MG/DL Phosphorus Level 2.0 MG/DL Magnesium Level 1.6 MG/DL Random Vancomycin Level 3.9 COMMENT Imaging Last Impressions Chest X-Ray 10/13/15 0600 Signed Impressions: Service Date/Time: Tuesday, October 13, 2015 03:51 - CONCLUSION: Mild left base consolidation superimposed on chronic interstitial lung disease, not significantly changed. Erlin Escobar MD Upper Extremity Ultrasound 10/13/15 0000 Signed Impressions: Service Date/Time: Tuesday, October 13, 2015 09:51 - CONCLUSION: 1. No evidence of deep venous thrombosis. John Anderson MD Abdomen X-Ray 10/12/15 0000 Signed Impressions: Service Date/Time: Monday, October 12, 2015 17:37 - CONCLUSION: 1. Gastrostomy tube in place 2. Unremarkable bowel gas pattern. Salazar Thurman MD Renal Ultrasound 10/07/15 0000 Signed Impressions: Service Date/Time: Wednesday, October 07, 2015 18:29 - CONCLUSION: 1. No acute findings. 3.6 cm left renal cyst. Putnam catheter in bladder. Amaury Ellsworth MD Tunnelled Chest Tube Removal 08/05/15 1100 Signed Impressions: Service Date/Time: Wednesday, August 05, 2015 11:00 - CONCLUSION: Uncomplicated chest tube removal. Blaien Jackson MD Chest Tube Change 07/31/15 0000 Signed Impressions: Service Date/Time: Friday, July 31, 2015 14:34 - CONCLUSION: Uncomplicated reposition of previously placed chest tube as above. Blaine Jackson MD Chest Tube Insertion 07/30/15 0000 Signed Impressions: Service Date/Time: July 14:50 - CONCLUSION: Uncomplicated chest tube placement as above. Blaine Jackson MD Catheter Change 07/27/15 0000 Signed Impressions: Service Date/Time: Monday, July 27, 2015 14:43 - CONCLUSION: Uncomplicated gastrostomy tube exchange as above. Blaine Jackson MD Chest CT 07/11/15 0000 Signed Impressions: Service Date/Time: Saturday, July 11, 2015 09:49 - CONCLUSION: Scattered patchy densities significantly improved from previous study. Tiny anterior right basilar pneumothorax. Right-sided chest tube in good position. Néstor Matamoros MD Head CT 06/18/151902 Signed Impressions: Service Date/Time: June 19:31 - CONCLUSION: Diffuse atrophy unchanged. No acute intracranial findings. Kush Briscoe MD Abdomen/Pelvis CT 06/18/151902 Signed Impressions: Service Date/Time: June 19:36 - CONCLUSION: 1. Chronic nonspecific urinary bladder wall thickening. Bladder collapsed with Putnam catheter in place. 2. Chronic bilateral mid to lower lung zone groundglass opacity. 3. Nonobstructing left renal calculus. 4. Distended rectum. Kush Briscoe MD Objective Remarks GENERAL: 54-year-old male, cachectic, debilitated with contractures on ventilator via trach. HEENT: NC/AT. PERRL. MMM. OP without erythema or exudates NECK: No JVD. Supple. 8.0 Distal XLT trach in place CARDIAC: RRR. S1/S2. No S4. No murmurs, clicks gallops or rubs. LUNGS: B/L eqal air entry with few coarse BS ABDOMEN: S/NT/ND. Positive BS EXTREMITIES: 1+ dependent pedal edema. Contractures and deformities of fingers. Stage III coccyx/sacral decubitus ulcer NEUROLOGY: Patient with significant contractures of the bilat lower extremity, upper extremities. Eyes open spontaneously. Temporal and facial muscle wasting , muscular atrophy all extremities. Procedures 07/26- PEG replacement 07/29- right pigtail catheter placement for new pneumothorax Urinary Catheter: Yes Assessment to: Continue Date of Insertion: Oct 05, 2015 A/P Assessment and Plan Neuro/Psych: Parkinson's disease Cognitive disorder not otherwise specified Chronic encephalopathy Dementia Depression On no sedation, monitor neuro status. CT head 06/18/15: - diffuse atrophy unchanged. No acute intracranial findings Continue Sinemet 25/100 q8 via PEG, Seroquel 50 mg twice a day, olanzapine 5 mg a night, Klonopin 2 mg every 8 hours, Paxil 20 daily Continue Lortab when necessary pain and fentanyl patch 50 g every 3 days for pain management. Fentanyl bolus prn breakthrough pain or if needed for turning/ nursing care/etc. Resp: Acute on chronic respiratory failure Chronic trach #8 Shiley distal XLT Pneumonia, aspiration (ESBL Klebsiella and Pseudomonas pneumonia) Right pneumothorax status post pigtail catheter 2 (resolved) Continue with vent support keep sat >90%. Ventilator bundle, pulm toilet, trach care, Pulmonary Dr. Restrepo following. On Prednisone 60mg daily Exchanged to 8 Distal XLT on 08/15 to facilitate suctioning, trach care. Bronchodilators ( DuoNeb) CXR 10/12- Mild left base consolidation superimposed on chronic interstitial lung disease, not significantly changed. Cardiac History of orthostasis History of CAD History dyslipidemia History of hypertension Continue Midodrine 5 mg BID Monitor HR and BP keep MAP>65mmHg. Lactic acid 2.4 10/11 GI: Chronic moderate protein energy malnutrition Dysphagia Status post PEG Internal hemorrhoids Gastroesophageal reflux disease - 10/11 KUB abdomen: PEG tube in place. Unremarkable bowel gas pattern. -On TF Jevity 1.5 advance to goal rate 60ml/hr, on Reglan 5mg Q8 PRN for high residuals. - On Prevacid 30 mg per PEG tube daily for GERD FEN/Renal: Nonobstructing left renal calculus - Monitor renal function, I/O's. electrolytes replacement per protocol. Will need K, Phos replacement today -On D5NS@100ml/hr, ID: Sepsis Aspiration pneumonia Cele UTI 10/12 BC: NGTD 10/11 BC: NGTD 10/11 Urine cx: Yeast 10/11 Sputum: ESBL Klebsiella and Pseudomonas pneumonia 10/10 Urine: C. Tropicalis 09/21 Urine cx: Pseudomonas ? colonized 09/19 Sputum cx: Pseudomonas, Kleb pneumonia ESBL pos Candiduria (cele tropicalis urine cx 08/17) ESBL positive Klebsiella/Pseudomonas pneumonia Stenotrophomonas in sputum 08/17 MRSA colonization sepsis UTI Klebsiella ESBL positive (has been treated) Continue with abx ( Merrem,) s/p Vanco 1gram x1 10/12, follow up on cxs and monitor for signs of infections ( Fever, WBC) ID service is following- Dr. Enoc Moss. Discontinued Micafungin 10/13. No further need for Vanc Endo: On SSI ( medium) with accuchecks Q6. Heme Normocytic Anemia - Monitor CBC MSK Bilateral lower extremity Contractures Stage III sacral decubitus present on admission - Wound care and PT on case Prophylaxis - GI - Prevacid - DVT - SCDs/ Lovenox. ACCESS: PIVs CCT 30 mins Hilario Kern MD Oct 15, 2015 10:10
[2015-10-15] MEDS: FLUCONAZOLE 400 MG PREMIX BAG 200 ML IV SCH (12:29)
[2015-10-15] MEDS: OLANZapine 5 MG TAB GT SCH (21:33)
[2015-10-15] MEDS: ENOXAPARIN SODIUM 40 MG/0.4 ML SYRINGE SQ SCH (21:33)
[2015-10-16] VITALS (19 sets, daily range): BP systolic 118–181; BP diastolic 78–99; PULSE 71–95; RESP 21–28; TEMP 98.2–98.8; O2SAT 97–100
[2015-10-16] MEDS: INSULIN NovoLIN REGULAR SUPPLEMENTAL SCALE SQ SCH ×5 (01:06→23:51)
[2015-10-16] MEDS: DEXT 5%-NACL 0.9% 1000 ML INJ 1,000 ML IV SCH ×3 (02:58→23:15)
[2015-10-16] MEDS: RESP: ALBUTEROL 2.5 MG/IPRATROPIUM 0.5 MG NEB (SCH) NEB ×4 (04:26→19:37)
[2015-10-16] MEDS: clonazePAM 1 MG TAB PO SCH ×3 (05:24→23:50)
[2015-10-16] MEDS: CARBIDOPA/LEVODOPA 25 MG/100 MG TAB GT SCH ×3 (05:24→23:50)
[2015-10-16] MEDS: MEROPENEM INJ 1,000 MG in SODIUM CHLORIDE 0.9% INJ 100 ML IV SCH ×3 (05:24→23:50)
--- NOTE | 2015-10-16 06:43 | RADRPT ---
EXAM DATE/TIME: 10/16/2015 04:25 [facility] COMPARISON: CHEST SINGLE AP, October 13, 2015, 3:51. INDICATIONS : Evaluate for respiratory disease. MEDICAL HISTORY : Hypertension. Cardiovascular disease. Diabetic. SURGICAL HISTORY : Tracheostomy. ENCOUNTER: Subsequent ACUITY: 2 weeks PAIN SCORE: Non-responsive. LOCATION: chest FINDINGS: There is subsegmental mostly basilar airspace disease. No significant effusion. No pneumothorax. The tracheostomy is in satisfactory position. CONCLUSION: 1. Subsegmental basilar opacity. No effusion or pneumothorax. The tracheostomy is in satisfactory pos ition. Minimal scoliosis. Amaury Ellsworth MD on October 16, 2015 at 6:37 Board Certified Radiologist. This report was verified electronically.
[2015-10-16] MEDS: LANSOPRAZOLE SOLUTAB 30 MG TAB NG SCH (07:49)
[2015-10-16] MEDS: ARTIFICIAL TEARS OPTH SOLN 15 ML BTL EACH EYE SCH ×3 (07:49→18:11)
[2015-10-16] MEDS: predniSONE 20 MG TAB PO SCH (07:49)
[2015-10-16] MEDS: QUEtiapine FUMARATE 25 MG TAB G-TUBE SCH ×2 (07:49→23:50)
[2015-10-16] MEDS: MIDODRINE 5 MG TAB G-TUBE SCH ×2 (07:49→23:50)
[2015-10-16] MEDS: PARoxetine HCL 20 MG TAB G-TUBE SCH (07:49)
[2015-10-16] MEDS: LACTOBACILLUS ACIDOPHILUS TAB PO SCH ×3 (07:49→18:11)
[2015-10-16] MEDS: GABAPENTIN 300 MG CAP G-TUBE SCH ×2 (07:49→23:50)
[2015-10-16] MEDS: CHLORHEXIDINE 0.12% (ORAL KIT) 15 ML CUP MT SCH ×2 (07:50→23:52)
[2015-10-16] MEDS: COLLAGENASE OINT 30 GM TUBE TOP SCH (07:50)
[2015-10-16] MEDS: SODIUM CHLORIDE 0.9% FLUSH 5 ML FLUSH IVF SCH ×2 (07:50→23:51)
[2015-10-16] MEDS: FLUCONAZOLE 400 MG PREMIX BAG 200 ML IV SCH (12:53)
--- NOTE | 2015-10-16 13:14 | HHI.IDPN ---
Subjective Subjective Remarks Chart reviewed. Patient known to me. ID was reconsulted few days back from abnormal UA (not treated). Now reconsulted for overnight events that are new indicative of new infectious process. Was on [facility] and transferred as a [facility] due to being found on the floor, hypotensive and obvious aspiration of tube feed contents s/o aspiration. Overnight events reviewed. Temps ok. Bp better. Not on pressors. Urine output better. resp secretions small, mehta to clear at times. No rash No diarrhea Antibiotics Meropenem IV Micafungin IV Vanco IV x 1 dose. Lines Peripheral IV with no e/o infection Past Medical History reviewed Allergies: Coded Allergies: *MDRO Multi-Drug Resistant Organism (Verified Adverse Reaction, Unknown, ) ESBL E. coli (urine) - 02/19/2015; ESBL K. 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 Vital Signs Date Time Temp Pulse Resp B/P Pulse Ox O2 Delivery O2 Flow Rate FiO2 10/16/15 12:44 97 35 10/16/15 09:00 35 10/16/15 08:49 35 10/16/15 08:49 100 35 10/16/15 08:00 35 10/16/15 08:00 92 10/16/15 08:00 98.5 92 23 131/89 98 10/16/15 06:00 89 10/16/15 04:24 100 35 10/16/15 04:00 72 10/16/15 04:00 35 10/16/15 04:00 98.5 72 28 181/99 100 10/16/15 02:00 84 10/16/15 01:28 100 35 10/16/15 00:00 98.2 95 21 118/78 97 10/16/15 00:00 95 10/16/15 00:00 35 10/15/15 22:29 100 35 10/15/15 22:00 82 10/15/15 20:00 76 10/15/15 20:00 35 10/15/15 20:00 97.7 76 20 109/69 99 10/15/15 19:45 97 35 10/15/15 19:00 100 Mechanical Ventilator 35 10/15/15 18:45 100 35 10/15/15 18:45 35 10/15/15 18:00 85 10/15/15 16:49 97 35 10/15/15 16:00 85 10/15/15 16:00 97.8 85 21 121/81 96 10/15/15 16:00 35 10/15/15 14:00 73 10/15/15 10/15/15 10/16/15 15:00 23:00 07:00 Intake Total 1616 ml 1229 ml 1206 ml Output Total 2400 ml 1275 ml 850 ml Balance -784 ml -46 ml 356 ml IV Total 1158 ml 837 ml 795 ml Tube Feeding 458 ml 272 ml 311 ml Other 120 ml 100 ml Output Urine Total 2400 ml 1275 ml 850 ml # Bowel Movements 1 1 . Laboratory Tests Test 10/14/15 10/15/15 17:17 06:44 Hemoglobin 9.0 GM/DL 8.8 GM/DL Hematocrit 28.2 % 27.4 % White Blood Count 6.8 TH/MM3 Red Blood Count 3.32 MIL/MM3 Mean Corpuscular Volume 82.6 FL Mean Corpuscular Hemoglobin 26.5 PG Mean Corpuscular Hemoglobin 32.0 % Concent Red Cell Distribution Width 18.0 % Platelet Count 145 TH/MM3 Mean Platelet Volume 9.4 FL Neutrophils (%) (Auto) 76.5 % Lymphocytes (%) (Auto) 16.8 % Monocytes (%) (Auto) 6.0 % Eosinophils (%) (Auto) 0.6 % Basophils (%) (Auto) 0.1 % Neutrophils # (Auto) 5.2 TH/MM3 Lymphocytes # (Auto) 1.1 TH/MM3 Monocytes # (Auto) 0.4 TH/MM3 Eosinophils # (Auto) 0.0 TH/MM3 Basophils # (Auto) 0.0 TH/MM3 CBC Comment DIFF FINAL Differential Comment Laboratory Tests Test 10/14/15 10/15/15 10/16/15 17:17 06:44 10:11 Phosphorus Level 2.1 MG/DL 2.0 MG/DL 1.2 MG/DL Sodium Level 140 MEQ/L Potassium Level 3.7 MEQ/L Chloride Level 102 MEQ/L Carbon Dioxide Level 30.2 MEQ/L Anion Gap 8 MEQ/L Blood Urea Nitrogen 6 MG/DL Creatinine 0.19 MG/DL Estimat Glomerular Filtration 533 ML/MIN Rate Random Glucose 119 MG/DL Calcium Level 8.4 MG/DL Magnesium Level 1.6 MG/DL Microbiology Date/Time Procedure Status Source Growth 10/13/15 14:27 Aerobic Blood Culture - Preliminary Resulted Blood Other NO GROWTH IN 3 DAYS 10/13/15 14:27 Anaerobic Blood Culture - Preliminary Resulted Blood Other NO GROWTH IN 3 DAYS 10/13/15 14:32 Aerobic Blood Culture - Preliminary Resulted Blood Other NO GROWTH IN 3 DAYS 10/13/15 14:32 Anaerobic Blood Culture - Preliminary Resulted Blood Other NO GROWTH IN 3 DAYS Imaging Chest X-Ray 10/05/15 0000 Signed Impressions: Service Date/Time: Monday, October 05, 2015 19:56 - CONCLUSION: Hyperinflation with no acute cardiopulmonary process. Scott Goode MD Chest X-Ray 09/25/15 0000 Signed Impressions: Service Date/Time: Friday, September 25, 2015 09:28 - CONCLUSION: No acute disease. Tai Taylor Jr., MD Abdomen X-Ray 09/21/15 0000 Signed Impressions: Service Date/Time: Monday, September 21, 2015 11:31 - CONCLUSION: Normal bowel gas pattern. Tai Taylor Jr., MD Tunnelled Chest Tube Removal 08/05/15 1100 Signed Impressions: Service Date/Time: Wednesday, August 05, 2015 11:00 - CONCLUSION: Uncomplicated chest tube removal. Blaine Jackson MD Chest Tube Change 07/31/15 0000 Signed Impressions: Service Date/Time: Friday, July 31, 2015 14:34 - CONCLUSION: Uncomplicated reposition of previously placed chest tube as above. Blaine Jackson MD Chest Tube Insertion 07/30/15 0000 Signed Impressions: Service Date/Time: July 14:50 - CONCLUSION: Uncomplicated chest tube placement as above. Blaine Jackson MD Catheter Change 07/27/15 0000 Signed Impressions: Service Date/Time: Monday, July 27, 2015 14:43 - CONCLUSION: Uncomplicated gastrostomy tube exchange as above. Blaine Jackson MD Chest CT 07/11/15 0000 Signed Impressions: Service Date/Time: Saturday, July 11, 2015 09:49 - CONCLUSION: Scattered patchy densities significantly improved from previous study. Tiny anterior right basilar pneumothorax. Right-sided chest tube in good position. Néstor Matamoros MD Head CT 06/[id number]/[id number] Signed Impressions: Service Date/Time: , June 18, 2015 19:31 - CONCLUSION: Diffuse atrophy unchanged. No acute intracranial findings. Kush Briscoe MD Abdomen/Pelvis CT 06/18/[id number] Signed Impressions: Service Date/Time: , June 18, 2015 19:36 - CONCLUSION: 1. Chronic nonspecific urinary bladder wall thickening. Bladder collapsed with Putnam catheter in place. 2. Chronic bilateral mid to lower lung zone groundglass opacity. 3. Nonobstructing left renal calculus. 4. Distended rectum. Kush Briscoe MD Physical Exam GENERAL: eyes closed, No interaction SKIN: No generalized rash. Cool and dry. HEENT: [place] conjunctivae, no icterus, moist mucosa NECK: Trach site looks ok. RESPIRATORY: decreased at the bases. GASTROINTESTINAL: Abdomen soft, non-tender, not distended. No hepatosplenomegaly PEG tube site clean, no evidence of infection. MUSCULOSKELETAL: No cyanosis No pedal edema. Contracted all 4 extremities. NEUROLOGICAL: Keeping his eyes closed, contractures of the extremities, no interaction. Peripheral IV line sites with no evidence of infection. ; Putnam in place, urine looks clear Assessment & Plan Remarks Aspiration PNA in Health care setting. History of PSAE ESBL cath associated UTI. S/P Rx Leukocytosis, resolved Chronic respiratory failure on trach PSAE and ESBL Kleb in sputum in recent past. Chronic encephalopathy with underlying diagnosis of advanced dementia as well as advanced Parkinson's disease. Status post trach Status post gastrostomy tube with no evidence of infection. Stage II sacral decubitus ulcer present on admission. Recommendations Continue Meropenem IV (ASP documentation: MDRO ESBL and PSAE in sputum) Continue Diflucan IV If diarrhea check Cdiff. Likely aspiration PNA in health care setting. Will adjust antibiotics based on cultures. Code: DNR but aggressive medical management. Case dw Trina Mazariegos MD Oct 16, 2015 13:14
--- NOTE | 2015-10-16 13:19 | HHI.CCPN ---
Subjective Remarks/Hospital Course 06/17: Pt is a 54 yr man with multiple medical problems including Parkinson's disease, advanced dementia, hyponatremia, anxiety, pneumonia, GERD, cognitive disorder, and multidrug resistant UTI- ESBL02/19/15 , who resides in a [facility]. Pt by report was found by staff in [facility] to be less alert and having respiratory difficultly and fevers. Pt was brought to ED adn placed on ventilator. His workup was inclusive of labs, chest xray and ct head and abd/pelvis. WBC 16.4, +UTI, lactic acid 4, troponin ,0.02, BUN/ cre 18/ 0.76. CT head 06/18/15: diffuse atrophy unchanged. No acute intracranial findings ct abd/ pelvis with IV contrast: 06/18/15 Conclusion: 1. Chronic nonspecific urinary bladder wall thickening. Bladder collapsed with Putnam catheter in place. 2.Chronic bilateral mid to lower zone groundglass opacity. 3. Nonobstructing left renal calculus. 4. Distended rectum Pt admitted and fluid and abx ordered. 06/18: Drowsy, easily arousable. On mechanical ventilation via tracheostomy. Tachypneic. Resting tremor noted. 06/19: Drowsy, arousable. On mechanical ventilation via tracheostomy. 06/20: Drowsy, arousable. Remains on mechanical ventilation via tracheostomy. We'll repeat blood cultures, UA and urine cultures. Fluconazole IV added in view of yeast in urine. 07/06: Reconsulted as patient return to the ventilator on a right ventricular due to tachypnea. Low-grade temperatures. Tolerating tube feeding. Extremity encephalopathic demented patient with difficult neurological examination. 07/07: Status post chest tube placement by IR for right pneumothorax 07/06. Afebrile. Tolerating tube feeds. Positive BM. Currently tachypneic on the ventilator. Does not appear to be any acute distress. 07/08: Afebrile. Tolerating tube feeding. He is comfortable currently on CPAP trials 11/10. Positive BM. 07/09: Afebrile. Tolerating tube feeding. Appears comfortable on T bar. Positive BM. 07/10: Afebrile. Eyes are open. Remained on T piece overnight. Tolerating tube feeding. 07/11: MAXIMUM TEMPERATURE 100. Currently 98.6. Eyes are open. On ACV overnight secondary to "tachypnea and sweating". Switching back to PSV trials today. Goal is T piece during daytime, CPAP at night. 07/12: No acute events overnight. On PSV 15/5 -attempt TP up to 6 hours today. No pneumothorax on chest x-ray 07/13: Placed back on full ventilator support for tachypnea. Otherwise clinically unchanged. No fever today 07/14: Patient was on T piece yesterday evening, placed back on PSV overnight, patient mechanical ventilation this morning. Patient appears to be struggling with mechanical ventilation. Patient placed back on PSV with improvement 07/15: Patient placed back on mechanical ventilation last evening due to respiratory rate. It was indicated patient was tachypnea can the 40s. Patient on mechanical ventilation this time with respiration rate mid 20s. Chest tube still in place without any output, chest x-ray still indicating resolution of pneumothorax. 07/16: Patient seen and examined today. Patient placed back on mechanical ventilation overnight due to respiratory rate. Even on mechanical ventilation patient has respiration rate in the 30s. Patient afebrile, blood pressure stable. Continue vent weaning 07/17: Patient seen and examined. Currently afebrile. Currently on CPAP 15/5 @ 40%. Patient is awake with open mouth resting in bed in no apparent acute distress. Tolerating tube feeding. 2 bowel movements. 07/18: No neurological changes. Afebrile. 2 bowel moments. Tolerating tube feeding. We'll attempt TP trials today. On CPAP since 07/15 07/19 No events overnight. On CPAP with PS: 10, PEEP: 5 and FIO2 35%. Afebrile. On no sedation. 07/20 No events overnight. Tolerating CPAP. Afebrile. 07/21: Remains on CPAP. Attempt T piece trial today. Afebrile. One bowel movement. Tolerating tube feeding. 07/22: Afebrile. Positive BM. Tolerating tube feeding. Noted switched tracheostomy to #6 Shiley cuffed fenestrated. Neurologically unchanged 07/23: Afebrile. Positive BM. Tolerating tube feeding. Questionable leak in exchange trach. Place back on a rate/ACV overnight. Insufflated seems to be doing better at the present time. Will check chest x-ray. Possible he might need #6 XLT versus replacement of chronic #8 Shiley. 07/24: Tolerating TP today, RR in low 30s patient appears comfortable. No acute events overnight 07/25: Remains off the ventilator more than 36 hours now. Intermittently tachypneic probably breathing. Chest x-ray was clear yesterday. No acute events reported overnight. PEG not functioning per RN 08/02: Patient was transferred back to critical care service due to continuing ventilator management, tachypnea. Patient clinical status with no significant change. Patient with low-grade fever 100.2, 08/03: Patient seen and examined today. No significant change in clinical status. Patient still with chronic tachypnea. Patient afebrile now. 08/04: Patient seen and examined today. No change in clinical status. Patient still continues to have chronic tachypnea. Patient afebrile. Continue vent weaning 08/05: Patient seen and examined today. Patient had chest tube removed yesterday , chest x-ray shows redevelopment of pneumothorax. Chest tube replaced. Otherwise, patient still on ventilator with tachypnea. Afebrile 08/06: Patient seen and examined today. Patient went to have chest tube placed, repeat chest x-ray did not indicate any pneumothorax. No overnight events. We' ll need to pursue LTAC placement 08/07 No events overnight. On ventilator via trach. Afebrile. 08/08 Patient tolerated CPAP x4 hrs yesterday. Afebrile. On no sedation. 08/09 No events overnight. Tolerated CPAP x 12 hrs yesterday. Afebrile. 08/10 Patient tolerated TP's x 12 hrs yesterday back on ACV overnight. 08/11 No events overnight, currently on TP's with 40% FIO2. Afebrile. 08/12 On CPAP 10/5. Tolerated Tpiece 3 hours earlier today. Afebrile. 08/13 On CPAP 10/5. Not tolerating CPAP as well over last few days and RT notes challenge with suctioning respiratory secretions adequately. Discussing with healthcare proxy regarding exchange trach to 8.0. 08/14 Nursing and RT staff having continued difficulty suctioning respiratory secretions via 6.0 tracheostomy. KAREN Garcia did not consent to stoma dilation and trach upsize yesterday but said she would call back and let me know but no return call. Contacted again today and left a message. Afebrile. On CPAP 10/5. Brow furrowing on exam, appears to be in pain but pain not localizable. Tolerating tube feeds, had BM yesterday 08/15 Not tolerating CPAP today. Contacted healthcare surrogate again and discussed need for trach change. She consented and trach was dilated and up- sized to 8.0 Distal XLT to facilitate pulmonary toilet and to address volume leak. 08/16 No events overnight. Remains on ventilator via trach. Afebrile. Tolerating TF. 08/17 No events overnight. Afebrile. 08/18 Patient tolerated CPAP x 4 hrs yesterday. Afebrile.On ventilator via trach. 08/19 On CPAP 25/06. Temp max 99.3 08/20 Stenotrophomonas in sputum, started on Levaquin per ID. Temp max 99.8. On CPAP 20/09. Tube feeds were held because PEG was clogged but now PEG is functioning. 08/21 No events overnight. Afebrile. Remains on ventilator via trach. Has been tolerating CPAP trials for last 2 days. 08/22 No events overnight. Afebrile , Has been on CPAP all night with PS: 20, PEEP; 5 and FIO2 35%. 08/23 No events overnight. Remains on CPAP, T:99.9 08/24 No events overnight. On CPAP PS 10, PEEP; 5 and FIO2 35% overnight. Afebrile. 08/25 No events overnight. Afebrile. On CPAP overnight with PS 8, PEEP: 5 and FIO2 35%, afebrile. Tolerating TF. 08/26 Tolerating Tpiece. 08/27 Tolerated Tpiece yesterday and overnight. However this evening desaturated and was placed back on CPAP. Dr. Mistry attempted to update daughter Radha Foreman and discuss his overall poor prognosis for recovery, but call got disconnected midway through call and could not reach her back 08/28 On PSV 10/5 40% today. Afebrile. 08/29 On CPAP overnight. Now on Tpiece 70% per pulmonology. Increased yellow secretions noted. Temp max 99.1 Nursing staff expresses concern that he appears uncomfortable during all nursing care. Called elsa Garcia to update , no answer, left message to call me. 08/30: On CPAP overnight. Currently on T piece at 45%. Currently afebrile. Positive BM. Tolerating tube feeding. 08/31: On CPAP overnight. Will return T piece at 35%. MAXIMUM TEMPERATURE 99.6. 5 bowel movements. Tolerating tube feeds. Neurological examination unchanged. 09/01: Tmax 99.2. Currently afebrile. Currently in TPs at 35%. 7 bowel movement overnight. Tolerating tube feeding. Subjective: 09/19: Ciarra called secondary to aspiration on Gen. medical floor. Transfer to ICU and placed on mechanical ventilation. ABG shows CO2 retention. Etc. revealed no acute cardiac 20 finds however copious message to feed suctioned from trach tube 09/20 No events overnight. Afebrile. On ACV with RR 16, TV 500, PEEP: 5 and FIO2 40%. 09/21 No events overnight. Afebrile. 09/22 No events overnight. Tolerated CPAP all day yesterday with PS 12, PEEP:5 and FIO2 35%. Afebrile. 09/23 No events overnight. On no sedation Tolerated CPAP yesterday. Had T:100.3 last night. 09/24 Patient tolerated TP's x 6 hrs yesterday On CPAP 12/5 with 35% FIO2 overnight. Afebrile. 09/25 No events overnight. On CPAP overnight and TP's during day. Tolerating tube feeds. 10/11 Reconsult: Ciarra was called as patient was found hypotensive with SBP 80' s and tube feeds coming from trach site. Patient is receiving 1L bolus NS and STAT CXR showed mild pulm edema. On arrival to ICU patient was connected to ventilator ( On ACV RR 16, TV 500, PEEP:5 and FIO2 40% with sats 95%. Current BP 125/91 , P:81 10/12 Patient remains on ventilator overnight. Borderline low BP with MAP ranges 67-72. Afebrile. On no sedation. 10/13 Patient is on ventilator via trach, afebrile, WBC trending down. Patient was hypotensive yesterday responded to fluid resuscitation not on any pressors. 10/14: No acute events overnight. WBC count has normalized. Will start SBT as tolerated. CXR in am 10/15 No acute events overnight. Phosphorus low needs replacement. Otherwise neuro exam remains unchanged. remains on CPAP Objective - Vital Signs Date Time Temp Pulse Resp B/P Pulse Ox O2 Delivery O2 Flow Rate FiO2 10/16/15 12:44 97 35 10/16/15 08:00 92 10/16/15 08:00 98.5 23 131/89 10/15/15 19:00 Mechanical Ventilator 10/15/15 07:00 6.00 Intake and Output 10/15/15 10/15/15 10/16/15 08:00 16:00 00:00 Intake Total 1198 ml 1616 ml 1229 ml Output Total 1300 ml 2400 ml 1275 ml Balance -102 ml -784 ml -46 ml Result Diagram: 10/15/15 0644 10/15/15 0644 Other Results Laboratory Tests Test 10/14/15 05:26 White Blood Count 5.1 TH/MM3 Red Blood Count 3.29 MIL/MM3 Hemoglobin 8.7 GM/DL Hematocrit 26.9 % Mean Corpuscular Volume 82.0 FL Mean Corpuscular Hemoglobin 26.6 PG Mean Corpuscular Hemoglobin 32.5 % Concent Red Cell Distribution Width 17.8 % Platelet Count 120 TH/MM3 Mean Platelet Volume 8.8 FL Neutrophils (%) (Auto) 73.7 % Lymphocytes (%) (Auto) 10.9 % Monocytes (%) (Auto) 6.6 % Eosinophils (%) (Auto) 2.4 % Basophils (%) (Auto) 6.4 % Neutrophils # (Auto) 3.8 TH/MM3 Lymphocytes # (Auto) 0.6 TH/MM3 Monocytes # (Auto) 0.3 TH/MM3 Eosinophils # (Auto) 0.1 TH/MM3 Basophils # (Auto) 0.3 TH/MM3 CBC Comment DIFF FINAL Differential Comment Sodium Level 140 MEQ/L Potassium Level 3.4 MEQ/L Chloride Level 104 MEQ/L Carbon Dioxide Level 29.7 MEQ/L Anion Gap 6 MEQ/L Blood Urea Nitrogen 8 MG/DL Creatinine 0.21 MG/DL Estimat Glomerular Filtration 475 ML/MIN Rate Random Glucose 124 MG/DL Calcium Level 8.1 MG/DL Phosphorus Level 2.0 MG/DL Magnesium Level 1.6 MG/DL Random Vancomycin Level 3.9 COMMENT Imaging Last Impressions Chest X-Ray 10/13/15 0600 Signed Impressions: Service Date/Time: Tuesday, October 13, 2015 03:51 - CONCLUSION: Mild left base consolidation superimposed on chronic interstitial lung disease, not significantly changed. Erlin Escobar MD Upper Extremity Ultrasound 10/13/15 0000 Signed Impressions: Service Date/Time: Tuesday, October 13, 2015 09:51 - CONCLUSION: 1. No evidence of deep venous thrombosis. John Anderson MD Abdomen X-Ray 10/12/15 0000 Signed Impressions: Service Date/Time: Monday, October 12, 2015 17:37 - CONCLUSION: 1. Gastrostomy tube in place 2. Unremarkable bowel gas pattern. Salazar Thurman MD Renal Ultrasound 10/07/15 0000 Signed Impressions: Service Date/Time: Wednesday, October 07, 2015 18:29 - CONCLUSION: 1. No acute findings. 3.6 cm left renal cyst. Putnam catheter in bladder. Amaury Ellsworth MD Tunnelled Chest Tube Removal 08/05/15 1100 Signed Impressions: Service Date/Time: Wednesday, August 05, 2015 11:00 - CONCLUSION: Uncomplicated chest tube removal. Blaine Jackson MD Chest Tube Change 07/31/15 0000 Signed Impressions: Service Date/Time: Friday, July 31, 2015 14:34 - CONCLUSION: Uncomplicated reposition of previously placed chest tube as above. Blaine Jackson MD Chest Tube Insertion 07/30/15 0000 Signed Impressions: Service Date/Time: July 14:50 - CONCLUSION: Uncomplicated chest tube placement as above. Blaine Jackson MD Catheter Change 07/27/15 0000 Signed Impressions: Service Date/Time: Monday, July 27, 2015 14:43 - CONCLUSION: Uncomplicated gastrostomy tube exchange as above. Blaine Jackson MD Chest CT 07/11/15 Signed Impressions: Service Date/Time: Saturday, July 11, 2015 09:49 - CONCLUSION: Scattered patchy densities significantly improved from previous study. Tiny anterior right basilar pneumothorax. Right-sided chest tube in good position. Néstor Matamoros MD Head CT 06/18/151902 Signed Impressions: Service Date/Time: June 19:31 - CONCLUSION: Diffuse atrophy unchanged. No acute intracranial findings. Kush Briscoe MD Abdomen/Pelvis CT 06/18/151902 Signed Impressions: Service Date/Time: June 19:36 - CONCLUSION: 1. Chronic nonspecific urinary bladder wall thickening. Bladder collapsed with Putnam catheter in place. 2. Chronic bilateral mid to lower lung zone groundglass opacity. 3. Nonobstructing left renal calculus. 4. Distended rectum. Kush Briscoe MD Objective Remarks GENERAL: 54-year-old male, cachectic, debilitated with contractures on ventilator via trach. HEENT: NC/AT. PERRL. MMM. OP without erythema or exudates NECK: No JVD. Supple. 8.0 Distal XLT trach in place CARDIAC: RRR. S1/S2. No S4. No murmurs, clicks gallops or rubs. LUNGS: B/L eqal air entry with few coarse BS ABDOMEN: S/NT/ND. Positive BS EXTREMITIES: 1+ dependent pedal edema. Contractures and deformities of fingers. Stage III coccyx/sacral decubitus ulcer NEUROLOGY: Patient with significant contractures of the bilateral lower extremity, upper extremities. Eyes open spontaneously. Temporal and facial muscle wasting, muscular atrophy all extremities. Procedures 07/26- PEG replacement 07/29- right pigtail catheter placement for new pneumothorax Urinary Catheter: Yes Assessment to: Continue Date of Insertion: Oct 05, 2015 A/P Assessment and Plan Neuro/Psych: Parkinson's disease Cognitive disorder not otherwise specified Chronic encephalopathy Dementia Depression Contractures On no sedation, monitor neuro status. CT head 06/18/15: - diffuse atrophy unchanged. No acute intracranial findings Continue Sinemet 25/100 q8 via PEG, Seroquel 50 mg twice a day, olanzapine 5 mg a night, Klonopin 2 mg every 8 hours, Paxil 20 daily Continue Lortab when necessary pain and fentanyl patch 50 g every 3 days for pain management. Fentanyl bolus prn breakthrough pain or if needed for turning/ nursing care/etc. Resp: Acute on chronic respiratory failure Chronic trach #8 Shiley distal XLT Pneumonia, aspiration (ESBL Klebsiella and Pseudomonas pneumonia) Right pneumothorax status post pigtail catheter 2 (resolved) Continue with vent support keep sat >90%. Ventilator bundle, pulm toilet, trach care, daily SBT Pulmonary Dr. Restrepo following. On Prednisone 60mg daily Exchanged to 8 Distal XLT on 08/15 to facilitate suctioning, trach care. Bronchodilators ( DuoNeb) CXR 10/12- Mild left base consolidation superimposed on chronic interstitial lung disease, not significantly changed. Cardiac History of orthostasis History of CAD History dyslipidemia History of hypertension Continue Midodrine 5 mg BID Monitor HR and BP keep MAP>65mmHg. Lactic acid 2.4 10/11 GI: Chronic moderate protein energy malnutrition Dysphagia Status post PEG Internal hemorrhoids Gastroesophageal reflux disease - 10/11 KUB abdomen: PEG tube in place. Unremarkable bowel gas pattern. - On TF Jevity 1.5 advance to goal rate 60ml/hr, on Reglan 5mg Q8 PRN for high residuals. - On Prevacid 30 mg per PEG tube daily for GERD FEN/Renal: Nonobstructing left renal calculus - Monitor renal function, I/O's. electrolytes replacement per protocol. Will need K, Phos replacement today ID: Sepsis Aspiration pneumonia Cele UTI 10/12 BC: NGTD 10/11 BC: NGTD 10/11 Urine cx: Yeast 10/11 Sputum: ESBL Klebsiella and Pseudomonas pneumonia 10/10 Urine: C. Tropicalis 09/21 Urine cx: Pseudomonas ? colonized 09/19 Sputum cx: Pseudomonas, Kleb pneumonia ESBL pos Candiduria (cele tropicalis urine cx 08/17) ESBL positive Klebsiella/Pseudomonas pneumonia Stenotrophomonas in sputum 08/17 MRSA colonization sepsis UTI Klebsiella ESBL positive (has been treated) Continue with abx ( Merrem,) s/p Vanco 1gram x1 10/12, follow up on cxs and monitor for signs of infections ( Fever, WBC) ID service is following- Dr. Enoc Moss. Discontinued Micafungin 10/13. No further need for Vanc Endo: On SSI ( medium) with accuchecks Q6. Heme Normocytic Anemia - Monitor CBC MSK Bilateral lower extremity Contractures Stage III sacral decubitus present on admission - Wound care and PT on case Prophylaxis - GI - Prevacid - DVT - SCDs/ Lovenox. ACCESS: PIVs Level 3 Hilario Kern MD Oct 16, 2015 13:19
[2015-10-16] MEDS: SODIUM PHOSPHATE INJ 30 MMOL in SODIUM CHLOR 0.9% 250 ML INJ 240 ML IV PRN (17:13)
--- NOTE | 2015-10-16 18:41 | HHI.PR ---
Subjective Remarks 54 YOWM with ChRF,Trach, multiple uti No fever Gets anxious. No Fever Mod amount of trach secretions. Tolerates CPAP Brother at [facility] Objective Vital Signs Vital Signs Date Time Temp Pulse Resp B/P Pulse Ox O2 Delivery O2 Flow Rate FiO2 10/16/15 18:00 94 10/16/15 16:37 100 35 10/16/15 16:00 87 10/16/15 16:00 35 10/16/15 16:00 98.8 71 23 128/84 100 10/16/15 14:00 87 10/16/15 12:44 97 35 10/16/15 12:00 35 10/16/15 12:00 77 10/16/15 12:00 98.8 77 25 147/92 97 10/16/15 10:00 84 10/16/15 09:00 35 10/16/15 08:49 35 10/16/15 08:49 100 35 10/16/15 08:00 35 10/16/15 08:00 92 10/16/15 08:00 98.5 92 23 131/89 98 10/16/15 06:00 89 10/16/15 04:24 100 35 10/16/15 04:00 72 10/16/15 04:00 35 10/16/15 04:00 98.5 72 28 181/99 100 10/16/15 02:00 84 10/16/15 01:28 100 35 10/16/15 00:00 98.2 95 21 118/78 97 10/16/15 00:00 95 10/16/15 00:00 35 10/15/15 22:29 100 35 10/15/15 22:00 82 10/15/15 20:00 76 10/15/15 20:00 35 10/15/15 20:00 97.7 76 20 109/69 99 10/15/15 19:45 97 35 10/15/15 19:00 100 Mechanical Ventilator 35 10/15/15 18:45 100 35 10/15/15 18:45 35 I/O 10/15/15 10/15/15 10/15/15 10/16/15 10/16/15 10/16/15 07:00 15:00 23:00 07:00 15:00 23:00 Intake Total 1198 ml 1616 ml 1229 ml 1206 ml 1526 ml Output Total 1300 ml 2400 ml 1275 ml 850 ml 1750 ml Balance -102 ml -784 ml -46 ml 356 ml -224 ml IV Total 833 ml 1158 ml 837 ml 795 ml 1045 ml Tube Feeding 315 ml 458 ml 272 ml 311 ml 481 ml Other 50 ml 120 ml 100 ml Output Urine Total 1300 ml 2400 ml 1275 ml 850 ml 1750 ml # Bowel Movements 1 1 1 Result Diagram: 10/15/1564310/15/15643 Objective Remarks GENERAL: MBMN male on Vent. SKIN: Warm and dry. HEAD: Normocephalic. EYES: No scleral icterus. No injection or drainage. NECK: Supple, trachea midline. No JVD or lymphadenopathy. has trach CARDIOVASCULAR: Regular rate and rhythm without murmurs, gallops, or rubs. RESPIRATORY: Breath sounds equal bilaterally. No accessory muscle use. GASTROINTESTINAL: Abdomen soft, non-tender, nondistended. PEG tube in place MUSCULOSKELETAL: No cyanosis, or edema. BACK: Nontender without obvious deformity. No CVA tenderness. A/P Assessment and Plan VDRF S/P Trach Parkinson's diasease Dementia Aspiration PLAN: TF Cont CPAP Abx Per ID DW pt's brother at [facility] Severiano Ag MD Oct 16, 2015 18:41
--- NOTE | 2015-10-16 21:09 | HHI.HCPN ---
Reason for visit a. To assist with evaluation and management of symptoms including: pain, dyspnea; secretions. b. To assist medical decision maker(s) with: better understanding of current medical conditions; weighing benefits/burdens of medical treatment options; making medical treatment decisions. . (ALOK JONES) Subjective/Interval History Patient seen and examined in ICU. No family at bedside .Also present NANCY Weller student. Patient remains unresponsive. On CPAP during my visit. BP stable off pressors. Phosphorus 1.2. 10/12/15 - Sputum Klebsiella pneumoniae, pseudomonas aeruginosa, Klebsiella pneumoniae ESBL positive; urine positive cele tropicalis; blood cultures no growth. Nursing pain level scores are "0." No recent prn opiates given. From Dr. Pickard's initial palliative care consultation of 07/15/15... 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 The patient has had multiple hospitalizations which included stays in the intensive care unit for various infections. He had a urinary tract infection with multidrug resistant ESBL on 02/19/15. He was last MRSA positive on . snf notes from the facility indicate that his current baseline is: * Bedbound status * Unable to communicate * NPO -- on tube feedings at 85 cc /hr * Dependent for all ADLs In the emergency Department, initial vital signs were as follows > temperature 100.9; pulse 98; respiratory rate 38; blood pressure 104/61; pulse oximetry 99% on room air via trach collar. Initial physical examination the emergency department revealed the following > patient was frail and chronically ill-appearing. Skin showed no obvious wounds. Head, eyes, ENT, neck, cardiovascular, respiratory, gastrointestinal exams were unremarkable. Neurologically, the patient was unable to answer questions or respond or follow commands. Initial diagnostic testing revealed the following: * CBC showed WBC 16.4; hemoglobin 11.3; platelet count 176 * Coagulation profile showed PT 11.4; INR 1.1; PTT 29.4 * Chemistry profile showed sodium 141; potassium 4.5; chloride 105; CO2 27.4; anion gap 9; BUN 21; creatinine 0.85; estimated GFR 95; glucose 116; calcium 9.6 * Liver function tests showed total bilirubin 0.6; AST 23; ALT 38; alkaline phosphatase 59; total protein 7.5; albumen 3.2 * Urinalysis was remarkable for large occult blood; large leukocyte esterase; few bacteria; few yeast with hyphae; few budding yeast. * Arterial blood gases on trach mask at 40% showed pH 7.53; PCO2 33; PaO2 108; bicarbonate 27; base excess 4.2 * Chest x-ray showed no acute cardiopulmonary disease * Head CT showed diffuse atrophy unchanged from prior exam. * CT of the abdomen and pelvis showed chronic nonspecific urinary bladder wall thickening; bladder collapsed with Valdez catheter in place; chronic bilateral mid to lower lung zone groundglass opacity; nonobstructing left renal calculus; distended rectum. * The emergency room doctor diagnosed severe sepsis. The patient was given 2 L of IV fluid and broad-spectrum antibiotic-coated verge in the emergency department. Cultures were obtained. Valdez catheter was changed. As the patient was markedly tachypneic with increased work of breathing and use of accessory muscles during his stay in the emergency department. He was placed on CPAP and subsequently intubated and placed on mechanical ventilation. Critical care was consulted and the patient was admitted to the intensive care unit. Further examination revealed a stage II 6 x 2 cm sacral wound. Urine culture on admission grew out Cele of 2 different species. Sputum culture grew out Klebsiella pneumonia ESBL positive as well as pseudomonas. Blood culture grew out coag-negative staph and staph epidermidis. Both infectious disease and pulmonology were consulted. The patient slowly improved, was extubated, and critical care signed off on . However, on 07/06 the patient had to be placed back on the ventilator. A right sided pneumothorax was noted and patient underwent chest tube placement by interventional radiology. Pneumothorax has appeared to resolve on most recent chest x-ray. Sputum, blood, and urine cultures from 07/07/15 are all negative. White blood count is currently down to 7. Hemoglobin is 10.6. Albumen is suboptimal at 3.0. Renal function is normal. He is currently off anti-biotics. Current pain regimen includes the following: * Fentanyl patch; 50 g per hour * Morphine sulfate 5 mg sublingually or via the tube every 4 hours when necessary (he has been using 1-2 doses of this per day) The patient was tolerating CPAP earlier today and has since been removed from the ventilator and is on a T-piece at 40% FI02. At time of my visit, eyes are open. He intermittently tracks. He cannot follow commands and makes no attempt to interact. . (ALOK JONES) Advance Directives Living Will: Never completed Health Care Surrogate: Copy in medical record Durable Power of Cover Stitch Machine Operator: Never completed (ALOK JONES) Advance Directive Specifics Date completed: Patient visited Scott Mack, Cover Stitch Machine Operator in March and again in November 2014. The patient was encouraged to complete Advance directive documents but never did them. Dr. Pickard personally called Mr. Mack ([phone]) to check for advance directives. Health Care Surrogate(s): The patient completed a health care surrogate document dated 09/02/14 desigating his friend Bola Nolasco as surrogate. Mr. Nolasco was not aware of this and has declined serving in that capacity. The patient has an adult daughter -- Radha Foreman who is willing to serve as health care proxy decision maker. Patient's motherTeresa is aware. Significant change in goals: NO CODE. Goals aggressive short of NO CODE at this time. Daughter was asking questions about transition to comfort during last conversation, but has not called me back since. . (ALOK JONES) Objective Vital Signs Date Time Temp Pulse Resp B/P Pulse Ox O2 Delivery O2 Flow Rate FiO2 10/16/15 19:31 98 35 10/16/15 18:00 94 10/16/15 16:37 100 35 10/16/15 16:00 87 10/16/15 16:00 35 10/16/15 16:00 98.8 71 23 128/84 100 10/16/15 14:00 87 10/16/15 12:44 97 35 10/16/15 12:00 35 10/16/15 12:00 77 10/16/15 12:00 98.8 77 25 147/92 97 10/16/15 10:00 84 10/16/15 09:00 35 10/16/15 08:49 35 10/16/15 08:49 100 35 10/16/15 08:00 35 10/16/15 08:00 92 10/16/15 08:00 98.5 92 23 131/89 98 10/16/15 06:00 89 10/16/15 04:24 100 35 10/16/15 04:00 72 10/16/15 04:00 35 10/16/15 04:00 98.5 72 28 181/99 100 10/16/15 02:00 84 10/16/15 01:28 100 35 10/16/15 00:00 98.2 95 21 118/78 97 10/16/15 00:00 95 10/16/15 00:00 35 10/15/15 22:29 100 35 10/15/15 22:00 82 Intake & Output 10/16/15 10/16/15 07:00 19:00 Intake Total 2435 ml 1526 ml Output Total 2125 ml 1750 ml Balance 310 ml -224 ml IV Total 1632 ml 1045 ml Tube Feeding 583 ml 481 ml Other 220 ml Output Urine Total 2125 ml 1750 ml # Bowel Movements 2 Physical Exam CONSTITUTIONAL/GENERAL: This is a thin, pale, contracted, chronically ill appearing male on [facility] vent to trach. Unresponsive. TUBES/LINES/DRAINS: Trach; valdez cath, PIVs left, PEG tube; scd's SKIN: No jaundice, rashes, or lesions. Sacral wound, not visualized today. Diaphoretic. NECK: Tracheostomy to vent. CARDIOVASCULAR: Regular rate and rhythm without murmurs, gallops, or rubs. No JVD. Peripheral pulses symmetric. RESPIRATORY/CHEST: Scattered course breath sounds. Breath sounds equal bilaterally and diminished at bases. GASTROINTESTINAL: Abdomen soft, non-tender, nondistended. No guarding. Bowel sounds present. GENITOURINARY: Without palpable bladder distension. catheter in place. MUSCULOSKELETAL: Extremities without clubbing, cyanosis, or edema. Contractures noted. No mottlin . NEUROLOGICAL: Does not open eyes to voice or command. Unresponsive. Unable to follow even simple commands. No spontaneous movements seen. PSYCHIATRIC: Unresponsive. . (ALOK JONES) Diagnostic Tests Laboratory Laboratory Tests Test 10/14/15 10/14/15 10/15/15 10/16/15 05:26 17:17 06:44 10:11 White Blood Count 5.1 TH/MM3 6.8 TH/MM3 (4.0-11.0) (4.0-11.0) Red Blood Count 3.29 MIL/MM3 3.32 MIL/MM3 (4.50-5.90) (4.50-5.90) Hemoglobin 8.7 GM/DL 9.0 GM/DL 8.8 GM/DL (13.0-17.0) (13.0-17.0) (13.0-17.0) Hematocrit 26.9 % 28.2 % 27.4 % (39.0-51.0) (39.0-51.0) (39.0-51.0) Mean Corpuscular Volume 82.0 FL 82.6 FL (80.0-100.0) (80.0-100.0) Mean Corpuscular Hemoglobin 26.6 PG 26.5 PG (27.0-34.0) (27.0-34.0) Mean Corpuscular Hemoglobin 32.5 % 32.0 % Concent (32.0-36.0) (32.0-36.0) Red Cell Distribution Width 17.8 % 18.0 % (11.6-17.2) (11.6-17.2) Platelet Count 120 TH/MM3 145 TH/MM3 (150-450) (150-450) Mean Platelet Volume 8.8 FL 9.4 FL (7.0-11.0) (7.0-11.0) Neutrophils (%) (Auto) 73.7 % 76.5 % (16.0-70.0) (16.0-70.0) Lymphocytes (%) (Auto) 10.9 % 16.8 % (9.0-44.0) (9.0-44.0) Monocytes (%) (Auto) 6.6 % (0.0-8.0) 6.0 % (0.0-8.0) Eosinophils (%) (Auto) 2.4 % (0.0-4.0) 0.6 % (0.0-4.0) Basophils (%) (Auto) 6.4 % (0.0-2.0) 0.1 % (0.0-2.0) Neutrophils # (Auto) 3.8 TH/MM3 5.2 TH/MM3 (1.8-7.7) (1.8-7.7) Lymphocytes # (Auto) 0.6 TH/MM3 1.1 TH/MM3 (1.0-4.8) (1.0-4.8) Monocytes # (Auto) 0.3 TH/MM3 0.4 TH/MM3 (0-0.9) (0-0.9) Eosinophils # (Auto) 0.1 TH/MM3 0.0 TH/MM3 (0-0.4) (0-0.4) Basophils # (Auto) 0.3 TH/MM3 0.0 TH/MM3 (0-0.2) (0-0.2) CBC Comment DIFF FINAL DIFF FINAL Differential Comment Sodium Level 140 MEQ/L 140 MEQ/L (136-145) (136-145) Potassium Level 3.4 MEQ/L 3.7 MEQ/L (3.5-5.1) (3.5-5.1) Chloride Level 104 MEQ/L 102 MEQ/L (98-107) (98-107) Carbon Dioxide Level 29.7 MEQ/L 30.2 MEQ/L (21.0-32.0) (21.0-32.0) Anion Gap 6 MEQ/L (5-15) 8 MEQ/L (5-15) Blood Urea Nitrogen 8 MG/DL (7-18) 6 MG/DL (7-18) Creatinine 0.21 MG/DL 0.19 MG/DL (0.60-1.30) (0.60-1.30) Estimat Glomerular Filtration 475 ML/MIN 533 ML/MIN Rate (>89) (>89) Random Glucose 124 MG/DL 119 MG/DL (74-106) (74-106) Calcium Level 8.1 MG/DL 8.4 MG/DL (8.5-10.1) (8.5-10.1) Phosphorus Level 2.0 MG/DL 2.1 MG/DL 2.0 MG/DL 1.2 MG/DL (2.5-4.9) (2.5-4.9) (2.5-4.9) (2.5-4.9) Magnesium Level 1.6 MG/DL 1.6 MG/DL (1.5-2.5) (1.5-2.5) Random Vancomycin Level 3.9 COMMENT (ALOK JONES) Result Diagram: 10/15/15 0644 10/15/15 0644 Microbiology Microbiology Date/Time Procedure Status Source Growth 10/13/15 14:32 Aerobic Blood Culture - Preliminary Resulted Blood Other NO GROWTH IN 3 DAYS 10/13/15 14:32 Anaerobic Blood Culture - Preliminary Resulted Blood Other NO GROWTH IN 3 DAYS 10/12/15 17:30 Urine Culture - Final Complete Urine Catheterized Urine Cele Tropicalis 10/12/15 17:27 Gram Stain - Final Complete Sputum Endotracheal 10/12/15 17:27 Sputum Culture - Final Complete Klebsiella Pneumoniae Pseudomonas Aeruginosa Klebsiella Pneumoniae Esbl Pos Imaging Last Impressions Chest X-Ray 10/16/15 0600 Signed Impressions: Service Date/Time: Friday, October 16, 2015 04:25 - CONCLUSION: 1. Subsegmental basilar opacity. No effusion or pneumothorax. The tracheostomy is in satisfactory position. Minimal scoliosis. Amaury Ellsworth MD Upper Extremity Ultrasound 10/13/15 0000 Signed Impressions: Service Date/Time: Tuesday, October 13, 2015 09:51 - CONCLUSION: 1. No evidence of deep venous thrombosis. John Anderson MD Abdomen X-Ray 10/12/15 0000 Signed Impressions: Service Date/Time: Monday, October 12, 2015 17:37 - CONCLUSION: 1. Gastrostomy tube in place 2. Unremarkable bowel gas pattern. Salazar Thurman MD Renal Ultrasound 10/07/15 0000 Signed Impressions: Service Date/Time: Wednesday, October 07, 2015 18:29 - CONCLUSION: 1. No acute findings. 3.6 cm left renal cyst. Valdez catheter in bladder. Amaury Ellsworth MD Tunnelled Chest Tube Removal 08/05/15 1100 Signed Impressions: Service Date/Time: Wednesday, August 05, 2015 11:00 - CONCLUSION: Uncomplicated chest tube removal. Blaine Jackson MD Chest Tube Change 07/31/15 0000 Signed Impressions: Service Date/Time: Friday, July 31, 2015 14:34 - CONCLUSION: Uncomplicated reposition of previously placed chest tube as above. Blaine Jackson MD Chest Tube Insertion 07/30/15 0000 Signed Impressions: Service Date/Time: July 14:50 - CONCLUSION: Uncomplicated chest tube placement as above. Blaine Jackson MD Catheter Change 07/27/15 0000 Signed Impressions: Service Date/Time: Monday, July 27, 2015 14:43 - CONCLUSION: Uncomplicated gastrostomy tube exchange as above. Blaine Jackson MD Chest CT 07/11/15 Signed Impressions: Service Date/Time: Saturday, July 11, 2015 09:49 - CONCLUSION: Scattered patchy densities significantly improved from previous study. Tiny anterior right basilar pneumothorax. Right-sided chest tube in good position. Néstor Matamoros MD Head CT 06/18/151902 Signed Impressions: Service Date/Time: June 19:31 - CONCLUSION: Diffuse atrophy unchanged. No acute intracranial findings. Kush Briscoe MD Abdomen/Pelvis CT 06/18/151902 Signed Impressions: Service Date/Time: June 19:36 - CONCLUSION: 1. Chronic nonspecific urinary bladder wall thickening. Bladder collapsed with Valdez catheter in place. 2. Chronic bilateral mid to lower lung zone groundglass opacity. 3. Nonobstructing left renal calculus. 4. Distended rectum. Kush Briscoe MD Procedures * Mechanical ventilation * Chest tube placement on right 07/07/15 * Chest tube removal 07/17/15 . (ALOK JONES-Wen) Assessment and Plan Disease Oriented Problem List: (1) Acute respiratory failure Comment: 10/13/15 - Halicat for hypotension and tube feeding coming from trach. - Back on mech vent in ICU. . (2) Chronic respiratory failure (3) Septic shock (4) Pneumonia Comment: Aspiration. Repeat cultures pending. . (5) UTI (urinary tract infection) Comment: Repeat culture pending. . (6) Parkinson disease (7) Moderate malnutrition Symptom Scale: (1) Pain 0-10 Scale: Unable to quantify Comment: Sources of pain might include wound, prolonged bedbound status, contractures, restraints, valdez, vascular access catheters. Appears comfortable on current regimen. ,l (2) Dyspnea 0-10 Scale: Unable to quantify Comment: On mech vent. . (3) Malnutrition 0-10 Scale: Unable to quantify Comment: Tube feedings coming from trach site 10/11. . (4) Encephalopathy 0-10 Scale: Unable to quantify Comment: Remains unresponsive. (5) Increased tracheal secretions 0-10 Scale: Unable to quantify Comment: PRN Levsin available. 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 Severe dementia. Daughter, mother, and brother are involved. Spiritual: Jew. Has been a member for the [employer] and members have provided both community support and spiritual support in the past. Legal: No advance directives. Daughter (Radha Foreman) is legal proxy and lives 4 hours away. She can be quite difficult to contact by phone. Ethical issues impacting care: None. . Important Contacts * Radha Foreman (daughter and proxy) [phone] * Teresa Perea (mother -- lives in [place]) [phone] . Prognosis Patient has end stage Parkinson's with end stage dementia. 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 He is a chronic trach/PEG tube patient with contractures and skin breakdown. Should family continue to want aggressive care, he will continue to go back and forth from facility to hospital until such time that we are no longer able to overcome the sepsis. Patient is hospice eligible whenever family is ready to transition to "comfort measures only." . Code Status: No Code Plan * Decision making: Patient is incapacitated and will not regain capacity. There is no designated health care surrogate. Daughter, Radha Foreman, is legal proxy under [place] statutes but can be hard to contact at times. * NO CODE * Goals aggressive short of NO CODE at this time. Radha Giron was asking questions about transition to comfort during last conversation on 10/13/15, but has not called me back since. * Pain: Sources of pain are unclear as patient in non communicative, but would include prolonged bedbound status; tubes and lines; contractures; wound; etc. Current regimen appears to adequate . No further recommendations at this time. * Dyspnea: Dyspnea due to aspiration pneumonia. Has previously been challenging to get off vent. * Malnutrition: Tolerating tube feeds, but albumin remains low. * Secretions: PRN Levsin available. Remains high risk for aspiration due to secretions and tube feeding. * Palliative care will try and meet with Radha (proxy) in person when she next comes to visit. She continues to insist on aggressive goals in spite of the incredibly bleak prognosis. . . (ALOK JONES) Attestation To help prompt me to consider important information that might be impacting today's encounter and assessment, information from prior notes written by myself or my colleagues may have been "brought forward" into today's note. My signature on this note, however, is an attestation that I personally performed the exam, history, and/or decision-making noted today, and, unless otherwise indicated, the interactions with patient, family, and staff as well as the review of records all occurred today. I also attest that the listed assessment and stated plan reflect my best clinical judgment today based on the combination of historical information, prior notes, and today's exam/ interactions. When time spent is documented, it refers only to time spent today by the signer, or if indicated, combined time spent today by collaborating physician/nurse practitioner. (ALOK JONES) Collaborating MD Comments Chart reviewed. Case discussed with palliative care SHIPPING AND RECEIVING SPECIALIST. Above note reviewed and I concur. . (Pascual Pickard MD) ALOK JONES Oct 16, 2015 21:09 Pascual Pickard MD Nov 01, 2015 13:43
[2015-10-16] MEDS: ENOXAPARIN SODIUM 40 MG/0.4 ML SYRINGE SQ SCH (23:49)
[2015-10-16] MEDS: OLANZapine 5 MG TAB GT SCH (23:50)
[2015-10-17] VITALS (18 sets, daily range): BP systolic 103–154; BP diastolic 65–96; PULSE 67–102; RESP 19–27; TEMP 98.2–99.3; O2SAT 97–100
[2015-10-17] MEDS: MORPHINE SULFATE 4 MG/ML INJ IV PUSH PRN ×2 (01:01→19:51)
[2015-10-17] MEDS: LORazepam 2 MG/ML VIAL IVP PRN (02:07)
[2015-10-17] MEDS: RESP: ALBUTEROL 2.5 MG/IPRATROPIUM 0.5 MG NEB (SCH) NEB ×4 (03:35→20:37)
[2015-10-17] MEDS: clonazePAM 1 MG TAB PO SCH ×3 (04:44→21:41)
[2015-10-17] MEDS: MEROPENEM INJ 1,000 MG in SODIUM CHLORIDE 0.9% INJ 100 ML IV SCH ×3 (04:44→21:52)
[2015-10-17] MEDS: CARBIDOPA/LEVODOPA 25 MG/100 MG TAB GT SCH ×3 (04:44→21:41)
--- NOTE | 2015-10-17 05:00 | RADRPT ---
EXAM DATE/TIME: 10/17/2015 03:41 [facility] COMPARISON: CHEST SINGLE AP, October 16, 2015, 4:25. INDICATIONS : Shortness of breath, possible pulmonary disease. MEDICAL HISTORY : Hypertension. Cardiovascular disease. Diabetes mellitus type II. SURGICAL HISTORY : Tracheostomy ENCOUNTER: Subsequent ACUITY: 2 weeks PAIN SCORE: Non-responsive. LOCATION: Bilateral chest FINDINGS: A single view of the chest demonstrates tracheostomy in satisfactory position. A new hazy opacity in the left lung, increased from October 15. Trace pleural fluid on the left. Right lung relatively cherelle ar. No pneumothorax. CONCLUSION: 1. Increase in ill-defined airspace disease in the left lung over the last day. Tracheostomy unchange d. Amaury Ellsworth MD on October 17, 2015 at 4:56 Board Certified Radiologist. This report was verified electronically.
[2015-10-17] MEDS: INSULIN NovoLIN REGULAR SUPPLEMENTAL SCALE SQ SCH ×3 (06:00→18:38)
[2015-10-17 07:11] LABS: BASOPHIL % 0.2 % (0.0-2.0); EOSINOPHIL # 0.1 TH/MM3 (0-0.4); EOSINOPHIL % 1.1 % (0.0-4.0); HEMATOCRIT 28.2 % (39.0-51.0); HEMO FLAGS DIFF FINAL; LYMPH % 10.5 % (9.0-44.0); LYMPHOCYTE # 1.3 TH/MM3 (1.0-4.8); MEAN CELL VOLUME 81.6 FL (80.0-100.0); MEAN CORPUSCULAR HEMOGLOBIN 26.4 PG (27.0-34.0); MEAN CORPUSCULAR HGB CONC 32.4 % (32.0-36.0); MONO % 5.2 % (0.0-8.0); PLATELET COUNT 165 TH/MM3 (150-450); RED BLOOD COUNT 3.45 MIL/MM3 (4.50-5.90); RED CELL DISTRIBUTION WIDTH 17.7 % (11.6-17.2)
[2015-10-17 07:18] LABS: ALT (GPT) 16 U/L (12-78); ANION GAP 6 MEQ/L (5-15); AST (GOT) 8 U/L (15-37); BLOOD UREA NITROGEN 8 MG/DL (7-18); CHLORIDE 103 MEQ/L (98-107); GLOMERULAR FILTRATION RATE 341 ML/MIN (>89); POTASSIUM 3.1 MEQ/L (3.5-5.1); SODIUM (NA) 143 MEQ/L (136-145)
[2015-10-17 07:20] LABS: ALKALINE PHOSPHATASE 60 U/L (45-117); TOTAL BILIRUBIN ADULT 0.2 MG/DL (0.2-1.0)
--- NOTE | 2015-10-17 07:47 | HHI.CCPN ---
Subjective Remarks/Hospital Course 06/17: Pt is a 54 yr man with multiple medical problems including Parkinson's disease, advanced dementia, hyponatremia, anxiety, pneumonia, GERD, cognitive disorder, and multidrug resistant UTI- ESBL02/19/15 , who resides in a [facility]. Pt by report was found by staff in fpc to be less alert and having respiratory difficultly and fevers. Pt was brought to ED adn placed on ventilator. His workup was inclusive of labs, chest xray and ct head and abd/pelvis. WBC 16.4, +UTI, lactic acid 4, troponin ,0.02, BUN/ cre 18/ 0.76. CT head 06/18/15: diffuse atrophy unchanged. No acute intracranial findings ct abd/ pelvis with IV contrast: 06/18/15 Conclusion: 1. Chronic nonspecific urinary bladder wall thickening. Bladder collapsed with Putnam catheter in place. 2.Chronic bilateral mid to lower zone groundglass opacity. 3. Nonobstructing left renal calculus. 4. Distended rectum Pt admitted and fluid and abx ordered. 06/18: Drowsy, easily arousable. On mechanical ventilation via tracheostomy. Tachypneic. Resting tremor noted. 06/19: Drowsy, arousable. On mechanical ventilation via tracheostomy. 06/20: Drowsy, arousable. Remains on mechanical ventilation via tracheostomy. We'll repeat blood cultures, UA and urine cultures. Fluconazole IV added in view of yeast in urine. 07/06: Reconsulted as patient return to the ventilator on a right ventricular due to tachypnea. Low-grade temperatures. Tolerating tube feeding. Extremity encephalopathic demented patient with difficult neurological examination. 07/07: Status post chest tube placement by IR for right pneumothorax 07/06. Afebrile. Tolerating tube feeds. Positive BM. Currently tachypneic on the ventilator. Does not appear to be any acute distress. 07/08: Afebrile. Tolerating tube feeding. He is comfortable currently on CPAP trials 11/10. Positive BM. 07/09: Afebrile. Tolerating tube feeding. Appears comfortable on T bar. Positive BM. 07/10: Afebrile. Eyes are open. Remained on T piece overnight. Tolerating tube feeding. 07/11: MAXIMUM TEMPERATURE 100. Currently 98.6. Eyes are open. On ACV overnight secondary to "tachypnea and sweating". Switching back to PSV trials today. Goal is T piece during daytime, CPAP at night. 07/12: No acute events overnight. On PSV 15/5 -attempt TP up to 6 hours today. No pneumothorax on chest x-ray 07/13: Placed back on full ventilator support for tachypnea. Otherwise clinically unchanged. No fever today 07/14: Patient was on T piece yesterday evening, placed back on PSV overnight, patient mechanical ventilation this morning. Patient appears to be struggling with mechanical ventilation. Patient placed back on PSV with improvement 07/15: Patient placed back on mechanical ventilation last evening due to respiratory rate. It was indicated patient was tachypnea can the 40s. Patient on mechanical ventilation this time with respiration rate mid 20s. Chest tube still in place without any output, chest x-ray still indicating resolution of pneumothorax. 07/16: Patient seen and examined today. Patient placed back on mechanical ventilation overnight due to respiratory rate. Even on mechanical ventilation patient has respiration rate in the 30s. Patient afebrile, blood pressure stable. Continue vent weaning 07/17: Patient seen and examined. Currently afebrile. Currently on CPAP 15/5 @ 40%. Patient is awake with open mouth resting in bed in no apparent acute distress. Tolerating tube feeding. 2 bowel movements. 07/18: No neurological changes. Afebrile. 2 bowel moments. Tolerating tube feeding. We'll attempt TP trials today. On CPAP since 07/15 07/19 No events overnight. On CPAP with PS: 10, PEEP: 5 and FIO2 35%. Afebrile. On no sedation. 07/20 No events overnight. Tolerating CPAP. Afebrile. 07/21: Remains on CPAP. Attempt T piece trial today. Afebrile. One bowel movement. Tolerating tube feeding. 07/22: Afebrile. Positive BM. Tolerating tube feeding. Noted switched tracheostomy to #6 Shiley cuffed fenestrated. Neurologically unchanged 07/23: Afebrile. Positive BM. Tolerating tube feeding. Questionable leak in exchange trach. Place back on a rate/ACV overnight. Insufflated seems to be doing better at the present time. Will check chest x-ray. Possible he might need #6 XLT versus replacement of chronic #8 Shiley. 07/24: Tolerating TP today, RR in low 30s patient appears comfortable. No acute events overnight 07/25: Remains off the ventilator more than 36 hours now. Intermittently tachypneic probably breathing. Chest x-ray was clear yesterday. No acute events reported overnight. PEG not functioning per RN 08/02: Patient was transferred back to critical care service due to continuing ventilator management, tachypnea. Patient clinical status with no significant change. Patient with low-grade fever 100.2, 08/03: Patient seen and examined today. No significant change in clinical status. Patient still with chronic tachypnea. Patient afebrile now. 08/04: Patient seen and examined today. No change in clinical status. Patient still continues to have chronic tachypnea. Patient afebrile. Continue vent weaning 08/05: Patient seen and examined today. Patient had chest tube removed yesterday , chest x-ray shows redevelopment of pneumothorax. Chest tube replaced. Otherwise, patient still on ventilator with tachypnea. Afebrile 08/06: Patient seen and examined today. Patient went to have chest tube placed, repeat chest x-ray did not indicate any pneumothorax. No overnight events. We' ll need to pursue LTAC placement 08/07 No events overnight. On ventilator via trach. Afebrile. 08/08 Patient tolerated CPAP x4 hrs yesterday. Afebrile. On no sedation. 08/09 No events overnight. Tolerated CPAP x 12 hrs yesterday. Afebrile. 08/10 Patient tolerated TP's x 12 hrs yesterday back on ACV overnight. 08/11 No events overnight, currently on TP's with 40% FIO2. Afebrile. 08/12 On CPAP 10/5. Tolerated Tpiece 3 hours earlier today. Afebrile. 08/13 On CPAP 10/5. Not tolerating CPAP as well over last few days and RT notes challenge with suctioning respiratory secretions adequately. Discussing with healthcare proxy regarding exchange trach to 8.0. 08/14 Nursing and RT staff having continued difficulty suctioning respiratory secretions via 6.0 tracheostomy. KAREN Garcia did not consent to stoma dilation and trach upsize yesterday but said she would call back and let me know but no return call. Contacted again today and left a message. Afebrile. On CPAP 10/5. Brow furrowing on exam, appears to be in pain but pain not localizable. Tolerating tube feeds, had BM yesterday 08/15 Not tolerating CPAP today. Contacted healthcare surrogate again and discussed need for trach change. She consented and trach was dilated and up- sized to 8.0 Distal XLT to facilitate pulmonary toilet and to address volume leak. 08/16 No events overnight. Remains on ventilator via trach. Afebrile. Tolerating TF. 08/17 No events overnight. Afebrile. 08/18 Patient tolerated CPAP x 4 hrs yesterday. Afebrile.On ventilator via trach. 08/19 On CPAP 25/06. Temp max 99.3 08/20 Stenotrophomonas in sputum, started on Levaquin per ID. Temp max 99.8. On CPAP 20/09. Tube feeds were held because PEG was clogged but now PEG is functioning. 08/21 No events overnight. Afebrile. Remains on ventilator via trach. Has been tolerating CPAP trials for last 2 days. 08/22 No events overnight. Afebrile , Has been on CPAP all night with PS: 20, PEEP; 5 and FIO2 35%. 08/23 No events overnight. Remains on CPAP, T:99.9 08/24 No events overnight. On CPAP PS 10, PEEP; 5 and FIO2 35% overnight. Afebrile. 08/25 No events overnight. Afebrile. On CPAP overnight with PS 8, PEEP: 5 and FIO2 35%, afebrile. Tolerating TF. 08/26 Tolerating Tpiece. 08/27 Tolerated Tpiece yesterday and overnight. However this evening desaturated and was placed back on CPAP. Dr. Mistry attempted to update daughter Radha Foreman and discuss his overall poor prognosis for recovery, but call got disconnected midway through call and could not reach her back 08/28 On PSV 10/5 40% today. Afebrile. 08/29 On CPAP overnight. Now on Tpiece 70% per pulmonology. Increased yellow secretions noted. Temp max 99.1 Nursing staff expresses concern that he appears uncomfortable during all nursing care. Called elsa Garcia to update , no answer, left message to call me. 08/30: On CPAP overnight. Currently on T piece at 45%. Currently afebrile. Positive BM. Tolerating tube feeding. 08/31: On CPAP overnight. Will return T piece at 35%. MAXIMUM TEMPERATURE 99.6. 5 bowel movements. Tolerating tube feeds. Neurological examination unchanged. 09/01: Tmax 99.2. Currently afebrile. Currently in TPs at 35%. 7 bowel movement overnight. Tolerating tube feeding. Subjective: 09/19: Ciarra called secondary to aspiration on Gen. medical floor. Transfer to ICU and placed on mechanical ventilation. ABG shows CO2 retention. Etc. revealed no acute cardiac 20 finds however copious message to feed suctioned from trach tube 09/20 No events overnight. Afebrile. On ACV with RR 16, TV 500, PEEP: 5 and FIO2 40%. 09/21 No events overnight. Afebrile. 09/22 No events overnight. Tolerated CPAP all day yesterday with PS 12, PEEP:5 and FIO2 35%. Afebrile. 09/23 No events overnight. On no sedation Tolerated CPAP yesterday. Had T:100.3 last night. 09/24 Patient tolerated TP's x 6 hrs yesterday On CPAP 12/5 with 35% FIO2 overnight. Afebrile. 09/25 No events overnight. On CPAP overnight and TP's during day. Tolerating tube feeds. 10/11 Reconsult: Ciarra was called as patient was found hypotensive with SBP 80' s and tube feeds coming from trach site. Patient is receiving 1L bolus NS and STAT CXR showed mild pulm edema. On arrival to ICU patient was connected to ventilator ( On ACV RR 16, TV 500, PEEP:5 and FIO2 40% with sats 95%. Current BP 125/91 , P:81 10/12 Patient remains on ventilator overnight. Borderline low BP with MAP ranges 67-72. Afebrile. On no sedation. 10/13 Patient is on ventilator via trach, afebrile, WBC trending down. Patient was hypotensive yesterday responded to fluid resuscitation not on any pressors. 10/14: No acute events overnight. WBC count has normalized. Will start SBT as tolerated. CXR in am 10/15 No acute events overnight. Phosphorus low needs replacement. Otherwise neuro exam remains unchanged. remains on CPAP 10/16 Patient remains on ventilator via trach. On no sedation. Afebrile. Objective - Vital Signs Date Time Temp Pulse Resp B/P Pulse Ox O2 Delivery O2 Flow Rate FiO2 10/17/15 06:00 74 10/17/15 04:00 98.6 22 135/92 100 10/17/15 04:00 35 10/15/15 19:00 Mechanical Ventilator 10/15/15 07:00 6.00 Intake and Output 10/16/15 10/16/15 10/17/15 08:00 16:00 00:00 Intake Total 1206 ml 1526 ml 1296 ml Output Total 850 ml 1750 ml 1900 ml Balance 356 ml -224 ml -604 ml Result Diagram: 10/17/15 0533 10/17/15 0533 Other Results Laboratory Tests Test 10/16/15 10/17/15 10:11 05:33 Phosphorus Level 1.2 MG/DL White Blood Count 12.0 TH/MM3 Red Blood Count 3.45 MIL/MM3 Hemoglobin 9.1 GM/DL Hematocrit 28.2 % Mean Corpuscular Volume 81.6 FL Mean Corpuscular Hemoglobin 26.4 PG Mean Corpuscular Hemoglobin 32.4 % Concent Red Cell Distribution Width 17.7 % Platelet Count 165 TH/MM3 Mean Platelet Volume 9.1 FL Neutrophils (%) (Auto) 83.0 % Lymphocytes (%) (Auto) 10.5 % Monocytes (%) (Auto) 5.2 % Eosinophils (%) (Auto) 1.1 % Basophils (%) (Auto) 0.2 % Neutrophils # (Auto) 10.0 TH/MM3 Lymphocytes # (Auto) 1.3 TH/MM3 Monocytes # (Auto) 0.6 TH/MM3 Eosinophils # (Auto) 0.1 TH/MM3 Basophils # (Auto) 0.0 TH/MM3 CBC Comment DIFF FINAL Differential Comment Sodium Level 143 MEQ/L Potassium Level 3.1 MEQ/L Chloride Level 103 MEQ/L Carbon Dioxide Level 34.0 MEQ/L Anion Gap 6 MEQ/L Blood Urea Nitrogen 8 MG/DL Creatinine 0.28 MG/DL Estimat Glomerular Filtration 341 ML/MIN Rate Random Glucose 119 MG/DL Calcium Level 8.4 MG/DL Total Bilirubin 0.2 MG/DL Aspartate Amino Transf 8 U/L (AST/SGOT) Alanine Aminotransferase 16 U/L (ALT/SGPT) Alkaline Phosphatase 60 U/L Total Protein 5.8 GM/DL Albumin 2.4 GM/DL Imaging Last Impressions Chest X-Ray 10/17/15 0600 Signed Impressions: Service Date/Time: Saturday, October 17, 2015 03:41 - CONCLUSION: 1. Increase in ill-defined airspace disease in the left lung over the last day. Tracheostomy unchanged. Amaury Ellsworth MD Upper Extremity Ultrasound 10/13/15 0000 Signed Impressions: Service Date/Time: Tuesday, October 13, 2015 09:51 - CONCLUSION: 1. No evidence of deep venous thrombosis. John Anderson MD Abdomen X-Ray 10/12/15 0000 Signed Impressions: Service Date/Time: Monday, October 12, 2015 17:37 - CONCLUSION: 1. Gastrostomy tube in place 2. Unremarkable bowel gas pattern. Salazar Thurman MD Renal Ultrasound 10/07/15 0000 Signed Impressions: Service Date/Time: Wednesday, October 07, 2015 18:29 - CONCLUSION: 1. No acute findings. 3.6 cm left renal cyst. Putnam catheter in bladder. Amaury Ellsworth MD Tunnelled Chest Tube Removal 08/05/15 1100 Signed Impressions: Service Date/Time: Wednesday, August 05, 2015 11:00 - CONCLUSION: Uncomplicated chest tube removal. Blaine Jackson MD Chest Tube Change 07/31/15 0000 Signed Impressions: Service Date/Time: Friday, July 31, 2015 14:34 - CONCLUSION: Uncomplicated reposition of previously placed chest tube as above. Blaine Jackson MD Chest Tube Insertion 07/30/15 0000 Signed Impressions: Service Date/Time: July 14:50 - CONCLUSION: Uncomplicated chest tube placement as above. Blaine Jackson MD Catheter Change 07/27/15 0000 Signed Impressions: Service Date/Time: Monday, July 27, 2015 14:43 - CONCLUSION: Uncomplicated gastrostomy tube exchange as above. Blaine Jackson MD Chest CT 07/11/15 0000 Signed Impressions: Service Date/Time: Saturday, July 11, 2015 09:49 - CONCLUSION: Scattered patchy densities significantly improved from previous study. Tiny anterior right basilar pneumothorax. Right-sided chest tube in good position. Néstor Matamoros MD Head CT 06/18/15 976 Signed Impressions: Service Date/Time: June 19:31 - CONCLUSION: Diffuse atrophy unchanged. No acute intracranial findings. Kush Briscoe MD Abdomen/Pelvis CT 06/18/15 1903 Signed Impressions: Service Date/Time: June 19:36 - CONCLUSION: 1. Chronic nonspecific urinary bladder wall thickening. Bladder collapsed with Putnam catheter in place. 2. Chronic bilateral mid to lower lung zone groundglass opacity. 3. Nonobstructing left renal calculus. 4. Distended rectum. Kush Briscoe MD Objective Remarks GENERAL: 54-year-old male, cachectic, debilitated with contractures on ventilator via trach. HEENT: NC/AT. PERRL. MMM. OP without erythema or exudates NECK: No JVD. Supple. 8.0 Distal XLT trach in place CARDIAC: RRR. S1/S2. No S4. No murmurs, clicks gallops or rubs. LUNGS: B/L eqal air entry with few coarse BS ABDOMEN: S/NT/ND. Positive BS EXTREMITIES: 1+ dependent pedal edema. Contractures and deformities of fingers. Stage III coccyx/sacral decubitus ulcer NEUROLOGY: Patient with significant contractures of the bilateral lower extremity, upper extremities. Eyes open spontaneously. Temporal and facial muscle wasting, muscular atrophy all extremities. Procedures 07/26- PEG replacement 07/29- right pigtail catheter placement for new pneumothorax Date of Insertion: Oct 05, 2015 A/P Assessment and Plan Neuro/Psych: Parkinson's disease Cognitive disorder not otherwise specified Chronic encephalopathy Dementia Depression Contractures On no sedation, monitor neuro status. CT head 06/18/15: - diffuse atrophy unchanged. No acute intracranial findings Continue Sinemet 25/100 q8 via PEG, Seroquel 50 mg twice a day, olanzapine 5 mg a night, Klonopin 2 mg every 8 hours, Paxil 20 daily Continue Lortab when necessary pain and fentanyl patch 50 g every 3 days for pain management. Fentanyl bolus prn breakthrough pain or if needed for turning/ nursing care/etc. Resp: Acute on chronic respiratory failure Chronic trach #8 Shiley distal XLT Pneumonia, aspiration (ESBL Klebsiella and Pseudomonas pneumonia) Right pneumothorax status post pigtail catheter 2 (resolved) Continue with vent support keep sat >90%. Ventilator bundle, pulm toilet, trach care, daily SBT Pulmonary Dr. D'corey following. On Prednisone 60mg daily Exchanged to 8 Distal XLT on 08/15 to facilitate suctioning, trach care. Bronchodilators ( DuoNeb) Cardiac History of orthostasis History of CAD History dyslipidemia History of hypertension Continue Midodrine 5 mg BID Monitor HR and BP keep MAP>65mmHg. Lactic acid 2.4 10/11 GI: Chronic moderate protein energy malnutrition Dysphagia Status post PEG Internal hemorrhoids Gastroesophageal reflux disease - 10/11 KUB abdomen: PEG tube in place. Unremarkable bowel gas pattern. - On TF Jevity 1.5 @ 60ml/hr, on Reglan 5mg Q8 PRN for high residuals. - On Prevacid 30 mg per PEG tube daily for GERD FEN/Renal: Nonobstructing left renal calculus - Monitor renal function, I/O's. electrolytes replacement per protocol. Will need K replacement today ID: Sepsis Aspiration pneumonia Cele UTI 10/12 BC: NGTD 10/11 BC: NGTD 10/11 Urine cx: C. Tropicalis 10/11 Sputum: ESBL Klebsiella and Pseudomonas pneumonia 10/10 Urine: C. Tropicalis 09/21 Urine cx: Pseudomonas ? colonized 09/19 Sputum cx: Pseudomonas, Kleb pneumonia ESBL pos Candiduria (cele tropicalis urine cx 08/17) ESBL positive Klebsiella/Pseudomonas pneumonia Stenotrophomonas in sputum 08/17 MRSA colonization sepsis UTI Klebsiella ESBL positive (has been treated) Continue with abx ( Merrem,, Diflucan) s/p Vanco 1gram x1 10/12, follow up on cxs and monitor for signs of infections ( Fever, WBC) ID service is following- Dr. Enoc Moss. Discontinued Micafungin 10/13. No further need for Vanc Endo: On SSI ( medium) with accuchecks Q6. Heme Normocytic Anemia - Monitor CBC MSK Bilateral lower extremity Contractures Stage III sacral decubitus present on admission - Wound care and PT on case Prophylaxis - GI - Prevacid - DVT - SCDs/ Lovenox. ACCESS: PIVs Level 3 Antonio Carr MD Oct 17, 2015 07:47
[2015-10-17] MEDS: QUEtiapine FUMARATE 25 MG TAB G-TUBE SCH ×2 (09:44→19:50)
[2015-10-17] MEDS: GABAPENTIN 300 MG CAP G-TUBE SCH ×2 (09:44→19:50)
[2015-10-17] MEDS: LANSOPRAZOLE SOLUTAB 30 MG TAB NG SCH (09:44)
[2015-10-17] MEDS: predniSONE 20 MG TAB PO SCH (09:44)
[2015-10-17] MEDS: LACTOBACILLUS ACIDOPHILUS TAB PO SCH ×3 (09:44→18:38)
[2015-10-17] MEDS: CHLORHEXIDINE 0.12% (ORAL KIT) 15 ML CUP MT SCH ×2 (09:45→19:49)
[2015-10-17] MEDS: PARoxetine HCL 20 MG TAB G-TUBE SCH (09:45)
[2015-10-17] MEDS: MIDODRINE 5 MG TAB G-TUBE SCH ×2 (09:45→19:50)
[2015-10-17] MEDS: SODIUM CHLORIDE 0.9% FLUSH 5 ML FLUSH IVF SCH ×2 (09:51→19:50)
[2015-10-17] MEDS: COLLAGENASE OINT 30 GM TUBE TOP SCH (13:00)
[2015-10-17] MEDS: FLUCONAZOLE 400 MG PREMIX BAG 200 ML IV SCH (13:01)
[2015-10-17] MEDS: ARTIFICIAL TEARS OPTH SOLN 15 ML BTL EACH EYE SCH ×2 (14:07→18:39)
--- NOTE | 2015-10-17 16:51 | HHI.PR ---
Subjective Remarks 54 YOWM with ChRF,Trach, multiple uti No fever Gets anxious. No Fever Mod amount of trach secretions. Tolerates CPAP gets techypnoic Objective Vital Signs Vital Signs Date Time Temp Pulse Resp B/P Pulse Ox O2 Delivery O2 Flow Rate FiO2 10/17/15 15:46 100 35 10/17/15 14:00 75 10/17/15 12:32 100 35 10/17/15 12:00 98.5 73 22 138/96 99 10/17/15 12:00 73 10/17/15 12:00 35 10/17/15 10:00 72 10/17/15 08:00 98.3 79 20 109/77 99 10/17/15 08:00 79 10/17/15 08:00 35 10/17/15 07:33 100 35 10/17/15 06:00 74 10/17/15 04:00 98.6 74 22 135/92 100 10/17/15 04:00 74 10/17/15 04:00 35 10/17/15 03:35 100 35 10/17/15 02:00 67 10/17/15 01:06 17 10/17/15 00:00 67 10/17/15 00:00 98.2 67 19 154/95 99 10/17/15 00:00 35 10/16/15 23:43 100 35 10/16/15 22:00 85 10/16/15 20:00 35 10/16/15 20:00 85 10/16/15 20:00 98.2 85 26 141/93 100 10/16/15 19:31 98 35 10/16/15 18:00 94 I/O 10/16/15 10/16/15 10/16/15 10/17/15 10/17/15 10/17/15 07:00 15:00 23:00 07:00 15:00 23:00 Intake Total 1206 ml 1526 ml 1982 ml 1007 ml Output Total 850 ml 1750 ml 2500 ml 2200 ml Balance 356 ml -224 ml -518 ml -1193 ml IV Total 795 ml 1045 ml 1203 ml 463 ml Tube Feeding 311 ml 481 ml 779 ml 494 ml Other 100 ml 50 ml Output Urine Total 850 ml 1750 ml 2500 ml 2200 ml # Bowel Movements 1 2 3 Result Diagram: 9/11/21 53210/17/15532 Objective Remarks GENERAL: MBMN male on Vent. SKIN: Warm and dry. HEAD: Normocephalic. EYES: No scleral icterus. No injection or drainage. NECK: Supple, trachea midline. No JVD or lymphadenopathy. has trach CARDIOVASCULAR: Regular rate and rhythm without murmurs, gallops, or rubs. RESPIRATORY: Breath sounds equal bilaterally. No accessory muscle use. GASTROINTESTINAL: Abdomen soft, non-tender, nondistended. PEG tube in place MUSCULOSKELETAL: No cyanosis, or edema. BACK: Nontender without obvious deformity. No CVA tenderness. A/P Assessment and Plan VDRF S/P Trach Parkinson's diasease Dementia Aspiration PLAN: TF Cont CPAP Abx Per ID DW pt's brother at BS ACV prn sob Severiano Ag MD Oct 17, 2015 16:51
[2015-10-17] MEDS: OLANZapine 5 MG TAB GT SCH (19:50)
[2015-10-17] MEDS: ENOXAPARIN SODIUM 40 MG/0.4 ML SYRINGE SQ SCH (21:41)
[2015-10-17 23:49] LABS: POTASSIUM 4.1 MEQ/L (3.5-5.1)
[2015-10-18] VITALS (18 sets, daily range): BP systolic 106–144; BP diastolic 67–89; PULSE 72–102; RESP 18–40; TEMP 97.7–99.9; O2SAT 98–100
[2015-10-18] MEDS: INSULIN NovoLIN REGULAR SUPPLEMENTAL SCALE SQ SCH ×4 (01:53→18:14)
[2015-10-18] MEDS: RESP: ALBUTEROL 2.5 MG/IPRATROPIUM 0.5 MG NEB (SCH) NEB ×4 (03:09→21:04)
[2015-10-18] MEDS: clonazePAM 1 MG TAB PO SCH ×3 (05:41→20:18)
[2015-10-18] MEDS: CARBIDOPA/LEVODOPA 25 MG/100 MG TAB GT SCH ×3 (05:41→20:17)
[2015-10-18] MEDS: SODIUM PHOSPHATE INJ 30 MMOL in SODIUM CHLOR 0.9% 250 ML INJ 240 ML IV PRN (05:42)
[2015-10-18 05:58] LABS: AUTOMATED NEUTROPHIL # 8.5 TH/MM3 (1.8-7.7); EOSINOPHIL % 0.2 % (0.0-4.0); HEMATOCRIT 31.2 % (39.0-51.0); HEMO FLAGS DIFF FINAL; LYMPH % 8.3 % (9.0-44.0); LYMPHOCYTE # 0.8 TH/MM3 (1.0-4.8); MEAN CELL VOLUME 81.2 FL (80.0-100.0); MEAN CORPUSCULAR HEMOGLOBIN 26.3 PG (27.0-34.0); MEAN CORPUSCULAR HGB CONC 32.4 % (32.0-36.0); MONO % 6.3 % (0.0-8.0); NEUT % 85.2 % (16.0-70.0); PLATELET COUNT 186 TH/MM3 (150-450); RED BLOOD COUNT 3.85 MIL/MM3 (4.50-5.90); RED CELL DISTRIBUTION WIDTH 18.1 % (11.6-17.2); WHITE BLOOD COUNT 9.9 TH/MM3 (4.0-11.0)
[2015-10-18] MEDS: MEROPENEM INJ 1,000 MG in SODIUM CHLORIDE 0.9% INJ 100 ML IV SCH ×3 (06:12→20:18)
[2015-10-18 06:21] LABS: BICARBONATE 33.6 MEQ/L (21.0-32.0); POTASSIUM 4.1 MEQ/L (3.5-5.1)
--- NOTE | 2015-10-18 07:59 | HHI.CCPN ---
Subjective Remarks/Hospital Course 06/17: Pt is a 54 yr man with multiple medical problems including Parkinson's disease, advanced dementia, hyponatremia, anxiety, pneumonia, GERD, cognitive disorder, and multidrug resistant UTI- ESBL02/19/15 , who resides in a halfway. Pt by report was found by staff in halfway to be less alert and having respiratory difficultly and fevers. Pt was brought to ED adn placed on ventilator. His workup was inclusive of labs, chest xray and ct head and abd/pelvis. WBC 16.4, +UTI, lactic acid 4, troponin ,0.02, BUN/ cre 18/ 0.76. CT head 06/18/15: diffuse atrophy unchanged. No acute intracranial findings ct abd/ pelvis with IV contrast: 06/18/15 Conclusion: 1. Chronic nonspecific urinary bladder wall thickening. Bladder collapsed with Putnam catheter in place. 2.Chronic bilateral mid to lower zone groundglass opacity. 3. Nonobstructing left renal calculus. 4. Distended rectum Pt admitted and fluid and abx ordered. 06/18: Drowsy, easily arousable. On mechanical ventilation via tracheostomy. Tachypneic. Resting tremor noted. 06/19: Drowsy, arousable. On mechanical ventilation via tracheostomy. 06/20: Drowsy, arousable. Remains on mechanical ventilation via tracheostomy. We'll repeat blood cultures, UA and urine cultures. Fluconazole IV added in view of yeast in urine. 07/06: Reconsulted as patient return to the ventilator on a right ventricular due to tachypnea. Low-grade temperatures. Tolerating tube feeding. Extremity encephalopathic demented patient with difficult neurological examination. 07/07: Status post chest tube placement by IR for right pneumothorax 07/06. Afebrile. Tolerating tube feeds. Positive BM. Currently tachypneic on the ventilator. Does not appear to be any acute distress. 07/08: Afebrile. Tolerating tube feeding. He is comfortable currently on CPAP trials 11/10. Positive BM. 07/09: Afebrile. Tolerating tube feeding. Appears comfortable on T bar. Positive BM. 07/10: Afebrile. Eyes are open. Remained on T piece overnight. Tolerating tube feeding. 07/11: MAXIMUM TEMPERATURE 100. Currently 98.6. Eyes are open. On ACV overnight secondary to "tachypnea and sweating". Switching back to PSV trials today. Goal is T piece during daytime, CPAP at night. 07/12: No acute events overnight. On PSV 15/5 -attempt TP up to 6 hours today. No pneumothorax on chest x-ray 07/13: Placed back on full ventilator support for tachypnea. Otherwise clinically unchanged. No fever today 07/14: Patient was on T piece yesterday evening, placed back on PSV overnight, patient mechanical ventilation this morning. Patient appears to be struggling with mechanical ventilation. Patient placed back on PSV with improvement 07/15: Patient placed back on mechanical ventilation last evening due to respiratory rate. It was indicated patient was tachypnea can the 40s. Patient on mechanical ventilation this time with respiration rate mid 20s. Chest tube still in place without any output, chest x-ray still indicating resolution of pneumothorax. 07/16: Patient seen and examined today. Patient placed back on mechanical ventilation overnight due to respiratory rate. Even on mechanical ventilation patient has respiration rate in the 30s. Patient afebrile, blood pressure stable. Continue vent weaning 07/17: Patient seen and examined. Currently afebrile. Currently on CPAP 15/5 @ 40%. Patient is awake with open mouth resting in bed in no apparent acute distress. Tolerating tube feeding. 2 bowel movements. 07/18: No neurological changes. Afebrile. 2 bowel moments. Tolerating tube feeding. We'll attempt TP trials today. On CPAP since 07/15 07/19 No events overnight. On CPAP with PS: 10, PEEP: 5 and FIO2 35%. Afebrile. On no sedation. 07/20 No events overnight. Tolerating CPAP. Afebrile. 07/21: Remains on CPAP. Attempt T piece trial today. Afebrile. One bowel movement. Tolerating tube feeding. 07/22: Afebrile. Positive BM. Tolerating tube feeding. Noted switched tracheostomy to #6 Shiley cuffed fenestrated. Neurologically unchanged 07/23: Afebrile. Positive BM. Tolerating tube feeding. Questionable leak in exchange trach. Place back on a rate/ACV overnight. Insufflated seems to be doing better at the present time. Will check chest x-ray. Possible he might need #6 XLT versus replacement of chronic #8 Shiley. 07/24: Tolerating TP today, RR in low 30s patient appears comfortable. No acute events overnight 07/25: Remains off the ventilator more than 36 hours now. Intermittently tachypneic probably breathing. Chest x-ray was clear yesterday. No acute events reported overnight. PEG not functioning per RN 08/02: Patient was transferred back to critical care service due to continuing ventilator management, tachypnea. Patient clinical status with no significant change. Patient with low-grade fever 100.2, 08/03: Patient seen and examined today. No significant change in clinical status. Patient still with chronic tachypnea. Patient afebrile now. 08/04: Patient seen and examined today. No change in clinical status. Patient still continues to have chronic tachypnea. Patient afebrile. Continue vent weaning 08/05: Patient seen and examined today. Patient had chest tube removed yesterday , chest x-ray shows redevelopment of pneumothorax. Chest tube replaced. Otherwise, patient still on ventilator with tachypnea. Afebrile 08/06: Patient seen and examined today. Patient went to have chest tube placed, repeat chest x-ray did not indicate any pneumothorax. No overnight events. We' ll need to pursue LTAC placement 08/07 No events overnight. On ventilator via trach. Afebrile. 08/08 Patient tolerated CPAP x4 hrs yesterday. Afebrile. On no sedation. 08/09 No events overnight. Tolerated CPAP x 12 hrs yesterday. Afebrile. 08/10 Patient tolerated TP's x 12 hrs yesterday back on ACV overnight. 08/11 No events overnight, currently on TP's with 40% FIO2. Afebrile. 08/12 On CPAP 10/5. Tolerated Tpiece 3 hours earlier today. Afebrile. 08/13 On CPAP 10/5. Not tolerating CPAP as well over last few days and RT notes challenge with suctioning respiratory secretions adequately. Discussing with healthcare proxy regarding exchange trach to 8.0. 08/14 Nursing and RT staff having continued difficulty suctioning respiratory secretions via 6.0 tracheostomy. KAREN Garcia did not consent to stoma dilation and trach upsize yesterday but said she would call back and let me know but no return call. Contacted again today and left a message. Afebrile. On CPAP 10/5. Brow furrowing on exam, appears to be in pain but pain not localizable. Tolerating tube feeds, had BM yesterday 08/15 Not tolerating CPAP today. Contacted healthcare surrogate again and discussed need for trach change. She consented and trach was dilated and up- sized to 8.0 Distal XLT to facilitate pulmonary toilet and to address volume leak. 08/16 No events overnight. Remains on ventilator via trach. Afebrile. Tolerating TF. 08/17 No events overnight. Afebrile. 08/18 Patient tolerated CPAP x 4 hrs yesterday. Afebrile.On ventilator via trach. 08/19 On CPAP 25/06. Temp max 99.3 08/20 Stenotrophomonas in sputum, started on Levaquin per ID. Temp max 99.8. On CPAP 20/09. Tube feeds were held because PEG was clogged but now PEG is functioning. 08/21 No events overnight. Afebrile. Remains on ventilator via trach. Has been tolerating CPAP trials for last 2 days. 08/22 No events overnight. Afebrile , Has been on CPAP all night with PS: 20, PEEP; 5 and FIO2 35%. 08/23 No events overnight. Remains on CPAP, T:99.9 08/24 No events overnight. On CPAP PS 10, PEEP; 5 and FIO2 35% overnight. Afebrile. 08/25 No events overnight. Afebrile. On CPAP overnight with PS 8, PEEP: 5 and FIO2 35%, afebrile. Tolerating TF. 08/26 Tolerating Tpiece. 08/27 Tolerated Tpiece yesterday and overnight. However this evening desaturated and was placed back on CPAP. Dr. Mistry attempted to update daughter Radha Foreman and discuss his overall poor prognosis for recovery, but call got disconnected midway through call and could not reach her back 08/28 On PSV 10/5 40% today. Afebrile. 08/29 On CPAP overnight. Now on Tpiece 70% per pulmonology. Increased yellow secretions noted. Temp max 99.1 Nursing staff expresses concern that he appears uncomfortable during all nursing care. Called elsa Garcia to update , no answer, left message to call me. 08/30: On CPAP overnight. Currently on T piece at 45%. Currently afebrile. Positive BM. Tolerating tube feeding. 08/31: On CPAP overnight. Will return T piece at 35%. MAXIMUM TEMPERATURE 99.6. 5 bowel movements. Tolerating tube feeds. Neurological examination unchanged. 09/01: Tmax 99.2. Currently afebrile. Currently in TPs at 35%. 7 bowel movement overnight. Tolerating tube feeding. Subjective: 09/19: Ciarra called secondary to aspiration on Gen. medical floor. Transfer to ICU and placed on mechanical ventilation. ABG shows CO2 retention. Etc. revealed no acute cardiac 20 finds however copious message to feed suctioned from trach tube 09/20 No events overnight. Afebrile. On ACV with RR 16, TV 500, PEEP: 5 and FIO2 40%. 09/21 No events overnight. Afebrile. 09/22 No events overnight. Tolerated CPAP all day yesterday with PS 12, PEEP:5 and FIO2 35%. Afebrile. 09/23 No events overnight. On no sedation Tolerated CPAP yesterday. Had T:100.3 last night. 09/24 Patient tolerated TP's x 6 hrs yesterday On CPAP 12/5 with 35% FIO2 overnight. Afebrile. 09/25 No events overnight. On CPAP overnight and TP's during day. Tolerating tube feeds. 10/11 Reconsult: Ciarra was called as patient was found hypotensive with SBP 80' s and tube feeds coming from trach site. Patient is receiving 1L bolus NS and STAT CXR showed mild pulm edema. On arrival to ICU patient was connected to ventilator ( On ACV RR 16, TV 500, PEEP:5 and FIO2 40% with sats 95%. Current BP 125/91 , P:81 10/12 Patient remains on ventilator overnight. Borderline low BP with MAP ranges 67-72. Afebrile. On no sedation. 10/13 Patient is on ventilator via trach, afebrile, WBC trending down. Patient was hypotensive yesterday responded to fluid resuscitation not on any pressors. 10/14: No acute events overnight. WBC count has normalized. Will start SBT as tolerated. CXR in am 10/15 No acute events overnight. Phosphorus low needs replacement. Otherwise neuro exam remains unchanged. remains on CPAP 10/16 Patient remains on ventilator via trach. On no sedation. Afebrile. 10/17 No acute events overnight. On ventilator via trach. Afebrile. Objective - Vital Signs Date Time Temp Pulse Resp B/P Pulse Ox O2 Delivery O2 Flow Rate FiO2 10/18/15 07:40 100 35 10/18/15 06:00 93 10/18/15 04:00 97.7 20 108/73 10/15/15 19:00 Mechanical Ventilator 10/15/15 07:00 6.00 Intake and Output 10/17/15 10/17/15 10/18/15 08:00 16:00 00:00 Intake Total 686 ml 1007 ml 855 ml Output Total 600 ml 2200 ml 1400 ml Balance 86 ml -1193 ml -545 ml Result Diagram: 10/18/15 0453 10/18/15 0453 Other Results Laboratory Tests Test 10/17/15 10/18/15 22:42 04:53 Potassium Level 4.1 MEQ/L 4.1 MEQ/L Phosphorus Level 2.1 MG/DL 2.0 MG/DL White Blood Count 9.9 TH/MM3 Red Blood Count 3.85 MIL/MM3 Hemoglobin 10.1 GM/DL Hematocrit 31.2 % Mean Corpuscular Volume 81.2 FL Mean Corpuscular Hemoglobin 26.3 PG Mean Corpuscular Hemoglobin 32.4 % Concent Red Cell Distribution Width 18.1 % Platelet Count 186 TH/MM3 Mean Platelet Volume 9.2 FL Neutrophils (%) (Auto) 85.2 % Lymphocytes (%) (Auto) 8.3 % Monocytes (%) (Auto) 6.3 % Eosinophils (%) (Auto) 0.2 % Basophils (%) (Auto) 0.0 % Neutrophils # (Auto) 8.5 TH/MM3 Lymphocytes # (Auto) 0.8 TH/MM3 Monocytes # (Auto) 0.6 TH/MM3 Eosinophils # (Auto) 0.0 TH/MM3 Basophils # (Auto) 0.0 TH/MM3 CBC Comment DIFF FINAL Differential Comment Sodium Level 138 MEQ/L Chloride Level 99 MEQ/L Carbon Dioxide Level 33.6 MEQ/L Anion Gap 5 MEQ/L Blood Urea Nitrogen 11 MG/DL Creatinine 0.30 MG/DL Estimat Glomerular Filtration 315 ML/MIN Rate Random Glucose 131 MG/DL Calcium Level 8.7 MG/DL Magnesium Level 2.0 MG/DL Imaging Last Impressions Chest X-Ray 10/17/15 0600 Signed Impressions: Service Date/Time: Saturday, October 17, 2015 03:41 - CONCLUSION: 1. Increase in ill-defined airspace disease in the left lung over the last day. Tracheostomy unchanged. Amaury Ellsworth MD Upper Extremity Ultrasound 10/13/15 0000 Signed Impressions: Service Date/Time: Tuesday, October 13, 2015 09:51 - CONCLUSION: 1. No evidence of deep venous thrombosis. John Anderson MD Abdomen X-Ray 10/12/15 0000 Signed Impressions: Service Date/Time: Monday, October 12, 2015 17:37 - CONCLUSION: 1. Gastrostomy tube in place 2. Unremarkable bowel gas pattern. Salazar Thurman MD Renal Ultrasound 10/07/15 0000 Signed Impressions: Service Date/Time: Wednesday, October 07, 2015 18:29 - CONCLUSION: 1. No acute findings. 3.6 cm left renal cyst. Putnam catheter in bladder. Amaury Ellsworth MD Tunnelled Chest Tube Removal 08/05/15 1100 Signed Impressions: Service Date/Time: Wednesday, August 05, 2015 11:00 - CONCLUSION: Uncomplicated chest tube removal. Blaine Jackson MD Chest Tube Change 07/31/15 0000 Signed Impressions: Service Date/Time: Friday, July 31, 2015 14:34 - CONCLUSION: Uncomplicated reposition of previously placed chest tube as above. Blaine Jackson MD Chest Tube Insertion 07/30/15 0000 Signed Impressions: Service Date/Time: July 14:50 - CONCLUSION: Uncomplicated chest tube placement as above. Blaine Jackson MD Catheter Change 07/27/15 0000 Signed Impressions: Service Date/Time: Monday, July 27, 2015 14:43 - CONCLUSION: Uncomplicated gastrostomy tube exchange as above. Blaine Jackson MD Chest CT 07/11/15 0000 Signed Impressions: Service Date/Time: Saturday, July 11, 2015 09:49 - CONCLUSION: Scattered patchy densities significantly improved from previous study. Tiny anterior right basilar pneumothorax. Right-sided chest tube in good position. Néstor Matamoros MD Head CT 06/18/15 0430 Signed Impressions: Service Date/Time: June 19:31 - CONCLUSION: Diffuse atrophy unchanged. No acute intracranial findings. Kush Briscoe MD Abdomen/Pelvis CT 06/18/15 1903 Signed Impressions: Service Date/Time: , June 18, 2015 19:36 - CONCLUSION: 1. Chronic nonspecific urinary bladder wall thickening. Bladder collapsed with Putnam catheter in place. 2. Chronic bilateral mid to lower lung zone groundglass opacity. 3. Nonobstructing left renal calculus. 4. Distended rectum. Kush Briscoe MD Objective Remarks GENERAL: 54-year-old male, cachectic, debilitated with contractures on ventilator via trach. HEENT: NC/AT. PERRL. MMM. OP without erythema or exudates NECK: No JVD. Supple. 8.0 Distal XLT trach in place CARDIAC: RRR. S1/S2. No S4. No murmurs, clicks gallops or rubs. LUNGS: B/L eqal air entry with few coarse BS ABDOMEN: S/NT/ND. Positive BS EXTREMITIES: 1+ dependent pedal edema. Contractures and deformities of fingers. Stage III coccyx/sacral decubitus ulcer NEUROLOGY: Patient with significant contractures of the bilateral lower extremity, upper extremities. Eyes open spontaneously. Temporal and facial muscle wasting, muscular atrophy all extremities. Procedures 07/26- PEG replacement 07/29- right pigtail catheter placement for new pneumothorax Date of Insertion: Oct 05, 2015 A/P Assessment and Plan Neuro/Psych: Parkinson's disease Cognitive disorder not otherwise specified Chronic encephalopathy Dementia Depression Contractures On no sedation, monitor neuro status. CT head 06/18/15: - diffuse atrophy unchanged. No acute intracranial findings Continue Sinemet 25/100 q8 via PEG, Seroquel 50 mg twice a day, olanzapine 5 mg a night, Klonopin 2 mg every 8 hours, Paxil 20 daily Continue Lortab when necessary pain and fentanyl patch 50 g every 3 days for pain management. Fentanyl bolus prn breakthrough pain or if needed for turning/ nursing care/etc. Resp: Acute on chronic respiratory failure Chronic trach #8 Shiley distal XLT Pneumonia, aspiration (ESBL Klebsiella and Pseudomonas pneumonia) Right pneumothorax status post pigtail catheter 2 (resolved) Continue with vent support keep sat >90%. Ventilator bundle, pulm toilet, trach care, daily SBT Pulmonary Dr. Restrepo following. On Prednisone 60mg daily Exchanged to 8 Distal XLT on 08/15 to facilitate suctioning, trach care. Bronchodilators ( DuoNeb) Cardiac History of orthostasis History of CAD History dyslipidemia History of hypertension Continue Midodrine 5 mg BID Monitor HR and BP keep MAP>65mmHg. Lactic acid 2.4 10/11 GI: Chronic moderate protein energy malnutrition Dysphagia Status post PEG Internal hemorrhoids Gastroesophageal reflux disease - 10/11 KUB abdomen: PEG tube in place. Unremarkable bowel gas pattern. - On TF Jevity 1.5 @ 60ml/hr, on Reglan 5mg Q8 PRN for high residuals. - On Prevacid 30 mg per PEG tube daily for GERD FEN/Renal: Nonobstructing left renal calculus - Monitor renal function, I/O's. electrolytes replacement per protocol. Will need phos replacement today ID: Sepsis Aspiration pneumonia Cele UTI 10/12 BC: NGTD 10/11 BC: NGTD 10/11 Urine cx: C. Tropicalis 10/11 Sputum: ESBL Klebsiella and Pseudomonas pneumonia 10/10 Urine: C. Tropicalis 09/21 Urine cx: Pseudomonas ? colonized 09/19 Sputum cx: Pseudomonas, Kleb pneumonia ESBL pos Candiduria (cele tropicalis urine cx 08/17) ESBL positive Klebsiella/Pseudomonas pneumonia Stenotrophomonas in sputum 08/17 MRSA colonization sepsis UTI Klebsiella ESBL positive (has been treated) Continue with abx ( Merrem,, Diflucan) s/p Vanco 1gram x1 10/12, follow up on cxs and monitor for signs of infections ( Fever, WBC) ID service is following- Dr. Enoc Moss. Discontinued Micafungin 10/13. No further need for Vanc Endo: On SSI ( medium) with accuchecks Q6. Heme Normocytic Anemia - Monitor CBC MSK Bilateral lower extremity Contractures Stage III sacral decubitus present on admission - Wound care and PT on case Prophylaxis - GI - Prevacid - DVT - SCDs/ Lovenox. ACCESS: PIVs Level 3 Antonio Carr MD Oct 18, 2015 07:59
[2015-10-18] MEDS: REMOVE OLD PATCH TD SCH (08:00)
[2015-10-18] MEDS: ARTIFICIAL TEARS OPTH SOLN 15 ML BTL EACH EYE SCH ×3 (08:34→18:13)
[2015-10-18] MEDS: QUEtiapine FUMARATE 25 MG TAB G-TUBE SCH ×2 (08:36→20:17)
[2015-10-18] MEDS: predniSONE 20 MG TAB PO SCH (08:36)
[2015-10-18] MEDS: LANSOPRAZOLE SOLUTAB 30 MG TAB NG SCH (08:36)
[2015-10-18] MEDS: PARoxetine HCL 20 MG TAB G-TUBE SCH (08:36)
[2015-10-18] MEDS: GABAPENTIN 300 MG CAP G-TUBE SCH ×2 (08:36→20:17)
[2015-10-18] MEDS: LACTOBACILLUS ACIDOPHILUS TAB PO SCH ×3 (08:36→18:14)
[2015-10-18] MEDS: SODIUM CHLORIDE 0.9% FLUSH 5 ML FLUSH IVF SCH ×2 (08:37→20:17)
[2015-10-18] MEDS: MIDODRINE 5 MG TAB G-TUBE SCH ×2 (08:37→20:17)
[2015-10-18] MEDS: CHLORHEXIDINE 0.12% (ORAL KIT) 15 ML CUP MT SCH ×2 (08:37→20:16)
[2015-10-18] MEDS: FLUCONAZOLE 400 MG PREMIX BAG 200 ML IV SCH (14:17)
--- NOTE | 2015-10-18 17:34 | HHI.PR ---
Subjective Remarks 54 YOWM with ChRF,Trach, multiple uti No fever Gets anxious. No Fever Mod amount of trach secretions. Tolerates CPAP Objective Vital Signs Vital Signs Date Time Temp Pulse Resp B/P Pulse Ox O2 Delivery O2 Flow Rate FiO2 10/18/15 14:00 84 10/18/15 13:16 100 35 10/18/15 12:00 99.9 102 24 144/89 99 10/18/15 12:00 102 10/18/15 12:00 35 10/18/15 10:00 94 10/18/15 08:00 89 10/18/15 08:00 35 10/18/15 08:00 97.8 89 24 106/67 99 10/18/15 07:40 100 35 10/18/15 06:00 93 10/18/15 04:05 100 35 10/18/15 04:00 81 10/18/15 04:00 35 10/18/15 04:00 97.7 81 20 108/73 100 10/18/15 02:00 82 10/18/15 01:05 98 35 10/18/15 00:00 97.8 87 21 117/85 100 10/18/15 00:00 87 10/18/15 00:00 35 10/17/15 22:15 99 35 10/17/15 22:00 86 10/17/15 20:37 97 35 10/17/15 20:06 26 10/17/15 20:00 35 10/17/15 20:00 99.3 102 27 127/87 99 10/17/15 20:00 102 10/17/15 20:00 102 10/17/15 18:00 75 I/O 10/17/15 10/17/15 10/17/15 10/18/15 10/18/15 10/18/15 07:00 15:00 23:00 07:00 15:00 23:00 Intake Total 1982 ml 1007 ml 855 ml 623 ml 1068 ml Output Total 2500 ml 2200 ml 1400 ml 550 ml 1300 ml Balance -518 ml -1193 ml -545 ml 73 ml -232 ml IV Total 1203 ml 463 ml 392 ml 165 ml 397 ml Tube Feeding 779 ml 494 ml 403 ml 408 ml 571 ml Other 50 ml 60 ml 50 ml 100 ml Output Urine Total 2500 ml 2200 ml 1400 ml 550 ml 1300 ml # Bowel Movements 2 3 2 2 2 Result Diagram: 10/18/15 0453 10/18/15 0453 Objective Remarks GENERAL: MBMN male on Vent. SKIN: Warm and dry. HEAD: Normocephalic. EYES: No scleral icterus. No injection or drainage. NECK: Supple, trachea midline. No JVD or lymphadenopathy. has trach CARDIOVASCULAR: Regular rate and rhythm without murmurs, gallops, or rubs. RESPIRATORY: Breath sounds equal bilaterally. No accessory muscle use. GASTROINTESTINAL: Abdomen soft, non-tender, nondistended. PEG tube in place MUSCULOSKELETAL: No cyanosis, or edema. BACK: Nontender without obvious deformity. No CVA tenderness. A/P Assessment and Plan VDRF S/P Trach Parkinson's diasease Dementia Aspiration PLAN: TF Cont CPAP Abx Per ID ACV prn sob Severiano Ag MD Oct 18, 2015 17:34
[2015-10-18] MEDS: COLLAGENASE OINT 30 GM TUBE TOP SCH (18:15)
[2015-10-18] MEDS: OLANZapine 5 MG TAB GT SCH (20:17)
[2015-10-18] MEDS: ENOXAPARIN SODIUM 40 MG/0.4 ML SYRINGE SQ SCH (20:18)
[2015-10-19] VITALS (19 sets, daily range): BP systolic 95–136; BP diastolic 68–88; PULSE 61–91; RESP 18–25; TEMP 97.3–98.3; O2SAT 99–100
[2015-10-19] MEDS: MORPHINE SULFATE 4 MG/ML INJ IV PUSH PRN (00:34)
[2015-10-19] MEDS: RESP: ALBUTEROL 2.5 MG/IPRATROPIUM 0.5 MG NEB (SCH) NEB ×4 (03:39→20:17)
[2015-10-19] MEDS: MEROPENEM INJ 1,000 MG in SODIUM CHLORIDE 0.9% INJ 100 ML IV SCH ×3 (04:55→21:41)
[2015-10-19] MEDS: CARBIDOPA/LEVODOPA 25 MG/100 MG TAB GT SCH ×3 (04:56→21:41)
[2015-10-19] MEDS: clonazePAM 1 MG TAB PO SCH ×3 (04:56→21:40)
[2015-10-19] MEDS: INSULIN NovoLIN REGULAR SUPPLEMENTAL SCALE SQ SCH ×4 (06:00→17:56)
[2015-10-19 07:34] LABS: AUTOMATED NEUTROPHIL # 9.5 TH/MM3 (1.8-7.7); BASOPHIL % 0.1 % (0.0-2.0); EOSINOPHIL % 0.3 % (0.0-4.0); HEMATOCRIT 31.9 % (39.0-51.0); HEMO FLAGS DIFF FINAL; LYMPH % 7.2 % (9.0-44.0); LYMPHOCYTE # 0.8 TH/MM3 (1.0-4.8); MEAN CELL VOLUME 82.3 FL (80.0-100.0); MEAN CORPUSCULAR HEMOGLOBIN 26.3 PG (27.0-34.0); MEAN CORPUSCULAR HGB CONC 31.9 % (32.0-36.0); MONO % 6.3 % (0.0-8.0); NEUT % 86.1 % (16.0-70.0); PLATELET COUNT 199 TH/MM3 (150-450); RED BLOOD COUNT 3.87 MIL/MM3 (4.50-5.90); RED CELL DISTRIBUTION WIDTH 17.9 % (11.6-17.2)
[2015-10-19 07:52] LABS: BICARBONATE 31.7 MEQ/L (21.0-32.0); POTASSIUM 3.8 MEQ/L (3.5-5.1)
[2015-10-19] MEDS: MIDODRINE 5 MG TAB G-TUBE SCH ×2 (08:38→21:41)
[2015-10-19] MEDS: QUEtiapine FUMARATE 25 MG TAB G-TUBE SCH ×2 (08:39→21:41)
[2015-10-19] MEDS: predniSONE 20 MG TAB PO SCH (08:39)
[2015-10-19] MEDS: PARoxetine HCL 20 MG TAB G-TUBE SCH (08:39)
[2015-10-19] MEDS: LANSOPRAZOLE SOLUTAB 30 MG TAB NG SCH (08:39)
[2015-10-19] MEDS: SODIUM CHLORIDE 0.9% FLUSH 5 ML FLUSH IVF PRN (08:39)
[2015-10-19] MEDS: SODIUM CHLORIDE 0.9% FLUSH 5 ML FLUSH IVF SCH ×2 (08:39→21:42)
[2015-10-19] MEDS: GABAPENTIN 300 MG CAP G-TUBE SCH ×2 (08:39→21:40)
[2015-10-19] MEDS: LACTOBACILLUS ACIDOPHILUS TAB PO SCH ×3 (08:39→17:54)
[2015-10-19] MEDS: CHLORHEXIDINE 0.12% (ORAL KIT) 15 ML CUP MT SCH ×2 (08:40→21:40)
[2015-10-19] MEDS: ARTIFICIAL TEARS OPTH SOLN 15 ML BTL EACH EYE SCH ×3 (08:41→17:54)
[2015-10-19] MEDS: COLLAGENASE OINT 30 GM TUBE TOP SCH (08:41)
--- NOTE | 2015-10-19 11:28 | HHI.CCPN ---
Subjective Remarks/Hospital Course 06/17: Pt is a 54 yr man with multiple medical problems including Parkinson's disease, advanced dementia, hyponatremia, anxiety, pneumonia, GERD, cognitive disorder, and multidrug resistant UTI- ESBL02/19/15 , who resides in a senior care. Pt by report was found by staff in senior care to be less alert and having respiratory difficultly and fevers. Pt was brought to ED adn placed on ventilator. His workup was inclusive of labs, chest xray and ct head and abd/pelvis. WBC 16.4, +UTI, lactic acid 4, troponin ,0.02, BUN/ cre 18/ 0.76. CT head 06/18/15: diffuse atrophy unchanged. No acute intracranial findings ct abd/ pelvis with IV contrast: 06/18/15 Conclusion: 1. Chronic nonspecific urinary bladder wall thickening. Bladder collapsed with Putnam catheter in place. 2.Chronic bilateral mid to lower zone groundglass opacity. 3. Nonobstructing left renal calculus. 4. Distended rectum Pt admitted and fluid and abx ordered. 06/18: Drowsy, easily arousable. On mechanical ventilation via tracheostomy. Tachypneic. Resting tremor noted. 06/19: Drowsy, arousable. On mechanical ventilation via tracheostomy. 06/20: Drowsy, arousable. Remains on mechanical ventilation via tracheostomy. We'll repeat blood cultures, UA and urine cultures. Fluconazole IV added in view of yeast in urine. 07/06: Reconsulted as patient return to the ventilator on a right ventricular due to tachypnea. Low-grade temperatures. Tolerating tube feeding. Extremity encephalopathic demented patient with difficult neurological examination. 07/07: Status post chest tube placement by IR for right pneumothorax 07/06. Afebrile. Tolerating tube feeds. Positive BM. Currently tachypneic on the ventilator. Does not appear to be any acute distress. 07/08: Afebrile. Tolerating tube feeding. He is comfortable currently on CPAP trials 11/10. Positive BM. 07/09: Afebrile. Tolerating tube feeding. Appears comfortable on T bar. Positive BM. 07/10: Afebrile. Eyes are open. Remained on T piece overnight. Tolerating tube feeding. 07/11: MAXIMUM TEMPERATURE 100. Currently 98.6. Eyes are open. On ACV overnight secondary to "tachypnea and sweating". Switching back to PSV trials today. Goal is T piece during daytime, CPAP at night. 07/12: No acute events overnight. On PSV 15/5 -attempt TP up to 6 hours today. No pneumothorax on chest x-ray 07/13: Placed back on full ventilator support for tachypnea. Otherwise clinically unchanged. No fever today 07/14: Patient was on T piece yesterday evening, placed back on PSV overnight, patient mechanical ventilation this morning. Patient appears to be struggling with mechanical ventilation. Patient placed back on PSV with improvement 07/15: Patient placed back on mechanical ventilation last evening due to respiratory rate. It was indicated patient was tachypnea can the 40s. Patient on mechanical ventilation this time with respiration rate mid 20s. Chest tube still in place without any output, chest x-ray still indicating resolution of pneumothorax. 07/16: Patient seen and examined today. Patient placed back on mechanical ventilation overnight due to respiratory rate. Even on mechanical ventilation patient has respiration rate in the 30s. Patient afebrile, blood pressure stable. Continue vent weaning 07/17: Patient seen and examined. Currently afebrile. Currently on CPAP 15/5 @ 40%. Patient is awake with open mouth resting in bed in no apparent acute distress. Tolerating tube feeding. 2 bowel movements. 07/18: No neurological changes. Afebrile. 2 bowel moments. Tolerating tube feeding. We'll attempt TP trials today. On CPAP since 07/15 07/19 No events overnight. On CPAP with PS: 10, PEEP: 5 and FIO2 35%. Afebrile. On no sedation. 07/20 No events overnight. Tolerating CPAP. Afebrile. 07/21: Remains on CPAP. Attempt T piece trial today. Afebrile. One bowel movement. Tolerating tube feeding. 07/22: Afebrile. Positive BM. Tolerating tube feeding. Noted switched tracheostomy to #6 Shiley cuffed fenestrated. Neurologically unchanged 07/23: Afebrile. Positive BM. Tolerating tube feeding. Questionable leak in exchange trach. Place back on a rate/ACV overnight. Insufflated seems to be doing better at the present time. Will check chest x-ray. Possible he might need #6 XLT versus replacement of chronic #8 Shiley. 07/24: Tolerating TP today, RR in low 30s patient appears comfortable. No acute events overnight 07/25: Remains off the ventilator more than 36 hours now. Intermittently tachypneic probably breathing. Chest x-ray was clear yesterday. No acute events reported overnight. PEG not functioning per RN 08/02: Patient was transferred back to critical care service due to continuing ventilator management, tachypnea. Patient clinical status with no significant change. Patient with low-grade fever 100.2, 08/03: Patient seen and examined today. No significant change in clinical status. Patient still with chronic tachypnea. Patient afebrile now. 08/04: Patient seen and examined today. No change in clinical status. Patient still continues to have chronic tachypnea. Patient afebrile. Continue vent weaning 08/05: Patient seen and examined today. Patient had chest tube removed yesterday , chest x-ray shows redevelopment of pneumothorax. Chest tube replaced. Otherwise, patient still on ventilator with tachypnea. Afebrile 08/06: Patient seen and examined today. Patient went to have chest tube placed, repeat chest x-ray did not indicate any pneumothorax. No overnight events. We' ll need to pursue LTAC placement 08/07 No events overnight. On ventilator via trach. Afebrile. 08/08 Patient tolerated CPAP x4 hrs yesterday. Afebrile. On no sedation. 08/09 No events overnight. Tolerated CPAP x 12 hrs yesterday. Afebrile. 08/10 Patient tolerated TP's x 12 hrs yesterday back on ACV overnight. 08/11 No events overnight, currently on TP's with 40% FIO2. Afebrile. 08/12 On CPAP 10/5. Tolerated Tpiece 3 hours earlier today. Afebrile. 08/13 On CPAP 10/5. Not tolerating CPAP as well over last few days and RT notes challenge with suctioning respiratory secretions adequately. Discussing with healthcare proxy regarding exchange trach to 8.0. 08/14 Nursing and RT staff having continued difficulty suctioning respiratory secretions via 6.0 tracheostomy. KAREN Garcia did not consent to stoma dilation and trach upsize yesterday but said she would call back and let me know but no return call. Contacted again today and left a message. Afebrile. On CPAP 10/5. Brow furrowing on exam, appears to be in pain but pain not localizable. Tolerating tube feeds, had BM yesterday 08/15 Not tolerating CPAP today. Contacted healthcare surrogate again and discussed need for trach change. She consented and trach was dilated and up- sized to 8.0 Distal XLT to facilitate pulmonary toilet and to address volume leak. 08/16 No events overnight. Remains on ventilator via trach. Afebrile. Tolerating TF. 08/17 No events overnight. Afebrile. 08/18 Patient tolerated CPAP x 4 hrs yesterday. Afebrile.On ventilator via trach. 08/19 On CPAP 25/06. Temp max 99.3 08/20 Stenotrophomonas in sputum, started on Levaquin per ID. Temp max 99.8. On CPAP 20/09. Tube feeds were held because PEG was clogged but now PEG is functioning. 08/21 No events overnight. Afebrile. Remains on ventilator via trach. Has been tolerating CPAP trials for last 2 days. 08/22 No events overnight. Afebrile , Has been on CPAP all night with PS: 20, PEEP; 5 and FIO2 35%. 08/23 No events overnight. Remains on CPAP, T:99.9 08/24 No events overnight. On CPAP PS 10, PEEP; 5 and FIO2 35% overnight. Afebrile. 08/25 No events overnight. Afebrile. On CPAP overnight with PS 8, PEEP: 5 and FIO2 35%, afebrile. Tolerating TF. 08/26 Tolerating Tpiece. 08/27 Tolerated Tpiece yesterday and overnight. However this evening desaturated and was placed back on CPAP. Dr. Mistry attempted to update daughter Radha Foreman and discuss his overall poor prognosis for recovery, but call got disconnected midway through call and could not reach her back 08/28 On PSV 10/5 40% today. Afebrile. 08/29 On CPAP overnight. Now on Tpiece 70% per pulmonology. Increased yellow secretions noted. Temp max 99.1 Nursing staff expresses concern that he appears uncomfortable during all nursing care. Called elsa Garcia to update , no answer, left message to call me. 08/30: On CPAP overnight. Currently on T piece at 45%. Currently afebrile. Positive BM. Tolerating tube feeding. 08/31: On CPAP overnight. Will return T piece at 35%. MAXIMUM TEMPERATURE 99.6. 5 bowel movements. Tolerating tube feeds. Neurological examination unchanged. 09/01: Tmax 99.2. Currently afebrile. Currently in TPs at 35%. 7 bowel movement overnight. Tolerating tube feeding. Subjective: 09/19: Ciarra called secondary to aspiration on Gen. medical floor. Transfer to ICU and placed on mechanical ventilation. ABG shows CO2 retention. Etc. revealed no acute cardiac 20 finds however copious message to feed suctioned from trach tube 09/20 No events overnight. Afebrile. On ACV with RR 16, TV 500, PEEP: 5 and FIO2 40%. 09/21 No events overnight. Afebrile. 09/22 No events overnight. Tolerated CPAP all day yesterday with PS 12, PEEP:5 and FIO2 35%. Afebrile. 09/23 No events overnight. On no sedation Tolerated CPAP yesterday. Had T:100.3 last night. 09/24 Patient tolerated TP's x 6 hrs yesterday On CPAP 12/5 with 35% FIO2 overnight. Afebrile. 09/25 No events overnight. On CPAP overnight and TP's during day. Tolerating tube feeds. 10/11 Reconsult: Ciarra was called as patient was found hypotensive with SBP 80' s and tube feeds coming from trach site. Patient is receiving 1L bolus NS and STAT CXR showed mild pulm edema. On arrival to ICU patient was connected to ventilator ( On ACV RR 16, TV 500, PEEP:5 and FIO2 40% with sats 95%. Current BP 125/91 , P:81 10/12 Patient remains on ventilator overnight. Borderline low BP with MAP ranges 67-72. Afebrile. On no sedation. 10/13 Patient is on ventilator via trach, afebrile, WBC trending down. Patient was hypotensive yesterday responded to fluid resuscitation not on any pressors. 10/14: No acute events overnight. WBC count has normalized. Will start SBT as tolerated. CXR in am 10/15 No acute events overnight. Phosphorus low needs replacement. Otherwise neuro exam remains unchanged. remains on CPAP 10/16 Patient remains on ventilator via trach. On no sedation. Afebrile. 10/17 No acute events overnight. On ventilator via trach. Afebrile. 10/18 Tolerates CPAP, but unable to wean further. Otherwise no acute events overnight, remains afebrile Objective - Vital Signs Date Time Temp Pulse Resp B/P Pulse Ox O2 Delivery O2 Flow Rate FiO2 10/19/15 09:38 100 35 10/19/15 06:00 80 10/19/15 04:00 97.7 25 101/68 10/15/15 19:00 Mechanical Ventilator 10/15/15 07:00 6.00 Intake and Output 10/18/15 10/18/15 10/19/15 08:00 16:00 00:00 Intake Total 623 ml 1068 ml 745 ml Output Total 550 ml 1300 ml 850 ml Balance 73 ml -232 ml -105 ml Result Diagram: 10/19/1518 10/19/15617 Other Results Laboratory Tests Test 10/17/15 10/18/15 22:42 04:53 Potassium Level 4.1 MEQ/L 4.1 MEQ/L Phosphorus Level 2.1 MG/DL 2.0 MG/DL White Blood Count 9.9 TH/MM3 Red Blood Count 3.85 MIL/MM3 Hemoglobin 10.1 GM/DL Hematocrit 31.2 % Mean Corpuscular Volume 81.2 FL Mean Corpuscular Hemoglobin 26.3 PG Mean Corpuscular Hemoglobin 32.4 % Concent Red Cell Distribution Width 18.1 % Platelet Count 186 TH/MM3 Mean Platelet Volume 9.2 FL Neutrophils (%) (Auto) 85.2 % Lymphocytes (%) (Auto) 8.3 % Monocytes (%) (Auto) 6.3 % Eosinophils (%) (Auto) 0.2 % Basophils (%) (Auto) 0.0 % Neutrophils # (Auto) 8.5 TH/MM3 Lymphocytes # (Auto) 0.8 TH/MM3 Monocytes # (Auto) 0.6 TH/MM3 Eosinophils # (Auto) 0.0 TH/MM3 Basophils # (Auto) 0.0 TH/MM3 CBC Comment DIFF FINAL Differential Comment Sodium Level 138 MEQ/L Chloride Level 99 MEQ/L Carbon Dioxide Level 33.6 MEQ/L Anion Gap 5 MEQ/L Blood Urea Nitrogen 11 MG/DL Creatinine 0.30 MG/DL Estimat Glomerular Filtration 315 ML/MIN Rate Random Glucose 131 MG/DL Calcium Level 8.7 MG/DL Magnesium Level 2.0 MG/DL Imaging Last Impressions Chest X-Ray 10/17/15 0600 Signed Impressions: Service Date/Time: Saturday, October 17, 2015 03:41 - CONCLUSION: 1. Increase in ill-defined airspace disease in the left lung over the last day. Tracheostomy unchanged. Amaury Ellsworth MD Upper Extremity Ultrasound 10/13/15 0000 Signed Impressions: Service Date/Time: Tuesday, October 13, 2015 09:51 - CONCLUSION: 1. No evidence of deep venous thrombosis. John Anderson MD Abdomen X-Ray 10/12/15 0000 Signed Impressions: Service Date/Time: Monday, October 12, 2015 17:37 - CONCLUSION: 1. Gastrostomy tube in place 2. Unremarkable bowel gas pattern. Salazar Thurman MD Renal Ultrasound 10/07/15 0000 Signed Impressions: Service Date/Time: Wednesday, October 07, 2015 18:29 - CONCLUSION: 1. No acute findings. 3.6 cm left renal cyst. Putnam catheter in bladder. Amaury Ellsworth MD Tunnelled Chest Tube Removal 08/05/15 1100 Signed Impressions: Service Date/Time: Wednesday, August 05, 2015 11:00 - CONCLUSION: Uncomplicated chest tube removal. Blaine Jackson MD Chest Tube Change 07/31/15 0000 Signed Impressions: Service Date/Time: Friday, July 31, 2015 14:34 - CONCLUSION: Uncomplicated reposition of previously placed chest tube as above. Blaine Jackson MD Chest Tube Insertion 07/30/15 0000 Signed Impressions: Service Date/Time: July 14:50 - CONCLUSION: Uncomplicated chest tube placement as above. Blaine Jackson MD Catheter Change 07/27/15 0000 Signed Impressions: Service Date/Time: Monday, July 27, 2015 14:43 - CONCLUSION: Uncomplicated gastrostomy tube exchange as above. Blaine Jackson MD Chest CT 07/11/15 0000 Signed Impressions: Service Date/Time: Saturday, July 11, 2015 09:49 - CONCLUSION: Scattered patchy densities significantly improved from previous study. Tiny anterior right basilar pneumothorax. Right-sided chest tube in good position. Néstor Matamoros MD Head CT 06/18/15 1902 Signed Impressions: Service Date/Time: June 19:31 - CONCLUSION: Diffuse atrophy unchanged. No acute intracranial findings. Kush Briscoe MD Abdomen/Pelvis CT 06/18/151902 Signed Impressions: Service Date/Time: June 19:36 - CONCLUSION: 1. Chronic nonspecific urinary bladder wall thickening. Bladder collapsed with Putnam catheter in place. 2. Chronic bilateral mid to lower lung zone groundglass opacity. 3. Nonobstructing left renal calculus. 4. Distended rectum. Kush Briscoe MD Objective Remarks GENERAL: 54-year-old male, cachectic, debilitated with contractures on ventilator via trach. HEENT: NC/AT. PERRL. MMM. OP without erythema or exudates NECK: No JVD. Supple. 8.0 Distal XLT trach in place CARDIAC: RRR. S1/S2. No S4. No murmurs, clicks gallops or rubs. LUNGS: B/L eqal air entry with few coarse BS ABDOMEN: S/NT/ND. Positive BS EXTREMITIES: 1+ dependent pedal edema. Contractures and deformities of fingers. Stage III coccyx/sacral decubitus ulcer NEUROLOGY: Patient with significant contractures of the bilateral lower extremity, upper extremities. Eyes open spontaneously. Temporal and facial muscle wasting, muscular atrophy all extremities. Procedures 07/26- PEG replacement 07/29- right pigtail catheter placement for new pneumothorax Date of Insertion: Oct 05, 2015 A/P Assessment and Plan Neuro/Psych: Parkinson's disease Cognitive disorder not otherwise specified Chronic encephalopathy Dementia Depression Contractures On no sedation, monitor neuro status. CT head 06/18/15: - diffuse atrophy unchanged. No acute intracranial findings Continue Sinemet 25/100 q8 via PEG, Seroquel 50 mg twice a day, olanzapine 5 mg a night, Klonopin 2 mg every 8 hours, Paxil 20 daily Continue Lortab when necessary pain and fentanyl patch 50 g every 3 days for pain management. Fentanyl bolus prn breakthrough pain or if needed for turning/ nursing care/etc. Resp: Acute on chronic respiratory failure Chronic trach #8 Shiley distal XLT Pneumonia, aspiration (ESBL Klebsiella and Pseudomonas pneumonia) Right pneumothorax status post pigtail catheter 2 (resolved) Continue with vent support keep sat >90%. Ventilator bundle, pulm toilet, trach care, daily SBT, TP if patient tolerates Pulmonary Dr. Restrepo following. On Prednisone 60mg daily Exchanged to 8 Distal XLT on 08/15 to facilitate suctioning, trach care. Bronchodilators ( DuoNeb) Repeat CXR today Cardiac History of orthostasis History of CAD History dyslipidemia History of hypertension Continue Midodrine 5 mg BID Monitor HR and BP keep MAP>65mmHg. GI: Chronic moderate protein energy malnutrition Dysphagia Status post PEG Internal hemorrhoids Gastroesophageal reflux disease - On TF Jevity 1.5 @ 60ml/hr, on Reglan 5mg Q8 PRN for high residuals. - On Prevacid 30 mg per PEG tube daily for GERD - 10/11 KUB abdomen: PEG tube in place. Unremarkable bowel gas pattern. FEN/Renal: Nonobstructing left renal calculus - Monitor renal function, I/O's. electrolytes replacement per protocol. Will need phos replacement today ID: Sepsis Aspiration pneumonia Cele UTI 10/12 BC: NGTD 10/11 BC: NGTD 10/11 Urine cx: C. Tropicalis 10/11 Sputum: ESBL Klebsiella and Pseudomonas pneumonia 10/10 Urine: C. Tropicalis 09/21 Urine cx: Pseudomonas ? colonized 09/19 Sputum cx: Pseudomonas, Kleb pneumonia ESBL pos Candiduria (cele tropicalis urine cx 08/17) ESBL positive Klebsiella/Pseudomonas pneumonia Stenotrophomonas in sputum 08/17 MRSA colonization sepsis UTI Klebsiella ESBL positive (has been treated) Continue with abx ( Merrem,, Diflucan) s/p Vanco 1gram x1 10/12, follow up on cxs and monitor for signs of infections ( Fever, WBC) ID service is following- Dr. Enoc Moss. Discontinued Micafungin 10/13. No further need for Vanc Endo: On SSI ( medium) with accuchecks Q6. Heme Normocytic Anemia - Monitor CBC MSK Bilateral lower extremity Contractures Stage III sacral decubitus present on admission - Wound care and PT on case Prophylaxis - GI - Prevacid - DVT - SCDs/ Lovenox. ACCESS: PIVs Level 3 Hilario Kern MD Oct 19, 2015 11:28
[2015-10-19] MEDS ORDERED: BUMETANIDE INJ 1 MG/4 ML VIAL IV PUSH ONE (12:00)
[2015-10-19] MEDS: FLUCONAZOLE 400 MG PREMIX BAG 200 ML IV SCH (12:38)
--- NOTE | 2015-10-19 13:43 | RADRPT ---
EXAM DATE/TIME: 10/19/2015 12:15 [facility] COMPARISON: CHEST SINGLE AP, October 12, 2015, 16:24. CHEST SINGLE AP, October 16, 2015, 4:25. CHEST SINGLE AP, October 17, 2015, 3:41. INDICATIONS : Evaluate for respiratory disease. MEDICAL HISTORY : Hypercholesterolemia. Cardiovascular disease. Diabetes mellitus type II. GERD. CAD. HTN. SURGICAL HISTORY : Tracheostomy. ENCOUNTER: Subsequent ACUITY: 2 weeks PAIN SCORE: Non-responsive. LOCATION: chest FINDINGS: A single view of the chest demonstrates the lungs to be symmetrically aerated without evidence of mas s, infiltrate or effusion. There is a nipple shadow projected over the right lower lung. Otherwise, no significant changes are seen compared to the prior studies. The tracheostomy tube remains in place . There is no evidence of pneumothorax. The cardiomediastinal contours are unremarkable. Osseous str uctures are intact. CONCLUSION: No acute pulmonary infiltrates. Ilir Agosto MD on October 19, 2015 at 13:38 Board Certified Radiologist. This report was verified electronically.
--- NOTE | 2015-10-19 14:56 | HHI.IDPN ---
Subjective Subjective Remarks Chart reviewed. Patient known to me. ID was reconsulted few days back from abnormal UA (not treated). Now reconsulted for overnight events that are new indicative of new infectious process. Was on [facility] and transferred as a [facility] due to being found on the floor, hypotensive and obvious aspiration of tube feed contents s/o aspiration. Overnight events reviewed. Temps ok. Bp better. Urine output better. resp secretions small, mehta to clear at times. No rash No diarrhea Antibiotics Meropenem IV Diflucan Lines Peripheral IV with no e/o infection Past Medical History reviewed Allergies: Coded Allergies: *MDRO Multi-Drug Resistant Organism (Verified Adverse Reaction, Unknown, ) ESBL E. coli (urine) - 02/19/2015; ESBL K. 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 Vital Signs Date Time Temp Pulse Resp B/P Pulse Ox O2 Delivery O2 Flow Rate FiO2 10/19/15 14:10 100 35 10/19/15 14:00 88 10/19/15 12:10 99 35 10/19/15 12:00 61 10/19/15 12:00 35 10/19/15 12:00 97.9 61 18 136/88 100 10/19/15 10:00 73 10/19/15 09:38 100 35 10/19/15 09:38 35 10/19/15 08:00 35 10/19/15 08:00 75 10/19/15 08:00 98.0 75 21 111/68 100 10/19/15 06:00 80 10/19/15 04:00 97.7 86 25 101/68 100 10/19/15 04:00 35 10/19/15 04:00 86 10/19/15 03:39 100 35 10/19/15 02:00 75 10/19/15 00:39 22 10/19/15 00:00 35 10/19/15 00:00 87 10/19/15 00:00 98.3 87 22 128/86 100 10/18/15 22:00 86 10/18/15 22:00 100 35 10/18/15 20:00 98.0 80 18 119/82 100 10/18/15 20:00 35 10/18/15 20:00 80 10/18/15 19:35 100 35 10/18/15 18:41 100 35 10/18/15 18:00 72 10/18/15 16:00 76 10/18/15 16:00 97.9 76 40 124/83 100 10/18/15 16:00 35 10/18/15 10/18/15 10/19/15 15:00 23:00 07:00 Intake Total 1068 ml 745 ml 506 ml Output Total 1300 ml 850 ml 500 ml Balance -232 ml -105 ml 6 ml IV Total 397 ml 376 ml 266 ml Tube Feeding 571 ml 309 ml 240 ml Other 100 ml 60 ml Output Urine Total 1300 ml 850 ml 500 ml # Bowel Movements 2 2 2 . Laboratory Tests Test 10/18/15 10/19/15 04:53 06:18 White Blood Count 9.9 TH/MM3 11.0 TH/MM3 Red Blood Count 3.85 MIL/MM3 3.87 MIL/MM3 Hemoglobin 10.1 GM/DL 10.2 GM/DL Hematocrit 31.2 % 31.9 % Mean Corpuscular Volume 81.2 FL 82.3 FL Mean Corpuscular Hemoglobin 26.3 PG 26.3 PG Mean Corpuscular Hemoglobin 32.4 % 31.9 % Concent Red Cell Distribution Width 18.1 % 17.9 % Platelet Count 186 TH/MM3 199 TH/MM3 Mean Platelet Volume 9.2 FL 9.6 FL Neutrophils (%) (Auto) 85.2 % 86.1 % Lymphocytes (%) (Auto) 8.3 % 7.2 % Monocytes (%) (Auto) 6.3 % 6.3 % Eosinophils (%) (Auto) 0.2 % 0.3 % Basophils (%) (Auto) 0.0 % 0.1 % Neutrophils # (Auto) 8.5 TH/MM3 9.5 TH/MM3 Lymphocytes # (Auto) 0.8 TH/MM3 0.8 TH/MM3 Monocytes # (Auto) 0.6 TH/MM3 0.7 TH/MM3 Eosinophils # (Auto) 0.0 TH/MM3 0.0 TH/MM3 Basophils # (Auto) 0.0 TH/MM3 0.0 TH/MM3 CBC Comment DIFF FINAL DIFF FINAL Differential Comment Laboratory Tests Test 10/17/15 10/18/15 10/19/15 22:42 04:53 06:18 Potassium Level 4.1 MEQ/L 4.1 MEQ/L 3.8 MEQ/L Phosphorus Level 2.1 MG/DL 2.0 MG/DL 1.9 MG/DL Sodium Level 138 MEQ/L 138 MEQ/L Chloride Level 99 MEQ/L 100 MEQ/L Carbon Dioxide Level 33.6 MEQ/L 31.7 MEQ/L Anion Gap 5 MEQ/L 6 MEQ/L Blood Urea Nitrogen 11 MG/DL 16 MG/DL Creatinine 0.30 MG/DL 0.33 MG/DL Estimat Glomerular Filtration 315 ML/MIN 282 ML/MIN Rate Random Glucose 131 MG/DL 141 MG/DL Calcium Level 8.7 MG/DL 8.5 MG/DL Magnesium Level 2.0 MG/DL Imaging Chest X-Ray 10/05/15 0000 Signed Impressions: Service Date/Time: Monday, October 05, 2015 19:56 - CONCLUSION: Hyperinflation with no acute cardiopulmonary process. Scott Goode MD Chest X-Ray 09/25/15 0000 Signed Impressions: Service Date/Time: Friday, September 25, 2015 09:28 - CONCLUSION: No acute disease. Tai Taylor Jr., MD Abdomen X-Ray 09/21/15 0000 Signed Impressions: Service Date/Time: Monday, September 21, 2015 11:31 - CONCLUSION: Normal bowel gas pattern. Tai Taylor Jr., MD Tunnelled Chest Tube Removal 08/05/15 1100 Signed Impressions: Service Date/Time: Wednesday, August 05, 2015 11:00 - CONCLUSION: Uncomplicated chest tube removal. Blaine Jackson MD Chest Tube Change 07/31/15 0000 Signed Impressions: Service Date/Time: Friday, July 31, 2015 14:34 - CONCLUSION: Uncomplicated reposition of previously placed chest tube as above. Blaine Jackson MD Chest Tube Insertion 07/30/15 0000 Signed Impressions: Service Date/Time: July 14:50 - CONCLUSION: Uncomplicated chest tube placement as above. Blaine Jackson MD Catheter Change 07/27/15 0000 Signed Impressions: Service Date/Time: Monday, July 27, 2015 14:43 - CONCLUSION: Uncomplicated gastrostomy tube exchange as above. Blaine Jackson MD Chest CT 07/11/15 0000 Signed Impressions: Service Date/Time: Saturday, July 11, 2015 09:49 - CONCLUSION: Scattered patchy densities significantly improved from previous study. Tiny anterior right basilar pneumothorax. Right-sided chest tube in good position. Néstor Matamoros MD Head CT 06/18/151902 Signed Impressions: Service Date/Time: June 19:31 - CONCLUSION: Diffuse atrophy unchanged. No acute intracranial findings. Kush Briscoe MD Abdomen/Pelvis CT 06/18/151902 Signed Impressions: Service Date/Time: June 19:36 - CONCLUSION: 1. Chronic nonspecific urinary bladder wall thickening. Bladder collapsed with Putnam catheter in place. 2. Chronic bilateral mid to lower lung zone groundglass opacity. 3. Nonobstructing left renal calculus. 4. Distended rectum. Kush Briscoe MD Physical Exam GENERAL: eyes closed, No interaction SKIN: No generalized rash. Cool and dry. HEENT: [place] conjunctivae, no icterus, moist mucosa NECK: Trach site looks ok. RESPIRATORY: decreased at the bases. GASTROINTESTINAL: Abdomen soft, non-tender, not distended. No hepatosplenomegaly PEG tube site clean, no evidence of infection. MUSCULOSKELETAL: No cyanosis No pedal edema. Contracted all 4 extremities. NEUROLOGICAL: Keeping his eyes closed, contractures of the extremities, no interaction. Peripheral IV line sites with no evidence of infection. ; Putnam in place, urine looks clear Assessment & Plan Remarks Aspiration PNA in Health care setting. History of PSAE ESBL cath associated UTI. S/P Rx Leukocytosis, resolved Chronic respiratory failure on trach PSAE and ESBL Kleb in sputum in recent past. Chronic encephalopathy with underlying diagnosis of advanced dementia as well as advanced Parkinson's disease. Status post trach Status post gastrostomy tube with no evidence of infection. Stage II sacral decubitus ulcer present on admission. Recommendations Continue Meropenem IV (ASP documentation: MDRO ESBL and PSAE in sputum) (stop date:10/23/2015) DC Diflucan Code: DNR but aggressive medical management. Case dw RN Will sign off please call back if any change in clinical condition or questions. Trina Moss MD Oct 19, 2015 14:56
--- NOTE | 2015-10-19 19:10 | HHI.PR ---
Subjective Remarks 54 YOWM with ChRF,Trach, multiple uti No fever Gets anxious. No Fever Mod amount of trach secretions. Became techypnoic, put back on ACV Objective Vital Signs Vital Signs Date Time Temp Pulse Resp B/P Pulse Ox O2 Delivery O2 Flow Rate FiO2 10/19/15 18:00 85 10/19/15 16:14 100 35 10/19/15 16:00 98.1 87 23 99/72 100 10/19/15 16:00 35 10/19/15 16:00 87 10/19/15 14:10 100 35 10/19/15 14:00 88 10/19/15 12:10 99 35 10/19/15 12:00 61 10/19/15 12:00 35 10/19/15 12:00 97.9 61 18 136/88 100 10/19/15 10:00 73 10/19/15 09:38 100 35 10/19/15 09:38 35 10/19/15 08:00 35 10/19/15 08:00 75 10/19/15 08:00 98.0 75 21 111/68 100 10/19/15 06:00 80 10/19/15 04:00 97.7 86 25 101/68 100 10/19/15 04:00 35 10/19/15 04:00 86 10/19/15 03:39 100 35 10/19/15 02:00 75 10/19/15 00:39 22 10/19/15 00:00 35 10/19/15 00:00 87 10/19/15 00:00 98.3 87 22 128/86 100 10/18/15 22:00 86 10/18/15 22:00 100 35 10/18/15 20:00 98.0 80 18 119/82 100 10/18/15 20:00 35 10/18/15 20:00 80 10/18/15 19:35 100 35 I/O 10/18/15 10/18/15 10/18/15 10/19/15 10/19/15 10/19/15 06:59 14:59 22:59 06:59 14:59 22:59 Intake Total 623 ml 1068 ml 745 ml 506 ml 360 ml Output Total 550 ml 1300 ml 850 ml 500 ml 2275 ml Balance 73 ml -232 ml -105 ml 6 ml -1915 ml IV Total 165 ml 397 ml 376 ml 266 ml 60 ml Tube Feeding 408 ml 571 ml 309 ml 240 ml 300 ml Other 50 ml 100 ml 60 ml Output Urine Total 550 ml 1300 ml 850 ml 500 ml 2275 ml # Bowel Movements 2 2 2 2 4 Result Diagram: 10/19/1561710/19/15617 Objective Remarks GENERAL: MBMN male on Vent. SKIN: Warm and dry. HEAD: Normocephalic. EYES: No scleral icterus. No injection or drainage. NECK: Supple, trachea midline. No JVD or lymphadenopathy. has trach CARDIOVASCULAR: Regular rate and rhythm without murmurs, gallops, or rubs. RESPIRATORY: Breath sounds equal bilaterally. No accessory muscle use. GASTROINTESTINAL: Abdomen soft, non-tender, nondistended. PEG tube in place MUSCULOSKELETAL: No cyanosis, or edema. BACK: Nontender without obvious deformity. No CVA tenderness. A/P Assessment and Plan VDRF S/P Trach Parkinson's diasease Dementia Aspiration PLAN: TF Cont ACV Abx Per ID CPAP trial in AM Severiano Ag MD Oct 19, 2015 19:10
[2015-10-19] MEDS: ENOXAPARIN SODIUM 40 MG/0.4 ML SYRINGE SQ SCH (21:40)
[2015-10-19] MEDS: OLANZapine 5 MG TAB GT SCH (21:41)
[2015-10-20] VITALS (19 sets, daily range): BP systolic 94–121; BP diastolic 60–80; PULSE 74–102; RESP 18–26; TEMP 97.7–99; O2SAT 100
[2015-10-20] MEDS: INSULIN NovoLIN REGULAR SUPPLEMENTAL SCALE SQ SCH ×4 (00:32→17:34)
[2015-10-20] MEDS: SODIUM CHLORIDE 0.9% FLUSH 5 ML FLUSH IVF PRN ×2 (02:04→07:56)
[2015-10-20] MEDS: ONDANSETRON HCL 4 MG/2 ML VIAL IV PRN (02:04)
[2015-10-20] MEDS: RESP: ALBUTEROL 2.5 MG/IPRATROPIUM 0.5 MG NEB (SCH) NEB ×2 (04:24→07:41)
[2015-10-20] MEDS: CARBIDOPA/LEVODOPA 25 MG/100 MG TAB GT SCH ×3 (05:25→21:29)
[2015-10-20] MEDS: clonazePAM 1 MG TAB PO SCH ×3 (05:25→21:29)
[2015-10-20] MEDS: MEROPENEM INJ 1,000 MG in SODIUM CHLORIDE 0.9% INJ 100 ML IV SCH ×3 (05:25→21:28)
--- NOTE | 2015-10-20 07:31 | HHI.CCPN ---
Subjective Remarks/Hospital Course 06/17: Pt is a 54 yr man with multiple medical problems including Parkinson's disease, advanced dementia, hyponatremia, anxiety, pneumonia, GERD, cognitive disorder, and multidrug resistant UTI- ESBL02/19/15 , who resides in a alf. Pt by report was found by staff in alf to be less alert and having respiratory difficultly and fevers. Pt was brought to ED adn placed on ventilator. His workup was inclusive of labs, chest xray and ct head and abd/pelvis. WBC 16.4, +UTI, lactic acid 4, troponin ,0.02, BUN/ cre 18/ 0.76. CT head 06/18/15: diffuse atrophy unchanged. No acute intracranial findings ct abd/ pelvis with IV contrast: 06/18/15 Conclusion: 1. Chronic nonspecific urinary bladder wall thickening. Bladder collapsed with Putnam catheter in place. 2.Chronic bilateral mid to lower zone groundglass opacity. 3. Nonobstructing left renal calculus. 4. Distended rectum Pt admitted and fluid and abx ordered. 06/18: Drowsy, easily arousable. On mechanical ventilation via tracheostomy. Tachypneic. Resting tremor noted. 06/19: Drowsy, arousable. On mechanical ventilation via tracheostomy. 06/20: Drowsy, arousable. Remains on mechanical ventilation via tracheostomy. We'll repeat blood cultures, UA and urine cultures. Fluconazole IV added in view of yeast in urine. 07/06: Reconsulted as patient return to the ventilator on a right ventricular due to tachypnea. Low-grade temperatures. Tolerating tube feeding. Extremity encephalopathic demented patient with difficult neurological examination. 07/07: Status post chest tube placement by IR for right pneumothorax 07/06. Afebrile. Tolerating tube feeds. Positive BM. Currently tachypneic on the ventilator. Does not appear to be any acute distress. 07/08: Afebrile. Tolerating tube feeding. He is comfortable currently on CPAP trials 11/10. Positive BM. 07/09: Afebrile. Tolerating tube feeding. Appears comfortable on T bar. Positive BM. 07/10: Afebrile. Eyes are open. Remained on T piece overnight. Tolerating tube feeding. 07/11: MAXIMUM TEMPERATURE 100. Currently 98.6. Eyes are open. On ACV overnight secondary to "tachypnea and sweating". Switching back to PSV trials today. Goal is T piece during daytime, CPAP at night. 07/12: No acute events overnight. On PSV 15/5 -attempt TP up to 6 hours today. No pneumothorax on chest x-ray 07/13: Placed back on full ventilator support for tachypnea. Otherwise clinically unchanged. No fever today 07/14: Patient was on T piece yesterday evening, placed back on PSV overnight, patient mechanical ventilation this morning. Patient appears to be struggling with mechanical ventilation. Patient placed back on PSV with improvement 07/15: Patient placed back on mechanical ventilation last evening due to respiratory rate. It was indicated patient was tachypnea can the 40s. Patient on mechanical ventilation this time with respiration rate mid 20s. Chest tube still in place without any output, chest x-ray still indicating resolution of pneumothorax. 07/16: Patient seen and examined today. Patient placed back on mechanical ventilation overnight due to respiratory rate. Even on mechanical ventilation patient has respiration rate in the 30s. Patient afebrile, blood pressure stable. Continue vent weaning 07/17: Patient seen and examined. Currently afebrile. Currently on CPAP 15/5 @ 40%. Patient is awake with open mouth resting in bed in no apparent acute distress. Tolerating tube feeding. 2 bowel movements. 07/18: No neurological changes. Afebrile. 2 bowel moments. Tolerating tube feeding. We'll attempt TP trials today. On CPAP since 07/15 07/19 No events overnight. On CPAP with PS: 10, PEEP: 5 and FIO2 35%. Afebrile. On no sedation. 07/20 No events overnight. Tolerating CPAP. Afebrile. 07/21: Remains on CPAP. Attempt T piece trial today. Afebrile. One bowel movement. Tolerating tube feeding. 07/22: Afebrile. Positive BM. Tolerating tube feeding. Noted switched tracheostomy to #6 Shiley cuffed fenestrated. Neurologically unchanged 07/23: Afebrile. Positive BM. Tolerating tube feeding. Questionable leak in exchange trach. Place back on a rate/ACV overnight. Insufflated seems to be doing better at the present time. Will check chest x-ray. Possible he might need #6 XLT versus replacement of chronic #8 Shiley. 07/24: Tolerating TP today, RR in low 30s patient appears comfortable. No acute events overnight 07/25: Remains off the ventilator more than 36 hours now. Intermittently tachypneic probably breathing. Chest x-ray was clear yesterday. No acute events reported overnight. PEG not functioning per RN 08/02: Patient was transferred back to critical care service due to continuing ventilator management, tachypnea. Patient clinical status with no significant change. Patient with low-grade fever 100.2, 08/03: Patient seen and examined today. No significant change in clinical status. Patient still with chronic tachypnea. Patient afebrile now. 08/04: Patient seen and examined today. No change in clinical status. Patient still continues to have chronic tachypnea. Patient afebrile. Continue vent weaning 08/05: Patient seen and examined today. Patient had chest tube removed yesterday , chest x-ray shows redevelopment of pneumothorax. Chest tube replaced. Otherwise, patient still on ventilator with tachypnea. Afebrile 08/06: Patient seen and examined today. Patient went to have chest tube placed, repeat chest x-ray did not indicate any pneumothorax. No overnight events. We' ll need to pursue LTAC placement 08/07 No events overnight. On ventilator via trach. Afebrile. 08/08 Patient tolerated CPAP x4 hrs yesterday. Afebrile. On no sedation. 08/09 No events overnight. Tolerated CPAP x 12 hrs yesterday. Afebrile. 08/10 Patient tolerated TP's x 12 hrs yesterday back on ACV overnight. 08/11 No events overnight, currently on TP's with 40% FIO2. Afebrile. 08/12 On CPAP 10/5. Tolerated Tpiece 3 hours earlier today. Afebrile. 08/13 On CPAP 10/5. Not tolerating CPAP as well over last few days and RT notes challenge with suctioning respiratory secretions adequately. Discussing with healthcare proxy regarding exchange trach to 8.0. 08/14 Nursing and RT staff having continued difficulty suctioning respiratory secretions via 6.0 tracheostomy. KAREN Garcia did not consent to stoma dilation and trach upsize yesterday but said she would call back and let me know but no return call. Contacted again today and left a message. Afebrile. On CPAP 10/5. Brow furrowing on exam, appears to be in pain but pain not localizable. Tolerating tube feeds, had BM yesterday 08/15 Not tolerating CPAP today. Contacted healthcare surrogate again and discussed need for trach change. She consented and trach was dilated and up- sized to 8.0 Distal XLT to facilitate pulmonary toilet and to address volume leak. 08/16 No events overnight. Remains on ventilator via trach. Afebrile. Tolerating TF. 08/17 No events overnight. Afebrile. 08/18 Patient tolerated CPAP x 4 hrs yesterday. Afebrile.On ventilator via trach. 08/19 On CPAP 25/06. Temp max 99.3 08/20 Stenotrophomonas in sputum, started on Levaquin per ID. Temp max 99.8. On CPAP 20/09. Tube feeds were held because PEG was clogged but now PEG is functioning. 08/21 No events overnight. Afebrile. Remains on ventilator via trach. Has been tolerating CPAP trials for last 2 days. 08/22 No events overnight. Afebrile , Has been on CPAP all night with PS: 20, PEEP; 5 and FIO2 35%. 08/23 No events overnight. Remains on CPAP, T:99.9 08/24 No events overnight. On CPAP PS 10, PEEP; 5 and FIO2 35% overnight. Afebrile. 08/25 No events overnight. Afebrile. On CPAP overnight with PS 8, PEEP: 5 and FIO2 35%, afebrile. Tolerating TF. 08/26 Tolerating Tpiece. 08/27 Tolerated Tpiece yesterday and overnight. However this evening desaturated and was placed back on CPAP. Dr. Mistry attempted to update daughter Radha Foreman and discuss his overall poor prognosis for recovery, but call got disconnected midway through call and could not reach her back 08/28 On PSV 10/5 40% today. Afebrile. 08/29 On CPAP overnight. Now on Tpiece 70% per pulmonology. Increased yellow secretions noted. Temp max 99.1 Nursing staff expresses concern that he appears uncomfortable during all nursing care. Called elsa Garcia to update , no answer, left message to call me. 08/30: On CPAP overnight. Currently on T piece at 45%. Currently afebrile. Positive BM. Tolerating tube feeding. 08/31: On CPAP overnight. Will return T piece at 35%. MAXIMUM TEMPERATURE 99.6. 5 bowel movements. Tolerating tube feeds. Neurological examination unchanged. 09/01: Tmax 99.2. Currently afebrile. Currently in TPs at 35%. 7 bowel movement overnight. Tolerating tube feeding. Subjective: 09/19: Ciarra called secondary to aspiration on Gen. medical floor. Transfer to ICU and placed on mechanical ventilation. ABG shows CO2 retention. Etc. revealed no acute cardiac 20 finds however copious message to feed suctioned from trach tube 09/20 No events overnight. Afebrile. On ACV with RR 16, TV 500, PEEP: 5 and FIO2 40%. 09/21 No events overnight. Afebrile. 09/22 No events overnight. Tolerated CPAP all day yesterday with PS 12, PEEP:5 and FIO2 35%. Afebrile. 09/23 No events overnight. On no sedation Tolerated CPAP yesterday. Had T:100.3 last night. 09/24 Patient tolerated TP's x 6 hrs yesterday On CPAP 12/5 with 35% FIO2 overnight. Afebrile. 09/25 No events overnight. On CPAP overnight and TP's during day. Tolerating tube feeds. 10/11 Reconsult: Ciarra was called as patient was found hypotensive with SBP 80' s and tube feeds coming from trach site. Patient is receiving 1L bolus NS and STAT CXR showed mild pulm edema. On arrival to ICU patient was connected to ventilator ( On ACV RR 16, TV 500, PEEP:5 and FIO2 40% with sats 95%. Current BP 125/91 , P:81 10/12 Patient remains on ventilator overnight. Borderline low BP with MAP ranges 67-72. Afebrile. On no sedation. 10/13 Patient is on ventilator via trach, afebrile, WBC trending down. Patient was hypotensive yesterday responded to fluid resuscitation not on any pressors. 10/14: No acute events overnight. WBC count has normalized. Will start SBT as tolerated. CXR in am 10/15 No acute events overnight. Phosphorus low needs replacement. Otherwise neuro exam remains unchanged. remains on CPAP 10/16 Patient remains on ventilator via trach. On no sedation. Afebrile. 10/17 No acute events overnight. On ventilator via trach. Afebrile. 10/18 Tolerates CPAP, but unable to wean further. Otherwise no acute events overnight, remains afebrile 10/19 Patient is on ventilator via trach, UO 175ml in last 7 hrs. Afebrile. Tolerated CPAP x 6 hrs yesterday. Objective - Vital Signs Date Time Temp Pulse Resp B/P Pulse Ox O2 Delivery O2 Flow Rate FiO2 10/20/15 06:00 95 10/20/15 04:25 100 35 10/20/15 04:00 99.0 21 108/67 Intake and Output 10/19/15 10/19/15 10/20/15 08:00 16:00 00:00 Intake Total 506 ml 360 ml 896 ml Output Total 500 ml 2275 ml 950 ml Balance 6 ml -1915 ml -54 ml Result Diagram: 10/19/15 0618 10/19/15 0618 Other Results Imaging Last Impressions Chest X-Ray 10/19/15 0000 Signed Impressions: Service Date/Time: Monday, October 19, 2015 12:15 - CONCLUSION: No acute pulmonary infiltrates. Ilir Agosto MD Upper Extremity Ultrasound 10/13/15 0000 Signed Impressions: Service Date/Time: Tuesday, October 13, 2015 09:51 - CONCLUSION: 1. No evidence of deep venous thrombosis. John Anderson MD Abdomen X-Ray 10/12/15 0000 Signed Impressions: Service Date/Time: Monday, October 12, 2015 17:37 - CONCLUSION: 1. Gastrostomy tube in place 2. Unremarkable bowel gas pattern. Salazar Thurman MD Renal Ultrasound 10/07/15 0000 Signed Impressions: Service Date/Time: Wednesday, October 07, 2015 18:29 - CONCLUSION: 1. No acute findings. 3.6 cm left renal cyst. Putnam catheter in bladder. Amaury Ellsworth MD Tunnelled Chest Tube Removal 08/05/15 1100 Signed Impressions: Service Date/Time: Wednesday, August 05, 2015 11:00 - CONCLUSION: Uncomplicated chest tube removal. Blaine Jackson MD Chest Tube Change 07/31/15 0000 Signed Impressions: Service Date/Time: Friday, July 31, 2015 14:34 - CONCLUSION: Uncomplicated reposition of previously placed chest tube as above. Blaine Jackson MD Chest Tube Insertion 07/30/15 0000 Signed Impressions: Service Date/Time: July 14:50 - CONCLUSION: Uncomplicated chest tube placement as above. Blaine Jackson MD Catheter Change 07/27/15 0000 Signed Impressions: Service Date/Time: Monday, July 27, 2015 14:43 - CONCLUSION: Uncomplicated gastrostomy tube exchange as above. Blaine Jackson MD Chest CT 07/11/15 Signed Impressions: Service Date/Time: Saturday, July 11, 2015 09:49 - CONCLUSION: Scattered patchy densities significantly improved from previous study. Tiny anterior right basilar pneumothorax. Right-sided chest tube in good position. Néstor Matamoros MD Head CT 06/18/151902 Signed Impressions: Service Date/Time: , June 18, 2015 19:31 - CONCLUSION: Diffuse atrophy unchanged. No acute intracranial findings. Kush Briscoe MD Abdomen/Pelvis CT 06/18/151902 Signed Impressions: Service Date/Time: , June 18, 2015 19:36 - CONCLUSION: 1. Chronic nonspecific urinary bladder wall thickening. Bladder collapsed with Putnam catheter in place. 2. Chronic bilateral mid to lower lung zone groundglass opacity. 3. Nonobstructing left renal calculus. 4. Distended rectum. Kush Briscoe MD Objective Remarks GENERAL: 54-year-old male, cachectic, debilitated with contractures on ventilator via trach. HEENT: NC/AT. PERRL. MMM. OP without erythema or exudates NECK: No JVD. Supple. 8.0 Distal XLT trach in place CARDIAC: RRR. S1/S2. No S4. No murmurs, clicks gallops or rubs. LUNGS: B/L eqal air entry with few coarse BS ABDOMEN: S/NT/ND. Positive BS EXTREMITIES: 1+ dependent pedal edema. Contractures and deformities of fingers. Stage III coccyx/sacral decubitus ulcer NEUROLOGY: Patient with significant contractures of the bilateral lower extremity, upper extremities. Eyes open spontaneously. Temporal and facial muscle wasting, muscular atrophy all extremities. Procedures 07/26- PEG replacement 07/29- right pigtail catheter placement for new pneumothorax Date of Insertion: Oct 05, 2015 A/P Assessment and Plan Neuro/Psych: Parkinson's disease Cognitive disorder not otherwise specified Chronic encephalopathy Dementia Depression Contractures On no sedation, monitor neuro status. CT head 06/18/15: - diffuse atrophy unchanged. No acute intracranial findings Continue Sinemet 25/100 q8 via PEG, Seroquel 50 mg twice a day, olanzapine 5 mg a night, Klonopin 2 mg every 8 hours, Paxil 20 daily Continue Lortab when necessary pain and fentanyl patch 50 g every 3 days for pain management. Fentanyl bolus prn breakthrough pain or if needed for turning/ nursing care/etc. Resp: Acute on chronic respiratory failure Chronic trach #8 Shiley distal XLT Pneumonia, aspiration (ESBL Klebsiella and Pseudomonas pneumonia) Right pneumothorax status post pigtail catheter 2 (resolved) Continue with vent support keep sat >90%. Ventilator bundle, pulm toilet, trach care, daily SBT, TP if patient tolerates Pulmonary Dr. Restrepo following. On Prednisone 60mg daily Exchanged to 8 Distal XLT on 08/15 to facilitate suctioning, trach care. Bronchodilators ( DuoNeb) CXR 10/18: No acute pulmonary infiltrates Cardiac History of orthostasis History of CAD History dyslipidemia History of hypertension Continue Midodrine 5 mg BID Monitor HR and BP keep MAP>65mmHg. GI: Chronic moderate protein energy malnutrition Dysphagia Status post PEG Internal hemorrhoids Gastroesophageal reflux disease - Restart TF Jevity 1.5 with goal rate 60ml/hr, on Reglan 5mg Q8 PRN for high residuals. - On Prevacid 30 mg per PEG tube daily for GERD - 10/11 KUB abdomen: PEG tube in place. Unremarkable bowel gas pattern. FEN/Renal: Nonobstructing left renal calculus - Monitor renal function, I/O's. electrolytes replacement per protocol. Give NS 500ml bolus for decrease UO. ID: Sepsis Aspiration pneumonia Cele UTI 10/12 BC: NGTD 10/11 BC: NGTD 10/11 Urine cx: C. Tropicalis 10/11 Sputum: ESBL Klebsiella and Pseudomonas pneumonia 10/10 Urine: C. Tropicalis 09/21 Urine cx: Pseudomonas ? colonized 09/19 Sputum cx: Pseudomonas, Kleb pneumonia ESBL pos Candiduria (cele tropicalis urine cx 08/17) ESBL positive Klebsiella/Pseudomonas pneumonia Stenotrophomonas in sputum 08/17 MRSA colonization sepsis UTI Klebsiella ESBL positive (has been treated) Continue with abx ( Merrem) stop date 10/22 s/p Vanco 1gram x1 10/12, follow up on cxs and monitor for signs of infections ( Fever, WBC) ID service is following- Dr. Enoc Moss. Recheck sputum cx, UA with cx if indicated Endo: On SSI ( medium) with accuchecks Q6. Heme Normocytic Anemia - Monitor CBC MSK Bilateral lower extremity Contractures Stage III sacral decubitus present on admission - Wound care and PT on case Prophylaxis - GI - Prevacid - DVT - SCDs/ Lovenox. Check labs today ACCESS: PIVs Level 3 Antonio Carr MD Oct 20, 2015 07:31
[2015-10-20] MEDS ORDERED: SODIUM CHLORID 0.9% 500 ML INJ 500 ML IV ONE ×2 (07:45→12:15)
[2015-10-20] MEDS: CHLORHEXIDINE 0.12% (ORAL KIT) 15 ML CUP MT SCH ×2 (07:54→21:29)
[2015-10-20] MEDS: GABAPENTIN 300 MG CAP G-TUBE SCH ×2 (07:55→21:28)
[2015-10-20] MEDS: LANSOPRAZOLE SOLUTAB 30 MG TAB NG SCH (07:55)
[2015-10-20] MEDS: LACTOBACILLUS ACIDOPHILUS TAB PO SCH ×3 (07:55→17:57)
[2015-10-20] MEDS: predniSONE 20 MG TAB PO SCH (07:55)
[2015-10-20] MEDS: QUEtiapine FUMARATE 25 MG TAB G-TUBE SCH ×2 (07:55→17:57)
[2015-10-20] MEDS: MIDODRINE 5 MG TAB G-TUBE SCH ×2 (07:55→21:29)
[2015-10-20] MEDS: PARoxetine HCL 20 MG TAB G-TUBE SCH (07:55)
[2015-10-20] MEDS: SODIUM CHLORIDE 0.9% FLUSH 5 ML FLUSH IVF SCH ×2 (07:56→21:30)
[2015-10-20] MEDS: ARTIFICIAL TEARS OPTH SOLN 15 ML BTL EACH EYE SCH ×3 (07:56→17:56)
[2015-10-20] MEDS: COLLAGENASE OINT 30 GM TUBE TOP SCH (07:57)
[2015-10-20 11:33] LABS: AUTOMATED NEUTROPHIL # 16.2 TH/MM3 (1.8-7.7); BASOPHIL % 0.3 % (0.0-2.0); EOSINOPHIL % 0.1 % (0.0-4.0); HEMATOCRIT 33.6 % (39.0-51.0); HEMO FLAGS DIFF FINAL; LYMPHOCYTE # 0.9 TH/MM3 (1.0-4.8); MEAN CELL VOLUME 82.3 FL (80.0-100.0); MEAN CORPUSCULAR HEMOGLOBIN 25.9 PG (27.0-34.0); MEAN CORPUSCULAR HGB CONC 31.4 % (32.0-36.0); MONO % 3.6 % (0.0-8.0); PLATELET COUNT 209 TH/MM3 (150-450); RED BLOOD COUNT 4.09 MIL/MM3 (4.50-5.90); RED CELL DISTRIBUTION WIDTH 18.4 % (11.6-17.2); WHITE BLOOD COUNT 17.8 TH/MM3 (4.0-11.0)
[2015-10-20 11:55] LABS: BICARBONATE 34.5 MEQ/L (21.0-32.0); MAGNESIUM 2.3 MG/DL (1.5-2.5); POTASSIUM 3.9 MEQ/L (3.5-5.1)
[2015-10-20 16:20] LABS: BLOOD, URINE SMALL (NEG); CALCIUM OXALATE CRYSTALS,URINE FEW /hpf; GLUCOSE,URINE NEG (NEG); HYALINE CAST, URINE 1 /lpf (RARE); KETONE, URINE NEG (NEG); MUCUS URINE FEW /lpf (OCC); NITRITE,URINE NEG (NEG); SQUAMOUS EPITHELIAL CELL URINE <1 /hpf (0-5); URINE COLOR YELLOW (YELLW/STRAW)
[2015-10-20 16:23] LABS: COMMENT (UR) CATH-CULTURE IND; CULTURE IF INDICATED CATH CULTURE IND
--- NOTE | 2015-10-20 18:52 | HHI.PR ---
Subjective Remarks 54 YOWM with ChRF,Trach, multiple uti No fever Gets anxious. No Fever Mod amount of trach secretions. tolerating CPAP Objective Vital Signs Vital Signs Date Time Temp Pulse Resp B/P Pulse Ox O2 Delivery O2 Flow Rate FiO2 10/20/15 18:00 75 10/20/15 16:01 100 35 10/20/15 16:00 98.3 80 18 100/65 100 10/20/15 16:00 35 10/20/15 16:00 80 10/20/15 14:00 83 10/20/15 12:00 81 10/20/15 12:00 98.1 81 26 97/66 100 10/20/15 12:00 35 10/20/15 10:53 100 35 10/20/15 10:53 35 10/20/15 10:00 83 10/20/15 08:00 97.8 100 23 104/75 100 10/20/15 08:00 35 10/20/15 08:00 80 10/20/15 07:41 100 35 10/20/15 06:00 95 10/20/15 04:25 100 35 10/20/15 04:00 99.0 96 21 108/67 100 10/20/15 04:00 35 10/20/15 04:00 96 10/20/15 02:00 102 10/20/15 01:51 100 35 10/20/15 00:00 98.4 94 24 94/60 100 10/20/15 00:00 35 10/20/15 00:00 94 10/19/15 22:31 100 35 10/19/15 22:00 91 10/19/15 20:17 100 35 10/19/15 20:00 90 10/19/15 20:00 97.3 90 22 95/69 99 10/19/15 20:00 35 I/O 10/19/15 10/19/15 10/19/15 10/20/15 10/20/15 10/20/15 07:00 15:00 23:00 07:00 15:00 23:00 Intake Total 506 ml 360 ml 896 ml 459 ml 1346 ml Output Total 500 ml 2275 ml 950 ml 275 ml 350 ml Balance 6 ml -1915 ml -54 ml 184 ml 996 ml IV Total 266 ml 60 ml 305 ml 160 ml 1200 ml Tube Feeding 240 ml 300 ml 471 ml 239 ml 86 ml Other 120 ml 60 ml 60 ml Output Urine Total 500 ml 2275 ml 950 ml 175 ml 350 ml Emesis 100 ml # Bowel Movements 2 4 2 1 2 Result Diagram: 10/20/15 1037 10/20/15 1032 Objective Remarks GENERAL: MBMN male on Vent. SKIN: Warm and dry. HEAD: Normocephalic. EYES: No scleral icterus. No injection or drainage. NECK: Supple, trachea midline. No JVD or lymphadenopathy. has trach CARDIOVASCULAR: Regular rate and rhythm without murmurs, gallops, or rubs. RESPIRATORY: Breath sounds equal bilaterally. No accessory muscle use. GASTROINTESTINAL: Abdomen soft, non-tender, nondistended. PEG tube in place MUSCULOSKELETAL: No cyanosis, or edema. BACK: Nontender without obvious deformity. No CVA tenderness. A/P Assessment and Plan VDRF S/P Trach Parkinson's diasease Dementia Aspiration PLAN: TF Cont CPAP Abx Per ID ACV prn sob, techypnoea. Severiano Ag MD Oct 20, 2015 18:52
[2015-10-20] MEDS: RESP: ALBUTEROL 2.5 MG/3 ML NEB (PRN) NEB (19:59)
[2015-10-20] MEDS: OLANZapine 5 MG TAB GT SCH (21:29)
[2015-10-20] MEDS: ENOXAPARIN SODIUM 40 MG/0.4 ML SYRINGE SQ SCH (21:30)
[2015-10-21] VITALS (15 sets, daily range): BP systolic 97–150; BP diastolic 69–91; PULSE 61–78; RESP 18–24; TEMP 97.2–97.8; O2SAT 97–100
[2015-10-21] MEDS: RESP: ALBUTEROL 2.5 MG/3 ML NEB (PRN) NEB (01:17)
[2015-10-21] MEDS: SODIUM CHLORIDE 0.9% FLUSH 5 ML FLUSH IVF PRN (02:43)
[2015-10-21] MEDS: MORPHINE SULFATE 4 MG/ML INJ IV PUSH PRN (02:43)
[2015-10-21] MEDS: INSULIN NovoLIN REGULAR SUPPLEMENTAL SCALE SQ SCH ×5 (05:02→23:36)
[2015-10-21] MEDS: clonazePAM 1 MG TAB PO SCH ×3 (05:03→21:10)
[2015-10-21] MEDS: MEROPENEM INJ 1,000 MG in SODIUM CHLORIDE 0.9% INJ 100 ML IV SCH ×3 (05:03→21:11)
[2015-10-21] MEDS: CARBIDOPA/LEVODOPA 25 MG/100 MG TAB GT SCH ×3 (05:03→21:10)
[2015-10-21 05:47] LABS: AUTOMATED NEUTROPHIL # 8.4 TH/MM3 (1.8-7.7); EOSINOPHIL % 0.2 % (0.0-4.0); HEMATOCRIT 32.8 % (39.0-51.0); HEMO FLAGS DIFF FINAL; LYMPH % 12.7 % (9.0-44.0); LYMPHOCYTE # 1.3 TH/MM3 (1.0-4.8); MEAN CELL VOLUME 81.9 FL (80.0-100.0); MEAN CORPUSCULAR HEMOGLOBIN 26.4 PG (27.0-34.0); MEAN CORPUSCULAR HGB CONC 32.2 % (32.0-36.0); MONO % 6.2 % (0.0-8.0); NEUT % 80.9 % (16.0-70.0); PLATELET COUNT 214 TH/MM3 (150-450); RED BLOOD COUNT 4.01 MIL/MM3 (4.50-5.90); RED CELL DISTRIBUTION WIDTH 18.5 % (11.6-17.2); WHITE BLOOD COUNT 10.4 TH/MM3 (4.0-11.0)
[2015-10-21 06:09] LABS: POTASSIUM 3.7 MEQ/L (3.5-5.1)
--- NOTE | 2015-10-21 07:27 | HHI.CCPN ---
Subjective Remarks/Hospital Course 06/17: Pt is a 54 yr man with multiple medical problems including Parkinson's disease, advanced dementia, hyponatremia, anxiety, pneumonia, GERD, cognitive disorder, and multidrug resistant UTI- ESBL02/19/15 , who resides in a custodial. Pt by report was found by staff in custodial to be less alert and having respiratory difficultly and fevers. Pt was brought to ED adn placed on ventilator. His workup was inclusive of labs, chest xray and ct head and abd/pelvis. WBC 16.4, +UTI, lactic acid 4, troponin ,0.02, BUN/ cre 18/ 0.76. CT head 06/18/15: diffuse atrophy unchanged. No acute intracranial findings ct abd/ pelvis with IV contrast: 06/18/15 Conclusion: 1. Chronic nonspecific urinary bladder wall thickening. Bladder collapsed with Putnam catheter in place. 2.Chronic bilateral mid to lower zone groundglass opacity. 3. Nonobstructing left renal calculus. 4. Distended rectum Pt admitted and fluid and abx ordered. 06/18: Drowsy, easily arousable. On mechanical ventilation via tracheostomy. Tachypneic. Resting tremor noted. 06/19: Drowsy, arousable. On mechanical ventilation via tracheostomy. 06/20: Drowsy, arousable. Remains on mechanical ventilation via tracheostomy. We'll repeat blood cultures, UA and urine cultures. Fluconazole IV added in view of yeast in urine. 07/06: Reconsulted as patient return to the ventilator on a right ventricular due to tachypnea. Low-grade temperatures. Tolerating tube feeding. Extremity encephalopathic demented patient with difficult neurological examination. 07/07: Status post chest tube placement by IR for right pneumothorax 07/06. Afebrile. Tolerating tube feeds. Positive BM. Currently tachypneic on the ventilator. Does not appear to be any acute distress. 07/08: Afebrile. Tolerating tube feeding. He is comfortable currently on CPAP trials 11/10. Positive BM. 07/09: Afebrile. Tolerating tube feeding. Appears comfortable on T bar. Positive BM. 07/10: Afebrile. Eyes are open. Remained on T piece overnight. Tolerating tube feeding. 07/11: MAXIMUM TEMPERATURE 100. Currently 98.6. Eyes are open. On ACV overnight secondary to "tachypnea and sweating". Switching back to PSV trials today. Goal is T piece during daytime, CPAP at night. 07/12: No acute events overnight. On PSV 15/5 -attempt TP up to 6 hours today. No pneumothorax on chest x-ray 07/13: Placed back on full ventilator support for tachypnea. Otherwise clinically unchanged. No fever today 07/14: Patient was on T piece yesterday evening, placed back on PSV overnight, patient mechanical ventilation this morning. Patient appears to be struggling with mechanical ventilation. Patient placed back on PSV with improvement 07/15: Patient placed back on mechanical ventilation last evening due to respiratory rate. It was indicated patient was tachypnea can the 40s. Patient on mechanical ventilation this time with respiration rate mid 20s. Chest tube still in place without any output, chest x-ray still indicating resolution of pneumothorax. 07/16: Patient seen and examined today. Patient placed back on mechanical ventilation overnight due to respiratory rate. Even on mechanical ventilation patient has respiration rate in the 30s. Patient afebrile, blood pressure stable. Continue vent weaning 07/17: Patient seen and examined. Currently afebrile. Currently on CPAP 15/5 @ 40%. Patient is awake with open mouth resting in bed in no apparent acute distress. Tolerating tube feeding. 2 bowel movements. 07/18: No neurological changes. Afebrile. 2 bowel moments. Tolerating tube feeding. We'll attempt TP trials today. On CPAP since 07/15 07/19 No events overnight. On CPAP with PS: 10, PEEP: 5 and FIO2 35%. Afebrile. On no sedation. 07/20 No events overnight. Tolerating CPAP. Afebrile. 07/21: Remains on CPAP. Attempt T piece trial today. Afebrile. One bowel movement. Tolerating tube feeding. 07/22: Afebrile. Positive BM. Tolerating tube feeding. Noted switched tracheostomy to #6 Shiley cuffed fenestrated. Neurologically unchanged 07/23: Afebrile. Positive BM. Tolerating tube feeding. Questionable leak in exchange trach. Place back on a rate/ACV overnight. Insufflated seems to be doing better at the present time. Will check chest x-ray. Possible he might need #6 XLT versus replacement of chronic #8 Shiley. 07/24: Tolerating TP today, RR in low 30s patient appears comfortable. No acute events overnight 07/25: Remains off the ventilator more than 36 hours now. Intermittently tachypneic probably breathing. Chest x-ray was clear yesterday. No acute events reported overnight. PEG not functioning per RN 08/02: Patient was transferred back to critical care service due to continuing ventilator management, tachypnea. Patient clinical status with no significant change. Patient with low-grade fever 100.2, 08/03: Patient seen and examined today. No significant change in clinical status. Patient still with chronic tachypnea. Patient afebrile now. 08/04: Patient seen and examined today. No change in clinical status. Patient still continues to have chronic tachypnea. Patient afebrile. Continue vent weaning 08/05: Patient seen and examined today. Patient had chest tube removed yesterday , chest x-ray shows redevelopment of pneumothorax. Chest tube replaced. Otherwise, patient still on ventilator with tachypnea. Afebrile 08/06: Patient seen and examined today. Patient went to have chest tube placed, repeat chest x-ray did not indicate any pneumothorax. No overnight events. We' ll need to pursue LTAC placement 08/07 No events overnight. On ventilator via trach. Afebrile. 08/08 Patient tolerated CPAP x4 hrs yesterday. Afebrile. On no sedation. 08/09 No events overnight. Tolerated CPAP x 12 hrs yesterday. Afebrile. 08/10 Patient tolerated TP's x 12 hrs yesterday back on ACV overnight. 08/11 No events overnight, currently on TP's with 40% FIO2. Afebrile. 08/12 On CPAP 10/5. Tolerated Tpiece 3 hours earlier today. Afebrile. 08/13 On CPAP 10/5. Not tolerating CPAP as well over last few days and RT notes challenge with suctioning respiratory secretions adequately. Discussing with healthcare proxy regarding exchange trach to 8.0. 08/14 Nursing and RT staff having continued difficulty suctioning respiratory secretions via 6.0 tracheostomy. KAREN Garcia did not consent to stoma dilation and trach upsize yesterday but said she would call back and let me know but no return call. Contacted again today and left a message. Afebrile. On CPAP 10/5. Brow furrowing on exam, appears to be in pain but pain not localizable. Tolerating tube feeds, had BM yesterday 08/15 Not tolerating CPAP today. Contacted healthcare surrogate again and discussed need for trach change. She consented and trach was dilated and up- sized to 8.0 Distal XLT to facilitate pulmonary toilet and to address volume leak. 08/16 No events overnight. Remains on ventilator via trach. Afebrile. Tolerating TF. 08/17 No events overnight. Afebrile. 08/18 Patient tolerated CPAP x 4 hrs yesterday. Afebrile.On ventilator via trach. 08/19 On CPAP 25/06. Temp max 99.3 08/20 Stenotrophomonas in sputum, started on Levaquin per ID. Temp max 99.8. On CPAP 20/09. Tube feeds were held because PEG was clogged but now PEG is functioning. 08/21 No events overnight. Afebrile. Remains on ventilator via trach. Has been tolerating CPAP trials for last 2 days. 08/22 No events overnight. Afebrile , Has been on CPAP all night with PS: 20, PEEP; 5 and FIO2 35%. 08/23 No events overnight. Remains on CPAP, T:99.9 08/24 No events overnight. On CPAP PS 10, PEEP; 5 and FIO2 35% overnight. Afebrile. 08/25 No events overnight. Afebrile. On CPAP overnight with PS 8, PEEP: 5 and FIO2 35%, afebrile. Tolerating TF. 08/26 Tolerating Tpiece. 08/27 Tolerated Tpiece yesterday and overnight. However this evening desaturated and was placed back on CPAP. Dr. Mistry attempted to update daughter Radha Foreman and discuss his overall poor prognosis for recovery, but call got disconnected midway through call and could not reach her back 08/28 On PSV 10/5 40% today. Afebrile. 08/29 On CPAP overnight. Now on Tpiece 70% per pulmonology. Increased yellow secretions noted. Temp max 99.1 Nursing staff expresses concern that he appears uncomfortable during all nursing care. Called elsa Garcia to update , no answer, left message to call me. 08/30: On CPAP overnight. Currently on T piece at 45%. Currently afebrile. Positive BM. Tolerating tube feeding. 08/31: On CPAP overnight. Will return T piece at 35%. MAXIMUM TEMPERATURE 99.6. 5 bowel movements. Tolerating tube feeds. Neurological examination unchanged. 09/01: Tmax 99.2. Currently afebrile. Currently in TPs at 35%. 7 bowel movement overnight. Tolerating tube feeding. Subjective: 09/19: Ciarra called secondary to aspiration on Gen. medical floor. Transfer to ICU and placed on mechanical ventilation. ABG shows CO2 retention. Etc. revealed no acute cardiac 20 finds however copious message to feed suctioned from trach tube 09/20 No events overnight. Afebrile. On ACV with RR 16, TV 500, PEEP: 5 and FIO2 40%. 09/21 No events overnight. Afebrile. 09/22 No events overnight. Tolerated CPAP all day yesterday with PS 12, PEEP:5 and FIO2 35%. Afebrile. 09/23 No events overnight. On no sedation Tolerated CPAP yesterday. Had T:100.3 last night. 09/24 Patient tolerated TP's x 6 hrs yesterday On CPAP 12/5 with 35% FIO2 overnight. Afebrile. 09/25 No events overnight. On CPAP overnight and TP's during day. Tolerating tube feeds. 10/11 Reconsult: Ciarra was called as patient was found hypotensive with SBP 80' s and tube feeds coming from trach site. Patient is receiving 1L bolus NS and STAT CXR showed mild pulm edema. On arrival to ICU patient was connected to ventilator ( On ACV RR 16, TV 500, PEEP:5 and FIO2 40% with sats 95%. Current BP 125/91 , P:81 10/12 Patient remains on ventilator overnight. Borderline low BP with MAP ranges 67-72. Afebrile. On no sedation. 10/13 Patient is on ventilator via trach, afebrile, WBC trending down. Patient was hypotensive yesterday responded to fluid resuscitation not on any pressors. 10/14: No acute events overnight. WBC count has normalized. Will start SBT as tolerated. CXR in am 10/15 No acute events overnight. Phosphorus low needs replacement. Otherwise neuro exam remains unchanged. remains on CPAP 10/16 Patient remains on ventilator via trach. On no sedation. Afebrile. 10/17 No acute events overnight. On ventilator via trach. Afebrile. 10/18 Tolerates CPAP, but unable to wean further. Otherwise no acute events overnight, remains afebrile 10/19 Patient is on ventilator via trach, UO 175ml in last 7 hrs. Afebrile. Tolerated CPAP x 6 hrs yesterday. 10/20 No acute events overnight. Tolerated CPAP for several hrs yesterday. Afebrile. UO better ( 1275ml in 24hrs). Given 1L NS total yesterday for decrease UO. Objective - Vital Signs Date Time Temp Pulse Resp B/P Pulse Ox O2 Delivery O2 Flow Rate FiO2 10/21/15 06:00 67 10/21/15 04:01 100 35 10/21/15 04:00 97.3 20 132/85 Intake and Output 10/20/15 10/20/15 10/21/15 08:00 16:00 00:00 Intake Total 459 ml 1346 ml 727 ml Output Total 275 ml 350 ml 475 ml Balance 184 ml 996 ml 252 ml Result Diagram: 10/21/15 0426 10/21/15 0426 Other Results Laboratory Tests Test 10/20/15 10/20/15 10/20/15 10/21/15 10:32 10:37 12:38 04:26 Sodium Level 136 MEQ/L 137 MEQ/L Potassium Level 3.9 MEQ/L 3.7 MEQ/L Chloride Level 95 MEQ/L 97 MEQ/L Carbon Dioxide Level 34.5 MEQ/L 32.0 MEQ/L Anion Gap 7 MEQ/L 8 MEQ/L Blood Urea Nitrogen 23 MG/DL 20 MG/DL Creatinine 0.49 MG/DL 0.33 MG/DL Estimat Glomerular Filtration 179 ML/MIN 282 ML/MIN Rate Random Glucose 126 MG/DL 103 MG/DL Calcium Level 9.0 MG/DL 8.9 MG/DL Phosphorus Level 2.6 MG/DL 2.3 MG/DL Magnesium Level 2.3 MG/DL White Blood Count 17.8 TH/MM3 10.4 TH/MM3 Red Blood Count 4.09 MIL/MM3 4.01 MIL/MM3 Hemoglobin 10.6 GM/DL 10.6 GM/DL Hematocrit 33.6 % 32.8 % Mean Corpuscular Volume 82.3 FL 81.9 FL Mean Corpuscular Hemoglobin 25.9 PG 26.4 PG Mean Corpuscular Hemoglobin 31.4 % 32.2 % Concent Red Cell Distribution Width 18.4 % 18.5 % Platelet Count 209 TH/MM3 214 TH/MM3 Mean Platelet Volume 9.8 FL 9.6 FL Neutrophils (%) (Auto) 91.0 % 80.9 % Lymphocytes (%) (Auto) 5.0 % 12.7 % Monocytes (%) (Auto) 3.6 % 6.2 % Eosinophils (%) (Auto) 0.1 % 0.2 % Basophils (%) (Auto) 0.3 % 0.0 % Neutrophils # (Auto) 16.2 TH/MM3 8.4 TH/MM3 Lymphocytes # (Auto) 0.9 TH/MM3 1.3 TH/MM3 Monocytes # (Auto) 0.6 TH/MM3 0.6 TH/MM3 Eosinophils # (Auto) 0.0 TH/MM3 0.0 TH/MM3 Basophils # (Auto) 0.0 TH/MM3 0.0 TH/MM3 CBC Comment DIFF FINAL DIFF FINAL Differential Comment Urine Color YELLOW Urine Turbidity HAZY Urine pH 7.0 Urine Specific [place] 1.015 Urine Protein TRACE mg/dL Urine Glucose (UA) NEG mg/dL Urine Ketones NEG mg/dL Urine Occult Blood SMALL Urine Nitrite NEG Urine Bilirubin NEG Urine Urobilinogen LESS THAN 2.0 MG/DL Urine Leukocyte Esterase MOD Urine RBC 7 /hpf Urine WBC 9 /hpf Urine Squamous Epithelial <1 /hpf Cells Urine Calcium Oxalate Crystals FEW /hpf Urine Hyaline Casts 1 /lpf Urine Mucus FEW /lpf Urine Yeast (Budding) RARE Microscopic Urinalysis Comment CATH-CULTURE IND Imaging Last Impressions Chest X-Ray 10/19/15 0000 Signed Impressions: Service Date/Time: Monday, October 19, 2015 12:15 - CONCLUSION: No acute pulmonary infiltrates. lIir Agosto MD Upper Extremity Ultrasound 10/13/15 0000 Signed Impressions: Service Date/Time: Tuesday, October 13, 2015 09:51 - CONCLUSION: 1. No evidence of deep venous thrombosis. John Anderson MD Abdomen X-Ray 10/12/15 0000 Signed Impressions: Service Date/Time: Monday, October 12, 2015 17:37 - CONCLUSION: 1. Gastrostomy tube in place 2. Unremarkable bowel gas pattern. Salazar Thurman MD Renal Ultrasound 10/07/15 0000 Signed Impressions: Service Date/Time: Wednesday, October 07, 2015 18:29 - CONCLUSION: 1. No acute findings. 3.6 cm left renal cyst. Putnam catheter in bladder. Amaury Ellsworth MD Tunnelled Chest Tube Removal 08/05/15 1100 Signed Impressions: Service Date/Time: Wednesday, August 05, 2015 11:00 - CONCLUSION: Uncomplicated chest tube removal. Blaine Jackson MD Chest Tube Change 07/31/15 0000 Signed Impressions: Service Date/Time: Friday, July 31, 2015 14:34 - CONCLUSION: Uncomplicated reposition of previously placed chest tube as above. Blaine Jackson MD Chest Tube Insertion 07/30/15 0000 Signed Impressions: Service Date/Time: July 14:50 - CONCLUSION: Uncomplicated chest tube placement as above. Blaine Jackson MD Catheter Change 07/27/15 0000 Signed Impressions: Service Date/Time: Monday, July 27, 2015 14:43 - CONCLUSION: Uncomplicated gastrostomy tube exchange as above. Blaine Jackson MD Chest CT 07/11/15 0000 Signed Impressions: Service Date/Time: Saturday, July 11, 2015 09:49 - CONCLUSION: Scattered patchy densities significantly improved from previous study. Tiny anterior right basilar pneumothorax. Right-sided chest tube in good position. Néstor Matamoros MD Head CT 06/18/151902 Signed Impressions: Service Date/Time: June 19:31 - CONCLUSION: Diffuse atrophy unchanged. No acute intracranial findings. Kush Briscoe MD Abdomen/Pelvis CT 06/18/151902 Signed Impressions: Service Date/Time: June 19:36 - CONCLUSION: 1. Chronic nonspecific urinary bladder wall thickening. Bladder collapsed with Putnam catheter in place. 2. Chronic bilateral mid to lower lung zone groundglass opacity. 3. Nonobstructing left renal calculus. 4. Distended rectum. Kush Briscoe MD Objective Remarks GENERAL: 54-year-old male, cachectic, debilitated with contractures on ventilator via trach. HEENT: NC/AT. PERRL. MMM. OP without erythema or exudates NECK: No JVD. Supple. 8.0 Distal XLT trach in place CARDIAC: RRR. S1/S2. No S4. No murmurs, clicks gallops or rubs. LUNGS: B/L eqal air entry with few coarse BS ABDOMEN: S/NT/ND. Positive BS EXTREMITIES: 1+ dependent pedal edema. Contractures and deformities of fingers. Stage III coccyx/sacral decubitus ulcer NEUROLOGY: Patient with significant contractures of the bilateral lower extremity, upper extremities. Eyes open spontaneously. Temporal and facial muscle wasting, muscular atrophy all extremities. Procedures 07/26- PEG replacement 07/29- right pigtail catheter placement for new pneumothorax Date of Insertion: Oct 05, 2015 A/P Assessment and Plan Neuro/Psych: Parkinson's disease Cognitive disorder not otherwise specified Chronic encephalopathy Dementia Depression Contractures On no sedation, monitor neuro status. CT head 06/18/15: - diffuse atrophy unchanged. No acute intracranial findings Continue Sinemet 25/100 q8 via PEG, Seroquel 50 mg twice a day, olanzapine 5 mg a night, Klonopin 2 mg every 8 hours, Paxil 20 daily Continue Lortab when necessary pain and fentanyl patch 50 g every 3 days for pain management. Fentanyl bolus prn breakthrough pain or if needed for turning/ nursing care/etc. Resp: Acute on chronic respiratory failure Chronic trach #8 Shiley distal XLT Pneumonia, aspiration (ESBL Klebsiella and Pseudomonas pneumonia) Right pneumothorax status post pigtail catheter 2 (resolved) Continue with vent support keep sat >90%. Ventilator bundle, pulm toilet, trach care, daily SBT, TP if patient tolerates Pulmonary Dr. Restrepo following. On Prednisone 60mg daily Exchanged to 8 Distal XLT on 08/15 to facilitate suctioning, trach care. Bronchodilators ( DuoNeb) CXR 10/18: No acute pulmonary infiltrates Cardiac History of orthostasis History of CAD History dyslipidemia History of hypertension Continue Midodrine 5 mg BID Monitor HR and BP keep MAP>65mmHg. GI: Chronic moderate protein energy malnutrition Dysphagia Status post PEG Internal hemorrhoids Gastroesophageal reflux disease - On TF Jevity 1.5 @40ml/hr advance to goal rate 60ml/hr, on Reglan 5mg Q8 PRN for high residuals. - On Prevacid 30 mg per PEG tube daily for GERD - 10/11 KUB abdomen: PEG tube in place. Unremarkable bowel gas pattern. FEN/Renal: Nonobstructing left renal calculus - Monitor renal function, I/O's. electrolytes replacement per protocol. ID: Sepsis Aspiration pneumonia Cele UTI 10/12 BC: NGTD 10/11 BC: NGTD 10/11 Urine cx: C. Tropicalis 10/11 Sputum: ESBL Klebsiella and Pseudomonas pneumonia 10/10 Urine: C. Tropicalis 09/21 Urine cx: Pseudomonas ? colonized 09/19 Sputum cx: Pseudomonas, Kleb pneumonia ESBL pos Candiduria (cele tropicalis urine cx 08/17) ESBL positive Klebsiella/Pseudomonas pneumonia Stenotrophomonas in sputum 08/17 MRSA colonization sepsis UTI Klebsiella ESBL positive (has been treated) Continue with abx ( Merrem) stop date 10/22 s/p Vanco 1gram x1 10/12, follow up on sputum and urine cxs and monitor for signs of infections ( Fever, WBC) ID service is following- Dr. Enoc Moss. Endo: On SSI ( medium) with accuchecks Q6. Heme Normocytic Anemia - Monitor CBC MSK Bilateral lower extremity Contractures Stage III sacral decubitus present on admission - Wound care and PT on case Prophylaxis - GI - Prevacid - DVT - SCDs/ Lovenox. Check labs today ACCESS: PIVs Level 3 Antonio Carr MD Oct 21, 2015 07:27
[2015-10-21] MEDS: CHLORHEXIDINE 0.12% (ORAL KIT) 15 ML CUP MT SCH ×2 (07:30→21:09)
[2015-10-21] MEDS: LACTOBACILLUS ACIDOPHILUS TAB PO SCH ×3 (07:31→18:03)
[2015-10-21] MEDS: predniSONE 20 MG TAB PO SCH (07:31)
[2015-10-21] MEDS: QUEtiapine FUMARATE 25 MG TAB G-TUBE SCH ×2 (07:31→21:10)
[2015-10-21] MEDS: LANSOPRAZOLE SOLUTAB 30 MG TAB NG SCH (07:31)
[2015-10-21] MEDS: SODIUM CHLORIDE 0.9% FLUSH 5 ML FLUSH IVF SCH ×2 (07:31→21:10)
[2015-10-21] MEDS: GABAPENTIN 300 MG CAP G-TUBE SCH ×2 (07:31→21:10)
[2015-10-21] MEDS: MIDODRINE 5 MG TAB G-TUBE SCH ×2 (07:32→21:10)
[2015-10-21] MEDS: PARoxetine HCL 20 MG TAB G-TUBE SCH (07:32)
[2015-10-21] MEDS: ARTIFICIAL TEARS OPTH SOLN 15 ML BTL EACH EYE SCH ×3 (07:32→18:03)
[2015-10-21] MEDS: REMOVE OLD PATCH TD SCH (08:00)
[2015-10-21] MEDS: COLLAGENASE OINT 30 GM TUBE TOP SCH (09:00)
--- NOTE | 2015-10-21 18:30 | HHI.PR ---
Subjective Remarks 54 YOWM with ChRF,Trach, multiple uti No fever Gets anxious. No Fever Mod amount of trach secretions. tolerating CPAP Awake follows some commands Objective Vital Signs Vital Signs Date Time Temp Pulse Resp B/P Pulse Ox O2 Delivery O2 Flow Rate FiO2 10/21/15 16:20 100 35 10/21/15 11:46 97 35 10/21/15 09:00 35 10/21/15 08:56 98 35 10/21/15 06:00 67 10/21/15 04:01 100 35 10/21/15 04:00 35 10/21/15 04:00 61 10/21/15 04:00 97.3 61 20 132/85 100 10/21/15 02:00 70 10/21/15 01:17 100 35 10/21/15 00:00 97.7 65 18 150/91 100 10/21/15 00:00 65 10/21/15 00:00 35 10/20/15 22:26 100 35 10/20/15 22:00 80 10/20/15 20:00 97.7 74 22 121/80 100 10/20/15 20:00 74 10/20/15 20:00 35 10/20/15 19:14 100 35 I/O 10/20/15 10/20/15 10/20/15 10/21/15 10/21/15 10/21/15 07:00 15:00 23:00 07:00 15:00 23:00 Intake Total 459 ml 1346 ml 727 ml 526 ml Output Total 275 ml 350 ml 475 ml 450 ml Balance 184 ml 996 ml 252 ml 76 ml IV Total 160 ml 1200 ml 379 ml 181 ml Tube Feeding 239 ml 86 ml 148 ml 225 ml Other 60 ml 60 ml 200 ml 120 ml Output Urine Total 175 ml 350 ml 475 ml 450 ml Emesis 100 ml # Bowel Movements 1 2 1 1 Result Diagram: 10/21/1542510/21/15425 Objective Remarks GENERAL: MBMN male on Vent. SKIN: Warm and dry. HEAD: Normocephalic. EYES: No scleral icterus. No injection or drainage. NECK: Supple, trachea midline. No JVD or lymphadenopathy. has trach CARDIOVASCULAR: Regular rate and rhythm without murmurs, gallops, or rubs. RESPIRATORY: Breath sounds equal bilaterally. No accessory muscle use. GASTROINTESTINAL: Abdomen soft, non-tender, nondistended. PEG tube in place MUSCULOSKELETAL: No cyanosis, or edema. BACK: Nontender without obvious deformity. No CVA tenderness. A/P Assessment and Plan VDRF S/P Trach Parkinson's diasease Dementia Aspiration PLAN: TF Cont CPAP Abx Per ID ACV prn sob, techypnoea. Severiano Ag MD Oct 21, 2015 18:30
[2015-10-21] MEDS: ENOXAPARIN SODIUM 40 MG/0.4 ML SYRINGE SQ SCH (21:09)
[2015-10-21] MEDS: OLANZapine 5 MG TAB GT SCH (21:10)
[2015-10-22] VITALS (20 sets, daily range): BP systolic 112–132; BP diastolic 80–90; PULSE 67–92; RESP 19–32; TEMP 97.7–98.6; O2SAT 98–100
[2015-10-22] MEDS: SODIUM PHOSPHATE INJ 30 MMOL in SODIUM CHLOR 0.9% 250 ML INJ 240 ML IV PRN (01:45)
[2015-10-22] MEDS: clonazePAM 1 MG TAB PO SCH ×3 (05:09→21:16)
[2015-10-22] MEDS: CARBIDOPA/LEVODOPA 25 MG/100 MG TAB GT SCH ×3 (05:09→21:16)
[2015-10-22] MEDS: INSULIN NovoLIN REGULAR SUPPLEMENTAL SCALE SQ SCH ×3 (05:09→17:07)
[2015-10-22] MEDS: MEROPENEM INJ 1,000 MG in SODIUM CHLORIDE 0.9% INJ 100 ML IV SCH ×3 (05:10→19:37)
--- NOTE | 2015-10-22 06:59 | HHI.CCPN ---
Subjective Remarks/Hospital Course 06/17: Pt is a 54 yr man with multiple medical problems including Parkinson's disease, advanced dementia, hyponatremia, anxiety, pneumonia, GERD, cognitive disorder, and multidrug resistant UTI- ESBL02/19/15 , who resides in a long term. Pt by report was found by staff in long term to be less alert and having respiratory difficultly and fevers. Pt was brought to ED adn placed on ventilator. His workup was inclusive of labs, chest xray and ct head and abd/pelvis. WBC 16.4, +UTI, lactic acid 4, troponin ,0.02, BUN/ cre 18/ 0.76. CT head 06/18/15: diffuse atrophy unchanged. No acute intracranial findings ct abd/ pelvis with IV contrast: 06/18/15 Conclusion: 1. Chronic nonspecific urinary bladder wall thickening. Bladder collapsed with Putnam catheter in place. 2.Chronic bilateral mid to lower zone groundglass opacity. 3. Nonobstructing left renal calculus. 4. Distended rectum Pt admitted and fluid and abx ordered. 06/18: Drowsy, easily arousable. On mechanical ventilation via tracheostomy. Tachypneic. Resting tremor noted. 06/19: Drowsy, arousable. On mechanical ventilation via tracheostomy. 06/20: Drowsy, arousable. Remains on mechanical ventilation via tracheostomy. We'll repeat blood cultures, UA and urine cultures. Fluconazole IV added in view of yeast in urine. 07/06: Reconsulted as patient return to the ventilator on a right ventricular due to tachypnea. Low-grade temperatures. Tolerating tube feeding. Extremity encephalopathic demented patient with difficult neurological examination. 07/07: Status post chest tube placement by IR for right pneumothorax 07/06. Afebrile. Tolerating tube feeds. Positive BM. Currently tachypneic on the ventilator. Does not appear to be any acute distress. 07/08: Afebrile. Tolerating tube feeding. He is comfortable currently on CPAP trials 11/10. Positive BM. 07/09: Afebrile. Tolerating tube feeding. Appears comfortable on T bar. Positive BM. 07/10: Afebrile. Eyes are open. Remained on T piece overnight. Tolerating tube feeding. 07/11: MAXIMUM TEMPERATURE 100. Currently 98.6. Eyes are open. On ACV overnight secondary to "tachypnea and sweating". Switching back to PSV trials today. Goal is T piece during daytime, CPAP at night. 07/12: No acute events overnight. On PSV 15/5 -attempt TP up to 6 hours today. No pneumothorax on chest x-ray 07/13: Placed back on full ventilator support for tachypnea. Otherwise clinically unchanged. No fever today 07/14: Patient was on T piece yesterday evening, placed back on PSV overnight, patient mechanical ventilation this morning. Patient appears to be struggling with mechanical ventilation. Patient placed back on PSV with improvement 07/15: Patient placed back on mechanical ventilation last evening due to respiratory rate. It was indicated patient was tachypnea can the 40s. Patient on mechanical ventilation this time with respiration rate mid 20s. Chest tube still in place without any output, chest x-ray still indicating resolution of pneumothorax. 07/16: Patient seen and examined today. Patient placed back on mechanical ventilation overnight due to respiratory rate. Even on mechanical ventilation patient has respiration rate in the 30s. Patient afebrile, blood pressure stable. Continue vent weaning 07/17: Patient seen and examined. Currently afebrile. Currently on CPAP 15/5 @ 40%. Patient is awake with open mouth resting in bed in no apparent acute distress. Tolerating tube feeding. 2 bowel movements. 07/18: No neurological changes. Afebrile. 2 bowel moments. Tolerating tube feeding. We'll attempt TP trials today. On CPAP since 07/15 07/19 No events overnight. On CPAP with PS: 10, PEEP: 5 and FIO2 35%. Afebrile. On no sedation. 07/20 No events overnight. Tolerating CPAP. Afebrile. 07/21: Remains on CPAP. Attempt T piece trial today. Afebrile. One bowel movement. Tolerating tube feeding. 07/22: Afebrile. Positive BM. Tolerating tube feeding. Noted switched tracheostomy to #6 Shiley cuffed fenestrated. Neurologically unchanged 07/23: Afebrile. Positive BM. Tolerating tube feeding. Questionable leak in exchange trach. Place back on a rate/ACV overnight. Insufflated seems to be doing better at the present time. Will check chest x-ray. Possible he might need #6 XLT versus replacement of chronic #8 Shiley. 07/24: Tolerating TP today, RR in low 30s patient appears comfortable. No acute events overnight 07/25: Remains off the ventilator more than 36 hours now. Intermittently tachypneic probably breathing. Chest x-ray was clear yesterday. No acute events reported overnight. PEG not functioning per RN 08/02: Patient was transferred back to critical care service due to continuing ventilator management, tachypnea. Patient clinical status with no significant change. Patient with low-grade fever 100.2, 08/03: Patient seen and examined today. No significant change in clinical status. Patient still with chronic tachypnea. Patient afebrile now. 08/04: Patient seen and examined today. No change in clinical status. Patient still continues to have chronic tachypnea. Patient afebrile. Continue vent weaning 08/05: Patient seen and examined today. Patient had chest tube removed yesterday , chest x-ray shows redevelopment of pneumothorax. Chest tube replaced. Otherwise, patient still on ventilator with tachypnea. Afebrile 08/06: Patient seen and examined today. Patient went to have chest tube placed, repeat chest x-ray did not indicate any pneumothorax. No overnight events. We' ll need to pursue LTAC placement 08/07 No events overnight. On ventilator via trach. Afebrile. 08/08 Patient tolerated CPAP x4 hrs yesterday. Afebrile. On no sedation. 08/09 No events overnight. Tolerated CPAP x 12 hrs yesterday. Afebrile. 08/10 Patient tolerated TP's x 12 hrs yesterday back on ACV overnight. 08/11 No events overnight, currently on TP's with 40% FIO2. Afebrile. 08/12 On CPAP 10/5. Tolerated Tpiece 3 hours earlier today. Afebrile. 08/13 On CPAP 10/5. Not tolerating CPAP as well over last few days and RT notes challenge with suctioning respiratory secretions adequately. Discussing with healthcare proxy regarding exchange trach to 8.0. 08/14 Nursing and RT staff having continued difficulty suctioning respiratory secretions via 6.0 tracheostomy. KAREN Garcia did not consent to stoma dilation and trach upsize yesterday but said she would call back and let me know but no return call. Contacted again today and left a message. Afebrile. On CPAP 10/5. Brow furrowing on exam, appears to be in pain but pain not localizable. Tolerating tube feeds, had BM yesterday 08/15 Not tolerating CPAP today. Contacted healthcare surrogate again and discussed need for trach change. She consented and trach was dilated and up- sized to 8.0 Distal XLT to facilitate pulmonary toilet and to address volume leak. 08/16 No events overnight. Remains on ventilator via trach. Afebrile. Tolerating TF. 08/17 No events overnight. Afebrile. 08/18 Patient tolerated CPAP x 4 hrs yesterday. Afebrile.On ventilator via trach. 08/19 On CPAP 25/06. Temp max 99.3 08/20 Stenotrophomonas in sputum, started on Levaquin per ID. Temp max 99.8. On CPAP 20/09. Tube feeds were held because PEG was clogged but now PEG is functioning. 08/21 No events overnight. Afebrile. Remains on ventilator via trach. Has been tolerating CPAP trials for last 2 days. 08/22 No events overnight. Afebrile , Has been on CPAP all night with PS: 20, PEEP; 5 and FIO2 35%. 08/23 No events overnight. Remains on CPAP, T:99.9 08/24 No events overnight. On CPAP PS 10, PEEP; 5 and FIO2 35% overnight. Afebrile. 08/25 No events overnight. Afebrile. On CPAP overnight with PS 8, PEEP: 5 and FIO2 35%, afebrile. Tolerating TF. 08/26 Tolerating Tpiece. 08/27 Tolerated Tpiece yesterday and overnight. However this evening desaturated and was placed back on CPAP. Dr. Mistry attempted to update daughter Radha Foreman and discuss his overall poor prognosis for recovery, but call got disconnected midway through call and could not reach her back 08/28 On PSV 10/5 40% today. Afebrile. 08/29 On CPAP overnight. Now on Tpiece 70% per pulmonology. Increased yellow secretions noted. Temp max 99.1 Nursing staff expresses concern that he appears uncomfortable during all nursing care. Called elsa Garcia to update , no answer, left message to call me. 08/30: On CPAP overnight. Currently on T piece at 45%. Currently afebrile. Positive BM. Tolerating tube feeding. 08/31: On CPAP overnight. Will return T piece at 35%. MAXIMUM TEMPERATURE 99.6. 5 bowel movements. Tolerating tube feeds. Neurological examination unchanged. 09/01: Tmax 99.2. Currently afebrile. Currently in TPs at 35%. 7 bowel movement overnight. Tolerating tube feeding. Subjective: 09/19: Ciarra called secondary to aspiration on Gen. medical floor. Transfer to ICU and placed on mechanical ventilation. ABG shows CO2 retention. Etc. revealed no acute cardiac 20 finds however copious message to feed suctioned from trach tube 09/20 No events overnight. Afebrile. On ACV with RR 16, TV 500, PEEP: 5 and FIO2 40%. 09/21 No events overnight. Afebrile. 09/22 No events overnight. Tolerated CPAP all day yesterday with PS 12, PEEP:5 and FIO2 35%. Afebrile. 09/23 No events overnight. On no sedation Tolerated CPAP yesterday. Had T:100.3 last night. 09/24 Patient tolerated TP's x 6 hrs yesterday On CPAP 12/5 with 35% FIO2 overnight. Afebrile. 09/25 No events overnight. On CPAP overnight and TP's during day. Tolerating tube feeds. 10/11 Reconsult: Ciarra was called as patient was found hypotensive with SBP 80' s and tube feeds coming from trach site. Patient is receiving 1L bolus NS and STAT CXR showed mild pulm edema. On arrival to ICU patient was connected to ventilator ( On ACV RR 16, TV 500, PEEP:5 and FIO2 40% with sats 95%. Current BP 125/91 , P:81 10/12 Patient remains on ventilator overnight. Borderline low BP with MAP ranges 67-72. Afebrile. On no sedation. 10/13 Patient is on ventilator via trach, afebrile, WBC trending down. Patient was hypotensive yesterday responded to fluid resuscitation not on any pressors. 10/14: No acute events overnight. WBC count has normalized. Will start SBT as tolerated. CXR in am 10/15 No acute events overnight. Phosphorus low needs replacement. Otherwise neuro exam remains unchanged. remains on CPAP 10/16 Patient remains on ventilator via trach. On no sedation. Afebrile. 10/17 No acute events overnight. On ventilator via trach. Afebrile. 10/18 Tolerates CPAP, but unable to wean further. Otherwise no acute events overnight, remains afebrile 10/19 Patient is on ventilator via trach, UO 175ml in last 7 hrs. Afebrile. Tolerated CPAP x 6 hrs yesterday. 10/20 No acute events overnight. Tolerated CPAP for several hrs yesterday. Afebrile. UO better ( 1275ml in 24hrs). Given 1L NS total yesterday for decrease UO. 10/21 Patient is on ventilator via trach tolerated CPAP for most of day yesterday. Afebrile. Tolerating tube feeds. Objective - Vital Signs Date Time Temp Pulse Resp B/P Pulse Ox O2 Delivery O2 Flow Rate FiO2 10/22/15 06:00 79 10/22/15 04:00 35 10/22/15 04:00 97.7 26 132/86 99 Intake and Output 10/21/15 10/21/15 10/22/15 08:00 16:00 00:00 Intake Total 526 ml 625 ml 781 ml Output Total 450 ml 650 ml 825 ml Balance 76 ml -25 ml -44 ml Result Diagram: 10/21/15 0426 10/21/15 0426 Other Results Imaging Last Impressions Chest X-Ray 10/19/15 0000 Signed Impressions: Service Date/Time: Monday, October 19, 2015 12:15 - CONCLUSION: No acute pulmonary infiltrates. Ilir Agosto MD Upper Extremity Ultrasound 10/13/15 0000 Signed Impressions: Service Date/Time: Tuesday, October 13, 2015 09:51 - CONCLUSION: 1. No evidence of deep venous thrombosis. John Anderson MD Abdomen X-Ray 10/12/15 0000 Signed Impressions: Service Date/Time: Monday, October 12, 2015 17:37 - CONCLUSION: 1. Gastrostomy tube in place 2. Unremarkable bowel gas pattern. Salazar Thurman MD Renal Ultrasound 10/07/15 0000 Signed Impressions: Service Date/Time: Wednesday, October 07, 2015 18:29 - CONCLUSION: 1. No acute findings. 3.6 cm left renal cyst. Putnam catheter in bladder. Amaury Ellsworth MD Tunnelled Chest Tube Removal 08/05/15 1100 Signed Impressions: Service Date/Time: Wednesday, August 05, 2015 11:00 - CONCLUSION: Uncomplicated chest tube removal. Blaine Jackson MD Chest Tube Change 07/31/15 0000 Signed Impressions: Service Date/Time: Friday, July 31, 2015 14:34 - CONCLUSION: Uncomplicated reposition of previously placed chest tube as above. Blaine Jackson MD Chest Tube Insertion 07/30/15 0000 Signed Impressions: Service Date/Time: July 14:50 - CONCLUSION: Uncomplicated chest tube placement as above. Blaine Jackson MD Catheter Change 07/27/15 0000 Signed Impressions: Service Date/Time: Monday, July 27, 2015 14:43 - CONCLUSION: Uncomplicated gastrostomy tube exchange as above. Blaine Jackson MD Chest CT 07/11/15 Signed Impressions: Service Date/Time: Saturday, July 11, 2015 09:49 - CONCLUSION: Scattered patchy densities significantly improved from previous study. Tiny anterior right basilar pneumothorax. Right-sided chest tube in good position. Néstor Matamoros MD Head CT 06/18/151902 Signed Impressions: Service Date/Time: June 19:31 - CONCLUSION: Diffuse atrophy unchanged. No acute intracranial findings. Kush Briscoe MD Abdomen/Pelvis CT 06/18/151902 Signed Impressions: Service Date/Time: June 19:36 - CONCLUSION: 1. Chronic nonspecific urinary bladder wall thickening. Bladder collapsed with Putnam catheter in place. 2. Chronic bilateral mid to lower lung zone groundglass opacity. 3. Nonobstructing left renal calculus. 4. Distended rectum. Kush Briscoe MD Objective Remarks GENERAL: 54-year-old male, cachectic, debilitated with contractures on ventilator via trach. HEENT: NC/AT. PERRL. MMM. OP without erythema or exudates NECK: No JVD. Supple. 8.0 Distal XLT trach in place CARDIAC: RRR. S1/S2. No S4. No murmurs, clicks gallops or rubs. LUNGS: B/L equal air entry ABDOMEN: S/NT/ND. Positive BS EXTREMITIES: 1+ dependent pedal edema. Contractures and deformities of fingers. Stage III coccyx/sacral decubitus ulcer NEUROLOGY: Patient with significant contractures of the bilateral lower extremity, upper extremities. Eyes open spontaneously. Temporal and facial muscle wasting, muscular atrophy all extremities. Procedures 07/26- PEG replacement 07/29- right pigtail catheter placement for new pneumothorax Date of Insertion: Oct 05, 2015 A/P Assessment and Plan Neuro/Psych: Parkinson's disease Cognitive disorder not otherwise specified Chronic encephalopathy Dementia Depression Contractures On no sedation, monitor neuro status. CT head 06/18/15: - diffuse atrophy unchanged. No acute intracranial findings Continue Sinemet 25/100 q8 via PEG, Seroquel 50 mg twice a day, olanzapine 5 mg a night, Klonopin 2 mg every 8 hours, Paxil 20 daily Continue Lortab when necessary pain and fentanyl patch 50 g every 3 days for pain management. Fentanyl bolus prn breakthrough pain or if needed for turning/ nursing care/etc. Resp: Acute on chronic respiratory failure Chronic trach #8 Shiley distal XLT Pneumonia, aspiration (ESBL Klebsiella and Pseudomonas pneumonia) Right pneumothorax status post pigtail catheter 2 (resolved) Continue with vent support keep sat >90%. Ventilator bundle, pulm toilet, trach care, daily SBT, TP if patient tolerates Pulmonary Dr. Restrepo following. On Prednisone 60mg daily Exchanged to 8 Distal XLT on 08/15 to facilitate suctioning, trach care. Bronchodilators ( DuoNeb) CXR 10/18: No acute pulmonary infiltrates Cardiac History of orthostasis History of CAD History dyslipidemia History of hypertension Continue Midodrine 5 mg BID Monitor HR and BP keep MAP>65mmHg. GI: Chronic moderate protein energy malnutrition Dysphagia Status post PEG Internal hemorrhoids Gastroesophageal reflux disease - On TF Jevity 1.5 @60ml/hr, on Reglan 5mg Q8 PRN for high residuals. - On Prevacid 30 mg per PEG tube daily for GERD - 10/11 KUB abdomen: PEG tube in place. Unremarkable bowel gas pattern. FEN/Renal: Nonobstructing left renal calculus - Monitor renal function, I/O's. electrolytes replacement per protocol. ID: Sepsis Aspiration pneumonia Cele UTI 10/19 Sputum: Pseudomonas- likely colonized 10/19 urine cx: Yeast species 10/12 BC: NGTD 10/11 BC: NGTD 10/11 Urine cx: C. Tropicalis 10/11 Sputum: ESBL Klebsiella and Pseudomonas pneumonia 10/10 Urine: C. Tropicalis 09/21 Urine cx: Pseudomonas ? colonized 09/19 Sputum cx: Pseudomonas, Kleb pneumonia ESBL pos Candiduria (cele tropicalis urine cx 08/17) ESBL positive Klebsiella/Pseudomonas pneumonia Stenotrophomonas in sputum 08/17 MRSA colonization sepsis UTI Klebsiella ESBL positive (has been treated) Continue with abx ( Merrem) stop date 10/22 s/p Vanco 1gram x1 10/12, monitor for signs of infections ( Fever, WBC) ID service is following- Dr. Enoc Moss. Endo: On SSI ( medium) with accuchecks Q6. Heme Normocytic Anemia - Monitor CBC MSK Bilateral lower extremity Contractures Stage III sacral decubitus present on admission - Wound care and PT on case Prophylaxis - GI - Prevacid - DVT - SCDs/ Lovenox. Follow up on labs today ACCESS: PIVs Level 3 Antonio Carr MD Oct 22, 2015 06:59
[2015-10-22 07:40] LABS: AUTOMATED NEUTROPHIL # 8.8 TH/MM3 (1.8-7.7); EOSINOPHIL # 0.1 TH/MM3 (0-0.4); EOSINOPHIL % 0.5 % (0.0-4.0); HEMATOCRIT 34.6 % (39.0-51.0); HEMO FLAGS DIFF FINAL; LYMPHOCYTE # 1.5 TH/MM3 (1.0-4.8); MEAN CELL VOLUME 82.5 FL (80.0-100.0); MEAN CORPUSCULAR HEMOGLOBIN 26.6 PG (27.0-34.0); MEAN CORPUSCULAR HGB CONC 32.2 % (32.0-36.0); MONO % 5.4 % (0.0-8.0); NEUT % 80.1 % (16.0-70.0); PLATELET COUNT 218 TH/MM3 (150-450); RED BLOOD COUNT 4.19 MIL/MM3 (4.50-5.90); RED CELL DISTRIBUTION WIDTH 18.5 % (11.6-17.2)
[2015-10-22 08:06] LABS: POTASSIUM 3.3 MEQ/L (3.5-5.1)
[2015-10-22] MEDS: PARoxetine HCL 20 MG TAB G-TUBE SCH (10:12)
[2015-10-22] MEDS: GABAPENTIN 300 MG CAP G-TUBE SCH ×2 (10:12→19:36)
[2015-10-22] MEDS: predniSONE 20 MG TAB PO SCH (10:12)
[2015-10-22] MEDS: LANSOPRAZOLE SOLUTAB 30 MG TAB NG SCH (10:12)
[2015-10-22] MEDS: SODIUM CHLORIDE 0.9% FLUSH 5 ML FLUSH IVF SCH ×2 (10:12→21:00)
[2015-10-22] MEDS: QUEtiapine FUMARATE 25 MG TAB G-TUBE SCH ×2 (10:12→19:36)
[2015-10-22] MEDS: CHLORHEXIDINE 0.12% (ORAL KIT) 15 ML CUP MT SCH ×2 (10:12→19:35)
[2015-10-22] MEDS: MIDODRINE 5 MG TAB G-TUBE SCH ×2 (10:12→19:36)
[2015-10-22] MEDS: LACTOBACILLUS ACIDOPHILUS TAB PO SCH ×3 (10:12→17:07)
[2015-10-22] MEDS: COLLAGENASE OINT 30 GM TUBE TOP SCH (10:13)
[2015-10-22] MEDS: ARTIFICIAL TEARS OPTH SOLN 15 ML BTL EACH EYE SCH ×3 (10:13→17:07)
--- NOTE | 2015-10-22 18:32 | HHI.PR ---
Subjective Remarks 54 YOWM with ChRF,Trach, multiple uti No fever Gets anxious. No Fever Mod amount of trach secretions. tolerating CPAP Tolerates TF Objective Vital Signs Vital Signs Date Time Temp Pulse Resp B/P Pulse Ox O2 Delivery O2 Flow Rate FiO2 10/22/15 18:00 91 10/22/15 17:37 100 35 10/22/15 16:00 85 10/22/15 16:00 98.6 89 32 112/80 100 10/22/15 16:00 35 10/22/15 14:00 87 10/22/15 13:11 99 35 10/22/15 12:00 82 10/22/15 12:00 98.5 81 31 119/80 100 10/22/15 12:00 35 10/22/15 10:00 86 10/22/15 09:35 98 35 10/22/15 09:35 35 10/22/15 08:00 98.2 82 31 124/83 98 10/22/15 08:00 92 10/22/15 08:00 35 10/22/15 07:56 99 35 10/22/15 07:55 99 Ventilator 35 10/22/15 06:00 79 10/22/15 04:00 35 10/22/15 04:00 67 10/22/15 04:00 97.7 67 26 132/86 99 10/22/15 03:59 100 35 10/22/15 02:00 82 10/22/15 01:08 100 35 10/22/15 00:00 77 10/22/15 00:00 98.2 77 19 119/84 99 10/22/15 00:00 35 10/21/15 22:00 78 10/21/15 21:57 100 35 10/21/15 20:00 35 10/21/15 20:00 97.8 78 23 123/87 99 10/21/15 20:00 78 I/O 10/21/15 10/21/15 10/21/15 10/22/15 10/22/15 10/22/15 07:00 15:00 23:00 07:00 15:00 23:00 Intake Total 526 ml 625 ml 781 ml 696 ml 911 ml Output Total 450 ml 650 ml 825 ml 775 ml 700 ml 600 ml Balance 76 ml -25 ml -44 ml -79 ml 211 ml -600 ml Intake Oral 0 ml IV Total 181 ml 180 ml 275 ml 177 ml 342 ml Tube Feeding 225 ml 345 ml 386 ml 399 ml 449 ml Tube Irrigant 100 ml Other 120 ml 120 ml 120 ml 120 ml Output Urine Total 450 ml 650 ml 825 ml 775 ml 700 ml 600 ml # Bowel Movements 1 3 1 1 1 Result Diagram: 10/22/15 0635 10/22/15 0635 Objective Remarks GENERAL: MBMN male on Vent. SKIN: Warm and dry. HEAD: Normocephalic. EYES: No scleral icterus. No injection or drainage. NECK: Supple, trachea midline. No JVD or lymphadenopathy. has trach CARDIOVASCULAR: Regular rate and rhythm without murmurs, gallops, or rubs. RESPIRATORY: Breath sounds equal bilaterally. No accessory muscle use. GASTROINTESTINAL: Abdomen soft, non-tender, nondistended. PEG tube in place MUSCULOSKELETAL: No cyanosis, or edema. BACK: Nontender without obvious deformity. No CVA tenderness. A/P Assessment and Plan VDRF S/P Trach Parkinson's diasease Dementia Aspiration PLAN: TF Cont CPAP Abx Per ID ACV prn sob, techypnoea. Trach care Severiano Ag MD Oct 22, 2015 18:32
[2015-10-22] MEDS: OLANZapine 5 MG TAB GT SCH (19:36)
[2015-10-22] MEDS: ENOXAPARIN SODIUM 40 MG/0.4 ML SYRINGE SQ SCH (21:17)
[2015-10-23] VITALS (19 sets, daily range): BP systolic 112–122; BP diastolic 75–89; PULSE 78–99; RESP 18–33; TEMP 97.8–99; O2SAT 92–100
[2015-10-23] MEDS: INSULIN NovoLIN REGULAR SUPPLEMENTAL SCALE SQ SCH ×4 (06:00→17:29)
[2015-10-23] MEDS: clonazePAM 1 MG TAB PO SCH ×3 (06:22→21:25)
[2015-10-23] MEDS: MEROPENEM INJ 1,000 MG in SODIUM CHLORIDE 0.9% INJ 100 ML IV SCH ×3 (06:22→21:26)
[2015-10-23] MEDS: CARBIDOPA/LEVODOPA 25 MG/100 MG TAB GT SCH ×3 (06:23→21:25)
[2015-10-23 06:54] LABS: AUTOMATED NEUTROPHIL # 7.8 TH/MM3 (1.8-7.7); BASOPHIL % 0.2 % (0.0-2.0); EOSINOPHIL % 0.4 % (0.0-4.0); HEMATOCRIT 33.4 % (39.0-51.0); HEMO FLAGS DIFF FINAL; LYMPH % 16.2 % (9.0-44.0); LYMPHOCYTE # 1.6 TH/MM3 (1.0-4.8); MEAN CELL VOLUME 81.9 FL (80.0-100.0); MEAN CORPUSCULAR HEMOGLOBIN 26.9 PG (27.0-34.0); MEAN CORPUSCULAR HGB CONC 32.8 % (32.0-36.0); MONO % 6.2 % (0.0-8.0); PLATELET COUNT 225 TH/MM3 (150-450); RED BLOOD COUNT 4.07 MIL/MM3 (4.50-5.90); RED CELL DISTRIBUTION WIDTH 18.4 % (11.6-17.2); WHITE BLOOD COUNT 10.1 TH/MM3 (4.0-11.0)
[2015-10-23 07:18] LABS: BICARBONATE 30.6 MEQ/L (21.0-32.0); MAGNESIUM 2.2 MG/DL (1.5-2.5); POTASSIUM 3.9 MEQ/L (3.5-5.1)
[2015-10-23] MEDS: CHLORHEXIDINE 0.12% (ORAL KIT) 15 ML CUP MT SCH ×2 (08:00→21:25)
--- NOTE | 2015-10-23 08:18 | HHI.CCPN ---
Subjective Remarks/Hospital Course 06/17: Pt is a 54 yr man with multiple medical problems including Parkinson's disease, advanced dementia, hyponatremia, anxiety, pneumonia, GERD, cognitive disorder, and multidrug resistant UTI- ESBL02/19/15 , who [facility] in a [facility]. Pt by report was found by staff in [facility] to be less alert and having respiratory difficultly and fevers. Pt was brought to ED adn placed on ventilator. His workup was inclusive of labs, chest xray and ct head and abd/pelvis. WBC 16.4, +UTI, lactic acid 4, troponin ,0.02, BUN/ cre 18/ 0.76. CT head 06/18/15: diffuse atrophy unchanged. No acute intracranial findings ct abd/ pelvis with IV contrast: 06/18/15 Conclusion: 1. Chronic nonspecific urinary bladder wall thickening. Bladder collapsed with Putnam catheter in place. 2.Chronic bilateral mid to lower zone groundglass opacity. 3. Nonobstructing left renal calculus. 4. Distended rectum Pt admitted and fluid and abx ordered. 06/18: Drowsy, easily arousable. On mechanical ventilation via tracheostomy. Tachypneic. Resting tremor noted. 06/19: Drowsy, arousable. On mechanical ventilation via tracheostomy. 06/20: Drowsy, arousable. Remains on mechanical ventilation via tracheostomy. We'll repeat blood cultures, UA and urine cultures. Fluconazole IV added in view of yeast in urine. 07/06: Reconsulted as patient return to the ventilator on a right ventricular due to tachypnea. Low-grade temperatures. Tolerating tube feeding. Extremity encephalopathic demented patient with difficult neurological examination. 07/07: Status post chest tube placement by IR for right pneumothorax 07/06. Afebrile. Tolerating tube feeds. Positive BM. Currently tachypneic on the ventilator. Does not appear to be any acute distress. 07/08: Afebrile. Tolerating tube feeding. He is comfortable currently on CPAP trials 11/10. Positive BM. 07/09: Afebrile. Tolerating tube feeding. Appears comfortable on T bar. Positive BM. 07/10: Afebrile. Eyes are open. Remained on T piece overnight. Tolerating tube feeding. 07/11: MAXIMUM TEMPERATURE 100. Currently 98.6. Eyes are open. On ACV overnight secondary to "tachypnea and sweating". Switching back to PSV trials today. Goal is T piece during daytime, CPAP at night. 07/12: No acute events overnight. On PSV 15/5 -attempt TP up to 6 hours today. No pneumothorax on chest x-ray 07/13: Placed back on full ventilator support for tachypnea. Otherwise clinically unchanged. No fever today 07/14: Patient was on T piece yesterday evening, placed back on PSV overnight, patient mechanical ventilation this morning. Patient appears to be struggling with mechanical ventilation. Patient placed back on PSV with improvement 07/15: Patient placed back on mechanical ventilation last evening due to respiratory rate. It was indicated patient was tachypnea can the 40s. Patient on mechanical ventilation this time with respiration rate mid 20s. Chest tube still in place without any output, chest x-ray still indicating resolution of pneumothorax. 07/16: Patient seen and examined today. Patient placed back on mechanical ventilation overnight due to respiratory rate. Even on mechanical ventilation patient has respiration rate in the 30s. Patient afebrile, blood pressure stable. Continue vent weaning 07/17: Patient seen and examined. Currently afebrile. Currently on CPAP 15/5 @ 40%. Patient is awake with open mouth resting in bed in no apparent acute distress. Tolerating tube feeding. 2 bowel movements. 07/18: No neurological changes. Afebrile. 2 bowel moments. Tolerating tube feeding. We'll attempt TP trials today. On CPAP since 07/15 07/19 No events overnight. On CPAP with PS: 10, PEEP: 5 and FIO2 35%. Afebrile. On no sedation. 07/20 No events overnight. Tolerating CPAP. Afebrile. 07/21: Remains on CPAP. Attempt T piece trial today. Afebrile. One bowel movement. Tolerating tube feeding. 07/22: Afebrile. Positive BM. Tolerating tube feeding. Noted switched tracheostomy to #6 Shiley cuffed fenestrated. Neurologically unchanged 07/23: Afebrile. Positive BM. Tolerating tube feeding. Questionable leak in exchange trach. Place back on a rate/ACV overnight. Insufflated seems to be doing better at the present time. Will check chest x-ray. Possible he might need #6 XLT versus replacement of chronic #8 Shiley. 07/24: Tolerating TP today, RR in low 30s patient appears comfortable. No acute events overnight 07/25: Remains off the ventilator more than 36 hours now. Intermittently tachypneic probably breathing. Chest x-ray was clear yesterday. No acute events reported overnight. PEG not functioning per RN 08/02: Patient was transferred back to critical care service due to continuing ventilator management, tachypnea. Patient clinical status with no significant change. Patient with low-grade fever 100.2, 08/03: Patient seen and examined today. No significant change in clinical status. Patient still with chronic tachypnea. Patient afebrile now. 08/04: Patient seen and examined today. No change in clinical status. Patient still continues to have chronic tachypnea. Patient afebrile. Continue vent weaning 08/05: Patient seen and examined today. Patient had chest tube removed yesterday , chest x-ray shows redevelopment of pneumothorax. Chest tube replaced. Otherwise, patient still on ventilator with tachypnea. Afebrile 08/06: Patient seen and examined today. Patient went to have chest tube placed, repeat chest x-ray did not indicate any pneumothorax. No overnight events. We' ll need to pursue LTAC placement 08/07 No events overnight. On ventilator via trach. Afebrile. 08/08 Patient tolerated CPAP x4 hrs yesterday. Afebrile. On no sedation. 08/09 No events overnight. Tolerated CPAP x 12 hrs yesterday. Afebrile. 08/10 Patient tolerated TP's x 12 hrs yesterday back on ACV overnight. 08/11 No events overnight, currently on TP's with 40% FIO2. Afebrile. 08/12 On CPAP 10/5. Tolerated Tpiece 3 hours earlier today. Afebrile. 08/13 On CPAP 10/5. Not tolerating CPAP as well over last few days and RT notes challenge with suctioning respiratory secretions adequately. Discussing with healthcare proxy regarding exchange trach to 8.0. 08/14 Nursing and RT staff having continued difficulty suctioning respiratory secretions via 6.0 tracheostomy. KAREN Garcia did not consent to stoma dilation and trach upsize yesterday but said she would call back and let me know but no return call. Contacted again today and left a message. Afebrile. On CPAP 10/5. Brow furrowing on exam, appears to be in pain but pain not localizable. Tolerating tube feeds, had BM yesterday 08/15 Not tolerating CPAP today. Contacted healthcare surrogate again and discussed need for trach change. She consented and trach was dilated and up- sized to 8.0 Distal XLT to facilitate pulmonary toilet and to address volume leak. 08/16 No events overnight. Remains on ventilator via trach. Afebrile. Tolerating TF. 08/17 No events overnight. Afebrile. 08/18 Patient tolerated CPAP x 4 hrs yesterday. Afebrile.On ventilator via trach. 08/19 On CPAP 25/06. Temp max 99.3 08/20 Stenotrophomonas in sputum, started on Levaquin per ID. Temp max 99.8. On CPAP 20/09. Tube feeds were held because PEG was clogged but now PEG is functioning. 08/21 No events overnight. Afebrile. Remains on ventilator via trach. Has been tolerating CPAP trials for last 2 days. 08/22 No events overnight. Afebrile , Has been on CPAP all night with PS: 20, PEEP; 5 and FIO2 35%. 08/23 No events overnight. Remains on CPAP, T:99.9 08/24 No events overnight. On CPAP PS 10, PEEP; 5 and FIO2 35% overnight. Afebrile. 08/25 No events overnight. Afebrile. On CPAP overnight with PS 8, PEEP: 5 and FIO2 35%, afebrile. Tolerating TF. 08/26 Tolerating Tpiece. 08/27 Tolerated Tpiece yesterday and overnight. However this evening desaturated and was placed back on CPAP. Dr. Mistry attempted to update daughter Radha Foreman and discuss his overall poor prognosis for recovery, but call got disconnected midway through call and could not reach her back 08/28 On PSV 10/5 40% today. Afebrile. 08/29 On CPAP overnight. Now on Tpiece 70% per pulmonology. Increased yellow secretions noted. Temp max 99.1 Nursing staff expresses concern that he appears uncomfortable during all nursing care. Called elsa Garcia to update , no answer, left message to call me. 08/30: On CPAP overnight. Currently on T piece at 45%. Currently afebrile. Positive BM. Tolerating tube feeding. 08/31: On CPAP overnight. Will return T piece at 35%. MAXIMUM TEMPERATURE 99.6. 5 bowel movements. Tolerating tube feeds. Neurological examination unchanged. 09/01: Tmax 99.2. Currently afebrile. Currently in TPs at 35%. 7 bowel movement overnight. Tolerating tube feeding. Subjective: 09/19: Ciarra called secondary to aspiration on Gen. medical floor. Transfer to ICU and placed on mechanical ventilation. ABG shows CO2 retention. Etc. revealed no acute cardiac 20 finds however copious message to feed suctioned from trach tube 09/20 No events overnight. Afebrile. On ACV with RR 16, TV 500, PEEP: 5 and FIO2 40%. 09/21 No events overnight. Afebrile. 09/22 No events overnight. Tolerated CPAP all day yesterday with PS 12, PEEP:5 and FIO2 35%. Afebrile. 09/23 No events overnight. On no sedation Tolerated CPAP yesterday. Had T:100.3 last night. 09/24 Patient tolerated TP's x 6 hrs yesterday On CPAP 12/5 with 35% FIO2 overnight. Afebrile. 09/25 No events overnight. On CPAP overnight and TP's during day. Tolerating tube feeds. 10/11 Reconsult: Ciarra was called as patient was found hypotensive with SBP 80' s and tube feeds coming from trach site. Patient is receiving 1L bolus NS and STAT CXR showed mild pulm edema. On arrival to ICU patient was connected to ventilator ( On ACV RR 16, TV 500, PEEP:5 and FIO2 40% with sats 95%. Current BP 125/91 , P:81 10/12 Patient remains on ventilator overnight. Borderline low BP with MAP ranges 67-72. Afebrile. On no sedation. 10/13 Patient is on ventilator via trach, afebrile, WBC trending down. Patient was hypotensive yesterday responded to fluid resuscitation not on any pressors. 10/14: No acute events overnight. WBC count has normalized. Will start SBT as tolerated. CXR in am 10/15 No acute events overnight. Phosphorus low needs replacement. Otherwise neuro exam remains unchanged. remains on CPAP 10/16 Patient remains on ventilator via trach. On no sedation. Afebrile. 10/17 No acute events overnight. On ventilator via trach. Afebrile. 10/18 Tolerates CPAP, but unable to wean further. Otherwise no acute events overnight, remains afebrile 10/19 Patient is on ventilator via trach, UO 175ml in last 7 hrs. Afebrile. Tolerated CPAP x 6 hrs yesterday. 10/20 No acute events overnight. Tolerated CPAP for several hrs yesterday. Afebrile. UO better ( 1275ml in 24hrs). Given 1L NS total yesterday for decrease UO. 10/21 Patient is on ventilator via trach tolerated CPAP for most of day yesterday. Afebrile. Tolerating tube feeds. 10/22 No acute events overnight. Patient was on CPAP all day yesterday. Afebrile. Objective - Vital Signs Date Time Temp Pulse Resp B/P Pulse Ox O2 Delivery O2 Flow Rate FiO2 10/23/15 07:55 35 10/23/15 07:55 99 10/23/15 06:00 78 10/23/15 04:00 98.0 28 122/87 10/22/15 07:55 Ventilator Intake and Output 10/22/15 10/22/15 10/23/15 08:00 16:00 00:00 Intake Total 696 ml 911 ml 755 ml Output Total 775 ml 700 ml 1200 ml Balance -79 ml 211 ml -445 ml Result Diagram: 10/23/15 0610/23/15 06 Other Results Laboratory Tests Test 10/23/15 06:05 White Blood Count 10.1 TH/MM3 Red Blood Count 4.07 MIL/MM3 Hemoglobin 10.9 GM/DL Hematocrit 33.4 % Mean Corpuscular Volume 81.9 FL Mean Corpuscular Hemoglobin 26.9 PG Mean Corpuscular Hemoglobin 32.8 % Concent Red Cell Distribution Width 18.4 % Platelet Count 225 TH/MM3 Mean Platelet Volume 9.9 FL Neutrophils (%) (Auto) 77.0 % Lymphocytes (%) (Auto) 16.2 % Monocytes (%) (Auto) 6.2 % Eosinophils (%) (Auto) 0.4 % Basophils (%) (Auto) 0.2 % Neutrophils # (Auto) 7.8 TH/MM3 Lymphocytes # (Auto) 1.6 TH/MM3 Monocytes # (Auto) 0.6 TH/MM3 Eosinophils # (Auto) 0.0 TH/MM3 Basophils # (Auto) 0.0 TH/MM3 CBC Comment DIFF FINAL Differential Comment Sodium Level 138 MEQ/L Potassium Level 3.9 MEQ/L Chloride Level 101 MEQ/L Carbon Dioxide Level 30.6 MEQ/L Anion Gap 6 MEQ/L Blood Urea Nitrogen 18 MG/DL Creatinine 0.30 MG/DL Estimat Glomerular Filtration 315 ML/MIN Rate Random Glucose 146 MG/DL Calcium Level 9.2 MG/DL Phosphorus Level 1.9 MG/DL Magnesium Level 2.2 MG/DL Imaging Last Impressions Chest X-Ray 10/19/15 0000 Signed Impressions: Service Date/Time: Monday, October 19, 2015 12:15 - CONCLUSION: No acute pulmonary infiltrates. Ilir Agosto MD Upper Extremity Ultrasound 10/13/15 0000 Signed Impressions: Service Date/Time: Tuesday, October 13, 2015 09:51 - CONCLUSION: 1. No evidence of deep venous thrombosis. John Anderson MD Abdomen X-Ray 10/12/15 0000 Signed Impressions: Service Date/Time: Monday, October 12, 2015 17:37 - CONCLUSION: 1. Gastrostomy tube in place 2. Unremarkable bowel gas pattern. Salazar Thurman MD Renal Ultrasound 10/07/15 0000 Signed Impressions: Service Date/Time: Wednesday, October 07, 2015 18:29 - CONCLUSION: 1. No acute findings. 3.6 cm left renal cyst. Putnam catheter in bladder. Amaury Ellsworth MD Tunnelled Chest Tube Removal 08/05/15 1100 Signed Impressions: Service Date/Time: Wednesday, August 05, 2015 11:00 - CONCLUSION: Uncomplicated chest tube removal. Blaine Jackson MD Chest Tube Change 07/31/15 0000 Signed Impressions: Service Date/Time: Friday, July 31, 2015 14:34 - CONCLUSION: Uncomplicated reposition of previously placed chest tube as above. Blaine Jackson MD Chest Tube Insertion 07/30/15 0000 Signed Impressions: Service Date/Time: July 14:50 - CONCLUSION: Uncomplicated chest tube placement as above. Blaine Jackson MD Catheter Change 07/27/15 0000 Signed Impressions: Service Date/Time: Monday, July 27, 2015 14:43 - CONCLUSION: Uncomplicated gastrostomy tube exchange as above. Blaine Jackson MD Chest CT 07/11/15 0000 Signed Impressions: Service Date/Time: Saturday, July 11, 2015 09:49 - CONCLUSION: Scattered patchy densities significantly improved from previous study. Tiny anterior right basilar pneumothorax. Right-sided chest tube in good position. Néstor Matamoros MD Head CT 06/18/151902 Signed Impressions: Service Date/Time: June 19:31 - CONCLUSION: Diffuse atrophy unchanged. No acute intracranial findings. Kush Briscoe MD Abdomen/Pelvis CT 06/18/151902 Signed Impressions: Service Date/Time: June 19:36 - CONCLUSION: 1. Chronic nonspecific urinary bladder wall thickening. Bladder collapsed with Putnam catheter in place. 2. Chronic bilateral mid to lower lung zone groundglass opacity. 3. Nonobstructing left renal calculus. 4. Distended rectum. Kush Briscoe MD Objective Remarks GENERAL: 54-year-old male, cachectic, debilitated with contractures on ventilator via trach. HEENT: NC/AT. PERRL. MMM. OP without erythema or exudates NECK: No JVD. Supple. 8.0 Distal XLT trach in place CARDIAC: RRR. S1/S2. No S4. No murmurs, clicks gallops or rubs. LUNGS: B/L equal air entry ABDOMEN: S/NT/ND. Positive BS EXTREMITIES: 1+ dependent pedal edema. Contractures and deformities of fingers. Stage III coccyx/sacral decubitus ulcer NEUROLOGY: Patient with significant contractures of the bilateral lower extremity, upper extremities. Eyes open spontaneously. Temporal and facial muscle wasting, muscular atrophy all extremities. Procedures 07/26- PEG replacement 07/29- right pigtail catheter placement for new pneumothorax Date of Insertion: Oct 05, 2015 A/P Assessment and Plan Neuro/Psych: Parkinson's disease Cognitive disorder not otherwise specified Chronic encephalopathy Dementia Depression Contractures On no sedation, monitor neuro status. CT head 06/18/15: - diffuse atrophy unchanged. No acute intracranial findings Continue Sinemet 25/100 q8 via PEG, Seroquel 50 mg twice a day, olanzapine 5 mg a night, Klonopin 2 mg every 8 hours, Paxil 20 daily Continue Lortab when necessary pain and fentanyl patch 50 g every 3 days for pain management. Fentanyl bolus prn breakthrough pain or if needed for turning/ nursing care/etc. Resp: Acute on chronic respiratory failure Chronic trach #8 Shiley distal XLT Pneumonia, aspiration (ESBL Klebsiella and Pseudomonas pneumonia) Right pneumothorax status post pigtail catheter 2 (resolved) Continue with vent support keep sat >90%. Ventilator bundle, pulm toilet, trach care, daily SBT, TP if patient tolerates Pulmonary Dr. Restrepo following. On Prednisone 60mg daily Exchanged to 8 Distal XLT on 08/15 to facilitate suctioning, trach care. Bronchodilators ( DuoNeb) CXR 10/18: No acute pulmonary infiltrates Cardiac History of orthostasis History of CAD History dyslipidemia History of hypertension Continue Midodrine 5 mg BID Monitor HR and BP keep MAP>65mmHg. GI: Chronic moderate protein energy malnutrition Dysphagia Status post PEG Internal hemorrhoids Gastroesophageal reflux disease - On TF Jevity 1.5 @60ml/hr, on Reglan 5mg Q8 PRN for high residuals. - On Prevacid 30 mg per PEG tube daily for GERD - 10/11 KUB abdomen: PEG tube in place. Unremarkable bowel gas pattern. FEN/Renal: Nonobstructing left renal calculus - Monitor renal function, I/O's. electrolytes replacement per protocol. Will need Phos replacement today. ID: Sepsis Aspiration pneumonia Cele UTI 10/19 Sputum: Pseudomonas- likely colonized 10/19 urine cx: Yeast species 10/12 BC: NGTD 10/11 BC: NGTD 10/11 Urine cx: C. Tropicalis 10/11 Sputum: ESBL Klebsiella and Pseudomonas pneumonia 10/10 Urine: C. Tropicalis 09/21 Urine cx: Pseudomonas ? colonized 09/19 Sputum cx: Pseudomonas, Kleb pneumonia ESBL pos Candiduria (cele tropicalis urine cx 08/17) ESBL positive Klebsiella/Pseudomonas pneumonia Stenotrophomonas in sputum 08/17 MRSA colonization sepsis UTI Klebsiella ESBL positive (has been treated) Continue with abx ( Merrem) stop after today's dose per ID ( to finish 10 day course) monitor for signs of infections ( Fever, WBC) ID service is following- Dr. Enoc Moss. Endo: On SSI ( medium) with accuchecks Q6. Heme Normocytic Anemia - Monitor CBC MSK Bilateral lower extremity Contractures Stage III sacral decubitus present on admission - Wound care and PT on case Prophylaxis - GI - Prevacid - DVT - SCDs/ Lovenox. ACCESS: PIVs Level 3 Antonio Carr MD Oct 23, 2015 08:18
[2015-10-23] MEDS: COLLAGENASE OINT 30 GM TUBE TOP SCH (09:00)
[2015-10-23] MEDS: MIDODRINE 5 MG TAB G-TUBE SCH ×2 (09:01→21:25)
[2015-10-23] MEDS: QUEtiapine FUMARATE 25 MG TAB G-TUBE SCH ×2 (09:01→21:25)
[2015-10-23] MEDS: predniSONE 20 MG TAB PO SCH (09:01)
[2015-10-23] MEDS: GABAPENTIN 300 MG CAP G-TUBE SCH ×2 (09:01→21:26)
[2015-10-23] MEDS: PARoxetine HCL 20 MG TAB G-TUBE SCH (09:02)
[2015-10-23] MEDS: LANSOPRAZOLE SOLUTAB 30 MG TAB NG SCH (09:02)
[2015-10-23] MEDS: ARTIFICIAL TEARS OPTH SOLN 15 ML BTL EACH EYE SCH ×3 (09:02→17:29)
[2015-10-23] MEDS: LACTOBACILLUS ACIDOPHILUS TAB PO SCH ×3 (09:02→17:28)
[2015-10-23] MEDS: SODIUM PHOSPHATE INJ 30 MMOL in SODIUM CHLOR 0.9% 250 ML INJ 240 ML IV PRN (09:03)
[2015-10-23] MEDS: SODIUM CHLORIDE 0.9% FLUSH 5 ML FLUSH IVF SCH ×2 (09:12→21:26)
[2015-10-23] MEDS: LORazepam 2 MG/ML VIAL IVP PRN (09:12)
--- NOTE | 2015-10-23 14:43 | HHI.HCPN ---
Reason for visit a. To assist with evaluation and management of symptoms including: secretions, dyspnea. b. To assist medical decision maker(s) with: better understanding of current medical conditions; weighing benefits/burdens of medical treatment options; making medical treatment decisions. . Subjective/Interval History Patient seen and examined in ICU. No family at bedside .Also present Sulma Taylor LCSW and nurse, Madeleine. Patient on CPAP. Eyes open, not tracking. Appears to attempt to mouth words? briefly, unable to determine if he really is. Vital signs stable. Afebrile. Labs stable. 10/20/15 - Sputum culture + pseudomonas aeruginosa and urine culture + cele tropicalis. Nursing pain level scores are "0." One dose of PRN Morphine given 10/21/15, none recent. From Dr. Pickard's initial palliative care consultation of 07/15/15... This is the 5th [facility] admission in the last 10 months for this unfortunate 54 y/o male [facility] resident with advanced Parkinson's disease ; dementia; tracheostomy and PEG tube who was sent to the ED from his facility on 06/18/15 because of fevers, labored breathing, worsening mental status; and purulent looking sputum at the trach site. The patient has had multiple hospitalizations which included stays in the intensive care unit for various infections. He had a urinary tract infection with multidrug resistant ESBL on 02/19/15. He was last MRSA positive on . long term notes from the facility indicate that his current baseline is: * Bedbound status * Unable to communicate * NPO -- on tube feedings at 85 cc /hr * Dependent for all ADLs In the emergency Department, initial vital signs were as follows > temperature 100.9; pulse 98; respiratory rate 38; blood pressure 104/61; pulse oximetry 99% on room air via trach collar. Initial physical examination the emergency department revealed the following > patient was frail and chronically ill-appearing. Skin showed no obvious wounds. Head, eyes, ENT, neck, cardiovascular, respiratory, gastrointestinal exams were unremarkable. Neurologically, the patient was unable to answer questions or respond or follow commands. Initial diagnostic testing revealed the following: * CBC showed WBC 16.4; hemoglobin 11.3; platelet count 176 * Coagulation profile showed PT 11.4; INR 1.1; PTT 29.4 * Chemistry profile showed sodium 141; potassium 4.5; chloride 105; CO2 27.4; anion gap 9; BUN 21; creatinine 0.85; estimated GFR 95; glucose 116; calcium 9.6 * Liver function tests showed total bilirubin 0.6; AST 23; ALT 38; alkaline phosphatase 59; total protein 7.5; albumen 3.2 * Urinalysis was remarkable for large occult blood; large leukocyte esterase; few bacteria; few yeast with hyphae; few budding yeast. * Arterial blood gases on trach mask at 40% showed pH 7.53; PCO2 33; PaO2 108; bicarbonate 27; base excess 4.2 * Chest x-ray showed no acute cardiopulmonary disease * Head CT showed diffuse atrophy unchanged from prior exam. * CT of the abdomen and pelvis showed chronic nonspecific urinary bladder wall thickening; bladder collapsed with Valdez catheter in place; chronic bilateral mid to lower lung zone groundglass opacity; nonobstructing left renal calculus; distended rectum. * The emergency room doctor diagnosed severe sepsis. The patient was given 2 L of IV fluid and broad-spectrum antibiotic-coated verge in the emergency department. Cultures were obtained. Valdez catheter was changed. As the patient was markedly tachypneic with increased work of breathing and use of accessory muscles during his stay in the emergency department. He was placed on CPAP and subsequently intubated and placed on mechanical ventilation. Critical care was consulted and the patient was admitted to the intensive care unit. Further examination revealed a stage II 6 x 2 cm sacral wound. Urine culture on admission grew out Cele of 2 different species. Sputum culture grew out Klebsiella pneumonia ESBL positive as well as pseudomonas. Blood culture grew out coag-negative staph and staph epidermidis. Both infectious disease and pulmonology were consulted. The patient slowly improved, was extubated, and critical care signed off on . However, on 07/06 the patient had to be placed back on the ventilator. A right sided pneumothorax was noted and patient underwent chest tube placement by interventional radiology. Pneumothorax has appeared to resolve on most recent chest x-ray. Sputum, blood, and urine cultures from 07/07/15 are all negative. White blood count is currently down to 7. Hemoglobin is 10.6. Albumen is suboptimal at 3.0. Renal function is normal. He is currently off anti-biotics. Current pain regimen includes the following: * Fentanyl patch; 50 g per hour * Morphine sulfate 5 mg sublingually or via the tube every 4 hours when necessary (he has been using 1-2 doses of this per day) The patient was tolerating CPAP earlier today and has since been removed from the ventilator and is on a T-piece at 40% FI02. At time of my visit, eyes are open. He intermittently tracks. He cannot follow commands and makes no attempt to interact. . Advance Directives Living Will: Never completed Health Care Surrogate: Copy in medical record Durable Power of Lithoplate Maker: Never completed Advance Directive Specifics Date completed: Patient visited Scott Mack, Lithoplate Maker in March and again in November 2014. The patient was encouraged to complete Advance directive documents but never did them. Dr. Pickard personally called Mr. Mack ([phone]) to check for advance directives. Health Care Surrogate(s): The patient completed a health care surrogate document dated 09/02/14 desigating his friend Bola Nolasco as surrogate. Mr. Nolasco was not aware of this and has declined serving in that capacity. The patient has an adult daughter -- Radha Foreman who is willing to serve as health care proxy decision maker. Patient's mother, Teresa is aware. Significant change in goals: NO CODE. Goals aggressive short of NO CODE. . Objective Vital Signs Date Time Temp Pulse Resp B/P Pulse Ox O2 Delivery O2 Flow Rate FiO2 10/23/15 12:00 35 10/23/15 12:00 98.6 94 30 120/82 96 10/23/15 12:00 94 10/23/15 10:42 92 35 10/23/15 10:00 93 10/23/15 08:00 98.6 87 29 121/86 100 10/23/15 08:00 35 10/23/15 08:00 87 10/23/15 07:55 35 10/23/15 07:55 99 35 10/23/15 06:00 78 10/23/15 04:15 99 35 10/23/15 04:00 84 10/23/15 04:00 98.0 84 28 122/87 100 10/23/15 04:00 35 10/23/15 02:00 81 10/23/15 01:03 99 35 10/23/15 00:00 35 10/23/15 00:00 97.8 84 18 114/78 100 10/23/15 00:00 84 10/22/15 23:17 99 35 10/22/15 21:13 100 35 10/22/15 20:00 97.7 85 29 129/90 100 10/22/15 20:00 85 10/22/15 20:00 35 10/22/15 18:00 91 10/22/15 17:37 100 35 10/22/15 16:00 85 10/22/15 16:00 98.6 89 32 112/80 100 10/22/15 16:00 35 Intake & Output 10/23/15 10/23/15 07:00 19:00 Intake Total 1425 ml Output Total 1150 ml Balance 275 ml Intake Oral 0 ml IV Total 375 ml Tube Feeding 810 ml Other 240 ml Output Urine Total 1150 ml # Bowel Movements 4 Physical Exam CONSTITUTIONAL/GENERAL: This is a thin, pale, contracted, chronically ill appearing male on [facility] vent to trach. Unresponsive. TUBES/LINES/DRAINS: Trach; valdez cath, PIVs left, PEG tube; scd's SKIN: No jaundice, rashes, or lesions. Sacral wound, not visualized today. NECK: Tracheostomy to vent. CARDIOVASCULAR: Regular rate and rhythm without murmurs, gallops, or rubs. No JVD. Peripheral pulses symmetric. RESPIRATORY/CHEST: Scattered course breath sounds. Breath sounds equal bilaterally and diminished at bases. GASTROINTESTINAL: Abdomen soft, non-tender, nondistended. No guarding. Bowel sounds present. GENITOURINARY: Without palpable bladder distension. catheter in place. MUSCULOSKELETAL: Contractures noted. No mottling. NEUROLOGICAL: Does not open eyes to voice or command. Unresponsive. Unable to follow even simple commands. No spontaneous movements seen. PSYCHIATRIC: Unresponsive. . Diagnostic Tests Laboratory Laboratory Tests Test 10/21/15 10/22/15 10/23/15 04:26 06:35 06:05 White Blood Count 10.4 TH/MM3 11.0 TH/MM3 10.1 TH/MM3 (4.0-11.0) (4.0-11.0) (4.0-11.0) Red Blood Count 4.01 MIL/MM3 4.19 MIL/MM3 4.07 MIL/MM3 (4.50-5.90) (4.50-5.90) (4.50-5.90) Hemoglobin 10.6 GM/DL 11.1 GM/DL 10.9 GM/DL (13.0-17.0) (13.0-17.0) (13.0-17.0) Hematocrit 32.8 % 34.6 % 33.4 % (39.0-51.0) (39.0-51.0) (39.0-51.0) Mean Corpuscular Volume 81.9 FL 82.5 FL 81.9 FL (80.0-100.0) (80.0-100.0) (80.0-100.0) Mean Corpuscular Hemoglobin 26.4 PG 26.6 PG 26.9 PG (27.0-34.0) (27.0-34.0) (27.0-34.0) Mean Corpuscular Hemoglobin 32.2 % 32.2 % 32.8 % Concent (32.0-36.0) (32.0-36.0) (32.0-36.0) Red Cell Distribution Width 18.5 % 18.5 % 18.4 % (11.6-17.2) (11.6-17.2) (11.6-17.2) Platelet Count 214 TH/MM3 218 TH/MM3 225 TH/MM3 (150-450) (150-450) (150-450) Mean Platelet Volume 9.6 FL 9.8 FL 9.9 FL (7.0-11.0) (7.0-11.0) (7.0-11.0) Neutrophils (%) (Auto) 80.9 % 80.1 % 77.0 % (16.0-70.0) (16.0-70.0) (16.0-70.0) Lymphocytes (%) (Auto) 12.7 % 14.0 % 16.2 % (9.0-44.0) (9.0-44.0) (9.0-44.0) Monocytes (%) (Auto) 6.2 % (0.0-8.0) 5.4 % (0.0-8.0) 6.2 % (0.0-8.0) Eosinophils (%) (Auto) 0.2 % (0.0-4.0) 0.5 % (0.0-4.0) 0.4 % (0.0-4.0) Basophils (%) (Auto) 0.0 % (0.0-2.0) 0.0 % (0.0-2.0) 0.2 % (0.0-2.0) Neutrophils # (Auto) 8.4 TH/MM3 8.8 TH/MM3 7.8 TH/MM3 (1.8-7.7) (1.8-7.7) (1.8-7.7) Lymphocytes # (Auto) 1.3 TH/MM3 1.5 TH/MM3 1.6 TH/MM3 (1.0-4.8) (1.0-4.8) (1.0-4.8) Monocytes # (Auto) 0.6 TH/MM3 0.6 TH/MM3 0.6 TH/MM3 (0-0.9) (0-0.9) (0-0.9) Eosinophils # (Auto) 0.0 TH/MM3 0.1 TH/MM3 0.0 TH/MM3 (0-0.4) (0-0.4) (0-0.4) Basophils # (Auto) 0.0 TH/MM3 0.0 TH/MM3 0.0 TH/MM3 (0-0.2) (0-0.2) (0-0.2) CBC Comment DIFF FINAL DIFF FINAL DIFF FINAL Differential Comment Sodium Level 137 MEQ/L 139 MEQ/L 138 MEQ/L (136-145) (136-145) (136-145) Potassium Level 3.7 MEQ/L 3.3 MEQ/L 3.9 MEQ/L (3.5-5.1) (3.5-5.1) (3.5-5.1) Chloride Level 97 MEQ/L 99 MEQ/L 101 MEQ/L (98-107) (98-107) (98-107) Carbon Dioxide Level 32.0 MEQ/L 33.0 MEQ/L 30.6 MEQ/L (21.0-32.0) (21.0-32.0) (21.0-32.0) Anion Gap 8 MEQ/L (5-15) 7 MEQ/L (5-15) 6 MEQ/L (5-15) Blood Urea Nitrogen 20 MG/DL (7-18) 20 MG/DL (7-18) 18 MG/DL (7-18) Creatinine 0.33 MG/DL 0.30 MG/DL 0.30 MG/DL (0.60-1.30) (0.60-1.30) (0.60-1.30) Estimat Glomerular Filtration 282 ML/MIN 315 ML/MIN 315 ML/MIN Rate (>89) (>89) (>89) Random Glucose 103 MG/DL 127 MG/DL 146 MG/DL (74-106) (74-106) (74-106) Calcium Level 8.9 MG/DL 8.7 MG/DL 9.2 MG/DL (8.5-10.1) (8.5-10.1) (8.5-10.1) Phosphorus Level 2.3 MG/DL 1.9 MG/DL (2.5-4.9) (2.5-4.9) Magnesium Level 2.2 MG/DL (1.5-2.5) Result Diagram: 10/23/1560410/23/15604 Microbiology Microbiology Date/Time Procedure Status Source Growth 10/20/15 13:20 Gram Stain - Final Complete Sputum Endotracheal 10/20/15 13:20 Sputum Culture - Final Complete Pseudomonas Aeruginosa 10/20/15 12:38 Urine Culture - Final Complete Urine Catheterized Urine Cele Tropicalis Imaging Last Impressions Chest X-Ray 10/19/15 0000 Signed Impressions: Service Date/Time: Monday, October 19, 2015 12:15 - CONCLUSION: No acute pulmonary infiltrates. Ilir Agosto MD Upper Extremity Ultrasound 10/13/15 0000 Signed Impressions: Service Date/Time: Tuesday, October 13, 2015 09:51 - CONCLUSION: 1. No evidence of deep venous thrombosis. John Anderson MD Abdomen X-Ray 10/12/15 0000 Signed Impressions: Service Date/Time: Monday, October 12, 2015 17:37 - CONCLUSION: 1. Gastrostomy tube in place 2. Unremarkable bowel gas pattern. Salazar Thurman MD Renal Ultrasound 10/07/15 0000 Signed Impressions: Service Date/Time: Wednesday, October 07, 2015 18:29 - CONCLUSION: 1. No acute findings. 3.6 cm left renal cyst. Valdez catheter in bladder. Amaury Ellsworth MD Tunnelled Chest Tube Removal 08/05/15 1100 Signed Impressions: Service Date/Time: Wednesday, August 05, 2015 11:00 - CONCLUSION: Uncomplicated chest tube removal. Blaine Jackson MD Chest Tube Change 07/31/15 0000 Signed Impressions: Service Date/Time: Friday, July 31, 2015 14:34 - CONCLUSION: Uncomplicated reposition of previously placed chest tube as above. Blaine Jackson MD Chest Tube Insertion 07/30/15 0000 Signed Impressions: Service Date/Time: July 14:50 - CONCLUSION: Uncomplicated chest tube placement as above. Blaine Jackson MD Catheter Change 07/27/15 0000 Signed Impressions: Service Date/Time: Monday, July 27, 2015 14:43 - CONCLUSION: Uncomplicated gastrostomy tube exchange as above. Blaine Jackson MD Chest CT 07/11/15 0000 Signed Impressions: Service Date/Time: Saturday, July 11, 2015 09:49 - CONCLUSION: Scattered patchy densities significantly improved from previous study. Tiny anterior right basilar pneumothorax. Right-sided chest tube in good position. Néstor Matamoros MD Head CT 06/18/151902 Signed Impressions: Service Date/Time: June 19:31 - CONCLUSION: Diffuse atrophy unchanged. No acute intracranial findings. Kush Briscoe MD Abdomen/Pelvis CT 06/18/151902 Signed Impressions: Service Date/Time: June 19:36 - CONCLUSION: 1. Chronic nonspecific urinary bladder wall thickening. Bladder collapsed with Valdez catheter in place. 2. Chronic bilateral mid to lower lung zone groundglass opacity. 3. Nonobstructing left renal calculus. 4. Distended rectum. Kush Briscoe MD Procedures * Mechanical ventilation * Chest tube placement on right 07/07/15 * Chest tube removal 07/17/15 . Assessment and Plan Disease Oriented Problem List: (1) Acute respiratory failure Comment: 10/13/15 - Halicat for hypotension and tube feeding coming from trach. - Back on mech vent in ICU. . (2) Chronic respiratory failure (3) Septic shock (4) Pneumonia Comment: Aspiration. Repeat cultures pending. . (5) UTI (urinary tract infection) Comment: Repeat culture pending. . (6) Parkinson disease (7) Moderate malnutrition Symptom Scale: (1) Pain 0-10 Scale: Unable to quantify Comment: Sources of pain might include wound, prolonged bedbound status, contractures, restraints, valdez, vascular access catheters. Appears comfortable on current regimen. ,l (2) Dyspnea 0-10 Scale: Unable to quantify Comment: On mech vent. . (3) Malnutrition 0-10 Scale: Unable to quantify Comment: Tolerating tube feedings. . (4) Encephalopathy 0-10 Scale: Unable to quantify Comment: Remains unresponsive. Pertinent Non-Medical Issues Psychosocial: [facility]. 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 Severe dementia. Daughter, mother, and brother are involved. Spiritual: [employer]. Has been a member for the [facility] [employer] and members have provided both community support and spiritual support in the past. Legal: No advance directives. Daughter (Radha Foreman) is legal proxy and lives 4 hours away. She can be quite difficult to contact by phone. Ethical issues impacting care: None. . Important Contacts * Radha Foreman (daughter and proxy) [phone] * Teresa Perea (mother -- lives in [place]) [phone] . Prognosis Patient has end stage Parkinson's with end stage dementia. [facility] and has required multiple hospitalizations for sepsis. He is a chronic trach/PEG tube patient with contractures and skin breakdown. Should family continue to want aggressive care, he will continue to go back and forth from facility to hospital until such time that we are no longer able to overcome the sepsis. Patient is hospice eligible whenever family is ready to transition to "comfort measures only." . Code Status: No Code Plan * Decision making: Patient is incapacitated and will not regain capacity. There is no designated health care surrogate. Daughter, Radha Foreman, is legal proxy under [place] statutes but can be hard to contact at times. * NO CODE * Goals aggressive short of NO CODE at this time. * Pain: Sources of pain are unclear as patient in non communicative, but would include prolonged bedbound status; tubes and lines; contractures; wound; etc. Current regimen appears to adequate . No further recommendations at this time. * Dyspnea: Dyspnea due to aspiration pneumonia. Has previously been challenging to get off vent. * Malnutrition: Tolerating tube feeds, but albumin remains low. * Secretions: PRN Levsin available. Remains high risk for aspiration due to secretions and tube feeding. * Palliative care will try and meet with Radha (proxy) in person when she next comes to visit. She continues to insist on aggressive goals in spite of the incredibly bleak prognosis. . . Attestation To help prompt me to consider important information that might be impacting today's encounter and assessment, information from prior notes written by myself or my colleagues may have been "brought forward" into today's note. My signature on this note, however, is an attestation that I personally performed the exam, history, and/or decision-making noted today, and, unless otherwise indicated, the interactions with patient, family, and staff as well as the review of records all occurred today. I also attest that the listed assessment and stated plan reflect my best clinical judgment today based on the combination of historical information, prior notes, and today's exam/ interactions. When time spent is documented, it refers only to time spent today by the signer, or if indicated, combined time spent today by collaborating physician/nurse practitioner. ALOK JONES Oct 23, 2015 14:43
--- NOTE | 2015-10-23 18:02 | HHI.PR ---
Subjective Remarks 54 YOWM with ChRF,Trach, multiple uti No fever Gets anxious. No Fever Mod amount of trach secretions. tolerating CPAP Tolerates TF Started Meropenem for Pseudomonas inf Objective Vital Signs Vital Signs Date Time Temp Pulse Resp B/P Pulse Ox O2 Delivery O2 Flow Rate FiO2 10/23/15 16:00 35 10/23/15 16:00 94 10/23/15 16:00 99.0 94 31 112/75 97 10/23/15 15:48 96 35 10/23/15 14:00 82 10/23/15 12:00 35 10/23/15 12:00 98.6 94 30 120/82 96 10/23/15 12:00 94 10/23/15 10:42 92 35 10/23/15 10:00 93 10/23/15 08:00 98.6 87 29 121/86 100 10/23/15 08:00 35 10/23/15 08:00 87 10/23/15 07:55 35 10/23/15 07:55 99 35 10/23/15 06:00 78 10/23/15 04:15 99 35 10/23/15 04:00 84 10/23/15 04:00 98.0 84 28 122/87 100 10/23/15 04:00 35 10/23/15 02:00 81 10/23/15 01:03 99 35 10/23/15 00:00 35 10/23/15 00:00 97.8 84 18 114/78 100 10/23/15 00:00 84 10/22/15 23:17 99 35 10/22/15 21:13 100 35 10/22/15 20:00 97.7 85 29 129/90 100 10/22/15 20:00 85 10/22/15 20:00 35 I/O 10/22/15 10/22/15 10/22/15 10/23/15 10/23/15 10/23/15 07:00 15:00 23:00 07:00 15:00 23:00 Intake Total 696 ml 911 ml 755 ml 670 ml 810 ml Output Total 775 ml 700 ml 1200 ml 550 ml 450 ml Balance -79 ml 211 ml -445 ml 120 ml 360 ml Intake Oral 0 ml 0 ml 0 ml IV Total 177 ml 342 ml 275 ml 100 ml 322 ml Tube Feeding 399 ml 449 ml 360 ml 450 ml 388 ml Tube Irrigant 100 ml Other 120 ml 120 ml 120 ml 120 ml Output Urine Total 775 ml 700 ml 1200 ml 550 ml 450 ml # Bowel Movements 1 1 2 2 3 Result Diagram: 10/23/1560410/23/15604 Objective Remarks GENERAL: MBMN male on Vent. SKIN: Warm and dry. HEAD: Normocephalic. EYES: No scleral icterus. No injection or drainage. NECK: Supple, trachea midline. No JVD or lymphadenopathy. has trach CARDIOVASCULAR: Regular rate and rhythm without murmurs, gallops, or rubs. RESPIRATORY: Breath sounds equal bilaterally. No accessory muscle use. GASTROINTESTINAL: Abdomen soft, non-tender, nondistended. PEG tube in place MUSCULOSKELETAL: No cyanosis, or edema. BACK: Nontender without obvious deformity. No CVA tenderness. A/P Assessment and Plan VDRF S/P Trach Parkinson's diasease Dementia Aspiration PLAN: TF Cont CPAP Abx Per ID ACV prn sob, techypnoea. Trach care Severiano Michael IV, MD Oct 23, 2015 18:02
[2015-10-23] MEDS: ENOXAPARIN SODIUM 40 MG/0.4 ML SYRINGE SQ SCH (21:24)
[2015-10-23] MEDS: OLANZapine 5 MG TAB GT SCH (21:25)
[2015-10-24] VITALS (18 sets, daily range): BP systolic 98–131; BP diastolic 66–102; PULSE 77–112; RESP 10–32; TEMP 98.3–98.9; O2SAT 98–100
[2015-10-24] MEDS: MEROPENEM INJ 1,000 MG in SODIUM CHLORIDE 0.9% INJ 100 ML IV SCH (05:02)
[2015-10-24] MEDS: clonazePAM 1 MG TAB PO SCH ×3 (05:02→20:05)
[2015-10-24] MEDS: CARBIDOPA/LEVODOPA 25 MG/100 MG TAB GT SCH ×3 (05:02→23:54)
[2015-10-24] MEDS: INSULIN NovoLIN REGULAR SUPPLEMENTAL SCALE SQ SCH ×5 (06:00→23:54)
[2015-10-24 07:05] LABS: AUTOMATED NEUTROPHIL # 7.9 TH/MM3 (1.8-7.7); BASOPHIL % 0.3 % (0.0-2.0); EOSINOPHIL # 0.2 TH/MM3 (0-0.4); EOSINOPHIL % 1.8 % (0.0-4.0); HEMATOCRIT 34.6 % (39.0-51.0); HEMO FLAGS DIFF FINAL; LYMPH % 19.8 % (9.0-44.0); LYMPHOCYTE # 2.2 TH/MM3 (1.0-4.8); MEAN CELL VOLUME 82.2 FL (80.0-100.0); MEAN CORPUSCULAR HEMOGLOBIN 26.5 PG (27.0-34.0); MEAN CORPUSCULAR HGB CONC 32.2 % (32.0-36.0); MONO % 5.9 % (0.0-8.0); NEUT % 72.2 % (16.0-70.0); PLATELET COUNT 225 TH/MM3 (150-450); RED CELL DISTRIBUTION WIDTH 18.8 % (11.6-17.2); WHITE BLOOD COUNT 10.9 TH/MM3 (4.0-11.0)
[2015-10-24 07:48] LABS: BICARBONATE 30.6 MEQ/L (21.0-32.0); POTASSIUM 4.2 MEQ/L (3.5-5.1)
[2015-10-24] MEDS: REMOVE OLD PATCH TD SCH (08:00)
[2015-10-24] MEDS: predniSONE 20 MG TAB PO SCH (08:51)
[2015-10-24] MEDS: LANSOPRAZOLE SOLUTAB 30 MG TAB NG SCH (08:51)
[2015-10-24] MEDS: GABAPENTIN 300 MG CAP G-TUBE SCH ×2 (08:51→20:05)
[2015-10-24] MEDS: MIDODRINE 5 MG TAB G-TUBE SCH ×2 (08:51→20:06)
[2015-10-24] MEDS: PARoxetine HCL 20 MG TAB G-TUBE SCH (08:51)
[2015-10-24] MEDS: QUEtiapine FUMARATE 25 MG TAB G-TUBE SCH ×2 (08:51→20:05)
[2015-10-24] MEDS: LACTOBACILLUS ACIDOPHILUS TAB PO SCH ×3 (08:51→17:47)
[2015-10-24] MEDS: ARTIFICIAL TEARS OPTH SOLN 15 ML BTL EACH EYE SCH ×3 (08:52→17:46)
[2015-10-24] MEDS: CHLORHEXIDINE 0.12% (ORAL KIT) 15 ML CUP MT SCH ×2 (08:52→20:06)
[2015-10-24] MEDS: SODIUM CHLORIDE 0.9% FLUSH 5 ML FLUSH IVF SCH ×2 (08:54→20:06)
[2015-10-24] MEDS: COLLAGENASE OINT 30 GM TUBE TOP SCH (08:54)
--- NOTE | 2015-10-24 09:12 | HHI.CCPN ---
Subjective Remarks/Hospital Course 06/17: Pt is a 54 yr man with multiple medical problems including Parkinson's disease, advanced dementia, hyponatremia, anxiety, pneumonia, GERD, cognitive disorder, and multidrug resistant UTI- ESBL02/19/15 , who [facility] in a [facility]. Pt by report was found by staff in [facility] to be less alert and having respiratory difficultly and fevers. Pt was brought to ED adn placed on ventilator. His workup was inclusive of labs, chest xray and ct head and abd/pelvis. WBC 16.4, +UTI, lactic acid 4, troponin ,0.02, BUN/ cre 18/ 0.76. CT head 06/18/15: diffuse atrophy unchanged. No acute intracranial findings ct abd/ pelvis with IV contrast: 06/18/15 Conclusion: 1. Chronic nonspecific urinary bladder wall thickening. Bladder collapsed with Putnam catheter in place. 2.Chronic bilateral mid to lower zone groundglass opacity. 3. Nonobstructing left renal calculus. 4. Distended rectum Pt admitted and fluid and abx ordered. 06/18: Drowsy, easily arousable. On mechanical ventilation via tracheostomy. Tachypneic. Resting tremor noted. 06/19: Drowsy, arousable. On mechanical ventilation via tracheostomy. 06/20: Drowsy, arousable. Remains on mechanical ventilation via tracheostomy. We'll repeat blood cultures, UA and urine cultures. Fluconazole IV added in view of yeast in urine. 07/06: Reconsulted as patient return to the ventilator on a right ventricular due to tachypnea. Low-grade temperatures. Tolerating tube feeding. Extremity encephalopathic demented patient with difficult neurological examination. 07/07: Status post chest tube placement by IR for right pneumothorax 07/06. Afebrile. Tolerating tube feeds. Positive BM. Currently tachypneic on the ventilator. Does not appear to be any acute distress. 07/08: Afebrile. Tolerating tube feeding. He is comfortable currently on CPAP trials 11/10. Positive BM. 07/09: Afebrile. Tolerating tube feeding. Appears comfortable on T bar. Positive BM. 07/10: Afebrile. Eyes are open. Remained on T piece overnight. Tolerating tube feeding. 07/11: MAXIMUM TEMPERATURE 100. Currently 98.6. Eyes are open. On ACV overnight secondary to "tachypnea and sweating". Switching back to PSV trials today. Goal is T piece during daytime, CPAP at night. 07/12: No acute events overnight. On PSV 15/5 -attempt TP up to 6 hours today. No pneumothorax on chest x-ray 07/13: Placed back on full ventilator support for tachypnea. Otherwise clinically unchanged. No fever today 07/14: Patient was on T piece yesterday evening, placed back on PSV overnight, patient mechanical ventilation this morning. Patient appears to be struggling with mechanical ventilation. Patient placed back on PSV with improvement 07/15: Patient placed back on mechanical ventilation last evening due to respiratory rate. It was indicated patient was tachypnea can the 40s. Patient on mechanical ventilation this time with respiration rate mid 20s. Chest tube still in place without any output, chest x-ray still indicating resolution of pneumothorax. 07/16: Patient seen and examined today. Patient placed back on mechanical ventilation overnight due to respiratory rate. Even on mechanical ventilation patient has respiration rate in the 30s. Patient afebrile, blood pressure stable. Continue vent weaning 07/17: Patient seen and examined. Currently afebrile. Currently on CPAP 15/5 @ 40%. Patient is awake with open mouth resting in bed in no apparent acute distress. Tolerating tube feeding. 2 bowel movements. 07/18: No neurological changes. Afebrile. 2 bowel moments. Tolerating tube feeding. We'll attempt TP trials today. On CPAP since 07/15 07/19 No events overnight. On CPAP with PS: 10, PEEP: 5 and FIO2 35%. Afebrile. On no sedation. 07/20 No events overnight. Tolerating CPAP. Afebrile. 07/21: Remains on CPAP. Attempt T piece trial today. Afebrile. One bowel movement. Tolerating tube feeding. 07/22: Afebrile. Positive BM. Tolerating tube feeding. Noted switched tracheostomy to #6 Shiley cuffed fenestrated. Neurologically unchanged 07/23: Afebrile. Positive BM. Tolerating tube feeding. Questionable leak in exchange trach. Place back on a rate/ACV overnight. Insufflated seems to be doing better at the present time. Will check chest x-ray. Possible he might need #6 XLT versus replacement of chronic #8 Shiley. 07/24: Tolerating TP today, RR in low 30s patient appears comfortable. No acute events overnight 07/25: Remains off the ventilator more than 36 hours now. Intermittently tachypneic probably breathing. Chest x-ray was clear yesterday. No acute events reported overnight. PEG not functioning per RN 08/02: Patient was transferred back to critical care service due to continuing ventilator management, tachypnea. Patient clinical status with no significant change. Patient with low-grade fever 100.2, 08/03: Patient seen and examined today. No significant change in clinical status. Patient still with chronic tachypnea. Patient afebrile now. 08/04: Patient seen and examined today. No change in clinical status. Patient still continues to have chronic tachypnea. Patient afebrile. Continue vent weaning 08/05: Patient seen and examined today. Patient had chest tube removed yesterday , chest x-ray shows redevelopment of pneumothorax. Chest tube replaced. Otherwise, patient still on ventilator with tachypnea. Afebrile 08/06: Patient seen and examined today. Patient went to have chest tube placed, repeat chest x-ray did not indicate any pneumothorax. No overnight events. We' ll need to pursue LTAC placement 08/07 No events overnight. On ventilator via trach. Afebrile. 08/08 Patient tolerated CPAP x4 hrs yesterday. Afebrile. On no sedation. 08/09 No events overnight. Tolerated CPAP x 12 hrs yesterday. Afebrile. 08/10 Patient tolerated TP's x 12 hrs yesterday back on ACV overnight. 08/11 No events overnight, currently on TP's with 40% FIO2. Afebrile. 08/12 On CPAP 10/5. Tolerated Tpiece 3 hours earlier today. Afebrile. 08/13 On CPAP 10/5. Not tolerating CPAP as well over last few days and RT notes challenge with suctioning respiratory secretions adequately. Discussing with healthcare proxy regarding exchange trach to 8.0. 08/14 Nursing and RT staff having continued difficulty suctioning respiratory secretions via 6.0 tracheostomy. KAREN Garcia did not consent to stoma dilation and trach upsize yesterday but said she would call back and let me know but no return call. Contacted again today and left a message. Afebrile. On CPAP 10/5. Brow furrowing on exam, appears to be in pain but pain not localizable. Tolerating tube feeds, had BM yesterday 08/15 Not tolerating CPAP today. Contacted healthcare surrogate again and discussed need for trach change. She consented and trach was dilated and up- sized to 8.0 Distal XLT to facilitate pulmonary toilet and to address volume leak. 08/16 No events overnight. Remains on ventilator via trach. Afebrile. Tolerating TF. 08/17 No events overnight. Afebrile. 08/18 Patient tolerated CPAP x 4 hrs yesterday. Afebrile.On ventilator via trach. 08/19 On CPAP 25/06. Temp max 99.3 08/20 Stenotrophomonas in sputum, started on Levaquin per ID. Temp max 99.8. On CPAP 20/09. Tube feeds were held because PEG was clogged but now PEG is functioning. 08/21 No events overnight. Afebrile. Remains on ventilator via trach. Has been tolerating CPAP trials for last 2 days. 08/22 No events overnight. Afebrile , Has been on CPAP all night with PS: 20, PEEP; 5 and FIO2 35%. 08/23 No events overnight. Remains on CPAP, T:99.9 08/24 No events overnight. On CPAP PS 10, PEEP; 5 and FIO2 35% overnight. Afebrile. 08/25 No events overnight. Afebrile. On CPAP overnight with PS 8, PEEP: 5 and FIO2 35%, afebrile. Tolerating TF. 08/26 Tolerating Tpiece. 08/27 Tolerated Tpiece yesterday and overnight. However this evening desaturated and was placed back on CPAP. Dr. Mistry attempted to update daughter Radha Foreman and discuss his overall poor prognosis for recovery, but call got disconnected midway through call and could not reach her back 08/28 On PSV 10/5 40% today. Afebrile. 08/29 On CPAP overnight. Now on Tpiece 70% per pulmonology. Increased yellow secretions noted. Temp max 99.1 Nursing staff expresses concern that he appears uncomfortable during all nursing care. Called elsa Garcia to update , no answer, left message to call me. 08/30: On CPAP overnight. Currently on T piece at 45%. Currently afebrile. Positive BM. Tolerating tube feeding. 08/31: On CPAP overnight. Will return T piece at 35%. MAXIMUM TEMPERATURE 99.6. 5 bowel movements. Tolerating tube feeds. Neurological examination unchanged. 09/01: Tmax 99.2. Currently afebrile. Currently in TPs at 35%. 7 bowel movement overnight. Tolerating tube feeding. Subjective: 09/19: Ciarra called secondary to aspiration on Gen. medical floor. Transfer to ICU and placed on mechanical ventilation. ABG shows CO2 retention. Etc. revealed no acute cardiac 20 finds however copious message to feed suctioned from trach tube 09/20 No events overnight. Afebrile. On ACV with RR 16, TV 500, PEEP: 5 and FIO2 40%. 09/21 No events overnight. Afebrile. 09/22 No events overnight. Tolerated CPAP all day yesterday with PS 12, PEEP:5 and FIO2 35%. Afebrile. 09/23 No events overnight. On no sedation Tolerated CPAP yesterday. Had T:100.3 last night. 09/24 Patient tolerated TP's x 6 hrs yesterday On CPAP 12/5 with 35% FIO2 overnight. Afebrile. 09/25 No events overnight. On CPAP overnight and TP's during day. Tolerating tube feeds. 10/11 Reconsult: Ciarra was called as patient was found hypotensive with SBP 80' s and tube feeds coming from trach site. Patient is receiving 1L bolus NS and STAT CXR showed mild pulm edema. On arrival to ICU patient was connected to ventilator ( On ACV RR 16, TV 500, PEEP:5 and FIO2 40% with sats 95%. Current BP 125/91 , P:81 10/12 Patient remains on ventilator overnight. Borderline low BP with MAP ranges 67-72. Afebrile. On no sedation. 10/13 Patient is on ventilator via trach, afebrile, WBC trending down. Patient was hypotensive yesterday responded to fluid resuscitation not on any pressors. 10/14: No acute events overnight. WBC count has normalized. Will start SBT as tolerated. CXR in am 10/15 No acute events overnight. Phosphorus low needs replacement. Otherwise neuro exam remains unchanged. remains on CPAP 10/16 Patient remains on ventilator via trach. On no sedation. Afebrile. 10/17 No acute events overnight. On ventilator via trach. Afebrile. 10/18 Tolerates CPAP, but unable to wean further. Otherwise no acute events overnight, remains afebrile 10/19 Patient is on ventilator via trach, UO 175ml in last 7 hrs. Afebrile. Tolerated CPAP x 6 hrs yesterday. 10/20 No acute events overnight. Tolerated CPAP for several hrs yesterday. Afebrile. UO better ( 1275ml in 24hrs). Given 1L NS total yesterday for decrease UO. 10/21 Patient is on ventilator via trach tolerated CPAP for most of day yesterday. Afebrile. Tolerating tube feeds. 10/22 No acute events overnight. Patient was on CPAP all day yesterday. Afebrile. 10/23 Patient tolerated all day yesterday. On ventilator via trach. Afebrile. Objective - Vital Signs Date Time Temp Pulse Resp B/P Pulse Ox O2 Delivery O2 Flow Rate FiO2 10/24/15 07:35 99 35 10/24/15 06:00 84 10/24/15 04:00 98.9 18 119/83 10/22/15 07:55 Ventilator Intake and Output 10/23/15 10/23/15 10/24/15 08:00 16:00 00:00 Intake Total 670 ml 810 ml 770 ml Output Total 550 ml 450 ml 950 ml Balance 120 ml 360 ml -180 ml Result Diagram: 10/24/15 0618 10/24/15 0618 Other Results Laboratory Tests Test 10/24/15 06:18 White Blood Count 10.9 TH/MM3 Red Blood Count 4.20 MIL/MM3 Hemoglobin 11.1 GM/DL Hematocrit 34.6 % Mean Corpuscular Volume 82.2 FL Mean Corpuscular Hemoglobin 26.5 PG Mean Corpuscular Hemoglobin 32.2 % Concent Red Cell Distribution Width 18.8 % Platelet Count 225 TH/MM3 Mean Platelet Volume 9.9 FL Neutrophils (%) (Auto) 72.2 % Lymphocytes (%) (Auto) 19.8 % Monocytes (%) (Auto) 5.9 % Eosinophils (%) (Auto) 1.8 % Basophils (%) (Auto) 0.3 % Neutrophils # (Auto) 7.9 TH/MM3 Lymphocytes # (Auto) 2.2 TH/MM3 Monocytes # (Auto) 0.6 TH/MM3 Eosinophils # (Auto) 0.2 TH/MM3 Basophils # (Auto) 0.0 TH/MM3 CBC Comment DIFF FINAL Differential Comment Sodium Level 138 MEQ/L Potassium Level 4.2 MEQ/L Chloride Level 102 MEQ/L Carbon Dioxide Level 30.6 MEQ/L Anion Gap 5 MEQ/L Blood Urea Nitrogen 15 MG/DL Creatinine 0.37 MG/DL Estimat Glomerular Filtration 247 ML/MIN Rate Random Glucose 109 MG/DL Calcium Level 8.6 MG/DL Phosphorus Level 2.3 MG/DL Imaging Last Impressions Chest X-Ray 10/19/15 0000 Signed Impressions: Service Date/Time: Monday, October 19, 2015 12:15 - CONCLUSION: No acute pulmonary infiltrates. Ilir Agosto MD Upper Extremity Ultrasound 10/13/15 0000 Signed Impressions: Service Date/Time: Tuesday, October 13, 2015 09:51 - CONCLUSION: 1. No evidence of deep venous thrombosis. John Anderson MD Abdomen X-Ray 10/12/15 0000 Signed Impressions: Service Date/Time: Monday, October 12, 2015 17:37 - CONCLUSION: 1. Gastrostomy tube in place 2. Unremarkable bowel gas pattern. Salazar Thurman MD Renal Ultrasound 10/07/15 0000 Signed Impressions: Service Date/Time: Wednesday, October 07, 2015 18:29 - CONCLUSION: 1. No acute findings. 3.6 cm left renal cyst. Putnam catheter in bladder. Amaury Ellsworth MD Tunnelled Chest Tube Removal 08/05/15 1100 Signed Impressions: Service Date/Time: Wednesday, August 05, 2015 11:00 - CONCLUSION: Uncomplicated chest tube removal. Blaien Jackson MD Chest Tube Change 07/31/15 0000 Signed Impressions: Service Date/Time: Friday, July 31, 2015 14:34 - CONCLUSION: Uncomplicated reposition of previously placed chest tube as above. Blaine Jackson MD Chest Tube Insertion 07/30/15 0000 Signed Impressions: Service Date/Time: July 14:50 - CONCLUSION: Uncomplicated chest tube placement as above. Blaine Jackson MD Catheter Change 07/27/15 0000 Signed Impressions: Service Date/Time: Monday, July 27, 2015 14:43 - CONCLUSION: Uncomplicated gastrostomy tube exchange as above. Blaine Jackson MD Chest CT 07/11/15 0000 Signed Impressions: Service Date/Time: Saturday, July 11, 2015 09:49 - CONCLUSION: Scattered patchy densities significantly improved from previous study. Tiny anterior right basilar pneumothorax. Right-sided chest tube in good position. Néstor Matamoros MD Head CT 06/18/151902 Signed Impressions: Service Date/Time: June 19:31 - CONCLUSION: Diffuse atrophy unchanged. No acute intracranial findings. Kush Briscoe MD Abdomen/Pelvis CT 06/18/151902 Signed Impressions: Service Date/Time: June 19:36 - CONCLUSION: 1. Chronic nonspecific urinary bladder wall thickening. Bladder collapsed with Putnam catheter in place. 2. Chronic bilateral mid to lower lung zone groundglass opacity. 3. Nonobstructing left renal calculus. 4. Distended rectum. Kush Briscoe MD Objective Remarks GENERAL: 54-year-old male, cachectic, debilitated with contractures on ventilator via trach. HEENT: NC/AT. PERRL. MMM. OP without erythema or exudates NECK: No JVD. Supple. 8.0 Distal XLT trach in place CARDIAC: RRR. S1/S2. No S4. No murmurs, clicks gallops or rubs. LUNGS: B/L equal air entry ABDOMEN: S/NT/ND. Positive BS EXTREMITIES: 1+ dependent pedal edema. Contractures and deformities of fingers. Stage III coccyx/sacral decubitus ulcer NEUROLOGY: Patient with significant contractures of the bilateral lower extremity, upper extremities. Eyes open spontaneously. Temporal and facial muscle wasting, muscular atrophy all extremities. Procedures 07/26- PEG replacement 07/29- right pigtail catheter placement for new pneumothorax Date of Insertion: Oct 05, 2015 A/P Assessment and Plan Neuro/Psych: Parkinson's disease Cognitive disorder not otherwise specified Chronic encephalopathy Dementia Depression Contractures On no sedation, monitor neuro status. CT head 06/18/15: - diffuse atrophy unchanged. No acute intracranial findings Continue Sinemet 25/100 q8 via PEG, Seroquel 50 mg twice a day, olanzapine 5 mg a night, Klonopin 2 mg every 8 hours, Paxil 20 daily Continue Lortab when necessary pain and fentanyl patch 50 g every 3 days for pain management. Fentanyl bolus prn breakthrough pain or if needed for turning/ nursing care/etc. Resp: Acute on chronic respiratory failure Chronic trach #8 Shiley distal XLT Pneumonia, aspiration (ESBL Klebsiella and Pseudomonas pneumonia) Right pneumothorax status post pigtail catheter 2 (resolved) Continue with vent support keep sat >90%. Ventilator bundle, pulm toilet, trach care, daily SBT, TP if patient tolerates Pulmonary Dr. Restrepo following. On Prednisone 60mg daily Exchanged to 8 Distal XLT on 08/15 to facilitate suctioning, trach care. Bronchodilators ( DuoNeb) CXR 10/18: No acute pulmonary infiltrates Cardiac History of orthostasis History of CAD History dyslipidemia History of hypertension Continue Midodrine 5 mg BID Monitor HR and BP keep MAP>65mmHg. GI: Chronic moderate protein energy malnutrition Dysphagia Status post PEG Internal hemorrhoids Gastroesophageal reflux disease - On TF Jevity 1.5 @60ml/hr, on Reglan 5mg Q8 PRN for high residuals. - On Prevacid 30 mg per PEG tube daily for GERD - 10/11 KUB abdomen: PEG tube in place. Unremarkable bowel gas pattern. FEN/Renal: Nonobstructing left renal calculus - Monitor renal function, I/O's. electrolytes replacement per protocol. Will need Phos replacement today. ID: Sepsis Aspiration pneumonia Cele UTI 10/19 Sputum: Pseudomonas- likely colonized 10/19 urine cx: Yeast species 10/12 BC: NGTD 10/11 BC: NGTD 10/11 Urine cx: C. Tropicalis 10/11 Sputum: ESBL Klebsiella and Pseudomonas pneumonia 10/10 Urine: C. Tropicalis 09/21 Urine cx: Pseudomonas ? colonized 09/19 Sputum cx: Pseudomonas, Kleb pneumonia ESBL pos Candiduria (cele tropicalis urine cx 08/17) ESBL positive Klebsiella/Pseudomonas pneumonia Stenotrophomonas in sputum 08/17 MRSA colonization sepsis UTI Klebsiella ESBL positive (has been treated) d/c abx ( Merrem ( s/p 10 day course) monitor for signs of infections ( Fever, WBC) ID service is following- Dr. Enoc Moss. Endo: On SSI ( medium) with accuchecks Q6. Heme Normocytic Anemia - Monitor CBC MSK Bilateral lower extremity Contractures Stage III sacral decubitus present on admission - Wound care and PT on case Prophylaxis - GI - Prevacid - DVT - SCDs/ Lovenox. ACCESS: PIVs Level 3 Antonio Carr MD Oct 24, 2015 09:12
[2015-10-24] MEDS: SODIUM PHOSPHATE INJ 30 MMOL in SODIUM CHLOR 0.9% 250 ML INJ 240 ML IV PRN (13:08)
[2015-10-24] MEDS: RESP: ALBUTEROL 2.5 MG/IPRATROPIUM 0.5 MG NEB (SCH) INH (20:03)
[2015-10-24] MEDS: ENOXAPARIN SODIUM 40 MG/0.4 ML SYRINGE SQ SCH (20:05)
[2015-10-24] MEDS: OLANZapine 5 MG TAB GT SCH (20:06)
[2015-10-25] VITALS (19 sets, daily range): BP systolic 103–117; BP diastolic 68–79; PULSE 84–106; RESP 15–30; TEMP 97.4–99.2; O2SAT 97–100
[2015-10-25] MEDS: clonazePAM 1 MG TAB PO SCH ×3 (05:05→20:24)
[2015-10-25] MEDS: CARBIDOPA/LEVODOPA 25 MG/100 MG TAB GT SCH ×3 (05:05→20:24)
[2015-10-25] MEDS: INSULIN NovoLIN REGULAR SUPPLEMENTAL SCALE SQ SCH ×3 (05:05→17:43)
[2015-10-25 06:47] LABS: BASOPHIL % 0.1 % (0.0-2.0); EOSINOPHIL % 0.1 % (0.0-4.0); HEMATOCRIT 34.8 % (39.0-51.0); HEMO FLAGS DIFF FINAL; LYMPH % 9.3 % (9.0-44.0); LYMPHOCYTE # 1.3 TH/MM3 (1.0-4.8); MEAN CELL VOLUME 82.3 FL (80.0-100.0); MEAN CORPUSCULAR HEMOGLOBIN 26.4 PG (27.0-34.0); MEAN CORPUSCULAR HGB CONC 32.1 % (32.0-36.0); MONO % 5.1 % (0.0-8.0); NEUT % 85.4 % (16.0-70.0); PLATELET COUNT 205 TH/MM3 (150-450); RED BLOOD COUNT 4.23 MIL/MM3 (4.50-5.90); RED CELL DISTRIBUTION WIDTH 18.3 % (11.6-17.2); WHITE BLOOD COUNT 14.1 TH/MM3 (4.0-11.0)
[2015-10-25 07:10] LABS: BICARBONATE 30.4 MEQ/L (21.0-32.0); POTASSIUM 3.9 MEQ/L (3.5-5.1)
[2015-10-25] MEDS: RESP: ALBUTEROL 2.5 MG/IPRATROPIUM 0.5 MG NEB (SCH) INH ×3 (07:51→20:06)
--- NOTE | 2015-10-25 08:36 | HHI.CCPN ---
Subjective Remarks/Hospital Course 06/17: Pt is a 54 yr man with multiple medical problems including Parkinson's disease, advanced dementia, hyponatremia, anxiety, pneumonia, GERD, cognitive disorder, and multidrug resistant UTI- ESBL02/19/15 , who resides in a [facility]. Pt by report was found by staff in [facility] to be less alert and having respiratory difficultly and fevers. Pt was brought to ED adn placed on ventilator. His workup was inclusive of labs, chest xray and ct head and abd/pelvis. WBC 16.4, +UTI, lactic acid 4, troponin ,0.02, BUN/ cre 18/ 0.76. CT head 06/18/15: diffuse atrophy unchanged. No acute intracranial findings ct abd/ pelvis with IV contrast: 06/18/15 Conclusion: 1. Chronic nonspecific urinary bladder wall thickening. Bladder collapsed with Putnam catheter in place. 2.Chronic bilateral mid to lower zone groundglass opacity. 3. Nonobstructing left renal calculus. 4. Distended rectum Pt admitted and fluid and abx ordered. 06/18: Drowsy, easily arousable. On mechanical ventilation via tracheostomy. Tachypneic. Resting tremor noted. 06/19: Drowsy, arousable. On mechanical ventilation via tracheostomy. 06/20: Drowsy, arousable. Remains on mechanical ventilation via tracheostomy. We'll repeat blood cultures, UA and urine cultures. Fluconazole IV added in view of yeast in urine. 07/06: Reconsulted as patient return to the ventilator on a right ventricular due to tachypnea. Low-grade temperatures. Tolerating tube feeding. Extremity encephalopathic demented patient with difficult neurological examination. 07/07: Status post chest tube placement by IR for right pneumothorax 07/06. Afebrile. Tolerating tube feeds. Positive BM. Currently tachypneic on the ventilator. Does not appear to be any acute distress. 07/08: Afebrile. Tolerating tube feeding. He is comfortable currently on CPAP trials 11/10. Positive BM. 07/09: Afebrile. Tolerating tube feeding. Appears comfortable on T bar. Positive BM. 07/10: Afebrile. Eyes are open. Remained on T piece overnight. Tolerating tube feeding. 07/11: MAXIMUM TEMPERATURE 100. Currently 98.6. Eyes are open. On ACV overnight secondary to "tachypnea and sweating". Switching back to PSV trials today. Goal is T piece during daytime, CPAP at night. 07/12: No acute events overnight. On PSV 15/5 -attempt TP up to 6 hours today. No pneumothorax on chest x-ray 07/13: Placed back on full ventilator support for tachypnea. Otherwise clinically unchanged. No fever today 07/14: Patient was on T piece yesterday evening, placed back on PSV overnight, patient mechanical ventilation this morning. Patient appears to be struggling with mechanical ventilation. Patient placed back on PSV with improvement 07/15: Patient placed back on mechanical ventilation last evening due to respiratory rate. It was indicated patient was tachypnea can the 40s. Patient on mechanical ventilation this time with respiration rate mid 20s. Chest tube still in place without any output, chest x-ray still indicating resolution of pneumothorax. 07/16: Patient seen and examined today. Patient placed back on mechanical ventilation overnight due to respiratory rate. Even on mechanical ventilation patient has respiration rate in the 30s. Patient afebrile, blood pressure stable. Continue vent weaning 07/17: Patient seen and examined. Currently afebrile. Currently on CPAP 15/5 @ 40%. Patient is awake with open mouth resting in bed in no apparent acute distress. Tolerating tube feeding. 2 bowel movements. 07/18: No neurological changes. Afebrile. 2 bowel moments. Tolerating tube feeding. We'll attempt TP trials today. On CPAP since 07/15 07/19 No events overnight. On CPAP with PS: 10, PEEP: 5 and FIO2 35%. Afebrile. On no sedation. 07/20 No events overnight. Tolerating CPAP. Afebrile. 07/21: Remains on CPAP. Attempt T piece trial today. Afebrile. One bowel movement. Tolerating tube feeding. 07/22: Afebrile. Positive BM. Tolerating tube feeding. Noted switched tracheostomy to #6 Shiley cuffed fenestrated. Neurologically unchanged 07/23: Afebrile. Positive BM. Tolerating tube feeding. Questionable leak in exchange trach. Place back on a rate/ACV overnight. Insufflated seems to be doing better at the present time. Will check chest x-ray. Possible he might need #6 XLT versus replacement of chronic #8 Shiley. 07/24: Tolerating TP today, RR in low 30s patient appears comfortable. No acute events overnight 07/25: Remains off the ventilator more than 36 hours now. Intermittently tachypneic probably breathing. Chest x-ray was clear yesterday. No acute events reported overnight. PEG not functioning per RN 08/02: Patient was transferred back to critical care service due to continuing ventilator management, tachypnea. Patient clinical status with no significant change. Patient with low-grade fever 100.2, 08/03: Patient seen and examined today. No significant change in clinical status. Patient still with chronic tachypnea. Patient afebrile now. 08/04: Patient seen and examined today. No change in clinical status. Patient still continues to have chronic tachypnea. Patient afebrile. Continue vent weaning 08/05: Patient seen and examined today. Patient had chest tube removed yesterday , chest x-ray shows redevelopment of pneumothorax. Chest tube replaced. Otherwise, patient still on ventilator with tachypnea. Afebrile 08/06: Patient seen and examined today. Patient went to have chest tube placed, repeat chest x-ray did not indicate any pneumothorax. No overnight events. We' ll need to pursue LTAC placement 08/07 No events overnight. On ventilator via trach. Afebrile. 08/08 Patient tolerated CPAP x4 hrs yesterday. Afebrile. On no sedation. 08/09 No events overnight. Tolerated CPAP x 12 hrs yesterday. Afebrile. 08/10 Patient tolerated TP's x 12 hrs yesterday back on ACV overnight. 08/11 No events overnight, currently on TP's with 40% FIO2. Afebrile. 08/12 On CPAP 10/5. Tolerated Tpiece 3 hours earlier today. Afebrile. 08/13 On CPAP 10/5. Not tolerating CPAP as well over last few days and RT notes challenge with suctioning respiratory secretions adequately. Discussing with healthcare proxy regarding exchange trach to 8.0. 08/14 Nursing and RT staff having continued difficulty suctioning respiratory secretions via 6.0 tracheostomy. KAREN Garcia did not consent to stoma dilation and trach upsize yesterday but said she would call back and let me know but no return call. Contacted again today and left a message. Afebrile. On CPAP 10/5. Brow furrowing on exam, appears to be in pain but pain not localizable. Tolerating tube feeds, had BM yesterday 08/15 Not tolerating CPAP today. Contacted healthcare surrogate again and discussed need for trach change. She consented and trach was dilated and up- sized to 8.0 Distal XLT to facilitate pulmonary toilet and to address volume leak. 08/16 No events overnight. Remains on ventilator via trach. Afebrile. Tolerating TF. 08/17 No events overnight. Afebrile. 08/18 Patient tolerated CPAP x 4 hrs yesterday. Afebrile.On ventilator via trach. 08/19 On CPAP 25/06. Temp max 99.3 08/20 Stenotrophomonas in sputum, started on Levaquin per ID. Temp max 99.8. On CPAP 20/09. Tube feeds were held because PEG was clogged but now PEG is functioning. 08/21 No events overnight. Afebrile. Remains on ventilator via trach. Has been tolerating CPAP trials for last 2 days. 08/22 No events overnight. Afebrile , Has been on CPAP all night with PS: 20, PEEP; 5 and FIO2 35%. 08/23 No events overnight. Remains on CPAP, T:99.9 08/24 No events overnight. On CPAP PS 10, PEEP; 5 and FIO2 35% overnight. Afebrile. 08/25 No events overnight. Afebrile. On CPAP overnight with PS 8, PEEP: 5 and FIO2 35%, afebrile. Tolerating TF. 08/26 Tolerating Tpiece. 08/27 Tolerated Tpiece yesterday and overnight. However this evening desaturated and was placed back on CPAP. Dr. Mistry attempted to update daughter Radha Foreman and discuss his overall poor prognosis for recovery, but call got disconnected midway through call and could not reach her back 08/28 On PSV 10/5 40% today. Afebrile. 08/29 On CPAP overnight. Now on Tpiece 70% per pulmonology. Increased yellow secretions noted. Temp max 99.1 Nursing staff expresses concern that he appears uncomfortable during all nursing care. Called elsa Garcia to update , no answer, left message to call me. 08/30: On CPAP overnight. Currently on T piece at 45%. Currently afebrile. Positive BM. Tolerating tube feeding. 08/31: On CPAP overnight. Will return T piece at 35%. MAXIMUM TEMPERATURE 99.6. 5 bowel movements. Tolerating tube feeds. Neurological examination unchanged. 09/01: Tmax 99.2. Currently afebrile. Currently in TPs at 35%. 7 bowel movement overnight. Tolerating tube feeding. Subjective: 09/19: Ciarra called secondary to aspiration on Gen. medical floor. Transfer to ICU and placed on mechanical ventilation. ABG shows CO2 retention. Etc. revealed no acute cardiac 20 finds however copious message to feed suctioned from trach tube 09/20 No events overnight. Afebrile. On ACV with RR 16, TV 500, PEEP: 5 and FIO2 40%. 09/21 No events overnight. Afebrile. 09/22 No events overnight. Tolerated CPAP all day yesterday with PS 12, PEEP:5 and FIO2 35%. Afebrile. 09/23 No events overnight. On no sedation Tolerated CPAP yesterday. Had T:100.3 last night. 09/24 Patient tolerated TP's x 6 hrs yesterday On CPAP 12/5 with 35% FIO2 overnight. Afebrile. 09/25 No events overnight. On CPAP overnight and TP's during day. Tolerating tube feeds. 10/11 Reconsult: Ciarra was called as patient was found hypotensive with SBP 80' s and tube feeds coming from trach site. Patient is receiving 1L bolus NS and STAT CXR showed mild pulm edema. On arrival to ICU patient was connected to ventilator ( On ACV RR 16, TV 500, PEEP:5 and FIO2 40% with sats 95%. Current BP 125/91 , P:81 10/12 Patient remains on ventilator overnight. Borderline low BP with MAP ranges 67-72. Afebrile. On no sedation. 10/13 Patient is on ventilator via trach, afebrile, WBC trending down. Patient was hypotensive yesterday responded to fluid resuscitation not on any pressors. 10/14: No acute events overnight. WBC count has normalized. Will start SBT as tolerated. CXR in am 10/15 No acute events overnight. Phosphorus low needs replacement. Otherwise neuro exam remains unchanged. remains on CPAP 10/16 Patient remains on ventilator via trach. On no sedation. Afebrile. 10/17 No acute events overnight. On ventilator via trach. Afebrile. 10/18 Tolerates CPAP, but unable to wean further. Otherwise no acute events overnight, remains afebrile 10/19 Patient is on ventilator via trach, UO 175ml in last 7 hrs. Afebrile. Tolerated CPAP x 6 hrs yesterday. 10/20 No acute events overnight. Tolerated CPAP for several hrs yesterday. Afebrile. UO better ( 1275ml in 24hrs). Given 1L NS total yesterday for decrease UO. 10/21 Patient is on ventilator via trach tolerated CPAP for most of day yesterday. Afebrile. Tolerating tube feeds. 10/22 No acute events overnight. Patient was on CPAP all day yesterday. Afebrile. 10/23 Patient tolerated all day yesterday. On ventilator via trach. Afebrile. 10/24 Patient remains on ventilator via trach. Afebrile. Objective - Vital Signs Date Time Temp Pulse Resp B/P Pulse Ox O2 Delivery O2 Flow Rate FiO2 10/25/15 07:52 100 35 10/25/15 06:00 104 10/25/15 04:00 98.7 24 105/74 10/22/15 07:55 Ventilator Intake and Output 10/24/15 10/24/15 10/25/15 08:00 16:00 00:00 Intake Total 440 ml 655 ml 1225 ml Output Total 700 ml 750 ml 700 ml Balance -260 ml -95 ml 525 ml Result Diagram: 10/25/15 0611 10/25/15 0611 Other Results Laboratory Tests Test 10/25/15 06:11 White Blood Count 14.1 TH/MM3 Red Blood Count 4.23 MIL/MM3 Hemoglobin 11.2 GM/DL Hematocrit 34.8 % Mean Corpuscular Volume 82.3 FL Mean Corpuscular Hemoglobin 26.4 PG Mean Corpuscular Hemoglobin 32.1 % Concent Red Cell Distribution Width 18.3 % Platelet Count 205 TH/MM3 Mean Platelet Volume 9.4 FL Neutrophils (%) (Auto) 85.4 % Lymphocytes (%) (Auto) 9.3 % Monocytes (%) (Auto) 5.1 % Eosinophils (%) (Auto) 0.1 % Basophils (%) (Auto) 0.1 % Neutrophils # (Auto) 12.0 TH/MM3 Lymphocytes # (Auto) 1.3 TH/MM3 Monocytes # (Auto) 0.7 TH/MM3 Eosinophils # (Auto) 0.0 TH/MM3 Basophils # (Auto) 0.0 TH/MM3 CBC Comment DIFF FINAL Differential Comment Sodium Level 138 MEQ/L Potassium Level 3.9 MEQ/L Chloride Level 100 MEQ/L Carbon Dioxide Level 30.4 MEQ/L Anion Gap 8 MEQ/L Blood Urea Nitrogen 18 MG/DL Creatinine 0.41 MG/DL Estimat Glomerular Filtration 220 ML/MIN Rate Random Glucose 122 MG/DL Calcium Level 8.8 MG/DL Imaging Last Impressions Chest X-Ray 10/19/15 0000 Signed Impressions: Service Date/Time: Monday, October 19, 2015 12:15 - CONCLUSION: No acute pulmonary infiltrates. Ilir Agosto MD Upper Extremity Ultrasound 10/13/15 0000 Signed Impressions: Service Date/Time: Tuesday, October 13, 2015 09:51 - CONCLUSION: 1. No evidence of deep venous thrombosis. John Anderson MD Abdomen X-Ray 10/12/15 0000 Signed Impressions: Service Date/Time: Monday, October 12, 2015 17:37 - CONCLUSION: 1. Gastrostomy tube in place 2. Unremarkable bowel gas pattern. Salazar Thurman MD Renal Ultrasound 10/07/15 0000 Signed Impressions: Service Date/Time: Wednesday, October 07, 2015 18:29 - CONCLUSION: 1. No acute findings. 3.6 cm left renal cyst. Putnam catheter in bladder. Amaury Ellsworth MD Tunnelled Chest Tube Removal 08/05/15 1100 Signed Impressions: Service Date/Time: Wednesday, August 05, 2015 11:00 - CONCLUSION: Uncomplicated chest tube removal. Blaine Jackson MD Chest Tube Change 07/31/15 0000 Signed Impressions: Service Date/Time: Friday, July 31, 2015 14:34 - CONCLUSION: Uncomplicated reposition of previously placed chest tube as above. Blaine Jackson MD Chest Tube Insertion 07/30/15 0000 Signed Impressions: Service Date/Time: July 14:50 - CONCLUSION: Uncomplicated chest tube placement as above. Blaine Jackson MD Catheter Change 07/27/15 0000 Signed Impressions: Service Date/Time: Monday, July 27, 2015 14:43 - CONCLUSION: Uncomplicated gastrostomy tube exchange as above. Blaine Jackson MD Chest CT 07/11/15 0000 Signed Impressions: Service Date/Time: Saturday, July 11, 2015 09:49 - CONCLUSION: Scattered patchy densities significantly improved from previous study. Tiny anterior right basilar pneumothorax. Right-sided chest tube in good position. Néstor Matamoros MD Head CT 06/18/151902 Signed Impressions: Service Date/Time: June 19:31 - CONCLUSION: Diffuse atrophy unchanged. No acute intracranial findings. Kush Briscoe MD Abdomen/Pelvis CT 06/18/151902 Signed Impressions: Service Date/Time: June 19:36 - CONCLUSION: 1. Chronic nonspecific urinary bladder wall thickening. Bladder collapsed with Putnam catheter in place. 2. Chronic bilateral mid to lower lung zone groundglass opacity. 3. Nonobstructing left renal calculus. 4. Distended rectum. Kush Briscoe MD Objective Remarks GENERAL: 54-year-old male, cachectic, debilitated with contractures on ventilator via trach. HEENT: NC/AT. PERRL. MMM. OP without erythema or exudates NECK: No JVD. Supple. 8.0 [address]al XLT trach in place CARDIAC: RRR. S1/S2. No S4. No murmurs, clicks gallops or rubs. LUNGS: B/L equal air entry ABDOMEN: S/NT/ND. Positive BS EXTREMITIES: 1+ dependent pedal edema. Contractures and deformities of fingers. Stage III coccyx/sacral decubitus ulcer NEUROLOGY: Patient with significant contractures of the bilateral lower extremity, upper extremities. Eyes open spontaneously. Temporal and facial muscle wasting, muscular atrophy all extremities. Procedures 07/26- PEG replacement 07/29- right pigtail catheter placement for new pneumothorax Date of Insertion: Oct 05, 2015 A/P Assessment and Plan Neuro/Psych: Parkinson's disease Cognitive disorder not otherwise specified Chronic encephalopathy Dementia Depression Contractures On no sedation, monitor neuro status. CT head 06/18/15: - diffuse atrophy unchanged. No acute intracranial findings Continue Sinemet 25/100 q8 via PEG, Seroquel 50 mg twice a day, olanzapine 5 mg a night, Klonopin 2 mg every 8 hours, Paxil 20 daily Continue Lortab when necessary pain and fentanyl patch 50 g every 3 days for pain management. Fentanyl bolus prn breakthrough pain or if needed for turning/ nursing care/etc. Resp: Acute on chronic respiratory failure Chronic trach #8 Shiley distal XLT Pneumonia, aspiration (ESBL Klebsiella and Pseudomonas pneumonia) Right pneumothorax status post pigtail catheter 2 (resolved) Continue with vent support keep sat >90%. Ventilator bundle, pulm toilet, trach care, daily SBT, TP if patient tolerates Pulmonary Dr. Restrepo following. On Prednisone 60mg daily Exchanged to 8 Distal XLT on 08/15 to facilitate suctioning, trach care. Bronchodilators ( DuoNeb) CXR 10/18: No acute pulmonary infiltrates Cardiac History of orthostasis History of CAD History dyslipidemia History of hypertension Continue Midodrine 5 mg BID Monitor HR and BP keep MAP>65mmHg. GI: Chronic moderate protein energy malnutrition Dysphagia Status post PEG Internal hemorrhoids Gastroesophageal reflux disease - Restart TF Jevity 1.5 with goal rate 60ml/hr, on Reglan 5mg Q8 PRN for high residuals. - On Prevacid 30 mg per PEG tube daily for GERD - 10/11 KUB abdomen: PEG tube in place. Unremarkable bowel gas pattern. FEN/Renal: Nonobstructing left renal calculus - Monitor renal function, I/O's. electrolytes replacement per protocol. ID: Aspiration pneumonia Cele UTI 10/19 Sputum: Pseudomonas- likely colonized 10/19 urine cx: Yeast species 10/12 BC: NGTD 10/11 BC: NGTD 10/11 Urine cx: C. Tropicalis 10/11 Sputum: ESBL Klebsiella and Pseudomonas pneumonia 10/10 Urine: C. Tropicalis 09/21 Urine cx: Pseudomonas ? colonized 09/19 Sputum cx: Pseudomonas, Kleb pneumonia ESBL pos Candiduria (cele tropicalis urine cx 08/17) ESBL positive Klebsiella/Pseudomonas pneumonia Stenotrophomonas in sputum 08/17 MRSA colonization sepsis UTI Klebsiella ESBL positive (has been treated) Off abx s/p ( Merrem finished 10 day course 10/23) monitor for signs of infections ( Fever, WBC) ID service is following- Dr. Enoc Moss. Endo: On SSI ( medium) with accuchecks Q6. Heme Normocytic Anemia - Monitor CBC MSK Bilateral lower extremity Contractures Stage III sacral decubitus present on admission - Wound care and PT on case Prophylaxis - GI - Prevacid - DVT - SCDs/ Lovenox. ACCESS: PIVs Level 3 Antonio Carr MD Oct 25, 2015 08:36
[2015-10-25] MEDS: MIDODRINE 5 MG TAB G-TUBE SCH ×2 (09:07→20:24)
[2015-10-25] MEDS: SODIUM CHLORIDE 0.9% FLUSH 5 ML FLUSH IVF SCH ×2 (09:07→20:25)
[2015-10-25] MEDS: QUEtiapine FUMARATE 25 MG TAB G-TUBE SCH ×2 (09:07→20:24)
[2015-10-25] MEDS: LACTOBACILLUS ACIDOPHILUS TAB PO SCH ×3 (09:07→17:43)
[2015-10-25] MEDS: LANSOPRAZOLE SOLUTAB 30 MG TAB NG SCH (09:07)
[2015-10-25] MEDS: PARoxetine HCL 20 MG TAB G-TUBE SCH (09:07)
[2015-10-25] MEDS: predniSONE 20 MG TAB PO SCH (09:07)
[2015-10-25] MEDS: GABAPENTIN 300 MG CAP G-TUBE SCH ×2 (09:07→20:24)
[2015-10-25] MEDS: CHLORHEXIDINE 0.12% (ORAL KIT) 15 ML CUP MT SCH ×2 (09:07→20:25)
[2015-10-25] MEDS: COLLAGENASE OINT 30 GM TUBE TOP SCH (09:08)
[2015-10-25] MEDS: ARTIFICIAL TEARS OPTH SOLN 15 ML BTL EACH EYE SCH ×3 (09:08→17:43)
[2015-10-25] MEDS: OLANZapine 5 MG TAB GT SCH (20:24)
[2015-10-25] MEDS: ENOXAPARIN SODIUM 40 MG/0.4 ML SYRINGE SQ SCH (20:24)
[2015-10-26] VITALS (20 sets, daily range): BP systolic 97–119; BP diastolic 69–84; PULSE 80–101; RESP 22–27; TEMP 98.1–99.4; O2SAT 97–100
[2015-10-26] MEDS: INSULIN NovoLIN REGULAR SUPPLEMENTAL SCALE SQ SCH ×5 (06:00→23:55)
[2015-10-26] MEDS: clonazePAM 1 MG TAB PO SCH ×3 (06:04→22:02)
[2015-10-26] MEDS: CARBIDOPA/LEVODOPA 25 MG/100 MG TAB GT SCH ×3 (06:04→22:02)
[2015-10-26 07:21] LABS: AUTOMATED NEUTROPHIL # 12.4 TH/MM3 (1.8-7.7); BASOPHIL % 0.2 % (0.0-2.0); EOSINOPHIL # 0.1 TH/MM3 (0-0.4); EOSINOPHIL % 0.4 % (0.0-4.0); HEMATOCRIT 36.3 % (39.0-51.0); HEMO FLAGS DIFF FINAL; LYMPHOCYTE # 1.7 TH/MM3 (1.0-4.8); MEAN CELL VOLUME 82.6 FL (80.0-100.0); MEAN CORPUSCULAR HEMOGLOBIN 26.1 PG (27.0-34.0); MEAN CORPUSCULAR HGB CONC 31.6 % (32.0-36.0); MONO % 6.2 % (0.0-8.0); NEUT % 82.2 % (16.0-70.0); PLATELET COUNT 227 TH/MM3 (150-450); RED CELL DISTRIBUTION WIDTH 18.8 % (11.6-17.2)
[2015-10-26 07:45] LABS: BICARBONATE 28.9 MEQ/L (21.0-32.0); MAGNESIUM 2.3 MG/DL (1.5-2.5); POTASSIUM 3.9 MEQ/L (3.5-5.1)
[2015-10-26] MEDS: CHLORHEXIDINE 0.12% (ORAL KIT) 15 ML CUP MT SCH ×2 (08:00→20:00)
[2015-10-26] MEDS: RESP: ALBUTEROL 2.5 MG/IPRATROPIUM 0.5 MG NEB (SCH) INH ×3 (08:24→20:29)
[2015-10-26] MEDS: GABAPENTIN 300 MG CAP G-TUBE SCH ×2 (08:58→22:02)
[2015-10-26] MEDS: predniSONE 20 MG TAB PO SCH (08:59)
[2015-10-26] MEDS: LANSOPRAZOLE SOLUTAB 30 MG TAB NG SCH (08:59)
[2015-10-26] MEDS: ARTIFICIAL TEARS OPTH SOLN 15 ML BTL EACH EYE SCH ×3 (08:59→18:00)
[2015-10-26] MEDS: COLLAGENASE OINT 30 GM TUBE TOP SCH (08:59)
[2015-10-26] MEDS: PARoxetine HCL 20 MG TAB G-TUBE SCH (08:59)
[2015-10-26] MEDS: MIDODRINE 5 MG TAB G-TUBE SCH ×2 (08:59→22:02)
[2015-10-26] MEDS: LACTOBACILLUS ACIDOPHILUS TAB PO SCH ×3 (08:59→18:00)
[2015-10-26] MEDS: QUEtiapine FUMARATE 25 MG TAB G-TUBE SCH ×2 (08:59→22:02)
[2015-10-26] MEDS: SODIUM CHLORIDE 0.9% FLUSH 5 ML FLUSH IVF SCH ×2 (09:00→22:02)
--- NOTE | 2015-10-26 15:04 | HHI.CCPN ---
Subjective Remarks/Hospital Course 06/17: Pt is a 54 yr man with multiple medical problems including Parkinson's disease, advanced dementia, hyponatremia, anxiety, pneumonia, GERD, cognitive disorder, and multidrug resistant UTI- ESBL02/19/15 , who [facility] a [facility]. Pt by report was found by staff in jail to be less alert and having respiratory difficultly and fevers. Pt was brought to ED adn placed on ventilator. His workup was inclusive of labs, chest xray and ct head and abd/pelvis. WBC 16.4, +UTI, lactic acid 4, troponin ,0.02, BUN/ cre 18/ 0.76. CT head 06/18/15: diffuse atrophy unchanged. No acute intracranial findings ct abd/ pelvis with IV contrast: 06/18/15 Conclusion: 1. Chronic nonspecific urinary bladder wall thickening. Bladder collapsed with Putnam catheter in place. 2.Chronic bilateral mid to lower zone groundglass opacity. 3. Nonobstructing left renal calculus. 4. Distended rectum Pt admitted and fluid and abx ordered. 06/18: Drowsy, easily arousable. On mechanical ventilation via tracheostomy. Tachypneic. Resting tremor noted. 06/19: Drowsy, arousable. On mechanical ventilation via tracheostomy. 06/20: Drowsy, arousable. Remains on mechanical ventilation via tracheostomy. We'll repeat blood cultures, UA and urine cultures. Fluconazole IV added in view of yeast in urine. 07/06: Reconsulted as patient return to the ventilator on a right ventricular due to tachypnea. Low-grade temperatures. Tolerating tube feeding. Extremity encephalopathic demented patient with difficult neurological examination. 07/07: Status post chest tube placement by IR for right pneumothorax 07/06. Afebrile. Tolerating tube feeds. Positive BM. Currently tachypneic on the ventilator. Does not appear to be any acute distress. 07/08: Afebrile. Tolerating tube feeding. He is comfortable currently on CPAP trials 11/10. Positive BM. 07/09: Afebrile. Tolerating tube feeding. Appears comfortable on T bar. Positive BM. 07/10: Afebrile. Eyes are open. Remained on T piece overnight. Tolerating tube feeding. 07/11: MAXIMUM TEMPERATURE 100. Currently 98.6. Eyes are open. On ACV overnight secondary to "tachypnea and sweating". Switching back to PSV trials today. Goal is T piece during daytime, CPAP at night. 07/12: No acute events overnight. On PSV 15/5 -attempt TP up to 6 hours today. No pneumothorax on chest x-ray 07/13: Placed back on full ventilator support for tachypnea. Otherwise clinically unchanged. No fever today 07/14: Patient was on T piece yesterday evening, placed back on PSV overnight, patient mechanical ventilation this morning. Patient appears to be struggling with mechanical ventilation. Patient placed back on PSV with improvement 07/15: Patient placed back on mechanical ventilation last evening due to respiratory rate. It was indicated patient was tachypnea can the 40s. Patient on mechanical ventilation this time with respiration rate mid 20s. Chest tube still in place without any output, chest x-ray still indicating resolution of pneumothorax. 07/16: Patient seen and examined today. Patient placed back on mechanical ventilation overnight due to respiratory rate. Even on mechanical ventilation patient has respiration rate in the 30s. Patient afebrile, blood pressure stable. Continue vent weaning 07/17: Patient seen and examined. Currently afebrile. Currently on CPAP 15/5 @ 40%. Patient is awake with open mouth resting in bed in no apparent acute distress. Tolerating tube feeding. 2 bowel movements. 07/18: No neurological changes. Afebrile. 2 bowel moments. Tolerating tube feeding. We'll attempt TP trials today. On CPAP since 07/15 07/19 No events overnight. On CPAP with PS: 10, PEEP: 5 and FIO2 35%. Afebrile. On no sedation. 07/20 No events overnight. Tolerating CPAP. Afebrile. 07/21: Remains on CPAP. Attempt T piece trial today. Afebrile. One bowel movement. Tolerating tube feeding. 07/22: Afebrile. Positive BM. Tolerating tube feeding. Noted switched tracheostomy to #6 Shiley cuffed fenestrated. Neurologically unchanged 07/23: Afebrile. Positive BM. Tolerating tube feeding. Questionable leak in exchange trach. Place back on a rate/ACV overnight. Insufflated seems to be doing better at the present time. Will check chest x-ray. Possible he might need #6 XLT versus replacement of chronic #8 Shiley. 07/24: Tolerating TP today, RR in low 30s patient appears comfortable. No acute events overnight 07/25: Remains off the ventilator more than 36 hours now. Intermittently tachypneic probably breathing. Chest x-ray was clear yesterday. No acute events reported overnight. PEG not functioning per RN 08/02: Patient was transferred back to critical care service due to continuing ventilator management, tachypnea. Patient clinical status with no significant change. Patient with low-grade fever 100.2, 08/03: Patient seen and examined today. No significant change in clinical status. Patient still with chronic tachypnea. Patient afebrile now. 08/04: Patient seen and examined today. No change in clinical status. Patient still continues to have chronic tachypnea. Patient afebrile. Continue vent weaning 08/05: Patient seen and examined today. Patient had chest tube removed yesterday , chest x-ray shows redevelopment of pneumothorax. Chest tube replaced. Otherwise, patient still on ventilator with tachypnea. Afebrile 08/06: Patient seen and examined today. Patient went to have chest tube placed, repeat chest x-ray did not indicate any pneumothorax. No overnight events. We' ll need to pursue LTAC placement 08/07 No events overnight. On ventilator via trach. Afebrile. 08/08 Patient tolerated CPAP x4 hrs yesterday. Afebrile. On no sedation. 08/09 No events overnight. Tolerated CPAP x 12 hrs yesterday. Afebrile. 08/10 Patient tolerated TP's x 12 hrs yesterday back on ACV overnight. 08/11 No events overnight, currently on TP's with 40% FIO2. Afebrile. 08/12 On CPAP 10/5. Tolerated Tpiece 3 hours earlier today. Afebrile. 08/13 On CPAP 10/5. Not tolerating CPAP as well over last few days and RT notes challenge with suctioning respiratory secretions adequately. Discussing with healthcare proxy regarding exchange trach to 8.0. 08/14 Nursing and RT staff having continued difficulty suctioning respiratory secretions via 6.0 tracheostomy. KAREN Garcia did not consent to stoma dilation and trach upsize yesterday but said she would call back and let me know but no return call. Contacted again today and left a message. Afebrile. On CPAP 10/5. Brow furrowing on exam, appears to be in pain but pain not localizable. Tolerating tube feeds, had BM yesterday 08/15 Not tolerating CPAP today. Contacted healthcare surrogate again and discussed need for trach change. She consented and trach was dilated and up- sized to 8.0 Distal XLT to facilitate pulmonary toilet and to address volume leak. 08/16 No events overnight. Remains on ventilator via trach. Afebrile. Tolerating TF. 08/17 No events overnight. Afebrile. 08/18 Patient tolerated CPAP x 4 hrs yesterday. Afebrile.On ventilator via trach. 08/19 On CPAP 25/06. Temp max 99.3 08/20 Stenotrophomonas in sputum, started on Levaquin per ID. Temp max 99.8. On CPAP 20/09. Tube feeds were held because PEG was clogged but now PEG is functioning. 08/21 No events overnight. Afebrile. Remains on ventilator via trach. Has been tolerating CPAP trials for last 2 days. 08/22 No events overnight. Afebrile , Has been on CPAP all night with PS: 20, PEEP; 5 and FIO2 35%. 08/23 No events overnight. Remains on CPAP, T:99.9 08/24 No events overnight. On CPAP PS 10, PEEP; 5 and FIO2 35% overnight. Afebrile. 08/25 No events overnight. Afebrile. On CPAP overnight with PS 8, PEEP: 5 and FIO2 35%, afebrile. Tolerating TF. 08/26 Tolerating Tpiece. 08/27 Tolerated Tpiece yesterday and overnight. However this evening desaturated and was placed back on CPAP. Dr. Mistry attempted to update daughter Radha Foreman and discuss his overall poor prognosis for recovery, but call got disconnected midway through call and could not reach her back 08/28 On PSV 10/5 40% today. Afebrile. 08/29 On CPAP overnight. Now on Tpiece 70% per pulmonology. Increased yellow secretions noted. Temp max 99.1 Nursing staff expresses concern that he appears uncomfortable during all nursing care. Called elsa aGrcia to update , no answer, left message to call me. 08/30: On CPAP overnight. Currently on T piece at 45%. Currently afebrile. Positive BM. Tolerating tube feeding. 08/31: On CPAP overnight. Will return T piece at 35%. MAXIMUM TEMPERATURE 99.6. 5 bowel movements. Tolerating tube feeds. Neurological examination unchanged. 09/01: Tmax 99.2. Currently afebrile. Currently in TPs at 35%. 7 bowel movement overnight. Tolerating tube feeding. Subjective: 09/19: Ciarra called secondary to aspiration on Gen. medical floor. Transfer to ICU and placed on mechanical ventilation. ABG shows CO2 retention. Etc. revealed no acute cardiac 20 finds however copious message to feed suctioned from trach tube 09/20 No events overnight. Afebrile. On ACV with RR 16, TV 500, PEEP: 5 and FIO2 40%. 09/21 No events overnight. Afebrile. 09/22 No events overnight. Tolerated CPAP all day yesterday with PS 12, PEEP:5 and FIO2 35%. Afebrile. 09/23 No events overnight. On no sedation Tolerated CPAP yesterday. Had T:100.3 last night. 09/24 Patient tolerated TP's x 6 hrs yesterday On CPAP 12/5 with 35% FIO2 overnight. Afebrile. 09/25 No events overnight. On CPAP overnight and TP's during day. Tolerating tube feeds. 10/11 Reconsult: Ciarra was called as patient was found hypotensive with SBP 80' s and tube feeds coming from trach site. Patient is receiving 1L bolus NS and STAT CXR showed mild pulm edema. On arrival to ICU patient was connected to ventilator ( On ACV RR 16, TV 500, PEEP:5 and FIO2 40% with sats 95%. Current BP 125/91 , P:81 10/12 Patient remains on ventilator overnight. Borderline low BP with MAP ranges 67-72. Afebrile. On no sedation. 10/13 Patient is on ventilator via trach, afebrile, WBC trending down. Patient was hypotensive yesterday responded to fluid resuscitation not on any pressors. 10/14: No acute events overnight. WBC count has normalized. Will start SBT as tolerated. CXR in am 10/15 No acute events overnight. Phosphorus low needs replacement. Otherwise neuro exam remains unchanged. remains on CPAP 10/16 Patient remains on ventilator via trach. On no sedation. Afebrile. 10/17 No acute events overnight. On ventilator via trach. Afebrile. 10/18 Tolerates CPAP, but unable to wean further. Otherwise no acute events overnight, remains afebrile 10/19 Patient is on ventilator via trach, UO 175ml in last 7 hrs. Afebrile. Tolerated CPAP x 6 hrs yesterday. 10/20 No acute events overnight. Tolerated CPAP for several hrs yesterday. Afebrile. UO better ( 1275ml in 24hrs). Given 1L NS total yesterday for decrease UO. 10/21 Patient is on ventilator via trach tolerated CPAP for most of day yesterday. Afebrile. Tolerating tube feeds. 10/22 No acute events overnight. Patient was on CPAP all day yesterday. Afebrile. 10/23 Patient tolerated all day yesterday. On ventilator via trach. Afebrile. 10/24 Patient remains on ventilator via trach. Afebrile. 10/25 Remains on vent on PSV 15/. No acute events overnight. WBC slightly increased Objective - Vital Signs Date Time Temp Pulse Resp B/P Pulse Ox O2 Delivery O2 Flow Rate FiO2 10/26/15 12:07 97 35 10/26/15 12:00 98.7 87 22 106/70 10/22/15 07:55 Ventilator Intake and Output 10/25/15 10/25/15 10/26/15 08:00 16:00 00:00 Intake Total 513 ml 100 ml 757 ml Output Total 200 ml 750 ml 100 ml Balance 313 ml -650 ml 657 ml Result Diagram: 10/26/15 0639 10/26/15 0639 Other Results Laboratory Tests Test 10/25/15 06:11 White Blood Count 14.1 TH/MM3 Red Blood Count 4.23 MIL/MM3 Hemoglobin 11.2 GM/DL Hematocrit 34.8 % Mean Corpuscular Volume 82.3 FL Mean Corpuscular Hemoglobin 26.4 PG Mean Corpuscular Hemoglobin 32.1 % Concent Red Cell Distribution Width 18.3 % Platelet Count 205 TH/MM3 Mean Platelet Volume 9.4 FL Neutrophils (%) (Auto) 85.4 % Lymphocytes (%) (Auto) 9.3 % Monocytes (%) (Auto) 5.1 % Eosinophils (%) (Auto) 0.1 % Basophils (%) (Auto) 0.1 % Neutrophils # (Auto) 12.0 TH/MM3 Lymphocytes # (Auto) 1.3 TH/MM3 Monocytes # (Auto) 0.7 TH/MM3 Eosinophils # (Auto) 0.0 TH/MM3 Basophils # (Auto) 0.0 TH/MM3 CBC Comment DIFF FINAL Differential Comment Sodium Level 138 MEQ/L Potassium Level 3.9 MEQ/L Chloride Level 100 MEQ/L Carbon Dioxide Level 30.4 MEQ/L Anion Gap 8 MEQ/L Blood Urea Nitrogen 18 MG/DL Creatinine 0.41 MG/DL Estimat Glomerular Filtration 220 ML/MIN Rate Random Glucose 122 MG/DL Calcium Level 8.8 MG/DL Imaging Last Impressions Chest X-Ray 10/19/15 0000 Signed Impressions: Service Date/Time: Monday, October 19, 2015 12:15 - CONCLUSION: No acute pulmonary infiltrates. Ilir Agosto MD Upper Extremity Ultrasound 10/13/15 0000 Signed Impressions: Service Date/Time: Tuesday, October 13, 2015 09:51 - CONCLUSION: 1. No evidence of deep venous thrombosis. John Anderson MD Abdomen X-Ray 10/12/15 0000 Signed Impressions: Service Date/Time: Monday, October 12, 2015 17:37 - CONCLUSION: 1. Gastrostomy tube in place 2. Unremarkable bowel gas pattern. Salazar Thurman MD Renal Ultrasound 10/07/15 0000 Signed Impressions: Service Date/Time: Wednesday, October 07, 2015 18:29 - CONCLUSION: 1. No acute findings. 3.6 cm left renal cyst. Putnam catheter in bladder. Amaury Ellsworth MD Tunnelled Chest Tube Removal 08/05/15 1100 Signed Impressions: Service Date/Time: Wednesday, August 05, 2015 11:00 - CONCLUSION: Uncomplicated chest tube removal. Blaine Jackson MD Chest Tube Change 07/31/15 0000 Signed Impressions: Service Date/Time: Friday, July 31, 2015 14:34 - CONCLUSION: Uncomplicated reposition of previously placed chest tube as above. Blaine Jackson MD Chest Tube Insertion 07/30/15 0000 Signed Impressions: Service Date/Time: July 14:50 - CONCLUSION: Uncomplicated chest tube placement as above. Blaine Jackson MD Catheter Change 07/27/15 0000 Signed Impressions: Service Date/Time: Monday, July 27, 2015 14:43 - CONCLUSION: Uncomplicated gastrostomy tube exchange as above. Blaine Jackson MD Chest CT 07/11/15 0000 Signed Impressions: Service Date/Time: Saturday, July 11, 2015 09:49 - CONCLUSION: Scattered patchy densities significantly improved from previous study. Tiny anterior right basilar pneumothorax. Right-sided chest tube in good position. Néstor Matamoros MD Head CT 06/18/151902 Signed Impressions: Service Date/Time: June 19:31 - CONCLUSION: Diffuse atrophy unchanged. No acute intracranial findings. Kush Briscoe MD Abdomen/Pelvis CT 06/18/151902 Signed Impressions: Service Date/Time: June 19:36 - CONCLUSION: 1. Chronic nonspecific urinary bladder wall thickening. Bladder collapsed with Putnam catheter in place. 2. Chronic bilateral mid to lower lung zone groundglass opacity. 3. Nonobstructing left renal calculus. 4. Distended rectum. Kush Briscoe MD Objective Remarks GENERAL: 54-year-old male, cachectic, debilitated with contractures on ventilator via trach. HEENT: NC/AT. PERRL. MMM. OP without erythema or exudates NECK: No JVD. Supple. 8.0 Distal XLT trach in place CARDIAC: RRR. S1/S2. No S4. No murmurs, clicks gallops or rubs. LUNGS: B/L equal air entry ABDOMEN: S/NT/ND. Positive BS EXTREMITIES: 1+ dependent pedal edema. Contractures and deformities of fingers. Stage III coccyx/sacral decubitus ulcer NEUROLOGY: Patient with significant contractures of the bilateral lower extremity, upper extremities. Eyes open spontaneously. Temporal and facial muscle wasting, muscular atrophy all extremities. Procedures 07/26- PEG replacement 07/29- right pigtail catheter placement for new pneumothorax Urinary Catheter: Yes Assessment to: Continue Date of Insertion: Oct 05, 2015 Vascular Central Line Catheter: Yes Assessment to: Continue A/P Assessment and Plan Neuro/Psych: Parkinson's disease Cognitive disorder not otherwise specified Chronic encephalopathy Dementia Depression Contractures On no sedation, monitor neuro status. CT head 06/18/15: - diffuse atrophy unchanged. No acute intracranial findings Continue Sinemet 25/100 q8 via PEG, Seroquel 50 mg twice a day, olanzapine 5 mg a night, Klonopin 2 mg every 8 hours, Paxil 20 daily Continue Lortab when necessary pain and fentanyl patch 50 g every 3 days for pain management. Fentanyl bolus prn breakthrough pain or if needed for turning/ nursing care/etc. Resp: Acute on chronic respiratory failure Chronic trach #8 Shiley distal XLT Pneumonia, aspiration (ESBL Klebsiella and Pseudomonas pneumonia) Right pneumothorax status post pigtail catheter 2 (resolved) Continue with vent support keep sat >90%. Ventilator bundle, pulm toilet, trach care, daily SBT, TP if patient tolerates Pulmonary Dr. Restrepo following. On Prednisone 60mg daily Exchanged to 8 Distal XLT on 08/15 to facilitate suctioning, trach care. Bronchodilators ( DuoNeb) CXR 10/18: No acute pulmonary infiltrates Cardiac History of orthostasis History of CAD History dyslipidemia History of hypertension Continue Midodrine 5 mg BID Monitor HR and BP keep MAP>65mmHg. GI: Chronic moderate protein energy malnutrition Dysphagia Status post PEG Internal hemorrhoids Gastroesophageal reflux disease - TF Jevity 1.5 with goal rate 60ml/hr, on Reglan 5mg Q8 PRN for high residuals. - On Prevacid 30 mg per PEG tube daily for GERD - 10/11 KUB abdomen: PEG tube in place. Unremarkable bowel gas pattern. FEN/Renal: Nonobstructing left renal calculus - Monitor renal function, I/O's. electrolytes replacement per protocol. ID: Aspiration pneumonia Cele UTI 10/19 Sputum: Pseudomonas- likely colonized 10/19 urine cx: Yeast species 10/12 BC: NGTD 10/11 BC: NGTD 10/11 Urine cx: C. Tropicalis 10/11 Sputum: ESBL Klebsiella and Pseudomonas pneumonia 10/10 Urine: C. Tropicalis 09/21 Urine cx: Pseudomonas ? colonized 09/19 Sputum cx: Pseudomonas, Kleb pneumonia ESBL pos Candiduria (cele tropicalis urine cx 08/17) ESBL positive Klebsiella/Pseudomonas pneumonia Stenotrophomonas in sputum 08/17 MRSA colonization sepsis UTI Klebsiella ESBL positive (has been treated) Off abx s/p ( Merrem finished 10 day course 10/23) monitor for signs of infections ( Fever, WBC) ID service is following- Dr. Enoc Moss. Slight increase in WBC. Check CXR in am Endo: On SSI ( medium) with accuchecks Q6. Heme Normocytic Anemia - Monitor CBC MSK Bilateral lower extremity Contractures Stage III sacral decubitus present on admission - Wound care and PT on case Prophylaxis - GI - Prevacid - DVT - SCDs/ Lovenox. ACCESS: PIVs Level 3 Hilario Kern MD Oct 26, 2015 15:04
--- NOTE | 2015-10-26 20:10 | HHI.PR ---
Subjective Remarks 54 YOWM with ChRF,Trach, multiple uti No fever Gets anxious. No Fever Mod amount of trach secretions. tolerating CPAP Tolerates TF Objective Vital Signs Vital Signs Date Time Temp Pulse Resp B/P Pulse Ox O2 Delivery O2 Flow Rate FiO2 10/26/15 18:00 84 10/26/15 16:00 35 10/26/15 16:00 84 10/26/15 16:00 98.7 90 24 107/72 99 10/26/15 15:49 100 35 10/26/15 14:00 84 10/26/15 12:07 97 35 10/26/15 12:00 35 10/26/15 12:00 98.7 87 22 106/70 100 10/26/15 12:00 87 10/26/15 10:03 87 10/26/15 08:27 100 35 10/26/15 08:26 35 10/26/15 08:22 100 35 10/26/15 08:00 35 10/26/15 08:00 84 10/26/15 08:00 98.7 83 22 119/84 100 10/26/15 06:00 87 10/26/15 04:08 100 35 10/26/15 04:00 98.2 84 24 112/77 100 10/26/15 04:00 84 10/26/15 04:00 35 10/26/15 02:00 94 10/26/15 01:06 100 35 10/26/15 00:00 80 10/26/15 00:00 35 10/26/15 00:00 98.1 90 24 107/77 100 10/25/15 22:22 97 35 10/25/15 22:00 87 I/O 10/25/15 10/25/15 10/25/15 10/26/15 10/26/15 10/26/15 07:00 15:00 23:00 07:00 15:00 23:00 Intake Total 513 ml 100 ml 757 ml 174 ml 402 ml Output Total 200 ml 750 ml 100 ml 350 ml 350 ml Balance 313 ml -650 ml 657 ml -176 ml 52 ml Intake Oral 2 ml IV Total 88 ml 0 ml 0 ml Tube Feeding 425 ml 407 ml 174 ml 400 ml Tube Irrigant 100 ml Other 350 ml Output Urine Total 200 ml 750 ml 100 ml 350 ml 350 ml # Voids 2 # Bowel Movements 1 4 1 Result Diagram: 10/26/15 0639 10/26/1539 Objective Remarks GENERAL: MBMN male on Vent. SKIN: Warm and dry. HEAD: Normocephalic. EYES: No scleral icterus. No injection or drainage. NECK: Supple, trachea midline. No JVD or lymphadenopathy. has trach CARDIOVASCULAR: Regular rate and rhythm without murmurs, gallops, or rubs. RESPIRATORY: Breath sounds equal bilaterally. No accessory muscle use. GASTROINTESTINAL: Abdomen soft, non-tender, nondistended. PEG tube in place MUSCULOSKELETAL: No cyanosis, or edema. BACK: Nontender without obvious deformity. No CVA tenderness. A/P Assessment and Plan VDRF S/P Trach Parkinson's diasease Dementia Aspiration PLAN: TF Cont CPAP Abx Per ID ACV prn sob, techypnoea. Trach care Cont Abx Severiano Ag MD Oct 26, 2015 20:10
[2015-10-26] MEDS: OLANZapine 5 MG TAB GT SCH (22:02)
[2015-10-26] MEDS: ENOXAPARIN SODIUM 40 MG/0.4 ML SYRINGE SQ SCH (22:02)
[2015-10-27] VITALS (18 sets, daily range): BP systolic 105–126; BP diastolic 70–90; PULSE 68–94; RESP 20–27; TEMP 97.2–98.9; O2SAT 99–100
--- NOTE | 2015-10-27 05:17 | RADRPT ---
EXAM DATE/TIME: 10/27/2015 04:06 [facility] COMPARISON: CHEST SINGLE AP, October 19, 2015, 12:15. INDICATIONS : Shortness of breath. MEDICAL HISTORY : Hypertension. Cardiovascular disease. Diabetes mellitus type II. SURGICAL HISTORY : Tracheostomy. ENCOUNTER: Subsequent ACUITY: 4 - 6 months PAIN SCORE: Non-responsive. LOCATION: Bilateral chest FINDINGS: Portable AP view of the chest demonstrates a normal-sized cardiac silhouette. Tracheostomy remains pr esent. Lungs are underinflated. No effusion, consolidation, or pneumothorax is visualized. CONCLUSION: Stable chest x-ray without an acute finding identified. Erlin Barajas MD on October 27, 2015 at 5:14 Board Certified Radiologist. This report was verified electronically.
[2015-10-27] MEDS: CARBIDOPA/LEVODOPA 25 MG/100 MG TAB GT SCH ×3 (05:34→22:55)
[2015-10-27] MEDS: clonazePAM 1 MG TAB PO SCH ×3 (05:34→22:55)
[2015-10-27] MEDS: INSULIN NovoLIN REGULAR SUPPLEMENTAL SCALE SQ SCH ×3 (05:34→18:00)
[2015-10-27] MEDS: CHLORHEXIDINE 0.12% (ORAL KIT) 15 ML CUP MT SCH ×2 (08:00→22:54)
[2015-10-27] MEDS: REMOVE OLD PATCH TD SCH (08:00)
[2015-10-27] MEDS: RESP: ALBUTEROL 2.5 MG/IPRATROPIUM 0.5 MG NEB (SCH) INH ×3 (08:48→19:57)
[2015-10-27] MEDS: COLLAGENASE OINT 30 GM TUBE TOP SCH (09:00)
[2015-10-27] MEDS: ARTIFICIAL TEARS OPTH SOLN 15 ML BTL EACH EYE SCH ×3 (09:00→18:00)
[2015-10-27] MEDS: SODIUM CHLORIDE 0.9% FLUSH 5 ML FLUSH IVF SCH ×2 (09:00→21:00)
[2015-10-27] MEDS: GABAPENTIN 300 MG CAP G-TUBE SCH ×2 (09:15→22:54)
[2015-10-27] MEDS: LACTOBACILLUS ACIDOPHILUS TAB PO SCH ×3 (09:15→18:00)
[2015-10-27] MEDS: MIDODRINE 5 MG TAB G-TUBE SCH ×2 (09:15→22:54)
[2015-10-27] MEDS: LANSOPRAZOLE SOLUTAB 30 MG TAB NG SCH (09:15)
[2015-10-27] MEDS: PARoxetine HCL 20 MG TAB G-TUBE SCH (09:15)
[2015-10-27] MEDS: QUEtiapine FUMARATE 25 MG TAB G-TUBE SCH ×2 (09:15→22:54)
[2015-10-27] MEDS: predniSONE 20 MG TAB PO SCH (09:15)
--- NOTE | 2015-10-27 11:32 | HHI.CCPN ---
Subjective Remarks/Hospital Course 06/17: Pt is a 54 yr man with multiple medical problems including Parkinson's disease, advanced dementia, hyponatremia, anxiety, pneumonia, GERD, cognitive disorder, and multidrug resistant UTI- ESBL02/19/15 , who resides in a custodial. Pt by report was found by staff in custodial to be less alert and having respiratory difficultly and fevers. Pt was brought to ED adn placed on ventilator. His workup was inclusive of labs, chest xray and ct head and abd/pelvis. WBC 16.4, +UTI, lactic acid 4, troponin ,0.02, BUN/ cre 18/ 0.76. CT head 06/18/15: diffuse atrophy unchanged. No acute intracranial findings ct abd/ pelvis with IV contrast: 06/18/15 Conclusion: 1. Chronic nonspecific urinary bladder wall thickening. Bladder collapsed with Putnam catheter in place. 2.Chronic bilateral mid to lower zone groundglass opacity. 3. Nonobstructing left renal calculus. 4. Distended rectum Pt admitted and fluid and abx ordered. 06/18: Drowsy, easily arousable. On mechanical ventilation via tracheostomy. Tachypneic. Resting tremor noted. 06/19: Drowsy, arousable. On mechanical ventilation via tracheostomy. 06/20: Drowsy, arousable. Remains on mechanical ventilation via tracheostomy. We'll repeat blood cultures, UA and urine cultures. Fluconazole IV added in view of yeast in urine. 07/06: Reconsulted as patient return to the ventilator on a right ventricular due to tachypnea. Low-grade temperatures. Tolerating tube feeding. Extremity encephalopathic demented patient with difficult neurological examination. 07/07: Status post chest tube placement by IR for right pneumothorax 07/06. Afebrile. Tolerating tube feeds. Positive BM. Currently tachypneic on the ventilator. Does not appear to be any acute distress. 07/08: Afebrile. Tolerating tube feeding. He is comfortable currently on CPAP trials 11/10. Positive BM. 07/09: Afebrile. Tolerating tube feeding. Appears comfortable on T bar. Positive BM. 07/10: Afebrile. Eyes are open. Remained on T piece overnight. Tolerating tube feeding. 07/11: MAXIMUM TEMPERATURE 100. Currently 98.6. Eyes are open. On ACV overnight secondary to "tachypnea and sweating". Switching back to PSV trials today. Goal is T piece during daytime, CPAP at night. 07/12: No acute events overnight. On PSV 15/5 -attempt TP up to 6 hours today. No pneumothorax on chest x-ray 07/13: Placed back on full ventilator support for tachypnea. Otherwise clinically unchanged. No fever today 07/14: Patient was on T piece yesterday evening, placed back on PSV overnight, patient mechanical ventilation this morning. Patient appears to be struggling with mechanical ventilation. Patient placed back on PSV with improvement 07/15: Patient placed back on mechanical ventilation last evening due to respiratory rate. It was indicated patient was tachypnea can the 40s. Patient on mechanical ventilation this time with respiration rate mid 20s. Chest tube still in place without any output, chest x-ray still indicating resolution of pneumothorax. 07/16: Patient seen and examined today. Patient placed back on mechanical ventilation overnight due to respiratory rate. Even on mechanical ventilation patient has respiration rate in the 30s. Patient afebrile, blood pressure stable. Continue vent weaning 07/17: Patient seen and examined. Currently afebrile. Currently on CPAP 15/5 @ 40%. Patient is awake with open mouth resting in bed in no apparent acute distress. Tolerating tube feeding. 2 bowel movements. 07/18: No neurological changes. Afebrile. 2 bowel moments. Tolerating tube feeding. We'll attempt TP trials today. On CPAP since 07/15 07/19 No events overnight. On CPAP with PS: 10, PEEP: 5 and FIO2 35%. Afebrile. On no sedation. 07/20 No events overnight. Tolerating CPAP. Afebrile. 07/21: Remains on CPAP. Attempt T piece trial today. Afebrile. One bowel movement. Tolerating tube feeding. 07/22: Afebrile. Positive BM. Tolerating tube feeding. Noted switched tracheostomy to #6 Shiley cuffed fenestrated. Neurologically unchanged 07/23: Afebrile. Positive BM. Tolerating tube feeding. Questionable leak in exchange trach. Place back on a rate/ACV overnight. Insufflated seems to be doing better at the present time. Will check chest x-ray. Possible he might need #6 XLT versus replacement of chronic #8 Shiley. 07/24: Tolerating TP today, RR in low 30s patient appears comfortable. No acute events overnight 07/25: Remains off the ventilator more than 36 hours now. Intermittently tachypneic probably breathing. Chest x-ray was clear yesterday. No acute events reported overnight. PEG not functioning per RN 08/02: Patient was transferred back to critical care service due to continuing ventilator management, tachypnea. Patient clinical status with no significant change. Patient with low-grade fever 100.2, 08/03: Patient seen and examined today. No significant change in clinical status. Patient still with chronic tachypnea. Patient afebrile now. 08/04: Patient seen and examined today. No change in clinical status. Patient still continues to have chronic tachypnea. Patient afebrile. Continue vent weaning 08/05: Patient seen and examined today. Patient had chest tube removed yesterday , chest x-ray shows redevelopment of pneumothorax. Chest tube replaced. Otherwise, patient still on ventilator with tachypnea. Afebrile 08/06: Patient seen and examined today. Patient went to have chest tube placed, repeat chest x-ray did not indicate any pneumothorax. No overnight events. We' ll need to pursue LTAC placement 08/07 No events overnight. On ventilator via trach. Afebrile. 08/08 Patient tolerated CPAP x4 hrs yesterday. Afebrile. On no sedation. 08/09 No events overnight. Tolerated CPAP x 12 hrs yesterday. Afebrile. 08/10 Patient tolerated TP's x 12 hrs yesterday back on ACV overnight. 08/11 No events overnight, currently on TP's with 40% FIO2. Afebrile. 08/12 On CPAP 10/5. Tolerated Tpiece 3 hours earlier today. Afebrile. 08/13 On CPAP 10/5. Not tolerating CPAP as well over last few days and RT notes challenge with suctioning respiratory secretions adequately. Discussing with healthcare proxy regarding exchange trach to 8.0. 08/14 Nursing and RT staff having continued difficulty suctioning respiratory secretions via 6.0 tracheostomy. KAREN Garcia did not consent to stoma dilation and trach upsize yesterday but said she would call back and let me know but no return call. Contacted again today and left a message. Afebrile. On CPAP 10/5. Brow furrowing on exam, appears to be in pain but pain not localizable. Tolerating tube feeds, had BM yesterday 08/15 Not tolerating CPAP today. Contacted healthcare surrogate again and discussed need for trach change. She consented and trach was dilated and up- sized to 8.0 Distal XLT to facilitate pulmonary toilet and to address volume leak. 08/16 No events overnight. Remains on ventilator via trach. Afebrile. Tolerating TF. 08/17 No events overnight. Afebrile. 08/18 Patient tolerated CPAP x 4 hrs yesterday. Afebrile.On ventilator via trach. 08/19 On CPAP 25/06. Temp max 99.3 08/20 Stenotrophomonas in sputum, started on Levaquin per ID. Temp max 99.8. On CPAP 20/09. Tube feeds were held because PEG was clogged but now PEG is functioning. 08/21 No events overnight. Afebrile. Remains on ventilator via trach. Has been tolerating CPAP trials for last 2 days. 08/22 No events overnight. Afebrile , Has been on CPAP all night with PS: 20, PEEP; 5 and FIO2 35%. 08/23 No events overnight. Remains on CPAP, T:99.9 08/24 No events overnight. On CPAP PS 10, PEEP; 5 and FIO2 35% overnight. Afebrile. 08/25 No events overnight. Afebrile. On CPAP overnight with PS 8, PEEP: 5 and FIO2 35%, afebrile. Tolerating TF. 08/26 Tolerating Tpiece. 08/27 Tolerated Tpiece yesterday and overnight. However this evening desaturated and was placed back on CPAP. Dr. Mistry attempted to update daughter Radha Foreman and discuss his overall poor prognosis for recovery, but call got disconnected midway through call and could not reach her back 08/28 On PSV 10/5 40% today. Afebrile. 08/29 On CPAP overnight. Now on Tpiece 70% per pulmonology. Increased yellow secretions noted. Temp max 99.1 Nursing staff expresses concern that he appears uncomfortable during all nursing care. Called elsa Garcia to update , no answer, left message to call me. 08/30: On CPAP overnight. Currently on T piece at 45%. Currently afebrile. Positive BM. Tolerating tube feeding. 08/31: On CPAP overnight. Will return T piece at 35%. MAXIMUM TEMPERATURE 99.6. 5 bowel movements. Tolerating tube feeds. Neurological examination unchanged. 09/01: Tmax 99.2. Currently afebrile. Currently in TPs at 35%. 7 bowel movement overnight. Tolerating tube feeding. Subjective: 09/19: Ciarra called secondary to aspiration on Gen. medical floor. Transfer to ICU and placed on mechanical ventilation. ABG shows CO2 retention. Etc. revealed no acute cardiac 20 finds however copious message to feed suctioned from trach tube 09/20 No events overnight. Afebrile. On ACV with RR 16, TV 500, PEEP: 5 and FIO2 40%. 09/21 No events overnight. Afebrile. 09/22 No events overnight. Tolerated CPAP all day yesterday with PS 12, PEEP:5 and FIO2 35%. Afebrile. 09/23 No events overnight. On no sedation Tolerated CPAP yesterday. Had T:100.3 last night. 09/24 Patient tolerated TP's x 6 hrs yesterday On CPAP 12/5 with 35% FIO2 overnight. Afebrile. 09/25 No events overnight. On CPAP overnight and TP's during day. Tolerating tube feeds. 10/11 Reconsult: Ciarra was called as patient was found hypotensive with SBP 80' s and tube feeds coming from trach site. Patient is receiving 1L bolus NS and STAT CXR showed mild pulm edema. On arrival to ICU patient was connected to ventilator ( On ACV RR 16, TV 500, PEEP:5 and FIO2 40% with sats 95%. Current BP 125/91 , P:81 10/12 Patient remains on ventilator overnight. Borderline low BP with MAP ranges 67-72. Afebrile. On no sedation. 10/13 Patient is on ventilator via trach, afebrile, WBC trending down. Patient was hypotensive yesterday responded to fluid resuscitation not on any pressors. 10/14: No acute events overnight. WBC count has normalized. Will start SBT as tolerated. CXR in am 10/15 No acute events overnight. Phosphorus low needs replacement. Otherwise neuro exam remains unchanged. remains on CPAP 10/16 Patient remains on ventilator via trach. On no sedation. Afebrile. 10/17 No acute events overnight. On ventilator via trach. Afebrile. 10/18 Tolerates CPAP, but unable to wean further. Otherwise no acute events overnight, remains afebrile 10/19 Patient is on ventilator via trach, UO 175ml in last 7 hrs. Afebrile. Tolerated CPAP x 6 hrs yesterday. 10/20 No acute events overnight. Tolerated CPAP for several hrs yesterday. Afebrile. UO better ( 1275ml in 24hrs). Given 1L NS total yesterday for decrease UO. 10/21 Patient is on ventilator via trach tolerated CPAP for most of day yesterday. Afebrile. Tolerating tube feeds. 10/22 No acute events overnight. Patient was on CPAP all day yesterday. Afebrile. 10/23 Patient tolerated all day yesterday. On ventilator via trach. Afebrile. 10/24 Patient remains on ventilator via trach. Afebrile. 10/25 Remains on vent on PSV 15/5. No acute events overnight. WBC slightly increased 10/26 PSV reduced to 10/5. Required AC/VC support yesterday as patient became tachypneic. No other changes Objective - Vital Signs Date Time Temp Pulse Resp B/P Pulse Ox O2 Delivery O2 Flow Rate FiO2 10/27/15 10:00 85 10/27/15 08:51 100 35 10/27/15 08:00 98.9 24 105/70 Intake and Output 10/26/15 10/26/15 10/27/15 08:00 16:00 00:00 Intake Total 174 ml 402 ml 742 ml Output Total 350 ml 350 ml 775 ml Balance -176 ml 52 ml -33 ml Result Diagram: 10/26/15 0639 10/26/15 0639 Other Results Laboratory Tests Test 10/25/15 06:11 White Blood Count 14.1 TH/MM3 Red Blood Count 4.23 MIL/MM3 Hemoglobin 11.2 GM/DL Hematocrit 34.8 % Mean Corpuscular Volume 82.3 FL Mean Corpuscular Hemoglobin 26.4 PG Mean Corpuscular Hemoglobin 32.1 % Concent Red Cell Distribution Width 18.3 % Platelet Count 205 TH/MM3 Mean Platelet Volume 9.4 FL Neutrophils (%) (Auto) 85.4 % Lymphocytes (%) (Auto) 9.3 % Monocytes (%) (Auto) 5.1 % Eosinophils (%) (Auto) 0.1 % Basophils (%) (Auto) 0.1 % Neutrophils # (Auto) 12.0 TH/MM3 Lymphocytes # (Auto) 1.3 TH/MM3 Monocytes # (Auto) 0.7 TH/MM3 Eosinophils # (Auto) 0.0 TH/MM3 Basophils # (Auto) 0.0 TH/MM3 CBC Comment DIFF FINAL Differential Comment Sodium Level 138 MEQ/L Potassium Level 3.9 MEQ/L Chloride Level 100 MEQ/L Carbon Dioxide Level 30.4 MEQ/L Anion Gap 8 MEQ/L Blood Urea Nitrogen 18 MG/DL Creatinine 0.41 MG/DL Estimat Glomerular Filtration 220 ML/MIN Rate Random Glucose 122 MG/DL Calcium Level 8.8 MG/DL Imaging Last Impressions Chest X-Ray 10/19/15 0000 Signed Impressions: Service Date/Time: Monday, October 19, 2015 12:15 - CONCLUSION: No acute pulmonary infiltrates. Ilir Agosto MD Upper Extremity Ultrasound 10/13/15 0000 Signed Impressions: Service Date/Time: Tuesday, October 13, 2015 09:51 - CONCLUSION: 1. No evidence of deep venous thrombosis. John Anderson MD Abdomen X-Ray 10/12/15 0000 Signed Impressions: Service Date/Time: Monday, October 12, 2015 17:37 - CONCLUSION: 1. Gastrostomy tube in place 2. Unremarkable bowel gas pattern. Salazar Thurman MD Renal Ultrasound 10/07/15 0000 Signed Impressions: Service Date/Time: Wednesday, October 07, 2015 18:29 - CONCLUSION: 1. No acute findings. 3.6 cm left renal cyst. Putnam catheter in bladder. Amaury Ellsworth MD Tunnelled Chest Tube Removal 08/05/15 1100 Signed Impressions: Service Date/Time: Wednesday, August 05, 2015 11:00 - CONCLUSION: Uncomplicated chest tube removal. Blaine Jackson MD Chest Tube Change 07/31/15 0000 Signed Impressions: Service Date/Time: Friday, July 31, 2015 14:34 - CONCLUSION: Uncomplicated reposition of previously placed chest tube as above. Blaine Jackson MD Chest Tube Insertion 07/30/15 0000 Signed Impressions: Service Date/Time: July 14:50 - CONCLUSION: Uncomplicated chest tube placement as above. Blaine Jackson MD Catheter Change 07/27/15 0000 Signed Impressions: Service Date/Time: Monday, July 27, 2015 14:43 - CONCLUSION: Uncomplicated gastrostomy tube exchange as above. Blaine Jackson MD Chest CT 07/11/15 0000 Signed Impressions: Service Date/Time: Saturday, July 11, 2015 09:49 - CONCLUSION: Scattered patchy densities significantly improved from previous study. Tiny anterior right basilar pneumothorax. Right-sided chest tube in good position. Néstor Matamoros MD Head CT 06/18/151902 Signed Impressions: Service Date/Time: June 19:31 - CONCLUSION: Diffuse atrophy unchanged. No acute intracranial findings. Kush Briscoe MD Abdomen/Pelvis CT 06/18/151902 Signed Impressions: Service Date/Time: June 19:36 - CONCLUSION: 1. Chronic nonspecific urinary bladder wall thickening. Bladder collapsed with Putnam catheter in place. 2. Chronic bilateral mid to lower lung zone groundglass opacity. 3. Nonobstructing left renal calculus. 4. Distended rectum. Kush Briscoe MD Objective Remarks GENERAL: 54-year-old male, cachectic, debilitated with contractures on ventilator via trach. HEENT: NC/AT. PERRL. MMM. OP without erythema or exudates NECK: No JVD. Supple. 8.0 Distal XLT trach in place CARDIAC: RRR. S1/S2. No S4. No murmurs, clicks gallops or rubs. LUNGS: B/L equal air entry PSV 12/5 ABDOMEN: S/NT/ND. Positive BS EXTREMITIES: 1+ dependent pedal edema. Contractures and deformities of fingers. Stage III coccyx/sacral decubitus ulcer NEUROLOGY: Patient with significant contractures of the bilateral lower extremity, upper extremities. Eyes open spontaneously. Temporal and facial muscle wasting, muscular atrophy all extremities. Procedures 07/26- PEG replacement 07/29- right pigtail catheter placement for new pneumothorax Urinary Catheter: Yes Assessment to: Continue Date of Insertion: Oct 05, 2015 A/P Assessment and Plan Neuro/Psych: Parkinson's disease Cognitive disorder Chronic encephalopathy Dementia Depression Contractures On no sedation, monitor neuro status. CT head 06/18/15: - diffuse atrophy unchanged. No acute intracranial findings Continue Sinemet 25/100 q8 via PEG, Seroquel 50 mg twice a day, olanzapine 5 mg a night, Klonopin 2 mg every 8 hours, Paxil 20 daily Continue Lortab when necessary pain and fentanyl patch 50 g every 3 days for pain management. Fentanyl bolus prn breakthrough pain or if needed for turning/ nursing care/etc. Resp: Acute on chronic respiratory failure Chronic trach #8 Shiley distal XLT Pneumonia, aspiration (ESBL Klebsiella and Pseudomonas pneumonia) Right pneumothorax status post pigtail catheter 2 (resolved) Continue with vent support keep sat >90%. Ventilator bundle, pulm toilet, trach care, daily SBT, TP if patient tolerates if PS gets to 09/[address] Restrepo following. On Prednisone 60mg daily Exchanged to 8 Distal XLT on 08/15 to facilitate suctioning, trach care. Bronchodilators ( DuoNeb) CXR 10/18, 10/26: No acute pulmonary infiltrates Cardiac History of orthostasis History of CAD History dyslipidemia History of hypertension Continue Midodrine 5 mg BID Monitor HR and BP keep MAP>65mmHg. GI: Chronic moderate protein energy malnutrition Dysphagia Status post PEG Internal hemorrhoids Gastroesophageal reflux disease - TF Jevity 1.5 with goal rate 60ml/hr, on Reglan 5mg Q8 PRN for high residuals. - On Prevacid 30 mg per PEG tube daily for GERD - 10/11 KUB abdomen: PEG tube in place. Unremarkable bowel gas pattern. FEN/Renal: Nonobstructing left renal calculus - Monitor renal function, I/O's. electrolytes replacement per protocol. ID: Aspiration pneumonia Cele UTI 10/19 Sputum: Pseudomonas- likely colonized 10/19 urine cx: Yeast species 10/12 BC: NGTD 10/11 BC: NGTD 10/11 Urine cx: C. Tropicalis 10/11 Sputum: ESBL Klebsiella and Pseudomonas pneumonia 10/10 Urine: C. Tropicalis 09/21 Urine cx: Pseudomonas ? colonized 09/19 Sputum cx: Pseudomonas, Kleb pneumonia ESBL pos Candiduria (cele tropicalis urine cx 08/17) ESBL positive Klebsiella/Pseudomonas pneumonia Stenotrophomonas in sputum 08/17 MRSA colonization Sepsis UTI Klebsiella ESBL positive (has been treated) Off abx s/p ( Merrem finished 10 day course 10/23) monitor for signs of infections ( Fever, WBC) ID service is following- Dr. Enoc Moss. Slight increase in WBC. CXR 10/26 no acute changes. Endo: On SSI ( medium) with accuchecks Q6. Heme Normocytic Anemia - Monitor CBC MSK Bilateral lower extremity Contractures Stage III sacral decubitus present on admission - Wound care and PT on case Prophylaxis - GI - Prevacid - DVT - SCDs/ Lovenox. ACCESS: PIVs Level 3 Hilario Kern MD Oct 27, 2015 11:32
--- NOTE | 2015-10-27 18:10 | HHI.PR ---
Subjective Remarks 54 YOWM with ChRF,Trach, multiple uti No fever Gets anxious. No Fever Mod amount of trach secretions. tolerating CPAP Tolerates TF no New complaint Objective Vital Signs Vital Signs Date Time Temp Pulse Resp B/P Pulse Ox O2 Delivery O2 Flow Rate FiO2 10/27/15 16:00 74 10/27/15 16:00 97.9 68 20 122/85 99 10/27/15 16:00 35 10/27/15 16:00 100 35 10/27/15 14:00 68 10/27/15 12:00 97.9 68 20 122/85 99 10/27/15 12:00 35 10/27/15 12:00 68 10/27/15 11:31 100 35 10/27/15 10:00 85 10/27/15 08:51 100 35 10/27/15 08:51 35 10/27/15 08:00 85 10/27/15 08:00 98.9 86 24 105/70 100 10/27/15 08:00 35 10/27/15 06:00 84 10/27/15 04:37 100 35 10/27/15 04:00 85 10/27/15 04:00 35 10/27/15 04:00 98.4 85 27 126/90 100 10/27/15 02:00 92 10/27/15 01:43 100 35 10/27/15 00:00 94 10/27/15 00:00 98.9 94 20 107/77 100 10/27/15 00:00 35 10/26/15 22:25 100 35 10/26/15 22:00 95 10/26/15 20:29 100 35 10/26/15 20:00 101 10/26/15 20:00 35 10/26/15 20:00 99.4 101 27 97/69 100 I/O 10/26/15 10/26/15 10/26/15 10/27/15 10/27/15 10/27/15 07:00 15:00 23:00 07:00 15:00 23:00 Intake Total 174 ml 402 ml 742 ml 667 ml 550 ml Output Total 350 ml 350 ml 775 ml 250 ml 300 ml Balance -176 ml 52 ml -33 ml 417 ml 250 ml Intake Oral 2 ml 0 ml 0 ml 0 ml IV Total 0 ml 0 ml 0 ml 0 ml Tube Feeding 174 ml 400 ml 502 ml 427 ml 400 ml Other 240 ml 240 ml 150 ml Output Urine Total 350 ml 350 ml 775 ml 250 ml 300 ml # Bowel Movements 1 1 1 Result Diagram: 10/26/1563810/26/15638 Objective Remarks GENERAL: MBMN male on Vent. SKIN: Warm and dry. HEAD: Normocephalic. EYES: No scleral icterus. No injection or drainage. NECK: Supple, trachea midline. No JVD or lymphadenopathy. has trach CARDIOVASCULAR: Regular rate and rhythm without murmurs, gallops, or rubs. RESPIRATORY: Breath sounds equal bilaterally. No accessory muscle use. GASTROINTESTINAL: Abdomen soft, non-tender, nondistended. PEG tube in place MUSCULOSKELETAL: No cyanosis, or edema. BACK: Nontender without obvious deformity. No CVA tenderness. A/P Assessment and Plan VDRF S/P Trach Parkinson's diasease Dementia Aspiration PLAN: TF Cont CPAP Abx Per ID ACV prn sob, techypnoea. Trach care Cont Abx Severiano Ag MD Oct 27, 2015 18:10
[2015-10-27] MEDS: OLANZapine 5 MG TAB GT SCH (22:54)
[2015-10-27] MEDS: ENOXAPARIN SODIUM 40 MG/0.4 ML SYRINGE SQ SCH (22:55)
[2015-10-28] VITALS (19 sets, daily range): BP systolic 108–132; BP diastolic 71–92; PULSE 75–98; RESP 22–29; TEMP 97.4–98.4; O2SAT 100
[2015-10-28 05:55] LABS: AUTOMATED NEUTROPHIL # 8.9 TH/MM3 (1.8-7.7); BASOPHIL % 0.1 % (0.0-2.0); EOSINOPHIL # 0.1 TH/MM3 (0-0.4); EOSINOPHIL % 0.5 % (0.0-4.0); HEMATOCRIT 35.1 % (39.0-51.0); HEMO FLAGS DIFF FINAL; LYMPH % 12.6 % (9.0-44.0); LYMPHOCYTE # 1.4 TH/MM3 (1.0-4.8); MEAN CELL VOLUME 82.4 FL (80.0-100.0); MEAN CORPUSCULAR HEMOGLOBIN 27.1 PG (27.0-34.0); MEAN CORPUSCULAR HGB CONC 32.8 % (32.0-36.0); MONO % 5.8 % (0.0-8.0); PLATELET COUNT 192 TH/MM3 (150-450); RED BLOOD COUNT 4.26 MIL/MM3 (4.50-5.90); RED CELL DISTRIBUTION WIDTH 18.7 % (11.6-17.2); WHITE BLOOD COUNT 10.9 TH/MM3 (4.0-11.0)
[2015-10-28] MEDS: INSULIN NovoLIN REGULAR SUPPLEMENTAL SCALE SQ SCH ×4 (06:31→18:11)
[2015-10-28] MEDS: clonazePAM 1 MG TAB PO SCH ×3 (06:31→22:24)
[2015-10-28] MEDS: CARBIDOPA/LEVODOPA 25 MG/100 MG TAB GT SCH ×3 (06:31→22:24)
[2015-10-28] MEDS: RESP: ALBUTEROL 2.5 MG/IPRATROPIUM 0.5 MG NEB (SCH) INH ×2 (08:01→11:27)
--- NOTE | 2015-10-28 08:28 | HHI.CCPN ---
Subjective Remarks/Hospital Course 06/17: Pt is a 54 yr man with multiple medical problems including Parkinson's disease, advanced dementia, hyponatremia, anxiety, pneumonia, GERD, cognitive disorder, and multidrug resistant UTI- ESBL02/19/15 , who resides in a [facility]. Pt by report was found by staff in [facility] to be less alert and having respiratory difficultly and fevers. Pt was brought to ED adn placed on ventilator. His workup was inclusive of labs, chest xray and ct head and abd/pelvis. WBC 16.4, +UTI, lactic acid 4, troponin ,0.02, BUN/ cre 18/ 0.76. CT head 06/18/15: diffuse atrophy unchanged. No acute intracranial findings ct abd/ pelvis with IV contrast: 06/18/15 Conclusion: 1. Chronic nonspecific urinary bladder wall thickening. Bladder collapsed with Putnam catheter in place. 2.Chronic bilateral mid to lower zone groundglass opacity. 3. Nonobstructing left renal calculus. 4. Distended rectum Pt admitted and fluid and abx ordered. 06/18: Drowsy, easily arousable. On mechanical ventilation via tracheostomy. Tachypneic. Resting tremor noted. 06/19: Drowsy, arousable. On mechanical ventilation via tracheostomy. 06/20: Drowsy, arousable. Remains on mechanical ventilation via tracheostomy. We'll repeat blood cultures, UA and urine cultures. Fluconazole IV added in view of yeast in urine. 07/06: Reconsulted as patient return to the ventilator on a right ventricular due to tachypnea. Low-grade temperatures. Tolerating tube feeding. Extremity encephalopathic demented patient with difficult neurological examination. 07/07: Status post chest tube placement by IR for right pneumothorax 07/06. Afebrile. Tolerating tube feeds. Positive BM. Currently tachypneic on the ventilator. Does not appear to be any acute distress. 07/08: Afebrile. Tolerating tube feeding. He is comfortable currently on CPAP trials 11/10. Positive BM. 07/09: Afebrile. Tolerating tube feeding. Appears comfortable on T bar. Positive BM. 07/10: Afebrile. Eyes are open. Remained on T piece overnight. Tolerating tube feeding. 07/11: MAXIMUM TEMPERATURE 100. Currently 98.6. Eyes are open. On ACV overnight secondary to "tachypnea and sweating". Switching back to PSV trials today. Goal is T piece during daytime, CPAP at night. 07/12: No acute events overnight. On PSV 15/5 -attempt TP up to 6 hours today. No pneumothorax on chest x-ray 07/13: Placed back on full ventilator support for tachypnea. Otherwise clinically unchanged. No fever today 07/14: Patient was on T piece yesterday evening, placed back on PSV overnight, patient mechanical ventilation this morning. Patient appears to be struggling with mechanical ventilation. Patient placed back on PSV with improvement 07/15: Patient placed back on mechanical ventilation last evening due to respiratory rate. It was indicated patient was tachypnea can the 40s. Patient on mechanical ventilation this time with respiration rate mid 20s. Chest tube still in place without any output, chest x-ray still indicating resolution of pneumothorax. 07/16: Patient seen and examined today. Patient placed back on mechanical ventilation overnight due to respiratory rate. Even on mechanical ventilation patient has respiration rate in the 30s. Patient afebrile, blood pressure stable. Continue vent weaning 07/17: Patient seen and examined. Currently afebrile. Currently on CPAP 15/5 @ 40%. Patient is awake with open mouth resting in bed in no apparent acute distress. Tolerating tube feeding. 2 bowel movements. 07/18: No neurological changes. Afebrile. 2 bowel moments. Tolerating tube feeding. We'll attempt TP trials today. On CPAP since 07/15 07/19 No events overnight. On CPAP with PS: 10, PEEP: 5 and FIO2 35%. Afebrile. On no sedation. 07/20 No events overnight. Tolerating CPAP. Afebrile. 07/21: Remains on CPAP. Attempt T piece trial today. Afebrile. One bowel movement. Tolerating tube feeding. 07/22: Afebrile. Positive BM. Tolerating tube feeding. Noted switched tracheostomy to #6 Shiley cuffed fenestrated. Neurologically unchanged 07/23: Afebrile. Positive BM. Tolerating tube feeding. Questionable leak in exchange trach. Place back on a rate/ACV overnight. Insufflated seems to be doing better at the present time. Will check chest x-ray. Possible he might need #6 XLT versus replacement of chronic #8 Shiley. 07/24: Tolerating TP today, RR in low 30s patient appears comfortable. No acute events overnight 07/25: Remains off the ventilator more than 36 hours now. Intermittently tachypneic probably breathing. Chest x-ray was clear yesterday. No acute events reported overnight. PEG not functioning per RN 08/02: Patient was transferred back to critical care service due to continuing ventilator management, tachypnea. Patient clinical status with no significant change. Patient with low-grade fever 100.2, 08/03: Patient seen and examined today. No significant change in clinical status. Patient still with chronic tachypnea. Patient afebrile now. 08/04: Patient seen and examined today. No change in clinical status. Patient still continues to have chronic tachypnea. Patient afebrile. Continue vent weaning 08/05: Patient seen and examined today. Patient had chest tube removed yesterday , chest x-ray shows redevelopment of pneumothorax. Chest tube replaced. Otherwise, patient still on ventilator with tachypnea. Afebrile 08/06: Patient seen and examined today. Patient went to have chest tube placed, repeat chest x-ray did not indicate any pneumothorax. No overnight events. We' ll need to pursue LTAC placement 08/07 No events overnight. On ventilator via trach. Afebrile. 08/08 Patient tolerated CPAP x4 hrs yesterday. Afebrile. On no sedation. 08/09 No events overnight. Tolerated CPAP x 12 hrs yesterday. Afebrile. 08/10 Patient tolerated TP's x 12 hrs yesterday back on ACV overnight. 08/11 No events overnight, currently on TP's with 40% FIO2. Afebrile. 08/12 On CPAP 10/5. Tolerated Tpiece 3 hours earlier today. Afebrile. 08/13 On CPAP 10/5. Not tolerating CPAP as well over last few days and RT notes challenge with suctioning respiratory secretions adequately. Discussing with healthcare proxy regarding exchange trach to 8.0. 08/14 Nursing and RT staff having continued difficulty suctioning respiratory secretions via 6.0 tracheostomy. KAREN Garcia did not consent to stoma dilation and trach upsize yesterday but said she would call back and let me know but no return call. Contacted again today and left a message. Afebrile. On CPAP 10/5. Brow furrowing on exam, appears to be in pain but pain not localizable. Tolerating tube feeds, had BM yesterday 08/15 Not tolerating CPAP today. Contacted healthcare surrogate again and discussed need for trach change. She consented and trach was dilated and up- sized to 8.0 Distal XLT to facilitate pulmonary toilet and to address volume leak. 08/16 No events overnight. Remains on ventilator via trach. Afebrile. Tolerating TF. 08/17 No events overnight. Afebrile. 08/18 Patient tolerated CPAP x 4 hrs yesterday. Afebrile.On ventilator via trach. 08/19 On CPAP 25/06. Temp max 99.3 08/20 Stenotrophomonas in sputum, started on Levaquin per ID. Temp max 99.8. On CPAP 20/09. Tube feeds were held because PEG was clogged but now PEG is functioning. 08/21 No events overnight. Afebrile. Remains on ventilator via trach. Has been tolerating CPAP trials for last 2 days. 08/22 No events overnight. Afebrile , Has been on CPAP all night with PS: 20, PEEP; 5 and FIO2 35%. 08/23 No events overnight. Remains on CPAP, T:99.9 08/24 No events overnight. On CPAP PS 10, PEEP; 5 and FIO2 35% overnight. Afebrile. 08/25 No events overnight. Afebrile. On CPAP overnight with PS 8, PEEP: 5 and FIO2 35%, afebrile. Tolerating TF. 08/26 Tolerating Tpiece. 08/27 Tolerated Tpiece yesterday and overnight. However this evening desaturated and was placed back on CPAP. Dr. Mistry attempted to update daughter Radha Foreman and discuss his overall poor prognosis for recovery, but call got disconnected midway through call and could not reach her back 08/28 On PSV 10/5 40% today. Afebrile. 08/29 On CPAP overnight. Now on Tpiece 70% per pulmonology. Increased yellow secretions noted. Temp max 99.1 Nursing staff expresses concern that he appears uncomfortable during all nursing care. Called elsa Garcia to update , no answer, left message to call me. 08/30: On CPAP overnight. Currently on T piece at 45%. Currently afebrile. Positive BM. Tolerating tube feeding. 08/31: On CPAP overnight. Will return T piece at 35%. MAXIMUM TEMPERATURE 99.6. 5 bowel movements. Tolerating tube feeds. Neurological examination unchanged. 09/01: Tmax 99.2. Currently afebrile. Currently in TPs at 35%. 7 bowel movement overnight. Tolerating tube feeding. Subjective: 09/19: Ciarra called secondary to aspiration on Gen. medical floor. Transfer to ICU and placed on mechanical ventilation. ABG shows CO2 retention. Etc. revealed no acute cardiac 20 finds however copious message to feed suctioned from trach tube 09/20 No events overnight. Afebrile. On ACV with RR 16, TV 500, PEEP: 5 and FIO2 40%. 09/21 No events overnight. Afebrile. 09/22 No events overnight. Tolerated CPAP all day yesterday with PS 12, PEEP:5 and FIO2 35%. Afebrile. 09/23 No events overnight. On no sedation Tolerated CPAP yesterday. Had T:100.3 last night. 09/24 Patient tolerated TP's x 6 hrs yesterday On CPAP 12/5 with 35% FIO2 overnight. Afebrile. 09/25 No events overnight. On CPAP overnight and TP's during day. Tolerating tube feeds. 10/11 Reconsult: Ciarra was called as patient was found hypotensive with SBP 80' s and tube feeds coming from trach site. Patient is receiving 1L bolus NS and STAT CXR showed mild pulm edema. On arrival to ICU patient was connected to ventilator ( On ACV RR 16, TV 500, PEEP:5 and FIO2 40% with sats 95%. Current BP 125/91 , P:81 10/12 Patient remains on ventilator overnight. Borderline low BP with MAP ranges 67-72. Afebrile. On no sedation. 10/13 Patient is on ventilator via trach, afebrile, WBC trending down. Patient was hypotensive yesterday responded to fluid resuscitation not on any pressors. 10/14: No acute events overnight. WBC count has normalized. Will start SBT as tolerated. CXR in am 10/15 No acute events overnight. Phosphorus low needs replacement. Otherwise neuro exam remains unchanged. remains on CPAP 10/16 Patient remains on ventilator via trach. On no sedation. Afebrile. 10/17 No acute events overnight. On ventilator via trach. Afebrile. 10/18 Tolerates CPAP, but unable to wean further. Otherwise no acute events overnight, remains afebrile 10/19 Patient is on ventilator via trach, UO 175ml in last 7 hrs. Afebrile. Tolerated CPAP x 6 hrs yesterday. 10/20 No acute events overnight. Tolerated CPAP for several hrs yesterday. Afebrile. UO better ( 1275ml in 24hrs). Given 1L NS total yesterday for decrease UO. 10/21 Patient is on ventilator via trach tolerated CPAP for most of day yesterday. Afebrile. Tolerating tube feeds. 10/22 No acute events overnight. Patient was on CPAP all day yesterday. Afebrile. 10/23 Patient tolerated all day yesterday. On ventilator via trach. Afebrile. 10/24 Patient remains on ventilator via trach. Afebrile. 10/25 Remains on vent on PSV 15/5. No acute events overnight. WBC slightly increased 10/26 PSV reduced to 10/5. Required AC/VC support yesterday as patient became tachypneic. No other changes 10/27 no acute changes overnight. Tolerating 10 over 5 PSV. WBC count has normalized, T piece today Objective - Vital Signs Date Time Temp Pulse Resp B/P Pulse Ox O2 Delivery O2 Flow Rate FiO2 10/28/15 08:02 100 35 10/28/15 06:00 75 10/28/15 04:00 98.4 23 114/81 Intake and Output 10/27/15 10/27/15 10/28/15 08:00 16:00 00:00 Intake Total 667 ml 550 ml 1024 ml Output Total 250 ml 300 ml 575 ml Balance 417 ml 250 ml 449 ml Result Diagram: 10/28/15 0511 10/26/15 0639 Other Results Laboratory Tests Test 10/25/15 06:11 White Blood Count 14.1 TH/MM3 Red Blood Count 4.23 MIL/MM3 Hemoglobin 11.2 GM/DL Hematocrit 34.8 % Mean Corpuscular Volume 82.3 FL Mean Corpuscular Hemoglobin 26.4 PG Mean Corpuscular Hemoglobin 32.1 % Concent Red Cell Distribution Width 18.3 % Platelet Count 205 TH/MM3 Mean Platelet Volume 9.4 FL Neutrophils (%) (Auto) 85.4 % Lymphocytes (%) (Auto) 9.3 % Monocytes (%) (Auto) 5.1 % Eosinophils (%) (Auto) 0.1 % Basophils (%) (Auto) 0.1 % Neutrophils # (Auto) 12.0 TH/MM3 Lymphocytes # (Auto) 1.3 TH/MM3 Monocytes # (Auto) 0.7 TH/MM3 Eosinophils # (Auto) 0.0 TH/MM3 Basophils # (Auto) 0.0 TH/MM3 CBC Comment DIFF FINAL Differential Comment Sodium Level 138 MEQ/L Potassium Level 3.9 MEQ/L Chloride Level 100 MEQ/L Carbon Dioxide Level 30.4 MEQ/L Anion Gap 8 MEQ/L Blood Urea Nitrogen 18 MG/DL Creatinine 0.41 MG/DL Estimat Glomerular Filtration 220 ML/MIN Rate Random Glucose 122 MG/DL Calcium Level 8.8 MG/DL Imaging Last Impressions Chest X-Ray 10/19/15 0000 Signed Impressions: Service Date/Time: Monday, October 19, 2015 12:15 - CONCLUSION: No acute pulmonary infiltrates. Ilir Agosto MD Upper Extremity Ultrasound 10/13/15 0000 Signed Impressions: Service Date/Time: Tuesday, October 13, 2015 09:51 - CONCLUSION: 1. No evidence of deep venous thrombosis. John Anderson MD Abdomen X-Ray 10/12/15 0000 Signed Impressions: Service Date/Time: Monday, October 12, 2015 17:37 - CONCLUSION: 1. Gastrostomy tube in place 2. Unremarkable bowel gas pattern. Salazar Thurman MD Renal Ultrasound 10/07/15 0000 Signed Impressions: Service Date/Time: Wednesday, October 07, 2015 18:29 - CONCLUSION: 1. No acute findings. 3.6 cm left renal cyst. Putnam catheter in bladder. Amaury Ellsworth MD Tunnelled Chest Tube Removal 08/05/15 1100 Signed Impressions: Service Date/Time: Wednesday, August 05, 2015 11:00 - CONCLUSION: Uncomplicated chest tube removal. Blaine Jackson MD Chest Tube Change 07/31/15 0000 Signed Impressions: Service Date/Time: Friday, July 31, 2015 14:34 - CONCLUSION: Uncomplicated reposition of previously placed chest tube as above. Blaine Jackson MD Chest Tube Insertion 07/30/15 0000 Signed Impressions: Service Date/Time: July 14:50 - CONCLUSION: Uncomplicated chest tube placement as above. Blaine Jackson MD Catheter Change 07/27/15 0000 Signed Impressions: Service Date/Time: Monday, July 27, 2015 14:43 - CONCLUSION: Uncomplicated gastrostomy tube exchange as above. Blaine Jackson MD Chest CT 07/11/15 0000 Signed Impressions: Service Date/Time: Saturday, July 11, 2015 09:49 - CONCLUSION: Scattered patchy densities significantly improved from previous study. Tiny anterior right basilar pneumothorax. Right-sided chest tube in good position. Néstor Matamoros MD Head CT 06/18/151902 Signed Impressions: Service Date/Time: June 19:31 - CONCLUSION: Diffuse atrophy unchanged. No acute intracranial findings. Kush Briscoe MD Abdomen/Pelvis CT 06/18/151902 Signed Impressions: Service Date/Time: June 19:36 - CONCLUSION: 1. Chronic nonspecific urinary bladder wall thickening. Bladder collapsed with Putnam catheter in place. 2. Chronic bilateral mid to lower lung zone groundglass opacity. 3. Nonobstructing left renal calculus. 4. Distended rectum. Kush Briscoe MD Objective Remarks GENERAL: 54-year-old male, cachectic, debilitated with contractures on ventilator via trach. HEENT: NC/AT. PERRL. MMM. OP without erythema or exudates NECK: No JVD. Supple. 8.0 Distal XLT trach in place CARDIAC: RRR. S1/S2. No S4. No murmurs, clicks gallops or rubs. LUNGS: B/L equal air entry PSV 10/5 ABDOMEN: S/NT/ND. Positive BS EXTREMITIES: 1+ dependent pedal edema. Contractures and deformities of fingers. Stage III coccyx/sacral decubitus ulcer NEUROLOGY: Patient with significant contractures of the bilateral lower extremity, upper extremities. Eyes open spontaneously. Temporal and facial muscle wasting, muscular atrophy all extremities. Procedures 07/26- PEG replacement 07/29- right pigtail catheter placement for new pneumothorax Date of Insertion: Oct 05, 2015 A/P Assessment and Plan Neuro/Psych: Parkinson's disease Cognitive disorder Chronic encephalopathy Dementia Depression Contractures On no sedation, monitor neuro status. CT head 06/18/15: diffuse atrophy unchanged. No acute intracranial findings Continue Sinemet 25/100 q8 via PEG, Seroquel 50 mg twice a day, olanzapine 5 mg a night, Klonopin 2 mg every 8 hours, Paxil 20 daily Continue Lortab when necessary pain and fentanyl patch 50 g every 3 days for pain management. Fentanyl bolus prn breakthrough pain or if needed for turning/ nursing care/etc. Resp: Acute on chronic respiratory failure Chronic trach #8 Shiley distal XLT Pneumonia, aspiration (ESBL Klebsiella and Pseudomonas pneumonia) Right pneumothorax status post pigtail catheter 2 (resolved) Continue with vent support keep sat >90%. Ventilator bundle, pulm toilet, trach care, daily SBT, TP today 2-[address] Restrepo following. On Prednisone 60mg daily Exchanged to 8 Distal XLT on 08/15 to facilitate suctioning, trach care. Bronchodilators ( DuoNeb) CXR 10/18, 10/26: No acute pulmonary infiltrates Cardiac History of orthostasis History of CAD History dyslipidemia History of hypertension Continue Midodrine 5 mg BID Monitor HR and BP keep MAP>65mmHg. GI: Chronic moderate protein energy malnutrition Dysphagia Status post PEG Internal hemorrhoids Gastroesophageal reflux disease - TF Jevity 1.5 with goal rate 60ml/hr, on Reglan 5mg Q8 PRN for high residuals. - On Prevacid 30 mg per PEG tube daily for GERD - 10/11 KUB abdomen: PEG tube in place. Unremarkable bowel gas pattern. FEN/Renal: Nonobstructing left renal calculus - Monitor renal function, I/O's. electrolytes replacement per protocol. ID: Aspiration pneumonia Cele UTI 10/19 Sputum: Pseudomonas- likely colonized 10/19 urine cx: Yeast species 10/12 BC: NGTD 10/11 BC: NGTD 10/11 Urine cx: C. Tropicalis 10/11 Sputum: ESBL Klebsiella and Pseudomonas pneumonia 10/10 Urine: C. Tropicalis 09/21 Urine cx: Pseudomonas ? colonized 09/19 Sputum cx: Pseudomonas, Kleb pneumonia ESBL pos Candiduria (cele tropicalis urine cx 08/17) ESBL positive Klebsiella/Pseudomonas pneumonia Stenotrophomonas in sputum 08/17 MRSA colonization Sepsis UTI Klebsiella ESBL positive (has been treated) Off abx s/p ( Merrem finished 10 day course 10/23) monitor for signs of infections ( Fever, WBC) ID service is following as needed- Dr. Enoc Moss. Slight increase in WBC. CXR 10/26 no acute changes. Endo: On SSI ( medium) with accuchecks Q6. Heme Normocytic Anemia - Monitor CBC MSK Bilateral lower extremity Contractures Stage III sacral decubitus present on admission - Wound care and PT on case Prophylaxis - GI - Prevacid - DVT - SCDs/ Lovenox. ACCESS: PIVs Level 3 Hilario Kern MD Oct 28, 2015 08:28
[2015-10-28] MEDS: SODIUM CHLORIDE 0.9% FLUSH 5 ML FLUSH IVF SCH ×2 (09:00→22:31)
[2015-10-28] MEDS: LANSOPRAZOLE SOLUTAB 30 MG TAB NG SCH (09:18)
[2015-10-28] MEDS: LACTOBACILLUS ACIDOPHILUS TAB PO SCH ×3 (09:18→17:55)
[2015-10-28] MEDS: PARoxetine HCL 20 MG TAB G-TUBE SCH (09:18)
[2015-10-28] MEDS: GABAPENTIN 300 MG CAP G-TUBE SCH ×2 (09:18→22:24)
[2015-10-28] MEDS: predniSONE 20 MG TAB PO SCH (09:19)
[2015-10-28] MEDS: ARTIFICIAL TEARS OPTH SOLN 15 ML BTL EACH EYE SCH ×3 (09:19→17:55)
[2015-10-28] MEDS: QUEtiapine FUMARATE 25 MG TAB G-TUBE SCH ×2 (09:19→22:24)
[2015-10-28] MEDS: COLLAGENASE OINT 30 GM TUBE TOP SCH (09:19)
[2015-10-28] MEDS: MIDODRINE 5 MG TAB G-TUBE SCH ×2 (09:19→22:24)
[2015-10-28] MEDS: CHLORHEXIDINE 0.12% (ORAL KIT) 15 ML CUP MT SCH ×2 (09:20→22:25)
--- NOTE | 2015-10-28 19:36 | HHI.PR ---
Subjective Remarks 54 YOWM with ChRF,Trach, multiple uti No fever Gets anxious. No Fever Mod amount of trach secretions. tolerating CPAP Tolerates TF Objective Vital Signs Vital Signs Date Time Temp Pulse Resp B/P Pulse Ox O2 Delivery O2 Flow Rate FiO2 10/28/15 18:00 87 10/28/15 16:00 97.4 85 27 119/81 100 10/28/15 16:00 35 10/28/15 16:00 85 10/28/15 15:37 100 35 10/28/15 14:00 84 10/28/15 12:00 97.7 83 22 108/71 100 10/28/15 12:00 83 10/28/15 12:00 35 10/28/15 11:28 100 35 10/28/15 10:00 84 10/28/15 08:02 100 35 10/28/15 08:00 97.4 98 29 116/79 100 10/28/15 08:00 35 10/28/15 08:00 98 10/28/15 06:00 75 10/28/15 04:05 100 35 10/28/15 04:00 75 10/28/15 04:00 35 10/28/15 04:00 98.4 75 23 114/81 100 10/28/15 02:00 82 10/28/15 01:11 100 35 10/28/15 00:00 35 10/28/15 00:00 98.4 82 23 124/88 100 10/28/15 00:00 82 10/27/15 22:40 100 35 10/27/15 22:00 77 10/27/15 20:00 77 10/27/15 20:00 97.2 77 27 122/78 100 10/27/15 20:00 35 10/27/15 19:57 100 35 I/O 10/27/15 10/27/15 10/27/15 10/28/15 10/28/15 10/28/15 07:00 15:00 23:00 07:00 15:00 23:00 Intake Total 667 ml 550 ml 1024 ml 294 ml 666 ml Output Total 250 ml 300 ml 575 ml 575 ml 525 ml Balance 417 ml 250 ml 449 ml -281 ml 141 ml Intake Oral 0 ml 0 ml 0 ml 0 ml 0 ml IV Total 0 ml 0 ml 0 ml 0 ml 0 ml Tube Feeding 427 ml 400 ml 944 ml 234 ml 466 ml Tube Irrigant 80 ml 60 ml 200 ml Other 240 ml 150 ml Output Urine Total 250 ml 300 ml 575 ml 575 ml 525 ml # Bowel Movements 1 1 1 2 Result Diagram: 10/28/15 0511 10/26/15 0639 Objective Remarks GENERAL: MBMN male on Vent. SKIN: Warm and dry. HEAD: Normocephalic. EYES: No scleral icterus. No injection or drainage. NECK: Supple, trachea midline. No JVD or lymphadenopathy. has trach CARDIOVASCULAR: Regular rate and rhythm without murmurs, gallops, or rubs. RESPIRATORY: Breath sounds equal bilaterally. No accessory muscle use. GASTROINTESTINAL: Abdomen soft, non-tender, nondistended. PEG tube in place MUSCULOSKELETAL: No cyanosis, or edema. BACK: Nontender without obvious deformity. No CVA tenderness. A/P Assessment and Plan VDRF S/P Trach Parkinson's diasease Dementia Aspiration PLAN: TF Cont CPAP ACV prn sob, techypnoea. Trach care Cont Abx Severiano Ag MD Oct 28, 2015 19:36
[2015-10-28] MEDS: OLANZapine 5 MG TAB GT SCH (22:24)
[2015-10-28] MEDS: ENOXAPARIN SODIUM 40 MG/0.4 ML SYRINGE SQ SCH (22:25)
[2015-10-29] VITALS (20 sets, daily range): BP systolic 106–157; BP diastolic 72–96; PULSE 79–94; RESP 17–34; TEMP 97.6–98.2; O2SAT 100
[2015-10-29] MEDS: INSULIN NovoLIN REGULAR SUPPLEMENTAL SCALE SQ SCH ×4 (06:30→18:35)
[2015-10-29] MEDS: clonazePAM 1 MG TAB PO SCH ×3 (06:35→20:54)
[2015-10-29] MEDS: CARBIDOPA/LEVODOPA 25 MG/100 MG TAB GT SCH ×3 (06:35→20:54)
[2015-10-29] MEDS: ARTIFICIAL TEARS OPTH SOLN 15 ML BTL EACH EYE SCH ×3 (08:32→18:33)
[2015-10-29] MEDS: COLLAGENASE OINT 30 GM TUBE TOP SCH (08:32)
[2015-10-29] MEDS: CHLORHEXIDINE 0.12% (ORAL KIT) 15 ML CUP MT SCH ×2 (08:32→20:53)
[2015-10-29] MEDS: LACTOBACILLUS ACIDOPHILUS TAB PO SCH ×3 (08:33→18:33)
[2015-10-29] MEDS: GABAPENTIN 300 MG CAP G-TUBE SCH ×2 (08:33→20:53)
[2015-10-29] MEDS: QUEtiapine FUMARATE 25 MG TAB G-TUBE SCH ×2 (08:33→20:54)
[2015-10-29] MEDS: MIDODRINE 5 MG TAB G-TUBE SCH ×2 (08:33→20:53)
[2015-10-29] MEDS: LANSOPRAZOLE SOLUTAB 30 MG TAB NG SCH (08:33)
[2015-10-29] MEDS: PARoxetine HCL 20 MG TAB G-TUBE SCH (08:33)
[2015-10-29] MEDS: predniSONE 20 MG TAB PO SCH (08:33)
[2015-10-29] MEDS: SODIUM CHLORIDE 0.9% FLUSH 5 ML FLUSH IVF SCH ×2 (08:33→20:54)
--- NOTE | 2015-10-29 11:07 | HHI.CCPN ---
Subjective Remarks/Hospital Course 06/17: Pt is a 54 yr man with multiple medical problems including Parkinson's disease, advanced dementia, hyponatremia, anxiety, pneumonia, GERD, cognitive disorder, and multidrug resistant UTI- ESBL02/19/15 , who resides in a skilled nursing. Pt by report was found by staff in skilled nursing to be less alert and having respiratory difficultly and fevers. Pt was brought to ED adn placed on ventilator. His workup was inclusive of labs, chest xray and ct head and abd/pelvis. WBC 16.4, +UTI, lactic acid 4, troponin ,0.02, BUN/ cre 18/ 0.76. CT head 06/18/15: diffuse atrophy unchanged. No acute intracranial findings ct abd/ pelvis with IV contrast: 06/18/15 Conclusion: 1. Chronic nonspecific urinary bladder wall thickening. Bladder collapsed with Putnam catheter in place. 2.Chronic bilateral mid to lower zone groundglass opacity. 3. Nonobstructing left renal calculus. 4. Distended rectum Pt admitted and fluid and abx ordered. 06/18: Drowsy, easily arousable. On mechanical ventilation via tracheostomy. Tachypneic. Resting tremor noted. 06/19: Drowsy, arousable. On mechanical ventilation via tracheostomy. 06/20: Drowsy, arousable. Remains on mechanical ventilation via tracheostomy. We'll repeat blood cultures, UA and urine cultures. Fluconazole IV added in view of yeast in urine. 07/06: Reconsulted as patient return to the ventilator on a right ventricular due to tachypnea. Low-grade temperatures. Tolerating tube feeding. Extremity encephalopathic demented patient with difficult neurological examination. 07/07: Status post chest tube placement by IR for right pneumothorax 07/06. Afebrile. Tolerating tube feeds. Positive BM. Currently tachypneic on the ventilator. Does not appear to be any acute distress. 07/08: Afebrile. Tolerating tube feeding. He is comfortable currently on CPAP trials 11/10. Positive BM. 07/09: Afebrile. Tolerating tube feeding. Appears comfortable on T bar. Positive BM. 07/10: Afebrile. Eyes are open. Remained on T piece overnight. Tolerating tube feeding. 07/11: MAXIMUM TEMPERATURE 100. Currently 98.6. Eyes are open. On ACV overnight secondary to "tachypnea and sweating". Switching back to PSV trials today. Goal is T piece during daytime, CPAP at night. 07/12: No acute events overnight. On PSV 15/5 -attempt TP up to 6 hours today. No pneumothorax on chest x-ray 07/13: Placed back on full ventilator support for tachypnea. Otherwise clinically unchanged. No fever today 07/14: Patient was on T piece yesterday evening, placed back on PSV overnight, patient mechanical ventilation this morning. Patient appears to be struggling with mechanical ventilation. Patient placed back on PSV with improvement 07/15: Patient placed back on mechanical ventilation last evening due to respiratory rate. It was indicated patient was tachypnea can the 40s. Patient on mechanical ventilation this time with respiration rate mid 20s. Chest tube still in place without any output, chest x-ray still indicating resolution of pneumothorax. 07/16: Patient seen and examined today. Patient placed back on mechanical ventilation overnight due to respiratory rate. Even on mechanical ventilation patient has respiration rate in the 30s. Patient afebrile, blood pressure stable. Continue vent weaning 07/17: Patient seen and examined. Currently afebrile. Currently on CPAP 15/5 @ 40%. Patient is awake with open mouth resting in bed in no apparent acute distress. Tolerating tube feeding. 2 bowel movements. 07/18: No neurological changes. Afebrile. 2 bowel moments. Tolerating tube feeding. We'll attempt TP trials today. On CPAP since 07/15 07/19 No events overnight. On CPAP with PS: 10, PEEP: 5 and FIO2 35%. Afebrile. On no sedation. 07/20 No events overnight. Tolerating CPAP. Afebrile. 07/21: Remains on CPAP. Attempt T piece trial today. Afebrile. One bowel movement. Tolerating tube feeding. 07/22: Afebrile. Positive BM. Tolerating tube feeding. Noted switched tracheostomy to #6 Shiley cuffed fenestrated. Neurologically unchanged 07/23: Afebrile. Positive BM. Tolerating tube feeding. Questionable leak in exchange trach. Place back on a rate/ACV overnight. Insufflated seems to be doing better at the present time. Will check chest x-ray. Possible he might need #6 XLT versus replacement of chronic #8 Shiley. 07/24: Tolerating TP today, RR in low 30s patient appears comfortable. No acute events overnight 07/25: Remains off the ventilator more than 36 hours now. Intermittently tachypneic probably breathing. Chest x-ray was clear yesterday. No acute events reported overnight. PEG not functioning per RN 08/02: Patient was transferred back to critical care service due to continuing ventilator management, tachypnea. Patient clinical status with no significant change. Patient with low-grade fever 100.2, 08/03: Patient seen and examined today. No significant change in clinical status. Patient still with chronic tachypnea. Patient afebrile now. 08/04: Patient seen and examined today. No change in clinical status. Patient still continues to have chronic tachypnea. Patient afebrile. Continue vent weaning 08/05: Patient seen and examined today. Patient had chest tube removed yesterday , chest x-ray shows redevelopment of pneumothorax. Chest tube replaced. Otherwise, patient still on ventilator with tachypnea. Afebrile 08/06: Patient seen and examined today. Patient went to have chest tube placed, repeat chest x-ray did not indicate any pneumothorax. No overnight events. We' ll need to pursue LTAC placement 08/07 No events overnight. On ventilator via trach. Afebrile. 08/08 Patient tolerated CPAP x4 hrs yesterday. Afebrile. On no sedation. 08/09 No events overnight. Tolerated CPAP x 12 hrs yesterday. Afebrile. 08/10 Patient tolerated TP's x 12 hrs yesterday back on ACV overnight. 08/11 No events overnight, currently on TP's with 40% FIO2. Afebrile. 08/12 On CPAP 10/5. Tolerated Tpiece 3 hours earlier today. Afebrile. 08/13 On CPAP 10/5. Not tolerating CPAP as well over last few days and RT notes challenge with suctioning respiratory secretions adequately. Discussing with healthcare proxy regarding exchange trach to 8.0. 08/14 Nursing and RT staff having continued difficulty suctioning respiratory secretions via 6.0 tracheostomy. KAREN Garcia did not consent to stoma dilation and trach upsize yesterday but said she would call back and let me know but no return call. Contacted again today and left a message. Afebrile. On CPAP 10/5. Brow furrowing on exam, appears to be in pain but pain not localizable. Tolerating tube feeds, had BM yesterday 08/15 Not tolerating CPAP today. Contacted healthcare surrogate again and discussed need for trach change. She consented and trach was dilated and up- sized to 8.0 Distal XLT to facilitate pulmonary toilet and to address volume leak. 08/16 No events overnight. Remains on ventilator via trach. Afebrile. Tolerating TF. 08/17 No events overnight. Afebrile. 08/18 Patient tolerated CPAP x 4 hrs yesterday. Afebrile.On ventilator via trach. 08/19 On CPAP 25/06. Temp max 99.3 08/20 Stenotrophomonas in sputum, started on Levaquin per ID. Temp max 99.8. On CPAP 20/09. Tube feeds were held because PEG was clogged but now PEG is functioning. 08/21 No events overnight. Afebrile. Remains on ventilator via trach. Has been tolerating CPAP trials for last 2 days. 08/22 No events overnight. Afebrile , Has been on CPAP all night with PS: 20, PEEP; 5 and FIO2 35%. 08/23 No events overnight. Remains on CPAP, T:99.9 08/24 No events overnight. On CPAP PS 10, PEEP; 5 and FIO2 35% overnight. Afebrile. 08/25 No events overnight. Afebrile. On CPAP overnight with PS 8, PEEP: 5 and FIO2 35%, afebrile. Tolerating TF. 08/26 Tolerating Tpiece. 08/27 Tolerated Tpiece yesterday and overnight. However this evening desaturated and was placed back on CPAP. Dr. Mistry attempted to update daughter Radha Foreman and discuss his overall poor prognosis for recovery, but call got disconnected midway through call and could not reach her back 08/28 On PSV 10/5 40% today. Afebrile. 08/29 On CPAP overnight. Now on Tpiece 70% per pulmonology. Increased yellow secretions noted. Temp max 99.1 Nursing staff expresses concern that he appears uncomfortable during all nursing care. Called elsa Garcia to update , no answer, left message to call me. 08/30: On CPAP overnight. Currently on T piece at 45%. Currently afebrile. Positive BM. Tolerating tube feeding. 08/31: On CPAP overnight. Will return T piece at 35%. MAXIMUM TEMPERATURE 99.6. 5 bowel movements. Tolerating tube feeds. Neurological examination unchanged. 09/01: Tmax 99.2. Currently afebrile. Currently in TPs at 35%. 7 bowel movement overnight. Tolerating tube feeding. Subjective: 09/19: Ciarra called secondary to aspiration on Gen. medical floor. Transfer to ICU and placed on mechanical ventilation. ABG shows CO2 retention. Etc. revealed no acute cardiac 20 finds however copious message to feed suctioned from trach tube 09/20 No events overnight. Afebrile. On ACV with RR 16, TV 500, PEEP: 5 and FIO2 40%. 09/21 No events overnight. Afebrile. 09/22 No events overnight. Tolerated CPAP all day yesterday with PS 12, PEEP:5 and FIO2 35%. Afebrile. 09/23 No events overnight. On no sedation Tolerated CPAP yesterday. Had T:100.3 last night. 09/24 Patient tolerated TP's x 6 hrs yesterday On CPAP 12/5 with 35% FIO2 overnight. Afebrile. 09/25 No events overnight. On CPAP overnight and TP's during day. Tolerating tube feeds. 10/11 Reconsult: Ciarra was called as patient was found hypotensive with SBP 80' s and tube feeds coming from trach site. Patient is receiving 1L bolus NS and STAT CXR showed mild pulm edema. On arrival to ICU patient was connected to ventilator ( On ACV RR 16, TV 500, PEEP:5 and FIO2 40% with sats 95%. Current BP 125/91 , P:81 10/12 Patient remains on ventilator overnight. Borderline low BP with MAP ranges 67-72. Afebrile. On no sedation. 10/13 Patient is on ventilator via trach, afebrile, WBC trending down. Patient was hypotensive yesterday responded to fluid resuscitation not on any pressors. 10/14: No acute events overnight. WBC count has normalized. Will start SBT as tolerated. CXR in am 10/15 No acute events overnight. Phosphorus low needs replacement. Otherwise neuro exam remains unchanged. remains on CPAP 10/16 Patient remains on ventilator via trach. On no sedation. Afebrile. 10/17 No acute events overnight. On ventilator via trach. Afebrile. 10/18 Tolerates CPAP, but unable to wean further. Otherwise no acute events overnight, remains afebrile 10/19 Patient is on ventilator via trach, UO 175ml in last 7 hrs. Afebrile. Tolerated CPAP x 6 hrs yesterday. 10/20 No acute events overnight. Tolerated CPAP for several hrs yesterday. Afebrile. UO better ( 1275ml in 24hrs). Given 1L NS total yesterday for decrease UO. 10/21 Patient is on ventilator via trach tolerated CPAP for most of day yesterday. Afebrile. Tolerating tube feeds. 10/22 No acute events overnight. Patient was on CPAP all day yesterday. Afebrile. 10/23 Patient tolerated all day yesterday. On ventilator via trach. Afebrile. 10/24 Patient remains on ventilator via trach. Afebrile. 10/25 Remains on vent on PSV 15/5. No acute events overnight. WBC slightly increased 10/26 PSV reduced to 10/5. Required AC/VC support yesterday as patient became tachypneic. No other changes 10/27 no acute changes overnight. Tolerating 10 over 5 PSV. WBC count has normalized, T piece today 10/28: No acute events overnight. Did not tolerate T piece trial yesterday. Tolerated CPAP. No fever Objective - Vital Signs Date Time Temp Pulse Resp B/P Pulse Ox O2 Delivery O2 Flow Rate FiO2 10/29/15 09:02 35 10/29/15 08:10 100 10/29/15 08:00 98.2 83 17 117/82 Intake and Output 10/28/15 10/28/15 10/29/15 08:00 16:00 00:00 Intake Total 294 ml 666 ml 463 ml Output Total 575 ml 525 ml 400.0 ml Balance -281 ml 141 ml 63.0 ml Result Diagram: 10/28/15 0511 10/26/15 0639 Other Results Laboratory Tests Test 10/25/15 06:11 White Blood Count 14.1 TH/MM3 Red Blood Count 4.23 MIL/MM3 Hemoglobin 11.2 GM/DL Hematocrit 34.8 % Mean Corpuscular Volume 82.3 FL Mean Corpuscular Hemoglobin 26.4 PG Mean Corpuscular Hemoglobin 32.1 % Concent Red Cell Distribution Width 18.3 % Platelet Count 205 TH/MM3 Mean Platelet Volume 9.4 FL Neutrophils (%) (Auto) 85.4 % Lymphocytes (%) (Auto) 9.3 % Monocytes (%) (Auto) 5.1 % Eosinophils (%) (Auto) 0.1 % Basophils (%) (Auto) 0.1 % Neutrophils # (Auto) 12.0 TH/MM3 Lymphocytes # (Auto) 1.3 TH/MM3 Monocytes # (Auto) 0.7 TH/MM3 Eosinophils # (Auto) 0.0 TH/MM3 Basophils # (Auto) 0.0 TH/MM3 CBC Comment DIFF FINAL Differential Comment Sodium Level 138 MEQ/L Potassium Level 3.9 MEQ/L Chloride Level 100 MEQ/L Carbon Dioxide Level 30.4 MEQ/L Anion Gap 8 MEQ/L Blood Urea Nitrogen 18 MG/DL Creatinine 0.41 MG/DL Estimat Glomerular Filtration 220 ML/MIN Rate Random Glucose 122 MG/DL Calcium Level 8.8 MG/DL Imaging Last Impressions Chest X-Ray 10/19/15 0000 Signed Impressions: Service Date/Time: Monday, October 19, 2015 12:15 - CONCLUSION: No acute pulmonary infiltrates. Ilir Agosto MD Upper Extremity Ultrasound 10/13/15 0000 Signed Impressions: Service Date/Time: Tuesday, October 13, 2015 09:51 - CONCLUSION: 1. No evidence of deep venous thrombosis. John Anderson MD Abdomen X-Ray 10/12/15 0000 Signed Impressions: Service Date/Time: Monday, October 12, 2015 17:37 - CONCLUSION: 1. Gastrostomy tube in place 2. Unremarkable bowel gas pattern. Salazar Thurman MD Renal Ultrasound 10/07/15 0000 Signed Impressions: Service Date/Time: Wednesday, October 07, 2015 18:29 - CONCLUSION: 1. No acute findings. 3.6 cm left renal cyst. Putnam catheter in bladder. Amaury Ellsworth MD Tunnelled Chest Tube Removal 08/05/15 1100 Signed Impressions: Service Date/Time: Wednesday, August 05, 2015 11:00 - CONCLUSION: Uncomplicated chest tube removal. Blaine Jackson MD Chest Tube Change 07/31/15 0000 Signed Impressions: Service Date/Time: Friday, July 31, 2015 14:34 - CONCLUSION: Uncomplicated reposition of previously placed chest tube as above. Blaine Jackson MD Chest Tube Insertion 07/30/15 0000 Signed Impressions: Service Date/Time: July 14:50 - CONCLUSION: Uncomplicated chest tube placement as above. Blaine Jackson MD Catheter Change 07/27/15 0000 Signed Impressions: Service Date/Time: Monday, July 27, 2015 14:43 - CONCLUSION: Uncomplicated gastrostomy tube exchange as above. Blaine Jackson MD Chest CT 07/11/15 Signed Impressions: Service Date/Time: Saturday, July 11, 2015 09:49 - CONCLUSION: Scattered patchy densities significantly improved from previous study. Tiny anterior right basilar pneumothorax. Right-sided chest tube in good position. Néstor Matamoros MD Head CT 06/18/151902 Signed Impressions: Service Date/Time: June 19:31 - CONCLUSION: Diffuse atrophy unchanged. No acute intracranial findings. Kush Briscoe MD Abdomen/Pelvis CT 06/18/151902 Signed Impressions: Service Date/Time: June 19:36 - CONCLUSION: 1. Chronic nonspecific urinary bladder wall thickening. Bladder collapsed with Putnam catheter in place. 2. Chronic bilateral mid to lower lung zone groundglass opacity. 3. Nonobstructing left renal calculus. 4. Distended rectum. Kush Briscoe MD Objective Remarks GENERAL: 54-year-old male, cachectic, debilitated with contractures on ventilator via trach. On PSV HEENT: NC/AT. PERRL. MMM. OP without erythema or exudates NECK: No JVD. Supple. 8.0 Distal XLT trach in place CARDIAC: RRR. S1/S2. No S4. No murmurs, clicks gallops or rubs. LUNGS: B/L equal air entry PSV 10/5 ABDOMEN: S/NT/ND. Positive BS EXTREMITIES: 1+ dependent pedal edema. Contractures and deformities of fingers. Stage III coccyx/sacral decubitus ulcer NEUROLOGY: Significant contractures of bilateral lower extremity, upper extremities. Eyes open spontaneously. Temporal and facial muscle wasting, muscular atrophy all extremities. Procedures 07/26- PEG replacement 07/29- right pigtail catheter placement for new pneumothorax Date of Insertion: Oct 05, 2015 A/P Assessment and Plan Neuro/Psych: Parkinson's disease Cognitive disorder Chronic encephalopathy Dementia Depression Contractures On no sedation, monitor neuro status. CT head 06/18/15: diffuse atrophy unchanged. No acute intracranial findings Continue Sinemet 25/100 q8 via PEG, Seroquel 50 mg twice a day, olanzapine 5 mg a night, Klonopin 2 mg every 8 hours, Paxil 20 daily Continue Lortab when necessary pain and fentanyl patch 50 g every 3 days for pain management. Fentanyl bolus prn breakthrough pain or if needed for turning/ nursing care/etc. Resp: Acute on chronic respiratory failure Chronic trach #8 Shiley distal XLT Pneumonia, aspiration (ESBL Klebsiella and Pseudomonas pneumonia) Right pneumothorax status post pigtail catheter 2 (resolved) Continue with vent support keep sat >90%. Ventilator bundle, pulm toilet, trach care, daily SBT, TP if tolerated for 2-4 hours (did not tolerate 10/27) Pulmonary Dr. Restrepo following. On Prednisone 60mg daily Exchanged to 8 Distal XLT on 08/15 to facilitate suctioning, trach care. Bronchodilators ( DuoNeb) CXR 10/18, 10/26: No acute pulmonary infiltrates. CXR as needed only Cardiac History of orthostasis History of CAD History dyslipidemia History of hypertension Continue Midodrine 5 mg BID Monitor HR and BP keep MAP>65mmHg. GI: Chronic moderate protein energy malnutrition Dysphagia Status post PEG Internal hemorrhoids Gastroesophageal reflux disease - TF Jevity 1.5 with goal rate 60ml/hr, on Reglan 5mg Q8 PRN for high residuals. - On Prevacid 30 mg per PEG tube daily for GERD - 10/11 KUB abdomen: PEG tube in place. Unremarkable bowel gas pattern. FEN/Renal: Nonobstructing left renal calculus - Monitor renal function, I/O's. electrolytes replacement per protocol. ID: Aspiration pneumonia Cele UTI 10/19 Sputum: Pseudomonas- likely colonized 10/19 urine cx: Yeast species 10/12 BC: NGTD 10/11 BC: NGTD 10/11 Urine cx: C. Tropicalis 10/11 Sputum: ESBL Klebsiella and Pseudomonas pneumonia 10/10 Urine: C. Tropicalis 09/21 Urine cx: Pseudomonas ? colonized 09/19 Sputum cx: Pseudomonas, Kleb pneumonia ESBL pos Candiduria (cele tropicalis urine cx 08/17) ESBL positive Klebsiella/Pseudomonas pneumonia Stenotrophomonas in sputum 08/17 MRSA colonization Sepsis UTI Klebsiella ESBL positive (has been treated) Off abx s/p ( Merrem finished 10 day course 10/23) monitor for signs of infections ( Fever, WBC) ID service is following as needed- Dr. Enoc Moss. Slight increase in WBC. CXR 10/26 no acute changes. Endo: On SSI ( medium) with accuchecks Q6. Heme Normocytic Anemia - Monitor CBC MSK Bilateral lower extremity Contractures Stage III sacral decubitus present on admission - Wound care and PT on case Prophylaxis - GI - Prevacid - DVT - SCDs/ Lovenox. ACCESS: PIVs Level 3 Hilario Kern MD Oct 29, 2015 11:07
--- NOTE | 2015-10-29 19:50 | HHI.PR ---
Subjective Remarks 54 YOWM with ChRF,Trach, multiple uti No fever Gets anxious. Mod amount of trach secretions. tolerating CPAP Tolerates TF Objective Vital Signs Vital Signs Date Time Temp Pulse Resp B/P Pulse Ox O2 Delivery O2 Flow Rate FiO2 10/29/15 18:00 86 10/29/15 17:38 100 35 10/29/15 16:00 97.6 79 21 121/74 100 10/29/15 16:00 35 10/29/15 16:00 79 10/29/15 14:00 82 10/29/15 13:35 100 35 10/29/15 12:00 98.1 82 25 106/72 100 10/29/15 12:00 35 10/29/15 12:00 82 10/29/15 11:01 100 35 10/29/15 10:00 82 10/29/15 09:02 35 10/29/15 08:16 35 10/29/15 08:10 100 35 10/29/15 08:00 98.2 83 17 117/82 100 10/29/15 08:00 35 10/29/15 08:00 83 10/29/15 06:00 89 10/29/15 04:02 100 35 10/29/15 04:00 98.2 87 26 123/83 100 10/29/15 04:00 35 10/29/15 04:00 87 10/29/15 02:00 88 10/29/15 01:07 100 35 10/29/15 00:00 92 10/29/15 00:00 35 10/29/15 00:00 98.2 92 26 157/96 100 10/28/15 22:08 100 35 10/28/15 22:00 85 10/28/15 20:00 98.0 85 26 132/92 100 10/28/15 20:00 85 10/28/15 20:00 35 I/O 10/28/15 10/28/15 10/28/15 10/29/15 10/29/15 10/29/15 07:00 15:00 23:00 07:00 15:00 23:00 Intake Total 294 ml 666 ml 463 ml 476 ml 1284 ml Output Total 575 ml 525 ml 400 ml 800 ml 800 ml 0 ml Balance -281 ml 141 ml 63 ml -324 ml 484 ml 0 ml Intake Oral 0 ml 0 ml 0 ml IV Total 0 ml 0 ml 0 ml Tube Feeding 234 ml 466 ml 343 ml 356 ml 984 ml Tube Irrigant 60 ml 200 ml Other 120 ml 120 ml 300 ml Output Urine Total 575 ml 525 ml 400 ml 800 ml 800 ml Tube Feeding Residual Discard 0 ml 0 ml 0 ml 0 ml # Bowel Movements 1 2 0 2 2 Result Diagram: 10/28/15 0511 10/26/15 0639 Objective Remarks GENERAL: MBMN male on Vent. SKIN: Warm and dry. HEAD: Normocephalic. EYES: No scleral icterus. No injection or drainage. NECK: Supple, trachea midline. No JVD or lymphadenopathy. has trach CARDIOVASCULAR: Regular rate and rhythm without murmurs, gallops, or rubs. RESPIRATORY: Breath sounds equal bilaterally. No accessory muscle use. GASTROINTESTINAL: Abdomen soft, non-tender, nondistended. PEG tube in place MUSCULOSKELETAL: No cyanosis, or edema. BACK: Nontender without obvious deformity. No CVA tenderness. A/P Assessment and Plan VDRF S/P Trach Parkinson's diasease Dementia Aspiration PLAN: TF Cont CPAP ACV prn sob, techypnoea. Trach care Cont Abx Severiano Ag MD Oct 29, 2015 19:50
[2015-10-29] MEDS: ENOXAPARIN SODIUM 40 MG/0.4 ML SYRINGE SQ SCH (20:54)
[2015-10-29] MEDS: OLANZapine 5 MG TAB GT SCH (20:54)
[2015-10-29] MEDS: MORPHINE SULFATE 4 MG/ML INJ IV PUSH PRN (20:55)
[2015-10-30] VITALS (19 sets, daily range): BP systolic 108–143; BP diastolic 72–99; PULSE 77–99; RESP 12–26; TEMP 96.6–99.2; O2SAT 98–100
[2015-10-30] MEDS: INSULIN NovoLIN REGULAR SUPPLEMENTAL SCALE SQ SCH ×5 (00:59→22:51)
[2015-10-30] MEDS: CARBIDOPA/LEVODOPA 25 MG/100 MG TAB GT SCH ×3 (06:38→20:20)
[2015-10-30] MEDS: clonazePAM 1 MG TAB PO SCH ×3 (06:38→20:20)
[2015-10-30] MEDS: REMOVE OLD PATCH TD SCH (08:00)
[2015-10-30] MEDS: CHLORHEXIDINE 0.12% (ORAL KIT) 15 ML CUP MT SCH ×2 (08:00→20:00)
--- NOTE | 2015-10-30 08:25 | HHI.CCPN ---
Subjective Remarks/Hospital Course 06/17: Pt is a 54 yr man with multiple medical problems including Parkinson's disease, advanced dementia, hyponatremia, anxiety, pneumonia, GERD, cognitive disorder, and multidrug resistant UTI- ESBL02/19/15 , who resides in a long-term. Pt by report was found by staff in long-term to be less alert and having respiratory difficultly and fevers. Pt was brought to ED adn placed on ventilator. His workup was inclusive of labs, chest xray and ct head and abd/pelvis. WBC 16.4, +UTI, lactic acid 4, troponin ,0.02, BUN/ cre 18/ 0.76. CT head 06/18/15: diffuse atrophy unchanged. No acute intracranial findings ct abd/ pelvis with IV contrast: 06/18/15 Conclusion: 1. Chronic nonspecific urinary bladder wall thickening. Bladder collapsed with Putnam catheter in place. 2.Chronic bilateral mid to lower zone groundglass opacity. 3. Nonobstructing left renal calculus. 4. Distended rectum Pt admitted and fluid and abx ordered. 06/18: Drowsy, easily arousable. On mechanical ventilation via tracheostomy. Tachypneic. Resting tremor noted. 06/19: Drowsy, arousable. On mechanical ventilation via tracheostomy. 06/20: Drowsy, arousable. Remains on mechanical ventilation via tracheostomy. We'll repeat blood cultures, UA and urine cultures. Fluconazole IV added in view of yeast in urine. 07/06: Reconsulted as patient return to the ventilator on a right ventricular due to tachypnea. Low-grade temperatures. Tolerating tube feeding. Extremity encephalopathic demented patient with difficult neurological examination. 07/07: Status post chest tube placement by IR for right pneumothorax 07/06. Afebrile. Tolerating tube feeds. Positive BM. Currently tachypneic on the ventilator. Does not appear to be any acute distress. 07/08: Afebrile. Tolerating tube feeding. He is comfortable currently on CPAP trials 11/10. Positive BM. 07/09: Afebrile. Tolerating tube feeding. Appears comfortable on T bar. Positive BM. 07/10: Afebrile. Eyes are open. Remained on T piece overnight. Tolerating tube feeding. 07/11: MAXIMUM TEMPERATURE 100. Currently 98.6. Eyes are open. On ACV overnight secondary to "tachypnea and sweating". Switching back to PSV trials today. Goal is T piece during daytime, CPAP at night. 07/12: No acute events overnight. On PSV 15/5 -attempt TP up to 6 hours today. No pneumothorax on chest x-ray 07/13: Placed back on full ventilator support for tachypnea. Otherwise clinically unchanged. No fever today 07/14: Patient was on T piece yesterday evening, placed back on PSV overnight, patient mechanical ventilation this morning. Patient appears to be struggling with mechanical ventilation. Patient placed back on PSV with improvement 07/15: Patient placed back on mechanical ventilation last evening due to respiratory rate. It was indicated patient was tachypnea can the 40s. Patient on mechanical ventilation this time with respiration rate mid 20s. Chest tube still in place without any output, chest x-ray still indicating resolution of pneumothorax. 07/16: Patient seen and examined today. Patient placed back on mechanical ventilation overnight due to respiratory rate. Even on mechanical ventilation patient has respiration rate in the 30s. Patient afebrile, blood pressure stable. Continue vent weaning 07/17: Patient seen and examined. Currently afebrile. Currently on CPAP 15/5 @ 40%. Patient is awake with open mouth resting in bed in no apparent acute distress. Tolerating tube feeding. 2 bowel movements. 07/18: No neurological changes. Afebrile. 2 bowel moments. Tolerating tube feeding. We'll attempt TP trials today. On CPAP since 07/15 07/19 No events overnight. On CPAP with PS: 10, PEEP: 5 and FIO2 35%. Afebrile. On no sedation. 07/20 No events overnight. Tolerating CPAP. Afebrile. 07/21: Remains on CPAP. Attempt T piece trial today. Afebrile. One bowel movement. Tolerating tube feeding. 07/22: Afebrile. Positive BM. Tolerating tube feeding. Noted switched tracheostomy to #6 Shiley cuffed fenestrated. Neurologically unchanged 07/23: Afebrile. Positive BM. Tolerating tube feeding. Questionable leak in exchange trach. Place back on a rate/ACV overnight. Insufflated seems to be doing better at the present time. Will check chest x-ray. Possible he might need #6 XLT versus replacement of chronic #8 Shiley. 07/24: Tolerating TP today, RR in low 30s patient appears comfortable. No acute events overnight 07/25: Remains off the ventilator more than 36 hours now. Intermittently tachypneic probably breathing. Chest x-ray was clear yesterday. No acute events reported overnight. PEG not functioning per RN 08/02: Patient was transferred back to critical care service due to continuing ventilator management, tachypnea. Patient clinical status with no significant change. Patient with low-grade fever 100.2, 08/03: Patient seen and examined today. No significant change in clinical status. Patient still with chronic tachypnea. Patient afebrile now. 08/04: Patient seen and examined today. No change in clinical status. Patient still continues to have chronic tachypnea. Patient afebrile. Continue vent weaning 08/05: Patient seen and examined today. Patient had chest tube removed yesterday , chest x-ray shows redevelopment of pneumothorax. Chest tube replaced. Otherwise, patient still on ventilator with tachypnea. Afebrile 08/06: Patient seen and examined today. Patient went to have chest tube placed, repeat chest x-ray did not indicate any pneumothorax. No overnight events. We' ll need to pursue LTAC placement 08/07 No events overnight. On ventilator via trach. Afebrile. 08/08 Patient tolerated CPAP x4 hrs yesterday. Afebrile. On no sedation. 08/09 No events overnight. Tolerated CPAP x 12 hrs yesterday. Afebrile. 08/10 Patient tolerated TP's x 12 hrs yesterday back on ACV overnight. 08/11 No events overnight, currently on TP's with 40% FIO2. Afebrile. 08/12 On CPAP 10/5. Tolerated Tpiece 3 hours earlier today. Afebrile. 08/13 On CPAP 10/5. Not tolerating CPAP as well over last few days and RT notes challenge with suctioning respiratory secretions adequately. Discussing with healthcare proxy regarding exchange trach to 8.0. 08/14 Nursing and RT staff having continued difficulty suctioning respiratory secretions via 6.0 tracheostomy. KAREN Garcia did not consent to stoma dilation and trach upsize yesterday but said she would call back and let me know but no return call. Contacted again today and left a message. Afebrile. On CPAP 10/5. Brow furrowing on exam, appears to be in pain but pain not localizable. Tolerating tube feeds, had BM yesterday 08/15 Not tolerating CPAP today. Contacted healthcare surrogate again and discussed need for trach change. She consented and trach was dilated and up- sized to 8.0 Distal XLT to facilitate pulmonary toilet and to address volume leak. 08/16 No events overnight. Remains on ventilator via trach. Afebrile. Tolerating TF. 08/17 No events overnight. Afebrile. 08/18 Patient tolerated CPAP x 4 hrs yesterday. Afebrile.On ventilator via trach. 08/19 On CPAP 25/06. Temp max 99.3 08/20 Stenotrophomonas in sputum, started on Levaquin per ID. Temp max 99.8. On CPAP 20/09. Tube feeds were held because PEG was clogged but now PEG is functioning. 08/21 No events overnight. Afebrile. Remains on ventilator via trach. Has been tolerating CPAP trials for last 2 days. 08/22 No events overnight. Afebrile , Has been on CPAP all night with PS: 20, PEEP; 5 and FIO2 35%. 08/23 No events overnight. Remains on CPAP, T:99.9 08/24 No events overnight. On CPAP PS 10, PEEP; 5 and FIO2 35% overnight. Afebrile. 08/25 No events overnight. Afebrile. On CPAP overnight with PS 8, PEEP: 5 and FIO2 35%, afebrile. Tolerating TF. 08/26 Tolerating Tpiece. 08/27 Tolerated Tpiece yesterday and overnight. However this evening desaturated and was placed back on CPAP. Dr. Mistry attempted to update daughter Radha Foreman and discuss his overall poor prognosis for recovery, but call got disconnected midway through call and could not reach her back 08/28 On PSV 10/5 40% today. Afebrile. 08/29 On CPAP overnight. Now on Tpiece 70% per pulmonology. Increased yellow secretions noted. Temp max 99.1 Nursing staff expresses concern that he appears uncomfortable during all nursing care. Called elsa Garcai to update , no answer, left message to call me. 08/30: On CPAP overnight. Currently on T piece at 45%. Currently afebrile. Positive BM. Tolerating tube feeding. 08/31: On CPAP overnight. Will return T piece at 35%. MAXIMUM TEMPERATURE 99.6. 5 bowel movements. Tolerating tube feeds. Neurological examination unchanged. 09/01: Tmax 99.2. Currently afebrile. Currently in TPs at 35%. 7 bowel movement overnight. Tolerating tube feeding. Subjective: 09/19: Ciarra called secondary to aspiration on Gen. medical floor. Transfer to ICU and placed on mechanical ventilation. ABG shows CO2 retention. Etc. revealed no acute cardiac 20 finds however copious message to feed suctioned from trach tube 09/20 No events overnight. Afebrile. On ACV with RR 16, TV 500, PEEP: 5 and FIO2 40%. 09/21 No events overnight. Afebrile. 09/22 No events overnight. Tolerated CPAP all day yesterday with PS 12, PEEP:5 and FIO2 35%. Afebrile. 09/23 No events overnight. On no sedation Tolerated CPAP yesterday. Had T:100.3 last night. 09/24 Patient tolerated TP's x 6 hrs yesterday On CPAP 12/5 with 35% FIO2 overnight. Afebrile. 09/25 No events overnight. On CPAP overnight and TP's during day. Tolerating tube feeds. 10/11 Reconsult: Ciarra was called as patient was found hypotensive with SBP 80' s and tube feeds coming from trach site. Patient is receiving 1L bolus NS and STAT CXR showed mild pulm edema. On arrival to ICU patient was connected to ventilator ( On ACV RR 16, TV 500, PEEP:5 and FIO2 40% with sats 95%. Current BP 125/91 , P:81 10/12 Patient remains on ventilator overnight. Borderline low BP with MAP ranges 67-72. Afebrile. On no sedation. 10/13 Patient is on ventilator via trach, afebrile, WBC trending down. Patient was hypotensive yesterday responded to fluid resuscitation not on any pressors. 10/14: No acute events overnight. WBC count has normalized. Will start SBT as tolerated. CXR in am 10/15 No acute events overnight. Phosphorus low needs replacement. Otherwise neuro exam remains unchanged. remains on CPAP 10/16 Patient remains on ventilator via trach. On no sedation. Afebrile. 10/17 No acute events overnight. On ventilator via trach. Afebrile. 10/18 Tolerates CPAP, but unable to wean further. Otherwise no acute events overnight, remains afebrile 10/19 Patient is on ventilator via trach, UO 175ml in last 7 hrs. Afebrile. Tolerated CPAP x 6 hrs yesterday. 10/20 No acute events overnight. Tolerated CPAP for several hrs yesterday. Afebrile. UO better ( 1275ml in 24hrs). Given 1L NS total yesterday for decrease UO. 10/21 Patient is on ventilator via trach tolerated CPAP for most of day yesterday. Afebrile. Tolerating tube feeds. 10/22 No acute events overnight. Patient was on CPAP all day yesterday. Afebrile. 10/23 Patient tolerated all day yesterday. On ventilator via trach. Afebrile. 10/24 Patient remains on ventilator via trach. Afebrile. 10/25 Remains on vent on PSV 15/5. No acute events overnight. WBC slightly increased 10/26 PSV reduced to 10/5. Required AC/VC support yesterday as patient became tachypneic. No other changes 10/27 no acute changes overnight. Tolerating 10 over 5 PSV. WBC count has normalized, T piece today 10/28: No acute events overnight. Did not tolerate T piece trial yesterday. Tolerated CPAP. No fever 10/29: No acute events reported. Currently on 12 over 5 pressure support, reduced to 8/5. No fever Objective - Vital Signs Date Time Temp Pulse Resp B/P Pulse Ox O2 Delivery O2 Flow Rate FiO2 10/30/15 07:51 100 35 10/30/15 06:00 77 10/30/15 04:00 98.4 22 115/79 Intake and Output 10/29/15 10/29/15 10/30/15 08:00 16:00 00:00 Intake Total 476 ml 1284 ml 592 ml Output Total 800.0 ml 800.0 ml 375 ml Balance -324.0 ml 484.0 ml 217 ml Result Diagram: 10/28/15 0511 10/26/15 0639 Other Results Laboratory Tests Test 10/25/15 06:11 White Blood Count 14.1 TH/MM3 Red Blood Count 4.23 MIL/MM3 Hemoglobin 11.2 GM/DL Hematocrit 34.8 % Mean Corpuscular Volume 82.3 FL Mean Corpuscular Hemoglobin 26.4 PG Mean Corpuscular Hemoglobin 32.1 % Concent Red Cell Distribution Width 18.3 % Platelet Count 205 TH/MM3 Mean Platelet Volume 9.4 FL Neutrophils (%) (Auto) 85.4 % Lymphocytes (%) (Auto) 9.3 % Monocytes (%) (Auto) 5.1 % Eosinophils (%) (Auto) 0.1 % Basophils (%) (Auto) 0.1 % Neutrophils # (Auto) 12.0 TH/MM3 Lymphocytes # (Auto) 1.3 TH/MM3 Monocytes # (Auto) 0.7 TH/MM3 Eosinophils # (Auto) 0.0 TH/MM3 Basophils # (Auto) 0.0 TH/MM3 CBC Comment DIFF FINAL Differential Comment Sodium Level 138 MEQ/L Potassium Level 3.9 MEQ/L Chloride Level 100 MEQ/L Carbon Dioxide Level 30.4 MEQ/L Anion Gap 8 MEQ/L Blood Urea Nitrogen 18 MG/DL Creatinine 0.41 MG/DL Estimat Glomerular Filtration 220 ML/MIN Rate Random Glucose 122 MG/DL Calcium Level 8.8 MG/DL Imaging Last Impressions Chest X-Ray 10/19/15 0000 Signed Impressions: Service Date/Time: Monday, October 19, 2015 12:15 - CONCLUSION: No acute pulmonary infiltrates. Ilir Agosto MD Upper Extremity Ultrasound 10/13/15 0000 Signed Impressions: Service Date/Time: Tuesday, October 13, 2015 09:51 - CONCLUSION: 1. No evidence of deep venous thrombosis. John Anderson MD Abdomen X-Ray 10/12/15 0000 Signed Impressions: Service Date/Time: Monday, October 12, 2015 17:37 - CONCLUSION: 1. Gastrostomy tube in place 2. Unremarkable bowel gas pattern. Salazar Thurman MD Renal Ultrasound 10/07/15 0000 Signed Impressions: Service Date/Time: Wednesday, October 07, 2015 18:29 - CONCLUSION: 1. No acute findings. 3.6 cm left renal cyst. Putnam catheter in bladder. Amaury Ellsworth MD Tunnelled Chest Tube Removal 08/05/15 1100 Signed Impressions: Service Date/Time: Wednesday, August 05, 2015 11:00 - CONCLUSION: Uncomplicated chest tube removal. Blaine Jackson MD Chest Tube Change 07/31/15 Signed Impressions: Service Date/Time: Friday, July 31, 2015 14:34 - CONCLUSION: Uncomplicated reposition of previously placed chest tube as above. Blaine Jacskon MD Chest Tube Insertion 07/30/15 Signed Impressions: Service Date/Time: July 14:50 - CONCLUSION: Uncomplicated chest tube placement as above. Blaine Jackson MD Catheter Change 07/27/15 Signed Impressions: Service Date/Time: Monday, July 27, 2015 14:43 - CONCLUSION: Uncomplicated gastrostomy tube exchange as above. Blaine Jackson MD Chest CT 07/11/15 Signed Impressions: Service Date/Time: Saturday, July 11, 2015 09:49 - CONCLUSION: Scattered patchy densities significantly improved from previous study. Tiny anterior right basilar pneumothorax. Right-sided chest tube in good position. Néstor Matamoros MD Head CT 06/18/151902 Signed Impressions: Service Date/Time: June 19:31 - CONCLUSION: Diffuse atrophy unchanged. No acute intracranial findings. Kush Brisoce MD Abdomen/Pelvis CT 06/18/151902 Signed Impressions: Service Date/Time: June 19:36 - CONCLUSION: 1. Chronic nonspecific urinary bladder wall thickening. Bladder collapsed with Putnam catheter in place. 2. Chronic bilateral mid to lower lung zone groundglass opacity. 3. Nonobstructing left renal calculus. 4. Distended rectum. Kush Briscoe MD Objective Remarks GENERAL: 54-year-old male, cachectic, debilitated with contractures on PSV via trach. HEENT: NC/AT. PERRL. OP without erythema or exudates NECK: No JVD. Supple. 8.0 Distal XLT trach in place CARDIAC: RRR. S1/S2. No S4. No murmurs, clicks gallops or rubs. LUNGS: B/L equal air entry PSV 12/5 reduced to 8/5 ABDOMEN: S/NT/ND. Positive BS EXTREMITIES: 1+ dependent pedal edema. Contractures and deformities of fingers. Stage III coccyx/sacral decubitus ulcer NEUROLOGY: Significant contractures of bilateral lower extremity, upper extremities. Eyes open spontaneously. Temporal and facial muscle wasting, muscular atrophy all extremities. Procedures 07/26- PEG replacement 07/29- right pigtail catheter placement for new pneumothorax Urinary Catheter: Yes Assessment to: Continue Date of Insertion: Oct 05, 2015 A/P Assessment and Plan Neuro/Psych: Parkinson's disease Cognitive disorder Chronic encephalopathy Dementia Depression Contractures On no sedation. CT head 06/18/15: diffuse atrophy unchanged. No acute intracranial findings Continue Sinemet 25/100 q8 via PEG, Seroquel 50 mg twice a day, olanzapine 5 mg a night, Klonopin 2 mg every 8 hours, Paxil 20 daily Continue Lortab when necessary pain and fentanyl patch 50 g every 3 days for pain management. Fentanyl bolus prn breakthrough pain or if needed for turning/ nursing care/etc. Resp: Acute on chronic respiratory failure Chronic trach #8 Shiley distal XLT Pneumonia, aspiration (ESBL Klebsiella and Pseudomonas pneumonia) Right pneumothorax status post pigtail catheter 2 (resolved) Continue with vent support keep sat >90%. Ventilator bundle, pulm toilet, trach care, daily SBT, TP if tolerated for 2-4 hours (did not tolerate 10/27) Pulmonary Dr. Restrepo following. On Prednisone 60mg daily Exchanged to 8 Distal XLT on 08/15 to facilitate suctioning, trach care. Bronchodilators ( DuoNeb) CXR 10/18, 10/26: No acute pulmonary infiltrates. CXR as needed only Cardiac History of orthostasis History of CAD History dyslipidemia History of hypertension Continue Midodrine 5 mg BID. Monitor HR and BP keep MAP>65mmHg. GI: Chronic moderate protein energy malnutrition Dysphagia Status post PEG Internal hemorrhoids Gastroesophageal reflux disease - TF Jevity 1.5 with goal rate 60ml/hr, on Reglan 5mg Q8 PRN for high residuals. - On Prevacid 30 mg per PEG tube daily for GERD - 10/11 KUB abdomen: PEG tube in place. Unremarkable bowel gas pattern. FEN/Renal: Nonobstructing left renal calculus - Monitor renal function, I/O's. electrolytes replacement per protocol. ID: Aspiration pneumonia Cele UTI 10/19 Sputum: Pseudomonas- likely colonized 10/19 urine cx: Yeast species 10/12 BC: NGTD 10/11 BC: NGTD 10/11 Urine cx: C. Tropicalis 10/11 Sputum: ESBL Klebsiella and Pseudomonas pneumonia 10/10 Urine: C. Tropicalis 09/21 Urine cx: Pseudomonas ? colonized 09/19 Sputum cx: Pseudomonas, Kleb pneumonia ESBL pos Candiduria (cele tropicalis urine cx 08/17) ESBL positive Klebsiella/Pseudomonas pneumonia Stenotrophomonas in sputum 08/17 MRSA colonization Sepsis UTI Klebsiella ESBL positive (has been treated) Off abx s/p ( Merrem finished 10 day course 10/23) monitor for signs of infections ( Fever, WBC) ID service is following as needed- Dr. Enoc Moss. Slight increase in WBC, now normalized. CXR 10/26 no acute changes. Endo: On SSI ( medium) with accuchecks Q6. Heme Normocytic Anemia - Monitor CBC MSK Bilateral lower extremity Contractures Stage III sacral decubitus present on admission - Wound care and PT on case Prophylaxis - GI - Prevacid - DVT - SCDs/ Lovenox. ACCESS: PIVs Level 2 Hilario Kern MD Oct 30, 2015 08:25
[2015-10-30] MEDS: predniSONE 20 MG TAB PO SCH (08:48)
[2015-10-30] MEDS: QUEtiapine FUMARATE 25 MG TAB G-TUBE SCH ×2 (08:48→20:19)
[2015-10-30] MEDS: LANSOPRAZOLE SOLUTAB 30 MG TAB NG SCH (08:48)
[2015-10-30] MEDS: COLLAGENASE OINT 30 GM TUBE TOP SCH (08:48)
[2015-10-30] MEDS: ARTIFICIAL TEARS OPTH SOLN 15 ML BTL EACH EYE SCH ×3 (08:48→18:08)
[2015-10-30] MEDS: PARoxetine HCL 20 MG TAB G-TUBE SCH (08:48)
[2015-10-30] MEDS: LACTOBACILLUS ACIDOPHILUS TAB PO SCH ×3 (08:48→18:08)
[2015-10-30] MEDS: GABAPENTIN 300 MG CAP G-TUBE SCH ×2 (08:48→20:19)
[2015-10-30] MEDS: MIDODRINE 5 MG TAB G-TUBE SCH ×2 (08:50→20:19)
[2015-10-30] MEDS: SODIUM CHLORIDE 0.9% FLUSH 5 ML FLUSH IVF SCH ×2 (08:52→20:20)
--- NOTE | 2015-10-30 16:54 | HHI.PR ---
Subjective Remarks 54 YOWM with ChRF,Trach, multiple uti No fever Gets anxious. Mod amount of trach secretions. tolerated T -bar few hrs Now , on CPAP 8/5, Fi02 35% Tolerates TF Objective Vital Signs Vital Signs Date Time Temp Pulse Resp B/P Pulse Ox O2 Delivery O2 Flow Rate FiO2 10/30/15 16:32 100 35 10/30/15 16:00 83 10/30/15 16:00 100 Mechanical Ventilator 10.00 35 10/30/15 16:00 35 10/30/15 14:00 83 10/30/15 12:00 82 10/30/15 12:00 98 T-Piece 35 10/30/15 12:00 96.6 82 22 143/99 98 10/30/15 10:23 99 T-piece 5.00 35 10/30/15 10:00 79 10/30/15 08:00 35 10/30/15 08:00 97.7 83 23 111/77 100 10/30/15 08:00 83 10/30/15 07:51 100 35 10/30/15 06:00 77 10/30/15 04:00 98.4 83 22 115/79 100 10/30/15 04:00 83 10/30/15 04:00 35 10/30/15 03:56 100 35 10/30/15 02:00 85 10/30/15 01:04 100 35 10/30/15 00:00 35 10/30/15 00:00 85 10/30/15 00:00 98.1 85 12 108/72 100 10/29/15 22:10 100 35 10/29/15 22:00 86 10/29/15 20:00 35 10/29/15 20:00 98.0 94 34 134/96 100 10/29/15 20:00 88 10/29/15 19:25 100 35 10/29/15 18:00 86 10/29/15 17:38 100 35 I/O 10/29/15 10/29/15 10/29/15 10/30/15 10/30/15 10/30/15 07:00 15:00 23:00 07:00 15:00 23:00 Intake Total 476 ml 1284 ml 592 ml 293 ml 787 ml Output Total 800 ml 800 ml 375 ml 150 ml 600 ml Balance -324 ml 484 ml 217 ml 143 ml 187 ml Intake Oral 0 ml 0 ml 0 ml 0 ml IV Total 0 ml 0 ml 0 ml 0 ml Tube Feeding 356 ml 984 ml 532 ml 233 ml 527 ml Tube Irrigant 60 ml 60 ml 60 ml Other 120 ml 300 ml 200 ml Output Urine Total 800 ml 800 ml 375 ml 150 ml 600 ml Tube Feeding Residual Discard 0 ml 0 ml 0 ml 0 ml # Bowel Movements 2 2 1 2 2 Result Diagram: 10/28/15 0511 10/26/15 0639 Objective Remarks GENERAL: MBMN male on Vent. SKIN: Warm and dry. HEAD: Normocephalic. EYES: No scleral icterus. No injection or drainage. NECK: Supple, trachea midline. No JVD or lymphadenopathy. has trach CARDIOVASCULAR: Regular rate and rhythm without murmurs, gallops, or rubs. RESPIRATORY: Breath sounds equal bilaterally. No accessory muscle use. GASTROINTESTINAL: Abdomen soft, non-tender, nondistended. PEG tube in place MUSCULOSKELETAL: No cyanosis, or edema. BACK: Nontender without obvious deformity. No CVA tenderness. A/P Assessment and Plan VDRF S/P Trach Parkinson's diasease Dementia Aspiration PLAN: TF Cont CPAP ACV prn sob, techypnoea. Trach care Cont Abx Daily T-Tube trial. Severiano Ag MD Oct 30, 2015 16:54
[2015-10-30] MEDS: ENOXAPARIN SODIUM 40 MG/0.4 ML SYRINGE SQ SCH (20:20)
[2015-10-30] MEDS: OLANZapine 5 MG TAB GT SCH (20:20)
[2015-10-30] MEDS: MORPHINE SULFATE 4 MG/ML INJ IV PUSH PRN (22:51)
[2015-10-31] VITALS (18 sets, daily range): BP systolic 105–135; BP diastolic 72–88; PULSE 70–88; RESP 20–28; TEMP 97.4–98.9; O2SAT 100
[2015-10-31 05:28] LABS: AUTOMATED NEUTROPHIL # 8.8 TH/MM3 (1.8-7.7); BASOPHIL % 0.3 % (0.0-2.0); EOSINOPHIL # 0.1 TH/MM3 (0-0.4); EOSINOPHIL % 0.8 % (0.0-4.0); HEMATOCRIT 35.9 % (39.0-51.0); HEMO FLAGS DIFF FINAL; LYMPH % 15.7 % (9.0-44.0); LYMPHOCYTE # 1.8 TH/MM3 (1.0-4.8); MEAN CELL VOLUME 82.7 FL (80.0-100.0); MEAN CORPUSCULAR HEMOGLOBIN 26.6 PG (27.0-34.0); MEAN CORPUSCULAR HGB CONC 32.2 % (32.0-36.0); MONO % 5.8 % (0.0-8.0); NEUT % 77.4 % (16.0-70.0); PLATELET COUNT 212 TH/MM3 (150-450); RED BLOOD COUNT 4.34 MIL/MM3 (4.50-5.90); RED CELL DISTRIBUTION WIDTH 18.4 % (11.6-17.2); WHITE BLOOD COUNT 11.4 TH/MM3 (4.0-11.0)
[2015-10-31 05:43] LABS: ALT (GPT) 40 U/L (12-78); ANION GAP 7 MEQ/L (5-15); AST (GOT) 17 U/L (15-37); BICARBONATE 27.8 MEQ/L (21.0-32.0); BLOOD UREA NITROGEN 20 MG/DL (7-18); CHLORIDE 101 MEQ/L (98-107); GLOMERULAR FILTRATION RATE 207 ML/MIN (>89); POTASSIUM 3.8 MEQ/L (3.5-5.1); SODIUM (NA) 136 MEQ/L (136-145)
[2015-10-31 05:45] LABS: ALKALINE PHOSPHATASE 75 U/L (45-117); TOTAL BILIRUBIN ADULT 0.3 MG/DL (0.2-1.0)
[2015-10-31] MEDS: INSULIN NovoLIN REGULAR SUPPLEMENTAL SCALE SQ SCH ×3 (06:17→17:14)
[2015-10-31] MEDS: clonazePAM 1 MG TAB PO SCH ×3 (06:17→21:40)
[2015-10-31] MEDS: CARBIDOPA/LEVODOPA 25 MG/100 MG TAB GT SCH ×3 (06:17→21:40)
--- NOTE | 2015-10-31 07:59 | HHI.CCPN ---
Subjective Remarks/Hospital Course 06/17: Pt is a 54 yr man with multiple medical problems including Parkinson's disease, advanced dementia, hyponatremia, anxiety, pneumonia, GERD, cognitive disorder, and multidrug resistant UTI- ESBL02/19/15 , who resides in a snf. Pt by report was found by staff in snf to be less alert and having respiratory difficultly and fevers. Pt was brought to ED adn placed on ventilator. His workup was inclusive of labs, chest xray and ct head and abd/pelvis. WBC 16.4, +UTI, lactic acid 4, troponin ,0.02, BUN/ cre 18/ 0.76. CT head 06/18/15: diffuse atrophy unchanged. No acute intracranial findings ct abd/ pelvis with IV contrast: 06/18/15 Conclusion: 1. Chronic nonspecific urinary bladder wall thickening. Bladder collapsed with Putnam catheter in place. 2.Chronic bilateral mid to lower zone groundglass opacity. 3. Nonobstructing left renal calculus. 4. Distended rectum Pt admitted and fluid and abx ordered. 06/18: Drowsy, easily arousable. On mechanical ventilation via tracheostomy. Tachypneic. Resting tremor noted. 06/19: Drowsy, arousable. On mechanical ventilation via tracheostomy. 06/20: Drowsy, arousable. Remains on mechanical ventilation via tracheostomy. We'll repeat blood cultures, UA and urine cultures. Fluconazole IV added in view of yeast in urine. 07/06: Reconsulted as patient return to the ventilator on a right ventricular due to tachypnea. Low-grade temperatures. Tolerating tube feeding. Extremity encephalopathic demented patient with difficult neurological examination. 07/07: Status post chest tube placement by IR for right pneumothorax 07/06. Afebrile. Tolerating tube feeds. Positive BM. Currently tachypneic on the ventilator. Does not appear to be any acute distress. 07/08: Afebrile. Tolerating tube feeding. He is comfortable currently on CPAP trials 11/10. Positive BM. 07/09: Afebrile. Tolerating tube feeding. Appears comfortable on T bar. Positive BM. 07/10: Afebrile. Eyes are open. Remained on T piece overnight. Tolerating tube feeding. 07/11: MAXIMUM TEMPERATURE 100. Currently 98.6. Eyes are open. On ACV overnight secondary to "tachypnea and sweating". Switching back to PSV trials today. Goal is T piece during daytime, CPAP at night. 07/12: No acute events overnight. On PSV 15/5 -attempt TP up to 6 hours today. No pneumothorax on chest x-ray 07/13: Placed back on full ventilator support for tachypnea. Otherwise clinically unchanged. No fever today 07/14: Patient was on T piece yesterday evening, placed back on PSV overnight, patient mechanical ventilation this morning. Patient appears to be struggling with mechanical ventilation. Patient placed back on PSV with improvement 07/15: Patient placed back on mechanical ventilation last evening due to respiratory rate. It was indicated patient was tachypnea can the 40s. Patient on mechanical ventilation this time with respiration rate mid 20s. Chest tube still in place without any output, chest x-ray still indicating resolution of pneumothorax. 07/16: Patient seen and examined today. Patient placed back on mechanical ventilation overnight due to respiratory rate. Even on mechanical ventilation patient has respiration rate in the 30s. Patient afebrile, blood pressure stable. Continue vent weaning 07/17: Patient seen and examined. Currently afebrile. Currently on CPAP 15/5 @ 40%. Patient is awake with open mouth resting in bed in no apparent acute distress. Tolerating tube feeding. 2 bowel movements. 07/18: No neurological changes. Afebrile. 2 bowel moments. Tolerating tube feeding. We'll attempt TP trials today. On CPAP since 07/15 07/19 No events overnight. On CPAP with PS: 10, PEEP: 5 and FIO2 35%. Afebrile. On no sedation. 07/20 No events overnight. Tolerating CPAP. Afebrile. 07/21: Remains on CPAP. Attempt T piece trial today. Afebrile. One bowel movement. Tolerating tube feeding. 07/22: Afebrile. Positive BM. Tolerating tube feeding. Noted switched tracheostomy to #6 Shiley cuffed fenestrated. Neurologically unchanged 07/23: Afebrile. Positive BM. Tolerating tube feeding. Questionable leak in exchange trach. Place back on a rate/ACV overnight. Insufflated seems to be doing better at the present time. Will check chest x-ray. Possible he might need #6 XLT versus replacement of chronic #8 Shiley. 07/24: Tolerating TP today, RR in low 30s patient appears comfortable. No acute events overnight 07/25: Remains off the ventilator more than 36 hours now. Intermittently tachypneic probably breathing. Chest x-ray was clear yesterday. No acute events reported overnight. PEG not functioning per RN 08/02: Patient was transferred back to critical care service due to continuing ventilator management, tachypnea. Patient clinical status with no significant change. Patient with low-grade fever 100.2, 08/03: Patient seen and examined today. No significant change in clinical status. Patient still with chronic tachypnea. Patient afebrile now. 08/04: Patient seen and examined today. No change in clinical status. Patient still continues to have chronic tachypnea. Patient afebrile. Continue vent weaning 08/05: Patient seen and examined today. Patient had chest tube removed yesterday , chest x-ray shows redevelopment of pneumothorax. Chest tube replaced. Otherwise, patient still on ventilator with tachypnea. Afebrile 08/06: Patient seen and examined today. Patient went to have chest tube placed, repeat chest x-ray did not indicate any pneumothorax. No overnight events. We' ll need to pursue LTAC placement 08/07 No events overnight. On ventilator via trach. Afebrile. 08/08 Patient tolerated CPAP x4 hrs yesterday. Afebrile. On no sedation. 08/09 No events overnight. Tolerated CPAP x 12 hrs yesterday. Afebrile. 08/10 Patient tolerated TP's x 12 hrs yesterday back on ACV overnight. 08/11 No events overnight, currently on TP's with 40% FIO2. Afebrile. 08/12 On CPAP 10/5. Tolerated Tpiece 3 hours earlier today. Afebrile. 08/13 On CPAP 10/5. Not tolerating CPAP as well over last few days and RT notes challenge with suctioning respiratory secretions adequately. Discussing with healthcare proxy regarding exchange trach to 8.0. 08/14 Nursing and RT staff having continued difficulty suctioning respiratory secretions via 6.0 tracheostomy. KAREN Garcia did not consent to stoma dilation and trach upsize yesterday but said she would call back and let me know but no return call. Contacted again today and left a message. Afebrile. On CPAP 10/5. Brow furrowing on exam, appears to be in pain but pain not localizable. Tolerating tube feeds, had BM yesterday 08/15 Not tolerating CPAP today. Contacted healthcare surrogate again and discussed need for trach change. She consented and trach was dilated and up- sized to 8.0 Distal XLT to facilitate pulmonary toilet and to address volume leak. 08/16 No events overnight. Remains on ventilator via trach. Afebrile. Tolerating TF. 08/17 No events overnight. Afebrile. 08/18 Patient tolerated CPAP x 4 hrs yesterday. Afebrile.On ventilator via trach. 08/19 On CPAP 25/06. Temp max 99.3 08/20 Stenotrophomonas in sputum, started on Levaquin per ID. Temp max 99.8. On CPAP 20/09. Tube feeds were held because PEG was clogged but now PEG is functioning. 08/21 No events overnight. Afebrile. Remains on ventilator via trach. Has been tolerating CPAP trials for last 2 days. 08/22 No events overnight. Afebrile , Has been on CPAP all night with PS: 20, PEEP; 5 and FIO2 35%. 08/23 No events overnight. Remains on CPAP, T:99.9 08/24 No events overnight. On CPAP PS 10, PEEP; 5 and FIO2 35% overnight. Afebrile. 08/25 No events overnight. Afebrile. On CPAP overnight with PS 8, PEEP: 5 and FIO2 35%, afebrile. Tolerating TF. 08/26 Tolerating Tpiece. 08/27 Tolerated Tpiece yesterday and overnight. However this evening desaturated and was placed back on CPAP. Dr. Mistry attempted to update daughter Radha Foreman and discuss his overall poor prognosis for recovery, but call got disconnected midway through call and could not reach her back 08/28 On PSV 10/5 40% today. Afebrile. 08/29 On CPAP overnight. Now on Tpiece 70% per pulmonology. Increased yellow secretions noted. Temp max 99.1 Nursing staff expresses concern that he appears uncomfortable during all nursing care. Called elsa Garcia to update , no answer, left message to call me. 08/30: On CPAP overnight. Currently on T piece at 45%. Currently afebrile. Positive BM. Tolerating tube feeding. 08/31: On CPAP overnight. Will return T piece at 35%. MAXIMUM TEMPERATURE 99.6. 5 bowel movements. Tolerating tube feeds. Neurological examination unchanged. 09/01: Tmax 99.2. Currently afebrile. Currently in TPs at 35%. 7 bowel movement overnight. Tolerating tube feeding. Subjective: 09/19: Ciarra called secondary to aspiration on Gen. medical floor. Transfer to ICU and placed on mechanical ventilation. ABG shows CO2 retention. Etc. revealed no acute cardiac 20 finds however copious message to feed suctioned from trach tube 09/20 No events overnight. Afebrile. On ACV with RR 16, TV 500, PEEP: 5 and FIO2 40%. 09/21 No events overnight. Afebrile. 09/22 No events overnight. Tolerated CPAP all day yesterday with PS 12, PEEP:5 and FIO2 35%. Afebrile. 09/23 No events overnight. On no sedation Tolerated CPAP yesterday. Had T:100.3 last night. 09/24 Patient tolerated TP's x 6 hrs yesterday On CPAP 12/5 with 35% FIO2 overnight. Afebrile. 09/25 No events overnight. On CPAP overnight and TP's during day. Tolerating tube feeds. 10/11 Reconsult: Ciarra was called as patient was found hypotensive with SBP 80' s and tube feeds coming from trach site. Patient is receiving 1L bolus NS and STAT CXR showed mild pulm edema. On arrival to ICU patient was connected to ventilator ( On ACV RR 16, TV 500, PEEP:5 and FIO2 40% with sats 95%. Current BP 125/91 , P:81 10/12 Patient remains on ventilator overnight. Borderline low BP with MAP ranges 67-72. Afebrile. On no sedation. 10/13 Patient is on ventilator via trach, afebrile, WBC trending down. Patient was hypotensive yesterday responded to fluid resuscitation not on any pressors. 10/14: No acute events overnight. WBC count has normalized. Will start SBT as tolerated. CXR in am 10/15 No acute events overnight. Phosphorus low needs replacement. Otherwise neuro exam remains unchanged. remains on CPAP 10/16 Patient remains on ventilator via trach. On no sedation. Afebrile. 10/17 No acute events overnight. On ventilator via trach. Afebrile. 10/18 Tolerates CPAP, but unable to wean further. Otherwise no acute events overnight, remains afebrile 10/19 Patient is on ventilator via trach, UO 175ml in last 7 hrs. Afebrile. Tolerated CPAP x 6 hrs yesterday. 10/20 No acute events overnight. Tolerated CPAP for several hrs yesterday. Afebrile. UO better ( 1275ml in 24hrs). Given 1L NS total yesterday for decrease UO. 10/21 Patient is on ventilator via trach tolerated CPAP for most of day yesterday. Afebrile. Tolerating tube feeds. 10/22 No acute events overnight. Patient was on CPAP all day yesterday. Afebrile. 10/23 Patient tolerated all day yesterday. On ventilator via trach. Afebrile. 10/24 Patient remains on ventilator via trach. Afebrile. 10/25 Remains on vent on PSV 15/5. No acute events overnight. WBC slightly increased 10/26 PSV reduced to 10/5. Required AC/VC support yesterday as patient became tachypneic. No other changes 10/27 no acute changes overnight. Tolerating 10 over 5 PSV. WBC count has normalized, T piece today 10/28: No acute events overnight. Did not tolerate T piece trial yesterday. Tolerated CPAP. No fever 10/29: No acute events reported. Currently on 12 over 5 pressure support, reduced to 8/5. No fever 10/30 No acute events overnight. On CPAP with PS 10, PEEP: 5 and FIO2 35% overnight. Afebrile. Objective - Vital Signs Date Time Temp Pulse Resp B/P Pulse Ox O2 Delivery O2 Flow Rate FiO2 10/31/15 07:44 100 35 10/31/15 06:00 72 10/31/15 04:00 97.4 23 112/80 10/30/15 20:00 Mechanical Ventilator 10/30/15 16:00 10.00 Intake and Output 10/30/15 10/30/15 10/31/15 08:00 16:00 00:00 Intake Total 293 ml 787 ml 404 ml Output Total 150.0 ml 600 ml 375 ml Balance 143.0 ml 187 ml 29 ml Result Diagram: 10/31/15 0503 10/31/15 0503 Other Results Laboratory Tests Test 10/31/15 05:03 White Blood Count 11.4 TH/MM3 Red Blood Count 4.34 MIL/MM3 Hemoglobin 11.6 GM/DL Hematocrit 35.9 % Mean Corpuscular Volume 82.7 FL Mean Corpuscular Hemoglobin 26.6 PG Mean Corpuscular Hemoglobin 32.2 % Concent Red Cell Distribution Width 18.4 % Platelet Count 212 TH/MM3 Mean Platelet Volume 10.2 FL Neutrophils (%) (Auto) 77.4 % Lymphocytes (%) (Auto) 15.7 % Monocytes (%) (Auto) 5.8 % Eosinophils (%) (Auto) 0.8 % Basophils (%) (Auto) 0.3 % Neutrophils # (Auto) 8.8 TH/MM3 Lymphocytes # (Auto) 1.8 TH/MM3 Monocytes # (Auto) 0.7 TH/MM3 Eosinophils # (Auto) 0.1 TH/MM3 Basophils # (Auto) 0.0 TH/MM3 CBC Comment DIFF FINAL Differential Comment Sodium Level 136 MEQ/L Potassium Level 3.8 MEQ/L Chloride Level 101 MEQ/L Carbon Dioxide Level 27.8 MEQ/L Anion Gap 7 MEQ/L Blood Urea Nitrogen 20 MG/DL Creatinine 0.43 MG/DL Estimat Glomerular Filtration 207 ML/MIN Rate Random Glucose 168 MG/DL Calcium Level 8.8 MG/DL Total Bilirubin 0.3 MG/DL Aspartate Amino Transf 17 U/L (AST/SGOT) Alanine Aminotransferase 40 U/L (ALT/SGPT) Alkaline Phosphatase 75 U/L Total Protein 6.6 GM/DL Albumin 2.9 GM/DL Imaging Last Impressions Chest X-Ray 10/27/15 0600 Signed Impressions: Service Date/Time: Tuesday, October 27, 2015 04:06 - CONCLUSION: Stable chest x-ray without an acute finding identified. Erlin Barajas MD Upper Extremity Ultrasound 10/13/15 0000 Signed Impressions: Service Date/Time: Tuesday, October 13, 2015 09:51 - CONCLUSION: 1. No evidence of deep venous thrombosis. John Anderson MD Abdomen X-Ray 10/12/15 0000 Signed Impressions: Service Date/Time: Monday, October 12, 2015 17:37 - CONCLUSION: 1. Gastrostomy tube in place 2. Unremarkable bowel gas pattern. Salazar Thurman MD Renal Ultrasound 10/07/15 0000 Signed Impressions: Service Date/Time: Wednesday, October 07, 2015 18:29 - CONCLUSION: 1. No acute findings. 3.6 cm left renal cyst. Putnam catheter in bladder. Amaury Ellsworth MD Tunnelled Chest Tube Removal 08/05/15 1100 Signed Impressions: Service Date/Time: Wednesday, August 05, 2015 11:00 - CONCLUSION: Uncomplicated chest tube removal. Blaine Jackson MD Chest Tube Change 07/31/15 0000 Signed Impressions: Service Date/Time: Friday, July 31, 2015 14:34 - CONCLUSION: Uncomplicated reposition of previously placed chest tube as above. Blaine Jackson MD Chest Tube Insertion 07/30/15 0000 Signed Impressions: Service Date/Time: July 14:50 - CONCLUSION: Uncomplicated chest tube placement as above. Blaine Jackson MD Catheter Change 07/27/15 0000 Signed Impressions: Service Date/Time: Monday, July 27, 2015 14:43 - CONCLUSION: Uncomplicated gastrostomy tube exchange as above. Blaine Jcakson MD Chest CT 07/11/15 0000 Signed Impressions: Service Date/Time: Saturday, July 11, 2015 09:49 - CONCLUSION: Scattered patchy densities significantly improved from previous study. Tiny anterior right basilar pneumothorax. Right-sided chest tube in good position. Néstor Matamoros MD Head CT 06/18/151902 Signed Impressions: Service Date/Time: June 19:31 - CONCLUSION: Diffuse atrophy unchanged. No acute intracranial findings. Kush Briscoe MD Abdomen/Pelvis CT 06/18/151902 Signed Impressions: Service Date/Time: June 19:36 - CONCLUSION: 1. Chronic nonspecific urinary bladder wall thickening. Bladder collapsed with Putnam catheter in place. 2. Chronic bilateral mid to lower lung zone groundglass opacity. 3. Nonobstructing left renal calculus. 4. Distended rectum. Kush Briscoe MD Objective Remarks GENERAL: 54-year-old male, cachectic, debilitated with contractures on PSV via trach. HEENT: NC/AT. PERRL. OP without erythema or exudates NECK: No JVD. Supple. 8.0 Distal XLT trach in place CARDIAC: RRR. S1/S2. No S4. No murmurs, clicks gallops or rubs. LUNGS: B/L equal air entry PSV / reduced to 8/ ABDOMEN: S/NT/ND. Positive BS EXTREMITIES: 1+ dependent pedal edema. Contractures and deformities of fingers. Stage III coccyx/sacral decubitus ulcer NEUROLOGY: Significant contractures of bilateral lower extremity, upper extremities. Eyes open spontaneously. Temporal and facial muscle wasting, muscular atrophy all extremities. Procedures 07/26- PEG replacement 07/29- right pigtail catheter placement for new pneumothorax Date of Insertion: Oct 05, 2015 A/P Assessment and Plan Neuro/Psych: Parkinson's disease Cognitive disorder Chronic encephalopathy Dementia Depression Contractures On no sedation. CT head 06/18/15: diffuse atrophy unchanged. No acute intracranial findings Continue Sinemet 25/100 q8 via PEG, Seroquel 50 mg twice a day, olanzapine 5 mg a night, Klonopin 2 mg every 8 hours, Paxil 20 daily Continue Lortab when necessary pain and fentanyl patch 50 g every 3 days for pain management. Fentanyl bolus prn breakthrough pain or if needed for turning/ nursing care/etc. Resp: Acute on chronic respiratory failure Chronic trach #8 Shiley distal XLT Pneumonia, aspiration (ESBL Klebsiella and Pseudomonas pneumonia) Right pneumothorax status post pigtail catheter 2 (resolved) Continue with vent support keep sat >90%. Ventilator bundle, pulm toilet, trach care, daily SBT, TP if tolerated for 2-4 hours (did not tolerate 10/27) Pulmonary Dr. Restrepo following. On Prednisone 60mg daily Exchanged to 8 Distal XLT on 08/15 to facilitate suctioning, trach care. Bronchodilators ( DuoNeb) CXR 10/18, 10/26: No acute pulmonary infiltrates. Cardiac History of orthostasis History of CAD History dyslipidemia History of hypertension Continue Midodrine 5 mg BID. Monitor HR and BP keep MAP>65mmHg. GI: Chronic moderate protein energy malnutrition Dysphagia Status post PEG Internal hemorrhoids Gastroesophageal reflux disease - TF Jevity 1.5 @ 60ml/hr, on Reglan 5mg Q8 PRN for high residuals. - On Prevacid 30 mg per PEG tube daily for GERD - 10/11 KUB abdomen: PEG tube in place. Unremarkable bowel gas pattern. FEN/Renal: Nonobstructing left renal calculus - Monitor renal function, I/O's. electrolytes replacement per protocol. ID: Aspiration pneumonia Cele UTI 10/19 Sputum: Pseudomonas- likely colonized 10/19 urine cx: Yeast species 10/12 BC: NGTD 10/11 BC: NGTD 10/11 Urine cx: C. Tropicalis 10/11 Sputum: ESBL Klebsiella and Pseudomonas pneumonia 10/10 Urine: C. Tropicalis 09/21 Urine cx: Pseudomonas ? colonized 09/19 Sputum cx: Pseudomonas, Kleb pneumonia ESBL pos Candiduria (cele tropicalis urine cx 08/17) ESBL positive Klebsiella/Pseudomonas pneumonia Stenotrophomonas in sputum 08/17 MRSA colonization Sepsis UTI Klebsiella ESBL positive (has been treated) Off abx s/p ( Merrem finished 10 day course 10/23) monitor for signs of infections ( Fever, WBC) ID service is following as needed- Dr. Enoc Moss. CXR 10/26 no acute changes. Endo: On SSI ( medium) with accuchecks Q6. Heme Normocytic Anemia - Monitor CBC MSK Bilateral lower extremity Contractures Stage III sacral decubitus present on admission - Wound care and PT on case Prophylaxis - GI - Prevacid - DVT - SCDs/ Lovenox. ACCESS: PIVs Level 2 Antonio Carr MD Oct 31, 2015 07:59
[2015-10-31] MEDS: ARTIFICIAL TEARS OPTH SOLN 15 ML BTL EACH EYE SCH ×3 (08:34→17:14)
[2015-10-31] MEDS: CHLORHEXIDINE 0.12% (ORAL KIT) 15 ML CUP MT SCH ×2 (08:34→20:28)
[2015-10-31] MEDS: predniSONE 20 MG TAB PO SCH (08:35)
[2015-10-31] MEDS: GABAPENTIN 300 MG CAP G-TUBE SCH ×2 (08:35→20:27)
[2015-10-31] MEDS: LANSOPRAZOLE SOLUTAB 30 MG TAB NG SCH (08:35)
[2015-10-31] MEDS: MIDODRINE 5 MG TAB G-TUBE SCH ×2 (08:35→20:27)
[2015-10-31] MEDS: QUEtiapine FUMARATE 25 MG TAB G-TUBE SCH ×2 (08:35→20:27)
[2015-10-31] MEDS: LACTOBACILLUS ACIDOPHILUS TAB PO SCH ×3 (08:35→17:14)
[2015-10-31] MEDS: PARoxetine HCL 20 MG TAB G-TUBE SCH (08:35)
[2015-10-31] MEDS: COLLAGENASE OINT 30 GM TUBE TOP SCH (08:36)
[2015-10-31] MEDS: SODIUM CHLORIDE 0.9% FLUSH 5 ML FLUSH IVF SCH ×2 (08:36→20:28)
--- NOTE | 2015-10-31 16:59 | HHI.PR ---
Subjective Remarks 54 YOWM with ChRF,Trach, multiple uti No fever Gets anxious. Mod amount of trach secretions. tolerated T -bar few hrs Now , on CPAP 8/, Fi02 35% Tolerates TF No new complaint Objective Vital Signs Vital Signs Date Time Temp Pulse Resp B/P Pulse Ox O2 Delivery O2 Flow Rate FiO2 10/31/15 14:00 84 10/31/15 12:00 98.3 74 26 108/74 100 10/31/15 12:00 50 10/31/15 12:00 74 10/31/15 12:00 100 35 10/31/15 10:00 70 10/31/15 09:45 100 T-piece 6.00 35 10/31/15 08:00 72 10/31/15 08:00 35 10/31/15 08:00 100 35 10/31/15 08:00 98.6 81 24 106/72 100 10/31/15 07:44 100 35 10/31/15 06:00 72 10/31/15 04:14 100 35 10/31/15 04:00 35 10/31/15 04:00 97.4 75 23 112/80 100 10/31/15 04:00 100 35 10/31/15 04:00 75 10/31/15 02:00 78 10/31/15 01:13 100 35 10/31/15 00:00 98.8 88 24 118/82 100 10/31/15 00:00 35 10/31/15 00:00 100 35 10/31/15 00:00 88 10/30/15 22:15 100 35 10/30/15 22:00 99 10/30/15 20:05 100 35 10/30/15 20:00 100 Mechanical Ventilator 35 10/30/15 20:00 35 10/30/15 20:00 99.2 96 26 133/91 100 10/30/15 20:00 96 10/30/15 18:00 86 I/O 10/30/15 10/30/15 10/30/15 10/31/15 10/31/15 10/31/15 07:00 15:00 23:00 07:00 15:00 23:00 Intake Total 293 ml 787 ml 404 ml 434 ml 544 ml Output Total 150 ml 600 ml 375 ml 275 ml 600 ml Balance 143 ml 187 ml 29 ml 159 ml -56 ml Intake Oral 0 ml 0 ml 0 ml 0 ml IV Total 0 ml 0 ml 0 ml 0 ml Tube Feeding 233 ml 527 ml 344 ml 434 ml 544 ml Tube Irrigant 60 ml 60 ml 60 ml 0 ml Other 200 ml Output Urine Total 150 ml 600 ml 375 ml 275 ml 600 ml Tube Feeding Residual Discard 0 ml # Bowel Movements 2 2 1 1 3 Result Diagram: 10/31/15 0503 10/31/15 0503 Objective Remarks GENERAL: MBMN male on Vent. SKIN: Warm and dry. HEAD: Normocephalic. EYES: No scleral icterus. No injection or drainage. NECK: Supple, trachea midline. No JVD or lymphadenopathy. has trach CARDIOVASCULAR: Regular rate and rhythm without murmurs, gallops, or rubs. RESPIRATORY: Breath sounds equal bilaterally. No accessory muscle use. GASTROINTESTINAL: Abdomen soft, non-tender, nondistended. PEG tube in place MUSCULOSKELETAL: No cyanosis, or edema. BACK: Nontender without obvious deformity. No CVA tenderness. A/P Assessment and Plan VDRF S/P Trach Parkinson's diasease Dementia Aspiration PLAN: TF Cont CPAP ACV prn sob, techypnoea. Trach care Cont Abx Daily T-Tube trial. Severiano Ag MD Oct 31, 2015 16:59
[2015-10-31] MEDS: OLANZapine 5 MG TAB GT SCH (20:27)
[2015-10-31] MEDS: ENOXAPARIN SODIUM 40 MG/0.4 ML SYRINGE SQ SCH (21:40)
[2015-11-01] VITALS (17 sets, daily range): BP systolic 112–157; BP diastolic 65–96; PULSE 71–88; RESP 21–26; TEMP 98.8–99.3; O2SAT 97–100
[2015-11-01] MEDS: INSULIN NovoLIN REGULAR SUPPLEMENTAL SCALE SQ SCH ×4 (06:00→17:17)
[2015-11-01] MEDS: CARBIDOPA/LEVODOPA 25 MG/100 MG TAB GT SCH ×3 (06:16→21:55)
[2015-11-01] MEDS: clonazePAM 1 MG TAB PO SCH ×3 (06:16→21:55)
[2015-11-01 06:43] LABS: AUTOMATED NEUTROPHIL # 8.6 TH/MM3 (1.8-7.7); BASOPHIL % 0.2 % (0.0-2.0); EOSINOPHIL # 0.1 TH/MM3 (0-0.4); EOSINOPHIL % 0.7 % (0.0-4.0); HEMATOCRIT 37.3 % (39.0-51.0); HEMO FLAGS DIFF FINAL; LYMPH % 16.2 % (9.0-44.0); LYMPHOCYTE # 1.8 TH/MM3 (1.0-4.8); MEAN CELL VOLUME 83.2 FL (80.0-100.0); MEAN CORPUSCULAR HEMOGLOBIN 27.2 PG (27.0-34.0); MEAN CORPUSCULAR HGB CONC 32.7 % (32.0-36.0); MONO % 5.6 % (0.0-8.0); NEUT % 77.3 % (16.0-70.0); PLATELET COUNT 165 TH/MM3 (150-450); RED BLOOD COUNT 4.48 MIL/MM3 (4.50-5.90); RED CELL DISTRIBUTION WIDTH 18.4 % (11.6-17.2); WHITE BLOOD COUNT 11.2 TH/MM3 (4.0-11.0)
[2015-11-01] MEDS: LANSOPRAZOLE SOLUTAB 30 MG TAB NG SCH (08:16)
[2015-11-01] MEDS: ARTIFICIAL TEARS OPTH SOLN 15 ML BTL EACH EYE SCH ×3 (08:16→17:19)
[2015-11-01] MEDS: CHLORHEXIDINE 0.12% (ORAL KIT) 15 ML CUP MT SCH ×2 (08:16→20:00)
[2015-11-01] MEDS: SODIUM CHLORIDE 0.9% FLUSH 5 ML FLUSH IVF SCH ×2 (08:16→21:00)
[2015-11-01] MEDS: MIDODRINE 5 MG TAB G-TUBE SCH ×2 (08:17→21:55)
[2015-11-01] MEDS: predniSONE 20 MG TAB PO SCH (08:17)
[2015-11-01] MEDS: QUEtiapine FUMARATE 25 MG TAB G-TUBE SCH ×2 (08:17→21:55)
[2015-11-01] MEDS: COLLAGENASE OINT 30 GM TUBE TOP SCH (08:17)
[2015-11-01] MEDS: PARoxetine HCL 20 MG TAB G-TUBE SCH (08:17)
[2015-11-01] MEDS: GABAPENTIN 300 MG CAP G-TUBE SCH ×2 (08:17→21:55)
[2015-11-01] MEDS: LACTOBACILLUS ACIDOPHILUS TAB PO SCH ×3 (08:17→17:17)
--- NOTE | 2015-11-01 08:52 | HHI.CCPN ---
Subjective Remarks/Hospital Course 06/17: Pt is a 54 yr man with multiple medical problems including Parkinson's disease, advanced dementia, hyponatremia, anxiety, pneumonia, GERD, cognitive disorder, and multidrug resistant UTI- ESBL02/19/15 , who resides in a assisted. Pt by report was found by staff in assisted to be less alert and having respiratory difficultly and fevers. Pt was brought to ED adn placed on ventilator. His workup was inclusive of labs, chest xray and ct head and abd/pelvis. WBC 16.4, +UTI, lactic acid 4, troponin ,0.02, BUN/ cre 18/ 0.76. CT head 06/18/15: diffuse atrophy unchanged. No acute intracranial findings ct abd/ pelvis with IV contrast: 06/18/15 Conclusion: 1. Chronic nonspecific urinary bladder wall thickening. Bladder collapsed with Putnam catheter in place. 2.Chronic bilateral mid to lower zone groundglass opacity. 3. Nonobstructing left renal calculus. 4. Distended rectum Pt admitted and fluid and abx ordered. 06/18: Drowsy, easily arousable. On mechanical ventilation via tracheostomy. Tachypneic. Resting tremor noted. 06/19: Drowsy, arousable. On mechanical ventilation via tracheostomy. 06/20: Drowsy, arousable. Remains on mechanical ventilation via tracheostomy. We'll repeat blood cultures, UA and urine cultures. Fluconazole IV added in view of yeast in urine. 07/06: Reconsulted as patient return to the ventilator on a right ventricular due to tachypnea. Low-grade temperatures. Tolerating tube feeding. Extremity encephalopathic demented patient with difficult neurological examination. 07/07: Status post chest tube placement by IR for right pneumothorax 07/06. Afebrile. Tolerating tube feeds. Positive BM. Currently tachypneic on the ventilator. Does not appear to be any acute distress. 07/08: Afebrile. Tolerating tube feeding. He is comfortable currently on CPAP trials 11/10. Positive BM. 07/09: Afebrile. Tolerating tube feeding. Appears comfortable on T bar. Positive BM. 07/10: Afebrile. Eyes are open. Remained on T piece overnight. Tolerating tube feeding. 07/11: MAXIMUM TEMPERATURE 100. Currently 98.6. Eyes are open. On ACV overnight secondary to "tachypnea and sweating". Switching back to PSV trials today. Goal is T piece during daytime, CPAP at night. 07/12: No acute events overnight. On PSV 15/5 -attempt TP up to 6 hours today. No pneumothorax on chest x-ray 07/13: Placed back on full ventilator support for tachypnea. Otherwise clinically unchanged. No fever today 07/14: Patient was on T piece yesterday evening, placed back on PSV overnight, patient mechanical ventilation this morning. Patient appears to be struggling with mechanical ventilation. Patient placed back on PSV with improvement 07/15: Patient placed back on mechanical ventilation last evening due to respiratory rate. It was indicated patient was tachypnea can the 40s. Patient on mechanical ventilation this time with respiration rate mid 20s. Chest tube still in place without any output, chest x-ray still indicating resolution of pneumothorax. 07/16: Patient seen and examined today. Patient placed back on mechanical ventilation overnight due to respiratory rate. Even on mechanical ventilation patient has respiration rate in the 30s. Patient afebrile, blood pressure stable. Continue vent weaning 07/17: Patient seen and examined. Currently afebrile. Currently on CPAP 15/5 @ 40%. Patient is awake with open mouth resting in bed in no apparent acute distress. Tolerating tube feeding. 2 bowel movements. 07/18: No neurological changes. Afebrile. 2 bowel moments. Tolerating tube feeding. We'll attempt TP trials today. On CPAP since 07/15 07/19 No events overnight. On CPAP with PS: 10, PEEP: 5 and FIO2 35%. Afebrile. On no sedation. 07/20 No events overnight. Tolerating CPAP. Afebrile. 07/21: Remains on CPAP. Attempt T piece trial today. Afebrile. One bowel movement. Tolerating tube feeding. 07/22: Afebrile. Positive BM. Tolerating tube feeding. Noted switched tracheostomy to #6 Shiley cuffed fenestrated. Neurologically unchanged 07/23: Afebrile. Positive BM. Tolerating tube feeding. Questionable leak in exchange trach. Place back on a rate/ACV overnight. Insufflated seems to be doing better at the present time. Will check chest x-ray. Possible he might need #6 XLT versus replacement of chronic #8 Shiley. 07/24: Tolerating TP today, RR in low 30s patient appears comfortable. No acute events overnight 07/25: Remains off the ventilator more than 36 hours now. Intermittently tachypneic probably breathing. Chest x-ray was clear yesterday. No acute events reported overnight. PEG not functioning per RN 08/02: Patient was transferred back to critical care service due to continuing ventilator management, tachypnea. Patient clinical status with no significant change. Patient with low-grade fever 100.2, 08/03: Patient seen and examined today. No significant change in clinical status. Patient still with chronic tachypnea. Patient afebrile now. 08/04: Patient seen and examined today. No change in clinical status. Patient still continues to have chronic tachypnea. Patient afebrile. Continue vent weaning 08/05: Patient seen and examined today. Patient had chest tube removed yesterday , chest x-ray shows redevelopment of pneumothorax. Chest tube replaced. Otherwise, patient still on ventilator with tachypnea. Afebrile 08/06: Patient seen and examined today. Patient went to have chest tube placed, repeat chest x-ray did not indicate any pneumothorax. No overnight events. We' ll need to pursue LTAC placement 08/07 No events overnight. On ventilator via trach. Afebrile. 08/08 Patient tolerated CPAP x4 hrs yesterday. Afebrile. On no sedation. 08/09 No events overnight. Tolerated CPAP x 12 hrs yesterday. Afebrile. 08/10 Patient tolerated TP's x 12 hrs yesterday back on ACV overnight. 08/11 No events overnight, currently on TP's with 40% FIO2. Afebrile. 08/12 On CPAP 10/5. Tolerated Tpiece 3 hours earlier today. Afebrile. 08/13 On CPAP 10/5. Not tolerating CPAP as well over last few days and RT notes challenge with suctioning respiratory secretions adequately. Discussing with healthcare proxy regarding exchange trach to 8.0. 08/14 Nursing and RT staff having continued difficulty suctioning respiratory secretions via 6.0 tracheostomy. KAREN Garcia did not consent to stoma dilation and trach upsize yesterday but said she would call back and let me know but no return call. Contacted again today and left a message. Afebrile. On CPAP 10/5. Brow furrowing on exam, appears to be in pain but pain not localizable. Tolerating tube feeds, had BM yesterday 08/15 Not tolerating CPAP today. Contacted healthcare surrogate again and discussed need for trach change. She consented and trach was dilated and up- sized to 8.0 Distal XLT to facilitate pulmonary toilet and to address volume leak. 08/16 No events overnight. Remains on ventilator via trach. Afebrile. Tolerating TF. 08/17 No events overnight. Afebrile. 08/18 Patient tolerated CPAP x 4 hrs yesterday. Afebrile.On ventilator via trach. 08/19 On CPAP 25/06. Temp max 99.3 08/20 Stenotrophomonas in sputum, started on Levaquin per ID. Temp max 99.8. On CPAP 20/09. Tube feeds were held because PEG was clogged but now PEG is functioning. 08/21 No events overnight. Afebrile. Remains on ventilator via trach. Has been tolerating CPAP trials for last 2 days. 08/22 No events overnight. Afebrile , Has been on CPAP all night with PS: 20, PEEP; 5 and FIO2 35%. 08/23 No events overnight. Remains on CPAP, T:99.9 08/24 No events overnight. On CPAP PS 10, PEEP; 5 and FIO2 35% overnight. Afebrile. 08/25 No events overnight. Afebrile. On CPAP overnight with PS 8, PEEP: 5 and FIO2 35%, afebrile. Tolerating TF. 08/26 Tolerating Tpiece. 08/27 Tolerated Tpiece yesterday and overnight. However this evening desaturated and was placed back on CPAP. Dr. Mistry attempted to update daughter Radha Foreman and discuss his overall poor prognosis for recovery, but call got disconnected midway through call and could not reach her back 08/28 On PSV 10/5 40% today. Afebrile. 08/29 On CPAP overnight. Now on Tpiece 70% per pulmonology. Increased yellow secretions noted. Temp max 99.1 Nursing staff expresses concern that he appears uncomfortable during all nursing care. Called elsa Garcia to update , no answer, left message to call me. 08/30: On CPAP overnight. Currently on T piece at 45%. Currently afebrile. Positive BM. Tolerating tube feeding. 08/31: On CPAP overnight. Will return T piece at 35%. MAXIMUM TEMPERATURE 99.6. 5 bowel movements. Tolerating tube feeds. Neurological examination unchanged. 09/01: Tmax 99.2. Currently afebrile. Currently in TPs at 35%. 7 bowel movement overnight. Tolerating tube feeding. Subjective: 09/19: Ciarra called secondary to aspiration on Gen. medical floor. Transfer to ICU and placed on mechanical ventilation. ABG shows CO2 retention. Etc. revealed no acute cardiac 20 finds however copious message to feed suctioned from trach tube 09/20 No events overnight. Afebrile. On ACV with RR 16, TV 500, PEEP: 5 and FIO2 40%. 09/21 No events overnight. Afebrile. 09/22 No events overnight. Tolerated CPAP all day yesterday with PS 12, PEEP:5 and FIO2 35%. Afebrile. 09/23 No events overnight. On no sedation Tolerated CPAP yesterday. Had T:100.3 last night. 09/24 Patient tolerated TP's x 6 hrs yesterday On CPAP 12/5 with 35% FIO2 overnight. Afebrile. 09/25 No events overnight. On CPAP overnight and TP's during day. Tolerating tube feeds. 10/11 Reconsult: Ciarra was called as patient was found hypotensive with SBP 80' s and tube feeds coming from trach site. Patient is receiving 1L bolus NS and STAT CXR showed mild pulm edema. On arrival to ICU patient was connected to ventilator ( On ACV RR 16, TV 500, PEEP:5 and FIO2 40% with sats 95%. Current BP 125/91 , P:81 10/12 Patient remains on ventilator overnight. Borderline low BP with MAP ranges 67-72. Afebrile. On no sedation. 10/13 Patient is on ventilator via trach, afebrile, WBC trending down. Patient was hypotensive yesterday responded to fluid resuscitation not on any pressors. 10/14: No acute events overnight. WBC count has normalized. Will start SBT as tolerated. CXR in am 10/15 No acute events overnight. Phosphorus low needs replacement. Otherwise neuro exam remains unchanged. remains on CPAP 10/16 Patient remains on ventilator via trach. On no sedation. Afebrile. 10/17 No acute events overnight. On ventilator via trach. Afebrile. 10/18 Tolerates CPAP, but unable to wean further. Otherwise no acute events overnight, remains afebrile 10/19 Patient is on ventilator via trach, UO 175ml in last 7 hrs. Afebrile. Tolerated CPAP x 6 hrs yesterday. 10/20 No acute events overnight. Tolerated CPAP for several hrs yesterday. Afebrile. UO better ( 1275ml in 24hrs). Given 1L NS total yesterday for decrease UO. 10/21 Patient is on ventilator via trach tolerated CPAP for most of day yesterday. Afebrile. Tolerating tube feeds. 10/22 No acute events overnight. Patient was on CPAP all day yesterday. Afebrile. 10/23 Patient tolerated all day yesterday. On ventilator via trach. Afebrile. 10/24 Patient remains on ventilator via trach. Afebrile. 10/25 Remains on vent on PSV 15/5. No acute events overnight. WBC slightly increased 10/26 PSV reduced to 10/5. Required AC/VC support yesterday as patient became tachypneic. No other changes 10/27 no acute changes overnight. Tolerating 10 over 5 PSV. WBC count has normalized, T piece today 10/28: No acute events overnight. Did not tolerate T piece trial yesterday. Tolerated CPAP. No fever 10/29: No acute events reported. Currently on 12 over 5 pressure support, reduced to 8/5. No fever 10/30 No acute events overnight. On CPAP with PS 10, PEEP: 5 and FIO2 35% overnight. Afebrile. 10/31: Remains on T piece since yesterday. Objective - Vital Signs Date Time Temp Pulse Resp B/P Pulse Ox O2 Delivery O2 Flow Rate FiO2 11/01/15 07:38 99 T-piece 6.00 11/01/15 06:00 74 11/01/15 04:02 35 11/01/15 00:00 98.9 21 112/81 Intake and Output 10/31/15 10/31/15 11/01/15 08:00 16:00 00:00 Intake Total 434 ml 544 ml 451 ml Output Total 275 ml 600 ml 475 ml Balance 159 ml -56 ml -24 ml Result Diagram: 11/01/15 0556 10/31/15 0503 Other Results Laboratory Tests Test 10/31/15 05:03 White Blood Count 11.4 TH/MM3 Red Blood Count 4.34 MIL/MM3 Hemoglobin 11.6 GM/DL Hematocrit 35.9 % Mean Corpuscular Volume 82.7 FL Mean Corpuscular Hemoglobin 26.6 PG Mean Corpuscular Hemoglobin 32.2 % Concent Red Cell Distribution Width 18.4 % Platelet Count 212 TH/MM3 Mean Platelet Volume 10.2 FL Neutrophils (%) (Auto) 77.4 % Lymphocytes (%) (Auto) 15.7 % Monocytes (%) (Auto) 5.8 % Eosinophils (%) (Auto) 0.8 % Basophils (%) (Auto) 0.3 % Neutrophils # (Auto) 8.8 TH/MM3 Lymphocytes # (Auto) 1.8 TH/MM3 Monocytes # (Auto) 0.7 TH/MM3 Eosinophils # (Auto) 0.1 TH/MM3 Basophils # (Auto) 0.0 TH/MM3 CBC Comment DIFF FINAL Differential Comment Sodium Level 136 MEQ/L Potassium Level 3.8 MEQ/L Chloride Level 101 MEQ/L Carbon Dioxide Level 27.8 MEQ/L Anion Gap 7 MEQ/L Blood Urea Nitrogen 20 MG/DL Creatinine 0.43 MG/DL Estimat Glomerular Filtration 207 ML/MIN Rate Random Glucose 168 MG/DL Calcium Level 8.8 MG/DL Total Bilirubin 0.3 MG/DL Aspartate Amino Transf 17 U/L (AST/SGOT) Alanine Aminotransferase 40 U/L (ALT/SGPT) Alkaline Phosphatase 75 U/L Total Protein 6.6 GM/DL Albumin 2.9 GM/DL Imaging Last Impressions Chest X-Ray 10/27/15 0600 Signed Impressions: Service Date/Time: Tuesday, October 27, 2015 04:06 - CONCLUSION: Stable chest x-ray without an acute finding identified. Erlin Barajas MD Upper Extremity Ultrasound 10/13/15 0000 Signed Impressions: Service Date/Time: Tuesday, October 13, 2015 09:51 - CONCLUSION: 1. No evidence of deep venous thrombosis. John Anderson MD Abdomen X-Ray 10/12/15 0000 Signed Impressions: Service Date/Time: Monday, October 12, 2015 17:37 - CONCLUSION: 1. Gastrostomy tube in place 2. Unremarkable bowel gas pattern. Salazar Thurman MD Renal Ultrasound 10/07/15 0000 Signed Impressions: Service Date/Time: Wednesday, October 07, 2015 18:29 - CONCLUSION: 1. No acute findings. 3.6 cm left renal cyst. Putnam catheter in bladder. Amaury Ellsworth MD Tunnelled Chest Tube Removal 08/05/15 1100 Signed Impressions: Service Date/Time: Wednesday, August 05, 2015 11:00 - CONCLUSION: Uncomplicated chest tube removal. Blaine Jackson MD Chest Tube Change 07/31/15 0000 Signed Impressions: Service Date/Time: Friday, July 31, 2015 14:34 - CONCLUSION: Uncomplicated reposition of previously placed chest tube as above. Blaine Jackson MD Chest Tube Insertion 07/30/15 0000 Signed Impressions: Service Date/Time: July 14:50 - CONCLUSION: Uncomplicated chest tube placement as above. Blaine Jackson MD Catheter Change 07/27/15 0000 Signed Impressions: Service Date/Time: Monday, July 27, 2015 14:43 - CONCLUSION: Uncomplicated gastrostomy tube exchange as above. Blaine Jackson MD Chest CT 07/11/15 0000 Signed Impressions: Service Date/Time: Saturday, July 11, 2015 09:49 - CONCLUSION: Scattered patchy densities significantly improved from previous study. Tiny anterior right basilar pneumothorax. Right-sided chest tube in good position. Néstor Matamoros MD Head CT 06/18/151902 Signed Impressions: Service Date/Time: June 19:31 - CONCLUSION: Diffuse atrophy unchanged. No acute intracranial findings. Kush Briscoe MD Abdomen/Pelvis CT 06/18/151902 Signed Impressions: Service Date/Time: June 19:36 - CONCLUSION: 1. Chronic nonspecific urinary bladder wall thickening. Bladder collapsed with Putnam catheter in place. 2. Chronic bilateral mid to lower lung zone groundglass opacity. 3. Nonobstructing left renal calculus. 4. Distended rectum. Kush Briscoe MD Objective Remarks GENERAL: 54-year-old male, cachectic, debilitated with contractures on PSV via trach. HEENT: NC/AT. PERRL. OP without erythema or exudates NECK: No JVD. Supple. 8.0 Distal XLT trach in place CARDIAC: RRR. S1/S2. No S4. No murmurs, clicks gallops or rubs. LUNGS: B/L equal air entry. On T piece. ABDOMEN: S/NT/ND. Positive BS EXTREMITIES: 1+ dependent pedal edema. Contractures and deformities of fingers. Stage III coccyx/sacral decubitus ulcer NEUROLOGY: Significant contractures of bilateral lower extremity, upper extremities. Eyes open spontaneously. Temporal and facial muscle wasting, muscular atrophy all extremities. Procedures 07/26- PEG replacement 07/29- right pigtail catheter placement for new pneumothorax Date of Insertion: Oct 05, 2015 A/P Assessment and Plan Neuro/Psych: Parkinson's disease Cognitive disorder Chronic encephalopathy Dementia Depression Contractures On no sedation. CT head 06/18/15: diffuse atrophy unchanged. No acute intracranial findings Continue Sinemet 25/100 q8 via PEG, Seroquel 50 mg twice a day, olanzapine 5 mg a night, Klonopin 2 mg every 8 hours, Paxil 20 daily Continue Lortab when necessary pain and fentanyl patch 50 g every 3 days for pain management. Fentanyl bolus prn breakthrough pain or if needed for turning/ nursing care/etc. Resp: Acute on chronic respiratory failure Chronic trach #8 Shiley distal XLT Pneumonia, aspiration (ESBL Klebsiella and Pseudomonas pneumonia) Right pneumothorax status post pigtail catheter 2 (resolved) On T piece since 10/30. Pulmonary Dr. Restrepo following. On Prednisone 60mg daily Exchanged to 8 Distal XLT on 08/15 to facilitate suctioning, trach care. Bronchodilators ( DuoNeb) CXR 10/18, 10/26: No acute pulmonary infiltrates. Cardiac History of orthostasis History of CAD History dyslipidemia History of hypertension Continue Midodrine 5 mg BID. Monitor HR and BP keep MAP>65mmHg. GI: Chronic moderate protein energy malnutrition Dysphagia Status post PEG Internal hemorrhoids Gastroesophageal reflux disease - TF Jevity 1.5 @ 60ml/hr, on Reglan 5mg Q8 PRN for high residuals. - On Prevacid 30 mg per PEG tube daily for GERD - 10/11 KUB abdomen: PEG tube in place. Unremarkable bowel gas pattern. FEN/Renal: Nonobstructing left renal calculus - Monitor renal function, I/O's. electrolytes replacement per protocol. ID: Aspiration pneumonia Cele UTI 10/19 Sputum: Pseudomonas- likely colonized 10/19 urine cx: Yeast species 10/12 BC: NGTD 10/11 BC: NGTD 10/11 Urine cx: C. Tropicalis 10/11 Sputum: ESBL Klebsiella and Pseudomonas pneumonia 10/10 Urine: C. Tropicalis 09/21 Urine cx: Pseudomonas ? colonized 09/19 Sputum cx: Pseudomonas, Kleb pneumonia ESBL pos Candiduria (cele tropicalis urine cx 08/17) ESBL positive Klebsiella/Pseudomonas pneumonia Stenotrophomonas in sputum 08/17 MRSA colonization Sepsis UTI Klebsiella ESBL positive (has been treated) Off abx s/p ( Merrem finished 10 day course 10/23) monitor for signs of infections ( Fever, WBC) ID service is following as needed- Dr. Enoc Moss. CXR 10/26 no acute changes. Endo: On SSI ( medium) with accuchecks Q6. Heme Normocytic Anemia - Monitor CBC MSK Bilateral lower extremity Contractures Stage III sacral decubitus present on admission - Wound care and PT on case Prophylaxis - GI - Prevacid - DVT - SCDs/ Lovenox. ACCESS: PIVs Level 2 Jules Moss MD Nov 01, 2015 08:52
[2015-11-01 09:29] LABS: BICARBONATE 35.4 MEQ/L (21.0-32.0); POTASSIUM 3.9 MEQ/L (3.5-5.1)
--- NOTE | 2015-11-01 16:20 | HHI.PR ---
Subjective Remarks 54 YOWM with ChRF,Trach, multiple uti No fever Gets anxious. Mod amount of trach secretions. Tolerating T-Bar Tolerates TF No new complaint Objective Vital Signs Vital Signs Date Time Temp Pulse Resp B/P Pulse Ox O2 Delivery O2 Flow Rate FiO2 11/01/15 14:00 84 11/01/15 12:00 99.3 74 24 157/96 100 11/01/15 12:00 74 11/01/15 12:00 100 T-Piece 35 11/01/15 10:00 87 11/01/15 08:00 35 11/01/15 08:00 75 11/01/15 08:00 100 T-Piece 35 11/01/15 08:00 99.0 75 26 130/65 100 11/01/15 07:38 99 T-piece 6.00 11/01/15 06:00 74 11/01/15 04:02 99 35 11/01/15 04:00 100 Mechanical Ventilator 35 11/01/15 04:00 35 11/01/15 04:00 71 11/01/15 02:00 75 11/01/15 01:15 100 35 11/01/15 00:00 100 Mechanical Ventilator 35 11/01/15 00:00 78 11/01/15 00:00 35 11/01/15 00:00 98.9 80 21 112/81 99 10/31/15 22:10 100 35 10/31/15 22:00 82 10/31/15 20:05 100 35 10/31/15 20:00 98.3 79 20 135/88 100 10/31/15 20:00 100 Mechanical Ventilator 35 10/31/15 20:00 79 10/31/15 20:00 35 10/31/15 18:00 78 I/O 10/31/15 10/31/15 10/31/15 11/01/15 11/01/15 11/01/15 07:00 15:00 23:00 07:00 15:00 23:00 Intake Total 434 ml 544 ml 451 ml 441 ml 660 ml Output Total 275 ml 600 ml 475 ml 300 ml 460 ml Balance 159 ml -56 ml -24 ml 141 ml 200 ml Intake Oral 0 ml IV Total 0 ml Tube Feeding 434 ml 544 ml 451 ml 441 ml 460 ml Tube Irrigant 0 ml Other 200 ml Output Urine Total 275 ml 600 ml 475 ml 300 ml 460 ml # Bowel Movements 1 3 1 1 2 Result Diagram: 11/01/15 0556 11/01/15 0556 Objective Remarks GENERAL: MBMN male on Vent. SKIN: Warm and dry. HEAD: Normocephalic. EYES: No scleral icterus. No injection or drainage. NECK: Supple, trachea midline. No JVD or lymphadenopathy. has trach CARDIOVASCULAR: Regular rate and rhythm without murmurs, gallops, or rubs. RESPIRATORY: Breath sounds equal bilaterally. No accessory muscle use. GASTROINTESTINAL: Abdomen soft, non-tender, nondistended. PEG tube in place MUSCULOSKELETAL: No cyanosis, or edema. BACK: Nontender without obvious deformity. No CVA tenderness. A/P Assessment and Plan VDRF S/P Trach Parkinson's diasease Dementia Aspiration PLAN: TF Cont Trach collar Trach care Cont Abx CPAP prn Severiano Ag MD Nov 01, 2015 16:20
[2015-11-01] MEDS: OLANZapine 5 MG TAB GT SCH (21:55)
[2015-11-01] MEDS: ENOXAPARIN SODIUM 40 MG/0.4 ML SYRINGE SQ SCH (21:55)
[2015-11-02] VITALS (16 sets, daily range): BP systolic 101–142; BP diastolic 79–102; PULSE 78–89; RESP 22–30; TEMP 85–99; O2SAT 98–100
[2015-11-02] MEDS: INSULIN NovoLIN REGULAR SUPPLEMENTAL SCALE SQ SCH ×5 (06:00→23:40)
[2015-11-02] MEDS: CARBIDOPA/LEVODOPA 25 MG/100 MG TAB GT SCH ×3 (06:28→21:32)
[2015-11-02] MEDS: clonazePAM 1 MG TAB PO SCH ×3 (06:28→21:33)
[2015-11-02] MEDS: GABAPENTIN 300 MG CAP G-TUBE SCH ×2 (07:52→21:32)
[2015-11-02] MEDS: predniSONE 20 MG TAB PO SCH (07:52)
[2015-11-02] MEDS: LANSOPRAZOLE SOLUTAB 30 MG TAB NG SCH (07:52)
[2015-11-02] MEDS: MIDODRINE 5 MG TAB G-TUBE SCH ×2 (07:53→21:32)
[2015-11-02] MEDS: LACTOBACILLUS ACIDOPHILUS TAB PO SCH ×3 (07:53→16:52)
[2015-11-02] MEDS: QUEtiapine FUMARATE 25 MG TAB G-TUBE SCH ×2 (07:53→21:32)
[2015-11-02] MEDS: PARoxetine HCL 20 MG TAB G-TUBE SCH (07:53)
[2015-11-02] MEDS: ARTIFICIAL TEARS OPTH SOLN 15 ML BTL EACH EYE SCH ×3 (07:53→16:53)
[2015-11-02] MEDS: SODIUM CHLORIDE 0.9% FLUSH 5 ML FLUSH IVF SCH ×2 (07:53→21:33)
[2015-11-02] MEDS: COLLAGENASE OINT 30 GM TUBE TOP SCH (07:54)
[2015-11-02] MEDS: REMOVE OLD PATCH TD SCH (07:54)
[2015-11-02] MEDS: CHLORHEXIDINE 0.12% (ORAL KIT) 15 ML CUP MT SCH ×2 (07:56→21:33)
--- NOTE | 2015-11-02 17:36 | HHI.PR ---
Subjective Remarks 54 YOWM with ChRF,Trach, multiple uti No fever Gets anxious. Mod amount of trach secretions. Tolerating T-Bar No new complaint Objective Vital Signs Vital Signs Date Time Temp Pulse Resp B/P Pulse Ox O2 Delivery O2 Flow Rate FiO2 11/02/15 16:00 88 11/02/15 16:00 100 Mechanical Ventilator 40 11/02/15 16:00 35 11/02/15 16:00 97.8 88 28 118/83 100 11/02/15 14:00 89 11/02/15 12:00 78 11/02/15 12:00 98 Mechanical Ventilator 40 11/02/15 12:00 35 11/02/15 12:00 98.0 78 22 115/79 98 11/02/15 10:00 81 11/02/15 08:06 100 T-piece 40 11/02/15 08:00 85.0 85 30 101/82 100 11/02/15 08:00 35 11/02/15 08:00 100 Mechanical Ventilator 40 11/02/15 08:00 85 11/02/15 06:00 82 11/02/15 04:09 100 35 11/02/15 04:00 35 11/02/15 04:00 81 11/02/15 04:00 99.0 81 23 130/102 100 11/02/15 04:00 100 Mechanical Ventilator 35 11/02/15 02:00 85 11/02/15 01:15 100 25 11/02/15 00:00 100 Mechanical Ventilator 35 11/02/15 00:00 89 11/02/15 00:00 35 11/02/15 00:00 98.9 89 25 142/97 100 11/01/15 22:10 100 35 11/01/15 22:00 88 11/01/15 20:00 100 Mechanical Ventilator 35 11/01/15 20:00 98.8 82 26 100 11/01/15 20:00 35 11/01/15 20:00 74 11/01/15 19:40 100 35 11/01/15 18:00 79 I/O 11/01/15 11/01/15 11/01/15 11/02/15 11/02/15 11/02/15 07:00 15:00 23:00 07:00 15:00 23:00 Intake Total 441 ml 660 ml 813 ml Output Total 300 ml 460 ml 550 ml Balance 141 ml 200 ml 263 ml Tube Feeding 441 ml 460 ml 653 ml Tube Irrigant 160 ml Other 200 ml Output Urine Total 300 ml 460 ml 550 ml # Bowel Movements 1 2 2 Result Diagram: 11/01/1556 11/01/1556 Objective Remarks GENERAL: MBMN male on Vent. SKIN: Warm and dry. HEAD: Normocephalic. EYES: No scleral icterus. No injection or drainage. NECK: Supple, trachea midline. No JVD or lymphadenopathy. has trach CARDIOVASCULAR: Regular rate and rhythm without murmurs, gallops, or rubs. RESPIRATORY: Breath sounds equal bilaterally. No accessory muscle use. GASTROINTESTINAL: Abdomen soft, non-tender, nondistended. PEG tube in place MUSCULOSKELETAL: No cyanosis, or edema. BACK: Nontender without obvious deformity. No CVA tenderness. A/P Assessment and Plan VDRF S/P Trach Parkinson's diasease Dementia Aspiration PLAN: TF on hold Cont Trach collar Trach care Cont Abx CPAP prn Severiano Ag MD Nov 02, 2015 17:36
[2015-11-02] MEDS: OLANZapine 5 MG TAB GT SCH (21:32)
[2015-11-02] MEDS: ENOXAPARIN SODIUM 40 MG/0.4 ML SYRINGE SQ SCH (21:33)
[2015-11-03] VITALS (14 sets, daily range): BP systolic 118–157; BP diastolic 83–99; PULSE 68–91; RESP 19–28; TEMP 96.7–97.9; O2SAT 99–100
[2015-11-03] MEDS: clonazePAM 1 MG TAB PO SCH ×3 (05:37→20:47)
[2015-11-03] MEDS: CARBIDOPA/LEVODOPA 25 MG/100 MG TAB GT SCH ×3 (05:37→20:47)
[2015-11-03] MEDS: INSULIN NovoLIN REGULAR SUPPLEMENTAL SCALE SQ SCH ×4 (05:37→23:46)
[2015-11-03] MEDS: predniSONE 20 MG TAB PO SCH (08:28)
[2015-11-03] MEDS: LACTOBACILLUS ACIDOPHILUS TAB PO SCH ×3 (08:28→17:15)
[2015-11-03] MEDS: MIDODRINE 5 MG TAB G-TUBE SCH ×2 (08:28→20:48)
[2015-11-03] MEDS: GABAPENTIN 300 MG CAP G-TUBE SCH ×2 (08:28→20:47)
[2015-11-03] MEDS: QUEtiapine FUMARATE 25 MG TAB G-TUBE SCH ×2 (08:28→20:47)
[2015-11-03] MEDS: PARoxetine HCL 20 MG TAB G-TUBE SCH (08:28)
[2015-11-03] MEDS: LANSOPRAZOLE SOLUTAB 30 MG TAB NG SCH (08:28)
[2015-11-03] MEDS: ARTIFICIAL TEARS OPTH SOLN 15 ML BTL EACH EYE SCH ×3 (08:29→17:15)
[2015-11-03] MEDS: COLLAGENASE OINT 30 GM TUBE TOP SCH (08:29)
[2015-11-03] MEDS: SODIUM CHLORIDE 0.9% FLUSH 5 ML FLUSH IVF SCH ×2 (08:30→20:49)
[2015-11-03] MEDS: CHLORHEXIDINE 0.12% (ORAL KIT) 15 ML CUP MT SCH ×2 (08:30→20:48)
--- NOTE | 2015-11-03 11:19 | HHI.CCPN ---
Subjective Remarks/Hospital Course 06/17: Pt is a 54 yr man with multiple medical problems including Parkinson's disease, advanced dementia, hyponatremia, anxiety, pneumonia, GERD, cognitive disorder, and multidrug resistant UTI- ESBL02/19/15 , who resides in a detention. Pt by report was found by staff in detention to be less alert and having respiratory difficultly and fevers. Pt was brought to ED adn placed on ventilator. His workup was inclusive of labs, chest xray and ct head and abd/pelvis. WBC 16.4, +UTI, lactic acid 4, troponin ,0.02, BUN/ cre 18/ 0.76. CT head 06/18/15: diffuse atrophy unchanged. No acute intracranial findings ct abd/ pelvis with IV contrast: 06/18/15 Conclusion: 1. Chronic nonspecific urinary bladder wall thickening. Bladder collapsed with Putnam catheter in place. 2.Chronic bilateral mid to lower zone groundglass opacity. 3. Nonobstructing left renal calculus. 4. Distended rectum Pt admitted and fluid and abx ordered. 06/18: Drowsy, easily arousable. On mechanical ventilation via tracheostomy. Tachypneic. Resting tremor noted. 06/19: Drowsy, arousable. On mechanical ventilation via tracheostomy. 06/20: Drowsy, arousable. Remains on mechanical ventilation via tracheostomy. We'll repeat blood cultures, UA and urine cultures. Fluconazole IV added in view of yeast in urine. 07/06: Reconsulted as patient return to the ventilator on a right ventricular due to tachypnea. Low-grade temperatures. Tolerating tube feeding. Extremity encephalopathic demented patient with difficult neurological examination. 07/07: Status post chest tube placement by IR for right pneumothorax 07/06. Afebrile. Tolerating tube feeds. Positive BM. Currently tachypneic on the ventilator. Does not appear to be any acute distress. 07/08: Afebrile. Tolerating tube feeding. He is comfortable currently on CPAP trials 11/10. Positive BM. 07/09: Afebrile. Tolerating tube feeding. Appears comfortable on T bar. Positive BM. 07/10: Afebrile. Eyes are open. Remained on T piece overnight. Tolerating tube feeding. 07/11: MAXIMUM TEMPERATURE 100. Currently 98.6. Eyes are open. On ACV overnight secondary to "tachypnea and sweating". Switching back to PSV trials today. Goal is T piece during daytime, CPAP at night. 07/12: No acute events overnight. On PSV 15/5 -attempt TP up to 6 hours today. No pneumothorax on chest x-ray 07/13: Placed back on full ventilator support for tachypnea. Otherwise clinically unchanged. No fever today 07/14: Patient was on T piece yesterday evening, placed back on PSV overnight, patient mechanical ventilation this morning. Patient appears to be struggling with mechanical ventilation. Patient placed back on PSV with improvement 07/15: Patient placed back on mechanical ventilation last evening due to respiratory rate. It was indicated patient was tachypnea can the 40s. Patient on mechanical ventilation this time with respiration rate mid 20s. Chest tube still in place without any output, chest x-ray still indicating resolution of pneumothorax. 07/16: Patient seen and examined today. Patient placed back on mechanical ventilation overnight due to respiratory rate. Even on mechanical ventilation patient has respiration rate in the 30s. Patient afebrile, blood pressure stable. Continue vent weaning 07/17: Patient seen and examined. Currently afebrile. Currently on CPAP 15/5 @ 40%. Patient is awake with open mouth resting in bed in no apparent acute distress. Tolerating tube feeding. 2 bowel movements. 07/18: No neurological changes. Afebrile. 2 bowel moments. Tolerating tube feeding. We'll attempt TP trials today. On CPAP since 07/15 07/19 No events overnight. On CPAP with PS: 10, PEEP: 5 and FIO2 35%. Afebrile. On no sedation. 07/20 No events overnight. Tolerating CPAP. Afebrile. 07/21: Remains on CPAP. Attempt T piece trial today. Afebrile. One bowel movement. Tolerating tube feeding. 07/22: Afebrile. Positive BM. Tolerating tube feeding. Noted switched tracheostomy to #6 Shiley cuffed fenestrated. Neurologically unchanged 07/23: Afebrile. Positive BM. Tolerating tube feeding. Questionable leak in exchange trach. Place back on a rate/ACV overnight. Insufflated seems to be doing better at the present time. Will check chest x-ray. Possible he might need #6 XLT versus replacement of chronic #8 Shiley. 07/24: Tolerating TP today, RR in low 30s patient appears comfortable. No acute events overnight 07/25: Remains off the ventilator more than 36 hours now. Intermittently tachypneic probably breathing. Chest x-ray was clear yesterday. No acute events reported overnight. PEG not functioning per RN 08/02: Patient was transferred back to critical care service due to continuing ventilator management, tachypnea. Patient clinical status with no significant change. Patient with low-grade fever 100.2, 08/03: Patient seen and examined today. No significant change in clinical status. Patient still with chronic tachypnea. Patient afebrile now. 08/04: Patient seen and examined today. No change in clinical status. Patient still continues to have chronic tachypnea. Patient afebrile. Continue vent weaning 08/05: Patient seen and examined today. Patient had chest tube removed yesterday , chest x-ray shows redevelopment of pneumothorax. Chest tube replaced. Otherwise, patient still on ventilator with tachypnea. Afebrile 08/06: Patient seen and examined today. Patient went to have chest tube placed, repeat chest x-ray did not indicate any pneumothorax. No overnight events. We' ll need to pursue LTAC placement 08/07 No events overnight. On ventilator via trach. Afebrile. 08/08 Patient tolerated CPAP x4 hrs yesterday. Afebrile. On no sedation. 08/09 No events overnight. Tolerated CPAP x 12 hrs yesterday. Afebrile. 08/10 Patient tolerated TP's x 12 hrs yesterday back on ACV overnight. 08/11 No events overnight, currently on TP's with 40% FIO2. Afebrile. 08/12 On CPAP 10/5. Tolerated Tpiece 3 hours earlier today. Afebrile. 08/13 On CPAP 10/5. Not tolerating CPAP as well over last few days and RT notes challenge with suctioning respiratory secretions adequately. Discussing with healthcare proxy regarding exchange trach to 8.0. 08/14 Nursing and RT staff having continued difficulty suctioning respiratory secretions via 6.0 tracheostomy. KAREN Garcia did not consent to stoma dilation and trach upsize yesterday but said she would call back and let me know but no return call. Contacted again today and left a message. Afebrile. On CPAP 10/5. Brow furrowing on exam, appears to be in pain but pain not localizable. Tolerating tube feeds, had BM yesterday 08/15 Not tolerating CPAP today. Contacted healthcare surrogate again and discussed need for trach change. She consented and trach was dilated and up- sized to 8.0 Distal XLT to facilitate pulmonary toilet and to address volume leak. 08/16 No events overnight. Remains on ventilator via trach. Afebrile. Tolerating TF. 08/17 No events overnight. Afebrile. 08/18 Patient tolerated CPAP x 4 hrs yesterday. Afebrile.On ventilator via trach. 08/19 On CPAP 25/06. Temp max 99.3 08/20 Stenotrophomonas in sputum, started on Levaquin per ID. Temp max 99.8. On CPAP 20/09. Tube feeds were held because PEG was clogged but now PEG is functioning. 08/21 No events overnight. Afebrile. Remains on ventilator via trach. Has been tolerating CPAP trials for last 2 days. 08/22 No events overnight. Afebrile , Has been on CPAP all night with PS: 20, PEEP; 5 and FIO2 35%. 08/23 No events overnight. Remains on CPAP, T:99.9 08/24 No events overnight. On CPAP PS 10, PEEP; 5 and FIO2 35% overnight. Afebrile. 08/25 No events overnight. Afebrile. On CPAP overnight with PS 8, PEEP: 5 and FIO2 35%, afebrile. Tolerating TF. 08/26 Tolerating Tpiece. 08/27 Tolerated Tpiece yesterday and overnight. However this evening desaturated and was placed back on CPAP. Dr. Mistry attempted to update daughter Radha Foreman and discuss his overall poor prognosis for recovery, but call got disconnected midway through call and could not reach her back 08/28 On PSV 10/5 40% today. Afebrile. 08/29 On CPAP overnight. Now on Tpiece 70% per pulmonology. Increased yellow secretions noted. Temp max 99.1 Nursing staff expresses concern that he appears uncomfortable during all nursing care. Called elsa Garcia to update , no answer, left message to call me. 08/30: On CPAP overnight. Currently on T piece at 45%. Currently afebrile. Positive BM. Tolerating tube feeding. 08/31: On CPAP overnight. Will return T piece at 35%. MAXIMUM TEMPERATURE 99.6. 5 bowel movements. Tolerating tube feeds. Neurological examination unchanged. 09/01: Tmax 99.2. Currently afebrile. Currently in TPs at 35%. 7 bowel movement overnight. Tolerating tube feeding. Subjective: 09/19: Ciarra called secondary to aspiration on Gen. medical floor. Transfer to ICU and placed on mechanical ventilation. ABG shows CO2 retention. Etc. revealed no acute cardiac 20 finds however copious message to feed suctioned from trach tube 09/20 No events overnight. Afebrile. On ACV with RR 16, TV 500, PEEP: 5 and FIO2 40%. 09/21 No events overnight. Afebrile. 09/22 No events overnight. Tolerated CPAP all day yesterday with PS 12, PEEP:5 and FIO2 35%. Afebrile. 09/23 No events overnight. On no sedation Tolerated CPAP yesterday. Had T:100.3 last night. 09/24 Patient tolerated TP's x 6 hrs yesterday On CPAP 12/5 with 35% FIO2 overnight. Afebrile. 09/25 No events overnight. On CPAP overnight and TP's during day. Tolerating tube feeds. 10/11 Reconsult: Ciarra was called as patient was found hypotensive with SBP 80' s and tube feeds coming from trach site. Patient is receiving 1L bolus NS and STAT CXR showed mild pulm edema. On arrival to ICU patient was connected to ventilator ( On ACV RR 16, TV 500, PEEP:5 and FIO2 40% with sats 95%. Current BP 125/91 , P:81 10/12 Patient remains on ventilator overnight. Borderline low BP with MAP ranges 67-72. Afebrile. On no sedation. 10/13 Patient is on ventilator via trach, afebrile, WBC trending down. Patient was hypotensive yesterday responded to fluid resuscitation not on any pressors. 10/14: No acute events overnight. WBC count has normalized. Will start SBT as tolerated. CXR in am 10/15 No acute events overnight. Phosphorus low needs replacement. Otherwise neuro exam remains unchanged. remains on CPAP 10/16 Patient remains on ventilator via trach. On no sedation. Afebrile. 10/17 No acute events overnight. On ventilator via trach. Afebrile. 10/18 Tolerates CPAP, but unable to wean further. Otherwise no acute events overnight, remains afebrile 10/19 Patient is on ventilator via trach, UO 175ml in last 7 hrs. Afebrile. Tolerated CPAP x 6 hrs yesterday. 10/20 No acute events overnight. Tolerated CPAP for several hrs yesterday. Afebrile. UO better ( 1275ml in 24hrs). Given 1L NS total yesterday for decrease UO. 10/21 Patient is on ventilator via trach tolerated CPAP for most of day yesterday. Afebrile. Tolerating tube feeds. 10/22 No acute events overnight. Patient was on CPAP all day yesterday. Afebrile. 10/23 Patient tolerated all day yesterday. On ventilator via trach. Afebrile. 10/24 Patient remains on ventilator via trach. Afebrile. 10/25 Remains on vent on PSV 15/5. No acute events overnight. WBC slightly increased 10/26 PSV reduced to 10/5. Required AC/VC support yesterday as patient became tachypneic. No other changes 10/27 no acute changes overnight. Tolerating 10 over 5 PSV. WBC count has normalized, T piece today 10/28: No acute events overnight. Did not tolerate T piece trial yesterday. Tolerated CPAP. No fever 10/29: No acute events reported. Currently on 12 over 5 pressure support, reduced to 8/5. No fever 10/30 No acute events overnight. On CPAP with PS 10, PEEP: 5 and FIO2 35% overnight. Afebrile. 10/31: Remains on T piece since yesterday. 11/01: Was on T piece during day and C Pap at night. 11/01: Remains on T piece since yesterday morning. Objective - Vital Signs Date Time Temp Pulse Resp B/P Pulse Ox O2 Delivery O2 Flow Rate FiO2 11/03/15 10:00 74 11/03/15 08:10 100 T-piece 5.00 40 11/03/15 08:00 97.0 21 133/93 Intake and Output 11/02/15 11/02/15 11/03/15 08:00 16:00 00:00 Intake Total 813 ml 620 ml 230 ml Output Total 550 ml 560 ml 275 ml Balance 263 ml 60 ml -45 ml Result Diagram: 11/01/15 0556 11/01/15 0556 Other Results Laboratory Tests Test 10/31/15 05:03 White Blood Count 11.4 TH/MM3 Red Blood Count 4.34 MIL/MM3 Hemoglobin 11.6 GM/DL Hematocrit 35.9 % Mean Corpuscular Volume 82.7 FL Mean Corpuscular Hemoglobin 26.6 PG Mean Corpuscular Hemoglobin 32.2 % Concent Red Cell Distribution Width 18.4 % Platelet Count 212 TH/MM3 Mean Platelet Volume 10.2 FL Neutrophils (%) (Auto) 77.4 % Lymphocytes (%) (Auto) 15.7 % Monocytes (%) (Auto) 5.8 % Eosinophils (%) (Auto) 0.8 % Basophils (%) (Auto) 0.3 % Neutrophils # (Auto) 8.8 TH/MM3 Lymphocytes # (Auto) 1.8 TH/MM3 Monocytes # (Auto) 0.7 TH/MM3 Eosinophils # (Auto) 0.1 TH/MM3 Basophils # (Auto) 0.0 TH/MM3 CBC Comment DIFF FINAL Differential Comment Sodium Level 136 MEQ/L Potassium Level 3.8 MEQ/L Chloride Level 101 MEQ/L Carbon Dioxide Level 27.8 MEQ/L Anion Gap 7 MEQ/L Blood Urea Nitrogen 20 MG/DL Creatinine 0.43 MG/DL Estimat Glomerular Filtration 207 ML/MIN Rate Random Glucose 168 MG/DL Calcium Level 8.8 MG/DL Total Bilirubin 0.3 MG/DL Aspartate Amino Transf 17 U/L (AST/SGOT) Alanine Aminotransferase 40 U/L (ALT/SGPT) Alkaline Phosphatase 75 U/L Total Protein 6.6 GM/DL Albumin 2.9 GM/DL Imaging Last Impressions Chest X-Ray 10/27/15 0600 Signed Impressions: Service Date/Time: Tuesday, October 27, 2015 04:06 - CONCLUSION: Stable chest x-ray without an acute finding identified. Erlin Barajas MD Upper Extremity Ultrasound 10/13/15 0000 Signed Impressions: Service Date/Time: Tuesday, October 13, 2015 09:51 - CONCLUSION: 1. No evidence of deep venous thrombosis. John Anderson MD Abdomen X-Ray 10/12/15 0000 Signed Impressions: Service Date/Time: Monday, October 12, 2015 17:37 - CONCLUSION: 1. Gastrostomy tube in place 2. Unremarkable bowel gas pattern. Salazar Thurman MD Renal Ultrasound 10/07/15 0000 Signed Impressions: Service Date/Time: Wednesday, October 07, 2015 18:29 - CONCLUSION: 1. No acute findings. 3.6 cm left renal cyst. Putnam catheter in bladder. Amaury Ellsworth MD Tunnelled Chest Tube Removal 08/05/15 1100 Signed Impressions: Service Date/Time: Wednesday, August 05, 2015 11:00 - CONCLUSION: Uncomplicated chest tube removal. Blaine Jackson MD Chest Tube Change 07/31/15 0000 Signed Impressions: Service Date/Time: Friday, July 31, 2015 14:34 - CONCLUSION: Uncomplicated reposition of previously placed chest tube as above. Blaine Jackson MD Chest Tube Insertion 07/30/15 0000 Signed Impressions: Service Date/Time: July 14:50 - CONCLUSION: Uncomplicated chest tube placement as above. Blaine Jackson MD Catheter Change 07/27/15 0000 Signed Impressions: Service Date/Time: Monday, July 27, 2015 14:43 - CONCLUSION: Uncomplicated gastrostomy tube exchange as above. Blaine Jackson MD Chest CT 07/11/15 Signed Impressions: Service Date/Time: Saturday, July 11, 2015 09:49 - CONCLUSION: Scattered patchy densities significantly improved from previous study. Tiny anterior right basilar pneumothorax. Right-sided chest tube in good position. Néstor Matamoros MD Head CT 06/18/151902 Signed Impressions: Service Date/Time: June 19:31 - CONCLUSION: Diffuse atrophy unchanged. No acute intracranial findings. Kush Briscoe MD Abdomen/Pelvis CT 06/18/151902 Signed Impressions: Service Date/Time: June 19:36 - CONCLUSION: 1. Chronic nonspecific urinary bladder wall thickening. Bladder collapsed with Putnam catheter in place. 2. Chronic bilateral mid to lower lung zone groundglass opacity. 3. Nonobstructing left renal calculus. 4. Distended rectum. Kush Briscoe MD Objective Remarks GENERAL: 54-year-old male, cachectic, debilitated with contractures on T piece. HEENT: NC/AT. PERRL. OP without erythema or exudates NECK: No JVD. Supple. 8.0 Distal XLT trach in place CARDIAC: RRR. S1/S2. No S4. No murmurs, clicks gallops or rubs. LUNGS: B/L equal air entry. On T piece. ABDOMEN: S/NT/ND. Positive BS EXTREMITIES: 1+ dependent pedal edema. Contractures and deformities of fingers. Stage III coccyx/sacral decubitus ulcer NEUROLOGY: Significant contractures of bilateral lower extremity, upper extremities. Eyes open spontaneously. Temporal and facial muscle wasting, muscular atrophy all extremities. Procedures 07/26- PEG replacement 07/29- right pigtail catheter placement for new pneumothorax Date of Insertion: Oct 05, 2015 A/P Assessment and Plan Neuro/Psych: Parkinson's disease Cognitive disorder Chronic encephalopathy Dementia Depression Contractures On no sedation. CT head 06/18/15: diffuse atrophy unchanged. No acute intracranial findings Continue Sinemet 25/100 q8 via PEG, Seroquel 50 mg twice a day, olanzapine 5 mg a night, Klonopin 2 mg every 8 hours, Paxil 20 daily Continue Lortab when necessary pain and fentanyl patch 50 g every 3 days for pain management. Fentanyl bolus prn breakthrough pain or if needed for turning/ nursing care/etc. Resp: Acute on chronic respiratory failure Chronic trach #8 Shiley distal XLT Pneumonia, aspiration (ESBL Klebsiella and Pseudomonas pneumonia) Right pneumothorax status post pigtail catheter 2 (resolved) On T piece since 10/30 with CPAP at night. Tolerating T piece as tolerated starting 11/01 including night time. Pulmonary Dr. Restrepo following. On Prednisone 60mg daily Exchanged to 8 Distal XLT on 08/15 to facilitate suctioning, trach care. Bronchodilators ( DuoNeb) CXR 10/18, 10/26: No acute pulmonary infiltrates. Cardiac History of orthostasis History of CAD History dyslipidemia History of hypertension Continue Midodrine 5 mg BID. Monitor HR and BP keep MAP>65mmHg. GI: Chronic moderate protein energy malnutrition Dysphagia Status post PEG Internal hemorrhoids Gastroesophageal reflux disease - TF Jevity 1.5 @ 60ml/hr, on Reglan 5mg Q8 PRN for high residuals. - On Prevacid 30 mg per PEG tube daily for GERD - 10/11 KUB abdomen: PEG tube in place. Unremarkable bowel gas pattern. FEN/Renal: Nonobstructing left renal calculus - Monitor renal function, I/O's. electrolytes replacement per protocol. ID: Aspiration pneumonia Cele UTI 10/19 Sputum: Pseudomonas- likely colonized 10/19 urine cx: Yeast species 10/12 BC: NGTD 10/11 BC: NGTD 10/11 Urine cx: C. Tropicalis 10/11 Sputum: ESBL Klebsiella and Pseudomonas pneumonia 10/10 Urine: C. Tropicalis 09/21 Urine cx: Pseudomonas ? colonized 09/19 Sputum cx: Pseudomonas, Kleb pneumonia ESBL pos Candiduria (cele tropicalis urine cx 08/17) ESBL positive Klebsiella/Pseudomonas pneumonia Stenotrophomonas in sputum 08/17 MRSA colonization Sepsis UTI Klebsiella ESBL positive (has been treated) Off abx s/p ( Merrem finished 10 day course 10/23) monitor for signs of infections ( Fever, WBC) ID service is following as needed- Dr. Enoc Moss. CXR 10/26 no acute changes. Endo: On SSI ( medium) with accuchecks Q6. Heme Normocytic Anemia - Monitor CBC MSK Bilateral lower extremity Contractures Stage III sacral decubitus present on admission - Wound care and PT on case Prophylaxis - GI - Prevacid - DVT - SCDs/ Lovenox. ACCESS: PIVs Discharge planning. Consult and transfer to hospitalist service for medical management. Level 2 Jules Moss MD Nov 03, 2015 11:19
--- NOTE | 2015-11-03 13:20 | HHI.HCPN ---
Reason for visit a. To assist with evaluation and management of symptoms including: secretions, dyspnea. b. To assist medical decision maker(s) with: better understanding of current medical conditions; weighing benefits/burdens of medical treatment options; making medical treatment decisions. . (ALOK JONES) Subjective/Interval History Patient seen and examined in ICU. No family at bedside .Also present Sulma Taylor LCSW. Patient on oxygen via t-piece. Eyes closed, does not open eyes to voice, does not follow commands. Afebrile. No new labs or imaging. Nursing pain level scores are "2-3." No recent PRN Morphine or [place] given. Patient does not appear painful during my visit. From Dr. Pickard's initial palliative care consultation of 07/15/15... This is the 5th [facility] care [facility] admission in the last 10 months for this unfortunate 54 y/o male retirement long term resident with advanced Parkinson's disease ; dementia; tracheostomy and PEG tube who was sent to the ED from his facility on 06/18/15 because of fevers, labored breathing, worsening mental status; and purulent looking sputum at the trach site. The patient has had multiple hospitalizations which included stays in the intensive care unit for various infections. He had a urinary tract infection with multidrug resistant ESBL on 02/19/15. He was last MRSA positive on . [facility] notes from the facility indicate that his current baseline is: * Bedbound status * Unable to communicate * NPO -- on tube feedings at 85 cc /hr * Dependent for all ADLs In the emergency Department, initial vital signs were as follows > temperature 100.9; pulse 98; respiratory rate 38; blood pressure 104/61; pulse oximetry 99% on room air via trach collar. Initial physical examination the emergency department revealed the following > patient was frail and chronically ill-appearing. Skin showed no obvious wounds. Head, eyes, ENT, neck, cardiovascular, respiratory, gastrointestinal exams were unremarkable. Neurologically, the patient was unable to answer questions or respond or follow commands. Initial diagnostic testing revealed the following: * CBC showed WBC 16.4; hemoglobin 11.3; platelet count 176 * Coagulation profile showed PT 11.4; INR 1.1; PTT 29.4 * Chemistry profile showed sodium 141; potassium 4.5; chloride 105; CO2 27.4; anion gap 9; BUN 21; creatinine 0.85; estimated GFR 95; glucose 116; calcium 9.6 * Liver function tests showed total bilirubin 0.6; AST 23; ALT 38; alkaline phosphatase 59; total protein 7.5; albumen 3.2 * Urinalysis was remarkable for large occult blood; large leukocyte esterase; few bacteria; few yeast with hyphae; few budding yeast. * Arterial blood gases on trach mask at 40% showed pH 7.53; PCO2 33; PaO2 108; bicarbonate 27; base excess 4.2 * Chest x-ray showed no acute cardiopulmonary disease * Head CT showed diffuse atrophy unchanged from prior exam. * CT of the abdomen and pelvis showed chronic nonspecific urinary bladder wall thickening; bladder collapsed with Valdez catheter in place; chronic bilateral mid to lower lung zone groundglass opacity; nonobstructing left renal calculus; distended rectum. * The emergency room doctor diagnosed severe sepsis. The patient was given 2 L of IV fluid and broad-spectrum antibiotic-coated verge in the emergency department. Cultures were obtained. Valdez catheter was changed. As the patient was markedly tachypneic with increased work of breathing and use of accessory muscles during his stay in the emergency department. He was placed on CPAP and subsequently intubated and placed on mechanical ventilation. Critical care was consulted and the patient was admitted to the intensive care unit. Further examination revealed a stage II 6 x 2 cm sacral wound. Urine culture on admission grew out Heena of 2 different species. Sputum culture grew out Klebsiella pneumonia ESBL positive as well as pseudomonas. Blood culture grew out coag-negative staph and staph epidermidis. Both infectious disease and pulmonology were consulted. The patient slowly improved, was extubated, and critical care signed off on . However, on 07/06 the patient had to be placed back on the ventilator. A right sided pneumothorax was noted and patient underwent chest tube placement by interventional radiology. Pneumothorax has appeared to resolve on most recent chest x-ray. Sputum, blood, and urine cultures from 07/07/15 are all negative. White blood count is currently down to 7. Hemoglobin is 10.6. Albumen is suboptimal at 3.0. Renal function is normal. He is currently off anti-biotics. Current pain regimen includes the following: * Fentanyl patch; 50 g per hour * Morphine sulfate 5 mg sublingually or via the tube every 4 hours when necessary (he has been using 1-2 doses of this per day) The patient was tolerating CPAP earlier today and has since been removed from the ventilator and is on a T-piece at 40% FI02. At time of my visit, eyes are open. He intermittently tracks. He cannot follow commands and makes no attempt to interact. . Family/friend interactions Called daughter Radha to provide update. She indicates she and her mother my be coming into town on Monday, I will attempt to meet with her if/when she arrives. . (ALOK JONES) Advance Directives Living Will: Never completed Health Care Surrogate: Copy in medical record Durable Power of Civil Structural Designer: Never completed (ALOK JONES) Advance Directive Specifics Date completed: Patient visited Scott Mack, Civil Structural Designer in March and again in November 2014. The patient was encouraged to complete Advance directive documents but never did them. Dr. Pickard personally called Mr. Mack ([phone]) to check for advance directives. Health Care Surrogate(s): The patient completed a health care surrogate document dated 09/02/14 desigating his friend Bola Nolasco as surrogate. Mr. Nolasco was not aware of this and has declined serving in that capacity. The patient has an adult daughter -- Radha Foreman who is willing to serve as health care proxy decision maker. Patient's mother, Teresa is aware. Significant change in goals: NO CODE. Desires continued aggressive care short of NO CODE. Daughter may come Monday and pal care will meet with her. . (ALOK JONES) Objective Vital Signs Date Time Temp Pulse Resp B/P Pulse Ox O2 Delivery O2 Flow Rate FiO2 11/03/15 12:00 72 11/03/15 12:00 96.9 72 19 118/83 99 11/03/15 12:00 100 T-Piece 35 11/03/15 10:00 74 11/03/15 08:10 100 T-piece 5.00 40 11/03/15 08:00 100 T-Piece 35 11/03/15 08:00 97.0 75 21 133/93 100 11/03/15 08:00 75 11/03/15 06:00 69 11/03/15 04:00 96.9 71 28 149/94 100 11/03/15 04:00 100 T-Piece 40 11/03/15 04:00 71 11/03/15 02:00 68 11/03/15 00:00 76 11/03/15 00:00 100 T-Piece 40 11/03/15 00:00 97.3 76 21 134/90 100 11/02/15 22:00 80 11/02/15 20:24 100 T-piece 40 11/02/15 20:00 100 T-Piece 40 11/02/15 20:00 98.3 79 26 135/94 100 11/02/15 20:00 79 11/02/15 18:00 82 11/02/15 16:00 88 11/02/15 16:00 100 Mechanical Ventilator 40 11/02/15 16:00 35 11/02/15 16:00 97.8 88 28 118/83 100 11/02/15 14:00 89 Intake & Output 11/03/15 11/03/15 07:00 19:00 Intake Total 663 ml Output Total 675 ml Balance -12 ml Intake Oral 0 ml IV Total 0 ml Tube Feeding 243 ml Other 420 ml Output Urine Total 675 ml # Bowel Movements 2 Physical Exam CONSTITUTIONAL/GENERAL: This is a thin, pale, contracted, chronically ill appearing [facility]. Unresponsive. TUBES/LINES/DRAINS: Trach, valdez cath, PIV left, PEG tube; scd's SKIN: No jaundice, rashes, or lesions. Sacral wound, not visualized today. NECK: Tracheostomy to t-piece. CARDIOVASCULAR: Regular rate and rhythm without murmurs, gallops, or rubs. No JVD. Peripheral pulses symmetric. RESPIRATORY/CHEST: Scattered course breath sounds. Breath sounds equal bilaterally and diminished at bases. GASTROINTESTINAL: Abdomen soft, non-tender, nondistended. No guarding. Bowel sounds present. GENITOURINARY: Without palpable bladder distension. catheter in place. MUSCULOSKELETAL: Contractures noted. No mottling. NEUROLOGICAL: Does not open eyes to voice or command. Unresponsive. Unable to follow even simple commands. No spontaneous movements seen. PSYCHIATRIC: Unresponsive. . (ALOK JONES) Diagnostic Tests Laboratory Laboratory Tests Test 11/01/15 05:56 White Blood Count 11.2 TH/MM3 (4.0-11.0) Red Blood Count 4.48 MIL/MM3 (4.50-5.90) Hemoglobin 12.2 GM/DL (13.0-17.0) Hematocrit 37.3 % (39.0-51.0) Mean Corpuscular Volume 83.2 FL (80.0-100.0) Mean Corpuscular Hemoglobin 27.2 PG (27.0-34.0) Mean Corpuscular Hemoglobin 32.7 % Concent (32.0-36.0) Red Cell Distribution Width 18.4 % (11.6-17.2) Platelet Count 165 TH/MM3 (150-450) Mean Platelet Volume 10.1 FL (7.0-11.0) Neutrophils (%) (Auto) 77.3 % (16.0-70.0) Lymphocytes (%) (Auto) 16.2 % (9.0-44.0) Monocytes (%) (Auto) 5.6 % (0.0-8.0) Eosinophils (%) (Auto) 0.7 % (0.0-4.0) Basophils (%) (Auto) 0.2 % (0.0-2.0) Neutrophils # (Auto) 8.6 TH/MM3 (1.8-7.7) Lymphocytes # (Auto) 1.8 TH/MM3 (1.0-4.8) Monocytes # (Auto) 0.6 TH/MM3 (0-0.9) Eosinophils # (Auto) 0.1 TH/MM3 (0-0.4) Basophils # (Auto) 0.0 TH/MM3 (0-0.2) CBC Comment DIFF FINAL Differential Comment Sodium Level 139 MEQ/L (136-145) Potassium Level 3.9 MEQ/L (3.5-5.1) Chloride Level 100 MEQ/L (98-107) Carbon Dioxide Level 35.4 MEQ/L (21.0-32.0) Anion Gap 4 MEQ/L (5-15) Blood Urea Nitrogen 23 MG/DL (7-18) Creatinine 0.47 MG/DL (0.60-1.30) Estimat Glomerular Filtration 187 ML/MIN Rate (>89) Random Glucose 114 MG/DL (74-106) Calcium Level 9.3 MG/DL (8.5-10.1) Phosphorus Level 3.1 MG/DL (2.5-4.9) Magnesium Level 2.0 MG/DL (1.5-2.5) (ALOK JONES [facility] Result Diagram: 11/01/15 0556 11/01/15 0556 Imaging Last Impressions Chest X-Ray 10/27/15 0600 Signed Impressions: Service Date/Time: Tuesday, October 27, 2015 04:06 - CONCLUSION: Stable chest x-ray without an acute finding identified. Erlin Barajas MD Upper Extremity Ultrasound 10/13/15 0000 Signed Impressions: Service Date/Time: Tuesday, October 13, 2015 09:51 - CONCLUSION: 1. No evidence of deep venous thrombosis. John Anderson MD Abdomen X-Ray 10/12/15 0000 Signed Impressions: Service Date/Time: Monday, October 12, 2015 17:37 - CONCLUSION: 1. Gastrostomy tube in place 2. Unremarkable bowel gas pattern. Salazar Thurman MD Renal Ultrasound 10/07/15 0000 Signed Impressions: Service Date/Time: Wednesday, October 07, 2015 18:29 - CONCLUSION: 1. No acute findings. 3.6 cm left renal cyst. Valdez catheter in bladder. Amaury Ellsworth MD Tunnelled Chest Tube Removal 08/05/15 1100 Signed Impressions: Service Date/Time: Wednesday, August 05, 2015 11:00 - CONCLUSION: Uncomplicated chest tube removal. Blaine Jackson MD Chest Tube Change 07/31/15 0000 Signed Impressions: Service Date/Time: Friday, July 31, 2015 14:34 - CONCLUSION: Uncomplicated reposition of previously placed chest tube as above. Blaine Jackson MD Chest Tube Insertion 07/30/15 0000 Signed Impressions: Service Date/Time: July 14:50 - CONCLUSION: Uncomplicated chest tube placement as above. Blaine Jackson MD Catheter Change 07/27/15 0000 Signed Impressions: Service Date/Time: Monday, July 27, 2015 14:43 - CONCLUSION: Uncomplicated gastrostomy tube exchange as above. Blaine Jackson MD Chest CT 07/11/15 0000 Signed Impressions: Service Date/Time: Saturday, July 11, 2015 09:49 - CONCLUSION: Scattered patchy densities significantly improved from previous study. Tiny anterior right basilar pneumothorax. Right-sided chest tube in good position. Néstor Matamoros MD Head CT 06/18/151902 Signed Impressions: Service Date/Time: June 19:31 - CONCLUSION: Diffuse atrophy unchanged. No acute intracranial findings. Kush Briscoe MD Abdomen/Pelvis CT 06/18/151902 Signed Impressions: Service Date/Time: , June 18, 2015 19:36 - CONCLUSION: 1. Chronic nonspecific urinary bladder wall thickening. Bladder collapsed with Valdez catheter in place. 2. Chronic bilateral mid to lower lung zone groundglass opacity. 3. Nonobstructing left renal calculus. 4. Distended rectum. Kush Briscoe MD . Procedures * Mechanical ventilation * Chest tube placement on right 07/07/15 * Chest tube removal 07/17/15 . (ALOK JONESP-C) Assessment and Plan Disease Oriented Problem List: (1) Acute respiratory failure Comment: 10/13/15 - Halicat for hypotension and tube feeding coming from trach. - Back on mech vent in ICU. . (2) Chronic respiratory failure (3) Septic shock (4) Pneumonia Comment: Aspiration. Repeat cultures pending. . (5) UTI (urinary tract infection) Comment: Repeat culture pending. . (6) Parkinson disease (7) Moderate malnutrition Symptom Scale: (1) Pain 0-10 Scale: Unable to quantify Comment: Sources of pain might include wound, prolonged bedbound status, contractures, restraints, valdez, vascular access catheters. Appears comfortable on current regimen. ,l (2) Dyspnea 0-10 Scale: Unable to quantify Comment: On t-piece. . (3) Malnutrition 0-10 Scale: Unable to quantify Comment: Tolerating tube feedings. . (4) Encephalopathy 0-10 Scale: Unable to quantify Comment: Remains unresponsive. 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 Severe dementia. Daughter, mother, and brother are involved. Spiritual: Taoism. Has been a member for the [facility] [employer] and members have provided both community support and spiritual support in the past. Legal: No advance directives. Daughter (Radha Foreman) is legal proxy and lives 4 hours away. She can be quite difficult to contact by phone. Ethical issues impacting care: None. . Important Contacts * Radha Foreman (daughter and proxy) [phone] * Teresa Perea (mother -- lives in [place]) [phone] . Prognosis Patient has end stage Parkinson's with end stage dementia. He is a retirement NH resident and has required multiple hospitalizations for sepsis. He is a chronic trach/PEG tube patient with contractures and skin breakdown. Should family continue to want aggressive care, he will continue to go back and forth from facility to hospital until such time that we are no longer able to overcome the sepsis. Patient is hospice eligible whenever family is ready to transition to "comfort measures only." . Code Status: No Code Plan * Decision making: Patient is incapacitated and will not regain capacity. There is no designated health care surrogate. Daughter, Radha Foreman, is legal proxy under [place] statutes but can be hard to contact at times. * NO CODE * Goals aggressive short of NO CODE at this time. Spoke with Radha hunter ( HCS) to provide update, she indicates she and her mother may be coming to visit on Monday11/06/15. Palliative care will meet with family if they arrive. * Pain: Sources of pain are unclear as patient in non communicative, but would include prolonged bedbound status; tubes and lines; contractures; wound; etc. Current regimen appears to adequate . No further recommendations at this time. * Dyspnea: Dyspnea due to aspiration pneumonia. Has previously been challenging to get off vent. * Malnutrition: Tolerating tube feeds, but albumin remains low. * Secretions: PRN Levsin available. Remains high risk for aspiration due to secretions and tube feeding. * Palliative care will try and meet with Radha (proxy) in person when she next comes to visit. She continues to insist on aggressive goals in spite of the incredibly bleak prognosis. . . (ALOK JONES) Attestation To help prompt me to consider important information that might be impacting today's encounter and assessment, information from prior notes written by myself or my colleagues may have been "brought forward" into today's note. My signature on this note, however, is an attestation that I personally performed the exam, history, and/or decision-making noted today, and, unless otherwise indicated, the interactions with patient, family, and staff as well as the review of records all occurred today. I also attest that the listed assessment and stated plan reflect my best clinical judgment today based on the combination of historical information, prior notes, and today's exam/ interactions. When time spent is documented, it refers only to time spent today by the signer, or if indicated, combined time spent today by collaborating physician/nurse practitioner. (ALOK JONES) Collaborating MD Comments Chart reviewed. Patient discussed with palliative care ERP IMPLEMENTATION CONSULTANT. Above note reviewed and I concur. . (Pascual Pickard MD) ALOK JONES Nov 03, 2015 13:19 Pascual Pickard MD Dec 30, 2015 14:06
--- NOTE | 2015-11-03 18:45 | HHI.PR ---
Subjective Remarks 54 YOWM with ChRF,Trach, multiple uti No fever Gets anxious. Mod amount of trach secretions. Tolerating T-Bar No new complaint Tolerates TF Objective Vital Signs Vital Signs Date Time Temp Pulse Resp B/P Pulse Ox O2 Delivery O2 Flow Rate FiO2 11/03/15 16:00 81 11/03/15 16:00 100 T-Piece 35 11/03/15 16:00 96.7 81 21 131/88 100 11/03/15 14:00 77 11/03/15 12:00 72 11/03/15 12:00 96.9 72 19 118/83 99 11/03/15 12:00 100 T-Piece 35 11/03/15 10:00 74 11/03/15 08:10 100 T-piece 5.00 40 11/03/15 08:00 100 T-Piece 35 11/03/15 08:00 97.0 75 21 133/93 100 11/03/15 08:00 75 11/03/15 06:00 69 11/03/15 04:00 96.9 71 28 149/94 100 11/03/15 04:00 100 T-Piece 40 11/03/15 04:00 71 11/03/15 02:00 68 11/03/15 00:00 76 11/03/15 00:00 100 T-Piece 40 11/03/15 00:00 97.3 76 21 134/90 100 11/02/15 22:00 80 11/02/15 20:24 100 T-piece 40 11/02/15 20:00 100 T-Piece 40 11/02/15 20:00 98.3 79 26 135/94 100 11/02/15 20:00 79 I/O 11/02/15 11/02/15 11/02/15 11/03/15 11/03/15 11/03/15 07:00 15:00 23:00 07:00 15:00 23:00 Intake Total 813 ml 620 ml 230 ml 433 ml 363 ml Output Total 550 ml 560 ml 275 ml 400 ml 55 ml Balance 263 ml 60 ml -45 ml 33 ml 308 ml Intake Oral 0 ml 0 ml 0 ml 0 ml IV Total 0 ml 0 ml 0 ml 0 ml Tube Feeding 653 ml 500 ml 30 ml 213 ml 263 ml Tube Irrigant 160 ml Other 120 ml 200 ml 220 ml 100 ml Output Urine Total 550 ml 500 ml 275 ml 400 ml 55 ml Emesis 60 ml # Bowel Movements 2 3 1 1 2 Result Diagram: 11/01/15 0556 11/01/15 0556 Objective Remarks GENERAL: MBMN male on Vent. SKIN: Warm and dry. HEAD: Normocephalic. EYES: No scleral icterus. No injection or drainage. NECK: Supple, trachea midline. No JVD or lymphadenopathy. has trach CARDIOVASCULAR: Regular rate and rhythm without murmurs, gallops, or rubs. RESPIRATORY: Breath sounds equal bilaterally. No accessory muscle use. GASTROINTESTINAL: Abdomen soft, non-tender, nondistended. PEG tube in place MUSCULOSKELETAL: No cyanosis, or edema. BACK: Nontender without obvious deformity. No CVA tenderness. A/P Assessment and Plan VDRF S/P Trach Parkinson's diasease Dementia Aspiration PLAN: TF Cont Trach collar Trach care Cont Abx CPAP prn Severiano Ag MD Nov 03, 2015 18:45
[2015-11-03] MEDS: OLANZapine 5 MG TAB GT SCH (20:47)
[2015-11-03] MEDS: ENOXAPARIN SODIUM 40 MG/0.4 ML SYRINGE SQ SCH (20:48)
[2015-11-04] VITALS (14 sets, daily range): BP systolic 92–124; BP diastolic 62–90; PULSE 77–85; RESP 16–24; TEMP 97.2–98.1; O2SAT 100
[2015-11-04] MEDS: clonazePAM 1 MG TAB PO SCH ×3 (05:18→21:08)
[2015-11-04] MEDS: CARBIDOPA/LEVODOPA 25 MG/100 MG TAB GT SCH ×3 (05:18→21:07)
[2015-11-04] MEDS: INSULIN NovoLIN REGULAR SUPPLEMENTAL SCALE SQ SCH ×3 (05:18→18:00)
[2015-11-04] MEDS: PARoxetine HCL 20 MG TAB G-TUBE SCH (08:49)
[2015-11-04] MEDS: LACTOBACILLUS ACIDOPHILUS TAB PO SCH ×3 (08:49→18:22)
[2015-11-04] MEDS: GABAPENTIN 300 MG CAP G-TUBE SCH ×2 (08:49→21:08)
[2015-11-04] MEDS: QUEtiapine FUMARATE 25 MG TAB G-TUBE SCH ×2 (08:49→21:08)
[2015-11-04] MEDS: CHLORHEXIDINE 0.12% (ORAL KIT) 15 ML CUP MT SCH ×2 (08:49→21:07)
[2015-11-04] MEDS: ARTIFICIAL TEARS OPTH SOLN 15 ML BTL EACH EYE SCH ×3 (08:49→18:22)
[2015-11-04] MEDS: SODIUM CHLORIDE 0.9% FLUSH 5 ML FLUSH IVF SCH ×2 (08:50→21:08)
[2015-11-04] MEDS: COLLAGENASE OINT 30 GM TUBE TOP SCH (08:50)
[2015-11-04] MEDS: LANSOPRAZOLE SOLUTAB 30 MG TAB NG SCH (08:50)
[2015-11-04] MEDS: predniSONE 20 MG TAB PO SCH (08:50)
[2015-11-04] MEDS: MIDODRINE 5 MG TAB G-TUBE SCH ×2 (08:50→21:07)
[2015-11-04] MEDS: ACETAMINOPHEN/HYDROcodone 325 MG/5 MG TAB PO PRN (12:34)
--- NOTE | 2015-11-04 13:36 | HHI.PR ---
Subjective Remarks Chronically ill patient, with one contraction Getting cleaned by the nurse, he doesn't answer question or follow commands No fever or chills, care transferred from intensive care unit Chronically ill with lengthy stay Objective Vitals Vital Signs Date Time Temp Pulse Resp B/P Pulse Ox O2 Delivery O2 Flow Rate FiO2 11/04/15 12:00 100 T-Piece 28 11/04/15 08:07 100 T-piece 6.00 28 11/04/15 08:00 100 T-Piece 28 11/04/15 06:00 82 11/04/15 04:08 100 T-piece 6.00 28 11/04/15 04:00 97.5 77 16 109/76 100 11/04/15 04:00 77 11/04/15 04:00 100 T-Piece 35 11/04/15 02:00 85 11/04/15 00:00 80 11/04/15 00:00 97.2 80 18 117/85 100 11/04/15 00:00 100 T-Piece 35 11/03/15 22:00 91 11/03/15 20:21 100 T-piece 6.00 35 11/03/15 20:00 97.9 78 22 157/99 100 11/03/15 20:00 100 T-Piece 35 11/03/15 20:00 78 11/03/15 18:00 74 11/03/15 16:00 81 11/03/15 16:00 100 T-Piece 35 11/03/15 16:00 96.7 81 21 131/88 100 11/03/15 14:00 77 I/O 11/03/15 11/03/15 11/03/15 11/04/15 11/04/15 11/04/15 07:00 15:00 23:00 07:00 15:00 23:00 Intake Total 433 ml 363 ml 566 ml 433 ml Output Total 400 ml 55 ml 475 ml 300 ml 0 ml Balance 33 ml 308 ml 91 ml 133 ml 0 ml Intake Oral 0 ml 0 ml 0 ml 0 ml IV Total 0 ml 0 ml 0 ml 0 ml Tube Feeding 213 ml 263 ml 326 ml 313 ml Other 220 ml 100 ml 240 ml 120 ml Output Urine Total 400 ml 55 ml 475 ml 300 ml Tube Feeding Residual Discard 0 ml # Bowel Movements 1 2 1 1 Result Diagram: 11/01/15 0556 11/01/15 0556 Objective Remarks GENERAL: Cachectic, contracted patient, chronic ill-looking, in no apparent distress. CARDIOVASCULAR: Regular rate and rhythm without murmurs, gallops, or rubs. RESPIRATORY: Fair air entry, no wheezes GASTROINTESTINAL: Abdomen soft, non-tender, nondistended. Normal active bowel sounds PEG tube in place MUSCULOSKELETAL: Lower extremity in crossover contraction , positive pedal pulses,. NEURO: Open eyes doesn't follow commands, spontaneous movement of upper or lower extremity, doesn't answer question Procedures 07/26- PEG replacement 07/29- right pigtail catheter placement for new pneumothorax Date of Insertion: Oct 05, 2015 A/P Problem List: (1) Sepsis due to urinary tract infection Status: Resolved (2) Acute respiratory failure Status: Resolved (3) Chronic respiratory failure Status: Chronic (4) Parkinson disease Status: Chronic (5) UTI (urinary tract infection) Status: Acute (6) Encephalopathy Status: Resolved Assessment and Plan Daily update & Mngmt Discussed with the nurse, no acute issue, continue current care Record and hospital course reviewed including lab in previous intensive care notes General A/P: 55 years old male with Parkinson's disease Cognitive disorder Chronic encephalopathy Dementia Depression Contractures On no sedation. CT head 06/18/15: diffuse atrophy unchanged. No acute intracranial findings Continue Sinemet 25/100 q8 via PEG, Seroquel 50 mg twice a day, olanzapine 5 mg a night, Klonopin 2 mg every 8 hours, Paxil 20 daily Continue Lortab when necessary pain and fentanyl patch 50 g every 3 days for pain management. Fentanyl bolus prn breakthrough pain or if needed for turning/ nursing care/etc. Acute on chronic respiratory failure Chronic trach #8 Shiley distal XLT Pneumonia, aspiration (ESBL Klebsiella and Pseudomonas pneumonia) Right pneumothorax status post pigtail catheter 2 (resolved) On T piece since 10/30 with CPAP at night. Tolerating T piece as tolerated starting 11/[address] time. Pulmonary Dr. Restrepo following. On Prednisone 60mg daily Exchanged to 8 Distal XLT on 08/15 to facilitate suctioning, trach care. Bronchodilators ( DuoNeb) CXR 10/18, 10/26: No acute pulmonary infiltrates. History of orthostasis History of CAD History dyslipidemia History of hypertension Continue Midodrine 5 mg BID. Monitor HR and BP keep MAP>65mmHg. Chronic moderate protein energy malnutrition Dysphagia Status post PEG Internal hemorrhoids Gastroesophageal reflux disease - TF Jevity 1.5 @ 60ml/hr, on Reglan 5mg Q8 PRN for high residuals. - On Prevacid 30 mg per PEG tube daily for GERD - 10/11 KUB abdomen: PEG tube in place. Unremarkable bowel gas pattern. FEN/Renal: Nonobstructing left renal calculus - Monitor renal function, I/O's. electrolytes replacement per protocol. Aspiration pneumonia Heena UTI 10/19 Sputum: Pseudomonas- likely colonized 10/19 urine cx: Yeast species 10/12 BC: NGTD 10/11 BC: NGTD 10/11 Urine cx: C. Tropicalis 10/11 Sputum: ESBL Klebsiella and Pseudomonas pneumonia 10/10 Urine: C. Tropicalis 09/21 Urine cx: Pseudomonas ? colonized 09/19 Sputum cx: Pseudomonas, Kleb pneumonia ESBL pos Candiduria (heena tropicalis urine cx 08/17) ESBL positive Klebsiella/Pseudomonas pneumonia Stenotrophomonas in sputum 08/17 MRSA colonization Sepsis UTI Klebsiella ESBL positive (has been treated) Off abx s/p ( Merrem finished 10 day course 10/23) monitor for signs of infections ( Fever, WBC) ID service is following as needed- Dr. Enoc Moss. CXR 10/26 no acute changes. Normocytic Anemia - Monitor CBC Bilateral lower extremity Contractures Stage III sacral decubitus present on admission - Wound care and PT on case Prophylaxis - GI - Prevacid - DVT - SCDs/ Lovenox. Discharge Planning to LTC when cleared by pulmonary Jb Ervin MD Nov 04, 2015 13:36
[2015-11-04] MEDS: ONDANSETRON HCL 4 MG/2 ML VIAL IV PRN (13:59)
--- NOTE | 2015-11-04 18:59 | HHI.PR ---
Subjective Remarks 54 YOWM with ChRF,Trach, multiple uti No fever Gets anxious. Mod amount of trach secretions. Tolerating T-Bar Tolerates TF had Nausea, better with Zofran. Objective Vital Signs Vital Signs Date Time Temp Pulse Resp B/P Pulse Ox O2 Delivery O2 Flow Rate FiO2 11/04/15 18:00 79 11/04/15 16:00 97.7 80 20 92/62 100 11/04/15 16:00 100 T-Piece 28 11/04/15 16:00 80 11/04/15 14:00 83 11/04/15 12:00 97.9 81 18 121/88 100 11/04/15 12:00 100 T-Piece 28 11/04/15 08:07 100 T-piece 6.00 28 11/04/15 08:00 100 T-Piece 28 11/04/15 08:00 97.9 83 24 124/90 100 11/04/15 06:00 82 11/04/15 04:08 100 T-piece 6.00 28 11/04/15 04:00 97.5 77 16 109/76 100 11/04/15 04:00 77 11/04/15 04:00 100 T-Piece 35 11/04/15 02:00 85 11/04/15 00:00 80 11/04/15 00:00 97.2 80 18 117/85 100 11/04/15 00:00 100 T-Piece 35 11/03/15 22:00 91 11/03/15 20:21 100 T-piece 6.00 35 11/03/15 20:00 97.9 78 22 157/99 100 11/03/15 20:00 100 T-Piece 35 11/03/15 20:00 78 I/O 11/03/15 11/03/15 11/03/15 11/04/15 11/04/15 11/04/15 07:00 15:00 23:00 07:00 15:00 23:00 Intake Total 433 ml 363 ml 566 ml 433 ml 521 ml Output Total 400 ml 55 ml 475 ml 300 ml 350 ml 0 ml Balance 33 ml 308 ml 91 ml 133 ml 171 ml 0 ml Intake Oral 0 ml 0 ml 0 ml 0 ml 0 ml IV Total 0 ml 0 ml 0 ml 0 ml 0 ml Tube Feeding 213 ml 263 ml 326 ml 313 ml 401 ml Other 220 ml 100 ml 240 ml 120 ml 120 ml Output Urine Total 400 ml 55 ml 475 ml 300 ml 350 ml Tube Feeding Residual Discard 0 ml 0 ml # Bowel Movements 1 2 1 1 3 Result Diagram: 11/01/1555511/01/15555 Objective Remarks GENERAL: MBMN male on Vent. SKIN: Warm and dry. HEAD: Normocephalic. EYES: No scleral icterus. No injection or drainage. NECK: Supple, trachea midline. No JVD or lymphadenopathy. has trach CARDIOVASCULAR: Regular rate and rhythm without murmurs, gallops, or rubs. RESPIRATORY: Breath sounds equal bilaterally. No accessory muscle use. GASTROINTESTINAL: Abdomen soft, non-tender, nondistended. PEG tube in place MUSCULOSKELETAL: No cyanosis, or edema. BACK: Nontender without obvious deformity. No CVA tenderness. A/P Assessment and Plan VDRF S/P Trach Parkinson's diasease Dementia Aspiration PLAN: TF Cont Trach collar Trach care Cont Abx CPAP prn Zofran prn Nausea Severiano Ag MD Nov 04, 2015 18:59
[2015-11-04] MEDS: OLANZapine 5 MG TAB GT SCH (21:07)
[2015-11-04] MEDS: ENOXAPARIN SODIUM 40 MG/0.4 ML SYRINGE SQ SCH (21:08)
[2015-11-05] VITALS (14 sets, daily range): BP systolic 101–127; BP diastolic 72–90; PULSE 69–85; RESP 16–20; TEMP 97.2–98.8; O2SAT 95–100
[2015-11-05] MEDS: CARBIDOPA/LEVODOPA 25 MG/100 MG TAB GT SCH ×3 (05:39→22:48)
[2015-11-05] MEDS: clonazePAM 1 MG TAB PO SCH ×3 (05:39→22:48)
[2015-11-05] MEDS: INSULIN NovoLIN REGULAR SUPPLEMENTAL SCALE SQ SCH ×5 (05:42→23:51)
[2015-11-05] MEDS: REMOVE OLD PATCH TD SCH (08:00)
[2015-11-05] MEDS: CHLORHEXIDINE 0.12% (ORAL KIT) 15 ML CUP MT SCH ×2 (08:00→20:00)
[2015-11-05] MEDS: ARTIFICIAL TEARS OPTH SOLN 15 ML BTL EACH EYE SCH ×3 (10:13→17:29)
[2015-11-05] MEDS: GABAPENTIN 300 MG CAP G-TUBE SCH ×2 (10:14→22:48)
[2015-11-05] MEDS: PARoxetine HCL 20 MG TAB G-TUBE SCH (10:14)
[2015-11-05] MEDS: SODIUM CHLORIDE 0.9% FLUSH 5 ML FLUSH IVF SCH ×2 (10:14→22:49)
[2015-11-05] MEDS: LACTOBACILLUS ACIDOPHILUS TAB PO SCH ×3 (10:14→17:29)
[2015-11-05] MEDS: predniSONE 20 MG TAB PO SCH (10:14)
[2015-11-05] MEDS: LANSOPRAZOLE SOLUTAB 30 MG TAB NG SCH (10:14)
[2015-11-05] MEDS: MIDODRINE 5 MG TAB G-TUBE SCH ×2 (10:14→21:00)
[2015-11-05] MEDS: QUEtiapine FUMARATE 25 MG TAB G-TUBE SCH ×2 (10:14→22:48)
[2015-11-05] MEDS: COLLAGENASE OINT 30 GM TUBE TOP SCH (10:15)
--- NOTE | 2015-11-05 13:06 | HHI.PR ---
Subjective Remarks Patient sleeping with woke up to sternal rub He is on T-tube managed by pulmonary No fever or chills Objective Vitals Vital Signs Date Time Temp Pulse Resp B/P Pulse Ox O2 Delivery O2 Flow Rate FiO2 11/05/15 12:00 71 11/05/15 10:00 80 11/05/15 08:00 98 T-Piece 5.00 28 11/05/15 08:00 73 11/05/15 08:00 97.2 74 18 127/90 98 11/05/15 07:37 98 T-piece 11/05/15 06:00 77 11/05/15 04:00 97.3 75 20 101/72 100 11/05/15 04:00 75 11/05/15 04:00 100 T-Piece 11/05/15 02:00 70 11/05/15 00:00 98.1 79 17 117/87 98 11/05/15 00:00 79 11/05/15 00:00 100 T-Piece 11/04/15 22:00 82 11/04/15 20:20 100 T-piece 28 11/04/15 20:00 98.1 79 21 117/82 100 11/04/15 20:00 79 11/04/15 20:00 100 T-Piece 11/04/15 18:00 79 11/04/15 16:00 97.7 80 20 92/62 100 11/04/15 16:00 100 T-Piece 11/04/15 16:00 80 11/04/15 14:00 83 I/O 11/04/15 11/04/15 11/04/15 11/05/15 11/05/15 11/05/15 07:00 15:00 23:00 07:00 15:00 23:00 Intake Total 433 ml 521 ml 308 ml 383 ml Output Total 300 ml 350 ml 400 ml 300 ml Balance 133 ml 171 ml -92 ml 83 ml Intake Oral 0 ml 0 ml IV Total 0 ml 0 ml Tube Feeding 313 ml 401 ml 308 ml 383 ml Other 120 ml 120 ml Output Urine Total 300 ml 350 ml 400 ml 300 ml Tube Feeding Residual Discard 0 ml 0 ml # Bowel Movements 1 3 1 2 Result Diagram: 11/01/15 0556 11/01/15 0556 Objective Remarks GENERAL: Cachectic, contracted patient, chronic ill-looking, in no apparent distress. CARDIOVASCULAR: Regular rate and rhythm without murmurs, gallops, or rubs. RESPIRATORY: Fair air entry, no wheezes GASTROINTESTINAL: Abdomen soft, non-tender, nondistended. Normal active bowel sounds PEG tube in place MUSCULOSKELETAL: Lower extremity in crossover contraction , positive pedal pulses,. NEURO: Open eyes doesn't follow commands, spontaneous movement of upper or lower extremity, doesn't answer question Procedures 07/26- PEG replacement 07/29- right pigtail catheter placement for new pneumothorax Date of Insertion: Oct 05, 2015 A/P Problem List: (1) Sepsis due to urinary tract infection Status: Resolved (2) Acute respiratory failure Status: Resolved (3) Chronic respiratory failure Status: Chronic (4) Parkinson disease Status: Chronic (5) UTI (urinary tract infection) Status: Acute (6) Encephalopathy Status: Resolved Assessment and Plan Daily update & Mngmt 11/03 Discussed with the nurse, no acute issue, continue current care Record and hospital course reviewed including lab in previous intensive care notes Daily update & Mngmt 11/04 Continue current care follow with a photostat operator helper, currently on T-tube General A/P: 55 years old male with Parkinson's disease Cognitive disorder Chronic encephalopathy Dementia Depression Contractures On no sedation. CT head 06/18/15: diffuse atrophy unchanged. No acute intracranial findings Continue Sinemet 25/100 q8 via PEG, Seroquel 50 mg twice a day, olanzapine 5 mg a night, Klonopin 2 mg every 8 hours, Paxil 20 daily Continue Lortab when necessary pain and fentanyl patch 50 g every 3 days for pain management. Fentanyl bolus prn breakthrough pain or if needed for turning/ nursing care/etc. Acute on chronic respiratory failure Chronic trach #8 Shiley distal XLT Pneumonia, aspiration (ESBL Klebsiella and Pseudomonas pneumonia) Right pneumothorax status post pigtail catheter 2 (resolved) On T piece since 10/30 with CPAP at night. Tolerating T piece as tolerated starting 11/01 including night time. Pulmonary Dr. Restrepo following. On Prednisone 60mg daily Exchanged to 8 Distal XLT on 08/15 to facilitate suctioning, trach care. Bronchodilators ( DuoNeb) CXR 10/18, 10/26: No acute pulmonary infiltrates. History of orthostasis History of CAD History dyslipidemia History of hypertension Continue Midodrine 5 mg BID. Monitor HR and BP keep MAP>65mmHg. Chronic moderate protein energy malnutrition Dysphagia Status post PEG Internal hemorrhoids Gastroesophageal reflux disease - TF Jevity 1.5 @ 60ml/hr, on Reglan 5mg Q8 PRN for high residuals. - On Prevacid 30 mg per PEG tube daily for GERD - 10/11 KUB abdomen: PEG tube in place. Unremarkable bowel gas pattern. FEN/Renal: Nonobstructing left renal calculus - Monitor renal function, I/O's. electrolytes replacement per protocol. Aspiration pneumonia Heena UTI 10/19 Sputum: Pseudomonas- likely colonized 10/19 urine cx: Yeast species 10/12 BC: NGTD 10/11 BC: NGTD 10/11 Urine cx: C. Tropicalis 10/11 Sputum: ESBL Klebsiella and Pseudomonas pneumonia 10/10 Urine: C. Tropicalis 09/21 Urine cx: Pseudomonas ? colonized 09/19 Sputum cx: Pseudomonas, Kleb pneumonia ESBL pos Candiduria (heena tropicalis urine cx 08/17) ESBL positive Klebsiella/Pseudomonas pneumonia Stenotrophomonas in sputum 08/17 MRSA colonization Sepsis UTI Klebsiella ESBL positive (has been treated) Off abx s/p ( Merrem finished 10 day course 10/23) monitor for signs of infections ( Fever, WBC) ID service is following as needed- Dr. Enoc Moss. CXR 10/26 no acute changes. Normocytic Anemia - Monitor CBC Bilateral lower extremity Contractures Stage III sacral decubitus present on admission - Wound care and PT on case Prophylaxis - GI - Prevacid - DVT - SCDs/ Lovenox. Discharge Planning to LTC when cleared by pulmonary Jb Ervin MD Nov 05, 2015 13:06
--- NOTE | 2015-11-05 19:54 | HHI.PR ---
Subjective Remarks 54 YOWM with ChRF,Trach, multiple uti No fever Gets anxious. Mod amount of trach secretions. Tolerating T-Bar Tolerates TF No Nausea Objective Vital Signs Vital Signs Date Time Temp Pulse Resp B/P Pulse Ox O2 Delivery O2 Flow Rate FiO2 11/05/15 18:00 69 11/05/15 16:00 72 11/05/15 16:00 97.2 74 16 102/74 99 11/05/15 16:00 99 T-Piece 5.00 28 11/05/15 14:00 71 11/05/15 12:00 71 11/05/15 12:00 97.2 71 16 122/83 98 11/05/15 12:00 98 T-Piece 5.00 11/05/15 10:00 80 11/05/15 08:00 98 T-Piece 5.00 11/05/15 08:00 73 11/05/15 08:00 97.2 74 18 127/90 98 11/05/15 07:37 98 T-piece 28 11/05/15 06:00 77 11/05/15 04:00 97.3 75 20 101/72 100 11/05/15 04:00 75 11/05/15 04:00 100 T-Piece 28 11/05/15 02:00 70 11/05/15 00:00 98.1 79 17 117/87 98 11/05/15 00:00 79 11/05/15 00:00 100 T-Piece 28 11/04/15 22:00 82 11/04/15 20:20 100 T-piece 28 11/04/15 20:00 98.1 79 21 117/82 100 11/04/15 20:00 79 11/04/15 20:00 100 T-Piece 28 I/O 11/04/15 11/04/15 11/04/15 11/05/15 11/05/15 11/05/15 07:00 15:00 23:00 07:00 15:00 23:00 Intake Total 433 ml 521 ml 308 ml 383 ml 381 ml Output Total 300 ml 350 ml 400 ml 300 ml 250 ml Balance 133 ml 171 ml -92 ml 83 ml 131 ml Intake Oral 0 ml 0 ml IV Total 0 ml 0 ml Tube Feeding 313 ml 401 ml 308 ml 383 ml 381 ml Other 120 ml 120 ml Output Urine Total 300 ml 350 ml 400 ml 300 ml 250 ml Tube Feeding Residual Discard 0 ml 0 ml # Bowel Movements 1 3 1 2 1 Result Diagram: 11/01/15 0556 11/01/15 0556 Objective Remarks GENERAL: MBMN male on Vent. SKIN: Warm and dry. HEAD: Normocephalic. EYES: No scleral icterus. No injection or drainage. NECK: Supple, trachea midline. No JVD or lymphadenopathy. has trach CARDIOVASCULAR: Regular rate and rhythm without murmurs, gallops, or rubs. RESPIRATORY: Breath sounds equal bilaterally. No accessory muscle use. GASTROINTESTINAL: Abdomen soft, non-tender, nondistended. PEG tube in place MUSCULOSKELETAL: No cyanosis, or edema. BACK: Nontender without obvious deformity. No CVA tenderness. A/P Assessment and Plan VDRF S/P Trach Parkinson's diasease Dementia Aspiration PLAN: TF Cont Trach collar Trach care Cont Abx CPAP prn Severiano Ag MD Nov 05, 2015 19:54
[2015-11-05] MEDS: ENOXAPARIN SODIUM 40 MG/0.4 ML SYRINGE SQ SCH (22:48)
[2015-11-05] MEDS: OLANZapine 5 MG TAB GT SCH (22:48)
[2015-11-06] VITALS (14 sets, daily range): BP systolic 100–141; BP diastolic 64–89; PULSE 64–97; RESP 12–25; TEMP 97.2–98; O2SAT 95–99
[2015-11-06] MEDS: ACETAMINOPHEN/HYDROcodone 325 MG/5 MG TAB PO PRN ×2 (01:11→10:13)
[2015-11-06] MEDS: CARBIDOPA/LEVODOPA 25 MG/100 MG TAB GT SCH ×3 (05:46→20:46)
[2015-11-06] MEDS: clonazePAM 1 MG TAB PO SCH ×3 (05:46→20:46)
[2015-11-06] MEDS: INSULIN NovoLIN REGULAR SUPPLEMENTAL SCALE SQ SCH ×3 (06:00→18:19)
[2015-11-06] MEDS: CHLORHEXIDINE 0.12% (ORAL KIT) 15 ML CUP MT SCH ×2 (08:00→20:00)
[2015-11-06] MEDS: SODIUM CHLORIDE 0.9% FLUSH 5 ML FLUSH IVF SCH ×2 (10:10→20:46)
[2015-11-06] MEDS: ARTIFICIAL TEARS OPTH SOLN 15 ML BTL EACH EYE SCH ×3 (10:10→18:19)
[2015-11-06] MEDS: COLLAGENASE OINT 30 GM TUBE TOP SCH (10:10)
[2015-11-06] MEDS: predniSONE 20 MG TAB PO SCH (10:11)
[2015-11-06] MEDS: GABAPENTIN 300 MG CAP G-TUBE SCH ×2 (10:11→20:47)
[2015-11-06] MEDS: MIDODRINE 5 MG TAB G-TUBE SCH ×2 (10:11→21:00)
[2015-11-06] MEDS: LANSOPRAZOLE SOLUTAB 30 MG TAB NG SCH (10:11)
[2015-11-06] MEDS: QUEtiapine FUMARATE 25 MG TAB G-TUBE SCH ×2 (10:12→20:46)
[2015-11-06] MEDS: PARoxetine HCL 20 MG TAB G-TUBE SCH (10:12)
[2015-11-06] MEDS: LACTOBACILLUS ACIDOPHILUS TAB PO SCH ×3 (10:12→18:19)
--- NOTE | 2015-11-06 13:12 | HHI.PR ---
Subjective Remarks Laying in bed with open eyes, nonverbal not communicative He looks comfortable, no fever or chills Pulmonary following for trach care Objective Vitals Vital Signs Date Time Temp Pulse Resp B/P Pulse Ox O2 Delivery O2 Flow Rate FiO2 11/06/15 12:00 69 11/06/15 12:00 98 T-Piece 5.00 28 11/06/15 12:00 97.7 69 12 100/70 98 11/06/15 10:00 82 11/06/15 08:00 98.0 86 18 121/85 98 11/06/15 08:00 98 T-Piece 5.00 28 11/06/15 08:00 86 11/06/15 07:51 99 T-piece 28 11/06/15 06:00 74 11/06/15 04:00 76 11/06/15 04:00 97.7 76 15 124/89 98 11/06/15 04:00 98 T-Piece 28 11/06/15 02:00 89 11/06/15 00:00 100 T-Piece 11/06/15 00:00 98.0 97 23 135/89 98 11/06/15 00:00 97 11/05/15 22:25 95 T-piece 11/05/15 22:00 85 11/05/15 20:00 79 11/05/15 20:00 98.8 79 17 124/80 100 11/05/15 20:00 100 T-Piece 11/05/15 18:00 69 11/05/15 16:00 72 11/05/15 16:00 97.2 74 16 102/74 99 11/05/15 16:00 99 T-Piece 5.00 11/05/15 14:00 71 I/O 11/05/15 11/05/15 11/05/15 11/06/15 11/06/15 11/06/15 07:00 15:00 23:00 07:00 15:00 23:00 Intake Total 383 ml 381 ml 461 ml 419 ml Output Total 300 ml 250 ml 500 ml 250 ml Balance 83 ml 131 ml -39 ml 169 ml Tube Feeding 383 ml 381 ml 461 ml 419 ml Output Urine Total 300 ml 250 ml 500 ml 250 ml # Bowel Movements 2 1 1 1 Objective Remarks GENERAL: Cachectic, contracted patient, chronic ill-looking, in no apparent distress. CARDIOVASCULAR: Regular rate and rhythm without murmurs, gallops, or rubs. RESPIRATORY: Fair air entry, no wheezes GASTROINTESTINAL: Abdomen soft, non-tender, nondistended. Normal active bowel sounds PEG tube in place MUSCULOSKELETAL: Lower extremity in crossover contraction , positive pedal pulses,. NEURO: Open eyes doesn't follow commands, spontaneous movement of upper or lower extremity, doesn't answer question Procedures 07/26- PEG replacement 07/29- right pigtail catheter placement for new pneumothorax Date of Insertion: Oct 05, 2015 A/P Problem List: (1) Sepsis due to urinary tract infection ICD Code: A41.9 Status: Resolved (2) Acute respiratory failure ICD Code: J96.00 Status: Resolved (3) Chronic respiratory failure ICD Code: J96.10 Status: Chronic (4) Parkinson disease ICD Code: G20 Status: Chronic (5) UTI (urinary tract infection) ICD Code: N39.0 Status: Acute (6) Encephalopathy ICD Code: G93.40 Status: Resolved Assessment and Plan Daily update & Mngmt 11/03 Discussed with the nurse, no acute issue, continue current care Record and hospital course reviewed including lab in previous intensive care notes Daily update & Mngmt 11/04 Continue current care follow with a filter press tender head, currently on T-tube Daily update & Mngmt 11/05 Continue current care, monitor temperature, O2 sat, continue following up with filter press tender head General A/P: 55 years old male with Parkinson's disease Cognitive disorder Chronic encephalopathy Dementia Depression Contractures On no sedation. CT head 06/18/15: diffuse atrophy unchanged. No acute intracranial findings Continue Sinemet 25/100 q8 via PEG, Seroquel 50 mg twice a day, olanzapine 5 mg a night, Klonopin 2 mg every 8 hours, Paxil 20 daily Continue Lortab when necessary pain and fentanyl patch 50 g every 3 days for pain management. Fentanyl bolus prn breakthrough pain or if needed for turning/ nursing care/etc. Acute on chronic respiratory failure Chronic trach #8 Shiley distal XLT Pneumonia, aspiration (ESBL Klebsiella and Pseudomonas pneumonia) Right pneumothorax status post pigtail catheter 2 (resolved) On T piece since 10/30 with CPAP at night. Tolerating T piece as tolerated starting 11/01 including night time. Pulmonary Dr. Restrepo following. On Prednisone 60mg daily Exchanged to 8 Distal XLT on 08/15 to facilitate suctioning, trach care. Bronchodilators ( DuoNeb) CXR 10/18, 10/26: No acute pulmonary infiltrates. History of orthostasis History of CAD History dyslipidemia History of hypertension Continue Midodrine 5 mg BID. Monitor HR and BP keep MAP>65mmHg. Chronic moderate protein energy malnutrition Dysphagia Status post PEG Internal hemorrhoids Gastroesophageal reflux disease - TF Jevity 1.5 @ 60ml/hr, on Reglan 5mg Q8 PRN for high residuals. - On Prevacid 30 mg per PEG tube daily for GERD - 10/11 KUB abdomen: PEG tube in place. Unremarkable bowel gas pattern. FEN/Renal: Nonobstructing left renal calculus - Monitor renal function, I/O's. electrolytes replacement per protocol. Aspiration pneumonia Heena UTI 10/19 Sputum: Pseudomonas- likely colonized 10/19 urine cx: Yeast species 10/12 BC: NGTD 10/11 BC: NGTD 10/11 Urine cx: C. Tropicalis 10/11 Sputum: ESBL Klebsiella and Pseudomonas pneumonia 10/10 Urine: C. Tropicalis 09/21 Urine cx: Pseudomonas ? colonized 09/19 Sputum cx: Pseudomonas, Kleb pneumonia ESBL pos Candiduria (heena tropicalis urine cx 08/17) ESBL positive Klebsiella/Pseudomonas pneumonia Stenotrophomonas in sputum 08/17 MRSA colonization Sepsis UTI Klebsiella ESBL positive (has been treated) Off abx s/p ( Merrem finished 10 day course 10/23) monitor for signs of infections ( Fever, WBC) ID service is following as needed- Dr. Enoc Moss. CXR 10/26 no acute changes. Normocytic Anemia - Monitor CBC Bilateral lower extremity Contractures Stage III sacral decubitus present on admission - Wound care and PT on case Prophylaxis - GI - Prevacid - DVT - SCDs/ Lovenox. Discharge Planning to LTC when cleared by pulmonary Jb Ervin MD Nov 06, 2015 13:12
--- NOTE | 2015-11-06 16:04 | HHI.HCPN ---
Called Radha hunter via telephone to set up time for meeting today. She tells me she is not able to come to visit today. She is not certain when she will be able to visit again. She will let me know if she plans a trip to visit. I attempted to discuss hospice services again today, however she does not engage in this conversation. Discussed with [facility]. case management explained daughter does not have a great understanding of medical problems despite ongoing conversations/ explanations. Code Status: No Code/ DNR/DNI Plan * Decision making: Patient is incapacitated and will not regain capacity. There is no designated health care surrogate. Daughter, Radha Foreman, is legal proxy under [place] statutes but can be hard to contact at times. * NO CODE/ DNR/ DNI * Goals aggressive short of NO CODE at this time. Spoke with Radha hunter ( [facility]) to provide update, she is unable to come for meeting 11/06/15. She is uncertain when she will be able to come, tells me she will call if/when she can come to town again. * Pain: Sources of pain are unclear as patient in non communicative, but would include prolonged bedbound status; tubes and lines; contractures; wound; etc. Current regimen appears to adequate. No further recommendations at this time. * Dyspnea: Dyspnea due to chronic resp failure. On oxygen via t-piece. * Malnutrition: Tolerating tube feeds. * Secretions: PRN Levsin available. Remains high risk for aspiration due to secretions and tube feeding. * Palliative care will try and meet with Radha (proxy) in person when she next comes to visit. She continues to insist on aggressive goals in spite of the incredibly bleak prognosis. ALOK JONES Nov 06, 2015 16:04
--- NOTE | 2015-11-06 19:42 | HHI.PR ---
Subjective Remarks 54 YOWM with ChRF,Trach, multiple uti No fever Gets anxious. Mod amount of trach secretions. Tolerating T-Bar Tolerates TF No new complaint Objective Vital Signs Vital Signs Date Time Temp Pulse Resp B/P Pulse Ox O2 Delivery O2 Flow Rate FiO2 11/06/15 18:00 78 11/06/15 16:00 97 11/06/15 16:00 97.2 97 25 141/64 95 11/06/15 16:00 95 T-Piece 5.00 28 11/06/15 14:00 64 11/06/15 12:00 69 11/06/15 12:00 98 T-Piece 5.00 28 11/06/15 12:00 97.7 69 12 100/70 98 11/06/15 10:00 82 11/06/15 08:00 98.0 86 18 121/85 98 11/06/15 08:00 98 T-Piece 5.00 28 11/06/15 08:00 86 11/06/15 07:51 99 T-piece 28 11/06/15 06:00 74 11/06/15 04:00 76 11/06/15 04:00 97.7 76 15 124/89 98 11/06/15 04:00 98 T-Piece 28 11/06/15 02:00 89 11/06/15 00:00 100 T-Piece 28 11/06/15 00:00 98.0 97 23 135/89 98 11/06/15 00:00 97 11/05/15 22:25 95 T-piece 28 11/05/15 22:00 85 11/05/15 20:00 79 11/05/15 20:00 98.8 79 17 124/80 100 11/05/15 20:00 100 T-Piece 28 I/O 11/05/15 11/05/15 11/05/15 11/06/15 11/06/15 11/06/15 07:00 15:00 23:00 07:00 15:00 23:00 Intake Total 383 ml 381 ml 461 ml 419 ml 534 ml Output Total 300 ml 250 ml 500 ml 250 ml 350 ml Balance 83 ml 131 ml -39 ml 169 ml 184 ml Tube Feeding 383 ml 381 ml 461 ml 419 ml 534 ml Output Urine Total 300 ml 250 ml 500 ml 250 ml 350 ml # Bowel Movements 2 1 1 1 2 Objective Remarks GENERAL: MBMN male on Vent. SKIN: Warm and dry. HEAD: Normocephalic. EYES: No scleral icterus. No injection or drainage. NECK: Supple, trachea midline. No JVD or lymphadenopathy. has trach CARDIOVASCULAR: Regular rate and rhythm without murmurs, gallops, or rubs. RESPIRATORY: Breath sounds equal bilaterally. No accessory muscle use. GASTROINTESTINAL: Abdomen soft, non-tender, nondistended. PEG tube in place MUSCULOSKELETAL: No cyanosis, or edema. BACK: Nontender without obvious deformity. No CVA tenderness. A/P Assessment and Plan VDRF S/P Trach Parkinson's diasease Dementia Aspiration PLAN: TF Cont Trach collar Trach care Cont Abx CPAP prn Severiano Ag MD Nov 06, 2015 19:42
[2015-11-06] MEDS: OLANZapine 5 MG TAB GT SCH (20:46)
[2015-11-06] MEDS: ENOXAPARIN SODIUM 40 MG/0.4 ML SYRINGE SQ SCH (20:47)
[2015-11-07] VITALS (15 sets, daily range): BP systolic 112–135; BP diastolic 79–90; PULSE 74–93; RESP 15–19; TEMP 97.8–98.6; O2SAT 97–100
[2015-11-07] MEDS: INSULIN NovoLIN REGULAR SUPPLEMENTAL SCALE SQ SCH ×4 (05:26→18:00)
[2015-11-07] MEDS: clonazePAM 1 MG TAB PO SCH ×3 (05:26→21:46)
[2015-11-07] MEDS: CARBIDOPA/LEVODOPA 25 MG/100 MG TAB GT SCH ×3 (05:26→21:46)
[2015-11-07] MEDS: CHLORHEXIDINE 0.12% (ORAL KIT) 15 ML CUP MT SCH ×2 (08:00→20:00)
[2015-11-07] MEDS: SODIUM CHLORIDE 0.9% FLUSH 5 ML FLUSH IVF SCH ×2 (09:00→20:03)
[2015-11-07] MEDS: ARTIFICIAL TEARS OPTH SOLN 15 ML BTL EACH EYE SCH ×3 (09:00→18:00)
[2015-11-07] MEDS: COLLAGENASE OINT 30 GM TUBE TOP SCH (09:00)
[2015-11-07] MEDS: PARoxetine HCL 20 MG TAB G-TUBE SCH (10:04)
[2015-11-07] MEDS: MIDODRINE 5 MG TAB G-TUBE SCH ×2 (10:04→20:03)
[2015-11-07] MEDS: QUEtiapine FUMARATE 25 MG TAB G-TUBE SCH ×2 (10:05→20:03)
[2015-11-07] MEDS: GABAPENTIN 300 MG CAP G-TUBE SCH ×2 (10:05→20:03)
[2015-11-07] MEDS: LANSOPRAZOLE SOLUTAB 30 MG TAB NG SCH (10:05)
[2015-11-07] MEDS: LACTOBACILLUS ACIDOPHILUS TAB PO SCH ×3 (10:05→18:00)
[2015-11-07] MEDS: predniSONE 20 MG TAB PO SCH (10:05)
--- NOTE | 2015-11-07 11:49 | HHI.PR ---
Subjective Remarks Patient laying with open eyes as usual nonverbal Today the nurse notified me that he'll looks more plethoric, on his face, patient has been on Midrin and prednisone 60 mg daily No other issue Objective Vitals Vital Signs Date Time Temp Pulse Resp B/P Pulse Ox O2 Delivery O2 Flow Rate FiO2 11/07/15 10:00 76 11/07/15 08:15 97 T-piece 6.00 28 11/07/15 08:00 76 11/07/15 08:00 98 T-Piece 28 11/07/15 08:00 98.6 93 18 129/90 98 11/07/15 06:00 76 11/07/15 04:00 79 11/07/15 04:00 98.4 79 18 131/90 98 11/07/15 04:00 98 T-Piece 28 11/07/15 02:00 79 11/07/15 00:00 97.8 78 15 112/79 99 11/07/15 00:00 99 T-Piece 11/07/15 00:00 78 11/06/15 22:00 86 11/06/15 20:40 97 T-piece 28 11/06/15 20:00 74 11/06/15 20:00 97 T-Piece 11/06/15 20:00 97.7 74 13 134/87 97 11/06/15 18:00 78 11/06/15 16:00 97 11/06/15 16:00 97.2 97 25 141/64 95 11/06/15 16:00 95 T-Piece 5.00 11/06/15 14:00 64 11/06/15 12:00 69 11/06/15 12:00 98 T-Piece 5.00 11/06/15 12:00 97.7 69 12 100/70 98 I/O 11/06/15 11/06/15 11/06/15 11/07/15 11/07/15 11/07/15 07:00 15:00 23:00 07:00 15:00 23:00 Intake Total 419 ml 534 ml 301 ml 498 ml Output Total 250 ml 350 ml 350 ml 450 ml Balance 169 ml 184 ml -49 ml 48 ml Tube Feeding 419 ml 534 ml 301 ml 498 ml Output Urine Total 250 ml 350 ml 350 ml 450 ml # Bowel Movements 1 2 2 2 Objective Remarks GENERAL: Cachectic, contracted patient, chronic ill-looking, in no apparent distress. CARDIOVASCULAR: Regular rate and rhythm without murmurs, gallops, or rubs. RESPIRATORY: Fair air entry, no wheezes GASTROINTESTINAL: Abdomen soft, non-tender, nondistended. Normal active bowel sounds PEG tube in place MUSCULOSKELETAL: Lower extremity in crossover contraction , positive pedal pulses,. NEURO: Open eyes doesn't follow commands, spontaneous movement of upper or lower extremity, doesn't answer question Procedures 07/26- PEG replacement 07/29- right pigtail catheter placement for new pneumothorax Date of Insertion: Oct 05, 2015 A/P Problem List: (1) Sepsis due to urinary tract infection ICD Code: A41.9 Status: Resolved (2) Acute respiratory failure ICD Code: J96.00 Status: Resolved (3) Chronic respiratory failure ICD Code: J96.10 Status: Chronic (4) Parkinson disease ICD Code: G20 Status: Chronic (5) UTI (urinary tract infection) ICD Code: N39.0 Status: Acute (6) Encephalopathy ICD Code: G93.40 Status: Resolved Assessment and Plan Daily update & Mngmt 11/03 Discussed with the nurse, no acute issue, continue current care Record and hospital course reviewed including lab in previous intensive care notes Daily update & Mngmt 11/04 Continue current care follow with a commercial assistant, currently on T-tube Daily update & Mngmt 11/05 Continue current care, monitor temperature, O2 sat, continue following up with commercial assistant Daily update & Mngmt 11/06: 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 CT head 06/18/15: diffuse atrophy unchanged. No acute intracranial findings Continue Sinemet 25/100 q8 via PEG, Seroquel 50 mg twice a day, olanzapine 5 mg a night, Klonopin 2 mg every 8 hours, Paxil 20 daily Continue Lortab when necessary pain and fentanyl patch 50 g every 3 days for pain management. Fentanyl bolus prn breakthrough pain or if needed for turning/ nursing care/etc. Acute on chronic respiratory failure Chronic trach #8 Shiley distal XLT Pneumonia, aspiration (ESBL Klebsiella and Pseudomonas pneumonia) Right pneumothorax status post pigtail catheter 2 (resolved) On T piece since 10/30 with CPAP at night. Tolerating T piece as tolerated starting 11/01 including night time. Pulmonary Dr. Restrepo following. On Prednisone 60mg daily Exchanged to 8 Distal XLT on 08/15 to facilitate suctioning, trach care. Bronchodilators ( DuoNeb) CXR 10/18, 10/26: No acute pulmonary infiltrates. History of orthostasis History of CAD History dyslipidemia History of hypertension Continue Midodrine 5 mg BID. Monitor HR and BP keep MAP>65mmHg. Chronic moderate protein energy malnutrition Dysphagia Status post PEG Internal hemorrhoids Gastroesophageal reflux disease - TF Jevity 1.5 @ 60ml/hr, on Reglan 5mg Q8 PRN for high residuals. - On Prevacid 30 mg per PEG tube daily for GERD - 10/11 KUB abdomen: PEG tube in place. Unremarkable bowel gas pattern. FEN/Renal: Nonobstructing left renal calculus - Monitor renal function, I/O's. electrolytes replacement per protocol. Aspiration pneumonia Heena UTI 10/19 Sputum: Pseudomonas- likely colonized 10/19 urine cx: Yeast species 10/12 BC: NGTD 10/11 BC: NGTD 10/11 Urine cx: C. Tropicalis 10/11 Sputum: ESBL Klebsiella and Pseudomonas pneumonia 10/10 Urine: C. Tropicalis 09/21 Urine cx: Pseudomonas ? colonized 09/19 Sputum cx: Pseudomonas, Kleb pneumonia ESBL pos Candiduria (heena tropicalis urine cx 08/17) ESBL positive Klebsiella/Pseudomonas pneumonia Stenotrophomonas in sputum 08/17 MRSA colonization Sepsis UTI Klebsiella ESBL positive (has been treated) Off abx s/p ( Merrem finished 10 day course 10/23) monitor for signs of infections ( Fever, WBC) ID service is following as needed- Dr. Enoc Moss. CXR 10/26 no acute changes. Normocytic Anemia - Monitor CBC Bilateral lower extremity Contractures Stage III sacral decubitus present on admission - Wound care and PT on case Prophylaxis - GI - Prevacid - DVT - SCDs/ Lovenox. Discharge Planning to LTC when cleared by pulmonary Jb Ervin MD Nov 07, 2015 11:49
[2015-11-07] MEDS: ACETAMINOPHEN/HYDROcodone 325 MG/5 MG TAB PO PRN (12:42)
--- NOTE | 2015-11-07 12:46 | RADRPT ---
EXAM DATE/TIME: 11/07/2015 11:41 [facility] COMPARISON: CHEST SINGLE AP, October 27, 2015, 4:06. INDICATIONS : Evaluate lung status. MEDICAL HISTORY : Hypertension. Cardiovascular disease. Diabetes mellitus type II. SURGICAL HISTORY : Tracheostomy. ENCOUNTER: Subsequent ACUITY: 7 - 11 months PAIN SCORE: Non-responsive. LOCATION: Bilateral chest FINDINGS: A single view of the chest demonstrates the lungs to be symmetrically aerated without evidence of mas s, infiltrate or effusion. The cardiomediastinal contours are unremarkable. Osseous structures are intact. CONCLUSION: No acute disease. Milo Jackson MD FACR on November 07, 2015 at 12:44 Board Certified Radiologist. This report was verified electronically.
[2015-11-07 13:51] LABS: AUTOMATED NEUTROPHIL # 11.9 TH/MM3 (1.8-7.7); BASOPHIL # 0.1 TH/MM3 (0-0.2); BASOPHIL % 0.5 % (0.0-2.0); EOSINOPHIL # 0.2 TH/MM3 (0-0.4); EOSINOPHIL % 1.5 % (0.0-4.0); HEMATOCRIT 37.5 % (39.0-51.0); LYMPH % 19.3 % (9.0-44.0); LYMPHOCYTE # 3.1 TH/MM3 (1.0-4.8); MEAN CELL VOLUME 82.6 FL (80.0-100.0); MEAN CORPUSCULAR HGB CONC 32.7 % (32.0-36.0); MONO % 5.1 % (0.0-8.0); NEUT % 73.6 % (16.0-70.0); RED BLOOD COUNT 4.54 MIL/MM3 (4.50-5.90); RED CELL DISTRIBUTION WIDTH 18.4 % (11.6-17.2); WHITE BLOOD COUNT 16.2 TH/MM3 (4.0-11.0)
[2015-11-07 14:11] LABS: BICARBONATE 29.1 MEQ/L (21.0-32.0)
[2015-11-07 14:16] LABS: POTASSIUM 5.2 MEQ/L (3.5-5.1)
[2015-11-07 14:22] LABS: HEMO FLAGS AUTO DIFF
[2015-11-07 14:23] LABS: BANDS 4 % (0-6); EOSINOPHILS 4 % (0-4); NEUTROPHIL # MANUAL DIFF 10.5 TH/MM3 (1.8-7.7); PLATELET ESTIMATE SMEAR NORMAL (NORMAL); PLATELET MORPHOLOGY ENLARGED (NORMAL); POLYS (SEG NEUTROPHILS) 61 % (16-70); SCAN/DIFF FINAL DIFF MANUAL; WBC DIFF SAMPLE 100
[2015-11-07] MEDS: OLANZapine 5 MG TAB GT SCH (20:03)
[2015-11-07] MEDS: ENOXAPARIN SODIUM 40 MG/0.4 ML SYRINGE SQ SCH (21:46)
[2015-11-08] VITALS (14 sets, daily range): BP systolic 107–136; BP diastolic 74–94; PULSE 72–128; RESP 17–22; TEMP 97–99.1; O2SAT 95–99
[2015-11-08 04:41] LABS: AUTOMATED NEUTROPHIL # 7.6 TH/MM3 (1.8-7.7); BASOPHIL % 0.3 % (0.0-2.0); EOSINOPHIL # 0.2 TH/MM3 (0-0.4); EOSINOPHIL % 1.9 % (0.0-4.0); HEMATOCRIT 37.7 % (39.0-51.0); HEMO FLAGS DIFF FINAL; LYMPH % 22.2 % (9.0-44.0); LYMPHOCYTE # 2.4 TH/MM3 (1.0-4.8); MEAN CELL VOLUME 83.1 FL (80.0-100.0); MEAN CORPUSCULAR HEMOGLOBIN 27.7 PG (27.0-34.0); MEAN CORPUSCULAR HGB CONC 33.3 % (32.0-36.0); MONO % 5.8 % (0.0-8.0); NEUT % 69.8 % (16.0-70.0); PLATELET COUNT 153 TH/MM3 (150-450); RED BLOOD COUNT 4.54 MIL/MM3 (4.50-5.90); RED CELL DISTRIBUTION WIDTH 18.6 % (11.6-17.2); WHITE BLOOD COUNT 10.9 TH/MM3 (4.0-11.0)
[2015-11-08] MEDS: CARBIDOPA/LEVODOPA 25 MG/100 MG TAB GT SCH ×3 (05:08→22:05)
[2015-11-08] MEDS: clonazePAM 1 MG TAB PO SCH ×3 (05:08→22:05)
[2015-11-08 05:09] LABS: BICARBONATE 32.4 MEQ/L (21.0-32.0); POTASSIUM 4.1 MEQ/L (3.5-5.1)
[2015-11-08] MEDS: INSULIN NovoLIN REGULAR SUPPLEMENTAL SCALE SQ SCH ×4 (05:14→16:46)
[2015-11-08] MEDS: GABAPENTIN 300 MG CAP G-TUBE SCH ×2 (07:38→20:00)
[2015-11-08] MEDS: QUEtiapine FUMARATE 25 MG TAB G-TUBE SCH ×2 (07:38→20:00)
[2015-11-08] MEDS: LANSOPRAZOLE SOLUTAB 30 MG TAB NG SCH (07:38)
[2015-11-08] MEDS: PARoxetine HCL 20 MG TAB G-TUBE SCH (07:38)
[2015-11-08] MEDS: COLLAGENASE OINT 30 GM TUBE TOP SCH (07:38)
[2015-11-08] MEDS: LACTOBACILLUS ACIDOPHILUS TAB PO SCH ×3 (07:39→16:45)
[2015-11-08] MEDS: ARTIFICIAL TEARS OPTH SOLN 15 ML BTL EACH EYE SCH ×3 (07:39→16:46)
[2015-11-08] MEDS: CHLORHEXIDINE 0.12% (ORAL KIT) 15 ML CUP MT SCH ×2 (07:39→20:00)
[2015-11-08] MEDS: predniSONE 20 MG TAB PO SCH (07:39)
[2015-11-08] MEDS: SODIUM CHLORIDE 0.9% FLUSH 5 ML FLUSH IVF SCH ×2 (07:39→20:00)
[2015-11-08] MEDS: MIDODRINE 5 MG TAB G-TUBE SCH ×2 (07:39→20:00)
[2015-11-08] MEDS: REMOVE OLD PATCH TD SCH (07:52)
--- NOTE | 2015-11-08 12:25 | HHI.PR ---
Subjective Remarks Laying in bed with eyes closed, face look less plethoric, discussed with the nurse, still on T tube We'll try to transfer to [facility] room with telemetry close to the nurse station Objective Vitals Vital Signs Date Time Temp Pulse Resp B/P Pulse Ox O2 Delivery O2 Flow Rate FiO2 11/08/15 08:38 98 T-piece 6.00 21 11/08/15 08:00 98 T-Piece 21 11/08/15 08:00 90 11/08/15 08:00 98.1 90 20 119/85 98 11/08/15 06:00 93 11/08/15 04:00 72 11/08/15 04:00 95 Room Air 11/08/15 04:00 98.8 72 19 124/83 95 11/08/15 02:00 75 11/08/15 00:00 97.9 89 17 136/94 97 11/08/15 00:00 89 11/08/15 00:00 97 Room Air 11/07/15 22:00 74 11/07/15 21:20 98 T-piece 21 11/07/15 21:15 100 T-piece 5.00 28 11/07/15 20:00 100 T-Piece 28 11/07/15 20:00 98.2 83 19 115/85 100 11/07/15 20:00 83 11/07/15 18:00 76 11/07/15 16:00 98.4 79 18 131/90 98 11/07/15 16:00 98 T-Piece 28 11/07/15 16:00 76 11/07/15 14:00 76 I/O 11/07/15 11/07/15 11/07/15 11/08/15 11/08/15 11/08/15 07:00 15:00 23:00 07:00 15:00 23:00 Intake Total 498 ml 600 ml 387 ml 274 ml Output Total 450 ml 325 ml 850 ml 450 ml Balance 48 ml 275 ml -463 ml -176 ml Tube Feeding 498 ml 450 ml 357 ml 274 ml Other 150 ml 30 ml Output Urine Total 450 ml 325 ml 850 ml 450 ml # Bowel Movements 2 2 Result Diagram: 11/08/15 0405 11/08/15 0405 Objective Remarks GENERAL: Cachectic, contracted patient, chronic ill-looking, in no apparent distress. CARDIOVASCULAR: Regular rate and rhythm without murmurs, gallops, or rubs. RESPIRATORY: Fair air entry, no wheezes GASTROINTESTINAL: Abdomen soft, non-tender, nondistended. Normal active bowel sounds PEG tube in place MUSCULOSKELETAL: Lower extremity in crossover contraction , positive pedal pulses,. NEURO: Open eyes doesn't follow commands, spontaneous movement of upper or lower extremity, doesn't answer question Procedures 07/26- PEG replacement 07/29- right pigtail catheter placement for new pneumothorax Date of Insertion: Oct 05, 2015 A/P Problem List: (1) Sepsis due to urinary tract infection ICD Code: A41.9 Status: Resolved (2) Acute respiratory failure ICD Code: J96.00 Status: Resolved (3) Chronic respiratory failure ICD Code: J96.10 Status: Chronic (4) Parkinson disease ICD Code: G20 Status: Chronic (5) UTI (urinary tract infection) ICD Code: N39.0 Status: Acute (6) Encephalopathy ICD Code: G93.40 Status: Resolved Assessment and Plan Daily update & Mngmt 11/03 Discussed with the nurse, no acute issue, continue current care Record and hospital course reviewed including lab in previous intensive care notes Daily update & Mngmt 11/04 Continue current care follow with a spray dyer, currently on T-tube Daily update & Mngmt 11/05 Continue current care, monitor temperature, O2 sat, continue following up with spray dyer Daily update & Mngmt 11/06: 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, he is on Midrin, he also on prednisone 60 mg by mouth daily, discussed with the nurse, will discuss with pulmonary to start tapering prednisone if okay with him, will check manual blood pressure and if it's high we'll are Midodrin Appreciate palliative input, the daughter continue to requesting aggressive care despite poor prognosis Daily update & Mngmt 11/07 In the current care transferred to [facility] floor with telemetry when bed available next and the nurses station General A/P: 55 years old male with Parkinson's disease Cognitive disorder Chronic encephalopathy Dementia Depression Contractures On no sedation. CT head 06/18/15: diffuse atrophy unchanged. No acute intracranial findings Continue Sinemet 25/100 q8 via PEG, Seroquel 50 mg twice a day, olanzapine 5 mg a night, Klonopin 2 mg every 8 hours, Paxil 20 daily Continue Lortab when necessary pain and fentanyl patch 50 g every 3 days for pain management. Fentanyl bolus prn breakthrough pain or if needed for turning/ nursing care/etc. Acute on chronic respiratory failure Chronic trach #8 Shiley distal XLT Pneumonia, aspiration (ESBL Klebsiella and Pseudomonas pneumonia) Right pneumothorax status post pigtail catheter 2 (resolved) On T piece since 10/30 with CPAP at night. Tolerating T piece as tolerated starting 11/01 including night time. Pulmonary Dr. Restrepo following. On Prednisone 60mg daily Exchanged to 8 Distal XLT on 08/15 to facilitate suctioning, trach care. Bronchodilators ( DuoNeb) CXR 10/18, 10/26: No acute pulmonary infiltrates. History of orthostasis History of CAD History dyslipidemia History of hypertension Continue Midodrine 5 mg BID. Monitor HR and BP keep MAP>65mmHg. Chronic moderate protein energy malnutrition Dysphagia Status post PEG Internal hemorrhoids Gastroesophageal reflux disease - TF Jevity 1.5 @ 60ml/hr, on Reglan 5mg Q8 PRN for high residuals. - On Prevacid 30 mg per PEG tube daily for GERD - 10/11 KUB abdomen: PEG tube in place. Unremarkable bowel gas pattern. FEN/Renal: Nonobstructing left renal calculus - Monitor renal function, I/O's. electrolytes replacement per protocol. Aspiration pneumonia Heena UTI 10/19 Sputum: Pseudomonas- likely colonized 10/19 urine cx: Yeast species 10/12 BC: NGTD 10/11 BC: NGTD 10/11 Urine cx: C. Tropicalis 10/11 Sputum: ESBL Klebsiella and Pseudomonas pneumonia 10/10 Urine: C. Tropicalis 09/21 Urine cx: Pseudomonas ? colonized 09/19 Sputum cx: Pseudomonas, Kleb pneumonia ESBL pos Candiduria (heena tropicalis urine cx 08/17) ESBL positive Klebsiella/Pseudomonas pneumonia Stenotrophomonas in sputum 08/17 MRSA colonization Sepsis UTI Klebsiella ESBL positive (has been treated) Off abx s/p ( Merrem finished 10 day course 10/23) monitor for signs of infections ( Fever, WBC) ID service is following as needed- Dr. Enoc Moss. CXR 10/26 no acute changes. Normocytic Anemia - Monitor CBC Bilateral lower extremity Contractures Stage III sacral decubitus present on admission - Wound care and PT on case Prophylaxis - GI - Prevacid - DVT - SCDs/ Lovenox. Discharge Planning to LTC when cleared by pulmonary Jb Ervin MD Nov 08, 2015 12:25
[2015-11-08] MEDS: RESP: ALBUTEROL 2.5 MG/IPRATROPIUM 0.5 MG NEB (SCH) INH (19:15)
[2015-11-08] MEDS: OLANZapine 5 MG TAB GT SCH (20:00)
[2015-11-08] MEDS: ENOXAPARIN SODIUM 40 MG/0.4 ML SYRINGE SQ SCH (22:05)
[2015-11-09] VITALS (10 sets, daily range): BP systolic 96–122; BP diastolic 68–88; PULSE 96–114; RESP 18–26; TEMP 97.2–98.9; O2SAT 93–98
[2015-11-09] MEDS: clonazePAM 1 MG TAB PO SCH ×3 (05:37→20:59)
[2015-11-09] MEDS: CARBIDOPA/LEVODOPA 25 MG/100 MG TAB GT SCH ×3 (05:37→20:59)
[2015-11-09] MEDS: INSULIN NovoLIN REGULAR SUPPLEMENTAL SCALE SQ SCH ×5 (05:47→23:47)
[2015-11-09] MEDS: RESP: ALBUTEROL 2.5 MG/IPRATROPIUM 0.5 MG NEB (SCH) INH ×3 (07:27→19:43)
[2015-11-09] MEDS: LACTOBACILLUS ACIDOPHILUS TAB PO SCH ×3 (08:40→17:10)
[2015-11-09] MEDS: predniSONE 20 MG TAB PO SCH (08:40)
[2015-11-09] MEDS: CHLORHEXIDINE 0.12% (ORAL KIT) 15 ML CUP MT SCH ×2 (08:40→20:00)
[2015-11-09] MEDS: HYOSCYAMINE SOLN 0.125 MG/ML 15 ML BTL PO PRN (08:40)
[2015-11-09] MEDS: COLLAGENASE OINT 30 GM TUBE TOP SCH (08:40)
[2015-11-09] MEDS: LANSOPRAZOLE SOLUTAB 30 MG TAB NG SCH (08:41)
[2015-11-09] MEDS: QUEtiapine FUMARATE 25 MG TAB G-TUBE SCH ×2 (08:41→20:58)
[2015-11-09] MEDS: ARTIFICIAL TEARS OPTH SOLN 15 ML BTL EACH EYE SCH ×3 (08:41→17:11)
[2015-11-09] MEDS: SODIUM CHLORIDE 0.9% FLUSH 5 ML FLUSH IVF SCH ×2 (08:41→20:58)
[2015-11-09] MEDS: MIDODRINE 5 MG TAB G-TUBE SCH ×2 (08:41→20:58)
[2015-11-09] MEDS: PARoxetine HCL 20 MG TAB G-TUBE SCH (08:41)
[2015-11-09] MEDS: GABAPENTIN 300 MG CAP G-TUBE SCH ×2 (08:41→20:58)
--- NOTE | 2015-11-09 10:19 | HHI.PR ---
Subjective Remarks I was called by the nurse to see the patient, patient sounds "gurgly and wet in his lung" I did order to do chest toileting, Levsin, chest x-ray Came to see the patient he was ordered improved, nurse extracted large amount of secretions, yellowish green, no leukocytosis no fever Pulmonary following, will follow chest x-ray Objective Vitals Vital Signs Date Time Temp Pulse Resp B/P Pulse Ox O2 Delivery O2 Flow Rate FiO2 11/09/15 08:00 98.9 96 20 110/83 94 11/09/15 07:28 94 T-piece 11/09/15 06:00 103 11/09/15 04:00 94 T-Piece 21 11/09/15 04:00 103 11/09/15 04:00 98.9 103 26 102/74 94 11/09/15 02:00 114 11/09/15 00:00 111 11/09/15 00:00 93 T-Piece 21 11/09/15 00:00 98.7 111 22 96/68 93 11/08/15 22:00 114 11/08/15 20:00 128 11/08/15 20:00 99.1 128 20 108/82 97 11/08/15 20:00 92 T-Piece 21 11/08/15 19:14 96 T-piece 21 11/08/15 18:00 105 11/08/15 16:00 99 T-Piece 21 11/08/15 16:00 97.5 104 22 107/74 99 11/08/15 16:00 104 11/08/15 14:00 88 11/08/15 12:00 97.0 73 18 121/84 96 11/08/15 12:00 96 T-Piece 21 11/08/15 12:00 73 I/O 11/08/15 11/08/15 11/08/15 11/09/15 11/09/15 11/09/15 07:00 15:00 23:00 07:00 15:00 23:00 Intake Total 274 ml 327 ml 232 ml Output Total 450 ml 550 ml 350 ml 350 ml Balance -176 ml -550 ml -23 ml -118 ml Intake Oral 0 ml IV Total 0 ml Tube Feeding 274 ml 327 ml 232 ml Output Urine Total 450 ml 550 ml 350 ml 350 ml # Bowel Movements 3 2 Result Diagram: 11/08/15 0405 11/08/155 Objective Remarks GENERAL: Cachectic, contracted patient, chronic ill-looking, in no apparent distress. CARDIOVASCULAR: Regular rate and rhythm without murmurs, gallops, or rubs. RESPIRATORY: Some crackles, but fair air entry, GASTROINTESTINAL: Abdomen soft, non-tender, nondistended. Normal active bowel sounds PEG tube in place MUSCULOSKELETAL: Lower extremity in crossover contraction , positive pedal pulses,. NEURO: Open eyes doesn't follow commands, spontaneous movement of upper or lower extremity, doesn't answer question Procedures 07/26- PEG replacement 07/29- right pigtail catheter placement for new pneumothorax Date of Insertion: Oct 05, 2015 A/P Problem List: (1) Sepsis due to urinary tract infection ICD Code: A41.9 Status: Resolved (2) Acute respiratory failure ICD Code: J96.00 Status: Resolved (3) Chronic respiratory failure ICD Code: J96.10 Status: Chronic (4) Parkinson disease ICD Code: G20 Status: Chronic (5) UTI (urinary tract infection) ICD Code: N39.0 Status: Acute (6) Encephalopathy ICD Code: G93.40 Status: Resolved Assessment and Plan Daily update & Mngmt 11/03 Discussed with the nurse, no acute issue, continue current care Record and hospital course reviewed including lab in previous intensive care notes Daily update & Mngmt 11/04 Continue current care follow with a machine sand mixer, currently on T-tube Daily update & Mngmt 11/05 Continue current care, monitor temperature, O2 sat, continue following up with machine sand mixer Daily update & Mngmt 11/06: 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, he is on Midrin, he also on prednisone 60 mg by mouth daily, discussed with the nurse, will discuss with pulmonary to start tapering prednisone if okay with him, will check manual blood pressure and if it's high we'll are Midodrin Appreciate palliative input, the daughter continue to requesting aggressive care despite poor prognosis Daily update & Mngmt 11/07 In the [facility] when bed available next and the nurses station Daily update & Mngmt 11/08 Increased secretions no fever or leukocytosis, continue intense chest toileting , Levsin, nebulizer, on T-tube, pulmonary following General A/P: 55 years old male with Parkinson's disease Cognitive disorder Chronic encephalopathy Dementia Depression Contractures On no sedation. CT head 06/18/15: diffuse atrophy unchanged. No acute intracranial findings Continue Sinemet 25/100 q8 via PEG, Seroquel 50 mg twice a day, olanzapine 5 mg a night, Klonopin 2 mg every 8 hours, Paxil 20 daily Continue Lortab when necessary pain and fentanyl patch 50 g every 3 days for pain management. Fentanyl bolus prn breakthrough pain or if needed for turning/ nursing care/etc. Acute on chronic respiratory failure Chronic trach #8 Shiley distal XLT Pneumonia, aspiration (ESBL Klebsiella and Pseudomonas pneumonia) Right pneumothorax status post pigtail catheter 2 (resolved) On T piece since 10/30 with CPAP at night. Tolerating T piece as tolerated starting 11/01 including night time. Pulmonary Dr. Restrepo following. On Prednisone 60mg daily Exchanged to 8 Distal XLT on 08/15 to facilitate suctioning, trach care. Bronchodilators ( DuoNeb) CXR 10/18, 10/26: No acute pulmonary infiltrates. History of orthostasis History of CAD History dyslipidemia History of hypertension Continue Midodrine 5 mg BID. Monitor HR and BP keep MAP>65mmHg. Chronic moderate protein energy malnutrition Dysphagia Status post PEG Internal hemorrhoids Gastroesophageal reflux disease - TF Jevity 1.5 @ 60ml/hr, on Reglan 5mg Q8 PRN for high residuals. - On Prevacid 30 mg per PEG tube daily for GERD - 10/11 KUB abdomen: PEG tube in place. Unremarkable bowel gas pattern. FEN/Renal: Nonobstructing left renal calculus - Monitor renal function, I/O's. electrolytes replacement per protocol. Aspiration pneumonia Heena UTI 10/19 Sputum: Pseudomonas- likely colonized 10/19 urine cx: Yeast species 10/12 BC: NGTD 10/11 BC: NGTD 10/11 Urine cx: C. Tropicalis 10/11 Sputum: ESBL Klebsiella and Pseudomonas pneumonia 10/10 Urine: C. Tropicalis 09/21 Urine cx: Pseudomonas ? colonized 09/19 Sputum cx: Pseudomonas, Kleb pneumonia ESBL pos Candiduria (heena tropicalis urine cx 08/17) ESBL positive Klebsiella/Pseudomonas pneumonia Stenotrophomonas in sputum 08/17 MRSA colonization Sepsis UTI Klebsiella ESBL positive (has been treated) Off abx s/p ( Merrem finished 10 day course 10/23) monitor for signs of infections ( Fever, WBC) ID service is following as needed- Dr. Enoc Moss. CXR 10/26 no acute changes. Normocytic Anemia - Monitor CBC Bilateral lower extremity Contractures Stage III sacral decubitus present on admission - Wound care and PT on case Prophylaxis - GI - Prevacid - DVT - SCDs/ Lovenox. Discharge Planning to LTC when cleared by pulmonary Jb Ervin MD Nov 09, 2015 10:19
--- NOTE | 2015-11-09 11:36 | RADRPT ---
EXAM DATE/TIME: 11/09/2015 10:09 [facility] COMPARISON: CHEST SINGLE AP, November 07, 2015, 11:41. INDICATIONS : Congestion. MEDICAL HISTORY : None. SURGICAL HISTORY : tracheostomy. ENCOUNTER: Initial ACUITY: 1 week PAIN SCORE: Non-responsive. LOCATION: Bilateral chest FINDINGS: A single view of the chest demonstrates the lungs to be symmetrically aerated without evidence of mas s, or effusion. The cardiomediastinal contours are unremarkable. Osseous structures are intact. Tra cheostomy remains in place and there is some minimal change in the retrocardiac region coarsened bron chovascular markings CONCLUSION: Minimal coarsening of bronchovascular markings in the retrocardiac region left lower lobe which could represent minimal early infiltrate Reyes Jewell MD on November 09, 2015 at 11:33 Board Certified Radiologist. This report was verified electronically.
[2015-11-09] MEDS: OLANZapine 5 MG TAB GT SCH (20:58)
[2015-11-09] MEDS: ENOXAPARIN SODIUM 40 MG/0.4 ML SYRINGE SQ SCH (20:59)
[2015-11-10] VITALS (8 sets, daily range): BP systolic 104–122; BP diastolic 69–86; PULSE 81–91; RESP 14–24; TEMP 97.2–98.4; O2SAT 96–100
[2015-11-10] MEDS: INSULIN NovoLIN REGULAR SUPPLEMENTAL SCALE SQ SCH ×3 (06:00→17:32)
[2015-11-10] MEDS: CARBIDOPA/LEVODOPA 25 MG/100 MG TAB GT SCH ×3 (06:19→21:17)
[2015-11-10] MEDS: clonazePAM 1 MG TAB PO SCH ×3 (06:19→21:18)
[2015-11-10] MEDS: HYOSCYAMINE SOLN 0.125 MG/ML 15 ML BTL PO PRN ×2 (06:20→08:03)
[2015-11-10] MEDS: CHLORHEXIDINE 0.12% (ORAL KIT) 15 ML CUP MT SCH ×2 (08:00→20:00)
[2015-11-10] MEDS: QUEtiapine FUMARATE 25 MG TAB G-TUBE SCH ×2 (08:02→21:17)
[2015-11-10] MEDS: LACTOBACILLUS ACIDOPHILUS TAB PO SCH ×3 (08:03→17:31)
[2015-11-10] MEDS: LANSOPRAZOLE SOLUTAB 30 MG TAB NG SCH (08:03)
[2015-11-10] MEDS: PARoxetine HCL 20 MG TAB G-TUBE SCH (08:03)
[2015-11-10] MEDS: predniSONE 20 MG TAB PO SCH (08:03)
[2015-11-10] MEDS: COLLAGENASE OINT 30 GM TUBE TOP SCH (08:03)
[2015-11-10] MEDS: MIDODRINE 5 MG TAB G-TUBE SCH ×2 (08:03→21:17)
[2015-11-10] MEDS: GABAPENTIN 300 MG CAP G-TUBE SCH ×2 (08:03→21:17)
[2015-11-10] MEDS: ARTIFICIAL TEARS OPTH SOLN 15 ML BTL EACH EYE SCH ×3 (08:03→17:31)
[2015-11-10] MEDS: SODIUM CHLORIDE 0.9% FLUSH 5 ML FLUSH IVF SCH ×2 (08:04→21:17)
[2015-11-10] MEDS: RESP: ALBUTEROL 2.5 MG/IPRATROPIUM 0.5 MG NEB (SCH) INH ×3 (08:54→20:04)
--- NOTE | 2015-11-10 10:23 | HHI.PR ---
Subjective Remarks Awake and on a T Bar at FIO2 30 %, and doing well.Answers some questions appropriately. Neuro status Improved. On tube feeds. at 30 CC. Has no fever. Objective Vital Signs Date Time Temp Pulse Resp B/P Pulse Ox O2 Delivery O2 Flow Rate FiO2 11/10/15 08:54 97 T-piece 5.00 21 11/10/15 04:00 96 T-Piece 28 11/10/15 04:00 81 11/10/15 04:00 97.8 81 23 107/77 96 11/10/15 00:00 90 11/10/15 00:00 96 T-Piece 28 11/10/15 00:00 98.4 90 24 104/75 96 11/09/15 20:00 96 T-Piece 11/09/15 20:00 98.0 98 24 116/82 96 11/09/15 20:00 98 11/09/15 19:45 96 T-piece 21 11/09/15 16:00 96 11/09/15 16:00 97.6 96 18 109/78 98 11/09/15 16:00 98 Trach Collar 6.00 21 T-Piece 11/09/15 12:00 98 Trach Collar 6.00 21 T-Piece 11/09/15 12:00 101 11/09/15 12:00 97.2 100 20 122/88 94 I/O 11/09/15 11/09/15 11/09/15 11/10/15 11/10/15 11/10/15 06:59 14:59 22:59 06:59 14:59 22:59 Intake Total 232 ml 465 ml 288 ml 295 ml Output Total 350 ml 450 ml 250 ml 300 ml Balance -118 ml 15 ml 38 ml -5 ml Intake Oral 0 ml IV Total 0 ml Tube Feeding 232 ml 225 ml 228 ml 235 ml Other 240 ml 60 ml 60 ml Output Urine Total 350 ml 450 ml 250 ml 300 ml # Bowel Movements 2 2 1 1 Result Diagram: 11/08/1540411/08/15404 Objective Remarks This is a thin white male who is responsive and cooperative,with a trach tube in place. HEENT: Pupils are equal and reactive to light. Throat clear CHEST:Decreased breath sounds ,with few wheezes . CARDIOVASCULAR: S1 and S2 is normal.No murmur. ABDOMEN: Soft, nondistended. BS +. He has a PEG tube in place. EXTREMITIES: No edema.muscle wasting. Decubitus +. NEURO: Lethargic , and has weak extremities .Reflexes not elicited.Skin is dry. Assessment and Plan Assessment and Plan IMPRESSION 1. Chronic Respiratory failure. 2. Sepsis, Aspiration, resolved . 3. Shock.Resolved. 4. Tracheobronchitis 5. Parkinson's disease 6. Dementia. 7. Severe Deconditioning. Plan : 1. T Bar at 28% 2. Nebs qid , duoneb. 3.Cont Tube feeds at 30 CC 4. Taper prednisone to 10 mg daily. 5. Levsin .25 mg tid for Secretions 6. Cont Trach toilet and lavage. 8. No sedation. 9. Transfer to [facility]. Darren Kiser MD Nov 10, 2015 10:23
--- NOTE | 2015-11-10 14:45 | HHI.PR ---
Subjective Remarks Patient laying in bed closed is looks comfortable, open eyes to sternal rub, no change in clinical picture Discussed with the nurse, less secretions today, pulmonary following for respiratory failure, patient is a DNR however the daughter wants aggressive treatment at this point Objective Vitals Vital Signs Date Time Temp Pulse Resp B/P Pulse Ox O2 Delivery O2 Flow Rate FiO2 11/10/15 12:00 100 Trach Collar T-Piece 11/10/15 12:00 86 11/10/15 12:00 97.2 86 14 111/69 97 11/10/15 08:54 97 T-piece 5.00 21 11/10/15 08:00 91 11/10/15 08:00 97.3 91 18 122/86 99 11/10/15 08:00 99 Trach Collar T-Piece 11/10/15 04:00 96 T-Piece 28 11/10/15 04:00 81 11/10/15 04:00 97.8 81 23 107/77 96 11/10/15 00:00 90 11/10/15 00:00 96 T-Piece 28 11/10/15 00:00 98.4 90 24 104/75 96 11/09/15 20:00 96 T-Piece 28 11/09/15 20:00 98.0 98 24 116/82 96 11/09/15 20:00 98 11/09/15 19:45 96 T-piece 21 11/09/15 16:00 96 11/09/15 16:00 97.6 96 18 109/78 98 11/09/15 16:00 98 Trach Collar 6.00 21 T-Piece I/O 11/09/15 11/09/15 11/09/15 11/10/15 11/10/15 11/10/15 07:00 15:00 23:00 07:00 15:00 23:00 Intake Total 232 ml 465 ml 288 ml 295 ml 560 ml Output Total 350 ml 450 ml 250 ml 300 ml 300 ml Balance -118 ml 15 ml 38 ml -5 ml 260 ml Intake Oral 0 ml IV Total 0 ml Tube Feeding 232 ml 225 ml 228 ml 235 ml 320 ml Other 240 ml 60 ml 60 ml 240 ml Output Urine Total 350 ml 450 ml 250 ml 300 ml 300 ml # Bowel Movements 2 2 1 1 1 Result Diagram: 10/2/16 0405 10/2/16 0405 Objective Remarks GENERAL: Cachectic, contracted patient, chronic ill-looking, in no apparent distress. CARDIOVASCULAR: Regular rate and rhythm without murmurs, gallops, or rubs. RESPIRATORY: Some crackles, but fair air entry, GASTROINTESTINAL: Abdomen soft, non-tender, nondistended. Normal active bowel sounds PEG tube in place MUSCULOSKELETAL: Lower extremity in crossover contraction , positive pedal pulses,. NEURO: Open eyes doesn't follow commands, spontaneous movement of upper or lower extremity, doesn't answer question Procedures 07/26- PEG replacement 07/29- right pigtail catheter placement for new pneumothorax Date of Insertion: Oct 05, 2015 A/P Problem List: (1) Sepsis due to urinary tract infection ICD Code: A41.9 Status: Resolved (2) Acute respiratory failure ICD Code: J96.00 Status: Resolved (3) Chronic respiratory failure ICD Code: J96.10 Status: Chronic (4) Parkinson disease ICD Code: G20 Status: Chronic (5) UTI (urinary tract infection) ICD Code: N39.0 Status: Acute (6) Encephalopathy ICD Code: G93.40 Status: Resolved Assessment and Plan Daily update & Mngmt 11/03 Discussed with the nurse, no acute issue, continue current care Record and hospital course reviewed including lab in previous intensive care notes Daily update & Mngmt 11/04 Continue current care follow with a customer experience intern, currently on T-tube Daily update & Mngmt 11/05 Continue current care, monitor temperature, O2 sat, continue following up with customer experience intern Daily update & Mngmt 11/06: 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, he is on Midrin, he also on prednisone 60 mg by mouth daily, discussed with the nurse, will discuss with pulmonary to start tapering prednisone if okay with him, will check manual blood pressure and if it's high we'll are Midodrin Appreciate palliative input, the daughter continue to requesting aggressive care despite poor prognosis Daily update & Mngmt 11/07 [facility] available next and the nurses station Daily update & Mngmt 11/08 Increased secretions no fever or leukocytosis, continue intense chest toileting , Levsin, nebulizer, on T-tube, pulmonary following Daily update & Mngmt 11/09: Continue current care, palliative care following with the daughter General A/P: 55 years old male with Parkinson's disease Cognitive disorder Chronic encephalopathy Dementia Depression Contractures On no sedation. CT head 06/18/15: diffuse atrophy unchanged. No acute intracranial findings Continue Sinemet 25/100 q8 via PEG, Seroquel 50 mg twice a day, olanzapine 5 mg a night, Klonopin 2 mg every 8 hours, Paxil 20 daily Continue Lortab when necessary pain and fentanyl patch 50 g every 3 days for pain management. Fentanyl bolus prn breakthrough pain or if needed for turning/ nursing care/etc. Acute on chronic respiratory failure Chronic trach #8 Shiley distal XLT Pneumonia, aspiration (ESBL Klebsiella and Pseudomonas pneumonia) Right pneumothorax status post pigtail catheter 2 (resolved) On T piece since 10/30 with CPAP at night. Tolerating T piece as tolerated starting 11/01 including night time. Pulmonary Dr. Restrepo following. On Prednisone 60mg daily Exchanged to 8 Distal XLT on 08/15 to facilitate suctioning, trach care. Bronchodilators ( DuoNeb) CXR 10/18, 10/26: No acute pulmonary infiltrates. History of orthostasis History of CAD History dyslipidemia History of hypertension Continue Midodrine 5 mg BID. Monitor HR and BP keep MAP>65mmHg. Chronic moderate protein energy malnutrition Dysphagia Status post PEG Internal hemorrhoids Gastroesophageal reflux disease - TF Jevity 1.5 @ 60ml/hr, on Reglan 5mg Q8 PRN for high residuals. - On Prevacid 30 mg per PEG tube daily for GERD - 10/11 KUB abdomen: PEG tube in place. Unremarkable bowel gas pattern. FEN/Renal: Nonobstructing left renal calculus - Monitor renal function, I/O's. electrolytes replacement per protocol. Aspiration pneumonia Heena UTI 10/19 Sputum: Pseudomonas- likely colonized 10/19 urine cx: Yeast species 10/12 BC: NGTD 10/11 BC: NGTD 10/11 Urine cx: C. Tropicalis 10/11 Sputum: ESBL Klebsiella and Pseudomonas pneumonia 10/10 Urine: C. Tropicalis 09/21 Urine cx: Pseudomonas ? colonized 09/19 Sputum cx: Pseudomonas, Kleb pneumonia ESBL pos Candiduria (heena tropicalis urine cx 08/17) ESBL positive Klebsiella/Pseudomonas pneumonia Stenotrophomonas in sputum 08/17 MRSA colonization Sepsis UTI Klebsiella ESBL positive (has been treated) Off abx s/p ( Merrem finished 10 day course 10/23) monitor for signs of infections ( Fever, WBC) ID service is following as needed- Dr. Enoc Moss. CXR 10/26 no acute changes. Normocytic Anemia - Monitor CBC Bilateral lower extremity Contractures Stage III sacral decubitus present on admission - Wound care and PT on case Prophylaxis - GI - Prevacid - DVT - SCDs/ Lovenox. Discharge Planning to LTC when cleared by pulmonary Jb Ervin MD Nov 10, 2015 14:45
[2015-11-10] MEDS: OLANZapine 5 MG TAB GT SCH (21:17)
[2015-11-10] MEDS: ENOXAPARIN SODIUM 40 MG/0.4 ML SYRINGE SQ SCH (21:18)
[2015-11-11] VITALS (8 sets, daily range): BP systolic 78–108; BP diastolic 49–74; PULSE 80–96; RESP 16–24; TEMP 97–98.2; O2SAT 93–100
[2015-11-11] MEDS: MORPHINE SULFATE 4 MG/ML INJ IV PUSH PRN (04:35)
[2015-11-11] MEDS: HYOSCYAMINE SOLN 0.125 MG/ML 15 ML BTL PO PRN ×2 (04:35→20:28)
[2015-11-11] MEDS: INSULIN NovoLIN REGULAR SUPPLEMENTAL SCALE SQ SCH ×4 (06:00→18:00)
[2015-11-11] MEDS: CARBIDOPA/LEVODOPA 25 MG/100 MG TAB GT SCH ×3 (06:05→21:45)
[2015-11-11] MEDS: clonazePAM 1 MG TAB PO SCH ×3 (06:05→21:45)
[2015-11-11] MEDS: GABAPENTIN 300 MG CAP G-TUBE SCH ×2 (08:13→20:29)
[2015-11-11] MEDS: LACTOBACILLUS ACIDOPHILUS TAB PO SCH ×3 (08:13→18:22)
[2015-11-11] MEDS: PARoxetine HCL 20 MG TAB G-TUBE SCH (08:13)
[2015-11-11] MEDS: LANSOPRAZOLE SOLUTAB 30 MG TAB NG SCH (08:13)
[2015-11-11] MEDS: QUEtiapine FUMARATE 25 MG TAB G-TUBE SCH ×2 (08:13→20:29)
[2015-11-11] MEDS: MIDODRINE 5 MG TAB G-TUBE SCH ×2 (08:14→20:29)
[2015-11-11] MEDS: SODIUM CHLORIDE 0.9% FLUSH 5 ML FLUSH IVF SCH ×2 (08:15→20:29)
[2015-11-11] MEDS: ARTIFICIAL TEARS OPTH SOLN 15 ML BTL EACH EYE SCH ×3 (08:15→18:22)
[2015-11-11] MEDS: predniSONE 10 MG TAB PO SCH (08:16)
[2015-11-11] MEDS: RESP: ALBUTEROL 2.5 MG/IPRATROPIUM 0.5 MG NEB (SCH) INH ×3 (08:27→19:22)
[2015-11-11] MEDS: COLLAGENASE OINT 30 GM TUBE TOP SCH (09:00)
--- NOTE | 2015-11-11 10:39 | HHI.PR ---
Subjective Remarks Pt non responsive. Barely briefly opens eyes. Per RN, he had them wide open earlier but not pt sleeping. He does withdraw to painful stimuli. Objective Vitals Vital Signs Date Time Temp Pulse Resp B/P Pulse Ox O2 Delivery O2 Flow Rate FiO2 11/11/15 08:28 97 T-piece 6.00 21 11/11/15 04:00 94 T-Piece 28 11/11/15 04:00 98.0 80 24 103/65 94 11/11/15 04:00 80 11/11/15 00:00 98.2 82 21 104/62 96 11/11/15 00:00 82 11/11/15 00:00 96 T-Piece 11/10/15 20:04 100 T-piece 21 11/10/15 20:00 98 T-Piece 28 11/10/15 20:00 88 11/10/15 20:00 97.6 88 21 111/84 98 11/10/15 16:00 97.3 86 14 104/73 99 11/10/15 16:00 98 Trach Collar T-Piece 11/10/15 16:00 86 11/10/15 12:00 100 Trach Collar T-Piece 11/10/15 12:00 86 11/10/15 12:00 97.2 86 14 111/69 97 I/O 11/10/15 11/10/15 11/10/15 11/11/15 11/11/15 11/11/15 07:00 15:00 23:00 07:00 15:00 23:00 Intake Total 295 ml 560 ml 328 ml 319 ml Output Total 300 ml 300 ml 200 ml 500 ml Balance -5 ml 260 ml 128 ml -181 ml Tube Feeding 235 ml 320 ml 228 ml 219 ml Other 60 ml 240 ml 100 ml 100 ml Output Urine Total 300 ml 300 ml 200 ml 500 ml # Bowel Movements 1 1 1 1 Result Diagram: 11/08/1540411/08/15404 Imaging Last Impressions Chest X-Ray 11/09/15 0000 Signed Impressions: Service Date/Time: Monday, November 09, 2015 10:09 - CONCLUSION: Minimal coarsening of bronchovascular markings in the retrocardiac region left lower lobe which could represent minimal early infiltrate Reyes Jewell MD Upper Extremity Ultrasound 10/13/15 0000 Signed Impressions: Service Date/Time: Tuesday, October 13, 2015 09:51 - CONCLUSION: 1. No evidence of deep venous thrombosis. John Anderson MD Abdomen X-Ray 10/12/15 0000 Signed Impressions: Service Date/Time: Monday, October 12, 2015 17:37 - CONCLUSION: 1. Gastrostomy tube in place 2. Unremarkable bowel gas pattern. Salazar Thurman MD Renal Ultrasound 10/07/15 0000 Signed Impressions: Service Date/Time: Wednesday, October 07, 2015 18:29 - CONCLUSION: 1. No acute findings. 3.6 cm left renal cyst. Putnam catheter in bladder. Amaury Ellsworth MD Tunnelled Chest Tube Removal 08/05/15 1100 Signed Impressions: Service Date/Time: Wednesday, August 05, 2015 11:00 - CONCLUSION: Uncomplicated chest tube removal. Blaine Jackson MD Chest Tube Change 07/31/15 0000 Signed Impressions: Service Date/Time: Friday, July 31, 2015 14:34 - CONCLUSION: Uncomplicated reposition of previously placed chest tube as above. Blaine Jackson MD Chest Tube Insertion 07/30/15 0000 Signed Impressions: Service Date/Time: July 14:50 - CONCLUSION: Uncomplicated chest tube placement as above. Blaine Jackson MD Catheter Change 07/27/15 0000 Signed Impressions: Service Date/Time: Monday, July 27, 2015 14:43 - CONCLUSION: Uncomplicated gastrostomy tube exchange as above. Blaine Jackson MD Chest CT 07/11/15 0000 Signed Impressions: Service Date/Time: Saturday, July 11, 2015 09:49 - CONCLUSION: Scattered patchy densities significantly improved from previous study. Tiny anterior right basilar pneumothorax. Right-sided chest tube in good position. Néstor Matamoros MD Head CT 06/18/151902 Signed Impressions: Service Date/Time: June 19:31 - CONCLUSION: Diffuse atrophy unchanged. No acute intracranial findings. Kush Briscoe MD Abdomen/Pelvis CT 06/18/151902 Signed Impressions: Service Date/Time: June 19:36 - CONCLUSION: 1. Chronic nonspecific urinary bladder wall thickening. Bladder collapsed with Putnam catheter in place. 2. Chronic bilateral mid to lower lung zone groundglass opacity. 3. Nonobstructing left renal calculus. 4. Distended rectum. Kush Briscoe MD Objective Remarks GENERAL: Cachectic, contracted patient, chronic ill-looking, in no apparent distress. appears comfortable CARDIOVASCULAR: Regular rate and rhythm without murmurs. T piece in place. RESPIRATORY: fair air entry, no wheezing GASTROINTESTINAL: Abdomen soft, non-tender, nondistended. Normal active bowel sounds PEG tube in place MUSCULOSKELETAL: Lower extremity in crossover contraction , positive pedal pulses,. NEURO: briefly Open eyes but doesn't follow commands, withdrawals of upper extremities w painful stimuli, doesn't answer question Procedures 07/26- PEG replacement 07/29- right pigtail catheter placement for new pneumothorax Date of Insertion: Oct 05, 2015 A/P Problem List: (1) Sepsis due to urinary tract infection ICD Code: A41.9 Status: Resolved (2) Acute respiratory failure ICD Code: J96.00 Status: Resolved (3) Chronic respiratory failure ICD Code: J96.10 Status: Chronic (4) Parkinson disease ICD Code: G20 Status: Chronic (5) UTI (urinary tract infection) ICD Code: N39.0 Status: Acute (6) Encephalopathy ICD Code: G93.40 Status: Resolved Assessment and Plan Daily update & Mngmt 11/03 Discussed with the nurse, no acute issue, continue current care Record and hospital course reviewed including lab in previous intensive care notes Daily update & Mngmt 11/04 Continue current care follow with a corporate tax preparer, currently on T-tube Daily update & Mngmt 11/05 Continue current care, monitor temperature, O2 sat, continue following up with corporate tax preparer Daily update & Mngmt 11/06: 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, he is on Midrin, he also on prednisone 60 mg by mouth daily, discussed with the nurse, will discuss with pulmonary to start tapering prednisone if okay with him, will check manual blood pressure and if it's high we'll are Midodrin Appreciate palliative input, the daughter continue to requesting aggressive care despite poor prognosis Daily update & Mngmt 11/07 [facility] bed available next and the nurses station Daily update & Mngmt 11/08 Increased secretions no fever or leukocytosis, continue intense chest toileting , Levsin, nebulizer, on T-tube, pulmonary following Daily update & Mngmt 11/09: Continue current care, palliative care following with the daughter Daily update & Mngmt 11/10: continue current care, no new changes per RN except that HR does go up whenever she moves him. Appreciate assistance from palliative care. They have been unable to set up an appt w daughter recently. General A/P: 55 years old male with Parkinson's disease Cognitive disorder Chronic encephalopathy Dementia Depression Contractures On no sedation. CT head 06/18/15: diffuse atrophy unchanged. No acute intracranial findings Continue Sinemet 25/100 q8 via PEG, Seroquel 50 mg twice a day, olanzapine 5 mg a night, Klonopin 2 mg every 8 hours, Paxil 20 daily Continue Lortab when necessary pain and fentanyl patch 50 g every 3 days for pain management. Fentanyl bolus prn breakthrough pain or if needed for turning/ nursing care/etc. Acute on chronic respiratory failure Chronic trach #8 Shiley distal XLT Pneumonia, aspiration (ESBL Klebsiella and Pseudomonas pneumonia) Right pneumothorax status post pigtail catheter 2 (resolved) On T piece since 10/30 with CPAP at night. Tolerating T piece as tolerated starting 11/01 including night time. Pulmonary Dr. Restrepo following. On Prednisone 10mg daily Exchanged to 8 Distal XLT on 08/15 to facilitate suctioning, trach care. Bronchodilators ( DuoNeb) CXR 10/18, 10/26: No acute pulmonary infiltrates. History of orthostasis History of CAD History dyslipidemia History of hypertension Continue Midodrine 5 mg BID. Monitor HR and BP keep MAP>65mmHg. Chronic moderate protein energy malnutrition Dysphagia Status post PEG Internal hemorrhoids Gastroesophageal reflux disease - TF Jevity 1.5 @ 60ml/hr, on Reglan 5mg Q8 PRN for high residuals. - On Prevacid 30 mg per PEG tube daily for GERD - 10/11 KUB abdomen: PEG tube in place. Unremarkable bowel gas pattern. FEN/Renal: Nonobstructing left renal calculus - Monitor renal function, I/O's. electrolytes replacement per protocol. Aspiration pneumonia Cele UTI 10/19 Sputum: Pseudomonas- likely colonized 10/19 urine cx: Yeast species 10/12 BC: NGTD 10/11 BC: NGTD 10/11 Urine cx: C. Tropicalis 10/11 Sputum: ESBL Klebsiella and Pseudomonas pneumonia 10/10 Urine: C. Tropicalis 09/21 Urine cx: Pseudomonas ? colonized 09/19 Sputum cx: Pseudomonas, Kleb pneumonia ESBL pos Candiduria (cele tropicalis urine cx 08/17) ESBL positive Klebsiella/Pseudomonas pneumonia Stenotrophomonas in sputum 08/17 MRSA colonization Sepsis UTI Klebsiella ESBL positive (has been treated) Off abx s/p ( Merrem finished 10 day course 10/23) monitor for signs of infections ( Fever, WBC) ID service is following as needed- Dr. Enoc Moss. CXR 10/26 no acute changes. Normocytic Anemia - Monitor CBC Bilateral lower extremity Contractures Stage III sacral decubitus present on admission - Wound care and PT on case Prophylaxis - GI - Prevacid - DVT - SCDs/ Lovenox. Discharge Planning to LTC when cleared by pulmonary Dory Mckeon MD Nov 11, 2015 10:39
[2015-11-11] MEDS: CHLORHEXIDINE 0.12% (ORAL KIT) 15 ML CUP MT SCH ×2 (11:47→20:28)
--- NOTE | 2015-11-11 17:08 | HHI.PR ---
Subjective Remarks Awake and lethargic, on a T Bar at FIO2 30 %,.Answers some questions appropriately. Neuro status Improved. On tube feeds. at 30 CC. Has copious secretions. Has no fever. Objective Vital Signs Date Time Temp Pulse Resp B/P Pulse Ox O2 Delivery O2 Flow Rate FiO2 11/11/15 16:00 98 T-Piece 28 11/11/15 12:00 96 T-Piece 28 11/11/15 08:28 97 T-piece 6.00 21 11/11/15 08:00 96 T-Piece 28 11/11/15 04:00 94 T-Piece 28 11/11/15 04:00 98.0 80 24 103/65 94 11/11/15 04:00 80 11/11/15 00:00 98.2 82 21 104/62 96 11/11/15 00:00 82 11/11/15 00:00 96 T-Piece 11/10/15 20:04 100 T-piece 21 11/10/15 20:00 98 T-Piece 11/10/15 20:00 88 11/10/15 20:00 97.6 88 21 111/84 98 I/O 11/10/15 11/10/15 11/10/15 11/11/15 11/11/15 11/11/15 07:00 15:00 23:00 07:00 15:00 23:00 Intake Total 295 ml 560 ml 328 ml 319 ml 357 ml Output Total 300 ml 300 ml 200 ml 500 ml 250 ml Balance -5 ml 260 ml 128 ml -181 ml 107 ml Tube Feeding 235 ml 320 ml 228 ml 219 ml 257 ml Other 60 ml 240 ml 100 ml 100 ml 100 ml Output Urine Total 300 ml 300 ml 200 ml 500 ml 250 ml # Bowel Movements 1 1 1 1 0 Result Diagram: 11/08/1540411/08/15404 Objective Remarks This is a thin white male who is responsive and cooperative,with a trach tube in place. HEENT: Pupils are equal and reactive to light. Throat secretions CHEST:Decreased breath sounds ,with few wheezes .Occ crackles on left. CARDIOVASCULAR: S1 and S2 is normal.No murmur. ABDOMEN: Soft, nondistended. BS +. He has a PEG tube in place. EXTREMITIES: No edema.muscle wasting. Decubitus +. NEURO: Lethargic , and has weak extremities .Reflexes not elicited.Skin is dry. Assessment and Plan Assessment and Plan IMPRESSION 1. Chronic Respiratory failure. 2. Sepsis, Aspiration, resolved . 3. Shock.Resolved. 4. Tracheobronchitis 5. Parkinson's disease 6. Dementia. 7. Severe Deconditioning. Plan : 1. T Bar at 28% 2. Nebs qid , duoneb. 3.Cont Tube feeds at 30 CC 4. Cont prednisone 10 mg daily. 5. Levsin .25 mg tid for Secretions 6. Cont Trach toilet and lavage. 8. No sedation. 9. Transfer to [facility]. Darren Kiser MD Nov 11, 2015 17:08
[2015-11-11] MEDS: OLANZapine 5 MG TAB GT SCH (20:30)
[2015-11-11] MEDS: ENOXAPARIN SODIUM 40 MG/0.4 ML SYRINGE SQ SCH (21:45)
[2015-11-12] VITALS (8 sets, daily range): BP systolic 104–144; BP diastolic 62–87; PULSE 70–103; RESP 20–27; TEMP 97.6–98.2; O2SAT 92–100
[2015-11-12] MEDS: clonazePAM 1 MG TAB PO SCH ×3 (05:35→20:01)
[2015-11-12] MEDS: CARBIDOPA/LEVODOPA 25 MG/100 MG TAB GT SCH ×3 (05:35→20:01)
[2015-11-12] MEDS: INSULIN NovoLIN REGULAR SUPPLEMENTAL SCALE SQ SCH ×4 (06:00→17:18)
[2015-11-12] MEDS: LANSOPRAZOLE SOLUTAB 30 MG TAB NG SCH (08:58)
[2015-11-12] MEDS: QUEtiapine FUMARATE 25 MG TAB G-TUBE SCH ×2 (08:59→20:01)
[2015-11-12] MEDS: COLLAGENASE OINT 30 GM TUBE TOP SCH (08:59)
[2015-11-12] MEDS: SODIUM CHLORIDE 0.9% FLUSH 5 ML FLUSH IVF SCH ×2 (08:59→20:02)
[2015-11-12] MEDS: GABAPENTIN 300 MG CAP G-TUBE SCH ×2 (08:59→20:01)
[2015-11-12] MEDS: predniSONE 10 MG TAB PO SCH (08:59)
[2015-11-12] MEDS: PARoxetine HCL 20 MG TAB G-TUBE SCH (08:59)
[2015-11-12] MEDS: LACTOBACILLUS ACIDOPHILUS TAB PO SCH ×3 (08:59→17:18)
[2015-11-12] MEDS: MIDODRINE 5 MG TAB G-TUBE SCH ×2 (08:59→20:01)
[2015-11-12] MEDS: ARTIFICIAL TEARS OPTH SOLN 15 ML BTL EACH EYE SCH ×3 (09:00→17:18)
[2015-11-12] MEDS: CHLORHEXIDINE 0.12% (ORAL KIT) 15 ML CUP MT SCH ×2 (09:00→20:03)
[2015-11-12] MEDS: RESP: ALBUTEROL 2.5 MG/IPRATROPIUM 0.5 MG NEB (SCH) INH ×2 (09:41→12:39)
--- NOTE | 2015-11-12 09:48 | HHI.PR ---
Subjective Remarks Pt awake this morning but non verbal. does move his right upper extremity. Objective Vitals Vital Signs Date Time Temp Pulse Resp B/P Pulse Ox O2 Delivery O2 Flow Rate FiO2 11/12/15 04:00 70 11/12/15 04:00 97.6 70 20 120/71 95 11/12/15 04:00 95 T-Piece 21 11/12/15 00:00 101 11/12/15 00:00 94 T-Piece 21 11/12/15 00:00 97.7 101 24 104/67 94 11/11/15 20:00 97.5 96 21 104/58 94 11/11/15 20:00 94 T-Piece 21 11/11/15 20:00 96 11/11/15 19:22 100 T-piece 21 11/11/15 16:00 98 T-Piece 28 11/11/15 16:00 97.0 80 22 105/56 93 11/11/15 16:00 80 11/11/15 12:00 97.9 93 19 78/49 94 11/11/15 12:00 96 T-Piece 28 11/11/15 12:00 93 I/O 11/11/15 11/11/15 11/11/15 11/12/15 11/12/15 11/12/15 07:00 15:00 23:00 07:00 15:00 23:00 Intake Total 319 ml 357 ml 311 ml 395 ml Output Total 500 ml 250 ml 350 ml 250 ml Balance -181 ml 107 ml -39 ml 145 ml Tube Feeding 219 ml 257 ml 191 ml 275 ml Other 100 ml 100 ml 120 ml 120 ml Output Urine Total 500 ml 250 ml 350 ml 250 ml # Bowel Movements 1 0 1 0 Result Diagram: 11/08/155 11/08/155 Imaging Last Impressions Chest X-Ray 11/09/15 0000 Signed Impressions: Service Date/Time: Monday, November 09, 2015 10:09 - CONCLUSION: Minimal coarsening of bronchovascular markings in the retrocardiac region left lower lobe which could represent minimal early infiltrate Reyes Jewell MD Upper Extremity Ultrasound 10/13/15 0000 Signed Impressions: Service Date/Time: Tuesday, October 13, 2015 09:51 - CONCLUSION: 1. No evidence of deep venous thrombosis. John Anderson MD Abdomen X-Ray 10/12/15 0000 Signed Impressions: Service Date/Time: Monday, October 12, 2015 17:37 - CONCLUSION: 1. Gastrostomy tube in place 2. Unremarkable bowel gas pattern. Salazar Thurman MD Renal Ultrasound 10/07/15 0000 Signed Impressions: Service Date/Time: Wednesday, October 07, 2015 18:29 - CONCLUSION: 1. No acute findings. 3.6 cm left renal cyst. Putnam catheter in bladder. Amaury Ellsworth MD Tunnelled Chest Tube Removal 08/05/15 1100 Signed Impressions: Service Date/Time: Wednesday, August 05, 2015 11:00 - CONCLUSION: Uncomplicated chest tube removal. Blaine Jackson MD Chest Tube Change 07/31/15 0000 Signed Impressions: Service Date/Time: Friday, July 31, 2015 14:34 - CONCLUSION: Uncomplicated reposition of previously placed chest tube as above. Blaine Jackson MD Chest Tube Insertion 07/30/15 0000 Signed Impressions: Service Date/Time: July 14:50 - CONCLUSION: Uncomplicated chest tube placement as above. Blaine Jackson MD Catheter Change 07/27/15 0000 Signed Impressions: Service Date/Time: Monday, July 27, 2015 14:43 - CONCLUSION: Uncomplicated gastrostomy tube exchange as above. Blaine Jackson MD Chest CT 07/11/15 0000 Signed Impressions: Service Date/Time: Saturday, July 11, 2015 09:49 - CONCLUSION: Scattered patchy densities significantly improved from previous study. Tiny anterior right basilar pneumothorax. Right-sided chest tube in good position. Néstor Matamoros MD Head CT 06/18/151902 Signed Impressions: Service Date/Time: June 19:31 - CONCLUSION: Diffuse atrophy unchanged. No acute intracranial findings. Kush Briscoe MD Abdomen/Pelvis CT 06/18/151902 Signed Impressions: Service Date/Time: June 19:36 - CONCLUSION: 1. Chronic nonspecific urinary bladder wall thickening. Bladder collapsed with Putnam catheter in place. 2. Chronic bilateral mid to lower lung zone groundglass opacity. 3. Nonobstructing left renal calculus. 4. Distended rectum. Kush Briscoe MD Objective Remarks GENERAL: Cachectic, contracted patient, chronic ill-looking, in no apparent distress. appears comfortable CARDIOVASCULAR: Regular rate and rhythm without murmurs. T piece in place. RESPIRATORY: fair air entry, no wheezing GASTROINTESTINAL: Abdomen soft, non-tender, nondistended. Normal active bowel sounds PEG tube in place MUSCULOSKELETAL: Lower extremity in crossover contraction , positive pedal pulses,. NEURO: Open eyes follows some commands, such as squeezes my hand w his right hand and moves it. Doesn't answer questions Procedures 07/26- PEG replacement 07/29- right pigtail catheter placement for new pneumothorax Date of Insertion: Oct 05, 2015 A/P Problem List: (1) Sepsis due to urinary tract infection ICD Code: A41.9 Status: Resolved (2) Acute respiratory failure ICD Code: J96.00 Status: Resolved (3) Chronic respiratory failure ICD Code: J96.10 Status: Chronic (4) Parkinson disease ICD Code: G20 Status: Chronic (5) UTI (urinary tract infection) ICD Code: N39.0 Status: Acute (6) Encephalopathy ICD Code: G93.40 Status: Resolved Assessment and Plan Daily update & Mngmt 11/03 Discussed with the nurse, no acute issue, continue current care Record and hospital course reviewed including lab in previous intensive care notes Daily update & Mngmt 11/04 Continue current care follow with a diaphragm builder, currently on T-tube Daily update & Mngmt 11/05 Continue current care, monitor temperature, O2 sat, continue following up with diaphragm builder Daily update & Mngmt 11/06: 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, he is on Midrin, he also on prednisone 60 mg by mouth daily, discussed with the nurse, will discuss with pulmonary to start tapering prednisone if okay with him, will check manual blood pressure and if it's high we'll are Midodrin Appreciate palliative input, the daughter continue to requesting aggressive care despite poor prognosis Daily update & Mngmt 11/07 In the current care transferred to [facility] floor with telemetry when bed available next and the nurses station Daily update & Mngmt 11/08 Increased secretions no fever or leukocytosis, continue intense chest toileting , Levsin, nebulizer, on T-tube, pulmonary following Daily update & Mngmt 11/09: Continue current care, palliative care following with the daughter Daily update & Mngmt 11/10: continue current care, no new changes per RN except that HR does go up whenever she moves him. Appreciate assistance from palliative care. They have been unable to set up an appt w daughter recently. Daily update & Mngmt 11/11: Continue current care, pt more alert this morning but still non verbal. no changes in management. General A/P: 55 years old male with Parkinson's disease Cognitive disorder Chronic encephalopathy Dementia Depression Contractures On no sedation. CT head 06/18/15: diffuse atrophy unchanged. No acute intracranial findings Continue Sinemet 25/100 q8 via PEG, Seroquel 50 mg twice a day, olanzapine 5 mg a night, Klonopin 2 mg every 8 hours, Paxil 20 daily Continue Lortab when necessary pain and fentanyl patch 50 g every 3 days for pain management. Fentanyl bolus prn breakthrough pain or if needed for turning/ nursing care/etc. Acute on chronic respiratory failure Chronic trach #8 Shiley distal XLT Pneumonia, aspiration (ESBL Klebsiella and Pseudomonas pneumonia) Right pneumothorax status post pigtail catheter 2 (resolved) On T piece since 10/30 with CPAP at night. Tolerating T piece as tolerated starting 11/01 including night time. Pulmonary Dr. Restrepo following. On Prednisone 10mg daily Exchanged to 8 Distal XLT on 08/15 to facilitate suctioning, trach care. Bronchodilators ( DuoNeb) CXR 10/18, 10/26: No acute pulmonary infiltrates. History of orthostasis History of CAD History dyslipidemia History of hypertension Continue Midodrine 5 mg BID. Monitor HR and BP keep MAP>65mmHg. Chronic moderate protein energy malnutrition Dysphagia Status post PEG Internal hemorrhoids Gastroesophageal reflux disease - TF Jevity 1.5 @ 60ml/hr, on Reglan 5mg Q8 PRN for high residuals. - On Prevacid 30 mg per PEG tube daily for GERD - 10/11 KUB abdomen: PEG tube in place. Unremarkable bowel gas pattern. FEN/Renal: Nonobstructing left renal calculus - Monitor renal function, I/O's. electrolytes replacement per protocol. Aspiration pneumonia Cele UTI 10/19 Sputum: Pseudomonas- likely colonized 10/19 urine cx: Yeast species 10/12 BC: NGTD 10/11 BC: NGTD 10/11 Urine cx: C. Tropicalis 10/11 Sputum: ESBL Klebsiella and Pseudomonas pneumonia 10/10 Urine: C. Tropicalis 09/21 Urine cx: Pseudomonas ? colonized 09/19 Sputum cx: Pseudomonas, Kleb pneumonia ESBL pos Candiduria (cele tropicalis urine cx 08/17) ESBL positive Klebsiella/Pseudomonas pneumonia Stenotrophomonas in sputum 08/17 MRSA colonization Sepsis UTI Klebsiella ESBL positive (has been treated) Off abx s/p ( Merrem finished 10 day course 10/23) monitor for signs of infections ( Fever, WBC) ID service is following as needed- Dr. Enoc Moss. CXR 10/26 no acute changes. Normocytic Anemia - Monitor CBC Bilateral lower extremity Contractures Stage III sacral decubitus present on admission - Wound care and PT on case Prophylaxis - GI - Prevacid - DVT - SCDs/ Lovenox. Discharge Planning to LTC when cleared by pulmonary Dory Mckeon MD Nov 12, 2015 09:48
--- NOTE | 2015-11-12 11:09 | HHI.PR ---
Subjective Remarks Awake and responds to commands, on a T Bar at FIO2 21 %,.Answers some questions appropriately. On tube feeds. at 30 CC. Has less copious secretions. Has no fever. Objective Vital Signs Date Time Temp Pulse Resp B/P Pulse Ox O2 Delivery O2 Flow Rate FiO2 11/12/15 09:41 96 T-piece 21 11/12/15 08:00 91 11/12/15 08:00 T-Piece 6.00 21 11/12/15 08:00 97.9 90 27 144/87 99 11/12/15 04:00 70 11/12/15 04:00 97.6 70 20 120/71 95 11/12/15 04:00 95 T-Piece 21 11/12/15 00:00 101 11/12/15 00:00 94 T-Piece 21 11/12/15 00:00 97.7 101 24 104/67 94 11/11/15 20:00 97.5 96 21 104/58 94 11/11/15 20:00 94 T-Piece 21 11/11/15 20:00 96 11/11/15 19:22 100 T-piece 21 11/11/15 16:00 98 T-Piece 28 11/11/15 16:00 97.0 80 22 105/56 93 11/11/15 16:00 80 11/11/15 12:00 97.9 93 19 78/49 94 11/11/15 12:00 96 T-Piece 28 11/11/15 12:00 93 I/O 11/11/15 11/11/15 11/11/15 11/12/15 11/12/15 11/12/15 07:00 15:00 23:00 07:00 15:00 23:00 Intake Total 319 ml 357 ml 311 ml 395 ml Output Total 500 ml 250 ml 350 ml 250 ml Balance -181 ml 107 ml -39 ml 145 ml Tube Feeding 219 ml 257 ml 191 ml 275 ml Other 100 ml 100 ml 120 ml 120 ml Output Urine Total 500 ml 250 ml 350 ml 250 ml # Bowel Movements 1 0 1 0 Result Diagram: 11/08/1540411/08/15404 Objective Remarks This is a thin white male who is responsive and cooperative,with a trach tube in place. HEENT: Pupils are equal and reactive to light. Throat secretions CHEST:Decreased breath sounds ,with no wheezes .Occ crackles on left. CARDIOVASCULAR: S1 and S2 is normal.No murmur. ABDOMEN: Soft, nondistended. BS +. He has a PEG tube in place. EXTREMITIES: No edema.muscle wasting. Decubitus +. NEURO: Lethargic , and has weak extremities .Reflexes not elicited.Skin is dry. Assessment and Plan Assessment and Plan IMPRESSION 1. Chronic Respiratory failure. 2. Sepsis, Aspiration, resolved . 3. Shock.Resolved. 4. Tracheobronchitis 5. Parkinson's disease 6. Dementia. 7. Severe Deconditioning. Plan : 1. T Bar at 21% 2. Nebs qid , duoneb. 3.Cont Tube feeds at 30 CC 4. Cont prednisone 10 mg daily. 5. Levsin .25 mg tid for Secretions 6. Cont Trach toilet and lavage. 8. Labs monday 9. Transfer to [facility]. Darren Kiser MD Nov 12, 2015 11:09
[2015-11-12] MEDS: OLANZapine 5 MG TAB GT SCH (20:01)
[2015-11-12] MEDS: ENOXAPARIN SODIUM 40 MG/0.4 ML SYRINGE SQ SCH (20:02)
[2015-11-12] MEDS: SODIUM CHLORIDE 0.9% FLUSH 5 ML FLUSH IVF PRN (20:17)
[2015-11-13] VITALS (9 sets, daily range): BP systolic 123–151; BP diastolic 77–90; PULSE 74–101; RESP 19–27; TEMP 97.4–98.3; O2SAT 94–99
[2015-11-13] MEDS: SODIUM CHLORIDE 0.9% FLUSH 5 ML FLUSH IVF PRN (04:05)
[2015-11-13] MEDS: INSULIN NovoLIN REGULAR SUPPLEMENTAL SCALE SQ SCH ×5 (05:47→23:59)
[2015-11-13] MEDS: clonazePAM 1 MG TAB PO SCH ×3 (05:47→20:34)
[2015-11-13] MEDS: CARBIDOPA/LEVODOPA 25 MG/100 MG TAB GT SCH ×3 (05:47→20:34)
[2015-11-13] MEDS: LACTOBACILLUS ACIDOPHILUS TAB PO SCH ×3 (07:26→17:59)
[2015-11-13] MEDS: MIDODRINE 5 MG TAB G-TUBE SCH ×2 (07:26→20:35)
[2015-11-13] MEDS: GABAPENTIN 300 MG CAP G-TUBE SCH ×2 (07:26→20:34)
[2015-11-13] MEDS: PARoxetine HCL 20 MG TAB G-TUBE SCH (07:26)
[2015-11-13] MEDS: QUEtiapine FUMARATE 25 MG TAB G-TUBE SCH ×2 (07:26→20:35)
[2015-11-13] MEDS: LANSOPRAZOLE SOLUTAB 30 MG TAB NG SCH (07:26)
[2015-11-13] MEDS: predniSONE 10 MG TAB PO SCH (07:26)
[2015-11-13] MEDS: CHLORHEXIDINE 0.12% (ORAL KIT) 15 ML CUP MT SCH ×2 (07:27→20:35)
[2015-11-13] MEDS: ARTIFICIAL TEARS OPTH SOLN 15 ML BTL EACH EYE SCH ×3 (07:27→17:59)
[2015-11-13] MEDS: COLLAGENASE OINT 30 GM TUBE TOP SCH (07:29)
[2015-11-13] MEDS: SODIUM CHLORIDE 0.9% FLUSH 5 ML FLUSH IVF SCH ×2 (07:29→20:35)
--- NOTE | 2015-11-13 10:19 | HHI.PR ---
Subjective Remarks eyes open but non verbal, does shake no when I ask him one question Objective Vitals Vital Signs Date Time Temp Pulse Resp B/P Pulse Ox O2 Delivery O2 Flow Rate FiO2 11/13/15 09:21 94 T-piece 6.00 21 11/13/15 08:00 T-Piece 6.00 21 11/13/15 08:00 88 11/13/15 08:00 98.1 88 20 138/87 94 11/13/15 04:00 98 T-Piece 21 11/13/15 04:00 98.2 80 22 125/79 97 11/13/15 04:00 101 11/13/15 00:00 97.6 83 25 135/82 97 11/13/15 00:00 97 T-Piece 11/13/15 00:00 83 11/12/15 21:03 95 T-piece 11/12/15 20:00 97.6 103 27 129/82 92 11/12/15 20:00 92 T-Piece 21 11/12/15 20:00 103 11/12/15 16:00 98.2 95 24 116/73 96 11/12/15 16:00 97 11/12/15 16:00 T-Piece 6.00 21 11/12/15 12:00 97.7 100 25 117/62 100 11/12/15 12:00 97 11/12/15 12:00 T-Piece 6.00 21 I/O 11/12/15 11/12/15 11/12/15 11/13/15 11/13/15 11/13/15 07:02 15:02 23:02 07:02 15:02 23:02 Intake Total 395 ml 257 ml 259 ml 239 ml Output Total 250 ml 150 ml 500 ml 225 ml Balance 145 ml 107 ml -241 ml 14 ml IV Total 0 ml Tube Feeding 275 ml 257 ml 259 ml 239 ml Other 120 ml Output Urine Total 250 ml 150 ml 500 ml 225 ml # Bowel Movements 0 0 0 Imaging Last Impressions Chest X-Ray 11/09/15 0000 Signed Impressions: Service Date/Time: Monday, November 09, 2015 10:09 - CONCLUSION: Minimal coarsening of bronchovascular markings in the retrocardiac region left lower lobe which could represent minimal early infiltrate Reyes Jewell MD Upper Extremity Ultrasound 10/13/15 0000 Signed Impressions: Service Date/Time: Tuesday, October 13, 2015 09:51 - CONCLUSION: 1. No evidence of deep venous thrombosis. John Anderson MD Abdomen X-Ray 10/12/15 0000 Signed Impressions: Service Date/Time: Monday, October 12, 2015 17:37 - CONCLUSION: 1. Gastrostomy tube in place 2. Unremarkable bowel gas pattern. Salazar Thurman MD Renal Ultrasound 10/07/15 0000 Signed Impressions: Service Date/Time: Wednesday, October 07, 2015 18:29 - CONCLUSION: 1. No acute findings. 3.6 cm left renal cyst. Putnam catheter in bladder. Amaury Ellsworth MD Tunnelled Chest Tube Removal 08/05/15 1100 Signed Impressions: Service Date/Time: Wednesday, August 05, 2015 11:00 - CONCLUSION: Uncomplicated chest tube removal. Blaine Jackson MD Chest Tube Change 07/31/15 0000 Signed Impressions: Service Date/Time: Friday, July 31, 2015 14:34 - CONCLUSION: Uncomplicated reposition of previously placed chest tube as above. Blaine Jackson MD Chest Tube Insertion 07/30/15 0000 Signed Impressions: Service Date/Time: July 14:50 - CONCLUSION: Uncomplicated chest tube placement as above. Blaine Jackson MD Catheter Change 07/27/15 0000 Signed Impressions: Service Date/Time: Monday, July 27, 2015 14:43 - CONCLUSION: Uncomplicated gastrostomy tube exchange as above. Blaine Jackson MD Chest CT 07/11/15 0000 Signed Impressions: Service Date/Time: Saturday, July 11, 2015 09:49 - CONCLUSION: Scattered patchy densities significantly improved from previous study. Tiny anterior right basilar pneumothorax. Right-sided chest tube in good position. Néstor Matamoros MD Head CT 06/18/151902 Signed Impressions: Service Date/Time: June 19:31 - CONCLUSION: Diffuse atrophy unchanged. No acute intracranial findings. Kush Briscoe MD Abdomen/Pelvis CT 06/18/151902 Signed Impressions: Service Date/Time: June 19:36 - CONCLUSION: 1. Chronic nonspecific urinary bladder wall thickening. Bladder collapsed with Putnam catheter in place. 2. Chronic bilateral mid to lower lung zone groundglass opacity. 3. Nonobstructing left renal calculus. 4. Distended rectum. Kush Briscoe MD Objective Remarks GENERAL: Cachectic, contracted patient, chronic ill-looking, in no apparent distress. appears comfortable CARDIOVASCULAR: Regular rate and rhythm without murmurs. T piece in place. RESPIRATORY: fair air entry, no wheezing GASTROINTESTINAL: Abdomen soft, non-tender, nondistended. Normal active bowel sounds PEG tube in place MUSCULOSKELETAL: Lower extremity in crossover contraction , positive pedal pulses,. NEURO: Open eyes follows some commands. Doesn't answer questions Procedures 07/26- PEG replacement 07/29- right pigtail catheter placement for new pneumothorax Date of Insertion: Oct 05, 2015 A/P Problem List: (1) Sepsis due to urinary tract infection ICD Code: A41.9 Status: Resolved (2) Acute respiratory failure ICD Code: J96.00 Status: Resolved (3) Chronic respiratory failure ICD Code: J96.10 Status: Chronic (4) Parkinson disease ICD Code: G20 Status: Chronic (5) UTI (urinary tract infection) ICD Code: N39.0 Status: Acute (6) Encephalopathy ICD Code: G93.40 Status: Resolved Assessment and Plan Daily update & Mngmt 11/03 Discussed with the nurse, no acute issue, continue current care Record and hospital course reviewed including lab in previous intensive care notes Daily update & Mngmt 11/04 Continue current care follow with a barrel handler, currently on T-tube Daily update & Mngmt 11/05 Continue current care, monitor temperature, O2 sat, continue following up with barrel handler Daily update & Mngmt 11/06: 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, he is on Midrin, he also on prednisone 60 mg by mouth daily, discussed with the nurse, will discuss with pulmonary to start tapering prednisone if okay with him, will check manual blood pressure and if it's high we'll are Midodrin Appreciate palliative input, the daughter continue to requesting aggressive care despite poor prognosis Daily update & Mngmt 11/07 In the current [facility] with telemetry when bed available next and the nurses station Daily update & Mngmt 11/08 Increased secretions no fever or leukocytosis, continue intense chest toileting , Levsin, nebulizer, on T-tube, pulmonary following Daily update & Mngmt 11/09: Continue current care, palliative care following with the daughter Daily update & Mngmt 11/10: continue current care, no new changes per RN except that HR does go up whenever she moves him. Appreciate assistance from palliative care. They have been unable to set up an appt w daughter recently. Daily update & Mngmt 11/11: Continue current care, pt more alert this morning but still non verbal. no changes in management. Daily update & Mngmt 11/12 no change in current management. General A/P: 55 years old male with Parkinson's disease Cognitive disorder Chronic encephalopathy Dementia Depression Contractures On no sedation. CT head 06/18/15: diffuse atrophy unchanged. No acute intracranial findings Continue Sinemet 25/100 q8 via PEG, Seroquel 50 mg twice a day, olanzapine 5 mg a night, Klonopin 2 mg every 8 hours, Paxil 20 daily Continue Lortab when necessary pain and fentanyl patch 50 g every 3 days for pain management. Fentanyl bolus prn breakthrough pain or if needed for turning/ nursing care/etc. Acute on chronic respiratory failure Chronic trach #8 Shiley distal XLT Pneumonia, aspiration (ESBL Klebsiella and Pseudomonas pneumonia) Right pneumothorax status post pigtail catheter 2 (resolved) On T piece since 10/30 with CPAP at night. Tolerating T piece as tolerated starting 11/01 including night time. Pulmonary Dr. Restrepo following. On Prednisone 10mg daily Exchanged to 8 Distal XLT on 08/15 to facilitate suctioning, trach care. Bronchodilators ( DuoNeb) CXR 10/18, 10/26: No acute pulmonary infiltrates. History of orthostasis History of CAD History dyslipidemia History of hypertension Continue Midodrine 5 mg BID. Monitor HR and BP keep MAP>65mmHg. Chronic moderate protein energy malnutrition Dysphagia Status post PEG Internal hemorrhoids Gastroesophageal reflux disease - TF Jevity 1.5 @ 60ml/hr, on Reglan 5mg Q8 PRN for high residuals. - On Prevacid 30 mg per PEG tube daily for GERD - 10/11 KUB abdomen: PEG tube in place. Unremarkable bowel gas pattern. FEN/Renal: Nonobstructing left renal calculus - Monitor renal function, I/O's. electrolytes replacement per protocol. Aspiration pneumonia Cele UTI 10/19 Sputum: Pseudomonas- likely colonized 10/19 urine cx: Yeast species 10/12 BC: NGTD 10/11 BC: NGTD 10/11 Urine cx: C. Tropicalis 10/11 Sputum: ESBL Klebsiella and Pseudomonas pneumonia 10/10 Urine: C. Tropicalis 09/21 Urine cx: Pseudomonas ? colonized 09/19 Sputum cx: Pseudomonas, Kleb pneumonia ESBL pos Candiduria (cele tropicalis urine cx 08/17) ESBL positive Klebsiella/Pseudomonas pneumonia Stenotrophomonas in sputum 08/17 MRSA colonization Sepsis UTI Klebsiella ESBL positive (has been treated) Off abx s/p ( Merrem finished 10 day course 10/23) monitor for signs of infections ( Fever, WBC) ID service is following as needed- Dr. Enoc Moss. CXR 10/26 no acute changes. Normocytic Anemia - Monitor CBC Bilateral lower extremity Contractures Stage III sacral decubitus present on admission - Wound care and PT on case Prophylaxis - GI - Prevacid - DVT - SCDs/ Lovenox. Discharge Planning to LTC when cleared by pulmonary Dory Mckeon MD Nov 13, 2015 10:19
[2015-11-13] MEDS: ENOXAPARIN SODIUM 40 MG/0.4 ML SYRINGE SQ SCH (20:34)
[2015-11-13] MEDS: OLANZapine 5 MG TAB GT SCH (20:35)
[2015-11-14] VITALS (7 sets, daily range): BP systolic 109–154; BP diastolic 62–95; PULSE 70–88; RESP 18–38; TEMP 97.6–98.3; O2SAT 91–98
[2015-11-14] MEDS: INSULIN NovoLIN REGULAR SUPPLEMENTAL SCALE SQ SCH ×3 (05:16→18:29)
[2015-11-14] MEDS: CARBIDOPA/LEVODOPA 25 MG/100 MG TAB GT SCH ×3 (05:16→22:48)
[2015-11-14] MEDS: clonazePAM 1 MG TAB PO SCH ×3 (05:16→22:48)
[2015-11-14] MEDS: CHLORHEXIDINE 0.12% (ORAL KIT) 15 ML CUP MT SCH ×2 (08:57→20:49)
[2015-11-14] MEDS: predniSONE 10 MG TAB PO SCH (08:58)
[2015-11-14] MEDS: QUEtiapine FUMARATE 25 MG TAB G-TUBE SCH ×2 (08:58→20:48)
[2015-11-14] MEDS: LANSOPRAZOLE SOLUTAB 30 MG TAB NG SCH (08:58)
[2015-11-14] MEDS: GABAPENTIN 300 MG CAP G-TUBE SCH ×2 (08:58→20:48)
[2015-11-14] MEDS: MIDODRINE 5 MG TAB G-TUBE SCH ×2 (08:58→20:49)
[2015-11-14] MEDS: LACTOBACILLUS ACIDOPHILUS TAB PO SCH ×3 (08:58→18:28)
[2015-11-14] MEDS: ARTIFICIAL TEARS OPTH SOLN 15 ML BTL EACH EYE SCH ×3 (08:58→18:29)
[2015-11-14] MEDS: SODIUM CHLORIDE 0.9% FLUSH 5 ML FLUSH IVF SCH ×2 (08:59→20:49)
[2015-11-14] MEDS: COLLAGENASE OINT 30 GM TUBE TOP SCH (08:59)
[2015-11-14] MEDS: PARoxetine HCL 20 MG TAB G-TUBE SCH (08:59)
--- NOTE | 2015-11-14 10:03 | HHI.PR ---
Subjective Remarks no new changes. pt has his eyes open but is non verbal Objective Vitals Vital Signs Date Time Temp Pulse Resp B/P Pulse Ox O2 Delivery O2 Flow Rate FiO2 11/14/15 04:00 84 11/14/15 04:00 96 T-Piece 21 11/14/15 04:00 98.0 87 32 124/64 96 11/14/15 00:00 94 T-Piece 21 11/14/15 00:00 83 11/14/15 00:00 98.0 83 19 109/65 94 11/13/15 20:46 95 T-piece 21 11/13/15 20:00 98.3 93 26 151/90 96 11/13/15 20:00 93 11/13/15 20:00 96 T-Piece 21 11/13/15 16:00 83 11/13/15 16:00 97.4 84 27 133/88 98 11/13/15 16:00 T-Piece 6.00 21 11/13/15 12:00 76 11/13/15 12:00 98.1 74 19 123/77 99 11/13/15 12:00 T-Piece 6.00 21 I/O 11/13/15 11/13/15 11/13/15 11/14/15 11/14/15 11/14/15 07:00 15:00 23:00 07:00 15:00 23:00 Intake Total 239 ml 285 ml 295 ml 231 ml Output Total 225 ml 250 ml 250 ml 125 ml Balance 14 ml 35 ml 45 ml 106 ml IV Total 0 ml Tube Feeding 239 ml 285 ml 295 ml 231 ml Output Urine Total 225 ml 250 ml 250 ml 125 ml # Bowel Movements 0 0 1 Imaging Last Impressions Chest X-Ray 11/09/15 0000 Signed Impressions: Service Date/Time: Monday, November 09, 2015 10:09 - CONCLUSION: Minimal coarsening of bronchovascular markings in the retrocardiac region left lower lobe which could represent minimal early infiltrate Reyes Jewell MD Upper Extremity Ultrasound 10/13/15 0000 Signed Impressions: Service Date/Time: Tuesday, October 13, 2015 09:51 - CONCLUSION: 1. No evidence of deep venous thrombosis. John Anderson MD Abdomen X-Ray 10/12/15 0000 Signed Impressions: Service Date/Time: Monday, October 12, 2015 17:37 - CONCLUSION: 1. Gastrostomy tube in place 2. Unremarkable bowel gas pattern. Salazar Thurman MD Renal Ultrasound 10/07/15 0000 Signed Impressions: Service Date/Time: Wednesday, October 07, 2015 18:29 - CONCLUSION: 1. No acute findings. 3.6 cm left renal cyst. Putnam catheter in bladder. Amaury Ellsworth MD Tunnelled Chest Tube Removal 08/05/15 1100 Signed Impressions: Service Date/Time: Wednesday, August 05, 2015 11:00 - CONCLUSION: Uncomplicated chest tube removal. Blaine Jackson MD Chest Tube Change 07/31/15 0000 Signed Impressions: Service Date/Time: Friday, July 31, 2015 14:34 - CONCLUSION: Uncomplicated reposition of previously placed chest tube as above. Blaine Jackson MD Chest Tube Insertion 07/30/15 0000 Signed Impressions: Service Date/Time: July 14:50 - CONCLUSION: Uncomplicated chest tube placement as above. Blaine Jackson MD Catheter Change 07/27/15 0000 Signed Impressions: Service Date/Time: Monday, July 27, 2015 14:43 - CONCLUSION: Uncomplicated gastrostomy tube exchange as above. Blaine Jackson MD Chest CT 07/11/15 0000 Signed Impressions: Service Date/Time: Saturday, July 11, 2015 09:49 - CONCLUSION: Scattered patchy densities significantly improved from previous study. Tiny anterior right basilar pneumothorax. Right-sided chest tube in good position. Néstor Matamoros MD Head CT 06/18/151902 Signed Impressions: Service Date/Time: June 19:31 - CONCLUSION: Diffuse atrophy unchanged. No acute intracranial findings. Kush Briscoe MD Abdomen/Pelvis CT 06/18/151902 Signed Impressions: Service Date/Time: June 19:36 - CONCLUSION: 1. Chronic nonspecific urinary bladder wall thickening. Bladder collapsed with Putnam catheter in place. 2. Chronic bilateral mid to lower lung zone groundglass opacity. 3. Nonobstructing left renal calculus. 4. Distended rectum. Kush Briscoe MD Objective Remarks GENERAL: Cachectic, contracted patient, chronic ill-looking, in no apparent distress. appears comfortable CARDIOVASCULAR: Regular rate and rhythm without murmurs. T piece in place. RESPIRATORY: fair air entry, no wheezing GASTROINTESTINAL: Abdomen soft, non-tender, nondistended. Normal active bowel sounds PEG tube in place MUSCULOSKELETAL: Lower extremity in crossover contraction , positive pedal pulses,. NEURO: eyes are open. Doesn't answer questions, mouth open Procedures 07/26- PEG replacement 07/29- right pigtail catheter placement for new pneumothorax Date of Insertion: Oct 05, 2015 A/P Problem List: (1) Sepsis due to urinary tract infection ICD Code: A41.9 Status: Resolved (2) Acute respiratory failure ICD Code: J96.00 Status: Resolved (3) Chronic respiratory failure ICD Code: J96.10 Status: Chronic (4) Parkinson disease ICD Code: G20 Status: Chronic (5) UTI (urinary tract infection) ICD Code: N39.0 Status: Acute (6) Encephalopathy ICD Code: G93.40 Status: Resolved Assessment and Plan Daily update & Mngmt 11/03 Discussed with the nurse, no acute issue, continue current care Record and hospital course reviewed including lab in previous intensive care notes Daily update & Mngmt 11/04 Continue current care follow with a chicken sexer, currently on T-tube Daily update & Mngmt 11/05 Continue current care, monitor temperature, O2 sat, continue following up with chicken sexer Daily update & Mngmt 11/06: 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, he is on Midrin, he also on prednisone 60 mg by mouth daily, discussed with the nurse, will discuss with pulmonary to start tapering prednisone if okay with him, will check manual blood pressure and if it's high we'll are Midodrin Appreciate palliative input, the daughter continue to requesting aggressive care despite poor prognosis Daily update & Mngmt 11/07 In the current care transferred to [facility] floor with telemetry when bed available next and the nurses station Daily update & Mngmt 11/08 Increased secretions no fever or leukocytosis, continue intense chest toileting , Levsin, nebulizer, on T-tube, pulmonary following Daily update & Mngmt 11/09: Continue current care, palliative care following with the daughter Daily update & Mngmt 11/10: continue current care, no new changes per RN except that HR does go up whenever she moves him. Appreciate assistance from palliative care. They have been unable to set up an appt w daughter recently. Daily update & Mngmt 11/11: Continue current care, pt more alert this morning but still non verbal. no changes in management. Daily update & Mngmt 11/12 no change in current management. Daily update & Mngmt 11/13 no changes in current management General A/P: 55 years old male with Parkinson's disease Cognitive disorder Chronic encephalopathy Dementia Depression Contractures On no sedation. CT head 06/18/15: diffuse atrophy unchanged. No acute intracranial findings Continue Sinemet 25/100 q8 via PEG, Seroquel 50 mg twice a day, olanzapine 5 mg a night, Klonopin 2 mg every 8 hours, Paxil 20 daily Continue Lortab when necessary pain and fentanyl patch 50 g every 3 days for pain management. Fentanyl bolus prn breakthrough pain or if needed for turning/ nursing care/etc. Acute on chronic respiratory failure Chronic trach #8 Shiley distal XLT Pneumonia, aspiration (ESBL Klebsiella and Pseudomonas pneumonia) Right pneumothorax status post pigtail catheter 2 (resolved) On T piece since 10/30 with CPAP at night. Tolerating T piece as tolerated starting 11/01 including night time. Pulmonary Dr. Restrepo following. On Prednisone 10mg daily Exchanged to 8 Distal XLT on 08/15 to facilitate suctioning, trach care. Bronchodilators ( DuoNeb) CXR 10/18, 10/26: No acute pulmonary infiltrates. History of orthostasis History of CAD History dyslipidemia History of hypertension Continue Midodrine 5 mg BID. Monitor HR and BP keep MAP>65mmHg. Chronic moderate protein energy malnutrition Dysphagia Status post PEG Internal hemorrhoids Gastroesophageal reflux disease - TF Jevity 1.5 @ 60ml/hr, on Reglan 5mg Q8 PRN for high residuals. - On Prevacid 30 mg per PEG tube daily for GERD - 10/11 KUB abdomen: PEG tube in place. Unremarkable bowel gas pattern. FEN/Renal: Nonobstructing left renal calculus - Monitor renal function, I/O's. electrolytes replacement per protocol. Aspiration pneumonia Cele UTI 10/19 Sputum: Pseudomonas- likely colonized 10/19 urine cx: Yeast species 10/12 BC: NGTD 10/11 BC: NGTD 10/11 Urine cx: C. Tropicalis 10/11 Sputum: ESBL Klebsiella and Pseudomonas pneumonia 10/10 Urine: C. Tropicalis 09/21 Urine cx: Pseudomonas ? colonized 09/19 Sputum cx: Pseudomonas, Kleb pneumonia ESBL pos Candiduria (cele tropicalis urine cx 08/17) ESBL positive Klebsiella/Pseudomonas pneumonia Stenotrophomonas in sputum 08/17 MRSA colonization Sepsis UTI Klebsiella ESBL positive (has been treated) Off abx s/p ( Merrem finished 10 day course 10/23) monitor for signs of infections ( Fever, WBC) ID service is following as needed- Dr. Enoc Moss. CXR 10/26 no acute changes. Normocytic Anemia - Monitor CBC Bilateral lower extremity Contractures Stage III sacral decubitus present on admission - Wound care and PT on case Prophylaxis - GI - Prevacid - DVT - SCDs/ Lovenox. Discharge Planning to LTC when cleared by pulmonary Dory Mckeon MD Nov 14, 2015 10:03 Dory Mckeon MD Nov 14, 2015 10:03
--- NOTE | 2015-11-14 18:06 | HHI.PR ---
Subjective Remarks Awake and responds to commands, on a T Bar at FIO2 21 %,.Answers some questions appropriately. On tube feeds. at 40 CC. Has no fever. Objective Vital Signs Date Time Temp Pulse Resp B/P Pulse Ox O2 Delivery O2 Flow Rate FiO2 11/14/15 16:00 98 T-Piece 21 11/14/15 16:00 82 11/14/15 16:00 97.6 82 38 144/87 98 11/14/15 12:00 70 11/14/15 12:00 91 T-Piece 21 11/14/15 12:00 98.1 70 18 117/62 91 11/14/15 08:00 98.3 88 30 127/79 98 11/14/15 08:00 98 T-Piece 21 11/14/15 08:00 88 11/14/15 04:00 84 11/14/15 04:00 96 T-Piece 21 11/14/15 04:00 98.0 87 32 124/64 96 11/14/15 00:00 94 T-Piece 21 11/14/15 00:00 83 11/14/15 00:00 98.0 83 19 109/65 94 11/13/15 20:46 95 T-piece 21 11/13/15 20:00 98.3 93 26 151/90 96 11/13/15 20:00 93 11/13/15 20:00 96 T-Piece 21 I/O 11/13/15 11/13/15 11/13/15 11/14/15 11/14/15 11/14/15 07:00 15:00 23:00 07:00 15:00 23:00 Intake Total 239 ml 285 ml 295 ml 231 ml 315 ml Output Total 225 ml 250 ml 250 ml 125 ml 225 ml Balance 14 ml 35 ml 45 ml 106 ml 90 ml IV Total 0 ml 0 ml Tube Feeding 239 ml 285 ml 295 ml 231 ml 315 ml Output Urine Total 225 ml 250 ml 250 ml 125 ml 225 ml # Bowel Movements 0 0 1 2 Objective Remarks This is a thin white male who is responsive and cooperative,with a trach tube in place. HEENT: Pupils are equal and reactive to light. No Throat secretions CHEST:Decreased breath sounds ,with occ wheezes .Occ crackles on left. CARDIOVASCULAR: S1 and S2 is normal.No murmur. ABDOMEN: Soft, nondistended. BS +. He has a PEG tube in place. EXTREMITIES: No edema.muscle wasting. NEURO: Lethargic , and has weak extremities, but moves arms. .Reflexes not elicited.Skin is dry. Assessment and Plan Assessment and Plan IMPRESSION 1. Chronic Respiratory failure. 2. Sepsis, Aspiration, resolved . 3. Shock.Resolved. 4. Tracheobronchitis 5. Parkinson's disease 6. Dementia. 7. Severe Deconditioning. Plan : 1. T Bar at 21% all the time 2. Nebs qid , duoneb. 3.Cont Tube feeds at 40 CC 4. Cont prednisone 7.5 mg daily. 5. Levsin .25 mg tid for Secretions 6. Cont Trach toilet and lavage. 8. Labs monday 9. Transfer to [facility]. Darren Kiser MD Nov 14, 2015 18:06
[2015-11-14] MEDS: ACETAMINOPHEN/HYDROcodone 325 MG/5 MG TAB PO PRN (20:48)
[2015-11-14] MEDS: OLANZapine 5 MG TAB GT SCH (20:48)
[2015-11-14] MEDS: ENOXAPARIN SODIUM 40 MG/0.4 ML SYRINGE SQ SCH (22:49)
[2015-11-15] VITALS (8 sets, daily range): BP systolic 102–162; BP diastolic 57–94; PULSE 73–88; RESP 17–24; TEMP 97.1–97.9; O2SAT 92–100
[2015-11-15 00:03] LABS: C. DIFF EPI 027 PRESUMPTIVE POSITIVE (NEGATIVE)
[2015-11-15 00:06] LABS: C. DIFF TOXIN PCR POSITIVE (NEGATIVE)
[2015-11-15] MEDS: MORPHINE SULFATE 4 MG/ML INJ IV PUSH PRN (03:16)
[2015-11-15] MEDS: CARBIDOPA/LEVODOPA 25 MG/100 MG TAB GT SCH ×3 (05:51→21:46)
[2015-11-15] MEDS: INSULIN NovoLIN REGULAR SUPPLEMENTAL SCALE SQ SCH ×5 (05:51→23:23)
[2015-11-15] MEDS: clonazePAM 1 MG TAB PO SCH ×3 (05:51→21:45)
[2015-11-15] MEDS: MIDODRINE 5 MG TAB G-TUBE SCH ×3 (09:16→23:20)
[2015-11-15] MEDS: LANSOPRAZOLE SOLUTAB 30 MG TAB NG SCH (09:16)
[2015-11-15] MEDS: CHLORHEXIDINE 0.12% (ORAL KIT) 15 ML CUP MT SCH ×2 (09:16→20:00)
[2015-11-15] MEDS: predniSONE 10 MG TAB PO SCH (09:16)
[2015-11-15] MEDS: PARoxetine HCL 20 MG TAB G-TUBE SCH (09:16)
[2015-11-15] MEDS: LACTOBACILLUS ACIDOPHILUS TAB PO SCH ×3 (09:16→18:23)
[2015-11-15] MEDS: ARTIFICIAL TEARS OPTH SOLN 15 ML BTL EACH EYE SCH ×3 (09:16→18:23)
[2015-11-15] MEDS: GABAPENTIN 300 MG CAP G-TUBE SCH ×2 (09:17→21:46)
[2015-11-15] MEDS: SODIUM CHLORIDE 0.9% FLUSH 5 ML FLUSH IVF SCH ×2 (09:17→21:00)
[2015-11-15] MEDS: QUEtiapine FUMARATE 25 MG TAB G-TUBE SCH ×2 (09:17→21:45)
[2015-11-15] MEDS: COLLAGENASE OINT 30 GM TUBE TOP SCH (09:18)
--- NOTE | 2015-11-15 09:45 | HHI.PR ---
Subjective Remarks Pt moves right arm but non verbal per RN pt was more interactive this morning. BP's are improved and wonders if dose of midodrine can be lowered. Pt positive for C. Diff virulent strain. Objective Vitals Vital Signs Date Time Temp Pulse Resp B/P Pulse Ox O2 Delivery O2 Flow Rate FiO2 11/15/15 04:00 97.5 85 22 150/94 95 11/15/15 04:00 92 T-Piece 11/15/15 04:00 85 11/15/15 03:21 18 11/15/15 00:00 85 11/15/15 00:00 92 T-Piece 21 11/15/15 00:00 97.5 85 22 104/71 92 11/14/15 21:48 16 11/14/15 20:00 84 11/14/15 20:00 95 T-Piece 21 11/14/15 20:00 98.3 84 28 154/95 95 11/14/15 16:00 98 T-Piece 11/14/15 16:00 82 11/14/15 16:00 97.6 82 38 144/87 98 11/14/15 12:00 70 11/14/15 12:00 91 T-Piece 21 11/14/15 12:00 98.1 70 18 117/62 91 11/14/15 09:55 94 T-piece 5.00 21 I/O 11/14/15 11/14/15 11/14/15 11/15/15 11/15/15 11/15/15 07:00 15:00 23:00 07:00 15:00 23:00 Intake Total 231 ml 315 ml 370 ml 470 ml Output Total 125 ml 225 ml 350 ml 150 ml Balance 106 ml 90 ml 20 ml 320 ml Intake Oral 0 ml IV Total 0 ml 0 ml 0 ml Tube Feeding 231 ml 315 ml 310 ml 410 ml Other 60 ml 60 ml Output Urine Total 125 ml 225 ml 350 ml 150 ml Tube Feeding Residual Discard 0 ml 0 ml # Bowel Movements 1 2 2 3 Imaging Last Impressions Chest X-Ray 11/09/15 0000 Signed Impressions: Service Date/Time: Monday, November 09, 2015 10:09 - CONCLUSION: Minimal coarsening of bronchovascular markings in the retrocardiac region left lower lobe which could represent minimal early infiltrate Reyes Jewell MD Upper Extremity Ultrasound 10/13/15 0000 Signed Impressions: Service Date/Time: Tuesday, October 13, 2015 09:51 - CONCLUSION: 1. No evidence of deep venous thrombosis. John Anderson MD Abdomen X-Ray 10/12/15 0000 Signed Impressions: Service Date/Time: Monday, October 12, 2015 17:37 - CONCLUSION: 1. Gastrostomy tube in place 2. Unremarkable bowel gas pattern. Salazar Thurman MD Renal Ultrasound 10/07/15 0000 Signed Impressions: Service Date/Time: Wednesday, October 07, 2015 18:29 - CONCLUSION: 1. No acute findings. 3.6 cm left renal cyst. Putnam catheter in bladder. Amaury Ellsworth MD Tunnelled Chest Tube Removal 08/05/15 1100 Signed Impressions: Service Date/Time: Wednesday, August 05, 2015 11:00 - CONCLUSION: Uncomplicated chest tube removal. Blaine Jackson MD Chest Tube Change 07/31/15 0000 Signed Impressions: Service Date/Time: Friday, July 31, 2015 14:34 - CONCLUSION: Uncomplicated reposition of previously placed chest tube as above. Blaine Jackson MD Chest Tube Insertion 07/30/15 0000 Signed Impressions: Service Date/Time: July 14:50 - CONCLUSION: Uncomplicated chest tube placement as above. Blaine Jackson MD Catheter Change 07/27/15 0000 Signed Impressions: Service Date/Time: Monday, July 27, 2015 14:43 - CONCLUSION: Uncomplicated gastrostomy tube exchange as above. Blaine Jackson MD Chest CT 07/11/15 0000 Signed Impressions: Service Date/Time: Saturday, July 11, 2015 09:49 - CONCLUSION: Scattered patchy densities significantly improved from previous study. Tiny anterior right basilar pneumothorax. Right-sided chest tube in good position. Néstor Matamoros MD Head CT 06/18/151902 Signed Impressions: Service Date/Time: June 19:31 - CONCLUSION: Diffuse atrophy unchanged. No acute intracranial findings. Kush Briscoe MD Abdomen/Pelvis CT 06/18/151902 Signed Impressions: Service Date/Time: June 19:36 - CONCLUSION: 1. Chronic nonspecific urinary bladder wall thickening. Bladder collapsed with Putnam catheter in place. 2. Chronic bilateral mid to lower lung zone groundglass opacity. 3. Nonobstructing left renal calculus. 4. Distended rectum. Kush Briscoe MD Objective Remarks GENERAL: Cachectic, contracted patient, chronic ill-looking, in no apparent distress. appears comfortable CARDIOVASCULAR: Regular rate and rhythm without murmurs. T piece in place. RESPIRATORY: fair air entry, no wheezing GASTROINTESTINAL: Abdomen soft, non-tender, nondistended. Normal active bowel sounds PEG tube in place MUSCULOSKELETAL: Lower extremity in crossover contraction , positive pedal pulses,. NEURO: eyes are open. Doesn't answer questions, moves right arm Procedures 07/26- PEG replacement 07/29- right pigtail catheter placement for new pneumothorax Date of Insertion: Oct 05, 2015 A/P Problem List: (1) Sepsis due to urinary tract infection ICD Code: A41.9 Status: Resolved (2) Acute respiratory failure ICD Code: J96.00 Status: Resolved (3) Chronic respiratory failure ICD Code: J96.10 Status: Chronic (4) Parkinson disease ICD Code: G20 Status: Chronic (5) UTI (urinary tract infection) ICD Code: N39.0 Status: Acute (6) Encephalopathy ICD Code: G93.40 Status: Resolved Assessment and Plan Daily update & Mngmt 11/03 Discussed with the nurse, no acute issue, continue current care Record and hospital course reviewed including lab in previous intensive care notes Daily update & Mngmt 11/04 Continue current care follow with a project consultant, currently on T-tube Daily update & Mngmt 11/05 Continue current care, monitor temperature, O2 sat, continue following up with project consultant Daily update & Mngmt 11/06: 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, he is on Midrin, he also on prednisone 60 mg by mouth daily, discussed with the nurse, will discuss with pulmonary to start tapering prednisone if okay with him, will check manual blood pressure and if it's high we'll are Midodrin Appreciate palliative input, the daughter continue to requesting aggressive care despite poor prognosis Daily update & Mngmt 11/07 In the current care transferred to [facility] floor with telemetry when bed available next and the nurses station Daily update & Mngmt 11/08 Increased secretions no fever or leukocytosis, continue intense chest toileting , Levsin, nebulizer, on T-tube, pulmonary following Daily update & Mngmt 11/09: Continue current care, palliative care following with the daughter Daily update & Mngmt 11/10: continue current care, no new changes per RN except that HR does go up whenever she moves him. Appreciate assistance from palliative care. They have been unable to set up an appt w daughter recently. Daily update & Mngmt 11/11: Continue current care, pt more alert this morning but still non verbal. no changes in management. Daily update & Mngmt 11/12 no change in current management. Daily update & Mngmt 11/13 no changes in current management Daily update & Mngmt 11/14 New finding of C. Diff virulent strain. consult ID, start on po vanco. decreased dose of midodrine to 2.5mg po BID as BPs do get elevated at times. General A/P: 55 years old male with Parkinson's disease Cognitive disorder Chronic encephalopathy Dementia Depression Contractures On no sedation. CT head 06/18/15: diffuse atrophy unchanged. No acute intracranial findings Continue Sinemet 25/100 q8 via PEG, Seroquel 50 mg twice a day, olanzapine 5 mg a night, Klonopin 2 mg every 8 hours, Paxil 20 daily Continue Lortab when necessary pain and fentanyl patch 50 g every 3 days for pain management. Fentanyl bolus prn breakthrough pain or if needed for turning/ nursing care/etc. Acute on chronic respiratory failure Chronic trach #8 Shiley distal XLT Pneumonia, aspiration (ESBL Klebsiella and Pseudomonas pneumonia) Right pneumothorax status post pigtail catheter 2 (resolved) On T piece since 10/30 with CPAP at night. Tolerating T piece as tolerated starting 11/01 including night time. Pulmonary Dr. Restrepo following. On Prednisone 10mg daily Exchanged to 8 Distal XLT on 08/15 to facilitate suctioning, trach care. Bronchodilators ( DuoNeb) CXR 10/18, 10/26: No acute pulmonary infiltrates. History of orthostasis History of CAD History dyslipidemia History of hypertension Decrease Midodrine 2.5 mg BID. Monitor HR and BP keep MAP>65mmHg. Chronic moderate protein energy malnutrition Dysphagia Status post PEG Internal hemorrhoids Gastroesophageal reflux disease - TF Jevity 1.5 @ 60ml/hr, on Reglan 5mg Q8 PRN for high residuals. - On Prevacid 30 mg per PEG tube daily for GERD - 10/11 KUB abdomen: PEG tube in place. Unremarkable bowel gas pattern. FEN/Renal: Nonobstructing left renal calculus - Monitor renal function, I/O's. electrolytes replacement per protocol. Aspiration pneumonia Cele UTI 10/19 Sputum: Pseudomonas- likely colonized 10/19 urine cx: Yeast species 10/12 BC: NGTD 10/11 BC: NGTD 10/11 Urine cx: C. Tropicalis 10/11 Sputum: ESBL Klebsiella and Pseudomonas pneumonia 10/10 Urine: C. Tropicalis 09/21 Urine cx: Pseudomonas ? colonized 09/19 Sputum cx: Pseudomonas, Kleb pneumonia ESBL pos Candiduria (cele tropicalis urine cx 08/17) ESBL positive Klebsiella/Pseudomonas pneumonia Stenotrophomonas in sputum 08/17 MRSA colonization Sepsis UTI Klebsiella ESBL positive (has been treated) C. Diff 027 Off abx s/p ( Merrem finished 10 day course 10/23) monitor for signs of infections ( Fever, WBC) ID service is following as needed- Dr. Enoc Moss. CXR 10/26 no acute changes. vanco po for C. Diff started Normocytic Anemia - Monitor CBC Bilateral lower extremity Contractures Stage III sacral decubitus present on admission - Wound care and PT on case Prophylaxis - GI - Prevacid - DVT - SCDs/ Lovenox. Discharge Planning Transfer order to floor available. d/c to LTC when cleared by Dory Lugo MD Nov 15, 2015 09:45
[2015-11-15] MEDS: VANCOMYCIN 500 MG VIAL (FOR ORAL USE ONLY) PO SCH ×3 (13:34→21:47)
--- NOTE | 2015-11-15 14:36 | HHI.PR ---
Subjective Remarks Seems comfortable and on a T Bar at FIO2 21 %,.Answers some questions appropriately. On tube feeds. at 35 CC. Mild trach secretions Has no fever. Objective Vital Signs Date Time Temp Pulse Resp B/P Pulse Ox O2 Delivery O2 Flow Rate FiO2 11/15/15 09:04 95 T-piece 5.00 21 11/15/15 08:00 97.1 75 18 102/64 96 11/15/15 08:00 93 T-Piece 21 11/15/15 08:00 75 11/15/15 04:00 97.5 85 22 150/94 95 11/15/15 04:00 92 T-Piece 11/15/15 04:00 85 11/15/15 03:21 18 11/15/15 00:00 85 11/15/15 00:00 92 T-Piece 11/15/15 00:00 97.5 85 22 104/71 92 11/14/15 21:48 16 11/14/15 20:00 84 11/14/15 20:00 95 T-Piece 11/14/15 20:00 98.3 84 28 154/95 95 11/14/15 16:00 98 T-Piece 11/14/15 16:00 82 11/14/15 16:00 97.6 82 38 144/87 98 I/O 11/14/15 11/14/15 11/14/15 11/15/15 11/15/15 11/15/15 07:00 15:00 23:00 07:00 15:00 23:00 Intake Total 231 ml 315 ml 370 ml 470 ml Output Total 125 ml 225 ml 350 ml 150 ml Balance 106 ml 90 ml 20 ml 320 ml Intake Oral 0 ml IV Total 0 ml 0 ml 0 ml Tube Feeding 231 ml 315 ml 310 ml 410 ml Other 60 ml 60 ml Output Urine Total 125 ml 225 ml 350 ml 150 ml Tube Feeding Residual Discard 0 ml 0 ml # Bowel Movements 1 2 2 3 Objective Remarks This is a thin white male who is responsive and cooperative,with a trach tube in place. HEENT: Pupils are equal and reactive to light. No Throat secretions CHEST:Decreased breath sounds and Occ crackles on left. CARDIOVASCULAR: S1 and S2 is normal.No murmur. ABDOMEN: Soft, nondistended. BS +. He has a PEG tube in place. EXTREMITIES: No edema.muscle wasting. NEURO: Lethargic , and has weak extremities, but moves arms. .Reflexes not elicited.Skin is dry. Assessment and Plan Assessment and Plan IMPRESSION 1. Chronic Respiratory failure. 2. Sepsis, Aspiration, resolved . 3. Shock.Resolved. 4. Tracheobronchitis 5. Parkinson's disease 6. Dementia. 7. Severe Deconditioning. Plan : 1. T Bar at 21% all the time 2. Nebs qid , duoneb. 3.Cont Tube feeds at 40 CC 4. Cont prednisone 7.5 mg daily. 5. Levsin .25 mg tid for Secretions 6. Cont Trach toilet and lavage. 8. Labs in am. 9. Transfer to [facility]. Darren Kiser MD Nov 15, 2015 14:36
[2015-11-15] MEDS: ENOXAPARIN SODIUM 40 MG/0.4 ML SYRINGE SQ SCH (21:46)
[2015-11-15] MEDS: OLANZapine 5 MG TAB GT SCH (21:46)
[2015-11-16] VITALS (9 sets, daily range): BP systolic 123–163; BP diastolic 76–96; PULSE 75–92; RESP 4–29; TEMP 97–98.7; O2SAT 92–96
[2015-11-16] MEDS: INSULIN NovoLIN REGULAR SUPPLEMENTAL SCALE SQ SCH ×4 (05:54→23:57)
[2015-11-16] MEDS: clonazePAM 1 MG TAB PO SCH ×3 (05:54→21:11)
[2015-11-16] MEDS: CARBIDOPA/LEVODOPA 25 MG/100 MG TAB GT SCH ×3 (05:54→21:10)
[2015-11-16 07:53] LABS: BICARBONATE 29.9 MEQ/L (21.0-32.0); POTASSIUM 4.9 MEQ/L (3.5-5.1)
[2015-11-16 08:07] LABS: MEAN CELL VOLUME 83.7 FL (80.0-100.0); MEAN CORPUSCULAR HEMOGLOBIN 28.2 PG (27.0-34.0); MEAN CORPUSCULAR HGB CONC 33.7 % (32.0-36.0); PLATELET COUNT 220 TH/MM3 (150-450); RED BLOOD COUNT 5.01 MIL/MM3 (4.50-5.90); RED CELL DISTRIBUTION WIDTH 17.8 % (11.6-17.2); WHITE BLOOD COUNT 11.3 TH/MM3 (4.0-11.0)
[2015-11-16] MEDS: CHLORHEXIDINE 0.12% (ORAL KIT) 15 ML CUP MT SCH ×2 (08:18→21:11)
[2015-11-16] MEDS: QUEtiapine FUMARATE 25 MG TAB G-TUBE SCH ×2 (08:18→21:10)
[2015-11-16] MEDS: GABAPENTIN 300 MG CAP G-TUBE SCH ×2 (08:18→21:10)
[2015-11-16] MEDS: ARTIFICIAL TEARS OPTH SOLN 15 ML BTL EACH EYE SCH ×3 (08:18→17:06)
[2015-11-16] MEDS: predniSONE 10 MG TAB PO SCH (08:19)
[2015-11-16] MEDS: MIDODRINE 5 MG TAB G-TUBE SCH ×2 (08:19→21:11)
[2015-11-16] MEDS: COLLAGENASE OINT 30 GM TUBE TOP SCH (08:19)
[2015-11-16] MEDS: LACTOBACILLUS ACIDOPHILUS TAB PO SCH ×3 (08:19→17:06)
[2015-11-16] MEDS: SODIUM CHLORIDE 0.9% FLUSH 5 ML FLUSH IVF SCH ×2 (08:19→21:12)
[2015-11-16] MEDS: PARoxetine HCL 20 MG TAB G-TUBE SCH (08:19)
[2015-11-16] MEDS: VANCOMYCIN 500 MG VIAL (FOR ORAL USE ONLY) PO SCH (08:19)
[2015-11-16] MEDS: LANSOPRAZOLE SOLUTAB 30 MG TAB NG SCH (08:19)
[2015-11-16 08:47] LABS: HEMO FLAGS AUTO DIFF
[2015-11-16 08:51] LABS: BANDS 2 % (0-6); EOSINOPHILS 2 % (0-4); METAMYELOCYTES 2 % (0-1); NEUTROPHIL # MANUAL DIFF 7.7 TH/MM3 (1.8-7.7); POLYS (SEG NEUTROPHILS) 64 % (16-70); WBC DIFF SAMPLE 100
[2015-11-16 08:52] LABS: PLATELET ESTIMATE SMEAR NORMAL (NORMAL); PLATELET MORPHOLOGY CLUMPED (NORMAL); SCAN/DIFF FINAL DIFF MANUAL
--- NOTE | 2015-11-16 09:06 | HHI.IDPN ---
Subjective Subjective Remarks Chart reviewed. Patient known to me. ID was reconsulted for positive Cdiff. Overnight events reviewed. Temps ok. Bp ok. Urine output ok. resp secretions small, mehta to clear at times. No rash No diarrhea Antibiotics Vanco oral Lines Peripheral IV with no e/o infection Past Medical History reviewed Allergies: Coded Allergies: *MDRO Multi-Drug Resistant Organism (Verified Adverse Reaction, Unknown, ) ESBL E. coli (urine) - 02/19/2015; ESBL K. 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 Vital Signs Date Time Temp Pulse Resp B/P Pulse Ox O2 Delivery O2 Flow Rate FiO2 11/16/15 04:00 98.7 77 24 123/80 94 11/16/15 04:00 77 11/16/15 04:00 93 T-Piece 11/16/15 00:00 93 T-Piece 11/16/15 00:00 98.4 91 24 132/76 93 11/16/15 00:00 91 11/15/15 20:30 100 T-piece 11/15/15 20:00 95 T-Piece 11/15/15 20:00 97.9 88 24 162/93 98 11/15/15 20:00 85 11/15/15 16:00 98 T-Piece 11/15/15 16:00 81 11/15/15 16:00 97.4 73 17 102/57 98 11/15/15 12:00 73 11/15/15 12:00 97.4 73 17 102/57 98 11/15/15 12:00 98 T-Piece 11/15/15 09:04 95 T-piece 5.00 21 11/15/15 11/15/15 11/16/15 14:59 22:59 06:59 Intake Total 365 ml 333 ml 314 ml Output Total 250 ml 225 ml 175 ml Balance 115 ml 108 ml 139 ml Intake Oral 0 ml IV Total 0 ml Tube Feeding 305 ml 273 ml 254 ml Other 60 ml 60 ml 60 ml Output Urine Total 250 ml 225 ml 175 ml # Bowel Movements 2 1 1 . Laboratory Tests Test 11/16/15 07:10 White Blood Count 11.3 TH/MM3 Red Blood Count 5.01 MIL/MM3 Hemoglobin 14.2 GM/DL Hematocrit 42.0 % Mean Corpuscular Volume 83.7 FL Mean Corpuscular Hemoglobin 28.2 PG Mean Corpuscular Hemoglobin 33.7 % Concent Red Cell Distribution Width 17.8 % Platelet Count 220 TH/MM3 Mean Platelet Volume 10.6 FL Neutrophils (%) (Auto) % Lymphocytes (%) (Auto) % Monocytes (%) (Auto) % Eosinophils (%) (Auto) % Basophils (%) (Auto) % Neutrophils # (Auto) TH/MM3 Lymphocytes # (Auto) TH/MM3 Monocytes # (Auto) TH/MM3 Eosinophils # (Auto) TH/MM3 Basophils # (Auto) TH/MM3 CBC Comment AUTO DIFF Differential Total Cells 100 Counted Neutrophils % (Manual) 64 % Band Neutrophils % 2 % Lymphocytes % 27 % Monocytes % 3 % Eosinophils % 2 % Neutrophils # (Manual) 7.7 TH/MM3 Metamyelocytes 2 % Differential Comment FINAL DIFF MANUAL Atypical Lymphocytes % Platelet Estimate NORMAL Platelet Morphology Comment CLUMPED Red Cell Morphology Comment NORMAL Hematology Comments Laboratory Tests Test 11/16/15 07:10 Sodium Level 140 MEQ/L Potassium Level 4.9 MEQ/L Chloride Level 101 MEQ/L Carbon Dioxide Level 29.9 MEQ/L Anion Gap 9 MEQ/L Blood Urea Nitrogen 16 MG/DL Creatinine 0.59 MG/DL Estimat Glomerular Filtration 144 ML/MIN Rate Random Glucose 101 MG/DL Calcium Level 9.3 MG/DL Microbiology Date/Time Procedure Status Source Growth 11/14/15 10:01 Cancelled Stool Stool Imaging Chest X-Ray 10/05/15 0000 Signed Impressions: Service Date/Time: Monday, October 05, 2015 19:56 - CONCLUSION: Hyperinflation with no acute cardiopulmonary process. Scott Goode MD Chest X-Ray 09/25/15 0000 Signed Impressions: Service Date/Time: Friday, September 25, 2015 09:28 - CONCLUSION: No acute disease. Tai Taylor Jr., MD Abdomen X-Ray 09/21/15 0000 Signed Impressions: Service Date/Time: Monday, September 21, 2015 11:31 - CONCLUSION: Normal bowel gas pattern. Tai Taylor Jr., MD Tunnelled Chest Tube Removal 08/05/15 1100 Signed Impressions: Service Date/Time: Wednesday, August 05, 2015 11:00 - CONCLUSION: Uncomplicated chest tube removal. Blaine Jackson MD Chest Tube Change 07/31/15 0000 Signed Impressions: Service Date/Time: Friday, July 31, 2015 14:34 - CONCLUSION: Uncomplicated reposition of previously placed chest tube as above. Blaine Jackson MD Chest Tube Insertion 07/30/15 0000 Signed Impressions: Service Date/Time: July 14:50 - CONCLUSION: Uncomplicated chest tube placement as above. Blaine Jackson MD Catheter Change 07/27/15 0000 Signed Impressions: Service Date/Time: Monday, July 27, 2015 14:43 - CONCLUSION: Uncomplicated gastrostomy tube exchange as above. Blaine Jackson MD Chest CT 07/11/15 0000 Signed Impressions: Service Date/Time: Saturday, July 11, 2015 09:49 - CONCLUSION: Scattered patchy densities significantly improved from previous study. Tiny anterior right basilar pneumothorax. Right-sided chest tube in good position. Néstor Matamoros MD Head CT 06/18/151902 Signed Impressions: Service Date/Time: June 19:31 - CONCLUSION: Diffuse atrophy unchanged. No acute intracranial findings. Kush Briscoe MD Abdomen/Pelvis CT 06/18/151902 Signed Impressions: Service Date/Time: June 19:36 - CONCLUSION: 1. Chronic nonspecific urinary bladder wall thickening. Bladder collapsed with Putnam catheter in place. 2. Chronic bilateral mid to lower lung zone groundglass opacity. 3. Nonobstructing left renal calculus. 4. Distended rectum. Kush Briscoe MD Physical Exam GENERAL: eyes closed, No interaction SKIN: No generalized rash. Cool and dry. HEENT: Devol conjunctivae, no icterus, moist mucosa NECK: Trach site looks ok. RESPIRATORY: decreased at the bases. GASTROINTESTINAL: Abdomen soft, non-tender, not distended. No hepatosplenomegaly PEG tube site clean, no evidence of infection. MUSCULOSKELETAL: No cyanosis No pedal edema. Contracted all 4 extremities. NEUROLOGICAL: Keeping his eyes closed, contractures of the extremities, no interaction. Peripheral IV line sites with no evidence of infection. ; Putnam in place, urine looks clear Assessment & Plan Remarks Diarrhea reported off and on 2 days back: History of PSAE ESBL cath associated UTI. S/P Rx Leukocytosis, resolved Chronic respiratory failure on trach PSAE and ESBL Kleb in sputum in recent past. Chronic encephalopathy with underlying diagnosis of advanced dementia as well as advanced Parkinson's disease. Status post trach Status post gastrostomy tube with no evidence of infection. Stage II sacral decubitus ulcer present on admission. Recommendations D/w and RN: no diarrhea. Stools are pasty. DC oral Vanco. Ok to restart Vanco if clinical signs of infection or watery diarrhea (unformed stools) Will sign off please call back if any change in clinical condition or questions. Trina Moss MD Nov 16, 2015 09:05
--- NOTE | 2015-11-16 09:31 | HHI.PR ---
Subjective Remarks no changes. Pt asleep and briefly opens eyes but then closes them. non verbal Objective Vitals Vital Signs Date Time Temp Pulse Resp B/P Pulse Ox O2 Delivery O2 Flow Rate FiO2 11/16/15 04:00 98.7 77 24 123/80 94 11/16/15 04:00 77 11/16/15 04:00 93 T-Piece 21 11/16/15 00:00 93 T-Piece 21 11/16/15 00:00 98.4 91 24 132/76 93 11/16/15 00:00 91 11/15/15 20:30 100 T-piece 21 11/15/15 20:00 95 T-Piece 21 11/15/15 20:00 97.9 88 24 162/93 98 11/15/15 20:00 85 11/15/15 16:00 98 T-Piece 21 11/15/15 16:00 81 11/15/15 16:00 97.4 73 17 102/57 98 11/15/15 12:00 73 11/15/15 12:00 97.4 73 17 102/57 98 11/15/15 12:00 98 T-Piece 21 I/O 11/15/15 11/15/15 11/15/15 11/16/15 11/16/15 11/16/15 07:00 15:00 23:00 07:00 15:00 23:00 Intake Total 470 ml 365 ml 333 ml 314 ml Output Total 150 ml 250 ml 225 ml 175 ml Balance 320 ml 115 ml 108 ml 139 ml Intake Oral 0 ml 0 ml IV Total 0 ml 0 ml Tube Feeding 410 ml 305 ml 273 ml 254 ml Other 60 ml 60 ml 60 ml 60 ml Output Urine Total 150 ml 250 ml 225 ml 175 ml Tube Feeding Residual Discard 0 ml # Bowel Movements 3 2 1 1 Result Diagram: 11/16/15 0710 11/16/15 0710 Imaging Last Impressions Chest X-Ray 11/09/15 0000 Signed Impressions: Service Date/Time: Monday, November 09, 2015 10:09 - CONCLUSION: Minimal coarsening of bronchovascular markings in the retrocardiac region left lower lobe which could represent minimal early infiltrate Reyes Jewell MD Upper Extremity Ultrasound 10/13/15 0000 Signed Impressions: Service Date/Time: Tuesday, October 13, 2015 09:51 - CONCLUSION: 1. No evidence of deep venous thrombosis. John Anderson MD Abdomen X-Ray 10/12/15 0000 Signed Impressions: Service Date/Time: Monday, October 12, 2015 17:37 - CONCLUSION: 1. Gastrostomy tube in place 2. Unremarkable bowel gas pattern. Salazar Thurman MD Renal Ultrasound 10/07/15 0000 Signed Impressions: Service Date/Time: Wednesday, October 07, 2015 18:29 - CONCLUSION: 1. No acute findings. 3.6 cm left renal cyst. Putnam catheter in bladder. Amaury Ellsworth MD Tunnelled Chest Tube Removal 08/05/15 1100 Signed Impressions: Service Date/Time: Wednesday, August 05, 2015 11:00 - CONCLUSION: Uncomplicated chest tube removal. Blaine Jackson MD Chest Tube Change 07/31/15 0000 Signed Impressions: Service Date/Time: Friday, July 31, 2015 14:34 - CONCLUSION: Uncomplicated reposition of previously placed chest tube as above. Blaine Jackson MD Chest Tube Insertion 07/30/15 0000 Signed Impressions: Service Date/Time: July 14:50 - CONCLUSION: Uncomplicated chest tube placement as above. Blaine Jackson MD Catheter Change 07/27/15 0000 Signed Impressions: Service Date/Time: Monday, July 27, 2015 14:43 - CONCLUSION: Uncomplicated gastrostomy tube exchange as above. Blaine Jackson MD Chest CT 07/11/15 0000 Signed Impressions: Service Date/Time: Saturday, July 11, 2015 09:49 - CONCLUSION: Scattered patchy densities significantly improved from previous study. Tiny anterior right basilar pneumothorax. Right-sided chest tube in good position. Néstor Matamoros MD Head CT 06/18/151902 Signed Impressions: Service Date/Time: June 19:31 - CONCLUSION: Diffuse atrophy unchanged. No acute intracranial findings. Kush Briscoe MD Abdomen/Pelvis CT 06/18/151902 Signed Impressions: Service Date/Time: June 19:36 - CONCLUSION: 1. Chronic nonspecific urinary bladder wall thickening. Bladder collapsed with Putnam catheter in place. 2. Chronic bilateral mid to lower lung zone groundglass opacity. 3. Nonobstructing left renal calculus. 4. Distended rectum. Kush Briscoe MD Objective Remarks GENERAL: Cachectic, contracted patient, chronic ill-looking, in no apparent distress. appears comfortable CARDIOVASCULAR: Regular rate and rhythm without murmurs. T piece in place. RESPIRATORY: fair air entry, no wheezing GASTROINTESTINAL: Abdomen soft, non-tender, nondistended. Normal active bowel sounds PEG tube in place MUSCULOSKELETAL: Lower extremity in crossover contraction , positive pedal pulses,. NEURO: briefly opens eyes. Doesn't answer questions Procedures 07/26- PEG replacement 07/29- right pigtail catheter placement for new pneumothorax Date of Insertion: Oct 05, 2015 A/P Problem List: (1) Sepsis due to urinary tract infection ICD Code: A41.9 Status: Resolved (2) Acute respiratory failure ICD Code: J96.00 Status: Resolved (3) Chronic respiratory failure ICD Code: J96.10 Status: Chronic (4) Parkinson disease ICD Code: G20 Status: Chronic (5) UTI (urinary tract infection) ICD Code: N39.0 Status: Acute (6) Encephalopathy ICD Code: G93.40 Status: Resolved Assessment and Plan Daily update & Mngmt 11/03 Discussed with the nurse, no acute issue, continue current care Record and hospital course reviewed including lab in previous intensive care notes Daily update & Mngmt 11/04 Continue current care follow with a white kid buffer, currently on T-tube Daily update & Mngmt 11/05 Continue current care, monitor temperature, O2 sat, continue following up with white kid buffer Daily update & Mngmt 11/06: 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, he is on Midrin, he also on prednisone 60 mg by mouth daily, discussed with the nurse, will discuss with pulmonary to start tapering prednisone if okay with him, will check manual blood pressure and if it's high we'll are Midodrin Appreciate palliative input, the daughter continue to requesting aggressive care despite poor prognosis Daily update & Mngmt 11/07 In the current care [facility] with telemetry when bed available next and the nurses station Daily update & Mngmt 11/08 Increased secretions no fever or leukocytosis, continue intense chest toileting , Levsin, nebulizer, on T-tube, pulmonary following Daily update & Mngmt 11/09: Continue current care, palliative care following with the daughter Daily update & Mngmt 11/10: continue current care, no new changes per RN except that HR does go up whenever she moves him. Appreciate assistance from palliative care. They have been unable to set up an appt w daughter recently. Daily update & Mngmt 11/11: Continue current care, pt more alert this morning but still non verbal. no changes in management. Daily update & Mngmt 11/12 no change in current management. Daily update & Mngmt 11/13 no changes in current management Daily update & Mngmt 11/14 New finding of C. Diff virulent strain. consult ID, start on po vanco. decreased dose of midodrine to 2.5mg po BID as BPs do get elevated at times. Daily update & Mngmt 11/[address] Moss, pt is clinically stable. Since stools are pasty, for now d/c vanco and Ok to restart if clinical signs of infection or watery diarrhea (unformed stools) General A/P: 55 years old male with Parkinson's disease Cognitive disorder Chronic encephalopathy Dementia Depression Contractures On no sedation. CT head 06/18/15: diffuse atrophy unchanged. No acute intracranial findings Continue Sinemet 25/100 q8 via PEG, Seroquel 50 mg twice a day, olanzapine 5 mg a night, Klonopin 2 mg every 8 hours, Paxil 20 daily Continue Lortab when necessary pain and fentanyl patch 50 g every 3 days for pain management. Fentanyl bolus prn breakthrough pain or if needed for turning/ nursing care/etc. Acute on chronic respiratory failure Chronic trach #8 Shiley distal XLT Pneumonia, aspiration (ESBL Klebsiella and Pseudomonas pneumonia) Right pneumothorax status post pigtail catheter 2 (resolved) On T piece since 10/30 with CPAP at night. Tolerating T piece as tolerated starting 11/[address] time. Pulmonary Dr. Restrepo following. On Prednisone 10mg daily Exchanged to 8 Distal XLT on 08/15 to facilitate suctioning, trach care. Bronchodilators ( DuoNeb) CXR 10/18, 10/26: No acute pulmonary infiltrates. History of orthostasis History of CAD History dyslipidemia History of hypertension Decrease Midodrine 2.5 mg BID. Monitor HR and BP keep MAP>65mmHg. Chronic moderate protein energy malnutrition Dysphagia Status post PEG Internal hemorrhoids Gastroesophageal reflux disease - TF Jevity 1.5 @ 60ml/hr, on Reglan 5mg Q8 PRN for high residuals. - On Prevacid 30 mg per PEG tube daily for GERD - 10/11 KUB abdomen: PEG tube in place. Unremarkable bowel gas pattern. FEN/Renal: Nonobstructing left renal calculus - Monitor renal function, I/O's. electrolytes replacement per protocol. Aspiration pneumonia Cele UTI 10/19 Sputum: Pseudomonas- likely colonized 10/19 urine cx: Yeast species 10/12 BC: NGTD 10/11 BC: NGTD 10/11 Urine cx: C. Tropicalis 10/11 Sputum: ESBL Klebsiella and Pseudomonas pneumonia 10/10 Urine: C. Tropicalis 09/21 Urine cx: Pseudomonas ? colonized 09/19 Sputum cx: Pseudomonas, Kleb pneumonia ESBL pos Candiduria (cele tropicalis urine cx 08/17) ESBL positive Klebsiella/Pseudomonas pneumonia Stenotrophomonas in sputum 08/17 MRSA colonization Sepsis UTI Klebsiella ESBL positive (has been treated) C. Diff 027 Off abx s/p ( Merrem finished 10 day course 10/23) monitor for signs of infections ( Fever, WBC) ID service is following as needed- Dr. Enoc Moss. CXR 10/26 no acute changes. d/c vanco (11/14-11/15), stools are pasty Normocytic Anemia - Monitor CBC Bilateral lower extremity Contractures Stage III sacral decubitus present on admission - Wound care and PT on case Prophylaxis - GI - Prevacid - DVT - SCDs/ Lovenox. Discharge Planning Transfer order to floor available. d/c to LTC when cleared by Dory Lugo MD Nov 16, 2015 09:30
--- NOTE | 2015-11-16 15:08 | HHI.PR ---
Subjective Remarks Seems comfortable and on a T Bar at FIO2 21 %,.Answers questions appropriately. On tube feeds. at 40 CC. Copious trach secretions Objective Vital Signs Date Time Temp Pulse Resp B/P Pulse Ox O2 Delivery O2 Flow Rate FiO2 11/16/15 12:00 87 11/16/15 12:00 93 T-Piece 21 11/16/15 12:00 97.0 87 23 154/86 93 11/16/15 10:28 93 T-piece 21 11/16/15 08:00 85 11/16/15 08:00 98.0 75 4 148/91 96 11/16/15 08:00 97 T-Piece 21 11/16/15 04:00 98.7 77 24 123/80 94 11/16/15 04:00 77 11/16/15 04:00 93 T-Piece 21 11/16/15 00:00 93 T-Piece 21 11/16/15 00:00 98.4 91 24 132/76 93 11/16/15 00:00 91 11/15/15 20:30 100 T-piece 21 11/15/15 20:00 95 T-Piece 21 11/15/15 20:00 97.9 88 24 162/93 98 11/15/15 20:00 85 11/15/15 16:00 98 T-Piece 21 11/15/15 16:00 81 11/15/15 16:00 97.4 73 17 102/57 98 I/O 11/15/15 11/15/15 11/15/15 11/16/15 11/16/15 11/16/15 07:00 15:00 23:00 07:00 15:00 23:00 Intake Total 470 ml 365 ml 333 ml 314 ml 346 ml Output Total 150 ml 250 ml 225 ml 175 ml 250 ml Balance 320 ml 115 ml 108 ml 139 ml 96 ml Intake Oral 0 ml 0 ml 0 ml IV Total 0 ml 0 ml 0 ml Tube Feeding 410 ml 305 ml 273 ml 254 ml 296 ml Other 60 ml 60 ml 60 ml 60 ml 50 ml Output Urine Total 150 ml 250 ml 225 ml 175 ml 250 ml Tube Feeding Residual Discard 0 ml # Bowel Movements 3 2 1 1 1 Result Diagram: 11/16/15 0710 11/16/15 0710 Objective Remarks This is a thin white male who is responsive and cooperative,with a trach tube in place. HEENT: Pupils are equal and reactive to light. Has Throat secretions CHEST:Decreased breath sounds and Occ crackles at bases CARDIOVASCULAR: S1 and S2 is normal.No murmur. ABDOMEN: Soft, nondistended. BS +. He has a PEG tube in place. EXTREMITIES: No edema.muscle wasting. NEURO: Lethargic , and has weak extremities, but moves arms. .Reflexes not elicited.Skin is dry. Assessment and Plan Assessment and Plan IMPRESSION 1. Chronic Respiratory failure. 2. Sepsis, Aspiration, resolved . 3. Shock.Resolved. 4. Tracheobronchitis 5. Parkinson's disease 6. Dementia. 7. Severe Deconditioning. Plan : 1. T Bar at 21% all the time 2. Nebs qid , duoneb. 3.Cont Tube feeds at 40 CC 4. Cont prednisone 7.5 mg daily. 5. Levsin .25 mg tid for Secretions 6. Cont Trach toilet and lavage. 8. Rehab placement soon 9. PM valve to talk Darren Kiser MD Nov 16, 2015 15:08
[2015-11-16] MEDS: OLANZapine 5 MG TAB GT SCH (21:10)
[2015-11-16] MEDS: ENOXAPARIN SODIUM 40 MG/0.4 ML SYRINGE SQ SCH (21:11)
[2015-11-17] VITALS (15 sets, daily range): BP systolic 112–136; BP diastolic 62–85; PULSE 68–99; RESP 19–28; TEMP 98.1–98.8; O2SAT 92–99
[2015-11-17] MEDS: LORazepam 2 MG/ML VIAL IVP PRN (04:16)
[2015-11-17] MEDS: SODIUM CHLORIDE 0.9% FLUSH 5 ML FLUSH IVF PRN (04:16)
[2015-11-17] MEDS: CARBIDOPA/LEVODOPA 25 MG/100 MG TAB GT SCH ×3 (04:16→21:22)
[2015-11-17] MEDS: ACETAMINOPHEN/HYDROcodone 325 MG/5 MG TAB PO PRN (04:16)
[2015-11-17] MEDS: clonazePAM 1 MG TAB PO SCH ×3 (04:16→21:21)
[2015-11-17] MEDS: INSULIN NovoLIN REGULAR SUPPLEMENTAL SCALE SQ SCH ×3 (06:00→18:00)
[2015-11-17] MEDS: CHLORHEXIDINE 0.12% (ORAL KIT) 15 ML CUP MT SCH ×2 (08:14→21:21)
[2015-11-17] MEDS: LANSOPRAZOLE SOLUTAB 30 MG TAB NG SCH (08:15)
[2015-11-17] MEDS: PARoxetine HCL 20 MG TAB G-TUBE SCH (08:15)
[2015-11-17] MEDS: GABAPENTIN 300 MG CAP G-TUBE SCH ×2 (08:15→21:22)
[2015-11-17] MEDS: MIDODRINE 5 MG TAB G-TUBE SCH ×2 (08:15→21:21)
[2015-11-17] MEDS: ARTIFICIAL TEARS OPTH SOLN 15 ML BTL EACH EYE SCH ×3 (08:15→18:00)
[2015-11-17] MEDS: QUEtiapine FUMARATE 25 MG TAB G-TUBE SCH ×2 (08:15→21:21)
[2015-11-17] MEDS: predniSONE 10 MG TAB PO SCH (08:15)
[2015-11-17] MEDS: LACTOBACILLUS ACIDOPHILUS TAB PO SCH ×3 (08:15→18:00)
[2015-11-17] MEDS: SODIUM CHLORIDE 0.9% FLUSH 5 ML FLUSH IVF SCH ×2 (08:16→21:22)
[2015-11-17] MEDS: COLLAGENASE OINT 30 GM TUBE TOP SCH (08:16)
--- NOTE | 2015-11-17 09:55 | HHI.PR ---
Subjective Remarks Pt non verbal. keeping eyes closed. Objective Vitals Vital Signs Date Time Temp Pulse Resp B/P Pulse Ox O2 Delivery O2 Flow Rate FiO2 11/17/15 08:15 97 T-piece 28 11/17/15 08:00 85 11/17/15 08:00 96 T-Piece 28 11/17/15 08:00 98.8 92 28 116/69 96 11/17/15 06:00 91 11/17/15 05:04 94 T-piece 6.00 28 11/17/15 04:00 93 T-Piece 21 11/17/15 04:00 98.4 69 22 135/81 92 11/17/15 04:00 93 11/17/15 02:00 68 11/17/15 00:00 87 11/17/15 00:00 92 T-Piece 21 11/17/15 00:00 98.1 80 21 125/77 92 11/16/15 22:10 92 T-piece 21 11/16/15 22:00 92 11/16/15 20:00 92 T-Piece 21 11/16/15 20:00 90 11/16/15 20:00 98.3 90 29 163/96 92 11/16/15 16:00 88 11/16/15 16:00 93 T-Piece 21 11/16/15 16:00 97.3 88 22 134/85 93 11/16/15 12:00 87 11/16/15 12:00 93 T-Piece 21 11/16/15 12:00 97.0 87 23 154/86 93 11/16/15 10:28 93 T-piece 21 I/O 11/16/15 11/16/15 11/16/15 11/17/15 11/17/15 11/17/15 07:00 15:00 23:00 07:00 15:00 23:00 Intake Total 314 ml 346 ml 680 ml 530 ml Output Total 175 ml 250 ml 350 ml 150 ml Balance 139 ml 96 ml 330 ml 380 ml Intake Oral 0 ml 0 ml IV Total 0 ml 0 ml 0 ml Tube Feeding 254 ml 296 ml 380 ml 230 ml Other 60 ml 50 ml 300 ml 300 ml Output Urine Total 175 ml 250 ml 350 ml 150 ml # Bowel Movements 1 1 1 1 Result Diagram: 11/16/15 0710 11/16/15 0710 Imaging Last Impressions Chest X-Ray 11/09/15 0000 Signed Impressions: Service Date/Time: Monday, November 09, 2015 10:09 - CONCLUSION: Minimal coarsening of bronchovascular markings in the retrocardiac region left lower lobe which could represent minimal early infiltrate Reyes Jewell MD Upper Extremity Ultrasound 10/13/15 0000 Signed Impressions: Service Date/Time: Tuesday, October 13, 2015 09:51 - CONCLUSION: 1. No evidence of deep venous thrombosis. John Anderson MD Abdomen X-Ray 10/12/15 0000 Signed Impressions: Service Date/Time: Monday, October 12, 2015 17:37 - CONCLUSION: 1. Gastrostomy tube in place 2. Unremarkable bowel gas pattern. Salazar Thurman MD Renal Ultrasound 10/07/15 0000 Signed Impressions: Service Date/Time: Wednesday, October 07, 2015 18:29 - CONCLUSION: 1. No acute findings. 3.6 cm left renal cyst. Putnam catheter in bladder. Amaury Ellsworth MD Tunnelled Chest Tube Removal 08/05/15 1100 Signed Impressions: Service Date/Time: Wednesday, August 05, 2015 11:00 - CONCLUSION: Uncomplicated chest tube removal. Blaine Jackson MD Chest Tube Change 07/31/15 0000 Signed Impressions: Service Date/Time: Friday, July 31, 2015 14:34 - CONCLUSION: Uncomplicated reposition of previously placed chest tube as above. Blaine Jackson MD Chest Tube Insertion 07/30/15 0000 Signed Impressions: Service Date/Time: July 14:50 - CONCLUSION: Uncomplicated chest tube placement as above. Blaine Jackson MD Catheter Change 07/27/15 0000 Signed Impressions: Service Date/Time: Monday, July 27, 2015 14:43 - CONCLUSION: Uncomplicated gastrostomy tube exchange as above. Blaine Jackson MD Chest CT 07/11/15 0000 Signed Impressions: Service Date/Time: Saturday, July 11, 2015 09:49 - CONCLUSION: Scattered patchy densities significantly improved from previous study. Tiny anterior right basilar pneumothorax. Right-sided chest tube in good position. Néstor Matamoros MD Head CT 06/18/15 [id number] Signed Impressions: Service Date/Time: June 19:31 - CONCLUSION: Diffuse atrophy unchanged. No acute intracranial findings. Kush Briscoe MD Abdomen/Pelvis CT 06/18/15 1903 Signed Impressions: Service Date/Time: June 19:36 - CONCLUSION: 1. Chronic nonspecific urinary bladder wall thickening. Bladder collapsed with Putnam catheter in place. 2. Chronic bilateral mid to lower lung zone groundglass opacity. 3. Nonobstructing left renal calculus. 4. Distended rectum. Kush Briscoe MD Objective Remarks GENERAL: Cachectic, contracted patient, chronic ill-looking, in no apparent distress. appears comfortable CARDIOVASCULAR: Regular rate and rhythm without murmurs. T piece in place. RESPIRATORY: fair air entry, no wheezing GASTROINTESTINAL: Abdomen soft, non-tender, nondistended. PEG tube in place MUSCULOSKELETAL: Lower extremity in crossover contraction , positive pedal pulses,. NEURO: didn't open eyes today, when I tried to open, he resisted. Doesn't answer questions Procedures 07/26- PEG replacement 07/29- right pigtail catheter placement for new pneumothorax Date of Insertion: Oct 05, 2015 A/P Problem List: (1) Sepsis due to urinary tract infection ICD Code: A41.9 Status: Resolved (2) Acute respiratory failure ICD Code: J96.00 Status: Resolved (3) Chronic respiratory failure ICD Code: J96.10 Status: Chronic (4) Parkinson disease ICD Code: G20 Status: Chronic (5) UTI (urinary tract infection) ICD Code: N39.0 Status: Acute (6) Encephalopathy ICD Code: G93.40 Status: Resolved Assessment and Plan Daily update & Mngmt 11/03 Discussed with the nurse, no acute issue, continue current care Record and hospital course reviewed including lab in previous intensive care notes Daily update & Mngmt 11/04 Continue current care follow with a [employer] operator, currently on T-tube Daily update & Mngmt 11/05 Continue current care, monitor temperature, O2 sat, continue 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 Daily update & Mngmt 11/06: 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, he is on Midrin, he also on prednisone 60 mg by mouth daily, discussed with the nurse, will discuss with pulmonary to start tapering prednisone if okay with him, will check manual blood pressure and if it's high we'll are Midodrin Appreciate palliative input, the daughter continue to requesting aggressive care despite poor prognosis Daily update & Mngmt 11/07 [facility] next and the nurses station Daily update & Mngmt 11/08 Increased secretions no fever or leukocytosis, continue intense chest toileting , Levsin, nebulizer, on T-tube, pulmonary following Daily update & Mngmt 11/09: Continue current care, palliative care following with the daughter Daily update & Mngmt 11/10: continue current care, no new changes per RN except that HR does go up whenever she moves him. Appreciate assistance from palliative care. They have been unable to set up an appt w daughter recently. Daily update & Mngmt 11/11: Continue current care, pt more alert this morning but still non verbal. no changes in management. Daily update & Mngmt 11/12 no change in current management. Daily update & Mngmt 11/13 no changes in current management Daily update & Mngmt 11/14 New finding of C. Diff virulent strain. consult ID, start on po vanco. decreased dose of midodrine to 2.5mg po BID as BPs do get elevated at times. Daily update & Mngmt 11/[address] Moss, pt is clinically stable. Since stools are pasty, for now d/c vanco and Ok to restart if clinical signs of infection or watery diarrhea (unformed stools) Daily update & Mngmt 11/16 No changes today. Per pulm notes, wants him to be on prednisone 7.5mg po daily. Change to PM valve to talk prn. Continue management. General A/P: 55 years old male with Parkinson's disease Cognitive disorder Chronic encephalopathy Dementia Depression Contractures On no sedation. CT head 06/18/15: diffuse atrophy unchanged. No acute intracranial findings Continue Sinemet 25/100 q8 via PEG, Seroquel 50 mg twice a day, olanzapine 5 mg a night, Klonopin 2 mg every 8 hours, Paxil 20 daily Continue Lortab when necessary pain and fentanyl patch 50 g every 3 days for pain management. Fentanyl bolus prn breakthrough pain or if needed for turning/ nursing care/etc. Acute on chronic respiratory failure Chronic trach #8 Shiley distal XLT Pneumonia, aspiration (ESBL Klebsiella and Pseudomonas pneumonia) Right pneumothorax status post pigtail catheter 2 (resolved) On T piece since 10/30 with CPAP at night. Tolerating T piece as tolerated starting 11/01 including [address] time. Pulmonary Dr. Restrepo following. On Prednisone 10mg daily Exchanged to 8 Distal XLT on 08/15 to facilitate suctioning, trach care. Bronchodilators ( DuoNeb) CXR 10/18, 10/26: No acute pulmonary infiltrates. History of orthostasis History of CAD History dyslipidemia History of hypertension Decrease Midodrine 2.5 mg BID. Monitor HR and BP keep MAP>65mmHg. Chronic moderate protein energy malnutrition Dysphagia Status post PEG Internal hemorrhoids Gastroesophageal reflux disease - TF Jevity 1.5 @ 60ml/hr, on Reglan 5mg Q8 PRN for high residuals. - On Prevacid 30 mg per PEG tube daily for GERD - 10/11 KUB abdomen: PEG tube in place. Unremarkable bowel gas pattern. FEN/Renal: Nonobstructing left renal calculus - Monitor renal function, I/O's. electrolytes replacement per protocol. Aspiration pneumonia Cele UTI 10/19 Sputum: Pseudomonas- likely colonized 10/19 urine cx: Yeast species 10/12 BC: NGTD 10/11 BC: NGTD 10/11 Urine cx: C. Tropicalis 10/11 Sputum: ESBL Klebsiella and Pseudomonas pneumonia 10/10 Urine: C. Tropicalis 09/21 Urine cx: Pseudomonas ? colonized 09/19 Sputum cx: Pseudomonas, Kleb pneumonia ESBL pos Candiduria (cele tropicalis urine cx 08/17) ESBL positive Klebsiella/Pseudomonas pneumonia Stenotrophomonas in sputum 08/17 MRSA colonization Sepsis UTI Klebsiella ESBL positive (has been treated) C. Diff 027 Off abx s/p ( Merrem finished 10 day course 10/23) monitor for signs of infections ( Fever, WBC) ID service is following as needed- Dr. Enoc Moss. CXR 10/26 no acute changes. d/c vanco (11/14-11/15), stools are pasty Normocytic Anemia - Monitor CBC Bilateral lower extremity Contractures Stage III sacral decubitus present on admission - Wound care and PT on case Prophylaxis - GI - Prevacid - DVT - SCDs/ Lovenox. Discharge Planning Transfer order to floor available. d/c to LTC when cleared by pulmonary Dory Mckeon MD Nov 17, 2015 09:55
--- NOTE | 2015-11-17 10:52 | HHI.PR ---
Subjective Remarks No change and on a T Bar at FIO2 28 %,. On tube feeds. at 40 CC. Copious trach secretions. Needs levsin prn. Objective Vital Signs Date Time Temp Pulse Resp B/P Pulse Ox O2 Delivery O2 Flow Rate FiO2 11/17/15 08:15 97 T-piece 28 11/17/15 08:00 85 11/17/15 08:00 96 T-Piece 28 11/17/15 08:00 98.8 92 28 116/69 96 11/17/15 06:00 91 11/17/15 05:04 94 T-piece 6.00 28 11/17/15 04:00 93 T-Piece 21 11/17/15 04:00 98.4 69 22 135/81 92 11/17/15 04:00 93 11/17/15 02:00 68 11/17/15 00:00 87 11/17/15 00:00 92 T-Piece 21 11/17/15 00:00 98.1 80 21 125/77 92 11/16/15 22:10 92 T-piece 21 11/16/15 22:00 92 11/16/15 20:00 92 T-Piece 21 11/16/15 20:00 90 11/16/15 20:00 98.3 90 29 163/96 92 11/16/15 16:00 88 11/16/15 16:00 93 T-Piece 21 11/16/15 16:00 97.3 88 22 134/85 93 11/16/15 12:00 87 11/16/15 12:00 93 T-Piece 21 11/16/15 12:00 97.0 87 23 154/86 93 I/O 11/16/15 11/16/15 11/16/15 11/17/15 11/17/15 11/17/15 07:00 15:00 23:00 07:00 15:00 23:00 Intake Total 314 ml 346 ml 680 ml 530 ml Output Total 175 ml 250 ml 350 ml 150 ml Balance 139 ml 96 ml 330 ml 380 ml Intake Oral 0 ml 0 ml IV Total 0 ml 0 ml 0 ml Tube Feeding 254 ml 296 ml 380 ml 230 ml Other 60 ml 50 ml 300 ml 300 ml Output Urine Total 175 ml 250 ml 350 ml 150 ml # Bowel Movements 1 1 1 1 Result Diagram: 11/16/1510 11/16/1510 Objective Remarks This is a thin white male who is responsive and cooperative,with a trach tube in place. HEENT: Pupils are equal and reactive to light. Has Throat secretions CHEST:Decreased breath sounds, with wheezes and Occ crackles at bases CARDIOVASCULAR: S1 and S2 is normal.No murmur. ABDOMEN: Soft, nondistended. BS +. He has a PEG tube in place. EXTREMITIES: No edema.muscle wasting. NEURO: Lethargic , and has weak extremities, but moves arms. .Reflexes not elicited.Skin is dry. Assessment and Plan Assessment and Plan IMPRESSION 1. Chronic Respiratory failure. 2. Sepsis, Aspiration, resolved . 3. Shock.Resolved. 4. Tracheobronchitis 5. Parkinson's disease 6. Dementia. 7. Severe Deconditioning. Plan : 1. T Bar at 28 % all the time 2. Nebs qid , duoneb. 3.Cont Tube feeds at 40 CC 4. Cont prednisone 5 mg daily. 5. Levsin .25 mg tid for Secretions 6. Cont Trach toilet and lavage. 8. Chest X ray in am. 9. PM valve to talk Darren Kiser MD Nov 17, 2015 10:52
[2015-11-17] MEDS: ENOXAPARIN SODIUM 40 MG/0.4 ML SYRINGE SQ SCH (21:21)
[2015-11-17] MEDS: OLANZapine 5 MG TAB GT SCH (21:22)
[2015-11-18] VITALS (14 sets, daily range): BP systolic 119–140; BP diastolic 60–88; PULSE 78–90; RESP 21–25; TEMP 97.3–99.2; O2SAT 94–100
--- NOTE | 2015-11-18 03:21 | RADRPT ---
EXAM DATE/TIME: 11/18/2015 02:22 [place] COMPARISON: CHEST SINGLE AP, November 09, 2015, 10:09. CHEST SINGLE AP, November 07, 2015, 11:41. INDICATIONS : Shortness of breath. MEDICAL HISTORY : Hypertension. Diabetes mellitus type II. Cardiovascular disease. SURGICAL HISTORY : Tracheostomy ENCOUNTER: Subsequent ACUITY: 2 weeks PAIN SCORE: Non-responsive. LOCATION: Bilateral chest FINDINGS: A single view of the chest demonstrates the lungs to be symmetrically aerated without evidence of mas s, infiltrate or effusion. The cardiomediastinal contours are unremarkable. Osseous structures are intact. CONCLUSION: Normal examination. Tracheostomy tube is in good position. Nghia Mason MD on November 18, 2015 at 3:16 Board Certified Radiologist. This report was verified electronically.
[2015-11-18] MEDS: CARBIDOPA/LEVODOPA 25 MG/100 MG TAB GT SCH ×3 (05:53→21:40)
[2015-11-18] MEDS: clonazePAM 1 MG TAB PO SCH ×3 (05:53→21:40)
[2015-11-18] MEDS: INSULIN NovoLIN REGULAR SUPPLEMENTAL SCALE SQ SCH ×4 (05:54→18:00)
[2015-11-18 06:53] LABS: AUTOMATED NEUTROPHIL # 7.5 TH/MM3 (1.8-7.7); BASOPHIL % 0.4 % (0.0-2.0); EOSINOPHIL # 0.3 TH/MM3 (0-0.4); EOSINOPHIL % 2.5 % (0.0-4.0); HEMATOCRIT 43.5 % (39.0-51.0); HEMO FLAGS DIFF FINAL; LYMPH % 18.4 % (9.0-44.0); LYMPHOCYTE # 1.9 TH/MM3 (1.0-4.8); MEAN CELL VOLUME 85.1 FL (80.0-100.0); MEAN CORPUSCULAR HEMOGLOBIN 28.1 PG (27.0-34.0); MONO % 5.7 % (0.0-8.0); PLATELET COUNT 200 TH/MM3 (150-450); RED BLOOD COUNT 5.11 MIL/MM3 (4.50-5.90); RED CELL DISTRIBUTION WIDTH 17.6 % (11.6-17.2); WHITE BLOOD COUNT 10.2 TH/MM3 (4.0-11.0)
[2015-11-18 07:09] LABS: POTASSIUM 4.1 MEQ/L (3.5-5.1)
[2015-11-18] MEDS ORDERED: predniSONE 5 MG TAB PO SCH (09:00)
[2015-11-18] MEDS: CHLORHEXIDINE 0.12% (ORAL KIT) 15 ML CUP MT SCH ×2 (09:09→20:00)
[2015-11-18] MEDS: PARoxetine HCL 20 MG TAB G-TUBE SCH (09:10)
[2015-11-18] MEDS: QUEtiapine FUMARATE 25 MG TAB G-TUBE SCH ×2 (09:10→21:40)
[2015-11-18] MEDS: LACTOBACILLUS ACIDOPHILUS TAB PO SCH ×3 (09:10→18:08)
[2015-11-18] MEDS: LANSOPRAZOLE SOLUTAB 30 MG TAB NG SCH (09:10)
[2015-11-18] MEDS: MIDODRINE 5 MG TAB G-TUBE SCH ×2 (09:11→21:40)
[2015-11-18] MEDS: SODIUM CHLORIDE 0.9% FLUSH 5 ML FLUSH IVF SCH ×2 (09:11→21:00)
[2015-11-18] MEDS: predniSONE 5 MG TAB PO SCH (09:11)
[2015-11-18] MEDS: GABAPENTIN 300 MG CAP G-TUBE SCH ×2 (09:11→21:40)
[2015-11-18] MEDS: ARTIFICIAL TEARS OPTH SOLN 15 ML BTL EACH EYE SCH ×3 (09:11→18:08)
[2015-11-18] MEDS: COLLAGENASE OINT 30 GM TUBE TOP SCH (09:13)
--- NOTE | 2015-11-18 11:38 | HHI.PR ---
Subjective Remarks Remains on a T Bar at FIO2 28 %,. Responds to questions On tube feeds. at 40 CC. Few trach secretions. Needs levsin prn. Objective Vital Signs Date Time Temp Pulse Resp B/P Pulse Ox O2 Delivery O2 Flow Rate FiO2 11/18/15 06:00 83 11/18/15 05:40 99 T-piece 28 11/18/15 04:00 90 11/18/15 04:00 99 T-Piece 28 11/18/15 04:00 98.4 90 25 124/88 100 11/18/15 02:00 79 11/18/15 00:00 86 11/18/15 00:00 97 T-Piece 28 11/18/15 00:00 99.2 86 25 119/73 97 11/17/15 22:00 99 11/17/15 21:20 99 T-piece 5.00 28 11/17/15 20:00 97 T-Piece 28 11/17/15 20:00 80 11/17/15 20:00 98.8 80 28 136/85 97 11/17/15 18:00 91 11/17/15 16:00 98.5 96 24 113/62 95 11/17/15 16:00 95 T-Piece 28 11/17/15 16:00 96 11/17/15 14:00 74 11/17/15 12:00 98.4 73 19 112/62 93 11/17/15 12:00 73 11/17/15 12:00 93 T-Piece 28 I/O 11/17/15 11/17/15 11/17/15 11/18/15 11/18/15 11/18/15 07:00 15:00 23:00 07:00 15:00 23:00 Intake Total 530 ml 408 ml 389 ml 334 ml Output Total 150 ml 325 ml 225 ml 150 ml Balance 380 ml 83 ml 164 ml 184 ml Intake Oral 0 ml 0 ml 0 ml IV Total 0 ml 0 ml 0 ml 0 ml Tube Feeding 230 ml 358 ml 269 ml 214 ml Tube Irrigant 50 ml Other 300 ml 120 ml 120 ml Output Urine Total 150 ml 325 ml 225 ml 150 ml # Bowel Movements 1 2 1 2 Result Diagram: 11/18/15 0611/18/15600 Objective Remarks This is a thin white male who is responsive and cooperative,with a trach tube in place. HEENT: Pupils are equal and reactive to light. Has Throat secretions CHEST:Decreased breath sounds, with wheezes and Occ crackles at bases CARDIOVASCULAR: S1 and S2 is normal.No murmur. ABDOMEN: Soft, nondistended. BS +. He has a PEG tube in place. EXTREMITIES: No edema.muscle wasting. NEURO: Alert, and has weak extremities, but moves arms. .Reflexes not elicited.Skin is dry. Assessment and Plan Assessment and Plan IMPRESSION 1. Chronic Respiratory failure. 2. Sepsis, Aspiration, resolved . 3. Shock.Resolved. 4. Tracheobronchitis 5. Parkinson's disease 6. Dementia. 7. Severe Deconditioning. Plan : 1. T Bar at 28 % all the time 2. Nebs qid , duoneb. 3.Cont Tube feeds at 40 CC 4. Cont prednisone 5 mg daily. 5. Levsin .25 mg tid for Secretions 6. Cont Trach toilet and lavage. 8. PT to help in activity 9. PM valve to talk Darren Kiser MD Nov 18, 2015 11:38
--- NOTE | 2015-11-18 14:04 | HHI.HCPN ---
Reason for visit a. To assist with evaluation and management of symptoms including: secretions, dyspnea. b. To assist medical decision maker(s) with: better understanding of current medical conditions; weighing benefits/burdens of medical treatment options; making medical treatment decisions. . Subjective/Interval History Patient seen and examined in ICU. Daughter, Radha and ex-, Shalonda at bedside. Also present Sulma Taylor LCSW. Patient on oxygen via t-piece. Eyes open, does not follow commands. Family feels he is trying to speak with them, I am not certain. Afebrile. No new labs or imaging. Nursing pain level scores are "0" No recent PRN Morphine or Lisco given. Patient does not appear painful during my visit. From Dr. Pickard's initial palliative care consultation of 07/15/15... This is the 5th [facility] care [facility] admission in the last 10 months for this unfortunate 54 y/o male [facility] resident with advanced Parkinson's disease ; dementia; tracheostomy and PEG tube who was sent to the ED from his facility on 06/18/15 because of fevers, labored breathing, worsening mental status; and purulent looking sputum at the trach site. The patient has had multiple hospitalizations which included stays in the intensive care unit for various infections. He had a urinary tract infection with multidrug resistant ESBL on 02/19/15. He was last MRSA positive on . [facility] notes from the facility indicate that his current baseline is: * Bedbound status * Unable to communicate * NPO -- on tube feedings at 85 cc /hr * Dependent for all ADLs In the emergency Department, initial vital signs were as follows > temperature 100.9; pulse 98; respiratory rate 38; blood pressure 104/61; pulse oximetry 99% on room air via trach collar. Initial physical examination the emergency department revealed the following > patient was frail and chronically ill-appearing. Skin showed no obvious wounds. Head, eyes, ENT, neck, cardiovascular, respiratory, gastrointestinal exams were unremarkable. Neurologically, the patient was unable to answer questions or respond or follow commands. Initial diagnostic testing revealed the following: * CBC showed WBC 16.4; hemoglobin 11.3; platelet count 176 * Coagulation profile showed PT 11.4; INR 1.1; PTT 29.4 * Chemistry profile showed sodium 141; potassium 4.5; chloride 105; CO2 27.4; anion gap 9; BUN 21; creatinine 0.85; estimated GFR 95; glucose 116; calcium 9.6 * Liver function tests showed total bilirubin 0.6; AST 23; ALT 38; alkaline phosphatase 59; total protein 7.5; albumen 3.2 * Urinalysis was remarkable for large occult blood; large leukocyte esterase; few bacteria; few yeast with hyphae; few budding yeast. * Arterial blood gases on trach mask at 40% showed pH 7.53; PCO2 33; PaO2 108; bicarbonate 27; base excess 4.2 * Chest x-ray showed no acute cardiopulmonary disease * Head CT showed diffuse atrophy unchanged from prior exam. * CT of the abdomen and pelvis showed chronic nonspecific urinary bladder wall thickening; bladder collapsed with Valdez catheter in place; chronic bilateral mid to lower lung zone groundglass opacity; nonobstructing left renal calculus; distended rectum. * The emergency room doctor diagnosed severe sepsis. The patient was given 2 L of IV fluid and broad-spectrum antibiotic-coated verge in the emergency department. Cultures were obtained. Valdez catheter was changed. As the patient was markedly tachypneic with increased work of breathing and use of accessory muscles during his stay in the emergency department. He was placed on CPAP and subsequently intubated and placed on mechanical ventilation. Critical care was consulted and the patient was admitted to the intensive care unit. Further examination revealed a stage II 6 x 2 cm sacral wound. Urine culture on admission grew out Heena of 2 different species. Sputum culture grew out Klebsiella pneumonia ESBL positive as well as pseudomonas. Blood culture grew out coag-negative staph and staph epidermidis. Both infectious disease and pulmonology were consulted. The patient slowly improved, was extubated, and critical care signed off on . However, on 07/06 the patient had to be placed back on the ventilator. A right sided pneumothorax was noted and patient underwent chest tube placement by interventional radiology. Pneumothorax has appeared to resolve on most recent chest x-ray. Sputum, blood, and urine cultures from 07/07/15 are all negative. White blood count is currently down to 7. Hemoglobin is 10.6. Albumen is suboptimal at 3.0. Renal function is normal. He is currently off anti-biotics. Current pain regimen includes the following: * Fentanyl patch; 50 g per hour * Morphine sulfate 5 mg sublingually or via the tube every 4 hours when necessary (he has been using 1-2 doses of this per day) The patient was tolerating CPAP earlier today and has since been removed from the ventilator and is on a T-piece at 40% FI02. At time of my visit, eyes are open. He intermittently tracks. He cannot follow commands and makes no attempt to interact. . Family/friend interactions Lengthy meet with Radha (dtr/HCS) and Shalonda (Radha's mother and pt ex-). Also present Sulma Taylor LCSW and Capri, therapeutic case manager for a portion of the visit. Medical update provided. Family seems to have limited understanding of disease progression and not believing overall poor prognosis and limited life expectancy. Shalonda desires pt to be transferred to hospital in [place], hear family. I told them they would need to find an accepting MD, though I advised this is not likely. Family is not ready to consider hospice services. They want to bring him home, have no resources to pay for 24 hour care. Family indicates a friend named Jesús katzs of the patient finances, number provided to case management. Family ultimately hopes to have pt transferred to SNF in [place], [place] and understand this cannot be done until Medicaid is applied for. . Advance Directives Living Will: Never completed Health Care Surrogate: Copy in medical record Durable Power of Time Study Engineer: Never completed Advance Directive Specifics Date completed: Patient visited Scott Mack, Time Study Engineer in March and again in November 2014. The patient was encouraged to complete Advance directive documents but never did them. Dr. Pickard personally called Mr. Mack ([phone]) to check for advance directives. Health Care Surrogate(s): The patient completed a health care surrogate document dated 09/02/14 desigating his friend Bola Nolasco as surrogate. Mr. Nolasco was not aware of this and has declined serving in that capacity. The patient has an adult daughter -- Radha Foreman who is willing to serve as health care proxy decision maker. Patient's mother, Teresa is aware. Significant change in goals: NO CODE, otherwise goals remain aggressive. Daughter hopes pt can be moved to facility near her in [place], [place]. . Objective Vital Signs Date Time Temp Pulse Resp B/P Pulse Ox O2 Delivery O2 Flow Rate FiO2 11/18/15 12:00 97.7 80 23 135/74 100 11/18/15 12:00 80 11/18/15 12:00 98 T-Piece 28 11/18/15 10:00 87 11/18/15 08:00 98 T-Piece 28 11/18/15 08:00 97.7 80 22 120/70 98 11/18/15 08:00 80 11/18/15 06:00 83 11/18/15 05:40 99 T-piece 28 11/18/15 04:00 90 11/18/15 04:00 99 T-Piece 28 11/18/15 04:00 98.4 90 25 124/88 100 11/18/15 02:00 79 11/18/15 00:00 86 11/18/15 00:00 97 T-Piece 28 11/18/15 00:00 99.2 86 25 119/73 97 11/17/15 22:00 99 11/17/15 21:20 99 T-piece 5.00 28 11/17/15 20:00 97 T-Piece 28 11/17/15 20:00 80 11/17/15 20:00 98.8 80 28 136/85 97 11/17/15 18:00 91 11/17/15 16:00 98.5 96 24 113/62 95 11/17/15 16:00 95 T-Piece 28 11/17/15 16:00 96 11/17/15 14:00 74 Intake & Output 11/18/15 11/18/15 07:00 19:00 Intake Total 723 ml Output Total 375 ml Balance 348 ml Intake Oral 0 ml IV Total 0 ml Tube Feeding 483 ml Other 240 ml Output Urine Total 375 ml # Bowel Movements 3 Physical Exam CONSTITUTIONAL/GENERAL: This is a thin, pale, contracted, chronically ill appearing [facility]. Unresponsive. TUBES/LINES/DRAINS: Trach, valdez cath, PIV left, PEG tube; scd's SKIN: No jaundice, rashes, or lesions. Sacral wound, not visualized today. NECK: Tracheostomy to t-piece. CARDIOVASCULAR: Regular rate and rhythm without murmurs, gallops, or rubs. No JVD. Peripheral pulses symmetric. RESPIRATORY/CHEST: Scattered course breath sounds. Breath sounds equal bilaterally and diminished at bases. GASTROINTESTINAL: Abdomen soft, non-tender, nondistended. No guarding. Bowel sounds present. GENITOURINARY: Without palpable bladder distension. catheter in place. MUSCULOSKELETAL: Contractures noted. No mottling. NEUROLOGICAL: Does not open eyes to voice or command. Unresponsive. Unable to follow even simple commands. No spontaneous movements seen. PSYCHIATRIC: Unresponsive. . Diagnostic Tests Laboratory Laboratory Tests Test 11/16/15 11/18/15 07:10 06:01 White Blood Count 11.3 TH/MM3 10.2 TH/MM3 (4.0-11.0) (4.0-11.0) Red Blood Count 5.01 MIL/MM3 5.11 MIL/MM3 (4.50-5.90) (4.50-5.90) Hemoglobin 14.2 GM/DL 14.3 GM/DL (13.0-17.0) (13.0-17.0) Hematocrit 42.0 % 43.5 % (39.0-51.0) (39.0-51.0) Mean Corpuscular Volume 83.7 FL 85.1 FL (80.0-100.0) (80.0-100.0) Mean Corpuscular Hemoglobin 28.2 PG 28.1 PG (27.0-34.0) (27.0-34.0) Mean Corpuscular Hemoglobin 33.7 % 33.0 % Concent (32.0-36.0) (32.0-36.0) Red Cell Distribution Width 17.8 % 17.6 % (11.6-17.2) (11.6-17.2) Platelet Count 220 TH/MM3 200 TH/MM3 (150-450) (150-450) Mean Platelet Volume 10.6 FL 10.2 FL (7.0-11.0) (7.0-11.0) Neutrophils (%) (Auto) % (16.0-70.0) 73.0 % (16.0-70.0) Lymphocytes (%) (Auto) % (9.0-44.0) 18.4 % (9.0-44.0) Monocytes (%) (Auto) % (0.0-8.0) 5.7 % (0.0-8.0) Eosinophils (%) (Auto) % (0.0-4.0) 2.5 % (0.0-4.0) Basophils (%) (Auto) % (0.0-2.0) 0.4 % (0.0-2.0) Neutrophils # (Auto) TH/MM3 7.5 TH/MM3 (1.8-7.7) (1.8-7.7) Lymphocytes # (Auto) TH/MM3 1.9 TH/MM3 (1.0-4.8) (1.0-4.8) Monocytes # (Auto) TH/MM3 (0-0.9) 0.6 TH/MM3 (0-0.9) Eosinophils # (Auto) TH/MM3 (0-0.4) 0.3 TH/MM3 (0-0.4) Basophils # (Auto) TH/MM3 (0-0.2) 0.0 TH/MM3 (0-0.2) CBC Comment AUTO DIFF DIFF FINAL Differential Total Cells 100 Counted Neutrophils % (Manual) 64 % (16-70) Band Neutrophils % 2 % (0-6) Lymphocytes % 27 % (9-44) Monocytes % 3 % (0-8) Eosinophils % 2 % (0-4) Neutrophils # (Manual) 7.7 TH/MM3 (1.8-7.7) Metamyelocytes 2 % (0-1) Differential Comment FINAL DIFF MANUAL Atypical Lymphocytes % (0-0) Platelet Estimate NORMAL (NORMAL) Platelet Morphology Comment CLUMPED (NORMAL) Red Cell Morphology Comment NORMAL (NORMAL) Hematology Comments Sodium Level 140 MEQ/L 142 MEQ/L (136-145) (136-145) Potassium Level 4.9 MEQ/L 4.1 MEQ/L (3.5-5.1) (3.5-5.1) Chloride Level 101 MEQ/L 101 MEQ/L (98-107) (98-107) Carbon Dioxide Level 29.9 MEQ/L 32.0 MEQ/L (21.0-32.0) (21.0-32.0) Anion Gap 9 MEQ/L (5-15) 9 MEQ/L (5-15) Blood Urea Nitrogen 16 MG/DL (7-18) 17 MG/DL (7-18) Creatinine 0.59 MG/DL 0.57 MG/DL (0.60-1.30) (0.60-1.30) Estimat Glomerular Filtration 144 ML/MIN 150 ML/MIN Rate (>89) (>89) Random Glucose 101 MG/DL 84 MG/DL (74-106) (74-106) Calcium Level 9.3 MG/DL 9.4 MG/DL (8.5-10.1) (8.5-10.1) Result Diagram: 11/18/1560011/18/15600 Imaging Last Impressions Chest X-Ray 11/18/15 06 Signed Impressions: Service Date/Time: Wednesday, November 18, 2015 02:22 - CONCLUSION: Normal examination. Tracheostomy tube is in good position. Nghia Mason MD Upper Extremity Ultrasound 10/13/15 0000 Signed Impressions: Service Date/Time: Tuesday, October 13, 2015 09:51 - CONCLUSION: 1. No evidence of deep venous thrombosis. John Anderson MD Abdomen X-Ray 10/12/15 0000 Signed Impressions: Service Date/Time: Monday, October 12, 2015 17:37 - CONCLUSION: 1. Gastrostomy tube in place 2. Unremarkable bowel gas pattern. Salazar Thurman MD Renal Ultrasound 10/07/15 0000 Signed Impressions: Service Date/Time: Wednesday, October 07, 2015 18:29 - CONCLUSION: 1. No acute findings. 3.6 cm left renal cyst. Avldez catheter in bladder. Amaury Ellsworth MD Tunnelled Chest Tube Removal 08/05/15 1100 Signed Impressions: Service Date/Time: Wednesday, August 05, 2015 11:00 - CONCLUSION: Uncomplicated chest tube removal. Blaine Jackson MD Chest Tube Change 07/31/15 0000 Signed Impressions: Service Date/Time: Friday, July 31, 2015 14:34 - CONCLUSION: Uncomplicated reposition of previously placed chest tube as above. Blaine Jackson MD Chest Tube Insertion 07/30/15 0000 Signed Impressions: Service Date/Time: July 14:50 - CONCLUSION: Uncomplicated chest tube placement as above. Blaine Jackson MD Catheter Change 07/27/15 0000 Signed Impressions: Service Date/Time: Monday, July 27, 2015 14:43 - CONCLUSION: Uncomplicated gastrostomy tube exchange as above. Blaine Jackson MD Chest CT 07/11/15 0000 Signed Impressions: Service Date/Time: Saturday, July 11, 2015 09:49 - CONCLUSION: Scattered patchy densities significantly improved from previous study. Tiny anterior right basilar pneumothorax. Right-sided chest tube in good position. Néstor Matamoros MD Head CT 06/18/151902 Signed Impressions: Service Date/Time: June 19:31 - CONCLUSION: Diffuse atrophy unchanged. No acute intracranial findings. Kush Briscoe MD Abdomen/Pelvis CT 06/18/151902 Signed Impressions: Service Date/Time: June 19:36 - CONCLUSION: 1. Chronic nonspecific urinary bladder wall thickening. Bladder collapsed with Valdez catheter in place. 2. Chronic bilateral mid to lower lung zone groundglass opacity. 3. Nonobstructing left renal calculus. 4. Distended rectum. Kush Briscoe MD Procedures * Mechanical ventilation * Chest tube placement on right 07/07/15 * Chest tube removal 07/17/15 . Assessment and Plan Disease Oriented Problem List: (1) Acute respiratory failure Comment: 10/13/15 - Halicat for hypotension and tube feeding coming from trach. - Back on mech vent in ICU. . (2) Chronic respiratory failure (3) Septic shock (4) Pneumonia Comment: Aspiration. Repeat cultures pending. . (5) UTI (urinary tract infection) Comment: Repeat culture pending. . (6) Parkinson disease (7) Moderate malnutrition Symptom Scale: (1) Pain 0-10 Scale: Unable to quantify Comment: Sources of pain might include wound, prolonged bedbound status, contractures, restraints, valdez, vascular access catheters. Appears comfortable on current regimen. ,l (2) Dyspnea 0-10 Scale: Unable to quantify Comment: On t-piece. . (3) Malnutrition 0-10 Scale: Unable to quantify Comment: Tolerating tube feedings. . (4) Encephalopathy 0-10 Scale: Unable to quantify Comment: Remains unresponsive. Pertinent Non-Medical Issues Psychosocial: correction group home resident. 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 Severe dementia. Daughter, mother, and brother are involved. Spiritual: Orthodoxy. Has been a member for the [employer] buddhist and members have provided both community support and spiritual support in the past. Legal: No advance directives. Daughter (Radha Foreman) is legal proxy and lives 4 hours away. She can be quite difficult to contact by phone. Ethical issues impacting care: None. . Important Contacts * Radha Foreman (daughter and proxy) [phone] * Teresa Perea (mother -- lives in [place]) [phone] . Prognosis Patient has end stage Parkinson's with end stage dementia. He is a [facility] resident and has required multiple hospitalizations for sepsis. He is a chronic trach/PEG tube patient with contractures and skin breakdown. Should family continue to want aggressive care, he will continue to go back and forth from facility to hospital until such time that we are no longer able to overcome the sepsis. Patient is hospice eligible whenever family is ready to transition to "comfort measures only." . Code Status: No Code Plan * Decision making: Patient is incapacitated and will not regain capacity. There is no designated health care surrogate. Daughter, Radha Foreman, is legal proxy under [place] statutes but can be hard to contact at times. * NO CODE * Goals aggressive short of NO CODE at this time. Met with daughterRadha (HCS ) and her mother, Shalonda Foreman (ex-) medical update provided. They seem to have a very simple understanding of condition and desire continued aggressive care. They are not ready to consider hospice. They met with Capri, showplace manager and indicate they do not handle pt finances, name provided of friend, Jesús (? sp) who handles all of his money. They hope patient can eventually be moved to a facility closer to them in [place], [place]. * Pain: Sources of pain are unclear as patient in non communicative, but would include prolonged bedbound status; tubes and lines; contractures; wound; etc. Current regimen appears to adequate . No further recommendations at this time. * Dyspnea: Dyspnea due to aspiration pneumonia. Has previously been challenging to get off vent. * Malnutrition: Tolerating tube feeds, but albumin remains low. * Palliative care will try and meet with Radha (proxy) in person when she next comes to visit. She continues to insist on aggressive goals in spite of the incredibly bleak prognosis. . . Attestation To help prompt me to consider important information that might be impacting today's encounter and assessment, information from prior notes written by myself or my colleagues may have been "brought forward" into today's note. My signature on this note, however, is an attestation that I personally performed the exam, history, and/or decision-making noted today, and, unless otherwise indicated, the interactions with patient, family, and staff as well as the review of records all occurred today. I also attest that the listed assessment and stated plan reflect my best clinical judgment today based on the combination of historical information, prior notes, and today's exam/ interactions. When time spent is documented, it refers only to time spent today by the signer, or if indicated, combined time spent today by collaborating physician/nurse practitioner. ALOK JONES Nov 18, 2015 14:04
--- NOTE | 2015-11-18 17:15 | HHI.PR ---
Subjective Remarks The patient was resting comfortably. Nursing was in the room. Apparently the patient's daughter stopped by today. No acute concerns at this time. Objective Vitals Vital Signs Date Time Temp Pulse Resp B/P Pulse Ox O2 Delivery O2 Flow Rate FiO2 11/18/15 16:00 97.3 78 21 120/60 97 11/18/15 16:00 78 11/18/15 16:00 98 T-Piece 28 11/18/15 14:02 94 T-piece 28 11/18/15 14:00 80 11/18/15 12:00 97.7 80 23 135/74 100 11/18/15 12:00 80 11/18/15 12:00 98 T-Piece 28 11/18/15 10:00 87 11/18/15 08:00 98 T-Piece 28 11/18/15 08:00 97.7 80 22 120/70 98 11/18/15 08:00 80 11/18/15 06:00 83 11/18/15 05:40 99 T-piece 28 11/18/15 04:00 90 11/18/15 04:00 99 T-Piece 28 11/18/15 04:00 98.4 90 25 124/88 100 11/18/15 02:00 79 11/18/15 00:00 86 11/18/15 00:00 97 T-Piece 28 11/18/15 00:00 99.2 86 25 119/73 97 11/17/15 22:00 99 11/17/15 21:20 99 T-piece 5.00 28 11/17/15 20:00 97 T-Piece 28 11/17/15 20:00 80 11/17/15 20:00 98.8 80 28 136/85 97 11/17/15 18:00 91 I/O 11/17/15 11/17/15 11/17/15 11/18/15 11/18/15 11/18/15 07:00 15:00 23:00 07:00 15:00 23:00 Intake Total 530 ml 408 ml 389 ml 334 ml 548 ml Output Total 150 ml 325 ml 225 ml 150 ml 300 ml Balance 380 ml 83 ml 164 ml 184 ml 248 ml Intake Oral 0 ml 0 ml 0 ml IV Total 0 ml 0 ml 0 ml 0 ml 0 ml Tube Feeding 230 ml 358 ml 269 ml 214 ml 428 ml Tube Irrigant 50 ml Other 300 ml 120 ml 120 ml 120 ml Output Urine Total 150 ml 325 ml 225 ml 150 ml 300 ml # Bowel Movements 1 2 1 2 2 Result Diagram: 11/18/1560011/18/15600 Imaging Last Impressions Chest X-Ray 11/18/15 06 Signed Impressions: Service Date/Time: Wednesday, November 18, 2015 02:22 - CONCLUSION: Normal examination. Tracheostomy tube is in good position. Nghia Mason MD Upper Extremity Ultrasound 10/13/15 0000 Signed Impressions: Service Date/Time: Tuesday, October 13, 2015 09:51 - CONCLUSION: 1. No evidence of deep venous thrombosis. John Anderson MD Abdomen X-Ray 10/12/15 0000 Signed Impressions: Service Date/Time: Monday, October 12, 2015 17:37 - CONCLUSION: 1. Gastrostomy tube in place 2. Unremarkable bowel gas pattern. Salazar Thurman MD Renal Ultrasound 10/07/15 0000 Signed Impressions: Service Date/Time: Wednesday, October 07, 2015 18:29 - CONCLUSION: 1. No acute findings. 3.6 cm left renal cyst. Putnam catheter in bladder. Amaury Ellsworth MD Tunnelled Chest Tube Removal 08/05/15 1100 Signed Impressions: Service Date/Time: Wednesday, August 05, 2015 11:00 - CONCLUSION: Uncomplicated chest tube removal. Blaine Jackson MD Chest Tube Change 07/31/15 0000 Signed Impressions: Service Date/Time: Friday, July 31, 2015 14:34 - CONCLUSION: Uncomplicated reposition of previously placed chest tube as above. Blaine Jackson MD Chest Tube Insertion 07/30/15 0000 Signed Impressions: Service Date/Time: July 14:50 - CONCLUSION: Uncomplicated chest tube placement as above. Blaine Jackson MD Catheter Change 07/27/15 0000 Signed Impressions: Service Date/Time: Monday, July 27, 2015 14:43 - CONCLUSION: Uncomplicated gastrostomy tube exchange as above. Blaine Jackson MD Chest CT 07/11/15 0000 Signed Impressions: Service Date/Time: Saturday, July 11, 2015 09:49 - CONCLUSION: Scattered patchy densities significantly improved from previous study. Tiny anterior right basilar pneumothorax. Right-sided chest tube in good position. Néstor Matamoros MD Head CT 06/18/151902 Signed Impressions: Service Date/Time: June 19:31 - CONCLUSION: Diffuse atrophy unchanged. No acute intracranial findings. Kush Briscoe MD Abdomen/Pelvis CT 06/18/151902 Signed Impressions: Service Date/Time: June 19:36 - CONCLUSION: 1. Chronic nonspecific urinary bladder wall thickening. Bladder collapsed with Putnam catheter in place. 2. Chronic bilateral mid to lower lung zone groundglass opacity. 3. Nonobstructing left renal calculus. 4. Distended rectum. Kush Briscoe MD Objective Remarks GENERAL: Well-nourished, well-developed patient. SKIN: Warm and dry. HEAD: Normocephalic. EYES: No scleral icterus. No injection or drainage. NECK: Trach in place. CARDIOVASCULAR: Regular rate and rhythm without murmurs, gallops, or rubs. RESPIRATORY: + secretions. Moderate air entry. Scattered rhonchi. GASTROINTESTINAL: Abdomen soft, non-tender, nondistended. MUSCULOSKELETAL: No edema. Contractures and deformities of fingers. Stage III coccyx/sacral decubitus ulcer. NEURO: Unresponsive to voice, not following commands. Procedures 07/26- PEG replacement 07/29- right pigtail catheter placement for new pneumothorax Medications and IVs Current Medications Medications (Trade) Dose Ordered Sig/Jassi Route Start Time Stop Time Status Last Admin (NS Flush) 2 ml UNSCH PRN IVF 06/18/15 21:30 11/17/15 04:16 (NS Flush) 2 ml BID IVF 06/19/15 09:00 11/18/15 09:11 (Tylenol 650 Mg/ 20 ml Liq) 650 mg Q6H PRN TUBE 06/18/15 21:30 09/30/15 09:01 (Tears Naturale Opth Soln) 1 drop TID EACH EYE 06/19/15 09:00 11/18/15 13:35 (Zofran Inj) 4 mg Q6H PRN IV 06/18/15 21:30 11/04/15 13:59 (Sinemet 25-100 Mg) 1 tab Q8HR GT 06/19/15 06:00 11/18/15 13:34 (Neurontin) 300 mg BID G-TUBE 06/19/15 09:00 11/18/15 09:11 (Lactinex) 1 tab TID PO 06/19/15 09:00 11/18/15 13:35 (Paxil) 20 mg DAILY G-TUBE 06/19/15 09:00 11/18/15 09:10 (Pill Splitter) 1 ea UNSCH PRN OTHER 06/19/15 03:30 06/28/15 09:35 (Prevacid Odt) 30 mg DAILY NG 07/08/15 09:00 11/18/15 09:10 (KlonoPIN) 2 mg Q8HR PO 07/09/15 14:00 11/18/15 13:34 (SEROquel) 50 mg BID G-TUBE 07/18/15 09:00 11/18/15 09:10 (Morphine Inj) 2 mg Q3H PRN IV PUSH 07/28/15 00:45 11/15/15 03:16 (Peridex 0.12% Liq) 15 ml BID@08,20 MT 07/29/15 20:00 11/18/15 09:09 (Ativan Inj) 0.5 mg Q6H PRN IVP 08/04/15 13:00 11/17/15 04:16 (Lovenox Inj) 40 mg Q24H SQ 08/09/15 22:00 11/17/15 21:21 ([place] 5-325 Mg) 1 tab Q6H PRN PO 08/15/15 15:45 11/17/15 04:16 (Sublimaze Inj) 50 mcg Q2H PRN IV PUSH 08/15/15 15:45 11/13/15 20:32 (ZyPREXA) 5 mg HS GT 08/15/15 21:00 11/17/15 21:22 (Santyl Oint) 1 applic DAILY TOP 08/21/15 09:00 11/18/15 09:13 (Levsin Liq) 0.125 mg Q4H PRN PO 09/06/15 11:00 11/11/15 20:28 (D50w (Vial) Inj) 25 ml UNSCH PRN IV PUSH 10/12/15 17:30 (Glucagon Inj) 1 mg UNSCH PRN OTHER 10/12/15 17:30 (NovoLIN R SUPPLEMENTAL SCALE) 1 Q6H SQ 10/12/15 18:00 11/18/15 13:34 Metoclopramide HCl 5 mg 5 mg Q8H PRN IV PUSH 10/13/15 08:30 Potassium Chloride 100 ml @ 50 mls/hr Q2H PRN IV 10/14/15 09:00 (KCl 20 Meq Premix Inj) 100 ml @ 50 mls/hr Q2H PRN IV 10/14/15 09:00 Potassium Chloride 40 meq 40 meq UNSCH PRN PO/TUBE 10/14/15 09:00 10/22/15 10:12 Potassium Chloride 100 ml @ 25 mls/hr UNSCH PRN IV 10/14/15 09:00 Potassium Chloride 100 ml @ 50 mls/hr Q2H PRN IV 10/14/15 09:00 (Magnesium Sulfate Inj/NS Inj) 100 ml @ 50 mls/hr UNSCH PRN IV 10/14/15 09:00 Magnesium Oxide 800 mg 800 mg UNSCH PRN PO 10/14/15 09:00 (Magnesium Sulfate Inj/NS Inj) 100 ml @ 50 mls/hr UNSCH PRN IV 10/14/15 09:00 Potassium Phosphate 2000 mg 2,000 mg Q4H PRN PO 10/14/15 09:00 10/14/15 17:49 (Sodium Phosphate Inj/NS 250 ml Inj) 250 ml @ 42 mls/hr UNSCH PRN IV 10/14/15 09:00 10/24/15 13:08 (KCl 40 Meq/30 ml Liq) 40 meq UNSCH PRN PO/TUBE 10/14/15 09:00 Potassium Phosphate 2000 mg 2,000 mg UNSCH PRN PO/TUBE 10/14/15 09:00 (Potassium Phosphate Inj/NS 250 ml Inj) 260 ml @ 42 mls/hr UNSCH PRN IV 10/14/15 09:00 10/17/15 10:18 (Proamatine) 2.5 mg BID G-TUBE 11/15/15 21:00 11/18/15 09:11 (Deltasone) 5 mg DAILY PO 11/18/15 09:00 11/18/15 09:11 Date of Insertion: Oct 05, 2015 A/P Problem List: (1) Sepsis due to urinary tract infection ICD Code: A41.9 Status: Resolved (2) Acute respiratory failure ICD Code: J96.00 Status: Resolved (3) Chronic respiratory failure ICD Code: J96.10 Status: Chronic (4) Parkinson disease ICD Code: G20 Status: Chronic (5) UTI (urinary tract infection) ICD Code: N39.0 Status: Acute (6) Encephalopathy ICD Code: G93.40 Status: Resolved Assessment and Plan Parkinson's disease Cognitive disorder Chronic encephalopathy Dementia Depression Contractures On no sedation. CT head 06/18/15: diffuse atrophy unchanged. No acute intracranial findings Continue Sinemet 25/100 q8 via PEG, Seroquel 50 mg twice a day, olanzapine 5 mg a night, Klonopin 2 mg every 8 hours, Paxil 20 daily Continue Lortab when necessary pain and fentanyl patch 50 g every 3 days for pain management. Fentanyl bolus prn breakthrough pain or if needed for turning/ nursing care/etc. Acute on chronic respiratory failure Chronic trach #8 Shiley distal XLT Pneumonia, aspiration (ESBL Klebsiella and Pseudomonas pneumonia) Right pneumothorax status post pigtail catheter 2 (resolved) On T piece since 10/30 with CPAP at night. Tolerating T piece as tolerated starting 11/01 including night time. Pulmonary Dr. Restrepo following. On Prednisone 10mg daily Exchanged to 8 Distal XLT on 08/15 to facilitate suctioning, trach care. Bronchodilators ( DuoNeb) CXR 10/18, 10/26: No acute pulmonary infiltrates. History of orthostasis History of CAD History dyslipidemia History of hypertension Decrease Midodrine 2.5 mg BID. Monitor HR and BP keep MAP>65mmHg. Chronic moderate protein energy malnutrition Dysphagia Status post PEG Internal hemorrhoids Gastroesophageal reflux disease - TF Jevity 1.5 @ 60ml/hr, on Reglan 5mg Q8 PRN for high residuals. - On Prevacid 30 mg per PEG tube daily for GERD - 10/11 KUB abdomen: PEG tube in place. Unremarkable bowel gas pattern. FEN/Renal: Nonobstructing left renal calculus - Monitor renal function, I/O's. electrolytes replacement per protocol. Aspiration pneumonia Cele UTI 10/19 Sputum: Pseudomonas- likely colonized 10/19 urine cx: Yeast species 10/12 BC: NGTD 10/11 BC: NGTD 10/11 Urine cx: C. Tropicalis 10/11 Sputum: ESBL Klebsiella and Pseudomonas pneumonia 10/10 Urine: C. Tropicalis 09/21 Urine cx: Pseudomonas ? colonized 09/19 Sputum cx: Pseudomonas, Kleb pneumonia ESBL pos Candiduria (cele tropicalis urine cx 08/17) ESBL positive Klebsiella/Pseudomonas pneumonia Stenotrophomonas in sputum 08/17 MRSA colonization Sepsis UTI Klebsiella ESBL positive (has been treated) C. Diff 027 Off abx s/p ( Merrem finished 10 day course 10/23) monitor for signs of infections ( Fever, WBC) ID service is following as needed- Dr. Enoc Moss. CXR 10/26 no acute changes. d/c vanco (11/14-11/15), stools are pasty Normocytic Anemia - Monitor CBC Bilateral lower extremity Contractures Stage III sacral decubitus present on admission - Wound care and PT on case Prophylaxis - GI - Prevacid - DVT - SCDs/ Lovenox. Discharge Planning Awaiting clinical improvement. Salazar Santa DO Nov 18, 2015 17:15
[2015-11-18] MEDS: ENOXAPARIN SODIUM 40 MG/0.4 ML SYRINGE SQ SCH (21:40)
[2015-11-18] MEDS: OLANZapine 5 MG TAB GT SCH (21:40)
[2015-11-19] VITALS (15 sets, daily range): BP systolic 123–145; BP diastolic 72–86; PULSE 63–99; RESP 20–28; TEMP 97.6–97.9; O2SAT 93–100
[2015-11-19] MEDS: FREE WATER G-TUBE SCH ×7 (04:00→23:56)
[2015-11-19] MEDS: clonazePAM 1 MG TAB PO SCH ×3 (05:04→21:50)
[2015-11-19] MEDS: CARBIDOPA/LEVODOPA 25 MG/100 MG TAB GT SCH ×3 (05:04→21:51)
[2015-11-19] MEDS: INSULIN NovoLIN REGULAR SUPPLEMENTAL SCALE SQ SCH ×5 (05:04→23:53)
[2015-11-19] MEDS: LANSOPRAZOLE SOLUTAB 30 MG TAB NG SCH (08:16)
[2015-11-19] MEDS: ARTIFICIAL TEARS OPTH SOLN 15 ML BTL EACH EYE SCH ×3 (08:16→18:00)
[2015-11-19] MEDS: predniSONE 5 MG TAB PO SCH (08:16)
[2015-11-19] MEDS: LACTOBACILLUS ACIDOPHILUS TAB PO SCH ×3 (08:16→18:00)
[2015-11-19] MEDS: PARoxetine HCL 20 MG TAB G-TUBE SCH (08:16)
[2015-11-19] MEDS: GABAPENTIN 300 MG CAP G-TUBE SCH ×2 (08:16→21:51)
[2015-11-19] MEDS: MIDODRINE 5 MG TAB G-TUBE SCH ×2 (08:16→21:51)
[2015-11-19] MEDS: QUEtiapine FUMARATE 25 MG TAB G-TUBE SCH ×2 (08:16→21:50)
[2015-11-19] MEDS: SODIUM CHLORIDE 0.9% FLUSH 5 ML FLUSH IVF SCH ×2 (08:17→21:00)
[2015-11-19] MEDS: CHLORHEXIDINE 0.12% (ORAL KIT) 15 ML CUP MT SCH ×2 (08:18→20:00)
[2015-11-19] MEDS: COLLAGENASE OINT 30 GM TUBE TOP SCH (08:27)
--- NOTE | 2015-11-19 12:49 | HHI.PR ---
Subjective Remarks Remains still on a T Bar at FIO2 28 %,. Responds to questions On tube feeds. at 40 CC. copious trach secretions. Objective Vital Signs Date Time Temp Pulse Resp B/P Pulse Ox O2 Delivery O2 Flow Rate FiO2 11/19/15 10:00 77 11/19/15 08:33 96 T-piece 6.00 28 11/19/15 08:00 80 11/19/15 08:00 97.9 80 24 129/82 100 11/19/15 08:00 100 T-Piece 28 11/19/15 06:00 84 11/19/15 05:00 100 T-piece 6.00 28 11/19/15 04:00 100 T-Piece 28 11/19/15 04:00 97.9 72 20 123/79 100 11/19/15 04:00 72 11/19/15 02:00 75 11/19/15 00:00 87 11/19/15 00:00 97.8 87 27 124/78 100 11/19/15 00:00 100 T-Piece 28 11/18/15 22:00 85 11/18/15 20:00 100 T-Piece 28 11/18/15 20:00 98.6 81 24 140/86 100 11/18/15 20:00 87 11/18/15 18:00 79 11/18/15 16:00 97.3 78 21 120/60 97 11/18/15 16:00 78 11/18/15 16:00 98 T-Piece 11/18/15 14:02 94 T-piece 11/18/15 14:00 80 I/O 11/18/15 11/18/15 11/18/15 11/19/15 11/19/15 11/19/15 06:59 14:59 22:59 06:59 14:59 22:59 Intake Total 334 ml 548 ml 330 ml 739 ml Output Total 150 ml 300 ml 175 ml 150 ml Balance 184 ml 248 ml 155 ml 589 ml Intake Oral 0 ml 0 ml 0 ml IV Total 0 ml 0 ml 0 ml 0 ml Tube Feeding 214 ml 428 ml 210 ml 259 ml Other 120 ml 120 ml 120 ml 480 ml Output Urine Total 150 ml 300 ml 175 ml 150 ml # Bowel Movements 2 2 2 2 Result Diagram: 11/18/15 0601 11/18/15 06 Objective Remarks This is a thin white male who is responsive and cooperative,with a trach tube in place. HEENT: Pupils are equal and reactive to light. No Throat secretions CHEST:Decreased breath sounds, with wheezes and Occ crackles at bases CARDIOVASCULAR: S1 and S2 is normal.No murmur. ABDOMEN: Soft, nondistended. BS +. He has a PEG tube in place. EXTREMITIES: No edema.muscle wasting. NEURO: Alert, and has weak extremities, but moves arms. .Reflexes not elicited.Skin is dry. Assessment and Plan Assessment and Plan IMPRESSION 1. Chronic Respiratory failure. 2. Sepsis, Aspiration, resolved . 3. Shock.Resolved. 4. Tracheobronchitis 5. Parkinson's disease 6. Dementia. 7. Severe Deconditioning. Plan : 1. Cont T Bar at 28 % all the time 2. Nebs qid , duoneb. 3.Cont Tube feeds at 40 CC 4. Cont prednisone 5 mg daily. 5. Levsin .25 mg tid for Secretions 6. Cont Trach toilet and lavage. 8. PT to help in activity 9. PM valve to talk 10. CBC, BMP Darren Kiser MD Nov 19, 2015 12:49
--- NOTE | 2015-11-19 17:28 | HHI.PR ---
Subjective Remarks The patient had increased secretions. Nursing was at the bedside. She stopped the patient's tube feeds. The patient appears uncomfortable. Objective Vitals Vital Signs Date Time Temp Pulse Resp B/P Pulse Ox O2 Delivery O2 Flow Rate FiO2 11/19/15 14:00 64 11/19/15 12:00 63 11/19/15 12:00 97.9 63 20 126/72 97 11/19/15 12:00 97 T-Piece 28 11/19/15 10:00 77 11/19/15 08:33 96 T-piece 6.00 28 11/19/15 08:00 80 11/19/15 08:00 97.9 80 24 129/82 100 11/19/15 08:00 100 T-Piece 11/19/15 06:00 84 11/19/15 05:00 100 T-piece 6.00 28 11/19/15 04:00 100 T-Piece 28 11/19/15 04:00 97.9 72 20 123/79 100 11/19/15 04:00 72 11/19/15 02:00 75 11/19/15 00:00 87 11/19/15 00:00 97.8 87 27 124/78 100 11/19/15 00:00 100 T-Piece 28 11/18/15 22:00 85 11/18/15 20:00 100 T-Piece 28 11/18/15 20:00 98.6 81 24 140/86 100 11/18/15 20:00 87 11/18/15 18:00 79 I/O 11/18/15 11/18/15 11/18/15 11/19/15 11/19/15 11/19/15 07:00 15:00 23:00 07:00 15:00 23:00 Intake Total 334 ml 548 ml 330 ml 739 ml 763 ml Output Total 150 ml 300 ml 175 ml 150 ml 500 ml Balance 184 ml 248 ml 155 ml 589 ml 263 ml Intake Oral 0 ml 0 ml 0 ml IV Total 0 ml 0 ml 0 ml 0 ml 0 ml Tube Feeding 214 ml 428 ml 210 ml 259 ml 363 ml Other 120 ml 120 ml 120 ml 480 ml 400 ml Output Urine Total 150 ml 300 ml 175 ml 150 ml 500 ml # Bowel Movements 2 2 2 2 2 Result Diagram: 10/12/16 0601 10/12/16 0601 Imaging Last Impressions Chest X-Ray 11/18/15 0600 Signed Impressions: Service Date/Time: Wednesday, November 18, 2015 02:22 - CONCLUSION: Normal examination. Tracheostomy tube is in good position. Nghia Mason MD Upper Extremity Ultrasound 10/13/15 0000 Signed Impressions: Service Date/Time: Tuesday, October 13, 2015 09:51 - CONCLUSION: 1. No evidence of deep venous thrombosis. John Anderson MD Abdomen X-Ray 10/12/15 0000 Signed Impressions: Service Date/Time: Monday, October 12, 2015 17:37 - CONCLUSION: 1. Gastrostomy tube in place 2. Unremarkable bowel gas pattern. Salazar Thurman MD Renal Ultrasound 10/07/15 0000 Signed Impressions: Service Date/Time: Wednesday, October 07, 2015 18:29 - CONCLUSION: 1. No acute findings. 3.6 cm left renal cyst. Putnam catheter in bladder. Amaury Ellsworth MD Tunnelled Chest Tube Removal 08/05/15 1100 Signed Impressions: Service Date/Time: Wednesday, August 05, 2015 11:00 - CONCLUSION: Uncomplicated chest tube removal. Blaine Jackson MD Chest Tube Change 07/31/15 0000 Signed Impressions: Service Date/Time: Friday, July 31, 2015 14:34 - CONCLUSION: Uncomplicated reposition of previously placed chest tube as above. Blaine Jackson MD Chest Tube Insertion 07/30/15 0000 Signed Impressions: Service Date/Time: July 14:50 - CONCLUSION: Uncomplicated chest tube placement as above. Blaine Jackson MD Catheter Change 07/27/15 0000 Signed Impressions: Service Date/Time: Monday, July 27, 2015 14:43 - CONCLUSION: Uncomplicated gastrostomy tube exchange as above. Blaine Jackson MD Chest CT 07/11/15 0000 Signed Impressions: Service Date/Time: Saturday, July 11, 2015 09:49 - CONCLUSION: Scattered patchy densities significantly improved from previous study. Tiny anterior right basilar pneumothorax. Right-sided chest tube in good position. Néstor Matamoros MD Head CT 06/18/15 5933 Signed Impressions: Service Date/Time: June 19:31 - CONCLUSION: Diffuse atrophy unchanged. No acute intracranial findings. Kush Briscoe MD Abdomen/Pelvis CT 06/18/15 190 Signed Impressions: Service Date/Time: June 19:36 - CONCLUSION: 1. Chronic nonspecific urinary bladder wall thickening. Bladder collapsed with Putnam catheter in place. 2. Chronic bilateral mid to lower lung zone groundglass opacity. 3. Nonobstructing left renal calculus. 4. Distended rectum. Kush Briscoe MD Objective Remarks GENERAL: Well-nourished, well-developed patient. SKIN: Warm and dry. HEAD: Normocephalic. EYES: No scleral icterus. No injection or drainage. NECK: Trach in place. CARDIOVASCULAR: Regular rate and rhythm without murmurs, gallops, or rubs. RESPIRATORY: + secretions. Moderate air entry. Scattered rhonchi. GASTROINTESTINAL: Abdomen soft, non-tender, nondistended. MUSCULOSKELETAL: No edema. Contractures and deformities of fingers. Stage III coccyx/sacral decubitus ulcer. NEURO: Unresponsive to voice, not following commands. Procedures 07/26- PEG replacement 07/29- right pigtail catheter placement for new pneumothorax Medications and IVs Current Medications Medications (Trade) Dose Ordered Sig/Jassi Route Start Time Stop Time Status Last Admin (NS Flush) 2 ml UNSCH PRN IVF 06/18/15 21:30 11/17/15 04:16 (NS Flush) 2 ml BID IVF 06/19/15 09:00 11/19/15 08:17 (Tylenol 650 Mg/ 20 ml Liq) 650 mg Q6H PRN TUBE 06/18/15 21:30 09/30/15 09:01 (Tears Naturale Opth Soln) 1 drop TID EACH EYE 06/19/15 09:00 11/19/15 14:03 (Zofran Inj) 4 mg Q6H PRN IV 06/18/15 21:30 11/04/15 13:59 (Sinemet 25-100 Mg) 1 tab Q8HR GT 06/19/15 06:00 11/19/15 14:02 (Neurontin) 300 mg BID G-TUBE 06/19/15 09:00 11/19/15 08:16 (Lactinex) 1 tab TID PO 06/19/15 09:00 11/19/15 14:02 (Paxil) 20 mg DAILY G-TUBE 06/19/15 09:00 11/19/15 08:16 (Pill Splitter) 1 ea UNSCH PRN OTHER 06/19/15 03:30 06/28/15 09:35 (Prevacid Odt) 30 mg DAILY NG 07/08/15 09:00 11/19/15 08:16 (KlonoPIN) 2 mg Q8HR PO 07/09/15 14:00 11/19/15 14:02 (SEROquel) 50 mg BID G-TUBE 07/18/15 09:00 11/19/15 08:16 (Morphine Inj) 2 mg Q3H PRN IV PUSH 07/28/15 00:45 11/15/15 03:16 (Peridex 0.12% Liq) 15 ml BID@08,20 MT 07/29/15 20:00 11/19/15 08:18 (Ativan Inj) 0.5 mg Q6H PRN IVP 08/04/15 13:00 11/17/15 04:16 (Lovenox Inj) 40 mg Q24H SQ 08/09/15 22:00 11/18/15 21:40 ([place] 5-325 Mg) 1 tab Q6H PRN PO 08/15/15 15:45 11/17/15 04:16 (Sublimaze Inj) 50 mcg Q2H PRN IV PUSH 08/15/15 15:45 11/13/15 20:32 (ZyPREXA) 5 mg HS GT 08/15/15 21:00 11/18/15 21:40 (Santyl Oint) 1 applic DAILY TOP 08/21/15 09:00 11/19/15 08:27 (Levsin Liq) 0.125 mg Q4H PRN PO 09/06/15 11:00 11/11/15 20:28 (D50w (Vial) Inj) 25 ml UNSCH PRN IV PUSH 10/12/15 17:30 (Glucagon Inj) 1 mg UNSCH PRN OTHER 10/12/15 17:30 (NovoLIN R SUPPLEMENTAL SCALE) 1 Q6H SQ 10/12/15 18:00 11/18/15 13:34 Metoclopramide HCl 5 mg 5 mg Q8H PRN IV PUSH 10/13/15 08:30 Potassium Chloride 100 ml @ 50 mls/hr Q2H PRN IV 10/14/15 09:00 (KCl 20 Meq Premix Inj) 100 ml @ 50 mls/hr Q2H PRN IV 10/14/15 09:00 Potassium Chloride 40 meq 40 meq UNSCH PRN PO/TUBE 10/14/15 09:00 10/22/15 10:12 Potassium Chloride 100 ml @ 25 mls/hr UNSCH PRN IV 10/14/15 09:00 Potassium Chloride 100 ml @ 50 mls/hr Q2H PRN IV 10/14/15 09:00 (Magnesium Sulfate Inj/NS Inj) 100 ml @ 50 mls/hr UNSCH PRN IV 10/14/15 09:00 Magnesium Oxide 800 mg 800 mg UNSCH PRN PO 10/14/15 09:00 (Magnesium Sulfate Inj/NS Inj) 100 ml @ 50 mls/hr UNSCH PRN IV 10/14/15 09:00 Potassium Phosphate 2000 mg 2,000 mg Q4H PRN PO 10/14/15 09:00 10/14/15 17:49 (Sodium Phosphate Inj/NS 250 ml Inj) 250 ml @ 42 mls/hr UNSCH PRN IV 10/14/15 09:00 10/24/15 13:08 (KCl 40 Meq/30 ml Liq) 40 meq UNSCH PRN PO/TUBE 10/14/15 09:00 Potassium Phosphate 2000 mg 2,000 mg UNSCH PRN PO/TUBE 10/14/15 09:00 (Potassium Phosphate Inj/NS 250 ml Inj) 260 ml @ 42 mls/hr UNSCH PRN IV 10/14/15 09:00 10/17/15 10:18 (Proamatine) 2.5 mg BID G-TUBE 11/15/15 21:00 11/19/15 08:16 (Deltasone) 5 mg DAILY PO 11/18/15 09:00 11/19/15 08:16 (Free Water) 200 ml Q4HR G-TUBE 11/19/15 00:00 11/19/15 12:00 Date of Insertion: Oct 05, 2015 A/P Problem List: (1) Sepsis due to urinary tract infection ICD Code: A41.9 Status: Resolved (2) Acute respiratory failure ICD Code: J96.00 Status: Resolved (3) Chronic respiratory failure ICD Code: J96.10 Status: Chronic (4) Parkinson disease ICD Code: G20 Status: Chronic (5) UTI (urinary tract infection) ICD Code: N39.0 Status: Acute (6) Encephalopathy ICD Code: G93.40 Status: Resolved Assessment and Plan Parkinson's disease Cognitive disorder Chronic encephalopathy Dementia Depression Contractures On no sedation. CT head 06/18/15: diffuse atrophy unchanged. No acute intracranial findings Continue Sinemet 25/100 q8 via PEG, Seroquel 50 mg twice a day, olanzapine 5 mg a night, Klonopin 2 mg every 8 hours, Paxil 20 daily Continue Lortab when necessary pain and fentanyl patch 50 g every 3 days for pain management. Fentanyl bolus prn breakthrough pain or if needed for turning/ nursing care/etc. Acute on chronic respiratory failure Chronic trach #8 Shiley distal XLT Pneumonia, aspiration (ESBL Klebsiella and Pseudomonas pneumonia) Right pneumothorax status post pigtail catheter 2 (resolved) On T piece since 10/30 with CPAP at night. Tolerating T piece as tolerated starting 11/01 including night time. Pulmonary Dr. Restrepo following. On Prednisone 10mg daily Exchanged to 8 Distal XLT on 08/15 to facilitate suctioning, trach care. Bronchodilators ( DuoNeb) CXR 10/18, 10/26: No acute pulmonary infiltrates. - Repeat chest x-ray 11/19/15 as the patient has increased secretions. Check a sputum culture. History of orthostasis History of CAD History dyslipidemia History of hypertension Decrease Midodrine 2.5 mg BID. Monitor HR and BP keep MAP>65mmHg. Chronic moderate protein energy malnutrition Dysphagia Status post PEG Internal hemorrhoids Gastroesophageal reflux disease - TF Jevity 1.5 @ 60ml/hr, on Reglan 5mg Q8 PRN for high residuals. Holding tube feeds 11/19/15 because of concern for aspiration. - On Prevacid 30 mg per PEG tube daily for GERD - 10/11 KUB abdomen: PEG tube in place. Unremarkable bowel gas pattern. FEN/Renal: Nonobstructing left renal calculus - Monitor renal function, I/O's. electrolytes replacement per protocol. Aspiration pneumonia Cele UTI 10/19 Sputum: Pseudomonas- likely colonized 10/19 urine cx: Yeast species 10/12 BC: NGTD 10/11 BC: NGTD 10/11 Urine cx: C. Tropicalis 10/11 Sputum: ESBL Klebsiella and Pseudomonas pneumonia 10/10 Urine: C. Tropicalis 09/21 Urine cx: Pseudomonas ? colonized 09/19 Sputum cx: Pseudomonas, Kleb pneumonia ESBL pos Candiduria (cele tropicalis urine cx 08/17) ESBL positive Klebsiella/Pseudomonas pneumonia Stenotrophomonas in sputum 08/17 MRSA colonization Sepsis UTI Klebsiella ESBL positive (has been treated) C. Diff 027 Off abx s/p ( Merrem finished 10 day course 10/23) monitor for signs of infections ( Fever, WBC) ID service is following as needed- Dr. Enoc Moss. CXR 10/26 no acute changes. d/c vanco (11/14-11/15), stools are pasty - Repeat chest x-ray and sputum culture 11/18. Normocytic Anemia - Monitor CBC Bilateral lower extremity Contractures Stage III sacral decubitus present on admission - Wound care and PT on case Prophylaxis - GI - Prevacid - DVT - SCDs/ Lovenox. Discharge Planning Awaiting clinical improvement. Salazar Santa DO Nov 19, 2015 17:28
--- NOTE | 2015-11-19 21:36 | RADRPT ---
EXAM DATE/TIME: 11/19/2015 20:45 [facility] COMPARISON: CHEST SINGLE AP, November 18, 2015, 2:22. INDICATIONS : Dyspnea. MEDICAL HISTORY : None. SURGICAL HISTORY : None. ENCOUNTER: Initial ACUITY: 1 day PAIN SCORE: Non-responsive. LOCATION: Bilateral chest FINDINGS: Tracheostomy is stable. Lungs are clear. No effusion suspected. Cardiomediastinal contours are unchan ged. CONCLUSION: No acute disease. Erlin Mack MD on November 19, 2015 at 21:31 Board Certified Radiologist. This report was verified electronically.
[2015-11-19] MEDS: ENOXAPARIN SODIUM 40 MG/0.4 ML SYRINGE SQ SCH (21:50)
[2015-11-19] MEDS: OLANZapine 5 MG TAB GT SCH (21:51)
[2015-11-20] VITALS (12 sets, daily range): BP systolic 122–143; BP diastolic 77–90; PULSE 63–88; RESP 24–33; TEMP 97.2–98.1; O2SAT 94–99
[2015-11-20] MEDS: FREE WATER G-TUBE SCH ×6 (04:00→22:51)
[2015-11-20] MEDS: clonazePAM 1 MG TAB PO SCH ×3 (05:49→20:49)
[2015-11-20] MEDS: CARBIDOPA/LEVODOPA 25 MG/100 MG TAB GT SCH ×3 (05:49→20:49)
[2015-11-20] MEDS: INSULIN NovoLIN REGULAR SUPPLEMENTAL SCALE SQ SCH ×4 (06:00→22:50)
[2015-11-20] MEDS: LANSOPRAZOLE SOLUTAB 30 MG TAB NG SCH (08:45)
[2015-11-20] MEDS: PARoxetine HCL 20 MG TAB G-TUBE SCH (08:45)
[2015-11-20] MEDS: predniSONE 5 MG TAB PO SCH (08:45)
[2015-11-20] MEDS: QUEtiapine FUMARATE 25 MG TAB G-TUBE SCH ×2 (08:45→20:49)
[2015-11-20] MEDS: LACTOBACILLUS ACIDOPHILUS TAB PO SCH ×3 (08:45→17:09)
[2015-11-20] MEDS: GABAPENTIN 300 MG CAP G-TUBE SCH ×2 (08:45→20:50)
[2015-11-20] MEDS: MIDODRINE 5 MG TAB G-TUBE SCH ×2 (08:45→20:49)
[2015-11-20] MEDS: ARTIFICIAL TEARS OPTH SOLN 15 ML BTL EACH EYE SCH ×3 (08:46→17:09)
[2015-11-20] MEDS: COLLAGENASE OINT 30 GM TUBE TOP SCH (11:08)
--- NOTE | 2015-11-20 11:18 | HHI.PR ---
Subjective Remarks Remains still on a T Bar at FIO2 28 %,. Vomited once and had some tube feeds in trach. Responds to questions Off tube feeds. copious trach secretions. Objective Vital Signs Date Time Temp Pulse Resp B/P Pulse Ox O2 Delivery O2 Flow Rate FiO2 11/20/15 10:00 81 11/20/15 08:00 77 11/20/15 06:00 96 T-piece 28 11/20/15 04:00 97.2 76 33 143/90 99 11/20/15 04:00 76 11/20/15 04:00 99 T-Piece 28 11/20/15 00:00 95 T-Piece 28 11/20/15 00:00 97.8 88 31 122/77 96 11/20/15 00:00 88 11/19/15 22:00 93 11/19/15 20:00 95 T-Piece 28 11/19/15 20:00 99 11/19/15 20:00 97.6 99 24 141/86 93 11/19/15 19:55 94 T-piece 28 11/19/15 18:00 93 11/19/15 16:00 97.7 92 28 141/86 93 11/19/15 16:00 97 T-Piece 28 11/19/15 16:00 92 11/19/15 14:00 64 11/19/15 12:00 63 11/19/15 12:00 97.9 63 20 126/72 97 11/19/15 12:00 97 T-Piece 28 I/O 11/19/15 11/19/15 11/19/15 11/20/15 11/20/15 11/20/15 07:00 15:00 23:00 07:00 15:00 23:00 Intake Total 739 ml 763 ml 400 ml 400 ml Output Total 150 ml 500 ml 300 ml 250 ml Balance 589 ml 263 ml 100 ml 150 ml Intake Oral 0 ml 0 ml 0 ml IV Total 0 ml 0 ml 0 ml 0 ml Tube Feeding 259 ml 363 ml 0 ml 0 ml Other 480 ml 400 ml 400 ml 400 ml Output Urine Total 150 ml 500 ml 300 ml 250 ml # Bowel Movements 2 2 2 3 Result Diagram: 11/18/15 0611/18/15600 Objective Remarks This is a thin white male who is responsive and cooperative,with a trach tube in place. HEENT: Pupils are equal and reactive to light. No Throat secretions CHEST:Decreased breath sounds, with bilat wheezes and Occ crackles at bases CARDIOVASCULAR: S1 and S2 is normal.No murmur. ABDOMEN: Soft, nondistended. BS +. He has a PEG tube in place. EXTREMITIES: No edema.muscle wasting. NEURO: Alert, and has weak extremities, but moves arms. .Reflexes not elicited.Skin is dry. Assessment and Plan Assessment and Plan IMPRESSION 1. Chronic Respiratory failure. 2. Sepsis, Aspiration, resolved . 3. Shock.Resolved. 4. Tracheobronchitis 5. Parkinson's disease 6. Dementia. 7. Severe Deconditioning. Plan : 1. Cont T Bar at 28 % all the time 2. Nebs qid , duoneb. 3. resume tube feeds after 4 hrs at 30 Cc and Keep Head end up 45 degrees 4. Cont prednisone 5 mg daily. 5. Levsin .25 mg tid for Secretions 6. Cont Trach toilet and lavage. 8. PT to help in activity 9. PM valve to talk 10. CXR today Darren Kiser MD Nov 20, 2015 11:18
--- NOTE | 2015-11-20 17:35 | HHI.PR ---
Subjective Remarks The patient appeared comfortable. No copious trach secretions noted. Discussed with nursing. Objective Vitals Vital Signs Date Time Temp Pulse Resp B/P Pulse Ox O2 Delivery O2 Flow Rate FiO2 11/20/15 16:00 80 11/20/15 16:00 98.0 80 26 136/87 97 11/20/15 16:00 99 T-Piece 28 11/20/15 14:00 63 11/20/15 12:00 69 11/20/15 12:00 99 T-Piece 28 11/20/15 12:00 98.1 69 28 134/79 94 11/20/15 10:00 81 11/20/15 08:00 97.8 77 26 128/78 98 11/20/15 08:00 98 T-Piece 28 11/20/15 08:00 77 11/20/15 06:00 96 T-piece 28 11/20/15 04:00 97.2 76 33 143/90 99 11/20/15 04:00 76 11/20/15 04:00 99 T-Piece 11/20/15 00:00 95 T-Piece 28 11/20/15 00:00 97.8 88 31 122/77 96 11/20/15 00:00 88 11/19/15 22:00 93 11/19/15 20:00 95 T-Piece 28 11/19/15 20:00 99 11/19/15 20:00 97.6 99 24 141/86 93 11/19/15 19:55 94 T-piece 11/19/15 18:00 93 I/O 11/19/15 11/19/15 11/19/15 11/20/15 11/20/15 11/20/15 07:00 15:00 23:00 07:00 15:00 23:00 Intake Total 739 ml 763 ml 400 ml 400 ml 380 ml Output Total 150 ml 500 ml 300 ml 250 ml 500 ml Balance 589 ml 263 ml 100 ml 150 ml -120 ml Intake Oral 0 ml 0 ml 0 ml IV Total 0 ml 0 ml 0 ml 0 ml Tube Feeding 259 ml 363 ml 0 ml 0 ml Other 480 ml 400 ml 400 ml 400 ml 380 ml Output Urine Total 150 ml 500 ml 300 ml 250 ml 500 ml # Bowel Movements 2 2 2 3 3 Result Diagram: 10/12/16 0601 10/12/16 0601 Imaging Last Impressions Chest X-Ray 11/19/15 0000 Signed Impressions: Service Date/Time: November 20:45 - CONCLUSION: No acute disease. Erlin Mack MD Upper Extremity Ultrasound 10/13/15 0000 Signed Impressions: Service Date/Time: Tuesday, October 13, 2015 09:51 - CONCLUSION: 1. No evidence of deep venous thrombosis. John Anderson MD Abdomen X-Ray 10/12/15 0000 Signed Impressions: Service Date/Time: Monday, October 12, 2015 17:37 - CONCLUSION: 1. Gastrostomy tube in place 2. Unremarkable bowel gas pattern. Salazar Thurman MD Renal Ultrasound 10/07/15 0000 Signed Impressions: Service Date/Time: Wednesday, October 07, 2015 18:29 - CONCLUSION: 1. No acute findings. 3.6 cm left renal cyst. Putnam catheter in bladder. Amaury Ellsworth MD Tunnelled Chest Tube Removal 08/05/15 1100 Signed Impressions: Service Date/Time: Wednesday, August 05, 2015 11:00 - CONCLUSION: Uncomplicated chest tube removal. Blaine Jackson MD Chest Tube Change 07/31/15 0000 Signed Impressions: Service Date/Time: Friday, July 31, 2015 14:34 - CONCLUSION: Uncomplicated reposition of previously placed chest tube as above. Blaine Jackson MD Chest Tube Insertion 07/30/15 0000 Signed Impressions: Service Date/Time: July 14:50 - CONCLUSION: Uncomplicated chest tube placement as above. Blaine Jackson MD Catheter Change 07/27/15 0000 Signed Impressions: Service Date/Time: Monday, July 27, 2015 14:43 - CONCLUSION: Uncomplicated gastrostomy tube exchange as above. Blaine Jackson MD Chest CT 07/11/15 0000 Signed Impressions: Service Date/Time: Saturday, July 11, 2015 09:49 - CONCLUSION: Scattered patchy densities significantly improved from previous study. Tiny anterior right basilar pneumothorax. Right-sided chest tube in good position. Néstor Matamoros MD Head CT 06/18/15 4063 Signed Impressions: Service Date/Time: June 19:31 - CONCLUSION: Diffuse atrophy unchanged. No acute intracranial findings. Kush Briscoe MD Abdomen/Pelvis CT 06/18/15 2147 Signed Impressions: Service Date/Time: June 19:36 - CONCLUSION: 1. Chronic nonspecific urinary bladder wall thickening. Bladder collapsed with Putnam catheter in place. 2. Chronic bilateral mid to lower lung zone groundglass opacity. 3. Nonobstructing left renal calculus. 4. Distended rectum. Kush Briscoe MD Objective Remarks GENERAL: Well-nourished, well-developed patient. SKIN: Warm and dry. HEAD: Normocephalic. EYES: No scleral icterus. No injection or drainage. NECK: Trach in place. CARDIOVASCULAR: Regular rate and rhythm without murmurs, gallops, or rubs. RESPIRATORY: + secretions. Moderate air entry. Scattered rhonchi. GASTROINTESTINAL: Abdomen soft, non-tender, nondistended. MUSCULOSKELETAL: No edema. Contractures and deformities of fingers. Stage III coccyx/sacral decubitus ulcer. NEURO: Unresponsive to voice, not following commands. Procedures 07/26- PEG replacement 07/29- right pigtail catheter placement for new pneumothorax Medications and IVs Current Medications Medications (Trade) Dose Ordered Sig/Jassi Route Start Time Stop Time Status Last Admin (NS Flush) 2 ml UNSCH PRN IVF 06/18/15 21:30 11/17/15 04:16 (NS Flush) 2 ml BID IVF 06/19/15 09:00 11/19/15 21:00 (Tylenol 650 Mg/ 20 ml Liq) 650 mg Q6H PRN TUBE 06/18/15 21:30 09/30/15 09:01 (Tears Naturale Opth Soln) 1 drop TID EACH EYE 06/19/15 09:00 11/20/15 17:09 (Zofran Inj) 4 mg Q6H PRN IV 06/18/15 21:30 11/04/15 13:59 (Sinemet 25-100 Mg) 1 tab Q8HR GT 06/19/15 06:00 11/20/15 14:48 (Neurontin) 300 mg BID G-TUBE 06/19/15 09:00 11/20/15 08:45 (Lactinex) 1 tab TID PO 06/19/15 09:00 11/20/15 17:09 (Paxil) 20 mg DAILY G-TUBE 06/19/15 09:00 11/20/15 08:45 (Pill Splitter) 1 ea UNSCH PRN OTHER 06/19/15 03:30 06/28/15 09:35 (Prevacid Odt) 30 mg DAILY NG 07/08/15 09:00 11/20/15 08:45 (KlonoPIN) 2 mg Q8HR PO 07/09/15 14:00 11/20/15 14:48 (SEROquel) 50 mg BID G-TUBE 07/18/15 09:00 11/20/15 08:45 (Morphine Inj) 2 mg Q3H PRN IV PUSH 07/28/15 00:45 11/15/15 03:16 (Peridex 0.12% Liq) 15 ml BID@08,20 MT 07/29/15 20:00 11/19/15 20:00 (Ativan Inj) 0.5 mg Q6H PRN IVP 08/04/15 13:00 11/17/15 04:16 (Lovenox Inj) 40 mg Q24H SQ 08/09/15 22:00 11/19/15 21:50 ([place] 5-325 Mg) 1 tab Q6H PRN PO 08/15/15 15:45 11/17/15 04:16 (Sublimaze Inj) 50 mcg Q2H PRN IV PUSH 08/15/15 15:45 11/19/15 17:36 (ZyPREXA) 5 mg HS GT 08/15/15 21:00 11/19/15 21:51 (Santyl Oint) 1 applic DAILY TOP 08/21/15 09:00 11/20/15 11:08 (Levsin Liq) 0.125 mg Q4H PRN PO 09/06/15 11:00 11/11/15 20:28 (D50w (Vial) Inj) 25 ml UNSCH PRN IV PUSH 10/12/15 17:30 (Glucagon Inj) 1 mg UNSCH PRN OTHER 10/12/15 17:30 (NovoLIN R SUPPLEMENTAL SCALE) 1 Q6H SQ 10/12/15 18:00 11/18/15 13:34 Metoclopramide HCl 5 mg 5 mg Q8H PRN IV PUSH 10/13/15 08:30 Potassium Chloride 100 ml @ 50 mls/hr Q2H PRN IV 10/14/15 09:00 (KCl 20 Meq Premix Inj) 100 ml @ 50 mls/hr Q2H PRN IV 10/14/15 09:00 Potassium Chloride 40 meq 40 meq UNSCH PRN PO/TUBE 10/14/15 09:00 10/22/15 10:12 Potassium Chloride 100 ml @ 25 mls/hr UNSCH PRN IV 10/14/15 09:00 Potassium Chloride 100 ml @ 50 mls/hr Q2H PRN IV 10/14/15 09:00 (Magnesium Sulfate Inj/NS Inj) 100 ml @ 50 mls/hr UNSCH PRN IV 10/14/15 09:00 Magnesium Oxide 800 mg 800 mg UNSCH PRN PO 10/14/15 09:00 (Magnesium Sulfate Inj/NS Inj) 100 ml @ 50 mls/hr UNSCH PRN IV 10/14/15 09:00 Potassium Phosphate 2000 mg 2,000 mg Q4H PRN PO 10/14/15 09:00 10/14/15 17:49 (Sodium Phosphate Inj/NS 250 ml Inj) 250 ml @ 42 mls/hr UNSCH PRN IV 10/14/15 09:00 10/24/15 13:08 (KCl 40 Meq/30 ml Liq) 40 meq UNSCH PRN PO/TUBE 10/14/15 09:00 Potassium Phosphate 2000 mg 2,000 mg UNSCH PRN PO/TUBE 10/14/15 09:00 (Potassium Phosphate Inj/NS 250 ml Inj) 260 ml @ 42 mls/hr UNSCH PRN IV 10/14/15 09:00 10/17/15 10:18 (Proamatine) 2.5 mg BID G-TUBE 11/15/15 21:00 11/20/15 08:45 (Deltasone) 5 mg DAILY PO 11/18/15 09:00 11/20/15 08:45 (Free Water) 200 ml Q4HR G-TUBE 11/19/15 00:00 11/20/15 14:48 Date of Insertion: Oct 05, 2015 A/P Problem List: (1) Sepsis due to urinary tract infection ICD Code: A41.9 Status: Resolved (2) Acute respiratory failure ICD Code: J96.00 Status: Resolved (3) Chronic respiratory failure ICD Code: J96.10 Status: Chronic (4) Parkinson disease ICD Code: G20 Status: Chronic (5) UTI (urinary tract infection) ICD Code: N39.0 Status: Acute (6) Encephalopathy ICD Code: G93.40 Status: Resolved Assessment and Plan Parkinson's disease Cognitive disorder Chronic encephalopathy Dementia Depression Contractures On no sedation. CT head 06/18/15: diffuse atrophy unchanged. No acute intracranial findings Continue Sinemet 25/100 q8 via PEG, Seroquel 50 mg twice a day, olanzapine 5 mg a night, Klonopin 2 mg every 8 hours, Paxil 20 daily Continue Lortab when necessary pain and fentanyl patch 50 g every 3 days for pain management. Fentanyl bolus prn breakthrough pain or if needed for turning/ nursing care/etc. Acute on chronic respiratory failure Chronic trach #8 Shiley distal XLT Pneumonia, aspiration (ESBL Klebsiella and Pseudomonas pneumonia) Right pneumothorax status post pigtail catheter 2 (resolved) On T piece since 10/30 with CPAP at night. Tolerating T piece as tolerated starting 11/01 including night time. Pulmonary Dr. Restrepo following. On Prednisone 10mg daily Exchanged to 8 Distal XLT on 08/15 to facilitate suctioning, trach care. Bronchodilators ( DuoNeb) CXR 10/18, 10/26: No acute pulmonary infiltrates. - Repeat chest x-ray 11/19/15 stable. Sputum culture pending. History of orthostasis History of CAD History dyslipidemia History of hypertension Decrease Midodrine 2.5 mg BID. Monitor HR and BP keep MAP>65mmHg. Chronic moderate protein energy malnutrition Dysphagia Status post PEG Internal hemorrhoids Gastroesophageal reflux disease - TF Jevity 1.5 @ 60ml/hr, on Reglan 5mg Q8 PRN for high residuals. Held tube feeds 11/19/15 because of concern for aspiration. Resume 11/19 at a lower rate. - On Prevacid 30 mg per PEG tube daily for GERD - 10/11 KUB abdomen: PEG tube in place. Unremarkable bowel gas pattern. FEN/Renal: Nonobstructing left renal calculus - Monitor renal function, I/O's. electrolytes replacement per protocol. Aspiration pneumonia Cele UTI 10/19 Sputum: Pseudomonas- likely colonized 10/19 urine cx: Yeast species 10/12 BC: NGTD 10/11 BC: NGTD 10/11 Urine cx: C. Tropicalis 10/11 Sputum: ESBL Klebsiella and Pseudomonas pneumonia 10/10 Urine: C. Tropicalis 09/21 Urine cx: Pseudomonas ? colonized 09/19 Sputum cx: Pseudomonas, Kleb pneumonia ESBL pos Candiduria (cele tropicalis urine cx 08/17) ESBL positive Klebsiella/Pseudomonas pneumonia Stenotrophomonas in sputum 08/17 MRSA colonization Sepsis UTI Klebsiella ESBL positive (has been treated) C. Diff 027 Off abx s/p ( Merrem finished 10 day course 10/23) monitor for signs of infections ( Fever, WBC) ID service is following as needed- Dr. Enoc Moss. CXR 10/26 no acute changes. d/c vanco (11/14-11/15), stools are pasty - Repeat sputum culture 11/18. Normocytic Anemia - Monitor CBC Bilateral lower extremity Contractures Stage III sacral decubitus present on admission - Wound care and PT on case Prophylaxis - GI - Prevacid - DVT - SCDs/ Lovenox. Discharge Planning Awaiting clinical improvement. Salazar Santa DO Nov 20, 2015 17:35
[2015-11-20] MEDS: CHLORHEXIDINE 0.12% (ORAL KIT) 15 ML CUP MT SCH (20:00)
[2015-11-20] MEDS: ENOXAPARIN SODIUM 40 MG/0.4 ML SYRINGE SQ SCH (20:48)
[2015-11-20] MEDS: SODIUM CHLORIDE 0.9% FLUSH 5 ML FLUSH IVF SCH (20:48)
[2015-11-20] MEDS: OLANZapine 5 MG TAB GT SCH (20:49)
[2015-11-20] MEDS: ACETAMINOPHEN/HYDROcodone 325 MG/5 MG TAB PO PRN (21:03)
[2015-11-21] VITALS (8 sets, daily range): BP systolic 102–136; BP diastolic 57–84; PULSE 71–82; RESP 14–25; TEMP 97.6–98.6; O2SAT 94–100
[2015-11-21] MEDS: MORPHINE SULFATE 4 MG/ML INJ IV PUSH PRN ×2 (00:50→12:35)
[2015-11-21] MEDS: FREE WATER G-TUBE SCH ×5 (04:00→20:00)
[2015-11-21] MEDS: CARBIDOPA/LEVODOPA 25 MG/100 MG TAB GT SCH ×3 (05:27→20:47)
[2015-11-21] MEDS: clonazePAM 1 MG TAB PO SCH ×3 (05:27→20:47)
[2015-11-21] MEDS: INSULIN NovoLIN REGULAR SUPPLEMENTAL SCALE SQ SCH ×3 (05:31→17:23)
[2015-11-21] MEDS: CHLORHEXIDINE 0.12% (ORAL KIT) 15 ML CUP MT SCH ×2 (08:00→20:46)
[2015-11-21] MEDS: QUEtiapine FUMARATE 25 MG TAB G-TUBE SCH ×2 (08:41→20:46)
[2015-11-21] MEDS: ACETAMINOPHEN/HYDROcodone 325 MG/5 MG TAB PO PRN ×2 (08:41→17:24)
[2015-11-21] MEDS: PARoxetine HCL 20 MG TAB G-TUBE SCH (08:41)
[2015-11-21] MEDS: LANSOPRAZOLE SOLUTAB 30 MG TAB NG SCH (08:41)
[2015-11-21] MEDS: GABAPENTIN 300 MG CAP G-TUBE SCH ×2 (08:41→20:47)
[2015-11-21] MEDS: LACTOBACILLUS ACIDOPHILUS TAB PO SCH ×3 (08:42→17:23)
[2015-11-21] MEDS: MIDODRINE 5 MG TAB G-TUBE SCH ×2 (08:42→20:47)
[2015-11-21] MEDS: predniSONE 5 MG TAB PO SCH (08:42)
[2015-11-21] MEDS: ARTIFICIAL TEARS OPTH SOLN 15 ML BTL EACH EYE SCH ×3 (08:43→17:24)
[2015-11-21] MEDS: COLLAGENASE OINT 30 GM TUBE TOP SCH (08:43)
[2015-11-21] MEDS: SODIUM CHLORIDE 0.9% FLUSH 5 ML FLUSH IVF SCH ×2 (08:43→20:47)
--- NOTE | 2015-11-21 12:01 | HHI.PR ---
Subjective Remarks The patient appeared comfortable. He did not seem to have many secretions today. Objective Vitals Vital Signs Date Time Temp Pulse Resp B/P Pulse Ox O2 Delivery O2 Flow Rate FiO2 11/21/15 09:41 22 11/21/15 08:08 94 T-piece 6.00 28 11/21/15 08:00 98.0 82 22 125/76 94 11/21/15 08:00 82 11/21/15 08:00 94 T-Piece 28 11/21/15 04:00 73 11/21/15 04:00 97.6 73 17 136/83 95 11/21/15 04:00 95 T-Piece 28 11/21/15 00:00 78 11/21/15 00:00 94 T-Piece 28 11/21/15 00:00 97.9 78 17 121/75 94 11/20/15 20:23 98 T-piece 5.00 28 11/20/15 20:00 97.6 84 24 143/88 98 11/20/15 20:00 98 T-Piece 28 11/20/15 20:00 84 11/20/15 18:00 81 11/20/15 16:00 80 11/20/15 16:00 98.0 80 26 136/87 97 11/20/15 16:00 99 T-Piece 28 11/20/15 14:00 63 11/20/15 12:00 69 11/20/15 12:00 99 T-Piece 28 11/20/15 12:00 98.1 69 28 134/79 94 I/O 11/20/15 11/20/15 11/20/15 11/21/15 11/21/15 11/21/15 07:00 15:00 23:00 07:00 15:00 23:00 Intake Total 400 ml 380 ml 540 ml 550 ml Output Total 250 ml 500 ml 240 ml 400 ml Balance 150 ml -120 ml 300 ml 150 ml Intake Oral 0 ml 0 ml 0 ml IV Total 0 ml 0 ml 0 ml Tube Feeding 0 ml 140 ml 150 ml Other 400 ml 380 ml 400 ml 400 ml Output Urine Total 250 ml 500 ml 240 ml 400 ml # Bowel Movements 3 3 3 2 Result Diagram: 11/18/15 0601 11/18/15 0601 Imaging Last Impressions Chest X-Ray 11/19/15 0000 Signed Impressions: Service Date/Time: November 20:45 - CONCLUSION: No acute disease. Erlin Mack MD Upper Extremity Ultrasound 10/13/15 0000 Signed Impressions: Service Date/Time: Tuesday, October 13, 2015 09:51 - CONCLUSION: 1. No evidence of deep venous thrombosis. John Anderson MD Abdomen X-Ray 10/12/15 0000 Signed Impressions: Service Date/Time: Monday, October 12, 2015 17:37 - CONCLUSION: 1. Gastrostomy tube in place 2. Unremarkable bowel gas pattern. Salazar Thurman MD Renal Ultrasound 10/07/15 0000 Signed Impressions: Service Date/Time: Wednesday, October 07, 2015 18:29 - CONCLUSION: 1. No acute findings. 3.6 cm left renal cyst. Putnam catheter in bladder. Amaury Ellsworth MD Tunnelled Chest Tube Removal 08/05/15 1100 Signed Impressions: Service Date/Time: Wednesday, August 05, 2015 11:00 - CONCLUSION: Uncomplicated chest tube removal. Blaine Jackson MD Chest Tube Change 07/31/15 0000 Signed Impressions: Service Date/Time: Friday, July 31, 2015 14:34 - CONCLUSION: Uncomplicated reposition of previously placed chest tube as above. Blaine Jackson MD Chest Tube Insertion 07/30/15 0000 Signed Impressions: Service Date/Time: July 14:50 - CONCLUSION: Uncomplicated chest tube placement as above. Blaine Jackson MD Catheter Change 07/27/15 0000 Signed Impressions: Service Date/Time: Monday, July 27, 2015 14:43 - CONCLUSION: Uncomplicated gastrostomy tube exchange as above. Blaine Jackson MD Chest CT 07/11/15 Signed Impressions: Service Date/Time: Saturday, July 11, 2015 09:49 - CONCLUSION: Scattered patchy densities significantly improved from previous study. Tiny anterior right basilar pneumothorax. Right-sided chest tube in good position. Néstor Matamoros MD Head CT 06/18/151902 Signed Impressions: Service Date/Time: June 19:31 - CONCLUSION: Diffuse atrophy unchanged. No acute intracranial findings. Kush Briscoe MD Abdomen/Pelvis CT 06/18/151902 Signed Impressions: Service Date/Time: June 19:36 - CONCLUSION: 1. Chronic nonspecific urinary bladder wall thickening. Bladder collapsed with Putnam catheter in place. 2. Chronic bilateral mid to lower lung zone groundglass opacity. 3. Nonobstructing left renal calculus. 4. Distended rectum. Kush Briscoe MD Objective Remarks GENERAL: Well-nourished, well-developed patient. SKIN: Warm and dry. HEAD: Normocephalic. EYES: No scleral icterus. No injection or drainage. NECK: Trach in place. CARDIOVASCULAR: Regular rate and rhythm without murmurs, gallops, or rubs. RESPIRATORY: Decreased secretions. Moderate air entry. Scattered rhonchi. GASTROINTESTINAL: Abdomen soft, non-tender, nondistended. MUSCULOSKELETAL: No edema. Contractures and deformities of fingers. Stage III coccyx/sacral decubitus ulcer. NEURO: Unresponsive to voice, not following commands. Procedures 07/26- PEG replacement 07/29- right pigtail catheter placement for new pneumothorax Medications and IVs Current Medications Medications (Trade) Dose Ordered Sig/Jassi Route Start Time Stop Time Status Last Admin (NS Flush) 2 ml UNSCH PRN IVF 06/18/15 21:30 11/17/15 04:16 (NS Flush) 2 ml BID IVF 06/19/15 09:00 11/21/15 08:43 (Tylenol 650 Mg/ 20 ml Liq) 650 mg Q6H PRN TUBE 06/18/15 21:30 09/30/15 09:01 (Tears Naturale Opth Soln) 1 drop TID EACH EYE 06/19/15 09:00 11/21/15 08:43 (Zofran Inj) 4 mg Q6H PRN IV 06/18/15 21:30 11/04/15 13:59 (Sinemet 25-100 Mg) 1 tab Q8HR GT 06/19/15 06:00 11/21/15 05:27 (Neurontin) 300 mg BID G-TUBE 06/19/15 09:00 11/21/15 08:41 (Lactinex) 1 tab TID PO 06/19/15 09:00 11/21/15 08:42 (Paxil) 20 mg DAILY G-TUBE 06/19/15 09:00 11/21/15 08:41 (Pill Splitter) 1 ea UNSCH PRN OTHER 06/19/15 03:30 06/28/15 09:35 (Prevacid Odt) 30 mg DAILY NG 07/08/15 09:00 11/21/15 08:41 (KlonoPIN) 2 mg Q8HR PO 07/09/15 14:00 11/21/15 05:27 (SEROquel) 50 mg BID G-TUBE 07/18/15 09:00 11/21/15 08:41 (Morphine Inj) 2 mg Q3H PRN IV PUSH 07/28/15 00:45 11/21/15 00:50 (Peridex 0.12% Liq) 15 ml BID@08,20 MT 07/29/15 20:00 11/21/15 08:00 (Ativan Inj) 0.5 mg Q6H PRN IVP 08/04/15 13:00 11/17/15 04:16 (Lovenox Inj) 40 mg Q24H SQ 08/09/15 22:00 11/20/15 20:48 ([place] 5-325 Mg) 1 tab Q6H PRN PO 08/15/15 15:45 11/21/15 08:41 (Sublimaze Inj) 50 mcg Q2H PRN IV PUSH 08/15/15 15:45 11/19/15 17:36 (ZyPREXA) 5 mg HS GT 08/15/15 21:00 11/20/15 20:49 (Santyl Oint) 1 applic DAILY TOP 08/21/15 09:00 11/21/15 08:43 (Levsin Liq) 0.125 mg Q4H PRN PO 09/06/15 11:00 11/11/15 20:28 (D50w (Vial) Inj) 25 ml UNSCH PRN IV PUSH 10/12/15 17:30 (Glucagon Inj) 1 mg UNSCH PRN OTHER 10/12/15 17:30 (NovoLIN R SUPPLEMENTAL SCALE) 1 Q6H SQ 10/12/15 18:00 11/18/15 13:34 Metoclopramide HCl 5 mg 5 mg Q8H PRN IV PUSH 10/13/15 08:30 Potassium Chloride 100 ml @ 50 mls/hr Q2H PRN IV 10/14/15 09:00 (KCl 20 Meq Premix Inj) 100 ml @ 50 mls/hr Q2H PRN IV 10/14/15 09:00 Potassium Chloride 40 meq 40 meq UNSCH PRN PO/TUBE 10/14/15 09:00 10/22/15 10:12 Potassium Chloride 100 ml @ 25 mls/hr UNSCH PRN IV 10/14/15 09:00 Potassium Chloride 100 ml @ 50 mls/hr Q2H PRN IV 10/14/15 09:00 (Magnesium Sulfate Inj/NS Inj) 100 ml @ 50 mls/hr UNSCH PRN IV 10/14/15 09:00 Magnesium Oxide 800 mg 800 mg UNSCH PRN PO 10/14/15 09:00 (Magnesium Sulfate Inj/NS Inj) 100 ml @ 50 mls/hr UNSCH PRN IV 10/14/15 09:00 Potassium Phosphate 2000 mg 2,000 mg Q4H PRN PO 10/14/15 09:00 10/14/15 17:49 (Sodium Phosphate Inj/NS 250 ml Inj) 250 ml @ 42 mls/hr UNSCH PRN IV 10/14/15 09:00 10/24/15 13:08 (KCl 40 Meq/30 ml Liq) 40 meq UNSCH PRN PO/TUBE 10/14/15 09:00 Potassium Phosphate 2000 mg 2,000 mg UNSCH PRN PO/TUBE 10/14/15 09:00 (Potassium Phosphate Inj/NS 250 ml Inj) 260 ml @ 42 mls/hr UNSCH PRN IV 10/14/15 09:00 10/17/15 10:18 (Proamatine) 2.5 mg BID G-TUBE 11/15/15 21:00 11/21/15 08:42 (Deltasone) 5 mg DAILY PO 11/18/15 09:00 11/21/15 08:42 (Free Water) 200 ml Q4HR G-TUBE 11/19/15 00:00 11/21/15 08:00 Date of Insertion: Oct 05, 2015 A/P Problem List: (1) Sepsis due to urinary tract infection ICD Code: A41.9 Status: Resolved (2) Acute respiratory failure ICD Code: J96.00 Status: Resolved (3) Chronic respiratory failure ICD Code: J96.10 Status: Chronic (4) Parkinson disease ICD Code: G20 Status: Chronic (5) UTI (urinary tract infection) ICD Code: N39.0 Status: Acute (6) Encephalopathy ICD Code: G93.40 Status: Resolved Assessment and Plan Parkinson's disease Cognitive disorder Chronic encephalopathy Dementia Depression Contractures On no sedation. CT head 06/18/15: diffuse atrophy unchanged. No acute intracranial findings Continue Sinemet 25/100 q8 via PEG, Seroquel 50 mg twice a day, olanzapine 5 mg a night, Klonopin 2 mg every 8 hours, Paxil 20 daily Continue Lortab when necessary pain and fentanyl patch 50 g every 3 days for pain management. Fentanyl bolus prn breakthrough pain or if needed for turning/ nursing care/etc. Acute on chronic respiratory failure Chronic trach #8 Shiley distal XLT Pneumonia, aspiration (ESBL Klebsiella and Pseudomonas pneumonia) Right pneumothorax status post pigtail catheter 2 (resolved) On T piece since 10/30 with CPAP at night. Tolerating T piece as tolerated starting 11/01 including night time. Pulmonary Dr. Restrepo following. On Prednisone 10mg daily Exchanged to 8 Distal XLT on 08/15 to facilitate suctioning, trach care. Bronchodilators ( DuoNeb) CXR 10/18, 10/26: No acute pulmonary infiltrates. - Repeat chest x-ray 11/19/15 stable. Sputum culture pending. History of orthostasis History of CAD History dyslipidemia History of hypertension Decrease Midodrine 2.5 mg BID. Monitor HR and BP keep MAP>65mmHg. Chronic moderate protein energy malnutrition Dysphagia Status post PEG Internal hemorrhoids Gastroesophageal reflux disease - TF Jevity 1.5 @ 60ml/hr, on Reglan 5mg Q8 PRN for high residuals. Held tube feeds 11/19/15 because of concern for aspiration. Resume 11/19 at a lower rate. - On Prevacid 30 mg per PEG tube daily for GERD - 10/11 KUB abdomen: PEG tube in place. Unremarkable bowel gas pattern. - check KUB, LFTs, lipase 11/20. FEN/Renal: Nonobstructing left renal calculus - Monitor renal function, I/O's. electrolytes replacement per protocol. Aspiration pneumonia Cele UTI 10/19 Sputum: Pseudomonas- likely colonized 10/19 urine cx: Yeast species 10/12 BC: NGTD 10/11 BC: NGTD 10/11 Urine cx: C. Tropicalis 10/11 Sputum: ESBL Klebsiella and Pseudomonas pneumonia 10/10 Urine: C. Tropicalis 8/16 Urine cx: Pseudomonas ? colonized 09/19 Sputum cx: Pseudomonas, Kleb pneumonia ESBL pos Candiduria (cele tropicalis urine cx 08/17) ESBL positive Klebsiella/Pseudomonas pneumonia Stenotrophomonas in sputum 08/17 MRSA colonization Sepsis UTI Klebsiella ESBL positive (has been treated) C. Diff 027 Off abx s/p ( Merrem finished 10 day course 10/23) monitor for signs of infections ( Fever, WBC) ID service is following as needed- Dr. Enoc Moss. CXR 10/26 no acute changes. d/c vanco (11/14-11/15), stools are pasty - Repeat sputum culture 11/18. Normocytic Anemia - Monitor CBC Bilateral lower extremity Contractures Stage III sacral decubitus present on admission - Wound care and PT on case Prophylaxis - GI - Prevacid - DVT - SCDs/ Lovenox. Discharge Planning Awaiting clinical improvement. Salazar Santa DO Nov 21, 2015 12:01
--- NOTE | 2015-11-21 14:41 | RADRPT ---
EXAM DATE/TIME: 11/21/2015 14:10 [place] COMPARISON: ABDOMEN KUB ONLY, October 12, 2015, 17:37. INDICATIONS : Evaluate for obstruction. MEDICAL HISTORY : None. SURGICAL HISTORY : G-tube. ENCOUNTER: Initial ACUITY: 1 day PAIN SCORE: Non-responsive. LOCATION: Abdomen. FINDINGS: Supine view of the abdomen was performed. A G-tube is seen in the left upper quadrant. The abdominal bowel gas pattern is normal. No abnormal masses, calcifications, or organomegaly is seen. Surgical p ins are seen through the left proximal femur. CONCLUSION: G-tube in place. No dilated bowel seen. Erlin Barajas MD on November 21, 2015 at 14:36 Board Certified Radiologist. This report was verified electronically.
--- NOTE | 2015-11-21 15:39 | HHI.PR ---
Subjective Remarks Remains on a T Bar at FIO2 28 %, Responds to questions Tolerates tube feeds. Less trach secretions. Objective Vital Signs Date Time Temp Pulse Resp B/P Pulse Ox O2 Delivery O2 Flow Rate FiO2 11/21/15 12:40 14 11/21/15 12:00 100 T-Piece 28 11/21/15 12:00 97.9 75 14 102/57 100 11/21/15 12:00 75 11/21/15 09:41 22 11/21/15 08:08 94 T-piece 6.00 28 11/21/15 08:00 98.0 82 22 125/76 94 11/21/15 08:00 82 11/21/15 08:00 94 T-Piece 28 11/21/15 04:00 73 11/21/15 04:00 97.6 73 17 136/83 95 11/21/15 04:00 95 T-Piece 28 11/21/15 00:00 78 11/21/15 00:00 94 T-Piece 28 11/21/15 00:00 97.9 78 17 121/75 94 11/20/15 20:23 98 T-piece 5.00 28 11/20/15 20:00 97.6 84 24 143/88 98 11/20/15 20:00 98 T-Piece 28 11/20/15 20:00 84 11/20/15 18:00 81 11/20/15 16:00 80 11/20/15 16:00 98.0 80 26 136/87 97 11/20/15 16:00 99 T-Piece 28 I/O 11/20/15 11/20/15 11/20/15 11/21/15 11/21/15 11/21/15 07:00 15:00 23:00 07:00 15:00 23:00 Intake Total 400 ml 380 ml 540 ml 550 ml 864 ml Output Total 250 ml 500 ml 240 ml 400 ml 550 ml Balance 150 ml -120 ml 300 ml 150 ml 314 ml Intake Oral 0 ml 0 ml 0 ml 0 ml IV Total 0 ml 0 ml 0 ml 0 ml Tube Feeding 0 ml 140 ml 150 ml 144 ml Other 400 ml 380 ml 400 ml 400 ml 720 ml Output Urine Total 250 ml 500 ml 240 ml 400 ml 550 ml # Bowel Movements 3 3 3 2 3 Result Diagram: 11/18/1560011/18/15600 Objective Remarks This is a thin white male who is responsive and cooperative,with a trach tube in place. HEENT: Pupils are equal and reactive to light. Mild Throat secretions CHEST:Decreased breath sounds, with wheezes and Occ crackles at bases CARDIOVASCULAR: S1 and S2 is normal.No murmur. ABDOMEN: Soft, nondistended. BS +. He has a PEG tube in place. EXTREMITIES: No edema.muscle wasting. NEURO: Alert, and has weak extremities, but moves arms. .Reflexes not elicited.Skin is dry. Assessment and Plan Assessment and Plan IMPRESSION 1. Chronic Respiratory failure. 2. Sepsis, Aspiration, resolved . 3. Shock.Resolved. 4. Tracheobronchitis 5. Parkinson's disease 6. Dementia. 7. Severe Deconditioning. Plan : 1. Cont T Bar at 28 % all the time 2. Nebs qid , duoneb. 3. Cont tube feeds after 4 hrs at 30 Cc and Keep Head end up 45 degrees 4. Cont prednisone 5 mg daily. 5. Levsin .25 mg tid prn for Secretions 6. Cont Trach toilet and lavage. 8. PT to help in activity 9. PM valve to talk 10. Labs Monday Darren Kiser MD Nov 21, 2015 15:38
[2015-11-21 15:52] LABS: ALKALINE PHOSPHATASE 77 U/L (45-117); TOTAL BILIRUBIN ADULT 0.5 MG/DL (0.2-1.0)
[2015-11-21 16:15] LABS: ALT (GPT) 11 U/L (12-78); ANION GAP 6 MEQ/L (5-15); AST (GOT) 24 U/L (15-37); BICARBONATE 30.2 MEQ/L (21.0-32.0); BLOOD UREA NITROGEN 10 MG/DL (7-18); CHLORIDE 100 MEQ/L (98-107); GLOMERULAR FILTRATION RATE 159 ML/MIN (>89); SODIUM (NA) 136 MEQ/L (136-145)
[2015-11-21 16:16] LABS: POTASSIUM 4.5 MEQ/L (3.5-5.1)
[2015-11-21] MEDS: ENOXAPARIN SODIUM 40 MG/0.4 ML SYRINGE SQ SCH (20:46)
[2015-11-21] MEDS: OLANZapine 5 MG TAB GT SCH (20:46)
[2015-11-22] VITALS (8 sets, daily range): BP systolic 121–135; BP diastolic 73–83; PULSE 69–84; RESP 15–22; TEMP 97–98; O2SAT 95–100
[2015-11-22] MEDS: ACETAMINOPHEN/HYDROcodone 325 MG/5 MG TAB PO PRN ×4 (00:17→23:21)
[2015-11-22] MEDS: FREE WATER G-TUBE SCH ×7 (04:00→23:21)
[2015-11-22] MEDS: clonazePAM 1 MG TAB PO SCH ×3 (05:21→20:53)
[2015-11-22] MEDS: CARBIDOPA/LEVODOPA 25 MG/100 MG TAB GT SCH ×3 (05:21→20:53)
[2015-11-22] MEDS: INSULIN NovoLIN REGULAR SUPPLEMENTAL SCALE SQ SCH ×5 (05:22→23:21)
[2015-11-22] MEDS: SODIUM CHLORIDE 0.9% FLUSH 5 ML FLUSH IVF SCH ×2 (07:43→20:54)
[2015-11-22] MEDS: CHLORHEXIDINE 0.12% (ORAL KIT) 15 ML CUP MT SCH ×2 (07:43→20:54)
[2015-11-22] MEDS: QUEtiapine FUMARATE 25 MG TAB G-TUBE SCH ×2 (07:43→20:53)
[2015-11-22] MEDS: MIDODRINE 5 MG TAB G-TUBE SCH ×2 (07:44→20:53)
[2015-11-22] MEDS: GABAPENTIN 300 MG CAP G-TUBE SCH ×2 (07:44→20:53)
[2015-11-22] MEDS: LACTOBACILLUS ACIDOPHILUS TAB PO SCH ×3 (07:44→18:25)
[2015-11-22] MEDS: PARoxetine HCL 20 MG TAB G-TUBE SCH (07:45)
[2015-11-22] MEDS: predniSONE 5 MG TAB PO SCH (07:45)
[2015-11-22] MEDS: LANSOPRAZOLE SOLUTAB 30 MG TAB NG SCH (07:45)
[2015-11-22] MEDS: ARTIFICIAL TEARS OPTH SOLN 15 ML BTL EACH EYE SCH ×3 (07:46→18:26)
[2015-11-22] MEDS: COLLAGENASE OINT 30 GM TUBE TOP SCH (07:46)
[2015-11-22] MEDS: MORPHINE SULFATE 4 MG/ML INJ IV PUSH PRN ×2 (13:08→20:53)
--- NOTE | 2015-11-22 14:11 | HHI.PR ---
Subjective Remarks The patient appeared comfortable. No acute events were reported. Seemed to be tolerating tube feeds. Objective Vitals Vital Signs Date Time Temp Pulse Resp B/P Pulse Ox O2 Delivery O2 Flow Rate FiO2 11/22/15 08:44 20 11/22/15 08:11 95 T-piece 6.00 28 11/22/15 08:00 100 T-Piece 28 11/22/15 08:00 97.0 81 19 135/80 100 11/22/15 08:00 81 11/22/15 04:00 69 11/22/15 04:00 97 T-Piece 28 11/22/15 04:00 98.0 69 15 121/73 99 11/22/15 00:00 84 11/22/15 00:00 97 T-Piece 11/22/15 00:00 97.9 84 22 129/80 97 11/21/15 20:18 98 T-piece 4.00 28 11/21/15 20:00 71 11/21/15 20:00 99 T-Piece 28 11/21/15 20:00 98.6 76 25 134/84 99 11/21/15 16:00 71 11/21/15 16:00 97.6 71 15 120/76 99 11/21/15 16:00 99 T-Piece 28 I/O 11/21/15 11/21/15 11/21/15 11/22/15 11/22/15 11/22/15 07:00 15:00 23:00 07:00 15:00 23:00 Intake Total 550 ml 864 ml 200 ml 550 ml Output Total 400 ml 550 ml 450 ml 450 ml Balance 150 ml 314 ml -250 ml 100 ml Intake Oral 0 ml 0 ml IV Total 0 ml 0 ml Tube Feeding 150 ml 144 ml 100 ml 300 ml Other 400 ml 720 ml 100 ml 250 ml Output Urine Total 400 ml 550 ml 450 ml 450 ml # Bowel Movements 2 3 1 1 Result Diagram: 11/18/15 0601 11/21/15 1439 Imaging Last Impressions Abdomen X-Ray 11/21/15 0000 Signed Impressions: Service Date/Time: Saturday, November 21, 2015 14:10 - CONCLUSION: G-tube in place. No dilated bowel seen. Erlin Barajas MD Chest X-Ray 11/19/15 0000 Signed Impressions: Service Date/Time: November 20:45 - CONCLUSION: No acute disease. Erlin Mack MD Upper Extremity Ultrasound 10/13/15 0000 Signed Impressions: Service Date/Time: Tuesday, October 13, 2015 09:51 - CONCLUSION: 1. No evidence of deep venous thrombosis. John Anderson MD Renal Ultrasound 10/07/15 0000 Signed Impressions: Service Date/Time: Wednesday, October 07, 2015 18:29 - CONCLUSION: 1. No acute findings. 3.6 cm left renal cyst. Putnam catheter in bladder. Amaury Ellsworth MD Tunnelled Chest Tube Removal 08/05/15 1100 Signed Impressions: Service Date/Time: Wednesday, August 05, 2015 11:00 - CONCLUSION: Uncomplicated chest tube removal. Blaine Jackson MD Chest Tube Change 07/31/15 0000 Signed Impressions: Service Date/Time: Friday, July 31, 2015 14:34 - CONCLUSION: Uncomplicated reposition of previously placed chest tube as above. Blaine Jackson MD Chest Tube Insertion 07/30/15 0000 Signed Impressions: Service Date/Time: July 14:50 - CONCLUSION: Uncomplicated chest tube placement as above. Blaine Jackson MD Catheter Change 07/27/15 0000 Signed Impressions: Service Date/Time: Monday, July 27, 2015 14:43 - CONCLUSION: Uncomplicated gastrostomy tube exchange as above. Blaine Jackson MD Chest CT 07/11/15 Signed Impressions: Service Date/Time: Saturday, July 11, 2015 09:49 - CONCLUSION: Scattered patchy densities significantly improved from previous study. Tiny anterior right basilar pneumothorax. Right-sided chest tube in good position. Néstor Matamoros MD Head CT 06/18/151902 Signed Impressions: Service Date/Time: June 19:31 - CONCLUSION: Diffuse atrophy unchanged. No acute intracranial findings. Kush Briscoe MD Abdomen/Pelvis CT 06/18/151902 Signed Impressions: Service Date/Time: June 19:36 - CONCLUSION: 1. Chronic nonspecific urinary bladder wall thickening. Bladder collapsed with Putnam catheter in place. 2. Chronic bilateral mid to lower lung zone groundglass opacity. 3. Nonobstructing left renal calculus. 4. Distended rectum. Kush Briscoe MD Objective Remarks GENERAL: Well-nourished, well-developed patient. SKIN: Warm and dry. HEAD: Normocephalic. EYES: No scleral icterus. No injection or drainage. NECK: Trach in place. CARDIOVASCULAR: Regular rate and rhythm without murmurs, gallops, or rubs. RESPIRATORY: Decreased secretions. Moderate air entry. Scattered rhonchi. GASTROINTESTINAL: Abdomen soft, non-tender, nondistended. MUSCULOSKELETAL: No edema. Contractures and deformities of fingers. Stage III coccyx/sacral decubitus ulcer. NEURO: Unresponsive to voice, not following commands. Procedures 07/26- PEG replacement 07/29- right pigtail catheter placement for new pneumothorax Medications and IVs Current Medications Medications (Trade) Dose Ordered Sig/Jassi Route Start Time Stop Time Status Last Admin (NS Flush) 2 ml UNSCH PRN IVF 06/18/15 21:30 11/17/15 04:16 (NS Flush) 2 ml BID IVF 06/19/15 09:00 11/22/15 07:43 (Tylenol 650 Mg/ 20 ml Liq) 650 mg Q6H PRN TUBE 06/18/15 21:30 09/30/15 09:01 (Tears Naturale Opth Soln) 1 drop TID EACH EYE 06/19/15 09:00 11/22/15 12:33 (Zofran Inj) 4 mg Q6H PRN IV 06/18/15 21:30 11/04/15 13:59 (Sinemet 25-100 Mg) 1 tab Q8HR GT 06/19/15 06:00 11/22/15 12:32 (Neurontin) 300 mg BID G-TUBE 06/19/15 09:00 11/22/15 07:44 (Lactinex) 1 tab TID PO 06/19/15 09:00 11/22/15 12:33 (Paxil) 20 mg DAILY G-TUBE 06/19/15 09:00 11/22/15 07:45 (Pill Splitter) 1 ea UNSCH PRN OTHER 06/19/15 03:30 06/28/15 09:35 (Prevacid Odt) 30 mg DAILY NG 07/08/15 09:00 11/22/15 07:45 (KlonoPIN) 2 mg Q8HR PO 07/09/15 14:00 11/22/15 12:33 (SEROquel) 50 mg BID G-TUBE 07/18/15 09:00 11/22/15 07:43 (Morphine Inj) 2 mg Q3H PRN IV PUSH 07/28/15 00:45 11/22/15 13:08 (Peridex 0.12% Liq) 15 ml BID@08,20 MT 07/29/15 20:00 11/22/15 07:43 (Ativan Inj) 0.5 mg Q6H PRN IVP 08/04/15 13:00 11/17/15 04:16 (Lovenox Inj) 40 mg Q24H SQ 08/09/15 22:00 11/21/15 20:46 ([place] 5-325 Mg) 1 tab Q6H PRN PO 08/15/15 15:45 11/22/15 07:44 (Sublimaze Inj) 50 mcg Q2H PRN IV PUSH 08/15/15 15:45 11/19/15 17:36 (ZyPREXA) 5 mg HS GT 08/15/15 21:00 11/21/15 20:46 (Santyl Oint) 1 applic DAILY TOP 08/21/15 09:00 11/22/15 07:46 (Levsin Liq) 0.125 mg Q4H PRN PO 09/06/15 11:00 11/11/15 20:28 (D50w (Vial) Inj) 25 ml UNSCH PRN IV PUSH 10/12/15 17:30 (Glucagon Inj) 1 mg UNSCH PRN OTHER 10/12/15 17:30 (NovoLIN R SUPPLEMENTAL SCALE) 1 Q6H SQ 10/12/15 18:00 11/22/15 12:32 Metoclopramide HCl 5 mg 5 mg Q8H PRN IV PUSH 10/13/15 08:30 Potassium Chloride 100 ml @ 50 mls/hr Q2H PRN IV 10/14/15 09:00 (KCl 20 Meq Premix Inj) 100 ml @ 50 mls/hr Q2H PRN IV 10/14/15 09:00 Potassium Chloride 40 meq 40 meq UNSCH PRN PO/TUBE 10/14/15 09:00 10/22/15 10:12 Potassium Chloride 100 ml @ 25 mls/hr UNSCH PRN IV 10/14/15 09:00 Potassium Chloride 100 ml @ 50 mls/hr Q2H PRN IV 10/14/15 09:00 (Magnesium Sulfate Inj/NS Inj) 100 ml @ 50 mls/hr UNSCH PRN IV 10/14/15 09:00 Magnesium Oxide 800 mg 800 mg UNSCH PRN PO 10/14/15 09:00 (Magnesium Sulfate Inj/NS Inj) 100 ml @ 50 mls/hr UNSCH PRN IV 10/14/15 09:00 Potassium Phosphate 2000 mg 2,000 mg Q4H PRN PO 10/14/15 09:00 10/14/15 17:49 (Sodium Phosphate Inj/NS 250 ml Inj) 250 ml @ 42 mls/hr UNSCH PRN IV 10/14/15 09:00 10/24/15 13:08 (KCl 40 Meq/30 ml Liq) 40 meq UNSCH PRN PO/TUBE 10/14/15 09:00 Potassium Phosphate 2000 mg 2,000 mg UNSCH PRN PO/TUBE 10/14/15 09:00 (Potassium Phosphate Inj/NS 250 ml Inj) 260 ml @ 42 mls/hr UNSCH PRN IV 10/14/15 09:00 10/17/15 10:18 (Proamatine) 2.5 mg BID G-TUBE 11/15/15 21:00 11/22/15 07:44 (Deltasone) 5 mg DAILY PO 11/18/15 09:00 11/22/15 07:45 (Free Water) 200 ml Q4HR G-TUBE 11/19/15 00:00 11/22/15 12:00 Date of Insertion: Oct 05, 2015 A/P Problem List: (1) Sepsis due to urinary tract infection ICD Code: A41.9 Status: Resolved (2) Acute respiratory failure ICD Code: J96.00 Status: Resolved (3) Chronic respiratory failure ICD Code: J96.10 Status: Chronic (4) Parkinson disease ICD Code: G20 Status: Chronic (5) UTI (urinary tract infection) ICD Code: N39.0 Status: Acute (6) Encephalopathy ICD Code: G93.40 Status: Resolved Assessment and Plan Parkinson's disease Cognitive disorder Chronic encephalopathy Dementia Depression Contractures On no sedation. CT head 06/18/15: diffuse atrophy unchanged. No acute intracranial findings Continue Sinemet 25/100 q8 via PEG, Seroquel 50 mg twice a day, olanzapine 5 mg a night, Klonopin 2 mg every 8 hours, Paxil 20 daily Continue Lortab when necessary pain and fentanyl patch 50 g every 3 days for pain management. Fentanyl bolus prn breakthrough pain or if needed for turning/ nursing care/etc. Acute on chronic respiratory failure Chronic trach #8 Shiley distal XLT Pneumonia, aspiration (ESBL Klebsiella and Pseudomonas pneumonia) Right pneumothorax status post pigtail catheter 2 (resolved) On T piece since 10/30 with CPAP at night. Tolerating T piece as tolerated starting 11/01 including [address] time. Pulmonary Dr. Restrepo following. On Prednisone 10mg daily Exchanged to 8 Distal XLT on 08/15 to facilitate suctioning, trach care. Bronchodilators ( DuoNeb) CXR 10/18, 10/26: No acute pulmonary infiltrates. - Repeat chest x-ray 11/19/15 stable. Sputum culture pending. History of orthostasis History of CAD History dyslipidemia History of hypertension Decrease Midodrine 2.5 mg BID. Monitor HR and BP keep MAP>65mmHg. Chronic moderate protein energy malnutrition Dysphagia Status post PEG Internal hemorrhoids Gastroesophageal reflux disease - TF Jevity 1.5 @ 60ml/hr, on Reglan 5mg Q8 PRN for high residuals. Held tube feeds 11/19/15 because of concern for aspiration. Resume 11/19 at a lower rate. - On Prevacid 30 mg per PEG tube daily for GERD - 10/11 KUB abdomen: PEG tube in place. Unremarkable bowel gas pattern. - check KUB, LFTs, lipase 11/20. FEN/Renal: Nonobstructing left renal calculus - Monitor renal function, I/O's. electrolytes replacement per protocol. Aspiration pneumonia Cele UTI 10/19 Sputum: Pseudomonas- likely colonized 10/19 urine cx: Yeast species 10/12 BC: NGTD 10/11 BC: NGTD 10/11 Urine cx: C. Tropicalis 10/11 Sputum: ESBL Klebsiella and Pseudomonas pneumonia 10/10 Urine: C. Tropicalis 09/21 Urine cx: Pseudomonas ? colonized 09/19 Sputum cx: Pseudomonas, Kleb pneumonia ESBL pos Candiduria (cele tropicalis urine cx 08/17) ESBL positive Klebsiella/Pseudomonas pneumonia Stenotrophomonas in sputum 08/17 MRSA colonization Sepsis UTI Klebsiella ESBL positive (has been treated) C. Diff 027 Off abx s/p ( Merrem finished 10 day course 10/23) monitor for signs of infections ( Fever, WBC) ID service is following as needed- Dr. Enoc Moss. CXR 10/26 no acute changes. d/c vanco (11/14-11/15), stools are pasty - Repeat sputum culture 11/18. Normocytic Anemia - Monitor CBC Bilateral lower extremity Contractures Stage III sacral decubitus present on admission - Wound care and PT on case Prophylaxis - GI - Prevacid - DVT - SCDs/ Lovenox. Discharge Planning Awaiting clinical improvement. Salazar Santa DO Nov 22, 2015 14:11
--- NOTE | 2015-11-22 16:17 | HHI.PR ---
Subjective Remarks Remains on a T Bar at FIO2 28 %. Responds to questions Tolerates tube feeds. No fever. Objective Vital Signs Date Time Temp Pulse Resp B/P Pulse Ox O2 Delivery O2 Flow Rate FiO2 11/22/15 13:13 16 11/22/15 12:00 100 T-Piece 28 11/22/15 12:00 75 11/22/15 12:00 97.8 75 16 127/77 100 11/22/15 08:44 20 11/22/15 08:11 95 T-piece 6.00 28 11/22/15 08:00 100 T-Piece 28 11/22/15 08:00 97.0 81 19 135/80 100 11/22/15 08:00 81 11/22/15 04:00 69 11/22/15 04:00 97 T-Piece 28 11/22/15 04:00 98.0 69 15 121/73 99 11/22/15 00:00 84 11/22/15 00:00 97 T-Piece 28 11/22/15 00:00 97.9 84 22 129/80 97 11/21/15 20:18 98 T-piece 4.00 28 11/21/15 20:00 71 11/21/15 20:00 99 T-Piece 28 11/21/15 20:00 98.6 76 25 134/84 99 I/O 11/21/15 11/21/15 11/21/15 11/22/15 11/22/15 11/22/15 07:00 15:00 23:00 07:00 15:00 23:00 Intake Total 550 ml 864 ml 200 ml 550 ml 660 ml Output Total 400 ml 550 ml 450 ml 450 ml 650 ml Balance 150 ml 314 ml -250 ml 100 ml 10 ml Intake Oral 0 ml 0 ml 0 ml IV Total 0 ml 0 ml 0 ml Tube Feeding 150 ml 144 ml 100 ml 300 ml 240 ml Other 400 ml 720 ml 100 ml 250 ml 420 ml Output Urine Total 400 ml 550 ml 450 ml 450 ml 650 ml # Bowel Movements 2 3 1 1 1 Result Diagram: 11/18/15 0601 11/21/15 1439 Objective Remarks This is a thin white male who is responsive and cooperative,with a trach tube in place. HEENT: Pupils are equal and reactive to light. Mild Throat secretions CHEST:Decreased breath sounds, with wheezes scattered. CARDIOVASCULAR: S1 and S2 is normal.No murmur. ABDOMEN: Soft, nondistended. BS +. He has a PEG tube in place. EXTREMITIES: No edema.muscle wasting. NEURO: Alert, and has weak extremities, but moves arms. .Reflexes not elicited.Skin is cool. Assessment and Plan Assessment and Plan IMPRESSION 1. Chronic Respiratory failure. 2. Sepsis, Aspiration, resolved . 3. Shock.Resolved. 4. Tracheobronchitis 5. Parkinson's disease 6. Dementia. 7. Severe Deconditioning. Plan : 1. Cont T Bar at 28 % all the time 2. Nebs qid , duoneb. 3. Cont tube feeds after 4 hrs at 30 Cc and Keep Head end up 45 degrees 4. Cont prednisone 5 mg daily. 5. Levsin .25 mg tid prn for Secretions 6. Cont Trach toilet and lavage. 8. PT to help in activity 9. PM valve to talk 10. Labs Monday Darren Kiser MD Nov 22, 2015 16:17
[2015-11-22] MEDS: OLANZapine 5 MG TAB GT SCH (20:53)
[2015-11-22] MEDS: ENOXAPARIN SODIUM 40 MG/0.4 ML SYRINGE SQ SCH (20:54)
[2015-11-23] VITALS (9 sets, daily range): BP systolic 108–132; BP diastolic 58–79; PULSE 63–102; RESP 13–26; TEMP 97.8–99.2; O2SAT 95–100
[2015-11-23] MEDS: FREE WATER G-TUBE SCH ×5 (04:00→20:00)
[2015-11-23] MEDS: CARBIDOPA/LEVODOPA 25 MG/100 MG TAB GT SCH ×3 (04:51→20:59)
[2015-11-23] MEDS: clonazePAM 1 MG TAB PO SCH ×3 (04:51→20:59)
[2015-11-23] MEDS: MORPHINE SULFATE 4 MG/ML INJ IV PUSH PRN (04:51)
[2015-11-23] MEDS: INSULIN NovoLIN REGULAR SUPPLEMENTAL SCALE SQ SCH ×3 (05:10→18:05)
[2015-11-23] MEDS: CHLORHEXIDINE 0.12% (ORAL KIT) 15 ML CUP MT SCH ×2 (10:21→20:00)
[2015-11-23] MEDS: LANSOPRAZOLE SOLUTAB 30 MG TAB NG SCH (10:22)
[2015-11-23] MEDS: MIDODRINE 5 MG TAB G-TUBE SCH ×2 (10:22→20:58)
[2015-11-23] MEDS: predniSONE 5 MG TAB PO SCH (10:22)
[2015-11-23] MEDS: QUEtiapine FUMARATE 25 MG TAB G-TUBE SCH ×2 (10:22→20:58)
[2015-11-23] MEDS: GABAPENTIN 300 MG CAP G-TUBE SCH ×2 (10:22→20:58)
[2015-11-23] MEDS: LACTOBACILLUS ACIDOPHILUS TAB PO SCH ×3 (10:22→18:06)
[2015-11-23] MEDS: SODIUM CHLORIDE 0.9% FLUSH 5 ML FLUSH IVF SCH ×2 (10:22→20:59)
[2015-11-23] MEDS: PARoxetine HCL 20 MG TAB G-TUBE SCH (10:22)
[2015-11-23] MEDS: COLLAGENASE OINT 30 GM TUBE TOP SCH (10:23)
[2015-11-23] MEDS: ARTIFICIAL TEARS OPTH SOLN 15 ML BTL EACH EYE SCH ×3 (10:23→18:06)
--- NOTE | 2015-11-23 14:39 | HHI.PR ---
Subjective Remarks The pt was resting comfortably. No concerns from nursing. Objective Vitals Vital Signs Date Time Temp Pulse Resp B/P Pulse Ox O2 Delivery O2 Flow Rate FiO2 11/23/15 12:00 97.8 82 23 128/79 98 11/23/15 12:00 99 T-Piece 28 11/23/15 12:00 82 11/23/15 08:18 97 T-piece 28 11/23/15 08:00 81 11/23/15 08:00 99 T-Piece 28 11/23/15 08:00 97.8 81 24 125/79 99 11/23/15 04:00 98.2 63 13 108/58 100 11/23/15 04:00 79 11/23/15 04:00 95 T-Piece 28 11/23/15 00:00 95 T-Piece 28 11/23/15 00:00 98.2 79 13 108/58 95 11/23/15 00:00 79 11/22/15 20:00 100 T-Piece 28 11/22/15 20:00 97.6 75 18 128/75 100 11/22/15 20:00 75 11/22/15 19:49 100 T-piece 28 11/22/15 16:00 97.6 69 16 135/83 100 11/22/15 16:00 69 11/22/15 16:00 100 T-Piece 28 I/O 11/22/15 11/22/15 11/22/15 11/23/15 11/23/15 11/23/15 07:00 15:00 23:00 07:00 15:00 23:00 Intake Total 550 ml 660 ml 290 ml 490 ml Output Total 450 ml 650 ml 150 ml 350 ml Balance 100 ml 10 ml 140 ml 140 ml Intake Oral 0 ml IV Total 0 ml Tube Feeding 300 ml 240 ml 140 ml 240 ml Other 250 ml 420 ml 150 ml 250 ml Output Urine Total 450 ml 650 ml 150 ml 350 ml # Bowel Movements 1 1 Result Diagram: 11/21/15 1439 Imaging Last Impressions Abdomen X-Ray 11/21/15 0000 Signed Impressions: Service Date/Time: Saturday, November 21, 2015 14:10 - CONCLUSION: G-tube in place. No dilated bowel seen. Erlin Barajas MD Chest X-Ray 11/19/15 0000 Signed Impressions: Service Date/Time: November 20:45 - CONCLUSION: No acute disease. Erlin Mack MD Upper Extremity Ultrasound 10/13/15 0000 Signed Impressions: Service Date/Time: Tuesday, October 13, 2015 09:51 - CONCLUSION: 1. No evidence of deep venous thrombosis. John Anderson MD Renal Ultrasound 10/07/15 0000 Signed Impressions: Service Date/Time: Wednesday, October 07, 2015 18:29 - CONCLUSION: 1. No acute findings. 3.6 cm left renal cyst. Putnam catheter in bladder. Amaury Ellsworth MD Tunnelled Chest Tube Removal 08/05/15 1100 Signed Impressions: Service Date/Time: Wednesday, August 05, 2015 11:00 - CONCLUSION: Uncomplicated chest tube removal. Blaine Jackson MD Chest Tube Change 07/31/15 0000 Signed Impressions: Service Date/Time: Friday, July 31, 2015 14:34 - CONCLUSION: Uncomplicated reposition of previously placed chest tube as above. Blaine Jackson MD Chest Tube Insertion 07/30/15 0000 Signed Impressions: Service Date/Time: July 14:50 - CONCLUSION: Uncomplicated chest tube placement as above. Blaine Jackson MD Catheter Change 07/27/15 0000 Signed Impressions: Service Date/Time: Monday, July 27, 2015 14:43 - CONCLUSION: Uncomplicated gastrostomy tube exchange as above. Blaine Jackson MD Chest CT 07/11/15 0000 Signed Impressions: Service Date/Time: Saturday, July 11, 2015 09:49 - CONCLUSION: Scattered patchy densities significantly improved from previous study. Tiny anterior right basilar pneumothorax. Right-sided chest tube in good position. Néstor Matamoros MD Head CT 06/18/151902 Signed Impressions: Service Date/Time: June 19:31 - CONCLUSION: Diffuse atrophy unchanged. No acute intracranial findings. Kush Briscoe MD Abdomen/Pelvis CT 06/18/151902 Signed Impressions: Service Date/Time: June 19:36 - CONCLUSION: 1. Chronic nonspecific urinary bladder wall thickening. Bladder collapsed with Putnam catheter in place. 2. Chronic bilateral mid to lower lung zone groundglass opacity. 3. Nonobstructing left renal calculus. 4. Distended rectum. Kush Briscoe MD Objective Remarks GENERAL: Well-nourished, well-developed patient. SKIN: Warm and dry. HEAD: Normocephalic. EYES: No scleral icterus. No injection or drainage. NECK: Trach in place. CARDIOVASCULAR: Regular rate and rhythm without murmurs, gallops, or rubs. RESPIRATORY: Decreased secretions. Moderate air entry. Scattered rhonchi. GASTROINTESTINAL: Abdomen soft, non-tender, nondistended. MUSCULOSKELETAL: No edema. Contractures and deformities of fingers. Stage III coccyx/sacral decubitus ulcer. NEURO: Unresponsive to voice, not following commands. Procedures 07/26- PEG replacement 07/29- right pigtail catheter placement for new pneumothorax Medications and IVs Current Medications Medications (Trade) Dose Ordered Sig/Jassi Route Start Time Stop Time Status Last Admin (NS Flush) 2 ml UNSCH PRN IVF 06/18/15 21:30 11/17/15 04:16 (NS Flush) 2 ml BID IVF 06/19/15 09:00 11/23/15 10:22 (Tylenol 650 Mg/ 20 ml Liq) 650 mg Q6H PRN TUBE 06/18/15 21:30 09/30/15 09:01 (Tears Naturale Opth Soln) 1 drop TID EACH EYE 06/19/15 09:00 11/23/15 14:00 (Zofran Inj) 4 mg Q6H PRN IV 06/18/15 21:30 11/04/15 13:59 (Sinemet 25-100 Mg) 1 tab Q8HR GT 06/19/15 06:00 11/23/15 14:00 (Neurontin) 300 mg BID G-TUBE 06/19/15 09:00 11/23/15 10:22 (Lactinex) 1 tab TID PO 06/19/15 09:00 11/23/15 14:00 (Paxil) 20 mg DAILY G-TUBE 06/19/15 09:00 11/23/15 10:22 (Pill Splitter) 1 ea UNSCH PRN OTHER 06/19/15 03:30 06/28/15 09:35 (Prevacid Odt) 30 mg DAILY NG 07/08/15 09:00 11/23/15 10:22 (KlonoPIN) 2 mg Q8HR PO 07/09/15 14:00 11/23/15 14:00 (SEROquel) 50 mg BID G-TUBE 07/18/15 09:00 11/23/15 10:22 (Morphine Inj) 2 mg Q3H PRN IV PUSH 07/28/15 00:45 11/23/15 04:51 (Peridex 0.12% Liq) 15 ml BID@08,20 MT 07/29/15 20:00 11/23/15 10:21 (Ativan Inj) 0.5 mg Q6H PRN IVP 08/04/15 13:00 11/17/15 04:16 (Lovenox Inj) 40 mg Q24H SQ 08/09/15 22:00 11/22/15 20:54 (Cobb 5-325 Mg) 1 tab Q6H PRN PO 08/15/15 15:45 11/22/15 23:21 (Sublimaze Inj) 50 mcg Q2H PRN IV PUSH 08/15/15 15:45 11/19/15 17:36 (ZyPREXA) 5 mg HS GT 08/15/15 21:00 11/22/15 20:53 (Santyl Oint) 1 applic DAILY TOP 08/21/15 09:00 11/23/15 10:23 (Levsin Liq) 0.125 mg Q4H PRN PO 09/06/15 11:00 11/11/15 20:28 (D50w (Vial) Inj) 25 ml UNSCH PRN IV PUSH 10/12/15 17:30 (Glucagon Inj) 1 mg UNSCH PRN OTHER 10/12/15 17:30 (NovoLIN R SUPPLEMENTAL SCALE) 1 Q6H SQ 10/12/15 18:00 11/22/15 12:32 Metoclopramide HCl 5 mg 5 mg Q8H PRN IV PUSH 10/13/15 08:30 Potassium Chloride 100 ml @ 50 mls/hr Q2H PRN IV 10/14/15 09:00 (KCl 20 Meq Premix Inj) 100 ml @ 50 mls/hr Q2H PRN IV 10/14/15 09:00 Potassium Chloride 40 meq 40 meq UNSCH PRN PO/TUBE 10/14/15 09:00 10/22/15 10:12 Potassium Chloride 100 ml @ 25 mls/hr UNSCH PRN IV 10/14/15 09:00 Potassium Chloride 100 ml @ 50 mls/hr Q2H PRN IV 10/14/15 09:00 (Magnesium Sulfate Inj/NS Inj) 100 ml @ 50 mls/hr UNSCH PRN IV 10/14/15 09:00 Magnesium Oxide 800 mg 800 mg UNSCH PRN PO 10/14/15 09:00 (Magnesium Sulfate Inj/NS Inj) 100 ml @ 50 mls/hr UNSCH PRN IV 10/14/15 09:00 Potassium Phosphate 2000 mg 2,000 mg Q4H PRN PO 10/14/15 09:00 10/14/15 17:49 (Sodium Phosphate Inj/NS 250 ml Inj) 250 ml @ 42 mls/hr UNSCH PRN IV 10/14/15 09:00 10/24/15 13:08 (KCl 40 Meq/30 ml Liq) 40 meq UNSCH PRN PO/TUBE 10/14/15 09:00 Potassium Phosphate 2000 mg 2,000 mg UNSCH PRN PO/TUBE 10/14/15 09:00 (Potassium Phosphate Inj/NS 250 ml Inj) 260 ml @ 42 mls/hr UNSCH PRN IV 10/14/15 09:00 10/17/15 10:18 (Proamatine) 2.5 mg BID G-TUBE 11/15/15 21:00 11/23/15 10:22 (Deltasone) 5 mg DAILY PO 11/18/15 09:00 11/23/15 10:22 (Free Water) 200 ml Q4HR G-TUBE 11/19/15 00:00 11/23/15 12:00 Date of Insertion: Oct 05, 2015 A/P Problem List: (1) Sepsis due to urinary tract infection ICD Code: A41.9 Status: Resolved (2) Acute respiratory failure ICD Code: J96.00 Status: Resolved (3) Chronic respiratory failure ICD Code: J96.10 Status: Chronic (4) Parkinson disease ICD Code: G20 Status: Chronic (5) UTI (urinary tract infection) ICD Code: N39.0 Status: Acute (6) Encephalopathy ICD Code: G93.40 Status: Resolved Assessment and Plan Parkinson's disease Cognitive disorder Chronic encephalopathy Dementia Depression Contractures On no sedation. CT head 06/18/15: diffuse atrophy unchanged. No acute intracranial findings Continue Sinemet 25/100 q8 via PEG, Seroquel 50 mg twice a day, olanzapine 5 mg a night, Klonopin 2 mg every 8 hours, Paxil 20 daily Continue Lortab when necessary pain and fentanyl patch 50 g every 3 days for pain management. Fentanyl bolus prn breakthrough pain or if needed for turning/ nursing care/etc. Acute on chronic respiratory failure Chronic trach #8 Shiley distal XLT Pneumonia, aspiration (ESBL Klebsiella and Pseudomonas pneumonia) Right pneumothorax status post pigtail catheter 2 (resolved) On T piece since 10/30 with CPAP at night. Tolerating T piece as tolerated starting 11/01 including [address] time. Pulmonary Dr. Restrepo following. On Prednisone 10mg daily Exchanged to 8 Distal XLT on 08/15 to facilitate suctioning, trach care. Bronchodilators ( DuoNeb) CXR 10/18, 10/26: No acute pulmonary infiltrates. - Repeat chest x-ray 11/19/15 stable. Sputum culture pending. History of orthostasis History of CAD History dyslipidemia History of hypertension Decrease Midodrine 2.5 mg BID. Monitor HR and BP keep MAP>65mmHg. Chronic moderate protein energy malnutrition Dysphagia Status post PEG Internal hemorrhoids Gastroesophageal reflux disease - TF Jevity 1.5 @ 60ml/hr, on Reglan 5mg Q8 PRN for high residuals. Held tube feeds 11/19/15 because of concern for aspiration. Resumed, now at 40 ml/hr . - On Prevacid 30 mg per PEG tube daily for GERD - 11/21 KUB abdomen: PEG tube in place. Unremarkable bowel gas pattern. FEN/Renal: Nonobstructing left renal calculus - Monitor renal function, I/O's. electrolytes replacement per protocol. Aspiration pneumonia Cele UTI 10/19 Sputum: Pseudomonas- likely colonized 10/19 urine cx: Yeast species 10/12 BC: NGTD 10/11 BC: NGTD 10/11 Urine cx: C. Tropicalis 10/11 Sputum: ESBL Klebsiella and Pseudomonas pneumonia 10/10 Urine: C. Tropicalis 09/21 Urine cx: Pseudomonas ? colonized 09/19 Sputum cx: Pseudomonas, Kleb pneumonia ESBL pos Candiduria (cele tropicalis urine cx 08/17) ESBL positive Klebsiella/Pseudomonas pneumonia Stenotrophomonas in sputum 08/17 MRSA colonization Sepsis UTI Klebsiella ESBL positive (has been treated) C. Diff 027 Off abx s/p ( Merrem finished 10 day course 10/23) monitor for signs of infections ( Fever, WBC) ID service is following as needed- Dr. Enoc Moss. CXR 10/26 no acute changes. d/c vanco (11/14-11/15), stools are pasty - Repeat sputum culture 11/18. Normocytic Anemia - Monitor CBC Bilateral lower extremity Contractures Stage III sacral decubitus present on admission - Wound care and PT on case Prophylaxis - GI - Prevacid - DVT - SCDs/ Lovenox. Discharge Planning Awaiting clinical improvement. Salazar Santa DO Nov 23, 2015 14:39
--- NOTE | 2015-11-23 18:41 | HHI.PR ---
Subjective Remarks Remains on a T Bar at FIO2 28 %. Responds to questions. No wheezing Tolerates tube feeds. No fever. Objective Vital Signs Date Time Temp Pulse Resp B/P Pulse Ox O2 Delivery O2 Flow Rate FiO2 11/23/15 16:00 91 11/23/15 16:00 99 T-Piece 28 11/23/15 16:00 98.0 91 24 132/62 99 11/23/15 12:00 97.8 82 23 128/79 98 11/23/15 12:00 99 T-Piece 28 11/23/15 12:00 82 11/23/15 08:18 97 T-piece 28 11/23/15 08:00 81 11/23/15 08:00 99 T-Piece 28 11/23/15 08:00 97.8 81 24 125/79 99 11/23/15 04:00 98.2 63 13 108/58 100 11/23/15 04:00 79 11/23/15 04:00 95 T-Piece 28 11/23/15 00:00 95 T-Piece 28 11/23/15 00:00 98.2 79 13 108/58 95 11/23/15 00:00 79 11/22/15 20:00 100 T-Piece 28 11/22/15 20:00 97.6 75 18 128/75 100 11/22/15 20:00 75 11/22/15 19:49 100 T-piece 28 I/O 11/22/15 11/22/15 11/22/15 11/23/15 11/23/15 11/23/15 07:00 15:00 23:00 07:00 15:00 23:00 Intake Total 550 ml 660 ml 290 ml 490 ml 547 ml Output Total 450 ml 650 ml 150 ml 350 ml 750 ml Balance 100 ml 10 ml 140 ml 140 ml -203 ml Intake Oral 0 ml 0 ml IV Total 0 ml 0 ml Tube Feeding 300 ml 240 ml 140 ml 240 ml 307 ml Other 250 ml 420 ml 150 ml 250 ml 240 ml Output Urine Total 450 ml 650 ml 150 ml 350 ml 750 ml # Bowel Movements 1 1 0 Result Diagram: 11/21/15 9133 Objective Remarks This is a thin white male who is responsive and cooperative,with a trach tube in place. HEENT: Pupils are equal and reactive to light. few Throat secretions CHEST:Decreased breath sounds, with wheezes scattered. CARDIOVASCULAR: S1 and S2 is normal.No murmur. ABDOMEN: Soft, nondistended. BS +. He has a PEG tube in place. EXTREMITIES: No edema.muscle wasting. NEURO: Alert, and has weak extremities, but moves arms. .Reflexes not elicited.Skin is dry. Assessment and Plan Assessment and Plan IMPRESSION 1. Chronic Respiratory failure. 2. Sepsis, Aspiration, resolved . 3. Shock.Resolved. 4. Tracheobronchitis 5. Parkinson's disease 6. Dementia. 7. Severe Deconditioning. Plan : 1. Cont T Bar at 28 % all the time 2. Nebs qid , duoneb. 3. Cont tube feeds after 4 hrs at 40 Cc and Keep Head end up 45 degrees 4. Cont prednisone 5 mg daily. 5. Levsin .25 mg tid prn for Secretions 6. Cont Trach toilet and lavage. 8. PT to help in activity 9. PM valve to talk Darren Kiser MD Nov 23, 2015 18:41
[2015-11-23] MEDS: OLANZapine 5 MG TAB GT SCH (20:58)
[2015-11-23] MEDS: ENOXAPARIN SODIUM 40 MG/0.4 ML SYRINGE SQ SCH (20:58)
[2015-11-24] VITALS (12 sets, daily range): BP systolic 116–143; BP diastolic 69–92; PULSE 69–103; RESP 17–26; TEMP 97.1–99; O2SAT 94–100
[2015-11-24] MEDS: FREE WATER G-TUBE SCH ×6 (04:00→20:00)
[2015-11-24] MEDS: clonazePAM 1 MG TAB PO SCH ×3 (05:31→20:06)
[2015-11-24] MEDS: CARBIDOPA/LEVODOPA 25 MG/100 MG TAB GT SCH ×3 (05:31→20:06)
[2015-11-24] MEDS: INSULIN NovoLIN REGULAR SUPPLEMENTAL SCALE SQ SCH ×4 (05:41→17:32)
[2015-11-24 07:05] LABS: AUTOMATED NEUTROPHIL # 5.7 TH/MM3 (1.8-7.7); BASOPHIL # 0.1 TH/MM3 (0-0.2); BASOPHIL % 0.7 % (0.0-2.0); EOSINOPHIL # 0.2 TH/MM3 (0-0.4); EOSINOPHIL % 2.2 % (0.0-4.0); HEMATOCRIT 41.4 % (39.0-51.0); HEMO FLAGS DIFF FINAL; LYMPH % 24.4 % (9.0-44.0); LYMPHOCYTE # 2.2 TH/MM3 (1.0-4.8); MEAN CELL VOLUME 84.3 FL (80.0-100.0); MEAN CORPUSCULAR HEMOGLOBIN 28.2 PG (27.0-34.0); MEAN CORPUSCULAR HGB CONC 33.5 % (32.0-36.0); MONO % 8.6 % (0.0-8.0); NEUT % 64.1 % (16.0-70.0); PLATELET COUNT 260 TH/MM3 (150-450); RED BLOOD COUNT 4.91 MIL/MM3 (4.50-5.90); RED CELL DISTRIBUTION WIDTH 16.4 % (11.6-17.2); WHITE BLOOD COUNT 8.9 TH/MM3 (4.0-11.0)
[2015-11-24] MEDS: ARTIFICIAL TEARS OPTH SOLN 15 ML BTL EACH EYE SCH ×3 (07:40→17:32)
[2015-11-24] MEDS: CHLORHEXIDINE 0.12% (ORAL KIT) 15 ML CUP MT SCH ×2 (07:40→20:00)
[2015-11-24] MEDS: ACETAMINOPHEN/HYDROcodone 325 MG/5 MG TAB PO PRN (07:45)
[2015-11-24] MEDS: LANSOPRAZOLE SOLUTAB 30 MG TAB NG SCH (07:45)
[2015-11-24] MEDS: MIDODRINE 5 MG TAB G-TUBE SCH ×2 (07:45→20:06)
[2015-11-24] MEDS: predniSONE 5 MG TAB PO SCH (07:45)
[2015-11-24] MEDS: LACTOBACILLUS ACIDOPHILUS TAB PO SCH ×3 (07:45→17:32)
[2015-11-24] MEDS: GABAPENTIN 300 MG CAP G-TUBE SCH ×2 (07:45→20:06)
[2015-11-24] MEDS: PARoxetine HCL 20 MG TAB G-TUBE SCH (07:45)
[2015-11-24] MEDS: QUEtiapine FUMARATE 25 MG TAB G-TUBE SCH ×2 (07:45→20:06)
[2015-11-24] MEDS: COLLAGENASE OINT 30 GM TUBE TOP SCH (07:46)
[2015-11-24] MEDS: SODIUM CHLORIDE 0.9% FLUSH 5 ML FLUSH IVF SCH ×2 (07:46→20:06)
[2015-11-24] MEDS: MORPHINE SULFATE 4 MG/ML INJ IV PUSH PRN (15:10)
--- NOTE | 2015-11-24 17:06 | HHI.PR ---
Subjective Remarks tolerating tube feedings maintaining good sats at 28% minimal secretions Objective Vitals Vital Signs Date Time Temp Pulse Resp B/P Pulse Ox O2 Delivery O2 Flow Rate FiO2 11/24/15 16:00 100 T-Piece 28 11/24/15 16:00 98.4 75 19 120/71 99 11/24/15 15:53 20 11/24/15 12:00 100 T-Piece 28 11/24/15 12:00 97.8 69 17 116/69 100 11/24/15 08:52 21 11/24/15 08:06 99 T-piece 28 11/24/15 08:00 97 11/24/15 08:00 97.6 98 26 143/89 100 11/24/15 08:00 100 T-Piece 11/24/15 06:05 98 T-piece 28 11/24/15 06:00 103 11/24/15 04:00 97.1 73 23 137/92 100 11/24/15 04:00 100 T-Piece 28 11/24/15 04:00 73 11/24/15 02:00 79 11/24/15 00:00 89 11/24/15 00:00 94 T-Piece 28 11/24/15 00:00 99.0 89 22 136/84 94 11/23/15 22:00 102 11/23/15 20:02 98 T-piece 5.00 28 11/23/15 20:00 99.2 93 26 110/64 97 11/23/15 20:00 97 T-Piece 11/23/15 20:00 93 I/O 11/23/15 11/23/15 11/23/15 11/24/15 11/24/15 11/24/15 07:00 15:00 23:00 07:00 15:00 23:00 Intake Total 490 ml 547 ml 490 ml 680 ml 817 ml Output Total 350 ml 750 ml 400 ml 500 ml 400 ml Balance 140 ml -203 ml 90 ml 180 ml 417 ml Intake Oral 0 ml 0 ml 0 ml IV Total 0 ml 0 ml 0 ml Tube Feeding 240 ml 307 ml 290 ml 280 ml 417 ml Other 250 ml 240 ml 200 ml 400 ml 400 ml Output Urine Total 350 ml 750 ml 400 ml 500 ml 400 ml # Bowel Movements 0 0 1 1 Result Diagram: 11/24/15 0625 11/21/15 1439 Imaging Last Impressions Abdomen X-Ray 11/21/15 0000 Signed Impressions: Service Date/Time: Saturday, November 21, 2015 14:10 - CONCLUSION: G-tube in place. No dilated bowel seen. Erlin Barajas MD Chest X-Ray 11/19/15 0000 Signed Impressions: Service Date/Time: November 20:45 - CONCLUSION: No acute disease. Erlin Mack MD Upper Extremity Ultrasound 10/13/15 0000 Signed Impressions: Service Date/Time: Tuesday, October 13, 2015 09:51 - CONCLUSION: 1. No evidence of deep venous thrombosis. John Anderson MD Renal Ultrasound 10/07/15 0000 Signed Impressions: Service Date/Time: Wednesday, October 07, 2015 18:29 - CONCLUSION: 1. No acute findings. 3.6 cm left renal cyst. Valdez catheter in bladder. Amaury Ellsworth MD Tunnelled Chest Tube Removal 08/05/15 1100 Signed Impressions: Service Date/Time: Wednesday, August 05, 2015 11:00 - CONCLUSION: Uncomplicated chest tube removal. Blaine Jackson MD Chest Tube Change 07/31/15 0000 Signed Impressions: Service Date/Time: Friday, July 31, 2015 14:34 - CONCLUSION: Uncomplicated reposition of previously placed chest tube as above. Blaine Jackson MD Chest Tube Insertion 07/30/15 0000 Signed Impressions: Service Date/Time: July 14:50 - CONCLUSION: Uncomplicated chest tube placement as above. Blaine Jackson MD Catheter Change 07/27/15 0000 Signed Impressions: Service Date/Time: Monday, July 27, 2015 14:43 - CONCLUSION: Uncomplicated gastrostomy tube exchange as above. Blaine Jackson MD Chest CT 07/11/15 0000 Signed Impressions: Service Date/Time: Saturday, July 11, 2015 09:49 - CONCLUSION: Scattered patchy densities significantly improved from previous study. Tiny anterior right basilar pneumothorax. Right-sided chest tube in good position. Néstor Matamoros MD Head CT 06/18/15 8483 Signed Impressions: Service Date/Time: June 19:31 - CONCLUSION: Diffuse atrophy unchanged. No acute intracranial findings. Kush Briscoe MD Abdomen/Pelvis CT 06/18/15 190 Signed Impressions: Service Date/Time: June 19:36 - CONCLUSION: 1. Chronic nonspecific urinary bladder wall thickening. Bladder collapsed with Valdez catheter in place. 2. Chronic bilateral mid to lower lung zone groundglass opacity. 3. Nonobstructing left renal calculus. 4. Distended rectum. Kush Briscoe MD Objective Remarks pupils reactive, anicteric, trach in place decrease breath sounds bilaterally, no rhonchi, no rales regular rhythm good bowel sounds, PEG in place extremities - no edema both upper extremities- moves spontaneously valdez catheter in place Procedures 07/26- PEG replacement 07/29- right pigtail catheter placement for new pneumothorax Date of Insertion: Oct 05, 2015 A/P Problem List: (1) Sepsis due to urinary tract infection ICD Code: A41.9 Status: Resolved (2) Acute respiratory failure ICD Code: J96.00 Status: Resolved (3) Chronic respiratory failure ICD Code: J96.10 Status: Chronic (4) Parkinson disease ICD Code: G20 Status: Chronic (5) UTI (urinary tract infection) ICD Code: N39.0 Status: Acute (6) Encephalopathy ICD Code: G93.40 Status: Resolved Assessment and Plan 55 years old male with tracheostomy and PEG tube [facility] resident admitted for: Acute on chronic respiratory failure- Chronic tracheostomy Pneumonia S/P recurrent Right pneumothorax status post pigtail catheter removal Suction secretions Duo nebs 4 times a day and when necessary Dr. Ag ff- Metabolic Encephalopathy - chronic Parkinson's disease Cognitive disorder/Underlying dementia Depression CT head 06/18/15: - diffuse atrophy unchanged. No acute intracranial findings Continue Sinemet 25/100 3 times a day via PEG, Seroquel 50 mg twice a day, olanzapine 5 mg a night, Klonopin 2 mg every 8 hours, Paxil 20 daily and Neurontin 300 mg twice a day. These medications have been slowly titrated up since admission Continue Roxanol 5 mg every 4 hours when necessary pain and fentanyl patch 50 g every 3 days for pain management. Cardiac History of orthostasis History of CAD, HLP, Hypertension Continue Midodrine 5 mg twice a day Monitor HR and BP keep MAP>65mmHg GI: Malnutrition/protein calorie - moderate Status post PEG Hemorrhoids Gastroesophageal reflux disease - Tolerating Jevity 1.5 at 50 cc/hr - Current Colace/senna for bowel regimen. /metabolic: Nonobstructing left renal calculus Hypernatremia - resolved Acute urinary retention - Monitor renal function, I/O's. electrolytes replacement per protocol. - Continue on Free H20 200ml 3 times a day monitor -valdez placed 07/29 ID: Candiduria ESBL positive Klebsiella/Pseudomonas pneumonia MRSA colonization - Multidrug resistant UTI- ESBL 02/19/15 , MRSA + 03/20/15 - Heena glabrata in urine 03/19/15 - Recheck blood, sputum and urine cultures 07/06 no growth - 06/17 - blood cultures 2 - CONS/staph epi - 06/17 - sputum - ESBL positive Klebsiella/Pseudomonas Treated 15 days with tobramycin aerosols twice a day. - 06/17 - urine - C. glabrata/tropicalis - treated with Diflucan --off Abx. monitor for signs of infections ( Fever, WBC) Endo: --SSI if needed for glycemic control Heme Anemia - Monitor CBC MSK Bilateral lower extremity Contractures Stage II DU - Wound care evaluate and treat - Continue physical therapy Prophylaxis - GI - Prevacid - DVT - SCDs/Lovenox CM assisting us with DC planning Claire Queen MD Nov 24, 2015 17:06 Claire Queen MD Nov 24, 2015 17:06
[2015-11-24] MEDS: OLANZapine 5 MG TAB GT SCH (20:06)
[2015-11-24] MEDS: ENOXAPARIN SODIUM 40 MG/0.4 ML SYRINGE SQ SCH (20:06)
[2015-11-25] VITALS (9 sets, daily range): BP systolic 94–145; BP diastolic 68–91; PULSE 75–101; RESP 16–24; TEMP 95.9–98.1; O2SAT 94–98
[2015-11-25] MEDS: FREE WATER G-TUBE SCH ×7 (04:10→23:53)
[2015-11-25] MEDS: INSULIN NovoLIN REGULAR SUPPLEMENTAL SCALE SQ SCH ×5 (05:54→22:57)
[2015-11-25] MEDS: clonazePAM 1 MG TAB PO SCH ×3 (05:55→22:56)
[2015-11-25] MEDS: CARBIDOPA/LEVODOPA 25 MG/100 MG TAB GT SCH ×3 (05:55→22:55)
[2015-11-25] MEDS: CHLORHEXIDINE 0.12% (ORAL KIT) 15 ML CUP MT SCH ×2 (08:00→22:56)
[2015-11-25] MEDS: HYOSCYAMINE SOLN 0.125 MG/ML 15 ML BTL PO PRN (08:21)
[2015-11-25] MEDS: COLLAGENASE OINT 30 GM TUBE TOP SCH (08:21)
[2015-11-25] MEDS: ARTIFICIAL TEARS OPTH SOLN 15 ML BTL EACH EYE SCH ×3 (08:21→18:11)
[2015-11-25] MEDS: PARoxetine HCL 20 MG TAB G-TUBE SCH (08:22)
[2015-11-25] MEDS: ACETAMINOPHEN/HYDROcodone 325 MG/5 MG TAB PO PRN (08:22)
[2015-11-25] MEDS: predniSONE 5 MG TAB PO SCH (08:22)
[2015-11-25] MEDS: MIDODRINE 5 MG TAB G-TUBE SCH ×2 (08:22→22:55)
[2015-11-25] MEDS: LACTOBACILLUS ACIDOPHILUS TAB PO SCH ×3 (08:22→18:11)
[2015-11-25] MEDS: QUEtiapine FUMARATE 25 MG TAB G-TUBE SCH ×2 (08:22→22:56)
[2015-11-25] MEDS: GABAPENTIN 300 MG CAP G-TUBE SCH ×2 (08:23→22:55)
[2015-11-25] MEDS: SODIUM CHLORIDE 0.9% FLUSH 5 ML FLUSH IVF SCH ×2 (08:23→22:57)
[2015-11-25] MEDS: LANSOPRAZOLE SOLUTAB 30 MG TAB NG SCH (08:23)
--- NOTE | 2015-11-25 15:28 | HHI.PR ---
Subjective Remarks tolerating tube feedings no diarrhea Objective Vitals Vital Signs Date Time Temp Pulse Resp B/P Pulse Ox O2 Delivery O2 Flow Rate FiO2 11/25/15 12:00 96.4 89 18 105/78 96 11/25/15 09:34 95 T-piece 6.00 28 11/25/15 08:00 98.1 93 16 102/72 94 11/25/15 02:49 98 T-piece 5.00 28 11/25/15 01:00 T-Piece 5.00 28 11/25/15 00:45 96.5 98 24 94/74 94 11/25/15 00:00 75 11/25/15 00:00 100 T-Piece 28 11/25/15 00:00 97.3 75 20 113/68 95 11/24/15 22:00 84 11/24/15 20:47 100 T-piece 11/24/15 20:00 100 T-Piece 28 11/24/15 20:00 84 11/24/15 20:00 98.2 84 24 126/72 98 11/24/15 16:00 100 T-Piece 28 11/24/15 16:00 98.4 75 19 120/71 99 11/24/15 15:53 20 I/O 11/24/15 11/24/15 11/24/15 11/25/15 11/25/15 11/25/15 07:00 15:00 23:00 07:00 15:00 23:00 Intake Total 680 ml 817 ml 558 ml 420 ml Output Total 500 ml 400 ml 300 ml 250 ml Balance 180 ml 417 ml 258 ml 170 ml Intake Oral 0 ml 0 ml IV Total 0 ml Tube Feeding 280 ml 417 ml 358 ml 420 ml Other 400 ml 400 ml 200 ml Output Urine Total 500 ml 400 ml 300 ml 250 ml # Bowel Movements 1 1 0 Result Diagram: 11/24/15 0625 11/21/15 1439 Imaging Last Impressions Abdomen X-Ray 11/21/15 0000 Signed Impressions: Service Date/Time: Saturday, November 21, 2015 14:10 - CONCLUSION: G-tube in place. No dilated bowel seen. Erlin Barajas MD Chest X-Ray 11/19/15 0000 Signed Impressions: Service Date/Time: November 20:45 - CONCLUSION: No acute disease. Erlin Mack MD Upper Extremity Ultrasound 10/13/15 0000 Signed Impressions: Service Date/Time: Tuesday, October 13, 2015 09:51 - CONCLUSION: 1. No evidence of deep venous thrombosis. John Anderson MD Renal Ultrasound 10/07/15 0000 Signed Impressions: Service Date/Time: Wednesday, October 07, 2015 18:29 - CONCLUSION: 1. No acute findings. 3.6 cm left renal cyst. Valdez catheter in bladder. Amaury Ellsworth MD Tunnelled Chest Tube Removal 08/05/15 1100 Signed Impressions: Service Date/Time: Wednesday, August 05, 2015 11:00 - CONCLUSION: Uncomplicated chest tube removal. Blaien Jackson MD Chest Tube Change 07/31/15 0000 Signed Impressions: Service Date/Time: Friday, July 31, 2015 14:34 - CONCLUSION: Uncomplicated reposition of previously placed chest tube as above. Blaine Jackson MD Chest Tube Insertion 07/30/15 0000 Signed Impressions: Service Date/Time: July 14:50 - CONCLUSION: Uncomplicated chest tube placement as above. Blaine Jackson MD Catheter Change 07/27/15 0000 Signed Impressions: Service Date/Time: Monday, July 27, 2015 14:43 - CONCLUSION: Uncomplicated gastrostomy tube exchange as above. Blaine Jackson MD Chest CT 07/11/15 0000 Signed Impressions: Service Date/Time: Saturday, July 11, 2015 09:49 - CONCLUSION: Scattered patchy densities significantly improved from previous study. Tiny anterior right basilar pneumothorax. Right-sided chest tube in good position. Néstor Matamoros MD Head CT 06/18/151902 Signed Impressions: Service Date/Time: June 19:31 - CONCLUSION: Diffuse atrophy unchanged. No acute intracranial findings. Kush Briscoe MD Abdomen/Pelvis CT 06/18/151902 Signed Impressions: Service Date/Time: June 19:36 - CONCLUSION: 1. Chronic nonspecific urinary bladder wall thickening. Bladder collapsed with Valdez catheter in place. 2. Chronic bilateral mid to lower lung zone groundglass opacity. 3. Nonobstructing left renal calculus. 4. Distended rectum. Kush Briscoe MD Objective Remarks pupils reactive, anicteric, trach in place decrease breath sounds bilaterally, no rhonchi, no rales regular rhythm good bowel sounds, PEG in place extremities - no edema both upper extremities- moves spontaneously sacral area - stage 2-3 decubitus valdez catheter in place Procedures 07/26- PEG replacement 07/29- right pigtail catheter placement for new pneumothorax Date of Insertion: Oct 05, 2015 A/P Problem List: (1) Sepsis due to urinary tract infection ICD Code: A41.9 Status: Resolved (2) Acute respiratory failure ICD Code: J96.00 Status: Resolved (3) Chronic respiratory failure ICD Code: J96.10 Status: Chronic (4) Parkinson disease ICD Code: G20 Status: Chronic (5) UTI (urinary tract infection) ICD Code: N39.0 Status: Acute (6) Encephalopathy ICD Code: G93.40 Status: Resolved Assessment and Plan 55 years old male with tracheostomy and PEG tube care home resident admitted for: Acute on chronic respiratory failure- Chronic tracheostomy Pneumonia S/P recurrent Right pneumothorax status post pigtail catheter removal Suction secretions Duo nebs 4 times a day and when necessary Dr. Ag ff- Metabolic Encephalopathy - chronic Parkinson's disease Cognitive disorder/Underlying dementia Depression CT head 06/18/15: - diffuse atrophy unchanged. No acute intracranial findings Continue Sinemet 25/100 3 times a day via PEG, Seroquel 50 mg twice a day, olanzapine 5 mg a night, Klonopin 2 mg every 8 hours, Paxil 20 daily and Neurontin 300 mg twice a day. These medications have been slowly titrated up since admission Continue Roxanol 5 mg every 4 hours when necessary pain and fentanyl patch 50 g every 3 days for pain management. Cardiac History of orthostasis History of CAD, HLP, Hypertension Continue Midodrine 5 mg twice a day Monitor HR and BP keep MAP>65mmHg GI: Malnutrition/protein calorie - moderate Status post PEG Hemorrhoids Gastroesophageal reflux disease - Tolerating Jevity 1.5 at 50 cc/hr - Current Colace/senna for bowel regimen. /metabolic: Nonobstructing left renal calculus Hypernatremia - resolved Acute urinary retention - Monitor renal function, I/O's. electrolytes replacement per protocol. - Continue on Free H20 200ml 3 times a day monitor -valdez placed 07/29 ID: Candiduria ESBL positive Klebsiella/Pseudomonas pneumonia MRSA colonization - Multidrug resistant UTI- ESBL 02/19/15 , MRSA + 03/20/15 - Heena glabrata in urine 03/19/15 - Recheck blood, sputum and urine cultures 07/06 no growth - 06/17 - blood cultures 2 - CONS/staph epi - 06/17 - sputum - ESBL positive Klebsiella/Pseudomonas Treated 15 days with tobramycin aerosols twice a day. - 06/17 - urine - C. glabrata/tropicalis - treated with Diflucan --off Abx. monitor for signs of infections ( Fever, WBC) Endo: --SSI if needed for glycemic control Heme Anemia - Monitor CBC MSK Bilateral lower extremity Contractures Stage II DU - Wound care evaluate and treat - Continue physical therapy - Santyl dressing- consult wound care nurse Prophylaxis - GI - Prevacid - DVT - SCDs/Lovenox CM assisting us with DC planning Claire Queen MD Nov 25, 2015 15:28
--- NOTE | 2015-11-25 19:51 | HHI.PR ---
Subjective Remarks Awake and Remains on a T Bar at FIO2 28 %. Responds to questions. No wheezing Tolerates tube feeds. No fever. Objective Vital Signs Date Time Temp Pulse Resp B/P Pulse Ox O2 Delivery O2 Flow Rate FiO2 11/25/15 16:00 96.8 80 16 110/72 98 11/25/15 12:00 96.4 89 18 105/78 96 11/25/15 09:34 95 T-piece 6.00 28 11/25/15 08:05 T-Piece 5.00 28 11/25/15 08:00 98.1 93 16 102/72 94 11/25/15 08:00 99 11/25/15 02:49 98 T-piece 5.00 28 11/25/15 01:00 T-Piece 5.00 28 11/25/15 00:45 96.5 98 24 94/74 94 11/25/15 00:00 75 11/25/15 00:00 100 T-Piece 28 11/25/15 00:00 97.3 75 20 113/68 95 11/24/15 22:00 84 11/24/15 20:47 100 T-piece 11/24/15 20:00 100 T-Piece 28 11/24/15 20:00 84 11/24/15 20:00 98.2 84 24 126/72 98 I/O 11/24/15 11/24/15 11/24/15 11/25/15 11/25/15 11/25/15 07:00 15:00 23:00 07:00 15:00 23:00 Intake Total 680 ml 817 ml 558 ml 420 ml Output Total 500 ml 400 ml 300 ml 250 ml Balance 180 ml 417 ml 258 ml 170 ml Intake Oral 0 ml 0 ml IV Total 0 ml Tube Feeding 280 ml 417 ml 358 ml 420 ml Other 400 ml 400 ml 200 ml Output Urine Total 500 ml 400 ml 300 ml 250 ml # Bowel Movements 1 1 0 Result Diagram: 11/24/15 0625 11/21/15 1439 Objective Remarks This is a thin white male who is responsive and cooperative,with a trach tube in place. HEENT: Pupils are equal and reactive to light. few Throat secretions CHEST:Decreased breath sounds, with occ basal crackles. CARDIOVASCULAR: S1 and S2 is normal.No murmur. ABDOMEN: Soft, nondistended. BS +. He has a PEG tube in place. EXTREMITIES: No edema.muscle wasting. NEURO: Alert, and has weak extremities, but moves arms. .Skin is dry. Assessment and Plan Assessment and Plan IMPRESSION 1. Chronic Respiratory failure. 2. Sepsis, Aspiration, resolved . 3. Shock.Resolved. 4. Tracheobronchitis 5. Parkinson's disease 6. Dementia. 7. Severe Deconditioning. Plan : 1. Cont T Bar at 28 % all the time 2. Nebs qid , duoneb. 3. Cont tube feeds after 4 hrs at 40 Cc and Keep Head end up 45 degrees 4. Cont prednisone 5 mg daily. 5. Levsin .25 mg tid prn for Secretions 6. Cont Trach toilet and lavage. 8. PT to help in activity 9. PM valve to talk Darren Kiser MD Nov 25, 2015 19:51
[2015-11-25] MEDS: ENOXAPARIN SODIUM 40 MG/0.4 ML SYRINGE SQ SCH (22:57)
[2015-11-25] MEDS: OLANZapine 5 MG TAB GT SCH (23:53)
[2015-11-26] VITALS (8 sets, daily range): BP systolic 80–109; BP diastolic 50–78; PULSE 92–110; RESP 10–36; TEMP 96–99.4; O2SAT 91–99
[2015-11-26] MEDS: FREE WATER G-TUBE SCH ×5 (04:20→22:53)
[2015-11-26] MEDS: CARBIDOPA/LEVODOPA 25 MG/100 MG TAB GT SCH ×3 (05:30→22:51)
[2015-11-26] MEDS: clonazePAM 1 MG TAB PO SCH ×3 (05:30→22:50)
[2015-11-26] MEDS: HYOSCYAMINE SOLN 0.125 MG/ML 15 ML BTL PO PRN ×3 (05:31→17:54)
[2015-11-26] MEDS: INSULIN NovoLIN REGULAR SUPPLEMENTAL SCALE SQ SCH ×3 (05:31→18:00)
[2015-11-26] MEDS: CHLORHEXIDINE 0.12% (ORAL KIT) 15 ML CUP MT SCH ×2 (08:00→22:52)
[2015-11-26] MEDS: LACTOBACILLUS ACIDOPHILUS TAB PO SCH ×3 (09:25→17:38)
[2015-11-26] MEDS: PARoxetine HCL 20 MG TAB G-TUBE SCH (09:25)
[2015-11-26] MEDS: QUEtiapine FUMARATE 25 MG TAB G-TUBE SCH ×2 (09:25→22:50)
[2015-11-26] MEDS: predniSONE 5 MG TAB PO SCH (09:26)
[2015-11-26] MEDS: SODIUM CHLORIDE 0.9% FLUSH 5 ML FLUSH IVF SCH ×2 (09:26→22:52)
[2015-11-26] MEDS: GABAPENTIN 300 MG CAP G-TUBE SCH ×2 (09:26→22:51)
[2015-11-26] MEDS: LANSOPRAZOLE SOLUTAB 30 MG TAB NG SCH (09:26)
[2015-11-26] MEDS: ARTIFICIAL TEARS OPTH SOLN 15 ML BTL EACH EYE SCH ×3 (09:27→17:52)
[2015-11-26] MEDS: COLLAGENASE OINT 30 GM TUBE TOP SCH (09:27)
[2015-11-26] MEDS: MIDODRINE 5 MG TAB G-TUBE SCH ×2 (09:34→22:51)
[2015-11-26] MEDS: ACETAMINOPHEN/HYDROcodone 325 MG/5 MG TAB PO PRN (09:35)
[2015-11-26] MEDS: ONDANSETRON HCL 4 MG/2 ML VIAL IV PRN (11:54)
--- NOTE | 2015-11-26 12:03 | HHI.PR ---
Subjective Remarks patient tachypneic vomited tube feedings tube feedings suctioned out of trac Objective Vitals Vital Signs Date Time Temp Pulse Resp B/P Pulse Ox O2 Delivery O2 Flow Rate FiO2 11/26/15 09:45 93 T-piece 5.00 35 11/26/15 09:00 T-Piece 5.00 11/26/15 08:00 97.0 110 20 109/78 94 11/26/15 04:00 98.0 102 22 96/54 94 11/25/15 20:17 97 T-piece 28 11/25/15 20:00 95.9 101 24 145/91 98 11/25/15 20:00 T-Piece 5.00 28 11/25/15 16:00 96.8 80 16 110/72 98 11/25/15 12:00 96.4 89 18 105/78 96 I/O 11/25/15 11/25/15 11/25/15 11/26/15 11/26/15 11/26/15 07:00 15:00 23:00 07:00 15:00 23:00 Intake Total 420 ml 1657 ml Output Total 250 ml 125 ml 100 ml Balance 170 ml -125 ml 1557 ml Intake Oral 0 ml Tube Feeding 420 ml 1657 ml Output Urine Total 250 ml 125 ml 100 ml # Bowel Movements 1 Result Diagram: 11/24/15 0625 Imaging Last Impressions Abdomen X-Ray 11/21/15 0000 Signed Impressions: Service Date/Time: Saturday, November 21, 2015 14:10 - CONCLUSION: G-tube in place. No dilated bowel seen. Erlin Barajas MD Chest X-Ray 11/19/15 0000 Signed Impressions: Service Date/Time: November 20:45 - CONCLUSION: No acute disease. Erlin Mack MD Upper Extremity Ultrasound 10/13/15 0000 Signed Impressions: Service Date/Time: Tuesday, October 13, 2015 09:51 - CONCLUSION: 1. No evidence of deep venous thrombosis. John Anderson MD Renal Ultrasound 10/07/15 0000 Signed Impressions: Service Date/Time: Wednesday, October 07, 2015 18:29 - CONCLUSION: 1. No acute findings. 3.6 cm left renal cyst. Valdez catheter in bladder. Amaury Ellsworth MD Tunnelled Chest Tube Removal 08/05/15 1100 Signed Impressions: Service Date/Time: Wednesday, August 05, 2015 11:00 - CONCLUSION: Uncomplicated chest tube removal. Blaine Jackson MD Chest Tube Change 07/31/15 0000 Signed Impressions: Service Date/Time: Friday, July 31, 2015 14:34 - CONCLUSION: Uncomplicated reposition of previously placed chest tube as above. Blaine Jackson MD Chest Tube Insertion 07/30/15 0000 Signed Impressions: Service Date/Time: July 14:50 - CONCLUSION: Uncomplicated chest tube placement as above. Blaine Jackson MD Catheter Change 07/27/15 0000 Signed Impressions: Service Date/Time: Monday, July 27, 2015 14:43 - CONCLUSION: Uncomplicated gastrostomy tube exchange as above. Blaine Jackson MD Chest CT 07/11/15 0000 Signed Impressions: Service Date/Time: Saturday, July 11, 2015 09:49 - CONCLUSION: Scattered patchy densities significantly improved from previous study. Tiny anterior right basilar pneumothorax. Right-sided chest tube in good position. Néstor Matamoros MD Head CT 06/18/151902 Signed Impressions: Service Date/Time: June 19:31 - CONCLUSION: Diffuse atrophy unchanged. No acute intracranial findings. Kush Briscoe MD Abdomen/Pelvis CT 06/18/151902 Signed Impressions: Service Date/Time: June 19:36 - CONCLUSION: 1. Chronic nonspecific urinary bladder wall thickening. Bladder collapsed with Valdez catheter in place. 2. Chronic bilateral mid to lower lung zone groundglass opacity. 3. Nonobstructing left renal calculus. 4. Distended rectum. Kush Briscoe MD Objective Remarks in distress, tachycardic, tachypneic pupils reactive, anicteric, trach in place bilaterally,coarse rales, rhonchi regular rhythm- tachycardic good bowel sounds, PEG in place extremities - no edema both upper extremities- moves spontaneously sacral area - stage 2-3 decubitus valdez catheter in place Procedures 07/26- PEG replacement 07/29- right pigtail catheter placement for new pneumothorax Urinary Catheter: Yes Date of Insertion: Oct 05, 2015 A/P Problem List: (1) Sepsis due to urinary tract infection ICD Code: A41.9 Status: Resolved (2) Acute respiratory failure ICD Code: J96.00 Status: Resolved (3) Chronic respiratory failure ICD Code: J96.10 Status: Chronic (4) Parkinson disease ICD Code: G20 Status: Chronic (5) UTI (urinary tract infection) ICD Code: N39.0 Status: Acute (6) Encephalopathy ICD Code: G93.40 Status: Resolved Assessment and Plan 55 years old male with tracheostomy and PEG tube care home resident admitted for: Sepsis SHOCK - likely aspiration bolus IV with maintenance hold tube feedings blood cultures CBC, BMP now, lactic acid protocol Start IV zosyn Acute on chronic respiratory failure- in acute distress Chronic tracheostomy Pneumonia S/P recurrent Right pneumothorax status post pigtail catheter removal Suction secretions Duo nebs 4 times a day and when necessary Pulmonary ff check ABG Metabolic Encephalopathy - chronic Parkinson's disease Cognitive disorder/Underlying dementia Depression CT head 06/18/15: - diffuse atrophy unchanged. No acute intracranial findings Continue Sinemet 25/100 3 times a day via PEG, Seroquel 50 mg twice a day, olanzapine 5 mg a night, Klonopin 2 mg every 8 hours, Paxil 20 daily and Neurontin 300 mg twice a day. These medications have been slowly titrated up since admission Continue Roxanol 5 mg every 4 hours when necessary pain and fentanyl patch 50 g every 3 days for pain management. Cardiac History of orthostasis History of CAD, HLP, Hypertension Continue Midodrine 5 mg twice a day Monitor HR and BP keep MAP>65mmHg GI: Malnutrition/protein calorie - moderate Status post PEG Hemorrhoids Gastroesophageal reflux disease - Tolerating Jevity 1.5 at 50 cc/hr - Current Colace/senna for bowel regimen. /metabolic: Nonobstructing left renal calculus Hypernatremia - resolved Acute urinary retention - Monitor renal function, I/O's. electrolytes replacement per protocol. - Continue on Free H20 200ml 3 times a day monitor -valdez placed 07/29 ID: Candiduria ESBL positive Klebsiella/Pseudomonas pneumonia MRSA colonization - Multidrug resistant UTI- ESBL 02/19/15 , MRSA + 03/20/15 - Heena glabrata in urine 03/19/15 - Recheck blood, sputum and urine cultures 07/06 no growth - 06/17 - blood cultures 2 - CONS/staph epi - 06/17 - sputum - ESBL positive Klebsiella/Pseudomonas Treated 15 days with tobramycin aerosols twice a day. - 06/17 - urine - C. glabrata/tropicalis - treated with Diflucan --off Abx. monitor for signs of infections ( Fever, WBC) Endo: --SSI if needed for glycemic control Heme Anemia - Monitor CBC MSK Bilateral lower extremity Contractures Stage II DU - Wound care evaluate and treat - Continue physical therapy - Santyl dressing- consult wound care nurse Prophylaxis - GI - Prevacid - DVT - SCDs/Lovenox I updated our Palliative care service- Ms. Meadows in patient's change of status and she will touch base with family I will continue aggressive medical management. DNR code status- No intubation- d/w Palliative care service Claire Queen MD Nov 26, 2015 12:03
[2015-11-26] MEDS ORDERED: SODIUM CHLOR 0.9% 1000 ML INJ 1,000 ML IV ONE (12:15)
--- NOTE | 2015-11-26 12:58 | RADRPT ---
EXAM DATE/TIME: 11/26/2015 12:25 [facility] COMPARISON: CHEST SINGLE AP, November 19, 2015, 20:45. INDICATIONS : Dyspnea. MEDICAL HISTORY : None. SURGICAL HISTORY : None. ENCOUNTER: Subsequent ACUITY: 1 week PAIN SCORE: Non-responsive. LOCATION: Bilateral chest FINDINGS: A single view of the chest demonstrates the lungs to be symmetrically aerated. A good portion of the lateral aspect of the right lung is not included on this study. Left lung is grossly clear. No obviou s effusions. Heart size is normal. Tracheostomy tube is stable in position. Osseous structures are in tact. CONCLUSION: 1. Visualized portions of the lungs are clear. The lateral aspect of the right lung is not included o n this study. 2. No effusions. Heart size remains normal. 3. Tracheostomy tube is stable in position. Scott Goode MD on November 26, 2015 at 12:51 Board Certified Radiologist. This report was verified electronically.
[2015-11-26 12:59] LABS: BLOOD GAS BASE EXCESS 5.6 mmol/L (-2-2); BLOOD GAS CARBOXYHEMOGLOBIN 1.4 % (0-4); BLOOD GAS HCO3 29 mmol/L (22-26); BLOOD GAS METHEMOGLOBIN 0.6 % (0-2); BLOOD GAS O2 HGB SATURATION 88 % (90-100); BLOOD GAS OXYGEN CONTENT 17.2 Vol % (12.0-20.0); BLOOD GAS PCO2 41 mmHg (38-42); BLOOD GAS PO2 60 mmHg (61-120); TEMP CORR TO 98.6
--- NOTE | 2015-11-26 12:59 | RADRPT ---
EXAM DATE/TIME: 11/26/2015 12:34 [facility] COMPARISON: ABDOMEN KUB ONLY, November 21, 2015, 14:10. INDICATIONS : [place]. MEDICAL HISTORY : None. SURGICAL HISTORY : None. ENCOUNTER: Initial ACUITY: 3 days PAIN SCORE: Non-responsive. LOCATION: Bilateral abdomen. FINDINGS: Supine view of the abdomen was performed. The abdominal bowel gas pattern is normal. Gastrostomy tu be in the left upper abdominal quadrant. No abnormal masses, calcifications, or organomegaly is seen. Patient remains contracted. Multiple osseous screws secure the left hip. CONCLUSION: 1. Nonobstructive bowel gas pattern. 2. Stable position of gastrostomy tube. Multiple surgical screws secure the proximal left femur. 3. No obvious pneumoperitoneum on the single projection provided. Scott Goode MD on November 26, 2015 at 12:56 Board Certified Radiologist. This report was verified electronically.
[2015-11-26 13:00] LABS: CRITICAL VALUE YES
[2015-11-26 13:02] LABS: DRAW SITE RT BRACHIAL; LITER FLOW 6 L/M; OXYGEN DEVICE T-PIECE
[2015-11-26 13:03] LABS: NUMBER OF ARTERIAL PUNCTURES 1; STAT YES; ULNAR PULSE Y
[2015-11-26 13:10] LABS: FIO2 35 %
[2015-11-26 13:47] LABS: AUTOMATED NEUTROPHIL # 14.1 TH/MM3 (1.8-7.7); BASOPHIL # 0.1 TH/MM3 (0-0.2); BASOPHIL % 0.4 % (0.0-2.0); EOSINOPHIL % 0.1 % (0.0-4.0); HEMATOCRIT 42.5 % (39.0-51.0); HEMO FLAGS DIFF FINAL; LYMPH % 2.6 % (9.0-44.0); LYMPHOCYTE # 0.4 TH/MM3 (1.0-4.8); MEAN CELL VOLUME 84.5 FL (80.0-100.0); MEAN CORPUSCULAR HEMOGLOBIN 27.4 PG (27.0-34.0); MEAN CORPUSCULAR HGB CONC 32.5 % (32.0-36.0); MONO % 5.6 % (0.0-8.0); NEUT % 91.3 % (16.0-70.0); PLATELET COUNT 254 TH/MM3 (150-450); RED BLOOD COUNT 5.03 MIL/MM3 (4.50-5.90); RED CELL DISTRIBUTION WIDTH 16.7 % (11.6-17.2); WHITE BLOOD COUNT 15.4 TH/MM3 (4.0-11.0)
[2015-11-26] MEDS: PIPERACIL-TAZO 4.5 GM PREMIX 100 ML IV SCH ×2 (13:49→17:38)
[2015-11-26] MEDS: SODIUM CHLOR 0.9% 1000 ML INJ 1,000 ML IV SCH (14:11)
--- NOTE | 2015-11-26 14:19 | HHI.HCPN ---
12:46pm: Call from Dr. Queen to report patient is declining, likely aspiration. I left message for daughter/HCS Radha to return call [facility] to provide medical update. 2:02pm: Called daughter Radha again from my cell phone, she answered and immediately asked if she could call me back in 10 minutes. I told her I only needed a moment of her time to provide medical update as her dad is not doing well. She replied "have you talked to the claim attorney (regarding financial issues at SNF)?" I explained that the claim attorney would be speaking with case management not me. I told her her father was not doing well, likely recurrent aspiration. I told her we are trying to reverse what we can, but that her dad appears to be dying. She sat on phone for a moment, did not answer or respond to my asking if she heard me or if she is okay. Then she hung up or was disconnected. . ALOK JONES Nov 26, 2015 14:19
[2015-11-26 14:20] LABS: BICARBONATE 31.8 MEQ/L (21.0-32.0); POTASSIUM 4.2 MEQ/L (3.5-5.1)
[2015-11-26 15:36] LABS: LACTIC ACID GHOST NOT REPORTABLE
--- NOTE | 2015-11-26 18:56 | HHI.PR ---
Subjective Remarks Awake and Remains on a T Bar at FIO2 28 %. Responds to questions.Vomited and BP dropped. Now on IV NS Off tube feeds. No fever. Objective Vital Signs Date Time Temp Pulse Resp B/P Pulse Ox O2 Delivery O2 Flow Rate FiO2 11/26/15 17:57 90/60 11/26/15 16:00 97.0 110 10 80/50 91 11/26/15 12:00 96.0 110 20 89/60 93 11/26/15 09:45 93 T-piece 5.00 35 11/26/15 09:00 T-Piece 5.00 11/26/15 08:00 97.0 110 20 109/78 94 11/26/15 04:00 98.0 102 22 96/54 94 11/25/15 20:17 97 T-piece 28 11/25/15 20:00 95.9 101 24 145/91 98 11/25/15 20:00 T-Piece 5.00 28 I/O 11/25/15 11/25/15 11/25/15 11/26/15 11/26/15 11/26/15 06:59 14:59 22:59 06:59 14:59 22:59 Intake Total 420 ml 1657 ml Output Total 250 ml 125 ml 100 ml 60.0 ml Balance 170 ml -125 ml 1557 ml -60.0 ml Intake Oral 0 ml Tube Feeding 420 ml 1657 ml Output Urine Total 250 ml 125 ml 100 ml 50 ml Tube Feeding Residual Discard 10.0 ml # Bowel Movements 1 3 Result Diagram: 11/26/15 1320 11/26/15 1320 Objective Remarks This is a thin white male who is responsive and cooperative,with a trach tube in place. HEENT: Pupils are equal and reactive to light. few Throat secretions CHEST:Decreased breath sounds, with wheeze and occ basal crackles. CARDIOVASCULAR: S1 and S2 is normal.No murmur. ABDOMEN: Soft, nondistended. BS +. He has a PEG tube in place. EXTREMITIES: No edema.muscle wasting. NEURO: Alert, and has weak extremities, but moves arms. .Skin is dry. Assessment and Plan Assessment and Plan IMPRESSION 1. Chronic Respiratory failure. 2. Sepsis, Aspiration, resolved . 3. Shock.Resolved. 4. Tracheobronchitis 5. Parkinson's disease 6. Dementia. 7. Severe Deconditioning. Plan : 1. Cont T Bar at 35 % all the time 2. Nebs qid , duoneb. 3. Hold tube feeds and Keep Head end up 45 degrees 4. Cont prednisone 5 mg daily. 5. Levsin .25 mg tid prn for Secretions 6. Cont Trach toilet and lavage. 8. PT to help in activity 9. IV NS at 100CC 10. Labs and CXR in am Darren Kiser MD Nov 26, 2015 18:56
[2015-11-26] MEDS: OLANZapine 5 MG TAB GT SCH (22:52)
[2015-11-26] MEDS: ENOXAPARIN SODIUM 40 MG/0.4 ML SYRINGE SQ SCH (22:53)
[2015-11-27] VITALS (10 sets, daily range): BP systolic 82–142; BP diastolic 45–90; PULSE 65–110; RESP 16–32; TEMP 95.5–99.1; O2SAT 63–97
[2015-11-27] MEDS: FREE WATER G-TUBE SCH ×6 (02:09→20:00)
[2015-11-27] MEDS: PIPERACIL-TAZO 4.5 GM PREMIX 100 ML IV SCH ×4 (02:09→18:00)
[2015-11-27] MEDS: SODIUM CHLOR 0.9% 1000 ML INJ 1,000 ML IV SCH ×3 (02:13→19:00)
[2015-11-27] MEDS ORDERED: MIDODRINE 5 MG TAB PO ONE (03:15)
[2015-11-27] MEDS ORDERED: SODIUM CHLOR 0.9% 1000 ML INJ 1,000 ML IV ONE (04:00)
[2015-11-27] MEDS: clonazePAM 1 MG TAB PO SCH ×2 (04:46→14:00)
[2015-11-27] MEDS: CARBIDOPA/LEVODOPA 25 MG/100 MG TAB GT SCH ×2 (04:47→14:00)
[2015-11-27] MEDS: INSULIN NovoLIN REGULAR SUPPLEMENTAL SCALE SQ SCH ×4 (05:54→17:33)
[2015-11-27] MEDS: CHLORHEXIDINE 0.12% (ORAL KIT) 15 ML CUP MT SCH ×2 (08:00→20:00)
[2015-11-27] MEDS: QUEtiapine FUMARATE 25 MG TAB G-TUBE SCH (08:27)
[2015-11-27] MEDS: GABAPENTIN 300 MG CAP G-TUBE SCH (08:27)
[2015-11-27] MEDS: LACTOBACILLUS ACIDOPHILUS TAB PO SCH ×3 (08:27→17:32)
[2015-11-27] MEDS: LANSOPRAZOLE SOLUTAB 30 MG TAB NG SCH (08:27)
[2015-11-27] MEDS: predniSONE 5 MG TAB PO SCH (08:27)
[2015-11-27] MEDS: MIDODRINE 5 MG TAB G-TUBE SCH (08:28)
[2015-11-27] MEDS: PARoxetine HCL 20 MG TAB G-TUBE SCH (08:28)
[2015-11-27] MEDS: ARTIFICIAL TEARS OPTH SOLN 15 ML BTL EACH EYE SCH ×3 (08:29→17:31)
[2015-11-27] MEDS: COLLAGENASE OINT 30 GM TUBE TOP SCH (08:30)
[2015-11-27] MEDS: SODIUM CHLORIDE 0.9% FLUSH 5 ML FLUSH IVF SCH ×2 (08:30→21:00)
--- NOTE | 2015-11-27 13:03 | HHI.PR ---
Subjective Remarks lethargic thick secretions on suctioning Objective Vitals Vital Signs Date Time Temp Pulse Resp B/P Pulse Ox O2 Delivery O2 Flow Rate FiO2 11/27/15 09:00 92 Trach Collar 5.00 35 T-Piece Humidified 11/27/15 07:40 95 T-piece 35 11/27/15 05:45 97.0 68 16 101/55 93 11/27/15 04:26 88 24 104/59 92 11/27/15 02:30 98.7 85 16 85/50 92 11/26/15 21:00 T-Piece 5.00 28 11/26/15 20:28 99 5.00 28 11/26/15 20:00 99.4 92 36 102/69 92 11/26/15 20:00 96 11/26/15 17:57 90/60 11/26/15 16:00 97.0 110 10 80/50 91 I/O 11/26/15 11/26/15 11/26/15 11/27/15 11/27/15 11/27/15 06:59 14:59 22:59 06:59 14:59 22:59 Intake Total 1657 ml 250 ml Output Total 100 ml 60.0 ml 250 ml Balance 1557 ml -60.0 ml 0 ml Intake Oral 250 ml Tube Feeding 1657 ml Output Urine Total 100 ml 50 ml 250 ml Tube Feeding Residual Discard 10.0 ml # Bowel Movements 1 3 1 1 Result Diagram: 11/26/15 1320 11/26/15 1320 Imaging Last Impressions Chest X-Ray 11/26/15 0000 Signed Impressions: Service Date/Time: November 12:25 - CONCLUSION: 1. Visualized portions of the lungs are clear. The lateral aspect of the right lung is not included on this study. 2. No effusions. Heart size remains normal. 3. Tracheostomy tube is stable in position. Scott Goode MD Abdomen X-Ray 11/26/15 0000 Signed Impressions: Service Date/Time: November 12:34 - CONCLUSION: 1. Nonobstructive bowel gas pattern. 2. Stable position of gastrostomy tube. Multiple surgical screws secure the proximal left femur. 3. No obvious pneumoperitoneum on the single projection provided. Scott Goode MD Upper Extremity Ultrasound 10/13/15 0000 Signed Impressions: Service Date/Time: Tuesday, October 13, 2015 09:51 - CONCLUSION: 1. No evidence of deep venous thrombosis. John Anderson MD Renal Ultrasound 10/07/15 Signed Impressions: Service Date/Time: Wednesday, October 07, 2015 18:29 - CONCLUSION: 1. No acute findings. 3.6 cm left renal cyst. Valdez catheter in bladder. Amaury Ellsworth MD Tunnelled Chest Tube Removal 08/05/15 1100 Signed Impressions: Service Date/Time: Wednesday, August 05, 2015 11:00 - CONCLUSION: Uncomplicated chest tube removal. Blaine Jackson MD Chest Tube Change 07/31/15 0000 Signed Impressions: Service Date/Time: Friday, July 31, 2015 14:34 - CONCLUSION: Uncomplicated reposition of previously placed chest tube as above. Blaine Jackson MD Chest Tube Insertion 07/30/15 0000 Signed Impressions: Service Date/Time: July 14:50 - CONCLUSION: Uncomplicated chest tube placement as above. Blaine Jackson MD Catheter Change 07/27/15 Signed Impressions: Service Date/Time: Monday, July 27, 2015 14:43 - CONCLUSION: Uncomplicated gastrostomy tube exchange as above. Blaine Jackson MD Chest CT 07/11/15 Signed Impressions: Service Date/Time: Saturday, July 11, 2015 09:49 - CONCLUSION: Scattered patchy densities significantly improved from previous study. Tiny anterior right basilar pneumothorax. Right-sided chest tube in good position. Néstor Matamoros MD Head CT 06/18/151902 Signed Impressions: Service Date/Time: June 19:31 - CONCLUSION: Diffuse atrophy unchanged. No acute intracranial findings. Kush Briscoe MD Abdomen/Pelvis CT 06/18/151902 Signed Impressions: Service Date/Time: June 19:36 - CONCLUSION: 1. Chronic nonspecific urinary bladder wall thickening. Bladder collapsed with Valdez catheter in place. 2. Chronic bilateral mid to lower lung zone groundglass opacity. 3. Nonobstructing left renal calculus. 4. Distended rectum. Kush Briscoe MD Objective Remarks lethargic pupils reactive, anicteric, trach in place decrease breath sounds, no rales or rhonchi regular rhythm- good bowel sounds, PEG in place extremities - no edema both upper extremities- moves spontaneously sacral area - stage 2-3 decubitus [address] catheter in place Procedures 07/26- PEG replacement 07/29- right pigtail catheter placement for new pneumothorax Date of Insertion: Oct 05, 2015 A/P Problem List: (1) Sepsis due to urinary tract infection ICD Code: A41.9 Status: Resolved (2) Acute respiratory failure ICD Code: J96.00 Status: Resolved (3) Chronic respiratory failure ICD Code: J96.10 Status: Chronic (4) Parkinson disease ICD Code: G20 Status: Chronic (5) UTI (urinary tract infection) ICD Code: N39.0 Status: Acute (6) Encephalopathy ICD Code: G93.40 Status: Resolved Assessment and Plan 55 years old male with tracheostomy and PEG tube [facility] resident admitted for: Sepsis SHOCK - likely aspiration bolus IV with maintenance hold tube feedings blood cultures CBC, BMP now, lactic acid protocol Start IV zosyn. ADd Levaquin- from last culture- pseudomonas - sensitive to Levaquin (reviewed previus C and S- latest one was resistant to Ceftaz) check UA- change valdez Acute on chronic respiratory failure- in acute distress Chronic tracheostomy Pneumonia S/P recurrent Right pneumothorax status post pigtail catheter removal Suction secretions Duo nebs 4 times a day and when necessary Pulmonary ff Metabolic Encephalopathy - chronic Parkinson's disease Cognitive disorder/Underlying dementia Depression CT head 06/18/15: - diffuse atrophy unchanged. No acute intracranial findings Continue Sinemet 25/100 3 times a day via PEG, Seroquel 50 mg twice a day, olanzapine 5 mg a night, Klonopin 2 mg every 8 hours, Paxil 20 daily and Neurontin 300 mg twice a day. These medications have been slowly titrated up since admission Continue Roxanol 5 mg every 4 hours when necessary pain and fentanyl patch 50 g every 3 days for pain management. Cardiac History of orthostasis History of CAD, HLP, Hypertension Continue Midodrine 5 mg twice a day Monitor HR and BP keep MAP>65mmHg GI: Malnutrition/protein calorie - moderate Status post PEG Hemorrhoids Gastroesophageal reflux disease - Tolerating Jevity 1.5 at 50 cc/hr - Current Colace/senna for bowel regimen. /metabolic: Nonobstructing left renal calculus Hypernatremia - resolved Acute urinary retention - Monitor renal function, I/O's. electrolytes replacement per protocol. - Continue on Free H20 200ml 3 times a day monitor -valdez placed 07/29 ID: Candiduria ESBL positive Klebsiella/Pseudomonas pneumonia MRSA colonization - Multidrug resistant UTI- ESBL 02/19/15 , MRSA + 03/20/15 - Heena glabrata in urine 03/19/15 - Recheck blood, sputum and urine cultures 07/06 no growth - 06/17 - blood cultures 2 - CONS/staph epi - 06/17 - sputum - ESBL positive Klebsiella/Pseudomonas Treated 15 days with tobramycin aerosols twice a day. - 06/17 - urine - C. glabrata/tropicalis - treated with Diflucan --off Abx. monitor for signs of infections ( Fever, WBC) Endo: --SSI if needed for glycemic control Heme Anemia - Monitor CBC MSK Bilateral lower extremity Contractures Stage II DU - Wound care evaluate and treat - Continue physical therapy - Santyl dressing- consult wound care nurse Prophylaxis - GI - Prevacid - DVT - SCDs/Lovenox 11/25 I updated our Palliative care service- Ms. Meadows in patient's change of status and she will touch base with family I will continue aggressive medical management. DNR code status- No intubation- d/w Palliative care service 11/26- d/w Palliative who spoke with patient's sister I tried calling number listed on chart - was a Rehab facility no other contact number listed Claire Queen MD Nov 27, 2015 13:03
[2015-11-27] MEDS: LEVOFLOXACIN 750 MG PREMIX INJ 150 ML IV SCH (14:00)
[2015-11-27 18:12] LABS: BLOOD, URINE TRACE (NEG); GLUCOSE,URINE NEG (NEG); KETONE, URINE NEG (NEG); NITRITE,URINE NEG (NEG); URINE COLOR YELLOW (YELLW/STRAW)
[2015-11-27 18:14] LABS: COMMENT (UR) CATH-CULTURE IND; CULTURE IF INDICATED CATH CULTURE IND
--- NOTE | 2015-11-27 18:38 | HHI.PR ---
Subjective Remarks Awake and Remains on a T Bar at FIO2 35 %. Responds to questions.No vomiting .Now on IV NS Off tube feeds. No fever. Objective Vital Signs Date Time Temp Pulse Resp B/P Pulse Ox O2 Delivery O2 Flow Rate FiO2 11/27/15 09:00 92 Trach Collar 5.00 35 T-Piece Humidified 11/27/15 07:40 95 T-piece 35 11/27/15 05:45 97.0 68 16 101/55 93 11/27/15 04:26 88 24 104/59 92 11/27/15 02:30 98.7 85 16 85/50 92 11/26/15 21:00 T-Piece 5.00 28 11/26/15 20:28 99 5.00 28 11/26/15 20:00 99.4 92 36 102/69 92 11/26/15 20:00 96 I/O 11/26/15 11/26/15 11/26/15 11/27/15 11/27/15 11/27/15 06:59 14:59 22:59 06:59 14:59 22:59 Intake Total 1657 ml 250 ml Output Total 100 ml 60.0 ml 250 ml Balance 1557 ml -60.0 ml 0 ml Intake Oral 250 ml Tube Feeding 1657 ml Output Urine Total 100 ml 50 ml 250 ml Tube Feeding Residual Discard 10.0 ml # Bowel Movements 1 3 1 1 Result Diagram: 11/26/15 1320 11/26/15 1320 Objective Remarks This is a thin white male who is responsive ,with a trach tube in place. HEENT: Pupils are equal and reactive to light. few Throat secretions CHEST:Decreased breath sounds, with wheeze and occ basal crackles. CARDIOVASCULAR: S1 and S2 is normal.No murmur. ABDOMEN: Soft, nondistended. BS +. He has a PEG tube in place. EXTREMITIES: No edema.muscle wasting. NEURO: Alert, and has weak extremities, but moves arms. Skin is dry. Assessment and Plan Assessment and Plan IMPRESSION 1. Chronic Respiratory failure. 2. Sepsis, Aspiration, resolved . 3. Shock.Resolved. 4. Tracheobronchitis 5. Parkinson's disease 6. Dementia. 7. Severe Deconditioning. Plan : 1. Cont T Bar at 35 % all the time 2. Nebs qid , duoneb. 3. Resume tube feeds at 30 CC and Keep Head end up 45 degrees 4. Cont prednisone 5 mg daily. 5. Levsin .25 mg tid prn for Secretions 6. Cont Trach toilet and lavage. 8. PT to help in activity 9. IV NS at 50 CC 10. Labs on Monday. Darren Kiser MD Nov 27, 2015 18:38
[2015-11-28] VITALS (13 sets, daily range): BP systolic 77–126; BP diastolic 48–92; PULSE 77–108; RESP 21–40; TEMP 97.2–97.7; O2SAT 0–100
[2015-11-28] MEDS ORDERED: FUROSEMIDE 40 MG/4 ML VIAL ONE (00:13)
[2015-11-28] MEDS: ACETAMINOPHEN 650 MG/20.3 ML UDC TUBE PRN (00:30)
--- NOTE | 2015-11-28 00:35 | RADRPT ---
EXAM DATE/TIME: 11/28/2015 00:21 [facility] COMPARISON: CHEST SINGLE AP, November 19, 2015, 20:45. CHEST SINGLE AP, November 26, 2015, 12:25. INDICATIONS : Shortness of breath. MEDICAL HISTORY : Hypertension. Gastroesophageal reflux disease. Diabetes mellitus type II. SURGICAL HISTORY : Tracheostomy ENCOUNTER: Subsequent ACUITY: 4 - 6 months PAIN SCORE: Non-responsive. LOCATION: Bilateral chest FINDINGS: Tracheostomy tube is present in satisfactory position. The lungs are clear without infiltrate, nodule , or mass except for scattered areas of scarring in the lungs. There is no appreciable pleural effus ion for technique. Heart and mediastinum are unremarkable. CONCLUSION: No acute cardiopulmonary disease. Eugene Schmid MD on November 28, 2015 at 0:33 Board Certified Radiologist. This report was verified electronically.
[2015-11-28] MEDS: RESP: ALBUTEROL 2.5 MG/3 ML NEB (PRN) NEB ×3 (00:36→04:20)
[2015-11-28] MEDS ORDERED: HYOSCYAMINE 0.5 MG/ML AMP IVP ONE (00:45)
[2015-11-28] MEDS: OLANZapine 5 MG TAB GT SCH ×2 (00:54→20:23)
[2015-11-28] MEDS: MIDODRINE 5 MG TAB G-TUBE SCH ×3 (00:54→20:23)
[2015-11-28] MEDS: clonazePAM 1 MG TAB PO SCH ×4 (00:54→20:22)
[2015-11-28] MEDS: QUEtiapine FUMARATE 25 MG TAB G-TUBE SCH ×3 (00:54→20:22)
[2015-11-28] MEDS: GABAPENTIN 300 MG CAP G-TUBE SCH ×3 (00:55→20:22)
[2015-11-28] MEDS: CARBIDOPA/LEVODOPA 25 MG/100 MG TAB GT SCH ×4 (00:55→20:22)
[2015-11-28] MEDS: ENOXAPARIN SODIUM 40 MG/0.4 ML SYRINGE SQ SCH ×2 (00:56→20:22)
[2015-11-28] MEDS: PIPERACIL-TAZO 4.5 GM PREMIX 100 ML IV SCH ×5 (01:09→23:55)
[2015-11-28] MEDS ORDERED: SODIUM CHLOR 0.9% 1000 ML INJ 1,000 ML IV ONE ×4 (01:15→10:30)
[2015-11-28 01:18] LABS: BASOPHIL % 0.3 % (0.0-2.0); EOSINOPHIL # 0.1 TH/MM3 (0-0.4); EOSINOPHIL % 0.4 % (0.0-4.0); HEMATOCRIT 33.1 % (39.0-51.0); HEMO FLAGS DIFF FINAL; LYMPH % 10.1 % (9.0-44.0); LYMPHOCYTE # 1.2 TH/MM3 (1.0-4.8); MEAN CELL VOLUME 84.8 FL (80.0-100.0); MEAN CORPUSCULAR HEMOGLOBIN 27.3 PG (27.0-34.0); MEAN CORPUSCULAR HGB CONC 32.1 % (32.0-36.0); MONO % 7.5 % (0.0-8.0); NEUT % 81.7 % (16.0-70.0); PLATELET COUNT 165 TH/MM3 (150-450); WHITE BLOOD COUNT 12.3 TH/MM3 (4.0-11.0)
[2015-11-28 01:35] LABS: ALT (GPT) 24 U/L (12-78); ANION GAP 10 MEQ/L (5-15); AST (GOT) 24 U/L (15-37); BICARBONATE 26.2 MEQ/L (21.0-32.0); BLOOD UREA NITROGEN 16 MG/DL (7-18); CHLORIDE 108 MEQ/L (98-107); GLOMERULAR FILTRATION RATE 153 ML/MIN (>89); POTASSIUM 3.5 MEQ/L (3.5-5.1); SODIUM (NA) 144 MEQ/L (136-145)
[2015-11-28 01:38] LABS: ALKALINE PHOSPHATASE 50 U/L (45-117); TOTAL BILIRUBIN ADULT 0.4 MG/DL (0.2-1.0)
--- NOTE | 2015-11-28 02:10 | HHI.PR ---
Addendum to Inpatient Note Addendum Reason: Additional Documentation Additional Information [facility] rapid response team was called for Mr. Foreman due to respiratory distress. The patient was found leaning sideways with a large amount of tube feeding in his bed. He was congested and tachypneic requiring aggressive trachea suctioning with large amounts of thick brownish mucus removed. The patient is seen in his room. He is awake and alert, but utilizing accessory muscles for breathing. Respirations averaging 40 breaths per minute and tachycardia noted. Moist rhonchi auscultated bilaterally; expiratory wheezing bilaterally. Tracheal secretions easily audible. Order placed for Levsin 0.25 mg IV x 1 dose. Heart rate went as high as 140s and cardiac telemetry shows sinus rhythm with PACs. I was unable to treat the heart rate because his blood pressure dropped to the 80s over 50s with a mean arterial pressure of 64. I ordered a fluid bolus of normal saline 1 L. I have placed tube feedings and flushes on hold until the patient is able to be evaluated again in the morning by Dr. Queen. Palliative care documentation was reviewed. The patient's code status is DNR. We will continue aggressive medical care short of resuscitation[facility] Labs including CBC, CMP, lactic acid, blood cultures, sputum culture, urinalysis with C&S if indicated. Stat chest x-ray was performed and showed no acute cardiopulmonary disease (it was performed post- aggressive trach suctioning). Lactic acid has decreased from 3.8 on 11/25 to 2.8. Electrolytes look mostly normal except for mildly elevated chloride. WBC decreased from 15.4 on 11/25 to 12.3 on 11/27; H&H decreased from 10.6 & 33.1 ( down from 13.8 & 42.5). Will recheck H&H in 4 hours. At 5:46, I was paged by RN because lactic acid is now 7.1. The patient's systolic BP is in the 90's after the previous bolus and I have ordered a 3rd bolus to be given. I have also instructed the nurse that the patient needs to be transferred to critical care unit for closer monitoring. I reviewed the case with Dr. Pop and she is in agreement with the plan. I attempted to call the patient's daughter but only received her voicemail. I left her a message instructing her to call the patient's current floor for a medical update on her father. As I was unable to further clarify how aggressive she wants medical management to be at this time, we will continue to pursue aggressive medical care short of resuscitation. At 6:26 a.m., I placed a call to the intensivists to discuss case. Awaiting call. Janice Esposito Nov 28, 2015 02:10
--- NOTE | 2015-11-28 03:01 | HHI.FPPN ---
Addendum to progress note ADDENDUM Reason for addendum: Additonal documentation Additional information Residents were call to a [facility] due to respiratory distress patient had been admitted for urosepsis and respiratory failure, currently with tracheostomy and noncommunicative. Per nursing staff he is not communicative at baseline. Patient is a DNR. On arrival patient's blood pressure was 80/60, respiratory rate 30, O2 saturation 70%. Breathing treatments were performed. Fluids given with lasix, and patient's blood pressure returned to normal range of 110/80, and oxygen saturation at 100%. Patient was closely monitored labs ordered, until primary team arrived and took over the [facility] GENERAL: Cachectic male, tracheostomy in place, ill-appearing. Awake SKIN: Warm and dry. HEAD: Normocephalic. EYES: No scleral icterus. No injection or drainage. NECK: Supple, trachea midline. No JVD or lymphadenopathy. CARDIOVASCULAR: Tachycardic rate and regular rhythm without murmurs, gallops, or rubs. RESPIRATORY: Breath sounds equal throughout, rhonchi in the lower lung bagley bilaterally worse on the right, transmitted upper airway sounds throughout GASTROINTESTINAL: Abdomen soft, non-tender, nondistended. MUSCULOSKELETAL: No cyanosis, or edema. BACK: Nontender without obvious deformity. No CVA tenderness. This is a 55-year-old with Parkinson's disease, admitted for urosepsis and respiratory failure currently on palliative care and DNR. [facility] for respiratory distress 1. Respiratory Distress -Chest x-ray ordered -ABG ordered -CBC, CMP ordered -Blood cultures ordered -IV bolus with Lasix -Albuterol, duo nebs -Ran Halicat until patient's primary team arrived Tony Ruano MD R2 Nov 28, 2015 03:01
[2015-11-28 03:06] LABS: LACTIC ACID GHOST NOT REPORTABLE
[2015-11-28] MEDS ORDERED: MIDODRINE 5 MG TAB PO ONE (03:45)
[2015-11-28] MEDS: FREE WATER G-TUBE SCH ×7 (04:00→23:50)
[2015-11-28] MEDS: INSULIN NovoLIN REGULAR SUPPLEMENTAL SCALE SQ SCH ×5 (05:04→23:50)
[2015-11-28] MEDS: HYOSCYAMINE SOLN 0.125 MG/ML 15 ML BTL PO PRN (05:05)
[2015-11-28 05:26] LABS: HEMATOCRIT 28.7 % (39.0-51.0); REVIEW FLAG FINAL
[2015-11-28] MEDS: CHLORHEXIDINE 0.12% (ORAL KIT) 15 ML CUP MT SCH ×2 (08:00→20:00)
[2015-11-28] MEDS ORDERED: NOREPINEPHRINE-DEXTROSE DRIP 250 ML IV ONE (08:37)
[2015-11-28] MEDS: COLLAGENASE OINT 30 GM TUBE TOP SCH (09:00)
[2015-11-28] MEDS: SODIUM CHLORIDE 0.9% FLUSH 5 ML FLUSH IVF SCH ×2 (09:00→20:22)
[2015-11-28] MEDS: ARTIFICIAL TEARS OPTH SOLN 15 ML BTL EACH EYE SCH ×3 (09:00→17:45)
[2015-11-28] MEDS: PARoxetine HCL 20 MG TAB G-TUBE SCH (09:13)
[2015-11-28] MEDS: LACTOBACILLUS ACIDOPHILUS TAB PO SCH ×3 (09:13→17:44)
[2015-11-28] MEDS: predniSONE 5 MG TAB PO SCH (09:13)
[2015-11-28] MEDS: LANSOPRAZOLE SOLUTAB 30 MG TAB NG SCH (09:14)
--- NOTE | 2015-11-28 10:42 | HHI.CCPN ---
Subjective Remarks/Hospital Course 06/17: Pt is a 54 yr man with multiple medical problems including Parkinson's disease, advanced dementia, hyponatremia, anxiety, pneumonia, GERD, cognitive disorder, and multidrug resistant UTI- ESBL02/19/15 , who resides in a long-term. Pt by report was found by staff in long-term to be less alert and having respiratory difficultly and fevers. Pt was brought to ED adn placed on ventilator. His workup was inclusive of labs, chest xray and ct head and abd/pelvis. WBC 16.4, +UTI, lactic acid 4, troponin ,0.02, BUN/ cre 18/ 0.76. CT head 06/18/15: diffuse atrophy unchanged. No acute intracranial findings ct abd/ pelvis with IV contrast: 06/18/15 Conclusion: 1. Chronic nonspecific urinary bladder wall thickening. Bladder collapsed with Putnam catheter in place. 2.Chronic bilateral mid to lower zone groundglass opacity. 3. Nonobstructing left renal calculus. 4. Distended rectum Pt admitted and fluid and abx ordered. 06/18: Drowsy, easily arousable. On mechanical ventilation via tracheostomy. Tachypneic. Resting tremor noted. 06/19: Drowsy, arousable. On mechanical ventilation via tracheostomy. 06/20: Drowsy, arousable. Remains on mechanical ventilation via tracheostomy. We'll repeat blood cultures, UA and urine cultures. Fluconazole IV added in view of yeast in urine. 07/06: Reconsulted as patient return to the ventilator on a right ventricular due to tachypnea. Low-grade temperatures. Tolerating tube feeding. Extremity encephalopathic demented patient with difficult neurological examination. 07/07: Status post chest tube placement by IR for right pneumothorax 07/06. Afebrile. Tolerating tube feeds. Positive BM. Currently tachypneic on the ventilator. Does not appear to be any acute distress. 07/08: Afebrile. Tolerating tube feeding. He is comfortable currently on CPAP trials 11/10. Positive BM. 07/09: Afebrile. Tolerating tube feeding. Appears comfortable on T bar. Positive BM. 07/10: Afebrile. Eyes are open. Remained on T piece overnight. Tolerating tube feeding. 07/11: MAXIMUM TEMPERATURE 100. Currently 98.6. Eyes are open. On ACV overnight secondary to "tachypnea and sweating". Switching back to PSV trials today. Goal is T piece during daytime, CPAP at night. 07/12: No acute events overnight. On PSV 15/5 -attempt TP up to 6 hours today. No pneumothorax on chest x-ray 07/13: Placed back on full ventilator support for tachypnea. Otherwise clinically unchanged. No fever today 07/14: Patient was on T piece yesterday evening, placed back on PSV overnight, patient mechanical ventilation this morning. Patient appears to be struggling with mechanical ventilation. Patient placed back on PSV with improvement 07/15: Patient placed back on mechanical ventilation last evening due to respiratory rate. It was indicated patient was tachypnea can the 40s. Patient on mechanical ventilation this time with respiration rate mid 20s. Chest tube still in place without any output, chest x-ray still indicating resolution of pneumothorax. 07/16: Patient seen and examined today. Patient placed back on mechanical ventilation overnight due to respiratory rate. Even on mechanical ventilation patient has respiration rate in the 30s. Patient afebrile, blood pressure stable. Continue vent weaning 07/17: Patient seen and examined. Currently afebrile. Currently on CPAP 15/5 @ 40%. Patient is awake with open mouth resting in bed in no apparent acute distress. Tolerating tube feeding. 2 bowel movements. 07/18: No neurological changes. Afebrile. 2 bowel moments. Tolerating tube feeding. We'll attempt TP trials today. On CPAP since 07/15 07/19 No events overnight. On CPAP with PS: 10, PEEP: 5 and FIO2 35%. Afebrile. On no sedation. 07/20 No events overnight. Tolerating CPAP. Afebrile. 07/21: Remains on CPAP. Attempt T piece trial today. Afebrile. One bowel movement. Tolerating tube feeding. 07/22: Afebrile. Positive BM. Tolerating tube feeding. Noted switched tracheostomy to #6 Shiley cuffed fenestrated. Neurologically unchanged 07/23: Afebrile. Positive BM. Tolerating tube feeding. Questionable leak in exchange trach. Place back on a rate/ACV overnight. Insufflated seems to be doing better at the present time. Will check chest x-ray. Possible he might need #6 XLT versus replacement of chronic #8 Shiley. 07/24: Tolerating TP today, RR in low 30s patient appears comfortable. No acute events overnight 07/25: Remains off the ventilator more than 36 hours now. Intermittently tachypneic probably breathing. Chest x-ray was clear yesterday. No acute events reported overnight. PEG not functioning per RN 08/02: Patient was transferred back to critical care service due to continuing ventilator management, tachypnea. Patient clinical status with no significant change. Patient with low-grade fever 100.2, 08/03: Patient seen and examined today. No significant change in clinical status. Patient still with chronic tachypnea. Patient afebrile now. 08/04: Patient seen and examined today. No change in clinical status. Patient still continues to have chronic tachypnea. Patient afebrile. Continue vent weaning 08/05: Patient seen and examined today. Patient had chest tube removed yesterday , chest x-ray shows redevelopment of pneumothorax. Chest tube replaced. Otherwise, patient still on ventilator with tachypnea. Afebrile 08/06: Patient seen and examined today. Patient went to have chest tube placed, repeat chest x-ray did not indicate any pneumothorax. No overnight events. We' ll need to pursue LTAC placement 08/07 No events overnight. On ventilator via trach. Afebrile. 08/08 Patient tolerated CPAP x4 hrs yesterday. Afebrile. On no sedation. 08/09 No events overnight. Tolerated CPAP x 12 hrs yesterday. Afebrile. 08/10 Patient tolerated TP's x 12 hrs yesterday back on ACV overnight. 08/11 No events overnight, currently on TP's with 40% FIO2. Afebrile. 08/12 On CPAP 10/5. Tolerated Tpiece 3 hours earlier today. Afebrile. 08/13 On CPAP 10/5. Not tolerating CPAP as well over last few days and RT notes challenge with suctioning respiratory secretions adequately. Discussing with healthcare proxy regarding exchange trach to 8.0. 08/14 Nursing and RT staff having continued difficulty suctioning respiratory secretions via 6.0 tracheostomy. KAREN Garcia did not consent to stoma dilation and trach upsize yesterday but said she would call back and let me know but no return call. Contacted again today and left a message. Afebrile. On CPAP 10/5. Brow furrowing on exam, appears to be in pain but pain not localizable. Tolerating tube feeds, had BM yesterday 08/15 Not tolerating CPAP today. Contacted healthcare surrogate again and discussed need for trach change. She consented and trach was dilated and up- sized to 8.0 Distal XLT to facilitate pulmonary toilet and to address volume leak. 08/16 No events overnight. Remains on ventilator via trach. Afebrile. Tolerating TF. 08/17 No events overnight. Afebrile. 08/18 Patient tolerated CPAP x 4 hrs yesterday. Afebrile.On ventilator via trach. 08/19 On CPAP 25/06. Temp max 99.3 08/20 Stenotrophomonas in sputum, started on Levaquin per ID. Temp max 99.8. On CPAP 20/09. Tube feeds were held because PEG was clogged but now PEG is functioning. 08/21 No events overnight. Afebrile. Remains on ventilator via trach. Has been tolerating CPAP trials for last 2 days. 08/22 No events overnight. Afebrile , Has been on CPAP all night with PS: 20, PEEP; 5 and FIO2 35%. 08/23 No events overnight. Remains on CPAP, T:99.9 08/24 No events overnight. On CPAP PS 10, PEEP; 5 and FIO2 35% overnight. Afebrile. 08/25 No events overnight. Afebrile. On CPAP overnight with PS 8, PEEP: 5 and FIO2 35%, afebrile. Tolerating TF. 08/26 Tolerating Tpiece. 08/27 Tolerated Tpiece yesterday and overnight. However this evening desaturated and was placed back on CPAP. Dr. Mistry attempted to update daughter Radha Foreman and discuss his overall poor prognosis for recovery, but call got disconnected midway through call and could not reach her back 08/28 On PSV 10/5 40% today. Afebrile. 08/29 On CPAP overnight. Now on Tpiece 70% per pulmonology. Increased yellow secretions noted. Temp max 99.1 Nursing staff expresses concern that he appears uncomfortable during all nursing care. Called elsa Garcia to update , no answer, left message to call me. 08/30: On CPAP overnight. Currently on T piece at 45%. Currently afebrile. Positive BM. Tolerating tube feeding. 08/31: On CPAP overnight. Will return T piece at 35%. MAXIMUM TEMPERATURE 99.6. 5 bowel movements. Tolerating tube feeds. Neurological examination unchanged. 09/01: Tmax 99.2. Currently afebrile. Currently in TPs at 35%. 7 bowel movement overnight. Tolerating tube feeding. Subjective: 09/19: Ciarra called secondary to aspiration on Gen. medical floor. Transfer to ICU and placed on mechanical ventilation. ABG shows CO2 retention. Etc. revealed no acute cardiac 20 finds however copious message to feed suctioned from trach tube 09/20 No events overnight. Afebrile. On ACV with RR 16, TV 500, PEEP: 5 and FIO2 40%. 09/21 No events overnight. Afebrile. 09/22 No events overnight. Tolerated CPAP all day yesterday with PS 12, PEEP:5 and FIO2 35%. Afebrile. 09/23 No events overnight. On no sedation Tolerated CPAP yesterday. Had T:100.3 last night. 09/24 Patient tolerated TP's x 6 hrs yesterday On CPAP 12/5 with 35% FIO2 overnight. Afebrile. 09/25 No events overnight. On CPAP overnight and TP's during day. Tolerating tube feeds. 10/11 Reconsult: Ciarra was called as patient was found hypotensive with SBP 80' s and tube feeds coming from trach site. Patient is receiving 1L bolus NS and STAT CXR showed mild pulm edema. On arrival to ICU patient was connected to ventilator ( On ACV RR 16, TV 500, PEEP:5 and FIO2 40% with sats 95%. Current BP 125/91 , P:81 10/12 Patient remains on ventilator overnight. Borderline low BP with MAP ranges 67-72. Afebrile. On no sedation. 10/13 Patient is on ventilator via trach, afebrile, WBC trending down. Patient was hypotensive yesterday responded to fluid resuscitation not on any pressors. 10/14: No acute events overnight. WBC count has normalized. Will start SBT as tolerated. CXR in am 10/15 No acute events overnight. Phosphorus low needs replacement. Otherwise neuro exam remains unchanged. remains on CPAP 10/16 Patient remains on ventilator via trach. On no sedation. Afebrile. 10/17 No acute events overnight. On ventilator via trach. Afebrile. 10/18 Tolerates CPAP, but unable to wean further. Otherwise no acute events overnight, remains afebrile 10/19 Patient is on ventilator via trach, UO 175ml in last 7 hrs. Afebrile. Tolerated CPAP x 6 hrs yesterday. 10/20 No acute events overnight. Tolerated CPAP for several hrs yesterday. Afebrile. UO better ( 1275ml in 24hrs). Given 1L NS total yesterday for decrease UO. 10/21 Patient is on ventilator via trach tolerated CPAP for most of day yesterday. Afebrile. Tolerating tube feeds. 10/22 No acute events overnight. Patient was on CPAP all day yesterday. Afebrile. 10/23 Patient tolerated all day yesterday. On ventilator via trach. Afebrile. 10/24 Patient remains on ventilator via trach. Afebrile. 10/25 Remains on vent on PSV 15/5. No acute events overnight. WBC slightly increased 10/26 PSV reduced to 10/5. Required AC/VC support yesterday as patient became tachypneic. No other changes 10/27 no acute changes overnight. Tolerating 10 over 5 PSV. WBC count has normalized, T piece today 10/28: No acute events overnight. Did not tolerate T piece trial yesterday. Tolerated CPAP. No fever 10/29: No acute events reported. Currently on 12 over 5 pressure support, reduced to 8/5. No fever 10/30 No acute events overnight. On CPAP with PS 10, PEEP: 5 and FIO2 35% overnight. Afebrile. 10/31: Remains on T piece since yesterday. 11/01: Was on T piece during day and C Pap at night. 11/01: Remains on T piece since yesterday morning. 11/27 Reconsult for sepsis, hypotension. Patient became hypotensive with SBP 80's given 3L crystalloids. T: 96.1 last night. Lactic acid 7.1 from 2.8. CXR this morning showed no acute disease. Remains unresponsive on TP's with 35% FIO2. Objective - Vital Signs Date Time Temp Pulse Resp B/P Pulse Ox O2 Delivery O2 Flow Rate FiO2 10/22/16 10:01 99 T-piece 35 10/22/16 04:26 7.00 11/28/15 04:00 102 34 77/48 11/27/15 23:45 99.1 Intake and Output 11/27/15 11/27/15 11/28/15 08:00 16:00 00:00 Intake Total 400 ml 0 ml Output Total 125 ml Balance 400 ml -125 ml Result Diagram: 11/28/15 0450 11/28/15 0050 Other Results Laboratory Tests Test 11/27/15 11/28/15 11/28/15 15:30 00:50 04:50 Urine Color YELLOW Urine Turbidity HAZY Urine pH 6.0 Urine Specific [place] 1.030 Urine Protein 30 mg/dL Urine Glucose (UA) NEG mg/dL Urine Ketones NEG mg/dL Urine Occult Blood TRACE Urine Nitrite NEG Urine Bilirubin NEG Urine Urobilinogen LESS THAN 2.0 MG/DL Urine Leukocyte Esterase MOD Urine RBC 10 /hpf Urine WBC 42 /hpf Microscopic Urinalysis Comment CATH-CULTURE IND White Blood Count 12.3 TH/MM3 Red Blood Count 3.90 MIL/MM3 Hemoglobin 10.6 GM/DL 9.5 GM/DL Hematocrit 33.1 % 28.7 % Mean Corpuscular Volume 84.8 FL Mean Corpuscular Hemoglobin 27.3 PG Mean Corpuscular Hemoglobin 32.1 % Concent Red Cell Distribution Width 16.0 % Platelet Count 165 TH/MM3 Mean Platelet Volume 9.7 FL Neutrophils (%) (Auto) 81.7 % Lymphocytes (%) (Auto) 10.1 % Monocytes (%) (Auto) 7.5 % Eosinophils (%) (Auto) 0.4 % Basophils (%) (Auto) 0.3 % Neutrophils # (Auto) 10.0 TH/MM3 Lymphocytes # (Auto) 1.2 TH/MM3 Monocytes # (Auto) 0.9 TH/MM3 Eosinophils # (Auto) 0.1 TH/MM3 Basophils # (Auto) 0.0 TH/MM3 CBC Comment DIFF FINAL Differential Comment Sodium Level 144 MEQ/L Potassium Level 3.5 MEQ/L Chloride Level 108 MEQ/L Carbon Dioxide Level 26.2 MEQ/L Anion Gap 10 MEQ/L Blood Urea Nitrogen 16 MG/DL Creatinine 0.56 MG/DL Estimat Glomerular Filtration 153 ML/MIN Rate Random Glucose 116 MG/DL Lactic Acid Level 2.8 mmol/L 7.1 mmol/L Calcium Level 9.1 MG/DL Total Bilirubin 0.4 MG/DL Aspartate Amino Transf 24 U/L (AST/SGOT) Alanine Aminotransferase 24 U/L (ALT/SGPT) Alkaline Phosphatase 50 U/L Total Protein 5.9 GM/DL Albumin 2.4 GM/DL Imaging Last Impressions Chest X-Ray 11/28/15 0000 Signed Impressions: Service Date/Time: Saturday, November 28, 2015 00:21 - CONCLUSION: No acute cardiopulmonary disease. Eugene Schmid MD Abdomen X-Ray 11/26/15 0000 Signed Impressions: Service Date/Time: November 12:34 - CONCLUSION: 1. Nonobstructive bowel gas pattern. 2. Stable position of gastrostomy tube. Multiple surgical screws secure the proximal left femur. 3. No obvious pneumoperitoneum on the single projection provided. Scott Goode MD Upper Extremity Ultrasound 10/13/15 0000 Signed Impressions: Service Date/Time: Tuesday, October 13, 2015 09:51 - CONCLUSION: 1. No evidence of deep venous thrombosis. John Anderson MD Renal Ultrasound 10/07/15 0000 Signed Impressions: Service Date/Time: Wednesday, October 07, 2015 18:29 - CONCLUSION: 1. No acute findings. 3.6 cm left renal cyst. Putnam catheter in bladder. Amaury Ellsworth MD Tunnelled Chest Tube Removal 08/05/15 1100 Signed Impressions: Service Date/Time: Wednesday, August 05, 2015 11:00 - CONCLUSION: Uncomplicated chest tube removal. Blaine Jackson MD Chest Tube Change 07/31/15 0000 Signed Impressions: Service Date/Time: Friday, July 31, 2015 14:34 - CONCLUSION: Uncomplicated reposition of previously placed chest tube as above. Blaine Jackson MD Chest Tube Insertion 07/30/15 0000 Signed Impressions: Service Date/Time: July 14:50 - CONCLUSION: Uncomplicated chest tube placement as above. Blaine Jackson MD Catheter Change 07/27/15 0000 Signed Impressions: Service Date/Time: Monday, July 27, 2015 14:43 - CONCLUSION: Uncomplicated gastrostomy tube exchange as above. Blaine Jackson MD Chest CT 07/11/15 0000 Signed Impressions: Service Date/Time: Saturday, July 11, 2015 09:49 - CONCLUSION: Scattered patchy densities significantly improved from previous study. Tiny anterior right basilar pneumothorax. Right-sided chest tube in good position. Néstor Matamoros MD Head CT 06/18/151902 Signed Impressions: Service Date/Time: June 19:31 - CONCLUSION: Diffuse atrophy unchanged. No acute intracranial findings. Kush Briscoe MD Abdomen/Pelvis CT 06/18/151902 Signed Impressions: Service Date/Time: , June 18, 2015 19:36 - CONCLUSION: 1. Chronic nonspecific urinary bladder wall thickening. Bladder collapsed with Putnam catheter in place. 2. Chronic bilateral mid to lower lung zone groundglass opacity. 3. Nonobstructing left renal calculus. 4. Distended rectum. Kush Briscoe MD Objective Remarks GENERAL: 54-year-old male, cachectic, debilitated with contractures on T piece. HEENT: NC/AT. PERRL. OP without erythema or exudates NECK: No JVD. Supple. 8.0 Distal XLT trach in place CARDIAC: RRR. S1/S2. No S4. No murmurs, clicks gallops or rubs. LUNGS: B/L equal air entry. On T piece. ABDOMEN: S/NT/ND. Positive BS EXTREMITIES: 1+ dependent pedal edema. Contractures and deformities of fingers. Stage III coccyx/sacral decubitus ulcer NEUROLOGY: Significant contractures of bilateral lower extremity, upper extremities. Eyes open spontaneously. Temporal and facial muscle wasting, muscular atrophy all extremities. Procedures 07/26- PEG replacement 07/29- right pigtail catheter placement for new pneumothorax Date of Insertion: Oct 05, 2015 A/P Assessment and Plan Neuro/Psych: Parkinson's disease Cognitive disorder Chronic encephalopathy Dementia Depression Contractures On no sedation. CT head 06/18/15: diffuse atrophy unchanged. No acute intracranial findings Continue Sinemet 25/100 q8 via PEG, Seroquel 50 mg twice a day, olanzapine 5 mg a night, Klonopin 2 mg every 8 hours, Paxil 20 daily Resp: Acute on chronic respiratory failure Chronic trach #8 Shiley distal XLT Pneumonia, aspiration (ESBL Klebsiella and Pseudomonas pneumonia) Right pneumothorax status post pigtail catheter 2 (resolved) Continue with oxygen keep sat >92% Bronchodilators, pulm toilet, trach care Pulmonary Dr. Restrepo following. change Prednisone to HC 100mg Q8 Exchanged to 8 Distal XLT on 08/15 to facilitate suctioning, trach care. CXR today- No acute pulmonary infiltrates. Cardiac History of orthostasis History of CAD History dyslipidemia History of hypertension Continue Midodrine 5 mg BID. Start Levophed Monitor HR and BP keep MAP>65mmHg. Serial lactic acid monitoring Continue with fluid resuscitation- given 3L crystalloids, will give additional 1L NS and continue with NS @125ml/hr Place on stress dose steroids- HC 100mg IV Q8, hold PO prednisone. GI: Chronic moderate protein energy malnutrition Dysphagia Status post PEG Internal hemorrhoids Gastroesophageal reflux disease - TF Jevity 1.5 @ 60ml/hr on hold for now, on Reglan 5mg Q8 PRN for high residuals. - On Prevacid 30 mg per PEG tube daily for GERD - 11/25 KUB abdomen: Nonobstructive bowel gas pattern. Stable position of gastrostomy tube. FEN/Renal: Nonobstructing left renal calculus - Monitor renal function, I/O's. electrolytes replacement per protocol. -Continue with IVF ID: Aspiration pneumonia Ceel UTI 11/13 C-diff PCR positive 11/18 Sputum: Pseudomonas 10/19 Sputum: Pseudomonas- likely colonized 10/19 urine cx: Yeast species 10/12 BC: NGTD 10/11 BC: NGTD 10/11 Urine cx: C. Tropicalis 10/11 Sputum: ESBL Klebsiella and Pseudomonas pneumonia 10/10 Urine: C. Tropicalis 09/21 Urine cx: Pseudomonas ? colonized 09/19 Sputum cx: Pseudomonas, Kleb pneumonia ESBL pos Candiduria (cele tropicalis urine cx 08/17) ESBL positive Klebsiella/Pseudomonas pneumonia Stenotrophomonas in sputum 08/17 MRSA colonization Sepsis UTI Klebsiella ESBL positive (has been treated) Continue with abx ( Zosyn, Levaquin) give Vanco 1gram x1 monitor for signs of infections ( Fever, WBC) Reconsult ID, follow up on cxs, recheck C-diff PCR CXR 11/27 : no acute changes. Endo: On SSI ( medium) with accuchecks Q6. Heme Normocytic Anemia - Monitor CBC MSK Bilateral lower extremity Contractures Stage III sacral decubitus present on admission - Wound care and PT on case Prophylaxis - GI - Prevacid - DVT - SCDs/ Lovenox. ACCESS: PIVs Will place central line for hemodynamic monitoring CCT 30 mins Antonio Carr MD Nov 28, 2015 10:42
--- NOTE | 2015-11-28 11:31 | HHI.IDPN ---
Subjective Subjective Remarks Chart reviewed. Reconsult for evaluation of septic shock. Saúl is well-known to the ID service. Has been treated for multiple infections including pneumonia and UTI. Was last seen around November 15 for evaluation of positive C. difficile toxin. On that evaluation it was felt that he did not need any treatment. His stools were pasty at that time. He was on oral Vanco and that was discontinued, and patient received only 4 doses. On November 18 there was a sputum culture that had Pseudomonas. I don't think it was treated. During that time he was having a lot of secretions. His tracheal secretions improved. On November 25 patient vomited tube feedings. He subsequently developed more respiratory problem, became hypotensive, and transferred to the intensive care unit. He is normal. He is not febrile. He is currently on Levophed. His WBC had gone up. Patient currently on tube feedings. He remains on T piece. He is currently on Zosyn, Levaquin, and vancomycin. Infectious disease consultation requested to evaluate the patient with sepsis and shock. Antibiotics Vanco IV Zosyn Levaquin Lines Peripheral IV with no e/o infection Past Medical History reviewed Allergies: Coded Allergies: *MDRO Multi-Drug Resistant Organism (Verified Adverse Reaction, Unknown, ) ESBL E. coli (urine) - 02/19/2015; ESBL K. 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 Vital Signs Date Time Temp Pulse Resp B/P Pulse Ox O2 Delivery O2 Flow Rate FiO2 11/28/15 10:01 99 T-piece 35 11/28/15 04:26 98 T-piece 7.00 70 11/28/15 04:00 102 34 77/48 96 11/28/15 00:15 98 8.00 98 11/28/15 00:15 104 40 110/71 96 11/28/15 00:10 108 38 88/73 100 11/27/15 23:45 99.1 108 32 82/45 63 11/27/15 21:00 92 T-piece 7.00 35 11/27/15 21:00 T-Piece 5.00 35 11/27/15 20:00 96.1 110 22 127/73 90 11/27/15 16:00 95.5 91 20 142/90 92 11/27/15 12:00 96.4 66 22 94/52 97 11/27/15 11/27/15 11/28/15 14:59 22:59 06:59 Intake Total 400 ml 0 ml 0 ml Output Total 125 ml 2000 ml Balance 400 ml -125 ml -2000 ml Intake Oral 0 ml 0 ml 0 ml Other 400 ml Output Urine Total 125 ml 2000 ml # Bowel Movements 7 . Laboratory Tests Test 11/26/15 11/28/15 11/28/15 13:20 00:50 04:50 White Blood Count 15.4 TH/MM3 12.3 TH/MM3 Red Blood Count 5.03 MIL/MM3 3.90 MIL/MM3 Hemoglobin 13.8 GM/DL 10.6 GM/DL 9.5 GM/DL Hematocrit 42.5 % 33.1 % 28.7 % Mean Corpuscular Volume 84.5 FL 84.8 FL Mean Corpuscular Hemoglobin 27.4 PG 27.3 PG Mean Corpuscular Hemoglobin 32.5 % 32.1 % Concent Red Cell Distribution Width 16.7 % 16.0 % Platelet Count 254 TH/MM3 165 TH/MM3 Mean Platelet Volume 9.4 FL 9.7 FL Neutrophils (%) (Auto) 91.3 % 81.7 % Lymphocytes (%) (Auto) 2.6 % 10.1 % Monocytes (%) (Auto) 5.6 % 7.5 % Eosinophils (%) (Auto) 0.1 % 0.4 % Basophils (%) (Auto) 0.4 % 0.3 % Neutrophils # (Auto) 14.1 TH/MM3 10.0 TH/MM3 Lymphocytes # (Auto) 0.4 TH/MM3 1.2 TH/MM3 Monocytes # (Auto) 0.9 TH/MM3 0.9 TH/MM3 Eosinophils # (Auto) 0.0 TH/MM3 0.1 TH/MM3 Basophils # (Auto) 0.1 TH/MM3 0.0 TH/MM3 CBC Comment DIFF FINAL DIFF FINAL Differential Comment Laboratory Tests Test 11/26/15 11/26/15 11/28/15 11/28/15 13:20 17:50 00:50 04:50 Sodium Level 137 MEQ/L 144 MEQ/L Potassium Level 4.2 MEQ/L 3.5 MEQ/L Chloride Level 97 MEQ/L 108 MEQ/L Carbon Dioxide Level 31.8 MEQ/L 26.2 MEQ/L Anion Gap 8 MEQ/L 10 MEQ/L Blood Urea Nitrogen 25 MG/DL 16 MG/DL Creatinine 0.93 MG/DL 0.56 MG/DL Estimat Glomerular Filtration 85 ML/MIN 153 ML/MIN Rate Random Glucose 201 MG/DL 116 MG/DL Lactic Acid Level 3.6 mmol/L 3.8 mmol/L 2.8 mmol/L 7.1 mmol/L Calcium Level 9.5 MG/DL 9.1 MG/DL B-Type Natriuretic Peptide 9 PG/ML Total Bilirubin 0.4 MG/DL Aspartate Amino Transf 24 U/L (AST/SGOT) Alanine Aminotransferase 24 U/L (ALT/SGPT) Alkaline Phosphatase 50 U/L Total Protein 5.9 GM/DL Albumin 2.4 GM/DL Microbiology Date/Time Procedure Status Source Growth 11/26/15 13:20 Aerobic Blood Culture - Preliminary Resulted Blood Peripheral NO GROWTH IN 1 DAY 11/26/15 13:20 Anaerobic Blood Culture - Preliminary Resulted Blood Peripheral NO GROWTH IN 1 DAY 11/26/15 13:25 Aerobic Blood Culture - Preliminary Resulted Blood Peripheral NO GROWTH IN 1 DAY 11/26/15 13:25 Anaerobic Blood Culture - Preliminary Resulted Blood Peripheral NO GROWTH IN 1 DAY 11/27/15 15:30 Urine Culture Received Urine Catheterized Urine Pending 11/27/15 18:00 Gram Stain - Final Resulted Sputum Endotracheal 11/27/15 18:00 Sputum Culture Resulted Sputum Endotracheal Pending 11/28/15 00:45 Aerobic Blood Culture Received Blood Line Pending 11/28/15 00:45 Anaerobic Blood Culture Received Blood Line Pending 11/28/15 00:50 Aerobic Blood Culture Received Blood Line Pending 11/28/15 00:50 Anaerobic Blood Culture Received Blood Line Pending Imaging Last Impressions Chest X-Ray 11/28/15 0000 Signed Impressions: Service Date/Time: Saturday, November 28, 2015 00:21 - CONCLUSION: No acute cardiopulmonary disease. Eugene Schmid MD Abdomen X-Ray 11/26/15 0000 Signed Impressions: Service Date/Time: November 12:34 - CONCLUSION: 1. Nonobstructive bowel gas pattern. 2. Stable position of gastrostomy tube. Multiple surgical screws secure the proximal left femur. 3. No obvious pneumoperitoneum on the single projection provided. Scott Goode MD Upper Extremity Ultrasound 10/13/15 0000 Signed Impressions: Service Date/Time: Tuesday, October 13, 2015 09:51 - CONCLUSION: 1. No evidence of deep venous thrombosis. John Anderson MD Renal Ultrasound 10/07/15 0000 Signed Impressions: Service Date/Time: Wednesday, October 07, 2015 18:29 - CONCLUSION: 1. No acute findings. 3.6 cm left renal cyst. Putnam catheter in bladder. Amaury Ellsworth MD Tunnelled Chest Tube Removal 08/05/15 1100 Signed Impressions: Service Date/Time: Wednesday, August 05, 2015 11:00 - CONCLUSION: Uncomplicated chest tube removal. Blaine Jackson MD Chest Tube Change 07/31/15 0000 Signed Impressions: Service Date/Time: Friday, July 31, 2015 14:34 - CONCLUSION: Uncomplicated reposition of previously placed chest tube as above. Blaine Jackson MD Chest Tube Insertion 07/30/15 0000 Signed Impressions: Service Date/Time: July 14:50 - CONCLUSION: Uncomplicated chest tube placement as above. Blaine Jackson MD Catheter Change 07/27/15 0000 Signed Impressions: Service Date/Time: Monday, July 27, 2015 14:43 - CONCLUSION: Uncomplicated gastrostomy tube exchange as above. Blaine Jackson MD Chest CT 07/11/15 0000 Signed Impressions: Service Date/Time: Saturday, July 11, 2015 09:49 - CONCLUSION: Scattered patchy densities significantly improved from previous study. Tiny anterior right basilar pneumothorax. Right-sided chest tube in good position. Néstor Matamoros MD Head CT 06/18/151902 Signed Impressions: Service Date/Time: June 19:31 - CONCLUSION: Diffuse atrophy unchanged. No acute intracranial findings. Kush Briscoe MD Abdomen/Pelvis CT 06/18/151902 Signed Impressions: Service Date/Time: June 19:36 - CONCLUSION: 1. Chronic nonspecific urinary bladder wall thickening. Bladder collapsed with Putnam catheter in place. 2. Chronic bilateral mid to lower lung zone groundglass opacity. 3. Nonobstructing left renal calculus. 4. Distended rectum. Kush Briscoe MD Physical Exam GENERAL: Eyes open, ?focusing, not interacting, not SOB, on T-piece, looks diaohoretic SKIN: Cool and moist. No generalized rash. No cyanosis. HEENT: Ozone conjunctivae, no icterus, moist mucosa. NECK: Trach site looks ok. Neck is supple RESPIRATORY: decreased at the bases. GASTROINTESTINAL: Abdomen soft, not distended. He did some grimacing during palpation, but no guarding. PEG site looks okay. No hepatosplenomegaly MUSCULOSKELETAL: No cyanosis No pedal edema. Contracted all 4 extremities. NEUROLOGICAL: Eyes open, Extremities contracted Peripheral IV line sites with no evidence of infection. ; Putnam in place, urine looks clear Assessment & Plan Remarks IMPRESSION Septic shock, preceding events seem to be vomiting, ?aspiration, CXR negative however - UA ok - last sputum 11/18 PSAE, not treated History of PSAE ESBL cath associated UTI. S/P Rx Leukocytosis, reactive due to current problem Previous C diff (+), no treated, improved - has had freq BM reported - will repeat if persistent and liquid Chronic respiratory failure on trach PSAE and ESBL Kleb in sputum in recent past. Chronic encephalopathy with underlying diagnosis of advanced dementia as well as advanced Parkinson's disease. Status post trach Status post gastrostomy tube with no evidence of infection. Stage II sacral decubitus ulcer present on admission. Recommendations Follow new C/S Continue current Abx: Zosyn, Levaquin, and to get one dose of Vanco Monitor progress Will adjust Abx once C/S available I will follow with you Bhavna Weeks MD Nov 28, 2015 11:31
[2015-11-28] MEDS ORDERED: VANCOMYCIN INJ 1,000 MG in SODIUM CHLOR 0.9% 250 ML INJ 250 ML IV ONE (12:00)
[2015-11-28 12:34] LABS: AUTOMATED NEUTROPHIL # 9.7 TH/MM3 (1.8-7.7); BASOPHIL % 0.3 % (0.0-2.0); EOSINOPHIL # 0.1 TH/MM3 (0-0.4); EOSINOPHIL % 0.6 % (0.0-4.0); HEMATOCRIT 33.8 % (39.0-51.0); HEMO FLAGS DIFF FINAL; LYMPH % 5.4 % (9.0-44.0); LYMPHOCYTE # 0.6 TH/MM3 (1.0-4.8); MEAN CELL VOLUME 86.3 FL (80.0-100.0); MEAN CORPUSCULAR HGB CONC 32.4 % (32.0-36.0); MONO % 7.8 % (0.0-8.0); NEUT % 85.9 % (16.0-70.0); PLATELET COUNT 175 TH/MM3 (150-450); RED BLOOD COUNT 3.91 MIL/MM3 (4.50-5.90); RED CELL DISTRIBUTION WIDTH 15.8 % (11.6-17.2); WHITE BLOOD COUNT 11.3 TH/MM3 (4.0-11.0)
[2015-11-28] MEDS: SODIUM CHLOR 0.9% 1000 ML INJ 1,000 ML IV SCH ×2 (12:51→17:44)
[2015-11-28 12:52] LABS: INTERNATIONAL NORMALIZED RATIO 1.1 RATIO; PROTHROMBIN TIME - PATIENT 11.8 SEC (9.8-11.4)
[2015-11-28] MEDS: HYDROCORTISONE SOD SUCCINATE 100 MG VIAL IV PUSH SCH ×3 (12:54→20:21)
[2015-11-28 12:57] LABS: BICARBONATE 23.9 MEQ/L (21.0-32.0); MAGNESIUM 1.7 MG/DL (1.5-2.5)
[2015-11-28 13:02] LABS: POTASSIUM 2.7 MEQ/L (3.5-5.1)
[2015-11-28] MEDS ORDERED: POTASSIUM CHLOR 20 MEQ PREMIX 100 ML IV PRN (13:30)
[2015-11-28] MEDS ORDERED: MAGNESIUM SULFATE INJ 4 GM in SODIUM CHLORIDE 0.9% INJ 92 ML IV PRN (13:30)
[2015-11-28] MEDS ORDERED: SODIUM PHOSPHATE INJ 30 MMOL in SODIUM CHLOR 0.9% 250 ML INJ 240 ML IV PRN (13:30)
[2015-11-28] MEDS ORDERED: POTASSIUM PHOSPHATE MONOBASIC 500 MG TAB PO/TUBE PRN (13:30)
[2015-11-28] MEDS ORDERED: POTASSIUM CHLOR 40 MEQ PREMIX 100 ML IV PRN ×2 (13:30)
[2015-11-28] MEDS ORDERED: POTASSIUM PHOSPHATE MONOBASIC 500 MG TAB PO PRN (13:30)
[2015-11-28] MEDS ORDERED: POTASSIUM CL 40 MEQ/30 ML LIQ UDC PO/TUBE PRN ×2 (13:30)
[2015-11-28] MEDS ORDERED: MAGNESIUM SULFATE INJ 2 GM in SODIUM CHLORIDE 0.9% INJ 96 ML IV PRN (13:30)
[2015-11-28] MEDS ORDERED: MAGNESIUM OXIDE 400 MG TAB PO PRN (13:30)
[2015-11-28] MEDS: LEVOFLOXACIN 750 MG PREMIX INJ 150 ML IV SCH (15:25)
[2015-11-28] MEDS: POTASSIUM CHLOR 20 MEQ PREMIX 100 ML IV PRN ×4 (15:26→23:40)
--- NOTE | 2015-11-28 16:58 | HHI.PR ---
Subjective Remarks 54 YOWM with ChRF,Trach, multiple uti No fever Gets anxious. Mod amount of trach secretions. Tolerating T-Bar Tolerates TF Tr back to [facility] with sepsis, hypotension Required Levophed briefly Objective Vital Signs Vital Signs Date Time Temp Pulse Resp B/P Pulse Ox O2 Delivery O2 Flow Rate FiO2 11/28/15 16:00 105 11/28/15 16:00 97.7 105 21 126/92 0 11/28/15 16:00 99 T-Piece 28 11/28/15 12:00 97.3 90 24 111/50 99 11/28/15 12:00 99 T-Piece 28 11/28/15 10:01 99 T-piece 35 11/28/15 10:00 82 11/28/15 08:00 77 11/28/15 08:00 99 T-Piece 28 11/28/15 08:00 97.6 77 22 78/50 99 Manual Cuff/Auscultation 11/28/15 04:26 98 T-piece 7.00 70 11/28/15 04:00 102 34 77/48 96 11/28/15 00:15 98 8.00 98 11/28/15 00:15 104 40 110/71 96 11/28/15 00:10 108 38 88/73 100 11/27/15 23:45 99.1 108 32 82/45 63 11/27/15 21:00 92 T-piece 7.00 35 11/27/15 21:00 T-Piece 5.00 35 11/27/15 20:00 96.1 110 22 127/73 90 I/O 11/27/15 11/27/15 11/27/15 11/28/15 11/28/15 11/28/15 07:00 15:00 23:00 07:00 15:00 23:00 Intake Total 400 ml 0 ml 0 ml 3500 ml Output Total 125 ml 2000 ml 1000 ml Balance 400 ml -125 ml -2000 ml 2500 ml Intake Oral 0 ml 0 ml 0 ml IV Total 3500 ml Other 400 ml Output Urine Total 125 ml 2000 ml 1000 ml # Bowel Movements 7 1 Result Diagram: 11/28/15 1220 11/28/15 1220 Objective Remarks GENERAL: MBMN male on Vent. SKIN: Warm and dry. HEAD: Normocephalic. EYES: No scleral icterus. No injection or drainage. NECK: Supple, trachea midline. No JVD or lymphadenopathy. has trach CARDIOVASCULAR: Regular rate and rhythm without murmurs, gallops, or rubs. RESPIRATORY: Breath sounds equal bilaterally. No accessory muscle use. GASTROINTESTINAL: Abdomen soft, non-tender, nondistended. PEG tube in place MUSCULOSKELETAL: No cyanosis, or edema. BACK: Nontender without obvious deformity. No CVA tenderness. A/P Assessment and Plan RF, On Trach collar S/P Trach Parkinson's diasease Dementia Aspiration Sepsis Hypotension PLAN: TF Cont Trach collar Trach care Cont Abx Levaquin, Hydrocortisone IV Levophed to keep MAP >65 Severiano Ag MD Nov 28, 2015 16:58
--- NOTE | 2015-11-28 17:37 | PD.PROCEDR ---
Central Line Procedure REASON FOR PROCEDURE Central venous access PROCEDURE PERFORMED Central line placement: Right subclavian CVP CONSENT Procedure was done emergently for hemodynamic monitoring- Patient is on Levophed ANESTHESIA Local injection of 1% Lidocaine DESCRIPTION OF THE PROCEDURE The patient was placed in supine, mild Trendelenburg position. The area was exposed and cleansed with ChloraPrep, times two. Large sterile drape was used to cover the patient, with the site exposed, under sterile conditions including cap, face mask, sterile gown, and sterile gloves. On single attempt, the introducer needle was inserted with negative pressure in syringe and venous flash was obtained. The guide wire was then advanced without any restriction and the needle was removed. The dilator was used without any complications. Using Seldinger technique the catheter was advanced over the guide wire to a depth of 20 centimeters. The guide wire was removed. All ports were aspirated with dark venous blood return and flushed easily with sterile saline. All ports were capped. Antibiotic disc was placed around central line at puncture site. The central line was secured to the skin with two interrupted 2.0 silk sutures. The area was bandaged with sterile see-through central line bandage. RADIOLOGICAL DATA CXR ordered to verify line placement COMPLICATIONS: No apparent complications ESTIMATED BLOOD LOSS: Less than 1 cc. Antonio Carr MD Nov 28, 2015 17:37
--- NOTE | 2015-11-28 17:49 | RADRPT ---
EXAM DATE/TIME: 11/28/2015 17:20 [facility] COMPARISON: No previous studies available for comparison. INDICATIONS : Central line placement. MEDICAL HISTORY : Hypertension. Gastroesophageal reflux disease. Diabetes mellitus type II . SURGICAL HISTORY : Tracheostomy. ENCOUNTER: Initial ACUITY: 1 day PAIN SCORE: Non-responsive. LOCATION: Bilateral chest FINDINGS: A single view of the chest demonstrates the right subclavian central line and tracheostomy tube are i n good position. There is bilateral perihilar vascular congestion. There is no visible pneumothorax . CONCLUSION: Pulmonary vascular congestion. Central line is in good position. Nghia Mason MD on November 28, 2015 at 17:47 Board Certified Radiologist. This report was verified electronically.
[2015-11-28] MEDS: ACETAMINOPHEN/HYDROcodone 325 MG/5 MG TAB PO PRN (20:22)
[2015-11-29] VITALS (14 sets, daily range): BP systolic 83–108; BP diastolic 58–74; PULSE 66–100; RESP 14–29; TEMP 97.1–97.6; O2SAT 90–100
[2015-11-29] MEDS: MORPHINE SULFATE 4 MG/ML INJ IV PUSH PRN ×4 (01:23→21:44)
[2015-11-29] MEDS: FREE WATER G-TUBE SCH ×6 (04:00→23:13)
[2015-11-29 04:56] LABS: BASOPHIL % 0.3 % (0.0-2.0); HEMATOCRIT 28.5 % (39.0-51.0); HEMO FLAGS DIFF FINAL; LYMPH % 3.7 % (9.0-44.0); LYMPHOCYTE # 0.3 TH/MM3 (1.0-4.8); MEAN CORPUSCULAR HEMOGLOBIN 28.1 PG (27.0-34.0); MEAN CORPUSCULAR HGB CONC 32.7 % (32.0-36.0); MONO % 3.6 % (0.0-8.0); NEUT % 92.4 % (16.0-70.0); PLATELET COUNT 163 TH/MM3 (150-450); RED BLOOD COUNT 3.32 MIL/MM3 (4.50-5.90); WHITE BLOOD COUNT 8.7 TH/MM3 (4.0-11.0)
[2015-11-29 05:05] LABS: BICARBONATE 24.4 MEQ/L (21.0-32.0); POTASSIUM 4.4 MEQ/L (3.5-5.1)
[2015-11-29] MEDS: HYDROCORTISONE SOD SUCCINATE 100 MG VIAL IV PUSH SCH ×4 (05:09→23:13)
[2015-11-29] MEDS: CARBIDOPA/LEVODOPA 25 MG/100 MG TAB GT SCH ×3 (05:09→20:22)
[2015-11-29] MEDS: PIPERACIL-TAZO 4.5 GM PREMIX 100 ML IV SCH ×4 (05:09→23:13)
[2015-11-29] MEDS: clonazePAM 1 MG TAB PO SCH ×3 (05:10→20:22)
[2015-11-29] MEDS: INSULIN NovoLIN REGULAR SUPPLEMENTAL SCALE SQ SCH ×4 (05:25→23:13)
--- NOTE | 2015-11-29 07:14 | HHI.CCPN ---
Subjective Remarks/Hospital Course 06/17: Pt is a 54 yr man with multiple medical problems including Parkinson's disease, advanced dementia, hyponatremia, anxiety, pneumonia, GERD, cognitive disorder, and multidrug resistant UTI- ESBL02/19/15 , who resides in a halfway. Pt by report was found by staff in halfway to be less alert and having respiratory difficultly and fevers. Pt was brought to ED adn placed on ventilator. His workup was inclusive of labs, chest xray and ct head and abd/pelvis. WBC 16.4, +UTI, lactic acid 4, troponin ,0.02, BUN/ cre 18/ 0.76. CT head 06/18/15: diffuse atrophy unchanged. No acute intracranial findings ct abd/ pelvis with IV contrast: 06/18/15 Conclusion: 1. Chronic nonspecific urinary bladder wall thickening. Bladder collapsed with Putnam catheter in place. 2.Chronic bilateral mid to lower zone groundglass opacity. 3. Nonobstructing left renal calculus. 4. Distended rectum Pt admitted and fluid and abx ordered. 06/18: Drowsy, easily arousable. On mechanical ventilation via tracheostomy. Tachypneic. Resting tremor noted. 06/19: Drowsy, arousable. On mechanical ventilation via tracheostomy. 06/20: Drowsy, arousable. Remains on mechanical ventilation via tracheostomy. We'll repeat blood cultures, UA and urine cultures. Fluconazole IV added in view of yeast in urine. 07/06: Reconsulted as patient return to the ventilator on a right ventricular due to tachypnea. Low-grade temperatures. Tolerating tube feeding. Extremity encephalopathic demented patient with difficult neurological examination. 07/07: Status post chest tube placement by IR for right pneumothorax 07/06. Afebrile. Tolerating tube feeds. Positive BM. Currently tachypneic on the ventilator. Does not appear to be any acute distress. 07/08: Afebrile. Tolerating tube feeding. He is comfortable currently on CPAP trials 11/10. Positive BM. 07/09: Afebrile. Tolerating tube feeding. Appears comfortable on T bar. Positive BM. 07/10: Afebrile. Eyes are open. Remained on T piece overnight. Tolerating tube feeding. 07/11: MAXIMUM TEMPERATURE 100. Currently 98.6. Eyes are open. On ACV overnight secondary to "tachypnea and sweating". Switching back to PSV trials today. Goal is T piece during daytime, CPAP at night. 07/12: No acute events overnight. On PSV 15/5 -attempt TP up to 6 hours today. No pneumothorax on chest x-ray 07/13: Placed back on full ventilator support for tachypnea. Otherwise clinically unchanged. No fever today 07/14: Patient was on T piece yesterday evening, placed back on PSV overnight, patient mechanical ventilation this morning. Patient appears to be struggling with mechanical ventilation. Patient placed back on PSV with improvement 07/15: Patient placed back on mechanical ventilation last evening due to respiratory rate. It was indicated patient was tachypnea can the 40s. Patient on mechanical ventilation this time with respiration rate mid 20s. Chest tube still in place without any output, chest x-ray still indicating resolution of pneumothorax. 07/16: Patient seen and examined today. Patient placed back on mechanical ventilation overnight due to respiratory rate. Even on mechanical ventilation patient has respiration rate in the 30s. Patient afebrile, blood pressure stable. Continue vent weaning 07/17: Patient seen and examined. Currently afebrile. Currently on CPAP 15/5 @ 40%. Patient is awake with open mouth resting in bed in no apparent acute distress. Tolerating tube feeding. 2 bowel movements. 07/18: No neurological changes. Afebrile. 2 bowel moments. Tolerating tube feeding. We'll attempt TP trials today. On CPAP since 07/15 07/19 No events overnight. On CPAP with PS: 10, PEEP: 5 and FIO2 35%. Afebrile. On no sedation. 07/20 No events overnight. Tolerating CPAP. Afebrile. 07/21: Remains on CPAP. Attempt T piece trial today. Afebrile. One bowel movement. Tolerating tube feeding. 07/22: Afebrile. Positive BM. Tolerating tube feeding. Noted switched tracheostomy to #6 Shiley cuffed fenestrated. Neurologically unchanged 07/23: Afebrile. Positive BM. Tolerating tube feeding. Questionable leak in exchange trach. Place back on a rate/ACV overnight. Insufflated seems to be doing better at the present time. Will check chest x-ray. Possible he might need #6 XLT versus replacement of chronic #8 Shiley. 07/24: Tolerating TP today, RR in low 30s patient appears comfortable. No acute events overnight 07/25: Remains off the ventilator more than 36 hours now. Intermittently tachypneic probably breathing. Chest x-ray was clear yesterday. No acute events reported overnight. PEG not functioning per RN 08/02: Patient was transferred back to critical care service due to continuing ventilator management, tachypnea. Patient clinical status with no significant change. Patient with low-grade fever 100.2, 08/03: Patient seen and examined today. No significant change in clinical status. Patient still with chronic tachypnea. Patient afebrile now. 08/04: Patient seen and examined today. No change in clinical status. Patient still continues to have chronic tachypnea. Patient afebrile. Continue vent weaning 08/05: Patient seen and examined today. Patient had chest tube removed yesterday , chest x-ray shows redevelopment of pneumothorax. Chest tube replaced. Otherwise, patient still on ventilator with tachypnea. Afebrile 08/06: Patient seen and examined today. Patient went to have chest tube placed, repeat chest x-ray did not indicate any pneumothorax. No overnight events. We' ll need to pursue LTAC placement 08/07 No events overnight. On ventilator via trach. Afebrile. 08/08 Patient tolerated CPAP x4 hrs yesterday. Afebrile. On no sedation. 08/09 No events overnight. Tolerated CPAP x 12 hrs yesterday. Afebrile. 08/10 Patient tolerated TP's x 12 hrs yesterday back on ACV overnight. 08/11 No events overnight, currently on TP's with 40% FIO2. Afebrile. 08/12 On CPAP 10/5. Tolerated Tpiece 3 hours earlier today. Afebrile. 08/13 On CPAP 10/5. Not tolerating CPAP as well over last few days and RT notes challenge with suctioning respiratory secretions adequately. Discussing with healthcare proxy regarding exchange trach to 8.0. 08/14 Nursing and RT staff having continued difficulty suctioning respiratory secretions via 6.0 tracheostomy. KAREN Garcia did not consent to stoma dilation and trach upsize yesterday but said she would call back and let me know but no return call. Contacted again today and left a message. Afebrile. On CPAP 10/5. Brow furrowing on exam, appears to be in pain but pain not localizable. Tolerating tube feeds, had BM yesterday 08/15 Not tolerating CPAP today. Contacted healthcare surrogate again and discussed need for trach change. She consented and trach was dilated and up- sized to 8.0 Distal XLT to facilitate pulmonary toilet and to address volume leak. 08/16 No events overnight. Remains on ventilator via trach. Afebrile. Tolerating TF. 08/17 No events overnight. Afebrile. 08/18 Patient tolerated CPAP x 4 hrs yesterday. Afebrile.On ventilator via trach. 08/19 On CPAP 25/06. Temp max 99.3 08/20 Stenotrophomonas in sputum, started on Levaquin per ID. Temp max 99.8. On CPAP 20/09. Tube feeds were held because PEG was clogged but now PEG is functioning. 08/21 No events overnight. Afebrile. Remains on ventilator via trach. Has been tolerating CPAP trials for last 2 days. 08/22 No events overnight. Afebrile , Has been on CPAP all night with PS: 20, PEEP; 5 and FIO2 35%. 08/23 No events overnight. Remains on CPAP, T:99.9 08/24 No events overnight. On CPAP PS 10, PEEP; 5 and FIO2 35% overnight. Afebrile. 08/25 No events overnight. Afebrile. On CPAP overnight with PS 8, PEEP: 5 and FIO2 35%, afebrile. Tolerating TF. 08/26 Tolerating Tpiece. 08/27 Tolerated Tpiece yesterday and overnight. However this evening desaturated and was placed back on CPAP. Dr. Mistry attempted to update daughter Radha Foreman and discuss his overall poor prognosis for recovery, but call got disconnected midway through call and could not reach her back 08/28 On PSV 10/5 40% today. Afebrile. 08/29 On CPAP overnight. Now on Tpiece 70% per pulmonology. Increased yellow secretions noted. Temp max 99.1 Nursing staff expresses concern that he appears uncomfortable during all nursing care. Called elsa Garcia to update , no answer, left message to call me. 08/30: On CPAP overnight. Currently on T piece at 45%. Currently afebrile. Positive BM. Tolerating tube feeding. 08/31: On CPAP overnight. Will return T piece at 35%. MAXIMUM TEMPERATURE 99.6. 5 bowel movements. Tolerating tube feeds. Neurological examination unchanged. 09/01: Tmax 99.2. Currently afebrile. Currently in TPs at 35%. 7 bowel movement overnight. Tolerating tube feeding. Subjective: 09/19: Ciarra called secondary to aspiration on Gen. medical floor. Transfer to ICU and placed on mechanical ventilation. ABG shows CO2 retention. Etc. revealed no acute cardiac 20 finds however copious message to feed suctioned from trach tube 09/20 No events overnight. Afebrile. On ACV with RR 16, TV 500, PEEP: 5 and FIO2 40%. 09/21 No events overnight. Afebrile. 09/22 No events overnight. Tolerated CPAP all day yesterday with PS 12, PEEP:5 and FIO2 35%. Afebrile. 09/23 No events overnight. On no sedation Tolerated CPAP yesterday. Had T:100.3 last night. 09/24 Patient tolerated TP's x 6 hrs yesterday On CPAP 12/5 with 35% FIO2 overnight. Afebrile. 09/25 No events overnight. On CPAP overnight and TP's during day. Tolerating tube feeds. 10/11 Reconsult: Ciarra was called as patient was found hypotensive with SBP 80' s and tube feeds coming from trach site. Patient is receiving 1L bolus NS and STAT CXR showed mild pulm edema. On arrival to ICU patient was connected to ventilator ( On ACV RR 16, TV 500, PEEP:5 and FIO2 40% with sats 95%. Current BP 125/91 , P:81 10/12 Patient remains on ventilator overnight. Borderline low BP with MAP ranges 67-72. Afebrile. On no sedation. 10/13 Patient is on ventilator via trach, afebrile, WBC trending down. Patient was hypotensive yesterday responded to fluid resuscitation not on any pressors. 10/14: No acute events overnight. WBC count has normalized. Will start SBT as tolerated. CXR in am 10/15 No acute events overnight. Phosphorus low needs replacement. Otherwise neuro exam remains unchanged. remains on CPAP 10/16 Patient remains on ventilator via trach. On no sedation. Afebrile. 10/17 No acute events overnight. On ventilator via trach. Afebrile. 10/18 Tolerates CPAP, but unable to wean further. Otherwise no acute events overnight, remains afebrile 10/19 Patient is on ventilator via trach, UO 175ml in last 7 hrs. Afebrile. Tolerated CPAP x 6 hrs yesterday. 10/20 No acute events overnight. Tolerated CPAP for several hrs yesterday. Afebrile. UO better ( 1275ml in 24hrs). Given 1L NS total yesterday for decrease UO. 10/21 Patient is on ventilator via trach tolerated CPAP for most of day yesterday. Afebrile. Tolerating tube feeds. 10/22 No acute events overnight. Patient was on CPAP all day yesterday. Afebrile. 10/23 Patient tolerated all day yesterday. On ventilator via trach. Afebrile. 10/24 Patient remains on ventilator via trach. Afebrile. 10/25 Remains on vent on PSV 15/5. No acute events overnight. WBC slightly increased 10/26 PSV reduced to 10/5. Required AC/VC support yesterday as patient became tachypneic. No other changes 10/27 no acute changes overnight. Tolerating 10 over 5 PSV. WBC count has normalized, T piece today 10/28: No acute events overnight. Did not tolerate T piece trial yesterday. Tolerated CPAP. No fever 10/29: No acute events reported. Currently on 12 over 5 pressure support, reduced to 8/5. No fever 10/30 No acute events overnight. On CPAP with PS 10, PEEP: 5 and FIO2 35% overnight. Afebrile. 10/31: Remains on T piece since yesterday. 11/01: Was on T piece during day and C Pap at night. 11/01: Remains on T piece since yesterday morning. 11/27 Reconsult for sepsis, hypotension. Patient became hypotensive with SBP 80's given 3L crystalloids. T: 96.1 last night. Lactic acid 7.1 from 2.8. CXR this morning showed no acute disease. Remains unresponsive on TP's with 35% FIO2. 11/28 Patient is off Levophed, on TP's with 28 % FIO2. Remains unresponsive. Lactic acid resolved 1.4 last night. Objective - Vital Signs Date Time Temp Pulse Resp B/P Pulse Ox O2 Delivery O2 Flow Rate FiO2 11/29/15 06:00 86 11/29/15 04:00 97.6 24 93/58 90 11/29/15 04:00 T-Piece 28 11/28/15 20:24 8.00 Intake and Output 11/28/15 11/28/15 11/29/15 08:00 16:00 00:00 Intake Total 0 ml 3500 ml 1930 ml Output Total 2000 ml 1000 ml 400 ml Balance -2000 ml 2500 ml 1530 ml Result Diagram: 11/29/15 0400 11/29/15 0400 Other Results Laboratory Tests Test 11/28/15 11/28/15 11/28/15 11/29/15 09:30 12:20 19:58 04:00 Blood Type A POSITIVE Antibody Screen NEGATIVE White Blood Count 11.3 TH/MM3 8.7 TH/MM3 Red Blood Count 3.91 MIL/MM3 3.32 MIL/MM3 Hemoglobin 11.0 GM/DL 9.3 GM/DL Hematocrit 33.8 % 28.5 % Mean Corpuscular Volume 86.3 FL 86.0 FL Mean Corpuscular Hemoglobin 28.0 PG 28.1 PG Mean Corpuscular Hemoglobin 32.4 % 32.7 % Concent Red Cell Distribution Width 15.8 % 16.0 % Platelet Count 175 TH/MM3 163 TH/MM3 Mean Platelet Volume 9.5 FL 9.7 FL Neutrophils (%) (Auto) 85.9 % 92.4 % Lymphocytes (%) (Auto) 5.4 % 3.7 % Monocytes (%) (Auto) 7.8 % 3.6 % Eosinophils (%) (Auto) 0.6 % 0.0 % Basophils (%) (Auto) 0.3 % 0.3 % Neutrophils # (Auto) 9.7 TH/MM3 8.0 TH/MM3 Lymphocytes # (Auto) 0.6 TH/MM3 0.3 TH/MM3 Monocytes # (Auto) 0.9 TH/MM3 0.3 TH/MM3 Eosinophils # (Auto) 0.1 TH/MM3 0.0 TH/MM3 Basophils # (Auto) 0.0 TH/MM3 0.0 TH/MM3 CBC Comment DIFF FINAL DIFF FINAL Differential Comment Prothrombin Time 11.8 SEC Prothromb Time International 1.1 RATIO Ratio Sodium Level 143 MEQ/L 146 MEQ/L Potassium Level 2.7 MEQ/L 4.4 MEQ/L Chloride Level 109 MEQ/L 114 MEQ/L Carbon Dioxide Level 23.9 MEQ/L 24.4 MEQ/L Anion Gap 10 MEQ/L 8 MEQ/L Blood Urea Nitrogen 11 MG/DL 10 MG/DL Creatinine 0.56 MG/DL 0.43 MG/DL Estimat Glomerular Filtration 153 ML/MIN 207 ML/MIN Rate Random Glucose 102 MG/DL 114 MG/DL Lactic Acid Level 4.6 mmol/L 1.4 mmol/L Calcium Level 8.2 MG/DL 8.6 MG/DL Phosphorus Level 2.7 MG/DL Magnesium Level 1.7 MG/DL Imaging Last Impressions Chest X-Ray 11/28/15 0000 Signed Impressions: Service Date/Time: Saturday, November 28, 2015 17:20 - CONCLUSION: Pulmonary vascular congestion. Central line is in good position. Nghia Mason MD Abdomen X-Ray 11/26/15 0000 Signed Impressions: Service Date/Time: November 12:34 - CONCLUSION: 1. Nonobstructive bowel gas pattern. 2. Stable position of gastrostomy tube. Multiple surgical screws secure the proximal left femur. 3. No obvious pneumoperitoneum on the single projection provided. Scott oGode MD Upper Extremity Ultrasound 10/13/15 0000 Signed Impressions: Service Date/Time: Tuesday, October 13, 2015 09:51 - CONCLUSION: 1. No evidence of deep venous thrombosis. John Anderson MD Renal Ultrasound 10/07/15 0000 Signed Impressions: Service Date/Time: Wednesday, October 07, 2015 18:29 - CONCLUSION: 1. No acute findings. 3.6 cm left renal cyst. Putnam catheter in bladder. Amaury Ellsworth MD Tunnelled Chest Tube Removal 08/05/15 1100 Signed Impressions: Service Date/Time: Wednesday, August 05, 2015 11:00 - CONCLUSION: Uncomplicated chest tube removal. Blaine Jackson MD Chest Tube Change 07/31/15 0000 Signed Impressions: Service Date/Time: Friday, July 31, 2015 14:34 - CONCLUSION: Uncomplicated reposition of previously placed chest tube as above. Blaine Jackson MD Chest Tube Insertion 07/30/15 0000 Signed Impressions: Service Date/Time: July 14:50 - CONCLUSION: Uncomplicated chest tube placement as above. Blaine Jackson MD Catheter Change 07/27/15 0000 Signed Impressions: Service Date/Time: Monday, July 27, 2015 14:43 - CONCLUSION: Uncomplicated gastrostomy tube exchange as above. Blaine Jackson MD Chest CT 07/11/15 0000 Signed Impressions: Service Date/Time: Saturday, July 11, 2015 09:49 - CONCLUSION: Scattered patchy densities significantly improved from previous study. Tiny anterior right basilar pneumothorax. Right-sided chest tube in good position. Néstor Matamoros MD Head CT 06/18/151902 Signed Impressions: Service Date/Time: June 19:31 - CONCLUSION: Diffuse atrophy unchanged. No acute intracranial findings. Kush Briscoe MD Abdomen/Pelvis CT 06/18/151902 Signed Impressions: Service Date/Time: , June 18, 2015 19:36 - CONCLUSION: 1. Chronic nonspecific urinary bladder wall thickening. Bladder collapsed with Putnam catheter in place. 2. Chronic bilateral mid to lower lung zone groundglass opacity. 3. Nonobstructing left renal calculus. 4. Distended rectum. Kush Briscoe MD Objective Remarks GENERAL: 54-year-old male, cachectic, debilitated with contractures on T piece. HEENT: NC/AT. PERRL. OP without erythema or exudates NECK: No JVD. Supple. 8.0 Distal XLT trach in place CARDIAC: RRR. S1/S2. No S4. No murmurs, clicks gallops or rubs. LUNGS: B/L equal air entry. On T piece. ABDOMEN: S/NT/ND. Positive BS EXTREMITIES: 1+ dependent pedal edema. Contractures and deformities of fingers. Stage III coccyx/sacral decubitus ulcer NEUROLOGY: Significant contractures of bilateral lower extremity, upper extremities. Eyes open spontaneously. Temporal and facial muscle wasting, muscular atrophy all extremities. Procedures 07/26- PEG replacement 07/29- right pigtail catheter placement for new pneumothorax Date of Insertion: Oct 05, 2015 A/P Assessment and Plan Neuro/Psych: Parkinson's disease Cognitive disorder Chronic encephalopathy Dementia Depression Contractures On no sedation. CT head 06/18/15: diffuse atrophy unchanged. No acute intracranial findings Continue Sinemet 25/100 q8 via PEG, Seroquel 50 mg twice a day, olanzapine 5 mg a night, Klonopin 2 mg every 8 hours, Paxil 20 daily Resp: Acute on chronic respiratory failure Chronic trach #8 Shiley distal XLT Pneumonia, aspiration (ESBL Klebsiella and Pseudomonas pneumonia) Right pneumothorax status post pigtail catheter 2 (resolved) Continue with oxygen keep sat >92% Bronchodilators, pulm toilet, trach care Pulmonary Dr. Restrepo following. On stress dose steroids- HC 50mg Q6 Exchanged to 8 Distal XLT on 08/15 to facilitate suctioning, trach care. Cardiac History of orthostasis History of CAD History dyslipidemia History of hypertension Continue Midodrine 5 mg BID. Off Levophed Monitor HR and BP keep MAP>65mmHg. Lactic acid resolved 1.4 last night. d/c IVF, diurese with Bumex 1mg x1, repeat CXR yesterday showed pulm vascular congestion On stress dose steroids- HC 50mg IV Q6, PO prednisone on hold GI: Chronic moderate protein energy malnutrition Dysphagia Status post PEG Internal hemorrhoids Gastroesophageal reflux disease - TF Jevity 1.5 @ 60ml/hr, on Reglan 5mg Q8 PRN for high residuals. - On Prevacid 30 mg per PEG tube daily for GERD - 11/25 KUB abdomen: Nonobstructive bowel gas pattern. Stable position of gastrostomy tube. FEN/Renal: Nonobstructing left renal calculus - Monitor renal function, I/O's. electrolytes replacement per protocol. -Diurese with Bumex 1mf x1 and d/c IVF ID: Aspiration pneumonia Cele UTI 11/26 sputum cx: GNR 11/13 C-diff PCR positive 11/18 Sputum: Pseudomonas 10/19 Sputum: Pseudomonas- likely colonized 10/19 urine cx: Yeast species 10/12 BC: NGTD 10/11 BC: NGTD 10/11 Urine cx: C. Tropicalis 10/11 Sputum: ESBL Klebsiella and Pseudomonas pneumonia 10/10 Urine: C. Tropicalis 09/21 Urine cx: Pseudomonas ? colonized 09/19 Sputum cx: Pseudomonas, Kleb pneumonia ESBL pos Candiduria (cele tropicalis urine cx 08/17) ESBL positive Klebsiella/Pseudomonas pneumonia Stenotrophomonas in sputum 08/17 MRSA colonization Sepsis UTI Klebsiella ESBL positive (has been treated) Continue with abx ( Zosyn, Levaquin) Vanco 1gram x1 dose yesterday, monitor for signs of infections ( Fever, WBC) ID service is following Endo: On SSI (Low) with accuchecks Q6. Heme Normocytic Anemia - Monitor CBC MSK Bilateral lower extremity Contractures Stage III sacral decubitus present on admission - Wound care and PT on case Prophylaxis - GI - Prevacid - DVT - SCDs/ Lovenox. ACCESS: PIVs Right subclavian CVP placed 11/27 Patient remains critically ill with sepsis and chronic resp failure. CCT 30 mins Antonio Carr MD Nov 29, 2015 07:14
[2015-11-29] MEDS ORDERED: BUMETANIDE INJ 1 MG/4 ML VIAL IV PUSH ONE (07:15)
[2015-11-29] MEDS: GABAPENTIN 300 MG CAP G-TUBE SCH ×2 (08:07→20:22)
[2015-11-29] MEDS: ARTIFICIAL TEARS OPTH SOLN 15 ML BTL EACH EYE SCH ×3 (08:07→17:33)
[2015-11-29] MEDS: CHLORHEXIDINE 0.12% (ORAL KIT) 15 ML CUP MT SCH ×2 (08:07→20:22)
[2015-11-29] MEDS: PARoxetine HCL 20 MG TAB G-TUBE SCH (08:08)
[2015-11-29] MEDS: QUEtiapine FUMARATE 25 MG TAB G-TUBE SCH ×2 (08:09→20:22)
[2015-11-29] MEDS: LANSOPRAZOLE SOLUTAB 30 MG TAB NG SCH (08:09)
[2015-11-29] MEDS: ACETAMINOPHEN/HYDROcodone 325 MG/5 MG TAB PO PRN (08:09)
[2015-11-29] MEDS: LACTOBACILLUS ACIDOPHILUS TAB PO SCH ×3 (08:09→17:34)
[2015-11-29] MEDS: COLLAGENASE OINT 30 GM TUBE TOP SCH (08:09)
[2015-11-29] MEDS: SODIUM CHLORIDE 0.9% FLUSH 5 ML FLUSH IVF SCH ×2 (08:09→20:23)
[2015-11-29] MEDS: MIDODRINE 5 MG TAB G-TUBE SCH ×2 (08:31→20:23)
[2015-11-29] MEDS: LEVOFLOXACIN 750 MG PREMIX INJ 150 ML IV SCH (14:28)
--- NOTE | 2015-11-29 17:50 | HHI.PR ---
Subjective Remarks 54 YOWM with ChRF,Trach, multiple uti No fever Gets anxious. Mod amount of trach secretions. Tolerating T-Bar Tolerates TF Levophed weaned off Objective Vital Signs Vital Signs Date Time Temp Pulse Resp B/P Pulse Ox O2 Delivery O2 Flow Rate FiO2 11/29/15 16:00 99 T-Piece 70 11/29/15 16:00 66 11/29/15 16:00 97.6 66 14 102/74 99 11/29/15 14:00 74 11/29/15 12:00 91 T-Piece 70 11/29/15 12:00 86 11/29/15 12:00 97.3 86 24 88/59 91 11/29/15 10:00 86 11/29/15 08:00 89 11/29/15 08:00 97.4 89 29 93/62 96 11/29/15 08:00 96 T-Piece 70 11/29/15 07:35 90 T-piece 98 11/29/15 06:00 86 11/29/15 04:00 97.6 83 24 93/58 90 11/29/15 04:00 90 T-Piece 28 11/29/15 04:00 83 11/29/15 02:00 79 11/29/15 00:00 100 11/29/15 00:00 97.1 100 26 108/74 100 11/29/15 00:00 100 T-Piece 28 11/28/15 22:00 90 11/28/15 20:24 100 T-piece 8.00 35 11/28/15 20:00 87 11/28/15 20:00 100 T-Piece 28 11/28/15 20:00 97.2 87 24 109/73 100 11/28/15 18:00 100 I/O 11/28/15 11/28/15 11/28/15 11/29/15 11/29/15 11/29/15 07:00 15:00 23:00 07:00 15:00 23:00 Intake Total 0 ml 3500 ml 1930 ml 1120 ml 1321 ml Output Total 2000 ml 1000 ml 400 ml 300 ml 1300 ml Balance -2000 ml 2500 ml 1530 ml 820 ml 21 ml Intake Oral 0 ml 0 ml 0 ml IV Total 3500 ml 1650 ml 660 ml 412 ml Tube Feeding 80 ml 260 ml 309 ml Tube Irrigant 600 ml Other 200 ml 200 ml Output Urine Total 2000 ml 1000 ml 400 ml 300 ml 1300 ml # Bowel Movements 1 0 0 1 Result Diagram: 11/29/1539911/29/15399 Objective Remarks GENERAL: MBMN male on Vent. SKIN: Warm and dry. HEAD: Normocephalic. EYES: No scleral icterus. No injection or drainage. NECK: Supple, trachea midline. No JVD or lymphadenopathy. has trach CARDIOVASCULAR: Regular rate and rhythm without murmurs, gallops, or rubs. RESPIRATORY: Breath sounds equal bilaterally. No accessory muscle use. GASTROINTESTINAL: Abdomen soft, non-tender, nondistended. PEG tube in place MUSCULOSKELETAL: No cyanosis, or edema. BACK: Nontender without obvious deformity. No CVA tenderness. A/P Assessment and Plan RF, On Trach collar S/P Trach Parkinson's diasease Dementia Aspiration Sepsis Hypotension PLAN: TF Cont Trach collar Trach care Cont Abx Levaquin, Hydrocortisone IV Levophed to keep MAP >65 Dr. Kiser will FU in AM. Severiano Ag MD Nov 29, 2015 17:50
[2015-11-29] MEDS: ENOXAPARIN SODIUM 40 MG/0.4 ML SYRINGE SQ SCH (20:22)
[2015-11-29] MEDS: OLANZapine 5 MG TAB GT SCH (20:22)
[2015-11-30] VITALS (15 sets, daily range): BP systolic 89–124; BP diastolic 58–77; PULSE 6–97; RESP 11–21; TEMP 97–98.2; O2SAT 90–100
[2015-11-30] MEDS: MORPHINE SULFATE 4 MG/ML INJ IV PUSH PRN ×3 (01:57→12:13)
[2015-11-30] MEDS: FREE WATER G-TUBE SCH ×4 (03:21→16:00)
[2015-11-30 04:41] LABS: BASOPHIL % 0.3 % (0.0-2.0); HEMO FLAGS DIFF FINAL; LYMPH % 4.8 % (9.0-44.0); LYMPHOCYTE # 0.5 TH/MM3 (1.0-4.8); MEAN CELL VOLUME 85.2 FL (80.0-100.0); MEAN CORPUSCULAR HEMOGLOBIN 28.1 PG (27.0-34.0); MEAN CORPUSCULAR HGB CONC 32.9 % (32.0-36.0); MONO % 3.2 % (0.0-8.0); NEUT % 91.7 % (16.0-70.0); PLATELET COUNT 157 TH/MM3 (150-450); RED BLOOD COUNT 3.17 MIL/MM3 (4.50-5.90); RED CELL DISTRIBUTION WIDTH 15.6 % (11.6-17.2); WHITE BLOOD COUNT 9.8 TH/MM3 (4.0-11.0)
[2015-11-30 04:46] LABS: BICARBONATE 32.5 MEQ/L (21.0-32.0); MAGNESIUM 1.6 MG/DL (1.5-2.5)
[2015-11-30 04:47] LABS: POTASSIUM 2.8 MEQ/L (3.5-5.1)
[2015-11-30] MEDS: HYDROCORTISONE SOD SUCCINATE 100 MG VIAL IV PUSH SCH ×3 (05:09→16:58)
[2015-11-30] MEDS: CARBIDOPA/LEVODOPA 25 MG/100 MG TAB GT SCH ×2 (05:09→16:58)
[2015-11-30] MEDS: clonazePAM 1 MG TAB PO SCH ×2 (05:09→16:58)
[2015-11-30] MEDS: POTASSIUM CHLOR 20 MEQ PREMIX 100 ML IV PRN ×3 (05:10→12:14)
[2015-11-30] MEDS: PIPERACIL-TAZO 4.5 GM PREMIX 100 ML IV SCH ×3 (05:10→16:57)
[2015-11-30] MEDS: INSULIN NovoLIN REGULAR SUPPLEMENTAL SCALE SQ SCH ×3 (05:28→16:57)
--- NOTE | 2015-11-30 08:24 | HHI.CCPN ---
Subjective Remarks/Hospital Course 06/17: Pt is a 54 yr man with multiple medical problems including Parkinson's disease, advanced dementia, hyponatremia, anxiety, pneumonia, GERD, cognitive disorder, and multidrug resistant UTI- ESBL02/19/15 , who resides in a snf. Pt by report was found by staff in snf to be less alert and having respiratory difficultly and fevers. Pt was brought to ED adn placed on ventilator. His workup was inclusive of labs, chest xray and ct head and abd/pelvis. WBC 16.4, +UTI, lactic acid 4, troponin ,0.02, BUN/ cre 18/ 0.76. CT head 06/18/15: diffuse atrophy unchanged. No acute intracranial findings ct abd/ pelvis with IV contrast: 06/18/15 Conclusion: 1. Chronic nonspecific urinary bladder wall thickening. Bladder collapsed with Putnam catheter in place. 2.Chronic bilateral mid to lower zone groundglass opacity. 3. Nonobstructing left renal calculus. 4. Distended rectum Pt admitted and fluid and abx ordered. 06/18: Drowsy, easily arousable. On mechanical ventilation via tracheostomy. Tachypneic. Resting tremor noted. 06/19: Drowsy, arousable. On mechanical ventilation via tracheostomy. 06/20: Drowsy, arousable. Remains on mechanical ventilation via tracheostomy. We'll repeat blood cultures, UA and urine cultures. Fluconazole IV added in view of yeast in urine. 07/06: Reconsulted as patient return to the ventilator on a right ventricular due to tachypnea. Low-grade temperatures. Tolerating tube feeding. Extremity encephalopathic demented patient with difficult neurological examination. 07/07: Status post chest tube placement by IR for right pneumothorax 07/06. Afebrile. Tolerating tube feeds. Positive BM. Currently tachypneic on the ventilator. Does not appear to be any acute distress. 07/08: Afebrile. Tolerating tube feeding. He is comfortable currently on CPAP trials 11/10. Positive BM. 07/09: Afebrile. Tolerating tube feeding. Appears comfortable on T bar. Positive BM. 07/10: Afebrile. Eyes are open. Remained on T piece overnight. Tolerating tube feeding. 07/11: MAXIMUM TEMPERATURE 100. Currently 98.6. Eyes are open. On ACV overnight secondary to "tachypnea and sweating". Switching back to PSV trials today. Goal is T piece during daytime, CPAP at night. 07/12: No acute events overnight. On PSV 15/5 -attempt TP up to 6 hours today. No pneumothorax on chest x-ray 07/13: Placed back on full ventilator support for tachypnea. Otherwise clinically unchanged. No fever today 07/14: Patient was on T piece yesterday evening, placed back on PSV overnight, patient mechanical ventilation this morning. Patient appears to be struggling with mechanical ventilation. Patient placed back on PSV with improvement 07/15: Patient placed back on mechanical ventilation last evening due to respiratory rate. It was indicated patient was tachypnea can the 40s. Patient on mechanical ventilation this time with respiration rate mid 20s. Chest tube still in place without any output, chest x-ray still indicating resolution of pneumothorax. 07/16: Patient seen and examined today. Patient placed back on mechanical ventilation overnight due to respiratory rate. Even on mechanical ventilation patient has respiration rate in the 30s. Patient afebrile, blood pressure stable. Continue vent weaning 07/17: Patient seen and examined. Currently afebrile. Currently on CPAP 15/5 @ 40%. Patient is awake with open mouth resting in bed in no apparent acute distress. Tolerating tube feeding. 2 bowel movements. 07/18: No neurological changes. Afebrile. 2 bowel moments. Tolerating tube feeding. We'll attempt TP trials today. On CPAP since 07/15 07/19 No events overnight. On CPAP with PS: 10, PEEP: 5 and FIO2 35%. Afebrile. On no sedation. 07/20 No events overnight. Tolerating CPAP. Afebrile. 07/21: Remains on CPAP. Attempt T piece trial today. Afebrile. One bowel movement. Tolerating tube feeding. 07/22: Afebrile. Positive BM. Tolerating tube feeding. Noted switched tracheostomy to #6 Shiley cuffed fenestrated. Neurologically unchanged 07/23: Afebrile. Positive BM. Tolerating tube feeding. Questionable leak in exchange trach. Place back on a rate/ACV overnight. Insufflated seems to be doing better at the present time. Will check chest x-ray. Possible he might need #6 XLT versus replacement of chronic #8 Shiley. 07/24: Tolerating TP today, RR in low 30s patient appears comfortable. No acute events overnight 07/25: Remains off the ventilator more than 36 hours now. Intermittently tachypneic probably breathing. Chest x-ray was clear yesterday. No acute events reported overnight. PEG not functioning per RN 08/02: Patient was transferred back to critical care service due to continuing ventilator management, tachypnea. Patient clinical status with no significant change. Patient with low-grade fever 100.2, 08/03: Patient seen and examined today. No significant change in clinical status. Patient still with chronic tachypnea. Patient afebrile now. 08/04: Patient seen and examined today. No change in clinical status. Patient still continues to have chronic tachypnea. Patient afebrile. Continue vent weaning 08/05: Patient seen and examined today. Patient had chest tube removed yesterday , chest x-ray shows redevelopment of pneumothorax. Chest tube replaced. Otherwise, patient still on ventilator with tachypnea. Afebrile 08/06: Patient seen and examined today. Patient went to have chest tube placed, repeat chest x-ray did not indicate any pneumothorax. No overnight events. We' ll need to pursue LTAC placement 08/07 No events overnight. On ventilator via trach. Afebrile. 08/08 Patient tolerated CPAP x4 hrs yesterday. Afebrile. On no sedation. 08/09 No events overnight. Tolerated CPAP x 12 hrs yesterday. Afebrile. 08/10 Patient tolerated TP's x 12 hrs yesterday back on ACV overnight. 08/11 No events overnight, currently on TP's with 40% FIO2. Afebrile. 08/12 On CPAP 10/5. Tolerated Tpiece 3 hours earlier today. Afebrile. 08/13 On CPAP 10/5. Not tolerating CPAP as well over last few days and RT notes challenge with suctioning respiratory secretions adequately. Discussing with healthcare proxy regarding exchange trach to 8.0. 08/14 Nursing and RT staff having continued difficulty suctioning respiratory secretions via 6.0 tracheostomy. KAREN Garcia did not consent to stoma dilation and trach upsize yesterday but said she would call back and let me know but no return call. Contacted again today and left a message. Afebrile. On CPAP 10/5. Brow furrowing on exam, appears to be in pain but pain not localizable. Tolerating tube feeds, had BM yesterday 08/15 Not tolerating CPAP today. Contacted healthcare surrogate again and discussed need for trach change. She consented and trach was dilated and up- sized to 8.0 Distal XLT to facilitate pulmonary toilet and to address volume leak. 08/16 No events overnight. Remains on ventilator via trach. Afebrile. Tolerating TF. 08/17 No events overnight. Afebrile. 08/18 Patient tolerated CPAP x 4 hrs yesterday. Afebrile.On ventilator via trach. 08/19 On CPAP 25/06. Temp max 99.3 08/20 Stenotrophomonas in sputum, started on Levaquin per ID. Temp max 99.8. On CPAP 20/09. Tube feeds were held because PEG was clogged but now PEG is functioning. 08/21 No events overnight. Afebrile. Remains on ventilator via trach. Has been tolerating CPAP trials for last 2 days. 08/22 No events overnight. Afebrile , Has been on CPAP all night with PS: 20, PEEP; 5 and FIO2 35%. 08/23 No events overnight. Remains on CPAP, T:99.9 08/24 No events overnight. On CPAP PS 10, PEEP; 5 and FIO2 35% overnight. Afebrile. 08/25 No events overnight. Afebrile. On CPAP overnight with PS 8, PEEP: 5 and FIO2 35%, afebrile. Tolerating TF. 08/26 Tolerating Tpiece. 08/27 Tolerated Tpiece yesterday and overnight. However this evening desaturated and was placed back on CPAP. Dr. Mistry attempted to update daughter Radha Foreman and discuss his overall poor prognosis for recovery, but call got disconnected midway through call and could not reach her back 08/28 On PSV 10/5 40% today. Afebrile. 08/29 On CPAP overnight. Now on Tpiece 70% per pulmonology. Increased yellow secretions noted. Temp max 99.1 Nursing staff expresses concern that he appears uncomfortable during all nursing care. Called elsa Garcia to update , no answer, left message to call me. 08/30: On CPAP overnight. Currently on T piece at 45%. Currently afebrile. Positive BM. Tolerating tube feeding. 08/31: On CPAP overnight. Will return T piece at 35%. MAXIMUM TEMPERATURE 99.6. 5 bowel movements. Tolerating tube feeds. Neurological examination unchanged. 09/01: Tmax 99.2. Currently afebrile. Currently in TPs at 35%. 7 bowel movement overnight. Tolerating tube feeding. Subjective: 09/19: Ciarra called secondary to aspiration on Gen. medical floor. Transfer to ICU and placed on mechanical ventilation. ABG shows CO2 retention. Etc. revealed no acute cardiac 20 finds however copious message to feed suctioned from trach tube 09/20 No events overnight. Afebrile. On ACV with RR 16, TV 500, PEEP: 5 and FIO2 40%. 09/21 No events overnight. Afebrile. 09/22 No events overnight. Tolerated CPAP all day yesterday with PS 12, PEEP:5 and FIO2 35%. Afebrile. 09/23 No events overnight. On no sedation Tolerated CPAP yesterday. Had T:100.3 last night. 09/24 Patient tolerated TP's x 6 hrs yesterday On CPAP 12/5 with 35% FIO2 overnight. Afebrile. 09/25 No events overnight. On CPAP overnight and TP's during day. Tolerating tube feeds. 10/11 Reconsult: Ciarra was called as patient was found hypotensive with SBP 80' s and tube feeds coming from trach site. Patient is receiving 1L bolus NS and STAT CXR showed mild pulm edema. On arrival to ICU patient was connected to ventilator ( On ACV RR 16, TV 500, PEEP:5 and FIO2 40% with sats 95%. Current BP 125/91 , P:81 10/12 Patient remains on ventilator overnight. Borderline low BP with MAP ranges 67-72. Afebrile. On no sedation. 10/13 Patient is on ventilator via trach, afebrile, WBC trending down. Patient was hypotensive yesterday responded to fluid resuscitation not on any pressors. 10/14: No acute events overnight. WBC count has normalized. Will start SBT as tolerated. CXR in am 10/15 No acute events overnight. Phosphorus low needs replacement. Otherwise neuro exam remains unchanged. remains on CPAP 10/16 Patient remains on ventilator via trach. On no sedation. Afebrile. 10/17 No acute events overnight. On ventilator via trach. Afebrile. 10/18 Tolerates CPAP, but unable to wean further. Otherwise no acute events overnight, remains afebrile 10/19 Patient is on ventilator via trach, UO 175ml in last 7 hrs. Afebrile. Tolerated CPAP x 6 hrs yesterday. 10/20 No acute events overnight. Tolerated CPAP for several hrs yesterday. Afebrile. UO better ( 1275ml in 24hrs). Given 1L NS total yesterday for decrease UO. 10/21 Patient is on ventilator via trach tolerated CPAP for most of day yesterday. Afebrile. Tolerating tube feeds. 10/22 No acute events overnight. Patient was on CPAP all day yesterday. Afebrile. 10/23 Patient tolerated all day yesterday. On ventilator via trach. Afebrile. 10/24 Patient remains on ventilator via trach. Afebrile. 10/25 Remains on vent on PSV 15/5. No acute events overnight. WBC slightly increased 10/26 PSV reduced to 10/5. Required AC/VC support yesterday as patient became tachypneic. No other changes 10/27 no acute changes overnight. Tolerating 10 over 5 PSV. WBC count has normalized, T piece today 10/28: No acute events overnight. Did not tolerate T piece trial yesterday. Tolerated CPAP. No fever 10/29: No acute events reported. Currently on 12 over 5 pressure support, reduced to 8/5. No fever 10/30 No acute events overnight. On CPAP with PS 10, PEEP: 5 and FIO2 35% overnight. Afebrile. 10/31: Remains on T piece since yesterday. 11/01: Was on T piece during day and C Pap at night. 11/01: Remains on T piece since yesterday morning. 11/27 Reconsult for sepsis, hypotension. Patient became hypotensive with SBP 80's given 3L crystalloids. T: 96.1 last night. Lactic acid 7.1 from 2.8. CXR this morning showed no acute disease. Remains unresponsive on TP's with 35% FIO2. 11/28 Patient is off Levophed, on TP's with 28 % FIO2. Remains unresponsive. Lactic acid resolved 1.4 last night. 11/29 Patient remains off pressor on TP's with good sats. BP borderline low. MAP 68 mmHg Objective - Vital Signs Date Time Temp Pulse Resp B/P Pulse Ox O2 Delivery O2 Flow Rate FiO2 11/30/15 06:00 86 11/30/15 04:00 96 T-Piece 28 11/30/15 04:00 97.0 11 89/58 11/29/15 20:36 8.00 Intake and Output 11/29/15 11/29/15 11/30/15 08:00 16:00 00:00 Intake Total 1120 ml 1321 ml 960 ml Output Total 300 ml 1300 ml 400 ml Balance 820 ml 21 ml 560 ml Result Diagram: 11/30/15 0300 11/30/15 0300 Other Results Laboratory Tests Test 11/30/15 03:00 White Blood Count 9.8 TH/MM3 Red Blood Count 3.17 MIL/MM3 Hemoglobin 8.9 GM/DL Hematocrit 27.0 % Mean Corpuscular Volume 85.2 FL Mean Corpuscular Hemoglobin 28.1 PG Mean Corpuscular Hemoglobin 32.9 % Concent Red Cell Distribution Width 15.6 % Platelet Count 157 TH/MM3 Mean Platelet Volume 10.1 FL Neutrophils (%) (Auto) 91.7 % Lymphocytes (%) (Auto) 4.8 % Monocytes (%) (Auto) 3.2 % Eosinophils (%) (Auto) 0.0 % Basophils (%) (Auto) 0.3 % Neutrophils # (Auto) 9.0 TH/MM3 Lymphocytes # (Auto) 0.5 TH/MM3 Monocytes # (Auto) 0.3 TH/MM3 Eosinophils # (Auto) 0.0 TH/MM3 Basophils # (Auto) 0.0 TH/MM3 CBC Comment DIFF FINAL Differential Comment Sodium Level 142 MEQ/L Potassium Level 2.8 MEQ/L Chloride Level 105 MEQ/L Carbon Dioxide Level 32.5 MEQ/L Anion Gap 5 MEQ/L Blood Urea Nitrogen 10 MG/DL Creatinine 0.36 MG/DL Estimat Glomerular Filtration 254 ML/MIN Rate Random Glucose 155 MG/DL Calcium Level 7.9 MG/DL Phosphorus Level 1.4 MG/DL Magnesium Level 1.6 MG/DL Imaging Last Impressions Chest X-Ray 11/28/15 0000 Signed Impressions: Service Date/Time: Saturday, November 28, 2015 17:20 - CONCLUSION: Pulmonary vascular congestion. Central line is in good position. Nghia Mason MD Abdomen X-Ray 11/26/15 0000 Signed Impressions: Service Date/Time: November 12:34 - CONCLUSION: 1. Nonobstructive bowel gas pattern. 2. Stable position of gastrostomy tube. Multiple surgical screws secure the proximal left femur. 3. No obvious pneumoperitoneum on the single projection provided. Scott Goode MD Upper Extremity Ultrasound 10/13/15 0000 Signed Impressions: Service Date/Time: Tuesday, October 13, 2015 09:51 - CONCLUSION: 1. No evidence of deep venous thrombosis. John Anderson MD Renal Ultrasound 10/07/15 0000 Signed Impressions: Service Date/Time: Wednesday, October 07, 2015 18:29 - CONCLUSION: 1. No acute findings. 3.6 cm left renal cyst. Putnam catheter in bladder. Amaury Ellsworth MD Tunnelled Chest Tube Removal 08/05/15 1100 Signed Impressions: Service Date/Time: Wednesday, August 05, 2015 11:00 - CONCLUSION: Uncomplicated chest tube removal. Blaine Jackson MD Chest Tube Change 07/31/15 0000 Signed Impressions: Service Date/Time: Friday, July 31, 2015 14:34 - CONCLUSION: Uncomplicated reposition of previously placed chest tube as above. Blaine Jackson MD Chest Tube Insertion 07/30/15 0000 Signed Impressions: Service Date/Time: July 14:50 - CONCLUSION: Uncomplicated chest tube placement as above. Blaine Jackson MD Catheter Change 07/27/15 0000 Signed Impressions: Service Date/Time: Monday, July 27, 2015 14:43 - CONCLUSION: Uncomplicated gastrostomy tube exchange as above. Blaine Jackson MD Chest CT 07/11/15 0000 Signed Impressions: Service Date/Time: Saturday, July 11, 2015 09:49 - CONCLUSION: Scattered patchy densities significantly improved from previous study. Tiny anterior right basilar pneumothorax. Right-sided chest tube in good position. Néstor Matamoros MD Head CT 06/18/15 0793 Signed Impressions: Service Date/Time: June 19:31 - CONCLUSION: Diffuse atrophy unchanged. No acute intracranial findings. Kush Briscoe MD Abdomen/Pelvis CT 06/18/15 1903 Signed Impressions: Service Date/Time: June 19:36 - CONCLUSION: 1. Chronic nonspecific urinary bladder wall thickening. Bladder collapsed with Putnam catheter in place. 2. Chronic bilateral mid to lower lung zone groundglass opacity. 3. Nonobstructing left renal calculus. 4. Distended rectum. Kush Briscoe MD Objective Remarks GENERAL: 54-year-old male, cachectic, debilitated with contractures on T piece. HEENT: NC/AT. PERRL. OP without erythema or exudates NECK: No JVD. Supple. 8.0 Distal XLT trach in place CARDIAC: RRR. S1/S2. No S4. No murmurs, clicks gallops or rubs. LUNGS: B/L equal air entry. On T piece. ABDOMEN: S/NT/ND. Positive BS EXTREMITIES: 1+ dependent pedal edema. Contractures and deformities of fingers. Stage III coccyx/sacral decubitus ulcer NEUROLOGY: Significant contractures of bilateral lower extremity, upper extremities. Eyes open spontaneously. Temporal and facial muscle wasting, muscular atrophy all extremities. Procedures 07/26- PEG replacement 07/29- right pigtail catheter placement for new pneumothorax Date of Insertion: Oct 05, 2015 A/P Assessment and Plan Neuro/Psych: Parkinson's disease Cognitive disorder Chronic encephalopathy Dementia Depression Contractures On no sedation. CT head 06/18/15: diffuse atrophy unchanged. No acute intracranial findings Continue Sinemet 25/100 q8 via PEG, Seroquel 50 mg twice a day, olanzapine 5 mg a night, Klonopin 2 mg every 8 hours, Paxil 20 daily Resp: Acute on chronic respiratory failure Chronic trach #8 Shiley distal XLT Pneumonia, aspiration (ESBL Klebsiella and Pseudomonas pneumonia) Right pneumothorax status post pigtail catheter 2 (resolved) Continue with oxygen keep sat >92% Bronchodilators, pulm toilet, trach care Pulmonary Dr. Restrepo following. On stress dose steroids- HC 50mg Q6 Exchanged to 8 Distal XLT on 08/15 to facilitate suctioning, trach care. Cardiac History of orthostasis History of CAD History dyslipidemia History of hypertension Continue Midodrine 5 mg BID. Off Levophed Monitor HR and BP keep MAP>65mmHg. Lactic acid resolved 1.4 11/27 On stress dose steroids- HC 50mg IV Q6, PO prednisone on hold GI: Chronic moderate protein energy malnutrition Dysphagia Status post PEG Internal hemorrhoids Gastroesophageal reflux disease - TF Jevity 1.5 @ 60ml/hr, on Reglan 5mg Q8 PRN for high residuals. - On Prevacid 30 mg per PEG tube daily for GERD - 11/25 KUB abdomen: Nonobstructive bowel gas pattern. Stable position of gastrostomy tube. FEN/Renal: Nonobstructing left renal calculus - Monitor renal function, I/O's. electrolytes replacement per protocol. -Will need K, Phos replacement today ID: Aspiration pneumonia Cele UTI 11/26 Urine cx: GNR 11/26 sputum cx: GNR 11/13 C-diff PCR positive 11/18 Sputum: Pseudomonas 10/19 Sputum: Pseudomonas- likely colonized 10/19 urine cx: Yeast species 10/12 BC: NGTD 10/11 BC: NGTD 10/11 Urine cx: C. Tropicalis 10/11 Sputum: ESBL Klebsiella and Pseudomonas pneumonia 10/10 Urine: C. Tropicalis 09/21 Urine cx: Pseudomonas ? colonized 09/19 Sputum cx: Pseudomonas, Kleb pneumonia ESBL pos Candiduria (cele tropicalis urine cx 08/17) ESBL positive Klebsiella/Pseudomonas pneumonia Stenotrophomonas in sputum 08/17 MRSA colonization Sepsis UTI Klebsiella ESBL positive (has been treated) Continue with abx ( Zosyn, Levaquin) Vanco 1gram x1 dose 11/27, monitor for signs of infections ( Fever, WBC) ID service is following, follow up on cultures Endo: On SSI (Low) with accuchecks Q6. Heme Normocytic Anemia - Monitor CBC MSK Bilateral lower extremity Contractures Stage III sacral decubitus present on admission - Wound care and PT on case Prophylaxis - GI - Prevacid - DVT - SCDs/ Lovenox. ACCESS: PIVs Right subclavian CVP placed 11/27 Patient remains critically ill with sepsis and chronic resp failure. Palliative care is following CCT 30 mins Antonio Carr MD Nov 30, 2015 08:24
[2015-11-30] MEDS: POTASSIUM PHOSPHATE INJ 30 MMOL in SODIUM CHLOR 0.9% 250 ML INJ 250 ML IV PRN (09:05)
[2015-11-30] MEDS: LANSOPRAZOLE SOLUTAB 30 MG TAB NG SCH (09:06)
[2015-11-30] MEDS: MIDODRINE 5 MG TAB G-TUBE SCH (09:06)
[2015-11-30] MEDS: ACETAMINOPHEN/HYDROcodone 325 MG/5 MG TAB PO PRN ×2 (09:06→16:58)
[2015-11-30] MEDS: LACTOBACILLUS ACIDOPHILUS TAB PO SCH ×3 (09:06→16:57)
[2015-11-30] MEDS: PARoxetine HCL 20 MG TAB G-TUBE SCH (09:06)
[2015-11-30] MEDS: GABAPENTIN 300 MG CAP G-TUBE SCH (09:06)
[2015-11-30] MEDS: QUEtiapine FUMARATE 25 MG TAB G-TUBE SCH (09:06)
[2015-11-30] MEDS: COLLAGENASE OINT 30 GM TUBE TOP SCH (09:07)
[2015-11-30] MEDS: ARTIFICIAL TEARS OPTH SOLN 15 ML BTL EACH EYE SCH ×3 (09:07→16:59)
[2015-11-30] MEDS: SODIUM CHLORIDE 0.9% FLUSH 5 ML FLUSH IVF SCH ×2 (09:07→21:00)
[2015-11-30] MEDS: CHLORHEXIDINE 0.12% (ORAL KIT) 15 ML CUP MT SCH (09:08)
--- NOTE | 2015-11-30 12:46 | HHI.PR ---
Subjective Remarks Transferred to [facility] – [place] for resp Failure and septic shock. Now on the vent at FIO2 70%. vomiting .Now on IV NS Off tube feeds. Objective Vital Signs Date Time Temp Pulse Resp B/P Pulse Ox O2 Delivery O2 Flow Rate FiO2 11/30/15 10:06 12 11/30/15 10:00 63 11/30/15 09:20 95 T-piece 6.00 50 11/30/15 08:00 97.0 66 12 90/69 95 11/30/15 08:00 66 11/30/15 08:00 95 T-Piece 28 11/30/15 06:00 86 11/30/15 04:00 96 T-Piece 28 11/30/15 04:00 60 11/30/15 04:00 97.0 60 11 89/58 96 11/30/15 02:00 69 11/30/15 00:00 97.1 69 15 89/64 98 11/30/15 00:00 69 11/30/15 00:00 98 T-Piece 28 11/29/15 22:00 76 11/29/15 20:36 97 T-piece 8.00 50 11/29/15 20:00 96 T-Piece 28 11/29/15 20:00 71 11/29/15 20:00 97.4 71 23 83/62 96 11/29/15 18:00 79 11/29/15 16:00 99 T-Piece 70 11/29/15 16:00 66 11/29/15 16:00 97.6 66 14 102/74 99 11/29/15 14:00 74 I/O 11/29/15 11/29/15 11/29/15 11/30/15 11/30/15 11/30/15 07:00 15:00 23:00 07:00 15:00 23:00 Intake Total 1120 ml 1321 ml 960 ml 900 ml Output Total 300 ml 1300 ml 400 ml 300 ml Balance 820 ml 21 ml 560 ml 600 ml Intake Oral 0 ml 0 ml 0 ml IV Total 660 ml 412 ml 400 ml 280 ml Tube Feeding 260 ml 309 ml 360 ml 420 ml Tube Irrigant 600 ml Other 200 ml 200 ml 200 ml Output Urine Total 300 ml 1300 ml 400 ml 300 ml # Bowel Movements 0 1 0 0 Result Diagram: 11/30/15 0300 11/30/15 0300 Objective Remarks This is a thin white male who is responsive ,with a trach tube in place. HEENT: Pupils are equal and reactive to light. few Throat secretions CHEST:Decreased breath sounds, with wheeze and fine basal crackles. CARDIOVASCULAR: S1 and S2 is normal.No murmur. ABDOMEN: Soft, nondistended. BS +. He has a PEG tube in place. EXTREMITIES: No edema.muscle wasting. NEURO: Alert, and has weak extremities, but moves arms. Skin is dry. Assessment and Plan Assessment and Plan IMPRESSION 1. Chronic Respiratory failure. 2. Sepsis, Aspiration. 3. Shock.Resolved. 4. Tracheobronchitis 5. Parkinson's disease 6. Dementia. 7. Severe Deconditioning. Plan : 1. Cont Vent at A/C 16, FIO2 50 %. 2. Nebs qid , duoneb. 3. Resume tube feeds at 30 CC and Keep Head end up 45 degrees 4. Cont prednisone 5 mg daily. 5. Levsin .25 mg tid prn for Secretions 6. Cont Trach toilet and lavage. 8. Chest X ray and BMP. 9. IV NS at 50 CC 10. Antibiotics per ID. Darren Kiser MD Nov 30, 2015 12:46
--- NOTE | 2015-11-30 13:11 | HHI.IDPN ---
Subjective Subjective Remarks Chart reviewed. Reconsult for evaluation of septic shock. He well-known to the ID service. Has been treated for multiple infections including pneumonia and UTI. Was last seen around November 15 for evaluation of positive C. difficile toxin. On that evaluation it was felt that he did not need any treatment. His stools were pasty at that time. He was on oral Vanco and that was discontinued, and patient received only 4 doses. On November 18 there was a sputum culture that had Pseudomonas. I don't think it was treated. During that time he was having a lot of secretions. His tracheal secretions improved. On November 25 patient vomited tube feedings. He subsequently developed more respiratory problem, became hypotensive, and transferred to the intensive care unit. He is not febrile. He is currently on Levophed. His WBC had gone up. Patient currently on tube feedings. He remains on T piece. He is currently on Zosyn, Levaquin, and vancomycin. Infectious disease consultation requested to evaluate the patient with sepsis and shock. Antibiotics Vanco IV Zosyn Levaquin Lines Peripheral IV with no e/o infection Past Medical History reviewed Allergies: Coded Allergies: *MDRO Multi-Drug Resistant Organism (Verified Adverse Reaction, Unknown, ) ESBL E. coli (urine) - 02/19/2015; ESBL K. 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 Vital Signs Date Time Temp Pulse Resp B/P Pulse Ox O2 Delivery O2 Flow Rate FiO2 11/30/15 12:18 25 11/30/15 10:06 12 11/30/15 10:00 63 11/30/15 09:20 95 T-piece 6.00 50 11/30/15 08:00 97.0 66 12 90/69 95 11/30/15 08:00 66 11/30/15 08:00 95 T-Piece 28 11/30/15 06:00 86 11/30/15 04:00 96 T-Piece 28 11/30/15 04:00 60 11/30/15 04:00 97.0 60 11 89/58 96 11/30/15 02:00 69 11/30/15 00:00 97.1 69 15 89/64 98 11/30/15 00:00 69 11/30/15 00:00 98 T-Piece 28 11/29/15 22:00 76 11/29/15 20:36 97 T-piece 8.00 50 11/29/15 20:00 96 T-Piece 28 11/29/15 20:00 71 11/29/15 20:00 97.4 71 23 83/62 96 11/29/15 18:00 79 11/29/15 16:00 99 T-Piece 70 11/29/15 16:00 66 11/29/15 16:00 97.6 66 14 102/74 99 11/29/15 14:00 74 11/29/15 11/29/15 11/30/15 15:00 23:00 07:00 Intake Total 1321 ml 960 ml 900 ml Output Total 1300 ml 400 ml 300 ml Balance 21 ml 560 ml 600 ml Intake Oral 0 ml 0 ml IV Total 412 ml 400 ml 280 ml Tube Feeding 309 ml 360 ml 420 ml Tube Irrigant 600 ml Other 200 ml 200 ml Output Urine Total 1300 ml 400 ml 300 ml # Bowel Movements 1 0 0 . Laboratory Tests Test 11/29/15 11/30/15 04:00 03:00 White Blood Count 8.7 TH/MM3 9.8 TH/MM3 Red Blood Count 3.32 MIL/MM3 3.17 MIL/MM3 Hemoglobin 9.3 GM/DL 8.9 GM/DL Hematocrit 28.5 % 27.0 % Mean Corpuscular Volume 86.0 FL 85.2 FL Mean Corpuscular Hemoglobin 28.1 PG 28.1 PG Mean Corpuscular Hemoglobin 32.7 % 32.9 % Concent Red Cell Distribution Width 16.0 % 15.6 % Platelet Count 163 TH/MM3 157 TH/MM3 Mean Platelet Volume 9.7 FL 10.1 FL Neutrophils (%) (Auto) 92.4 % 91.7 % Lymphocytes (%) (Auto) 3.7 % 4.8 % Monocytes (%) (Auto) 3.6 % 3.2 % Eosinophils (%) (Auto) 0.0 % 0.0 % Basophils (%) (Auto) 0.3 % 0.3 % Neutrophils # (Auto) 8.0 TH/MM3 9.0 TH/MM3 Lymphocytes # (Auto) 0.3 TH/MM3 0.5 TH/MM3 Monocytes # (Auto) 0.3 TH/MM3 0.3 TH/MM3 Eosinophils # (Auto) 0.0 TH/MM3 0.0 TH/MM3 Basophils # (Auto) 0.0 TH/MM3 0.0 TH/MM3 CBC Comment DIFF FINAL DIFF FINAL Differential Comment Laboratory Tests Test 11/28/15 11/29/15 11/30/15 19:58 04:00 03:00 Lactic Acid Level 1.4 mmol/L Sodium Level 146 MEQ/L 142 MEQ/L Potassium Level 4.4 MEQ/L 2.8 MEQ/L Chloride Level 114 MEQ/L 105 MEQ/L Carbon Dioxide Level 24.4 MEQ/L 32.5 MEQ/L Anion Gap 8 MEQ/L 5 MEQ/L Blood Urea Nitrogen 10 MG/DL 10 MG/DL Creatinine 0.43 MG/DL 0.36 MG/DL Estimat Glomerular Filtration 207 ML/MIN 254 ML/MIN Rate Random Glucose 114 MG/DL 155 MG/DL Calcium Level 8.6 MG/DL 7.9 MG/DL Phosphorus Level 1.4 MG/DL Magnesium Level 1.6 MG/DL Microbiology Date/Time Procedure Status Source Growth 11/27/15 15:30 Urine Culture - Final Complete Urine Catheterized Urine Klebsiella Pneumoniae Esbl Pos 11/27/15 18:00 Gram Stain - Final Resulted Sputum Endotracheal 11/27/15 18:00 Sputum Culture - Preliminary Resulted Gram Negative Jesse 11/28/15 00:45 Aerobic Blood Culture - Preliminary Resulted Blood Line NO GROWTH IN 2 DAYS 11/28/15 00:45 Anaerobic Blood Culture - Preliminary Resulted Blood Line NO GROWTH IN 2 DAYS 11/28/15 00:50 Aerobic Blood Culture - Preliminary Resulted Blood Line NO GROWTH IN 2 DAYS 11/28/15 00:50 Anaerobic Blood Culture - Preliminary Resulted Blood Line NO GROWTH IN 2 DAYS Imaging Last Impressions Chest X-Ray 11/28/15 0000 Signed Impressions: Service Date/Time: Saturday, November 28, 2015 00:21 - CONCLUSION: No acute cardiopulmonary disease. Eugene Schmid MD Abdomen X-Ray 11/26/15 0000 Signed Impressions: Service Date/Time: November 12:34 - CONCLUSION: 1. Nonobstructive bowel gas pattern. 2. Stable position of gastrostomy tube. Multiple surgical screws secure the proximal left femur. 3. No obvious pneumoperitoneum on the single projection provided. Scott Goode MD Upper Extremity Ultrasound 10/13/15 0000 Signed Impressions: Service Date/Time: Tuesday, October 13, 2015 09:51 - CONCLUSION: 1. No evidence of deep venous thrombosis. John Anderson MD Renal Ultrasound 10/07/15 0000 Signed Impressions: Service Date/Time: Wednesday, October 07, 2015 18:29 - CONCLUSION: 1. No acute findings. 3.6 cm left renal cyst. Valdez catheter in bladder. Amaury Ellsworth MD Tunnelled Chest Tube Removal 08/05/15 1100 Signed Impressions: Service Date/Time: Wednesday, August 05, 2015 11:00 - CONCLUSION: Uncomplicated chest tube removal. Blaine Jackson MD Chest Tube Change 07/31/15 0000 Signed Impressions: Service Date/Time: Friday, July 31, 2015 14:34 - CONCLUSION: Uncomplicated reposition of previously placed chest tube as above. Blaine Jackson MD Chest Tube Insertion 07/30/15 0000 Signed Impressions: Service Date/Time: July 14:50 - CONCLUSION: Uncomplicated chest tube placement as above. Blaine Jackson MD Catheter Change 07/27/15 0000 Signed Impressions: Service Date/Time: Monday, July 27, 2015 14:43 - CONCLUSION: Uncomplicated gastrostomy tube exchange as above. Blaine Jackson MD Chest CT 07/11/15 0000 Signed Impressions: Service Date/Time: Saturday, July 11, 2015 09:49 - CONCLUSION: Scattered patchy densities significantly improved from previous study. Tiny anterior right basilar pneumothorax. Right-sided chest tube in good position. Néstor Matamoros MD Head CT 06/18/[id number] Signed Impressions: Service Date/Time: June 19:31 - CONCLUSION: Diffuse atrophy unchanged. No acute intracranial findings. Kush Briscoe MD Abdomen/Pelvis CT [id number]/18/[id number] Signed Impressions: Service Date/Time: June 19:36 - CONCLUSION: 1. Chronic nonspecific urinary bladder wall thickening. Bladder collapsed with Valdez catheter in place. 2. Chronic bilateral mid to lower lung zone groundglass opacity. 3. Nonobstructing left renal calculus. 4. Distended rectum. Kush Briscoe MD Physical Exam GENERAL: Eyes open, ?focusing, not interacting, not SOB, on T-piece, looks diaohoretic SKIN: Cool and moist. No generalized rash. No cyanosis. HEENT: [place] conjunctivae, no icterus, moist mucosa. NECK: Trach site looks ok. Neck is supple RESPIRATORY: decreased at the bases. GASTROINTESTINAL: Abdomen soft, not distended. He did some grimacing during palpation, but no guarding. PEG site looks okay. No hepatosplenomegaly MUSCULOSKELETAL: No cyanosis No pedal edema. Contracted all 4 extremities. NEUROLOGICAL: Eyes open, Extremities contracted Peripheral IV line sites with no evidence of infection. ; Valdez in place, urine looks clear Assessment & Plan Remarks IMPRESSION Sepsis/SIRS related to aspiration PNA?HCAP. Preceding events seem to be vomiting , ?aspiration, CXR negative however History of PSAE ESBL cath associated UTI. S/P Rx Leukocytosis, reactive due to current problem Previous C diff (+), no treated, improved - has had freq BM reported - will repeat if persistent and liquid Chronic respiratory failure on trach PSAE and ESBL Kleb in sputum in recent past. Chronic encephalopathy with underlying diagnosis of advanced dementia as well as advanced Parkinson's disease. Status post trach Status post gastrostomy tube with no evidence of infection. Stage II sacral decubitus ulcer present on admission. Recommendations Change valdez and send UA from [place] val[place]. Possible colonization. Continue Zosyn IV and Levaquin for now based on last PSAE culture should respond and clinically No further Vanco IV doses needed. Follow cultures Follow clinically. Will treat with a short regimen. d/w RN d/w Trina Saab MD Nov 30, 2015 13:11
[2015-11-30] MEDS: LEVOFLOXACIN 750 MG PREMIX INJ 150 ML IV SCH (16:57)
[2015-11-30 19:24] LABS: POTASSIUM 5.6 MEQ/L (3.5-5.1)
[2015-11-30] MEDS: RESP: ALBUTEROL 2.5 MG/3 ML NEB (PRN) NEB (20:21)
[2015-12-01] VITALS (10 sets, daily range): BP systolic 118–126; BP diastolic 76–90; PULSE 81–97; RESP 21–28; TEMP 97.9–98.7; O2SAT 94–100
[2015-12-01] MEDS: PIPERACIL-TAZO 4.5 GM PREMIX 100 ML IV SCH ×4 (01:19→17:16)
[2015-12-01] MEDS: ARTIFICIAL TEARS OPTH SOLN 15 ML BTL EACH EYE SCH ×3 (01:20→17:16)
[2015-12-01] MEDS: HYDROCORTISONE SOD SUCCINATE 100 MG VIAL IV PUSH SCH ×4 (01:20→17:17)
[2015-12-01] MEDS: ENOXAPARIN SODIUM 40 MG/0.4 ML SYRINGE SQ SCH (01:21)
[2015-12-01] MEDS: GABAPENTIN 300 MG CAP G-TUBE SCH ×3 (01:21→22:29)
[2015-12-01] MEDS: OLANZapine 5 MG TAB GT SCH ×2 (01:21→22:30)
[2015-12-01] MEDS: QUEtiapine FUMARATE 25 MG TAB G-TUBE SCH ×3 (01:22→22:30)
[2015-12-01] MEDS: MIDODRINE 5 MG TAB G-TUBE SCH ×3 (01:22→22:29)
[2015-12-01] MEDS: CARBIDOPA/LEVODOPA 25 MG/100 MG TAB GT SCH ×3 (01:22→17:16)
[2015-12-01] MEDS: CHLORHEXIDINE 0.12% (ORAL KIT) 15 ML CUP MT SCH ×3 (01:23→22:31)
[2015-12-01] MEDS: FREE WATER G-TUBE SCH ×7 (01:23→22:30)
[2015-12-01] MEDS: clonazePAM 1 MG TAB PO SCH ×3 (01:23→17:16)
--- NOTE | 2015-12-01 05:03 | RADRPT ---
EXAM DATE/TIME: 12/01/2015 04:13 [facility] COMPARISON: CHEST SINGLE AP, November 28, 2015, 17:20. INDICATIONS : Short of breath. MEDICAL HISTORY : Hypertension. Gastroesophageal reflux disease. Diabetes mellitus type II. SURGICAL HISTORY : Tracheostomy. ENCOUNTER: Subsequent ACUITY: 4 - 6 days PAIN SCORE: Non-responsive. LOCATION: Bilateral chest FINDINGS: Portable AP view of the chest demonstrates a normal-sized cardiac silhouette. Tracheostomy and right subclavian central line remain present. Patient is significantly rotated. There is bibasilar airspace opacity, left greater than right, with blunting of the left costophrenic sulcus. No pneumothorax is visualized. CONCLUSION: Stable chest x-ray with persistent bilateral lower lung zone airspace consolidation and likely small left pleural effusion. Erlin Barajas MD on December 01, 2015 at 5:01 Board Certified Radiologist. This report was verified electronically.
[2015-12-01 06:26] LABS: AUTOMATED NEUTROPHIL # 8.8 TH/MM3 (1.8-7.7); BASOPHIL % 0.1 % (0.0-2.0); EOSINOPHIL % 0.2 % (0.0-4.0); HEMATOCRIT 28.7 % (39.0-51.0); HEMO FLAGS DIFF FINAL; LYMPH % 5.2 % (9.0-44.0); LYMPHOCYTE # 0.5 TH/MM3 (1.0-4.8); MEAN CELL VOLUME 84.5 FL (80.0-100.0); MEAN CORPUSCULAR HEMOGLOBIN 28.4 PG (27.0-34.0); MEAN CORPUSCULAR HGB CONC 33.6 % (32.0-36.0); MONO % 2.6 % (0.0-8.0); NEUT % 91.9 % (16.0-70.0); PLATELET COUNT 162 TH/MM3 (150-450); RED BLOOD COUNT 3.39 MIL/MM3 (4.50-5.90); RED CELL DISTRIBUTION WIDTH 15.8 % (11.6-17.2); WHITE BLOOD COUNT 9.6 TH/MM3 (4.0-11.0)
[2015-12-01] MEDS: INSULIN NovoLIN REGULAR SUPPLEMENTAL SCALE SQ SCH ×5 (06:44→17:51)
[2015-12-01 07:07] LABS: BICARBONATE 32.8 MEQ/L (21.0-32.0); MAGNESIUM 1.7 MG/DL (1.5-2.5); POTASSIUM 3.8 MEQ/L (3.5-5.1)
[2015-12-01] MEDS: LACTOBACILLUS ACIDOPHILUS TAB PO SCH ×3 (08:53→17:17)
[2015-12-01] MEDS: LANSOPRAZOLE SOLUTAB 30 MG TAB NG SCH (08:54)
[2015-12-01] MEDS: PARoxetine HCL 20 MG TAB G-TUBE SCH (08:54)
[2015-12-01] MEDS: MORPHINE SULFATE 4 MG/ML INJ IV PUSH PRN (08:56)
[2015-12-01] MEDS: SODIUM CHLORIDE 0.9% FLUSH 5 ML FLUSH IVF SCH ×2 (08:56→22:30)
[2015-12-01] MEDS: SODIUM CHLORIDE 0.9% FLUSH 5 ML FLUSH IVF PRN (08:57)
--- NOTE | 2015-12-01 09:36 | HHI.CCPN ---
Subjective Remarks/Hospital Course 06/17: Pt is a 54 yr man with multiple medical problems including Parkinson's disease, advanced dementia, hyponatremia, anxiety, pneumonia, GERD, cognitive disorder, and multidrug resistant UTI- ESBL02/19/15 , who resides in a assisted. Pt by report was found by staff in assisted to be less alert and having respiratory difficultly and fevers. Pt was brought to ED adn placed on ventilator. His workup was inclusive of labs, chest xray and ct head and abd/pelvis. WBC 16.4, +UTI, lactic acid 4, troponin ,0.02, BUN/ cre 18/ 0.76. CT head 06/18/15: diffuse atrophy unchanged. No acute intracranial findings ct abd/ pelvis with IV contrast: 06/18/15 Conclusion: 1. Chronic nonspecific urinary bladder wall thickening. Bladder collapsed with Putnam catheter in place. 2.Chronic bilateral mid to lower zone groundglass opacity. 3. Nonobstructing left renal calculus. 4. Distended rectum Pt admitted and fluid and abx ordered. 06/18: Drowsy, easily arousable. On mechanical ventilation via tracheostomy. Tachypneic. Resting tremor noted. 06/19: Drowsy, arousable. On mechanical ventilation via tracheostomy. 06/20: Drowsy, arousable. Remains on mechanical ventilation via tracheostomy. We'll repeat blood cultures, UA and urine cultures. Fluconazole IV added in view of yeast in urine. 07/06: Reconsulted as patient return to the ventilator on a right ventricular due to tachypnea. Low-grade temperatures. Tolerating tube feeding. Extremity encephalopathic demented patient with difficult neurological examination. 07/07: Status post chest tube placement by IR for right pneumothorax 07/06. Afebrile. Tolerating tube feeds. Positive BM. Currently tachypneic on the ventilator. Does not appear to be any acute distress. 07/08: Afebrile. Tolerating tube feeding. He is comfortable currently on CPAP trials 11/10. Positive BM. 07/09: Afebrile. Tolerating tube feeding. Appears comfortable on T bar. Positive BM. 07/10: Afebrile. Eyes are open. Remained on T piece overnight. Tolerating tube feeding. 07/11: MAXIMUM TEMPERATURE 100. Currently 98.6. Eyes are open. On ACV overnight secondary to "tachypnea and sweating". Switching back to PSV trials today. Goal is T piece during daytime, CPAP at night. 07/12: No acute events overnight. On PSV 15/5 -attempt TP up to 6 hours today. No pneumothorax on chest x-ray 07/13: Placed back on full ventilator support for tachypnea. Otherwise clinically unchanged. No fever today 07/14: Patient was on T piece yesterday evening, placed back on PSV overnight, patient mechanical ventilation this morning. Patient appears to be struggling with mechanical ventilation. Patient placed back on PSV with improvement 07/15: Patient placed back on mechanical ventilation last evening due to respiratory rate. It was indicated patient was tachypnea can the 40s. Patient on mechanical ventilation this time with respiration rate mid 20s. Chest tube still in place without any output, chest x-ray still indicating resolution of pneumothorax. 07/16: Patient seen and examined today. Patient placed back on mechanical ventilation overnight due to respiratory rate. Even on mechanical ventilation patient has respiration rate in the 30s. Patient afebrile, blood pressure stable. Continue vent weaning 07/17: Patient seen and examined. Currently afebrile. Currently on CPAP 15/5 @ 40%. Patient is awake with open mouth resting in bed in no apparent acute distress. Tolerating tube feeding. 2 bowel movements. 07/18: No neurological changes. Afebrile. 2 bowel moments. Tolerating tube feeding. We'll attempt TP trials today. On CPAP since 07/15 07/19 No events overnight. On CPAP with PS: 10, PEEP: 5 and FIO2 35%. Afebrile. On no sedation. 07/20 No events overnight. Tolerating CPAP. Afebrile. 07/21: Remains on CPAP. Attempt T piece trial today. Afebrile. One bowel movement. Tolerating tube feeding. 07/22: Afebrile. Positive BM. Tolerating tube feeding. Noted switched tracheostomy to #6 Shiley cuffed fenestrated. Neurologically unchanged 07/23: Afebrile. Positive BM. Tolerating tube feeding. Questionable leak in exchange trach. Place back on a rate/ACV overnight. Insufflated seems to be doing better at the present time. Will check chest x-ray. Possible he might need #6 XLT versus replacement of chronic #8 Shiley. 07/24: Tolerating TP today, RR in low 30s patient appears comfortable. No acute events overnight 07/25: Remains off the ventilator more than 36 hours now. Intermittently tachypneic probably breathing. Chest x-ray was clear yesterday. No acute events reported overnight. PEG not functioning per RN 08/02: Patient was transferred back to critical care service due to continuing ventilator management, tachypnea. Patient clinical status with no significant change. Patient with low-grade fever 100.2, 08/03: Patient seen and examined today. No significant change in clinical status. Patient still with chronic tachypnea. Patient afebrile now. 08/04: Patient seen and examined today. No change in clinical status. Patient still continues to have chronic tachypnea. Patient afebrile. Continue vent weaning 08/05: Patient seen and examined today. Patient had chest tube removed yesterday , chest x-ray shows redevelopment of pneumothorax. Chest tube replaced. Otherwise, patient still on ventilator with tachypnea. Afebrile 08/06: Patient seen and examined today. Patient went to have chest tube placed, repeat chest x-ray did not indicate any pneumothorax. No overnight events. We' ll need to pursue LTAC placement 08/07 No events overnight. On ventilator via trach. Afebrile. 08/08 Patient tolerated CPAP x4 hrs yesterday. Afebrile. On no sedation. 08/09 No events overnight. Tolerated CPAP x 12 hrs yesterday. Afebrile. 08/10 Patient tolerated TP's x 12 hrs yesterday back on ACV overnight. 08/11 No events overnight, currently on TP's with 40% FIO2. Afebrile. 08/12 On CPAP 10/5. Tolerated Tpiece 3 hours earlier today. Afebrile. 08/13 On CPAP 10/5. Not tolerating CPAP as well over last few days and RT notes challenge with suctioning respiratory secretions adequately. Discussing with healthcare proxy regarding exchange trach to 8.0. 08/14 Nursing and RT staff having continued difficulty suctioning respiratory secretions via 6.0 tracheostomy. KAREN Garcia did not consent to stoma dilation and trach upsize yesterday but said she would call back and let me know but no return call. Contacted again today and left a message. Afebrile. On CPAP 10/5. Brow furrowing on exam, appears to be in pain but pain not localizable. Tolerating tube feeds, had BM yesterday 08/15 Not tolerating CPAP today. Contacted healthcare surrogate again and discussed need for trach change. She consented and trach was dilated and up- sized to 8.0 Distal XLT to facilitate pulmonary toilet and to address volume leak. 08/16 No events overnight. Remains on ventilator via trach. Afebrile. Tolerating TF. 08/17 No events overnight. Afebrile. 08/18 Patient tolerated CPAP x 4 hrs yesterday. Afebrile.On ventilator via trach. 08/19 On CPAP 25/06. Temp max 99.3 08/20 Stenotrophomonas in sputum, started on Levaquin per ID. Temp max 99.8. On CPAP 20/09. Tube feeds were held because PEG was clogged but now PEG is functioning. 08/21 No events overnight. Afebrile. Remains on ventilator via trach. Has been tolerating CPAP trials for last 2 days. 08/22 No events overnight. Afebrile , Has been on CPAP all night with PS: 20, PEEP; 5 and FIO2 35%. 08/23 No events overnight. Remains on CPAP, T:99.9 08/24 No events overnight. On CPAP PS 10, PEEP; 5 and FIO2 35% overnight. Afebrile. 08/25 No events overnight. Afebrile. On CPAP overnight with PS 8, PEEP: 5 and FIO2 35%, afebrile. Tolerating TF. 08/26 Tolerating Tpiece. 08/27 Tolerated Tpiece yesterday and overnight. However this evening desaturated and was placed back on CPAP. Dr. Mistry attempted to update daughter Radha Foreman and discuss his overall poor prognosis for recovery, but call got disconnected midway through call and could not reach her back 08/28 On PSV 10/5 40% today. Afebrile. 08/29 On CPAP overnight. Now on Tpiece 70% per pulmonology. Increased yellow secretions noted. Temp max 99.1 Nursing staff expresses concern that he appears uncomfortable during all nursing care. Called elsa Garcia to update , no answer, left message to call me. 08/30: On CPAP overnight. Currently on T piece at 45%. Currently afebrile. Positive BM. Tolerating tube feeding. 08/31: On CPAP overnight. Will return T piece at 35%. MAXIMUM TEMPERATURE 99.6. 5 bowel movements. Tolerating tube feeds. Neurological examination unchanged. 09/01: Tmax 99.2. Currently afebrile. Currently in TPs at 35%. 7 bowel movement overnight. Tolerating tube feeding. Subjective: 09/19: Ciarra called secondary to aspiration on Gen. medical floor. Transfer to ICU and placed on mechanical ventilation. ABG shows CO2 retention. Etc. revealed no acute cardiac 20 finds however copious message to feed suctioned from trach tube 09/20 No events overnight. Afebrile. On ACV with RR 16, TV 500, PEEP: 5 and FIO2 40%. 09/21 No events overnight. Afebrile. 09/22 No events overnight. Tolerated CPAP all day yesterday with PS 12, PEEP:5 and FIO2 35%. Afebrile. 09/23 No events overnight. On no sedation Tolerated CPAP yesterday. Had T:100.3 last night. 09/24 Patient tolerated TP's x 6 hrs yesterday On CPAP 12/5 with 35% FIO2 overnight. Afebrile. 09/25 No events overnight. On CPAP overnight and TP's during day. Tolerating tube feeds. 10/11 Reconsult: Ciarra was called as patient was found hypotensive with SBP 80' s and tube feeds coming from trach site. Patient is receiving 1L bolus NS and STAT CXR showed mild pulm edema. On arrival to ICU patient was connected to ventilator ( On ACV RR 16, TV 500, PEEP:5 and FIO2 40% with sats 95%. Current BP 125/91 , P:81 10/12 Patient remains on ventilator overnight. Borderline low BP with MAP ranges 67-72. Afebrile. On no sedation. 10/13 Patient is on ventilator via trach, afebrile, WBC trending down. Patient was hypotensive yesterday responded to fluid resuscitation not on any pressors. 10/14: No acute events overnight. WBC count has normalized. Will start SBT as tolerated. CXR in am 10/15 No acute events overnight. Phosphorus low needs replacement. Otherwise neuro exam remains unchanged. remains on CPAP 10/16 Patient remains on ventilator via trach. On no sedation. Afebrile. 10/17 No acute events overnight. On ventilator via trach. Afebrile. 10/18 Tolerates CPAP, but unable to wean further. Otherwise no acute events overnight, remains afebrile 10/19 Patient is on ventilator via trach, UO 175ml in last 7 hrs. Afebrile. Tolerated CPAP x 6 hrs yesterday. 10/20 No acute events overnight. Tolerated CPAP for several hrs yesterday. Afebrile. UO better ( 1275ml in 24hrs). Given 1L NS total yesterday for decrease UO. 10/21 Patient is on ventilator via trach tolerated CPAP for most of day yesterday. Afebrile. Tolerating tube feeds. 10/22 No acute events overnight. Patient was on CPAP all day yesterday. Afebrile. 10/23 Patient tolerated all day yesterday. On ventilator via trach. Afebrile. 10/24 Patient remains on ventilator via trach. Afebrile. 10/25 Remains on vent on PSV 15/5. No acute events overnight. WBC slightly increased 10/26 PSV reduced to 10/5. Required AC/VC support yesterday as patient became tachypneic. No other changes 10/27 no acute changes overnight. Tolerating 10 over 5 PSV. WBC count has normalized, T piece today 10/28: No acute events overnight. Did not tolerate T piece trial yesterday. Tolerated CPAP. No fever 10/29: No acute events reported. Currently on 12 over 5 pressure support, reduced to 8/5. No fever 10/30 No acute events overnight. On CPAP with PS 10, PEEP: 5 and FIO2 35% overnight. Afebrile. 10/31: Remains on T piece since yesterday. 11/01: Was on T piece during day and C Pap at night. 11/01: Remains on T piece since yesterday morning. 11/27 Reconsult for sepsis, hypotension. Patient became hypotensive with SBP 80's given 3L crystalloids. T: 96.1 last night. Lactic acid 7.1 from 2.8. CXR this morning showed no acute disease. Remains unresponsive on TP's with 35% FIO2. 11/28 Patient is off Levophed, on TP's with 28 % FIO2. Remains unresponsive. Lactic acid resolved 1.4 last night. 11/29 Patient remains off pressor on TP's with good sats. BP borderline low. MAP 68 mmHg 11/30 Patient is on TP's with 70% FIO2 and sats 97-98%, afebrile. Objective - Vital Signs Date Time Temp Pulse Resp B/P Pulse Ox O2 Delivery O2 Flow Rate FiO2 12/01/15 06:00 81 12/01/15 04:00 98.5 22 126/90 100 12/01/15 04:00 T-Piece 70 11/30/15 22:19 5.00 Intake and Output 11/30/15 11/30/15 11/30/15 07:59 15:59 23:59 Intake Total 900 ml 1340 ml 1155 ml Output Total 300 ml 400 ml 300 ml Balance 600 ml 940 ml 855 ml Result Diagram: 12/01/15 0500 12/01/15 0500 Other Results Laboratory Tests Test 11/30/15 12/01/15 17:00 05:00 Potassium Level 5.6 MEQ/L 3.8 MEQ/L Phosphorus Level 3.6 MG/DL 1.7 MG/DL White Blood Count 9.6 TH/MM3 Red Blood Count 3.39 MIL/MM3 Hemoglobin 9.6 GM/DL Hematocrit 28.7 % Mean Corpuscular Volume 84.5 FL Mean Corpuscular Hemoglobin 28.4 PG Mean Corpuscular Hemoglobin 33.6 % Concent Red Cell Distribution Width 15.8 % Platelet Count 162 TH/MM3 Mean Platelet Volume 9.1 FL Neutrophils (%) (Auto) 91.9 % Lymphocytes (%) (Auto) 5.2 % Monocytes (%) (Auto) 2.6 % Eosinophils (%) (Auto) 0.2 % Basophils (%) (Auto) 0.1 % Neutrophils # (Auto) 8.8 TH/MM3 Lymphocytes # (Auto) 0.5 TH/MM3 Monocytes # (Auto) 0.3 TH/MM3 Eosinophils # (Auto) 0.0 TH/MM3 Basophils # (Auto) 0.0 TH/MM3 CBC Comment DIFF FINAL Differential Comment Sodium Level 141 MEQ/L Chloride Level 103 MEQ/L Carbon Dioxide Level 32.8 MEQ/L Anion Gap 5 MEQ/L Blood Urea Nitrogen 9 MG/DL Creatinine 0.38 MG/DL Estimat Glomerular Filtration 239 ML/MIN Rate Random Glucose 135 MG/DL Calcium Level 8.5 MG/DL Magnesium Level 1.7 MG/DL Imaging Last Impressions Chest X-Ray 12/01/15 0600 Signed Impressions: Service Date/Time: Tuesday, December 01, 2015 04:13 - CONCLUSION: Stable chest x-ray with persistent bilateral lower lung zone airspace consolidation and likely small left pleural effusion. Erlin Barajas MD Abdomen X-Ray 11/26/15 0000 Signed Impressions: Service Date/Time: November 12:34 - CONCLUSION: 1. Nonobstructive bowel gas pattern. 2. Stable position of gastrostomy tube. Multiple surgical screws secure the proximal left femur. 3. No obvious pneumoperitoneum on the single projection provided. Scott Goode MD Upper Extremity Ultrasound 10/13/15 0000 Signed Impressions: Service Date/Time: Tuesday, October 13, 2015 09:51 - CONCLUSION: 1. No evidence of deep venous thrombosis. John Anderson MD Renal Ultrasound 10/07/15 0000 Signed Impressions: Service Date/Time: Wednesday, October 07, 2015 18:29 - CONCLUSION: 1. No acute findings. 3.6 cm left renal cyst. Putnam catheter in bladder. Amaury Ellsworth MD Tunnelled Chest Tube Removal 08/05/15 1100 Signed Impressions: Service Date/Time: Wednesday, August 05, 2015 11:00 - CONCLUSION: Uncomplicated chest tube removal. Blaine Jackson MD Chest Tube Change 07/31/15 0000 Signed Impressions: Service Date/Time: Friday, July 31, 2015 14:34 - CONCLUSION: Uncomplicated reposition of previously placed chest tube as above. Blaine Jackson MD Chest Tube Insertion 07/30/15 0000 Signed Impressions: Service Date/Time: July 14:50 - CONCLUSION: Uncomplicated chest tube placement as above. Blaine Jackson MD Catheter Change 07/27/15 0000 Signed Impressions: Service Date/Time: Monday, July 27, 2015 14:43 - CONCLUSION: Uncomplicated gastrostomy tube exchange as above. Blaine Jackson MD Chest CT 07/11/15 0000 Signed Impressions: Service Date/Time: Saturday, July 11, 2015 09:49 - CONCLUSION: Scattered patchy densities significantly improved from previous study. Tiny anterior right basilar pneumothorax. Right-sided chest tube in good position. Néstor Matamoros MD Head CT 06/18/151902 Signed Impressions: Service Date/Time: June 19:31 - CONCLUSION: Diffuse atrophy unchanged. No acute intracranial findings. Kush Briscoe MD Abdomen/Pelvis CT 06/18/151902 Signed Impressions: Service Date/Time: June 19:36 - CONCLUSION: 1. Chronic nonspecific urinary bladder wall thickening. Bladder collapsed with Putnam catheter in place. 2. Chronic bilateral mid to lower lung zone groundglass opacity. 3. Nonobstructing left renal calculus. 4. Distended rectum. Kush Briscoe MD Objective Remarks GENERAL: 54-year-old male, cachectic, debilitated with contractures on T piece. HEENT: NC/AT. PERRL. OP without erythema or exudates NECK: No JVD. Supple. 8.0 Distal XLT trach in place CARDIAC: RRR. S1/S2. No S4. No murmurs, clicks gallops or rubs. LUNGS: B/L equal air entry. On T piece. ABDOMEN: S/NT/ND. Positive BS EXTREMITIES: 1+ dependent pedal edema. Contractures and deformities of fingers. Stage III coccyx/sacral decubitus ulcer NEUROLOGY: Significant contractures of bilateral lower extremity, upper extremities. Eyes open spontaneously. Temporal and facial muscle wasting, muscular atrophy all extremities. Procedures 07/26- PEG replacement 07/29- right pigtail catheter placement for new pneumothorax Date of Insertion: Oct 05, 2015 A/P Assessment and Plan Neuro/Psych: Parkinson's disease Cognitive disorder Chronic encephalopathy Dementia Depression Contractures On no sedation. CT head 06/18/15: diffuse atrophy unchanged. No acute intracranial findings Continue Sinemet 25/100 q8 via PEG, Seroquel 50 mg twice a day, olanzapine 5 mg a night, Klonopin 2 mg every 8 hours, Paxil 20 daily Resp: Acute on chronic respiratory failure Chronic trach #8 Shiley distal XLT Pneumonia, aspiration (ESBL Klebsiella and Pseudomonas pneumonia) Right pneumothorax status post pigtail catheter 2 (resolved) Continue with oxygen keep sat >92% Bronchodilators, pulm toilet, trach care Pulmonary Dr. Restrepo following. Decrease HC 50mg Q12 Exchanged to 8 Distal XLT on 08/15 to facilitate suctioning, trach care. Cardiac History of orthostasis History of CAD History dyslipidemia History of hypertension Continue Midodrine 5 mg BID. Off Levophed Monitor HR and BP keep MAP>65mmHg. Lactic acid resolved 1.4 11/27 Decrease steroids- HC 50mg IV Q12, PO prednisone on hold GI: Chronic moderate protein energy malnutrition Dysphagia Status post PEG Internal hemorrhoids Gastroesophageal reflux disease - TF Jevity 1.5 @ 60ml/hr, on Reglan 5mg Q8 PRN for high residuals. - On Prevacid 30 mg per PEG tube daily for GERD - 11/25 KUB abdomen: Nonobstructive bowel gas pattern. Stable position of gastrostomy tube. FEN/Renal: Nonobstructing left renal calculus - Monitor renal function, I/O's. electrolytes replacement per protocol. -Diurese with Bumex 1mg x1, Will need Phos replacement today ID: Aspiration pneumonia Cele UTI 11/26 Urine cx: Kleb ESBL 11/26 sputum cx: Kleb ESBL, Pseudomonas 11/13 C-diff PCR positive 11/18 Sputum: Pseudomonas 10/19 Sputum: Pseudomonas- likely colonized 10/19 urine cx: Yeast species 10/12 BC: NGTD 10/11 BC: NGTD 10/11 Urine cx: C. Tropicalis 10/11 Sputum: ESBL Klebsiella and Pseudomonas pneumonia 10/10 Urine: C. Tropicalis 09/21 Urine cx: Pseudomonas ? colonized 09/19 Sputum cx: Pseudomonas, Kleb pneumonia ESBL pos Candiduria (cele tropicalis urine cx 08/17) ESBL positive Klebsiella/Pseudomonas pneumonia Stenotrophomonas in sputum 08/17 MRSA colonization Sepsis UTI Klebsiella ESBL positive (has been treated) Continue with abx ( Zosyn, Levaquin) Vanco 1gram x1 dose 11/27, monitor for signs of infections ( Fever, WBC) ID service is following, follow up on cultures Endo: On SSI (Low) with accuchecks Q6. Heme Normocytic Anemia - Monitor CBC MSK Bilateral lower extremity Contractures Stage III sacral decubitus present on admission - Wound care and PT on case Prophylaxis - GI - Prevacid - DVT - SCDs/ Lovenox. ACCESS: PIVs Right subclavian CVP placed 11/27 Palliative care is following Level 3 Antonio Carr MD Dec 01, 2015 09:36
[2015-12-01] MEDS ORDERED: BUMETANIDE INJ 1 MG/4 ML VIAL IV PUSH ONE (09:45)
--- NOTE | 2015-12-01 10:27 | HHI.HCPN ---
Palliative care received call from patient's daughter, Radha, stating she found a potential accepting facility near her. CM notified of this information. Sulma Taylor [employer], [employer] Dec 01, 2015 10:27
[2015-12-01] MEDS: COLLAGENASE OINT 30 GM TUBE TOP SCH (12:24)
--- NOTE | 2015-12-01 13:14 | HHI.HCPN ---
Reason for visit a. To assist with evaluation and management of symptoms including: secretions, dyspnea. b. To assist medical decision maker(s) with: better understanding of current medical conditions; weighing benefits/burdens of medical treatment options; making medical treatment decisions. . (ALOK JONES) Subjective/Interval History Patient seen and examined in ICU. No family at bedside. Spoke with daughter, Radha via telephone medical update provided. She again reiterates that she desires continued aggressive care short of NO CODE/ NO mech vent. She wants him to be allowed to pass peacefully and naturally when it is his time. She understands he will continue to have infections and will from complications related to such at some time. She asks to speak with Capri, manager case management regarding financial/ placement questions, number provided. Patient was transferred back [place] [facility] on 11/28/15 for hypotension. Patient on oxygen via t-piece, FiO2 70%. Afebrile. Eyes open, does not follow commands. WBC now 9.6. Last Albumin 2.4, tolerating TF at 60cc/hr. 11/27/15 - Sputum positive ESBL positive Klebsiella pneumoniae (also in urine) and pseudomonas species, on Levaquin and Zosyn. ID , Dr. Moss following. Nursing pain level scores are "2" PRN Morphine x 1 dose on 12/01/15 and Russell x 1 dose on 11/30/15. Patient does not appear painful during my visit. From Dr. Pickard's initial palliative care consultation of 07/15/15... 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 The patient has had multiple hospitalizations which included stays in the intensive care unit for various infections. He had a urinary tract infection with multidrug resistant ESBL on 02/19/15. He was last MRSA positive on . FPC notes from the facility indicate that his current baseline is: * Bedbound status * Unable to communicate * NPO -- on tube feedings at 85 cc /hr * Dependent for all ADLs In the emergency Department, initial vital signs were as follows > temperature 100.9; pulse 98; respiratory rate 38; blood pressure 104/61; pulse oximetry 99% on room air via trach collar. Initial physical examination the emergency department revealed the following > patient was frail and chronically ill-appearing. Skin showed no obvious wounds. Head, eyes, ENT, neck, cardiovascular, respiratory, gastrointestinal exams were unremarkable. Neurologically, the patient was unable to answer questions or respond or follow commands. Initial diagnostic testing revealed the following: * CBC showed WBC 16.4; hemoglobin 11.3; platelet count 176 * Coagulation profile showed PT 11.4; INR 1.1; PTT 29.4 * Chemistry profile showed sodium 141; potassium 4.5; chloride 105; CO2 27.4; anion gap 9; BUN 21; creatinine 0.85; estimated GFR 95; glucose 116; calcium 9.6 * Liver function tests showed total bilirubin 0.6; AST 23; ALT 38; alkaline phosphatase 59; total protein 7.5; albumen 3.2 * Urinalysis was remarkable for large occult blood; large leukocyte esterase; few bacteria; few yeast with hyphae; few budding yeast. * Arterial blood gases on trach mask at 40% showed pH 7.53; PCO2 33; PaO2 108; bicarbonate 27; base excess 4.2 * Chest x-ray showed no acute cardiopulmonary disease * Head CT showed diffuse atrophy unchanged from prior exam. * CT of the abdomen and pelvis showed chronic nonspecific urinary bladder wall thickening; bladder collapsed with Valdez catheter in place; chronic bilateral mid to lower lung zone groundglass opacity; nonobstructing left renal calculus; distended rectum. * The emergency room doctor diagnosed severe sepsis. The patient was given 2 L of IV fluid and broad-spectrum antibiotic-coated verge in the emergency department. Cultures were obtained. Valdez catheter was changed. As the patient was markedly tachypneic with increased work of breathing and use of accessory muscles during his stay in the emergency department. He was placed on CPAP and subsequently intubated and placed on mechanical ventilation. Critical care was consulted and the patient was admitted to the intensive care unit. Further examination revealed a stage II 6 x 2 cm sacral wound. Urine culture on admission grew out Heena of 2 different species. Sputum culture grew out Klebsiella pneumonia ESBL positive as well as pseudomonas. Blood culture grew out coag-negative staph and staph epidermidis. Both infectious disease and pulmonology were consulted. The patient slowly improved, was extubated, and critical care signed off on . However, on 07/06 the patient had to be placed back on the ventilator. A right sided pneumothorax was noted and patient underwent chest tube placement by interventional radiology. Pneumothorax has appeared to resolve on most recent chest x-ray. Sputum, blood, and urine cultures from 07/07/15 are all negative. White blood count is currently down to 7. Hemoglobin is 10.6. Albumen is suboptimal at 3.0. Renal function is normal. He is currently off anti-biotics. Current pain regimen includes the following: * Fentanyl patch; 50 g per hour * Morphine sulfate 5 mg sublingually or via the tube every 4 hours when necessary (he has been using 1-2 doses of this per day) The patient was tolerating CPAP earlier today and has since been removed from the ventilator and is on a T-piece at 40% FI02. At time of my visit, eyes are open. He intermittently tracks. He cannot follow commands and makes no attempt to interact. . Family/friend interactions See interval note. (ALOK JONES) Advance Directives Living Will: Never completed Health Care Surrogate: Copy in medical record Durable Power of Senior Qualitative Researcher: Never completed (ALOK JONES) Advance Directive Specifics Date completed: Patient visited Scott Mack, Senior Qualitative Researcher in March and again in November 2014. The patient was encouraged to complete Advance directive documents but never did them. Dr. Pickard personally called Mr. Mack ([phone]) to check for advance directives. Health Care Surrogate(s): The patient completed a health care surrogate document dated 09/02/14 desigating his friend Bola Nolasco as surrogate. Mr. Nolasco was not aware of this and has declined serving in that capacity. The patient has an adult daughter -- Radha Foreman who is willing to serve as health care proxy decision maker. Patient's mother, Teresa is aware. Significant change in goals: Spoke with daughter, Radha via telephone medical update provided. She again reiterates that she desires continued aggressive care short of NO CODE/ NO mech vent. She wants him to be allowed to pass peacefully and naturally when it is his time. She understands he will continue to have infections and will from complications related to such at some time. She asks to speak with Capri, manager case management regarding financial/ placement questions, number provided. (ALOK JONES) Objective Vital Signs Date Time Temp Pulse Resp B/P Pulse Ox O2 Delivery O2 Flow Rate FiO2 12/01/15 10:52 99 T-piece 70 12/01/15 06:00 81 12/01/15 04:00 83 12/01/15 04:00 98.5 83 22 126/90 100 12/01/15 04:00 100 T-Piece 70 12/01/15 02:00 89 12/01/15 00:00 83 12/01/15 00:00 97 T-Piece 70 12/01/15 00:00 98.7 83 21 118/76 97 11/30/15 22:19 94 T-piece 5.00 70 11/30/15 22:00 97 11/30/15 21:15 94 T-Piece 70 11/30/15 20:41 96 T-piece 5.00 70 11/30/15 20:41 94 T-piece 5.00 50 11/30/15 20:00 71 11/30/15 20:00 95 T-Piece 50 11/30/15 20:00 98.2 71 21 108/74 95 11/30/15 19:00 95 T-Piece 70 11/30/15 18:00 75 11/30/15 17:58 26 11/30/15 16:00 66 11/30/15 16:00 97.8 6 20 124/77 90 11/30/15 16:00 90 T-Piece 70 11/30/15 14:00 65 11/30/15 12:18 25 11/30/15 12:00 66 11/30/15 12:00 97.2 62 16 92/64 100 11/30/15 12:00 100 T-Piece 70 Intake & Output 12/01/15 12/01/15 07:00 19:00 Intake Total 2270 ml Output Total 625 ml Balance 1645 ml Intake Oral 0 ml IV Total 659 ml Tube Feeding 911 ml Other 700 ml Output Urine Total 625 ml # Bowel Movements 1 Physical Exam CONSTITUTIONAL/GENERAL: This is a thin, pale, contracted, chronically ill appearing [facility]. Unresponsive. TUBES/LINES/DRAINS: Trach, valdez cath, PEG tube; scd's SKIN: No jaundice, rashes, or lesions. Sacral wound, not visualized today. NECK: Tracheostomy to t-piece. CARDIOVASCULAR: Regular rate and rhythm without murmurs, gallops, or rubs. No JVD. Peripheral pulses symmetric. RESPIRATORY/CHEST: Scattered course breath sounds. Breath sounds equal bilaterally and diminished at bases. GASTROINTESTINAL: Abdomen soft, non-tender, nondistended. No guarding. Bowel sounds present. GENITOURINARY: Without palpable bladder distension. catheter in place. MUSCULOSKELETAL: Contractures noted. No mottling. NEUROLOGICAL: Eyes open, not tracking or following commands. Unresponsive. No spontaneous movements seen. PSYCHIATRIC: Eyes open. . (ALOK JONES-Wen) Diagnostic Tests Laboratory Laboratory Tests Test 11/28/15 11/28/15 11/29/15 11/30/15 12:20 19:58 04:00 03:00 White Blood Count 11.3 TH/MM3 8.7 TH/MM3 9.8 TH/MM3 (4.0-11.0) (4.0-11.0) (4.0-11.0) Red Blood Count 3.91 MIL/MM3 3.32 MIL/MM3 3.17 MIL/MM3 (4.50-5.90) (4.50-5.90) (4.50-5.90) Hemoglobin 11.0 GM/DL 9.3 GM/DL 8.9 GM/DL (13.0-17.0) (13.0-17.0) (13.0-17.0) Hematocrit 33.8 % 28.5 % 27.0 % (39.0-51.0) (39.0-51.0) (39.0-51.0) Mean Corpuscular Volume 86.3 FL 86.0 FL 85.2 FL (80.0-100.0) (80.0-100.0) (80.0-100.0) Mean Corpuscular Hemoglobin 28.0 PG 28.1 PG 28.1 PG (27.0-34.0) (27.0-34.0) (27.0-34.0) Mean Corpuscular Hemoglobin 32.4 % 32.7 % 32.9 % Concent (32.0-36.0) (32.0-36.0) (32.0-36.0) Red Cell Distribution Width 15.8 % 16.0 % 15.6 % (11.6-17.2) (11.6-17.2) (11.6-17.2) Platelet Count 175 TH/MM3 163 TH/MM3 157 TH/MM3 (150-450) (150-450) (150-450) Mean Platelet Volume 9.5 FL 9.7 FL 10.1 FL (7.0-11.0) (7.0-11.0) (7.0-11.0) Neutrophils (%) (Auto) 85.9 % 92.4 % 91.7 % (16.0-70.0) (16.0-70.0) (16.0-70.0) Lymphocytes (%) (Auto) 5.4 % 3.7 % 4.8 % (9.0-44.0) (9.0-44.0) (9.0-44.0) Monocytes (%) (Auto) 7.8 % (0.0-8.0) 3.6 % (0.0-8.0) 3.2 % (0.0-8.0) Eosinophils (%) (Auto) 0.6 % (0.0-4.0) 0.0 % (0.0-4.0) 0.0 % (0.0-4.0) Basophils (%) (Auto) 0.3 % (0.0-2.0) 0.3 % (0.0-2.0) 0.3 % (0.0-2.0) Neutrophils # (Auto) 9.7 TH/MM3 8.0 TH/MM3 9.0 TH/MM3 (1.8-7.7) (1.8-7.7) (1.8-7.7) Lymphocytes # (Auto) 0.6 TH/MM3 0.3 TH/MM3 0.5 TH/MM3 (1.0-4.8) (1.0-4.8) (1.0-4.8) Monocytes # (Auto) 0.9 TH/MM3 0.3 TH/MM3 0.3 TH/MM3 (0-0.9) (0-0.9) (0-0.9) Eosinophils # (Auto) 0.1 TH/MM3 0.0 TH/MM3 0.0 TH/MM3 (0-0.4) (0-0.4) (0-0.4) Basophils # (Auto) 0.0 TH/MM3 0.0 TH/MM3 0.0 TH/MM3 (0-0.2) (0-0.2) (0-0.2) CBC Comment DIFF FINAL DIFF FINAL DIFF FINAL Differential Comment Prothrombin Time 11.8 SEC (9.8-11.4) Prothromb Time International 1.1 RATIO Ratio Sodium Level 143 MEQ/L 146 MEQ/L 142 MEQ/L (136-145) (136-145) (136-145) Potassium Level 2.7 MEQ/L 4.4 MEQ/L 2.8 MEQ/L (3.5-5.1) (3.5-5.1) (3.5-5.1) Chloride Level 109 MEQ/L 114 MEQ/L 105 MEQ/L (98-107) (98-107) (98-107) Carbon Dioxide Level 23.9 MEQ/L 24.4 MEQ/L 32.5 MEQ/L (21.0-32.0) (21.0-32.0) (21.0-32.0) Anion Gap 10 MEQ/L (5-15) 8 MEQ/L (5-15) 5 MEQ/L (5-15) Blood Urea Nitrogen 11 MG/DL (7-18) 10 MG/DL (7-18) 10 MG/DL (7-18) Creatinine 0.56 MG/DL 0.43 MG/DL 0.36 MG/DL (0.60-1.30) (0.60-1.30) (0.60-1.30) Estimat Glomerular Filtration 153 ML/MIN 207 ML/MIN 254 ML/MIN Rate (>89) (>89) (>89) Random Glucose 102 MG/DL 114 MG/DL 155 MG/DL (74-106) (74-106) (74-106) Lactic Acid Level 4.6 mmol/L 1.4 mmol/L (0.4-2.0) (0.4-2.0) Calcium Level 8.2 MG/DL 8.6 MG/DL 7.9 MG/DL (8.5-10.1) (8.5-10.1) (8.5-10.1) Phosphorus Level 2.7 MG/DL 1.4 MG/DL (2.5-4.9) (2.5-4.9) Magnesium Level 1.7 MG/DL 1.6 MG/DL (1.5-2.5) (1.5-2.5) Test 11/30/15 12/01/15 17:00 05:00 Potassium Level 5.6 MEQ/L 3.8 MEQ/L (3.5-5.1) (3.5-5.1) Phosphorus Level 3.6 MG/DL 1.7 MG/DL (2.5-4.9) (2.5-4.9) White Blood Count 9.6 TH/MM3 (4.0-11.0) Red Blood Count 3.39 MIL/MM3 (4.50-5.90) Hemoglobin 9.6 GM/DL (13.0-17.0) Hematocrit 28.7 % (39.0-51.0) Mean Corpuscular Volume 84.5 FL (80.0-100.0) Mean Corpuscular Hemoglobin 28.4 PG (27.0-34.0) Mean Corpuscular Hemoglobin 33.6 % Concent (32.0-36.0) Red Cell Distribution Width 15.8 % (11.6-17.2) Platelet Count 162 TH/MM3 (150-450) Mean Platelet Volume 9.1 FL (7.0-11.0) Neutrophils (%) (Auto) 91.9 % (16.0-70.0) Lymphocytes (%) (Auto) 5.2 % (9.0-44.0) Monocytes (%) (Auto) 2.6 % (0.0-8.0) Eosinophils (%) (Auto) 0.2 % (0.0-4.0) Basophils (%) (Auto) 0.1 % (0.0-2.0) Neutrophils # (Auto) 8.8 TH/MM3 (1.8-7.7) Lymphocytes # (Auto) 0.5 TH/MM3 (1.0-4.8) Monocytes # (Auto) 0.3 TH/MM3 (0-0.9) Eosinophils # (Auto) 0.0 TH/MM3 (0-0.4) Basophils # (Auto) 0.0 TH/MM3 (0-0.2) CBC Comment DIFF FINAL Differential Comment Sodium Level 141 MEQ/L (136-145) Chloride Level 103 MEQ/L (98-107) Carbon Dioxide Level 32.8 MEQ/L (21.0-32.0) Anion Gap 5 MEQ/L (5-15) Blood Urea Nitrogen 9 MG/DL (7-18) Creatinine 0.38 MG/DL (0.60-1.30) Estimat Glomerular Filtration 239 ML/MIN Rate (>89) Random Glucose 135 MG/DL (74-106) Calcium Level 8.5 MG/DL (8.5-10.1) Magnesium Level 1.7 MG/DL (1.5-2.5) (ALOK JONESC) Result Diagram: 12/01/15 0500 12/01/15 0500 Microbiology Microbiology Date/Time Procedure Status Source Growth 11/28/15 00:50 Aerobic Blood Culture - Preliminary Resulted Blood Line NO GROWTH IN 3 DAYS 11/28/15 00:50 Anaerobic Blood Culture - Preliminary Resulted Blood Line NO GROWTH IN 3 DAYS 11/27/15 18:00 Gram Stain - Final Resulted Sputum Endotracheal 11/27/15 18:00 Sputum Culture - Preliminary Resulted Klebsiella Pneumoniae Esbl Pos Pseudomonas Species 11/27/15 15:30 Urine Culture - Final Complete Urine Catheterized Urine Klebsiella Pneumoniae Esbl Pos 11/26/15 13:25 Aerobic Blood Culture - Final Complete Blood Peripheral NO GROWTH IN 5 DAYS 11/26/15 13:25 Anaerobic Blood Culture - Final Complete Blood Peripheral NO GROWTH IN 5 DAYS . Imaging Last Impressions Chest X-Ray 12/01/15 0600 Signed Impressions: Service Date/Time: Tuesday, December 01, 2015 04:13 - CONCLUSION: Stable chest x-ray with persistent bilateral lower lung zone airspace consolidation and likely small left pleural effusion. Erlin Barajas MD Abdomen X-Ray 11/26/15 0000 Signed Impressions: Service Date/Time: November 12:34 - CONCLUSION: 1. Nonobstructive bowel gas pattern. 2. Stable position of gastrostomy tube. Multiple surgical screws secure the proximal left femur. 3. No obvious pneumoperitoneum on the single projection provided. Scott Goode MD Upper Extremity Ultrasound 10/13/15 0000 Signed Impressions: Service Date/Time: Tuesday, October 13, 2015 09:51 - CONCLUSION: 1. No evidence of deep venous thrombosis. John Anderson MD Renal Ultrasound 10/07/15 0000 Signed Impressions: Service Date/Time: Wednesday, October 07, 2015 18:29 - CONCLUSION: 1. No acute findings. 3.6 cm left renal cyst. Valdez catheter in bladder. Amaury Ellsworth MD Tunnelled Chest Tube Removal 08/05/15 1100 Signed Impressions: Service Date/Time: Wednesday, August 05, 2015 11:00 - CONCLUSION: Uncomplicated chest tube removal. Blaine Jackson MD Chest Tube Change 07/31/15 0000 Signed Impressions: Service Date/Time: Friday, July 31, 2015 14:34 - CONCLUSION: Uncomplicated reposition of previously placed chest tube as above. Blaine Jackson MD Chest Tube Insertion 07/30/15 0000 Signed Impressions: Service Date/Time: July 14:50 - CONCLUSION: Uncomplicated chest tube placement as above. Blaine Jackson MD Catheter Change 07/27/15 0000 Signed Impressions: Service Date/Time: Monday, July 27, 2015 14:43 - CONCLUSION: Uncomplicated gastrostomy tube exchange as above. Blaine Jackson MD Chest CT 07/11/15 0000 Signed Impressions: Service Date/Time: Saturday, July 11, 2015 09:49 - CONCLUSION: Scattered patchy densities significantly improved from previous study. Tiny anterior right basilar pneumothorax. Right-sided chest tube in good position. Néstor Matamoros MD Head CT 06/18/15 0793 Signed Impressions: Service Date/Time: June 19:31 - CONCLUSION: Diffuse atrophy unchanged. No acute intracranial findings. Kush Briscoe MD Abdomen/Pelvis CT 06/18/15 1903 Signed Impressions: Service Date/Time: June 19:36 - CONCLUSION: 1. Chronic nonspecific urinary bladder wall thickening. Bladder collapsed with Valdez catheter in place. 2. Chronic bilateral mid to lower lung zone groundglass opacity. 3. Nonobstructing left renal calculus. 4. Distended rectum. Kush Briscoe MD . Procedures * Mechanical ventilation * Chest tube placement on right 07/07/15 * Chest tube removal 07/17/15 . (ALOK JONES) Assessment and Plan Disease Oriented Problem List: (1) Acute respiratory failure Comment: 10/13/15 - Halicat for hypotension and tube feeding coming from trach. - Back on mech vent in ICU. . (2) Chronic respiratory failure (3) Septic shock (4) Pneumonia Comment: Aspiration. Repeat cultures pending. . (5) UTI (urinary tract infection) Comment: Repeat culture pending. . (6) Parkinson disease (7) Moderate malnutrition Symptom Scale: (1) Pain 0-10 Scale: 2 Comment: Sources of pain might include wound, prolonged bedbound status, contractures, restraints, valdez, vascular access catheters. Appears comfortable on current regimen. ,l (2) Dyspnea 0-10 Scale: Unable to quantify Comment: On t-piece. . (3) Malnutrition 0-10 Scale: Unable to quantify Comment: Tolerating tube feedings. . (4) Encephalopathy 0-10 Scale: Unable to quantify Comment: Remains unresponsive. 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 Severe dementia. Daughter, mother, and brother are involved. Spiritual: Christianity. Has been a member for the [employer] and members have provided both community support and spiritual support in the past. Legal: No advance directives. Daughter (Radha Foreman) is legal proxy and lives 4 hours away. She can be quite difficult to contact by phone. Ethical issues impacting care: None. . Important Contacts * Radha Foreman (daughter and proxy) [phone] * Teresa Perea (mother -- lives in [place]) [phone] . Prognosis Patient has end stage Parkinson's with end stage dementia. He is a assisted NH resident and has required multiple hospitalizations for sepsis. He is a chronic trach/PEG tube patient with contractures and skin breakdown. Should family continue to want aggressive care, he will continue to go back and forth from facility to hospital until such time that we are no longer able to overcome the sepsis. Patient is hospice eligible whenever family is ready to transition to "comfort measures only." . Code Status: No Code (No cardiac resuscitation, shock, ACLS or mech vent. ) Plan * Decision making: Patient is incapacitated and will not regain capacity. There is no designated health care surrogate. Daughter, Radha Foreman, is legal proxy under [place] statutes but can be hard to contact at times. * NO CODE - No cardiac resuscitation, shock, ACLS or mech vent. * 12/01/15 - Spoke with daughter, Radha via telephone medical update provided. She again reiterates that she desires continued aggressive care short of NO CODE / NO mech vent. She wants him to be allowed to pass peacefully and naturally when it is his time. She understands he will continue to have infections and will from complications related to such at some time. She asks to speak with Capri, manager case management regarding financial/ placement questions, number provided. * Pain: Sources of pain are unclear as patient in non communicative, but would include prolonged bedbound status; tubes and lines; contractures; wound; etc. Current regimen appears to adequate . No further recommendations at this time. * Dyspnea: Dyspnea due to aspiration pneumonia. Has previously been challenging to get off vent. * Malnutrition: Tolerating tube feeds, but albumin remains low. * Palliative care will continue to follow. . . (ALOK JONES) Attestation To help prompt me to consider important information that might be impacting today's encounter and assessment, information from prior notes written by myself or my colleagues may have been "brought forward" into today's note. My signature on this note, however, is an attestation that I personally performed the exam, history, and/or decision-making noted today, and, unless otherwise indicated, the interactions with patient, family, and staff as well as the review of records all occurred today. I also attest that the listed assessment and stated plan reflect my best clinical judgment today based on the combination of historical information, prior notes, and today's exam/ interactions. When time spent is documented, it refers only to time spent today by the signer, or if indicated, combined time spent today by collaborating physician/nurse practitioner. (ALOK JONES) Collaborating MD Comments Chart reviewed. Case discussed with palliative care PAINT STOCK CLERK. Above note reviewed and I concur. . (Pascual Pickard MD) ALOK JONES Dec 01, 2015 12:27 Pascual Pickard MD Dec 31, 2015 16:52
--- NOTE | 2015-12-01 14:55 | HHI.IDPN ---
Subjective Subjective Remarks Chart reviewed. Reconsult for evaluation of septic shock. He well-known to the ID service. Has been treated for multiple infections including pneumonia and UTI. On November 25 patient vomited tube feedings. He subsequently developed more respiratory problem, became hypotensive, and transferred to the intensive care unit. He is not febrile. He is currently on Levophed. His WBC had gone up. Patient currently on tube feedings. He remains on T piece. He is currently on Zosyn, Levaquin, and vancomycin. Infectious disease consultation requested to evaluate the patient with sepsis and shock. Antibiotics Vanco IV Zosyn Levaquin Lines Peripheral IV with no e/o infection Past Medical History reviewed Allergies: Coded Allergies: *MDRO Multi-Drug Resistant Organism (Verified Adverse Reaction, Unknown, 12/01/15) ESBL E. coli (urine) - 02/19/2015; ESBL K. 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 Vital Signs Date Time Temp Pulse Resp B/P Pulse Ox O2 Delivery O2 Flow Rate FiO2 12/01/15 10:52 99 T-piece 70 12/01/15 09:01 20 12/01/15 06:00 81 12/01/15 04:00 83 12/01/15 04:00 98.5 83 22 126/90 100 12/01/15 04:00 100 T-Piece 70 12/01/15 02:00 89 12/01/15 00:00 83 12/01/15 00:00 97 T-Piece 70 12/01/15 00:00 98.7 83 21 118/76 97 11/30/15 22:19 94 T-piece 5.00 70 11/30/15 22:00 97 11/30/15 21:15 94 T-Piece 70 11/30/15 20:41 96 T-piece 5.00 70 11/30/15 20:41 94 T-piece 5.00 50 11/30/15 20:00 71 11/30/15 20:00 95 T-Piece 50 11/30/15 20:00 98.2 71 21 108/74 95 11/30/15 19:00 95 T-Piece 70 11/30/15 18:00 75 11/30/15 17:58 26 11/30/15 16:00 66 11/30/15 16:00 97.8 6 20 124/77 90 11/30/15 16:00 90 T-Piece 70 11/30/15 11/30/15 12/01/15 15:00 23:00 07:00 Intake Total 1340 ml 1155 ml 1115 ml Output Total 400 ml 300 ml 325 ml Balance 940 ml 855 ml 790 ml Intake Oral 0 ml 0 ml 0 ml IV Total 420 ml 317 ml 342 ml Tube Feeding 500 ml 488 ml 423 ml Other 420 ml 350 ml 350 ml Output Urine Total 400 ml 300 ml 325 ml # Bowel Movements 2 0 1 . Laboratory Tests Test 11/30/15 12/01/15 03:00 05:00 White Blood Count 9.8 TH/MM3 9.6 TH/MM3 Red Blood Count 3.17 MIL/MM3 3.39 MIL/MM3 Hemoglobin 8.9 GM/DL 9.6 GM/DL Hematocrit 27.0 % 28.7 % Mean Corpuscular Volume 85.2 FL 84.5 FL Mean Corpuscular Hemoglobin 28.1 PG 28.4 PG Mean Corpuscular Hemoglobin 32.9 % 33.6 % Concent Red Cell Distribution Width 15.6 % 15.8 % Platelet Count 157 TH/MM3 162 TH/MM3 Mean Platelet Volume 10.1 FL 9.1 FL Neutrophils (%) (Auto) 91.7 % 91.9 % Lymphocytes (%) (Auto) 4.8 % 5.2 % Monocytes (%) (Auto) 3.2 % 2.6 % Eosinophils (%) (Auto) 0.0 % 0.2 % Basophils (%) (Auto) 0.3 % 0.1 % Neutrophils # (Auto) 9.0 TH/MM3 8.8 TH/MM3 Lymphocytes # (Auto) 0.5 TH/MM3 0.5 TH/MM3 Monocytes # (Auto) 0.3 TH/MM3 0.3 TH/MM3 Eosinophils # (Auto) 0.0 TH/MM3 0.0 TH/MM3 Basophils # (Auto) 0.0 TH/MM3 0.0 TH/MM3 CBC Comment DIFF FINAL DIFF FINAL Differential Comment Laboratory Tests Test 11/30/15 11/30/15 12/01/15 03:00 17:00 05:00 Sodium Level 142 MEQ/L 141 MEQ/L Potassium Level 2.8 MEQ/L 5.6 MEQ/L 3.8 MEQ/L Chloride Level 105 MEQ/L 103 MEQ/L Carbon Dioxide Level 32.5 MEQ/L 32.8 MEQ/L Anion Gap 5 MEQ/L 5 MEQ/L Blood Urea Nitrogen 10 MG/DL 9 MG/DL Creatinine 0.36 MG/DL 0.38 MG/DL Estimat Glomerular Filtration 254 ML/MIN 239 ML/MIN Rate Random Glucose 155 MG/DL 135 MG/DL Calcium Level 7.9 MG/DL 8.5 MG/DL Phosphorus Level 1.4 MG/DL 3.6 MG/DL 1.7 MG/DL Magnesium Level 1.6 MG/DL 1.7 MG/DL Imaging Last Impressions Chest X-Ray 11/28/15 0000 Signed Impressions: Service Date/Time: Saturday, November 28, 2015 00:21 - CONCLUSION: No acute cardiopulmonary disease. KJeremías Schmid MD Abdomen X-Ray 11/26/15 0000 Signed Impressions: Service Date/Time: November 12:34 - CONCLUSION: 1. Nonobstructive bowel gas pattern. 2. Stable position of gastrostomy tube. Multiple surgical screws secure the proximal left femur. 3. No obvious pneumoperitoneum on the single projection provided. Scott Goode MD Upper Extremity Ultrasound 10/13/15 0000 Signed Impressions: Service Date/Time: Tuesday, October 13, 2015 09:51 - CONCLUSION: 1. No evidence of deep venous thrombosis. John Anderson MD Renal Ultrasound 10/07/15 0000 Signed Impressions: Service Date/Time: Wednesday, October 07, 2015 18:29 - CONCLUSION: 1. No acute findings. 3.6 cm left renal cyst. Putnam catheter in bladder. Amaury Ellsworth MD Tunnelled Chest Tube Removal 08/05/15 1100 Signed Impressions: Service Date/Time: Wednesday, August 05, 2015 11:00 - CONCLUSION: Uncomplicated chest tube removal. Blaine Jackson MD Chest Tube Change 07/31/15 0000 Signed Impressions: Service Date/Time: Friday, July 31, 2015 14:34 - CONCLUSION: Uncomplicated reposition of previously placed chest tube as above. Blaine Jackson MD Chest Tube Insertion 07/30/15 0000 Signed Impressions: Service Date/Time: July 14:50 - CONCLUSION: Uncomplicated chest tube placement as above. Blaine Jackson MD Catheter Change 07/27/15 0000 Signed Impressions: Service Date/Time: Monday, July 27, 2015 14:43 - CONCLUSION: Uncomplicated gastrostomy tube exchange as above. Blaine Jackson MD Chest CT 07/11/15 Signed Impressions: Service Date/Time: Saturday, July 11, 2015 09:49 - CONCLUSION: Scattered patchy densities significantly improved from previous study. Tiny anterior right basilar pneumothorax. Right-sided chest tube in good position. Néstor Matamoros MD Head CT 06/18/151902 Signed Impressions: Service Date/Time: June 19:31 - CONCLUSION: Diffuse atrophy unchanged. No acute intracranial findings. Kush Briscoe MD Abdomen/Pelvis CT 06/18/151902 Signed Impressions: Service Date/Time: June 19:36 - CONCLUSION: 1. Chronic nonspecific urinary bladder wall thickening. Bladder collapsed with Putnam catheter in place. 2. Chronic bilateral mid to lower lung zone groundglass opacity. 3. Nonobstructing left renal calculus. 4. Distended rectum. Kush Briscoe MD Physical Exam GENERAL: Eyes open, ?focusing, not interacting, not SOB, on T-piece, looks diaohoretic SKIN: Cool and moist. No generalized rash. No cyanosis. HEENT: [place] conjunctivae, no icterus, moist mucosa. NECK: Trach site looks ok. Neck is supple RESPIRATORY: decreased at the bases. GASTROINTESTINAL: Abdomen soft, not distended. He did some grimacing during palpation, but no guarding. PEG site looks okay. No hepatosplenomegaly MUSCULOSKELETAL: No cyanosis No pedal edema. Contracted all 4 extremities. NEUROLOGICAL: Eyes open, Extremities contracted Peripheral IV line sites with no evidence of infection. ; Putnam in place, urine looks clear Assessment & Plan Remarks IMPRESSION Sepsis/SIRS related to aspiration PNA?HCAP. Preceding events seem to be vomiting , ?aspiration, CXR negative however History of PSAE ESBL cath associated UTI. S/P Rx Leukocytosis, reactive due to current problem Previous C diff (+), no treated, improved - has had freq BM reported - will repeat if persistent and liquid Chronic respiratory failure on trach PSAE and ESBL Kleb in sputum in recent past. Chronic encephalopathy with underlying diagnosis of advanced dementia as well as advanced Parkinson's disease. Status post trach Status post gastrostomy tube with no evidence of infection. Stage II sacral decubitus ulcer present on admission. Recommendations Continue Zosyn IV (S on culture report) and clinically responding. Start Colistin nebs. Follow cultures Follow clinically. No further Vanco IV doses needed. Will treat with a short regimen. d/w Trina Mazariegos MD Dec 01, 2015 14:55
--- NOTE | 2015-12-01 18:37 | HHI.PR ---
Subjective Remarks Transferred to [facility] for resp Failure and septic shock. Now on a T% bar at FIO2 70%. No vomiting .Now on IV NS On tube feeds. Objective Vital Signs Date Time Temp Pulse Resp B/P Pulse Ox O2 Delivery O2 Flow Rate FiO2 12/01/15 10:52 99 T-piece 70 12/01/15 09:01 20 12/01/15 06:00 81 12/01/15 04:00 83 12/01/15 04:00 98.5 83 22 126/90 100 12/01/15 04:00 100 T-Piece 70 12/01/15 02:00 89 12/01/15 00:00 83 12/01/15 00:00 97 T-Piece 70 12/01/15 00:00 98.7 83 21 118/76 97 11/30/15 22:19 94 T-piece 5.00 70 11/30/15 22:00 97 11/30/15 21:15 94 T-Piece 70 11/30/15 20:41 96 T-piece 5.00 70 11/30/15 20:41 94 T-piece 5.00 50 11/30/15 20:00 71 11/30/15 20:00 95 T-Piece 50 11/30/15 20:00 98.2 71 21 108/74 95 11/30/15 19:00 95 T-Piece 70 I/O 11/30/15 11/30/15 11/30/15 12/01/15 12/01/15 12/01/15 07:00 15:00 23:00 07:00 15:00 23:00 Intake Total 900 ml 1340 ml 1155 ml 1115 ml 1175 ml Output Total 300 ml 400 ml 300 ml 325 ml 2200 ml Balance 600 ml 940 ml 855 ml 790 ml -1025 ml Intake Oral 0 ml 0 ml 0 ml 0 ml 0 ml IV Total 280 ml 420 ml 317 ml 342 ml 210 ml Tube Feeding 420 ml 500 ml 488 ml 423 ml 565 ml Other 200 ml 420 ml 350 ml 350 ml 400 ml Output Urine Total 300 ml 400 ml 300 ml 325 ml 2200 ml # Bowel Movements 0 2 0 1 4 Result Diagram: 12/01/15 0500 12/01/15 0500 Objective Remarks This is a thin white male who is responsive , Lethargic,with a trach tube in place. HEENT: Pupils are equal and reactive to light. few Throat secretions CHEST:Decreased breath sounds, with wheeze and basal crackles. CARDIOVASCULAR: S1 and S2 is normal.No murmur. ABDOMEN: Soft, nondistended. BS +. He has a PEG tube in place. EXTREMITIES: No edema.muscle wasting. NEURO: Alert, and has weak extremities, but moves arms. Skin is dry. Assessment and Plan Assessment and Plan IMPRESSION 1. Chronic Respiratory failure. 2. Sepsis, Aspiration. 3. Shock.Resolved. 4. Tracheobronchitis 5. Parkinson's disease 6. Dementia. 7. Severe Deconditioning. Plan : 1. Continue on T bar FIO2 60 %. CPAP if he desats <90. 2. Nebs qid , duoneb. 3. Resume tube feeds at 30 CC and Keep Head end up 45 degrees 4. Cont prednisone 5 mg daily. 5. Levsin .25 mg tid prn for Secretions 6. Cont Trach toilet and lavage. 8. Chest X ray and BMP. 9. IV NS at 50 CC 10. Antibiotics per ID. Darren Kiser MD Dec 01, 2015 18:37
[2015-12-01] MEDS: RESP: ALBUTEROL 2.5 MG/3 ML NEB (PRN) NEB (20:11)
[2015-12-02] VITALS (15 sets, daily range): BP systolic 118–159; BP diastolic 77–92; PULSE 67–110; RESP 16–20; TEMP 97.9–98.9; O2SAT 91–100
[2015-12-02] MEDS: RESP: COLISTIN 150 MG VIAL NEB SCH ×3 (00:29→15:29)
[2015-12-02] MEDS: CARBIDOPA/LEVODOPA 25 MG/100 MG TAB GT SCH ×3 (01:47→12:25)
[2015-12-02] MEDS: clonazePAM 1 MG TAB PO SCH ×3 (01:47→12:25)
[2015-12-02] MEDS: HYDROCORTISONE SOD SUCCINATE 100 MG VIAL IV PUSH SCH ×2 (01:48→07:23)
[2015-12-02] MEDS: ENOXAPARIN SODIUM 40 MG/0.4 ML SYRINGE SQ SCH (01:48)
[2015-12-02] MEDS: PIPERACIL-TAZO 4.5 GM PREMIX 100 ML IV SCH ×4 (01:49→18:23)
[2015-12-02] MEDS: FREE WATER G-TUBE SCH ×6 (01:49→20:00)
[2015-12-02] MEDS: INSULIN NovoLIN REGULAR SUPPLEMENTAL SCALE SQ SCH ×4 (06:00→18:00)
[2015-12-02 06:05] LABS: AUTOMATED NEUTROPHIL # 11.2 TH/MM3 (1.8-7.7); BASOPHIL % 0.1 % (0.0-2.0); EOSINOPHIL % 0.2 % (0.0-4.0); HEMATOCRIT 31.3 % (39.0-51.0); HEMO FLAGS DIFF FINAL; LYMPH % 7.3 % (9.0-44.0); LYMPHOCYTE # 0.9 TH/MM3 (1.0-4.8); MEAN CELL VOLUME 84.4 FL (80.0-100.0); MEAN CORPUSCULAR HEMOGLOBIN 27.7 PG (27.0-34.0); MEAN CORPUSCULAR HGB CONC 32.8 % (32.0-36.0); MONO % 4.1 % (0.0-8.0); NEUT % 88.3 % (16.0-70.0); PLATELET COUNT 208 TH/MM3 (150-450); RED CELL DISTRIBUTION WIDTH 15.9 % (11.6-17.2); WHITE BLOOD COUNT 12.6 TH/MM3 (4.0-11.0)
--- NOTE | 2015-12-02 06:07 | RADRPT ---
EXAM DATE/TIME: 12/02/2015 05:24 [place] COMPARISON: CHEST SINGLE AP, December 01, 2015, 4:13. INDICATIONS : Infiltrate. MEDICAL HISTORY : None. SURGICAL HISTORY : None. ENCOUNTER: Subsequent ACUITY: 4 - 6 days PAIN SCORE: Non-responsive. LOCATION: Bilateral chest FINDINGS: Portable AP views of the chest demonstrate a normal-sized cardiac silhouette. Tracheostomy and right subclavian central line remain present. Patient is rotated and. There is a stable left basilar opacit y. There is also mild airspace opacity at the right lung base. No pneumothorax is visualized. A G-tub e is present. CONCLUSION: Stable chest x-ray with bibasilar airspace consolidation, left greater than right. A small left effus ion is suspected as well. Erlin Barajas MD on December 02, 2015 at 6:04 Board Certified Radiologist. This report was verified electronically.
[2015-12-02 06:32] LABS: ALKALINE PHOSPHATASE 40 U/L (45-117); ALT (GPT) LESS THAN 6 U/L (12-78); ANION GAP 7 MEQ/L (5-15); AST (GOT) 14 U/L (15-37); BICARBONATE 37.9 MEQ/L (21.0-32.0); BLOOD UREA NITROGEN 11 MG/DL (7-18); CHLORIDE 98 MEQ/L (98-107); GLOMERULAR FILTRATION RATE 182 ML/MIN (>89); MAGNESIUM 1.8 MG/DL (1.5-2.5); POTASSIUM 3.1 MEQ/L (3.5-5.1); SODIUM (NA) 143 MEQ/L (136-145); TOTAL BILIRUBIN ADULT 0.3 MG/DL (0.2-1.0)
[2015-12-02] MEDS: LANSOPRAZOLE SOLUTAB 30 MG TAB NG SCH (09:32)
[2015-12-02] MEDS: SODIUM CHLORIDE 0.9% FLUSH 5 ML FLUSH IVF SCH (09:32)
[2015-12-02] MEDS: QUEtiapine FUMARATE 25 MG TAB G-TUBE SCH (09:32)
[2015-12-02] MEDS: LACTOBACILLUS ACIDOPHILUS TAB PO SCH ×3 (09:32→18:00)
[2015-12-02] MEDS: ARTIFICIAL TEARS OPTH SOLN 15 ML BTL EACH EYE SCH ×3 (09:33→18:22)
[2015-12-02] MEDS: GABAPENTIN 300 MG CAP G-TUBE SCH (09:33)
[2015-12-02] MEDS: MIDODRINE 5 MG TAB G-TUBE SCH (09:33)
[2015-12-02] MEDS: PARoxetine HCL 20 MG TAB G-TUBE SCH (09:33)
[2015-12-02] MEDS: CHLORHEXIDINE 0.12% (ORAL KIT) 15 ML CUP MT SCH (09:34)
--- NOTE | 2015-12-02 10:11 | HHI.CCPN ---
Subjective Remarks/Hospital Course 06/17: Pt is a 54 yr man with multiple medical problems including Parkinson's disease, advanced dementia, hyponatremia, anxiety, pneumonia, GERD, cognitive disorder, and multidrug resistant UTI- ESBL02/19/15 , who resides in a [facility]. Pt by report was found by staff in [facility] to be less alert and having respiratory difficultly and fevers. Pt was brought to ED adn placed on ventilator. His workup was inclusive of labs, chest xray and ct head and abd/pelvis. WBC 16.4, +UTI, lactic acid 4, troponin ,0.02, BUN/ cre 18/ 0.76. CT head 06/18/15: diffuse atrophy unchanged. No acute intracranial findings ct abd/ pelvis with IV contrast: 06/18/15 Conclusion: 1. Chronic nonspecific urinary bladder wall thickening. Bladder collapsed with Putnam catheter in place. 2.Chronic bilateral mid to lower zone groundglass opacity. 3. Nonobstructing left renal calculus. 4. Distended rectum Pt admitted and fluid and abx ordered. 06/18: Drowsy, easily arousable. On mechanical ventilation via tracheostomy. Tachypneic. Resting tremor noted. 06/19: Drowsy, arousable. On mechanical ventilation via tracheostomy. 06/20: Drowsy, arousable. Remains on mechanical ventilation via tracheostomy. We'll repeat blood cultures, UA and urine cultures. Fluconazole IV added in view of yeast in urine. 07/06: Reconsulted as patient return to the ventilator on a right ventricular due to tachypnea. Low-grade temperatures. Tolerating tube feeding. Extremity encephalopathic demented patient with difficult neurological examination. 07/07: Status post chest tube placement by IR for right pneumothorax 07/06. Afebrile. Tolerating tube feeds. Positive BM. Currently tachypneic on the ventilator. Does not appear to be any acute distress. 07/08: Afebrile. Tolerating tube feeding. He is comfortable currently on CPAP trials 11/10. Positive BM. 07/09: Afebrile. Tolerating tube feeding. Appears comfortable on T bar. Positive BM. 07/10: Afebrile. Eyes are open. Remained on T piece overnight. Tolerating tube feeding. 07/11: MAXIMUM TEMPERATURE 100. Currently 98.6. Eyes are open. On ACV overnight secondary to "tachypnea and sweating". Switching back to PSV trials today. Goal is T piece during daytime, CPAP at night. 07/12: No acute events overnight. On PSV 15/5 -attempt TP up to 6 hours today. No pneumothorax on chest x-ray 07/13: Placed back on full ventilator support for tachypnea. Otherwise clinically unchanged. No fever today 07/14: Patient was on T piece yesterday evening, placed back on PSV overnight, patient mechanical ventilation this morning. Patient appears to be struggling with mechanical ventilation. Patient placed back on PSV with improvement 07/15: Patient placed back on mechanical ventilation last evening due to respiratory rate. It was indicated patient was tachypnea can the 40s. Patient on mechanical ventilation this time with respiration rate mid 20s. Chest tube still in place without any output, chest x-ray still indicating resolution of pneumothorax. 07/16: Patient seen and examined today. Patient placed back on mechanical ventilation overnight due to respiratory rate. Even on mechanical ventilation patient has respiration rate in the 30s. Patient afebrile, blood pressure stable. Continue vent weaning 07/17: Patient seen and examined. Currently afebrile. Currently on CPAP 15/5 @ 40%. Patient is awake with open mouth resting in bed in no apparent acute distress. Tolerating tube feeding. 2 bowel movements. 07/18: No neurological changes. Afebrile. 2 bowel moments. Tolerating tube feeding. We'll attempt TP trials today. On CPAP since 07/15 07/19 No events overnight. On CPAP with PS: 10, PEEP: 5 and FIO2 35%. Afebrile. On no sedation. 07/20 No events overnight. Tolerating CPAP. Afebrile. 07/21: Remains on CPAP. Attempt T piece trial today. Afebrile. One bowel movement. Tolerating tube feeding. 07/22: Afebrile. Positive BM. Tolerating tube feeding. Noted switched tracheostomy to #6 Shiley cuffed fenestrated. Neurologically unchanged 07/23: Afebrile. Positive BM. Tolerating tube feeding. Questionable leak in exchange trach. Place back on a rate/ACV overnight. Insufflated seems to be doing better at the present time. Will check chest x-ray. Possible he might need #6 XLT versus replacement of chronic #8 Shiley. 07/24: Tolerating TP today, RR in low 30s patient appears comfortable. No acute events overnight 07/25: Remains off the ventilator more than 36 hours now. Intermittently tachypneic probably breathing. Chest x-ray was clear yesterday. No acute events reported overnight. PEG not functioning per RN 08/02: Patient was transferred back to critical care service due to continuing ventilator management, tachypnea. Patient clinical status with no significant change. Patient with low-grade fever 100.2, 08/03: Patient seen and examined today. No significant change in clinical status. Patient still with chronic tachypnea. Patient afebrile now. 08/04: Patient seen and examined today. No change in clinical status. Patient still continues to have chronic tachypnea. Patient afebrile. Continue vent weaning 08/05: Patient seen and examined today. Patient had chest tube removed yesterday , chest x-ray shows redevelopment of pneumothorax. Chest tube replaced. Otherwise, patient still on ventilator with tachypnea. Afebrile 08/06: Patient seen and examined today. Patient went to have chest tube placed, repeat chest x-ray did not indicate any pneumothorax. No overnight events. We' ll need to pursue LTAC placement 08/07 No events overnight. On ventilator via trach. Afebrile. 08/08 Patient tolerated CPAP x4 hrs yesterday. Afebrile. On no sedation. 08/09 No events overnight. Tolerated CPAP x 12 hrs yesterday. Afebrile. 08/10 Patient tolerated TP's x 12 hrs yesterday back on ACV overnight. 08/11 No events overnight, currently on TP's with 40% FIO2. Afebrile. 08/12 On CPAP 10/5. Tolerated Tpiece 3 hours earlier today. Afebrile. 08/13 On CPAP 10/5. Not tolerating CPAP as well over last few days and RT notes challenge with suctioning respiratory secretions adequately. Discussing with healthcare proxy regarding exchange trach to 8.0. 08/14 Nursing and RT staff having continued difficulty suctioning respiratory secretions via 6.0 tracheostomy. KAREN Garcia did not consent to stoma dilation and trach upsize yesterday but said she would call back and let me know but no return call. Contacted again today and left a message. Afebrile. On CPAP 10/5. Brow furrowing on exam, appears to be in pain but pain not localizable. Tolerating tube feeds, had BM yesterday 08/15 Not tolerating CPAP today. Contacted healthcare surrogate again and discussed need for trach change. She consented and trach was dilated and up- sized to 8.0 Distal XLT to facilitate pulmonary toilet and to address volume leak. 08/16 No events overnight. Remains on ventilator via trach. Afebrile. Tolerating TF. 08/17 No events overnight. Afebrile. 08/18 Patient tolerated CPAP x 4 hrs yesterday. Afebrile.On ventilator via trach. 08/19 On CPAP 25/06. Temp max 99.3 08/20 Stenotrophomonas in sputum, started on Levaquin per ID. Temp max 99.8. On CPAP 20/09. Tube feeds were held because PEG was clogged but now PEG is functioning. 08/21 No events overnight. Afebrile. Remains on ventilator via trach. Has been tolerating CPAP trials for last 2 days. 08/22 No events overnight. Afebrile , Has been on CPAP all night with PS: 20, PEEP; 5 and FIO2 35%. 08/23 No events overnight. Remains on CPAP, T:99.9 08/24 No events overnight. On CPAP PS 10, PEEP; 5 and FIO2 35% overnight. Afebrile. 08/25 No events overnight. Afebrile. On CPAP overnight with PS 8, PEEP: 5 and FIO2 35%, afebrile. Tolerating TF. 08/26 Tolerating Tpiece. 08/27 Tolerated Tpiece yesterday and overnight. However this evening desaturated and was placed back on CPAP. Dr. Mistry attempted to update daughter Radha Foreman and discuss his overall poor prognosis for recovery, but call got disconnected midway through call and could not reach her back 08/28 On PSV 10/5 40% today. Afebrile. 08/29 On CPAP overnight. Now on Tpiece 70% per pulmonology. Increased yellow secretions noted. Temp max 99.1 Nursing staff expresses concern that he appears uncomfortable during all nursing care. Called elsa Garcia to update , no answer, left message to call me. 08/30: On CPAP overnight. Currently on T piece at 45%. Currently afebrile. Positive BM. Tolerating tube feeding. 08/31: On CPAP overnight. Will return T piece at 35%. MAXIMUM TEMPERATURE 99.6. 5 bowel movements. Tolerating tube feeds. Neurological examination unchanged. 09/01: Tmax 99.2. Currently afebrile. Currently in TPs at 35%. 7 bowel movement overnight. Tolerating tube feeding. Subjective: 09/19: Ciarra called secondary to aspiration on Gen. medical floor. Transfer to ICU and placed on mechanical ventilation. ABG shows CO2 retention. Etc. revealed no acute cardiac 20 finds however copious message to feed suctioned from trach tube 09/20 No events overnight. Afebrile. On ACV with RR 16, TV 500, PEEP: 5 and FIO2 40%. 09/21 No events overnight. Afebrile. 09/22 No events overnight. Tolerated CPAP all day yesterday with PS 12, PEEP:5 and FIO2 35%. Afebrile. 09/23 No events overnight. On no sedation Tolerated CPAP yesterday. Had T:100.3 last night. 09/24 Patient tolerated TP's x 6 hrs yesterday On CPAP 12/5 with 35% FIO2 overnight. Afebrile. 09/25 No events overnight. On CPAP overnight and TP's during day. Tolerating tube feeds. 10/11 Reconsult: Ciarra was called as patient was found hypotensive with SBP 80' s and tube feeds coming from trach site. Patient is receiving 1L bolus NS and STAT CXR showed mild pulm edema. On arrival to ICU patient was connected to ventilator ( On ACV RR 16, TV 500, PEEP:5 and FIO2 40% with sats 95%. Current BP 125/91 , P:81 10/12 Patient remains on ventilator overnight. Borderline low BP with MAP ranges 67-72. Afebrile. On no sedation. 10/13 Patient is on ventilator via trach, afebrile, WBC trending down. Patient was hypotensive yesterday responded to fluid resuscitation not on any pressors. 10/14: No acute events overnight. WBC count has normalized. Will start SBT as tolerated. CXR in am 10/15 No acute events overnight. Phosphorus low needs replacement. Otherwise neuro exam remains unchanged. remains on CPAP 10/16 Patient remains on ventilator via trach. On no sedation. Afebrile. 10/17 No acute events overnight. On ventilator via trach. Afebrile. 10/18 Tolerates CPAP, but unable to wean further. Otherwise no acute events overnight, remains afebrile 10/19 Patient is on ventilator via trach, UO 175ml in last 7 hrs. Afebrile. Tolerated CPAP x 6 hrs yesterday. 10/20 No acute events overnight. Tolerated CPAP for several hrs yesterday. Afebrile. UO better ( 1275ml in 24hrs). Given 1L NS total yesterday for decrease UO. 10/21 Patient is on ventilator via trach tolerated CPAP for most of day yesterday. Afebrile. Tolerating tube feeds. 10/22 No acute events overnight. Patient was on CPAP all day yesterday. Afebrile. 10/23 Patient tolerated all day yesterday. On ventilator via trach. Afebrile. 10/24 Patient remains on ventilator via trach. Afebrile. 10/25 Remains on vent on PSV 15/5. No acute events overnight. WBC slightly increased 10/26 PSV reduced to 10/5. Required AC/VC support yesterday as patient became tachypneic. No other changes 10/27 no acute changes overnight. Tolerating 10 over 5 PSV. WBC count has normalized, T piece today 10/28: No acute events overnight. Did not tolerate T piece trial yesterday. Tolerated CPAP. No fever 10/29: No acute events reported. Currently on 12 over 5 pressure support, reduced to 8/5. No fever 10/30 No acute events overnight. On CPAP with PS 10, PEEP: 5 and FIO2 35% overnight. Afebrile. 10/31: Remains on T piece since yesterday. 11/01: Was on T piece during day and C Pap at night. 11/01: Remains on T piece since yesterday morning. 11/27 Reconsult for sepsis, hypotension. Patient became hypotensive with SBP 80's given 3L crystalloids. T: 96.1 last night. Lactic acid 7.1 from 2.8. CXR this morning showed no acute disease. Remains unresponsive on TP's with 35% FIO2. 11/28 Patient is off Levophed, on TP's with 28 % FIO2. Remains unresponsive. Lactic acid resolved 1.4 last night. 11/29 Patient remains off pressor on TP's with good sats. BP borderline low. MAP 68 mmHg 11/30 Patient is on TP's with 70% FIO2 and sats 97-98%, afebrile. 12/01 No acute events overnight. Afebrile. On TP's with 50% FIO2. Objective - Vital Signs Date Time Temp Pulse Resp B/P Pulse Ox O2 Delivery O2 Flow Rate FiO2 12/02/15 08:14 97 T-piece 6.00 50 12/02/15 06:04 84 12/02/15 04:00 98.0 20 125/92 Intake and Output 12/01/15 12/01/15 12/02/15 08:00 16:00 00:00 Intake Total 1115 ml 1175 ml 909 ml Output Total 325 ml 2200 ml 375 ml Balance 790 ml -1025 ml 534 ml Result Diagram: 12/02/15 0500 12/02/15 0500 Other Results Laboratory Tests Test 12/02/15 05:00 White Blood Count 12.6 TH/MM3 Red Blood Count 3.70 MIL/MM3 Hemoglobin 10.2 GM/DL Hematocrit 31.3 % Mean Corpuscular Volume 84.4 FL Mean Corpuscular Hemoglobin 27.7 PG Mean Corpuscular Hemoglobin 32.8 % Concent Red Cell Distribution Width 15.9 % Platelet Count 208 TH/MM3 Mean Platelet Volume 9.1 FL Neutrophils (%) (Auto) 88.3 % Lymphocytes (%) (Auto) 7.3 % Monocytes (%) (Auto) 4.1 % Eosinophils (%) (Auto) 0.2 % Basophils (%) (Auto) 0.1 % Neutrophils # (Auto) 11.2 TH/MM3 Lymphocytes # (Auto) 0.9 TH/MM3 Monocytes # (Auto) 0.5 TH/MM3 Eosinophils # (Auto) 0.0 TH/MM3 Basophils # (Auto) 0.0 TH/MM3 CBC Comment DIFF FINAL Differential Comment Sodium Level 143 MEQ/L Potassium Level 3.1 MEQ/L Chloride Level 98 MEQ/L Carbon Dioxide Level 37.9 MEQ/L Anion Gap 7 MEQ/L Blood Urea Nitrogen 11 MG/DL Creatinine 0.48 MG/DL Estimat Glomerular Filtration 182 ML/MIN Rate Random Glucose 132 MG/DL Calcium Level 8.4 MG/DL Phosphorus Level 2.0 MG/DL Magnesium Level 1.8 MG/DL Total Bilirubin 0.3 MG/DL Aspartate Amino Transf 14 U/L (AST/SGOT) Alanine Aminotransferase LESS THAN 6 U/L (ALT/SGPT) Alkaline Phosphatase 40 U/L Total Protein 5.7 GM/DL Albumin 2.4 GM/DL Imaging Last Impressions Chest X-Ray 12/02/15 0600 Signed Impressions: Service Date/Time: Wednesday, December 02, 2015 05:24 - CONCLUSION: Stable chest x-ray with bibasilar airspace consolidation, left greater than right. A small left effusion is suspected as well. Erlin Barajas MD Abdomen X-Ray 11/26/15 0000 Signed Impressions: Service Date/Time: November 12:34 - CONCLUSION: 1. Nonobstructive bowel gas pattern. 2. Stable position of gastrostomy tube. Multiple surgical screws secure the proximal left femur. 3. No obvious pneumoperitoneum on the single projection provided. Scott Goode MD Upper Extremity Ultrasound 10/13/15 0000 Signed Impressions: Service Date/Time: Tuesday, October 13, 2015 09:51 - CONCLUSION: 1. No evidence of deep venous thrombosis. John Anderson MD Renal Ultrasound 10/07/15 0000 Signed Impressions: Service Date/Time: Wednesday, October 07, 2015 18:29 - CONCLUSION: 1. No acute findings. 3.6 cm left renal cyst. Putnam catheter in bladder. Amaury Ellsworth MD Tunnelled Chest Tube Removal 08/05/15 1100 Signed Impressions: Service Date/Time: Wednesday, August 05, 2015 11:00 - CONCLUSION: Uncomplicated chest tube removal. Blaine Jackson MD Chest Tube Change 07/31/15 0000 Signed Impressions: Service Date/Time: Friday, July 31, 2015 14:34 - CONCLUSION: Uncomplicated reposition of previously placed chest tube as above. Blaine Jackson MD Chest Tube Insertion 07/30/15 0000 Signed Impressions: Service Date/Time: July 14:50 - CONCLUSION: Uncomplicated chest tube placement as above. Blaine Jackson MD Catheter Change 07/27/15 0000 Signed Impressions: Service Date/Time: Monday, July 27, 2015 14:43 - CONCLUSION: Uncomplicated gastrostomy tube exchange as above. Blaine Jackson MD Chest CT 07/11/15 0000 Signed Impressions: Service Date/Time: Saturday, July 11, 2015 09:49 - CONCLUSION: Scattered patchy densities significantly improved from previous study. Tiny anterior right basilar pneumothorax. Right-sided chest tube in good position. Néstor Matamoros MD Head CT 06/18/151902 Signed Impressions: Service Date/Time: June 19:31 - CONCLUSION: Diffuse atrophy unchanged. No acute intracranial findings. Kush Briscoe MD Abdomen/Pelvis CT 06/18/151902 Signed Impressions: Service Date/Time: June 19:36 - CONCLUSION: 1. Chronic nonspecific urinary bladder wall thickening. Bladder collapsed with Putnam catheter in place. 2. Chronic bilateral mid to lower lung zone groundglass opacity. 3. Nonobstructing left renal calculus. 4. Distended rectum. Kush Briscoe MD Objective Remarks GENERAL: 54-year-old male, cachectic, debilitated with contractures on T piece. HEENT: NC/AT. PERRL. OP without erythema or exudates NECK: No JVD. Supple. 8.0 Distal XLT trach in place CARDIAC: RRR. S1/S2. No S4. No murmurs, clicks gallops or rubs. LUNGS: B/L equal air entry. On T piece. ABDOMEN: S/NT/ND. Positive BS EXTREMITIES: 1+ dependent pedal edema. Contractures and deformities of fingers. Stage III coccyx/sacral decubitus ulcer NEUROLOGY: Significant contractures of bilateral lower extremity, upper extremities. Eyes open spontaneously. Temporal and facial muscle wasting, muscular atrophy all extremities. Procedures 07/26- PEG replacement 07/29- right pigtail catheter placement for new pneumothorax Date of Insertion: Oct 05, 2015 A/P Assessment and Plan Neuro/Psych: Parkinson's disease Cognitive disorder Chronic encephalopathy Dementia Depression Contractures On no sedation. CT head 06/18/15: diffuse atrophy unchanged. No acute intracranial findings Continue Sinemet 25/100 q8 via PEG, Seroquel 50 mg twice a day, olanzapine 5 mg a night, Klonopin 2 mg every 8 hours, Paxil 20 daily Resp: Acute on chronic respiratory failure Chronic trach #8 Shiley distal XLT Pneumonia, aspiration (ESBL Klebsiella and Pseudomonas pneumonia) Right pneumothorax status post pigtail catheter 2 (resolved) Continue with oxygen keep sat >92% Bronchodilators, pulm toilet, trach care Pulmonary Dr. Restrepo following. On HC 50mg Q12- taper IV steroids Exchanged to 8 Distal XLT on 08/15 to facilitate suctioning, trach care. Cardiac History of orthostasis History of CAD History dyslipidemia History of hypertension Continue Midodrine 5 mg BID. Monitor HR and BP keep MAP>65mmHg. Lactic acid resolved 1.4 11/27 On steroids- HC 50mg IV Q12, PO prednisone on hold GI: Chronic moderate protein energy malnutrition Dysphagia Status post PEG Internal hemorrhoids Gastroesophageal reflux disease - TF Jevity 1.5 @ 60ml/hr, on Reglan 5mg Q8 PRN for high residuals. - On Prevacid 30 mg per PEG tube daily for GERD - 11/25 KUB abdomen: Nonobstructive bowel gas pattern. Stable position of gastrostomy tube. FEN/Renal: Nonobstructing left renal calculus - Monitor renal function, I/O's. electrolytes replacement per protocol. -On Free H20 200ml Q4 - Will need, K, Phos replacement today ID: Aspiration pneumonia Cele UTI 11/26 Urine cx: Kleb ESBL 11/26 sputum cx: Kleb ESBL, Pseudomonas 11/13 C-diff PCR positive 11/18 Sputum: Pseudomonas 10/19 Sputum: Pseudomonas- likely colonized 10/19 urine cx: Yeast species 10/12 BC: NGTD 10/11 BC: NGTD 10/11 Urine cx: C. Tropicalis 10/11 Sputum: ESBL Klebsiella and Pseudomonas pneumonia 10/10 Urine: C. Tropicalis 09/21 Urine cx: Pseudomonas ? colonized 09/19 Sputum cx: Pseudomonas, Kleb pneumonia ESBL pos Candiduria (cele tropicalis urine cx 08/17) ESBL positive Klebsiella/Pseudomonas pneumonia Stenotrophomonas in sputum 08/17 MRSA colonization Sepsis UTI Klebsiella ESBL positive (has been treated) Continue with abx per ID ( Zosyn, Colistin Nebs) Vanco 1gram x1 dose 11/27, monitor for signs of infections ( Fever, WBC) ID service is following, follow up on cultures Endo: On SSI (Low) with accuchecks Q6. Heme Normocytic Anemia - Monitor CBC MSK Bilateral lower extremity Contractures Stage III sacral decubitus present on admission - Wound care and PT on case Prophylaxis - GI - Prevacid - DVT - SCDs/ Lovenox. ACCESS: PIVs Right subclavian CVP placed 11/27 Palliative care is following Will sign off and transfer care to [facility] Level 3 Antonio Carr MD Dec 02, 2015 10:11
[2015-12-02] MEDS: COLLAGENASE OINT 30 GM TUBE TOP SCH (12:24)
[2015-12-02] MEDS: POTASSIUM PHOSPHATE INJ 30 MMOL in SODIUM CHLOR 0.9% 250 ML INJ 250 ML IV PRN (12:25)
[2015-12-03] VITALS (21 sets, daily range): BP systolic 101–154; BP diastolic 66–81; PULSE 63–110; RESP 18–20; TEMP 97.7–98.7; O2SAT 93–100
[2015-12-03] MEDS: clonazePAM 1 MG TAB PO SCH ×4 (00:08→20:57)
[2015-12-03] MEDS: QUEtiapine FUMARATE 25 MG TAB G-TUBE SCH ×3 (00:08→21:01)
[2015-12-03] MEDS: HYDROCORTISONE SOD SUCCINATE 100 MG VIAL IV PUSH SCH ×3 (00:08→20:57)
[2015-12-03] MEDS: OLANZapine 5 MG TAB GT SCH ×2 (00:09→21:01)
[2015-12-03] MEDS: GABAPENTIN 300 MG CAP G-TUBE SCH ×3 (00:09→20:58)
[2015-12-03] MEDS: MIDODRINE 5 MG TAB G-TUBE SCH ×3 (00:09→21:01)
[2015-12-03] MEDS: CHLORHEXIDINE 0.12% (ORAL KIT) 15 ML CUP MT SCH ×3 (00:10→21:03)
[2015-12-03] MEDS: SODIUM CHLORIDE 0.9% FLUSH 5 ML FLUSH IVF SCH ×3 (00:11→20:58)
[2015-12-03] MEDS: PIPERACIL-TAZO 4.5 GM PREMIX 100 ML IV SCH ×5 (00:12→23:46)
[2015-12-03] MEDS: CARBIDOPA/LEVODOPA 25 MG/100 MG TAB GT SCH ×4 (00:15→20:58)
[2015-12-03] MEDS: ENOXAPARIN SODIUM 40 MG/0.4 ML SYRINGE SQ SCH ×2 (00:16→20:57)
[2015-12-03] MEDS: MORPHINE SULFATE 4 MG/ML INJ IV PUSH PRN (00:52)
[2015-12-03] MEDS: FREE WATER G-TUBE SCH ×7 (04:00→23:43)
[2015-12-03] MEDS: INSULIN NovoLIN REGULAR SUPPLEMENTAL SCALE SQ SCH ×5 (06:14→23:46)
[2015-12-03 07:13] LABS: AUTOMATED NEUTROPHIL # 9.1 TH/MM3 (1.8-7.7); BASOPHIL % 0.1 % (0.0-2.0); EOSINOPHIL # 0.4 TH/MM3 (0-0.4); EOSINOPHIL % 3.5 % (0.0-4.0); HEMATOCRIT 30.5 % (39.0-51.0); HEMO FLAGS DIFF FINAL; LYMPH % 15.8 % (9.0-44.0); MEAN CELL VOLUME 84.7 FL (80.0-100.0); MEAN CORPUSCULAR HEMOGLOBIN 27.1 PG (27.0-34.0); MEAN CORPUSCULAR HGB CONC 31.9 % (32.0-36.0); MONO % 8.1 % (0.0-8.0); NEUT % 72.5 % (16.0-70.0); PLATELET COUNT 220 TH/MM3 (150-450); RED CELL DISTRIBUTION WIDTH 15.9 % (11.6-17.2); WHITE BLOOD COUNT 12.5 TH/MM3 (4.0-11.0)
[2015-12-03 07:34] LABS: BICARBONATE 41.7 MEQ/L (21.0-32.0); MAGNESIUM 1.7 MG/DL (1.5-2.5)
[2015-12-03 07:40] LABS: POTASSIUM 2.8 MEQ/L (3.5-5.1)
[2015-12-03] MEDS: RESP: COLISTIN 150 MG VIAL NEB SCH ×2 (08:21→23:57)
[2015-12-03] MEDS: RESP: ALBUTEROL 2.5 MG/3 ML NEB (PRN) NEB (08:50)
[2015-12-03] MEDS: LACTOBACILLUS ACIDOPHILUS TAB PO SCH ×3 (09:00→16:44)
[2015-12-03] MEDS: COLLAGENASE OINT 30 GM TUBE TOP SCH (09:00)
[2015-12-03] MEDS: PARoxetine HCL 20 MG TAB G-TUBE SCH (09:41)
[2015-12-03] MEDS: ACETAMINOPHEN/HYDROcodone 325 MG/5 MG TAB PO PRN ×2 (09:41→16:45)
[2015-12-03] MEDS: ARTIFICIAL TEARS OPTH SOLN 15 ML BTL EACH EYE SCH ×3 (09:41→16:45)
[2015-12-03] MEDS: LANSOPRAZOLE SOLUTAB 30 MG TAB NG SCH (09:42)
--- NOTE | 2015-12-03 12:27 | HHI.PR ---
Subjective Remarks Remains lethargic and Tachypneic. On Bipap now.FIO2 40 %. No vomiting .Now on IV NS On tube feeds. Objective Vital Signs Date Time Temp Pulse Resp B/P Pulse Ox O2 Delivery O2 Flow Rate FiO2 12/03/15 10:41 18 12/03/15 10:34 98 50 12/03/15 10:00 95 12/03/15 09:14 100 50 12/03/15 08:32 93 T-piece 8.00 50 12/03/15 08:00 99 T-Piece 6.00 50 12/03/15 08:00 91 12/03/15 08:00 98.7 91 18 101/73 99 12/03/15 06:00 95 12/03/15 04:36 97 40 12/03/15 04:00 98.1 79 20 102/66 96 12/03/15 04:00 99 T-Piece 6.00 50 12/03/15 04:00 63 12/03/15 02:00 89 12/03/15 00:30 94 40 12/03/15 00:00 102 12/03/15 00:00 99 T-Piece 6.00 50 12/03/15 00:00 97.7 110 20 154/74 94 12/02/15 22:00 104 12/02/15 21:35 95 40 12/02/15 20:00 98.0 102 20 159/77 91 12/02/15 20:00 99 T-Piece 6.00 50 12/02/15 20:00 102 12/02/15 18:00 110 12/02/15 16:00 99 T-Piece 6.00 50 12/02/15 16:00 95 12/02/15 16:00 97.9 80 18 122/86 100 12/02/15 14:00 72 I/O 12/02/15 12/02/15 12/02/15 12/03/15 12/03/15 12/03/15 07:00 15:00 23:00 07:00 15:00 23:00 Intake Total 1023 ml 740 ml 619 ml 1080 ml Output Total 350 ml 300 ml 300 ml 300 ml 0 ml Balance 673 ml 440 ml 319 ml 780 ml 0 ml IV Total 204 ml 194 ml 205 ml Tube Feeding 419 ml 420 ml 425 ml 415 ml Other 400 ml 320 ml 460 ml Output Urine Total 350 ml 300 ml 300 ml 300 ml Tube Feeding Residual Discard 0 ml 0 ml 0 ml # Bowel Movements 0 3 2 3 Result Diagram: 12/03/1563112/03/15631 Objective Remarks This is a thin white male who is responsive , Lethargic,with a trach tube in place. HEENT: Pupils are equal and reactive to light. Has Throat secretions CHEST:Decreased breath sounds, with wheeze and basal crackles. CARDIOVASCULAR: S1 and S2 is normal.No murmur. ABDOMEN: Soft, nondistended. BS +. He has a PEG tube in place. EXTREMITIES: No edema.muscle wasting. NEURO: Alert, and has weak extremities, but moves arms. Skin is cool. Assessment and Plan Assessment and Plan IMPRESSION 1. Chronic Respiratory failure. 2. Sepsis, Aspiration. 3. Shock.Resolved. 4. Tracheobronchitis 5. Parkinson's disease 6. Dementia. 7. Severe Deconditioning. Plan : 1. Continue on Bipap 5/15 , FIO2 50 % and wean to T Bar in am. 2. Nebs qid , duoneb. 3. Resume tube feeds at 30 CC and Keep Head end up 45 degrees 4. Cont prednisone 5 mg daily. 5. Levsin .25 mg tid prn for Secretions 6. Cont Trach toilet and lavage. 8. CBC and BMP. 9. IV NS at 50 CC 10. Antibiotics per ID. Darren Kiser MD Dec 03, 2015 12:27
--- NOTE | 2015-12-03 13:48 | HHI.IDPN ---
Subjective Subjective Remarks Chart reviewed. Reconsult for evaluation of septic shock. He well-known to the ID service. Has been treated for multiple infections including pneumonia and UTI. On November 25 patient vomited tube feedings. He subsequently developed more respiratory problem, became hypotensive, and transferred to the intensive care unit. He is not febrile. He is currently on Levophed. His WBC had gone up. Patient currently on tube feedings. He remains on T piece. He is currently on Zosyn, Levaquin, and vancomycin. Infectious disease consultation requested to evaluate the patient with sepsis and shock. Antibiotics Zosyn IV Lines Peripheral IV with no e/o infection Past Medical History reviewed Allergies: Coded Allergies: *MDRO Multi-Drug Resistant Organism (Verified Adverse Reaction, Unknown, 12/01/15) ESBL E. coli (urine) - 02/19/2015; ESBL K. 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 Vital Signs Date Time Temp Pulse Resp B/P Pulse Ox O2 Delivery O2 Flow Rate FiO2 12/03/15 13:07 97 45 12/03/15 10:41 18 12/03/15 10:34 98 50 12/03/15 10:00 95 12/03/15 09:14 100 50 12/03/15 08:32 93 T-piece 8.00 50 12/03/15 08:00 99 T-Piece 6.00 50 12/03/15 08:00 91 12/03/15 08:00 98.7 91 18 101/73 99 12/03/15 06:00 95 12/03/15 04:36 97 40 12/03/15 04:00 98.1 79 20 102/66 96 12/03/15 04:00 99 T-Piece 6.00 50 12/03/15 04:00 63 12/03/15 02:00 89 12/03/15 00:30 94 40 12/03/15 00:00 102 12/03/15 00:00 99 T-Piece 6.00 50 12/03/15 00:00 97.7 110 20 154/74 94 12/02/15 22:00 104 12/02/15 21:35 95 40 12/02/15 20:00 98.0 102 20 159/77 91 12/02/15 20:00 99 T-Piece 6.00 50 12/02/15 20:00 102 12/02/15 18:00 110 12/02/15 16:00 99 T-Piece 6.00 50 12/02/15 16:00 95 12/02/15 16:00 97.9 80 18 122/86 100 12/02/15 14:00 72 12/02/15 12/02/15 12/03/15 15:00 23:00 07:00 Intake Total 740 ml 619 ml 1080 ml Output Total 300 ml 300 ml 300 ml Balance 440 ml 319 ml 780 ml IV Total 194 ml 205 ml Tube Feeding 420 ml 425 ml 415 ml Other 320 ml 460 ml Output Urine Total 300 ml 300 ml 300 ml Tube Feeding Residual Discard 0 ml 0 ml # Bowel Movements 3 2 3 . Laboratory Tests Test 12/02/15 12/03/15 05:00 06:32 White Blood Count 12.6 TH/MM3 12.5 TH/MM3 Red Blood Count 3.70 MIL/MM3 3.60 MIL/MM3 Hemoglobin 10.2 GM/DL 9.7 GM/DL Hematocrit 31.3 % 30.5 % Mean Corpuscular Volume 84.4 FL 84.7 FL Mean Corpuscular Hemoglobin 27.7 PG 27.1 PG Mean Corpuscular Hemoglobin 32.8 % 31.9 % Concent Red Cell Distribution Width 15.9 % 15.9 % Platelet Count 208 TH/MM3 220 TH/MM3 Mean Platelet Volume 9.1 FL 8.9 FL Neutrophils (%) (Auto) 88.3 % 72.5 % Lymphocytes (%) (Auto) 7.3 % 15.8 % Monocytes (%) (Auto) 4.1 % 8.1 % Eosinophils (%) (Auto) 0.2 % 3.5 % Basophils (%) (Auto) 0.1 % 0.1 % Neutrophils # (Auto) 11.2 TH/MM3 9.1 TH/MM3 Lymphocytes # (Auto) 0.9 TH/MM3 2.0 TH/MM3 Monocytes # (Auto) 0.5 TH/MM3 1.0 TH/MM3 Eosinophils # (Auto) 0.0 TH/MM3 0.4 TH/MM3 Basophils # (Auto) 0.0 TH/MM3 0.0 TH/MM3 CBC Comment DIFF FINAL DIFF FINAL Differential Comment Laboratory Tests Test 12/02/15 12/03/15 05:00 06:32 Sodium Level 143 MEQ/L 145 MEQ/L Potassium Level 3.1 MEQ/L 2.8 MEQ/L Chloride Level 98 MEQ/L 100 MEQ/L Carbon Dioxide Level 37.9 MEQ/L 41.7 MEQ/L Anion Gap 7 MEQ/L 3 MEQ/L Blood Urea Nitrogen 11 MG/DL 11 MG/DL Creatinine 0.48 MG/DL 0.41 MG/DL Estimat Glomerular Filtration 182 ML/MIN 219 ML/MIN Rate Random Glucose 132 MG/DL 145 MG/DL Calcium Level 8.4 MG/DL 8.4 MG/DL Phosphorus Level 2.0 MG/DL 2.4 MG/DL Magnesium Level 1.8 MG/DL 1.7 MG/DL Total Bilirubin 0.3 MG/DL Aspartate Amino Transf 14 U/L (AST/SGOT) Alanine Aminotransferase LESS THAN 6 U/L (ALT/SGPT) Alkaline Phosphatase 40 U/L Total Protein 5.7 GM/DL Albumin 2.4 GM/DL Imaging Last Impressions Chest X-Ray 11/28/15 0000 Signed Impressions: Service Date/Time: Saturday, November 28, 2015 00:21 - CONCLUSION: No acute cardiopulmonary disease. Eugene Schmid MD Abdomen X-Ray 11/26/15 0000 Signed Impressions: Service Date/Time: November 12:34 - CONCLUSION: 1. Nonobstructive bowel gas pattern. 2. Stable position of gastrostomy tube. Multiple surgical screws secure the proximal left femur. 3. No obvious pneumoperitoneum on the single projection provided. Scott Goode MD Upper Extremity Ultrasound 10/13/15 0000 Signed Impressions: Service Date/Time: Tuesday, October 13, 2015 09:51 - CONCLUSION: 1. No evidence of deep venous thrombosis. John Andesron MD Renal Ultrasound 10/07/15 0000 Signed Impressions: Service Date/Time: Wednesday, October 07, 2015 18:29 - CONCLUSION: 1. No acute findings. 3.6 cm left renal cyst. Putnam catheter in bladder. Amaury Ellsworth MD Tunnelled Chest Tube Removal 08/05/15 1100 Signed Impressions: Service Date/Time: Wednesday, August 05, 2015 11:00 - CONCLUSION: Uncomplicated chest tube removal. Blaine Jackson MD Chest Tube Change 07/31/15 0000 Signed Impressions: Service Date/Time: Friday, July 31, 2015 14:34 - CONCLUSION: Uncomplicated reposition of previously placed chest tube as above. Blaine Jackson MD Chest Tube Insertion 07/30/15 0000 Signed Impressions: Service Date/Time: July 14:50 - CONCLUSION: Uncomplicated chest tube placement as above. Blaine Jackson MD Catheter Change 07/27/15 0000 Signed Impressions: Service Date/Time: Monday, July 27, 2015 14:43 - CONCLUSION: Uncomplicated gastrostomy tube exchange as above. Blaine Jackson MD Chest CT 07/11/15 0000 Signed Impressions: Service Date/Time: Saturday, July 11, 2015 09:49 - CONCLUSION: Scattered patchy densities significantly improved from previous study. Tiny anterior right basilar pneumothorax. Right-sided chest tube in good position. Néstor Matamoros MD Head CT 06/18/151902 Signed Impressions: Service Date/Time: June 19:31 - CONCLUSION: Diffuse atrophy unchanged. No acute intracranial findings. Kush Briscoe MD Abdomen/Pelvis CT 06/18/151902 Signed Impressions: Service Date/Time: June 19:36 - CONCLUSION: 1. Chronic nonspecific urinary bladder wall thickening. Bladder collapsed with Putnam catheter in place. 2. Chronic bilateral mid to lower lung zone groundglass opacity. 3. Nonobstructing left renal calculus. 4. Distended rectum. Kush Briscoe MD Physical Exam GENERAL: Eyes open, ?focusing, not interacting, not SOB, on T-piece, looks diaohoretic SKIN: Cool and moist. No generalized rash. No cyanosis. HEENT: Arab conjunctivae, no icterus, moist mucosa. NECK: Trach site looks ok. Neck is supple RESPIRATORY: decreased at the bases. GASTROINTESTINAL: Abdomen soft, not distended. He did some grimacing during palpation, but no guarding. PEG site looks okay. No hepatosplenomegaly MUSCULOSKELETAL: No cyanosis No pedal edema. Contracted all 4 extremities. NEUROLOGICAL: Eyes open, Extremities contracted Peripheral IV line sites with no evidence of infection. ; Putnam in place, urine looks clear Assessment & Plan Remarks IMPRESSION Sepsis/SIRS related to aspiration PNA?HCAP. Preceding events seem to be vomiting , ?aspiration, CXR negative however History of PSAE ESBL cath associated UTI. S/P Rx Leukocytosis, reactive due to current problem Previous C diff (+), no treated, improved - has had freq BM reported - will repeat if persistent and liquid Chronic respiratory failure on trach PSAE and ESBL Kleb in sputum in recent past. Chronic encephalopathy with underlying diagnosis of advanced dementia as well as advanced Parkinson's disease. Status post trach Status post gastrostomy tube with no evidence of infection. Stage II sacral decubitus ulcer present on admission. Recommendations Continue Zosyn IV (S on culture report) and clinically responding. Continue Colistin nebs. Follow cultures Follow clinically. Will treat with a short regimen approx 7 days tentative plan. d/w RN I will be OOT from 12/04/15 to 12/11/2015. to cover for me. Trina Moss MD Dec 03, 2015 13:48
--- NOTE | 2015-12-03 16:30 | HHI.PR ---
Subjective Remarks desaturates, now back on BiPAP 40% on tube feedings frequent BM- not liquid stools Objective Vitals Vital Signs Date Time Temp Pulse Resp B/P Pulse Ox O2 Delivery O2 Flow Rate FiO2 12/03/15 15:45 97 40 12/03/15 14:00 95 12/03/15 13:07 97 45 12/03/15 12:00 99 T-Piece 6.00 50 12/03/15 12:00 102 12/03/15 10:41 18 12/03/15 10:34 98 50 12/03/15 10:00 95 12/03/15 09:14 100 50 12/03/15 08:32 93 T-piece 8.00 50 12/03/15 08:00 99 T-Piece 6.00 50 12/03/15 08:00 91 12/03/15 08:00 98.7 91 18 101/73 99 12/03/15 06:00 95 12/03/15 04:36 97 40 12/03/15 04:00 98.1 79 20 102/66 96 12/03/15 04:00 99 T-Piece 6.00 50 12/03/15 04:00 63 12/03/15 02:00 89 12/03/15 00:30 94 40 12/03/15 00:00 102 12/03/15 00:00 99 T-Piece 6.00 50 12/03/15 00:00 97.7 110 20 154/74 94 12/02/15 22:00 104 12/02/15 21:35 95 40 12/02/15 20:00 98.0 102 20 159/77 91 12/02/15 20:00 99 T-Piece 6.00 50 12/02/15 20:00 102 12/02/15 18:00 110 I/O 12/02/15 12/02/15 12/02/15 12/03/15 12/03/15 12/03/15 07:00 15:00 23:00 07:00 15:00 23:00 Intake Total 1023 ml 740 ml 619 ml 1080 ml Output Total 350 ml 300 ml 300 ml 300 ml 0 ml Balance 673 ml 440 ml 319 ml 780 ml 0 ml IV Total 204 ml 194 ml 205 ml Tube Feeding 419 ml 420 ml 425 ml 415 ml Other 400 ml 320 ml 460 ml Output Urine Total 350 ml 300 ml 300 ml 300 ml Tube Feeding Residual Discard 0 ml 0 ml 0 ml # Bowel Movements 0 3 2 3 Result Diagram: 12/03/1563112/03/15631 Imaging Last 72 hours Impressions Chest X-Ray 12/02/15599 Signed Impressions: Service Date/Time: Wednesday, December 02, 2015 05:24 - CONCLUSION: Stable chest x-ray with bibasilar airspace consolidation, left greater than right. A small left effusion is suspected as well. Erlin Barajas MD Chest X-Ray 12/01/15599 Signed Impressions: Service Date/Time: Tuesday, December 01, 2015 04:13 - CONCLUSION: Stable chest x-ray with persistent bilateral lower lung zone airspace consolidation and likely small left pleural effusion. Erlin Barajas MD Objective Remarks lethargic - pupils reactive, anicteric, oral mucosa dry trach in place- on bipap rhonchi regular rhythm- good bowel sounds, PEG in place extremities - no edema both upper extremities- moves spontaneously lower extremities-flexion contractures sacral area - stage 2-3 decubitus valdez catheter in place Procedures 07/26- PEG replacement 07/29- right pigtail catheter placement for new pneumothorax Date of Insertion: Oct 05, 2015 A/P Problem List: (1) Sepsis due to urinary tract infection ICD Code: A41.9 Status: Resolved (2) Acute respiratory failure ICD Code: J96.00 Status: Resolved (3) Chronic respiratory failure ICD Code: J96.10 Status: Chronic (4) Parkinson disease ICD Code: G20 Status: Chronic (5) UTI (urinary tract infection) ICD Code: N39.0 Status: Acute (6) Encephalopathy ICD Code: G93.40 Status: Resolved Assessment and Plan 55 years old male with tracheostomy and PEG tube assisted resident admitted for: Sepsis SHOCK - likely aspiration - Started IV zosyn. 11/25 valdez changed 11/26 ID ff Acute on chronic respiratory failure- now back on BiPAP Chronic tracheostomy Pneumonia S/P recurrent Right pneumothorax status post pigtail catheter removal Suction secretions Duo nebs 4 times a day and when necessary . colistin nebs Pulmonary ff Metabolic Encephalopathy - chronic Parkinson's disease Cognitive disorder/Underlying dementia Depression CT head 06/18/15: - diffuse atrophy unchanged. No acute intracranial findings Continue Sinemet 25/100 3 times a day via PEG, Seroquel 50 mg twice a day, olanzapine 5 mg a night, Klonopin 2 mg every 8 hours, Paxil 20 daily and Neurontin 300 mg twice a day. These medications have been slowly titrated up since admission Continue Roxanol 5 mg every 4 hours when necessary pain and fentanyl patch 50 g every 3 days for pain management. Cardiac History of orthostasis History of CAD, HLP, Hypertension Continue Midodrine 5 mg twice a day Monitor HR and BP keep MAP>65mmHg GI: Malnutrition/protein calorie - moderate Status post PEG Hemorrhoids Gastroesophageal reflux disease - Tolerating Jevity 1.5 at 50 cc/hr - Current Colace/senna for bowel regimen. /metabolic: Nonobstructing left renal calculus Hypernatremia - resolved Hypokalemia- replacement protocol Acute urinary retention - Monitor renal function, I/O's. electrolytes replacement per protocol. - Continue on Free H20 200ml 3 times a day monitor ID: Candiduria ESBL positive Klebsiella/Pseudomonas pneumonia MRSA colonization - Multidrug resistant UTI- ESBL 02/19/15 , MRSA + 03/20/15 - Heena glabrata in urine 03/19/15 - Recheck blood, sputum and urine cultures 07/06 no growth - 06/17 - blood cultures 2 - CONS/staph epi - 06/17 - sputum - ESBL positive Klebsiella/Pseudomonas Treated 15 days with tobramycin aerosols twice a day. - 06/17 - urine - C. glabrata/tropicalis - treated with Diflucan --off Abx. monitor for signs of infections ( Fever, WBC) Endo: --SSI if needed for glycemic control Heme Anemia - Monitor CBC MSK Bilateral lower extremity Contractures Stage II DU - Wound care ff - Continue physical therapy - Santyl dressing- consult wound care nurse Prophylaxis - GI - Prevacid - DVT - SCDs/Lovenox 11/25 I updated our Palliative care service- Ms. Meadows in patient's change of status and she will touch base with family I will continue aggressive medical management. DNR code status- No intubation- d/w Palliative care service 11/26- d/w Palliative who spoke with patient's sister I tried calling number listed on chart - was a Rehab facility no other contact number listed Claire Queen MD Dec 03, 2015 16:30
[2015-12-03] MEDS: LORazepam 2 MG/ML VIAL IVP PRN (20:58)
[2015-12-03] MEDS: POTASSIUM CHLORIDE 10 MEQ CAP G-TUBE SCH (21:02)
[2015-12-04] VITALS (19 sets, daily range): BP systolic 106–125; BP diastolic 72–87; PULSE 76–96; RESP 15–26; TEMP 97.8–98.2; O2SAT 96–100
[2015-12-04] MEDS: FREE WATER G-TUBE SCH ×7 (04:00→22:26)
--- NOTE | 2015-12-04 05:16 | RADRPT ---
EXAM DATE/TIME: 12/04/2015 03:50 [facility] COMPARISON: CHEST SINGLE AP, December 02, 2015, 5:24. INDICATIONS : Evaluate for pneumonia. MEDICAL HISTORY : None. SURGICAL HISTORY : None. ENCOUNTER: Subsequent ACUITY: 1 month PAIN SCORE: Non-responsive. LOCATION: chest FINDINGS: A single view of the chest demonstrates interstitial densities in the right lung. Heart normal size. Tracheostomy tube unchanged. Right subclavian central line also unchanged. The cardiomediastinal cont ours are unremarkable. Osseous structures are intact. CONCLUSION: Interstitial densities in the right lung. Néstor Matamoros MD on December 04, 2015 at 5:14 Board Certified Radiologist. This report was verified electronically.
[2015-12-04] MEDS: INSULIN NovoLIN REGULAR SUPPLEMENTAL SCALE SQ SCH ×3 (06:00→17:36)
[2015-12-04] MEDS: clonazePAM 1 MG TAB PO SCH ×4 (06:25→22:26)
[2015-12-04] MEDS: CARBIDOPA/LEVODOPA 25 MG/100 MG TAB GT SCH ×4 (06:26→22:25)
[2015-12-04] MEDS: PIPERACIL-TAZO 4.5 GM PREMIX 100 ML IV SCH ×5 (06:26→22:26)
[2015-12-04] MEDS: RESP: COLISTIN 150 MG VIAL NEB SCH ×3 (07:50→20:13)
[2015-12-04] MEDS: CHLORHEXIDINE 0.12% (ORAL KIT) 15 ML CUP MT SCH ×2 (08:00→20:00)
[2015-12-04] MEDS: COLLAGENASE OINT 30 GM TUBE TOP SCH (09:00)
[2015-12-04] MEDS: SODIUM CHLORIDE 0.9% FLUSH 5 ML FLUSH IVF SCH ×2 (09:00→20:33)
--- NOTE | 2015-12-04 09:20 | HHI.PR ---
Subjective Remarks now placed on T piece 50% tolerating tube feedings needs suctioning Objective Vitals Vital Signs Date Time Temp Pulse Resp B/P Pulse Ox O2 Delivery O2 Flow Rate FiO2 12/04/15 08:16 100 T-piece 50 12/04/15 07:50 100 40 12/04/15 07:50 100 BiPAP 40 12/04/15 06:00 77 12/04/15 04:12 100 40 12/04/15 04:00 91 12/04/15 04:00 98.0 91 26 124/87 99 12/04/15 04:00 99 Bi-Pap 40 T-Piece 12/04/15 02:00 87 12/04/15 00:00 90 12/04/15 00:00 97.8 90 24 123/78 97 12/04/15 00:00 97 Bi-Pap 40 T-Piece 12/03/15 23:58 98 40 12/03/15 22:00 84 12/03/15 20:00 98.1 79 20 122/81 96 12/03/15 20:00 90 12/03/15 20:00 96 Bi-Pap 40 T-Piece 12/03/15 19:38 98 40 12/03/15 18:47 18 12/03/15 18:00 95 12/03/15 16:00 97.7 110 20 154/74 94 12/03/15 16:00 102 12/03/15 16:00 99 T-Piece 6.00 50 12/03/15 15:45 97 40 12/03/15 14:00 95 12/03/15 13:07 97 45 12/03/15 12:00 99 T-Piece 6.00 50 12/03/15 12:00 102 12/03/15 10:34 98 50 12/03/15 10:00 95 I/O 12/03/15 12/03/15 12/03/15 12/04/15 12/04/15 12/04/15 07:00 15:00 23:00 07:00 15:00 23:00 Intake Total 1080 ml 1450 ml 1353 ml Output Total 300 ml 0 ml 800 ml 950 ml Balance 780 ml 0 ml 650 ml 403 ml IV Total 205 ml 600 ml 360 ml Tube Feeding 415 ml 850 ml 543 ml Other 460 ml 450 ml Output Urine Total 300 ml 800 ml 950 ml Tube Feeding Residual Discard 0 ml 0 ml 0 ml 0 ml # Bowel Movements 3 2 1 Result Diagram: 12/03/1563112/03/15631 Imaging Last 72 hours Impressions Chest X-Ray 12/04/15599 Signed Impressions: Service Date/Time: Friday, December 04, 2015 03:50 - CONCLUSION: Interstitial densities in the right lung. Néstor Matamoros MD Chest X-Ray 12/02/15599 Signed Impressions: Service Date/Time: Wednesday, December 02, 2015 05:24 - CONCLUSION: Stable chest x-ray with bibasilar airspace consolidation, left greater than right. A small left effusion is suspected as well. Erlin Barajas MD Objective Remarks pupils reactive, anicteric, oral mucosa dry trach in place on Tpiece rhonchi regular rhythm- good bowel sounds, PEG in place extremities - no edema both upper extremities- moves spontaneously lower extremities-flexion contractures sacral area - stage 2-3 decubitus valdez catheter in place Procedures 07/26- PEG replacement 07/29- right pigtail catheter placement for new pneumothorax Date of Insertion: Oct 05, 2015 A/P Problem List: (1) Sepsis due to urinary tract infection ICD Code: A41.9 Status: Resolved (2) Acute respiratory failure ICD Code: J96.00 Status: Resolved (3) Chronic respiratory failure ICD Code: J96.10 Status: Chronic (4) Parkinson disease ICD Code: G20 Status: Chronic (5) UTI (urinary tract infection) ICD Code: N39.0 Status: Acute (6) Encephalopathy ICD Code: G93.40 Status: Resolved Assessment and Plan 55 years old male with tracheostomy and PEG tube custodial resident admitted for: Sepsis SHOCK - likely aspiration - Started IV zosyn. 11/25 valdez changed 11/26 ID ff Acute on chronic respiratory failure- now back on BiPAP Chronic tracheostomy Pneumonia S/P recurrent Right pneumothorax status post pigtail catheter removal Suction secretions Duo nebs 4 times a day and when necessary . colistin nebs Pulmonary ff Metabolic Encephalopathy - chronic Parkinson's disease Cognitive disorder/Underlying dementia Depression CT head 06/18/15: - diffuse atrophy unchanged. No acute intracranial findings Continue Sinemet 25/100 3 times a day via PEG, Seroquel 50 mg twice a day, olanzapine 5 mg a night, Klonopin 2 mg every 8 hours, Paxil 20 daily and Neurontin 300 mg twice a day. These medications have been slowly titrated up since admission Continue Roxanol 5 mg every 4 hours when necessary pain and fentanyl patch 50 g every 3 days for pain management. Cardiac History of orthostasis History of CAD, HLP, Hypertension Continue Midodrine 5 mg twice a day Monitor HR and BP keep MAP>65mmHg GI: Malnutrition/protein calorie - moderate Status post PEG Hemorrhoids Gastroesophageal reflux disease - Tolerating Jevity 1.5 at 50 cc/hr - Current Colace/senna for bowel regimen. /metabolic: Nonobstructing left renal calculus Hypokalemia Hypernatremia - resolved Acute urinary retention - Monitor renal function, I/O's. electrolytes replacement per protocol. - Continue on Free H20 200ml 3 times a day monitor - ff electrolytes- replacement protocol ID: Candiduria ESBL positive Klebsiella/Pseudomonas pneumonia MRSA colonization - Multidrug resistant UTI- ESBL 02/19/15 , MRSA + 03/20/15 - Heena glabrata in urine 03/19/15 - Recheck blood, sputum and urine cultures 07/06 no growth - 06/17 - blood cultures 2 - CONS/staph epi - 06/17 - sputum - ESBL positive Klebsiella/Pseudomonas Treated 15 days with tobramycin aerosols twice a day. - 06/17 - urine - C. glabrata/tropicalis - treated with Diflucan --off Abx. monitor for signs of infections ( Fever, WBC) Endo: --SSI if needed for glycemic control Heme Anemia - Monitor CBC MSK Bilateral lower extremity Contractures Stage II DU - Wound care ff - Continue physical therapy - Santyl dressing- consult wound care nurse Prophylaxis - GI - Prevacid - DVT - SCDs/Lovenox 11/25 I updated our Palliative care service- Ms. Meadows in patient's change of status and she will touch base with family I will continue aggressive medical management. DNR code status- No intubation- d/w Palliative care service 11/26- d/w Palliative who spoke with patient's sister I tried calling number listed on chart - was a Rehab facility no other contact number listed Claire Queen MD Dec 04, 2015 09:19
[2015-12-04] MEDS: HYDROCORTISONE SOD SUCCINATE 100 MG VIAL IV PUSH SCH ×2 (09:26→20:30)
[2015-12-04] MEDS: POTASSIUM CHLORIDE 10 MEQ CAP G-TUBE SCH ×2 (09:26→20:31)
[2015-12-04] MEDS: LORazepam 2 MG/ML VIAL IVP PRN ×2 (09:26→17:35)
[2015-12-04] MEDS: ACETAMINOPHEN/HYDROcodone 325 MG/5 MG TAB PO PRN ×2 (09:26→17:36)
[2015-12-04] MEDS: LACTOBACILLUS ACIDOPHILUS TAB PO SCH ×3 (09:27→17:36)
[2015-12-04] MEDS: PARoxetine HCL 20 MG TAB G-TUBE SCH (09:27)
[2015-12-04] MEDS: MIDODRINE 5 MG TAB G-TUBE SCH ×2 (09:27→20:31)
[2015-12-04] MEDS: LANSOPRAZOLE SOLUTAB 30 MG TAB NG SCH (09:27)
[2015-12-04] MEDS: GABAPENTIN 300 MG CAP G-TUBE SCH ×2 (09:27→20:31)
[2015-12-04] MEDS: QUEtiapine FUMARATE 25 MG TAB G-TUBE SCH ×2 (09:27→20:31)
[2015-12-04] MEDS: ARTIFICIAL TEARS OPTH SOLN 15 ML BTL EACH EYE SCH ×3 (09:28→17:37)
--- NOTE | 2015-12-04 10:16 | HHI.IDPN ---
Subjective Subjective Remarks ID COVERAGE Notes reviewed Temps ok BP ok On trach collar currently Needs frequent suctioning He well-known to the ID service. Has been treated for multiple infections including pneumonia and UTI. On November 25 patient vomited tube feedings. He subsequently developed more respiratory problem, became hypotensive, and transferred to the intensive care unit. He is not febrile. Antibiotics Zosyn IV Colistin nebs Lines Peripheral IV with no e/o infection Past Medical History reviewed Allergies: Coded Allergies: *MDRO Multi-Drug Resistant Organism (Verified Adverse Reaction, Unknown, 12/01/15) ESBL E. coli (urine) - 02/19/2015; ESBL K. 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 Vital Signs Date Time Temp Pulse Resp B/P Pulse Ox O2 Delivery O2 Flow Rate FiO2 12/04/15 10:05 16 12/04/15 08:16 100 T-piece 50 12/04/15 07:50 100 40 12/04/15 07:50 100 BiPAP 40 12/04/15 06:00 77 12/04/15 04:12 100 40 12/04/15 04:00 91 12/04/15 04:00 98.0 91 26 124/87 99 12/04/15 04:00 99 Bi-Pap 40 T-Piece 12/04/15 02:00 87 12/04/15 00:00 90 12/04/15 00:00 97.8 90 24 123/78 97 12/04/15 00:00 97 Bi-Pap 40 T-Piece 12/03/15 23:58 98 40 12/03/15 22:00 84 12/03/15 20:00 98.1 79 20 122/81 96 12/03/15 20:00 90 12/03/15 20:00 96 Bi-Pap 40 T-Piece 12/03/15 19:38 98 40 12/03/15 18:00 95 12/03/15 16:00 97.7 110 20 154/74 94 12/03/15 16:00 102 12/03/15 16:00 99 T-Piece 6.00 50 12/03/15 15:45 97 40 12/03/15 14:00 95 12/03/15 13:07 97 45 12/03/15 12:00 99 T-Piece 6.00 50 12/03/15 12:00 102 12/03/15 10:34 98 50 12/03/15 12/03/15 12/04/15 15:00 23:00 07:00 Intake Total 1450 ml 1353 ml Output Total 0 ml 800 ml 950 ml Balance 0 ml 650 ml 403 ml IV Total 600 ml 360 ml Tube Feeding 850 ml 543 ml Other 450 ml Output Urine Total 800 ml 950 ml Tube Feeding Residual Discard 0 ml 0 ml 0 ml # Bowel Movements 2 1 . Laboratory Tests Test 12/03/15 06:32 White Blood Count 12.5 TH/MM3 Red Blood Count 3.60 MIL/MM3 Hemoglobin 9.7 GM/DL Hematocrit 30.5 % Mean Corpuscular Volume 84.7 FL Mean Corpuscular Hemoglobin 27.1 PG Mean Corpuscular Hemoglobin 31.9 % Concent Red Cell Distribution Width 15.9 % Platelet Count 220 TH/MM3 Mean Platelet Volume 8.9 FL Neutrophils (%) (Auto) 72.5 % Lymphocytes (%) (Auto) 15.8 % Monocytes (%) (Auto) 8.1 % Eosinophils (%) (Auto) 3.5 % Basophils (%) (Auto) 0.1 % Neutrophils # (Auto) 9.1 TH/MM3 Lymphocytes # (Auto) 2.0 TH/MM3 Monocytes # (Auto) 1.0 TH/MM3 Eosinophils # (Auto) 0.4 TH/MM3 Basophils # (Auto) 0.0 TH/MM3 CBC Comment DIFF FINAL Differential Comment Laboratory Tests Test 12/03/15 06:32 Sodium Level 145 MEQ/L Potassium Level 2.8 MEQ/L Chloride Level 100 MEQ/L Carbon Dioxide Level 41.7 MEQ/L Anion Gap 3 MEQ/L Blood Urea Nitrogen 11 MG/DL Creatinine 0.41 MG/DL Estimat Glomerular Filtration 219 ML/MIN Rate Random Glucose 145 MG/DL Calcium Level 8.4 MG/DL Phosphorus Level 2.4 MG/DL Magnesium Level 1.7 MG/DL Imaging Chest X-Ray 12/04/15 0600 Signed Impressions: Service Date/Time: Friday, December 04, 2015 03:50 - CONCLUSION: Interstitial densities in the right lung. Néstor Matamoros MD Chest X-Ray 11/28/15 0000 Signed Impressions: Service Date/Time: Saturday, November 28, 2015 00:21 - CONCLUSION: No acute cardiopulmonary disease. Eguene Schmid MD Abdomen X-Ray 11/26/15 0000 Signed Impressions: Service Date/Time: November 12:34 - CONCLUSION: 1. Nonobstructive bowel gas pattern. 2. Stable position of gastrostomy tube. Multiple surgical screws secure the proximal left femur. 3. No obvious pneumoperitoneum on the single projection provided. Scott Goode MD Upper Extremity Ultrasound 10/13/15 0000 Signed Impressions: Service Date/Time: Tuesday, October 13, 2015 09:51 - CONCLUSION: 1. No evidence of deep venous thrombosis. John Anderson MD Renal Ultrasound 10/07/15 0000 Signed Impressions: Service Date/Time: Wednesday, October 07, 2015 18:29 - CONCLUSION: 1. No acute findings. 3.6 cm left renal cyst. Putnam catheter in bladder. Amaury Ellsworth MD Tunnelled Chest Tube Removal 08/05/15 1100 Signed Impressions: Service Date/Time: Wednesday, August 05, 2015 11:00 - CONCLUSION: Uncomplicated chest tube removal. Blaine Jackson MD Chest Tube Change 07/31/15 0000 Signed Impressions: Service Date/Time: Friday, July 31, 2015 14:34 - CONCLUSION: Uncomplicated reposition of previously placed chest tube as above. Blaine Jackson MD Chest Tube Insertion 07/30/15 0000 Signed Impressions: Service Date/Time: July 14:50 - CONCLUSION: Uncomplicated chest tube placement as above. Blaine Jackson MD Catheter Change 07/27/15 0000 Signed Impressions: Service Date/Time: Monday, July 27, 2015 14:43 - CONCLUSION: Uncomplicated gastrostomy tube exchange as above. Blaine Jackson MD Chest CT 07/11/15 0000 Signed Impressions: Service Date/Time: Saturday, July 11, 2015 09:49 - CONCLUSION: Scattered patchy densities significantly improved from previous study. Tiny anterior right basilar pneumothorax. Right-sided chest tube in good position. Néstor Matamoros MD Head CT 06/18/151902 Signed Impressions: Service Date/Time: June 19:31 - CONCLUSION: Diffuse atrophy unchanged. No acute intracranial findings. Kush Briscoe MD Abdomen/Pelvis CT 06/18/151902 Signed Impressions: Service Date/Time: , June 18, 2015 19:36 - CONCLUSION: 1. Chronic nonspecific urinary bladder wall thickening. Bladder collapsed with Putnam catheter in place. 2. Chronic bilateral mid to lower lung zone groundglass opacity. 3. Nonobstructing left renal calculus. 4. Distended rectum. Kush Briscoe MD Physical Exam GENERAL: Eyes open, not interacting, looks slightly dyspneic, on T-piece SKIN: Cool and moist. No generalized rash. No cyanosis. HEENT: Ralls conjunctivae, no icterus, moist mucosa. NECK: Trach site looks ok. Neck is supple RESPIRATORY: Scattered rhonchi, worse on R than L GASTROINTESTINAL: Abdomen soft, not distended. Not tender. No guarding. PEG site looks okay. No hepatosplenomegaly MUSCULOSKELETAL: No cyanosis No pedal edema. Contracted all 4 extremities. NEUROLOGICAL: Eyes open, Extremities contracted Peripheral IV line sites with no evidence of infection. ; Putnam in place, urine looks clear Assessment & Plan Remarks IMPRESSION Sepsis/SIRS related to aspiration PNA?HCAP. Preceding events seem to be vomiting , ?aspiration, CXR now with some densisties on R - C/S with PSAE and Kleb ESBL+ History of PSAE ESBL cath associated UTI. S/P Rx Leukocytosis, reactive due to current problem Previous C diff (+), no treated, improved - has had freq BM reported - will repeat if persistent and liquid Chronic respiratory failure on trach PSAE and ESBL Kleb in sputum in recent past. Chronic encephalopathy with underlying diagnosis of advanced dementia as well as advanced Parkinson's disease. Status post trach Status post gastrostomy tube with no evidence of infection. Stage II sacral decubitus ulcer present on admission. Recommendations Continue Zosyn IV (S on culture report) and clinically responding. - continue this weekend Continue Colistin nebs. CXR on Monday Monitor progress Is stable possibly D/C Zosyn Monday Bhavna Weeks MD Dec 04, 2015 10:16
[2015-12-04 11:54] LABS: BICARBONATE 34.2 MEQ/L (21.0-32.0); POTASSIUM 3.7 MEQ/L (3.5-5.1)
--- NOTE | 2015-12-04 11:57 | HHI.PR ---
Subjective Remarks Better today. More alert .On a T bar FIO2 50 %. No vomiting . On tube feeds. No fever. Objective Vital Signs Date Time Temp Pulse Resp B/P Pulse Ox O2 Delivery O2 Flow Rate FiO2 12/04/15 10:05 16 12/04/15 10:00 77 12/04/15 08:16 100 T-piece 50 12/04/15 08:00 90 12/04/15 08:00 99 T-Piece 6.00 50 12/04/15 08:00 98.1 80 16 116/83 96 12/04/15 07:50 100 40 12/04/15 07:50 100 BiPAP 40 12/04/15 06:00 77 12/04/15 04:12 100 40 12/04/15 04:00 91 12/04/15 04:00 98.0 91 26 124/87 99 12/04/15 04:00 99 Bi-Pap 40 T-Piece 12/04/15 02:00 87 12/04/15 00:00 90 12/04/15 00:00 97.8 90 24 123/78 97 12/04/15 00:00 97 Bi-Pap 40 T-Piece 12/03/15 23:58 98 40 12/03/15 22:00 84 12/03/15 20:00 98.1 79 20 122/81 96 12/03/15 20:00 90 12/03/15 20:00 96 Bi-Pap 40 T-Piece 12/03/15 19:38 98 40 12/03/15 18:00 95 12/03/15 16:00 97.7 110 20 154/74 94 12/03/15 16:00 102 12/03/15 16:00 99 T-Piece 6.00 50 12/03/15 15:45 97 40 12/03/15 14:00 95 12/03/15 13:07 97 45 12/03/15 12:00 99 T-Piece 6.00 50 12/03/15 12:00 102 I/O 12/03/15 12/03/15 12/03/15 12/04/15 12/04/15 12/04/15 07:00 15:00 23:00 07:00 15:00 23:00 Intake Total 1080 ml 1450 ml 1353 ml Output Total 300 ml 0 ml 800 ml 950 ml 0 ml Balance 780 ml 0 ml 650 ml 403 ml 0 ml IV Total 205 ml 600 ml 360 ml Tube Feeding 415 ml 850 ml 543 ml Other 460 ml 450 ml Output Urine Total 300 ml 800 ml 950 ml Tube Feeding Residual Discard 0 ml 0 ml 0 ml 0 ml 0 ml # Bowel Movements 3 2 1 Result Diagram: 12/03/1563112/03/15631 Objective Remarks This is a thin white male who is responsive , Lethargic,with a trach tube in place. HEENT: Pupils are equal and reactive to light. Throat clear CHEST:Decreased breath sounds, with wheeze scattered. CARDIOVASCULAR: S1 and S2 is normal.No murmur. ABDOMEN: Soft, nondistended. BS +. He has a PEG tube in place. EXTREMITIES: No edema.muscle wasting. NEURO: Alert, and has weak extremities, but moves arms. Skin is cool. Assessment and Plan Assessment and Plan IMPRESSION 1. Chronic Respiratory failure. 2. Sepsis, Aspiration. 3. Shock.Resolved. 4. Tracheobronchitis 5. Parkinson's disease 6. Dementia. 7. Severe Deconditioning. Plan : 1. Continue on 50 % T Bar daytime 2. Nebs qid , duoneb. 3. Resume tube feeds at 40 CC and Keep Head end up 45 degrees 4. Cont prednisone 5 mg daily. 5. Levsin .25 mg tid prn for Secretions 6. Cont Trach toilet and lavage. 8. Bipap at HS12/5 ,FIO2 40 % 9. IV NS at 50 CC 10. Antibiotics per ID. Darren Kiser MD Dec 04, 2015 11:56
[2015-12-04] MEDS: RESP: ALBUTEROL 2.5 MG/3 ML NEB (PRN) NEB (20:13)
[2015-12-04] MEDS: OLANZapine 5 MG TAB GT SCH (20:31)
[2015-12-04] MEDS: ENOXAPARIN SODIUM 40 MG/0.4 ML SYRINGE SQ SCH (20:33)
[2015-12-05] VITALS (17 sets, daily range): BP systolic 123–135; BP diastolic 77–92; PULSE 82–104; RESP 24–28; TEMP 98.1–98.8; O2SAT 96–100
[2015-12-05] MEDS: MORPHINE SULFATE 4 MG/ML INJ IV PUSH PRN (03:25)
[2015-12-05] MEDS: INSULIN NovoLIN REGULAR SUPPLEMENTAL SCALE SQ SCH ×5 (06:00→23:41)
[2015-12-05] MEDS: MIDODRINE 5 MG TAB G-TUBE SCH ×2 (08:47→20:48)
[2015-12-05] MEDS: QUEtiapine FUMARATE 25 MG TAB G-TUBE SCH ×2 (08:47→20:48)
[2015-12-05] MEDS: LANSOPRAZOLE SOLUTAB 30 MG TAB NG SCH (08:48)
[2015-12-05] MEDS: GABAPENTIN 300 MG CAP G-TUBE SCH ×2 (08:48→20:48)
[2015-12-05] MEDS: FREE WATER G-TUBE SCH ×4 (08:48→20:00)
[2015-12-05] MEDS: POTASSIUM CHLORIDE 10 MEQ CAP G-TUBE SCH ×2 (08:48→20:48)
[2015-12-05] MEDS: LACTOBACILLUS ACIDOPHILUS TAB PO SCH ×3 (08:48→17:17)
[2015-12-05] MEDS: ARTIFICIAL TEARS OPTH SOLN 15 ML BTL EACH EYE SCH ×3 (08:48→17:17)
[2015-12-05] MEDS: PARoxetine HCL 20 MG TAB G-TUBE SCH (08:48)
[2015-12-05] MEDS: COLLAGENASE OINT 30 GM TUBE TOP SCH (08:49)
[2015-12-05] MEDS: SODIUM CHLORIDE 0.9% FLUSH 5 ML FLUSH IVF SCH ×2 (08:49→20:49)
[2015-12-05] MEDS: CHLORHEXIDINE 0.12% (ORAL KIT) 15 ML CUP MT SCH ×2 (08:49→20:50)
[2015-12-05] MEDS: HYDROCORTISONE SOD SUCCINATE 100 MG VIAL IV PUSH SCH ×2 (08:49→20:49)
[2015-12-05] MEDS: RESP: COLISTIN 150 MG VIAL NEB SCH ×3 (08:58→20:39)
[2015-12-05] MEDS: PIPERACIL-TAZO 4.5 GM PREMIX 100 ML IV SCH ×2 (11:12→18:16)
[2015-12-05] MEDS: CARBIDOPA/LEVODOPA 25 MG/100 MG TAB GT SCH ×2 (14:30→20:48)
[2015-12-05] MEDS: clonazePAM 1 MG TAB PO SCH ×2 (14:30→20:48)
--- NOTE | 2015-12-05 16:34 | HHI.PR ---
Subjective Remarks The pt appeared uncomfortable. Per nursing he has been vomiting tube feeds, which have been held. Objective Vitals Vital Signs Date Time Temp Pulse Resp B/P Pulse Ox O2 Delivery O2 Flow Rate FiO2 12/05/15 14:00 91 12/05/15 12:00 92 12/05/15 12:00 96 T-Piece 6.00 40 12/05/15 12:00 98.8 86 24 123/81 100 12/05/15 10:00 92 12/05/15 09:00 100 T-piece 6.00 50 12/05/15 08:00 98.8 93 25 123/86 100 12/05/15 08:00 95 12/05/15 08:00 Bi-Pap 6.00 40 T-Piece 12/05/15 06:00 99 12/05/15 04:02 98 40 12/05/15 04:00 104 12/05/15 04:00 98.6 104 26 135/77 97 12/05/15 04:00 97 Bi-Pap 40 T-Piece 12/05/15 02:00 100 12/05/15 00:00 100 Bi-Pap 40 T-Piece 12/05/15 00:00 98.4 90 24 124/80 97 12/05/15 00:00 90 12/04/15 23:47 100 Bi-Pap 40 T-Piece 12/04/15 23:47 90 12/04/15 23:29 98 40 12/04/15 22:00 91 12/04/15 21:00 100 40 12/04/15 20:15 100 T-piece 5.00 50 12/04/15 20:00 98.2 96 24 124/79 100 12/04/15 20:00 100 Bi-Pap 40 T-Piece 12/04/15 20:00 76 12/04/15 18:00 90 I/O 12/04/15 12/04/15 12/04/15 12/05/15 12/05/15 12/05/15 07:00 15:00 23:00 07:00 15:00 23:00 Intake Total 1353 ml 1632 ml 639 ml 712 ml 740 ml Output Total 950 ml 850 ml 800 ml 900 ml 200 ml Balance 403 ml 782 ml -161 ml -188 ml 540 ml Intake Oral 0 ml IV Total 360 ml 632 ml 136 ml 201 ml 230 ml Tube Feeding 543 ml 600 ml 503 ml 511 ml 510 ml Other 450 ml 400 ml Output Urine Total 950 ml 850 ml 800 ml 900 ml 200 ml Tube Feeding Residual Discard 0 ml 0 ml 0 ml 0 ml # Bowel Movements 1 2 1 2 1 Result Diagram: 12/03/15 0632 12/04/15 1050 Imaging Last Impressions Chest X-Ray 12/04/15 0600 Signed Impressions: Service Date/Time: Friday, December 04, 2015 03:50 - CONCLUSION: Interstitial densities in the right lung. Néstor Matamoros MD Abdomen X-Ray 11/26/15 0000 Signed Impressions: Service Date/Time: November 12:34 - CONCLUSION: 1. Nonobstructive bowel gas pattern. 2. Stable position of gastrostomy tube. Multiple surgical screws secure the proximal left femur. 3. No obvious pneumoperitoneum on the single projection provided. Scott Goode MD Upper Extremity Ultrasound 10/13/15 0000 Signed Impressions: Service Date/Time: Tuesday, October 13, 2015 09:51 - CONCLUSION: 1. No evidence of deep venous thrombosis. John Anderson MD Renal Ultrasound 10/07/15 0000 Signed Impressions: Service Date/Time: Wednesday, October 07, 2015 18:29 - CONCLUSION: 1. No acute findings. 3.6 cm left renal cyst. Valdez catheter in bladder. Amaury Ellsworth MD Tunnelled Chest Tube Removal 08/05/15 1100 Signed Impressions: Service Date/Time: Wednesday, August 05, 2015 11:00 - CONCLUSION: Uncomplicated chest tube removal. Blaine Jackson MD Chest Tube Change 07/31/15 0000 Signed Impressions: Service Date/Time: Friday, July 31, 2015 14:34 - CONCLUSION: Uncomplicated reposition of previously placed chest tube as above. Blaine Jackson MD Chest Tube Insertion 07/30/15 0000 Signed Impressions: Service Date/Time: July 14:50 - CONCLUSION: Uncomplicated chest tube placement as above. Blaine Jackson MD Catheter Change 07/27/15 0000 Signed Impressions: Service Date/Time: Monday, July 27, 2015 14:43 - CONCLUSION: Uncomplicated gastrostomy tube exchange as above. Blaine Jackson MD Chest CT 07/11/15 0000 Signed Impressions: Service Date/Time: Saturday, July 11, 2015 09:49 - CONCLUSION: Scattered patchy densities significantly improved from previous study. Tiny anterior right basilar pneumothorax. Right-sided chest tube in good position. Néstor Matamoros MD Head CT 06/18/151902 Signed Impressions: Service Date/Time: June 19:31 - CONCLUSION: Diffuse atrophy unchanged. No acute intracranial findings. Kush Briscoe MD Abdomen/Pelvis CT 06/18/151902 Signed Impressions: Service Date/Time: June 19:36 - CONCLUSION: 1. Chronic nonspecific urinary bladder wall thickening. Bladder collapsed with Valdez catheter in place. 2. Chronic bilateral mid to lower lung zone groundglass opacity. 3. Nonobstructing left renal calculus. 4. Distended rectum. Kush Briscoe MD Objective Remarks GENERAL: Well-nourished, well-developed patient, uncomfortable SKIN: Warm and dry. HEAD: Normocephalic. EYES: No scleral icterus. No injection or drainage. NECK: Trach in place. CARDIOVASCULAR: Regular rate and rhythm without murmurs, gallops, or rubs. RESPIRATORY: Decreased secretions. Moderate air entry. Scattered rhonchi. GASTROINTESTINAL: Abdomen soft, non-tender, nondistended. MUSCULOSKELETAL: No edema. Contractures and deformities of fingers. Stage III coccyx/sacral decubitus ulcer. NEURO: Unresponsive to voice, not following commands. Procedures 07/26- PEG replacement 07/29- right pigtail catheter placement for new pneumothorax Medications and IVs Current Medications Medications (Trade) Dose Ordered Sig/Jassi Route Start Time Stop Time Status Last Admin (NS Flush) 2 ml UNSCH PRN IVF 06/18/15 21:30 12/01/15 08:57 (NS Flush) 2 ml BID IVF 06/19/15 09:00 12/04/15 20:33 (Tylenol 650 Mg/ 20 ml Liq) 650 mg Q6H PRN TUBE 06/18/15 21:30 11/28/15 00:30 (Tears Naturale Opth Soln) 1 drop TID EACH EYE 06/19/15 09:00 12/05/15 14:31 (Zofran Inj) 4 mg Q6H PRN IV 5/12/16 21:30 11/26/15 11:54 (Sinemet 25-100 Mg) 1 tab Q8HR GT 06/19/15 06:00 12/05/15 14:30 (Neurontin) 300 mg BID G-TUBE 06/19/15 09:00 12/05/15 08:48 (Lactinex) 1 tab TID PO 06/19/15 09:00 12/05/15 14:31 (Paxil) 20 mg DAILY G-TUBE 06/19/15 09:00 12/05/15 08:48 (Pill Splitter) 1 ea UNSCH PRN OTHER 06/19/15 03:30 06/28/15 09:35 (Prevacid Odt) 30 mg DAILY NG 07/08/15 09:00 12/05/15 08:48 (KlonoPIN) 2 mg Q8HR PO 07/09/15 14:00 12/05/15 14:30 (SEROquel) 50 mg BID G-TUBE 07/18/15 09:00 12/05/15 08:47 (Morphine Inj) 2 mg Q3H PRN IV PUSH 07/28/15 00:45 12/05/15 03:25 (Peridex 0.12% Liq) 15 ml BID@08,20 MT 07/29/15 20:00 12/05/15 08:49 (Ativan Inj) 0.5 mg Q6H PRN IVP 08/04/15 13:00 12/04/15 17:35 (Lovenox Inj) 40 mg Q24H SQ 08/09/15 22:00 12/04/15 20:33 ([place] 5-325 Mg) 1 tab Q6H PRN PO 08/15/15 15:45 12/04/15 17:36 (Sublimaze Inj) 50 mcg Q2H PRN IV PUSH 08/15/15 15:45 11/19/15 17:36 (ZyPREXA) 5 mg HS GT 08/15/15 21:00 12/04/15 20:31 (Santyl Oint) 1 applic DAILY TOP 08/21/15 09:00 12/05/15 08:49 (Levsin Liq) 0.125 mg Q4H PRN PO 09/06/15 11:00 11/28/15 05:05 (D50w (Vial) Inj) 25 ml UNSCH PRN IV PUSH 10/12/15 17:30 (Glucagon Inj) 1 mg UNSCH PRN OTHER 10/12/15 17:30 (NovoLIN R SUPPLEMENTAL SCALE) 1 Q6H SQ 10/12/15 18:00 12/05/15 11:13 (Reglan Inj) 5 mg Q8H PRN IV PUSH 10/13/15 08:30 (Proamatine) 2.5 mg BID G-TUBE 11/15/15 21:00 12/05/15 08:47 (Deltasone) 5 mg DAILY PO 11/18/15 09:00 Hold 11/28/15 09:13 Water 200 ml 200 ml Q4HR G-TUBE 11/19/15 00:00 12/05/15 11:12 Piperacillin Sod/ Tazobactam Sod 100 ml @ 200 mls/hr Q6HR IV 11/26/15 12:30 12/05/15 11:12 Potassium Chloride 100 ml @ 50 mls/hr Q2H PRN IV 11/28/15 13:30 12/03/15 08:10 (KCl 20 Meq Premix Inj) 100 ml @ 50 mls/hr Q2H PRN IV 11/28/15 13:30 11/30/15 12:14 Potassium Chloride 40 meq 40 meq UNSCH PRN PO/TUBE 11/28/15 13:30 Potassium Chloride 100 ml @ 25 mls/hr UNSCH PRN IV 11/28/15 13:30 Potassium Chloride 100 ml @ 50 mls/hr Q2H PRN IV 11/28/15 13:30 (Magnesium Sulfate Inj/NS Inj) 100 ml @ 50 mls/hr UNSCH PRN IV 11/28/15 13:30 Magnesium Oxide 800 mg 800 mg UNSCH PRN PO 11/28/15 13:30 (Magnesium Sulfate Inj/NS Inj) 100 ml @ 50 mls/hr UNSCH PRN IV 11/28/15 13:30 Potassium Phosphate 2000 mg 2,000 mg Q4H PRN PO 11/28/15 13:30 (Sodium Phosphate Inj/NS 250 ml Inj) 250 ml @ 42 mls/hr UNSCH PRN IV 11/28/15 13:30 (KCl 40 Meq/30 ml Liq) 40 meq UNSCH PRN PO/TUBE 11/28/15 13:30 Potassium Phosphate 2000 mg 2,000 mg UNSCH PRN PO/TUBE 11/28/15 13:30 (Potassium Phosphate Inj/NS 250 ml Inj) 260 ml @ 42 mls/hr UNSCH PRN IV 11/28/15 13:30 12/02/15 12:25 (SoluCORTEF INJ) 50 mg Q12HR IV PUSH 12/02/15 21:00 12/05/15 08:49 (KCl) 10 meq BID G-TUBE 12/03/15 21:00 12/05/15 08:48 Date of Insertion: Oct 05, 2015 A/P Problem List: (1) Sepsis due to urinary tract infection ICD Code: A41.9 Status: Resolved (2) Acute respiratory failure ICD Code: J96.00 Status: Resolved (3) Chronic respiratory failure ICD Code: J96.10 Status: Chronic (4) Parkinson disease ICD Code: G20 Status: Chronic (5) UTI (urinary tract infection) ICD Code: N39.0 Status: Acute (6) Encephalopathy ICD Code: G93.40 Status: Resolved Assessment and Plan 55 years old male with tracheostomy and PEG tube [facility] resident admitted for: Sepsis SHOCK - likely aspiration - Started IV zosyn. 11/25 valdez changed 11/26 ID ff Acute on chronic respiratory failure- now back on BiPAP Chronic tracheostomy Pneumonia S/P recurrent Right pneumothorax status post pigtail catheter removal Suction secretions Duo nebs 4 times a day and when necessary . colistin nebs Pulmonary ff Metabolic Encephalopathy - chronic Parkinson's disease Cognitive disorder/Underlying dementia Depression CT head 06/18/15: - diffuse atrophy unchanged. No acute intracranial findings Continue Sinemet 25/100 3 times a day via PEG, Seroquel 50 mg twice a day, olanzapine 5 mg a night, Klonopin 2 mg every 8 hours, Paxil 20 daily and Neurontin 300 mg twice a day. These medications have been slowly titrated up since admission Continue Roxanol 5 mg every 4 hours when necessary pain and fentanyl patch 50 g every 3 days for pain management. Cardiac History of orthostasis History of CAD, HLP, Hypertension Continue Midodrine 5 mg twice a day Monitor HR and BP keep MAP>65mmHg GI: Malnutrition/protein calorie - moderate Status post PEG Hemorrhoids Gastroesophageal reflux disease - holding tube feeds 12/04 as pt has been vomiting. Resume at lower rate in AM. - Current Colace/senna for bowel regimen. /metabolic: Nonobstructing left renal calculus Hypokalemia Hypernatremia - resolved Acute urinary retention - Monitor renal function, I/O's. electrolytes replacement per protocol. - Continue on Free H20 200ml 3 times a day monitor - ff electrolytes- replacement protocol ID: Candiduria ESBL positive Klebsiella/Pseudomonas pneumonia MRSA colonization - Multidrug resistant UTI- ESBL 02/19/15 , MRSA + 03/20/15 - Heena glabrata in urine 03/19/15 - Recheck blood, sputum and urine cultures 07/06 no growth - 06/17 - blood cultures 2 - CONS/staph epi - 06/17 - sputum - ESBL positive Klebsiella/Pseudomonas Treated 15 days with tobramycin aerosols twice a day. - 06/17 - urine - C. glabrata/tropicalis - treated with Diflucan --off Abx. monitor for signs of infections ( Fever, WBC) Endo: --SSI if needed for glycemic control Heme Anemia - Monitor CBC MSK Bilateral lower extremity Contractures Stage II DU - Wound care ff - Continue physical therapy - Santyl dressing- consult wound care nurse Prophylaxis - GI - Prevacid - DVT - SCDs/Lovenox Discharge Planning Awaiting clinical improvement. Salazar Santa DO Dec 05, 2015 16:34
[2015-12-05] MEDS: OLANZapine 5 MG TAB GT SCH (20:48)
[2015-12-05] MEDS: ENOXAPARIN SODIUM 40 MG/0.4 ML SYRINGE SQ SCH (20:49)
[2015-12-05] MEDS: SODIUM CHLORIDE 0.9% FLUSH 5 ML FLUSH IVF PRN (20:49)
[2015-12-06] VITALS (18 sets, daily range): BP systolic 99–149; BP diastolic 62–103; PULSE 71–88; RESP 21–39; TEMP 97.4–98.6; O2SAT 91–100
[2015-12-06] MEDS: FREE WATER G-TUBE SCH ×6 (01:08→20:00)
[2015-12-06] MEDS: PIPERACIL-TAZO 4.5 GM PREMIX 100 ML IV SCH ×4 (01:08→17:26)
[2015-12-06] MEDS: CARBIDOPA/LEVODOPA 25 MG/100 MG TAB GT SCH ×3 (05:28→21:47)
[2015-12-06] MEDS: clonazePAM 1 MG TAB PO SCH ×3 (05:28→21:46)
[2015-12-06] MEDS: INSULIN NovoLIN REGULAR SUPPLEMENTAL SCALE SQ SCH ×3 (06:00→17:26)
[2015-12-06] MEDS ORDERED: FUROSEMIDE 20 MG/2 ML VIAL IV PUSH ONE (06:30)
[2015-12-06] MEDS ORDERED: TERBUTALINE INJ 1 MG/ML AMP SQ PRN (06:45)
[2015-12-06] MEDS ORDERED: NOREPINEPHRINE-DEXTROSE DRIP 250 ML IV PRN (06:45)
--- NOTE | 2015-12-06 06:58 | HHI.PR ---
Addendum to Inpatient Note Addendum Reason: Additional Documentation Additional Information I was called by patient's nurse because patient's was vomiting actively from both his mouth, and PEG tube and trach tube. Nurse reported that patient was having vomiting which was productive of mostly feeding material starting yesterday around 1 PM. However this time his vomitus was totally coffee-ground color. Therefore ordered to put PEG tube into low intermittent suctioning and also to suction trach tube Came to see patient at the bedside. Chart reviewed. Patient is bedbound, contracted, pallor present, PEG tube and trach tube dependent. PEG tube suctioning has so far resulted 300 cc of coffee-ground color emesis. BP was 96/66. Heart rate 90. Saturation 98% after suctioning the emesis. This is on FiO2 of 40%. Abdomen is soft, nontender. However does seem to have suprapubic tenderness. Patient is a 40. No urine was resulted in it. Nursing staff reported that they have flushed it several times and there was no trouble with it. Later on on my recheck, patient does have urine in Putnam bag. No calf asymmetry or edema. Bilateral contracted limbs. Impression: Upper GI bleedlikely due to steroid induced/gastritis/esophagitis. Likely underlying GERD Aspiration History of diastolic heart failure Plan: Continue PEG tube on low intermittent suction. Continue to suction trach tube when necessary. Occult blood from emesis. Start on pantoprazole IV drip with bolus. Stat hemoglobin and hematocrit now and serially. RBC 2 units to be transfused now. No need to wait on hemoglobin hematocrit. Transfuse blood with each unit over 4 hours if the patient is hemodynamically stable or MAP greater than 60. Lasix 20 mg IV after each unit of transfusion. Start on Levophed if MAP is less than 60. Discuss with GI [employer] business [employer] consultant and updated on patient's situation. Critical care time 30 minutes Ligia Mulligan MD Dec 06, 2015 06:58
[2015-12-06 07:20] LABS: HEMATOCRIT 31.6 % (39.0-51.0); REVIEW FLAG FINAL
[2015-12-06] MEDS ORDERED: PANTOPRAZOLE INJ 80 MG in SODIUM CHLORIDE 0.9% INJ 100 ML IV SCH (07:30)
[2015-12-06] MEDS ORDERED: PANTOPRAZOLE INJ 80 MG in SODIUM CHLORIDE 0.9% INJ 35 ML IV ONE (07:30)
[2015-12-06 07:45] LABS: BICARBONATE 37.5 MEQ/L (21.0-32.0); MAGNESIUM 2.2 MG/DL (1.5-2.5); POTASSIUM 3.9 MEQ/L (3.5-5.1)
[2015-12-06] MEDS: RESP: COLISTIN 150 MG VIAL NEB SCH ×3 (08:03→20:12)
[2015-12-06] MEDS: CHLORHEXIDINE 0.12% (ORAL KIT) 15 ML CUP MT SCH ×2 (08:21→20:00)
--- NOTE | 2015-12-06 08:41 | RADRPT ---
EXAM DATE/TIME: 12/06/2015 08:05 [facility] COMPARISON: ABDOMEN KUB ONLY, November 26, 2015, 12:34. INDICATIONS : Vomiting. MEDICAL HISTORY : None. SURGICAL HISTORY : None. ENCOUNTER: Subsequent ACUITY: 1 week PAIN SCORE: Non-responsive. LOCATION: Abdomen. FINDINGS: Supine view of the abdomen was performed. There is a G-tube in place. The abdominal bowel gas patter n is normal. No abnormal masses, calcifications, or organomegaly is seen. Orthopedic screws are seen at the proximal left femur. CONCLUSION: No acute disease. Erlin Barajas MD on December 06, 2015 at 8:37 Board Certified Radiologist. This report was verified electronically.
[2015-12-06] MEDS: HYDROCORTISONE SOD SUCCINATE 100 MG VIAL IV PUSH SCH ×2 (08:43→21:46)
[2015-12-06] MEDS: ARTIFICIAL TEARS OPTH SOLN 15 ML BTL EACH EYE SCH ×3 (08:45→16:35)
[2015-12-06] MEDS: POTASSIUM CHLORIDE 10 MEQ CAP G-TUBE SCH ×2 (08:45→21:46)
[2015-12-06] MEDS: QUEtiapine FUMARATE 25 MG TAB G-TUBE SCH ×2 (08:46→21:46)
[2015-12-06] MEDS: MIDODRINE 5 MG TAB G-TUBE SCH ×2 (08:46→21:47)
[2015-12-06] MEDS: LACTOBACILLUS ACIDOPHILUS TAB PO SCH ×3 (08:46→17:26)
[2015-12-06] MEDS: SODIUM CHLORIDE 0.9% FLUSH 5 ML FLUSH IVF SCH ×2 (08:46→21:47)
[2015-12-06] MEDS: LANSOPRAZOLE SOLUTAB 30 MG TAB NG SCH (08:46)
[2015-12-06] MEDS: GABAPENTIN 300 MG CAP G-TUBE SCH ×2 (08:46→21:46)
[2015-12-06] MEDS: PARoxetine HCL 20 MG TAB G-TUBE SCH (08:46)
[2015-12-06] MEDS: COLLAGENASE OINT 30 GM TUBE TOP SCH (08:47)
--- NOTE | 2015-12-06 10:12 | HHI.GIFU ---
Subjective Remarks Pt had several episodes of vomiting up his TF yesterday via his mouth, PEG tube and trach tube yesterday afternoon Then last night he had 3 or 4 episodes of vomiting up coffee-ground emesis again through the mouth, PEG and trach He has his PEG tube to LIWS with about 450cc of dark emesis out since last night. This appears to be slowing down per nursing staff. Pt has been afebrile. He has been started on Protonix gtt. Pt had a normal BM last night per nursing staff, no melena or BRBPR (Elizabeth Sosa) Objective Vitals I&O Vital Signs Date Time Temp Pulse Resp B/P Pulse Ox O2 Delivery O2 Flow Rate FiO2 12/06/15 08:04 100 T-piece 6.00 50 12/06/15 06:00 88 12/06/15 04:05 98 40 12/06/15 04:00 83 12/06/15 04:00 98 Bi-Pap 40 12/06/15 04:00 98.6 83 30 135/94 98 12/06/15 02:00 98.4 85 27 149/103 99 12/06/15 02:00 85 12/06/15 01:05 99 40 12/06/15 00:00 84 12/06/15 00:00 Bi-Pap 40 T-Piece 12/05/15 22:15 96 40 12/05/15 22:00 82 12/05/15 20:47 100 40 12/05/15 20:42 100 T-piece 5.00 50 12/05/15 20:00 90 12/05/15 20:00 98.1 86 28 131/89 99 12/05/15 20:00 Bi-Pap 40 T-Piece 12/05/15 18:00 82 12/05/15 16:00 91 12/05/15 16:00 98.3 92 25 135/92 100 12/05/15 16:00 96 T-Piece 6.00 40 12/05/15 14:00 91 12/05/15 12:00 92 12/05/15 12:00 96 T-Piece 6.00 40 12/05/15 12:00 98.8 86 24 123/81 100 12/05/15 10:00 92 I/O 12/05/15 12/05/15 12/05/15 12/06/1530/16 10/30/16 07:00 15:00 23:00 07:00 15:00 23:00 Intake Total 712 ml 740 ml 327 ml 100 ml Output Total 900 ml 200 ml 200 ml 400 ml Balance -188 ml 540 ml 127 ml -300 ml Intake Oral 0 ml IV Total 201 ml 230 ml 127 ml 100 ml Tube Feeding 511 ml 510 ml 0 ml Other 200 ml Output Urine Total 900 ml 200 ml 200 ml 100 ml Gastric Drainage Total 300 ml Tube Feeding Residual Discard 0 ml # Bowel Movements 2 1 0 Laboratory Laboratory Tests Test 12/06/15 06:30 Hemoglobin 10.5 Hematocrit 31.6 Sodium Level 137 Potassium Level 3.9 Chloride Level 94 Carbon Dioxide Level 37.5 Anion Gap 6 Blood Urea Nitrogen 15 Creatinine 0.61 Estimat Glomerular Filtration 138 Rate Random Glucose 138 Calcium Level 8.7 Magnesium Level 2.2 Blood Type A POSITIVE Antibody Screen NEGATIVE Crossmatch Leukocyte-Reduced Red Blood Cells Blood Bank Comment Imaging Last Impressions Abdomen X-Ray 12/06/15 0000 Signed Impressions: Service Date/Time: Sunday, December 06, 2015 08:05 - CONCLUSION: No acute disease. Erlin Barajas MD Chest X-Ray 12/04/15 0600 Signed Impressions: Service Date/Time: Friday, December 04, 2015 03:50 - CONCLUSION: Interstitial densities in the right lung. Néstor Matamoros MD Upper Extremity Ultrasound 10/13/15 0000 Signed Impressions: Service Date/Time: Tuesday, October 13, 2015 09:51 - CONCLUSION: 1. No evidence of deep venous thrombosis. John Anderson MD Renal Ultrasound 10/07/15 0000 Signed Impressions: Service Date/Time: Wednesday, October 07, 2015 18:29 - CONCLUSION: 1. No acute findings. 3.6 cm left renal cyst. Putnam catheter in bladder. Amaury Ellsworth MD Tunnelled Chest Tube Removal 08/05/15 1100 Signed Impressions: Service Date/Time: Wednesday, August 05, 2015 11:00 - CONCLUSION: Uncomplicated chest tube removal. Blaine Jackson MD Chest Tube Change 07/31/15 0000 Signed Impressions: Service Date/Time: Friday, July 31, 2015 14:34 - CONCLUSION: Uncomplicated reposition of previously placed chest tube as above. Blaine Jackson MD Chest Tube Insertion 07/30/15 0000 Signed Impressions: Service Date/Time: July 14:50 - CONCLUSION: Uncomplicated chest tube placement as above. Blaine Jackson MD Catheter Change 07/27/15 0000 Signed Impressions: Service Date/Time: Monday, July 27, 2015 14:43 - CONCLUSION: Uncomplicated gastrostomy tube exchange as above. Blaine Jackson MD Chest CT 07/11/15 0000 Signed Impressions: Service Date/Time: Saturday, July 11, 2015 09:49 - CONCLUSION: Scattered patchy densities significantly improved from previous study. Tiny anterior right basilar pneumothorax. Right-sided chest tube in good position. Néstor Matamoros MD Head CT 06/18/151902 Signed Impressions: Service Date/Time: , June 18, 2015 19:31 - CONCLUSION: Diffuse atrophy unchanged. No acute intracranial findings. Kush Briscoe MD Abdomen/Pelvis CT 06/18/151902 Signed Impressions: Service Date/Time: June 19:36 - CONCLUSION: 1. Chronic nonspecific urinary bladder wall thickening. Bladder collapsed with Putnam catheter in place. 2. Chronic bilateral mid to lower lung zone groundglass opacity. 3. Nonobstructing left renal calculus. 4. Distended rectum. Kush Briscoe MD Physical Exam General: Patient is bedbound, contracted. Neck: Trach in place Chest: Decreased breath sounds Cardiac: Regular Abd: PEG tube in place to LIWS, minimal bowel sounds, soft nondistended Ext: Contractures of the upper and lower extremities Putnam cath in place (Elizabeth Sosa) Assessment and Plan Plan ASSESSMENT: - Vomiting with coffee-ground emesis noted. Pt had several episodes of vomiting of his TF via the mouth, PEG and trach reported on 12/04. Then last night he had 3-4 episodes of vomiting coffee-ground emesis via the mouth, PEG and trach. PEG placed to LIWS and had out about 300cc of dark emesis last night and about 150cc out this morning. H/H is stable currently. Pt has 2 units PRBCs on hold. - Ileus. Pt likely has an ileus with his issues with vomiting and very hypoactive bowel sounds, KUB was benign this morning. - Acute on chronic respiratory failure on BiPAP and T-piece, Pulmonary following. Pt felt to have had issues with aspiration. Currently on Zosyn. - Parkinson's disease/dementia. Chronically debilitated. Palliative Care following. PLAN: - Cont. PEG to LIWS, monitor output - Start Reglan 5mg IV Q8H - KUB in AM - Monitor H/H - Hold Lovenox for now - Cont. Protonix gtt - If continued vomiting or worsening abd distension consider CT Abd/pelvis - Possible EGD next week depending on clinical status. - Supportive care - the pt was seen and examined by myself and Dr. Garcia, this note was written on her behalf. (Elizabeth Sosa) Physician Comments seen, examined agree with above consider switching to g/j tube if no improvement ct abdomen/pelvis lfts, lipase, abdominal us (Edita Garcia MD) Elizabeth Sosa Dec 06, 2015 10:12 Edita Garcia MD Dec 06, 2015 15:57
[2015-12-06] MEDS: METOCLOPRAMIDE HCL 10 MG/2 ML VIAL IV PUSH SCH ×2 (11:38→18:00)
[2015-12-06 15:00] LABS: HEMATOCRIT 34.1 % (39.0-51.0); REVIEW FLAG FINAL
--- NOTE | 2015-12-06 15:47 | HHI.PR ---
Subjective Remarks The pt appeared comfortable. No evidence of emesis. Nursing mentioned that he is having bladder spasms. Objective Vitals Vital Signs Date Time Temp Pulse Resp B/P Pulse Ox O2 Delivery O2 Flow Rate FiO2 12/06/15 14:00 84 12/06/15 12:00 98.4 80 27 115/83 99 12/06/15 12:00 T-Piece 6.00 12/06/15 12:00 74 12/06/15 10:00 72 12/06/15 08:04 100 T-piece 6.00 50 12/06/15 08:00 98.4 80 27 115/83 99 12/06/15 08:00 71 12/06/15 08:00 100 T-Piece 6.00 12/06/15 06:00 88 12/06/15 04:05 98 40 12/06/15 04:00 83 12/06/15 04:00 98 Bi-Pap 40 12/06/15 04:00 98.6 83 30 135/94 98 12/06/15 02:00 98.4 85 27 149/103 99 12/06/15 02:00 85 12/06/15 01:05 99 40 12/06/15 00:00 84 12/06/15 00:00 Bi-Pap 40 T-Piece 12/05/15 22:15 96 40 12/05/15 22:00 82 12/05/15 20:47 100 40 12/05/15 20:42 100 T-piece 5.00 50 12/05/15 20:00 90 12/05/15 20:00 98.1 86 28 131/89 99 12/05/15 20:00 Bi-Pap 40 T-Piece 12/05/15 18:00 82 12/05/15 16:00 91 12/05/15 16:00 98.3 92 25 135/92 100 12/05/15 16:00 96 T-Piece 6.00 40 I/O 12/05/15 12/05/15 12/05/15 12/06/15 12/06/15 12/06/15 07:00 15:00 23:00 07:00 15:00 23:00 Intake Total 712 ml 740 ml 327 ml 100 ml 447 ml Output Total 900 ml 200 ml 200 ml 400 ml 400 ml Balance -188 ml 540 ml 127 ml -300 ml 47 ml Intake Oral 0 ml IV Total 201 ml 230 ml 127 ml 100 ml 447 ml Tube Feeding 511 ml 510 ml 0 ml 0 ml Other 200 ml Output Urine Total 900 ml 200 ml 200 ml 100 ml 100 ml Gastric Drainage Total 300 ml 300 ml Tube Feeding Residual Discard 0 ml # Bowel Movements 2 1 0 Result Diagram: 12/06/15 1400 12/06/15 0630 Imaging Last Impressions Abdomen X-Ray 12/06/15 0000 Signed Impressions: Service Date/Time: Sunday, December 06, 2015 08:05 - CONCLUSION: No acute disease. Erlin Barajas MD Chest X-Ray 12/04/15 0600 Signed Impressions: Service Date/Time: Friday, December 04, 2015 03:50 - CONCLUSION: Interstitial densities in the right lung. Néstor Matamoros MD Upper Extremity Ultrasound 10/13/15 0000 Signed Impressions: Service Date/Time: Tuesday, October 13, 2015 09:51 - CONCLUSION: 1. No evidence of deep venous thrombosis. John Anderson MD Renal Ultrasound 10/07/15 0000 Signed Impressions: Service Date/Time: Wednesday, October 07, 2015 18:29 - CONCLUSION: 1. No acute findings. 3.6 cm left renal cyst. Putnam catheter in bladder. Amaury Ellsworth MD Tunnelled Chest Tube Removal 08/05/15 1100 Signed Impressions: Service Date/Time: Wednesday, August 05, 2015 11:00 - CONCLUSION: Uncomplicated chest tube removal. Blaine Jackson MD Chest Tube Change 07/31/15 0000 Signed Impressions: Service Date/Time: Friday, July 31, 2015 14:34 - CONCLUSION: Uncomplicated reposition of previously placed chest tube as above. Blaine Jackson MD Chest Tube Insertion 07/30/15 0000 Signed Impressions: Service Date/Time: July 14:50 - CONCLUSION: Uncomplicated chest tube placement as above. Blaine Jackson MD Catheter Change 07/27/15 0000 Signed Impressions: Service Date/Time: Monday, July 27, 2015 14:43 - CONCLUSION: Uncomplicated gastrostomy tube exchange as above. Blaine Jackson MD Chest CT 07/11/15 0000 Signed Impressions: Service Date/Time: Saturday, July 11, 2015 09:49 - CONCLUSION: Scattered patchy densities significantly improved from previous study. Tiny anterior right basilar pneumothorax. Right-sided chest tube in good position. Néstor Matamoros MD Head CT 06/18/151902 Signed Impressions: Service Date/Time: June 19:31 - CONCLUSION: Diffuse atrophy unchanged. No acute intracranial findings. Kush Briscoe MD Abdomen/Pelvis CT 06/18/151902 Signed Impressions: Service Date/Time: June 19:36 - CONCLUSION: 1. Chronic nonspecific urinary bladder wall thickening. Bladder collapsed with Putnam catheter in place. 2. Chronic bilateral mid to lower lung zone groundglass opacity. 3. Nonobstructing left renal calculus. 4. Distended rectum. Kuhs Briscoe MD Objective Remarks GENERAL: Well-nourished, well-developed patient, uncomfortable SKIN: Warm and dry. HEAD: Normocephalic. EYES: No scleral icterus. No injection or drainage. NECK: Trach in place. CARDIOVASCULAR: Regular rate and rhythm without murmurs, gallops, or rubs. RESPIRATORY: Decreased secretions. Moderate air entry. Scattered rhonchi. GASTROINTESTINAL: Abdomen soft, non-tender, nondistended. MUSCULOSKELETAL: No edema. Contractures and deformities of fingers. Stage III coccyx/sacral decubitus ulcer. NEURO: Unresponsive to voice, not following commands. Procedures 07/26- PEG replacement 07/29- right pigtail catheter placement for new pneumothorax Medications and IVs Current Medications Medications (Trade) Dose Ordered Sig/Jassi Route Start Time Stop Time Status Last Admin (NS Flush) 2 ml UNSCH PRN IVF 06/18/15 21:30 12/05/15 20:49 (NS Flush) 2 ml BID IVF 06/19/15 09:00 12/05/15 20:49 (Tylenol 650 Mg/ 20 ml Liq) 650 mg Q6H PRN TUBE 06/18/15 21:30 11/28/15 00:30 (Tears Naturale Opth Soln) 1 drop TID EACH EYE 06/19/15 09:00 12/05/15 14:31 (Zofran Inj) 4 mg Q6H PRN IV 06/18/15 21:30 11/26/15 11:54 (Sinemet 25-100 Mg) 1 tab Q8HR GT 06/19/15 06:00 12/06/15 14:03 (Neurontin) 300 mg BID G-TUBE 06/19/15 09:00 12/05/15 20:48 (Lactinex) 1 tab TID PO 06/19/15 09:00 12/06/15 14:03 (Paxil) 20 mg DAILY G-TUBE 06/19/15 09:00 12/05/15 08:48 (Pill Splitter) 1 ea UNSCH PRN OTHER 06/19/15 03:30 06/28/15 09:35 (Prevacid Odt) 30 mg DAILY NG 07/08/15 09:00 12/05/15 08:48 (KlonoPIN) 2 mg Q8HR PO 07/09/15 14:00 12/06/15 14:03 (SEROquel) 50 mg BID G-TUBE 07/18/15 09:00 12/05/15 20:48 (Morphine Inj) 2 mg Q3H PRN IV PUSH 07/28/15 00:45 12/05/15 03:25 (Peridex 0.12% Liq) 15 ml BID@08,20 MT 07/29/15 20:00 12/06/15 08:21 (Ativan Inj) 0.5 mg Q6H PRN IVP 08/04/15 13:00 12/04/15 17:35 (Lovenox Inj) 40 mg Q24H SQ 08/09/15 22:00 Hold 12/05/15 20:49 ([place] 5-325 Mg) 1 tab Q6H PRN PO 08/15/15 15:45 12/04/15 17:36 (Sublimaze Inj) 50 mcg Q2H PRN IV PUSH 08/15/15 15:45 11/19/15 17:36 (ZyPREXA) 5 mg HS GT 08/15/15 21:00 12/05/15 20:48 (Santyl Oint) 1 applic DAILY TOP 08/21/15 09:00 12/06/15 08:47 (Levsin Liq) 0.125 mg Q4H PRN PO 09/06/15 11:00 11/28/15 05:05 (D50w (Vial) Inj) 25 ml UNSCH PRN IV PUSH 10/12/15 17:30 (Glucagon Inj) 1 mg UNSCH PRN OTHER 10/12/15 17:30 (NovoLIN R SUPPLEMENTAL SCALE) 1 Q6H SQ 10/12/15 18:00 12/05/15 11:13 (Proamatine) 2.5 mg BID G-TUBE 11/15/15 21:00 12/05/15 20:48 (Deltasone) 5 mg DAILY PO 11/18/15 09:00 Hold 11/28/15 09:13 Water 200 ml 200 ml Q4HR G-TUBE 11/19/15 00:00 12/06/15 11:39 Piperacillin Sod/ Tazobactam Sod 100 ml @ 200 mls/hr Q6HR IV 11/26/15 12:30 12/06/15 11:38 Potassium Chloride 100 ml @ 50 mls/hr Q2H PRN IV 11/28/15 13:30 12/03/15 08:10 (KCl 20 Meq Premix Inj) 100 ml @ 50 mls/hr Q2H PRN IV 11/28/15 13:30 11/30/15 12:14 Potassium Chloride 40 meq 40 meq UNSCH PRN PO/TUBE 11/28/15 13:30 Potassium Chloride 100 ml @ 25 mls/hr UNSCH PRN IV 11/28/15 13:30 Potassium Chloride 100 ml @ 50 mls/hr Q2H PRN IV 11/28/15 13:30 (Magnesium Sulfate Inj/NS Inj) 100 ml @ 50 mls/hr UNSCH PRN IV 11/28/15 13:30 Magnesium Oxide 800 mg 800 mg UNSCH PRN PO 11/28/15 13:30 (Magnesium Sulfate Inj/NS Inj) 100 ml @ 50 mls/hr UNSCH PRN IV 11/28/15 13:30 Potassium Phosphate 2000 mg 2,000 mg Q4H PRN PO 11/28/15 13:30 (Sodium Phosphate Inj/NS 250 ml Inj) 250 ml @ 42 mls/hr UNSCH PRN IV 11/28/15 13:30 (KCl 40 Meq/30 ml Liq) 40 meq UNSCH PRN PO/TUBE 11/28/15 13:30 Potassium Phosphate 2000 mg 2,000 mg UNSCH PRN PO/TUBE 11/28/15 13:30 (Potassium Phosphate Inj/NS 250 ml Inj) 260 ml @ 42 mls/hr UNSCH PRN IV 11/28/15 13:30 12/02/15 12:25 (SoluCORTEF INJ) 50 mg Q12HR IV PUSH 12/02/15 21:00 12/06/15 08:43 Potassium Chloride 10 meq 10 meq BID G-TUBE 12/03/15 21:00 12/05/15 20:48 Pantoprazole Sodium 80 mg/ Sodium Chloride 100 ml @ 10 mls/hr Q10H IV 12/06/15 07:30 12/06/15 06:49 (Levophed-Dextrose Drip) 250 ml @ 0 mls/hr TITRATE PRN IV 12/06/15 06:45 (Brethine Inj) 1 mg UNSCH PRN SQ 12/06/15 06:45 (Reglan Inj) 5 mg Q8H IV PUSH 12/06/15 10:00 12/06/15 11:38 Date of Insertion: Oct 05, 2015 A/P Problem List: (1) Sepsis due to urinary tract infection ICD Code: A41.9 Status: Resolved (2) Acute respiratory failure ICD Code: J96.00 Status: Resolved (3) Chronic respiratory failure ICD Code: J96.10 Status: Chronic (4) Parkinson disease ICD Code: G20 Status: Chronic (5) UTI (urinary tract infection) ICD Code: N39.0 Status: Acute (6) Encephalopathy ICD Code: G93.40 Status: Resolved Assessment and Plan 55 years old male with tracheostomy and PEG tube skilled nursing resident admitted for: Sepsis SHOCK - likely aspiration - Started IV Zosyn 11/25 Putnam changed 11/26 ID ff Acute on chronic respiratory failure- now back on BiPAP Chronic tracheostomy Pneumonia S/P recurrent Right pneumothorax status post pigtail catheter removal Suction secretions Duo nebs 4 times a day and when necessary . colistin nebs Pulmonary ff Metabolic Encephalopathy - chronic Parkinson's disease Cognitive disorder/Underlying dementia Depression CT head 06/18/15: - diffuse atrophy unchanged. No acute intracranial findings Continue Sinemet 25/100 3 times a day via PEG, Seroquel 50 mg twice a day, olanzapine 5 mg a night, Klonopin 2 mg every 8 hours, Paxil 20 daily and Neurontin 300 mg twice a day. These medications have been slowly titrated up since admission Continue Roxanol 5 mg every 4 hours when necessary pain and fentanyl patch 50 g every 3 days for pain management. Cardiac History of orthostasis History of CAD, HLP, Hypertension Continue Midodrine 5 mg twice a day Monitor HR and BP keep MAP>65mmHg GI Malnutrition/protein calorie - moderate Status post PEG Hemorrhoids Gastroesophageal reflux disease Concern for hematemesis 12/05. Started on Protonix gtt. GI evaluated pt. Gastroccult was negative and hemoglobin has not been decreasing. - holding tube feeds 12/04 as pt has been vomiting. Resume at lower rate in AM if stable. - Reglan per GI. - KUB. - Current Colace/senna for bowel regimen. - continue PPI. /metabolic: Nonobstructing left renal calculus Hypokalemia Hypernatremia - resolved Acute urinary retention - Monitor renal function, I/O's. electrolytes replacement per protocol. - Continue on Free H20 200ml 3 times a day monitor - ff electrolytes- replacement protocol ID: Candiduria ESBL positive Klebsiella/Pseudomonas pneumonia MRSA colonization - Multidrug resistant UTI- ESBL 02/19/15 , MRSA + 03/20/15 - Heena glabrata in urine 03/19/15 - Recheck blood, sputum and urine cultures 07/06 no growth - 06/17 - blood cultures 2 - CONS/staph epi - 06/17 - sputum - ESBL positive Klebsiella/Pseudomonas Treated 15 days with tobramycin aerosols twice a day. - 06/17 - urine - C. glabrata/tropicalis - treated with Diflucan - currently on Zosyn. Endo: --SSI if needed for glycemic control Heme Anemia - Monitor CBC MSK Bilateral lower extremity Contractures Stage II DU - Wound care ff - Continue physical therapy - Santyl dressing- consult wound care nurse Prophylaxis - GI - Prevacid - DVT - SCDs/Lovenox Discharge Planning Awaiting clinical improvement. Salazar Santa DO Dec 06, 2015 15:47
[2015-12-06 18:44] LABS: ALT (GPT) LESS THAN 6 U/L (12-78); AST (GOT) 16 U/L (15-37)
[2015-12-06 18:46] LABS: ALKALINE PHOSPHATASE 45 U/L (45-117); INDIRECT BILIRUBIN 0.5 MG/DL (0.0-0.8); TOTAL BILIRUBIN ADULT 0.7 MG/DL (0.2-1.0)
[2015-12-06] MEDS: OLANZapine 5 MG TAB GT SCH (21:46)
[2015-12-06] MEDS: MORPHINE SULFATE 4 MG/ML INJ IV PUSH PRN (21:48)
--- NOTE | 2015-12-06 22:15 | RADRPT ---
EXAM DATE/TIME: 12/06/2015 17:42 [facility] COMPARISON: No previous studies available for comparison. INDICATIONS : Nausea and vomiting. MEDICAL HISTORY : Hypercholesterolemia. Gastroesophageal reflux disease. Hypertension. Encephalopathy. Dementia. [place] son's disease. confusion. coronary artery disease. hemorroids. arthritis. diabetes. mrsa. c.diff. SURGICAL HISTORY : Back surgery. Throat surgery. ENCOUNTER: Initial ACUITY: 1 day PAIN SCORE: Nonresponsive. LOCATION: Abdomen. MEASUREMENTS: LIVER: 14.7 cm length COMMON DUCT: 5 mm RIGHT KIDNEY: 10.3 x 5.8 x 5.7 cm LEFT KIDNEY: 11.5 x 6.1 x 6.5 cm SPLEEN: 9.9 cm length AORTA: 1.8cm maximal FINDINGS: LIVER: Normal echotexture without focal lesion or ductal dilatation. COMMON DUCT: No intraluminal mass or stone visualized. GALLBLADDER: Contains no stones, demonstrates no wall thickening or pericholecystic fluid. PANCREAS: Not well visualized or evaluated.. RIGHT KIDNEY: No hydronephrosis, stone or mass.There is apparent mild pyelocaliectasis. LEFT KIDNEY: No hydronephrosis, stone or solid mass. A simple cyst is noted measuring 3.8 x 3.9 x 3.6 cm. SPLEEN: No focal lesion. AORTA: Not fully visualized. There is no evidence of aneurysm. IVC: Within normal limits. CONCLUSION: 1. The gallbladder is unremarkable with no evidence of cholelithiasis. 2. Simple cyst in the left kidney. 3. Mild pyelocaliectasis in the right kidney. Salazar Thurman MD on December 06, 2015 at 22:11 Board Certified Radiologist. This report was verified electronically.
[2015-12-07] VITALS (16 sets, daily range): BP systolic 80–96; BP diastolic 51–66; PULSE 7–83; RESP 18–35; TEMP 97.4–97.7; O2SAT 97–99
[2015-12-07] MEDS: FREE WATER G-TUBE SCH ×6 (04:00→20:00)
[2015-12-07] MEDS: METOCLOPRAMIDE HCL 10 MG/2 ML VIAL IV PUSH SCH ×3 (04:34→17:21)
[2015-12-07] MEDS: INSULIN NovoLIN REGULAR SUPPLEMENTAL SCALE SQ SCH ×4 (04:35→17:21)
[2015-12-07] MEDS: CARBIDOPA/LEVODOPA 25 MG/100 MG TAB GT SCH ×3 (04:39→22:30)
[2015-12-07] MEDS: clonazePAM 1 MG TAB PO SCH ×3 (04:40→22:31)
[2015-12-07] MEDS: PIPERACIL-TAZO 4.5 GM PREMIX 100 ML IV SCH ×4 (04:40→17:21)
[2015-12-07 04:54] LABS: MEAN CELL VOLUME 84.6 FL (80.0-100.0); MEAN CORPUSCULAR HEMOGLOBIN 28.2 PG (27.0-34.0); MEAN CORPUSCULAR HGB CONC 33.3 % (32.0-36.0); PLATELET COUNT 235 TH/MM3 (150-450); RED BLOOD COUNT 3.78 MIL/MM3 (4.50-5.90); RED CELL DISTRIBUTION WIDTH 16.2 % (11.6-17.2); REVIEW FLAG FINAL; WHITE BLOOD COUNT 18.3 TH/MM3 (4.0-11.0)
[2015-12-07 05:14] LABS: BICARBONATE 35.1 MEQ/L (21.0-32.0); MAGNESIUM 2.2 MG/DL (1.5-2.5); POTASSIUM 4.3 MEQ/L (3.5-5.1)
--- NOTE | 2015-12-07 05:45 | RADRPT ---
EXAM DATE/TIME: 12/07/2015 03:34 [facility] COMPARISON: CHEST SINGLE AP, December 02, 2015, 5:24. CHEST SINGLE AP, December 04, 2015, 3:50. INDICATIONS : Shortness of breath, possible pulmonary disease. MEDICAL HISTORY : Hypertension. Gastroesophageal reflux disease. Diabetes mellitus type II. SURGICAL HISTORY : Tracheostomy ENCOUNTER: Subsequent ACUITY: 1 month PAIN SCORE: Non-responsive. LOCATION: Bilateral chest FINDINGS: Tracheostomy in place. Right subclavian catheter tip projects over the cavoatrial junction. Asymmet mery interstitial prominence left mid and lower lung is slightly improved when compared to 12/02/15. The right lung is clear. The heart is normal size. CONCLUSION: Right lung is clear. Slight improvement of interstitial infiltrates left mid and lower lung. Tai Jaquez MD on December 07, 2015 at 5:42 Board Certified Radiologist. This report was verified electronically.
--- NOTE | 2015-12-07 05:46 | RADRPT ---
EXAM DATE/TIME: 12/07/2015 03:40 [facility] COMPARISON: ABDOMEN KUB ONLY, December 06, 2015, 8:05. INDICATIONS : Abdominal distention. MEDICAL HISTORY : Hypertension. Gastroesophageal reflux disease. Diabetes mellitus type II. SURGICAL HISTORY : Tracheostomy ENCOUNTER: Subsequent ACUITY: 1 month PAIN SCORE: Non-responsive. LOCATION: Bilateral Abdomen FINDINGS: Patient motion causes some blurring of the image. G-tube balloon is present. No dilated loops of sm all large bowel. Curvature of the thoracic and lumbar spine convex to the right is probably position al. Visualized lower lungs are clear. CONCLUSION: No dilated loops of small or large bowel. Tai Jaquez MD on December 07, 2015 at 5:44 Board Certified Radiologist. This report was verified electronically.
[2015-12-07] MEDS: CHLORHEXIDINE 0.12% (ORAL KIT) 15 ML CUP MT SCH ×2 (08:00→20:00)
[2015-12-07] MEDS: RESP: COLISTIN 150 MG VIAL NEB SCH ×2 (08:13→16:05)
--- NOTE | 2015-12-07 09:26 | HHI.IDPN ---
Subjective Subjective Remarks ID COVERAGE Notes reviewed Temps ok BP ok Problems with vomiting this weekend PEG to LIWS No vomiting today On trach collar currently CXR better WBC up to 18K this morning He well-known to the ID service. Has been treated for multiple infections including pneumonia and UTI. On November 25 patient vomited tube feedings. He subsequently developed more respiratory problem, became hypotensive, and transferred to the intensive care unit. He is not febrile. Antibiotics Zosyn IV Colistin nebs Lines Peripheral IV with no e/o infection Past Medical History reviewed Allergies: Coded Allergies: *MDRO Multi-Drug Resistant Organism (Verified Adverse Reaction, Unknown, 12/01/15) ESBL E. coli (urine) - 02/19/2015; ESBL K. 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 Vital Signs Date Time Temp Pulse Resp B/P Pulse Ox O2 Delivery O2 Flow Rate FiO2 12/07/15 08:24 99 T-piece 40 12/07/15 06:00 68 12/07/15 05:49 98 T-piece 5.00 40 12/07/15 04:20 98 40 12/07/15 04:00 97.5 83 35 89/66 98 12/07/15 04:00 Bi-Pap 12/07/15 04:00 83 12/07/15 02:00 69 12/07/15 01:07 99 40 12/07/15 00:00 97.7 75 24 80/61 98 12/07/15 00:00 75 12/07/15 00:00 Bi-Pap 12/06/15 22:19 99 40 12/06/15 22:00 88 12/06/15 20:21 100 40 12/06/15 20:00 81 12/06/15 20:00 T-Piece 6.00 12/06/15 20:00 97.4 81 39 99/62 100 12/06/15 19:23 99 T-piece 5.00 50 12/06/15 18:00 88 12/06/15 16:00 77 12/06/15 16:00 T-Piece 6.00 12/06/15 16:00 98.0 80 21 128/82 91 12/06/15 14:00 84 12/06/15 12:00 98.4 80 27 115/83 99 12/06/15 12:00 T-Piece 6.00 12/06/15 12:00 74 12/06/15 10:00 72 12/06/15 12/06/15 12/07/15 15:00 23:00 07:00 Intake Total 447 ml 149 ml 44 ml Output Total 400 ml 100 ml 100 ml Balance 47 ml 49 ml -56 ml IV Total 447 ml 149 ml 44 ml Tube Feeding 0 ml Output Urine Total 100 ml 100 ml 100 ml Gastric Drainage Total 300 ml # Bowel Movements 1 . Laboratory Tests Test 12/06/15 12/06/15 12/07/15 06:30 14:00 04:35 Hemoglobin 10.5 GM/DL 11.4 GM/DL 10.7 GM/DL Hematocrit 31.6 % 34.1 % 32.0 % White Blood Count 18.3 TH/MM3 Red Blood Count 3.78 MIL/MM3 Mean Corpuscular Volume 84.6 FL Mean Corpuscular Hemoglobin 28.2 PG Mean Corpuscular Hemoglobin 33.3 % Concent Red Cell Distribution Width 16.2 % Platelet Count 235 TH/MM3 Mean Platelet Volume 9.2 FL Laboratory Tests Test 12/06/15 12/06/15 12/07/15 06:30 17:23 04:35 Sodium Level 137 MEQ/L 139 MEQ/L Potassium Level 3.9 MEQ/L 4.3 MEQ/L Chloride Level 94 MEQ/L 96 MEQ/L Carbon Dioxide Level 37.5 MEQ/L 35.1 MEQ/L Anion Gap 6 MEQ/L 8 MEQ/L Blood Urea Nitrogen 15 MG/DL 24 MG/DL Creatinine 0.61 MG/DL 1.21 MG/DL Estimat Glomerular Filtration 138 ML/MIN 63 ML/MIN Rate Random Glucose 138 MG/DL 132 MG/DL Calcium Level 8.7 MG/DL 9.3 MG/DL Magnesium Level 2.2 MG/DL 2.2 MG/DL Total Bilirubin 0.7 MG/DL Direct Bilirubin 0.2 MG/DL Indirect Bilirubin 0.5 MG/DL Aspartate Amino Transf 16 U/L (AST/SGOT) Alanine Aminotransferase LESS THAN 6 U/L (ALT/SGPT) Alkaline Phosphatase 45 U/L Total Protein 6.1 GM/DL Albumin 2.4 GM/DL Lipase 244 U/L Microbiology Date/Time Procedure Status Source Growth 12/06/15 06:30 Gastric Occult Blood - Final Complete Gastric GASTROCCULT NEGATIVE Imaging Abdomen X-Ray 12/07/15 0600 Signed Impressions: Service Date/Time: Monday, December 07, 2015 03:40 - CONCLUSION: No dilated loops of small or large bowel. Tai Jaquez MD Chest X-Ray 12/07/15 0000 Signed Impressions: Service Date/Time: Monday, December 07, 2015 03:34 - CONCLUSION: Right lung is clear. Slight improvement of interstitial infiltrates left mid and lower lung. Tai Jaquez MD Abdomen X-Ray 12/06/15 0000 Signed Impressions: Service Date/Time: Sunday, December 06, 2015 08:05 - CONCLUSION: No acute disease. Erlin Barajas MD Abdomen Ultrasound 12/06/15 0000 Signed Impressions: Service Date/Time: Sunday, December 06, 2015 17:42 - CONCLUSION: 1. The gallbladder is unremarkable with no evidence of cholelithiasis. 2. Simple cyst in the left kidney. 3. Mild pyelocaliectasis in the right kidney. Salazar Thurman MD Chest X-Ray 12/04/15 0600 Signed Impressions: Service Date/Time: Friday, December 04, 2015 03:50 - CONCLUSION: Interstitial densities in the right lung. Néstor Matamoros MD Chest X-Ray 11/28/15 0000 Signed Impressions: Service Date/Time: Saturday, November 28, 2015 00:21 - CONCLUSION: No acute cardiopulmonary disease. Eugene Schmid MD Abdomen X-Ray 11/26/15 0000 Signed Impressions: Service Date/Time: November 12:34 - CONCLUSION: 1. Nonobstructive bowel gas pattern. 2. Stable position of gastrostomy tube. Multiple surgical screws secure the proximal left femur. 3. No obvious pneumoperitoneum on the single projection provided. Scott Goode MD Upper Extremity Ultrasound 10/13/15 0000 Signed Impressions: Service Date/Time: Tuesday, October 13, 2015 09:51 - CONCLUSION: 1. No evidence of deep venous thrombosis. John Anderson MD Renal Ultrasound 10/07/15 0000 Signed Impressions: Service Date/Time: Wednesday, October 07, 2015 18:29 - CONCLUSION: 1. No acute findings. 3.6 cm left renal cyst. Putnam catheter in bladder. Amaury Ellsworth MD Tunnelled Chest Tube Removal 08/05/15 1100 Signed Impressions: Service Date/Time: Wednesday, August 05, 2015 11:00 - CONCLUSION: Uncomplicated chest tube removal. Blaine Jackson MD Chest Tube Change 07/31/15 0000 Signed Impressions: Service Date/Time: Friday, July 31, 2015 14:34 - CONCLUSION: Uncomplicated reposition of previously placed chest tube as above. Blaine Jackson MD Chest Tube Insertion 07/30/15 0000 Signed Impressions: Service Date/Time: July 14:50 - CONCLUSION: Uncomplicated chest tube placement as above. Blaine Jackson MD Catheter Change 07/27/15 0000 Signed Impressions: Service Date/Time: Monday, July 27, 2015 14:43 - CONCLUSION: Uncomplicated gastrostomy tube exchange as above. Blaine Jackson MD Chest CT 07/11/15 0000 Signed Impressions: Service Date/Time: Saturday, July 11, 2015 09:49 - CONCLUSION: Scattered patchy densities significantly improved from previous study. Tiny anterior right basilar pneumothorax. Right-sided chest tube in good position. Néstor Matamoros MD Head CT 06/18/151902 Signed Impressions: Service Date/Time: June 19:31 - CONCLUSION: Diffuse atrophy unchanged. No acute intracranial findings. Kush Briscoe MD Abdomen/Pelvis CT 06/18/151902 Signed Impressions: Service Date/Time: June 19:36 - CONCLUSION: 1. Chronic nonspecific urinary bladder wall thickening. Bladder collapsed with Putnam catheter in place. 2. Chronic bilateral mid to lower lung zone groundglass opacity. 3. Nonobstructing left renal calculus. 4. Distended rectum. Kush Briscoe MD Physical Exam GENERAL: Eyes open, not interacting, not SOB, on T-piece SKIN: Cool and moist. No generalized rash. No cyanosis. HEENT: [place] conjunctivae, no icterus, moist mucosa. NECK: Trach site looks ok. Neck is supple RESPIRATORY: Scattered rhonchi GASTROINTESTINAL: Abdomen soft, not distended. Got some agitation during palpation. No guarding. PEG site looks okay. MUSCULOSKELETAL: No cyanosis No pedal edema. Contracted all 4 extremities. NEUROLOGICAL: Eyes open, Extremities contracted Peripheral IV line sites with no evidence of infection. ; Putnam in place, urine looks clear Assessment & Plan Remarks IMPRESSION Sepsis/SIRS related to aspiration PNA?HCAP. Preceding events seem to be vomiting , ?aspiration, CXR now with some densisties on R - C/S with PSAE and Kleb ESBL+ History of PSAE ESBL cath associated UTI. S/P Rx Leukocytosis, reactive due to current problem Previous C diff (+), no treated, improved - has had freq BM reported - will repeat if persistent and liquid Chronic respiratory failure on trach PSAE and ESBL Kleb in sputum in recent past. Chronic encephalopathy with underlying diagnosis of advanced dementia as well as advanced Parkinson's disease. Status post trach Status post gastrostomy tube with no evidence of infection. Stage II sacral decubitus ulcer present on admission. Intermittent vomiting Leukocytosis Recommendations Continue Zosyn IV Continue Colistin nebs. Monitor progress Will determine end date for Zosyn if he remains stable Follow CBC Bhavna Weeks MD Dec 07, 2015 09:26
[2015-12-07] MEDS: LACTOBACILLUS ACIDOPHILUS TAB PO SCH ×3 (09:39→17:21)
[2015-12-07] MEDS: MIDODRINE 5 MG TAB G-TUBE SCH ×2 (09:39→22:30)
[2015-12-07] MEDS: QUEtiapine FUMARATE 25 MG TAB G-TUBE SCH ×2 (09:39→22:31)
[2015-12-07] MEDS: PARoxetine HCL 20 MG TAB G-TUBE SCH (09:39)
[2015-12-07] MEDS: LANSOPRAZOLE SOLUTAB 30 MG TAB NG SCH (09:39)
[2015-12-07] MEDS: GABAPENTIN 300 MG CAP G-TUBE SCH ×2 (09:39→22:31)
[2015-12-07] MEDS: PANTOPRAZOLE SOD 40 MG DELAYED RELEASE TAB PO SCH (09:39)
[2015-12-07] MEDS: SODIUM CHLORIDE 0.9% FLUSH 5 ML FLUSH IVF SCH ×2 (09:40→21:00)
[2015-12-07] MEDS: HYDROCORTISONE SOD SUCCINATE 100 MG VIAL IV PUSH SCH ×2 (09:40→22:30)
[2015-12-07] MEDS: ARTIFICIAL TEARS OPTH SOLN 15 ML BTL EACH EYE SCH ×3 (09:41→17:21)
[2015-12-07] MEDS: POTASSIUM CHLORIDE 10 MEQ CAP G-TUBE SCH ×2 (09:41→22:30)
[2015-12-07] MEDS: COLLAGENASE OINT 30 GM TUBE TOP SCH (09:43)
--- NOTE | 2015-12-07 09:45 | HHI.GIFU ---
Subjective Remarks Resting in bed in no distress. Nonverbal. No vomiting so far today. PEG tube to suction. + BM. (Bernie Hill) Objective Vitals I&O Vital Signs Date Time Temp Pulse Resp B/P Pulse Ox O2 Delivery O2 Flow Rate FiO2 12/07/15 08:24 99 T-piece 40 12/07/15 06:00 68 12/07/15 05:49 98 T-piece 5.00 40 12/07/15 04:20 98 40 12/07/15 04:00 97.5 83 35 89/66 98 12/07/15 04:00 Bi-Pap 12/07/15 04:00 83 12/07/15 02:00 69 12/07/15 01:07 99 40 12/07/15 00:00 97.7 75 24 80/61 98 12/07/15 00:00 75 12/07/15 00:00 Bi-Pap 12/06/15 22:19 99 40 12/06/15 22:00 88 12/06/15 20:21 100 40 12/06/15 20:00 81 12/06/15 20:00 T-Piece 6.00 12/06/15 20:00 97.4 81 39 99/62 100 12/06/15 19:23 99 T-piece 5.00 50 12/06/15 18:00 88 12/06/15 16:00 77 12/06/15 16:00 T-Piece 6.00 12/06/15 16:00 98.0 80 21 128/82 91 12/06/15 14:00 84 12/06/15 12:00 98.4 80 27 115/83 99 12/06/15 12:00 T-Piece 6.00 12/06/15 12:00 74 12/06/15 10:00 72 I/O 12/06/15 12/06/15 12/06/15 12/07/15 12/07/15 12/07/15 07:00 15:00 23:00 07:00 15:00 23:00 Intake Total 100 ml 447 ml 149 ml 44 ml Output Total 400 ml 400 ml 100 ml 100 ml 1300 ml Balance -300 ml 47 ml 49 ml -56 ml -1300 ml IV Total 100 ml 447 ml 149 ml 44 ml Tube Feeding 0 ml Output Urine Total 100 ml 100 ml 100 ml 100 ml 1300 ml Gastric Drainage Total 300 ml 300 ml # Bowel Movements 1 Laboratory Laboratory Tests Test 12/06/15 12/06/15 12/07/15 14:00 17:23 04:35 Hemoglobin 11.4 10.7 Hematocrit 34.1 32.0 Total Bilirubin 0.7 Direct Bilirubin 0.2 Indirect Bilirubin 0.5 Aspartate Amino Transf 16 (AST/SGOT) Alanine Aminotransferase LESS THAN 6 (ALT/SGPT) Alkaline Phosphatase 45 Total Protein 6.1 Albumin 2.4 Lipase 244 White Blood Count 18.3 Red Blood Count 3.78 Mean Corpuscular Volume 84.6 Mean Corpuscular Hemoglobin 28.2 Mean Corpuscular Hemoglobin 33.3 Concent Red Cell Distribution Width 16.2 Platelet Count 235 Mean Platelet Volume 9.2 Sodium Level 139 Potassium Level 4.3 Chloride Level 96 Carbon Dioxide Level 35.1 Anion Gap 8 Blood Urea Nitrogen 24 Creatinine 1.21 Estimat Glomerular Filtration 63 Rate Random Glucose 132 Calcium Level 9.3 Magnesium Level 2.2 Date/Time Procedure Status Source Growth 12/06/15 06:30 Gastric Occult Blood - Final Complete Gastric GASTROCCULT NEGATIVE Imaging Last Impressions Abdomen X-Ray 12/07/15 0600 Signed Impressions: Service Date/Time: Monday, December 07, 2015 03:40 - CONCLUSION: No dilated loops of small or large bowel. Tai Jaquez MD Chest X-Ray 12/07/15 0000 Signed Impressions: Service Date/Time: Monday, December 07, 2015 03:34 - CONCLUSION: Right lung is clear. Slight improvement of interstitial infiltrates left mid and lower lung. Tai Jaquez MD Abdomen Ultrasound 12/06/15 0000 Signed Impressions: Service Date/Time: Sunday, December 06, 2015 17:42 - CONCLUSION: 1. The gallbladder is unremarkable with no evidence of cholelithiasis. 2. Simple cyst in the left kidney. 3. Mild pyelocaliectasis in the right kidney. Salazar Thurman MD Upper Extremity Ultrasound 10/13/15 0000 Signed Impressions: Service Date/Time: Tuesday, October 13, 2015 09:51 - CONCLUSION: 1. No evidence of deep venous thrombosis. John Anderson MD Renal Ultrasound 10/07/15 0000 Signed Impressions: Service Date/Time: Wednesday, October 07, 2015 18:29 - CONCLUSION: 1. No acute findings. 3.6 cm left renal cyst. Putnam catheter in bladder. Amaury Ellwsorth MD Tunnelled Chest Tube Removal 08/05/15 1100 Signed Impressions: Service Date/Time: Wednesday, August 05, 2015 11:00 - CONCLUSION: Uncomplicated chest tube removal. Blaine Jackson MD Chest Tube Change 07/31/15 0000 Signed Impressions: Service Date/Time: Friday, July 31, 2015 14:34 - CONCLUSION: Uncomplicated reposition of previously placed chest tube as above. Blaine Jackson MD Chest Tube Insertion 07/30/15 0000 Signed Impressions: Service Date/Time: July 14:50 - CONCLUSION: Uncomplicated chest tube placement as above. Blaine Jackson MD Catheter Change 07/27/15 0000 Signed Impressions: Service Date/Time: Monday, July 27, 2015 14:43 - CONCLUSION: Uncomplicated gastrostomy tube exchange as above. Blaine Jackson MD Chest CT 07/11/15 0000 Signed Impressions: Service Date/Time: Saturday, July 11, 2015 09:49 - CONCLUSION: Scattered patchy densities significantly improved from previous study. Tiny anterior right basilar pneumothorax. Right-sided chest tube in good position. Néstor Matamoros MD Head CT 06/18/151902 Signed Impressions: Service Date/Time: June 19:31 - CONCLUSION: Diffuse atrophy unchanged. No acute intracranial findings. Kush Briscoe MD Abdomen/Pelvis CT 06/18/151902 Signed Impressions: Service Date/Time: June 19:36 - CONCLUSION: 1. Chronic nonspecific urinary bladder wall thickening. Bladder collapsed with Putnam catheter in place. 2. Chronic bilateral mid to lower lung zone groundglass opacity. 3. Nonobstructing left renal calculus. 4. Distended rectum. Kush Briscoe MD Physical Exam General: Patient is bedbound, contracted. Neck: Trach in place with T Bar Chest: Decreased breath sounds Cardiac: Regular Abd: PEG tube in place to LIWS, minimal bowel sounds, soft nondistended Ext: Contractures of the upper and lower extremities Putnam cath in place (Bernie Hill) Assessment and Plan Plan ASSESSMENT: - Vomiting with coffee-ground emesis noted. Pt had several episodes of vomiting of his TF via the mouth, PEG and trach reported on 12/04. Monday night, he had 3-4 episodes of vomiting coffee-ground emesis via the mouth, PEG and trach. PEG placed to LIWS. He has not had further episodes. H/H is stable currently at 10.7/32.0. Pt has 2 units PRBCs on hold. - Ileus. Abdomen X-Ray (12/07/15)---> No dilated loops of small or large bowel. Reglan - Acute on chronic respiratory failure on BiPAP and T-piece, Pulmonary following. Pt felt to have had issues with aspiration. Currently on - Parkinson's disease/dementia. Chronically debilitated. Palliative Care following. PLAN: - Plan for egd today - Obtain consents- Attempted to call daughter Radha Foreman to discuss procedure, risks, benefits. No answer, message left. - NPO for now - PEG to LIWS - Reglan 5mg IV Q8H - Monitor H/H - Hold Lovenox for now - Cont. Protonix - Of note, Windshield Installer recommends Jevity 1.5 at 60cc/hr - Supportive care - the pt was seen and examined by myself and Dr. Rico, this note was written on his behalf. (Bernie Hill) Physician Comments Patient seen and examined Agree with above Continue with current supportive care Monitor labs EGD once we obtain consent or if actively bleeding (Devin Rico MD) Bernie Hill Dec 07, 2015 09:45 Devin Rico MD Dec 07, 2015 22:17
--- NOTE | 2015-12-07 12:12 | HHI.PR ---
Subjective Remarks Lethargic today.On a T bar FIO2 40 %. No vomiting . On tube feeds 400 CC. No fever. Objective Vital Signs Date Time Temp Pulse Resp B/P Pulse Ox O2 Delivery O2 Flow Rate FiO2 12/07/15 10:00 67 12/07/15 08:24 99 T-piece 40 12/07/15 08:00 67 12/07/15 08:00 96 T-Piece 6.00 35 12/07/15 08:00 97.6 7 25 82/53 99 12/07/15 06:00 68 12/07/15 05:49 98 T-piece 5.00 40 12/07/15 04:20 98 40 12/07/15 04:00 97.5 83 35 89/66 98 12/07/15 04:00 Bi-Pap 12/07/15 04:00 83 12/07/15 02:00 69 12/07/15 01:07 99 40 12/07/15 00:00 97.7 75 24 80/61 98 12/07/15 00:00 75 12/07/15 00:00 Bi-Pap 12/06/15 22:19 99 40 12/06/15 22:00 88 12/06/15 20:21 100 40 12/06/15 20:00 81 12/06/15 20:00 T-Piece 6.00 12/06/15 20:00 97.4 81 39 99/62 100 12/06/15 19:23 99 T-piece 5.00 50 12/06/15 18:00 88 12/06/15 16:00 77 12/06/15 16:00 T-Piece 6.00 12/06/15 16:00 98.0 80 21 128/82 91 12/06/15 14:00 84 I/O 12/06/15 12/06/15 12/06/15 12/07/15 12/07/15 12/07/15 07:00 15:00 23:00 07:00 15:00 23:00 Intake Total 100 ml 447 ml 149 ml 44 ml Output Total 400 ml 400 ml 100 ml 100 ml 1300 ml Balance -300 ml 47 ml 49 ml -56 ml -1300 ml IV Total 100 ml 447 ml 149 ml 44 ml Tube Feeding 0 ml Output Urine Total 100 ml 100 ml 100 ml 100 ml 1300 ml Gastric Drainage Total 300 ml 300 ml # Bowel Movements 1 Result Diagram: 12/07/1543412/07/15434 Objective Remarks This is a thin white male who is responsive , Lethargic,with a trach tube in place. HEENT: Pupils are equal and reactive to light. Throat clear CHEST:Decreased breath sounds, Occ basal crackles,with wheeze scattered. CARDIOVASCULAR: S1 and S2 is normal.No murmur. ABDOMEN: Soft, nondistended. BS +. He has a PEG tube in place. EXTREMITIES: No edema.muscle wasting. NEURO: Alert, and has weak extremities, but moves arms. Skin is cool. Assessment and Plan Assessment and Plan IMPRESSION 1. Chronic Respiratory failure. 2. Sepsis, Aspiration. 3. Shock.Resolved. 4. Tracheobronchitis 5. Parkinson's disease 6. Dementia. 7. Severe Deconditioning. Plan : 1. Continue on 40 % T Bar daytime 2. Nebs qid , duoneb. 3. Resume tube feeds at 40 CC and Keep Head end up 45 degrees 4. Cont prednisone 5 mg daily. 5. Levsin .25 mg tid prn for Secretions 6. Cont Trach toilet and lavage. 8. Bipap at HS12/5 ,FIO2 35 % 9. IV NS ,KVO. 10. Antibiotics per ID. Darren Kiser MD Dec 07, 2015 12:12
--- NOTE | 2015-12-07 12:15 | HHI.HCPN ---
Reason for visit a. To assist with evaluation and management of symptoms including: secretions, dyspnea. b. To assist medical decision maker(s) with: better understanding of current medical conditions; weighing benefits/burdens of medical treatment options; making medical treatment decisions. . (ALOK JONES) Subjective/Interval History Patient seen and examined in ICU. Nurse and Dr. Naranjo at bedside. Reviewed my prior conversations with daughterRadha. Patient with recent GI bleed, possible EGD if daughter consents per nurse. Called to speak with daughterRadha to give medical update she answers phone, does not answer and then we get disconnected. Patient remains in ICU on oxygen via t-piece. Hypotensive, BP 82/53. Afebrile. WBC increased to 18.3. Abdominal film no dilated loops of bowel. Eyes open, does not follow commands. Tube feeding on hold. No active bleeding today, PEG tube to LIWS. 12/06/15 Gastroccult negative. Nursing pain level scores are "1" PRN Morphine x 1 dose on 12/06/15. Patient does not appear painful during my visit. From Dr. Pickard's initial palliative care consultation of 07/15/15... This is the 5th acute care [facility] admission in the last 10 months for this unfortunate 54 y/o male [facility] resident with advanced Parkinson's disease ; dementia; tracheostomy and PEG tube who was sent to the ED from his facility on 06/18/15 because of fevers, labored breathing, worsening mental status; and purulent looking sputum at the trach site. The patient has had multiple hospitalizations which included stays in the intensive care unit for various infections. He had a urinary tract infection with multidrug resistant ESBL on 02/19/15. He was last MRSA positive on . detention notes from the facility indicate that his current baseline is: * Bedbound status * Unable to communicate * NPO -- on tube feedings at 85 cc /hr * Dependent for all ADLs In the emergency Department, initial vital signs were as follows > temperature 100.9; pulse 98; respiratory rate 38; blood pressure 104/61; pulse oximetry 99% on room air via trach collar. Initial physical examination the emergency department revealed the following > patient was frail and chronically ill-appearing. Skin showed no obvious wounds. Head, eyes, ENT, neck, cardiovascular, respiratory, gastrointestinal exams were unremarkable. Neurologically, the patient was unable to answer questions or respond or follow commands. Initial diagnostic testing revealed the following: * CBC showed WBC 16.4; hemoglobin 11.3; platelet count 176 * Coagulation profile showed PT 11.4; INR 1.1; PTT 29.4 * Chemistry profile showed sodium 141; potassium 4.5; chloride 105; CO2 27.4; anion gap 9; BUN 21; creatinine 0.85; estimated GFR 95; glucose 116; calcium 9.6 * Liver function tests showed total bilirubin 0.6; AST 23; ALT 38; alkaline phosphatase 59; total protein 7.5; albumen 3.2 * Urinalysis was remarkable for large occult blood; large leukocyte esterase; few bacteria; few yeast with hyphae; few budding yeast. * Arterial blood gases on trach mask at 40% showed pH 7.53; PCO2 33; PaO2 108; bicarbonate 27; base excess 4.2 * Chest x-ray showed no acute cardiopulmonary disease * Head CT showed diffuse atrophy unchanged from prior exam. * CT of the abdomen and pelvis showed chronic nonspecific urinary bladder wall thickening; bladder collapsed with Valdez catheter in place; chronic bilateral mid to lower lung zone groundglass opacity; nonobstructing left renal calculus; distended rectum. * The emergency room doctor diagnosed severe sepsis. The patient was given 2 L of IV fluid and broad-spectrum antibiotic-coated verge in the emergency department. Cultures were obtained. Valdez catheter was changed. As the patient was markedly tachypneic with increased work of breathing and use of accessory muscles during his stay in the emergency department. He was placed on CPAP and subsequently intubated and placed on mechanical ventilation. Critical care was consulted and the patient was admitted to the intensive care unit. Further examination revealed a stage II 6 x 2 cm sacral wound. Urine culture on admission grew out Heena of 2 different species. Sputum culture grew out Klebsiella pneumonia ESBL positive as well as pseudomonas. Blood culture grew out coag-negative staph and staph epidermidis. Both infectious disease and pulmonology were consulted. The patient slowly improved, was extubated, and critical care signed off on . However, on 07/06 the patient had to be placed back on the ventilator. A right sided pneumothorax was noted and patient underwent chest tube placement by interventional radiology. Pneumothorax has appeared to resolve on most recent chest x-ray. Sputum, blood, and urine cultures from 07/07/15 are all negative. White blood count is currently down to 7. Hemoglobin is 10.6. Albumen is suboptimal at 3.0. Renal function is normal. He is currently off anti-biotics. Current pain regimen includes the following: * Fentanyl patch; 50 g per hour * Morphine sulfate 5 mg sublingually or via the tube every 4 hours when necessary (he has been using 1-2 doses of this per day) The patient was tolerating CPAP earlier today and has since been removed from the ventilator and is on a T-piece at 40% FI02. At time of my visit, eyes are open. He intermittently tracks. He cannot follow commands and makes no attempt to interact. . (ALOK JONES) Advance Directives Living Will: Never completed Health Care Surrogate: Copy in medical record Durable Power of Mold Carrier: Never completed (ALOK JONES) Advance Directive Specifics Date completed: Patient visited Scott Mack, Mold Carrier in March and again in November 2014. The patient was encouraged to complete Advance directive documents but never did them. Dr. Pickard personally called Mr. Mack ([phone]) to check for advance directives. Health Care Surrogate(s): The patient completed a health care surrogate document dated 09/02/14 desigating his friend Bola Nolasco as surrogate. Mr. Nolasco was not aware of this and has declined serving in that capacity. The patient has an adult daughter -- Radha Foreman who is willing to serve as health care proxy decision maker. Patient's mother, Teresa is aware. Significant change in goals: NO CODE - No cardiac resuscitation, shock, ACLS or mech vent. Dr. Naranjo spoke with daughter Radha on 12/07/15, NO PRESSORS. . (ALOK JONES) Objective Vital Signs Date Time Temp Pulse Resp B/P Pulse Ox O2 Delivery O2 Flow Rate FiO2 12/07/15 10:00 67 12/07/15 08:24 99 T-piece 40 12/07/15 08:00 67 12/07/15 08:00 96 T-Piece 6.00 35 12/07/15 08:00 97.6 7 25 82/53 99 12/07/15 06:00 68 12/07/15 05:49 98 T-piece 5.00 40 12/07/15 04:20 98 40 12/07/15 04:00 97.5 83 35 89/66 98 12/07/15 04:00 Bi-Pap 12/07/15 04:00 83 12/07/15 02:00 69 12/07/15 01:07 99 40 12/07/15 00:00 97.7 75 24 80/61 98 12/07/15 00:00 75 12/07/15 00:00 Bi-Pap 12/06/15 22:19 99 40 12/06/15 22:00 88 12/06/15 20:21 100 40 12/06/15 20:00 81 12/06/15 20:00 T-Piece 6.00 12/06/15 20:00 97.4 81 39 99/62 100 12/06/15 19:23 99 T-piece 5.00 50 12/06/15 18:00 88 12/06/15 16:00 77 12/06/15 16:00 T-Piece 6.00 12/06/15 16:00 98.0 80 21 128/82 91 12/06/15 14:00 84 Intake & Output 12/07/15 12/07/15 07:00 19:00 Intake Total 193 ml Output Total 200 ml 1300 ml Balance -7 ml -1300 ml IV Total 193 ml Output Urine Total 200 ml 1300 ml # Bowel Movements 1 Physical Exam CONSTITUTIONAL/GENERAL: This is a thin, pale, contracted, chronically ill appearing [facility]. Unresponsive. TUBES/LINES/DRAINS: Trach, valdez cath, PEG tube to LIWS; scd's SKIN: No jaundice, rashes, or lesions. Sacral wound, not visualized today. NECK: Tracheostomy to t-piece. CARDIOVASCULAR: Regular rate and rhythm without murmurs, gallops, or rubs. No JVD. Peripheral pulses symmetric. RESPIRATORY/CHEST: Scattered course breath sounds. Breath sounds equal bilaterally and diminished at bases. GASTROINTESTINAL: Abdomen soft, non-tender, nondistended. GENITOURINARY: Without palpable bladder distension. catheter in place. MUSCULOSKELETAL: Contractures noted. No mottling. NEUROLOGICAL: Eyes open, not tracking or following commands. Unresponsive. No spontaneous movements seen. PSYCHIATRIC: Eyes open. . (ALOK JONES) Diagnostic Tests Laboratory Laboratory Tests Test 12/06/15 12/06/15 12/06/15 12/07/15 06:30 14:00 17:23 04:35 Hemoglobin 10.5 GM/DL 11.4 GM/DL 10.7 GM/DL (13.0-17.0) (13.0-17.0) (13.0-17.0) Hematocrit 31.6 % 34.1 % 32.0 % (39.0-51.0) (39.0-51.0) (39.0-51.0) Sodium Level 137 MEQ/L 139 MEQ/L (136-145) (136-145) Potassium Level 3.9 MEQ/L 4.3 MEQ/L (3.5-5.1) (3.5-5.1) Chloride Level 94 MEQ/L 96 MEQ/L (98-107) (98-107) Carbon Dioxide Level 37.5 MEQ/L 35.1 MEQ/L (21.0-32.0) (21.0-32.0) Anion Gap 6 MEQ/L (5-15) 8 MEQ/L (5-15) Blood Urea Nitrogen 15 MG/DL (7-18) 24 MG/DL (7-18) Creatinine 0.61 MG/DL 1.21 MG/DL (0.60-1.30) (0.60-1.30) Estimat Glomerular Filtration 138 ML/MIN 63 ML/MIN (>89) Rate (>89) Random Glucose 138 MG/DL 132 MG/DL (74-106) (74-106) Calcium Level 8.7 MG/DL 9.3 MG/DL (8.5-10.1) (8.5-10.1) Magnesium Level 2.2 MG/DL 2.2 MG/DL (1.5-2.5) (1.5-2.5) Blood Type A POSITIVE Antibody Screen NEGATIVE Crossmatch Leukocyte-Reduced Red Blood Cells Blood Bank Comment Total Bilirubin 0.7 MG/DL (0.2-1.0) Direct Bilirubin 0.2 MG/DL (0.0-0.2) Indirect Bilirubin 0.5 MG/DL (0.0-0.8) Aspartate Amino Transf 16 U/L (15-37) (AST/SGOT) Alanine Aminotransferase LESS THAN 6 (ALT/SGPT) U/L (12-78) Alkaline Phosphatase 45 U/L (45-117) Total Protein 6.1 GM/DL (6.4-8.2) Albumin 2.4 GM/DL (3.4-5.0) Lipase 244 U/L (73-393) White Blood Count 18.3 TH/MM3 (4.0-11.0) Red Blood Count 3.78 MIL/MM3 (4.50-5.90) Mean Corpuscular Volume 84.6 FL (80.0-100.0) Mean Corpuscular Hemoglobin 28.2 PG (27.0-34.0) Mean Corpuscular Hemoglobin 33.3 % Concent (32.0-36.0) Red Cell Distribution Width 16.2 % (11.6-17.2) Platelet Count 235 TH/MM3 (150-450) Mean Platelet Volume 9.2 FL (7.0-11.0) (ALOK JONES-Wen) Result Diagram: 12/07/15 0435 12/07/15 0435 Microbiology Microbiology Date/Time Procedure Status Source Growth 12/06/15 06:30 Gastric Occult Blood - Final Complete Gastric GASTROCCULT NEGATIVE Imaging Last Impressions Abdomen X-Ray 12/07/15 0600 Signed Impressions: Service Date/Time: Monday, December 07, 2015 03:40 - CONCLUSION: No dilated loops of small or large bowel. Tai Jaquez MD Chest X-Ray 12/07/15 0000 Signed Impressions: Service Date/Time: Monday, December 07, 2015 03:34 - CONCLUSION: Right lung is clear. Slight improvement of interstitial infiltrates left mid and lower lung. Tai Jaquez MD Abdomen Ultrasound 12/06/15 0000 Signed Impressions: Service Date/Time: Sunday, December 06, 2015 17:42 - CONCLUSION: 1. The gallbladder is unremarkable with no evidence of cholelithiasis. 2. Simple cyst in the left kidney. 3. Mild pyelocaliectasis in the right kidney. Salazar Thurman MD Upper Extremity Ultrasound 10/13/15 0000 Signed Impressions: Service Date/Time: Tuesday, October 13, 2015 09:51 - CONCLUSION: 1. No evidence of deep venous thrombosis. Jhon Anderson MD Renal Ultrasound 10/07/15 0000 Signed Impressions: Service Date/Time: Wednesday, October 07, 2015 18:29 - CONCLUSION: 1. No acute findings. 3.6 cm left renal cyst. Valdez catheter in bladder. Amaury Ellsworth MD Tunnelled Chest Tube Removal 08/05/15 1100 Signed Impressions: Service Date/Time: Wednesday, August 05, 2015 11:00 - CONCLUSION: Uncomplicated chest tube removal. Blaine Jackson MD Chest Tube Change 07/31/15 0000 Signed Impressions: Service Date/Time: Friday, July 31, 2015 14:34 - CONCLUSION: Uncomplicated reposition of previously placed chest tube as above. Blaine Jackson MD Chest Tube Insertion 07/30/15 0000 Signed Impressions: Service Date/Time: July 14:50 - CONCLUSION: Uncomplicated chest tube placement as above. Blaine Jackson MD Catheter Change 07/27/15 0000 Signed Impressions: Service Date/Time: Monday, July 27, 2015 14:43 - CONCLUSION: Uncomplicated gastrostomy tube exchange as above. Blaine Jackson MD Chest CT 07/11/15 0000 Signed Impressions: Service Date/Time: Saturday, July 11, 2015 09:49 - CONCLUSION: Scattered patchy densities significantly improved from previous study. Tiny anterior right basilar pneumothorax. Right-sided chest tube in good position. Néstor Matamoros MD Head CT 06/18/151902 Signed Impressions: Service Date/Time: June 19:31 - CONCLUSION: Diffuse atrophy unchanged. No acute intracranial findings. Kush Briscoe MD Abdomen/Pelvis CT 06/18/151902 Signed Impressions: Service Date/Time: June 19:36 - CONCLUSION: 1. Chronic nonspecific urinary bladder wall thickening. Bladder collapsed with Valdez catheter in place. 2. Chronic bilateral mid to lower lung zone groundglass opacity. 3. Nonobstructing left renal calculus. 4. Distended rectum. Kush Briscoe MD . Procedures * Mechanical ventilation * Chest tube placement on right 07/07/15 * Chest tube removal 07/17/15 . (ALOK JONES COMMERCIAL LOAN ANALYST-C) Assessment and Plan Disease Oriented Problem List: (1) Acute respiratory failure Comment: 10/13/15 - Halicat for hypotension and tube feeding coming from trach. - Back on mech vent in ICU. . (2) Chronic respiratory failure (3) Septic shock (4) Pneumonia Comment: Aspiration. Repeat cultures pending. . (5) UTI (urinary tract infection) Comment: Repeat culture pending. . (6) Parkinson disease (7) Moderate malnutrition Symptom Scale: (1) Pain 0-10 Scale: Unable to quantify (Pt unable to quantify, nurse reports level 1) Comment: Sources of pain might include wound, prolonged bedbound status, contractures, restraints, valdez, vascular access catheters. Appears comfortable on current regimen. ,l (2) Dyspnea 0-10 Scale: Unable to quantify Comment: On t-piece. . (3) Malnutrition 0-10 Scale: Unable to quantify Comment: Tube feeding on hold due to recent GI bleed. . (4) Encephalopathy 0-10 Scale: Unable to quantify Comment: Remains unresponsive. 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 Severe dementia. Daughter, mother, and brother are involved. Spiritual: Gnosticism. Has been a member for the [facility] [employer]odaism and members have provided both community support and spiritual support in the past. Legal: No advance directives. Daughter (Radha Foreman) is legal proxy and lives 4 hours away. She can be quite difficult to contact by phone. Ethical issues impacting care: None. . Important Contacts * Radha Foreman (daughter and proxy) [phone] * Teresa Perea (mother -- lives in [place]) [phone] . Prognosis Patient has end stage Parkinson's with end stage dementia. He is a [facility] resident and has required multiple hospitalizations for sepsis. He is a chronic trach/PEG tube patient with contractures and skin breakdown. Should family continue to want aggressive care, he will continue to go back and forth from facility to hospital until such time that we are no longer able to overcome the sepsis. Patient is hospice eligible whenever family is ready to transition to "comfort measures only." . Code Status: No Code (No cardiac resuscitation, shock, ACLS or mech vent. ) Plan * Decision making: Patient is incapacitated and will not regain capacity. There is no designated health care surrogate. Daughter, Radha Foreman, is legal proxy under [place] statutes but can be hard to contact at times. * NO CODE - No cardiac resuscitation, shock, ACLS or mech vent, No Pressors. * 12/07/15 - Called to speak with daughterRadha via telephone x 2 to provide update, call disconnected after she answered. * Call from Dr. Naranjo - she spoke with elsa Garcia on 12/07/15 she agreed to NO PRESSORS. * Pain: Sources of pain are unclear as patient in non communicative, but would include prolonged bedbound status; tubes and lines; contractures; wound; etc. Current regimen appears to adequate . No further recommendations at this time. * Dyspnea: Dyspnea due to aspiration pneumonia. Has previously been challenging to get off vent. * Malnutrition: Tolerating tube feeds, but albumin remains low. * Palliative care will continue to follow. . . (ALOK JONES) Attestation To help prompt me to consider important information that might be impacting today's encounter and assessment, information from prior notes written by myself or my colleagues may have been "brought forward" into today's note. My signature on this note, however, is an attestation that I personally performed the exam, history, and/or decision-making noted today, and, unless otherwise indicated, the interactions with patient, family, and staff as well as the review of records all occurred today. I also attest that the listed assessment and stated plan reflect my best clinical judgment today based on the combination of historical information, prior notes, and today's exam/ interactions. When time spent is documented, it refers only to time spent today by the signer, or if indicated, combined time spent today by collaborating physician/nurse practitioner. (ALOK JONES) Collaborating MD Comments Chart reviewed. Case discussed with palliative care COMMERCIAL LOAN ANALYST. Above note reviewed and I concur. . (Pascual Pickard MD) ALOK JONES Dec 07, 2015 12:14 Pascual Pickard MD Dec 31, 2015 17:01
--- NOTE | 2015-12-07 14:12 | HHI.PR ---
Subjective Remarks Patient seen and evaluated today at Hospital day #172. Patient's blood pressure is dropping. Patient remains encephalopathic. He continues respiratory failure and no progress. Patient's daughter call. I did have a lengthy discussion with her regarding overall poor prognosis and acute change in vital signs which may signify . The patient's daughter expressed understanding. She was also informed that obtaining Medicaid at this point would be unhelpful. At this time the patient remains unstable with no code/DNR confirmed. Objective Vitals Vital Signs Date Time Temp Pulse Resp B/P Pulse Ox O2 Delivery O2 Flow Rate FiO2 12/07/15 10:00 67 12/07/15 08:24 99 T-piece 40 12/07/15 08:00 67 12/07/15 08:00 96 T-Piece 6.00 35 12/07/15 08:00 97.6 7 25 82/53 99 12/07/15 06:00 68 12/07/15 05:49 98 T-piece 5.00 40 12/07/15 04:20 98 40 12/07/15 04:00 97.5 83 35 89/66 98 12/07/15 04:00 Bi-Pap 12/07/15 04:00 83 12/07/15 02:00 69 12/07/15 01:07 99 40 12/07/15 00:00 97.7 75 24 80/61 98 12/07/15 00:00 75 12/07/15 00:00 Bi-Pap 12/06/15 22:19 99 40 12/06/15 22:00 88 12/06/15 20:21 100 40 12/06/15 20:00 81 12/06/15 20:00 T-Piece 6.00 12/06/15 20:00 97.4 81 39 99/62 100 12/06/15 19:23 99 T-piece 5.00 50 12/06/15 18:00 88 12/06/15 16:00 77 12/06/15 16:00 T-Piece 6.00 12/06/15 16:00 98.0 80 21 128/82 91 I/O 12/06/15 12/06/15 12/06/15 12/07/15 12/07/15 12/07/15 06:59 14:59 22:59 06:59 14:59 22:59 Intake Total 100 ml 447 ml 149 ml 44 ml Output Total 400 ml 400 ml 100 ml 100 ml 1300 ml Balance -300 ml 47 ml 49 ml -56 ml -1300 ml IV Total 100 ml 447 ml 149 ml 44 ml Tube Feeding 0 ml Output Urine Total 100 ml 100 ml 100 ml 100 ml 1300 ml Gastric Drainage Total 300 ml 300 ml # Bowel Movements 1 Result Diagram: 12/07/1543412/07/15434 Objective Remarks GENERAL: This is a frail unresponsive male in no distress with tracheostomy and feeding tube CARDIOVASCULAR: Regular rate and rhythm without murmurs, gallops, or rubs. RESPIRATORY: Clear to auscultation. Breath sounds equal bilaterally. No wheezes , rales, or rhonchi. GASTROINTESTINAL: Abdomen soft, non-tender, nondistended. Normal active bowel sounds MUSCULOSKELETAL: Multiple contractures NEURO: Eyes open, non-interactive Procedures 07/26- PEG replacement 07/29- right pigtail catheter placement for new pneumothorax Date of Insertion: Oct 05, 2015 A/P Assessment and Plan Hospital day #172 for this unfortunate gentleman who has been admitted to the hospital to being found unresponsive in a long-term facility. Patient has acute on chronic respiratory failure requiring tracheostomy and pulmonary has been managing this. He has Parkinson's disease which at baseline he is nonverbal and does not follow commands and has quite a few contractures. I did spend 25 minutes on the telephone with the daughter Radha to discuss overall progress, end-of-life care and goals of therapy and treatment. I did express to her that continuing multiple procedures and interventions on her father would not change his overall outcome but would prolong his suffering and would not be able to change his overall prognosis. Ice discussed also with [facility] regarding patient's overall prognosis. Care plan DISCUSSED with CRM ARCHITECT given patient's recurrent hypotension At This time the patient continues with no cold status confirmed. Continue IV fluids if needed for hypotension. Patient will benefit from hospice long-term for end-of-life care with dignity Discharge Planning Radha Reaves and is listed as his daughter in the contact information. I did call the number to discuss long-term options Felisha Naranjo MD Dec 07, 2015 14:12
[2015-12-07] MEDS ORDERED: SODIUM CHLORID 0.9% 500 ML INJ 500 ML IV ONE (14:15)
[2015-12-07] MEDS: OLANZapine 5 MG TAB GT SCH (22:31)
[2015-12-08] VITALS (13 sets, daily range): BP systolic 94–109; BP diastolic 60–70; PULSE 81–89; RESP 16–19; TEMP 98.2–99.2; O2SAT 94–99
[2015-12-08] MEDS: RESP: COLISTIN 150 MG VIAL NEB SCH ×4 (00:06→23:46)
[2015-12-08] MEDS: PIPERACIL-TAZO 4.5 GM PREMIX 100 ML IV SCH ×4 (02:56→17:59)
[2015-12-08] MEDS: METOCLOPRAMIDE HCL 10 MG/2 ML VIAL IV PUSH SCH ×3 (02:57→18:00)
[2015-12-08] MEDS: FREE WATER G-TUBE SCH ×6 (04:00→21:25)
[2015-12-08] MEDS: CARBIDOPA/LEVODOPA 25 MG/100 MG TAB GT SCH ×3 (04:17→21:24)
[2015-12-08] MEDS: clonazePAM 1 MG TAB PO SCH ×3 (04:17→21:23)
[2015-12-08] MEDS: INSULIN NovoLIN REGULAR SUPPLEMENTAL SCALE SQ SCH ×4 (05:45→18:00)
[2015-12-08] MEDS: ARTIFICIAL TEARS OPTH SOLN 15 ML BTL EACH EYE SCH ×3 (09:52→17:59)
[2015-12-08] MEDS: COLLAGENASE OINT 30 GM TUBE TOP SCH (09:52)
[2015-12-08] MEDS: LACTOBACILLUS ACIDOPHILUS TAB PO SCH ×3 (09:53→18:00)
[2015-12-08] MEDS: MIDODRINE 5 MG TAB G-TUBE SCH ×2 (09:53→21:24)
[2015-12-08] MEDS: GABAPENTIN 300 MG CAP G-TUBE SCH ×2 (09:53→21:24)
[2015-12-08] MEDS: LANSOPRAZOLE SOLUTAB 30 MG TAB NG SCH (09:53)
[2015-12-08] MEDS: PARoxetine HCL 20 MG TAB G-TUBE SCH (09:53)
[2015-12-08] MEDS: PANTOPRAZOLE SOD 40 MG DELAYED RELEASE TAB PO SCH (09:53)
[2015-12-08] MEDS: POTASSIUM CHLORIDE 10 MEQ CAP G-TUBE SCH ×2 (09:53→21:24)
[2015-12-08] MEDS: SODIUM CHLORIDE 0.9% FLUSH 5 ML FLUSH IVF SCH ×2 (09:53→21:00)
[2015-12-08] MEDS: QUEtiapine FUMARATE 25 MG TAB G-TUBE SCH ×2 (09:54→21:24)
[2015-12-08] MEDS: HYDROCORTISONE SOD SUCCINATE 100 MG VIAL IV PUSH SCH ×2 (09:54→21:24)
[2015-12-08] MEDS: CHLORHEXIDINE 0.12% (ORAL KIT) 15 ML CUP MT SCH ×2 (09:55→21:25)
--- NOTE | 2015-12-08 10:17 | HHI.GIFU ---
Subjective Remarks Resting in bed. Eyes open, nonverbal. Spoke to nurse, has not been able to reach daughter yet. I also called and left message and have not heard back. ( Bernie Hill) Objective Vitals I&O Vital Signs Date Time Temp Pulse Resp B/P Pulse Ox O2 Delivery O2 Flow Rate FiO2 12/08/15 08:58 94 T-piece 35 12/08/15 08:00 100 T-Piece 6.00 35 12/08/15 08:00 98.8 89 17 109/70 94 12/08/15 08:00 86 12/08/15 03:36 94 35 12/08/15 00:34 97 12/07/15 22:48 97 40 12/07/15 20:08 97 40 12/07/15 18:00 77 12/07/15 16:00 97.4 72 18 82/51 97 12/07/15 16:00 97 T-Piece 6.00 35 12/07/15 16:00 65 12/07/15 14:00 70 12/07/15 12:00 97.5 65 22 96/63 97 12/07/15 12:00 65 12/07/15 12:00 97 T-Piece 6.00 35 I/O 12/07/15 12/07/15 12/07/15 12/08/15 12/08/15 12/08/15 07:00 15:00 23:00 07:00 15:00 23:00 Intake Total 44 ml 1339 ml Output Total 100 ml 2300 ml Balance -56 ml -961 ml IV Total 44 ml 939 ml Tube Irrigant 400 ml Output Urine Total 100 ml 2300 ml # Bowel Movements 1 Laboratory Date/Time Procedure Status Source Growth 12/06/15 06:30 Gastric Occult Blood - Final Complete Gastric GASTROCCULT NEGATIVE Imaging Last Impressions Abdomen X-Ray 12/07/15 0600 Signed Impressions: Service Date/Time: Monday, December 07, 2015 03:40 - CONCLUSION: No dilated loops of small or large bowel. Tai Jaquez MD Chest X-Ray 12/07/15 0000 Signed Impressions: Service Date/Time: Monday, December 07, 2015 03:34 - CONCLUSION: Right lung is clear. Slight improvement of interstitial infiltrates left mid and lower lung. Tai Jaquez MD Abdomen Ultrasound 12/06/15 0000 Signed Impressions: Service Date/Time: Sunday, December 06, 2015 17:42 - CONCLUSION: 1. The gallbladder is unremarkable with no evidence of cholelithiasis. 2. Simple cyst in the left kidney. 3. Mild pyelocaliectasis in the right kidney. Salazar Thurman MD Upper Extremity Ultrasound 10/13/15 0000 Signed Impressions: Service Date/Time: Tuesday, October 13, 2015 09:51 - CONCLUSION: 1. No evidence of deep venous thrombosis. oJhn Anderson MD Renal Ultrasound 10/07/15 0000 Signed Impressions: Service Date/Time: Wednesday, October 07, 2015 18:29 - CONCLUSION: 1. No acute findings. 3.6 cm left renal cyst. Putnam catheter in bladder. Amaury Ellsworth MD Tunnelled Chest Tube Removal 08/05/15 1100 Signed Impressions: Service Date/Time: Wednesday, August 05, 2015 11:00 - CONCLUSION: Uncomplicated chest tube removal. Blaine Jackson MD Chest Tube Change 07/31/15 0000 Signed Impressions: Service Date/Time: Friday, July 31, 2015 14:34 - CONCLUSION: Uncomplicated reposition of previously placed chest tube as above. Blaine Jackson MD Chest Tube Insertion 07/30/15 0000 Signed Impressions: Service Date/Time: July 14:50 - CONCLUSION: Uncomplicated chest tube placement as above. Blaine Jackson MD Catheter Change 07/27/15 0000 Signed Impressions: Service Date/Time: Monday, July 27, 2015 14:43 - CONCLUSION: Uncomplicated gastrostomy tube exchange as above. Blaine Jackson MD Chest CT 07/11/15 Signed Impressions: Service Date/Time: Saturday, July 11, 2015 09:49 - CONCLUSION: Scattered patchy densities significantly improved from previous study. Tiny anterior right basilar pneumothorax. Right-sided chest tube in good position. Néstor Matamoros MD Head CT 06/18/151902 Signed Impressions: Service Date/Time: June 19:31 - CONCLUSION: Diffuse atrophy unchanged. No acute intracranial findings. Kush Briscoe MD Abdomen/Pelvis CT 06/18/151902 Signed Impressions: Service Date/Time: June 19:36 - CONCLUSION: 1. Chronic nonspecific urinary bladder wall thickening. Bladder collapsed with Putnam catheter in place. 2. Chronic bilateral mid to lower lung zone groundglass opacity. 3. Nonobstructing left renal calculus. 4. Distended rectum. Kush Briscoe MD Physical Exam General: Patient is bedbound, contracted. Neck: Trach in place with T Bar Chest: Decreased breath sounds Cardiac: Regular Abd: PEG tube in place to LIWS, minimal bowel sounds, soft nondistended Ext: Contractures of the upper and lower extremities Putnam cath in place (Bernie Hill) Assessment and Plan Plan ASSESSMENT: - Vomiting with coffee-ground emesis noted. Pt had several episodes of vomiting of his TF via the mouth, PEG and trach reported on 12/04. Monday night, he had 3-4 episodes of vomiting coffee-ground emesis via the mouth, PEG and trach. PEG placed to LIWS. He has not had further episodes. H/H has been stable and was 10.7/32.0 yesterday. Pt has 2 units PRBCs on hold. - Ileus. Abdomen X-Ray (12/07/15)---> No dilated loops of small or large bowel. Reglan. Improved. No distention. Minimal gastric drainage from NGT. - Acute on chronic respiratory failure on BiPAP and T-piece, Pulmonary following. Pt felt to have had issues with aspiration. - Parkinson's disease/dementia. Chronically debilitated. Palliative Care following. PLAN: - Start Jevity at 1.5 30cc/hr and slowly increase to GR 60cc/hr as tolerated - Plan for egd once consents obtained (Attempted to call daughter Radha Foreman to discuss procedure, risks, benefits. No answer, message left. Nurse has not been able to reach either) - Reglan 5mg IV Q8H - Monitor H/H - Hold Lovenox for now - Cont. Protonix - Notify GI once consents obtained - Pt was seen and examined by myself and Dr. Rico, this note was written on his behalf. (Bernie Hill) Physician Comments Patient seen and examined Agree with above Continue with current supportive care Monitor labs The family has refused endoscopy Would continue with precautionary measures close monitoring of blood and vital signs with appropriate responses transfusions PPI GI will sign off at this point (Devin Rico MD) Bernie Hill Dec 08, 2015 10:17 Devin Rico MD Dec 08, 2015 22:15
--- NOTE | 2015-12-08 11:04 | HHI.IDPN ---
Subjective Subjective Remarks ID COVERAGE Notes reviewed D/W RN Temps ok BP on low side, not on pressors NGT to gravity overnight, just got clamped On trach collar currently CXR better He well-known to the ID service. Has been treated for multiple infections including pneumonia and UTI. On November 25 patient vomited tube feedings. He subsequently developed more respiratory problem, became hypotensive, and transferred to the intensive care unit. He is not febrile. Antibiotics Zosyn IV Colistin nebs Lines Peripheral IV with no e/o infection Past Medical History reviewed Allergies: Coded Allergies: *MDRO Multi-Drug Resistant Organism (Verified Adverse Reaction, Unknown, 12/01/15) ESBL E. coli (urine) - 02/19/2015; ESBL K. 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 Vital Signs Date Time Temp Pulse Resp B/P Pulse Ox O2 Delivery O2 Flow Rate FiO2 12/08/15 10:00 88 12/08/15 08:58 94 T-piece 35 12/08/15 08:00 100 T-Piece 6.00 35 12/08/15 08:00 98.8 89 17 109/70 94 12/08/15 08:00 86 12/08/15 03:36 94 35 12/08/15 00:34 97 12/07/15 22:48 97 40 12/07/15 20:08 97 40 12/07/15 18:00 77 12/07/15 16:00 97.4 72 18 82/51 97 12/07/15 16:00 97 T-Piece 6.00 35 12/07/15 16:00 65 12/07/15 14:00 70 12/07/15 12:00 97.5 65 22 96/63 97 12/07/15 12:00 65 12/07/15 12:00 97 T-Piece 6.00 35 12/07/15 12/07/15 12/08/15 14:59 22:59 06:59 Intake Total 1339 ml Output Total 2300 ml Balance -961 ml IV Total 939 ml Tube Irrigant 400 ml Output Urine Total 2300 ml . Laboratory Tests Test 12/06/15 12/07/15 14:00 04:35 Hemoglobin 11.4 GM/DL 10.7 GM/DL Hematocrit 34.1 % 32.0 % White Blood Count 18.3 TH/MM3 Red Blood Count 3.78 MIL/MM3 Mean Corpuscular Volume 84.6 FL Mean Corpuscular Hemoglobin 28.2 PG Mean Corpuscular Hemoglobin 33.3 % Concent Red Cell Distribution Width 16.2 % Platelet Count 235 TH/MM3 Mean Platelet Volume 9.2 FL Laboratory Tests Test 12/06/15 12/07/15 17:23 04:35 Total Bilirubin 0.7 MG/DL Direct Bilirubin 0.2 MG/DL Indirect Bilirubin 0.5 MG/DL Aspartate Amino Transf 16 U/L (AST/SGOT) Alanine Aminotransferase LESS THAN 6 U/L (ALT/SGPT) Alkaline Phosphatase 45 U/L Total Protein 6.1 GM/DL Albumin 2.4 GM/DL Lipase 244 U/L Sodium Level 139 MEQ/L Potassium Level 4.3 MEQ/L Chloride Level 96 MEQ/L Carbon Dioxide Level 35.1 MEQ/L Anion Gap 8 MEQ/L Blood Urea Nitrogen 24 MG/DL Creatinine 1.21 MG/DL Estimat Glomerular Filtration 63 ML/MIN Rate Random Glucose 132 MG/DL Calcium Level 9.3 MG/DL Magnesium Level 2.2 MG/DL Microbiology Date/Time Procedure Status Source Growth 12/06/15 06:30 Gastric Occult Blood - Final Complete Gastric GASTROCCULT NEGATIVE Imaging Abdomen X-Ray 12/07/15 0600 Signed Impressions: Service Date/Time: Monday, December 07, 2015 03:40 - CONCLUSION: No dilated loops of small or large bowel. Tai Jaquez MD Chest X-Ray 12/07/15 0000 Signed Impressions: Service Date/Time: Monday, December 07, 2015 03:34 - CONCLUSION: Right lung is clear. Slight improvement of interstitial infiltrates left mid and lower lung. Tai Jaquez MD Abdomen X-Ray 12/06/15 0000 Signed Impressions: Service Date/Time: Sunday, December 06, 2015 08:05 - CONCLUSION: No acute disease. Erlin Barajas MD Abdomen Ultrasound 12/06/15 0000 Signed Impressions: Service Date/Time: Sunday, December 06, 2015 17:42 - CONCLUSION: 1. The gallbladder is unremarkable with no evidence of cholelithiasis. 2. Simple cyst in the left kidney. 3. Mild pyelocaliectasis in the right kidney. Salazar Thurman MD Chest X-Ray 12/04/15 0600 Signed Impressions: Service Date/Time: Friday, December 04, 2015 03:50 - CONCLUSION: Interstitial densities in the right lung. Néstor Matamoros MD Chest X-Ray 11/28/15 0000 Signed Impressions: Service Date/Time: Saturday, November 28, 2015 00:21 - CONCLUSION: No acute cardiopulmonary disease. Eugene Schmid MD Abdomen X-Ray 11/26/15 0000 Signed Impressions: Service Date/Time: November 12:34 - CONCLUSION: 1. Nonobstructive bowel gas pattern. 2. Stable position of gastrostomy tube. Multiple surgical screws secure the proximal left femur. 3. No obvious pneumoperitoneum on the single projection provided. Scott Goode MD Upper Extremity Ultrasound 10/13/15 0000 Signed Impressions: Service Date/Time: Tuesday, October 13, 2015 09:51 - CONCLUSION: 1. No evidence of deep venous thrombosis. John Anderson MD Renal Ultrasound 10/07/15 0000 Signed Impressions: Service Date/Time: Wednesday, October 07, 2015 18:29 - CONCLUSION: 1. No acute findings. 3.6 cm left renal cyst. Putnam catheter in bladder. Amaury Ellsworth MD Tunnelled Chest Tube Removal 08/05/15 1100 Signed Impressions: Service Date/Time: Wednesday, August 05, 2015 11:00 - CONCLUSION: Uncomplicated chest tube removal. Blaine Jackson MD Chest Tube Change 07/31/15 0000 Signed Impressions: Service Date/Time: Friday, July 31, 2015 14:34 - CONCLUSION: Uncomplicated reposition of previously placed chest tube as above. Blaine Jackson MD Chest Tube Insertion 07/30/15 0000 Signed Impressions: Service Date/Time: July 14:50 - CONCLUSION: Uncomplicated chest tube placement as above. Blaine Jackson MD Catheter Change 07/27/15 0000 Signed Impressions: Service Date/Time: Monday, July 27, 2015 14:43 - CONCLUSION: Uncomplicated gastrostomy tube exchange as above. Blaine Jackson MD Chest CT 07/11/15 0000 Signed Impressions: Service Date/Time: Saturday, July 11, 2015 09:49 - CONCLUSION: Scattered patchy densities significantly improved from previous study. Tiny anterior right basilar pneumothorax. Right-sided chest tube in good position. Néstor Matamoros MD Head CT 06/18/151902 Signed Impressions: Service Date/Time: , June 18, 2015 19:31 - CONCLUSION: Diffuse atrophy unchanged. No acute intracranial findings. Kush Briscoe MD Abdomen/Pelvis CT 06/18/151902 Signed Impressions: Service Date/Time: June 19:36 - CONCLUSION: 1. Chronic nonspecific urinary bladder wall thickening. Bladder collapsed with Putnam catheter in place. 2. Chronic bilateral mid to lower lung zone groundglass opacity. 3. Nonobstructing left renal calculus. 4. Distended rectum. Kush Briscoe MD Physical Exam GENERAL: Eyes open, not interacting, not SOB, on T-piece SKIN: Cool and moist. No generalized rash. HEENT: [place] conjunctivae, no icterus, moist mucosa. NECK: Trach site looks ok. Neck is supple RESPIRATORY: Coarse BS razia, with scattered rhonchi GASTROINTESTINAL: Abdomen soft, not distended. Got some agitation during palpation. No guarding. PEG site looks okay. MUSCULOSKELETAL: No cyanosis No pedal edema. Contracted all 4 extremities. NEUROLOGICAL: Eyes open, Extremities contracted Peripheral IV line sites with no evidence of infection. ; Putnam in place, urine looks clear Assessment & Plan Remarks IMPRESSION Sepsis/SIRS related to aspiration PNA?HCAP. Preceding events seem to be vomiting , ?aspiration, CXR now with some densisties on R - C/S with PSAE and Kleb ESBL+ History of PSAE ESBL cath associated UTI. S/P Rx Leukocytosis, reactive due to current problem Previous C diff (+), no treated, improved - has had freq BM reported - will repeat if persistent and liquid Chronic respiratory failure on trach PSAE and ESBL Kleb in sputum in recent past. Chronic encephalopathy with underlying diagnosis of advanced dementia as well as advanced Parkinson's disease. Status post trach Status post gastrostomy tube with no evidence of infection. Stage II sacral decubitus ulcer present on admission. Intermittent vomiting Leukocytosis Recommendations Continue Zosyn IV Continue Colistin nebs. Monitor progress Will determine end date for Zosyn if he remains stable Follow CBC GI work-up in progress - waiting to speak with daughter D/W Bhavna Piedra MD Dec 08, 2015 11:03
--- NOTE | 2015-12-08 11:52 | HHI.HCPN ---
Reason for visit a. To assist with evaluation and management of symptoms including: secretions, dyspnea. b. To assist medical decision maker(s) with: better understanding of current medical conditions; weighing benefits/burdens of medical treatment options; making medical treatment decisions. . (ALOK JONES) Subjective/Interval History Patient seen and examined in ICU. Discussed with nurse, Stacy. Patient remains in ICU on oxygen via t-piece. Hypotensive, BP 109/70. Afebrile. No new labs. Eyes open, does not follow commands. Tube feeding on hold. No active bleeding today, PEG tube to LIWS. Nursing pain level scores are "7" PRN Morphine x 1 dose on 12/06/15. Patient does not appear painful during my visit. From Dr. Pickard's initial palliative care consultation of 07/15/15... 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 The patient has had multiple hospitalizations which included stays in the intensive care unit for various infections. He had a urinary tract infection with multidrug resistant ESBL on 02/19/15. He was last MRSA positive on . jail notes from the facility indicate that his current baseline is: * Bedbound status * Unable to communicate * NPO -- on tube feedings at 85 cc /hr * Dependent for all ADLs In the emergency Department, initial vital signs were as follows > temperature 100.9; pulse 98; respiratory rate 38; blood pressure 104/61; pulse oximetry 99% on room air via trach collar. Initial physical examination the emergency department revealed the following > patient was frail and chronically ill-appearing. Skin showed no obvious wounds. Head, eyes, ENT, neck, cardiovascular, respiratory, gastrointestinal exams were unremarkable. Neurologically, the patient was unable to answer questions or respond or follow commands. Initial diagnostic testing revealed the following: * CBC showed WBC 16.4; hemoglobin 11.3; platelet count 176 * Coagulation profile showed PT 11.4; INR 1.1; PTT 29.4 * Chemistry profile showed sodium 141; potassium 4.5; chloride 105; CO2 27.4; anion gap 9; BUN 21; creatinine 0.85; estimated GFR 95; glucose 116; calcium 9.6 * Liver function tests showed total bilirubin 0.6; AST 23; ALT 38; alkaline phosphatase 59; total protein 7.5; albumen 3.2 * Urinalysis was remarkable for large occult blood; large leukocyte esterase; few bacteria; few yeast with hyphae; few budding yeast. * Arterial blood gases on trach mask at 40% showed pH 7.53; PCO2 33; PaO2 108; bicarbonate 27; base excess 4.2 * Chest x-ray showed no acute cardiopulmonary disease * Head CT showed diffuse atrophy unchanged from prior exam. * CT of the abdomen and pelvis showed chronic nonspecific urinary bladder wall thickening; bladder collapsed with Valdez catheter in place; chronic bilateral mid to lower lung zone groundglass opacity; nonobstructing left renal calculus; distended rectum. * The emergency room doctor diagnosed severe sepsis. The patient was given 2 L of IV fluid and broad-spectrum antibiotic-coated verge in the emergency department. Cultures were obtained. Valdez catheter was changed. As the patient was markedly tachypneic with increased work of breathing and use of accessory muscles during his stay in the emergency department. He was placed on CPAP and subsequently intubated and placed on mechanical ventilation. Critical care was consulted and the patient was admitted to the intensive care unit. Further examination revealed a stage II 6 x 2 cm sacral wound. Urine culture on admission grew out Heena of 2 different species. Sputum culture grew out Klebsiella pneumonia ESBL positive as well as pseudomonas. Blood culture grew out coag-negative staph and staph epidermidis. Both infectious disease and pulmonology were consulted. The patient slowly improved, was extubated, and critical care signed off on . However, on 07/06 the patient had to be placed back on the ventilator. A right sided pneumothorax was noted and patient underwent chest tube placement by interventional radiology. Pneumothorax has appeared to resolve on most recent chest x-ray. Sputum, blood, and urine cultures from 07/07/15 are all negative. White blood count is currently down to 7. Hemoglobin is 10.6. Albumen is suboptimal at 3.0. Renal function is normal. He is currently off anti-biotics. Current pain regimen includes the following: * Fentanyl patch; 50 g per hour * Morphine sulfate 5 mg sublingually or via the tube every 4 hours when necessary (he has been using 1-2 doses of this per day) The patient was tolerating CPAP earlier today and has since been removed from the ventilator and is on a T-piece at 40% FI02. At time of my visit, eyes are open. He intermittently tracks. He cannot follow commands and makes no attempt to interact. . Family/friend interactions Spoke with daughterRadha via telephone. She reviewed conversation with Dr. Naranjo yesterday. She indicates her dad is not doing well. She is not yet ready to consider hospice. She does not want to proceed with EGD at this time. She may reconsider at a later date. . (ALOK JONES) Advance Directives Living Will: Never completed Health Care Surrogate: Copy in medical record Durable Power of Peer Tutor: Never completed (ALOK JONES) Advance Directive Specifics Date completed: Patient visited Scott Mack, Peer Tutor in March and again in November 2014. The patient was encouraged to complete Advance directive documents but never did them. Dr. Pickard personally called Mr. Mack ([phone]) to check for advance directives. Health Care Surrogate(s): The patient completed a health care surrogate document dated 09/02/14 desigating his friend Bola Nolasco as surrogate. Mr. Nolasco was not aware of this and has declined serving in that capacity. The patient has an adult daughter -- Radha Foreman who is willing to serve as health care proxy decision maker. Patient's motherTeresa is aware. Significant change in goals: NO CODE - no compressions, ACLS, shock or mech vent. No Pressors. No EGD. Continue aggressive care otherwise. . (ALOK JONES) Objective Vital Signs Date Time Temp Pulse Resp B/P Pulse Ox O2 Delivery O2 Flow Rate FiO2 12/08/15 10:00 88 12/08/15 08:58 94 T-piece 35 12/08/15 08:00 100 T-Piece 6.00 35 12/08/15 08:00 98.8 89 17 109/70 94 12/08/15 08:00 86 12/08/15 03:36 94 35 12/08/15 00:34 97 12/07/15 22:48 97 40 12/07/15 20:08 97 40 12/07/15 18:00 77 12/07/15 16:00 97.4 72 18 82/51 97 12/07/15 16:00 97 T-Piece 6.00 35 12/07/15 16:00 65 12/07/15 14:00 70 12/07/15 12:00 97.5 65 22 96/63 97 12/07/15 12:00 65 12/07/15 12:00 97 T-Piece 6.00 35 Physical Exam CONSTITUTIONAL/GENERAL: This is a thin, pale, contracted, chronically ill appearing [facility]. Unresponsive. TUBES/LINES/DRAINS: Trach, valdez cath, PEG tube to LIWS; scd's SKIN: No jaundice, rashes, or lesions. Sacral wound, not visualized today. NECK: Tracheostomy to t-piece. CARDIOVASCULAR: Regular rate and rhythm without murmurs, gallops, or rubs. No JVD. Peripheral pulses symmetric. RESPIRATORY/CHEST: Scattered course breath sounds. Breath sounds equal bilaterally and diminished at bases. GASTROINTESTINAL: Abdomen soft, non-tender, nondistended. GENITOURINARY: Without palpable bladder distension. catheter in place. MUSCULOSKELETAL: Contractures noted. No mottling. NEUROLOGICAL: Eyes open, not tracking or following commands. Unresponsive. No spontaneous movements seen. PSYCHIATRIC: Eyes open. . (ALOK JONES) Diagnostic Tests Laboratory Laboratory Tests Test 12/06/15 12/06/15 12/06/15 12/07/15 06:30 14:00 17:23 04:35 Hemoglobin 10.5 GM/DL 11.4 GM/DL 10.7 GM/DL (13.0-17.0) (13.0-17.0) (13.0-17.0) Hematocrit 31.6 % 34.1 % 32.0 % (39.0-51.0) (39.0-51.0) (39.0-51.0) Sodium Level 137 MEQ/L 139 MEQ/L (136-145) (136-145) Potassium Level 3.9 MEQ/L 4.3 MEQ/L (3.5-5.1) (3.5-5.1) Chloride Level 94 MEQ/L 96 MEQ/L (98-107) (98-107) Carbon Dioxide Level 37.5 MEQ/L 35.1 MEQ/L (21.0-32.0) (21.0-32.0) Anion Gap 6 MEQ/L (5-15) 8 MEQ/L (5-15) Blood Urea Nitrogen 15 MG/DL (7-18) 24 MG/DL (7-18) Creatinine 0.61 MG/DL 1.21 MG/DL (0.60-1.30) (0.60-1.30) Estimat Glomerular Filtration 138 ML/MIN 63 ML/MIN (>89) Rate (>89) Random Glucose 138 MG/DL 132 MG/DL (74-106) (74-106) Calcium Level 8.7 MG/DL 9.3 MG/DL (8.5-10.1) (8.5-10.1) Magnesium Level 2.2 MG/DL 2.2 MG/DL (1.5-2.5) (1.5-2.5) Blood Type A POSITIVE Antibody Screen NEGATIVE Crossmatch Leukocyte-Reduced Red Blood Cells Blood Bank Comment Total Bilirubin 0.7 MG/DL (0.2-1.0) Direct Bilirubin 0.2 MG/DL (0.0-0.2) Indirect Bilirubin 0.5 MG/DL (0.0-0.8) Aspartate Amino Transf 16 U/L (15-37) (AST/SGOT) Alanine Aminotransferase LESS THAN 6 (ALT/SGPT) U/L (12-78) Alkaline Phosphatase 45 U/L (45-117) Total Protein 6.1 GM/DL (6.4-8.2) Albumin 2.4 GM/DL (3.4-5.0) Lipase 244 U/L (73-393) White Blood Count 18.3 TH/MM3 (4.0-11.0) Red Blood Count 3.78 MIL/MM3 (4.50-5.90) Mean Corpuscular Volume 84.6 FL (80.0-100.0) Mean Corpuscular Hemoglobin 28.2 PG (27.0-34.0) Mean Corpuscular Hemoglobin 33.3 % Concent (32.0-36.0) Red Cell Distribution Width 16.2 % (11.6-17.2) Platelet Count 235 TH/MM3 (150-450) Mean Platelet Volume 9.2 FL (7.0-11.0) (ALOK JONES) Result Diagram: 12/07/15 0435 12/07/15 0435 Microbiology Microbiology Date/Time Procedure Status Source Growth 12/06/15 06:30 Gastric Occult Blood - Final Complete Gastric GASTROCCULT NEGATIVE Imaging Last Impressions Abdomen X-Ray 12/07/15 0600 Signed Impressions: Service Date/Time: Monday, December 07, 2015 03:40 - CONCLUSION: No dilated loops of small or large bowel. Tai Jaquez MD Chest X-Ray 12/07/15 0000 Signed Impressions: Service Date/Time: Monday, December 07, 2015 03:34 - CONCLUSION: Right lung is clear. Slight improvement of interstitial infiltrates left mid and lower lung. Tai Jaquez MD Abdomen Ultrasound 12/06/15 0000 Signed Impressions: Service Date/Time: Sunday, December 06, 2015 17:42 - CONCLUSION: 1. The gallbladder is unremarkable with no evidence of cholelithiasis. 2. Simple cyst in the left kidney. 3. Mild pyelocaliectasis in the right kidney. Salazar Thurman MD Upper Extremity Ultrasound 10/13/15 0000 Signed Impressions: Service Date/Time: Tuesday, October 13, 2015 09:51 - CONCLUSION: 1. No evidence of deep venous thrombosis. John Anderson MD Renal Ultrasound 10/07/15 0000 Signed Impressions: Service Date/Time: Wednesday, October 07, 2015 18:29 - CONCLUSION: 1. No acute findings. 3.6 cm left renal cyst. Valdez catheter in bladder. Amaury Ellsworth MD Tunnelled Chest Tube Removal 08/05/15 1100 Signed Impressions: Service Date/Time: Wednesday, August 05, 2015 11:00 - CONCLUSION: Uncomplicated chest tube removal. Blaine Jackson MD Chest Tube Change 07/31/15 0000 Signed Impressions: Service Date/Time: Friday, July 31, 2015 14:34 - CONCLUSION: Uncomplicated reposition of previously placed chest tube as above. Blaine Jackson MD Chest Tube Insertion 07/30/15 0000 Signed Impressions: Service Date/Time: July 14:50 - CONCLUSION: Uncomplicated chest tube placement as above. Blaine Jackson MD Catheter Change 07/27/15 0000 Signed Impressions: Service Date/Time: Monday, July 27, 2015 14:43 - CONCLUSION: Uncomplicated gastrostomy tube exchange as above. Blaine Jackson MD Chest CT 07/11/15 Signed Impressions: Service Date/Time: Saturday, July 11, 2015 09:49 - CONCLUSION: Scattered patchy densities significantly improved from previous study. Tiny anterior right basilar pneumothorax. Right-sided chest tube in good position. Néstor Matamoros MD Head CT 06/18/151902 Signed Impressions: Service Date/Time: June 19:31 - CONCLUSION: Diffuse atrophy unchanged. No acute intracranial findings. Kush Briscoe MD Abdomen/Pelvis CT 06/18/151902 Signed Impressions: Service Date/Time: June 19:36 - CONCLUSION: 1. Chronic nonspecific urinary bladder wall thickening. Bladder collapsed with Valdez catheter in place. 2. Chronic bilateral mid to lower lung zone groundglass opacity. 3. Nonobstructing left renal calculus. 4. Distended rectum. Kush Briscoe MD . Procedures * Mechanical ventilation * Chest tube placement on right 07/07/15 * Chest tube removal 07/17/15 . (ALOK JONES-Wen) Assessment and Plan Disease Oriented Problem List: (1) Acute respiratory failure Comment: 10/13/15 - Halicat for hypotension and tube feeding coming from trach. - Back on mech vent in ICU. . (2) Chronic respiratory failure (3) Septic shock (4) Pneumonia Comment: Aspiration. Repeat cultures pending. . (5) UTI (urinary tract infection) Comment: . (6) Parkinson disease (7) Moderate malnutrition Symptom Scale: (1) Pain 0-10 Scale: Unable to quantify (Pt unable to quantify, nurse reports level 1) Comment: Sources of pain might include wound, prolonged bedbound status, contractures, restraints, valdez, vascular access catheters. Appears comfortable on current regimen. ,l (2) Dyspnea 0-10 Scale: Unable to quantify Comment: On t-piece. . (3) Malnutrition 0-10 Scale: Unable to quantify Comment: Tube feeding on hold due to recent GI bleed. . (4) Encephalopathy 0-10 Scale: Unable to quantify Comment: Remains unresponsive. 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 Severe dementia. Daughter, mother, and brother are involved. Spiritual: [employer]. Has been a member for the [employer] [facility] [employer] and members have provided both community support and spiritual support in the past. Legal: No advance directives. Daughter (Radha Foreman) is legal proxy and lives 4 hours away. She can be quite difficult to contact by phone. Ethical issues impacting care: None. . Important Contacts * Radha Foreman (daughter and proxy) [phone] * Teresa Perea (mother -- lives in [place]) [phone] . Prognosis Patient has end stage Parkinson's with end stage dementia. He is a [facility] resident and has required multiple hospitalizations for sepsis. He is a chronic trach/PEG tube patient with contractures and skin breakdown. Should family continue to want aggressive care, he will continue to go back and forth from facility to hospital until such time that we are no longer able to overcome the sepsis. Patient is hospice eligible whenever family is ready to transition to "comfort measures only." . Code Status: No Code (No cardiac resuscitation, shock, ACLS or mech vent. ) Plan * Decision making: Patient is incapacitated and will not regain capacity. There is no designated health care surrogate. Daughter, Radha Foreman, is legal proxy under [place] statutes but can be hard to contact at times. * NO CODE - No cardiac resuscitation, shock, ACLS or mech vent, No Pressors. NO EGD for now. * 12/08/15 - Called to speak with daughterRadha via telephone medical update provided. She reviewed conversation she had with Dr. Naranjo on 12/07/15. She understands patient is "not doing well." She does NOT want to proceed with EGD at this time. She is not ready to consider hospice at this time. Left message for RJ Morin to notify. * Pain: Sources of pain are unclear as patient in non communicative, but would include prolonged bedbound status; tubes and lines; contractures; wound; etc. Current regimen appears to adequate . No further recommendations at this time. * Dyspnea: Dyspnea due to aspiration pneumonia. Has previously been challenging to get off vent. * Malnutrition: Tolerating tube feeds, but albumin remains low. * Palliative care will continue to follow. . . (ALOK JONES) Attestation To help prompt me to consider important information that might be impacting today's encounter and assessment, information from prior notes written by myself or my colleagues may have been "brought forward" into today's note. My signature on this note, however, is an attestation that I personally performed the exam, history, and/or decision-making noted today, and, unless otherwise indicated, the interactions with patient, family, and staff as well as the review of records all occurred today. I also attest that the listed assessment and stated plan reflect my best clinical judgment today based on the combination of historical information, prior notes, and today's exam/ interactions. When time spent is documented, it refers only to time spent today by the signer, or if indicated, combined time spent today by collaborating physician/nurse practitioner. (ALOK JONES) Collaborating MD Comments Chart reviewed. Case discussed with palliative care CHAIN SAW OPERATOR. Above note reviewed and I concur. . (Pascual Pickard MD) ALOK JONES Dec 08, 2015 11:52 Pascual Pickard MD Jan 01, 2016 15:43
[2015-12-08] MEDS: DEXTROSE 50% IN WATER 50 ML VIAL(D50) IV PUSH PRN (12:19)
--- NOTE | 2015-12-08 17:21 | HHI.PR ---
Subjective Remarks Seen and evaluated today in follow-up for multiple medical problems which remain unchanged. Still hypotensive but somewhat improved with systolic blood person and 90s. No events overnight. Plan discussed with BRIDAL SALES CONSULTANT Objective Vitals Vital Signs Date Time Temp Pulse Resp B/P Pulse Ox O2 Delivery O2 Flow Rate FiO2 12/08/15 16:20 96 T-piece 35 12/08/15 16:00 83 12/08/15 16:00 97 T-Piece 6.00 35 12/08/15 16:00 98.2 83 19 94/63 97 12/08/15 14:00 85 12/08/15 12:00 99.2 85 17 97/60 96 12/08/15 12:00 81 12/08/15 12:00 95 T-Piece 6.00 35 12/08/15 10:00 88 12/08/15 08:58 94 T-piece 35 12/08/15 08:00 100 T-Piece 6.00 35 12/08/15 08:00 98.8 89 17 109/70 94 12/08/15 08:00 86 12/08/15 03:36 94 35 12/08/15 00:34 97 12/07/15 22:48 97 40 12/07/15 20:08 97 40 12/07/15 18:00 77 I/O 12/07/15 12/07/15 12/07/15 12/08/15 12/08/15 12/08/15 06:59 14:59 22:59 06:59 14:59 22:59 Intake Total 44 ml 1339 ml 648 ml Output Total 100 ml 2300 ml 550 ml Balance -56 ml -961 ml 98 ml IV Total 44 ml 939 ml 148 ml Tube Feeding 100 ml Tube Irrigant 400 ml 400 ml Output Urine Total 100 ml 2300 ml 550 ml # Bowel Movements 1 0 Result Diagram: 12/07/155 12/07/15434 Objective Remarks GENERAL: This is a frail unresponsive male in no distress with tracheostomy and feeding tube CARDIOVASCULAR: Regular rate and rhythm without murmurs, gallops, or rubs. RESPIRATORY: Clear to auscultation. Breath sounds equal bilaterally. No wheezes , rales, or rhonchi. GASTROINTESTINAL: Abdomen soft, non-tender, nondistended. Normal active bowel sounds MUSCULOSKELETAL: Multiple contractures NEURO: Eyes open, non-interactive Procedures 6/20- PEG replacement 07/29- right pigtail catheter placement for new pneumothorax Date of Insertion: Oct 05, 2015 A/P Assessment and Plan Hospital day #173 for this unfortunate gentleman who has been admitted to the hospital to being [facility] a [facility]. Patient has acute on chronic respiratory failure requiring tracheostomy and pulmonary has been managing this. He has Parkinson's disease which at baseline he is nonverbal and does not follow commands and has quite a few contractures. Patient still with Hypotension which is stable. Patient will need IVF prn, no pressors cont DNR d/c professor of languages Planning Radha Reaves and is listed as his daughter in the contact information. Felisha Naranjo MD Dec 08, 2015 17:21
[2015-12-08] MEDS: MORPHINE SULFATE 4 MG/ML INJ IV PUSH PRN (18:02)
--- NOTE | 2015-12-08 19:18 | HHI.PR ---
Subjective Remarks Awake and better today. On a T bar FIO2 35 %. No vomiting . On tube feeds 40 CC. No fever. Objective Vital Signs Date Time Temp Pulse Resp B/P Pulse Ox O2 Delivery O2 Flow Rate FiO2 12/08/15 18:48 16 12/08/15 18:00 81 12/08/15 16:20 96 T-piece 35 12/08/15 16:00 83 12/08/15 16:00 97 T-Piece 6.00 35 12/08/15 16:00 98.2 83 19 94/63 97 12/08/15 14:00 85 12/08/15 12:00 99.2 85 17 97/60 96 12/08/15 12:00 81 12/08/15 12:00 95 T-Piece 6.00 35 12/08/15 10:00 88 12/08/15 08:58 94 T-piece 35 12/08/15 08:00 100 T-Piece 6.00 35 12/08/15 08:00 98.8 89 17 109/70 94 12/08/15 08:00 86 12/08/15 03:36 94 35 12/08/15 00:34 97 12/07/15 22:48 97 40 12/07/15 20:08 97 40 I/O 12/07/15 12/07/15 12/07/15 12/08/15 12/08/15 12/08/15 07:00 15:00 23:00 07:00 15:00 23:00 Intake Total 44 ml 1339 ml 648 ml Output Total 100 ml 2300 ml 550 ml Balance -56 ml -961 ml 98 ml IV Total 44 ml 939 ml 148 ml Tube Feeding 100 ml Tube Irrigant 400 ml 400 ml Output Urine Total 100 ml 2300 ml 550 ml # Bowel Movements 1 0 Result Diagram: 12/07/15 0435 12/07/15 0435 Objective Remarks This is a thin white male who is responsive , Lethargic,with a trach tube in place. HEENT: Pupils are equal and reactive to light. Throat clear CHEST:Decreased breath sounds, Occ basal crackles,with Occ wheeze scattered. CARDIOVASCULAR: S1 and S2 is normal.No murmur. ABDOMEN: Soft, nondistended. BS +. He has a PEG tube in place. EXTREMITIES: No edema.muscle wasting. NEURO: Alert, and has weak extremities, but moves arms. Skin is cool. Assessment and Plan Assessment and Plan IMPRESSION 1. Chronic Respiratory failure. 2. Sepsis, Aspiration. 3. Shock.Resolved. 4. Tracheobronchitis 5. Parkinson's disease 6. Dementia. 7. Severe Deconditioning. Plan : 1. Continue on 35 % T Bar daytime 2. Nebs qid , duoneb. 3. Resume tube feeds at 40 CC and Keep Head end up 45 degrees 4. Cont prednisone 5 mg daily. 5. Levsin .25 mg tid prn for Secretions 6. Cont Trach toilet and lavage. 8. Bipap at HS12/5 ,FIO2 35 % 9. D/C IV. 10. Labs in am. Darren Kisre MD Dec 08, 2015 19:18
[2015-12-08] MEDS: OLANZapine 5 MG TAB GT SCH (21:24)
[2015-12-09] VITALS (17 sets, daily range): BP systolic 104–117; BP diastolic 68–79; PULSE 58–80; RESP 18–24; TEMP 96.6–98.4; O2SAT 96–100
[2015-12-09] MEDS: METOCLOPRAMIDE HCL 10 MG/2 ML VIAL IV PUSH SCH ×3 (01:11→17:27)
[2015-12-09] MEDS: INSULIN NovoLIN REGULAR SUPPLEMENTAL SCALE SQ SCH ×4 (01:12→17:27)
[2015-12-09] MEDS: FREE WATER G-TUBE SCH ×6 (01:12→21:02)
[2015-12-09] MEDS: PIPERACIL-TAZO 4.5 GM PREMIX 100 ML IV SCH ×4 (01:12→17:27)
[2015-12-09] MEDS: CARBIDOPA/LEVODOPA 25 MG/100 MG TAB GT SCH ×3 (05:00→21:01)
[2015-12-09] MEDS: clonazePAM 1 MG TAB PO SCH ×3 (05:00→21:01)
[2015-12-09 05:38] LABS: AUTOMATED NEUTROPHIL # 9.2 TH/MM3 (1.8-7.7); BASOPHIL % 0.1 % (0.0-2.0); HEMATOCRIT 28.6 % (39.0-51.0); HEMO FLAGS DIFF FINAL; LYMPH % 5.9 % (9.0-44.0); LYMPHOCYTE # 0.6 TH/MM3 (1.0-4.8); MEAN CELL VOLUME 84.8 FL (80.0-100.0); MONO % 2.5 % (0.0-8.0); NEUT % 91.5 % (16.0-70.0); PLATELET COUNT 199 TH/MM3 (150-450); RED BLOOD COUNT 3.38 MIL/MM3 (4.50-5.90); RED CELL DISTRIBUTION WIDTH 15.9 % (11.6-17.2); WHITE BLOOD COUNT 10.1 TH/MM3 (4.0-11.0)
[2015-12-09] MEDS: RESP: COLISTIN 150 MG VIAL NEB SCH ×3 (07:57→20:46)
[2015-12-09] MEDS: ARTIFICIAL TEARS OPTH SOLN 15 ML BTL EACH EYE SCH ×3 (09:06→17:27)
[2015-12-09] MEDS: COLLAGENASE OINT 30 GM TUBE TOP SCH (09:06)
[2015-12-09] MEDS: CHLORHEXIDINE 0.12% (ORAL KIT) 15 ML CUP MT SCH ×2 (09:06→21:02)
[2015-12-09] MEDS: LANSOPRAZOLE SOLUTAB 30 MG TAB NG SCH (09:07)
[2015-12-09] MEDS: SODIUM CHLORIDE 0.9% FLUSH 5 ML FLUSH IVF SCH ×2 (09:07→21:02)
[2015-12-09] MEDS: LACTOBACILLUS ACIDOPHILUS TAB PO SCH ×3 (09:07→17:27)
[2015-12-09] MEDS: QUEtiapine FUMARATE 25 MG TAB G-TUBE SCH ×2 (09:07→21:01)
[2015-12-09] MEDS: POTASSIUM CHLORIDE 10 MEQ CAP G-TUBE SCH ×2 (09:07→21:01)
[2015-12-09] MEDS: PANTOPRAZOLE SOD 40 MG DELAYED RELEASE TAB PO SCH (09:07)
[2015-12-09] MEDS: GABAPENTIN 300 MG CAP G-TUBE SCH ×2 (09:07→21:01)
[2015-12-09] MEDS: PARoxetine HCL 20 MG TAB G-TUBE SCH (09:08)
[2015-12-09] MEDS: MIDODRINE 5 MG TAB G-TUBE SCH ×2 (09:08→21:01)
[2015-12-09] MEDS: HYDROCORTISONE SOD SUCCINATE 100 MG VIAL IV PUSH SCH ×2 (09:08→21:02)
--- NOTE | 2015-12-09 09:34 | HHI.IDPN ---
Subjective Subjective Remarks ID COVERAGE Notes reviewed Temps ok BP better this morning, not on pressors Started on TF On trach collar currently CXR better He well-known to the ID service. Has been treated for multiple infections including pneumonia and UTI. On November 25 patient vomited tube feedings. He subsequently developed more respiratory problem, became hypotensive, and transferred to the intensive care unit. He is not febrile. Antibiotics Zosyn IV Colistin nebs Lines Peripheral IV with no e/o infection Past Medical History reviewed Allergies: Coded Allergies: *MDRO Multi-Drug Resistant Organism (Verified Adverse Reaction, Unknown, 12/01/15) ESBL E. coli (urine) - 02/19/2015; ESBL K. 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 Vital Signs Date Time Temp Pulse Resp B/P Pulse Ox O2 Delivery O2 Flow Rate FiO2 12/09/15 08:00 73 12/09/15 08:00 100 T-Piece 40 12/09/15 08:00 96.8 75 21 110/75 100 12/09/15 07:58 99 T-piece 6.00 40 12/09/15 06:00 79 12/09/15 04:42 99 40 12/09/15 04:00 58 12/09/15 04:00 98.4 58 22 104/69 99 12/09/15 04:00 99 Bi-Pap 40 T-Piece 12/09/15 02:00 70 12/09/15 01:12 99 40 12/09/15 00:00 98 Bi-Pap 40 T-Piece 12/09/15 00:00 98.2 80 18 105/68 98 12/09/15 00:00 80 12/08/15 22:00 82 12/08/15 20:19 99 40 12/08/15 20:00 95 T-Piece 6.00 35 12/08/15 20:00 83 12/08/15 20:00 98.9 83 16 102/65 95 12/08/15 18:48 16 12/08/15 18:00 81 12/08/15 16:20 96 T-piece 35 12/08/15 16:00 83 12/08/15 16:00 97 T-Piece 6.00 35 12/08/15 16:00 98.2 83 19 94/63 97 12/08/15 14:00 85 12/08/15 12:00 99.2 85 17 97/60 96 12/08/15 12:00 81 12/08/15 12:00 95 T-Piece 6.00 35 12/08/15 10:00 88 12/08/15 12/08/15 12/09/15 15:00 23:00 07:00 Intake Total 648 ml 444 ml 589 ml Output Total 550 ml 250 ml 300 ml Balance 98 ml 194 ml 289 ml IV Total 148 ml 197 ml 165 ml Tube Feeding 100 ml 147 ml 224 ml Tube Irrigant 400 ml Other 100 ml 200 ml Output Urine Total 550 ml 250 ml 300 ml # Bowel Movements 0 . Laboratory Tests Test 12/09/15 05:00 White Blood Count 10.1 TH/MM3 Red Blood Count 3.38 MIL/MM3 Hemoglobin 9.5 GM/DL Hematocrit 28.6 % Mean Corpuscular Volume 84.8 FL Mean Corpuscular Hemoglobin 28.0 PG Mean Corpuscular Hemoglobin 33.0 % Concent Red Cell Distribution Width 15.9 % Platelet Count 199 TH/MM3 Mean Platelet Volume 9.4 FL Neutrophils (%) (Auto) 91.5 % Lymphocytes (%) (Auto) 5.9 % Monocytes (%) (Auto) 2.5 % Eosinophils (%) (Auto) 0.0 % Basophils (%) (Auto) 0.1 % Neutrophils # (Auto) 9.2 TH/MM3 Lymphocytes # (Auto) 0.6 TH/MM3 Monocytes # (Auto) 0.3 TH/MM3 Eosinophils # (Auto) 0.0 TH/MM3 Basophils # (Auto) 0.0 TH/MM3 CBC Comment DIFF FINAL Differential Comment Imaging Abdomen X-Ray 12/07/15 0600 Signed Impressions: Service Date/Time: Monday, December 07, 2015 03:40 - CONCLUSION: No dilated loops of small or large bowel. Tai Jaquez MD Chest X-Ray 12/07/15 0000 Signed Impressions: Service Date/Time: Monday, December 07, 2015 03:34 - CONCLUSION: Right lung is clear. Slight improvement of interstitial infiltrates left mid and lower lung. Tai Jaquez MD Abdomen X-Ray 12/06/15 0000 Signed Impressions: Service Date/Time: Sunday, December 06, 2015 08:05 - CONCLUSION: No acute disease. Erlin Barajas MD Abdomen Ultrasound 12/06/15 0000 Signed Impressions: Service Date/Time: Sunday, December 06, 2015 17:42 - CONCLUSION: 1. The gallbladder is unremarkable with no evidence of cholelithiasis. 2. Simple cyst in the left kidney. 3. Mild pyelocaliectasis in the right kidney. Salazar Thurman MD Chest X-Ray 12/04/15 0600 Signed Impressions: Service Date/Time: Friday, December 04, 2015 03:50 - CONCLUSION: Interstitial densities in the right lung. Néstor Matamoros MD Chest X-Ray 11/28/15 0000 Signed Impressions: Service Date/Time: Saturday, November 28, 2015 00:21 - CONCLUSION: No acute cardiopulmonary disease. Eugene Schmid MD Abdomen X-Ray 11/26/15 0000 Signed Impressions: Service Date/Time: November 12:34 - CONCLUSION: 1. Nonobstructive bowel gas pattern. 2. Stable position of gastrostomy tube. Multiple surgical screws secure the proximal left femur. 3. No obvious pneumoperitoneum on the single projection provided. Scott Goode MD Upper Extremity Ultrasound 10/13/15 0000 Signed Impressions: Service Date/Time: Tuesday, October 13, 2015 09:51 - CONCLUSION: 1. No evidence of deep venous thrombosis. John Anderson MD Renal Ultrasound 10/07/15 0000 Signed Impressions: Service Date/Time: Wednesday, October 07, 2015 18:29 - CONCLUSION: 1. No acute findings. 3.6 cm left renal cyst. Putnam catheter in bladder. Amaury Ellsworth MD Tunnelled Chest Tube Removal 08/05/15 1100 Signed Impressions: Service Date/Time: Wednesday, August 05, 2015 11:00 - CONCLUSION: Uncomplicated chest tube removal. Blaine Jackson MD Chest Tube Change 07/31/15 0000 Signed Impressions: Service Date/Time: Friday, July 31, 2015 14:34 - CONCLUSION: Uncomplicated reposition of previously placed chest tube as above. Blaine Jackson MD Chest Tube Insertion 07/30/15 0000 Signed Impressions: Service Date/Time: July 14:50 - CONCLUSION: Uncomplicated chest tube placement as above. Blaine Jackson MD Catheter Change 07/27/15 0000 Signed Impressions: Service Date/Time: Monday, July 27, 2015 14:43 - CONCLUSION: Uncomplicated gastrostomy tube exchange as above. Blaine Jackson MD Chest CT 07/11/15 0000 Signed Impressions: Service Date/Time: Saturday, July 11, 2015 09:49 - CONCLUSION: Scattered patchy densities significantly improved from previous study. Tiny anterior right basilar pneumothorax. Right-sided chest tube in good position. Néstor Matamoros MD Head CT 06/18/151902 Signed Impressions: Service Date/Time: June 19:31 - CONCLUSION: Diffuse atrophy unchanged. No acute intracranial findings. Kush Briscoe MD Abdomen/Pelvis CT 06/18/151902 Signed Impressions: Service Date/Time: June 19:36 - CONCLUSION: 1. Chronic nonspecific urinary bladder wall thickening. Bladder collapsed with Putnam catheter in place. 2. Chronic bilateral mid to lower lung zone groundglass opacity. 3. Nonobstructing left renal calculus. 4. Distended rectum. Kush Briscoe MD Physical Exam GENERAL: Eyes open, not interacting, not SOB, on T-piece SKIN: Cool and moist. No generalized rash. HEENT: [place] conjunctivae, no icterus, moist mucosa. NECK: Trach site looks ok. Neck is supple RESPIRATORY: Coarse BS razia, with scattered rhonchi GASTROINTESTINAL: Abdomen soft, not distended. Got some agitation during palpation. No guarding. PEG site looks okay. MUSCULOSKELETAL: No cyanosis No pedal edema. Contracted all 4 extremities. NEUROLOGICAL: Eyes open, Extremities contracted Peripheral IV line sites with no evidence of infection. ; Putnam in place, urine looks clear Assessment & Plan Remarks IMPRESSION Sepsis/SIRS related to aspiration PNA?HCAP. Preceding events seem to be vomiting , ?aspiration, CXR now with some densisties on R - C/S with PSAE and Kleb ESBL+ History of PSAE ESBL cath associated UTI. S/P Rx Leukocytosis, reactive due to current problem Previous C diff (+), no treated, improved - has had freq BM reported - will repeat if persistent and liquid Chronic respiratory failure on trach PSAE and ESBL Kleb in sputum in recent past. Chronic encephalopathy with underlying diagnosis of advanced dementia as well as advanced Parkinson's disease. Status post trach Status post gastrostomy tube with no evidence of infection. Stage II sacral decubitus ulcer present on admission. Intermittent vomiting Leukocytosis, down to normal Recommendations Continue Zosyn IV - plan to give until today (14 days) Continue Colistin nebs. Monitor progress GI work-up in progress - waiting to speak with daughter Bhavna Weeks MD Dec 09, 2015 09:34
--- NOTE | 2015-12-09 11:57 | HHI.PR ---
Subjective Remarks Patient seen in room for follow up d/c planning. NO change in condition. Discussed with RN. Objective Vitals Vital Signs Date Time Temp Pulse Resp B/P Pulse Ox O2 Delivery O2 Flow Rate FiO2 12/09/15 10:00 75 12/09/15 08:00 73 12/09/15 08:00 100 T-Piece 40 12/09/15 08:00 96.8 75 21 110/75 100 12/09/15 07:58 99 T-piece 6.00 40 12/09/15 06:00 79 12/09/15 04:42 99 40 12/09/15 04:00 58 12/09/15 04:00 98.4 58 22 104/69 99 12/09/15 04:00 99 Bi-Pap 40 T-Piece 12/09/15 02:00 70 12/09/15 01:12 99 40 12/09/15 00:00 98 Bi-Pap 40 T-Piece 12/09/15 00:00 98.2 80 18 105/68 98 12/09/15 00:00 80 12/08/15 22:00 82 12/08/15 20:19 99 40 12/08/15 20:00 95 T-Piece 6.00 35 12/08/15 20:00 83 12/08/15 20:00 98.9 83 16 102/65 95 12/08/15 18:48 16 12/08/15 18:00 81 12/08/15 16:20 96 T-piece 35 12/08/15 16:00 83 12/08/15 16:00 97 T-Piece 6.00 35 12/08/15 16:00 98.2 83 19 94/63 97 12/08/15 14:00 85 12/08/15 12:00 99.2 85 17 97/60 96 12/08/15 12:00 81 12/08/15 12:00 95 T-Piece 6.00 35 I/O 12/08/15 12/08/15 12/08/15 12/09/15 12/09/15 12/09/15 07:00 15:00 23:00 07:00 15:00 23:00 Intake Total 648 ml 444 ml 589 ml Output Total 550 ml 250 ml 300 ml Balance 98 ml 194 ml 289 ml IV Total 148 ml 197 ml 165 ml Tube Feeding 100 ml 147 ml 224 ml Tube Irrigant 400 ml Other 100 ml 200 ml Output Urine Total 550 ml 250 ml 300 ml # Bowel Movements 0 Result Diagram: 12/09/15 0500 12/07/15 0435 Objective Remarks GENERAL: This is a frail unresponsive male in no distress with tracheostomy and feeding tube CARDIOVASCULAR: Regular rate and rhythm without murmurs, gallops, or rubs. RESPIRATORY: Clear to auscultation. Breath sounds equal bilaterally. No wheezes , rales, or rhonchi. GASTROINTESTINAL: Abdomen soft, non-tender, nondistended. Normal active bowel sounds MUSCULOSKELETAL: Multiple contractures, right arm swelling NEURO: Eyes open, non-interactive Procedures 07/26- PEG replacement 07/29- right pigtail catheter placement for new pneumothorax Date of Insertion: Oct 05, 2015 A/P Assessment and Plan Hospital day #174 for this unfortunate gentleman who has been admitted to the hospital to being found unresponsive in a residential facility. Patient has acute on chronic respiratory failure requiring tracheostomy and pulmonary has been managing this. He has Parkinson's disease which at baseline he is nonverbal and does not follow commands and has quite a few contractures. Patient still with Hypotension which is stable. Patient will need IVF prn, no pressors cont DNR d/w RN, palliative care, case management Called Daughter Radha and spoke with her re d/c plans to snf (should placement become available) Discharge Planning Radha Reaves and is listed as his daughter in the contact information. Felisha Naranjo MD Dec 09, 2015 11:57
--- NOTE | 2015-12-09 19:16 | HHI.PR ---
Subjective Remarks Awake and stable today. On a T bar FIO2 35 %. Await transfer to skilled nursing On tube feeds 40 CC. No fever. Objective Vital Signs Date Time Temp Pulse Resp B/P Pulse Ox O2 Delivery O2 Flow Rate FiO2 12/09/15 18:00 66 12/09/15 16:00 97.0 74 24 117/79 96 12/09/15 16:00 74 12/09/15 16:00 97 T-Piece 35 12/09/15 14:00 70 12/09/15 12:00 96.6 64 19 115/78 100 12/09/15 12:00 99 T-Piece 35 12/09/15 12:00 62 12/09/15 10:00 75 12/09/15 08:00 73 12/09/15 08:00 100 T-Piece 40 12/09/15 08:00 96.8 75 21 110/75 100 12/09/15 07:58 99 T-piece 6.00 40 12/09/15 06:00 79 12/09/15 04:42 99 40 12/09/15 04:00 58 12/09/15 04:00 98.4 58 22 104/69 99 12/09/15 04:00 99 Bi-Pap 40 T-Piece 12/09/15 02:00 70 12/09/15 01:12 99 40 12/09/15 00:00 98 Bi-Pap 40 T-Piece 12/09/15 00:00 98.2 80 18 105/68 98 12/09/15 00:00 80 12/08/15 22:00 82 12/08/15 20:19 99 40 12/08/15 20:00 95 T-Piece 6.00 35 12/08/15 20:00 83 12/08/15 20:00 98.9 83 16 102/65 95 I/O 12/08/15 12/08/15 12/08/15 12/09/15 12/09/15 12/09/15 07:00 15:00 23:00 07:00 15:00 23:00 Intake Total 648 ml 444 ml 589 ml 893 ml Output Total 550 ml 250 ml 300 ml 825 ml Balance 98 ml 194 ml 289 ml 68 ml IV Total 148 ml 197 ml 165 ml 243 ml Tube Feeding 100 ml 147 ml 224 ml 250 ml Tube Irrigant 400 ml Other 100 ml 200 ml 400 ml Output Urine Total 550 ml 250 ml 300 ml 825 ml # Bowel Movements 0 2 Result Diagram: 12/09/15 0500 12/07/15 0435 Objective Remarks This is a thin white male who is responsive , Lethargic,with a trach tube in place. HEENT: Pupils are equal and reactive to light. Throat clear CHEST:Decreased breath sounds, with Occ wheeze scattered. CARDIOVASCULAR: S1 and S2 is normal.No murmur. ABDOMEN: Soft, nondistended. BS +. He has a PEG tube in place. EXTREMITIES: No edema.muscle wasting. NEURO: Alert, and has weak extremities, but moves arms. Skin is dry. Assessment and Plan Assessment and Plan IMPRESSION 1. Chronic Respiratory failure. 2. Sepsis, Aspiration. 3. Shock.Resolved. 4. Tracheobronchitis 5. Parkinson's disease 6. Dementia. 7. Severe Deconditioning. Plan : 1. Continue on 35 % T Bar daytime 2. Nebs qid , duoneb. 3.Cont tube feeds at 40 CC 4. Cont prednisone 5 mg daily. 5. Levsin .25 mg tid prn for Secretions 6. Cont Trach toilet and lavage. 8. Bipap at HS12/5 ,FIO2 35 % 9. CXR in am 10. Labs in am. Darren Kiser MD Dec 09, 2015 19:16
[2015-12-09] MEDS: OLANZapine 5 MG TAB GT SCH (21:01)
[2015-12-10] VITALS (16 sets, daily range): BP systolic 110–128; BP diastolic 71–91; PULSE 58–85; RESP 14–28; TEMP 97.8–98.4; O2SAT 96–100
[2015-12-10] MEDS: FREE WATER G-TUBE SCH ×6 (01:17→20:00)
[2015-12-10] MEDS: INSULIN NovoLIN REGULAR SUPPLEMENTAL SCALE SQ SCH ×4 (01:17→17:04)
[2015-12-10] MEDS: METOCLOPRAMIDE HCL 10 MG/2 ML VIAL IV PUSH SCH ×3 (01:18→17:04)
[2015-12-10] MEDS: MORPHINE SULFATE 4 MG/ML INJ IV PUSH PRN (01:21)
--- NOTE | 2015-12-10 04:59 | RADRPT ---
EXAM DATE/TIME: 12/10/2015 03:49 [facility] COMPARISON: CHEST SINGLE AP, December 07, 2015, 3:34. INDICATIONS : Shortness of breath, possible pulmonary disease. MEDICAL HISTORY : Hypertension. Gastroesophageal reflux disease. Diabetes mellitus type II. SURGICAL HISTORY : Tracheostomy ENCOUNTER: Subsequent ACUITY: 1 month PAIN SCORE: Non-responsive. LOCATION: Bilateral chest FINDINGS: Tracheostomy in place. Right central line catheter tip projects over the distal superior vena cava. Increasing parenchymal opacity left mid and lower lung, now with consolidation and with some loss of delineation of the medial one third left hemidiaphragm. The right lung is clear. The heart is norm al size. CONCLUSION: Increasing infiltrates, now with consolidation, left lower lung. Tai Jaquez MD on December 10, 2015 at 4:57 Board Certified Radiologist. This report was verified electronically.
[2015-12-10] MEDS: CARBIDOPA/LEVODOPA 25 MG/100 MG TAB GT SCH ×3 (05:12→21:52)
[2015-12-10] MEDS: clonazePAM 1 MG TAB PO SCH ×3 (05:12→21:51)
[2015-12-10] MEDS: RESP: COLISTIN 150 MG VIAL NEB SCH ×2 (08:58→15:50)
[2015-12-10] MEDS: QUEtiapine FUMARATE 25 MG TAB G-TUBE SCH ×2 (09:15→21:51)
[2015-12-10] MEDS: HYDROCORTISONE SOD SUCCINATE 100 MG VIAL IV PUSH SCH ×2 (09:15→21:51)
[2015-12-10] MEDS: LACTOBACILLUS ACIDOPHILUS TAB PO SCH ×3 (09:15→17:04)
[2015-12-10] MEDS: GABAPENTIN 300 MG CAP G-TUBE SCH ×2 (09:15→21:52)
[2015-12-10] MEDS: PANTOPRAZOLE SOD 40 MG DELAYED RELEASE TAB PO SCH (09:15)
[2015-12-10] MEDS: POTASSIUM CHLORIDE 10 MEQ CAP G-TUBE SCH ×2 (09:15→21:52)
[2015-12-10] MEDS: LANSOPRAZOLE SOLUTAB 30 MG TAB NG SCH (09:16)
[2015-12-10] MEDS: CHLORHEXIDINE 0.12% (ORAL KIT) 15 ML CUP MT SCH ×2 (09:16→20:12)
[2015-12-10] MEDS: MIDODRINE 5 MG TAB G-TUBE SCH ×2 (09:16→21:51)
[2015-12-10] MEDS: PARoxetine HCL 20 MG TAB G-TUBE SCH (09:16)
[2015-12-10] MEDS: ARTIFICIAL TEARS OPTH SOLN 15 ML BTL EACH EYE SCH ×3 (09:17→17:03)
[2015-12-10] MEDS: COLLAGENASE OINT 30 GM TUBE TOP SCH (09:18)
[2015-12-10] MEDS: SODIUM CHLORIDE 0.9% FLUSH 5 ML FLUSH IVF SCH ×2 (09:18→20:12)
--- NOTE | 2015-12-10 11:59 | HHI.PR ---
Subjective Remarks Awake and lethargic today. On a T bar FIO2 35 %. Await transfer to correction On tube feeds 40 CC. Good output. CXR showing more left infiltrate Objective Vital Signs Date Time Temp Pulse Resp B/P Pulse Ox O2 Delivery O2 Flow Rate FiO2 12/10/15 10:00 72 12/10/15 09:04 97 12/10/15 09:04 100 T-piece 7.00 12/10/15 08:00 Bi-Pap 40 12/10/15 08:00 78 12/10/15 06:00 76 12/10/15 04:09 99 40 12/10/15 04:00 Bi-Pap 40 12/10/15 04:00 98.0 69 17 111/77 98 12/10/15 04:00 69 12/10/15 02:00 58 12/10/15 01:31 20 12/10/15 01:02 99 40 12/10/15 00:00 62 12/10/15 00:00 Bi-Pap 40 12/10/15 00:00 98.4 62 15 128/87 98 12/09/15 22:13 96 40 12/09/15 22:00 67 12/09/15 20:52 100 40 12/09/15 20:00 62 12/09/15 20:00 97.8 62 18 114/74 99 12/09/15 20:00 99 T-Piece 35 12/09/15 18:00 66 12/09/15 16:00 97.0 74 24 117/79 96 12/09/15 16:00 74 12/09/15 16:00 97 T-Piece 35 12/09/15 14:00 70 12/09/15 12:00 96.6 64 19 115/78 100 12/09/15 12:00 99 T-Piece 35 12/09/15 12:00 62 I/O 12/09/15 12/09/15 12/09/15 12/10/15 12/10/15 12/10/15 07:00 15:00 23:00 07:00 15:00 23:00 Intake Total 589 ml 893 ml 525 ml 484 ml Output Total 300 ml 825 ml 350 ml 500 ml Balance 289 ml 68 ml 175 ml -16 ml IV Total 165 ml 243 ml 137 ml Tube Feeding 224 ml 250 ml 188 ml 284 ml Other 200 ml 400 ml 200 ml 200 ml Output Urine Total 300 ml 825 ml 350 ml 500 ml # Bowel Movements 2 Result Diagram: 12/09/15 0500 12/07/15 4665 Objective Remarks This is a thin white male who is responsive , Lethargic,with a trach tube in place. HEENT: Pupils are equal and reactive to light. Throat secretions CHEST:Decreased breath sounds, with Occ wheeze scattered.Left crackles CARDIOVASCULAR: S1 and S2 is normal.No murmur. ABDOMEN: Soft, nondistended. BS +. He has a PEG tube in place. EXTREMITIES: No edema.muscle wasting. NEURO: Alert, and has weak extremities, but moves arms. Skin is dry. Assessment and Plan Assessment and Plan IMPRESSION 1. Chronic Respiratory failure. 2. Sepsis, Aspiration. 3. Shock.Resolved. 4. Tracheobronchitis 5. Parkinson's disease 6. Dementia. 7. Severe Deconditioning. Plan : 1. Continue on 40 % T Bar daytime 2. Nebs Bid , duoneb. 3.Cont tube feeds at 40 CC 4. Cont prednisone 5 mg daily. 5. Levsin .25 mg tid prn for Secretions 6. Cont Trach toilet and lavage. 8. Bipap at HS12/5 ,FIO2 35 % 9. PT for activity/Postural drainage for left base qid. 10. Antibiotic per ID. Darren Kiser MD Dec 10, 2015 11:59
--- NOTE | 2015-12-10 13:02 | HHI.PR ---
Subjective Remarks Laying in bed, closed eyes but he still arousable to verbal stimuli No acute issue, and D/W with nurse Objective Vitals Vital Signs Date Time Temp Pulse Resp B/P Pulse Ox O2 Delivery O2 Flow Rate FiO2 12/10/15 10:00 72 12/10/15 09:04 97 12/10/15 09:04 100 T-piece 7.00 12/10/15 08:00 Bi-Pap 40 12/10/15 08:00 78 12/10/15 06:00 76 12/10/15 04:09 99 40 12/10/15 04:00 Bi-Pap 40 12/10/15 04:00 98.0 69 17 111/77 98 12/10/15 04:00 69 12/10/15 02:00 58 12/10/15 01:31 20 12/10/15 01:02 99 40 12/10/15 00:00 62 12/10/15 00:00 Bi-Pap 40 12/10/15 00:00 98.4 62 15 128/87 98 12/09/15 22:13 96 40 12/09/15 22:00 67 12/09/15 20:52 100 40 12/09/15 20:00 62 12/09/15 20:00 97.8 62 18 114/74 99 12/09/15 20:00 99 T-Piece 35 12/09/15 18:00 66 12/09/15 16:00 97.0 74 24 117/79 96 12/09/15 16:00 74 12/09/15 16:00 97 T-Piece 35 12/09/15 14:00 70 I/O 12/09/15 12/09/15 12/09/15 12/10/15 12/10/15 12/10/15 07:00 15:00 23:00 07:00 15:00 23:00 Intake Total 589 ml 893 ml 525 ml 484 ml Output Total 300 ml 825 ml 350 ml 500 ml Balance 289 ml 68 ml 175 ml -16 ml IV Total 165 ml 243 ml 137 ml Tube Feeding 224 ml 250 ml 188 ml 284 ml Other 200 ml 400 ml 200 ml 200 ml Output Urine Total 300 ml 825 ml 350 ml 500 ml # Bowel Movements 2 Result Diagram: 12/09/15 0500 12/07/15 8865 Objective Remarks GENERAL: Cachectic, contracted patient, chronic ill-looking, in no apparent distress. CARDIOVASCULAR: Regular rate and rhythm without murmurs, gallops, or rubs. RESPIRATORY: Some crackles, but fair air entry, GASTROINTESTINAL: Abdomen soft, non-tender, nondistended. Normal active bowel sounds PEG tube in place MUSCULOSKELETAL: Lower extremity in crossover contraction , positive pedal pulses,. NEURO: [place], doesn't follow commands, spontaneous movement of upper or lower extremity, doesn't answer question Procedures 07/26- PEG replacement 07/29- right pigtail catheter placement for new pneumothorax Date of Insertion: Oct 05, 2015 A/P Problem List: (1) Sepsis due to urinary tract infection ICD Code: A41.9 Status: Resolved (2) Acute respiratory failure ICD Code: J96.00 Status: Resolved (3) Chronic respiratory failure ICD Code: J96.10 Status: Chronic (4) Parkinson disease ICD Code: G20 Status: Chronic (5) UTI (urinary tract infection) ICD Code: N39.0 Status: Acute (6) Encephalopathy ICD Code: G93.40 Status: Resolved Assessment and Plan Daily update & Mngmt 12/10/15 BP stable but on the lower side , pt on midodren and solucortef bid IV started by the intemsivist , since family did not want to start pressors , consider tapering if bp allow Continue current care, rehabilitation when stable and okay with family General A/P: 55 years old male with tracheostomy and PEG tube detention resident admitted for: Sepsis SHOCK - likely aspiration - Started IV Zosyn 11/25 Putnam changed 11/26 ID ff Acute on chronic respiratory failure- now back on BiPAP Chronic tracheostomy Pneumonia S/P recurrent Right pneumothorax status post pigtail catheter removal Suction secretions Duo nebs 4 times a day and when necessary . colistin nebs Pulmonary ff Metabolic Encephalopathy - chronic Parkinson's disease Cognitive disorder/Underlying dementia Depression CT head 06/18/15: - diffuse atrophy unchanged. No acute intracranial findings Continue Sinemet 25/100 3 times a day via PEG, Seroquel 50 mg twice a day, olanzapine 5 mg a night, Klonopin 2 mg every 8 hours, Paxil 20 daily and Neurontin 300 mg twice a day. These medications have been slowly titrated up since admission Continue Roxanol 5 mg every 4 hours when necessary pain and fentanyl patch 50 g every 3 days for pain management. History of orthostasis History of CAD, HLP, Hypertension BP stable but on the lower side , pt on midodren and solucortef bid IV started by the intemsivist , since family did not want to start pressors , consider tapering if bp allow Monitor HR and BP keep MAP>65mmHg Malnutrition/protein calorie - moderate Status post PEG Hemorrhoids Gastroesophageal reflux disease Concern for hematemesis 12/05. Started on Protonix gtt. GI evaluated pt. Gastroccult was negative and hemoglobin has been stable - holding tube feeds 12/04 as pt has been vomiting. Resume at lower rate in AM if stable. - Reglan per GI. - KUB. - Current Colace/senna for bowel regimen. - continue PPI. Nonobstructing left renal calculus Hypokalemia Hypernatremia - resolved Acute urinary retention - Monitor renal function, I/O's. electrolytes replacement per protocol. - Continue on Free H20 200ml 3 times a day monitor - ff electrolytes- replacement protocol Candiduria ESBL positive Klebsiella/Pseudomonas pneumonia MRSA colonization - Multidrug resistant UTI- ESBL 02/19/15 , MRSA + 03/20/15 - Heena glabrata in urine 03/19/15 - Recheck blood, sputum and urine cultures 07/06 no growth - 06/17 - blood cultures 2 - CONS/staph epi - 06/17 - sputum - ESBL positive Klebsiella/Pseudomonas Treated 15 days with tobramycin aerosols twice a day. - 06/17 - urine - C. glabrata/tropicalis - treated with Diflucan - currently on Zosyn Anemia - Monitor CBC Bilateral lower extremity Contractures Stage II DU - Wound care ff - Continue physical therapy - Santyl dressing- consult wound care nurse Prophylaxis - GI - Prevacid - DVT - SCDs/Lovenox Discharge Planning to LTC when cleared by pulmonary Jb Ervin MD Dec 10, 2015 13:02
--- NOTE | 2015-12-10 15:05 | HHI.IDPN ---
Subjective Subjective Remarks ID COVERAGE Notes reviewed Temps ok BP good Finished Abx yesterday On TF On trach collar currently CXR better He well-known to the ID service. Has been treated for multiple infections including pneumonia and UTI. On November 25 patient vomited tube feedings. He subsequently developed more respiratory problem, became hypotensive, and transferred to the intensive care unit. He is not febrile. Antibiotics Zosyn IV - completed 12/08 Colistin nebs Lines Peripheral IV with no e/o infection Past Medical History reviewed Allergies: Coded Allergies: *MDRO Multi-Drug Resistant Organism (Verified Adverse Reaction, Unknown, 12/01/15) ESBL E. coli (urine) - 02/19/2015; ESBL K. 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 Vital Signs Date Time Temp Pulse Resp B/P Pulse Ox O2 Delivery O2 Flow Rate FiO2 12/10/15 12:00 98.4 59 14 117/81 98 12/10/15 12:00 T-Piece 35 12/10/15 12:00 59 12/10/15 10:00 72 12/10/15 10:00 72 12/10/15 09:04 97 12/10/15 09:04 100 T-piece 7.00 12/10/15 08:00 Bi-Pap 40 12/10/15 08:00 98.2 68 20 115/79 96 12/10/15 08:00 68 12/10/15 08:00 78 12/10/15 06:00 76 12/10/15 04:09 99 40 12/10/15 04:00 Bi-Pap 40 12/10/15 04:00 98.0 69 17 111/77 98 12/10/15 04:00 69 12/10/15 02:00 58 12/10/15 01:31 20 12/10/15 01:02 99 40 12/10/15 00:00 62 12/10/15 00:00 Bi-Pap 40 12/10/15 00:00 98.4 62 15 128/87 98 12/09/15 22:13 96 40 12/09/15 22:00 67 12/09/15 20:52 100 40 12/09/15 20:00 62 12/09/15 20:00 97.8 62 18 114/74 99 12/09/15 20:00 99 T-Piece 35 12/09/15 18:00 66 12/09/15 16:00 97.0 74 24 117/79 96 12/09/15 16:00 74 12/09/15 16:00 97 T-Piece 35 12/09/15 12/09/15 12/10/15 15:00 23:00 07:00 Intake Total 893 ml 525 ml 484 ml Output Total 825 ml 350 ml 500 ml Balance 68 ml 175 ml -16 ml IV Total 243 ml 137 ml Tube Feeding 250 ml 188 ml 284 ml Other 400 ml 200 ml 200 ml Output Urine Total 825 ml 350 ml 500 ml # Bowel Movements 2 . Laboratory Tests Test 12/09/15 05:00 White Blood Count 10.1 TH/MM3 Red Blood Count 3.38 MIL/MM3 Hemoglobin 9.5 GM/DL Hematocrit 28.6 % Mean Corpuscular Volume 84.8 FL Mean Corpuscular Hemoglobin 28.0 PG Mean Corpuscular Hemoglobin 33.0 % Concent Red Cell Distribution Width 15.9 % Platelet Count 199 TH/MM3 Mean Platelet Volume 9.4 FL Neutrophils (%) (Auto) 91.5 % Lymphocytes (%) (Auto) 5.9 % Monocytes (%) (Auto) 2.5 % Eosinophils (%) (Auto) 0.0 % Basophils (%) (Auto) 0.1 % Neutrophils # (Auto) 9.2 TH/MM3 Lymphocytes # (Auto) 0.6 TH/MM3 Monocytes # (Auto) 0.3 TH/MM3 Eosinophils # (Auto) 0.0 TH/MM3 Basophils # (Auto) 0.0 TH/MM3 CBC Comment DIFF FINAL Differential Comment Imaging Abdomen X-Ray 12/07/15 0600 Signed Impressions: Service Date/Time: Monday, December 07, 2015 03:40 - CONCLUSION: No dilated loops of small or large bowel. Tai Jaquez MD Chest X-Ray 12/07/15 0000 Signed Impressions: Service Date/Time: Monday, December 07, 2015 03:34 - CONCLUSION: Right lung is clear. Slight improvement of interstitial infiltrates left mid and lower lung. Tai Jaquez MD Abdomen X-Ray 12/06/15 0000 Signed Impressions: Service Date/Time: Sunday, December 06, 2015 08:05 - CONCLUSION: No acute disease. Erlin Barajas MD Abdomen Ultrasound 12/06/15 0000 Signed Impressions: Service Date/Time: Sunday, December 06, 2015 17:42 - CONCLUSION: 1. The gallbladder is unremarkable with no evidence of cholelithiasis. 2. Simple cyst in the left kidney. 3. Mild pyelocaliectasis in the right kidney. Salazar Thurman MD Chest X-Ray 12/04/15 0600 Signed Impressions: Service Date/Time: Friday, December 04, 2015 03:50 - CONCLUSION: Interstitial densities in the right lung. Néstor Matamoros MD Chest X-Ray 11/28/15 0000 Signed Impressions: Service Date/Time: Saturday, November 28, 2015 00:21 - CONCLUSION: No acute cardiopulmonary disease. Eugene Schmid MD Abdomen X-Ray 11/26/15 0000 Signed Impressions: Service Date/Time: November 12:34 - CONCLUSION: 1. Nonobstructive bowel gas pattern. 2. Stable position of gastrostomy tube. Multiple surgical screws secure the proximal left femur. 3. No obvious pneumoperitoneum on the single projection provided. Scott Goode MD Upper Extremity Ultrasound 10/13/15 0000 Signed Impressions: Service Date/Time: Tuesday, October 13, 2015 09:51 - CONCLUSION: 1. No evidence of deep venous thrombosis. John Anderson MD Renal Ultrasound 10/07/15 0000 Signed Impressions: Service Date/Time: Wednesday, October 07, 2015 18:29 - CONCLUSION: 1. No acute findings. 3.6 cm left renal cyst. Putnam catheter in bladder. Amaury Ellsworth MD Tunnelled Chest Tube Removal 08/05/15 1100 Signed Impressions: Service Date/Time: Wednesday, August 05, 2015 11:00 - CONCLUSION: Uncomplicated chest tube removal. Blaine Jackson MD Chest Tube Change 07/31/15 0000 Signed Impressions: Service Date/Time: Friday, July 31, 2015 14:34 - CONCLUSION: Uncomplicated reposition of previously placed chest tube as above. Blaine Jackson MD Chest Tube Insertion 07/30/15 0000 Signed Impressions: Service Date/Time: July 14:50 - CONCLUSION: Uncomplicated chest tube placement as above. Blaine Jackson MD Catheter Change 07/27/15 0000 Signed Impressions: Service Date/Time: Monday, July 27, 2015 14:43 - CONCLUSION: Uncomplicated gastrostomy tube exchange as above. Blaine Jackson MD Chest CT 07/11/15 0000 Signed Impressions: Service Date/Time: Saturday, July 11, 2015 09:49 - CONCLUSION: Scattered patchy densities significantly improved from previous study. Tiny anterior right basilar pneumothorax. Right-sided chest tube in good position. Néstor Matamoros MD Head CT 06/18/151902 Signed Impressions: Service Date/Time: June 19:31 - CONCLUSION: Diffuse atrophy unchanged. No acute intracranial findings. Kush Briscoe MD Abdomen/Pelvis CT 06/18/151902 Signed Impressions: Service Date/Time: June 19:36 - CONCLUSION: 1. Chronic nonspecific urinary bladder wall thickening. Bladder collapsed with Putnam catheter in place. 2. Chronic bilateral mid to lower lung zone groundglass opacity. 3. Nonobstructing left renal calculus. 4. Distended rectum. Kush Briscoe MD Physical Exam GENERAL: Eyes open, not interacting, not SOB, on T-piece SKIN: Cool and moist. No generalized rash. HEENT: [place] conjunctivae, no icterus, moist mucosa. NECK: Trach site looks ok. Neck is supple RESPIRATORY: Coarse BS razia, with scattered rhonchi GASTROINTESTINAL: Abdomen soft, not distended. No guarding. PEG site looks okay. MUSCULOSKELETAL: No cyanosis No pedal edema. Contracted all 4 extremities. NEUROLOGICAL: Eyes open, Extremities contracted Peripheral IV line sites with no evidence of infection. ; Putnam in place, urine looks clear Assessment & Plan Remarks IMPRESSION Sepsis/SIRS related to aspiration PNA?HCAP. Preceding events seem to be vomiting , ?aspiration, CXR now with some densisties on R - C/S with PSAE and Kleb ESBL+ History of PSAE ESBL cath associated UTI. S/P Rx Leukocytosis, reactive due to current problem Previous C diff (+), no treated, improved - has had freq BM reported - will repeat if persistent and liquid Chronic respiratory failure on trach PSAE and ESBL Kleb in sputum in recent past. Chronic encephalopathy with underlying diagnosis of advanced dementia as well as advanced Parkinson's disease. Status post trach Status post gastrostomy tube with no evidence of infection. Stage II sacral decubitus ulcer present on admission. Intermittent vomiting Leukocytosis, down to normal Recommendations Continue Colistin nebs. Monitor progress Monitor off Abx Dr Monzon covering tomorrow if needed Dr Moss back this weekend Bhavna Weeks MD Dec 10, 2015 15:05
[2015-12-10] MEDS: OLANZapine 5 MG TAB GT SCH (21:51)
[2015-12-11] VITALS (15 sets, daily range): BP systolic 110–130; BP diastolic 69–89; PULSE 67–94; RESP 21–24; TEMP 85–98.4; O2SAT 96–100
[2015-12-11] MEDS: RESP: COLISTIN 150 MG VIAL NEB SCH ×3 (00:26→16:00)
[2015-12-11] MEDS: METOCLOPRAMIDE HCL 10 MG/2 ML VIAL IV PUSH SCH ×3 (01:53→17:46)
[2015-12-11] MEDS: FREE WATER G-TUBE SCH ×6 (04:00→19:40)
[2015-12-11] MEDS: clonazePAM 1 MG TAB PO SCH ×3 (06:04→22:21)
[2015-12-11] MEDS: CARBIDOPA/LEVODOPA 25 MG/100 MG TAB GT SCH ×3 (06:05→22:21)
[2015-12-11] MEDS: INSULIN NovoLIN REGULAR SUPPLEMENTAL SCALE SQ SCH ×4 (06:36→18:18)
[2015-12-11] MEDS: ARTIFICIAL TEARS OPTH SOLN 15 ML BTL EACH EYE SCH ×3 (08:46→18:17)
[2015-12-11] MEDS: COLLAGENASE OINT 30 GM TUBE TOP SCH (08:46)
[2015-12-11] MEDS: POTASSIUM CHLORIDE 10 MEQ CAP G-TUBE SCH ×2 (08:46→19:40)
[2015-12-11] MEDS: CHLORHEXIDINE 0.12% (ORAL KIT) 15 ML CUP MT SCH ×2 (08:46→19:40)
[2015-12-11] MEDS: HYDROCORTISONE SOD SUCCINATE 100 MG VIAL IV PUSH SCH ×2 (08:47→19:42)
[2015-12-11] MEDS: predniSONE 5 MG TAB PO SCH (08:47)
[2015-12-11] MEDS: PARoxetine HCL 20 MG TAB G-TUBE SCH (08:47)
[2015-12-11] MEDS: QUEtiapine FUMARATE 25 MG TAB G-TUBE SCH ×2 (08:47→19:41)
[2015-12-11] MEDS: PANTOPRAZOLE SOD 40 MG DELAYED RELEASE TAB PO SCH (08:47)
[2015-12-11] MEDS: LACTOBACILLUS ACIDOPHILUS TAB PO SCH ×3 (08:47→17:46)
[2015-12-11] MEDS: MIDODRINE 5 MG TAB G-TUBE SCH ×2 (08:47→19:41)
[2015-12-11] MEDS: LANSOPRAZOLE SOLUTAB 30 MG TAB NG SCH (08:48)
[2015-12-11] MEDS: GABAPENTIN 300 MG CAP G-TUBE SCH ×2 (08:48→19:41)
[2015-12-11] MEDS: SODIUM CHLORIDE 0.9% FLUSH 5 ML FLUSH IVF SCH ×2 (08:48→19:42)
--- NOTE | 2015-12-11 11:44 | HHI.PR ---
Subjective Remarks Awake and lethargic . On a T bar FIO2 35 %. Await transfer to retirement On tube feeds 40 CC. No fever. Good output. CXR showing more left infiltrate Objective Vital Signs Date Time Temp Pulse Resp B/P Pulse Ox O2 Delivery O2 Flow Rate FiO2 12/11/15 10:00 79 12/11/15 09:50 96 T-piece 6.00 50 12/11/15 08:25 100 T-piece 8.00 12/11/15 08:00 85.0 85 21 115/82 99 12/11/15 08:00 85 12/11/15 08:00 99 T-Piece 35 12/11/15 06:00 94 12/11/15 04:00 100 Bi-Pap 40 12/11/15 04:00 97.6 80 22 130/86 100 12/11/15 04:00 80 12/11/15 02:00 67 12/11/15 00:00 99 Bi-Pap 40 12/11/15 00:00 80 12/11/15 00:00 98.4 80 22 110/69 99 12/10/15 22:00 74 12/10/15 22:00 98 Bi-Pap 40 12/10/15 20:49 100 40 12/10/15 20:00 100 T-Piece 35 12/10/15 20:00 85 12/10/15 20:00 98.1 85 28 110/71 100 12/10/15 18:00 67 12/10/15 16:00 70 12/10/15 16:00 97.8 70 22 123/91 99 12/10/15 16:00 T-Piece 35 12/10/15 14:00 65 12/10/15 12:00 98.4 59 14 117/81 98 12/10/15 12:00 T-Piece 35 12/10/15 12:00 59 I/O 12/10/15 12/10/15 12/10/15 12/11/15 12/11/15 12/11/15 07:00 15:00 23:00 07:00 15:00 23:00 Intake Total 484 ml 1341 ml 631 ml Output Total 500 ml 600.0 ml 750 ml 0 ml Balance -16 ml 741.0 ml -119 ml 0 ml IV Total 0 ml 0 ml Tube Feeding 284 ml 711 ml 201 ml Other 200 ml 630 ml 430 ml Output Urine Total 500 ml 600 ml 750 ml Tube Feeding Residual Discard 0 ml 0 ml 0 ml # Bowel Movements 2 2 Result Diagram: 12/09/15 0500 12/07/15 0435 Objective Remarks This is a thin white male who is responsive , Lethargic,with a trach tube in place. HEENT: Pupils are equal and reactive to light. Few Throat secretions CHEST:Decreased breath sounds, with Occ wheeze scattered.Left base crackles CARDIOVASCULAR: S1 and S2 is normal.No murmur. ABDOMEN: Soft, nondistended. BS +. He has a PEG tube in place. EXTREMITIES: No edema.muscle wasting. NEURO: Alert, and has weak extremities, but moves arms. Skin is dry. Assessment and Plan Assessment and Plan IMPRESSION 1. Chronic Respiratory failure. 2. Sepsis, Aspiration. 3. Left basal Pneumonia 4. Tracheobronchitis 5. Parkinson's disease 6. Dementia. 7. Severe Deconditioning. Plan : 1. Continue on 50 % T Bar daytime 2. Nebs Bid , duoneb. 3.Cont tube feeds at 40 CC 4. Cont prednisone 5 mg daily. 5. Levsin .25 mg tid prn for Secretions 6. Cont Trach toilet and lavage. 8. Bipap at HS12/5 ,FIO2 40 % 9. PT for activity/Postural drainage for left base qid. 10. Antibiotic per ID. 11. Chest X ray Monday Darren Kiser MD Dec 11, 2015 11:44
--- NOTE | 2015-12-11 13:47 | HHI.PR ---
Subjective Remarks No change in clinical picture, laying in bed close is, contracted, D/W with the nurse, will DC his central line Afebrile Objective Vitals Vital Signs Date Time Temp Pulse Resp B/P Pulse Ox O2 Delivery O2 Flow Rate FiO2 12/11/15 12:00 97.8 78 21 128/89 98 12/11/15 12:00 78 12/11/15 12:00 99 T-Piece 35 12/11/15 10:00 79 12/11/15 09:50 96 T-piece 6.00 50 12/11/15 08:25 100 T-piece 8.00 12/11/15 08:00 97.6 85 21 115/82 99 12/11/15 08:00 85 12/11/15 08:00 99 T-Piece 35 12/11/15 06:00 94 12/11/15 04:00 100 Bi-Pap 40 12/11/15 04:00 97.6 80 22 130/86 100 12/11/15 04:00 80 12/11/15 02:00 67 12/11/15 00:00 99 Bi-Pap 40 12/11/15 00:00 80 12/11/15 00:00 98.4 80 22 110/69 99 12/10/15 22:00 74 12/10/15 22:00 98 Bi-Pap 40 12/10/15 20:49 100 40 12/10/15 20:00 100 T-Piece 35 12/10/15 20:00 85 12/10/15 20:00 98.1 85 28 110/71 100 12/10/15 18:00 67 12/10/15 16:00 70 12/10/15 16:00 97.8 70 22 123/91 99 12/10/15 16:00 T-Piece 35 12/10/15 14:00 65 I/O 12/10/15 12/10/15 12/10/15 12/11/15 12/11/15 12/11/15 07:00 15:00 23:00 07:00 15:00 23:00 Intake Total 484 ml 1341 ml 631 ml Output Total 500 ml 600.0 ml 750 ml 0 ml Balance -16 ml 741.0 ml -119 ml 0 ml IV Total 0 ml 0 ml Tube Feeding 284 ml 711 ml 201 ml Other 200 ml 630 ml 430 ml Output Urine Total 500 ml 600 ml 750 ml Tube Feeding Residual Discard 0 ml 0 ml 0 ml # Bowel Movements 2 2 Result Diagram: 12/09/15 0500 12/07/15 0435 Objective Remarks GENERAL: Cachectic, contracted patient, chronic ill-looking, in no apparent distress. CARDIOVASCULAR: Regular rate and rhythm without murmurs, gallops, or rubs. RESPIRATORY: Some crackles, but fair air entry, GASTROINTESTINAL: Abdomen soft, non-tender, nondistended. Normal active bowel sounds PEG tube in place MUSCULOSKELETAL: Lower extremity in crossover contraction , positive pedal pulses,. NEURO: Davis, doesn't follow commands, spontaneous movement of upper or lower extremity, doesn't answer question Procedures 07/26- PEG replacement 07/29- right pigtail catheter placement for new pneumothorax Date of Insertion: Oct 05, 2015 A/P Problem List: (1) Sepsis due to urinary tract infection ICD Code: A41.9 Status: Resolved (2) Acute respiratory failure ICD Code: J96.00 Status: Resolved (3) Chronic respiratory failure ICD Code: J96.10 Status: Chronic (4) Parkinson disease ICD Code: G20 Status: Chronic (5) UTI (urinary tract infection) ICD Code: N39.0 Status: Acute (6) Encephalopathy ICD Code: G93.40 Status: Resolved Assessment and Plan Daily update & Mngmt 12/10/15 BP stable but on the lower side , pt on midodren and solucortef bid IV started by the intemsivist , since family did not want to start pressors , consider tapering if bp allow Continue current care, rehabilitation when stable and okay with family Daily update & Mngmt 12/11/15 Continue current care, palliative care following General A/P: 55 years old male with tracheostomy and PEG tube halfway resident admitted for: Sepsis SHOCK - likely aspiration - Started IV Zosyn 11/25 Putnam changed 11/26 ID ff Acute on chronic respiratory failure- now back on BiPAP Chronic tracheostomy Pneumonia S/P recurrent Right pneumothorax status post pigtail catheter removal Suction secretions Duo nebs 4 times a day and when necessary . colistin nebs Pulmonary ff Metabolic Encephalopathy - chronic Parkinson's disease Cognitive disorder/Underlying dementia Depression CT head 06/18/15: - diffuse atrophy unchanged. No acute intracranial findings Continue Sinemet 25/100 3 times a day via PEG, Seroquel 50 mg twice a day, olanzapine 5 mg a night, Klonopin 2 mg every 8 hours, Paxil 20 daily and Neurontin 300 mg twice a day. These medications have been slowly titrated up since admission Continue Roxanol 5 mg every 4 hours when necessary pain and fentanyl patch 50 g every 3 days for pain management. History of orthostasis History of CAD, HLP, Hypertension BP stable but on the lower side , pt on midodren and solucortef bid IV started by the intemsivist , since family did not want to start pressors , consider tapering if bp allow Monitor HR and BP keep MAP>65mmHg Malnutrition/protein calorie - moderate Status post PEG Hemorrhoids Gastroesophageal reflux disease Concern for hematemesis 12/05. Started on Protonix gtt. GI evaluated pt. Gastroccult was negative and hemoglobin has been stable - holding tube feeds 12/04 as pt has been vomiting. Resume at lower rate in AM if stable. - Reglan per GI. - KUB. - Current Colace/senna for bowel regimen. - continue PPI. Nonobstructing left renal calculus Hypokalemia Hypernatremia - resolved Acute urinary retention - Monitor renal function, I/O's. electrolytes replacement per protocol. - Continue on Free H20 200ml 3 times a day monitor - ff electrolytes- replacement protocol Candiduria ESBL positive Klebsiella/Pseudomonas pneumonia MRSA colonization - Multidrug resistant UTI- ESBL 02/19/15 , MRSA + 03/20/15 - Heena glabrata in urine 03/19/15 - Recheck blood, sputum and urine cultures 07/06 no growth - 06/17 - blood cultures 2 - CONS/staph epi - 06/17 - sputum - ESBL positive Klebsiella/Pseudomonas Treated 15 days with tobramycin aerosols twice a day. - 06/17 - urine - C. glabrata/tropicalis - treated with Diflucan - currently on Zosyn Anemia - Monitor CBC Bilateral lower extremity Contractures Stage II DU - Wound care ff - Continue physical therapy - Santyl dressing- consult wound care nurse Prophylaxis - GI - Prevacid - DVT - SCDs/Lovenox Discharge Planning to LTC when cleared by pulmonary Jb Ervin MD Dec 11, 2015 13:47
[2015-12-11] MEDS: OLANZapine 5 MG TAB GT SCH (19:41)
[2015-12-12] VITALS (17 sets, daily range): BP systolic 107–127; BP diastolic 69–85; PULSE 52–97; RESP 18–22; TEMP 97.3–98.8; O2SAT 98–99
[2015-12-12] MEDS: INSULIN NovoLIN REGULAR SUPPLEMENTAL SCALE SQ SCH ×4 (00:10→18:00)
[2015-12-12] MEDS: FREE WATER G-TUBE SCH ×6 (04:00→20:00)
[2015-12-12] MEDS: METOCLOPRAMIDE HCL 10 MG/2 ML VIAL IV PUSH SCH ×3 (04:04→17:48)
[2015-12-12] MEDS: clonazePAM 1 MG TAB PO SCH ×3 (06:46→21:50)
[2015-12-12] MEDS: CARBIDOPA/LEVODOPA 25 MG/100 MG TAB GT SCH ×3 (06:46→21:50)
[2015-12-12] MEDS: MIDODRINE 5 MG TAB G-TUBE SCH ×2 (08:18→21:50)
[2015-12-12] MEDS: LACTOBACILLUS ACIDOPHILUS TAB PO SCH ×3 (08:19→17:48)
[2015-12-12] MEDS: QUEtiapine FUMARATE 25 MG TAB G-TUBE SCH ×2 (08:19→21:50)
[2015-12-12] MEDS: HYDROCORTISONE SOD SUCCINATE 100 MG VIAL IV PUSH SCH ×2 (08:19→21:49)
[2015-12-12] MEDS: RESP: COLISTIN 150 MG VIAL NEB SCH ×2 (08:20→17:21)
[2015-12-12] MEDS: GABAPENTIN 300 MG CAP G-TUBE SCH ×2 (08:20→21:49)
[2015-12-12] MEDS: LANSOPRAZOLE SOLUTAB 30 MG TAB NG SCH (08:20)
[2015-12-12] MEDS: PARoxetine HCL 20 MG TAB G-TUBE SCH (08:20)
[2015-12-12] MEDS: PANTOPRAZOLE SOD 40 MG DELAYED RELEASE TAB PO SCH (08:20)
[2015-12-12] MEDS: POTASSIUM CHLORIDE 10 MEQ CAP G-TUBE SCH ×2 (08:20→21:51)
[2015-12-12] MEDS: CHLORHEXIDINE 0.12% (ORAL KIT) 15 ML CUP MT SCH ×2 (08:21→21:52)
[2015-12-12] MEDS: COLLAGENASE OINT 30 GM TUBE TOP SCH (08:22)
[2015-12-12] MEDS: ARTIFICIAL TEARS OPTH SOLN 15 ML BTL EACH EYE SCH ×3 (08:22→18:00)
[2015-12-12] MEDS: SODIUM CHLORIDE 0.9% FLUSH 5 ML FLUSH IVF SCH ×2 (08:23→21:53)
[2015-12-12] MEDS: predniSONE 5 MG TAB PO SCH (08:23)
--- NOTE | 2015-12-12 14:16 | HHI.PR ---
Subjective Remarks Awake and lethargic . On a T bar FIO2 50 %. On tube feeds 30 CC. No fever. Nods to some questions . CXR showing more left infiltrate Objective Vital Signs Date Time Temp Pulse Resp B/P Pulse Ox O2 Delivery O2 Flow Rate FiO2 12/12/15 08:39 99 T-piece 7.00 50 12/12/15 08:00 99 Bi-Pap 40 12/12/15 08:00 98.8 80 22 114/80 99 12/12/15 08:00 80 12/12/15 06:00 68 12/12/15 05:26 20 12/12/15 04:15 99 40 12/12/15 04:00 98 Bi-Pap 40 12/12/15 04:00 98.4 77 20 127/85 98 12/12/15 04:00 77 12/12/15 02:00 71 12/12/15 01:09 99 40 12/12/15 00:00 74 12/12/15 00:00 98 Bi-Pap 40 12/12/15 00:00 98.1 74 22 107/69 98 12/11/15 22:00 71 12/11/15 20:20 98 Bi-Pap 40 12/11/15 20:16 100 40 12/11/15 20:00 90 12/11/15 20:00 98.3 90 24 120/78 97 12/11/15 20:00 97 T-Piece 35 12/11/15 18:00 83 12/11/15 16:00 97 T-Piece 35 12/11/15 16:00 97.9 81 23 123/85 97 12/11/15 16:00 76 I/O 12/11/15 12/11/15 12/11/15 12/12/15 12/12/15 12/12/15 07:00 15:00 23:00 07:00 15:00 23:00 Intake Total 631 ml 883 ml 435 ml 625 ml Output Total 750 ml 350 ml 475 ml 500 ml 0 ml Balance -119 ml 533 ml -40 ml 125 ml 0 ml IV Total 0 ml 0 ml 0 ml 0 ml Tube Feeding 201 ml 483 ml 205 ml 195 ml Other 430 ml 400 ml 230 ml 430 ml Output Urine Total 750 ml 350 ml 475 ml 500 ml Tube Feeding Residual Discard 0 ml 0 ml 0 ml 0 ml 0 ml # Bowel Movements 2 2 1 0 Result Diagram: 12/09/15 0500 Objective Remarks This is a thin white male who is responsive , Lethargic,with a trach tube in place. HEENT: Pupils are equal and reactive to light. Few Throat secretions CHEST:Decreased breath sounds, with Occ wheeze scattered. Left base crackles CARDIOVASCULAR: S1 and S2 is normal.No murmur. ABDOMEN: Soft, nondistended. BS +. He has a PEG tube in place. EXTREMITIES: No edema.muscle wasting. NEURO: Alert, and has weak extremities, but moves arms. Skin is dry. Assessment and Plan Assessment and Plan IMPRESSION 1. Chronic Respiratory failure. 2. Sepsis, Aspiration. 3. Left basal Pneumonia 4. Tracheobronchitis 5. Parkinson's disease 6. Dementia. 7. Severe Deconditioning. Plan : 1. Continue on 40 % T Bar daytime 2. Nebs Bid , duoneb. 3.Cont tube feeds at 40 CC 4. Cont prednisone 5 mg daily. 5. Levsin .25 mg tid prn for Secretions 6. Cont Trach toilet and lavage. 8. Bipap at HS12/5 ,FIO2 30 % 9. PT for activity/Postural drainage for left base qid. 10. Antibiotic per ID. 11. Chest X ray Monday Darren Kiser MD Dec 12, 2015 14:15
--- NOTE | 2015-12-12 14:20 | HHI.PR ---
Subjective Remarks minimal secretions tolerating tube feedings at 30 cc/hr on t piece 50% Objective Vitals Vital Signs Date Time Temp Pulse Resp B/P Pulse Ox O2 Delivery O2 Flow Rate FiO2 12/12/15 08:39 99 T-piece 7.00 50 12/12/15 08:00 99 Bi-Pap 40 12/12/15 08:00 98.8 80 22 114/80 99 12/12/15 08:00 80 12/12/15 06:00 68 12/12/15 05:26 20 12/12/15 04:15 99 40 12/12/15 04:00 98 Bi-Pap 40 12/12/15 04:00 98.4 77 20 127/85 98 12/12/15 04:00 77 12/12/15 02:00 71 12/12/15 01:09 99 40 12/12/15 00:00 74 12/12/15 00:00 98 Bi-Pap 40 12/12/15 00:00 98.1 74 22 107/69 98 12/11/15 22:00 71 12/11/15 20:20 98 Bi-Pap 40 12/11/15 20:16 100 40 12/11/15 20:00 90 12/11/15 20:00 98.3 90 24 120/78 97 12/11/15 20:00 97 T-Piece 35 12/11/15 18:00 83 12/11/15 16:00 97 T-Piece 35 12/11/15 16:00 97.9 81 23 123/85 97 12/11/15 16:00 76 I/O 12/11/15 12/11/15 12/11/15 12/12/15 12/12/15 12/12/15 07:00 15:00 23:00 07:00 15:00 23:00 Intake Total 631 ml 883 ml 435 ml 625 ml Output Total 750 ml 350 ml 475 ml 500 ml 0 ml Balance -119 ml 533 ml -40 ml 125 ml 0 ml IV Total 0 ml 0 ml 0 ml 0 ml Tube Feeding 201 ml 483 ml 205 ml 195 ml Other 430 ml 400 ml 230 ml 430 ml Output Urine Total 750 ml 350 ml 475 ml 500 ml Tube Feeding Residual Discard 0 ml 0 ml 0 ml 0 ml 0 ml # Bowel Movements 2 2 1 0 Result Diagram: 12/09/15 0500 Imaging Last Impressions Chest X-Ray 12/10/15 0600 Signed Impressions: Service Date/Time: December 03:49 - CONCLUSION: Increasing infiltrates, now with consolidation, left lower lung. Tai Jaquez MD Abdomen X-Ray 12/07/15 0600 Signed Impressions: Service Date/Time: Monday, December 07, 2015 03:40 - CONCLUSION: No dilated loops of small or large bowel. Tai Jaquez MD Abdomen Ultrasound 12/06/15 0000 Signed Impressions: Service Date/Time: Sunday, December 06, 2015 17:42 - CONCLUSION: 1. The gallbladder is unremarkable with no evidence of cholelithiasis. 2. Simple cyst in the left kidney. 3. Mild pyelocaliectasis in the right kidney. Salazar Thurman MD Upper Extremity Ultrasound 10/13/15 0000 Signed Impressions: Service Date/Time: Tuesday, October 13, 2015 09:51 - CONCLUSION: 1. No evidence of deep venous thrombosis. John Anderson MD Renal Ultrasound 10/07/15 0000 Signed Impressions: Service Date/Time: Wednesday, October 07, 2015 18:29 - CONCLUSION: 1. No acute findings. 3.6 cm left renal cyst. Valdez catheter in bladder. Amaury Ellsworth MD Tunnelled Chest Tube Removal 08/05/15 1100 Signed Impressions: Service Date/Time: Wednesday, August 05, 2015 11:00 - CONCLUSION: Uncomplicated chest tube removal. Blaine Jackson MD Chest Tube Change 07/31/15 0000 Signed Impressions: Service Date/Time: Friday, July 31, 2015 14:34 - CONCLUSION: Uncomplicated reposition of previously placed chest tube as above. Blaine Jackson MD Chest Tube Insertion 07/30/15 0000 Signed Impressions: Service Date/Time: July 14:50 - CONCLUSION: Uncomplicated chest tube placement as above. Blaine Jackson MD Catheter Change 07/27/15 0000 Signed Impressions: Service Date/Time: Monday, July 27, 2015 14:43 - CONCLUSION: Uncomplicated gastrostomy tube exchange as above. Blaine Jackson MD Chest CT 07/11/15 0000 Signed Impressions: Service Date/Time: Saturday, July 11, 2015 09:49 - CONCLUSION: Scattered patchy densities significantly improved from previous study. Tiny anterior right basilar pneumothorax. Right-sided chest tube in good position. Néstor Matamoros MD Head CT 06/18/151902 Signed Impressions: Service Date/Time: June 19:31 - CONCLUSION: Diffuse atrophy unchanged. No acute intracranial findings. Kush Briscoe MD Abdomen/Pelvis CT 06/18/151902 Signed Impressions: Service Date/Time: June 19:36 - CONCLUSION: 1. Chronic nonspecific urinary bladder wall thickening. Bladder collapsed with Valdez catheter in place. 2. Chronic bilateral mid to lower lung zone groundglass opacity. 3. Nonobstructing left renal calculus. 4. Distended rectum. Kush Briscoe MD Objective Remarks pupils reactive, anicteric, oral mucosa dry trach in place on Tpiece decrease breath sounds, no rales regular rhythm- good bowel sounds, PEG in place extremities - no edema both upper extremities- moves spontaneously lower extremities-flexion contractures sacral area - stage 2-3 decubitus [address] catheter in place Procedures 07/26- PEG replacement 07/29- right pigtail catheter placement for new pneumothorax Urinary Catheter: Yes Valdez insert reason: Prolonged Immobilization Date of Insertion: Oct 05, 2015 A/P Problem List: (1) Sepsis due to urinary tract infection ICD Code: A41.9 Status: Resolved (2) Acute respiratory failure ICD Code: J96.00 Status: Resolved (3) Chronic respiratory failure ICD Code: J96.10 Status: Chronic (4) Parkinson disease ICD Code: G20 Status: Chronic (5) UTI (urinary tract infection) ICD Code: N39.0 Status: Acute (6) Encephalopathy ICD Code: G93.40 Status: Resolved Assessment and Plan 55 years old male with tracheostomy and PEG tube [facility] resident admitted for: Sepsis SHOCK - likely aspiration - S/P antibiotics course 12/08 Valdez changed 11/26 ID ff Acute on chronic respiratory failure- now back on BiPAP Chronic tracheostomy Pneumonia S/P recurrent Right pneumothorax status post pigtail catheter removal Suction secretions Duo nebs 4 times a day and when necessary . On colistin nebs Pulmonary ff Metabolic Encephalopathy - chronic Parkinson's disease Cognitive disorder/Underlying dementia Depression CT head 06/18/15: - diffuse atrophy unchanged. No acute intracranial findings Continue Sinemet 25/100 3 times a day via PEG, Seroquel 50 mg twice a day, olanzapine 5 mg a night, Klonopin 2 mg every 8 hours, Paxil 20 daily and Neurontin 300 mg twice a day. These medications have been slowly titrated up since admission Continue Roxanol 5 mg every 4 hours when necessary pain and fentanyl patch 50 g every 3 days for pain management. History of orthostasis History of CAD, HLP, Hypertension BP stable but on the lower side , pt on midodren and solucortef bid IV started by the intemsivist , since family did not want to start pressors , consider tapering if bp allow Monitor HR and BP keep MAP>65mmHg Malnutrition/protein calorie - moderate Status post PEG Hemorrhoids Gastroesophageal reflux disease Concern for hematemesis 12/05. Started on Protonix gtt. GI evaluated pt. Gastroccult was negative and hemoglobin has been stable - holding tube feeds 12/04 as pt has been vomiting. Resume at lower rate in AM if stable. - Reglan per GI. - KUB. - Current Colace/senna for bowel regimen. - continue PPI. Nonobstructing left renal calculus Hypokalemia Hypernatremia - resolved Acute urinary retention - Monitor renal function, I/O's. electrolytes replacement per protocol. - Continue on Free H20 200ml 3 times a day monitor - ff electrolytes- replacement protocol Candiduria ESBL positive Klebsiella/Pseudomonas pneumonia MRSA colonization - Multidrug resistant UTI- ESBL 02/19/15 , MRSA + 03/20/15 - Heena glabrata in urine 03/19/15 - Recheck blood, sputum and urine cultures 07/06 no growth - 06/17 - blood cultures 2 - CONS/staph epi - 06/17 - sputum - ESBL positive Klebsiella/Pseudomonas Treated 15 days with tobramycin aerosols twice a day. - 06/17 - urine - C. glabrata/tropicalis - treated with Diflucan - currently on Zosyn Anemia - Monitor CBC Bilateral lower extremity Contractures Stage II DU - Wound care ff - Continue physical therapy - Santyl dressing- consult wound care nurse Prophylaxis - GI - Prevacid - DVT - SCDs/[id number] years old male with tracheostomy and PEG tube [facility] resident admitted for: Sepsis SHOCK - likely aspiration - Started IV Zosyn 11/25 Valdez changed 11/26 ID ff Acute on chronic respiratory failure- now back on BiPAP Chronic tracheostomy Pneumonia S/P recurrent Right pneumothorax status post pigtail catheter removal Suction secretions Duo nebs 4 times a day and when necessary . colistin nebs Pulmonary ff Metabolic Encephalopathy - chronic Parkinson's disease Cognitive disorder/Underlying dementia Depression CT head 06/18/15: - diffuse atrophy unchanged. No acute intracranial findings Continue Sinemet 25/100 3 times a day via PEG, Seroquel 50 mg twice a day, olanzapine 5 mg a night, Klonopin 2 mg every 8 hours, Paxil 20 daily and Neurontin 300 mg twice a day. These medications have been slowly titrated up since admission Continue Roxanol 5 mg every 4 hours when necessary pain and fentanyl patch 50 g every 3 days for pain management. History of orthostasis History of CAD, HLP, Hypertension BP stable but on the lower side , pt on midodren and solucortef bid IV started by the intemsivist , since family did not want to start pressors , consider tapering if bp allow Monitor HR and BP keep MAP>65mmHg Malnutrition/protein calorie - moderate Status post PEG Hemorrhoids Gastroesophageal reflux disease Concern for hematemesis 12/05. Started on Protonix gtt. GI evaluated pt. Gastroccult was negative and hemoglobin has been stable - holding tube feeds 12/04 as pt has been vomiting. Resume at lower rate in AM if stable. - Reglan per GI. - KUB. - Current Colace/senna for bowel regimen. - continue PPI. Nonobstructing left renal calculus Hypokalemia Hypernatremia - resolved Acute urinary retention - Monitor renal function, I/O's. electrolytes replacement per protocol. - Continue on Free H20 200ml 3 times a day monitor - ff electrolytes- replacement protocol Candiduria ESBL positive Klebsiella/Pseudomonas pneumonia MRSA colonization - Multidrug resistant UTI- ESBL 02/19/15 , MRSA + 03/20/15 - Heena glabrata in urine 03/19/15 - Recheck blood, sputum and urine cultures 07/06 no growth - 06/17 - blood cultures 2 - CONS/staph epi - 06/17 - sputum - ESBL positive Klebsiella/Pseudomonas Treated 15 days with tobramycin aerosols twice a day. - 06/17 - urine - C. glabrata/tropicalis - treated with Diflucan - currently on Zosyn Anemia - Monitor CBC Bilateral lower extremity Contractures Stage II DU - Wound care ff - Continue physical therapy - Santyl dressing- consult wound care nurse Prophylaxis - GI - Prevacid - DVT - SCDs/[id number] years old male with tracheostomy and PEG tube [facility] resident admitted for: Sepsis SHOCK - likely aspiration - Started IV zosyn. 11/25 valdez changed 11/26 ID ff Acute on chronic respiratory failure- now back on BiPAP Chronic tracheostomy Pneumonia S/P recurrent Right pneumothorax status post pigtail catheter removal Suction secretions Duo nebs 4 times a day and when necessary . colistin nebs Pulmonary ff Metabolic Encephalopathy - chronic Parkinson's disease Cognitive disorder/Underlying dementia Depression CT head 06/18/15: - diffuse atrophy unchanged. No acute intracranial findings Continue Sinemet 25/100 3 times a day via PEG, Seroquel 50 mg twice a day, olanzapine 5 mg a night, Klonopin 2 mg every 8 hours, Paxil 20 daily and Neurontin 300 mg twice a day. These medications have been slowly titrated up since admission Continue Roxanol 5 mg every 4 hours when necessary pain and fentanyl patch 50 g every 3 days for pain management. Cardiac History of orthostasis History of CAD, HLP, Hypertension Continue Midodrine 5 mg twice a day Monitor HR and BP keep MAP>65mmHg GI: Malnutrition/protein calorie - moderate Status post PEG Hemorrhoids Gastroesophageal reflux disease - Tolerating Jevity 1.5 at 50 cc/hr - Current Colace/senna for bowel regimen. /metabolic: Nonobstructing left renal calculus Hypokalemia Hypernatremia - resolved Acute urinary retention - Monitor renal function, I/O's. electrolytes replacement per protocol. - Continue on Free H20 200ml 3 times a day monitor - ff electrolytes- replacement protocol ID: Candiduria ESBL positive Klebsiella/Pseudomonas pneumonia MRSA colonization - Multidrug resistant UTI- ESBL 02/19/15 , MRSA + 03/20/15 - Heena glabrata in urine 03/19/15 - Recheck blood, sputum and urine cultures 07/06 no growth - 06/17 - blood cultures 2 - CONS/staph epi - 06/17 - sputum - ESBL positive Klebsiella/Pseudomonas Treated 15 days with tobramycin aerosols twice a day. - 06/17 - urine - C. glabrata/tropicalis - treated with Diflucan --off Abx. monitor for signs of infections ( Fever, WBC) Endo: --SSI if needed for glycemic control Heme Anemia - Monitor CBC MSK Bilateral lower extremity Contractures Stage II DU - Wound care ff - Continue physical therapy - Santyl dressing- consult wound care nurse Prophylaxis - GI - Prevacid - DVT - SCDs/Lovenox 11/25 I updated our Palliative care service- Ms. Meadows in patient's change of status and she will touch base with family I will continue aggressive medical management. DNR code status- No intubation- d/w Palliative care service 11/26- d/w Palliative who spoke with patient's sister I tried calling number listed on chart - was a Rehab facility no other contact number listed Claire Queen MD Dec 12, 2015 14:20
[2015-12-12] MEDS: OLANZapine 5 MG TAB GT SCH (21:51)
[2015-12-13] VITALS (16 sets, daily range): BP systolic 104; BP diastolic 74; PULSE 56–84; RESP 18; TEMP 97.1; O2SAT 96–100
[2015-12-13] MEDS: RESP: COLISTIN 150 MG VIAL NEB SCH ×4 (00:57→23:15)
[2015-12-13] MEDS: METOCLOPRAMIDE HCL 10 MG/2 ML VIAL IV PUSH SCH ×3 (01:28→17:57)
[2015-12-13] MEDS: INSULIN NovoLIN REGULAR SUPPLEMENTAL SCALE SQ SCH ×4 (01:28→17:57)
[2015-12-13] MEDS: FREE WATER G-TUBE SCH ×6 (04:00→20:00)
[2015-12-13] MEDS: CARBIDOPA/LEVODOPA 25 MG/100 MG TAB GT SCH ×2 (05:58→14:00)
[2015-12-13] MEDS: clonazePAM 1 MG TAB PO SCH ×2 (05:58→16:59)
[2015-12-13] MEDS: PANTOPRAZOLE SOD 40 MG DELAYED RELEASE TAB PO SCH (09:00)
[2015-12-13] MEDS: QUEtiapine FUMARATE 25 MG TAB G-TUBE SCH ×2 (09:48→20:23)
[2015-12-13] MEDS: predniSONE 5 MG TAB PO SCH (09:48)
[2015-12-13] MEDS: HYDROCORTISONE SOD SUCCINATE 100 MG VIAL IV PUSH SCH (09:49)
[2015-12-13] MEDS: LANSOPRAZOLE SOLUTAB 30 MG TAB NG SCH (09:50)
[2015-12-13] MEDS: GABAPENTIN 300 MG CAP G-TUBE SCH ×2 (09:50→20:24)
[2015-12-13] MEDS: MIDODRINE 5 MG TAB G-TUBE SCH ×2 (09:50→20:24)
[2015-12-13] MEDS: SODIUM CHLORIDE 0.9% FLUSH 5 ML FLUSH IVF SCH ×2 (09:50→20:25)
[2015-12-13] MEDS: PARoxetine HCL 20 MG TAB G-TUBE SCH (09:51)
[2015-12-13] MEDS: POTASSIUM CHLORIDE 10 MEQ CAP G-TUBE SCH ×2 (09:51→20:23)
[2015-12-13] MEDS: LACTOBACILLUS ACIDOPHILUS TAB PO SCH ×3 (09:51→17:57)
[2015-12-13] MEDS: COLLAGENASE OINT 30 GM TUBE TOP SCH (09:52)
[2015-12-13] MEDS: ARTIFICIAL TEARS OPTH SOLN 15 ML BTL EACH EYE SCH ×3 (09:52→17:57)
[2015-12-13] MEDS: CHLORHEXIDINE 0.12% (ORAL KIT) 15 ML CUP MT SCH ×2 (09:55→20:23)
--- NOTE | 2015-12-13 14:53 | HHI.PR ---
Subjective Remarks status quo tolerating tube feedings at 30 cc/hr appears comfortable current Fi02- T piece Objective Vitals Vital Signs Date Time Temp Pulse Resp B/P Pulse Ox O2 Delivery O2 Flow Rate FiO2 12/13/15 12:00 99 Bi-Pap 40 12/13/15 12:00 62 12/13/15 10:00 56 12/13/15 09:06 96 T-piece 5.00 28 12/13/15 08:00 56 12/13/15 08:00 99 Bi-Pap 40 12/13/15 06:00 74 12/13/15 04:45 100 40 12/13/15 04:00 99 Bi-Pap 40 12/13/15 04:00 65 12/13/15 02:00 67 12/13/15 00:57 99 40 12/13/15 00:00 97.1 71 18 104/74 98 12/13/15 00:00 72 12/13/15 00:00 100 Bi-Pap 40 12/12/15 22:00 80 12/12/15 20:11 99 40 12/12/15 20:00 64 12/12/15 20:00 99 Bi-Pap 40 12/12/15 20:00 97.3 64 20 120/85 98 12/12/15 18:00 97 12/12/15 17:22 98 T-piece 5.00 28 12/12/15 16:00 99 Bi-Pap 40 12/12/15 16:00 69 12/12/15 16:00 97.8 69 18 119/83 99 I/O 12/12/15 12/12/15 12/12/15 12/13/15 12/13/15 12/13/15 07:00 15:00 23:00 07:00 15:00 23:00 Intake Total 625 ml 778 ml 531 ml 442 ml Output Total 500 ml 1000 ml 300 ml 250 ml 0 ml Balance 125 ml -222 ml 231 ml 192 ml 0 ml IV Total 0 ml 0 ml 0 ml Tube Feeding 195 ml 528 ml 331 ml 242 ml Other 430 ml 250 ml 200 ml 200 ml Output Urine Total 500 ml 1000 ml 300 ml 250 ml Tube Feeding Residual Discard 0 ml 0 ml 0 ml 0 ml # Bowel Movements 0 1 0 1 Result Diagram: 12/09/15 0500 Imaging Last Impressions Chest X-Ray 12/10/15 0600 Signed Impressions: Service Date/Time: December 03:49 - CONCLUSION: Increasing infiltrates, now with consolidation, left lower lung. Tai Jaquez MD Abdomen X-Ray 12/07/15 0600 Signed Impressions: Service Date/Time: Monday, December 07, 2015 03:40 - CONCLUSION: No dilated loops of small or large bowel. Tai Jaquez MD Abdomen Ultrasound 12/06/15 0000 Signed Impressions: Service Date/Time: Sunday, December 06, 2015 17:42 - CONCLUSION: 1. The gallbladder is unremarkable with no evidence of cholelithiasis. 2. Simple cyst in the left kidney. 3. Mild pyelocaliectasis in the right kidney. Salazar Thurman MD Upper Extremity Ultrasound 10/13/15 0000 Signed Impressions: Service Date/Time: Tuesday, October 13, 2015 09:51 - CONCLUSION: 1. No evidence of deep venous thrombosis. John Anderson MD Renal Ultrasound 10/07/15 0000 Signed Impressions: Service Date/Time: Wednesday, October 07, 2015 18:29 - CONCLUSION: 1. No acute findings. 3.6 cm left renal cyst. Valdez catheter in bladder. Amaury Ellsworth MD Tunnelled Chest Tube Removal 08/05/15 1100 Signed Impressions: Service Date/Time: Wednesday, August 05, 2015 11:00 - CONCLUSION: Uncomplicated chest tube removal. Blaine Jackson MD Chest Tube Change 07/31/15 0000 Signed Impressions: Service Date/Time: Friday, July 31, 2015 14:34 - CONCLUSION: Uncomplicated reposition of previously placed chest tube as above. Blaine Jackson MD Chest Tube Insertion 07/30/15 0000 Signed Impressions: Service Date/Time: July 14:50 - CONCLUSION: Uncomplicated chest tube placement as above. Blaine Jackson MD Catheter Change 07/27/15 0000 Signed Impressions: Service Date/Time: Monday, July 27, 2015 14:43 - CONCLUSION: Uncomplicated gastrostomy tube exchange as above. Blaine Jackson MD Chest CT 07/11/15 0000 Signed Impressions: Service Date/Time: Saturday, July 11, 2015 09:49 - CONCLUSION: Scattered patchy densities significantly improved from previous study. Tiny anterior right basilar pneumothorax. Right-sided chest tube in good position. Néstor Matamoros MD Head CT 06/18/151902 Signed Impressions: Service Date/Time: June 19:31 - CONCLUSION: Diffuse atrophy unchanged. No acute intracranial findings. Kush Briscoe MD Abdomen/Pelvis CT 06/18/151902 Signed Impressions: Service Date/Time: June 19:36 - CONCLUSION: 1. Chronic nonspecific urinary bladder wall thickening. Bladder collapsed with Valdez catheter in place. 2. Chronic bilateral mid to lower lung zone groundglass opacity. 3. Nonobstructing left renal calculus. 4. Distended rectum. Kush Briscoe MD Objective Remarks pupils reactive, anicteric, trach in place on Tpiece decrease breath sounds, no rales regular rhythm- good bowel sounds, PEG in place extremities - no edema both upper extremities- moves spontaneously lower extremities-flexion contractures sacral area - stage 2-3 decubitus [address] catheter in place Procedures 07/26- PEG replacement 07/29- right pigtail catheter placement for new pneumothorax Date of Insertion: Oct 05, 2015 A/P Problem List: (1) Sepsis due to urinary tract infection ICD Code: A41.9 Status: Resolved (2) Acute respiratory failure ICD Code: J96.00 Status: Resolved (3) Chronic respiratory failure ICD Code: J96.10 Status: Chronic (4) Parkinson disease ICD Code: G20 Status: Chronic (5) UTI (urinary tract infection) ICD Code: N39.0 Status: Acute (6) Encephalopathy ICD Code: G93.40 Status: Resolved Assessment and Plan 55 years old male with tracheostomy and PEG tube long term resident admitted for: Sepsis SHOCK - likely aspiration - S/P IV antibotics 12/08 Valdez changed 11/26 ID ff Acute on chronic respiratory failure- now back on BiPAP Chronic tracheostomy Pneumonia S/P recurrent Right pneumothorax status post pigtail catheter removal Suction secretions Duo nebs 4 times a day and when necessary . On colistin nebs Pulmonary ff Metabolic Encephalopathy - chronic Parkinson's disease Cognitive disorder/Underlying dementia Depression CT head 06/18/15: - diffuse atrophy unchanged. No acute intracranial findings Continue Sinemet 25/100 3 times a day via PEG, Seroquel 50 mg twice a day, olanzapine 5 mg a night, Klonopin 2 mg every 8 hours, Paxil 20 daily and Neurontin 300 mg twice a day. These medications have been slowly titrated up since admission Continue Roxanol 5 mg every 4 hours when necessary pain and fentanyl patch 50 g every 3 days for pain management. History of orthostasis History of CAD, HLP, Hypertension BP stable but on the lower side , pt on midodren and solucortef bid IV started by the intemsivist , since family did not want to start pressors , consider tapering if bp allow Monitor HR and BP keep MAP>65mmHg Malnutrition/protein calorie - moderate Status post PEG Hemorrhoids Gastroesophageal reflux disease Concern for hematemesis 12/05. Started on Protonix gtt. GI evaluated pt. Gastroccult was negative and hemoglobin has been stable - holding tube feeds 12/04 as pt has been vomiting. - tolerating TF gradually - increase to 40 cc/hr- (goal rate 60 cc/hr) - Reglan per GI. - Current Colace/senna for bowel regimen. - continue PPI. Nonobstructing left renal calculus Hypokalemia Hypernatremia - resolved Acute urinary retention - Monitor renal function, I/O's. electrolytes replacement per protocol. - Continue on Free H20 200ml 3 times a day monitor - ff electrolytes- replacement protocol Candiduria ESBL positive Klebsiella/Pseudomonas pneumonia MRSA colonization - Multidrug resistant UTI- ESBL 02/19/15 , MRSA + 03/20/15 - Heena glabrata in urine 03/19/15 - Recheck blood, sputum and urine cultures 07/06 no growth - 06/17 - blood cultures 2 - CONS/staph epi - 06/17 - sputum - ESBL positive Klebsiella/Pseudomonas Treated 15 days with tobramycin aerosols twice a day. - 06/17 - urine - C. glabrata/tropicalis - treated with Diflucan Anemia - Monitor CBC Bilateral lower extremity Contractures Stage II DU - Wound care ff - Continue physical therapy - Santyl dressing- consult wound care nurse Prophylaxis - GI - Prevacid - DVT - SCDs/[id number] years old male with tracheostomy and PEG tube long term resident admitted for: 11/25 I updated our Palliative care service- Ms. Meadows in patient's change of status and she will touch base with family I will continue aggressive medical management. DNR code status- No intubation- d/w Palliative care service 11/26- d/w Palliative who spoke with patient's sister I tried calling number listed on chart - was a Rehab facility no other contact number listed Claire Queen MD Dec 13, 2015 14:53 Metabolic Encephalopathy - chronic Parkinson's disease Cognitive disorder/Underlying dementia Depression CT head 06/18/15: - diffuse atrophy unchanged. No acute intracranial findings Continue Sinemet 25/100 3 times a day via PEG, Seroquel 50 mg twice a day, olanzapine 5 mg a night, Klonopin 2 mg every 8 hours, Paxil 20 daily and Neurontin 300 mg twice a day. These medications have been slowly titrated up since admission Continue Roxanol 5 mg every 4 hours when necessary pain and fentanyl patch 50 g every 3 days for pain management. History of orthostasis History of CAD, HLP, Hypertension BP stable but on the lower side , pt on midodren and solucortef bid IV started by the intemsivist , since family did not want to start pressors , consider tapering if bp allow Monitor HR and BP keep MAP>65mmHg Malnutrition/protein calorie - moderate Status post PEG Hemorrhoids Gastroesophageal reflux disease Concern for hematemesis 12/05. Started on Protonix gtt. GI evaluated pt. Gastroccult was negative and hemoglobin has been stable - holding tube feeds 12/04 as pt has been vomiting. Resume at lower rate in AM if stable. - Reglan per GI. - KUB. - Current Colace/senna for bowel regimen. - continue PPI. Nonobstructing left renal calculus Hypokalemia Hypernatremia - resolved Acute urinary retention - Monitor renal function, I/O's. electrolytes replacement per protocol. - Continue on Free H20 200ml 3 times a day monitor - ff electrolytes- replacement protocol Candiduria ESBL positive Klebsiella/Pseudomonas pneumonia MRSA colonization - Multidrug resistant UTI- ESBL 02/19/15 , MRSA + 03/20/15 - Heena glabrata in urine 03/19/15 - Recheck blood, sputum and urine cultures 07/06 no growth - 06/17 - blood cultures 2 - CONS/staph epi - 06/17 - sputum - ESBL positive Klebsiella/Pseudomonas Treated 15 days with tobramycin aerosols twice a day. - 06/17 - urine - C. glabrata/tropicalis - treated with Diflucan - currently on Zosyn Anemia - Monitor CBC Bilateral lower extremity Contractures Stage II DU - Wound care ff - Continue physical therapy - Santyl dressing- consult wound care nurse Prophylaxis - GI - Prevacid - DVT - SCDs/[id number] years old male with tracheostomy and PEG tube long term resident admitted for: Sepsis SHOCK - likely aspiration - Started IV zosyn. 11/25 valdez changed 11/26 ID ff Acute on chronic respiratory failure- now back on BiPAP Chronic tracheostomy Pneumonia S/P recurrent Right pneumothorax status post pigtail catheter removal Suction secretions Duo nebs 4 times a day and when necessary . colistin nebs Pulmonary ff Metabolic Encephalopathy - chronic Parkinson's disease Cognitive disorder/Underlying dementia Depression CT head 06/18/15: - diffuse atrophy unchanged. No acute intracranial findings Continue Sinemet 25/100 3 times a day via PEG, Seroquel 50 mg twice a day, olanzapine 5 mg a night, Klonopin 2 mg every 8 hours, Paxil 20 daily and Neurontin 300 mg twice a day. These medications have been slowly titrated up since admission Continue Roxanol 5 mg every 4 hours when necessary pain and fentanyl patch 50 g every 3 days for pain management. Cardiac History of orthostasis History of CAD, HLP, Hypertension Continue Midodrine 5 mg twice a day Monitor HR and BP keep MAP>65mmHg GI: Malnutrition/protein calorie - moderate Status post PEG Hemorrhoids Gastroesophageal reflux disease - Tolerating Jevity 1.5 at 50 cc/hr - Current Colace/senna for bowel regimen. /metabolic: Nonobstructing left renal calculus Hypokalemia Hypernatremia - resolved Acute urinary retention - Monitor renal function, I/O's. electrolytes replacement per protocol. - Continue on Free H20 200ml 3 times a day monitor - ff electrolytes- replacement protocol ID: Candiduria ESBL positive Klebsiella/Pseudomonas pneumonia MRSA colonization - Multidrug resistant UTI- ESBL 02/19/15 , MRSA + 03/20/15 - Heena glabrata in urine 03/19/15 - Recheck blood, sputum and urine cultures 07/06 no growth - 06/17 - blood cultures 2 - CONS/staph epi - 06/17 - sputum - ESBL positive Klebsiella/Pseudomonas Treated 15 days with tobramycin aerosols twice a day. - 06/17 - urine - C. glabrata/tropicalis - treated with Diflucan --off Abx. monitor for signs of infections ( Fever, WBC) Endo: --SSI if needed for glycemic control Heme Anemia - Monitor CBC MSK Bilateral lower extremity Contractures Stage II DU - Wound care ff - Continue physical therapy - Santyl dressing- consult wound care nurse Prophylaxis - GI - Prevacid - DVT - SCDs/Lovenox 11/25 I updated our Palliative care service- Ms. Meadows in patient's change of status and she will touch base with family I will continue aggressive medical management. DNR code status- No intubation- d/w Palliative care service 11/26- d/w Palliative who spoke with patient's sister I tried calling number listed on chart - was a Rehab facility no other contact number listed Claire Queen MD Dec 13, 2015 14:53
--- NOTE | 2015-12-13 15:16 | HHI.PR ---
Subjective Remarks Awake and lethargic . On a T bar FIO2 40 %. On tube feeds 30 CC. No fever. Nods to some questions. . Objective Vital Signs Date Time Temp Pulse Resp B/P Pulse Ox O2 Delivery O2 Flow Rate FiO2 12/13/15 12:00 99 Bi-Pap 40 12/13/15 12:00 62 12/13/15 10:00 56 12/13/15 09:06 96 T-piece 5.00 28 12/13/15 08:00 56 12/13/15 08:00 99 Bi-Pap 40 12/13/15 06:00 74 12/13/15 04:45 100 40 12/13/15 04:00 99 Bi-Pap 40 12/13/15 04:00 65 12/13/15 02:00 67 12/13/15 00:57 99 40 12/13/15 00:00 97.1 71 18 104/74 98 12/13/15 00:00 72 12/13/15 00:00 100 Bi-Pap 40 12/12/15 22:00 80 12/12/15 20:11 99 40 12/12/15 20:00 64 12/12/15 20:00 99 Bi-Pap 40 12/12/15 20:00 97.3 64 20 120/85 98 12/12/15 18:00 97 12/12/15 17:22 98 T-piece 5.00 28 12/12/15 16:00 99 Bi-Pap 40 12/12/15 16:00 69 12/12/15 16:00 97.8 69 18 119/83 99 I/O 12/12/15 12/12/15 12/12/15 12/13/15 12/13/15 12/13/15 07:00 15:00 23:00 07:00 15:00 23:00 Intake Total 625 ml 778 ml 531 ml 442 ml Output Total 500 ml 1000 ml 300 ml 250 ml 0 ml Balance 125 ml -222 ml 231 ml 192 ml 0 ml IV Total 0 ml 0 ml 0 ml Tube Feeding 195 ml 528 ml 331 ml 242 ml Other 430 ml 250 ml 200 ml 200 ml Output Urine Total 500 ml 1000 ml 300 ml 250 ml Tube Feeding Residual Discard 0 ml 0 ml 0 ml 0 ml # Bowel Movements 0 1 0 1 Result Diagram: 12/09/15 0500 Objective Remarks This is a thin white male who is responsive , Lethargic,with a trach tube in place. HEENT: Pupils are equal and reactive to light. Few Throat secretions CHEST:Decreased breath sounds, with Occ Left base crackles CARDIOVASCULAR: S1 and S2 is normal.No murmur. ABDOMEN: Soft, nondistended. BS +. He has a PEG tube in place. EXTREMITIES: No edema.muscle wasting. NEURO: Alert, and has weak extremities, but moves arms. Skin is dry. Assessment and Plan Assessment and Plan IMPRESSION 1. Chronic Respiratory failure. 2. Sepsis, Aspiration. 3. Left basal Pneumonia 4. Tracheobronchitis 5. Parkinson's disease 6. Dementia. 7. Severe Deconditioning. Plan : 1. Continue on 40 % T Bar daytime 2. Nebs Bid , duoneb. 3.Cont tube feeds at 40 CC 4. Cont prednisone 5 mg daily. 5. Levsin .25 mg tid prn for Secretions 6. Cont Trach toilet and lavage. 8. Bipap at HS12/5 ,FIO2 30 % 9. PT for activity/Postural drainage for left base qid. 10. Antibiotic per ID. 11. Chest X ray Monday Darren Kiser MD Dec 13, 2015 15:16 Darren Kiser MD Dec 13, 2015 15:16
[2015-12-13] MEDS: OLANZapine 5 MG TAB GT SCH (20:23)
[2015-12-14] VITALS (17 sets, daily range): BP systolic 105–118; BP diastolic 70–75; PULSE 71–90; RESP 20–28; TEMP 98–98.7; O2SAT 97–100
[2015-12-14] MEDS: clonazePAM 1 MG TAB PO SCH ×4 (00:38→22:34)
[2015-12-14] MEDS: CARBIDOPA/LEVODOPA 25 MG/100 MG TAB GT SCH ×4 (00:38→22:34)
[2015-12-14] MEDS: METOCLOPRAMIDE HCL 10 MG/2 ML VIAL IV PUSH SCH ×3 (00:39→17:11)
[2015-12-14] MEDS: FREE WATER G-TUBE SCH ×6 (04:00→20:00)
[2015-12-14] MEDS: INSULIN NovoLIN REGULAR SUPPLEMENTAL SCALE SQ SCH ×4 (05:25→19:27)
[2015-12-14 07:24] LABS: AUTOMATED NEUTROPHIL # 7.3 TH/MM3 (1.8-7.7); BASOPHIL % 0.3 % (0.0-2.0); EOSINOPHIL # 0.2 TH/MM3 (0-0.4); EOSINOPHIL % 2.2 % (0.0-4.0); HEMATOCRIT 28.6 % (39.0-51.0); HEMO FLAGS DIFF FINAL; LYMPH % 19.6 % (9.0-44.0); MEAN CELL VOLUME 83.7 FL (80.0-100.0); MEAN CORPUSCULAR HGB CONC 33.5 % (32.0-36.0); MONO % 7.5 % (0.0-8.0); NEUT % 70.4 % (16.0-70.0); PLATELET COUNT 203 TH/MM3 (150-450); RED BLOOD COUNT 3.42 MIL/MM3 (4.50-5.90); RED CELL DISTRIBUTION WIDTH 16.1 % (11.6-17.2); WHITE BLOOD COUNT 10.3 TH/MM3 (4.0-11.0)
--- NOTE | 2015-12-14 07:55 | HHI.IDPN ---
Note Infectious Disease Note Chart reviewed No fevers WBC ok. Colistin last day today. Will sign off please call back if any change in clinical condition or questions. Vital Signs Date Time Temp Pulse Resp B/P Pulse Ox O2 Delivery O2 Flow Rate FiO2 12/14/15 06:00 79 12/14/15 04:19 100 40 12/14/15 04:00 100 Bi-Pap 40 12/14/15 04:00 78 12/14/15 02:00 74 12/14/15 00:53 100 40 12/14/15 00:00 71 12/14/15 00:00 99 Bi-Pap 40 12/13/15 22:00 74 12/13/15 20:45 100 40 12/13/15 20:00 100 Bi-Pap 40 12/13/15 20:00 77 12/13/15 18:00 84 12/13/15 16:00 72 12/13/15 16:00 99 Bi-Pap 40 12/13/15 14:00 73 12/13/15 12:00 99 Bi-Pap 40 12/13/15 12:00 62 12/13/15 10:00 56 12/13/15 09:06 96 T-piece 5.00 28 12/13/15 08:00 56 12/13/15 08:00 99 Bi-Pap 40 Laboratory Tests Test 12/14/15 06:20 White Blood Count 10.3 TH/MM3 Red Blood Count 3.42 MIL/MM3 Hemoglobin 9.6 GM/DL Hematocrit 28.6 % Mean Corpuscular Volume 83.7 FL Mean Corpuscular Hemoglobin 28.0 PG Mean Corpuscular Hemoglobin 33.5 % Concent Red Cell Distribution Width 16.1 % Platelet Count 203 TH/MM3 Mean Platelet Volume 9.5 FL Neutrophils (%) (Auto) 70.4 % Lymphocytes (%) (Auto) 19.6 % Monocytes (%) (Auto) 7.5 % Eosinophils (%) (Auto) 2.2 % Basophils (%) (Auto) 0.3 % Neutrophils # (Auto) 7.3 TH/MM3 Lymphocytes # (Auto) 2.0 TH/MM3 Monocytes # (Auto) 0.8 TH/MM3 Eosinophils # (Auto) 0.2 TH/MM3 Basophils # (Auto) 0.0 TH/MM3 CBC Comment DIFF FINAL Differential Comment Trina Moss MD Dec 14, 2015 07:55
[2015-12-14 08:06] LABS: ALKALINE PHOSPHATASE 43 U/L (45-117); ALT (GPT) 10 U/L (12-78); ANION GAP 9 MEQ/L (5-15); AST (GOT) 14 U/L (15-37); BICARBONATE 31.2 MEQ/L (21.0-32.0); BLOOD UREA NITROGEN 11 MG/DL (7-18); CHLORIDE 101 MEQ/L (98-107); GLOMERULAR FILTRATION RATE 207 ML/MIN (>89); POTASSIUM 3.4 MEQ/L (3.5-5.1); SODIUM (NA) 141 MEQ/L (136-145); TOTAL BILIRUBIN ADULT 0.3 MG/DL (0.2-1.0)
[2015-12-14] MEDS: RESP: COLISTIN 150 MG VIAL NEB SCH ×2 (08:25→16:05)
[2015-12-14] MEDS: COLLAGENASE OINT 30 GM TUBE TOP SCH (09:17)
[2015-12-14] MEDS: CHLORHEXIDINE 0.12% (ORAL KIT) 15 ML CUP MT SCH ×2 (09:17→20:07)
[2015-12-14] MEDS: QUEtiapine FUMARATE 25 MG TAB G-TUBE SCH ×2 (09:18→22:34)
[2015-12-14] MEDS: predniSONE 5 MG TAB PO SCH (09:18)
[2015-12-14] MEDS: MIDODRINE 5 MG TAB G-TUBE SCH ×2 (09:18→22:34)
[2015-12-14] MEDS: LANSOPRAZOLE SOLUTAB 30 MG TAB NG SCH (09:18)
[2015-12-14] MEDS: ARTIFICIAL TEARS OPTH SOLN 15 ML BTL EACH EYE SCH ×3 (09:18→17:11)
[2015-12-14] MEDS: PANTOPRAZOLE SOD 40 MG DELAYED RELEASE TAB PO SCH (09:18)
[2015-12-14] MEDS: POTASSIUM CHLORIDE 10 MEQ CAP G-TUBE SCH ×2 (09:18→22:33)
[2015-12-14] MEDS: PARoxetine HCL 20 MG TAB G-TUBE SCH (09:18)
[2015-12-14] MEDS: GABAPENTIN 300 MG CAP G-TUBE SCH ×2 (09:18→22:34)
[2015-12-14] MEDS: LACTOBACILLUS ACIDOPHILUS TAB PO SCH ×3 (09:18→17:11)
[2015-12-14] MEDS: SODIUM CHLORIDE 0.9% FLUSH 5 ML FLUSH IVF SCH ×2 (09:19→20:07)
--- NOTE | 2015-12-14 12:04 | HHI.PR ---
Subjective Remarks Awake and lethargic .Stable On a T bar FIO2 35 %. On tube feeds 40 CC. No fever. Nods to some questions. . CXR showing a left infiltrate Objective Vital Signs Date Time Temp Pulse Resp B/P Pulse Ox O2 Delivery O2 Flow Rate FiO2 12/14/15 10:00 76 12/14/15 08:28 99 T-piece 6.00 40 12/14/15 08:00 80 12/14/15 08:00 100 T-Piece 28 12/14/15 06:00 79 12/14/15 04:19 100 40 12/14/15 04:00 100 Bi-Pap 40 12/14/15 04:00 78 12/14/15 02:00 74 12/14/15 00:53 100 40 12/14/15 00:00 71 12/14/15 00:00 99 Bi-Pap 40 12/13/15 22:00 74 12/13/15 20:45 100 40 12/13/15 20:00 100 Bi-Pap 40 12/13/15 20:00 77 12/13/15 18:00 84 12/13/15 16:00 72 12/13/15 16:00 99 Bi-Pap 40 12/13/15 14:00 73 I/O 12/13/15 12/13/15 12/13/15 12/14/15 12/14/15 12/14/15 07:00 15:00 23:00 07:00 15:00 23:00 Intake Total 442 ml 491 ml 430 ml 441 ml Output Total 250 ml 425 ml 400 ml 300 ml Balance 192 ml 66 ml 30 ml 141 ml IV Total 0 ml 0 ml 0 ml Tube Feeding 242 ml 291 ml 230 ml 241 ml Other 200 ml 200 ml 200 ml 200 ml Output Urine Total 250 ml 425 ml 400 ml 300 ml Tube Feeding Residual Discard 0 ml 0 ml # Bowel Movements 1 0 1 Result Diagram: 12/14/1561912/14/1520 Objective Remarks This is a thin white male who is responsive , Lethargic,with a trach tube in place. HEENT: Pupils are equal and reactive to light. Few Throat secretions CHEST:Decreased breath sounds, with Occ basal crackles CARDIOVASCULAR: S1 and S2 is normal.No murmur. ABDOMEN: Soft, nondistended. BS +. He has a PEG tube in place. EXTREMITIES: No edema.muscle wasting. NEURO: Alert, and has weak extremities, but moves arms. Skin is dry. Assessment and Plan Assessment and Plan IMPRESSION 1. Chronic Respiratory failure. 2. Sepsis, Aspiration. 3. Left basal Pneumonia 4. Tracheobronchitis 5. Parkinson's disease 6. Dementia. 7. Severe Deconditioning. Plan : 1. Continue on 40 % T Bar daytime 2. Nebs Bid , duoneb. 3.Cont tube feeds at 40 CC 4. Cont prednisone 5 mg daily. 5. Levsin .25 mg tid prn for Secretions 6. Cont Trach toilet and lavage. 8. Bipap at HS12/5 ,FIO2 30 % 9. PT for activity/Postural drainage for left base qid. 10. Antibiotic per ID. Darren Kiser MD Dec 14, 2015 12:04
--- NOTE | 2015-12-14 13:08 | RADRPT ---
EXAM DATE/TIME: 12/14/2015 12:21 [facility] COMPARISON: CHEST SINGLE AP, December 10, 2015, 3:49. INDICATIONS : Short of breath, respiratory failure, evaluate infiltrates MEDICAL HISTORY : Hypertension. Gastroesophageal reflux disease. Diabetes mellitus type II. urosepsis SURGICAL HISTORY : tracheostomy ENCOUNTER: Subsequent ACUITY: 1 month PAIN SCORE: Non-responsive. LOCATION: Bilateral chest FINDINGS: Mild left perihilar consolidation but considerably decreased in the interim. Right lung remains reaso nably clear. No pleural effusion or pneumothorax on either side. Heart size stable, thin normal limits. Trach collar again noted. CONCLUSION: Decreasing left perihilar infiltrate. Erlin Escobar MD on December 14, 2015 at 13:05 Board Certified Radiologist. This report was verified electronically.
--- NOTE | 2015-12-14 13:14 | HHI.PR ---
Subjective Remarks patient tolerating tube feedings at 40 cc/hr on t piece 35 % minimal secretions eyes open, tries to forms words Objective Vitals Vital Signs Date Time Temp Pulse Resp B/P Pulse Ox O2 Delivery O2 Flow Rate FiO2 12/14/15 12:15 98.4 88 20 108/70 97 12/14/15 12:00 97 T-Piece 35 12/14/15 12:00 88 12/14/15 10:00 76 12/14/15 08:28 99 T-piece 6.00 40 12/14/15 08:00 80 12/14/15 08:00 100 T-Piece 28 12/14/15 06:00 79 12/14/15 04:19 100 40 12/14/15 04:00 100 Bi-Pap 40 12/14/15 04:00 78 12/14/15 02:00 74 12/14/15 00:53 100 40 12/14/15 00:00 71 12/14/15 00:00 99 Bi-Pap 40 12/13/15 22:00 74 12/13/15 20:45 100 40 12/13/15 20:00 100 Bi-Pap 40 12/13/15 20:00 77 12/13/15 18:00 84 12/13/15 16:00 72 12/13/15 16:00 99 Bi-Pap 40 12/13/15 14:00 73 I/O 12/13/15 12/13/15 12/13/15 12/14/15 12/14/15 12/14/15 07:00 15:00 23:00 07:00 15:00 23:00 Intake Total 442 ml 491 ml 430 ml 441 ml Output Total 250 ml 425 ml 400 ml 300 ml Balance 192 ml 66 ml 30 ml 141 ml IV Total 0 ml 0 ml 0 ml Tube Feeding 242 ml 291 ml 230 ml 241 ml Other 200 ml 200 ml 200 ml 200 ml Output Urine Total 250 ml 425 ml 400 ml 300 ml Tube Feeding Residual Discard 0 ml 0 ml # Bowel Movements 1 0 1 Result Diagram: 12/14/15 0620 12/14/15 06 Imaging Last Impressions Chest X-Ray 12/10/15 0600 Signed Impressions: Service Date/Time: December 03:49 - CONCLUSION: Increasing infiltrates, now with consolidation, left lower lung. Tai Jaquez MD Abdomen X-Ray 12/07/15 0600 Signed Impressions: Service Date/Time: Monday, December 07, 2015 03:40 - CONCLUSION: No dilated loops of small or large bowel. Tai Jaquez MD Abdomen Ultrasound 12/06/15 0000 Signed Impressions: Service Date/Time: Sunday, December 06, 2015 17:42 - CONCLUSION: 1. The gallbladder is unremarkable with no evidence of cholelithiasis. 2. Simple cyst in the left kidney. 3. Mild pyelocaliectasis in the right kidney. Salazar Thurman MD Upper Extremity Ultrasound 10/13/15 0000 Signed Impressions: Service Date/Time: Tuesday, October 13, 2015 09:51 - CONCLUSION: 1. No evidence of deep venous thrombosis. John Anderson MD Renal Ultrasound 10/07/15 0000 Signed Impressions: Service Date/Time: Wednesday, October 07, 2015 18:29 - CONCLUSION: 1. No acute findings. 3.6 cm left renal cyst. Valdez catheter in bladder. Amaury Ellsworth MD Tunnelled Chest Tube Removal 08/05/15 1100 Signed Impressions: Service Date/Time: Wednesday, August 05, 2015 11:00 - CONCLUSION: Uncomplicated chest tube removal. Blaine Jackson MD Chest Tube Change 07/31/15 0000 Signed Impressions: Service Date/Time: Friday, July 31, 2015 14:34 - CONCLUSION: Uncomplicated reposition of previously placed chest tube as above. Blaine Jackson MD Chest Tube Insertion 07/30/15 0000 Signed Impressions: Service Date/Time: July 14:50 - CONCLUSION: Uncomplicated chest tube placement as above. Blaine Jackson MD Catheter Change 07/27/15 0000 Signed Impressions: Service Date/Time: Monday, July 27, 2015 14:43 - CONCLUSION: Uncomplicated gastrostomy tube exchange as above. Blaine Jackson MD Chest CT 07/11/15 0000 Signed Impressions: Service Date/Time: Saturday, July 11, 2015 09:49 - CONCLUSION: Scattered patchy densities significantly improved from previous study. Tiny anterior right basilar pneumothorax. Right-sided chest tube in good position. Néstor Matamoros MD Head CT 06/18/15 635 Signed Impressions: Service Date/Time: June 19:31 - CONCLUSION: Diffuse atrophy unchanged. No acute intracranial findings. Kush Briscoe MD Abdomen/Pelvis CT 06/18/15 1903 Signed Impressions: Service Date/Time: June 19:36 - CONCLUSION: 1. Chronic nonspecific urinary bladder wall thickening. Bladder collapsed with Valdez catheter in place. 2. Chronic bilateral mid to lower lung zone groundglass opacity. 3. Nonobstructing left renal calculus. 4. Distended rectum. Kush Briscoe MD Objective Remarks pupils reactive, anicteric, trach in place on Tpiece decrease breath sounds, no rales regular rhythm- good bowel sounds, PEG in place extremities - no edema both upper extremities- moves spontaneously lower extremities-flexion contractures sacral area - stage 2-3 decubitus valdez catheter in place Procedures 07/26- PEG replacement 07/29- right pigtail catheter placement for new pneumothorax Urinary Catheter: Yes Valdez insert reason: Prolonged Immobilization Date of Insertion: Oct 05, 2015 A/P Problem List: (1) Sepsis due to urinary tract infection ICD Code: A41.9 Status: Resolved (2) Acute respiratory failure ICD Code: J96.00 Status: Resolved (3) Chronic respiratory failure ICD Code: J96.10 Status: Chronic (4) Parkinson disease ICD Code: G20 Status: Chronic (5) UTI (urinary tract infection) ICD Code: N39.0 Status: Acute (6) Encephalopathy ICD Code: G93.40 Status: Resolved Assessment and Plan 55 years old male with tracheostomy and PEG tube [facility]pc resident admitted for: Sepsis SHOCK - likely aspiration - S/P IV antibotics 12/08 Valdez changed 11/26 S/P colistin nebs 12/13 Acute on chronic respiratory failure- now back on BiPAP Chronic tracheostomy Pneumonia S/P recurrent Right pneumothorax status post pigtail catheter removal Suction secretions Duo nebs 4 times a day and when necessary . On colistin nebs- DC 12/13 Pulmonary ff Metabolic Encephalopathy - chronic Parkinson's disease Cognitive disorder/Underlying dementia Depression CT head 06/18/15: - diffuse atrophy unchanged. No acute intracranial findings Continue Sinemet 25/100 3 times a day via PEG, Seroquel 50 mg twice a day, olanzapine 5 mg a night, Klonopin 2 mg every 8 hours, Paxil 20 daily and Neurontin 300 mg twice a day. These medications have been slowly titrated up since admission Continue Roxanol 5 mg every 4 hours when necessary pain and fentanyl patch 50 g every 3 days for pain management. History of orthostasis History of CAD, HLP, Hypertension BP stable but on the lower side , pt on midodren and solucortef bid IV started by the intemsivist , since family did not want to start pressors , consider tapering if bp allow Monitor HR and BP keep MAP>65mmHg Malnutrition/protein calorie - moderate Status post PEG Hemorrhoids Gastroesophageal reflux disease Concern for hematemesis 12/05. Started on Protonix gtt. GI evaluated pt. Gastroccult was negative and hemoglobin has been stable - holding tube feeds 12/04 as pt has been vomiting. - tolerating TF gradually - increase to 40 cc/hr- (goal rate 60 cc/hr)- increase by 5 cc/hr every 8 hours till goal rate reached- d/w staff nurse- Madeleine Rose per GI. - Current Colace/senna for bowel regimen. - continue PPI. Nonobstructing left renal calculus Hypokalemia Hypernatremia - resolved Acute urinary retention - Monitor renal function, I/O's. electrolytes replacement per protocol. - Continue on Free H20 200ml 3 times a day monitor - ff electrolytes- replacement protocol Candiduria ESBL positive Klebsiella/Pseudomonas pneumonia MRSA colonization - Multidrug resistant UTI- ESBL 02/19/15 , MRSA + 03/20/15 - Heena glabrata in urine 03/19/15 - Recheck blood, sputum and urine cultures 07/06 no growth - 06/17 - blood cultures 2 - CONS/staph epi - 06/17 - sputum - ESBL positive Klebsiella/Pseudomonas Treated 15 days with tobramycin aerosols twice a day. - 06/17 - urine - C. glabrata/tropicalis - treated with Diflucan Anemia - Monitor CBC Bilateral lower extremity Contractures Stage II DU - Wound care ff - Continue physical therapy - Santyl dressing- consult wound care nurse Prophylaxis - GI - Prevacid - DVT - SCDs/[id number] years old male with tracheostomy and PEG tube [facility] resident admitted for: Prophylaxis - GI - Prevacid - DVT - SCDs/Lovenox 11/25 I updated our Palliative care service- Ms. Meadows in patient's change of status and she will touch base with family I will continue aggressive medical management. DNR code status- No intubation- d/w Palliative care service 11/26- d/w Palliative who spoke with patient's sister I tried calling number listed on chart - was a Rehab facility no other contact number listed Claire Queen MD Dec 14, 2015 13:14
[2015-12-14] MEDS: OLANZapine 5 MG TAB GT SCH (22:34)
[2015-12-15] VITALS (16 sets, daily range): BP systolic 75–105; BP diastolic 50–71; PULSE 69–112; RESP 16–32; TEMP 95.3–100.5; O2SAT 90–100
[2015-12-15] MEDS: FREE WATER G-TUBE SCH ×6 (04:00→20:00)
[2015-12-15] MEDS: METOCLOPRAMIDE HCL 10 MG/2 ML VIAL IV PUSH SCH ×3 (04:38→16:06)
[2015-12-15] MEDS: INSULIN NovoLIN REGULAR SUPPLEMENTAL SCALE SQ SCH ×4 (06:00→17:17)
[2015-12-15] MEDS: CARBIDOPA/LEVODOPA 25 MG/100 MG TAB GT SCH ×3 (06:13→22:28)
[2015-12-15] MEDS: clonazePAM 1 MG TAB PO SCH ×3 (06:13→22:00)
[2015-12-15] MEDS: CHLORHEXIDINE 0.12% (ORAL KIT) 15 ML CUP MT SCH ×2 (08:00→20:18)
[2015-12-15] MEDS: COLLAGENASE OINT 30 GM TUBE TOP SCH (10:09)
[2015-12-15] MEDS: ARTIFICIAL TEARS OPTH SOLN 15 ML BTL EACH EYE SCH ×3 (10:09→17:17)
[2015-12-15] MEDS: PARoxetine HCL 20 MG TAB G-TUBE SCH (10:10)
[2015-12-15] MEDS: LACTOBACILLUS ACIDOPHILUS TAB PO SCH ×3 (10:10→16:06)
[2015-12-15] MEDS: QUEtiapine FUMARATE 25 MG TAB G-TUBE SCH ×2 (10:10→20:19)
[2015-12-15] MEDS: POTASSIUM CHLORIDE 10 MEQ CAP G-TUBE SCH ×2 (10:10→20:19)
[2015-12-15] MEDS: LANSOPRAZOLE SOLUTAB 30 MG TAB NG SCH (10:10)
[2015-12-15] MEDS: GABAPENTIN 300 MG CAP G-TUBE SCH ×2 (10:10→20:20)
[2015-12-15] MEDS: PANTOPRAZOLE SOD 40 MG DELAYED RELEASE TAB PO SCH (10:10)
[2015-12-15] MEDS: MIDODRINE 5 MG TAB G-TUBE SCH ×2 (10:10→20:20)
[2015-12-15] MEDS: predniSONE 5 MG TAB PO SCH (10:10)
[2015-12-15] MEDS: SODIUM CHLORIDE 0.9% FLUSH 5 ML FLUSH IVF SCH ×2 (10:11→20:19)
--- NOTE | 2015-12-15 15:03 | RADRPT ---
EXAM DATE/TIME: 12/15/2015 13:38 [facility] COMPARISON: CHEST SINGLE AP, December 14, 2015, 12:21. INDICATIONS : Shortness of breath. Possible Aspiration. MEDICAL HISTORY : Hypertension. Gastroesophageal reflux disease. Diabetes mellitus type II. Parkinsons. SURGICAL HISTORY : None. ENCOUNTER: Subsequent ACUITY: 1 month PAIN SCORE: Non-responsive. LOCATION: Bilateral chest FINDINGS: The tracheostomy tube remains in place. No pneumothorax. The lungs are grossly clear. No definite new , nor infiltrates are demonstrated. There are no pleural effusions. CONCLUSION: The lungs are grossly clear. Ilir Agosto MD on December 15, 2015 at 15:00 Board Certified Radiologist. This report was verified electronically.
[2015-12-15] MEDS: LORazepam 2 MG/ML VIAL IVP PRN ×2 (15:44→20:19)
--- NOTE | 2015-12-15 16:25 | HHI.PR ---
Subjective Remarks patient this am - tube feedings suctioned from the trachesotomy hold tube feedings this pm tachypneic and desaturated placed back on BiPAP 60% 5 cm PEEP- sats 95% Objective Vitals Vital Signs Date Time Temp Pulse Resp B/P Pulse Ox O2 Delivery O2 Flow Rate FiO2 12/15/15 15:25 95 60 12/15/15 12:00 98.1 104 26 100/66 96 12/15/15 12:00 96 T-Piece 35 12/15/15 12:00 104 12/15/15 10:00 80 12/15/15 09:19 98 T-piece 5.00 40 12/15/15 08:00 98 T-Piece 35 12/15/15 08:00 76 12/15/15 08:00 98.8 76 24 105/71 98 12/15/15 06:00 72 12/15/15 04:00 97.9 69 16 97/64 98 12/15/15 04:00 69 12/15/15 04:00 98 T-Piece 35 12/15/15 02:00 75 12/15/15 00:00 95.3 82 24 93/59 97 12/15/15 00:00 82 12/15/15 00:00 97 T-Piece 35 12/14/15 22:00 73 12/14/15 20:04 97 T-piece 40 12/14/15 20:00 98.0 78 28 118/75 98 12/14/15 20:00 78 12/14/15 20:00 98 T-Piece 35 12/14/15 18:00 86 I/O 12/14/15 12/14/15 12/14/15 12/15/15 12/15/15 12/15/15 07:00 15:00 23:00 07:00 15:00 23:00 Intake Total 441 ml 345 ml 356 ml 1097 ml Output Total 300 ml 800 ml 875 ml 865 ml Balance 141 ml -455 ml -519 ml 232 ml IV Total 0 ml 0 ml 0 ml Tube Feeding 241 ml 345 ml 296 ml 667 ml Other 200 ml 60 ml 430 ml Output Urine Total 300 ml 800 ml 875 ml 865 ml Tube Feeding Residual Discard 0 ml 0 ml # Bowel Movements 1 3 0 1 Result Diagram: 11/7/16 0620 11/7/16 0620 Imaging Last Impressions Chest X-Ray 12/15/15 0000 Signed Impressions: Service Date/Time: Tuesday, December 15, 2015 13:38 - CONCLUSION: The lungs are grossly clear. Ilir Agosto MD Abdomen X-Ray 12/07/15 0600 Signed Impressions: Service Date/Time: Monday, December 07, 2015 03:40 - CONCLUSION: No dilated loops of small or large bowel. Tai Jaquez MD Abdomen Ultrasound 12/06/15 0000 Signed Impressions: Service Date/Time: Sunday, December 06, 2015 17:42 - CONCLUSION: 1. The gallbladder is unremarkable with no evidence of cholelithiasis. 2. Simple cyst in the left kidney. 3. Mild pyelocaliectasis in the right kidney. Salazar Thurman MD Upper Extremity Ultrasound 10/13/15 0000 Signed Impressions: Service Date/Time: Tuesday, October 13, 2015 09:51 - CONCLUSION: 1. No evidence of deep venous thrombosis. John Anderson MD Renal Ultrasound 10/07/15 0000 Signed Impressions: Service Date/Time: Wednesday, October 07, 2015 18:29 - CONCLUSION: 1. No acute findings. 3.6 cm left renal cyst. Valdez catheter in bladder. Amaury Ellsworth MD Tunnelled Chest Tube Removal 08/05/15 1100 Signed Impressions: Service Date/Time: Wednesday, August 05, 2015 11:00 - CONCLUSION: Uncomplicated chest tube removal. Blaine Jackson MD Chest Tube Change 07/31/15 0000 Signed Impressions: Service Date/Time: Friday, July 31, 2015 14:34 - CONCLUSION: Uncomplicated reposition of previously placed chest tube as above. Blaine Jackson MD Chest Tube Insertion 07/30/15 0000 Signed Impressions: Service Date/Time: July 14:50 - CONCLUSION: Uncomplicated chest tube placement as above. Blaine Jackson MD Catheter Change 07/27/15 0000 Signed Impressions: Service Date/Time: Monday, July 27, 2015 14:43 - CONCLUSION: Uncomplicated gastrostomy tube exchange as above. Blaine Jackson MD Chest CT 07/11/15 0000 Signed Impressions: Service Date/Time: Saturday, July 11, 2015 09:49 - CONCLUSION: Scattered patchy densities significantly improved from previous study. Tiny anterior right basilar pneumothorax. Right-sided chest tube in good position. Néstor Matamoros MD Head CT 06/18/[id number] Signed Impressions: Service Date/Time: June 19:31 - CONCLUSION: Diffuse atrophy unchanged. No acute intracranial findings. Kush Briscoe MD Abdomen/Pelvis CT 06/18/[id number] Signed Impressions: Service Date/Time: June 19:36 - CONCLUSION: 1. Chronic nonspecific urinary bladder wall thickening. Bladder collapsed with Valdez catheter in place. 2. Chronic bilateral mid to lower lung zone groundglass opacity. 3. Nonobstructing left renal calculus. 4. Distended rectum. Kush Briscoe MD Objective Remarks pupils reactive, anicteric, trach in place - placed back on BiPAP decrease breath sounds, no rales regular rhythm- good bowel sounds, PEG in place extremities - no edema both upper extremities- moves spontaneously lower extremities-flexion contractures sacral area - stage 2-3 decubitus valdez catheter in place Procedures 07/26- PEG replacement 07/29- right pigtail catheter placement for new pneumothorax Date of Insertion: Oct 05, 2015 A/P Problem List: (1) Sepsis due to urinary tract infection ICD Code: A41.9 Status: Resolved (2) Acute respiratory failure ICD Code: J96.00 Status: Resolved (3) Chronic respiratory failure ICD Code: J96.10 Status: Chronic (4) Parkinson disease ICD Code: G20 Status: Chronic (5) UTI (urinary tract infection) ICD Code: N39.0 Status: Acute (6) Encephalopathy ICD Code: G93.40 Status: Resolved Assessment and Plan 55 years old male with tracheostomy and PEG tube [facility] resident admitted for: Sepsis SHOCK - likely aspiration - S/P IV antibotics 12/08 Valdez changed 11/26 ID ff Acute respiratory failure- desaturated - placed back Bipap 12/13 On chronic respiratory failure- now back on BiPAP- Chronic tracheostomy aspirationPneumonia S/P recurrent Right pneumothorax status post pigtail catheter removal Suction secretions Duo nebs 4 times a day and when necessary . On colistin nebs Pulmonary ff start antibiotics for aspiration- Start Ceftazidiem and IV flgayl Metabolic Encephalopathy - chronic Parkinson's disease Cognitive disorder/Underlying dementia Depression CT head 06/18/15: - diffuse atrophy unchanged. No acute intracranial findings Continue Sinemet 25/100 3 times a day via PEG, Seroquel 50 mg twice a day, olanzapine 5 mg a night, Klonopin 2 mg every 8 hours, Paxil 20 daily and Neurontin 300 mg twice a day. These medications have been slowly titrated up since admission Continue Roxanol 5 mg every 4 hours when necessary pain and fentanyl patch 50 g every 3 days for pain management. History of orthostasis History of CAD, HLP, Hypertension BP stable but on the lower side , pt on midodren and solucortef bid IV started by the intemsivist , since family did not want to start pressors , consider tapering if bp allow Monitor HR and BP keep MAP>65mmHg Malnutrition/protein calorie - moderate Status post PEG Hemorrhoids Gastroesophageal reflux disease Concern for hematemesis 12/05. Started on Protonix gtt. GI evaluated pt. Gastroccult was negative and hemoglobin has been stable - holding tube feeds 12/04 as pt has been vomiting. - TF- (goal rate 60 cc/hr)- hold due to aspiration and worsening respiratory status - Reglan - Current Colace/senna for bowel regimen. - continue PPI. Nonobstructing left renal calculus Hypokalemia Hypernatremia - resolved Acute urinary retention - Monitor renal function, I/O's. electrolytes replacement per protocol. - Continue on Free H20 200ml 3 times a day monitor - ff electrolytes- replacement protocol Candiduria ESBL positive Klebsiella/Pseudomonas pneumonia MRSA colonization - Multidrug resistant UTI- ESBL 02/19/15 , MRSA + 03/20/15 - Heena glabrata in urine 03/19/15 - Recheck blood, sputum and urine cultures 07/06 no growth - 06/17 - blood cultures 2 - CONS/staph epi - 06/17 - sputum - ESBL positive Klebsiella/Pseudomonas Treated 15 days with tobramycin aerosols twice a day. - 06/17 - urine - C. glabrata/tropicalis - treated with Diflucan Anemia - Monitor CBC Bilateral lower extremity Contractures Stage II DU - Wound care ff - Continue physical therapy - Santyl dressing- consult wound care nurse Prophylaxis - GI - Prevacid - DVT - SCDs/Qmxatdi89 years old male with tracheostomy and PEG tube [facility] resident admitted for: 11/25 I updated our Palliative care service- Ms. Meadows in patient's change of status and she will touch base with family I will continue aggressive medical management. DNR code status- No intubation- d/w Palliative care service 11/26- d/w Palliative who spoke with patient's sister I tried calling number listed on chart - was a Rehab facility no other contact number listed Claire Queen MD Dec 15, 2015 16:25
[2015-12-15] MEDS: MORPHINE SULFATE 4 MG/ML INJ IV PUSH PRN (16:33)
[2015-12-15] MEDS: metroNIDAZOLE 500 MG INJ 100 ML IV SCH (17:16)
[2015-12-15] MEDS: cefTAZidime INJ 1,000 MG in SODIUM CHLORIDE 0.9% INJ 100 ML IV SCH (17:16)
[2015-12-15] MEDS: OLANZapine 5 MG TAB GT SCH (20:20)
[2015-12-15] MEDS ORDERED: SODIUM CHLOR 0.9% 250 ML INJ 250 ML IV ONE (22:45)
[2015-12-16] VITALS (16 sets, daily range): BP systolic 78–127; BP diastolic 50–84; PULSE 66–91; RESP 22–24; TEMP 97.5–98.9; O2SAT 96–100
[2015-12-16] MEDS: metroNIDAZOLE 500 MG INJ 100 ML IV SCH ×4 (00:11→17:10)
[2015-12-16] MEDS ORDERED: HYDROCORTISONE SOD SUCCINATE 100 MG VIAL IV PUSH ONE (01:15)
[2015-12-16] MEDS ORDERED: SODIUM CHLOR 0.9% 1000 ML INJ 1,000 ML IV ONE (01:15)
[2015-12-16] MEDS: cefTAZidime INJ 1,000 MG in SODIUM CHLORIDE 0.9% INJ 100 ML IV SCH ×3 (01:23→17:00)
[2015-12-16] MEDS: METOCLOPRAMIDE HCL 10 MG/2 ML VIAL IV PUSH SCH ×3 (01:47→17:10)
[2015-12-16] MEDS ORDERED: SODIUM CHLORID 0.9% 500 ML INJ 500 ML IV ONE (02:00)
[2015-12-16] MEDS: FREE WATER G-TUBE SCH ×6 (04:00→20:00)
[2015-12-16 05:27] LABS: HEMATOCRIT 30.6 % (39.0-51.0); MEAN CORPUSCULAR HEMOGLOBIN 27.3 PG (27.0-34.0); MEAN CORPUSCULAR HGB CONC 31.4 % (32.0-36.0); PLATELET COUNT 138 TH/MM3 (150-450); RED BLOOD COUNT 3.51 MIL/MM3 (4.50-5.90); RED CELL DISTRIBUTION WIDTH 15.6 % (11.6-17.2); WHITE BLOOD COUNT 18.9 TH/MM3 (4.0-11.0)
[2015-12-16 05:34] LABS: ALKALINE PHOSPHATASE 43 U/L (45-117); ALT (GPT) 6 U/L (12-78); ANION GAP 7 MEQ/L (5-15); AST (GOT) 29 U/L (15-37); BICARBONATE 26.8 MEQ/L (21.0-32.0); CHLORIDE 106 MEQ/L (98-107); GLOMERULAR FILTRATION RATE 219 ML/MIN (>89); POTASSIUM 4.6 MEQ/L (3.5-5.1); SODIUM (NA) 140 MEQ/L (136-145); TOTAL BILIRUBIN ADULT 0.6 MG/DL (0.2-1.0)
[2015-12-16 05:50] LABS: BLOOD UREA NITROGEN 14 MG/DL (7-18)
[2015-12-16] MEDS: INSULIN NovoLIN REGULAR SUPPLEMENTAL SCALE SQ SCH ×4 (06:00→17:11)
[2015-12-16] MEDS: clonazePAM 1 MG TAB PO SCH ×3 (06:02→22:16)
[2015-12-16] MEDS: CARBIDOPA/LEVODOPA 25 MG/100 MG TAB GT SCH ×3 (06:02→22:16)
[2015-12-16] MEDS: HYDROCORTISONE SOD SUCCINATE 100 MG VIAL IV PUSH SCH ×3 (06:02→22:15)
[2015-12-16 06:48] LABS: HEMO FLAGS AUTO DIFF
[2015-12-16 07:05] LABS: BANDS 18 % (0-6); EOSINOPHILS 2 % (0-4); NEUTROPHIL # MANUAL DIFF 15.9 TH/MM3 (1.8-7.7); POLYS (SEG NEUTROPHILS) 66 % (16-70); WBC DIFF SAMPLE 100
[2015-12-16 07:06] LABS: PLATELET ESTIMATE SMEAR LOW (NORMAL); PLATELET MORPHOLOGY NORMAL (NORMAL); SCAN/DIFF FINAL DIFF MANUAL
[2015-12-16] MEDS: PARoxetine HCL 20 MG TAB G-TUBE SCH (07:53)
[2015-12-16] MEDS: POTASSIUM CHLORIDE 10 MEQ CAP G-TUBE SCH ×2 (07:53→20:38)
[2015-12-16] MEDS: MIDODRINE 5 MG TAB G-TUBE SCH ×2 (07:53→20:39)
[2015-12-16] MEDS: LANSOPRAZOLE SOLUTAB 30 MG TAB NG SCH (07:53)
[2015-12-16] MEDS: QUEtiapine FUMARATE 25 MG TAB G-TUBE SCH ×2 (07:53→20:39)
[2015-12-16] MEDS: predniSONE 5 MG TAB PO SCH (07:54)
[2015-12-16] MEDS: ARTIFICIAL TEARS OPTH SOLN 15 ML BTL EACH EYE SCH ×3 (07:54→17:11)
[2015-12-16] MEDS: CHLORHEXIDINE 0.12% (ORAL KIT) 15 ML CUP MT SCH ×2 (07:54→20:38)
[2015-12-16] MEDS: GABAPENTIN 300 MG CAP G-TUBE SCH ×2 (07:54→20:38)
[2015-12-16] MEDS: PANTOPRAZOLE SOD 40 MG DELAYED RELEASE TAB PO SCH (07:54)
[2015-12-16] MEDS: LACTOBACILLUS ACIDOPHILUS TAB PO SCH ×3 (07:55→17:10)
[2015-12-16] MEDS: SODIUM CHLORIDE 0.9% FLUSH 5 ML FLUSH IVF SCH ×2 (07:55→20:39)
[2015-12-16] MEDS: COLLAGENASE OINT 30 GM TUBE TOP SCH (09:00)
--- NOTE | 2015-12-16 12:45 | HHI.PR ---
Subjective Remarks Awake and lethargic . On a T bar FIO2 50 %. On tube feeds 30 CC. No fever. No response to commands Objective Vital Signs Date Time Temp Pulse Resp B/P Pulse Ox O2 Delivery O2 Flow Rate FiO2 12/16/15 10:00 75 12/16/15 08:53 99 T-piece 5.00 40 12/16/15 08:00 75 12/16/15 08:00 99 Bi-Pap 50 12/16/15 08:00 98.0 81 22 108/82 99 12/16/15 06:00 75 12/16/15 04:26 99 50 12/16/15 04:00 66 12/16/15 04:00 99 Bi-Pap 50 12/16/15 04:00 97.5 66 22 98/62 99 12/16/15 02:00 77 12/16/15 01:01 100 50 12/16/15 00:00 89 12/16/15 00:00 98.6 89 22 78/50 100 12/16/15 00:00 100 Bi-Pap 50 12/15/15 22:28 100 50 12/15/15 22:00 98 12/15/15 22:00 99 Bi-Pap 50 12/15/15 20:14 98 BiPAP 60 12/15/15 20:14 98 60 12/15/15 20:00 100.5 101 28 75/52 96 12/15/15 20:00 101 12/15/15 20:00 96 Bi-Pap 60 12/15/15 18:00 104 12/15/15 16:00 99.0 112 32 76/50 90 12/15/15 16:00 90 Bi-Pap 60 12/15/15 16:00 112 12/15/15 15:25 95 60 12/15/15 14:00 109 I/O 12/15/15 12/15/15 12/15/15 12/16/15 12/16/15 12/16/15 07:00 15:00 23:00 07:00 15:00 23:00 Intake Total 1097 ml 340 ml 633 ml 1006 ml Output Total 865 ml 975 ml 100 ml 300 ml Balance 232 ml -635 ml 533 ml 706 ml IV Total 0 ml 433 ml 976 ml Tube Feeding 667 ml 240 ml 0 ml Tube Irrigant 100 ml Other 430 ml 200 ml 30 ml Output Urine Total 865 ml 975 ml 100 ml 225 ml Gastric Drainage Total 75 ml Tube Feeding Residual Discard 0 ml # Bowel Movements 1 1 0 0 Result Diagram: 12/16/1543612/16/15436 Objective Remarks This is a thin white male who is responsive , Lethargic,with a trach tube in place. HEENT: Pupils are equal and reactive to light. Few Throat secretions CHEST:Decreased breath sounds, with Occ basal crackles, and wheezes. CARDIOVASCULAR: S1 and S2 is normal.No murmur. ABDOMEN: Soft, nondistended. BS +. He has a PEG tube in place. EXTREMITIES: No edema.muscle wasting. NEURO: Alert, and has weak extremities, but moves arms. Skin is dry. Assessment and Plan Assessment and Plan IMPRESSION 1. Chronic Respiratory failure. 2. Sepsis, Aspiration. 3. Left basal Pneumonia 4. Tracheobronchitis 5. Parkinson's disease 6. Dementia. 7. Severe Deconditioning. Plan : 1. Continue on 40 % T Bar daytime 2. Nebs Bid , duoneb. 3.Cont tube feeds at 40 CC 4. prednisone 5 mg daily. 5. Levsin .25 mg tid prn for Secretions 6. Cont Trach toilet and lavage. 8. Bipap at HS12/5 ,FIO2 30 % 9. PT for activity/Postural drainage qid. 10. Antibiotic per ID. Darren Kiser MD Dec 16, 2015 12:45
--- NOTE | 2015-12-16 13:14 | HHI.PR ---
Subjective Remarks BP dropped last evening tube feedings - held 12/14 TF suctioned out of tracheostomy Objective Vitals Vital Signs Date Time Temp Pulse Resp B/P Pulse Ox O2 Delivery O2 Flow Rate FiO2 12/16/15 10:00 75 12/16/15 08:53 99 T-piece 5.00 40 12/16/15 08:00 75 12/16/15 08:00 99 Bi-Pap 50 12/16/15 08:00 98.0 81 22 108/82 99 12/16/15 06:00 75 12/16/15 04:26 99 50 12/16/15 04:00 66 12/16/15 04:00 99 Bi-Pap 50 12/16/15 04:00 97.5 66 22 98/62 99 12/16/15 02:00 77 12/16/15 01:01 100 50 12/16/15 00:00 89 12/16/15 00:00 98.6 89 22 78/50 100 12/16/15 00:00 100 Bi-Pap 50 12/15/15 22:28 100 50 12/15/15 22:00 98 12/15/15 22:00 99 Bi-Pap 50 12/15/15 20:14 98 BiPAP 60 12/15/15 20:14 98 60 12/15/15 20:00 100.5 101 28 75/52 96 12/15/15 20:00 101 12/15/15 20:00 96 Bi-Pap 60 12/15/15 18:00 104 12/15/15 16:00 99.0 112 32 76/50 90 12/15/15 16:00 90 Bi-Pap 60 12/15/15 16:00 112 12/15/15 15:25 95 60 12/15/15 14:00 109 I/O 12/15/15 12/15/15 12/15/15 12/16/15 12/16/15 12/16/15 07:00 15:00 23:00 07:00 15:00 23:00 Intake Total 1097 ml 340 ml 633 ml 1006 ml Output Total 865 ml 975 ml 100 ml 300 ml Balance 232 ml -635 ml 533 ml 706 ml IV Total 0 ml 433 ml 976 ml Tube Feeding 667 ml 240 ml 0 ml Tube Irrigant 100 ml Other 430 ml 200 ml 30 ml Output Urine Total 865 ml 975 ml 100 ml 225 ml Gastric Drainage Total 75 ml Tube Feeding Residual Discard 0 ml # Bowel Movements 1 1 0 0 Result Diagram: 12/16/1543612/16/15436 Imaging Last Impressions Chest X-Ray 12/15/15 0000 Signed Impressions: Service Date/Time: Tuesday, December 15, 2015 13:38 - CONCLUSION: The lungs are grossly clear. Ilir Agosto MD Abdomen X-Ray 12/07/15 0600 Signed Impressions: Service Date/Time: Monday, December 07, 2015 03:40 - CONCLUSION: No dilated loops of small or large bowel. Tai Jaquez MD Abdomen Ultrasound 12/06/15 0000 Signed Impressions: Service Date/Time: Sunday, December 06, 2015 17:42 - CONCLUSION: 1. The gallbladder is unremarkable with no evidence of cholelithiasis. 2. Simple cyst in the left kidney. 3. Mild pyelocaliectasis in the right kidney. Salazar Thurman MD Upper Extremity Ultrasound 10/13/15 0000 Signed Impressions: Service Date/Time: Tuesday, October 13, 2015 09:51 - CONCLUSION: 1. No evidence of deep venous thrombosis. John Anderson MD Renal Ultrasound 10/07/15 0000 Signed Impressions: Service Date/Time: Wednesday, October 07, 2015 18:29 - CONCLUSION: 1. No acute findings. 3.6 cm left renal cyst. Valdez catheter in bladder. Amaury Ellsworth MD Tunnelled Chest Tube Removal 08/05/15 1100 Signed Impressions: Service Date/Time: Wednesday, August 05, 2015 11:00 - CONCLUSION: Uncomplicated chest tube removal. Blaine Jackson MD Chest Tube Change 07/31/15 0000 Signed Impressions: Service Date/Time: Friday, July 31, 2015 14:34 - CONCLUSION: Uncomplicated reposition of previously placed chest tube as above. Blaine Jackson MD Chest Tube Insertion 07/30/15 0000 Signed Impressions: Service Date/Time: July 14:50 - CONCLUSION: Uncomplicated chest tube placement as above. Blaine Jackson MD Catheter Change 07/27/15 0000 Signed Impressions: Service Date/Time: Monday, July 27, 2015 14:43 - CONCLUSION: Uncomplicated gastrostomy tube exchange as above. Blaine Jackson MD Chest CT 07/11/15 0000 Signed Impressions: Service Date/Time: Saturday, July 11, 2015 09:49 - CONCLUSION: Scattered patchy densities significantly improved from previous study. Tiny anterior right basilar pneumothorax. Right-sided chest tube in good position. Néstor Matamoros MD Head CT 06/18/151902 Signed Impressions: Service Date/Time: June 19:31 - CONCLUSION: Diffuse atrophy unchanged. No acute intracranial findings. Kush Briscoe MD Abdomen/Pelvis CT 06/18/151902 Signed Impressions: Service Date/Time: June 19:36 - CONCLUSION: 1. Chronic nonspecific urinary bladder wall thickening. Bladder collapsed with Valdez catheter in place. 2. Chronic bilateral mid to lower lung zone groundglass opacity. 3. Nonobstructing left renal calculus. 4. Distended rectum. Kush Briscoe MD Objective Remarks pupils reactive, anicteric, trach in place - in t piece decrease breath sounds, no rales regular rhythm- good bowel sounds, PEG in place extremities - no edema both upper extremities- moves spontaneously lower extremities-flexion contractures sacral area - stage 2-3 decubitus valdez catheter in place Procedures 07/26- PEG replacement 07/29- right pigtail catheter placement for new pneumothorax Urinary Catheter: Yes Valdez insert reason: Prolonged Immobilization Date of Insertion: Oct 05, 2015 A/P Problem List: (1) Sepsis due to urinary tract infection ICD Code: A41.9 Status: Resolved (2) Acute respiratory failure ICD Code: J96.00 Status: Resolved (3) Chronic respiratory failure ICD Code: J96.10 Status: Chronic (4) Parkinson disease ICD Code: G20 Status: Chronic (5) UTI (urinary tract infection) ICD Code: N39.0 Status: Acute (6) Encephalopathy ICD Code: G93.40 Status: Resolved Assessment and Plan 55 years old male with tracheostomy and PEG tube longterm resident admitted for: Sepsis SHOCK - likely aspiration - Recurrent Aspiration S/P IV antibotics 12/08 Valdez changed 11/26 - started on flagyl IV and Ceftaz IV 12/14 - will reconsult ID - feedings was restarted gradually 12/14. Hold tube feedings Acute respiratory failure- desaturated - Dr. Julee ff On chronic respiratory failure- now back on BiPAP- Chronic tracheostomy S/P recurrent Right pneumothorax status post pigtail catheter removal Suction secretions Duo nebs 4 times a day and when necessary . On colistin nebs Pulmonary ff start antibiotics for aspiration- Start Ceftazidime and IV flagyl Bipap at hs . 40% T piece daytime Metabolic Encephalopathy - chronic Parkinson's disease Cognitive disorder/Underlying dementia Depression CT head 06/18/15: - diffuse atrophy unchanged. No acute intracranial findings Continue Sinemet 25/100 3 times a day via PEG, Seroquel 50 mg twice a day, olanzapine 5 mg a night, Klonopin 2 mg every 8 hours, Paxil 20 daily and Neurontin 300 mg twice a day. These medications have been slowly titrated up since admission Continue Roxanol 5 mg every 4 hours when necessary pain and fentanyl patch 50 g every 3 days for pain management. History of orthostasis History of CAD, HLP, Hypertension BP stable but on the lower side , pt on midodren and solucortef bid IV started by the intemsivist , since family did not want to start pressors , consider tapering if bp allow Monitor HR and BP keep MAP>65mmHg Malnutrition/protein calorie - moderate Status post PEG Hemorrhoids Gastroesophageal reflux disease Concern for hematemesis 12/05. Started on Protonix gtt. GI evaluated pt. Gastroccult was negative and hemoglobin has been stable - holding tube feeds 12/04 as pt has been vomiting. - TF- (goal rate 60 cc/hr)- hold due to aspiration and worsening respiratory status - Reglan - Current Colace/senna for bowel regimen. - continue PPI. Nonobstructing left renal calculus Hypokalemia Hypernatremia - resolved Acute urinary retention - Monitor renal function, I/O's. electrolytes replacement per protocol. - Continue on Free H20 200ml 3 times a day monitor - ff electrolytes- replacement protocol Candiduria ESBL positive Klebsiella/Pseudomonas pneumonia MRSA colonization - Multidrug resistant UTI- ESBL 02/19/15 , MRSA + 03/20/15 - Heena glabrata in urine 03/19/15 - Recheck blood, sputum and urine cultures 07/06 no growth - 06/17 - blood cultures 2 - CONS/staph epi - 06/17 - sputum - ESBL positive Klebsiella/Pseudomonas Treated 15 days with tobramycin aerosols twice a day. - 06/17 - urine - C. glabrata/tropicalis - treated with Diflucan Anemia - Monitor CBC Bilateral lower extremity Contractures Stage II DU - Wound care ff - Continue physical therapy - Santyl dressing- consult wound care nurse Prophylaxis - GI - Prevacid - DVT - SCDs/[id number] years old male with tracheostomy and PEG tube longterm resident admitted for: 11/25 I updated our Palliative care service- Ms. Meadows in patient's change of status and she will touch base with family I will continue aggressive medical management. DNR code status- No intubation- d/w Palliative care service 11/26- d/w Palliative who spoke with patient's sister I tried calling number listed on chart - was a Rehab facility no other contact number listed Claire Queen MD Dec 16, 2015 13:14
[2015-12-16 17:29] LABS: BACTERIA, URINE RARE /hpf; BLOOD, URINE MOD (NEG); GLUCOSE,URINE NEG (NEG); KETONE, URINE 10 mg/dL (NEG); MUCUS URINE FEW /lpf (OCC); NITRITE,URINE NEG (NEG); SQUAMOUS EPITHELIAL CELL URINE <1 /hpf (0-5); URINE COLOR YELLOW (YELLW/STRAW)
[2015-12-16 17:31] LABS: COMMENT (UR) CATH-CULTURE IND; CULTURE IF INDICATED CATH CULTURE IND
[2015-12-16] MEDS: SODIUM CHLOR 0.9% 1000 ML INJ 1,000 ML IV SCH (18:35)
[2015-12-16] MEDS: OLANZapine 5 MG TAB GT SCH (20:39)
[2015-12-17] VITALS (17 sets, daily range): BP systolic 118–141; BP diastolic 80–95; PULSE 68–92; RESP 18–25; TEMP 98.3–98.8; O2SAT 93–100
[2015-12-17] MEDS: metroNIDAZOLE 500 MG INJ 100 ML IV SCH ×3 (00:15→12:19)
[2015-12-17] MEDS: cefTAZidime INJ 1,000 MG in SODIUM CHLORIDE 0.9% INJ 100 ML IV SCH ×3 (00:17→16:56)
[2015-12-17] MEDS: METOCLOPRAMIDE HCL 10 MG/2 ML VIAL IV PUSH SCH ×3 (00:17→17:48)
[2015-12-17] MEDS: FREE WATER G-TUBE SCH ×6 (03:51→19:44)
[2015-12-17] MEDS: SODIUM CHLOR 0.9% 1000 ML INJ 1,000 ML IV SCH ×2 (03:51→15:44)
[2015-12-17] MEDS: CARBIDOPA/LEVODOPA 25 MG/100 MG TAB GT SCH ×3 (05:19→22:03)
[2015-12-17] MEDS: clonazePAM 1 MG TAB PO SCH ×3 (05:19→22:03)
[2015-12-17] MEDS: HYDROCORTISONE SOD SUCCINATE 100 MG VIAL IV PUSH SCH ×3 (05:19→22:03)
[2015-12-17 05:43] LABS: BICARBONATE 25.4 MEQ/L (21.0-32.0); POTASSIUM 3.7 MEQ/L (3.5-5.1)
[2015-12-17] MEDS: INSULIN NovoLIN REGULAR SUPPLEMENTAL SCALE SQ SCH ×4 (05:45→17:48)
[2015-12-17] MEDS: ARTIFICIAL TEARS OPTH SOLN 15 ML BTL EACH EYE SCH ×3 (08:10→17:49)
[2015-12-17] MEDS: CHLORHEXIDINE 0.12% (ORAL KIT) 15 ML CUP MT SCH ×2 (08:10→19:43)
[2015-12-17] MEDS: PARoxetine HCL 20 MG TAB G-TUBE SCH (08:12)
[2015-12-17] MEDS: POTASSIUM CHLORIDE 10 MEQ CAP G-TUBE SCH ×2 (08:12→19:43)
[2015-12-17] MEDS: MIDODRINE 5 MG TAB G-TUBE SCH ×2 (08:13→19:44)
[2015-12-17] MEDS: PANTOPRAZOLE SOD 40 MG DELAYED RELEASE TAB PO SCH (08:13)
[2015-12-17] MEDS: predniSONE 5 MG TAB PO SCH (08:13)
[2015-12-17] MEDS: QUEtiapine FUMARATE 25 MG TAB G-TUBE SCH ×2 (08:13→19:44)
[2015-12-17] MEDS: LANSOPRAZOLE SOLUTAB 30 MG TAB NG SCH (08:14)
[2015-12-17] MEDS: LACTOBACILLUS ACIDOPHILUS TAB PO SCH ×3 (08:14→17:48)
[2015-12-17] MEDS: COLLAGENASE OINT 30 GM TUBE TOP SCH (08:14)
[2015-12-17] MEDS: GABAPENTIN 300 MG CAP G-TUBE SCH ×2 (08:14→19:43)
[2015-12-17] MEDS: SODIUM CHLORIDE 0.9% FLUSH 5 ML FLUSH IVF SCH ×2 (08:15→19:44)
[2015-12-17] MEDS: MORPHINE SULFATE 4 MG/ML INJ IV PUSH PRN (14:48)
--- NOTE | 2015-12-17 15:26 | HHI.PR ---
Subjective Remarks restart tube feedings at 10 cc/hr tolerating so far increase gradually- set goal rate of 50 cc- d/w staff nurse on review- patient had vomiting at goal rate of 60 cc/hr Objective Vitals Vital Signs Date Time Temp Pulse Resp B/P Pulse Ox O2 Delivery O2 Flow Rate FiO2 12/17/15 14:00 85 12/17/15 12:00 75 12/17/15 12:00 98.3 79 23 139/83 100 12/17/15 12:00 100 T-Piece 40 12/17/15 10:00 86 12/17/15 08:00 92 12/17/15 08:00 96 T-Piece 40 12/17/15 08:00 98.5 92 25 137/95 98 12/17/15 07:46 96 T-piece 40 12/17/15 06:00 88 12/17/15 04:00 93 T-Piece 40 12/17/15 04:00 98.7 85 23 131/90 93 12/17/15 04:00 85 12/17/15 03:58 98 35 12/17/15 02:00 82 12/17/15 01:10 96 35 12/17/15 00:00 83 12/17/15 00:00 99 T-Piece 40 12/17/15 00:00 98.4 83 19 118/80 97 12/16/15 22:00 91 12/16/15 20:20 96 T-piece 40 12/16/15 20:00 98.9 86 24 119/81 97 12/16/15 20:00 97 T-Piece 40 12/16/15 20:00 86 12/16/15 18:00 81 12/16/15 16:00 98.6 81 22 127/84 99 12/16/15 16:00 81 12/16/15 16:00 99 Bi-Pap 50 I/O 12/16/15 12/16/15 12/16/15 12/17/15 12/17/15 12/17/15 07:00 15:00 23:00 07:00 15:00 23:00 Intake Total 1006 ml 525 ml 783 ml 1145 ml 1358 ml Output Total 300 ml 300 ml 150 ml 150 ml 150 ml Balance 706 ml 225 ml 633 ml 995 ml 1208 ml IV Total 976 ml 325 ml 583 ml 745 ml 942 ml Tube Feeding 0 ml 0 ml 16 ml Other 30 ml 200 ml 200 ml 400 ml 400 ml Output Urine Total 225 ml 300 ml 150 ml 150 ml 150 ml Gastric Drainage Total 75 ml 0 ml 0 ml # Bowel Movements 0 1 1 1 1 Result Diagram: 12/16/15 0437 12/17/15 0443 Imaging Last Impressions Chest X-Ray 12/15/15 0000 Signed Impressions: Service Date/Time: Tuesday, December 15, 2015 13:38 - CONCLUSION: The lungs are grossly clear. Ilir Agosto MD Abdomen X-Ray 12/07/15 0600 Signed Impressions: Service Date/Time: Monday, December 07, 2015 03:40 - CONCLUSION: No dilated loops of small or large bowel. Tai Jaquez MD Abdomen Ultrasound 12/06/15 0000 Signed Impressions: Service Date/Time: Sunday, December 06, 2015 17:42 - CONCLUSION: 1. The gallbladder is unremarkable with no evidence of cholelithiasis. 2. Simple cyst in the left kidney. 3. Mild pyelocaliectasis in the right kidney. Salazar Thurman MD Upper Extremity Ultrasound 10/13/15 0000 Signed Impressions: Service Date/Time: Tuesday, October 13, 2015 09:51 - CONCLUSION: 1. No evidence of deep venous thrombosis. John Anderson MD Renal Ultrasound 10/07/15 0000 Signed Impressions: Service Date/Time: Wednesday, October 07, 2015 18:29 - CONCLUSION: 1. No acute findings. 3.6 cm left renal cyst. Valdez catheter in bladder. Amaury Ellsworth MD Tunnelled Chest Tube Removal 08/05/15 1100 Signed Impressions: Service Date/Time: Wednesday, August 05, 2015 11:00 - CONCLUSION: Uncomplicated chest tube removal. Blaine Jackson MD Chest Tube Change 07/31/15 0000 Signed Impressions: Service Date/Time: Friday, July 31, 2015 14:34 - CONCLUSION: Uncomplicated reposition of previously placed chest tube as above. Blaine Jackson MD Chest Tube Insertion 07/30/15 0000 Signed Impressions: Service Date/Time: July 14:50 - CONCLUSION: Uncomplicated chest tube placement as above. Blaine Jackson MD Catheter Change 07/27/15 Signed Impressions: Service Date/Time: Monday, July 27, 2015 14:43 - CONCLUSION: Uncomplicated gastrostomy tube exchange as above. Blaine Jackson MD Chest CT 07/11/15 Signed Impressions: Service Date/Time: Saturday, July 11, 2015 09:49 - CONCLUSION: Scattered patchy densities significantly improved from previous study. Tiny anterior right basilar pneumothorax. Right-sided chest tube in good position. Néstor Matamoros MD Head CT 06/18/151902 Signed Impressions: Service Date/Time: June 19:31 - CONCLUSION: Diffuse atrophy unchanged. No acute intracranial findings. Kush Briscoe MD Abdomen/Pelvis CT 06/18/151902 Signed Impressions: Service Date/Time: June 19:36 - CONCLUSION: 1. Chronic nonspecific urinary bladder wall thickening. Bladder collapsed with Valdez catheter in place. 2. Chronic bilateral mid to lower lung zone groundglass opacity. 3. Nonobstructing left renal calculus. 4. Distended rectum. Kush Briscoe MD Objective Remarks pupils reactive, anicteric, trach in place - in t piece decrease breath sounds, no rales regular rhythm- good bowel sounds, PEG in place extremities - no edema both upper extremities- moves spontaneously lower extremities-flexion contractures sacral area - stage 2-3 decubitus valdez catheter in place Procedures 07/26- PEG replacement 07/29- right pigtail catheter placement for new pneumothorax Urinary Catheter: Yes Valdez insert reason: Prolonged Immobilization Date of Insertion: Dec 16, 2015 A/P Problem List: (1) Sepsis due to urinary tract infection ICD Code: A41.9 Status: Resolved (2) Acute respiratory failure ICD Code: J96.00 Status: Resolved (3) Chronic respiratory failure ICD Code: J96.10 Status: Chronic (4) Parkinson disease ICD Code: G20 Status: Chronic (5) UTI (urinary tract infection) ICD Code: N39.0 Status: Acute (6) Encephalopathy ICD Code: G93.40 Status: Resolved Assessment and Plan 55 years old male with tracheostomy and PEG tube alf resident admitted for: S/P Sepsis SHOCK - Recurrent Aspiration- clinically aspirated again 12/14 Leukocytosis 12/14 S/P IV antibotics 12/08. Valdez changed 12/15 - started on flagyl IV and Ceftaz IV 12/14 - solumedrol 50 mg IV q 8- 12/15 -recheck CBC in am, BMP in am chronic respiratory failure- BiPAP at nights Chronic tracheostomy S/P recurrent Right pneumothorax status post pigtail catheter removal Suction secretions Duo nebs 4 times a day and when necessary . On colistin nebs Pulmonary ff- Dr. Ladd ff started antibiotics for aspiration- Started Ceftazidime and IV flagyl 12/14 Bipap at hs . 40% T piece daytime- Pulmonary ff decrease Solumedrol to 50 mg IV q 8 Metabolic Encephalopathy - chronic Parkinson's disease Cognitive disorder/Underlying dementia Depression CT head 06/18/15: - diffuse atrophy unchanged. No acute intracranial findings Continue Sinemet 25/100 3 times a day via PEG, Seroquel 50 mg twice a day, olanzapine 5 mg a night, Klonopin 2 mg every 8 hours, Paxil 20 daily and Neurontin 300 mg twice a day. These medications have been slowly titrated up since admission Continue Roxanol 5 mg every 4 hours when necessary pain and fentanyl patch 50 g every 3 days for pain management. History of orthostasis History of CAD, HLP, Hypertension Malnutrition/protein calorie - moderate Status post PEG Hemorrhoids Gastroesophageal reflux disease Concern for hematemesis 12/05. GI evaluated pt. Gastroccult was negative and hemoglobin has been stable - TF restarted at 10 cc/hr and increase gradually = changed goal rate 50cc/ht - Reglan - Current Colace/senna for bowel regimen. - continue PPI.- Prevacid Nonobstructing left renal calculus Hypokalemia Hypernatremia - resolved Acute urinary retention- - Monitor renal function, I/O's. electrolytes replacement per protocol. - Continue on Free H20 200ml 3 times a day monitor - ff electrolytes- replacement protocol - valdez changed 12/15 Candiduria ESBL positive Klebsiella/Pseudomonas pneumonia MRSA colonization - Multidrug resistant UTI- ESBL 02/19/15 , MRSA + 03/20/15 - Heena glabrata in urine 03/19/15 - Recheck blood, sputum and urine cultures 07/06 no growth - 06/17 - blood cultures 2 - CONS/staph epi - 06/17 - sputum - ESBL positive Klebsiella/Pseudomonas Treated 15 days with tobramycin aerosols twice a day. - 5/12 - urine - C. glabrata/tropicalis - treated with Diflucan Anemia - Monitor CBC Bilateral lower extremity Contractures Stage II DU - Wound care ff - Continue physical therapy - Santyl dressing- consult wound care nurse Prophylaxis - GI PPI - DVT - SCDs/[id number] years old male with tracheostomy and PEG tube alf resident admitted for: 11/25 I updated our Palliative care service- Ms. Meadows in patient's change of status and she will touch base with family I will continue aggressive medical management. DNR code status- No intubation- d/w Palliative care service 11/26- d/w Palliative who spoke with patient's sister I tried calling number listed on chart - was a Rehab facility no other contact number listed Claire Queen MD Dec 17, 2015 15:26 Claire Queen MD Dec 17, 2015 15:26 I tried calling number listed on chart - was a Rehab facility no other contact number listed Claire Queen MD Dec 17, 2015 15:26
--- NOTE | 2015-12-17 17:50 | HHI.IDPN ---
Note Infectious Disease Note Chart reviewed No fevers WBC elevated Clinically noted patient had aspirated tube feeds yet again overnight. CXR on 12/14: negative. If clinical change overnight get repeat CXR, repeat blood, sputum and urine cultures. Continue Ceftaz Change flagyl to oral Add Diflucan Follow clinically Follow cultures. Will follow along with you. to cover for me this weekend. Trina Moss MD Dec 17, 2015 17:50
[2015-12-17] MEDS: OLANZapine 5 MG TAB GT SCH (19:44)
--- NOTE | 2015-12-17 21:34 | HHI.PR ---
Subjective Remarks Awake and lethargic . On a T bar FIO2 40 %. Good output. Off tube feeds . No fever. No response to commands. Objective Vital Signs Date Time Temp Pulse Resp B/P Pulse Ox O2 Delivery O2 Flow Rate FiO2 12/17/15 20:09 97 35 12/17/15 20:00 98.8 86 19 121/86 97 12/17/15 20:00 86 12/17/15 20:00 97 Bi-Pap 35 12/17/15 18:03 97 35 12/17/15 18:00 87 12/17/15 16:00 89 12/17/15 16:00 99 T-Piece 40 12/17/15 16:00 98.3 89 18 141/94 99 12/17/15 14:00 85 12/17/15 12:00 75 12/17/15 12:00 98.3 79 23 139/83 100 12/17/15 12:00 100 T-Piece 40 12/17/15 10:00 86 12/17/15 08:00 92 12/17/15 08:00 96 T-Piece 40 12/17/15 08:00 98.5 92 25 137/95 98 12/17/15 07:46 96 T-piece 40 12/17/15 06:00 88 12/17/15 04:00 93 T-Piece 40 12/17/15 04:00 98.7 85 23 131/90 93 12/17/15 04:00 85 12/17/15 03:58 98 35 12/17/15 02:00 82 12/17/15 01:10 96 35 12/17/15 00:00 83 12/17/15 00:00 99 T-Piece 40 12/17/15 00:00 98.4 83 19 118/80 97 12/16/15 22:00 91 I/O 12/16/15 12/16/15 12/16/15 12/17/15 12/17/15 12/17/15 07:00 15:00 23:00 07:00 15:00 23:00 Intake Total 1006 ml 525 ml 783 ml 1145 ml 1358 ml Output Total 300 ml 300 ml 150 ml 150 ml 150 ml Balance 706 ml 225 ml 633 ml 995 ml 1208 ml IV Total 976 ml 325 ml 583 ml 745 ml 942 ml Tube Feeding 0 ml 0 ml 16 ml Other 30 ml 200 ml 200 ml 400 ml 400 ml Output Urine Total 225 ml 300 ml 150 ml 150 ml 150 ml Gastric Drainage Total 75 ml 0 ml 0 ml # Bowel Movements 0 1 1 1 1 Result Diagram: 12/16/15 0437 12/17/15 0443 Objective Remarks This is a thin white male who is responsive , Lethargic,with a trach tube in place. HEENT: Pupils are equal and reactive to light. Few Throat secretions CHEST:Decreased breath sounds, with Occ basal crackles, and wheezes. CARDIOVASCULAR: S1 and S2 is normal.No murmur. ABDOMEN: Soft, nondistended. BS +. He has a PEG tube in place. EXTREMITIES: No edema.muscle wasting. NEURO: Awake and has weak extremities. Skin is dry. Assessment and Plan Assessment and Plan IMPRESSION 1. Chronic Respiratory failure. 2. Sepsis, Aspiration. 3. Left basal Pneumonia 4. Tracheobronchitis 5. Parkinson's disease 6. Dementia. 7. Severe Deconditioning. Plan : 1. Continue on 40 % T Bar daytime 2. Nebs Bid , duoneb. 3. Start tube feeds at 20 CC 4. prednisone 5 mg daily. 5. Levsin .25 mg tid prn for Secretions 6. Cont Trach toilet and lavage. 8. Bipap at HS12/5 ,FIO2 30 % 9. PT for activity/Postural drainage qid. Darren Kiser MD Dec 17, 2015 21:34
[2015-12-18] VITALS (15 sets, daily range): BP systolic 114–141; BP diastolic 80–99; PULSE 55–80; RESP 14–23; TEMP 97.2–98.8; O2SAT 96–100
[2015-12-18] MEDS: METOCLOPRAMIDE HCL 10 MG/2 ML VIAL IV PUSH SCH ×3 (00:08→17:33)
[2015-12-18] MEDS: cefTAZidime INJ 1,000 MG in SODIUM CHLORIDE 0.9% INJ 100 ML IV SCH ×3 (00:08→17:33)
[2015-12-18] MEDS: INSULIN NovoLIN REGULAR SUPPLEMENTAL SCALE SQ SCH ×4 (00:16→17:33)
[2015-12-18] MEDS: SODIUM CHLOR 0.9% 1000 ML INJ 1,000 ML IV SCH ×3 (00:17→22:38)
[2015-12-18] MEDS: FREE WATER G-TUBE SCH ×6 (04:06→20:00)
[2015-12-18] MEDS: CARBIDOPA/LEVODOPA 25 MG/100 MG TAB GT SCH ×3 (05:34→22:38)
[2015-12-18] MEDS: clonazePAM 1 MG TAB PO SCH ×3 (05:34→22:38)
[2015-12-18] MEDS: HYDROCORTISONE SOD SUCCINATE 100 MG VIAL IV PUSH SCH (05:34)
[2015-12-18 06:10] LABS: AUTOMATED NEUTROPHIL # 9.8 TH/MM3 (1.8-7.7); BASOPHIL % 0.1 % (0.0-2.0); HEMO FLAGS DIFF FINAL; LYMPH % 6.1 % (9.0-44.0); LYMPHOCYTE # 0.7 TH/MM3 (1.0-4.8); MEAN CELL VOLUME 85.4 FL (80.0-100.0); MEAN CORPUSCULAR HEMOGLOBIN 28.4 PG (27.0-34.0); MEAN CORPUSCULAR HGB CONC 33.3 % (32.0-36.0); NEUT % 88.8 % (16.0-70.0); PLATELET COUNT 192 TH/MM3 (150-450); RED BLOOD COUNT 3.75 MIL/MM3 (4.50-5.90); RED CELL DISTRIBUTION WIDTH 16.1 % (11.6-17.2)
[2015-12-18 06:41] LABS: BICARBONATE 24.5 MEQ/L (21.0-32.0); POTASSIUM 3.8 MEQ/L (3.5-5.1)
[2015-12-18] MEDS: MIDODRINE 5 MG TAB G-TUBE SCH ×2 (08:13→22:38)
[2015-12-18] MEDS: FLUCONAZOLE 100 MG TAB PO SCH (08:13)
[2015-12-18] MEDS: POTASSIUM CHLORIDE 10 MEQ CAP G-TUBE SCH ×2 (08:13→22:39)
[2015-12-18] MEDS: GABAPENTIN 300 MG CAP G-TUBE SCH ×2 (08:14→22:39)
[2015-12-18] MEDS: LANSOPRAZOLE SOLUTAB 30 MG TAB NG SCH (08:14)
[2015-12-18] MEDS: predniSONE 5 MG TAB PO SCH (08:14)
[2015-12-18] MEDS: QUEtiapine FUMARATE 25 MG TAB G-TUBE SCH ×2 (08:14→22:38)
[2015-12-18] MEDS: PARoxetine HCL 20 MG TAB G-TUBE SCH (08:14)
[2015-12-18] MEDS: SODIUM CHLORIDE 0.9% FLUSH 5 ML FLUSH IVF SCH ×2 (08:15→22:39)
[2015-12-18] MEDS: CHLORHEXIDINE 0.12% (ORAL KIT) 15 ML CUP MT SCH ×2 (08:15→20:00)
[2015-12-18] MEDS: LACTOBACILLUS ACIDOPHILUS TAB PO SCH ×3 (08:16→17:33)
[2015-12-18] MEDS: ARTIFICIAL TEARS OPTH SOLN 15 ML BTL EACH EYE SCH ×3 (08:16→17:34)
[2015-12-18] MEDS: PANTOPRAZOLE SOD 40 MG DELAYED RELEASE TAB PO SCH (08:16)
--- NOTE | 2015-12-18 09:38 | HHI.PR ---
Subjective Remarks Patient is nonverbal and does not follow commands. Discuss with RN. No change in clinical status. Objective Vitals Vital Signs Date Time Temp Pulse Resp B/P Pulse Ox O2 Delivery O2 Flow Rate FiO2 12/18/15 08:15 96 T-piece 40 12/18/15 06:00 80 12/18/15 04:15 98 35 12/18/15 04:00 98.8 58 16 132/86 98 12/18/15 04:00 98 Bi-Pap 35 12/18/15 04:00 58 12/18/15 02:00 61 12/18/15 00:00 96 Bi-Pap 35 12/18/15 00:00 70 12/18/15 00:00 98.6 70 19 114/80 96 12/17/15 22:00 68 12/17/15 20:09 97 35 12/17/15 20:00 98.8 86 19 121/86 97 12/17/15 20:00 86 12/17/15 20:00 97 Bi-Pap 35 12/17/15 18:03 97 35 12/17/15 18:00 87 12/17/15 16:00 89 12/17/15 16:00 99 T-Piece 40 12/17/15 16:00 98.3 89 18 141/94 99 12/17/15 14:00 85 12/17/15 12:00 75 12/17/15 12:00 98.3 79 23 139/83 100 12/17/15 12:00 100 T-Piece 40 12/17/15 10:00 86 I/O 12/17/15 12/17/15 12/17/15 12/18/15 12/18/15 12/18/15 07:00 15:00 23:00 07:00 15:00 23:00 Intake Total 1145 ml 1358 ml 1210 ml 1175 ml Output Total 150 ml 150 ml 300 ml 550 ml Balance 995 ml 1208 ml 910 ml 625 ml IV Total 745 ml 942 ml 835 ml 775 ml Tube Feeding 0 ml 16 ml 175 ml 200 ml Other 400 ml 400 ml 200 ml 200 ml Output Urine Total 150 ml 150 ml 300 ml 550 ml Gastric Drainage Total 0 ml # Bowel Movements 1 1 0 1 Result Diagram: 12/18/1540 12/18/1540 Objective Remarks GENERAL: Chronically ill-appearing, frail. Trach in place. On the vent. CARDIOVASCULAR: Normal rate and regular rhythm without murmurs, gallops, or rubs. RESPIRATORY: Trachea in place, on vent. Coarse breath sounds bilaterally. GASTROINTESTINAL: Abdomen soft, non-distended. Normal active bowel sounds MUSCULOSKELETAL: Extremities without cyanosis, or edema. NEURO: Nonverbal, noninteractive. Procedures 07/26- PEG replacement 07/29- right pigtail catheter placement for new pneumothorax Date of Insertion: Dec 16, 2015 A/P Problem List: (1) Sepsis due to urinary tract infection ICD Code: A41.9 Status: Resolved (2) Acute respiratory failure ICD Code: J96.00 Status: Resolved (3) Chronic respiratory failure ICD Code: J96.10 Status: Chronic (4) Parkinson disease ICD Code: G20 Status: Chronic (5) UTI (urinary tract infection) ICD Code: N39.0 Status: Acute (6) Encephalopathy ICD Code: G93.40 Status: Resolved Assessment and Plan 55 years old male with tracheostomy and PEG tube [facility] resident admitted for: S/P Sepsis shock - Recurrent Aspiration- clinically aspirated again 12/14 Leukocytosis 12/14 S/P IV antibotics 12/08. [place] changed 12/15 - Infectious disease following, on Flagyl, ceftaz, and Diflucan. - Decrease Solu-Medrol to 25 mg every 8 hours. chronic respiratory failure- BiPAP at nights Chronic tracheostomy S/P recurrent Right pneumothorax status post pigtail catheter removal Suction secretions Duo nebs 4 times a day and when necessary . On colistin nebs Appreciate pulmonology following, Dr. Car Bipap at . 40% T piece daytime per pulmonology decrease Solumedrol to 25 mg IV q 8 Metabolic Encephalopathy - chronic Parkinson's disease Cognitive disorder/Underlying dementia Depression CT head 06/18/15: - diffuse atrophy unchanged. No acute intracranial findings Continue Sinemet 25/100 3 times a day via PEG, Seroquel 50 mg twice a day, olanzapine 5 mg a night, Klonopin 2 mg every 8 hours, Paxil 20 daily and Neurontin 300 mg twice a day. These medications have been slowly titrated up since admission Continue Roxanol 5 mg every 4 hours when necessary pain and fentanyl patch 50 g every 3 days for pain management. Malnutrition/protein calorie - moderate Status post PEG Hemorrhoids Gastroesophageal reflux disease Concern for hematemesis 10/30. GI evaluated pt. Gastroccult was negative and hemoglobin has been stable - TF restarted at 10 cc/hr and increase gradually = changed goal rate 50cc/ht. The 4 the patient has been unable to stay at goal due to recurrent issues with aspiration. - Current Colace/senna for bowel regimen. - continue PPI.- Prevacid Bilateral lower extremity Contractures Stage II DU - Wound care following - Continue physical therapy GI prophylaxis: PPI. Stool softener PRN constipation. DVT PPx: Lovenox I attempted to call the patient daughter Radha for update but no answer. Carlos Hernandez MD Dec 18, 2015 09:38
--- NOTE | 2015-12-18 12:36 | HHI.PR ---
Subjective Remarks Awake and lethargic . On a T bar FIO2 40 %. Answers some questions On tube feeds at 30 CC. . No fever. Objective Vital Signs Date Time Temp Pulse Resp B/P Pulse Ox O2 Delivery O2 Flow Rate FiO2 12/18/15 10:00 61 12/18/15 08:15 96 T-piece 40 12/18/15 08:00 66 12/18/15 08:00 97.2 66 14 132/90 98 12/18/15 08:00 98 T-Piece 40 12/18/15 06:00 80 12/18/15 04:15 98 35 12/18/15 04:00 98.8 58 16 132/86 98 12/18/15 04:00 98 Bi-Pap 35 12/18/15 04:00 58 12/18/15 02:00 61 12/18/15 00:00 96 Bi-Pap 35 12/18/15 00:00 70 12/18/15 00:00 98.6 70 19 114/80 96 12/17/15 22:00 68 12/17/15 20:09 97 35 12/17/15 20:00 98.8 86 19 121/86 97 12/17/15 20:00 86 12/17/15 20:00 97 Bi-Pap 35 12/17/15 18:03 97 35 12/17/15 18:00 87 12/17/15 16:00 89 12/17/15 16:00 99 T-Piece 40 12/17/15 16:00 98.3 89 18 141/94 99 12/17/15 14:00 85 I/O 12/17/15 12/17/15 12/17/15 12/18/15 12/18/15 12/18/15 07:00 15:00 23:00 07:00 15:00 23:00 Intake Total 1145 ml 1358 ml 1210 ml 1175 ml Output Total 150 ml 150 ml 300 ml 550 ml Balance 995 ml 1208 ml 910 ml 625 ml IV Total 745 ml 942 ml 835 ml 775 ml Tube Feeding 0 ml 16 ml 175 ml 200 ml Other 400 ml 400 ml 200 ml 200 ml Output Urine Total 150 ml 150 ml 300 ml 550 ml Gastric Drainage Total 0 ml # Bowel Movements 1 1 0 1 Result Diagram: 12/18/1540 12/18/15539 Objective Remarks This is a thin white male who is responsive , Lethargic,with a trach tube in place. HEENT: Pupils are equal and reactive to light. Few Throat secretions CHEST:Decreased breath sounds, with Occ basal crackles, and wheezes. CARDIOVASCULAR: S1 and S2 is normal.No murmur. ABDOMEN: Soft, nondistended. BS +. He has a PEG tube in place. EXTREMITIES: No edema.muscle wasting. NEURO: Awake and has weak extremities. Skin is dry. Assessment and Plan Assessment and Plan IMPRESSION 1. Chronic Respiratory failure. 2. Sepsis, Aspiration. 3. Left basal Pneumonia 4. Tracheobronchitis 5. Parkinson's disease 6. Dementia. 7. Severe Deconditioning. Plan : 1. Continue on 40 % T Bar daytime 2. Nebs Bid , duoneb. 3. Cont tube feeds at 35 CC 4. prednisone 5 mg daily. 5. Levsin .25 mg tid prn for Secretions 6. Cont Trach toilet and lavage. 8. Bipap at HS12/5 ,FIO2 30 % 9. PT for activity/Postural drainage qid. Darren Kiser MD Dec 18, 2015 12:36
--- NOTE | 2015-12-18 12:47 | HHI.IDPN ---
Subjective Subjective Remarks ID COVERAGE Notes reviewed D/W RN Temps ok BP good On Fortaz since 12/14 WBC better Last CXR clear Remains on T-piece, seems stable Per RN, family does not want any aggressive intervention, no pressors Valdez changed 12/15 UC with yeast Antibiotics Fortaz Lines Peripheral IV with no e/o infection Past Medical History reviewed Allergies: Coded Allergies: *MDRO Multi-Drug Resistant Organism (Verified Adverse Reaction, Unknown, 12/01/15) ESBL E. coli (urine) - 02/19/2015; ESBL K. 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 Vital Signs Date Time Temp Pulse Resp B/P Pulse Ox O2 Delivery O2 Flow Rate FiO2 12/18/15 10:00 61 12/18/15 08:15 96 T-piece 40 12/18/15 08:00 66 12/18/15 08:00 97.2 66 14 132/90 98 12/18/15 08:00 98 T-Piece 40 12/18/15 06:00 80 12/18/15 04:15 98 35 12/18/15 04:00 98.8 58 16 132/86 98 12/18/15 04:00 98 Bi-Pap 35 12/18/15 04:00 58 12/18/15 02:00 61 12/18/15 00:00 96 Bi-Pap 35 12/18/15 00:00 70 12/18/15 00:00 98.6 70 19 114/80 96 12/17/15 22:00 68 12/17/15 20:09 97 35 12/17/15 20:00 98.8 86 19 121/86 97 12/17/15 20:00 86 12/17/15 20:00 97 Bi-Pap 35 12/17/15 18:03 97 35 12/17/15 18:00 87 12/17/15 16:00 89 12/17/15 16:00 99 T-Piece 40 12/17/15 16:00 98.3 89 18 141/94 99 12/17/15 14:00 85 12/17/15 12/17/15 12/18/15 14:59 22:59 06:59 Intake Total 1358 ml 1210 ml 1175 ml Output Total 150 ml 300 ml 550 ml Balance 1208 ml 910 ml 625 ml IV Total 942 ml 835 ml 775 ml Tube Feeding 16 ml 175 ml 200 ml Other 400 ml 200 ml 200 ml Output Urine Total 150 ml 300 ml 550 ml Gastric Drainage Total 0 ml # Bowel Movements 1 0 1 . Laboratory Tests Test 12/18/15 05:40 White Blood Count 11.0 TH/MM3 Red Blood Count 3.75 MIL/MM3 Hemoglobin 10.7 GM/DL Hematocrit 32.0 % Mean Corpuscular Volume 85.4 FL Mean Corpuscular Hemoglobin 28.4 PG Mean Corpuscular Hemoglobin 33.3 % Concent Red Cell Distribution Width 16.1 % Platelet Count 192 TH/MM3 Mean Platelet Volume 9.7 FL Neutrophils (%) (Auto) 88.8 % Lymphocytes (%) (Auto) 6.1 % Monocytes (%) (Auto) 5.0 % Eosinophils (%) (Auto) 0.0 % Basophils (%) (Auto) 0.1 % Neutrophils # (Auto) 9.8 TH/MM3 Lymphocytes # (Auto) 0.7 TH/MM3 Monocytes # (Auto) 0.5 TH/MM3 Eosinophils # (Auto) 0.0 TH/MM3 Basophils # (Auto) 0.0 TH/MM3 CBC Comment DIFF FINAL Differential Comment Laboratory Tests Test 12/17/15 12/18/15 04:43 05:40 Sodium Level 139 MEQ/L 139 MEQ/L Potassium Level 3.7 MEQ/L 3.8 MEQ/L Chloride Level 103 MEQ/L 106 MEQ/L Carbon Dioxide Level 25.4 MEQ/L 24.5 MEQ/L Anion Gap 11 MEQ/L 9 MEQ/L Blood Urea Nitrogen 17 MG/DL 16 MG/DL Creatinine 0.44 MG/DL 0.44 MG/DL Estimat Glomerular Filtration 202 ML/MIN 202 ML/MIN Rate Random Glucose 137 MG/DL 169 MG/DL Calcium Level 8.7 MG/DL 8.3 MG/DL Microbiology Date/Time Procedure Status Source Growth 12/16/15 14:00 Urine Culture - Final Complete Urine Catheterized Urine Heena Tropicalis Imaging Abdomen X-Ray 12/07/15 0600 Signed Impressions: Service Date/Time: Monday, December 07, 2015 03:40 - CONCLUSION: No dilated loops of small or large bowel. Tai Jaquez MD Chest X-Ray 12/07/15 0000 Signed Impressions: Service Date/Time: Monday, December 07, 2015 03:34 - CONCLUSION: Right lung is clear. Slight improvement of interstitial infiltrates left mid and lower lung. Tai Jaquez MD Abdomen X-Ray 12/06/15 0000 Signed Impressions: Service Date/Time: Sunday, December 06, 2015 08:05 - CONCLUSION: No acute disease. Erlin Barajas MD Abdomen Ultrasound 12/06/15 0000 Signed Impressions: Service Date/Time: Sunday, December 06, 2015 17:42 - CONCLUSION: 1. The gallbladder is unremarkable with no evidence of cholelithiasis. 2. Simple cyst in the left kidney. 3. Mild pyelocaliectasis in the right kidney. Salazar Thurman MD Chest X-Ray 12/04/15 0600 Signed Impressions: Service Date/Time: Friday, December 04, 2015 03:50 - CONCLUSION: Interstitial densities in the right lung. Néstor Matamoros MD Chest X-Ray 11/28/15 0000 Signed Impressions: Service Date/Time: Saturday, November 28, 2015 00:21 - CONCLUSION: No acute cardiopulmonary disease. Eugene Schmid MD Abdomen X-Ray 11/26/15 0000 Signed Impressions: Service Date/Time: November 12:34 - CONCLUSION: 1. Nonobstructive bowel gas pattern. 2. Stable position of gastrostomy tube. Multiple surgical screws secure the proximal left femur. 3. No obvious pneumoperitoneum on the single projection provided. Scott Goode MD Upper Extremity Ultrasound 10/13/15 0000 Signed Impressions: Service Date/Time: Tuesday, October 13, 2015 09:51 - CONCLUSION: 1. No evidence of deep venous thrombosis. John Anderson MD Renal Ultrasound 10/07/15 0000 Signed Impressions: Service Date/Time: Wednesday, October 07, 2015 18:29 - CONCLUSION: 1. No acute findings. 3.6 cm left renal cyst. Valdez catheter in bladder. Amaury Ellsworth MD Tunnelled Chest Tube Removal 08/05/15 1100 Signed Impressions: Service Date/Time: Wednesday, August 05, 2015 11:00 - CONCLUSION: Uncomplicated chest tube removal. Blaine Jackson MD Chest Tube Change 07/31/15 0000 Signed Impressions: Service Date/Time: Friday, July 31, 2015 14:34 - CONCLUSION: Uncomplicated reposition of previously placed chest tube as above. Blaine Jackson MD Chest Tube Insertion 07/30/15 0000 Signed Impressions: Service Date/Time: July 14:50 - CONCLUSION: Uncomplicated chest tube placement as above. Blaine Jackson MD Catheter Change 07/27/15 0000 Signed Impressions: Service Date/Time: Monday, July 27, 2015 14:43 - CONCLUSION: Uncomplicated gastrostomy tube exchange as above. Blaine Jackson MD Chest CT 07/11/15 0000 Signed Impressions: Service Date/Time: Saturday, July 11, 2015 09:49 - CONCLUSION: Scattered patchy densities significantly improved from previous study. Tiny anterior right basilar pneumothorax. Right-sided chest tube in good position. Néstor Matamoros MD Head CT 06/18/151902 Signed Impressions: Service Date/Time: June 19:31 - CONCLUSION: Diffuse atrophy unchanged. No acute intracranial findings. Kush Briscoe MD Abdomen/Pelvis CT 06/18/151902 Signed Impressions: Service Date/Time: June 19:36 - CONCLUSION: 1. Chronic nonspecific urinary bladder wall thickening. Bladder collapsed with Valdez catheter in place. 2. Chronic bilateral mid to lower lung zone groundglass opacity. 3. Nonobstructing left renal calculus. 4. Distended rectum. Kush Briscoe MD Physical Exam GENERAL: not SOB, on T-piece, no interaction SKIN: Cool and moist. No generalized rash. HEENT: [place] conjunctivae, no icterus, moist mucosa. NECK: Trach site looks ok. Neck is supple RESPIRATORY: Coarse BS razia, with few rhonchi GASTROINTESTINAL: Abdomen soft, not distended. No guarding. PEG site looks okay. MUSCULOSKELETAL: No cyanosis No pedal edema. Contracted all 4 extremities. NEUROLOGICAL: Eyes open, Extremities contracted Peripheral IV line sites with no evidence of infection. ; Valdez in place, urine looks clear Assessment & Plan Remarks IMPRESSION Sepsis/SIRS related to aspiration PNA?HCAP. Preceding events seem to be vomiting , ?aspiration, CXR now with some densisties on R - C/S with PSAE and Kleb ESBL+ - S/P Rx History of PSAE ESBL cath associated UTI. S/P Rx Leukocytosis, reactive due to current problem Previous C diff (+), no treated, improved - has had freq BM reported - will repeat if persistent and liquid Chronic respiratory failure on trach PSAE and ESBL Kleb in sputum in recent past. Chronic encephalopathy with underlying diagnosis of advanced dementia as well as advanced Parkinson's disease. Status post trach Status post gastrostomy tube with no evidence of infection. Stage II sacral decubitus ulcer present on admission. Intermittent vomiting Leukocytosis, decreasing Recurrent aspiration Recommendations On Fortaz Repeat UA, valdez changed 12/15 Monitor progress If clinically worsen, repeat BC and UC NOt really improving, and consider hospice D/W RN D/W Bhavna Savage MD Dec 18, 2015 12:47
[2015-12-18] MEDS: COLLAGENASE OINT 30 GM TUBE TOP SCH (13:18)
[2015-12-18] MEDS ORDERED: HYDROCORTISONE SOD SUCCINATE 100 MG VIAL IV PUSH SCH (14:00)
[2015-12-18 14:16] LABS: BACTERIA, URINE OCC /hpf; BLOOD, URINE TRACE (NEG); CALCIUM OXALATE CRYSTALS,URINE OCC /hpf; GLUCOSE,URINE NEG (NEG); KETONE, URINE NEG (NEG); MUCUS URINE FEW /lpf (OCC); NITRITE,URINE NEG (NEG); SQUAMOUS EPITHELIAL CELL URINE <1 /hpf (0-5); TRANSITIONAL EPI CELLS, URINE <1 /hpf; URINE COLOR YELLOW (YELLW/STRAW)
[2015-12-18] MEDS: OLANZapine 5 MG TAB GT SCH (22:38)
[2015-12-19] VITALS (15 sets, daily range): BP systolic 108–145; BP diastolic 78–98; PULSE 59–88; RESP 16–26; TEMP 97.2–98.5; O2SAT 95–99
[2015-12-19] MEDS: cefTAZidime INJ 1,000 MG in SODIUM CHLORIDE 0.9% INJ 100 ML IV SCH ×3 (01:11→17:41)
[2015-12-19] MEDS: METOCLOPRAMIDE HCL 10 MG/2 ML VIAL IV PUSH SCH ×3 (01:12→17:41)
[2015-12-19] MEDS: FREE WATER G-TUBE SCH ×6 (03:02→20:01)
[2015-12-19] MEDS: CARBIDOPA/LEVODOPA 25 MG/100 MG TAB GT SCH ×3 (05:29→21:28)
[2015-12-19] MEDS: clonazePAM 1 MG TAB PO SCH ×3 (05:30→21:28)
[2015-12-19] MEDS: SODIUM CHLOR 0.9% 1000 ML INJ 1,000 ML IV SCH ×2 (05:30→17:41)
[2015-12-19] MEDS: INSULIN NovoLIN REGULAR SUPPLEMENTAL SCALE SQ SCH ×4 (05:30→17:44)
[2015-12-19] MEDS: CHLORHEXIDINE 0.12% (ORAL KIT) 15 ML CUP MT SCH ×2 (08:00→20:01)
[2015-12-19] MEDS: ARTIFICIAL TEARS OPTH SOLN 15 ML BTL EACH EYE SCH ×3 (08:51→17:41)
[2015-12-19] MEDS: FLUCONAZOLE 100 MG TAB PO SCH (08:52)
[2015-12-19] MEDS: SODIUM CHLORIDE 0.9% FLUSH 5 ML FLUSH IVF SCH ×2 (08:52→20:01)
[2015-12-19] MEDS: predniSONE 5 MG TAB PO SCH (08:52)
[2015-12-19] MEDS: POTASSIUM CHLORIDE 10 MEQ CAP G-TUBE SCH ×2 (08:52→20:01)
[2015-12-19] MEDS: COLLAGENASE OINT 30 GM TUBE TOP SCH (08:52)
[2015-12-19] MEDS: LACTOBACILLUS ACIDOPHILUS TAB PO SCH ×3 (08:52→17:41)
[2015-12-19] MEDS: GABAPENTIN 300 MG CAP G-TUBE SCH ×2 (08:52→20:01)
[2015-12-19] MEDS: LANSOPRAZOLE SOLUTAB 30 MG TAB NG SCH (08:52)
[2015-12-19] MEDS: MIDODRINE 5 MG TAB G-TUBE SCH ×2 (08:53→20:01)
[2015-12-19] MEDS: PARoxetine HCL 20 MG TAB G-TUBE SCH (08:53)
[2015-12-19] MEDS: QUEtiapine FUMARATE 25 MG TAB G-TUBE SCH ×2 (08:53→20:01)
[2015-12-19] MEDS: PANTOPRAZOLE SOD 40 MG DELAYED RELEASE TAB PO SCH (08:53)
--- NOTE | 2015-12-19 09:18 | HHI.PR ---
Subjective Remarks Patient is nonverbal and does not follow commands. Discuss with RN. No change in clinical status. He cannot tolerate tube feeding higher than 30 cc/hr Objective Vitals Vital Signs Date Time Temp Pulse Resp B/P Pulse Ox O2 Delivery O2 Flow Rate FiO2 12/19/15 08:00 98 Bi-Pap 35 T-Piece 12/19/15 06:00 66 12/19/15 04:13 98 35 12/19/15 04:00 66 12/19/15 04:00 98.3 66 22 108/88 97 12/19/15 04:00 97 Bi-Pap 35 T-Piece 12/19/15 02:00 88 12/19/15 00:22 95 35 12/19/15 00:00 95 Bi-Pap 35 T-Piece 12/19/15 00:00 81 12/19/15 00:00 98.0 81 25 123/88 95 12/18/15 22:00 72 12/18/15 20:24 98 35 12/18/15 20:00 100 Bi-Pap 35 T-Piece 12/18/15 20:00 98.3 72 23 127/85 100 12/18/15 20:00 72 12/18/15 18:00 63 12/18/15 16:00 98 T-Piece 40 12/18/15 16:00 68 12/18/15 16:00 97.5 68 20 141/99 98 12/18/15 14:00 73 12/18/15 12:00 98.0 55 16 123/85 100 12/18/15 12:00 100 T-Piece 40 12/18/15 12:00 55 12/18/15 10:00 61 I/O 12/18/15 12/18/15 12/18/15 12/19/15 12/19/15 12/19/15 07:00 15:00 23:00 07:00 15:00 23:00 Intake Total 1175 ml 1685 ml 1257 ml 1295 ml Output Total 550 ml 350 ml 300 ml 1300 ml Balance 625 ml 1335 ml 957 ml -5 ml IV Total 775 ml 991 ml 831 ml 746 ml Tube Feeding 200 ml 294 ml 226 ml 149 ml Other 200 ml 400 ml 200 ml 400 ml Output Urine Total 550 ml 350 ml 300 ml 1300 ml # Bowel Movements 1 1 1 1 Result Diagram: 12/18/1540 12/18/15 0540 Objective Remarks GENERAL: Chronically ill-appearing, frail. Trach in place. CARDIOVASCULAR: Normal rate and regular rhythm without murmurs, gallops, or rubs. RESPIRATORY: Trach in place, Tbar. Coarse breath sounds bilaterally. GASTROINTESTINAL: Abdomen soft, non-distended. Normal active bowel sounds MUSCULOSKELETAL: Extremities without cyanosis, or edema. NEURO: Nonverbal, noninteractive. Procedures 07/26- PEG replacement 07/29- right pigtail catheter placement for new pneumothorax Date of Insertion: Dec 16, 2015 A/P Problem List: (1) Sepsis due to urinary tract infection ICD Code: A41.9 Status: Resolved (2) Acute respiratory failure ICD Code: J96.00 Status: Resolved (3) Chronic respiratory failure ICD Code: J96.10 Status: Chronic (4) Parkinson disease ICD Code: G20 Status: Chronic (5) UTI (urinary tract infection) ICD Code: N39.0 Status: Acute (6) Encephalopathy ICD Code: G93.40 Status: Resolved Assessment and Plan 55 years old male with tracheostomy and PEG tube prison resident admitted for: S/P Sepsis shock - Recurrent Aspiration- clinically aspirated again 12/14 Leukocytosis 12/14 S/P IV antibotics 12/08. Putnam changed 12/15 - Infectious disease following, on Flagyl, ceftaz, and Diflucan. - Solu-Medrol to 25 mg every 8 hours. chronic respiratory failure- BiPAP at nights Chronic tracheostomy S/P recurrent Right pneumothorax status post pigtail catheter removal Suction secretions Duo nebs 4 times a day and when necessary . On colistin nebs Appreciate pulmonology following, Dr. Josep Daniels at . 40% T piece daytime per pulmonology Solumedrol to 25 mg IV q 8 Metabolic Encephalopathy - chronic Parkinson's disease Cognitive disorder/Underlying dementia Depression CT head 06/18/15: - diffuse atrophy unchanged. No acute intracranial findings Continue Sinemet 25/100 3 times a day via PEG, Seroquel 50 mg twice a day, olanzapine 5 mg a night, Klonopin 2 mg every 8 hours, Paxil 20 daily and Neurontin 300 mg twice a day. These medications have been slowly titrated up since admission Continue Roxanol 5 mg every 4 hours when necessary pain and fentanyl patch 50 g every 3 days for pain management. Malnutrition/protein calorie - moderate Status post PEG Hemorrhoids Gastroesophageal reflux disease Concern for hematemesis 12/05. GI evaluated pt. Gastroccult was negative and hemoglobin has been stable - TF restarted at 10 cc/hr and increase gradually = changed goal rate 50cc/ht. The patient has been unable to stay at goal due to recurrent issues with aspiration. - Current Colace/senna for bowel regimen. - continue PPI.- Prevacid Bilateral lower extremity Contractures Stage II DU - Wound care following - Continue physical therapy GI prophylaxis: PPI. Stool softener PRN constipation. DVT PPx: Lovenox I spoke to the patient's daughter Radha at length. She is in [place] and is not able to come up here during the week. She has a lot of questions about healthcare proxy forms. She seems to better understand his declining course and poor prognosis. I will have palliative care contact her to clarify things with her. Carlos Hernandez MD Dec 19, 2015 09:18
[2015-12-19 10:08] LABS: HEMATOCRIT 28.6 % (39.0-51.0); MEAN CELL VOLUME 85.4 FL (80.0-100.0); MEAN CORPUSCULAR HEMOGLOBIN 27.8 PG (27.0-34.0); MEAN CORPUSCULAR HGB CONC 32.5 % (32.0-36.0); PLATELET COUNT 131 TH/MM3 (150-450); RED BLOOD COUNT 3.35 MIL/MM3 (4.50-5.90); RED CELL DISTRIBUTION WIDTH 15.8 % (11.6-17.2); REVIEW FLAG FINAL
[2015-12-19 10:31] LABS: BICARBONATE 27.9 MEQ/L (21.0-32.0); POTASSIUM 3.4 MEQ/L (3.5-5.1)
[2015-12-19] MEDS: OLANZapine 5 MG TAB GT SCH (20:01)
[2015-12-20] VITALS (16 sets, daily range): BP systolic 114–146; BP diastolic 77–99; PULSE 66–90; RESP 19–29; TEMP 97.6–99; O2SAT 96–100
[2015-12-20] MEDS: cefTAZidime INJ 1,000 MG in SODIUM CHLORIDE 0.9% INJ 100 ML IV SCH ×3 (01:00→16:42)
[2015-12-20] MEDS: SODIUM CHLOR 0.9% 1000 ML INJ 1,000 ML IV SCH ×3 (02:00→20:41)
[2015-12-20] MEDS: METOCLOPRAMIDE HCL 10 MG/2 ML VIAL IV PUSH SCH ×3 (02:00→16:43)
[2015-12-20] MEDS: FREE WATER G-TUBE SCH ×6 (04:00→20:40)
[2015-12-20] MEDS: clonazePAM 1 MG TAB PO SCH ×3 (05:27→20:40)
[2015-12-20] MEDS: CARBIDOPA/LEVODOPA 25 MG/100 MG TAB GT SCH ×3 (05:27→20:40)
[2015-12-20] MEDS: INSULIN NovoLIN REGULAR SUPPLEMENTAL SCALE SQ SCH ×4 (05:27→18:00)
[2015-12-20 06:21] LABS: HEMATOCRIT 30.2 % (39.0-51.0); MEAN CELL VOLUME 84.8 FL (80.0-100.0); MEAN CORPUSCULAR HEMOGLOBIN 27.7 PG (27.0-34.0); MEAN CORPUSCULAR HGB CONC 32.6 % (32.0-36.0); PLATELET COUNT 168 TH/MM3 (150-450); RED BLOOD COUNT 3.57 MIL/MM3 (4.50-5.90); RED CELL DISTRIBUTION WIDTH 15.7 % (11.6-17.2); REVIEW FLAG FINAL; WHITE BLOOD COUNT 9.9 TH/MM3 (4.0-11.0)
[2015-12-20 07:02] LABS: BICARBONATE 30.2 MEQ/L (21.0-32.0); POTASSIUM 3.6 MEQ/L (3.5-5.1)
--- NOTE | 2015-12-20 09:41 | HHI.PR ---
Subjective Remarks No change in clinical status today. Discussed with RN. Patient is nonverbal, noninteractive. Objective Vitals Vital Signs Date Time Temp Pulse Resp B/P Pulse Ox O2 Delivery O2 Flow Rate FiO2 12/20/15 09:26 97 T-piece 6.00 40 12/20/15 06:00 88 12/20/15 04:00 96 T-Piece 40 12/20/15 04:00 98.4 81 29 130/87 96 12/20/15 04:00 81 12/20/15 03:56 96 35 12/20/15 02:00 66 12/20/15 00:42 96 35 12/20/15 00:00 97.6 71 22 114/77 96 12/20/15 00:00 71 12/20/15 00:00 96 T-Piece 40 12/19/15 22:43 96 35 12/19/15 22:00 76 12/19/15 20:00 79 12/19/15 20:00 96 T-Piece 40 12/19/15 20:00 97.9 79 26 127/81 96 12/19/15 18:00 83 12/19/15 16:00 98.5 76 21 145/98 99 12/19/15 16:00 99 Bi-Pap 40 T-Piece 12/19/15 16:00 76 12/19/15 14:00 61 12/19/15 12:00 59 12/19/15 12:00 97 T-Piece 40 12/19/15 12:00 97.9 65 16 115/78 97 12/19/15 10:00 82 I/O 12/19/15 12/19/15 12/19/15 12/20/15 12/20/15 12/20/15 07:00 15:00 23:00 07:00 15:00 23:00 Intake Total 1295 ml 1240 ml 1179 ml 1184 ml Output Total 1300 ml 2125 ml 1400 ml 2400 ml Balance -5 ml -885 ml -221 ml -1216 ml IV Total 746 ml 575 ml 779 ml 741 ml Tube Feeding 149 ml 265 ml 200 ml 243 ml Other 400 ml 400 ml 200 ml 200 ml Output Urine Total 1300 ml 2125 ml 1400 ml 2400 ml # Bowel Movements 1 1 Result Diagram: 12/20/15 0600 11/13/16 0600 Objective Remarks GENERAL: Chronically ill-appearing, frail. Trach in place. CARDIOVASCULAR: Normal rate and regular rhythm without murmurs, gallops, or rubs. RESPIRATORY: Trach in place, Tbar. Coarse breath sounds bilaterally. GASTROINTESTINAL: Abdomen soft, non-distended. Normal active bowel sounds MUSCULOSKELETAL: Extremities without cyanosis, or edema. NEURO: Nonverbal, noninteractive. Procedures 07/26- PEG replacement 07/29- right pigtail catheter placement for new pneumothorax Date of Insertion: Dec 16, 2015 A/P Problem List: (1) Sepsis due to urinary tract infection ICD Code: A41.9 Status: Resolved (2) Acute respiratory failure ICD Code: J96.00 Status: Resolved (3) Chronic respiratory failure ICD Code: J96.10 Status: Chronic (4) Parkinson disease ICD Code: G20 Status: Chronic (5) UTI (urinary tract infection) ICD Code: N39.0 Status: Acute (6) Encephalopathy ICD Code: G93.40 Status: Resolved Assessment and Plan 55 years old male with tracheostomy and PEG tube assisted resident admitted for: S/P Sepsis shock - Recurrent Aspiration- clinically aspirated again 12/14 Leukocytosis 12/14 S/P IV antibotics 12/08. Putnam changed 12/15 - Infectious disease following, on Flagyl, ceftaz, and Diflucan. - Solu-Medrol to 25 mg every 8 hours. chronic respiratory failure- BiPAP at nights Chronic tracheostomy S/P recurrent Right pneumothorax status post pigtail catheter removal Suction secretions Duo nebs 4 times a day and when necessary . On colistin nebs Appreciate pulmonology following, Dr. Car Bipap at . 40% T piece daytime per pulmonology Solumedrol to 25 mg IV q 8 Metabolic Encephalopathy - chronic Parkinson's disease Cognitive disorder/Underlying dementia Depression CT head 06/18/15: - diffuse atrophy unchanged. No acute intracranial findings Continue Sinemet 25/100 3 times a day via PEG, Seroquel 50 mg twice a day, olanzapine 5 mg a night, Klonopin 2 mg every 8 hours, Paxil 20 daily and Neurontin 300 mg twice a day. These medications have been slowly titrated up since admission Continue Roxanol 5 mg every 4 hours when necessary pain and fentanyl patch 50 g every 3 days for pain management. Malnutrition/protein calorie - moderate Status post PEG Hemorrhoids Gastroesophageal reflux disease Concern for hematemesis 10/30. GI evaluated pt. Gastroccult was negative and hemoglobin has been stable - TF restarted at 10 cc/hr and increase gradually = changed goal rate 50cc/ht. The patient has been unable to stay at goal due to recurrent issues with aspiration. - Current Colace/senna for bowel regimen. - continue PPI.- Prevacid Bilateral lower extremity Contractures Stage II DU - Wound care following - Continue physical therapy GI prophylaxis: PPI. Stool softener PRN constipation. DVT PPx: Lovenox I spoke to the patient's daughter Radha at length on 12/19/15. She is in [place] and is not able to come up here during the week. She has a lot of questions about healthcare proxy forms. She seems to better understand his declining course and poor prognosis. I will have palliative care contact her to clarify things with her. Carlos Hernandez MD Dec 20, 2015 09:41
[2015-12-20] MEDS: predniSONE 5 MG TAB PO SCH (10:40)
[2015-12-20] MEDS: LACTOBACILLUS ACIDOPHILUS TAB PO SCH ×3 (10:40→16:43)
[2015-12-20] MEDS: FLUCONAZOLE 100 MG TAB PO SCH (10:40)
[2015-12-20] MEDS: GABAPENTIN 300 MG CAP G-TUBE SCH ×2 (10:40→20:40)
[2015-12-20] MEDS: PANTOPRAZOLE SOD 40 MG DELAYED RELEASE TAB PO SCH (10:40)
[2015-12-20] MEDS: PARoxetine HCL 20 MG TAB G-TUBE SCH (10:40)
[2015-12-20] MEDS: CHLORHEXIDINE 0.12% (ORAL KIT) 15 ML CUP MT SCH ×2 (10:41→20:41)
[2015-12-20] MEDS: POTASSIUM CHLORIDE 10 MEQ CAP G-TUBE SCH ×2 (10:41→20:40)
[2015-12-20] MEDS: ARTIFICIAL TEARS OPTH SOLN 15 ML BTL EACH EYE SCH ×3 (10:41→16:42)
[2015-12-20] MEDS: SODIUM CHLORIDE 0.9% FLUSH 5 ML FLUSH IVF SCH ×2 (10:42→20:41)
[2015-12-20] MEDS: LANSOPRAZOLE SOLUTAB 30 MG TAB NG SCH (10:42)
[2015-12-20] MEDS: COLLAGENASE OINT 30 GM TUBE TOP SCH (10:42)
[2015-12-20] MEDS: QUEtiapine FUMARATE 25 MG TAB G-TUBE SCH ×2 (10:42→20:40)
[2015-12-20] MEDS: MIDODRINE 5 MG TAB G-TUBE SCH ×2 (10:42→20:40)
[2015-12-20] MEDS: OLANZapine 5 MG TAB GT SCH (20:40)
[2015-12-21] VITALS (10 sets, daily range): BP systolic 96–142; BP diastolic 64–94; PULSE 68–96; RESP 14–20; TEMP 98–98.6; O2SAT 96–100
[2015-12-21] MEDS: cefTAZidime INJ 1,000 MG in SODIUM CHLORIDE 0.9% INJ 100 ML IV SCH (01:38)
[2015-12-21] MEDS: METOCLOPRAMIDE HCL 10 MG/2 ML VIAL IV PUSH SCH ×3 (01:38→19:57)
[2015-12-21] MEDS: FREE WATER G-TUBE SCH ×5 (01:38→19:59)
[2015-12-21] MEDS: INSULIN NovoLIN REGULAR SUPPLEMENTAL SCALE SQ SCH ×4 (04:38→18:00)
[2015-12-21] MEDS: CARBIDOPA/LEVODOPA 25 MG/100 MG TAB GT SCH ×3 (04:38→19:57)
[2015-12-21] MEDS: clonazePAM 1 MG TAB PO SCH ×3 (04:38→19:58)
--- NOTE | 2015-12-21 07:45 | HHI.PR ---
Addendum to Inpatient Note Addendum Reason: Additional Documentation Additional Information Chart review documentation No fevers since Diflucan added Urine with C.tropicalis. Valdez changed on Dec. Recs DC Ceftaz Continue Diflucan for now as patient clinically responded. Valdez changed. Assess ongoing need for valdez on daily basis. Consider condom cath or diapers if no sacral decubs etc. Will sign off please call back if any change in clinical condition or questions. Trina Moss MD Dec 21, 2015 07:45
[2015-12-21] MEDS: SODIUM CHLORIDE 0.9% FLUSH 5 ML FLUSH IVF SCH ×2 (09:00→19:58)
[2015-12-21] MEDS: POTASSIUM CHLORIDE 10 MEQ CAP G-TUBE SCH ×2 (09:06→19:57)
[2015-12-21] MEDS: LANSOPRAZOLE SOLUTAB 30 MG TAB NG SCH (09:06)
[2015-12-21] MEDS: QUEtiapine FUMARATE 25 MG TAB G-TUBE SCH ×2 (09:06→19:58)
[2015-12-21] MEDS: GABAPENTIN 300 MG CAP G-TUBE SCH ×2 (09:06→19:57)
[2015-12-21] MEDS: PANTOPRAZOLE SOD 40 MG DELAYED RELEASE TAB PO SCH (09:06)
[2015-12-21] MEDS: LACTOBACILLUS ACIDOPHILUS TAB PO SCH ×3 (09:06→19:57)
[2015-12-21] MEDS: predniSONE 5 MG TAB PO SCH (09:07)
[2015-12-21] MEDS: PARoxetine HCL 20 MG TAB G-TUBE SCH (09:07)
[2015-12-21] MEDS: FLUCONAZOLE 100 MG TAB PO SCH (09:07)
[2015-12-21] MEDS: MIDODRINE 5 MG TAB G-TUBE SCH ×2 (09:08→19:58)
[2015-12-21] MEDS: ACETAMINOPHEN/HYDROcodone 325 MG/5 MG TAB PO PRN (09:08)
[2015-12-21] MEDS: ARTIFICIAL TEARS OPTH SOLN 15 ML BTL EACH EYE SCH ×3 (09:09→18:00)
[2015-12-21] MEDS: COLLAGENASE OINT 30 GM TUBE TOP SCH (09:09)
[2015-12-21] MEDS: CHLORHEXIDINE 0.12% (ORAL KIT) 15 ML CUP MT SCH ×2 (09:11→19:59)
[2015-12-21] MEDS: SODIUM CHLOR 0.9% 1000 ML INJ 1,000 ML IV SCH ×2 (09:11→12:24)
--- NOTE | 2015-12-21 11:27 | HHI.PR ---
Subjective Remarks No change in clinical status today. Patient is nonverbal, noninteractive. Objective Vitals Vital Signs Date Time Temp Pulse Resp B/P Pulse Ox O2 Delivery O2 Flow Rate FiO2 12/21/15 08:30 98 T-piece 6.00 40 12/21/15 06:00 80 12/21/15 04:00 72 12/21/15 04:00 96 T-Piece 40 12/21/15 04:00 98.4 72 19 130/93 96 12/21/15 02:00 68 12/21/15 00:00 98.6 73 20 133/92 97 12/21/15 00:00 73 12/21/15 00:00 97 T-Piece 40 12/20/15 22:00 85 12/20/15 20:21 100 T-piece 40 12/20/15 20:00 98.0 70 23 146/98 100 12/20/15 20:00 70 12/20/15 20:00 100 T-Piece 40 12/20/15 18:00 76 12/20/15 16:00 100 T-Piece 40 12/20/15 16:00 69 12/20/15 16:00 99.0 69 19 124/88 100 12/20/15 14:00 75 12/20/15 12:00 98 T-Piece 40 12/20/15 12:00 82 12/20/15 12:00 98.6 82 25 132/93 98 I/O 12/20/15 12/20/15 12/20/15 12/21/15 12/21/15 12/21/15 07:00 15:00 23:00 07:00 15:00 23:00 Intake Total 1184 ml 1433 ml 814 ml 1451 ml Output Total 2400 ml 2400 ml 2300 ml 1950 ml Balance -1216 ml -967 ml -1486 ml -499 ml IV Total 741 ml 800 ml 405 ml 805 ml Tube Feeding 243 ml 233 ml 209 ml 246 ml Other 200 ml 400 ml 200 ml 400 ml Output Urine Total 2400 ml 2400 ml 2300 ml 1950 ml # Bowel Movements 1 Result Diagram: 12/20/15 0600 12/20/15 0600 Objective Remarks GENERAL: Chronically ill-appearing, frail. Trach in place. CARDIOVASCULAR: Normal rate and regular rhythm without murmurs, gallops, or rubs. RESPIRATORY: Trach in place, Tbar. Coarse breath sounds bilaterally. GASTROINTESTINAL: Abdomen soft, non-distended. Normal active bowel sounds MUSCULOSKELETAL: Extremities without cyanosis, or edema. NEURO: Nonverbal, noninteractive. Procedures 07/26- PEG replacement 07/29- right pigtail catheter placement for new pneumothorax Date of Insertion: Dec 16, 2015 A/P Problem List: (1) Sepsis due to urinary tract infection ICD Code: A41.9 Status: Resolved (2) Acute respiratory failure ICD Code: J96.00 Status: Resolved (3) Chronic respiratory failure ICD Code: J96.10 Status: Chronic (4) Parkinson disease ICD Code: G20 Status: Chronic (5) UTI (urinary tract infection) ICD Code: N39.0 Status: Acute (6) Encephalopathy ICD Code: G93.40 Status: Resolved Assessment and Plan 55 years old male with tracheostomy and PEG tube [facility] resident admitted for: S/P Sepsis shock - Recurrent Aspiration- clinically aspirated again 12/14 Leukocytosis 12/14 S/P IV antibotics 12/08. Putnam changed 12/15 - Infectious disease signed off , ceftaz discontinued. On Diflucan. - Decrease Solu-Medrol to 25 mg BID. chronic respiratory failure- BiPAP at nights Chronic tracheostomy S/P recurrent Right pneumothorax status post pigtail catheter removal Suction secretions Duo nebs 4 times a day and when necessary . On colistin nebs Appreciate pulmonology following, Dr. Car Bipap at hs . 40% T piece daytime per pulmonology Solumedrol as above Metabolic Encephalopathy - chronic Parkinson's disease Cognitive disorder/Underlying dementia Depression CT head 06/18/15: - diffuse atrophy unchanged. No acute intracranial findings Continue Sinemet 25/100 3 times a day via PEG, Seroquel 50 mg twice a day, olanzapine 5 mg a night, Klonopin 2 mg every 8 hours, Paxil 20 daily and Neurontin 300 mg twice a day. These medications have been slowly titrated up since admission Continue Roxanol 5 mg every 4 hours when necessary pain and fentanyl patch 50 g every 3 days for pain management. Malnutrition/protein calorie - moderate Status post PEG Hemorrhoids Gastroesophageal reflux disease Concern for hematemesis 12/05. GI evaluated pt. Gastroccult was negative and hemoglobin has been stable - TF restarted at 10 cc/hr and increase gradually, goal rate 50cc/ht. The patient has been unable to stay at goal due to recurrent issues with aspiration. - Current Colace/senna for bowel regimen. - continue PPI.- Prevacid Bilateral lower extremity Contractures Stage II DU - Wound care following - Continue physical therapy GI prophylaxis: PPI. Stool softener PRN constipation. DVT PPx: Lovenox I spoke to the patient's daughter Radha at length on 12/19/15. She is in [place] and is not able to come up here during the week. She has a lot of questions about healthcare proxy forms. She seems to better understand his declining course and poor prognosis. I will ask palliative care to touch base with her. The patient is appropriate for hospice if goals are comfort oriented. Carlos Hernandez MD Dec 21, 2015 11:27
--- NOTE | 2015-12-21 12:15 | HHI.PR ---
Subjective Remarks Awake and lethargic . On a T bar FIO2 40 %. No change overall. On tube feeds at 30 CC. . No fever. Objective Vital Signs Date Time Temp Pulse Resp B/P Pulse Ox O2 Delivery O2 Flow Rate FiO2 12/21/15 08:30 98 T-piece 6.00 40 12/21/15 06:00 80 12/21/15 04:00 72 12/21/15 04:00 96 T-Piece 40 12/21/15 04:00 98.4 72 19 130/93 96 12/21/15 02:00 68 12/21/15 00:00 98.6 73 20 133/92 97 12/21/15 00:00 73 12/21/15 00:00 97 T-Piece 40 12/20/15 22:00 85 12/20/15 20:21 100 T-piece 40 12/20/15 20:00 98.0 70 23 146/98 100 12/20/15 20:00 70 12/20/15 20:00 100 T-Piece 40 12/20/15 18:00 76 12/20/15 16:00 100 T-Piece 40 12/20/15 16:00 69 12/20/15 16:00 99.0 69 19 124/88 100 12/20/15 14:00 75 I/O 12/20/15 12/20/15 12/20/15 12/21/15 12/21/15 12/21/15 07:00 15:00 23:00 07:00 15:00 23:00 Intake Total 1184 ml 1433 ml 814 ml 1451 ml Output Total 2400 ml 2400 ml 2300 ml 1950 ml Balance -1216 ml -967 ml -1486 ml -499 ml IV Total 741 ml 800 ml 405 ml 805 ml Tube Feeding 243 ml 233 ml 209 ml 246 ml Other 200 ml 400 ml 200 ml 400 ml Output Urine Total 2400 ml 2400 ml 2300 ml 1950 ml # Bowel Movements 1 Result Diagram: 12/20/15 0600 12/20/15 0600 Objective Remarks This is a thin white male who is responsive , Lethargic,with a trach tube in place. HEENT: Pupils are equal and reactive to light. Few trach secretions CHEST:Decreased breath sounds, with Occ basal crackles, and bilateral wheezes. CARDIOVASCULAR: S1 and S2 is normal.No murmur. ABDOMEN: Soft, nondistended. BS +. He has a PEG tube in place. EXTREMITIES: No edema.muscle wasting. NEURO: Awake and has weak extremities. Skin is dry. Assessment and Plan Assessment and Plan IMPRESSION 1. Chronic Respiratory failure. 2. Sepsis, Aspiration. 3. Left basal Pneumonia 4. Tracheobronchitis 5. Parkinson's disease 6. Dementia. 7. Severe Deconditioning. Plan : 1. Continue on 40 % T Bar daytime 2. Nebs Bid , duoneb. 3. Cont tube feeds at 35 CC 4. prednisone 5 mg daily. 5. Levsin .25 mg tid prn for Secretions 6. Cont Trach toilet and lavage. 8. Cont Bipap at HS12/5 ,FIO2 30 % 9. PT for activity/Postural drainage qid. 10. Antibiotics per ID. Darren Kiser MD Dec 21, 2015 12:15
--- NOTE | 2015-12-21 15:25 | HHI.HCPN ---
Reason for visit a. To assist with evaluation and management of symptoms including: pain, malnutrition, dyspnea. b. To assist medical decision maker(s) with: better understanding of current medical conditions; weighing benefits/burdens of medical treatment options; making medical treatment decisions. . (ALOK JONES) Subjective/Interval History Patient seen and examined in ICU. Discussed with Dr. Hernandez and complex case manager, Capri. Patient remains in ICU on oxygen via t-piece. BP 96/64. Afebrile. No new labs today. Eyes closed, appears to be sleeping. Continues to have trouble tolerating tube feeding above 30cc/hr. Nursing pain level scores are "0" PRN Hydrocodone 5/325mg x 1 dose on 12/21/15. Patient non-verbal, does not appear painful during my visit. . Family/friend interactions Left message for daughterRadha to provide update. Awaiting return call. . (ALOK JONES) Advance Directives Living Will: Never completed Health Care Surrogate: Copy in medical record Durable Power of Transcription: Never completed (ALOK JONES) Advance Directive Specifics Date completed: Patient visited Scott Mack, Transcription in March and again in November 2014. The patient was encouraged to complete Advance directive documents but never did them. Dr. Pickard personally called Mr. Mack ([phone]) to check for advance directives. Health Care Surrogate(s): The patient completed a health care surrogate document dated 09/02/14 desigating his friend Bola Nolasco as surrogate. Mr. Nolasco was not aware of this and has declined serving in that capacity. The patient has an adult daughter -- Radha Foreman who is willing to serve as health care proxy decision maker. Patient's mother, Teresa is aware. Significant change in goals: NO CODE - No cardiac resuscitation, shock, ACLS or mech vent, No Pressors. NO EGD. Left message for daughterRadha in follow up from Dr. Hernandez conversation with her. . (ALOK JONES) Objective Vital Signs Date Time Temp Pulse Resp B/P Pulse Ox O2 Delivery O2 Flow Rate FiO2 12/21/15 12:00 98.0 71 14 96/64 99 12/21/15 08:30 98 T-piece 6.00 40 12/21/15 08:00 98.1 96 20 129/88 97 12/21/15 06:00 80 12/21/15 04:00 72 12/21/15 04:00 96 T-Piece 40 12/21/15 04:00 98.4 72 19 130/93 96 12/21/15 02:00 68 12/21/15 00:00 98.6 73 20 133/92 97 12/21/15 00:00 73 12/21/15 00:00 97 T-Piece 40 12/20/15 22:00 85 12/20/15 20:21 100 T-piece 40 12/20/15 20:00 98.0 70 23 146/98 100 12/20/15 20:00 70 12/20/15 20:00 100 T-Piece 40 12/20/15 18:00 76 12/20/15 16:00 100 T-Piece 40 12/20/15 16:00 69 12/20/15 16:00 99.0 69 19 124/88 100 Intake & Output 12/21/15 12/21/15 07:00 19:00 Intake Total 2265 ml 1390 ml Output Total 2850 ml 1600 ml Balance -585 ml -210 ml IV Total 1210 ml 697 ml Tube Feeding 455 ml 293 ml Other 600 ml 400 ml Output Urine Total 2850 ml 1600 ml # Bowel Movements 0 Physical Exam CONSTITUTIONAL/GENERAL: This is a thin, pale, contracted, chronically ill appearing male on mech vent to trach. Unresponsive. TUBES/LINES/DRAINS: Trach, valdez cath, PEG tube, scd's SKIN: No jaundice, rashes, or lesions. Sacral wound, not visualized today. NECK: Tracheostomy to t-piece. CARDIOVASCULAR: Regular rate and rhythm without murmurs, gallops, or rubs. No JVD. Peripheral pulses symmetric. RESPIRATORY/CHEST: Scattered course breath sounds. Breath sounds equal bilaterally and diminished at bases. GASTROINTESTINAL: Abdomen soft, non-tender, nondistended. GENITOURINARY: Without palpable bladder distension. catheter in place. MUSCULOSKELETAL: Contractures noted. No mottling. NEUROLOGICAL: Eyes closed. Unresponsive. No spontaneous movements seen. PSYCHIATRIC: Eyes closed. . (ALOK JONES-C) Diagnostic Tests Laboratory Laboratory Tests Test 12/19/15 12/20/15 09:36 06:00 White Blood Count 9.0 TH/MM3 9.9 TH/MM3 (4.0-11.0) (4.0-11.0) Red Blood Count 3.35 MIL/MM3 3.57 MIL/MM3 (4.50-5.90) (4.50-5.90) Hemoglobin 9.3 GM/DL 9.9 GM/DL (13.0-17.0) (13.0-17.0) Hematocrit 28.6 % 30.2 % (39.0-51.0) (39.0-51.0) Mean Corpuscular Volume 85.4 FL 84.8 FL (80.0-100.0) (80.0-100.0) Mean Corpuscular Hemoglobin 27.8 PG 27.7 PG (27.0-34.0) (27.0-34.0) Mean Corpuscular Hemoglobin 32.5 % 32.6 % Concent (32.0-36.0) (32.0-36.0) Red Cell Distribution Width 15.8 % 15.7 % (11.6-17.2) (11.6-17.2) Platelet Count 131 TH/MM3 168 TH/MM3 (150-450) (150-450) Mean Platelet Volume 9.4 FL 9.4 FL (7.0-11.0) (7.0-11.0) Sodium Level 142 MEQ/L 144 MEQ/L (136-145) (136-145) Potassium Level 3.4 MEQ/L 3.6 MEQ/L (3.5-5.1) (3.5-5.1) Chloride Level 109 MEQ/L 108 MEQ/L (98-107) (98-107) Carbon Dioxide Level 27.9 MEQ/L 30.2 MEQ/L (21.0-32.0) (21.0-32.0) Anion Gap 5 MEQ/L (5-15) 6 MEQ/L (5-15) Blood Urea Nitrogen 8 MG/DL (7-18) 4 MG/DL (7-18) Creatinine 0.30 MG/DL 0.33 MG/DL (0.60-1.30) (0.60-1.30) Estimat Glomerular Filtration 314 ML/MIN 281 ML/MIN Rate (>89) (>89) Random Glucose 124 MG/DL 124 MG/DL (74-106) (74-106) Calcium Level 8.0 MG/DL 8.5 MG/DL (8.5-10.1) (8.5-10.1) (ALOK JONES SR. MEDIA MANAGER-) Result Diagram: 12/20/15 0600 12/20/15 0600 Imaging Last Impressions Chest X-Ray 12/15/15 0000 Signed Impressions: Service Date/Time: Tuesday, December 15, 2015 13:38 - CONCLUSION: The lungs are grossly clear. Ilir Agosto MD Abdomen X-Ray 12/07/15 0600 Signed Impressions: Service Date/Time: Monday, December 07, 2015 03:40 - CONCLUSION: No dilated loops of small or large bowel. Tai Jaquez MD Abdomen Ultrasound 12/06/15 0000 Signed Impressions: Service Date/Time: Sunday, December 06, 2015 17:42 - CONCLUSION: 1. The gallbladder is unremarkable with no evidence of cholelithiasis. 2. Simple cyst in the left kidney. 3. Mild pyelocaliectasis in the right kidney. Salazar Thurman MD Upper Extremity Ultrasound 10/13/15 0000 Signed Impressions: Service Date/Time: Tuesday, October 13, 2015 09:51 - CONCLUSION: 1. No evidence of deep venous thrombosis. John Anderson MD Renal Ultrasound 10/07/15 0000 Signed Impressions: Service Date/Time: Wednesday, October 07, 2015 18:29 - CONCLUSION: 1. No acute findings. 3.6 cm left renal cyst. Valdez catheter in bladder. Amaury Ellsworth MD Tunnelled Chest Tube Removal 08/05/15 1100 Signed Impressions: Service Date/Time: Wednesday, August 05, 2015 11:00 - CONCLUSION: Uncomplicated chest tube removal. Blaine Jackson MD Chest Tube Change 07/31/15 0000 Signed Impressions: Service Date/Time: Friday, July 31, 2015 14:34 - CONCLUSION: Uncomplicated reposition of previously placed chest tube as above. Blaine Jackson MD Chest Tube Insertion 07/30/15 0000 Signed Impressions: Service Date/Time: July 14:50 - CONCLUSION: Uncomplicated chest tube placement as above. Blaine Jackson MD Catheter Change 07/27/15 0000 Signed Impressions: Service Date/Time: Monday, July 27, 2015 14:43 - CONCLUSION: Uncomplicated gastrostomy tube exchange as above. Blaine Jackson MD Chest CT 07/11/15 0000 Signed Impressions: Service Date/Time: Saturday, July 11, 2015 09:49 - CONCLUSION: Scattered patchy densities significantly improved from previous study. Tiny anterior right basilar pneumothorax. Right-sided chest tube in good position. Néstor Matamoros MD Head CT 06/18/151902 Signed Impressions: Service Date/Time: June 19:31 - CONCLUSION: Diffuse atrophy unchanged. No acute intracranial findings. Kush Briscoe MD Abdomen/Pelvis CT 06/18/151902 Signed Impressions: Service Date/Time: June 19:36 - CONCLUSION: 1. Chronic nonspecific urinary bladder wall thickening. Bladder collapsed with Valdez catheter in place. 2. Chronic bilateral mid to lower lung zone groundglass opacity. 3. Nonobstructing left renal calculus. 4. Distended rectum. Kush Briscoe MD . Procedures * Mechanical ventilation * Chest tube placement on right 07/07/15 * Chest tube removal 07/17/15 . (ALOK JONES SR. MEDIA MANAGER-C) Assessment and Plan Disease Oriented Problem List: (1) Acute respiratory failure Comment: 10/13/15 - Halicat for hypotension and tube feeding coming from [facility]. [facility] . (2) Chronic respiratory failure (3) Pneumonia Comment: recurrent aspiration. . (4) UTI (urinary tract infection) Comment: . (5) Parkinson disease (6) Moderate malnutrition Symptom Scale: (1) Pain 0-10 Scale: Unable to quantify (Pt unable to quantify, nurse reports level 1) Comment: Sources of pain might include wound, prolonged bedbound status, contractures, restraints, valdez, vascular access catheters. Appears comfortable on current regimen. ,l (2) Dyspnea 0-10 Scale: Unable to quantify Comment: On t-piece. . (3) Malnutrition 0-10 Scale: Unable to quantify Comment: Tube feeding on hold due to recent GI bleed. . (4) Encephalopathy 0-10 Scale: Unable to quantify Comment: Remains unresponsive. Pertinent Non-Medical Issues Psychosocial: snf assisted resident. 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 Severe dementia. Daughter, mother, and brother are involved. Spiritual: [employer]. Has been a member for the [employer] and members have provided both community support and spiritual support in the past. Legal: No advance directives. Daughter (Radha Foreman) is legal proxy and lives 4 hours away. She can be quite difficult to contact by phone. Ethical issues impacting care: None. . Important Contacts * Radha Foreman (daughter and proxy) [phone] * Teresa Perea (mother -- lives in [place]) [phone] . Prognosis Patient has end stage Parkinson's with end stage dementia. [facility] a [facility] and has required multiple hospitalizations for sepsis. He is a chronic trach/PEG tube patient with contractures and skin breakdown. Should family continue to want aggressive care, he will continue to go back and forth from facility to hospital until such time that we are no longer able to overcome the sepsis. Patient is hospice eligible whenever family is ready to transition to "comfort measures only." . Code Status: No Code (No cardiac resuscitation, shock, ACLS or mech vent. ) Plan * Decision making: Patient is incapacitated and will not regain capacity. There is no designated health care surrogate. Daughter, Radha Foreman, is legal proxy under [place] statutes but can be hard to contact at times. * NO CODE - No cardiac resuscitation, shock, ACLS or mech vent, No Pressors. NO EGD for now. * 12/21/15 - Left message for Radha hunter to provide medical update and to follow up her conversation with Dr. Hernandez. Awaiting return call. * Pain: Sources of pain are unclear as patient in non communicative, but would include prolonged bedbound status; tubes and lines; contractures; wound; etc. Current regimen appears to adequate . No further recommendations at this time. * Dyspnea: Dyspnea due to aspiration pneumonia. Has previously been challenging to get off vent. * Malnutrition: Tolerating tube feeds at 30cc/hr, increased aspiration noted when above 30cc/hr per nursing staff, albumin remains low. * Palliative care will continue to follow. . . (ALOK JONES) Attestation To help prompt me to consider important information that might be impacting today's encounter and assessment, information from prior notes written by myself or my colleagues may have been "brought forward" into today's note. My signature on this note, however, is an attestation that I personally performed the exam, history, and/or decision-making noted today, and, unless otherwise indicated, the interactions with patient, family, and staff as well as the review of records all occurred today. I also attest that the listed assessment and stated plan reflect my best clinical judgment today based on the combination of historical information, prior notes, and today's exam/ interactions. When time spent is documented, it refers only to time spent today by the signer, or if indicated, combined time spent today by collaborating physician/nurse practitioner. . (ALOK JONES) Collaborating MD Comments Patient was discussed with SR. MEDIA MANAGER. Agreeable to assessment and plan. (Reggie Brannon MD) ALOK JONES Dec 21, 2015 15:25 Reggie Brannon MD Dec 30, 2015 16:13
[2015-12-21] MEDS: OLANZapine 5 MG TAB GT SCH (19:58)
[2015-12-22] VITALS (14 sets, daily range): BP systolic 100–138; BP diastolic 66–94; PULSE 71–113; RESP 19–23; TEMP 97.5–98.8; O2SAT 91–100
[2015-12-22] MEDS: METOCLOPRAMIDE HCL 10 MG/2 ML VIAL IV PUSH SCH ×3 (03:39→19:45)
[2015-12-22] MEDS: SODIUM CHLOR 0.9% 1000 ML INJ 1,000 ML IV SCH ×3 (03:39→23:10)
[2015-12-22] MEDS: FREE WATER G-TUBE SCH ×7 (03:39→23:09)
[2015-12-22] MEDS: clonazePAM 1 MG TAB PO SCH ×3 (05:44→19:47)
[2015-12-22] MEDS: INSULIN NovoLIN REGULAR SUPPLEMENTAL SCALE SQ SCH ×5 (05:44→23:10)
[2015-12-22] MEDS: CARBIDOPA/LEVODOPA 25 MG/100 MG TAB GT SCH ×3 (05:44→19:48)
[2015-12-22] MEDS: SODIUM CHLORIDE 0.9% FLUSH 5 ML FLUSH IVF SCH ×2 (09:10→19:50)
[2015-12-22] MEDS: POTASSIUM CHLORIDE 10 MEQ CAP G-TUBE SCH ×2 (09:13→19:47)
[2015-12-22] MEDS: ACETAMINOPHEN 650 MG/20.3 ML UDC TUBE PRN (09:13)
[2015-12-22] MEDS: PARoxetine HCL 20 MG TAB G-TUBE SCH (09:13)
[2015-12-22] MEDS: PANTOPRAZOLE SOD 40 MG DELAYED RELEASE TAB PO SCH (09:13)
[2015-12-22] MEDS: GABAPENTIN 300 MG CAP G-TUBE SCH ×2 (09:13→19:46)
[2015-12-22] MEDS: predniSONE 5 MG TAB PO SCH (09:14)
[2015-12-22] MEDS: MIDODRINE 5 MG TAB G-TUBE SCH ×2 (09:14→19:49)
[2015-12-22] MEDS: LACTOBACILLUS ACIDOPHILUS TAB PO SCH ×3 (09:14→19:46)
[2015-12-22] MEDS: QUEtiapine FUMARATE 25 MG TAB G-TUBE SCH ×2 (09:14→19:50)
[2015-12-22] MEDS: LANSOPRAZOLE SOLUTAB 30 MG TAB NG SCH (09:14)
[2015-12-22] MEDS: COLLAGENASE OINT 30 GM TUBE TOP SCH (09:15)
[2015-12-22] MEDS: ARTIFICIAL TEARS OPTH SOLN 15 ML BTL EACH EYE SCH ×3 (09:16→19:45)
[2015-12-22] MEDS: CHLORHEXIDINE 0.12% (ORAL KIT) 15 ML CUP MT SCH ×2 (09:38→19:51)
--- NOTE | 2015-12-22 09:55 | HHI.PR ---
Subjective Remarks No change in clinical status. Patient is nonverbal, noninteractive. Objective Vitals Vital Signs Date Time Temp Pulse Resp B/P Pulse Ox O2 Delivery O2 Flow Rate FiO2 12/22/15 09:05 96 T-piece 6.00 40 12/22/15 06:00 82 12/22/15 04:00 T-Piece 40 12/22/15 04:00 88 12/22/15 04:00 97.5 88 19 126/93 100 12/22/15 02:00 82 12/22/15 00:00 71 12/22/15 00:00 98.4 71 22 110/80 100 12/22/15 00:00 T-Piece 40 12/21/15 22:00 75 12/21/15 20:00 73 12/21/15 20:00 98.2 73 20 142/94 100 12/21/15 20:00 T-Piece 40 12/21/15 19:26 100 T-piece 40 12/21/15 16:00 T-Piece 40 12/21/15 12:00 98.0 71 14 96/64 99 I/O 12/21/15 12/21/15 12/21/15 12/22/15 12/22/15 12/22/15 07:00 15:00 23:00 07:00 15:00 23:00 Intake Total 1451 ml 1390 ml 1453 ml 1588 ml Output Total 1950 ml 1600 ml 2100 ml 1250 ml Balance -499 ml -210 ml -647 ml 338 ml IV Total 805 ml 697 ml 1053 ml 664 ml Tube Feeding 246 ml 293 ml 524 ml Other 400 ml 400 ml 400 ml 400 ml Output Urine Total 1950 ml 1600 ml 2100 ml 1250 ml # Bowel Movements 1 0 0 Result Diagram: 12/20/15 0612/20/15 06 Objective Remarks GENERAL: Chronically ill-appearing, frail. Trach in place. CARDIOVASCULAR: Normal rate and regular rhythm without murmurs, gallops, or rubs. RESPIRATORY: Trach in place, Tbar. Coarse breath sounds bilaterally. GASTROINTESTINAL: Abdomen soft, non-distended. Normal active bowel sounds MUSCULOSKELETAL: Extremities without cyanosis, or edema. NEURO: Nonverbal, noninteractive. Procedures 07/26- PEG replacement 07/29- right pigtail catheter placement for new pneumothorax Date of Insertion: Dec 16, 2015 A/P Problem List: (1) Sepsis due to urinary tract infection ICD Code: A41.9 Status: Resolved (2) Acute respiratory failure ICD Code: J96.00 Status: Resolved (3) Chronic respiratory failure ICD Code: J96.10 Status: Chronic (4) Parkinson disease ICD Code: G20 Status: Chronic (5) UTI (urinary tract infection) ICD Code: N39.0 Status: Acute (6) Encephalopathy ICD Code: G93.40 Status: Resolved Assessment and Plan 55 years old male with tracheostomy and PEG tube [facility] admitted for: S/P Sepsis shock - Recurrent Aspiration- clinically aspirated again 12/14 Leukocytosis 12/14 S/P IV antibotics 12/08. Putnam changed 12/15 - Infectious disease signed off , ceftaz discontinued. On Diflucan. - Decrease Solu-Medrol to 25 mg BID. chronic respiratory failure- BiPAP at nights Chronic tracheostomy S/P recurrent Right pneumothorax status post pigtail catheter removal Suction secretions Duo nebs 4 times a day and when necessary . On colistin nebs Appreciate pulmonology following, Dr. Josep Daniels at . 40% T piece daytime per pulmonology Solumedrol as above Metabolic Encephalopathy - chronic Parkinson's disease Cognitive disorder/Underlying dementia Depression CT head 06/18/15: - diffuse atrophy unchanged. No acute intracranial findings Continue Sinemet 25/100 3 times a day via PEG, Seroquel 50 mg twice a day, olanzapine 5 mg a night, Klonopin 2 mg every 8 hours, Paxil 20 daily and Neurontin 300 mg twice a day. These medications have been slowly titrated up since admission Continue Roxanol 5 mg every 4 hours when necessary pain and fentanyl patch 50 g every 3 days for pain management. Malnutrition/protein calorie - moderate Status post PEG Hemorrhoids Gastroesophageal reflux disease Concern for hematemesis 12/05. GI evaluated pt. Gastroccult was negative and hemoglobin has been stable - TF restarted at 10 cc/hr and increase gradually, goal rate 50cc/ht. The patient has been unable to stay at goal due to recurrent issues with aspiration. - Current Colace/senna for bowel regimen. - continue PPI.- Prevacid Bilateral lower extremity Contractures Stage II DU - Wound care following - Continue physical therapy GI prophylaxis: PPI. Stool softener PRN constipation. DVT PPx: Lovenox I spoke to the patient's daughter Radha at length on 12/19/15. She is in [place] and is not able to come up here during the week. She has a lot of questions about healthcare proxy forms. She seems to better understand his declining course and poor prognosis. I discussed with palliative care, they are trying to get in contact with her. The patient is appropriate for hospice if goals are comfort oriented. Carlos Hernandez MD Dec 22, 2015 09:55
[2015-12-22] MEDS: HYOSCYAMINE SOLN 0.125 MG/ML 15 ML BTL PO PRN ×2 (15:11→19:53)
--- NOTE | 2015-12-22 18:37 | HHI.PR ---
Subjective Remarks Seen Chronic Resp failure. Awake and lethargic . On a T bar FIO2 40 %. On tube feeds at 35 CC. . No fever. Objective Vital Signs Date Time Temp Pulse Resp B/P Pulse Ox O2 Delivery O2 Flow Rate FiO2 12/22/15 16:00 96 12/22/15 16:00 T-Piece 40 12/22/15 16:00 98.8 96 22 100/66 95 12/22/15 14:00 103 12/22/15 12:00 98 12/22/15 12:00 98.4 98 20 107/73 96 12/22/15 10:00 113 12/22/15 09:05 96 T-piece 6.00 40 12/22/15 08:00 T-Piece 40 12/22/15 08:00 89 12/22/15 08:00 98.4 89 22 138/94 98 12/22/15 06:00 82 12/22/15 04:00 T-Piece 40 12/22/15 04:00 88 12/22/15 04:00 97.5 88 19 126/93 100 12/22/15 02:00 82 12/22/15 00:00 71 12/22/15 00:00 98.4 71 22 110/80 100 12/22/15 00:00 T-Piece 40 12/21/15 22:00 75 12/21/15 20:00 73 12/21/15 20:00 98.2 73 20 142/94 100 12/21/15 20:00 T-Piece 40 12/21/15 19:26 100 T-piece 40 I/O 12/21/15 12/21/15 12/21/15 12/22/15 12/22/15 12/22/15 07:00 15:00 23:00 07:00 15:00 23:00 Intake Total 1451 ml 1390 ml 1453 ml 1588 ml 1600 ml Output Total 1950 ml 1600 ml 2100 ml 1250 ml 1250 ml Balance -499 ml -210 ml -647 ml 338 ml 350 ml IV Total 805 ml 697 ml 1053 ml 664 ml 976 ml Tube Feeding 246 ml 293 ml 524 ml 224 ml Other 400 ml 400 ml 400 ml 400 ml 400 ml Output Urine Total 1950 ml 1600 ml 2100 ml 1250 ml 1250 ml # Bowel Movements 1 0 0 Result Diagram: 12/20/15 0600 12/20/15 0600 Objective Remarks This is a thin white male who is responsive , Lethargic,with a trach tube in place. HEENT: Pupils are equal and reactive to light. Few trach secretions CHEST:Decreased breath sounds, with Occ basal crackles. CARDIOVASCULAR: S1 and S2 is normal.No murmur. ABDOMEN: Soft, nondistended. BS +. He has a PEG tube in place. EXTREMITIES: No edema.muscle wasting. NEURO: Awake and has weak extremities. Skin is dry. Assessment and Plan Assessment and Plan IMPRESSION 1. Chronic Respiratory failure. 2. Sepsis, Aspiration. 3. Left basal Pneumonia 4. Tracheobronchitis 5. Parkinson's disease 6. Dementia. 7. Severe Deconditioning. Plan : 1. Continue on 40 % T Bar daytime 2. Nebs Bid , duoneb. 3. Cont tube feeds at 35 CC 4. prednisone 2.5 mg daily. 5. Levsin .25 mg tid prn for Secretions 6. Cont Trach toilet and lavage. 8. Cont Bipap at HS12/5 ,FIO2 30 % 9. PT for activity/Postural drainage qid. 10. Antibiotics per ID. Darren Kiser MD Dec 22, 2015 18:37
[2015-12-22] MEDS: OLANZapine 5 MG TAB GT SCH (19:49)
[2015-12-23] VITALS (14 sets, daily range): BP systolic 93–138; BP diastolic 61–94; PULSE 67–89; RESP 17–32; TEMP 98.1–99.2; O2SAT 97–99
[2015-12-23] MEDS: METOCLOPRAMIDE HCL 10 MG/2 ML VIAL IV PUSH SCH ×3 (01:09→16:54)
[2015-12-23] MEDS: FREE WATER G-TUBE SCH ×5 (04:00→20:00)
[2015-12-23] MEDS: clonazePAM 1 MG TAB PO SCH ×3 (06:00→22:36)
[2015-12-23] MEDS: INSULIN NovoLIN REGULAR SUPPLEMENTAL SCALE SQ SCH ×3 (06:00→17:01)
[2015-12-23] MEDS: CARBIDOPA/LEVODOPA 25 MG/100 MG TAB GT SCH ×3 (06:01→22:36)
[2015-12-23] MEDS: CHLORHEXIDINE 0.12% (ORAL KIT) 15 ML CUP MT SCH ×2 (08:00→21:04)
[2015-12-23] MEDS: MIDODRINE 5 MG TAB G-TUBE SCH ×2 (08:01→21:05)
[2015-12-23] MEDS: PANTOPRAZOLE SOD 40 MG DELAYED RELEASE TAB PO SCH (08:01)
[2015-12-23] MEDS: GABAPENTIN 300 MG CAP G-TUBE SCH ×2 (08:01→21:05)
[2015-12-23] MEDS: PARoxetine HCL 20 MG TAB G-TUBE SCH (08:01)
[2015-12-23] MEDS: LACTOBACILLUS ACIDOPHILUS TAB PO SCH ×3 (08:01→16:54)
[2015-12-23] MEDS: QUEtiapine FUMARATE 25 MG TAB G-TUBE SCH ×2 (08:02→21:05)
[2015-12-23] MEDS: LANSOPRAZOLE SOLUTAB 30 MG TAB NG SCH (08:02)
[2015-12-23] MEDS: predniSONE 5 MG TAB PO SCH (08:02)
[2015-12-23] MEDS: POTASSIUM CHLORIDE 10 MEQ CAP G-TUBE SCH ×2 (08:03→21:05)
[2015-12-23] MEDS: ARTIFICIAL TEARS OPTH SOLN 15 ML BTL EACH EYE SCH ×3 (08:03→16:55)
[2015-12-23] MEDS: SODIUM CHLORIDE 0.9% FLUSH 5 ML FLUSH IVF SCH ×2 (08:03→21:03)
[2015-12-23] MEDS: COLLAGENASE OINT 30 GM TUBE TOP SCH (09:00)
[2015-12-23] MEDS: SODIUM CHLOR 0.9% 1000 ML INJ 1,000 ML IV SCH ×2 (10:58→21:04)
--- NOTE | 2015-12-23 15:19 | HHI.PR ---
Subjective Remarks Patient seen and evaluated today and follow for encephalopathy. Chart reviewed. Discussed with LIFE COACH as well as palliative care team. No new events Objective Vitals Vital Signs Date Time Temp Pulse Resp B/P Pulse Ox O2 Delivery O2 Flow Rate FiO2 12/23/15 14:00 89 12/23/15 12:00 88 12/23/15 12:00 98.5 88 25 106/74 98 12/23/15 12:00 T-Piece 40 12/23/15 10:00 83 12/23/15 08:25 98 T-piece 6.00 40 12/23/15 08:00 85 12/23/15 08:00 98.2 85 17 126/84 99 12/23/15 08:00 T-Piece 40 12/23/15 06:00 81 12/23/15 04:00 98.1 67 21 121/64 99 12/23/15 04:00 T-Piece 40 12/23/15 04:00 67 12/23/15 02:00 70 12/23/15 00:00 75 12/23/15 00:00 T-Piece 40 12/23/15 00:00 98.5 75 20 93/61 99 12/22/15 22:00 83 12/22/15 21:15 96 T-piece 50 12/22/15 20:00 98.2 88 23 112/71 91 12/22/15 20:00 T-Piece 40 12/22/15 20:00 88 12/22/15 18:00 96 12/22/15 16:00 96 12/22/15 16:00 T-Piece 40 12/22/15 16:00 98.8 96 22 100/66 95 I/O 12/22/15 12/22/15 12/22/15 12/23/15 12/23/15 12/23/15 07:00 15:00 23:00 07:00 15:00 23:00 Intake Total 1588 ml 3937 ml 1078 ml 1566 ml Output Total 1250 ml 2500 ml 800 ml 900 ml Balance 338 ml 1437 ml 278 ml 666 ml IV Total 664 ml 2697 ml 680 ml 850 ml Tube Feeding 524 ml 440 ml 198 ml 256 ml Other 400 ml 800 ml 200 ml 460 ml Output Urine Total 1250 ml 2500 ml 800 ml 900 ml # Bowel Movements 0 0 0 Result Diagram: 12/20/1559912/20/15599 Objective Remarks GENERAL: This is a frail unresponsive male in no distress with tracheostomy and feeding tube CARDIOVASCULAR: Regular rate and rhythm without murmurs, gallops, or rubs. RESPIRATORY: Clear to auscultation. Breath sounds equal bilaterally. No wheezes , rales, or rhonchi. GASTROINTESTINAL: Abdomen soft, non-tender, nondistended. Normal active bowel sounds MUSCULOSKELETAL: Multiple contractures, right arm swelling NEURO: Eyes open, non-interactive Procedures 07/26- PEG replacement 07/29- right pigtail catheter placement for new pneumothorax Date of Insertion: Dec 16, 2015 A/P Problem List: (1) Sepsis due to urinary tract infection ICD Code: A41.9 Status: Resolved (2) Acute respiratory failure ICD Code: J96.00 Status: Resolved (3) Chronic respiratory failure ICD Code: J96.10 Status: Chronic (4) Parkinson disease ICD Code: G20 Status: Chronic (5) UTI (urinary tract infection) ICD Code: N39.0 Status: Acute (6) Encephalopathy ICD Code: G93.40 Status: Resolved Assessment and Plan Hospital day #188 for this unfortunate gentleman who has been admitted to the hospital to being [facility]. Patient has acute on chronic respiratory failure requiring tracheostomy and pulmonary has been managing this. He has Parkinson's disease which at baseline he is nonverbal and does not follow commands and has quite a few contractures. Continue medical treatment as tolerated for chronic respiratory failure. Continue Levsin, bronchodilators and low-dose steroids lavage, BiPAP as needed d/w LIFE COACH, palliative care, Felisha Naranjo MD Dec 23, 2015 15:19
--- NOTE | 2015-12-23 18:02 | HHI.PR ---
Subjective Remarks Seen Chronic Resp failure. Awake and lethargic .Responds to some questions. On a T bar FIO2 40 %. On tube feeds at 30 CC. Objective Vital Signs Date Time Temp Pulse Resp B/P Pulse Ox O2 Delivery O2 Flow Rate FiO2 12/23/15 16:00 T-Piece 40 12/23/15 16:00 98.2 84 25 138/94 97 12/23/15 16:00 89 12/23/15 14:00 89 12/23/15 12:00 88 12/23/15 12:00 98.5 88 25 106/74 98 12/23/15 12:00 T-Piece 40 12/23/15 10:00 83 12/23/15 08:25 98 T-piece 6.00 40 12/23/15 08:00 98.2 85 25 126/84 99 12/23/15 08:00 85 12/23/15 08:00 T-Piece 40 12/23/15 06:00 81 12/23/15 04:00 98.1 67 21 121/64 99 12/23/15 04:00 T-Piece 40 12/23/15 04:00 67 12/23/15 02:00 70 12/23/15 00:00 75 12/23/15 00:00 T-Piece 40 12/23/15 00:00 98.5 75 20 93/61 99 12/22/15 22:00 83 12/22/15 21:15 96 T-piece 50 12/22/15 20:00 98.2 88 23 112/71 91 12/22/15 20:00 T-Piece 40 12/22/15 20:00 88 I/O 12/22/15 12/22/15 12/22/15 12/23/15 12/23/15 12/23/15 07:00 15:00 23:00 07:00 15:00 23:00 Intake Total 1588 ml 3937 ml 1078 ml 1566 ml Output Total 1250 ml 2500 ml 800 ml 900 ml Balance 338 ml 1437 ml 278 ml 666 ml IV Total 664 ml 2697 ml 680 ml 850 ml Tube Feeding 524 ml 440 ml 198 ml 256 ml Other 400 ml 800 ml 200 ml 460 ml Output Urine Total 1250 ml 2500 ml 800 ml 900 ml # Bowel Movements 0 0 0 Result Diagram: 12/20/15 0612/20/15 0600 Objective Remarks This is a thin white male who is responsive , Lethargic,with a trach tube in place. HEENT: Pupils are equal and reactive to light. Few trach secretions CHEST:Decreased breath sounds, with Occ wheezes. CARDIOVASCULAR: S1 and S2 is normal.No murmur. ABDOMEN: Soft, nondistended. BS +. He has a PEG tube in place. EXTREMITIES: No edema.muscle wasting. NEURO: Awake and has weak extremities. Skin is dry. Assessment and Plan Assessment and Plan IMPRESSION 1. Chronic Respiratory failure. 2. Sepsis, Aspiration. 3. Left basal Pneumonia 4. Tracheobronchitis 5. Parkinson's disease 6. Dementia. 7. Severe Deconditioning. Plan : 1. Continue on 40 % T Bar daytime 2. Nebs Bid , duoneb. 3. Cont tube feeds at 35 CC 4. prednisone 2.5 mg daily. 5. Levsin .25 mg tid prn for Secretions 6. Cont Trach toilet and lavage. 8. Cont Bipap at HS12/5 ,FIO2 30 % 9. PT for activity/Postural drainage qid. Darren Kiser MD Dec 23, 2015 18:02 Darren Kiser MD Dec 23, 2015 18:02
[2015-12-23] MEDS: OLANZapine 5 MG TAB GT SCH (21:05)
[2015-12-24] VITALS (17 sets, daily range): BP systolic 87–133; BP diastolic 55–90; PULSE 66–94; RESP 20–33; TEMP 97.5–98.8; O2SAT 93–100
[2015-12-24] MEDS: FREE WATER G-TUBE SCH ×6 (04:00→20:00)
[2015-12-24] MEDS: METOCLOPRAMIDE HCL 10 MG/2 ML VIAL IV PUSH SCH ×3 (04:40→16:59)
[2015-12-24] MEDS: SODIUM CHLOR 0.9% 1000 ML INJ 1,000 ML IV SCH ×2 (04:59→14:20)
[2015-12-24] MEDS: INSULIN NovoLIN REGULAR SUPPLEMENTAL SCALE SQ SCH ×4 (05:39→16:58)
[2015-12-24] MEDS: clonazePAM 1 MG TAB PO SCH ×3 (05:39→22:52)
[2015-12-24] MEDS: CARBIDOPA/LEVODOPA 25 MG/100 MG TAB GT SCH ×3 (05:39→22:52)
[2015-12-24] MEDS: CHLORHEXIDINE 0.12% (ORAL KIT) 15 ML CUP MT SCH ×2 (08:57→21:32)
[2015-12-24] MEDS: PANTOPRAZOLE SOD 40 MG DELAYED RELEASE TAB PO SCH (08:59)
[2015-12-24] MEDS: predniSONE 5 MG TAB PO SCH (08:59)
[2015-12-24] MEDS: LACTOBACILLUS ACIDOPHILUS TAB PO SCH ×3 (08:59→16:59)
[2015-12-24] MEDS: SODIUM CHLORIDE 0.9% FLUSH 5 ML FLUSH IVF SCH ×2 (08:59→21:33)
[2015-12-24] MEDS: GABAPENTIN 300 MG CAP G-TUBE SCH ×2 (08:59→21:33)
[2015-12-24] MEDS: MIDODRINE 5 MG TAB G-TUBE SCH ×2 (09:00→21:32)
[2015-12-24] MEDS: QUEtiapine FUMARATE 25 MG TAB G-TUBE SCH ×2 (09:00→21:33)
[2015-12-24] MEDS: LANSOPRAZOLE SOLUTAB 30 MG TAB NG SCH (09:00)
[2015-12-24] MEDS: PARoxetine HCL 20 MG TAB G-TUBE SCH (09:00)
[2015-12-24] MEDS: POTASSIUM CHLORIDE 10 MEQ CAP G-TUBE SCH ×2 (09:00→21:32)
[2015-12-24] MEDS: COLLAGENASE OINT 30 GM TUBE TOP SCH (09:01)
--- NOTE | 2015-12-24 11:54 | HHI.HCPN ---
Left message for daughter, Radha to provide update and further clarify goals. She called back immediately. Medical update provided. Once again I reviewed that patient has not had any clinical improvement. We reviewed ongoing aspiration risk, repeat infections and difficulty tolerating tube feeding. She wants to know if we can "fix it." Advised as per Dr. Hoffmann prior conversation that he have maximized treatments. I reviewed her prior conversation with Dr. Hernandez earlier this week. She tells me she is NOT ready to consider hospice services. She requests a letter stating he remains in ICU. Written and emailed to Radha at [email or web address] ALOK JONES Dec 24, 2015 11:54
--- NOTE | 2015-12-24 12:51 | HHI.PR ---
Subjective Remarks Awake and lethargic .Responds to some questions. On a T bar FIO2 40 %. On tube feeds at 35 CC. Objective Vital Signs Date Time Temp Pulse Resp B/P Pulse Ox O2 Delivery O2 Flow Rate FiO2 12/24/15 10:00 88 12/24/15 09:18 96 T-piece 5.00 35 12/24/15 08:00 98 T-Piece 35 12/24/15 08:00 80 12/24/15 08:00 97.7 80 26 133/90 99 12/24/15 07:20 78 12/24/15 06:00 84 12/24/15 04:00 97 T-Piece 40 12/24/15 04:00 66 12/24/15 04:00 97.5 66 20 113/67 97 12/24/15 02:00 77 12/24/15 01:19 98 T-piece 4.00 35 12/24/15 00:00 98.2 76 20 103/63 100 12/24/15 00:00 76 12/24/15 00:00 100 T-Piece 40 12/23/15 22:00 81 12/23/15 20:00 84 12/23/15 20:00 97 T-Piece 40 12/23/15 20:00 99.2 84 32 128/85 97 12/23/15 19:50 97 T-piece 5.00 40 12/23/15 18:00 80 12/23/15 16:00 T-Piece 40 12/23/15 16:00 98.2 84 25 138/94 97 12/23/15 16:00 89 12/23/15 14:00 89 I/O 12/23/15 12/23/15 12/23/15 12/24/15 12/24/15 12/24/15 07:00 15:00 23:00 07:00 15:00 23:00 Intake Total 1078 ml 1566 ml 1278 ml 1356 ml Output Total 800 ml 900 ml 1950 ml 1700 ml Balance 278 ml 666 ml -672 ml -344 ml IV Total 680 ml 850 ml 779 ml 705 ml Tube Feeding 198 ml 256 ml 269 ml 221 ml Other 200 ml 460 ml 230 ml 430 ml Output Urine Total 800 ml 900 ml 1950 ml 1700 ml Tube Feeding Residual Discard 0 ml 0 ml # Bowel Movements 0 0 0 Result Diagram: 12/20/1559912/20/15599 Objective Remarks This is a thin white male who is responsive , Lethargic,with a trach tube in place. HEENT: Pupils are equal and reactive to light. CHEST:Decreased breath sounds, with Occ wheezes. CARDIOVASCULAR: S1 and S2 is normal.No murmur. ABDOMEN: Soft, nondistended. BS +. He has a PEG tube in place. EXTREMITIES: No edema.muscle wasting. NEURO: Awake and has weak extremities. Skin is dry. Assessment and Plan Assessment and Plan IMPRESSION 1. Chronic Respiratory failure. 2. Sepsis, Aspiration. 3. Left basal Pneumonia 4. Tracheobronchitis 5. Parkinson's disease 6. Dementia. 7. Severe Deconditioning. Plan : 1. Continue on 40 % T Bar daytime 2. Nebs Bid , duoneb. 3. Cont tube feeds at 35 CC 4. cont prednisone 2.5 mg daily. 5. Levsin .25 mg tid prn for Secretions 6. Cont Trach toilet and lavage. 8. Cont Bipap at HS 12/5 ,FIO2 30 % 9. PT for activity/Postural drainage qid. 10. Labs in am. Darren Kiser MD Dec 24, 2015 12:50
[2015-12-24] MEDS: ARTIFICIAL TEARS OPTH SOLN 15 ML BTL EACH EYE SCH ×2 (13:07→16:59)
--- NOTE | 2015-12-24 13:24 | HHI.PR ---
Subjective Remarks Patient seen and evaluated today in follow-up for chronic encephalopathy. Care plan discussed with JUNIOR ADMINISTRATIVE ASSISTANT. No new events. Objective Vitals Vital Signs Date Time Temp Pulse Resp B/P Pulse Ox O2 Delivery O2 Flow Rate FiO2 12/24/15 10:00 88 12/24/15 09:18 96 T-piece 5.00 35 12/24/15 08:00 98 T-Piece 35 12/24/15 08:00 80 12/24/15 08:00 97.7 80 26 133/90 99 12/24/15 07:20 78 12/24/15 06:00 84 12/24/15 04:00 97 T-Piece 40 12/24/15 04:00 66 12/24/15 04:00 97.5 66 20 113/67 97 12/24/15 02:00 77 12/24/15 01:19 98 T-piece 4.00 35 12/24/15 00:00 98.2 76 20 103/63 100 12/24/15 00:00 76 12/24/15 00:00 100 T-Piece 40 12/23/15 22:00 81 12/23/15 20:00 84 12/23/15 20:00 97 T-Piece 40 12/23/15 20:00 99.2 84 32 128/85 97 12/23/15 19:50 97 T-piece 5.00 40 12/23/15 18:00 80 12/23/15 16:00 T-Piece 40 12/23/15 16:00 98.2 84 25 138/94 97 12/23/15 16:00 89 12/23/15 14:00 89 I/O 12/23/15 12/23/15 12/23/15 12/24/15 12/24/15 12/24/15 07:00 15:00 23:00 07:00 15:00 23:00 Intake Total 1078 ml 1566 ml 1278 ml 1356 ml Output Total 800 ml 900 ml 1950 ml 1700 ml Balance 278 ml 666 ml -672 ml -344 ml IV Total 680 ml 850 ml 779 ml 705 ml Tube Feeding 198 ml 256 ml 269 ml 221 ml Other 200 ml 460 ml 230 ml 430 ml Output Urine Total 800 ml 900 ml 1950 ml 1700 ml Tube Feeding Residual Discard 0 ml 0 ml # Bowel Movements 0 0 0 Result Diagram: 12/20/1559912/20/15599 Objective Remarks Sacral ulcer examined and appears unchanged from previous encounter, left shoulder dressing to prevent pressure sores. Currently clear skin GENERAL: This is a frail unresponsive male in no distress with tracheostomy and feeding tube CARDIOVASCULAR: Regular rate and rhythm without murmurs, gallops, or rubs. RESPIRATORY: Clear to auscultation. Breath sounds equal bilaterally. No wheezes , rales, or rhonchi. GASTROINTESTINAL: Abdomen soft, non-tender, nondistended. Normal active bowel sounds MUSCULOSKELETAL: Multiple contractures, right arm swelling NEURO: Eyes open, non-interactive Procedures 07/26- PEG replacement 07/29- right pigtail catheter placement for new pneumothorax Date of Insertion: Dec 16, 2015 A/P Problem List: (1) Sepsis due to urinary tract infection ICD Code: A41.9 Status: Resolved (2) Acute respiratory failure ICD Code: J96.00 Status: Resolved (3) Chronic respiratory failure ICD Code: J96.10 Status: Chronic (4) Parkinson disease ICD Code: G20 Status: Chronic (5) UTI (urinary tract infection) ICD Code: N39.0 Status: Acute (6) Encephalopathy ICD Code: G93.40 Status: Resolved Assessment and Plan Hospital day #189 for this unfortunate gentleman who has been admitted to the hospital after being found unresponsive in a intermediate facility. Patient has acute on chronic respiratory failure requiring tracheostomy and pulmonary has been managing this. He has Parkinson's disease which at baseline he is nonverbal and does not follow commands and has quite a few contractures. Continue medical treatment as tolerated for chronic respiratory failure. Continue Levsin, bronchodilators and low-dose steroids lavage, BiPAP as needed d/w JUNIOR ADMINISTRATIVE ASSISTANTFINESSE Naranjo,Felisha Alvarenga MD Dec 24, 2015 13:24
[2015-12-24] MEDS: OLANZapine 5 MG TAB GT SCH (21:32)
[2015-12-25] VITALS (15 sets, daily range): BP systolic 114–129; BP diastolic 77–86; PULSE 66–86; RESP 20–30; TEMP 97.6–98.6; O2SAT 97–99
[2015-12-25] MEDS: METOCLOPRAMIDE HCL 10 MG/2 ML VIAL IV PUSH SCH ×3 (02:38→18:05)
[2015-12-25] MEDS: SODIUM CHLOR 0.9% 1000 ML INJ 1,000 ML IV SCH ×3 (02:38→22:00)
[2015-12-25] MEDS: FREE WATER G-TUBE SCH ×6 (04:00→20:00)
[2015-12-25] MEDS: INSULIN NovoLIN REGULAR SUPPLEMENTAL SCALE SQ SCH ×4 (06:00→18:00)
[2015-12-25] MEDS: CARBIDOPA/LEVODOPA 25 MG/100 MG TAB GT SCH ×3 (06:36→22:00)
[2015-12-25] MEDS: clonazePAM 1 MG TAB PO SCH ×3 (06:37→22:00)
[2015-12-25] MEDS: POTASSIUM CHLORIDE 10 MEQ CAP G-TUBE SCH ×2 (10:27→21:00)
[2015-12-25] MEDS: CHLORHEXIDINE 0.12% (ORAL KIT) 15 ML CUP MT SCH ×2 (10:27→20:00)
[2015-12-25] MEDS: ARTIFICIAL TEARS OPTH SOLN 15 ML BTL EACH EYE SCH ×3 (10:27→18:05)
[2015-12-25] MEDS: GABAPENTIN 300 MG CAP G-TUBE SCH ×2 (10:27→21:00)
[2015-12-25] MEDS: QUEtiapine FUMARATE 25 MG TAB G-TUBE SCH ×2 (10:28→21:00)
[2015-12-25] MEDS: MIDODRINE 5 MG TAB G-TUBE SCH ×2 (10:28→21:00)
[2015-12-25] MEDS: LACTOBACILLUS ACIDOPHILUS TAB PO SCH ×3 (10:28→18:04)
[2015-12-25] MEDS: PANTOPRAZOLE SOD 40 MG DELAYED RELEASE TAB PO SCH (10:28)
[2015-12-25] MEDS: LANSOPRAZOLE SOLUTAB 30 MG TAB NG SCH (10:28)
[2015-12-25] MEDS: predniSONE 5 MG TAB PO SCH (10:28)
[2015-12-25] MEDS: PARoxetine HCL 20 MG TAB G-TUBE SCH (10:29)
[2015-12-25] MEDS: SODIUM CHLORIDE 0.9% FLUSH 5 ML FLUSH IVF SCH ×2 (10:29→21:00)
--- NOTE | 2015-12-25 13:28 | HHI.PR ---
Subjective Remarks Patient seen and evaluated in follow-up for chronic encephalopathy. Status is unchanged. Care plan discussed with OTOLOGIST Objective Vitals Vital Signs Date Time Temp Pulse Resp B/P Pulse Ox O2 Delivery O2 Flow Rate FiO2 12/25/15 12:00 98.4 84 25 114/77 98 12/25/15 12:00 98 T-Piece 28 12/25/15 12:00 84 12/25/15 10:00 81 12/25/15 08:35 97 T-piece 28 12/25/15 08:00 84 12/25/15 08:00 98 T-Piece 28 12/25/15 08:00 98.4 84 30 119/83 98 12/25/15 06:00 85 12/25/15 04:00 97.9 66 20 115/78 97 12/25/15 04:00 97 T-Piece 28 12/25/15 04:00 66 12/25/15 03:35 98 T-piece 5.00 28 12/25/15 02:00 71 12/25/15 00:00 97.6 76 20 116/82 98 12/25/15 00:00 76 12/25/15 00:00 100 T-Piece 35 12/24/15 22:00 89 12/24/15 20:00 98.8 70 24 119/83 98 12/24/15 20:00 70 12/24/15 20:00 98 T-Piece 35 12/24/15 19:37 98 T-piece 4.00 35 12/24/15 18:00 90 12/24/15 16:00 98.0 94 33 102/66 100 12/24/15 16:00 100 T-Piece 35 12/24/15 16:00 94 12/24/15 14:00 90 I/O 12/24/15 12/24/15 12/24/15 12/25/15 12/25/15 12/25/15 07:00 15:00 23:00 07:00 15:00 23:00 Intake Total 1356 ml 1319 ml 1370 ml 1427 ml Output Total 1700 ml 1200 ml 2375 ml 1550 ml 0 ml Balance -344 ml 119 ml -1005 ml -123 ml 0 ml IV Total 705 ml 773 ml 793 ml 697 ml Tube Feeding 221 ml 246 ml 317 ml 300 ml Other 430 ml 300 ml 260 ml 430 ml Output Urine Total 1700 ml 1200 ml 2375 ml 1550 ml Tube Feeding Residual Discard 0 ml 0 ml 0 ml 0 ml # Bowel Movements 0 1 0 1 Objective Remarks Sacral ulcer examined and appears unchanged from previous encounter, left shoulder dressing to prevent pressure sores. Currently clear skin GENERAL: This is a frail unresponsive male in no distress with tracheostomy and feeding tube CARDIOVASCULAR: Regular rate and rhythm without murmurs, gallops, or rubs. RESPIRATORY: Clear to auscultation. Breath sounds equal bilaterally. No wheezes , rales, or rhonchi. GASTROINTESTINAL: Abdomen soft, non-tender, nondistended. Normal active bowel sounds MUSCULOSKELETAL: Multiple contractures, right arm swelling NEURO: Eyes open, non-interactive Procedures 07/26- PEG replacement 07/29- right pigtail catheter placement for new pneumothorax Date of Insertion: Dec 16, 2015 A/P Problem List: (1) Sepsis due to urinary tract infection ICD Code: A41.9 Status: Resolved (2) Acute respiratory failure ICD Code: J96.00 Status: Resolved (3) Chronic respiratory failure ICD Code: J96.10 Status: Chronic (4) Parkinson disease ICD Code: G20 Status: Chronic (5) UTI (urinary tract infection) ICD Code: N39.0 Status: Acute (6) Encephalopathy ICD Code: G93.40 Status: Resolved Assessment and Plan Hospital day #190 for this unfortunate gentleman who has been admitted to the hospital after being found unresponsive in a senior care facility. Patient has acute on chronic respiratory failure requiring tracheostomy and pulmonary has been managing this. He has Parkinson's disease which at baseline he is nonverbal and does not follow commands and has quite a few contractures. Continue medical treatment as tolerated for chronic respiratory failure. Continue Levsin, bronchodilators and low-dose steroids lavage, BiPAP as needed d/w OTOLOGISTFINESSE Naranjo,Felisha Alvarenga MD Dec 25, 2015 13:28
[2015-12-25] MEDS: COLLAGENASE OINT 30 GM TUBE TOP SCH (13:44)
--- NOTE | 2015-12-25 19:19 | HHI.PR ---
Subjective Remarks Awake and lethargic .Responds to some questions. On a T bar FIO2 28 %. On tube feeds at 35 CC. No fever. Objective Vital Signs Date Time Temp Pulse Resp B/P Pulse Ox O2 Delivery O2 Flow Rate FiO2 12/25/15 18:00 86 12/25/15 16:00 97 T-Piece 28 12/25/15 16:00 85 12/25/15 16:00 98.6 86 25 120/86 97 12/25/15 14:00 74 12/25/15 12:00 98.4 84 25 114/77 98 12/25/15 12:00 98 T-Piece 28 12/25/15 12:00 84 12/25/15 10:00 81 12/25/15 08:35 97 T-piece 28 12/25/15 08:00 84 12/25/15 08:00 98 T-Piece 28 12/25/15 08:00 98.4 84 30 119/83 98 12/25/15 06:00 85 12/25/15 04:00 97.9 66 20 115/78 97 12/25/15 04:00 97 T-Piece 28 12/25/15 04:00 66 12/25/15 03:35 98 T-piece 5.00 28 12/25/15 02:00 71 12/25/15 00:00 97.6 76 20 116/82 98 12/25/15 00:00 76 12/25/15 00:00 100 T-Piece 35 12/24/15 22:00 89 12/24/15 20:00 98.8 70 24 119/83 98 12/24/15 20:00 70 12/24/15 20:00 98 T-Piece 35 12/24/15 19:37 98 T-piece 4.00 35 I/O 12/24/15 12/24/15 12/24/15 12/25/15 12/25/15 12/25/15 06:59 14:59 22:59 06:59 14:59 22:59 Intake Total 1356 ml 1319 ml 1370 ml 1427 ml 1435 ml Output Total 1700 ml 1200 ml 2375 ml 1550 ml 2000 ml Balance -344 ml 119 ml -1005 ml -123 ml -565 ml IV Total 705 ml 773 ml 793 ml 697 ml 754 ml Tube Feeding 221 ml 246 ml 317 ml 300 ml 281 ml Other 430 ml 300 ml 260 ml 430 ml 400 ml Output Urine Total 1700 ml 1200 ml 2375 ml 1550 ml 2000 ml Tube Feeding Residual Discard 0 ml 0 ml 0 ml 0 ml # Bowel Movements 0 1 0 1 1 Objective Remarks This is a thin white male who is responsive , Lethargic,with a trach tube in place. HEENT: Pupils are equal and reactive to light. CHEST:Decreased breath sounds, with Occ basal crackles CARDIOVASCULAR: S1 and S2 is normal.No murmur. ABDOMEN: Soft, nondistended. BS +. He has a PEG tube in place. EXTREMITIES: No edema.muscle wasting. NEURO: Awake and has weak extremities. Skin is dry. Assessment and Plan Assessment and Plan IMPRESSION 1. Chronic Respiratory failure. 2. Sepsis, Aspiration. 3. Left basal Pneumonia 4. Tracheobronchitis 5. Parkinson's disease 6. Dementia. 7. Severe Deconditioning. Plan : 1. Continue on 28 % T Bar daytime 2. Nebs Bid , duoneb. 3. Cont tube feeds at 35 CC 4. cont prednisone 2.5 mg daily. 5. Levsin .25 mg tid prn for Secretions 6. Cont Trach toilet and lavage. 8. Cont Bipap at HS 12/5 ,FIO2 25 % 9. PT for activity/Postural drainage qid. 10. Chest X ray Monday Darren Kiser MD Dec 25, 2015 19:19
[2015-12-25] MEDS: OLANZapine 5 MG TAB GT SCH (21:00)
[2015-12-25] MEDS: HYOSCYAMINE SOLN 0.125 MG/ML 15 ML BTL PO PRN (23:18)
[2015-12-26] VITALS (14 sets, daily range): BP systolic 82–120; BP diastolic 51–81; PULSE 71–108; RESP 21–60; TEMP 97.8–99.8; O2SAT 93–100
[2015-12-26] MEDS: HYOSCYAMINE SOLN 0.125 MG/ML 15 ML BTL PO PRN ×2 (02:32→06:09)
[2015-12-26] MEDS: METOCLOPRAMIDE HCL 10 MG/2 ML VIAL IV PUSH SCH ×3 (02:32→18:15)
[2015-12-26] MEDS: FREE WATER G-TUBE SCH ×6 (04:00→20:00)
[2015-12-26] MEDS: INSULIN NovoLIN REGULAR SUPPLEMENTAL SCALE SQ SCH ×4 (06:00→18:00)
[2015-12-26] MEDS: clonazePAM 1 MG TAB PO SCH ×3 (06:08→20:21)
[2015-12-26] MEDS: CARBIDOPA/LEVODOPA 25 MG/100 MG TAB GT SCH ×3 (06:08→20:22)
[2015-12-26] MEDS: LORazepam 2 MG/ML VIAL IVP PRN (08:51)
[2015-12-26] MEDS: predniSONE 5 MG TAB PO SCH (08:51)
[2015-12-26] MEDS: GABAPENTIN 300 MG CAP G-TUBE SCH ×2 (08:51→20:22)
[2015-12-26] MEDS: LANSOPRAZOLE SOLUTAB 30 MG TAB NG SCH (08:51)
[2015-12-26] MEDS: LACTOBACILLUS ACIDOPHILUS TAB PO SCH ×3 (08:52→18:16)
[2015-12-26] MEDS: MIDODRINE 5 MG TAB G-TUBE SCH ×2 (08:52→20:23)
[2015-12-26] MEDS: QUEtiapine FUMARATE 25 MG TAB G-TUBE SCH ×2 (08:52→20:20)
[2015-12-26] MEDS: ARTIFICIAL TEARS OPTH SOLN 15 ML BTL EACH EYE SCH ×3 (08:52→18:16)
[2015-12-26] MEDS: PARoxetine HCL 20 MG TAB G-TUBE SCH (08:52)
[2015-12-26] MEDS: CHLORHEXIDINE 0.12% (ORAL KIT) 15 ML CUP MT SCH ×2 (08:53→20:00)
[2015-12-26] MEDS: SODIUM CHLOR 0.9% 1000 ML INJ 1,000 ML IV SCH ×2 (08:54→16:17)
[2015-12-26] MEDS: SODIUM CHLORIDE 0.9% FLUSH 5 ML FLUSH IVF SCH ×2 (08:54→20:24)
[2015-12-26] MEDS: COLLAGENASE OINT 30 GM TUBE TOP SCH (08:54)
--- NOTE | 2015-12-26 10:59 | RADRPT ---
EXAM DATE/TIME: 12/26/2015 10:09 [facility] COMPARISON: CHEST SINGLE AP, December 15, 2015, 13:38. INDICATIONS : Evaluate lung status. MEDICAL HISTORY : Hypertension. Gastroesophageal reflux disease. Diabetes mellitus type II. Parkinsons. SURGICAL HISTORY : Tracheostomy. ENCOUNTER: Subsequent ACUITY: 4 - 6 months PAIN SCORE: Non-responsive. LOCATION: Bilateral chest FINDINGS: Portable AP views of the chest demonstrate a normal-sized cardiac silhouette. Tracheostomy remains pr esent and overlies the tracheal air shadow. There is airspace consolidation in the left lower lobe an d questionable consolidation in the left upper lobe. There is blunting of the left costophrenic sulcu s. Right lung demonstrates no acute abnormality. No pneumothorax is seen. There is no acute osseous a bnormality identified. CONCLUSION: 1. There is new airspace consolidation in the left lower lobe and questionable mild left upper lobe a irspace consolidation. Findings could represent an infectious process/pneumonia in the appropriate cl inical setting. Also, aspiration should be a consideration. Suggest followup imaging following approp riate therapy to confirm resolution of this finding. 2. Slight blunting of the left costophrenic sulcus suggests a small left pleural effusion. Erlin Barajas MD on December 26, 2015 at 10:55 Board Certified Radiologist. This report was verified electronically.
[2015-12-26] MEDS: POTASSIUM CHLORIDE 10 MEQ CAP G-TUBE SCH ×2 (12:39→20:22)
--- NOTE | 2015-12-26 14:30 | HHI.PR ---
Subjective Remarks Patient seen and evaluated for respiratory distress this am. Minimal secretions , RR inthe 40's some worsening hypoxemia , BiPap restarted. Chest xray shows new consolidation since 12/14, Likely chronic aspiration changes. D/W [employer] Objective Vitals Vital Signs Date Time Temp Pulse Resp B/P Pulse Ox O2 Delivery O2 Flow Rate FiO2 12/26/15 11:40 96 40 12/26/15 08:18 93 35 12/26/15 08:03 97 T-piece 28 12/26/15 06:00 103 12/26/15 04:00 98.7 100 21 98/61 100 12/26/15 04:00 100 12/26/15 04:00 100 T-Piece 28 12/26/15 02:00 101 12/26/15 00:00 98.7 101 21 111/81 100 12/26/15 00:00 101 12/26/15 00:00 100 T-Piece 28 12/25/15 22:00 67 12/25/15 21:20 99 T-piece 8.00 28 12/25/15 20:00 98.1 80 27 129/85 99 12/25/15 20:00 81 12/25/15 20:00 99 T-Piece 28 12/25/15 18:00 86 12/25/15 16:00 97 T-Piece 28 12/25/15 16:00 85 12/25/15 16:00 98.6 86 25 120/86 97 I/O 12/25/15 12/25/15 12/25/15 12/26/15 12/26/15 12/26/15 07:00 15:00 23:00 07:00 15:00 23:00 Intake Total 1427 ml 1435 ml 1254 ml 1292 ml Output Total 1550 ml 2000 ml 1700 ml 850 ml Balance -123 ml -565 ml -446 ml 442 ml IV Total 697 ml 754 ml 844 ml 717 ml Tube Feeding 300 ml 281 ml 290 ml 175 ml Other 430 ml 400 ml 120 ml 400 ml Output Urine Total 1550 ml 2000 ml 1700 ml 850 ml Tube Feeding Residual Discard 0 ml 0 ml # Bowel Movements 1 1 0 1 Imaging Last Impressions Chest X-Ray 12/26/15 0000 Signed Impressions: Service Date/Time: Saturday, December 26, 2015 10:09 - CONCLUSION: 1. There is new airspace consolidation in the left lower lobe and questionable mild left upper lobe airspace consolidation. Findings could represent an infectious process/pneumonia in the appropriate clinical setting. Also, aspiration should be a consideration. Suggest followup imaging following appropriate therapy to confirm resolution of this finding. 2. Slight blunting of the left costophrenic sulcus suggests a small left pleural effusion. Erlin Barajas MD Abdomen X-Ray 12/07/15 0600 Signed Impressions: Service Date/Time: Monday, December 07, 2015 03:40 - CONCLUSION: No dilated loops of small or large bowel. Tai Jaquez MD Abdomen Ultrasound 12/06/15 0000 Signed Impressions: Service Date/Time: Sunday, December 06, 2015 17:42 - CONCLUSION: 1. The gallbladder is unremarkable with no evidence of cholelithiasis. 2. Simple cyst in the left kidney. 3. Mild pyelocaliectasis in the right kidney. Salazar Thurman MD Upper Extremity Ultrasound 10/13/15 0000 Signed Impressions: Service Date/Time: Tuesday, October 13, 2015 09:51 - CONCLUSION: 1. No evidence of deep venous thrombosis. John Anderson MD Renal Ultrasound 10/07/15 0000 Signed Impressions: Service Date/Time: Wednesday, October 07, 2015 18:29 - CONCLUSION: 1. No acute findings. 3.6 cm left renal cyst. Putnam catheter in bladder. Amaury Ellsworth MD Tunnelled Chest Tube Removal 08/05/15 1100 Signed Impressions: Service Date/Time: Wednesday, August 05, 2015 11:00 - CONCLUSION: Uncomplicated chest tube removal. Blaine Jackson MD Chest Tube Change 07/31/15 0000 Signed Impressions: Service Date/Time: Friday, July 31, 2015 14:34 - CONCLUSION: Uncomplicated reposition of previously placed chest tube as above. Blaine Jackson MD Chest Tube Insertion 07/30/15 0000 Signed Impressions: Service Date/Time: July 14:50 - CONCLUSION: Uncomplicated chest tube placement as above. Blaine Jackson MD Catheter Change 07/27/15 0000 Signed Impressions: Service Date/Time: Monday, July 27, 2015 14:43 - CONCLUSION: Uncomplicated gastrostomy tube exchange as above. Blaine Jackson MD Chest CT 07/11/15 0000 Signed Impressions: Service Date/Time: Saturday, July 11, 2015 09:49 - CONCLUSION: Scattered patchy densities significantly improved from previous study. Tiny anterior right basilar pneumothorax. Right-sided chest tube in good position. Néstor Matamoros MD Head CT 06/18/151902 Signed Impressions: Service Date/Time: June 19:31 - CONCLUSION: Diffuse atrophy unchanged. No acute intracranial findings. Kush Briscoe MD Abdomen/Pelvis CT 06/18/151902 Signed Impressions: Service Date/Time: , June 18, 2015 19:36 - CONCLUSION: 1. Chronic nonspecific urinary bladder wall thickening. Bladder collapsed with Putnam catheter in place. 2. Chronic bilateral mid to lower lung zone groundglass opacity. 3. Nonobstructing left renal calculus. 4. Distended rectum. Kush Briscoe MD Objective Remarks Sacral ulcer examined and appears unchanged from previous encounter, left shoulder dressing to prevent pressure sores. Currently clear skin GENERAL: This is a frail unresponsive male in no distress with tracheostomy and feeding tube CARDIOVASCULAR: Regular rate and rhythm without murmurs, gallops, or rubs. RESPIRATORY: Clear to auscultation. Breath sounds equal bilaterally. No wheezes , rales, or rhonchi. GASTROINTESTINAL: Abdomen soft, non-tender, nondistended. Normal active bowel sounds MUSCULOSKELETAL: Multiple contractures, right arm swelling NEURO: Eyes open, non-interactive Procedures 07/26- PEG replacement 07/29- right pigtail catheter placement for new pneumothorax Date of Insertion: Dec 16, 2015 A/P Problem List: (1) Sepsis due to urinary tract infection ICD Code: A41.9 Status: Resolved (2) Acute respiratory failure ICD Code: J96.00 Status: Resolved (3) Chronic respiratory failure ICD Code: J96.10 Status: Chronic (4) Parkinson disease ICD Code: G20 Status: Chronic (5) UTI (urinary tract infection) ICD Code: N39.0 Status: Acute (6) Encephalopathy ICD Code: G93.40 Status: Resolved Assessment and Plan Hospital day #191 for this unfortunate gentleman who has been admitted to the hospital after being found unresponsive in a group home facility. Patient has acute on chronic respiratory failure requiring tracheostomy and pulmonary has been managing this. He has Parkinson's disease which at baseline he is nonverbal and does not follow commands and has quite a few contractures. Continue medical treatment as tolerated for chronic respiratory failure. Continue Levsin, bronchodilators and low-dose steroids lavage, BiPAP as needed d/w [employer] 1. CXR likely shows chronic aspiration changes, cont bipap, as ID to reevaluate for any further abx management Felisha Naranjo MD Dec 26, 2015 14:30
--- NOTE | 2015-12-26 15:07 | HHI.IDPN ---
Subjective Subjective Remarks ID COVERAGE Notes reviewed Asked by Dr Naranjo to evaluate patient Developed hypoxemia earlier today and SOB Placed on BIPAP CXR with new infiltrates Temps ok BP good Lines Peripheral IV with no e/o infection Past Medical History reviewed Allergies: Coded Allergies: *MDRO Multi-Drug Resistant Organism (Verified Adverse Reaction, Unknown, 12/01/15) ESBL E. coli (urine) - 02/19/2015; ESBL K. 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 Vital Signs Date Time Temp Pulse Resp B/P Pulse Ox O2 Delivery O2 Flow Rate FiO2 12/26/15 11:40 96 40 12/26/15 08:18 93 35 12/26/15 08:03 97 T-piece 28 12/26/15 06:00 103 12/26/15 04:00 98.7 100 21 98/61 100 12/26/15 04:00 100 12/26/15 04:00 100 T-Piece 28 12/26/15 02:00 101 12/26/15 00:00 98.7 101 21 111/81 100 12/26/15 00:00 101 12/26/15 00:00 100 T-Piece 28 12/25/15 22:00 67 12/25/15 21:20 99 T-piece 8.00 28 12/25/15 20:00 98.1 80 27 129/85 99 12/25/15 20:00 81 12/25/15 20:00 99 T-Piece 28 12/25/15 18:00 86 12/25/15 16:00 97 T-Piece 28 12/25/15 16:00 85 12/25/15 16:00 98.6 86 25 120/86 97 12/25/15 12/25/15 12/26/15 14:59 22:59 06:59 Intake Total 1435 ml 1254 ml 1292 ml Output Total 2000 ml 1700 ml 850 ml Balance -565 ml -446 ml 442 ml IV Total 754 ml 844 ml 717 ml Tube Feeding 281 ml 290 ml 175 ml Other 400 ml 120 ml 400 ml Output Urine Total 2000 ml 1700 ml 850 ml Tube Feeding Residual Discard 0 ml # Bowel Movements 1 0 1 Imaging Abdomen X-Ray 12/07/15 0600 Signed Impressions: Service Date/Time: Monday, December 07, 2015 03:40 - CONCLUSION: No dilated loops of small or large bowel. Tai Jaquez MD Chest X-Ray 12/07/15 0000 Signed Impressions: Service Date/Time: Monday, December 07, 2015 03:34 - CONCLUSION: Right lung is clear. Slight improvement of interstitial infiltrates left mid and lower lung. Tai Jaquez MD Abdomen X-Ray 12/06/15 0000 Signed Impressions: Service Date/Time: Sunday, December 06, 2015 08:05 - CONCLUSION: No acute disease. Erlin Barajas MD Abdomen Ultrasound 12/06/15 0000 Signed Impressions: Service Date/Time: Sunday, December 06, 2015 17:42 - CONCLUSION: 1. The gallbladder is unremarkable with no evidence of cholelithiasis. 2. Simple cyst in the left kidney. 3. Mild pyelocaliectasis in the right kidney. Salazar Thurman MD Chest X-Ray 12/04/15 0600 Signed Impressions: Service Date/Time: Friday, December 04, 2015 03:50 - CONCLUSION: Interstitial densities in the right lung. Néstor Matamroos MD Chest X-Ray 11/28/15 0000 Signed Impressions: Service Date/Time: Saturday, November 28, 2015 00:21 - CONCLUSION: No acute cardiopulmonary disease. Eugene Schmid MD Abdomen X-Ray 11/26/15 0000 Signed Impressions: Service Date/Time: November 12:34 - CONCLUSION: 1. Nonobstructive bowel gas pattern. 2. Stable position of gastrostomy tube. Multiple surgical screws secure the proximal left femur. 3. No obvious pneumoperitoneum on the single projection provided. Scott Goode MD Upper Extremity Ultrasound 10/13/15 0000 Signed Impressions: Service Date/Time: Tuesday, October 13, 2015 09:51 - CONCLUSION: 1. No evidence of deep venous thrombosis. John Anderson MD Renal Ultrasound 10/07/15 0000 Signed Impressions: Service Date/Time: Wednesday, October 07, 2015 18:29 - CONCLUSION: 1. No acute findings. 3.6 cm left renal cyst. Putnam catheter in bladder. Amaury Ellsworth MD Tunnelled Chest Tube Removal 08/05/15 1100 Signed Impressions: Service Date/Time: Wednesday, August 05, 2015 11:00 - CONCLUSION: Uncomplicated chest tube removal. Blaine Jackson MD Chest Tube Change 07/31/15 0000 Signed Impressions: Service Date/Time: Friday, July 31, 2015 14:34 - CONCLUSION: Uncomplicated reposition of previously placed chest tube as above. Blaine Jackson MD Chest Tube Insertion 07/30/15 0000 Signed Impressions: Service Date/Time: July 14:50 - CONCLUSION: Uncomplicated chest tube placement as above. Blaine Jackson MD Catheter Change 07/27/15 0000 Signed Impressions: Service Date/Time: Monday, July 27, 2015 14:43 - CONCLUSION: Uncomplicated gastrostomy tube exchange as above. Blaine Jackson MD Chest CT 07/11/15 0000 Signed Impressions: Service Date/Time: Saturday, July 11, 2015 09:49 - CONCLUSION: Scattered patchy densities significantly improved from previous study. Tiny anterior right basilar pneumothorax. Right-sided chest tube in good position. Néstor Matamoros MD Head CT 06/18/151902 Signed Impressions: Service Date/Time: June 19:31 - CONCLUSION: Diffuse atrophy unchanged. No acute intracranial findings. Kush Briscoe MD Abdomen/Pelvis CT 06/18/151902 Signed Impressions: Service Date/Time: June 19:36 - CONCLUSION: 1. Chronic nonspecific urinary bladder wall thickening. Bladder collapsed with Putnam catheter in place. 2. Chronic bilateral mid to lower lung zone groundglass opacity. 3. Nonobstructing left renal calculus. 4. Distended rectum. Kush Briscoe MD Physical Exam GENERAL: No interaction, dyspneic. SKIN: Cool and moist. No generalized rash. HEENT: [place] conjunctivae, no icterus, moist mucosa. NECK: Trach site looks ok. Neck is supple RESPIRATORY: Coarse BS razia, with few rhonchi GASTROINTESTINAL: Abdomen soft, not distended. No guarding. PEG site looks okay. MUSCULOSKELETAL: No cyanosis No pedal edema. Contracted all 4 extremities. NEUROLOGICAL: Eyes open, Extremities contracted Peripheral IV line sites with no evidence of infection. ; Putnam in place, urine looks clear Assessment & Plan Remarks IMPRESSION Respiratory distress with new infiltartes on CXR - ?New PNA Sepsis/SIRS related to aspiration PNA?HCAP. Preceding events seem to be vomiting , ?aspiration, CXR now with some densisties on R - C/S with PSAE and Kleb ESBL+ - S/P Rx History of PSAE ESBL cath associated UTI. S/P Rx Leukocytosis, reactive due to current problem Previous C diff (+), no treated, improved - has had freq BM reported - will repeat if persistent and liquid Chronic respiratory failure on trach PSAE and ESBL Kleb in sputum in recent past. Chronic encephalopathy with underlying diagnosis of advanced dementia as well as advanced Parkinson's disease. Status post trach Status post gastrostomy tube with no evidence of infection. Stage II sacral decubitus ulcer present on admission. Intermittent vomiting Recurrent aspiration Recommendations Repeat CXR Check CBC Sputum G/S C/S Start Zosyn Follow C/S Monitor progress Bhavna Weeks MD Dec 26, 2015 15:07
[2015-12-26] MEDS: PIPERACIL-TAZO 4.5 GM PREMIX 100 ML IV SCH ×2 (16:17→20:24)
[2015-12-26 19:32] LABS: AUTOMATED NEUTROPHIL # 9.6 TH/MM3 (1.8-7.7); BASOPHIL # 0.1 TH/MM3 (0-0.2); BASOPHIL % 0.5 % (0.0-2.0); EOSINOPHIL # 0.5 TH/MM3 (0-0.4); HEMATOCRIT 28.7 % (39.0-51.0); HEMO FLAGS DIFF FINAL; LYMPH % 12.4 % (9.0-44.0); LYMPHOCYTE # 1.6 TH/MM3 (1.0-4.8); MEAN CELL VOLUME 85.5 FL (80.0-100.0); MEAN CORPUSCULAR HEMOGLOBIN 28.1 PG (27.0-34.0); MEAN CORPUSCULAR HGB CONC 32.8 % (32.0-36.0); MONO % 8.4 % (0.0-8.0); NEUT % 74.7 % (16.0-70.0); PLATELET COUNT 181 TH/MM3 (150-450); RED BLOOD COUNT 3.36 MIL/MM3 (4.50-5.90); RED CELL DISTRIBUTION WIDTH 15.4 % (11.6-17.2); WHITE BLOOD COUNT 12.8 TH/MM3 (4.0-11.0)
--- NOTE | 2015-12-26 19:38 | HHI.PR ---
Subjective Remarks Awake and lethargic and on BIPAP now.FIO2 35 % .Responds to some questions. On tube feeds at 35 CC. Has fever. and has pneumonia. Objective Vital Signs Date Time Temp Pulse Resp B/P Pulse Ox O2 Delivery O2 Flow Rate FiO2 12/26/15 16:11 99 35 12/26/15 16:00 Bi-Pap 35 T-Piece 12/26/15 16:00 97.8 100 28 92/56 98 12/26/15 12:00 98.5 100 42 82/51 96 12/26/15 12:00 Bi-Pap 40 T-Piece 12/26/15 11:40 96 40 12/26/15 08:18 93 35 12/26/15 08:03 97 T-piece 28 12/26/15 08:00 99.8 108 60 100/70 100 12/26/15 08:00 Bi-Pap 40 T-Piece 12/26/15 06:00 103 12/26/15 04:00 98.7 100 21 98/61 100 12/26/15 04:00 100 12/26/15 04:00 100 T-Piece 28 12/26/15 02:00 101 12/26/15 00:00 98.7 101 21 111/81 100 12/26/15 00:00 101 12/26/15 00:00 100 T-Piece 28 12/25/15 22:00 67 12/25/15 21:20 99 T-piece 8.00 28 12/25/15 20:00 98.1 80 27 129/85 99 12/25/15 20:00 81 12/25/15 20:00 99 T-Piece 28 I/O 12/25/15 12/25/15 12/25/15 12/26/15 12/26/15 12/26/15 06:59 14:59 22:59 06:59 14:59 22:59 Intake Total 1427 ml 1435 ml 1254 ml 1292 ml 1435 ml 200 ml Output Total 1550 ml 2000 ml 1700 ml 850 ml 650 ml Balance -123 ml -565 ml -446 ml 442 ml 785 ml 200 ml IV Total 697 ml 754 ml 844 ml 717 ml 800 ml Tube Feeding 300 ml 281 ml 290 ml 175 ml 235 ml Other 430 ml 400 ml 120 ml 400 ml 400 ml 200 ml Output Urine Total 1550 ml 2000 ml 1700 ml 850 ml 650 ml Tube Feeding Residual Discard 0 ml 0 ml # Bowel Movements 1 1 0 1 2 Result Diagram: 12/26/15 3086 Objective Remarks This is a thin white male who is responsive , Lethargic,with a trach tube in place. HEENT: Pupils are equal and reactive to light. CHEST:Decreased breath sounds, with bi basal crackles and wheeze. CARDIOVASCULAR: S1 and S2 is normal.No murmur. ABDOMEN: Soft, nondistended. BS +. He has a PEG tube in place. EXTREMITIES: No edema.muscle wasting. NEURO: Awake and has weak extremities. Skin is dry. Assessment and Plan Assessment and Plan IMPRESSION 1. Chronic Respiratory failure. 2. Sepsis, Aspiration. 3. Left basal Pneumonia 4. Tracheobronchitis 5. Parkinson's disease 6. Dementia. 7. Severe Deconditioning. Plan : 1. Continue on 40 % T Bar daytime 2. Nebs Bid , duoneb. 3. Cont tube feeds at 35 CC 4. cont prednisone 2.5 mg daily. 5. Levsin .25 mg tid prn for Secretions 6. Cont Trach toilet and lavage. 8. Cont Bipap at HS 12/5 ,FIO2 35 % 9. PT for activity/Postural drainage qid. 10. Chest X ray Monday 11. Antibiotics per Darren Lu MD Dec 26, 2015 19:38
[2015-12-26] MEDS: OLANZapine 5 MG TAB GT SCH (20:23)
[2015-12-26] MEDS ORDERED: PROPOFOL 1000 MG/100 ML IV SCH (23:15)
[2015-12-27] VITALS (18 sets, daily range): BP systolic 91–136; BP diastolic 63–83; PULSE 62–82; RESP 22–27; TEMP 97.6–98.7; O2SAT 97–99
[2015-12-27] MEDS: METOCLOPRAMIDE HCL 10 MG/2 ML VIAL IV PUSH SCH ×3 (02:04→17:15)
[2015-12-27] MEDS: FREE WATER G-TUBE SCH ×6 (04:00→20:00)
[2015-12-27] MEDS: PIPERACIL-TAZO 4.5 GM PREMIX 100 ML IV SCH ×4 (05:27→20:22)
[2015-12-27] MEDS: CARBIDOPA/LEVODOPA 25 MG/100 MG TAB GT SCH ×3 (05:27→20:23)
[2015-12-27] MEDS: clonazePAM 1 MG TAB PO SCH ×3 (05:27→20:23)
[2015-12-27] MEDS: INSULIN NovoLIN REGULAR SUPPLEMENTAL SCALE SQ SCH ×4 (05:27→18:00)
[2015-12-27] MEDS: SODIUM CHLORIDE 0.9% FLUSH 5 ML FLUSH IVF SCH ×2 (09:00→20:24)
--- NOTE | 2015-12-27 09:51 | HHI.IDPN ---
Subjective Subjective Remarks ID COVERAGE Notes reviewed Temps ok On BIPAP CXR with new infiltrates BP good Antibiotics Zosyn Lines Peripheral IV with no e/o infection Past Medical History reviewed Allergies: Coded Allergies: *MDRO Multi-Drug Resistant Organism (Verified Adverse Reaction, Unknown, 12/01/15) ESBL E. coli (urine) - 02/19/2015; ESBL K. 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 Vital Signs Date Time Temp Pulse Resp B/P Pulse Ox O2 Delivery O2 Flow Rate FiO2 12/27/15 08:06 98 35 12/27/15 06:00 82 12/27/15 04:05 98 35 12/27/15 04:00 98 Bi-Pap 35 12/27/15 04:00 97.6 62 22 106/69 98 12/27/15 04:00 62 12/27/15 02:00 67 12/27/15 01:12 98 35 12/27/15 00:00 97.7 69 26 91/63 99 12/27/15 00:00 69 12/27/15 00:00 99 Bi-Pap 35 12/26/15 22:00 80 12/26/15 21:11 96 35 12/26/15 20:00 99 Bi-Pap 35 12/26/15 20:00 98.5 71 29 120/70 99 12/26/15 20:00 75 12/26/15 16:11 99 35 12/26/15 16:00 Bi-Pap 35 T-Piece 12/26/15 16:00 97.8 100 28 92/56 98 12/26/15 12:00 98.5 100 42 82/51 96 12/26/15 12:00 Bi-Pap 40 T-Piece 12/26/15 11:40 96 40 12/26/15 12/26/15 12/27/15 15:00 23:00 07:00 Intake Total 1435 ml 1392 ml 1428 ml Output Total 650 ml 900 ml 700 ml Balance 785 ml 492 ml 728 ml IV Total 800 ml 719 ml 774 ml Tube Feeding 235 ml 273 ml 254 ml Other 400 ml 400 ml 400 ml Output Urine Total 650 ml 900 ml 700 ml # Bowel Movements 2 1 2 . Laboratory Tests Test 12/26/15 18:36 White Blood Count 12.8 TH/MM3 Red Blood Count 3.36 MIL/MM3 Hemoglobin 9.4 GM/DL Hematocrit 28.7 % Mean Corpuscular Volume 85.5 FL Mean Corpuscular Hemoglobin 28.1 PG Mean Corpuscular Hemoglobin 32.8 % Concent Red Cell Distribution Width 15.4 % Platelet Count 181 TH/MM3 Mean Platelet Volume 9.8 FL Neutrophils (%) (Auto) 74.7 % Lymphocytes (%) (Auto) 12.4 % Monocytes (%) (Auto) 8.4 % Eosinophils (%) (Auto) 4.0 % Basophils (%) (Auto) 0.5 % Neutrophils # (Auto) 9.6 TH/MM3 Lymphocytes # (Auto) 1.6 TH/MM3 Monocytes # (Auto) 1.1 TH/MM3 Eosinophils # (Auto) 0.5 TH/MM3 Basophils # (Auto) 0.1 TH/MM3 CBC Comment DIFF FINAL Differential Comment Microbiology Date/Time Procedure Status Source Growth 12/26/15 16:30 Gram Stain Received Sputum Endotracheal Pending 12/26/15 16:30 Sputum Culture Received Sputum Endotracheal Pending Imaging Abdomen X-Ray 12/07/15 0600 Signed Impressions: Service Date/Time: Monday, December 07, 2015 03:40 - CONCLUSION: No dilated loops of small or large bowel. Tai Jaquez MD Chest X-Ray 12/07/15 0000 Signed Impressions: Service Date/Time: Monday, December 07, 2015 03:34 - CONCLUSION: Right lung is clear. Slight improvement of interstitial infiltrates left mid and lower lung. Tai Jaquez MD Abdomen X-Ray 12/06/15 0000 Signed Impressions: Service Date/Time: Sunday, December 06, 2015 08:05 - CONCLUSION: No acute disease. rElin Barajas MD Abdomen Ultrasound 12/06/15 0000 Signed Impressions: Service Date/Time: Sunday, December 06, 2015 17:42 - CONCLUSION: 1. The gallbladder is unremarkable with no evidence of cholelithiasis. 2. Simple cyst in the left kidney. 3. Mild pyelocaliectasis in the right kidney. Salazar Thurman MD Chest X-Ray 12/04/15 0600 Signed Impressions: Service Date/Time: Friday, December 04, 2015 03:50 - CONCLUSION: Interstitial densities in the right lung. Néstor Matamoros MD Chest X-Ray 11/28/15 0000 Signed Impressions: Service Date/Time: Saturday, November 28, 2015 00:21 - CONCLUSION: No acute cardiopulmonary disease. Eugene Schmid MD Abdomen X-Ray 11/26/15 0000 Signed Impressions: Service Date/Time: November 12:34 - CONCLUSION: 1. Nonobstructive bowel gas pattern. 2. Stable position of gastrostomy tube. Multiple surgical screws secure the proximal left femur. 3. No obvious pneumoperitoneum on the single projection provided. Scott Goode MD Upper Extremity Ultrasound 10/13/15 0000 Signed Impressions: Service Date/Time: Tuesday, October 13, 2015 09:51 - CONCLUSION: 1. No evidence of deep venous thrombosis. John Anderson MD Renal Ultrasound 10/07/15 0000 Signed Impressions: Service Date/Time: Wednesday, October 07, 2015 18:29 - CONCLUSION: 1. No acute findings. 3.6 cm left renal cyst. Putnam catheter in bladder. Amaury Ellsworth MD Tunnelled Chest Tube Removal 08/05/15 1100 Signed Impressions: Service Date/Time: Wednesday, August 05, 2015 11:00 - CONCLUSION: Uncomplicated chest tube removal. Blaine Jackson MD Chest Tube Change 07/31/15 0000 Signed Impressions: Service Date/Time: Friday, July 31, 2015 14:34 - CONCLUSION: Uncomplicated reposition of previously placed chest tube as above. Blaine Jackson MD Chest Tube Insertion 07/30/15 0000 Signed Impressions: Service Date/Time: July 14:50 - CONCLUSION: Uncomplicated chest tube placement as above. Blaine Jackson MD Catheter Change 07/27/15 0000 Signed Impressions: Service Date/Time: Monday, July 27, 2015 14:43 - CONCLUSION: Uncomplicated gastrostomy tube exchange as above. Blaine Jackson MD Chest CT 07/11/15 0000 Signed Impressions: Service Date/Time: Saturday, July 11, 2015 09:49 - CONCLUSION: Scattered patchy densities significantly improved from previous study. Tiny anterior right basilar pneumothorax. Right-sided chest tube in good position. Néstor Matamoros MD Head CT 06/18/151902 Signed Impressions: Service Date/Time: June 19:31 - CONCLUSION: Diffuse atrophy unchanged. No acute intracranial findings. Kush Briscoe MD Abdomen/Pelvis CT 06/18/151902 Signed Impressions: Service Date/Time: , June 18, 2015 19:36 - CONCLUSION: 1. Chronic nonspecific urinary bladder wall thickening. Bladder collapsed with Putnam catheter in place. 2. Chronic bilateral mid to lower lung zone groundglass opacity. 3. Nonobstructing left renal calculus. 4. Distended rectum. Kush Briscoe MD Physical Exam GENERAL: No interaction, dyspneic. SKIN: Cool and moist. No generalized rash. HEENT: [place] conjunctivae, no icterus, moist mucosa. NECK: Trach site looks ok. Neck is supple RESPIRATORY: Coarse BS razia, with few rhonchi GASTROINTESTINAL: Abdomen soft, not distended. No guarding. PEG site looks okay. MUSCULOSKELETAL: No cyanosis No pedal edema. Contracted all 4 extremities. NEUROLOGICAL: Eyes open, Extremities contracted Peripheral IV line sites with no evidence of infection. ; Putnam in place, urine looks clear Assessment & Plan Remarks IMPRESSION Respiratory distress with new infiltartes on CXR - ?New PNA Sepsis/SIRS related to aspiration PNA?HCAP. Preceding events seem to be vomiting , ?aspiration, CXR now with some densisties on R - C/S with PSAE and Kleb ESBL+ - S/P Rx History of PSAE ESBL cath associated UTI. S/P Rx Leukocytosis, reactive due to current problem Previous C diff (+), no treated, improved - has had freq BM reported - will repeat if persistent and liquid Chronic respiratory failure on trach PSAE and ESBL Kleb in sputum in recent past. Chronic encephalopathy with underlying diagnosis of advanced dementia as well as advanced Parkinson's disease. Status post trach Status post gastrostomy tube with no evidence of infection. Stage II sacral decubitus ulcer present on admission. Intermittent vomiting Recurrent aspiration Recommendations Repeat CXR Repeat CBC Follow new Sputum G/S C/S Continue Zosyn Monitor progress Bhavna Weeks MD Dec 27, 2015 09:51
--- NOTE | 2015-12-27 10:28 | HHI.PR ---
Subjective Remarks Patient seen today in follow-up for chronic respiratory failure with acute exacerbation of the same. Requiring more suction over the last 24 hours. Patient also with some evidence of risk for distress and continued need for BiPAP. Care plan discussed with infectious disease also. Patient with abnormal chest x-ray? Worsening aspiration pneumonia. Zosyn is started. Objective Vitals Vital Signs Date Time Temp Pulse Resp B/P Pulse Ox O2 Delivery O2 Flow Rate FiO2 12/27/15 08:06 98 35 12/27/15 06:00 82 12/27/15 04:05 98 35 12/27/15 04:00 98 Bi-Pap 35 12/27/15 04:00 97.6 62 22 106/69 98 12/27/15 04:00 62 12/27/15 02:00 67 12/27/15 01:12 98 35 12/27/15 00:00 97.7 69 26 91/63 99 12/27/15 00:00 69 12/27/15 00:00 99 Bi-Pap 35 12/26/15 22:00 80 12/26/15 21:11 96 35 12/26/15 20:00 99 Bi-Pap 35 12/26/15 20:00 98.5 71 29 120/70 99 12/26/15 20:00 75 12/26/15 16:11 99 35 12/26/15 16:00 Bi-Pap 35 T-Piece 12/26/15 16:00 97.8 100 28 92/56 98 12/26/15 12:00 98.5 100 42 82/51 96 12/26/15 12:00 Bi-Pap 40 T-Piece 12/26/15 11:40 96 40 I/O 12/26/15 12/26/15 12/26/15 12/27/15 12/27/15 12/27/15 07:00 15:00 23:00 07:00 15:00 23:00 Intake Total 1292 ml 1435 ml 1392 ml 1428 ml Output Total 850 ml 650 ml 900 ml 700 ml Balance 442 ml 785 ml 492 ml 728 ml IV Total 717 ml 800 ml 719 ml 774 ml Tube Feeding 175 ml 235 ml 273 ml 254 ml Other 400 ml 400 ml 400 ml 400 ml Output Urine Total 850 ml 650 ml 900 ml 700 ml # Bowel Movements 1 2 1 2 Result Diagram: 12/26/15 1836 Objective Remarks Sacral ulcer examined and appears unchanged from previous encounter, left shoulder dressing to prevent pressure sores. Currently clear skin GENERAL: This is a frail unresponsive male in no distress with tracheostomy and feeding tube CARDIOVASCULAR: Regular rate and rhythm without murmurs, gallops, or rubs. RESPIRATORY: Clear to auscultation. Breath sounds equal bilaterally. No wheezes , rales, or rhonchi. GASTROINTESTINAL: Abdomen soft, non-tender, nondistended. Normal active bowel sounds MUSCULOSKELETAL: Multiple contractures, right arm swelling NEURO: Eyes open, non-interactive Procedures 07/26- PEG replacement 07/29- right pigtail catheter placement for new pneumothorax Date of Insertion: Dec 16, 2015 A/P Problem List: (1) Sepsis due to urinary tract infection ICD Code: A41.9 Status: Resolved (2) Acute respiratory failure ICD Code: J96.00 Status: Resolved (3) Chronic respiratory failure ICD Code: J96.10 Status: Chronic (4) Parkinson disease ICD Code: G20 Status: Chronic (5) UTI (urinary tract infection) ICD Code: N39.0 Status: Acute (6) Encephalopathy ICD Code: G93.40 Status: Resolved Assessment and Plan Hospital day #192 for this unfortunate gentleman who has been admitted to the hospital after being found unresponsive in a group home facility. Patient has acute on chronic respiratory failure requiring tracheostomy and pulmonary has been managing this. He has Parkinson's disease which at baseline he is nonverbal and does not follow commands and has quite a few contractures. Continue medical treatment as tolerated for chronic respiratory failure. 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 Worsening respiratory failure, repeat CXR likely shows chronic aspiration changes, cont bipap, continue IV zosyn Overall poor prognosis for meaningful recovery Felisha Naranjo MD Dec 27, 2015 10:28
[2015-12-27] MEDS: predniSONE 5 MG TAB PO SCH (10:36)
[2015-12-27] MEDS: PARoxetine HCL 20 MG TAB G-TUBE SCH (10:36)
[2015-12-27] MEDS: CHLORHEXIDINE 0.12% (ORAL KIT) 15 ML CUP MT SCH ×2 (10:36→20:00)
[2015-12-27] MEDS: COLLAGENASE OINT 30 GM TUBE TOP SCH (10:36)
[2015-12-27] MEDS: LACTOBACILLUS ACIDOPHILUS TAB PO SCH ×3 (10:37→17:15)
[2015-12-27] MEDS: QUEtiapine FUMARATE 25 MG TAB G-TUBE SCH ×2 (10:37→20:23)
[2015-12-27] MEDS: POTASSIUM CHLORIDE 10 MEQ CAP G-TUBE SCH ×2 (10:37→20:22)
[2015-12-27] MEDS: MIDODRINE 5 MG TAB G-TUBE SCH ×2 (10:37→20:23)
[2015-12-27] MEDS: GABAPENTIN 300 MG CAP G-TUBE SCH ×2 (10:37→20:23)
[2015-12-27] MEDS: LANSOPRAZOLE SOLUTAB 30 MG TAB NG SCH (10:37)
[2015-12-27] MEDS: ARTIFICIAL TEARS OPTH SOLN 15 ML BTL EACH EYE SCH ×3 (10:39→15:51)
[2015-12-27] MEDS: LORazepam 2 MG/ML VIAL IVP PRN (11:01)
--- NOTE | 2015-12-27 15:24 | HHI.PR ---
Subjective Remarks Awake and lethargic and on BIPAP now.FIO2 35 % .Responds to some questions. On tube feeds at 35 CC. Has fever. and has pneumonia. Mostly left lung infiltrate Objective Vital Signs Date Time Temp Pulse Resp B/P Pulse Ox O2 Delivery O2 Flow Rate FiO2 12/27/15 14:00 74 12/27/15 12:12 97 BiPAP 35 12/27/15 12:12 97 35 12/27/15 12:00 98 Bi-Pap 35 12/27/15 12:00 98.4 77 24 128/73 97 12/27/15 12:00 77 12/27/15 10:00 72 12/27/15 08:06 98 35 12/27/15 08:00 98.4 69 27 100/63 98 12/27/15 08:00 98 Bi-Pap 35 12/27/15 08:00 69 12/27/15 06:00 82 12/27/15 04:05 98 35 12/27/15 04:00 98 Bi-Pap 35 12/27/15 04:00 97.6 62 22 106/69 98 12/27/15 04:00 62 12/27/15 02:00 67 12/27/15 01:12 98 35 12/27/15 00:00 97.7 69 26 91/63 99 12/27/15 00:00 69 12/27/15 00:00 99 Bi-Pap 35 12/26/15 22:00 80 12/26/15 21:11 96 35 12/26/15 20:00 99 Bi-Pap 35 12/26/15 20:00 98.5 71 29 120/70 99 12/26/15 20:00 75 12/26/15 16:11 99 35 12/26/15 16:00 Bi-Pap 35 T-Piece 12/26/15 16:00 97.8 100 28 92/56 98 I/O 12/26/15 12/26/15 12/26/15 12/27/15 12/27/15 12/27/15 07:00 15:00 23:00 07:00 15:00 23:00 Intake Total 1292 ml 1435 ml 1392 ml 1428 ml Output Total 850 ml 650 ml 900 ml 700 ml Balance 442 ml 785 ml 492 ml 728 ml IV Total 717 ml 800 ml 719 ml 774 ml Tube Feeding 175 ml 235 ml 273 ml 254 ml Other 400 ml 400 ml 400 ml 400 ml Output Urine Total 850 ml 650 ml 900 ml 700 ml # Bowel Movements 1 2 1 2 Result Diagram: 12/26/151835 Objective Remarks This is a thin white male who is responsive , Lethargic,with a trach tube in place. HEENT: Pupils are equal and reactive to light. CHEST:Decreased breath sounds, with left basal crackles and wheeze. CARDIOVASCULAR: S1 and S2 is normal.No murmur. ABDOMEN: Soft, nondistended. BS +. He has a PEG tube in place. EXTREMITIES: No edema.muscle wasting. NEURO: Awake and has weak extremities. Skin is cool. Assessment and Plan Assessment and Plan IMPRESSION 1. Chronic Respiratory failure. 2. Sepsis, Aspiration. 3. Left basal Pneumonia 4. Tracheobronchitis 5. Parkinson's disease 6. Dementia. 7. Severe Deconditioning. Plan : 1. Continue on Bipap 5/15, FIo2 35 % 2. Nebs Bid , duoneb. 3. Cont tube feeds Jevity at 35 CC 4. cont prednisone 2.5 mg daily. 5. Levsin .25 mg tid prn for Secretions 6. Cont Trach toilet and lavage. 8. Will go to T bar if stable in am 9. PT for activity/Postural drainage qid. 10. Chest X ray Monday 11. Antibiotics per Darren Lu MD Dec 27, 2015 15:24
[2015-12-27] MEDS: HYOSCYAMINE SOLN 0.125 MG/ML 15 ML BTL PO PRN ×2 (15:26→20:27)
[2015-12-27] MEDS: SODIUM CHLOR 0.9% 1000 ML INJ 1,000 ML IV SCH (15:51)
[2015-12-27] MEDS: OLANZapine 5 MG TAB GT SCH (20:22)
[2015-12-28] VITALS (16 sets, daily range): BP systolic 100–133; BP diastolic 64–92; PULSE 61–97; RESP 20–27; TEMP 97.3–98.6; O2SAT 96–100
[2015-12-28] MEDS: METOCLOPRAMIDE HCL 10 MG/2 ML VIAL IV PUSH SCH ×3 (02:31→17:03)
[2015-12-28] MEDS: SODIUM CHLOR 0.9% 1000 ML INJ 1,000 ML IV SCH ×3 (02:31→22:16)
[2015-12-28] MEDS: COLLAGENASE OINT 30 GM TUBE TOP SCH (02:35)
[2015-12-28] MEDS: FREE WATER G-TUBE SCH ×6 (03:13→19:57)
[2015-12-28] MEDS: PIPERACIL-TAZO 4.5 GM PREMIX 100 ML IV SCH ×4 (03:13→22:16)
--- NOTE | 2015-12-28 04:53 | RADRPT ---
EXAM DATE/TIME: 12/28/2015 03:42 [facility] COMPARISON: CHEST SINGLE AP, December 26, 2015, 10:09. INDICATIONS : Shortness of breath, possible pulmonary disease. MEDICAL HISTORY : Hypertension. Gastroesophageal reflux disease. Diabetes mellitus type II. SURGICAL HISTORY : Tracheostomy ENCOUNTER: Subsequent ACUITY: 4 - 6 months PAIN SCORE: Non-responsive. LOCATION: Bilateral chest FINDINGS: There is a tracheostomy tube in place. The heart size is normal. There is patchy consolidation in the left perihilar region and bilateral upper lobes being worst on the right. No effusion is seen. CONCLUSION: Patchy areas of consolidation. Erlin Barajas MD on December 28, 2015 at 4:50 Board Certified Radiologist. This report was verified electronically.
[2015-12-28] MEDS: INSULIN NovoLIN REGULAR SUPPLEMENTAL SCALE SQ SCH ×4 (05:08→17:17)
[2015-12-28] MEDS: CARBIDOPA/LEVODOPA 25 MG/100 MG TAB GT SCH ×3 (05:08→22:15)
[2015-12-28] MEDS: clonazePAM 1 MG TAB PO SCH ×3 (05:08→22:15)
[2015-12-28 07:45] LABS: AUTOMATED NEUTROPHIL # 6.7 TH/MM3 (1.8-7.7); BASOPHIL # 0.1 TH/MM3 (0-0.2); BASOPHIL % 0.8 % (0.0-2.0); EOSINOPHIL # 0.6 TH/MM3 (0-0.4); EOSINOPHIL % 6.2 % (0.0-4.0); HEMATOCRIT 31.3 % (39.0-51.0); HEMO FLAGS DIFF FINAL; LYMPH % 16.7 % (9.0-44.0); LYMPHOCYTE # 1.6 TH/MM3 (1.0-4.8); MEAN CELL VOLUME 84.4 FL (80.0-100.0); MEAN CORPUSCULAR HEMOGLOBIN 27.9 PG (27.0-34.0); MEAN CORPUSCULAR HGB CONC 33.1 % (32.0-36.0); MONO % 6.2 % (0.0-8.0); NEUT % 70.1 % (16.0-70.0); PLATELET COUNT 145 TH/MM3 (150-450); RED BLOOD COUNT 3.71 MIL/MM3 (4.50-5.90); RED CELL DISTRIBUTION WIDTH 14.8 % (11.6-17.2); WHITE BLOOD COUNT 9.6 TH/MM3 (4.0-11.0)
[2015-12-28] MEDS: QUEtiapine FUMARATE 25 MG TAB G-TUBE SCH ×2 (09:06→19:56)
[2015-12-28] MEDS: LACTOBACILLUS ACIDOPHILUS TAB PO SCH ×3 (09:06→17:02)
[2015-12-28] MEDS: GABAPENTIN 300 MG CAP G-TUBE SCH ×2 (09:07→19:56)
[2015-12-28] MEDS: MIDODRINE 5 MG TAB G-TUBE SCH ×2 (09:07→19:56)
[2015-12-28] MEDS: SODIUM CHLORIDE 0.9% FLUSH 5 ML FLUSH IVF SCH ×2 (09:07→19:58)
[2015-12-28] MEDS: LANSOPRAZOLE SOLUTAB 30 MG TAB NG SCH (09:07)
[2015-12-28] MEDS: PARoxetine HCL 20 MG TAB G-TUBE SCH (09:07)
[2015-12-28] MEDS: POTASSIUM CHLORIDE 10 MEQ CAP G-TUBE SCH ×2 (09:07→19:56)
[2015-12-28] MEDS: predniSONE 5 MG TAB PO SCH (09:07)
[2015-12-28] MEDS: CHLORHEXIDINE 0.12% (ORAL KIT) 15 ML CUP MT SCH ×2 (09:09→19:58)
[2015-12-28] MEDS: ARTIFICIAL TEARS OPTH SOLN 15 ML BTL EACH EYE SCH ×3 (09:09→17:02)
--- NOTE | 2015-12-28 12:14 | HHI.PR ---
Subjective Remarks Awake and lethargic and still on BIPAP now.FIO2 35 % .Responds to some questions. On tube feeds at 35 CC. No fever but has pneumonia. Mostly left lung infiltrate Objective Vital Signs Date Time Temp Pulse Resp B/P Pulse Ox O2 Delivery O2 Flow Rate FiO2 12/28/15 10:15 98 35 12/28/15 06:00 68 12/28/15 04:43 100 35 12/28/15 04:00 61 12/28/15 04:00 97.8 61 24 119/86 100 12/28/15 04:00 100 Bi-Pap 35 12/28/15 02:00 68 12/28/15 00:47 97 35 12/28/15 00:00 98.6 68 25 100/69 99 12/28/15 00:00 99 Bi-Pap 35 12/28/15 00:00 68 12/27/15 22:00 81 12/27/15 21:02 99 35 12/27/15 20:00 75 12/27/15 20:00 98.7 74 25 136/83 97 12/27/15 20:00 97 Bi-Pap 35 12/27/15 18:00 74 12/27/15 16:08 98 35 12/27/15 16:00 98.4 79 25 132/70 98 12/27/15 16:00 79 12/27/15 16:00 98 Bi-Pap 35 12/27/15 14:00 74 I/O 12/27/15 12/27/15 12/27/15 12/28/15 12/28/15 12/28/15 07:00 15:00 23:00 07:00 15:00 23:00 Intake Total 1428 ml 1769 ml 1133 ml 1324 ml Output Total 700 ml 1700 ml 1150 ml 1000 ml Balance 728 ml 69 ml -17 ml 324 ml IV Total 774 ml 1040 ml 621 ml 750 ml Tube Feeding 254 ml 329 ml 312 ml 254 ml Other 400 ml 400 ml 200 ml 320 ml Output Urine Total 700 ml 1700 ml 1150 ml 1000 ml # Bowel Movements 2 1 0 1 Result Diagram: 12/28/15 0644 Objective Remarks This is a thin white male who is responsive , Lethargic,with a trach tube in place. HEENT: Pupils are equal and reactive to light. CHEST:Decreased breath sounds, with left basal crackles and Bilateral wheeze. CARDIOVASCULAR: S1 and S2 is normal.No murmur. ABDOMEN: Soft, nondistended. BS +. He has a PEG tube in place. EXTREMITIES: No edema.muscle wasting. NEURO: Awake and has weak extremities. Skin is cool. Assessment and Plan Assessment and Plan IMPRESSION 1. Chronic Respiratory failure. 2. Sepsis, Aspiration. 3. Left basal Pneumonia 4. Tracheobronchitis 5. Parkinson's disease 6. Dementia. 7. Severe Deconditioning. Plan : 1. Continue on Bipap 5/15, FIo2 35 % 2. Nebs Bid , duoneb. 3. Cont tube feeds Jevity at 35 CC 4. cont prednisone 2.5 mg daily. 5. Levsin .25 mg tid prn for Secretions 6. Cont Trach toilet and lavage. 8. Will go to T bar if stable in am 9. PT for activity/Postural drainage qid. 10. CBC,BMP . 11. Antibiotics per Darren Lu MD Dec 28, 2015 12:13
--- NOTE | 2015-12-28 14:28 | HHI.PR ---
Subjective Remarks Patient seen today in follow up for recurrent resp failure. No new events tolerating BiPap. Still some secretions. Objective Vitals Vital Signs Date Time Temp Pulse Resp B/P Pulse Ox O2 Delivery O2 Flow Rate FiO2 12/28/15 10:15 98 35 12/28/15 06:00 68 12/28/15 04:43 100 35 12/28/15 04:00 61 12/28/15 04:00 97.8 61 24 119/86 100 12/28/15 04:00 100 Bi-Pap 35 12/28/15 02:00 68 12/28/15 00:47 97 35 12/28/15 00:00 98.6 68 25 100/69 99 12/28/15 00:00 99 Bi-Pap 35 12/28/15 00:00 68 12/27/15 22:00 81 12/27/15 21:02 99 35 12/27/15 20:00 75 12/27/15 20:00 98.7 74 25 136/83 97 12/27/15 20:00 97 Bi-Pap 35 12/27/15 18:00 74 12/27/15 16:08 98 35 12/27/15 16:00 98.4 79 25 132/70 98 12/27/15 16:00 79 12/27/15 16:00 98 Bi-Pap 35 I/O 12/27/15 12/27/15 12/27/15 12/28/15 12/28/15 12/28/15 06:59 14:59 22:59 06:59 14:59 22:59 Intake Total 1428 ml 1769 ml 1133 ml 1324 ml Output Total 700 ml 1700 ml 1150 ml 1000 ml Balance 728 ml 69 ml -17 ml 324 ml IV Total 774 ml 1040 ml 621 ml 750 ml Tube Feeding 254 ml 329 ml 312 ml 254 ml Other 400 ml 400 ml 200 ml 320 ml Output Urine Total 700 ml 1700 ml 1150 ml 1000 ml # Bowel Movements 2 1 0 1 Result Diagram: 12/28/15 0644 Objective Remarks Sacral ulcer examined and appears unchanged from previous encounter, left shoulder dressing to prevent pressure sores. Currently clear skin GENERAL: This is a frail unresponsive male in no distress with tracheostomy and feeding tube CARDIOVASCULAR: Regular rate and rhythm without murmurs, gallops, or rubs. RESPIRATORY: Clear to auscultation. Breath sounds equal bilaterally. No wheezes , rales, or rhonchi. GASTROINTESTINAL: Abdomen soft, non-tender, nondistended. Normal active bowel sounds MUSCULOSKELETAL: Multiple contractures, right arm swelling NEURO: Eyes open, non-interactive Procedures 07/26- PEG replacement 07/29- right pigtail catheter placement for new pneumothorax Date of Insertion: Dec 16, 2015 A/P Problem List: (1) Sepsis due to urinary tract infection ICD Code: A41.9 Status: Resolved (2) Acute respiratory failure ICD Code: J96.00 Status: Resolved (3) Chronic respiratory failure ICD Code: J96.10 Status: Chronic (4) Parkinson disease ICD Code: G20 Status: Chronic (5) UTI (urinary tract infection) ICD Code: N39.0 Status: Acute (6) Encephalopathy ICD Code: G93.40 Status: Resolved Assessment and Plan Hospital day #193 for this unfortunate gentleman who has been admitted to the hospital after being found unresponsive in a snf facility. Patient has acute on chronic respiratory failure requiring tracheostomy and pulmonary has been managing this. He has Parkinson's disease which at baseline he is nonverbal and does not follow commands and has quite a few contractures. Continue medical treatment as tolerated for chronic respiratory failure. 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 Worsening respiratory failure,last CXR likely shows chronic aspiration changes, cont bipap, continue IV zosyn repeat CXR, follow up sputum (GNR pending) 2. TF at 35 ml/hr due to increased aspiration with elevated Rate recommended at 60 per Nutrition. May need a more dense formula. Will ask nutrition. Overall poor prognosis for meaningful recovery Felisha Naranjo MD Dec 28, 2015 14:28
--- NOTE | 2015-12-28 18:54 | HHI.IDPN ---
Subjective Subjective Remarks Patient known to me. Notes reviewed Temps ok On BIPAP CXR with new infiltrates BP good Antibiotics Zosyn Lines Peripheral IV with no e/o infection Past Medical History reviewed Allergies: Coded Allergies: *MDRO Multi-Drug Resistant Organism (Verified Adverse Reaction, Unknown, 12/01/15) ESBL E. coli (urine) - 02/19/2015; ESBL K. 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 Vital Signs Date Time Temp Pulse Resp B/P Pulse Ox O2 Delivery O2 Flow Rate FiO2 12/28/15 18:00 93 12/28/15 16:00 98 Bi-Pap 8.00 35 12/28/15 16:00 97.3 97 20 119/64 96 12/28/15 16:00 97 12/28/15 14:00 81 12/28/15 12:00 69 12/28/15 12:00 98 Bi-Pap 8.00 35 12/28/15 12:00 97.5 69 26 102/69 98 12/28/15 10:15 98 35 12/28/15 10:00 88 12/28/15 08:00 97.3 73 26 119/79 98 12/28/15 08:00 98 Bi-Pap 8.00 35 12/28/15 08:00 73 12/28/15 06:00 68 12/28/15 04:43 100 35 12/28/15 04:00 61 12/28/15 04:00 97.8 61 24 119/86 100 12/28/15 04:00 100 Bi-Pap 35 12/28/15 02:00 68 12/28/15 00:47 97 35 12/28/15 00:00 98.6 68 25 100/69 99 12/28/15 00:00 99 Bi-Pap 35 12/28/15 00:00 68 12/27/15 22:00 81 12/27/15 21:02 99 35 12/27/15 20:00 75 12/27/15 20:00 98.7 74 25 136/83 97 12/27/15 20:00 97 Bi-Pap 35 12/27/15 12/27/15 12/28/15 15:00 23:00 07:00 Intake Total 1769 ml 1133 ml 1324 ml Output Total 1700 ml 1150 ml 1000 ml Balance 69 ml -17 ml 324 ml IV Total 1040 ml 621 ml 750 ml Tube Feeding 329 ml 312 ml 254 ml Other 400 ml 200 ml 320 ml Output Urine Total 1700 ml 1150 ml 1000 ml # Bowel Movements 1 0 1 . Laboratory Tests Test 12/28/15 06:44 White Blood Count 9.6 TH/MM3 Red Blood Count 3.71 MIL/MM3 Hemoglobin 10.4 GM/DL Hematocrit 31.3 % Mean Corpuscular Volume 84.4 FL Mean Corpuscular Hemoglobin 27.9 PG Mean Corpuscular Hemoglobin 33.1 % Concent Red Cell Distribution Width 14.8 % Platelet Count 145 TH/MM3 Mean Platelet Volume 9.9 FL Neutrophils (%) (Auto) 70.1 % Lymphocytes (%) (Auto) 16.7 % Monocytes (%) (Auto) 6.2 % Eosinophils (%) (Auto) 6.2 % Basophils (%) (Auto) 0.8 % Neutrophils # (Auto) 6.7 TH/MM3 Lymphocytes # (Auto) 1.6 TH/MM3 Monocytes # (Auto) 0.6 TH/MM3 Eosinophils # (Auto) 0.6 TH/MM3 Basophils # (Auto) 0.1 TH/MM3 CBC Comment DIFF FINAL Differential Comment Microbiology Date/Time Procedure Status Source Growth 12/26/15 16:30 Gram Stain - Final Resulted Sputum Endotracheal 12/26/15 16:30 Sputum Culture - Preliminary Resulted Pseudomonas Species Gram Negative [facility] Abdomen X-Ray 12/07/15 0600 Signed Impressions: Service Date/Time: Monday, December 07, 2015 03:40 - CONCLUSION: No dilated loops of small or large bowel. Tai Jaquez MD Chest X-Ray 12/07/15 0000 Signed Impressions: Service Date/Time: Monday, December 07, 2015 03:34 - CONCLUSION: Right lung is clear. Slight improvement of interstitial infiltrates left mid and lower lung. Tai Jaquez MD Abdomen X-Ray 12/06/15 0000 Signed Impressions: Service Date/Time: Sunday, December 06, 2015 08:05 - CONCLUSION: No acute disease. Erlin Barajas MD Abdomen Ultrasound 12/06/15 0000 Signed Impressions: Service Date/Time: Sunday, December 06, 2015 17:42 - CONCLUSION: 1. The gallbladder is unremarkable with no evidence of cholelithiasis. 2. Simple cyst in the left kidney. 3. Mild pyelocaliectasis in the right kidney. Salazar Thurman MD Chest X-Ray 12/04/15 0600 Signed Impressions: Service Date/Time: Friday, December 04, 2015 03:50 - CONCLUSION: Interstitial densities in the right lung. Néstor Matamoros MD Chest X-Ray 11/28/15 0000 Signed Impressions: Service Date/Time: Saturday, November 28, 2015 00:21 - CONCLUSION: No acute cardiopulmonary disease. Eugene Schmid MD Abdomen X-Ray 11/26/15 0000 Signed Impressions: Service Date/Time: November 12:34 - CONCLUSION: 1. Nonobstructive bowel gas pattern. 2. Stable position of gastrostomy tube. Multiple surgical screws secure the proximal left femur. 3. No obvious pneumoperitoneum on the single projection provided. Scott Goode MD Upper Extremity Ultrasound 10/13/15 0000 Signed Impressions: Service Date/Time: Tuesday, October 13, 2015 09:51 - CONCLUSION: 1. No evidence of deep venous thrombosis. John Anderson MD Renal Ultrasound 10/07/15 0000 Signed Impressions: Service Date/Time: Wednesday, October 07, 2015 18:29 - CONCLUSION: 1. No acute findings. 3.6 cm left renal cyst. Putnam catheter in bladder. Amaury Ellsworth MD Tunnelled Chest Tube Removal 08/05/15 1100 Signed Impressions: Service Date/Time: Wednesday, August 05, 2015 11:00 - CONCLUSION: Uncomplicated chest tube removal. Blaine Jackson MD Chest Tube Change 07/31/15 0000 Signed Impressions: Service Date/Time: Friday, July 31, 2015 14:34 - CONCLUSION: Uncomplicated reposition of previously placed chest tube as above. Blaine Jackson MD Chest Tube Insertion 07/30/15 0000 Signed Impressions: Service Date/Time: July 14:50 - CONCLUSION: Uncomplicated chest tube placement as above. Blaine Jackson MD Catheter Change 07/27/15 0000 Signed Impressions: Service Date/Time: Monday, July 27, 2015 14:43 - CONCLUSION: Uncomplicated gastrostomy tube exchange as above. Blaine Jackson MD Chest CT 07/11/15 0000 Signed Impressions: Service Date/Time: Saturday, July 11, 2015 09:49 - CONCLUSION: Scattered patchy densities significantly improved from previous study. Tiny anterior right basilar pneumothorax. Right-sided chest tube in good position. Néstor Matamoros MD Head CT 06/18/151902 Signed Impressions: Service Date/Time: June 19:31 - CONCLUSION: Diffuse atrophy unchanged. No acute intracranial findings. Kush Briscoe MD Abdomen/Pelvis CT 06/18/151902 Signed Impressions: Service Date/Time: June 19:36 - CONCLUSION: 1. Chronic nonspecific urinary bladder wall thickening. Bladder collapsed with Putnam catheter in place. 2. Chronic bilateral mid to lower lung zone groundglass opacity. 3. Nonobstructing left renal calculus. 4. Distended rectum. Kush Briscoe MD Physical Exam GENERAL: No interaction, dyspneic. SKIN: Cool and moist. No generalized rash. HEENT: [place] conjunctivae, no icterus, moist mucosa. NECK: Trach site looks ok. Neck is supple RESPIRATORY: Coarse BS razia, with few rhonchi GASTROINTESTINAL: Abdomen soft, not distended. No guarding. PEG site looks okay. MUSCULOSKELETAL: No cyanosis No pedal edema. Contracted all 4 extremities. NEUROLOGICAL: Eyes open, Extremities contracted Peripheral IV line sites with no evidence of infection. ; Putnam in place, urine looks clear Assessment & Plan Remarks IMPRESSION Respiratory distress with new infiltartes on CXR - ?New PNA Sepsis/SIRS related to aspiration PNA?HCAP. Preceding events seem to be vomiting , ?aspiration, CXR now with some densisties on R - C/S with PSAE and Kleb ESBL+ - S/P Rx History of PSAE ESBL cath associated UTI. S/P Rx Leukocytosis, reactive due to current problem Previous C diff (+), no treated, improved - has had freq BM reported - will repeat if persistent and liquid Chronic respiratory failure on trach PSAE and ESBL Kleb in sputum in recent past. Chronic encephalopathy with underlying diagnosis of advanced dementia as well as advanced Parkinson's disease. Status post trach Status post gastrostomy tube with no evidence of infection. Stage II sacral decubitus ulcer present on admission. Intermittent vomiting Recurrent aspiration Recommendations Repeat CXR Repeat CBC Follow new Sputum G/S C/S Continue Zosyn Monitor progress. Trina Moss MD Dec 28, 2015 18:53
[2015-12-28] MEDS: OLANZapine 5 MG TAB GT SCH (19:56)
[2015-12-29] VITALS (16 sets, daily range): BP systolic 110–149; BP diastolic 75–95; PULSE 72–87; RESP 18–36; TEMP 97.2–98.7; O2SAT 96–100
[2015-12-29] MEDS: METOCLOPRAMIDE HCL 10 MG/2 ML VIAL IV PUSH SCH ×3 (02:33→17:27)
[2015-12-29] MEDS: PIPERACIL-TAZO 4.5 GM PREMIX 100 ML IV SCH ×4 (03:42→22:15)
[2015-12-29] MEDS: FREE WATER G-TUBE SCH ×6 (03:42→20:00)
--- NOTE | 2015-12-29 04:49 | RADRPT ---
EXAM DATE/TIME: 12/29/2015 03:27 [facility] COMPARISON: CHEST SINGLE AP, December 28, 2015, 3:42. INDICATIONS : Short of breath. MEDICAL HISTORY : Hypertension. Gastroesophageal reflux disease. Diabetes mellitus type II. SURGICAL HISTORY : Tracheostomy. ENCOUNTER: Subsequent ACUITY: 4 - 6 months PAIN SCORE: Non-responsive. LOCATION: Bilateral chest FINDINGS: There is a tracheostomy tube in place. The heart size is normal. There is mild increased density thro ughout the left lung and to a lesser degree the right upper lung. There is minimal blunting of the le ft costophrenic angle which may representing minimal left effusion. The right costophrenic angle is c lear. CONCLUSION: Mild patchy density being worse on the left. Erlin Barajas MD on December 29, 2015 at 4:45 Board Certified Radiologist. This report was verified electronically.
[2015-12-29] MEDS: clonazePAM 1 MG TAB PO SCH ×3 (05:49→22:15)
[2015-12-29] MEDS: CARBIDOPA/LEVODOPA 25 MG/100 MG TAB GT SCH ×3 (05:49→22:15)
[2015-12-29] MEDS: INSULIN NovoLIN REGULAR SUPPLEMENTAL SCALE SQ SCH ×4 (05:49→17:28)
[2015-12-29] MEDS: SODIUM CHLOR 0.9% 1000 ML INJ 1,000 ML IV SCH ×2 (05:50→17:27)
[2015-12-29] MEDS: CHLORHEXIDINE 0.12% (ORAL KIT) 15 ML CUP MT SCH ×2 (08:00→20:00)
[2015-12-29] MEDS: QUEtiapine FUMARATE 25 MG TAB G-TUBE SCH ×2 (09:36→21:53)
[2015-12-29] MEDS: PARoxetine HCL 20 MG TAB G-TUBE SCH (09:37)
[2015-12-29] MEDS: LANSOPRAZOLE SOLUTAB 30 MG TAB NG SCH (09:37)
[2015-12-29] MEDS: GABAPENTIN 300 MG CAP G-TUBE SCH ×2 (09:37→21:54)
[2015-12-29] MEDS: MIDODRINE 5 MG TAB G-TUBE SCH ×2 (09:37→21:54)
[2015-12-29] MEDS: POTASSIUM CHLORIDE 10 MEQ CAP G-TUBE SCH ×2 (09:37→21:54)
[2015-12-29] MEDS: predniSONE 5 MG TAB PO SCH (09:37)
[2015-12-29] MEDS: SODIUM CHLORIDE 0.9% FLUSH 5 ML FLUSH IVF SCH ×2 (09:37→21:00)
[2015-12-29] MEDS: LACTOBACILLUS ACIDOPHILUS TAB PO SCH ×3 (09:37→17:27)
[2015-12-29] MEDS: COLLAGENASE OINT 30 GM TUBE TOP SCH (09:39)
[2015-12-29] MEDS: ARTIFICIAL TEARS OPTH SOLN 15 ML BTL EACH EYE SCH ×3 (09:40→17:27)
--- NOTE | 2015-12-29 10:53 | HHI.PR ---
Subjective Remarks The pt appeared comfortable. Objective Vitals Vital Signs Date Time Temp Pulse Resp B/P Pulse Ox O2 Delivery O2 Flow Rate FiO2 12/29/15 06:00 75 12/29/15 04:07 100 35 12/29/15 04:00 99 Bi-Pap 8.00 35 12/29/15 04:00 83 12/29/15 04:00 97.2 83 36 149/95 99 12/29/15 02:00 79 12/29/15 00:56 97 35 12/29/15 00:00 98.3 87 32 124/87 97 12/29/15 00:00 87 12/29/15 00:00 97 Bi-Pap 8.00 35 12/28/15 22:00 84 12/28/15 20:39 98 35 12/28/15 20:00 97.6 83 27 133/92 98 12/28/15 20:00 83 12/28/15 20:00 98 Bi-Pap 8.00 35 12/28/15 18:00 93 12/28/15 16:00 98 Bi-Pap 8.00 35 12/28/15 16:00 97.3 97 20 119/64 96 12/28/15 16:00 97 12/28/15 14:00 81 12/28/15 12:00 69 12/28/15 12:00 98 Bi-Pap 8.00 35 12/28/15 12:00 97.5 69 26 102/69 98 I/O 12/28/15 12/28/15 12/28/15 12/29/15 12/29/15 12/29/15 06:59 14:59 22:59 06:59 14:59 22:59 Intake Total 1324 ml 940 ml 779 ml 721 ml Output Total 1000 ml 950 ml 1450 ml 1700 ml Balance 324 ml -10 ml -671 ml -979 ml IV Total 750 ml 427 ml 460 ml 488 ml Tube Feeding 254 ml 273 ml 319 ml 233 ml Other 320 ml 240 ml Output Urine Total 1000 ml 950 ml 1450 ml 1700 ml # Bowel Movements 1 3 1 1 Result Diagram: 12/28/15 0644 Imaging Last Impressions Chest X-Ray 12/29/15 06 Signed Impressions: Service Date/Time: Tuesday, December 29, 2015 03:27 - CONCLUSION: Mild patchy density being worse on the left. Erlin Barajas MD Abdomen X-Ray 12/07/15 0600 Signed Impressions: Service Date/Time: Monday, December 07, 2015 03:40 - CONCLUSION: No dilated loops of small or large bowel. Tai Jaquez MD Abdomen Ultrasound 12/06/15 0000 Signed Impressions: Service Date/Time: Sunday, December 06, 2015 17:42 - CONCLUSION: 1. The gallbladder is unremarkable with no evidence of cholelithiasis. 2. Simple cyst in the left kidney. 3. Mild pyelocaliectasis in the right kidney. Salazar Thurman MD Upper Extremity Ultrasound 10/13/15 0000 Signed Impressions: Service Date/Time: Tuesday, October 13, 2015 09:51 - CONCLUSION: 1. No evidence of deep venous thrombosis. John Anderson MD Renal Ultrasound 10/07/15 0000 Signed Impressions: Service Date/Time: Wednesday, October 07, 2015 18:29 - CONCLUSION: 1. No acute findings. 3.6 cm left renal cyst. Putnam catheter in bladder. Amaury Ellsworth MD Tunnelled Chest Tube Removal 08/05/15 1100 Signed Impressions: Service Date/Time: Wednesday, August 05, 2015 11:00 - CONCLUSION: Uncomplicated chest tube removal. Blaine Jackson MD Chest Tube Change 07/31/15 0000 Signed Impressions: Service Date/Time: Friday, July 31, 2015 14:34 - CONCLUSION: Uncomplicated reposition of previously placed chest tube as above. Blaine Jackson MD Chest Tube Insertion 07/30/15 0000 Signed Impressions: Service Date/Time: July 14:50 - CONCLUSION: Uncomplicated chest tube placement as above. Blaine Jackson MD Catheter Change 07/27/15 0000 Signed Impressions: Service Date/Time: Monday, July 27, 2015 14:43 - CONCLUSION: Uncomplicated gastrostomy tube exchange as above. Blaine Jackson MD Chest CT 07/11/15 0000 Signed Impressions: Service Date/Time: Saturday, July 11, 2015 09:49 - CONCLUSION: Scattered patchy densities significantly improved from previous study. Tiny anterior right basilar pneumothorax. Right-sided chest tube in good position. Néstor Matamoros MD Head CT [id number] Signed Impressions: Service Date/Time: June 19:31 - CONCLUSION: Diffuse atrophy unchanged. No acute intracranial findings. Kush Briscoe MD Abdomen/Pelvis CT 06/18/151902 Signed Impressions: Service Date/Time: June 19:36 - CONCLUSION: 1. Chronic nonspecific urinary bladder wall thickening. Bladder collapsed with Putnam catheter in place. 2. Chronic bilateral mid to lower lung zone groundglass opacity. 3. Nonobstructing left renal calculus. 4. Distended rectum. Kush Briscoe MD Objective Remarks GENERAL: Well-nourished, well-developed patient SKIN: Warm and dry. HEAD: Normocephalic. EYES: No scleral icterus. No injection or drainage. NECK: Trach in place. CARDIOVASCULAR: Regular rate and rhythm without murmurs, gallops, or rubs. RESPIRATORY: Decreased secretions. Moderate air entry. Scattered rhonchi. GASTROINTESTINAL: Abdomen soft, non-tender, nondistended. MUSCULOSKELETAL: No edema. Contractures and deformities of fingers. Stage III coccyx/sacral decubitus ulcer. NEURO: Unresponsive to voice, not following commands. Procedures 07/26- PEG replacement 07/29- right pigtail catheter placement for new pneumothorax Medications and IVs Current Medications Medications (Trade) Dose Ordered Sig/Jassi Route Start Time Stop Time Status Last Admin (NS Flush) 2 ml UNSCH PRN IVF 06/18/15 21:30 12/05/15 20:49 (NS Flush) 2 ml BID IVF 06/19/15 09:00 12/29/15 09:37 (Tylenol 650 Mg/ 20 ml Liq) 650 mg Q6H PRN TUBE 06/18/15 21:30 12/22/15 09:13 (Tears Naturale Opth Soln) 1 drop TID EACH EYE 06/19/15 09:00 12/29/15 09:40 (Zofran Inj) 4 mg Q6H PRN IV 06/18/15 21:30 11/26/15 11:54 (Sinemet 25-100 Mg) 1 tab Q8HR GT 06/19/15 06:00 12/29/15 05:49 (Neurontin) 300 mg BID G-TUBE 06/19/15 09:00 12/29/15 09:37 (Lactinex) 1 tab TID PO 06/19/15 09:00 12/29/15 09:37 (Paxil) 20 mg DAILY G-TUBE 06/19/15 09:00 12/29/15 09:37 (Pill Splitter) 1 ea UNSCH PRN OTHER 06/19/15 03:30 06/28/15 09:35 (Prevacid Odt) 30 mg DAILY NG 07/08/15 09:00 12/29/15 09:37 (KlonoPIN) 2 mg Q8HR PO 07/09/15 14:00 12/29/15 05:49 (SEROquel) 50 mg BID G-TUBE 07/18/15 09:00 12/29/15 09:36 (Morphine Inj) 2 mg Q3H PRN IV PUSH 07/28/15 00:45 12/17/15 14:48 (Peridex 0.12% Liq) 15 ml BID@08,20 MT 07/29/15 20:00 12/28/15 19:58 (Lovenox Inj) 40 mg Q24H SQ 08/09/15 22:00 Hold 12/05/15 20:49 ([place] 5-325 Mg) 1 tab Q6H PRN PO 08/15/15 15:45 12/21/15 09:08 (Sublimaze Inj) 50 mcg Q2H PRN IV PUSH 08/15/15 15:45 12/28/15 02:31 (ZyPREXA) 5 mg HS GT 08/15/15 21:00 12/28/15 19:56 (Santyl Oint) 1 applic DAILY TOP 08/21/15 09:00 12/29/15 09:39 (Levsin Liq) 0.125 mg Q4H PRN PO 09/06/15 11:00 12/27/15 20:27 (D50w (Vial) Inj) 25 ml UNSCH PRN IV PUSH 10/12/15 17:30 12/08/15 12:19 (Glucagon Inj) 1 mg UNSCH PRN OTHER 10/12/15 17:30 (NovoLIN R SUPPLEMENTAL SCALE) 1 Q6H SQ 10/12/15 18:00 12/26/15 12:40 (Proamatine) 2.5 mg BID G-TUBE 11/15/15 21:00 12/29/15 09:37 Water 200 ml 200 ml Q4HR G-TUBE 11/19/15 00:00 12/29/15 08:00 Potassium Chloride 100 ml @ 50 mls/hr Q2H PRN IV 11/28/15 13:30 12/03/15 08:10 (KCl 20 Meq Premix Inj) 100 ml @ 50 mls/hr Q2H PRN IV 11/28/15 13:30 11/30/15 12:14 Potassium Chloride 40 meq 40 meq UNSCH PRN PO/TUBE 11/28/15 13:30 Potassium Chloride 100 ml @ 25 mls/hr UNSCH PRN IV 11/28/15 13:30 Potassium Chloride 100 ml @ 50 mls/hr Q2H PRN IV 11/28/15 13:30 (Magnesium Sulfate Inj/NS Inj) 100 ml @ 50 mls/hr UNSCH PRN IV 11/28/15 13:30 Magnesium Oxide 800 mg 800 mg UNSCH PRN PO 11/28/15 13:30 (Magnesium Sulfate Inj/NS Inj) 100 ml @ 50 mls/hr UNSCH PRN IV 11/28/15 13:30 Potassium Phosphate 2000 mg 2,000 mg Q4H PRN PO 11/28/15 13:30 (Sodium Phosphate Inj/NS 250 ml Inj) 250 ml @ 42 mls/hr UNSCH PRN IV 11/28/15 13:30 (KCl 40 Meq/30 ml Liq) 40 meq UNSCH PRN PO/TUBE 11/28/15 13:30 Potassium Phosphate 2000 mg 2,000 mg UNSCH PRN PO/TUBE 11/28/15 13:30 (Potassium Phosphate Inj/NS 250 ml Inj) 260 ml @ 42 mls/hr UNSCH PRN IV 11/28/15 13:30 12/02/15 12:25 (KCl) 10 meq BID G-TUBE 12/03/15 21:00 12/29/15 09:37 (Brethine Inj) 1 mg UNSCH PRN SQ 12/06/15 06:45 (Reglan Inj) 5 mg Q8H IV PUSH 12/06/15 10:00 12/29/15 02:33 Lorazepam 1 mg 1 mg Q3HR PRN IVP 12/15/15 17:00 12/27/15 11:01 (NS 1000 ml Inj) 1,000 ml @ 100 mls/hr Q10H IV 12/16/15 18:00 12/29/15 05:50 Prednisone 2.5 mg 2.5 mg DAILY PO 12/23/15 09:00 12/29/15 09:37 Piperacillin Sod/ Tazobactam Sod 100 ml @ 200 mls/hr Q6H IV 12/26/15 16:00 12/29/15 03:42 (Diprivan 1000 Mg/100ml Inj) 100 ml @ 0 mls/hr TITRATE IV 12/26/15 23:15 Date of Insertion: Dec 16, 2015 A/P Problem List: (1) Sepsis due to urinary tract infection ICD Code: A41.9 Status: Resolved (2) Acute respiratory failure ICD Code: J96.00 Status: Resolved (3) Chronic respiratory failure ICD Code: J96.10 Status: Chronic (4) Parkinson disease ICD Code: G20 Status: Chronic (5) UTI (urinary tract infection) ICD Code: N39.0 Status: Acute (6) Encephalopathy ICD Code: G93.40 Status: Resolved Assessment and Plan Patient has acute on chronic respiratory failure requiring tracheostomy and pulmonary has been managing this. He has Parkinson's disease which at baseline he is nonverbal and does not follow commands and has quite a few contractures. Continue medical treatment as tolerated for chronic respiratory failure. Continue Levsin, bronchodilators and low-dose steroids lavage, BiPAP as needed 1. Worsening respiratory failure,last CXR likely shows chronic aspiration changes, cont bipap, continue IV zosyn repeat CXR, follow up sputum (GNR pending). Follow up with ID. 2. TF at 35 ml/hr due to increased aspiration with elevated Rate recommended at 60 per Nutrition. May need a more dense formula. Will ask nutrition. Overall poor prognosis for meaningful recovery PPx: Enoxaparin. Discharge Planning Awaiting clinical improvement. Salazar Santa DO Dec 29, 2015 10:53
--- NOTE | 2015-12-29 11:55 | HHI.PR ---
Subjective Remarks Awake and lethargic and 0n a T bar FIO2 35 % .Responds to some questions. On tube feeds at 35 CC. No fever . CXR with improved left lung infiltrate Objective Vital Signs Date Time Temp Pulse Resp B/P Pulse Ox O2 Delivery O2 Flow Rate FiO2 12/29/15 11:11 35 12/29/15 11:11 97 T-piece 35 12/29/15 06:00 75 12/29/15 04:07 100 35 12/29/15 04:00 99 Bi-Pap 8.00 35 12/29/15 04:00 83 12/29/15 04:00 97.2 83 36 149/95 99 12/29/15 02:00 79 12/29/15 00:56 97 35 12/29/15 00:00 98.3 87 32 124/87 97 12/29/15 00:00 87 12/29/15 00:00 97 Bi-Pap 8.00 35 12/28/15 22:00 84 12/28/15 20:39 98 35 12/28/15 20:00 97.6 83 27 133/92 98 12/28/15 20:00 83 12/28/15 20:00 98 Bi-Pap 8.00 35 12/28/15 18:00 93 12/28/15 16:00 98 Bi-Pap 8.00 35 12/28/15 16:00 97.3 97 20 119/64 96 12/28/15 16:00 97 12/28/15 14:00 81 12/28/15 12:00 69 12/28/15 12:00 98 Bi-Pap 8.00 35 12/28/15 12:00 97.5 69 26 102/69 98 I/O 12/28/15 12/28/15 12/28/15 12/29/15 12/29/15 12/29/15 06:59 14:59 22:59 06:59 14:59 22:59 Intake Total 1324 ml 940 ml 779 ml 721 ml Output Total 1000 ml 950 ml 1450 ml 1700 ml Balance 324 ml -10 ml -671 ml -979 ml IV Total 750 ml 427 ml 460 ml 488 ml Tube Feeding 254 ml 273 ml 319 ml 233 ml Other 320 ml 240 ml Output Urine Total 1000 ml 950 ml 1450 ml 1700 ml # Bowel Movements 1 3 1 1 Result Diagram: 12/28/15 0644 Objective Remarks This is a thin white male who is responsive , Lethargic,with a trach tube in place. HEENT: Pupils are equal and reactive to light. CHEST:Decreased breath sounds, with Bilateral wheeze. CARDIOVASCULAR: S1 and S2 is normal.No murmur. ABDOMEN: Soft, nondistended. BS +. He has a PEG tube in place. EXTREMITIES: No edema.muscle wasting. NEURO: Awake and has weak extremities. Skin is cool. Assessment and Plan Assessment and Plan IMPRESSION 1. Chronic Respiratory failure. 2. Sepsis, Aspiration. 3. Left basal Pneumonia 4. Tracheobronchitis 5. Parkinson's disease 6. Dementia. 7. Severe Deconditioning. Plan : 1. Continue on Bipap 5/15, FIo2 30 % at HS 2. Nebs Bid , duoneb. 3. Cont tube feeds Jevity at 35 CC 4. T Bar 35 % daytime. 5. Levsin .25 mg tid prn for Secretions 6. Cont Trach toilet and lavage. 8. No Sedation. 9. PT for activity/Postural drainage qid. 10. Keep on right side mostly. 11. Antibiotics per Darren Lu MD Dec 29, 2015 11:55
[2015-12-29] MEDS: OLANZapine 5 MG TAB GT SCH (21:53)
[2015-12-30] VITALS (15 sets, daily range): BP systolic 87–126; BP diastolic 59–99; PULSE 67–97; RESP 20–33; TEMP 97.4–98.7; O2SAT 96–100
[2015-12-30] MEDS: METOCLOPRAMIDE HCL 10 MG/2 ML VIAL IV PUSH SCH ×2 (02:00→10:00)
[2015-12-30] MEDS: FREE WATER G-TUBE SCH ×6 (04:00→20:00)
[2015-12-30] MEDS: SODIUM CHLOR 0.9% 1000 ML INJ 1,000 ML IV SCH ×3 (05:23→22:58)
[2015-12-30] MEDS: PIPERACIL-TAZO 4.5 GM PREMIX 100 ML IV SCH ×4 (05:23→22:56)
[2015-12-30] MEDS: INSULIN NovoLIN REGULAR SUPPLEMENTAL SCALE SQ SCH ×4 (06:00→17:48)
[2015-12-30] MEDS: clonazePAM 1 MG TAB PO SCH ×3 (06:14→22:57)
[2015-12-30] MEDS: CARBIDOPA/LEVODOPA 25 MG/100 MG TAB GT SCH ×3 (06:14→22:57)
[2015-12-30] MEDS: predniSONE 5 MG TAB PO SCH (08:49)
[2015-12-30] MEDS: LACTOBACILLUS ACIDOPHILUS TAB PO SCH ×3 (08:49→17:48)
[2015-12-30] MEDS: LANSOPRAZOLE SOLUTAB 30 MG TAB NG SCH (08:49)
[2015-12-30] MEDS: MIDODRINE 5 MG TAB G-TUBE SCH ×2 (08:49→22:56)
[2015-12-30] MEDS: POTASSIUM CHLORIDE 10 MEQ CAP G-TUBE SCH ×2 (08:49→22:57)
[2015-12-30] MEDS: PARoxetine HCL 20 MG TAB G-TUBE SCH (08:49)
[2015-12-30] MEDS: GABAPENTIN 300 MG CAP G-TUBE SCH ×2 (08:49→22:56)
[2015-12-30] MEDS: ARTIFICIAL TEARS OPTH SOLN 15 ML BTL EACH EYE SCH ×3 (08:50→17:48)
[2015-12-30] MEDS: QUEtiapine FUMARATE 25 MG TAB G-TUBE SCH ×2 (08:50→22:57)
[2015-12-30] MEDS: SODIUM CHLORIDE 0.9% FLUSH 5 ML FLUSH IVF SCH (08:50)
[2015-12-30] MEDS: CHLORHEXIDINE 0.12% (ORAL KIT) 15 ML CUP MT SCH ×2 (08:51→20:00)
[2015-12-30] MEDS: COLLAGENASE OINT 30 GM TUBE TOP SCH (08:53)
--- NOTE | 2015-12-30 17:23 | HHI.PR ---
Subjective Remarks The patient was being turned by nursing. Nursing had no acute concerns. The patient appeared slightly uncomfortable. Objective Vitals Vital Signs Date Time Temp Pulse Resp B/P Pulse Ox O2 Delivery O2 Flow Rate FiO2 12/30/15 14:00 72 12/30/15 12:00 98 T-Piece 8.00 40 12/30/15 12:00 69 12/30/15 12:00 97.4 69 20 87/59 98 12/30/15 10:00 82 12/30/15 08:32 98 T-piece 35 12/30/15 08:00 96 T-Piece 8.00 40 12/30/15 08:00 86 12/30/15 08:00 97.5 86 26 103/79 98 12/30/15 06:00 79 12/30/15 04:04 99 35 12/30/15 04:00 98.6 89 28 97/71 98 12/30/15 04:00 T-Piece 8.00 35 12/30/15 04:00 97 12/30/15 02:00 79 12/30/15 00:18 100 35 12/30/15 00:00 T-Piece 8.00 35 12/30/15 00:00 98.3 89 33 109/99 99 12/30/15 00:00 79 12/29/15 22:00 79 12/29/15 20:00 98.7 84 24 117/75 96 12/29/15 20:00 79 12/29/15 20:00 T-Piece 8.00 35 12/29/15 19:56 99 T-piece 35 12/29/15 18:00 72 I/O 12/29/15 12/29/15 12/29/15 12/30/15 12/30/15 12/30/15 07:00 15:00 23:00 07:00 15:00 23:00 Intake Total 721 ml 1422 ml 765 ml 997 ml 1762 ml Output Total 1700 ml 1800 ml 50 ml 1100 ml 250 ml Balance -979 ml -378 ml 715 ml -103 ml 1512 ml IV Total 488 ml 835 ml 730 ml 745 ml 891 ml Tube Feeding 233 ml 347 ml 35 ml 252 ml 271 ml Tube Irrigant 600 ml Other 240 ml Output Urine Total 1700 ml 1800 ml 50 ml 1100 ml 250 ml # Bowel Movements 1 4 3 3 Result Diagram: 12/28/15 0644 Imaging Last Impressions Chest X-Ray 12/29/15 0600 Signed Impressions: Service Date/Time: Tuesday, December 29, 2015 03:27 - CONCLUSION: Mild patchy density being worse on the left. Erlin Barajas MD Abdomen X-Ray 12/07/15 0600 Signed Impressions: Service Date/Time: Monday, December 07, 2015 03:40 - CONCLUSION: No dilated loops of small or large bowel. Tai Jaquez MD Abdomen Ultrasound 12/06/15 0000 Signed Impressions: Service Date/Time: Sunday, December 06, 2015 17:42 - CONCLUSION: 1. The gallbladder is unremarkable with no evidence of cholelithiasis. 2. Simple cyst in the left kidney. 3. Mild pyelocaliectasis in the right kidney. Salazar Thurman MD Upper Extremity Ultrasound 10/13/15 0000 Signed Impressions: Service Date/Time: Tuesday, October 13, 2015 09:51 - CONCLUSION: 1. No evidence of deep venous thrombosis. John Anderson MD Renal Ultrasound 10/07/15 0000 Signed Impressions: Service Date/Time: Wednesday, October 07, 2015 18:29 - CONCLUSION: 1. No acute findings. 3.6 cm left renal cyst. Putnam catheter in bladder. Amaury Ellsworth MD Tunnelled Chest Tube Removal 08/05/15 1100 Signed Impressions: Service Date/Time: Wednesday, August 05, 2015 11:00 - CONCLUSION: Uncomplicated chest tube removal. Blaine Jackson MD Chest Tube Change 07/31/15 0000 Signed Impressions: Service Date/Time: Friday, July 31, 2015 14:34 - CONCLUSION: Uncomplicated reposition of previously placed chest tube as above. Blaine Jackson MD Chest Tube Insertion 07/30/15 0000 Signed Impressions: Service Date/Time: July 14:50 - CONCLUSION: Uncomplicated chest tube placement as above. Blaine Jackson MD Catheter Change 07/27/15 0000 Signed Impressions: Service Date/Time: Monday, July 27, 2015 14:43 - CONCLUSION: Uncomplicated gastrostomy tube exchange as above. Blaine Jackson MD Chest CT 07/11/15 0000 Signed Impressions: Service Date/Time: Saturday, July 11, 2015 09:49 - CONCLUSION: Scattered patchy densities significantly improved from previous study. Tiny anterior right basilar pneumothorax. Right-sided chest tube in good position. Néstor Matamoros MD Head CT 06/18/151902 Signed Impressions: Service Date/Time: June 19:31 - CONCLUSION: Diffuse atrophy unchanged. No acute intracranial findings. Kush Briscoe MD Abdomen/Pelvis CT 06/18/151902 Signed Impressions: Service Date/Time: June 19:36 - CONCLUSION: 1. Chronic nonspecific urinary bladder wall thickening. Bladder collapsed with Putnam catheter in place. 2. Chronic bilateral mid to lower lung zone groundglass opacity. 3. Nonobstructing left renal calculus. 4. Distended rectum. Kush Briscoe MD Objective Remarks GENERAL: Well-nourished, well-developed patient SKIN: Warm and dry. HEAD: Normocephalic. EYES: No scleral icterus. No injection or drainage. NECK: Trach in place. CARDIOVASCULAR: Regular rate and rhythm without murmurs, gallops, or rubs. RESPIRATORY: Decreased secretions. Moderate air entry. Scattered rhonchi. GASTROINTESTINAL: Abdomen soft, non-tender, nondistended. MUSCULOSKELETAL: No edema. Contractures and deformities of fingers. Stage III coccyx/sacral decubitus ulcer. NEURO: Unresponsive to voice, not following commands. Procedures 07/26- PEG replacement 07/29- right pigtail catheter placement for new pneumothorax Medications and IVs Current Medications Medications (Trade) Dose Ordered Sig/Jassi Route Start Time Stop Time Status Last Admin (NS Flush) 2 ml UNSCH PRN IVF 06/18/15 21:30 12/05/15 20:49 (NS Flush) 2 ml BID IVF 06/19/15 09:00 12/30/15 08:50 (Tylenol 650 Mg/ 20 ml Liq) 650 mg Q6H PRN TUBE 06/18/15 21:30 12/22/15 09:13 (Tears Naturale Opth Soln) 1 drop TID EACH EYE 06/19/15 09:00 12/30/15 12:25 (Zofran Inj) 4 mg Q6H PRN IV 06/18/15 21:30 11/26/15 11:54 (Sinemet 25-100 Mg) 1 tab Q8HR GT 06/19/15 06:00 12/30/15 12:25 (Neurontin) 300 mg BID G-TUBE 06/19/15 09:00 12/30/15 08:49 (Lactinex) 1 tab TID PO 06/19/15 09:00 12/30/15 12:25 (Paxil) 20 mg DAILY G-TUBE 06/19/15 09:00 12/30/15 08:49 (Pill Splitter) 1 ea UNSCH PRN OTHER 06/19/15 03:30 06/28/15 09:35 (Prevacid Odt) 30 mg DAILY NG 07/08/15 09:00 12/30/15 08:49 (KlonoPIN) 2 mg Q8HR PO 07/09/15 14:00 12/30/15 12:25 (SEROquel) 50 mg BID G-TUBE 07/18/15 09:00 12/30/15 08:50 (Morphine Inj) 2 mg Q3H PRN IV PUSH 07/28/15 00:45 12/17/15 14:48 (Peridex 0.12% Liq) 15 ml BID@08,20 MT 07/29/15 20:00 12/30/15 08:51 (Lovenox Inj) 40 mg Q24H SQ 08/09/15 22:00 Hold 12/05/15 20:49 ([place] 5-325 Mg) 1 tab Q6H PRN PO 08/15/15 15:45 12/21/15 09:08 (Sublimaze Inj) 50 mcg Q2H PRN IV PUSH 08/15/15 15:45 12/28/15 02:31 (ZyPREXA) 5 mg HS GT 08/15/15 21:00 12/29/15 21:53 (Santyl Oint) 1 applic DAILY TOP 08/21/15 09:00 12/30/15 08:53 (Levsin Liq) 0.125 mg Q4H PRN PO 09/06/15 11:00 12/27/15 20:27 (D50w (Vial) Inj) 25 ml UNSCH PRN IV PUSH 10/12/15 17:30 12/08/15 12:19 (Glucagon Inj) 1 mg UNSCH PRN OTHER 9/5/16 17:30 (NovoLIN R SUPPLEMENTAL SCALE) 1 Q6H SQ 10/12/15 18:00 12/29/15 13:27 (Proamatine) 2.5 mg BID G-TUBE 11/15/15 21:00 12/30/15 08:49 Water 200 ml 200 ml Q4HR G-TUBE 11/19/15 00:00 12/30/15 15:52 Potassium Chloride 100 ml @ 50 mls/hr Q2H PRN IV 11/28/15 13:30 12/03/15 08:10 (KCl 20 Meq Premix Inj) 100 ml @ 50 mls/hr Q2H PRN IV 11/28/15 13:30 11/30/15 12:14 Potassium Chloride 40 meq 40 meq UNSCH PRN PO/TUBE 11/28/15 13:30 Potassium Chloride 100 ml @ 25 mls/hr UNSCH PRN IV 11/28/15 13:30 Potassium Chloride 100 ml @ 50 mls/hr Q2H PRN IV 11/28/15 13:30 (Magnesium Sulfate Inj/NS Inj) 100 ml @ 50 mls/hr UNSCH PRN IV 11/28/15 13:30 Magnesium Oxide 800 mg 800 mg UNSCH PRN PO 11/28/15 13:30 (Magnesium Sulfate Inj/NS Inj) 100 ml @ 50 mls/hr UNSCH PRN IV 11/28/15 13:30 Potassium Phosphate 2000 mg 2,000 mg Q4H PRN PO 11/28/15 13:30 (Sodium Phosphate Inj/NS 250 ml Inj) 250 ml @ 42 mls/hr UNSCH PRN IV 11/28/15 13:30 (KCl 40 Meq/30 ml Liq) 40 meq UNSCH PRN PO/TUBE 11/28/15 13:30 Potassium Phosphate 2000 mg 2,000 mg UNSCH PRN PO/TUBE 11/28/15 13:30 (Potassium Phosphate Inj/NS 250 ml Inj) 260 ml @ 42 mls/hr UNSCH PRN IV 11/28/15 13:30 12/02/15 12:25 (KCl) 10 meq BID G-TUBE 12/03/15 21:00 12/30/15 08:49 (Brethine Inj) 1 mg UNSCH PRN SQ 12/06/15 06:45 (Reglan Inj) 5 mg Q8H IV PUSH 12/06/15 10:00 12/29/15 17:27 Lorazepam 1 mg 1 mg Q3HR PRN IVP 12/15/15 17:00 12/27/15 11:01 (NS 1000 ml Inj) 1,000 ml @ 100 mls/hr Q10H IV 12/16/15 18:00 12/30/15 12:26 Prednisone 2.5 mg 2.5 mg DAILY PO 12/23/15 09:00 12/30/15 08:49 Piperacillin Sod/ Tazobactam Sod 100 ml @ 200 mls/hr Q6H IV 12/26/15 16:00 12/30/15 15:52 (Diprivan 1000 Mg/100ml Inj) 100 ml @ 0 mls/hr TITRATE IV 12/26/15 23:15 Date of Insertion: Dec 16, 2015 A/P Problem List: (1) Sepsis due to urinary tract infection ICD Code: A41.9 Status: Resolved (2) Acute respiratory failure ICD Code: J96.00 Status: Resolved (3) Chronic respiratory failure ICD Code: J96.10 Status: Chronic (4) Parkinson disease ICD Code: G20 Status: Chronic (5) UTI (urinary tract infection) ICD Code: N39.0 Status: Acute (6) Encephalopathy ICD Code: G93.40 Status: Resolved Assessment and Plan S/P Sepsis shock Recurrent Aspiration. - Infectious disease following. Continue Zosyn. Chronic respiratory failure- BiPAP at night. Chronic tracheostomy S/P recurrent Right pneumothorax status post pigtail catheter removal Suction secretions Duo nebs 4 times a day and when necessary. S/p colistin nebs and Solumedrol. Appreciate pulmonology following, Dr. Car Bipap at hs . 40% T piece daytime per pulmonology. Metabolic Encephalopathy - chronic Parkinson's disease Cognitive disorder/Underlying dementia Depression CT head 06/18/15: - diffuse atrophy unchanged. No acute intracranial findings Continue cognitive and pain meds. Malnutrition/protein calorie - moderate Status post PEG Hemorrhoids Gastroesophageal reflux disease Concern for hematemesis 12/05. GI evaluated pt. Gastroccult was negative and hemoglobin has been stable - TF restarted at 35 ml/hr as has problems with recurrent aspiration. - Current Colace/senna for bowel regimen. - continue PPI.- Prevacid Bilateral lower extremity Contractures Stage II DU - Wound care following - Continue physical therapy GI prophylaxis: PPI. Stool softener PRN constipation. DVT PPx: Lovenox Discharge Planning Awaiting clinical improvement. Salazar Santa DO Dec 30, 2015 17:23
--- NOTE | 2015-12-30 18:33 | HHI.PR ---
Subjective Remarks Awake and lethargic and 0n a T bar FIO2 35 % On tube feeds at 35 CC. No new change CXR with improved left lung infiltrate Objective Vital Signs Date Time Temp Pulse Resp B/P Pulse Ox O2 Delivery O2 Flow Rate FiO2 12/30/15 18:00 67 12/30/15 16:00 95 12/30/15 16:00 97.4 95 30 126/59 100 12/30/15 16:00 100 T-Piece 8.00 40 12/30/15 14:00 72 12/30/15 12:00 98 T-Piece 8.00 40 12/30/15 12:00 69 12/30/15 12:00 97.4 69 20 87/59 98 12/30/15 10:00 82 12/30/15 08:32 98 T-piece 35 12/30/15 08:00 96 T-Piece 8.00 40 12/30/15 08:00 86 12/30/15 08:00 97.5 86 26 103/79 98 12/30/15 06:00 79 12/30/15 04:04 99 35 12/30/15 04:00 98.6 89 28 97/71 98 12/30/15 04:00 T-Piece 8.00 35 12/30/15 04:00 97 12/30/15 02:00 79 12/30/15 00:18 100 35 12/30/15 00:00 T-Piece 8.00 35 12/30/15 00:00 98.3 89 33 109/99 99 12/30/15 00:00 79 12/29/15 22:00 79 12/29/15 20:00 98.7 84 24 117/75 96 12/29/15 20:00 79 12/29/15 20:00 T-Piece 8.00 35 12/29/15 19:56 99 T-piece 35 I/O 12/29/15 12/29/15 12/29/15 12/30/15 12/30/15 12/30/15 06:59 14:59 22:59 06:59 14:59 22:59 Intake Total 721 ml 1422 ml 765 ml 997 ml 1762 ml Output Total 1700 ml 1800 ml 50 ml 1100 ml 250 ml Balance -979 ml -378 ml 715 ml -103 ml 1512 ml IV Total 488 ml 835 ml 730 ml 745 ml 891 ml Tube Feeding 233 ml 347 ml 35 ml 252 ml 271 ml Tube Irrigant 600 ml Other 240 ml Output Urine Total 1700 ml 1800 ml 50 ml 1100 ml 250 ml # Bowel Movements 1 4 3 3 Result Diagram: 12/28/15 0644 Objective Remarks This is a thin white male who is responsive , Lethargic,with a trach tube in place. HEENT: Pupils are equal and reactive to light. CHEST:Decreased breath sounds, with Bilateral wheeze.Occ Crackles CARDIOVASCULAR: S1 and S2 is normal.No murmur. ABDOMEN: Soft, nondistended. BS +. He has a PEG tube in place. EXTREMITIES: No edema.muscle wasting. NEURO: Awake and has weak extremities. Skin is cool. Assessment and Plan Assessment and Plan IMPRESSION 1. Chronic Respiratory failure. 2. Sepsis, Aspiration. 3. Left basal Pneumonia 4. Tracheobronchitis 5. Parkinson's disease 6. Dementia. 7. Severe Deconditioning. Plan : 1. Continue on Bipap 5/15, FIo2 30 % at HS 2. Nebs Bid , duoneb. 3. Cont tube feeds Jevity at 35 CC 4. T Bar 40 % daytime. 5. Levsin .25 mg tid prn for Secretions 6. Cont Trach toilet and lavage. 8. CBC,BMP in am 9. PT for activity/Postural drainage qid. 10. Keep on right side mostly. 11. D/C Antibiotics per Darren Lu MD Dec 30, 2015 18:33
[2015-12-30] MEDS: OLANZapine 5 MG TAB GT SCH (22:57)
[2015-12-31] VITALS (14 sets, daily range): BP systolic 100–119; BP diastolic 59–82; PULSE 65–89; RESP 14–31; TEMP 97.7–98.8; O2SAT 8–100
[2015-12-31] MEDS: FREE WATER G-TUBE SCH ×7 (04:00→23:52)
[2015-12-31] MEDS: INSULIN NovoLIN REGULAR SUPPLEMENTAL SCALE SQ SCH ×5 (06:00→23:52)
[2015-12-31] MEDS: PIPERACIL-TAZO 4.5 GM PREMIX 100 ML IV SCH ×4 (06:38→22:55)
[2015-12-31] MEDS: CARBIDOPA/LEVODOPA 25 MG/100 MG TAB GT SCH ×3 (06:38→22:55)
[2015-12-31] MEDS: clonazePAM 1 MG TAB PO SCH ×3 (06:38→22:55)
[2015-12-31] MEDS: COLLAGENASE OINT 30 GM TUBE TOP SCH (09:00)
[2015-12-31] MEDS: SODIUM CHLORIDE 0.9% FLUSH 5 ML FLUSH IVF SCH ×2 (09:00→20:10)
[2015-12-31] MEDS: POTASSIUM CHLORIDE 10 MEQ CAP G-TUBE SCH ×2 (09:07→20:09)
[2015-12-31] MEDS: PARoxetine HCL 20 MG TAB G-TUBE SCH (09:07)
[2015-12-31] MEDS: GABAPENTIN 300 MG CAP G-TUBE SCH ×2 (09:07→20:09)
[2015-12-31] MEDS: QUEtiapine FUMARATE 25 MG TAB G-TUBE SCH ×2 (09:07→20:09)
[2015-12-31] MEDS: ARTIFICIAL TEARS OPTH SOLN 15 ML BTL EACH EYE SCH ×3 (09:08→17:24)
[2015-12-31] MEDS: SODIUM CHLOR 0.9% 1000 ML INJ 1,000 ML IV SCH ×2 (09:08→17:24)
[2015-12-31] MEDS: CHLORHEXIDINE 0.12% (ORAL KIT) 15 ML CUP MT SCH ×2 (09:08→20:09)
[2015-12-31] MEDS: LANSOPRAZOLE SOLUTAB 30 MG TAB NG SCH (09:08)
[2015-12-31] MEDS: LACTOBACILLUS ACIDOPHILUS TAB PO SCH ×3 (09:08→17:24)
[2015-12-31] MEDS: predniSONE 5 MG TAB PO SCH (09:08)
[2015-12-31] MEDS: MIDODRINE 5 MG TAB G-TUBE SCH ×2 (09:08→20:09)
--- NOTE | 2015-12-31 13:42 | HHI.PR ---
Subjective Remarks The pt was resting comfortably. No acute events reported. Discussed with nursing. Objective Vitals Vital Signs Date Time Temp Pulse Resp B/P Pulse Ox O2 Delivery O2 Flow Rate FiO2 12/31/15 12:00 99 T-Piece 8.00 40 12/31/15 12:00 80 12/31/15 12:00 97.9 80 31 99 12/31/15 10:00 79 12/31/15 08:00 100 T-Piece 8.00 40 12/31/15 08:00 97.7 77 26 100/69 98 12/31/15 08:00 77 12/31/15 06:00 65 12/31/15 04:00 65 12/31/15 04:00 98.8 65 14 96 12/31/15 02:00 89 12/31/15 00:00 T-Piece 35 12/31/15 00:00 97.7 89 18 100/69 96 12/31/15 00:00 89 12/30/15 21:00 100 T-piece 6.00 35 12/30/15 20:00 96 12/30/15 20:00 T-Piece 8.00 40 12/30/15 20:00 98.7 96 24 106/71 96 12/30/15 18:00 67 12/30/15 16:00 95 12/30/15 16:00 97.4 95 30 126/59 100 12/30/15 16:00 100 T-Piece 8.00 40 12/30/15 14:00 72 I/O 12/30/15 12/30/15 12/30/15 12/31/15 12/31/15 12/31/15 07:00 15:00 23:00 07:00 15:00 23:00 Intake Total 997 ml 1762 ml 1649 ml 1736 ml Output Total 1100 ml 250 ml 850 ml 750 ml Balance -103 ml 1512 ml 799 ml 986 ml IV Total 745 ml 891 ml 949 ml 1101 ml Tube Feeding 252 ml 271 ml 300 ml 285 ml Tube Irrigant 600 ml 400 ml 350 ml Output Urine Total 1100 ml 250 ml 850 ml 750 ml # Bowel Movements 3 3 2 3 Result Diagram: 12/28/15 06 Imaging Last Impressions Chest X-Ray 12/29/15 06 Signed Impressions: Service Date/Time: Tuesday, December 29, 2015 03:27 - CONCLUSION: Mild patchy density being worse on the left. Erlin Barajas MD Abdomen X-Ray 12/07/15 0600 Signed Impressions: Service Date/Time: Monday, December 07, 2015 03:40 - CONCLUSION: No dilated loops of small or large bowel. Tai Jaquez MD Abdomen Ultrasound 12/06/15 0000 Signed Impressions: Service Date/Time: Sunday, December 06, 2015 17:42 - CONCLUSION: 1. The gallbladder is unremarkable with no evidence of cholelithiasis. 2. Simple cyst in the left kidney. 3. Mild pyelocaliectasis in the right kidney. Salazar Thurman MD Upper Extremity Ultrasound 10/13/15 0000 Signed Impressions: Service Date/Time: Tuesday, October 13, 2015 09:51 - CONCLUSION: 1. No evidence of deep venous thrombosis. John Anderson MD Renal Ultrasound 10/07/15 0000 Signed Impressions: Service Date/Time: Wednesday, October 07, 2015 18:29 - CONCLUSION: 1. No acute findings. 3.6 cm left renal cyst. Putnam catheter in bladder. Amaury Ellsworth MD Tunnelled Chest Tube Removal 08/05/15 1100 Signed Impressions: Service Date/Time: Wednesday, August 05, 2015 11:00 - CONCLUSION: Uncomplicated chest tube removal. Blaine Jackson MD Chest Tube Change 07/31/15 0000 Signed Impressions: Service Date/Time: Friday, July 31, 2015 14:34 - CONCLUSION: Uncomplicated reposition of previously placed chest tube as above. Blaine Jackson MD Chest Tube Insertion 07/30/15 0000 Signed Impressions: Service Date/Time: July 14:50 - CONCLUSION: Uncomplicated chest tube placement as above. Blaine Jackson MD Catheter Change 07/27/15 0000 Signed Impressions: Service Date/Time: Monday, July 27, 2015 14:43 - CONCLUSION: Uncomplicated gastrostomy tube exchange as above. Blaine Jackson MD Chest CT 07/11/15 0000 Signed Impressions: Service Date/Time: Saturday, July 11, 2015 09:49 - CONCLUSION: Scattered patchy densities significantly improved from previous study. Tiny anterior right basilar pneumothorax. Right-sided chest tube in good position. Néstor Matamoros MD Head CT 06/18/151902 Signed Impressions: Service Date/Time: June 19:31 - CONCLUSION: Diffuse atrophy unchanged. No acute intracranial findings. Kush Briscoe MD Abdomen/Pelvis CT 06/18/151902 Signed Impressions: Service Date/Time: June 19:36 - CONCLUSION: 1. Chronic nonspecific urinary bladder wall thickening. Bladder collapsed with Putnam catheter in place. 2. Chronic bilateral mid to lower lung zone groundglass opacity. 3. Nonobstructing left renal calculus. 4. Distended rectum. Kush Briscoe MD Objective Remarks GENERAL: Well-nourished, well-developed patient SKIN: Warm and dry. HEAD: Normocephalic. EYES: No scleral icterus. No injection or drainage. NECK: Trach in place. CARDIOVASCULAR: Regular rate and rhythm without murmurs, gallops, or rubs. RESPIRATORY: Decreased secretions. Moderate air entry. Scattered rhonchi. GASTROINTESTINAL: Abdomen soft, non-tender, nondistended. MUSCULOSKELETAL: No edema. Contractures and deformities of fingers. Stage III coccyx/sacral decubitus ulcer. NEURO: Unresponsive to voice, not following commands. Procedures 07/26- PEG replacement 07/29- right pigtail catheter placement for new pneumothorax Medications and IVs Current Medications Medications (Trade) Dose Ordered Sig/Jassi Route Start Time Stop Time Status Last Admin (NS Flush) 2 ml UNSCH PRN IVF 06/18/15 21:30 12/05/15 20:49 (NS Flush) 2 ml BID IVF 06/19/15 09:00 12/30/15 08:50 (Tylenol 650 Mg/ 20 ml Liq) 650 mg Q6H PRN TUBE 06/18/15 21:30 12/22/15 09:13 (Tears Naturale Opth Soln) 1 drop TID EACH EYE 06/19/15 09:00 12/31/15 12:23 (Zofran Inj) 4 mg Q6H PRN IV 06/18/15 21:30 11/26/15 11:54 (Sinemet 25-100 Mg) 1 tab Q8HR GT 06/19/15 06:00 12/31/15 12:23 (Neurontin) 300 mg BID G-TUBE 06/19/15 09:00 12/31/15 09:07 (Lactinex) 1 tab TID PO 06/19/15 09:00 12/31/15 12:23 (Paxil) 20 mg DAILY G-TUBE 06/19/15 09:00 12/31/15 09:07 (Pill Splitter) 1 ea UNSCH PRN OTHER 06/19/15 03:30 06/28/15 09:35 (Prevacid Odt) 30 mg DAILY NG 07/08/15 09:00 12/31/15 09:08 (KlonoPIN) 2 mg Q8HR PO 07/09/15 14:00 12/31/15 12:23 (SEROquel) 50 mg BID G-TUBE 07/18/15 09:00 12/31/15 09:07 (Morphine Inj) 2 mg Q3H PRN IV PUSH 07/28/15 00:45 12/17/15 14:48 (Peridex 0.12% Liq) 15 ml BID@08,20 MT 07/29/15 20:00 12/31/15 09:08 (Lovenox Inj) 40 mg Q24H SQ 08/09/15 22:00 Hold 12/05/15 20:49 ([place] 5-325 Mg) 1 tab Q6H PRN PO 08/15/15 15:45 12/21/15 09:08 (Sublimaze Inj) 50 mcg Q2H PRN IV PUSH 08/15/15 15:45 12/28/15 02:31 (ZyPREXA) 5 mg HS GT 08/15/15 21:00 12/30/15 22:57 (Santyl Oint) 1 applic DAILY TOP 08/21/15 09:00 12/31/15 09:00 (Levsin Liq) 0.125 mg Q4H PRN PO 09/06/15 11:00 12/27/15 20:27 (D50w (Vial) Inj) 25 ml UNSCH PRN IV PUSH 10/12/15 17:30 12/08/15 12:19 (Glucagon Inj) 1 mg UNSCH PRN OTHER 10/12/15 17:30 (NovoLIN R SUPPLEMENTAL SCALE) 1 Q6H SQ 10/12/15 18:00 12/29/15 13:27 (Proamatine) 2.5 mg BID G-TUBE 11/15/15 21:00 12/31/15 09:08 Water 200 ml 200 ml Q4HR G-TUBE 11/19/15 00:00 12/31/15 12:00 Potassium Chloride 100 ml @ 50 mls/hr Q2H PRN IV 11/28/15 13:30 12/03/15 08:10 (KCl 20 Meq Premix Inj) 100 ml @ 50 mls/hr Q2H PRN IV 11/28/15 13:30 11/30/15 12:14 Potassium Chloride 40 meq 40 meq UNSCH PRN PO/TUBE 11/28/15 13:30 Potassium Chloride 100 ml @ 25 mls/hr UNSCH PRN IV 11/28/15 13:30 Potassium Chloride 100 ml @ 50 mls/hr Q2H PRN IV 11/28/15 13:30 (Magnesium Sulfate Inj/NS Inj) 100 ml @ 50 mls/hr UNSCH PRN IV 11/28/15 13:30 Magnesium Oxide 800 mg 800 mg UNSCH PRN PO 11/28/15 13:30 (Magnesium Sulfate Inj/NS Inj) 100 ml @ 50 mls/hr UNSCH PRN IV 11/28/15 13:30 Potassium Phosphate 2000 mg 2,000 mg Q4H PRN PO 11/28/15 13:30 (Sodium Phosphate Inj/NS 250 ml Inj) 250 ml @ 42 mls/hr UNSCH PRN IV 11/28/15 13:30 (KCl 40 Meq/30 ml Liq) 40 meq UNSCH PRN PO/TUBE 11/28/15 13:30 Potassium Phosphate 2000 mg 2,000 mg UNSCH PRN PO/TUBE 11/28/15 13:30 (Potassium Phosphate Inj/NS 250 ml Inj) 260 ml @ 42 mls/hr UNSCH PRN IV 11/28/15 13:30 12/02/15 12:25 (KCl) 10 meq BID G-TUBE 12/03/15 21:00 12/31/15 09:07 (Brethine Inj) 1 mg UNSCH PRN SQ 12/06/15 06:45 Lorazepam 1 mg 1 mg Q3HR PRN IVP 12/15/15 17:00 12/27/15 11:01 (NS 1000 ml Inj) 1,000 ml @ 100 mls/hr Q10H IV 12/16/15 18:00 11/24/16 09:08 Prednisone 2.5 mg 2.5 mg DAILY PO 12/23/15 09:00 12/31/15 09:08 Piperacillin Sod/ Tazobactam Sod 100 ml @ 200 mls/hr Q6H IV 12/26/15 16:00 12/31/15 09:12 (Diprivan 1000 Mg/100ml Inj) 100 ml @ 0 mls/hr TITRATE IV 12/26/15 23:15 Date of Insertion: Dec 16, 2015 A/P Problem List: (1) Sepsis due to urinary tract infection ICD Code: A41.9 Status: Resolved (2) Acute respiratory failure ICD Code: J96.00 Status: Resolved (3) Chronic respiratory failure ICD Code: J96.10 Status: Chronic (4) Parkinson disease ICD Code: G20 Status: Chronic (5) UTI (urinary tract infection) ICD Code: N39.0 Status: Acute (6) Encephalopathy ICD Code: G93.40 Status: Resolved Assessment and Plan S/P Sepsis shock Recurrent Aspiration. - Infectious disease following. Continue Zosyn. Chronic respiratory failure- BiPAP at night. Chronic tracheostomy S/P recurrent Right pneumothorax status post pigtail catheter removal Suction secretions Duo nebs 4 times a day and when necessary. S/p colistin nebs and Solumedrol. Appreciate pulmonology following, Dr. Josep Daniels at hs . 40% T piece daytime per pulmonology. Metabolic Encephalopathy - chronic Parkinson's disease Cognitive disorder/Underlying dementia Depression CT head 06/18/15: - diffuse atrophy unchanged. No acute intracranial findings Continue cognitive and pain meds. Malnutrition/protein calorie - moderate Status post PEG Hemorrhoids Gastroesophageal reflux disease Concern for hematemesis 12/05. GI evaluated pt. Gastroccult was negative and hemoglobin has been stable - TF restarted at 35 ml/hr as has problems with recurrent aspiration. - Current Colace/senna for bowel regimen. - continue PPI.- Prevacid Bilateral lower extremity Contractures Stage II DU - Wound care following - Continue physical therapy GI prophylaxis: PPI. Stool softener PRN constipation. DVT PPx: Lovenox Discharge Planning Awaiting clinical improvement. Salazar Santa DO Dec 31, 2015 13:42
--- NOTE | 2015-12-31 14:07 | HHI.PR ---
Subjective Remarks Awake and lethargic and 0n a T bar FIO2 35 % . Sat 99 On tube feeds at 35 CC. No new change CXR with improved left lung infiltrate Objective Vital Signs Date Time Temp Pulse Resp B/P Pulse Ox O2 Delivery O2 Flow Rate FiO2 12/31/15 12:00 99 T-Piece 8.00 40 12/31/15 12:00 80 12/31/15 12:00 97.9 80 31 99 12/31/15 10:00 79 12/31/15 08:00 100 T-Piece 8.00 40 12/31/15 08:00 97.7 77 26 100/69 98 12/31/15 08:00 77 12/31/15 06:00 65 12/31/15 04:00 65 12/31/15 04:00 98.8 65 14 96 12/31/15 02:00 89 12/31/15 00:00 T-Piece 35 12/31/15 00:00 97.7 89 18 100/69 96 12/31/15 00:00 89 12/30/15 21:00 100 T-piece 6.00 35 12/30/15 20:00 96 12/30/15 20:00 T-Piece 8.00 40 12/30/15 20:00 98.7 96 24 106/71 96 12/30/15 18:00 67 12/30/15 16:00 95 12/30/15 16:00 97.4 95 30 126/59 100 12/30/15 16:00 100 T-Piece 8.00 40 I/O 12/30/15 12/30/15 12/30/15 12/31/15 12/31/15 12/31/15 07:00 15:00 23:00 07:00 15:00 23:00 Intake Total 997 ml 1762 ml 1649 ml 1736 ml Output Total 1100 ml 250 ml 850 ml 750 ml Balance -103 ml 1512 ml 799 ml 986 ml IV Total 745 ml 891 ml 949 ml 1101 ml Tube Feeding 252 ml 271 ml 300 ml 285 ml Tube Irrigant 600 ml 400 ml 350 ml Output Urine Total 1100 ml 250 ml 850 ml 750 ml # Bowel Movements 3 3 2 3 Result Diagram: 12/28/15 0644 Objective Remarks This is a thin white male who is , Lethargic,with a trach tube in place. HEENT: Pupils are equal and reactive to light. CHEST:Decreased breath sounds, with Bilateral wheeze.Occ basal Crackles CARDIOVASCULAR: S1 and S2 is normal.No murmur. ABDOMEN: Soft, nondistended. BS +. He has a PEG tube in place. EXTREMITIES: No edema.muscle wasting. NEURO: Awake and has weak extremities. Skin is cool. Assessment and Plan Assessment and Plan IMPRESSION 1. Chronic Respiratory failure. 2. Sepsis, Aspiration. 3. Left basal Pneumonia 4. Tracheobronchitis 5. Parkinson's disease 6. Dementia. 7. Severe Deconditioning. Plan : 1. Continue on Bipap 5/15, FIo2 35 % at HS 2. Nebs Bid , duoneb. 3. Cont tube feeds Jevity at 35 CC 4. T Bar 40 % daytime. 5. Levsin .25 mg tid prn for Secretions 6. Cont Trach toilet and lavage. 8. Trach lavage and suction 9. PT for activity/Postural drainage qid. 10. Keep on right side mostly. Darren Kiser MD Dec 31, 2015 14:07
[2015-12-31] MEDS: OLANZapine 5 MG TAB GT SCH (20:10)
[2015-12-31] MEDS: LORazepam 2 MG/ML VIAL IVP PRN (21:00)
[2016-01-01] VITALS (15 sets, daily range): BP systolic 94–125; BP diastolic 7–81; PULSE 65–142; RESP 20–26; TEMP 97.3–98.1; O2SAT 95–100
[2016-01-01] MEDS: LORazepam 2 MG/ML VIAL IVP PRN ×3 (02:29→13:52)
[2016-01-01] MEDS: SODIUM CHLOR 0.9% 1000 ML INJ 1,000 ML IV SCH ×2 (04:00→13:53)
[2016-01-01] MEDS: FREE WATER G-TUBE SCH ×5 (04:00→20:00)
[2016-01-01] MEDS: MORPHINE SULFATE 4 MG/ML INJ IV PUSH PRN (04:04)
[2016-01-01] MEDS: PIPERACIL-TAZO 4.5 GM PREMIX 100 ML IV SCH ×4 (04:06→21:26)
[2016-01-01] MEDS: INSULIN NovoLIN REGULAR SUPPLEMENTAL SCALE SQ SCH ×4 (06:00→23:54)
[2016-01-01] MEDS: CARBIDOPA/LEVODOPA 25 MG/100 MG TAB GT SCH ×3 (06:08→21:27)
[2016-01-01] MEDS: clonazePAM 1 MG TAB PO SCH ×3 (06:09→21:27)
[2016-01-01] MEDS: CHLORHEXIDINE 0.12% (ORAL KIT) 15 ML CUP MT SCH ×2 (08:00→20:00)
[2016-01-01] MEDS: ACETAMINOPHEN/HYDROcodone 325 MG/5 MG TAB PO PRN ×3 (08:59→21:28)
[2016-01-01] MEDS: POTASSIUM CHLORIDE 10 MEQ CAP G-TUBE SCH ×2 (09:00→21:27)
[2016-01-01] MEDS: PARoxetine HCL 20 MG TAB G-TUBE SCH (09:00)
[2016-01-01] MEDS: SODIUM CHLORIDE 0.9% FLUSH 5 ML FLUSH IVF SCH ×2 (09:00→21:00)
[2016-01-01] MEDS: QUEtiapine FUMARATE 25 MG TAB G-TUBE SCH ×2 (09:00→21:27)
[2016-01-01] MEDS: MIDODRINE 5 MG TAB G-TUBE SCH ×2 (09:00→21:28)
[2016-01-01] MEDS: LACTOBACILLUS ACIDOPHILUS TAB PO SCH ×3 (09:00→18:00)
[2016-01-01] MEDS: COLLAGENASE OINT 30 GM TUBE TOP SCH (09:00)
[2016-01-01] MEDS: predniSONE 5 MG TAB PO SCH (09:01)
[2016-01-01] MEDS: LANSOPRAZOLE SOLUTAB 30 MG TAB NG SCH (09:01)
[2016-01-01] MEDS: ARTIFICIAL TEARS OPTH SOLN 15 ML BTL EACH EYE SCH ×3 (09:01→18:00)
[2016-01-01] MEDS: GABAPENTIN 300 MG CAP G-TUBE SCH ×2 (09:01→21:27)
--- NOTE | 2016-01-01 13:41 | HHI.PR ---
Subjective Remarks Awake and lethargic and 0n a T bar FIO2 40 % . Sat 97 On tube feeds at 35 CC. No new change. No fever. Objective Vital Signs Date Time Temp Pulse Resp B/P Pulse Ox O2 Delivery O2 Flow Rate FiO2 01/01/16 12:00 98.0 86 21 99/61 99 01/01/16 12:00 97 T-Piece 8.00 40 01/01/16 12:00 80 01/01/16 10:00 67 01/01/16 08:00 97.9 65 26 104/65 98 01/01/16 08:00 97 T-Piece 8.00 40 01/01/16 08:00 69 01/01/16 06:00 67 01/01/16 04:00 97 T-Piece 8.00 40 01/01/16 04:00 142 01/01/16 04:00 98.1 142 25 125/81 97 01/01/16 02:00 79 01/01/16 00:00 69 01/01/16 00:00 97.9 69 21 94/57 97 01/01/16 00:00 97 T-Piece 8.00 40 12/31/15 22:00 76 12/31/15 21:35 98 T-piece 5.00 28 12/31/15 20:00 100 T-Piece 8.00 40 12/31/15 20:00 68 12/31/15 20:00 98.0 68 24 119/82 100 12/31/15 18:00 67 12/31/15 16:00 97.7 76 22 102/59 98 12/31/15 16:00 98 T-Piece 8.00 40 12/31/15 16:00 76 12/31/15 14:00 79 I/O 12/31/15 12/31/15 12/31/15 01/01/16 01/01/16 01/01/16 07:00 15:00 23:00 07:00 15:00 23:00 Intake Total 1736 ml 1548 ml 1768 ml 1624 ml Output Total 750 ml 1150 ml 2000 ml 1350 ml Balance 986 ml 398 ml -232 ml 274 ml IV Total 1101 ml 728 ml 924 ml 806 ml Tube Feeding 285 ml 220 ml 244 ml 218 ml Tube Irrigant 350 ml 600 ml 600 ml 600 ml Output Urine Total 750 ml 1150 ml 2000 ml 1350 ml # Bowel Movements 3 3 2 2 Result Diagram: 12/28/15 0644 Objective Remarks This is a thin white male who is , Lethargic,with a trach tube in place. HEENT: Pupils are equal and reactive to light. CHEST:Decreased breath sounds, with Bilateral wheeze.Occ basal Crackles with wheeze. CARDIOVASCULAR: S1 and S2 is normal.No murmur. ABDOMEN: Soft, nondistended. BS +. He has a PEG tube in place. EXTREMITIES: Contractures.muscle wasting. NEURO: Awake and has weak extremities. Skin is cool. Assessment and Plan Assessment and Plan IMPRESSION 1. Chronic Respiratory failure. 2. Sepsis, Aspiration. 3. Left basal Pneumonia 4. Tracheobronchitis 5. Parkinson's disease 6. Dementia. 7. Severe Deconditioning. Plan : 1. Continue on Bipap /, FIo2 35 % at HS 2. Nebs Bid , duoneb. 3. Cont tube feeds Jevity at 35 CC 4. T Bar 40 % daytime. 5. Levsin .25 mg tid prn for Secretions 6. Cont Trach toilet and lavage. 8. Transfer to tele. 9. PT for activity/Postural drainage qid. 10. CBC,BMP. Darren Kiser MD Jan 01, 2016 13:41
--- NOTE | 2016-01-01 13:52 | HHI.IDPN ---
Note Infectious Disease Note Chart reviewed No fevers WBC normal. d/w : change position as often as possible. DC antibiotics in am. Will sign off please call back if any change in clinical condition. to cover this weekend. Trina Moss MD Jan 01, 2016 13:52
--- NOTE | 2016-01-01 16:42 | HHI.PR ---
Subjective Remarks The pt was resting comfortably. No concerns from nursing. Objective Vitals Vital Signs Date Time Temp Pulse Resp B/P Pulse Ox O2 Delivery O2 Flow Rate FiO2 01/01/16 16:00 97 T-Piece 8.00 40 01/01/16 16:00 76 01/01/16 14:00 85 01/01/16 12:00 98.0 86 21 99/61 99 01/01/16 12:00 97 T-Piece 8.00 40 01/01/16 12:00 80 01/01/16 10:00 67 01/01/16 08:00 97.9 65 26 104/65 98 01/01/16 08:00 97 T-Piece 8.00 40 01/01/16 08:00 69 01/01/16 06:00 67 01/01/16 04:00 97 T-Piece 8.00 40 01/01/16 04:00 142 01/01/16 04:00 98.1 142 25 125/81 97 01/01/16 02:00 79 01/01/16 00:00 69 01/01/16 00:00 97.9 69 21 94/57 97 01/01/16 00:00 97 T-Piece 8.00 40 12/31/15 22:00 76 12/31/15 21:35 98 T-piece 5.00 28 12/31/15 20:00 100 T-Piece 8.00 40 12/31/15 20:00 68 12/31/15 20:00 98.0 68 24 119/82 100 12/31/15 18:00 67 I/O 12/31/15 12/31/15 12/31/15 01/01/16 01/01/16 01/01/16 07:00 15:00 23:00 07:00 15:00 23:00 Intake Total 1736 ml 1548 ml 1768 ml 1624 ml 850 ml Output Total 750 ml 1150 ml 2000 ml 1350 ml 1200 ml Balance 986 ml 398 ml -232 ml 274 ml -350 ml IV Total 1101 ml 728 ml 924 ml 806 ml 600 ml Tube Feeding 285 ml 220 ml 244 ml 218 ml 0 ml Tube Irrigant 350 ml 600 ml 600 ml 600 ml 50 ml Other 200 ml Output Urine Total 750 ml 1150 ml 2000 ml 1350 ml 1200 ml # Bowel Movements 3 3 2 2 Result Diagram: 12/28/15 0644 Imaging Last Impressions Chest X-Ray 12/29/15 0600 Signed Impressions: Service Date/Time: Tuesday, December 29, 2015 03:27 - CONCLUSION: Mild patchy density being worse on the left. Erlin Barajas MD Abdomen X-Ray 12/07/15 0600 Signed Impressions: Service Date/Time: Monday, December 07, 2015 03:40 - CONCLUSION: No dilated loops of small or large bowel. Tai Jaquez MD Abdomen Ultrasound 12/06/15 0000 Signed Impressions: Service Date/Time: Sunday, December 06, 2015 17:42 - CONCLUSION: 1. The gallbladder is unremarkable with no evidence of cholelithiasis. 2. Simple cyst in the left kidney. 3. Mild pyelocaliectasis in the right kidney. Salazar Thurman MD Upper Extremity Ultrasound 10/13/15 0000 Signed Impressions: Service Date/Time: Tuesday, October 13, 2015 09:51 - CONCLUSION: 1. No evidence of deep venous thrombosis. John Anderson MD Renal Ultrasound 10/07/15 0000 Signed Impressions: Service Date/Time: Wednesday, October 07, 2015 18:29 - CONCLUSION: 1. No acute findings. 3.6 cm left renal cyst. Putnam catheter in bladder. Amaury Ellsworth MD Tunnelled Chest Tube Removal 08/05/15 1100 Signed Impressions: Service Date/Time: Wednesday, August 05, 2015 11:00 - CONCLUSION: Uncomplicated chest tube removal. Blaine Jackson MD Chest Tube Change 07/31/15 0000 Signed Impressions: Service Date/Time: Friday, July 31, 2015 14:34 - CONCLUSION: Uncomplicated reposition of previously placed chest tube as above. Blaine Jackson MD Chest Tube Insertion 07/30/15 0000 Signed Impressions: Service Date/Time: July 14:50 - CONCLUSION: Uncomplicated chest tube placement as above. Blaine Jackson MD Catheter Change 07/27/15 0000 Signed Impressions: Service Date/Time: Monday, July 27, 2015 14:43 - CONCLUSION: Uncomplicated gastrostomy tube exchange as above. Blaine Jackson MD Chest CT 07/11/15 0000 Signed Impressions: Service Date/Time: Saturday, July 11, 2015 09:49 - CONCLUSION: Scattered patchy densities significantly improved from previous study. Tiny anterior right basilar pneumothorax. Right-sided chest tube in good position. Néstor Matamoros MD Head CT 06/18/151902 Signed Impressions: Service Date/Time: June 19:31 - CONCLUSION: Diffuse atrophy unchanged. No acute intracranial findings. Kush Briscoe MD Abdomen/Pelvis CT 06/18/151902 Signed Impressions: Service Date/Time: June 19:36 - CONCLUSION: 1. Chronic nonspecific urinary bladder wall thickening. Bladder collapsed with Putnam catheter in place. 2. Chronic bilateral mid to lower lung zone groundglass opacity. 3. Nonobstructing left renal calculus. 4. Distended rectum. Kush Briscoe MD Objective Remarks GENERAL: Well-nourished, well-developed patient SKIN: Warm and dry. HEAD: Normocephalic. EYES: No scleral icterus. No injection or drainage. NECK: Trach in place. CARDIOVASCULAR: Regular rate and rhythm without murmurs, gallops, or rubs. RESPIRATORY: Decreased secretions. Moderate air entry. Scattered rhonchi. GASTROINTESTINAL: Abdomen soft, non-tender, nondistended. MUSCULOSKELETAL: No edema. Contractures and deformities of fingers. Stage III coccyx/sacral decubitus ulcer. NEURO: Unresponsive to voice, not following commands. Procedures 07/26- PEG replacement 07/29- right pigtail catheter placement for new pneumothorax Medications and IVs Current Medications Medications (Trade) Dose Ordered Sig/Jassi Route Start Time Stop Time Status Last Admin (NS Flush) 2 ml UNSCH PRN IVF 06/18/15 21:30 12/05/15 20:49 (NS Flush) 2 ml BID IVF 06/19/15 09:00 01/01/16 09:00 (Tylenol 650 Mg/ 20 ml Liq) 650 mg Q6H PRN TUBE 06/18/15 21:30 12/22/15 09:13 (Tears Naturale Opth Soln) 1 drop TID EACH EYE 06/19/15 09:00 01/01/16 13:00 (Zofran Inj) 4 mg Q6H PRN IV 06/18/15 21:30 11/26/15 11:54 (Sinemet 25-100 Mg) 1 tab Q8HR GT 06/19/15 06:00 01/01/16 13:53 (Neurontin) 300 mg BID G-TUBE 06/19/15 09:00 01/01/16 09:01 (Lactinex) 1 tab TID PO 06/19/15 09:00 01/01/16 13:53 (Paxil) 20 mg DAILY G-TUBE 06/19/15 09:00 01/01/16 09:00 (Pill Splitter) 1 ea UNSCH PRN OTHER 06/19/15 03:30 06/28/15 09:35 (Prevacid Odt) 30 mg DAILY NG 07/08/15 09:00 01/01/16 09:01 (KlonoPIN) 2 mg Q8HR PO 07/09/15 14:00 01/01/16 13:53 (SEROquel) 50 mg BID G-TUBE 07/18/15 09:00 01/01/16 09:00 (Morphine Inj) 2 mg Q3H PRN IV PUSH 07/28/15 00:45 01/01/16 04:04 (Peridex 0.12% Liq) 15 ml BID@08,20 MT 07/29/15 20:00 01/01/16 08:00 (Lovenox Inj) 40 mg Q24H SQ 08/09/15 22:00 Hold 12/05/15 20:49 ([place] 5-325 Mg) 1 tab Q6H PRN PO 08/15/15 15:45 01/01/16 13:52 (Sublimaze Inj) 50 mcg Q2H PRN IV PUSH 08/15/15 15:45 12/28/15 02:31 (ZyPREXA) 5 mg HS GT 08/15/15 21:00 12/31/15 20:10 (Santyl Oint) 1 applic DAILY TOP 08/21/15 09:00 01/01/16 09:00 (Levsin Liq) 0.125 mg Q4H PRN PO 09/06/15 11:00 12/27/15 20:27 (D50w (Vial) Inj) 25 ml UNSCH PRN IV PUSH 10/12/15 17:30 12/08/15 12:19 (Glucagon Inj) 1 mg UNSCH PRN OTHER 10/12/15 17:30 (NovoLIN R SUPPLEMENTAL SCALE) 1 Q6H SQ 10/12/15 18:00 12/29/15 13:27 (Proamatine) 2.5 mg BID G-TUBE 11/15/15 21:00 01/01/16 09:00 Water 200 ml 200 ml Q4HR G-TUBE 11/19/15 00:00 01/01/16 13:54 Potassium Chloride 100 ml @ 50 mls/hr Q2H PRN IV 11/28/15 13:30 12/03/15 08:10 (KCl 20 Meq Premix Inj) 100 ml @ 50 mls/hr Q2H PRN IV 11/28/15 13:30 11/30/15 12:14 Potassium Chloride 40 meq 40 meq UNSCH PRN PO/TUBE 11/28/15 13:30 Potassium Chloride 100 ml @ 25 mls/hr UNSCH PRN IV 11/28/15 13:30 Potassium Chloride 100 ml @ 50 mls/hr Q2H PRN IV 11/28/15 13:30 (Magnesium Sulfate Inj/NS Inj) 100 ml @ 50 mls/hr UNSCH PRN IV 11/28/15 13:30 Magnesium Oxide 800 mg 800 mg UNSCH PRN PO 11/28/15 13:30 (Magnesium Sulfate Inj/NS Inj) 100 ml @ 50 mls/hr UNSCH PRN IV 11/28/15 13:30 Potassium Phosphate 2000 mg 2,000 mg Q4H PRN PO 11/28/15 13:30 (Sodium Phosphate Inj/NS 250 ml Inj) 250 ml @ 42 mls/hr UNSCH PRN IV 11/28/15 13:30 (KCl 40 Meq/30 ml Liq) 40 meq UNSCH PRN PO/TUBE 11/28/15 13:30 Potassium Phosphate 2000 mg 2,000 mg UNSCH PRN PO/TUBE 11/28/15 13:30 (Potassium Phosphate Inj/NS 250 ml Inj) 260 ml @ 42 mls/hr UNSCH PRN IV 11/28/15 13:30 12/02/15 12:25 (KCl) 10 meq BID G-TUBE 12/03/15 21:00 01/01/16 09:00 (Brethine Inj) 1 mg UNSCH PRN SQ 12/06/15 06:45 Lorazepam 1 mg 1 mg Q3HR PRN IVP 12/15/15 17:00 01/01/16 13:52 (NS 1000 ml Inj) 1,000 ml @ 100 mls/hr Q10H IV 12/16/15 18:00 01/01/16 13:53 Prednisone 2.5 mg 2.5 mg DAILY PO 12/23/15 09:00 01/01/16 09:01 Piperacillin Sod/ Tazobactam Sod 100 ml @ 200 mls/hr Q6H IV 12/26/15 16:00 01/02/16 15:59 01/01/16 09:01 (Diprivan 1000 Mg/100ml Inj) 100 ml @ 0 mls/hr TITRATE IV 12/26/15 23:15 Date of Insertion: Dec 16, 2015 A/P Problem List: (1) Sepsis due to urinary tract infection ICD Code: A41.9 Status: Resolved (2) Acute respiratory failure ICD Code: J96.00 Status: Resolved (3) Chronic respiratory failure ICD Code: J96.10 Status: Chronic (4) Parkinson disease ICD Code: G20 Status: Chronic (5) UTI (urinary tract infection) ICD Code: N39.0 Status: Acute (6) Encephalopathy ICD Code: G93.40 Status: Resolved Assessment and Plan S/P Sepsis shock Recurrent Aspiration. - Infectious disease following. Continue Zosyn. D/c 01/01. Chronic respiratory failure- BiPAP at night. Chronic tracheostomy S/P recurrent Right pneumothorax status post pigtail catheter removal Suction secretions Duo nebs 4 times a day and when necessary. S/p colistin nebs and Solumedrol. Appreciate pulmonology following, Dr. Josep Daniels at . 40% T piece daytime per pulmonology. Metabolic Encephalopathy - chronic Parkinson's disease Cognitive disorder/Underlying dementia Depression CT head 06/18/15: - diffuse atrophy unchanged. No acute intracranial findings Continue cognitive and pain meds. Malnutrition/protein calorie - moderate Status post PEG Hemorrhoids Gastroesophageal reflux disease Concern for hematemesis 12/05. GI evaluated pt. Gastroccult was negative and hemoglobin has been stable - TF restarted at 35 ml/hr as has problems with recurrent aspiration. - Current Colace/senna for bowel regimen. - continue PPI.- Prevacid Bilateral lower extremity Contractures Stage II DU - Wound care following - Continue physical therapy GI prophylaxis: PPI. Stool softener PRN constipation. DVT PPx: Lovenox Discharge Planning Awaiting clinical improvement. Salazar Santa DO Jan 01, 2016 16:42
[2016-01-01] MEDS: OLANZapine 5 MG TAB GT SCH (21:27)
[2016-01-02] VITALS (16 sets, daily range): BP systolic 93–117; BP diastolic 58–75; PULSE 69–85; RESP 20–31; TEMP 97.2–98.7; O2SAT 97–100
[2016-01-02] MEDS: FREE WATER G-TUBE SCH ×6 (00:18→20:00)
[2016-01-02] MEDS: SODIUM CHLOR 0.9% 1000 ML INJ 1,000 ML IV SCH ×3 (00:30→20:26)
[2016-01-02] MEDS: LORazepam 2 MG/ML VIAL IVP PRN ×4 (02:03→17:35)
[2016-01-02] MEDS: PIPERACIL-TAZO 4.5 GM PREMIX 100 ML IV SCH ×2 (04:02→10:33)
[2016-01-02] MEDS: clonazePAM 1 MG TAB PO SCH ×2 (05:36→13:51)
[2016-01-02] MEDS: CARBIDOPA/LEVODOPA 25 MG/100 MG TAB GT SCH ×2 (05:36→13:51)
[2016-01-02 05:47] LABS: BASOPHIL # 0.1 TH/MM3 (0-0.2); BASOPHIL % 0.6 % (0.0-2.0); EOSINOPHIL # 0.2 TH/MM3 (0-0.4); EOSINOPHIL % 2.4 % (0.0-4.0); HEMATOCRIT 30.9 % (39.0-51.0); HEMO FLAGS DIFF FINAL; LYMPH % 18.9 % (9.0-44.0); LYMPHOCYTE # 1.9 TH/MM3 (1.0-4.8); MEAN CELL VOLUME 85.7 FL (80.0-100.0); MEAN CORPUSCULAR HEMOGLOBIN 28.4 PG (27.0-34.0); MEAN CORPUSCULAR HGB CONC 33.2 % (32.0-36.0); NEUT % 69.1 % (16.0-70.0); PLATELET COUNT 187 TH/MM3 (150-450); RED CELL DISTRIBUTION WIDTH 15.2 % (11.6-17.2); WHITE BLOOD COUNT 10.1 TH/MM3 (4.0-11.0)
[2016-01-02 05:51] LABS: POTASSIUM 4.1 MEQ/L (3.5-5.1)
[2016-01-02] MEDS: INSULIN NovoLIN REGULAR SUPPLEMENTAL SCALE SQ SCH ×3 (06:00→18:00)
[2016-01-02] MEDS: CHLORHEXIDINE 0.12% (ORAL KIT) 15 ML CUP MT SCH ×2 (08:00→20:26)
[2016-01-02] MEDS: GABAPENTIN 300 MG CAP G-TUBE SCH ×2 (08:17→20:25)
[2016-01-02] MEDS: PARoxetine HCL 20 MG TAB G-TUBE SCH (08:17)
[2016-01-02] MEDS: POTASSIUM CHLORIDE 10 MEQ CAP G-TUBE SCH ×2 (08:17→20:25)
[2016-01-02] MEDS: LACTOBACILLUS ACIDOPHILUS TAB PO SCH ×3 (08:17→17:35)
[2016-01-02] MEDS: LANSOPRAZOLE SOLUTAB 30 MG TAB NG SCH (08:17)
[2016-01-02] MEDS: MIDODRINE 5 MG TAB G-TUBE SCH ×2 (08:18→20:25)
[2016-01-02] MEDS: QUEtiapine FUMARATE 25 MG TAB G-TUBE SCH ×2 (08:18→20:26)
[2016-01-02] MEDS: ARTIFICIAL TEARS OPTH SOLN 15 ML BTL EACH EYE SCH ×3 (08:19→17:34)
[2016-01-02] MEDS: SODIUM CHLORIDE 0.9% FLUSH 5 ML FLUSH IVF SCH ×2 (08:19→21:00)
[2016-01-02] MEDS: predniSONE 5 MG TAB PO SCH (08:19)
[2016-01-02] MEDS: COLLAGENASE OINT 30 GM TUBE TOP SCH (08:20)
--- NOTE | 2016-01-02 15:30 | HHI.PR ---
Subjective Remarks The patient's eyes were open but he was not communicating or tracking. Discussed with nursing, no concerns. Tolerating tube feeds. Objective Vitals Vital Signs Date Time Temp Pulse Resp B/P Pulse Ox O2 Delivery O2 Flow Rate FiO2 01/02/16 14:00 74 01/02/16 12:00 73 01/02/16 12:00 98 T-Piece 30 01/02/16 12:00 98.6 73 21 100/58 98 01/02/16 10:00 84 01/02/16 09:35 100 T-piece 35 01/02/16 08:00 81 01/02/16 08:00 97 Bi-Pap 30 01/02/16 08:00 98.2 80 27 110/70 98 01/02/16 06:00 75 01/02/16 04:27 98 35 01/02/16 04:00 97.2 85 31 115/75 97 01/02/16 04:00 97 Bi-Pap 30 01/02/16 04:00 85 01/02/16 02:15 71 01/02/16 00:19 98 35 01/02/16 00:00 77 01/02/16 00:00 99 Bi-Pap 30 01/02/16 00:00 97.5 80 20 93/59 98 01/01/16 22:30 81 01/01/16 22:00 95 Bi-Pap 30 01/01/16 21:55 95 35 01/01/16 20:00 70 01/01/16 20:00 97 T-Piece 8.00 40 01/01/16 20:00 98.0 82 24 105/61 100 01/01/16 19:52 99 T-piece 6.00 28 01/01/16 18:00 67 01/01/16 16:00 97.3 76 20 97/59 01/01/16 16:00 97 T-Piece 8.00 40 01/01/16 16:00 76 I/O 01/01/16 01/01/16 01/01/16 01/02/16 01/02/16 01/02/16 07:00 15:00 23:00 07:00 15:00 23:00 Intake Total 1624 ml 850 ml 2556 ml 1494 ml 1731 ml Output Total 1350 ml 1200 ml 2400 ml 1300 ml 1750 ml Balance 274 ml -350 ml 156 ml 194 ml -19 ml Intake Oral 0 ml 0 ml IV Total 806 ml 600 ml 1706 ml 756 ml 988 ml Tube Feeding 218 ml 0 ml 550 ml 238 ml 293 ml Tube Irrigant 600 ml 50 ml Other 200 ml 300 ml 500 ml 450 ml Output Urine Total 1350 ml 1200 ml 2400 ml 1300 ml 1750 ml Gastric Drainage Total 0 ml # Bowel Movements 2 1 2 Result Diagram: 01/02/1645101/02/16451 Imaging Last Impressions Chest X-Ray 12/29/15599 Signed Impressions: Service Date/Time: Tuesday, December 29, 2015 03:27 - CONCLUSION: Mild patchy density being worse on the left. Erlin Barajas MD Abdomen X-Ray 12/07/15 06 Signed Impressions: Service Date/Time: Monday, December 07, 2015 03:40 - CONCLUSION: No dilated loops of small or large bowel. Tai Jaquez MD Abdomen Ultrasound 12/06/15 0000 Signed Impressions: Service Date/Time: Sunday, December 06, 2015 17:42 - CONCLUSION: 1. The gallbladder is unremarkable with no evidence of cholelithiasis. 2. Simple cyst in the left kidney. 3. Mild pyelocaliectasis in the right kidney. Salazar Thurman MD Upper Extremity Ultrasound 10/13/15 0000 Signed Impressions: Service Date/Time: Tuesday, October 13, 2015 09:51 - CONCLUSION: 1. No evidence of deep venous thrombosis. John Anderson MD Renal Ultrasound 10/07/15 0000 Signed Impressions: Service Date/Time: Wednesday, October 07, 2015 18:29 - CONCLUSION: 1. No acute findings. 3.6 cm left renal cyst. Putnam catheter in bladder. Amaury Ellsworth MD Tunnelled Chest Tube Removal 08/05/15 1100 Signed Impressions: Service Date/Time: Wednesday, August 05, 2015 11:00 - CONCLUSION: Uncomplicated chest tube removal. Blaine Jackson MD Chest Tube Change 07/31/15 0000 Signed Impressions: Service Date/Time: Friday, July 31, 2015 14:34 - CONCLUSION: Uncomplicated reposition of previously placed chest tube as above. Blaine Jackson MD Chest Tube Insertion 07/30/15 0000 Signed Impressions: Service Date/Time: July 14:50 - CONCLUSION: Uncomplicated chest tube placement as above. Blaine Jackson MD Catheter Change 07/27/15 0000 Signed Impressions: Service Date/Time: Monday, July 27, 2015 14:43 - CONCLUSION: Uncomplicated gastrostomy tube exchange as above. Blaine Jackson MD Chest CT 07/11/15 0000 Signed Impressions: Service Date/Time: Saturday, July 11, 2015 09:49 - CONCLUSION: Scattered patchy densities significantly improved from previous study. Tiny anterior right basilar pneumothorax. Right-sided chest tube in good position. Néstor Matamoros MD Head CT 06/18/151902 Signed Impressions: Service Date/Time: June 19:31 - CONCLUSION: Diffuse atrophy unchanged. No acute intracranial findings. Kush Briscoe MD Abdomen/Pelvis CT 06/18/151902 Signed Impressions: Service Date/Time: June 19:36 - CONCLUSION: 1. Chronic nonspecific urinary bladder wall thickening. Bladder collapsed with Putnam catheter in place. 2. Chronic bilateral mid to lower lung zone groundglass opacity. 3. Nonobstructing left renal calculus. 4. Distended rectum. Kush Briscoe MD Objective Remarks GENERAL: Well-nourished, well-developed patient SKIN: Warm and dry. HEAD: Normocephalic. EYES: No scleral icterus. No injection or drainage. NECK: Trach in place. CARDIOVASCULAR: Regular rate and rhythm without murmurs, gallops, or rubs. RESPIRATORY: Decreased secretions. Moderate air entry. Scattered rhonchi. GASTROINTESTINAL: Abdomen soft, non-tender, nondistended. MUSCULOSKELETAL: No edema. Contractures and deformities of fingers. Stage III coccyx/sacral decubitus ulcer. NEURO: Unresponsive to voice, not following commands. Procedures 07/26- PEG replacement 07/29- right pigtail catheter placement for new pneumothorax Medications and IVs Current Medications Medications (Trade) Dose Ordered Sig/Jassi Route Start Time Stop Time Status Last Admin (NS Flush) 2 ml UNSCH PRN IVF 06/18/15 21:30 12/05/15 20:49 (NS Flush) 2 ml BID IVF 06/19/15 09:00 01/02/16 08:19 (Tylenol 650 Mg/ 20 ml Liq) 650 mg Q6H PRN TUBE 06/18/15 21:30 12/22/15 09:13 (Tears Naturale Opth Soln) 1 drop TID EACH EYE 06/19/15 09:00 01/02/16 13:51 (Zofran Inj) 4 mg Q6H PRN IV 06/18/15 21:30 11/26/15 11:54 (Sinemet 25-100 Mg) 1 tab Q8HR GT 06/19/15 06:00 01/02/16 13:51 (Neurontin) 300 mg BID G-TUBE 06/19/15 09:00 01/02/16 08:17 (Lactinex) 1 tab TID PO 06/19/15 09:00 01/02/16 13:51 (Paxil) 20 mg DAILY G-TUBE 06/19/15 09:00 01/02/16 08:17 (Pill Splitter) 1 ea UNSCH PRN OTHER 06/19/15 03:30 06/28/15 09:35 (Prevacid Odt) 30 mg DAILY NG 07/08/15 09:00 01/02/16 08:17 (KlonoPIN) 2 mg Q8HR PO 07/09/15 14:00 01/02/16 13:51 (SEROquel) 50 mg BID G-TUBE 07/18/15 09:00 01/02/16 08:18 (Morphine Inj) 2 mg Q3H PRN IV PUSH 07/28/15 00:45 01/01/16 04:04 (Peridex 0.12% Liq) 15 ml BID@08,20 MT 07/29/15 20:00 01/02/16 08:00 (Lovenox Inj) 40 mg Q24H SQ 08/09/15 22:00 Hold 12/05/15 20:49 ([place] 5-325 Mg) 1 tab Q6H PRN PO 08/15/15 15:45 01/01/16 21:28 (Sublimaze Inj) 50 mcg Q2H PRN IV PUSH 08/15/15 15:45 12/28/15 02:31 (ZyPREXA) 5 mg HS GT 08/15/15 21:00 01/01/16 21:27 (Santyl Oint) 1 applic DAILY TOP 08/21/15 09:00 01/02/16 08:20 (Levsin Liq) 0.125 mg Q4H PRN PO 09/06/15 11:00 12/27/15 20:27 (D50w (Vial) Inj) 25 ml UNSCH PRN IV PUSH 10/12/15 17:30 12/08/15 12:19 (Glucagon Inj) 1 mg UNSCH PRN OTHER 10/12/15 17:30 (NovoLIN R SUPPLEMENTAL SCALE) 1 Q6H SQ 10/12/15 18:00 12/29/15 13:27 (Proamatine) 2.5 mg BID G-TUBE 11/15/15 21:00 01/02/16 08:18 Water 200 ml 200 ml Q4HR G-TUBE 11/19/15 00:00 01/02/16 12:00 Potassium Chloride 100 ml @ 50 mls/hr Q2H PRN IV 11/28/15 13:30 12/03/15 08:10 (KCl 20 Meq Premix Inj) 100 ml @ 50 mls/hr Q2H PRN IV 11/28/15 13:30 11/30/15 12:14 Potassium Chloride 40 meq 40 meq UNSCH PRN PO/TUBE 11/28/15 13:30 Potassium Chloride 100 ml @ 25 mls/hr UNSCH PRN IV 11/28/15 13:30 Potassium Chloride 100 ml @ 50 mls/hr Q2H PRN IV 11/28/15 13:30 (Magnesium Sulfate Inj/NS Inj) 100 ml @ 50 mls/hr UNSCH PRN IV 11/28/15 13:30 Magnesium Oxide 800 mg 800 mg UNSCH PRN PO 11/28/15 13:30 (Magnesium Sulfate Inj/NS Inj) 100 ml @ 50 mls/hr UNSCH PRN IV 11/28/15 13:30 Potassium Phosphate 2000 mg 2,000 mg Q4H PRN PO 11/28/15 13:30 (Sodium Phosphate Inj/NS 250 ml Inj) 250 ml @ 42 mls/hr UNSCH PRN IV 11/28/15 13:30 (KCl 40 Meq/30 ml Liq) 40 meq UNSCH PRN PO/TUBE 11/28/15 13:30 Potassium Phosphate 2000 mg 2,000 mg UNSCH PRN PO/TUBE 11/28/15 13:30 (Potassium Phosphate Inj/NS 250 ml Inj) 260 ml @ 42 mls/hr UNSCH PRN IV 11/28/15 13:30 12/02/15 12:25 (KCl) 10 meq BID G-TUBE 12/03/15 21:00 01/02/16 08:17 (Brethine Inj) 1 mg UNSCH PRN SQ 12/06/15 06:45 Lorazepam 1 mg 1 mg Q3HR PRN IVP 12/15/15 17:00 01/02/16 13:52 (NS 1000 ml Inj) 1,000 ml @ 100 mls/hr Q10H IV 12/16/15 18:00 01/02/16 10:33 Prednisone 2.5 mg 2.5 mg DAILY PO 12/23/15 09:00 01/02/16 08:19 Piperacillin Sod/ Tazobactam Sod 100 ml @ 200 mls/hr Q6H IV 12/26/15 16:00 01/02/16 15:59 01/02/16 10:33 (Diprivan 1000 Mg/100ml Inj) 100 ml @ 0 mls/hr TITRATE IV 12/26/15 23:15 Date of Insertion: Dec 16, 2015 A/P Problem List: (1) Sepsis due to urinary tract infection ICD Code: A41.9 Status: Resolved (2) Acute respiratory failure ICD Code: J96.00 Status: Resolved (3) Chronic respiratory failure ICD Code: J96.10 Status: Chronic (4) Parkinson disease ICD Code: G20 Status: Chronic (5) UTI (urinary tract infection) ICD Code: N39.0 Status: Acute (6) Encephalopathy ICD Code: G93.40 Status: Resolved Assessment and Plan S/P Sepsis shock Recurrent Aspiration. - Infectious disease following. Continue Zosyn. D/c 01/01. Chronic respiratory failure- BiPAP at night. Chronic tracheostomy S/P recurrent Right pneumothorax status post pigtail catheter removal Suction secretions Duo nebs 4 times a day and when necessary. S/p colistin nebs and Solumedrol. Appreciate pulmonology following, Dr. Car Bipap at hs . 40% T piece daytime per pulmonology. Metabolic Encephalopathy - chronic Parkinson's disease Cognitive disorder/Underlying dementia Depression CT head 06/18/15: - diffuse atrophy unchanged. No acute intracranial findings Continue cognitive and pain meds. Malnutrition/protein calorie - moderate Status post PEG Hemorrhoids Gastroesophageal reflux disease. Concern for hematemesis 12/05. GI evaluated pt. Gastroccult was negative and hemoglobin has been stable. - TF restarted at 35 ml/hr as has problems with recurrent aspiration. - Current Colace/senna for bowel regimen. - continue PPI.- Prevacid. Bilateral lower extremity Contractures Stage II DU - Wound care following - Continue physical therapy GI prophylaxis: PPI. Stool softener PRN constipation. DVT PPx: Lovenox Discharge Planning Awaiting clinical improvement. Salazar Santa DO Jan 02, 2016 15:30
[2016-01-02] MEDS: ACETAMINOPHEN/HYDROcodone 325 MG/5 MG TAB PO PRN (17:34)
--- NOTE | 2016-01-02 20:24 | HHI.PR ---
Subjective Remarks Awake and Remains lethargic and 0n a T bar FIO2 40 % . Sat 97 On tube feeds at 35 CC. On Antibiotics .No new change. No fever. Objective Vital Signs Date Time Temp Pulse Resp B/P Pulse Ox O2 Delivery O2 Flow Rate FiO2 01/02/16 20:00 98.3 73 20 117/70 98 01/02/16 18:00 69 01/02/16 16:00 98 T-Piece 30 01/02/16 16:00 98.7 77 23 110/70 98 01/02/16 16:00 79 01/02/16 14:00 74 01/02/16 12:00 73 01/02/16 12:00 98 T-Piece 30 01/02/16 12:00 98.6 73 21 100/58 98 01/02/16 10:00 84 01/02/16 09:35 100 T-piece 35 01/02/16 08:00 81 01/02/16 08:00 97 Bi-Pap 30 01/02/16 08:00 98.2 80 27 110/70 98 01/02/16 06:00 75 01/02/16 04:27 98 35 01/02/16 04:00 97.2 85 31 115/75 97 01/02/16 04:00 97 Bi-Pap 30 01/02/16 04:00 85 01/02/16 02:15 71 01/02/16 00:19 98 35 01/02/16 00:00 77 01/02/16 00:00 99 Bi-Pap 30 01/02/16 00:00 97.5 80 20 93/59 98 01/01/16 22:30 81 01/01/16 22:00 95 Bi-Pap 30 01/01/16 21:55 95 35 I/O 01/01/16 01/01/16 01/01/16 01/02/16 01/02/16 01/02/16 06:59 14:59 22:59 06:59 14:59 22:59 Intake Total 1624 ml 850 ml 2556 ml 1494 ml 1731 ml Output Total 1350 ml 1200 ml 2400 ml 1300 ml 1750 ml Balance 274 ml -350 ml 156 ml 194 ml -19 ml Intake Oral 0 ml 0 ml IV Total 806 ml 600 ml 1706 ml 756 ml 988 ml Tube Feeding 218 ml 0 ml 550 ml 238 ml 293 ml Tube Irrigant 600 ml 50 ml Other 200 ml 300 ml 500 ml 450 ml Output Urine Total 1350 ml 1200 ml 2400 ml 1300 ml 1750 ml Gastric Drainage Total 0 ml # Bowel Movements 2 1 2 Result Diagram: 01/02/1645101/02/16451 Objective Remarks This is a thin white male who is , Lethargic,with a trach tube in place. HEENT: Pupils are equal and reactive to light. CHEST:Decreased breath sounds, with Bilateral wheeze. CARDIOVASCULAR: S1 and S2 is normal.No murmur. ABDOMEN: Soft, nondistended. BS +. He has a PEG tube in place. EXTREMITIES: Contractures.muscle wasting. NEURO: Awake and has weak extremities. Skin is warm. Assessment and Plan Assessment and Plan IMPRESSION 1. Chronic Respiratory failure. 2. Sepsis, Aspiration. 3. Left basal Pneumonia 4. Tracheobronchitis 5. Parkinson's disease 6. Dementia. 7. Severe Deconditioning. Plan : 1. Continue on Bipap 5/15, FIo2 30 % at HS 2. Nebs Bid , duoneb. 3. Cont tube feeds Jevity at 35 CC 4. T Bar 35 % daytime. 5. Levsin .25 mg tid prn for Secretions 6. Cont Trach toilet and lavage. 8. Transfer to tele. 9. PT for activity/Postural drainage qid. 10. CXR Monday. Darren Kiser MD Jan 02, 2016 20:23
[2016-01-02] MEDS: OLANZapine 5 MG TAB GT SCH (20:25)
[2016-01-03] VITALS (14 sets, daily range): BP systolic 107–146; BP diastolic 57–101; PULSE 68–104; RESP 18–24; TEMP 97.8–99; O2SAT 96–100
[2016-01-03] MEDS: clonazePAM 1 MG TAB PO SCH ×3 (00:51→13:43)
[2016-01-03] MEDS: CARBIDOPA/LEVODOPA 25 MG/100 MG TAB GT SCH ×3 (00:51→13:43)
[2016-01-03] MEDS: LORazepam 2 MG/ML VIAL IVP PRN (00:52)
[2016-01-03] MEDS: INSULIN NovoLIN REGULAR SUPPLEMENTAL SCALE SQ SCH ×4 (06:00→18:00)
[2016-01-03] MEDS: FREE WATER G-TUBE SCH ×5 (08:00→17:43)
[2016-01-03] MEDS: LACTOBACILLUS ACIDOPHILUS TAB PO SCH ×3 (08:28→17:43)
[2016-01-03] MEDS: GABAPENTIN 300 MG CAP G-TUBE SCH ×2 (08:28→21:08)
[2016-01-03] MEDS: POTASSIUM CHLORIDE 10 MEQ CAP G-TUBE SCH ×2 (08:28→21:08)
[2016-01-03] MEDS: MIDODRINE 5 MG TAB G-TUBE SCH ×2 (08:28→21:08)
[2016-01-03] MEDS: QUEtiapine FUMARATE 25 MG TAB G-TUBE SCH ×2 (08:28→21:08)
[2016-01-03] MEDS: PARoxetine HCL 20 MG TAB G-TUBE SCH (08:28)
[2016-01-03] MEDS: predniSONE 5 MG TAB PO SCH (08:28)
[2016-01-03] MEDS: LANSOPRAZOLE SOLUTAB 30 MG TAB NG SCH (08:28)
[2016-01-03] MEDS: SODIUM CHLOR 0.9% 1000 ML INJ 1,000 ML IV SCH ×2 (08:29→16:49)
[2016-01-03] MEDS: CHLORHEXIDINE 0.12% (ORAL KIT) 15 ML CUP MT SCH (08:29)
[2016-01-03] MEDS: ARTIFICIAL TEARS OPTH SOLN 15 ML BTL EACH EYE SCH ×3 (08:29→17:43)
[2016-01-03] MEDS: SODIUM CHLORIDE 0.9% FLUSH 5 ML FLUSH IVF SCH ×2 (08:34→21:09)
[2016-01-03] MEDS: COLLAGENASE OINT 30 GM TUBE TOP SCH (08:38)
--- NOTE | 2016-01-03 12:49 | HHI.PR ---
Subjective Remarks The patient appeared comfortable. Discussed with nursing. No acute issues. Still has excessive secretions. Objective Vitals Vital Signs Date Time Temp Pulse Resp B/P Pulse Ox O2 Delivery O2 Flow Rate FiO2 01/03/16 10:00 95 01/03/16 09:30 96 T-piece 35 01/03/16 08:00 104 01/03/16 08:00 98.5 104 22 128/81 100 01/03/16 08:00 97 Bi-Pap 35 01/03/16 06:00 97 01/03/16 04:00 T-Piece 8.00 35 01/03/16 04:00 79 01/03/16 04:00 98.3 90 24 124/82 96 01/03/16 03:05 99 35 01/03/16 00:00 99.0 89 20 124/57 97 01/03/16 00:00 73 01/03/16 00:00 T-Piece 8.00 35 01/02/16 22:00 85 01/02/16 20:00 72 01/02/16 20:00 98.3 73 20 117/70 98 01/02/16 20:00 T-Piece 35 01/02/16 19:55 100 T-piece 35 01/02/16 18:00 69 01/02/16 16:00 98 T-Piece 30 01/02/16 16:00 98.7 77 23 110/70 98 01/02/16 16:00 79 01/02/16 14:00 74 I/O 01/02/16 01/02/16 01/02/16 01/03/16 01/03/16 01/03/16 07:00 15:00 23:00 07:00 15:00 23:00 Intake Total 1494 ml 1731 ml 942 ml 728 ml Output Total 1300 ml 1750 ml 1250 ml 1200 ml Balance 194 ml -19 ml -308 ml -472 ml Intake Oral 0 ml IV Total 756 ml 988 ml 583 ml 590 ml Tube Feeding 238 ml 293 ml 359 ml 138 ml Other 500 ml 450 ml Output Urine Total 1300 ml 1750 ml 1250 ml 1200 ml Gastric Drainage Total 0 ml # Bowel Movements 2 2 3 Result Diagram: 01/02/162 01/02/16451 Imaging Last Impressions Chest X-Ray 12/29/15 06 Signed Impressions: Service Date/Time: Tuesday, December 29, 2015 03:27 - CONCLUSION: Mild patchy density being worse on the left. Erlin Barajas MD Abdomen X-Ray 12/07/15 0600 Signed Impressions: Service Date/Time: Monday, December 07, 2015 03:40 - CONCLUSION: No dilated loops of small or large bowel. Tai Jaquez MD Abdomen Ultrasound 12/06/15 0000 Signed Impressions: Service Date/Time: Sunday, December 06, 2015 17:42 - CONCLUSION: 1. The gallbladder is unremarkable with no evidence of cholelithiasis. 2. Simple cyst in the left kidney. 3. Mild pyelocaliectasis in the right kidney. Salazar Thurman MD Upper Extremity Ultrasound 10/13/15 0000 Signed Impressions: Service Date/Time: Tuesday, October 13, 2015 09:51 - CONCLUSION: 1. No evidence of deep venous thrombosis. John Anderson MD Renal Ultrasound 10/07/15 0000 Signed Impressions: Service Date/Time: Wednesday, October 07, 2015 18:29 - CONCLUSION: 1. No acute findings. 3.6 cm left renal cyst. Putnam catheter in bladder. Aamury Ellsworth MD Tunnelled Chest Tube Removal 08/05/15 1100 Signed Impressions: Service Date/Time: Wednesday, August 05, 2015 11:00 - CONCLUSION: Uncomplicated chest tube removal. Blaine Jackson MD Chest Tube Change 07/31/15 0000 Signed Impressions: Service Date/Time: Friday, July 31, 2015 14:34 - CONCLUSION: Uncomplicated reposition of previously placed chest tube as above. Blaine Jackson MD Chest Tube Insertion 07/30/15 0000 Signed Impressions: Service Date/Time: July 14:50 - CONCLUSION: Uncomplicated chest tube placement as above. Blaine Jackson MD Catheter Change 07/27/15 0000 Signed Impressions: Service Date/Time: Monday, July 27, 2015 14:43 - CONCLUSION: Uncomplicated gastrostomy tube exchange as above. Blaine Jackson MD Chest CT 07/11/15 0000 Signed Impressions: Service Date/Time: Saturday, July 11, 2015 09:49 - CONCLUSION: Scattered patchy densities significantly improved from previous study. Tiny anterior right basilar pneumothorax. Right-sided chest tube in good position. Néstor Matamoros MD Head CT 06/18/151902 Signed Impressions: Service Date/Time: June 19:31 - CONCLUSION: Diffuse atrophy unchanged. No acute intracranial findings. Kush Briscoe MD Abdomen/Pelvis CT 06/18/151902 Signed Impressions: Service Date/Time: June 19:36 - CONCLUSION: 1. Chronic nonspecific urinary bladder wall thickening. Bladder collapsed with Putnam catheter in place. 2. Chronic bilateral mid to lower lung zone groundglass opacity. 3. Nonobstructing left renal calculus. 4. Distended rectum. Kush Briscoe MD Objective Remarks GENERAL: Well-nourished, well-developed patient SKIN: Warm and dry. HEAD: Normocephalic. EYES: No scleral icterus. No injection or drainage. NECK: Trach in place. CARDIOVASCULAR: Regular rate and rhythm without murmurs, gallops, or rubs. RESPIRATORY: Decreased secretions. Moderate air entry. Scattered rhonchi. GASTROINTESTINAL: Abdomen soft, non-tender, nondistended. MUSCULOSKELETAL: No edema. Contractures and deformities of fingers. Stage III coccyx/sacral decubitus ulcer. NEURO: Unresponsive to voice, not following commands. Procedures 07/26- PEG replacement 07/29- right pigtail catheter placement for new pneumothorax Medications and IVs Current Medications Medications (Trade) Dose Ordered Sig/Jassi Route Start Time Stop Time Status Last Admin (NS Flush) 2 ml UNSCH PRN IVF 06/18/15 21:30 12/05/15 20:49 (NS Flush) 2 ml BID IVF 06/19/15 09:00 01/03/16 08:34 (Tylenol 650 Mg/ 20 ml Liq) 650 mg Q6H PRN TUBE 06/18/15 21:30 12/22/15 09:13 (Tears Naturale Opth Soln) 1 drop TID EACH EYE 06/19/15 09:00 01/03/16 12:08 (Zofran Inj) 4 mg Q6H PRN IV 06/18/15 21:30 11/26/15 11:54 (Sinemet 25-100 Mg) 1 tab Q8HR GT 06/19/15 06:00 01/03/16 06:00 (Neurontin) 300 mg BID G-TUBE 06/19/15 09:00 01/03/16 08:28 (Lactinex) 1 tab TID PO 06/19/15 09:00 01/03/16 08:28 (Paxil) 20 mg DAILY G-TUBE 06/19/15 09:00 01/03/16 08:28 (Pill Splitter) 1 ea UNSCH PRN OTHER 06/19/15 03:30 06/28/15 09:35 (Prevacid Odt) 30 mg DAILY NG 07/08/15 09:00 01/03/16 08:28 (KlonoPIN) 2 mg Q8HR PO 07/09/15 14:00 01/03/16 06:00 (SEROquel) 50 mg BID G-TUBE 07/18/15 09:00 01/03/16 08:28 (Morphine Inj) 2 mg Q3H PRN IV PUSH 07/28/15 00:45 01/01/16 04:04 (Peridex 0.12% Liq) 15 ml BID@08,20 MT 07/29/15 20:00 01/03/16 08:29 (Lovenox Inj) 40 mg Q24H SQ 08/09/15 22:00 Hold 12/05/15 20:49 ([place] 5-325 Mg) 1 tab Q6H PRN PO 08/15/15 15:45 01/02/16 17:34 (Sublimaze Inj) 50 mcg Q2H PRN IV PUSH 08/15/15 15:45 12/28/15 02:31 (ZyPREXA) 5 mg HS GT 08/15/15 21:00 01/02/16 20:25 (Santyl Oint) 1 applic DAILY TOP 08/21/15 09:00 01/02/16 08:20 (Levsin Liq) 0.125 mg Q4H PRN PO 09/06/15 11:00 12/27/15 20:27 (D50w (Vial) Inj) 25 ml UNSCH PRN IV PUSH 10/12/15 17:30 12/08/15 12:19 (Glucagon Inj) 1 mg UNSCH PRN OTHER 10/12/15 17:30 (NovoLIN R SUPPLEMENTAL SCALE) 1 Q6H SQ 10/12/15 18:00 12/29/15 13:27 (Proamatine) 2.5 mg BID G-TUBE 11/15/15 21:00 01/03/16 08:28 Water 200 ml 200 ml Q4HR G-TUBE 11/19/15 00:00 01/03/16 12:00 Potassium Chloride 100 ml @ 50 mls/hr Q2H PRN IV 11/28/15 13:30 12/03/15 08:10 (KCl 20 Meq Premix Inj) 100 ml @ 50 mls/hr Q2H PRN IV 11/28/15 13:30 11/30/15 12:14 Potassium Chloride 40 meq 40 meq UNSCH PRN PO/TUBE 11/28/15 13:30 Potassium Chloride 100 ml @ 25 mls/hr UNSCH PRN IV 11/28/15 13:30 Potassium Chloride 100 ml @ 50 mls/hr Q2H PRN IV 11/28/15 13:30 (Magnesium Sulfate Inj/NS Inj) 100 ml @ 50 mls/hr UNSCH PRN IV 11/28/15 13:30 Magnesium Oxide 800 mg 800 mg UNSCH PRN PO 11/28/15 13:30 (Magnesium Sulfate Inj/NS Inj) 100 ml @ 50 mls/hr UNSCH PRN IV 11/28/15 13:30 Potassium Phosphate 2000 mg 2,000 mg Q4H PRN PO 11/28/15 13:30 (Sodium Phosphate Inj/NS 250 ml Inj) 250 ml @ 42 mls/hr UNSCH PRN IV 11/28/15 13:30 (KCl 40 Meq/30 ml Liq) 40 meq UNSCH PRN PO/TUBE 11/28/15 13:30 Potassium Phosphate 2000 mg 2,000 mg UNSCH PRN PO/TUBE 11/28/15 13:30 (Potassium Phosphate Inj/NS 250 ml Inj) 260 ml @ 42 mls/hr UNSCH PRN IV 11/28/15 13:30 12/02/15 12:25 (KCl) 10 meq BID G-TUBE 12/03/15 21:00 01/03/16 08:28 (Brethine Inj) 1 mg UNSCH PRN SQ 12/06/15 06:45 Lorazepam 1 mg 1 mg Q3HR PRN IVP 12/15/15 17:00 01/03/16 00:52 (NS 1000 ml Inj) 1,000 ml @ 100 mls/hr Q10H IV 12/16/15 18:00 01/03/16 08:29 Prednisone 2.5 mg 2.5 mg DAILY PO 12/23/15 09:00 01/03/16 08:28 (Diprivan 1000 Mg/100ml Inj) 100 ml @ 0 mls/hr TITRATE IV 12/26/15 23:15 Date of Insertion: Dec 16, 2015 A/P Problem List: (1) Sepsis due to urinary tract infection ICD Code: A41.9 Status: Resolved (2) Acute respiratory failure ICD Code: J96.00 Status: Resolved (3) Chronic respiratory failure ICD Code: J96.10 Status: Chronic (4) Parkinson disease ICD Code: G20 Status: Chronic (5) UTI (urinary tract infection) ICD Code: N39.0 Status: Acute (6) Encephalopathy ICD Code: G93.40 Status: Resolved Assessment and Plan S/P Sepsis shock Recurrent Aspiration. - Infectious disease following. Continue Zosyn. D/c 01/01. Chronic respiratory failure- BiPAP at night. Chronic tracheostomy S/P recurrent Right pneumothorax status post pigtail catheter removal Suction secretions Duo nebs 4 times a day and when necessary. S/p colistin nebs and Solumedrol. Appreciate pulmonology following. Bipap at hs . 40% T piece daytime per pulmonology. Metabolic Encephalopathy - chronic Parkinson's disease Cognitive disorder/Underlying dementia Depression CT head 06/18/15: - diffuse atrophy unchanged. No acute intracranial findings Continue cognitive and pain meds. Malnutrition/protein calorie - moderate Status post PEG Hemorrhoids Gastroesophageal reflux disease. Concern for hematemesis 12/05. GI evaluated pt. Gastroccult was negative and hemoglobin has been stable. - TF restarted at 35 ml/hr as has problems with recurrent aspiration. - Current Colace/senna for bowel regimen. - continue PPI.- Prevacid. Bilateral lower extremity Contractures Stage II DU - Wound care following - Continue physical therapy GI prophylaxis: PPI. Stool softener PRN constipation. DVT PPx: Lovenox Discharge Planning Awaiting clinical improvement. Salazar Santa DO Jan 03, 2016 12:49
--- NOTE | 2016-01-03 13:03 | HHI.PR ---
Subjective Remarks Awake and Remains lethargic and 0n a T bar FIO2 40 % . Sat 97. Good output On tube feeds at 35 CC. On Antibiotics .No new change. No fever. Objective Vital Signs Date Time Temp Pulse Resp B/P Pulse Ox O2 Delivery O2 Flow Rate FiO2 01/03/16 10:00 95 01/03/16 09:30 96 T-piece 35 01/03/16 08:00 104 01/03/16 08:00 98.5 104 22 128/81 100 01/03/16 08:00 97 Bi-Pap 35 01/03/16 06:00 97 01/03/16 04:00 T-Piece 8.00 35 01/03/16 04:00 79 01/03/16 04:00 98.3 90 24 124/82 96 01/03/16 03:05 99 35 01/03/16 00:00 99.0 89 20 124/57 97 01/03/16 00:00 73 01/03/16 00:00 T-Piece 8.00 35 01/02/16 22:00 85 01/02/16 20:00 72 01/02/16 20:00 98.3 73 20 117/70 98 01/02/16 20:00 T-Piece 35 01/02/16 19:55 100 T-piece 35 01/02/16 18:00 69 01/02/16 16:00 98 T-Piece 30 01/02/16 16:00 98.7 77 23 110/70 98 01/02/16 16:00 79 01/02/16 14:00 74 I/O 01/02/16 01/02/16 01/02/16 01/03/16 01/03/16 01/03/16 07:00 15:00 23:00 07:00 15:00 23:00 Intake Total 1494 ml 1731 ml 942 ml 728 ml Output Total 1300 ml 1750 ml 1250 ml 1200 ml Balance 194 ml -19 ml -308 ml -472 ml Intake Oral 0 ml IV Total 756 ml 988 ml 583 ml 590 ml Tube Feeding 238 ml 293 ml 359 ml 138 ml Other 500 ml 450 ml Output Urine Total 1300 ml 1750 ml 1250 ml 1200 ml Gastric Drainage Total 0 ml # Bowel Movements 2 2 3 Result Diagram: 01/02/16 0452 01/02/16 4208 Objective Remarks This is a thin white male who is , Lethargic,with a trach tube in place. HEENT: Pupils are equal and reactive to light. CHEST:Decreased breath sounds, with Bilateral wheeze.Occ Crackles. CARDIOVASCULAR: S1 and S2 is normal.No murmur. ABDOMEN: Soft, nondistended. BS +. He has a PEG tube in place. EXTREMITIES: Contractures.muscle wasting. NEURO: Awake and has weak extremities. Skin is warm. Assessment and Plan Assessment and Plan IMPRESSION 1. Chronic Respiratory failure. 2. Sepsis, Aspiration. 3. Left basal Pneumonia 4. Tracheobronchitis 5. Parkinson's disease 6. Dementia. 7. Severe Deconditioning. Plan : 1. Continue on Bipap 5/15, FIo2 30 % at HS 2. Nebs Bid , duoneb. 3. Cont tube feeds Jevity at 35 CC 4. T Bar 35 % daytime. 5. Levsin .25 mg tid prn for Secretions 6. Cont Trach toilet and lavage. 8. Reduce IV to 42 CC 9. PT for activity/Postural drainage qid. 10. CXR ,BMP Monday. Darren Kiser MD Jan 03, 2016 13:03
[2016-01-03] MEDS: OLANZapine 5 MG TAB GT SCH (21:08)
[2016-01-04] VITALS (16 sets, daily range): BP systolic 102–132; BP diastolic 3–99; PULSE 75–110; RESP 16–25; TEMP 98.2–99; O2SAT 18–98
[2016-01-04] MEDS: clonazePAM 1 MG TAB PO SCH ×4 (00:20→21:26)
[2016-01-04] MEDS: ACETAMINOPHEN/HYDROcodone 325 MG/5 MG TAB PO PRN (00:21)
[2016-01-04] MEDS: CARBIDOPA/LEVODOPA 25 MG/100 MG TAB GT SCH ×4 (00:21→21:26)
--- NOTE | 2016-01-04 04:38 | RADRPT ---
EXAM DATE/TIME: 01/04/2016 03:15 [place] COMPARISON: CHEST SINGLE AP, December 29, 2015, 3:27. INDICATIONS : Shortness of breath, possible pulmonary disease. MEDICAL HISTORY : Hypertension. Gastroesophageal reflux disease. Diabetes mellitus type II. SURGICAL HISTORY : Tracheostomy ENCOUNTER: Subsequent ACUITY: 4 - 6 months PAIN SCORE: Non-responsive. LOCATION: Bilateral chest FINDINGS: There is COPD with slight coarse interstitial process in the left lung not significantly changed. Tra cheostomy tube is present in satisfactory position. Heart and mediastinum are unremarkable for techni que. CONCLUSION: No appreciable change. Eugene Schmid MD on January 04, 2016 at 4:36 Board Certified Radiologist. This report was verified electronically.
[2016-01-04] MEDS: FREE WATER G-TUBE SCH ×4 (06:00→17:49)
[2016-01-04] MEDS: INSULIN NovoLIN REGULAR SUPPLEMENTAL SCALE SQ SCH ×4 (06:00→17:49)
[2016-01-04 07:26] LABS: BICARBONATE 30.4 MEQ/L (21.0-32.0)
[2016-01-04] MEDS: POTASSIUM CHLORIDE 10 MEQ CAP G-TUBE SCH ×2 (08:36→21:26)
[2016-01-04] MEDS: GABAPENTIN 300 MG CAP G-TUBE SCH ×2 (08:36→21:27)
[2016-01-04] MEDS: LANSOPRAZOLE SOLUTAB 30 MG TAB NG SCH (08:36)
[2016-01-04] MEDS: LACTOBACILLUS ACIDOPHILUS TAB PO SCH ×3 (08:36→17:48)
[2016-01-04] MEDS: QUEtiapine FUMARATE 25 MG TAB G-TUBE SCH ×2 (08:36→21:26)
[2016-01-04] MEDS: predniSONE 5 MG TAB PO SCH (08:37)
[2016-01-04] MEDS: COLLAGENASE OINT 30 GM TUBE TOP SCH (08:37)
[2016-01-04] MEDS: ARTIFICIAL TEARS OPTH SOLN 15 ML BTL EACH EYE SCH ×3 (08:37→17:48)
[2016-01-04] MEDS: PARoxetine HCL 20 MG TAB G-TUBE SCH (08:37)
[2016-01-04] MEDS: MIDODRINE 5 MG TAB G-TUBE SCH ×2 (08:37→21:26)
[2016-01-04] MEDS: CHLORHEXIDINE 0.12% (ORAL KIT) 15 ML CUP MT SCH ×2 (08:38→21:26)
[2016-01-04] MEDS: SODIUM CHLORIDE 0.9% FLUSH 5 ML FLUSH IVF SCH ×2 (08:39→21:27)
--- NOTE | 2016-01-04 12:33 | HHI.PR ---
Subjective Remarks Awake and Remains lethargic , but responds to questions. and 0n a T bar FIO2 28 % . Sat 97. Good output On tube feeds at 35 CC. .No new change. No fever. CXR shows, no change Objective Vital Signs Date Time Temp Pulse Resp B/P Pulse Ox O2 Delivery O2 Flow Rate FiO2 01/04/16 10:00 91 01/04/16 09:22 97 T-piece 4.00 28 01/04/16 08:00 98 T-Piece 8.00 35 01/04/16 08:00 98.5 82 16 132/89 98 01/04/16 08:00 82 01/04/16 06:00 80 01/04/16 06:00 98.7 77 20 102/67 18 01/04/16 04:12 97 25 01/04/16 04:00 84 01/04/16 04:00 T-Piece 35 01/04/16 02:00 75 01/04/16 01:21 95 25 01/04/16 00:00 98.2 78 20 106/67 96 01/04/16 00:00 79 01/04/16 00:00 84 01/04/16 00:00 T-Piece 35 01/03/16 23:53 96 25 01/03/16 23:53 96 BiPAP 25 01/03/16 22:00 78 01/03/16 20:00 78 01/03/16 20:00 98.4 68 18 146/101 98 01/03/16 20:00 T-Piece 35 01/03/16 18:00 87 01/03/16 16:00 97.8 88 20 107/69 100 01/03/16 16:00 100 T-Piece 35 01/03/16 16:00 76 01/03/16 14:00 75 I/O 01/03/16 01/03/16 01/03/16 01/04/16 01/04/16 01/04/16 07:00 15:00 23:00 07:00 15:00 23:00 Intake Total 728 ml 1404 ml 900 ml 573 ml Output Total 1200 ml 1600 ml 1150 ml 700 ml Balance -472 ml -196 ml -250 ml -127 ml IV Total 590 ml 720 ml 550 ml 235 ml Tube Feeding 138 ml 284 ml 350 ml 138 ml Other 400 ml 200 ml Output Urine Total 1200 ml 1600 ml 1150 ml 700 ml # Bowel Movements 3 2 2 2 Result Diagram: 01/02/16 0452 01/04/16 0625 Objective Remarks This is a thin white male who is , Lethargic,with a trach tube in place. HEENT: Pupils are equal and reactive to light. CHEST:Decreased breath sounds, .No Crackles. CARDIOVASCULAR: S1 and S2 is normal.No murmur. ABDOMEN: Soft, nondistended. BS +. He has a PEG tube in place. EXTREMITIES: Contractures.muscle wasting. NEURO: Awake and has weak extremities. Skin is warm. Assessment and Plan Assessment and Plan IMPRESSION 1. Chronic Respiratory failure. 2. Sepsis, Aspiration. 3. Left basal Pneumonia 4. Tracheobronchitis 5. Parkinson's disease 6. Dementia. 7. Severe Deconditioning. Plan : 1. Continue on Bipap 5/15, FIo2 30 % at HS 2. Nebs Bid , duoneb. 3. Cont tube feeds Jevity at 40 CC 4. T Bar 35 % daytime. 5. Levsin .25 mg tid prn for Secretions 6. Cont Trach toilet and lavage. 8. D/C IV 9. PT for activity/Postural drainage qid. 1 Darren Kiser MD Jan 04, 2016 12:33
--- NOTE | 2016-01-04 16:30 | HHI.PR ---
Subjective Remarks The pt appeared comfortable. No major events reported. Objective Vitals Vital Signs Date Time Temp Pulse Resp B/P Pulse Ox O2 Delivery O2 Flow Rate FiO2 01/04/16 16:00 96 T-Piece 8.00 35 01/04/16 16:00 98.3 90 25 106/74 96 01/04/16 16:00 90 01/04/16 14:00 93 01/04/16 12:00 99.0 85 22 110/73 98 01/04/16 12:00 85 01/04/16 12:00 98 T-Piece 8.00 35 01/04/16 10:00 91 01/04/16 09:22 97 T-piece 4.00 28 01/04/16 08:00 98 T-Piece 8.00 35 01/04/16 08:00 98.5 82 16 132/89 98 01/04/16 08:00 82 01/04/16 06:00 80 01/04/16 06:00 98.7 77 20 102/67 18 01/04/16 04:12 97 25 01/04/16 04:00 84 01/04/16 04:00 T-Piece 35 01/04/16 02:00 75 01/04/16 01:21 95 25 01/04/16 00:00 98.2 78 20 106/67 96 01/04/16 00:00 79 01/04/16 00:00 84 01/04/16 00:00 T-Piece 35 01/03/16 23:53 96 25 01/03/16 23:53 96 BiPAP 25 01/03/16 22:00 78 01/03/16 20:00 78 01/03/16 20:00 98.4 68 18 146/101 98 01/03/16 20:00 T-Piece 35 01/03/16 18:00 87 I/O 01/03/16 01/03/16 01/03/16 01/04/16 01/04/16 01/04/16 06:59 14:59 22:59 06:59 14:59 22:59 Intake Total 728 ml 1404 ml 900 ml 573 ml 768 ml Output Total 1200 ml 1600 ml 1150 ml 700 ml 650 ml Balance -472 ml -196 ml -250 ml -127 ml 118 ml IV Total 590 ml 720 ml 550 ml 235 ml 311 ml Tube Feeding 138 ml 284 ml 350 ml 138 ml 257 ml Tube Irrigant 200 ml Other 400 ml 200 ml Output Urine Total 1200 ml 1600 ml 1150 ml 700 ml 650 ml # Bowel Movements 3 2 2 2 1 Result Diagram: 01/02/16 0452 01/04/16 0625 Imaging Last Impressions Chest X-Ray 01/04/16 06 Signed Impressions: Service Date/Time: Monday, January 04, 2016 03:15 - CONCLUSION: No appreciable change. Eugene Schmid MD Abdomen X-Ray 12/07/15 0600 Signed Impressions: Service Date/Time: Monday, December 07, 2015 03:40 - CONCLUSION: No dilated loops of small or large bowel. Tai Jaquez MD Abdomen Ultrasound 12/06/15 0000 Signed Impressions: Service Date/Time: Sunday, December 06, 2015 17:42 - CONCLUSION: 1. The gallbladder is unremarkable with no evidence of cholelithiasis. 2. Simple cyst in the left kidney. 3. Mild pyelocaliectasis in the right kidney. Salazar Thurman MD Upper Extremity Ultrasound 10/13/15 0000 Signed Impressions: Service Date/Time: Tuesday, October 13, 2015 09:51 - CONCLUSION: 1. No evidence of deep venous thrombosis. John Anderson MD Renal Ultrasound 10/07/15 0000 Signed Impressions: Service Date/Time: Wednesday, October 07, 2015 18:29 - CONCLUSION: 1. No acute findings. 3.6 cm left renal cyst. Putnam catheter in bladder. Amaury Ellsworth MD Tunnelled Chest Tube Removal 08/05/15 1100 Signed Impressions: Service Date/Time: Wednesday, August 05, 2015 11:00 - CONCLUSION: Uncomplicated chest tube removal. Blaine Jackson MD Chest Tube Change 07/31/15 0000 Signed Impressions: Service Date/Time: Friday, July 31, 2015 14:34 - CONCLUSION: Uncomplicated reposition of previously placed chest tube as above. Blaine Jackson MD Chest Tube Insertion 07/30/15 0000 Signed Impressions: Service Date/Time: July 14:50 - CONCLUSION: Uncomplicated chest tube placement as above. Blaine Jackson MD Catheter Change 07/27/15 0000 Signed Impressions: Service Date/Time: Monday, July 27, 2015 14:43 - CONCLUSION: Uncomplicated gastrostomy tube exchange as above. Blaine Jackson MD Chest CT 07/11/15 0000 Signed Impressions: Service Date/Time: Saturday, July 11, 2015 09:49 - CONCLUSION: Scattered patchy densities significantly improved from previous study. Tiny anterior right basilar pneumothorax. Right-sided chest tube in good position. Néstor Matamoros MD Head CT 06/18/151902 Signed Impressions: Service Date/Time: June 19:31 - CONCLUSION: Diffuse atrophy unchanged. No acute intracranial findings. Kush Briscoe MD Abdomen/Pelvis CT 06/18/151902 Signed Impressions: Service Date/Time: June 19:36 - CONCLUSION: 1. Chronic nonspecific urinary bladder wall thickening. Bladder collapsed with Putnam catheter in place. 2. Chronic bilateral mid to lower lung zone groundglass opacity. 3. Nonobstructing left renal calculus. 4. Distended rectum. Kush Briscoe MD Objective Remarks GENERAL: Well-nourished, well-developed patient SKIN: Warm and dry. HEAD: Normocephalic. EYES: No scleral icterus. No injection or drainage. NECK: Trach in place. CARDIOVASCULAR: Regular rate and rhythm without murmurs, gallops, or rubs. RESPIRATORY: Decreased secretions. Moderate air entry. Scattered rhonchi. GASTROINTESTINAL: Abdomen soft, non-tender, nondistended. MUSCULOSKELETAL: No edema. Contractures and deformities of fingers. Stage III coccyx/sacral decubitus ulcer. NEURO: Unresponsive to voice, not following commands. Procedures 07/26- PEG replacement 07/29- right pigtail catheter placement for new pneumothorax Medications and IVs Current Medications Medications (Trade) Dose Ordered Sig/Jassi Route Start Time Stop Time Status Last Admin (NS Flush) 2 ml UNSCH PRN IVF 06/18/15 21:30 12/05/15 20:49 (NS Flush) 2 ml BID IVF 06/19/15 09:00 01/04/16 08:39 (Tylenol 650 Mg/ 20 ml Liq) 650 mg Q6H PRN TUBE 06/18/15 21:30 12/22/15 09:13 (Tears Naturale Opth Soln) 1 drop TID EACH EYE 06/19/15 09:00 01/04/16 12:32 (Zofran Inj) 4 mg Q6H PRN IV 06/18/15 21:30 11/26/15 11:54 (Sinemet 25-100 Mg) 1 tab Q8HR GT 06/19/15 06:00 01/04/16 12:31 (Neurontin) 300 mg BID G-TUBE 06/19/15 09:00 01/04/16 08:36 (Lactinex) 1 tab TID PO 06/19/15 09:00 01/04/16 12:31 (Paxil) 20 mg DAILY G-TUBE 06/19/15 09:00 01/04/16 08:37 (Pill Splitter) 1 ea UNSCH PRN OTHER 06/19/15 03:30 06/28/15 09:35 (Prevacid Odt) 30 mg DAILY NG 07/08/15 09:00 01/04/16 08:36 (KlonoPIN) 2 mg Q8HR PO 07/09/15 14:00 01/04/16 12:31 (SEROquel) 50 mg BID G-TUBE 07/18/15 09:00 01/04/16 08:36 (Morphine Inj) 2 mg Q3H PRN IV PUSH 07/28/15 00:45 01/01/16 04:04 (Peridex 0.12% Liq) 15 ml BID@08,20 MT 07/29/15 20:00 01/04/16 08:38 (Lovenox Inj) 40 mg Q24H SQ 08/09/15 22:00 Hold 12/05/15 20:49 ([place] 5-325 Mg) 1 tab Q6H PRN PO 08/15/15 15:45 01/04/16 00:21 (Sublimaze Inj) 50 mcg Q2H PRN IV PUSH 08/15/15 15:45 12/28/15 02:31 (ZyPREXA) 5 mg HS GT 08/15/15 21:00 01/03/16 21:08 (Santyl Oint) 1 applic DAILY TOP 08/21/15 09:00 01/04/16 08:37 (Levsin Liq) 0.125 mg Q4H PRN PO 09/06/15 11:00 12/27/15 20:27 (D50w (Vial) Inj) 25 ml UNSCH PRN IV PUSH 10/12/15 17:30 12/08/15 12:19 (Glucagon Inj) 1 mg UNSCH PRN OTHER 10/12/15 17:30 (NovoLIN R SUPPLEMENTAL SCALE) 1 Q6H SQ 10/12/15 18:00 12/29/15 13:27 Midodrine 2.5 mg 2.5 mg BID G-TUBE 11/15/15 21:00 01/04/16 08:37 Potassium Chloride 100 ml @ 50 mls/hr Q2H PRN IV 11/28/15 13:30 12/03/15 08:10 (KCl 20 Meq Premix Inj) 100 ml @ 50 mls/hr Q2H PRN IV 11/28/15 13:30 11/30/15 12:14 Potassium Chloride 40 meq 40 meq UNSCH PRN PO/TUBE 11/28/15 13:30 Potassium Chloride 100 ml @ 25 mls/hr UNSCH PRN IV 11/28/15 13:30 Potassium Chloride 100 ml @ 50 mls/hr Q2H PRN IV 11/28/15 13:30 (Magnesium Sulfate Inj/NS Inj) 100 ml @ 50 mls/hr UNSCH PRN IV 11/28/15 13:30 Magnesium Oxide 800 mg 800 mg UNSCH PRN PO 11/28/15 13:30 (Magnesium Sulfate Inj/NS Inj) 100 ml @ 50 mls/hr UNSCH PRN IV 11/28/15 13:30 Potassium Phosphate 2000 mg 2,000 mg Q4H PRN PO 11/28/15 13:30 (Sodium Phosphate Inj/NS 250 ml Inj) 250 ml @ 42 mls/hr UNSCH PRN IV 11/28/15 13:30 (KCl 40 Meq/30 ml Liq) 40 meq UNSCH PRN PO/TUBE 11/28/15 13:30 Potassium Phosphate 2000 mg 2,000 mg UNSCH PRN PO/TUBE 11/28/15 13:30 (Potassium Phosphate Inj/NS 250 ml Inj) 260 ml @ 42 mls/hr UNSCH PRN IV 11/28/15 13:30 12/02/15 12:25 (KCl) 10 meq BID G-TUBE 12/03/15 21:00 01/04/16 08:36 (Brethine Inj) 1 mg UNSCH PRN SQ 12/06/15 06:45 Lorazepam 1 mg 1 mg Q3HR PRN IVP 12/15/15 17:00 01/03/16 00:52 (NS 1000 ml Inj) 1,000 ml @ 40 mls/hr Q24H IV 12/16/15 18:00 01/03/16 16:49 Prednisone 2.5 mg 2.5 mg DAILY PO 12/23/15 09:00 01/04/16 08:37 (Diprivan 1000 Mg/100ml Inj) 100 ml @ 0 mls/hr TITRATE IV 12/26/15 23:15 (Free Water) 200 ml Q6HR G-TUBE 01/03/16 18:00 01/04/16 12:00 Date of Insertion: Dec 16, 2015 A/P Problem List: (1) Sepsis due to urinary tract infection ICD Code: A41.9 Status: Resolved (2) Acute respiratory failure ICD Code: J96.00 Status: Resolved (3) Chronic respiratory failure ICD Code: J96.10 Status: Chronic (4) Parkinson disease ICD Code: G20 Status: Chronic (5) UTI (urinary tract infection) ICD Code: N39.0 Status: Acute (6) Encephalopathy ICD Code: G93.40 Status: Resolved Assessment and Plan S/P Sepsis shock Recurrent Aspiration. - Infectious disease following. Zosyn d/c 01/01. Chronic respiratory failure- BiPAP at night. Chronic tracheostomy S/P recurrent Right pneumothorax status post pigtail catheter removal Suction secretions and Levsin as needed Duo nebs 4 times a day and when necessary. S/p colistin nebs and Solumedrol. Appreciate pulmonology following. Bipap at hs . 40% T piece daytime per pulmonology. Metabolic Encephalopathy - chronic Parkinson's disease Cognitive disorder/Underlying dementia Depression CT head 06/18/15: - diffuse atrophy unchanged. No acute intracranial findings Continue cognitive and pain meds. Malnutrition/protein calorie - moderate Status post PEG Hemorrhoids Gastroesophageal reflux disease. Concern for hematemesis 12/05. GI evaluated pt. Gastroccult was negative and hemoglobin has been stable. - TF restarted at 35 ml/hr as has problems with recurrent aspiration. - Current Colace/senna for bowel regimen. - continue PPI.- Prevacid. Bilateral lower extremity Contractures Stage II DU - Wound care following - Continue physical therapy GI prophylaxis: PPI. Stool softener PRN constipation. DVT PPx: Lovenox Discharge Planning Awaiting clinical improvement. Salazar Santa DO Jan 04, 2016 16:30
[2016-01-04] MEDS: SODIUM CHLOR 0.9% 1000 ML INJ 1,000 ML IV SCH (17:49)
[2016-01-04] MEDS: OLANZapine 5 MG TAB GT SCH (21:26)
[2016-01-05] VITALS (14 sets, daily range): BP systolic 96–127; BP diastolic 60–87; PULSE 79–104; RESP 20–32; TEMP 97.9–98.6; O2SAT 95–99
[2016-01-05] MEDS: SODIUM CHLOR 0.9% 1000 ML INJ 1,000 ML IV SCH (05:17)
[2016-01-05] MEDS: CARBIDOPA/LEVODOPA 25 MG/100 MG TAB GT SCH ×3 (05:17→21:12)
[2016-01-05] MEDS: clonazePAM 1 MG TAB PO SCH ×3 (05:17→21:13)
[2016-01-05] MEDS: FREE WATER G-TUBE SCH ×4 (05:17→17:57)
[2016-01-05] MEDS: INSULIN NovoLIN REGULAR SUPPLEMENTAL SCALE SQ SCH ×4 (06:00→17:57)
[2016-01-05] MEDS: predniSONE 5 MG TAB PO SCH (09:06)
[2016-01-05] MEDS: QUEtiapine FUMARATE 25 MG TAB G-TUBE SCH ×2 (09:06→21:13)
[2016-01-05] MEDS: GABAPENTIN 300 MG CAP G-TUBE SCH ×2 (09:06→21:13)
[2016-01-05] MEDS: SODIUM CHLORIDE 0.9% FLUSH 5 ML FLUSH IVF SCH ×2 (09:06→21:00)
[2016-01-05] MEDS: LACTOBACILLUS ACIDOPHILUS TAB PO SCH ×3 (09:06→17:57)
[2016-01-05] MEDS: LANSOPRAZOLE SOLUTAB 30 MG TAB NG SCH (09:06)
[2016-01-05] MEDS: MIDODRINE 5 MG TAB G-TUBE SCH ×2 (09:06→21:13)
[2016-01-05] MEDS: ARTIFICIAL TEARS OPTH SOLN 15 ML BTL EACH EYE SCH ×3 (09:07→17:57)
[2016-01-05] MEDS: PARoxetine HCL 20 MG TAB G-TUBE SCH (09:07)
[2016-01-05] MEDS: CHLORHEXIDINE 0.12% (ORAL KIT) 15 ML CUP MT SCH ×2 (09:07→20:54)
[2016-01-05] MEDS: COLLAGENASE OINT 30 GM TUBE TOP SCH (09:07)
[2016-01-05] MEDS: POTASSIUM CHLORIDE 10 MEQ CAP G-TUBE SCH ×2 (09:07→21:12)
--- NOTE | 2016-01-05 12:58 | HHI.PR ---
Subjective Remarks Awake and more alert, and responds to questions. and 0n a T bar FIO2 28 % . Sat 97. On tube feeds at 35 CC. .No new change. Objective Vital Signs Date Time Temp Pulse Resp B/P Pulse Ox O2 Delivery O2 Flow Rate FiO2 01/05/16 10:00 94 01/05/16 08:00 98.4 97 29 108/85 99 01/05/16 08:00 97 01/05/16 08:00 98 T-Piece 28 01/05/16 07:30 100 01/05/16 06:00 100 01/05/16 04:26 96 25 01/05/16 04:00 95 Bi-Pap 30 01/05/16 04:00 98.2 90 20 96/60 95 01/05/16 04:00 90 01/05/16 02:00 98 01/05/16 00:00 98.6 104 21 96/65 95 01/05/16 00:00 95 25 01/05/16 00:00 95 Bi-Pap 30 01/05/16 00:00 104 01/04/16 22:00 110 01/04/16 20:09 97 25 01/04/16 20:00 97 Bi-Pap 30 01/04/16 20:00 91 01/04/16 20:00 98.8 91 24 131/99 97 01/04/16 18:00 85 01/04/16 16:00 96 T-Piece 8.00 35 01/04/16 16:00 98.3 90 25 106/74 96 01/04/16 16:00 90 01/04/16 14:00 93 I/O 01/04/16 01/04/16 01/04/16 01/05/16 01/05/16 01/05/16 06:59 14:59 22:59 06:59 14:59 22:59 Intake Total 573 ml 768 ml 844 ml 965 ml Output Total 700 ml 650 ml 900 ml 1300 ml Balance -127 ml 118 ml -56 ml -335 ml IV Total 235 ml 311 ml 305 ml 302 ml Tube Feeding 138 ml 257 ml 239 ml 263 ml Tube Irrigant 200 ml 300 ml 400 ml Other 200 ml Output Urine Total 700 ml 650 ml 900 ml 1300 ml # Bowel Movements 2 1 1 1 Result Diagram: 01/02/16 0452 01/04/16 8263 Objective Remarks This is a thin white male who is , alert with a trach tube in place. HEENT: Pupils are equal and reactive to light. CHEST:Decreased breath sounds, .No Crackles. CARDIOVASCULAR: S1 and S2 is normal.No murmur. ABDOMEN: Soft, nondistended. BS +. He has a PEG tube in place. EXTREMITIES: Contractures.muscle wasting. NEURO: Awake and has weak extremities. Skin is dry. Assessment and Plan Assessment and Plan IMPRESSION 1. Chronic Respiratory failure. 2. Sepsis, Aspiration. 3. Left basal Pneumonia 4. Tracheobronchitis 5. Parkinson's disease 6. Dementia. 7. Severe Deconditioning. Plan : 1. Continue on Bipap 5/15, FIo2 28 % at HS 2. Nebs Bid , duoneb. 3. Cont tube feeds Jevity at 40 CC 4. T Bar 28 % daytime. 5. Levsin .25 mg tid prn for Secretions 6. Cont Trach toilet and lavage. 8. CBC,BMP 9. PT for activity/Postural drainage qid. 1 Darren Kiser MD Jan 05, 2016 12:58
--- NOTE | 2016-01-05 18:05 | HHI.PR ---
Subjective Remarks eyes open attempts to speak tolerating tube feedings with no residual at goal rate on t piece 28 % requires suctioning periodically Objective Vitals Vital Signs Date Time Temp Pulse Resp B/P Pulse Ox O2 Delivery O2 Flow Rate FiO2 01/05/16 14:00 82 01/05/16 12:00 98.1 93 30 119/87 99 01/05/16 12:00 93 01/05/16 12:00 99 T-Piece 28 01/05/16 10:00 94 01/05/16 08:00 98.4 97 29 108/85 99 01/05/16 08:00 97 01/05/16 08:00 98 T-Piece 28 01/05/16 07:30 100 01/05/16 06:00 100 01/05/16 04:26 96 25 01/05/16 04:00 95 Bi-Pap 30 01/05/16 04:00 98.2 90 20 96/60 95 01/05/16 04:00 90 01/05/16 02:00 98 01/05/16 00:00 98.6 104 21 96/65 95 01/05/16 00:00 95 25 01/05/16 00:00 95 Bi-Pap 30 01/05/16 00:00 104 01/04/16 22:00 110 01/04/16 20:09 97 25 01/04/16 20:00 97 Bi-Pap 30 01/04/16 20:00 91 01/04/16 20:00 98.8 91 24 131/99 97 I/O 01/04/16 01/04/16 01/04/16 01/05/16 01/05/16 01/05/16 07:00 15:00 23:00 07:00 15:00 23:00 Intake Total 573 ml 768 ml 844 ml 965 ml 1013 ml Output Total 700 ml 650 ml 900 ml 1300 ml 1100 ml Balance -127 ml 118 ml -56 ml -335 ml -87 ml IV Total 235 ml 311 ml 305 ml 302 ml 398 ml Tube Feeding 138 ml 257 ml 239 ml 263 ml 315 ml Tube Irrigant 200 ml 300 ml 400 ml 300 ml Other 200 ml Output Urine Total 700 ml 650 ml 900 ml 1300 ml 1100 ml # Bowel Movements 2 1 1 1 1 Result Diagram: 01/02/16 0452 01/04/16 0625 Imaging Last Impressions Chest X-Ray 01/04/16 0600 Signed Impressions: Service Date/Time: Monday, January 04, 2016 03:15 - CONCLUSION: No appreciable change. Eugene Schmid MD Abdomen X-Ray 12/07/15 0600 Signed Impressions: Service Date/Time: Monday, December 07, 2015 03:40 - CONCLUSION: No dilated loops of small or large bowel. Tai Jaquez MD Abdomen Ultrasound 12/06/15 0000 Signed Impressions: Service Date/Time: Sunday, December 06, 2015 17:42 - CONCLUSION: 1. The gallbladder is unremarkable with no evidence of cholelithiasis. 2. Simple cyst in the left kidney. 3. Mild pyelocaliectasis in the right kidney. Salazar Thurman MD Upper Extremity Ultrasound 10/13/15 0000 Signed Impressions: Service Date/Time: Tuesday, October 13, 2015 09:51 - CONCLUSION: 1. No evidence of deep venous thrombosis. John Anderson MD Renal Ultrasound 10/07/15 0000 Signed Impressions: Service Date/Time: Wednesday, October 07, 2015 18:29 - CONCLUSION: 1. No acute findings. 3.6 cm left renal cyst. Valdez catheter in bladder. Amaury Ellsworth MD Tunnelled Chest Tube Removal 08/05/15 1100 Signed Impressions: Service Date/Time: Wednesday, August 05, 2015 11:00 - CONCLUSION: Uncomplicated chest tube removal. Blaine Jackson MD Chest Tube Change 07/31/15 0000 Signed Impressions: Service Date/Time: Friday, July 31, 2015 14:34 - CONCLUSION: Uncomplicated reposition of previously placed chest tube as above. Blaine Jackson MD Chest Tube Insertion 07/30/15 0000 Signed Impressions: Service Date/Time: July 14:50 - CONCLUSION: Uncomplicated chest tube placement as above. Blaine Jackson MD Catheter Change 07/27/15 0000 Signed Impressions: Service Date/Time: Monday, July 27, 2015 14:43 - CONCLUSION: Uncomplicated gastrostomy tube exchange as above. Blaine Jackson MD Chest CT 07/11/15 0000 Signed Impressions: Service Date/Time: Saturday, July 11, 2015 09:49 - CONCLUSION: Scattered patchy densities significantly improved from previous study. Tiny anterior right basilar pneumothorax. Right-sided chest tube in good position. Néstor Matamoros MD Head CT 06/18/151902 Signed Impressions: Service Date/Time: June 19:31 - CONCLUSION: Diffuse atrophy unchanged. No acute intracranial findings. Kush Briscoe MD Abdomen/Pelvis CT 06/18/151902 Signed Impressions: Service Date/Time: June 19:36 - CONCLUSION: 1. Chronic nonspecific urinary bladder wall thickening. Bladder collapsed with Valdez catheter in place. 2. Chronic bilateral mid to lower lung zone groundglass opacity. 3. Nonobstructing left renal calculus. 4. Distended rectum. Kush Briscoe MD Objective Remarks pupils reactive, anicteric, trach in place - in t piece decrease breath sounds, no rales regular rhythm- good bowel sounds, PEG in place extremities - no edema both upper extremities- moves spontaneously lower extremities-flexion contractures sacral area - stage3 decubitus valdez catheter in place- draining clear urine Procedures 07/26- PEG replacement 07/29- right pigtail catheter placement for new pneumothorax Urinary Catheter: Yes Valdez insert reason: Prolonged Immobilization Date of Insertion: Dec 16, 2015 A/P Problem List: (1) Sepsis due to urinary tract infection ICD Code: A41.9 Status: Resolved (2) Acute respiratory failure ICD Code: J96.00 Status: Resolved (3) Chronic respiratory failure ICD Code: J96.10 Status: Chronic (4) Parkinson disease ICD Code: G20 Status: Chronic (5) UTI (urinary tract infection) ICD Code: N39.0 Status: Acute (6) Encephalopathy ICD Code: G93.40 Status: Resolved Assessment and Plan S/P Sepsis shock Recurrent Aspiration. - Infectious disease following. Zosyn d/c 01/01. Chronic respiratory failure- BiPAP at night. Chronic tracheostomy S/P recurrent Right pneumothorax status post pigtail catheter removal Suction secretions and Levsin as needed Duo nebs 4 times a day and when necessary. S/p colistin nebs and Solumedrol. Appreciate pulmonology following. Bipap at hs . 40% T piece daytime per pulmonology. Metabolic Encephalopathy - chronic Parkinson's disease Cognitive disorder/Underlying dementia Depression CT head 06/18/15: - diffuse atrophy unchanged. No acute intracranial findings Continue cognitive and pain meds. Malnutrition/protein calorie - moderate Status post PEG Hemorrhoids Gastroesophageal reflux disease. Concern for hematemesis 12/05. GI evaluated pt. Gastroccult was negative and hemoglobin has been stable. - TF restarted at 35 ml/hr as has problems with recurrent aspiration. - Current Colace/senna for bowel regimen. - continue PPI.- Prevacid. Bilateral lower extremity Contractures Stage II DU - Wound care following - Continue physical therapy GI prophylaxis: PPI. Stool softener PRN constipation. DVT PPx: Claire Hedrick MD Jan 05, 2016 18:05
[2016-01-05] MEDS: OLANZapine 5 MG TAB GT SCH (21:13)
[2016-01-06] VITALS (15 sets, daily range): BP systolic 93–121; BP diastolic 59–82; PULSE 71–97; RESP 20–22; TEMP 97.4–98.4; O2SAT 95–100
[2016-01-06] MEDS: CARBIDOPA/LEVODOPA 25 MG/100 MG TAB GT SCH ×3 (05:29→20:15)
[2016-01-06] MEDS: clonazePAM 1 MG TAB PO SCH ×3 (05:30→20:14)
[2016-01-06] MEDS: FREE WATER G-TUBE SCH ×4 (05:31→17:04)
[2016-01-06] MEDS: INSULIN NovoLIN REGULAR SUPPLEMENTAL SCALE SQ SCH ×4 (05:31→17:09)
[2016-01-06] MEDS: SODIUM CHLOR 0.9% 1000 ML INJ 1,000 ML IV SCH (05:31)
--- NOTE | 2016-01-06 08:22 | HHI.PR ---
Subjective Remarks no acute events overnight tolerating tube feedings good sats on 25% Fi02 Bi pap opened eyes and nodded to call of his name Objective Vitals Vital Signs Date Time Temp Pulse Resp B/P Pulse Ox O2 Delivery O2 Flow Rate FiO2 01/06/16 06:00 94 01/06/16 05:10 96 25 01/06/16 04:00 95 T-Piece 28 01/06/16 04:00 87 01/06/16 04:00 98.4 87 20 106/73 95 01/06/16 02:00 87 01/06/16 01:30 95 25 01/06/16 00:00 98.2 87 22 103/73 95 01/06/16 00:00 95 T-Piece 28 01/06/16 00:00 87 01/05/16 22:00 85 01/05/16 22:00 96 25 01/05/16 20:00 97.9 79 24 127/76 99 01/05/16 20:00 99 T-Piece 28 01/05/16 20:00 79 01/05/16 18:00 89 01/05/16 16:00 93 01/05/16 16:00 98.3 93 32 101/70 97 01/05/16 16:00 97 T-Piece 28 01/05/16 14:00 82 01/05/16 12:00 98.1 93 30 119/87 99 01/05/16 12:00 93 01/05/16 12:00 99 T-Piece 28 01/05/16 10:00 94 I/O 01/05/16 01/05/16 01/05/16 01/06/16 01/06/16 01/06/16 07:00 15:00 23:00 07:00 15:00 23:00 Intake Total 965 ml 1013 ml 813 ml 1045 ml Output Total 1300 ml 1100 ml 750 ml 750 ml Balance -335 ml -87 ml 63 ml 295 ml IV Total 302 ml 398 ml 300 ml 345 ml Tube Feeding 263 ml 315 ml 213 ml 300 ml Tube Irrigant 400 ml 300 ml 300 ml 400 ml Output Urine Total 1300 ml 1100 ml 750 ml 750 ml # Bowel Movements 1 1 1 1 Result Diagram: 01/02/16 0452 01/04/16624 Imaging Last Impressions Chest X-Ray 01/04/16 06 Signed Impressions: Service Date/Time: Monday, January 04, 2016 03:15 - CONCLUSION: No appreciable change. Eugene Schmid MD Abdomen X-Ray 12/07/15 0600 Signed Impressions: Service Date/Time: Monday, December 07, 2015 03:40 - CONCLUSION: No dilated loops of small or large bowel. Tai Jaquez MD Abdomen Ultrasound 12/06/15 0000 Signed Impressions: Service Date/Time: Sunday, December 06, 2015 17:42 - CONCLUSION: 1. The gallbladder is unremarkable with no evidence of cholelithiasis. 2. Simple cyst in the left kidney. 3. Mild pyelocaliectasis in the right kidney. Salazar Thurman MD Upper Extremity Ultrasound 10/13/15 0000 Signed Impressions: Service Date/Time: Tuesday, October 13, 2015 09:51 - CONCLUSION: 1. No evidence of deep venous thrombosis. John Anderson MD Renal Ultrasound 10/07/15 0000 Signed Impressions: Service Date/Time: Wednesday, October 07, 2015 18:29 - CONCLUSION: 1. No acute findings. 3.6 cm left renal cyst. Valdez catheter in bladder. Amaury Ellsworth MD Tunnelled Chest Tube Removal 08/05/15 1100 Signed Impressions: Service Date/Time: Wednesday, August 05, 2015 11:00 - CONCLUSION: Uncomplicated chest tube removal. Blaine Jackson MD Chest Tube Change 07/31/15 0000 Signed Impressions: Service Date/Time: Friday, July 31, 2015 14:34 - CONCLUSION: Uncomplicated reposition of previously placed chest tube as above. Blaine Jackson MD Chest Tube Insertion 07/30/15 0000 Signed Impressions: Service Date/Time: July 14:50 - CONCLUSION: Uncomplicated chest tube placement as above. Blaine Jackson MD Catheter Change 07/27/15 0000 Signed Impressions: Service Date/Time: Monday, July 27, 2015 14:43 - CONCLUSION: Uncomplicated gastrostomy tube exchange as above. Blaine Jackson MD Chest CT 07/11/15 0000 Signed Impressions: Service Date/Time: Saturday, July 11, 2015 09:49 - CONCLUSION: Scattered patchy densities significantly improved from previous study. Tiny anterior right basilar pneumothorax. Right-sided chest tube in good position. Néstor Matamoros MD Head CT 06/18/151902 Signed Impressions: Service Date/Time: June 19:31 - CONCLUSION: Diffuse atrophy unchanged. No acute intracranial findings. Kush Briscoe MD Abdomen/Pelvis CT 06/18/151902 Signed Impressions: Service Date/Time: , June 18, 2015 19:36 - CONCLUSION: 1. Chronic nonspecific urinary bladder wall thickening. Bladder collapsed with Valdez catheter in place. 2. Chronic bilateral mid to lower lung zone groundglass opacity. 3. Nonobstructing left renal calculus. 4. Distended rectum. Kush Briscoe MD Objective Remarks pupils reactive, anicteric, trach in place - in t piece decrease breath sounds, no rales regular rhythm- good bowel sounds, PEG in place extremities - no edema both upper extremities- moves spontaneously lower extremities-flexion contractures sacral area - stage3 decubitus- will examine today valdez catheter in place- draining clear urine Procedures 07/26- PEG replacement 07/29- right pigtail catheter placement for new pneumothorax Urinary Catheter: Yes Valdez insert reason: Prolonged Immobilization Date of Insertion: Dec 16, 2015 A/P Problem List: (1) Sepsis due to urinary tract infection ICD Code: A41.9 Status: Resolved (2) Acute respiratory failure ICD Code: J96.00 Status: Resolved (3) Chronic respiratory failure ICD Code: J96.10 Status: Chronic (4) Parkinson disease ICD Code: G20 Status: Chronic (5) UTI (urinary tract infection) ICD Code: N39.0 Status: Acute (6) Encephalopathy ICD Code: G93.40 Status: Resolved Assessment and Plan S/P Sepsis shock Recurrent Aspiration. - Infectious disease following. S/P Zosyn course 01/01. Chronic respiratory failure- - tolerated T piece overnight Chronic tracheostomy S/P recurrent Right pneumothorax status post pigtail catheter removal Suction secretions and Levsin as needed Duo nebs 4 times a day and when necessary. S/p colistin nebs and Solumedrol. Appreciate pulmonology following. Metabolic Encephalopathy - chronic Parkinson's disease Cognitive disorder/Underlying dementia Depression CT head 06/18/15: - diffuse atrophy unchanged. No acute intracranial findings Continue cognitive and pain meds. Malnutrition/protein calorie - moderate Status post PEG Hemorrhoids Gastroesophageal reflux disease. Concern for hematemesis 12/05. GI evaluated pt. Gastroccult was negative and hemoglobin has been stable. - TF restarted at 35 ml/hr- tolerated - this goal rate- monitor- as has problems with recurrent aspiration. - Current Colace/senna for bowel regimen. - continue PPI.- Prevacid. Bilateral lower extremity Contractures Stage II DU - Wound care following - Continue physical therapy GI prophylaxis: PPI. Stool softener PRN constipation. DVT PPx: Lovenox CM ff - placement Claire Queen MD Jan 06, 2016 08:21
[2016-01-06] MEDS: POTASSIUM CHLORIDE 10 MEQ CAP G-TUBE SCH ×2 (08:38→20:15)
[2016-01-06] MEDS: QUEtiapine FUMARATE 25 MG TAB G-TUBE SCH ×2 (08:39→20:14)
[2016-01-06] MEDS: LANSOPRAZOLE SOLUTAB 30 MG TAB NG SCH (08:39)
[2016-01-06] MEDS: SODIUM CHLORIDE 0.9% FLUSH 5 ML FLUSH IVF SCH ×2 (08:39→20:15)
[2016-01-06] MEDS: PARoxetine HCL 20 MG TAB G-TUBE SCH (08:39)
[2016-01-06] MEDS: MIDODRINE 5 MG TAB G-TUBE SCH ×2 (08:39→20:14)
[2016-01-06] MEDS: GABAPENTIN 300 MG CAP G-TUBE SCH ×2 (08:39→20:14)
[2016-01-06] MEDS: predniSONE 5 MG TAB PO SCH (08:39)
[2016-01-06] MEDS: COLLAGENASE OINT 30 GM TUBE TOP SCH (08:40)
[2016-01-06] MEDS: ARTIFICIAL TEARS OPTH SOLN 15 ML BTL EACH EYE SCH ×3 (08:40→17:09)
[2016-01-06] MEDS: LACTOBACILLUS ACIDOPHILUS TAB PO SCH ×3 (08:40→17:04)
--- NOTE | 2016-01-06 11:59 | HHI.PR ---
Subjective Remarks Awake and lethargic, and responds to questions. and 0n a T bar FIO2 28 % . Sat 97. On tube feeds at 35 CC. Objective Vital Signs Date Time Temp Pulse Resp B/P Pulse Ox O2 Delivery O2 Flow Rate FiO2 01/06/16 08:00 95 T-Piece 28 01/06/16 08:00 98.0 97 20 107/76 95 01/06/16 08:00 97 01/06/16 06:00 94 01/06/16 05:10 96 25 01/06/16 04:00 95 T-Piece 28 01/06/16 04:00 87 01/06/16 04:00 98.4 87 20 106/73 95 01/06/16 02:00 87 01/06/16 01:30 95 25 01/06/16 00:00 98.2 87 22 103/73 95 01/06/16 00:00 95 T-Piece 28 01/06/16 00:00 87 01/05/16 22:00 85 01/05/16 22:00 96 25 01/05/16 20:00 97.9 79 24 127/76 99 01/05/16 20:00 99 T-Piece 28 01/05/16 20:00 79 01/05/16 18:00 89 01/05/16 16:00 93 01/05/16 16:00 98.3 93 32 101/70 97 01/05/16 16:00 97 T-Piece 28 01/05/16 14:00 82 01/05/16 12:00 98.1 93 30 119/87 99 01/05/16 12:00 93 01/05/16 12:00 99 T-Piece 28 I/O 01/05/16 01/05/16 01/05/16 01/06/16 01/06/16 01/06/16 07:00 15:00 23:00 07:00 15:00 23:00 Intake Total 965 ml 1013 ml 813 ml 1045 ml Output Total 1300 ml 1100 ml 750 ml 750 ml Balance -335 ml -87 ml 63 ml 295 ml IV Total 302 ml 398 ml 300 ml 345 ml Tube Feeding 263 ml 315 ml 213 ml 300 ml Tube Irrigant 400 ml 300 ml 300 ml 400 ml Output Urine Total 1300 ml 1100 ml 750 ml 750 ml # Bowel Movements 1 1 1 1 Result Diagram: 01/02/16 0452 01/04/16 0625 Objective Remarks This is a thin white male who is , awake with a trach tube in place. HEENT: Pupils are equal and reactive to light. CHEST:Decreased breath sounds, .No Crackles.occ wheeze. CARDIOVASCULAR: S1 and S2 is normal.No murmur. ABDOMEN: Soft, nondistended. BS +. He has a PEG tube in place. EXTREMITIES: Contractures.muscle wasting. NEURO: Awake and has weak extremities. Skin is cool. Assessment and Plan Assessment and Plan IMPRESSION 1. Chronic Respiratory failure. 2. Sepsis, Aspiration. Improved 3. Left basal Pneumonia 4. Tracheobronchitis 5. Parkinson's disease 6. Dementia. 7. Severe Deconditioning. Plan : 1. Continue on Bipap 06/20, FIo2 28 % at HS 2. Nebs Bid , duoneb. 3. Cont tube feeds Jevity at 40 CC 4. T Bar 28 % daytime. 5. Levsin .25 mg tid prn for Secretions 6. Cont Trach toilet and lavage. 8. Transfer to tele 9. PT for activity/Postural drainage qid. 1 Darren Kiser MD Jan 06, 2016 11:59
[2016-01-06] MEDS: CHLORHEXIDINE 0.12% (ORAL KIT) 15 ML CUP MT SCH ×2 (12:45→20:16)
[2016-01-06] MEDS: DEXTROSE 50% IN WATER 50 ML VIAL(D50) IV PUSH PRN (20:14)
[2016-01-06] MEDS: OLANZapine 5 MG TAB GT SCH (20:14)
[2016-01-07] VITALS (15 sets, daily range): BP systolic 93–118; BP diastolic 58–84; PULSE 70–109; RESP 18–24; TEMP 96.6–98.3; O2SAT 95–100
[2016-01-07] MEDS: DEXT 5%-NACL 0.9% 1000 ML INJ 1,000 ML IV SCH (01:57)
[2016-01-07] MEDS: INSULIN NovoLIN REGULAR SUPPLEMENTAL SCALE SQ SCH ×3 (04:03→10:48)
[2016-01-07] MEDS: clonazePAM 1 MG TAB PO SCH ×3 (04:04→23:13)
[2016-01-07] MEDS: CARBIDOPA/LEVODOPA 25 MG/100 MG TAB GT SCH ×3 (04:04→23:11)
[2016-01-07] MEDS: FREE WATER G-TUBE SCH ×3 (04:05→10:49)
[2016-01-07] MEDS: MORPHINE SULFATE 4 MG/ML INJ IV PUSH PRN (04:59)
[2016-01-07] MEDS: CHLORHEXIDINE 0.12% (ORAL KIT) 15 ML CUP MT SCH ×2 (07:55→20:00)
[2016-01-07] MEDS: MIDODRINE 5 MG TAB G-TUBE SCH ×2 (08:12→23:10)
[2016-01-07] MEDS: QUEtiapine FUMARATE 25 MG TAB G-TUBE SCH ×2 (08:12→23:12)
[2016-01-07] MEDS: LANSOPRAZOLE SOLUTAB 30 MG TAB NG SCH (08:12)
[2016-01-07] MEDS: LACTOBACILLUS ACIDOPHILUS TAB PO SCH ×3 (08:12→18:00)
[2016-01-07] MEDS: POTASSIUM CHLORIDE 10 MEQ CAP G-TUBE SCH ×2 (08:12→21:00)
[2016-01-07] MEDS: PARoxetine HCL 20 MG TAB G-TUBE SCH (08:12)
[2016-01-07] MEDS: GABAPENTIN 300 MG CAP G-TUBE SCH ×2 (08:12→23:11)
[2016-01-07] MEDS: SODIUM CHLORIDE 0.9% FLUSH 5 ML FLUSH IVF SCH ×2 (08:13→21:00)
[2016-01-07] MEDS: predniSONE 5 MG TAB PO SCH (08:13)
[2016-01-07] MEDS: ARTIFICIAL TEARS OPTH SOLN 15 ML BTL EACH EYE SCH ×3 (08:13→18:00)
[2016-01-07] MEDS: COLLAGENASE OINT 30 GM TUBE TOP SCH (08:14)
--- NOTE | 2016-01-07 12:12 | HHI.PR ---
Subjective Remarks comfortable, no acute events maintaining sat,s tolerating tube feedings Objective Vitals Vital Signs Date Time Temp Pulse Resp B/P Pulse Ox O2 Delivery O2 Flow Rate FiO2 01/07/16 12:00 Bi-Pap 01/07/16 12:00 80 01/07/16 10:00 90 01/07/16 08:29 95 T-piece 6.00 28 01/07/16 08:00 Bi-Pap 25 01/07/16 08:00 82 01/07/16 06:00 82 01/07/16 04:17 97 25 01/07/16 04:00 70 01/07/16 04:00 96.7 70 23 109/74 96 01/07/16 04:00 Bi-Pap 01/07/16 02:00 78 01/07/16 00:55 96 25 01/07/16 00:00 T-Piece 28 01/07/16 00:00 86 01/07/16 00:00 97.0 86 22 93/58 96 01/06/16 22:12 97 25 01/06/16 22:12 100 BiPAP 01/06/16 22:00 76 01/06/16 20:00 97.4 81 121/82 98 01/06/16 20:00 98 Nasal Cannula 8.00 28 01/06/16 20:00 81 01/06/16 20:00 T-Piece 8.00 28 01/06/16 18:00 78 01/06/16 16:00 77 01/06/16 16:00 97 T-Piece 01/06/16 16:00 98.0 77 20 103/69 97 01/06/16 14:00 71 I/O 01/06/16 01/06/16 01/06/16 01/07/16 01/07/16 01/07/16 06:59 14:59 22:59 06:59 14:59 22:59 Intake Total 1045 ml 786 ml 482 ml 647 ml Output Total 750 ml 1400 ml 425 ml 600 ml Balance 295 ml -614 ml 57 ml 47 ml Intake Oral 0 ml IV Total 345 ml 293 ml 288 ml 247 ml Tube Feeding 300 ml 293 ml 194 ml Tube Irrigant 400 ml 200 ml Other 400 ml Output Urine Total 750 ml 1400 ml 425 ml 600 ml # Bowel Movements 1 0 1 Result Diagram: 01/04/16 0625 Imaging Last Impressions Chest X-Ray 01/04/16 06 Signed Impressions: Service Date/Time: Monday, January 04, 2016 03:15 - CONCLUSION: No appreciable change. Eugene Schmid MD Abdomen X-Ray 12/07/15 06 Signed Impressions: Service Date/Time: Monday, December 07, 2015 03:40 - CONCLUSION: No dilated loops of small or large bowel. Tai Jaquez MD Abdomen Ultrasound 12/06/15 0000 Signed Impressions: Service Date/Time: Sunday, December 06, 2015 17:42 - CONCLUSION: 1. The gallbladder is unremarkable with no evidence of cholelithiasis. 2. Simple cyst in the left kidney. 3. Mild pyelocaliectasis in the right kidney. Salazar Thurman MD Upper Extremity Ultrasound 10/13/15 0000 Signed Impressions: Service Date/Time: Tuesday, October 13, 2015 09:51 - CONCLUSION: 1. No evidence of deep venous thrombosis. John Anderson MD Renal Ultrasound 10/07/15 0000 Signed Impressions: Service Date/Time: Wednesday, October 07, 2015 18:29 - CONCLUSION: 1. No acute findings. 3.6 cm left renal cyst. Valdez catheter in bladder. Amaury Ellsworth MD Tunnelled Chest Tube Removal 08/05/15 1100 Signed Impressions: Service Date/Time: Wednesday, August 05, 2015 11:00 - CONCLUSION: Uncomplicated chest tube removal. Blaine Jackson MD Chest Tube Change 07/31/15 0000 Signed Impressions: Service Date/Time: Friday, July 31, 2015 14:34 - CONCLUSION: Uncomplicated reposition of previously placed chest tube as above. Blaine Jackson MD Chest Tube Insertion 07/30/15 0000 Signed Impressions: Service Date/Time: July 14:50 - CONCLUSION: Uncomplicated chest tube placement as above. Blaine Jackson MD Catheter Change 07/27/15 0000 Signed Impressions: Service Date/Time: Monday, July 27, 2015 14:43 - CONCLUSION: Uncomplicated gastrostomy tube exchange as above. Blaine Jackson MD Chest CT 07/11/15 0000 Signed Impressions: Service Date/Time: Saturday, July 11, 2015 09:49 - CONCLUSION: Scattered patchy densities significantly improved from previous study. Tiny anterior right basilar pneumothorax. Right-sided chest tube in good position. Néstor Matamoros MD Head CT 06/18/151902 Signed Impressions: Service Date/Time: June 19:31 - CONCLUSION: Diffuse atrophy unchanged. No acute intracranial findings. Kush Briscoe MD Abdomen/Pelvis CT 06/18/151902 Signed Impressions: Service Date/Time: June 19:36 - CONCLUSION: 1. Chronic nonspecific urinary bladder wall thickening. Bladder collapsed with Valdez catheter in place. 2. Chronic bilateral mid to lower lung zone groundglass opacity. 3. Nonobstructing left renal calculus. 4. Distended rectum. Kush Briscoe MD Objective Remarks pupils reactive, anicteric, trach in place - in t piece decrease breath sounds, no rales regular rhythm- good bowel sounds, PEG in place extremities - no edema both upper extremities- moves spontaneously lower extremities-flexion contractures sacral area - stage3 decubitus- examined 01/[address]- draining clear urine Procedures 07/26- PEG replacement 07/29- right pigtail catheter placement for new pneumothorax Date of Insertion: Dec 16, 2015 A/P Problem List: (1) Sepsis due to urinary tract infection ICD Code: A41.9 Status: Resolved (2) Acute respiratory failure ICD Code: J96.00 Status: Resolved (3) Chronic respiratory failure ICD Code: J96.10 Status: Chronic (4) Parkinson disease ICD Code: G20 Status: Chronic (5) UTI (urinary tract infection) ICD Code: N39.0 Status: Acute (6) Encephalopathy ICD Code: G93.40 Status: Resolved Assessment and Plan S/P Sepsis shock Recurrent Aspiration. - Infectious disease following. S/P Zosyn course 01/01. Chronic respiratory failure- - tolerated T piece overnight Chronic tracheostomy S/P recurrent Right pneumothorax status post pigtail catheter removal Suction secretions and Levsin as needed Duo nebs 4 times a day and when necessary. S/p colistin nebs and Solumedrol. Appreciate pulmonology following. Metabolic Encephalopathy - chronic Parkinson's disease Cognitive disorder/Underlying dementia Depression CT head 06/18/15: - diffuse atrophy unchanged. No acute intracranial findings Continue cognitive and pain meds. Malnutrition/protein calorie - moderate Status post PEG Hemorrhoids Gastroesophageal reflux disease. Concern for hematemesis 12/05. GI evaluated pt. Gastroccult was negative and hemoglobin has been stable. - TF restarted at 35 ml/hr- tolerated - this goal rate- monitor- as has problems with recurrent aspiration. - Current Colace/senna for bowel regimen. - continue PPI.- Prevacid. Bilateral lower extremity Contractures Stage II DU - Wound care following - Continue physical therapy GI prophylaxis: PPI. Stool softener PRN constipation. DVT PPx: Lovenox CM ff - placement Claire Queen MD Jan 07, 2016 12:12
--- NOTE | 2016-01-07 12:49 | HHI.PR ---
Subjective Remarks Awake and lethargic. and 0n a T bar FIO2 28 % . Sat 97. On tube feeds at 35 CC. No fever. Objective Vital Signs Date Time Temp Pulse Resp B/P Pulse Ox O2 Delivery O2 Flow Rate FiO2 01/07/16 12:00 Bi-Pap 25 01/07/16 12:00 80 01/07/16 10:00 90 01/07/16 08:29 95 T-piece 6.00 28 01/07/16 08:00 Bi-Pap 25 01/07/16 08:00 82 01/07/16 06:00 82 01/07/16 04:17 97 25 01/07/16 04:00 70 01/07/16 04:00 96.7 70 23 109/74 96 01/07/16 04:00 Bi-Pap 01/07/16 02:00 78 01/07/16 00:55 96 25 01/07/16 00:00 T-Piece 28 01/07/16 00:00 86 01/07/16 00:00 97.0 86 22 93/58 96 01/06/16 22:12 97 25 01/06/16 22:12 100 BiPAP 01/06/16 22:00 76 01/06/16 20:00 97.4 81 121/82 98 01/06/16 20:00 98 Nasal Cannula 8.00 28 01/06/16 20:00 81 01/06/16 20:00 T-Piece 8.00 28 01/06/16 18:00 78 01/06/16 16:00 77 01/06/16 16:00 97 T-Piece 01/06/16 16:00 98.0 77 20 103/69 97 01/06/16 14:00 71 I/O 01/06/16 01/06/16 01/06/16 01/07/16 01/07/16 01/07/16 07:00 15:00 23:00 07:00 15:00 23:00 Intake Total 1045 ml 786 ml 482 ml 647 ml Output Total 750 ml 1400 ml 425 ml 600 ml Balance 295 ml -614 ml 57 ml 47 ml Intake Oral 0 ml IV Total 345 ml 293 ml 288 ml 247 ml Tube Feeding 300 ml 293 ml 194 ml Tube Irrigant 400 ml 200 ml Other 400 ml Output Urine Total 750 ml 1400 ml 425 ml 600 ml # Bowel Movements 1 0 1 Result Diagram: 01/04/16 0625 Objective Remarks This is a thin white male who is , awake with a trach tube in place. HEENT: Pupils are equal and reactive to light. CHEST:Decreased breath sounds, .No Crackles. occ wheeze. CARDIOVASCULAR: S1 and S2 is normal.No murmur. ABDOMEN: Soft, nondistended. BS +. He has a PEG tube in place. EXTREMITIES: Contractures.muscle wasting. NEURO: Awake and has weak extremities. Skin is cool. Assessment and Plan Assessment and Plan IMPRESSION 1. Chronic Respiratory failure. 2. Sepsis, Aspiration. Improved 3. Left basal Pneumonia 4. Tracheobronchitis 5. Parkinson's disease 6. Dementia. 7. Severe Deconditioning. Plan : 1. Continue on Bipap 06/20, FIo2 28 % at HS 2. Nebs Bid , duoneb. 3. Cont tube feeds Jevity at 40 CC 4. T Bar 28 % daytime. 5. Levsin .25 mg tid prn for Secretions 6. Cont Trach toilet and lavage. 7. Transfer to tele 8. PT for activity/Postural drainage qid. 1 Darren Kiser MD Jan 07, 2016 12:49
[2016-01-07] MEDS: OLANZapine 5 MG TAB GT SCH (21:00)
[2016-01-08] VITALS (9 sets, daily range): BP systolic 98–133; BP diastolic 69–92; PULSE 86–100; RESP 18–24; TEMP 96.5–98.3; O2SAT 94–98
[2016-01-08] MEDS: DEXT 5%-NACL 0.9% 1000 ML INJ 1,000 ML IV SCH (00:45)
[2016-01-08] MEDS: INSULIN NovoLIN REGULAR SUPPLEMENTAL SCALE SQ SCH ×4 (05:50→18:37)
[2016-01-08] MEDS: CARBIDOPA/LEVODOPA 25 MG/100 MG TAB GT SCH ×3 (05:50→22:00)
[2016-01-08] MEDS: clonazePAM 1 MG TAB PO SCH ×3 (05:50→22:00)
[2016-01-08] MEDS: FREE WATER G-TUBE SCH ×4 (06:00→18:00)
[2016-01-08] MEDS: CHLORHEXIDINE 0.12% (ORAL KIT) 15 ML CUP MT SCH ×2 (08:00→20:00)
[2016-01-08] MEDS: POTASSIUM CHLORIDE 10 MEQ CAP G-TUBE SCH (09:00)
[2016-01-08] MEDS: QUEtiapine FUMARATE 25 MG TAB G-TUBE SCH ×2 (09:52→21:00)
[2016-01-08] MEDS: LACTOBACILLUS ACIDOPHILUS TAB PO SCH ×3 (09:52→18:36)
[2016-01-08] MEDS: LANSOPRAZOLE SOLUTAB 30 MG TAB NG SCH (09:52)
[2016-01-08] MEDS: GABAPENTIN 300 MG CAP G-TUBE SCH ×2 (09:53→21:00)
[2016-01-08] MEDS: PARoxetine HCL 20 MG TAB G-TUBE SCH (09:53)
[2016-01-08] MEDS: MIDODRINE 5 MG TAB G-TUBE SCH ×2 (09:53→21:00)
[2016-01-08] MEDS: predniSONE 5 MG TAB PO SCH (09:54)
[2016-01-08] MEDS: COLLAGENASE OINT 30 GM TUBE TOP SCH (09:55)
[2016-01-08] MEDS: ARTIFICIAL TEARS OPTH SOLN 15 ML BTL EACH EYE SCH ×3 (09:55→18:36)
[2016-01-08] MEDS: SODIUM CHLORIDE 0.9% FLUSH 5 ML FLUSH IVF SCH ×2 (09:57→21:00)
--- NOTE | 2016-01-08 16:27 | HHI.PR ---
Subjective Remarks tolerating tube feedings Objective Vitals Vital Signs Date Time Temp Pulse Resp B/P Pulse Ox O2 Delivery O2 Flow Rate FiO2 01/08/16 12:00 96.8 86 24 113/77 95 01/08/16 09:50 97 T-Piece 01/08/16 08:44 98.3 86 24 121/84 97 01/08/16 07:30 98 T-piece 01/08/16 05:39 98.3 94 19 133/79 95 01/08/16 03:11 95 25 01/08/16 00:15 97.1 100 19 98/72 94 01/07/16 23:00 25 01/07/16 21:54 95 25 01/07/16 21:45 96.8 88 19 102/84 96 01/07/16 18:05 96.6 109 24 118/80 96 I/O 01/07/16 01/07/16 01/07/16 01/08/16 01/08/16 01/08/16 07:00 15:00 23:00 07:00 15:00 23:00 Intake Total 647 ml 1236 ml 700 ml Output Total 600 ml 800 ml 1300 ml Balance 47 ml 436 ml 700 ml -1300 ml Intake Oral 0 ml IV Total 247 ml 305 ml 400 ml Tube Feeding 531 ml 300 ml Other 400 ml 400 ml Output Urine Total 600 ml 800 ml 1300 ml # Bowel Movements 1 1 1 Result Diagram: 01/04/16624 Imaging Last Impressions Chest X-Ray 01/04/16599 Signed Impressions: Service Date/Time: Monday, January 04, 2016 03:15 - CONCLUSION: No appreciable change. Eugene Schmid MD Abdomen X-Ray 12/07/15 06 Signed Impressions: Service Date/Time: Monday, December 07, 2015 03:40 - CONCLUSION: No dilated loops of small or large bowel. Tai Jaquez MD Abdomen Ultrasound 12/06/15 0000 Signed Impressions: Service Date/Time: Sunday, December 06, 2015 17:42 - CONCLUSION: 1. The gallbladder is unremarkable with no evidence of cholelithiasis. 2. Simple cyst in the left kidney. 3. Mild pyelocaliectasis in the right kidney. Salazar Thurman MD Upper Extremity Ultrasound 10/13/15 0000 Signed Impressions: Service Date/Time: Tuesday, October 13, 2015 09:51 - CONCLUSION: 1. No evidence of deep venous thrombosis. John Anderson MD Renal Ultrasound 10/07/15 0000 Signed Impressions: Service Date/Time: Wednesday, October 07, 2015 18:29 - CONCLUSION: 1. No acute findings. 3.6 cm left renal cyst. Valdez catheter in bladder. Amaury Ellsworth MD Tunnelled Chest Tube Removal 08/05/15 1100 Signed Impressions: Service Date/Time: Wednesday, August 05, 2015 11:00 - CONCLUSION: Uncomplicated chest tube removal. Blaine Jackson MD Chest Tube Change 07/31/15 0000 Signed Impressions: Service Date/Time: Friday, July 31, 2015 14:34 - CONCLUSION: Uncomplicated reposition of previously placed chest tube as above. Blaine Jackson MD Chest Tube Insertion 07/30/15 0000 Signed Impressions: Service Date/Time: July 14:50 - CONCLUSION: Uncomplicated chest tube placement as above. Blaine Jackson MD Catheter Change 07/27/15 0000 Signed Impressions: Service Date/Time: Monday, July 27, 2015 14:43 - CONCLUSION: Uncomplicated gastrostomy tube exchange as above. Blaine Jackson MD Chest CT 07/11/15 0000 Signed Impressions: Service Date/Time: Saturday, July 11, 2015 09:49 - CONCLUSION: Scattered patchy densities significantly improved from previous study. Tiny anterior right basilar pneumothorax. Right-sided chest tube in good position. Néstor Matamoros MD Head CT 06/18/151902 Signed Impressions: Service Date/Time: June 19:31 - CONCLUSION: Diffuse atrophy unchanged. No acute intracranial findings. Kush Briscoe MD Abdomen/Pelvis CT 06/18/151902 Signed Impressions: Service Date/Time: June 19:36 - CONCLUSION: 1. Chronic nonspecific urinary bladder wall thickening. Bladder collapsed with Valdez catheter in place. 2. Chronic bilateral mid to lower lung zone groundglass opacity. 3. Nonobstructing left renal calculus. 4. Distended rectum. Kush Briscoe MD Objective Remarks pupils reactive, anicteric, trach in place - in t piece decrease breath sounds, no rales regular rhythm- good bowel sounds, PEG in place extremities - no edema both upper extremities- moves spontaneously lower extremities-flexion contractures sacral area - stage3 decubitus- examined 01/[address]- draining clear urine Procedures 07/26- PEG replacement 07/29- right pigtail catheter placement for new pneumothorax Date of Insertion: Dec 16, 2015 A/P Problem List: (1) Sepsis due to urinary tract infection ICD Code: A41.9 Status: Resolved (2) Acute respiratory failure ICD Code: J96.00 Status: Resolved (3) Chronic respiratory failure ICD Code: J96.10 Status: Chronic (4) Parkinson disease ICD Code: G20 Status: Chronic (5) UTI (urinary tract infection) ICD Code: N39.0 Status: Acute (6) Encephalopathy ICD Code: G93.40 Status: Resolved Assessment and Plan S/P Sepsis shock Recurrent Aspiration. - Infectious disease following. S/P Zosyn course 01/01. Chronic respiratory failure- - tolerated T piece Chronic tracheostomy S/P recurrent Right pneumothorax status post pigtail catheter removal Suction secretions and Levsin as needed Duo nebs 4 times a day and when necessary. S/p colistin nebs and Solumedrol. Appreciate pulmonology following. Metabolic Encephalopathy - chronic Parkinson's disease Cognitive disorder/Underlying dementia Depression CT head 06/18/15: - diffuse atrophy unchanged. No acute intracranial findings Continue cognitive and pain meds. Malnutrition/protein calorie - moderate Status post PEG Hemorrhoids Gastroesophageal reflux disease. Concern for hematemesis 12/05. GI evaluated pt. Gastroccult was negative and hemoglobin has been stable. - TF restarted at 35 ml/hr- tolerated - this goal rate- monitor- as has problems with recurrent aspiration. - Current Colace/senna for bowel regimen. - continue PPI.- Prevacid. Bilateral lower extremity Contractures Stage II DU - Wound care team following - Continue physical therapy GI prophylaxis: PPI. Stool softener PRN constipation. DVT PPx: Lovenox CM ff - placement Claire Queen MD Jan 08, 2016 16:27
--- NOTE | 2016-01-08 18:35 | HHI.PR ---
Subjective Remarks Awake and lethargic. and 0n a T bar FIO2 28 % . Sat 97. On tube feeds at 35 CC. No fever. Good output. Objective Vital Signs Date Time Temp Pulse Resp B/P Pulse Ox O2 Delivery O2 Flow Rate FiO2 01/08/16 16:00 96.5 86 24 100/69 98 01/08/16 12:00 96.8 86 24 113/77 95 01/08/16 09:50 97 T-Piece 01/08/16 08:44 98.3 86 24 121/84 97 01/08/16 07:30 98 T-piece 01/08/16 05:39 98.3 94 19 133/79 95 01/08/16 03:11 95 25 01/08/16 00:15 97.1 100 19 98/72 94 01/07/16 23:00 25 01/07/16 21:54 95 25 01/07/16 21:45 96.8 88 19 102/84 96 I/O 01/07/16 01/07/16 01/07/16 01/08/16 01/08/16 01/08/16 06:59 14:59 22:59 06:59 14:59 22:59 Intake Total 647 ml 1236 ml 700 ml Output Total 600 ml 800 ml 1300 ml Balance 47 ml 436 ml 700 ml -1300 ml Intake Oral 0 ml IV Total 247 ml 305 ml 400 ml Tube Feeding 531 ml 300 ml Other 400 ml 400 ml Output Urine Total 600 ml 800 ml 1300 ml # Bowel Movements 1 1 1 Result Diagram: 01/04/16 0625 Objective Remarks This is a thin white male who is , awake with a trach tube in place. HEENT: Pupils are equal and reactive to light. CHEST:Decreased breath sounds, .No Crackles.or wheeze. CARDIOVASCULAR: S1 and S2 is normal.No murmur. ABDOMEN: Soft, nondistended. BS +. He has a PEG tube in place. EXTREMITIES: Contractures.muscle wasting. NEURO: Awake and has weak extremities. Skin is cool. Assessment and Plan Assessment and Plan IMPRESSION 1. Chronic Respiratory failure. 2. Sepsis, Aspiration. Improved 3. Left basal Pneumonia 4. Tracheobronchitis 5. Parkinson's disease 6. Dementia. 7. Severe Deconditioning. Plan : 1. Continue on Bipap 06/20, FIo2 25 % at HS 2. Nebs Bid , duoneb. 3. Cont tube feeds Jevity at 40 CC 4. T Bar 28 % daytime. 5. Levsin .25 mg tid prn for Secretions 6. Cont Trach toilet and lavage. 7. Labs on Monday 8. PT for activity/Postural drainage qid. 1 Darren Kiser MD Jan 08, 2016 18:34
[2016-01-08] MEDS: POTASSIUM CL 40 MEQ/30 ML LIQ UDC GT SCH (18:36)
[2016-01-08] MEDS: OLANZapine 5 MG TAB GT SCH (21:00)
[2016-01-09] VITALS (17 sets, daily range): BP systolic 80–134; BP diastolic 52–91; PULSE 85–126; RESP 24–51; TEMP 97.5–99.3; O2SAT 92–100
[2016-01-09] MEDS: RESP: ALBUTEROL 2.5 MG/3 ML NEB (PRN) NEB ×2 (00:23→02:00)
[2016-01-09] MEDS: LORazepam 2 MG/ML VIAL IVP PRN (01:07)
[2016-01-09] MEDS: MORPHINE SULFATE 4 MG/ML INJ IV PUSH PRN (01:53)
--- NOTE | 2016-01-09 03:01 | RADRPT ---
EXAM DATE/TIME: 01/09/2016 02:37 [facility] COMPARISON: CHEST SINGLE AP, January 04, 2016, 3:15. INDICATIONS : Pt extremely short of breath, Evaluate lungs after respiratory failure. MEDICAL HISTORY : Hypertension. Gastroesophageal reflux disease. Diabetes mellitus type II. SURGICAL HISTORY : Tracheostomy ENCOUNTER: Initial ACUITY: 1 day PAIN SCORE: Non-responsive. LOCATION: Bilateral chest FINDINGS: A rotated AP view of the chest demonstrates a normal-sized cardiac silhouette. Tracheostomy is presen t and overlies the tracheal air shadow. There is airspace consolidation in the retrocardiac/left lowe r lung zone. No pneumothorax or pleural effusion is identified. CONCLUSION: Air space consolidation in the left lower lobe. Although nonspecific this could represent an infectio us process in the appropriate clinical setting. Erlin Barajas MD on January 09, 2016 at 2:58 Board Certified Radiologist. This report was verified electronically.
[2016-01-09 03:41] LABS: AUTOMATED NEUTROPHIL # 12.1 TH/MM3 (1.8-7.7); BASOPHIL # 0.1 TH/MM3 (0-0.2); BASOPHIL % 0.5 % (0.0-2.0); EOSINOPHIL # 0.1 TH/MM3 (0-0.4); EOSINOPHIL % 0.6 % (0.0-4.0); HEMO FLAGS DIFF FINAL; LYMPH % 12.1 % (9.0-44.0); LYMPHOCYTE # 1.9 TH/MM3 (1.0-4.8); MEAN CELL VOLUME 84.8 FL (80.0-100.0); MEAN CORPUSCULAR HEMOGLOBIN 27.7 PG (27.0-34.0); MEAN CORPUSCULAR HGB CONC 32.7 % (32.0-36.0); NEUT % 77.8 % (16.0-70.0); PLATELET COUNT 265 TH/MM3 (150-450); RED BLOOD COUNT 4.13 MIL/MM3 (4.50-5.90); RED CELL DISTRIBUTION WIDTH 15.2 % (11.6-17.2); WHITE BLOOD COUNT 15.5 TH/MM3 (4.0-11.0)
[2016-01-09] MEDS ORDERED: SODIUM CHLORID 0.9% 500 ML INJ 500 ML IV ONE (03:45)
[2016-01-09 03:51] LABS: BICARBONATE 28.2 MEQ/L (21.0-32.0); MAGNESIUM 1.8 MG/DL (1.5-2.5)
[2016-01-09] MEDS ORDERED: Vancomycin Consult Pharmacy 1 EA OTHER SCH (04:00)
[2016-01-09] MEDS ORDERED: PIPERACIL-TAZO 4.5 GM PREMIX 100 ML IV SCH (04:00)
[2016-01-09] MEDS ORDERED: VANCOMYCIN INJ 1,000 MG in SODIUM CHLOR 0.9% 250 ML INJ 250 ML IV ONE (04:00)
[2016-01-09] MEDS ORDERED: SODIUM CHLOR 0.9% 1000 ML INJ 1,000 ML IV ONE ×2 (05:00→06:15)
[2016-01-09] MEDS: FREE WATER G-TUBE SCH ×4 (05:16→18:00)
[2016-01-09] MEDS: INSULIN NovoLIN REGULAR SUPPLEMENTAL SCALE SQ SCH ×5 (06:00→23:01)
[2016-01-09] MEDS: clonazePAM 1 MG TAB PO SCH ×3 (06:00→23:01)
[2016-01-09] MEDS: CARBIDOPA/LEVODOPA 25 MG/100 MG TAB GT SCH ×3 (06:00→23:00)
[2016-01-09] MEDS: CHLORHEXIDINE 0.12% (ORAL KIT) 15 ML CUP MT SCH ×2 (08:00→23:00)
[2016-01-09] MEDS: QUEtiapine FUMARATE 25 MG TAB G-TUBE SCH ×2 (08:38→23:00)
[2016-01-09] MEDS: LANSOPRAZOLE SOLUTAB 30 MG TAB NG SCH (08:38)
[2016-01-09] MEDS: LACTOBACILLUS ACIDOPHILUS TAB PO SCH ×3 (08:38→18:31)
[2016-01-09] MEDS: PARoxetine HCL 20 MG TAB G-TUBE SCH (08:38)
[2016-01-09] MEDS: MIDODRINE 5 MG TAB G-TUBE SCH ×2 (08:39→23:00)
[2016-01-09] MEDS: GABAPENTIN 300 MG CAP G-TUBE SCH ×2 (08:39→22:59)
[2016-01-09] MEDS: predniSONE 5 MG TAB PO SCH (08:39)
[2016-01-09] MEDS: ARTIFICIAL TEARS OPTH SOLN 15 ML BTL EACH EYE SCH ×3 (08:43→18:00)
[2016-01-09] MEDS: COLLAGENASE OINT 30 GM TUBE TOP SCH (09:00)
[2016-01-09] MEDS: SODIUM CHLORIDE 0.9% FLUSH 5 ML FLUSH IVF SCH ×2 (09:00→23:00)
[2016-01-09] MEDS: RESP: ALBUTEROL 2.5 MG/IPRATROPIUM 0.5 MG NEB (SCH) NEB ×3 (09:55→21:27)
--- NOTE | 2016-01-09 11:03 | HHI.PR ---
Subjective Remarks appears comfortable no tachypnea, no tachycardia tolerating tube feedings minimal secretions Objective Vitals Vital Signs Date Time Temp Pulse Resp B/P Pulse Ox O2 Delivery O2 Flow Rate FiO2 01/09/16 08:37 Bi-Pap 01/09/16 08:23 98.7 94 26 89/65 100 01/09/16 08:12 98 40 01/09/16 06:30 104 27 82/58 97 01/09/16 05:22 99.3 01/09/16 05:10 97 40 01/09/16 05:00 101 80/52 97 01/09/16 02:30 98.7 126 51 93/66 92 01/09/16 01:50 Bi-Pap 40 01/09/16 01:00 Bi-Pap 01/09/16 00:50 96 25 01/09/16 00:00 97.5 103 45 134/91 96 01/08/16 20:45 98 25 01/08/16 20:00 97.9 91 18 126/92 97 01/08/16 16:00 96.5 86 24 100/69 98 01/08/16 12:30 Bi-Pap 01/08/16 12:00 96.8 86 24 113/77 95 I/O 01/08/16 01/08/16 01/08/16 01/09/16 01/09/16 01/09/16 07:00 15:00 23:00 07:00 15:00 23:00 Intake Total 700 ml Output Total 1300 ml 1450 ml 200 ml Balance 700 ml -1300 ml -1450 ml -200 ml IV Total 400 ml Tube Feeding 300 ml Output Urine Total 1300 ml 1450 ml 200 ml # Bowel Movements 1 1 1 Result Diagram: 01/09/16 0300 01/09/16 0300 Imaging Last 72 hours Impressions Chest X-Ray 01/09/16 0000 Signed Impressions: Service Date/Time: Saturday, January 09, 2016 02:37 - CONCLUSION: Air space consolidation in the left lower lobe. Although nonspecific this could represent an infectious process in the appropriate clinical setting. Erlin Barajas MD Objective Remarks pupils reactive, anicteric, trach in place - in t piece decrease breath sounds, no rales regular rhythm- good bowel sounds, PEG in place extremities - no edema both upper extremities- moves spontaneously lower extremities-flexion contractures sacral area - stage3 decubitus- examined 01/[address]- draining clear urine Procedures 07/26- PEG replacement 07/29- right pigtail catheter placement for new pneumothorax Date of Insertion: Dec 16, 2015 A/P Problem List: (1) Sepsis due to urinary tract infection ICD Code: A41.9 Status: Resolved (2) Acute respiratory failure ICD Code: J96.00 Status: Resolved (3) Chronic respiratory failure ICD Code: J96.10 Status: Chronic (4) Parkinson disease ICD Code: G20 Status: Chronic (5) UTI (urinary tract infection) ICD Code: N39.0 Status: Acute (6) Encephalopathy ICD Code: G93.40 Status: Resolved Assessment and Plan S/P Sepsis shock Recurrent Aspiration.- tachypneic 01/07 evening ? Non resolving pneumonia -repeat CXR shows left lower lobe consolidation, WBC elevated restarted on antibiotics- Vancomycin 01/07, Levaquin IV 12.3 - send sputum for cultures - Infectious disease following. S/P Zosyn course 01/01. Chronic respiratory failure- - tolerated T piece Chronic tracheostomy S/P recurrent Right pneumothorax status post pigtail catheter removal Suction secretions and Levsin as needed Duo nebs 4 times a day and when necessary. S/p colistin nebs and Solumedrol. Appreciate pulmonology following. Metabolic Encephalopathy - chronic Parkinson's disease Cognitive disorder/Underlying dementia Depression CT head 06/18/15: - diffuse atrophy unchanged. No acute intracranial findings Continue cognitive and pain meds. Malnutrition/protein calorie - moderate Status post PEG Hemorrhoids Gastroesophageal reflux disease. Concern for hematemesis 12/05. GI evaluated pt. Gastroccult was negative and hemoglobin has been stable. - TF- tolerated - this goal rate- monitor- as has problems with recurrent aspiration. - Current Colace/senna for bowel regimen. - continue PPI.- Prevacid. Bilateral lower extremity Contractures Stage II DU - Wound care team following - Continue physical therapy GI prophylaxis: PPI. Stool softener PRN constipation. DVT PPx: Lovenox CM ff - placement Claire Queen MD Jan 09, 2016 11:03
[2016-01-09] MEDS ORDERED: CEFEPIME INJ 1,000 MG in SODIUM CHLORIDE 0.9% INJ 100 ML IV SCH (11:15)
[2016-01-09] MEDS: POTASSIUM CL 40 MEQ/30 ML LIQ UDC GT SCH (11:24)
[2016-01-09] MEDS: LEVOFLOXACIN 500 MG PREMIX INJ 100 ML IV SCH (14:19)
[2016-01-09] MEDS: VANCOMYCIN 1,000 MG/NS 250 ML IV SCH ×2 (16:42)
[2016-01-09] MEDS: OLANZapine 5 MG TAB GT SCH (23:00)
[2016-01-10] VITALS (11 sets, daily range): BP systolic 88–110; BP diastolic 59–75; PULSE 76–100; RESP 20–26; TEMP 95.9–98.8; O2SAT 95–100
[2016-01-10] MEDS: FREE WATER G-TUBE SCH ×4 (00:40→18:00)
[2016-01-10] MEDS: RESP: ALBUTEROL 2.5 MG/IPRATROPIUM 0.5 MG NEB (SCH) NEB ×4 (04:24→21:30)
[2016-01-10] MEDS: VANCOMYCIN 1,000 MG/NS 250 ML IV SCH ×4 (04:33→17:11)
[2016-01-10] MEDS: INSULIN NovoLIN REGULAR SUPPLEMENTAL SCALE SQ SCH ×3 (06:00→18:00)
[2016-01-10] MEDS: CARBIDOPA/LEVODOPA 25 MG/100 MG TAB GT SCH ×3 (06:54→21:45)
[2016-01-10] MEDS: clonazePAM 1 MG TAB PO SCH ×3 (06:54→21:45)
[2016-01-10] MEDS: CHLORHEXIDINE 0.12% (ORAL KIT) 15 ML CUP MT SCH ×2 (08:00→21:45)
[2016-01-10] MEDS: GABAPENTIN 300 MG CAP G-TUBE SCH ×2 (08:08→21:45)
[2016-01-10] MEDS: MIDODRINE 5 MG TAB G-TUBE SCH ×2 (08:09→21:44)
[2016-01-10] MEDS: LACTOBACILLUS ACIDOPHILUS TAB PO SCH ×3 (08:10→19:57)
[2016-01-10] MEDS: PARoxetine HCL 20 MG TAB G-TUBE SCH (08:11)
[2016-01-10] MEDS: predniSONE 5 MG TAB PO SCH (08:32)
[2016-01-10] MEDS: POTASSIUM CL 40 MEQ/30 ML LIQ UDC GT SCH (08:33)
[2016-01-10] MEDS: QUEtiapine FUMARATE 25 MG TAB G-TUBE SCH ×2 (08:33→21:44)
[2016-01-10] MEDS: SODIUM CHLORIDE 0.9% FLUSH 5 ML FLUSH IVF SCH ×2 (09:00→21:00)
[2016-01-10] MEDS: COLLAGENASE OINT 30 GM TUBE TOP SCH (09:00)
[2016-01-10] MEDS: ARTIFICIAL TEARS OPTH SOLN 15 ML BTL EACH EYE SCH ×3 (09:00→18:00)
[2016-01-10] MEDS: LANSOPRAZOLE SOLUTAB 30 MG TAB NG SCH (09:00)
--- NOTE | 2016-01-10 11:48 | HHI.PR ---
Subjective Remarks Awake and remains lethargic. and 0n a T bar FIO2 28 % . Sat 96. On tube feeds at 35 CC. No fever. Objective Vital Signs Date Time Temp Pulse Resp B/P Pulse Ox O2 Delivery O2 Flow Rate FiO2 01/10/16 10:30 96 T-piece 8.00 28 01/10/16 08:10 Bi-Pap 01/10/16 08:00 98.1 97 26 94/64 100 01/10/16 08:00 99 40 01/10/16 06:00 98.0 100 25 104/59 99 01/10/16 05:19 98 Bi-Pap 01/10/16 04:29 95 40 01/10/16 02:40 82 92/61 01/10/16 01:11 97 40 01/10/16 00:00 98.8 96 24 88/62 98 01/09/16 22:00 98.1 90 24 97/58 98 01/09/16 21:41 97 40 01/09/16 21:28 98 BiPAP 40 01/09/16 20:01 Bi-Pap 01/09/16 18:22 94 99/60 94 01/09/16 16:36 97 40 01/09/16 16:30 Bi-Pap 01/09/16 16:19 97.7 86 26 88/59 96 01/09/16 12:00 97.8 85 26 85/56 97 01/09/16 12:00 Bi-Pap 01/09/16 11:48 97 40 I/O 01/09/16 01/09/16 01/09/16 01/10/16 01/10/16 01/10/16 07:00 15:00 23:00 07:00 15:00 23:00 Intake Total 2521 ml 0 ml Output Total 200 ml 850 ml 800 ml 1300 ml Balance -200 ml -850 ml 1721 ml -1300 ml Intake Oral 0 ml 0 ml IV Total 2521 ml Output Urine Total 200 ml 850 ml 800 ml 1300 ml # Bowel Movements 1 2 0 1 Result Diagram: 01/09/16 0300 01/09/16 0300 Objective Remarks This is a thin white male who is , awake with a trach tube in place. HEENT: Pupils are equal and reactive to light. CHEST:Decreased breath sounds, .No Crackle, but has a wheeze. CARDIOVASCULAR: S1 and S2 is normal.No murmur. ABDOMEN: Soft, nondistended. BS +. He has a PEG tube in place. EXTREMITIES: Contractures.muscle wasting. NEURO: Awake and has weak extremities. Skin is dry. Assessment and Plan Assessment and Plan IMPRESSION 1. Chronic Respiratory failure. 2. Sepsis, Aspiration. Improved 3. Left basal Pneumonia 4. Tracheobronchitis 5. Parkinson's disease 6. Dementia. 7. Severe Deconditioning. Plan : 1. Continue on Bipap 5/15, FIo2 25 % at HS 2. Nebs Bid , duoneb. 3. Cont tube feeds Jevity at 40 CC 4. T Bar 28 % daytime. 5. Levsin .25 mg tid prn for Secretions 6. Cont Trach toilet and lavage. 7. Labs on Monday 8. PT for activity/Postural drainage qid. 1 Darren Kiser MD Jan 10, 2016 11:48
[2016-01-10] MEDS: LEVOFLOXACIN 500 MG PREMIX INJ 100 ML IV SCH (13:20)
--- NOTE | 2016-01-10 13:22 | HHI.PR ---
Subjective Remarks patient states "fine" appears comfortalbe. tolerating tube feedings Objective Vitals Vital Signs Date Time Temp Pulse Resp B/P Pulse Ox O2 Delivery O2 Flow Rate FiO2 01/10/16 10:30 96 T-piece 8.00 28 01/10/16 08:10 Bi-Pap 01/10/16 08:00 98.1 97 26 94/64 100 01/10/16 08:00 99 40 01/10/16 06:00 98.0 100 25 104/59 99 01/10/16 05:19 98 Bi-Pap 01/10/16 04:29 95 40 01/10/16 02:40 82 92/61 01/10/16 01:11 97 40 01/10/16 00:00 98.8 96 24 88/62 98 01/09/16 22:00 98.1 90 24 97/58 98 01/09/16 21:41 97 40 01/09/16 21:28 98 BiPAP 40 01/09/16 20:01 Bi-Pap 01/09/16 18:22 94 99/60 94 01/09/16 16:36 97 40 01/09/16 16:30 Bi-Pap 01/09/16 16:19 97.7 86 26 88/59 96 I/O 01/09/16 01/09/16 01/09/16 01/10/16 01/10/16 01/10/16 06:59 14:59 22:59 06:59 14:59 22:59 Intake Total 2521 ml 0 ml Output Total 200 ml 850 ml 800 ml 1300 ml Balance -200 ml -850 ml 1721 ml -1300 ml Intake Oral 0 ml 0 ml IV Total 2521 ml Output Urine Total 200 ml 850 ml 800 ml 1300 ml # Bowel Movements 1 2 0 1 Result Diagram: 01/09/16 0300 01/09/16 0300 Imaging Last 72 hours Impressions Chest X-Ray 01/09/16 0000 Signed Impressions: Service Date/Time: Saturday, January 09, 2016 02:37 - CONCLUSION: Air space consolidation in the left lower lobe. Although nonspecific this could represent an infectious process in the appropriate clinical setting. Erlin Barajas MD Objective Remarks pupils reactive, anicteric, trach in place - in t piece decrease breath sounds, no rales regular rhythm- good bowel sounds, PEG in place extremities - no edema both upper extremities- moves spontaneously lower extremities-flexion contractures sacral area - stage3 decubitus- examined 01/[address]- draining clear urine Procedures 07/26- PEG replacement 07/29- right pigtail catheter placement for new pneumothorax Urinary Catheter: Yes Assessment to: Continue Valdez insert reason: Prolonged Immobilization Date of Insertion: Dec 16, 2015 A/P Problem List: (1) Sepsis due to urinary tract infection ICD Code: A41.9 Status: Resolved (2) Acute respiratory failure ICD Code: J96.00 Status: Resolved (3) Chronic respiratory failure ICD Code: J96.10 Status: Chronic (4) Parkinson disease ICD Code: G20 Status: Chronic (5) UTI (urinary tract infection) ICD Code: N39.0 Status: Acute (6) Encephalopathy ICD Code: G93.40 Status: Resolved Assessment and Plan S/P Sepsis shock Recurrent Aspiration.- tachypneic 01/07 evening -likely reaspirated again -repeat CXR shows left lower lobe consolidation, WBC elevated restarted on antibiotics- Vancomycin 01/07, Levaquin IV ./ - send sputum for cultures - Infectious disease following. S/P Zosyn course 01/01. Chronic respiratory failure- - tolerated T piece Chronic tracheostomy S/P recurrent Right pneumothorax status post pigtail catheter removal Suction secretions and Levsin as needed Duo nebs 4 times a day and when necessary. S/p colistin nebs and Solumedrol. Appreciate pulmonology following. Metabolic Encephalopathy - chronic Parkinson's disease Cognitive disorder/Underlying dementia Depression CT head 06/18/15: - diffuse atrophy unchanged. No acute intracranial findings Continue cognitive effortsand pain meds. Malnutrition/protein calorie - moderate Status post PEG Hemorrhoids Gastroesophageal reflux disease. Concern for hematemesis 12/05. GI evaluated pt. Gastroccult was negative and hemoglobin has been stable. - TF- tolerated - this goal rate- monitor- as has problems with recurrent aspiration. - Current Colace/senna for bowel regimen. - continue PPI.- Prevacid. Bilateral lower extremity Contractures Stage II DU - Wound care team following - Continue physical therapy GI prophylaxis: PPI. Stool softener PRN constipation. DVT PPx: Lovenox CM ff - placement Claire Queen MD Jan 10, 2016 13:22
[2016-01-10] MEDS ORDERED: PHARMACY ORDERED LAB XX ONE (15:45)
[2016-01-10] MEDS: OLANZapine 5 MG TAB GT SCH (21:45)
[2016-01-11] VITALS (9 sets, daily range): BP systolic 84–111; BP diastolic 58–78; PULSE 80–99; RESP 20–47; TEMP 97.1–98.7; O2SAT 96–100
[2016-01-11] MEDS: FREE WATER G-TUBE SCH ×5 (00:25→23:41)
[2016-01-11] MEDS: INSULIN NovoLIN REGULAR SUPPLEMENTAL SCALE SQ SCH ×5 (00:25→23:41)
[2016-01-11] MEDS: CARBIDOPA/LEVODOPA 25 MG/100 MG TAB GT SCH ×3 (05:27→21:51)
[2016-01-11] MEDS: VANCOMYCIN 1,000 MG/NS 250 ML IV SCH ×4 (05:27→16:00)
[2016-01-11] MEDS: clonazePAM 1 MG TAB PO SCH ×3 (05:27→21:51)
[2016-01-11] MEDS: GABAPENTIN 300 MG CAP G-TUBE SCH ×2 (08:45→21:51)
[2016-01-11] MEDS: LANSOPRAZOLE SOLUTAB 30 MG TAB NG SCH (08:45)
[2016-01-11] MEDS: QUEtiapine FUMARATE 25 MG TAB G-TUBE SCH ×2 (08:45→21:51)
[2016-01-11] MEDS: predniSONE 5 MG TAB PO SCH (08:45)
[2016-01-11] MEDS: MIDODRINE 5 MG TAB G-TUBE SCH ×2 (08:45→21:51)
[2016-01-11] MEDS: LACTOBACILLUS ACIDOPHILUS TAB PO SCH ×3 (08:45→17:17)
[2016-01-11] MEDS: PARoxetine HCL 20 MG TAB G-TUBE SCH (08:45)
[2016-01-11] MEDS: COLLAGENASE OINT 30 GM TUBE TOP SCH (08:45)
[2016-01-11] MEDS: POTASSIUM CL 40 MEQ/30 ML LIQ UDC GT SCH (08:46)
[2016-01-11] MEDS: SODIUM CHLORIDE 0.9% FLUSH 5 ML FLUSH IVF SCH ×2 (08:46→21:00)
[2016-01-11] MEDS: ARTIFICIAL TEARS OPTH SOLN 15 ML BTL EACH EYE SCH ×3 (08:47→17:17)
[2016-01-11] MEDS: CHLORHEXIDINE 0.12% (ORAL KIT) 15 ML CUP MT SCH ×2 (08:47→20:00)
[2016-01-11] MEDS: RESP: ALBUTEROL 2.5 MG/IPRATROPIUM 0.5 MG NEB (SCH) NEB ×3 (08:50→19:30)
[2016-01-11 10:36] LABS: BICARBONATE 28.4 MEQ/L (21.0-32.0); POTASSIUM 3.7 MEQ/L (3.5-5.1)
[2016-01-11] MEDS: LEVOFLOXACIN 500 MG PREMIX INJ 100 ML IV SCH (13:09)
[2016-01-11] MEDS ORDERED: PHARMACY ORDERED LAB XX ONE (15:45)
--- NOTE | 2016-01-11 18:48 | HHI.PR ---
Subjective Remarks Awake and remains lethargic.Responds to some questions weakly. and 0n a T bar FIO2 28 % . Sat 96. On tube feeds at 35 CC. On IV fluids at 75CC Objective Vital Signs Date Time Temp Pulse Resp B/P Pulse Ox O2 Delivery O2 Flow Rate FiO2 01/11/16 17:07 98.0 89 20 90/58 98 01/11/16 12:51 97.5 98 20 103/72 100 01/11/16 08:50 100 T-piece 6.00 28 01/11/16 08:43 97.1 86 22 84/60 100 01/11/16 06:27 T-Piece 28 01/11/16 05:00 98.0 84 22 99/70 98 01/11/16 01:25 99 40 01/11/16 01:25 99 BiPAP 40 01/11/16 00:45 97.7 80 22 104/67 97 01/11/16 00:15 T-Piece 28 01/10/16 21:32 98 40 01/10/16 21:15 98.8 76 20 107/68 99 01/10/16 20:51 T-Piece 28 I/O 01/10/16 01/10/16 01/10/16 01/11/16 01/11/16 01/11/16 07:00 15:00 23:00 07:00 15:00 23:00 Intake Total 0 ml 0 ml 0 ml Output Total 1300 ml 2475 ml 800 ml 450 ml Balance -1300 ml -2475 ml -800 ml 0 ml -450 ml Intake Oral 0 ml 0 ml 0 ml Output Urine Total 1300 ml 2475 ml 800 ml 450 ml # Bowel Movements 1 2 2 1 Result Diagram: 01/09/16 0300 01/11/16 0925 Objective Remarks This is a thin white male who is , awake with a trach tube in place. HEENT: Pupils are equal and reactive to light. CHEST:Decreased breath sounds, .Occ Basal Crackles CARDIOVASCULAR: S1 and S2 is normal.No murmur. ABDOMEN: Soft, nondistended. BS +. He has a PEG tube in place. EXTREMITIES: Contractures.muscle wasting. NEURO: Awake and has weak extremities. Skin is dry. Assessment and Plan Assessment and Plan IMPRESSION 1. Chronic Respiratory failure. 2. Sepsis, Aspiration. Improved 3. Left basal Pneumonia 4. Tracheobronchitis 5. Parkinson's disease 6. Dementia. 7. Severe Deconditioning. Plan : 1. Continue on Bipap 06/20, FIo2 25 % at HS 2. Nebs Bid , duoneb. 3. Cont tube feeds Jevity at 40 CC 4. T Bar 28 % daytime. 5. Levsin .25 mg tid prn for Secretions 6. Cont Trach toilet and lavage. 7.Reduce IV to 50 CC. 8. PT for activity/Postural drainage qid. 1 Darren Kiser MD Jan 11, 2016 18:48
[2016-01-11] MEDS: OLANZapine 5 MG TAB GT SCH (21:51)
--- NOTE | 2016-01-11 22:02 | HHI.PR ---
Subjective Remarks patient seen today around 11 AM. No acute changes per nursing. No aspiration events. Patient nonverbal, unable to adequately communicate. Objective Vital Signs Date Time Temp Pulse Resp B/P Pulse Ox O2 Delivery O2 Flow Rate FiO2 01/11/16 17:07 98.0 89 20 90/58 98 01/11/16 12:51 97.5 98 20 103/72 100 01/11/16 08:50 100 T-piece 6.00 28 01/11/16 08:43 97.1 86 22 84/60 100 01/11/16 07:30 98 Bi-Pap 01/11/16 06:27 T-Piece 28 01/11/16 05:00 98.0 84 22 99/70 98 01/11/16 01:25 99 40 01/11/16 01:25 99 BiPAP 40 01/11/16 00:45 97.7 80 22 104/67 97 01/11/16 00:15 T-Piece 28 I/O 01/10/16 01/10/16 01/10/16 01/11/16 01/11/16 01/11/16 07:00 15:00 23:00 07:00 15:00 23:00 Intake Total 0 ml 0 ml 0 ml 1535 ml Output Total 1300 ml 2475 ml 800 ml 1300 ml 1225 ml Balance -1300 ml -2475 ml -800 ml 0 ml -1300 ml 310 ml Intake Oral 0 ml 0 ml 0 ml IV Total 768 ml Tube Feeding 367 ml Other 400 ml Output Urine Total 1300 ml 2475 ml 800 ml 1300 ml 1225 ml # Bowel Movements 1 2 2 1 Result Diagram: 01/09/16 0300 01/11/16 0925 Objective Remarks GENERAL: patient lying in bed. Appears comfortable. Follows with eyes. Patient does intermittently move lower lip, however not sure this is intentional. SKIN: Warm and dry. HEAD: Normocephalic. EYES: No scleral icterus. No injection or drainage. NECK: Supple, trachea midline. No JVD or lymphadenopathy. CARDIOVASCULAR: Regular rate and rhythm without murmurs, gallops, or rubs. RESPIRATORY: Breath sounds equal bilaterally. No accessory muscle use. GASTROINTESTINAL: Abdomen soft, non-tender, nondistended. MUSCULOSKELETAL: No cyanosis, or edema. PEG tube in place. No stranding erythema. Small amount of crust. Discussed with nursing BACK: Nontender without obvious deformity. No CVA tenderness. A/P Assessment and Plan ===== 01/10 No new changes. Patient tolerating tube feeds. White count recently increased, however no fevers. No aspiration episodes reported by nursing. Continue monitor. S/P Sepsis shock Recurrent Aspiration.- tachypneic 01/07 evening -likely reaspirated again -repeat CXR shows left lower lobe consolidation, WBC elevated restarted on antibiotics- Vancomycin 01/07, Levaquin IV ./ - send sputum for cultures - Infectious disease following. S/P Zosyn course 01/01. - White count increased, however no fevers. Continue monitor. Chronic respiratory failure- - tolerated T piece Chronic tracheostomy S/P recurrent Right pneumothorax status post pigtail catheter removal Suction secretions and Levsin as needed Duo nebs 4 times a day and when necessary. S/p colistin nebs and Solumedrol. Appreciate pulmonology following. Metabolic Encephalopathy - chronic Parkinson's disease Cognitive disorder/Underlying dementia Depression CT head 06/18/15: - diffuse atrophy unchanged. No acute intracranial findings Continue cognitive effortsand pain meds. Malnutrition/protein calorie - moderate Status post PEG Hemorrhoids Gastroesophageal reflux disease. Concern for hematemesis 12/05. GI evaluated pt. Gastroccult was negative and hemoglobin has been stable. - TF- tolerated - this goal rate- monitor- as has problems with recurrent aspiration. - Current Colace/senna for bowel regimen. - continue PPI.- Prevacid. Bilateral lower extremity Contractures Stage II DU - Wound care team following - Continue physical therapy GI prophylaxis: PPI. Stool softener PRN constipation. DVT PPx: Lovenox CM ff - placement Josiah Junior MD Jan 11, 2016 22:02
[2016-01-11] MEDS ORDERED: VANCOMYCIN 1,000 MG/NS 250 ML IV SCH ×2 (23:00)
[2016-01-12] VITALS (15 sets, daily range): BP systolic 83–117; BP diastolic 57–78; PULSE 86–129; RESP 20–44; TEMP 95.9–100.7; O2SAT 94–100
[2016-01-12] MEDS: RESP: ALBUTEROL 2.5 MG/IPRATROPIUM 0.5 MG NEB (SCH) NEB ×4 (04:53→21:01)
[2016-01-12] MEDS: FREE WATER G-TUBE SCH ×2 (06:00→11:12)
[2016-01-12] MEDS: INSULIN NovoLIN REGULAR SUPPLEMENTAL SCALE SQ SCH ×3 (06:00→18:00)
[2016-01-12] MEDS: CARBIDOPA/LEVODOPA 25 MG/100 MG TAB GT SCH ×4 (06:12→21:42)
[2016-01-12] MEDS: clonazePAM 1 MG TAB PO SCH ×4 (06:12→21:42)
[2016-01-12] MEDS: LANSOPRAZOLE SOLUTAB 30 MG TAB NG SCH (08:13)
[2016-01-12] MEDS: QUEtiapine FUMARATE 25 MG TAB G-TUBE SCH ×2 (08:13→21:00)
[2016-01-12] MEDS: GABAPENTIN 300 MG CAP G-TUBE SCH ×2 (08:13→21:00)
[2016-01-12] MEDS: predniSONE 5 MG TAB PO SCH (08:13)
[2016-01-12] MEDS: ARTIFICIAL TEARS OPTH SOLN 15 ML BTL EACH EYE SCH ×3 (08:14→18:07)
[2016-01-12] MEDS: SODIUM CHLORIDE 0.9% FLUSH 5 ML FLUSH IVF SCH ×2 (08:14→21:00)
[2016-01-12] MEDS: COLLAGENASE OINT 30 GM TUBE TOP SCH (08:14)
[2016-01-12] MEDS: LACTOBACILLUS ACIDOPHILUS TAB PO SCH ×4 (08:14→18:00)
[2016-01-12] MEDS: MIDODRINE 5 MG TAB G-TUBE SCH ×2 (08:14→21:43)
[2016-01-12] MEDS: PARoxetine HCL 20 MG TAB G-TUBE SCH (08:14)
[2016-01-12] MEDS: CHLORHEXIDINE 0.12% (ORAL KIT) 15 ML CUP MT SCH (08:15)
[2016-01-12 10:46] LABS: AUTOMATED NEUTROPHIL # 8.6 TH/MM3 (1.8-7.7); BASOPHIL % 0.4 % (0.0-2.0); EOSINOPHIL # 0.3 TH/MM3 (0-0.4); EOSINOPHIL % 2.4 % (0.0-4.0); HEMATOCRIT 30.9 % (39.0-51.0); HEMO FLAGS DIFF FINAL; LYMPH % 9.5 % (9.0-44.0); MEAN CELL VOLUME 84.8 FL (80.0-100.0); MEAN CORPUSCULAR HEMOGLOBIN 27.9 PG (27.0-34.0); MONO % 5.8 % (0.0-8.0); NEUT % 81.9 % (16.0-70.0); PLATELET COUNT 239 TH/MM3 (150-450); RED BLOOD COUNT 3.65 MIL/MM3 (4.50-5.90); WHITE BLOOD COUNT 10.5 TH/MM3 (4.0-11.0)
[2016-01-12] MEDS: POTASSIUM CL 40 MEQ/30 ML LIQ UDC GT SCH (11:12)
[2016-01-12] MEDS: LEVOFLOXACIN 500 MG PREMIX INJ 100 ML IV SCH (13:25)
[2016-01-12] MEDS ORDERED: PHARMACY ORDERED LAB XX ONE (16:45)
[2016-01-12 17:37] LABS: ALT (GPT) 19 U/L (12-78); ANION GAP 8 MEQ/L (5-15); AST (GOT) 18 U/L (15-37); BLOOD UREA NITROGEN 6 MG/DL (7-18); CHLORIDE 104 MEQ/L (98-107); GLOMERULAR FILTRATION RATE 196 ML/MIN (>89); POTASSIUM 4.3 MEQ/L (3.5-5.1); SODIUM (NA) 140 MEQ/L (136-145)
[2016-01-12 17:39] LABS: ALKALINE PHOSPHATASE 63 U/L (45-117); TOTAL BILIRUBIN ADULT 0.3 MG/DL (0.2-1.0)
--- NOTE | 2016-01-12 18:01 | HHI.PR ---
Subjective Remarks Awake and lethargic.Responds to some questions weakly. and 0n a T bar FIO2 28 % . Sat 95 On tube feeds at 35 CC. On IV fluids at 75CC Objective Vital Signs Date Time Temp Pulse Resp B/P Pulse Ox O2 Delivery O2 Flow Rate FiO2 01/12/16 16:05 99.5 104 22 112/65 96 01/12/16 15:30 99.5 114 20 112/65 96 01/12/16 15:27 94 T-piece 6.00 40 01/12/16 14:38 98.5 104 22 117/78 95 01/12/16 12:38 97.5 104 20 96/59 98 01/12/16 10:24 99 T-piece 40 01/12/16 08:22 95.9 86 20 114/76 97 01/12/16 04:00 97.8 99 40 110/70 99 01/12/16 03:00 97 40 01/12/16 00:40 96 40 01/12/16 00:00 97.8 98 25 103/70 97 01/11/16 20:45 96 40 01/11/16 20:00 98.7 99 47 111/78 99 I/O 01/11/16 01/11/16 01/11/16 01/12/16 01/12/16 01/12/16 06:59 14:59 22:59 06:59 14:59 22:59 Intake Total 0 ml 1535 ml Output Total 1300 ml 2225 ml 1000 ml Balance 0 ml -1300 ml -690 ml -1000 ml Intake Oral 0 ml IV Total 768 ml Tube Feeding 367 ml Other 400 ml Output Urine Total 1300 ml 2225 ml 1000 ml # Bowel Movements 1 1 Result Diagram: 01/12/16 1033 01/12/16 1626 Objective Remarks This is a thin white male who is , awake with a trach tube in place. HEENT: Pupils are equal and reactive to light. CHEST:Decreased breath sounds, Few wheezes heard. CARDIOVASCULAR: S1 and S2 is normal.No murmur. ABDOMEN: Soft, nondistended. BS +. He has a PEG tube in place. EXTREMITIES: Contractures.muscle wasting. NEURO: Awake and has weak extremities. Skin is dry. Assessment and Plan Assessment and Plan IMPRESSION 1. Chronic Respiratory failure. 2. Sepsis, Aspiration. Improved 3. Left basal Pneumonia 4. Tracheobronchitis 5. Parkinson's disease 6. Dementia. 7. Severe Deconditioning. Plan : 1. Continue on Bipap 5/15, FIo2 30 % at HS 2. Nebs Bid , duoneb. 3. Cont tube feeds Jevity at 40 CC 4. T Bar 35 % daytime. 5. Levsin .25 mg tid prn for Secretions 6. Cont Trach toilet and lavage. 7.Reduce IV to 50 CC. 8. PT for activity/Postural drainage qid. 1 Darren Kiser MD Jan 12, 2016 18:01
--- NOTE | 2016-01-12 18:04 | RADRPT ---
EXAM DATE/TIME: 01/12/2016 17:35 [facility] COMPARISON: ABDOMEN KUB ONLY, December 07, 2015, 3:40. INDICATIONS : Vomiting. MEDICAL HISTORY : Hypertension. Gastroesophageal reflux disease. Diabetes mellitus type II. SURGICAL HISTORY : Tracheostomy ENCOUNTER: Subsequent ACUITY: 4 - 6 months PAIN SCORE: Non-responsive. LOCATION: Left abdomen FINDINGS: There is appearance of a PEG tube in the upper abdomen. Bowel distribution is normal without dilatati on. There is no evidence of free air. CONCLUSION: No evidence of obstruction or free air. Reyes Jewell MD on January 12, 2016 at 18:01 Board Certified Radiologist. This report was verified electronically.
[2016-01-12] MEDS: VANCOMYCIN INJ 750 MG in SODIUM CHLOR 0.9% 250 ML INJ 250 ML IV SCH (18:07)
--- NOTE | 2016-01-12 18:08 | RADRPT ---
EXAM DATE/TIME: 01/12/2016 17:27 [facility] COMPARISON: CHEST SINGLE AP, January 09, 2016, 2:37. INDICATIONS : Shortness of breath. MEDICAL HISTORY : Hypertension. Gastroesophageal reflux disease. Diabetes mellitus type II. SURGICAL HISTORY : Tracheostomy ENCOUNTER: Subsequent ACUITY: 4 - 6 months PAIN SCORE: Non-responsive. LOCATION: Bilateral chest FINDINGS: Base is again noted to be slightly rotated with a tracheostomy in place and marked coarsening of basi lar markings on the left. No pneumothorax is appreciated. No consolidative infiltrate CONCLUSION: Stable chest as described Reyes Jewell MD on January 12, 2016 at 18:05 Board Certified Radiologist. This report was verified electronically.
[2016-01-12] MEDS: LORazepam 2 MG/ML VIAL IVP PRN ×2 (18:47→22:14)
[2016-01-12] MEDS: OLANZapine 5 MG TAB GT SCH (21:42)
--- NOTE | 2016-01-12 22:29 | HHI.PR ---
Subjective Remarks patient seen today around noon. No acute changes per nursing. No aspiration events. Later called around 6 PM by nursing to notify the patient had episode of vomiting, however does not appear to have aspirated. Chest x-ray, AP abdomen ordered. Tube feeds discontinued, with PEG tube to low intermittent wall suction. Objective Vital Signs Date Time Temp Pulse Resp B/P Pulse Ox O2 Delivery O2 Flow Rate FiO2 01/12/16 21:27 99 85 01/12/16 20:00 100.7 112 24 106/59 99 01/12/16 18:10 100.4 129 22 83/57 95 01/12/16 17:10 T-Piece 7.00 01/12/16 16:05 99.5 104 22 112/65 96 01/12/16 15:30 99.5 114 20 112/65 96 01/12/16 15:27 94 T-piece 6.00 40 01/12/16 14:38 98.5 104 22 117/78 95 01/12/16 12:38 97.5 104 20 96/59 98 01/12/16 10:24 99 T-piece 40 01/12/16 08:22 95.9 86 20 114/76 97 01/12/16 07:15 Bi-Pap 01/12/16 04:00 97.8 99 40 110/70 99 01/12/16 03:00 97 40 01/12/16 00:40 96 40 01/12/16 00:00 97.8 98 25 103/70 97 I/O 01/11/16 01/11/16 01/11/16 01/12/16 01/12/16 01/12/16 07:00 15:00 23:00 07:00 15:00 23:00 Intake Total 0 ml 1535 ml Output Total 1300 ml 2225 ml 1000 ml 250 ml Balance 0 ml -1300 ml -690 ml -1000 ml -250 ml Intake Oral 0 ml IV Total 768 ml Tube Feeding 367 ml Other 400 ml Output Urine Total 1300 ml 2225 ml 1000 ml 250 ml # Bowel Movements 1 1 Result Diagram: 01/12/16 1033 01/12/16 1626 Objective Remarks GENERAL: patient lying in bed. Appears comfortable. does not open eyes today. Patient does intermittently move lower lip, however not sure this is intentional.otherwise no changes. SKIN: Warm and dry. HEAD: Normocephalic. EYES: No scleral icterus. No injection or drainage. NECK: Supple, trachea midline. No JVD or lymphadenopathy. CARDIOVASCULAR: Regular rate and rhythm without murmurs, gallops, or rubs. RESPIRATORY: Breath sounds equal bilaterally. No accessory muscle use. GASTROINTESTINAL: Abdomen soft, non-tender, nondistended. MUSCULOSKELETAL: No cyanosis, or edema. 12/5PEG tube in place. No surrounding erythema. Small amount of crust. . BACK: Nontender without obvious deformity. No CVA tenderness. A/P Assessment and Plan ===== 01/11 patient with episode of vomiting this afternoon. Chest x-ray an AP abdomen negative. Stop tube feeds, back on IV fluids. PEG tube to low intermittent wall suction. Patient likely has episode of aspiration pneumonitis. Already on vancomycin and Levaquin. Reviewed recent sputum cultures. Really sensitive to nothing except Zosyn.would be best to save Zosyn for when patient actually has infection , not just pneumonitis. -monitor closely tonight. if any worsening in condition, will need to start Zosyn. -could consider postpyloric feedings, placement of J. port, which would prevent these episodes of aspiration. Will discuss with gastroenterology tomorrow. S/P Sepsis shock Recurrent Aspiration.- tachypneic 01/07 evening -likely reaspirated again -repeat CXR shows left lower lobe consolidation, WBC elevated restarted on antibiotics- Vancomycin 01/07, Levaquin IV ./ - send sputum for cultures - Infectious disease following. S/P Zosyn course 01/01. - White count increased, however no fevers. Continue monitor. Chronic respiratory failure- - tolerated T piece Chronic tracheostomy S/P recurrent Right pneumothorax status post pigtail catheter removal Suction secretions and Levsin as needed Duo nebs 4 times a day and when necessary. S/p colistin nebs and Solumedrol. Appreciate pulmonology following. Metabolic Encephalopathy - chronic Parkinson's disease Cognitive disorder/Underlying dementia Depression CT head 06/18/15: - diffuse atrophy unchanged. No acute intracranial findings Continue cognitive effortsand pain meds. Malnutrition/protein calorie - moderate Status post PEG Hemorrhoids Gastroesophageal reflux disease. Concern for hematemesis 12/05. GI evaluated pt. Gastroccult was negative and hemoglobin has been stable. - TF- tolerated - this goal rate- monitor- as has problems with recurrent aspiration. - Current Colace/senna for bowel regimen. - continue PPI.- Prevacid. Bilateral lower extremity Contractures Stage II DU - Wound care team following - Continue physical therapy GI prophylaxis: PPI. Stool softener PRN constipation. DVT PPx: Lovenox CM ff - placement Josiah Junior MD Jan 12, 2016 22:29
[2016-01-12] MEDS ORDERED: SODIUM CHLORID 0.9% 500 ML INJ 500 ML IV ONE (22:30)
[2016-01-13] VITALS (12 sets, daily range): BP systolic 83–114; BP diastolic 52–80; PULSE 69–105; RESP 16–45; TEMP 95.4–99.2; O2SAT 95–100
[2016-01-13] MEDS: VANCOMYCIN INJ 750 MG in SODIUM CHLOR 0.9% 250 ML INJ 250 ML IV SCH ×2 (01:34→12:21)
[2016-01-13] MEDS: RESP: ALBUTEROL 2.5 MG/IPRATROPIUM 0.5 MG NEB (SCH) NEB (03:32)
[2016-01-13] MEDS: CARBIDOPA/LEVODOPA 25 MG/100 MG TAB GT SCH ×2 (05:54→12:19)
[2016-01-13] MEDS: clonazePAM 1 MG TAB PO SCH ×2 (05:54→12:19)
[2016-01-13] MEDS: INSULIN NovoLIN REGULAR SUPPLEMENTAL SCALE SQ SCH ×4 (06:00→17:43)
[2016-01-13] MEDS: D5-1/2 NS + KCL 10 MEQ INJ 1,000 ML IV SCH ×2 (06:20→07:42)
[2016-01-13 07:08] LABS: BICARBONATE 28.7 MEQ/L (21.0-32.0); POTASSIUM 3.7 MEQ/L (3.5-5.1)
[2016-01-13 07:10] LABS: MEAN CELL VOLUME 85.3 FL (80.0-100.0); MEAN CORPUSCULAR HEMOGLOBIN 27.3 PG (27.0-34.0); PLATELET COUNT 230 TH/MM3 (150-450); RED BLOOD COUNT 3.75 MIL/MM3 (4.50-5.90); RED CELL DISTRIBUTION WIDTH 15.4 % (11.6-17.2); WHITE BLOOD COUNT 19.6 TH/MM3 (4.0-11.0)
[2016-01-13 07:11] LABS: HEMO FLAGS AUTO DIFF
[2016-01-13 07:48] LABS: BANDS 20 % (0-6); BASOPHILS 1 % (0-2); EOSINOPHILS 2 % (0-4); NEUTROPHIL # MANUAL DIFF 15.3 TH/MM3 (1.8-7.7); POLYS (SEG NEUTROPHILS) 58 % (16-70); WBC DIFF SAMPLE 100
[2016-01-13 07:49] LABS: OVALOCYTES 1+ (NORMAL); PLATELET ESTIMATE SMEAR NORMAL (NORMAL); PLATELET MORPHOLOGY NORMAL (NORMAL); SCAN/DIFF FINAL DIFF MANUAL
[2016-01-13] MEDS: CHLORHEXIDINE 0.12% (ORAL KIT) 15 ML CUP MT SCH ×2 (08:00→20:00)
[2016-01-13] MEDS: MIDODRINE 5 MG TAB G-TUBE SCH (08:27)
[2016-01-13] MEDS: LACTOBACILLUS ACIDOPHILUS TAB PO SCH ×3 (08:27→17:44)
[2016-01-13] MEDS: PARoxetine HCL 20 MG TAB G-TUBE SCH (08:27)
[2016-01-13] MEDS: QUEtiapine FUMARATE 25 MG TAB G-TUBE SCH (08:27)
[2016-01-13] MEDS: predniSONE 5 MG TAB PO SCH (08:28)
[2016-01-13] MEDS: POTASSIUM CL 40 MEQ/30 ML LIQ UDC GT SCH (08:28)
[2016-01-13] MEDS: SODIUM CHLORIDE 0.9% FLUSH 5 ML FLUSH IVF SCH (08:28)
[2016-01-13] MEDS: GABAPENTIN 300 MG CAP G-TUBE SCH (08:28)
[2016-01-13] MEDS: LANSOPRAZOLE SOLUTAB 30 MG TAB NG SCH (08:28)
[2016-01-13] MEDS: ARTIFICIAL TEARS OPTH SOLN 15 ML BTL EACH EYE SCH ×3 (08:28→17:43)
[2016-01-13] MEDS: COLLAGENASE OINT 30 GM TUBE TOP SCH (08:29)
[2016-01-13] MEDS ORDERED: SODIUM CHLORID 0.9% 500 ML INJ 500 ML IV ONE (08:45)
[2016-01-13] MEDS: LEVOFLOXACIN 500 MG PREMIX INJ 100 ML IV SCH (12:17)
--- NOTE | 2016-01-13 15:34 | HHI.GIFU ---
Subjective Remarks Reconsulted for inability to tolerate tube feeding/vomiting. Pt resting in bed in no distress. PEG tube to LIWS- small amount of bilious material. Does not appear to have any tenderness on exam. (Bernie Hill) Objective Vitals I&O Vital Signs Date Time Temp Pulse Resp B/P Pulse Ox O2 Delivery O2 Flow Rate FiO2 01/13/16 12:04 95.5 76 16 114/80 95 01/13/16 10:55 96 T-piece 5.00 28 01/13/16 08:05 96.5 78 16 83/53 97 01/13/16 06:00 98.7 80 22 86/52 99 01/13/16 04:37 100 80 01/13/16 04:00 99.2 92 24 99/59 100 01/13/16 02:00 96.5 98 38 106/60 100 01/13/16 01:03 100 85 01/13/16 00:00 99.2 105 45 101/62 100 01/12/16 22:30 97.8 110 44 114/68 100 01/12/16 21:27 99 85 01/12/16 20:00 100.7 112 24 106/59 99 01/12/16 18:10 100.4 129 22 83/57 95 01/12/16 17:10 T-Piece 7.00 01/12/16 16:05 99.5 104 22 112/65 96 01/12/16 15:30 99.5 114 20 112/65 96 I/O 01/12/16 01/12/16 01/12/16 01/13/16 01/13/16 01/13/16 06:59 14:59 22:59 06:59 14:59 22:59 Intake Total 266 ml 1100 ml Output Total 1000 ml 400 ml 500 ml Balance -1000 ml -134 ml 600 ml IV Total 266 ml 1000 ml Tube Irrigant 100 ml Output Urine Total 1000 ml 250 ml 500 ml Gastric Drainage Total 150 ml 0 ml # Bowel Movements 1 1 Laboratory Laboratory Tests Test 01/12/16 01/13/16 16:26 06:18 Sodium Level 140 140 Potassium Level 4.3 3.7 Chloride Level 104 105 Carbon Dioxide Level 28.0 28.7 Anion Gap 8 6 Blood Urea Nitrogen 6 8 Creatinine 0.45 0.46 Estimat Glomerular Filtration 196 192 Rate Random Glucose 105 107 Calcium Level 9.4 9.1 Total Bilirubin 0.3 Aspartate Amino Transf 18 (AST/SGOT) Alanine Aminotransferase 19 (ALT/SGPT) Alkaline Phosphatase 63 Total Protein 6.5 Albumin 2.5 White Blood Count 19.6 Red Blood Count 3.75 Hemoglobin 10.2 Hematocrit 32.0 Mean Corpuscular Volume 85.3 Mean Corpuscular Hemoglobin 27.3 Mean Corpuscular Hemoglobin 32.0 Concent Red Cell Distribution Width 15.4 Platelet Count 230 Mean Platelet Volume 10.1 Neutrophils (%) (Auto) Lymphocytes (%) (Auto) Monocytes (%) (Auto) Eosinophils (%) (Auto) Basophils (%) (Auto) Neutrophils # (Auto) Lymphocytes # (Auto) Monocytes # (Auto) Eosinophils # (Auto) Basophils # (Auto) CBC Comment AUTO DIFF Differential Total Cells 100 Counted Neutrophils % (Manual) 58 Band Neutrophils % 20 Lymphocytes % 10 Monocytes % 9 Eosinophils % 2 Basophils % 1 Neutrophils # (Manual) 15.3 Differential Comment FINAL DIFF MANUAL Platelet Estimate NORMAL Platelet Morphology Comment NORMAL Ovalocytes 1+ Hematology Comments Date/Time Procedure Status Source Growth 01/09/16 17:51 Gram Stain - Final Complete Sputum Endotracheal 01/09/16 17:51 Sputum Culture - Final Complete Pseudomonas Aeruginosa Klebsiella Pneumoniae Esbl Pos 01/09/16 06:54 Aerobic Blood Culture - Preliminary Resulted Blood Peripheral NO GROWTH IN 4 DAYS 01/09/16 06:54 Anaerobic Blood Culture - Preliminary Resulted Blood Peripheral NO GROWTH IN 4 DAYS Imaging Last Impressions Abdomen X-Ray 01/12/16 1628 Signed Impressions: Service Date/Time: Tuesday, January 12, 2016 17:35 - CONCLUSION: No evidence of obstruction or free air. Reyes Jewell MD Chest X-Ray 01/12/16 0000 Signed Impressions: Service Date/Time: Tuesday, January 12, 2016 17:27 - CONCLUSION: Stable chest as described Reyes Jewell MD Abdomen Ultrasound 12/06/15 0000 Signed Impressions: Service Date/Time: Sunday, December 06, 2015 17:42 - CONCLUSION: 1. The gallbladder is unremarkable with no evidence of cholelithiasis. 2. Simple cyst in the left kidney. 3. Mild pyelocaliectasis in the right kidney. Salazar Thurman MD Upper Extremity Ultrasound 10/13/15 0000 Signed Impressions: Service Date/Time: Tuesday, October 13, 2015 09:51 - CONCLUSION: 1. No evidence of deep venous thrombosis. John Anderson MD Renal Ultrasound 10/07/15 0000 Signed Impressions: Service Date/Time: Wednesday, October 07, 2015 18:29 - CONCLUSION: 1. No acute findings. 3.6 cm left renal cyst. Putnam catheter in bladder. Amaury Ellsworth MD Tunnelled Chest Tube Removal 08/05/15 1100 Signed Impressions: Service Date/Time: Wednesday, August 05, 2015 11:00 - CONCLUSION: Uncomplicated chest tube removal. Blaine Jackson MD Chest Tube Change 07/31/15 0000 Signed Impressions: Service Date/Time: Friday, July 31, 2015 14:34 - CONCLUSION: Uncomplicated reposition of previously placed chest tube as above. Blaine Jackson MD Chest Tube Insertion 07/30/15 0000 Signed Impressions: Service Date/Time: July 14:50 - CONCLUSION: Uncomplicated chest tube placement as above. Blaine Jackson MD Catheter Change 07/27/15 0000 Signed Impressions: Service Date/Time: Monday, July 27, 2015 14:43 - CONCLUSION: Uncomplicated gastrostomy tube exchange as above. Blaine Jackson MD Chest CT 07/11/15 0000 Signed Impressions: Service Date/Time: Saturday, July 11, 2015 09:49 - CONCLUSION: Scattered patchy densities significantly improved from previous study. Tiny anterior right basilar pneumothorax. Right-sided chest tube in good position. Néstor Matamoros MD Head CT 06/18/151902 Signed Impressions: Service Date/Time: June 19:31 - CONCLUSION: Diffuse atrophy unchanged. No acute intracranial findings. Kush Briscoe MD Abdomen/Pelvis CT 06/18/151902 Signed Impressions: Service Date/Time: June 19:36 - CONCLUSION: 1. Chronic nonspecific urinary bladder wall thickening. Bladder collapsed with Putnam catheter in place. 2. Chronic bilateral mid to lower lung zone groundglass opacity. 3. Nonobstructing left renal calculus. 4. Distended rectum. Kush Briscoe MD Physical Exam General: Patient is bedbound, contracted. Neck: Trach in place with T Bar Chest: Decreased breath sounds Cardiac: Regular Abd: PEG tube in place to LIWS,bowel sounds present, soft nondistended Ext: Contractures of the upper and lower extremities Putnam cath in place (Bernie Hill) Assessment and Plan Plan ASSESSMENT: - Reconsulted for inability to tolerate tube feeding, vomiting. TF was placed on hold and PEG is now to LIWS- draining small amount of bilious material. He does not seem to have any abdominal distention. KUB ( 01/12/16)----> No evidence of obstruction or free air. + BMs. Will add reglan/bethanechol and start trickle feeds- if no improvement and vomiting persists, consider converting PEG to G/J tube. Cont. PPI. - Acute on chronic respiratory failure on BiPAP and T-piece, Pulmonary following. - Parkinson's disease/dementia. Chronically debilitated. Palliative Care following. PLAN: - Trickle Feeds - Cont. PPI - Hold on reglan secondary to multiple drug interactions - Bethanechol 10mg per peg q8h - Monitor Stool output - If no improvement, consider converting PEG to G/J tube - Supportive care - Pt was seen and examined by myself and Dr. Kimbrough and this note was written on his behalf. (Bernie Hill) Physician Comments Seen and examined with Ms. Liz HERNÁNDEZ, agree with above. May need to have J tube placement. Discussed with the nurse at the bedside. Will follow, thank you (Beronica Kimbrough MD) Bernie Hill Jan 13, 2016 15:34 Beronica Kimbrough MD Jan 13, 2016 16:46
--- NOTE | 2016-01-13 19:04 | HHI.PR ---
Subjective Remarks Awake and lethargic. Responds to some questions . and 0n a T bar FIO2 28 % On tube feeds at 35 CC. Objective Vital Signs Date Time Temp Pulse Resp B/P Pulse Ox O2 Delivery O2 Flow Rate FiO2 01/13/16 16:05 95.4 69 18 106/71 97 01/13/16 12:04 95.5 76 16 114/80 95 01/13/16 10:55 96 T-piece 5.00 28 01/13/16 08:05 96.5 78 16 83/53 97 01/13/16 06:00 98.7 80 22 86/52 99 01/13/16 04:37 100 80 01/13/16 04:00 99.2 92 24 99/59 100 01/13/16 02:00 96.5 98 38 106/60 100 01/13/16 01:03 100 85 01/13/16 00:00 99.2 105 45 101/62 100 01/12/16 22:30 97.8 110 44 114/68 100 01/12/16 21:27 99 85 01/12/16 20:00 100.7 112 24 106/59 99 I/O 01/12/16 01/12/16 01/12/16 01/13/16 01/13/16 01/13/16 07:00 15:00 23:00 07:00 15:00 23:00 Intake Total 266 ml 1100 ml Output Total 1000 ml 400 ml 500 ml Balance -1000 ml -134 ml 600 ml IV Total 266 ml 1000 ml Tube Irrigant 100 ml Output Urine Total 1000 ml 250 ml 500 ml Gastric Drainage Total 150 ml 0 ml # Bowel Movements 1 1 Result Diagram: 01/13/1618 01/13/1618 Objective Remarks This is a thin white male who is , awake with a trach tube in place. HEENT: Pupils are equal and reactive to light. CHEST:Decreased breath sounds, Few wheezes heard. CARDIOVASCULAR: S1 and S2 is normal.No murmur. ABDOMEN: Soft, nondistended. BS +. He has a PEG tube in place. EXTREMITIES: Contractures.muscle wasting. NEURO: Awake and has weak extremities. Skin is dry. Assessment and Plan Assessment and Plan IMPRESSION 1. Chronic Respiratory failure. 2. Sepsis, Aspiration. Improved 3. Left basal Pneumonia 4. Tracheobronchitis 5. Parkinson's disease 6. Dementia. 7. Severe Deconditioning. Plan : 1. Continue on Bipap 06/20, FIo2 28 % at HS 2. Nebs Bid , duoneb. 3. Cont tube feeds Jevity at 40 CC 4. T Bar 30 % daytime. 5. Levsin .25 mg tid prn for Secretions 6. Cont Trach toilet and lavage. 7. PT for activity/Postural drainage qid. 1 Darren Kiser MD Jan 13, 2016 19:04
--- NOTE | 2016-01-13 22:44 | HHI.PR ---
Subjective Remarks patient seen today around 11 AM. Appears comfortable. Discussed with nursing. No acute changes today. No further aspiration events. PEG tube continues to low intermittent suction. Objective Vital Signs Date Time Temp Pulse Resp B/P Pulse Ox O2 Delivery O2 Flow Rate FiO2 01/13/16 20:31 96.9 79 20 106/76 98 01/13/16 16:05 95.4 69 18 106/71 97 01/13/16 12:04 95.5 76 16 114/80 95 01/13/16 10:55 96 T-piece 5.00 28 01/13/16 08:05 96.5 78 16 83/53 97 01/13/16 06:00 98.7 80 22 86/52 99 01/13/16 04:37 100 80 01/13/16 04:00 99.2 92 24 99/59 100 01/13/16 02:00 96.5 98 38 106/60 100 01/13/16 01:03 100 85 01/13/16 00:00 99.2 105 45 101/62 100 I/O 01/12/16 01/12/16 01/12/16 01/13/16 01/13/16 01/13/16 07:00 15:00 23:00 07:00 15:00 23:00 Intake Total 266 ml 1100 ml Output Total 1000 ml 400 ml 500 ml 700 ml Balance -1000 ml -134 ml 600 ml -700 ml IV Total 266 ml 1000 ml Tube Irrigant 100 ml Output Urine Total 1000 ml 250 ml 500 ml 700 ml Gastric Drainage Total 150 ml 0 ml # Bowel Movements 1 1 1 Result Diagram: 01/13/1618 01/13/1618 Objective Remarks GENERAL: patient lying in bed. Appears comfortable. does not open eyes today. PEG tube to low intermittent wall suction. SKIN: Warm and dry. HEAD: Normocephalic. EYES: No scleral icterus. No injection or drainage. NECK: Supple, trachea midline. No JVD or lymphadenopathy. CARDIOVASCULAR: Regular rate and rhythm without murmurs, gallops, or rubs. RESPIRATORY: Breath sounds equal bilaterally. No accessory muscle use. GASTROINTESTINAL: Abdomen soft, non-tender, nondistended. MUSCULOSKELETAL: No cyanosis, or edema. 12/5PEG tube in place. No surrounding erythema. Small amount of crust. . BACK: Nontender without obvious deformity. No CVA tenderness. A/P Assessment and Plan ===== 01/12 status post suspected aspiration event 01/12. No changes on chest x-ray. She was at that time, however none since. Blood pressure low overnight, however acceptable today. - Appreciate GI assistance regarding possible conversion to GJ tube. -consult to neurology. patient's patient did state supposedly due to Parkinson' s, however patient is on submaximal treatment. S/P Sepsis shock Recurrent Aspiration.- tachypneic 01/07 evening -likely reaspirated again -repeat CXR shows left lower lobe consolidation, WBC elevated restarted on antibiotics- Vancomycin 01/07, Levaquin IV ./ - send sputum for cultures - Infectious disease following. S/P Zosyn course 01/01. - White count increased, however no fevers. Continue monitor. Chronic respiratory failure- - tolerated T piece Chronic tracheostomy S/P recurrent Right pneumothorax status post pigtail catheter removal Suction secretions and Levsin as needed Duo nebs 4 times a day and when necessary. S/p colistin nebs and Solumedrol. Appreciate pulmonology following. Metabolic Encephalopathy - chronic Parkinson's disease Cognitive disorder/Underlying dementia Depression CT head 06/18/15: - diffuse atrophy unchanged. No acute intracranial findings Continue cognitive effortsand pain meds. Malnutrition/protein calorie - moderate Status post PEG Hemorrhoids Gastroesophageal reflux disease. Concern for hematemesis 12/05. GI evaluated pt. Gastroccult was negative and hemoglobin has been stable. - TF- tolerated - this goal rate- monitor- as has problems with recurrent aspiration. - Current Colace/senna for bowel regimen. - continue PPI.- Prevacid. Bilateral lower extremity Contractures Stage II DU - Wound care team following - Continue physical therapy GI prophylaxis: PPI. Stool softener PRN constipation. DVT PPx: Lovenox CM ff - placement Josiah Junior MD Jan 13, 2016 22:44
[2016-01-14] VITALS (10 sets, daily range): BP systolic 106–137; BP diastolic 65–76; PULSE 84–101; RESP 16–24; TEMP 95.5–98.1; O2SAT 96–99
[2016-01-14 07:37] LABS: BASOPHIL # 0.1 TH/MM3 (0-0.2); BASOPHIL % 0.7 % (0.0-2.0); EOSINOPHIL # 0.4 TH/MM3 (0-0.4); EOSINOPHIL % 2.1 % (0.0-4.0); HEMATOCRIT 36.1 % (39.0-51.0); HEMO FLAGS DIFF FINAL; LYMPH % 7.1 % (9.0-44.0); LYMPHOCYTE # 1.2 TH/MM3 (1.0-4.8); MEAN CELL VOLUME 85.5 FL (80.0-100.0); MEAN CORPUSCULAR HEMOGLOBIN 27.7 PG (27.0-34.0); MEAN CORPUSCULAR HGB CONC 32.4 % (32.0-36.0); MONO % 4.4 % (0.0-8.0); NEUT % 85.7 % (16.0-70.0); PLATELET COUNT 277 TH/MM3 (150-450); RED BLOOD COUNT 4.22 MIL/MM3 (4.50-5.90); RED CELL DISTRIBUTION WIDTH 15.2 % (11.6-17.2); WHITE BLOOD COUNT 17.4 TH/MM3 (4.0-11.0)
[2016-01-14 08:01] LABS: BICARBONATE 25.4 MEQ/L (21.0-32.0); POTASSIUM 4.1 MEQ/L (3.5-5.1)
[2016-01-14] MEDS: D5-1/2 NS + KCL 10 MEQ INJ 1,000 ML IV SCH ×2 (08:42→21:12)
[2016-01-14] MEDS: SODIUM CHLORIDE 0.9% FLUSH 5 ML FLUSH IVF SCH ×2 (09:00→21:00)
[2016-01-14] MEDS: COLLAGENASE OINT 30 GM TUBE TOP SCH (09:00)
[2016-01-14] MEDS: GABAPENTIN 300 MG CAP G-TUBE SCH ×2 (10:10→21:58)
[2016-01-14] MEDS: ARTIFICIAL TEARS OPTH SOLN 15 ML BTL EACH EYE SCH ×3 (10:10→18:08)
[2016-01-14] MEDS: PARoxetine HCL 20 MG TAB G-TUBE SCH (10:11)
[2016-01-14] MEDS: MIDODRINE 5 MG TAB G-TUBE SCH ×2 (10:11→21:58)
[2016-01-14] MEDS: LANSOPRAZOLE SOLUTAB 30 MG TAB NG SCH (10:11)
[2016-01-14] MEDS: QUEtiapine FUMARATE 25 MG TAB G-TUBE SCH ×2 (10:11→21:58)
[2016-01-14] MEDS: LACTOBACILLUS ACIDOPHILUS TAB PO SCH ×3 (10:11→18:08)
[2016-01-14] MEDS: predniSONE 5 MG TAB PO SCH (10:11)
[2016-01-14] MEDS: POTASSIUM CL 40 MEQ/30 ML LIQ UDC GT SCH (10:14)
[2016-01-14] MEDS: INSULIN NovoLIN REGULAR SUPPLEMENTAL SCALE SQ SCH ×3 (12:00→18:00)
[2016-01-14] MEDS: LEVOFLOXACIN 500 MG PREMIX INJ 100 ML IV SCH (12:30)
--- NOTE | 2016-01-14 12:49 | HHI.PR ---
Subjective Remarks Awake and remains lethargic. Responds to some questions . and 0n a T bar FIO2 28 % On tube feeds at 35 CC. Good output Objective Vital Signs Date Time Temp Pulse Resp B/P Pulse Ox O2 Delivery O2 Flow Rate FiO2 01/14/16 12:24 97 T-piece 40 01/14/16 10:31 98 T-Piece 7.00 28 01/14/16 08:04 98.1 101 22 111/73 98 01/14/16 04:37 98 40 01/14/16 04:00 96.5 90 24 115/65 97 01/14/16 01:19 98 40 01/14/16 00:19 96.8 88 22 129/67 98 01/13/16 22:33 98 40 01/13/16 20:31 96.9 79 20 106/76 98 01/13/16 20:25 Bi-Pap 01/13/16 16:05 95.4 69 18 106/71 97 I/O 01/13/16 01/13/16 01/13/16 01/14/16 01/14/16 01/14/16 07:00 15:00 23:00 07:00 15:00 23:00 Intake Total 1100 ml Output Total 500 ml 700 ml 200 ml 300 ml Balance 600 ml -700 ml -200 ml -300 ml IV Total 1000 ml Tube Irrigant 100 ml Output Urine Total 500 ml 700 ml 200 ml 300 ml Gastric Drainage Total 0 ml # Bowel Movements 1 1 0 1 Result Diagram: 01/14/16 0708 01/14/16 0708 Objective Remarks This is a thin white male who is , awake with a trach tube in place. HEENT: Pupils are equal and reactive to light. CHEST:Decreased breath sounds, occ crackles on left. CARDIOVASCULAR: S1 and S2 is normal.No murmur. ABDOMEN: Soft, nondistended. BS +. He has a PEG tube in place. EXTREMITIES: Contractures.muscle wasting. NEURO: Awake and has weak extremities. Skin is dry. Assessment and Plan Assessment and Plan IMPRESSION 1. Chronic Respiratory failure. 2. Sepsis, Aspiration. Improved 3. Left basal Pneumonia 4. Tracheobronchitis 5. Parkinson's disease 6. Dementia. 7. Severe Deconditioning. Plan : 1. Continue on Bipap 15, FIo2 30 % at HS 2. Nebs Bid , duoneb. 3. Cont tube feeds Jevity at 40 CC 4. T Bar 35 % daytime. 5. Levsin .25 mg tid prn for Secretions 6. Cont Trach toilet and lavage. 7. PT for activity/Postural drainage qid. 1 Darren Kiser MD Jan 14, 2016 12:49
[2016-01-14] MEDS: CARBIDOPA/LEVODOPA 25 MG/100 MG TAB GT SCH ×2 (14:47→21:59)
[2016-01-14] MEDS: VANCOMYCIN INJ 750 MG in SODIUM CHLOR 0.9% 250 ML INJ 250 ML IV SCH (14:47)
[2016-01-14] MEDS: BETHANECHOL CHL 10 MG TAB PO SCH ×2 (14:48→21:56)
[2016-01-14] MEDS: clonazePAM 1 MG TAB PO SCH ×2 (14:48→21:59)
--- NOTE | 2016-01-14 15:48 | HHI.GIFU ---
Subjective Remarks Resting in bed. No distress. Tolerating trickle feeds. (Bernie Hill) Objective Vitals I&O Vital Signs Date Time Temp Pulse Resp B/P Pulse Ox O2 Delivery O2 Flow Rate FiO2 01/14/16 13:18 96 T-Piece 7.00 28 01/14/16 12:24 97 T-piece 40 01/14/16 12:05 95.5 94 20 106/76 96 01/14/16 10:31 98 T-Piece 7.00 28 01/14/16 08:04 98.1 101 22 111/73 98 01/14/16 04:37 98 40 01/14/16 04:00 96.5 90 24 115/65 97 01/14/16 01:19 98 40 01/14/16 00:19 96.8 88 22 129/67 98 01/13/16 22:33 98 40 01/13/16 20:31 96.9 79 20 106/76 98 01/13/16 20:25 Bi-Pap 01/13/16 16:05 95.4 69 18 106/71 97 I/O 01/13/16 01/13/16 01/13/16 01/14/16 01/14/16 01/14/16 07:00 15:00 23:00 07:00 15:00 23:00 Intake Total 1100 ml Output Total 500 ml 700 ml 200 ml 300 ml Balance 600 ml -700 ml -200 ml -300 ml IV Total 1000 ml Tube Irrigant 100 ml Output Urine Total 500 ml 700 ml 200 ml 300 ml Gastric Drainage Total 0 ml # Bowel Movements 1 1 0 1 1 Laboratory Laboratory Tests Test 01/14/16 07:08 White Blood Count 17.4 Red Blood Count 4.22 Hemoglobin 11.7 Hematocrit 36.1 Mean Corpuscular Volume 85.5 Mean Corpuscular Hemoglobin 27.7 Mean Corpuscular Hemoglobin 32.4 Concent Red Cell Distribution Width 15.2 Platelet Count 277 Mean Platelet Volume 9.9 Neutrophils (%) (Auto) 85.7 Lymphocytes (%) (Auto) 7.1 Monocytes (%) (Auto) 4.4 Eosinophils (%) (Auto) 2.1 Basophils (%) (Auto) 0.7 Neutrophils # (Auto) 15.0 Lymphocytes # (Auto) 1.2 Monocytes # (Auto) 0.8 Eosinophils # (Auto) 0.4 Basophils # (Auto) 0.1 CBC Comment DIFF FINAL Differential Comment Sodium Level 138 Potassium Level 4.1 Chloride Level 101 Carbon Dioxide Level 25.4 Anion Gap 12 Blood Urea Nitrogen 9 Creatinine 0.49 Estimat Glomerular Filtration 178 Rate Random Glucose 50 Calcium Level 10.1 Date/Time Procedure Status Source Growth 01/09/16 17:51 Gram Stain - Final Complete Sputum Endotracheal 01/09/16 17:51 Sputum Culture - Final Complete Pseudomonas Aeruginosa Klebsiella Pneumoniae Esbl Pos Imaging Last Impressions Abdomen X-Ray 01/12/16 1628 Signed Impressions: Service Date/Time: Tuesday, January 12, 2016 17:35 - CONCLUSION: No evidence of obstruction or free air. Reyes Jewell MD Chest X-Ray 01/12/16 0000 Signed Impressions: Service Date/Time: Tuesday, January 12, 2016 17:27 - CONCLUSION: Stable chest as described Reyes Jewell MD Abdomen Ultrasound 12/06/15 0000 Signed Impressions: Service Date/Time: Sunday, December 06, 2015 17:42 - CONCLUSION: 1. The gallbladder is unremarkable with no evidence of cholelithiasis. 2. Simple cyst in the left kidney. 3. Mild pyelocaliectasis in the right kidney. Salazar Thurman MD Upper Extremity Ultrasound 10/13/15 0000 Signed Impressions: Service Date/Time: Tuesday, October 13, 2015 09:51 - CONCLUSION: 1. No evidence of deep venous thrombosis. John Anderson MD Renal Ultrasound 10/07/15 0000 Signed Impressions: Service Date/Time: Wednesday, October 07, 2015 18:29 - CONCLUSION: 1. No acute findings. 3.6 cm left renal cyst. Putnam catheter in bladder. Amaury Ellsworth MD Tunnelled Chest Tube Removal 08/05/15 1100 Signed Impressions: Service Date/Time: Wednesday, August 05, 2015 11:00 - CONCLUSION: Uncomplicated chest tube removal. Blaine Jackson MD Chest Tube Change 07/31/15 0000 Signed Impressions: Service Date/Time: Friday, July 31, 2015 14:34 - CONCLUSION: Uncomplicated reposition of previously placed chest tube as above. Blaine Jackson MD Chest Tube Insertion 07/30/15 0000 Signed Impressions: Service Date/Time: July 14:50 - CONCLUSION: Uncomplicated chest tube placement as above. Blaine Jackson MD Catheter Change 07/27/15 0000 Signed Impressions: Service Date/Time: Monday, July 27, 2015 14:43 - CONCLUSION: Uncomplicated gastrostomy tube exchange as above. Blaine Jackson MD Chest CT 07/11/15 0000 Signed Impressions: Service Date/Time: Saturday, July 11, 2015 09:49 - CONCLUSION: Scattered patchy densities significantly improved from previous study. Tiny anterior right basilar pneumothorax. Right-sided chest tube in good position. Néstor Matamoros MD Head CT 06/18/151902 Signed Impressions: Service Date/Time: June 19:31 - CONCLUSION: Diffuse atrophy unchanged. No acute intracranial findings. Kush Briscoe MD Abdomen/Pelvis CT 06/18/151902 Signed Impressions: Service Date/Time: , June 18, 2015 19:36 - CONCLUSION: 1. Chronic nonspecific urinary bladder wall thickening. Bladder collapsed with Putnam catheter in place. 2. Chronic bilateral mid to lower lung zone groundglass opacity. 3. Nonobstructing left renal calculus. 4. Distended rectum. Kush Briscoe MD Physical Exam General: Patient is bedbound, contracted. Neck: Trach in place with T Bar Chest: Decreased breath sounds Cardiac: Regular Abd: PEG tube with trickle feeds,bowel sounds present, soft nondistended Ext: Contractures of the upper and lower extremities Putnam cath in place (Bernie Hill) Assessment and Plan Plan ASSESSMENT: - Reconsulted for inability to tolerate tube feeding, vomiting.KUB (01/12/16)---- > No evidence of obstruction or free air. Bethanechol added. Tolerating trickle feeds. Will ask IR to convert PEG to G/J tube for feedings. - Acute on chronic respiratory failure on BiPAP and T-piece, Pulmonary following. - Parkinson's disease/dementia. Chronically debilitated. Palliative Care following. PLAN: - Consult IR to convert PEG to G/J tube - NPO after MN - Cont. PPI - Hold on reglan secondary to multiple drug interactions - Bethanechol 10mg per peg q8h - Monitor Stool output - GI will sign off, please reconsult as needed - Pt was seen and examined by myself and Dr. Kimbrough and this note was written on his behalf. (Bernie Hill) Physician Comments Seen and examined with Ms. Liz HERNÁNDEZ, G/J tube recommended. Will sign off, reconsult as needed. Thankyou (Beronica Kimbrough MD) Bernie Hill Jan 14, 2016 15:48 Beronica Kimbrough MD Jan 15, 2016 17:01
--- NOTE | 2016-01-14 18:38 | PD.CONS ---
History of Present Illness Service Neurology Consult Requested By medical Reason for Consult pd Primary Care Physician Unknown History of Present Illness 54 yr man with multiple medial problems including Parkinson's disease, advanced dementia, hyponatremia, anxiety, pneumonia, GERD, cognitive disorder, and multidrug resistant UTI- ESBL02/19/15, who resides in a care home. Pt by report was found by staff in care home to be less alert and having respiratory difficultly and fevers. Pt was brought to ED and placed on ventilator. CT head 06/18/15: diffuse atrophy unchanged. No acute intracranial findings complicated medical course with resp failure, pneumonia, pneumothorax. has contracture boots. from what i gather the patient has been here since june 2015 and medical doctor felt that neurology should see the pt for possible pd med adjustment. he has been in the icu for months and has a trach/peg. he is on antipsychotics. he was followed by palliative care. apparently not ready for hospice. Review of Systems ROS Limitations: Clinical Condition, Past Family Social History Allergies: Coded Allergies: *MDRO Multi-Drug Resistant Organism (Verified Adverse Reaction, Unknown, ) ESBL E. coli (urine) - 02/19/2015 MRSA PCR positive - 03/20/2015 Past Medical History Parkinson's disease, advanced dementia, hyponatremia, anxiety, pneumonia, GERD, cognitive disorder, multidrug resistant UTI- ESBL02/19/15 , MRSA + 03/20/15 Past Surgical History PEG, trach, left hip fx Review of Systems All other ROS: Unable to obtain Past Family Social History Allergies: Coded Allergies: *MDRO Multi-Drug Resistant Organism (Verified Adverse Reaction, Unknown, ESBL, carbapenem resistant Pseudomonas, 01/13/16) ESBL E. coli (urine) - 02/19/2015; ESBL K. pneumoniae (sputum-06/18/15, 08/03/15, 09/20/15,10/12/15, 11/27/15, 12/26/15, 01/09/16), (urine-08/03/15 & 11/27/15), MRSA PCR POSITIVE - 03/20/2015 MDR-Pseudomonas (sputum)- 08/18/15, 09/20/15, 10/2015 (Carbapenem resistant) Active Ordered Medications Current Medications Medications (Trade) Dose Ordered Sig/Jassi Route Start Time Stop Time Status Last Admin (NS Flush) 2 ml UNSCH PRN IVF 06/18/15 21:30 12/05/15 20:49 (NS Flush) 2 ml BID IVF 06/19/15 09:00 01/14/16 09:00 (Tylenol 650 Mg/ 20 ml Liq) 650 mg Q6H PRN TUBE 06/18/15 21:30 12/22/15 09:13 (Tears Naturale Opth Soln) 1 drop TID EACH EYE 06/19/15 09:00 01/14/16 18:08 (Zofran Inj) 4 mg Q6H PRN IV 06/18/15 21:30 11/26/15 11:54 (Sinemet 25-100 Mg) 1 tab Q8HR GT 06/19/15 06:00 01/14/16 14:47 (Neurontin) 300 mg BID G-TUBE 06/19/15 09:00 01/14/16 10:10 (Lactinex) 1 tab TID PO 06/19/15 09:00 01/14/16 18:08 (Paxil) 20 mg DAILY G-TUBE 06/19/15 09:00 01/14/16 10:11 (Pill Splitter) 1 ea UNSCH PRN OTHER 06/19/15 03:30 06/28/15 09:35 (Prevacid Odt) 30 mg DAILY NG 07/08/15 09:00 01/14/16 10:11 (KlonoPIN) 2 mg Q8HR PO 07/09/15 14:00 01/14/16 14:48 (SEROquel) 50 mg BID G-TUBE 07/18/15 09:00 01/14/16 10:11 (Morphine Inj) 2 mg Q3H PRN IV PUSH 07/28/15 00:45 01/09/16 01:53 (Peridex 0.12% Liq) 15 ml BID@08,20 MT 07/29/15 20:00 01/12/16 08:15 (Lovenox Inj) 40 mg Q24H SQ 08/09/15 22:00 Hold 12/05/15 20:49 (Coram 5-325 Mg) 1 tab Q6H PRN PO 08/15/15 15:45 01/04/16 00:21 (Sublimaze Inj) 50 mcg Q2H PRN IV PUSH 08/15/15 15:45 12/28/15 02:31 (ZyPREXA) 5 mg HS GT 08/15/15 21:00 01/12/16 21:42 (Santyl Oint) 1 applic DAILY TOP 08/21/15 09:00 01/14/16 09:00 (Levsin Liq) 0.125 mg Q4H PRN PO 09/06/15 11:00 12/27/15 20:27 (D50w (Vial) Inj) 25 ml UNSCH PRN IV PUSH 10/12/15 17:30 01/06/16 20:14 (Glucagon Inj) 1 mg UNSCH PRN OTHER 10/12/15 17:30 (NovoLIN R SUPPLEMENTAL SCALE) 1 Q6H SQ 10/12/15 18:00 01/12/16 13:25 (Proamatine) 2.5 mg BID G-TUBE 11/15/15 21:00 01/14/16 10:11 (Brethine Inj) 1 mg UNSCH PRN SQ 12/06/15 06:45 (Ativan Inj) 1 mg Q3HR PRN IVP 12/15/15 17:00 01/12/16 22:14 (Deltasone) 2.5 mg DAILY PO 12/23/15 09:00 01/14/16 10:11 (Free Water) 200 ml Q6HR G-TUBE 01/03/16 18:00 Hold 01/12/16 11:12 Potassium Chloride 20 meq 20 meq DAILY GT 01/08/16 17:00 01/14/16 10:14 Pharmacy Profile Note 0 ml @ 0 mls/hr UNSCH OTHER 01/09/16 04:00 Levofloxacin/ Dextrose 100 ml @ 100 mls/hr Q24H IV 01/09/16 12:00 01/14/16 12:30 (Vancomycin Inj/ NS 250 ml Inj) 257.5 ml @ 250 mls/hr Q12H IV 01/12/16 14:00 01/14/16 14:47 Miscellaneous Information SPECIFIC LAB TO BE DRAWN:VANCOMYCIN TROUGH DATE TO... ONCE ONCE XX 01/16/16 01:45 01/16/16 01:46 (D5-1/2 NS + KCl 10 Meq Inj) 1,000 ml @ 80 mls/hr [id number] IV 01/12/16 17:00 01/14/16 08:42 (Urecholine) 10 mg Q8HR PO 01/13/16 22:00 01/14/16 14:48 Exam I&O / VS 01/13/16 01/13/16 01/14/16 14:59 22:59 06:59 Output Total 700 ml 200 ml 300 ml Balance -700 ml -200 ml -300 ml Output Urine Total 700 ml 200 ml 300 ml # Bowel Movements 1 0 1 Vital Signs Date Time Temp Pulse Resp B/P Pulse Ox O2 Delivery O2 Flow Rate FiO2 01/14/16 16:05 97.0 94 16 110/70 96 01/14/16 13:18 96 T-Piece 7.00 28 01/14/16 12:24 97 T-piece 40 01/14/16 12:05 95.5 94 20 106/76 96 01/14/16 10:31 98 T-Piece 7.00 28 01/14/16 08:04 98.1 101 22 111/73 98 01/14/16 04:37 98 40 01/14/16 04:00 96.5 90 24 115/65 97 01/14/16 01:19 98 40 01/14/16 00:19 96.8 88 22 129/67 98 01/13/16 22:33 98 40 01/13/16 20:31 96.9 79 20 106/76 98 01/13/16 20:25 Bi-Pap Exam Comments awake, trach/peg. questionably closes eyes. ou 3mm sluggish, thin body habitus, milt rt ue tremor, moderate generalized atrophy, increased tone in all 4 ext but no cogwheeling, minimal withdrawal of ext, no clonus, planter flexor Review/Management Diagnosis/Plan: (1) Critical illness polyneuropathy Plan: extremely sick individual with pre-existing poor qol and now worse he has significant atrophy and increased tone. this increased tone will probably not respond to higher sinemet doses but we can try hx of pd/dementia complex the antipsychotics that he is on can cause parkinsonism and would suggest they be weaned off if possible will follow peripherally (2) Critical illness myopathy Plan: aggressive nutritional support (3) Severe sepsis Plan: resolved (4) Chronic respiratory failure Problem Qualifiers (1) Chronic respiratory failure: Qualified Code: J96.10 - Chronic respiratory failure, unspecified whether with hypoxia or hypercapnia Iraj Villaseñor MD Jan 14, 2016 18:38
[2016-01-14] MEDS: CHLORHEXIDINE 0.12% (ORAL KIT) 15 ML CUP MT SCH (20:00)
[2016-01-14] MEDS: OLANZapine 5 MG TAB GT SCH (21:57)
--- NOTE | 2016-01-14 23:35 | HHI.PR ---
Subjective Remarks patient seen today around noon. No acute events per nursing. Blood sugars down to the 60s. Restart tube feeds. Keep head of bed up 30-40. N.p.o. at midnight, so should not receive enough to cause aspiration Objective Vital Signs Date Time Temp Pulse Resp B/P Pulse Ox O2 Delivery O2 Flow Rate FiO2 01/14/16 20:00 97.6 84 22 137/69 99 01/14/16 16:05 97.0 94 16 110/70 96 01/14/16 13:18 96 T-Piece 7.00 28 01/14/16 12:24 97 T-piece 40 01/14/16 12:05 95.5 94 20 106/76 96 01/14/16 10:31 98 T-Piece 7.00 28 01/14/16 08:04 98.1 101 22 111/73 98 01/14/16 04:37 98 40 01/14/16 04:00 96.5 90 24 115/65 97 01/14/16 01:19 98 40 01/14/16 00:19 96.8 88 22 129/67 98 I/O 01/13/16 01/13/16 01/13/16 01/14/16 01/14/16 01/14/16 07:00 15:00 23:00 07:00 15:00 23:00 Intake Total 1100 ml Output Total 500 ml 700 ml 200 ml 300 ml 850 ml Balance 600 ml -700 ml -200 ml -300 ml -850 ml IV Total 1000 ml Tube Irrigant 100 ml Output Urine Total 500 ml 700 ml 200 ml 300 ml 850 ml Gastric Drainage Total 0 ml # Bowel Movements 1 1 0 1 1 1 Result Diagram: 01/14/16 0708 01/14/16 0708 Objective Remarks GENERAL: patient lying in bed. Appears comfortable. does not open eyes today. tube feeds restarted. SKIN: Warm and dry. HEAD: Normocephalic. EYES: No scleral icterus. No injection or drainage. NECK: Supple, trachea midline. No JVD or lymphadenopathy. CARDIOVASCULAR: Regular rate and rhythm without murmurs, gallops, or rubs. RESPIRATORY: Breath sounds equal bilaterally. No accessory muscle use. GASTROINTESTINAL: Abdomen soft, non-tender, nondistended. MUSCULOSKELETAL: No cyanosis, or edema. 12/5PEG tube in place. No surrounding erythema. Small amount of crust. . BACK: Nontender without obvious deformity. No CVA tenderness. A/P Assessment and Plan ===== 01/13 -appreciate neurology assistance. Sinemet dose increased -Conversion to GJ tube tomorrow. Appreciate GI assistance. -Hypoglycemia off tube feeds. Continue tube feeds until midnight. Continue D5 fluids. status post suspected aspiration event 01/12. No changes on chest x-ray. She was at that time, however none since. Blood pressure low overnight, however acceptable today. S/P Sepsis shock Recurrent Aspiration.- tachypneic 01/07 evening -likely reaspirated again -repeat CXR shows left lower lobe consolidation, WBC elevated restarted on antibiotics- Vancomycin 01/07, Levaquin IV ./ - send sputum for cultures - Infectious disease following. S/P Zosyn course 01/01. - White count increased, however no fevers. Continue monitor. Chronic respiratory failure- - tolerated T piece Chronic tracheostomy S/P recurrent Right pneumothorax status post pigtail catheter removal Suction secretions and Levsin as needed Duo nebs 4 times a day and when necessary. S/p colistin nebs and Solumedrol. Appreciate pulmonology following. Metabolic Encephalopathy - chronic Parkinson's disease Cognitive disorder/Underlying dementia Depression CT head 06/18/15: - diffuse atrophy unchanged. No acute intracranial findings Continue cognitive effortsand pain meds. Malnutrition/protein calorie - moderate Status post PEG Hemorrhoids Gastroesophageal reflux disease. Concern for hematemesis 12/05. GI evaluated pt. Gastroccult was negative and hemoglobin has been stable. - TF- tolerated - this goal rate- monitor- as has problems with recurrent aspiration. - Current Colace/senna for bowel regimen. - continue PPI.- Prevacid. Bilateral lower extremity Contractures Stage II DU - Wound care team following - Continue physical therapy GI prophylaxis: PPI. Stool softener PRN constipation. DVT PPx: Lovenox CM ff - placement Josiah Junior MD Jan 14, 2016 23:35
[2016-01-15] VITALS (15 sets, daily range): BP systolic 91–128; BP diastolic 62–82; PULSE 69–94; RESP 16–22; TEMP 79.9–97.4; O2SAT 93–100
[2016-01-15] MEDS: VANCOMYCIN INJ 750 MG in SODIUM CHLOR 0.9% 250 ML INJ 250 ML IV SCH ×2 (01:49→15:34)
[2016-01-15] MEDS: INSULIN NovoLIN REGULAR SUPPLEMENTAL SCALE SQ SCH ×5 (06:00→23:19)
[2016-01-15] MEDS: clonazePAM 1 MG TAB PO SCH ×3 (06:12→22:49)
[2016-01-15] MEDS: BETHANECHOL CHL 10 MG TAB PO SCH ×3 (06:12→22:50)
[2016-01-15 07:57] LABS: AUTOMATED NEUTROPHIL # 7.6 TH/MM3 (1.8-7.7); BASOPHIL # 0.1 TH/MM3 (0-0.2); BASOPHIL % 0.6 % (0.0-2.0); EOSINOPHIL # 0.3 TH/MM3 (0-0.4); EOSINOPHIL % 3.1 % (0.0-4.0); HEMATOCRIT 29.7 % (39.0-51.0); HEMO FLAGS DIFF FINAL; LYMPH % 13.9 % (9.0-44.0); LYMPHOCYTE # 1.4 TH/MM3 (1.0-4.8); MEAN CELL VOLUME 84.3 FL (80.0-100.0); MEAN CORPUSCULAR HEMOGLOBIN 28.1 PG (27.0-34.0); MEAN CORPUSCULAR HGB CONC 33.3 % (32.0-36.0); NEUT % 73.4 % (16.0-70.0); PLATELET COUNT 255 TH/MM3 (150-450); RED BLOOD COUNT 3.53 MIL/MM3 (4.50-5.90); RED CELL DISTRIBUTION WIDTH 14.9 % (11.6-17.2); WHITE BLOOD COUNT 10.3 TH/MM3 (4.0-11.0)
[2016-01-15] MEDS: CHLORHEXIDINE 0.12% (ORAL KIT) 15 ML CUP MT SCH ×2 (08:00→20:00)
[2016-01-15] MEDS: predniSONE 5 MG TAB PO SCH (08:20)
[2016-01-15] MEDS: POTASSIUM CL 40 MEQ/30 ML LIQ UDC GT SCH (08:20)
[2016-01-15] MEDS: MIDODRINE 5 MG TAB G-TUBE SCH ×2 (08:20→22:49)
[2016-01-15] MEDS: LANSOPRAZOLE SOLUTAB 30 MG TAB NG SCH (08:20)
[2016-01-15] MEDS: LACTOBACILLUS ACIDOPHILUS TAB PO SCH ×3 (08:20→17:32)
[2016-01-15] MEDS: GABAPENTIN 300 MG CAP G-TUBE SCH ×2 (08:20→22:50)
[2016-01-15] MEDS: CARBIDOPA/LEVODOPA 25 MG/100 MG TAB GT SCH ×4 (08:21→22:50)
[2016-01-15] MEDS: QUEtiapine FUMARATE 25 MG TAB G-TUBE SCH (08:21)
[2016-01-15] MEDS: PARoxetine HCL 20 MG TAB G-TUBE SCH (08:21)
[2016-01-15] MEDS: SODIUM CHLORIDE 0.9% FLUSH 5 ML FLUSH IVF SCH ×2 (08:25→21:00)
[2016-01-15] MEDS: ARTIFICIAL TEARS OPTH SOLN 15 ML BTL EACH EYE SCH ×3 (08:26→17:27)
[2016-01-15 08:29] LABS: BICARBONATE 30.6 MEQ/L (21.0-32.0); POTASSIUM 3.3 MEQ/L (3.5-5.1)
[2016-01-15] MEDS: D5-1/2 NS + KCL 10 MEQ INJ 1,000 ML IV SCH ×2 (09:42→22:49)
--- NOTE | 2016-01-15 09:43 | HHI.PR ---
Subjective Remarks patient seen this afternoon around 4 PM, after interventional radiology procedure. Patient had GJ conversion from PEG tube. Patient appears comfortable. Nonverbal as before. Objective Vital Signs Date Time Temp Pulse Resp B/P Pulse Ox O2 Delivery O2 Flow Rate FiO2 01/15/16 08:24 96.3 69 21 113/78 96 01/15/16 08:03 98 T-Piece 6.00 28 01/15/16 04:10 100 40 01/15/16 04:00 79.9 94 22 117/71 98 01/15/16 01:10 98 40 01/15/16 00:00 97.4 86 22 107/69 96 01/14/16 22:10 97 40 01/14/16 21:10 99 T-Piece 6.00 28 01/14/16 20:00 97.6 84 22 137/69 99 01/14/16 16:05 97.0 94 16 110/70 96 01/14/16 13:18 96 T-Piece 7.00 28 01/14/16 12:24 97 T-piece 40 01/14/16 12:05 95.5 94 20 106/76 96 01/14/16 10:31 98 T-Piece 7.00 28 I/O 01/14/16 01/14/16 01/14/16 01/15/16 01/15/16 01/15/16 07:00 15:00 23:00 07:00 15:00 23:00 Output Total 300 ml 850 ml 1600 ml Balance -300 ml -850 ml -1600 ml Output Urine Total 300 ml 850 ml 1600 ml # Bowel Movements 1 1 1 3 Result Diagram: 01/15/16 0737 01/15/16 0737 Objective Remarks GENERAL: patient lying in bed ROPU. Appears comfortable. opens eyes to verbal stimulation. SKIN: Warm and dry. HEAD: Normocephalic. EYES: No scleral icterus. No injection or drainage. NECK: Supple, trachea midline. No JVD or lymphadenopathy. CARDIOVASCULAR: Regular rate and rhythm without murmurs, gallops, or rubs. RESPIRATORY: Breath sounds equal bilaterally. No accessory muscle use. GASTROINTESTINAL: Abdomen soft, non-tender, nondistended. MUSCULOSKELETAL: No cyanosis, or edema. postoperative PEG tube dressed with dressing clean dry and intact. BACK: Nontender without obvious deformity. No CVA tenderness. A/P Assessment and Plan =====01/15/16 s/p transition to GJ. port today. Appreciate GI assistance. Start J-tube feeds. ALL MEDS VIA G-PORT. Hypokalemia. Replaced. Check magnesium. Monitor neurologic status on increased dose of Parkinson's medication. Continue D5 fluids while off tube feeding. S/P Sepsis shock Recurrent Aspiration pneumonitis.- tachypneic 01/07 evening -likely reaspirated again -repeat CXR shows left lower lobe consolidation, WBC elevated restarted on antibiotics- Vancomycin 01/07, Levaquin IV ./ - send sputum for cultures - Infectious disease following. S/P Zosyn course 01/01. - Leukocytosis resolved. however no fevers. Continue monitor. Chronic respiratory failure- - tolerated T piece Chronic tracheostomy S/P recurrent Right pneumothorax status post pigtail catheter removal Suction secretions and Levsin as needed Duo nebs 4 times a day and when necessary. S/p colistin nebs and Solumedrol. Appreciate pulmonology following. Metabolic Encephalopathy - chronic Parkinson's disease Cognitive disorder/Underlying dementia Depression CT head 06/18/15: - diffuse atrophy unchanged. No acute intracranial findings Continue cognitive effortsand pain meds. 01/13. Consulted neurology as patient was not on maximal treatment for Parkinson 's. Parkinson's medication increase. Have decreased antipsychotic, plan to discontinue s. Expect a slight abnormalities with improvement in Parkinson's. Malnutrition/protein calorie - moderate Status post PEG Hemorrhoids Gastroesophageal reflux disease. Concern for hematemesis 12/05. GI evaluated pt. Gastroccult was negative and hemoglobin has been stable. - 01/14. Switch to GJ tube due to aspiration. - Current Colace/senna for bowel regimen. - continue PPI.- Prevacid. Bilateral lower extremity Contractures Stage II DU - Wound care team following - Continue physical therapy GI prophylaxis: PPI. Stool softener PRN constipation. DVT PPx: Lovenox CM ff - placement Josiah Junior MD Jan 15, 2016 09:43
[2016-01-15] MEDS ORDERED: POTASSIUM CHLORIDE 25 MEQ EFFERVESCENT TAB PO ONE (10:00)
[2016-01-15] MEDS: LEVOFLOXACIN 500 MG PREMIX INJ 100 ML IV SCH (11:15)
[2016-01-15] MEDS: COLLAGENASE OINT 30 GM TUBE TOP SCH (11:15)
[2016-01-15] MEDS ORDERED: MIDAZOLAM HCL 2 MG/2 ML VIAL ONE (12:32)
--- NOTE | 2016-01-15 13:31 | PD.RAD ---
Post Procedure Progress Note Pre Procedure Diagnosis: (1) Malnutrition Post Procedure Diagnosis: (1) Malnutrition Procedure Date: Jan 15, 2016 Supervising Radiologist: Scott Goode Proceduralist/Assist: Eric Garber RT(R), RT Mariluz(R)(CV) Anesthesia: Local, Analgesia, Conscious Sedation Plan of Activity Patient to Unit: ROPU Patient Condition: Good See PACS Report for procedural detail/treatment Feeding Tube Gastro/Jejunostomy (Transgastric J) Reposition, Exchange, Conversion (G to Transgastric J) Serbian: 22 Scott Goode MD Jan 15, 2016 13:31
[2016-01-15] MEDS ORDERED: IOHEXOL 350 MG/ML 50 ML BTL (for RAD DIAG) G-TUBE ONE (13:36)
[2016-01-15] MEDS: FREE WATER G-TUBE SCH (23:19)
[2016-01-16] VITALS (10 sets, daily range): BP systolic 90–139; BP diastolic 65–93; PULSE 64–83; RESP 18–21; TEMP 95.2–98; O2SAT 96–99
[2016-01-16] MEDS ORDERED: PHARMACY ORDERED LAB XX ONE (01:45)
[2016-01-16] MEDS: VANCOMYCIN INJ 750 MG in SODIUM CHLOR 0.9% 250 ML INJ 250 ML IV SCH ×2 (02:00→13:52)
[2016-01-16] MEDS: BETHANECHOL CHL 10 MG TAB PO SCH ×3 (05:46→22:46)
[2016-01-16] MEDS: clonazePAM 1 MG TAB PO SCH ×3 (05:47→22:47)
[2016-01-16] MEDS: INSULIN NovoLIN REGULAR SUPPLEMENTAL SCALE SQ SCH ×4 (05:47→22:57)
[2016-01-16] MEDS: FREE WATER G-TUBE SCH ×4 (05:47→22:49)
[2016-01-16 07:45] LABS: AUTOMATED NEUTROPHIL # 9.2 TH/MM3 (1.8-7.7); BASOPHIL # 0.1 TH/MM3 (0-0.2); BASOPHIL % 0.6 % (0.0-2.0); EOSINOPHIL # 0.3 TH/MM3 (0-0.4); EOSINOPHIL % 2.5 % (0.0-4.0); HEMATOCRIT 30.9 % (39.0-51.0); HEMO FLAGS DIFF FINAL; LYMPH % 7.7 % (9.0-44.0); LYMPHOCYTE # 0.9 TH/MM3 (1.0-4.8); MEAN CELL VOLUME 84.9 FL (80.0-100.0); MEAN CORPUSCULAR HEMOGLOBIN 27.8 PG (27.0-34.0); MEAN CORPUSCULAR HGB CONC 32.7 % (32.0-36.0); NEUT % 82.2 % (16.0-70.0); PLATELET COUNT 241 TH/MM3 (150-450); RED BLOOD COUNT 3.64 MIL/MM3 (4.50-5.90); RED CELL DISTRIBUTION WIDTH 14.7 % (11.6-17.2); WHITE BLOOD COUNT 11.1 TH/MM3 (4.0-11.0)
[2016-01-16] MEDS: CHLORHEXIDINE 0.12% (ORAL KIT) 15 ML CUP MT SCH ×2 (08:00→22:50)
[2016-01-16 08:01] LABS: BICARBONATE 28.1 MEQ/L (21.0-32.0); MAGNESIUM 1.7 MG/DL (1.5-2.5); POTASSIUM 3.7 MEQ/L (3.5-5.1)
[2016-01-16] MEDS: SODIUM CHLORIDE 0.9% FLUSH 5 ML FLUSH IVF SCH ×2 (09:00→22:49)
[2016-01-16] MEDS: GABAPENTIN 300 MG CAP G-TUBE SCH ×2 (09:26→22:48)
[2016-01-16] MEDS: predniSONE 5 MG TAB PO SCH (09:26)
[2016-01-16] MEDS: PARoxetine HCL 20 MG TAB G-TUBE SCH (09:26)
[2016-01-16] MEDS: LACTOBACILLUS ACIDOPHILUS TAB PO SCH ×3 (09:26→18:00)
[2016-01-16] MEDS: MIDODRINE 5 MG TAB G-TUBE SCH ×2 (09:26→22:48)
[2016-01-16] MEDS: QUEtiapine FUMARATE 25 MG TAB G-TUBE SCH ×2 (09:27→22:48)
[2016-01-16] MEDS: CARBIDOPA/LEVODOPA 25 MG/100 MG TAB GT SCH ×4 (09:27→22:46)
[2016-01-16] MEDS: LANSOPRAZOLE SOLUTAB 30 MG TAB NG SCH (09:27)
[2016-01-16] MEDS: ARTIFICIAL TEARS OPTH SOLN 15 ML BTL EACH EYE SCH ×3 (09:27→18:00)
[2016-01-16] MEDS: POTASSIUM CL 40 MEQ/30 ML LIQ UDC GT SCH (09:27)
[2016-01-16] MEDS: COLLAGENASE OINT 30 GM TUBE TOP SCH (09:39)
--- NOTE | 2016-01-16 11:08 | HHI.PR ---
Subjective Remarks The pt was resting comfortably. Discussed with nursing. No acute concerns. Objective Vitals Vital Signs Date Time Temp Pulse Resp B/P Pulse Ox O2 Delivery O2 Flow Rate FiO2 01/16/16 09:46 98 T-Piece 6.00 35 01/16/16 09:11 99 T-piece 5.00 35 01/16/16 08:24 96.4 79 20 108/73 97 01/16/16 04:30 99 40 01/16/16 04:00 98.0 64 20 90/65 98 01/16/16 01:12 98 BiPAP 40 01/16/16 01:12 98 40 01/16/16 01:00 97.5 78 18 110/71 98 01/15/16 21:08 100 Bi-Pap 01/15/16 20:22 99 40 01/15/16 20:00 97.3 78 20 112/82 93 01/15/16 16:00 96.9 74 20 100/73 100 01/15/16 15:25 74 18 98 01/15/16 14:30 72 16 91/62 100 01/15/16 14:00 72 16 93/62 99 01/15/16 13:45 72 16 112/69 100 01/15/16 13:30 96.8 79 18 128/75 98 01/15/16 12:00 95.2 78 20 112/77 99 I/O 01/15/16 01/15/16 01/15/16 01/16/16 01/16/16 01/16/16 07:00 15:00 23:00 07:00 15:00 23:00 Intake Total 906 ml Output Total 1600 ml 750 ml 1200 ml Balance -1600 ml -750 ml -294 ml IV Total 760 ml Tube Feeding 146 ml Output Urine Total 1600 ml 750 ml 1200 ml # Bowel Movements 3 2 2 Result Diagram: 01/16/16 0725 01/16/16 0725 Imaging Last Impressions Abdomen X-Ray 01/12/16 1628 Signed Impressions: Service Date/Time: Tuesday, January 12, 2016 17:35 - CONCLUSION: No evidence of obstruction or free air. Reyes Jewell MD Chest X-Ray 01/12/16 0000 Signed Impressions: Service Date/Time: Tuesday, January 12, 2016 17:27 - CONCLUSION: Stable chest as described Reyes Jewell MD Abdomen Ultrasound 12/06/15 0000 Signed Impressions: Service Date/Time: Sunday, December 06, 2015 17:42 - CONCLUSION: 1. The gallbladder is unremarkable with no evidence of cholelithiasis. 2. Simple cyst in the left kidney. 3. Mild pyelocaliectasis in the right kidney. Salazar Thurman MD Upper Extremity Ultrasound 10/13/15 0000 Signed Impressions: Service Date/Time: Tuesday, October 13, 2015 09:51 - CONCLUSION: 1. No evidence of deep venous thrombosis. John Anderson MD Renal Ultrasound 10/07/15 0000 Signed Impressions: Service Date/Time: Wednesday, October 07, 2015 18:29 - CONCLUSION: 1. No acute findings. 3.6 cm left renal cyst. Putnam catheter in bladder. Amaury Ellsworth MD Tunnelled Chest Tube Removal 08/05/15 1100 Signed Impressions: Service Date/Time: Wednesday, August 05, 2015 11:00 - CONCLUSION: Uncomplicated chest tube removal. Blaine Jackson MD Chest Tube Change 07/31/15 0000 Signed Impressions: Service Date/Time: Friday, July 31, 2015 14:34 - CONCLUSION: Uncomplicated reposition of previously placed chest tube as above. Blaine Jackson MD Chest Tube Insertion 07/30/15 0000 Signed Impressions: Service Date/Time: July 14:50 - CONCLUSION: Uncomplicated chest tube placement as above. Blaine Jackson MD Catheter Change 07/27/15 0000 Signed Impressions: Service Date/Time: Monday, July 27, 2015 14:43 - CONCLUSION: Uncomplicated gastrostomy tube exchange as above. Blaine Jackson MD Chest CT 07/11/15 0000 Signed Impressions: Service Date/Time: Saturday, July 11, 2015 09:49 - CONCLUSION: Scattered patchy densities significantly improved from previous study. Tiny anterior right basilar pneumothorax. Right-sided chest tube in good position. Néstor Matamoros MD Head CT 06/18/151902 Signed Impressions: Service Date/Time: June 19:31 - CONCLUSION: Diffuse atrophy unchanged. No acute intracranial findings. Kush Briscoe MD Abdomen/Pelvis CT 06/18/151902 Signed Impressions: Service Date/Time: June 19:36 - CONCLUSION: 1. Chronic nonspecific urinary bladder wall thickening. Bladder collapsed with Putnam catheter in place. 2. Chronic bilateral mid to lower lung zone groundglass opacity. 3. Nonobstructing left renal calculus. 4. Distended rectum. Kush Briscoe MD Objective Remarks GENERAL: Well-nourished, well-developed patient SKIN: Warm and dry. HEAD: Normocephalic. EYES: No scleral icterus. No injection or drainage. NECK: Trach in place. CARDIOVASCULAR: Regular rate and rhythm without murmurs, gallops, or rubs. RESPIRATORY: Decreased secretions. Moderate air entry. Scattered rhonchi. GASTROINTESTINAL: Abdomen soft, non-tender, nondistended. MUSCULOSKELETAL: No edema. Contractures and deformities of fingers. Coccyx/ sacral decubitus ulcer. NEURO: Unresponsive to voice, not following commands. Procedures 07/26- PEG replacement 07/29- right pigtail catheter placement for new pneumothorax Medications and IVs Current Medications Medications (Trade) Dose Ordered Sig/Jassi Route Start Time Stop Time Status Last Admin (NS Flush) 2 ml UNSCH PRN IVF 06/18/15 21:30 12/05/15 20:49 (NS Flush) 2 ml BID IVF 06/19/15 09:00 01/14/16 09:00 (Tylenol 650 Mg/ 20 ml Liq) 650 mg Q6H PRN TUBE 06/18/15 21:30 12/22/15 09:13 (Tears Naturale Opth Soln) 1 drop TID EACH EYE 06/19/15 09:00 01/16/16 09:27 (Zofran Inj) 4 mg Q6H PRN IV 06/18/15 21:30 11/26/15 11:54 (Neurontin) 300 mg BID G-TUBE 06/19/15 09:00 01/16/16 09:26 (Lactinex) 1 tab TID PO 06/19/15 09:00 01/16/16 09:26 (Paxil) 20 mg DAILY G-TUBE 06/19/15 09:00 01/16/16 09:26 (Pill Splitter) 1 ea UNSCH PRN OTHER 06/19/15 03:30 06/28/15 09:35 (Prevacid Odt) 30 mg DAILY NG 07/08/15 09:00 01/16/16 09:27 (KlonoPIN) 2 mg Q8HR PO 07/09/15 14:00 01/16/16 05:47 (Morphine Inj) 2 mg Q3H PRN IV PUSH 07/28/15 00:45 01/09/16 01:53 (Peridex 0.12% Liq) 15 ml BID@08,20 MT 07/29/15 20:00 01/16/16 08:00 (Lovenox Inj) 40 mg Q24H SQ 08/09/15 22:00 Hold 12/05/15 20:49 ([place] 5-325 Mg) 1 tab Q6H PRN PO 08/15/15 15:45 01/04/16 00:21 (Sublimaze Inj) 50 mcg Q2H PRN IV PUSH 08/15/15 15:45 01/15/16 13:10 (Santyl Oint) 1 applic DAILY TOP 08/21/15 09:00 01/16/16 09:39 (Levsin Liq) 0.125 mg Q4H PRN PO 09/06/15 11:00 12/27/15 20:27 (D50w (Vial) Inj) 25 ml UNSCH PRN IV PUSH 10/12/15 17:30 01/06/16 20:14 (Glucagon Inj) 1 mg UNSCH PRN OTHER 10/12/15 17:30 (NovoLIN R SUPPLEMENTAL SCALE) 1 Q6H SQ 10/12/15 18:00 01/12/16 13:25 (Proamatine) 2.5 mg BID G-TUBE 11/15/15 21:00 01/16/16 09:26 (Brethine Inj) 1 mg UNSCH PRN SQ 12/06/15 06:45 (Ativan Inj) 1 mg Q3HR PRN IVP 12/15/15 17:00 01/12/16 22:14 (Deltasone) 2.5 mg DAILY PO 12/23/15 09:00 01/16/16 09:26 (Free Water) 200 ml Q6HR G-TUBE 01/03/16 18:00 01/16/16 05:47 Potassium Chloride 20 meq 20 meq DAILY GT 01/08/16 17:00 01/16/16 09:27 Pharmacy Profile Note 0 ml @ 0 mls/hr UNSCH OTHER 01/09/16 04:00 Levofloxacin/ Dextrose 100 ml @ 100 mls/hr Q24H IV 01/09/16 12:00 01/15/16 11:15 (Vancomycin Inj/ NS 250 ml Inj) 257.5 ml @ 250 mls/hr Q12H IV 01/12/16 14:00 01/16/16 02:00 (Urecholine) 10 mg Q8HR PO 01/13/16 22:00 01/16/16 05:46 (Sinemet 25-100 Mg) 1.5 tab QID GT 01/14/16 21:00 01/16/16 09:27 (SEROquel) 25 mg BID G-TUBE 01/16/16 09:00 01/16/16 09:27 (ZyPREXA) 2.5 mg HS GT 01/16/16 21:00 Date of Insertion: Dec 16, 2015 A/P Problem List: (1) Sepsis due to urinary tract infection ICD Code: A41.9 Status: Resolved (2) Acute respiratory failure ICD Code: J96.00 Status: Resolved (3) Chronic respiratory failure ICD Code: J96.10 Status: Chronic (4) Parkinson disease ICD Code: G20 Status: Chronic (5) UTI (urinary tract infection) ICD Code: N39.0 Status: Acute (6) Encephalopathy ICD Code: G93.40 Status: Resolved Assessment and Plan 01/15: Discussed with nursing. Pt is non-responsive. Appears comfortable. No changes. S/P Sepsis shock Recurrent aspiration pneumonitis. Repeat CXR shows left lower lobe consolidation , WBC elevated. - restarted on antibiotics- Vancomycin 01/07, Levaquin IV 01/08. - send sputum for cultures - Infectious disease following. Chronic respiratory failure Chronic tracheostomy. Tolerated T piece. S/P recurrent right pneumothorax status post pigtail catheter removal. - Suction secretions and Levsin as needed - Duo nebs 4 times a day and when necessary. S/p colistin nebs and Solumedrol. - Appreciate pulmonology following. Metabolic Encephalopathy Parkinson's disease underlying. Appreciate neuro consult. CT head 06/18/15: - diffuse atrophy unchanged. No acute intracranial findings. - Continue cognitive effortsand pain meds. - Parkinson's medication increased. Have decreased antipsychotic, plan to discontinue. Malnutrition/protein calorie - moderate Status post PEG. Concern for hematemesis 12/05. GI evaluated pt. Gastroccult was negative and hemoglobin has been stable. - 01/14. Switch to GJ tube due to aspiration. - Current Colace/senna for bowel regimen. - continue PPI.- Prevacid. Bilateral lower extremity Contractures Stage II DU. - Wound care team following. - Continue physical therapy. GI prophylaxis: PPI. Stool softener PRN constipation. DVT PPx: Lovenox Discharge Planning Awaiting clinical improvement. Problem Qualifiers (1) Chronic respiratory failure: Qualified Code: J96.10 - Chronic respiratory failure, unspecified whether with hypoxia or hypercapnia Salazar Santa DO Jan 16, 2016 11:08
[2016-01-16] MEDS: LEVOFLOXACIN 500 MG PREMIX INJ 100 ML IV SCH (12:04)
[2016-01-16] MEDS: OLANZapine 5 MG TAB GT SCH (22:47)
[2016-01-17] VITALS (10 sets, daily range): BP systolic 100–137; BP diastolic 75–94; PULSE 80–102; RESP 20–32; TEMP 96.5–98.4; O2SAT 96–100
[2016-01-17] MEDS: VANCOMYCIN INJ 750 MG in SODIUM CHLOR 0.9% 250 ML INJ 250 ML IV SCH ×2 (02:59→14:28)
[2016-01-17] MEDS: BETHANECHOL CHL 10 MG TAB PO SCH ×3 (05:52→22:51)
[2016-01-17] MEDS: FREE WATER G-TUBE SCH ×4 (05:52→22:52)
[2016-01-17] MEDS: INSULIN NovoLIN REGULAR SUPPLEMENTAL SCALE SQ SCH ×4 (05:52→22:52)
[2016-01-17] MEDS: clonazePAM 1 MG TAB PO SCH ×3 (05:52→22:51)
[2016-01-17] MEDS: CHLORHEXIDINE 0.12% (ORAL KIT) 15 ML CUP MT SCH ×2 (08:00→22:52)
[2016-01-17] MEDS: SODIUM CHLORIDE 0.9% FLUSH 5 ML FLUSH IVF SCH ×2 (09:03→22:52)
[2016-01-17] MEDS: LACTOBACILLUS ACIDOPHILUS TAB PO SCH ×3 (09:05→18:07)
[2016-01-17] MEDS: POTASSIUM CL 40 MEQ/30 ML LIQ UDC GT SCH (09:05)
[2016-01-17] MEDS: COLLAGENASE OINT 30 GM TUBE TOP SCH (09:06)
[2016-01-17] MEDS: QUEtiapine FUMARATE 25 MG TAB G-TUBE SCH (09:06)
[2016-01-17] MEDS: GABAPENTIN 300 MG CAP G-TUBE SCH ×2 (09:06→22:50)
[2016-01-17] MEDS: MIDODRINE 5 MG TAB G-TUBE SCH ×2 (09:07→22:50)
[2016-01-17] MEDS: LANSOPRAZOLE SOLUTAB 30 MG TAB NG SCH (09:07)
[2016-01-17] MEDS: PARoxetine HCL 20 MG TAB G-TUBE SCH (09:07)
[2016-01-17] MEDS: CARBIDOPA/LEVODOPA 25 MG/100 MG TAB GT SCH ×4 (09:09→22:49)
[2016-01-17] MEDS: predniSONE 5 MG TAB PO SCH (09:09)
[2016-01-17] MEDS: ARTIFICIAL TEARS OPTH SOLN 15 ML BTL EACH EYE SCH ×3 (09:11→18:08)
[2016-01-17] MEDS: LEVOFLOXACIN 500 MG PREMIX INJ 100 ML IV SCH (12:32)
--- NOTE | 2016-01-17 15:19 | HHI.PR ---
Subjective Remarks The patient seems to be nodding and shaking his head appropriately to some questions. Otherwise, he was staring distantly. He appeared comfortable. Objective Vitals Vital Signs Date Time Temp Pulse Resp B/P Pulse Ox O2 Delivery O2 Flow Rate FiO2 01/17/16 12:33 96.7 89 20 102/81 96 01/17/16 10:56 98 T-piece 5.00 35 01/17/16 08:42 97.6 92 20 118/81 98 01/17/16 04:24 99 40 01/17/16 04:00 98.4 90 21 100/75 98 01/17/16 01:08 100 40 01/17/16 00:54 97.8 102 20 115/83 100 01/16/16 20:16 98 40 01/16/16 20:00 97.2 82 21 139/92 96 01/16/16 16:56 96.9 83 20 109/85 97 I/O 01/16/16 01/16/16 01/16/16 01/17/16 01/17/16 01/17/16 07:00 15:00 23:00 07:00 15:00 23:00 Intake Total 906 ml 200 ml Output Total 1200 ml 1300 ml 650 ml 550 ml 1100 ml Balance -294 ml -1100 ml -650 ml -550 ml -1100 ml IV Total 760 ml Tube Feeding 146 ml Other 200 ml Output Urine Total 1200 ml 1300 ml 650 ml 550 ml 1100 ml # Bowel Movements 2 1 1 1 Result Diagram: 01/16/16 0725 01/16/16 0725 Imaging Last Impressions Abdomen X-Ray 01/12/16 1628 Signed Impressions: Service Date/Time: Tuesday, January 12, 2016 17:35 - CONCLUSION: No evidence of obstruction or free air. Reyes Jewell MD Chest X-Ray 01/12/16 0000 Signed Impressions: Service Date/Time: Tuesday, January 12, 2016 17:27 - CONCLUSION: Stable chest as described Reyes Jewell MD Abdomen Ultrasound 12/06/15 0000 Signed Impressions: Service Date/Time: Sunday, December 06, 2015 17:42 - CONCLUSION: 1. The gallbladder is unremarkable with no evidence of cholelithiasis. 2. Simple cyst in the left kidney. 3. Mild pyelocaliectasis in the right kidney. Salazar Thurman MD Upper Extremity Ultrasound 10/13/15 0000 Signed Impressions: Service Date/Time: Tuesday, October 13, 2015 09:51 - CONCLUSION: 1. No evidence of deep venous thrombosis. John Anderson MD Renal Ultrasound 10/07/15 0000 Signed Impressions: Service Date/Time: Wednesday, October 07, 2015 18:29 - CONCLUSION: 1. No acute findings. 3.6 cm left renal cyst. Putnam catheter in bladder. Amaury Ellsworth MD Tunnelled Chest Tube Removal 08/05/15 1100 Signed Impressions: Service Date/Time: Wednesday, August 05, 2015 11:00 - CONCLUSION: Uncomplicated chest tube removal. Blaine Jackson MD Chest Tube Change 07/31/15 0000 Signed Impressions: Service Date/Time: Friday, July 31, 2015 14:34 - CONCLUSION: Uncomplicated reposition of previously placed chest tube as above. Blaine Jackson MD Chest Tube Insertion 07/30/15 0000 Signed Impressions: Service Date/Time: July 14:50 - CONCLUSION: Uncomplicated chest tube placement as above. Blaine Jackson MD Catheter Change 07/27/15 0000 Signed Impressions: Service Date/Time: Monday, July 27, 2015 14:43 - CONCLUSION: Uncomplicated gastrostomy tube exchange as above. Blaine Jackson MD Chest CT 07/11/15 0000 Signed Impressions: Service Date/Time: Saturday, July 11, 2015 09:49 - CONCLUSION: Scattered patchy densities significantly improved from previous study. Tiny anterior right basilar pneumothorax. Right-sided chest tube in good position. Néstor Matamoros MD Head CT 06/18/151902 Signed Impressions: Service Date/Time: June 19:31 - CONCLUSION: Diffuse atrophy unchanged. No acute intracranial findings. Kush Briscoe MD Abdomen/Pelvis CT 06/18/151902 Signed Impressions: Service Date/Time: June 19:36 - CONCLUSION: 1. Chronic nonspecific urinary bladder wall thickening. Bladder collapsed with Putnam catheter in place. 2. Chronic bilateral mid to lower lung zone groundglass opacity. 3. Nonobstructing left renal calculus. 4. Distended rectum. Kush Briscoe MD Objective Remarks GENERAL: Well-nourished, well-developed patient SKIN: Warm and dry. HEAD: Normocephalic. EYES: No scleral icterus. No injection or drainage. NECK: Trach in place. CARDIOVASCULAR: Regular rate and rhythm without murmurs, gallops, or rubs. RESPIRATORY: Decreased secretions. Moderate air entry. Scattered rhonchi. GASTROINTESTINAL: Abdomen soft, non-tender, nondistended. MUSCULOSKELETAL: No edema. Contractures and deformities of fingers. Coccyx/ sacral decubitus ulcer. NEURO: Seems to nod and shake his head in response to some questions. Procedures 07/26- PEG replacement 07/29- right pigtail catheter placement for new pneumothorax Medications and IVs Current Medications Medications (Trade) Dose Ordered Sig/Jassi Route Start Time Stop Time Status Last Admin (NS Flush) 2 ml UNSCH PRN IVF 06/18/15 21:30 12/05/15 20:49 (NS Flush) 2 ml BID IVF 06/19/15 09:00 01/17/16 09:03 (Tylenol 650 Mg/ 20 ml Liq) 650 mg Q6H PRN TUBE 06/18/15 21:30 12/22/15 09:13 (Tears Naturale Opth Soln) 1 drop TID EACH EYE 06/19/15 09:00 01/17/16 12:32 (Zofran Inj) 4 mg Q6H PRN IV 06/18/15 21:30 11/26/15 11:54 (Neurontin) 300 mg BID G-TUBE 06/19/15 09:00 01/17/16 09:06 (Lactinex) 1 tab TID PO 06/19/15 09:00 01/17/16 12:32 (Paxil) 20 mg DAILY G-TUBE 06/19/15 09:00 01/17/16 09:07 (Pill Splitter) 1 ea UNSCH PRN OTHER 06/19/15 03:30 06/28/15 09:35 (Prevacid Odt) 30 mg DAILY NG 07/08/15 09:00 01/17/16 09:07 (KlonoPIN) 2 mg Q8HR PO 07/09/15 14:00 01/17/16 14:28 (Morphine Inj) 2 mg Q3H PRN IV PUSH 07/28/15 00:45 01/09/16 01:53 (Peridex 0.12% Liq) 15 ml BID@08,20 MT 07/29/15 20:00 01/16/16 22:50 (Lovenox Inj) 40 mg Q24H SQ 08/09/15 22:00 Hold 12/05/15 20:49 ([place] 5-325 Mg) 1 tab Q6H PRN PO 08/15/15 15:45 01/04/16 00:21 (Sublimaze Inj) 50 mcg Q2H PRN IV PUSH 08/15/15 15:45 01/15/16 13:10 (Santyl Oint) 1 applic DAILY TOP 08/21/15 09:00 01/17/16 09:06 (Levsin Liq) 0.125 mg Q4H PRN PO 09/06/15 11:00 12/27/15 20:27 (D50w (Vial) Inj) 25 ml UNSCH PRN IV PUSH 10/12/15 17:30 01/06/16 20:14 (Glucagon Inj) 1 mg UNSCH PRN OTHER 10/12/15 17:30 (NovoLIN R SUPPLEMENTAL SCALE) 1 Q6H SQ 10/12/15 18:00 01/12/16 13:25 (Proamatine) 2.5 mg BID G-TUBE 11/15/15 21:00 01/17/16 09:07 (Brethine Inj) 1 mg UNSCH PRN SQ 12/06/15 06:45 (Ativan Inj) 1 mg Q3HR PRN IVP 12/15/15 17:00 01/12/16 22:14 (Deltasone) 2.5 mg DAILY PO 12/23/15 09:00 01/17/16 09:09 (Free Water) 200 ml Q6HR G-TUBE 01/03/16 18:00 01/17/16 12:00 Potassium Chloride 20 meq 20 meq DAILY GT 01/08/16 17:00 01/17/16 09:05 Pharmacy Profile Note 0 ml @ 0 mls/hr UNSCH OTHER 01/09/16 04:00 Levofloxacin/ Dextrose 100 ml @ 100 mls/hr Q24H IV 01/09/16 12:00 01/17/16 12:32 (Vancomycin Inj/ NS 250 ml Inj) 257.5 ml @ 250 mls/hr Q12H IV 01/12/16 14:00 01/17/16 14:28 (Urecholine) 10 mg Q8HR PO 01/13/16 22:00 01/17/16 14:28 (Sinemet 25-100 Mg) 1.5 tab QID GT 01/14/16 21:00 01/17/16 12:32 (SEROquel) 25 mg BID G-TUBE 01/16/16 09:00 01/17/16 09:06 (ZyPREXA) 2.5 mg HS GT 01/16/16 21:00 01/16/16 22:47 Date of Insertion: Dec 16, 2015 A/P Problem List: (1) Sepsis due to urinary tract infection ICD Code: A41.9 Status: Resolved (2) Acute respiratory failure ICD Code: J96.00 Status: Resolved (3) Chronic respiratory failure ICD Code: J96.10 Status: Chronic (4) Parkinson disease ICD Code: G20 Status: Chronic (5) UTI (urinary tract infection) ICD Code: N39.0 Status: Acute (6) Encephalopathy ICD Code: G93.40 Status: Resolved Assessment and Plan 01/16: Patient appears to nod and shake his head in response to some questions as well as attempts to mumble words. No acute events reported. S/P Septic shock Recurrent aspiration pneumonitis. Repeat CXR shows left lower lobe consolidation , WBC elevated. - restarted on antibiotics- Vancomycin 01/07, Levaquin IV 01/08. - send sputum for cultures - Infectious disease following. Chronic respiratory failure Chronic tracheostomy. Tolerated T piece. S/P recurrent right pneumothorax status post pigtail catheter removal. Currently on 35% oxygen. - Suction secretions and Levsin as needed - Duo nebs 4 times a day and when necessary. S/p colistin nebs and Solumedrol. - Appreciate pulmonology following. Metabolic Encephalopathy Parkinson's disease underlying. Appreciate neuro consult. CT head 06/18/15: - diffuse atrophy unchanged. No acute intracranial findings. - Continue cognitive efforts and pain meds. - Parkinson's medication increased. Have decreased antipsychotics, plan to discontinue. - start to wean clonazepam 01/16. Malnutrition/protein calorie - moderate Status post PEG. Concern for hematemesis 12/05. GI evaluated pt. Gastroccult was negative and hemoglobin has been stable. - 01/14. Switch to GJ tube due to aspiration. - Current Colace/senna for bowel regimen. - continue PPI.- Prevacid. Bilateral lower extremity Contractures Stage II DU. - Wound care team following. - Continue physical therapy. GI prophylaxis: PPI. Stool softener PRN constipation. DVT PPx: Lovenox Discharge Planning Awaiting clinical improvement. Problem Qualifiers (1) Chronic respiratory failure: Qualified Code: J96.10 - Chronic respiratory failure, unspecified whether with hypoxia or hypercapnia Salazar Santa DO Jan 17, 2016 15:19
[2016-01-17] MEDS: OLANZapine 5 MG TAB GT SCH (22:51)
[2016-01-18] VITALS (9 sets, daily range): BP systolic 95–121; BP diastolic 72–78; PULSE 81–88; RESP 20–26; TEMP 97.1–97.6; O2SAT 96–99
[2016-01-18] MEDS: VANCOMYCIN INJ 750 MG in SODIUM CHLOR 0.9% 250 ML INJ 250 ML IV SCH ×2 (02:28→13:24)
[2016-01-18] MEDS: INSULIN NovoLIN REGULAR SUPPLEMENTAL SCALE SQ SCH ×3 (06:00→18:00)
[2016-01-18] MEDS: clonazePAM 1 MG TAB PO SCH ×3 (06:26→22:25)
[2016-01-18] MEDS: BETHANECHOL CHL 10 MG TAB PO SCH ×3 (06:26→22:00)
[2016-01-18] MEDS: FREE WATER G-TUBE SCH ×4 (06:29→22:26)
[2016-01-18] MEDS: LANSOPRAZOLE SOLUTAB 30 MG TAB NG SCH (09:00)
[2016-01-18] MEDS: CHLORHEXIDINE 0.12% (ORAL KIT) 15 ML CUP MT SCH ×2 (09:47→22:25)
[2016-01-18] MEDS: ARTIFICIAL TEARS OPTH SOLN 15 ML BTL EACH EYE SCH ×3 (09:47→18:00)
[2016-01-18] MEDS: POTASSIUM CL 40 MEQ/30 ML LIQ UDC GT SCH (09:47)
[2016-01-18] MEDS: MIDODRINE 5 MG TAB G-TUBE SCH ×2 (09:48→22:24)
[2016-01-18] MEDS: predniSONE 5 MG TAB PO SCH (09:48)
[2016-01-18] MEDS: QUEtiapine FUMARATE 25 MG TAB G-TUBE SCH (09:48)
[2016-01-18] MEDS: GABAPENTIN 300 MG CAP G-TUBE SCH ×2 (09:48→22:25)
[2016-01-18] MEDS: CARBIDOPA/LEVODOPA 25 MG/100 MG TAB GT SCH ×4 (09:48→22:25)
[2016-01-18] MEDS: PARoxetine HCL 20 MG TAB G-TUBE SCH (09:48)
[2016-01-18] MEDS: SODIUM CHLORIDE 0.9% FLUSH 5 ML FLUSH IVF SCH ×2 (09:49→21:00)
[2016-01-18] MEDS: LACTOBACILLUS ACIDOPHILUS TAB PO SCH ×3 (09:49→18:50)
[2016-01-18] MEDS: COLLAGENASE OINT 30 GM TUBE TOP SCH (09:50)
[2016-01-18] MEDS: LEVOFLOXACIN 500 MG PREMIX INJ 100 ML IV SCH (12:04)
--- NOTE | 2016-01-18 13:07 | HHI.PR ---
Subjective Remarks Awake and remains lethargic. Breathing better. Responds to some questions . and 0n a T bar FIO2 30 % On tube feeds at 35 CC. Objective Vital Signs Date Time Temp Pulse Resp B/P Pulse Ox O2 Delivery O2 Flow Rate FiO2 01/18/16 10:05 96 T-piece 6.00 35 01/18/16 08:00 97.4 84 24 121/78 99 01/18/16 04:35 98 40 01/18/16 04:00 97.1 81 26 113/78 99 01/18/16 01:00 98 40 01/17/16 20:29 97 40 01/17/16 20:00 97.9 87 32 132/91 99 01/17/16 16:17 96.5 80 20 137/94 98 01/17/16 16:15 98 T-Piece 40 I/O 01/17/16 01/17/16 01/17/16 01/18/16 01/18/16 01/18/16 06:59 14:59 22:59 06:59 14:59 22:59 Intake Total 1434 ml Output Total 550 ml 1100 ml 700 ml Balance -550 ml -1100 ml 1434 ml -700 ml IV Total 348 ml Tube Feeding 486 ml Other 600 ml Output Urine Total 550 ml 1100 ml 700 ml # Bowel Movements 1 1 Result Diagram: 01/16/1672401/16/16724 Objective Remarks This is a thin white male who is , awake with a trach tube in place. HEENT: Pupils are equal and reactive to light. CHEST:Decreased breath sounds, occ wheeze . CARDIOVASCULAR: S1 and S2 is normal.No murmur. ABDOMEN: Soft, nondistended. BS +. He has a PEG tube in place. EXTREMITIES: Contractures.muscle wasting. NEURO: Awake and has weak extremities. Skin is dry. Assessment and Plan Assessment and Plan IMPRESSION 1. Chronic Respiratory failure. 2. Sepsis, Aspiration. Improved 3. Left basal Pneumonia 4. Tracheobronchitis 5. Parkinson's disease 6. Dementia. 7. Severe Deconditioning. Plan : 1. Continue on Bipap 06/20, FIo2 30 % at HS 2. Nebs Bid , duoneb. 3. Cont tube feeds Jevity at 40 CC 4. T Bar 40 % daytime. 5. Levsin .25 mg tid prn for Secretions 6. Cont Trach toilet and lavage. 7. PT for activity/Postural drainage qid. 8. C XR in am 1 Darren Kiser MD Jan 18, 2016 13:07
--- NOTE | 2016-01-18 15:08 | HHI.PR ---
Subjective Remarks The patient was awake and minimally interactive. He appeared comfortable. Objective Vitals Vital Signs Date Time Temp Pulse Resp B/P Pulse Ox O2 Delivery O2 Flow Rate FiO2 01/18/16 12:00 97.6 88 22 95/72 99 01/18/16 10:05 96 T-piece 6.00 35 01/18/16 08:00 97.4 84 24 121/78 99 01/18/16 04:35 98 40 01/18/16 04:00 97.1 81 26 113/78 99 01/18/16 01:00 98 40 01/17/16 20:29 97 40 01/17/16 20:00 97.9 87 32 132/91 99 01/17/16 16:17 96.5 80 20 137/94 98 01/17/16 16:15 98 T-Piece 40 I/O 01/17/16 01/17/16 01/17/16 01/18/16 01/18/16 01/18/16 07:00 15:00 23:00 07:00 15:00 23:00 Intake Total 1434 ml Output Total 550 ml 1100 ml 700 ml 400 ml Balance -550 ml -1100 ml 1434 ml -700 ml -400 ml IV Total 348 ml Tube Feeding 486 ml Other 600 ml Output Urine Total 550 ml 1100 ml 700 ml 400 ml # Bowel Movements 1 1 Result Diagram: 01/16/16 0725 01/16/16 0725 Imaging Last Impressions Abdomen X-Ray 01/12/16 1628 Signed Impressions: Service Date/Time: Tuesday, January 12, 2016 17:35 - CONCLUSION: No evidence of obstruction or free air. Reyes Jewell MD Chest X-Ray 01/12/16 0000 Signed Impressions: Service Date/Time: Tuesday, January 12, 2016 17:27 - CONCLUSION: Stable chest as described Reyes Jewell MD Abdomen Ultrasound 12/06/15 0000 Signed Impressions: Service Date/Time: Sunday, December 06, 2015 17:42 - CONCLUSION: 1. The gallbladder is unremarkable with no evidence of cholelithiasis. 2. Simple cyst in the left kidney. 3. Mild pyelocaliectasis in the right kidney. Salazar Thurman MD Upper Extremity Ultrasound 10/13/15 0000 Signed Impressions: Service Date/Time: Tuesday, October 13, 2015 09:51 - CONCLUSION: 1. No evidence of deep venous thrombosis. John Anderson MD Renal Ultrasound 10/07/15 0000 Signed Impressions: Service Date/Time: Wednesday, October 07, 2015 18:29 - CONCLUSION: 1. No acute findings. 3.6 cm left renal cyst. Putnam catheter in bladder. Amaury Ellsworth MD Tunnelled Chest Tube Removal 08/05/15 1100 Signed Impressions: Service Date/Time: Wednesday, August 05, 2015 11:00 - CONCLUSION: Uncomplicated chest tube removal. Blaine Jackson MD Chest Tube Change 07/31/15 0000 Signed Impressions: Service Date/Time: Friday, July 31, 2015 14:34 - CONCLUSION: Uncomplicated reposition of previously placed chest tube as above. Blaine Jackson MD Chest Tube Insertion 07/30/15 0000 Signed Impressions: Service Date/Time: July 14:50 - CONCLUSION: Uncomplicated chest tube placement as above. Blaine Jackson MD Catheter Change 07/27/15 0000 Signed Impressions: Service Date/Time: Monday, July 27, 2015 14:43 - CONCLUSION: Uncomplicated gastrostomy tube exchange as above. Blaine Jackson MD Chest CT 07/11/15 0000 Signed Impressions: Service Date/Time: Saturday, July 11, 2015 09:49 - CONCLUSION: Scattered patchy densities significantly improved from previous study. Tiny anterior right basilar pneumothorax. Right-sided chest tube in good position. Néstor Matamoros MD Head CT 06/18/151902 Signed Impressions: Service Date/Time: June 19:31 - CONCLUSION: Diffuse atrophy unchanged. No acute intracranial findings. Kush Briscoe MD Abdomen/Pelvis CT 06/18/151902 Signed Impressions: Service Date/Time: June 19:36 - CONCLUSION: 1. Chronic nonspecific urinary bladder wall thickening. Bladder collapsed with Putnam catheter in place. 2. Chronic bilateral mid to lower lung zone groundglass opacity. 3. Nonobstructing left renal calculus. 4. Distended rectum. Kush Briscoe MD Objective Remarks GENERAL: Well-nourished, well-developed patient SKIN: Warm and dry. HEAD: Normocephalic. EYES: No scleral icterus. No injection or drainage. NECK: Trach in place. CARDIOVASCULAR: Regular rate and rhythm without murmurs, gallops, or rubs. RESPIRATORY: Decreased secretions. Moderate air entry. Scattered rhonchi. GASTROINTESTINAL: Abdomen soft, non-tender, nondistended. MUSCULOSKELETAL: No edema. Contractures and deformities of fingers. Coccyx/ sacral decubitus ulcer. NEURO: Seems to nod and shake his head in response to some questions. Procedures 07/26- PEG replacement 07/29- right pigtail catheter placement for new pneumothorax Medications and IVs Current Medications Medications (Trade) Dose Ordered Sig/Jassi Route Start Time Stop Time Status Last Admin (NS Flush) 2 ml UNSCH PRN IVF 06/18/15 21:30 12/05/15 20:49 (NS Flush) 2 ml BID IVF 06/19/15 09:00 01/18/16 09:49 (Tylenol 650 Mg/ 20 ml Liq) 650 mg Q6H PRN TUBE 06/18/15 21:30 12/22/15 09:13 (Tears Naturale Opth Soln) 1 drop TID EACH EYE 06/19/15 09:00 01/18/16 12:05 (Zofran Inj) 4 mg Q6H PRN IV 06/18/15 21:30 11/26/15 11:54 (Neurontin) 300 mg BID G-TUBE 06/19/15 09:00 01/18/16 09:48 (Lactinex) 1 tab TID PO 06/19/15 09:00 01/18/16 12:05 (Paxil) 20 mg DAILY G-TUBE 06/19/15 09:00 01/18/16 09:48 (Pill Splitter) 1 ea UNSCH PRN OTHER 06/19/15 03:30 06/28/15 09:35 (Prevacid Odt) 30 mg DAILY NG 07/08/15 09:00 01/17/16 09:07 (Morphine Inj) 2 mg Q3H PRN IV PUSH 07/28/15 00:45 01/09/16 01:53 (Peridex 0.12% Liq) 15 ml BID@08,20 MT 07/29/15 20:00 01/18/16 09:47 (Lovenox Inj) 40 mg Q24H SQ 08/09/15 22:00 Hold 12/05/15 20:49 ([place] 5-325 Mg) 1 tab Q6H PRN PO 08/15/15 15:45 01/04/16 00:21 (Sublimaze Inj) 50 mcg Q2H PRN IV PUSH 08/15/15 15:45 01/15/16 13:10 (Santyl Oint) 1 applic DAILY TOP 08/21/15 09:00 01/18/16 09:50 (Levsin Liq) 0.125 mg Q4H PRN PO 09/06/15 11:00 12/27/15 20:27 (D50w (Vial) Inj) 25 ml UNSCH PRN IV PUSH 10/12/15 17:30 01/06/16 20:14 (Glucagon Inj) 1 mg UNSCH PRN OTHER 10/12/15 17:30 (NovoLIN R SUPPLEMENTAL SCALE) 1 Q6H SQ 10/12/15 18:00 01/12/16 13:25 (Proamatine) 2.5 mg BID G-TUBE 11/15/15 21:00 01/18/16 09:48 (Brethine Inj) 1 mg UNSCH PRN SQ 12/06/15 06:45 (Ativan Inj) 1 mg Q3HR PRN IVP 12/15/15 17:00 01/12/16 22:14 (Deltasone) 2.5 mg DAILY PO 12/23/15 09:00 01/18/16 09:48 (Free Water) 200 ml Q6HR G-TUBE 01/03/16 18:00 01/18/16 12:00 Potassium Chloride 20 meq 20 meq DAILY GT 01/08/16 17:00 01/18/16 09:47 Pharmacy Profile Note 0 ml @ 0 mls/hr UNSCH OTHER 01/09/16 04:00 Levofloxacin/ Dextrose 100 ml @ 100 mls/hr Q24H IV 01/09/16 12:00 01/18/16 12:04 (Vancomycin Inj/ NS 250 ml Inj) 257.5 ml @ 250 mls/hr Q12H IV 01/12/16 14:00 01/18/16 13:24 (Urecholine) 10 mg Q8HR PO 01/13/16 22:00 01/18/16 13:25 (Sinemet 25-100 Mg) 1.5 tab QID GT 01/14/16 21:00 01/18/16 12:05 (ZyPREXA) 2.5 mg HS GT 01/16/16 21:00 01/17/16 22:51 (KlonoPIN) 1 mg Q8HR PO 01/17/16 22:00 01/18/16 13:25 (SEROquel) 25 mg DAILY G-TUBE 01/18/16 09:00 01/18/16 09:48 Date of Insertion: Dec 16, 2015 A/P Problem List: (1) Sepsis due to urinary tract infection ICD Code: A41.9 Status: Resolved (2) Acute respiratory failure ICD Code: J96.00 Status: Resolved (3) Chronic respiratory failure ICD Code: J96.10 Status: Chronic (4) Parkinson disease ICD Code: G20 Status: Chronic (5) UTI (urinary tract infection) ICD Code: N39.0 Status: Acute (6) Encephalopathy ICD Code: G93.40 Status: Resolved Assessment and Plan 01/17: Patient appears to nod, shake his head and move his hands in response to some questions as well as attempts to mumble words. No acute events reported. S/P Septic shock Recurrent aspiration pneumonitis. Repeat CXR shows left lower lobe consolidation , WBC elevated. - restarted on antibiotics- Vancomycin 01/07, Levaquin IV 01/08. - send sputum for cultures - Infectious disease following. Chronic respiratory failure Chronic tracheostomy. Tolerated T piece. S/P recurrent right pneumothorax status post pigtail catheter removal. Currently on 35% oxygen. Appreciate pulmonology consult. - Suction secretions and Levsin as needed - Duo nebs 4 times a day and when necessary. S/p colistin nebs and Solumedrol. - Follow up with pulmonology. Metabolic Encephalopathy Parkinson's disease underlying. Appreciate neuro consult. CT head 06/18/15: - diffuse atrophy unchanged. No acute intracranial findings. - Continue cognitive efforts and pain meds. - Parkinson's medication increased by neurology. Have decreased antipsychotics , plan to discontinue in 1-2 days. - started to wean clonazepam 01/16. Malnutrition/protein calorie - moderate Status post PEG. Concern for hematemesis 12/05. GI evaluated pt. Gastroccult was negative and hemoglobin has been stable. - 01/14. Switch to GJ tube due to aspiration. - Current Colace/senna for bowel regimen. - continue PPI.- Prevacid. Bilateral lower extremity Contractures Stage II DU. - Wound care team following. - Continue physical therapy. GI prophylaxis: PPI. Stool softener PRN constipation. DVT PPx: Lovenox Discharge Planning Awaiting clinical improvement. Problem Qualifiers (1) Chronic respiratory failure: Qualified Code: J96.10 - Chronic respiratory failure, unspecified whether with hypoxia or hypercapnia Salazar Santa DO Jan 18, 2016 15:08
[2016-01-18] MEDS: OLANZapine 5 MG TAB GT SCH (22:24)
[2016-01-19] VITALS (8 sets, daily range): BP systolic 94–120; BP diastolic 64–76; PULSE 64–88; RESP 18–24; TEMP 95.5–97.8; O2SAT 97–100
[2016-01-19] MEDS: VANCOMYCIN INJ 750 MG in SODIUM CHLOR 0.9% 250 ML INJ 250 ML IV SCH (03:08)
[2016-01-19] MEDS: INSULIN NovoLIN REGULAR SUPPLEMENTAL SCALE SQ SCH ×5 (06:00→22:30)
[2016-01-19] MEDS: FREE WATER G-TUBE SCH ×4 (06:00→22:30)
--- NOTE | 2016-01-19 06:23 | RADRPT ---
EXAM DATE/TIME: 01/19/2016 05:56 [facility] COMPARISON: CHEST SINGLE AP, January 04, 2016, 3:15. CHEST SINGLE AP, January 09, 2016, 2:37. CHEST SINGLE AP , January 12, 2016, 17:27. INDICATIONS : Short of breath MEDICAL HISTORY : Hypertension. Diabetes mellitus type II. Gastroesophageal reflux disease. urosepsis, respiratory failure SURGICAL HISTORY : tracheostomy ENCOUNTER: Subsequent ACUITY: 4 - 6 months PAIN SCORE: Non-responsive. LOCATION: Bilateral chest FINDINGS: There is a tracheostomy tube in place. The heart size is normal. There are questionable nodular densi ties seen in the left lateral midlung and left base. Right lung appears fairly clear. No effusion is seen.CONCLUSION: Questionable nodular densities/patchy small consolidations seen in the left lung. Erlin Barajas MD on January 19, 2016 at 6:19 Board Certified Radiologist. This report was verified electronically.
[2016-01-19] MEDS: clonazePAM 1 MG TAB PO SCH ×3 (06:26→22:29)
[2016-01-19] MEDS: BETHANECHOL CHL 10 MG TAB PO SCH ×3 (06:28→22:30)
[2016-01-19] MEDS: LACTOBACILLUS ACIDOPHILUS TAB PO SCH ×3 (09:52→18:20)
[2016-01-19] MEDS: POTASSIUM CL 40 MEQ/30 ML LIQ UDC GT SCH (09:52)
[2016-01-19] MEDS: PARoxetine HCL 20 MG TAB G-TUBE SCH (09:52)
[2016-01-19] MEDS: CARBIDOPA/LEVODOPA 25 MG/100 MG TAB GT SCH ×4 (09:52→22:30)
[2016-01-19] MEDS: predniSONE 5 MG TAB PO SCH (09:52)
[2016-01-19] MEDS: MIDODRINE 5 MG TAB G-TUBE SCH ×2 (09:52→22:29)
[2016-01-19] MEDS: LANSOPRAZOLE SOLUTAB 30 MG TAB NG SCH (09:52)
[2016-01-19] MEDS: GABAPENTIN 300 MG CAP G-TUBE SCH ×2 (09:52→22:29)
[2016-01-19] MEDS: SODIUM CHLORIDE 0.9% FLUSH 5 ML FLUSH IVF SCH ×2 (09:53→21:00)
[2016-01-19] MEDS: CHLORHEXIDINE 0.12% (ORAL KIT) 15 ML CUP MT SCH ×2 (09:53→20:00)
[2016-01-19] MEDS: QUEtiapine FUMARATE 25 MG TAB G-TUBE SCH (09:53)
[2016-01-19] MEDS: ARTIFICIAL TEARS OPTH SOLN 15 ML BTL EACH EYE SCH ×3 (09:54→18:21)
[2016-01-19] MEDS: COLLAGENASE OINT 30 GM TUBE TOP SCH (09:54)
--- NOTE | 2016-01-19 15:00 | HHI.PR ---
Subjective Remarks The patient was resting in bed comfortably. He closed his eyes on command. Otherwise did not interact. No events reported. Objective Vitals Vital Signs Date Time Temp Pulse Resp B/P Pulse Ox O2 Delivery O2 Flow Rate FiO2 01/19/16 12:00 97.1 81 18 120/76 99 01/19/16 08:47 99 T-piece 6.00 40 01/19/16 08:45 99 T-Piece 40 01/19/16 08:00 97.8 64 18 94/66 97 01/19/16 04:00 95.5 73 24 102/69 98 01/19/16 03:15 99 40 01/19/16 03:11 99 Bi-Pap 40 T-Piece 01/19/16 00:00 96.5 88 24 107/75 100 01/18/16 21:50 99 T-piece 6.00 35 01/18/16 21:50 99 40 01/18/16 20:00 97.6 88 20 108/76 97 01/18/16 16:00 97.1 84 22 112/72 99 I/O 01/18/16 01/18/16 01/18/16 01/19/16 01/19/16 01/19/16 07:00 15:00 23:00 07:00 15:00 23:00 Intake Total 200 ml 200 ml 822 ml 200 ml Output Total 700 ml 400 ml 275 ml 1275 ml 650 ml Balance -700 ml -200 ml -75 ml -453 ml -450 ml Tube Feeding 422 ml Other 200 ml 200 ml 400 ml 200 ml Output Urine Total 700 ml 400 ml 275 ml 1275 ml 650 ml # Bowel Movements 1 1 1 Result Diagram: 01/16/16 0725 01/19/16 0719 Imaging Last Impressions Chest X-Ray 01/19/16 0600 Signed Impressions: Service Date/Time: Tuesday, January 19, 2016 05:56 - CONCLUSION: Questionable nodular densities/patchy small consolidations seen in the left lung. Erlin Barajas MD Abdomen X-Ray 01/12/16 1628 Signed Impressions: Service Date/Time: Tuesday, January 12, 2016 17:35 - CONCLUSION: No evidence of obstruction or free air. Reyes Jewell MD Abdomen Ultrasound 12/06/15 0000 Signed Impressions: Service Date/Time: Sunday, December 06, 2015 17:42 - CONCLUSION: 1. The gallbladder is unremarkable with no evidence of cholelithiasis. 2. Simple cyst in the left kidney. 3. Mild pyelocaliectasis in the right kidney. Salazar Thurman MD Upper Extremity Ultrasound 10/13/15 0000 Signed Impressions: Service Date/Time: Tuesday, October 13, 2015 09:51 - CONCLUSION: 1. No evidence of deep venous thrombosis. John Anderson MD Renal Ultrasound 10/07/15 0000 Signed Impressions: Service Date/Time: Wednesday, October 07, 2015 18:29 - CONCLUSION: 1. No acute findings. 3.6 cm left renal cyst. Putnam catheter in bladder. Amaury Ellsworth MD Tunnelled Chest Tube Removal 08/05/15 1100 Signed Impressions: Service Date/Time: Wednesday, August 05, 2015 11:00 - CONCLUSION: Uncomplicated chest tube removal. Blaine Jackson MD Chest Tube Change 07/31/15 0000 Signed Impressions: Service Date/Time: Friday, July 31, 2015 14:34 - CONCLUSION: Uncomplicated reposition of previously placed chest tube as above. Blaine Jackson MD Chest Tube Insertion 07/30/15 0000 Signed Impressions: Service Date/Time: July 14:50 - CONCLUSION: Uncomplicated chest tube placement as above. Blaine Jackson MD Catheter Change 07/27/15 0000 Signed Impressions: Service Date/Time: Monday, July 27, 2015 14:43 - CONCLUSION: Uncomplicated gastrostomy tube exchange as above. Blaine Jackson MD Chest CT 07/11/15 0000 Signed Impressions: Service Date/Time: Saturday, July 11, 2015 09:49 - CONCLUSION: Scattered patchy densities significantly improved from previous study. Tiny anterior right basilar pneumothorax. Right-sided chest tube in good position. Néstor Matamoros MD Head CT 06/18/151902 Signed Impressions: Service Date/Time: June 19:31 - CONCLUSION: Diffuse atrophy unchanged. No acute intracranial findings. Kush Briscoe MD Abdomen/Pelvis CT 06/18/151902 Signed Impressions: Service Date/Time: June 19:36 - CONCLUSION: 1. Chronic nonspecific urinary bladder wall thickening. Bladder collapsed with Putnam catheter in place. 2. Chronic bilateral mid to lower lung zone groundglass opacity. 3. Nonobstructing left renal calculus. 4. Distended rectum. Kush Briscoe MD Objective Remarks GENERAL: Well-nourished, well-developed patient SKIN: Warm and dry. HEAD: Normocephalic. EYES: No scleral icterus. No injection or drainage. NECK: Trach in place. CARDIOVASCULAR: Regular rate and rhythm without murmurs, gallops, or rubs. RESPIRATORY: Decreased secretions. Moderate air entry. Scattered rhonchi. GASTROINTESTINAL: Abdomen soft, non-tender, nondistended. MUSCULOSKELETAL: No edema. Contractures and deformities of fingers. Coccyx/ sacral decubitus ulcer. NEURO: Seems to nod and shake his head in response to some questions. Procedures 07/26- PEG replacement 07/29- right pigtail catheter placement for new pneumothorax Medications and IVs Current Medications Medications (Trade) Dose Ordered Sig/Jassi Route Start Time Stop Time Status Last Admin (NS Flush) 2 ml UNSCH PRN IVF 06/18/15 21:30 12/05/15 20:49 (NS Flush) 2 ml BID IVF 06/19/15 09:00 01/19/16 09:53 (Tylenol 650 Mg/ 20 ml Liq) 650 mg Q6H PRN TUBE 06/18/15 21:30 12/22/15 09:13 (Tears Naturale Opth Soln) 1 drop TID EACH EYE 06/19/15 09:00 01/19/16 13:21 (Zofran Inj) 4 mg Q6H PRN IV 06/18/15 21:30 11/26/15 11:54 (Neurontin) 300 mg BID G-TUBE 06/19/15 09:00 01/19/16 09:52 (Lactinex) 1 tab TID PO 06/19/15 09:00 01/19/16 13:21 (Paxil) 20 mg DAILY G-TUBE 06/19/15 09:00 01/19/16 09:52 (Pill Splitter) 1 ea UNSCH PRN OTHER 06/19/15 03:30 06/28/15 09:35 (Prevacid Odt) 30 mg DAILY NG 07/08/15 09:00 01/19/16 09:52 (Morphine Inj) 2 mg Q3H PRN IV PUSH 07/28/15 00:45 01/09/16 01:53 (Peridex 0.12% Liq) 15 ml BID@08,20 MT 07/29/15 20:00 01/19/16 09:53 (Lovenox Inj) 40 mg Q24H SQ 08/09/15 22:00 Hold 12/05/15 20:49 ([place] 5-325 Mg) 1 tab Q6H PRN PO 08/15/15 15:45 01/04/16 00:21 (Sublimaze Inj) 50 mcg Q2H PRN IV PUSH 08/15/15 15:45 01/15/16 13:10 (Santyl Oint) 1 applic DAILY TOP 08/21/15 09:00 01/19/16 09:54 (Levsin Liq) 0.125 mg Q4H PRN PO 09/06/15 11:00 12/27/15 20:27 (D50w (Vial) Inj) 25 ml UNSCH PRN IV PUSH 10/12/15 17:30 01/06/16 20:14 (Glucagon Inj) 1 mg UNSCH PRN OTHER 10/12/15 17:30 (NovoLIN R SUPPLEMENTAL SCALE) 1 Q6H SQ 10/12/15 18:00 01/12/16 13:25 (Proamatine) 2.5 mg BID G-TUBE 11/15/15 21:00 01/19/16 09:52 (Brethine Inj) 1 mg UNSCH PRN SQ 12/06/15 06:45 (Ativan Inj) 1 mg Q3HR PRN IVP 12/15/15 17:00 01/12/16 22:14 (Deltasone) 2.5 mg DAILY PO 12/23/15 09:00 01/19/16 09:52 (Free Water) 200 ml Q6HR G-TUBE 01/03/16 18:00 01/19/16 12:00 (KCl 40 Meq/30 ml Liq) 20 meq DAILY GT 01/08/16 17:00 01/19/16 09:52 (Urecholine) 10 mg Q8HR PO 01/13/16 22:00 01/19/16 13:21 (Sinemet 25-100 Mg) 1.5 tab QID GT 01/14/16 21:00 01/19/16 13:20 (ZyPREXA) 2.5 mg HS GT 01/16/16 21:00 01/18/16 22:24 (KlonoPIN) 1 mg Q8HR PO 01/17/16 22:00 01/19/16 13:21 (SEROquel) 25 mg DAILY G-TUBE 01/18/16 09:00 01/19/16 09:53 Date of Insertion: Dec 16, 2015 A/P Problem List: (1) Sepsis due to urinary tract infection ICD Code: A41.9 Status: Resolved (2) Acute respiratory failure ICD Code: J96.00 Status: Resolved (3) Chronic respiratory failure ICD Code: J96.10 Status: Chronic (4) Parkinson disease ICD Code: G20 Status: Chronic (5) UTI (urinary tract infection) ICD Code: N39.0 Status: Acute (6) Encephalopathy ICD Code: G93.40 Status: Resolved Assessment and Plan 01/18: Patient closed his eyes to command. No acute events reported. Chest x- ray showed: Questionable nodular densities/patchy small consolidations seen in the left lung. Discussed with ID, antibiotics discontinued. S/P Septic shock Recurrent aspiration pneumonitis. Sputum growing Klebsiella and Pseudomonas. - Vancomycin and Levaquin d/c 01/18. Monitor. Chronic respiratory failure Chronic tracheostomy. Tolerated T piece. S/P recurrent right pneumothorax status post pigtail catheter removal. Currently on 35% oxygen. Appreciate pulmonology consult. - Suction secretions and Levsin as needed - Duo nebs 4 times a day and when necessary. S/p colistin nebs and Solumedrol. - Follow up with pulmonology. Metabolic Encephalopathy Parkinson's disease underlying. Appreciate neuro consult. CT head 06/18/15: - diffuse atrophy unchanged. No acute intracranial findings. - Continue cognitive efforts and pain meds. - Parkinson's medication increased by neurology. Have decreased antipsychotics , plan to discontinue in 1-2 days. - started to wean clonazepam 01/16. Malnutrition/protein calorie - moderate Status post PEG. Concern for hematemesis 12/05. GI evaluated pt. Gastroccult was negative and hemoglobin has been stable. - 01/14. Switch to GJ tube due to aspiration. - Current Colace/senna for bowel regimen. - continue PPI.- Prevacid. Bilateral lower extremity Contractures Stage II DU. - Wound care team following. - Continue physical therapy. GI prophylaxis: PPI. Stool softener PRN constipation. DVT PPx: Lovenox Discharge Planning Awaiting clinical improvement. Problem Qualifiers (1) Chronic respiratory failure: Qualified Code: J96.10 - Chronic respiratory failure, unspecified whether with hypoxia or hypercapnia Salazar Santa DO Jan 19, 2016 15:00
--- NOTE | 2016-01-19 18:07 | HHI.PR ---
Subjective Remarks Awake and remains lethargic. Breathing shallow. and 0n a T bar FIO2 30 % On tube feeds at 35 CC. Trach site is clean Objective Vital Signs Date Time Temp Pulse Resp B/P Pulse Ox O2 Delivery O2 Flow Rate FiO2 01/19/16 16:00 97.4 72 18 112/69 100 01/19/16 12:00 97.1 81 18 120/76 99 01/19/16 08:47 99 T-piece 6.00 40 01/19/16 08:45 99 T-Piece 40 01/19/16 08:00 97.8 64 18 94/66 97 01/19/16 04:00 95.5 73 24 102/69 98 01/19/16 03:15 99 40 01/19/16 03:11 99 Bi-Pap 40 T-Piece 01/19/16 00:00 96.5 88 24 107/75 100 01/18/16 21:50 99 T-piece 6.00 35 01/18/16 21:50 99 40 01/18/16 20:00 97.6 88 20 108/76 97 I/O 01/18/16 01/18/16 01/18/16 01/19/16 01/19/16 01/19/16 07:00 15:00 23:00 07:00 15:00 23:00 Intake Total 200 ml 200 ml 822 ml 200 ml Output Total 700 ml 400 ml 275 ml 1275 ml 650 ml Balance -700 ml -200 ml -75 ml -453 ml -450 ml Tube Feeding 422 ml Other 200 ml 200 ml 400 ml 200 ml Output Urine Total 700 ml 400 ml 275 ml 1275 ml 650 ml # Bowel Movements 1 1 1 Result Diagram: 01/16/16 0725 01/19/16 0719 Objective Remarks This is a thin white male who is , awake with a trach tube in place.Responds weakly to command. HEENT: Pupils are equal and reactive to light. CHEST:Decreased breath sounds, occ wheeze . CARDIOVASCULAR: S1 and S2 is normal.No murmur. ABDOMEN: Soft, nondistended. BS +. He has a PEG tube in place. EXTREMITIES: Contractures.muscle wasting. NEURO: Awake and has weak extremities. Skin is dry. Assessment and Plan Assessment and Plan IMPRESSION 1. Chronic Respiratory failure. 2. Sepsis, Aspiration. Improved 3. Left basal Pneumonia 4. Tracheobronchitis 5. Parkinson's disease 6. Dementia. 7. Severe Deconditioning. Plan : 1. Continue on Bipap 5/15, FIo2 30 % at HS 2. Nebs Bid , duoneb. 3. Cont tube feeds Jevity at 40 CC 4. T Bar 40 % daytime. 5. Levsin .25 mg tid prn for Secretions 6. Cont Trach toilet and lavage. 7. PT for activity/Postural drainage qid. 1 Darren Kiser MD Jan 19, 2016 18:07
[2016-01-19] MEDS: OLANZapine 5 MG TAB GT SCH (22:29)
[2016-01-20] VITALS (10 sets, daily range): BP systolic 105–141; BP diastolic 65–91; PULSE 68–93; RESP 18–24; TEMP 97–98.8; O2SAT 96–100
[2016-01-20] MEDS: BETHANECHOL CHL 10 MG TAB PO SCH ×3 (05:44→23:19)
[2016-01-20] MEDS: FREE WATER G-TUBE SCH ×4 (05:44→23:20)
[2016-01-20] MEDS: clonazePAM 1 MG TAB PO SCH ×2 (05:44→23:19)
[2016-01-20] MEDS: INSULIN NovoLIN REGULAR SUPPLEMENTAL SCALE SQ SCH ×3 (05:46→17:36)
[2016-01-20] MEDS: CHLORHEXIDINE 0.12% (ORAL KIT) 15 ML CUP MT SCH ×2 (08:00→20:00)
--- NOTE | 2016-01-20 08:40 | HHI.PR ---
Review/Management Diagnosis/Plan: (1) Critical illness polyneuropathy Plan: extremely sick individual with pre-existing poor qol and now worse he has significant atrophy and increased tone. this increased tone will probably not respond to higher sinemet doses but we can try hx of pd/dementia complex the antipsychotics that he is on can cause parkinsonism and would suggest they be weaned off if possible- medical working on this; on zyprexa/seroquel also on clonazepam will follow peripherally (2) Critical illness myopathy Plan: aggressive nutritional support (3) Severe sepsis Plan: resolved (4) Chronic respiratory failure Subjective Subjective Comments No acute events reported Active Medications Current Medications Medications (Trade) Dose Ordered Sig/Jassi Route Start Time Stop Time Status Last Admin (NS Flush) 2 ml UNSCH PRN IVF 06/18/15 21:30 12/05/15 20:49 (NS Flush) 2 ml BID IVF 06/19/15 09:00 01/19/16 21:00 (Tylenol 650 Mg/ 20 ml Liq) 650 mg Q6H PRN TUBE 06/18/15 21:30 12/22/15 09:13 (Tears Naturale Opth Soln) 1 drop TID EACH EYE 06/19/15 09:00 01/19/16 18:21 (Zofran Inj) 4 mg Q6H PRN IV 06/18/15 21:30 11/26/15 11:54 (Neurontin) 300 mg BID G-TUBE 06/19/15 09:00 01/19/16 22:29 (Lactinex) 1 tab TID PO 06/19/15 09:00 01/19/16 18:20 (Paxil) 20 mg DAILY G-TUBE 06/19/15 09:00 01/19/16 09:52 (Pill Splitter) 1 ea UNSCH PRN OTHER 06/19/15 03:30 06/28/15 09:35 (Prevacid Odt) 30 mg DAILY NG 07/08/15 09:00 01/19/16 09:52 (Morphine Inj) 2 mg Q3H PRN IV PUSH 07/28/15 00:45 01/09/16 01:53 (Peridex 0.12% Liq) 15 ml BID@08,20 MT 07/29/15 20:00 01/19/16 09:53 (Lovenox Inj) 40 mg Q24H SQ 08/09/15 22:00 Hold 12/05/15 20:49 ([place] 5-325 Mg) 1 tab Q6H PRN PO 08/15/15 15:45 01/04/16 00:21 (Sublimaze Inj) 50 mcg Q2H PRN IV PUSH 08/15/15 15:45 01/15/16 13:10 (Santyl Oint) 1 applic DAILY TOP 08/21/15 09:00 01/19/16 09:54 (Levsin Liq) 0.125 mg Q4H PRN PO 09/06/15 11:00 12/27/15 20:27 (D50w (Vial) Inj) 25 ml UNSCH PRN IV PUSH 10/12/15 17:30 01/06/16 20:14 (Glucagon Inj) 1 mg UNSCH PRN OTHER 10/12/15 17:30 (NovoLIN R SUPPLEMENTAL SCALE) 1 Q6H SQ 10/12/15 18:00 01/12/16 13:25 (Proamatine) 2.5 mg BID G-TUBE 11/15/15 21:00 01/19/16 22:29 (Brethine Inj) 1 mg UNSCH PRN SQ 12/06/15 06:45 (Ativan Inj) 1 mg Q3HR PRN IVP 12/15/15 17:00 01/12/16 22:14 (Deltasone) 2.5 mg DAILY PO 12/23/15 09:00 01/19/16 09:52 (Free Water) 200 ml Q6HR G-TUBE 01/03/16 18:00 01/20/16 05:44 (KCl 40 Meq/30 ml Liq) 20 meq DAILY GT 01/08/16 17:00 01/19/16 09:52 (Urecholine) 10 mg Q8HR PO 01/13/16 22:00 01/20/16 05:44 (Sinemet 25-100 Mg) 1.5 tab QID GT 01/14/16 21:00 01/19/16 22:30 (ZyPREXA) 2.5 mg HS GT 01/16/16 21:00 01/19/16 22:29 (KlonoPIN) 1 mg Q8HR PO 01/17/16 22:00 01/20/16 05:44 (SEROquel) 25 mg DAILY G-TUBE 01/18/16 09:00 01/19/16 09:53 Allergies Allergies Coded Allergies *MDRO Multi-Drug Resistant Organism (Verified Adverse Reaction, Unknown, ESBL , carbapenem resistant Pseudomonas, 01/13/16) Review of Systems All other ROS: Unable to obtain Exam I&O / VS 01/19/16 01/19/16 01/20/16 14:59 22:59 06:59 Intake Total 200 ml 688 ml 459 ml Output Total 650 ml 300 ml 1000 ml Balance -450 ml 388 ml -541 ml Intake Oral 0 ml 0 ml Tube Feeding 288 ml 259 ml Other 200 ml 400 ml 200 ml Output Urine Total 650 ml 300 ml 1000 ml # Bowel Movements 1 0 2 Vital Signs Date Time Temp Pulse Resp B/P Pulse Ox O2 Delivery O2 Flow Rate FiO2 01/20/16 07:56 97 T-piece 6.00 28 01/20/16 06:00 98.8 90 23 110/70 98 01/20/16 04:30 98 40 01/20/16 02:26 97 Bi-Pap 40 T-Piece 01/20/16 01:13 98 40 01/20/16 00:30 97.1 80 22 105/65 97 01/19/16 21:00 97.7 84 23 104/64 98 01/19/16 16:00 97.4 72 18 112/69 100 01/19/16 12:00 97.1 81 18 120/76 99 01/19/16 08:47 99 T-piece 6.00 40 01/19/16 08:45 99 T-Piece 40 Exam Comments more alert, awake, trach/peg. questionably closes eyes. ou 3mm sluggish, thin body habitus, no tremor, raise ue to gravity, moderate generalized atrophy, increased tone in all 4 ext but no cogwheeling, minimal withdrawal of ext, no clonus, planter flexor Problem Qualifiers (1) Chronic respiratory failure: Qualified Code: J96.10 - Chronic respiratory failure, unspecified whether with hypoxia or hypercapnia Iraj Villaseñor MD Jan 20, 2016 08:39
[2016-01-20] MEDS: POTASSIUM CL 40 MEQ/30 ML LIQ UDC GT SCH (09:56)
[2016-01-20] MEDS: LANSOPRAZOLE SOLUTAB 30 MG TAB NG SCH (09:57)
[2016-01-20] MEDS: LACTOBACILLUS ACIDOPHILUS TAB PO SCH ×3 (09:57→17:18)
[2016-01-20] MEDS: GABAPENTIN 300 MG CAP G-TUBE SCH ×2 (09:57→23:19)
[2016-01-20] MEDS: MIDODRINE 5 MG TAB G-TUBE SCH ×2 (09:57→23:19)
[2016-01-20] MEDS: predniSONE 5 MG TAB PO SCH (09:57)
[2016-01-20] MEDS: CARBIDOPA/LEVODOPA 25 MG/100 MG TAB GT SCH ×4 (09:58→23:19)
[2016-01-20] MEDS: PARoxetine HCL 20 MG TAB G-TUBE SCH (09:58)
[2016-01-20] MEDS: QUEtiapine FUMARATE 25 MG TAB G-TUBE SCH (09:58)
[2016-01-20] MEDS: ARTIFICIAL TEARS OPTH SOLN 15 ML BTL EACH EYE SCH ×3 (09:59→17:19)
[2016-01-20] MEDS: SODIUM CHLORIDE 0.9% FLUSH 5 ML FLUSH IVF SCH ×2 (09:59→23:19)
[2016-01-20] MEDS: COLLAGENASE OINT 30 GM TUBE TOP SCH (10:00)
--- NOTE | 2016-01-20 11:27 | HHI.PR ---
Subjective Remarks The patient was minimally responsive today. Appeared comfortable. Objective Vitals Vital Signs Date Time Temp Pulse Resp B/P Pulse Ox O2 Delivery O2 Flow Rate FiO2 01/20/16 08:00 97.0 68 18 109/74 97 01/20/16 07:56 97 T-piece 6.00 28 01/20/16 06:00 98.8 90 23 110/70 98 01/20/16 04:30 98 40 01/20/16 02:26 97 Bi-Pap 40 T-Piece 01/20/16 01:13 98 40 01/20/16 00:30 97.1 80 22 105/65 97 01/19/16 21:00 97.7 84 23 104/64 98 01/19/16 16:00 97.4 72 18 112/69 100 01/19/16 12:00 97.1 81 18 120/76 99 I/O 01/19/16 01/19/16 01/19/16 01/20/16 01/20/16 01/20/16 06:59 14:59 22:59 06:59 14:59 22:59 Intake Total 822 ml 200 ml 688 ml 459 ml Output Total 1275 ml 650 ml 300 ml 1000 ml Balance -453 ml -450 ml 388 ml -541 ml Intake Oral 0 ml 0 ml Tube Feeding 422 ml 288 ml 259 ml Other 400 ml 200 ml 400 ml 200 ml Output Urine Total 1275 ml 650 ml 300 ml 1000 ml # Bowel Movements 1 1 0 2 Result Diagram: 01/16/16 0725 01/19/16 0719 Imaging Last Impressions Chest X-Ray 01/19/16 0600 Signed Impressions: Service Date/Time: Tuesday, January 19, 2016 05:56 - CONCLUSION: Questionable nodular densities/patchy small consolidations seen in the left lung. Erlin Barajas MD Abdomen X-Ray 01/12/16 1628 Signed Impressions: Service Date/Time: Tuesday, January 12, 2016 17:35 - CONCLUSION: No evidence of obstruction or free air. Reyes Jewell MD Abdomen Ultrasound 12/06/15 0000 Signed Impressions: Service Date/Time: Sunday, December 06, 2015 17:42 - CONCLUSION: 1. The gallbladder is unremarkable with no evidence of cholelithiasis. 2. Simple cyst in the left kidney. 3. Mild pyelocaliectasis in the right kidney. Salazar Thurman MD Upper Extremity Ultrasound 10/13/15 0000 Signed Impressions: Service Date/Time: Tuesday, October 13, 2015 09:51 - CONCLUSION: 1. No evidence of deep venous thrombosis. John Anderson MD Renal Ultrasound 10/07/15 0000 Signed Impressions: Service Date/Time: Wednesday, October 07, 2015 18:29 - CONCLUSION: 1. No acute findings. 3.6 cm left renal cyst. Putnam catheter in bladder. Amaury Ellsworth MD Tunnelled Chest Tube Removal 08/05/15 1100 Signed Impressions: Service Date/Time: Wednesday, August 05, 2015 11:00 - CONCLUSION: Uncomplicated chest tube removal. Blaine Jackson MD Chest Tube Change 07/31/15 0000 Signed Impressions: Service Date/Time: Friday, July 31, 2015 14:34 - CONCLUSION: Uncomplicated reposition of previously placed chest tube as above. Blaine Jackson MD Chest Tube Insertion 07/30/15 0000 Signed Impressions: Service Date/Time: July 14:50 - CONCLUSION: Uncomplicated chest tube placement as above. Blaine Jackson MD Catheter Change 07/27/15 0000 Signed Impressions: Service Date/Time: Monday, July 27, 2015 14:43 - CONCLUSION: Uncomplicated gastrostomy tube exchange as above. Blaine Jackson MD Chest CT 07/11/15 Signed Impressions: Service Date/Time: Saturday, July 11, 2015 09:49 - CONCLUSION: Scattered patchy densities significantly improved from previous study. Tiny anterior right basilar pneumothorax. Right-sided chest tube in good position. Néstor Matamoros MD Head CT 06/18/151902 Signed Impressions: Service Date/Time: June 19:31 - CONCLUSION: Diffuse atrophy unchanged. No acute intracranial findings. Kush Briscoe MD Abdomen/Pelvis CT 06/18/151902 Signed Impressions: Service Date/Time: June 19:36 - CONCLUSION: 1. Chronic nonspecific urinary bladder wall thickening. Bladder collapsed with Putnam catheter in place. 2. Chronic bilateral mid to lower lung zone groundglass opacity. 3. Nonobstructing left renal calculus. 4. Distended rectum. Kush Briscoe MD Objective Remarks GENERAL: Well-nourished, well-developed patient SKIN: Warm and dry. HEAD: Normocephalic. EYES: No scleral icterus. No injection or drainage. NECK: Trach in place. CARDIOVASCULAR: Regular rate and rhythm without murmurs, gallops, or rubs. RESPIRATORY: Decreased secretions. Moderate air entry. Scattered rhonchi. GASTROINTESTINAL: Abdomen soft, non-tender, nondistended. MUSCULOSKELETAL: No edema. Contractures and deformities of fingers. Coccyx/ sacral decubitus ulcer. NEURO: Seems to respond to some commands. Procedures 07/26- PEG replacement 07/29- right pigtail catheter placement for new pneumothorax Medications and IVs Current Medications Medications (Trade) Dose Ordered Sig/Jassi Route Start Time Stop Time Status Last Admin (NS Flush) 2 ml UNSCH PRN IVF 06/18/15 21:30 12/05/15 20:49 (NS Flush) 2 ml BID IVF 06/19/15 09:00 01/20/16 09:59 (Tylenol 650 Mg/ 20 ml Liq) 650 mg Q6H PRN TUBE 06/18/15 21:30 12/22/15 09:13 (Tears Naturale Opth Soln) 1 drop TID EACH EYE 06/19/15 09:00 01/20/16 09:59 (Zofran Inj) 4 mg Q6H PRN IV 06/18/15 21:30 11/26/15 11:54 (Neurontin) 300 mg BID G-TUBE 06/19/15 09:00 01/20/16 09:57 (Lactinex) 1 tab TID PO 06/19/15 09:00 01/20/16 09:57 (Paxil) 20 mg DAILY G-TUBE 06/19/15 09:00 01/20/16 09:58 (Pill Splitter) 1 ea UNSCH PRN OTHER 06/19/15 03:30 06/28/15 09:35 (Prevacid Odt) 30 mg DAILY NG 07/08/15 09:00 01/20/16 09:57 (Morphine Inj) 2 mg Q3H PRN IV PUSH 07/28/15 00:45 01/09/16 01:53 (Peridex 0.12% Liq) 15 ml BID@08,20 MT 07/29/15 20:00 01/20/16 08:00 (Lovenox Inj) 40 mg Q24H SQ 08/09/15 22:00 Hold 12/05/15 20:49 ([place] 5-325 Mg) 1 tab Q6H PRN PO 08/15/15 15:45 01/04/16 00:21 (Sublimaze Inj) 50 mcg Q2H PRN IV PUSH 08/15/15 15:45 01/15/16 13:10 (Santyl Oint) 1 applic DAILY TOP 08/21/15 09:00 01/20/16 10:00 (Levsin Liq) 0.125 mg Q4H PRN PO 09/06/15 11:00 12/27/15 20:27 (D50w (Vial) Inj) 25 ml UNSCH PRN IV PUSH 10/12/15 17:30 01/06/16 20:14 (Glucagon Inj) 1 mg UNSCH PRN OTHER 10/12/15 17:30 (NovoLIN R SUPPLEMENTAL SCALE) 1 Q6H SQ 10/12/15 18:00 01/12/16 13:25 (Proamatine) 2.5 mg BID G-TUBE 11/15/15 21:00 01/20/16 09:57 (Brethine Inj) 1 mg UNSCH PRN SQ 12/06/15 06:45 (Ativan Inj) 1 mg Q3HR PRN IVP 12/15/15 17:00 01/12/16 22:14 (Deltasone) 2.5 mg DAILY PO 12/23/15 09:00 01/20/16 09:57 (Free Water) 200 ml Q6HR G-TUBE 01/03/16 18:00 01/20/16 05:44 (KCl 40 Meq/30 ml Liq) 20 meq DAILY GT 01/08/16 17:00 01/20/16 09:56 (Urecholine) 10 mg Q8HR PO 01/13/16 22:00 01/20/16 05:44 (Sinemet 25-100 Mg) 1.5 tab QID GT 01/14/16 21:00 01/20/16 09:58 (KlonoPIN) 1 mg BID PO 01/20/16 21:00 Date of Insertion: Dec 16, 2015 A/P Problem List: (1) Sepsis due to urinary tract infection ICD Code: A41.9 Status: Resolved (2) Acute respiratory failure ICD Code: J96.00 Status: Resolved (3) Chronic respiratory failure ICD Code: J96.10 Status: Chronic (4) Parkinson disease ICD Code: G20 Status: Chronic (5) UTI (urinary tract infection) ICD Code: N39.0 Status: Acute (6) Encephalopathy ICD Code: G93.40 Status: Resolved Assessment and Plan 01/19: Nursing reports G/J tube is having difficulties. Will ask IR to evaluate it. Tube feeds are being continued at this time. S/P Septic shock Recurrent aspiration pneumonitis. Sputum growing Klebsiella and Pseudomonas. - Vancomycin and Levaquin d/c 01/18. Monitor. Chronic respiratory failure Chronic tracheostomy. Tolerated T piece. S/P recurrent right pneumothorax status post pigtail catheter removal. Currently on 35% oxygen. Appreciate pulmonology consult. - Suction secretions and Levsin as needed - Duo nebs 4 times a day and when necessary. S/p colistin nebs and Solumedrol. - Follow up with pulmonology. Metabolic Encephalopathy Parkinson's disease underlying. Appreciate neuro consult. CT head 06/18/15: - diffuse atrophy unchanged. No acute intracranial findings. - Continue cognitive efforts and pain meds. - Parkinson's medication increased by neurology. Have decreased antipsychotics , plan to discontinue in 1-2 days. - started to wean clonazepam 01/16. Malnutrition/protein calorie - moderate Status post PEG. Concern for hematemesis 12/05. GI evaluated pt. Gastroccult was negative and hemoglobin has been stable. - 01/14. Switch to GJ tube due to aspiration. Consulting IR to evaluate GJ tube 01/19. - Current Colace/senna for bowel regimen. - continue PPI.- Prevacid. Bilateral lower extremity Contractures Stage II DU. - Wound care team following. - Continue physical therapy. GI prophylaxis: PPI. Stool softener PRN constipation. DVT PPx: Lovenox Discharge Planning Awaiting clinical improvement. Problem Qualifiers (1) Chronic respiratory failure: Qualified Code: J96.10 - Chronic respiratory failure, unspecified whether with hypoxia or hypercapnia Salazar Santa DO Jan 20, 2016 11:27
--- NOTE | 2016-01-20 18:37 | HHI.PR ---
Subjective Remarks Awake and remains lethargic. Breathing shallow. and 0n a T bar FIO2 35 % On tube feeds at 35 CC. Objective Vital Signs Date Time Temp Pulse Resp B/P Pulse Ox O2 Delivery O2 Flow Rate FiO2 01/20/16 16:00 97.7 93 18 118/67 97 01/20/16 13:31 99 T-Piece 40 01/20/16 12:00 97.7 86 18 113/80 96 01/20/16 08:00 97.0 68 18 109/74 97 01/20/16 07:56 97 T-piece 6.00 28 01/20/16 06:00 98.8 90 23 110/70 98 01/20/16 04:30 98 40 01/20/16 02:26 97 Bi-Pap 40 T-Piece 01/20/16 01:13 98 40 01/20/16 00:30 97.1 80 22 105/65 97 01/19/16 21:00 97.7 84 23 104/64 98 I/O 01/19/16 01/19/16 01/19/16 01/20/16 01/20/16 01/20/16 07:00 15:00 23:00 07:00 15:00 23:00 Intake Total 822 ml 200 ml 688 ml 459 ml Output Total 1275 ml 650 ml 300 ml 1000 ml 850 ml Balance -453 ml -450 ml 388 ml -541 ml -850 ml Intake Oral 0 ml 0 ml Tube Feeding 422 ml 288 ml 259 ml Other 400 ml 200 ml 400 ml 200 ml Output Urine Total 1275 ml 650 ml 300 ml 1000 ml 850 ml # Bowel Movements 1 1 0 2 2 Result Diagram: 01/16/16 0725 01/19/16 0719 Objective Remarks This is a thin white male who is , awake with a trach tube in place.Responds weakly . HEENT: Pupils are equal and reactive to light. CHEST:Decreased breath sounds, occ wheezes bilateral . CARDIOVASCULAR: S1 and S2 is normal.No murmur. ABDOMEN: Soft, nondistended. BS +. He has a PEG tube in place. EXTREMITIES: Contractures.muscle wasting. NEURO: Awake and has weak extremities. Skin is dry. Assessment and Plan Assessment and Plan IMPRESSION 1. Chronic Respiratory failure. 2. Sepsis, Aspiration. Improved 3. Left basal Pneumonia 4. Tracheobronchitis 5. Parkinson's disease 6. Dementia. 7. Severe Deconditioning. Plan : 1. Continue on Bipap /15, FIo2 30 % at HS 2. Nebs Bid , duoneb. 3. Cont tube feeds Jevity at 40 CC 4. T Bar 40 % daytime. 5. Levsin .25 mg tid prn for Secretions 6. Cont Trach toilet and lavage. 7. Labs in am 1 Darren Kiser MD Jan 20, 2016 18:37
[2016-01-21] VITALS (10 sets, daily range): BP systolic 85–114; BP diastolic 62–78; PULSE 74–100; RESP 18–24; TEMP 96–99.3; O2SAT 95–99
[2016-01-21] MEDS: BETHANECHOL CHL 10 MG TAB PO SCH ×3 (05:01→22:41)
[2016-01-21] MEDS: FREE WATER G-TUBE SCH ×3 (05:01→18:00)
[2016-01-21] MEDS: INSULIN NovoLIN REGULAR SUPPLEMENTAL SCALE SQ SCH ×4 (05:04→18:00)
[2016-01-21 07:25] LABS: AUTOMATED NEUTROPHIL # 8.1 TH/MM3 (1.8-7.7); BASOPHIL # 0.1 TH/MM3 (0-0.2); BASOPHIL % 0.7 % (0.0-2.0); EOSINOPHIL # 0.5 TH/MM3 (0-0.4); EOSINOPHIL % 3.9 % (0.0-4.0); HEMATOCRIT 34.5 % (39.0-51.0); HEMO FLAGS DIFF FINAL; LYMPH % 17.6 % (9.0-44.0); LYMPHOCYTE # 2.1 TH/MM3 (1.0-4.8); MEAN CELL VOLUME 83.9 FL (80.0-100.0); MEAN CORPUSCULAR HEMOGLOBIN 27.1 PG (27.0-34.0); MEAN CORPUSCULAR HGB CONC 32.2 % (32.0-36.0); MONO % 9.2 % (0.0-8.0); NEUT % 68.6 % (16.0-70.0); PLATELET COUNT 254 TH/MM3 (150-450); RED BLOOD COUNT 4.11 MIL/MM3 (4.50-5.90); RED CELL DISTRIBUTION WIDTH 14.4 % (11.6-17.2); WHITE BLOOD COUNT 11.8 TH/MM3 (4.0-11.0)
[2016-01-21] MEDS: SODIUM CHLORIDE 0.9% FLUSH 5 ML FLUSH IVF SCH ×2 (09:00→22:42)
[2016-01-21] MEDS: POTASSIUM CL 40 MEQ/30 ML LIQ UDC GT SCH (09:53)
[2016-01-21] MEDS: LACTOBACILLUS ACIDOPHILUS TAB PO SCH ×3 (09:53→18:12)
[2016-01-21] MEDS: LANSOPRAZOLE SOLUTAB 30 MG TAB NG SCH (09:53)
[2016-01-21] MEDS: CARBIDOPA/LEVODOPA 25 MG/100 MG TAB GT SCH ×4 (09:53→22:42)
[2016-01-21] MEDS: PARoxetine HCL 20 MG TAB G-TUBE SCH (09:53)
[2016-01-21] MEDS: MIDODRINE 5 MG TAB G-TUBE SCH ×2 (09:53→22:42)
[2016-01-21] MEDS: GABAPENTIN 300 MG CAP G-TUBE SCH ×2 (09:53→22:41)
[2016-01-21] MEDS: ARTIFICIAL TEARS OPTH SOLN 15 ML BTL EACH EYE SCH ×3 (09:54→18:13)
[2016-01-21] MEDS: clonazePAM 1 MG TAB PO SCH ×2 (09:54→22:41)
[2016-01-21] MEDS: predniSONE 5 MG TAB PO SCH (09:54)
[2016-01-21] MEDS: COLLAGENASE OINT 30 GM TUBE TOP SCH (09:55)
[2016-01-21] MEDS: RESP: ALBUTEROL 2.5 MG/3 ML NEB (PRN) NEB (11:41)
--- NOTE | 2016-01-21 17:18 | HHI.PR ---
Subjective Remarks The patient was resting but comfortably. He was alert and attempting to respond to questions. Objective Vitals Vital Signs Date Time Temp Pulse Resp B/P Pulse Ox O2 Delivery O2 Flow Rate FiO2 01/21/16 16:32 97.3 94 20 112/76 95 01/21/16 12:08 99.3 100 18 105/76 95 01/21/16 11:42 97 T-Piece 28 Humidified 01/21/16 10:40 96 T-piece 5.00 28 01/21/16 08:31 97.7 74 18 85/62 97 01/21/16 06:07 98 40 01/21/16 04:00 99.1 98 20 110/72 97 01/21/16 01:25 99 40 01/21/16 00:00 98.8 98 24 103/73 98 01/20/16 22:30 Bi-Pap 01/20/16 21:57 100 40 01/20/16 20:00 98.3 87 24 141/91 100 I/O 01/20/16 01/20/16 01/20/16 01/21/16 01/21/16 01/21/16 06:59 14:59 22:59 06:59 14:59 22:59 Intake Total 459 ml 342 ml 770 ml 0 ml Output Total 1000 ml 850 ml 150 ml 200 ml Balance -541 ml -850 ml 192 ml 570 ml 0 ml Intake Oral 0 ml 0 ml Tube Feeding 259 ml 342 ml 310 ml Tube Irrigant 60 ml Other 200 ml 400 ml Output Urine Total 1000 ml 850 ml 150 ml 200 ml # Bowel Movements 2 2 3 4 2 Result Diagram: 01/21/16 0656 01/19/16 0719 Imaging Last Impressions Chest X-Ray 01/19/16 0600 Signed Impressions: Service Date/Time: Tuesday, January 19, 2016 05:56 - CONCLUSION: Questionable nodular densities/patchy small consolidations seen in the left lung. Erlin Barajas MD Abdomen X-Ray 01/12/16 1628 Signed Impressions: Service Date/Time: Tuesday, January 12, 2016 17:35 - CONCLUSION: No evidence of obstruction or free air. Reyes Jewell MD Abdomen Ultrasound 12/06/15 0000 Signed Impressions: Service Date/Time: Sunday, December 06, 2015 17:42 - CONCLUSION: 1. The gallbladder is unremarkable with no evidence of cholelithiasis. 2. Simple cyst in the left kidney. 3. Mild pyelocaliectasis in the right kidney. Salazar Thurman MD Upper Extremity Ultrasound 10/13/15 0000 Signed Impressions: Service Date/Time: Tuesday, October 13, 2015 09:51 - CONCLUSION: 1. No evidence of deep venous thrombosis. John Anderson MD Renal Ultrasound 10/07/15 0000 Signed Impressions: Service Date/Time: Wednesday, October 07, 2015 18:29 - CONCLUSION: 1. No acute findings. 3.6 cm left renal cyst. Putnam catheter in bladder. Amaury Ellsworth MD Tunnelled Chest Tube Removal 08/05/15 1100 Signed Impressions: Service Date/Time: Wednesday, August 05, 2015 11:00 - CONCLUSION: Uncomplicated chest tube removal. Blaine Jackson MD Chest Tube Change 07/31/15 0000 Signed Impressions: Service Date/Time: Friday, July 31, 2015 14:34 - CONCLUSION: Uncomplicated reposition of previously placed chest tube as above. Blaine Jackson MD Chest Tube Insertion 07/30/15 0000 Signed Impressions: Service Date/Time: July 14:50 - CONCLUSION: Uncomplicated chest tube placement as above. Blaine Jackson MD Catheter Change 07/27/15 0000 Signed Impressions: Service Date/Time: Monday, July 27, 2015 14:43 - CONCLUSION: Uncomplicated gastrostomy tube exchange as above. Blaine Jackson MD Chest CT 07/11/15 0000 Signed Impressions: Service Date/Time: Saturday, July 11, 2015 09:49 - CONCLUSION: Scattered patchy densities significantly improved from previous study. Tiny anterior right basilar pneumothorax. Right-sided chest tube in good position. Néstor Matamoros MD Head CT 06/18/151902 Signed Impressions: Service Date/Time: June 19:31 - CONCLUSION: Diffuse atrophy unchanged. No acute intracranial findings. Kush Briscoe MD Abdomen/Pelvis CT 06/18/151902 Signed Impressions: Service Date/Time: June 19:36 - CONCLUSION: 1. Chronic nonspecific urinary bladder wall thickening. Bladder collapsed with Putnam catheter in place. 2. Chronic bilateral mid to lower lung zone groundglass opacity. 3. Nonobstructing left renal calculus. 4. Distended rectum. Kush Briscoe MD Objective Remarks GENERAL: Well-nourished, well-developed patient SKIN: Warm and dry. HEAD: Normocephalic. EYES: No scleral icterus. No injection or drainage. NECK: Trach in place. CARDIOVASCULAR: Regular rate and rhythm without murmurs, gallops, or rubs. RESPIRATORY: Decreased secretions. Moderate air entry. Scattered rhonchi. GASTROINTESTINAL: Abdomen soft, non-tender, nondistended. MUSCULOSKELETAL: No edema. Contractures and deformities of fingers. Coccyx/ sacral decubitus ulcer. NEURO: Seems to respond to some commands. Procedures 07/26- PEG replacement 07/29- right pigtail catheter placement for new pneumothorax Medications and IVs Current Medications Medications (Trade) Dose Ordered Sig/Jsasi Route Start Time Stop Time Status Last Admin (NS Flush) 2 ml UNSCH PRN IVF 06/18/15 21:30 12/05/15 20:49 (NS Flush) 2 ml BID IVF 06/19/15 09:00 01/21/16 09:00 (Tylenol 650 Mg/ 20 ml Liq) 650 mg Q6H PRN TUBE 06/18/15 21:30 12/22/15 09:13 (Tears Naturale Opth Soln) 1 drop TID EACH EYE 06/19/15 09:00 01/21/16 13:40 (Zofran Inj) 4 mg Q6H PRN IV 06/18/15 21:30 11/26/15 11:54 (Neurontin) 300 mg BID G-TUBE 06/19/15 09:00 01/21/16 09:53 (Lactinex) 1 tab TID PO 06/19/15 09:00 01/21/16 13:40 (Paxil) 20 mg DAILY G-TUBE 06/19/15 09:00 01/21/16 09:53 (Pill Splitter) 1 ea UNSCH PRN OTHER 06/19/15 03:30 06/28/15 09:35 (Prevacid Odt) 30 mg DAILY NG 07/08/15 09:00 01/21/16 09:53 (Morphine Inj) 2 mg Q3H PRN IV PUSH 07/28/15 00:45 01/09/16 01:53 (Peridex 0.12% Liq) 15 ml BID@08,20 MT 07/29/15 20:00 01/20/16 20:00 (Lovenox Inj) 40 mg Q24H SQ 08/09/15 22:00 Hold 12/05/15 20:49 ([place] 5-325 Mg) 1 tab Q6H PRN PO 08/15/15 15:45 01/04/16 00:21 (Sublimaze Inj) 50 mcg Q2H PRN IV PUSH 08/15/15 15:45 01/15/16 13:10 (Santyl Oint) 1 applic DAILY TOP 08/21/15 09:00 01/21/16 09:55 (Levsin Liq) 0.125 mg Q4H PRN PO 09/06/15 11:00 12/27/15 20:27 (D50w (Vial) Inj) 25 ml UNSCH PRN IV PUSH 10/12/15 17:30 01/06/16 20:14 (Glucagon Inj) 1 mg UNSCH PRN OTHER 10/12/15 17:30 (NovoLIN R SUPPLEMENTAL SCALE) 1 Q6H SQ 10/12/15 18:00 01/12/16 13:25 (Proamatine) 2.5 mg BID G-TUBE 11/15/15 21:00 01/21/16 09:53 (Brethine Inj) 1 mg UNSCH PRN SQ 12/06/15 06:45 (Ativan Inj) 1 mg Q3HR PRN IVP 12/15/15 17:00 01/12/16 22:14 (Deltasone) 2.5 mg DAILY PO 12/23/15 09:00 01/21/16 09:54 (Free Water) 200 ml Q6HR G-TUBE 01/03/16 18:00 01/21/16 12:00 (KCl 40 Meq/30 ml Liq) 20 meq DAILY GT 01/08/16 17:00 01/21/16 09:53 (Urecholine) 10 mg Q8HR PO 01/13/16 22:00 01/21/16 13:41 (Sinemet 25-100 Mg) 1.5 tab QID GT 01/14/16 21:00 01/21/16 13:40 (KlonoPIN) 1 mg BID PO 01/20/16 21:00 12/15/16 09:54 (ZyPREXA) 2.5 mg Q48H GT 01/21/16 21:00 Date of Insertion: Dec 16, 2015 A/P Problem List: (1) Sepsis due to urinary tract infection ICD Code: A41.9 Status: Resolved (2) Acute respiratory failure ICD Code: J96.00 Status: Resolved (3) Chronic respiratory failure ICD Code: J96.10 Status: Chronic (4) Parkinson disease ICD Code: G20 Status: Chronic (5) UTI (urinary tract infection) ICD Code: N39.0 Status: Acute (6) Encephalopathy ICD Code: G93.40 Status: Resolved Assessment and Plan 01/20: No major changes. The patient was alert and attempted to open his eyes in response to questions and not his head at times. S/P Septic shock Recurrent aspiration pneumonitis. Sputum growing Klebsiella and Pseudomonas. - Vancomycin and Levaquin d/c 01/18. Monitor. Chronic respiratory failure Chronic tracheostomy. Tolerated T piece. S/P recurrent right pneumothorax status post pigtail catheter removal. Currently on 28% oxygen 01/20. Appreciate pulmonology consult. - Suction secretions and Levsin as needed - Duo nebs 4 times a day and when necessary. S/p colistin nebs and Solumedrol. - Follow up with pulmonology. Metabolic Encephalopathy Parkinson's disease underlying. Appreciate neuro consult. CT head 06/18/15: - diffuse atrophy unchanged. No acute intracranial findings. - Continue cognitive efforts and pain meds. - Parkinson's medication increased by neurology. Have decreased antipsychotics , plan to discontinue in 1-2 days. - started to wean clonazepam 01/16. Malnutrition/protein calorie - moderate Status post PEG. Concern for hematemesis 12/05. GI evaluated pt. Gastroccult was negative and hemoglobin has been stable. - 01/14. Switch to GJ tube due to aspiration. Consulting IR to evaluate GJ tube 01/19. - Current Colace/senna for bowel regimen. - continue PPI.- Prevacid. Bilateral lower extremity Contractures Stage II DU. - Wound care team following. - Continue physical therapy. GI prophylaxis: PPI. Stool softener PRN constipation. DVT PPx: Lovenox Discharge Planning Awaiting clinical improvement. Problem Qualifiers (1) Chronic respiratory failure: Qualified Code: J96.10 - Chronic respiratory failure, unspecified whether with hypoxia or hypercapnia Salazar Santa DO Jan 21, 2016 17:18
--- NOTE | 2016-01-21 19:05 | HHI.PR ---
Subjective Remarks Awake and remains lethargic. Respondede to some commands. Breathing shallow. and 0n a T bar FIO2 35 % On tube feeds at 35 CC. Objective Vital Signs Date Time Temp Pulse Resp B/P Pulse Ox O2 Delivery O2 Flow Rate FiO2 01/21/16 16:32 97.3 94 20 112/76 95 01/21/16 12:08 99.3 100 18 105/76 95 01/21/16 11:42 97 T-Piece 28 Humidified 01/21/16 10:40 96 T-piece 5.00 28 01/21/16 08:31 97.7 74 18 85/62 97 01/21/16 06:07 98 40 01/21/16 04:00 99.1 98 20 110/72 97 01/21/16 01:25 99 40 01/21/16 00:00 98.8 98 24 103/73 98 01/20/16 22:30 Bi-Pap 01/20/16 21:57 100 40 01/20/16 20:00 98.3 87 24 141/91 100 I/O 01/20/16 01/20/16 01/20/16 01/21/16 01/21/16 01/21/16 07:00 15:00 23:00 07:00 15:00 23:00 Intake Total 459 ml 342 ml 770 ml 0 ml Output Total 1000 ml 850 ml 150 ml 200 ml Balance -541 ml -850 ml 192 ml 570 ml 0 ml Intake Oral 0 ml 0 ml Tube Feeding 259 ml 342 ml 310 ml Tube Irrigant 60 ml Other 200 ml 400 ml Output Urine Total 1000 ml 850 ml 150 ml 200 ml # Bowel Movements 2 2 3 4 2 Result Diagram: 01/21/16 0656 01/19/16 0719 Objective Remarks This is a thin white male who is , awake with a trach tube in place.Responds weakly . HEENT: Pupils are equal and reactive to light. CHEST:Decreased breath sounds, occ wheezes . CARDIOVASCULAR: S1 and S2 is normal.No murmur. ABDOMEN: Soft, nondistended. BS +. He has a PEG tube in place. EXTREMITIES: Contractures.muscle wasting. NEURO: Awake and has weak extremities. Skin is dry. Assessment and Plan Assessment and Plan IMPRESSION 1. Chronic Respiratory failure. 2. Sepsis, Aspiration. Improved 3. Left basal Pneumonia 4. Tracheobronchitis 5. Parkinson's disease 6. Dementia. 7. Severe Deconditioning. Plan : 1. Continue on Bipap 06/20, FIo2 28 % at HS 2. Nebs Bid , duoneb. 3. Cont tube feeds Jevity at 40 CC 4. T Bar 28 % daytime. 5. Levsin .25 mg tid prn for Secretions 6. Cont Trach toilet and lavage. 7. FCI placement. 1 Darren Kiser MD Jan 21, 2016 19:05
[2016-01-21] MEDS: CHLORHEXIDINE 0.12% (ORAL KIT) 15 ML CUP MT SCH (20:00)
[2016-01-21] MEDS: OLANZapine 2.5 MG TAB GT SCH (22:41)
[2016-01-22] VITALS (7 sets, daily range): BP systolic 84–142; BP diastolic 68–94; PULSE 79–90; RESP 20–24; TEMP 95.8–98.3; O2SAT 95–99
[2016-01-22] MEDS: INSULIN NovoLIN REGULAR SUPPLEMENTAL SCALE SQ SCH ×4 (06:00→18:00)
[2016-01-22] MEDS: FREE WATER G-TUBE SCH ×4 (06:00→18:00)
[2016-01-22] MEDS: BETHANECHOL CHL 10 MG TAB PO SCH ×3 (06:32→22:57)
[2016-01-22] MEDS: CHLORHEXIDINE 0.12% (ORAL KIT) 15 ML CUP MT SCH ×2 (08:00→20:00)
[2016-01-22] MEDS: POTASSIUM CL 40 MEQ/30 ML LIQ UDC GT SCH (11:05)
[2016-01-22] MEDS: CARBIDOPA/LEVODOPA 25 MG/100 MG TAB GT SCH ×4 (11:05→22:57)
[2016-01-22] MEDS: clonazePAM 1 MG TAB PO SCH (11:05)
[2016-01-22] MEDS: PARoxetine HCL 20 MG TAB G-TUBE SCH (11:06)
[2016-01-22] MEDS: LACTOBACILLUS ACIDOPHILUS TAB PO SCH ×3 (11:06→18:00)
[2016-01-22] MEDS: MIDODRINE 5 MG TAB G-TUBE SCH ×2 (11:06→22:57)
[2016-01-22] MEDS: GABAPENTIN 300 MG CAP G-TUBE SCH ×2 (11:06→22:56)
[2016-01-22] MEDS: LANSOPRAZOLE SOLUTAB 30 MG TAB NG SCH (11:06)
[2016-01-22] MEDS: predniSONE 5 MG TAB PO SCH (11:07)
[2016-01-22] MEDS: QUEtiapine FUMARATE 25 MG TAB G-TUBE SCH (11:07)
[2016-01-22] MEDS: ARTIFICIAL TEARS OPTH SOLN 15 ML BTL EACH EYE SCH ×3 (11:07→18:54)
[2016-01-22] MEDS: SODIUM CHLORIDE 0.9% FLUSH 5 ML FLUSH IVF SCH ×2 (11:08→22:58)
[2016-01-22] MEDS: COLLAGENASE OINT 30 GM TUBE TOP SCH (11:08)
--- NOTE | 2016-01-22 16:17 | HHI.PR ---
Subjective Remarks The patient was alert and seemed to be attempting to talk. He was moving his right hand in response to palpation of his abdomen. Objective Vitals Vital Signs Date Time Temp Pulse Resp B/P Pulse Ox O2 Delivery O2 Flow Rate FiO2 01/22/16 12:00 96.0 90 20 84/68 95 01/22/16 10:45 97 T-piece 6.00 28 01/22/16 08:08 96.1 83 20 114/80 99 01/22/16 07:15 T-Piece 28 Humidified 01/22/16 04:00 95.8 79 24 142/88 98 01/22/16 03:55 T-Piece 28 Humidified 01/22/16 00:00 96.7 80 24 131/94 98 01/21/16 22:35 97 40 01/21/16 20:00 96.0 75 24 114/78 97 01/21/16 16:32 97.3 94 20 112/76 95 I/O 01/21/16 01/21/16 01/21/16 01/22/16 01/22/16 01/22/16 07:00 15:00 23:00 07:00 15:00 23:00 Intake Total 770 ml 0 ml Output Total 200 ml 600 ml 200 ml Balance 570 ml -600 ml -200 ml Intake Oral 0 ml Tube Feeding 310 ml Tube Irrigant 60 ml Other 400 ml Output Urine Total 200 ml 600 ml 200 ml # Bowel Movements 4 4 4 Result Diagram: 01/21/16 0656 01/19/16 0719 Imaging Last Impressions Chest X-Ray 01/19/16 0600 Signed Impressions: Service Date/Time: Tuesday, January 19, 2016 05:56 - CONCLUSION: Questionable nodular densities/patchy small consolidations seen in the left lung. Erlin Barajas MD Abdomen X-Ray 01/12/16 1628 Signed Impressions: Service Date/Time: Tuesday, January 12, 2016 17:35 - CONCLUSION: No evidence of obstruction or free air. Reyes Jewell MD Abdomen Ultrasound 12/06/15 0000 Signed Impressions: Service Date/Time: Sunday, December 06, 2015 17:42 - CONCLUSION: 1. The gallbladder is unremarkable with no evidence of cholelithiasis. 2. Simple cyst in the left kidney. 3. Mild pyelocaliectasis in the right kidney. Salazar Thurman MD Upper Extremity Ultrasound 10/13/15 0000 Signed Impressions: Service Date/Time: Tuesday, October 13, 2015 09:51 - CONCLUSION: 1. No evidence of deep venous thrombosis. John Anderson MD Renal Ultrasound 10/07/15 0000 Signed Impressions: Service Date/Time: Wednesday, October 07, 2015 18:29 - CONCLUSION: 1. No acute findings. 3.6 cm left renal cyst. Putnam catheter in bladder. Amaury Ellsworth MD Tunnelled Chest Tube Removal 08/05/15 1100 Signed Impressions: Service Date/Time: Wednesday, August 05, 2015 11:00 - CONCLUSION: Uncomplicated chest tube removal. Blaine Jackson MD Chest Tube Change 07/31/15 0000 Signed Impressions: Service Date/Time: Friday, July 31, 2015 14:34 - CONCLUSION: Uncomplicated reposition of previously placed chest tube as above. Blaine Jackson MD Chest Tube Insertion 07/30/15 0000 Signed Impressions: Service Date/Time: July 14:50 - CONCLUSION: Uncomplicated chest tube placement as above. Blaine Jackson MD Catheter Change 07/27/15 0000 Signed Impressions: Service Date/Time: Monday, July 27, 2015 14:43 - CONCLUSION: Uncomplicated gastrostomy tube exchange as above. Blaine Jackson MD Chest CT 07/11/15 Signed Impressions: Service Date/Time: Saturday, July 11, 2015 09:49 - CONCLUSION: Scattered patchy densities significantly improved from previous study. Tiny anterior right basilar pneumothorax. Right-sided chest tube in good position. Néstor Matamoros MD Head CT 06/18/151902 Signed Impressions: Service Date/Time: June 19:31 - CONCLUSION: Diffuse atrophy unchanged. No acute intracranial findings. Kush Briscoe MD Abdomen/Pelvis CT 06/18/151902 Signed Impressions: Service Date/Time: June 19:36 - CONCLUSION: 1. Chronic nonspecific urinary bladder wall thickening. Bladder collapsed with Putnam catheter in place. 2. Chronic bilateral mid to lower lung zone groundglass opacity. 3. Nonobstructing left renal calculus. 4. Distended rectum. Kush Briscoe MD Objective Remarks GENERAL: Well-nourished, well-developed patient SKIN: Warm and dry. HEAD: Normocephalic. EYES: No scleral icterus. No injection or drainage. NECK: Trach in place. CARDIOVASCULAR: Regular rate and rhythm without murmurs, gallops, or rubs. RESPIRATORY: Decreased secretions. Moderate air entry. Scattered rhonchi. GASTROINTESTINAL: Abdomen soft, non-tender, nondistended. MUSCULOSKELETAL: No edema. Contractures and deformities of fingers. Coccyx/ sacral decubitus ulcer. NEURO: Seems to respond to some commands. Procedures 07/26- PEG replacement 07/29- right pigtail catheter placement for new pneumothorax Medications and IVs Current Medications Medications (Trade) Dose Ordered Sig/Jassi Route Start Time Stop Time Status Last Admin (NS Flush) 2 ml UNSCH PRN IVF 06/18/15 21:30 12/05/15 20:49 (NS Flush) 2 ml BID IVF 06/19/15 09:00 01/22/16 11:08 (Tylenol 650 Mg/ 20 ml Liq) 650 mg Q6H PRN TUBE 06/18/15 21:30 12/22/15 09:13 (Tears Naturale Opth Soln) 1 drop TID EACH EYE 06/19/15 09:00 01/22/16 11:07 (Zofran Inj) 4 mg Q6H PRN IV 06/18/15 21:30 11/26/15 11:54 (Neurontin) 300 mg BID G-TUBE 06/19/15 09:00 01/22/16 11:06 (Lactinex) 1 tab TID PO 06/19/15 09:00 01/22/16 14:07 (Paxil) 20 mg DAILY G-TUBE 06/19/15 09:00 01/22/16 11:06 (Pill Splitter) 1 ea UNSCH PRN OTHER 06/19/15 03:30 06/28/15 09:35 (Prevacid Odt) 30 mg DAILY NG 07/08/15 09:00 01/22/16 11:06 (Morphine Inj) 2 mg Q3H PRN IV PUSH 07/28/15 00:45 01/09/16 01:53 (Peridex 0.12% Liq) 15 ml BID@08,20 MT 07/29/15 20:00 01/20/16 20:00 (Lovenox Inj) 40 mg Q24H SQ 08/09/15 22:00 Hold 12/05/15 20:49 ([place] 5-325 Mg) 1 tab Q6H PRN PO 08/15/15 15:45 01/04/16 00:21 (Sublimaze Inj) 50 mcg Q2H PRN IV PUSH 08/15/15 15:45 01/15/16 13:10 (Santyl Oint) 1 applic DAILY TOP 08/21/15 09:00 01/22/16 11:08 (Levsin Liq) 0.125 mg Q4H PRN PO 09/06/15 11:00 12/27/15 20:27 (D50w (Vial) Inj) 25 ml UNSCH PRN IV PUSH 10/12/15 17:30 01/06/16 20:14 (Glucagon Inj) 1 mg UNSCH PRN OTHER 10/12/15 17:30 (NovoLIN R SUPPLEMENTAL SCALE) 1 Q6H SQ 10/12/15 18:00 01/12/16 13:25 (Proamatine) 2.5 mg BID G-TUBE 11/15/15 21:00 01/22/16 11:06 (Brethine Inj) 1 mg UNSCH PRN SQ 12/06/15 06:45 (Ativan Inj) 1 mg Q3HR PRN IVP 12/15/15 17:00 01/12/16 22:14 (Deltasone) 2.5 mg DAILY PO 12/23/15 09:00 01/22/16 11:07 (Free Water) 200 ml Q6HR G-TUBE 01/03/16 18:00 01/22/16 11:08 (KCl 40 Meq/30 ml Liq) 20 meq DAILY GT 01/08/16 17:00 01/22/16 11:05 (Urecholine) 10 mg Q8HR PO 01/13/16 22:00 01/22/16 14:07 (Sinemet 25-100 Mg) 1.5 tab QID GT 01/14/16 21:00 01/22/16 14:07 (KlonoPIN) 1 mg BID PO 01/20/16 21:00 01/22/16 11:05 (ZyPREXA) 2.5 mg Q48H GT 01/21/16 21:00 01/21/16 22:41 Date of Insertion: Dec 16, 2015 A/P Problem List: (1) Sepsis due to urinary tract infection ICD Code: A41.9 Status: Resolved (2) Acute respiratory failure ICD Code: J96.00 Status: Resolved (3) Chronic respiratory failure ICD Code: J96.10 Status: Chronic (4) Parkinson disease ICD Code: G20 Status: Chronic (5) UTI (urinary tract infection) ICD Code: N39.0 Status: Acute (6) Encephalopathy ICD Code: G93.40 Status: Resolved Assessment and Plan S/P Septic shock Recurrent aspiration pneumonitis. Sputum growing Klebsiella and Pseudomonas. - Vancomycin and Levaquin d/c 01/18. Monitor. Chronic respiratory failure Chronic tracheostomy. Tolerated T piece. S/P recurrent right pneumothorax status post pigtail catheter removal. Currently on 28% oxygen 01/21. Appreciate pulmonology consult. - Suction secretions and Levsin as needed - Duo nebs 4 times a day and when necessary. S/p colistin nebs and Solumedrol. - Follow up with pulmonology. Metabolic Encephalopathy Parkinson's disease underlying. Appreciate neuro consult. CT head 06/18/15: - diffuse atrophy unchanged. No acute intracranial findings. - Continue cognitive efforts and pain meds. - Parkinson's medication increased by neurology. Have decreased antipsychotics to QOD dosing. Plan to discontinue in 1-2 days. - started to wean clonazepam, changed to 0.5 mg BID 01/21. Malnutrition/protein calorie - moderate Status post PEG. Concern for hematemesis 12/05. GI evaluated pt. Gastroccult was negative and hemoglobin has been stable. Tolerating TFs 01/21. - 01/14. Switch to GJ tube due to aspiration. Consulting IR to evaluate GJ tube 01/19. - Current Colace/senna for bowel regimen. - continue PPI.- Prevacid. Bilateral lower extremity Contractures Stage II DU. - Wound care team following. - Continue physical therapy. GI prophylaxis: PPI. Stool softener PRN constipation. DVT PPx: Lovenox Discharge Planning Awaiting clinical improvement. Problem Qualifiers (1) Chronic respiratory failure: Qualified Code: J96.10 - Chronic respiratory failure, unspecified whether with hypoxia or hypercapnia Salazar Santa DO Jan 22, 2016 16:17
--- NOTE | 2016-01-22 18:20 | HHI.PR ---
Subjective Remarks Awake and remains lethargic. Responds to some commands. Breathing shallow. and 0n a T bar FIO2 35 % On tube feeds at 35 CC. No change . Objective Vital Signs Date Time Temp Pulse Resp B/P Pulse Ox O2 Delivery O2 Flow Rate FiO2 01/22/16 16:21 98.3 81 20 101/82 96 01/22/16 12:00 96.0 90 20 84/68 95 01/22/16 10:45 97 T-piece 6.00 28 01/22/16 08:08 96.1 83 20 114/80 99 01/22/16 07:15 T-Piece 28 Humidified 01/22/16 04:00 95.8 79 24 142/88 98 01/22/16 03:55 T-Piece 28 Humidified 01/22/16 00:00 96.7 80 24 131/94 98 01/21/16 22:35 97 40 01/21/16 20:00 96.0 75 24 114/78 97 I/O 01/21/16 01/21/16 01/21/16 01/22/16 01/22/16 01/22/16 07:00 15:00 23:00 07:00 15:00 23:00 Intake Total 770 ml 0 ml Output Total 200 ml 600 ml 200 ml 500 ml Balance 570 ml -600 ml -200 ml -500 ml Intake Oral 0 ml Tube Feeding 310 ml Tube Irrigant 60 ml Other 400 ml Output Urine Total 200 ml 600 ml 200 ml 500 ml # Bowel Movements 4 4 4 2 Result Diagram: 01/21/16 0656 01/19/16 0719 Objective Remarks This is a thin white male who is , awake with a trach tube in place.Responds weakly . HEENT: Pupils are equal and reactive to light. CHEST:Decreased breath sounds,no crackles. CARDIOVASCULAR: S1 and S2 is normal.No murmur. ABDOMEN: Soft, nondistended. BS +. He has a PEG tube in place. EXTREMITIES: Contractures.muscle wasting. NEURO: Awake and has weak extremities. Skin is dry. Assessment and Plan Assessment and Plan IMPRESSION 1. Chronic Respiratory failure. 2. Sepsis, Aspiration. Improved 3. Left basal Pneumonia 4. Tracheobronchitis 5. Parkinson's disease 6. Dementia. 7. Severe Deconditioning. Plan : 1. Continue on Bipap 06/20, FIo2 28 % at HS 2. Nebs Bid , duoneb. 3. Cont tube feeds Jevity at 40 CC 4. T Bar 28 % daytime. 5. Levsin .25 mg tid prn for Secretions 6. Cont Trach toilet and lavage. 7. Labs in am. 1 Darren Kiser MD Jan 22, 2016 18:20
[2016-01-22] MEDS: clonazePAM 0.5 MG TAB PO SCH (22:57)
[2016-01-23] VITALS (10 sets, daily range): BP systolic 99–136; BP diastolic 65–83; PULSE 80–95; RESP 16–20; TEMP 95.7–98.2; O2SAT 94–99
[2016-01-23] MEDS: BETHANECHOL CHL 10 MG TAB PO SCH ×3 (05:40→20:25)
[2016-01-23] MEDS: FREE WATER G-TUBE SCH ×4 (05:41→17:59)
[2016-01-23] MEDS: INSULIN NovoLIN REGULAR SUPPLEMENTAL SCALE SQ SCH ×4 (05:43→17:58)
[2016-01-23] MEDS: CHLORHEXIDINE 0.12% (ORAL KIT) 15 ML CUP MT SCH ×2 (08:00→20:00)
[2016-01-23] MEDS: SODIUM CHLORIDE 0.9% FLUSH 5 ML FLUSH IVF SCH ×2 (09:00→20:25)
[2016-01-23] MEDS: ARTIFICIAL TEARS OPTH SOLN 15 ML BTL EACH EYE SCH ×3 (09:00→17:59)
[2016-01-23] MEDS: POTASSIUM CL 40 MEQ/30 ML LIQ UDC GT SCH (09:21)
[2016-01-23] MEDS: clonazePAM 0.5 MG TAB PO SCH ×2 (09:22→20:25)
[2016-01-23] MEDS: PARoxetine HCL 20 MG TAB G-TUBE SCH (09:22)
[2016-01-23] MEDS: predniSONE 5 MG TAB PO SCH (09:23)
[2016-01-23] MEDS: CARBIDOPA/LEVODOPA 25 MG/100 MG TAB GT SCH ×4 (09:23→20:25)
[2016-01-23] MEDS: MIDODRINE 5 MG TAB G-TUBE SCH ×2 (09:23→20:25)
[2016-01-23] MEDS: LACTOBACILLUS ACIDOPHILUS TAB PO SCH ×3 (09:23→17:58)
[2016-01-23] MEDS: GABAPENTIN 300 MG CAP G-TUBE SCH ×2 (09:23→20:25)
[2016-01-23] MEDS: LANSOPRAZOLE SOLUTAB 30 MG TAB NG SCH (09:24)
--- NOTE | 2016-01-23 10:35 | HHI.PR ---
Objective Vitals Vital Signs Date Time Temp Pulse Resp B/P Pulse Ox O2 Delivery O2 Flow Rate FiO2 01/23/16 08:00 96.3 83 18 114/83 96 01/23/16 07:50 97 T-piece 6.00 28 01/23/16 05:45 T-Piece 7.00 30 Humidified 01/23/16 05:24 98.2 80 20 117/80 95 01/23/16 04:05 95 BiPAP 30 01/23/16 04:05 95 30 01/23/16 00:00 96.3 86 20 136/74 96 01/22/16 21:19 97.6 82 21 111/79 96 01/22/16 16:21 98.3 81 20 101/82 96 01/22/16 12:00 96.0 90 20 84/68 95 01/22/16 10:45 97 T-piece 6.00 28 I/O 01/22/16 01/22/16 01/22/16 01/23/16 01/23/16 01/23/16 06:59 14:59 22:59 06:59 14:59 22:59 Intake Total 1521 ml Output Total 200 ml 900 ml 300 ml Balance -200 ml 621 ml -300 ml Tube Feeding 1521 ml Output Urine Total 200 ml 900 ml 300 ml # Bowel Movements 4 3 Result Diagram: 01/21/16 0656 01/19/16 0719 Objective Remarks GENERAL: Cachectic, contracted patient, chronic ill-looking, in no apparent distress. appears comfortable CARDIOVASCULAR: Regular rate and rhythm without murmurs. T piece in place. RESPIRATORY: fair air entry, no wheezing GASTROINTESTINAL: Abdomen soft, non-tender, nondistended. PEG tube in place MUSCULOSKELETAL: Lower extremity in crossover contraction , positive pedal pulses,. NEURO: didn't open eyes today, when I tried to open, he resisted. Doesn't answer questions Procedures 07/26- PEG replacement 07/29- right pigtail catheter placement for new pneumothorax Date of Insertion: Dec 16, 2015 A/P Problem List: (1) Sepsis due to urinary tract infection ICD Code: A41.9 Status: Resolved (2) Acute respiratory failure ICD Code: J96.00 Status: Resolved (3) Chronic respiratory failure ICD Code: J96.10 Status: Chronic (4) Parkinson disease ICD Code: G20 Status: Chronic (5) UTI (urinary tract infection) ICD Code: N39.0 Status: Acute (6) Encephalopathy ICD Code: G93.40 Status: Resolved Assessment and Plan S/P Septic shock Recurrent aspiration pneumonitis. Sputum growing Klebsiella and Pseudomonas. - Vancomycin and Levaquin d/c 01/18. Monitor. Chronic respiratory failure Chronic tracheostomy. Tolerated T piece. S/P recurrent right pneumothorax status post pigtail catheter removal. Currently on 28% oxygen 01/21. Appreciate pulmonology consult. continue bipap at night. - Suction secretions and Levsin as needed - Duo nebs 4 times a day and when necessary. S/p colistin nebs and Solumedrol. Metabolic Encephalopathy Parkinson's disease underlying. Appreciate neuro consult. CT head 06/18/15: - diffuse atrophy unchanged. No acute intracranial findings. - Continue cognitive efforts and pain meds. - Parkinson's medication increased by neurology. Have decreased antipsychotics to QOD dosing. Plan to discontinue in 1-2 days. - started to wean clonazepam, changed to 0.5 mg BID 01/21. Malnutrition/protein calorie - moderate Status post PEG. Concern for hematemesis 12/05. GI evaluated pt. Gastroccult was negative and hemoglobin has been stable. Tolerating TFs 01/21. - 01/14. Switch to GJ tube due to aspiration. Consulting IR to evaluate GJ tube 01/19. - Current Colace/senna for bowel regimen. - continue PPI.- Prevacid. Bilateral lower extremity Contractures Stage II DU. - Wound care team following. - Continue physical therapy. GI prophylaxis: PPI. Stool softener PRN constipation. DVT PPx: Lovenox Discharge Planning Awaiting clinical improvement. Difficult placement. Problem Qualifiers (1) Chronic respiratory failure: Qualified Code: J96.10 - Chronic respiratory failure, unspecified whether with hypoxia or hypercapnia Dory Mckeon MD Jan 23, 2016 10:35
[2016-01-23] MEDS: COLLAGENASE OINT 30 GM TUBE TOP SCH (14:00)
[2016-01-23] MEDS: OLANZapine 2.5 MG TAB GT SCH (20:25)
[2016-01-24] VITALS (10 sets, daily range): BP systolic 106–128; BP diastolic 69–82; PULSE 78–87; RESP 16–20; TEMP 96–97.8; O2SAT 91–99
[2016-01-24] MEDS: FREE WATER G-TUBE SCH ×4 (06:00→17:45)
[2016-01-24] MEDS: BETHANECHOL CHL 10 MG TAB PO SCH ×3 (06:00→22:00)
[2016-01-24] MEDS: INSULIN NovoLIN REGULAR SUPPLEMENTAL SCALE SQ SCH ×4 (06:00→17:46)
[2016-01-24] MEDS: CHLORHEXIDINE 0.12% (ORAL KIT) 15 ML CUP MT SCH ×2 (08:00→20:00)
[2016-01-24] MEDS: predniSONE 5 MG TAB PO SCH (08:17)
[2016-01-24] MEDS: GABAPENTIN 300 MG CAP G-TUBE SCH ×2 (08:17→21:00)
[2016-01-24] MEDS: QUEtiapine FUMARATE 25 MG TAB G-TUBE SCH (08:18)
[2016-01-24] MEDS: PARoxetine HCL 20 MG TAB G-TUBE SCH (08:18)
[2016-01-24] MEDS: LANSOPRAZOLE SOLUTAB 30 MG TAB NG SCH (08:18)
[2016-01-24] MEDS: MIDODRINE 5 MG TAB G-TUBE SCH ×2 (08:18→21:00)
[2016-01-24] MEDS: clonazePAM 0.5 MG TAB PO SCH ×2 (08:18→21:00)
[2016-01-24] MEDS: POTASSIUM CL 40 MEQ/30 ML LIQ UDC GT SCH (08:18)
[2016-01-24] MEDS: LACTOBACILLUS ACIDOPHILUS TAB PO SCH ×3 (08:18→17:46)
[2016-01-24] MEDS: CARBIDOPA/LEVODOPA 25 MG/100 MG TAB GT SCH ×4 (08:19→21:00)
--- NOTE | 2016-01-24 08:39 | HHI.PR ---
Subjective Remarks awake w eyes open, briefly moves his mouth/lips but I cannot hear anything. able to move his right arm upon request Objective Vitals Vital Signs Date Time Temp Pulse Resp B/P Pulse Ox O2 Delivery O2 Flow Rate FiO2 01/24/16 04:20 99 30 01/24/16 04:00 97.8 86 18 110/72 91 01/24/16 01:00 96 30 01/24/16 01:00 96 30 01/24/16 00:00 97.3 82 20 128/82 98 01/23/16 22:19 94 T-piece 28 01/23/16 20:00 97.8 95 20 99/70 96 01/23/16 20:00 96 T-Piece 28 01/23/16 15:43 97.0 87 16 120/65 99 01/23/16 12:00 95.7 80 17 111/67 99 01/23/16 10:00 01/23/16 08:50 T-Piece 7.00 28 I/O 01/23/16 01/23/16 01/23/16 01/24/16 01/24/16 01/24/16 07:00 15:00 23:00 07:00 15:00 23:00 Intake Total 360 ml 720 ml Output Total 300 ml 1350.0 ml 400 ml Balance -300 ml -990.0 ml 320 ml Tube Feeding 160 ml 320 ml Other 200 ml 400 ml Output Urine Total 300 ml 1350 ml 400 ml Tube Feeding Residual Discard 0 ml # Bowel Movements 2 4 Result Diagram: 01/21/16 0656 Imaging Last Impressions Chest X-Ray 01/19/16 0600 Signed Impressions: Service Date/Time: Tuesday, January 19, 2016 05:56 - CONCLUSION: Questionable nodular densities/patchy small consolidations seen in the left lung. Erlin Barajas MD Abdomen X-Ray 01/12/16 1628 Signed Impressions: Service Date/Time: Tuesday, January 12, 2016 17:35 - CONCLUSION: No evidence of obstruction or free air. Reyes Jewell MD Abdomen Ultrasound 12/06/15 0000 Signed Impressions: Service Date/Time: Sunday, December 06, 2015 17:42 - CONCLUSION: 1. The gallbladder is unremarkable with no evidence of cholelithiasis. 2. Simple cyst in the left kidney. 3. Mild pyelocaliectasis in the right kidney. Salazar Thurman MD Upper Extremity Ultrasound 10/13/15 0000 Signed Impressions: Service Date/Time: Tuesday, October 13, 2015 09:51 - CONCLUSION: 1. No evidence of deep venous thrombosis. John Anderson MD Renal Ultrasound 10/07/15 0000 Signed Impressions: Service Date/Time: Wednesday, October 07, 2015 18:29 - CONCLUSION: 1. No acute findings. 3.6 cm left renal cyst. Putnam catheter in bladder. Amaury Ellsworth MD Tunnelled Chest Tube Removal 08/05/15 1100 Signed Impressions: Service Date/Time: Wednesday, August 05, 2015 11:00 - CONCLUSION: Uncomplicated chest tube removal. Blaine Jackson MD Chest Tube Change 07/31/15 0000 Signed Impressions: Service Date/Time: Friday, July 31, 2015 14:34 - CONCLUSION: Uncomplicated reposition of previously placed chest tube as above. Blaine Jackson MD Chest Tube Insertion 07/30/15 0000 Signed Impressions: Service Date/Time: July 14:50 - CONCLUSION: Uncomplicated chest tube placement as above. Blaine Jackson MD Catheter Change 07/27/15 0000 Signed Impressions: Service Date/Time: Monday, July 27, 2015 14:43 - CONCLUSION: Uncomplicated gastrostomy tube exchange as above. Blaine Jackson MD Chest CT 07/11/15 Signed Impressions: Service Date/Time: Saturday, July 11, 2015 09:49 - CONCLUSION: Scattered patchy densities significantly improved from previous study. Tiny anterior right basilar pneumothorax. Right-sided chest tube in good position. Néstor Matamoros MD Head CT 06/18/151902 Signed Impressions: Service Date/Time: June 19:31 - CONCLUSION: Diffuse atrophy unchanged. No acute intracranial findings. Kush Briscoe MD Abdomen/Pelvis CT 06/18/151902 Signed Impressions: Service Date/Time: June 19:36 - CONCLUSION: 1. Chronic nonspecific urinary bladder wall thickening. Bladder collapsed with Putnam catheter in place. 2. Chronic bilateral mid to lower lung zone groundglass opacity. 3. Nonobstructing left renal calculus. 4. Distended rectum. Kush Briscoe MD Objective Remarks GENERAL: Cachectic, contracted patient, chronic ill-looking, in no apparent distress. appears comfortable CARDIOVASCULAR: Regular rate and rhythm without murmurs. T piece in place. RESPIRATORY: fair air entry, no wheezing GASTROINTESTINAL: Abdomen soft, non-tender, nondistended. PEG tube in place MUSCULOSKELETAL: Lower extremity in crossover contraction , positive pedal pulses,. NEURO: eyes open today, moves right upper extremity. Doesn't answer questions Procedures 07/26- PEG replacement 07/29- right pigtail catheter placement for new pneumothorax Date of Insertion: Dec 16, 2015 A/P Problem List: (1) Sepsis due to urinary tract infection ICD Code: A41.9 Status: Resolved (2) Acute respiratory failure ICD Code: J96.00 Status: Resolved (3) Chronic respiratory failure ICD Code: J96.10 Status: Chronic (4) Parkinson disease ICD Code: G20 Status: Chronic (5) UTI (urinary tract infection) ICD Code: N39.0 Status: Acute (6) Encephalopathy ICD Code: G93.40 Status: Resolved Assessment and Plan S/P Septic shock Recurrent aspiration pneumonitis. Sputum growing Klebsiella and Pseudomonas. - Vancomycin and Levaquin d/c 01/18. Monitor. Chronic respiratory failure Chronic tracheostomy. Tolerated T piece. S/P recurrent right pneumothorax status post pigtail catheter removal. Currently on 28% oxygen 01/21. Appreciate pulmonology consult. continue bipap at night. - Suction secretions and Levsin as needed - Duo nebs 4 times a day and when necessary. S/p colistin nebs and Solumedrol. Metabolic Encephalopathy Parkinson's disease underlying. Appreciate neuro consult. CT head 06/18/15: - diffuse atrophy unchanged. No acute intracranial findings. - Continue cognitive efforts and pain meds. - Parkinson's medication increased by neurology. Have decreased antipsychotics to QOD dosing. will d/c antipsychotics today - continue to wean clonazepam, changed to 0.25 mg BID 01/21. Malnutrition/protein calorie - moderate Status post PEG. Concern for hematemesis 12/05. GI evaluated pt. Gastroccult was negative and hemoglobin has been stable. Tolerating TFs 01/21. - 01/14. Switch to GJ tube due to aspiration. Consulting IR to evaluate GJ tube 01/19. - Current Colace/senna for bowel regimen. - continue PPI.- Prevacid. Bilateral lower extremity Contractures Stage II DU. - Wound care team following. - Continue physical therapy. GI prophylaxis: PPI. Stool softener PRN constipation. DVT PPx: Lovenox Discharge Planning Awaiting clinical improvement. Difficult placement. Problem Qualifiers (1) Chronic respiratory failure: Qualified Code: J96.10 - Chronic respiratory failure, unspecified whether with hypoxia or hypercapnia Dory Mckeon MD Jan 24, 2016 08:39
[2016-01-24 09:01] LABS: POTASSIUM 4.5 MEQ/L (3.5-5.1)
[2016-01-24 10:22] LABS: AUTOMATED NEUTROPHIL # 10.2 TH/MM3 (1.8-7.7); BASOPHIL # 0.1 TH/MM3 (0-0.2); BASOPHIL % 0.4 % (0.0-2.0); EOSINOPHIL # 0.4 TH/MM3 (0-0.4); EOSINOPHIL % 2.9 % (0.0-4.0); HEMATOCRIT 33.6 % (39.0-51.0); HEMO FLAGS DIFF FINAL; LYMPH % 10.7 % (9.0-44.0); LYMPHOCYTE # 1.4 TH/MM3 (1.0-4.8); MEAN CORPUSCULAR HGB CONC 33.7 % (32.0-36.0); MONO % 6.5 % (0.0-8.0); NEUT % 79.5 % (16.0-70.0); PLATELET COUNT 223 TH/MM3 (150-450); RED BLOOD COUNT 4.05 MIL/MM3 (4.50-5.90); RED CELL DISTRIBUTION WIDTH 14.6 % (11.6-17.2); WHITE BLOOD COUNT 12.8 TH/MM3 (4.0-11.0)
[2016-01-24] MEDS: HYOSCYAMINE SOLN 0.125 MG/ML 15 ML BTL PO PRN (12:42)
[2016-01-24] MEDS: COLLAGENASE OINT 30 GM TUBE TOP SCH (12:42)
[2016-01-24] MEDS: SODIUM CHLORIDE 0.9% FLUSH 5 ML FLUSH IVF SCH ×2 (12:43→21:00)
[2016-01-24] MEDS: ARTIFICIAL TEARS OPTH SOLN 15 ML BTL EACH EYE SCH ×3 (12:43→17:45)
[2016-01-25] VITALS (9 sets, daily range): BP systolic 104–135; BP diastolic 70–86; PULSE 81–103; RESP 20–26; TEMP 97.1–98.8; O2SAT 95–99
[2016-01-25] MEDS: BETHANECHOL CHL 10 MG TAB PO SCH ×3 (05:58→21:11)
[2016-01-25] MEDS: FREE WATER G-TUBE SCH ×4 (05:58→17:56)
[2016-01-25] MEDS: INSULIN NovoLIN REGULAR SUPPLEMENTAL SCALE SQ SCH ×4 (05:59→17:56)
[2016-01-25] MEDS: CHLORHEXIDINE 0.12% (ORAL KIT) 15 ML CUP MT SCH ×2 (08:00→20:00)
[2016-01-25] MEDS: SODIUM CHLORIDE 0.9% FLUSH 5 ML FLUSH IVF SCH ×2 (09:00→21:06)
[2016-01-25] MEDS: ARTIFICIAL TEARS OPTH SOLN 15 ML BTL EACH EYE SCH ×3 (09:56→17:56)
[2016-01-25] MEDS: PARoxetine HCL 20 MG TAB G-TUBE SCH (09:57)
[2016-01-25] MEDS: CARBIDOPA/LEVODOPA 25 MG/100 MG TAB GT SCH ×4 (09:57→21:06)
[2016-01-25] MEDS: LANSOPRAZOLE SOLUTAB 30 MG TAB NG SCH (09:57)
[2016-01-25] MEDS: POTASSIUM CL 40 MEQ/30 ML LIQ UDC GT SCH (09:57)
[2016-01-25] MEDS: predniSONE 5 MG TAB PO SCH (09:57)
[2016-01-25] MEDS: MIDODRINE 5 MG TAB G-TUBE SCH ×2 (09:58→21:06)
[2016-01-25] MEDS: GABAPENTIN 300 MG CAP G-TUBE SCH ×2 (09:58→21:06)
[2016-01-25] MEDS: LACTOBACILLUS ACIDOPHILUS TAB PO SCH ×3 (09:58→17:56)
[2016-01-25] MEDS: clonazePAM 0.5 MG TAB PO SCH ×2 (09:58→21:06)
[2016-01-25] MEDS: RESP: ALBUTEROL 2.5 MG/3 ML NEB (PRN) NEB (12:15)
--- NOTE | 2016-01-25 13:08 | HHI.PR ---
Subjective Remarks Pt opens eyes, tries to answer when Dr. Kiser calls his name. Denies any pain Objective Vitals Vital Signs Date Time Temp Pulse Resp B/P Pulse Ox O2 Delivery O2 Flow Rate FiO2 01/25/16 12:15 98 T-piece 28 01/25/16 12:00 97.7 91 24 104/70 98 01/25/16 08:15 97.1 93 26 119/78 98 01/25/16 04:00 97.2 91 20 130/72 96 01/25/16 03:15 98 BiPAP 30 01/25/16 03:15 98 30 01/25/16 00:00 98.3 81 20 135/78 97 01/24/16 22:15 97 T-Piece 6.00 28 01/24/16 20:39 96 30 01/24/16 20:00 97.5 87 20 109/71 93 01/24/16 16:00 96.0 78 16 106/74 96 I/O 01/24/16 01/24/16 01/24/16 01/25/16 01/25/16 01/25/16 06:59 14:59 22:59 06:59 14:59 22:59 Intake Total 1080 ml 620 ml 974 ml Output Total 400 ml 0 ml 1200 ml 300 ml Balance 680 ml 620 ml -1200 ml 674 ml Tube Feeding 480 ml 420 ml 574 ml Other 600 ml 200 ml 400 ml Output Urine Total 400 ml 1200 ml 300 ml Tube Feeding Residual Discard 0 ml # Voids 1 # Bowel Movements 4 2 2 Result Diagram: 01/24/16 0952 01/24/16 0821 Imaging Last Impressions Chest X-Ray 01/19/16 0600 Signed Impressions: Service Date/Time: Tuesday, January 19, 2016 05:56 - CONCLUSION: Questionable nodular densities/patchy small consolidations seen in the left lung. Erlin Barajas MD Abdomen X-Ray 01/12/16 1628 Signed Impressions: Service Date/Time: Tuesday, January 12, 2016 17:35 - CONCLUSION: No evidence of obstruction or free air. Reyes Jewell MD Abdomen Ultrasound 12/06/15 0000 Signed Impressions: Service Date/Time: Sunday, December 06, 2015 17:42 - CONCLUSION: 1. The gallbladder is unremarkable with no evidence of cholelithiasis. 2. Simple cyst in the left kidney. 3. Mild pyelocaliectasis in the right kidney. Salazar Thurman MD Upper Extremity Ultrasound 10/13/15 0000 Signed Impressions: Service Date/Time: Tuesday, October 13, 2015 09:51 - CONCLUSION: 1. No evidence of deep venous thrombosis. John Anderson MD Renal Ultrasound 10/07/15 0000 Signed Impressions: Service Date/Time: Wednesday, October 07, 2015 18:29 - CONCLUSION: 1. No acute findings. 3.6 cm left renal cyst. Putnam catheter in bladder. Amaury Ellsworth MD Tunnelled Chest Tube Removal 08/05/15 1100 Signed Impressions: Service Date/Time: Wednesday, August 05, 2015 11:00 - CONCLUSION: Uncomplicated chest tube removal. Blaine Jackson MD Chest Tube Change 07/31/15 0000 Signed Impressions: Service Date/Time: Friday, July 31, 2015 14:34 - CONCLUSION: Uncomplicated reposition of previously placed chest tube as above. Blaine Jackson MD Chest Tube Insertion 07/30/15 0000 Signed Impressions: Service Date/Time: July 14:50 - CONCLUSION: Uncomplicated chest tube placement as above. Blaine Jackson MD Catheter Change 07/27/15 0000 Signed Impressions: Service Date/Time: Monday, July 27, 2015 14:43 - CONCLUSION: Uncomplicated gastrostomy tube exchange as above. Blaine Jackson MD Chest CT 07/11/15 0000 Signed Impressions: Service Date/Time: Saturday, July 11, 2015 09:49 - CONCLUSION: Scattered patchy densities significantly improved from previous study. Tiny anterior right basilar pneumothorax. Right-sided chest tube in good position. Néstor Matamoros MD Head CT 06/18/151902 Signed Impressions: Service Date/Time: June 19:31 - CONCLUSION: Diffuse atrophy unchanged. No acute intracranial findings. Kush Briscoe MD Abdomen/Pelvis CT 06/18/151902 Signed Impressions: Service Date/Time: June 19:36 - CONCLUSION: 1. Chronic nonspecific urinary bladder wall thickening. Bladder collapsed with Putnam catheter in place. 2. Chronic bilateral mid to lower lung zone groundglass opacity. 3. Nonobstructing left renal calculus. 4. Distended rectum. Kush Briscoe MD Objective Remarks GENERAL: Cachectic, contracted patient, chronic ill-looking, in no apparent distress. appears comfortable CARDIOVASCULAR: Regular rate and rhythm without murmurs. T piece in place. RESPIRATORY: fair air entry, no wheezing. upper airway noise noted GASTROINTESTINAL: Abdomen soft, non-tender, nondistended. PEG tube in place MUSCULOSKELETAL: Lower extremity in crossover contraction , positive pedal pulses,. NEURO: eyes open today, moves right upper extremity. Procedures 07/26- PEG replacement 07/29- right pigtail catheter placement for new pneumothorax Date of Insertion: Dec 16, 2015 A/P Problem List: (1) Sepsis due to urinary tract infection ICD Code: A41.9 Status: Resolved (2) Acute respiratory failure ICD Code: J96.00 Status: Resolved (3) Chronic respiratory failure ICD Code: J96.10 Status: Chronic (4) Parkinson disease ICD Code: G20 Status: Chronic (5) UTI (urinary tract infection) ICD Code: N39.0 Status: Acute (6) Encephalopathy ICD Code: G93.40 Status: Resolved Assessment and Plan S/P Septic shock Recurrent aspiration pneumonitis. Sputum growing Klebsiella and Pseudomonas. - Vancomycin and Levaquin d/c 01/18. Monitor. Chronic respiratory failure Chronic tracheostomy. Tolerated T piece. S/P recurrent right pneumothorax status post pigtail catheter removal. Currently on 28% oxygen 01/21. Appreciate pulmonology consult. continue bipap at night. - Suction secretions and Levsin as needed - Duo nebs 4 times a day and when necessary. S/p colistin nebs and Solumedrol. Metabolic Encephalopathy Parkinson's disease underlying. Appreciate neuro consult. CT head 06/18/15: - diffuse atrophy unchanged. No acute intracranial findings. - Continue cognitive efforts and pain meds. - Parkinson's medication increased by neurology. Have decreased antipsychotics to QOD dosing. Now off antipsychotics - continue to wean clonazepam, changed to 0.25 mg BID 01/21. Malnutrition/protein calorie - moderate Status post PEG. Concern for hematemesis 12/05. GI evaluated pt. Gastroccult was negative and hemoglobin has been stable. Tolerating TFs 01/21. - 01/14. Switch to GJ tube due to aspiration. Consulting IR to evaluate GJ tube 01/19. - Current Colace/senna for bowel regimen. - continue PPI.- Prevacid. Bilateral lower extremity Contractures Stage II DU. - Wound care team following. - Continue physical therapy. GI prophylaxis: PPI. Stool softener PRN constipation. DVT PPx: Lovenox Discharge Planning Awaiting clinical improvement. Difficult placement. Problem Qualifiers (1) Chronic respiratory failure: Qualified Code: J96.10 - Chronic respiratory failure, unspecified whether with hypoxia or hypercapnia Dory Mckeon MD Jan 25, 2016 13:08
[2016-01-25] MEDS: COLLAGENASE OINT 30 GM TUBE TOP SCH (14:30)
--- NOTE | 2016-01-25 18:37 | HHI.PR ---
Subjective Remarks Awake and remains lethargic. Responds to some questions. Breathing easy.. and 0n a T bar FIO2 30 % On tube feeds at 35 CC. No change overall. Objective Vital Signs Date Time Temp Pulse Resp B/P Pulse Ox O2 Delivery O2 Flow Rate FiO2 01/25/16 16:00 97.1 90 24 112/70 99 01/25/16 12:15 98 T-piece 28 01/25/16 12:00 97.7 91 24 104/70 98 01/25/16 08:15 97.1 93 26 119/78 98 01/25/16 07:15 T-Piece 7.00 28 01/25/16 04:00 97.2 91 20 130/72 96 01/25/16 03:15 98 BiPAP 30 01/25/16 03:15 98 30 01/25/16 00:00 98.3 81 20 135/78 97 01/24/16 22:15 97 T-Piece 6.00 28 01/24/16 20:39 96 30 01/24/16 20:00 97.5 87 20 109/71 93 I/O 01/24/16 01/24/16 01/24/16 01/25/16 01/25/16 01/25/16 06:59 14:59 22:59 06:59 14:59 22:59 Intake Total 1080 ml 620 ml 974 ml Output Total 400 ml 0 ml 1200 ml 300 ml 800 ml Balance 680 ml 620 ml -1200 ml 674 ml -800 ml Tube Feeding 480 ml 420 ml 574 ml Other 600 ml 200 ml 400 ml Output Urine Total 400 ml 1200 ml 300 ml 800 ml Tube Feeding Residual Discard 0 ml # Voids 1 # Bowel Movements 4 2 2 2 Result Diagram: 01/24/16 0952 01/24/16820 Objective Remarks This is a thin white male who is , awake with a trach tube in place.Responds weakly . HEENT: Pupils are equal and reactive to light. CHEST:Decreased breath sounds,no crackles. CARDIOVASCULAR: S1 and S2 is normal.No murmur. ABDOMEN: Soft, nondistended. BS +. He has a PEG tube in place. EXTREMITIES: Contractures.muscle wasting. NEURO: Awake and has weak extremities. Skin is dry. Assessment and Plan Assessment and Plan IMPRESSION 1. Chronic Respiratory failure. 2. Sepsis, Aspiration. Improved 3. Left basal Pneumonia 4. Tracheobronchitis 5. Parkinson's disease 6. Dementia. 7. Severe Deconditioning. Plan : 1. Continue on Bipap 5/15, FIo2 28 % at HS 2. Nebs Bid , duoneb. 3. Cont tube feeds Jevity at 40 CC 4. T Bar 28 % daytime. 5. Levsin .25 mg tid prn for Secretions 6. Cont Trach toilet and lavage. 7. Cheat X ray. 1 Darren Kiser MD Jan 25, 2016 18:37
[2016-01-25] MEDS: OLANZapine 2.5 MG TAB GT SCH (21:06)
[2016-01-26] VITALS (10 sets, daily range): BP systolic 98–118; BP diastolic 53–69; PULSE 84–110; RESP 19–26; TEMP 97.1–98.3; O2SAT 92–100
[2016-01-26] MEDS: FREE WATER G-TUBE SCH ×4 (06:00→17:39)
[2016-01-26] MEDS: INSULIN NovoLIN REGULAR SUPPLEMENTAL SCALE SQ SCH ×5 (06:00→23:57)
[2016-01-26] MEDS: BETHANECHOL CHL 10 MG TAB PO SCH ×3 (06:26→22:00)
--- NOTE | 2016-01-26 06:26 | RADRPT ---
EXAM DATE/TIME: 01/26/2016 05:33 [place] COMPARISON: CHEST SINGLE AP, January 19, 2016, 5:56. INDICATIONS : Short of breath, edema MEDICAL HISTORY : Hypertension. Diabetes mellitus type II. Gastroesophageal reflux disease. urosepsis, respiratory failure SURGICAL HISTORY : tracheostomy ENCOUNTER: Subsequent ACUITY: 4 - 6 months PAIN SCORE: Non-responsive. LOCATION: Bilateral chest FINDINGS: Patchy parenchymal opacities are again seen in both lungs, primarily interstitial and with probable b ronchiectasis of the mid and lower lungs especially on the left. These findings appear similar to per haps slightly worse in the interim. No pleural effusion. No pneumothorax. Trachea are again noted. CONCLUSION: Patchy bilateral interstitial opacities without significant change. Erlin Escobar MD on January 26, 2016 at 6:23 Board Certified Radiologist. This report was verified electronically.
[2016-01-26] MEDS: CHLORHEXIDINE 0.12% (ORAL KIT) 15 ML CUP MT SCH ×2 (08:00→20:00)
[2016-01-26 08:16] LABS: AUTOMATED NEUTROPHIL # 22.5 TH/MM3 (1.8-7.7); BASOPHIL # 0.1 TH/MM3 (0-0.2); BASOPHIL % 0.3 % (0.0-2.0); EOSINOPHIL # 0.2 TH/MM3 (0-0.4); EOSINOPHIL % 0.9 % (0.0-4.0); HEMATOCRIT 35.9 % (39.0-51.0); HEMO FLAGS DIFF FINAL; LYMPH % 4.8 % (9.0-44.0); LYMPHOCYTE # 1.2 TH/MM3 (1.0-4.8); MEAN CELL VOLUME 84.4 FL (80.0-100.0); MEAN CORPUSCULAR HGB CONC 33.2 % (32.0-36.0); MONO % 5.5 % (0.0-8.0); NEUT % 88.5 % (16.0-70.0); PLATELET COUNT 288 TH/MM3 (150-450); RED BLOOD COUNT 4.25 MIL/MM3 (4.50-5.90); RED CELL DISTRIBUTION WIDTH 14.9 % (11.6-17.2); WHITE BLOOD COUNT 25.4 TH/MM3 (4.0-11.0)
[2016-01-26 08:28] LABS: POTASSIUM 4.1 MEQ/L (3.5-5.1)
[2016-01-26] MEDS: LACTOBACILLUS ACIDOPHILUS TAB PO SCH ×3 (09:00→17:41)
[2016-01-26] MEDS: GABAPENTIN 300 MG CAP G-TUBE SCH ×2 (09:00→21:00)
[2016-01-26] MEDS: ARTIFICIAL TEARS OPTH SOLN 15 ML BTL EACH EYE SCH ×3 (09:00→17:43)
[2016-01-26] MEDS: COLLAGENASE OINT 30 GM TUBE TOP SCH (09:00)
[2016-01-26] MEDS: predniSONE 5 MG TAB PO SCH (09:00)
[2016-01-26] MEDS: SODIUM CHLORIDE 0.9% FLUSH 5 ML FLUSH IVF SCH ×2 (09:00→21:00)
[2016-01-26] MEDS: clonazePAM 0.5 MG TAB PO SCH ×2 (09:37→21:00)
[2016-01-26] MEDS: PARoxetine HCL 20 MG TAB G-TUBE SCH (09:38)
[2016-01-26] MEDS: LANSOPRAZOLE SOLUTAB 30 MG TAB NG SCH (09:38)
[2016-01-26] MEDS: MIDODRINE 5 MG TAB G-TUBE SCH ×2 (09:39→21:00)
[2016-01-26] MEDS: CARBIDOPA/LEVODOPA 25 MG/100 MG TAB GT SCH ×4 (09:39→21:00)
[2016-01-26] MEDS: POTASSIUM CL 40 MEQ/30 ML LIQ UDC GT SCH (09:40)
[2016-01-26] MEDS: ACETAMINOPHEN/HYDROcodone 325 MG/5 MG TAB PO PRN (12:41)
--- NOTE | 2016-01-26 12:53 | HHI.PR ---
Subjective Remarks Awake and Responds to some questions. Breathing OK. and 0n a T bar FIO2 30 % On tube feeds at 40 CC . No change overall. Objective Vital Signs Date Time Temp Pulse Resp B/P Pulse Ox O2 Delivery O2 Flow Rate FiO2 01/26/16 12:00 97.1 102 26 108/62 98 01/26/16 08:25 100 T-piece 5.00 28 01/26/16 08:00 97.6 110 26 118/62 97 01/26/16 05:59 98.3 84 19 109/64 96 01/26/16 04:15 99 30 01/26/16 00:52 99 30 01/26/16 00:14 98.2 84 20 100/69 95 01/25/16 22:16 98 T-piece 6.00 28 01/25/16 22:16 98 30 01/25/16 21:10 98 T-Piece 6.00 28 01/25/16 20:15 98.8 103 20 122/86 95 01/25/16 16:00 97.1 90 24 112/70 99 I/O 01/25/16 01/25/16 01/25/16 01/26/16 01/26/16 01/26/16 06:59 14:59 22:59 06:59 14:59 22:59 Intake Total 974 ml Output Total 300 ml 800 ml Balance 674 ml -800 ml Tube Feeding 574 ml Other 400 ml Output Urine Total 300 ml 800 ml # Bowel Movements 2 2 1 Result Diagram: 01/26/16 0740 01/26/16 0740 Objective Remarks This is a thin white male who is , awake with a trach tube in place.Responds weakly . HEENT: Pupils are equal and reactive to light. CHEST:Decreased breath sounds,no crackles. CARDIOVASCULAR: S1 and S2 is normal.No murmur. ABDOMEN: Soft, nondistended. BS +. He has a PEG tube in place. EXTREMITIES: Contractures.muscle wasting.Moves right hand. NEURO: Awake and has weak extremities. Skin is dry. Assessment and Plan Assessment and Plan IMPRESSION 1. Chronic Respiratory failure. 2. Sepsis, Aspiration. Improved 3. Left basal Pneumonia 4. Tracheobronchitis 5. Parkinson's disease 6. Dementia. 7. Severe Deconditioning. Plan : 1. Continue on Bipap 06/20, FIo2 28 % at HS 2. Nebs Bid , duoneb. 3. Cont tube feeds Jevity at 45 CC 4. T Bar 28 % daytime. 5. Levsin .25 mg tid prn for Secretions 6. Cont Trach toilet and lavage. 1 Darren Kiser MD Jan 26, 2016 12:53
--- NOTE | 2016-01-26 12:56 | HHI.PR ---
Subjective Remarks patient more alert and more interactive- nodded - compared to my last exam on himtolerating tube feedings at 40 cc/hr on BiPAP at hs d/w staff minimal secretions this am per staff yesterday- thick greenish sputum on suctioning Objective Vitals Vital Signs Date Time Temp Pulse Resp B/P Pulse Ox O2 Delivery O2 Flow Rate FiO2 01/26/16 12:00 97.1 102 26 108/62 98 01/26/16 08:25 100 T-piece 5.00 28 01/26/16 08:00 97.6 110 26 118/62 97 01/26/16 05:59 98.3 84 19 109/64 96 01/26/16 04:15 99 30 01/26/16 00:52 99 30 01/26/16 00:14 98.2 84 20 100/69 95 01/25/16 22:16 98 T-piece 6.00 28 01/25/16 22:16 98 30 01/25/16 21:10 98 T-Piece 6.00 28 01/25/16 20:15 98.8 103 20 122/86 95 01/25/16 16:00 97.1 90 24 112/70 99 I/O 01/25/16 01/25/16 01/25/16 01/26/16 01/26/16 01/26/16 07:00 15:00 23:00 07:00 15:00 23:00 Intake Total 974 ml Output Total 300 ml 800 ml Balance 674 ml -800 ml Tube Feeding 574 ml Other 400 ml Output Urine Total 300 ml 800 ml # Bowel Movements 2 2 1 Result Diagram: 01/26/16 0740 01/26/16 0740 Imaging Last Impressions Chest X-Ray 01/26/16 0600 Signed Impressions: Service Date/Time: Tuesday, January 26, 2016 05:33 - CONCLUSION: Patchy bilateral interstitial opacities without significant change. Erlin Escobar MD Abdomen X-Ray 01/12/16 1628 Signed Impressions: Service Date/Time: Tuesday, January 12, 2016 17:35 - CONCLUSION: No evidence of obstruction or free air. Reyes Jewell MD Abdomen Ultrasound 12/06/15 0000 Signed Impressions: Service Date/Time: Sunday, December 06, 2015 17:42 - CONCLUSION: 1. The gallbladder is unremarkable with no evidence of cholelithiasis. 2. Simple cyst in the left kidney. 3. Mild pyelocaliectasis in the right kidney. Salazar Thurman MD Upper Extremity Ultrasound 10/13/15 0000 Signed Impressions: Service Date/Time: Tuesday, October 13, 2015 09:51 - CONCLUSION: 1. No evidence of deep venous thrombosis. John Anderson MD Renal Ultrasound 10/07/15 0000 Signed Impressions: Service Date/Time: Wednesday, October 07, 2015 18:29 - CONCLUSION: 1. No acute findings. 3.6 cm left renal cyst. Valdez catheter in bladder. Amaury Ellsworth MD Tunnelled Chest Tube Removal 08/05/15 1100 Signed Impressions: Service Date/Time: Wednesday, August 05, 2015 11:00 - CONCLUSION: Uncomplicated chest tube removal. Blaine Jackson MD Chest Tube Change 07/31/15 0000 Signed Impressions: Service Date/Time: Friday, July 31, 2015 14:34 - CONCLUSION: Uncomplicated reposition of previously placed chest tube as above. Blaine Jackson MD Chest Tube Insertion 07/30/15 0000 Signed Impressions: Service Date/Time: July 14:50 - CONCLUSION: Uncomplicated chest tube placement as above. Blaine Jackson MD Catheter Change 07/27/15 0000 Signed Impressions: Service Date/Time: Monday, July 27, 2015 14:43 - CONCLUSION: Uncomplicated gastrostomy tube exchange as above. Blaine Jackson MD Chest CT 07/11/15 Signed Impressions: Service Date/Time: Saturday, July 11, 2015 09:49 - CONCLUSION: Scattered patchy densities significantly improved from previous study. Tiny anterior right basilar pneumothorax. Right-sided chest tube in good position. Néstor Matamoros MD Head CT 06/18/151902 Signed Impressions: Service Date/Time: June 19:31 - CONCLUSION: Diffuse atrophy unchanged. No acute intracranial findings. Kush Briscoe MD Abdomen/Pelvis CT 06/18/151902 Signed Impressions: Service Date/Time: June 19:36 - CONCLUSION: 1. Chronic nonspecific urinary bladder wall thickening. Bladder collapsed with Valdez catheter in place. 2. Chronic bilateral mid to lower lung zone groundglass opacity. 3. Nonobstructing left renal calculus. 4. Distended rectum. Kush Briscoe MD Objective Remarks pupils reactive, anicteric, trach in place - in t piece decrease breath sounds, no rales regular rhythm- good bowel sounds, PEG in place extremities - no edema both upper extremities- moves spontaneously lower extremities-flexion contractures sacral area - stage IV- good granulation, no drainage, edges clean valdez catheter in place- draining clear urine last changed 01/15- we will change today Procedures 07/26- PEG replacement 07/29- right pigtail catheter placement for new pneumothorax Valdez insert reason: Prolonged Immobilization Date of Insertion: Dec 16, 2015 A/P Problem List: (1) Sepsis due to urinary tract infection ICD Code: A41.9 Status: Resolved (2) Acute respiratory failure ICD Code: J96.00 Status: Resolved (3) Chronic respiratory failure ICD Code: J96.10 Status: Chronic (4) Parkinson disease ICD Code: G20 Status: Chronic (5) UTI (urinary tract infection) ICD Code: N39.0 Status: Acute (6) Encephalopathy ICD Code: G93.40 Status: Resolved Assessment and Plan S/P Septic shock Recurrent aspiration pneumonitis. Sputum growing Klebsiella and Pseudomonas. - Vancomycin and Levaquin d/c 01/18. Monitor. Leukocytosis- afebrile- WBC up to 25,000 today -clinically copious secretions requiring suctioning thick greenish sputum -sputum specimen sent, urine specimen sent - CXR stable Chronic respiratory failure Chronic tracheostomy. Tolerated T piece. S/P recurrent right pneumothorax status post pigtail catheter removal. Currently on 28% oxygen 01/21. Appreciate pulmonology consult. continue bipap at night. - Suction secretions and Levsin as needed - on po steroids - Duo nebs 4 times a day and when necessary. S/p colistin nebs and Solumedrol. Metabolic Encephalopathy Parkinson's disease underlying. Appreciate neuro consult. CT head 06/18/15: - diffuse atrophy unchanged. No acute intracranial findings. - Continue cognitive efforts and pain meds. - Parkinson's medication increased by neurology. Have decreased antipsychotics to QOD dosing. Now off antipsychotics - continue to wean clonazepam, changed to 0.25 mg BID 01/21. Malnutrition/protein calorie - moderate Status post PEG. Concern for hematemesis 12/05. GI evaluated pt. Gastroccult was negative and hemoglobin has been stable. Tolerating TFs 01/21. - 01/14. Switch to GJ tube due to aspiration. Consulting IR to evaluate GJ tube 01/19. - Current Colace/senna for bowel regimen. - continue PPI.- Prevacid. Bilateral lower extremity Contractures Stage II DU. - Wound care team following. - Continue physical therapy. GI prophylaxis: PPI. Stool softener PRN constipation. DVT PPx: Lovenox Discharge Planning Awaiting clinical improvement. difficult placement Problem Qualifiers (1) Chronic respiratory failure: Qualified Code: J96.10 - Chronic respiratory failure, unspecified whether with hypoxia or hypercapnia Claire Queen MD Jan 26, 2016 12:56 Claire Queen MD Jan 26, 2016 12:56
[2016-01-26 19:40] LABS: BLOOD, URINE SMALL (NEG); CALCIUM OXALATE CRYSTALS,URINE OCC /hpf; COMMENT (UR) CATH-CULTURE IND; CULTURE IF INDICATED CATH CULTURE IND; GLUCOSE,URINE NEG (NEG); KETONE, URINE NEG (NEG); MUCUS URINE FEW /lpf (OCC); NITRITE,URINE NEG (NEG); URINE COLOR YELLOW (YELLW/STRAW)
[2016-01-27] VITALS (9 sets, daily range): BP systolic 95–138; BP diastolic 60–84; PULSE 78–114; RESP 18–23; TEMP 97.1–98.9; O2SAT 94–96
[2016-01-27] MEDS: INSULIN NovoLIN REGULAR SUPPLEMENTAL SCALE SQ SCH ×3 (06:00→18:00)
[2016-01-27] MEDS: BETHANECHOL CHL 10 MG TAB PO SCH ×3 (06:00→22:29)
[2016-01-27] MEDS: FREE WATER G-TUBE SCH ×4 (06:00→18:00)
[2016-01-27] MEDS: CHLORHEXIDINE 0.12% (ORAL KIT) 15 ML CUP MT SCH ×2 (08:00→20:00)
[2016-01-27] MEDS: MIDODRINE 5 MG TAB G-TUBE SCH ×2 (09:00→22:30)
[2016-01-27] MEDS: SODIUM CHLORIDE 0.9% FLUSH 5 ML FLUSH IVF SCH ×2 (09:00→22:27)
[2016-01-27] MEDS: ARTIFICIAL TEARS OPTH SOLN 15 ML BTL EACH EYE SCH ×3 (09:00→18:00)
[2016-01-27] MEDS: GABAPENTIN 300 MG CAP G-TUBE SCH ×2 (09:00→22:28)
[2016-01-27] MEDS: PARoxetine HCL 20 MG TAB G-TUBE SCH (09:00)
[2016-01-27] MEDS: LACTOBACILLUS ACIDOPHILUS TAB PO SCH ×3 (09:50→18:00)
[2016-01-27] MEDS: predniSONE 5 MG TAB PO SCH (09:50)
[2016-01-27] MEDS: POTASSIUM CL 40 MEQ/30 ML LIQ UDC GT SCH (09:50)
[2016-01-27] MEDS: LANSOPRAZOLE SOLUTAB 30 MG TAB NG SCH (09:50)
[2016-01-27] MEDS: CARBIDOPA/LEVODOPA 25 MG/100 MG TAB GT SCH ×4 (09:50→22:30)
[2016-01-27] MEDS: clonazePAM 0.5 MG TAB PO SCH ×2 (09:50→22:30)
[2016-01-27] MEDS: COLLAGENASE OINT 30 GM TUBE TOP SCH (10:37)
[2016-01-27] MEDS: LORazepam 2 MG/ML VIAL IVP PRN (11:36)
--- NOTE | 2016-01-27 13:18 | HHI.PR ---
Subjective Remarks GJ tube clogged again Objective Vitals Vital Signs Date Time Temp Pulse Resp B/P Pulse Ox O2 Delivery O2 Flow Rate FiO2 01/27/16 12:00 98.4 114 20 137/73 95 01/27/16 08:18 97.1 79 18 120/84 94 01/27/16 07:45 94 28 6.00 01/27/16 06:50 98.7 80 22 100/60 95 01/27/16 03:11 95 30 01/27/16 03:11 95 BiPAP 30 01/27/16 00:13 98.9 78 22 95/64 94 01/26/16 23:50 92 30 01/26/16 21:00 T-Piece 7.00 28 01/26/16 20:07 97.8 84 21 98/53 95 01/26/16 16:00 97.4 100 24 104/64 97 I/O 01/26/16 01/26/16 01/26/16 01/27/16 01/27/16 01/27/16 06:59 14:59 22:59 06:59 14:59 22:59 Output Total 750 ml 450 ml 150 ml Balance -750 ml -450 ml -150 ml Output Urine Total 750 ml 450 ml 150 ml # Bowel Movements 1 1 1 Result Diagram: 01/26/16 0740 01/26/16 0740 Objective Remarks pupils reactive, anicteric, trach in place - in t piece decrease breath sounds, no rales regular rhythm- good bowel sounds, PEG in place extremities - no edema both upper extremities- moves spontaneously lower extremities-flexion contractures sacral area - stage IV- good granulation, no drainage, edges clean valdez catheter in place- draining clear urine last changed 01/25- we will change today Procedures 07/26- PEG replacement 07/29- right pigtail catheter placement for new pneumothorax Date of Insertion: Dec 16, 2015 A/P Problem List: (1) Sepsis due to urinary tract infection ICD Code: A41.9 Status: Resolved (2) Acute respiratory failure ICD Code: J96.00 Status: Resolved (3) Chronic respiratory failure ICD Code: J96.10 Status: Chronic (4) Parkinson disease ICD Code: G20 Status: Chronic (5) UTI (urinary tract infection) ICD Code: N39.0 Status: Acute (6) Encephalopathy ICD Code: G93.40 Status: Resolved Assessment and Plan S/P Septic shock Recurrent aspiration pneumonitis. Klebsiella and Pseudomonas.- previously new sputum growing gram negative rods Leukocytosis- afebrile- WBC up to 25,000 (on po prednisone tapered down to 2.5 mg daily) Persistent pyuria- repeat C and s pending (specimen sent from new valdez- changed 01/25) - S/P Zosyn. S/P Vancomycin and Levaquin course. CXR unchanged -clinically copious secretions requiring suctioning thick greenish sputum -sputum specimen sent- growing gram negative rods - final C and s pending , urine C and s pending -will reconsult ID for recommendations- need to treat - ?antibiotics Chronic respiratory failure Chronic tracheostomy. Tolerated T piece. S/P recurrent right pneumothorax status post pigtail catheter removal. Currently on 28% oxygen 01/21. Appreciate pulmonology consult. continue bipap at night. - Suction secretions and Levsin as needed - on po steroids- Prednisone 2.5 mg po daily - Duo nebs 4 times a day and when necessary. S/p colistin nebs and Solumedrol. Metabolic Encephalopathy Parkinson's disease underlying. Appreciate neuro consult. CT head 06/18/15: - diffuse atrophy unchanged. No acute intracranial findings. - Continue cognitive efforts and pain meds. - Parkinson's medication increased by neurology. Have decreased antipsychotics to QOD dosing. Now off antipsychotics - continue to wean clonazepam, changed to 0.25 mg BID 01/21. Malnutrition/protein calorie - moderate Status post PEG. Concern for hematemesis 12/05. GI evaluated pt. Gastroccult was negative and hemoglobin has been stable. Tolerating TFs 01/21. - 01/14. Switch to GJ tube due to aspiration. Consulting IR to evaluate GJ tube 01/19. - Current Colace/senna for bowel regimen. - continue PPI.- Prevacid. Bilateral lower extremity Contractures Stage II DU. - Wound care team following. - Continue physical therapy. - turn q 2 hours GJ tube clogged again 01/26 - IR consult- for evaluation GI prophylaxis: PPI. Stool softener PRN constipation. DVT PPx: Lovenox Discharge Planning difficult placement Problem Qualifiers (1) Chronic respiratory failure: Qualified Code: J96.10 - Chronic respiratory failure, unspecified whether with hypoxia or hypercapnia Claire Queen MD Jan 27, 2016 13:18
[2016-01-27] MEDS ORDERED: fentaNYL CITRATE 250 MCG/5 ML AMP ONE (15:43)
[2016-01-27] MEDS ORDERED: IOHEXOL 350 MG/ML 50 ML BTL (for RAD DIAG) G-TUBE ONE (16:11)
--- NOTE | 2016-01-27 16:11 | PD.RAD ---
Post Procedure Progress Note Pre Procedure Diagnosis: (1) Feeding tube obstruction Post Procedure Diagnosis: (1) Feeding tube obstruction Procedure Date: Jan 27, 2016 Supervising Radiologist: Blaine Jackson Anesthesia: Local, Analgesia Plan of Activity Patient to Unit: Nursing Unit Patient Condition: Poor Additional Comments: Transgastric J tube replaced without difficulty. New tube in good position OK for use See PACS Report for procedural detail/treatment Blaine Jackson MD Jan 27, 2016 16:11
--- NOTE | 2016-01-27 18:12 | HHI.PR ---
Subjective Remarks Awake and Responds to some questions. Breathing OK. and 0n a T bar FIO2 30 % On tube feeds at 40 CC . No change overall. PEG was blocked and now has a new one.WBC is 25.4 Objective Vital Signs Date Time Temp Pulse Resp B/P Pulse Ox O2 Delivery O2 Flow Rate FiO2 01/27/16 16:00 97.4 80 20 122/75 96 01/27/16 12:00 98.4 114 20 137/73 95 01/27/16 08:18 97.1 79 18 120/84 94 01/27/16 07:45 94 28 6.00 01/27/16 06:50 98.7 80 22 100/60 95 01/27/16 03:11 95 30 01/27/16 03:11 95 BiPAP 30 01/27/16 00:13 98.9 78 22 95/64 94 01/26/16 23:50 92 30 01/26/16 21:00 T-Piece 7.00 28 01/26/16 20:07 97.8 84 21 98/53 95 I/O 01/26/16 01/26/16 01/26/16 01/27/16 01/27/16 01/27/16 07:00 15:00 23:00 07:00 15:00 23:00 Output Total 750 ml 450 ml 150 ml Balance -750 ml -450 ml -150 ml Output Urine Total 750 ml 450 ml 150 ml # Bowel Movements 1 1 1 Result Diagram: 01/26/16 0740 01/26/16 0740 Objective Remarks This is a thin white male who is , awake with a trach tube in place.Responds weakly . HEENT: Pupils are equal and reactive to light. CHEST:Decreased breath sounds,no crackles. CARDIOVASCULAR: S1 and S2 is normal.No murmur. ABDOMEN: Soft, nondistended. BS +. He has a PEG tube in place. EXTREMITIES: Contractures.muscle wasting. Moves right hand. NEURO: Awake and has weak extremities. Skin is cool. Assessment and Plan Assessment and Plan IMPRESSION 1. Chronic Respiratory failure. 2. Sepsis, Aspiration. Improved 3. Left basal Pneumonia 4. Tracheobronchitis 5. Parkinson's disease 6. Dementia. 7. Severe Deconditioning. Plan : 1. Continue on Bipap 06/20, FIo2 28 % at HS 2. Nebs Bid , duoneb. 3. Cont tube feeds Jevity at 45 CC 4. T Bar 28 % daytime. 5. Levsin .25 mg tid prn for Secretions 6. Cont Trach toilet and lavage. 7. BMP ,CBC in am. 1 Darren Kiser MD Jan 27, 2016 18:12
[2016-01-27] MEDS: HYOSCYAMINE SOLN 0.125 MG/ML 15 ML BTL PO PRN (21:00)
[2016-01-27] MEDS: OLANZapine 2.5 MG TAB GT SCH (22:28)
[2016-01-27] MEDS: ENOXAPARIN SODIUM 40 MG/0.4 ML SYRINGE SQ SCH (22:28)
[2016-01-27] MEDS: ACETAMINOPHEN/HYDROcodone 325 MG/5 MG TAB PO PRN (22:28)
[2016-01-28] VITALS (11 sets, daily range): BP systolic 107–134; BP diastolic 68–91; PULSE 69–100; RESP 18–24; TEMP 96.4–98.3; O2SAT 94–100
[2016-01-28 02:03] LABS: C. DIFF EPI 027 PRESUMPTIVE POSITIVE (NEGATIVE)
[2016-01-28 02:07] LABS: C. DIFF TOXIN PCR POSITIVE (NEGATIVE)
[2016-01-28] MEDS: HYOSCYAMINE SOLN 0.125 MG/ML 15 ML BTL PO PRN ×3 (03:00→22:12)
[2016-01-28] MEDS: FREE WATER G-TUBE SCH ×4 (06:00→17:24)
[2016-01-28] MEDS: INSULIN NovoLIN REGULAR SUPPLEMENTAL SCALE SQ SCH ×4 (06:00→18:00)
[2016-01-28] MEDS: BETHANECHOL CHL 10 MG TAB PO SCH ×3 (06:04→22:11)
[2016-01-28 06:16] LABS: BASOPHIL # 0.1 TH/MM3 (0-0.2); EOSINOPHIL # 0.7 TH/MM3 (0-0.4); EOSINOPHIL % 5.5 % (0.0-4.0); HEMATOCRIT 35.7 % (39.0-51.0); HEMO FLAGS DIFF FINAL; LYMPH % 18.2 % (9.0-44.0); LYMPHOCYTE # 2.4 TH/MM3 (1.0-4.8); MEAN CELL VOLUME 83.5 FL (80.0-100.0); MEAN CORPUSCULAR HEMOGLOBIN 27.3 PG (27.0-34.0); MEAN CORPUSCULAR HGB CONC 32.7 % (32.0-36.0); MONO % 7.7 % (0.0-8.0); NEUT % 67.6 % (16.0-70.0); PLATELET COUNT 266 TH/MM3 (150-450); RED BLOOD COUNT 4.27 MIL/MM3 (4.50-5.90); RED CELL DISTRIBUTION WIDTH 14.7 % (11.6-17.2); WHITE BLOOD COUNT 13.2 TH/MM3 (4.0-11.0)
[2016-01-28 06:46] LABS: ALT (GPT) 12 U/L (12-78); ANION GAP 6 MEQ/L (5-15); AST (GOT) 22 U/L (15-37); BICARBONATE 28.9 MEQ/L (21.0-32.0); BLOOD UREA NITROGEN 20 MG/DL (7-18); CHLORIDE 100 MEQ/L (98-107); GLOMERULAR FILTRATION RATE 156 ML/MIN (>89); POTASSIUM 4.4 MEQ/L (3.5-5.1); SODIUM (NA) 135 MEQ/L (136-145)
[2016-01-28 06:47] LABS: ALKALINE PHOSPHATASE 69 U/L (45-117); TOTAL BILIRUBIN ADULT 0.3 MG/DL (0.2-1.0)
[2016-01-28] MEDS: SODIUM CHLORIDE 0.9% FLUSH 5 ML FLUSH IVF SCH ×2 (09:00→22:11)
[2016-01-28] MEDS: COLLAGENASE OINT 30 GM TUBE TOP SCH (09:00)
[2016-01-28] MEDS: LACTOBACILLUS ACIDOPHILUS TAB PO SCH ×3 (09:54→17:23)
[2016-01-28] MEDS: GABAPENTIN 300 MG CAP G-TUBE SCH ×2 (09:54→22:10)
[2016-01-28] MEDS: clonazePAM 0.5 MG TAB PO SCH ×2 (09:54→22:11)
[2016-01-28] MEDS: predniSONE 5 MG TAB PO SCH (09:55)
[2016-01-28] MEDS: CARBIDOPA/LEVODOPA 25 MG/100 MG TAB GT SCH ×4 (09:55→22:10)
[2016-01-28] MEDS: LANSOPRAZOLE SOLUTAB 30 MG TAB NG SCH (09:55)
[2016-01-28] MEDS: MIDODRINE 5 MG TAB G-TUBE SCH ×2 (09:55→22:10)
[2016-01-28] MEDS: PARoxetine HCL 20 MG TAB G-TUBE SCH (09:55)
[2016-01-28] MEDS: POTASSIUM CL 40 MEQ/30 ML LIQ UDC GT SCH (09:56)
[2016-01-28] MEDS: ARTIFICIAL TEARS OPTH SOLN 15 ML BTL EACH EYE SCH ×3 (09:56→18:00)
[2016-01-28] MEDS: CHLORHEXIDINE 0.12% (ORAL KIT) 15 ML CUP MT SCH ×2 (11:22→20:00)
--- NOTE | 2016-01-28 11:50 | RADRPT ---
EXAM DATE/TIME: 01/27/2016 15:30 [place] COMPARISON: GASTROSTOMY TUBE CONVERSION TO GASTRO-JEJUNOSTOMY TUBE, January 15, 2016, 12:28. INDICATIONS : Patient with history of encephalopathy in need of GJ tube exchange. MEDICAL HISTORY : HTN, Diabetes, HLD, CAD, MRSA, C-Diff, Parkinsons disease, Pneumonia, GERD SURGICAL HISTORY : Trach, Left hip fx, PEG tube placement ENCOUNTER: Subsequent ACUITY: 7 - 11 months PAIN SCORE: FLUORO TIME: 8.2 minutes SEDATION TIME: 30 minutes CONTRAST: 15 cc Omnipaque (iohexol) 350 MEDICATION(S): 1.) 100 mcg fentanyl (Sublimaze) IV DEVICE(S): 1.) 22 [place] Transgastric tube PROCEDURE : 1. Fluoroscopically guided gastrojejunostomy tube exchange. 2. Conscious sedation with continuous EKG and oximetry monitoring. The patient had a previously placed transgastric J-tube. This was clogged. The patient is noncommunic ative. This was felt to be consistent with continuation of care and the patient has a previously plac ed feeding tube. The site was prepped in sterile fashion. Full sterile technique was used, includin g cap, mask, sterile gloves and gown and a large sterile sheet. Hand hygiene and 2% chlorhexidine an d/or betadine/alcohol prep was utilized per protocol for cutaneous antisepsis. With fluoroscopic guidance a guidewire was passed through the previous gastrojejunostomy tube and a f resh tube was placed over the guidewire. The balloon was inflated with appropriate volume of saline. Injection of positive contrast demonstrates good position of the gastric and jejunal lumens of the tube. Conscious sedation was performed with the prescribed dosages and duration as above. The patient lynsey ated the procedure well and there were no complications. EKG and oximetry remained stable throughout the procedure. The patient was sent to post anesthesia recovery in stable condition. CONCLUSION: Uncomplicated gastrojejunostomy tube exchange as above. Blaine Jackson MD on January 28, 2016 at 11:47 Board Certified Radiologist. This report was verified electronically.
--- NOTE | 2016-01-28 13:08 | HHI.PR ---
Subjective Remarks Awake and Responds to some questions. Breathing well. and 0n a T bar FIO2 30 % .On Bipap at HS. On tube feeds at 40 CC . No change overall. .WBC is 13.2 Objective Vital Signs Date Time Temp Pulse Resp B/P Pulse Ox O2 Delivery O2 Flow Rate FiO2 01/28/16 12:47 100 T-Piece 6.00 28 01/28/16 12:16 96.4 69 22 134/68 100 01/28/16 09:46 95 T-piece 5.00 28 01/28/16 08:09 97.9 84 22 132/74 98 01/28/16 06:15 95 25 01/28/16 05:30 97.0 89 24 118/69 96 01/28/16 01:30 94 25 01/28/16 00:00 98.3 88 24 131/91 94 01/27/16 23:56 19 01/27/16 21:55 95 25 01/27/16 21:55 95 BiPAP 25 01/27/16 21:30 97.1 89 23 138/66 96 01/27/16 21:00 98 T-Piece 6.00 28 01/27/16 16:00 97.4 80 20 122/75 96 I/O 01/27/16 01/27/16 01/27/16 01/28/16 01/28/16 01/28/16 07:00 15:00 23:00 07:00 15:00 23:00 Intake Total 25 ml 0 ml Output Total 150 ml 200 ml 350 ml Balance -150 ml -175 ml -350 ml Intake Oral 0 ml 0 ml Tube Irrigant 25 ml Output Urine Total 150 ml 200 ml 350 ml # Bowel Movements 1 0 0 Result Diagram: 01/28/16 0603 01/28/16 0603 Objective Remarks This is a thin white male who is , awake with a trach tube in place.Responds weakly . HEENT: Pupils are equal and reactive to light. CHEST:Decreased breath sounds,no crackles.Occ wheeze. CARDIOVASCULAR: S1 and S2 is normal.No murmur. ABDOMEN: Soft, nondistended. BS +. He has a PEG tube in place. EXTREMITIES: Contractures.muscle wasting. Moves right hand. NEURO: Awake and has weak extremities. Skin is cool. Assessment and Plan Assessment and Plan IMPRESSION 1. Chronic Respiratory failure. 2. Sepsis, Aspiration. Improved 3. Left basal Pneumonia 4. Tracheobronchitis 5. Parkinson's disease 6. Dementia. 7. Severe Deconditioning. Plan : 1. Continue on Bipap 06/20, FIo2 28 % at HS 2. Nebs Bid , duoneb. 3. Cont tube feeds Jevity at 45 CC 4. T Bar 28 % daytime. 5. Levsin .25 mg tid prn for Secretions 6. Cont Trach toilet and lavage. 1 Darren Kiser MD Jan 28, 2016 13:08
--- NOTE | 2016-01-28 14:44 | HHI.IDPN ---
Subjective Subjective Remarks Patient known to me. Notes reviewed Temps ok WBC was up at 25 but improved without antibiotics. Patient has vomiting episodes off and on ? microaspiration. On BIPAP CXR with new infiltrates BP good Antibiotics Zosyn Lines Peripheral IV with no e/o infection Past Medical History reviewed Allergies: Coded Allergies: *MDRO Multi-Drug Resistant Organism (Verified Adverse Reaction, Unknown, ESBL, carbapenem resistant Pseudomonas, 01/13/16) ESBL E. coli (urine) - 02/19/2015; ESBL K. pneumoniae (sputum-06/18/15, 08/03/15, 09/20/15,10/12/15, 11/27/15, 12/26/15, 01/09/16), (urine-08/03/15 & 11/27/15), MRSA PCR POSITIVE - 03/20/2015 MDR-Pseudomonas (sputum)- 08/18/15, 09/20/15, 10/2015 (Carbapenem resistant) Objective . Vital Signs Date Time Temp Pulse Resp B/P Pulse Ox O2 Delivery O2 Flow Rate FiO2 01/28/16 12:47 100 T-Piece 6.00 28 01/28/16 12:16 96.4 69 22 134/68 100 01/28/16 09:46 95 T-piece 5.00 28 01/28/16 08:09 97.9 84 22 132/74 98 01/28/16 06:15 95 25 01/28/16 05:30 97.0 89 24 118/69 96 01/28/16 01:30 94 25 01/28/16 00:00 98.3 88 24 131/91 94 01/27/16 23:56 19 01/27/16 21:55 95 25 01/27/16 21:55 95 BiPAP 25 01/27/16 21:30 97.1 89 23 138/66 96 01/27/16 21:00 98 T-Piece 6.00 28 01/27/16 16:00 97.4 80 20 122/75 96 01/27/16 01/27/16 01/28/16 15:00 23:00 07:00 Intake Total 25 ml 0 ml Output Total 200 ml 350 ml Balance -175 ml -350 ml Intake Oral 0 ml 0 ml Tube Irrigant 25 ml Output Urine Total 200 ml 350 ml # Bowel Movements 0 0 . Laboratory Tests Test 01/28/16 06:03 White Blood Count 13.2 TH/MM3 Red Blood Count 4.27 MIL/MM3 Hemoglobin 11.7 GM/DL Hematocrit 35.7 % Mean Corpuscular Volume 83.5 FL Mean Corpuscular Hemoglobin 27.3 PG Mean Corpuscular Hemoglobin 32.7 % Concent Red Cell Distribution Width 14.7 % Platelet Count 266 TH/MM3 Mean Platelet Volume 9.5 FL Neutrophils (%) (Auto) 67.6 % Lymphocytes (%) (Auto) 18.2 % Monocytes (%) (Auto) 7.7 % Eosinophils (%) (Auto) 5.5 % Basophils (%) (Auto) 1.0 % Neutrophils # (Auto) 9.0 TH/MM3 Lymphocytes # (Auto) 2.4 TH/MM3 Monocytes # (Auto) 1.0 TH/MM3 Eosinophils # (Auto) 0.7 TH/MM3 Basophils # (Auto) 0.1 TH/MM3 CBC Comment DIFF FINAL Differential Comment Laboratory Tests Test 01/28/16 06:03 Sodium Level 135 MEQ/L Potassium Level 4.4 MEQ/L Chloride Level 100 MEQ/L Carbon Dioxide Level 28.9 MEQ/L Anion Gap 6 MEQ/L Blood Urea Nitrogen 20 MG/DL Creatinine 0.55 MG/DL Estimat Glomerular Filtration 156 ML/MIN Rate Random Glucose 89 MG/DL Calcium Level 9.2 MG/DL Total Bilirubin 0.3 MG/DL Aspartate Amino Transf 22 U/L (AST/SGOT) Alanine Aminotransferase 12 U/L (ALT/SGPT) Alkaline Phosphatase 69 U/L Total Protein 7.1 GM/DL Albumin 2.9 GM/DL Microbiology Date/Time Procedure Status Source Growth 01/26/16 13:50 Gram Stain - Final Complete Sputum Endotracheal 01/26/16 13:50 Sputum Culture - Final Complete Pseudomonas Aeruginosa 01/26/16 13:50 Urine Culture - Final Complete Urine Clean Catch <10,000 CFU/ML YEAST Imaging Abdomen X-Ray 12/07/15 0600 Signed Impressions: Service Date/Time: Monday, December 07, 2015 03:40 - CONCLUSION: No dilated loops of small or large bowel. Tai Jaquez MD Chest X-Ray 12/07/15 0000 Signed Impressions: Service Date/Time: Monday, December 07, 2015 03:34 - CONCLUSION: Right lung is clear. Slight improvement of interstitial infiltrates left mid and lower lung. Tai Jaquez MD Abdomen X-Ray 12/06/15 0000 Signed Impressions: Service Date/Time: Sunday, December 06, 2015 08:05 - CONCLUSION: No acute disease. Erlin Barajas MD Abdomen Ultrasound 12/06/15 0000 Signed Impressions: Service Date/Time: Sunday, December 06, 2015 17:42 - CONCLUSION: 1. The gallbladder is unremarkable with no evidence of cholelithiasis. 2. Simple cyst in the left kidney. 3. Mild pyelocaliectasis in the right kidney. Salazar Thurman MD Chest X-Ray 12/04/15 0600 Signed Impressions: Service Date/Time: Friday, December 04, 2015 03:50 - CONCLUSION: Interstitial densities in the right lung. Néstor Matamoros MD Chest X-Ray 11/28/15 0000 Signed Impressions: Service Date/Time: Saturday, November 28, 2015 00:21 - CONCLUSION: No acute cardiopulmonary disease. Eugene Schmid MD Abdomen X-Ray 11/26/15 0000 Signed Impressions: Service Date/Time: November 12:34 - CONCLUSION: 1. Nonobstructive bowel gas pattern. 2. Stable position of gastrostomy tube. Multiple surgical screws secure the proximal left femur. 3. No obvious pneumoperitoneum on the single projection provided. Scott Goode MD Upper Extremity Ultrasound 10/13/15 0000 Signed Impressions: Service Date/Time: Tuesday, October 13, 2015 09:51 - CONCLUSION: 1. No evidence of deep venous thrombosis. John Anderson MD Renal Ultrasound 10/07/15 0000 Signed Impressions: Service Date/Time: Wednesday, October 07, 2015 18:29 - CONCLUSION: 1. No acute findings. 3.6 cm left renal cyst. Valdez catheter in bladder. Amaury lElsworth MD Tunnelled Chest Tube Removal 08/05/15 1100 Signed Impressions: Service Date/Time: Wednesday, August 05, 2015 11:00 - CONCLUSION: Uncomplicated chest tube removal. Blaine Jackson MD Chest Tube Change 07/31/15 0000 Signed Impressions: Service Date/Time: Friday, July 31, 2015 14:34 - CONCLUSION: Uncomplicated reposition of previously placed chest tube as above. Blaine Jackson MD Chest Tube Insertion 07/30/15 0000 Signed Impressions: Service Date/Time: July 14:50 - CONCLUSION: Uncomplicated chest tube placement as above. Blaine Jackson MD Catheter Change 07/27/15 0000 Signed Impressions: Service Date/Time: Monday, July 27, 2015 14:43 - CONCLUSION: Uncomplicated gastrostomy tube exchange as above. Blaine Jackson MD Chest CT 07/11/15 Signed Impressions: Service Date/Time: Saturday, July 11, 2015 09:49 - CONCLUSION: Scattered patchy densities significantly improved from previous study. Tiny anterior right basilar pneumothorax. Right-sided chest tube in good position. Néstor Matamoros MD Head CT 06/18/151902 Signed Impressions: Service Date/Time: , June 18, 2015 19:31 - CONCLUSION: Diffuse atrophy unchanged. No acute intracranial findings. Kush Briscoe MD Abdomen/Pelvis CT 06/18/151902 Signed Impressions: Service Date/Time: June 19:36 - CONCLUSION: 1. Chronic nonspecific urinary bladder wall thickening. Bladder collapsed with Valdez catheter in place. 2. Chronic bilateral mid to lower lung zone groundglass opacity. 3. Nonobstructing left renal calculus. 4. Distended rectum. Kush Briscoe MD Physical Exam GENERAL: No interaction, dyspneic. SKIN: Cool and moist. No generalized rash. HEENT: [place] conjunctivae, no icterus, moist mucosa. NECK: Trach site looks ok. Neck is supple RESPIRATORY: Coarse BS razia, with few rhonchi GASTROINTESTINAL: Abdomen soft, not distended. No guarding. PEG site looks okay. MUSCULOSKELETAL: No cyanosis No pedal edema. Contracted all 4 extremities. NEUROLOGICAL: Eyes open, Extremities contracted Peripheral IV line sites with no evidence of infection. ; Valdez in place, urine looks clear Assessment & Plan Remarks IMPRESSION Respiratory distress with new infiltrates on CXR - ?New PNA Sepsis/SIRS related to aspiration PNA?HCAP. Preceding events seem to be vomiting , ?aspiration, CXR now with some densities on R - C/S with PSAE and Kleb ESBL+ - S/P Rx History of PSAE ESBL cath associated UTI. S/P Rx Leukocytosis, reactive due to current problem Previous C diff (+), no treated, improved - has had freq BM reported - will repeat if persistent and liquid Chronic respiratory failure on trach PSAE and ESBL Kleb in sputum in recent past. Chronic encephalopathy with underlying diagnosis of advanced dementia as well as advanced Parkinson's disease. Status post trach Status post gastrostomy tube with no evidence of infection. Stage II sacral decubitus ulcer present on admission. Intermittent vomiting Recurrent aspiration Recommendations CXR clear. IV lines ok. UA: cele small colonies. Valdez changed on Jan 25. Secretions small, cxr with chronic infiltrates. Diflucan for 5 days. Sputum cx: likely colonized. Not much secretions. WBC trending down since valdez changed without antibiotics. Will sign off please call back if any change in clinical condition or questions. Trina Moss MD Jan 28, 2016 14:44
--- NOTE | 2016-01-28 15:10 | HHI.PR ---
Subjective Remarks T down, WBC down requires frequent suctioning- secretions whitish today Objective Vitals Vital Signs Date Time Temp Pulse Resp B/P Pulse Ox O2 Delivery O2 Flow Rate FiO2 01/28/16 12:47 100 T-Piece 6.00 28 01/28/16 12:16 96.4 69 22 134/68 100 01/28/16 09:46 95 T-piece 5.00 28 01/28/16 08:09 97.9 84 22 132/74 98 01/28/16 06:15 95 25 01/28/16 05:30 97.0 89 24 118/69 96 01/28/16 01:30 94 25 01/28/16 00:00 98.3 88 24 131/91 94 01/27/16 23:56 19 01/27/16 21:55 95 25 01/27/16 21:55 95 BiPAP 25 01/27/16 21:30 97.1 89 23 138/66 96 01/27/16 21:00 98 T-Piece 6.00 28 01/27/16 16:00 97.4 80 20 122/75 96 I/O 01/27/16 01/27/16 01/27/16 01/28/16 01/28/16 01/28/16 06:59 14:59 22:59 06:59 14:59 22:59 Intake Total 25 ml 0 ml 848 ml Output Total 150 ml 200 ml 350 ml Balance -150 ml -175 ml -350 ml 848 ml Intake Oral 0 ml 0 ml Tube Feeding 848 ml Tube Irrigant 25 ml Output Urine Total 150 ml 200 ml 350 ml # Bowel Movements 1 0 0 Result Diagram: 01/28/16 0603 01/28/16 0603 Imaging Last Impressions Tube Change 01/27/16 0000 Signed Impressions: Service Date/Time: Wednesday, January 27, 2016 15:30 - CONCLUSION: Uncomplicated gastrojejunostomy tube exchange as above. Blaine Jackson MD Chest X-Ray 01/26/16 0600 Signed Impressions: Service Date/Time: Tuesday, January 26, 2016 05:33 - CONCLUSION: Patchy bilateral interstitial opacities without significant change. Erlin Escobar MD Abdomen X-Ray 01/12/16 1628 Signed Impressions: Service Date/Time: Tuesday, January 12, 2016 17:35 - CONCLUSION: No evidence of obstruction or free air. Reyes Jewell MD Abdomen Ultrasound 12/06/15 0000 Signed Impressions: Service Date/Time: Sunday, December 06, 2015 17:42 - CONCLUSION: 1. The gallbladder is unremarkable with no evidence of cholelithiasis. 2. Simple cyst in the left kidney. 3. Mild pyelocaliectasis in the right kidney. Salazar Thurman MD Upper Extremity Ultrasound 10/13/15 0000 Signed Impressions: Service Date/Time: Tuesday, October 13, 2015 09:51 - CONCLUSION: 1. No evidence of deep venous thrombosis. John Anderson MD Renal Ultrasound 10/07/15 0000 Signed Impressions: Service Date/Time: Wednesday, October 07, 2015 18:29 - CONCLUSION: 1. No acute findings. 3.6 cm left renal cyst. Valdez catheter in bladder. Amaury Ellsworth MD Tunnelled Chest Tube Removal 08/05/15 1100 Signed Impressions: Service Date/Time: Wednesday, August 05, 2015 11:00 - CONCLUSION: Uncomplicated chest tube removal. Blaine Jackson MD Chest Tube Change 07/31/15 0000 Signed Impressions: Service Date/Time: Friday, July 31, 2015 14:34 - CONCLUSION: Uncomplicated reposition of previously placed chest tube as above. Blaine Jackson MD Chest Tube Insertion 07/30/15 0000 Signed Impressions: Service Date/Time: July 14:50 - CONCLUSION: Uncomplicated chest tube placement as above. Blaine Jackson MD Catheter Change 07/27/15 0000 Signed Impressions: Service Date/Time: Monday, July 27, 2015 14:43 - CONCLUSION: Uncomplicated gastrostomy tube exchange as above. Blaine Jackson MD Chest CT 07/11/15 0000 Signed Impressions: Service Date/Time: Saturday, July 11, 2015 09:49 - CONCLUSION: Scattered patchy densities significantly improved from previous study. Tiny anterior right basilar pneumothorax. Right-sided chest tube in good position. Néstor Matamoros MD Head CT 06/18/151902 Signed Impressions: Service Date/Time: June 19:31 - CONCLUSION: Diffuse atrophy unchanged. No acute intracranial findings. Kush Briscoe MD Abdomen/Pelvis CT 5/12/16 1903 Signed Impressions: Service Date/Time: June 19:36 - CONCLUSION: 1. Chronic nonspecific urinary bladder wall thickening. Bladder collapsed with Valdez catheter in place. 2. Chronic bilateral mid to lower lung zone groundglass opacity. 3. Nonobstructing left renal calculus. 4. Distended rectum. Kush Briscoe MD Objective Remarks pupils reactive, anicteric, trach in place - in t piece decrease breath sounds, no rales regular rhythm- good bowel sounds, PEG in place extremities - no edema both upper extremities- moves spontaneously lower extremities-flexion contractures sacral area - stage IV- good granulation, no drainage, edges clean valdez catheter in place- draining clear urine changed 01/26- Procedures 07/26- PEG replacement 07/29- right pigtail catheter placement for new pneumothorax Urinary Catheter: Yes Assessment to: Continue Valdez insert reason: Prolonged Immobilization Date of Insertion: Jan 27, 2016 A/P Problem List: (1) Sepsis due to urinary tract infection ICD Code: A41.9 Status: Resolved (2) Acute respiratory failure ICD Code: J96.00 Status: Resolved (3) Chronic respiratory failure ICD Code: J96.10 Status: Chronic (4) Parkinson disease ICD Code: G20 Status: Chronic (5) UTI (urinary tract infection) ICD Code: N39.0 Status: Acute (6) Encephalopathy ICD Code: G93.40 Status: Resolved Assessment and Plan S/P Septic shock Recurrent aspiration pneumonitis. Klebsiella and Pseudomonas.- previously new sputum growing gram negative rods Leukocytosis- afebrile- WBC up to 25,000 (on po prednisone tapered down to 2.5 mg daily) Persistent pyuria- Candiduria- repeat C and s pending (specimen sent from new valdez- changed 01/25) - S/P Zosyn. S/P Vancomycin and Levaquin course. CXR unchanged -clinically copious secretions requiring suctioning thick greenish sputum- culture- Pseudomonas -sputum specimen sent- growing gram negative rods - final C and s pending - urine C and S- Heena - diflucan x 5 days (start date 01/26) Tobramycin nebulization Chronic respiratory failure Chronic tracheostomy. Tolerated T piece. S/P recurrent right pneumothorax status post pigtail catheter removal. Currently on 28% oxygen 01/21. Appreciate pulmonology consult. continue bipap at night. - Suction secretions and Levsin as needed - on po steroids- Prednisone 2.5 mg po daily - Duo nebs 4 times a day and when necessary. S/p colistin nebs and Solumedrol. Metabolic Encephalopathy Parkinson's disease underlying. Appreciate neuro consult. CT head 06/18/15: - diffuse atrophy unchanged. No acute intracranial findings. - Continue cognitive efforts and pain meds. - Parkinson's medication increased by neurology. Have decreased antipsychotics to QOD dosing. Now off antipsychotics - continue to wean clonazepam, changed to 0.25 mg BID 01/21. Malnutrition/protein calorie - moderate Status post PEG. Concern for hematemesis 12/05. GI evaluated pt. Gastroccult was negative and hemoglobin has been stable. Tolerating TFs 01/21. - 01/14. Switch to GJ tube due to aspiration. Consulting IR to evaluate GJ tube 01/19. - Current Colace/senna for bowel regimen. - continue PPI.- Prevacid. Bilateral lower extremity Contractures Stage II DU. - Wound care team following. - Continue physical therapy. - turn q 2 hours GJ tube clogged again 01/26 - IR consult- for evaluation GI prophylaxis: PPI. Stool softener PRN constipation. DVT PPx: Lovenox Discharge Planning difficult placement Problem Qualifiers (1) Chronic respiratory failure: Qualified Code: J96.10 - Chronic respiratory failure, unspecified whether with hypoxia or hypercapnia Claire Queen MD Jan 28, 2016 15:10
[2016-01-28] MEDS: FLUCONAZOLE 100 MG TAB PO SCH (17:23)
[2016-01-28] MEDS: RESP: TOBRAMYCIN SULFATE 80 MG/2 ML NEB NEB SCH (20:00)
[2016-01-28] MEDS: RESP: ALBUTEROL 2.5 MG/3 ML NEB (PRN) NEB (21:03)
[2016-01-28] MEDS: ENOXAPARIN SODIUM 40 MG/0.4 ML SYRINGE SQ SCH (22:10)
[2016-01-29] VITALS (9 sets, daily range): BP systolic 100–127; BP diastolic 68–77; PULSE 74–106; RESP 19–26; TEMP 96.4–99.6; O2SAT 91–99
[2016-01-29] MEDS: BETHANECHOL CHL 10 MG TAB PO SCH ×3 (06:00→22:03)
[2016-01-29] MEDS: FREE WATER G-TUBE SCH ×5 (06:00→22:05)
[2016-01-29] MEDS: INSULIN NovoLIN REGULAR SUPPLEMENTAL SCALE SQ SCH ×4 (07:02→17:11)
[2016-01-29] MEDS: LORazepam 2 MG/ML VIAL IVP PRN (07:07)
[2016-01-29] MEDS: RESP: TOBRAMYCIN SULFATE 80 MG/2 ML NEB NEB SCH ×2 (07:57→21:13)
[2016-01-29] MEDS: CHLORHEXIDINE 0.12% (ORAL KIT) 15 ML CUP MT SCH ×2 (08:00→20:00)
[2016-01-29] MEDS: predniSONE 5 MG TAB PO SCH (09:00)
[2016-01-29] MEDS: COLLAGENASE OINT 30 GM TUBE TOP SCH (09:00)
[2016-01-29] MEDS: MIDODRINE 5 MG TAB G-TUBE SCH ×2 (09:05→22:03)
[2016-01-29] MEDS: clonazePAM 0.5 MG TAB PO SCH ×2 (09:05→22:05)
[2016-01-29] MEDS: CARBIDOPA/LEVODOPA 25 MG/100 MG TAB GT SCH ×4 (09:06→22:04)
[2016-01-29] MEDS: PARoxetine HCL 20 MG TAB G-TUBE SCH (09:06)
[2016-01-29] MEDS: LACTOBACILLUS ACIDOPHILUS TAB PO SCH ×3 (09:06→17:09)
[2016-01-29] MEDS: LANSOPRAZOLE SOLUTAB 30 MG TAB NG SCH (09:06)
[2016-01-29] MEDS: GABAPENTIN 300 MG CAP G-TUBE SCH ×2 (09:06→22:03)
[2016-01-29] MEDS: POTASSIUM CL 40 MEQ/30 ML LIQ UDC GT SCH (09:09)
[2016-01-29] MEDS: ARTIFICIAL TEARS OPTH SOLN 15 ML BTL EACH EYE SCH ×3 (13:00→17:12)
[2016-01-29] MEDS: FLUCONAZOLE 100 MG TAB PO SCH (13:06)
[2016-01-29] MEDS: SODIUM CHLORIDE 0.9% FLUSH 5 ML FLUSH IVF SCH ×2 (13:07→21:00)
--- NOTE | 2016-01-29 13:09 | HHI.PR ---
Subjective Remarks in bed open eyes non verbal no acute issues on T tube Objective Vitals Vital Signs Date Time Temp Pulse Resp B/P Pulse Ox O2 Delivery O2 Flow Rate FiO2 01/29/16 12:00 98.6 106 19 108/71 94 01/29/16 08:00 99.6 103 20 103/76 91 01/29/16 08:00 95 T-piece 28 01/29/16 05:45 92 30 01/29/16 04:30 98.1 104 26 121/70 97 01/29/16 01:35 94 25 01/29/16 00:40 97.9 100 24 118/69 98 01/28/16 22:15 97 Bi-Pap 28 01/28/16 21:30 98 25 01/28/16 21:29 98 BiPAP 25 01/28/16 20:45 97.1 100 20 125/68 96 01/28/16 17:22 97.0 78 18 107/68 100 I/O 01/28/16 01/28/16 01/28/16 01/29/16 01/29/16 01/29/16 06:59 14:59 22:59 06:59 14:59 22:59 Intake Total 0 ml 848 ml 0 ml 0 ml Output Total 350 ml 900 ml 700 ml Balance -350 ml 848 ml -900 ml -700 ml Intake Oral 0 ml 0 ml 0 ml Tube Feeding 848 ml Output Urine Total 350 ml 900 ml 700 ml # Bowel Movements 0 0 5 Result Diagram: 01/28/16 0603 01/28/16 0603 Objective Remarks GENERAL: Cachectic, contracted patient, chronic ill-looking, in no apparent distress. CARDIOVASCULAR: Regular rate and rhythm without murmurs, gallops, or rubs. RESPIRATORY: fair air entry, few crackles bibasilar GASTROINTESTINAL: Abdomen soft, non-tender, nondistended. Normal active bowel sounds PEG tube in place MUSCULOSKELETAL: Lower extremity in crossover contraction , positive pedal pulses,. NEURO: [place], doesn't follow commands, spontaneous movement of upper or lower extremity, doesn't answer question Procedures 07/26- PEG replacement 07/29- right pigtail catheter placement for new pneumothorax Date of Insertion: Jan 27, 2016 A/P Problem List: (1) Sepsis due to urinary tract infection ICD Code: A41.9 Status: Resolved (2) Acute respiratory failure ICD Code: J96.00 Status: Resolved (3) Chronic respiratory failure ICD Code: J96.10 Status: Chronic (4) Parkinson disease ICD Code: G20 Status: Chronic (5) UTI (urinary tract infection) ICD Code: N39.0 Status: Acute (6) Encephalopathy ICD Code: G93.40 Status: Resolved Assessment and Plan S/P Septic shock Recurrent aspiration pneumonitis. Klebsiella and Pseudomonas.- previously new sputum growing gram negative rods Leukocytosis- afebrile- WBC up to 25,000 (on po prednisone tapered down to 2.5 mg daily) Candiduria- repeat C and s pending (specimen sent from new valdez- changed ) - S/P Zosyn. S/P Vancomycin and Levaquin course. CXR unchanged -clinically copious secretions requiring suctioning thick greenish sputum- culture- Pseudomonas -sputum specimen sent- growing gram negative rods - final C and s pending - urine C and S- Heena - diflucan x 5 days (start date 01/26) Tobramycin nebulization -ID signed off Chronic respiratory failure Chronic tracheostomy. Tolerated T piece. S/P recurrent right pneumothorax status post pigtail catheter removal. Currently on 28% oxygen 01/21. - pulmonology ff. continue bipap at night. - Suction secretions and Levsin as needed - on po steroids- Prednisone 2.5 mg po daily - Duo nebs 4 times a day and when necessary. S/p colistin nebs and Solumedrol. Metabolic Encephalopathy Parkinson's disease underlying. neuro consulted . CT head 06/18/15: - diffuse atrophy unchanged. No acute intracranial findings. - Continue cognitive efforts and pain meds. - Parkinson's medication increased by neurology. Have decreased antipsychotics to QOD dosing. Now off antipsychotics - continue to wean clonazepam, changed to 0.25 mg BID 01/21. Malnutrition/protein calorie - moderate Status post PEG. Concern for hematemesis 12/05. GI evaluated pt. Gastroccult was negative and hemoglobin has been stable. Tolerating TFs 01/21. - 01/14. Switch to GJ tube due to aspiration. Consulting IR to evaluate GJ tube 01/19. - Current Colace/senna for bowel regimen. - continue PPI.- Prevacid. Bilateral lower extremity Contractures Stage II DU. - Wound care team following. - Continue physical therapy. - turn q 2 hours GJ tube clogged again 01/26 - IR consult- for evaluation GI prophylaxis: PPI. Stool softener PRN constipation. DVT PPx: Lovenox Discharge Planning to LTC when cleared by pulmonary Problem Qualifiers (1) Chronic respiratory failure: Qualified Code: J96.10 - Chronic respiratory failure, unspecified whether with hypoxia or hypercapnia Jb Ervin MD Jan 29, 2016 13:09
[2016-01-29] MEDS: ENOXAPARIN SODIUM 40 MG/0.4 ML SYRINGE SQ SCH (22:01)
[2016-01-29] MEDS: OLANZapine 2.5 MG TAB GT SCH (22:03)
[2016-01-30] VITALS (10 sets, daily range): BP systolic 97–145; BP diastolic 60–95; PULSE 46–109; RESP 20–22; TEMP 97.3–99.8; O2SAT 93–100
[2016-01-30] MEDS: BETHANECHOL CHL 10 MG TAB PO SCH ×3 (05:43→22:00)
[2016-01-30] MEDS: INSULIN NovoLIN REGULAR SUPPLEMENTAL SCALE SQ SCH ×4 (05:46→18:00)
[2016-01-30] MEDS: FREE WATER G-TUBE SCH ×3 (05:46→18:21)
[2016-01-30] MEDS: RESP: ALBUTEROL 2.5 MG/3 ML NEB (PRN) NEB ×2 (08:04→20:54)
[2016-01-30] MEDS: RESP: TOBRAMYCIN SULFATE 80 MG/2 ML NEB NEB SCH ×2 (08:04→20:54)
[2016-01-30] MEDS: GABAPENTIN 300 MG CAP G-TUBE SCH ×2 (09:00→21:00)
[2016-01-30] MEDS: clonazePAM 0.5 MG TAB PO SCH ×2 (09:00→21:00)
[2016-01-30] MEDS: LANSOPRAZOLE SOLUTAB 30 MG TAB NG SCH (09:00)
[2016-01-30] MEDS: POTASSIUM CL 40 MEQ/30 ML LIQ UDC GT SCH (09:00)
[2016-01-30] MEDS: PARoxetine HCL 20 MG TAB G-TUBE SCH (09:00)
[2016-01-30] MEDS: CARBIDOPA/LEVODOPA 25 MG/100 MG TAB GT SCH ×4 (09:00→21:00)
[2016-01-30] MEDS: predniSONE 5 MG TAB PO SCH (09:00)
[2016-01-30] MEDS: MIDODRINE 5 MG TAB G-TUBE SCH ×2 (09:01→21:00)
[2016-01-30] MEDS: COLLAGENASE OINT 30 GM TUBE TOP SCH (09:01)
[2016-01-30] MEDS: LACTOBACILLUS ACIDOPHILUS TAB PO SCH ×3 (09:01→18:21)
[2016-01-30] MEDS: CHLORHEXIDINE 0.12% (ORAL KIT) 15 ML CUP MT SCH ×2 (09:03→20:00)
[2016-01-30] MEDS: ARTIFICIAL TEARS OPTH SOLN 15 ML BTL EACH EYE SCH ×3 (09:03→18:22)
[2016-01-30] MEDS: SODIUM CHLORIDE 0.9% FLUSH 5 ML FLUSH IVF SCH ×2 (09:04→21:00)
[2016-01-30] MEDS: FLUCONAZOLE 100 MG TAB PO SCH (14:25)
[2016-01-30] MEDS: LORazepam 2 MG/ML VIAL IVP PRN (14:39)
[2016-01-30] MEDS: SODIUM CHLORIDE 0.9% FLUSH 5 ML FLUSH IVF PRN (14:40)
--- NOTE | 2016-01-30 15:00 | HHI.PR ---
Subjective Remarks in bed , closed eyes , in nad Objective Vitals Vital Signs Date Time Temp Pulse Resp B/P Pulse Ox O2 Delivery O2 Flow Rate FiO2 01/30/16 12:00 98.9 109 20 145/64 93 01/30/16 08:00 95 T-piece 8.00 28 01/30/16 07:10 97.9 46 22 130/95 97 01/30/16 04:26 99 30 01/30/16 04:00 97.3 66 22 97/60 100 01/30/16 00:36 96 30 01/30/16 00:00 98.9 96 22 116/68 94 01/29/16 22:00 T-Piece 6.00 28 01/29/16 21:14 99 T-piece 28 01/29/16 20:00 96.4 74 20 127/68 99 01/29/16 17:32 96 T-Piece 6.00 28 01/29/16 16:00 96.5 77 20 100/77 96 I/O 01/29/16 01/29/16 01/29/16 01/30/16 01/30/16 01/30/16 07:00 15:00 23:00 07:00 15:00 23:00 Intake Total 0 ml Output Total 700 ml 625 ml Balance -700 ml -625 ml Intake Oral 0 ml Output Urine Total 700 ml 625 ml # Bowel Movements 5 2 0 Result Diagram: 01/28/1660201/28/16 0603 Objective Remarks GENERAL: Cachectic, contracted patient, chronic ill-looking, in no apparent distress. CARDIOVASCULAR: Regular rate and rhythm without murmurs, gallops, or rubs. RESPIRATORY: fair air entry, few crackles bibasilar GASTROINTESTINAL: Abdomen soft, non-tender, nondistended. Normal active bowel sounds PEG tube in place MUSCULOSKELETAL: Lower extremity in crossover contraction , positive pedal pulses,. NEURO: Davis, doesn't follow commands, spontaneous movement of upper or lower extremity, doesn't answer question Procedures 07/26- PEG replacement 07/29- right pigtail catheter placement for new pneumothorax Date of Insertion: Jan 27, 2016 A/P Problem List: (1) Sepsis due to urinary tract infection ICD Code: A41.9 Status: Resolved (2) Acute respiratory failure ICD Code: J96.00 Status: Resolved (3) Chronic respiratory failure ICD Code: J96.10 Status: Chronic (4) Parkinson disease ICD Code: G20 Status: Chronic (5) UTI (urinary tract infection) ICD Code: N39.0 Status: Acute (6) Encephalopathy ICD Code: G93.40 Status: Resolved Assessment and Plan S/P Septic shock Recurrent aspiration pneumonitis. Klebsiella and Pseudomonas.- previously new sputum growing gram negative rods Leukocytosis- afebrile- WBC up to 25,000 (on po prednisone tapered down to 2.5 mg daily) Candiduria- repeat C and s pending (specimen sent from [facility]- changed ) - S/P Zosyn. S/P Vancomycin and Levaquin course. CXR unchanged -clinically copious secretions requiring suctioning thick greenish sputum- culture- Pseudomonas -sputum specimen sent- growing gram negative rods - final C and s pending - urine C and S- Heena - diflucan x 5 days (start date 01/26) Tobramycin nebulization -ID signed off Chronic respiratory failure Chronic tracheostomy. Tolerated T piece. S/P recurrent right pneumothorax status post pigtail catheter removal. Currently on 28% oxygen 01/21. - pulmonology ff. continue bipap at night. - Suction secretions and Levsin as needed - on po steroids- Prednisone 2.5 mg po daily - Duo nebs 4 times a day and when necessary. S/p colistin nebs and Solumedrol. Metabolic Encephalopathy Parkinson's disease underlying. neuro consulted . CT head 06/18/15: - diffuse atrophy unchanged. No acute intracranial findings. - Continue cognitive efforts and pain meds. - Parkinson's medication increased by neurology. Have decreased antipsychotics to QOD dosing. Now off antipsychotics - continue to wean clonazepam, changed to 0.25 mg BID 01/21. Malnutrition/protein calorie - moderate Status post PEG. Concern for hematemesis 12/05. GI evaluated pt. Gastroccult was negative and hemoglobin has been stable. Tolerating TFs 01/21. - 01/14. Switch to GJ tube due to aspiration. Consulting IR to evaluate GJ tube 01/19. - Current Colace/senna for bowel regimen. - continue PPI.- Prevacid. Bilateral lower extremity Contractures Stage II DU. - Wound care team following. - Continue physical therapy. - turn q 2 hours GJ tube clogged again 01/26 - IR consult- for evaluation GI prophylaxis: PPI. Stool softener PRN constipation. DVT PPx: Lovenox Discharge Planning to LTC when cleared by pulmonary Problem Qualifiers (1) Chronic respiratory failure: Qualified Code: J96.10 - Chronic respiratory failure, unspecified whether with hypoxia or hypercapnia Jb Ervin MD Jan 30, 2016 14:59
--- NOTE | 2016-01-30 15:01 | HHI.PR ---
Subjective Remarks Awake and lethargic . Breathing shallow. and 0n a T bar FIO2 30 % .On Bipap at HS. On tube feeds at 40 CC . No change overall. Objective Vital Signs Date Time Temp Pulse Resp B/P Pulse Ox O2 Delivery O2 Flow Rate FiO2 01/30/16 12:00 98.9 109 20 145/64 93 01/30/16 08:00 95 T-piece 8.00 28 01/30/16 07:10 97.9 46 22 130/95 97 01/30/16 04:26 99 30 01/30/16 04:00 97.3 66 22 97/60 100 01/30/16 00:36 96 30 01/30/16 00:00 98.9 96 22 116/68 94 01/29/16 22:00 T-Piece 6.00 28 01/29/16 21:14 99 T-piece 28 01/29/16 20:00 96.4 74 20 127/68 99 01/29/16 17:32 96 T-Piece 6.00 28 01/29/16 16:00 96.5 77 20 100/77 96 I/O 01/29/16 01/29/16 01/29/16 01/30/16 01/30/16 01/30/16 07:00 15:00 23:00 07:00 15:00 23:00 Intake Total 0 ml Output Total 700 ml 625 ml Balance -700 ml -625 ml Intake Oral 0 ml Output Urine Total 700 ml 625 ml # Bowel Movements 5 2 0 Result Diagram: 01/28/1660201/28/16 0603 Objective Remarks This is a thin white male who is , awake with a trach tube in place. HEENT: Pupils are equal and reactive to light. CHEST:Decreased breath sounds,no crackles. CARDIOVASCULAR: S1 and S2 is normal.No murmur. ABDOMEN: Soft, nondistended. BS +. He has a PEG tube in place. EXTREMITIES: Contractures.muscle wasting. Moves right hand. NEURO: Awake and has weak extremities. Skin is cool. Assessment and Plan Assessment and Plan IMPRESSION 1. Chronic Respiratory failure. 2. Sepsis, Aspiration. Improved 3. Left basal Pneumonia, Resolved 4. Tracheobronchitis 5. Parkinson's disease 6. Dementia. 7. Severe Deconditioning. Plan : 1. Continue on Bipap 5/15, FIo2 28 % at HS 2. Nebs Bid , duoneb. 3. Cont tube feeds Jevity at 40 CC 4. T Bar 28 % daytime. 5. Levsin .25 mg tid prn for Secretions 6. Cont Trach toilet and lavage. 7. CBC,BMP. 1 Darren Kiser MD Jan 30, 2016 15:01
[2016-01-30] MEDS: ENOXAPARIN SODIUM 40 MG/0.4 ML SYRINGE SQ SCH (22:00)
[2016-01-31] VITALS (9 sets, daily range): BP systolic 101–132; BP diastolic 57–86; PULSE 70–96; RESP 16–20; TEMP 96–98.7; O2SAT 87–99
[2016-01-31] MEDS: LORazepam 2 MG/ML VIAL IVP PRN ×3 (03:25→22:00)
[2016-01-31] MEDS ORDERED: SODIUM CHLOR 0.9% 1000 ML INJ 1,000 ML IV ONE (04:00)
[2016-01-31] MEDS: BETHANECHOL CHL 10 MG TAB PO SCH ×3 (05:27→22:00)
[2016-01-31 05:38] LABS: AUTOMATED NEUTROPHIL # 15.3 TH/MM3 (1.8-7.7); BASOPHIL % 0.3 % (0.0-2.0); EOSINOPHIL # 0.1 TH/MM3 (0-0.4); EOSINOPHIL % 0.7 % (0.0-4.0); HEMATOCRIT 31.2 % (39.0-51.0); HEMO FLAGS DIFF FINAL; LYMPH % 5.5 % (9.0-44.0); MEAN CELL VOLUME 83.6 FL (80.0-100.0); MEAN CORPUSCULAR HEMOGLOBIN 26.9 PG (27.0-34.0); MEAN CORPUSCULAR HGB CONC 32.2 % (32.0-36.0); MONO % 6.4 % (0.0-8.0); NEUT % 87.1 % (16.0-70.0); PLATELET COUNT 231 TH/MM3 (150-450); RED BLOOD COUNT 3.73 MIL/MM3 (4.50-5.90); RED CELL DISTRIBUTION WIDTH 14.7 % (11.6-17.2); WHITE BLOOD COUNT 17.5 TH/MM3 (4.0-11.0)
[2016-01-31] MEDS: INSULIN NovoLIN REGULAR SUPPLEMENTAL SCALE SQ SCH ×4 (06:00→17:44)
[2016-01-31] MEDS: FREE WATER G-TUBE SCH ×5 (06:00→23:55)
[2016-01-31] MEDS: RESP: ALBUTEROL 2.5 MG/3 ML NEB (PRN) NEB ×2 (07:27→19:08)
[2016-01-31] MEDS: RESP: TOBRAMYCIN SULFATE 80 MG/2 ML NEB NEB SCH ×2 (07:27→19:32)
[2016-01-31] MEDS: POTASSIUM CL 40 MEQ/30 ML LIQ UDC GT SCH (08:40)
[2016-01-31] MEDS: LANSOPRAZOLE SOLUTAB 30 MG TAB NG SCH (08:40)
[2016-01-31] MEDS: SODIUM CHLORIDE 0.9% FLUSH 5 ML FLUSH IVF SCH ×2 (08:41→21:00)
[2016-01-31] MEDS: CARBIDOPA/LEVODOPA 25 MG/100 MG TAB GT SCH ×4 (08:41→21:00)
[2016-01-31] MEDS: PARoxetine HCL 20 MG TAB G-TUBE SCH (08:41)
[2016-01-31] MEDS: predniSONE 5 MG TAB PO SCH (08:41)
[2016-01-31] MEDS: GABAPENTIN 300 MG CAP G-TUBE SCH ×2 (08:41→21:00)
[2016-01-31] MEDS: clonazePAM 0.5 MG TAB PO SCH ×2 (08:41→21:00)
[2016-01-31] MEDS: MIDODRINE 5 MG TAB G-TUBE SCH ×2 (08:41→21:00)
[2016-01-31] MEDS: LACTOBACILLUS ACIDOPHILUS TAB PO SCH ×3 (08:41→17:42)
[2016-01-31] MEDS: COLLAGENASE OINT 30 GM TUBE TOP SCH (08:42)
[2016-01-31] MEDS: CHLORHEXIDINE 0.12% (ORAL KIT) 15 ML CUP MT SCH ×2 (08:43→20:00)
[2016-01-31] MEDS: ARTIFICIAL TEARS OPTH SOLN 15 ML BTL EACH EYE SCH ×3 (08:43→17:43)
[2016-01-31] MEDS: HYOSCYAMINE SOLN 0.125 MG/ML 15 ML BTL PO PRN (11:47)
--- NOTE | 2016-01-31 14:13 | HHI.PR ---
Subjective Remarks Laying in bed closed is on T-tube Afebrile No acute issue Objective Vitals Vital Signs Date Time Temp Pulse Resp B/P Pulse Ox O2 Delivery O2 Flow Rate FiO2 01/31/16 11:35 98.2 91 20 117/86 94 01/31/16 07:32 98 T-piece 28 01/31/16 07:10 96.0 70 20 101/71 87 01/31/16 06:00 98.6 70 16 128/70 99 01/31/16 03:19 97 30 01/31/16 00:00 98.7 70 20 130/80 98 01/30/16 20:59 96 30 01/30/16 20:00 97.6 95 22 107/71 97 01/30/16 15:00 99.8 93 20 108/64 98 I/O 01/30/16 01/30/16 01/30/16 01/31/16 01/31/16 01/31/16 06:59 14:59 22:59 06:59 14:59 22:59 Intake Total 1818 ml 668 ml Output Total 350 ml Balance 1818 ml 318 ml IV Total 1418 ml Tube Feeding 468 ml Other 400 ml 200 ml Output Urine Total 350 ml Result Diagram: 01/31/16 0524 01/28/16 0603 Objective Remarks GENERAL: Cachectic, contracted patient, chronic ill-looking, in no apparent distress. CARDIOVASCULAR: Regular rate and rhythm without murmurs, gallops, or rubs. RESPIRATORY: fair air entry, few crackles bibasilar GASTROINTESTINAL: Abdomen soft, non-tender, nondistended. Normal active bowel sounds PEG tube in place MUSCULOSKELETAL: Lower extremity in crossover contraction , positive pedal pulses,. NEURO: Davis, doesn't follow commands, spontaneous movement of upper or lower extremity, doesn't answer question Procedures 07/26- PEG replacement 07/29- right pigtail catheter placement for new pneumothorax Date of Insertion: Jan 27, 2016 A/P Problem List: (1) Sepsis due to urinary tract infection ICD Code: A41.9 Status: Resolved (2) Acute respiratory failure ICD Code: J96.00 Status: Resolved (3) Chronic respiratory failure ICD Code: J96.10 Status: Chronic (4) Parkinson disease ICD Code: G20 Status: Chronic (5) UTI (urinary tract infection) ICD Code: N39.0 Status: Acute (6) Encephalopathy ICD Code: G93.40 Status: Resolved Assessment and Plan 01/30: Continue current care, no acute issue S/P Septic shock Recurrent aspiration pneumonitis. Klebsiella and Pseudomonas.- previously new sputum growing gram negative rods Leukocytosis- afebrile- WBC up to 25,000 (on po prednisone tapered down to 2.5 mg daily) Candiduria- repeat C and s pending (specimen sent from [facility]- changed ) - S/P Zosyn. S/P Vancomycin and Levaquin course. CXR unchanged -clinically copious secretions requiring suctioning thick greenish sputum- culture- Pseudomonas -sputum specimen sent- growing gram negative rods - final C and s pending - urine C and S- Heena - diflucan x 5 days (start date 01/26) Tobramycin nebulization -ID signed off Chronic respiratory failure Chronic tracheostomy. Tolerated T piece. S/P recurrent right pneumothorax status post pigtail catheter removal. Currently on 28% oxygen 01/21. - pulmonology ff. continue bipap at night. - Suction secretions and Levsin as needed - on po steroids- Prednisone 2.5 mg po daily - Duo nebs 4 times a day and when necessary. S/p colistin nebs and Solumedrol. Metabolic Encephalopathy Parkinson's disease underlying. neuro consulted . CT head 06/18/15: - diffuse atrophy unchanged. No acute intracranial findings. - Continue cognitive efforts and pain meds. - Parkinson's medication increased by neurology. Have decreased antipsychotics to QOD dosing. Now off antipsychotics - continue to wean clonazepam, changed to 0.25 mg BID 01/21. Malnutrition/protein calorie - moderate Status post PEG. Concern for hematemesis 12/05. GI evaluated pt. Gastroccult was negative and hemoglobin has been stable. Tolerating TFs 01/21. - 01/14. Switch to GJ tube due to aspiration. Consulting IR to evaluate GJ tube 01/19. - Current Colace/senna for bowel regimen. - continue PPI.- Prevacid. Bilateral lower extremity Contractures Stage II DU. - Wound care team following. - Continue physical therapy. - turn q 2 hours GJ tube clogged again 01/26 - IR consult- for evaluation GI prophylaxis: PPI. Stool softener PRN constipation. DVT PPx: Lovenox Discharge Planning to LTC when cleared by pulmonary Problem Qualifiers (1) Chronic respiratory failure: Qualified Code: J96.10 - Chronic respiratory failure, unspecified whether with hypoxia or hypercapnia Jb Ervin MD Jan 31, 2016 14:13
[2016-01-31] MEDS: FLUCONAZOLE 100 MG TAB PO SCH (15:12)
[2016-01-31] MEDS: OLANZapine 2.5 MG TAB GT SCH (21:00)
[2016-02-01] VITALS (11 sets, daily range): BP systolic 96–138; BP diastolic 51–82; PULSE 58–87; RESP 18–34; TEMP 95.7–97.3; O2SAT 95–100
[2016-02-01] MEDS: ENOXAPARIN SODIUM 40 MG/0.4 ML SYRINGE SQ SCH (00:09)
[2016-02-01] MEDS: ACETAMINOPHEN/HYDROcodone 325 MG/5 MG TAB PO PRN (00:09)
[2016-02-01] MEDS: LORazepam 2 MG/ML VIAL IVP PRN ×3 (03:03→21:47)
[2016-02-01] MEDS: SODIUM CHLORIDE 0.9% FLUSH 5 ML FLUSH IVF PRN (03:04)
[2016-02-01] MEDS: BETHANECHOL CHL 10 MG TAB PO SCH ×2 (05:07→14:43)
[2016-02-01] MEDS: INSULIN NovoLIN REGULAR SUPPLEMENTAL SCALE SQ SCH ×4 (05:07→17:10)
[2016-02-01] MEDS: FREE WATER G-TUBE SCH ×3 (05:08→17:15)
[2016-02-01] MEDS: CHLORHEXIDINE 0.12% (ORAL KIT) 15 ML CUP MT SCH ×2 (08:00→20:00)
[2016-02-01] MEDS: RESP: TOBRAMYCIN SULFATE 80 MG/2 ML NEB NEB SCH (09:00)
[2016-02-01] MEDS: LACTOBACILLUS ACIDOPHILUS TAB PO SCH ×4 (09:00→17:15)
[2016-02-01] MEDS: GABAPENTIN 300 MG CAP G-TUBE SCH ×3 (09:00→21:47)
[2016-02-01] MEDS: POTASSIUM CL 40 MEQ/30 ML LIQ UDC GT SCH (09:00)
[2016-02-01] MEDS: CARBIDOPA/LEVODOPA 25 MG/100 MG TAB GT SCH ×5 (09:00→21:46)
[2016-02-01] MEDS: clonazePAM 0.5 MG TAB PO SCH ×2 (10:11→21:47)
[2016-02-01] MEDS: predniSONE 5 MG TAB PO SCH (10:11)
[2016-02-01] MEDS: PARoxetine HCL 20 MG TAB G-TUBE SCH (10:11)
[2016-02-01] MEDS: ARTIFICIAL TEARS OPTH SOLN 15 ML BTL EACH EYE SCH ×3 (10:12→17:16)
[2016-02-01] MEDS: LANSOPRAZOLE SOLUTAB 30 MG TAB NG SCH (10:12)
[2016-02-01] MEDS: MIDODRINE 5 MG TAB G-TUBE SCH ×2 (10:12→22:00)
[2016-02-01] MEDS: COLLAGENASE OINT 30 GM TUBE TOP SCH (10:13)
[2016-02-01] MEDS: SODIUM CHLORIDE 0.9% FLUSH 5 ML FLUSH IVF SCH ×2 (10:13→21:00)
--- NOTE | 2016-02-01 12:11 | HHI.PR ---
Subjective Remarks Clog up G and J tube, however discussed with the nurse finally they got G-tube unclogged Otherwise afebrile laying in bed in no acute issue Objective Vitals Vital Signs Date Time Temp Pulse Resp B/P Pulse Ox O2 Delivery O2 Flow Rate FiO2 02/01/16 09:00 97 T-piece 28 02/01/16 08:00 95.7 58 20 100/65 100 02/01/16 04:45 98 30 02/01/16 04:00 97.0 58 18 96/51 96 02/01/16 01:19 96 30 02/01/16 00:00 97.0 82 20 127/81 01/31/16 20:00 98.3 96 18 132/57 90 01/31/16 19:43 94 30 01/31/16 19:08 94 T-piece 6.00 28 I/O 01/31/16 01/31/16 01/31/16 02/01/16 02/01/16 02/01/16 06:59 14:59 22:59 06:59 14:59 22:59 Intake Total 1238 ml Balance 1238 ml Tube Feeding 638 ml Other 600 ml # Bowel Movements 1 Result Diagram: 01/31/16 0524 01/28/16 0603 Objective Remarks GENERAL: Cachectic, contracted patient, chronic ill-looking, in no apparent distress. CARDIOVASCULAR: Regular rate and rhythm without murmurs, gallops, or rubs. RESPIRATORY: fair air entry, few crackles bibasilar GASTROINTESTINAL: Abdomen soft, non-tender, nondistended. Normal active bowel sounds PEG tube in place MUSCULOSKELETAL: Lower extremity in crossover contraction , positive pedal pulses,. NEURO: Davis, doesn't follow commands, spontaneous movement of upper or lower extremity, doesn't answer question Procedures 07/26- PEG replacement 07/29- right pigtail catheter placement for new pneumothorax Date of Insertion: Jan 27, 2016 A/P Problem List: (1) Sepsis due to urinary tract infection ICD Code: A41.9 Status: Resolved (2) Acute respiratory failure ICD Code: J96.00 Status: Resolved (3) Chronic respiratory failure ICD Code: J96.10 Status: Chronic (4) Parkinson disease ICD Code: G20 Status: Chronic (5) UTI (urinary tract infection) ICD Code: N39.0 Status: Acute (6) Encephalopathy ICD Code: G93.40 Status: Resolved Assessment and Plan 01/30: Continue current care, no acute issue 01/31: clogged up G and J-tube, the nurse got to unclog the G-tube, with have IR to assess tomorrow A/P: S/P Septic shock Recurrent aspiration pneumonitis. Klebsiella and Pseudomonas.- previously new sputum growing gram negative rods Leukocytosis- afebrile- WBC up to 25,000 (on po prednisone tapered down to 2.5 mg daily) Candiduria- repeat C and s pending (specimen sent from [facility]- changed ) - S/P Zosyn. S/P Vancomycin and Levaquin course. CXR unchanged -clinically copious secretions requiring suctioning thick greenish sputum- culture- Pseudomonas -sputum specimen sent- growing gram negative rods - final C and s pending - urine C and S- Heena - diflucan x 5 days (start date 01/26) Tobramycin nebulization -ID signed off Chronic respiratory failure Chronic tracheostomy. Tolerated T piece. S/P recurrent right pneumothorax status post pigtail catheter removal. Currently on 28% oxygen 01/21. - pulmonology ff. continue bipap at night. - Suction secretions and Levsin as needed - on po steroids- Prednisone 2.5 mg po daily - Duo nebs 4 times a day and when necessary. S/p colistin nebs and Solumedrol. Metabolic Encephalopathy Parkinson's disease underlying. neuro consulted . CT head 06/18/15: - diffuse atrophy unchanged. No acute intracranial findings. - Continue cognitive efforts and pain meds. - Parkinson's medication increased by neurology. Have decreased antipsychotics to QOD dosing. Now off antipsychotics - continue to wean clonazepam, changed to 0.25 mg BID 01/21. Malnutrition/protein calorie - moderate Status post PEG. Concern for hematemesis 12/05. GI evaluated pt. Gastroccult was negative and hemoglobin has been stable. Tolerating TFs 01/21. - 01/14. Switch to GJ tube due to aspiration. Consulting IR to evaluate GJ tube 01/19. - Current Colace/senna for bowel regimen. - continue PPI.- Prevacid. Bilateral lower extremity Contractures Stage II DU. - Wound care team following. - Continue physical therapy. - turn q 2 hours GJ tube clogged again 01/26 - IR consult- for evaluation GI prophylaxis: PPI. Stool softener PRN constipation. DVT PPx: Lovenox Discharge Planning to LTC when cleared by pulmonary Problem Qualifiers (1) Chronic respiratory failure: Qualified Code: J96.10 - Chronic respiratory failure, unspecified whether with hypoxia or hypercapnia Jb Ervin MD Feb 01, 2016 12:11
--- NOTE | 2016-02-01 13:57 | HHI.PR ---
Subjective Remarks Awake and Breathing shallow. and 0n a T bar FIO2 35 % .On Bipap at HS. On tube feeds at 40 CC . Neuro status same. J Tube is clogged. Objective Vital Signs Date Time Temp Pulse Resp B/P Pulse Ox O2 Delivery O2 Flow Rate FiO2 02/01/16 12:00 97.3 63 20 113/70 98 02/01/16 09:00 97 T-piece 28 02/01/16 08:00 95.7 58 20 100/65 100 02/01/16 04:45 98 30 02/01/16 04:00 97.0 58 18 96/51 96 02/01/16 01:19 96 30 02/01/16 00:00 97.0 82 20 127/81 01/31/16 20:00 98.3 96 18 132/57 90 01/31/16 19:43 94 30 01/31/16 19:08 94 T-piece 6.00 28 I/O 01/31/16 01/31/16 01/31/16 02/01/16 02/01/16 02/01/16 07:00 15:00 23:00 07:00 15:00 23:00 Intake Total 1238 ml Balance 1238 ml Tube Feeding 638 ml Other 600 ml # Bowel Movements 1 Result Diagram: 01/31/16 0524 01/28/16 0603 Objective Remarks This is a thin white male who is , awake with a trach tube in place. HEENT: Pupils are equal and reactive to light. Face is flushed CHEST:Decreased breath sounds,no crackles. CARDIOVASCULAR: S1 and S2 is normal.No murmur. ABDOMEN: Soft, nondistended. BS +. He has a PEG tube in place. EXTREMITIES: Contractures.muscle wasting. Moves right hand. NEURO: Awake and has weak extremities. Skin is warm. Assessment and Plan Assessment and Plan IMPRESSION 1. Chronic Respiratory failure. 2. Sepsis, Aspiration. Improved 3. Left basal Pneumonia, Resolved 4. Tracheobronchitis 5. Parkinson's disease 6. Dementia. 7. Severe Deconditioning. Plan : 1. Continue on Bipap /, FIo2 28 % at HS 2. Nebs Bid , duoneb. 3. Cont tube feeds Jevity at 40 CC 4. T Bar 28 % daytime. 5. Levsin .25 mg tid prn for Secretions 6. Cont Trach toilet and lavage. 7. Replace J tube. 1 Darren Kiser MD Feb 01, 2016 13:57
[2016-02-01] MEDS: FLUCONAZOLE 100 MG TAB PO SCH (14:43)
[2016-02-01] MEDS: MORPHINE SULFATE 4 MG/ML INJ IV PUSH PRN ×2 (17:12→21:48)
[2016-02-01 17:41] LABS: BLOOD GAS BASE EXCESS 2.3 mmol/L (-2-2); BLOOD GAS CARBOXYHEMOGLOBIN 1.7 % (0-4); BLOOD GAS HCO3 26 mmol/L (22-26); BLOOD GAS METHEMOGLOBIN 0.4 % (0-2); BLOOD GAS O2 HGB SATURATION 94 % (90-100); BLOOD GAS OXYGEN CONTENT 13.3 Vol % (12.0-20.0); BLOOD GAS PCO2 37 mmHg (38-42); BLOOD GAS PO2 79 mmHg (61-120); CRITICAL VALUE NO; TEMP CORR TO 98.6
[2016-02-01 17:42] LABS: DRAW SITE RT RADIAL; FIO2 28 %; NUMBER OF ARTERIAL PUNCTURES 1; OXYGEN DEVICE T TUBE; STAT NO; ULNAR PULSE PRESENT
[2016-02-01 19:06] LABS: AUTOMATED NEUTROPHIL # 7.5 TH/MM3 (1.8-7.7); BASOPHIL # 0.1 TH/MM3 (0-0.2); BASOPHIL % 1.2 % (0.0-2.0); EOSINOPHIL # 0.7 TH/MM3 (0-0.4); EOSINOPHIL % 7.1 % (0.0-4.0); HEMO FLAGS DIFF FINAL; LYMPH % 12.7 % (9.0-44.0); LYMPHOCYTE # 1.3 TH/MM3 (1.0-4.8); MEAN CELL VOLUME 84.1 FL (80.0-100.0); MEAN CORPUSCULAR HEMOGLOBIN 27.2 PG (27.0-34.0); MEAN CORPUSCULAR HGB CONC 32.4 % (32.0-36.0); MONO % 4.9 % (0.0-8.0); NEUT % 74.1 % (16.0-70.0); PLATELET COUNT 245 TH/MM3 (150-450); RED BLOOD COUNT 4.04 MIL/MM3 (4.50-5.90); RED CELL DISTRIBUTION WIDTH 14.7 % (11.6-17.2); WHITE BLOOD COUNT 10.2 TH/MM3 (4.0-11.0)
[2016-02-01 19:19] LABS: BICARBONATE 27.8 MEQ/L (21.0-32.0); POTASSIUM 4.3 MEQ/L (3.5-5.1)
[2016-02-02] VITALS (11 sets, daily range): BP systolic 91–135; BP diastolic 57–81; PULSE 69–94; RESP 18–24; TEMP 96.4–99.2; O2SAT 92–100
[2016-02-02] MEDS: ENOXAPARIN SODIUM 40 MG/0.4 ML SYRINGE SQ SCH ×2 (00:30→22:45)
[2016-02-02] MEDS: BETHANECHOL CHL 10 MG TAB PO SCH ×4 (00:30→22:46)
[2016-02-02] MEDS: LORazepam 2 MG/ML VIAL IVP PRN ×2 (05:20→16:16)
[2016-02-02] MEDS: MORPHINE SULFATE 4 MG/ML INJ IV PUSH PRN (05:22)
[2016-02-02] MEDS: FREE WATER G-TUBE SCH ×5 (05:26→22:47)
[2016-02-02] MEDS: INSULIN NovoLIN REGULAR SUPPLEMENTAL SCALE SQ SCH ×4 (05:59→17:49)
[2016-02-02] MEDS: CHLORHEXIDINE 0.12% (ORAL KIT) 15 ML CUP MT SCH ×2 (08:00→20:00)
--- NOTE | 2016-02-02 08:37 | RADRPT ---
EXAM DATE/TIME: 01/15/2016 12:28 [place] COMPARISON: No previous studies available for comparison. INDICATIONS : Patient presents with clogged g tube in need of conversion to gastrojejunal tube placement for nutrit ion. MEDICAL HISTORY : Dementia Encephalopathy HTN Hx CDIFF Hx MRSA Multiple infections SURGICAL HISTORY : Hemorrhoidal surgery ENT surgeries G tube placement Tracheostomy ENCOUNTER: Subsequent ACUITY: 4-6 months PAIN SCORE: Nonresponsive. LOCATION: N/A FLUORO TIME: 8.3 minutes SEDATION TIME: 40 minutes CONTRAST: 35 cc Omnipaque (iohexol) 350 MEDICATION(S): 1.) 0.75 mg midazolam (Versed) IV 2.) 75 mcg Fentanyl (Sublimaze) IV DEVICE(S): 1.) 22 Fr Transgastric tube PROCEDURE: 1. Fluoroscopically guided gastrostomy to gastrojejunostomy conversion 2. Conscious sedation with continuous EKG and oximetry monitoring. TECHNIQUE: Under sterile conditions and using aseptic technique a guidewire was passed through the previous polina rostomy tube and the wire was manipulated into the small bowel. The prescribed gastrojejunostomy tube was placed over the guidewire. The balloon was inflated with appropriate volume of saline. Injection of positive contrast demonstrates good position of the gastric and jejunal sections of the tube. Conscious sedation was performed with the prescribed dosages and duration as above. EKG and oximetry remained stable throughout the procedure. CONCLUSION: Successful GJ tube exchange as above. Scott Goode MD on February 02, 2016 at 8:35 Board Certified Radiologist. This report was verified electronically.
[2016-02-02] MEDS: LANSOPRAZOLE SOLUTAB 30 MG TAB NG SCH (09:00)
[2016-02-02] MEDS: RESP: TOBRAMYCIN SULFATE 80 MG/2 ML NEB NEB SCH ×2 (09:04→20:13)
[2016-02-02] MEDS: POTASSIUM CL 40 MEQ/30 ML LIQ UDC GT SCH (09:42)
[2016-02-02] MEDS: CARBIDOPA/LEVODOPA 25 MG/100 MG TAB GT SCH ×4 (09:42→22:46)
[2016-02-02] MEDS: GABAPENTIN 300 MG CAP G-TUBE SCH ×2 (09:43→22:46)
[2016-02-02] MEDS: PARoxetine HCL 20 MG TAB G-TUBE SCH (09:43)
[2016-02-02] MEDS: MIDODRINE 5 MG TAB G-TUBE SCH ×2 (09:43→22:46)
[2016-02-02] MEDS: predniSONE 5 MG TAB PO SCH (09:43)
[2016-02-02] MEDS: clonazePAM 0.5 MG TAB PO SCH ×2 (09:43→22:45)
[2016-02-02] MEDS: LACTOBACILLUS ACIDOPHILUS TAB PO SCH ×3 (09:43→17:20)
[2016-02-02] MEDS: ARTIFICIAL TEARS OPTH SOLN 15 ML BTL EACH EYE SCH ×3 (09:47→17:50)
[2016-02-02] MEDS: SODIUM CHLORIDE 0.9% FLUSH 5 ML FLUSH IVF SCH ×2 (09:47→22:46)
[2016-02-02] MEDS: HYOSCYAMINE SOLN 0.125 MG/ML 15 ML BTL PO PRN (09:48)
[2016-02-02] MEDS: COLLAGENASE OINT 30 GM TUBE TOP SCH (09:48)
--- NOTE | 2016-02-02 13:02 | HHI.PR ---
Subjective Remarks Awake and seems calmer. and 0n a T bar FIO2 30 % .On Bipap at HS. On tube feeds at 40 CC . Neuro status same. J Tube changed Objective Vital Signs Date Time Temp Pulse Resp B/P Pulse Ox O2 Delivery O2 Flow Rate FiO2 02/02/16 09:05 95 T-piece 5.00 28 02/02/16 08:03 96.4 69 18 121/81 94 02/02/16 06:38 96.5 70 22 91/63 96 02/02/16 04:45 96 30 02/02/16 01:00 94 30 02/02/16 00:24 97.2 78 24 91/63 92 02/01/16 21:00 96 T-piece 28 02/01/16 20:00 97.2 87 32 124/82 95 02/01/16 17:07 83 32 138/60 95 02/01/16 16:00 97.2 86 34 132/58 95 I/O 02/01/16 02/01/16 02/01/16 02/02/16 02/02/16 02/02/16 07:00 15:00 23:00 07:00 15:00 23:00 Intake Total 410 ml Output Total 475 ml 700 ml 750 ml Balance -65 ml -700 ml -750 ml Tube Feeding 150 ml Other 260 ml Output Urine Total 475 ml 700 ml 750 ml # Bowel Movements 0 1 Result Diagram: 02/01/16183602/01/161836 Objective Remarks This is a thin white male who is , awake with a trach tube in place. HEENT: Pupils are equal and reactive to light. CHEST:Decreased breath sounds,no crackles.Occ wheeze heard CARDIOVASCULAR: S1 and S2 is normal.No murmur. ABDOMEN: Soft, nondistended. BS +. He has a PEG tube in place. EXTREMITIES: Contractures.muscle wasting. Moves right hand. NEURO: Awake and has weak extremities. Skin is warm. Assessment and Plan Assessment and Plan IMPRESSION 1. Chronic Respiratory failure. 2. Sepsis, Aspiration. Improved 3. Left basal Pneumonia, Resolved 4. Tracheobronchitis 5. Parkinson's disease 6. Dementia. 7. Severe Deconditioning. Plan : 1. Continue on Bipap /, FIo2 28 % at HS 2. Nebs Bid , duoneb. 3. Cont tube feeds Jevity at 40 CC 4. T Bar 28 % daytime. 5. Levsin .25 mg tid prn for Secretions 6. Cont Trach toilet and lavage. 7. PT evaluation. 1 Darren Kiser MD Feb 02, 2016 13:02
--- NOTE | 2016-02-02 17:37 | HHI.PR ---
Subjective Remarks Laying in bed closed eyes, no acute issue, J-tube was not be able to get unclogged by IR, will need to be replaced Objective Vitals Vital Signs Date Time Temp Pulse Resp B/P Pulse Ox O2 Delivery O2 Flow Rate FiO2 02/02/16 16:00 99.2 94 18 116/66 96 02/02/16 12:02 98.5 85 18 113/69 96 02/02/16 09:05 95 T-piece 5.00 28 02/02/16 08:03 96.4 69 18 121/81 94 02/02/16 06:38 96.5 70 22 91/63 96 02/02/16 04:45 96 30 02/02/16 01:00 94 30 02/02/16 00:24 97.2 78 24 91/63 92 02/01/16 21:00 96 T-piece 28 02/01/16 20:00 97.2 87 32 124/82 95 I/O 02/01/16 02/01/16 02/01/16 02/02/16 02/02/16 02/02/16 07:00 15:00 23:00 07:00 15:00 23:00 Intake Total 410 ml Output Total 475 ml 700 ml 750 ml Balance -65 ml -700 ml -750 ml Tube Feeding 150 ml Other 260 ml Output Urine Total 475 ml 700 ml 750 ml # Bowel Movements 0 1 Result Diagram: 02/01/16183602/01/161836 Objective Remarks GENERAL: Cachectic, contracted patient, chronic ill-looking, in no apparent distress. CARDIOVASCULAR: Regular rate and rhythm without murmurs, gallops, or rubs. RESPIRATORY: fair air entry, few crackles bibasilar GASTROINTESTINAL: Abdomen soft, non-tender, nondistended. Normal active bowel sounds PEG tube in place MUSCULOSKELETAL: Lower extremity in crossover contraction , positive pedal pulses,. NEURO: Davis, doesn't follow commands, spontaneous movement of upper or lower extremity, doesn't answer question Procedures 07/26- PEG replacement 07/29- right pigtail catheter placement for new pneumothorax Date of Insertion: Jan 27, 2016 A/P Problem List: (1) Sepsis due to urinary tract infection ICD Code: A41.9 Status: Resolved (2) Acute respiratory failure ICD Code: J96.00 Status: Resolved (3) Chronic respiratory failure ICD Code: J96.10 Status: Chronic (4) Parkinson disease ICD Code: G20 Status: Chronic (5) UTI (urinary tract infection) ICD Code: N39.0 Status: Acute (6) Encephalopathy ICD Code: G93.40 Status: Resolved Assessment and Plan 01/30: Continue current care, no acute issue 01/31: clogged up G and J-tube, the nurse got to unclog the G-tube, with have IR to assess tomorrow 02/01: IR is unable to unclog the J-tube, we'll need to replace in a.m. A/P: S/P Septic shock Recurrent aspiration pneumonitis. Klebsiella and Pseudomonas.- previously new sputum growing gram negative rods Leukocytosis- afebrile- WBC up to 25,000 (on po prednisone tapered down to 2.5 mg daily) Candiduria- repeat C and s pending (specimen sent from [facility]- changed ) - S/P Zosyn. S/P Vancomycin and Levaquin course. CXR unchanged -clinically copious secretions requiring suctioning thick greenish sputum- culture- Pseudomonas -sputum specimen sent- growing gram negative rods - final C and s pending - urine C and S- Heena - diflucan x 5 days (start date 01/26) Tobramycin nebulization -ID signed off Chronic respiratory failure Chronic tracheostomy. Tolerated T piece. S/P recurrent right pneumothorax status post pigtail catheter removal. Currently on 28% oxygen 01/21. - pulmonology ff. continue bipap at night. - Suction secretions and Levsin as needed - on po steroids- Prednisone 2.5 mg po daily - Duo nebs 4 times a day and when necessary. S/p colistin nebs and Solumedrol. Metabolic Encephalopathy Parkinson's disease underlying. neuro consulted . CT head 06/18/15: - diffuse atrophy unchanged. No acute intracranial findings. - Continue cognitive efforts and pain meds. - Parkinson's medication increased by neurology. Have decreased antipsychotics to QOD dosing. Now off antipsychotics - continue to wean clonazepam, changed to 0.25 mg BID 01/21. Malnutrition/protein calorie - moderate Status post PEG. Concern for hematemesis 12/05. GI evaluated pt. Gastroccult was negative and hemoglobin has been stable. Tolerating TFs 01/21. - 12/9. Switch to GJ tube due to aspiration. Consulting IR to evaluate GJ tube 01/19. - Current Colace/senna for bowel regimen. - continue PPI.- Prevacid. Bilateral lower extremity Contractures Stage II DU. - Wound care team following. - Continue physical therapy. - turn q 2 hours GJ tube clogged again 01/26 - IR consult- for evaluation GI prophylaxis: PPI. Stool softener PRN constipation. DVT PPx: Lovenox Discharge Planning to LTC when cleared by pulmonary Problem Qualifiers (1) Chronic respiratory failure: Qualified Code: J96.10 - Chronic respiratory failure, unspecified whether with hypoxia or hypercapnia Jb Ervin MD Feb 02, 2016 17:37
[2016-02-02] MEDS: OLANZapine 2.5 MG TAB GT SCH (22:46)
[2016-02-03] VITALS (10 sets, daily range): BP systolic 114–144; BP diastolic 60–87; PULSE 79–97; RESP 20–24; TEMP 96.1–100.6; O2SAT 95–98
[2016-02-03] MEDS: FREE WATER G-TUBE SCH ×4 (06:00→21:46)
[2016-02-03] MEDS: INSULIN NovoLIN REGULAR SUPPLEMENTAL SCALE SQ SCH ×4 (06:00→18:00)
[2016-02-03] MEDS: BETHANECHOL CHL 10 MG TAB PO SCH ×3 (06:00→21:45)
[2016-02-03] MEDS: LANSOPRAZOLE SOLUTAB 30 MG TAB NG SCH (07:26)
[2016-02-03] MEDS: clonazePAM 0.5 MG TAB PO SCH ×2 (07:26→21:45)
[2016-02-03] MEDS: GABAPENTIN 300 MG CAP G-TUBE SCH ×2 (07:26→21:45)
[2016-02-03] MEDS: LACTOBACILLUS ACIDOPHILUS TAB PO SCH ×3 (07:29→18:00)
[2016-02-03] MEDS: CARBIDOPA/LEVODOPA 25 MG/100 MG TAB GT SCH ×4 (07:29→21:44)
[2016-02-03] MEDS: predniSONE 5 MG TAB PO SCH (07:29)
[2016-02-03] MEDS: PARoxetine HCL 20 MG TAB G-TUBE SCH (07:29)
[2016-02-03] MEDS: MIDODRINE 5 MG TAB G-TUBE SCH ×2 (07:30→21:45)
[2016-02-03] MEDS: POTASSIUM CL 40 MEQ/30 ML LIQ UDC GT SCH (07:30)
[2016-02-03] MEDS: SODIUM CHLORIDE 0.9% FLUSH 5 ML FLUSH IVF SCH ×2 (07:30→21:00)
[2016-02-03] MEDS: HYOSCYAMINE SOLN 0.125 MG/ML 15 ML BTL PO PRN (07:31)
[2016-02-03] MEDS: CHLORHEXIDINE 0.12% (ORAL KIT) 15 ML CUP MT SCH ×2 (07:33→20:00)
[2016-02-03] MEDS: COLLAGENASE OINT 30 GM TUBE TOP SCH (07:33)
[2016-02-03] MEDS: MORPHINE SULFATE 4 MG/ML INJ IV PUSH PRN (07:39)
[2016-02-03] MEDS: RESP: TOBRAMYCIN SULFATE 80 MG/2 ML NEB NEB SCH ×2 (08:13→20:00)
[2016-02-03] MEDS: ARTIFICIAL TEARS OPTH SOLN 15 ML BTL EACH EYE SCH ×3 (09:00→18:00)
--- NOTE | 2016-02-03 17:32 | HHI.PR ---
Subjective Remarks No change in clinical picture laying in bed, afebrile Difficulty placement Objective Vitals Vital Signs Date Time Temp Pulse Resp B/P Pulse Ox O2 Delivery O2 Flow Rate FiO2 02/03/16 17:22 95 T-piece 5.00 28 02/03/16 16:00 96.2 85 24 118/60 96 02/03/16 12:00 96.1 84 20 95 02/03/16 08:10 25 02/03/16 08:10 95 T-piece 5.00 28 02/03/16 08:00 98.0 90 24 119/74 95 02/03/16 05:00 99.4 02/03/16 04:21 97 30 02/03/16 04:00 99.0 02/03/16 04:00 100.6 97 20 144/87 95 02/03/16 00:36 98 T-Piece 30 Humidified 02/03/16 00:36 100.6 97 20 114/87 95 02/02/16 22:39 98 30 02/02/16 20:48 97 T-Piece 30 Humidified 02/02/16 20:48 99.0 75 20 135/57 100 02/02/16 20:14 100 T-piece 28 I/O 02/02/16 02/02/16 02/02/16 02/03/16 02/03/16 02/03/16 07:00 15:00 23:00 07:00 15:00 23:00 Intake Total 325 ml Output Total 750 ml 900 ml 500 ml 300 ml 200 ml Balance -750 ml -900 ml -500 ml 25 ml -200 ml Tube Feeding 125 ml Tube Irrigant 200 ml Output Urine Total 750 ml 900 ml 500 ml 300 ml 200 ml # Bowel Movements 1 0 0 2 0 Result Diagram: 02/01/16183602/01/161836 Objective Remarks GENERAL: Cachectic, contracted patient, chronic ill-looking, in no apparent distress. CARDIOVASCULAR: Regular rate and rhythm without murmurs, gallops, or rubs. RESPIRATORY: fair air entry, few crackles bibasilar GASTROINTESTINAL: Abdomen soft, non-tender, nondistended. Normal active bowel sounds PEG tube in place MUSCULOSKELETAL: Lower extremity in crossover contraction , positive pedal pulses,. NEURO: Davis, doesn't follow commands, spontaneous movement of upper or lower extremity, doesn't answer question Procedures 07/26- PEG replacement 07/29- right pigtail catheter placement for new pneumothorax Date of Insertion: Jan 27, 2016 A/P Problem List: (1) Sepsis due to urinary tract infection ICD Code: A41.9 Status: Resolved (2) Acute respiratory failure ICD Code: J96.00 Status: Resolved (3) Chronic respiratory failure ICD Code: J96.10 Status: Chronic (4) Parkinson disease ICD Code: G20 Status: Chronic (5) UTI (urinary tract infection) ICD Code: N39.0 Status: Acute (6) Encephalopathy ICD Code: G93.40 Status: Resolved Assessment and Plan 01/30: Continue current care, no acute issue 01/31: clogged up G and J-tube, the nurse got to unclog the G-tube, with have IR to assess tomorrow 02/01: IR is unable to unclog the J-tube, we'll need to replace in a.m. 02/02: No acute issue, continue current care, continue efforts for placement A/P: S/P Septic shock Recurrent aspiration pneumonitis. Klebsiella and Pseudomonas.- previously new sputum growing gram negative rods Leukocytosis- afebrile- WBC up to 25,000 (on po prednisone tapered down to 2.5 mg daily) Candiduria- repeat C and s pending (specimen sent [facility]- changed ) - S/P Zosyn. S/P Vancomycin and Levaquin course. CXR unchanged -clinically copious secretions requiring suctioning thick greenish sputum- culture- Pseudomonas -sputum specimen sent- growing gram negative rods - final C and s pending - urine C and S- Heena - diflucan x 5 days (start date 01/26) Tobramycin nebulization -ID signed off Chronic respiratory failure Chronic tracheostomy. Tolerated T piece. S/P recurrent right pneumothorax status post pigtail catheter removal. Currently on 28% oxygen 01/21. - pulmonology ff. continue bipap at night. - Suction secretions and Levsin as needed - on po steroids- Prednisone 2.5 mg po daily - Duo nebs 4 times a day and when necessary. S/p colistin nebs and Solumedrol. Metabolic Encephalopathy Parkinson's disease underlying. neuro consulted . CT head 06/18/15: - diffuse atrophy unchanged. No acute intracranial findings. - Continue cognitive efforts and pain meds. - Parkinson's medication increased by neurology. Have decreased antipsychotics to QOD dosing. Now off antipsychotics - continue to wean clonazepam, changed to 0.25 mg BID 01/21. Malnutrition/protein calorie - moderate Status post PEG. Concern for hematemesis 12/05. GI evaluated pt. Gastroccult was negative and hemoglobin has been stable. Tolerating TFs 01/21. - 01/14. Switch to GJ tube due to aspiration. Consulting IR to evaluate GJ tube 01/19. - Current Colace/senna for bowel regimen. - continue PPI.- Prevacid. Bilateral lower extremity Contractures Stage II DU. - Wound care team following. - Continue physical therapy. - turn q 2 hours GJ tube clogged again 01/26 - IR consult- for evaluation GI prophylaxis: PPI. Stool softener PRN constipation. DVT PPx: Lovenox Discharge Planning to LTC when cleared by pulmonary Problem Qualifiers (1) Chronic respiratory failure: Qualified Code: J96.10 - Chronic respiratory failure, unspecified whether with hypoxia or hypercapnia Jb Ervin MD Feb 03, 2016 17:32
[2016-02-03] MEDS ORDERED: IOHEXOL 350 MG/ML 50 ML BTL (for RAD DIAG) ONE (17:37)
--- NOTE | 2016-02-03 17:51 | PD.RAD ---
Post Procedure Progress Note Pre Procedure Diagnosis: (1) Feeding tube obstruction Post Procedure Diagnosis: (1) Feeding tube obstruction Procedure Date: Feb 03, 2016 Supervising Radiologist: Tai Taylor JR Proceduralist/Assist: Trish Song, RT(R)(CV), Shantel Miller RT(R)() Anesthesia: Other Plan of Activity Patient to Unit: Nursing Unit Patient Condition: Good See PACS Report for procedural detail/treatment Feeding Tube Gastro/Jejunostomy Exchange Setswana: 22 Findings: Occlusion of jejunal tube. This is a recurrent issue. Replaced with new tube. Plan Vigorously flush the jejunal tube with 60 ml of warm tap water every eight hours. Jr. Brandon,Tai Paredes MD Feb 03, 2016 17:51
--- NOTE | 2016-02-03 19:54 | HHI.PR ---
Subjective Remarks Awake and seems more alert. and 0n a T bar FIO2 30 % .On Bipap at HS. On tube feeds at 40 CC . Neuro status same. J Tube changed Objective Vital Signs Date Time Temp Pulse Resp B/P Pulse Ox O2 Delivery O2 Flow Rate FiO2 02/03/16 17:22 95 T-piece 5.00 28 02/03/16 16:00 96.2 85 24 118/60 96 02/03/16 12:00 96.1 84 20 95 02/03/16 08:10 25 02/03/16 08:10 95 T-piece 5.00 28 02/03/16 08:00 98.0 90 24 119/74 95 02/03/16 05:00 99.4 02/03/16 04:21 97 30 02/03/16 04:00 99.0 02/03/16 04:00 100.6 97 20 144/87 95 02/03/16 00:36 98 T-Piece 30 Humidified 02/03/16 00:36 100.6 97 20 114/87 95 02/02/16 22:39 98 30 02/02/16 20:48 97 T-Piece 30 Humidified 02/02/16 20:48 99.0 75 20 135/57 100 02/02/16 20:14 100 T-piece 28 I/O 02/02/16 02/02/16 02/02/16 02/03/16 02/03/16 02/03/16 06:59 14:59 22:59 06:59 14:59 22:59 Intake Total 325 ml Output Total 750 ml 900 ml 500 ml 300 ml 200 ml Balance -750 ml -900 ml -500 ml 25 ml -200 ml Tube Feeding 125 ml Tube Irrigant 200 ml Output Urine Total 750 ml 900 ml 500 ml 300 ml 200 ml # Bowel Movements 1 0 0 2 0 Result Diagram: 02/01/16183602/01/161836 Objective Remarks This is a thin white male who is , awake with a trach tube in place. HEENT: Pupils are equal and reactive to light. CHEST:Decreased breath sounds,with few crackles.Occ wheeze heard CARDIOVASCULAR: S1 and S2 is normal.No murmur. ABDOMEN: Soft, nondistended. BS +. He has a PEG tube in place. EXTREMITIES: Contractures.muscle wasting. Moves right hand. NEURO: Awake and has weak extremities. Skin is warm. Assessment and Plan Assessment and Plan IMPRESSION 1. Chronic Respiratory failure. 2. Sepsis, Aspiration. Improved 3. Left basal Pneumonia, Resolved 4. Tracheobronchitis 5. Parkinson's disease 6. Dementia. 7. Severe Deconditioning. Plan : 1. Continue on Bipap 06/20, FIo2 28 % at HS 2. Nebs Bid , duoneb. 3. Cont tube feeds Jevity at 45 CC 4. T Bar 28 % daytime. 5. Levsin .25 mg tid prn for Secretions 6. Cont Trach toilet and lavage. 7. PT evaluation. 1 Darren Kiser MD Feb 03, 2016 19:53
[2016-02-03] MEDS: ENOXAPARIN SODIUM 40 MG/0.4 ML SYRINGE SQ SCH (21:45)
[2016-02-04] VITALS (11 sets, daily range): BP systolic 98–137; BP diastolic 62–85; PULSE 72–104; RESP 20–24; TEMP 95.7–99; O2SAT 90–100
[2016-02-04] MEDS: INSULIN NovoLIN REGULAR SUPPLEMENTAL SCALE SQ SCH ×4 (06:00→18:00)
[2016-02-04] MEDS: FREE WATER G-TUBE SCH ×3 (06:00→18:00)
[2016-02-04] MEDS: BETHANECHOL CHL 10 MG TAB PO SCH ×3 (06:18→22:00)
[2016-02-04] MEDS: RESP: TOBRAMYCIN SULFATE 80 MG/2 ML NEB NEB SCH ×2 (08:34→20:15)
[2016-02-04] MEDS: LANSOPRAZOLE SOLUTAB 30 MG TAB NG SCH (08:47)
[2016-02-04] MEDS: GABAPENTIN 300 MG CAP G-TUBE SCH (08:47)
[2016-02-04] MEDS: LACTOBACILLUS ACIDOPHILUS TAB PO SCH ×3 (08:47→18:00)
[2016-02-04] MEDS: PARoxetine HCL 20 MG TAB G-TUBE SCH (08:48)
[2016-02-04] MEDS: CARBIDOPA/LEVODOPA 25 MG/100 MG TAB GT SCH ×3 (08:48→18:46)
[2016-02-04] MEDS: MIDODRINE 5 MG TAB G-TUBE SCH (08:48)
[2016-02-04] MEDS: predniSONE 5 MG TAB PO SCH (08:49)
[2016-02-04] MEDS: clonazePAM 0.5 MG TAB PO SCH (08:50)
[2016-02-04] MEDS: POTASSIUM CL 40 MEQ/30 ML LIQ UDC GT SCH (08:51)
[2016-02-04] MEDS: COLLAGENASE OINT 30 GM TUBE TOP SCH (08:51)
[2016-02-04] MEDS: SODIUM CHLORIDE 0.9% FLUSH 5 ML FLUSH IVF SCH (08:54)
[2016-02-04] MEDS: ARTIFICIAL TEARS OPTH SOLN 15 ML BTL EACH EYE SCH ×3 (08:54→18:50)
--- NOTE | 2016-02-04 09:25 | RADRPT ---
EXAM DATE/TIME: 02/03/2016 17:13 [place] COMPARISON: No previous studies available for comparison. INDICATIONS : Clogged GJ tube MEDICAL HISTORY : 1. Parkinson 2.sepsis 3. UTI 4.Dementia 5. Pnuemonia 6. GErD SURGICAL HISTORY : 1. Peg tube 2. Trach 3. Left hip FX ENCOUNTER: Subsequent ACUITY: >1 year PAIN SCORE: 0/10 FLUORO TIME: 9.6 minutes CONTRAST: 30 cc Omnipaque (iohexol) 350 MEDICATION(S): 1.) 100 mcg fentanyl (Sublimaze) IV DEVICE(S): 1.) 22 [place] Transgastric tube PROCEDURE : 1. Fluoroscopically guided gastrojejunostomy tube exchange. 2. Conscious sedation with continuous EKG and oximetry monitoring. The risks, benefits and alternatives to the procedure were explained and verbal and written consent w as obtained. The site was prepped in sterile fashion. Full sterile technique was used, including ca p, mask, sterile gloves and gown and a large sterile sheet. Hand hygiene and 2% chlorhexidine and/or betadine/alcohol prep was utilized per protocol for cutaneous antisepsis. The skin and subcutaneous tissues were infiltrated with local anesthetic solution. With fluoroscopic guidance a guidewire was passed through the previous gastrojejunostomy tube and a f resh tube was placed over the guidewire. The balloon was inflated with appropriate volume of saline. Injection of positive contrast demonstrates good position of the gastric and jejunal lumens of the tube. Conscious sedation was performed with the prescribed dosages and duration as above. The patient lynsey ated the procedure well and there were no complications. EKG and oximetry remained stable throughout the procedure. The patient was sent to post anesthesia recovery in stable condition. CONCLUSION: Uncomplicated gastrojejunostomy tube exchange as above. This is a recurrent occlusion with this tube. We will institute Q8 hour flushing of the tube with warm water. Tai Taylor Jr., MD on February 04, 2016 at 9:23 Board Certified Radiologist. This report was verified electronically.
[2016-02-04] MEDS: CHLORHEXIDINE GLUCONATE 0.12% 30 ML CUP MT SCH ×2 (12:40→20:00)
--- NOTE | 2016-02-04 18:10 | HHI.PR ---
Subjective Remarks Awake and seems more alert. and 0n a T bar FIO2 30 % .On Bipap at HS. On tube feeds at 40 CC . Neuro status same. J Tube changed Objective Vital Signs Date Time Temp Pulse Resp B/P Pulse Ox O2 Delivery O2 Flow Rate FiO2 02/04/16 16:28 99.0 87 20 134/85 90 02/04/16 12:23 97.6 87 20 115/84 96 02/04/16 08:34 97 T-piece 6.00 28 02/04/16 08:20 95.7 72 20 105/70 97 02/04/16 08:00 Trach Collar 02/04/16 06:10 96 30 02/04/16 04:00 96.4 74 24 98/65 96 02/04/16 01:30 97 30 02/04/16 01:30 97 BiPAP 30 02/04/16 00:00 97.0 83 22 110/62 100 02/04/16 00:00 Bi-Pap 02/03/16 20:00 T-Piece 30 Humidified 02/03/16 20:00 97.3 79 22 114/70 98 I/O 02/03/16 02/03/16 02/03/16 02/04/16 02/04/16 02/04/16 06:59 14:59 22:59 06:59 14:59 22:59 Intake Total 325 ml 1300 ml Output Total 300 ml 200 ml 200 ml 200 ml 925 ml Balance 25 ml -200 ml -200 ml 1100 ml -925 ml Tube Feeding 125 ml 400 ml Tube Irrigant 200 ml 900 ml Output Urine Total 300 ml 200 ml 200 ml 200 ml 925 ml # Bowel Movements 2 0 0 1 Result Diagram: 02/01/16183602/01/161836 Objective Remarks This is a thin white male who is , awake with a trach tube in place. HEENT: Pupils are equal and reactive to light. CHEST:Decreased breath sounds,with few crackles.Occ wheeze heard CARDIOVASCULAR: S1 and S2 is normal.No murmur. ABDOMEN: Soft, nondistended. BS +. He has a PEG tube in place. EXTREMITIES: Contractures.muscle wasting. NEURO: Awake and has weak extremities. Skin is warm. Assessment and Plan Assessment and Plan IMPRESSION 1. Chronic Respiratory failure. 2. Sepsis, Aspiration. Improved 3. Left basal Pneumonia, Resolved 4. Tracheobronchitis 5. Parkinson's disease 6. Dementia. 7. Severe Deconditioning. Plan : 1. Continue on Bipap /15, FIo2 28 % at HS 2. Nebs Bid , duoneb. 3. Cont tube feeds Jevity at 45 CC 4. T Bar 28 % daytime. 5. Levsin .25 mg tid prn for Secretions 6. Cont Trach toilet and lavage. 7. PT evaluation. 1 Darren Kiser MD Feb 04, 2016 18:10
--- NOTE | 2016-02-04 20:29 | HHI.PR ---
Subjective Remarks Patient seen earlier this afternoon Open eyes, limbs are contracted On T piece, afebrile, no acute issue Objective Vitals Vital Signs Date Time Temp Pulse Resp B/P Pulse Ox O2 Delivery O2 Flow Rate FiO2 02/04/16 20:18 98 T-piece 28 02/04/16 16:28 99.0 87 20 134/85 90 02/04/16 12:23 97.6 87 20 115/84 96 02/04/16 08:34 97 T-piece 6.00 28 02/04/16 08:20 95.7 72 20 105/70 97 02/04/16 08:00 Trach Collar 02/04/16 06:10 96 30 02/04/16 04:00 96.4 74 24 98/65 96 02/04/16 01:30 97 30 02/04/16 01:30 97 BiPAP 30 02/04/16 00:00 97.0 83 22 110/62 100 02/04/16 00:00 Bi-Pap I/O 02/03/16 02/03/16 02/03/16 02/04/16 02/04/16 02/04/16 06:59 14:59 22:59 06:59 14:59 22:59 Intake Total 325 ml 1300 ml Output Total 300 ml 200 ml 200 ml 200 ml 925 ml Balance 25 ml -200 ml -200 ml 1100 ml -925 ml Tube Feeding 125 ml 400 ml Tube Irrigant 200 ml 900 ml Output Urine Total 300 ml 200 ml 200 ml 200 ml 925 ml # Bowel Movements 2 0 0 1 1 Result Diagram: 02/01/16183602/01/161836 Objective Remarks GENERAL: Cachectic, contracted patient, chronic ill-looking, in no apparent distress. CARDIOVASCULAR: Regular rate and rhythm without murmurs, gallops, or rubs. RESPIRATORY: fair air entry, few crackles bibasilar GASTROINTESTINAL: Abdomen soft, non-tender, nondistended. Normal active bowel sounds PEG tube in place MUSCULOSKELETAL: Lower extremity in crossover contraction , positive pedal pulses,. NEURO: Davis, doesn't follow commands, spontaneous movement of upper or lower extremity, doesn't answer question Procedures 07/26- PEG replacement 07/29- right pigtail catheter placement for new pneumothorax Date of Insertion: Jan 27, 2016 A/P Problem List: (1) Sepsis due to urinary tract infection ICD Code: A41.9 Status: Resolved (2) Acute respiratory failure ICD Code: J96.00 Status: Resolved (3) Chronic respiratory failure ICD Code: J96.10 Status: Chronic (4) Parkinson disease ICD Code: G20 Status: Chronic (5) UTI (urinary tract infection) ICD Code: N39.0 Status: Acute (6) Encephalopathy ICD Code: G93.40 Status: Resolved Assessment and Plan 01/30: Continue current care, no acute issue 01/31: clogged up G and J-tube, the nurse got to unclog the G-tube, with have IR to assess tomorrow 02/01: IR is unable to unclog the J-tube, we'll need to replace in a.m. 02/02: No acute issue, continue current care, continue efforts for placement 02/02: No acute issue continue current care 02/03: J tube replacement today 02/04: stable , cont curent care , resume TF A/P: S/P Septic shock Recurrent aspiration pneumonitis. Klebsiella and Pseudomonas.- previously new sputum growing gram negative rods Leukocytosis- afebrile- WBC up to 25,000 (on po prednisone tapered down to 2.5 mg daily) Candiduria- repeat C and s pending (specimen sent from [facility]- changed ) - S/P Zosyn. S/P Vancomycin and Levaquin course. CXR unchanged -clinically copious secretions requiring suctioning thick greenish sputum- culture- Pseudomonas -sputum specimen sent- growing gram negative rods - final C and s pending - urine C and S- Heena - diflucan x 5 days (start date 01/26) Tobramycin nebulization -ID signed off Chronic respiratory failure Chronic tracheostomy. Tolerated T piece. S/P recurrent right pneumothorax status post pigtail catheter removal. Currently on 28% oxygen 01/21. - pulmonology ff. continue bipap at night. - Suction secretions and Levsin as needed - on po steroids- Prednisone 2.5 mg po daily - Duo nebs 4 times a day and when necessary. S/p colistin nebs and Solumedrol. Metabolic Encephalopathy Parkinson's disease underlying. neuro consulted . CT head 06/18/15: - diffuse atrophy unchanged. No acute intracranial findings. - Continue cognitive efforts and pain meds. - Parkinson's medication increased by neurology. Have decreased antipsychotics to QOD dosing. Now off antipsychotics - continue to wean clonazepam, changed to 0.25 mg BID 01/21. Malnutrition/protein calorie - moderate Status post PEG. Concern for hematemesis 12/05. GI evaluated pt. Gastroccult was negative and hemoglobin has been stable. Tolerating TFs 01/21. - 01/14. Switch to GJ tube due to aspiration. Consulting IR to evaluate GJ tube 01/19. - Current Colace/senna for bowel regimen. - continue PPI.- Prevacid. Bilateral lower extremity Contractures Stage II DU. - Wound care team following. - Continue physical therapy. - turn q 2 hours GJ tube clogged again 01/26 - IR consult- for evaluation GI prophylaxis: PPI. Stool softener PRN constipation. DVT PPx: Lovenox Discharge Planning to LTC when cleared by pulmonary Problem Qualifiers (1) Chronic respiratory failure: Qualified Code: J96.10 - Chronic respiratory failure, unspecified whether with hypoxia or hypercapnia Jb Ervin MD Feb 04, 2016 20:29
[2016-02-05] VITALS (9 sets, daily range): BP systolic 105–160; BP diastolic 64–90; PULSE 76–108; RESP 20–36; TEMP 96.5–99; O2SAT 86–99
[2016-02-05] MEDS: MIDODRINE 5 MG TAB G-TUBE SCH ×2 (00:20→08:37)
[2016-02-05] MEDS: CARBIDOPA/LEVODOPA 25 MG/100 MG TAB GT SCH ×4 (00:20→19:35)
[2016-02-05] MEDS: clonazePAM 0.5 MG TAB PO SCH ×2 (00:20→08:34)
[2016-02-05] MEDS: GABAPENTIN 300 MG CAP G-TUBE SCH ×2 (00:21→08:34)
[2016-02-05] MEDS: OLANZapine 2.5 MG TAB GT SCH (00:21)
[2016-02-05] MEDS: ENOXAPARIN SODIUM 40 MG/0.4 ML SYRINGE SQ SCH (00:22)
[2016-02-05] MEDS: SODIUM CHLORIDE 0.9% FLUSH 5 ML FLUSH IVF SCH ×2 (00:22→08:38)
[2016-02-05] MEDS: BETHANECHOL CHL 10 MG TAB PO SCH ×2 (06:00→12:21)
[2016-02-05] MEDS: FREE WATER G-TUBE SCH ×4 (06:00→18:00)
[2016-02-05] MEDS: INSULIN NovoLIN REGULAR SUPPLEMENTAL SCALE SQ SCH ×4 (06:00→18:00)
[2016-02-05] MEDS: RESP: TOBRAMYCIN SULFATE 80 MG/2 ML NEB NEB SCH ×2 (08:32→20:00)
[2016-02-05] MEDS: POTASSIUM CL 40 MEQ/30 ML LIQ UDC GT SCH (08:35)
[2016-02-05] MEDS: PARoxetine HCL 20 MG TAB G-TUBE SCH (08:35)
[2016-02-05] MEDS: CHLORHEXIDINE GLUCONATE 0.12% 30 ML CUP MT SCH ×2 (08:35→20:00)
[2016-02-05] MEDS: predniSONE 5 MG TAB PO SCH (08:36)
[2016-02-05] MEDS: LANSOPRAZOLE SOLUTAB 30 MG TAB NG SCH (08:36)
[2016-02-05] MEDS: LACTOBACILLUS ACIDOPHILUS TAB PO SCH ×3 (08:37→19:35)
[2016-02-05] MEDS: COLLAGENASE OINT 30 GM TUBE TOP SCH (08:38)
[2016-02-05] MEDS: ARTIFICIAL TEARS OPTH SOLN 15 ML BTL EACH EYE SCH ×3 (08:39→19:36)
[2016-02-05] MEDS: RESP: ALBUTEROL 2.5 MG/3 ML NEB (PRN) NEB (09:11)
--- NOTE | 2016-02-05 10:59 | HHI.HCPN ---
Attempted to contact daughter Radha for follow-up palliative care visit and support; answer any questions/concerns. Unable to reach. Left message with palliative care SW contact information should she have any questions or concerns. Goals have remained unchanged. Mr. Foreman remains a NO CODE with difficult discharge. Palliative care will continue to follow throughout hospitalization. Sulma Taylor, DISPENSER OPERATOR Feb 05, 2016 10:59
--- NOTE | 2016-02-05 14:04 | HHI.PR ---
Subjective Remarks Had his J-tube replaced yesterday, no acute issue, afebrile Objective Vitals Vital Signs Date Time Temp Pulse Resp B/P Pulse Ox O2 Delivery O2 Flow Rate FiO2 02/05/16 12:30 99.0 108 34 105/74 95 02/05/16 09:04 97.7 101 36 110/83 95 02/05/16 08:35 98 T-piece 6.00 28 02/05/16 04:25 98.0 91 20 122/80 99 02/05/16 01:09 98 30 02/05/16 00:45 97.7 89 20 160/90 95 02/05/16 00:00 98 Bi-Pap 30 02/04/16 20:39 98.8 104 20 137/79 97 02/04/16 20:31 97 30 02/04/16 20:18 98 T-piece 28 02/04/16 20:00 T-Piece 6.00 28 Humidified 02/04/16 16:28 99.0 87 20 134/85 90 I/O 02/04/16 02/04/16 02/04/16 02/05/16 02/05/16 02/05/16 06:59 14:59 22:59 06:59 14:59 22:59 Intake Total 1300 ml 990 ml Output Total 200 ml 925 ml 850 ml Balance 1100 ml -925 ml 140 ml Tube Feeding 400 ml 590 ml Tube Irrigant 900 ml Other 400 ml Output Urine Total 200 ml 925 ml 850 ml # Bowel Movements 1 1 2 Result Diagram: 02/01/16183602/01/161836 Objective Remarks GENERAL: Cachectic, contracted patient, chronic ill-looking, in no apparent distress. CARDIOVASCULAR: Regular rate and rhythm without murmurs, gallops, or rubs. RESPIRATORY: fair air entry, few crackles bibasilar GASTROINTESTINAL: Abdomen soft, non-tender, nondistended. Normal active bowel sounds PEG tube in place MUSCULOSKELETAL: Lower extremity in crossover contraction , positive pedal pulses,. NEURO: , doesn't follow commands, spontaneous movement of upper or lower extremity, doesn't answer question Procedures 07/26- PEG replacement 07/29- right pigtail catheter placement for new pneumothorax Date of Insertion: Jan 27, 2016 A/P Problem List: (1) Sepsis due to urinary tract infection ICD Code: A41.9 Status: Resolved (2) Acute respiratory failure ICD Code: J96.00 Status: Resolved (3) Chronic respiratory failure ICD Code: J96.10 Status: Chronic (4) Parkinson disease ICD Code: G20 Status: Chronic (5) UTI (urinary tract infection) ICD Code: N39.0 Status: Acute (6) Encephalopathy ICD Code: G93.40 Status: Resolved Assessment and Plan 01/30: Continue current care, no acute issue 01/31: clogged up G and J-tube, the nurse got to unclog the G-tube, with have IR to assess tomorrow 02/01: IR is unable to unclog the J-tube, we'll need to replace in a.m. 02/02: No acute issue, continue current care, continue efforts for placement 02/02: No acute issue continue current care 02/03: J tube replacement today 02/04: stable , cont curent care , resume TF A/P: S/P Septic shock Recurrent aspiration pneumonitis. Klebsiella and Pseudomonas.- previously new sputum growing gram negative rods Leukocytosis- afebrile- WBC up to 25,000 (on po prednisone tapered down to 2.5 mg daily) Candiduria- repeat C and s pending (specimen sent from [facility]- changed ) - S/P Zosyn. S/P Vancomycin and Levaquin course. CXR unchanged -clinically copious secretions requiring suctioning thick greenish sputum- culture- Pseudomonas -sputum specimen sent- growing gram negative rods - final C and s pending - urine C and S- Heena - diflucan x 5 days (start date 01/26) Tobramycin nebulization -ID signed off Chronic respiratory failure Chronic tracheostomy. Tolerated T piece. S/P recurrent right pneumothorax status post pigtail catheter removal. Currently on 28% oxygen 01/21. - pulmonology ff. continue bipap at night. - Suction secretions and Levsin as needed - on po steroids- Prednisone 2.5 mg po daily - Duo nebs 4 times a day and when necessary. S/p colistin nebs and Solumedrol. Metabolic Encephalopathy Parkinson's disease underlying. neuro consulted . CT head 06/18/15: - diffuse atrophy unchanged. No acute intracranial findings. - Continue cognitive efforts and pain meds. - Parkinson's medication increased by neurology. Have decreased antipsychotics to QOD dosing. Now off antipsychotics - continue to wean clonazepam, changed to 0.25 mg BID 01/21. Malnutrition/protein calorie - moderate Status post PEG. Concern for hematemesis 12/05. GI evaluated pt. Gastroccult was negative and hemoglobin has been stable. Tolerating TFs 01/21. - 01/14. Switch to GJ tube due to aspiration. Consulting IR to evaluate GJ tube 01/19. - Current Colace/senna for bowel regimen. - continue PPI.- Prevacid. Bilateral lower extremity Contractures Stage II DU. - Wound care team following. - Continue physical therapy. - turn q 2 hours GJ tube clogged again 01/26 - IR consult- for evaluation GI prophylaxis: PPI. Stool softener PRN constipation. DVT PPx: Lovenox Discharge Planning to LTC when cleared by pulmonary Problem Qualifiers (1) Chronic respiratory failure: Qualified Code: J96.10 - Chronic respiratory failure, unspecified whether with hypoxia or hypercapnia Jb Ervin MD Feb 05, 2016 14:04
--- NOTE | 2016-02-05 18:00 | HHI.PR ---
Subjective Remarks Lethargic. and 0n a T bar FIO2 28 % .On Bipap at HS. On tube feeds at 40 CC . Neuro status same. J Tube changed Objective Vital Signs Date Time Temp Pulse Resp B/P Pulse Ox O2 Delivery O2 Flow Rate FiO2 02/05/16 17:13 97.2 86 30 121/64 86 02/05/16 12:30 99.0 108 34 105/74 95 02/05/16 09:04 97.7 101 36 110/83 95 02/05/16 08:35 98 T-piece 6.00 28 02/05/16 04:25 98.0 91 20 122/80 99 02/05/16 01:09 98 30 02/05/16 00:45 97.7 89 20 160/90 95 02/05/16 00:00 98 Bi-Pap 30 02/04/16 20:39 98.8 104 20 137/79 97 02/04/16 20:31 97 30 02/04/16 20:18 98 T-piece 02/04/16 20:00 T-Piece 6.00 28 Humidified I/O 02/04/16 02/04/16 02/04/16 02/05/16 02/05/16 02/05/16 07:00 15:00 23:00 07:00 15:00 23:00 Intake Total 1300 ml 990 ml Output Total 200 ml 925 ml 850 ml 600 ml Balance 1100 ml -925 ml 140 ml -600 ml Tube Feeding 400 ml 590 ml Tube Irrigant 900 ml Other 400 ml Output Urine Total 200 ml 925 ml 850 ml 600 ml # Bowel Movements 1 1 2 3 Result Diagram: 02/01/16183602/01/161836 Objective Remarks This is a thin white male who is , awake with a trach tube in place. HEENT: Pupils are equal and reactive to light. CHEST:Decreased breath sounds,with few basal crackles.Occ wheeze heard CARDIOVASCULAR: S1 and S2 is normal.No murmur. ABDOMEN: Soft, nondistended. BS +. He has a PEG tube in place. EXTREMITIES: Contractures.muscle wasting. NEURO: Awake and has weak extremities. Skin is warm. Assessment and Plan Assessment and Plan IMPRESSION 1. Chronic Respiratory failure. 2. Sepsis, Aspiration. Improved 3. Left basal Pneumonia, Resolved 4. Tracheobronchitis 5. Parkinson's disease 6. Dementia. 7. Severe Deconditioning. Plan : 1. Continue on Bipap 06/20, FIo2 28 % at 9 pm to 7 am. 2. Nebs Bid , duoneb. 3. Cont tube feeds Jevity at 45 CC 4. T Bar 28 % daytime. 5. Levsin .25 mg tid prn for Secretions 6. Cont Trach toilet and lavage. 7. Transfer to N Home. 1 Darren Kiser MD Feb 05, 2016 18:00
[2016-02-06] VITALS (11 sets, daily range): BP systolic 97–138; BP diastolic 55–82; PULSE 78–117; RESP 23–37; TEMP 96.7–97.9; O2SAT 90–100
[2016-02-06] MEDS: MIDODRINE 5 MG TAB G-TUBE SCH ×3 (00:26→21:00)
[2016-02-06] MEDS: clonazePAM 0.5 MG TAB PO SCH ×3 (00:26→21:00)
[2016-02-06] MEDS: GABAPENTIN 300 MG CAP G-TUBE SCH ×3 (00:26→21:00)
[2016-02-06] MEDS: FREE WATER G-TUBE SCH ×5 (00:27→23:11)
[2016-02-06] MEDS: BETHANECHOL CHL 10 MG TAB PO SCH ×4 (00:27→22:00)
[2016-02-06] MEDS: SODIUM CHLORIDE 0.9% FLUSH 5 ML FLUSH IVF SCH ×3 (00:27→21:00)
[2016-02-06] MEDS: ENOXAPARIN SODIUM 40 MG/0.4 ML SYRINGE SQ SCH ×2 (00:27→22:00)
[2016-02-06] MEDS: CARBIDOPA/LEVODOPA 25 MG/100 MG TAB GT SCH ×5 (01:03→21:00)
[2016-02-06] MEDS: INSULIN NovoLIN REGULAR SUPPLEMENTAL SCALE SQ SCH ×5 (06:00→23:11)
[2016-02-06] MEDS: LACTOBACILLUS ACIDOPHILUS TAB PO SCH ×3 (08:11→18:32)
[2016-02-06] MEDS: POTASSIUM CL 40 MEQ/30 ML LIQ UDC GT SCH (08:12)
[2016-02-06] MEDS: LANSOPRAZOLE SOLUTAB 30 MG TAB NG SCH (08:12)
[2016-02-06] MEDS: predniSONE 5 MG TAB PO SCH (08:12)
[2016-02-06] MEDS: PARoxetine HCL 20 MG TAB G-TUBE SCH (08:13)
[2016-02-06] MEDS: CHLORHEXIDINE GLUCONATE 0.12% 30 ML CUP MT SCH ×2 (08:14→20:00)
[2016-02-06] MEDS: ARTIFICIAL TEARS OPTH SOLN 15 ML BTL EACH EYE SCH ×3 (08:15→18:00)
[2016-02-06] MEDS: COLLAGENASE OINT 30 GM TUBE TOP SCH ×2 (08:21→13:53)
--- NOTE | 2016-02-06 09:54 | HHI.PR ---
Subjective Remarks Follow up: The patient with lengthy stay, acute on chronic respiratory failure on T piece, UTI encephalopathy He is in bed afebrile, open eyes, suctioning secretions for the nurse at the bedside, limbs contracted, Objective Vitals Vital Signs Date Time Temp Pulse Resp B/P Pulse Ox O2 Delivery O2 Flow Rate FiO2 02/06/16 08:00 97.9 82 23 109/55 95 02/06/16 04:57 95 30 02/06/16 04:00 96.8 89 37 113/75 96 02/06/16 01:10 94 30 02/06/16 00:00 97.8 117 32 123/63 90 02/05/16 21:09 99 T-piece 6.00 40 02/05/16 20:00 96.5 76 32 121/77 98 02/05/16 17:13 97.2 86 30 121/64 86 02/05/16 12:30 99.0 108 34 105/74 95 I/O 02/05/16 02/05/16 02/05/16 02/06/16 02/06/16 02/06/16 07:00 15:00 23:00 07:00 15:00 23:00 Intake Total 990 ml Output Total 850 ml 600 ml 100 ml 100 ml Balance 140 ml -600 ml -100 ml -100 ml Tube Feeding 590 ml Other 400 ml Output Urine Total 850 ml 600 ml 100 ml 100 ml # Bowel Movements 2 3 Objective Remarks GENERAL: Cachectic, contracted patient, chronic ill-looking, in no apparent distress. CARDIOVASCULAR: Regular rate and rhythm without murmurs, gallops, or rubs. RESPIRATORY: fair air entry, few crackles bibasilar GASTROINTESTINAL: Abdomen soft, non-tender, nondistended. Normal active bowel sounds PEG tube in place MUSCULOSKELETAL: Lower extremity in crossover contraction , positive pedal pulses,. NEURO: Davis, doesn't follow commands, spontaneous movement of upper or lower extremity, doesn't answer question Procedures 07/26- PEG replacement 07/29- right pigtail catheter placement for new pneumothorax Date of Insertion: Jan 27, 2016 A/P Problem List: (1) Sepsis due to urinary tract infection ICD Code: A41.9 Status: Resolved (2) Acute respiratory failure ICD Code: J96.00 Status: Resolved (3) Chronic respiratory failure ICD Code: J96.10 Status: Chronic (4) Parkinson disease ICD Code: G20 Status: Chronic (5) UTI (urinary tract infection) ICD Code: N39.0 Status: Acute (6) Encephalopathy ICD Code: G93.40 Status: Resolved Assessment and Plan A/P: S/P Septic shock Recurrent aspiration pneumonitis. Klebsiella and Pseudomonas.- previously new sputum growing gram negative rods Leukocytosis- afebrile- WBC up to 25,000 (on po prednisone tapered down to 2.5 mg daily) Candiduria- repeat C and s pending (specimen sent [facility]- changed ) - S/P Zosyn. S/P Vancomycin and Levaquin course. CXR unchanged -clinically copious secretions requiring suctioning thick greenish sputum- culture- Pseudomonas -sputum specimen sent- growing gram negative rods - final C and s pending - urine C and S- Heena - diflucan x 5 days (start date 01/26) Tobramycin nebulization -ID signed off Chronic respiratory failure Chronic tracheostomy. Tolerated T piece. S/P recurrent right pneumothorax status post pigtail catheter removal. Currently on 28% oxygen 01/21. - pulmonology ff. continue bipap at night. - Suction secretions and Levsin as needed - on po steroids- Prednisone 2.5 mg po daily - Duo nebs 4 times a day and when necessary. S/p colistin nebs and Solumedrol. Metabolic Encephalopathy Parkinson's disease underlying. neuro consulted . CT head 06/18/15: - diffuse atrophy unchanged. No acute intracranial findings. - Continue cognitive efforts and pain meds. - Parkinson's medication increased by neurology. Have decreased antipsychotics to QOD dosing. Now off antipsychotics - continue to wean clonazepam, changed to 0.25 mg BID 01/21. Malnutrition/protein calorie - moderate Status post PEG. Concern for hematemesis 12/05. GI evaluated pt. Gastroccult was negative and hemoglobin has been stable. Tolerating TFs 01/21. - 01/14. Switch to GJ tube due to aspiration. Consulting IR to evaluate GJ tube 01/19. - Current Colace/senna for bowel regimen. - continue PPI.- Prevacid. - 02/03: J tube replacement due to dysfunction Bilateral lower extremity Contractures Stage II DU. - Wound care team following. - Continue physical therapy. - turn q 2 hours GJ tube clogged again 01/26 - IR consult- for evaluation GI prophylaxis: PPI. Stool softener PRN constipation. DVT PPx: Lovenox Discharge Planning to LTC when cleared by pulmonary Problem Qualifiers (1) Chronic respiratory failure: Qualified Code: J96.10 - Chronic respiratory failure, unspecified whether with hypoxia or hypercapnia Jb Ervin MD Feb 06, 2016 09:54
[2016-02-06] MEDS: LORazepam 2 MG/ML VIAL IVP PRN (13:13)
--- NOTE | 2016-02-06 15:29 | HHI.PR ---
Subjective Remarks Lethargic.Opens eyes. and 0n a T bar FIO2 28 % .On Bipap at HS. On tube feeds at 40 CC . Neuro status same. Objective Vital Signs Date Time Temp Pulse Resp B/P Pulse Ox O2 Delivery O2 Flow Rate FiO2 02/06/16 12:14 96.7 91 24 111/72 99 02/06/16 10:50 97 T-piece 40 02/06/16 08:00 97.9 82 23 109/55 95 02/06/16 04:57 95 30 02/06/16 04:00 96.8 89 37 113/75 96 02/06/16 01:10 94 30 02/06/16 00:00 97.8 117 32 123/63 90 02/05/16 21:09 99 T-piece 6.00 40 02/05/16 20:00 96.5 76 32 121/77 98 02/05/16 17:13 97.2 86 30 121/64 86 I/O 02/05/16 02/05/16 02/05/16 02/06/16 02/06/16 02/06/16 07:00 15:00 23:00 07:00 15:00 23:00 Intake Total 990 ml Output Total 850 ml 600 ml 100 ml 100 ml Balance 140 ml -600 ml -100 ml -100 ml Tube Feeding 590 ml Other 400 ml Output Urine Total 850 ml 600 ml 100 ml 100 ml # Bowel Movements 2 3 0 Objective Remarks This is a thin white male who is , awake with a trach tube in place. HEENT: Pupils are equal and reactive to light. CHEST:Decreased breath sounds,with few basal crackles.Occ wheeze heard CARDIOVASCULAR: S1 and S2 is normal.No murmur. ABDOMEN: Soft, nondistended. BS +. He has a PEG tube in place. EXTREMITIES: Contractures.muscle wasting.Moved Right hand. NEURO: Awake and has weak extremities. Skin is warm. Assessment and Plan Assessment and Plan IMPRESSION 1. Chronic Respiratory failure. 2. Sepsis, Aspiration. Improved 3. Left basal Pneumonia, Resolved 4. Tracheobronchitis 5. Parkinson's disease 6. Dementia. 7. Severe Deconditioning. Plan : 1. Continue on Bipap 5/15, FIo2 30 % at 10 pm to 7 am. 2. Nebs Bid , duoneb. 3. Cont tube feeds Jevity at 45 CC 4. T Bar 35 % daytime. 5. Levsin .25 mg tid prn for Secretions 6. Cont Trach toilet and lavage. 1 Darren Kiser MD Feb 06, 2016 15:29
[2016-02-06] MEDS: RESP: ALBUTEROL 2.5 MG/3 ML NEB (PRN) NEB (19:50)
[2016-02-06] MEDS: RESP: TOBRAMYCIN SULFATE 80 MG/2 ML NEB NEB SCH (19:59)
[2016-02-06] MEDS: OLANZapine 2.5 MG TAB GT SCH (21:00)
[2016-02-07] VITALS (9 sets, daily range): BP systolic 98–122; BP diastolic 58–78; PULSE 71–92; RESP 22–38; TEMP 96.1–98.4; O2SAT 96–99
[2016-02-07] MEDS: INSULIN NovoLIN REGULAR SUPPLEMENTAL SCALE SQ SCH ×3 (06:00→17:24)
[2016-02-07] MEDS: FREE WATER G-TUBE SCH ×4 (06:00→23:53)
[2016-02-07] MEDS: BETHANECHOL CHL 10 MG TAB PO SCH ×3 (06:04→22:14)
[2016-02-07] MEDS: RESP: TOBRAMYCIN SULFATE 80 MG/2 ML NEB NEB SCH ×2 (08:00→21:20)
[2016-02-07] MEDS: CHLORHEXIDINE GLUCONATE 0.12% 30 ML CUP MT SCH ×2 (08:00→20:00)
[2016-02-07] MEDS: predniSONE 5 MG TAB PO SCH (10:50)
[2016-02-07] MEDS: GABAPENTIN 300 MG CAP G-TUBE SCH ×2 (10:50→22:15)
[2016-02-07] MEDS: clonazePAM 0.5 MG TAB PO SCH ×2 (10:50→22:15)
[2016-02-07] MEDS: POTASSIUM CL 40 MEQ/30 ML LIQ UDC GT SCH (10:50)
[2016-02-07] MEDS: MIDODRINE 5 MG TAB G-TUBE SCH ×2 (10:51→22:14)
[2016-02-07] MEDS: LACTOBACILLUS ACIDOPHILUS TAB PO SCH ×3 (10:51→17:25)
[2016-02-07] MEDS: CARBIDOPA/LEVODOPA 25 MG/100 MG TAB GT SCH ×4 (10:51→22:12)
[2016-02-07] MEDS: LANSOPRAZOLE SOLUTAB 30 MG TAB NG SCH (10:51)
[2016-02-07] MEDS: PARoxetine HCL 20 MG TAB G-TUBE SCH (10:51)
[2016-02-07] MEDS: SODIUM CHLORIDE 0.9% FLUSH 5 ML FLUSH IVF SCH ×2 (10:52→22:26)
[2016-02-07] MEDS: COLLAGENASE OINT 30 GM TUBE TOP SCH (10:53)
[2016-02-07] MEDS: ARTIFICIAL TEARS OPTH SOLN 15 ML BTL EACH EYE SCH ×3 (10:53→17:25)
--- NOTE | 2016-02-07 12:12 | HHI.PR ---
Subjective Remarks Follow-up for chronic respiratory failure, UTI encephalopathy. Mr. Foreman's eyes are open but does not respond to any commands. Limbs contracted. Objective Vitals Vital Signs Date Time Temp Pulse Resp B/P Pulse Ox O2 Delivery O2 Flow Rate FiO2 02/07/16 12:00 98.4 92 28 104/74 96 02/07/16 09:16 99 T-piece 28 02/07/16 08:00 96.1 71 24 122/78 97 02/07/16 03:06 99 30 02/07/16 01:30 22 97 02/07/16 00:00 97.8 80 38 98/58 97 02/06/16 20:30 97 Nasal Cannula 8.00 02/06/16 20:11 92 30 02/06/16 20:00 96.7 78 36 138/82 92 02/06/16 19:09 95 T-Piece 6.00 28 02/06/16 16:00 97.8 89 25 97/65 95 02/06/16 12:14 96.7 91 24 111/72 99 I/O 02/06/16 02/06/16 02/06/16 02/07/16 02/07/16 02/07/16 07:00 15:00 23:00 07:00 15:00 23:00 Intake Total 717 ml 317 ml Output Total 100 ml 150 ml 101 ml 100 ml Balance -100 ml -150 ml 616 ml 217 ml IV Total 317 ml Tube Feeding 517 ml Other 200 ml Output Urine Total 100 ml 150 ml 100 ml 100 ml Stool Total 1 ml # Bowel Movements 0 Imaging Last Impressions Tube Change 02/03/16 0000 Signed Impressions: Service Date/Time: Wednesday, February 03, 2016 17:13 - CONCLUSION: Uncomplicated gastrojejunostomy tube exchange as above. This is a recurrent occlusion with this tube. We will institute Q8 hour flushing of the tube with warm water. Tai Taylor Jr., MD Chest X-Ray 01/26/16 0600 Signed Impressions: Service Date/Time: Tuesday, January 26, 2016 05:33 - CONCLUSION: Patchy bilateral interstitial opacities without significant change. Erlin Escobar MD Gastrostomy Tube Change 01/15/16 0000 Signed Impressions: Service Date/Time: Friday, January 15, 2016 12:28 - CONCLUSION: Successful GJ tube exchange as above. Scott Goode MD Abdomen X-Ray 01/12/16 1628 Signed Impressions: Service Date/Time: Tuesday, January 12, 2016 17:35 - CONCLUSION: No evidence of obstruction or free air. Reyes Jewell MD Abdomen Ultrasound 12/06/15 0000 Signed Impressions: Service Date/Time: Sunday, December 06, 2015 17:42 - CONCLUSION: 1. The gallbladder is unremarkable with no evidence of cholelithiasis. 2. Simple cyst in the left kidney. 3. Mild pyelocaliectasis in the right kidney. Salazar Thurman MD Upper Extremity Ultrasound 10/13/15 0000 Signed Impressions: Service Date/Time: Tuesday, October 13, 2015 09:51 - CONCLUSION: 1. No evidence of deep venous thrombosis. John Anderson MD Renal Ultrasound 10/07/15 0000 Signed Impressions: Service Date/Time: Wednesday, October 07, 2015 18:29 - CONCLUSION: 1. No acute findings. 3.6 cm left renal cyst. [facility] catheter in bladder. Amaury Ellsworth MD Tunnelled Chest Tube Removal 08/05/15 1100 Signed Impressions: Service Date/Time: Wednesday, August 05, 2015 11:00 - CONCLUSION: Uncomplicated chest tube removal. Blaine Jackson MD Chest Tube Change 07/31/15 0000 Signed Impressions: Service Date/Time: Friday, July 31, 2015 14:34 - CONCLUSION: Uncomplicated reposition of previously placed chest tube as above. Blaine Jackson MD Chest Tube Insertion 07/30/15 0000 Signed Impressions: Service Date/Time: July 14:50 - CONCLUSION: Uncomplicated chest tube placement as above. Blaine Jackson MD Catheter Change 07/27/15 0000 Signed Impressions: Service Date/Time: Monday, July 27, 2015 14:43 - CONCLUSION: Uncomplicated gastrostomy tube exchange as above. Blaine Jackson MD Chest CT 07/11/15 0000 Signed Impressions: Service Date/Time: Saturday, July 11, 2015 09:49 - CONCLUSION: Scattered patchy densities significantly improved from previous study. Tiny anterior right basilar pneumothorax. Right-sided chest tube in good position. Néstor Matamoros MD Head CT 06/18/15 1902 Signed Impressions: Service Date/Time: June 19:31 - CONCLUSION: Diffuse atrophy unchanged. No acute intracranial findings. Kush Briscoe MD Abdomen/Pelvis CT 06/18/151902 Signed Impressions: Service Date/Time: June 19:36 - CONCLUSION: 1. Chronic nonspecific urinary bladder wall thickening. Bladder collapsed with [facility] catheter in place. 2. Chronic bilateral mid to lower lung zone groundglass opacity. 3. Nonobstructing left renal calculus. 4. Distended rectum. Kush Briscoe MD Objective Remarks GENERAL: Cachectic patient with limbs contracted. Eyes open. SKIN: Warm and dry. HEAD: Normocephalic. EYES: No scleral icterus. No injection or drainage. NECK: 8.0 Distal XLT trach in place CARDIOVASCULAR: Regular rate and rhythm without murmurs, gallops, or rubs. RESPIRATORY: coarse breath sounds. GASTROINTESTINAL: Abdomen soft, non-tender, nondistended. MUSCULOSKELETAL: Contracted limbs. Procedures 07/26- PEG replacement 07/29- right pigtail catheter placement for new pneumothorax Date of Insertion: Jan 27, 2016 A/P Problem List: (1) Sepsis due to urinary tract infection ICD Code: A41.9 Status: Resolved (2) Acute respiratory failure ICD Code: J96.00 Status: Resolved (3) Chronic respiratory failure ICD Code: J96.10 Status: Chronic (4) Parkinson disease ICD Code: G20 Status: Chronic (5) UTI (urinary tract infection) ICD Code: N39.0 Status: Acute (6) Encephalopathy ICD Code: G93.40 Status: Resolved Assessment and Plan S/P Septic shock Recurrent aspiration pneumonitis. Klebsiella and Pseudomonas.- previously new sputum growing gram negative rods Leukocytosis- afebrile- WBC up to 25,000 (on po prednisone tapered down to 2.5 mg daily) Candiduria- repeat C and s pending (specimen sent from [facility]- changed ) - S/P Zosyn. S/P Vancomycin and Levaquin course. CXR unchanged -clinically copious secretions requiring suctioning thick greenish sputum- culture- Pseudomonas -sputum specimen sent- growing gram negative rods - final C and s pending - urine C and S- Heena - diflucan x 5 days (start date 01/26) Tobramycin nebulization -ID signed off Chronic respiratory failure Chronic tracheostomy. Tolerated T piece. S/P recurrent right pneumothorax status post pigtail catheter removal. Currently on 28% oxygen 01/21. - pulmonology ff. continue bipap at night. - Suction secretions and Levsin as needed - on po steroids- Prednisone 2.5 mg po daily - Duo nebs 4 times a day and when necessary. S/p colistin nebs and Solumedrol. Metabolic Encephalopathy Parkinson's disease underlying. neuro consulted . CT head 06/18/15: - diffuse atrophy unchanged. No acute intracranial findings. - Continue cognitive efforts and pain meds. - Parkinson's medication increased by neurology. Have decreased antipsychotics to QOD dosing. Now off antipsychotics - continue to wean clonazepam, changed to 0.25 mg BID 01/21. Malnutrition/protein calorie - moderate Status post PEG. Concern for hematemesis 12/05. GI evaluated pt. Gastroccult was negative and hemoglobin has been stable. Tolerating TFs 01/21. - 01/14. Switch to GJ tube due to aspiration. Consulting IR to evaluate GJ tube 01/19. - Current Colace/senna for bowel regimen. - continue PPI.- Prevacid. - 02/03: J tube replacement due to dysfunction Bilateral lower extremity Contractures Stage II DU. - Wound care team following. - Continue physical therapy. - turn q 2 hours GJ tube clogged again 01/26 - IR consult- for evaluation GI prophylaxis: PPI. Stool softener PRN constipation. DVT PPx: Lovenox Discharge Planning to LTC when cleared by pulmonary. No change in current care. Problem Qualifiers (1) Chronic respiratory failure: Qualified Code: J96.10 - Chronic respiratory failure, unspecified whether with hypoxia or hypercapnia Becca Gallegos DO Feb 07, 2016 12:12
--- NOTE | 2016-02-07 15:28 | HHI.PR ---
Subjective Remarks More awake and tries to talk..Opened eyes. and 0n a T bar FIO2 28 % .On Bipap at HS. On tube feeds at 40 CC . Objective Vital Signs Date Time Temp Pulse Resp B/P Pulse Ox O2 Delivery O2 Flow Rate FiO2 02/07/16 12:00 98.4 92 28 104/74 96 02/07/16 09:16 99 T-piece 28 02/07/16 08:00 96.1 71 24 122/78 97 02/07/16 08:00 97 T-Piece 6.00 28 02/07/16 03:06 99 30 02/07/16 01:30 22 97 02/07/16 00:00 97.8 80 38 98/58 97 02/06/16 20:30 97 Nasal Cannula 8.00 02/06/16 20:11 92 30 02/06/16 20:00 96.7 78 36 138/82 92 02/06/16 19:09 95 T-Piece 6.00 28 02/06/16 16:00 97.8 89 25 97/65 95 I/O 02/06/16 02/06/16 02/06/16 02/07/16 02/07/16 02/07/16 06:59 14:59 22:59 06:59 14:59 22:59 Intake Total 717 ml 317 ml Output Total 100 ml 150 ml 101 ml 100 ml Balance -100 ml -150 ml 616 ml 217 ml IV Total 317 ml Tube Feeding 517 ml Other 200 ml Output Urine Total 100 ml 150 ml 100 ml 100 ml Stool Total 1 ml # Bowel Movements 0 Objective Remarks This is a thin white male who is , awake with a trach tube in place. HEENT: Pupils are equal and reactive to light. CHEST:Decreased breath sounds,with few basal crackles and .Occ wheeze heard CARDIOVASCULAR: S1 and S2 is normal.No murmur. ABDOMEN: Soft, nondistended. BS +. He has a PEG tube in place. EXTREMITIES: Contractures.muscle wasting.Moved Right hand. NEURO: Awake and has weak extremities. Responds to some questions. Skin is warm. Assessment and Plan Assessment and Plan IMPRESSION 1. Chronic Respiratory failure. 2. Sepsis, Aspiration. Improved 3. Left basal Pneumonia, Resolved 4. Tracheobronchitis 5. Parkinson's disease 6. Dementia. 7. Severe Deconditioning. Plan : 1. Continue on Bipap 06/20, FIo2 30 % at 10 pm to 7 am. 2. Nebs Bid , duoneb. 3. Cont tube feeds Jevity at 45 CC 4. T Bar 35 % daytime. 5. Levsin .25 mg tid prn for Secretions 6. Cont Trach toilet and lavage. 7. CBC,BMP in am 1 Darren Kiser MD Feb 07, 2016 15:28
[2016-02-07] MEDS: ACETAMINOPHEN 650 MG/20.3 ML UDC TUBE PRN (17:24)
[2016-02-07] MEDS: ENOXAPARIN SODIUM 40 MG/0.4 ML SYRINGE SQ SCH (22:12)
[2016-02-08] VITALS (8 sets, daily range): BP systolic 102–129; BP diastolic 70–77; PULSE 65–95; RESP 20–24; TEMP 96.3–98.1; O2SAT 93–98
[2016-02-08] MEDS: INSULIN NovoLIN REGULAR SUPPLEMENTAL SCALE SQ SCH ×5 (06:00→23:04)
[2016-02-08] MEDS: FREE WATER G-TUBE SCH ×4 (06:00→23:14)
[2016-02-08] MEDS: BETHANECHOL CHL 10 MG TAB PO SCH ×3 (06:20→22:56)
[2016-02-08 08:30] LABS: AUTOMATED NEUTROPHIL # 7.5 TH/MM3 (1.8-7.7); BASOPHIL # 0.1 TH/MM3 (0-0.2); BASOPHIL % 1.3 % (0.0-2.0); EOSINOPHIL # 0.7 TH/MM3 (0-0.4); EOSINOPHIL % 6.9 % (0.0-4.0); HEMATOCRIT 36.7 % (39.0-51.0); HEMO FLAGS DIFF FINAL; LYMPH % 13.5 % (9.0-44.0); LYMPHOCYTE # 1.4 TH/MM3 (1.0-4.8); MEAN CELL VOLUME 84.5 FL (80.0-100.0); MEAN CORPUSCULAR HEMOGLOBIN 27.3 PG (27.0-34.0); MEAN CORPUSCULAR HGB CONC 32.3 % (32.0-36.0); MONO % 5.6 % (0.0-8.0); NEUT % 72.7 % (16.0-70.0); PLATELET COUNT 252 TH/MM3 (150-450); RED BLOOD COUNT 4.34 MIL/MM3 (4.50-5.90); RED CELL DISTRIBUTION WIDTH 14.9 % (11.6-17.2); WHITE BLOOD COUNT 10.3 TH/MM3 (4.0-11.0)
[2016-02-08 08:49] LABS: BICARBONATE 30.7 MEQ/L (21.0-32.0); POTASSIUM 4.9 MEQ/L (3.5-5.1)
[2016-02-08] MEDS: SODIUM CHLORIDE 0.9% FLUSH 5 ML FLUSH IVF SCH ×2 (09:00→23:08)
[2016-02-08] MEDS: COLLAGENASE OINT 30 GM TUBE TOP SCH (09:00)
[2016-02-08] MEDS: RESP: TOBRAMYCIN SULFATE 80 MG/2 ML NEB NEB SCH ×2 (09:03→21:05)
[2016-02-08] MEDS: PARoxetine HCL 20 MG TAB G-TUBE SCH (09:58)
[2016-02-08] MEDS: GABAPENTIN 300 MG CAP G-TUBE SCH ×2 (09:58→22:57)
[2016-02-08] MEDS: CHLORHEXIDINE GLUCONATE 0.12% 30 ML CUP MT SCH ×2 (09:58→23:08)
[2016-02-08] MEDS: ARTIFICIAL TEARS OPTH SOLN 15 ML BTL EACH EYE SCH ×3 (09:58→17:32)
[2016-02-08] MEDS: CARBIDOPA/LEVODOPA 25 MG/100 MG TAB GT SCH ×4 (09:59→22:58)
[2016-02-08] MEDS: LANSOPRAZOLE SOLUTAB 30 MG TAB NG SCH (09:59)
[2016-02-08] MEDS: clonazePAM 0.5 MG TAB PO SCH ×2 (09:59→22:57)
[2016-02-08] MEDS: LACTOBACILLUS ACIDOPHILUS TAB PO SCH ×3 (09:59→17:32)
[2016-02-08] MEDS: POTASSIUM CL 40 MEQ/30 ML LIQ UDC GT SCH (09:59)
[2016-02-08] MEDS: predniSONE 5 MG TAB PO SCH (09:59)
[2016-02-08] MEDS: MIDODRINE 5 MG TAB G-TUBE SCH ×2 (09:59→22:57)
--- NOTE | 2016-02-08 14:30 | HHI.PR ---
Subjective Remarks Follow-up for chronic respiratory failure, UTI encephalopathy. Mr. Foreman tries to say one or two words but not possible to understand. Limbs contracted. Objective Vitals Vital Signs Date Time Temp Pulse Resp B/P Pulse Ox O2 Delivery O2 Flow Rate FiO2 02/08/16 12:00 97.0 80 20 112/74 95 02/08/16 09:05 97 T-piece 28 02/08/16 08:00 96.3 65 20 108/77 96 02/08/16 06:46 96.4 67 22 102/70 95 02/08/16 00:00 93 30 02/08/16 00:00 98.1 82 24 129/70 94 02/07/16 21:28 99 T-piece 6.00 28 02/07/16 20:00 97.8 75 24 112/77 98 02/07/16 20:00 97 T-Piece 6.00 28 02/07/16 18:28 23 02/07/16 16:00 96.8 80 25 107/65 97 I/O 02/07/16 02/07/16 02/07/16 02/08/16 02/08/16 02/08/16 06:59 14:59 22:59 06:59 14:59 22:59 Intake Total 317 ml Output Total 100 ml 225 ml 250 ml 250 ml Balance 217 ml -225 ml -250 ml -250 ml IV Total 317 ml Output Urine Total 100 ml 225 ml 250 ml 250 ml # Bowel Movements 0 0 1 Result Diagram: 02/08/16 0805 02/08/16 0805 Objective Remarks GENERAL: Cachectic patient with limbs contracted. Eyes open. SKIN: Warm and dry. HEAD: Normocephalic. EYES: No scleral icterus. No injection or drainage. NECK: 8.0 Distal XLT trach in place CARDIOVASCULAR: Regular rate and rhythm without murmurs, gallops, or rubs. RESPIRATORY: coarse breath sounds. GASTROINTESTINAL: Abdomen soft, non-tender, nondistended. MUSCULOSKELETAL: Contracted limbs. Procedures 07/26- PEG replacement 07/29- right pigtail catheter placement for new pneumothorax Date of Insertion: Jan 27, 2016 A/P Problem List: (1) Sepsis due to urinary tract infection ICD Code: A41.9 Status: Resolved (2) Acute respiratory failure ICD Code: J96.00 Status: Resolved (3) Chronic respiratory failure ICD Code: J96.10 Status: Chronic (4) Parkinson disease ICD Code: G20 Status: Chronic (5) UTI (urinary tract infection) ICD Code: N39.0 Status: Acute (6) Encephalopathy ICD Code: G93.40 Status: Resolved Assessment and Plan S/P Septic shock Recurrent aspiration pneumonitis. Klebsiella and Pseudomonas.- previously new sputum growing gram negative rods Leukocytosis- afebrile- WBC up to 25,000 (on po prednisone tapered down to 2.5 mg daily) Candiduria- repeat C and s pending (specimen sent from [facility]- changed ) - S/P Zosyn. S/P Vancomycin and Levaquin course. CXR unchanged -clinically copious secretions requiring suctioning thick greenish sputum- culture- Pseudomonas -sputum specimen sent- growing gram negative rods - final C and s pending - urine C and S- Heena - diflucan x 5 days (start date 01/26) Tobramycin nebulization -ID signed off Chronic respiratory failure Chronic tracheostomy. Tolerated T piece. S/P recurrent right pneumothorax status post pigtail catheter removal. Currently on 28% oxygen 01/21. - pulmonology ff. continue bipap at night. - Suction secretions and Levsin as needed - on po steroids- Prednisone 2.5 mg po daily - Duo nebs 4 times a day and when necessary. S/p colistin nebs and Solumedrol. Metabolic Encephalopathy Parkinson's disease underlying. neuro consulted . CT head 06/18/15: - diffuse atrophy unchanged. No acute intracranial findings. - Continue cognitive efforts and pain meds. - Parkinson's medication increased by neurology. Have decreased antipsychotics to QOD dosing. Now off antipsychotics - continue to wean clonazepam, changed to 0.25 mg BID 01/21. Malnutrition/protein calorie - moderate Status post PEG. Concern for hematemesis 12/05. GI evaluated pt. Gastroccult was negative and hemoglobin has been stable. Tolerating TFs 01/21. - 01/14. Switch to GJ tube due to aspiration. Consulting IR to evaluate GJ tube 01/19. - Current Colace/senna for bowel regimen. - continue PPI.- Prevacid. - 02/03: J tube replacement due to dysfunction Bilateral lower extremity Contractures Stage II DU. - Wound care team following. - Continue physical therapy. - turn q 2 hours GJ tube clogged again 01/26 - IR consult- for evaluation GI prophylaxis: PPI. Stool softener PRN constipation. 02/08/2016: No change in current care. Appreciate Pulmonary recommendations. DVT PPx: Lovenox Discharge Planning Will discuss with Pulmonary regarding LTAC placement. Problem Qualifiers (1) Chronic respiratory failure: Qualified Code: J96.10 - Chronic respiratory failure, unspecified whether with hypoxia or hypercapnia Becca Gallegos DO Feb 08, 2016 14:30
--- NOTE | 2016-02-08 18:08 | HHI.PR ---
Subjective Remarks More awake and tries to talk.. and 0n a T bar FIO2 28 % .On Bipap at HS. On tube feeds at 40 CC . Objective Vital Signs Date Time Temp Pulse Resp B/P Pulse Ox O2 Delivery O2 Flow Rate FiO2 02/08/16 16:00 97.7 80 20 108/71 97 02/08/16 12:00 97.0 80 20 112/74 95 02/08/16 09:05 97 T-piece 28 02/08/16 08:00 96.3 65 20 108/77 96 02/08/16 06:46 96.4 67 22 102/70 95 02/08/16 00:00 93 30 02/08/16 00:00 98.1 82 24 129/70 94 02/07/16 21:28 99 T-piece 6.00 28 02/07/16 20:00 97.8 75 24 112/77 98 02/07/16 20:00 97 T-Piece 6.00 28 02/07/16 18:28 23 I/O 02/07/16 02/07/16 02/07/16 02/08/16 02/08/16 02/08/16 07:00 15:00 23:00 07:00 15:00 23:00 Intake Total 317 ml Output Total 100 ml 225 ml 250 ml 250 ml 400 ml 300 ml Balance 217 ml -225 ml -250 ml -250 ml -400 ml -300 ml IV Total 317 ml Output Urine Total 100 ml 225 ml 250 ml 250 ml 400 ml 300 ml # Bowel Movements 0 0 1 1 Result Diagram: 02/08/16 0802/08/16 08 Objective Remarks This is a thin white male who is , awake with a trach tube in place. HEENT: Pupils are equal and reactive to light. CHEST:Decreased breath sounds,with few basal crackles . CARDIOVASCULAR: S1 and S2 is normal.No murmur. ABDOMEN: Soft, nondistended. BS +. He has a PEG tube in place. EXTREMITIES: Contractures.muscle wasting.Moved Right hand. NEURO: Awake and has weak extremities. Responds to some questions. Skin is warm. Assessment and Plan Assessment and Plan IMPRESSION 1. Chronic Respiratory failure. 2. Sepsis, Aspiration. Improved 3. Left basal Pneumonia, Resolved 4. Tracheobronchitis 5. Parkinson's disease 6. Dementia. 7. Severe Deconditioning. Plan : 1. Continue on Bipap 06/20, FIo2 30 % at 10 pm to 7 am. 2. Nebs Bid , duoneb. 3. Cont tube feeds Jevity at 45 CC 4. T Bar 35 % daytime. 5. Levsin .25 mg tid prn for Secretions 6. Cont Trach toilet and lavage. 7. PT evaluation 1 Darren Kiser MD Feb 08, 2016 18:08
[2016-02-08] MEDS: RESP: ALBUTEROL 2.5 MG/3 ML NEB (PRN) NEB (21:05)
[2016-02-08] MEDS: OLANZapine 2.5 MG TAB GT SCH (22:56)
[2016-02-08] MEDS: ENOXAPARIN SODIUM 40 MG/0.4 ML SYRINGE SQ SCH (22:58)
[2016-02-09] VITALS (9 sets, daily range): BP systolic 103–165; BP diastolic 46–90; PULSE 77–116; RESP 20–36; TEMP 95.7–99.2; O2SAT 93–99
[2016-02-09] MEDS: RESP: ALBUTEROL 2.5 MG/3 ML NEB (PRN) NEB (04:09)
[2016-02-09] MEDS: FREE WATER G-TUBE SCH ×3 (06:00→18:00)
[2016-02-09] MEDS: BETHANECHOL CHL 10 MG TAB PO SCH ×3 (06:09→23:07)
[2016-02-09] MEDS: INSULIN NovoLIN REGULAR SUPPLEMENTAL SCALE SQ SCH ×3 (06:21→12:00)
[2016-02-09] MEDS: RESP: TOBRAMYCIN SULFATE 80 MG/2 ML NEB NEB SCH ×2 (08:05→19:35)
[2016-02-09] MEDS: COLLAGENASE OINT 30 GM TUBE TOP SCH (09:00)
[2016-02-09] MEDS: ARTIFICIAL TEARS OPTH SOLN 15 ML BTL EACH EYE SCH ×3 (09:00→18:00)
[2016-02-09] MEDS: predniSONE 5 MG TAB PO SCH (09:00)
[2016-02-09] MEDS: CARBIDOPA/LEVODOPA 25 MG/100 MG TAB GT SCH ×3 (09:00→23:09)
[2016-02-09] MEDS: CHLORHEXIDINE GLUCONATE 0.12% 30 ML CUP MT SCH ×2 (10:08→23:07)
[2016-02-09] MEDS: POTASSIUM CL 40 MEQ/30 ML LIQ UDC GT SCH (10:09)
[2016-02-09] MEDS: MIDODRINE 5 MG TAB G-TUBE SCH ×2 (10:09→23:08)
[2016-02-09] MEDS: GABAPENTIN 300 MG CAP G-TUBE SCH ×2 (10:09→23:07)
[2016-02-09] MEDS: LANSOPRAZOLE SOLUTAB 30 MG TAB NG SCH (10:14)
[2016-02-09] MEDS: LACTOBACILLUS ACIDOPHILUS TAB PO SCH ×2 (10:14→13:00)
[2016-02-09] MEDS: clonazePAM 0.5 MG TAB PO SCH (10:16)
[2016-02-09] MEDS: PARoxetine HCL 20 MG TAB G-TUBE SCH (10:17)
[2016-02-09] MEDS: SODIUM CHLORIDE 0.9% FLUSH 5 ML FLUSH IVF SCH ×2 (10:20→23:10)
--- NOTE | 2016-02-09 12:31 | HHI.PR ---
Subjective Remarks The pt appeared to be trying to speak. Eyes were closed. Objective Vitals Vital Signs Date Time Temp Pulse Resp B/P Pulse Ox O2 Delivery O2 Flow Rate FiO2 02/09/16 08:05 95 T-piece 6.00 35 02/09/16 07:15 95.7 86 20 123/74 96 02/09/16 05:00 98 T-Piece 6.00 28 02/09/16 04:17 98.6 116 36 165/90 96 02/09/16 04:17 93 30 02/09/16 00:12 97.0 92 22 127/85 97 02/09/16 00:10 99 30 02/09/16 00:03 98 T-Piece 6.00 28 02/08/16 21:15 98 T-piece 28 02/08/16 20:12 97.9 95 22 113/71 98 02/08/16 20:10 98 T-Piece 6.00 28 02/08/16 16:00 97.7 80 20 108/71 97 I/O 02/08/16 02/08/16 02/08/16 02/09/16 02/09/16 02/09/16 07:00 15:00 23:00 07:00 15:00 23:00 Output Total 250 ml 400 ml 1250 ml 250 ml Balance -250 ml -400 ml -1250 ml -250 ml Output Urine Total 250 ml 400 ml 1250 ml 250 ml # Bowel Movements 1 1 2 Result Diagram: 02/08/16 0805 02/08/16 0805 Imaging Last Impressions Tube Change 02/03/16 0000 Signed Impressions: Service Date/Time: Wednesday, February 03, 2016 17:13 - CONCLUSION: Uncomplicated gastrojejunostomy tube exchange as above. This is a recurrent occlusion with this tube. We will institute Q8 hour flushing of the tube with warm water. Tai Taylor Jr., MD Chest X-Ray 01/26/16 0600 Signed Impressions: Service Date/Time: Tuesday, January 26, 2016 05:33 - CONCLUSION: Patchy bilateral interstitial opacities without significant change. Erlin Escobar MD Gastrostomy Tube Change 01/15/16 0000 Signed Impressions: Service Date/Time: Friday, January 15, 2016 12:28 - CONCLUSION: Successful GJ tube exchange as above. Scott Goode MD Abdomen X-Ray 01/12/16 1628 Signed Impressions: Service Date/Time: Tuesday, January 12, 2016 17:35 - CONCLUSION: No evidence of obstruction or free air. Reyes Jewell MD Abdomen Ultrasound 12/06/15 0000 Signed Impressions: Service Date/Time: Sunday, December 06, 2015 17:42 - CONCLUSION: 1. The gallbladder is unremarkable with no evidence of cholelithiasis. 2. Simple cyst in the left kidney. 3. Mild pyelocaliectasis in the right kidney. Salazar Thurman MD Upper Extremity Ultrasound 10/13/15 0000 Signed Impressions: Service Date/Time: Tuesday, October 13, 2015 09:51 - CONCLUSION: 1. No evidence of deep venous thrombosis. John Anderson MD Renal Ultrasound 10/07/15 0000 Signed Impressions: Service Date/Time: Wednesday, October 07, 2015 18:29 - CONCLUSION: 1. No acute findings. 3.6 cm left renal cyst. Valdez catheter in bladder. Amaury Ellsworth MD Tunnelled Chest Tube Removal 08/05/15 1100 Signed Impressions: Service Date/Time: Wednesday, August 05, 2015 11:00 - CONCLUSION: Uncomplicated chest tube removal. Blaine Jackson MD Chest Tube Change 07/31/15 0000 Signed Impressions: Service Date/Time: Friday, July 31, 2015 14:34 - CONCLUSION: Uncomplicated reposition of previously placed chest tube as above. Blaine Jackson MD Chest Tube Insertion 07/30/15 0000 Signed Impressions: Service Date/Time: July 14:50 - CONCLUSION: Uncomplicated chest tube placement as above. Blaine Jackson MD Catheter Change 07/27/15 0000 Signed Impressions: Service Date/Time: Monday, July 27, 2015 14:43 - CONCLUSION: Uncomplicated gastrostomy tube exchange as above. Blaine Jackson MD Chest CT 07/11/15 0000 Signed Impressions: Service Date/Time: Saturday, July 11, 2015 09:49 - CONCLUSION: Scattered patchy densities significantly improved from previous study. Tiny anterior right basilar pneumothorax. Right-sided chest tube in good position. Néstor Matamoros MD Head CT 06/18/15 [id number] Signed Impressions: Service Date/Time: June 19:31 - CONCLUSION: Diffuse atrophy unchanged. No acute intracranial findings. Kush Briscoe MD Abdomen/Pelvis CT 06/18/15 1903 Signed Impressions: Service Date/Time: June 19:36 - CONCLUSION: 1. Chronic nonspecific urinary bladder wall thickening. Bladder collapsed with Valdez catheter in place. 2. Chronic bilateral mid to lower lung zone groundglass opacity. 3. Nonobstructing left renal calculus. 4. Distended rectum. Kush Briscoe MD Objective Remarks GENERAL: Cachectic patient with limbs contracted. Eyes open. SKIN: Warm and dry. HEAD: Normocephalic. EYES: No scleral icterus. No injection or drainage. NECK: 8.0 Distal XLT trach in place CARDIOVASCULAR: Regular rate and rhythm without murmurs, gallops, or rubs. RESPIRATORY: coarse breath sounds. GASTROINTESTINAL: Abdomen soft, non-tender, nondistended. MUSCULOSKELETAL: Contracted limbs. Procedures 07/26- PEG replacement 07/29- right pigtail catheter placement for new pneumothorax Medications and IVs Current Medications Medications (Trade) Dose Ordered Sig/Jassi Route Start Time Stop Time Status Last Admin (NS Flush) 2 ml UNSCH PRN IVF 06/18/15 21:30 02/01/16 03:04 (NS Flush) 2 ml BID IVF 06/19/15 09:00 02/09/16 10:20 (Tylenol 650 Mg/ 20 ml Liq) 650 mg Q6H PRN TUBE 06/18/15 21:30 02/07/16 17:24 (Tears Naturale Opth Soln) 1 drop TID EACH EYE 06/19/15 09:00 02/09/16 09:00 (Zofran Inj) 4 mg Q6H PRN IV 06/18/15 21:30 11/26/15 11:54 (Neurontin) 300 mg BID G-TUBE 06/19/15 09:00 02/09/16 10:09 (Lactinex) 1 tab TID PO 06/19/15 09:00 02/09/16 10:14 (Paxil) 20 mg DAILY G-TUBE 06/19/15 09:00 02/09/16 10:17 (Pill Splitter) 1 ea UNSCH PRN OTHER 06/19/15 03:30 06/28/15 09:35 (Prevacid Odt) 30 mg DAILY NG 07/08/15 09:00 02/09/16 10:14 (Morphine Inj) 2 mg Q3H PRN IV PUSH 07/28/15 00:45 02/03/16 07:39 (Lovenox Inj) 40 mg Q24H SQ 08/09/15 22:00 02/08/16 22:58 ([place] 5-325 Mg) 1 tab Q6H PRN PO 08/15/15 15:45 02/01/16 00:09 (Sublimaze Inj) 50 mcg Q2H PRN IV PUSH 08/15/15 15:45 01/15/16 13:10 (Santyl Oint) 1 applic DAILY TOP 08/21/15 09:00 02/09/16 09:00 (Levsin Liq) 0.125 mg Q4H PRN PO 09/06/15 11:00 02/03/16 07:31 (D50w (Vial) Inj) 25 ml UNSCH PRN IV PUSH 10/12/15 17:30 01/06/16 20:14 (Glucagon Inj) 1 mg UNSCH PRN OTHER 10/12/15 17:30 (NovoLIN R SUPPLEMENTAL SCALE) 1 Q6H SQ 10/12/15 18:00 02/09/16 06:21 (Proamatine) 2.5 mg BID G-TUBE 11/15/15 21:00 02/09/16 10:09 (Brethine Inj) 1 mg UNSCH PRN SQ 12/06/15 06:45 (Ativan Inj) 1 mg Q3HR PRN IVP 12/15/15 17:00 02/02/16 16:16 (Deltasone) 2.5 mg DAILY PO 12/23/15 09:00 02/09/16 09:00 (Free Water) 200 ml Q6HR G-TUBE 01/03/16 18:00 02/09/16 06:00 (KCl 40 Meq/30 ml Liq) 20 meq DAILY GT 01/08/16 17:00 02/09/16 10:09 (Urecholine) 10 mg Q8HR PO 01/13/16 22:00 02/09/16 06:09 (Sinemet 25-100 Mg) 1.5 tab QID GT 12/8/16 21:00 02/09/16 09:00 (ZyPREXA) 2.5 mg Q48H GT 01/21/16 21:00 02/08/16 22:56 (KlonoPIN) 0.25 mg BID PO 01/24/16 21:00 02/09/16 10:16 (Peridex 0.12% Liq) 15 ml BID@08,20 MT 02/04/16 10:20 02/09/16 10:08 Date of Insertion: Jan 27, 2016 A/P Problem List: (1) Sepsis due to urinary tract infection ICD Code: A41.9 Status: Resolved (2) Acute respiratory failure ICD Code: J96.00 Status: Resolved (3) Chronic respiratory failure ICD Code: J96.10 Status: Chronic (4) Parkinson disease ICD Code: G20 Status: Chronic (5) UTI (urinary tract infection) ICD Code: N39.0 Status: Acute (6) Encephalopathy ICD Code: G93.40 Status: Resolved Assessment and Plan S/P Septic shock Recurrent aspiration pneumonitis. Klebsiella and Pseudomonas.- previously new sputum growing gram negative rods Leukocytosis- afebrile- WBC up to 25,000 (on po prednisone tapered down to 2.5 mg daily) Candiduria- repeat C and s pending (specimen sent from [facility]- changed ) - S/P Zosyn. S/P Vancomycin and Levaquin course. CXR unchanged -clinically copious secretions requiring suctioning thick greenish sputum- culture- Pseudomonas -sputum specimen sent- growing gram negative rods - final C and s pending - urine C and S- Heena - diflucan x 5 days (start date 01/26) Tobramycin nebulization -ID signed off Chronic respiratory failure Chronic tracheostomy. Tolerated T piece. S/P recurrent right pneumothorax status post pigtail catheter removal. Currently on 35% oxygen 02/19/16. - pulmonology ff. continue bipap at night. - Suction secretions and Levsin as needed - on po steroids- Prednisone 2.5 mg po daily - Duo nebs 4 times a day and when necessary. S/p colistin nebs and Solumedrol. Metabolic Encephalopathy Parkinson's disease underlying. neuro consulted . CT head 06/18/15: - diffuse atrophy unchanged. No acute intracranial findings. - Continue cognitive efforts and pain meds. - Parkinson's medication increased by neurology. Have decreased antipsychotics to QOD dosing. Now off antipsychotics - continue to wean clonazepam, changed to 0.25 mg BID. Will change to daily 02/08. Malnutrition/protein calorie - moderate Status post PEG. Concern for hematemesis 12/05. GI evaluated pt. Gastroccult was negative and hemoglobin has been stable. Tolerating TFs 01/21. - 01/14. Switch to GJ tube due to aspiration. Consulted IR to evaluate GJ tube 01/19. - Current Colace/senna for bowel regimen. - continue PPI.- Prevacid. - 02/03: J tube replacement due to dysfunction Bilateral lower extremity Contractures Stage II DU. - Wound care team following. - Continue physical therapy. - turn q 2 hours. GI prophylaxis: PPI. Stool softener PRN constipation. DVT PPx: Lovenox Discharge Planning Awaiting clinical improvement. Problem Qualifiers (1) Chronic respiratory failure: Qualified Code: J96.10 - Chronic respiratory failure, unspecified whether with hypoxia or hypercapnia Salazar Santa DO Feb 09, 2016 12:31
[2016-02-09] MEDS: ENOXAPARIN SODIUM 40 MG/0.4 ML SYRINGE SQ SCH (23:07)
[2016-02-10] VITALS (12 sets, daily range): BP systolic 79–142; BP diastolic 50–78; PULSE 80–107; RESP 19–43; TEMP 95.7–99.6; O2SAT 90–99
[2016-02-10] MEDS: LORazepam 2 MG/ML VIAL IVP PRN (01:33)
[2016-02-10] MEDS: MORPHINE SULFATE 4 MG/ML INJ IV PUSH PRN (01:34)
[2016-02-10] MEDS: RESP: ALBUTEROL 2.5 MG/3 ML NEB (PRN) NEB ×2 (02:38→19:13)
[2016-02-10] MEDS: INSULIN NovoLIN REGULAR SUPPLEMENTAL SCALE SQ SCH ×4 (06:00→18:00)
[2016-02-10] MEDS: FREE WATER G-TUBE SCH ×5 (06:00→23:58)
[2016-02-10] MEDS: BETHANECHOL CHL 10 MG TAB PO SCH ×3 (07:00→23:57)
[2016-02-10] MEDS ORDERED: SODIUM CHLOR 0.9% 1000 ML INJ 1,000 ML IV ONE (08:45)
[2016-02-10] MEDS: RESP: TOBRAMYCIN SULFATE 80 MG/2 ML NEB NEB SCH ×2 (08:51→19:29)
[2016-02-10] MEDS: SODIUM CHLORIDE 0.9% FLUSH 5 ML FLUSH IVF SCH ×2 (09:00→23:58)
[2016-02-10] MEDS: clonazePAM 0.5 MG TAB PO SCH (09:00)
[2016-02-10] MEDS: COLLAGENASE OINT 30 GM TUBE TOP SCH (09:00)
[2016-02-10] MEDS: PARoxetine HCL 20 MG TAB G-TUBE SCH (09:00)
[2016-02-10] MEDS: CARBIDOPA/LEVODOPA 25 MG/100 MG TAB GT SCH ×4 (09:00→23:55)
[2016-02-10] MEDS: LACTOBACILLUS ACIDOPHILUS TAB PO SCH ×3 (09:00→18:00)
[2016-02-10] MEDS: predniSONE 5 MG TAB PO SCH (09:00)
[2016-02-10] MEDS: ARTIFICIAL TEARS OPTH SOLN 15 ML BTL EACH EYE SCH ×3 (09:00→18:00)
[2016-02-10] MEDS: LANSOPRAZOLE SOLUTAB 30 MG TAB NG SCH (09:00)
[2016-02-10] MEDS: GABAPENTIN 300 MG CAP G-TUBE SCH ×2 (09:00→23:56)
[2016-02-10] MEDS: MIDODRINE 5 MG TAB G-TUBE SCH ×2 (09:00→23:56)
[2016-02-10] MEDS: POTASSIUM CL 40 MEQ/30 ML LIQ UDC GT SCH (09:00)
--- NOTE | 2016-02-10 09:47 | RADRPT ---
EXAM DATE/TIME: 02/10/2016 09:08 [facility] COMPARISON: CHEST SINGLE AP, January 26, 2016, 5:33. INDICATIONS: Dyspnea MEDICAL HISTORY: Hypertension. Diabetes mellitus type II. Urosepsis, Respiratory Failure SURGICAL HISTORY: Tracheostomy ENCOUNTER: Subsequent ACUITY: 1 week PAIN SCORE: Non-responsive. LOCATION: Chest FINDINGS: Trache tube is in good position. Heart and pulmonary vascularity are normal. Patchy interstitial op acities are seen in both upper lobes without change. CONCLUSION: Stable chest. Milo Jackson MD FACR on February 10, 2016 at 9:41 Board Certified Radiologist. This report was verified electronically.
--- NOTE | 2016-02-10 11:25 | HHI.PR ---
Subjective Remarks The pt was resting in bed, eyes were open. Discussed with nursing. There were concerns of low blood pressure which improved following bolus. CXR was stable. Objective Vitals Vital Signs Date Time Temp Pulse Resp B/P Pulse Ox O2 Delivery O2 Flow Rate FiO2 02/10/16 08:52 96 02/10/16 08:52 96 T-piece 35 02/10/16 07:15 97.9 95 20 79/50 97 02/10/16 05:20 98.8 90 20 90/70 98 02/10/16 03:33 97 02/10/16 01:42 19 02/10/16 00:19 97 30 02/10/16 00:04 97.5 87 20 142/78 96 02/09/16 21:40 98 T-Piece 6.00 28 02/09/16 20:51 98.7 97 20 114/46 95 02/09/16 19:47 96 30 02/09/16 16:00 98.0 79 20 110/67 96 02/09/16 11:55 99.2 88 20 103/53 94 I/O 02/09/16 02/09/16 02/09/16 02/10/16 02/10/16 02/10/16 07:00 15:00 23:00 07:00 15:00 23:00 Output Total 250 ml 450 ml 100 ml Balance -250 ml -450 ml -100 ml Output Urine Total 250 ml 450 ml 100 ml # Bowel Movements 2 0 1 Result Diagram: 02/08/16 0805 02/08/16 0805 Imaging Last Impressions Tube Change 02/03/16 0000 Signed Impressions: Service Date/Time: Wednesday, February 03, 2016 17:13 - CONCLUSION: Uncomplicated gastrojejunostomy tube exchange as above. This is a recurrent occlusion with this tube. We will institute Q8 hour flushing of the tube with warm water. Tai Taylor Jr., MD Chest X-Ray 01/26/16 0600 Signed Impressions: Service Date/Time: Tuesday, January 26, 2016 05:33 - CONCLUSION: Patchy bilateral interstitial opacities without significant change. Erlin Escobar MD Gastrostomy Tube Change 01/15/16 0000 Signed Impressions: Service Date/Time: Friday, January 15, 2016 12:28 - CONCLUSION: Successful GJ tube exchange as above. Scott Goode MD Abdomen X-Ray 01/12/16 1628 Signed Impressions: Service Date/Time: Tuesday, January 12, 2016 17:35 - CONCLUSION: No evidence of obstruction or free air. Reyes Jewell MD Abdomen Ultrasound 12/06/15 0000 Signed Impressions: Service Date/Time: Sunday, December 06, 2015 17:42 - CONCLUSION: 1. The gallbladder is unremarkable with no evidence of cholelithiasis. 2. Simple cyst in the left kidney. 3. Mild pyelocaliectasis in the right kidney. Salazar Thurman MD Upper Extremity Ultrasound 10/13/15 0000 Signed Impressions: Service Date/Time: Tuesday, October 13, 2015 09:51 - CONCLUSION: 1. No evidence of deep venous thrombosis. John Anderson MD Renal Ultrasound 10/07/15 0000 Signed Impressions: Service Date/Time: Wednesday, October 07, 2015 18:29 - CONCLUSION: 1. No acute findings. 3.6 cm left renal cyst. Valdez catheter in bladder. Amaury Ellsworth MD Tunnelled Chest Tube Removal 08/05/15 1100 Signed Impressions: Service Date/Time: Wednesday, August 05, 2015 11:00 - CONCLUSION: Uncomplicated chest tube removal. Blaine Jackson MD Chest Tube Change 07/31/15 0000 Signed Impressions: Service Date/Time: Friday, July 31, 2015 14:34 - CONCLUSION: Uncomplicated reposition of previously placed chest tube as above. Blaine Jackson MD Chest Tube Insertion 07/30/15 0000 Signed Impressions: Service Date/Time: July 14:50 - CONCLUSION: Uncomplicated chest tube placement as above. Blaine Jackson MD Catheter Change 07/27/15 0000 Signed Impressions: Service Date/Time: Monday, July 27, 2015 14:43 - CONCLUSION: Uncomplicated gastrostomy tube exchange as above. Blaine Jackson MD Chest CT 07/11/15 0000 Signed Impressions: Service Date/Time: Saturday, July 11, 2015 09:49 - CONCLUSION: Scattered patchy densities significantly improved from previous study. Tiny anterior right basilar pneumothorax. Right-sided chest tube in good position. Néstor Matamoros MD Head CT 06/18/15 417 Signed Impressions: Service Date/Time: June 19:31 - CONCLUSION: Diffuse atrophy unchanged. No acute intracranial findings. Kush Briscoe MD Abdomen/Pelvis CT 06/18/15 190 Signed Impressions: Service Date/Time: June 19:36 - CONCLUSION: 1. Chronic nonspecific urinary bladder wall thickening. Bladder collapsed with Valdez catheter in place. 2. Chronic bilateral mid to lower lung zone groundglass opacity. 3. Nonobstructing left renal calculus. 4. Distended rectum. Kush Briscoe MD Objective Remarks GENERAL: Cachectic patient with limbs contracted. Eyes open. SKIN: Warm and dry. HEAD: Normocephalic. EYES: No scleral icterus. No injection or drainage. NECK: 8.0 Distal XLT trach in place CARDIOVASCULAR: Regular rate and rhythm without murmurs, gallops, or rubs. RESPIRATORY: coarse breath sounds. GASTROINTESTINAL: Abdomen soft, non-tender, nondistended. MUSCULOSKELETAL: Contracted limbs. Procedures 07/26- PEG replacement 07/29- right pigtail catheter placement for new pneumothorax Medications and IVs Current Medications Medications (Trade) Dose Ordered Sig/Jassi Route Start Time Stop Time Status Last Admin (NS Flush) 2 ml UNSCH PRN IVF 06/18/15 21:30 02/01/16 03:04 (NS Flush) 2 ml BID IVF 06/19/15 09:00 02/09/16 23:10 (Tylenol 650 Mg/ 20 ml Liq) 650 mg Q6H PRN TUBE 06/18/15 21:30 02/07/16 17:24 (Tears Naturale Opth Soln) 1 drop TID EACH EYE 06/19/15 09:00 02/09/16 13:00 (Zofran Inj) 4 mg Q6H PRN IV 06/18/15 21:30 11/26/15 11:54 (Neurontin) 300 mg BID G-TUBE 06/19/15 09:00 02/09/16 23:07 (Lactinex) 1 tab TID PO 06/19/15 09:00 02/09/16 13:00 (Paxil) 20 mg DAILY G-TUBE 06/19/15 09:00 02/09/16 10:17 (Pill Splitter) 1 ea UNSCH PRN OTHER 06/19/15 03:30 06/28/15 09:35 (Prevacid Odt) 30 mg DAILY NG 07/08/15 09:00 02/09/16 10:14 (Morphine Inj) 2 mg Q3H PRN IV PUSH 07/28/15 00:45 02/10/16 01:34 (Lovenox Inj) 40 mg Q24H SQ 08/09/15 22:00 02/09/16 23:07 ([place] 5-325 Mg) 1 tab Q6H PRN PO 08/15/15 15:45 02/01/16 00:09 (Sublimaze Inj) 50 mcg Q2H PRN IV PUSH 08/15/15 15:45 01/15/16 13:10 (Santyl Oint) 1 applic DAILY TOP 08/21/15 09:00 02/09/16 09:00 (Levsin Liq) 0.125 mg Q4H PRN PO 09/06/15 11:00 02/03/16 07:31 (D50w (Vial) Inj) 25 ml UNSCH PRN IV PUSH 10/12/15 17:30 01/06/16 20:14 (Glucagon Inj) 1 mg UNSCH PRN OTHER 10/12/15 17:30 (NovoLIN R SUPPLEMENTAL SCALE) 1 Q6H SQ 10/12/15 18:00 02/09/16 06:21 (Proamatine) 2.5 mg BID G-TUBE 11/15/15 21:00 02/09/16 23:08 (Brethine Inj) 1 mg UNSCH PRN SQ 12/06/15 06:45 (Ativan Inj) 1 mg Q3HR PRN IVP 12/15/15 17:00 02/10/16 01:33 (Deltasone) 2.5 mg DAILY PO 12/23/15 09:00 02/09/16 09:00 (Free Water) 200 ml Q6HR G-TUBE 01/03/16 18:00 02/10/16 06:00 (KCl 40 Meq/30 ml Liq) 20 meq DAILY GT 01/08/16 17:00 02/09/16 10:09 (Urecholine) 10 mg Q8HR PO 01/13/16 22:00 02/10/16 07:00 (Sinemet 25-100 Mg) 1.5 tab QID GT 01/14/16 21:00 1/3/17 23:09 (ZyPREXA) 2.5 mg Q48H GT 01/21/16 21:00 02/08/16 22:56 (Peridex 0.12% Liq) 15 ml BID@08,20 MT 02/04/16 10:20 02/09/16 23:07 (KlonoPIN) 0.25 mg DAILY PO 02/10/16 09:00 Date of Insertion: Jan 27, 2016 A/P Problem List: (1) Sepsis due to urinary tract infection ICD Code: A41.9 Status: Resolved (2) Acute respiratory failure ICD Code: J96.00 Status: Resolved (3) Chronic respiratory failure ICD Code: J96.10 Status: Chronic (4) Parkinson disease ICD Code: G20 Status: Chronic (5) UTI (urinary tract infection) ICD Code: N39.0 Status: Acute (6) Encephalopathy ICD Code: G93.40 Status: Resolved Assessment and Plan S/P Septic shock Recurrent aspiration pneumonitis. Klebsiella and Pseudomonas.- previously new sputum growing gram negative rods Leukocytosis- afebrile- WBC up to 25,000 (on po prednisone tapered down to 2.5 mg daily) Candiduria- repeat C and s pending (specimen sent from [facility]- changed ) - S/P Zosyn. S/P Vancomycin and Levaquin course. CXR unchanged -clinically copious secretions requiring suctioning thick greenish sputum- culture- Pseudomonas -sputum specimen sent- growing gram negative rods - final C and s pending - urine C and S- Heena - diflucan x 5 days (start date 01/26) Tobramycin nebulization -ID signed off Chronic respiratory failure Chronic tracheostomy. Tolerated T piece. S/P recurrent right pneumothorax status post pigtail catheter removal. Currently on 35% oxygen 02/10/16. CXR stable. - pulmonology ff. continue bipap at night. - Suction secretions and Levsin as needed - on po steroids- Prednisone 2.5 mg po daily - Duo nebs 4 times a day and when necessary. S/p colistin nebs and Solumedrol. Metabolic Encephalopathy Parkinson's disease underlying. neuro consulted . CT head 06/18/15: - diffuse atrophy unchanged. No acute intracranial findings. - Continue cognitive efforts and pain meds. - Parkinson's medication increased by neurology. Have decreased antipsychotics to QOD dosing. Now off antipsychotics - continue to wean clonazepam, changed to 0.25 mg BID. Will change to daily 02/08. Malnutrition/protein calorie - moderate Status post PEG. Concern for hematemesis 12/05. GI evaluated pt. Gastroccult was negative and hemoglobin has been stable. Tolerating TFs 02/09. - 01/14. Switch to GJ tube due to aspiration. Consulted IR to evaluate GJ tube 01/19. - Current Colace/senna for bowel regimen. - continue PPI.- Prevacid. - 02/03: J tube replacement due to dysfunction Bilateral lower extremity Contractures Stage II DU. - Wound care team following. - Continue physical therapy. - turn q 2 hours. GI prophylaxis: PPI. Stool softener PRN constipation. DVT PPx: Lovenox Discharge Planning Awaiting clinical improvement. Problem Qualifiers (1) Chronic respiratory failure: Qualified Code: J96.10 - Chronic respiratory failure, unspecified whether with hypoxia or hypercapnia Salazar Santa DO Feb 10, 2016 11:25
[2016-02-10] MEDS: CHLORHEXIDINE GLUCONATE 0.12% 30 ML CUP MT SCH (12:00)
[2016-02-10 15:03] LABS: AUTOMATED NEUTROPHIL # 9.2 TH/MM3 (1.8-7.7); BASOPHIL # 0.1 TH/MM3 (0-0.2); BASOPHIL % 0.8 % (0.0-2.0); EOSINOPHIL # 0.3 TH/MM3 (0-0.4); EOSINOPHIL % 2.2 % (0.0-4.0); HEMATOCRIT 37.5 % (39.0-51.0); HEMO FLAGS DIFF FINAL; LYMPH % 11.7 % (9.0-44.0); LYMPHOCYTE # 1.3 TH/MM3 (1.0-4.8); MEAN CELL VOLUME 84.4 FL (80.0-100.0); MEAN CORPUSCULAR HEMOGLOBIN 26.8 PG (27.0-34.0); MEAN CORPUSCULAR HGB CONC 31.8 % (32.0-36.0); NEUT % 80.3 % (16.0-70.0); PLATELET COUNT 298 TH/MM3 (150-450); RED BLOOD COUNT 4.44 MIL/MM3 (4.50-5.90); RED CELL DISTRIBUTION WIDTH 14.9 % (11.6-17.2); WHITE BLOOD COUNT 11.5 TH/MM3 (4.0-11.0)
[2016-02-10 15:24] LABS: ANION GAP 9 MEQ/L (5-15); AST (GOT) 27 U/L (15-37); BICARBONATE 26.5 MEQ/L (21.0-32.0); BLOOD UREA NITROGEN 25 MG/DL (7-18); CHLORIDE 107 MEQ/L (98-107); POTASSIUM 5.4 MEQ/L (3.5-5.1); SODIUM (NA) 142 MEQ/L (136-145)
[2016-02-10 15:28] LABS: ALKALINE PHOSPHATASE 55 U/L (45-117); ALT (GPT) 10 U/L (12-78); GLOMERULAR FILTRATION RATE 144 ML/MIN (>89); TOTAL BILIRUBIN ADULT 0.5 MG/DL (0.2-1.0)
--- NOTE | 2016-02-10 20:27 | HHI.PR ---
Subjective Remarks Seems more congested and tachypneic. and 0n a T bar FIO2 35 % .On Bipap at HS. On tube feeds at 40 CC . Objective Vital Signs Date Time Temp Pulse Resp B/P Pulse Ox O2 Delivery O2 Flow Rate FiO2 02/10/16 19:46 90 30 02/10/16 19:18 94 T-piece 6.00 35 02/10/16 16:00 99.6 107 20 118/78 95 02/10/16 11:55 99.6 101 20 111/71 94 02/10/16 09:00 98 T-Piece 6.00 28 02/10/16 08:52 96 02/10/16 08:52 96 T-piece 35 02/10/16 07:15 97.9 95 20 79/50 97 02/10/16 05:20 98.8 90 20 90/70 98 02/10/16 03:33 97 02/10/16 01:42 19 02/10/16 00:19 97 30 02/10/16 00:04 97.5 87 20 142/78 96 02/09/16 21:40 98 T-Piece 6.00 28 02/09/16 20:51 98.7 97 20 114/46 95 I/O 02/09/16 02/09/16 02/09/16 02/10/16 02/10/16 02/10/16 07:00 15:00 23:00 07:00 15:00 23:00 Output Total 250 ml 450 ml 100 ml 750 ml Balance -250 ml -450 ml -100 ml -750 ml Output Urine Total 250 ml 450 ml 100 ml 750 ml # Bowel Movements 2 0 1 0 Result Diagram: 02/10/16 1443 02/10/16 1443 Objective Remarks This is a thin white male who is , awake with a trach tube in place. HEENT: Pupils are equal and reactive to light. CHEST:Decreased breath sounds,with Bi basal crackles and wheezes . CARDIOVASCULAR: S1 and S2 is normal.No murmur. ABDOMEN: Soft, nondistended. BS +. He has a PEG tube in place. EXTREMITIES: Contractures.muscle wasting.Moved Right hand. NEURO: Awake and has weak extremities. Skin is warm. Assessment and Plan Assessment and Plan IMPRESSION 1. Chronic Respiratory failure. 2. Sepsis, Aspiration. Improved 3. Left basal Pneumonia, Resolved 4. Tracheobronchitis 5. Parkinson's disease 6. Dementia. 7. Severe Deconditioning. Plan : 1. Continue on Bipap 5/15, FIo2 30 % at 10 pm to 7 am. 2. Nebs Bid , duoneb. 3. Cont tube feeds Jevity at 45 CC 4. T Bar 35 % daytime. 5. Levsin .25 mg tid prn for Secretions 6. Cont Trach toilet and lavage. 7. Stop Jarvis nebs . 8. CBC,BMP in am 1 Darren Kiser MD Feb 10, 2016 20:27
[2016-02-10] MEDS: ENOXAPARIN SODIUM 40 MG/0.4 ML SYRINGE SQ SCH (23:54)
[2016-02-10] MEDS: OLANZapine 2.5 MG TAB GT SCH (23:55)
[2016-02-11] VITALS (8 sets, daily range): BP systolic 99–127; BP diastolic 56–81; PULSE 67–104; RESP 18–34; TEMP 95.3–98.8; O2SAT 95–100
[2016-02-11] MEDS: CHLORHEXIDINE GLUCONATE 0.12% 30 ML CUP MT SCH ×3 (00:02→22:55)
[2016-02-11] MEDS: FREE WATER G-TUBE SCH ×3 (06:00→18:00)
[2016-02-11] MEDS: INSULIN NovoLIN REGULAR SUPPLEMENTAL SCALE SQ SCH ×2 (06:00→12:00)
[2016-02-11] MEDS: BETHANECHOL CHL 10 MG TAB PO SCH ×3 (06:06→23:00)
[2016-02-11 08:06] LABS: AUTOMATED NEUTROPHIL # 5.5 TH/MM3 (1.8-7.7); BASOPHIL # 0.1 TH/MM3 (0-0.2); EOSINOPHIL # 0.4 TH/MM3 (0-0.4); EOSINOPHIL % 4.9 % (0.0-4.0); HEMATOCRIT 36.2 % (39.0-51.0); HEMO FLAGS DIFF FINAL; LYMPH % 20.2 % (9.0-44.0); LYMPHOCYTE # 1.7 TH/MM3 (1.0-4.8); MEAN CELL VOLUME 85.1 FL (80.0-100.0); MEAN CORPUSCULAR HEMOGLOBIN 27.1 PG (27.0-34.0); MEAN CORPUSCULAR HGB CONC 31.8 % (32.0-36.0); MONO % 9.2 % (0.0-8.0); NEUT % 64.7 % (16.0-70.0); PLATELET COUNT 239 TH/MM3 (150-450); RED BLOOD COUNT 4.25 MIL/MM3 (4.50-5.90); WHITE BLOOD COUNT 8.5 TH/MM3 (4.0-11.0)
[2016-02-11 08:53] LABS: BICARBONATE 30.5 MEQ/L (21.0-32.0)
[2016-02-11] MEDS: SODIUM CHLORIDE 0.9% FLUSH 5 ML FLUSH IVF SCH ×2 (09:00→23:05)
[2016-02-11] MEDS: COLLAGENASE OINT 30 GM TUBE TOP SCH (09:00)
[2016-02-11] MEDS: LACTOBACILLUS ACIDOPHILUS TAB PO SCH ×3 (09:00→18:00)
[2016-02-11] MEDS: ARTIFICIAL TEARS OPTH SOLN 15 ML BTL EACH EYE SCH ×3 (09:00→18:00)
[2016-02-11] MEDS: RESP: TOBRAMYCIN SULFATE 80 MG/2 ML NEB NEB SCH (09:03)
--- NOTE | 2016-02-11 11:25 | HHI.PR ---
Subjective Remarks The patient was lying on his right side in bed. He appeared to be comfortable. He would open his eyes for the examination. Objective Vitals Vital Signs Date Time Temp Pulse Resp B/P Pulse Ox O2 Delivery O2 Flow Rate FiO2 02/11/16 09:03 100 T-piece 6.00 28 02/11/16 08:31 97.9 67 21 99/58 99 02/11/16 05:13 99 30 02/11/16 04:20 95.3 68 19 102/56 98 02/10/16 23:55 95.7 80 19 106/62 99 02/10/16 22:00 T-Piece 6.00 30 02/10/16 20:43 99.6 97 43 142/73 95 02/10/16 19:46 90 30 02/10/16 19:18 94 T-piece 6.00 35 02/10/16 16:00 99.6 107 20 118/78 95 02/10/16 11:55 99.6 101 20 111/71 94 I/O 02/10/16 02/10/16 02/10/16 02/11/16 02/11/16 02/11/16 07:00 15:00 23:00 07:00 15:00 23:00 Intake Total 720 ml 433 ml Output Total 100 ml 750 ml 500 ml Balance -100 ml -750 ml 720 ml -67 ml Tube Feeding 520 ml 233 ml Other 200 ml 200 ml Output Urine Total 100 ml 750 ml 500 ml # Bowel Movements 1 0 Result Diagram: 02/11/16 0752 02/11/16 0752 Imaging Last Impressions Chest X-Ray 02/10/16 0000 Signed Impressions: Service Date/Time: Wednesday, February 10, 2016 09:08 - CONCLUSION: Stable chest. Milo Jackson MD FACR Tube Change 02/03/16 0000 Signed Impressions: Service Date/Time: Wednesday, February 03, 2016 17:13 - CONCLUSION: Uncomplicated gastrojejunostomy tube exchange as above. This is a recurrent occlusion with this tube. We will institute Q8 hour flushing of the tube with warm water. Tai Taylor Jr., MD Gastrostomy Tube Change 01/15/16 0000 Signed Impressions: Service Date/Time: Friday, January 15, 2016 12:28 - CONCLUSION: Successful GJ tube exchange as above. Scott Goode MD Abdomen X-Ray 01/12/16 1628 Signed Impressions: Service Date/Time: Tuesday, January 12, 2016 17:35 - CONCLUSION: No evidence of obstruction or free air. Reyes Jewell MD Abdomen Ultrasound 12/06/15 0000 Signed Impressions: Service Date/Time: Sunday, December 06, 2015 17:42 - CONCLUSION: 1. The gallbladder is unremarkable with no evidence of cholelithiasis. 2. Simple cyst in the left kidney. 3. Mild pyelocaliectasis in the right kidney. Salazar Thurman MD Upper Extremity Ultrasound 10/13/15 0000 Signed Impressions: Service Date/Time: Tuesday, October 13, 2015 09:51 - CONCLUSION: 1. No evidence of deep venous thrombosis. John Anderson MD Renal Ultrasound 10/07/15 0000 Signed Impressions: Service Date/Time: Wednesday, October 07, 2015 18:29 - CONCLUSION: 1. No acute findings. 3.6 cm left renal cyst. Valdez catheter in bladder. Amaury Ellsworth MD Tunnelled Chest Tube Removal 08/05/15 1100 Signed Impressions: Service Date/Time: Wednesday, August 05, 2015 11:00 - CONCLUSION: Uncomplicated chest tube removal. Blaine Jackson MD Chest Tube Change 07/31/15 0000 Signed Impressions: Service Date/Time: Friday, July 31, 2015 14:34 - CONCLUSION: Uncomplicated reposition of previously placed chest tube as above. Blaine Jackson MD Chest Tube Insertion 07/30/15 0000 Signed Impressions: Service Date/Time: July 14:50 - CONCLUSION: Uncomplicated chest tube placement as above. Blaine Jackson MD Catheter Change 07/27/15 0000 Signed Impressions: Service Date/Time: Monday, July 27, 2015 14:43 - CONCLUSION: Uncomplicated gastrostomy tube exchange as above. Blaine Jackson MD Chest CT 07/11/15 0000 Signed Impressions: Service Date/Time: Saturday, July 11, 2015 09:49 - CONCLUSION: Scattered patchy densities significantly improved from previous study. Tiny anterior right basilar pneumothorax. Right-sided chest tube in good position. Néstor Matamoros MD Head CT 06/18/15 0133 Signed Impressions: Service Date/Time: June 19:31 - CONCLUSION: Diffuse atrophy unchanged. No acute intracranial findings. Kush Briscoe MD Abdomen/Pelvis CT 06/18/15 190 Signed Impressions: Service Date/Time: June 19:36 - CONCLUSION: 1. Chronic nonspecific urinary bladder wall thickening. Bladder collapsed with Valdez catheter in place. 2. Chronic bilateral mid to lower lung zone groundglass opacity. 3. Nonobstructing left renal calculus. 4. Distended rectum. Kush Briscoe MD Objective Remarks GENERAL: Cachectic patient with limbs contracted. Eyes open. SKIN: Warm and dry. HEAD: Normocephalic. EYES: No scleral icterus. No injection or drainage. NECK: 8.0 Distal XLT trach in place CARDIOVASCULAR: Regular rate and rhythm without murmurs, gallops, or rubs. RESPIRATORY: coarse breath sounds. GASTROINTESTINAL: Abdomen soft, non-tender, nondistended. MUSCULOSKELETAL: Contracted limbs. Wound on lower back currently bandaged. Procedures 07/26- PEG replacement 07/29- right pigtail catheter placement for new pneumothorax Medications and IVs Current Medications Medications (Trade) Dose Ordered Sig/Jassi Route Start Time Stop Time Status Last Admin (NS Flush) 2 ml UNSCH PRN IVF 06/18/15 21:30 02/01/16 03:04 (NS Flush) 2 ml BID IVF 06/19/15 09:00 02/10/16 23:58 (Tylenol 650 Mg/ 20 ml Liq) 650 mg Q6H PRN TUBE 06/18/15 21:30 02/07/16 17:24 (Tears Naturale Opth Soln) 1 drop TID EACH EYE 06/19/15 09:00 02/10/16 18:00 (Zofran Inj) 4 mg Q6H PRN IV 06/18/15 21:30 11/26/15 11:54 (Neurontin) 300 mg BID G-TUBE 06/19/15 09:00 02/10/16 23:56 (Lactinex) 1 tab TID PO 06/19/15 09:00 02/10/16 18:00 (Paxil) 20 mg DAILY G-TUBE 06/19/15 09:00 02/10/16 09:00 (Pill Splitter) 1 ea UNSCH PRN OTHER 06/19/15 03:30 06/28/15 09:35 (Prevacid Odt) 30 mg DAILY NG 07/08/15 09:00 02/10/16 09:00 (Morphine Inj) 2 mg Q3H PRN IV PUSH 07/28/15 00:45 02/10/16 01:34 (Lovenox Inj) 40 mg Q24H SQ 08/09/15 22:00 02/10/16 23:54 (Montgomery 5-325 Mg) 1 tab Q6H PRN PO 08/15/15 15:45 02/01/16 00:09 (Sublimaze Inj) 50 mcg Q2H PRN IV PUSH 08/15/15 15:45 01/15/16 13:10 (Santyl Oint) 1 applic DAILY TOP 08/21/15 09:00 02/10/16 09:00 (Levsin Liq) 0.125 mg Q4H PRN PO 09/06/15 11:00 02/03/16 07:31 (D50w (Vial) Inj) 25 ml UNSCH PRN IV PUSH 10/12/15 17:30 01/06/16 20:14 (Glucagon Inj) 1 mg UNSCH PRN OTHER 10/12/15 17:30 (NovoLIN R SUPPLEMENTAL SCALE) 1 Q6H SQ 10/12/15 18:00 02/09/16 06:21 (Proamatine) 2.5 mg BID G-TUBE 11/15/15 21:00 02/10/16 23:56 (Brethine Inj) 1 mg UNSCH PRN SQ 12/06/15 06:45 (Ativan Inj) 1 mg Q3HR PRN IVP 12/15/15 17:00 02/10/16 01:33 (Deltasone) 2.5 mg DAILY PO 12/23/15 09:00 02/10/16 09:00 (Free Water) 200 ml Q6HR G-TUBE 01/03/16 18:00 02/11/16 06:00 (KCl 40 Meq/30 ml Liq) 20 meq DAILY GT 01/08/16 17:00 02/10/16 09:00 (Urecholine) 10 mg Q8HR PO 01/13/16 22:00 02/11/16 06:06 (Sinemet 25-100 Mg) 1.5 tab QID GT 01/14/16 21:00 02/10/16 23:55 (ZyPREXA) 2.5 mg Q48H GT 01/21/16 21:00 02/10/16 23:55 (Peridex 0.12% Liq) 15 ml BID@08,20 MT 02/04/16 10:20 02/11/16 00:02 (KlonoPIN) 0.25 mg DAILY PO 02/10/16 09:00 02/10/16 09:00 Date of Insertion: Jan 27, 2016 A/P Problem List: (1) Sepsis due to urinary tract infection ICD Code: A41.9 Status: Resolved (2) Acute respiratory failure ICD Code: J96.00 Status: Resolved (3) Chronic respiratory failure ICD Code: J96.10 Status: Chronic (4) Parkinson disease ICD Code: G20 Status: Chronic (5) UTI (urinary tract infection) ICD Code: N39.0 Status: Acute (6) Encephalopathy ICD Code: G93.40 Status: Resolved Assessment and Plan S/P Septic shock Recurrent aspiration pneumonitis. Klebsiella and Pseudomonas.- previously new sputum growing gram negative rods Leukocytosis- afebrile- WBC up to 25,000 (on po prednisone tapered down to 2.5 mg daily) Candiduria- repeat C and s pending (specimen sent from new valdez- changed ) - S/P Zosyn. S/P Vancomycin and Levaquin course. CXR unchanged -clinically copious secretions requiring suctioning thick greenish sputum- culture- Pseudomonas -sputum specimen sent- growing gram negative rods - final C and s pending - urine C and S- Heena - diflucan x 5 days (start date 01/26) Tobramycin nebulization d/c 02/11/16. -ID signed off Chronic respiratory failure Chronic tracheostomy. Tolerated T piece. S/P recurrent right pneumothorax status post pigtail catheter removal. Currently on 35% oxygen 02/10/16. CXR stable. - pulmonology ff. continue bipap at night. - Suction secretions and Levsin as needed - on po steroids- Prednisone 2.5 mg po daily - Duo nebs 4 times a day and when necessary. S/p colistin nebs and Solumedrol. Metabolic Encephalopathy Parkinson's disease underlying. neuro consulted . CT head 06/18/15: - diffuse atrophy unchanged. No acute intracranial findings. - Continue cognitive efforts and pain meds. - Parkinson's medication increased by neurology. Have decreased antipsychotics to QOD dosing. Now off antipsychotics - continue to wean clonazepam, changed to 0.25 mg BID. Changed to daily 02/09/16. Malnutrition/protein calorie - moderate Status post PEG. Concern for hematemesis 12/05. GI evaluated pt. Gastroccult was negative and hemoglobin has been stable. Tolerating TFs 02/10. - Current Colace/senna for bowel regimen. - continue PPI.- Prevacid. - 02/03: J tube replacement due to dysfunction. Bilateral lower extremity Contractures Stage II DU. - Wound care team following. - Continue physical therapy. - turn q 2 hours. GI prophylaxis: PPI. Stool softener PRN constipation. DVT PPx: Lovenox Discharge Planning Awaiting clinical improvement. Problem Qualifiers (1) Chronic respiratory failure: Qualified Code: J96.10 - Chronic respiratory failure, unspecified whether with hypoxia or hypercapnia Salazar Santa DO Feb 11, 2016 11:25
[2016-02-11] MEDS: CARBIDOPA/LEVODOPA 25 MG/100 MG TAB GT SCH ×4 (12:11→23:00)
[2016-02-11] MEDS: MIDODRINE 5 MG TAB G-TUBE SCH ×2 (12:12→23:00)
[2016-02-11] MEDS: clonazePAM 0.5 MG TAB PO SCH (12:13)
[2016-02-11] MEDS: predniSONE 5 MG TAB PO SCH (12:13)
[2016-02-11] MEDS: GABAPENTIN 300 MG CAP G-TUBE SCH ×2 (12:13→22:55)
[2016-02-11] MEDS: LANSOPRAZOLE SOLUTAB 30 MG TAB NG SCH (12:14)
[2016-02-11] MEDS: PARoxetine HCL 20 MG TAB G-TUBE SCH (12:14)
[2016-02-11] MEDS: POTASSIUM CL 40 MEQ/30 ML LIQ UDC GT SCH (12:14)
--- NOTE | 2016-02-11 15:10 | HHI.HCPN ---
Reason for visit a. To assist with evaluation and management of symptoms including: pain, malnutrition, dyspnea. b. To assist medical decision maker(s) with: better understanding of current medical conditions; weighing benefits/burdens of medical treatment options; making medical treatment decisions. . (ALOK JONES) Subjective/Interval History Patient seen and examined in room. CARINA De La Torre at bedside. Patient appears with labored respirations at rest on oxygen via t-piece. He is diaphoretic, cheeks are flushed. Non-verbal. Eyes closed. Does not respond to voice or exam. Afebrile. Tachycardic. Oxygen sat 73%, increased to 90% quickly. 102/59. LBM 02/09. Tolerating tube feeding. Right hand fingers purple in color, tourniquet in place - removed tourniquet with improved coloration, no skin breakdown noted. Labs and recent chest x-ray stable. Nursing pain level scores are "0-2" in the past 24 hours. Patient has only had 1 dose of PRN Morphine 2mg IV in the past 24 hours. In review of case management notes [facility] have declined pt. . Family/friend interactions Attempted to call daughter Radha to provide medical update. No answer, left message. . (ALOK JONES) Advance Directives Living Will: Never completed Health Care Surrogate: Copy in medical record Durable Power of Licensed Marriage And Family Therapist: Never completed (ALOK JONES) Advance Directive Specifics Date completed: Patient visited Scott Mack, Licensed Marriage And Family Therapist in March and again in November 2014. The patient was encouraged to complete Advance directive documents but never did them. Dr. Pickard personally called Mr. Mack ([phone]) to check for advance directives. Health Care Surrogate(s): The patient completed a health care surrogate document dated 09/02/14 desigating his friend Bola Nolasco as surrogate. Mr. Nolasco was not aware of this and has declined serving in that capacity. The patient has an adult daughter -- Radha Foreman who is willing to serve as health care proxy decision maker. Patient's mother, Teresa is aware. Significant change in goals: NO CODE. Desires continued aggressive care. . (ALOK JONES) Objective Vital Signs Date Time Temp Pulse Resp B/P Pulse Ox O2 Delivery O2 Flow Rate FiO2 02/11/16 12:43 98.8 104 34 102/59 95 02/11/16 12:41 98.8 104 34 102/59 95 02/11/16 09:03 100 T-piece 6.00 28 02/11/16 08:31 97.9 67 21 99/58 99 02/11/16 05:13 99 30 02/11/16 04:20 95.3 68 19 102/56 98 02/10/16 23:55 95.7 80 19 106/62 99 02/10/16 22:00 T-Piece 6.00 30 02/10/16 20:43 99.6 97 43 142/73 95 02/10/16 19:46 90 30 02/10/16 19:18 94 T-piece 6.00 35 02/10/16 16:00 99.6 107 20 118/78 95 Intake & Output 02/11/16 02/11/16 07:00 19:00 Intake Total 1153 ml Output Total 500 ml Balance 653 ml Tube Feeding 753 ml Other 400 ml Output Urine Total 500 ml Physical Exam CONSTITUTIONAL/GENERAL: This is a thin, pale, contracted, chronically ill appearing male on mech vent to trach. Unresponsive. TUBES/LINES/DRAINS: Trach, valdez cath, PEG tube, scd's SKIN: Hands purple on right hand, improved after removal of tourniquet. Sacral wound, not visualized today. Diaphoretic. NECK: Tracheostomy to t-piece. CARDIOVASCULAR: Regular rate and rhythm without murmurs, gallops, or rubs. No JVD. Peripheral pulses symmetric. RESPIRATORY/CHEST: Mildly labored respirations.Breath sounds equal bilaterally and diminished at bases. GASTROINTESTINAL: Abdomen soft, non-tender, nondistended. GENITOURINARY: Without palpable bladder distension. catheter in place. MUSCULOSKELETAL: Contractures of bilateral upper and lower extremities appear more rigid. No mottling. NEUROLOGICAL: Eyes closed. Unresponsive. No spontaneous movements seen. PSYCHIATRIC: Eyes closed. . (ALOK JONES) Diagnostic Tests Laboratory Laboratory Tests Test 02/10/16 02/11/16 14:43 07:52 White Blood Count 11.5 TH/MM3 8.5 TH/MM3 (4.0-11.0) (4.0-11.0) Red Blood Count 4.44 MIL/MM3 4.25 MIL/MM3 (4.50-5.90) (4.50-5.90) Hemoglobin 11.9 GM/DL 11.5 GM/DL (13.0-17.0) (13.0-17.0) Hematocrit 37.5 % 36.2 % (39.0-51.0) (39.0-51.0) Mean Corpuscular Volume 84.4 FL 85.1 FL (80.0-100.0) (80.0-100.0) Mean Corpuscular Hemoglobin 26.8 PG 27.1 PG (27.0-34.0) (27.0-34.0) Mean Corpuscular Hemoglobin 31.8 % 31.8 % Concent (32.0-36.0) (32.0-36.0) Red Cell Distribution Width 14.9 % 15.0 % (11.6-17.2) (11.6-17.2) Platelet Count 298 TH/MM3 239 TH/MM3 (150-450) (150-450) Mean Platelet Volume 9.9 FL 9.6 FL (7.0-11.0) (7.0-11.0) Neutrophils (%) (Auto) 80.3 % 64.7 % (16.0-70.0) (16.0-70.0) Lymphocytes (%) (Auto) 11.7 % 20.2 % (9.0-44.0) (9.0-44.0) Monocytes (%) (Auto) 5.0 % (0.0-8.0) 9.2 % (0.0-8.0) Eosinophils (%) (Auto) 2.2 % (0.0-4.0) 4.9 % (0.0-4.0) Basophils (%) (Auto) 0.8 % (0.0-2.0) 1.0 % (0.0-2.0) Neutrophils # (Auto) 9.2 TH/MM3 5.5 TH/MM3 (1.8-7.7) (1.8-7.7) Lymphocytes # (Auto) 1.3 TH/MM3 1.7 TH/MM3 (1.0-4.8) (1.0-4.8) Monocytes # (Auto) 0.6 TH/MM3 0.8 TH/MM3 (0-0.9) (0-0.9) Eosinophils # (Auto) 0.3 TH/MM3 0.4 TH/MM3 (0-0.4) (0-0.4) Basophils # (Auto) 0.1 TH/MM3 0.1 TH/MM3 (0-0.2) (0-0.2) CBC Comment DIFF FINAL DIFF FINAL Differential Comment Sodium Level 142 MEQ/L 142 MEQ/L (136-145) (136-145) Potassium Level 5.4 MEQ/L 4.0 MEQ/L (3.5-5.1) (3.5-5.1) Chloride Level 107 MEQ/L 107 MEQ/L (98-107) (98-107) Carbon Dioxide Level 26.5 MEQ/L 30.5 MEQ/L (21.0-32.0) (21.0-32.0) Anion Gap 9 MEQ/L (5-15) 5 MEQ/L (5-15) Blood Urea Nitrogen 25 MG/DL (7-18) 25 MG/DL (7-18) Creatinine 0.59 MG/DL 0.48 MG/DL (0.60-1.30) (0.60-1.30) Estimat Glomerular Filtration 144 ML/MIN 182 ML/MIN Rate (>89) (>89) Random Glucose 90 MG/DL 125 MG/DL (74-106) (74-106) Lactic Acid Level 2.1 mmol/L (0.4-2.0) Calcium Level 9.5 MG/DL 9.2 MG/DL (8.5-10.1) (8.5-10.1) Total Bilirubin 0.5 MG/DL (0.2-1.0) Aspartate Amino Transf 27 U/L (15-37) (AST/SGOT) Alanine Aminotransferase 10 U/L (12-78) (ALT/SGPT) Alkaline Phosphatase 55 U/L (45-117) Total Protein 7.3 GM/DL (6.4-8.2) Albumin 3.2 GM/DL (3.4-5.0) (ALOK JONES-Wen) Result Diagram: 02/11/16 0752 02/11/16 0752 Imaging Last Impressions Chest X-Ray 02/10/16 0000 Signed Impressions: Service Date/Time: Wednesday, February 10, 2016 09:08 - CONCLUSION: Stable chest. Milo Jackson MD FACR Tube Change 02/03/16 0000 Signed Impressions: Service Date/Time: Wednesday, February 03, 2016 17:13 - CONCLUSION: Uncomplicated gastrojejunostomy tube exchange as above. This is a recurrent occlusion with this tube. We will institute Q8 hour flushing of the tube with warm water. Tai Taylor Jr., MD Gastrostomy Tube Change 01/15/16 0000 Signed Impressions: Service Date/Time: Friday, January 15, 2016 12:28 - CONCLUSION: Successful GJ tube exchange as above. Scott Goode MD Abdomen X-Ray 01/12/16 1628 Signed Impressions: Service Date/Time: Tuesday, January 12, 2016 17:35 - CONCLUSION: No evidence of obstruction or free air. Reyes Jewell MD Abdomen Ultrasound 12/06/15 0000 Signed Impressions: Service Date/Time: Sunday, December 06, 2015 17:42 - CONCLUSION: 1. The gallbladder is unremarkable with no evidence of cholelithiasis. 2. Simple cyst in the left kidney. 3. Mild pyelocaliectasis in the right kidney. Salazar Thurman MD Upper Extremity Ultrasound 10/13/15 0000 Signed Impressions: Service Date/Time: Tuesday, October 13, 2015 09:51 - CONCLUSION: 1. No evidence of deep venous thrombosis. John Anderson MD Renal Ultrasound 10/07/15 0000 Signed Impressions: Service Date/Time: Wednesday, October 07, 2015 18:29 - CONCLUSION: 1. No acute findings. 3.6 cm left renal cyst. Valdez catheter in bladder. Amaury Ellsworth MD Tunnelled Chest Tube Removal 08/05/15 1100 Signed Impressions: Service Date/Time: Wednesday, August 05, 2015 11:00 - CONCLUSION: Uncomplicated chest tube removal. Blaine Jackson MD Chest Tube Change 07/31/15 0000 Signed Impressions: Service Date/Time: Friday, July 31, 2015 14:34 - CONCLUSION: Uncomplicated reposition of previously placed chest tube as above. Blaine Jackson MD Chest Tube Insertion 07/30/15 0000 Signed Impressions: Service Date/Time: July 14:50 - CONCLUSION: Uncomplicated chest tube placement as above. Blaine Jackson MD Catheter Change 07/27/15 0000 Signed Impressions: Service Date/Time: Monday, July 27, 2015 14:43 - CONCLUSION: Uncomplicated gastrostomy tube exchange as above. Blaine Jackson MD Chest CT 07/11/15 0000 Signed Impressions: Service Date/Time: Saturday, July 11, 2015 09:49 - CONCLUSION: Scattered patchy densities significantly improved from previous study. Tiny anterior right basilar pneumothorax. Right-sided chest tube in good position. Néstor Matamoros MD Head CT 06/18/151902 Signed Impressions: Service Date/Time: , June 18, 2015 19:31 - CONCLUSION: Diffuse atrophy unchanged. No acute intracranial findings. Kush Briscoe MD Abdomen/Pelvis CT 06/18/151902 Signed Impressions: Service Date/Time: June 19:36 - CONCLUSION: 1. Chronic nonspecific urinary bladder wall thickening. Bladder collapsed with Valdez catheter in place. 2. Chronic bilateral mid to lower lung zone groundglass opacity. 3. Nonobstructing left renal calculus. 4. Distended rectum. Kush Briscoe MD . Procedures * Mechanical ventilation * Chest tube placement on right 07/07/15 * Chest tube removal 07/17/15 . (ALOK JONES SHANK ARCHER-C) Assessment and Plan Disease Oriented Problem List: (1) Acute respiratory failure Comment: 10/13/15 - Halicat for hypotension and tube feeding coming from trach. Daughter has since elected no mech vent. . (2) Chronic respiratory failure (3) Pneumonia Comment: recurrent aspiration. . (4) UTI (urinary tract infection) Comment: . (5) Parkinson disease (6) Moderate malnutrition Symptom Scale: (1) Pain 0-10 Scale: Unable to quantify (Pt unable to quantify, nurse reports level 1) Comment: Sources of pain might include wound, prolonged bedbound status, contractures, restraints, valdez, vascular access catheters. Appears comfortable on current regimen. ,l (2) Dyspnea 0-10 Scale: Unable to quantify Comment: On t-piece. . (3) Malnutrition 0-10 Scale: Unable to quantify Comment: On tube feeding. . (4) Encephalopathy 0-10 Scale: Unable to quantify Comment: Remains unresponsive. Pertinent Non-Medical Issues Psychosocial: alf skilled nursing resident. 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 Severe dementia. Daughter, mother, and brother are involved. Spiritual: [employer]ze. Has been a member for the [employer] [employer] [facility] and members have provided both community support and spiritual support in the past. Legal: No advance directives. Daughter (Radha Foreman) is legal proxy and lives 4 hours away. She can be quite difficult to contact by phone. Ethical issues impacting care: None. . Important Contacts * Radha Foreman (daughter and proxy) [phone] * Teresa Perea (mother -- lives in [place]) [phone] . Prognosis Patient has end stage Parkinson's with end stage dementia. He is a terminal [facility] resident and has required multiple hospitalizations for sepsis. He is a chronic trach/PEG tube patient with contractures and skin breakdown. Should family continue to want aggressive care, he will continue to go back and forth from facility to hospital until such time that we are no longer able to overcome the sepsis. Patient is hospice eligible whenever family is ready to transition to "comfort measures only." . Code Status: No Code (No cardiac resuscitation, shock, ACLS or mech vent. ) Plan * Decision making: Patient is incapacitated and will not regain capacity. There is no designated health care surrogate. Daughter, Radha Foreman, is legal proxy under [place] statutes but can be hard to contact at times. * NO CODE - No cardiac resuscitation, shock, ACLS or mech vent, No Pressors. NO EGD for now. * 02/11/16: Left message for Radha hunter to provide medical update. Awaiting return call. * Pain: Sources of pain are unclear as patient in non communicative, but would include prolonged bedbound status; tubes and lines; contractures; wound; etc. Current regimen appears to adequate . No further recommendations at this time. * Dyspnea: Dyspnea due to aspiration pneumonia. Has previously been challenging to get off vent. * Malnutrition: Tolerating tube feeds at 30cc/hr, increased aspiration noted when above 30cc/hr per nursing staff, albumin remains low. * Palliative care will continue to follow. . . (ALOK JONES) Attestation To help prompt me to consider important information that might be impacting today's encounter and assessment, information from prior notes written by myself or my colleagues may have been "brought forward" into today's note. My signature on this note, however, is an attestation that I personally performed the exam, history, and/or decision-making noted today, and, unless otherwise indicated, the interactions with patient, family, and staff as well as the review of records all occurred today. I also attest that the listed assessment and stated plan reflect my best clinical judgment today based on the combination of historical information, prior notes, and today's exam/ interactions. When time spent is documented, it refers only to time spent today by the signer, or if indicated, combined time spent today by collaborating physician/nurse practitioner. (ALOK JONES) Collaborating MD Comments Chart reviewed. Case discussed with palliative care SHANK ARCHER. Above SHANK ARCHER note reviewed and I concur. . (Pascual Pickard MD) ALOK JONES Feb 11, 2016 15:10 Pascual Pickard MD Mar 26, 2016 14:16
--- NOTE | 2016-02-11 18:00 | HHI.PR ---
Subjective Remarks Seems better today, and 0n a T bar FIO2 35 % .On Bipap at HS. On tube feeds at 40 CC . Sat 97. Objective Vital Signs Date Time Temp Pulse Resp B/P Pulse Ox O2 Delivery O2 Flow Rate FiO2 02/11/16 16:00 97.6 90 31 126/81 99 02/11/16 12:43 98.8 104 34 102/59 95 02/11/16 12:41 98.8 104 34 102/59 95 02/11/16 09:03 100 T-piece 6.00 28 02/11/16 08:31 97.9 67 21 99/58 99 02/11/16 05:13 99 30 02/11/16 04:20 95.3 68 19 102/56 98 02/10/16 23:55 95.7 80 19 106/62 99 02/10/16 22:00 T-Piece 6.00 30 02/10/16 20:43 99.6 97 43 142/73 95 02/10/16 19:46 90 30 02/10/16 19:18 94 T-piece 6.00 35 I/O 02/10/16 02/10/16 02/10/16 02/11/16 02/11/16 02/11/16 07:00 15:00 23:00 07:00 15:00 23:00 Intake Total 720 ml 433 ml Output Total 100 ml 750 ml 500 ml 200 ml Balance -100 ml -750 ml 720 ml -67 ml -200 ml Tube Feeding 520 ml 233 ml Other 200 ml 200 ml Output Urine Total 100 ml 750 ml 500 ml 200 ml # Bowel Movements 1 0 1 Result Diagram: 02/11/16 0752 02/11/16 0752 Objective Remarks This is a thin white male who is , awake with a trach tube in place. HEENT: Pupils are equal and reactive to light. CHEST:Decreased breath sounds,with Bi basal crackles . CARDIOVASCULAR: S1 and S2 is normal.No murmur. ABDOMEN: Soft, nondistended. BS +. He has a PEG tube in place. EXTREMITIES: Contractures.muscle wasting. NEURO: Awake and has weak extremities. Skin is warm. Assessment and Plan Assessment and Plan IMPRESSION 1. Chronic Respiratory failure. 2. Sepsis, Aspiration. Improved 3. Left basal Pneumonia, Resolved 4. Tracheobronchitis 5. Parkinson's disease 6. Dementia. 7. Severe Deconditioning. Plan : 1. Continue on Bipap 06/20, FIo2 30 % at 10 pm to 7 am. 2. Nebs Bid , duoneb. 3. Cont tube feeds Jevity at 45 CC 4. T Bar 35 % daytime. 5. Levsin .25 mg tid prn for Secretions 6. Cont Trach toilet and lavage. 7. Postural drainage tid 1 Darren Kiser MD Feb 11, 2016 18:00
[2016-02-11] MEDS: ENOXAPARIN SODIUM 40 MG/0.4 ML SYRINGE SQ SCH (23:21)
[2016-02-12] VITALS (12 sets, daily range): BP systolic 98–137; BP diastolic 67–87; PULSE 67–98; RESP 16–26; TEMP 96.3–101; O2SAT 95–98
[2016-02-12] MEDS: FREE WATER G-TUBE SCH ×5 (00:15→23:22)
[2016-02-12] MEDS: INSULIN NovoLIN REGULAR SUPPLEMENTAL SCALE SQ SCH ×3 (06:00→23:34)
[2016-02-12] MEDS: BETHANECHOL CHL 10 MG TAB PO SCH ×3 (06:30→23:16)
[2016-02-12] MEDS: CHLORHEXIDINE GLUCONATE 0.12% 30 ML CUP MT SCH ×2 (08:00→23:17)
[2016-02-12] MEDS: LACTOBACILLUS ACIDOPHILUS TAB PO SCH ×3 (09:00→17:43)
[2016-02-12] MEDS: GABAPENTIN 300 MG CAP G-TUBE SCH ×2 (09:00→23:13)
[2016-02-12] MEDS: clonazePAM 0.5 MG TAB PO SCH (09:00)
[2016-02-12] MEDS: LANSOPRAZOLE SOLUTAB 30 MG TAB NG SCH (09:00)
[2016-02-12] MEDS: ARTIFICIAL TEARS OPTH SOLN 15 ML BTL EACH EYE SCH ×3 (09:00→17:43)
[2016-02-12] MEDS: COLLAGENASE OINT 30 GM TUBE TOP SCH (09:00)
[2016-02-12] MEDS: SODIUM CHLORIDE 0.9% FLUSH 5 ML FLUSH IVF SCH ×2 (09:00→23:19)
[2016-02-12] MEDS: PARoxetine HCL 20 MG TAB G-TUBE SCH (09:00)
[2016-02-12] MEDS: POTASSIUM CL 40 MEQ/30 ML LIQ UDC GT SCH (09:00)
[2016-02-12] MEDS: CARBIDOPA/LEVODOPA 25 MG/100 MG TAB GT SCH ×4 (09:00→23:15)
[2016-02-12] MEDS: MIDODRINE 5 MG TAB G-TUBE SCH ×2 (09:00→23:15)
[2016-02-12] MEDS: predniSONE 5 MG TAB PO SCH (09:00)
--- NOTE | 2016-02-12 11:49 | HHI.PR ---
Subjective Remarks The patient was laying with his eyes open. He appeared comfortable. Discussed with nursing, apparently his G tube is working. Objective Vitals Vital Signs Date Time Temp Pulse Resp B/P Pulse Ox O2 Delivery O2 Flow Rate FiO2 02/12/16 11:08 97 T-piece 5.00 28 02/12/16 07:59 96.5 69 17 102/68 98 02/12/16 04:00 101.0 98 20 137/87 97 02/12/16 03:45 97 30 02/12/16 01:44 95 BiPAP 30 02/12/16 01:42 95 30 02/12/16 00:00 97.4 90 18 124/81 97 02/11/16 21:55 T-Piece 6.00 30 02/11/16 20:00 96.1 83 18 127/62 96 02/11/16 16:00 97.6 90 31 126/81 99 02/11/16 12:43 98.8 104 34 102/59 95 02/11/16 12:41 98.8 104 34 102/59 95 I/O 02/11/16 02/11/16 02/11/16 02/12/16 02/12/16 02/12/16 07:00 15:00 23:00 07:00 15:00 23:00 Intake Total 433 ml Output Total 500 ml 200 ml 900 ml Balance -67 ml -200 ml -900 ml Tube Feeding 233 ml Other 200 ml Output Urine Total 500 ml 200 ml 900 ml # Bowel Movements 1 3 Result Diagram: 02/11/16 0752 02/11/16 0752 Imaging Last Impressions Chest X-Ray 02/10/16 0000 Signed Impressions: Service Date/Time: Wednesday, February 10, 2016 09:08 - CONCLUSION: Stable chest. Milo Jackson MD FACR Tube Change 02/03/16 0000 Signed Impressions: Service Date/Time: Wednesday, February 03, 2016 17:13 - CONCLUSION: Uncomplicated gastrojejunostomy tube exchange as above. This is a recurrent occlusion with this tube. We will institute Q8 hour flushing of the tube with warm water. Tai Taylor Jr., MD Gastrostomy Tube Change 01/15/16 0000 Signed Impressions: Service Date/Time: Friday, January 15, 2016 12:28 - CONCLUSION: Successful GJ tube exchange as above. Scott Goode MD Abdomen X-Ray 01/12/16 1628 Signed Impressions: Service Date/Time: Tuesday, January 12, 2016 17:35 - CONCLUSION: No evidence of obstruction or free air. Reyes Jewell MD Abdomen Ultrasound 12/06/15 0000 Signed Impressions: Service Date/Time: Sunday, December 06, 2015 17:42 - CONCLUSION: 1. The gallbladder is unremarkable with no evidence of cholelithiasis. 2. Simple cyst in the left kidney. 3. Mild pyelocaliectasis in the right kidney. Salazar Thurman MD Upper Extremity Ultrasound 10/13/15 0000 Signed Impressions: Service Date/Time: Tuesday, October 13, 2015 09:51 - CONCLUSION: 1. No evidence of deep venous thrombosis. John Anderson MD Renal Ultrasound 10/07/15 0000 Signed Impressions: Service Date/Time: Wednesday, October 07, 2015 18:29 - CONCLUSION: 1. No acute findings. 3.6 cm left renal cyst. Valdez catheter in bladder. Amaury Ellsworth MD Tunnelled Chest Tube Removal 08/05/15 1100 Signed Impressions: Service Date/Time: Wednesday, August 05, 2015 11:00 - CONCLUSION: Uncomplicated chest tube removal. Blaine Jackson MD Chest Tube Change 07/31/15 0000 Signed Impressions: Service Date/Time: Friday, July 31, 2015 14:34 - CONCLUSION: Uncomplicated reposition of previously placed chest tube as above. Blaine Jackson MD Chest Tube Insertion 07/30/15 0000 Signed Impressions: Service Date/Time: July 14:50 - CONCLUSION: Uncomplicated chest tube placement as above. Blaine Jackson MD Catheter Change 07/27/15 0000 Signed Impressions: Service Date/Time: Monday, July 27, 2015 14:43 - CONCLUSION: Uncomplicated gastrostomy tube exchange as above. Blaine Jackson MD Chest CT 07/11/15 0000 Signed Impressions: Service Date/Time: Saturday, July 11, 2015 09:49 - CONCLUSION: Scattered patchy densities significantly improved from previous study. Tiny anterior right basilar pneumothorax. Right-sided chest tube in good position. Néstor Matamoros MD Head CT 06/18/15 4703 Signed Impressions: Service Date/Time: June 19:31 - CONCLUSION: Diffuse atrophy unchanged. No acute intracranial findings. Kush Briscoe MD Abdomen/Pelvis CT 06/18/15 190 Signed Impressions: Service Date/Time: June 19:36 - CONCLUSION: 1. Chronic nonspecific urinary bladder wall thickening. Bladder collapsed with Valdez catheter in place. 2. Chronic bilateral mid to lower lung zone groundglass opacity. 3. Nonobstructing left renal calculus. 4. Distended rectum. Kush Briscoe MD Objective Remarks GENERAL: Cachectic patient with limbs contracted. Eyes open. SKIN: Warm and dry. HEAD: Normocephalic. EYES: No scleral icterus. No injection or drainage. NECK: 8.0 Distal XLT trach in place CARDIOVASCULAR: Regular rate and rhythm without murmurs, gallops, or rubs. RESPIRATORY: coarse breath sounds. GASTROINTESTINAL: Abdomen soft, non-tender, nondistended. MUSCULOSKELETAL: Contracted limbs. Wound on lower back currently bandaged. Procedures 07/26- PEG replacement 07/29- right pigtail catheter placement for new pneumothorax Medications and IVs Current Medications Medications (Trade) Dose Ordered Sig/Jassi Route Start Time Stop Time Status Last Admin (NS Flush) 2 ml UNSCH PRN IVF 06/18/15 21:30 02/01/16 03:04 (NS Flush) 2 ml BID IVF 06/19/15 09:00 02/11/16 23:05 (Tylenol 650 Mg/ 20 ml Liq) 650 mg Q6H PRN TUBE 06/18/15 21:30 02/07/16 17:24 (Tears Naturale Opth Soln) 1 drop TID EACH EYE 06/19/15 09:00 02/11/16 18:00 (Zofran Inj) 4 mg Q6H PRN IV 06/18/15 21:30 11/26/15 11:54 (Neurontin) 300 mg BID G-TUBE 06/19/15 09:00 02/11/16 22:55 (Lactinex) 1 tab TID PO 06/19/15 09:00 02/11/16 18:00 (Paxil) 20 mg DAILY G-TUBE 06/19/15 09:00 02/11/16 12:14 (Pill Splitter) 1 ea UNSCH PRN OTHER 06/19/15 03:30 06/28/15 09:35 (Prevacid Odt) 30 mg DAILY NG 07/08/15 09:00 02/11/16 12:14 (Morphine Inj) 2 mg Q3H PRN IV PUSH 07/28/15 00:45 02/10/16 01:34 (Lovenox Inj) 40 mg Q24H SQ 08/09/15 22:00 02/11/16 23:21 ([place] 5-325 Mg) 1 tab Q6H PRN PO 08/15/15 15:45 02/01/16 00:09 (Sublimaze Inj) 50 mcg Q2H PRN IV PUSH 08/15/15 15:45 01/15/16 13:10 (Santyl Oint) 1 applic DAILY TOP 08/21/15 09:00 02/11/16 09:00 (Levsin Liq) 0.125 mg Q4H PRN PO 09/06/15 11:00 02/03/16 07:31 (D50w (Vial) Inj) 25 ml UNSCH PRN IV PUSH 10/12/15 17:30 01/06/16 20:14 (Glucagon Inj) 1 mg UNSCH PRN OTHER 10/12/15 17:30 (NovoLIN R SUPPLEMENTAL SCALE) 1 Q6H SQ 10/12/15 18:00 02/09/16 06:21 (Proamatine) 2.5 mg BID G-TUBE 11/15/15 21:00 02/11/16 23:00 (Brethine Inj) 1 mg UNSCH PRN SQ 12/06/15 06:45 (Ativan Inj) 1 mg Q3HR PRN IVP 12/15/15 17:00 02/10/16 01:33 (Deltasone) 2.5 mg DAILY PO 12/23/15 09:00 02/11/16 12:13 (Free Water) 200 ml Q6HR G-TUBE 01/03/16 18:00 02/12/16 06:00 (KCl 40 Meq/30 ml Liq) 20 meq DAILY GT 01/08/16 17:00 02/11/16 12:14 (Urecholine) 10 mg Q8HR PO 01/13/16 22:00 02/12/16 06:30 (Sinemet 25-100 Mg) 1.5 tab QID GT 01/14/16 21:00 02/11/16 23:00 (ZyPREXA) 2.5 mg Q48H GT 01/21/16 21:00 02/10/16 23:55 (Peridex 0.12% Liq) 15 ml BID@08,20 MT 02/04/16 10:20 02/11/16 22:55 (KlonoPIN) 0.25 mg DAILY PO 02/10/16 09:00 02/11/16 12:13 Date of Insertion: Jan 27, 2016 A/P Problem List: (1) Sepsis due to urinary tract infection ICD Code: A41.9 Status: Resolved (2) Acute respiratory failure ICD Code: J96.00 Status: Resolved (3) Chronic respiratory failure ICD Code: J96.10 Status: Chronic (4) Parkinson disease ICD Code: G20 Status: Chronic (5) UTI (urinary tract infection) ICD Code: N39.0 Status: Acute (6) Encephalopathy ICD Code: G93.40 Status: Resolved Assessment and Plan S/P Septic shock Recurrent aspiration pneumonitis. Klebsiella and Pseudomonas.- previously new sputum growing gram negative rods Leukocytosis- afebrile- WBC up to 25,000 (on po prednisone tapered down to 2.5 mg daily) Candiduria- repeat C and s pending (specimen sent from [facility]- changed ) - S/P Zosyn. S/P Vancomycin and Levaquin course. CXR unchanged -clinically copious secretions requiring suctioning thick greenish sputum- culture- Pseudomonas -sputum specimen sent- growing gram negative rods - final C and s pending - urine C and S- Heena - diflucan x 5 days (start date 01/26) Tobramycin nebulization d/c 02/11/16. Febrile to 101 02/11. Continue to monitor and benton-culture if recurs. -ID signed off Chronic respiratory failure Chronic tracheostomy. Tolerated T piece. S/P recurrent right pneumothorax status post pigtail catheter removal. Currently on 28% oxygen 02/12/16. CXR stable. - pulmonology ff. continue bipap at night. - Suction secretions and Levsin as needed - on po steroids- Prednisone 2.5 mg po daily - Duo nebs 4 times a day and when necessary. S/p colistin nebs and Solumedrol. Metabolic Encephalopathy Parkinson's disease underlying. neuro consulted . CT head 06/18/15: - diffuse atrophy unchanged. No acute intracranial findings. - Continue cognitive efforts and pain meds. - Parkinson's medication increased by neurology. Have decreased antipsychotics to QOD dosing. Now off antipsychotics - continue to wean clonazepam, changed to 0.25 mg BID. Changed to daily 02/09/16. Malnutrition/protein calorie - moderate Status post PEG. Concern for hematemesis 12/05. GI evaluated pt. Gastroccult was negative and hemoglobin has been stable. J tube not functioning 02/11. - Current Colace/senna for bowel regimen. - continue PPI.- Prevacid. - IR to evaluate J tube 02/12/16. Bilateral lower extremity Contractures Stage II DU. - Wound care team following. - Continue physical therapy. - turn q 2 hours. GI prophylaxis: PPI. Stool softener PRN constipation. DVT PPx: Lovenox Discharge Planning Awaiting clinical improvement. Problem Qualifiers (1) Chronic respiratory failure: Qualified Code: J96.10 - Chronic respiratory failure, unspecified whether with hypoxia or hypercapnia Salazar aSnta DO Feb 12, 2016 11:49
--- NOTE | 2016-02-12 16:23 | PD.RAD ---
Post Procedure Progress Note Pre Procedure Diagnosis: (1) Feeding tube obstruction Post Procedure Diagnosis: (1) Feeding tube obstruction Procedure Date: Feb 12, 2016 Supervising Radiologist: Blaine Jackson Plan of Activity Additional Comments: Feeding tube cleared with 10cc sterile water. Tube position verified. Tube functions normally See PACS Report for procedural detail/treatment Blaine Jackson MD Feb 12, 2016 16:23
[2016-02-12] MEDS ORDERED: IOHEXOL 350 MG/ML 50 ML BTL (for RAD DIAG) ONE (16:37)
--- NOTE | 2016-02-12 18:13 | HHI.PR ---
Subjective Remarks Awake , and 0n a T bar FIO2 35 % .On Bipap at HS. On tube feeds at 40 CC .O2 Sat 97. Objective Vital Signs Date Time Temp Pulse Resp B/P Pulse Ox O2 Delivery O2 Flow Rate FiO2 02/12/16 17:44 97 T-piece 6.00 02/12/16 16:00 97.8 84 16 98/69 97 02/12/16 12:00 96.3 67 16 118/67 97 02/12/16 11:08 97 T-piece 5.00 28 02/12/16 07:59 96.5 69 17 102/68 98 02/12/16 04:00 101.0 98 20 137/87 97 02/12/16 03:45 97 30 02/12/16 01:44 95 BiPAP 30 02/12/16 01:42 95 30 02/12/16 00:00 97.4 90 18 124/81 97 02/11/16 21:55 T-Piece 6.00 30 02/11/16 20:00 96.1 83 18 127/62 96 I/O 02/11/16 02/11/16 02/11/16 02/12/16 02/12/16 02/12/16 07:00 15:00 23:00 07:00 15:00 23:00 Intake Total 433 ml Output Total 500 ml 200 ml 900 ml 350 ml Balance -67 ml -200 ml -900 ml -350 ml Tube Feeding 233 ml Other 200 ml Output Urine Total 500 ml 200 ml 900 ml 350 ml # Bowel Movements 1 3 0 Result Diagram: 02/11/16 0752 02/11/16 0752 Objective Remarks This is a thin white male who is , awake with a trach tube in place. HEENT: Pupils are equal and reactive to light. CHEST:Decreased breath sounds,with Occ wheezes and basal crackles . CARDIOVASCULAR: S1 and S2 is normal.No murmur. ABDOMEN: Soft, nondistended. BS +. He has a PEG tube in place. EXTREMITIES: Contractures.muscle wasting. NEURO: Awake and has weak extremities. Skin is warm. Assessment and Plan Assessment and Plan IMPRESSION 1. Chronic Respiratory failure. 2. Sepsis, Aspiration. Improved 3. Left basal Pneumonia, Resolved 4. Tracheobronchitis 5. Parkinson's disease 6. Dementia. 7. Severe Deconditioning. Plan : 1. Continue on Bipap 06/20, FIo2 28 % at 10 pm to 7 am. 2. Nebs Bid , duoneb. 3. Cont tube feeds Jevity at 45 CC 4. T Bar 28 % daytime. 5. BMP ,CBC in am 6. Cont Trach toilet and lavage. 7. Postural drainage tid 1 Darren Kiser MD Feb 12, 2016 18:12
[2016-02-12] MEDS: ENOXAPARIN SODIUM 40 MG/0.4 ML SYRINGE SQ SCH (22:00)
[2016-02-12] MEDS: OLANZapine 2.5 MG TAB GT SCH (23:14)
[2016-02-12] MEDS: LORazepam 2 MG/ML VIAL IVP PRN (23:18)
[2016-02-13] VITALS (8 sets, daily range): BP systolic 97–101; BP diastolic 64–71; PULSE 70–89; RESP 20–24; TEMP 96.4–99.3; O2SAT 95–98
[2016-02-13] MEDS: ACETAMINOPHEN 650 MG/20.3 ML UDC TUBE PRN (03:00)
[2016-02-13] MEDS: INSULIN NovoLIN REGULAR SUPPLEMENTAL SCALE SQ SCH ×3 (05:06→17:14)
[2016-02-13] MEDS: BETHANECHOL CHL 10 MG TAB PO SCH ×3 (05:08→21:51)
[2016-02-13] MEDS: FREE WATER G-TUBE SCH ×3 (05:08→17:04)
[2016-02-13 08:31] LABS: BICARBONATE 29.5 MEQ/L (21.0-32.0); POTASSIUM 3.6 MEQ/L (3.5-5.1)
[2016-02-13] MEDS: CHLORHEXIDINE GLUCONATE 0.12% 30 ML CUP MT SCH ×2 (09:41→20:00)
[2016-02-13] MEDS: PARoxetine HCL 20 MG TAB G-TUBE SCH (09:42)
[2016-02-13] MEDS: POTASSIUM CL 40 MEQ/30 ML LIQ UDC GT SCH (09:42)
[2016-02-13] MEDS: LACTOBACILLUS ACIDOPHILUS TAB PO SCH ×3 (09:43→17:04)
[2016-02-13] MEDS: LANSOPRAZOLE SOLUTAB 30 MG TAB NG SCH (09:43)
[2016-02-13] MEDS: GABAPENTIN 300 MG CAP G-TUBE SCH ×2 (09:43→21:50)
[2016-02-13] MEDS: clonazePAM 0.5 MG TAB PO SCH (09:44)
[2016-02-13] MEDS: MIDODRINE 5 MG TAB G-TUBE SCH ×2 (09:46→21:51)
[2016-02-13] MEDS: predniSONE 5 MG TAB PO SCH (09:46)
[2016-02-13] MEDS: CARBIDOPA/LEVODOPA 25 MG/100 MG TAB GT SCH ×4 (09:47→21:50)
[2016-02-13] MEDS: SODIUM CHLORIDE 0.9% FLUSH 5 ML FLUSH IVF SCH ×2 (09:48→21:51)
[2016-02-13] MEDS: COLLAGENASE OINT 30 GM TUBE TOP SCH (09:50)
[2016-02-13] MEDS: ARTIFICIAL TEARS OPTH SOLN 15 ML BTL EACH EYE SCH ×3 (09:50→17:05)
--- NOTE | 2016-02-13 15:12 | HHI.PR ---
Subjective Remarks The patient appeared to be resting comfortably. He was alert and trying to whisper. He looked comfortable. Discussed with nursing. Objective Vitals Vital Signs Date Time Temp Pulse Resp B/P Pulse Ox O2 Delivery O2 Flow Rate FiO2 02/13/16 12:00 97.4 74 22 99/67 96 02/13/16 08:00 96.8 70 23 99/64 95 02/13/16 04:34 97.0 74 22 97/65 95 02/13/16 02:03 98 BiPAP 35 02/13/16 00:05 99.3 89 24 98/64 98 02/12/16 20:49 97 30 02/12/16 20:04 99.4 94 26 123/77 96 02/12/16 17:44 97 T-piece 6.00 02/12/16 16:00 97.8 84 16 98/69 97 I/O 02/12/16 02/12/16 02/12/16 02/13/16 02/13/16 02/13/16 07:00 15:00 23:00 07:00 15:00 23:00 Intake Total 200 ml Output Total 900 ml 350 ml 250 ml 100 ml Balance -900 ml -350 ml -250 ml -100 ml 200 ml Other 200 ml Output Urine Total 900 ml 350 ml 250 ml 100 ml # Bowel Movements 3 0 1 2 Result Diagram: 02/11/16 0752 02/13/16 0647 Imaging Last Impressions Chest X-Ray 02/10/16 0000 Signed Impressions: Service Date/Time: Wednesday, February 10, 2016 09:08 - CONCLUSION: Stable chest. Milo Jackson MD FACR Tube Change 02/03/16 0000 Signed Impressions: Service Date/Time: Wednesday, February 03, 2016 17:13 - CONCLUSION: Uncomplicated gastrojejunostomy tube exchange as above. This is a recurrent occlusion with this tube. We will institute Q8 hour flushing of the tube with warm water. Tai Taylor Jr., MD Gastrostomy Tube Change 01/15/16 0000 Signed Impressions: Service Date/Time: Friday, January 15, 2016 12:28 - CONCLUSION: Successful GJ tube exchange as above. Scott Goode MD Abdomen X-Ray 01/12/16 1628 Signed Impressions: Service Date/Time: Tuesday, January 12, 2016 17:35 - CONCLUSION: No evidence of obstruction or free air. Reyes Jewell MD Abdomen Ultrasound 12/06/15 0000 Signed Impressions: Service Date/Time: Sunday, December 06, 2015 17:42 - CONCLUSION: 1. The gallbladder is unremarkable with no evidence of cholelithiasis. 2. Simple cyst in the left kidney. 3. Mild pyelocaliectasis in the right kidney. Salazar Thurman MD Upper Extremity Ultrasound 10/13/15 0000 Signed Impressions: Service Date/Time: Tuesday, October 13, 2015 09:51 - CONCLUSION: 1. No evidence of deep venous thrombosis. John Anderson MD Renal Ultrasound 10/07/15 0000 Signed Impressions: Service Date/Time: Wednesday, October 07, 2015 18:29 - CONCLUSION: 1. No acute findings. 3.6 cm left renal cyst. Valdez catheter in bladder. Amaury Ellsworth MD Tunnelled Chest Tube Removal 08/05/15 1100 Signed Impressions: Service Date/Time: Wednesday, August 05, 2015 11:00 - CONCLUSION: Uncomplicated chest tube removal. Blaine Jackson MD Chest Tube Change 07/31/15 0000 Signed Impressions: Service Date/Time: Friday, July 31, 2015 14:34 - CONCLUSION: Uncomplicated reposition of previously placed chest tube as above. Blaine Jackson MD Chest Tube Insertion 07/30/15 0000 Signed Impressions: Service Date/Time: July 14:50 - CONCLUSION: Uncomplicated chest tube placement as above. Blaine Jackson MD Catheter Change 07/27/15 0000 Signed Impressions: Service Date/Time: Monday, July 27, 2015 14:43 - CONCLUSION: Uncomplicated gastrostomy tube exchange as above. Blaine Jackson MD Chest CT 07/11/15 0000 Signed Impressions: Service Date/Time: Saturday, July 11, 2015 09:49 - CONCLUSION: Scattered patchy densities significantly improved from previous study. Tiny anterior right basilar pneumothorax. Right-sided chest tube in good position. Néstor Matamoros MD Head CT 06/18/15 444 Signed Impressions: Service Date/Time: June 19:31 - CONCLUSION: Diffuse atrophy unchanged. No acute intracranial findings. Kush Briscoe MD Abdomen/Pelvis CT 06/18/15 0920 Signed Impressions: Service Date/Time: June 19:36 - CONCLUSION: 1. Chronic nonspecific urinary bladder wall thickening. Bladder collapsed with Valdez catheter in place. 2. Chronic bilateral mid to lower lung zone groundglass opacity. 3. Nonobstructing left renal calculus. 4. Distended rectum. Kush Briscoe MD Objective Remarks GENERAL: Cachectic patient with limbs contracted. Eyes open. SKIN: Warm and dry. HEAD: Normocephalic. EYES: No scleral icterus. No injection or drainage. NECK: 8.0 Distal XLT trach in place CARDIOVASCULAR: Regular rate and rhythm without murmurs, gallops, or rubs. RESPIRATORY: coarse breath sounds. GASTROINTESTINAL: Abdomen soft, non-tender, nondistended. MUSCULOSKELETAL: Contracted limbs. Wound on lower back currently bandaged. Procedures 07/26- PEG replacement 07/29- right pigtail catheter placement for new pneumothorax Medications and IVs Current Medications Medications (Trade) Dose Ordered Sig/Jassi Route Start Time Stop Time Status Last Admin (NS Flush) 2 ml UNSCH PRN IVF 06/18/15 21:30 02/01/16 03:04 (NS Flush) 2 ml BID IVF 06/19/15 09:00 02/13/16 09:48 (Tylenol 650 Mg/ 20 ml Liq) 650 mg Q6H PRN TUBE 06/18/15 21:30 02/13/16 03:00 (Tears Naturale Opth Soln) 1 drop TID EACH EYE 06/19/15 09:00 02/13/16 13:28 (Zofran Inj) 4 mg Q6H PRN IV 06/18/15 21:30 11/26/15 11:54 (Neurontin) 300 mg BID G-TUBE 06/19/15 09:00 02/13/16 09:43 (Lactinex) 1 tab TID PO 06/19/15 09:00 02/13/16 13:27 (Paxil) 20 mg DAILY G-TUBE 06/19/15 09:00 02/13/16 09:42 (Pill Splitter) 1 ea UNSCH PRN OTHER 06/19/15 03:30 06/28/15 09:35 (Prevacid Odt) 30 mg DAILY NG 07/08/15 09:00 02/13/16 09:43 (Morphine Inj) 2 mg Q3H PRN IV PUSH 07/28/15 00:45 02/10/16 01:34 (Lovenox Inj) 40 mg Q24H SQ 08/09/15 22:00 02/12/16 22:00 ([place] 5-325 Mg) 1 tab Q6H PRN PO 08/15/15 15:45 02/01/16 00:09 (Sublimaze Inj) 50 mcg Q2H PRN IV PUSH 08/15/15 15:45 01/15/16 13:10 (Santyl Oint) 1 applic DAILY TOP 08/21/15 09:00 02/13/16 09:50 (Levsin Liq) 0.125 mg Q4H PRN PO 09/06/15 11:00 02/03/16 07:31 (D50w (Vial) Inj) 25 ml UNSCH PRN IV PUSH 10/12/15 17:30 01/06/16 20:14 (Glucagon Inj) 1 mg UNSCH PRN OTHER 10/12/15 17:30 (NovoLIN R SUPPLEMENTAL SCALE) 1 Q6H SQ 10/12/15 18:00 02/09/16 06:21 (Proamatine) 2.5 mg BID G-TUBE 11/15/15 21:00 02/13/16 09:46 (Brethine Inj) 1 mg UNSCH PRN SQ 12/06/15 06:45 (Ativan Inj) 1 mg Q3HR PRN IVP 12/15/15 17:00 02/12/16 23:18 (Deltasone) 2.5 mg DAILY PO 12/23/15 09:00 02/13/16 09:46 (Free Water) 200 ml Q6HR G-TUBE 01/03/16 18:00 02/13/16 12:00 (KCl 40 Meq/30 ml Liq) 20 meq DAILY GT 01/08/16 17:00 02/13/16 09:42 (Urecholine) 10 mg Q8HR PO 01/13/16 22:00 02/13/16 13:27 (Sinemet 25-100 Mg) 1.5 tab QID GT 01/14/16 21:00 02/13/16 13:27 (ZyPREXA) 2.5 mg Q48H GT 01/21/16 21:00 02/12/16 23:14 (Peridex 0.12% Liq) 15 ml BID@08,20 MT 02/04/16 10:20 02/13/16 09:41 (KlonoPIN) 0.25 mg DAILY PO 02/10/16 09:00 02/13/16 09:44 Date of Insertion: Jan 27, 2016 A/P Problem List: (1) Sepsis due to urinary tract infection ICD Code: A41.9 Status: Resolved (2) Acute respiratory failure ICD Code: J96.00 Status: Resolved (3) Chronic respiratory failure ICD Code: J96.10 Status: Chronic (4) Parkinson disease ICD Code: G20 Status: Chronic (5) UTI (urinary tract infection) ICD Code: N39.0 Status: Acute (6) Encephalopathy ICD Code: G93.40 Status: Resolved Assessment and Plan S/P Septic shock Recurrent aspiration pneumonitis. Klebsiella and Pseudomonas.- previously new sputum growing gram negative rods Leukocytosis- afebrile- WBC up to 25,000 (on po prednisone tapered down to 2.5 mg daily) Candiduria- repeat C and s pending (specimen sent from [facility]- changed ) - S/P Zosyn. S/P Vancomycin and Levaquin course. CXR unchanged -clinically copious secretions requiring suctioning thick greenish sputum- culture- Pseudomonas -sputum specimen sent- growing gram negative rods - final C and s pending - urine C and S- Heena - diflucan x 5 days (start date 01/26) Tobramycin nebulization d/c 02/11/16. Febrile to 101 02/11. Continue to monitor and benton-culture if recurs. Afebrile 02/12. -ID signed off Chronic respiratory failure Chronic tracheostomy. Tolerated T piece. S/P recurrent right pneumothorax status post pigtail catheter removal. Currently on 28% oxygen 02/12/16. CXR stable. - pulmonology ff. continue bipap at night. - Suction secretions and Levsin as needed - on po steroids- Prednisone 2.5 mg po daily - Duo nebs 4 times a day and when necessary. S/p colistin nebs and Solumedrol. Metabolic Encephalopathy Parkinson's disease underlying. neuro consulted . CT head 06/18/15: - diffuse atrophy unchanged. No acute intracranial findings. - Continue cognitive efforts and pain meds. - Parkinson's medication increased by neurology. Have decreased antipsychotics to QOD dosing. Now off antipsychotics - continue to wean clonazepam, changed to 0.25 mg BID. Changed to daily 02/09/16. Malnutrition/protein calorie - moderate Status post PEG. Concern for hematemesis 12/05. GI evaluated pt. Gastroccult was negative and hemoglobin has been stable. J tube not functioning 02/11. - Current Colace/senna for bowel regimen. - continue PPI.- Prevacid. - IR cleared J tube 02/12/16. Will ask dietary to recommend another tube feed, hoping it will be less prone to clogging the tube than the current tube feed. Bilateral lower extremity Contractures Stage II DU. - Wound care team following. - Continue physical therapy. - turn q 2 hours. GI prophylaxis: PPI. Stool softener PRN constipation. DVT PPx: Lovenox Discharge Planning Awaiting clinical improvement. Problem Qualifiers (1) Chronic respiratory failure: Qualified Code: J96.10 - Chronic respiratory failure, unspecified whether with hypoxia or hypercapnia Salazar Santa DO Feb 13, 2016 15:12
[2016-02-13] MEDS: ACETAMINOPHEN/HYDROcodone 325 MG/5 MG TAB PO PRN (21:51)
[2016-02-13] MEDS: ENOXAPARIN SODIUM 40 MG/0.4 ML SYRINGE SQ SCH (21:51)
[2016-02-14] VITALS (13 sets, daily range): BP systolic 93–139; BP diastolic 55–100; PULSE 70–85; RESP 18–22; TEMP 97–98.6; O2SAT 94–98
[2016-02-14] MEDS: INSULIN NovoLIN REGULAR SUPPLEMENTAL SCALE SQ SCH ×4 (05:49→18:00)
[2016-02-14] MEDS: BETHANECHOL CHL 10 MG TAB PO SCH ×3 (05:54→21:26)
[2016-02-14] MEDS: FREE WATER G-TUBE SCH ×4 (05:55→18:00)
[2016-02-14] MEDS: CHLORHEXIDINE GLUCONATE 0.12% 30 ML CUP MT SCH ×2 (09:04→21:25)
[2016-02-14] MEDS: POTASSIUM CL 40 MEQ/30 ML LIQ UDC GT SCH (09:05)
[2016-02-14] MEDS: LACTOBACILLUS ACIDOPHILUS TAB PO SCH ×3 (09:06→18:07)
[2016-02-14] MEDS: ARTIFICIAL TEARS OPTH SOLN 15 ML BTL EACH EYE SCH ×3 (09:07→18:07)
[2016-02-14] MEDS: COLLAGENASE OINT 30 GM TUBE TOP SCH (09:07)
[2016-02-14] MEDS: PARoxetine HCL 20 MG TAB G-TUBE SCH (09:08)
[2016-02-14] MEDS: GABAPENTIN 300 MG CAP G-TUBE SCH ×2 (09:08→21:26)
[2016-02-14] MEDS: LANSOPRAZOLE SOLUTAB 30 MG TAB NG SCH (09:08)
[2016-02-14] MEDS: MIDODRINE 5 MG TAB G-TUBE SCH ×2 (09:09→21:26)
[2016-02-14] MEDS: clonazePAM 0.5 MG TAB PO SCH (09:10)
[2016-02-14] MEDS: predniSONE 5 MG TAB PO SCH (09:11)
[2016-02-14] MEDS: CARBIDOPA/LEVODOPA 25 MG/100 MG TAB GT SCH ×4 (09:12→21:26)
[2016-02-14] MEDS: SODIUM CHLORIDE 0.9% FLUSH 5 ML FLUSH IVF SCH ×2 (09:13→21:26)
--- NOTE | 2016-02-14 11:20 | HHI.PR ---
Subjective Remarks The pt was staring up at the ceiling. He was not in ay distress. No acute events reported. Objective Vitals Vital Signs Date Time Temp Pulse Resp B/P Pulse Ox O2 Delivery O2 Flow Rate FiO2 02/14/16 08:00 97.8 81 22 139/100 94 02/14/16 07:57 98 T-piece 28 02/14/16 05:30 96 30 02/14/16 03:53 97.0 77 20 121/59 97 02/14/16 00:45 94 30 02/14/16 00:45 94 BiPAP 30 02/14/16 00:17 97.2 70 20 125/88 96 02/13/16 20:00 T-Piece 28 Humidified 02/13/16 19:56 96.4 71 20 101/64 97 02/13/16 16:00 97.1 72 20 101/71 97 02/13/16 12:00 97.4 74 22 99/67 96 02/13/16 12:00 96 T-Piece 6.00 28 I/O 02/13/16 02/13/16 02/13/16 02/14/16 02/14/16 02/14/16 07:00 15:00 23:00 07:00 15:00 23:00 Intake Total 200 ml 2078 ml 587 ml Output Total 100 ml 200 ml 400 ml Balance -100 ml 0 ml 2078 ml 187 ml IV Total 0 ml Tube Feeding 1878 ml 387 ml Other 200 ml 200 ml 200 ml Output Urine Total 100 ml 200 ml 400 ml # Bowel Movements 2 2 2 Result Diagram: 02/11/16 0752 02/13/16 0647 Imaging Last Impressions Chest X-Ray 02/10/16 0000 Signed Impressions: Service Date/Time: Wednesday, February 10, 2016 09:08 - CONCLUSION: Stable chest. Milo Jackson MD FACR Tube Change 02/03/16 0000 Signed Impressions: Service Date/Time: Wednesday, February 03, 2016 17:13 - CONCLUSION: Uncomplicated gastrojejunostomy tube exchange as above. This is a recurrent occlusion with this tube. We will institute Q8 hour flushing of the tube with warm water. Tai Taylor Jr., MD Gastrostomy Tube Change 01/15/16 0000 Signed Impressions: Service Date/Time: Friday, January 15, 2016 12:28 - CONCLUSION: Successful GJ tube exchange as above. Scott Goode MD Abdomen X-Ray 01/12/16 1628 Signed Impressions: Service Date/Time: Tuesday, January 12, 2016 17:35 - CONCLUSION: No evidence of obstruction or free air. Reyes Jewell MD Abdomen Ultrasound 12/06/15 0000 Signed Impressions: Service Date/Time: Sunday, December 06, 2015 17:42 - CONCLUSION: 1. The gallbladder is unremarkable with no evidence of cholelithiasis. 2. Simple cyst in the left kidney. 3. Mild pyelocaliectasis in the right kidney. Salazar Thurman MD Upper Extremity Ultrasound 10/13/15 0000 Signed Impressions: Service Date/Time: Tuesday, October 13, 2015 09:51 - CONCLUSION: 1. No evidence of deep venous thrombosis. John Anderson MD Renal Ultrasound 10/07/15 0000 Signed Impressions: Service Date/Time: Wednesday, October 07, 2015 18:29 - CONCLUSION: 1. No acute findings. 3.6 cm left renal cyst. Valdez catheter in bladder. Amaury Ellsworth MD Tunnelled Chest Tube Removal 08/05/15 1100 Signed Impressions: Service Date/Time: Wednesday, August 05, 2015 11:00 - CONCLUSION: Uncomplicated chest tube removal. Blaine Jackson MD Chest Tube Change 07/31/15 0000 Signed Impressions: Service Date/Time: Friday, July 31, 2015 14:34 - CONCLUSION: Uncomplicated reposition of previously placed chest tube as above. Blaine Jackson MD Chest Tube Insertion 07/30/15 0000 Signed Impressions: Service Date/Time: July 14:50 - CONCLUSION: Uncomplicated chest tube placement as above. Blaine Jackson MD Catheter Change 07/27/15 0000 Signed Impressions: Service Date/Time: Monday, July 27, 2015 14:43 - CONCLUSION: Uncomplicated gastrostomy tube exchange as above. Blaine Jackson MD Chest CT 07/11/15 0000 Signed Impressions: Service Date/Time: Saturday, July 11, 2015 09:49 - CONCLUSION: Scattered patchy densities significantly improved from previous study. Tiny anterior right basilar pneumothorax. Right-sided chest tube in good position. Néstor Matamoros MD Head CT 5/12/16 1903 Signed Impressions: Service Date/Time: June 19:31 - CONCLUSION: Diffuse atrophy unchanged. No acute intracranial findings. Kush Briscoe MD Abdomen/Pelvis CT 06/18/151902 Signed Impressions: Service Date/Time: June 19:36 - CONCLUSION: 1. Chronic nonspecific urinary bladder wall thickening. Bladder collapsed with Valdez catheter in place. 2. Chronic bilateral mid to lower lung zone groundglass opacity. 3. Nonobstructing left renal calculus. 4. Distended rectum. Kush Briscoe MD Objective Remarks GENERAL: Cachectic patient with limbs contracted. Eyes open. SKIN: Warm and dry. HEAD: Normocephalic. EYES: No scleral icterus. No injection or drainage. NECK: 8.0 Distal XLT trach in place CARDIOVASCULAR: Regular rate and rhythm without murmurs, gallops, or rubs. RESPIRATORY: coarse breath sounds. GASTROINTESTINAL: Abdomen soft, non-tender, nondistended. MUSCULOSKELETAL: Contracted limbs. Wound on lower back currently bandaged. Procedures 07/26- PEG replacement 07/29- right pigtail catheter placement for new pneumothorax Medications and IVs Current Medications Medications (Trade) Dose Ordered Sig/Jassi Route Start Time Stop Time Status Last Admin (NS Flush) 2 ml UNSCH PRN IVF 06/18/15 21:30 02/01/16 03:04 (NS Flush) 2 ml BID IVF 06/19/15 09:00 02/14/16 09:13 (Tylenol 650 Mg/ 20 ml Liq) 650 mg Q6H PRN TUBE 06/18/15 21:30 02/13/16 03:00 (Tears Naturale Opth Soln) 1 drop TID EACH EYE 06/19/15 09:00 02/14/16 09:07 (Zofran Inj) 4 mg Q6H PRN IV 06/18/15 21:30 11/26/15 11:54 (Neurontin) 300 mg BID G-TUBE 06/19/15 09:00 02/14/16 09:08 (Lactinex) 1 tab TID PO 06/19/15 09:00 02/14/16 09:06 (Paxil) 20 mg DAILY G-TUBE 06/19/15 09:00 02/14/16 09:08 (Pill Splitter) 1 ea UNSCH PRN OTHER 06/19/15 03:30 06/28/15 09:35 (Prevacid Odt) 30 mg DAILY NG 07/08/15 09:00 02/14/16 09:08 (Morphine Inj) 2 mg Q3H PRN IV PUSH 07/28/15 00:45 02/10/16 01:34 (Lovenox Inj) 40 mg Q24H SQ 08/09/15 22:00 02/13/16 21:51 ([place] 5-325 Mg) 1 tab Q6H PRN PO 08/15/15 15:45 02/13/16 21:51 (Sublimaze Inj) 50 mcg Q2H PRN IV PUSH 08/15/15 15:45 01/15/16 13:10 (Santyl Oint) 1 applic DAILY TOP 08/21/15 09:00 02/14/16 09:07 (Levsin Liq) 0.125 mg Q4H PRN PO 09/06/15 11:00 02/03/16 07:31 (D50w (Vial) Inj) 25 ml UNSCH PRN IV PUSH 10/12/15 17:30 01/06/16 20:14 (Glucagon Inj) 1 mg UNSCH PRN OTHER 10/12/15 17:30 (NovoLIN R SUPPLEMENTAL SCALE) 1 Q6H SQ 10/12/15 18:00 02/09/16 06:21 (Proamatine) 2.5 mg BID G-TUBE 11/15/15 21:00 02/14/16 09:09 (Brethine Inj) 1 mg UNSCH PRN SQ 12/06/15 06:45 (Ativan Inj) 1 mg Q3HR PRN IVP 12/15/15 17:00 02/12/16 23:18 (Deltasone) 2.5 mg DAILY PO 12/23/15 09:00 02/14/16 09:11 (Free Water) 200 ml Q6HR G-TUBE 01/03/16 18:00 02/14/16 05:55 (KCl 40 Meq/30 ml Liq) 20 meq DAILY GT 01/08/16 17:00 02/14/16 09:05 (Urecholine) 10 mg Q8HR PO 01/13/16 22:00 02/14/16 05:54 (Sinemet 25-100 Mg) 1.5 tab QID GT 01/14/16 21:00 02/14/16 09:12 (ZyPREXA) 2.5 mg Q48H GT 01/21/16 21:00 02/12/16 23:14 (Peridex 0.12% Liq) 15 ml BID@08,20 MT 02/04/16 10:20 02/14/16 09:04 (KlonoPIN) 0.25 mg DAILY PO 02/10/16 09:00 02/14/16 09:10 Date of Insertion: Jan 27, 2016 A/P Problem List: (1) Sepsis due to urinary tract infection ICD Code: A41.9 Status: Resolved (2) Acute respiratory failure ICD Code: J96.00 Status: Resolved (3) Chronic respiratory failure ICD Code: J96.10 Status: Chronic (4) Parkinson disease ICD Code: G20 Status: Chronic (5) UTI (urinary tract infection) ICD Code: N39.0 Status: Acute (6) Encephalopathy ICD Code: G93.40 Status: Resolved Assessment and Plan S/P Septic shock Recurrent aspiration pneumonitis. Klebsiella and Pseudomonas.- previously new sputum growing gram negative rods Leukocytosis- afebrile- WBC up to 25,000 (on po prednisone tapered down to 2.5 mg daily) Candiduria- repeat C and s pending (specimen sent from [facility]- changed ) - S/P Zosyn. S/P Vancomycin and Levaquin course. CXR unchanged -clinically copious secretions requiring suctioning thick greenish sputum- culture- Pseudomonas -sputum specimen sent- growing gram negative rods - final C and s pending - urine C and S- Heena - diflucan x 5 days (start date 01/26) Tobramycin nebulization d/c 02/11/16. Febrile to 101 02/11. Continue to monitor and benton-culture if recurs. Afebrile 02/13. -ID signed off Chronic respiratory failure Chronic tracheostomy. Tolerated T piece. S/P recurrent right pneumothorax status post pigtail catheter removal. Currently on 28% oxygen 02/14/16. CXR stable. - pulmonology ff. continue bipap at night. - Suction secretions and Levsin as needed - on po steroids- Prednisone 2.5 mg po daily - Duo nebs 4 times a day and when necessary. S/p colistin nebs and Solumedrol. Metabolic Encephalopathy Parkinson's disease underlying. neuro consulted . CT head 06/18/15: - diffuse atrophy unchanged. No acute intracranial findings. - Continue cognitive efforts and pain meds. - Parkinson's medication increased by neurology. Have decreased antipsychotics to QOD dosing. Now off antipsychotics - continue to wean clonazepam. Will change to q 48 hours 02/13. Malnutrition/protein calorie - moderate Status post PEG. Concern for hematemesis 12/05. GI evaluated pt. Gastroccult was negative and hemoglobin has been stable. J tube not functioning 02/11. - Current Colace/senna for bowel regimen. - continue PPI.- Prevacid. - IR cleared J tube 02/12/16. Will ask dietary to recommend another tube feed, hoping it will be less prone to clogging the tube than the current tube feed. Bilateral lower extremity Contractures Stage II DU. - Wound care team following. - Continue physical therapy. - turn q 2 hours. GI prophylaxis: PPI. Stool softener PRN constipation. DVT PPx: Lovenox Discharge Planning Awaiting clinical improvement. Problem Qualifiers (1) Chronic respiratory failure: Qualified Code: J96.10 - Chronic respiratory failure, unspecified whether with hypoxia or hypercapnia Salazar Santa DO Feb 14, 2016 11:20
[2016-02-14] MEDS: LORazepam 2 MG/ML VIAL IVP PRN (13:06)
[2016-02-14] MEDS: MORPHINE SULFATE 4 MG/ML INJ IV PUSH PRN (13:09)
[2016-02-14] MEDS: ENOXAPARIN SODIUM 40 MG/0.4 ML SYRINGE SQ SCH (21:25)
[2016-02-14] MEDS: OLANZapine 2.5 MG TAB GT SCH (21:26)
[2016-02-14] MEDS: ACETAMINOPHEN/HYDROcodone 325 MG/5 MG TAB PO PRN (21:26)
[2016-02-15] VITALS (8 sets, daily range): BP systolic 94–125; BP diastolic 67–75; PULSE 51–86; RESP 16–20; TEMP 96–98.2; O2SAT 94–100
[2016-02-15] MEDS: INSULIN NovoLIN REGULAR SUPPLEMENTAL SCALE SQ SCH ×4 (05:35→18:00)
[2016-02-15] MEDS: FREE WATER G-TUBE SCH ×4 (05:35→17:18)
[2016-02-15] MEDS: BETHANECHOL CHL 10 MG TAB PO SCH ×3 (05:35→22:07)
[2016-02-15] MEDS: PARoxetine HCL 20 MG TAB G-TUBE SCH (09:44)
[2016-02-15] MEDS: ARTIFICIAL TEARS OPTH SOLN 15 ML BTL EACH EYE SCH ×3 (09:44→17:18)
[2016-02-15] MEDS: CHLORHEXIDINE GLUCONATE 0.12% 30 ML CUP MT SCH ×2 (09:44→22:04)
[2016-02-15] MEDS: GABAPENTIN 300 MG CAP G-TUBE SCH ×2 (09:44→22:07)
[2016-02-15] MEDS: LANSOPRAZOLE SOLUTAB 30 MG TAB NG SCH (09:45)
[2016-02-15] MEDS: POTASSIUM CL 40 MEQ/30 ML LIQ UDC GT SCH (09:45)
[2016-02-15] MEDS: MIDODRINE 5 MG TAB G-TUBE SCH ×2 (09:45→22:06)
[2016-02-15] MEDS: SODIUM CHLORIDE 0.9% FLUSH 5 ML FLUSH IVF SCH ×2 (09:45→22:07)
[2016-02-15] MEDS: COLLAGENASE OINT 30 GM TUBE TOP SCH (09:45)
[2016-02-15] MEDS: CARBIDOPA/LEVODOPA 25 MG/100 MG TAB GT SCH ×4 (09:45→22:05)
[2016-02-15] MEDS: predniSONE 5 MG TAB PO SCH (09:45)
[2016-02-15] MEDS: LACTOBACILLUS ACIDOPHILUS TAB PO SCH ×3 (09:45→17:18)
[2016-02-15] MEDS: ACETAMINOPHEN/HYDROcodone 325 MG/5 MG TAB PO PRN (13:36)
--- NOTE | 2016-02-15 13:56 | HHI.PR ---
Subjective Remarks The patient's cousin was at the bedside. He inquired about the patient's toenails and if there was a fungal infection there. The patient was resting comfortably and open his eyes when asked questions. Nursing inquired about the patient's fingernails as well. Objective Vitals Vital Signs Date Time Temp Pulse Resp B/P Pulse Ox O2 Delivery O2 Flow Rate FiO2 02/15/16 12:00 97.0 86 18 125/75 99 02/15/16 11:25 98 T-piece 35 02/15/16 08:00 98.2 66 20 111/69 99 02/15/16 05:06 97.8 51 18 94/67 100 02/15/16 03:07 97 30 02/14/16 23:33 98.2 78 22 93/55 96 02/14/16 23:27 96 30 02/14/16 21:30 98 30 02/14/16 21:30 98 BiPAP 30 02/14/16 20:23 98.6 82 20 103/78 95 02/14/16 20:00 T-Piece 28 Humidified 02/14/16 16:00 98 30 02/14/16 16:00 97.7 85 18 120/87 96 I/O 02/14/16 02/14/16 02/14/16 02/15/16 02/15/16 02/15/16 07:00 15:00 23:00 07:00 15:00 23:00 Intake Total 587 ml 1377 ml 511 ml Output Total 400 ml 400 ml 750 ml Balance 187 ml -400 ml 1377 ml -239 ml IV Total 0 ml 0 ml 0 ml Tube Feeding 387 ml 777 ml 311 ml Other 200 ml 600 ml 200 ml Output Urine Total 400 ml 400 ml 750 ml # Bowel Movements 2 1 2 Result Diagram: 02/11/16 0752 02/13/16 0647 Imaging Last Impressions Chest X-Ray 02/10/16 0000 Signed Impressions: Service Date/Time: Wednesday, February 10, 2016 09:08 - CONCLUSION: Stable chest. Milo Jackson MD FACR Tube Change 02/03/16 0000 Signed Impressions: Service Date/Time: Wednesday, February 03, 2016 17:13 - CONCLUSION: Uncomplicated gastrojejunostomy tube exchange as above. This is a recurrent occlusion with this tube. We will institute Q8 hour flushing of the tube with warm water. Tai Taylor Jr., MD Gastrostomy Tube Change 01/15/16 0000 Signed Impressions: Service Date/Time: Friday, January 15, 2016 12:28 - CONCLUSION: Successful GJ tube exchange as above. Scott Goode MD Abdomen X-Ray 01/12/16 1628 Signed Impressions: Service Date/Time: Tuesday, January 12, 2016 17:35 - CONCLUSION: No evidence of obstruction or free air. Reyes Jewell MD Abdomen Ultrasound 12/06/15 0000 Signed Impressions: Service Date/Time: Sunday, December 06, 2015 17:42 - CONCLUSION: 1. The gallbladder is unremarkable with no evidence of cholelithiasis. 2. Simple cyst in the left kidney. 3. Mild pyelocaliectasis in the right kidney. Salazar Thurman MD Upper Extremity Ultrasound 10/13/15 0000 Signed Impressions: Service Date/Time: Tuesday, October 13, 2015 09:51 - CONCLUSION: 1. No evidence of deep venous thrombosis. John Anderson MD Renal Ultrasound 10/07/15 0000 Signed Impressions: Service Date/Time: Wednesday, October 07, 2015 18:29 - CONCLUSION: 1. No acute findings. 3.6 cm left renal cyst. Valdez catheter in bladder. Amaury Ellsworth MD Tunnelled Chest Tube Removal 08/05/15 1100 Signed Impressions: Service Date/Time: Wednesday, August 05, 2015 11:00 - CONCLUSION: Uncomplicated chest tube removal. Blaine Jackson MD Chest Tube Change 07/31/15 0000 Signed Impressions: Service Date/Time: Friday, July 31, 2015 14:34 - CONCLUSION: Uncomplicated reposition of previously placed chest tube as above. Blaine Jackson MD Chest Tube Insertion 07/30/15 0000 Signed Impressions: Service Date/Time: July 14:50 - CONCLUSION: Uncomplicated chest tube placement as above. Blaine Jackson MD Catheter Change 07/27/15 0000 Signed Impressions: Service Date/Time: Monday, July 27, 2015 14:43 - CONCLUSION: Uncomplicated gastrostomy tube exchange as above. Blaine Jackson MD Chest CT 07/11/15 0000 Signed Impressions: Service Date/Time: Saturday, July 11, 2015 09:49 - CONCLUSION: Scattered patchy densities significantly improved from previous study. Tiny anterior right basilar pneumothorax. Right-sided chest tube in good position. Néstor Matamoros MD Head CT 06/18/151902 Signed Impressions: Service Date/Time: June 19:31 - CONCLUSION: Diffuse atrophy unchanged. No acute intracranial findings. Kush Briscoe MD Abdomen/Pelvis CT 06/18/151902 Signed Impressions: Service Date/Time: June 19:36 - CONCLUSION: 1. Chronic nonspecific urinary bladder wall thickening. Bladder collapsed with Avldez catheter in place. 2. Chronic bilateral mid to lower lung zone groundglass opacity. 3. Nonobstructing left renal calculus. 4. Distended rectum. Kush Briscoe MD Objective Remarks GENERAL: Cachectic patient with limbs contracted. Eyes open. SKIN: Warm and dry. HEAD: Normocephalic. EYES: No scleral icterus. No injection or drainage. NECK: 8.0 Distal XLT trach in place CARDIOVASCULAR: Regular rate and rhythm without murmurs, gallops, or rubs. RESPIRATORY: coarse breath sounds. GASTROINTESTINAL: Abdomen soft, non-tender, nondistended. MUSCULOSKELETAL: Contracted limbs. Wound on lower back currently bandaged. Procedures 07/26- PEG replacement 07/29- right pigtail catheter placement for new pneumothorax Medications and IVs Current Medications Medications (Trade) Dose Ordered Sig/Jassi Route Start Time Stop Time Status Last Admin (NS Flush) 2 ml UNSCH PRN IVF 06/18/15 21:30 02/01/16 03:04 (NS Flush) 2 ml BID IVF 06/19/15 09:00 02/15/16 09:45 (Tylenol 650 Mg/ 20 ml Liq) 650 mg Q6H PRN TUBE 06/18/15 21:30 02/13/16 03:00 (Tears Naturale Opth Soln) 1 drop TID EACH EYE 06/19/15 09:00 02/15/16 13:34 (Zofran Inj) 4 mg Q6H PRN IV 06/18/15 21:30 11/26/15 11:54 (Neurontin) 300 mg BID G-TUBE 06/19/15 09:00 02/15/16 09:44 (Lactinex) 1 tab TID PO 06/19/15 09:00 02/15/16 13:34 (Paxil) 20 mg DAILY G-TUBE 06/19/15 09:00 02/15/16 09:44 (Pill Splitter) 1 ea UNSCH PRN OTHER 06/19/15 03:30 06/28/15 09:35 (Prevacid Odt) 30 mg DAILY NG 07/08/15 09:00 02/15/16 09:45 (Morphine Inj) 2 mg Q3H PRN IV PUSH 07/28/15 00:45 02/14/16 13:09 (Lovenox Inj) 40 mg Q24H SQ 08/09/15 22:00 02/14/16 21:25 ([place] 5-325 Mg) 1 tab Q6H PRN PO 08/15/15 15:45 02/15/16 13:36 (Sublimaze Inj) 50 mcg Q2H PRN IV PUSH 08/15/15 15:45 01/15/16 13:10 (Santyl Oint) 1 applic DAILY TOP 08/21/15 09:00 02/15/16 09:45 (Levsin Liq) 0.125 mg Q4H PRN PO 09/06/15 11:00 02/03/16 07:31 (D50w (Vial) Inj) 25 ml UNSCH PRN IV PUSH 10/12/15 17:30 01/06/16 20:14 (Glucagon Inj) 1 mg UNSCH PRN OTHER 10/12/15 17:30 (NovoLIN R SUPPLEMENTAL SCALE) 1 Q6H SQ 10/12/15 18:00 02/09/16 06:21 (Proamatine) 2.5 mg BID G-TUBE 11/15/15 21:00 02/15/16 09:45 (Brethine Inj) 1 mg UNSCH PRN SQ 12/06/15 06:45 (Ativan Inj) 1 mg Q3HR PRN IVP 12/15/15 17:00 02/14/16 13:06 (Deltasone) 2.5 mg DAILY PO 12/23/15 09:00 02/15/16 09:45 (Free Water) 200 ml Q6HR G-TUBE 01/03/16 18:00 02/15/16 12:00 (KCl 40 Meq/30 ml Liq) 20 meq DAILY GT 01/08/16 17:00 02/15/16 09:45 (Urecholine) 10 mg Q8HR PO 01/13/16 22:00 02/15/16 13:34 (Sinemet 25-100 Mg) 1.5 tab QID GT 01/14/16 21:00 02/15/16 13:34 (ZyPREXA) 2.5 mg Q48H GT 01/21/16 21:00 02/14/16 21:26 (Peridex 0.12% Liq) 15 ml BID@,20 MT 02/04/16 10:20 02/15/16 09:44 Date of Insertion: Jan 27, 2016 A/P Problem List: (1) Sepsis due to urinary tract infection ICD Code: A41.9 Status: Resolved (2) Acute respiratory failure ICD Code: J96.00 Status: Resolved (3) Chronic respiratory failure ICD Code: J96.10 Status: Chronic (4) Parkinson disease ICD Code: G20 Status: Chronic (5) UTI (urinary tract infection) ICD Code: N39.0 Status: Acute (6) Encephalopathy ICD Code: G93.40 Status: Resolved Assessment and Plan S/P Septic shock Recurrent aspiration pneumonitis. Klebsiella and Pseudomonas.- previously new sputum growing gram negative rods Leukocytosis- afebrile- WBC up to 25,000 (on po prednisone tapered down to 2.5 mg daily) Candiduria- repeat C and s pending (specimen sent from [facility]- changed ) - S/P Zosyn. S/P Vancomycin and Levaquin course. CXR unchanged -clinically copious secretions requiring suctioning thick greenish sputum- culture- Pseudomonas -sputum specimen sent- growing gram negative rods - final C and s pending - urine C and S- Heena - diflucan x 5 days (start date 01/26) Tobramycin nebulization d/c 02/11/16. Febrile to 101 02/11. Continue to monitor and benton-culture if recurs. Afebrile 02/14. -ID signed off Chronic respiratory failure Chronic tracheostomy. Tolerated T piece. S/P recurrent right pneumothorax status post pigtail catheter removal. Currently on 35% oxygen 02/15/16. CXR stable. - pulmonology ff. continue bipap at night. - Suction secretions and Levsin as needed - on po steroids- Prednisone 2.5 mg po daily - Duo nebs 4 times a day and when necessary. S/p colistin nebs and Solumedrol. Metabolic Encephalopathy Parkinson's disease underlying. neuro consulted . CT head 06/18/15: - diffuse atrophy unchanged. No acute intracranial findings. - Continue cognitive efforts and pain meds. - Parkinson's medication increased by neurology. Have decreased antipsychotics to QOD dosing. Now off antipsychotics - continue to wean clonazepam. Changed to q 48 hours 02/13. Malnutrition/protein calorie - moderate Status post PEG. Concern for hematemesis 12/05. GI evaluated pt. Gastroccult was negative and hemoglobin has been stable. J tube not functioning 02/11. - Current Colace/senna for bowel regimen. - continue PPI.- Prevacid. - IR cleared J tube 02/12/16. Will ask dietary to recommend another tube feed, hoping it will be less prone to clogging the tube than the current tube feed. Flushes between meds were recommended. The pt will remain on the same TFs. Bilateral lower extremity Contractures Stage II DU. - Wound care team following. - Continue physical therapy. - turn q 2 hours. GI prophylaxis: PPI. Stool softener PRN constipation. DVT PPx: Lovenox Discharge Planning Awaiting clinical improvement. Problem Qualifiers (1) Chronic respiratory failure: Qualified Code: J96.10 - Chronic respiratory failure, unspecified whether with hypoxia or hypercapnia Salazar Santa DO Feb 15, 2016 13:56
--- NOTE | 2016-02-15 19:51 | HHI.PR ---
Subjective Remarks Awake , and 0n a T bar FIO2 30 % .On Bipap at HS. On tube feeds at 40 CC .O2 Sat 97. Trying to talk. Objective Vital Signs Date Time Temp Pulse Resp B/P Pulse Ox O2 Delivery O2 Flow Rate FiO2 02/15/16 14:00 96.0 80 16 121/74 100 02/15/16 12:00 97.0 86 18 125/75 99 02/15/16 11:25 98 T-piece 35 02/15/16 08:20 Blow By 6.00 28 T-Piece 02/15/16 08:00 98.2 66 20 111/69 99 02/15/16 05:06 97.8 51 18 94/67 100 02/15/16 03:07 97 30 02/14/16 23:33 98.2 78 22 93/55 96 02/14/16 23:27 96 30 02/14/16 21:30 98 30 02/14/16 21:30 98 BiPAP 30 02/14/16 20:23 98.6 82 20 103/78 95 02/14/16 20:00 T-Piece 28 Humidified I/O 02/14/16 02/14/16 02/14/16 02/15/16 02/15/16 02/15/16 07:00 15:00 23:00 07:00 15:00 23:00 Intake Total 587 ml 1377 ml 511 ml Output Total 400 ml 400 ml 750 ml 400 ml Balance 187 ml -400 ml 1377 ml -239 ml -400 ml IV Total 0 ml 0 ml 0 ml Tube Feeding 387 ml 777 ml 311 ml Other 200 ml 600 ml 200 ml Output Urine Total 400 ml 400 ml 750 ml 400 ml # Bowel Movements 2 1 2 2 Result Diagram: 02/11/16 0752 02/13/16 0647 Objective Remarks This is a thin white male who is , awake with a trach tube in place. HEENT: Pupils are equal and reactive to light. CHEST:Decreased breath sounds,with Occ wheezes and Occ basal crackles . CARDIOVASCULAR: S1 and S2 is normal.No murmur. ABDOMEN: Soft, nondistended. BS +. He has a PEG tube in place. EXTREMITIES: Contractures.muscle wasting. NEURO: Awake and has weak extremities.Trying to verbalize. Skin is warm. Assessment and Plan Assessment and Plan IMPRESSION 1. Chronic Respiratory failure. 2. Sepsis, Aspiration. Improved 3. Left basal Pneumonia, Resolved 4. Tracheobronchitis 5. Parkinson's disease 6. Dementia. 7. Severe Deconditioning. Plan : 1. Continue on Bipap 06/20, FIo2 30 % at 10 pm to 7 am. 2. Nebs Bid , duoneb. 3. Cont tube feeds Jevity at 45 CC 4. T Bar 35 % daytime. 5. CXR in am 6. Cont Trach toilet and lavage. 7. Postural drainage tid 1 Darren Kiser MD Feb 15, 2016 19:50
[2016-02-15] MEDS: ENOXAPARIN SODIUM 40 MG/0.4 ML SYRINGE SQ SCH (22:07)
[2016-02-16] VITALS (11 sets, daily range): BP systolic 82–170; BP diastolic 53–75; PULSE 79–100; RESP 20–26; TEMP 95.8–98.7; O2SAT 94–100
[2016-02-16] MEDS: FREE WATER G-TUBE SCH ×5 (01:04→23:46)
[2016-02-16] MEDS: INSULIN NovoLIN REGULAR SUPPLEMENTAL SCALE SQ SCH ×5 (04:50→23:46)
[2016-02-16] MEDS: BETHANECHOL CHL 10 MG TAB PO SCH ×3 (04:54→22:38)
--- NOTE | 2016-02-16 07:12 | RADRPT ---
EXAM DATE/TIME: 02/16/2016 06:05 [facility] COMPARISON: CHEST SINGLE AP, February 10, 2016, 9:08. INDICATIONS : Short of breath, evaluate infiltrate MEDICAL HISTORY : Hypertension. Gastroesophageal reflux disease. Diabetes mellitus type II. SURGICAL HISTORY : tracheostomy ENCOUNTER: Subsequent ACUITY: 4 - 6 months PAIN SCORE: Non-responsive. LOCATION: Bilateral chest FINDINGS: Patchy infiltrates are again seen midlung and upper lung predominant, not significantly changed. No l arge effusion demonstrated. No pneumothorax. Heart size stable, normal. Tracheostomy again noted. CONCLUSION: No significant change. Erlin Escobar MD on February 16, 2016 at 7:08 Board Certified Radiologist. This report was verified electronically.
[2016-02-16] MEDS: POTASSIUM CL 40 MEQ/30 ML LIQ UDC GT SCH (09:00)
[2016-02-16] MEDS: COLLAGENASE OINT 30 GM TUBE TOP SCH (09:00)
[2016-02-16] MEDS: ARTIFICIAL TEARS OPTH SOLN 15 ML BTL EACH EYE SCH ×2 (09:00→15:01)
[2016-02-16] MEDS: CHLORHEXIDINE GLUCONATE 0.12% 30 ML CUP MT SCH ×2 (11:11→22:37)
[2016-02-16] MEDS: CARBIDOPA/LEVODOPA 25 MG/100 MG TAB GT SCH ×4 (11:15→22:37)
[2016-02-16] MEDS: PARoxetine HCL 20 MG TAB G-TUBE SCH (11:15)
[2016-02-16] MEDS: SODIUM CHLORIDE 0.9% FLUSH 5 ML FLUSH IVF SCH ×2 (11:15→22:38)
[2016-02-16] MEDS: clonazePAM 0.5 MG TAB PO SCH (11:16)
[2016-02-16] MEDS: GABAPENTIN 300 MG CAP G-TUBE SCH ×2 (11:16→22:38)
[2016-02-16] MEDS: LANSOPRAZOLE SOLUTAB 30 MG TAB NG SCH (11:17)
[2016-02-16] MEDS: predniSONE 5 MG TAB PO SCH (11:17)
[2016-02-16] MEDS: LACTOBACILLUS ACIDOPHILUS TAB PO SCH ×3 (11:17→19:18)
[2016-02-16] MEDS: MIDODRINE 5 MG TAB G-TUBE SCH ×2 (11:17→22:38)
--- NOTE | 2016-02-16 14:48 | HHI.PR ---
Subjective Remarks Follow up respiratory failure, encephalopathy. No events overnight per nursing. Patient continues to require suction. Objective Vitals Vital Signs Date Time Temp Pulse Resp B/P Pulse Ox O2 Delivery O2 Flow Rate FiO2 02/16/16 13:00 98 30 02/16/16 12:00 95.8 79 26 128/75 94 02/16/16 10:49 97 30 02/16/16 10:30 95 BiPAP 30 02/16/16 08:00 98.5 82 26 170/60 94 02/16/16 04:00 98.4 97 20 123/72 95 02/16/16 03:21 98 30 02/16/16 03:21 98 BiPAP 30 02/16/16 00:00 98.7 100 20 127/74 95 02/15/16 21:15 99 30 02/15/16 20:00 97.5 86 20 124/75 94 02/15/16 20:00 T-Piece 6.00 35 Humidified I/O 02/15/16 02/15/16 02/15/16 02/16/16 02/16/16 02/16/16 06:59 14:59 22:59 06:59 14:59 22:59 Intake Total 511 ml Output Total 750 ml 400 ml 500 ml Balance -239 ml -400 ml -500 ml IV Total 0 ml Tube Feeding 311 ml Other 200 ml Output Urine Total 750 ml 400 ml 500 ml # Bowel Movements 2 2 Result Diagram: 02/13/16 0647 Imaging Last Impressions Chest X-Ray 02/16/16 0600 Signed Impressions: Service Date/Time: Tuesday, February 16, 2016 06:05 - CONCLUSION: No significant change. Erlin Escobar MD Tube Change 02/03/16 0000 Signed Impressions: Service Date/Time: Wednesday, February 03, 2016 17:13 - CONCLUSION: Uncomplicated gastrojejunostomy tube exchange as above. This is a recurrent occlusion with this tube. We will institute Q8 hour flushing of the tube with warm water. Tai Taylor Jr., MD Gastrostomy Tube Change 01/15/16 0000 Signed Impressions: Service Date/Time: Friday, January 15, 2016 12:28 - CONCLUSION: Successful GJ tube exchange as above. Scott Goode MD Abdomen X-Ray 01/12/16 1628 Signed Impressions: Service Date/Time: Tuesday, January 12, 2016 17:35 - CONCLUSION: No evidence of obstruction or free air. Reyes Jewell MD Abdomen Ultrasound 12/06/15 0000 Signed Impressions: Service Date/Time: Sunday, December 06, 2015 17:42 - CONCLUSION: 1. The gallbladder is unremarkable with no evidence of cholelithiasis. 2. Simple cyst in the left kidney. 3. Mild pyelocaliectasis in the right kidney. Salazar Thurman MD Upper Extremity Ultrasound 10/13/15 0000 Signed Impressions: Service Date/Time: Tuesday, October 13, 2015 09:51 - CONCLUSION: 1. No evidence of deep venous thrombosis. John Anderson MD Renal Ultrasound 10/07/15 0000 Signed Impressions: Service Date/Time: Wednesday, October 07, 2015 18:29 - CONCLUSION: 1. No acute findings. 3.6 cm left renal cyst. Putnam catheter in bladder. Amaury Ellsworth MD Tunnelled Chest Tube Removal 08/05/15 1100 Signed Impressions: Service Date/Time: Wednesday, August 05, 2015 11:00 - CONCLUSION: Uncomplicated chest tube removal. Blaine Jackson MD Chest Tube Change 07/31/15 0000 Signed Impressions: Service Date/Time: Friday, July 31, 2015 14:34 - CONCLUSION: Uncomplicated reposition of previously placed chest tube as above. Blaine Jackson MD Chest Tube Insertion 07/30/15 0000 Signed Impressions: Service Date/Time: July 14:50 - CONCLUSION: Uncomplicated chest tube placement as above. Blaine Jackson MD Catheter Change 07/27/15 0000 Signed Impressions: Service Date/Time: Monday, July 27, 2015 14:43 - CONCLUSION: Uncomplicated gastrostomy tube exchange as above. Blaine Jackson MD Chest CT 07/11/15 0000 Signed Impressions: Service Date/Time: Saturday, July 11, 2015 09:49 - CONCLUSION: Scattered patchy densities significantly improved from previous study. Tiny anterior right basilar pneumothorax. Right-sided chest tube in good position. Néstor Matamoros MD Head CT 06/18/15 300 Signed Impressions: Service Date/Time: June 19:31 - CONCLUSION: Diffuse atrophy unchanged. No acute intracranial findings. Kush Briscoe MD Abdomen/Pelvis CT 06/18/15 1900 Signed Impressions: Service Date/Time: June 19:36 - CONCLUSION: 1. Chronic nonspecific urinary bladder wall thickening. Bladder collapsed with Putnam catheter in place. 2. Chronic bilateral mid to lower lung zone groundglass opacity. 3. Nonobstructing left renal calculus. 4. Distended rectum. Kush Briscoe MD Objective Remarks General: Thin male in no acute distress. Heart: Regular rate and rhythm. No murmur. Lungs: Coarse breath sounds bilaterally. Breathing is nonlabored. Tracheostomy. Abdomen: Soft, nontender, nondistended. Extremities: No lower extremity edema. SCDs. Contractures of upper extremities. Psych: Nonverbal. Neuro: Does not follow commands. Does not track. Opens eyes to verbal stimuli. Procedures 07/26- PEG replacement 07/29- right pigtail catheter placement for new pneumothorax Urinary Catheter: No Vascular Central Line Catheter: No A/P Problem List: (1) Sepsis due to urinary tract infection ICD Code: A41.9 Status: Resolved (2) Acute respiratory failure ICD Code: J96.00 Status: Resolved (3) Chronic respiratory failure ICD Code: J96.10 Status: Chronic (4) Parkinson disease ICD Code: G20 Status: Chronic (5) UTI (urinary tract infection) ICD Code: N39.0 Status: Acute (6) Encephalopathy ICD Code: G93.40 Status: Resolved Assessment and Plan 1. Status post septic shock: Resolved. 2. Recurrent aspiration pneumonitis: Sputum cultures have been positive for Klebsiella, Pseudomonas. Repeat sputum culture growing gram-negative rods. 3. Leukocytosis: Patient remains afebrile. 4. Candiduria: Putnam catheter changed 01/26/16. Status post treatment with Diflucan. 5. Chronic respiratory failure: Tracheostomy. Tolerating TPs. BiPAP at night. Appreciate pulmonology recommendations. Regions. Levsin as needed. Continue prednisone. DuoNeb's scheduled and as needed. 6. Metabolic encephalopathy: Appreciate neurology recommendations. Continue treatment for Parkinson's disease. Weaned off antipsychotics. Continue to wean clonazepam. 7. Moderate protein calorie malnutrition: Peg tube placed. Evaluated by GI. Continue bowel regimen. Continue tube feeds. 8. Bilateral lower extremity contractures: Continue PT. 9. Stage II decubitus ulcer: Continue wound care. Turn every 2 hours. 10. DVT prophylaxis: Lovenox. Problem Qualifiers (1) Chronic respiratory failure: Qualified Code: J96.10 - Chronic respiratory failure, unspecified whether with hypoxia or hypercapnia German Bernal MD Feb 16, 2016 14:47
--- NOTE | 2016-02-16 20:26 | HHI.PR ---
Subjective Remarks Awake , and 0n a T bar FIO2 28 % .On Bipap at HS. On tube feeds at 40 CC .O2 Sat 97. No change in neuro status Objective Vital Signs Date Time Temp Pulse Resp B/P Pulse Ox O2 Delivery O2 Flow Rate FiO2 02/16/16 16:00 97.1 81 26 97/53 96 02/16/16 13:00 98 30 02/16/16 12:00 95.8 79 26 128/75 94 02/16/16 10:49 97 30 02/16/16 10:30 95 BiPAP 30 02/16/16 08:00 98.5 82 26 170/60 94 02/16/16 04:00 98.4 97 20 123/72 95 02/16/16 03:21 98 30 02/16/16 03:21 98 BiPAP 30 02/16/16 00:00 98.7 100 20 127/74 95 02/15/16 21:15 99 30 I/O 02/15/16 02/15/16 02/15/16 02/16/16 02/16/16 02/16/16 07:00 15:00 23:00 07:00 15:00 23:00 Intake Total 511 ml Output Total 750 ml 400 ml 500 ml 300 ml Balance -239 ml -400 ml -500 ml -300 ml IV Total 0 ml Tube Feeding 311 ml Other 200 ml Output Urine Total 750 ml 400 ml 500 ml 300 ml # Bowel Movements 2 2 1 Result Diagram: 02/13/16 0647 Objective Remarks This is a thin white male who is , awake with a trach tube in place. HEENT: Pupils are equal and reactive to light. CHEST:Decreased breath sounds,with Occ wheezes + CARDIOVASCULAR: S1 and S2 is normal.No murmur. ABDOMEN: Soft, nondistended. BS +. He has a PEG tube in place. EXTREMITIES: Contractures.muscle wasting. NEURO: Awake and has weak extremities.Trying to verbalize. Skin is warm. Assessment and Plan Assessment and Plan IMPRESSION 1. Chronic Respiratory failure. 2. Sepsis, Aspiration. Improved 3. Left basal Pneumonia, Resolved 4. Tracheobronchitis 5. Parkinson's disease 6. Dementia. 7. Severe Deconditioning. Plan : 1. Continue on Bipap 06/20, FIo2 30 % at 10 pm to 7 am. 2. Nebs Bid , duoneb. 3. Cont tube feeds Jevity at 45 CC 4. T Bar 30 % daytime. 5. Labs in am 6. Cont Trach toilet and lavage. 7. Postural drainage tid 1 Darren Kiser MD Feb 16, 2016 20:26
[2016-02-16] MEDS: ENOXAPARIN SODIUM 40 MG/0.4 ML SYRINGE SQ SCH (22:37)
[2016-02-16] MEDS: OLANZapine 2.5 MG TAB GT SCH (22:38)
[2016-02-17] VITALS (10 sets, daily range): BP systolic 100–128; BP diastolic 40–79; PULSE 74–102; RESP 21–34; TEMP 96.5–98; O2SAT 92–100
[2016-02-17] MEDS: INSULIN NovoLIN REGULAR SUPPLEMENTAL SCALE SQ SCH ×2 (06:00→12:00)
[2016-02-17] MEDS: FREE WATER G-TUBE SCH ×3 (06:00→23:10)
[2016-02-17] MEDS: BETHANECHOL CHL 10 MG TAB PO SCH ×2 (06:12→22:00)
[2016-02-17] MEDS: CHLORHEXIDINE GLUCONATE 0.12% 30 ML CUP MT SCH ×2 (08:00→20:00)
[2016-02-17] MEDS: POTASSIUM CL 40 MEQ/30 ML LIQ UDC GT SCH (09:00)
[2016-02-17] MEDS: predniSONE 5 MG TAB PO SCH (09:00)
[2016-02-17] MEDS: COLLAGENASE OINT 30 GM TUBE TOP SCH (09:00)
[2016-02-17] MEDS: PARoxetine HCL 20 MG TAB G-TUBE SCH (09:00)
[2016-02-17] MEDS: LANSOPRAZOLE SOLUTAB 30 MG TAB NG SCH (10:31)
[2016-02-17] MEDS: LACTOBACILLUS ACIDOPHILUS TAB PO SCH ×3 (10:31→17:27)
[2016-02-17] MEDS: MIDODRINE 5 MG TAB G-TUBE SCH ×2 (10:31→21:00)
[2016-02-17] MEDS: GABAPENTIN 300 MG CAP G-TUBE SCH ×2 (10:31→21:00)
[2016-02-17] MEDS: SODIUM CHLORIDE 0.9% FLUSH 5 ML FLUSH IVF SCH ×2 (10:32→21:00)
[2016-02-17] MEDS: CARBIDOPA/LEVODOPA 25 MG/100 MG TAB GT SCH ×4 (10:32→21:00)
--- NOTE | 2016-02-17 12:00 | HHI.PR ---
Subjective Remarks Follow up respiratory failure, encephalopathy. Patient does not respond to verbal stimuli. No events reported. Objective Vitals Vital Signs Date Time Temp Pulse Resp B/P Pulse Ox O2 Delivery O2 Flow Rate FiO2 02/17/16 10:00 95 T-piece 28 02/17/16 08:00 96.5 74 21 116/79 98 02/17/16 04:00 97.5 80 25 128/75 94 02/17/16 00:00 97.3 102 29 101/40 92 02/16/16 22:08 100 T-Piece 28 02/16/16 22:05 98 30 02/16/16 20:00 97.8 83 20 110/75 100 02/16/16 16:00 97.1 81 26 97/53 96 02/16/16 14:00 T-Piece 6.00 35 Humidified 02/16/16 13:00 98 30 02/16/16 12:00 95.8 79 26 128/75 94 I/O 02/16/16 02/16/16 02/16/16 02/17/16 02/17/16 02/17/16 07:00 15:00 23:00 07:00 15:00 23:00 Intake Total 980 ml Output Total 500 ml 300 ml 200 ml 500 ml Balance -500 ml -300 ml -200 ml 480 ml Tube Feeding 480 ml Other 500 ml Output Urine Total 500 ml 300 ml 200 ml 500 ml # Bowel Movements 1 5 Result Diagram: 02/13/16 0647 Imaging Last Impressions Chest X-Ray 02/16/16 0600 Signed Impressions: Service Date/Time: Tuesday, February 16, 2016 06:05 - CONCLUSION: No significant change. Erlin Escobar MD Tube Change 02/03/16 0000 Signed Impressions: Service Date/Time: Wednesday, February 03, 2016 17:13 - CONCLUSION: Uncomplicated gastrojejunostomy tube exchange as above. This is a recurrent occlusion with this tube. We will institute Q8 hour flushing of the tube with warm water. Tai Taylor Jr., MD Gastrostomy Tube Change 01/15/16 0000 Signed Impressions: Service Date/Time: Friday, January 15, 2016 12:28 - CONCLUSION: Successful GJ tube exchange as above. Scott Goode MD Abdomen X-Ray 01/12/16 1628 Signed Impressions: Service Date/Time: Tuesday, January 12, 2016 17:35 - CONCLUSION: No evidence of obstruction or free air. Reyes Jewell MD Abdomen Ultrasound 12/06/15 0000 Signed Impressions: Service Date/Time: Sunday, December 06, 2015 17:42 - CONCLUSION: 1. The gallbladder is unremarkable with no evidence of cholelithiasis. 2. Simple cyst in the left kidney. 3. Mild pyelocaliectasis in the right kidney. Salazar Thurman MD Upper Extremity Ultrasound 10/13/15 0000 Signed Impressions: Service Date/Time: Tuesday, October 13, 2015 09:51 - CONCLUSION: 1. No evidence of deep venous thrombosis. John Anderson MD Renal Ultrasound 10/07/15 0000 Signed Impressions: Service Date/Time: Wednesday, October 07, 2015 18:29 - CONCLUSION: 1. No acute findings. 3.6 cm left renal cyst. Putnam catheter in bladder. Amaury Ellsworth MD Tunnelled Chest Tube Removal 08/05/15 1100 Signed Impressions: Service Date/Time: Wednesday, August 05, 2015 11:00 - CONCLUSION: Uncomplicated chest tube removal. Blaine Jackson MD Chest Tube Change 07/31/15 0000 Signed Impressions: Service Date/Time: Friday, July 31, 2015 14:34 - CONCLUSION: Uncomplicated reposition of previously placed chest tube as above. Blaine Jackson MD Chest Tube Insertion 07/30/15 0000 Signed Impressions: Service Date/Time: July 14:50 - CONCLUSION: Uncomplicated chest tube placement as above. Blaine Jackson MD Catheter Change 07/27/15 0000 Signed Impressions: Service Date/Time: Monday, July 27, 2015 14:43 - CONCLUSION: Uncomplicated gastrostomy tube exchange as above. Blaine Jackson MD Chest CT 07/11/15 0000 Signed Impressions: Service Date/Time: Saturday, July 11, 2015 09:49 - CONCLUSION: Scattered patchy densities significantly improved from previous study. Tiny anterior right basilar pneumothorax. Right-sided chest tube in good position. Néstor Matamoros MD Head CT 06/18/15 443 Signed Impressions: Service Date/Time: June 19:31 - CONCLUSION: Diffuse atrophy unchanged. No acute intracranial findings. Kush Briscoe MD Abdomen/Pelvis CT 06/18/15 1903 Signed Impressions: Service Date/Time: June 19:36 - CONCLUSION: 1. Chronic nonspecific urinary bladder wall thickening. Bladder collapsed with Putnam catheter in place. 2. Chronic bilateral mid to lower lung zone groundglass opacity. 3. Nonobstructing left renal calculus. 4. Distended rectum. Kush Briscoe MD Objective Remarks General: Thin male in no acute distress. Heart: Regular rate and rhythm. No murmur. Lungs: Coarse breath sounds bilaterally. Breathing is nonlabored. Tracheostomy. Abdomen: Soft, nontender, nondistended. Extremities: No lower extremity edema. SCDs. Contractures of upper extremities. Psych: Nonverbal. Neuro: Does not follow commands. Does not track. Opens eyes to verbal stimuli. Procedures 07/26- PEG replacement 07/29- right pigtail catheter placement for new pneumothorax Urinary Catheter: Yes Assessment to: Continue Putnam insert reason: Prolonged Immobilization Vascular Central Line Catheter: No A/P Problem List: (1) Sepsis due to urinary tract infection ICD Code: A41.9 Status: Resolved (2) Acute respiratory failure ICD Code: J96.00 Status: Resolved (3) Chronic respiratory failure ICD Code: J96.10 Status: Chronic (4) Parkinson disease ICD Code: G20 Status: Chronic (5) UTI (urinary tract infection) ICD Code: N39.0 Status: Acute (6) Encephalopathy ICD Code: G93.40 Status: Resolved Assessment and Plan Reviewed/updated 02/17/16. No change. 1. Status post septic shock: Resolved. 2. Recurrent aspiration pneumonitis: Sputum cultures have been positive for Klebsiella, Pseudomonas. Repeat sputum culture growing gram-negative rods. 3. Leukocytosis: Patient remains afebrile. 4. Candiduria: Putnam catheter changed 01/26/16. Status post treatment with Diflucan. 5. Chronic respiratory failure: Tracheostomy. Tolerating T-piece. BiPAP at night. Appreciate pulmonology recommendations. Levsin as needed. Continue prednisone. DuoNeb's scheduled and as needed. 6. Metabolic encephalopathy: Appreciate neurology recommendations. Continue treatment for Parkinson's disease. Weaned off antipsychotics. Continue to wean clonazepam. 7. Moderate protein calorie malnutrition: Peg tube placed. Evaluated by GI. Continue bowel regimen. Continue tube feeds. 8. Bilateral lower extremity contractures: Continue PT. 9. Stage II decubitus ulcer: Continue wound care. Turn every 2 hours. 10. DVT prophylaxis: Lovenox. Problem Qualifiers (1) Chronic respiratory failure: Qualified Code: J96.10 - Chronic respiratory failure, unspecified whether with hypoxia or hypercapnia German Bernal MD Feb 17, 2016 12:00
[2016-02-17] MEDS: ARTIFICIAL TEARS OPTH SOLN 15 ML BTL EACH EYE SCH (13:06)
[2016-02-17] MEDS: ENOXAPARIN SODIUM 40 MG/0.4 ML SYRINGE SQ SCH (22:00)
[2016-02-18] VITALS (12 sets, daily range): BP systolic 93–146; BP diastolic 56–84; PULSE 71–99; RESP 20–28; TEMP 97.1–98.6; O2SAT 95–100
[2016-02-18] MEDS: FREE WATER G-TUBE SCH ×3 (06:00→16:58)
[2016-02-18] MEDS: INSULIN NovoLIN REGULAR SUPPLEMENTAL SCALE SQ SCH ×4 (06:00→18:00)
[2016-02-18] MEDS: BETHANECHOL CHL 10 MG TAB PO SCH ×3 (06:23→20:54)
[2016-02-18] MEDS: ARTIFICIAL TEARS OPTH SOLN 15 ML BTL EACH EYE SCH ×4 (09:47→16:58)
[2016-02-18] MEDS: PARoxetine HCL 20 MG TAB G-TUBE SCH (09:48)
[2016-02-18] MEDS: MIDODRINE 5 MG TAB G-TUBE SCH ×2 (09:48→20:53)
[2016-02-18] MEDS: LACTOBACILLUS ACIDOPHILUS TAB PO SCH ×3 (09:48→16:58)
[2016-02-18] MEDS: GABAPENTIN 300 MG CAP G-TUBE SCH ×2 (09:48→20:53)
[2016-02-18] MEDS: POTASSIUM CL 40 MEQ/30 ML LIQ UDC GT SCH (09:48)
[2016-02-18] MEDS: CARBIDOPA/LEVODOPA 25 MG/100 MG TAB GT SCH ×4 (09:49→20:53)
[2016-02-18] MEDS: predniSONE 5 MG TAB PO SCH (09:49)
[2016-02-18] MEDS: SODIUM CHLORIDE 0.9% FLUSH 5 ML FLUSH IVF SCH ×2 (09:49→20:54)
[2016-02-18] MEDS: LANSOPRAZOLE SOLUTAB 30 MG TAB NG SCH (09:49)
[2016-02-18] MEDS: clonazePAM 0.5 MG TAB PO SCH (09:49)
[2016-02-18] MEDS: COLLAGENASE OINT 30 GM TUBE TOP SCH (09:50)
[2016-02-18] MEDS: HYOSCYAMINE SOLN 0.125 MG/ML 15 ML BTL PO PRN ×2 (09:50→21:02)
[2016-02-18] MEDS: CHLORHEXIDINE GLUCONATE 0.12% 30 ML CUP MT SCH ×2 (09:51→20:54)
--- NOTE | 2016-02-18 13:57 | HHI.PR ---
Subjective Remarks Follow up encephalopathy, respiratory failure. Patient's breathing is more labored today. O2 saturations decreased. On BiPAP now. Objective Vitals Vital Signs Date Time Temp Pulse Resp B/P Pulse Ox O2 Delivery O2 Flow Rate FiO2 02/18/16 12:23 98.1 78 20 95/56 96 02/18/16 08:16 98.6 71 20 103/63 99 02/18/16 07:52 100 T-piece 6.00 28 02/18/16 06:09 97.6 83 24 109/79 100 02/18/16 00:57 96 50 02/18/16 00:00 97.1 97 24 103/66 99 02/17/16 22:08 100 Bi-Pap 50 02/17/16 20:05 100 50 02/17/16 20:05 100 BiPAP 50 02/17/16 20:00 97.6 81 24 110/73 95 02/17/16 18:19 96 70 02/17/16 18:17 95 BiPAP 70 02/17/16 16:00 98.0 88 34 100/71 93 I/O 02/17/16 02/17/16 02/17/16 02/18/16 02/18/16 02/18/16 06:59 14:59 22:59 06:59 14:59 22:59 Intake Total 980 ml Output Total 500 ml 300 ml 300 ml 150 ml Balance 480 ml -300 ml -300 ml -150 ml Tube Feeding 480 ml Other 500 ml Output Urine Total 500 ml 300 ml 300 ml 150 ml # Bowel Movements 0 0 Imaging Last Impressions Chest X-Ray 02/16/16 0600 Signed Impressions: Service Date/Time: Tuesday, February 16, 2016 06:05 - CONCLUSION: No significant change. Erlin Escobar MD Tube Change 02/03/16 0000 Signed Impressions: Service Date/Time: Wednesday, February 03, 2016 17:13 - CONCLUSION: Uncomplicated gastrojejunostomy tube exchange as above. This is a recurrent occlusion with this tube. We will institute Q8 hour flushing of the tube with warm water. Tai Taylor Jr., MD Gastrostomy Tube Change 01/15/16 0000 Signed Impressions: Service Date/Time: Friday, January 15, 2016 12:28 - CONCLUSION: Successful GJ tube exchange as above. Scott Goode MD Abdomen X-Ray 01/12/16 1628 Signed Impressions: Service Date/Time: Tuesday, January 12, 2016 17:35 - CONCLUSION: No evidence of obstruction or free air. Reyes Jewell MD Abdomen Ultrasound 12/06/15 0000 Signed Impressions: Service Date/Time: Sunday, December 06, 2015 17:42 - CONCLUSION: 1. The gallbladder is unremarkable with no evidence of cholelithiasis. 2. Simple cyst in the left kidney. 3. Mild pyelocaliectasis in the right kidney. Salazar Thurman MD Upper Extremity Ultrasound 10/13/15 0000 Signed Impressions: Service Date/Time: Tuesday, October 13, 2015 09:51 - CONCLUSION: 1. No evidence of deep venous thrombosis. John Anderson MD Renal Ultrasound 10/07/15 0000 Signed Impressions: Service Date/Time: Wednesday, October 07, 2015 18:29 - CONCLUSION: 1. No acute findings. 3.6 cm left renal cyst. Putnam catheter in bladder. Amaury Ellsworth MD Tunnelled Chest Tube Removal 08/05/15 1100 Signed Impressions: Service Date/Time: Wednesday, August 05, 2015 11:00 - CONCLUSION: Uncomplicated chest tube removal. Blaine Jackson MD Chest Tube Change 07/31/15 0000 Signed Impressions: Service Date/Time: Friday, July 31, 2015 14:34 - CONCLUSION: Uncomplicated reposition of previously placed chest tube as above. Blaine Jackson MD Chest Tube Insertion 07/30/15 0000 Signed Impressions: Service Date/Time: July 14:50 - CONCLUSION: Uncomplicated chest tube placement as above. Blaine Jackson MD Catheter Change 07/27/15 0000 Signed Impressions: Service Date/Time: Monday, July 27, 2015 14:43 - CONCLUSION: Uncomplicated gastrostomy tube exchange as above. Blaine Jackson MD Chest CT 07/11/15 0000 Signed Impressions: Service Date/Time: Saturday, July 11, 2015 09:49 - CONCLUSION: Scattered patchy densities significantly improved from previous study. Tiny anterior right basilar pneumothorax. Right-sided chest tube in good position. Néstor Matamoros MD Head CT 06/18/15 443 Signed Impressions: Service Date/Time: June 19:31 - CONCLUSION: Diffuse atrophy unchanged. No acute intracranial findings. Kush Briscoe MD Abdomen/Pelvis CT 06/18/15 1903 Signed Impressions: Service Date/Time: June 19:36 - CONCLUSION: 1. Chronic nonspecific urinary bladder wall thickening. Bladder collapsed with Putnam catheter in place. 2. Chronic bilateral mid to lower lung zone groundglass opacity. 3. Nonobstructing left renal calculus. 4. Distended rectum. Kush Briscoe MD Objective Remarks General: Thin male. Appears short of breath. Heart: Regular rate and rhythm. No murmur. Lungs: Coarse breath sounds bilaterally. Breathing is labored. Tracheostomy. On BiPAP. Abdomen: Soft, nontender, nondistended. Extremities: No lower extremity edema. SCDs. Contractures of upper extremities. Psych: Nonverbal. Neuro: Does not follow commands. Does not track. Procedures 07/26- PEG replacement 07/29- right pigtail catheter placement for new pneumothorax Urinary Catheter: Yes Assessment to: Continue Putnam insert reason: Measure Accurate Output Vascular Central Line Catheter: No A/P Problem List: (1) Sepsis due to urinary tract infection ICD Code: A41.9 Status: Resolved (2) Acute respiratory failure ICD Code: J96.00 Status: Acute (3) Chronic respiratory failure ICD Code: J96.10 Status: Chronic (4) Parkinson disease ICD Code: G20 Status: Chronic (5) UTI (urinary tract infection) ICD Code: N39.0 Status: Acute (6) Encephalopathy ICD Code: G93.40 Status: Resolved Assessment and Plan Reviewed/updated 02/18/16. Increased respiratory distress today. Requiring suctioning, BiPAP. 1. Status post septic shock: Resolved. 2. Recurrent aspiration pneumonitis: Sputum cultures have been positive for Klebsiella, Pseudomonas. Repeat sputum culture growing gram-negative rods. 3. Leukocytosis: Patient remains afebrile. 4. Candiduria: Putnam catheter changed 01/26/16. Status post treatment with Diflucan. 5. Chronic respiratory failure: Tracheostomy. Appreciate pulmonology recommendations. Levsin as needed. Continue prednisone. DuoNeb's scheduled and as needed. Requiring BiPAP, sectioning. 6. Metabolic encephalopathy: Appreciate neurology recommendations. Continue treatment for Parkinson's disease. Weaned off antipsychotics. Continue to wean clonazepam. 7. Moderate protein calorie malnutrition: Peg tube placed. Evaluated by GI. Continue bowel regimen. Continue tube feeds. 8. Bilateral lower extremity contractures: Continue PT. 9. Stage II decubitus ulcer: Continue wound care. Turn every 2 hours. 10. DVT prophylaxis: Lovenox. Discharge Planning Awaiting placement. Case management assisting with discharge planning. Problem Qualifiers (1) Chronic respiratory failure: Qualified Code: J96.10 - Chronic respiratory failure, unspecified whether with hypoxia or hypercapnia German Bernal MD Feb 18, 2016 13:57
[2016-02-18] MEDS: MORPHINE SULFATE 4 MG/ML INJ IV PUSH PRN (14:21)
[2016-02-18] MEDS: OLANZapine 2.5 MG TAB GT SCH (20:53)
[2016-02-18] MEDS: ENOXAPARIN SODIUM 40 MG/0.4 ML SYRINGE SQ SCH (20:54)
[2016-02-18] MEDS: LORazepam 2 MG/ML VIAL IVP PRN (20:57)
[2016-02-19] VITALS (11 sets, daily range): BP systolic 88–109; BP diastolic 55–72; PULSE 62–86; RESP 20–24; TEMP 95.5–97.3; O2SAT 95–100
[2016-02-19] MEDS: FREE WATER G-TUBE SCH ×5 (00:28→23:03)
[2016-02-19] MEDS: INSULIN NovoLIN REGULAR SUPPLEMENTAL SCALE SQ SCH ×5 (06:00→23:24)
[2016-02-19] MEDS: HYOSCYAMINE SOLN 0.125 MG/ML 15 ML BTL PO PRN (06:30)
[2016-02-19] MEDS: BETHANECHOL CHL 10 MG TAB PO SCH ×3 (06:31→23:02)
[2016-02-19 06:32] LABS: AUTOMATED NEUTROPHIL # 6.1 TH/MM3 (1.8-7.7); BASOPHIL # 0.1 TH/MM3 (0-0.2); BASOPHIL % 0.7 % (0.0-2.0); EOSINOPHIL # 0.4 TH/MM3 (0-0.4); EOSINOPHIL % 5.1 % (0.0-4.0); HEMO FLAGS DIFF FINAL; LYMPH % 16.4 % (9.0-44.0); LYMPHOCYTE # 1.4 TH/MM3 (1.0-4.8); MEAN CORPUSCULAR HEMOGLOBIN 27.4 PG (27.0-34.0); MEAN CORPUSCULAR HGB CONC 32.7 % (32.0-36.0); MONO % 8.4 % (0.0-8.0); NEUT % 69.4 % (16.0-70.0); PLATELET COUNT 197 TH/MM3 (150-450); RED BLOOD COUNT 4.17 MIL/MM3 (4.50-5.90); WHITE BLOOD COUNT 8.7 TH/MM3 (4.0-11.0)
[2016-02-19 06:57] LABS: BICARBONATE 32.7 MEQ/L (21.0-32.0); POTASSIUM 4.3 MEQ/L (3.5-5.1)
[2016-02-19] MEDS: CARBIDOPA/LEVODOPA 25 MG/100 MG TAB GT SCH ×4 (09:21→23:02)
[2016-02-19] MEDS: ARTIFICIAL TEARS OPTH SOLN 15 ML BTL EACH EYE SCH ×3 (09:21→17:04)
[2016-02-19] MEDS: LACTOBACILLUS ACIDOPHILUS TAB PO SCH ×3 (09:21→17:05)
[2016-02-19] MEDS: predniSONE 5 MG TAB PO SCH (09:21)
[2016-02-19] MEDS: GABAPENTIN 300 MG CAP G-TUBE SCH ×2 (09:21→23:02)
[2016-02-19] MEDS: PARoxetine HCL 20 MG TAB G-TUBE SCH (09:21)
[2016-02-19] MEDS: MIDODRINE 5 MG TAB G-TUBE SCH ×2 (09:21→23:02)
[2016-02-19] MEDS: CHLORHEXIDINE GLUCONATE 0.12% 30 ML CUP MT SCH ×2 (09:21→23:04)
[2016-02-19] MEDS: SODIUM CHLORIDE 0.9% FLUSH 5 ML FLUSH IVF SCH ×2 (09:22→23:03)
[2016-02-19] MEDS: POTASSIUM CL 40 MEQ/30 ML LIQ UDC GT SCH (09:22)
[2016-02-19] MEDS: LANSOPRAZOLE SOLUTAB 30 MG TAB NG SCH (09:22)
[2016-02-19] MEDS: COLLAGENASE OINT 30 GM TUBE TOP SCH (09:28)
[2016-02-19] MEDS: LORazepam 2 MG/ML VIAL IVP PRN (11:47)
--- NOTE | 2016-02-19 13:17 | HHI.PR ---
Subjective Remarks Follow up respiratory failure, encephalopathy. Respiratory status improved today compared to yesterday. Responded well to morphine given yesterday afternoon. Still nonverbal. Objective Vitals Vital Signs Date Time Temp Pulse Resp B/P Pulse Ox O2 Delivery O2 Flow Rate FiO2 02/19/16 12:02 96.1 70 22 97/55 100 02/19/16 10:10 95 BiPAP 50 02/19/16 10:10 95 50 02/19/16 08:24 96.0 70 22 92/61 100 02/19/16 05:56 95.5 62 22 109/60 100 02/19/16 04:48 99 50 02/19/16 00:10 98 50 02/19/16 00:00 95.8 68 24 102/60 100 02/18/16 21:30 100 50 02/18/16 20:00 97.1 99 28 115/72 100 02/18/16 16:36 100 50 02/18/16 16:33 98.1 88 22 93/68 100 02/18/16 14:15 95 50 02/18/16 14:05 146/84 I/O 02/18/16 02/18/16 02/18/16 02/19/16 02/19/16 02/19/16 07:00 15:00 23:00 07:00 15:00 23:00 Intake Total 700 ml Output Total 150 ml 450 ml 450 ml 200 ml Balance -150 ml -450 ml -450 ml -200 ml 700 ml Tube Feeding 700 ml Output Urine Total 150 ml 450 ml 450 ml 200 ml # Bowel Movements 0 1 0 0 Result Diagram: 02/19/16 0547 02/19/16 0547 Imaging Last Impressions Chest X-Ray 02/16/16 0600 Signed Impressions: Service Date/Time: Tuesday, February 16, 2016 06:05 - CONCLUSION: No significant change. Erlin Escobar MD Tube Change 02/03/16 0000 Signed Impressions: Service Date/Time: Wednesday, February 03, 2016 17:13 - CONCLUSION: Uncomplicated gastrojejunostomy tube exchange as above. This is a recurrent occlusion with this tube. We will institute Q8 hour flushing of the tube with warm water. Tai Taylor Jr., MD Gastrostomy Tube Change 01/15/16 0000 Signed Impressions: Service Date/Time: Friday, January 15, 2016 12:28 - CONCLUSION: Successful GJ tube exchange as above. Scott Goode MD Abdomen X-Ray 01/12/16 1628 Signed Impressions: Service Date/Time: Tuesday, January 12, 2016 17:35 - CONCLUSION: No evidence of obstruction or free air. Reyes Jewell MD Abdomen Ultrasound 12/06/15 0000 Signed Impressions: Service Date/Time: Sunday, December 06, 2015 17:42 - CONCLUSION: 1. The gallbladder is unremarkable with no evidence of cholelithiasis. 2. Simple cyst in the left kidney. 3. Mild pyelocaliectasis in the right kidney. Salazar Thurman MD Upper Extremity Ultrasound 10/13/15 0000 Signed Impressions: Service Date/Time: Tuesday, October 13, 2015 09:51 - CONCLUSION: 1. No evidence of deep venous thrombosis. John Anderson MD Renal Ultrasound 10/07/15 0000 Signed Impressions: Service Date/Time: Wednesday, October 07, 2015 18:29 - CONCLUSION: 1. No acute findings. 3.6 cm left renal cyst. Putnam catheter in bladder. Amaury Ellsworth MD Tunnelled Chest Tube Removal 08/05/15 1100 Signed Impressions: Service Date/Time: Wednesday, August 05, 2015 11:00 - CONCLUSION: Uncomplicated chest tube removal. Blaine Jackson MD Chest Tube Change 07/31/15 0000 Signed Impressions: Service Date/Time: Friday, July 31, 2015 14:34 - CONCLUSION: Uncomplicated reposition of previously placed chest tube as above. Blaine Jackson MD Chest Tube Insertion 07/30/15 0000 Signed Impressions: Service Date/Time: July 14:50 - CONCLUSION: Uncomplicated chest tube placement as above. Blaine Jackson MD Catheter Change 07/27/15 0000 Signed Impressions: Service Date/Time: Monday, July 27, 2015 14:43 - CONCLUSION: Uncomplicated gastrostomy tube exchange as above. Blaine Jackson MD Chest CT 07/11/15 0000 Signed Impressions: Service Date/Time: Saturday, July 11, 2015 09:49 - CONCLUSION: Scattered patchy densities significantly improved from previous study. Tiny anterior right basilar pneumothorax. Right-sided chest tube in good position. Néstor Matamoros MD Head CT 06/18/151902 Signed Impressions: Service Date/Time: June 19:31 - CONCLUSION: Diffuse atrophy unchanged. No acute intracranial findings. Kush Briscoe MD Abdomen/Pelvis CT 06/18/151902 Signed Impressions: Service Date/Time: June 19:36 - CONCLUSION: 1. Chronic nonspecific urinary bladder wall thickening. Bladder collapsed with Putnam catheter in place. 2. Chronic bilateral mid to lower lung zone groundglass opacity. 3. Nonobstructing left renal calculus. 4. Distended rectum. Kush Briscoe MD Objective Remarks General: Thin male. Appears more comfortable today. Heart: Regular rate and rhythm. No murmur. Lungs: Coarse breath sounds bilaterally. Breathing is nonlabored. Tracheostomy. On BiPAP. Abdomen: Soft, nontender, nondistended. Extremities: No lower extremity edema. SCDs. Contractures of upper extremities. Psych: Nonverbal. Neuro: Does not follow commands. Does not track. Procedures 07/26- PEG replacement 07/29- right pigtail catheter placement for new pneumothorax Urinary Catheter: Yes Assessment to: Continue Putnam insert reason: Prolonged Immobilization Vascular Central Line Catheter: No A/P Problem List: (1) Sepsis due to urinary tract infection ICD Code: A41.9 Status: Resolved (2) Acute respiratory failure ICD Code: J96.00 Status: Acute (3) Chronic respiratory failure ICD Code: J96.10 Status: Chronic (4) Parkinson disease ICD Code: G20 Status: Chronic (5) UTI (urinary tract infection) ICD Code: N39.0 Status: Acute (6) Encephalopathy ICD Code: G93.40 Status: Resolved Assessment and Plan Reviewed/updated 02/19/16. More calm, comfortable today. O2 saturation 100% 1. Status post septic shock: Resolved. 2. Recurrent aspiration pneumonitis: Sputum cultures have been positive for Klebsiella, Pseudomonas. Repeat sputum culture growing gram-negative rods. 3. Leukocytosis: Patient remains afebrile. 4. Candiduria: Putnam catheter changed 01/26/16. Status post treatment with Diflucan. 5. Chronic respiratory failure: Tracheostomy. Appreciate pulmonology recommendations. Levsin as needed. Continue prednisone. DuoNeb's scheduled and as needed. Requiring BiPAP, sectioning. 6. Metabolic encephalopathy: Appreciate neurology recommendations. Continue treatment for Parkinson's disease. Weaned off antipsychotics. Continue to wean clonazepam. 7. Moderate protein calorie malnutrition: Peg tube placed. Evaluated by GI. Continue bowel regimen. Continue tube feeds. 8. Bilateral lower extremity contractures: Continue PT. 9. Stage II decubitus ulcer: Continue wound care. Turn every 2 hours. 10. DVT prophylaxis: Lovenox. Discharge Planning Awaiting placement. Case management assisting with discharge planning. Problem Qualifiers (1) Chronic respiratory failure: Qualified Code: J96.10 - Chronic respiratory failure, unspecified whether with hypoxia or hypercapnia German Bernal MD Feb 19, 2016 13:17
[2016-02-19] MEDS: ENOXAPARIN SODIUM 40 MG/0.4 ML SYRINGE SQ SCH (23:03)
[2016-02-20] VITALS (7 sets, daily range): BP systolic 89–133; BP diastolic 50–83; PULSE 96–103; RESP 24–38; TEMP 95.9–101; O2SAT 93–99
[2016-02-20] MEDS: BETHANECHOL CHL 10 MG TAB PO SCH ×3 (06:00→23:34)
[2016-02-20] MEDS: INSULIN NovoLIN REGULAR SUPPLEMENTAL SCALE SQ SCH ×4 (06:00→23:44)
[2016-02-20] MEDS: FREE WATER G-TUBE SCH ×4 (06:00→23:34)
[2016-02-20] MEDS: LORazepam 2 MG/ML VIAL IVP PRN (06:10)
[2016-02-20] MEDS: MORPHINE SULFATE 4 MG/ML INJ IV PUSH PRN (07:19)
[2016-02-20] MEDS: POTASSIUM CL 40 MEQ/30 ML LIQ UDC GT SCH (08:42)
[2016-02-20] MEDS: clonazePAM 0.5 MG TAB PO SCH (08:44)
[2016-02-20] MEDS: PARoxetine HCL 20 MG TAB G-TUBE SCH (08:44)
[2016-02-20] MEDS: MIDODRINE 5 MG TAB G-TUBE SCH ×2 (08:44→20:22)
[2016-02-20] MEDS: predniSONE 5 MG TAB PO SCH (08:45)
[2016-02-20] MEDS: LANSOPRAZOLE SOLUTAB 30 MG TAB NG SCH (08:45)
[2016-02-20] MEDS: GABAPENTIN 300 MG CAP G-TUBE SCH ×2 (08:46→20:22)
[2016-02-20] MEDS: CARBIDOPA/LEVODOPA 25 MG/100 MG TAB GT SCH ×4 (08:46→20:22)
[2016-02-20] MEDS: CHLORHEXIDINE GLUCONATE 0.12% 30 ML CUP MT SCH ×2 (08:47→20:23)
[2016-02-20] MEDS: LACTOBACILLUS ACIDOPHILUS TAB PO SCH ×3 (08:47→18:24)
[2016-02-20] MEDS: ARTIFICIAL TEARS OPTH SOLN 15 ML BTL EACH EYE SCH ×3 (08:51→18:00)
[2016-02-20] MEDS: SODIUM CHLORIDE 0.9% FLUSH 5 ML FLUSH IVF SCH ×2 (09:00→20:23)
[2016-02-20] MEDS: COLLAGENASE OINT 30 GM TUBE TOP SCH (10:37)
--- NOTE | 2016-02-20 11:57 | HHI.PR ---
Subjective Remarks Follow up encephalopathy. Nursing reports watery diarrhea. No other events reported. Objective Vitals Vital Signs Date Time Temp Pulse Resp B/P Pulse Ox O2 Delivery O2 Flow Rate FiO2 02/20/16 08:00 99.2 97 32 109/50 96 02/20/16 04:35 98.6 103 24 89/61 97 02/20/16 00:00 99.3 99 24 133/65 99 02/19/16 23:50 97 40 02/19/16 20:00 97.3 86 22 88/63 97 02/19/16 19:40 100 50 02/19/16 15:48 96.7 82 20 105/72 100 02/19/16 12:02 96.1 70 22 97/55 100 I/O 02/19/16 02/19/16 02/19/16 02/20/16 02/20/16 02/20/16 07:00 15:00 23:00 07:00 15:00 23:00 Intake Total 700 ml Output Total 200 ml 550 ml 550 ml 100 ml Balance -200 ml 150 ml -550 ml -100 ml Tube Feeding 700 ml Output Urine Total 200 ml 550 ml 550 ml 100 ml # Bowel Movements 0 1 3 5 Result Diagram: 02/19/16 0547 02/19/16 0547 Imaging Last Impressions Chest X-Ray 02/16/16 0600 Signed Impressions: Service Date/Time: Tuesday, February 16, 2016 06:05 - CONCLUSION: No significant change. Erlin Escobar MD Tube Change 02/03/16 0000 Signed Impressions: Service Date/Time: Wednesday, February 03, 2016 17:13 - CONCLUSION: Uncomplicated gastrojejunostomy tube exchange as above. This is a recurrent occlusion with this tube. We will institute Q8 hour flushing of the tube with warm water. Tai Taylor Jr., MD Gastrostomy Tube Change 01/15/16 0000 Signed Impressions: Service Date/Time: Friday, January 15, 2016 12:28 - CONCLUSION: Successful GJ tube exchange as above. Scott Goode MD Abdomen X-Ray 01/12/16 1628 Signed Impressions: Service Date/Time: Tuesday, January 12, 2016 17:35 - CONCLUSION: No evidence of obstruction or free air. Reyes Jewell MD Abdomen Ultrasound 12/06/15 0000 Signed Impressions: Service Date/Time: Sunday, December 06, 2015 17:42 - CONCLUSION: 1. The gallbladder is unremarkable with no evidence of cholelithiasis. 2. Simple cyst in the left kidney. 3. Mild pyelocaliectasis in the right kidney. Salazar Thurman MD Upper Extremity Ultrasound 10/13/15 0000 Signed Impressions: Service Date/Time: Tuesday, October 13, 2015 09:51 - CONCLUSION: 1. No evidence of deep venous thrombosis. John Anderson MD Renal Ultrasound 10/07/15 0000 Signed Impressions: Service Date/Time: Wednesday, October 07, 2015 18:29 - CONCLUSION: 1. No acute findings. 3.6 cm left renal cyst. Putnam catheter in bladder. Amaury Ellsworth MD Tunnelled Chest Tube Removal 08/05/15 1100 Signed Impressions: Service Date/Time: Wednesday, August 05, 2015 11:00 - CONCLUSION: Uncomplicated chest tube removal. Blaine Jackson MD Chest Tube Change 07/31/15 0000 Signed Impressions: Service Date/Time: Friday, July 31, 2015 14:34 - CONCLUSION: Uncomplicated reposition of previously placed chest tube as above. Blaine Jackson MD Chest Tube Insertion 07/30/15 0000 Signed Impressions: Service Date/Time: July 14:50 - CONCLUSION: Uncomplicated chest tube placement as above. Blaine Jackson MD Catheter Change 07/27/15 0000 Signed Impressions: Service Date/Time: Monday, July 27, 2015 14:43 - CONCLUSION: Uncomplicated gastrostomy tube exchange as above. Blaine Jackson MD Chest CT 07/11/15 0000 Signed Impressions: Service Date/Time: Saturday, July 11, 2015 09:49 - CONCLUSION: Scattered patchy densities significantly improved from previous study. Tiny anterior right basilar pneumothorax. Right-sided chest tube in good position. Néstor Matamoros MD Head CT 06/18/151902 Signed Impressions: Service Date/Time: June 19:31 - CONCLUSION: Diffuse atrophy unchanged. No acute intracranial findings. Kush Briscoe MD Abdomen/Pelvis CT 06/18/151902 Signed Impressions: Service Date/Time: June 19:36 - CONCLUSION: 1. Chronic nonspecific urinary bladder wall thickening. Bladder collapsed with Putnam catheter in place. 2. Chronic bilateral mid to lower lung zone groundglass opacity. 3. Nonobstructing left renal calculus. 4. Distended rectum. Kush Briscoe MD Objective Remarks General: Thin male in no acute distress. Heart: Regular rate and rhythm. No murmur. Lungs: Coarse breath sounds bilaterally. Breathing is nonlabored. Tracheostomy. Abdomen: Soft, nontender, nondistended. Extremities: No lower extremity edema. SCDs. Contractures of upper extremities. Psych: Nonverbal. Neuro: Does not follow commands. Does not track. Procedures 07/26- PEG replacement 07/29- right pigtail catheter placement for new pneumothorax Urinary Catheter: Yes Assessment to: Continue Putnam insert reason: Prolonged Immobilization Vascular Central Line Catheter: No A/P Problem List: (1) Sepsis due to urinary tract infection ICD Code: A41.9 Status: Resolved (2) Acute respiratory failure ICD Code: J96.00 Status: Acute (3) Chronic respiratory failure ICD Code: J96.10 Status: Chronic (4) Parkinson disease ICD Code: G20 Status: Chronic (5) UTI (urinary tract infection) ICD Code: N39.0 Status: Acute (6) Encephalopathy ICD Code: G93.40 Status: Resolved Assessment and Plan Reviewed/updated 02/20/16. Diarrhea is worsening. Check c. diff. 1. Status post septic shock: Resolved. 2. Recurrent aspiration pneumonitis: Sputum cultures have been positive for Klebsiella, Pseudomonas. Repeat sputum culture growing gram-negative rods. 3. Leukocytosis: Patient remains afebrile. 4. Candiduria: Putnam catheter changed 01/26/16. Status post treatment with Diflucan. 5. Chronic respiratory failure: Tracheostomy. Appreciate pulmonology recommendations. Levsin as needed. Continue prednisone. DuoNeb's scheduled and as needed. Requiring BiPAP, sectioning. 6. Metabolic encephalopathy: Appreciate neurology recommendations. Continue treatment for Parkinson's disease. Weaned off antipsychotics. Continue to wean clonazepam. 7. Moderate protein calorie malnutrition: Peg tube placed. Evaluated by GI. Continue bowel regimen. Continue tube feeds. 8. Bilateral lower extremity contractures: Continue PT. 9. Stage II decubitus ulcer: Continue wound care. Turn every 2 hours. 10. DVT prophylaxis: Lovenox. 11. C. difficile: Worsening diarrhea. Recheck stool for c. difficile. Discharge Planning Awaiting placement. Case management assisting with discharge planning. Problem Qualifiers (1) Chronic respiratory failure: Qualified Code: J96.10 - Chronic respiratory failure, unspecified whether with hypoxia or hypercapnia German Bernal MD Feb 20, 2016 11:57
[2016-02-20] MEDS: ACETAMINOPHEN/HYDROcodone 325 MG/5 MG TAB PO PRN (14:43)
[2016-02-20] MEDS: OLANZapine 2.5 MG TAB GT SCH (20:22)
[2016-02-20] MEDS: ENOXAPARIN SODIUM 40 MG/0.4 ML SYRINGE SQ SCH (23:34)
[2016-02-20] MEDS: ACETAMINOPHEN 650 MG/20.3 ML UDC TUBE PRN (23:36)
[2016-02-21] VITALS (10 sets, daily range): BP systolic 102–142; BP diastolic 53–89; PULSE 85–113; RESP 20–34; TEMP 97.6–99.3; O2SAT 90–98
[2016-02-21] MEDS: FREE WATER G-TUBE SCH ×4 (06:00→23:25)
[2016-02-21] MEDS: INSULIN NovoLIN REGULAR SUPPLEMENTAL SCALE SQ SCH ×4 (06:00→23:25)
[2016-02-21] MEDS: BETHANECHOL CHL 10 MG TAB PO SCH ×3 (06:50→23:22)
[2016-02-21] MEDS: SODIUM CHLORIDE 0.9% FLUSH 5 ML FLUSH IVF SCH ×2 (09:00→23:23)
[2016-02-21] MEDS: POTASSIUM CL 40 MEQ/30 ML LIQ UDC GT SCH (09:22)
[2016-02-21] MEDS: CARBIDOPA/LEVODOPA 25 MG/100 MG TAB GT SCH ×4 (09:23→23:23)
[2016-02-21] MEDS: PARoxetine HCL 20 MG TAB G-TUBE SCH (09:24)
[2016-02-21] MEDS: GABAPENTIN 300 MG CAP G-TUBE SCH ×2 (09:24→23:23)
[2016-02-21] MEDS: LANSOPRAZOLE SOLUTAB 30 MG TAB NG SCH (09:24)
[2016-02-21] MEDS: LACTOBACILLUS ACIDOPHILUS TAB PO SCH ×3 (09:25→19:39)
[2016-02-21] MEDS: MIDODRINE 5 MG TAB G-TUBE SCH ×2 (09:25→23:21)
[2016-02-21] MEDS: predniSONE 5 MG TAB PO SCH (09:25)
[2016-02-21] MEDS: CHLORHEXIDINE GLUCONATE 0.12% 30 ML CUP MT SCH ×3 (09:30→23:53)
[2016-02-21] MEDS: ARTIFICIAL TEARS OPTH SOLN 15 ML BTL EACH EYE SCH ×3 (09:30→19:39)
[2016-02-21] MEDS: COLLAGENASE OINT 30 GM TUBE TOP SCH (10:37)
--- NOTE | 2016-02-21 13:06 | HHI.PR ---
Subjective Remarks Follow up encephalopathy. Patient had fever overnight, MAXIMUM TEMPERATURE 101. No other events reported by nursing. Now afebrile. Objective Vitals Vital Signs Date Time Temp Pulse Resp B/P Pulse Ox O2 Delivery O2 Flow Rate FiO2 02/21/16 08:30 94 T-piece 6.00 28 02/21/16 08:09 97.6 85 34 105/62 98 02/21/16 05:45 98 BiPAP 02/21/16 05:45 98 40 02/21/16 04:00 98.0 88 20 138/89 94 02/21/16 01:00 99.0 113 22 110/53 90 02/21/16 00:30 98 40 02/21/16 00:00 99.0 113 22 113/53 90 02/20/16 20:37 50 02/20/16 20:00 101.0 96 24 117/68 96 02/20/16 16:00 95.9 100 32 126/69 96 I/O 02/20/16 02/20/16 02/20/16 02/21/16 02/21/16 02/21/16 07:00 15:00 23:00 07:00 15:00 23:00 Output Total 100 ml 250 ml 3500 ml Balance -100 ml -250 ml -3500 ml Output Urine Total 100 ml 250 ml 3500 ml # Bowel Movements 5 4 1 Result Diagram: 02/19/16 0547 02/19/16 0547 Imaging Last Impressions Chest X-Ray 02/16/16 0600 Signed Impressions: Service Date/Time: Tuesday, February 16, 2016 06:05 - CONCLUSION: No significant change. Erlin Escobar MD Tube Change 02/03/16 0000 Signed Impressions: Service Date/Time: Wednesday, February 03, 2016 17:13 - CONCLUSION: Uncomplicated gastrojejunostomy tube exchange as above. This is a recurrent occlusion with this tube. We will institute Q8 hour flushing of the tube with warm water. Tai Taylor Jr., MD Gastrostomy Tube Change 01/15/16 0000 Signed Impressions: Service Date/Time: Friday, January 15, 2016 12:28 - CONCLUSION: Successful GJ tube exchange as above. Scott Goode MD Abdomen X-Ray 01/12/16 1628 Signed Impressions: Service Date/Time: Tuesday, January 12, 2016 17:35 - CONCLUSION: No evidence of obstruction or free air. Reyes Jewell MD Abdomen Ultrasound 12/06/15 0000 Signed Impressions: Service Date/Time: Sunday, December 06, 2015 17:42 - CONCLUSION: 1. The gallbladder is unremarkable with no evidence of cholelithiasis. 2. Simple cyst in the left kidney. 3. Mild pyelocaliectasis in the right kidney. Salazar Thurman MD Upper Extremity Ultrasound 10/13/15 0000 Signed Impressions: Service Date/Time: Tuesday, October 13, 2015 09:51 - CONCLUSION: 1. No evidence of deep venous thrombosis. John Anderson MD Renal Ultrasound 10/07/15 0000 Signed Impressions: Service Date/Time: Wednesday, October 07, 2015 18:29 - CONCLUSION: 1. No acute findings. 3.6 cm left renal cyst. Putnam catheter in bladder. Amaury Ellsworth MD Tunnelled Chest Tube Removal 08/05/15 1100 Signed Impressions: Service Date/Time: Wednesday, August 05, 2015 11:00 - CONCLUSION: Uncomplicated chest tube removal. Blaine Jackson MD Chest Tube Change 07/31/15 0000 Signed Impressions: Service Date/Time: Friday, July 31, 2015 14:34 - CONCLUSION: Uncomplicated reposition of previously placed chest tube as above. Blaine Jackson MD Chest Tube Insertion 07/30/15 0000 Signed Impressions: Service Date/Time: July 14:50 - CONCLUSION: Uncomplicated chest tube placement as above. Blaine Jackson MD Catheter Change 07/27/15 0000 Signed Impressions: Service Date/Time: Monday, July 27, 2015 14:43 - CONCLUSION: Uncomplicated gastrostomy tube exchange as above. Blaine Jackson MD Chest CT 07/11/15 0000 Signed Impressions: Service Date/Time: Saturday, July 11, 2015 09:49 - CONCLUSION: Scattered patchy densities significantly improved from previous study. Tiny anterior right basilar pneumothorax. Right-sided chest tube in good position. Néstor Matamoros MD Head CT 06/18/15 710 Signed Impressions: Service Date/Time: June 19:31 - CONCLUSION: Diffuse atrophy unchanged. No acute intracranial findings. Kush Briscoe MD Abdomen/Pelvis CT 06/18/15 4195 Signed Impressions: Service Date/Time: June 19:36 - CONCLUSION: 1. Chronic nonspecific urinary bladder wall thickening. Bladder collapsed with Putnam catheter in place. 2. Chronic bilateral mid to lower lung zone groundglass opacity. 3. Nonobstructing left renal calculus. 4. Distended rectum. Kush Briscoe MD Objective Remarks General: Thin male in no acute distress. Heart: Regular rate and rhythm. No murmur. Lungs: Coarse breath sounds bilaterally. Breathing is nonlabored. Tracheostomy. Abdomen: Soft, nontender, nondistended. Extremities: No lower extremity edema. SCDs. Contractures of upper extremities. Psych: Nonverbal. Neuro: Does not follow commands. Does not track. Procedures 07/26- PEG replacement 07/29- right pigtail catheter placement for new pneumothorax Urinary Catheter: Yes Assessment to: Continue Putnam insert reason: Prolonged Immobilization Vascular Central Line Catheter: No A/P Problem List: (1) Sepsis due to urinary tract infection ICD Code: A41.9 Status: Resolved (2) Acute respiratory failure ICD Code: J96.00 Status: Acute (3) Chronic respiratory failure ICD Code: J96.10 Status: Chronic (4) Parkinson disease ICD Code: G20 Status: Chronic (5) UTI (urinary tract infection) ICD Code: N39.0 Status: Acute (6) Encephalopathy ICD Code: G93.40 Status: Resolved Assessment and Plan Reviewed/updated 02/21/16. Continues to have diarrhea. C. diff pending. Patient was febrile overnight. Check UA. 1. Status post septic shock: Resolved. 2. Recurrent aspiration pneumonitis: Sputum cultures have been positive for Klebsiella, Pseudomonas. 3. Leukocytosis: Patient remains afebrile. 4. Candiduria: Putnam catheter changed 01/26/16. Status post treatment with Diflucan. 5. Chronic respiratory failure: Tracheostomy. Appreciate pulmonology recommendations. Levsin as needed. Continue prednisone. DuoNeb's scheduled and as needed. Requiring BiPAP, sectioning. 6. Metabolic encephalopathy: Appreciate neurology recommendations. Continue treatment for Parkinson's disease. Weaned off antipsychotics. Continue to wean clonazepam. 7. Moderate protein calorie malnutrition: Peg tube placed. Evaluated by GI. Continue bowel regimen. Continue tube feeds. 8. Bilateral lower extremity contractures: Continue PT. 9. Stage II decubitus ulcer: Continue wound care. Turn every 2 hours. 10. DVT prophylaxis: Lovenox. 11. C. difficile: Worsening diarrhea. Recheck stool for c. difficile. Discharge Planning Awaiting placement. Case management assisting with discharge planning. Problem Qualifiers (1) Chronic respiratory failure: Qualified Code: J96.10 - Chronic respiratory failure, unspecified whether with hypoxia or hypercapnia German Bernal MD Feb 21, 2016 13:06
[2016-02-21 13:17] LABS: BACTERIA, URINE MOD /hpf; BLOOD, URINE MOD (NEG); CALCIUM OXALATE CRYSTALS,URINE FEW /hpf; GLUCOSE,URINE NEG (NEG); KETONE, URINE NEG (NEG); MUCUS URINE MANY /lpf (OCC); NITRITE,URINE NEG (NEG); SQUAMOUS EPITHELIAL CELL URINE 2 /hpf (0-5); URINE COLOR YELLOW (YELLW/STRAW)
[2016-02-21 13:20] LABS: COMMENT (UR) CATH-CULTURE IND; CULTURE IF INDICATED CATH CULTURE IND
[2016-02-21] MEDS: ENOXAPARIN SODIUM 40 MG/0.4 ML SYRINGE SQ SCH (23:25)
[2016-02-21] MEDS: ACETAMINOPHEN/HYDROcodone 325 MG/5 MG TAB PO PRN (23:50)
[2016-02-22] VITALS (10 sets, daily range): BP systolic 85–98; BP diastolic 54–81; PULSE 64–97; RESP 20–26; TEMP 96.9–99.7; O2SAT 94–100
[2016-02-22] MEDS: FREE WATER G-TUBE SCH ×4 (06:00→23:05)
[2016-02-22] MEDS: INSULIN NovoLIN REGULAR SUPPLEMENTAL SCALE SQ SCH ×4 (06:00→23:05)
[2016-02-22] MEDS: BETHANECHOL CHL 10 MG TAB PO SCH ×3 (06:39→22:00)
[2016-02-22] MEDS: COLLAGENASE OINT 30 GM TUBE TOP SCH (09:00)
[2016-02-22] MEDS: predniSONE 5 MG TAB PO SCH (09:00)
[2016-02-22] MEDS: MIDODRINE 5 MG TAB G-TUBE SCH ×2 (09:00→22:18)
[2016-02-22] MEDS: clonazePAM 0.5 MG TAB PO SCH (09:00)
[2016-02-22] MEDS: SODIUM CHLORIDE 0.9% FLUSH 5 ML FLUSH IVF SCH ×2 (09:00→21:00)
[2016-02-22] MEDS: POTASSIUM CL 40 MEQ/30 ML LIQ UDC GT SCH (09:00)
[2016-02-22] MEDS: CHLORHEXIDINE GLUCONATE 0.12% 30 ML CUP MT SCH ×2 (10:48→22:19)
[2016-02-22] MEDS: ARTIFICIAL TEARS OPTH SOLN 15 ML BTL EACH EYE SCH ×3 (10:48→18:00)
[2016-02-22] MEDS: PARoxetine HCL 20 MG TAB G-TUBE SCH (10:49)
[2016-02-22] MEDS: GABAPENTIN 300 MG CAP G-TUBE SCH ×2 (10:49→22:17)
[2016-02-22] MEDS: LANSOPRAZOLE SOLUTAB 30 MG TAB NG SCH (10:49)
[2016-02-22] MEDS: LACTOBACILLUS ACIDOPHILUS TAB PO SCH ×3 (10:49→18:47)
[2016-02-22] MEDS: CARBIDOPA/LEVODOPA 25 MG/100 MG TAB GT SCH ×4 (10:51→22:18)
--- NOTE | 2016-02-22 12:15 | HHI.PR ---
Subjective Remarks Follow-up encephalopathy. Patient appears comfortable today. No events reported overnight. Objective Vitals Vital Signs Date Time Temp Pulse Resp B/P Pulse Ox O2 Delivery O2 Flow Rate FiO2 02/22/16 09:44 97 Trach Collar 6.00 28 02/22/16 08:00 98.1 66 20 86/54 99 02/22/16 04:35 100 40 02/22/16 04:00 97.7 77 22 98/69 100 02/22/16 00:00 99.7 97 24 94/59 100 02/22/16 00:00 96 40 02/22/16 00:00 96 BiPAP 40 02/21/16 20:00 T-Piece 6.00 22 02/21/16 20:00 99.3 94 24 142/68 94 02/21/16 16:00 98.1 86 24 106/59 98 I/O 02/21/16 02/21/16 02/21/16 02/22/16 02/22/16 02/22/16 07:00 15:00 23:00 07:00 15:00 23:00 Intake Total 100 ml Output Total 3500 ml 550 ml Balance -3500 ml -550 ml 100 ml Intake Oral 100 ml Output Urine Total 3500 ml 550 ml # Bowel Movements 1 0 Result Diagram: 02/19/16 0547 02/19/16 0547 Imaging Last Impressions Chest X-Ray 02/16/16 0600 Signed Impressions: Service Date/Time: Tuesday, February 16, 2016 06:05 - CONCLUSION: No significant change. Erlin Escobar MD Tube Change 02/03/16 0000 Signed Impressions: Service Date/Time: Wednesday, February 03, 2016 17:13 - CONCLUSION: Uncomplicated gastrojejunostomy tube exchange as above. This is a recurrent occlusion with this tube. We will institute Q8 hour flushing of the tube with warm water. Tai Taylor Jr., MD Gastrostomy Tube Change 01/15/16 0000 Signed Impressions: Service Date/Time: Friday, January 15, 2016 12:28 - CONCLUSION: Successful GJ tube exchange as above. Scott Goode MD Abdomen X-Ray 01/12/16 1628 Signed Impressions: Service Date/Time: Tuesday, January 12, 2016 17:35 - CONCLUSION: No evidence of obstruction or free air. Reyes Jewell MD Abdomen Ultrasound 12/06/15 0000 Signed Impressions: Service Date/Time: Sunday, December 06, 2015 17:42 - CONCLUSION: 1. The gallbladder is unremarkable with no evidence of cholelithiasis. 2. Simple cyst in the left kidney. 3. Mild pyelocaliectasis in the right kidney. Salazar Thurman MD Upper Extremity Ultrasound 10/13/15 0000 Signed Impressions: Service Date/Time: Tuesday, October 13, 2015 09:51 - CONCLUSION: 1. No evidence of deep venous thrombosis. John Anderson MD Renal Ultrasound 10/07/15 0000 Signed Impressions: Service Date/Time: Wednesday, October 07, 2015 18:29 - CONCLUSION: 1. No acute findings. 3.6 cm left renal cyst. Putnam catheter in bladder. Amaury Ellsworth MD Tunnelled Chest Tube Removal 08/05/15 1100 Signed Impressions: Service Date/Time: Wednesday, August 05, 2015 11:00 - CONCLUSION: Uncomplicated chest tube removal. Blaine Jackson MD Chest Tube Change 07/31/15 0000 Signed Impressions: Service Date/Time: Friday, July 31, 2015 14:34 - CONCLUSION: Uncomplicated reposition of previously placed chest tube as above. Blaine Jackson MD Chest Tube Insertion 07/30/15 0000 Signed Impressions: Service Date/Time: July 14:50 - CONCLUSION: Uncomplicated chest tube placement as above. Blaine Jackson MD Catheter Change 07/27/15 0000 Signed Impressions: Service Date/Time: Monday, July 27, 2015 14:43 - CONCLUSION: Uncomplicated gastrostomy tube exchange as above. Blaine Jackson MD Chest CT 07/11/15 0000 Signed Impressions: Service Date/Time: Saturday, July 11, 2015 09:49 - CONCLUSION: Scattered patchy densities significantly improved from previous study. Tiny anterior right basilar pneumothorax. Right-sided chest tube in good position. Néstor Matamoros MD Head CT 06/18/151902 Signed Impressions: Service Date/Time: June 19:31 - CONCLUSION: Diffuse atrophy unchanged. No acute intracranial findings. Kush Briscoe MD Abdomen/Pelvis CT 06/18/151902 Signed Impressions: Service Date/Time: June 19:36 - CONCLUSION: 1. Chronic nonspecific urinary bladder wall thickening. Bladder collapsed with Putnam catheter in place. 2. Chronic bilateral mid to lower lung zone groundglass opacity. 3. Nonobstructing left renal calculus. 4. Distended rectum. Kush Briscoe MD Objective Remarks General: Thin male in no acute distress. Heart: Regular rate and rhythm. No murmur. Lungs: Coarse breath sounds bilaterally. Breathing is nonlabored. Tracheostomy. Abdomen: Soft, nontender, nondistended. Extremities: No lower extremity edema. SCDs. Contractures of upper extremities. Psych: Nonverbal. Neuro: Does not follow commands. Does not track. Procedures 07/26- PEG replacement 07/29- right pigtail catheter placement for new pneumothorax Urinary Catheter: Yes Assessment to: Continue Putnam insert reason: Prolonged Immobilization Vascular Central Line Catheter: No A/P Problem List: (1) Sepsis due to urinary tract infection ICD Code: A41.9 Status: Resolved (2) Acute respiratory failure ICD Code: J96.00 Status: Acute (3) Chronic respiratory failure ICD Code: J96.10 Status: Chronic (4) Parkinson disease ICD Code: G20 Status: Chronic (5) UTI (urinary tract infection) ICD Code: N39.0 Status: Acute (6) Encephalopathy ICD Code: G93.40 Status: Resolved Assessment and Plan Reviewed/updated 02/22/16. C. diff positive. Afebrile overnight. Urinalysis abnormal. Urine culture pending. 1. Status post septic shock: Resolved. 2. Recurrent aspiration pneumonitis: Sputum cultures have been positive for Klebsiella, Pseudomonas. 3. Leukocytosis: Patient remains afebrile. 4. Candiduria: Putnam catheter changed 01/26/16. Status post treatment with Diflucan. 5. Chronic respiratory failure: Tracheostomy. Appreciate pulmonology recommendations. Levsin as needed. Continue prednisone. DuoNeb's scheduled and as needed. Requiring BiPAP, sectioning. 6. Metabolic encephalopathy: Appreciate neurology recommendations. Continue treatment for Parkinson's disease. Weaned off antipsychotics. Continue to wean clonazepam. 7. Moderate protein calorie malnutrition: Peg tube placed. Evaluated by GI. Continue bowel regimen. Continue tube feeds. 8. Bilateral lower extremity contractures: Continue PT. 9. Stage II decubitus ulcer: Continue wound care. Turn every 2 hours. 10. DVT prophylaxis: Lovenox. 11. C. difficile: Worsening diarrhea. Recheck stool for c. difficile. Discharge Planning Awaiting placement. Case management assisting with discharge planning. Problem Qualifiers (1) Chronic respiratory failure: Qualified Code: J96.10 - Chronic respiratory failure, unspecified whether with hypoxia or hypercapnia German Bernal MD Feb 22, 2016 12:15
[2016-02-22] MEDS: OLANZapine 2.5 MG TAB GT SCH (22:17)
[2016-02-22] MEDS: ENOXAPARIN SODIUM 40 MG/0.4 ML SYRINGE SQ SCH (22:19)
[2016-02-23] VITALS (7 sets, daily range): BP systolic 88–103; BP diastolic 56–65; PULSE 63–89; RESP 16–22; TEMP 96.8–100.4; O2SAT 96–100
[2016-02-23] MEDS: ACETAMINOPHEN 650 MG/20.3 ML UDC TUBE PRN (02:55)
[2016-02-23] MEDS: FREE WATER G-TUBE SCH ×4 (06:00→22:24)
[2016-02-23] MEDS: INSULIN NovoLIN REGULAR SUPPLEMENTAL SCALE SQ SCH ×3 (06:00→18:00)
[2016-02-23] MEDS: BETHANECHOL CHL 10 MG TAB PO SCH ×3 (06:17→22:23)
[2016-02-23] MEDS: SODIUM CHLORIDE 0.9% FLUSH 5 ML FLUSH IVF SCH ×2 (09:00→21:00)
[2016-02-23] MEDS: COLLAGENASE OINT 30 GM TUBE TOP SCH (09:00)
[2016-02-23] MEDS: predniSONE 5 MG TAB PO SCH (09:00)
--- NOTE | 2016-02-23 10:13 | HHI.PR ---
Subjective Remarks Follow-up encephalopathy. Currently off BiPAP. No events reported by nursing. Objective Vitals Vital Signs Date Time Temp Pulse Resp B/P Pulse Ox O2 Delivery O2 Flow Rate FiO2 02/23/16 08:00 98.9 63 16 90/59 98 02/23/16 04:00 99.5 67 22 103/65 100 02/23/16 00:00 100.4 89 22 89/61 100 02/22/16 22:15 T-Piece 6.00 40 02/22/16 21:48 98 40 02/22/16 21:23 97.6 81 21 98/81 98 02/22/16 18:31 98 T-piece 6.00 28 02/22/16 16:00 97.4 64 26 87/61 98 02/22/16 12:00 96.9 64 22 85/67 94 I/O 02/22/16 02/22/16 02/22/16 02/23/16 02/23/16 02/23/16 07:00 15:00 23:00 07:00 15:00 23:00 Intake Total 100 ml Output Total 200 ml 100 ml Balance 100 ml -200 ml -100 ml Intake Oral 100 ml Output Urine Total 200 ml 100 ml # Bowel Movements 1 Result Diagram: 02/19/16 0547 02/19/16 0547 Imaging Last Impressions Chest X-Ray 02/16/16 0600 Signed Impressions: Service Date/Time: Tuesday, February 16, 2016 06:05 - CONCLUSION: No significant change. Erlin Escobar MD Tube Change 02/03/16 0000 Signed Impressions: Service Date/Time: Wednesday, February 03, 2016 17:13 - CONCLUSION: Uncomplicated gastrojejunostomy tube exchange as above. This is a recurrent occlusion with this tube. We will institute Q8 hour flushing of the tube with warm water. Tai Taylor Jr., MD Gastrostomy Tube Change 01/15/16 0000 Signed Impressions: Service Date/Time: Friday, January 15, 2016 12:28 - CONCLUSION: Successful GJ tube exchange as above. Scott Goode MD Abdomen X-Ray 01/12/16 1628 Signed Impressions: Service Date/Time: Tuesday, January 12, 2016 17:35 - CONCLUSION: No evidence of obstruction or free air. Reyes Jewell MD Abdomen Ultrasound 12/06/15 0000 Signed Impressions: Service Date/Time: Sunday, December 06, 2015 17:42 - CONCLUSION: 1. The gallbladder is unremarkable with no evidence of cholelithiasis. 2. Simple cyst in the left kidney. 3. Mild pyelocaliectasis in the right kidney. Salazar Thurman MD Upper Extremity Ultrasound 10/13/15 0000 Signed Impressions: Service Date/Time: Tuesday, October 13, 2015 09:51 - CONCLUSION: 1. No evidence of deep venous thrombosis. John Anderson MD Renal Ultrasound 10/07/15 0000 Signed Impressions: Service Date/Time: Wednesday, October 07, 2015 18:29 - CONCLUSION: 1. No acute findings. 3.6 cm left renal cyst. Putnam catheter in bladder. Amaury Ellsworth MD Tunnelled Chest Tube Removal 08/05/15 1100 Signed Impressions: Service Date/Time: Wednesday, August 05, 2015 11:00 - CONCLUSION: Uncomplicated chest tube removal. Blaine Jackson MD Chest Tube Change 07/31/15 0000 Signed Impressions: Service Date/Time: Friday, July 31, 2015 14:34 - CONCLUSION: Uncomplicated reposition of previously placed chest tube as above. Blaine Jackson MD Chest Tube Insertion 07/30/15 0000 Signed Impressions: Service Date/Time: July 14:50 - CONCLUSION: Uncomplicated chest tube placement as above. Blaine Jackson MD Catheter Change 07/27/15 0000 Signed Impressions: Service Date/Time: Monday, July 27, 2015 14:43 - CONCLUSION: Uncomplicated gastrostomy tube exchange as above. Blaine Jackson MD Chest CT 07/11/15 Signed Impressions: Service Date/Time: Saturday, July 11, 2015 09:49 - CONCLUSION: Scattered patchy densities significantly improved from previous study. Tiny anterior right basilar pneumothorax. Right-sided chest tube in good position. Néstor Matamoros MD Head CT 06/18/151902 Signed Impressions: Service Date/Time: June 19:31 - CONCLUSION: Diffuse atrophy unchanged. No acute intracranial findings. Kush Briscoe MD Abdomen/Pelvis CT 06/18/151902 Signed Impressions: Service Date/Time: June 19:36 - CONCLUSION: 1. Chronic nonspecific urinary bladder wall thickening. Bladder collapsed with Putnam catheter in place. 2. Chronic bilateral mid to lower lung zone groundglass opacity. 3. Nonobstructing left renal calculus. 4. Distended rectum. Kush Briscoe MD Objective Remarks General: Thin male in no acute distress. Heart: Regular rate and rhythm. No murmur. Lungs: Coarse breath sounds bilaterally. Breathing is nonlabored. Tracheostomy. Abdomen: Soft, nontender, nondistended. Extremities: No lower extremity edema. SCDs. Contractures of upper extremities. Psych: Nonverbal. Neuro: Does not follow commands. Does not track. Procedures 07/26- PEG replacement 07/29- right pigtail catheter placement for new pneumothorax Urinary Catheter: Yes Assessment to: Continue Putnam insert reason: Obstruction/Retention A/P Problem List: (1) Sepsis due to urinary tract infection ICD Code: A41.9 Status: Resolved (2) Acute respiratory failure ICD Code: J96.00 Status: Acute (3) Chronic respiratory failure ICD Code: J96.10 Status: Chronic (4) Parkinson disease ICD Code: G20 Status: Chronic (5) UTI (urinary tract infection) ICD Code: N39.0 Status: Acute (6) Encephalopathy ICD Code: G93.40 Status: Resolved Assessment and Plan Reviewed/updated 02/23/16. C. diff pending. Low-grade fever overnight, 100.4. Urinalysis abnormal. Urine culture growing yeast. 1. Status post septic shock: Resolved. 2. Recurrent aspiration pneumonitis: Sputum cultures have been positive for Klebsiella, Pseudomonas. 3. Leukocytosis: Patient remains afebrile. 4. Candiduria: Putnam catheter changed 01/26/16. Repeat UA with yeast. Patient intermittently febrile. Reconsult Infectious Disease. 5. Chronic respiratory failure: Tracheostomy. Appreciate pulmonology recommendations. Levsin as needed. Continue prednisone. DuoNeb's scheduled and as needed. Requiring BiPAP, sectioning. 6. Metabolic encephalopathy: Appreciate neurology recommendations. Continue treatment for Parkinson's disease. Weaned off antipsychotics. Continue to wean clonazepam. 7. Moderate protein calorie malnutrition: Peg tube placed. Evaluated by GI. Continue bowel regimen. Continue tube feeds. 8. Bilateral lower extremity contractures: Continue PT. 9. Stage II decubitus ulcer: Continue wound care. Turn every 2 hours. 10. DVT prophylaxis: Lovenox. 11. C. difficile: Repeat C. Difficile testing pending. Not currently on antibiotics. Diarrhea improving. Discharge Planning Awaiting placement. Case management assisting with discharge planning. Problem Qualifiers (1) Chronic respiratory failure: Qualified Code: J96.10 - Chronic respiratory failure, unspecified whether with hypoxia or hypercapnia German Bernal MD Feb 23, 2016 10:13
[2016-02-23] MEDS: CHLORHEXIDINE GLUCONATE 0.12% 30 ML CUP MT SCH ×2 (10:29→22:24)
[2016-02-23] MEDS: POTASSIUM CL 40 MEQ/30 ML LIQ UDC GT SCH (10:30)
[2016-02-23] MEDS: MIDODRINE 5 MG TAB G-TUBE SCH ×2 (10:31→22:23)
[2016-02-23] MEDS: GABAPENTIN 300 MG CAP G-TUBE SCH ×2 (10:31→22:23)
[2016-02-23] MEDS: PARoxetine HCL 20 MG TAB G-TUBE SCH (10:31)
[2016-02-23] MEDS: LANSOPRAZOLE SOLUTAB 30 MG TAB NG SCH (10:32)
[2016-02-23] MEDS: LACTOBACILLUS ACIDOPHILUS TAB PO SCH ×3 (10:32→18:52)
[2016-02-23] MEDS: CARBIDOPA/LEVODOPA 25 MG/100 MG TAB GT SCH ×4 (10:33→22:24)
[2016-02-23] MEDS: ARTIFICIAL TEARS OPTH SOLN 15 ML BTL EACH EYE SCH ×3 (10:34→18:00)
[2016-02-23] MEDS: FLUCONAZOLE 200 MG PREMIX BAG 100 ML IV SCH ×2 (11:00→22:22)
--- NOTE | 2016-02-23 13:18 | HHI.PR ---
Subjective Remarks Awake , and 0n a T bar FIO2 30 % .On Bipap at HS. On tube feeds at 40 CC .O2 Sat 97. No change overall. Objective Vital Signs Date Time Temp Pulse Resp B/P Pulse Ox O2 Delivery O2 Flow Rate FiO2 02/23/16 12:00 96.8 66 18 99/58 98 02/23/16 10:21 99 T-piece 40 02/23/16 08:00 98.9 63 16 90/59 98 02/23/16 04:00 99.5 67 22 103/65 100 02/23/16 00:00 100.4 89 22 89/61 100 02/22/16 22:15 T-Piece 6.00 40 02/22/16 21:48 98 40 02/22/16 21:23 97.6 81 21 98/81 98 02/22/16 18:31 98 T-piece 6.00 28 02/22/16 16:00 97.4 64 26 87/61 98 I/O 02/22/16 02/22/16 02/22/16 02/23/16 02/23/16 02/23/16 07:00 15:00 23:00 07:00 15:00 23:00 Intake Total 100 ml Output Total 200 ml 100 ml Balance 100 ml -200 ml -100 ml Intake Oral 100 ml Output Urine Total 200 ml 100 ml # Bowel Movements 1 Result Diagram: 02/19/16 0547 02/19/1647 Objective Remarks This is a thin white male who is , awake with a trach tube in place. HEENT: Pupils are equal and reactive to light. CHEST:Decreased breath sounds,with Occ wheezes + and basal crackles CARDIOVASCULAR: S1 and S2 is normal.No murmur. ABDOMEN: Soft, nondistended. BS +. He has a PEG tube in place. EXTREMITIES: Contractures.muscle wasting. NEURO: Awake and has weak extremities.Trying to verbalize. Skin is warm. Assessment and Plan Assessment and Plan IMPRESSION 1. Chronic Respiratory failure. 2. Sepsis, Aspiration. 3. Left basal Pneumonia, Resolved 4. Tracheobronchitis 5. Parkinson's disease 6. Dementia. 7. Severe Deconditioning. Plan : 1. Continue on Bipap 06/20, FIo2 35 % at 10 pm to 7 am. 2. Nebs Bid , duoneb. 3. Cont tube feeds Jevity at 45 CC 4. T Bar 40 % daytime. 5. Chest X ray in am 6. Cont Trach toilet and lavage. 7. Postural drainage tid 1 Darren Kiser MD Feb 23, 2016 13:18
--- NOTE | 2016-02-23 15:51 | RADRPT ---
EXAM DATE/TIME: 02/23/2016 14:25 [facility] COMPARISON: CHEST SINGLE AP, February 16, 2016, 6:05. INDICATIONS : Evaluate lung status. Infiltrate per order. MEDICAL HISTORY : Hypertension. Gastroesophageal reflux disease. Diabetes mellitus type II. SURGICAL HISTORY : Tracheostomy ENCOUNTER: Subsequent ACUITY: 4 - 6 days PAIN SCORE: Non-responsive. LOCATION: Bilateral chest FINDINGS: Chronic interstitial lung changes are noted. There is no evidence of acute airspace disease. Tracheostomy tube is in stable position. Heart and mediastinal structures are stable. CONCLUSION: No acute disease. Cecil Galarza MD on February 23, 2016 at 15:49 Board Certified Radiologist. This report was verified electronically.
--- NOTE | 2016-02-23 18:20 | HHI.IDPN ---
Note Infectious Disease Note ID Coverage. Patient known to Dr. Jose Moss. Notes reviewed Developed Temp. Cultures taken. Positive urine culture. Heena. Antibiotics Fluconazole. Past Medical History reviewed Allergies: Coded Allergies: *MDRO Multi-Drug Resistant Organism (Verified Adverse Reaction, Unknown, ESBL, carbapenem resistant Pseudomonas, 01/13/16) ESBL E. coli (urine) - 02/19/2015; ESBL K. pneumoniae (sputum-06/18/15, 08/03/15, 09/20/15,10/12/15, 11/27/15, 12/26/15, 01/09/16), (urine-08/03/15 & 11/27/15), MRSA PCR POSITIVE - 03/20/2015 MDR-Pseudomonas (sputum)- 08/18/15, 09/20/15, 10/2015 (Carbapenem resistant) Objective . Vital Signs Date Time Temp Pulse Resp B/P Pulse Ox O2 Delivery O2 Flow Rate FiO2 02/23/16 16:00 99.0 70 19 88/56 96 02/23/16 12:00 96.8 66 18 99/58 98 02/23/16 10:21 99 T-piece 40 02/23/16 08:00 98.9 63 16 90/59 98 02/23/16 04:00 99.5 67 22 103/65 100 02/23/16 00:00 100.4 89 22 89/61 100 02/22/16 22:15 T-Piece 6.00 40 02/22/16 21:48 98 40 02/22/16 21:23 97.6 81 21 98/81 98 02/22/16 18:31 98 T-piece 6.00 28 02/22/16 02/22/16 02/23/16 15:00 23:00 07:00 Output Total 200 ml 100 ml Balance -200 ml -100 ml Output Urine Total 200 ml 100 ml # Bowel Movements 1 Microbiology Date/Time Procedure Status Source Growth 02/21/16 12:56 Urine Culture - Final Complete Urine Clean Catch Heena Tropicalis Imaging Chest X-Ray 02/23/16 0000 Signed Impressions: Service Date/Time: Tuesday, February 23, 2016 14:25 - CONCLUSION: No acute disease. Cecil Galarza MD Abdomen X-Ray 12/07/15 0600 Signed Impressions: Service Date/Time: Monday, December 07, 2015 03:40 - CONCLUSION: No dilated loops of small or large bowel. Tai Jaquez MD Chest X-Ray 12/07/15 0000 Signed Impressions: Service Date/Time: Monday, December 07, 2015 03:34 - CONCLUSION: Right lung is clear. Slight improvement of interstitial infiltrates left mid and lower lung. Tai Jaquez MD Abdomen X-Ray 12/06/15 0000 Signed Impressions: Service Date/Time: Sunday, December 06, 2015 08:05 - CONCLUSION: No acute disease. Erlin Barajas MD Abdomen Ultrasound 12/06/15 0000 Signed Impressions: Service Date/Time: Sunday, December 06, 2015 17:42 - CONCLUSION: 1. The gallbladder is unremarkable with no evidence of cholelithiasis. 2. Simple cyst in the left kidney. 3. Mild pyelocaliectasis in the right kidney. Salazar Thurman MD Chest X-Ray 12/04/15 0600 Signed Impressions: Service Date/Time: Friday, December 04, 2015 03:50 - CONCLUSION: Interstitial densities in the right lung. Néstor Matamoros MD Chest X-Ray 11/28/15 0000 Signed Impressions: Service Date/Time: Saturday, November 28, 2015 00:21 - CONCLUSION: No acute cardiopulmonary disease. Eugene Schmid MD Abdomen X-Ray 11/26/15 0000 Signed Impressions: Service Date/Time: November 12:34 - CONCLUSION: 1. Nonobstructive bowel gas pattern. 2. Stable position of gastrostomy tube. Multiple surgical screws secure the proximal left femur. 3. No obvious pneumoperitoneum on the single projection provided. Scott Goode MD Upper Extremity Ultrasound 10/13/15 0000 Signed Impressions: Service Date/Time: Tuesday, October 13, 2015 09:51 - CONCLUSION: 1. No evidence of deep venous thrombosis. John Anderson MD Renal Ultrasound 10/07/15 0000 Signed Impressions: Service Date/Time: Wednesday, October 07, 2015 18:29 - CONCLUSION: 1. No acute findings. 3.6 cm left renal cyst. Valdez catheter in bladder. Amaury Ellsworth MD Tunnelled Chest Tube Removal 08/05/15 1100 Signed Impressions: Service Date/Time: Wednesday, August 05, 2015 11:00 - CONCLUSION: Uncomplicated chest tube removal. Blaine Jackson MD Chest Tube Change 07/31/15 0000 Signed Impressions: Service Date/Time: Friday, July 31, 2015 14:34 - CONCLUSION: Uncomplicated reposition of previously placed chest tube as above. Blaine Jackson MD Chest Tube Insertion 07/30/15 0000 Signed Impressions: Service Date/Time: July 14:50 - CONCLUSION: Uncomplicated chest tube placement as above. Blaine Jackson MD Catheter Change 07/27/15 0000 Signed Impressions: Service Date/Time: Monday, July 27, 2015 14:43 - CONCLUSION: Uncomplicated gastrostomy tube exchange as above. Blaine Jackson MD Chest CT 07/11/15 Signed Impressions: Service Date/Time: Saturday, July 11, 2015 09:49 - CONCLUSION: Scattered patchy densities significantly improved from previous study. Tiny anterior right basilar pneumothorax. Right-sided chest tube in good position. Néstor Matamoros MD Head CT 06/18/151902 Signed Impressions: Service Date/Time: June 19:31 - CONCLUSION: Diffuse atrophy unchanged. No acute intracranial findings. Kush Briscoe MD Abdomen/Pelvis CT 06/18/151902 Signed Impressions: Service Date/Time: June 19:36 - CONCLUSION: 1. Chronic nonspecific urinary bladder wall thickening. Bladder collapsed with Valdez catheter in place. 2. Chronic bilateral mid to lower lung zone groundglass opacity. 3. Nonobstructing left renal calculus. 4. Distended rectum. Kush Briscoe MD Physical Exam GENERAL: No interaction, looks comfortable. SKIN: Cool and moist. No generalized rash. HEENT: Dyer conjunctivae, no icterus, moist mucosa. NECK: Trach site looks ok. Neck is supple RESPIRATORY: Coarse BS bilateral. GASTROINTESTINAL: Abdomen soft, not distended. No guarding. PEG site looks okay. MUSCULOSKELETAL: No cyanosis No pedal edema. Contracted all 4 extremities. NEUROLOGICAL: Eyes open, Extremities contracted Peripheral IV line sites with no evidence of infection. ; Avldez in place copious sediment Assessment & Plan IMPRESSION Prior Respiratory distress Prior Sepsis/SIRS related to aspiration PNA?HCAP. Preceding events seem to be vomiting, ?aspiration, CXR now with some densities on R - C/S with PSAE and Kleb ESBL+ - S/P Rx History of PSAE ESBL cath associated UTI. S/P Rx Fever, New recurrent. Previous C diff (+), no treated, improved - has had freq BM reported - will repeat if persistent and liquid Chronic respiratory failure on trach PSAE and ESBL Kleb in sputum in recent past. Chronic encephalopathy with underlying diagnosis of advanced dementia as well as advanced Parkinson's disease. Status post trach Status post gastrostomy tube with no evidence of infection. Stage II sacral decubitus ulcer present on admission. Heena UTI. Recommendations Continue Fluconazole. Change valdez catheter. Dr. Moss will assume following patient. Orlando Coto MD Feb 23, 2016 18:20
[2016-02-23] MEDS: ACETAMINOPHEN/HYDROcodone 325 MG/5 MG TAB PO PRN (22:23)
[2016-02-23] MEDS: ENOXAPARIN SODIUM 40 MG/0.4 ML SYRINGE SQ SCH (22:24)
[2016-02-24] VITALS (9 sets, daily range): BP systolic 98–118; BP diastolic 42–76; PULSE 59–86; RESP 18–22; TEMP 95.6–98.1; O2SAT 93–100
[2016-02-24] MEDS: BETHANECHOL CHL 10 MG TAB PO SCH ×3 (05:51→23:08)
[2016-02-24] MEDS: INSULIN NovoLIN REGULAR SUPPLEMENTAL SCALE SQ SCH ×5 (05:51→23:35)
[2016-02-24] MEDS: FREE WATER G-TUBE SCH ×4 (05:51→23:09)
[2016-02-24] MEDS: COLLAGENASE OINT 30 GM TUBE TOP SCH (09:00)
[2016-02-24] MEDS: SODIUM CHLORIDE 0.9% FLUSH 5 ML FLUSH IVF SCH ×2 (09:00→21:00)
[2016-02-24] MEDS: ARTIFICIAL TEARS OPTH SOLN 15 ML BTL EACH EYE SCH ×3 (09:00→17:02)
[2016-02-24] MEDS: POTASSIUM CL 40 MEQ/30 ML LIQ UDC GT SCH (09:37)
[2016-02-24] MEDS: CARBIDOPA/LEVODOPA 25 MG/100 MG TAB GT SCH ×4 (09:37→23:08)
[2016-02-24] MEDS: clonazePAM 0.5 MG TAB PO SCH (09:38)
[2016-02-24] MEDS: predniSONE 5 MG TAB PO SCH (09:38)
[2016-02-24] MEDS: LANSOPRAZOLE SOLUTAB 30 MG TAB NG SCH (09:38)
[2016-02-24] MEDS: PARoxetine HCL 20 MG TAB G-TUBE SCH (09:38)
[2016-02-24] MEDS: CHLORHEXIDINE GLUCONATE 0.12% 30 ML CUP MT SCH ×2 (09:38→23:08)
[2016-02-24] MEDS: GABAPENTIN 300 MG CAP G-TUBE SCH ×2 (09:38→23:08)
[2016-02-24] MEDS: LACTOBACILLUS ACIDOPHILUS TAB PO SCH ×3 (09:38→17:17)
[2016-02-24] MEDS: MIDODRINE 5 MG TAB G-TUBE SCH ×2 (09:38→23:09)
[2016-02-24] MEDS: FLUCONAZOLE 200 MG PREMIX BAG 100 ML IV SCH (11:00)
--- NOTE | 2016-02-24 11:46 | HHI.PR ---
Subjective Remarks The pt was alert and trying to communicate. He was coughing up some secretions. No acute events reported. Objective Vitals Vital Signs Date Time Temp Pulse Resp B/P Pulse Ox O2 Delivery O2 Flow Rate FiO2 02/24/16 08:00 95.6 59 22 105/72 97 02/24/16 04:00 97.5 59 21 98/42 100 02/24/16 00:29 98.1 86 21 118/70 97 02/24/16 00:11 95 40 02/24/16 00:00 T-Piece 10.00 40 02/23/16 20:50 98.9 87 21 103/58 99 02/23/16 16:00 99.0 70 19 88/56 96 02/23/16 14:00 T-Piece 6.00 40 02/23/16 12:00 96.8 66 18 99/58 98 I/O 02/23/16 02/23/16 02/23/16 02/24/16 02/24/16 02/24/16 07:00 15:00 23:00 07:00 15:00 23:00 Output Total 100 ml 500 ml 600 ml 50 ml Balance -100 ml -500 ml -600 ml -50 ml Output Urine Total 100 ml 500 ml 600 ml 50 ml # Bowel Movements 0 Imaging Last Impressions Chest X-Ray 02/23/16 0000 Signed Impressions: Service Date/Time: Tuesday, February 23, 2016 14:25 - CONCLUSION: No acute disease. Cecil Galarza MD Tube Change 02/03/16 0000 Signed Impressions: Service Date/Time: Wednesday, February 03, 2016 17:13 - CONCLUSION: Uncomplicated gastrojejunostomy tube exchange as above. This is a recurrent occlusion with this tube. We will institute Q8 hour flushing of the tube with warm water. Tai Taylor Jr., MD Gastrostomy Tube Change 01/15/16 0000 Signed Impressions: Service Date/Time: Friday, January 15, 2016 12:28 - CONCLUSION: Successful GJ tube exchange as above. Scott Goode MD Abdomen X-Ray 01/12/16 3328 Signed Impressions: Service Date/Time: Tuesday, January 12, 2016 17:35 - CONCLUSION: No evidence of obstruction or free air. Reyes Jewell MD Abdomen Ultrasound 12/06/15 0000 Signed Impressions: Service Date/Time: Sunday, December 06, 2015 17:42 - CONCLUSION: 1. The gallbladder is unremarkable with no evidence of cholelithiasis. 2. Simple cyst in the left kidney. 3. Mild pyelocaliectasis in the right kidney. Salazar Thurman MD Upper Extremity Ultrasound 10/13/15 0000 Signed Impressions: Service Date/Time: Tuesday, October 13, 2015 09:51 - CONCLUSION: 1. No evidence of deep venous thrombosis. John Anderson MD Renal Ultrasound 10/07/15 0000 Signed Impressions: Service Date/Time: Wednesday, October 07, 2015 18:29 - CONCLUSION: 1. No acute findings. 3.6 cm left renal cyst. Valdez catheter in bladder. Amaury Ellsworth MD Tunnelled Chest Tube Removal 08/05/15 1100 Signed Impressions: Service Date/Time: Wednesday, August 05, 2015 11:00 - CONCLUSION: Uncomplicated chest tube removal. Blaine Jackson MD Chest Tube Change 07/31/15 0000 Signed Impressions: Service Date/Time: Friday, July 31, 2015 14:34 - CONCLUSION: Uncomplicated reposition of previously placed chest tube as above. Blaine Jackson MD Chest Tube Insertion 07/30/15 0000 Signed Impressions: Service Date/Time: July 14:50 - CONCLUSION: Uncomplicated chest tube placement as above. Blaine Jackson MD Catheter Change 07/27/15 0000 Signed Impressions: Service Date/Time: Monday, July 27, 2015 14:43 - CONCLUSION: Uncomplicated gastrostomy tube exchange as above. Blaine Jackson MD Chest CT 07/11/15 0000 Signed Impressions: Service Date/Time: Saturday, July 11, 2015 09:49 - CONCLUSION: Scattered patchy densities significantly improved from previous study. Tiny anterior right basilar pneumothorax. Right-sided chest tube in good position. Néstor Matamoros MD Head CT 06/18/151902 Signed Impressions: Service Date/Time: June 19:31 - CONCLUSION: Diffuse atrophy unchanged. No acute intracranial findings. Kush Briscoe MD Abdomen/Pelvis CT 06/18/151902 Signed Impressions: Service Date/Time: June 19:36 - CONCLUSION: 1. Chronic nonspecific urinary bladder wall thickening. Bladder collapsed with Valdez catheter in place. 2. Chronic bilateral mid to lower lung zone groundglass opacity. 3. Nonobstructing left renal calculus. 4. Distended rectum. Kush Briscoe MD Objective Remarks GENERAL: Cachectic patient with limbs contracted. Eyes open. SKIN: Warm and dry. HEAD: Normocephalic. EYES: No scleral icterus. No injection or drainage. NECK: 8.0 Distal XLT trach in place CARDIOVASCULAR: Regular rate and rhythm without murmurs, gallops, or rubs. RESPIRATORY: coarse breath sounds. GASTROINTESTINAL: Abdomen soft, non-tender, nondistended. MUSCULOSKELETAL: Contracted limbs. Wound on lower back currently bandaged. Procedures 07/26- PEG replacement 07/29- right pigtail catheter placement for new pneumothorax Medications and IVs Current Medications Medications (Trade) Dose Ordered Sig/Jassi Route Start Time Stop Time Status Last Admin (NS Flush) 2 ml UNSCH PRN IVF 06/18/15 21:30 02/01/16 03:04 (NS Flush) 2 ml BID IVF 06/19/15 09:00 02/23/16 21:00 (Tylenol 650 Mg/ 20 ml Liq) 650 mg Q6H PRN TUBE 06/18/15 21:30 02/23/16 02:55 (Tears Naturale Opth Soln) 1 drop TID EACH EYE 06/19/15 09:00 02/23/16 18:00 (Zofran Inj) 4 mg Q6H PRN IV 06/18/15 21:30 11/26/15 11:54 (Neurontin) 300 mg BID G-TUBE 06/19/15 09:00 02/24/16 09:38 (Lactinex) 1 tab TID PO 06/19/15 09:00 02/24/16 09:38 (Paxil) 20 mg DAILY G-TUBE 06/19/15 09:00 02/24/16 09:38 (Pill Splitter) 1 ea UNSCH PRN OTHER 06/19/15 03:30 06/28/15 09:35 (Prevacid Odt) 30 mg DAILY NG 07/08/15 09:00 02/24/16 09:38 (Morphine Inj) 2 mg Q3H PRN IV PUSH 07/28/15 00:45 02/20/16 07:19 (Lovenox Inj) 40 mg Q24H SQ 08/09/15 22:00 02/23/16 22:24 ([place] 5-325 Mg) 1 tab Q6H PRN PO 08/15/15 15:45 02/23/16 22:23 (Sublimaze Inj) 50 mcg Q2H PRN IV PUSH 08/15/15 15:45 01/15/16 13:10 (Santyl Oint) 1 applic DAILY TOP 08/21/15 09:00 02/24/16 09:00 (Levsin Liq) 0.125 mg Q4H PRN PO 09/06/15 11:00 02/19/16 06:30 (D50w (Vial) Inj) 25 ml UNSCH PRN IV PUSH 10/12/15 17:30 01/06/16 20:14 (Glucagon Inj) 1 mg UNSCH PRN OTHER 10/12/15 17:30 (NovoLIN R SUPPLEMENTAL SCALE) 1 Q6H SQ 10/12/15 18:00 02/23/16 06:00 (Proamatine) 2.5 mg BID G-TUBE 11/15/15 21:00 02/24/16 09:38 (Brethine Inj) 1 mg UNSCH PRN SQ 12/06/15 06:45 (Ativan Inj) 1 mg Q3HR PRN IVP 12/15/15 17:00 02/20/16 06:10 (Deltasone) 2.5 mg DAILY PO 12/23/15 09:00 02/24/16 09:38 (Free Water) 200 ml Q6HR G-TUBE 01/03/16 18:00 02/24/16 05:51 (KCl 40 Meq/30 ml Liq) 20 meq DAILY GT 01/08/16 17:00 02/24/16 09:37 (Urecholine) 10 mg Q8HR PO 01/13/16 22:00 02/24/16 05:51 (Sinemet 25-100 Mg) 1.5 tab QID GT 01/14/16 21:00 02/24/16 09:37 (ZyPREXA) 2.5 mg Q48H GT 01/21/16 21:00 02/22/16 22:17 Chlorhexidine Gluconate 15 ml 15 ml BID@08,20 MT 02/04/16 10:20 02/24/16 09:38 (Diflucan 200 Mg Premix Bag) 100 ml @ 100 mls/hr Q24H IV 02/23/16 11:00 02/23/16 22:22 A/P Problem List: (1) Sepsis due to urinary tract infection ICD Code: A41.9 Status: Resolved (2) Acute respiratory failure ICD Code: J96.00 Status: Acute (3) Chronic respiratory failure ICD Code: J96.10 Status: Chronic (4) Parkinson disease ICD Code: G20 Status: Chronic (5) UTI (urinary tract infection) ICD Code: N39.0 Status: Acute (6) Encephalopathy ICD Code: G93.40 Status: Resolved Assessment and Plan S/P Septic shock Recurrent aspiration pneumonitis. Klebsiella and Pseudomonas.- previously new sputum growing gram negative rods Leukocytosis- afebrile- WBC up to 25,000 (on po prednisone tapered down to 2.5 mg daily) Candiduria- repeat C and s pending (specimen sent from [place] valdez- changed ) - S/P Zosyn. S/P Vancomycin and Levaquin course. CXR unchanged -clinically copious secretions requiring suctioning thick greenish sputum- culture- Pseudomonas -sputum specimen sent- growing gram negative rods - final C and s pending - urine C and S- Heena - diflucan x 5 days (start date 01/26) - Tobramycin nebulization d/c 02/11/16. - ID reconsulted for UTI. Continue fluconazole. Chronic respiratory failure Chronic tracheostomy. Tolerated T piece. S/P recurrent right pneumothorax status post pigtail catheter removal. Currently on 40% oxygen 02/24/16. CXR stable. - pulmonology ff. continue Bipap at night. - Suction secretions and Levsin as needed - on po steroids- Prednisone 2.5 mg po daily - Duo nebs 4 times a day and when necessary. S/p colistin nebs and Solumedrol. Metabolic Encephalopathy Parkinson's disease underlying. neuro consulted . CT head 06/18/15: - diffuse atrophy unchanged. No acute intracranial findings. The pt continues to become more alert. - Continue cognitive efforts and pain meds. - Parkinson's medication increased by neurology. Have decreased antipsychotics to QOD dosing. Now off antipsychotics - continue to wean clonazepam. Changed to q 48 hours 02/13. Will d/c 02/23. Malnutrition/protein calorie - moderate Status post PEG. Concern for hematemesis 12/05. GI evaluated pt. Gastroccult was negative and hemoglobin has been stable. J tube not functioning 02/11. - Current Colace/senna for bowel regimen. - continue PPI.- Prevacid. - IR cleared J tube 02/12/16. Will ask dietary to recommend another tube feed, hoping it will be less prone to clogging the tube than the current tube feed. Flushes between meds were recommended. The pt will remain on the same TFs. Bilateral lower extremity Contractures Stage II DU. - Wound care team following. - Continue physical therapy. - turn q 2 hours. GI prophylaxis: PPI. Stool softener PRN constipation. DVT PPx: Lovenox Discharge Planning Awaiting clinical improvement. Problem Qualifiers (1) Chronic respiratory failure: Qualified Code: J96.10 - Chronic respiratory failure, unspecified whether with hypoxia or hypercapnia Salazar Santa DO Feb 24, 2016 11:46
--- NOTE | 2016-02-24 11:50 | HHI.IDPN ---
Subjective Subjective Remarks Patient known to me. ID reconsulted for low grade fevers. Notes reviewed Temps ok No vomiting episodes. Tube feeds no residuals. UO ok. Valdez changed yday. Trach on T-peice. Secretions clear white small amounts. last few temps ok. BP ok Clinically stable. d/w RN Antibiotics diflucan Lines Peripheral IV with no e/o infection Past Medical History reviewed Allergies: Coded Allergies: *MDRO Multi-Drug Resistant Organism (Verified Adverse Reaction, Unknown, ESBL, carbapenem resistant Pseudomonas, 01/13/16) ESBL E. coli (urine) - 02/19/2015; ESBL K. pneumoniae (sputum-06/18/15, 08/03/15, 09/20/15,10/12/15, 11/27/15, 12/26/15, 01/09/16), (urine-08/03/15 & 11/27/15), MRSA PCR POSITIVE - 03/20/2015 MDR-Pseudomonas (sputum)- 08/18/15, 09/20/15, 10/2015 (Carbapenem resistant) Objective . Vital Signs Date Time Temp Pulse Resp B/P Pulse Ox O2 Delivery O2 Flow Rate FiO2 02/24/16 08:00 95.6 59 22 105/72 97 02/24/16 04:00 97.5 59 21 98/42 100 02/24/16 00:29 98.1 86 21 118/70 97 02/24/16 00:11 95 40 02/24/16 00:00 T-Piece 10.00 40 02/23/16 20:50 98.9 87 21 103/58 99 02/23/16 16:00 99.0 70 19 88/56 96 02/23/16 14:00 T-Piece 6.00 40 02/23/16 12:00 96.8 66 18 99/58 98 02/23/16 02/23/16 02/24/16 15:00 23:00 07:00 Output Total 500 ml 600 ml 50 ml Balance -500 ml -600 ml -50 ml Output Urine Total 500 ml 600 ml 50 ml # Bowel Movements 0 . Microbiology Date/Time Procedure Status Source Growth 02/21/16 12:56 Urine Culture - Final Complete Urine Clean Catch Heena Tropicalis Imaging Abdomen X-Ray 12/07/15 0600 Signed Impressions: Service Date/Time: Monday, December 07, 2015 03:40 - CONCLUSION: No dilated loops of small or large bowel. Tai Jaquez MD Chest X-Ray 12/07/15 0000 Signed Impressions: Service Date/Time: Monday, December 07, 2015 03:34 - CONCLUSION: Right lung is clear. Slight improvement of interstitial infiltrates left mid and lower lung. Tai Jaquez MD Abdomen X-Ray 12/06/15 0000 Signed Impressions: Service Date/Time: Sunday, December 06, 2015 08:05 - CONCLUSION: No acute disease. Erlin Barajas MD Abdomen Ultrasound 12/06/15 0000 Signed Impressions: Service Date/Time: Sunday, December 06, 2015 17:42 - CONCLUSION: 1. The gallbladder is unremarkable with no evidence of cholelithiasis. 2. Simple cyst in the left kidney. 3. Mild pyelocaliectasis in the right kidney. Salazar Thurman MD Chest X-Ray 12/04/15 0600 Signed Impressions: Service Date/Time: Friday, December 04, 2015 03:50 - CONCLUSION: Interstitial densities in the right lung. Néstor Matamoros MD Chest X-Ray 11/28/15 0000 Signed Impressions: Service Date/Time: Saturday, November 28, 2015 00:21 - CONCLUSION: No acute cardiopulmonary disease. Eugene Schmid MD Abdomen X-Ray 11/26/15 0000 Signed Impressions: Service Date/Time: November 12:34 - CONCLUSION: 1. Nonobstructive bowel gas pattern. 2. Stable position of gastrostomy tube. Multiple surgical screws secure the proximal left femur. 3. No obvious pneumoperitoneum on the single projection provided. Scott Goode MD Upper Extremity Ultrasound 10/13/15 0000 Signed Impressions: Service Date/Time: Tuesday, October 13, 2015 09:51 - CONCLUSION: 1. No evidence of deep venous thrombosis. John Anderson MD Renal Ultrasound 10/07/15 0000 Signed Impressions: Service Date/Time: Wednesday, October 07, 2015 18:29 - CONCLUSION: 1. No acute findings. 3.6 cm left renal cyst. Valdez catheter in bladder. Amaury Ellsworth MD Tunnelled Chest Tube Removal 08/05/15 1100 Signed Impressions: Service Date/Time: Wednesday, August 05, 2015 11:00 - CONCLUSION: Uncomplicated chest tube removal. Blaine Jackson MD Chest Tube Change 07/31/15 0000 Signed Impressions: Service Date/Time: Friday, July 31, 2015 14:34 - CONCLUSION: Uncomplicated reposition of previously placed chest tube as above. Blaine Jackson MD Chest Tube Insertion 07/30/15 0000 Signed Impressions: Service Date/Time: July 14:50 - CONCLUSION: Uncomplicated chest tube placement as above. Blaine Jackson MD Catheter Change 07/27/15 0000 Signed Impressions: Service Date/Time: Monday, July 27, 2015 14:43 - CONCLUSION: Uncomplicated gastrostomy tube exchange as above. Blaine Jackson MD Chest CT 07/11/15 Signed Impressions: Service Date/Time: Saturday, July 11, 2015 09:49 - CONCLUSION: Scattered patchy densities significantly improved from previous study. Tiny anterior right basilar pneumothorax. Right-sided chest tube in good position. Néstor Matamoros MD Head CT 06/18/151902 Signed Impressions: Service Date/Time: June 19:31 - CONCLUSION: Diffuse atrophy unchanged. No acute intracranial findings. Kush Briscoe MD Abdomen/Pelvis CT 06/18/151902 Signed Impressions: Service Date/Time: June 19:36 - CONCLUSION: 1. Chronic nonspecific urinary bladder wall thickening. Bladder collapsed with Valdez catheter in place. 2. Chronic bilateral mid to lower lung zone groundglass opacity. 3. Nonobstructing left renal calculus. 4. Distended rectum. Kush Briscoe MD Physical Exam GENERAL: No interaction, dyspneic. SKIN: Cool and moist. No generalized rash. HEENT: [place] conjunctivae, no icterus, moist mucosa. NECK: Trach site looks ok. Neck is supple RESPIRATORY: Coarse BS razia, with few rhonchi GASTROINTESTINAL: Abdomen soft, not distended. No guarding. PEG site looks okay. MUSCULOSKELETAL: No cyanosis No pedal edema. Contracted all 4 extremities. NEUROLOGICAL: Eyes open, Extremities contracted Peripheral IV line sites with no evidence of infection. ; Valdez in place, urine looks clear Assessment & Plan Remarks IMPRESSION New fever C.tropicalis Cath associated UTI. History of PSAE ESBL cath associated UTI. S/P Rx Chronic respiratory failure on trach PSAE and ESBL Kleb in sputum in recent past. Chronic encephalopathy with underlying diagnosis of advanced dementia as well as advanced Parkinson's disease. Status post trach Status post gastrostomy tube with no evidence of infection. Stage II sacral decubitus ulcer present on admission. h/o Recurrent aspiration tube feed related in past. Recommendations CXR clear. IV lines ok. valdez changed 02/23/16. Diflucan for 4 more days. Recommend once a month valdez change as for chronic patients. Will sign off please call back if any change in clinical condition or questions. Trina Moss MD Feb 24, 2016 11:50
[2016-02-24] MEDS: ENOXAPARIN SODIUM 40 MG/0.4 ML SYRINGE SQ SCH (23:09)
[2016-02-24] MEDS: OLANZapine 2.5 MG TAB GT SCH (23:09)
[2016-02-25] VITALS (10 sets, daily range): BP systolic 106–140; BP diastolic 59–90; PULSE 66–84; RESP 18–24; TEMP 96.1–97.9; O2SAT 94–99
[2016-02-25] MEDS: BETHANECHOL CHL 10 MG TAB PO SCH ×3 (05:41→21:39)
[2016-02-25] MEDS: INSULIN NovoLIN REGULAR SUPPLEMENTAL SCALE SQ SCH ×4 (05:41→23:58)
[2016-02-25] MEDS: FREE WATER G-TUBE SCH ×3 (05:41→18:00)
[2016-02-25] MEDS: POTASSIUM CL 40 MEQ/30 ML LIQ UDC GT SCH (08:24)
[2016-02-25] MEDS: CARBIDOPA/LEVODOPA 25 MG/100 MG TAB GT SCH ×4 (08:25→21:39)
[2016-02-25] MEDS: GABAPENTIN 300 MG CAP G-TUBE SCH ×2 (08:25→21:39)
[2016-02-25] MEDS: FLUCONAZOLE 100 MG TAB PO SCH (08:25)
[2016-02-25] MEDS: MIDODRINE 5 MG TAB G-TUBE SCH ×2 (08:25→21:39)
[2016-02-25] MEDS: predniSONE 5 MG TAB PO SCH (08:26)
[2016-02-25] MEDS: PARoxetine HCL 20 MG TAB G-TUBE SCH (08:26)
[2016-02-25] MEDS: LACTOBACILLUS ACIDOPHILUS TAB PO SCH ×3 (08:26→18:44)
[2016-02-25] MEDS: LANSOPRAZOLE SOLUTAB 30 MG TAB NG SCH (08:26)
[2016-02-25] MEDS: SODIUM CHLORIDE 0.9% FLUSH 5 ML FLUSH IVF SCH ×2 (08:27→21:00)
[2016-02-25] MEDS: COLLAGENASE OINT 30 GM TUBE TOP SCH (08:27)
[2016-02-25] MEDS: CHLORHEXIDINE GLUCONATE 0.12% 30 ML CUP MT SCH ×2 (08:28→20:00)
[2016-02-25] MEDS: ARTIFICIAL TEARS OPTH SOLN 15 ML BTL EACH EYE SCH ×3 (08:28→18:45)
[2016-02-25] MEDS: ACETAMINOPHEN/HYDROcodone 325 MG/5 MG TAB PO PRN (08:42)
--- NOTE | 2016-02-25 14:09 | HHI.PR ---
Subjective Remarks The patient was awake when asked questions. He appeared comfortable. He had discharge coming out of the left eye and that eye did appear red. Discussed with nursing. Objective Vitals Vital Signs Date Time Temp Pulse Resp B/P Pulse Ox O2 Delivery O2 Flow Rate FiO2 02/25/16 12:22 96.3 66 18 106/59 98 02/25/16 08:43 97.9 80 20 121/71 95 02/25/16 08:30 99 T-piece 28 02/25/16 04:26 97 30 02/25/16 04:00 97.4 72 20 107/75 97 02/25/16 04:00 97.4 72 20 107/75 97 02/25/16 01:11 97.8 69 20 115/61 94 02/25/16 01:05 96 30 02/24/16 22:03 96 30 02/24/16 20:24 97.7 70 18 112/60 99 02/24/16 16:00 96.4 69 22 106/70 96 I/O 02/24/16 02/24/16 02/24/16 02/25/16 02/25/16 02/25/16 07:00 15:00 23:00 07:00 15:00 23:00 Output Total 50 ml 200 ml 350 ml 300 ml Balance -50 ml -200 ml -350 ml -300 ml Output Urine Total 50 ml 200 ml 350 ml 300 ml # Bowel Movements 0 0 Imaging Last Impressions Chest X-Ray 02/23/16 0000 Signed Impressions: Service Date/Time: Tuesday, February 23, 2016 14:25 - CONCLUSION: No acute disease. Cecil Galarza MD Tube Change 02/03/16 0000 Signed Impressions: Service Date/Time: Wednesday, February 03, 2016 17:13 - CONCLUSION: Uncomplicated gastrojejunostomy tube exchange as above. This is a recurrent occlusion with this tube. We will institute Q8 hour flushing of the tube with warm water. Tai Taylor Jr., MD Gastrostomy Tube Change 01/15/16 0000 Signed Impressions: Service Date/Time: Friday, January 15, 2016 12:28 - CONCLUSION: Successful GJ tube exchange as above. Scott Goode MD Abdomen X-Ray 01/12/16 1628 Signed Impressions: Service Date/Time: Tuesday, January 12, 2016 17:35 - CONCLUSION: No evidence of obstruction or free air. Reyes Jewell MD Abdomen Ultrasound 12/06/15 0000 Signed Impressions: Service Date/Time: Sunday, December 06, 2015 17:42 - CONCLUSION: 1. The gallbladder is unremarkable with no evidence of cholelithiasis. 2. Simple cyst in the left kidney. 3. Mild pyelocaliectasis in the right kidney. Salazar Thurman MD Upper Extremity Ultrasound 10/13/15 0000 Signed Impressions: Service Date/Time: Tuesday, October 13, 2015 09:51 - CONCLUSION: 1. No evidence of deep venous thrombosis. John Anderson MD Renal Ultrasound 10/07/15 0000 Signed Impressions: Service Date/Time: Wednesday, October 07, 2015 18:29 - CONCLUSION: 1. No acute findings. 3.6 cm left renal cyst. Valdez catheter in bladder. Amaury Ellsworth MD Tunnelled Chest Tube Removal 08/05/15 1100 Signed Impressions: Service Date/Time: Wednesday, August 05, 2015 11:00 - CONCLUSION: Uncomplicated chest tube removal. Blaine Jackson MD Chest Tube Change 07/31/15 0000 Signed Impressions: Service Date/Time: Friday, July 31, 2015 14:34 - CONCLUSION: Uncomplicated reposition of previously placed chest tube as above. Blaine Jackson MD Chest Tube Insertion 07/30/15 0000 Signed Impressions: Service Date/Time: July 14:50 - CONCLUSION: Uncomplicated chest tube placement as above. Blaine Jackson MD Catheter Change 07/27/15 0000 Signed Impressions: Service Date/Time: Monday, July 27, 2015 14:43 - CONCLUSION: Uncomplicated gastrostomy tube exchange as above. Blaine Jackson MD Chest CT 07/11/15 0000 Signed Impressions: Service Date/Time: Saturday, July 11, 2015 09:49 - CONCLUSION: Scattered patchy densities significantly improved from previous study. Tiny anterior right basilar pneumothorax. Right-sided chest tube in good position. Néstor Matamoros MD Head CT 06/18/15 035 Signed Impressions: Service Date/Time: June 19:31 - CONCLUSION: Diffuse atrophy unchanged. No acute intracranial findings. Kush Briscoe MD Abdomen/Pelvis CT 06/18/15 [id number] Signed Impressions: Service Date/Time: June 19:36 - CONCLUSION: 1. Chronic nonspecific urinary bladder wall thickening. Bladder collapsed with Valdez catheter in place. 2. Chronic bilateral mid to lower lung zone groundglass opacity. 3. Nonobstructing left renal calculus. 4. Distended rectum. Kush Briscoe MD Objective Remarks GENERAL: Cachectic patient with limbs contracted. Eyes open. SKIN: Warm and dry. HEAD: Normocephalic. EYES: Left erythematous and with drainage. NECK: 8.0 Distal XLT trach in place CARDIOVASCULAR: Regular rate and rhythm without murmurs, gallops, or rubs. RESPIRATORY: coarse breath sounds. GASTROINTESTINAL: Abdomen soft, non-tender, nondistended. MUSCULOSKELETAL: Contracted limbs. Wound on lower back currently bandaged. Procedures 07/26- PEG replacement 07/29- right pigtail catheter placement for new pneumothorax Medications and IVs Current Medications Medications (Trade) Dose Ordered Sig/Ajssi Route Start Time Stop Time Status Last Admin (NS Flush) 2 ml UNSCH PRN IVF 06/18/15 21:30 02/01/16 03:04 (NS Flush) 2 ml BID IVF 06/19/15 09:00 02/25/16 08:27 (Tylenol 650 Mg/ 20 ml Liq) 650 mg Q6H PRN TUBE 06/18/15 21:30 02/23/16 02:55 (Tears Naturale Opth Soln) 1 drop TID EACH EYE 06/19/15 09:00 02/25/16 12:03 (Zofran Inj) 4 mg Q6H PRN IV 06/18/15 21:30 11/26/15 11:54 (Neurontin) 300 mg BID G-TUBE 06/19/15 09:00 02/25/16 08:25 (Lactinex) 1 tab TID PO 06/19/15 09:00 02/25/16 12:02 (Paxil) 20 mg DAILY G-TUBE 06/19/15 09:00 02/25/16 08:26 (Pill Splitter) 1 ea UNSCH PRN OTHER 06/19/15 03:30 06/28/15 09:35 (Prevacid Odt) 30 mg DAILY NG 07/08/15 09:00 02/25/16 08:26 (Morphine Inj) 2 mg Q3H PRN IV PUSH 07/28/15 00:45 02/20/16 07:19 (Lovenox Inj) 40 mg Q24H SQ 08/09/15 22:00 02/24/16 23:09 ([place] 5-325 Mg) 1 tab Q6H PRN PO 08/15/15 15:45 02/25/16 08:42 (Sublimaze Inj) 50 mcg Q2H PRN IV PUSH 08/15/15 15:45 01/15/16 13:10 (Santyl Oint) 1 applic DAILY TOP 08/21/15 09:00 02/25/16 08:27 (Levsin Liq) 0.125 mg Q4H PRN PO 09/06/15 11:00 02/19/16 06:30 (D50w (Vial) Inj) 25 ml UNSCH PRN IV PUSH 10/12/15 17:30 01/06/16 20:14 (Glucagon Inj) 1 mg UNSCH PRN OTHER 10/12/15 17:30 (NovoLIN R SUPPLEMENTAL SCALE) 1 Q6H SQ 10/12/15 18:00 02/25/16 05:41 (Proamatine) 2.5 mg BID G-TUBE 11/15/15 21:00 02/25/16 08:25 (Brethine Inj) 1 mg UNSCH PRN SQ 12/06/15 06:45 (Ativan Inj) 1 mg Q3HR PRN IVP 12/15/15 17:00 02/20/16 06:10 (Deltasone) 2.5 mg DAILY PO 12/23/15 09:00 02/25/16 08:26 (Free Water) 200 ml Q6HR G-TUBE 01/03/16 18:00 02/25/16 12:00 (KCl 40 Meq/30 ml Liq) 20 meq DAILY GT 01/08/16 17:00 02/25/16 08:24 (Urecholine) 10 mg Q8HR PO 01/13/16 22:00 02/25/16 05:41 (Sinemet 25-100 Mg) 1.5 tab QID GT 01/14/16 21:00 02/25/16 12:02 (ZyPREXA) 2.5 mg Q48H GT 01/21/16 21:00 02/24/16 23:09 (Peridex 0.12% Liq) 15 ml BID@08,20 MT 02/04/16 10:20 02/25/16 08:28 (Diflucan) 100 mg DAILY PO 02/25/16 09:00 02/28/16 08:59 02/25/16 08:25 A/P Problem List: (1) Sepsis due to urinary tract infection ICD Code: A41.9 Status: Resolved (2) Acute respiratory failure ICD Code: J96.00 Status: Acute (3) Chronic respiratory failure ICD Code: J96.10 Status: Chronic (4) Parkinson disease ICD Code: G20 Status: Chronic (5) UTI (urinary tract infection) ICD Code: N39.0 Status: Acute (6) Encephalopathy ICD Code: G93.40 Status: Resolved Assessment and Plan S/P Septic shock Recurrent aspiration pneumonitis. Klebsiella and Pseudomonas.- previously new sputum growing gram negative rods Leukocytosis- afebrile- WBC up to 25,000 (on po prednisone tapered down to 2.5 mg daily) Candiduria- repeat C and s pending (specimen sent from [facility]- changed ) - S/P Zosyn. S/P Vancomycin and Levaquin course. CXR unchanged -clinically copious secretions requiring suctioning thick greenish sputum- culture- Pseudomonas -sputum specimen sent- growing gram negative rods - final C and s pending - urine C and S- Heena - diflucan x 5 days (start date 01/26) - Tobramycin nebulization d/c 02/11/16. - ID reconsulted for UTI. Continue fluconazole. Chronic respiratory failure Chronic tracheostomy. Tolerated T piece. S/P recurrent right pneumothorax status post pigtail catheter removal. Currently on 28% oxygen 02/25/16. CXR stable. - pulmonology ff. continue Bipap at night. - Suction secretions and Levsin as needed - on po steroids- Prednisone 2.5 mg po daily - Duo nebs 4 times a day and when necessary. S/p colistin nebs and Solumedrol. Metabolic Encephalopathy Parkinson's disease underlying. neuro consulted . CT head 06/18/15: - diffuse atrophy unchanged. No acute intracranial findings. The pt continues to become more alert. - Continue cognitive efforts and pain meds. - Parkinson's medication increased by neurology. Have decreased antipsychotics to QOD dosing. Now off antipsychotics - continue to wean clonazepam. Changed to q 48 hours 02/13. D/c 02/23. Malnutrition/protein calorie - moderate Status post PEG. Concern for hematemesis 12/05. GI evaluated pt. Gastroccult was negative and hemoglobin has been stable. J tube not functioning 02/11. - Current Colace/senna for bowel regimen. - continue PPI.- Prevacid. - IR cleared J tube 02/12/16. Will ask dietary to recommend another tube feed, hoping it will be less prone to clogging the tube than the current tube feed. Flushes between meds were recommended. The pt will remain on the same TFs. Bilateral lower extremity Contractures Stage II DU. - Wound care team following. - Continue physical therapy. - turn q 2 hours. Conjunctivitis Left eye with drainage and erythema. - start Polytrim eye drops 02/24. GI prophylaxis: PPI. Stool softener PRN constipation. DVT PPx: Lovenox Discharge Planning Awaiting clinical improvement. Problem Qualifiers (1) Chronic respiratory failure: Qualified Code: J96.10 - Chronic respiratory failure, unspecified whether with hypoxia or hypercapnia Salazar Santa DO Feb 25, 2016 14:09
[2016-02-25] MEDS: POLYMYXIN/TRIMETHOPRIM OPHT SOLN 10 ML BTL LEFT EYE SCH ×2 (18:00→23:57)
--- NOTE | 2016-02-25 18:55 | HHI.PR ---
Subjective Remarks Awake , and 0n a T bar FIO2 30 % .On Bipap at HS. On tube feeds at 40 CC .O2 Sat 97. Responds weakly. Objective Vital Signs Date Time Temp Pulse Resp B/P Pulse Ox O2 Delivery O2 Flow Rate FiO2 02/25/16 12:22 96.3 66 18 106/59 98 02/25/16 08:43 97.9 80 20 121/71 95 02/25/16 08:30 99 T-piece 28 02/25/16 04:26 97 30 02/25/16 04:00 97.4 72 20 107/75 97 02/25/16 04:00 97.4 72 20 107/75 97 02/25/16 01:11 97.8 69 20 115/61 94 02/25/16 01:05 96 30 02/24/16 22:03 96 30 02/24/16 20:24 97.7 70 18 112/60 99 I/O 02/24/16 02/24/16 02/24/16 02/25/16 02/25/16 02/25/16 07:00 15:00 23:00 07:00 15:00 23:00 Output Total 50 ml 200 ml 350 ml 300 ml Balance -50 ml -200 ml -350 ml -300 ml Output Urine Total 50 ml 200 ml 350 ml 300 ml # Bowel Movements 0 0 Objective Remarks This is a thin white male who is , awake with a trach tube in place. HEENT: Pupils are equal and reactive to light. CHEST:Decreased breath sounds,with Occ wheezes + and no crackles CARDIOVASCULAR: S1 and S2 is normal.No murmur. ABDOMEN: Soft, nondistended. BS +. He has a PEG tube in place. EXTREMITIES: Contractures.muscle wasting. NEURO: Awake and has weak extremities. Skin is warm. Assessment and Plan Assessment and Plan IMPRESSION 1. Chronic Respiratory failure. 2. Sepsis, Aspiration. 3. Left basal Pneumonia, Resolved 4. Tracheobronchitis 5. Parkinson's disease 6. Dementia. 7. Severe Deconditioning. Plan : 1. Continue on Bipap 06/20, FIo2 30 % at 10 pm to 7 am. 2. Nebs Bid , duoneb. 3. Cont tube feeds Jevity at 45 CC 4. T Bar 35 % daytime. 5. Chest X ray in am 6. Cont Trach toilet and lavage. 7. Postural drainage tid 8. CBC,BMP. 1 Darren Kiser MD Feb 25, 2016 18:55
[2016-02-25] MEDS: ENOXAPARIN SODIUM 40 MG/0.4 ML SYRINGE SQ SCH (21:40)
[2016-02-26] VITALS (10 sets, daily range): BP systolic 107–138; BP diastolic 62–89; PULSE 56–90; RESP 18–22; TEMP 97–98.6; O2SAT 60–99
[2016-02-26] MEDS: FREE WATER G-TUBE SCH ×5 (06:00→23:18)
[2016-02-26] MEDS: POLYMYXIN/TRIMETHOPRIM OPHT SOLN 10 ML BTL LEFT EYE SCH ×3 (06:00→17:51)
[2016-02-26] MEDS: BETHANECHOL CHL 10 MG TAB PO SCH ×3 (06:00→21:27)
[2016-02-26] MEDS: INSULIN NovoLIN REGULAR SUPPLEMENTAL SCALE SQ SCH ×3 (06:00→23:17)
[2016-02-26] MEDS: LANSOPRAZOLE SOLUTAB 30 MG TAB NG SCH (09:00)
[2016-02-26] MEDS: POTASSIUM CL 40 MEQ/30 ML LIQ UDC GT SCH (09:00)
[2016-02-26] MEDS: predniSONE 5 MG TAB PO SCH (09:00)
[2016-02-26] MEDS: FLUCONAZOLE 100 MG TAB PO SCH (09:00)
[2016-02-26] MEDS: ARTIFICIAL TEARS OPTH SOLN 15 ML BTL EACH EYE SCH ×3 (09:00→17:51)
[2016-02-26] MEDS: PARoxetine HCL 20 MG TAB G-TUBE SCH (09:00)
[2016-02-26] MEDS: COLLAGENASE OINT 30 GM TUBE TOP SCH (09:00)
[2016-02-26] MEDS: SODIUM CHLORIDE 0.9% FLUSH 5 ML FLUSH IVF SCH ×2 (09:00→21:00)
[2016-02-26] MEDS: GABAPENTIN 300 MG CAP G-TUBE SCH ×2 (09:00→21:27)
[2016-02-26] MEDS: CHLORHEXIDINE GLUCONATE 0.12% 30 ML CUP MT SCH ×2 (11:15→20:00)
[2016-02-26] MEDS: LACTOBACILLUS ACIDOPHILUS TAB PO SCH ×3 (11:16→17:50)
[2016-02-26] MEDS: CARBIDOPA/LEVODOPA 25 MG/100 MG TAB GT SCH ×4 (11:17→21:27)
[2016-02-26] MEDS: ACETAMINOPHEN/HYDROcodone 325 MG/5 MG TAB PO PRN ×2 (11:17→17:51)
--- NOTE | 2016-02-26 13:19 | HHI.PR ---
Subjective Remarks The patient was resting comfortably. The patient's nurse was at the bedside trying to unclog the patient's G-tube. Objective Vitals Vital Signs Date Time Temp Pulse Resp B/P Pulse Ox O2 Delivery O2 Flow Rate FiO2 02/26/16 12:47 98.6 90 18 113/72 97 02/26/16 08:28 97.0 90 18 107/66 60 02/26/16 08:10 98 T-piece 28 02/26/16 05:58 99 30 02/26/16 05:58 99 BiPAP 30 02/26/16 04:00 97.3 56 20 113/75 99 02/26/16 00:00 97.4 64 22 138/89 97 02/25/16 20:21 99 30 02/25/16 20:00 97.9 84 24 140/90 99 02/25/16 19:05 96.1 82 18 125/76 99 I/O 02/25/16 02/25/16 02/25/16 02/26/16 02/26/16 02/26/16 07:00 15:00 23:00 07:00 15:00 23:00 Output Total 300 ml 1000 ml Balance -300 ml -1000 ml Output Urine Total 300 ml 1000 ml # Bowel Movements 0 Imaging Last Impressions Chest X-Ray 02/23/16 0000 Signed Impressions: Service Date/Time: Tuesday, February 23, 2016 14:25 - CONCLUSION: No acute disease. Cecil Galarza MD Tube Change 02/03/16 0000 Signed Impressions: Service Date/Time: Wednesday, February 03, 2016 17:13 - CONCLUSION: Uncomplicated gastrojejunostomy tube exchange as above. This is a recurrent occlusion with this tube. We will institute Q8 hour flushing of the tube with warm water. Tai Taylor Jr., MD Gastrostomy Tube Change 01/15/16 0000 Signed Impressions: Service Date/Time: Friday, January 15, 2016 12:28 - CONCLUSION: Successful GJ tube exchange as above. Scott Goode MD Abdomen X-Ray 01/12/16 6598 Signed Impressions: Service Date/Time: Tuesday, January 12, 2016 17:35 - CONCLUSION: No evidence of obstruction or free air. Reyes Jewell MD Abdomen Ultrasound 12/06/15 0000 Signed Impressions: Service Date/Time: Sunday, December 06, 2015 17:42 - CONCLUSION: 1. The gallbladder is unremarkable with no evidence of cholelithiasis. 2. Simple cyst in the left kidney. 3. Mild pyelocaliectasis in the right kidney. Salazar Thurman MD Upper Extremity Ultrasound 10/13/15 0000 Signed Impressions: Service Date/Time: Tuesday, October 13, 2015 09:51 - CONCLUSION: 1. No evidence of deep venous thrombosis. John Anderson MD Renal Ultrasound 10/07/15 0000 Signed Impressions: Service Date/Time: Wednesday, October 07, 2015 18:29 - CONCLUSION: 1. No acute findings. 3.6 cm left renal cyst. Valdez catheter in bladder. Amaury Ellsworth MD Tunnelled Chest Tube Removal 08/05/15 1100 Signed Impressions: Service Date/Time: Wednesday, August 05, 2015 11:00 - CONCLUSION: Uncomplicated chest tube removal. Blaine Jackson MD Chest Tube Change 07/31/15 0000 Signed Impressions: Service Date/Time: Friday, July 31, 2015 14:34 - CONCLUSION: Uncomplicated reposition of previously placed chest tube as above. Blaine Jackson MD Chest Tube Insertion 07/30/15 0000 Signed Impressions: Service Date/Time: July 14:50 - CONCLUSION: Uncomplicated chest tube placement as above. Blaine Jackson MD Catheter Change 07/27/15 0000 Signed Impressions: Service Date/Time: Monday, July 27, 2015 14:43 - CONCLUSION: Uncomplicated gastrostomy tube exchange as above. Blaine Jackson MD Chest CT 07/11/15 0000 Signed Impressions: Service Date/Time: Saturday, July 11, 2015 09:49 - CONCLUSION: Scattered patchy densities significantly improved from previous study. Tiny anterior right basilar pneumothorax. Right-sided chest tube in good position. Néstor Matamoros MD Head CT 06/18/151902 Signed Impressions: Service Date/Time: June 19:31 - CONCLUSION: Diffuse atrophy unchanged. No acute intracranial findings. Kush Briscoe MD Abdomen/Pelvis CT 06/18/151902 Signed Impressions: Service Date/Time: June 19:36 - CONCLUSION: 1. Chronic nonspecific urinary bladder wall thickening. Bladder collapsed with Valdez catheter in place. 2. Chronic bilateral mid to lower lung zone groundglass opacity. 3. Nonobstructing left renal calculus. 4. Distended rectum. Kush Briscoe MD Objective Remarks GENERAL: Cachectic patient with limbs contracted. Eyes open. SKIN: Warm and dry. HEAD: Normocephalic. EYES: Left erythematous and with drainage. NECK: 8.0 Distal XLT trach in place CARDIOVASCULAR: Regular rate and rhythm without murmurs, gallops, or rubs. RESPIRATORY: coarse breath sounds. GASTROINTESTINAL: Abdomen soft, non-tender, nondistended. MUSCULOSKELETAL: Contracted limbs. Wound on lower back currently bandaged. Procedures 07/26- PEG replacement 07/29- right pigtail catheter placement for new pneumothorax Medications and IVs Current Medications Medications (Trade) Dose Ordered Sig/Jassi Route Start Time Stop Time Status Last Admin (NS Flush) 2 ml UNSCH PRN IVF 06/18/15 21:30 02/01/16 03:04 (NS Flush) 2 ml BID IVF 06/19/15 09:00 02/25/16 21:00 (Tylenol 650 Mg/ 20 ml Liq) 650 mg Q6H PRN TUBE 06/18/15 21:30 02/23/16 02:55 (Tears Naturale Opth Soln) 1 drop TID EACH EYE 06/19/15 09:00 02/25/16 18:45 (Zofran Inj) 4 mg Q6H PRN IV 06/18/15 21:30 11/26/15 11:54 (Neurontin) 300 mg BID G-TUBE 06/19/15 09:00 02/25/16 21:39 (Lactinex) 1 tab TID PO 06/19/15 09:00 02/26/16 11:16 (Paxil) 20 mg DAILY G-TUBE 06/19/15 09:00 02/25/16 08:26 (Pill Splitter) 1 ea UNSCH PRN OTHER 06/19/15 03:30 06/28/15 09:35 (Prevacid Odt) 30 mg DAILY NG 07/08/15 09:00 02/25/16 08:26 (Morphine Inj) 2 mg Q3H PRN IV PUSH 07/28/15 00:45 02/20/16 07:19 (Lovenox Inj) 40 mg Q24H SQ 08/09/15 22:00 02/25/16 21:40 ([place] 5-325 Mg) 1 tab Q6H PRN PO 08/15/15 15:45 02/26/16 11:17 (Sublimaze Inj) 50 mcg Q2H PRN IV PUSH 08/15/15 15:45 01/15/16 13:10 (Santyl Oint) 1 applic DAILY TOP 08/21/15 09:00 02/25/16 08:27 (Levsin Liq) 0.125 mg Q4H PRN PO 09/06/15 11:00 02/19/16 06:30 (D50w (Vial) Inj) 25 ml UNSCH PRN IV PUSH 10/12/15 17:30 01/06/16 20:14 (Glucagon Inj) 1 mg UNSCH PRN OTHER 10/12/15 17:30 (NovoLIN R SUPPLEMENTAL SCALE) 1 Q6H SQ 10/12/15 18:00 02/25/16 05:41 (Proamatine) 2.5 mg BID G-TUBE 11/15/15 21:00 02/25/16 21:39 (Brethine Inj) 1 mg UNSCH PRN SQ 12/06/15 06:45 (Ativan Inj) 1 mg Q3HR PRN IVP 12/15/15 17:00 02/20/16 06:10 (Deltasone) 2.5 mg DAILY PO 12/23/15 09:00 02/25/16 08:26 (Free Water) 200 ml Q6HR G-TUBE 01/03/16 18:00 02/26/16 11:17 (KCl 40 Meq/30 ml Liq) 20 meq DAILY GT 01/08/16 17:00 02/25/16 08:24 (Urecholine) 10 mg Q8HR PO 01/13/16 22:00 02/26/16 11:16 (Sinemet 25-100 Mg) 1.5 tab QID GT 01/14/16 21:00 02/26/16 11:17 (ZyPREXA) 2.5 mg Q48H GT 01/21/16 21:00 02/24/16 23:09 (Peridex 0.12% Liq) 15 ml BID@08,20 MT 02/04/16 10:20 02/26/16 11:15 (Diflucan) 100 mg DAILY PO 02/25/16 09:00 02/28/16 08:59 02/25/16 08:25 (Polytrim Opht Soln) 1 drop Q6HR LEFT EYE 02/25/16 18:00 02/26/16 06:00 A/P Problem List: (1) Sepsis due to urinary tract infection ICD Code: A41.9 Status: Resolved (2) Acute respiratory failure ICD Code: J96.00 Status: Acute (3) Chronic respiratory failure ICD Code: J96.10 Status: Chronic (4) Parkinson disease ICD Code: G20 Status: Chronic (5) UTI (urinary tract infection) ICD Code: N39.0 Status: Acute (6) Encephalopathy ICD Code: G93.40 Status: Resolved Assessment and Plan S/P Septic shock Recurrent aspiration pneumonitis. Klebsiella and Pseudomonas.- previously new sputum growing gram negative rods Leukocytosis- afebrile- WBC up to 25,000 (on po prednisone tapered down to 2.5 mg daily) Candiduria- repeat C and s pending (specimen sent [facility]- changed ) - S/P Zosyn. S/P Vancomycin and Levaquin course. CXR unchanged. - Tobramycin nebulization d/c 02/11/16. - ID reconsulted for UTI. Continue fluconazole. Chronic respiratory failure Chronic tracheostomy. Tolerated T piece. S/P recurrent right pneumothorax status post pigtail catheter removal. CXR stable. Currently on 28% oxygen . - pulmonology ff. continue Bipap at night. - Suction secretions and Levsin as needed - on po steroids- Prednisone 2.5 mg po daily - Duo nebs 4 times a day and when necessary. S/p colistin nebs and Solumedrol. Metabolic Encephalopathy Parkinson's disease underlying. neuro consulted . CT head 06/18/15: - diffuse atrophy unchanged. No acute intracranial findings. The pt continues to become more alert. - Continue cognitive efforts and pain meds. - Parkinson's medication increased by neurology. D/c Zyprexa 02/25. - continue to wean clonazepam. Changed to q 48 hours 02/13. D/c 02/23. Malnutrition/protein calorie - moderate Status post PEG. Concern for hematemesis 12/05. GI evaluated pt. Gastroccult was negative and hemoglobin has been stable. J tube not functioning 02/11. - Current Colace/senna for bowel regimen. - continue PPI.- Prevacid. - IR cleared J tube 02/12/16. Will ask dietary to recommend another tube feed, hoping it will be less prone to clogging the tube than the current tube feed. Flushes between meds were recommended. The pt will remain on the same TFs. Bilateral lower extremity Contractures Stage II DU. - Wound care team following. - Continue physical therapy. - turn q 2 hours. Conjunctivitis Left eye with drainage and erythema. - start Polytrim eye drops 02/24. D/c 03/02. GI prophylaxis: PPI. Stool softener PRN constipation. DVT PPx: Lovenox Discharge Planning Awaiting clinical improvement. Problem Qualifiers (1) Chronic respiratory failure: Qualified Code: J96.10 - Chronic respiratory failure, unspecified whether with hypoxia or hypercapnia Salazar Santa DO Feb 26, 2016 13:19
--- NOTE | 2016-02-26 17:53 | HHI.PR ---
Subjective Remarks Awake , and 0n a T bar FIO2 30 % .On Bipap at HS. J tube is clogged..O2 Sat 97. Responds weakly. Objective Vital Signs Date Time Temp Pulse Resp B/P Pulse Ox O2 Delivery O2 Flow Rate FiO2 02/26/16 17:16 97.5 73 18 125/79 98 02/26/16 12:47 98.6 90 18 113/72 97 02/26/16 08:28 97.0 90 18 107/66 60 02/26/16 08:10 98 T-piece 28 02/26/16 05:58 99 30 02/26/16 05:58 99 BiPAP 30 02/26/16 04:00 97.3 56 20 113/75 99 02/26/16 00:00 97.4 64 22 138/89 97 02/25/16 20:21 99 30 02/25/16 20:00 97.9 84 24 140/90 99 02/25/16 19:05 96.1 82 18 125/76 99 I/O 02/25/16 02/25/16 02/25/16 02/26/16 02/26/16 02/26/16 07:00 15:00 23:00 07:00 15:00 23:00 Intake Total 0 ml Output Total 300 ml 1000 ml 125 ml Balance -300 ml -1000 ml -125 ml Intake Oral 0 ml Output Urine Total 300 ml 1000 ml 125 ml # Bowel Movements 0 Objective Remarks This is a thin white male who is , awake with a trach tube in place. HEENT: Pupils are equal and reactive to light. CHEST:Decreased breath sounds,with Occ wheezes. CARDIOVASCULAR: S1 and S2 is normal.No murmur. ABDOMEN: Soft, nondistended. BS +. He has a PEG and J tube in place. EXTREMITIES: Contractures.muscle wasting. NEURO: Awake and has weak extremities. Skin is warm. Assessment and Plan Assessment and Plan IMPRESSION 1. Chronic Respiratory failure. 2. Sepsis, Aspiration. 3. Left basal Pneumonia, Resolved 4. Tracheobronchitis 5. Parkinson's disease 6. Dementia. 7. Severe Deconditioning. Plan : 1. Continue on Bipap 5/15, FIo2 30 % at 10 pm to 7 am. 2. Nebs Bid , duoneb. 3. Start PEG tube feeds Jevity at 20 CC 4. T Bar 35 % daytime. 5. CBC,BMP in am 6. Cont Trach toilet and lavage. 7. Postural drainage tid 1 Darren Kiser MD Feb 26, 2016 17:53
--- NOTE | 2016-02-26 19:43 | PD.RAD ---
Post Procedure Progress Note Pre Procedure Diagnosis: (1) Feeding tube obstruction Post Procedure Diagnosis: (1) Feeding tube obstruction Procedure Date: Feb 26, 2016 Supervising Radiologist: Scott Goode Proceduralist/Assist: Radha Abrams, RT(R)(), Shantel Miller RT(R)() Plan of Activity Patient to Unit: Nursing Unit Patient Condition: Fair See PACS Report for procedural detail/treatment Feeding Tube Gastro/Jejunostomy (Transgastric J) Replacement Slovak: 22 Findings: Extensively packed with desiccated feeds Scott Goode MD Feb 26, 2016 19:42
[2016-02-26] MEDS ORDERED: IOHEXOL 350 MG/ML 50 ML BTL (for RAD DIAG) G-TUBE ONE (20:08)
[2016-02-26] MEDS: ENOXAPARIN SODIUM 40 MG/0.4 ML SYRINGE SQ SCH (21:27)
[2016-02-27] VITALS (10 sets, daily range): BP systolic 87–135; BP diastolic 56–78; PULSE 70–87; RESP 17–21; TEMP 97.4–98.9; O2SAT 92–98
[2016-02-27] MEDS: ACETAMINOPHEN/HYDROcodone 325 MG/5 MG TAB PO PRN (02:07)
[2016-02-27] MEDS: LORazepam 2 MG/ML VIAL IVP PRN (02:31)
[2016-02-27] MEDS: MORPHINE SULFATE 4 MG/ML INJ IV PUSH PRN (02:32)
[2016-02-27] MEDS: POLYMYXIN/TRIMETHOPRIM OPHT SOLN 10 ML BTL LEFT EYE SCH ×5 (06:00→23:57)
[2016-02-27] MEDS: FREE WATER G-TUBE SCH ×4 (06:00→23:57)
[2016-02-27] MEDS: INSULIN NovoLIN REGULAR SUPPLEMENTAL SCALE SQ SCH ×6 (06:00→23:57)
[2016-02-27] MEDS: BETHANECHOL CHL 10 MG TAB PO SCH ×3 (06:00→21:37)
[2016-02-27] MEDS: LANSOPRAZOLE SOLUTAB 30 MG TAB NG SCH (08:23)
[2016-02-27] MEDS: predniSONE 5 MG TAB PO SCH (08:23)
[2016-02-27] MEDS: PARoxetine HCL 20 MG TAB G-TUBE SCH (08:23)
[2016-02-27] MEDS: LACTOBACILLUS ACIDOPHILUS TAB PO SCH ×3 (08:23→16:09)
[2016-02-27] MEDS: CARBIDOPA/LEVODOPA 25 MG/100 MG TAB GT SCH ×4 (08:23→21:37)
[2016-02-27] MEDS: FLUCONAZOLE 100 MG TAB PO SCH (08:23)
[2016-02-27] MEDS: GABAPENTIN 300 MG CAP G-TUBE SCH ×2 (08:23→21:37)
[2016-02-27] MEDS: SODIUM CHLORIDE 0.9% FLUSH 5 ML FLUSH IVF SCH ×2 (08:24→21:37)
[2016-02-27] MEDS: POTASSIUM CL 40 MEQ/30 ML LIQ UDC GT SCH (08:24)
[2016-02-27] MEDS: CHLORHEXIDINE GLUCONATE 0.12% 30 ML CUP MT SCH ×2 (08:25→21:37)
[2016-02-27] MEDS: COLLAGENASE OINT 30 GM TUBE TOP SCH (08:25)
[2016-02-27] MEDS: ARTIFICIAL TEARS OPTH SOLN 15 ML BTL EACH EYE SCH ×3 (08:25→16:09)
--- NOTE | 2016-02-27 14:44 | HHI.PR ---
Subjective Remarks The patient was resting comfortably. Discussed with nursing. No acute concerns at this time. Objective Vitals Vital Signs Date Time Temp Pulse Resp B/P Pulse Ox O2 Delivery O2 Flow Rate FiO2 02/27/16 12:11 97.5 82 17 130/78 97 02/27/16 11:43 96 T-piece 28 02/27/16 08:00 98.0 80 20 135/67 96 02/27/16 04:08 98 30 02/27/16 04:00 97.7 70 20 87/56 95 02/27/16 00:35 96 30 02/27/16 00:00 98.1 87 20 99/63 97 02/26/16 20:13 98 BiPAP 30 02/26/16 20:11 97 30 02/26/16 20:00 98.5 78 20 109/62 97 02/26/16 20:00 98.5 78 20 109/62 97 02/26/16 18:29 T-Piece 6.00 40 02/26/16 17:16 97.5 73 18 125/79 98 I/O 02/26/16 02/26/16 02/26/16 02/27/16 02/27/16 02/27/16 07:00 15:00 23:00 07:00 15:00 23:00 Intake Total 0 ml Output Total 1000 ml 525 ml 500 ml Balance -1000 ml -525 ml -500 ml Intake Oral 0 ml Output Urine Total 1000 ml 525 ml 500 ml # Bowel Movements 1 Imaging Last Impressions Chest X-Ray 02/23/16 0000 Signed Impressions: Service Date/Time: Tuesday, February 23, 2016 14:25 - CONCLUSION: No acute disease. Cecil Galarza MD Tube Change 02/03/16 0000 Signed Impressions: Service Date/Time: Wednesday, February 03, 2016 17:13 - CONCLUSION: Uncomplicated gastrojejunostomy tube exchange as above. This is a recurrent occlusion with this tube. We will institute Q8 hour flushing of the tube with warm water. Tai Taylor Jr., MD Gastrostomy Tube Change 01/15/16 0000 Signed Impressions: Service Date/Time: Friday, January 15, 2016 12:28 - CONCLUSION: Successful GJ tube exchange as above. Scott Goode MD Abdomen X-Ray 01/12/16 [id number] Signed Impressions: Service Date/Time: Tuesday, January 12, 2016 17:35 - CONCLUSION: No evidence of obstruction or free air. Reyes Jewell MD Abdomen Ultrasound 12/06/15 0000 Signed Impressions: Service Date/Time: Sunday, December 06, 2015 17:42 - CONCLUSION: 1. The gallbladder is unremarkable with no evidence of cholelithiasis. 2. Simple cyst in the left kidney. 3. Mild pyelocaliectasis in the right kidney. Salazar Thurman MD Upper Extremity Ultrasound 10/13/15 0000 Signed Impressions: Service Date/Time: Tuesday, October 13, 2015 09:51 - CONCLUSION: 1. No evidence of deep venous thrombosis. John Anderson MD Renal Ultrasound 10/07/15 0000 Signed Impressions: Service Date/Time: Wednesday, October 07, 2015 18:29 - CONCLUSION: 1. No acute findings. 3.6 cm left renal cyst. Valdez catheter in bladder. Amaury Ellsworth MD Tunnelled Chest Tube Removal 08/05/15 1100 Signed Impressions: Service Date/Time: Wednesday, August 05, 2015 11:00 - CONCLUSION: Uncomplicated chest tube removal. Blaine Jackson MD Chest Tube Change 07/31/15 0000 Signed Impressions: Service Date/Time: Friday, July 31, 2015 14:34 - CONCLUSION: Uncomplicated reposition of previously placed chest tube as above. Blaine Jackson MD Chest Tube Insertion 07/30/15 0000 Signed Impressions: Service Date/Time: July 14:50 - CONCLUSION: Uncomplicated chest tube placement as above. Blaine Jackson MD Catheter Change 07/27/15 0000 Signed Impressions: Service Date/Time: Monday, July 27, 2015 14:43 - CONCLUSION: Uncomplicated gastrostomy tube exchange as above. Blaine Jackson MD Chest CT 07/11/15 0000 Signed Impressions: Service Date/Time: Saturday, July 11, 2015 09:49 - CONCLUSION: Scattered patchy densities significantly improved from previous study. Tiny anterior right basilar pneumothorax. Right-sided chest tube in good position. Néstor Matamoros MD Head CT 06/18/15 [id number] Signed Impressions: Service Date/Time: June 19:31 - CONCLUSION: Diffuse atrophy unchanged. No acute intracranial findings. Kush Briscoe MD Abdomen/Pelvis CT 06/18/15 1905 Signed Impressions: Service Date/Time: June 19:36 - CONCLUSION: 1. Chronic nonspecific urinary bladder wall thickening. Bladder collapsed with Valdez catheter in place. 2. Chronic bilateral mid to lower lung zone groundglass opacity. 3. Nonobstructing left renal calculus. 4. Distended rectum. Kush Briscoe MD Objective Remarks GENERAL: Cachectic patient with limbs contracted. Eyes open. SKIN: Warm and dry. HEAD: Normocephalic. EYES: Left erythematous and with drainage. NECK: 8.0 Distal XLT trach in place CARDIOVASCULAR: Regular rate and rhythm without murmurs, gallops, or rubs. RESPIRATORY: coarse breath sounds. GASTROINTESTINAL: Abdomen soft, non-tender, nondistended. MUSCULOSKELETAL: Contracted limbs. Wound on lower back currently bandaged. Procedures 07/26- PEG replacement 07/29- right pigtail catheter placement for new pneumothorax Medications and IVs Current Medications Medications (Trade) Dose Ordered Sig/Jassi Route Start Time Stop Time Status Last Admin (NS Flush) 2 ml UNSCH PRN IVF 06/18/15 21:30 02/01/16 03:04 (NS Flush) 2 ml BID IVF 06/19/15 09:00 02/27/16 08:24 (Tylenol 650 Mg/ 20 ml Liq) 650 mg Q6H PRN TUBE 06/18/15 21:30 02/23/16 02:55 (Tears Naturale Opth Soln) 1 drop TID EACH EYE 06/19/15 09:00 02/27/16 12:18 (Zofran Inj) 4 mg Q6H PRN IV 06/18/15 21:30 11/26/15 11:54 (Neurontin) 300 mg BID G-TUBE 06/19/15 09:00 02/27/16 08:23 (Lactinex) 1 tab TID PO 06/19/15 09:00 02/27/16 12:18 (Paxil) 20 mg DAILY G-TUBE 06/19/15 09:00 02/27/16 08:23 (Pill Splitter) 1 ea UNSCH PRN OTHER 06/19/15 03:30 06/28/15 09:35 (Prevacid Odt) 30 mg DAILY NG 07/08/15 09:00 02/27/16 08:23 (Morphine Inj) 2 mg Q3H PRN IV PUSH 07/28/15 00:45 02/27/16 02:32 (Lovenox Inj) 40 mg Q24H SQ 08/09/15 22:00 02/26/16 21:27 ([place] 5-325 Mg) 1 tab Q6H PRN PO 08/15/15 15:45 02/27/16 02:07 (Sublimaze Inj) 50 mcg Q2H PRN IV PUSH 08/15/15 15:45 01/15/16 13:10 (Santyl Oint) 1 applic DAILY TOP 08/21/15 09:00 02/27/16 08:25 (Levsin Liq) 0.125 mg Q4H PRN PO 09/06/15 11:00 02/19/16 06:30 (D50w (Vial) Inj) 25 ml UNSCH PRN IV PUSH 10/12/15 17:30 01/06/16 20:14 (Glucagon Inj) 1 mg UNSCH PRN OTHER 10/12/15 17:30 (NovoLIN R SUPPLEMENTAL SCALE) 1 Q6H SQ 10/12/15 18:00 02/25/16 05:41 (Brethine Inj) 1 mg UNSCH PRN SQ 12/06/15 06:45 (Ativan Inj) 1 mg Q3HR PRN IVP 12/15/15 17:00 02/27/16 02:31 (Deltasone) 2.5 mg DAILY PO 12/23/15 09:00 02/27/16 08:23 (Free Water) 200 ml Q6HR G-TUBE 01/03/16 18:00 02/27/16 11:52 (KCl 40 Meq/30 ml Liq) 20 meq DAILY GT 01/08/16 17:00 02/27/16 08:24 (Urecholine) 10 mg Q8HR PO 01/13/16 22:00 02/27/16 12:18 (Sinemet 25-100 Mg) 1.5 tab QID GT 01/14/16 21:00 02/27/16 12:17 (Peridex 0.12% Liq) 15 ml BID@08,20 MT 02/04/16 10:20 02/27/16 08:25 (Diflucan) 100 mg DAILY PO 02/25/16 09:00 02/28/16 08:59 02/27/16 08:23 (Polytrim Opht Soln) 1 drop Q6HR LEFT EYE 02/25/16 18:00 03/03/16 07:00 02/27/16 12:00 A/P Problem List: (1) Sepsis due to urinary tract infection ICD Code: A41.9 Status: Resolved (2) Acute respiratory failure ICD Code: J96.00 Status: Acute (3) Chronic respiratory failure ICD Code: J96.10 Status: Chronic (4) Parkinson disease ICD Code: G20 Status: Chronic (5) UTI (urinary tract infection) ICD Code: N39.0 Status: Acute (6) Encephalopathy ICD Code: G93.40 Status: Resolved Assessment and Plan S/P Septic shock Recurrent aspiration pneumonitis. Klebsiella and Pseudomonas.- previously new sputum growing gram negative rods Leukocytosis- afebrile- WBC up to 25,000 (on po prednisone tapered down to 2.5 mg daily) Candiduria- repeat C and s pending (specimen sent from [facility]- changed ) - S/P Zosyn. S/P Vancomycin and Levaquin course. CXR unchanged. - Tobramycin nebulization d/c 02/11/16. - ID reconsulted for UTI. Continue fluconazole. Chronic respiratory failure Chronic tracheostomy. Tolerated T piece. S/P recurrent right pneumothorax status post pigtail catheter removal. CXR stable. Currently on 28% oxygen . - pulmonology ff. continue Bipap at night. - Suction secretions and Levsin as needed - on po steroids- Prednisone 2.5 mg po daily - Duo nebs 4 times a day and when necessary. S/p colistin nebs and Solumedrol. Metabolic Encephalopathy Parkinson's disease underlying. neuro consulted . CT head 06/18/15: - diffuse atrophy unchanged. No acute intracranial findings. The pt continues to become more alert. - Continue cognitive efforts and pain meds. - Parkinson's medication increased by neurology. D/c Zyprexa 02/25. - continue to wean clonazepam. Changed to q 48 hours 02/13. D/c 02/23. Malnutrition/protein calorie - moderate Status post PEG. Concern for hematemesis 12/05. GI evaluated pt. Gastroccult was negative and hemoglobin has been stable. J tube not functioning 02/25. Replaced by IR. - Current Colace/senna for bowel regimen. - continue PPI.- Prevacid. - continue tube feeds. Bilateral lower extremity Contractures Stage II DU. - Wound care team following. - Continue physical therapy. - turn q 2 hours. Conjunctivitis Left eye with drainage and erythema. - start Polytrim eye drops 02/24. D/c 03/02. GI prophylaxis: PPI. Stool softener PRN constipation. DVT PPx: Lovenox Discharge Planning Awaiting clinical improvement. Problem Qualifiers (1) Chronic respiratory failure: Qualified Code: J96.10 - Chronic respiratory failure, unspecified whether with hypoxia or hypercapnia Salazar Santa DO Feb 27, 2016 14:44
--- NOTE | 2016-02-27 18:09 | RADRPT ---
EXAM DATE/TIME: 02/26/2016 18:49 [facility] COMPARISON: CHANGE OF GJ-TUBE CATHETER, February 03, 2016, 17:13. INDICATIONS : Patient with a history of encephalopathy, clogged GJ tube, needs nutrition MEDICAL HISTORY : HTN, Diabetes, HLD, CAD, MRSA, C-Diff, Parkinsons disease, Pneumonia, GERD, Dementia, Aspiration pneu monia, DVT SURGICAL HISTORY : Trach, Left hip fx, PEG tube placement, CABG ENCOUNTER: Subsequent ACUITY: 7 - 11 months PAIN SCORE: 0/10 FLUORO TIME: 7.37 minutes CONTRAST: 20 cc Omnipaque (iohexol) 350 DEVICE(S): 1.) 22 Frisian Transgastric tube PROCEDURE : 1. Fluoroscopically guided gastrojejunostomy tube exchange. The risks, benefits and alternatives to the procedure were explained and verbal and written consent w as obtained. The site was prepped in sterile fashion. Full sterile technique was used, including ca p, mask, sterile gloves and gown and a large sterile sheet. Hand hygiene and 2% chlorhexidine and/or betadine/alcohol prep was utilized per protocol for cutaneous antisepsis. The skin and subcutaneous tissues were infiltrated with local anesthetic solution. With fluoroscopic guidance, extended to pass a wire through the existing J. port. However, the cathet er was extensively blocked by desiccated feeds. The catheter had to be partially withdrawn and excise d and I still had tremendous difficulty passing a wire to the tip. The catheter was eventually remove d again demonstrating extensive desiccated feeds throughout the jejunal lumen. A new catheter was adv anced over a stiff glide wire which was guided back down into the jejunal region with a hockey-stick catheter. The balloon was inflated with appropriate volume of saline. Injection of positive contras t demonstrates good position of the gastric and jejunal lumens of the tube. EKG and oximetry remained stable throughout the procedure. The patient was sent to post anesthesia re covery in stable condition. CONCLUSION: Uncomplicated gastrojejunostomy tube exchange as above. Scott Goode MD on February 27, 2016 at 18:04 Board Certified Radiologist. This report was verified electronically.
[2016-02-27] MEDS: ENOXAPARIN SODIUM 40 MG/0.4 ML SYRINGE SQ SCH (21:37)
[2016-02-28] VITALS (8 sets, daily range): BP systolic 109–136; BP diastolic 58–110; PULSE 96–105; RESP 27–33; TEMP 96.6–98.6; O2SAT 92–99
[2016-02-28] MEDS: BETHANECHOL CHL 10 MG TAB PO SCH ×3 (05:18→20:53)
[2016-02-28] MEDS: FREE WATER G-TUBE SCH ×3 (05:20→16:15)
[2016-02-28] MEDS: INSULIN NovoLIN REGULAR SUPPLEMENTAL SCALE SQ SCH ×3 (05:20→16:16)
[2016-02-28] MEDS: POLYMYXIN/TRIMETHOPRIM OPHT SOLN 10 ML BTL LEFT EYE SCH ×3 (05:20→16:22)
[2016-02-28] MEDS: POTASSIUM CL 40 MEQ/30 ML LIQ UDC GT SCH (07:34)
[2016-02-28] MEDS: ACETAMINOPHEN/HYDROcodone 325 MG/5 MG TAB PO PRN ×2 (07:35→20:51)
[2016-02-28] MEDS: LACTOBACILLUS ACIDOPHILUS TAB PO SCH ×3 (07:36→16:15)
[2016-02-28] MEDS: SODIUM CHLORIDE 0.9% FLUSH 5 ML FLUSH IVF SCH ×2 (07:36→21:00)
[2016-02-28] MEDS: PARoxetine HCL 20 MG TAB G-TUBE SCH (07:36)
[2016-02-28] MEDS: CARBIDOPA/LEVODOPA 25 MG/100 MG TAB GT SCH ×4 (07:36→20:52)
[2016-02-28] MEDS: GABAPENTIN 300 MG CAP G-TUBE SCH ×2 (07:36→20:52)
[2016-02-28] MEDS: LANSOPRAZOLE SOLUTAB 30 MG TAB NG SCH (07:36)
[2016-02-28] MEDS: predniSONE 5 MG TAB PO SCH (07:37)
[2016-02-28] MEDS: COLLAGENASE OINT 30 GM TUBE TOP SCH (07:37)
[2016-02-28] MEDS: CHLORHEXIDINE GLUCONATE 0.12% 30 ML CUP MT SCH ×2 (07:37→20:52)
[2016-02-28] MEDS: ARTIFICIAL TEARS OPTH SOLN 15 ML BTL EACH EYE SCH ×3 (07:37→16:15)
--- NOTE | 2016-02-28 10:12 | HHI.PR ---
Subjective Remarks The patient was staring up at the ceiling. He did not appear to be in any distress. Objective Vitals Vital Signs Date Time Temp Pulse Resp B/P Pulse Ox O2 Delivery O2 Flow Rate FiO2 02/28/16 08:00 98.6 101 28 136/110 97 02/28/16 04:29 96 30 02/28/16 04:00 97.8 97 33 109/78 99 02/28/16 00:15 96.8 96 27 127/58 95 02/27/16 23:33 96 30 02/27/16 21:40 T-Piece 02/27/16 21:24 98.9 81 21 120/60 92 02/27/16 16:21 97.4 76 18 120/67 97 02/27/16 12:11 97.5 82 17 130/78 97 02/27/16 11:43 96 T-piece 28 I/O 02/27/16 02/27/16 02/27/16 02/28/16 02/28/16 02/28/16 07:00 15:00 23:00 07:00 15:00 23:00 Output Total 500 ml 600 ml Balance -500 ml -600 ml Output Urine Total 500 ml 600 ml # Bowel Movements 1 1 1 Imaging Last Impressions Tube Change 02/26/16 0000 Signed Impressions: Service Date/Time: Friday, February 26, 2016 18:49 - CONCLUSION: Uncomplicated gastrojejunostomy tube exchange as above. Scott Goode MD Chest X-Ray 02/23/16 0000 Signed Impressions: Service Date/Time: Tuesday, February 23, 2016 14:25 - CONCLUSION: No acute disease. Cecil Galarza MD Gastrostomy Tube Change 01/15/16 0000 Signed Impressions: Service Date/Time: Friday, January 15, 2016 12:28 - CONCLUSION: Successful GJ tube exchange as above. Scott Goode MD Abdomen X-Ray 01/12/16 1628 Signed Impressions: Service Date/Time: Tuesday, January 12, 2016 17:35 - CONCLUSION: No evidence of obstruction or free air. Reyes Jewell MD Abdomen Ultrasound 12/06/15 0000 Signed Impressions: Service Date/Time: Sunday, December 06, 2015 17:42 - CONCLUSION: 1. The gallbladder is unremarkable with no evidence of cholelithiasis. 2. Simple cyst in the left kidney. 3. Mild pyelocaliectasis in the right kidney. Salazar Thurman MD Upper Extremity Ultrasound 10/13/15 0000 Signed Impressions: Service Date/Time: Tuesday, October 13, 2015 09:51 - CONCLUSION: 1. No evidence of deep venous thrombosis. John Anderson MD Renal Ultrasound 10/07/15 0000 Signed Impressions: Service Date/Time: Wednesday, October 07, 2015 18:29 - CONCLUSION: 1. No acute findings. 3.6 cm left renal cyst. Valdez catheter in bladder. Amaury Ellsworth MD Tunnelled Chest Tube Removal 08/05/15 1100 Signed Impressions: Service Date/Time: Wednesday, August 05, 2015 11:00 - CONCLUSION: Uncomplicated chest tube removal. Blaine Jackson MD Chest Tube Change 07/31/15 0000 Signed Impressions: Service Date/Time: Friday, July 31, 2015 14:34 - CONCLUSION: Uncomplicated reposition of previously placed chest tube as above. Blaine Jackson MD Chest Tube Insertion 07/30/15 0000 Signed Impressions: Service Date/Time: July 14:50 - CONCLUSION: Uncomplicated chest tube placement as above. Blaine Jackson MD Catheter Change 07/27/15 0000 Signed Impressions: Service Date/Time: Monday, July 27, 2015 14:43 - CONCLUSION: Uncomplicated gastrostomy tube exchange as above. Blaine Jackson MD Chest CT 07/11/15 0000 Signed Impressions: Service Date/Time: Saturday, July 11, 2015 09:49 - CONCLUSION: Scattered patchy densities significantly improved from previous study. Tiny anterior right basilar pneumothorax. Right-sided chest tube in good position. Néstor Matamoros MD Head CT 06/18/[id number] Signed Impressions: Service Date/Time: June 19:31 - CONCLUSION: Diffuse atrophy unchanged. No acute intracranial findings. Kush Briscoe MD Abdomen/Pelvis CT 06/18/[id number] Signed Impressions: Service Date/Time: June 19:36 - CONCLUSION: 1. Chronic nonspecific urinary bladder wall thickening. Bladder collapsed with Valdez catheter in place. 2. Chronic bilateral mid to lower lung zone groundglass opacity. 3. Nonobstructing left renal calculus. 4. Distended rectum. Kush Briscoe MD Objective Remarks GENERAL: Cachectic patient with limbs contracted. Eyes open. SKIN: Warm and dry. HEAD: Normocephalic. EYES: Left erythematous and with drainage. NECK: 8.0 Distal XLT trach in place CARDIOVASCULAR: Tachycardic without murmurs, gallops, or rubs. RESPIRATORY: Coarse breath sounds. GASTROINTESTINAL: Abdomen soft, non-tender, nondistended. MUSCULOSKELETAL: Contracted limbs. Wound on lower back currently bandaged. NEURO: Eyes are open, not tracking. Procedures 07/26- PEG replacement 07/29- right pigtail catheter placement for new pneumothorax Medications and IVs Current Medications Medications (Trade) Dose Ordered Sig/Jassi Route Start Time Stop Time Status Last Admin (NS Flush) 2 ml UNSCH PRN IVF 06/18/15 21:30 02/01/16 03:04 (NS Flush) 2 ml BID IVF 06/19/15 09:00 02/27/16 21:37 (Tylenol 650 Mg/ 20 ml Liq) 650 mg Q6H PRN TUBE 06/18/15 21:30 02/23/16 02:55 (Tears Naturale Opth Soln) 1 drop TID EACH EYE 06/19/15 09:00 02/27/16 16:09 (Zofran Inj) 4 mg Q6H PRN IV 06/18/15 21:30 11/26/15 11:54 (Neurontin) 300 mg BID G-TUBE 06/19/15 09:00 02/28/16 07:36 (Lactinex) 1 tab TID PO 06/19/15 09:00 02/28/16 07:36 (Paxil) 20 mg DAILY G-TUBE 06/19/15 09:00 02/28/16 07:36 (Pill Splitter) 1 ea UNSCH PRN OTHER 06/19/15 03:30 06/28/15 09:35 (Prevacid Odt) 30 mg DAILY NG 07/08/15 09:00 02/28/16 07:36 (Morphine Inj) 2 mg Q3H PRN IV PUSH 07/28/15 00:45 02/27/16 02:32 (Lovenox Inj) 40 mg Q24H SQ 08/09/15 22:00 02/27/16 21:37 ([place] 5-325 Mg) 1 tab Q6H PRN PO 08/15/15 15:45 02/28/16 07:35 (Sublimaze Inj) 50 mcg Q2H PRN IV PUSH 08/15/15 15:45 01/15/16 13:10 (Santyl Oint) 1 applic DAILY TOP 08/21/15 09:00 02/28/16 07:37 (Levsin Liq) 0.125 mg Q4H PRN PO 09/06/15 11:00 02/19/16 06:30 (D50w (Vial) Inj) 25 ml UNSCH PRN IV PUSH 10/12/15 17:30 01/06/16 20:14 (Glucagon Inj) 1 mg UNSCH PRN OTHER 10/12/15 17:30 (NovoLIN R SUPPLEMENTAL SCALE) 1 Q6H SQ 10/12/15 18:00 02/25/16 05:41 (Brethine Inj) 1 mg UNSCH PRN SQ 12/06/15 06:45 (Ativan Inj) 1 mg Q3HR PRN IVP 12/15/15 17:00 02/27/16 02:31 (Deltasone) 2.5 mg DAILY PO 12/23/15 09:00 02/28/16 07:37 (Free Water) 200 ml Q6HR G-TUBE 01/03/16 18:00 02/28/16 05:20 (KCl 40 Meq/30 ml Liq) 20 meq DAILY GT 01/08/16 17:00 02/28/16 07:34 (Urecholine) 10 mg Q8HR PO 01/13/16 22:00 02/28/16 05:18 (Sinemet 25-100 Mg) 1.5 tab QID GT 01/14/16 21:00 02/28/16 07:36 (Peridex 0.12% Liq) 15 ml BID@08,20 MT 02/04/16 10:20 02/28/16 07:37 (Polytrim Opht Soln) 1 drop Q6HR LEFT EYE 02/25/16 18:00 03/03/16 07:00 02/28/16 05:20 A/P Problem List: (1) Sepsis due to urinary tract infection ICD Code: A41.9 Status: Resolved (2) Acute respiratory failure ICD Code: J96.00 Status: Acute (3) Chronic respiratory failure ICD Code: J96.10 Status: Chronic (4) Parkinson disease ICD Code: G20 Status: Chronic (5) UTI (urinary tract infection) ICD Code: N39.0 Status: Acute (6) Encephalopathy ICD Code: G93.40 Status: Resolved Assessment and Plan S/P Septic shock Recurrent aspiration pneumonitis. Klebsiella and Pseudomonas.- previously new sputum growing gram negative rods Leukocytosis- afebrile- WBC up to 25,000 (on po prednisone tapered down to 2.5 mg daily) Candiduria- repeat C and s pending (specimen sent from [facility]- changed 01/25 ) - S/P Zosyn. S/P Vancomycin and Levaquin course. CXR unchanged. - Tobramycin nebulization d/c 02/11/16. - ID reconsulted for UTI. DC fluconazole 02/27/16. Chronic respiratory failure Chronic tracheostomy. Tolerated T piece. S/P recurrent right pneumothorax status post pigtail catheter removal. CXR stable. Currently on 30% oxygen . - pulmonology ff. continue Bipap at night. - Suction secretions and Levsin as needed - on po steroids- Prednisone 2.5 mg po daily - Duo nebs 4 times a day and when necessary. S/p colistin nebs and Solumedrol. Metabolic Encephalopathy Parkinson's disease underlying. neuro consulted . CT head 06/18/15: - diffuse atrophy unchanged. No acute intracranial findings. The pt continues to become more alert. - Continue cognitive efforts and pain meds. - Parkinson's medication increased by neurology. D/c Zyprexa 02/25. - continue to wean clonazepam. Changed to q 48 hours 02/13. D/c 02/23. Malnutrition/protein calorie - moderate Status post PEG. Concern for hematemesis 12/05. GI evaluated pt. Gastroccult was negative and hemoglobin has been stable. J tube not functioning 02/25. Replaced by IR. - Current Colace/senna for bowel regimen. - continue PPI.- Prevacid. - continue tube feeds. Tolerating 02/27. Bilateral lower extremity Contractures Stage II DU. - Wound care team following. - Continue physical therapy. - turn q 2 hours. Conjunctivitis Left eye with drainage and erythema. - start Polytrim eye drops 02/24. D/c 03/02. GI prophylaxis: PPI. Stool softener PRN constipation. DVT PPx: Lovenox Discharge Planning Awaiting clinical improvement. Problem Qualifiers (1) Chronic respiratory failure: Qualified Code: J96.10 - Chronic respiratory failure, unspecified whether with hypoxia or hypercapnia Salazar Santa DO Feb 28, 2016 10:11
[2016-02-28] MEDS: ENOXAPARIN SODIUM 40 MG/0.4 ML SYRINGE SQ SCH (20:52)
[2016-02-28] MEDS: ACETAMINOPHEN 650 MG/20.3 ML UDC TUBE PRN (20:53)
[2016-02-29] VITALS (9 sets, daily range): BP systolic 108–126; BP diastolic 51–76; PULSE 88–108; RESP 22–40; TEMP 95.7–102.3; O2SAT 92–99
[2016-02-29] MEDS: ACETAMINOPHEN/HYDROcodone 325 MG/5 MG TAB PO PRN (03:23)
[2016-02-29] MEDS: ACETAMINOPHEN 650 MG/20.3 ML UDC TUBE PRN (03:23)
[2016-02-29] MEDS: BETHANECHOL CHL 10 MG TAB PO SCH ×3 (04:58→21:29)
[2016-02-29] MEDS: INSULIN NovoLIN REGULAR SUPPLEMENTAL SCALE SQ SCH ×4 (04:58→16:59)
[2016-02-29] MEDS: POLYMYXIN/TRIMETHOPRIM OPHT SOLN 10 ML BTL LEFT EYE SCH ×4 (04:58→16:58)
[2016-02-29] MEDS: FREE WATER G-TUBE SCH ×4 (04:58→16:58)
[2016-02-29] MEDS: CHLORHEXIDINE GLUCONATE 0.12% 30 ML CUP MT SCH ×2 (08:00→21:29)
[2016-02-29] MEDS: COLLAGENASE OINT 30 GM TUBE TOP SCH (09:00)
[2016-02-29] MEDS: SODIUM CHLORIDE 0.9% FLUSH 5 ML FLUSH IVF SCH ×2 (09:00→21:29)
[2016-02-29] MEDS: ARTIFICIAL TEARS OPTH SOLN 15 ML BTL EACH EYE SCH ×3 (09:00→21:28)
--- NOTE | 2016-02-29 09:26 | RADRPT ---
EXAM DATE/TIME: 02/12/2016 16:08 [facility] COMPARISON: CHANGE OF GJ-TUBE CATHETER, February 03, 2016, 17:13. INDICATIONS : Floor nurses having trouble with GJ tube. MEDICAL HISTORY : 1.Parkinson 2. Sepsis 3. UTI 4. Dementia 5. Pnuemonia 6. GERD SURGICAL HISTORY : 1. PEG tube 2. Trach 3. Left hip fx ENCOUNTER: Subsequent ACUITY: > 1 year PAIN SCORE: 0.3 minutes CONTRAST: 20 cc Omnipaque (iohexol) 350 PROCEDURE : 1. Fluoroscopically guided tube injection. 2. Conscious sedation with continuous EKG and oximetry monitoring. The risks, benefits and alternatives to the procedure were explained and verbal and written consent w as obtained. The site was prepped in sterile fashion. Full sterile technique was used, including ca p, mask, sterile gloves and gown and a large sterile sheet. Hand hygiene and 2% chlorhexidine and/or betadine/alcohol prep was utilized per protocol for cutaneous antisepsis. The patient was placed on the fluoroscopy table. The tube was forcefully injected with approximately 10 cc of water. There was immediate clearing of the tube. Contrast was then administered through the tube without difficulty. The tube was in excellent position. The tube functions normally. CONCLUSION: Uncomplicated tube injection as above. Blaine Jackson MD on February 29, 2016 at 9:24 Board Certified Radiologist. This report was verified electronically.
[2016-02-29] MEDS: CARBIDOPA/LEVODOPA 25 MG/100 MG TAB GT SCH ×4 (09:31→21:29)
[2016-02-29] MEDS: predniSONE 5 MG TAB PO SCH (09:31)
[2016-02-29] MEDS: POTASSIUM CL 40 MEQ/30 ML LIQ UDC GT SCH (09:31)
[2016-02-29] MEDS: GABAPENTIN 300 MG CAP G-TUBE SCH ×2 (09:32→21:29)
[2016-02-29] MEDS: LANSOPRAZOLE SOLUTAB 30 MG TAB NG SCH (09:32)
[2016-02-29] MEDS: PARoxetine HCL 20 MG TAB G-TUBE SCH (09:32)
[2016-02-29] MEDS: LACTOBACILLUS ACIDOPHILUS TAB PO SCH ×3 (09:32→16:58)
--- NOTE | 2016-02-29 12:44 | HHI.PR ---
Subjective Remarks Awake , and 0n a T bar FIO2 40 % .On Bipap at HS. O2 Sat 97. Responds weakly. Good output. Objective Vital Signs Date Time Temp Pulse Resp B/P Pulse Ox O2 Delivery O2 Flow Rate FiO2 02/29/16 08:00 101.5 96 24 108/51 94 02/29/16 06:30 101.0 106 40 115/76 92 02/29/16 06:00 93 30 02/29/16 01:11 96 30 02/29/16 00:00 102.3 108 30 110/68 96 02/28/16 20:50 T-Piece 02/28/16 20:48 95 30 02/28/16 16:41 T-Piece 02/28/16 16:00 96.6 102 30 128/82 94 I/O 02/28/16 02/28/16 02/28/16 02/29/16 02/29/16 02/29/16 07:00 15:00 23:00 07:00 15:00 23:00 Output Total 250 ml 250 ml Balance -250 ml -250 ml Output Urine Total 250 ml 250 ml # Bowel Movements 1 1 1 Objective Remarks This is a thin white male who is , awake with a trach tube in place. HEENT: Pupils are equal and reactive to light. CHEST:Decreased breath sounds,with Occ crackles. CARDIOVASCULAR: S1 and S2 is normal.No murmur. ABDOMEN: Soft, nondistended. BS +. He has a PEG and J tube in place. EXTREMITIES: Contractures.muscle wasting. NEURO: Awake and has weak extremities. Skin is warm. Assessment and Plan Assessment and Plan IMPRESSION 1. Chronic Respiratory failure. 2. Sepsis, Aspiration. 3. Left basal Pneumonia, Resolved 4. Tracheobronchitis 5. Parkinson's disease 6. Dementia. 7. Severe Deconditioning. Plan : 1. Continue on Bipap 5/15, FIo2 30 % at 11 pm to 7 am. 2. Nebs Bid , duoneb. 3. Start PEG tube feeds Jevity at 20 CC 4. T Bar 35 % daytime. 5. CXR this week 6. Cont Trach toilet and lavage. 7. Postural drainage tid 1 Darren Kiser MD Feb 29, 2016 12:43
--- NOTE | 2016-02-29 20:04 | HHI.PR ---
Subjective Remarks Patient is nonverbal, as per RN the patient has been having thick secretions. Patient had a high-grade fever 102.3 last night and again the fever 101.5 this a.m., However RN states that the room temperature was very high and the patient 's temperature came down by itself as soon as the thermostat was readjusted. There are no reports of diarrhea Patient was slightly tachycardic Patient currently on T piece with an FiO2 of 30% Objective Vitals Vital Signs Date Time Temp Pulse Resp B/P Pulse Ox O2 Delivery O2 Flow Rate FiO2 02/29/16 16:00 95.7 88 22 116/68 98 02/29/16 12:00 96.1 98 24 126/71 97 02/29/16 08:00 101.5 96 24 108/51 94 02/29/16 07:00 T-Piece 02/29/16 06:30 101.0 106 40 115/76 92 02/29/16 06:00 93 30 02/29/16 01:11 96 30 02/29/16 00:00 102.3 108 30 110/68 96 02/28/16 20:50 T-Piece 02/28/16 20:48 95 30 I/O 02/28/16 02/28/16 02/28/16 02/29/16 02/29/16 02/29/16 07:00 15:00 23:00 07:00 15:00 23:00 Output Total 250 ml 250 ml 175 ml Balance -250 ml -250 ml -175 ml Output Urine Total 250 ml 250 ml 175 ml # Bowel Movements 1 1 1 0 Imaging Last Impressions Tube Change 02/26/16 0000 Signed Impressions: Service Date/Time: Friday, February 26, 2016 18:49 - CONCLUSION: Uncomplicated gastrojejunostomy tube exchange as above. Scott Goode MD Chest X-Ray 02/23/16 0000 Signed Impressions: Service Date/Time: Tuesday, February 23, 2016 14:25 - CONCLUSION: No acute disease. Cecil Galarza MD Tube Check 02/12/16 0000 Signed Impressions: Service Date/Time: Friday, February 12, 2016 16:08 - CONCLUSION: Uncomplicated tube injection as above. Blaine Jackson MD Gastrostomy Tube Change 01/15/16 0000 Signed Impressions: Service Date/Time: Friday, January 15, 2016 12:28 - CONCLUSION: Successful GJ tube exchange as above. Scott Goode MD Abdomen X-Ray 01/12/16 1628 Signed Impressions: Service Date/Time: Tuesday, January 12, 2016 17:35 - CONCLUSION: No evidence of obstruction or free air. Reyes Jewell MD Abdomen Ultrasound 12/06/15 0000 Signed Impressions: Service Date/Time: Sunday, December 06, 2015 17:42 - CONCLUSION: 1. The gallbladder is unremarkable with no evidence of cholelithiasis. 2. Simple cyst in the left kidney. 3. Mild pyelocaliectasis in the right kidney. Salazar Thurman MD Upper Extremity Ultrasound 10/13/15 0000 Signed Impressions: Service Date/Time: Tuesday, October 13, 2015 09:51 - CONCLUSION: 1. No evidence of deep venous thrombosis. John Anderson MD Renal Ultrasound 10/07/15 0000 Signed Impressions: Service Date/Time: Wednesday, October 07, 2015 18:29 - CONCLUSION: 1. No acute findings. 3.6 cm left renal cyst. Putnma catheter in bladder. Amaury Ellsworth MD Tunnelled Chest Tube Removal 08/05/15 1100 Signed Impressions: Service Date/Time: Wednesday, August 05, 2015 11:00 - CONCLUSION: Uncomplicated chest tube removal. Blaine Jackson MD Chest Tube Change 07/31/15 0000 Signed Impressions: Service Date/Time: Friday, July 31, 2015 14:34 - CONCLUSION: Uncomplicated reposition of previously placed chest tube as above. Blaine Jackson MD Chest Tube Insertion 07/30/15 0000 Signed Impressions: Service Date/Time: July 14:50 - CONCLUSION: Uncomplicated chest tube placement as above. Blaine Jackson MD Catheter Change 07/27/15 0000 Signed Impressions: Service Date/Time: Monday, July 27, 2015 14:43 - CONCLUSION: Uncomplicated gastrostomy tube exchange as above. Blaine Jackson MD Chest CT 07/11/15 0000 Signed Impressions: Service Date/Time: Saturday, July 11, 2015 09:49 - CONCLUSION: Scattered patchy densities significantly improved from previous study. Tiny anterior right basilar pneumothorax. Right-sided chest tube in good position. Néstor Matamoros MD Head CT 06/18/151902 Signed Impressions: Service Date/Time: June 19:31 - CONCLUSION: Diffuse atrophy unchanged. No acute intracranial findings. Kush Briscoe MD Abdomen/Pelvis CT 06/18/151902 Signed Impressions: Service Date/Time: June 19:36 - CONCLUSION: 1. Chronic nonspecific urinary bladder wall thickening. Bladder collapsed with Putnam catheter in place. 2. Chronic bilateral mid to lower lung zone groundglass opacity. 3. Nonobstructing left renal calculus. 4. Distended rectum. Kush Briscoe MD Objective Remarks GENERAL: Cachectic patient with limbs contracted. Eyes open. SKIN: Warm and dry. HEAD: Normocephalic. EYES: Left erythematous and with drainage. NECK: 8.0 Distal XLT trach in place CARDIOVASCULAR: Tachycardic without murmurs, gallops, or rubs. RESPIRATORY: Coarse breath sounds. GASTROINTESTINAL: Abdomen soft, non-tender, nondistended. MUSCULOSKELETAL: Contracted limbs. Wound on lower back currently bandaged. NEURO: Eyes are open, not tracking. Procedures 07/26- PEG replacement 07/29- right pigtail catheter placement for new pneumothorax Medications and IVs Current Medications Medications (Trade) Dose Ordered Sig/Jassi Route Start Time Stop Time Status Last Admin (NS Flush) 2 ml UNSCH PRN IVF 06/18/15 21:30 02/01/16 03:04 (NS Flush) 2 ml BID IVF 06/19/15 09:00 02/29/16 09:00 (Tylenol 650 Mg/ 20 ml Liq) 650 mg Q6H PRN TUBE 06/18/15 21:30 02/29/16 03:23 (Tears Naturale Opth Soln) 1 drop TID EACH EYE 06/19/15 09:00 02/29/16 13:00 (Zofran Inj) 4 mg Q6H PRN IV 06/18/15 21:30 11/26/15 11:54 (Neurontin) 300 mg BID G-TUBE 06/19/15 09:00 02/29/16 09:32 (Lactinex) 1 tab TID PO 06/19/15 09:00 02/29/16 16:58 (Paxil) 20 mg DAILY G-TUBE 06/19/15 09:00 02/29/16 09:32 (Pill Splitter) 1 ea UNSCH PRN OTHER 06/19/15 03:30 06/28/15 09:35 (Prevacid Odt) 30 mg DAILY NG 07/08/15 09:00 02/29/16 09:32 (Morphine Inj) 2 mg Q3H PRN IV PUSH 07/28/15 00:45 02/27/16 02:32 (Lovenox Inj) 40 mg Q24H SQ 08/09/15 22:00 02/28/16 20:52 ([place] 5-325 Mg) 1 tab Q6H PRN PO 08/15/15 15:45 02/29/16 03:23 (Sublimaze Inj) 50 mcg Q2H PRN IV PUSH 08/15/15 15:45 01/15/16 13:10 (Santyl Oint) 1 applic DAILY TOP 08/21/15 09:00 02/29/16 09:00 (Levsin Liq) 0.125 mg Q4H PRN PO 09/06/15 11:00 02/19/16 06:30 (D50w (Vial) Inj) 25 ml UNSCH PRN IV PUSH 10/12/15 17:30 01/06/16 20:14 (Glucagon Inj) 1 mg UNSCH PRN OTHER 10/12/15 17:30 (NovoLIN R SUPPLEMENTAL SCALE) 1 Q6H SQ 10/12/15 18:00 02/29/16 16:59 (Brethine Inj) 1 mg UNSCH PRN SQ 12/06/15 06:45 (Ativan Inj) 1 mg Q3HR PRN IVP 12/15/15 17:00 02/27/16 02:31 (Deltasone) 2.5 mg DAILY PO 12/23/15 09:00 02/29/16 09:31 (Free Water) 200 ml Q6HR G-TUBE 01/03/16 18:00 02/29/16 16:58 (KCl 40 Meq/30 ml Liq) 20 meq DAILY GT 01/08/16 17:00 02/29/16 09:31 (Urecholine) 10 mg Q8HR PO 01/13/16 22:00 02/29/16 13:20 (Sinemet 25-100 Mg) 1.5 tab QID GT 01/14/16 21:00 02/29/16 16:58 (Peridex 0.12% Liq) 15 ml BID@08,20 MT 02/04/16 10:20 02/29/16 08:00 (Polytrim Opht Soln) 1 drop Q6HR LEFT EYE 02/25/16 18:00 03/03/16 07:00 02/29/16 16:58 A/P Problem List: (1) Fever ICD Code: R50.9 Status: Acute Plan: Patient had a fever with a MAXIMUM TEMPERATURE of 102.3 axillary last night, again up to 101.5 this a.m. etiology is unclear, however as per RN report the patient has been producing a thicker sputum. As per RN report, the heating in the room was very elevated and the patient's temperature went down on itself when he turned the temperature in the room down. I will continue to monitor the patient's vital signs temperature. Should the patient have a repeat fever then workup should be undergone. At that time blood cultures, sputum cultures, chest x-ray, urinalysis and empiric IV antibiotics should be started. (2) Sepsis due to urinary tract infection ICD Code: A41.9 Status: Resolved Plan: ID consulted. The patient was on IV antibiotics as per infectious disease. Status post Zosyn. Status post vancomycin and Levaquin as well as tobramycin nebulization discontinued 02/11/16. ID was reconsulted for UTI. Treat with fluconazole with a stop date on 02/27/16. (3) Chronic respiratory failure ICD Code: J96.10 Status: Chronic Plan: Patient on tracheostomy. Tolerating TPs. Status post recurrent right pneumothorax status post pigtail catheter removal. Last chest x-ray was stable on 02/23/16 Pulmonary following. Continue BiPAP at night. Suction secretions as needed Patient on by mouth steroids, on prednisone 2.5 mg by mouth daily Continue DuoNeb's 4 times a day and when needed. Status post colistin nebs and Solu-Medrol. (4) Parkinson disease ICD Code: G20 Status: Chronic Plan: Gosia Sinemet. Seems to be stable. (5) UTI (urinary tract infection) ICD Code: N39.0 Status: Resolved Plan: ID consulted. Status post treatment with fluconazole. Change Putnam catheter monthly. (6) Encephalopathy ICD Code: G93.40 Status: Resolved Plan: Likely metabolic encephalopathy. Neuro was consulted. CT head 06/18/15 showed diffuse atrophy unchanged. No acute intrapelvic findings. The patient is alert and nonverbal. Parkinson's medications were increased by neurology. Zyprexa was discontinued in 02/25. Continue to wean clonazepam. Change to every 48 hours on 02/13. He was discontinued on 02/23. (7) Feeding tube obstruction ICD Code: T85.598A Status: Resolved Plan: Feeding tube working well. Patient is status post PEG for moderate port protein, malnutrition. It was some concerns for hematemesis on 12/05. GI evaluated patient. Gastric was negative and hemoglobin has been stable. However J-tube was not function 02/25 and he was replaced by interventional radiology. Continue senna and Colace for bowel regimen here in Continue PPI Continue to feedings which the patient tolerating well. (8) Conjunctivitis ICD Code: H10.9 Status: Acute Plan: Seems to be stable. Appetite drainage and erythema have resolved. Patient being treated with Polytrim ophthalmic solution which will be discontinued on 03/02. Assessment and Plan GI prophylaxis: PPI. Stool softener. When necessary for constipation. DVT prophylaxis: Lovenox Discharge Planning Awaiting clinical improvement. Continue to monitor in the medical floor. Problem Qualifiers (1) Fever: Qualified Code: R50.9 - Fever, unspecified fever cause (2) Chronic respiratory failure: Qualified Code: J96.10 - Chronic respiratory failure, unspecified whether with hypoxia or hypercapnia (3) Conjunctivitis: Qualified Code: H10.9 - Conjunctivitis of left eye, unspecified conjunctivitis type Shon Jordan MD Feb 29, 2016 20:04
[2016-02-29 21:15] LABS: AUTOMATED NEUTROPHIL # 14.5 TH/MM3 (1.8-7.7); BASOPHIL # 0.1 TH/MM3 (0-0.2); BASOPHIL % 0.7 % (0.0-2.0); EOSINOPHIL # 0.1 TH/MM3 (0-0.4); EOSINOPHIL % 0.6 % (0.0-4.0); HEMATOCRIT 39.4 % (39.0-51.0); HEMO FLAGS DIFF FINAL; LYMPH % 8.1 % (9.0-44.0); LYMPHOCYTE # 1.4 TH/MM3 (1.0-4.8); MEAN CELL VOLUME 84.6 FL (80.0-100.0); MEAN CORPUSCULAR HEMOGLOBIN 27.1 PG (27.0-34.0); MONO % 8.3 % (0.0-8.0); NEUT % 82.3 % (16.0-70.0); PLATELET COUNT 238 TH/MM3 (150-450); RED BLOOD COUNT 4.66 MIL/MM3 (4.50-5.90); RED CELL DISTRIBUTION WIDTH 15.7 % (11.6-17.2); WHITE BLOOD COUNT 17.6 TH/MM3 (4.0-11.0)
[2016-02-29] MEDS: ENOXAPARIN SODIUM 40 MG/0.4 ML SYRINGE SQ SCH (21:30)
[2016-02-29 21:33] LABS: ANION GAP 7 MEQ/L (5-15); AST (GOT) 78 U/L (15-37); BICARBONATE 33.4 MEQ/L (21.0-32.0); BLOOD UREA NITROGEN 38 MG/DL (7-18); CHLORIDE 106 MEQ/L (98-107); GLOMERULAR FILTRATION RATE 114 ML/MIN (>89); MAGNESIUM 2.5 MG/DL (1.5-2.5); POTASSIUM 4.4 MEQ/L (3.5-5.1); SODIUM (NA) 146 MEQ/L (136-145)
[2016-02-29 21:37] LABS: ALKALINE PHOSPHATASE 67 U/L (45-117); ALT (GPT) 17 U/L (12-78); TOTAL BILIRUBIN ADULT 0.3 MG/DL (0.2-1.0)
--- NOTE | 2016-02-29 22:37 | RADRPT ---
EXAM DATE/TIME: 02/29/2016 20:20 [facility] COMPARISON: CHEST SINGLE AP, February 23, 2016, 14:25. INDICATIONS : Fever MEDICAL HISTORY : Hypertension. Gastroesophageal reflux disease. Diabetes mellitus type II. SURGICAL HISTORY : Tracheostomy ENCOUNTER: Subsequent ACUITY: 2 weeks PAIN SCORE: Non-responsive. LOCATION: Bilateral chest FINDINGS: Tracheostomy tube again noted. There is some hazy opacity in the lungs that could represent a mild br onchopneumonia. No effusion. Heart size normal. Gastrostomy noted. CONCLUSION: 1. Hazy opacity in the lungs that could represent a mild bronchopneumonia. Amaury Ellsworth MD on February 29, 2016 at 22:35 Board Certified Radiologist. This report was verified electronically.
[2016-03-01] VITALS (8 sets, daily range): BP systolic 107–120; BP diastolic 56–68; PULSE 83–103; RESP 24–26; TEMP 97.1–101; O2SAT 93–99
[2016-03-01] MEDS: FREE WATER G-TUBE SCH ×4 (01:23→17:51)
[2016-03-01] MEDS: POLYMYXIN/TRIMETHOPRIM OPHT SOLN 10 ML BTL LEFT EYE SCH ×4 (01:23→17:51)
[2016-03-01] MEDS: BETHANECHOL CHL 10 MG TAB PO SCH ×3 (05:15→21:18)
[2016-03-01] MEDS: INSULIN NovoLIN REGULAR SUPPLEMENTAL SCALE SQ SCH ×4 (05:16→18:00)
[2016-03-01] MEDS: CHLORHEXIDINE GLUCONATE 0.12% 30 ML CUP MT SCH ×2 (08:00→21:17)
[2016-03-01] MEDS: SODIUM CHLORIDE 0.9% FLUSH 5 ML FLUSH IVF SCH ×2 (09:00→21:26)
[2016-03-01] MEDS: ARTIFICIAL TEARS OPTH SOLN 15 ML BTL EACH EYE SCH ×3 (09:00→17:51)
[2016-03-01] MEDS: COLLAGENASE OINT 30 GM TUBE TOP SCH (09:00)
[2016-03-01] MEDS: POTASSIUM CL 40 MEQ/30 ML LIQ UDC GT SCH (09:00)
[2016-03-01] MEDS: PARoxetine HCL 20 MG TAB G-TUBE SCH (09:20)
[2016-03-01] MEDS: CARBIDOPA/LEVODOPA 25 MG/100 MG TAB GT SCH ×4 (09:20→21:18)
[2016-03-01] MEDS: LACTOBACILLUS ACIDOPHILUS TAB PO SCH ×3 (09:21→17:51)
[2016-03-01] MEDS: GABAPENTIN 300 MG CAP G-TUBE SCH ×2 (09:21→21:17)
[2016-03-01] MEDS: LANSOPRAZOLE SOLUTAB 30 MG TAB NG SCH (09:21)
[2016-03-01] MEDS: predniSONE 5 MG TAB PO SCH (09:21)
[2016-03-01] MEDS ORDERED: VANCOMYCIN INJ 700 MG in SODIUM CHLOR 0.9% 250 ML INJ 250 ML IV SCH (11:00)
[2016-03-01] MEDS: CEFEPIME INJ 2,000 MG in SODIUM CHLORIDE 0.9% INJ 100 ML IV SCH ×2 (12:47→17:48)
--- NOTE | 2016-03-01 13:14 | HHI.PR ---
Objective Vitals Vital Signs Date Time Temp Pulse Resp B/P Pulse Ox O2 Delivery O2 Flow Rate FiO2 03/01/16 12:00 98.6 103 26 108/57 97 03/01/16 08:00 98.5 97 26 115/65 96 03/01/16 07:55 95 T-piece 6.00 35 03/01/16 05:30 98.1 83 25 114/64 99 03/01/16 01:53 95 30 03/01/16 00:45 97.1 90 24 120/68 95 02/29/16 22:00 97.7 92 24 121/65 96 02/29/16 20:26 99 30 02/29/16 20:00 T-Piece 6.00 28 02/29/16 16:00 95.7 88 22 116/68 98 I/O 02/29/16 02/29/16 02/29/16 03/01/16 03/01/16 03/01/16 07:00 15:00 23:00 07:00 15:00 23:00 Intake Total 0 ml 2151 ml Output Total 250 ml 175 ml 200 ml Balance -250 ml -175 ml -200 ml 2151 ml Intake Oral 0 ml 0 ml Tube Feeding 1651 ml Tube Irrigant 500 ml Output Urine Total 250 ml 175 ml 200 ml # Bowel Movements 1 0 0 0 Result Diagram: 02/29/16210602/29/162106 Objective Remarks GENERAL: Cachectic patient with limbs contracted. Eyes open. SKIN: Warm and dry. HEAD: Normocephalic. EYES: Left erythematous and with drainage. NECK: 8.0 Distal XLT trach in place CARDIOVASCULAR: Tachycardic without murmurs, gallops, or rubs. RESPIRATORY: Coarse breath sounds. GASTROINTESTINAL: Abdomen soft, non-tender, nondistended. MUSCULOSKELETAL: Contracted limbs. Wound on lower back currently bandaged. NEURO: Eyes are open, not tracking. Procedures 07/26- PEG replacement 07/29- right pigtail catheter placement for new pneumothorax A/P Problem List: (1) Fever ICD Code: R50.9 Status: Acute (2) Sepsis due to urinary tract infection ICD Code: A41.9 Status: Resolved (3) Chronic respiratory failure ICD Code: J96.10 Status: Chronic (4) Parkinson disease ICD Code: G20 Status: Chronic (5) UTI (urinary tract infection) ICD Code: N39.0 Status: Resolved (6) Encephalopathy ICD Code: G93.40 Status: Resolved (7) Feeding tube obstruction ICD Code: T85.598A Status: Resolved (8) Conjunctivitis ICD Code: H10.9 Status: Acute Assessment and Plan GI prophylaxis: PPI. Stool softener. When necessary for constipation. DVT prophylaxis: Lovenox Discharge Planning Awaiting clinical improvement. Continue to monitor in the medical floor. Problem Qualifiers (1) Fever: Qualified Code: R50.9 - Fever, unspecified fever cause (2) Chronic respiratory failure: Qualified Code: J96.10 - Chronic respiratory failure, unspecified whether with hypoxia or hypercapnia (3) Conjunctivitis: Qualified Code: H10.9 - Conjunctivitis of left eye, unspecified conjunctivitis type Shon Jordan MD Mar 01, 2016 13:14
[2016-03-01 13:58] LABS: BACTERIA, URINE MOD /hpf; BLOOD, URINE MOD (NEG); CALCIUM OXALATE CRYSTALS,URINE RARE /hpf; COMMENT (UR) CATH-CULTURE IND; CULTURE IF INDICATED CATH CULTURE IND; GLUCOSE,URINE NEG (NEG); KETONE, URINE TRACE mg/dL (NEG); MUCUS URINE FEW /lpf (OCC); NITRITE,URINE POS (NEG); RENAL EPITHELIAL CELLS <1 /hpf; SQUAMOUS EPITHELIAL CELL URINE <1 /hpf (0-5); URINE COLOR YELLOW (YELLW/STRAW)
[2016-03-01] MEDS ORDERED: Vancomycin Consult Pharmacy 1 EA OTHER SCH (14:15)
--- NOTE | 2016-03-01 17:35 | HHI.PR ---
Subjective Remarks Awake , and 0n a T bar FIO2 30 % . has a Fever upto 101. .On Bipap at HS. On IV antibiotics per ID. WBC up. O2 Sat 97. Lethargic. No change overall. Objective Vital Signs Date Time Temp Pulse Resp B/P Pulse Ox O2 Delivery O2 Flow Rate FiO2 03/01/16 16:00 101.0 94 24 107/56 96 03/01/16 12:00 98.6 103 26 108/57 97 03/01/16 08:00 98.5 97 26 115/65 96 03/01/16 07:55 95 T-piece 6.00 35 03/01/16 05:30 98.1 83 25 114/64 99 03/01/16 01:53 95 30 03/01/16 00:45 97.1 90 24 120/68 95 02/29/16 22:00 97.7 92 24 121/65 96 02/29/16 20:26 99 30 02/29/16 20:00 T-Piece 6.00 28 I/O 02/29/16 02/29/16 02/29/16 03/01/16 03/01/16 03/01/16 07:00 15:00 23:00 07:00 15:00 23:00 Intake Total 0 ml 2151 ml Output Total 250 ml 175 ml 200 ml 200 ml Balance -250 ml -175 ml -200 ml 2151 ml -200 ml Intake Oral 0 ml 0 ml Tube Feeding 1651 ml Tube Irrigant 500 ml Output Urine Total 250 ml 175 ml 200 ml 200 ml # Bowel Movements 1 0 0 0 0 Result Diagram: 02/29/16210602/29/162106 Objective Remarks This is a thin white male who is , awake with a trach tube in place. HEENT: Pupils are equal and reactive to light. CHEST:Decreased breath sounds,with Occ basal crackles. CARDIOVASCULAR: S1 and S2 is normal.No murmur. ABDOMEN: Soft, nondistended. BS +. He has a PEG and J tube in place. EXTREMITIES: Contractures.muscle wasting. NEURO: Awake and has weak extremities. Skin is warm. Assessment and Plan Assessment and Plan IMPRESSION 1. Chronic Respiratory failure. 2. Sepsis, Aspiration. 3. Left basal Pneumonia, Resolved 4. Basal pneumonia 5. Parkinson's disease 6. Dementia. 7. Severe Deconditioning. Plan : 1. Continue on Bipap 06/20, FIo2 30 % at 11 pm to 7 am. 2. Nebs Bid , duoneb. 3. Tube feeds at 40 CC 4. T Bar 35 % daytime. 5. Reculture trach aspirate 6. Cont Trach toilet and lavage. 7. Antibiotics Vanco /Zosyn. 1 Darren Kiser MD Mar 01, 2016 17:35
--- NOTE | 2016-03-01 18:11 | HHI.HCPN ---
Reason for visit a. To assist with evaluation and management of symptoms including: pain, malnutrition, dyspnea. b. To assist medical decision maker(s) with: better understanding of current medical conditions; weighing benefits/burdens of medical treatment options; making medical treatment decisions. . Subjective/Interval History Patient had Tmax yesterday of 102.3 and Tmax today of 101.0. He has been cultures for urine/sputum/blood and results are pending. CXR of 02/29/16 read as possible mild bronchopneumonia. Patient has eyes open at time of my visit. He turns slightly to voice. Examined patient with medical student -- Janee Danielson. I believe patient was able to shake head "no" when asked if he was cold. He also closed his eyes and held them closed on command and was able to squeeze my fingers on command. I was surprised by this level of response. No other commands were followed. Nursing pain level scores 0-4 over last 24 hours. No opiate analgesics given since 0323 last night. BP lower than usual. RR up. Urine output low. WBC up to 17.6 on 02/29/16. . Family/friend interactions No conversations with friends/family. . Advance Directives Living Will: Never completed Health Care Surrogate: Copy in medical record Durable Power of Renderer: Never completed Advance Directive Specifics Date completed: Patient visited Scott Mack, Renderer in March and again in November 2014. The patient was encouraged to complete Advance directive documents but never did them. Dr. Pickard personally called Mr. Mack ([phone]) to check for advance directives. Health Care Surrogate(s): The patient completed a health care surrogate document dated 09/02/14 desigating his friend Bola Nolasco as surrogate. Mr. Nolasco was not aware of this and has declined serving in that capacity. The patient has an adult daughter -- Radha Foreman who is willing to serve as health care proxy decision maker. Patient's mother, Teresa is aware. Objective Vital Signs Date Time Temp Pulse Resp B/P Pulse Ox O2 Delivery O2 Flow Rate FiO2 03/01/16 16:00 101.0 94 24 107/56 96 03/01/16 12:00 98.6 103 26 108/57 97 03/01/16 08:00 98.5 97 26 115/65 96 03/01/16 07:55 95 T-piece 6.00 35 03/01/16 05:30 98.1 83 25 114/64 99 03/01/16 01:53 95 30 03/01/16 00:45 97.1 90 24 120/68 95 02/29/16 22:00 97.7 92 24 121/65 96 02/29/16 20:26 99 30 02/29/16 20:00 T-Piece 6.00 28 Intake & Output 03/01/16 03/01/16 07:00 19:00 Intake Total 2151 ml Output Total 200 ml 200 ml Balance 1951 ml -200 ml Intake Oral 0 ml Tube Feeding 1651 ml Tube Irrigant 500 ml Output Urine Total 200 ml 200 ml # Bowel Movements 0 0 . Physical Exam CONSTITUTIONAL/GENERAL: This is a thin, pale, contracted, chronically ill appearing malein med - surg bed with t-tube to trach. Face is flushed but not warm. Intermittent tremor. TUBES/LINES/DRAINS: Trach, valdez cath, PEG tube, SKIN: flushed face. Sacral wound not examined today. Not diaphoretic. NECK: Tracheostomy to t-piece. CARDIOVASCULAR: Regular rate and rhythm without murmurs, gallops, or rubs. No JVD. Peripheral pulses symmetric. RESPIRATORY/CHEST: Tachypnic, but not using accessory muscles .Breath sounds equal bilaterally with some scattered ronchi. No wheezes heard. GASTROINTESTINAL: Abdomen soft, non-tender, nondistended. GENITOURINARY: Without palpable bladder distension. catheter in place. MUSCULOSKELETAL: Contractures of bilateral upper and lower extremities appear more rigid. No mottling. NEUROLOGICAL: Eyes open. Appeared to shake head "no" when asked if he was cold. Closed eyes and weakly squeezed fingers on command. Intermittent tremor. PSYCHIATRIC: Unable to assess due to level of responsiveness. . Diagnostic Tests Laboratory Laboratory Tests Test 02/29/16 03/01/16 21:07 13:25 White Blood Count 17.6 TH/MM3 (4.0-11.0) Red Blood Count 4.66 MIL/MM3 (4.50-5.90) Hemoglobin 12.6 GM/DL (13.0-17.0) Hematocrit 39.4 % (39.0-51.0) Mean Corpuscular Volume 84.6 FL (80.0-100.0) Mean Corpuscular Hemoglobin 27.1 PG (27.0-34.0) Mean Corpuscular Hemoglobin 32.0 % Concent (32.0-36.0) Red Cell Distribution Width 15.7 % (11.6-17.2) Platelet Count 238 TH/MM3 (150-450) Mean Platelet Volume 9.7 FL (7.0-11.0) Neutrophils (%) (Auto) 82.3 % (16.0-70.0) Lymphocytes (%) (Auto) 8.1 % (9.0-44.0) Monocytes (%) (Auto) 8.3 % (0.0-8.0) Eosinophils (%) (Auto) 0.6 % (0.0-4.0) Basophils (%) (Auto) 0.7 % (0.0-2.0) Neutrophils # (Auto) 14.5 TH/MM3 (1.8-7.7) Lymphocytes # (Auto) 1.4 TH/MM3 (1.0-4.8) Monocytes # (Auto) 1.5 TH/MM3 (0-0.9) Eosinophils # (Auto) 0.1 TH/MM3 (0-0.4) Basophils # (Auto) 0.1 TH/MM3 (0-0.2) CBC Comment DIFF FINAL Differential Comment Sodium Level 146 MEQ/L (136-145) Potassium Level 4.4 MEQ/L (3.5-5.1) Chloride Level 106 MEQ/L (98-107) Carbon Dioxide Level 33.4 MEQ/L (21.0-32.0) Anion Gap 7 MEQ/L (5-15) Blood Urea Nitrogen 38 MG/DL (7-18) Creatinine 0.72 MG/DL (0.60-1.30) Estimat Glomerular Filtration 114 ML/MIN Rate (>89) Random Glucose 122 MG/DL (74-106) Calcium Level 9.3 MG/DL (8.5-10.1) Phosphorus Level 2.5 MG/DL (2.5-4.9) Magnesium Level 2.5 MG/DL (1.5-2.5) Total Bilirubin 0.3 MG/DL (0.2-1.0) Aspartate Amino Transf 78 U/L (15-37) (AST/SGOT) Alanine Aminotransferase 17 U/L (12-78) (ALT/SGPT) Alkaline Phosphatase 67 U/L (45-117) Total Protein 7.9 GM/DL (6.4-8.2) Albumin 3.3 GM/DL (3.4-5.0) Urine Color YELLOW (YELLW/STRAW) Urine Turbidity HAZY (CLEAR) Urine pH 8.0 (5.0-8.5) Urine Specific [place] 1.027 (1.002-1.035) Urine Protein 30 mg/dL (NEG-TRACE) Urine Glucose (UA) NEG mg/dL (NEG) Urine Ketones TRACE mg/dL (NEG) Urine Occult Blood MOD (NEG) Urine Nitrite POS (NEG) Urine Bilirubin NEG (NEG) Urine Urobilinogen LESS THAN 2.0 MG/DL (LESS THAN 2.0) Urine Leukocyte Esterase LARGE (NEG) Urine RBC 70 /hpf (0-3) Urine WBC /hpf (0-5) Urine Squamous Epithelial <1 /hpf (0-5) Cells Urine Renal Epithelial Cells <1 /hpf (NONE) Urine Calcium Oxalate Crystals RARE /hpf (NONE) Urine Amorphous Sediment RARE Urine Bacteria MOD /hpf (NONE) Urine Mucus FEW /lpf (OCC) Microscopic Urinalysis Comment CATH-CULTURE IND . Result Diagram: 02/29/16210602/29/162106 Microbiology Microbiology Date/Time Procedure Status Source Growth 02/29/16 21:00 Aerobic Blood Culture - Preliminary Resulted Blood Peripheral NO GROWTH IN 1 DAY 02/29/16 21:00 Anaerobic Blood Culture - Preliminary Resulted Blood Peripheral NO GROWTH IN 1 DAY 02/29/16 21:05 Aerobic Blood Culture - Preliminary Resulted Blood Peripheral NO GROWTH IN 1 DAY 02/29/16 21:05 Anaerobic Blood Culture - Preliminary Resulted Blood Peripheral NO GROWTH IN 1 DAY 03/01/16 13:25 Gram Stain Received Sputum Endotracheal Pending 03/01/16 13:25 Sputum Culture Received Sputum Endotracheal Pending 03/01/16 13:25 Urine Culture Received Urine Catheterized Urine Pending Imaging Last Impressions Chest X-Ray 02/29/16 0000 Signed Impressions: Service Date/Time: Monday, February 29, 2016 20:20 - CONCLUSION: 1. Hazy opacity in the lungs that could represent a mild bronchopneumonia. Amaury Ellsworth MD Tube Change 02/26/16 0000 Signed Impressions: Service Date/Time: Friday, February 26, 2016 18:49 - CONCLUSION: Uncomplicated gastrojejunostomy tube exchange as above. Scott Goode MD Tube Check 02/12/16 0000 Signed Impressions: Service Date/Time: Friday, February 12, 2016 16:08 - CONCLUSION: Uncomplicated tube injection as above. Blaine Jackson MD Gastrostomy Tube Change 01/15/16 0000 Signed Impressions: Service Date/Time: Friday, January 15, 2016 12:28 - CONCLUSION: Successful GJ tube exchange as above. Scott Goode MD Abdomen X-Ray 01/12/16 1628 Signed Impressions: Service Date/Time: Tuesday, January 12, 2016 17:35 - CONCLUSION: No evidence of obstruction or free air. Reyes Jewell MD Abdomen Ultrasound 12/06/15 0000 Signed Impressions: Service Date/Time: Sunday, December 06, 2015 17:42 - CONCLUSION: 1. The gallbladder is unremarkable with no evidence of cholelithiasis. 2. Simple cyst in the left kidney. 3. Mild pyelocaliectasis in the right kidney. Salazar Thurman MD Upper Extremity Ultrasound 10/13/15 0000 Signed Impressions: Service Date/Time: Tuesday, October 13, 2015 09:51 - CONCLUSION: 1. No evidence of deep venous thrombosis. John Anderson MD Renal Ultrasound 10/07/15 0000 Signed Impressions: Service Date/Time: Wednesday, October 07, 2015 18:29 - CONCLUSION: 1. No acute findings. 3.6 cm left renal cyst. Valedz catheter in bladder. Amaury Ellsworth MD Tunnelled Chest Tube Removal 08/05/15 1100 Signed Impressions: Service Date/Time: Wednesday, August 05, 2015 11:00 - CONCLUSION: Uncomplicated chest tube removal. Blaine Jackson MD Chest Tube Change 07/31/15 0000 Signed Impressions: Service Date/Time: Friday, July 31, 2015 14:34 - CONCLUSION: Uncomplicated reposition of previously placed chest tube as above. Blaine Jackson MD Chest Tube Insertion 07/30/15 0000 Signed Impressions: Service Date/Time: July 14:50 - CONCLUSION: Uncomplicated chest tube placement as above. Blaine Jackson MD Catheter Change 07/27/15 0000 Signed Impressions: Service Date/Time: Monday, July 27, 2015 14:43 - CONCLUSION: Uncomplicated gastrostomy tube exchange as above. Blaine Jackson MD Chest CT 07/11/15 0000 Signed Impressions: Service Date/Time: Saturday, July 11, 2015 09:49 - CONCLUSION: Scattered patchy densities significantly improved from previous study. Tiny anterior right basilar pneumothorax. Right-sided chest tube in good position. Néstor Matamoros MD Head CT 06/18/151902 Signed Impressions: Service Date/Time: , June 18, 2015 19:31 - CONCLUSION: Diffuse atrophy unchanged. No acute intracranial findings. Kush Briscoe MD Abdomen/Pelvis CT 06/18/151902 Signed Impressions: Service Date/Time: June 19:36 - CONCLUSION: 1. Chronic nonspecific urinary bladder wall thickening. Bladder collapsed with Valdez catheter in place. 2. Chronic bilateral mid to lower lung zone groundglass opacity. 3. Nonobstructing left renal calculus. 4. Distended rectum. Kush Briscoe MD . Procedures * Mechanical ventilation * Chest tube placement on right 07/07/15 * Chest tube removal 07/17/15 . Assessment and Plan Disease Oriented Problem List: (1) Acute respiratory failure Comment: 10/13/15 - Halicat for hypotension and tube feeding coming from [facility]. [facility] . (2) Chronic respiratory failure (3) Pneumonia Comment: recurrent aspiration. . (4) UTI (urinary tract infection) Comment: . (5) Parkinson disease (6) Moderate malnutrition Symptom Scale: (1) Pain 0-10 Scale: Unable to quantify (Pt unable to quantify, nurse reports level 1) Comment: Sources of pain might include wound, prolonged bedbound status, contractures, restraints, valdez, vascular access catheters. Appears comfortable on current regimen. ,l (2) Dyspnea 0-10 Scale: Unable to quantify Comment: On t-piece. Respiratory rate up. Fever -- high risk of recurrent aspiration pneumonia. . . (3) Malnutrition 0-10 Scale: Unable to quantify Comment: On tube feeding. . (4) Encephalopathy 0-10 Scale: Unable to quantify Comment: Remains minimally responsive. . Pertinent Non-Medical Issues Psychosocial: care home custodial resident. 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 Severe dementia. Daughter, mother, and brother are involved. Spiritual: Denominational. Has been a member for the [facility] [employer] and members have provided both community support and spiritual support in the past. Legal: No advance directives. Daughter (Radha Foreman) is legal proxy and lives 4 hours away. She can be quite difficult to contact by phone. Ethical issues impacting care: None. . Important Contacts * Radha Foreman (daughter and proxy) [phone] * Teresa Perea (mother -- lives in [place]) [phone] . Prognosis Patient has end stage Parkinson's with end stage dementia. He is a [employer] [place] resident and has required multiple hospitalizations for sepsis. He is a chronic trach/PEG tube patient with contractures and skin breakdown. He has been hospitalized here over 250 days on this admission and moves back and forth from floor to ICU for recurrent pneumonia (probably from aspirations) and sepsis. Should family continue to want aggressive care, he will continue to go back and forth from facility to hospital until such time that we are no longer able to overcome the sepsis. Patient is hospice eligible whenever family is ready to transition to "comfort measures only." . Code Status: No Code (No cardiac resuscitation, shock, ACLS or mech vent. ) Plan * Decision making: Patient is incapacitated and will not regain capacity. There is no designated health care surrogate. Daughter, Radha Foreman, is legal proxy under [place] statutes but can be hard to contact at times. * NO CODE - No cardiac resuscitation, shock, ACLS or mech vent, No Pressors. * Pain: Sources of pain are unclear as patient in non communicative, but would include prolonged bedbound status; tubes and lines; contractures; wound; etc. Current regimen appears to adequate . No further recommendations at this time. Recommend at least scheduled acetaminophen (e.g. 650 mg q 8 hours ATC) as patient is probably uncomfortable and cannot communicate it. * Dyspnea: Probable another aspiration pneumonia. Hopefully, can avoid ICU and vent. Patient back on antibioitcs. Await culture results. Has previously been challenging to get off vent. * Malnutrition: Tolerating tube feeds but continues to have intermittent aspirations. patient is skeletal appearing. * Palliative care will continue to follow. . Attestation To help prompt me to consider important information that might be impacting today's encounter and assessment, information from prior notes written by myself or my colleagues may have been "brought forward" into today's note. My signature on this note, however, is an attestation that I personally performed the exam, history, and/or decision-making noted today, and, unless otherwise indicated, the interactions with patient, family, and staff as well as the review of records all occurred today. I also attest that the listed assessment and stated plan reflect my best clinical judgment today based on the combination of historical information, prior notes, and today's exam/ interactions. When time spent is documented, it refers only to time spent today by the signer, or if indicated, combined time spent today by collaborating physician/nurse practitioner. . Pascual Pickard MD Mar 01, 2016 18:11
--- NOTE | 2016-03-01 20:29 | HHI.IDPN ---
Subjective Subjective Remarks Patient known to me. ID reconsulted for new sepsis. Notes reviewed Tcurrent: 89 F No vomiting episodes. Tube feeds no residuals. UO ok. Trach on T-peice. Secretions thick, yellow and mehta at times, copious. BP ok Clinically stable. d/w RN Antibiotics Cefepime IV Vanco IV Lines Peripheral IV with no e/o infection Past Medical History reviewed Allergies: Coded Allergies: *MDRO Multi-Drug Resistant Organism (Verified Adverse Reaction, Unknown, ESBL, carbapenem resistant Pseudomonas, 01/13/16) ESBL E. coli (urine) - 02/19/2015; ESBL K. pneumoniae (sputum-06/18/15, 08/03/15, 09/20/15,10/12/15, 11/27/15, 12/26/15, 01/09/16), (urine-08/03/15 & 11/27/15), MRSA PCR POSITIVE - 03/20/2015 MDR-Pseudomonas (sputum)- 08/18/15, 09/20/15, 10/2015 (Carbapenem resistant) Objective . Vital Signs Date Time Temp Pulse Resp B/P Pulse Ox O2 Delivery O2 Flow Rate FiO2 03/01/16 20:18 100.7 93 24 114/58 93 03/01/16 16:00 101.0 94 24 107/56 96 03/01/16 12:00 98.6 103 26 108/57 97 03/01/16 08:00 98.5 97 26 115/65 96 03/01/16 07:55 95 T-piece 6.00 35 03/01/16 05:30 98.1 83 25 114/64 99 03/01/16 01:53 95 30 03/01/16 00:45 97.1 90 24 120/68 95 02/29/16 22:00 97.7 92 24 121/65 96 02/29/16 20:26 99 30 02/29/16 02/29/16 03/01/16 15:00 23:00 07:00 Intake Total 0 ml 2151 ml Output Total 175 ml 200 ml Balance -175 ml -200 ml 2151 ml Intake Oral 0 ml 0 ml Tube Feeding 1651 ml Tube Irrigant 500 ml Output Urine Total 175 ml 200 ml # Bowel Movements 0 0 0 . Laboratory Tests Test 02/29/16 21:07 White Blood Count 17.6 TH/MM3 Red Blood Count 4.66 MIL/MM3 Hemoglobin 12.6 GM/DL Hematocrit 39.4 % Mean Corpuscular Volume 84.6 FL Mean Corpuscular Hemoglobin 27.1 PG Mean Corpuscular Hemoglobin 32.0 % Concent Red Cell Distribution Width 15.7 % Platelet Count 238 TH/MM3 Mean Platelet Volume 9.7 FL Neutrophils (%) (Auto) 82.3 % Lymphocytes (%) (Auto) 8.1 % Monocytes (%) (Auto) 8.3 % Eosinophils (%) (Auto) 0.6 % Basophils (%) (Auto) 0.7 % Neutrophils # (Auto) 14.5 TH/MM3 Lymphocytes # (Auto) 1.4 TH/MM3 Monocytes # (Auto) 1.5 TH/MM3 Eosinophils # (Auto) 0.1 TH/MM3 Basophils # (Auto) 0.1 TH/MM3 CBC Comment DIFF FINAL Differential Comment Laboratory Tests Test 02/29/16 21:07 Sodium Level 146 MEQ/L Potassium Level 4.4 MEQ/L Chloride Level 106 MEQ/L Carbon Dioxide Level 33.4 MEQ/L Anion Gap 7 MEQ/L Blood Urea Nitrogen 38 MG/DL Creatinine 0.72 MG/DL Estimat Glomerular Filtration 114 ML/MIN Rate Random Glucose 122 MG/DL Calcium Level 9.3 MG/DL Phosphorus Level 2.5 MG/DL Magnesium Level 2.5 MG/DL Total Bilirubin 0.3 MG/DL Aspartate Amino Transf 78 U/L (AST/SGOT) Alanine Aminotransferase 17 U/L (ALT/SGPT) Alkaline Phosphatase 67 U/L Total Protein 7.9 GM/DL Albumin 3.3 GM/DL Microbiology Date/Time Procedure Status Source Growth 02/29/16 21:00 Aerobic Blood Culture - Preliminary Resulted Blood Peripheral NO GROWTH IN 1 DAY 02/29/16 21:00 Anaerobic Blood Culture - Preliminary Resulted Blood Peripheral NO GROWTH IN 1 DAY 02/29/16 21:05 Aerobic Blood Culture - Preliminary Resulted Blood Peripheral NO GROWTH IN 1 DAY 02/29/16 21:05 Anaerobic Blood Culture - Preliminary Resulted Blood Peripheral NO GROWTH IN 1 DAY 03/01/16 13:25 Gram Stain Received Sputum Endotracheal Pending 03/01/16 13:25 Sputum Culture Received Sputum Endotracheal Pending 03/01/16 13:25 Urine Culture Received Urine Catheterized Urine Pending Imaging Abdomen X-Ray 12/07/15 0600 Signed Impressions: Service Date/Time: Monday, December 07, 2015 03:40 - CONCLUSION: No dilated loops of small or large bowel. Tai Jaquez MD Chest X-Ray 12/07/15 Signed Impressions: Service Date/Time: Monday, December 07, 2015 03:34 - CONCLUSION: Right lung is clear. Slight improvement of interstitial infiltrates left mid and lower lung. Tai Jaquez MD Abdomen X-Ray 12/06/15 Signed Impressions: Service Date/Time: Sunday, December 06, 2015 08:05 - CONCLUSION: No acute disease. Erlin Barajas MD Abdomen Ultrasound 12/06/15 Signed Impressions: Service Date/Time: Sunday, December 06, 2015 17:42 - CONCLUSION: 1. The gallbladder is unremarkable with no evidence of cholelithiasis. 2. Simple cyst in the left kidney. 3. Mild pyelocaliectasis in the right kidney. Salazar Thurman MD Chest X-Ray 12/04/15 06 Signed Impressions: Service Date/Time: Friday, December 04, 2015 03:50 - CONCLUSION: Interstitial densities in the right lung. Néstor Matamoros MD Chest X-Ray 11/28/15 Signed Impressions: Service Date/Time: Saturday, November 28, 2015 00:21 - CONCLUSION: No acute cardiopulmonary disease. Eugene Schmid MD Abdomen X-Ray 11/26/15 0000 Signed Impressions: Service Date/Time: November 12:34 - CONCLUSION: 1. Nonobstructive bowel gas pattern. 2. Stable position of gastrostomy tube. Multiple surgical screws secure the proximal left femur. 3. No obvious pneumoperitoneum on the single projection provided. Scott Goode MD Upper Extremity Ultrasound 10/13/15 Signed Impressions: Service Date/Time: Tuesday, October 13, 2015 09:51 - CONCLUSION: 1. No evidence of deep venous thrombosis. John Anderson MD Renal Ultrasound 10/07/15 0000 Signed Impressions: Service Date/Time: Monday, October 07, 2015 18:29 - CONCLUSION: 1. No acute findings. 3.6 cm left renal cyst. Valdez catheter in bladder. Amaury Ellsworth MD Tunnelled Chest Tube Removal 08/05/15 1100 Signed Impressions: Service Date/Time: Wednesday, August 05, 2015 11:00 - CONCLUSION: Uncomplicated chest tube removal. Blaine Jackson MD Chest Tube Change 07/31/15 0000 Signed Impressions: Service Date/Time: Friday, July 31, 2015 14:34 - CONCLUSION: Uncomplicated reposition of previously placed chest tube as above. Blaine Jackson MD Chest Tube Insertion 07/30/15 0000 Signed Impressions: Service Date/Time: July 14:50 - CONCLUSION: Uncomplicated chest tube placement as above. Blaine Jackson MD Catheter Change 07/27/15 0000 Signed Impressions: Service Date/Time: Monday, July 27, 2015 14:43 - CONCLUSION: Uncomplicated gastrostomy tube exchange as above. Blaine Jackson MD Chest CT 07/11/15 0000 Signed Impressions: Service Date/Time: Saturday, July 11, 2015 09:49 - CONCLUSION: Scattered patchy densities significantly improved from previous study. Tiny anterior right basilar pneumothorax. Right-sided chest tube in good position. Néstor Matamoros MD Head CT 06/18/151902 Signed Impressions: Service Date/Time: June 19:31 - CONCLUSION: Diffuse atrophy unchanged. No acute intracranial findings. Kush Briscoe MD Abdomen/Pelvis CT 06/18/151902 Signed Impressions: Service Date/Time: June 19:36 - CONCLUSION: 1. Chronic nonspecific urinary bladder wall thickening. Bladder collapsed with Valdez catheter in place. 2. Chronic bilateral mid to lower lung zone groundglass opacity. 3. Nonobstructing left renal calculus. 4. Distended rectum. Kush Briscoe MD Physical Exam GENERAL: No interaction, dyspneic. SKIN: Cool and moist. No generalized rash. HEENT: [place] conjunctivae, no icterus, moist mucosa. NECK: Trach site looks ok. Neck is supple RESPIRATORY: Coarse BS razia, with few rhonchi GASTROINTESTINAL: Abdomen soft, not distended. No guarding. PEG site looks okay. MUSCULOSKELETAL: No cyanosis No pedal edema. Contracted all 4 extremities. NEUROLOGICAL: Eyes open, Extremities contracted Peripheral IV line sites with no evidence of infection. ; Valdez in place, urine looks clear Assessment & Plan Remarks IMPRESSION New Sepsis source likely Tracheobronchitis. Other sources: CAUTI or Bacteremia History of PSAE ESBL cath associated UTI. S/P Rx Chronic respiratory failure on trach PSAE and ESBL Kleb in sputum in recent past. Chronic encephalopathy with underlying diagnosis of advanced dementia as well as advanced Parkinson's disease. Status post trach Status post gastrostomy tube with no evidence of infection. Stage II sacral decubitus ulcer present on admission. h/o Recurrent aspiration tube feed related in past. Recommendations Continue Cefepime IV Continue Vanco IV Follow cultures Follow clinically. Recommend once a month valdez change as for chronic patients. Will follow along with you. Trina Moss MD Mar 01, 2016 20:29
[2016-03-01] MEDS: ENOXAPARIN SODIUM 40 MG/0.4 ML SYRINGE SQ SCH (21:18)
[2016-03-02] VITALS (9 sets, daily range): BP systolic 102–122; BP diastolic 57–69; PULSE 68–88; RESP 18–22; TEMP 96.7–99.9; O2SAT 93–100
[2016-03-02] MEDS: HYOSCYAMINE SOLN 0.125 MG/ML 15 ML BTL PO PRN (00:04)
[2016-03-02] MEDS: POLYMYXIN/TRIMETHOPRIM OPHT SOLN 10 ML BTL LEFT EYE SCH ×5 (00:04→22:57)
[2016-03-02] MEDS: VANCOMYCIN INJ 750 MG in SODIUM CHLOR 0.9% 250 ML INJ 250 ML IV SCH ×2 (02:28→13:19)
[2016-03-02] MEDS: CEFEPIME INJ 2,000 MG in SODIUM CHLORIDE 0.9% INJ 100 ML IV SCH ×3 (02:29→17:56)
[2016-03-02] MEDS: ACETAMINOPHEN 650 MG/20.3 ML UDC TUBE PRN (03:37)
[2016-03-02] MEDS: FREE WATER G-TUBE SCH ×5 (05:01→22:51)
[2016-03-02] MEDS: INSULIN NovoLIN REGULAR SUPPLEMENTAL SCALE SQ SCH ×5 (05:01→22:54)
[2016-03-02] MEDS: BETHANECHOL CHL 10 MG TAB PO SCH ×3 (05:01→22:43)
--- NOTE | 2016-03-02 07:12 | RADRPT ---
EXAM DATE/TIME: 03/02/2016 06:03 [place] COMPARISON: No previous studies available for comparison. INDICATIONS : Pneumonia. MEDICAL HISTORY : Hypertension. Gastroesophageal reflux disease. Diabetes mellitus type II. SURGICAL HISTORY : Tracheostomy. ENCOUNTER: Subsequent ACUITY: 2 weeks PAIN SCORE: Non-responsive. LOCATION: Bilateral chest FINDINGS: A single view of the chest demonstrates hyperinflation which can be seen with COPD. Minimal density r ight upper lobe. Heart is normal in size. Tracheostomy tube with tip 4 cm above the kalie. The medi astinal contours are unremarkable. Osseous structures are intact. CONCLUSION: Hyperinflation which can be seen with COPD. Minimal density right upper lobe could be atelectasis or infiltrate. Néstor Matamoros MD on March 02, 2016 at 7:09 Board Certified Radiologist. This report was verified electronically.
[2016-03-02] MEDS: predniSONE 5 MG TAB PO SCH (08:26)
[2016-03-02] MEDS: POTASSIUM CL 40 MEQ/30 ML LIQ UDC GT SCH (08:26)
[2016-03-02] MEDS: LANSOPRAZOLE SOLUTAB 30 MG TAB NG SCH (08:26)
[2016-03-02] MEDS: CHLORHEXIDINE GLUCONATE 0.12% 30 ML CUP MT SCH ×2 (08:26→22:42)
[2016-03-02] MEDS: CARBIDOPA/LEVODOPA 25 MG/100 MG TAB GT SCH ×4 (08:26→22:42)
[2016-03-02] MEDS: GABAPENTIN 300 MG CAP G-TUBE SCH ×2 (08:27→22:42)
[2016-03-02] MEDS: ARTIFICIAL TEARS OPTH SOLN 15 ML BTL EACH EYE SCH ×3 (08:27→17:57)
[2016-03-02] MEDS: LACTOBACILLUS ACIDOPHILUS TAB PO SCH ×3 (08:27→17:56)
[2016-03-02] MEDS: COLLAGENASE OINT 30 GM TUBE TOP SCH (08:27)
[2016-03-02] MEDS: PARoxetine HCL 20 MG TAB G-TUBE SCH (08:27)
[2016-03-02] MEDS: SODIUM CHLORIDE 0.9% FLUSH 5 ML FLUSH IVF SCH ×2 (08:28→22:43)
[2016-03-02 10:16] LABS: AUTOMATED NEUTROPHIL # 10.7 TH/MM3 (1.8-7.7); BASOPHIL # 0.1 TH/MM3 (0-0.2); BASOPHIL % 0.4 % (0.0-2.0); EOSINOPHIL # 0.2 TH/MM3 (0-0.4); EOSINOPHIL % 1.5 % (0.0-4.0); HEMATOCRIT 35.5 % (39.0-51.0); HEMO FLAGS DIFF FINAL; LYMPH % 9.7 % (9.0-44.0); LYMPHOCYTE # 1.3 TH/MM3 (1.0-4.8); MEAN CELL VOLUME 85.5 FL (80.0-100.0); MEAN CORPUSCULAR HEMOGLOBIN 26.7 PG (27.0-34.0); MEAN CORPUSCULAR HGB CONC 31.2 % (32.0-36.0); MONO % 7.6 % (0.0-8.0); NEUT % 80.8 % (16.0-70.0); PLATELET COUNT 193 TH/MM3 (150-450); RED BLOOD COUNT 4.15 MIL/MM3 (4.50-5.90); RED CELL DISTRIBUTION WIDTH 15.5 % (11.6-17.2); WHITE BLOOD COUNT 13.3 TH/MM3 (4.0-11.0)
[2016-03-02 10:51] LABS: ALKALINE PHOSPHATASE 52 U/L (45-117); ALT (GPT) 13 U/L (12-78); ANION GAP 8 MEQ/L (5-15); AST (GOT) 39 U/L (15-37); BICARBONATE 28.9 MEQ/L (21.0-32.0); BLOOD UREA NITROGEN 36 MG/DL (7-18); CHLORIDE 109 MEQ/L (98-107); GLOMERULAR FILTRATION RATE 166 ML/MIN (>89); MAGNESIUM 2.6 MG/DL (1.5-2.5); POTASSIUM 4.5 MEQ/L (3.5-5.1); SODIUM (NA) 146 MEQ/L (136-145); TOTAL BILIRUBIN ADULT 0.3 MG/DL (0.2-1.0)
--- NOTE | 2016-03-02 16:13 | HHI.IDPN ---
Subjective Subjective Remarks Patient known to me. ID reconsulted for new sepsis. Notes reviewed Tcurrent: 89 F No vomiting episodes. Tube feeds no residuals. UO ok. Trach on T-peice, 28% FiO2. Secretions thick, yellow and mehta at times, copious. BP ok Clinically stable. d/w RN Antibiotics Cefepime IV Vanco IV Lines Peripheral IV with no e/o infection Past Medical History reviewed Allergies: Coded Allergies: *MDRO Multi-Drug Resistant Organism (Verified Adverse Reaction, Unknown, ESBL, carbapenem resistant Pseudomonas, 01/13/16) ESBL E. coli (urine) - 02/19/2015; ESBL K. pneumoniae (sputum-06/18/15, 08/03/15, 09/20/15,10/12/15, 11/27/15, 12/26/15, 01/09/16), (urine-08/03/15 & 11/27/15), MRSA PCR POSITIVE - 03/20/2015 MDR-Pseudomonas (sputum)- 08/18/15, 09/20/15, 10/2015 (Carbapenem resistant) Objective . Vital Signs Date Time Temp Pulse Resp B/P Pulse Ox O2 Delivery O2 Flow Rate FiO2 03/02/16 13:18 97.0 76 18 106/61 93 03/02/16 09:26 100 T-piece 6.00 28 03/02/16 08:51 96.7 70 18 102/62 94 03/02/16 03:15 97.8 78 22 103/62 98 03/02/16 00:37 97.3 88 22 122/59 95 03/02/16 00:30 97 30 03/01/16 21:00 T-Piece 6.00 35 03/01/16 20:18 100.7 93 24 114/58 93 03/01/16 03/01/16 03/02/16 15:00 23:00 07:00 Intake Total 350 ml Output Total 200 ml 725 ml Balance -200 ml -375 ml IV Total 350 ml Output Urine Total 200 ml 725 ml # Bowel Movements 0 . Laboratory Tests Test 02/29/16 03/02/16 21:07 09:47 White Blood Count 17.6 TH/MM3 13.3 TH/MM3 Red Blood Count 4.66 MIL/MM3 4.15 MIL/MM3 Hemoglobin 12.6 GM/DL 11.1 GM/DL Hematocrit 39.4 % 35.5 % Mean Corpuscular Volume 84.6 FL 85.5 FL Mean Corpuscular Hemoglobin 27.1 PG 26.7 PG Mean Corpuscular Hemoglobin 32.0 % 31.2 % Concent Red Cell Distribution Width 15.7 % 15.5 % Platelet Count 238 TH/MM3 193 TH/MM3 Mean Platelet Volume 9.7 FL 10.3 FL Neutrophils (%) (Auto) 82.3 % 80.8 % Lymphocytes (%) (Auto) 8.1 % 9.7 % Monocytes (%) (Auto) 8.3 % 7.6 % Eosinophils (%) (Auto) 0.6 % 1.5 % Basophils (%) (Auto) 0.7 % 0.4 % Neutrophils # (Auto) 14.5 TH/MM3 10.7 TH/MM3 Lymphocytes # (Auto) 1.4 TH/MM3 1.3 TH/MM3 Monocytes # (Auto) 1.5 TH/MM3 1.0 TH/MM3 Eosinophils # (Auto) 0.1 TH/MM3 0.2 TH/MM3 Basophils # (Auto) 0.1 TH/MM3 0.1 TH/MM3 CBC Comment DIFF FINAL DIFF FINAL Differential Comment Laboratory Tests Test 02/29/16 03/02/16 21:07 09:47 Sodium Level 146 MEQ/L 146 MEQ/L Potassium Level 4.4 MEQ/L 4.5 MEQ/L Chloride Level 106 MEQ/L 109 MEQ/L Carbon Dioxide Level 33.4 MEQ/L 28.9 MEQ/L Anion Gap 7 MEQ/L 8 MEQ/L Blood Urea Nitrogen 38 MG/DL 36 MG/DL Creatinine 0.72 MG/DL 0.52 MG/DL Estimat Glomerular Filtration 114 ML/MIN 166 ML/MIN Rate Random Glucose 122 MG/DL 112 MG/DL Calcium Level 9.3 MG/DL 8.8 MG/DL Phosphorus Level 2.5 MG/DL 2.9 MG/DL Magnesium Level 2.5 MG/DL 2.6 MG/DL Total Bilirubin 0.3 MG/DL 0.3 MG/DL Aspartate Amino Transf 78 U/L 39 U/L (AST/SGOT) Alanine Aminotransferase 17 U/L 13 U/L (ALT/SGPT) Alkaline Phosphatase 67 U/L 52 U/L Total Protein 7.9 GM/DL 6.6 GM/DL Albumin 3.3 GM/DL 2.7 GM/DL Microbiology Date/Time Procedure Status Source Growth 02/29/16 21:00 Aerobic Blood Culture - Preliminary Resulted Blood Peripheral NO GROWTH IN 2 DAYS 02/29/16 21:00 Anaerobic Blood Culture - Preliminary Resulted Blood Peripheral NO GROWTH IN 2 DAYS 02/29/16 21:05 Aerobic Blood Culture - Preliminary Resulted Blood Peripheral NO GROWTH IN 2 DAYS 02/29/16 21:05 Anaerobic Blood Culture - Preliminary Resulted Blood Peripheral NO GROWTH IN 2 DAYS 03/01/16 13:25 Gram Stain - Final Resulted Sputum Endotracheal 03/01/16 13:25 Sputum Culture - Preliminary Resulted Pseudomonas Species 03/01/16 13:25 Urine Culture - Preliminary Resulted Urine Catheterized Urine Gram Negative [facility] Abdomen X-Ray 12/07/15 0600 Signed Impressions: Service Date/Time: Monday, December 07, 2015 03:40 - CONCLUSION: No dilated loops of small or large bowel. Tai Jaquez MD Chest X-Ray 12/07/15 0000 Signed Impressions: Service Date/Time: Monday, December 07, 2015 03:34 - CONCLUSION: Right lung is clear. Slight improvement of interstitial infiltrates left mid and lower lung. Tai Jaquez MD Abdomen X-Ray 12/06/15 0000 Signed Impressions: Service Date/Time: Sunday, December 06, 2015 08:05 - CONCLUSION: No acute disease. Erlin Barajas MD Abdomen Ultrasound 12/06/15 0000 Signed Impressions: Service Date/Time: Sunday, December 06, 2015 17:42 - CONCLUSION: 1. The gallbladder is unremarkable with no evidence of cholelithiasis. 2. Simple cyst in the left kidney. 3. Mild pyelocaliectasis in the right kidney. Salazar Thurman MD Chest X-Ray 12/04/15 0600 Signed Impressions: Service Date/Time: Friday, December 04, 2015 03:50 - CONCLUSION: Interstitial densities in the right lung. Néstor Matamoros MD Chest X-Ray 11/28/15 0000 Signed Impressions: Service Date/Time: Saturday, November 28, 2015 00:21 - CONCLUSION: No acute cardiopulmonary disease. Eugene Schmid MD Abdomen X-Ray 11/26/15 0000 Signed Impressions: Service Date/Time: November 12:34 - CONCLUSION: 1. Nonobstructive bowel gas pattern. 2. Stable position of gastrostomy tube. Multiple surgical screws secure the proximal left femur. 3. No obvious pneumoperitoneum on the single projection provided. Scott Goode MD Upper Extremity Ultrasound 10/13/15 0000 Signed Impressions: Service Date/Time: Tuesday, October 13, 2015 09:51 - CONCLUSION: 1. No evidence of deep venous thrombosis. John Anderson MD Renal Ultrasound 10/07/15 0000 Signed Impressions: Service Date/Time: Wednesday, October 07, 2015 18:29 - CONCLUSION: 1. No acute findings. 3.6 cm left renal cyst. Valdez catheter in bladder. Amaury Ellsworth MD Tunnelled Chest Tube Removal 08/05/15 1100 Signed Impressions: Service Date/Time: Wednesday, August 05, 2015 11:00 - CONCLUSION: Uncomplicated chest tube removal. Blaine Jackson MD Chest Tube Change 07/31/15 0000 Signed Impressions: Service Date/Time: Friday, July 31, 2015 14:34 - CONCLUSION: Uncomplicated reposition of previously placed chest tube as above. Blaine Jackson MD Chest Tube Insertion 07/30/15 0000 Signed Impressions: Service Date/Time: July 14:50 - CONCLUSION: Uncomplicated chest tube placement as above. Blaine Jackson MD Catheter Change 07/27/15 0000 Signed Impressions: Service Date/Time: Monday, July 27, 2015 14:43 - CONCLUSION: Uncomplicated gastrostomy tube exchange as above. Blaine Jackson MD Chest CT 07/11/15 Signed Impressions: Service Date/Time: Saturday, July 11, 2015 09:49 - CONCLUSION: Scattered patchy densities significantly improved from previous study. Tiny anterior right basilar pneumothorax. Right-sided chest tube in good position. Néstor Matamoros MD Head CT 06/18/151902 Signed Impressions: Service Date/Time: June 19:31 - CONCLUSION: Diffuse atrophy unchanged. No acute intracranial findings. Kush Briscoe MD Abdomen/Pelvis CT 06/18/151902 Signed Impressions: Service Date/Time: June 19:36 - CONCLUSION: 1. Chronic nonspecific urinary bladder wall thickening. Bladder collapsed with Valdez catheter in place. 2. Chronic bilateral mid to lower lung zone groundglass opacity. 3. Nonobstructing left renal calculus. 4. Distended rectum. Kush Briscoe MD Physical Exam GENERAL: No interaction, dyspneic. SKIN: Cool and moist. No generalized rash. HEENT: Somis conjunctivae, no icterus, moist mucosa. NECK: Trach site looks ok. Neck is supple RESPIRATORY: Coarse BS razia, with few rhonchi GASTROINTESTINAL: Abdomen soft, not distended. No guarding. PEG site looks okay. MUSCULOSKELETAL: No cyanosis No pedal edema. Contracted all 4 extremities. NEUROLOGICAL: Eyes open, Extremities contracted Peripheral IV line sites with no evidence of infection. ; Valdez in place, urine looks clear Assessment & Plan Remarks IMPRESSION New Sepsis source likely Tracheobronchitis. Other sources: CAUTI or Bacteremia History of PSAE ESBL cath associated UTI. S/P Rx Chronic respiratory failure on trach PSAE and ESBL Kleb in sputum in recent past. Chronic encephalopathy with underlying diagnosis of advanced dementia as well as advanced Parkinson's disease. Status post trach Status post gastrostomy tube with no evidence of infection. Stage II sacral decubitus ulcer present on admission. h/o Recurrent aspiration tube feed related in past. Recommendations Continue Cefepime IV Continue Vanco IV Follow cultures Follow clinically. Recommend once a month valdez change as for chronic patients. Will follow along with you. Trina Moss MD Mar 02, 2016 16:13
--- NOTE | 2016-03-02 18:16 | HHI.PR ---
Subjective Remarks Awake , and 0n a T bar FIO2 30 % . has no Fever . .On Bipap at HS. On IV antibiotics per ID. O2 Sat 97. Lethargic. No change overall. Objective Vital Signs Date Time Temp Pulse Resp B/P Pulse Ox O2 Delivery O2 Flow Rate FiO2 03/02/16 17:23 97.0 68 20 110/69 94 03/02/16 13:18 97.0 76 18 106/61 93 03/02/16 09:26 100 T-piece 6.00 28 03/02/16 08:51 96.7 70 18 102/62 94 03/02/16 03:15 97.8 78 22 103/62 98 03/02/16 00:37 97.3 88 22 122/59 95 03/02/16 00:30 97 30 03/01/16 21:00 T-Piece 6.00 35 03/01/16 20:18 100.7 93 24 114/58 93 I/O 03/01/16 03/01/16 03/01/16 03/02/16 03/02/16 03/02/16 07:00 15:00 23:00 07:00 15:00 23:00 Intake Total 2151 ml 350 ml 1178 ml Output Total 200 ml 725 ml Balance 2151 ml -200 ml -375 ml 1178 ml Intake Oral 0 ml IV Total 350 ml Tube Feeding 1651 ml 978 ml Tube Irrigant 500 ml Other 200 ml Output Urine Total 200 ml 725 ml # Bowel Movements 0 0 Result Diagram: 03/02/1647 03/02/1647 Objective Remarks This is a thin white male who is , awake with a trach tube in place. HEENT: Pupils are equal and reactive to light. CHEST:Decreased breath sounds,with Occ basal crackles.Bilateral wheeze. CARDIOVASCULAR: S1 and S2 is normal.No murmur. ABDOMEN: Soft, nondistended. BS +. He has a PEG and J tube in place. EXTREMITIES: Contractures.muscle wasting. NEURO: Awake and has weak extremities. Skin is warm. Assessment and Plan Assessment and Plan IMPRESSION 1. Chronic Respiratory failure. 2. Sepsis, Aspiration. 3. Left basal Pneumonia, Resolved 4. Basal pneumonia 5. Parkinson's disease 6. Dementia. 7. Severe Deconditioning. Plan : 1. Continue on Bipap 5/15, FIo2 30 % at 11 pm to 7 am. 2. Nebs Bid , duoneb. 3. Tube feeds at 40 CC 4. T Bar 35 % daytime. 5. CBC,BMP in am 6. Cont Trach toilet and lavage. 7. Antibiotics Vanco /Zosyn. 1 Darren Kiser MD Mar 02, 2016 18:15
--- NOTE | 2016-03-02 20:02 | HHI.PR ---
Subjective Remarks No fever since yesterday T max 101.0 patient is non verbal no reports of diarrhea no rash still thick secretions Objective Vitals Vital Signs Date Time Temp Pulse Resp B/P Pulse Ox O2 Delivery O2 Flow Rate FiO2 03/02/16 17:23 97.0 68 20 110/69 94 03/02/16 13:18 97.0 76 18 106/61 93 03/02/16 09:26 100 T-piece 6.00 28 03/02/16 08:51 96.7 70 18 102/62 94 03/02/16 03:15 97.8 78 22 103/62 98 03/02/16 00:37 97.3 88 22 122/59 95 03/02/16 00:30 97 30 03/01/16 21:00 T-Piece 6.00 35 03/01/16 20:18 100.7 93 24 114/58 93 I/O 03/01/16 03/01/16 03/01/16 03/02/16 03/02/16 03/02/16 07:00 15:00 23:00 07:00 15:00 23:00 Intake Total 2151 ml 350 ml 1178 ml 1018 ml Output Total 200 ml 725 ml Balance 2151 ml -200 ml -375 ml 1178 ml 1018 ml Intake Oral 0 ml IV Total 350 ml 450 ml Tube Feeding 1651 ml 978 ml 368 ml Tube Irrigant 500 ml Other 200 ml 200 ml Output Urine Total 200 ml 725 ml # Bowel Movements 0 0 Result Diagram: 03/02/16 0947 03/02/16 0947 Imaging Last Impressions Chest X-Ray 03/02/16 0600 Signed Impressions: Service Date/Time: Wednesday, March 02, 2016 06:03 - CONCLUSION: Hyperinflation which can be seen with COPD. Minimal density right upper lobe could be atelectasis or infiltrate. Néstor Matamoros MD Tube Change 02/26/16 0000 Signed Impressions: Service Date/Time: Friday, February 26, 2016 18:49 - CONCLUSION: Uncomplicated gastrojejunostomy tube exchange as above. Scott Goode MD Tube Check 02/12/16 0000 Signed Impressions: Service Date/Time: Friday, February 12, 2016 16:08 - CONCLUSION: Uncomplicated tube injection as above. Blaine Jackson MD Gastrostomy Tube Change 01/15/16 0000 Signed Impressions: Service Date/Time: Friday, January 15, 2016 12:28 - CONCLUSION: Successful GJ tube exchange as above. Scott Goode MD Abdomen X-Ray 01/12/16 1628 Signed Impressions: Service Date/Time: Tuesday, January 12, 2016 17:35 - CONCLUSION: No evidence of obstruction or free air. Reyes Jewell MD Abdomen Ultrasound 12/06/15 0000 Signed Impressions: Service Date/Time: Sunday, December 06, 2015 17:42 - CONCLUSION: 1. The gallbladder is unremarkable with no evidence of cholelithiasis. 2. Simple cyst in the left kidney. 3. Mild pyelocaliectasis in the right kidney. Salazar Thurman MD Upper Extremity Ultrasound 10/13/15 0000 Signed Impressions: Service Date/Time: Tuesday, October 13, 2015 09:51 - CONCLUSION: 1. No evidence of deep venous thrombosis. John Anderson MD Renal Ultrasound 10/07/15 0000 Signed Impressions: Service Date/Time: Wednesday, October 07, 2015 18:29 - CONCLUSION: 1. No acute findings. 3.6 cm left renal cyst. Putnam catheter in bladder. Amaury Ellsworth MD Tunnelled Chest Tube Removal 08/05/15 1100 Signed Impressions: Service Date/Time: Wednesday, August 05, 2015 11:00 - CONCLUSION: Uncomplicated chest tube removal. Blaine Jackson MD Chest Tube Change 07/31/15 0000 Signed Impressions: Service Date/Time: Friday, July 31, 2015 14:34 - CONCLUSION: Uncomplicated reposition of previously placed chest tube as above. Blaine Jackson MD Chest Tube Insertion 07/30/15 0000 Signed Impressions: Service Date/Time: July 14:50 - CONCLUSION: Uncomplicated chest tube placement as above. Blaine Jackson MD Catheter Change 07/27/15 0000 Signed Impressions: Service Date/Time: Monday, July 27, 2015 14:43 - CONCLUSION: Uncomplicated gastrostomy tube exchange as above. Blaine Jackson MD Chest CT 07/11/15 0000 Signed Impressions: Service Date/Time: Saturday, July 11, 2015 09:49 - CONCLUSION: Scattered patchy densities significantly improved from previous study. Tiny anterior right basilar pneumothorax. Right-sided chest tube in good position. Néstor Matamoros MD Head CT 06/18/151902 Signed Impressions: Service Date/Time: June 19:31 - CONCLUSION: Diffuse atrophy unchanged. No acute intracranial findings. Kush Briscoe MD Abdomen/Pelvis CT 06/18/151902 Signed Impressions: Service Date/Time: June 19:36 - CONCLUSION: 1. Chronic nonspecific urinary bladder wall thickening. Bladder collapsed with Putnam catheter in place. 2. Chronic bilateral mid to lower lung zone groundglass opacity. 3. Nonobstructing left renal calculus. 4. Distended rectum. Kush Briscoe MD Objective Remarks GENERAL: Cachectic patient with limbs contracted. Eyes open. SKIN: Warm and dry. HEAD: Normocephalic. EYES: Left erythematous and with drainage. NECK: 8.0 Distal XLT trach in place CARDIOVASCULAR: Tachycardic without murmurs, gallops, or rubs. RESPIRATORY: Coarse breath sounds. GASTROINTESTINAL: Abdomen soft, non-tender, nondistended. MUSCULOSKELETAL: Contracted limbs. Wound on lower back currently bandaged. NEURO: Eyes are open, not tracking. Procedures 07/26- PEG replacement 07/29- right pigtail catheter placement for new pneumothorax Medications and IVs Current Medications Medications (Trade) Dose Ordered Sig/Jassi Route Start Time Stop Time Status Last Admin (NS Flush) 2 ml UNSCH PRN IVF 06/18/15 21:30 02/01/16 03:04 (NS Flush) 2 ml BID IVF 06/19/15 09:00 03/02/16 08:28 (Tylenol 650 Mg/ 20 ml Liq) 650 mg Q6H PRN TUBE 06/18/15 21:30 03/02/16 03:37 (Tears Naturale Opth Soln) 1 drop TID EACH EYE 06/19/15 09:00 03/02/16 17:57 (Zofran Inj) 4 mg Q6H PRN IV 06/18/15 21:30 11/26/15 11:54 (Neurontin) 300 mg BID G-TUBE 06/19/15 09:00 03/02/16 08:27 (Lactinex) 1 tab TID PO 5/13/16 09:00 03/02/16 17:56 (Paxil) 20 mg DAILY G-TUBE 06/19/15 09:00 03/02/16 08:27 (Pill Splitter) 1 ea UNSCH PRN OTHER 06/19/15 03:30 06/28/15 09:35 (Prevacid Odt) 30 mg DAILY NG 07/08/15 09:00 03/02/16 08:26 (Morphine Inj) 2 mg Q3H PRN IV PUSH 07/28/15 00:45 02/27/16 02:32 (Lovenox Inj) 40 mg Q24H SQ 08/09/15 22:00 03/01/16 21:18 ([place] 5-325 Mg) 1 tab Q6H PRN PO 08/15/15 15:45 02/29/16 03:23 (Sublimaze Inj) 50 mcg Q2H PRN IV PUSH 08/15/15 15:45 01/15/16 13:10 (Santyl Oint) 1 applic DAILY TOP 08/21/15 09:00 03/02/16 08:27 (Levsin Liq) 0.125 mg Q4H PRN PO 09/06/15 11:00 03/02/16 00:04 (D50w (Vial) Inj) 25 ml UNSCH PRN IV PUSH 10/12/15 17:30 01/06/16 20:14 (Glucagon Inj) 1 mg UNSCH PRN OTHER 10/12/15 17:30 (NovoLIN R SUPPLEMENTAL SCALE) 1 Q6H SQ 10/12/15 18:00 03/01/16 05:16 (Brethine Inj) 1 mg UNSCH PRN SQ 12/06/15 06:45 (Ativan Inj) 1 mg Q3HR PRN IVP 12/15/15 17:00 02/27/16 02:31 (Deltasone) 2.5 mg DAILY PO 12/23/15 09:00 03/02/16 08:26 (Free Water) 200 ml Q6HR G-TUBE 01/03/16 18:00 03/02/16 17:56 (KCl 40 Meq/30 ml Liq) 20 meq DAILY GT 01/08/16 17:00 03/02/16 08:26 (Urecholine) 10 mg Q8HR PO 01/13/16 22:00 03/02/16 13:18 (Sinemet 25-100 Mg) 1.5 tab QID GT 01/14/16 21:00 03/02/16 17:56 (Peridex 0.12% Liq) 15 ml BID@08,20 MT 02/04/16 10:20 03/02/16 08:26 Polymyxin/ Trimethoprim Sulfate 1 drop 1 drop Q6HR LEFT EYE 02/25/16 18:00 03/03/16 07:00 03/02/16 17:57 Cefepime HCl 2000 mg/Sodium Chloride 100 ml @ 200 mls/hr Q8H IV 03/01/16 10:30 03/02/16 17:56 Pharmacy Profile Note 0 ml @ 0 mls/hr UNSCH OTHER 03/01/16 14:15 (Vancomycin Inj/ NS 250 ml Inj) 257.5 ml @ 250 mls/hr Q12H IV 03/02/16 02:00 03/02/16 13:19 Miscellaneous Information SPECIFIC LAB TO BE DRAWN:VANCOMYCIN TROUGH DATE TO... ONCE ONCE XX 03/03/16 13:45 03/03/16 13:46 (Sodium Chloride 23.4% Inj/Sterile Water For Inj) 1,009.625 ml @ 84 mls/hr Q12H2M IV 03/02/16 20:00 UNV Urinary Catheter: Yes Assessment to: Continue Putnam insert reason: Prolonged Immobilization A/P Problem List: (1) Sepsis ICD Code: A41.9 Status: Acute Plan: Due to HCAP. CXR on 03/02 shows Right upper lobe infiltrate. Continue IV fluids, IV Vancomycin and IV antibiotics. Appreciate ID input. Sputum culture is growing pseudomonas, urine culture is growing gram negative rods monitor temps montor vital signs (2) HCAP (healthcare-associated pneumonia) ICD Code: J18.9 Status: Acute Plan: As above (3) Fever ICD Code: R50.9 Status: Acute Plan: Due to sepsis as above. Still persistnt with a Tmax of 101 Continue tylenol as needed (4) Sepsis due to urinary tract infection ICD Code: A41.9 Status: Resolved Plan: ID consulted. The patient was on IV antibiotics as per infectious disease. Status post Zosyn. Status post vancomycin and Levaquin as well as tobramycin nebulization discontinued 02/11/16. ID was reconsulted for UTI. Treat with fluconazole with a stop date on 02/27/16. (5) Chronic respiratory failure ICD Code: J96.10 Status: Chronic Plan: Patient on tracheostomy. Tolerating TPs. Status post recurrent right pneumothorax status post pigtail catheter removal. Last chest x-ray was stable on 02/23/16 Pulmonary following. Continue BiPAP at night. Suction secretions as needed Patient on by mouth steroids, on prednisone 2.5 mg by mouth daily Continue DuoNeb's 4 times a day and when needed. Status post colistin nebs and Solu-Medrol. (6) Parkinson disease ICD Code: G20 Status: Chronic Plan: Gosia Sinemet. Seems to be stable. (7) UTI (urinary tract infection) ICD Code: N39.0 Status: Resolved Plan: ID consulted. Status post treatment with fluconazole. Change Putnam catheter monthly. (8) Encephalopathy ICD Code: G93.40 Status: Resolved Plan: Likely metabolic encephalopathy. Neuro was consulted. CT head 06/18/15 showed diffuse atrophy unchanged. No acute intrapelvic findings. The patient is alert and nonverbal. Parkinson's medications were increased by neurology. Zyprexa was discontinued in 02/25. Continue to wean clonazepam. Change to every 48 hours on 02/13. He was discontinued on 02/23. (9) Feeding tube obstruction ICD Code: T85.598A Status: Resolved Plan: Feeding tube working well. Patient is status post PEG for moderate port protein, malnutrition. It was some concerns for hematemesis on 12/05. GI evaluated patient. Gastric was negative and hemoglobin has been stable. However J-tube was not function 02/25 and he was replaced by interventional radiology. Continue senna and Colace for bowel regimen here in Continue PPI Continue to feedings which the patient tolerating well. (10) Conjunctivitis ICD Code: H10.9 Status: Resolved Plan: Seems to be stable. Appetite drainage and erythema have resolved. Patient being treated with Polytrim ophthalmic solution which will be discontinued on 03/02. Assessment and Plan GI prophylaxis: PPI. Stool softener. When necessary for constipation. DVT prophylaxis: Lovenox Discharge Planning Awaiting clinical improvement. Continue to monitor in the medical floor. Problem Qualifiers (1) Fever: Qualified Code: R50.9 - Fever, unspecified fever cause (2) Chronic respiratory failure: Qualified Code: J96.10 - Chronic respiratory failure, unspecified whether with hypoxia or hypercapnia (3) UTI (urinary tract infection): Qualified Code: N30.00 - Acute cystitis without hematuria (4) Conjunctivitis: Qualified Code: H10.9 - Conjunctivitis of left eye, unspecified conjunctivitis type Shon Jordan MD Mar 02, 2016 20:02
[2016-03-02] MEDS: SODIUM CHLORIDE 23.4% INJ 38.5 MEQ in WATER STERILE FOR INJ 1,000 ML IV SCH (22:42)
[2016-03-02] MEDS: ENOXAPARIN SODIUM 40 MG/0.4 ML SYRINGE SQ SCH (22:43)
[2016-03-02] MEDS: ACETAMINOPHEN/HYDROcodone 325 MG/5 MG TAB PO PRN (22:49)
[2016-03-03] VITALS (8 sets, daily range): BP systolic 96–128; BP diastolic 51–84; PULSE 58–86; RESP 18–24; TEMP 96.1–98.4; O2SAT 94–99
[2016-03-03] MEDS: CEFEPIME INJ 2,000 MG in SODIUM CHLORIDE 0.9% INJ 100 ML IV SCH ×3 (02:28→17:55)
[2016-03-03] MEDS: VANCOMYCIN INJ 750 MG in SODIUM CHLOR 0.9% 250 ML INJ 250 ML IV SCH (02:28)
[2016-03-03] MEDS: INSULIN NovoLIN REGULAR SUPPLEMENTAL SCALE SQ SCH ×2 (06:00→12:00)
[2016-03-03] MEDS: POLYMYXIN/TRIMETHOPRIM OPHT SOLN 10 ML BTL LEFT EYE SCH (06:17)
[2016-03-03] MEDS: BETHANECHOL CHL 10 MG TAB PO SCH ×2 (06:17→12:49)
[2016-03-03] MEDS: FREE WATER G-TUBE SCH ×3 (06:18→17:59)
[2016-03-03 07:41] LABS: AUTOMATED NEUTROPHIL # 8.5 TH/MM3 (1.8-7.7); BASOPHIL # 0.1 TH/MM3 (0-0.2); BASOPHIL % 0.5 % (0.0-2.0); EOSINOPHIL # 0.5 TH/MM3 (0-0.4); EOSINOPHIL % 4.2 % (0.0-4.0); HEMATOCRIT 35.1 % (39.0-51.0); HEMO FLAGS DIFF FINAL; LYMPH % 10.8 % (9.0-44.0); LYMPHOCYTE # 1.2 TH/MM3 (1.0-4.8); MEAN CELL VOLUME 86.5 FL (80.0-100.0); MEAN CORPUSCULAR HEMOGLOBIN 27.1 PG (27.0-34.0); MEAN CORPUSCULAR HGB CONC 31.4 % (32.0-36.0); MONO % 7.8 % (0.0-8.0); NEUT % 76.7 % (16.0-70.0); PLATELET COUNT 156 TH/MM3 (150-450); RED BLOOD COUNT 4.06 MIL/MM3 (4.50-5.90); RED CELL DISTRIBUTION WIDTH 15.5 % (11.6-17.2)
[2016-03-03 08:02] LABS: ALKALINE PHOSPHATASE 52 U/L (45-117); ALT (GPT) 27 U/L (12-78); ANION GAP 5 MEQ/L (5-15); AST (GOT) 38 U/L (15-37); BICARBONATE 28.5 MEQ/L (21.0-32.0); BLOOD UREA NITROGEN 31 MG/DL (7-18); CHLORIDE 109 MEQ/L (98-107); GLOMERULAR FILTRATION RATE 192 ML/MIN (>89); MAGNESIUM 2.3 MG/DL (1.5-2.5); POTASSIUM 4.2 MEQ/L (3.5-5.1); SODIUM (NA) 142 MEQ/L (136-145); TOTAL BILIRUBIN ADULT 0.5 MG/DL (0.2-1.0)
[2016-03-03] MEDS: SODIUM CHLORIDE 23.4% INJ 38.5 MEQ in WATER STERILE FOR INJ 1,000 ML IV SCH ×3 (08:02→12:48)
[2016-03-03] MEDS: CHLORHEXIDINE GLUCONATE 0.12% 30 ML CUP MT SCH ×2 (09:05→22:24)
[2016-03-03] MEDS: PARoxetine HCL 20 MG TAB G-TUBE SCH (09:05)
[2016-03-03] MEDS: LACTOBACILLUS ACIDOPHILUS TAB PO SCH ×3 (09:05→17:57)
[2016-03-03] MEDS: POTASSIUM CL 40 MEQ/30 ML LIQ UDC GT SCH (09:05)
[2016-03-03] MEDS: LANSOPRAZOLE SOLUTAB 30 MG TAB NG SCH (09:06)
[2016-03-03] MEDS: predniSONE 5 MG TAB PO SCH (09:06)
[2016-03-03] MEDS: GABAPENTIN 300 MG CAP G-TUBE SCH ×2 (09:06→22:25)
[2016-03-03] MEDS: CARBIDOPA/LEVODOPA 25 MG/100 MG TAB GT SCH ×4 (09:06→22:24)
[2016-03-03] MEDS: COLLAGENASE OINT 30 GM TUBE TOP SCH (09:07)
[2016-03-03] MEDS: ARTIFICIAL TEARS OPTH SOLN 15 ML BTL EACH EYE SCH ×3 (09:07→17:58)
[2016-03-03] MEDS: SODIUM CHLORIDE 0.9% FLUSH 5 ML FLUSH IVF SCH ×2 (09:07→21:00)
[2016-03-03] MEDS ORDERED: PHARMACY ORDERED LAB XX ONE (13:45)
--- NOTE | 2016-03-03 14:34 | HHI.PR ---
Objective Vitals Vital Signs Date Time Temp Pulse Resp B/P Pulse Ox O2 Delivery O2 Flow Rate FiO2 03/03/16 08:00 97.6 80 18 128/84 96 03/03/16 05:24 94 30 03/03/16 04:00 97.5 80 18 96/51 96 03/03/16 02:01 24 03/03/16 01:33 95 30 03/03/16 00:00 97.0 86 20 111/75 99 03/02/16 22:00 94 30 03/02/16 20:00 99.9 76 18 114/57 98 03/02/16 17:23 97.0 68 20 110/69 94 I/O 03/02/16 03/02/16 03/02/16 03/03/16 03/03/16 03/03/16 07:00 15:00 23:00 07:00 15:00 23:00 Intake Total 350 ml 1178 ml 1018 ml Output Total 725 ml 700 ml Balance -375 ml 1178 ml 1018 ml -700 ml IV Total 350 ml 450 ml Tube Feeding 978 ml 368 ml Other 200 ml 200 ml Output Urine Total 725 ml 700 ml Result Diagram: 03/03/1671603/03/16716 Objective Remarks GENERAL: Cachectic patient with limbs contracted. Eyes open. SKIN: Warm and dry. HEAD: Normocephalic. EYES: Left erythematous and with drainage. NECK: 8.0 Distal XLT trach in place CARDIOVASCULAR: Tachycardic without murmurs, gallops, or rubs. RESPIRATORY: Coarse breath sounds. GASTROINTESTINAL: Abdomen soft, non-tender, nondistended. MUSCULOSKELETAL: Contracted limbs. Wound on lower back currently bandaged. NEURO: Eyes are open, not tracking. Procedures 07/26- PEG replacement 07/29- right pigtail catheter placement for new pneumothorax A/P Problem List: (1) Sepsis ICD Code: A41.9 Status: Acute (2) HCAP (healthcare-associated pneumonia) ICD Code: J18.9 Status: Acute (3) Fever ICD Code: R50.9 Status: Acute (4) Sepsis due to urinary tract infection ICD Code: A41.9 Status: Resolved (5) Chronic respiratory failure ICD Code: J96.10 Status: Chronic (6) Parkinson disease ICD Code: G20 Status: Chronic (7) UTI (urinary tract infection) ICD Code: N39.0 Status: Resolved (8) Encephalopathy ICD Code: G93.40 Status: Resolved (9) Feeding tube obstruction ICD Code: T85.598A Status: Resolved (10) Conjunctivitis ICD Code: H10.9 Status: Resolved Assessment and Plan GI prophylaxis: PPI. Stool softener. When necessary for constipation. DVT prophylaxis: Lovenox Discharge Planning Awaiting clinical improvement. Continue to monitor in the medical floor. Problem Qualifiers (1) Fever: Qualified Code: R50.9 - Fever, unspecified fever cause (2) Chronic respiratory failure: Qualified Code: J96.10 - Chronic respiratory failure, unspecified whether with hypoxia or hypercapnia (3) UTI (urinary tract infection): Qualified Code: N30.00 - Acute cystitis without hematuria (4) Conjunctivitis: Qualified Code: H10.9 - Conjunctivitis of left eye, unspecified conjunctivitis type Shon Jordan MD Mar 03, 2016 14:34
[2016-03-03] MEDS ORDERED: SODIUM CHLORID 0.9% 500 ML INJ 500 ML IV ONE (16:45)
--- NOTE | 2016-03-03 16:52 | HHI.PR ---
Subjective Remarks Patient is now more awake, tries to answer back although not able to produce any sound No reports of diarrhea Sodium is trending down WBC trending down Patient had an episode of low BP with a blood pressure of 96/51 at 4 AM Objective Vitals Vital Signs Date Time Temp Pulse Resp B/P Pulse Ox O2 Delivery O2 Flow Rate FiO2 03/03/16 12:00 98.4 58 24 103/57 96 03/03/16 08:00 97.6 80 18 128/84 96 03/03/16 05:24 94 30 03/03/16 04:00 97.5 80 18 96/51 96 03/03/16 02:01 24 03/03/16 01:33 95 30 03/03/16 00:00 97.0 86 20 111/75 99 03/02/16 22:00 94 30 03/02/16 20:00 99.9 76 18 114/57 98 03/02/16 17:23 97.0 68 20 110/69 94 I/O 03/02/16 03/02/16 03/02/16 03/03/16 03/03/16 03/03/16 06:59 14:59 22:59 06:59 14:59 22:59 Intake Total 350 ml 1178 ml 1018 ml Output Total 725 ml 700 ml 600 ml Balance -375 ml 1178 ml 1018 ml -700 ml -600 ml IV Total 350 ml 450 ml Tube Feeding 978 ml 368 ml Other 200 ml 200 ml Output Urine Total 725 ml 700 ml 600 ml Result Diagram: 03/03/16 0717 03/03/16 0717 Imaging Last Impressions Chest X-Ray 03/02/16 0600 Signed Impressions: Service Date/Time: Wednesday, March 02, 2016 06:03 - CONCLUSION: Hyperinflation which can be seen with COPD. Minimal density right upper lobe could be atelectasis or infiltrate. Néstor Matamoros MD Tube Change 02/26/16 0000 Signed Impressions: Service Date/Time: Friday, February 26, 2016 18:49 - CONCLUSION: Uncomplicated gastrojejunostomy tube exchange as above. Scott Goode MD Tube Check 02/12/16 0000 Signed Impressions: Service Date/Time: Friday, February 12, 2016 16:08 - CONCLUSION: Uncomplicated tube injection as above. Blaine Jackson MD Gastrostomy Tube Change 01/15/16 0000 Signed Impressions: Service Date/Time: Friday, January 15, 2016 12:28 - CONCLUSION: Successful GJ tube exchange as above. Scott Goode MD Abdomen X-Ray 01/12/16 1628 Signed Impressions: Service Date/Time: Tuesday, January 12, 2016 17:35 - CONCLUSION: No evidence of obstruction or free air. Reyes Jewell MD Abdomen Ultrasound 12/06/15 0000 Signed Impressions: Service Date/Time: Sunday, December 06, 2015 17:42 - CONCLUSION: 1. The gallbladder is unremarkable with no evidence of cholelithiasis. 2. Simple cyst in the left kidney. 3. Mild pyelocaliectasis in the right kidney. Salazar Thurman MD Upper Extremity Ultrasound 10/13/15 0000 Signed Impressions: Service Date/Time: Tuesday, October 13, 2015 09:51 - CONCLUSION: 1. No evidence of deep venous thrombosis. John Anderson MD Renal Ultrasound 10/07/15 0000 Signed Impressions: Service Date/Time: Wednesday, October 07, 2015 18:29 - CONCLUSION: 1. No acute findings. 3.6 cm left renal cyst. Putnam catheter in bladder. Amaury Ellsworth MD Tunnelled Chest Tube Removal 08/05/15 1100 Signed Impressions: Service Date/Time: Wednesday, August 05, 2015 11:00 - CONCLUSION: Uncomplicated chest tube removal. Blaine Jackson MD Chest Tube Change 07/31/15 0000 Signed Impressions: Service Date/Time: Friday, July 31, 2015 14:34 - CONCLUSION: Uncomplicated reposition of previously placed chest tube as above. Blaine Jackson MD Chest Tube Insertion 07/30/15 0000 Signed Impressions: Service Date/Time: July 14:50 - CONCLUSION: Uncomplicated chest tube placement as above. Blaine Jackson MD Catheter Change 07/27/15 0000 Signed Impressions: Service Date/Time: Monday, July 27, 2015 14:43 - CONCLUSION: Uncomplicated gastrostomy tube exchange as above. Blaine Jackson MD Chest CT 07/11/15 0000 Signed Impressions: Service Date/Time: Saturday, July 11, 2015 09:49 - CONCLUSION: Scattered patchy densities significantly improved from previous study. Tiny anterior right basilar pneumothorax. Right-sided chest tube in good position. Néstor Matamoros MD Head CT 06/18/151902 Signed Impressions: Service Date/Time: June 19:31 - CONCLUSION: Diffuse atrophy unchanged. No acute intracranial findings. Kush Briscoe MD Abdomen/Pelvis CT 06/18/151902 Signed Impressions: Service Date/Time: June 19:36 - CONCLUSION: 1. Chronic nonspecific urinary bladder wall thickening. Bladder collapsed with Putnam catheter in place. 2. Chronic bilateral mid to lower lung zone groundglass opacity. 3. Nonobstructing left renal calculus. 4. Distended rectum. Kush Briscoe MD Objective Remarks GENERAL: Cachectic patient with limbs contracted. Eyes open. SKIN: Warm and dry. HEAD: Normocephalic. EYES: Left erythematous and with drainage. NECK: 8.0 Distal XLT trach in place CARDIOVASCULAR: Tachycardic without murmurs, gallops, or rubs. RESPIRATORY: Coarse breath sounds. GASTROINTESTINAL: Abdomen soft, non-tender, nondistended. MUSCULOSKELETAL: Contracted limbs. Wound on lower back currently bandaged. NEURO: Eyes are open, not tracking. Procedures 07/26- PEG replacement 07/29- right pigtail catheter placement for new pneumothorax Medications and IVs Current Medications Medications (Trade) Dose Ordered Sig/Jassi Route Start Time Stop Time Status Last Admin (NS Flush) 2 ml UNSCH PRN IVF 06/18/15 21:30 02/01/16 03:04 (NS Flush) 2 ml BID IVF 06/19/15 09:00 03/03/16 09:07 (Tylenol 650 Mg/ 20 ml Liq) 650 mg Q6H PRN TUBE 06/18/15 21:30 03/02/16 03:37 (Tears Naturale Opth Soln) 1 drop TID EACH EYE 06/19/15 09:00 03/03/16 12:49 (Zofran Inj) 4 mg Q6H PRN IV 06/18/15 21:30 11/26/15 11:54 (Neurontin) 300 mg BID G-TUBE 06/19/15 09:00 03/03/16 09:06 (Lactinex) 1 tab TID PO 06/19/15 09:00 03/03/16 12:49 (Paxil) 20 mg DAILY G-TUBE 06/19/15 09:00 03/03/16 09:05 (Pill Splitter) 1 ea UNSCH PRN OTHER 06/19/15 03:30 06/28/15 09:35 (Prevacid Odt) 30 mg DAILY NG 07/08/15 09:00 03/03/16 09:06 (Morphine Inj) 2 mg Q3H PRN IV PUSH 07/28/15 00:45 02/27/16 02:32 (Lovenox Inj) 40 mg Q24H SQ 08/09/15 22:00 03/02/16 22:43 (Hawley 5-325 Mg) 1 tab Q6H PRN PO 08/15/15 15:45 03/02/16 22:49 (Sublimaze Inj) 50 mcg Q2H PRN IV PUSH 08/15/15 15:45 01/15/16 13:10 (Santyl Oint) 1 applic DAILY TOP 08/21/15 09:00 03/03/16 09:07 (Levsin Liq) 0.125 mg Q4H PRN PO 09/06/15 11:00 03/02/16 00:04 (Brethine Inj) 1 mg UNSCH PRN SQ 12/06/15 06:45 (Ativan Inj) 1 mg Q3HR PRN IVP 12/15/15 17:00 02/27/16 02:31 (Deltasone) 2.5 mg DAILY PO 12/23/15 09:00 03/03/16 09:06 (Free Water) 200 ml Q6HR G-TUBE 01/03/16 18:00 03/03/16 12:47 (KCl 40 Meq/30 ml Liq) 20 meq DAILY GT 01/08/16 17:00 03/03/16 09:05 (Urecholine) 10 mg Q8HR PO 01/13/16 22:00 03/03/16 12:49 (Sinemet 25-100 Mg) 1.5 tab QID GT 01/14/16 21:00 03/03/16 12:55 Chlorhexidine Gluconate 15 ml 15 ml BID@08,20 MT 02/04/16 10:20 03/03/16 09:05 Cefepime HCl 2000 mg/Sodium Chloride 100 ml @ 200 mls/hr Q8H IV 03/01/16 10:30 03/03/16 10:12 Pharmacy Profile Note 0 ml @ 0 mls/hr UNSCH OTHER 03/01/16 14:15 Vancomycin HCl 750 mg/Sodium Chloride 257.5 ml @ 250 mls/hr Q12H IV 03/02/16 02:00 03/03/16 02:28 (Sodium Chloride 23.4% Inj/Sterile Water For Inj) 1,009.625 ml @ 84 mls/hr Q12H2M IV 03/02/16 20:00 03/03/16 12:48 Urinary Catheter: Yes Assessment to: Continue Putnam insert reason: Prolonged Immobilization A/P Problem List: (1) Sepsis ICD Code: A41.9 Status: Acute Plan: Due to HCAP. CXR on 03/02 shows Right upper lobe infiltrate. Appreciate ID input. Sputum culture is growing pseudomonas, urine culture is growing gram negative rods monitor temps montor vital signs Continue IV fluids, IV antibiotics as per ID recommendations. The patient is currently on IV vancomycin, cefepime and tobramycin. (2) HCAP (healthcare-associated pneumonia) ICD Code: J18.9 Status: Acute Plan: As above Pulmonary following, recommendations greatly appreciated. (3) Fever ICD Code: R50.9 Status: Acute Plan: Due to sepsis as above. Still persistnt with a Tmax of 101 Continue tylenol as needed (4) Sepsis due to urinary tract infection ICD Code: A41.9 Status: Resolved Plan: ID consulted. The patient was on IV antibiotics as per infectious disease. Status post Zosyn. Status post vancomycin and Levaquin as well as tobramycin nebulization discontinued 02/11/16. ID was reconsulted for UTI. Treat with fluconazole with a stop date on 02/27/16. (5) Chronic respiratory failure ICD Code: J96.10 Status: Chronic Plan: Patient on tracheostomy. Tolerating TPs. Status post recurrent right pneumothorax status post pigtail catheter removal. Last chest x-ray was stable on 02/23/16 Pulmonary following. Continue BiPAP at night. Suction secretions as needed Patient on by mouth steroids, on prednisone 2.5 mg by mouth daily Continue DuoNeb's 4 times a day and when needed. Status post colistin nebs and Solu-Medrol. (6) Parkinson disease ICD Code: G20 Status: Chronic Plan: Continue Sinemet. Seems to be stable. (7) UTI (urinary tract infection) ICD Code: N39.0 Status: Resolved Plan: ID consulted. Status post treatment with fluconazole. Change Putnam catheter monthly. (8) Encephalopathy ICD Code: G93.40 Status: Resolved Plan: Likely metabolic encephalopathy. Neuro was consulted. CT head 06/18/15 showed diffuse atrophy unchanged. No acute intrapelvic findings. The patient is alert and nonverbal. Parkinson's medications were increased by neurology. Zyprexa was discontinued in 02/25. Continue to wean clonazepam. Change to every 48 hours on 02/13. He was discontinued on 02/23. (9) Feeding tube obstruction ICD Code: T85.598A Status: Resolved Plan: Feeding tube working well. Patient is status post PEG for moderate port protein, malnutrition. It was some concerns for hematemesis on 12/05. GI evaluated patient. Gastric was negative and hemoglobin has been stable. However J-tube was not function 02/25 and he was replaced by interventional radiology. Continue senna and Colace for bowel regimen here in Continue PPI Continue to feedings which the patient tolerating well. (10) Conjunctivitis ICD Code: H10.9 Status: Resolved Plan: I drainage and erythema have resolved. Patient being treated with Polytrim ophthalmic solution which will be discontinued on 03/02. Assessment and Plan GI prophylaxis: PPI. Stool softener. When necessary for constipation. DVT prophylaxis: Lovenox Discharge Planning Awaiting clinical improvement. Continue to monitor in the medical floor. Problem Qualifiers (1) Fever: Qualified Code: R50.9 - Fever, unspecified fever cause (2) Chronic respiratory failure: Qualified Code: J96.10 - Chronic respiratory failure, unspecified whether with hypoxia or hypercapnia (3) UTI (urinary tract infection): Qualified Code: N30.00 - Acute cystitis without hematuria (4) Conjunctivitis: Qualified Code: H10.9 - Conjunctivitis of left eye, unspecified conjunctivitis type Shon Jordan MD Mar 03, 2016 16:52
--- NOTE | 2016-03-03 18:56 | HHI.IDPN ---
Subjective Subjective Remarks is 55 y/o CM with multiple medical problems.Chronic encephalopathy with underlying diagnosis of advanced dementia as well as advanced Parkinson's disease. Status post trach, Status post gastrostomy tube, sacral decubitus ulcer, h/o Recurrent aspiration tube feed related in past. Notes reviewed Afebrile. No vomiting episodes. Tube feeds no residuals. UO ok. Trach on T-peice, 28% FiO2. Secretions thick, yellow and mehta at times, copious. BP ok Clinically stable. d/w RN Antibiotics Cefepime IV Vanco IV Lines Peripheral IV with no e/o infection Past Medical History reviewed Allergies: Coded Allergies: *MDRO Multi-Drug Resistant Organism (Verified Adverse Reaction, Unknown, ESBL, carbapenem resistant Pseudomonas, 01/13/16) ESBL E. coli (urine) - 02/19/2015; ESBL K. pneumoniae (sputum-06/18/15, 08/03/15, 09/20/15,10/12/15, 11/27/15, 12/26/15, 01/09/16), (urine-08/03/15 & 11/27/15), MRSA PCR POSITIVE - 03/20/2015 MDR-Pseudomonas (sputum)- 08/18/15, 09/20/15, 10/2015 (Carbapenem resistant) Objective . Vital Signs Date Time Temp Pulse Resp B/P Pulse Ox O2 Delivery O2 Flow Rate FiO2 03/03/16 17:14 96.7 65 20 100/60 97 03/03/16 12:00 98.4 58 24 103/57 96 03/03/16 08:00 97.6 80 18 128/84 96 03/03/16 05:24 94 30 03/03/16 04:00 97.5 80 18 96/51 96 03/03/16 02:01 24 03/03/16 01:33 95 30 03/03/16 00:00 97.0 86 20 111/75 99 03/02/16 22:00 94 30 03/02/16 20:00 99.9 76 18 114/57 98 03/02/16 03/02/16 03/03/16 15:00 23:00 07:00 Intake Total 1178 ml 1018 ml Output Total 700 ml Balance 1178 ml 1018 ml -700 ml IV Total 450 ml Tube Feeding 978 ml 368 ml Other 200 ml 200 ml Output Urine Total 700 ml . Laboratory Tests Test 03/02/16 03/03/16 09:47 07:17 White Blood Count 13.3 TH/MM3 11.0 TH/MM3 Red Blood Count 4.15 MIL/MM3 4.06 MIL/MM3 Hemoglobin 11.1 GM/DL 11.0 GM/DL Hematocrit 35.5 % 35.1 % Mean Corpuscular Volume 85.5 FL 86.5 FL Mean Corpuscular Hemoglobin 26.7 PG 27.1 PG Mean Corpuscular Hemoglobin 31.2 % 31.4 % Concent Red Cell Distribution Width 15.5 % 15.5 % Platelet Count 193 TH/MM3 156 TH/MM3 Mean Platelet Volume 10.3 FL 10.2 FL Neutrophils (%) (Auto) 80.8 % 76.7 % Lymphocytes (%) (Auto) 9.7 % 10.8 % Monocytes (%) (Auto) 7.6 % 7.8 % Eosinophils (%) (Auto) 1.5 % 4.2 % Basophils (%) (Auto) 0.4 % 0.5 % Neutrophils # (Auto) 10.7 TH/MM3 8.5 TH/MM3 Lymphocytes # (Auto) 1.3 TH/MM3 1.2 TH/MM3 Monocytes # (Auto) 1.0 TH/MM3 0.9 TH/MM3 Eosinophils # (Auto) 0.2 TH/MM3 0.5 TH/MM3 Basophils # (Auto) 0.1 TH/MM3 0.1 TH/MM3 CBC Comment DIFF FINAL DIFF FINAL Differential Comment Laboratory Tests Test 03/02/16 03/03/16 09:47 07:17 Sodium Level 146 MEQ/L 142 MEQ/L Potassium Level 4.5 MEQ/L 4.2 MEQ/L Chloride Level 109 MEQ/L 109 MEQ/L Carbon Dioxide Level 28.9 MEQ/L 28.5 MEQ/L Anion Gap 8 MEQ/L 5 MEQ/L Blood Urea Nitrogen 36 MG/DL 31 MG/DL Creatinine 0.52 MG/DL 0.46 MG/DL Estimat Glomerular Filtration 166 ML/MIN 192 ML/MIN Rate Random Glucose 112 MG/DL 117 MG/DL Calcium Level 8.8 MG/DL 8.4 MG/DL Phosphorus Level 2.9 MG/DL 2.5 MG/DL Magnesium Level 2.6 MG/DL 2.3 MG/DL Total Bilirubin 0.3 MG/DL 0.5 MG/DL Aspartate Amino Transf 39 U/L 38 U/L (AST/SGOT) Alanine Aminotransferase 13 U/L 27 U/L (ALT/SGPT) Alkaline Phosphatase 52 U/L 52 U/L Total Protein 6.6 GM/DL 6.4 GM/DL Albumin 2.7 GM/DL 2.6 GM/DL Microbiology Date/Time Procedure Status Source Growth 02/29/16 21:00 Aerobic Blood Culture - Preliminary Resulted Blood Peripheral NO GROWTH IN 3 DAYS 02/29/16 21:00 Anaerobic Blood Culture - Preliminary Resulted Blood Peripheral NO GROWTH IN 3 DAYS 02/29/16 21:05 Aerobic Blood Culture - Preliminary Resulted Blood Peripheral NO GROWTH IN 3 DAYS 02/29/16 21:05 Anaerobic Blood Culture - Preliminary Resulted Blood Peripheral NO GROWTH IN 3 DAYS 03/01/16 13:25 Gram Stain - Final Complete Sputum Endotracheal 03/01/16 13:25 Sputum Culture - Final Complete Pseudomonas Aeruginosa 03/01/16 13:25 Urine Culture - Preliminary Resulted Urine Catheterized Urine Klebsiella Pneumoniae Imaging Abdomen X-Ray 12/07/15 0600 Signed Impressions: Service Date/Time: Monday, December 07, 2015 03:40 - CONCLUSION: No dilated loops of small or large bowel. Tai Jaquez MD Chest X-Ray 12/07/15 0000 Signed Impressions: Service Date/Time: Monday, December 07, 2015 03:34 - CONCLUSION: Right lung is clear. Slight improvement of interstitial infiltrates left mid and lower lung. Tai Jaquez MD Abdomen X-Ray 12/06/15 0000 Signed Impressions: Service Date/Time: Sunday, December 06, 2015 08:05 - CONCLUSION: No acute disease. Erlin Barajas MD Abdomen Ultrasound 12/06/15 0000 Signed Impressions: Service Date/Time: Sunday, December 06, 2015 17:42 - CONCLUSION: 1. The gallbladder is unremarkable with no evidence of cholelithiasis. 2. Simple cyst in the left kidney. 3. Mild pyelocaliectasis in the right kidney. Salazar Thurman MD Chest X-Ray 12/04/15 0600 Signed Impressions: Service Date/Time: Friday, December 04, 2015 03:50 - CONCLUSION: Interstitial densities in the right lung. Néstor Matamoros MD Chest X-Ray 11/28/15 0000 Signed Impressions: Service Date/Time: Saturday, November 28, 2015 00:21 - CONCLUSION: No acute cardiopulmonary disease. Eugene Schmid MD Abdomen X-Ray 11/26/15 0000 Signed Impressions: Service Date/Time: November 12:34 - CONCLUSION: 1. Nonobstructive bowel gas pattern. 2. Stable position of gastrostomy tube. Multiple surgical screws secure the proximal left femur. 3. No obvious pneumoperitoneum on the single projection provided. Scott Goode MD Upper Extremity Ultrasound 10/13/15 0000 Signed Impressions: Service Date/Time: Tuesday, October 13, 2015 09:51 - CONCLUSION: 1. No evidence of deep venous thrombosis. John Anderson MD Renal Ultrasound 10/07/15 0000 Signed Impressions: Service Date/Time: Wednesday, October 07, 2015 18:29 - CONCLUSION: 1. No acute findings. 3.6 cm left renal cyst. Valdez catheter in bladder. Amaury Ellsworth MD Tunnelled Chest Tube Removal 08/05/15 1100 Signed Impressions: Service Date/Time: Wednesday, August 05, 2015 11:00 - CONCLUSION: Uncomplicated chest tube removal. Blaine Jackson MD Chest Tube Change 07/31/15 0000 Signed Impressions: Service Date/Time: Friday, July 31, 2015 14:34 - CONCLUSION: Uncomplicated reposition of previously placed chest tube as above. Blaine Jackson MD Chest Tube Insertion 07/30/15 0000 Signed Impressions: Service Date/Time: July 14:50 - CONCLUSION: Uncomplicated chest tube placement as above. Blaine Jackson MD Catheter Change 07/27/15 0000 Signed Impressions: Service Date/Time: Monday, July 27, 2015 14:43 - CONCLUSION: Uncomplicated gastrostomy tube exchange as above. Blaine Jackson MD Chest CT 07/11/15 0000 Signed Impressions: Service Date/Time: Saturday, July 11, 2015 09:49 - CONCLUSION: Scattered patchy densities significantly improved from previous study. Tiny anterior right basilar pneumothorax. Right-sided chest tube in good position. Néstor Matamoros MD Head CT 06/18/151902 Signed Impressions: Service Date/Time: June 19:31 - CONCLUSION: Diffuse atrophy unchanged. No acute intracranial findings. Kush Briscoe MD Abdomen/Pelvis CT 06/18/15 1903 Signed Impressions: Service Date/Time: June 19:36 - CONCLUSION: 1. Chronic nonspecific urinary bladder wall thickening. Bladder collapsed with Valdez catheter in place. 2. Chronic bilateral mid to lower lung zone groundglass opacity. 3. Nonobstructing left renal calculus. 4. Distended rectum. Kush Briscoe MD Physical Exam GENERAL: No interaction, dyspneic. SKIN: Cool and moist. No generalized rash. HEENT: [place] conjunctivae, no icterus, moist mucosa. NECK: Trach site looks ok. Neck is supple RESPIRATORY: Coarse BS razia, with few rhonchi GASTROINTESTINAL: Abdomen soft, not distended. No guarding. PEG site looks okay. MUSCULOSKELETAL: No cyanosis No pedal edema. Contracted all 4 extremities. NEUROLOGICAL: Eyes open, Extremities contracted Peripheral IV line sites with no evidence of infection. ; Valdez in place, urine looks clear Assessment & Plan Remarks IMPRESSION New Sepsis source likely Tracheobronchitis. Other sources: CAUTI or Bacteremia MDR PSAE tracheobronchitis. Kleb pneumo Cath associated UTI. Chronic respiratory failure on trach Chronic encephalopathy with underlying diagnosis of advanced dementia as well as advanced Parkinson's disease. Status post trach Status post gastrostomy tube with no evidence of infection. Stage II sacral decubitus ulcer present on admission. h/o Recurrent aspiration tube feed related in past. Recommendations Continue Cefepime IV DC Vanco IV Start Tobramycin nebs. Follow cultures Follow clinically. Recommend once a month valdez change as for chronic patients. Will follow prn covering for me this weekend. Trina Moss MD Mar 03, 2016 18:56
[2016-03-03] MEDS: RESP: TOBRAMYCIN SULFATE 80 MG/2 ML NEB NEB SCH (20:00)
[2016-03-03] MEDS: ENOXAPARIN SODIUM 40 MG/0.4 ML SYRINGE SQ SCH (22:25)
[2016-03-04] VITALS (10 sets, daily range): BP systolic 77–132; BP diastolic 52–76; PULSE 65–79; RESP 20–24; TEMP 96–98.1; O2SAT 93–99
[2016-03-04] MEDS: BETHANECHOL CHL 10 MG TAB PO SCH ×4 (00:59→21:21)
[2016-03-04] MEDS: SODIUM CHLORIDE 23.4% INJ 38.5 MEQ in WATER STERILE FOR INJ 1,000 ML IV SCH ×2 (01:01→10:49)
[2016-03-04] MEDS: CEFEPIME INJ 2,000 MG in SODIUM CHLORIDE 0.9% INJ 100 ML IV SCH ×2 (02:30→10:49)
[2016-03-04] MEDS: FREE WATER G-TUBE SCH ×5 (06:00→23:25)
[2016-03-04] MEDS: ACETAMINOPHEN/HYDROcodone 325 MG/5 MG TAB PO PRN ×3 (06:04→21:22)
[2016-03-04] MEDS: CARBIDOPA/LEVODOPA 25 MG/100 MG TAB GT SCH ×4 (09:00→21:21)
[2016-03-04] MEDS: LACTOBACILLUS ACIDOPHILUS TAB PO SCH ×3 (09:03→16:21)
[2016-03-04] MEDS: POTASSIUM CL 40 MEQ/30 ML LIQ UDC GT SCH (09:03)
[2016-03-04] MEDS: LANSOPRAZOLE SOLUTAB 30 MG TAB NG SCH (09:03)
[2016-03-04] MEDS: PARoxetine HCL 20 MG TAB G-TUBE SCH (09:03)
[2016-03-04] MEDS: CHLORHEXIDINE GLUCONATE 0.12% 30 ML CUP MT SCH ×2 (09:03→21:21)
[2016-03-04] MEDS: GABAPENTIN 300 MG CAP G-TUBE SCH ×2 (09:03→21:21)
[2016-03-04] MEDS: predniSONE 5 MG TAB PO SCH (09:03)
[2016-03-04] MEDS: SODIUM CHLORIDE 0.9% FLUSH 5 ML FLUSH IVF SCH ×2 (09:04→21:00)
[2016-03-04] MEDS: ARTIFICIAL TEARS OPTH SOLN 15 ML BTL EACH EYE SCH ×3 (09:04→16:22)
[2016-03-04] MEDS: COLLAGENASE OINT 30 GM TUBE TOP SCH (09:05)
[2016-03-04] MEDS: RESP: TOBRAMYCIN SULFATE 80 MG/2 ML NEB NEB SCH ×2 (11:23→19:45)
--- NOTE | 2016-03-04 12:23 | HHI.PR ---
Subjective Remarks Patient hypotensive this a.m. with a blood pressure of 77/52 Bp better Patient is non verbal, tries to verbalize no reports of diarrhea afebrile currently on T piece at 28% Objective Vitals Vital Signs Date Time Temp Pulse Resp B/P Pulse Ox O2 Delivery O2 Flow Rate FiO2 03/04/16 11:24 97 T-piece 6.00 28 03/04/16 09:20 Bi-Pap 6.00 30 03/04/16 09:02 104/59 03/04/16 08:38 97.1 76 20 77/52 95 03/04/16 04:00 98.1 75 24 111/66 95 03/04/16 01:40 95 30 03/04/16 01:40 95 BiPAP 30 03/04/16 00:00 96.0 65 24 101/63 99 03/04/16 00:00 Bi-Pap 6.00 30 03/03/16 20:00 96.1 67 22 98/60 95 03/03/16 17:14 96.7 65 20 100/60 97 I/O 03/03/16 03/03/16 03/03/16 03/04/16 03/04/16 03/04/16 07:00 15:00 23:00 07:00 15:00 23:00 Intake Total 2137 ml 1881 ml Output Total 700 ml 600 ml 800 ml 850 ml Balance -700 ml -600 ml 1337 ml 1031 ml IV Total 1109 ml 1023 ml Tube Feeding 448 ml 338 ml Tube Irrigant 180 ml 120 ml Other 400 ml 400 ml Output Urine Total 700 ml 600 ml 800 ml 850 ml # Bowel Movements 0 2 Result Diagram: 03/03/1671603/03/16 07 Imaging Last 72 hours Impressions Chest X-Ray 03/02/16 0600 Signed Impressions: Service Date/Time: Wednesday, March 02, 2016 06:03 - CONCLUSION: Hyperinflation which can be seen with COPD. Minimal density right upper lobe could be atelectasis or infiltrate. Néstor Matamoros MD Objective Remarks GENERAL: Cachectic patient with limbs contracted. Eyes open. SKIN: Warm and dry. HEAD: Normocephalic. EYES: Left erythematous and with drainage. NECK: 8.0 Distal XLT trach in place CARDIOVASCULAR: Tachycardic without murmurs, gallops, or rubs. RESPIRATORY: There is some rhonchi auscultated on the right upper lung with mild espiratory wheeze, mild coarse breath sounds on the right lung diffusely. GASTROINTESTINAL: Abdomen soft, non-tender, nondistended. MUSCULOSKELETAL: Contracted limbs. Wound on lower back currently bandaged. NEURO: Eyes are open, not tracking. Procedures 07/26- PEG replacement 07/29- right pigtail catheter placement for new pneumothorax Medications and IVs Current Medications Medications (Trade) Dose Ordered Sig/Jassi Route Start Time Stop Time Status Last Admin (NS Flush) 2 ml UNSCH PRN IVF 06/18/15 21:30 02/01/16 03:04 (NS Flush) 2 ml BID IVF 06/19/15 09:00 03/04/16 09:04 (Tylenol 650 Mg/ 20 ml Liq) 650 mg Q6H PRN TUBE 06/18/15 21:30 03/02/16 03:37 (Tears Naturale Opth Soln) 1 drop TID EACH EYE 06/19/15 09:00 03/04/16 09:04 (Zofran Inj) 4 mg Q6H PRN IV 06/18/15 21:30 11/26/15 11:54 (Neurontin) 300 mg BID G-TUBE 06/19/15 09:00 03/04/16 09:03 (Lactinex) 1 tab TID PO 06/19/15 09:00 03/04/16 09:03 (Paxil) 20 mg DAILY G-TUBE 06/19/15 09:00 03/04/16 09:03 (Pill Splitter) 1 ea UNSCH PRN OTHER 06/19/15 03:30 06/28/15 09:35 (Prevacid Odt) 30 mg DAILY NG 07/08/15 09:00 03/04/16 09:03 (Morphine Inj) 2 mg Q3H PRN IV PUSH 07/28/15 00:45 02/27/16 02:32 (Lovenox Inj) 40 mg Q24H SQ 08/09/15 22:00 03/03/16 22:25 ([place] 5-325 Mg) 1 tab Q6H PRN PO 08/15/15 15:45 03/04/16 06:04 (Sublimaze Inj) 50 mcg Q2H PRN IV PUSH 08/15/15 15:45 01/15/16 13:10 (Santyl Oint) 1 applic DAILY TOP 08/21/15 09:00 03/04/16 09:05 (Levsin Liq) 0.125 mg Q4H PRN PO 09/06/15 11:00 03/02/16 00:04 (Brethine Inj) 1 mg UNSCH PRN SQ 12/06/15 06:45 (Ativan Inj) 1 mg Q3HR PRN IVP 12/15/15 17:00 02/27/16 02:31 (Deltasone) 2.5 mg DAILY PO 12/23/15 09:00 03/04/16 09:03 (Free Water) 200 ml Q6HR G-TUBE 01/03/16 18:00 03/04/16 10:49 (KCl 40 Meq/30 ml Liq) 20 meq DAILY GT 01/08/16 17:00 03/04/16 09:03 (Urecholine) 10 mg Q8HR PO 01/13/16 22:00 03/04/16 06:03 (Sinemet 25-100 Mg) 1.5 tab QID GT 01/14/16 21:00 03/03/16 22:24 Chlorhexidine Gluconate 15 ml 15 ml BID@08,20 MT 02/04/16 10:20 03/04/16 09:03 Cefepime HCl 2000 mg/Sodium Chloride 100 ml @ 200 mls/hr Q8H IV 03/01/16 10:30 03/04/16 10:49 (Sodium Chloride 23.4% Inj/Sterile Water For Inj) 1,009.625 ml @ 84 mls/hr Q12H2M IV 03/02/16 20:00 03/04/16 10:49 Urinary Catheter: Yes Assessment to: Continue Putnam insert reason: Prolonged Immobilization A/P Problem List: (1) Sepsis ICD Code: A41.9 Status: Acute (2) HCAP (healthcare-associated pneumonia) ICD Code: J18.9 Status: Acute (3) Fever ICD Code: R50.9 Status: Acute (4) Sepsis due to urinary tract infection ICD Code: A41.9 Status: Resolved (5) Chronic respiratory failure ICD Code: J96.10 Status: Chronic (6) Parkinson disease ICD Code: G20 Status: Chronic (7) UTI (urinary tract infection) ICD Code: N39.0 Status: Resolved (8) Encephalopathy ICD Code: G93.40 Status: Resolved (9) Feeding tube obstruction ICD Code: T85.598A Status: Resolved (10) Conjunctivitis ICD Code: H10.9 Status: Resolved (11) Hypotension ICD Code: I95.9 Status: Resolved Plan: Hypotension resolved after demonstration of 1 L of normal saline IV bolus. Continue with IV fluids, I will switch one fourth and S2 normal saline at a rate of 100 ml/h Assessment and Plan (1) Sepsis Plan: Due to HCAP. CXR on 03/02 shows Right upper lobe infiltrate. Appreciate ID input. Sputum culture is growing pseudomonas, urine culture is growing Klebsiella pneumonia ESBL positive monitor temps montor vital signs Continue IV fluids, IV antibiotics as per ID recommendations. The patient is currently on IV vancomycin, cefepime and tobramycin IV. (2) HCAP (healthcare-associated pneumonia) Plan: As above Pulmonary following, recommendations greatly appreciated. (3) Fever Plan: Due to sepsis as above. Fevers have resolved Continue tylenol as needed (4) Sepsis due to urinary tract infection Plan: ID consulted. The patient was on IV antibiotics as per infectious disease. Status post Zosyn. Status post vancomycin and Levaquin as well as tobramycin nebulization discontinued 02/11/16. ID was reconsulted for UTI. Treat with fluconazole with a stop date on 02/27/16. (5) Chronic respiratory failure Plan: Patient on tracheostomy. Tolerating TPs. Status post recurrent right pneumothorax status post pigtail catheter removal. Last chest x-ray was stable on 02/23/16 Pulmonary following. Continue BiPAP at night. Suction secretions as needed Patient on by mouth steroids, on prednisone 2.5 mg by mouth daily Continue DuoNeb's 4 times a day and when needed. Status post colistin nebs and Solu-Medrol. (6) Parkinson disease Plan: Continue Sinemet. Seems to be stable. (7) UTI (urinary tract infection) Plan: ID consulted. Status post treatment with fluconazole. Change Putnam catheter monthly. (8) Encephalopathy Plan: Likely metabolic encephalopathy. Neuro was consulted. CT head 06/18/15 showed diffuse atrophy unchanged. No acute intrapelvic findings. The patient is alert and nonverbal. Parkinson's medications were increased by neurology. Zyprexa was discontinued in 02/25. Continue to wean clonazepam. Change to every 48 hours on 02/13. He was discontinued on 02/23. (9) Feeding tube obstruction Plan: Feeding tube working well. Patient is status post PEG for moderate port protein, malnutrition. It was some concerns for hematemesis on 12/05. GI evaluated patient. Gastric was negative and hemoglobin has been stable. However J-tube was not function 02/25 and he was replaced by interventional radiology. Continue senna and Colace for bowel regimen here in Continue PPI Continue to feedings which the patient tolerating well. (10) Conjunctivitis Plan: I drainage and erythema have resolved. Patient being treated with Polytrim ophthalmic solution which will be discontinued on 03/02. GI prophylaxis: PPI. Stool softener. When necessary for constipation. DVT prophylaxis: Lovenox Discharge Planning Awaiting clinical improvement. Continue to monitor in the medical floor. Problem Qualifiers (1) Fever: Qualified Code: R50.9 - Fever, unspecified fever cause (2) Chronic respiratory failure: Qualified Code: J96.10 - Chronic respiratory failure, unspecified whether with hypoxia or hypercapnia (3) UTI (urinary tract infection): Qualified Code: N30.00 - Acute cystitis without hematuria (4) Conjunctivitis: Qualified Code: H10.9 - Conjunctivitis of left eye, unspecified conjunctivitis type Shon Jordan MD Mar 04, 2016 12:23
[2016-03-04] MEDS: SODIUM CHLOR 0.9% 1000 ML INJ 1,000 ML IV SCH ×2 (12:57→22:30)
[2016-03-04 13:01] LABS: BACTERIA, URINE RARE /hpf; BLOOD, URINE MOD (NEG); CALCIUM OXALATE CRYSTALS,URINE FEW /hpf; COMMENT (UR) CATH-CULTURE IND; CULTURE IF INDICATED CATH CULTURE IND; GLUCOSE,URINE NEG (NEG); KETONE, URINE TRACE mg/dL (NEG); MUCUS URINE FEW /lpf (OCC); NITRITE,URINE NEG (NEG); PH, URINE 5.5 (5.0-8.5); SQUAMOUS EPITHELIAL CELL URINE <1 /hpf (0-5); URINE COLOR YELLOW (YELLW/STRAW)
[2016-03-04 15:04] LABS: AUTOMATED NEUTROPHIL # 7.9 TH/MM3 (1.8-7.7); BASOPHIL % 0.3 % (0.0-2.0); EOSINOPHIL # 0.2 TH/MM3 (0-0.4); EOSINOPHIL % 1.8 % (0.0-4.0); HEMATOCRIT 33.8 % (39.0-51.0); HEMO FLAGS DIFF FINAL; LYMPH % 8.4 % (9.0-44.0); LYMPHOCYTE # 0.8 TH/MM3 (1.0-4.8); MEAN CELL VOLUME 84.4 FL (80.0-100.0); NEUT % 84.5 % (16.0-70.0); PLATELET COUNT 158 TH/MM3 (150-450); RED BLOOD COUNT 4.01 MIL/MM3 (4.50-5.90); RED CELL DISTRIBUTION WIDTH 15.2 % (11.6-17.2); WHITE BLOOD COUNT 9.4 TH/MM3 (4.0-11.0)
[2016-03-04 15:27] LABS: ALKALINE PHOSPHATASE 52 U/L (45-117); ALT (GPT) 44 U/L (12-78); ANION GAP 4 MEQ/L (5-15); AST (GOT) 57 U/L (15-37); BICARBONATE 28.5 MEQ/L (21.0-32.0); BLOOD UREA NITROGEN 18 MG/DL (7-18); CHLORIDE 111 MEQ/L (98-107); GLOMERULAR FILTRATION RATE 219 ML/MIN (>89); POTASSIUM 4.5 MEQ/L (3.5-5.1); SODIUM (NA) 143 MEQ/L (136-145); TOTAL BILIRUBIN ADULT 0.4 MG/DL (0.2-1.0)
--- NOTE | 2016-03-04 16:01 | HHI.IDPN ---
Subjective Subjective Remarks is 55 y/o CM with multiple medical problems.Chronic encephalopathy with underlying diagnosis of advanced dementia as well as advanced Parkinson's disease. Status post trach, Status post gastrostomy tube, sacral decubitus ulcer, h/o Recurrent aspiration tube feed related in past. Notes reviewed Afebrile. WBC normal. Was hypotensive this am with SBP in low 70s. Responded to 1 L IVF. No vomiting episodes. Tube feeds no residuals. UO 1000 ml overnight. Trach on T-peice, 28% FiO2. Secretions thick, yellow and mehta at times, copious. BP ok Clinically stable. d/w RN Antibiotics Cefepime IV Vanco IV Lines Peripheral IV with no e/o infection Past Medical History reviewed Allergies: Coded Allergies: *MDRO Multi-Drug Resistant Organism (Verified Adverse Reaction, Unknown, ESBL, carbapenem resistant Pseudomonas, 01/13/16) ESBL E. coli (urine) - 02/19/2015; ESBL K. pneumoniae (sputum-06/18/15, 08/03/15, 09/20/15,10/12/15, 11/27/15, 12/26/15, 01/09/16), (urine-08/03/15 & 11/27/15), MRSA PCR POSITIVE - 03/20/2015 MDR-Pseudomonas (sputum)- 08/18/15, 09/20/15, 10/2015 (Carbapenem resistant) Objective . Vital Signs Date Time Temp Pulse Resp B/P Pulse Ox O2 Delivery O2 Flow Rate FiO2 03/04/16 15:47 96.3 74 20 122/53 93 03/04/16 13:10 96.0 79 20 132/76 93 03/04/16 11:24 97 T-piece 6.00 28 03/04/16 09:20 Bi-Pap 6.00 30 03/04/16 09:02 104/59 03/04/16 08:38 97.1 76 20 77/52 95 03/04/16 04:00 98.1 75 24 111/66 95 03/04/16 01:40 95 30 03/04/16 01:40 95 BiPAP 30 03/04/16 00:00 96.0 65 24 101/63 99 03/04/16 00:00 Bi-Pap 6.00 30 03/03/16 20:00 96.1 67 22 98/60 95 03/03/16 17:14 96.7 65 20 100/60 97 03/03/16 03/03/16 03/04/16 15:00 23:00 07:00 Intake Total 2137 ml 1881 ml Output Total 600 ml 800 ml 850 ml Balance -600 ml 1337 ml 1031 ml IV Total 1109 ml 1023 ml Tube Feeding 448 ml 338 ml Tube Irrigant 180 ml 120 ml Other 400 ml 400 ml Output Urine Total 600 ml 800 ml 850 ml # Bowel Movements 0 2 . Laboratory Tests Test 03/03/16 03/04/16 07:17 14:39 White Blood Count 11.0 TH/MM3 9.4 TH/MM3 Red Blood Count 4.06 MIL/MM3 4.01 MIL/MM3 Hemoglobin 11.0 GM/DL 10.8 GM/DL Hematocrit 35.1 % 33.8 % Mean Corpuscular Volume 86.5 FL 84.4 FL Mean Corpuscular Hemoglobin 27.1 PG 27.0 PG Mean Corpuscular Hemoglobin 31.4 % 32.0 % Concent Red Cell Distribution Width 15.5 % 15.2 % Platelet Count 156 TH/MM3 158 TH/MM3 Mean Platelet Volume 10.2 FL 11.6 FL Neutrophils (%) (Auto) 76.7 % 84.5 % Lymphocytes (%) (Auto) 10.8 % 8.4 % Monocytes (%) (Auto) 7.8 % 5.0 % Eosinophils (%) (Auto) 4.2 % 1.8 % Basophils (%) (Auto) 0.5 % 0.3 % Neutrophils # (Auto) 8.5 TH/MM3 7.9 TH/MM3 Lymphocytes # (Auto) 1.2 TH/MM3 0.8 TH/MM3 Monocytes # (Auto) 0.9 TH/MM3 0.5 TH/MM3 Eosinophils # (Auto) 0.5 TH/MM3 0.2 TH/MM3 Basophils # (Auto) 0.1 TH/MM3 0.0 TH/MM3 CBC Comment DIFF FINAL DIFF FINAL Differential Comment Laboratory Tests Test 03/03/16 03/04/16 07:17 14:39 Sodium Level 142 MEQ/L 143 MEQ/L Potassium Level 4.2 MEQ/L 4.5 MEQ/L Chloride Level 109 MEQ/L 111 MEQ/L Carbon Dioxide Level 28.5 MEQ/L 28.5 MEQ/L Anion Gap 5 MEQ/L 4 MEQ/L Blood Urea Nitrogen 31 MG/DL 18 MG/DL Creatinine 0.46 MG/DL 0.41 MG/DL Estimat Glomerular Filtration 192 ML/MIN 219 ML/MIN Rate Random Glucose 117 MG/DL 133 MG/DL Calcium Level 8.4 MG/DL 8.5 MG/DL Phosphorus Level 2.5 MG/DL Magnesium Level 2.3 MG/DL Total Bilirubin 0.5 MG/DL 0.4 MG/DL Aspartate Amino Transf 38 U/L 57 U/L (AST/SGOT) Alanine Aminotransferase 27 U/L 44 U/L (ALT/SGPT) Alkaline Phosphatase 52 U/L 52 U/L Total Protein 6.4 GM/DL 5.8 GM/DL Albumin 2.6 GM/DL 2.5 GM/DL Microbiology Date/Time Procedure Status Source Growth 03/04/16 11:32 Urine Culture Received Urine Catheterized Urine Pending Imaging Abdomen X-Ray 12/07/15 0600 Signed Impressions: Service Date/Time: Monday, December 07, 2015 03:40 - CONCLUSION: No dilated loops of small or large bowel. Tai Jaquez MD Chest X-Ray 12/07/15 0000 Signed Impressions: Service Date/Time: Monday, December 07, 2015 03:34 - CONCLUSION: Right lung is clear. Slight improvement of interstitial infiltrates left mid and lower lung. Tai Jaquez MD Abdomen X-Ray 12/06/15 0000 Signed Impressions: Service Date/Time: Sunday, December 06, 2015 08:05 - CONCLUSION: No acute disease. Erlin Barajas MD Abdomen Ultrasound 12/06/15 0000 Signed Impressions: Service Date/Time: Sunday, December 06, 2015 17:42 - CONCLUSION: 1. The gallbladder is unremarkable with no evidence of cholelithiasis. 2. Simple cyst in the left kidney. 3. Mild pyelocaliectasis in the right kidney. Salazar Thurman MD Chest X-Ray 12/04/15 0600 Signed Impressions: Service Date/Time: Friday, December 04, 2015 03:50 - CONCLUSION: Interstitial densities in the right lung. Néstor Matamoros MD Chest X-Ray 11/28/15 0000 Signed Impressions: Service Date/Time: Saturday, November 28, 2015 00:21 - CONCLUSION: No acute cardiopulmonary disease. Eugene Schmid MD Abdomen X-Ray 11/26/15 0000 Signed Impressions: Service Date/Time: November 12:34 - CONCLUSION: 1. Nonobstructive bowel gas pattern. 2. Stable position of gastrostomy tube. Multiple surgical screws secure the proximal left femur. 3. No obvious pneumoperitoneum on the single projection provided. Scott Goode MD Upper Extremity Ultrasound 10/13/15 0000 Signed Impressions: Service Date/Time: Tuesday, October 13, 2015 09:51 - CONCLUSION: 1. No evidence of deep venous thrombosis. John Anderson MD Renal Ultrasound 10/07/15 0000 Signed Impressions: Service Date/Time: Wednesday, October 07, 2015 18:29 - CONCLUSION: 1. No acute findings. 3.6 cm left renal cyst. Valdez catheter in bladder. Amaury Ellsworth MD Tunnelled Chest Tube Removal 08/05/15 1100 Signed Impressions: Service Date/Time: Wednesday, August 05, 2015 11:00 - CONCLUSION: Uncomplicated chest tube removal. Blaine Jackson MD Chest Tube Change 07/31/15 0000 Signed Impressions: Service Date/Time: Friday, July 31, 2015 14:34 - CONCLUSION: Uncomplicated reposition of previously placed chest tube as above. Blaine Jackson MD Chest Tube Insertion 07/30/15 0000 Signed Impressions: Service Date/Time: July 14:50 - CONCLUSION: Uncomplicated chest tube placement as above. Blaine Jackson MD Catheter Change 07/27/15 0000 Signed Impressions: Service Date/Time: Monday, July 27, 2015 14:43 - CONCLUSION: Uncomplicated gastrostomy tube exchange as above. Blaine Jackson MD Chest CT 07/11/15 0000 Signed Impressions: Service Date/Time: Saturday, July 11, 2015 09:49 - CONCLUSION: Scattered patchy densities significantly improved from previous study. Tiny anterior right basilar pneumothorax. Right-sided chest tube in good position. Néstor Matamoros MD Head CT 06/18/15 591 Signed Impressions: Service Date/Time: June 19:31 - CONCLUSION: Diffuse atrophy unchanged. No acute intracranial findings. Kush Briscoe MD Abdomen/Pelvis CT 06/18/15 1903 Signed Impressions: Service Date/Time: June 19:36 - CONCLUSION: 1. Chronic nonspecific urinary bladder wall thickening. Bladder collapsed with Valdez catheter in place. 2. Chronic bilateral mid to lower lung zone groundglass opacity. 3. Nonobstructing left renal calculus. 4. Distended rectum. Kush Briscoe MD Physical Exam GENERAL: No interaction, dyspneic. SKIN: Cool and moist. No generalized rash. HEENT: [place] conjunctivae, no icterus, moist mucosa. NECK: Trach site looks ok. Neck is supple RESPIRATORY: Coarse BS razia, with few rhonchi GASTROINTESTINAL: Abdomen soft, not distended. No guarding. PEG site looks okay. MUSCULOSKELETAL: No cyanosis No pedal edema. Contracted all 4 extremities. NEUROLOGICAL: Eyes open, Extremities contracted Peripheral IV line sites with no evidence of infection. ; Valdez in place, urine looks clear Assessment & Plan Remarks IMPRESSION New Sepsis sources: Tracheobronchitis and ESBL Kleb pneumo UTI MDR PSAE tracheobronchitis. ESBL MDR Kleb pneumo Cath associated UTI. Chronic respiratory failure on trach Chronic encephalopathy with underlying diagnosis of advanced dementia as well as advanced Parkinson's disease. Status post trach Status post gastrostomy tube with no evidence of infection. Stage II sacral decubitus ulcer present on admission. h/o Recurrent aspiration tube feed related in past. Recommendations DC Cefepime IV Start Meropenem IV (ASP: ESBL Kleb pneumo UTI) Continue Tobramycin nebs. Follow cultures Follow clinically. Recommend once a month valdez change as for chronic patients. Will follow prn covering for me this weekend. Trina Moss MD Mar 04, 2016 16:01
[2016-03-04] MEDS ORDERED: ASP: Path resistant to other antimicrobials, culture proven XX PRN (16:15)
[2016-03-04] MEDS ORDERED: MISCELLANEOUS PHARMACY INFORMATION XX PRN (16:15)
[2016-03-04] MEDS: MEROPENEM INJ 500 MG in SODIUM CHLORIDE 0.9% INJ 100 ML IV SCH (18:50)
--- NOTE | 2016-03-04 18:50 | RADRPT ---
EXAM DATE/TIME: 03/04/2016 18:10 [facility] COMPARISON: CHEST SINGLE AP, March 02, 2016, 6:03. INDICATIONS : Pneumonia. MEDICAL HISTORY : Hypertension. Diabetes mellitus type II. SURGICAL HISTORY : Trach. ENCOUNTER: Subsequent ACUITY: 3 days PAIN SCORE: 0/10 LOCATION: chest FINDINGS: The lungs are clear without infiltrate, nodule, or mass. There is no appreciable pleural effusion fo r technique. Heart and mediastinum are unremarkable. Tracheostomy tube is present in satisfactory po sition. CONCLUSION: No acute cardiopulmonary disease. Eugene Schmid MD on March 04, 2016 at 18:47 Board Certified Radiologist. This report was verified electronically.
[2016-03-04] MEDS: ENOXAPARIN SODIUM 40 MG/0.4 ML SYRINGE SQ SCH (21:21)
[2016-03-05] VITALS (11 sets, daily range): BP systolic 82–119; BP diastolic 52–61; PULSE 20–82; RESP 17–20; TEMP 96–97; O2SAT 91–100
[2016-03-05] MEDS: MEROPENEM INJ 500 MG in SODIUM CHLORIDE 0.9% INJ 100 ML IV SCH ×3 (01:01→17:50)
[2016-03-05] MEDS: FREE WATER G-TUBE SCH ×4 (06:00→23:37)
[2016-03-05] MEDS: BETHANECHOL CHL 10 MG TAB PO SCH ×3 (06:00→21:38)
[2016-03-05 07:30] LABS: AUTOMATED NEUTROPHIL # 6.5 TH/MM3 (1.8-7.7); BASOPHIL % 0.5 % (0.0-2.0); EOSINOPHIL # 0.4 TH/MM3 (0-0.4); EOSINOPHIL % 4.1 % (0.0-4.0); HEMATOCRIT 32.7 % (39.0-51.0); HEMO FLAGS DIFF FINAL; LYMPH % 12.1 % (9.0-44.0); MEAN CELL VOLUME 84.5 FL (80.0-100.0); MEAN CORPUSCULAR HEMOGLOBIN 27.5 PG (27.0-34.0); MEAN CORPUSCULAR HGB CONC 32.6 % (32.0-36.0); MONO % 7.9 % (0.0-8.0); NEUT % 75.4 % (16.0-70.0); PLATELET COUNT 153 TH/MM3 (150-450); RED BLOOD COUNT 3.87 MIL/MM3 (4.50-5.90); RED CELL DISTRIBUTION WIDTH 14.6 % (11.6-17.2); WHITE BLOOD COUNT 8.6 TH/MM3 (4.0-11.0)
[2016-03-05 07:40] LABS: ALKALINE PHOSPHATASE 54 U/L (45-117); ALT (GPT) 27 U/L (12-78); ANION GAP 6 MEQ/L (5-15); AST (GOT) 58 U/L (15-37); BICARBONATE 28.4 MEQ/L (21.0-32.0); BLOOD UREA NITROGEN 15 MG/DL (7-18); CHLORIDE 109 MEQ/L (98-107); GLOMERULAR FILTRATION RATE 263 ML/MIN (>89); POTASSIUM 4.2 MEQ/L (3.5-5.1); SODIUM (NA) 143 MEQ/L (136-145); TOTAL BILIRUBIN ADULT 0.2 MG/DL (0.2-1.0)
[2016-03-05] MEDS: CHLORHEXIDINE GLUCONATE 0.12% 30 ML CUP MT SCH ×2 (08:00→21:37)
[2016-03-05] MEDS: GABAPENTIN 300 MG CAP G-TUBE SCH ×2 (08:13→21:38)
[2016-03-05] MEDS: POTASSIUM CL 40 MEQ/30 ML LIQ UDC GT SCH (08:13)
[2016-03-05] MEDS: CARBIDOPA/LEVODOPA 25 MG/100 MG TAB GT SCH ×4 (08:13→21:38)
[2016-03-05] MEDS: predniSONE 5 MG TAB PO SCH (08:14)
[2016-03-05] MEDS: PARoxetine HCL 20 MG TAB G-TUBE SCH (08:15)
[2016-03-05] MEDS: LANSOPRAZOLE SOLUTAB 30 MG TAB NG SCH (08:15)
[2016-03-05] MEDS: LACTOBACILLUS ACIDOPHILUS TAB PO SCH ×3 (08:15→17:50)
[2016-03-05] MEDS: SODIUM CHLOR 0.9% 1000 ML INJ 1,000 ML IV SCH ×2 (08:30→18:30)
[2016-03-05] MEDS: ARTIFICIAL TEARS OPTH SOLN 15 ML BTL EACH EYE SCH ×3 (08:35→18:00)
[2016-03-05] MEDS: RESP: ALBUTEROL 2.5 MG/3 ML NEB (PRN) NEB ×2 (08:49→20:02)
[2016-03-05] MEDS: SODIUM CHLORIDE 0.9% FLUSH 5 ML FLUSH IVF SCH ×2 (09:00→21:00)
[2016-03-05] MEDS: COLLAGENASE OINT 30 GM TUBE TOP SCH (09:00)
[2016-03-05] MEDS: RESP: TOBRAMYCIN SULFATE 80 MG/2 ML NEB NEB SCH ×2 (09:01→20:06)
--- NOTE | 2016-03-05 11:06 | HHI.IDPN ---
Subjective Subjective Remarks ID COVERAGE Notes reviewed Afebrile. WBC normal. BP intermittently low Not tachycardic Good sats on T-piece CXR clear Cultures reviewed is 55 y/o CM with multiple medical problems.Chronic encephalopathy with underlying diagnosis of advanced dementia as well as advanced Parkinson's disease. Status post trach, Status post gastrostomy tube, sacral decubitus ulcer, h/o Recurrent aspiration tube feed related in past. Antibiotics Meropenem IV Tobra neb Lines Peripheral IV with no e/o infection Past Medical History reviewed Allergies: Coded Allergies: *MDRO Multi-Drug Resistant Organism (Verified Adverse Reaction, Unknown, ESBL, carbapenem resistant Pseudomonas, 01/13/16) ESBL E. coli (urine) - 02/19/2015; ESBL K. pneumoniae (sputum-06/18/15, 08/03/15, 09/20/15,10/12/15, 11/27/15, 12/26/15, 01/09/16), (urine-08/03/15 & 11/27/15), MRSA PCR POSITIVE - 03/20/2015 MDR-Pseudomonas (sputum)- 08/18/15, 09/20/15, 10/2015 (Carbapenem resistant) Objective . Vital Signs Date Time Temp Pulse Resp B/P Pulse Ox O2 Delivery O2 Flow Rate FiO2 03/05/16 09:11 94 T-piece 28 03/05/16 08:15 T-Piece 8.00 28 Humidified 03/05/16 08:02 96.6 74 17 82/52 97 03/05/16 04:30 95 30 03/05/16 04:00 96.0 63 20 102/55 97 03/05/16 00:39 91 30 03/05/16 00:00 96.6 76 20 119/58 99 03/04/16 20:00 96.1 76 20 86/54 98 03/04/16 19:48 96 T-piece 28 03/04/16 19:15 T-Piece 8.00 28 Humidified 03/04/16 15:47 96.3 74 20 122/53 93 03/04/16 13:10 96.0 79 20 132/76 93 03/04/16 11:24 97 T-piece 6.00 28 03/04/16 03/04/16 03/05/16 15:00 23:00 07:00 Intake Total 1639 ml Output Total 1200 ml 700 ml Balance -1200 ml 939 ml IV Total 750 ml Tube Feeding 889 ml Output Urine Total 1200 ml 700 ml # Bowel Movements 1 2 0 . Laboratory Tests Test 03/04/16 03/05/16 14:39 06:50 White Blood Count 9.4 TH/MM3 8.6 TH/MM3 Red Blood Count 4.01 MIL/MM3 3.87 MIL/MM3 Hemoglobin 10.8 GM/DL 10.7 GM/DL Hematocrit 33.8 % 32.7 % Mean Corpuscular Volume 84.4 FL 84.5 FL Mean Corpuscular Hemoglobin 27.0 PG 27.5 PG Mean Corpuscular Hemoglobin 32.0 % 32.6 % Concent Red Cell Distribution Width 15.2 % 14.6 % Platelet Count 158 TH/MM3 153 TH/MM3 Mean Platelet Volume 11.6 FL 11.2 FL Neutrophils (%) (Auto) 84.5 % 75.4 % Lymphocytes (%) (Auto) 8.4 % 12.1 % Monocytes (%) (Auto) 5.0 % 7.9 % Eosinophils (%) (Auto) 1.8 % 4.1 % Basophils (%) (Auto) 0.3 % 0.5 % Neutrophils # (Auto) 7.9 TH/MM3 6.5 TH/MM3 Lymphocytes # (Auto) 0.8 TH/MM3 1.0 TH/MM3 Monocytes # (Auto) 0.5 TH/MM3 0.7 TH/MM3 Eosinophils # (Auto) 0.2 TH/MM3 0.4 TH/MM3 Basophils # (Auto) 0.0 TH/MM3 0.0 TH/MM3 CBC Comment DIFF FINAL DIFF FINAL Differential Comment Laboratory Tests Test 03/04/16 03/05/16 14:39 06:50 Sodium Level 143 MEQ/L 143 MEQ/L Potassium Level 4.5 MEQ/L 4.2 MEQ/L Chloride Level 111 MEQ/L 109 MEQ/L Carbon Dioxide Level 28.5 MEQ/L 28.4 MEQ/L Anion Gap 4 MEQ/L 6 MEQ/L Blood Urea Nitrogen 18 MG/DL 15 MG/DL Creatinine 0.41 MG/DL 0.35 MG/DL Estimat Glomerular Filtration 219 ML/MIN 263 ML/MIN Rate Random Glucose 133 MG/DL 105 MG/DL Calcium Level 8.5 MG/DL 8.3 MG/DL Total Bilirubin 0.4 MG/DL 0.2 MG/DL Aspartate Amino Transf 57 U/L 58 U/L (AST/SGOT) Alanine Aminotransferase 44 U/L 27 U/L (ALT/SGPT) Alkaline Phosphatase 52 U/L 54 U/L Total Protein 5.8 GM/DL 5.7 GM/DL Albumin 2.5 GM/DL 2.4 GM/DL Microbiology Date/Time Procedure Status Source Growth 03/04/16 11:32 Urine Culture Received Urine Catheterized Urine Pending 03/04/16 21:11 Aerobic Blood Culture Received Blood Other Pending 03/04/16 21:11 Anaerobic Blood Culture Received Blood Other Pending 03/04/16 23:04 Aerobic Blood Culture Received Blood Other Pending 03/04/16 23:04 Anaerobic Blood Culture Received Blood Other Pending Imaging Abdomen X-Ray 12/07/15 0600 Signed Impressions: Service Date/Time: Monday, December 07, 2015 03:40 - CONCLUSION: No dilated loops of small or large bowel. Tai Jaquez MD Chest X-Ray 12/07/15 0000 Signed Impressions: Service Date/Time: Monday, December 07, 2015 03:34 - CONCLUSION: Right lung is clear. Slight improvement of interstitial infiltrates left mid and lower lung. Tai Jaquez MD Abdomen X-Ray 12/06/15 0000 Signed Impressions: Service Date/Time: Sunday, December 06, 2015 08:05 - CONCLUSION: No acute disease. Erlin Barajas MD Abdomen Ultrasound 12/06/15 0000 Signed Impressions: Service Date/Time: Sunday, December 06, 2015 17:42 - CONCLUSION: 1. The gallbladder is unremarkable with no evidence of cholelithiasis. 2. Simple cyst in the left kidney. 3. Mild pyelocaliectasis in the right kidney. Salazar Thurman MD Chest X-Ray 12/04/15 0600 Signed Impressions: Service Date/Time: Friday, December 04, 2015 03:50 - CONCLUSION: Interstitial densities in the right lung. Néstor Matamoros MD Chest X-Ray 11/28/15 0000 Signed Impressions: Service Date/Time: Saturday, November 28, 2015 00:21 - CONCLUSION: No acute cardiopulmonary disease. Eugene Schmid MD Abdomen X-Ray 11/26/15 0000 Signed Impressions: Service Date/Time: November 12:34 - CONCLUSION: 1. Nonobstructive bowel gas pattern. 2. Stable position of gastrostomy tube. Multiple surgical screws secure the proximal left femur. 3. No obvious pneumoperitoneum on the single projection provided. Scott Goode MD Upper Extremity Ultrasound 10/13/15 0000 Signed Impressions: Service Date/Time: Tuesday, October 13, 2015 09:51 - CONCLUSION: 1. No evidence of deep venous thrombosis. John Anderson MD Renal Ultrasound 10/07/15 0000 Signed Impressions: Service Date/Time: Wednesday, October 07, 2015 18:29 - CONCLUSION: 1. No acute findings. 3.6 cm left renal cyst. Valdez catheter in bladder. Amaury Ellsworth MD Tunnelled Chest Tube Removal 08/05/15 1100 Signed Impressions: Service Date/Time: Wednesday, August 05, 2015 11:00 - CONCLUSION: Uncomplicated chest tube removal. Blaine Jackson MD Chest Tube Change 07/31/15 0000 Signed Impressions: Service Date/Time: Friday, July 31, 2015 14:34 - CONCLUSION: Uncomplicated reposition of previously placed chest tube as above. Blaine Jackson MD Chest Tube Insertion 07/30/15 0000 Signed Impressions: Service Date/Time: July 14:50 - CONCLUSION: Uncomplicated chest tube placement as above. Blaine Jackson MD Catheter Change 07/27/15 0000 Signed Impressions: Service Date/Time: Monday, July 27, 2015 14:43 - CONCLUSION: Uncomplicated gastrostomy tube exchange as above. Blaine Jackson MD Chest CT 07/11/15 0000 Signed Impressions: Service Date/Time: Saturday, July 11, 2015 09:49 - CONCLUSION: Scattered patchy densities significantly improved from previous study. Tiny anterior right basilar pneumothorax. Right-sided chest tube in good position. Néstor Matamoros MD Head CT 06/18/151902 Signed Impressions: Service Date/Time: June 19:31 - CONCLUSION: Diffuse atrophy unchanged. No acute intracranial findings. Kush Briscoe MD Abdomen/Pelvis CT 06/18/151902 Signed Impressions: Service Date/Time: June 19:36 - CONCLUSION: 1. Chronic nonspecific urinary bladder wall thickening. Bladder collapsed with Valdez catheter in place. 2. Chronic bilateral mid to lower lung zone groundglass opacity. 3. Nonobstructing left renal calculus. 4. Distended rectum. Kush Briscoe MD Physical Exam GENERAL: No interaction, calm, looks comfortable SKIN: Cool and moist. No generalized rash. HEENT: [place] conjunctivae, no icterus, moist mucosa. NECK: Trach site looks ok. Neck is supple RESPIRATORY: Coarse BS razia, with few rhonchi GASTROINTESTINAL: Abdomen soft, not distended. No guarding. PEG site looks okay. MUSCULOSKELETAL: No cyanosis No pedal edema. Contracted all 4 extremities. NEUROLOGICAL: Eyes open, Extremities contracted Peripheral IV line sites with no evidence of infection. ; Valdez in place, urine looks clear Assessment & Plan Remarks IMPRESSION New Sepsis sources: Tracheobronchitis and ESBL Kleb pneumo UTI MDR PSAE tracheobronchitis. ESBL MDR Kleb pneumo Cath associated UTI. Chronic respiratory failure on trach Chronic encephalopathy with underlying diagnosis of advanced dementia as well as advanced Parkinson's disease. Status post trach Status post gastrostomy tube with no evidence of infection. Stage II sacral decubitus ulcer present on admission. h/o Recurrent aspiration tube feed related in past. Recommendations Continue Meropenem IV (ASP: ESBL Kleb pneumo UTI) Continue Tobramycin nebs. Follow cultures Follow clinically. Recommend once a month valdez change as for chronic patients. Bhavna Weeks MD Mar 05, 2016 11:06
--- NOTE | 2016-03-05 13:38 | HHI.PR ---
Subjective Remarks No further fevers as per RN some blisters noted in right arm intermittent hypotension no diarrhea reported Objective Vitals Vital Signs Date Time Temp Pulse Resp B/P Pulse Ox O2 Delivery O2 Flow Rate FiO2 03/05/16 12:00 96.7 82 18 118/58 97 03/05/16 09:11 94 T-piece 28 03/05/16 08:15 T-Piece 8.00 28 Humidified 03/05/16 08:02 96.6 74 17 82/52 97 03/05/16 04:30 95 30 03/05/16 04:00 96.0 63 20 102/55 97 03/05/16 00:39 91 30 03/05/16 00:00 96.6 76 20 119/58 99 03/04/16 20:00 96.1 76 20 86/54 98 03/04/16 19:48 96 T-piece 28 03/04/16 19:15 T-Piece 8.00 28 Humidified 03/04/16 15:47 96.3 74 20 122/53 93 I/O 03/04/16 03/04/16 03/04/16 03/05/16 03/05/16 03/05/16 07:00 15:00 23:00 07:00 15:00 23:00 Intake Total 1881 ml 1639 ml Output Total 850 ml 1200 ml 700 ml Balance 1031 ml -1200 ml 939 ml IV Total 1023 ml 750 ml Tube Feeding 338 ml 889 ml Tube Irrigant 120 ml Other 400 ml Output Urine Total 850 ml 1200 ml 700 ml # Bowel Movements 2 1 2 0 Result Diagram: 03/05/16 0650 03/05/16 0650 Imaging Last Impressions Chest X-Ray 03/04/16 0000 Signed Impressions: Service Date/Time: Friday, March 04, 2016 18:10 - CONCLUSION: No acute cardiopulmonary disease. KJeremías Shcmid MD Tube Change 02/26/16 0000 Signed Impressions: Service Date/Time: Friday, February 26, 2016 18:49 - CONCLUSION: Uncomplicated gastrojejunostomy tube exchange as above. Scott Goode MD Tube Check 02/12/16 0000 Signed Impressions: Service Date/Time: Friday, February 12, 2016 16:08 - CONCLUSION: Uncomplicated tube injection as above. Blaine Jackson MD Gastrostomy Tube Change 01/15/16 0000 Signed Impressions: Service Date/Time: Friday, January 15, 2016 12:28 - CONCLUSION: Successful GJ tube exchange as above. Scott Goode MD Abdomen X-Ray 01/12/16 1628 Signed Impressions: Service Date/Time: Tuesday, January 12, 2016 17:35 - CONCLUSION: No evidence of obstruction or free air. Reyes Jewell MD Abdomen Ultrasound 12/06/15 0000 Signed Impressions: Service Date/Time: Sunday, December 06, 2015 17:42 - CONCLUSION: 1. The gallbladder is unremarkable with no evidence of cholelithiasis. 2. Simple cyst in the left kidney. 3. Mild pyelocaliectasis in the right kidney. Salazar Thurman MD Upper Extremity Ultrasound 10/13/15 0000 Signed Impressions: Service Date/Time: Tuesday, October 13, 2015 09:51 - CONCLUSION: 1. No evidence of deep venous thrombosis. John Anderson MD Renal Ultrasound 10/07/15 0000 Signed Impressions: Service Date/Time: Wednesday, October 07, 2015 18:29 - CONCLUSION: 1. No acute findings. 3.6 cm left renal cyst. Putnam catheter in bladder. Amaury Ellsworth MD Tunnelled Chest Tube Removal 08/05/15 1100 Signed Impressions: Service Date/Time: Wednesday, August 05, 2015 11:00 - CONCLUSION: Uncomplicated chest tube removal. Blaine Jackson MD Chest Tube Change 07/31/15 0000 Signed Impressions: Service Date/Time: Friday, July 31, 2015 14:34 - CONCLUSION: Uncomplicated reposition of previously placed chest tube as above. Blaine Jackson MD Chest Tube Insertion 07/30/15 0000 Signed Impressions: Service Date/Time: July 14:50 - CONCLUSION: Uncomplicated chest tube placement as above. Blaine Jackson MD Catheter Change 07/27/15 0000 Signed Impressions: Service Date/Time: Monday, July 27, 2015 14:43 - CONCLUSION: Uncomplicated gastrostomy tube exchange as above. Blaine Jackson MD Chest CT 07/11/15 0000 Signed Impressions: Service Date/Time: Saturday, July 11, 2015 09:49 - CONCLUSION: Scattered patchy densities significantly improved from previous study. Tiny anterior right basilar pneumothorax. Right-sided chest tube in good position. Néstor Matamoros MD Head CT 06/18/151902 Signed Impressions: Service Date/Time: June 19:31 - CONCLUSION: Diffuse atrophy unchanged. No acute intracranial findings. Kush Briscoe MD Abdomen/Pelvis CT 06/18/151902 Signed Impressions: Service Date/Time: June 19:36 - CONCLUSION: 1. Chronic nonspecific urinary bladder wall thickening. Bladder collapsed with Putnam catheter in place. 2. Chronic bilateral mid to lower lung zone groundglass opacity. 3. Nonobstructing left renal calculus. 4. Distended rectum. Kush Briscoe MD Objective Remarks GENERAL: Cachectic patient with limbs contracted. Eyes open. SKIN: Warm and dry. HEAD: Normocephalic. EYES: Left erythematous and with drainage. NECK: 8.0 Distal XLT trach in place CARDIOVASCULAR: Tachycardic without murmurs, gallops, or rubs. RESPIRATORY: There is some rhonchi auscultated on the right upper lung with mild espiratory wheeze, mild coarse breath sounds on the right lung diffusely. GASTROINTESTINAL: Abdomen soft, non-tender, nondistended. MUSCULOSKELETAL: Contracted limbs. Wound on lower back currently bandaged. NEURO: Eyes are open, not tracking. Procedures 07/26- PEG replacement 07/29- right pigtail catheter placement for new pneumothorax Medications and IVs Current Medications Medications (Trade) Dose Ordered Sig/Jassi Route Start Time Stop Time Status Last Admin (NS Flush) 2 ml UNSCH PRN IVF 06/18/15 21:30 02/01/16 03:04 (NS Flush) 2 ml BID IVF 06/19/15 09:00 03/04/16 09:04 (Tylenol 650 Mg/ 20 ml Liq) 650 mg Q6H PRN TUBE 06/18/15 21:30 03/02/16 03:37 (Tears Naturale Opth Soln) 1 drop TID EACH EYE 06/19/15 09:00 03/05/16 13:28 (Zofran Inj) 4 mg Q6H PRN IV 06/18/15 21:30 11/26/15 11:54 (Neurontin) 300 mg BID G-TUBE 06/19/15 09:00 03/05/16 08:13 (Lactinex) 1 tab TID PO 06/19/15 09:00 03/05/16 17:50 (Paxil) 20 mg DAILY G-TUBE 06/19/15 09:00 03/05/16 08:15 (Pill Splitter) 1 ea UNSCH PRN OTHER 06/19/15 03:30 06/28/15 09:35 (Prevacid Odt) 30 mg DAILY NG 07/08/15 09:00 03/05/16 08:15 (Morphine Inj) 2 mg Q3H PRN IV PUSH 07/28/15 00:45 02/27/16 02:32 (Lovenox Inj) 40 mg Q24H SQ 08/09/15 22:00 03/04/16 21:21 ([place] 5-325 Mg) 1 tab Q6H PRN PO 08/15/15 15:45 03/04/16 21:22 (Sublimaze Inj) 50 mcg Q2H PRN IV PUSH 08/15/15 15:45 01/15/16 13:10 (Santyl Oint) 1 applic DAILY TOP 08/21/15 09:00 03/05/16 09:00 (Levsin Liq) 0.125 mg Q4H PRN PO 09/06/15 11:00 03/02/16 00:04 (Brethine Inj) 1 mg UNSCH PRN SQ 12/06/15 06:45 (Ativan Inj) 1 mg Q3HR PRN IVP 12/15/15 17:00 02/27/16 02:31 (Deltasone) 2.5 mg DAILY PO 12/23/15 09:00 03/05/16 08:14 (Free Water) 200 ml Q6HR G-TUBE 01/03/16 18:00 03/05/16 17:50 (KCl 40 Meq/30 ml Liq) 20 meq DAILY GT 01/08/16 17:00 03/05/16 08:13 (Urecholine) 10 mg Q8HR PO 01/13/16 22:00 03/05/16 13:27 (Sinemet 25-100 Mg) 1.5 tab QID GT 01/14/16 21:00 03/05/16 17:50 Chlorhexidine Gluconate 15 ml 15 ml BID@08,20 MT 02/04/16 10:20 03/05/16 08:00 Sodium Chloride 1,000 ml @ 100 mls/hr Q10H IV 03/04/16 12:30 03/04/16 12:57 (Merrem Inj/NS Inj) 100 ml @ 200 mls/hr Q8H IV 03/04/16 17:00 03/05/16 17:50 Urinary Catheter: No Vascular Central Line Catheter: No A/P Problem List: (1) Sepsis ICD Code: A41.9 Status: Acute (2) HCAP (healthcare-associated pneumonia) ICD Code: J18.9 Status: Acute (3) Fever ICD Code: R50.9 Status: Acute (4) Sepsis due to urinary tract infection ICD Code: A41.9 Status: Resolved (5) Chronic respiratory failure ICD Code: J96.10 Status: Chronic (6) Parkinson disease ICD Code: G20 Status: Chronic (7) UTI (urinary tract infection) ICD Code: N39.0 Status: Resolved (8) Encephalopathy ICD Code: G93.40 Status: Resolved (9) Feeding tube obstruction ICD Code: T85.598A Status: Resolved (10) Conjunctivitis ICD Code: H10.9 Status: Resolved (11) Hypotension ICD Code: I95.9 Status: Resolved Assessment and Plan (1) Sepsis Plan: Due to HCAP. CXR on 03/02 shows Right upper lobe infiltrate. Appreciate ID input. Sputum culture is growing pseudomonas, urine culture is growing Klebsiella pneumonia ESBL positive monitor temps montor vital signs Continue IV fluids, IV antibiotics as per ID recommendations. The patient is currently on IV Meropenem and Tobramycin nebs. (2) HCAP (healthcare-associated pneumonia) Plan: As above Pulmonary following, recommendations greatly appreciated. Supplemental o2 pulmonary toilette suctioning (3) Fever Plan: Due to sepsis as above. Fevers have resolved Continue tylenol as needed (4) Sepsis due to urinary tract infection Plan: ID consulted. The patient was on IV antibiotics as per infectious disease. Status post Zosyn. Status post vancomycin and Levaquin as well as tobramycin nebulization discontinued 02/11/16. ID was reconsulted for UTI. Treated with fluconazole with a stop date on 02/27/16. (5) Chronic respiratory failure Plan: Patient on tracheostomy. Tolerating TPs. Status post recurrent right pneumothorax status post pigtail catheter removal. Last chest x-ray was stable on 02/23/16 Pulmonary following. Continue BiPAP at night. Suction secretions as needed Patient on by mouth steroids, on prednisone 2.5 mg by mouth daily Continue DuoNeb's 4 times a day and when needed. Status post colistin nebs and Solu-Medrol. (6) Parkinson disease Plan: Continue Sinemet. Seems to be stable. (7) UTI (urinary tract infection) Plan: ID consulted. Status post treatment with fluconazole. Change Putnam catheter monthly. (8) Encephalopathy Plan: Likely metabolic encephalopathy. Neuro was consulted. CT head 06/18/15 showed diffuse atrophy unchanged. No acute intrapelvic findings. The patient is alert and nonverbal. Parkinson's medications were increased by neurology. Zyprexa was discontinued in 02/25. Continue to wean clonazepam. Change to every 48 hours on 02/13. He was discontinued on 02/23. (9) Feeding tube obstruction Plan: Feeding tube working well. Patient is status post PEG for moderate port protein, malnutrition. It was some concerns for hematemesis on 12/05. GI evaluated patient. Gastric was negative and hemoglobin has been stable. However J-tube was not function 02/25 and he was replaced by interventional radiology. Continue senna and Colace for bowel regimen here in Continue PPI Continue to feedings which the patient tolerating well. (10) Conjunctivitis Plan: Eye drainage and erythema have resolved. Sp treatment with Polytrim ophtalmic solution. GI prophylaxis: PPI. Stool softener. When necessary for constipation. DVT prophylaxis: Lovenox Discharge Planning Awaiting clinical improvement. Continue to monitor in the medical floor. Problem Qualifiers (1) Fever: Qualified Code: R50.9 - Fever, unspecified fever cause (2) Chronic respiratory failure: Qualified Code: J96.10 - Chronic respiratory failure, unspecified whether with hypoxia or hypercapnia (3) UTI (urinary tract infection): Qualified Code: N30.00 - Acute cystitis without hematuria (4) Conjunctivitis: Qualified Code: H10.9 - Conjunctivitis of left eye, unspecified conjunctivitis type Shon Jordan MD Mar 05, 2016 13:38
[2016-03-05] MEDS: ENOXAPARIN SODIUM 40 MG/0.4 ML SYRINGE SQ SCH (21:38)
[2016-03-06] VITALS (11 sets, daily range): BP systolic 93–141; BP diastolic 57–82; PULSE 69–90; RESP 20–28; TEMP 95.7–99.2; O2SAT 88–98
[2016-03-06] MEDS: MEROPENEM INJ 500 MG in SODIUM CHLORIDE 0.9% INJ 100 ML IV SCH ×3 (00:45→18:15)
[2016-03-06] MEDS: SODIUM CHLOR 0.9% 1000 ML INJ 1,000 ML IV SCH ×2 (04:34→14:30)
[2016-03-06] MEDS: BETHANECHOL CHL 10 MG TAB PO SCH ×3 (05:47→21:48)
[2016-03-06] MEDS: FREE WATER G-TUBE SCH ×3 (06:00→18:00)
[2016-03-06] MEDS: COLLAGENASE OINT 30 GM TUBE TOP SCH (09:00)
[2016-03-06] MEDS: SODIUM CHLORIDE 0.9% FLUSH 5 ML FLUSH IVF SCH ×2 (09:00→21:00)
[2016-03-06] MEDS: CARBIDOPA/LEVODOPA 25 MG/100 MG TAB GT SCH ×4 (09:11→21:48)
[2016-03-06] MEDS: LACTOBACILLUS ACIDOPHILUS TAB PO SCH ×3 (09:11→18:15)
[2016-03-06] MEDS: GABAPENTIN 300 MG CAP G-TUBE SCH ×2 (09:11→21:48)
[2016-03-06] MEDS: PARoxetine HCL 20 MG TAB G-TUBE SCH (09:11)
[2016-03-06] MEDS: RESP: ALBUTEROL 2.5 MG/3 ML NEB (PRN) NEB (09:11)
[2016-03-06] MEDS: predniSONE 5 MG TAB PO SCH (09:12)
[2016-03-06] MEDS: POTASSIUM CL 40 MEQ/30 ML LIQ UDC GT SCH (09:12)
[2016-03-06] MEDS: LANSOPRAZOLE SOLUTAB 30 MG TAB NG SCH (09:12)
[2016-03-06] MEDS: RESP: TOBRAMYCIN SULFATE 80 MG/2 ML NEB NEB SCH ×2 (09:12→21:00)
--- NOTE | 2016-03-06 11:34 | HHI.PR ---
Subjective Remarks Follow up sepsis, HCAP. Per nursing, patient's IV infiltrated. No other events reported. He has swelling of his right arm from the IV infiltrating. He is hypoxic, with O2 sat in 80s. Objective Vitals Vital Signs Date Time Temp Pulse Resp B/P Pulse Ox O2 Delivery O2 Flow Rate FiO2 03/06/16 09:35 98 T-piece 28 03/06/16 08:20 96.0 69 27 114/64 96 03/06/16 04:38 95 30 03/06/16 04:00 97.7 86 20 122/77 98 03/06/16 01:29 95 30 03/06/16 00:00 97.3 87 20 93/64 94 03/05/16 22:30 95 30 03/05/16 22:15 Bi-Pap 03/05/16 20:07 100 T-piece 6.00 28 03/05/16 20:00 97.0 20 20 91/61 93 03/05/16 16:00 96.8 74 17 107/55 96 03/05/16 12:00 96.7 82 18 118/58 97 I/O 03/05/16 03/05/16 03/05/16 03/06/16 03/06/16 03/06/16 07:00 15:00 23:00 07:00 15:00 23:00 Intake Total 1639 ml Output Total 700 ml 1100 ml 400 ml 700 ml Balance 939 ml -1100 ml -400 ml -700 ml IV Total 750 ml Tube Feeding 889 ml Output Urine Total 700 ml 1100 ml 400 ml 700 ml # Bowel Movements 0 0 Result Diagram: 03/05/16 0650 03/05/16 0650 Imaging Last Impressions Chest X-Ray 03/04/16 0000 Signed Impressions: Service Date/Time: Friday, March 04, 2016 18:10 - CONCLUSION: No acute cardiopulmonary disease. Eugene Schmid MD Tube Change 02/26/16 0000 Signed Impressions: Service Date/Time: Friday, February 26, 2016 18:49 - CONCLUSION: Uncomplicated gastrojejunostomy tube exchange as above. Scott Goode MD Tube Check 02/12/16 0000 Signed Impressions: Service Date/Time: Friday, February 12, 2016 16:08 - CONCLUSION: Uncomplicated tube injection as above. Blaine Jackson MD Gastrostomy Tube Change 01/15/16 0000 Signed Impressions: Service Date/Time: Friday, January 15, 2016 12:28 - CONCLUSION: Successful GJ tube exchange as above. Scott Goode MD Abdomen X-Ray 01/12/16 1628 Signed Impressions: Service Date/Time: Tuesday, January 12, 2016 17:35 - CONCLUSION: No evidence of obstruction or free air. Reyes Jewell MD Abdomen Ultrasound 12/06/15 0000 Signed Impressions: Service Date/Time: Sunday, December 06, 2015 17:42 - CONCLUSION: 1. The gallbladder is unremarkable with no evidence of cholelithiasis. 2. Simple cyst in the left kidney. 3. Mild pyelocaliectasis in the right kidney. Salazar Thurman MD Upper Extremity Ultrasound 10/13/15 0000 Signed Impressions: Service Date/Time: Tuesday, October 13, 2015 09:51 - CONCLUSION: 1. No evidence of deep venous thrombosis. John Anderson MD Renal Ultrasound 10/07/15 0000 Signed Impressions: Service Date/Time: Wednesday, October 07, 2015 18:29 - CONCLUSION: 1. No acute findings. 3.6 cm left renal cyst. Putnam catheter in bladder. Amaury Ellsworth MD Tunnelled Chest Tube Removal 08/05/15 1100 Signed Impressions: Service Date/Time: Wednesday, August 05, 2015 11:00 - CONCLUSION: Uncomplicated chest tube removal. Blaine Jackson MD Chest Tube Change 07/31/15 0000 Signed Impressions: Service Date/Time: Friday, July 31, 2015 14:34 - CONCLUSION: Uncomplicated reposition of previously placed chest tube as above. Blaine Jackson MD Chest Tube Insertion 07/30/15 0000 Signed Impressions: Service Date/Time: July 14:50 - CONCLUSION: Uncomplicated chest tube placement as above. Blaine Jackson MD Catheter Change 07/27/15 0000 Signed Impressions: Service Date/Time: Monday, July 27, 2015 14:43 - CONCLUSION: Uncomplicated gastrostomy tube exchange as above. Blaine Jackson MD Chest CT 07/11/15 0000 Signed Impressions: Service Date/Time: Saturday, July 11, 2015 09:49 - CONCLUSION: Scattered patchy densities significantly improved from previous study. Tiny anterior right basilar pneumothorax. Right-sided chest tube in good position. Néstor Matamoros MD Head CT [id number] Signed Impressions: Service Date/Time: June 19:31 - CONCLUSION: Diffuse atrophy unchanged. No acute intracranial findings. Kush Briscoe MD Abdomen/Pelvis CT [id number]/[id number] Signed Impressions: Service Date/Time: June 19:36 - CONCLUSION: 1. Chronic nonspecific urinary bladder wall thickening. Bladder collapsed with Putnam catheter in place. 2. Chronic bilateral mid to lower lung zone groundglass opacity. 3. Nonobstructing left renal calculus. 4. Distended rectum. Kush Briscoe MD Objective Remarks General: Thin male in no acute distress. Face is flushed. Heart: Regular rate and rhythm. No murmur. Lungs: Coarse breath sounds bilaterally. Breathing is nonlabored. Tracheostomy. Abdomen: Soft, nontender, nondistended. Extremities: No lower extremity edema. SCDs. Contractures of upper extremities. Psych: Nonverbal. Neuro: Does not follow commands. Does not track. Procedures 07/26- PEG replacement 07/29- right pigtail catheter placement for new pneumothorax Urinary Catheter: Yes Assessment to: Continue Putnam insert reason: Obstruction/Retention Vascular Central Line Catheter: No A/P Problem List: (1) Sepsis ICD Code: A41.9 Status: Acute (2) HCAP (healthcare-associated pneumonia) ICD Code: J18.9 Status: Acute (3) Fever ICD Code: R50.9 Status: Acute (4) Sepsis due to urinary tract infection ICD Code: A41.9 Status: Resolved (5) Chronic respiratory failure ICD Code: J96.10 Status: Chronic (6) Parkinson disease ICD Code: G20 Status: Chronic (7) UTI (urinary tract infection) ICD Code: N39.0 Status: Resolved (8) Encephalopathy ICD Code: G93.40 Status: Resolved (9) Feeding tube obstruction ICD Code: T85.598A Status: Resolved (10) Conjunctivitis ICD Code: H10.9 Status: Resolved (11) Hypotension ICD Code: I95.9 Status: Resolved Assessment and Plan 1. Sepsis secondary to HCAP, UTI: Appreciate infectious disease recommendations. Sputum culture growing Pseudomonas. Chest x-ray on 03/02/16 shows right upper lobe infiltrate. Urine culture growing Klebsiella ESBL positive. Continue meropenem IV, tobramycin nebulized. 2. HCAP: Appreciate pulmonology and infectious disease recommendations. Continue supplemental oxygen, pulmonary toilet, sectioning. 3. Leukocytosis: Patient remains afebrile. 4. Parkinson's disease: Continue Sinemet. 5. Chronic respiratory failure: Tracheostomy. Appreciate pulmonology recommendations. Levsin as needed. Continue prednisone. DuoNeb's scheduled and as needed. Requiring BiPAP, sectioning. 6. Metabolic encephalopathy: Appreciate neurology recommendations. Continue treatment for Parkinson's disease. Zyprexa discontinued 02/26/16. Clonazepam discontinued 02/24/16. 7. Moderate protein calorie malnutrition: Peg tube placed. Evaluated by GI. Continue bowel regimen. Continue tube feeds. PEG tube replaced on 02/26/16 by interventional radiology. 8. Bilateral lower extremity contractures: Continue PT. 9. Stage II decubitus ulcer: Continue wound care. Turn every 2 hours. 10. DVT prophylaxis: Lovenox. 11. GI prophylaxis: PPI. Discharge Planning Awaiting clinical improvement. Case management assisting with discharge planning. Problem Qualifiers (1) Fever: Qualified Code: R50.9 - Fever, unspecified fever cause (2) Chronic respiratory failure: Qualified Code: J96.10 - Chronic respiratory failure, unspecified whether with hypoxia or hypercapnia (3) UTI (urinary tract infection): Qualified Code: N30.00 - Acute cystitis without hematuria (4) Conjunctivitis: Qualified Code: H10.9 - Conjunctivitis of left eye, unspecified conjunctivitis type German Bernal MD Mar 06, 2016 11:34
--- NOTE | 2016-03-06 12:41 | HHI.IDPN ---
Subjective Subjective Remarks ID COVERAGE Notes reviewed Afebrile. WBC normal. BP intermittently low Had some desats earlier CXR clear Cultures reviewed is 55 y/o CM with multiple medical problems.Chronic encephalopathy with underlying diagnosis of advanced dementia as well as advanced Parkinson's disease. Status post trach, Status post gastrostomy tube, sacral decubitus ulcer, h/o Recurrent aspiration tube feed related in past. Antibiotics Meropenem IV Tobra neb Lines Peripheral IV with no e/o infection Past Medical History reviewed Allergies: Coded Allergies: *MDRO Multi-Drug Resistant Organism (Verified Adverse Reaction, Unknown, ESBL, carbapenem resistant Pseudomonas, 01/13/16) ESBL E. coli (urine) - 02/19/2015; ESBL K. pneumoniae (sputum-06/18/15, 08/03/15, 09/20/15,10/12/15, 11/27/15, 12/26/15, 01/09/16), (urine-08/03/15 & 11/27/15), MRSA PCR POSITIVE - 03/20/2015 MDR-Pseudomonas (sputum)- 08/18/15, 09/20/15, 10/2015 (Carbapenem resistant) Objective . Vital Signs Date Time Temp Pulse Resp B/P Pulse Ox O2 Delivery O2 Flow Rate FiO2 03/06/16 12:09 98.7 88 23 127/74 96 03/06/16 09:35 98 T-piece 28 03/06/16 08:20 96.0 69 27 114/64 96 03/06/16 04:38 95 30 03/06/16 04:00 97.7 86 20 122/77 98 03/06/16 01:29 95 30 03/06/16 00:00 97.3 87 20 93/64 94 03/05/16 22:30 95 30 03/05/16 22:15 Bi-Pap 03/05/16 20:07 100 T-piece 6.00 28 03/05/16 20:00 97.0 20 20 91/61 93 03/05/16 16:00 96.8 74 17 107/55 96 03/05/16 03/05/16 03/06/16 15:00 23:00 07:00 Output Total 1100 ml 400 ml 700 ml Balance -1100 ml -400 ml -700 ml Output Urine Total 1100 ml 400 ml 700 ml # Bowel Movements 0 . Laboratory Tests Test 03/04/16 03/05/16 14:39 06:50 White Blood Count 9.4 TH/MM3 8.6 TH/MM3 Red Blood Count 4.01 MIL/MM3 3.87 MIL/MM3 Hemoglobin 10.8 GM/DL 10.7 GM/DL Hematocrit 33.8 % 32.7 % Mean Corpuscular Volume 84.4 FL 84.5 FL Mean Corpuscular Hemoglobin 27.0 PG 27.5 PG Mean Corpuscular Hemoglobin 32.0 % 32.6 % Concent Red Cell Distribution Width 15.2 % 14.6 % Platelet Count 158 TH/MM3 153 TH/MM3 Mean Platelet Volume 11.6 FL 11.2 FL Neutrophils (%) (Auto) 84.5 % 75.4 % Lymphocytes (%) (Auto) 8.4 % 12.1 % Monocytes (%) (Auto) 5.0 % 7.9 % Eosinophils (%) (Auto) 1.8 % 4.1 % Basophils (%) (Auto) 0.3 % 0.5 % Neutrophils # (Auto) 7.9 TH/MM3 6.5 TH/MM3 Lymphocytes # (Auto) 0.8 TH/MM3 1.0 TH/MM3 Monocytes # (Auto) 0.5 TH/MM3 0.7 TH/MM3 Eosinophils # (Auto) 0.2 TH/MM3 0.4 TH/MM3 Basophils # (Auto) 0.0 TH/MM3 0.0 TH/MM3 CBC Comment DIFF FINAL DIFF FINAL Differential Comment Laboratory Tests Test 03/04/16 03/05/16 14:39 06:50 Sodium Level 143 MEQ/L 143 MEQ/L Potassium Level 4.5 MEQ/L 4.2 MEQ/L Chloride Level 111 MEQ/L 109 MEQ/L Carbon Dioxide Level 28.5 MEQ/L 28.4 MEQ/L Anion Gap 4 MEQ/L 6 MEQ/L Blood Urea Nitrogen 18 MG/DL 15 MG/DL Creatinine 0.41 MG/DL 0.35 MG/DL Estimat Glomerular Filtration 219 ML/MIN 263 ML/MIN Rate Random Glucose 133 MG/DL 105 MG/DL Calcium Level 8.5 MG/DL 8.3 MG/DL Total Bilirubin 0.4 MG/DL 0.2 MG/DL Aspartate Amino Transf 57 U/L 58 U/L (AST/SGOT) Alanine Aminotransferase 44 U/L 27 U/L (ALT/SGPT) Alkaline Phosphatase 52 U/L 54 U/L Total Protein 5.8 GM/DL 5.7 GM/DL Albumin 2.5 GM/DL 2.4 GM/DL Microbiology Date/Time Procedure Status Source Growth 03/04/16 11:32 Urine Culture - Preliminary Resulted Urine Catheterized Urine 03/04/16 21:11 Aerobic Blood Culture - Preliminary Resulted Blood Other NO GROWTH IN 2 DAYS 03/04/16 21:11 Anaerobic Blood Culture - Preliminary Resulted Blood Other NO GROWTH IN 2 DAYS 03/04/16 23:04 Aerobic Blood Culture - Preliminary Resulted Blood Other NO GROWTH IN 2 DAYS 03/04/16 23:04 Anaerobic Blood Culture - Preliminary Resulted Blood Other NO GROWTH IN 2 DAYS Imaging Chest X-Ray 03/04/16 0000 Signed Impressions: Service Date/Time: Friday, March 04, 2016 18:10 - CONCLUSION: No acute cardiopulmonary disease. Eugene Schmid MD Physical Exam GENERAL: No interaction, calm, looks comfortable SKIN: Cool and moist. No generalized rash. HEENT: [place] conjunctivae, no icterus, moist mucosa. NECK: Trach site looks ok. Supple RESPIRATORY: Coarse BS razia, with few rhonchi GASTROINTESTINAL: Abdomen soft, not distended. Bowel sounds normoactive. No guarding. PEG site looks okay. MUSCULOSKELETAL: No cyanosis No pedal edema. Contracted all 4 extremities. NEUROLOGICAL: Eyes open, Extremities contracted Peripheral IV line sites with no evidence of infection. ; Valdez in place, urine looks clear Assessment & Plan Remarks IMPRESSION New Sepsis sources: Tracheobronchitis and ESBL Kleb pneumo UTI MDR PSAE tracheobronchitis. ESBL MDR Kleb pneumo Cath associated UTI. Chronic respiratory failure on trach Chronic encephalopathy with underlying diagnosis of advanced dementia as well as advanced Parkinson's disease. Status post trach Status post gastrostomy tube with no evidence of infection. Stage II sacral decubitus ulcer present on admission. h/o Recurrent aspiration tube feed related in past. Recommendations Continue Meropenem IV (ASP: ESBL Kleb pneumo UTI) Continue Tobramycin nebs. Follow cultures Monitor progress Recommend once a month valdez change as for chronic patients. Bhavna Weeks MD Mar 06, 2016 12:41
[2016-03-06] MEDS: CHLORHEXIDINE GLUCONATE 0.12% 30 ML CUP MT SCH ×2 (14:15→21:48)
[2016-03-06] MEDS: ARTIFICIAL TEARS OPTH SOLN 15 ML BTL EACH EYE SCH ×2 (14:16→18:00)
[2016-03-06] MEDS: ENOXAPARIN SODIUM 40 MG/0.4 ML SYRINGE SQ SCH (21:48)
[2016-03-07] VITALS (10 sets, daily range): BP systolic 106–152; BP diastolic 57–80; PULSE 76–88; RESP 20–22; TEMP 96.6–99.3; O2SAT 94–99
[2016-03-07] MEDS: MEROPENEM INJ 500 MG in SODIUM CHLORIDE 0.9% INJ 100 ML IV SCH ×3 (00:45→18:00)
[2016-03-07] MEDS: BETHANECHOL CHL 10 MG TAB PO SCH ×3 (05:59→23:11)
[2016-03-07] MEDS: FREE WATER G-TUBE SCH ×5 (05:59→23:12)
[2016-03-07] MEDS: RESP: TOBRAMYCIN SULFATE 80 MG/2 ML NEB NEB SCH ×2 (08:36→20:57)
[2016-03-07] MEDS: SODIUM CHLORIDE 0.9% FLUSH 5 ML FLUSH IVF SCH ×2 (09:00→23:12)
[2016-03-07] MEDS: COLLAGENASE OINT 30 GM TUBE TOP SCH (09:00)
[2016-03-07] MEDS: LACTOBACILLUS ACIDOPHILUS TAB PO SCH ×3 (09:36→17:59)
[2016-03-07] MEDS: predniSONE 5 MG TAB PO SCH (09:36)
[2016-03-07] MEDS: CHLORHEXIDINE GLUCONATE 0.12% 30 ML CUP MT SCH ×2 (09:36→23:14)
[2016-03-07] MEDS: GABAPENTIN 300 MG CAP G-TUBE SCH ×2 (09:36→23:11)
[2016-03-07] MEDS: POTASSIUM CL 40 MEQ/30 ML LIQ UDC GT SCH (09:36)
[2016-03-07] MEDS: CARBIDOPA/LEVODOPA 25 MG/100 MG TAB GT SCH ×4 (09:36→23:11)
[2016-03-07] MEDS: FLUCONAZOLE 100 MG TAB PO SCH (09:37)
[2016-03-07] MEDS: LANSOPRAZOLE SOLUTAB 30 MG TAB NG SCH (09:37)
[2016-03-07] MEDS: PARoxetine HCL 20 MG TAB G-TUBE SCH (09:37)
[2016-03-07] MEDS: ARTIFICIAL TEARS OPTH SOLN 15 ML BTL EACH EYE SCH ×3 (09:37→18:00)
--- NOTE | 2016-03-07 09:57 | HHI.PR ---
Subjective Remarks Follow up sepsis, HCAP. The patient appears uncomfortable. He is diaphoretic. He has required frequent suctioning. Objective Vitals Vital Signs Date Time Temp Pulse Resp B/P Pulse Ox O2 Delivery O2 Flow Rate FiO2 03/07/16 08:38 99.0 83 20 120/67 94 03/07/16 04:40 95 25 03/07/16 04:00 97.2 88 22 127/59 95 03/07/16 01:58 Bi-Pap 03/07/16 00:22 96 30 03/07/16 00:00 99.3 88 20 119/68 94 03/06/16 22:05 81 28 141/82 97 03/06/16 20:00 99.2 90 22 94/70 92 03/06/16 16:37 95.7 78 26 109/57 88 03/06/16 12:09 98.7 88 23 127/74 96 I/O 03/06/16 03/06/16 03/06/16 03/07/16 03/07/16 03/07/16 07:00 15:00 23:00 07:00 15:00 23:00 Output Total 700 ml 1350 ml 700 ml Balance -700 ml -1350 ml -700 ml Output Urine Total 700 ml 1350 ml 700 ml # Bowel Movements 2 Result Diagram: 03/05/16 0650 03/05/16 0650 Imaging Last Impressions Chest X-Ray 03/04/16 0000 Signed Impressions: Service Date/Time: Friday, March 04, 2016 18:10 - CONCLUSION: No acute cardiopulmonary disease. Eugene Schmid MD Tube Change 02/26/16 0000 Signed Impressions: Service Date/Time: Friday, February 26, 2016 18:49 - CONCLUSION: Uncomplicated gastrojejunostomy tube exchange as above. Scott Goode MD Tube Check 02/12/16 0000 Signed Impressions: Service Date/Time: Friday, February 12, 2016 16:08 - CONCLUSION: Uncomplicated tube injection as above. Blaine Jackson MD Gastrostomy Tube Change 01/15/16 0000 Signed Impressions: Service Date/Time: Friday, January 15, 2016 12:28 - CONCLUSION: Successful GJ tube exchange as above. Scott Goode MD Abdomen X-Ray 01/12/16 1628 Signed Impressions: Service Date/Time: Tuesday, January 12, 2016 17:35 - CONCLUSION: No evidence of obstruction or free air. Reyes Jewell MD Abdomen Ultrasound 12/06/15 0000 Signed Impressions: Service Date/Time: Sunday, December 06, 2015 17:42 - CONCLUSION: 1. The gallbladder is unremarkable with no evidence of cholelithiasis. 2. Simple cyst in the left kidney. 3. Mild pyelocaliectasis in the right kidney. Salazar Thurman MD Upper Extremity Ultrasound 10/13/15 0000 Signed Impressions: Service Date/Time: Tuesday, October 13, 2015 09:51 - CONCLUSION: 1. No evidence of deep venous thrombosis. John Anderson MD Renal Ultrasound 10/07/15 0000 Signed Impressions: Service Date/Time: Wednesday, October 07, 2015 18:29 - CONCLUSION: 1. No acute findings. 3.6 cm left renal cyst. Putnam catheter in bladder. Amaury Ellsworth MD Tunnelled Chest Tube Removal 08/05/15 1100 Signed Impressions: Service Date/Time: Wednesday, August 05, 2015 11:00 - CONCLUSION: Uncomplicated chest tube removal. Blaine Jackson MD Chest Tube Change 07/31/15 0000 Signed Impressions: Service Date/Time: Friday, July 31, 2015 14:34 - CONCLUSION: Uncomplicated reposition of previously placed chest tube as above. Blaine Jackson MD Chest Tube Insertion 07/30/15 0000 Signed Impressions: Service Date/Time: July 14:50 - CONCLUSION: Uncomplicated chest tube placement as above. Blaine Jackson MD Catheter Change 07/27/15 0000 Signed Impressions: Service Date/Time: Monday, July 27, 2015 14:43 - CONCLUSION: Uncomplicated gastrostomy tube exchange as above. Blaine Jackson MD Chest CT 07/11/15 0000 Signed Impressions: Service Date/Time: Saturday, July 11, 2015 09:49 - CONCLUSION: Scattered patchy densities significantly improved from previous study. Tiny anterior right basilar pneumothorax. Right-sided chest tube in good position. Néstor Matamoros MD Head CT 06/18/15 0573 Signed Impressions: Service Date/Time: June 19:31 - CONCLUSION: Diffuse atrophy unchanged. No acute intracranial findings. Kush Briscoe MD Abdomen/Pelvis CT 06/18/15 1906 Signed Impressions: Service Date/Time: June 19:36 - CONCLUSION: 1. Chronic nonspecific urinary bladder wall thickening. Bladder collapsed with Putnam catheter in place. 2. Chronic bilateral mid to lower lung zone groundglass opacity. 3. Nonobstructing left renal calculus. 4. Distended rectum. Kush Briscoe MD Objective Remarks General: Thin male in no acute distress. Appears uncomfortable. Diaphoretic. Heart: Regular rate and rhythm. No murmur. Lungs: Coarse breath sounds bilaterally. Breathing is nonlabored. Tracheostomy. Abdomen: Soft, nontender, nondistended. Extremities: No lower extremity edema. SCDs. Contractures of upper extremities. RUE swollen. Psych: Nonverbal. Neuro: Does not follow commands. Does not track. Skin: Blisters on RUE. Procedures 07/26- PEG replacement 07/29- right pigtail catheter placement for new pneumothorax Urinary Catheter: Yes Assessment to: Continue Putnam insert reason: Obstruction/Retention Vascular Central Line Catheter: No A/P Problem List: (1) Sepsis ICD Code: A41.9 Status: Acute (2) HCAP (healthcare-associated pneumonia) ICD Code: J18.9 Status: Acute (3) Fever ICD Code: R50.9 Status: Acute (4) Sepsis due to urinary tract infection ICD Code: A41.9 Status: Resolved (5) Chronic respiratory failure ICD Code: J96.10 Status: Chronic (6) Parkinson disease ICD Code: G20 Status: Chronic (7) UTI (urinary tract infection) ICD Code: N39.0 Status: Resolved (8) Encephalopathy ICD Code: G93.40 Status: Resolved (9) Feeding tube obstruction ICD Code: T85.598A Status: Resolved (10) Conjunctivitis ICD Code: H10.9 Status: Resolved (11) Hypotension ICD Code: I95.9 Status: Resolved Assessment and Plan Reviewed/updated 03/07/16. Patient appears uncomfortable and has been requiring suctioning this morning. He is diaphoretic. O2 sat 91%. Will give Tylenol. 1. Sepsis secondary to HCAP, UTI: Appreciate infectious disease recommendations. Sputum culture growing Pseudomonas. Chest x-ray on 03/02/16 shows right upper lobe infiltrate. Urine culture growing Klebsiella ESBL positive. Continue meropenem IV, tobramycin nebulized. 2. HCAP: Appreciate pulmonology and infectious disease recommendations. Continue supplemental oxygen, pulmonary toilet, sectioning. 3. Leukocytosis: Patient remains afebrile. 4. Parkinson's disease: Continue Sinemet. 5. Chronic respiratory failure: Tracheostomy. Appreciate pulmonology recommendations. Levsin as needed. Continue prednisone. DuoNeb's scheduled and as needed. Requiring BiPAP and suctioning. 6. Metabolic encephalopathy: Appreciate neurology recommendations. Continue treatment for Parkinson's disease. Zyprexa discontinued 02/26/16. Clonazepam discontinued 02/24/16. 7. Moderate protein calorie malnutrition: Continue tube feeds. PEG tube replaced on 02/26/16 by interventional radiology. 8. Bilateral lower extremity contractures: Continue PT. 9. Stage II decubitus ulcer: Continue wound care. Turn every 2 hours. 10. DVT prophylaxis: Lovenox. 11. GI prophylaxis: PPI. Discharge Planning Awaiting clinical improvement. Case management assisting with discharge planning. Problem Qualifiers (1) Fever: Qualified Code: R50.9 - Fever, unspecified fever cause (2) Chronic respiratory failure: Qualified Code: J96.10 - Chronic respiratory failure, unspecified whether with hypoxia or hypercapnia (3) UTI (urinary tract infection): Qualified Code: N30.00 - Acute cystitis without hematuria (4) Conjunctivitis: Qualified Code: H10.9 - Conjunctivitis of left eye, unspecified conjunctivitis type German Bernal MD Mar 07, 2016 09:57
[2016-03-07] MEDS: ACETAMINOPHEN 650 MG/20.3 ML UDC TUBE PRN ×2 (10:42→17:59)
--- NOTE | 2016-03-07 14:50 | HHI.IDPN ---
Subjective Subjective Remarks ID COVERAGE Notes reviewed Afebrile. WBC normal. BP intermittently low CXR clear Cultures reviewed is 55 y/o CM with multiple medical problems.Chronic encephalopathy with underlying diagnosis of advanced dementia as well as advanced Parkinson's disease. Status post trach, Status post gastrostomy tube, sacral decubitus ulcer, h/o Recurrent aspiration tube feed related in past. Antibiotics Meropenem IV Tobra neb Lines Peripheral IV with no e/o infection Past Medical History reviewed Allergies: Coded Allergies: *MDRO Multi-Drug Resistant Organism (Verified Adverse Reaction, Unknown, ESBL, carbapenem resistant Pseudomonas, 01/13/16) ESBL E. coli (urine) - 02/19/2015; ESBL K. pneumoniae (sputum-06/18/15, 08/03/15, 09/20/15,10/12/15, 11/27/15, 12/26/15, 01/09/16), (urine-08/03/15 & 11/27/15), MRSA PCR POSITIVE - 03/20/2015 MDR-Pseudomonas (sputum)- 08/18/15, 09/20/15, 10/2015 (Carbapenem resistant) Objective . Vital Signs Date Time Temp Pulse Resp B/P Pulse Ox O2 Delivery O2 Flow Rate FiO2 03/07/16 12:39 98.5 76 20 106/57 95 03/07/16 10:15 T-Piece 8.00 28 Humidified 03/07/16 08:38 99.0 83 20 120/67 94 03/07/16 08:36 98 T-piece 28 03/07/16 04:40 95 25 03/07/16 04:00 97.2 88 22 127/59 95 03/07/16 01:58 Bi-Pap 03/07/16 00:22 96 30 03/07/16 00:00 99.3 88 20 119/68 94 03/06/16 22:05 81 28 141/82 97 03/06/16 20:00 99.2 90 22 94/70 92 03/06/16 16:37 95.7 78 26 109/57 88 03/06/16 03/06/16 03/07/16 15:00 23:00 07:00 Output Total 1350 ml 700 ml Balance -1350 ml -700 ml Output Urine Total 1350 ml 700 ml # Bowel Movements 2 . Microbiology Date/Time Procedure Status Source Growth 03/04/16 21:11 Aerobic Blood Culture - Preliminary Resulted Blood Other NO GROWTH IN 3 DAYS 03/04/16 21:11 Anaerobic Blood Culture - Preliminary Resulted Blood Other NO GROWTH IN 3 DAYS 03/04/16 23:04 Aerobic Blood Culture - Preliminary Resulted Blood Other NO GROWTH IN 3 DAYS 03/04/16 23:04 Anaerobic Blood Culture - Preliminary Resulted Blood Other NO GROWTH IN 3 DAYS Imaging Chest X-Ray 03/04/16 0000 Signed Impressions: Service Date/Time: Friday, March 04, 2016 18:10 - CONCLUSION: No acute cardiopulmonary disease. Eugene Schmid MD Physical Exam GENERAL: No interaction, calm, looks comfortable SKIN: Cool and moist. No generalized rash. HEENT: [place] conjunctivae, no icterus, moist mucosa. NECK: Trach site looks ok. Supple RESPIRATORY: Coarse BS razia, with few rhonchi GASTROINTESTINAL: Abdomen soft, not distended. Bowel sounds normoactive. No guarding. PEG site looks okay. MUSCULOSKELETAL: No cyanosis No pedal edema. Contracted all 4 extremities. NEUROLOGICAL: Eyes open, Extremities contracted Peripheral IV line sites with no evidence of infection. ; Valdez in place, urine looks clear Assessment & Plan Remarks IMPRESSION New Sepsis sources: Tracheobronchitis and ESBL Kleb pneumo UTI MDR PSAE tracheobronchitis. ESBL MDR Kleb pneumo Cath associated UTI. Chronic respiratory failure on trach Chronic encephalopathy with underlying diagnosis of advanced dementia as well as advanced Parkinson's disease. Status post trach Status post gastrostomy tube with no evidence of infection. Stage II sacral decubitus ulcer present on admission. h/o Recurrent aspiration tube feed related in past. Heena Cath associated UTI Recommendations Continue Meropenem IV (ASP: ESBL Kleb pneumo UTI) Continue Tobramycin nebs. Start Diflucan stop date entered. Follow cultures Monitor progress Recommend once a month valdez change as for chronic patients. Trina Moss MD Mar 07, 2016 14:50
[2016-03-07] MEDS: SODIUM CHLOR 0.9% 1000 ML INJ 1,000 ML IV SCH (20:30)
[2016-03-07] MEDS: ENOXAPARIN SODIUM 40 MG/0.4 ML SYRINGE SQ SCH (23:12)
[2016-03-08] VITALS (9 sets, daily range): BP systolic 102–137; BP diastolic 59–77; PULSE 63–84; RESP 20–24; TEMP 96.7–98.3; O2SAT 95–99
[2016-03-08] MEDS: MEROPENEM INJ 500 MG in SODIUM CHLORIDE 0.9% INJ 100 ML IV SCH ×3 (01:39→16:22)
[2016-03-08] MEDS: BETHANECHOL CHL 10 MG TAB PO SCH ×2 (05:54→12:21)
[2016-03-08] MEDS: FREE WATER G-TUBE SCH ×3 (05:55→16:22)
[2016-03-08] MEDS: SODIUM CHLOR 0.9% 1000 ML INJ 1,000 ML IV SCH ×2 (06:20→16:20)
[2016-03-08 07:38] LABS: AUTOMATED NEUTROPHIL # 5.1 TH/MM3 (1.8-7.7); BASOPHIL # 0.1 TH/MM3 (0-0.2); BASOPHIL % 0.9 % (0.0-2.0); EOSINOPHIL # 0.4 TH/MM3 (0-0.4); EOSINOPHIL % 5.4 % (0.0-4.0); HEMATOCRIT 32.6 % (39.0-51.0); HEMO FLAGS DIFF FINAL; LYMPH % 14.8 % (9.0-44.0); LYMPHOCYTE # 1.1 TH/MM3 (1.0-4.8); MEAN CELL VOLUME 84.1 FL (80.0-100.0); MEAN CORPUSCULAR HGB CONC 32.1 % (32.0-36.0); MONO % 8.3 % (0.0-8.0); NEUT % 70.6 % (16.0-70.0); PLATELET COUNT 184 TH/MM3 (150-450); RED BLOOD COUNT 3.88 MIL/MM3 (4.50-5.90); RED CELL DISTRIBUTION WIDTH 15.3 % (11.6-17.2); WHITE BLOOD COUNT 7.2 TH/MM3 (4.0-11.0)
[2016-03-08 08:00] LABS: BICARBONATE 30.3 MEQ/L (21.0-32.0); POTASSIUM 4.3 MEQ/L (3.5-5.1)
[2016-03-08] MEDS: LANSOPRAZOLE SOLUTAB 30 MG TAB NG SCH (08:09)
[2016-03-08] MEDS: FLUCONAZOLE 100 MG TAB PO SCH (08:10)
[2016-03-08] MEDS: PARoxetine HCL 20 MG TAB G-TUBE SCH (08:10)
[2016-03-08] MEDS: LACTOBACILLUS ACIDOPHILUS TAB PO SCH ×3 (08:10→16:18)
[2016-03-08] MEDS: POTASSIUM CL 40 MEQ/30 ML LIQ UDC GT SCH (08:10)
[2016-03-08] MEDS: CARBIDOPA/LEVODOPA 25 MG/100 MG TAB GT SCH ×3 (08:11→16:19)
[2016-03-08] MEDS: GABAPENTIN 300 MG CAP G-TUBE SCH (08:11)
[2016-03-08] MEDS: predniSONE 5 MG TAB PO SCH (08:11)
[2016-03-08] MEDS: SODIUM CHLORIDE 0.9% FLUSH 5 ML FLUSH IVF SCH ×2 (08:22→21:00)
[2016-03-08] MEDS: CHLORHEXIDINE GLUCONATE 0.12% 30 ML CUP MT SCH (08:23)
[2016-03-08] MEDS: ARTIFICIAL TEARS OPTH SOLN 15 ML BTL EACH EYE SCH ×3 (08:23→16:22)
[2016-03-08] MEDS: RESP: TOBRAMYCIN SULFATE 80 MG/2 ML NEB NEB SCH ×2 (08:47→19:49)
--- NOTE | 2016-03-08 10:06 | HHI.PR ---
Subjective Remarks No major overnight events Patient is awake and alert Nonverbal No reports of diarrhea or rash Patient tries to verbalize when asked questions. Objective Vitals Vital Signs Date Time Temp Pulse Resp B/P Pulse Ox O2 Delivery O2 Flow Rate FiO2 03/08/16 08:48 98 T-piece 5.00 28 03/08/16 08:34 T-Piece 5.00 28 Humidified 03/08/16 08:32 96.8 66 20 102/66 99 03/08/16 06:30 97.4 68 24 115/70 99 03/08/16 00:45 98.3 79 23 115/67 98 03/08/16 00:39 96 30 03/07/16 23:10 T-Piece 8.00 28 Humidified 03/07/16 21:01 99 T-piece 28 03/07/16 20:40 97.0 79 22 117/80 99 03/07/16 16:13 96.6 85 20 152/77 95 03/07/16 12:39 98.5 76 20 106/57 95 03/07/16 10:15 T-Piece 8.00 28 Humidified I/O 03/07/16 03/07/16 03/07/16 03/08/16 03/08/16 03/08/16 07:00 15:00 23:00 07:00 15:00 23:00 Intake Total 0 ml 484 ml Output Total 700 ml 500 ml 200 ml 900 ml Balance -700 ml -500 ml -200 ml -416 ml Intake Oral 0 ml 0 ml IV Total 484 ml Output Urine Total 700 ml 500 ml 200 ml 900 ml # Bowel Movements 2 0 2 Result Diagram: 03/08/1615 03/08/1617 Imaging Last Impressions Chest X-Ray 03/04/16 0000 Signed Impressions: Service Date/Time: Friday, March 04, 2016 18:10 - CONCLUSION: No acute cardiopulmonary disease. Eugene Schmid MD Tube Change 02/26/16 0000 Signed Impressions: Service Date/Time: Friday, February 26, 2016 18:49 - CONCLUSION: Uncomplicated gastrojejunostomy tube exchange as above. Scott Goode MD Tube Check 02/12/16 0000 Signed Impressions: Service Date/Time: Friday, February 12, 2016 16:08 - CONCLUSION: Uncomplicated tube injection as above. Blaine Jackson MD Gastrostomy Tube Change 01/15/16 0000 Signed Impressions: Service Date/Time: Friday, January 15, 2016 12:28 - CONCLUSION: Successful GJ tube exchange as above. Scott Goode MD Abdomen X-Ray 01/12/16 1628 Signed Impressions: Service Date/Time: Tuesday, January 12, 2016 17:35 - CONCLUSION: No evidence of obstruction or free air. Reyes Jewell MD Abdomen Ultrasound 12/06/15 0000 Signed Impressions: Service Date/Time: Sunday, December 06, 2015 17:42 - CONCLUSION: 1. The gallbladder is unremarkable with no evidence of cholelithiasis. 2. Simple cyst in the left kidney. 3. Mild pyelocaliectasis in the right kidney. Salazar Thurman MD Upper Extremity Ultrasound 10/13/15 0000 Signed Impressions: Service Date/Time: Tuesday, October 13, 2015 09:51 - CONCLUSION: 1. No evidence of deep venous thrombosis. John Anderson MD Renal Ultrasound 10/07/15 0000 Signed Impressions: Service Date/Time: Wednesday, October 07, 2015 18:29 - CONCLUSION: 1. No acute findings. 3.6 cm left renal cyst. Putnam catheter in bladder. Amaury Ellsworth MD Tunnelled Chest Tube Removal 08/05/15 1100 Signed Impressions: Service Date/Time: Wednesday, August 05, 2015 11:00 - CONCLUSION: Uncomplicated chest tube removal. Blaine Jackson MD Chest Tube Change 07/31/15 0000 Signed Impressions: Service Date/Time: Friday, July 31, 2015 14:34 - CONCLUSION: Uncomplicated reposition of previously placed chest tube as above. Blaine Jackson MD Chest Tube Insertion 07/30/15 0000 Signed Impressions: Service Date/Time: July 14:50 - CONCLUSION: Uncomplicated chest tube placement as above. Blaine Jackson MD Catheter Change 07/27/15 0000 Signed Impressions: Service Date/Time: Monday, July 27, 2015 14:43 - CONCLUSION: Uncomplicated gastrostomy tube exchange as above. Blaine Jackson MD Chest CT 07/11/15 0000 Signed Impressions: Service Date/Time: Saturday, July 11, 2015 09:49 - CONCLUSION: Scattered patchy densities significantly improved from previous study. Tiny anterior right basilar pneumothorax. Right-sided chest tube in good position. Néstor Matamoros MD Head CT 06/18/151902 Signed Impressions: Service Date/Time: June 19:31 - CONCLUSION: Diffuse atrophy unchanged. No acute intracranial findings. Kush Briscoe MD Abdomen/Pelvis CT 06/18/151902 Signed Impressions: Service Date/Time: June 19:36 - CONCLUSION: 1. Chronic nonspecific urinary bladder wall thickening. Bladder collapsed with Putnam catheter in place. 2. Chronic bilateral mid to lower lung zone groundglass opacity. 3. Nonobstructing left renal calculus. 4. Distended rectum. Kush Briscoe MD Objective Remarks GENERAL: Cachectic patient with limbs contracted. Eyes open. SKIN: Warm and dry. HEAD: Normocephalic. EYES: Left erythematous and with drainage. NECK: 8.0 Distal XLT trach in place CARDIOVASCULAR: Tachycardic without murmurs, gallops, or rubs. RESPIRATORY: There is some rhonchi auscultated on the right upper lung with mild espiratory wheeze, mild coarse breath sounds on the right lung diffusely. GASTROINTESTINAL: Abdomen soft, non-tender, nondistended. MUSCULOSKELETAL: Contracted limbs. Wound on lower back currently bandaged. NEURO: Eyes are open, not tracking. Procedures 07/26- PEG replacement 07/29- right pigtail catheter placement for new pneumothorax Medications and IVs Current Medications Medications (Trade) Dose Ordered Sig/Jassi Route Start Time Stop Time Status Last Admin (NS Flush) 2 ml UNSCH PRN IVF 06/18/15 21:30 02/01/16 03:04 (NS Flush) 2 ml BID IVF 06/19/15 09:00 03/07/16 23:12 (Tylenol 650 Mg/ 20 ml Liq) 650 mg Q6H PRN TUBE 06/18/15 21:30 03/08/16 16:19 (Tears Naturale Opth Soln) 1 drop TID EACH EYE 06/19/15 09:00 03/08/16 16:22 (Zofran Inj) 4 mg Q6H PRN IV 06/18/15 21:30 11/26/15 11:54 (Neurontin) 300 mg BID G-TUBE 06/19/15 09:00 03/08/16 08:11 (Lactinex) 1 tab TID PO 06/19/15 09:00 03/08/16 16:18 (Paxil) 20 mg DAILY G-TUBE 06/19/15 09:00 03/08/16 08:10 (Pill Splitter) 1 ea UNSCH PRN OTHER 06/19/15 03:30 06/28/15 09:35 (Prevacid Odt) 30 mg DAILY NG 07/08/15 09:00 03/08/16 08:09 (Morphine Inj) 2 mg Q3H PRN IV PUSH 07/28/15 00:45 02/27/16 02:32 (Lovenox Inj) 40 mg Q24H SQ 08/09/15 22:00 03/07/16 23:12 ([place]dale 5-325 Mg) 1 tab Q6H PRN PO 08/15/15 15:45 03/04/16 21:22 (Sublimaze Inj) 50 mcg Q2H PRN IV PUSH 08/15/15 15:45 01/15/16 13:10 (Santyl Oint) 1 applic DAILY TOP 08/21/15 09:00 03/08/16 16:19 (Levsin Liq) 0.125 mg Q4H PRN PO 09/06/15 11:00 03/02/16 00:04 (Brethine Inj) 1 mg UNSCH PRN SQ 12/06/15 06:45 (Ativan Inj) 1 mg Q3HR PRN IVP 12/15/15 17:00 02/27/16 02:31 (Deltasone) 2.5 mg DAILY PO 12/23/15 09:00 03/08/16 08:11 (Free Water) 200 ml Q6HR G-TUBE 01/03/16 18:00 03/08/16 16:22 (KCl 40 Meq/30 ml Liq) 20 meq DAILY GT 01/08/16 17:00 03/08/16 08:10 (Urecholine) 10 mg Q8HR PO 01/13/16 22:00 03/08/16 12:21 (Sinemet 25-100 Mg) 1.5 tab QID GT 01/14/16 21:00 03/08/16 16:19 Chlorhexidine Gluconate 15 ml 15 ml BID@08,20 MT 02/04/16 10:20 03/08/16 08:23 Sodium Chloride 1,000 ml @ 100 mls/hr Q10H IV 03/04/16 12:30 03/08/16 16:20 (Merrem Inj/NS Inj) 100 ml @ 200 mls/hr Q8H IV 03/04/16 17:00 03/08/16 16:22 (Diflucan) 100 mg DAILY PO 03/07/16 09:00 03/15/16 08:59 03/08/16 08:10 A/P Problem List: (1) Sepsis ICD Code: A41.9 Status: Acute (2) HCAP (healthcare-associated pneumonia) ICD Code: J18.9 Status: Acute (3) Fever ICD Code: R50.9 Status: Resolved (4) Sepsis due to urinary tract infection ICD Code: A41.9 Status: Resolved (5) Chronic respiratory failure ICD Code: J96.10 Status: Chronic (6) Parkinson disease ICD Code: G20 Status: Chronic (7) UTI (urinary tract infection) ICD Code: N39.0 Status: Resolved (8) Encephalopathy ICD Code: G93.40 Status: Resolved (9) Feeding tube obstruction ICD Code: T85.598A Status: Resolved (10) Conjunctivitis ICD Code: H10.9 Status: Resolved (11) Hypotension ICD Code: I95.9 Status: Resolved Assessment and Plan (1) Sepsis Plan: Due to HCAP. CXR on 03/02 shows Right upper lobe infiltrate. Appreciate ID input. Sputum culture is growing pseudomonas, urine culture is growing Klebsiella pneumonia ESBL positive monitor temps montor vital signs Continue IV fluids, IV antibiotics as per ID recommendations. The patient is currently on IV Meropenem and Tobramycin nebs. (2) HCAP (healthcare-associated pneumonia) Plan: As above Pulmonary following, recommendations greatly appreciated. Supplemental o2 pulmonary toilette suctioning (3) Fever Plan: Due to sepsis as above. Fevers have resolved Continue tylenol as needed (4) Sepsis due to urinary tract infection Plan: ID consulted. The patient was on IV antibiotics as per infectious disease. Status post Zosyn. Status post vancomycin and Levaquin as well as tobramycin nebulization discontinued 02/11/16. ID was reconsulted for UTI. Treated with fluconazole with a stop date on 02/27/16. (5) Chronic respiratory failure Plan: Patient on tracheostomy. Tolerating TPs. Status post recurrent right pneumothorax status post pigtail catheter removal. Last chest x-ray was stable on 02/23/16 Pulmonary following. Continue BiPAP at night. Suction secretions as needed Patient on by mouth steroids, on prednisone 2.5 mg by mouth daily Continue DuoNeb's 4 times a day and when needed. Status post colistin nebs and Solu-Medrol. (6) Parkinson disease Plan: Continue Sinemet. Seems to be stable. (7) UTI (urinary tract infection) Plan: K pneumonia escl positive UTI ID consulted. Change Putnam catheter monthly. antibioticss as per ID (8) Encephalopathy Plan: Likely metabolic encephalopathy. Neuro was consulted. CT head 06/18/15 showed diffuse atrophy unchanged. No acute intrapelvic findings. The patient is alert and nonverbal. Parkinson's medications were increased by neurology. Zyprexa was discontinued in 02/25. Continue to wean clonazepam. Change to every 48 hours on 02/13. He was discontinued on 02/23. (9) Feeding tube obstruction Plan: Feeding tube working well. Patient is status post PEG for moderate port protein, malnutrition. It was some concerns for hematemesis on 12/05. GI evaluated patient. Gastric was negative and hemoglobin has been stable. However J-tube was not function 02/25 and he was replaced by interventional radiology. Continue senna and Colace for bowel regimen here in Continue PPI Continue to feedings which the patient tolerating well. (10) Conjunctivitis Plan: Eye drainage and erythema have resolved. Sp treatment with Polytrim ophthalmic solution. GI prophylaxis: PPI. Stool softener. When necessary for constipation. DVT prophylaxis: Lovenox Discharge Planning Continue to monitor in the medical floor. Problem Qualifiers (1) Fever: Qualified Code: R50.9 - Fever, unspecified fever cause (2) Chronic respiratory failure: Qualified Code: J96.10 - Chronic respiratory failure, unspecified whether with hypoxia or hypercapnia (3) UTI (urinary tract infection): Qualified Code: N30.00 - Acute cystitis without hematuria (4) Conjunctivitis: Qualified Code: H10.9 - Conjunctivitis of left eye, unspecified conjunctivitis type Shon Jordan MD Mar 08, 2016 10:06
[2016-03-08] MEDS: ACETAMINOPHEN 650 MG/20.3 ML UDC TUBE PRN (16:19)
[2016-03-08] MEDS: COLLAGENASE OINT 30 GM TUBE TOP SCH (16:19)
[2016-03-09] VITALS (9 sets, daily range): BP systolic 98–133; BP diastolic 65–75; PULSE 62–88; RESP 20–32; TEMP 96.9–98.7; O2SAT 93–97
[2016-03-09] MEDS: CARBIDOPA/LEVODOPA 25 MG/100 MG TAB GT SCH ×5 (01:02→23:50)
[2016-03-09] MEDS: GABAPENTIN 300 MG CAP G-TUBE SCH ×3 (01:02→23:50)
[2016-03-09] MEDS: ENOXAPARIN SODIUM 40 MG/0.4 ML SYRINGE SQ SCH ×2 (01:02→23:51)
[2016-03-09] MEDS: BETHANECHOL CHL 10 MG TAB PO SCH ×4 (01:02→23:50)
[2016-03-09] MEDS: CHLORHEXIDINE GLUCONATE 0.12% 30 ML CUP MT SCH ×3 (01:03→23:51)
[2016-03-09] MEDS: SODIUM CHLOR 0.9% 1000 ML INJ 1,000 ML IV SCH ×2 (01:03→12:36)
[2016-03-09] MEDS: FREE WATER G-TUBE SCH ×4 (01:03→18:16)
[2016-03-09] MEDS: MEROPENEM INJ 500 MG in SODIUM CHLORIDE 0.9% INJ 100 ML IV SCH ×3 (01:03→18:16)
[2016-03-09] MEDS: SODIUM CHLORIDE 0.9% FLUSH 5 ML FLUSH IVF SCH (09:00)
[2016-03-09] MEDS: RESP: TOBRAMYCIN SULFATE 80 MG/2 ML NEB NEB SCH ×2 (09:00→20:03)
[2016-03-09] MEDS: COLLAGENASE OINT 30 GM TUBE TOP SCH (09:00)
[2016-03-09] MEDS: PARoxetine HCL 20 MG TAB G-TUBE SCH (09:34)
[2016-03-09] MEDS: LACTOBACILLUS ACIDOPHILUS TAB PO SCH ×3 (09:34→18:16)
[2016-03-09] MEDS: POTASSIUM CL 40 MEQ/30 ML LIQ UDC GT SCH (09:35)
[2016-03-09] MEDS: LANSOPRAZOLE SOLUTAB 30 MG TAB NG SCH (09:35)
[2016-03-09] MEDS: predniSONE 5 MG TAB PO SCH (09:35)
[2016-03-09] MEDS: FLUCONAZOLE 100 MG TAB PO SCH (09:35)
[2016-03-09] MEDS: ARTIFICIAL TEARS OPTH SOLN 15 ML BTL EACH EYE SCH ×3 (09:47→18:16)
--- NOTE | 2016-03-09 10:48 | HHI.PR ---
Subjective Remarks Resting in bed comfortably Still on T piece oxygen No acute issue Continue antibiotic per ID recommendation Objective Vitals Vital Signs Date Time Temp Pulse Resp B/P Pulse Ox O2 Delivery O2 Flow Rate FiO2 03/09/16 09:00 96 T-piece 28 03/09/16 08:00 97.0 62 22 98/65 95 03/09/16 05:15 97.3 80 20 120/72 97 03/09/16 00:25 97 30 03/09/16 00:22 97.4 75 22 133/75 95 03/08/16 20:21 96.7 84 21 137/77 99 03/08/16 19:53 99 T-piece 03/08/16 17:16 97.4 76 20 118/66 95 03/08/16 12:29 98.0 63 20 110/59 99 I/O 03/08/16 03/08/16 03/08/16 03/09/16 03/09/16 03/09/16 07:00 15:00 23:00 07:00 15:00 23:00 Intake Total 484 ml Output Total 900 ml 1000 ml 450 ml 1100 ml Balance -416 ml -1000 ml -450 ml -1100 ml Intake Oral 0 ml IV Total 484 ml Output Urine Total 900 ml 1000 ml 450 ml 1100 ml # Bowel Movements 2 0 1 Result Diagram: 03/08/1671403/08/16716 Objective Remarks GENERAL: Cachectic, contracted patient, chronic ill-looking, in no apparent distress. CARDIOVASCULAR: Regular rate and rhythm without murmurs, gallops, or rubs. RESPIRATORY: fair air entry, few crackles bibasilar GASTROINTESTINAL: Abdomen soft, non-tender, nondistended. Normal active bowel sounds PEG tube in place MUSCULOSKELETAL: Lower extremity in crossover contraction , positive pedal pulses,. NEURO: doesn't follow commands, spontaneous movement of upper or lower extremity, doesn't answer question Procedures 07/26- PEG replacement 07/29- right pigtail catheter placement for new pneumothorax A/P Problem List: (1) Sepsis ICD Code: A41.9 Status: Acute (2) HCAP (healthcare-associated pneumonia) ICD Code: J18.9 Status: Acute (3) Fever ICD Code: R50.9 Status: Resolved (4) Sepsis due to urinary tract infection ICD Code: A41.9 Status: Resolved (5) Chronic respiratory failure ICD Code: J96.10 Status: Chronic (6) Parkinson disease ICD Code: G20 Status: Chronic (7) UTI (urinary tract infection) ICD Code: N39.0 Status: Resolved (8) Encephalopathy ICD Code: G93.40 Status: Resolved (9) Feeding tube obstruction ICD Code: T85.598A Status: Resolved (10) Conjunctivitis ICD Code: H10.9 Status: Resolved (11) Hypotension ICD Code: I95.9 Status: Resolved Assessment and Plan 03/09/16: Continue antibiotic per ID recommendation A/P: New Sepsis sources: Tracheobronchitis and ESBL Kleb pneumo UTI MDR PSAE tracheobronchitis. ESBL MDR Kleb pneumo Cath associated UTI. h/o Recurrent aspiration tube feed related in past. Heena Cath associated UTI -Continue Meropenem IV (ASP: ESBL Kleb pneumo UTI) -Continue Tobramycin nebs. -Start Diflucan stop date entered. -Follow cultures -Monitor progress Chronic respiratory failure Chronic tracheostomy. Tolerated T piece. S/P recurrent right pneumothorax status post pigtail catheter removal. Currently on 28% oxygen 01/21. - pulmonology consulted. continue bipap at night. - Suction secretions and Levsin as needed -on low dose prednisone 2.5 mg daily by pulmonology - Duo nebs 4 times a day and when necessary. S/p colistin nebs and Solumedrol. Metabolic Encephalopathy Parkinson's disease underlying. neuro consulted . CT head 06/18/15: - diffuse atrophy unchanged. No acute intracranial findings. - Continue cognitive efforts , sinemet , s/p zyprexa Malnutrition/protein calorie - moderate Status post PEG. Concern for hematemesis 12/05. GI evaluated pt. Gastroccult was negative and hemoglobin has been stable. Tolerating TFs 01/21. - 01/14. Switch to GJ tube due to aspiration. Consulting IR to evaluate GJ tube 01/19. - Current Colace/senna for bowel regimen. - continue PPI.- Prevacid. - 02/03: J tube replacement due to dysfunction Bilateral lower extremity Contractures Stage II DU. - Wound care team following. - Continue physical therapy. - turn q 2 hours s/p b/l conjunctivitis : s/p abx eye drop GI prophylaxis: PPI. Stool softener PRN constipation. DVT PPx: Lovenox Problem Qualifiers (1) Fever: Qualified Code: R50.9 - Fever, unspecified fever cause (2) Chronic respiratory failure: Qualified Code: J96.10 - Chronic respiratory failure, unspecified whether with hypoxia or hypercapnia (3) UTI (urinary tract infection): Qualified Code: N30.00 - Acute cystitis without hematuria (4) Conjunctivitis: Qualified Code: H10.9 - Conjunctivitis of left eye, unspecified conjunctivitis type Jb Ervin MD Mar 09, 2016 10:48
--- NOTE | 2016-03-09 18:35 | HHI.PR ---
Subjective Remarks Awake and responds to some questions, and 0n a T bar FIO2 30 % . has no Fever . .On Bipap at HS. O2 Sat 98. Lethargic. No change overall. Objective Vital Signs Date Time Temp Pulse Resp B/P Pulse Ox O2 Delivery O2 Flow Rate FiO2 03/09/16 12:00 96.9 75 24 108/72 96 03/09/16 09:00 96 T-piece 28 03/09/16 08:00 97.0 62 22 98/65 95 03/09/16 05:15 97.3 80 20 120/72 97 03/09/16 00:25 97 30 03/09/16 00:22 97.4 75 22 133/75 95 03/08/16 20:21 96.7 84 21 137/77 99 03/08/16 19:53 99 T-piece 28 I/O 03/08/16 03/08/16 03/08/16 03/09/16 03/09/16 03/09/16 07:00 15:00 23:00 07:00 15:00 23:00 Intake Total 484 ml 806 ml Output Total 900 ml 1000 ml 450 ml 1100 ml Balance -416 ml -1000 ml -450 ml -1100 ml 806 ml Intake Oral 0 ml IV Total 484 ml 806 ml Output Urine Total 900 ml 1000 ml 450 ml 1100 ml # Bowel Movements 2 0 1 Result Diagram: 03/08/16 0715 03/08/16 0717 Objective Remarks This is a thin white male who is , awake with a trach tube in place. HEENT: Pupils are equal and reactive to light. CHEST:Decreased breath sounds,with Occ Bilateral wheeze. CARDIOVASCULAR: S1 and S2 is normal.No murmur. ABDOMEN: Soft, nondistended. BS +. He has a PEG and J tube in place. EXTREMITIES: Contractures.muscle wasting. NEURO: Awake and has weak extremities. Skin is warm. Assessment and Plan Assessment and Plan IMPRESSION 1. Chronic Respiratory failure. 2. Sepsis, Aspiration. 3. Left basal Pneumonia, Resolved 4. Basal pneumonia 5. Parkinson's disease 6. Dementia. 7. Severe Deconditioning. Plan : 1. Continue on Bipap 06/20, FIo2 30 % at 11 pm to 7 am. 2. Nebs Bid , duoneb. 3. Tube feeds at 40 CC 4. T Bar 28 % daytime. 5. CXR in am 6. Cont Trach toilet and lavage. 7. Antibiotics per ID. 1 Darren Kiser MD Mar 09, 2016 18:35
[2016-03-09] MEDS: ACETAMINOPHEN/HYDROcodone 325 MG/5 MG TAB PO PRN (23:49)
[2016-03-10] VITALS (9 sets, daily range): BP systolic 98–122; BP diastolic 57–73; PULSE 7–84; RESP 20–32; TEMP 96.7–98.9; O2SAT 93–100
[2016-03-10] MEDS: MEROPENEM INJ 500 MG in SODIUM CHLORIDE 0.9% INJ 100 ML IV SCH ×3 (00:26→17:15)
[2016-03-10] MEDS: SODIUM CHLORIDE 0.9% FLUSH 5 ML FLUSH IVF SCH ×3 (00:26→21:00)
[2016-03-10] MEDS: FREE WATER G-TUBE SCH ×4 (00:26→18:00)
[2016-03-10] MEDS: SODIUM CHLOR 0.9% 1000 ML INJ 1,000 ML IV SCH ×3 (00:27→23:37)
[2016-03-10] MEDS: BETHANECHOL CHL 10 MG TAB PO SCH ×3 (05:35→23:35)
--- NOTE | 2016-03-10 06:22 | RADRPT ---
EXAM DATE/TIME: 03/10/2016 05:48 [facility] COMPARISON: CHEST PA & LAT, March 04, 2016, 18:10. INDICATIONS : Shortness of breath. MEDICAL HISTORY : Hypertension. Diabetes mellitus type II. SURGICAL HISTORY : Trach. ENCOUNTER: Subsequent ACUITY: 1 week PAIN SCORE: Non-responsive. LOCATION: Bilateral chest FINDINGS: Mild worsening bilateral airspace disease, basilar and upper lobe predominant on the left, upper lobe predominant on the right. Small left pleural effusion evident. I don't see a pneumothorax. Heart size stable, normal. Trach collar again noted. CONCLUSION: Modest worsening bilateral airspace opacities as above. Erlin Escobar MD on March 10, 2016 at 6:19 Board Certified Radiologist. This report was verified electronically.
[2016-03-10] MEDS: CHLORHEXIDINE GLUCONATE 0.12% 30 ML CUP MT SCH ×2 (08:00→23:36)
[2016-03-10] MEDS: ARTIFICIAL TEARS OPTH SOLN 15 ML BTL EACH EYE SCH ×3 (09:00→18:00)
[2016-03-10] MEDS: COLLAGENASE OINT 30 GM TUBE TOP SCH (09:00)
[2016-03-10] MEDS: POTASSIUM CL 40 MEQ/30 ML LIQ UDC GT SCH (10:10)
[2016-03-10] MEDS: LACTOBACILLUS ACIDOPHILUS TAB PO SCH ×3 (10:12→17:17)
[2016-03-10] MEDS: predniSONE 5 MG TAB PO SCH (10:13)
[2016-03-10] MEDS: CARBIDOPA/LEVODOPA 25 MG/100 MG TAB GT SCH ×4 (10:14→23:34)
[2016-03-10] MEDS: GABAPENTIN 300 MG CAP G-TUBE SCH ×2 (10:14→23:33)
[2016-03-10] MEDS: LANSOPRAZOLE SOLUTAB 30 MG TAB NG SCH (10:14)
[2016-03-10] MEDS: FLUCONAZOLE 100 MG TAB PO SCH (10:15)
[2016-03-10] MEDS: PARoxetine HCL 20 MG TAB G-TUBE SCH (10:15)
--- NOTE | 2016-03-10 12:59 | HHI.PR ---
Subjective Remarks Awake and responds to some questions, and 0n a T bar FIO2 30 % . has no Fever On Bipap at HS. O2 Sat 98. Lethargic. CXR is worse . On antibiotics per ID. Objective Vital Signs Date Time Temp Pulse Resp B/P Pulse Ox O2 Delivery O2 Flow Rate FiO2 03/10/16 12:00 97.2 73 20 116/70 98 03/10/16 08:00 97.9 73 24 115/68 97 03/10/16 04:33 98.9 70 32 107/57 98 03/10/16 02:35 98 30 03/10/16 00:00 97.8 84 30 101/58 95 03/09/16 20:19 95 30 03/09/16 20:00 98.7 88 32 104/73 93 03/09/16 16:00 97.0 72 22 106/70 95 03/09/16 14:00 T-Piece 8.00 28 Humidified I/O 03/09/16 03/09/16 03/09/16 03/10/16 03/10/16 03/10/16 07:00 15:00 23:00 07:00 15:00 23:00 Intake Total 806 ml Output Total 1100 ml 1200 ml 1300 ml 200 ml Balance -1100 ml -394 ml -1300 ml -200 ml IV Total 806 ml Output Urine Total 1100 ml 1200 ml 1300 ml 200 ml # Bowel Movements 1 4 Result Diagram: 03/08/1615 03/08/1617 Objective Remarks This is a thin white male who is , awake with a trach tube in place.Trying to talk. HEENT: Pupils are equal and reactive to light. CHEST:Decreased breath sounds,with Occ Bilateral wheeze.Basal crackles. CARDIOVASCULAR: S1 and S2 is normal.No murmur. ABDOMEN: Soft, nondistended. BS +. He has a PEG and J tube in place. EXTREMITIES: Contractures.muscle wasting. NEURO: Awake and has weak extremities. Skin is warm. Assessment and Plan Assessment and Plan IMPRESSION 1. Chronic Respiratory failure. 2. Sepsis, Aspiration. 3. Left basal Pneumonia, Resolved 4. Bi Basal pneumonia 5. Parkinson's disease 6. Dementia. 7. Severe Deconditioning. Plan : 1. Continue on Bipap /, FIo2 30 % at 11 pm to 7 am. 2. Nebs Bid , duoneb. 3. Tube feeds at 40 CC 4. T Bar 28 % daytime. 5. Labs .and reculture trach. 6. Cont Trach toilet and lavage. 7. Antibiotics per ID. 1 Darren Kiser MD Mar 10, 2016 12:59
--- NOTE | 2016-03-10 14:29 | HHI.PR ---
Subjective Remarks No change in clinical picture Laying in bed on T piece oxygen Objective Vitals Vital Signs Date Time Temp Pulse Resp B/P Pulse Ox O2 Delivery O2 Flow Rate FiO2 03/10/16 12:00 97.2 73 20 116/70 98 03/10/16 08:00 97.9 73 24 115/68 97 03/10/16 04:33 98.9 70 32 107/57 98 03/10/16 02:35 98 30 03/10/16 00:00 97.8 84 30 101/58 95 03/09/16 20:19 95 30 03/09/16 20:00 98.7 88 32 104/73 93 03/09/16 16:00 97.0 72 22 106/70 95 I/O 03/09/16 03/09/16 03/09/16 03/10/16 03/10/16 03/10/16 07:00 15:00 23:00 07:00 15:00 23:00 Intake Total 806 ml Output Total 1100 ml 1200 ml 1300 ml 200 ml Balance -1100 ml -394 ml -1300 ml -200 ml IV Total 806 ml Output Urine Total 1100 ml 1200 ml 1300 ml 200 ml # Bowel Movements 1 4 Result Diagram: 03/08/1671403/08/16716 Objective Remarks GENERAL: Cachectic, contracted patient, chronic ill-looking, in no apparent distress. CARDIOVASCULAR: Regular rate and rhythm without murmurs, gallops, or rubs. RESPIRATORY: fair air entry, few crackles bibasilar GASTROINTESTINAL: Abdomen soft, non-tender, nondistended. Normal active bowel sounds PEG tube in place MUSCULOSKELETAL: Lower extremity in crossover contraction , positive pedal pulses,. NEURO: doesn't follow commands, spontaneous movement of upper or lower extremity, doesn't answer question Procedures 07/26- PEG replacement 07/29- right pigtail catheter placement for new pneumothorax A/P Problem List: (1) Sepsis ICD Code: A41.9 Status: Acute (2) HCAP (healthcare-associated pneumonia) ICD Code: J18.9 Status: Acute (3) Fever ICD Code: R50.9 Status: Resolved (4) Sepsis due to urinary tract infection ICD Code: A41.9 Status: Resolved (5) Chronic respiratory failure ICD Code: J96.10 Status: Chronic (6) Parkinson disease ICD Code: G20 Status: Chronic (7) UTI (urinary tract infection) ICD Code: N39.0 Status: Resolved (8) Encephalopathy ICD Code: G93.40 Status: Resolved (9) Feeding tube obstruction ICD Code: T85.598A Status: Resolved (10) Conjunctivitis ICD Code: H10.9 Status: Resolved (11) Hypotension ICD Code: I95.9 Status: Resolved Assessment and Plan 03/10/16: Continue current care, Continue antibiotic per ID recommendation A/P: New Sepsis sources: Tracheobronchitis and ESBL Kleb pneumo UTI MDR PSAE tracheobronchitis. ESBL MDR Kleb pneumo Cath associated UTI. h/o Recurrent aspiration tube feed related in past. Heena Cath associated UTI -Continue Meropenem IV (ASP: ESBL Kleb pneumo UTI) -Continue Tobramycin nebs. -Start Diflucan stop date entered. -Follow cultures -Monitor progress Chronic respiratory failure Chronic tracheostomy. Tolerated T piece. S/P recurrent right pneumothorax status post pigtail catheter removal. Currently on 28% oxygen 01/21. - pulmonology consulted. continue bipap at night. - Suction secretions and Levsin as needed -on low dose prednisone 2.5 mg daily by pulmonology - Duo nebs 4 times a day and when necessary. S/p colistin nebs and Solumedrol. Metabolic Encephalopathy Parkinson's disease underlying. neuro consulted . CT head 06/18/15: - diffuse atrophy unchanged. No acute intracranial findings. - Continue cognitive efforts , sinemet , s/p zyprexa Malnutrition/protein calorie - moderate Status post PEG. Concern for hematemesis 12/05. GI evaluated pt. Gastroccult was negative and hemoglobin has been stable. Tolerating TFs 01/21. - 01/14. Switch to GJ tube due to aspiration. Consulting IR to evaluate GJ tube 01/19. - Current Colace/senna for bowel regimen. - continue PPI.- Prevacid. - 02/03: J tube replacement due to dysfunction Bilateral lower extremity Contractures Stage II DU. - Wound care team following. - Continue physical therapy. - turn q 2 hours s/p b/l conjunctivitis : s/p abx eye drop GI prophylaxis: PPI. Stool softener PRN constipation. DVT PPx: Lovenox Problem Qualifiers (1) Fever: Qualified Code: R50.9 - Fever, unspecified fever cause (2) Chronic respiratory failure: Qualified Code: J96.10 - Chronic respiratory failure, unspecified whether with hypoxia or hypercapnia (3) UTI (urinary tract infection): Qualified Code: N30.00 - Acute cystitis without hematuria (4) Conjunctivitis: Qualified Code: H10.9 - Conjunctivitis of left eye, unspecified conjunctivitis type Jb Ervin MD Mar 10, 2016 14:29
[2016-03-10] MEDS: ENOXAPARIN SODIUM 40 MG/0.4 ML SYRINGE SQ SCH (23:33)
[2016-03-10] MEDS: ACETAMINOPHEN/HYDROcodone 325 MG/5 MG TAB PO PRN (23:40)
[2016-03-11] VITALS (8 sets, daily range): BP systolic 101–142; BP diastolic 65–89; PULSE 65–87; RESP 22–28; TEMP 95.4–98.9; O2SAT 92–100
[2016-03-11] MEDS: MEROPENEM INJ 500 MG in SODIUM CHLORIDE 0.9% INJ 100 ML IV SCH ×3 (02:32→17:00)
[2016-03-11] MEDS: SODIUM CHLOR 0.9% 1000 ML INJ 1,000 ML IV SCH ×2 (04:30→22:08)
[2016-03-11] MEDS: FREE WATER G-TUBE SCH ×4 (06:00→18:00)
[2016-03-11] MEDS: BETHANECHOL CHL 10 MG TAB PO SCH ×3 (07:02→22:07)
[2016-03-11] MEDS: RESP: TOBRAMYCIN SULFATE 80 MG/2 ML NEB NEB SCH ×2 (07:27→20:24)
[2016-03-11] MEDS: CHLORHEXIDINE GLUCONATE 0.12% 30 ML CUP MT SCH ×2 (08:00→22:05)
[2016-03-11] MEDS: COLLAGENASE OINT 30 GM TUBE TOP SCH (09:00)
[2016-03-11] MEDS: ARTIFICIAL TEARS OPTH SOLN 15 ML BTL EACH EYE SCH ×3 (09:00→18:00)
[2016-03-11] MEDS: CARBIDOPA/LEVODOPA 25 MG/100 MG TAB GT SCH ×4 (09:00→22:06)
[2016-03-11] MEDS: SODIUM CHLORIDE 0.9% FLUSH 5 ML FLUSH IVF SCH ×2 (09:00→22:07)
[2016-03-11] MEDS: predniSONE 5 MG TAB PO SCH (09:00)
[2016-03-11] MEDS: POTASSIUM CL 40 MEQ/30 ML LIQ UDC GT SCH (09:40)
[2016-03-11] MEDS: FLUCONAZOLE 100 MG TAB PO SCH (09:42)
[2016-03-11] MEDS: PARoxetine HCL 20 MG TAB G-TUBE SCH (09:42)
[2016-03-11] MEDS: LACTOBACILLUS ACIDOPHILUS TAB PO SCH ×3 (09:42→18:00)
[2016-03-11] MEDS: GABAPENTIN 300 MG CAP G-TUBE SCH ×2 (09:43→22:05)
[2016-03-11] MEDS: LANSOPRAZOLE SOLUTAB 30 MG TAB NG SCH (09:43)
--- NOTE | 2016-03-11 15:37 | HHI.PR ---
Subjective Remarks Resting in bed with open eyes, the nurse is working on improving his O2 sat, generous secretions, discussed with the nurse, Dr. Car following Afebrile, Objective Vitals Vital Signs Date Time Temp Pulse Resp B/P Pulse Ox O2 Delivery O2 Flow Rate FiO2 03/11/16 12:00 95.6 74 22 117/72 99 03/11/16 08:00 98.9 84 26 142/89 96 03/11/16 07:30 T-Piece 7.00 28 03/11/16 07:27 100 T-piece 6.00 28 03/11/16 06:48 98.6 75 28 106/72 97 03/11/16 00:40 18 03/11/16 00:00 97.8 73 24 102/69 97 03/10/16 23:42 7 20 116/69 94 03/10/16 21:30 T-Piece 03/10/16 20:00 96.7 76 28 98/73 93 03/10/16 16:00 97.0 76 20 122/69 100 I/O 03/10/16 03/10/16 03/10/16 03/11/16 03/11/16 03/11/16 06:59 14:59 22:59 06:59 14:59 22:59 Intake Total 1385 ml Output Total 200 ml 1450 ml 850 ml 1500 ml Balance -200 ml -1450 ml -850 ml -1500 ml 1385 ml IV Total 1385 ml Output Urine Total 200 ml 1450 ml 850 ml 1500 ml # Bowel Movements 0 0 0 Result Diagram: 03/08/1671403/08/16716 Objective Remarks GENERAL: Cachectic, contracted patient, chronic ill-looking, in no apparent distress. CARDIOVASCULAR: Regular rate and rhythm without murmurs, gallops, or rubs. RESPIRATORY: fair air entry, few crackles bibasilar GASTROINTESTINAL: Abdomen soft, non-tender, nondistended. Normal active bowel sounds PEG tube in place MUSCULOSKELETAL: Lower extremity in crossover contraction , positive pedal pulses,. NEURO: doesn't follow commands, spontaneous movement of upper or lower extremity, doesn't answer question Procedures 07/26- PEG replacement 07/29- right pigtail catheter placement for new pneumothorax A/P Problem List: (1) Sepsis ICD Code: A41.9 Status: Acute (2) HCAP (healthcare-associated pneumonia) ICD Code: J18.9 Status: Acute (3) Fever ICD Code: R50.9 Status: Resolved (4) Sepsis due to urinary tract infection ICD Code: A41.9 Status: Resolved (5) Chronic respiratory failure ICD Code: J96.10 Status: Chronic (6) Parkinson disease ICD Code: G20 Status: Chronic (7) UTI (urinary tract infection) ICD Code: N39.0 Status: Resolved (8) Encephalopathy ICD Code: G93.40 Status: Resolved (9) Feeding tube obstruction ICD Code: T85.598A Status: Resolved (10) Conjunctivitis ICD Code: H10.9 Status: Resolved (11) Hypotension ICD Code: I95.9 Status: Resolved Assessment and Plan 03/11/16: Episode of desaturation, continued chest toileting, Continue current care, antibiotic per ID recommendation, follow pulmonary recommendation A/P: New Sepsis sources: Tracheobronchitis and ESBL Kleb pneumo UTI MDR PSAE tracheobronchitis. ESBL MDR Kleb pneumo Cath associated UTI. h/o Recurrent aspiration tube feed related in past. Heena Cath associated UTI -Continue Meropenem IV (ASP: ESBL Kleb pneumo UTI) -Continue Tobramycin nebs. -Start Diflucan stop date entered. -Follow cultures -Monitor progress Chronic respiratory failure Chronic tracheostomy. Tolerated T piece. S/P recurrent right pneumothorax status post pigtail catheter removal. Currently on 28% oxygen 01/21. - pulmonology consulted. continue bipap at night. - Suction secretions and Levsin as needed -on low dose prednisone 2.5 mg daily by pulmonology - Duo nebs 4 times a day and when necessary. S/p colistin nebs and Solumedrol. Metabolic Encephalopathy Parkinson's disease underlying. neuro consulted . CT head 06/18/15: - diffuse atrophy unchanged. No acute intracranial findings. - Continue cognitive efforts , sinemet , s/p zyprexa Malnutrition/protein calorie - moderate Status post PEG. Concern for hematemesis 12/05. GI evaluated pt. Gastroccult was negative and hemoglobin has been stable. Tolerating TFs 01/21. - 01/14. Switch to GJ tube due to aspiration. Consulting IR to evaluate GJ tube 01/19. - Current Colace/senna for bowel regimen. - continue PPI.- Prevacid. - 02/03: J tube replacement due to dysfunction Bilateral lower extremity Contractures Stage II DU. - Wound care team following. - Continue physical therapy. - turn q 2 hours s/p b/l conjunctivitis : s/p abx eye drop GI prophylaxis: PPI. Stool softener PRN constipation. DVT PPx: Lovenox Problem Qualifiers (1) Fever: Qualified Code: R50.9 - Fever, unspecified fever cause (2) Chronic respiratory failure: Qualified Code: J96.10 - Chronic respiratory failure, unspecified whether with hypoxia or hypercapnia (3) UTI (urinary tract infection): Qualified Code: N30.00 - Acute cystitis without hematuria (4) Conjunctivitis: Qualified Code: H10.9 - Conjunctivitis of left eye, unspecified conjunctivitis type Jb Ervin MD Mar 11, 2016 15:37
[2016-03-11] MEDS: ENOXAPARIN SODIUM 40 MG/0.4 ML SYRINGE SQ SCH (22:05)
[2016-03-11] MEDS: ACETAMINOPHEN/HYDROcodone 325 MG/5 MG TAB PO PRN (22:06)
[2016-03-12] VITALS (12 sets, daily range): BP systolic 91–113; BP diastolic 52–86; PULSE 61–91; RESP 20–26; TEMP 96.6–99; O2SAT 90–100
[2016-03-12] MEDS: RESP: ALBUTEROL 2.5 MG/3 ML NEB (PRN) NEB ×3 (00:54→21:17)
[2016-03-12] MEDS: MEROPENEM INJ 500 MG in SODIUM CHLORIDE 0.9% INJ 100 ML IV SCH ×3 (01:29→17:06)
[2016-03-12] MEDS: BETHANECHOL CHL 10 MG TAB PO SCH ×3 (05:45→22:27)
[2016-03-12] MEDS: FREE WATER G-TUBE SCH ×4 (05:45→17:06)
[2016-03-12] MEDS: ARTIFICIAL TEARS OPTH SOLN 15 ML BTL EACH EYE SCH ×3 (09:38→17:06)
[2016-03-12] MEDS: CHLORHEXIDINE GLUCONATE 0.12% 30 ML CUP MT SCH ×2 (09:40→22:27)
[2016-03-12] MEDS: POTASSIUM CL 40 MEQ/30 ML LIQ UDC GT SCH (09:41)
[2016-03-12] MEDS: FLUCONAZOLE 100 MG TAB PO SCH (09:43)
[2016-03-12] MEDS: LACTOBACILLUS ACIDOPHILUS TAB PO SCH ×3 (09:43→17:05)
[2016-03-12] MEDS: PARoxetine HCL 20 MG TAB G-TUBE SCH (09:43)
[2016-03-12] MEDS: predniSONE 5 MG TAB PO SCH (09:43)
[2016-03-12] MEDS: RESP: TOBRAMYCIN SULFATE 80 MG/2 ML NEB NEB SCH ×2 (09:43→21:17)
[2016-03-12] MEDS: LANSOPRAZOLE SOLUTAB 30 MG TAB NG SCH (09:43)
[2016-03-12] MEDS: GABAPENTIN 300 MG CAP G-TUBE SCH ×2 (09:43→22:27)
[2016-03-12] MEDS: COLLAGENASE OINT 30 GM TUBE TOP SCH (09:44)
[2016-03-12] MEDS: CARBIDOPA/LEVODOPA 25 MG/100 MG TAB GT SCH ×4 (09:44→22:27)
[2016-03-12] MEDS: SODIUM CHLORIDE 0.9% FLUSH 5 ML FLUSH IVF SCH ×2 (09:44→21:00)
[2016-03-12] MEDS: SODIUM CHLOR 0.9% 1000 ML INJ 1,000 ML IV SCH ×2 (09:44→22:29)
--- NOTE | 2016-03-12 11:53 | HHI.PR ---
Subjective Remarks Patient resting in bed open eyes Lymph contractions, still having secretions, no major changes in clinical picture No fever temperature 97.1 this morning, blood pressure on the lower side Objective Vitals Vital Signs Date Time Temp Pulse Resp B/P Pulse Ox O2 Delivery O2 Flow Rate FiO2 03/12/16 09:46 96 T-piece 28 03/12/16 09:06 97.1 66 20 91/56 100 03/12/16 05:15 94 50 03/12/16 04:00 99.0 91 22 92/64 94 03/12/16 00:59 93 BiPAP 40 03/12/16 00:41 90 30 03/12/16 00:00 98.0 61 20 113/86 97 03/11/16 23:12 19 03/11/16 20:32 97 T-piece 28 03/11/16 20:00 97.2 65 22 101/65 97 03/11/16 19:22 T-Piece 03/11/16 16:00 95.4 87 24 137/84 92 03/11/16 12:00 95.6 74 22 117/72 99 I/O 03/11/16 03/11/16 03/11/16 03/12/16 03/12/16 03/12/16 07:00 15:00 23:00 07:00 15:00 23:00 Intake Total 1385 ml 1772 ml Output Total 1500 ml 1000 ml 1100 ml Balance -1500 ml 385 ml 1772 ml -1100 ml IV Total 1385 ml 431 ml Tube Feeding 1341 ml Output Urine Total 1500 ml 1000 ml 1100 ml # Bowel Movements 0 1 2 Result Diagram: 03/08/1671403/08/16 07 Objective Remarks GENERAL: Cachectic, contracted patient, chronic ill-looking, in no apparent distress. CARDIOVASCULAR: Regular rate and rhythm without murmurs, gallops, or rubs. RESPIRATORY: fair air entry, few crackles bibasilar GASTROINTESTINAL: Abdomen soft, non-tender, nondistended. Normal active bowel sounds PEG tube in place MUSCULOSKELETAL: Lower extremity in crossover contraction , positive pedal pulses,. NEURO: doesn't follow commands, spontaneous movement of upper or lower extremity, doesn't answer question Procedures 07/26- PEG replacement 07/29- right pigtail catheter placement for new pneumothorax A/P Problem List: (1) Sepsis ICD Code: A41.9 Status: Acute (2) HCAP (healthcare-associated pneumonia) ICD Code: J18.9 Status: Acute (3) Fever ICD Code: R50.9 Status: Resolved (4) Sepsis due to urinary tract infection ICD Code: A41.9 Status: Resolved (5) Chronic respiratory failure ICD Code: J96.10 Status: Chronic (6) Parkinson disease ICD Code: G20 Status: Chronic (7) UTI (urinary tract infection) ICD Code: N39.0 Status: Resolved (8) Encephalopathy ICD Code: G93.40 Status: Resolved (9) Feeding tube obstruction ICD Code: T85.598A Status: Resolved (10) Conjunctivitis ICD Code: H10.9 Status: Resolved (11) Hypotension ICD Code: I95.9 Status: Resolved Assessment and Plan 03/11/16: Episode of desaturation, continued chest toileting, Continue current care, antibiotic per ID recommendation, follow pulmonary recommendation 03/12/16: No acute changes continue current management per machine icer and ID, A/P: New Sepsis sources: Tracheobronchitis and ESBL Kleb pneumo UTI MDR PSAE tracheobronchitis. ESBL MDR Kleb pneumo Cath associated UTI. h/o Recurrent aspiration tube feed related in past. Heena Cath associated UTI -Continue Meropenem IV (ASP: ESBL Kleb pneumo UTI) -Continue Tobramycin nebs. -Start Diflucan stop date entered. -Follow cultures -Monitor progress Chronic respiratory failure Chronic tracheostomy. Tolerated T piece. S/P recurrent right pneumothorax status post pigtail catheter removal. Currently on 28% oxygen 01/21. - pulmonology consulted. continue bipap at night. - Suction secretions and Levsin as needed -on low dose prednisone 2.5 mg daily by pulmonology - Duo nebs 4 times a day and when necessary. S/p colistin nebs and Solumedrol. Metabolic Encephalopathy Parkinson's disease underlying. neuro consulted . CT head 06/18/15: - diffuse atrophy unchanged. No acute intracranial findings. - Continue cognitive efforts , sinemet , s/p zyprexa Malnutrition/protein calorie - moderate Status post PEG. Concern for hematemesis 12/05. GI evaluated pt. Gastroccult was negative and hemoglobin has been stable. Tolerating TFs 01/21. - 01/14. Switch to GJ tube due to aspiration. Consulting IR to evaluate GJ tube 01/19. - Current Colace/senna for bowel regimen. - continue PPI.- Prevacid. - 02/03: J tube replacement due to dysfunction Bilateral lower extremity Contractures Stage II DU. - Wound care team following. - Continue physical therapy. - turn q 2 hours s/p b/l conjunctivitis : s/p abx eye drop GI prophylaxis: PPI. Stool softener PRN constipation. DVT PPx: Lovenox Problem Qualifiers (1) Fever: Qualified Code: R50.9 - Fever, unspecified fever cause (2) Chronic respiratory failure: Qualified Code: J96.10 - Chronic respiratory failure, unspecified whether with hypoxia or hypercapnia (3) UTI (urinary tract infection): Qualified Code: N30.00 - Acute cystitis without hematuria (4) Conjunctivitis: Qualified Code: H10.9 - Conjunctivitis of left eye, unspecified conjunctivitis type Jb Ervin MD Mar 12, 2016 11:53
[2016-03-12] MEDS: ENOXAPARIN SODIUM 40 MG/0.4 ML SYRINGE SQ SCH (22:29)
[2016-03-13] VITALS (10 sets, daily range): BP systolic 95–149; BP diastolic 56–94; PULSE 62–90; RESP 20–28; TEMP 95.8–98.9; O2SAT 92–100
[2016-03-13] MEDS: MEROPENEM INJ 500 MG in SODIUM CHLORIDE 0.9% INJ 100 ML IV SCH ×3 (02:06→17:26)
[2016-03-13] MEDS: FREE WATER G-TUBE SCH ×5 (06:00→22:03)
[2016-03-13] MEDS: BETHANECHOL CHL 10 MG TAB PO SCH ×3 (06:40→22:00)
[2016-03-13] MEDS: SODIUM CHLOR 0.9% 1000 ML INJ 1,000 ML IV SCH ×2 (06:40→17:26)
[2016-03-13] MEDS: RESP: TOBRAMYCIN SULFATE 80 MG/2 ML NEB NEB SCH ×2 (08:52→20:00)
[2016-03-13] MEDS: RESP: ALBUTEROL 2.5 MG/3 ML NEB (PRN) NEB (08:52)
[2016-03-13] MEDS: POTASSIUM CL 40 MEQ/30 ML LIQ UDC GT SCH (09:19)
[2016-03-13] MEDS: FLUCONAZOLE 100 MG TAB PO SCH (09:19)
[2016-03-13] MEDS: CHLORHEXIDINE GLUCONATE 0.12% 30 ML CUP MT SCH ×2 (09:20→21:50)
[2016-03-13] MEDS: SODIUM CHLORIDE 0.9% FLUSH 5 ML FLUSH IVF SCH ×2 (09:20→21:00)
[2016-03-13] MEDS: LACTOBACILLUS ACIDOPHILUS TAB PO SCH ×3 (09:20→17:26)
[2016-03-13] MEDS: GABAPENTIN 300 MG CAP G-TUBE SCH ×2 (09:20→21:50)
[2016-03-13] MEDS: PARoxetine HCL 20 MG TAB G-TUBE SCH (09:20)
[2016-03-13] MEDS: CARBIDOPA/LEVODOPA 25 MG/100 MG TAB GT SCH ×4 (09:20→21:50)
[2016-03-13] MEDS: LANSOPRAZOLE SOLUTAB 30 MG TAB NG SCH (09:20)
[2016-03-13] MEDS: predniSONE 5 MG TAB PO SCH (09:20)
[2016-03-13] MEDS: COLLAGENASE OINT 30 GM TUBE TOP SCH (09:21)
[2016-03-13] MEDS: ARTIFICIAL TEARS OPTH SOLN 15 ML BTL EACH EYE SCH ×3 (09:21→17:27)
--- NOTE | 2016-03-13 14:14 | HHI.PR ---
Subjective Remarks resting in bed , doesn't follow command , closed eyes on t piece Objective Vitals Vital Signs Date Time Temp Pulse Resp B/P Pulse Ox O2 Delivery O2 Flow Rate FiO2 03/13/16 12:05 98.0 90 20 111/67 96 03/13/16 08:54 94 T-piece 50 03/13/16 08:12 97.5 82 22 104/58 100 03/13/16 07:46 Bi-Pap 03/13/16 04:05 96.3 62 24 101/58 100 03/13/16 03:25 95 50 03/13/16 00:50 96 50 03/13/16 00:29 95.8 88 26 95/56 99 03/12/16 21:32 95 50 03/12/16 21:17 95 T-piece 28 03/12/16 20:14 96.6 80 26 113/71 92 03/12/16 17:22 97.5 79 20 100/52 I/O 03/12/16 03/12/16 03/12/16 03/13/16 03/13/16 03/13/16 07:00 15:00 23:00 07:00 15:00 23:00 Intake Total 641 ml 2204 ml Output Total 1100 ml 925 ml 1000 ml 625 ml Balance -1100 ml -284 ml 1204 ml -625 ml IV Total 1422 ml Tube Feeding 641 ml 342 ml Other 440 ml Output Urine Total 1100 ml 925 ml 1000 ml 625 ml # Bowel Movements 2 2 2 Objective Remarks GENERAL: Cachectic, contracted patient, chronic ill-looking, in no apparent distress. CARDIOVASCULAR: Regular rate and rhythm without murmurs, gallops, or rubs. RESPIRATORY: fair air entry, few crackles bibasilar GASTROINTESTINAL: Abdomen soft, non-tender, nondistended. Normal active bowel sounds PEG tube in place MUSCULOSKELETAL: Lower extremity in crossover contraction , positive pedal pulses,. NEURO: doesn't follow commands, spontaneous movement of upper or lower extremity, doesn't answer question Procedures 07/26- PEG replacement 07/29- right pigtail catheter placement for new pneumothorax A/P Problem List: (1) Sepsis ICD Code: A41.9 Status: Acute (2) HCAP (healthcare-associated pneumonia) ICD Code: J18.9 Status: Acute (3) Fever ICD Code: R50.9 Status: Resolved (4) Sepsis due to urinary tract infection ICD Code: A41.9 Status: Resolved (5) Chronic respiratory failure ICD Code: J96.10 Status: Chronic (6) Parkinson disease ICD Code: G20 Status: Chronic (7) UTI (urinary tract infection) ICD Code: N39.0 Status: Resolved (8) Encephalopathy ICD Code: G93.40 Status: Resolved (9) Feeding tube obstruction ICD Code: T85.598A Status: Resolved (10) Conjunctivitis ICD Code: H10.9 Status: Resolved (11) Hypotension ICD Code: I95.9 Status: Resolved Assessment and Plan 03/11/16: Episode of desaturation, continued chest toileting, Continue current care, antibiotic per ID recommendation, follow pulmonary recommendation 03/12/16: No acute changes continue current management per electric truck operator and ID, 03/13/16: continue current care , plan reviewed A/P: New Sepsis sources: Tracheobronchitis and ESBL Kleb pneumo UTI MDR PSAE tracheobronchitis. ESBL MDR Kleb pneumo Cath associated UTI. h/o Recurrent aspiration tube feed related in past. Heena Cath associated UTI -Continue Meropenem IV (ASP: ESBL Kleb pneumo UTI) -Continue Tobramycin nebs. -Start Diflucan stop date entered. -Follow cultures -Monitor progress Chronic respiratory failure Chronic tracheostomy. Tolerated T piece. S/P recurrent right pneumothorax status post pigtail catheter removal. Currently on 28% oxygen 01/21. - pulmonology consulted. continue bipap at night. - Suction secretions and Levsin as needed -on low dose prednisone 2.5 mg daily by pulmonology - Duo nebs 4 times a day and when necessary. S/p colistin nebs and Solumedrol. Metabolic Encephalopathy Parkinson's disease underlying. neuro consulted . CT head 06/18/15: - diffuse atrophy unchanged. No acute intracranial findings. - Continue cognitive efforts , sinemet , s/p zyprexa Malnutrition/protein calorie - moderate Status post PEG. Concern for hematemesis 12/05. GI evaluated pt. Gastroccult was negative and hemoglobin has been stable. Tolerating TFs 01/21. - 01/14. Switch to GJ tube due to aspiration. Consulting IR to evaluate GJ tube 01/19. - Current Colace/senna for bowel regimen. - continue PPI.- Prevacid. - 02/03: J tube replacement due to dysfunction Bilateral lower extremity Contractures Stage II DU. - Wound care team following. - Continue physical therapy. - turn q 2 hours s/p b/l conjunctivitis : s/p abx eye drop GI prophylaxis: PPI. Stool softener PRN constipation. DVT PPx: Lovenox Problem Qualifiers (1) Fever: Qualified Code: R50.9 - Fever, unspecified fever cause (2) Chronic respiratory failure: Qualified Code: J96.10 - Chronic respiratory failure, unspecified whether with hypoxia or hypercapnia (3) UTI (urinary tract infection): Qualified Code: N30.00 - Acute cystitis without hematuria (4) Conjunctivitis: Qualified Code: H10.9 - Conjunctivitis of left eye, unspecified conjunctivitis type Jb Ervin MD Mar 13, 2016 14:14
[2016-03-13] MEDS: ENOXAPARIN SODIUM 40 MG/0.4 ML SYRINGE SQ SCH (22:02)
[2016-03-14] VITALS (10 sets, daily range): BP systolic 101–145; BP diastolic 51–84; PULSE 72–93; RESP 21–28; TEMP 96.5–97.9; O2SAT 82–98
[2016-03-14] MEDS: MEROPENEM INJ 500 MG in SODIUM CHLORIDE 0.9% INJ 100 ML IV SCH ×3 (01:28→16:55)
[2016-03-14] MEDS: SODIUM CHLOR 0.9% 1000 ML INJ 1,000 ML IV SCH ×2 (01:30→12:47)
[2016-03-14] MEDS: FREE WATER G-TUBE SCH ×3 (06:00→16:56)
[2016-03-14] MEDS: BETHANECHOL CHL 10 MG TAB PO SCH ×3 (06:41→22:56)
[2016-03-14] MEDS: RESP: TOBRAMYCIN SULFATE 80 MG/2 ML NEB NEB SCH ×2 (08:53→21:00)
[2016-03-14] MEDS: POTASSIUM CL 40 MEQ/30 ML LIQ UDC GT SCH (09:35)
[2016-03-14] MEDS: FLUCONAZOLE 100 MG TAB PO SCH (09:35)
[2016-03-14] MEDS: LACTOBACILLUS ACIDOPHILUS TAB PO SCH ×3 (09:35→16:55)
[2016-03-14] MEDS: GABAPENTIN 300 MG CAP G-TUBE SCH ×2 (09:35→21:12)
[2016-03-14] MEDS: CHLORHEXIDINE GLUCONATE 0.12% 30 ML CUP MT SCH ×2 (09:35→21:12)
[2016-03-14] MEDS: predniSONE 5 MG TAB PO SCH (09:35)
[2016-03-14] MEDS: LANSOPRAZOLE SOLUTAB 30 MG TAB NG SCH (09:35)
[2016-03-14] MEDS: CARBIDOPA/LEVODOPA 25 MG/100 MG TAB GT SCH ×4 (09:35→21:12)
[2016-03-14] MEDS: PARoxetine HCL 20 MG TAB G-TUBE SCH (09:35)
[2016-03-14] MEDS: ACETAMINOPHEN/HYDROcodone 325 MG/5 MG TAB PO PRN (09:36)
[2016-03-14] MEDS: SODIUM CHLORIDE 0.9% FLUSH 5 ML FLUSH IVF SCH ×2 (09:37→21:00)
[2016-03-14] MEDS: COLLAGENASE OINT 30 GM TUBE TOP SCH (09:37)
[2016-03-14] MEDS: ARTIFICIAL TEARS OPTH SOLN 15 ML BTL EACH EYE SCH ×3 (09:37→16:56)
[2016-03-14] MEDS: LEVOFLOXACIN 500 MG TAB PO SCH (12:51)
--- NOTE | 2016-03-14 13:26 | HHI.IDPN ---
Subjective Subjective Remarks ID COVERAGE Overnight events reviewed with RN. Dyspneic was placed on CPAP by RT. Increased thick yellow secretions. WBC normal. BP intermittently low Cultures reviewed is 55 y/o CM with multiple medical problems.Chronic encephalopathy with underlying diagnosis of advanced dementia as well as advanced Parkinson's disease. Status post trach, Status post gastrostomy tube, sacral decubitus ulcer, h/o Recurrent aspiration tube feed related in past. Antibiotics Meropenem IV Tobra neb Lines Peripheral IV with no e/o infection Past Medical History reviewed Allergies: Coded Allergies: *MDRO Multi-Drug Resistant Organism (Verified Adverse Reaction, Unknown, ESBL, carbapenem resistant Pseudomonas, 01/13/16) ESBL E. coli (urine) - 02/19/2015; ESBL K. pneumoniae (sputum-06/18/15, 08/03/15, 09/20/15,10/12/15, 11/27/15, 12/26/15, 01/09/16), (urine-08/03/15 & 11/27/15), MRSA PCR POSITIVE - 03/20/2015 MDR-Pseudomonas (sputum)- 08/18/15, 09/20/15, 10/2015 (Carbapenem resistant) Objective . Vital Signs Date Time Temp Pulse Resp B/P Pulse Ox O2 Delivery O2 Flow Rate FiO2 03/14/16 12:00 97.6 75 22 130/84 95 03/14/16 08:00 96.7 88 21 131/77 95 03/14/16 04:00 96.5 72 22 121/82 93 03/14/16 03:06 98 40 03/14/16 00:00 97.3 93 28 145/70 92 03/13/16 22:00 94 T-Piece 50 Humidified 03/13/16 20:39 92 T-piece 6.00 50 03/13/16 20:00 97.0 80 28 149/94 92 03/13/16 18:20 98.9 88 20 99/74 95 03/13/16 03/13/16 03/14/16 15:00 23:00 07:00 Intake Total 736 ml 1877 ml Output Total 625 ml 675 ml 300 ml Balance 111 ml -675 ml 1577 ml IV Total 736 ml 1122 ml Tube Feeding 255 ml Other 500 ml Output Urine Total 625 ml 675 ml 300 ml # Bowel Movements 2 1 0 Imaging Chest X-Ray 03/04/16 0000 Signed Impressions: Service Date/Time: Friday, March 04, 2016 18:10 - CONCLUSION: No acute cardiopulmonary disease. Eugene Schmid MD Physical Exam GENERAL: No interaction, calm, looks comfortable SKIN: Cool and moist. No generalized rash. HEENT: [place] conjunctivae, no icterus, moist mucosa. NECK: Trach site looks ok. Supple RESPIRATORY: Coarse BS razia, with few rhonchi GASTROINTESTINAL: Abdomen soft, not distended. Bowel sounds normoactive. No guarding. PEG site looks okay. MUSCULOSKELETAL: No cyanosis No pedal edema. Contracted all 4 extremities. NEUROLOGICAL: Eyes open, Extremities contracted Peripheral IV line sites with no evidence of infection. ; Valdez in place, urine looks clear Assessment & Plan Remarks IMPRESSION New Sepsis sources: Tracheobronchitis and ESBL Kleb pneumo UTI MDR PSAE Pneumonia. ESBL MDR Kleb pneumo Cath associated UTI. Chronic respiratory failure on trach Chronic encephalopathy with underlying diagnosis of advanced dementia as well as advanced Parkinson's disease. Status post trach Status post gastrostomy tube with no evidence of infection. Stage II sacral decubitus ulcer present on admission. h/o Recurrent aspiration tube feed related in past. Heena Cath associated UTI Recommendations Continue Meropenem IV (ASP: ESBL Kleb pneumo UTI) Continue Tobramycin nebs. Due to change in resp status placed on Bipap, increased secretions will check sputum cultures again. check CBC with diff, CMP Stat CXR. Valdez with urine. Check CBC. Flush valdez and reassess if ongoing. Follow H/H Follow cultures Monitor progress d/w . Recommend once a month valdez change as for chronic patients. Trina Moss MD Mar 14, 2016 13:26
--- NOTE | 2016-03-14 14:12 | RADRPT ---
EXAM DATE/TIME: 03/14/2016 13:11 [facility] COMPARISON: CHEST SINGLE AP, March 10, 2016, 5:48. INDICATIONS : Evaluate for pneumonia. MEDICAL HISTORY : Hypertension. Diabetes mellitus type II. SURGICAL HISTORY : Trach. ENCOUNTER: Subsequent ACUITY: 2 weeks PAIN SCORE: Non-responsive. LOCATION: Bilateral chest FINDINGS: Trach tube is in good position. Parenchymal changes are noted with minimal parenchymal changes in th e lung bases all stable in the interval. Heart is minimally enlarged. Pulmonary vascularity is normal. CONCLUSION: Stable chest. Milo Jackson MD FACR on March 14, 2016 at 13:59 Board Certified Radiologist. This report was verified electronically.
--- NOTE | 2016-03-14 15:58 | HHI.PR ---
Subjective Remarks Resting in bed with open eyes Afebrile, I discussed with ID specialist, she ordered chest x-ray and start him on Levaquin Objective Vitals Vital Signs Date Time Temp Pulse Resp B/P Pulse Ox O2 Delivery O2 Flow Rate FiO2 03/14/16 12:46 98 T-piece 60 03/14/16 12:00 97.6 75 22 130/84 95 03/14/16 08:53 82 40 03/14/16 08:00 96.7 88 21 131/77 95 03/14/16 04:00 96.5 72 22 121/82 93 03/14/16 03:06 98 40 03/14/16 00:00 97.3 93 28 145/70 92 03/13/16 22:00 94 T-Piece 50 Humidified 03/13/16 20:39 92 T-piece 6.00 50 03/13/16 20:00 97.0 80 28 149/94 92 03/13/16 18:20 98.9 88 20 99/74 95 I/O 03/13/16 03/13/16 03/13/16 03/14/16 03/14/16 03/14/16 07:00 15:00 23:00 07:00 15:00 23:00 Intake Total 2204 ml 736 ml 1877 ml Output Total 1000 ml 625 ml 675 ml 300 ml Balance 1204 ml 111 ml -675 ml 1577 ml IV Total 1422 ml 736 ml 1122 ml Tube Feeding 342 ml 255 ml Other 440 ml 500 ml Output Urine Total 1000 ml 625 ml 675 ml 300 ml # Bowel Movements 2 1 0 Objective Remarks GENERAL: Cachectic, contracted patient, chronic ill-looking, in no apparent distress. CARDIOVASCULAR: Regular rate and rhythm without murmurs, gallops, or rubs. RESPIRATORY: fair air entry, few crackles bibasilar GASTROINTESTINAL: Abdomen soft, non-tender, nondistended. Normal active bowel sounds PEG tube in place MUSCULOSKELETAL: Lower extremity in crossover contraction , positive pedal pulses,. NEURO: doesn't follow commands, spontaneous movement of upper or lower extremity, doesn't answer question Procedures 07/26- PEG replacement 07/29- right pigtail catheter placement for new pneumothorax A/P Problem List: (1) Sepsis ICD Code: A41.9 Status: Acute (2) HCAP (healthcare-associated pneumonia) ICD Code: J18.9 Status: Acute (3) Fever ICD Code: R50.9 Status: Resolved (4) Sepsis due to urinary tract infection ICD Code: A41.9 Status: Resolved (5) Chronic respiratory failure ICD Code: J96.10 Status: Chronic (6) Parkinson disease ICD Code: G20 Status: Chronic (7) UTI (urinary tract infection) ICD Code: N39.0 Status: Resolved (8) Encephalopathy ICD Code: G93.40 Status: Resolved (9) Feeding tube obstruction ICD Code: T85.598A Status: Resolved (10) Conjunctivitis ICD Code: H10.9 Status: Resolved (11) Hypotension ICD Code: I95.9 Status: Resolved Assessment and Plan 03/11/16: Episode of desaturation, continued chest toileting, Continue current care, antibiotic per ID recommendation, follow pulmonary recommendation 03/12/16: No acute changes continue current management per coper hand and ID, 03/13/16: continue current care , plan reviewed 03/14/16: Discussed with ID, she ordered chest x-ray which came back stable, started patient on Levaquin Hyperkalemia potassium at 5, repeat in a.m. A/P: New Sepsis sources: Tracheobronchitis and ESBL Kleb pneumo UTI MDR PSAE tracheobronchitis. ESBL MDR Kleb pneumo Cath associated UTI. h/o Recurrent aspiration tube feed related in past. Heena Cath associated UTI -Continue Meropenem IV (ASP: ESBL Kleb pneumo UTI) -Continue Tobramycin nebs. -Start Diflucan stop date entered. -Follow cultures -Monitor progress Chronic respiratory failure Chronic tracheostomy. Tolerated T piece. S/P recurrent right pneumothorax status post pigtail catheter removal. Currently on 28% oxygen 01/21. - pulmonology consulted. continue bipap at night. - Suction secretions and Levsin as needed -on low dose prednisone 2.5 mg daily by pulmonology - Duo nebs 4 times a day and when necessary. S/p colistin nebs and Solumedrol. Metabolic Encephalopathy Parkinson's disease underlying. neuro consulted . CT head 06/18/15: - diffuse atrophy unchanged. No acute intracranial findings. - Continue cognitive efforts , sinemet , s/p zyprexa Malnutrition/protein calorie - moderate Status post PEG. Concern for hematemesis 12/05. GI evaluated pt. Gastroccult was negative and hemoglobin has been stable. Tolerating TFs 01/21. - 01/14. Switch to GJ tube due to aspiration. Consulting IR to evaluate GJ tube 01/19. - Current Colace/senna for bowel regimen. - continue PPI.- Prevacid. - 02/03: J tube replacement due to dysfunction Bilateral lower extremity Contractures Stage II DU. - Wound care team following. - Continue physical therapy. - turn q 2 hours s/p b/l conjunctivitis : s/p abx eye drop GI prophylaxis: PPI. Stool softener PRN constipation. DVT PPx: Lovenox Problem Qualifiers (1) Fever: Qualified Code: R50.9 - Fever, unspecified fever cause (2) Chronic respiratory failure: Qualified Code: J96.10 - Chronic respiratory failure, unspecified whether with hypoxia or hypercapnia (3) UTI (urinary tract infection): Qualified Code: N30.00 - Acute cystitis without hematuria (4) Conjunctivitis: Qualified Code: H10.9 - Conjunctivitis of left eye, unspecified conjunctivitis type Jb Ervin MD Mar 14, 2016 15:58
[2016-03-14 16:18] LABS: AUTOMATED NEUTROPHIL # 6.7 TH/MM3 (1.8-7.7); BASOPHIL # 0.1 TH/MM3 (0-0.2); BASOPHIL % 0.8 % (0.0-2.0); EOSINOPHIL # 0.1 TH/MM3 (0-0.4); EOSINOPHIL % 0.8 % (0.0-4.0); HEMATOCRIT 33.1 % (39.0-51.0); HEMO FLAGS DIFF FINAL; LYMPH % 16.7 % (9.0-44.0); LYMPHOCYTE # 1.4 TH/MM3 (1.0-4.8); MEAN CELL VOLUME 86.1 FL (80.0-100.0); MEAN CORPUSCULAR HEMOGLOBIN 26.9 PG (27.0-34.0); MEAN CORPUSCULAR HGB CONC 31.2 % (32.0-36.0); MONO % 4.4 % (0.0-8.0); NEUT % 77.3 % (16.0-70.0); PLATELET COUNT 284 TH/MM3 (150-450); RED BLOOD COUNT 3.84 MIL/MM3 (4.50-5.90); RED CELL DISTRIBUTION WIDTH 15.3 % (11.6-17.2); WHITE BLOOD COUNT 8.7 TH/MM3 (4.0-11.0)
[2016-03-14 16:32] LABS: ALT (GPT) 11 U/L (12-78); ANION GAP 11 MEQ/L (5-15); AST (GOT) 48 U/L (15-37); BICARBONATE 27.3 MEQ/L (21.0-32.0); BLOOD UREA NITROGEN 17 MG/DL (7-18); CHLORIDE 103 MEQ/L (98-107); GLOMERULAR FILTRATION RATE 178 ML/MIN (>89); POTASSIUM 5.2 MEQ/L (3.5-5.1); SODIUM (NA) 141 MEQ/L (136-145)
[2016-03-14 16:34] LABS: ALKALINE PHOSPHATASE 78 U/L (45-117); TOTAL BILIRUBIN ADULT 0.4 MG/DL (0.2-1.0)
[2016-03-14] MEDS: DEXT 5%-NACL 0.45% 1000 ML INJ 1,000 ML IV SCH (18:43)
[2016-03-14 20:32] LABS: EOSINOPHILS 1 % (0-4); NEUTROPHIL # MANUAL DIFF 4.1 TH/MM3 (1.8-7.7); POLYS (SEG NEUTROPHILS) 47 % (16-70); WBC DIFF SAMPLE 100
[2016-03-14 20:33] LABS: PLATELET ESTIMATE SMEAR NORMAL (NORMAL); PLATELET MORPHOLOGY NORMAL (NORMAL); SCAN/DIFF FINAL DIFF MANUAL
[2016-03-14] MEDS: ENOXAPARIN SODIUM 40 MG/0.4 ML SYRINGE SQ SCH (22:56)
[2016-03-15] VITALS (10 sets, daily range): BP systolic 98–120; BP diastolic 50–85; PULSE 70–110; RESP 21–24; TEMP 96–97.9; O2SAT 93–100
[2016-03-15] MEDS: MEROPENEM INJ 500 MG in SODIUM CHLORIDE 0.9% INJ 100 ML IV SCH ×3 (01:32→17:00)
[2016-03-15] MEDS: ACETAMINOPHEN/HYDROcodone 325 MG/5 MG TAB PO PRN ×3 (01:33→23:19)
[2016-03-15] MEDS: FREE WATER G-TUBE SCH ×5 (05:38→23:19)
[2016-03-15] MEDS: BETHANECHOL CHL 10 MG TAB PO SCH ×3 (05:38→23:19)
[2016-03-15] MEDS: DEXT 5%-NACL 0.45% 1000 ML INJ 1,000 ML IV SCH (05:49)
[2016-03-15] MEDS: CHLORHEXIDINE GLUCONATE 0.12% 30 ML CUP MT SCH ×2 (08:00→20:00)
[2016-03-15] MEDS: RESP: TOBRAMYCIN SULFATE 80 MG/2 ML NEB NEB SCH ×2 (08:28→21:40)
[2016-03-15] MEDS: COLLAGENASE OINT 30 GM TUBE TOP SCH (09:00)
[2016-03-15] MEDS: ARTIFICIAL TEARS OPTH SOLN 15 ML BTL EACH EYE SCH ×3 (09:00→18:00)
[2016-03-15] MEDS: LEVOFLOXACIN 500 MG TAB PO SCH (10:20)
[2016-03-15] MEDS: CARBIDOPA/LEVODOPA 25 MG/100 MG TAB GT SCH ×4 (10:21→23:18)
[2016-03-15] MEDS: GABAPENTIN 300 MG CAP G-TUBE SCH ×2 (10:21→23:18)
[2016-03-15] MEDS: LACTOBACILLUS ACIDOPHILUS TAB PO SCH ×3 (10:21→18:00)
[2016-03-15] MEDS: PARoxetine HCL 20 MG TAB G-TUBE SCH (10:21)
[2016-03-15] MEDS: LANSOPRAZOLE SOLUTAB 30 MG TAB NG SCH (10:21)
[2016-03-15] MEDS: predniSONE 5 MG TAB PO SCH (10:21)
[2016-03-15] MEDS: SODIUM CHLORIDE 0.9% FLUSH 5 ML FLUSH IVF SCH ×2 (10:22→21:00)
--- NOTE | 2016-03-15 16:36 | HHI.PR ---
Subjective Remarks Rest in bed no acute issue, afebrile Objective Vitals Vital Signs Date Time Temp Pulse Resp B/P Pulse Ox O2 Delivery O2 Flow Rate FiO2 03/15/16 14:00 96.0 70 21 105/85 93 03/15/16 12:20 97.0 85 24 100/50 93 03/15/16 08:20 93 BiPAP 60 03/15/16 08:00 96.0 78 23 107/68 100 03/15/16 05:32 97.2 80 24 98/55 99 03/15/16 04:01 95 60 03/15/16 00:54 97.4 84 24 118/64 100 03/15/16 00:34 97 60 03/14/16 21:00 T-Piece 6.00 60 Humidified 03/14/16 21:00 96 60 03/14/16 20:28 97.9 83 22 101/51 93 I/O 03/14/16 03/14/16 03/14/16 03/15/16 03/15/16 03/15/16 07:00 15:00 23:00 07:00 15:00 23:00 Intake Total 1877 ml 1112 ml 200 ml 1180 ml Output Total 300 ml 600 ml 800 ml 950 ml Balance 1577 ml 1112 ml -400 ml 380 ml -950 ml IV Total 1122 ml 652 ml 780 ml Tube Feeding 255 ml Tube Irrigant 60 ml Other 500 ml 400 ml 200 ml 400 ml Output Urine Total 300 ml 600 ml 800 ml 950 ml # Bowel Movements 0 1 1 0 Result Diagram: 03/14/16 1555 03/15/16 0617 Objective Remarks GENERAL: Cachectic, contracted patient, chronic ill-looking, in no apparent distress. CARDIOVASCULAR: Regular rate and rhythm without murmurs, gallops, or rubs. RESPIRATORY: fair air entry, few crackles bibasilar GASTROINTESTINAL: Abdomen soft, non-tender, nondistended. Normal active bowel sounds PEG tube in place MUSCULOSKELETAL: Lower extremity in crossover contraction , positive pedal pulses,. NEURO: doesn't follow commands, spontaneous movement of upper or lower extremity, doesn't answer question Procedures 07/26- PEG replacement 07/29- right pigtail catheter placement for new pneumothorax A/P Problem List: (1) Sepsis ICD Code: A41.9 Status: Acute (2) HCAP (healthcare-associated pneumonia) ICD Code: J18.9 Status: Acute (3) Fever ICD Code: R50.9 Status: Resolved (4) Sepsis due to urinary tract infection ICD Code: A41.9 Status: Resolved (5) Chronic respiratory failure ICD Code: J96.10 Status: Chronic (6) Parkinson disease ICD Code: G20 Status: Chronic (7) UTI (urinary tract infection) ICD Code: N39.0 Status: Resolved (8) Encephalopathy ICD Code: G93.40 Status: Resolved (9) Feeding tube obstruction ICD Code: T85.598A Status: Resolved (10) Conjunctivitis ICD Code: H10.9 Status: Resolved (11) Hypotension ICD Code: I95.9 Status: Resolved Assessment and Plan 03/11/16: Episode of desaturation, continued chest toileting, Continue current care, antibiotic per ID recommendation, follow pulmonary recommendation 03/12/16: No acute changes continue current management per correctional security officer and ID, 03/13/16: continue current care , plan reviewed 03/14/16: Discussed with ID, she ordered chest x-ray which came back stable, started patient on Levaquin Hyperkalemia potassium at 5, repeat in a.m. 03/15/16: Potassium normalized at 4. continue current care A/P: New Sepsis sources: Tracheobronchitis and ESBL Kleb pneumo UTI MDR PSAE tracheobronchitis. ESBL MDR Kleb pneumo Cath associated UTI. h/o Recurrent aspiration tube feed related in past. Heena Cath associated UTI -Continue Meropenem IV (ASP: ESBL Kleb pneumo UTI) -Continue Tobramycin nebs. -Start Diflucan stop date entered. -Follow cultures -Monitor progress Chronic respiratory failure Chronic tracheostomy. Tolerated T piece. S/P recurrent right pneumothorax status post pigtail catheter removal. Currently on 28% oxygen 01/21. - pulmonology consulted. continue bipap at night. - Suction secretions and Levsin as needed -on low dose prednisone 2.5 mg daily by pulmonology - Duo nebs 4 times a day and when necessary. S/p colistin nebs and Solumedrol. Metabolic Encephalopathy Parkinson's disease underlying. neuro consulted . CT head 06/18/15: - diffuse atrophy unchanged. No acute intracranial findings. - Continue cognitive efforts , sinemet , s/p zyprexa Malnutrition/protein calorie - moderate Status post PEG. Concern for hematemesis 12/05. GI evaluated pt. Gastroccult was negative and hemoglobin has been stable. Tolerating TFs 01/21. - 01/14. Switch to GJ tube due to aspiration. Consulting IR to evaluate GJ tube 01/19. - Current Colace/senna for bowel regimen. - continue PPI.- Prevacid. - 02/03: J tube replacement due to dysfunction Bilateral lower extremity Contractures Stage II DU. - Wound care team following. - Continue physical therapy. - turn q 2 hours s/p b/l conjunctivitis : s/p abx eye drop GI prophylaxis: PPI. Stool softener PRN constipation. DVT PPx: Lovenox Problem Qualifiers (1) Fever: Qualified Code: R50.9 - Fever, unspecified fever cause (2) Chronic respiratory failure: Qualified Code: J96.10 - Chronic respiratory failure, unspecified whether with hypoxia or hypercapnia (3) UTI (urinary tract infection): Qualified Code: N30.00 - Acute cystitis without hematuria (4) Conjunctivitis: Qualified Code: H10.9 - Conjunctivitis of left eye, unspecified conjunctivitis type Jb Ervin MD Mar 15, 2016 16:36
[2016-03-15] MEDS: ENOXAPARIN SODIUM 40 MG/0.4 ML SYRINGE SQ SCH (23:18)
[2016-03-16] VITALS (9 sets, daily range): BP systolic 93–115; BP diastolic 52–73; PULSE 68–82; RESP 19–21; TEMP 95.8–98.1; O2SAT 95–99
[2016-03-16] MEDS: MEROPENEM INJ 500 MG in SODIUM CHLORIDE 0.9% INJ 100 ML IV SCH ×3 (01:00→17:17)
[2016-03-16] MEDS: FREE WATER G-TUBE SCH ×3 (06:00→15:52)
[2016-03-16] MEDS: ACETAMINOPHEN/HYDROcodone 325 MG/5 MG TAB PO PRN (06:00)
[2016-03-16] MEDS: DEXT 5%-NACL 0.45% 1000 ML INJ 1,000 ML IV SCH ×2 (06:00→17:12)
[2016-03-16] MEDS: BETHANECHOL CHL 10 MG TAB PO SCH ×3 (06:00→22:00)
[2016-03-16] MEDS: CARBIDOPA/LEVODOPA 25 MG/100 MG TAB GT SCH ×5 (08:59→21:00)
[2016-03-16] MEDS: predniSONE 5 MG TAB PO SCH ×2 (08:59→09:00)
[2016-03-16] MEDS: LANSOPRAZOLE SOLUTAB 30 MG TAB NG SCH (09:00)
[2016-03-16] MEDS: GABAPENTIN 300 MG CAP G-TUBE SCH ×2 (09:00→21:00)
[2016-03-16] MEDS: LACTOBACILLUS ACIDOPHILUS TAB PO SCH ×3 (09:00→15:52)
[2016-03-16] MEDS: PARoxetine HCL 20 MG TAB G-TUBE SCH (09:00)
[2016-03-16] MEDS: SODIUM CHLORIDE 0.9% FLUSH 5 ML FLUSH IVF SCH ×2 (09:00→21:00)
[2016-03-16] MEDS: LEVOFLOXACIN 500 MG TAB PO SCH (09:00)
[2016-03-16] MEDS: CHLORHEXIDINE GLUCONATE 0.12% 30 ML CUP MT SCH ×2 (09:07→23:00)
[2016-03-16] MEDS: ARTIFICIAL TEARS OPTH SOLN 15 ML BTL EACH EYE SCH ×3 (09:08→17:20)
[2016-03-16] MEDS: COLLAGENASE OINT 30 GM TUBE TOP SCH (09:08)
[2016-03-16] MEDS: RESP: TOBRAMYCIN SULFATE 80 MG/2 ML NEB NEB SCH ×2 (09:57→20:00)
--- NOTE | 2016-03-16 14:41 | HHI.PR ---
Subjective Remarks Plan for J NG tube repair by IR today I discussed with the nurse it been trying everything for the last few days but it's still clogged up Objective Vitals Vital Signs Date Time Temp Pulse Resp B/P Pulse Ox O2 Delivery O2 Flow Rate FiO2 03/16/16 11:55 96.2 80 21 94/65 97 03/16/16 09:58 95 BiPAP 60 03/16/16 09:58 95 60 03/16/16 09:05 T-Piece 6.00 30 Humidified 03/16/16 07:50 95.8 68 21 93/52 97 03/16/16 06:15 96 30 03/16/16 06:00 97.5 69 20 105/59 98 03/16/16 02:30 99 60 03/16/16 00:30 98.1 82 19 115/68 98 03/15/16 21:50 93 60 03/15/16 21:50 93 BiPAP 60 03/15/16 21:00 97.9 110 23 120/66 94 I/O 03/15/16 03/15/16 03/15/16 03/16/16 03/16/16 03/16/16 07:00 15:00 23:00 07:00 15:00 23:00 Intake Total 1180 ml 0 ml 0 ml Output Total 800 ml 1250 ml 100 ml Balance 380 ml -1250 ml -100 ml Intake Oral 0 ml 0 ml IV Total 780 ml Other 400 ml Output Urine Total 800 ml 1250 ml 100 ml # Bowel Movements 1 0 2 Result Diagram: 03/14/16 1555 03/15/16 0617 Objective Remarks GENERAL: Cachectic, contracted patient, chronic ill-looking, in no apparent distress. CARDIOVASCULAR: Regular rate and rhythm without murmurs, gallops, or rubs. RESPIRATORY: fair air entry, few crackles bibasilar GASTROINTESTINAL: Abdomen soft, non-tender, nondistended. Normal active bowel sounds PEG tube in place MUSCULOSKELETAL: Lower extremity in crossover contraction , positive pedal pulses,. NEURO: doesn't follow commands, spontaneous movement of upper or lower extremity, doesn't answer question Procedures 07/26- PEG replacement 07/29- right pigtail catheter placement for new pneumothorax A/P Problem List: (1) Sepsis ICD Code: A41.9 Status: Acute (2) HCAP (healthcare-associated pneumonia) ICD Code: J18.9 Status: Acute (3) Fever ICD Code: R50.9 Status: Resolved (4) Sepsis due to urinary tract infection ICD Code: A41.9 Status: Resolved (5) Chronic respiratory failure ICD Code: J96.10 Status: Chronic (6) Parkinson disease ICD Code: G20 Status: Chronic (7) UTI (urinary tract infection) ICD Code: N39.0 Status: Resolved (8) Encephalopathy ICD Code: G93.40 Status: Resolved (9) Feeding tube obstruction ICD Code: T85.598A Status: Resolved (10) Conjunctivitis ICD Code: H10.9 Status: Resolved (11) Hypotension ICD Code: I95.9 Status: Resolved Assessment and Plan A/P: New Sepsis sources: Tracheobronchitis and ESBL Kleb pneumo UTI MDR PSAE tracheobronchitis. ESBL MDR Kleb pneumo Cath associated UTI. h/o Recurrent aspiration tube feed related in past. Heena Cath associated UTI -Continue Meropenem IV (ASP: ESBL Kleb pneumo UTI) -Continue Tobramycin nebs. -Start Diflucan stop date entered. -Follow cultures -Monitor progress Chronic respiratory failure Chronic tracheostomy. Tolerated T piece. S/P recurrent right pneumothorax status post pigtail catheter removal. Currently on 28% oxygen 01/21. - pulmonology consulted. continue bipap at night. - Suction secretions and Levsin as needed -on low dose prednisone 2.5 mg daily by pulmonology - Duo nebs 4 times a day and when necessary. S/p colistin nebs and Solumedrol. Metabolic Encephalopathy Parkinson's disease underlying. neuro consulted . CT head 06/18/15: - diffuse atrophy unchanged. No acute intracranial findings. - Continue cognitive efforts , sinemet , s/p zyprexa Malnutrition/protein calorie - moderate Status post PEG. Concern for hematemesis 12/05. GI evaluated pt. Gastroccult was negative and hemoglobin has been stable. Tolerating TFs 01/21. - 01/14. Switch to GJ tube due to aspiration. Consulting IR to evaluate GJ tube 01/19. - Current Colace/senna for bowel regimen. - continue PPI.- Prevacid. - 02/03: J tube replacement due to dysfunction -IR to evaluate J NG tube on 03/16/16 Bilateral lower extremity Contractures Stage II DU. - Wound care team following. - Continue physical therapy. - turn q 2 hours s/p b/l conjunctivitis : s/p abx eye drop GI prophylaxis: PPI. Stool softener PRN constipation. DVT PPx: Lovenox Problem Qualifiers (1) Fever: Qualified Code: R50.9 - Fever, unspecified fever cause (2) Chronic respiratory failure: Qualified Code: J96.10 - Chronic respiratory failure, unspecified whether with hypoxia or hypercapnia (3) UTI (urinary tract infection): Qualified Code: N30.00 - Acute cystitis without hematuria (4) Conjunctivitis: Qualified Code: H10.9 - Conjunctivitis of left eye, unspecified conjunctivitis type Jb Ervin MD Mar 16, 2016 14:41
[2016-03-16] MEDS: RESP: ALBUTEROL 2.5 MG/3 ML NEB (PRN) NEB (14:51)
[2016-03-17] VITALS (10 sets, daily range): BP systolic 94–115; BP diastolic 57–76; PULSE 77–92; RESP 18–22; TEMP 96.2–97.4; O2SAT 94–100
[2016-03-17] MEDS: ENOXAPARIN SODIUM 40 MG/0.4 ML SYRINGE SQ SCH ×2 (00:47→23:20)
[2016-03-17] MEDS: MEROPENEM INJ 500 MG in SODIUM CHLORIDE 0.9% INJ 100 ML IV SCH ×3 (00:48→17:41)
[2016-03-17] MEDS: DEXT 5%-NACL 0.45% 1000 ML INJ 1,000 ML IV SCH (00:49)
[2016-03-17] MEDS: FREE WATER G-TUBE SCH ×5 (06:00→23:22)
[2016-03-17] MEDS: BETHANECHOL CHL 10 MG TAB PO SCH ×3 (06:00→23:21)
[2016-03-17] MEDS: ARTIFICIAL TEARS OPTH SOLN 15 ML BTL EACH EYE SCH ×3 (08:04→17:41)
[2016-03-17] MEDS: SODIUM CHLORIDE 0.9% FLUSH 5 ML FLUSH IVF SCH ×2 (08:05→21:00)
[2016-03-17] MEDS: CHLORHEXIDINE GLUCONATE 0.12% 30 ML CUP MT SCH ×2 (08:05→23:24)
[2016-03-17] MEDS: PARoxetine HCL 20 MG TAB G-TUBE SCH (08:07)
[2016-03-17] MEDS: GABAPENTIN 300 MG CAP G-TUBE SCH ×2 (08:07→23:20)
[2016-03-17] MEDS: CARBIDOPA/LEVODOPA 25 MG/100 MG TAB GT SCH ×4 (08:09→23:21)
[2016-03-17] MEDS: LANSOPRAZOLE SOLUTAB 30 MG TAB NG SCH (08:09)
[2016-03-17] MEDS: LEVOFLOXACIN 500 MG TAB PO SCH (09:00)
[2016-03-17] MEDS: RESP: TOBRAMYCIN SULFATE 80 MG/2 ML NEB NEB SCH ×2 (09:00→21:37)
[2016-03-17] MEDS: LACTOBACILLUS ACIDOPHILUS TAB PO SCH ×3 (09:00→17:42)
[2016-03-17] MEDS: predniSONE 5 MG TAB PO SCH (09:00)
--- NOTE | 2016-03-17 09:54 | HHI.PR ---
Subjective Remarks Follow-up Chronic encephalopathy with underlying diagnosis of advanced dementia as well as advanced Parkinson's disease.h/o Recurrent aspiration tube feed related in past. Now with Sepsis due to Tracheobronchitis and ESBL Kleb pneumo UTI 03/17/16-patient seen and examined, currently afebrile. Per nurse report patient's much more alert. Plan for replacement of GJ tube today by interventional radiology Objective Vitals Vital Signs Date Time Temp Pulse Resp B/P Pulse Ox O2 Delivery O2 Flow Rate FiO2 03/17/16 09:00 96 T-piece 6.00 70 03/17/16 08:32 96.2 86 20 106/68 100 03/17/16 08:17 T-Piece 6.00 60 Humidified 03/17/16 04:54 94 60 03/17/16 04:00 97.3 82 22 115/76 97 03/17/16 00:26 94 60 03/17/16 00:00 97.3 77 20 102/70 96 03/16/16 23:00 T-Piece 6.00 30 03/16/16 20:00 97.8 79 20 106/73 99 03/16/16 18:06 99 T-piece 6.00 60 03/16/16 11:55 96.2 80 21 94/65 97 03/16/16 09:58 95 BiPAP 60 03/16/16 09:58 95 60 I/O 03/16/16 03/16/16 03/16/16 03/17/16 03/17/16 03/17/16 07:00 15:00 23:00 07:00 15:00 23:00 Intake Total 0 ml 650 ml Output Total 100 ml 500 ml 800 ml 500 ml Balance -100 ml -500 ml -150 ml -500 ml Intake Oral 0 ml IV Total 650 ml Output Urine Total 100 ml 500 ml 800 ml 500 ml # Bowel Movements 2 0 Result Diagram: 03/14/16 1555 03/15/16 0617 Imaging Last Impressions Chest X-Ray 03/14/16 0000 Signed Impressions: Service Date/Time: Monday, March 14, 2016 13:11 - CONCLUSION: Stable chest. Milo Jackson MD FACR Tube Change 02/26/16 0000 Signed Impressions: Service Date/Time: Friday, February 26, 2016 18:49 - CONCLUSION: Uncomplicated gastrojejunostomy tube exchange as above. Scott Goode MD Tube Check 02/12/16 0000 Signed Impressions: Service Date/Time: Friday, February 12, 2016 16:08 - CONCLUSION: Uncomplicated tube injection as above. Blaine Jackson MD Gastrostomy Tube Change 01/15/16 0000 Signed Impressions: Service Date/Time: Friday, January 15, 2016 12:28 - CONCLUSION: Successful GJ tube exchange as above. Scott Goode MD Abdomen X-Ray 01/12/16 1628 Signed Impressions: Service Date/Time: Tuesday, January 12, 2016 17:35 - CONCLUSION: No evidence of obstruction or free air. Reyes Jewell MD Abdomen Ultrasound 12/06/15 0000 Signed Impressions: Service Date/Time: Sunday, December 06, 2015 17:42 - CONCLUSION: 1. The gallbladder is unremarkable with no evidence of cholelithiasis. 2. Simple cyst in the left kidney. 3. Mild pyelocaliectasis in the right kidney. Salazar Thurman MD Upper Extremity Ultrasound 10/13/15 0000 Signed Impressions: Service Date/Time: Tuesday, October 13, 2015 09:51 - CONCLUSION: 1. No evidence of deep venous thrombosis. John Anderson MD Renal Ultrasound 10/07/15 0000 Signed Impressions: Service Date/Time: Wednesday, October 07, 2015 18:29 - CONCLUSION: 1. No acute findings. 3.6 cm left renal cyst. Putnam catheter in bladder. Amaury Ellsworth MD Tunnelled Chest Tube Removal 08/05/15 1100 Signed Impressions: Service Date/Time: Wednesday, August 05, 2015 11:00 - CONCLUSION: Uncomplicated chest tube removal. Blaine Jackson MD Chest Tube Change 07/31/15 0000 Signed Impressions: Service Date/Time: Friday, July 31, 2015 14:34 - CONCLUSION: Uncomplicated reposition of previously placed chest tube as above. Blaine Jackson MD Chest Tube Insertion 07/30/15 0000 Signed Impressions: Service Date/Time: July 14:50 - CONCLUSION: Uncomplicated chest tube placement as above. Blaine Jackson MD Catheter Change 07/27/15 0000 Signed Impressions: Service Date/Time: Monday, July 27, 2015 14:43 - CONCLUSION: Uncomplicated gastrostomy tube exchange as above. Blaine Jackson MD Chest CT 07/11/15 0000 Signed Impressions: Service Date/Time: Saturday, July 11, 2015 09:49 - CONCLUSION: Scattered patchy densities significantly improved from previous study. Tiny anterior right basilar pneumothorax. Right-sided chest tube in good position. Néstor Matamoros MD Head CT 06/18/151902 Signed Impressions: Service Date/Time: , June 18, 2015 19:31 - CONCLUSION: Diffuse atrophy unchanged. No acute intracranial findings. Kush Briscoe MD Abdomen/Pelvis CT 06/18/151902 Signed Impressions: Service Date/Time: , June 18, 2015 19:36 - CONCLUSION: 1. Chronic nonspecific urinary bladder wall thickening. Bladder collapsed with Putnam catheter in place. 2. Chronic bilateral mid to lower lung zone groundglass opacity. 3. Nonobstructing left renal calculus. 4. Distended rectum. Kush Briscoe MD Objective Remarks GENERAL: NAD and unable to communicate-trachea in place SKIN: Warm and dry. HEAD: Normocephalic. EYES: No scleral icterus. No injection or drainage. NECK: Supple, trachea midline. No JVD or lymphadenopathy. CARDIOVASCULAR: Regular rate and rhythm without murmurs, gallops, or rubs. RESPIRATORY: Tachypneic, positive use of accessory muscle use. GASTROINTESTINAL: Abdomen soft, non-tender, nondistended. JG tube in place MUSCULOSKELETAL: No cyanosis, or edema. BACK: Nontender without obvious deformity. No CVA tenderness. Procedures 07/26- PEG replacement 07/29- right pigtail catheter placement for new pneumothorax A/P Problem List: (1) Sepsis ICD Code: A41.9 Status: Acute (2) HCAP (healthcare-associated pneumonia) ICD Code: J18.9 Status: Acute (3) Fever ICD Code: R50.9 Status: Resolved (4) Sepsis due to urinary tract infection ICD Code: A41.9 Status: Resolved (5) Chronic respiratory failure ICD Code: J96.10 Status: Chronic (6) Parkinson disease ICD Code: G20 Status: Chronic (7) UTI (urinary tract infection) ICD Code: N39.0 Status: Resolved (8) Encephalopathy ICD Code: G93.40 Status: Resolved (9) Feeding tube obstruction ICD Code: T85.598A Status: Resolved (10) Conjunctivitis ICD Code: H10.9 Status: Resolved (11) Hypotension ICD Code: I95.9 Status: Resolved Assessment and Plan 55-year-old male with New Sepsis sources: Tracheobronchitis and ESBL Kleb pneumo UTI MDR PSAE tracheobronchitis. ESBL MDR Kleb pneumo Cath associated UTI. h/o Recurrent aspiration tube feed related in past. Heena Cath associated UTI -Continue Meropenem IV (ASP: ESBL Kleb pneumo UTI), Tobramycin nebs and Levaquin per infectious disease specialist. Monitor culture. Chronic respiratory failure Chronic tracheostomy. Tolerated T piece. S/P recurrent right pneumothorax status post pigtail catheter removal. Currently on 28% oxygen 01/21. - Suction secretions and Levsin as needed -Continue prednisone 2.5 mg daily by pulmonology. BiPAP at night. Continue with Duo nebs 4 times a day and when necessary. Metabolic Encephalopathy Parkinson's disease underlying. neuro consulted . CT head 06/18/15: - diffuse atrophy unchanged. No acute intracranial findings. - Continue cognitive efforts , sinemet , s/p zyprexa Malnutrition/protein calorie - moderate Status post PEG. Concern for hematemesis 12/05. GI evaluated pt. Gastroccult was negative and hemoglobin has been stable. - Current Colace/senna for bowel regimen. - continue PPI.- Prevacid. - 02/03: J tube replacement due to dysfunction -IR to replace J G tube on 03/17/16 Bilateral lower extremity Contractures Stage II DU. - Wound care team following. - Continue physical therapy. - turn q 2 hours s/p b/l conjunctivitis : s/p abx eye drop GI prophylaxis: PPI. Stool softener PRN constipation. DVT PPx: Lovenox Problem Qualifiers (1) Fever: Qualified Code: R50.9 - Fever, unspecified fever cause (2) Chronic respiratory failure: Qualified Code: J96.10 - Chronic respiratory failure, unspecified whether with hypoxia or hypercapnia (3) UTI (urinary tract infection): Qualified Code: N30.00 - Acute cystitis without hematuria (4) Conjunctivitis: Qualified Code: H10.9 - Conjunctivitis of left eye, unspecified conjunctivitis type Néstor Linn MD Mar 17, 2016 09:54
[2016-03-17] MEDS ORDERED: IOHEXOL 350 MG/ML 50 ML BTL (for RAD DIAG) J-TUBE ONE (17:03)
--- NOTE | 2016-03-17 17:31 | RADRPT ---
EXAM DATE/TIME: 03/17/2016 16:28 [facility] COMPARISON: CHANGE OF GJ-TUBE CATHETER, February 26, 2016, 18:49. INDICATIONS : Patient with a history of encephalopathy, clogged GJ tube, needs nutrition. MEDICAL HISTORY : HTN, Diabetes, HLD, CAD, MRSA, C-Diff, Parkinsons disease, Pneumonia, GERD, Dementia, Aspiration pneu monia, DVT SURGICAL HISTORY : Trach, Left hip fx, PEG tube placement, CABG ENCOUNTER: Subsequent ACUITY: 7 - 11 months PAIN SCORE: 0/10 FLUORO TIME: 6.3 minutes CONTRAST: 25 cc Omnipaque (iohexol) 350 DEVICE(S): 1.) 22 [place] Transgastric tube PROCEDURE : 1. Fluoroscopically guided gastrojejunostomy tube exchange. 2. Conscious sedation with continuous EKG and oximetry monitoring. The risks, benefits and alternatives to the procedure were explained and verbal and written consent w as obtained. The site was prepped in sterile fashion. Full sterile technique was used, including ca p, mask, sterile gloves and gown and a large sterile sheet. Hand hygiene and 2% chlorhexidine and/or betadine/alcohol prep was utilized per protocol for cutaneous antisepsis. The skin and subcutaneous tissues were infiltrated with local anesthetic solution. With fluoroscopic guidance a guidewire was passed through the previous gastrojejunostomy tube and a f resh tube was placed over the guidewire. The balloon was inflated with appropriate volume of saline. Injection of positive contrast demonstrates good position of the gastric and jejunal lumens of the tube. Conscious sedation was performed with the prescribed dosages and duration as above. The patient lynsey ated the procedure well and there were no complications. EKG and oximetry remained stable throughout the procedure. The patient was sent to post anesthesia recovery in stable condition. CONCLUSION: Uncomplicated gastrojejunostomy tube exchange as above. John Anderson MD on March 17, 2016 at 17:29 Board Certified Radiologist. This report was verified electronically.
[2016-03-17] MEDS: COLLAGENASE OINT 30 GM TUBE TOP SCH (17:42)
--- NOTE | 2016-03-17 19:45 | HHI.PR ---
Subjective Remarks Awake and responds to some questions, and 0n a T bar FIO2 30 % . has no new problems breathing . On Bipap at HS. O2 Sat 98. . Objective Vital Signs Date Time Temp Pulse Resp B/P Pulse Ox O2 Delivery O2 Flow Rate FiO2 03/17/16 16:08 96.9 84 20 106/65 96 03/17/16 12:28 96.6 86 22 94/57 96 03/17/16 09:00 96 T-piece 6.00 70 03/17/16 08:32 96.2 86 20 106/68 100 03/17/16 08:17 T-Piece 6.00 60 Humidified 03/17/16 04:54 94 60 03/17/16 04:00 97.3 82 22 115/76 97 03/17/16 00:26 94 60 03/17/16 00:00 97.3 77 20 102/70 96 03/16/16 23:00 T-Piece 6.00 30 03/16/16 20:00 97.8 79 20 106/73 99 I/O 03/16/16 03/16/16 03/16/16 03/17/16 03/17/16 03/17/16 07:00 15:00 23:00 07:00 15:00 23:00 Intake Total 0 ml 650 ml Output Total 100 ml 500 ml 800 ml 500 ml Balance -100 ml -500 ml -150 ml -500 ml Intake Oral 0 ml IV Total 650 ml Output Urine Total 100 ml 500 ml 800 ml 500 ml # Bowel Movements 2 0 1 Result Diagram: 03/14/16 1555 03/15/16 0617 Objective Remarks This is a thin white male who is , awake with a trach tube in place.Trying to talk. HEENT: Pupils are equal and reactive to light. CHEST:Decreased breath sounds,with Occ Bilateral wheeze.Basal crackles. CARDIOVASCULAR: S1 and S2 is normal.No murmur. ABDOMEN: Soft, nondistended. BS +. He has a PEG and J tube in place. EXTREMITIES: Contractures.muscle wasting. NEURO: Awake and has weak extremities. Skin is warm. Assessment and Plan Assessment and Plan IMPRESSION 1. Chronic Respiratory failure. 2. Sepsis, Aspiration. 3. Left basal Pneumonia, Resolved 4. Bi Basal pneumonia 5. Parkinson's disease 6. Dementia. 7. Severe Deconditioning. Plan : 1. Wean Off Bipap if sats >92 on T Bar. 2. Nebs Bid , duoneb. 3. Tube feeds at 40 CC 4. T Bar 30 % all the time. 5. Labs .and reculture trach. 6. Cont Trach toilet and lavage. 7. Antibiotics per ID. 1 Darren Kiser MD Mar 17, 2016 19:45
[2016-03-18] VITALS (11 sets, daily range): BP systolic 94–108; BP diastolic 62–69; PULSE 75–100; RESP 20–28; TEMP 96.9–98.6; O2SAT 93–100
[2016-03-18] MEDS: DEXT 5%-NACL 0.45% 1000 ML INJ 1,000 ML IV SCH ×2 (00:52→15:24)
[2016-03-18] MEDS: MEROPENEM INJ 500 MG in SODIUM CHLORIDE 0.9% INJ 100 ML IV SCH ×3 (00:52→17:22)
[2016-03-18] MEDS: BETHANECHOL CHL 10 MG TAB PO SCH ×3 (05:51→22:54)
[2016-03-18] MEDS: FREE WATER G-TUBE SCH ×4 (05:56→23:48)
--- NOTE | 2016-03-18 07:07 | RADRPT ---
EXAM DATE/TIME: 03/18/2016 06:43 [facility] COMPARISON: CHEST SINGLE AP, March 14, 2016, 13:11. INDICATIONS : Short of breath, evaluate infiltrate MEDICAL HISTORY : Diabetes mellitus type II. respiratory failure SURGICAL HISTORY : g-tube ENCOUNTER: Subsequent ACUITY: 7 - 11 months PAIN SCORE: Non-responsive. LOCATION: Bilateral chest FINDINGS: ET tube remains above the kalie. Patient has developed consolidation retrocardiac and left base lowe r lobe with possible small associated effusion. Volume loss is noted in the left lung field. CONCLUSION: Development left lower lobe consolidation with left lung volume loss. Central obstructing lesion such as mucous plug cannot be excluded Reyes Jewell MD on March 18, 2016 at 7:03 Board Certified Radiologist. This report was verified electronically.
[2016-03-18] MEDS: LANSOPRAZOLE SOLUTAB 30 MG TAB NG SCH (07:47)
[2016-03-18] MEDS: predniSONE 5 MG TAB PO SCH (07:47)
[2016-03-18] MEDS: PARoxetine HCL 20 MG TAB G-TUBE SCH (07:47)
[2016-03-18] MEDS: CARBIDOPA/LEVODOPA 25 MG/100 MG TAB GT SCH ×4 (07:47→22:54)
[2016-03-18] MEDS: GABAPENTIN 300 MG CAP G-TUBE SCH ×2 (07:47→22:54)
[2016-03-18] MEDS: LACTOBACILLUS ACIDOPHILUS TAB PO SCH ×3 (07:47→17:23)
[2016-03-18] MEDS: LEVOFLOXACIN 500 MG TAB PO SCH (07:48)
[2016-03-18] MEDS: CHLORHEXIDINE GLUCONATE 0.12% 30 ML CUP MT SCH ×2 (08:00→22:54)
[2016-03-18] MEDS: ARTIFICIAL TEARS OPTH SOLN 15 ML BTL EACH EYE SCH ×3 (08:02→17:23)
[2016-03-18] MEDS: SODIUM CHLORIDE 0.9% FLUSH 5 ML FLUSH IVF SCH ×2 (08:02→22:54)
[2016-03-18 09:59] LABS: BLOOD GAS CARBOXYHEMOGLOBIN 1.3 % (0-4); BLOOD GAS HCO3 40 mmol/L (22-26); BLOOD GAS METHEMOGLOBIN 0.5 % (0-2); BLOOD GAS O2 HGB SATURATION 96 % (90-100); BLOOD GAS OXYGEN CONTENT 11.8 Vol % (12.0-20.0); BLOOD GAS PCO2 74 mmHg (38-42); BLOOD GAS PO2 102 mmHg (61-120); BLOOD GAS TOTAL HGB 8.6 G/DL (12.0-16.0); TEMP CORR TO 98.6
[2016-03-18 10:00] LABS: CRITICAL VALUE YES; OXYGEN DEVICE BiPAP
[2016-03-18 10:01] LABS: DRAW SITE RT RADIAL; FIO2 60 %; NUMBER OF ARTERIAL PUNCTURES 1; STAT NO; ULNAR PULSE PRESENT; VENT SETTINGS IPAP15/EPAP5
[2016-03-18] MEDS: RESP: TOBRAMYCIN SULFATE 80 MG/2 ML NEB NEB SCH ×2 (10:02→19:58)
--- NOTE | 2016-03-18 10:24 | HHI.PR ---
Subjective Remarks Follow-up Chronic encephalopathy with underlying diagnosis of advanced dementia as well as advanced Parkinson's disease.h/o Recurrent aspiration tube feed related in past. Now with Sepsis due to Tracheobronchitis and ESBL Kleb pneumo UTI 03/17/16-patient seen and examined, currently afebrile. Per nurse report patient's much more alert. Plan for replacement of GJ tube today by interventional radiology 03/18/16-patient seen and examined, and nonverbal. GJ tube was placed yesterday. Objective Vitals Vital Signs Date Time Temp Pulse Resp B/P Pulse Ox O2 Delivery O2 Flow Rate FiO2 03/18/16 10:03 98 60 03/18/16 09:17 T-Piece 6.00 03/18/16 08:00 98.6 80 20 94/62 96 03/18/16 05:33 97.7 93 28 107/62 98 03/18/16 05:12 98 60 03/18/16 00:55 T-Piece 6.00 03/18/16 00:33 97.2 85 22 108/65 98 03/18/16 00:20 95 60 03/17/16 21:40 100 T-piece 70 03/17/16 21:23 97.4 92 18 108/70 100 03/17/16 16:08 96.9 84 20 106/65 96 03/17/16 12:28 96.6 86 22 94/57 96 I/O 03/17/16 03/17/16 03/17/16 03/18/16 03/18/16 03/18/16 07:00 15:00 23:00 07:00 15:00 23:00 Output Total 500 ml 325 ml 800 ml Balance -500 ml -325 ml -800 ml Output Urine Total 500 ml 325 ml 800 ml # Bowel Movements 2 3 Result Diagram: 03/14/16 1555 03/15/16 0617 Objective Remarks GENERAL: NAD and unable to communicate-trachea in place SKIN: Warm and dry. HEAD: Normocephalic. EYES: No scleral icterus. No injection or drainage. NECK: Supple, trachea midline. No JVD or lymphadenopathy. CARDIOVASCULAR: Regular rate and rhythm without murmurs, gallops, or rubs. RESPIRATORY: Tachypneic, positive use of accessory muscle use. GASTROINTESTINAL: Abdomen soft, non-tender, nondistended. JG tube in place MUSCULOSKELETAL: No cyanosis, or edema. BACK: Nontender without obvious deformity. No CVA tenderness. Procedures 07/26- PEG replacement 07/29- right pigtail catheter placement for new pneumothorax A/P Problem List: (1) Sepsis ICD Code: A41.9 Status: Acute (2) HCAP (healthcare-associated pneumonia) ICD Code: J18.9 Status: Acute (3) Fever ICD Code: R50.9 Status: Resolved (4) Sepsis due to urinary tract infection ICD Code: A41.9 Status: Resolved (5) Chronic respiratory failure ICD Code: J96.10 Status: Chronic (6) Parkinson disease ICD Code: G20 Status: Chronic (7) UTI (urinary tract infection) ICD Code: N39.0 Status: Resolved (8) Encephalopathy ICD Code: G93.40 Status: Resolved (9) Feeding tube obstruction ICD Code: T85.598A Status: Resolved (10) Conjunctivitis ICD Code: H10.9 Status: Resolved (11) Hypotension ICD Code: I95.9 Status: Resolved Assessment and Plan 55-year-old male with New Sepsis sources: Tracheobronchitis and ESBL Kleb pneumo UTI MDR PSAE tracheobronchitis. ESBL MDR Kleb pneumo Cath associated UTI. h/o Recurrent aspiration tube feed related in past. Heena Cath associated UTI -Continue Meropenem IV (ASP: ESBL Kleb pneumo UTI), Tobramycin nebs and Levaquin per infectious disease specialist. Monitor culture. Chronic respiratory failure Chronic tracheostomy. Tolerated T piece. S/P recurrent right pneumothorax status post pigtail catheter removal. Currently on 28% oxygen 01/21. - Suction secretions and Levsin as needed -Continue prednisone 2.5 mg daily by pulmonology. BiPAP at night. Continue with Duo nebs 4 times a day and when necessary. Metabolic Encephalopathy Parkinson's disease underlying. neuro consulted . CT head 06/18/15: - diffuse atrophy unchanged. No acute intracranial findings. - Continue cognitive efforts , sinemet , s/p zyprexa Malnutrition/protein calorie - moderate Status post PEG. Concern for hematemesis 12/05. GI evaluated pt. Gastroccult was negative and hemoglobin has been stable. - Current Colace/senna for bowel regimen. - continue PPI.- Prevacid. - 02/03: J tube replacement due to dysfunction -IR replaced J G tube on 03/17/16 -Continue current tube feed Bilateral lower extremity Contractures Stage II DU. - Wound care team following. - Continue physical therapy. - turn q 2 hours s/p b/l conjunctivitis : s/p abx eye drop GI prophylaxis: PPI. Stool softener PRN constipation. DVT PPx: Lovenox Problem Qualifiers (1) Fever: Qualified Code: R50.9 - Fever, unspecified fever cause (2) Chronic respiratory failure: Qualified Code: J96.10 - Chronic respiratory failure, unspecified whether with hypoxia or hypercapnia (3) UTI (urinary tract infection): Qualified Code: N30.00 - Acute cystitis without hematuria (4) Conjunctivitis: Qualified Code: H10.9 - Conjunctivitis of left eye, unspecified conjunctivitis type Néstor Linn MD Mar 18, 2016 10:24
--- NOTE | 2016-03-18 12:17 | HHI.PR ---
Subjective Remarks Awake and 0n a Bipap FIO2 50 % . has some labored breathing . No fever . On Antibiotics. O2 Sat 96. .ABG show Hypercapnea. Objective Vital Signs Date Time Temp Pulse Resp B/P Pulse Ox O2 Delivery O2 Flow Rate FiO2 03/18/16 10:03 98 60 03/18/16 09:17 T-Piece 6.00 03/18/16 08:00 98.6 80 20 94/62 96 03/18/16 05:33 97.7 93 28 107/62 98 03/18/16 05:12 98 60 03/18/16 00:55 T-Piece 6.00 03/18/16 00:33 97.2 85 22 108/65 98 03/18/16 00:20 95 60 03/17/16 21:40 100 T-piece 70 03/17/16 21:23 97.4 92 18 108/70 100 03/17/16 16:08 96.9 84 20 106/65 96 03/17/16 12:28 96.6 86 22 94/57 96 I/O 03/17/16 03/17/16 03/17/16 03/18/16 03/18/16 03/18/16 07:00 15:00 23:00 07:00 15:00 23:00 Output Total 500 ml 325 ml 800 ml Balance -500 ml -325 ml -800 ml Output Urine Total 500 ml 325 ml 800 ml # Bowel Movements 2 3 Result Diagram: 03/14/16 1555 03/15/16 0617 Objective Remarks This is a thin white male who is , awake with a trach tube in place. HEENT: Pupils are equal and reactive to light. CHEST:Decreased breath sounds,with Occ Bilateral wheeze.Basal crackles. CARDIOVASCULAR: S1 and S2 is normal.No murmur. ABDOMEN: Soft, nondistended. BS +. He has a PEG and J tube in place. EXTREMITIES: Contractures.muscle wasting. NEURO: Awake and has weak extremities. Skin is warm.Lethargic Assessment and Plan Assessment and Plan IMPRESSION 1. Chronic Respiratory failure. 2. Sepsis, Aspiration. 3. Left basal Pneumonia, Resolved 4. Bi Basal pneumonia 5. Parkinson's disease 6. Dementia. 7. Severe Deconditioning. Plan : 1. Cont Bipap at 15/5 CM FIO2 45 % 2. Nebs Bid , duoneb. 3. Tube feeds at 40 CC 4. CXR on Monday 5. Labs .and ABG 6. Cont Trach toilet and lavage. 7. Antibiotics per ID. 8. Mucomyst Nebs 20 % , 2 CC qid. 1 Darren Kiser MD Mar 18, 2016 12:17
[2016-03-18] MEDS: RESP: ACETYLCYSTEINE 20% 30 ML NEB NEB SCH ×2 (16:00→19:58)
[2016-03-18] MEDS: COLLAGENASE OINT 30 GM TUBE TOP SCH (17:23)
[2016-03-18] MEDS: ENOXAPARIN SODIUM 40 MG/0.4 ML SYRINGE SQ SCH (22:55)
[2016-03-19] VITALS (12 sets, daily range): BP systolic 87–117; BP diastolic 53–74; PULSE 65–86; RESP 18–30; TEMP 96.1–97.7; O2SAT 93–99
[2016-03-19] MEDS: MEROPENEM INJ 500 MG in SODIUM CHLORIDE 0.9% INJ 100 ML IV SCH ×3 (00:54→16:24)
[2016-03-19] MEDS: RESP: ACETYLCYSTEINE 20% 30 ML NEB NEB SCH ×4 (05:19→20:55)
[2016-03-19] MEDS: FREE WATER G-TUBE SCH ×3 (06:00→17:43)
[2016-03-19] MEDS: BETHANECHOL CHL 10 MG TAB PO SCH ×3 (07:32→21:37)
[2016-03-19] MEDS: DEXT 5%-NACL 0.45% 1000 ML INJ 1,000 ML IV SCH ×2 (07:32→21:38)
[2016-03-19] MEDS: CHLORHEXIDINE GLUCONATE 0.12% 30 ML CUP MT SCH ×2 (08:00→21:37)
[2016-03-19] MEDS: SODIUM CHLORIDE 0.9% FLUSH 5 ML FLUSH IVF SCH ×2 (09:00→21:00)
[2016-03-19] MEDS: ARTIFICIAL TEARS OPTH SOLN 15 ML BTL EACH EYE SCH ×3 (09:00→17:43)
[2016-03-19] MEDS: COLLAGENASE OINT 30 GM TUBE TOP SCH (09:00)
[2016-03-19] MEDS: LACTOBACILLUS ACIDOPHILUS TAB PO SCH ×3 (09:04→17:43)
[2016-03-19] MEDS: LANSOPRAZOLE SOLUTAB 30 MG TAB NG SCH (09:04)
[2016-03-19] MEDS: predniSONE 5 MG TAB PO SCH (09:04)
[2016-03-19] MEDS: PARoxetine HCL 20 MG TAB G-TUBE SCH (09:04)
[2016-03-19] MEDS: GABAPENTIN 300 MG CAP G-TUBE SCH ×2 (09:04→21:37)
[2016-03-19] MEDS: LEVOFLOXACIN 500 MG TAB PO SCH (09:04)
[2016-03-19] MEDS: CARBIDOPA/LEVODOPA 25 MG/100 MG TAB GT SCH ×4 (09:05→21:37)
[2016-03-19] MEDS: RESP: ALBUTEROL 2.5 MG/3 ML NEB (PRN) NEB ×3 (09:28→20:55)
[2016-03-19] MEDS: RESP: TOBRAMYCIN SULFATE 80 MG/2 ML NEB NEB SCH ×2 (09:39→22:11)
--- NOTE | 2016-03-19 13:40 | HHI.PR ---
Subjective Remarks Follow-up Chronic encephalopathy with underlying diagnosis of advanced dementia as well as advanced Parkinson's disease.h/o Recurrent aspiration tube feed related in past. Now with Sepsis due to Tracheobronchitis and ESBL Kleb pneumo UTI 03/17/16-patient seen and examined, currently afebrile. Per nurse report patient's much more alert. Plan for replacement of GJ tube today by interventional radiology 03/18/16-patient seen and examined, and nonverbal. GJ tube was placed yesterday. 03/19/16-patient seen and examined. Secondary to episode of oxygen desaturation patient currently on BiPAP. Afebrile and nonverbal. Objective Vitals Vital Signs Date Time Temp Pulse Resp B/P Pulse Ox O2 Delivery O2 Flow Rate FiO2 03/19/16 12:12 96.7 83 20 87/53 97 03/19/16 09:51 99 T-piece 40 03/19/16 09:28 99 50 03/19/16 08:29 96.6 65 18 117/74 99 03/19/16 05:41 97 50 03/19/16 04:23 97.7 70 21 114/71 93 03/19/16 01:02 97.0 82 20 99/69 97 03/18/16 21:30 Bi-Pap T-Piece 03/18/16 20:17 97.2 75 22 102/63 97 03/18/16 20:05 100 50 03/18/16 16:00 96.9 94 22 102/69 100 I/O 03/18/16 03/18/16 03/18/16 03/19/16 03/19/16 03/19/16 07:00 15:00 23:00 07:00 15:00 23:00 Intake Total 4821 ml Output Total 800 ml 400 ml 700 ml Balance -800 ml -400 ml 4821 ml -700 ml IV Total 3821 ml Tube Feeding 1000 ml Output Urine Total 800 ml 400 ml 700 ml # Bowel Movements 3 1 Result Diagram: 03/15/16616 Objective Remarks GENERAL: NAD and unable to communicate-trachea in place SKIN: Warm and dry. HEAD: Normocephalic. EYES: No scleral icterus. No injection or drainage. NECK: Supple, trachea midline. No JVD or lymphadenopathy. CARDIOVASCULAR: Regular rate and rhythm without murmurs, gallops, or rubs. RESPIRATORY: Tachypneic, positive use of accessory muscle use. GASTROINTESTINAL: Abdomen soft, non-tender, nondistended. JG tube in place MUSCULOSKELETAL: No cyanosis, or edema. BACK: Nontender without obvious deformity. No CVA tenderness. Procedures 07/26- PEG replacement 07/29- right pigtail catheter placement for new pneumothorax A/P Problem List: (1) Sepsis ICD Code: A41.9 Status: Acute (2) HCAP (healthcare-associated pneumonia) ICD Code: J18.9 Status: Acute (3) Fever ICD Code: R50.9 Status: Resolved (4) Sepsis due to urinary tract infection ICD Code: A41.9 Status: Resolved (5) Chronic respiratory failure ICD Code: J96.10 Status: Chronic (6) Parkinson disease ICD Code: G20 Status: Chronic (7) UTI (urinary tract infection) ICD Code: N39.0 Status: Resolved (8) Encephalopathy ICD Code: G93.40 Status: Resolved (9) Feeding tube obstruction ICD Code: T85.598A Status: Resolved (10) Conjunctivitis ICD Code: H10.9 Status: Resolved (11) Hypotension ICD Code: I95.9 Status: Resolved Assessment and Plan 55-year-old male with New Sepsis sources: Tracheobronchitis and ESBL Kleb pneumo UTI MDR PSAE tracheobronchitis. ESBL MDR Kleb pneumo Cath associated UTI. h/o Recurrent aspiration tube feed related in past. Heena Cath associated UTI -Continue Meropenem IV (ASP: ESBL Kleb pneumo UTI), Tobramycin nebs and Levaquin per infectious disease specialist. Monitor culture. Chronic respiratory failure Chronic tracheostomy. Tolerated T piece. S/P recurrent right pneumothorax status post pigtail catheter removal. Currently on 28% oxygen 01/21. - Suction secretions and Levsin as needed -Continue prednisone 2.5 mg daily by pulmonology. BiPAP currently on. Continue with Duo nebs 4 times a day and when necessary. Metabolic Encephalopathy Parkinson's disease underlying. neuro consulted . CT head 06/18/15: - diffuse atrophy unchanged. No acute intracranial findings. - Continue cognitive efforts , sinemet , s/p zyprexa Malnutrition/protein calorie - moderate Status post PEG. Concern for hematemesis 12/05. GI evaluated pt. Gastroccult was negative and hemoglobin has been stable. - Current Colace/senna for bowel regimen. - continue PPI.- Prevacid. - 02/03: J tube replacement due to dysfunction -IR replaced J G tube on 03/17/16 -Continue current tube feed Bilateral lower extremity Contractures Stage II DU. - Wound care team following. - Continue physical therapy. - turn q 2 hours s/p b/l conjunctivitis : Resolved. S/p abx eye drop GI prophylaxis: PPI. Stool softener PRN constipation. DVT PPx: Lovenox Problem Qualifiers (1) Fever: Qualified Code: R50.9 - Fever, unspecified fever cause (2) Chronic respiratory failure: Qualified Code: J96.10 - Chronic respiratory failure, unspecified whether with hypoxia or hypercapnia (3) UTI (urinary tract infection): Qualified Code: N30.00 - Acute cystitis without hematuria (4) Conjunctivitis: Qualified Code: H10.9 - Conjunctivitis of left eye, unspecified conjunctivitis type Néstor Linn MD Mar 19, 2016 13:40
[2016-03-19] MEDS: ENOXAPARIN SODIUM 40 MG/0.4 ML SYRINGE SQ SCH (21:37)
[2016-03-20] VITALS (12 sets, daily range): BP systolic 89–109; BP diastolic 41–69; PULSE 65–95; RESP 14–30; TEMP 96.1–99.1; O2SAT 94–100
[2016-03-20] MEDS: MEROPENEM INJ 500 MG in SODIUM CHLORIDE 0.9% INJ 100 ML IV SCH ×3 (00:44→17:00)
[2016-03-20] MEDS: RESP: ACETYLCYSTEINE 20% 30 ML NEB NEB SCH ×4 (05:24→21:28)
[2016-03-20] MEDS: RESP: ALBUTEROL 2.5 MG/3 ML NEB (PRN) NEB ×4 (05:24→21:28)
[2016-03-20] MEDS: FREE WATER G-TUBE SCH ×4 (06:00→17:51)
[2016-03-20] MEDS: BETHANECHOL CHL 10 MG TAB PO SCH ×3 (06:15→21:38)
[2016-03-20] MEDS: PARoxetine HCL 20 MG TAB G-TUBE SCH (07:45)
[2016-03-20] MEDS: GABAPENTIN 300 MG CAP G-TUBE SCH ×2 (07:45→21:38)
[2016-03-20] MEDS: LACTOBACILLUS ACIDOPHILUS TAB PO SCH ×3 (07:46→17:52)
[2016-03-20] MEDS: LANSOPRAZOLE SOLUTAB 30 MG TAB NG SCH (07:46)
[2016-03-20] MEDS: CARBIDOPA/LEVODOPA 25 MG/100 MG TAB GT SCH ×4 (07:46→21:38)
[2016-03-20] MEDS: LEVOFLOXACIN 500 MG TAB PO SCH (07:47)
[2016-03-20] MEDS: ARTIFICIAL TEARS OPTH SOLN 15 ML BTL EACH EYE SCH ×3 (07:48→17:51)
[2016-03-20] MEDS: CHLORHEXIDINE GLUCONATE 0.12% 30 ML CUP MT SCH ×2 (07:48→21:38)
[2016-03-20] MEDS: predniSONE 5 MG TAB PO SCH (07:48)
[2016-03-20] MEDS: SODIUM CHLORIDE 0.9% FLUSH 5 ML FLUSH IVF SCH ×2 (07:49→21:00)
[2016-03-20] MEDS: COLLAGENASE OINT 30 GM TUBE TOP SCH (07:49)
[2016-03-20] MEDS: RESP: TOBRAMYCIN SULFATE 80 MG/2 ML NEB NEB SCH ×2 (08:39→21:54)
--- NOTE | 2016-03-20 10:51 | HHI.PR ---
Subjective Remarks Follow-up Chronic encephalopathy with underlying diagnosis of advanced dementia as well as advanced Parkinson's disease.h/o Recurrent aspiration tube feed related in past. Now with Sepsis due to Tracheobronchitis and ESBL Kleb pneumo UTI 03/17/16-patient seen and examined, currently afebrile. Per nurse report patient's much more alert. Plan for replacement of GJ tube today by interventional radiology 03/18/16-patient seen and examined, and nonverbal. GJ tube was placed yesterday. 03/19/16-patient seen and examined. Secondary to episode of oxygen desaturation patient currently on BiPAP. Afebrile and nonverbal. 03/20/16-patient seen and examined, T-piece in place and monitoring for episode of desaturation. No other issues Objective Vitals Vital Signs Date Time Temp Pulse Resp B/P Pulse Ox O2 Delivery O2 Flow Rate FiO2 03/20/16 08:38 99 T-piece 6.00 35 03/20/16 08:00 99.1 80 28 89/62 95 03/20/16 05:35 96 45 03/20/16 04:45 97.8 65 14 89/57 97 03/20/16 02:46 96 45 03/20/16 00:56 96.1 80 28 99/41 95 03/19/16 22:20 98 45 03/19/16 22:08 Bi-Pap 45 03/19/16 20:56 96.1 86 30 97/63 98 03/19/16 20:55 99 45 03/19/16 20:55 99 BiPAP 45 03/19/16 16:31 98 45 03/19/16 16:07 96.8 80 22 91/58 94 03/19/16 12:12 96.7 83 20 87/53 97 03/19/16 11:00 Bi-Pap 65 I/O 03/19/16 03/19/16 03/19/16 03/20/16 03/20/16 03/20/16 07:00 15:00 23:00 07:00 15:00 23:00 Intake Total 1860 ml Output Total 700 ml 350 ml 750 ml Balance -700 ml -350 ml -750 ml 1860 ml IV Total 880 ml Tube Feeding 480 ml Other 500 ml Output Urine Total 700 ml 350 ml 750 ml # Bowel Movements 1 Objective Remarks GENERAL: NAD and unable to communicate-trachea in place SKIN: Warm and dry. HEAD: Normocephalic. EYES: No scleral icterus. No injection or drainage. NECK: Supple, trachea midline. No JVD or lymphadenopathy. CARDIOVASCULAR: Regular rate and rhythm without murmurs, gallops, or rubs. RESPIRATORY: Tachypneic, positive use of accessory muscle use. GASTROINTESTINAL: Abdomen soft, non-tender, nondistended. JG tube in place MUSCULOSKELETAL: No cyanosis, or edema. BACK: Nontender without obvious deformity. No CVA tenderness. Procedures 07/26- PEG replacement 07/29- right pigtail catheter placement for new pneumothorax A/P Problem List: (1) Sepsis ICD Code: A41.9 Status: Acute (2) HCAP (healthcare-associated pneumonia) ICD Code: J18.9 Status: Acute (3) Fever ICD Code: R50.9 Status: Resolved (4) Sepsis due to urinary tract infection ICD Code: A41.9 Status: Resolved (5) Chronic respiratory failure ICD Code: J96.10 Status: Chronic (6) Parkinson disease ICD Code: G20 Status: Chronic (7) UTI (urinary tract infection) ICD Code: N39.0 Status: Resolved (8) Encephalopathy ICD Code: G93.40 Status: Resolved (9) Feeding tube obstruction ICD Code: T85.598A Status: Resolved (10) Conjunctivitis ICD Code: H10.9 Status: Resolved (11) Hypotension ICD Code: I95.9 Status: Resolved Assessment and Plan 55-year-old male with New Sepsis sources: Tracheobronchitis and ESBL Kleb pneumo UTI MDR PSAE tracheobronchitis. ESBL MDR Kleb pneumo Cath associated UTI. h/o Recurrent aspiration tube feed related in past. Heena Cath associated UTI -Continue Meropenem IV (ASP: ESBL Kleb pneumo UTI), Tobramycin nebs and Levaquin per infectious disease specialist. Monitor culture. Chronic respiratory failure Chronic tracheostomy. Tolerating T piece. S/P recurrent right pneumothorax status post pigtail catheter removal. - Suction secretions and Levsin as needed -Continue prednisone 2.5 mg daily by pulmonology. BiPAP @ night. Continue with Duo nebs 4 times a day and when necessary. Metabolic Encephalopathy Parkinson's disease underlying. - Continue cognitive efforts , sinemet , s/p zyprexa Malnutrition/protein calorie - moderate Status post PEG. - Current Colace/senna for bowel regimen. - continue PPI.- Prevacid. - 02/03: J tube replacement due to dysfunction -IR replaced J G tube on 03/17/16 -Continue current tube feed Bilateral lower extremity Contractures Stage II DU. - Wound care team following. - Continue physical therapy. - turn q 2 hours s/p b/l conjunctivitis : Resolved. S/p abx eye drop GI prophylaxis: PPI. Stool softener PRN constipation. DVT PPx: Lovenox Problem Qualifiers (1) Fever: Qualified Code: R50.9 - Fever, unspecified fever cause (2) Chronic respiratory failure: Qualified Code: J96.10 - Chronic respiratory failure, unspecified whether with hypoxia or hypercapnia (3) UTI (urinary tract infection): Qualified Code: N30.00 - Acute cystitis without hematuria (4) Conjunctivitis: Qualified Code: H10.9 - Conjunctivitis of left eye, unspecified conjunctivitis type Néstor Linn MD Mar 20, 2016 10:51
[2016-03-20] MEDS: DEXT 5%-NACL 0.45% 1000 ML INJ 1,000 ML IV SCH (13:36)
[2016-03-20] MEDS: ENOXAPARIN SODIUM 40 MG/0.4 ML SYRINGE SQ SCH (21:38)
[2016-03-21] VITALS (10 sets, daily range): BP systolic 93–133; BP diastolic 63–117; PULSE 76–90; RESP 20–36; TEMP 96–98.7; O2SAT 94–99
[2016-03-21] MEDS: MEROPENEM INJ 500 MG in SODIUM CHLORIDE 0.9% INJ 100 ML IV SCH ×3 (00:48→16:26)
[2016-03-21] MEDS: RESP: ACETYLCYSTEINE 20% 30 ML NEB NEB SCH ×4 (04:45→20:56)
[2016-03-21] MEDS: RESP: ALBUTEROL 2.5 MG/3 ML NEB (PRN) NEB ×4 (04:46→20:56)
[2016-03-21] MEDS: FREE WATER G-TUBE SCH ×5 (06:00→23:02)
[2016-03-21] MEDS: BETHANECHOL CHL 10 MG TAB PO SCH ×3 (06:14→23:02)
[2016-03-21] MEDS: DEXT 5%-NACL 0.45% 1000 ML INJ 1,000 ML IV SCH ×2 (06:14→16:25)
[2016-03-21] MEDS: RESP: TOBRAMYCIN SULFATE 80 MG/2 ML NEB NEB SCH (09:55)
[2016-03-21] MEDS: LEVOFLOXACIN 500 MG TAB PO SCH (10:48)
[2016-03-21] MEDS: CHLORHEXIDINE GLUCONATE 0.12% 30 ML CUP MT SCH ×2 (10:48→23:00)
[2016-03-21] MEDS: CARBIDOPA/LEVODOPA 25 MG/100 MG TAB GT SCH ×4 (10:50→23:01)
[2016-03-21] MEDS: PARoxetine HCL 20 MG TAB G-TUBE SCH (10:50)
[2016-03-21] MEDS: LACTOBACILLUS ACIDOPHILUS TAB PO SCH ×3 (10:50→18:21)
[2016-03-21] MEDS: predniSONE 5 MG TAB PO SCH (10:50)
[2016-03-21] MEDS: GABAPENTIN 300 MG CAP G-TUBE SCH ×2 (10:50→23:00)
[2016-03-21] MEDS: SODIUM CHLORIDE 0.9% FLUSH 5 ML FLUSH IVF SCH ×2 (10:51→21:00)
[2016-03-21] MEDS: LANSOPRAZOLE SOLUTAB 30 MG TAB NG SCH (10:51)
[2016-03-21] MEDS: ARTIFICIAL TEARS OPTH SOLN 15 ML BTL EACH EYE SCH ×3 (10:51→18:19)
[2016-03-21] MEDS: COLLAGENASE OINT 30 GM TUBE TOP SCH (10:51)
--- NOTE | 2016-03-21 12:39 | HHI.PR ---
Subjective Remarks Follow-up Chronic encephalopathy with underlying diagnosis of advanced dementia as well as advanced Parkinson's disease.h/o Recurrent aspiration tube feed related in past. Now with Sepsis due to Tracheobronchitis and ESBL Kleb pneumo UTI 03/17/16-patient seen and examined, currently afebrile. Per nurse report patient's much more alert. Plan for replacement of GJ tube today by interventional radiology 03/18/16-patient seen and examined, and nonverbal. GJ tube was placed yesterday. 03/19/16-patient seen and examined. Secondary to episode of oxygen desaturation patient currently on BiPAP. Afebrile and nonverbal. 03/20/16-patient seen and examined, T-piece in place and monitoring for episode of desaturation. No other issues 03/21/16-patient seen and examined, currently on continuous BiPAP Objective Vitals Vital Signs Date Time Temp Pulse Resp B/P Pulse Ox O2 Delivery O2 Flow Rate FiO2 03/21/16 12:24 96.5 78 21 124/79 98 03/21/16 12:24 98 45 03/21/16 09:42 96 45 03/21/16 08:00 96.0 76 22 93/65 97 03/21/16 05:29 96 45 03/21/16 00:50 97 45 03/21/16 00:00 98.7 90 32 133/63 95 03/20/16 21:28 97 45 03/20/16 21:00 Bi-Pap 45 03/20/16 20:00 98.2 95 28 109/ 94 03/20/16 16:33 100 45 03/20/16 16:00 96.8 87 28 103/69 94 I/O 03/20/16 03/20/16 03/20/16 03/21/16 03/21/16 03/21/16 07:00 15:00 23:00 07:00 15:00 23:00 Intake Total 1860 ml 1890 ml Output Total 750 ml 1050 ml 550 ml Balance -750 ml 810 ml -550 ml 1890 ml IV Total 880 ml 880 ml Tube Feeding 480 ml 530 ml Other 500 ml 480 ml Output Urine Total 750 ml 1050 ml 550 ml # Bowel Movements 1 Objective Remarks GENERAL: NAD and unable to communicate-trachea in place SKIN: Warm and dry. HEAD: Normocephalic. EYES: No scleral icterus. No injection or drainage. NECK: Supple, trachea midline. No JVD or lymphadenopathy. CARDIOVASCULAR: Regular rate and rhythm without murmurs, gallops, or rubs. RESPIRATORY: Tachypneic, positive use of accessory muscle use. GASTROINTESTINAL: Abdomen soft, non-tender, nondistended. JG tube in place MUSCULOSKELETAL: No cyanosis, or edema. BACK: Nontender without obvious deformity. No CVA tenderness. Procedures 07/26- PEG replacement 07/29- right pigtail catheter placement for new pneumothorax A/P Problem List: (1) Sepsis ICD Code: A41.9 Status: Acute (2) HCAP (healthcare-associated pneumonia) ICD Code: J18.9 Status: Acute (3) Fever ICD Code: R50.9 Status: Resolved (4) Sepsis due to urinary tract infection ICD Code: A41.9 Status: Resolved (5) Chronic respiratory failure ICD Code: J96.10 Status: Chronic (6) Parkinson disease ICD Code: G20 Status: Chronic (7) UTI (urinary tract infection) ICD Code: N39.0 Status: Resolved (8) Encephalopathy ICD Code: G93.40 Status: Resolved (9) Feeding tube obstruction ICD Code: T85.598A Status: Resolved (10) Conjunctivitis ICD Code: H10.9 Status: Resolved (11) Hypotension ICD Code: I95.9 Status: Resolved Assessment and Plan 55-year-old male with New Sepsis sources: Tracheobronchitis and ESBL Kleb pneumo UTI MDR PSAE tracheobronchitis. ESBL MDR Kleb pneumo Cath associated UTI. h/o Recurrent aspiration tube feed related in past. Heena Cath associated UTI -Continue Meropenem IV (ASP: ESBL Kleb pneumo UTI), Tobramycin nebs and Levaquin per infectious disease specialist. Monitor culture. Chronic respiratory failure Chronic tracheostomy. Currently on continuous BiPAP. T piece off. S/P recurrent right pneumothorax status post pigtail catheter removal. - Suction secretions and Levsin as needed -Continue prednisone 2.5 mg daily by pulmonology. Continue with Duo nebs 4 times a day and when necessary. Metabolic Encephalopathy Parkinson's disease underlying. - Continue cognitive efforts , sinemet , s/p zyprexa Malnutrition/protein calorie - moderate Status post PEG. - Current Colace/senna for bowel regimen. - continue PPI.- Prevacid. - 02/03: J tube replacement due to dysfunction -IR replaced J G tube on 03/17/16 -Continue current tube feed Bilateral lower extremity Contractures Stage II DU. - Wound care team following. - Continue physical therapy. - turn q 2 hours s/p b/l conjunctivitis : Resolved. S/p abx eye drop GI prophylaxis: PPI. Stool softener PRN constipation. DVT PPx: Lovenox Will transfer patient to [facility]. Problem Qualifiers (1) Fever: Qualified Code: R50.9 - Fever, unspecified fever cause (2) Chronic respiratory failure: Qualified Code: J96.10 - Chronic respiratory failure, unspecified whether with hypoxia or hypercapnia (3) UTI (urinary tract infection): Qualified Code: N30.00 - Acute cystitis without hematuria (4) Conjunctivitis: Qualified Code: H10.9 - Conjunctivitis of left eye, unspecified conjunctivitis type Néstor Linn MD Mar 21, 2016 12:39
--- NOTE | 2016-03-21 17:14 | HHI.HCPN ---
Reason for visit a. To assist with evaluation and management of symptoms including: pain, malnutrition, dyspnea. b. To assist medical decision maker(s) with: better understanding of current medical conditions; weighing benefits/burdens of medical treatment options; making medical treatment decisions. . Subjective/Interval History Patient seen and examined in room. No family at bedside. Patient is alert, turns slightly to the left to voice. Does not answer questions, moves mouth, unable to understand if he is appropriately attempting to answer questions or not. He does not follow commands. Afebrile. Vital signs stable. On BiPAP to tracheostomy. No new labs. 03/14/16 sputum culture positive pseudomonas aeruginosa, he remains on tobramycin meropenem and Levaquin. No new imaging. Nursing pain level scores 0 over last 24 hours. No opiate analgesics given since 03/16/16 when he was medicated with hydrocodone 5/325 mg. . Advance Directives Living Will: Never completed Health Care Surrogate: Copy in medical record Durable Power of Computer Security Specialist: Never completed Advance Directive Specifics Date completed: Patient visited Scott Mack, Computer Security Specialist in March and again in November 2014. The patient was encouraged to complete Advance directive documents but never did them. Dr. Pickard personally called Mr. Mack ([phone]) to check for advance directives. Health Care Surrogate(s): The patient completed a health care surrogate document dated 09/02/14 desigating his friend Bola Nolasco as surrogate. Mr. Nolasco was not aware of this and has declined serving in that capacity. The patient has an adult daughter -- Radha Foreman who is willing to serve as health care proxy decision maker. Patient's mother, Teresa is aware. Significant change in goals: NO CODE - No cardiac resuscitation, shock, ACLS or mech vent, no Pressors. Objective Vital Signs Date Time Temp Pulse Resp B/P Pulse Ox O2 Delivery O2 Flow Rate FiO2 03/21/16 16:49 97 45 03/21/16 15:54 97.5 87 20 118/73 99 03/21/16 12:24 96.5 78 21 124/79 98 03/21/16 12:24 98 45 03/21/16 09:42 96 45 03/21/16 08:00 96.0 76 22 93/65 97 03/21/16 05:29 96 45 2/13/17 00:50 97 45 03/21/16 00:00 98.7 90 32 133/63 95 03/20/16 21:28 97 45 03/20/16 21:00 Bi-Pap 45 03/20/16 20:00 98.2 95 28 109/ 94 Intake & Output 03/21/16 03/21/16 07:00 19:00 Intake Total 1890 ml Output Total 550 ml 750 ml Balance -550 ml 1140 ml IV Total 880 ml Tube Feeding 530 ml Other 480 ml Output Urine Total 550 ml 750 ml Physical Exam CONSTITUTIONAL/GENERAL: This is a thin, pale, contracted, chronically ill appearing male. On BiPAP to trach. TUBES/LINES/DRAINS: Trach, PIV left foot, valdez cath, G-J tube, SKIN: Pale. Sacral wound not examined today. Not diaphoretic. NECK: Tracheostomy to BiPAP. CARDIOVASCULAR: Regular rate and rhythm without murmurs, gallops, or rubs. No JVD. RESPIRATORY/CHEST: Tachypneic, but not using accessory muscles .Breath sounds equal bilaterally with scattered rhonchi. GASTROINTESTINAL: Abdomen soft, non-tender, nondistended. GENITOURINARY: Without palpable bladder distension. catheter in place. MUSCULOSKELETAL: Contractures of bilateral upper and right lower extremities appear more rigid. No mottling. NEUROLOGICAL: Eyes open. Appeared to hear me and track to left only briefly. Mouths something when asks if he has pain, unable to determine if he understands , I am not able to determine what he is mouthing. Does not follow commands. PSYCHIATRIC: Unable to assess due to level of responsiveness. . Diagnostic Tests Imaging Last Impressions Chest X-Ray 03/18/16 0600 Signed Impressions: Service Date/Time: Friday, March 18, 2016 06:43 - CONCLUSION: Development left lower lobe consolidation with left lung volume loss. Central obstructing lesion such as mucous plug cannot be excluded Reyes Jewell MD Tube Change 03/17/16 1051 Signed Impressions: Service Date/Time: March 16:28 - CONCLUSION: Uncomplicated gastrojejunostomy tube exchange as above. John Anderson MD Tube Check 02/12/16 0000 Signed Impressions: Service Date/Time: Friday, February 12, 2016 16:08 - CONCLUSION: Uncomplicated tube injection as above. Blaine Jackson MD Gastrostomy Tube Change 01/15/16 0000 Signed Impressions: Service Date/Time: Friday, January 15, 2016 12:28 - CONCLUSION: Successful GJ tube exchange as above. Scott Goode MD Abdomen X-Ray 01/12/16 1628 Signed Impressions: Service Date/Time: Tuesday, January 12, 2016 17:35 - CONCLUSION: No evidence of obstruction or free air. Reyes Jewell MD Abdomen Ultrasound 12/06/15 0000 Signed Impressions: Service Date/Time: Sunday, December 06, 2015 17:42 - CONCLUSION: 1. The gallbladder is unremarkable with no evidence of cholelithiasis. 2. Simple cyst in the left kidney. 3. Mild pyelocaliectasis in the right kidney. Salazar Thurman MD Upper Extremity Ultrasound 10/13/15 0000 Signed Impressions: Service Date/Time: Tuesday, October 13, 2015 09:51 - CONCLUSION: 1. No evidence of deep venous thrombosis. John Anderson MD Renal Ultrasound 10/07/15 0000 Signed Impressions: Service Date/Time: Wednesday, October 07, 2015 18:29 - CONCLUSION: 1. No acute findings. 3.6 cm left renal cyst. Valdez catheter in bladder. Amaury Ellsworth MD Tunnelled Chest Tube Removal 08/05/15 1100 Signed Impressions: Service Date/Time: Wednesday, August 05, 2015 11:00 - CONCLUSION: Uncomplicated chest tube removal. Blaine Jackson MD Chest Tube Change 07/31/15 0000 Signed Impressions: Service Date/Time: Friday, July 31, 2015 14:34 - CONCLUSION: Uncomplicated reposition of previously placed chest tube as above. Blaine Jackson MD Chest Tube Insertion 07/30/15 0000 Signed Impressions: Service Date/Time: July 14:50 - CONCLUSION: Uncomplicated chest tube placement as above. Blaine Jackson MD Catheter Change 07/27/15 0000 Signed Impressions: Service Date/Time: Monday, July 27, 2015 14:43 - CONCLUSION: Uncomplicated gastrostomy tube exchange as above. Blaine Jackson MD Chest CT 07/11/15 0000 Signed Impressions: Service Date/Time: Saturday, July 11, 2015 09:49 - CONCLUSION: Scattered patchy densities significantly improved from previous study. Tiny anterior right basilar pneumothorax. Right-sided chest tube in good position. Néstor Matamoros MD Head CT 06/18/151902 Signed Impressions: Service Date/Time: June 19:31 - CONCLUSION: Diffuse atrophy unchanged. No acute intracranial findings. Kush Briscoe MD Abdomen/Pelvis CT 06/18/151902 Signed Impressions: Service Date/Time: June 19:36 - CONCLUSION: 1. Chronic nonspecific urinary bladder wall thickening. Bladder collapsed with Valdez catheter in place. 2. Chronic bilateral mid to lower lung zone groundglass opacity. 3. Nonobstructing left renal calculus. 4. Distended rectum. Kush Briscoe MD . Procedures * 03/17/16 - GJ tube exchange. * 02/27/16 - GJ tube exchange. * 02/03/16 GJ tube exchange * 01/27/16 - GJ tube exchange * 08/05/15 - chest tube removal * 07/31/15 chest tube change x 2 * 07/17/15 - Chest tube removal * 07/07/15 - Chest tube placement on right * mechanical ventilation . Assessment and Plan Disease Oriented Problem List: (1) Acute respiratory failure Comment: 10/13/15 - Halicat for hypotension and tube feeding coming from trach. Daughter has since elected no mech vent, no chest compressions, shock or ACLS. . (2) Chronic respiratory failure (3) Pneumonia Comment: recurrent aspiration. . (4) UTI (urinary tract infection) Comment: . (5) Parkinson disease (6) Moderate malnutrition Symptom Scale: (1) Pain 0-10 Scale: Unable to quantify (Pt unable to quantify, nurse reports level 1) Comment: Sources of pain might include wound, prolonged bedbound status, contractures, restraints, valdez, vascular access catheters. Appears comfortable on current regimen. ,l (2) Dyspnea 0-10 Scale: Unable to quantify Comment: On BiPAP. Ongoing high risk of recurrent aspiration pneumonia currently being treated. . . (3) Malnutrition 0-10 Scale: Unable to quantify Comment: On tube feeding. . (4) Encephalopathy 0-10 Scale: Unable to quantify Comment: Remains minimally responsive. . Pertinent Non-Medical Issues Psychosocial: care home halfway resident. 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 Severe dementia. Daughter, mother, and brother are involved. Spiritual: Hindu. Has been a member for the [facility] ep[employer] and members have provided both community support and spiritual support in the past. Legal: No advance directives. Daughter (Radha Foreman) is legal proxy and lives 4 hours away. She can be quite difficult to contact by phone. Ethical issues impacting care: None. . Important Contacts * Radha Foreman (daughter and proxy) [phone] * Teresa Perea (mother -- lives in [place]) [phone] . Prognosis Patient has end stage Parkinson's with end stage dementia. 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 He is a chronic trach/PEG tube patient with contractures and skin breakdown. He has been hospitalized here over 250 days on this admission and moves back and forth from floor to ICU for recurrent pneumonia (probably from aspirations) and sepsis. Should family continue to want aggressive care, he will continue to go back and forth from facility to hospital until such time that we are no longer able to overcome the sepsis. Patient is hospice eligible whenever family is ready to transition to "comfort measures only." . Code Status: No Code (No cardiac resuscitation, shock, ACLS or mech vent. ) Plan * Decision making: Patient is incapacitated and will not regain capacity. There is no designated health care surrogate. Daughter, Radha Foreman, is legal proxy under [place] statutes but can be hard to contact at times. * NO CODE - No cardiac resuscitation, shock, ACLS or mech vent, No Pressors. * Pain: Sources of pain are unclear as patient in non communicative, but would include prolonged bedbound status; tubes and lines; worsening contractures; wound; etc. Recommend at least scheduled acetaminophen (e.g. 650 mg q 8 hours ATC) as patient is probably uncomfortable and cannot communicate it. * Dyspnea: Probable another aspiration pneumonia. Hopefully, can avoid ICU and vent. Patient back on antibiotics. Culture + pseudomonas. * Malnutrition: Tolerating tube feeds but continues to have intermittent aspirations. Patient is cachectic despite ongoing nutrition. * Palliative care will continue to follow. . Attestation To help prompt me to consider important information that might be impacting today's encounter and assessment, information from prior notes written by myself or my colleagues may have been "brought forward" into today's note. My signature on this note, however, is an attestation that I personally performed the exam, history, and/or decision-making noted today, and, unless otherwise indicated, the interactions with patient, family, and staff as well as the review of records all occurred today. I also attest that the listed assessment and stated plan reflect my best clinical judgment today based on the combination of historical information, prior notes, and today's exam/ interactions. When time spent is documented, it refers only to time spent today by the signer, or if indicated, combined time spent today by collaborating physician/nurse practitioner. ALOK JONES Mar 21, 2016 17:14
--- NOTE | 2016-03-21 19:03 | HHI.IDPN ---
Subjective Subjective Remarks Overnight events reviewed with RT. Dyspneic was placed on BiPAP by pulm/ CXR with mucus plug. Recurrent aspirations. Increased thick yellow secretions. WBC normal. is 55 y/o CM with multiple medical problems.Chronic encephalopathy with underlying diagnosis of advanced dementia as well as advanced Parkinson's disease. Status post trach, Status post gastrostomy tube, sacral decubitus ulcer, h/o Recurrent aspiration tube feed related in past. Antibiotics Meropenem IV Levaquin oral Tobra neb Lines Peripheral IV with no e/o infection Past Medical History reviewed Allergies: Coded Allergies: *MDRO Multi-Drug Resistant Organism (Verified Adverse Reaction, Unknown, ESBL, carbapenem resistant Pseudomonas, 01/13/16) ESBL E. coli (urine) - 02/19/2015; ESBL K. pneumoniae (sputum-06/18/15, 08/03/15, 09/20/15,10/12/15, 11/27/15, 12/26/15, 01/09/16), (urine-08/03/15 & 11/27/15), MRSA PCR POSITIVE - 03/20/2015 MDR-Pseudomonas (sputum)- 08/18/15, 09/20/15, 10/2015 (Carbapenem resistant) Objective . Vital Signs Date Time Temp Pulse Resp B/P Pulse Ox O2 Delivery O2 Flow Rate FiO2 03/21/16 16:49 97 45 03/21/16 15:54 97.5 87 20 118/73 99 03/21/16 12:24 96.5 78 21 124/79 98 03/21/16 12:24 98 45 03/21/16 09:42 96 45 03/21/16 08:00 96.0 76 22 93/65 97 03/21/16 05:29 96 45 03/21/16 00:50 97 45 03/21/16 00:00 98.7 90 32 133/63 95 03/20/16 21:28 97 45 03/20/16 21:00 Bi-Pap 45 03/20/16 20:00 98.2 95 28 109/ 94 03/20/16 03/20/16 03/21/16 15:00 23:00 07:00 Intake Total 1860 ml Output Total 1050 ml 550 ml Balance 810 ml -550 ml IV Total 880 ml Tube Feeding 480 ml Other 500 ml Output Urine Total 1050 ml 550 ml # Bowel Movements 1 Imaging Chest X-Ray 03/04/16 0000 Signed Impressions: Service Date/Time: Friday, March 04, 2016 18:10 - CONCLUSION: No acute cardiopulmonary disease. Eugene Schmid MD Physical Exam GENERAL: No interaction, calm, looks comfortable SKIN: Cool and moist. No generalized rash. HEENT: Loop conjunctivae, no icterus, moist mucosa. NECK: Trach site looks ok. Supple RESPIRATORY: Coarse BS razia, with few rhonchi GASTROINTESTINAL: Abdomen soft, not distended. Bowel sounds normoactive. No guarding. PEG site looks okay. MUSCULOSKELETAL: No cyanosis No pedal edema. Contracted all 4 extremities. NEUROLOGICAL: Eyes open, Extremities contracted Peripheral IV line sites with no evidence of infection. ; Valdez in place, urine looks clear Assessment & Plan Remarks IMPRESSION New Sepsis sources: Tracheobronchitis and ESBL Kleb pneumo UTI MDR PSAE Pneumonia. ESBL MDR Kleb pneumo Cath associated UTI. Chronic respiratory failure on trach Chronic encephalopathy with underlying diagnosis of advanced dementia as well as advanced Parkinson's disease. Status post trach Status post gastrostomy tube with no evidence of infection. Stage II sacral decubitus ulcer present on admission. h/o Recurrent aspiration tube feed related in past. Heena Cath associated UTI Recommendations DC Meropenem IV DC Tobramycin nebs. Start Cefepime IV Start Zyvox oral Repeat CXR DC Tobramycin nebs. Sputum culture. 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 Suffering clearly appears deteriorating. I would be happy to be of assistance in discussions with patients family. Patients organisms in lung are of different strains some resistant and yet others very resistant. We are soon going to run out of antibiotics. Poor quality of life in general. Follow cultures Monitor progress Recommend once a month valdez change as for chronic patients. Trina Moss MD Mar 21, 2016 19:03
--- NOTE | 2016-03-21 20:05 | RADRPT ---
EXAM DATE/TIME: 03/21/2016 19:18 [facility] COMPARISON: CHEST SINGLE AP, March 18, 2016, 6:43. INDICATIONS : Evaluate pneumonia MEDICAL HISTORY : Diabetes mellitus type II. SURGICAL HISTORY : G-tube ENCOUNTER: Subsequent ACUITY: 7 - 11 months PAIN SCORE: Non-responsive. LOCATION: Bilateral chest FINDINGS: The patient has a tracheostomy tube in place. The heart size is normal. There is incre ased density in the left mid and lower lung and at the right lower lung. There is silhouetting at the left hemidiaphragm. CONCLUSION: Bibasilar areas of consolidation or atelectasis being worse on the left. These are un changed from the prior exam. Erlin Barajas MD on March 21, 2016 at 19:58 Board Certified Radiologist. This report was verified electronically.
--- NOTE | 2016-03-21 20:10 | HHI.PR ---
Subjective Remarks Awake and 0n a Bipap FIO2 45 % . has some labored breathing . No fever . On Antibiotics. O2 Sat 96. .CXr shows a LLL density Objective Vital Signs Date Time Temp Pulse Resp B/P Pulse Ox O2 Delivery O2 Flow Rate FiO2 03/21/16 16:49 97 45 03/21/16 15:54 97.5 87 20 118/73 99 03/21/16 12:24 96.5 78 21 124/79 98 03/21/16 12:24 98 45 03/21/16 10:50 96 Bi-Pap 45 03/21/16 09:42 96 45 03/21/16 08:00 96.0 76 22 93/65 97 03/21/16 05:29 96 45 03/21/16 00:50 97 45 03/21/16 00:00 98.7 90 32 133/63 95 03/20/16 21:28 97 45 03/20/16 21:00 Bi-Pap 45 I/O 03/20/16 03/20/16 03/20/16 03/21/16 03/21/16 03/21/16 07:00 15:00 23:00 07:00 15:00 23:00 Intake Total 1860 ml 1890 ml 905 ml Output Total 750 ml 1050 ml 550 ml 750 ml Balance -750 ml 810 ml -550 ml 1890 ml 155 ml IV Total 880 ml 880 ml 905 ml Tube Feeding 480 ml 530 ml Other 500 ml 480 ml Output Urine Total 750 ml 1050 ml 550 ml 750 ml # Bowel Movements 1 Objective Remarks This is a thin white male who is , awake with a trach tube in place. HEENT: Pupils are equal and reactive to light. CHEST:Decreased breath sounds,with Occ Bilateral wheeze.Occ Basal crackles. CARDIOVASCULAR: S1 and S2 is normal.No murmur. ABDOMEN: Soft, nondistended. BS +. He has a PEG and J tube in place. EXTREMITIES: Contractures.muscle wasting. NEURO: Awake and has weak extremities. Skin is dry .Lethargic Assessment and Plan Assessment and Plan IMPRESSION 1. Chronic Respiratory failure. 2. Sepsis, Aspiration. 3. Left basal Pneumonia, Resolved 4. Bi Basal pneumonia 5. Parkinson's disease 6. Dementia. 7. Severe Deconditioning. Plan : 1. Cont Bipap at 15/5 CM FIO2 45 % 2. Nebs Bid , duoneb. 3. Tube feeds at 40 CC 4. CBC,BMP 5. Levsin .125 mg tid prn. 6. Cont Trach toilet and lavage. 7. Antibiotics per ID. 8. Mucomyst Nebs 20 % , 2 CC qid. 1 Darren Kiser MD Mar 21, 2016 20:10
[2016-03-21] MEDS: CEFEPIME INJ 2,000 MG in SODIUM CHLORIDE 0.9% INJ 100 ML IV SCH (23:00)
[2016-03-21] MEDS: LINEZOLID 600 MG TAB PO SCH (23:01)
[2016-03-21] MEDS: ENOXAPARIN SODIUM 40 MG/0.4 ML SYRINGE SQ SCH (23:02)
[2016-03-22] VITALS (9 sets, daily range): BP systolic 84–101; BP diastolic 53–75; PULSE 22–92; RESP 21–38; TEMP 96.1–98.8; O2SAT 92–100
[2016-03-22] MEDS: RESP: ALBUTEROL 2.5 MG/3 ML NEB (PRN) NEB ×3 (03:39→23:55)
[2016-03-22] MEDS: RESP: ACETYLCYSTEINE 20% 30 ML NEB NEB SCH ×2 (03:39→09:52)
[2016-03-22] MEDS: CEFEPIME INJ 2,000 MG in SODIUM CHLORIDE 0.9% INJ 100 ML IV SCH ×3 (03:59→22:54)
[2016-03-22] MEDS: FREE WATER G-TUBE SCH ×4 (06:00→22:56)
[2016-03-22] MEDS: BETHANECHOL CHL 10 MG TAB PO SCH ×3 (06:17→22:55)
[2016-03-22] MEDS: DEXT 5%-NACL 0.45% 1000 ML INJ 1,000 ML IV SCH (09:27)
[2016-03-22] MEDS: LINEZOLID 600 MG TAB PO SCH ×2 (09:28→22:55)
[2016-03-22] MEDS: predniSONE 5 MG TAB PO SCH (09:28)
[2016-03-22] MEDS: LANSOPRAZOLE SOLUTAB 30 MG TAB NG SCH (09:28)
[2016-03-22] MEDS: PARoxetine HCL 20 MG TAB G-TUBE SCH (09:28)
[2016-03-22] MEDS: CARBIDOPA/LEVODOPA 25 MG/100 MG TAB GT SCH ×4 (09:28→22:55)
[2016-03-22] MEDS: GABAPENTIN 300 MG CAP G-TUBE SCH ×2 (09:28→22:55)
[2016-03-22] MEDS: LACTOBACILLUS ACIDOPHILUS TAB PO SCH ×3 (09:28→18:40)
[2016-03-22] MEDS: CHLORHEXIDINE GLUCONATE 0.12% 30 ML CUP MT SCH ×2 (09:29→22:55)
[2016-03-22] MEDS: SODIUM CHLORIDE 0.9% FLUSH 5 ML FLUSH IVF SCH ×2 (09:29→21:00)
[2016-03-22] MEDS: COLLAGENASE OINT 30 GM TUBE TOP SCH (09:29)
[2016-03-22] MEDS: ARTIFICIAL TEARS OPTH SOLN 15 ML BTL EACH EYE SCH ×3 (09:29→18:40)
--- NOTE | 2016-03-22 09:48 | HHI.PR ---
Subjective Remarks Follow-up Chronic encephalopathy with underlying diagnosis of advanced dementia as well as advanced Parkinson's disease.h/o Recurrent aspiration tube feed related in past. Now with Sepsis due to Tracheobronchitis and ESBL Kleb pneumo UTI 03/17/16-patient seen and examined, currently afebrile. Per nurse report patient's much more alert. Plan for replacement of GJ tube today by interventional radiology 03/18/16-patient seen and examined, and nonverbal. GJ tube was placed yesterday. 03/19/16-patient seen and examined. Secondary to episode of oxygen desaturation patient currently on BiPAP. Afebrile and nonverbal. 03/20/16-patient seen and examined, T-piece in place and monitoring for episode of desaturation. No other issues 03/21/16-patient seen and examined, currently on continuous BiPAP 03/22/16-patient seen and examined, on continuous BiPAP 2 days now. Afebrile and nonverbal Objective Vitals Vital Signs Date Time Temp Pulse Resp B/P Pulse Ox O2 Delivery O2 Flow Rate FiO2 03/22/16 08:12 96.5 22 22 100/57 92 03/22/16 06:15 Bi-Pap 45 03/22/16 04:00 96.1 74 24 84/53 92 03/22/16 03:42 93 BiPAP 45 03/22/16 03:42 93 45 03/22/16 00:00 98.8 90 38 98/75 95 03/21/16 21:03 94 45 03/21/16 20:00 96.6 89 36 117/117 95 03/21/16 16:49 97 45 03/21/16 15:54 97.5 87 20 118/73 99 03/21/16 12:24 96.5 78 21 124/79 98 03/21/16 12:24 98 45 03/21/16 10:50 96 Bi-Pap 45 I/O 03/21/16 03/21/16 03/21/16 03/22/16 03/22/16 03/22/16 07:00 15:00 23:00 07:00 15:00 23:00 Intake Total 1890 ml 905 ml Output Total 750 ml 1550 ml Balance 1890 ml 155 ml -1550 ml IV Total 880 ml 905 ml Tube Feeding 530 ml Other 480 ml Output Urine Total 750 ml 1550 ml Objective Remarks GENERAL: NAD and unable to communicate-trachea in place SKIN: Warm and dry. HEAD: Normocephalic. EYES: No scleral icterus. No injection or drainage. NECK: Supple, trachea midline. No JVD or lymphadenopathy. CARDIOVASCULAR: Regular rate and rhythm without murmurs, gallops, or rubs. RESPIRATORY: Tachypneic, positive use of accessory muscle use. GASTROINTESTINAL: Abdomen soft, non-tender, nondistended. JG tube in place MUSCULOSKELETAL: No cyanosis, or edema. BACK: Nontender without obvious deformity. No CVA tenderness. Procedures 07/26- PEG replacement 07/29- right pigtail catheter placement for new pneumothorax A/P Problem List: (1) Sepsis ICD Code: A41.9 Status: Acute (2) HCAP (healthcare-associated pneumonia) ICD Code: J18.9 Status: Acute (3) Fever ICD Code: R50.9 Status: Resolved (4) Sepsis due to urinary tract infection ICD Code: A41.9 Status: Resolved (5) Chronic respiratory failure ICD Code: J96.10 Status: Chronic (6) Parkinson disease ICD Code: G20 Status: Chronic (7) UTI (urinary tract infection) ICD Code: N39.0 Status: Resolved (8) Encephalopathy ICD Code: G93.40 Status: Resolved (9) Feeding tube obstruction ICD Code: T85.598A Status: Resolved (10) Conjunctivitis ICD Code: H10.9 Status: Resolved (11) Hypotension ICD Code: I95.9 Status: Resolved Assessment and Plan 55-year-old male with New Sepsis sources: Tracheobronchitis and ESBL Kleb pneumo UTI MDR PSAE tracheobronchitis. ESBL MDR Kleb pneumo Cath associated UTI. h/o Recurrent aspiration tube feed related in past. Heena Cath associated UTI -Continue Meropenem IV (ASP: ESBL Kleb pneumo UTI), Tobramycin nebs and Levaquin per infectious disease specialist. Monitor culture. Chronic respiratory failure Chronic tracheostomy. Currently on continuous BiPAP. T piece off. S/P recurrent right pneumothorax status post pigtail catheter removal. - Suction secretions and Levsin as needed -Continue prednisone 2.5 mg daily by pulmonology. Continue with Duo nebs 4 times a day and when necessary. -Appreciate input from palliative care medicine Metabolic Encephalopathy Parkinson's disease underlying. - Continue cognitive efforts , sinemet , s/p zyprexa Malnutrition/protein calorie - moderate Status post PEG. - Current Colace/senna for bowel regimen. - continue PPI.- Prevacid. - 02/03: J tube replacement due to dysfunction -IR replaced J G tube on 03/17/16 -Continue current tube feed Bilateral lower extremity Contractures Stage II DU. - Wound care team following. - Continue physical therapy. - turn q 2 hours s/p b/l conjunctivitis : Resolved. S/p abx eye drop GI prophylaxis: PPI. Stool softener PRN constipation. DVT PPx: Lovenox Continue current treatment Problem Qualifiers (1) Fever: Qualified Code: R50.9 - Fever, unspecified fever cause (2) Chronic respiratory failure: Qualified Code: J96.10 - Chronic respiratory failure, unspecified whether with hypoxia or hypercapnia (3) UTI (urinary tract infection): Qualified Code: N30.00 - Acute cystitis without hematuria (4) Conjunctivitis: Qualified Code: H10.9 - Conjunctivitis of left eye, unspecified conjunctivitis type Néstor Linn MD Mar 22, 2016 09:48
--- NOTE | 2016-03-22 11:04 | HHI.HCPN ---
Discussed case with Dr. Jose Moss regarding concerns for increased drug resistance and difficulty treating infections. I left message for daughter, Radha to provide medical update and discuss ID concerns. Will offer family meeting. Also discussed with Dr[facility] Pickard [facility], brother has history of psychosis and requires some level of care himself. I am not sure he will have any better understanding. If I do not hear from Radha I will also try to call patient's mother again to see if she has spoken with Radha. Last time I spoke with mother, she desires transition to comfort measures and Radha reportedly would not call her back. ALOK JONES Mar 22, 2016 11:04
--- NOTE | 2016-03-22 18:25 | HHI.PR ---
Subjective Remarks Awake and 0n a Bipap FIO2 40 % . Less labored breathing . No fever . On Antibiotics. O2 Sat 96. .C XR shows a LLL density Objective Vital Signs Date Time Temp Pulse Resp B/P Pulse Ox O2 Delivery O2 Flow Rate FiO2 03/22/16 16:54 97.0 92 22 87/53 100 03/22/16 16:22 96 45 03/22/16 12:02 97.4 86 22 101/57 98 03/22/16 09:51 96 45 03/22/16 08:12 96.5 22 22 100/57 92 03/22/16 06:15 Bi-Pap 45 03/22/16 04:00 96.1 74 24 84/53 92 03/22/16 03:42 93 BiPAP 45 03/22/16 03:42 93 45 03/22/16 00:00 98.8 90 38 98/75 95 03/21/16 21:03 94 45 03/21/16 20:00 96.6 89 36 117/117 95 I/O 03/21/16 03/21/16 03/21/16 03/22/16 03/22/16 03/22/16 07:00 15:00 23:00 07:00 15:00 23:00 Intake Total 1890 ml 905 ml Output Total 750 ml 1550 ml 1400 ml Balance 1890 ml 155 ml -1550 ml -1400 ml IV Total 880 ml 905 ml Tube Feeding 530 ml Other 480 ml Output Urine Total 750 ml 1550 ml 1400 ml # Bowel Movements 1 Objective Remarks This is a thin white male who is , awake with a trach tube in place. HEENT: Pupils are equal and reactive to light. CHEST:Decreased breath sounds,with Fine Basal crackles. CARDIOVASCULAR: S1 and S2 is normal.No murmur. ABDOMEN: Soft, nondistended. BS +. He has a PEG and J tube in place. EXTREMITIES: Contractures.muscle wasting. NEURO: Awake and has weak extremities. Skin is dry .Lethargic Assessment and Plan Assessment and Plan IMPRESSION 1. Chronic Respiratory failure. 2. Sepsis, Aspiration. 3. Left basal Pneumonia, Resolved 4. Bi Basal pneumonia 5. Parkinson's disease 6. Dementia. 7. Severe Deconditioning. Plan : 1. Cont Bipap at 15/5 CM FIO2 40 % 2. Nebs Bid , duoneb. 3. Tube feeds at 45 CC 4. CXR in am. 5. Levsin .125 mg tid prn. 6. Cont Trach toilet and lavage. 7. Antibiotics per ID. 8. Mucomyst Nebs 20 % , 2 CC BID 1 Darren Kiser MD Mar 22, 2016 18:25
[2016-03-22] MEDS: ENOXAPARIN SODIUM 40 MG/0.4 ML SYRINGE SQ SCH (22:56)
[2016-03-22] MEDS: RESP: ACETYLCYSTEINE 10% 30 ML NEB NEB SCH (23:55)
[2016-03-23] VITALS (11 sets, daily range): BP systolic 82–100; BP diastolic 45–71; PULSE 66–93; RESP 20–24; TEMP 96.2–99.5; O2SAT 92–100
[2016-03-23] MEDS: DEXT 5%-NACL 0.45% 1000 ML INJ 1,000 ML IV SCH ×2 (03:12→16:55)
[2016-03-23] MEDS: CEFEPIME INJ 2,000 MG in SODIUM CHLORIDE 0.9% INJ 100 ML IV SCH ×3 (04:53→23:19)
[2016-03-23] MEDS: BETHANECHOL CHL 10 MG TAB PO SCH ×3 (06:00→23:18)
[2016-03-23] MEDS: FREE WATER G-TUBE SCH ×4 (06:00→23:18)
[2016-03-23] MEDS: RESP: ALBUTEROL 2.5 MG/3 ML NEB (PRN) NEB ×2 (09:14→16:18)
[2016-03-23] MEDS: RESP: ACETYLCYSTEINE 10% 30 ML NEB NEB SCH ×2 (09:15→16:18)
[2016-03-23] MEDS: CHLORHEXIDINE GLUCONATE 0.12% 30 ML CUP MT SCH ×2 (09:58→23:17)
[2016-03-23] MEDS: ARTIFICIAL TEARS OPTH SOLN 15 ML BTL EACH EYE SCH ×3 (09:59→17:44)
[2016-03-23] MEDS: predniSONE 5 MG TAB PO SCH (09:59)
[2016-03-23] MEDS: PARoxetine HCL 20 MG TAB G-TUBE SCH (09:59)
[2016-03-23] MEDS: CARBIDOPA/LEVODOPA 25 MG/100 MG TAB GT SCH ×4 (09:59→23:18)
[2016-03-23] MEDS: LACTOBACILLUS ACIDOPHILUS TAB PO SCH ×3 (09:59→16:54)
[2016-03-23] MEDS: LANSOPRAZOLE SOLUTAB 30 MG TAB NG SCH (09:59)
[2016-03-23] MEDS: GABAPENTIN 300 MG CAP G-TUBE SCH ×2 (09:59→23:18)
[2016-03-23] MEDS: SODIUM CHLORIDE 0.9% FLUSH 5 ML FLUSH IVF SCH ×2 (09:59→21:00)
[2016-03-23] MEDS: LINEZOLID 600 MG TAB PO SCH ×2 (09:59→23:18)
[2016-03-23] MEDS: COLLAGENASE OINT 30 GM TUBE TOP SCH (10:00)
--- NOTE | 2016-03-23 10:59 | HHI.PR ---
Subjective Remarks Follow-up Chronic encephalopathy with underlying diagnosis of advanced dementia as well as advanced Parkinson's disease.h/o Recurrent aspiration tube feed related in past. Now with Sepsis due to Tracheobronchitis and ESBL Kleb pneumo UTI 03/17/16-patient seen and examined, currently afebrile. Per nurse report patient's much more alert. Plan for replacement of GJ tube today by interventional radiology 03/18/16-patient seen and examined, and nonverbal. GJ tube was placed yesterday. 03/19/16-patient seen and examined. Secondary to episode of oxygen desaturation patient currently on BiPAP. Afebrile and nonverbal. 03/20/16-patient seen and examined, T-piece in place and monitoring for episode of desaturation. No other issues 03/21/16-patient seen and examined, currently on continuous BiPAP 03/22/16-patient seen and examined, on continuous BiPAP 2 days now. Afebrile and nonverbal 03/23/16-patient seen and examined, still on continuous BiPAP. Afebrile however poor prognosis Objective Vitals Vital Signs Date Time Temp Pulse Resp B/P Pulse Ox O2 Delivery O2 Flow Rate FiO2 03/23/16 09:15 98 T-piece 45 03/23/16 09:15 98 45 03/23/16 09:04 96.2 74 22 89/64 96 03/23/16 04:50 94 45 03/23/16 04:00 97.2 66 21 82/48 100 03/23/16 00:45 Bi-Pap 45 03/23/16 00:04 95 BiPAP 45 03/23/16 00:04 96 45 03/23/16 00:00 97.5 93 21 82/45 94 03/22/16 20:00 96.9 83 21 97/60 96 03/22/16 16:54 97.0 92 22 87/53 100 03/22/16 16:22 96 45 03/22/16 12:02 97.4 86 22 101/57 98 I/O 03/22/16 03/22/16 03/22/16 03/23/16 03/23/16 03/23/16 07:00 15:00 23:00 07:00 15:00 23:00 Output Total 1550 ml 1400 ml 1100 ml 1400 ml Balance -1550 ml -1400 ml -1100 ml -1400 ml Output Urine Total 1550 ml 1400 ml 1100 ml 1400 ml # Bowel Movements 1 Objective Remarks GENERAL: NAD and unable to communicate-trachea in place SKIN: Warm and dry. HEAD: Normocephalic. EYES: No scleral icterus. No injection or drainage. NECK: Supple, trachea midline. No JVD or lymphadenopathy. CARDIOVASCULAR: Regular rate and rhythm without murmurs, gallops, or rubs. RESPIRATORY: Tachypneic, positive use of accessory muscle use. GASTROINTESTINAL: Abdomen soft, non-tender, nondistended. JG tube in place MUSCULOSKELETAL: No cyanosis, or edema. BACK: Nontender without obvious deformity. No CVA tenderness. Procedures 07/26- PEG replacement 07/29- right pigtail catheter placement for new pneumothorax A/P Problem List: (1) Sepsis ICD Code: A41.9 Status: Acute (2) HCAP (healthcare-associated pneumonia) ICD Code: J18.9 Status: Acute (3) Fever ICD Code: R50.9 Status: Resolved (4) Sepsis due to urinary tract infection ICD Code: A41.9 Status: Resolved (5) Chronic respiratory failure ICD Code: J96.10 Status: Chronic (6) Parkinson disease ICD Code: G20 Status: Chronic (7) UTI (urinary tract infection) ICD Code: N39.0 Status: Resolved (8) Encephalopathy ICD Code: G93.40 Status: Resolved (9) Feeding tube obstruction ICD Code: T85.598A Status: Resolved (10) Conjunctivitis ICD Code: H10.9 Status: Resolved (11) Hypotension ICD Code: I95.9 Status: Resolved Assessment and Plan 55-year-old male with New Sepsis sources: Tracheobronchitis and ESBL Kleb pneumo UTI MDR PSAE tracheobronchitis. ESBL MDR Kleb pneumo Cath associated UTI. h/o Recurrent aspiration tube feed related in past. Heena Cath associated UTI -Continue cefepime and Zyvox IV (ASP: ESBL Kleb pneumo UTI), per infectious disease specialist. Monitor culture. Chronic respiratory failure Chronic tracheostomy. Currently on continuous BiPAP. T piece off. S/P recurrent right pneumothorax status post pigtail catheter removal. - Suction secretions and Levsin as needed -Continue prednisone 2.5 mg daily by pulmonology. Continue with Duo nebs 4 times a day and when necessary. -Appreciate input from palliative care medicine Metabolic Encephalopathy Parkinson's disease underlying. - Continue cognitive efforts , sinemet , s/p zyprexa Malnutrition/protein calorie - moderate Status post PEG. - Current Colace/senna for bowel regimen. - continue PPI.- Prevacid. - 02/03: J tube replacement due to dysfunction -IR replaced J G tube on 03/17/16 -Continue current tube feed Bilateral lower extremity Contractures Stage II DU. - Wound care team following. - Continue physical therapy. - turn q 2 hours s/p b/l conjunctivitis : Resolved. S/p abx eye drop GI prophylaxis: PPI. Stool softener PRN constipation. DVT PPx: Lovenox Continue current treatment Problem Qualifiers (1) Fever: Qualified Code: R50.9 - Fever, unspecified fever cause (2) Chronic respiratory failure: Qualified Code: J96.10 - Chronic respiratory failure, unspecified whether with hypoxia or hypercapnia (3) UTI (urinary tract infection): Qualified Code: N30.00 - Acute cystitis without hematuria (4) Conjunctivitis: Qualified Code: H10.9 - Conjunctivitis of left eye, unspecified conjunctivitis type Néstor Linn MD Mar 23, 2016 10:59
[2016-03-23] MEDS: HYOSCYAMINE SOLN 0.125 MG/ML 15 ML BTL PO PRN (12:49)
--- NOTE | 2016-03-23 19:35 | HHI.PR ---
Subjective Remarks Awake and 0n a Bipap FIO2 40 % . No labored breathing . O2 Sat 96. .C XR shows a LLL density Objective Vital Signs Date Time Temp Pulse Resp B/P Pulse Ox O2 Delivery O2 Flow Rate FiO2 03/23/16 17:26 99.5 90 22 98/71 96 03/23/16 16:22 92 45 03/23/16 13:08 98.5 93 20 100/55 98 03/23/16 12:20 94 45 03/23/16 09:15 98 T-piece 45 03/23/16 09:15 98 45 03/23/16 09:04 96.2 74 22 89/64 96 03/23/16 07:15 96 Bi-Pap 45 03/23/16 04:50 94 45 03/23/16 04:00 97.2 66 21 82/48 100 03/23/16 00:45 Bi-Pap 45 03/23/16 00:04 95 BiPAP 45 03/23/16 00:04 96 45 03/23/16 00:00 97.5 93 21 82/45 94 03/22/16 20:00 96.9 83 21 97/60 96 I/O 03/22/16 03/22/16 03/22/16 03/23/16 03/23/16 03/23/16 07:00 15:00 23:00 07:00 15:00 23:00 Intake Total 4968 ml Output Total 1550 ml 1400 ml 1100 ml 1400 ml 1000 ml 1300 ml Balance -1550 ml -1400 ml -1100 ml -1400 ml -1000 ml 3668 ml IV Total 3478 ml Tube Feeding 990 ml Tube Irrigant 500 ml Output Urine Total 1550 ml 1400 ml 1100 ml 1400 ml 1000 ml 1300 ml # Bowel Movements 1 Objective Remarks This is a thin white male who is , awake with a trach tube in place. HEENT: Pupils are equal and reactive to light. CHEST:Decreased breath sounds,with occ Basal crackles. CARDIOVASCULAR: S1 and S2 is normal.No murmur. ABDOMEN: Soft, nondistended. BS +. He has a PEG and J tube in place. EXTREMITIES: Contractures.muscle wasting. NEURO: Awake and has weak extremities. Skin is dry .Lethargic Assessment and Plan Assessment and Plan IMPRESSION 1. Chronic Respiratory failure. 2. Sepsis, Aspiration. 3. Left basal Pneumonia, Resolved 4. Bi Basal pneumonia 5. Parkinson's disease 6. Dementia. 7. Severe Deconditioning. Plan : 1. Cont Bipap at 15/5 CM FIO2 45 % 2. Nebs Bid , duoneb. 3. Tube feeds at 45 CC 4. CBC,BMP. 5. Levsin .125 mg tid prn. 6. Cont Trach toilet and lavage. 7. Antibiotics per ID. 8. Mucomyst Nebs 20 % , 2 CC BID X 5 days. 1 Darren Kiser MD Mar 23, 2016 19:34
[2016-03-23] MEDS: ENOXAPARIN SODIUM 40 MG/0.4 ML SYRINGE SQ SCH (23:18)
[2016-03-24] VITALS (11 sets, daily range): BP systolic 92–112; BP diastolic 60–80; PULSE 72–101; RESP 18–24; TEMP 97.2–99.5; O2SAT 94–100
[2016-03-24] MEDS: RESP: ACETYLCYSTEINE 10% 30 ML NEB NEB SCH ×2 (01:27→16:09)
[2016-03-24] MEDS: RESP: ALBUTEROL 2.5 MG/3 ML NEB (PRN) NEB ×3 (01:27→16:09)
[2016-03-24] MEDS: CEFEPIME INJ 2,000 MG in SODIUM CHLORIDE 0.9% INJ 100 ML IV SCH ×3 (04:40→21:57)
[2016-03-24] MEDS: BETHANECHOL CHL 10 MG TAB PO SCH ×3 (05:18→21:57)
[2016-03-24] MEDS: FREE WATER G-TUBE SCH ×3 (05:18→18:00)
[2016-03-24] MEDS: CHLORHEXIDINE GLUCONATE 0.12% 30 ML CUP MT SCH ×2 (08:00→21:58)
[2016-03-24] MEDS: DEXT 5%-NACL 0.45% 1000 ML INJ 1,000 ML IV SCH (10:00)
--- NOTE | 2016-03-24 10:00 | RADRPT ---
EXAM DATE/TIME: 03/24/2016 09:30 [place] COMPARISON: CHEST SINGLE AP, March 10, 2016, 5:48. CHEST SINGLE AP, March 14, 2016, 13:11. CHEST SINGLE A P, March 21, 2016, 19:18. INDICATIONS : Pneumonia MEDICAL HISTORY : Diabetes mellitus type II. respiratory failure SURGICAL HISTORY : g tube ENCOUNTER: Initial ACUITY: 2 months PAIN SCORE: Non-responsive. LOCATION: Bilateral chest FINDINGS: The exam is somewhat limited due to positioning. There is a tracheostomy tube in good position. Thereafter chronic perihilar interstitial changes thes e are stable compared to previous dated 03/21/16. Overall, appearance of the chest is relatively uncha nged dating back to 03/10/16 as well. CONCLUSION: 1. Tracheostomy in satisfactory position. 2. Chronic interstitial changes stable compared to previous exams. Blaine Jackson MD on March 24, 2016 at 9:57 Board Certified Radiologist. This report was verified electronically.
[2016-03-24] MEDS: PARoxetine HCL 20 MG TAB G-TUBE SCH (10:20)
[2016-03-24] MEDS: ARTIFICIAL TEARS OPTH SOLN 15 ML BTL EACH EYE SCH ×3 (10:20→17:59)
[2016-03-24] MEDS: predniSONE 5 MG TAB PO SCH (10:20)
[2016-03-24] MEDS: LINEZOLID 600 MG TAB PO SCH ×2 (10:21→21:57)
[2016-03-24] MEDS: LACTOBACILLUS ACIDOPHILUS TAB PO SCH ×3 (10:21→18:00)
[2016-03-24] MEDS: GABAPENTIN 300 MG CAP G-TUBE SCH ×2 (10:22→21:57)
[2016-03-24] MEDS: CARBIDOPA/LEVODOPA 25 MG/100 MG TAB GT SCH ×4 (10:22→21:57)
[2016-03-24] MEDS: SODIUM CHLORIDE 0.9% FLUSH 5 ML FLUSH IVF SCH ×2 (10:22→21:58)
[2016-03-24] MEDS: LANSOPRAZOLE SOLUTAB 30 MG TAB NG SCH (10:22)
[2016-03-24] MEDS: COLLAGENASE OINT 30 GM TUBE TOP SCH (10:26)
--- NOTE | 2016-03-24 12:38 | HHI.PR ---
Subjective Remarks Follow-up Chronic encephalopathy with underlying diagnosis of advanced dementia as well as advanced Parkinson's disease.h/o Recurrent aspiration tube feed related in past. Now with Sepsis due to Tracheobronchitis and ESBL Kleb pneumo UTI 03/17/16-patient seen and examined, currently afebrile. Per nurse report patient's much more alert. Plan for replacement of GJ tube today by interventional radiology 03/18/16-patient seen and examined, and nonverbal. GJ tube was placed yesterday. 03/19/16-patient seen and examined. Secondary to episode of oxygen desaturation patient currently on BiPAP. Afebrile and nonverbal. 03/20/16-patient seen and examined, T-piece in place and monitoring for episode of desaturation. No other issues 03/21/16-patient seen and examined, currently on continuous BiPAP 03/22/16-patient seen and examined, on continuous BiPAP 2 days now. Afebrile and nonverbal 03/23/16-patient seen and examined, still on continuous BiPAP. Afebrile however poor prognosis 03/24/16-patient seen and examined, stable on continuous BiPAP afebrile and no other issues. Objective Vitals Vital Signs Date Time Temp Pulse Resp B/P Pulse Ox O2 Delivery O2 Flow Rate FiO2 03/24/16 09:06 94 T-piece 45 03/24/16 08:11 97.6 74 18 98/64 98 03/24/16 07:15 98 Bi-Pap 45 03/24/16 05:17 97 45 03/24/16 04:00 98.5 72 20 92/60 98 03/24/16 01:27 98 45 03/24/16 00:00 99.5 89 24 112/80 98 03/23/16 23:05 Bi-Pap 45 03/23/16 20:00 98.9 84 24 99/70 97 03/23/16 17:26 99.5 90 22 98/71 96 03/23/16 16:22 92 45 03/23/16 13:08 98.5 93 20 100/55 98 I/O 03/23/16 03/23/16 03/23/16 03/24/16 03/24/16 03/24/16 07:00 15:00 23:00 07:00 15:00 23:00 Intake Total 4968 ml Output Total 1400 ml 1000 ml 1700 ml 1900 ml Balance -1400 ml -1000 ml 3268 ml -1900 ml IV Total 3478 ml Tube Feeding 990 ml Tube Irrigant 500 ml Output Urine Total 1400 ml 1000 ml 1700 ml 1900 ml # Bowel Movements 1 0 Objective Remarks GENERAL: NAD and unable to communicate-trachea in place SKIN: Warm and dry. HEAD: Normocephalic. EYES: No scleral icterus. No injection or drainage. NECK: Supple, trachea midline. No JVD or lymphadenopathy. CARDIOVASCULAR: Regular rate and rhythm without murmurs, gallops, or rubs. RESPIRATORY: Tachypneic, positive use of accessory muscle use. GASTROINTESTINAL: Abdomen soft, non-tender, nondistended. JG tube in place MUSCULOSKELETAL: No cyanosis, or edema. BACK: Nontender without obvious deformity. No CVA tenderness. Procedures 07/26- PEG replacement 07/29- right pigtail catheter placement for new pneumothorax A/P Problem List: (1) Sepsis ICD Code: A41.9 Status: Acute (2) HCAP (healthcare-associated pneumonia) ICD Code: J18.9 Status: Acute (3) Fever ICD Code: R50.9 Status: Resolved (4) Sepsis due to urinary tract infection ICD Code: A41.9 Status: Resolved (5) Chronic respiratory failure ICD Code: J96.10 Status: Chronic (6) Parkinson disease ICD Code: G20 Status: Chronic (7) UTI (urinary tract infection) ICD Code: N39.0 Status: Resolved (8) Encephalopathy ICD Code: G93.40 Status: Resolved (9) Feeding tube obstruction ICD Code: T85.598A Status: Resolved (10) Conjunctivitis ICD Code: H10.9 Status: Resolved (11) Hypotension ICD Code: I95.9 Status: Resolved Assessment and Plan 55-year-old male with New Sepsis sources: Tracheobronchitis and ESBL Kleb pneumo UTI MDR PSAE tracheobronchitis. ESBL MDR Kleb pneumo Cath associated UTI. h/o Recurrent aspiration tube feed related in past. Heena Cath associated UTI -Continue cefepime and Zyvox IV (ASP: ESBL Kleb pneumo UTI), per infectious disease specialist. Monitor culture. Chronic respiratory failure Chronic tracheostomy. Currently on continuous BiPAP. T piece off. S/P recurrent right pneumothorax status post pigtail catheter removal. - Suction secretions and Levsin as needed -Continue prednisone 2.5 mg daily by pulmonology. Continue with Duo nebs 4 times a day and when necessary. -Appreciate input from palliative care medicine Metabolic Encephalopathy Parkinson's disease underlying. - Continue cognitive efforts , sinemet , s/p zyprexa Malnutrition/protein calorie - moderate Status post PEG. - Current Colace/senna for bowel regimen. - continue PPI.- Prevacid. - 02/03: J tube replacement due to dysfunction -IR replaced J G tube on 03/17/16 -Continue current tube feed Bilateral lower extremity Contractures Stage II DU. - Wound care team following. - Continue physical therapy. - turn q 2 hours s/p b/l conjunctivitis : Resolved. S/p abx eye drop GI prophylaxis: PPI. Stool softener PRN constipation. DVT PPx: Lovenox Continue current treatment as of 03/24/16 Problem Qualifiers (1) Fever: Qualified Code: R50.9 - Fever, unspecified fever cause (2) Chronic respiratory failure: Qualified Code: J96.10 - Chronic respiratory failure, unspecified whether with hypoxia or hypercapnia (3) UTI (urinary tract infection): Qualified Code: N30.00 - Acute cystitis without hematuria (4) Conjunctivitis: Qualified Code: H10.9 - Conjunctivitis of left eye, unspecified conjunctivitis type Néstor Linn MD Mar 24, 2016 12:38
--- NOTE | 2016-03-24 20:16 | HHI.PR ---
Subjective Remarks Awake and 0n a Bipap FIO2 40 % . Has shallow breathing . On Antibiotics per ID O2 Sat 96. .C XR shows chronic changes. Objective Vital Signs Date Time Temp Pulse Resp B/P Pulse Ox O2 Delivery O2 Flow Rate FiO2 03/24/16 16:11 96 45 03/24/16 16:00 97.2 87 19 109/69 100 03/24/16 12:58 97.4 97 20 109/77 96 03/24/16 09:06 94 T-piece 45 03/24/16 08:11 97.6 74 18 98/64 98 03/24/16 07:15 98 Bi-Pap 45 03/24/16 05:17 97 45 03/24/16 04:00 98.5 72 20 92/60 98 03/24/16 01:27 98 45 03/24/16 00:00 99.5 89 24 112/80 98 03/23/16 23:05 Bi-Pap 45 I/O 03/23/16 03/23/16 03/23/16 03/24/16 03/24/16 03/24/16 07:00 15:00 23:00 07:00 15:00 23:00 Intake Total 4968 ml 1493 ml Output Total 1400 ml 1000 ml 1700 ml 1900 ml 1200 ml Balance -1400 ml -1000 ml 3268 ml -1900 ml 293 ml IV Total 3478 ml 609 ml Tube Feeding 990 ml 884 ml Tube Irrigant 500 ml Output Urine Total 1400 ml 1000 ml 1700 ml 1900 ml 1200 ml # Bowel Movements 1 0 0 Objective Remarks This is a thin white male who is , awake with a trach tube in place. HEENT: Pupils are equal and reactive to light. CHEST:Decreased breath sounds,with Bi Basal crackles.Occ wheezes. CARDIOVASCULAR: S1 and S2 is normal.No murmur. ABDOMEN: Soft, nondistended. BS +. He has a PEG and J tube in place. EXTREMITIES: Contractures.muscle wasting. NEURO: Awake and has weak extremities. Skin is dry .Lethargic Assessment and Plan Assessment and Plan IMPRESSION 1. Chronic Respiratory failure. 2. Sepsis, Aspiration. 3. Left basal Pneumonia, Resolved 4. Bi Basal pneumonia 5. Parkinson's disease 6. Dementia. 7. Severe Deconditioning. Plan : 1. Wean Bipap to 15/5 CM FIO2 40 % 2. Nebs Bid , duoneb. 3. Tube feeds at 45 CC 4. Add Solumedrol 40 mg bid. 5. Levsin .125 mg tid prn. 6. Cont Trach toilet and lavage. 7. Antibiotics per ID. 8. Mucomyst Nebs 20 % , 2 CC BID X 3 days. 1 Darren Kiser MD Mar 24, 2016 20:15
[2016-03-24] MEDS: ENOXAPARIN SODIUM 40 MG/0.4 ML SYRINGE SQ SCH (21:57)
[2016-03-24] MEDS: methylPREDNISolone SOD SUCC 40 MG/1 ML VIAL IV SCH (21:58)
[2016-03-25] VITALS (10 sets, daily range): BP systolic 110–126; BP diastolic 64–75; PULSE 80–110; RESP 23–31; TEMP 97.5–99.8; O2SAT 96–99
[2016-03-25] MEDS: RESP: ALBUTEROL 2.5 MG/3 ML NEB (PRN) NEB ×4 (01:17→16:33)
[2016-03-25] MEDS: RESP: ACETYLCYSTEINE 10% 30 ML NEB NEB SCH ×3 (01:17→16:33)
[2016-03-25] MEDS: CEFEPIME INJ 2,000 MG in SODIUM CHLORIDE 0.9% INJ 100 ML IV SCH ×3 (03:21→23:04)
[2016-03-25] MEDS: DEXT 5%-NACL 0.45% 1000 ML INJ 1,000 ML IV SCH ×2 (03:21→16:48)
[2016-03-25] MEDS: FREE WATER G-TUBE SCH ×5 (05:48→23:08)
[2016-03-25] MEDS: BETHANECHOL CHL 10 MG TAB PO SCH ×3 (05:48→20:23)
[2016-03-25] MEDS: COLLAGENASE OINT 30 GM TUBE TOP SCH (09:00)
[2016-03-25] MEDS: ARTIFICIAL TEARS OPTH SOLN 15 ML BTL EACH EYE SCH ×3 (09:21→18:00)
[2016-03-25] MEDS: CHLORHEXIDINE GLUCONATE 0.12% 30 ML CUP MT SCH ×2 (09:21→20:25)
[2016-03-25] MEDS: methylPREDNISolone SOD SUCC 40 MG/1 ML VIAL IV SCH ×2 (09:22→20:24)
[2016-03-25] MEDS: LANSOPRAZOLE SOLUTAB 30 MG TAB NG SCH (09:22)
[2016-03-25] MEDS: SODIUM CHLORIDE 0.9% FLUSH 5 ML FLUSH IVF SCH ×2 (09:22→20:25)
[2016-03-25] MEDS: PARoxetine HCL 20 MG TAB G-TUBE SCH (09:23)
[2016-03-25] MEDS: CARBIDOPA/LEVODOPA 25 MG/100 MG TAB GT SCH ×4 (09:23→20:24)
[2016-03-25] MEDS: GABAPENTIN 300 MG CAP G-TUBE SCH ×2 (09:23→20:23)
[2016-03-25] MEDS: LACTOBACILLUS ACIDOPHILUS TAB PO SCH ×3 (09:23→19:02)
[2016-03-25] MEDS: LINEZOLID 600 MG TAB PO SCH ×2 (09:23→20:24)
[2016-03-25] MEDS: predniSONE 5 MG TAB PO SCH (09:27)
--- NOTE | 2016-03-25 12:02 | HHI.PR ---
Subjective Remarks Follow-up Chronic encephalopathy with underlying diagnosis of advanced dementia as well as advanced Parkinson's disease.h/o Recurrent aspiration tube feed related in past. Now with Sepsis due to Tracheobronchitis and ESBL Kleb pneumo UTI 03/17/16-patient seen and examined, currently afebrile. Per nurse report patient's much more alert. Plan for replacement of GJ tube today by interventional radiology 03/18/16-patient seen and examined, and nonverbal. GJ tube was placed yesterday. 03/19/16-patient seen and examined. Secondary to episode of oxygen desaturation patient currently on BiPAP. Afebrile and nonverbal. 03/20/16-patient seen and examined, T-piece in place and monitoring for episode of desaturation. No other issues 03/21/16-patient seen and examined, currently on continuous BiPAP 03/22/16-patient seen and examined, on continuous BiPAP 2 days now. Afebrile and nonverbal 03/23/16-patient seen and examined, still on continuous BiPAP. Afebrile however poor prognosis 03/24/16-patient seen and examined, stable on continuous BiPAP afebrile and no other issues. 03/25/16-patient seen and examined, no change and still on BiPAP. Currently afebrile. Solu-Medrol 40 mg twice a day was added yesterday. Objective Vitals Vital Signs Date Time Temp Pulse Resp B/P Pulse Ox O2 Delivery O2 Flow Rate FiO2 03/25/16 08:27 99.0 80 31 114/70 97 03/25/16 08:27 98 40 03/25/16 07:15 98 Bi-Pap 40 03/25/16 06:00 99 40 03/25/16 05:45 98.0 108 23 115/75 96 03/25/16 01:17 98 40 03/25/16 01:00 97.9 105 23 110/74 97 03/24/16 22:45 97.5 101 24 109/70 96 03/24/16 21:40 95 40 03/24/16 20:00 Bi-Pap 40 03/24/16 16:11 96 45 03/24/16 16:00 97.2 87 19 109/69 100 03/24/16 12:58 97.4 97 20 109/77 96 I/O 03/24/16 03/24/16 03/24/16 03/25/16 03/25/16 03/25/16 07:00 15:00 23:00 07:00 15:00 23:00 Intake Total 1493 ml 0 ml 1760 ml Output Total 1900 ml 1200 ml 2000 ml 900 ml 550 ml Balance -1900 ml 293 ml -2000 ml 860 ml -550 ml Intake Oral 0 ml 0 ml IV Total 609 ml 780 ml Tube Feeding 884 ml 480 ml Other 500 ml Output Urine Total 1900 ml 1200 ml 2000 ml 900 ml 550 ml Tube Feeding Residual Discard 0 ml # Bowel Movements 0 0 3 4 Objective Remarks GENERAL: NAD and unable to communicate-trachea in place SKIN: Warm and dry. HEAD: Normocephalic. EYES: No scleral icterus. No injection or drainage. NECK: Supple, trachea midline. No JVD or lymphadenopathy. CARDIOVASCULAR: Regular rate and rhythm without murmurs, gallops, or rubs. RESPIRATORY: Tachypneic, positive use of accessory muscle use. GASTROINTESTINAL: Abdomen soft, non-tender, nondistended. JG tube in place MUSCULOSKELETAL: No cyanosis, or edema. BACK: Nontender without obvious deformity. No CVA tenderness. Procedures 07/26- PEG replacement 07/29- right pigtail catheter placement for new pneumothorax A/P Problem List: (1) Sepsis ICD Code: A41.9 Status: Acute (2) HCAP (healthcare-associated pneumonia) ICD Code: J18.9 Status: Acute (3) Fever ICD Code: R50.9 Status: Resolved (4) Sepsis due to urinary tract infection ICD Code: A41.9 Status: Resolved (5) Chronic respiratory failure ICD Code: J96.10 Status: Chronic (6) Parkinson disease ICD Code: G20 Status: Chronic (7) UTI (urinary tract infection) ICD Code: N39.0 Status: Resolved (8) Encephalopathy ICD Code: G93.40 Status: Resolved (9) Feeding tube obstruction ICD Code: T85.598A Status: Resolved (10) Conjunctivitis ICD Code: H10.9 Status: Resolved (11) Hypotension ICD Code: I95.9 Status: Resolved Assessment and Plan 55-year-old male with New Sepsis sources: Tracheobronchitis and ESBL Kleb pneumo UTI MDR PSAE tracheobronchitis. ESBL MDR Kleb pneumo Cath associated UTI. h/o Recurrent aspiration tube feed related in past. Heena Cath associated UTI -Continue cefepime and Zyvox IV (ASP: ESBL Kleb pneumo UTI), per infectious disease specialist. Monitor culture. Chronic respiratory failure Chronic tracheostomy. Currently on continuous BiPAP. T piece off. S/P recurrent right pneumothorax status post pigtail catheter removal. - Suction secretions and Levsin as needed -Continue Solu-Medrol 40 mg IV twice a day, Mucomyst Nebs 20 % , 2 CC BID X 3 days by pulmonology. Continue with Duo nebs 4 times a day and when necessary. -Appreciate input from palliative care medicine Metabolic Encephalopathy Parkinson's disease underlying. - Continue cognitive efforts , sinemet , s/p zyprexa Malnutrition/protein calorie - moderate Status post PEG. - Current Colace/senna for bowel regimen. - continue PPI.- Prevacid. - 02/03: J tube replacement due to dysfunction -IR replaced J G tube on 03/17/16 -Continue current tube feed Bilateral lower extremity Contractures Stage II DU. - Wound care team following. - Continue physical therapy. - turn q 2 hours s/p b/l conjunctivitis : Resolved. S/p abx eye drop GI prophylaxis: PPI. Stool softener PRN constipation. DVT PPx: Lovenox Continue current treatment as of 03/25/16 Problem Qualifiers (1) Fever: Qualified Code: R50.9 - Fever, unspecified fever cause (2) Chronic respiratory failure: Qualified Code: J96.10 - Chronic respiratory failure, unspecified whether with hypoxia or hypercapnia (3) UTI (urinary tract infection): Qualified Code: N30.00 - Acute cystitis without hematuria (4) Conjunctivitis: Qualified Code: H10.9 - Conjunctivitis of left eye, unspecified conjunctivitis type Néstor Linn MD Mar 25, 2016 12:02
[2016-03-25] MEDS: MORPHINE SULFATE 4 MG/ML INJ IV PUSH PRN (20:19)
[2016-03-25] MEDS: ENOXAPARIN SODIUM 40 MG/0.4 ML SYRINGE SQ SCH (20:23)
[2016-03-25] MEDS: ACETAMINOPHEN 650 MG/20.3 ML UDC TUBE PRN (23:08)
[2016-03-26] VITALS (9 sets, daily range): BP systolic 103–122; BP diastolic 56–78; PULSE 80–100; RESP 20–24; TEMP 96.5–99.2; O2SAT 96–99
[2016-03-26] MEDS: RESP: ALBUTEROL 2.5 MG/3 ML NEB (PRN) NEB ×3 (00:21→16:18)
[2016-03-26] MEDS: RESP: ACETYLCYSTEINE 10% 30 ML NEB NEB SCH ×3 (00:21→16:18)
[2016-03-26] MEDS: CEFEPIME INJ 2,000 MG in SODIUM CHLORIDE 0.9% INJ 100 ML IV SCH ×3 (04:00→20:03)
[2016-03-26] MEDS: FREE WATER G-TUBE SCH ×4 (06:16→22:52)
[2016-03-26] MEDS: BETHANECHOL CHL 10 MG TAB PO SCH ×3 (06:33→20:04)
[2016-03-26] MEDS: CHLORHEXIDINE GLUCONATE 0.12% 30 ML CUP MT SCH ×2 (10:00→20:04)
[2016-03-26] MEDS: DEXT 5%-NACL 0.45% 1000 ML INJ 1,000 ML IV SCH ×2 (10:00→22:53)
[2016-03-26] MEDS: LACTOBACILLUS ACIDOPHILUS TAB PO SCH ×3 (10:01→16:58)
[2016-03-26] MEDS: methylPREDNISolone SOD SUCC 40 MG/1 ML VIAL IV SCH ×2 (10:01→20:04)
[2016-03-26] MEDS: SODIUM CHLORIDE 0.9% FLUSH 5 ML FLUSH IVF SCH ×2 (10:02→20:05)
[2016-03-26] MEDS: GABAPENTIN 300 MG CAP G-TUBE SCH ×2 (10:02→20:10)
[2016-03-26] MEDS: predniSONE 5 MG TAB PO SCH (10:02)
[2016-03-26] MEDS: CARBIDOPA/LEVODOPA 25 MG/100 MG TAB GT SCH ×4 (10:03→20:05)
[2016-03-26] MEDS: PARoxetine HCL 20 MG TAB G-TUBE SCH (10:03)
[2016-03-26] MEDS: LINEZOLID 600 MG TAB PO SCH ×2 (10:03→20:05)
[2016-03-26] MEDS: LANSOPRAZOLE SOLUTAB 30 MG TAB NG SCH (10:04)
[2016-03-26] MEDS: ARTIFICIAL TEARS OPTH SOLN 15 ML BTL EACH EYE SCH ×3 (10:07→16:59)
[2016-03-26] MEDS: COLLAGENASE OINT 30 GM TUBE TOP SCH (10:07)
--- NOTE | 2016-03-26 10:52 | HHI.PR ---
Subjective Remarks No significant change in clinical status. No acute events overnight. Patient is nonverbal, noninteractive. Objective Vitals Vital Signs Date Time Temp Pulse Resp B/P Pulse Ox O2 Delivery O2 Flow Rate FiO2 03/26/16 08:42 98 40 03/26/16 08:00 97.2 80 20 103/56 96 03/26/16 05:15 98.9 98 23 112/65 96 03/26/16 05:15 99 40 03/26/16 00:30 99.0 100 23 122/78 97 03/26/16 00:22 99 40 03/26/16 00:14 18 03/25/16 22:00 99.8 110 24 120/64 98 03/25/16 16:33 97 40 03/25/16 16:09 97.5 102 25 113/65 98 03/25/16 12:43 98 40 03/25/16 12:06 98.8 87 27 126/75 99 I/O 03/25/16 03/25/16 03/25/16 03/26/16 03/26/16 03/26/16 07:00 15:00 23:00 07:00 15:00 23:00 Intake Total 1760 ml 2608 ml 0 ml 0 ml Output Total 900 ml 1050 ml 500 ml 2000 ml Balance 860 ml 1558 ml -500 ml -2000 ml Intake Oral 0 ml 0 ml 0 ml 0 ml IV Total 780 ml 1301 ml Tube Feeding 480 ml 807 ml Other 500 ml 500 ml Output Urine Total 900 ml 1050 ml 500 ml 2000 ml # Bowel Movements 4 0 2 3 Imaging Last Impressions Chest X-Ray 03/24/16 0000 Signed Impressions: Service Date/Time: March 09:30 - CONCLUSION: 1. Tracheostomy in satisfactory position. 2. Chronic interstitial changes stable compared to previous exams. Blaine Jackson MD Tube Change 03/17/16 1051 Signed Impressions: Service Date/Time: March 16:28 - CONCLUSION: Uncomplicated gastrojejunostomy tube exchange as above. John Anderson MD Tube Check 02/12/16 0000 Signed Impressions: Service Date/Time: Friday, February 12, 2016 16:08 - CONCLUSION: Uncomplicated tube injection as above. Blaine Jackson MD Gastrostomy Tube Change 01/15/16 0000 Signed Impressions: Service Date/Time: Friday, January 15, 2016 12:28 - CONCLUSION: Successful GJ tube exchange as above. Scott Goode MD Abdomen X-Ray 01/12/16 1628 Signed Impressions: Service Date/Time: Tuesday, January 12, 2016 17:35 - CONCLUSION: No evidence of obstruction or free air. Reyes Jewell MD Abdomen Ultrasound 12/06/15 0000 Signed Impressions: Service Date/Time: Sunday, December 06, 2015 17:42 - CONCLUSION: 1. The gallbladder is unremarkable with no evidence of cholelithiasis. 2. Simple cyst in the left kidney. 3. Mild pyelocaliectasis in the right kidney. Salazar Thurman MD Upper Extremity Ultrasound 10/13/15 0000 Signed Impressions: Service Date/Time: Tuesday, October 13, 2015 09:51 - CONCLUSION: 1. No evidence of deep venous thrombosis. John Anderson MD Renal Ultrasound 10/07/15 0000 Signed Impressions: Service Date/Time: Wednesday, October 07, 2015 18:29 - CONCLUSION: 1. No acute findings. 3.6 cm left renal cyst. Putnam catheter in bladder. Amaury Ellsworth MD Tunnelled Chest Tube Removal 08/05/15 1100 Signed Impressions: Service Date/Time: Wednesday, August 05, 2015 11:00 - CONCLUSION: Uncomplicated chest tube removal. Blaine Jackson MD Chest Tube Change 07/31/15 0000 Signed Impressions: Service Date/Time: Friday, July 31, 2015 14:34 - CONCLUSION: Uncomplicated reposition of previously placed chest tube as above. Blaine Jackson MD Chest Tube Insertion 07/30/15 0000 Signed Impressions: Service Date/Time: July 14:50 - CONCLUSION: Uncomplicated chest tube placement as above. Blaine Jackson MD Catheter Change 07/27/15 0000 Signed Impressions: Service Date/Time: Monday, July 27, 2015 14:43 - CONCLUSION: Uncomplicated gastrostomy tube exchange as above. Blaine Jackson MD Chest CT 07/11/15 0000 Signed Impressions: Service Date/Time: Saturday, July 11, 2015 09:49 - CONCLUSION: Scattered patchy densities significantly improved from previous study. Tiny anterior right basilar pneumothorax. Right-sided chest tube in good position. Néstor Matamoros MD Head CT 06/18/151902 Signed Impressions: Service Date/Time: June 19:31 - CONCLUSION: Diffuse atrophy unchanged. No acute intracranial findings. Kush Briscoe MD Abdomen/Pelvis CT 06/18/151902 Signed Impressions: Service Date/Time: June 19:36 - CONCLUSION: 1. Chronic nonspecific urinary bladder wall thickening. Bladder collapsed with Putnam catheter in place. 2. Chronic bilateral mid to lower lung zone groundglass opacity. 3. Nonobstructing left renal calculus. 4. Distended rectum. Kush Briscoe MD Objective Remarks GENERAL: Chronically ill-appearing, frail. Trach in place. CARDIOVASCULAR: Normal rate and regular rhythm without murmurs, gallops, or rubs. RESPIRATORY: Trach in place, Tbar. Coarse breath sounds bilaterally. GASTROINTESTINAL: Abdomen soft, non-distended. Normal active bowel sounds MUSCULOSKELETAL: Extremities without cyanosis, or edema. NEURO: Nonverbal, noninteractive. Procedures 07/26- PEG replacement 07/29- right pigtail catheter placement for new pneumothorax A/P Problem List: (1) Sepsis ICD Code: A41.9 Status: Acute (2) HCAP (healthcare-associated pneumonia) ICD Code: J18.9 Status: Acute (3) Fever ICD Code: R50.9 Status: Resolved (4) Sepsis due to urinary tract infection ICD Code: A41.9 Status: Resolved (5) Chronic respiratory failure ICD Code: J96.10 Status: Chronic (6) Parkinson disease ICD Code: G20 Status: Chronic (7) UTI (urinary tract infection) ICD Code: N39.0 Status: Resolved (8) Encephalopathy ICD Code: G93.40 Status: Resolved (9) Feeding tube obstruction ICD Code: T85.598A Status: Resolved (10) Conjunctivitis ICD Code: H10.9 Status: Resolved (11) Hypotension ICD Code: I95.9 Status: Resolved Assessment and Plan 55-year-old male with persistent sepsis, pneumonia, respiratory failure. New Sepsis sources: Tracheobronchitis and ESBL Kleb pneumo UTI MDR PSAE tracheobronchitis. ESBL MDR Kleb pneumo Cath associated UTI. h/o Recurrent aspiration tube feed related in past. Heena Cath associated UTI -Continue cefepime and Zyvox IV (ASP: ESBL Kleb pneumo UTI), per infectious disease specialist. Monitor culture. Poor prognosis as organisms continue to show resistance. Chronic respiratory failure Chronic tracheostomy. Currently on continuous BiPAP. T piece off. S/P recurrent right pneumothorax status post pigtail catheter removal. - Suction secretions and Levsin as needed - Pulmonology following. Continue Solu-Medrol 40 mg IV twice a day, Mucomyst Nebs 20 % , 2 CC BID X 3 days by pulmonology. Continue with Duo nebs 4 times a day and when necessary. -Appreciate input from palliative care medicine Metabolic Encephalopathy Parkinson's disease underlying. - Continue cognitive efforts , Sinemet , s/p Zyprexa Malnutrition/protein calorie - moderate Status post PEG. - Current Colace/senna for bowel regimen. - continue PPI.- Prevacid. - 02/03: J tube replacement due to dysfunction -IR replaced J G tube on 03/17/16 -Continue current tube feed Bilateral lower extremity Contractures Stage II DU. - Wound care team following. - Continue physical therapy. - turn q 2 hours s/p b/l conjunctivitis : Resolved. S/p abx eye drop GI prophylaxis: PPI. Stool softener PRN constipation. DVT PPx: Lovenox Social: I attempted to call the patient's daughter Radha for an update but no answers. Problem Qualifiers (1) Fever: Qualified Code: R50.9 - Fever, unspecified fever cause (2) Chronic respiratory failure: Qualified Code: J96.10 - Chronic respiratory failure, unspecified whether with hypoxia or hypercapnia (3) UTI (urinary tract infection): Qualified Code: N30.00 - Acute cystitis without hematuria (4) Conjunctivitis: Qualified Code: H10.9 - Conjunctivitis of left eye, unspecified conjunctivitis type Carlos Hernandez MD Mar 26, 2016 10:52
[2016-03-26] MEDS: MORPHINE SULFATE 4 MG/ML INJ IV PUSH PRN ×2 (12:49→19:24)
--- NOTE | 2016-03-26 18:36 | HHI.PR ---
Subjective Remarks Awake and stable 0n Bipap FIO2 40 % . No problem breathing . On Antibiotics per ID O2 Sat 96. .C XR shows chronic changes. Objective Vital Signs Date Time Temp Pulse Resp B/P Pulse Ox O2 Delivery O2 Flow Rate FiO2 03/26/16 16:22 96 40 03/26/16 16:00 97.1 86 20 111/72 96 03/26/16 12:53 28 03/26/16 12:00 99.2 98 22 106/71 96 03/26/16 08:42 98 40 03/26/16 08:00 97.2 80 20 103/56 96 03/26/16 05:15 98.9 98 23 112/65 96 03/26/16 05:15 99 40 03/26/16 00:30 99.0 100 23 122/78 97 03/26/16 00:22 99 40 03/26/16 00:14 18 03/25/16 22:00 99.8 110 24 120/64 98 I/O 03/25/16 03/25/16 03/25/16 03/26/16 03/26/16 03/26/16 07:00 15:00 23:00 07:00 15:00 23:00 Intake Total 1760 ml 2608 ml 0 ml 0 ml 200 ml 200 ml Output Total 900 ml 1050 ml 500 ml 2000 ml 1300 ml Balance 860 ml 1558 ml -500 ml -2000 ml -1100 ml 200 ml Intake Oral 0 ml 0 ml 0 ml 0 ml IV Total 780 ml 1301 ml Tube Feeding 480 ml 807 ml Other 500 ml 500 ml 200 ml 200 ml Output Urine Total 900 ml 1050 ml 500 ml 2000 ml 1300 ml # Bowel Movements 4 0 2 3 2 Objective Remarks This is a thin white male who is , awake with a trach tube in place. HEENT: Pupils are equal and reactive to light. CHEST:Decreased breath sounds,with Bi Basal crackles.Occ wheezes. CARDIOVASCULAR: S1 and S2 is normal.No murmur. ABDOMEN: Soft, nondistended. BS +. He has a PEG and J tube in place. EXTREMITIES: Contractures.muscle wasting.Reflexes 1 + NEURO: Awake and has weak extremities. Skin is dry .Lethargic Assessment and Plan Assessment and Plan IMPRESSION 1. Chronic Respiratory failure. 2. Sepsis, Aspiration. 3. Left basal Pneumonia, Resolved 4. Bi Basal pneumonia 5. Parkinson's disease 6. Dementia. 7. Severe Deconditioning. Plan : 1. Wean Bipap to 15/5 CM FIO2 40 % 2. Nebs Bid , duoneb. 3. Tube feeds at 45 CC 4. Solumedrol 40 mg bid.X 5 days. 5. Levsin .125 mg tid prn. 6. Cont Trach toilet and lavage. 7. Antibiotics per ID. 8. Mucomyst Nebs 20 % , 2 CC BID X 3 days. 1 Darren Kiser MD Mar 26, 2016 18:36
[2016-03-26] MEDS: ACETAMINOPHEN/HYDROcodone 325 MG/5 MG TAB PO PRN (20:05)
[2016-03-26] MEDS: ENOXAPARIN SODIUM 40 MG/0.4 ML SYRINGE SQ SCH (20:05)
[2016-03-27] VITALS (10 sets, daily range): BP systolic 93–121; BP diastolic 55–81; PULSE 64–96; RESP 22–26; TEMP 96.8–98.9; O2SAT 96–100
[2016-03-27] MEDS: BETHANECHOL CHL 10 MG TAB PO SCH ×3 (04:34→20:55)
[2016-03-27] MEDS: FREE WATER G-TUBE SCH ×3 (04:34→17:21)
[2016-03-27] MEDS: CEFEPIME INJ 2,000 MG in SODIUM CHLORIDE 0.9% INJ 100 ML IV SCH ×3 (04:34→20:56)
[2016-03-27] MEDS: CHLORHEXIDINE GLUCONATE 0.12% 30 ML CUP MT SCH ×2 (09:06→20:55)
[2016-03-27] MEDS: methylPREDNISolone SOD SUCC 40 MG/1 ML VIAL IV SCH ×2 (09:06→20:55)
[2016-03-27] MEDS: LACTOBACILLUS ACIDOPHILUS TAB PO SCH ×3 (09:07→17:21)
[2016-03-27] MEDS: ACETAMINOPHEN/HYDROcodone 325 MG/5 MG TAB PO PRN ×3 (09:07→20:59)
[2016-03-27] MEDS: PARoxetine HCL 20 MG TAB G-TUBE SCH (09:08)
[2016-03-27] MEDS: LANSOPRAZOLE SOLUTAB 30 MG TAB NG SCH (09:08)
[2016-03-27] MEDS: GABAPENTIN 300 MG CAP G-TUBE SCH ×2 (09:08→20:55)
[2016-03-27] MEDS: predniSONE 5 MG TAB PO SCH (09:09)
[2016-03-27] MEDS: LINEZOLID 600 MG TAB PO SCH ×2 (09:09→20:55)
[2016-03-27] MEDS: CARBIDOPA/LEVODOPA 25 MG/100 MG TAB GT SCH ×4 (09:10→20:55)
[2016-03-27] MEDS: SODIUM CHLORIDE 0.9% FLUSH 5 ML FLUSH IVF SCH ×2 (09:12→20:55)
[2016-03-27] MEDS: ARTIFICIAL TEARS OPTH SOLN 15 ML BTL EACH EYE SCH ×3 (09:13→17:22)
[2016-03-27] MEDS: COLLAGENASE OINT 30 GM TUBE TOP SCH (09:13)
[2016-03-27 09:22] LABS: POTASSIUM 4.7 MEQ/L (3.5-5.1)
--- NOTE | 2016-03-27 10:28 | HHI.PR ---
Subjective Remarks No change in clinical status. Patient is nonverbal and noninteractive. On BiPAP. Objective Vitals Vital Signs Date Time Temp Pulse Resp B/P Pulse Ox O2 Delivery O2 Flow Rate FiO2 03/27/16 09:01 97 40 03/27/16 08:00 98.9 64 22 93/55 100 03/27/16 05:05 96 40 03/27/16 04:12 96.9 94 26 110/70 98 03/27/16 00:48 96.8 90 24 108/68 98 03/27/16 00:15 99 40 03/26/16 21:05 16 03/26/16 20:45 96.5 95 24 109/69 97 03/26/16 20:24 24 03/26/16 16:22 96 40 03/26/16 16:00 97.1 86 20 111/72 96 03/26/16 12:00 99.2 98 22 106/71 96 03/26/16 12:00 96 Bi-Pap 40 I/O 03/26/16 03/26/16 03/26/16 03/27/16 03/27/16 03/27/16 07:00 15:00 23:00 07:00 15:00 23:00 Intake Total 0 ml 200 ml 1465 ml Output Total 2000 ml 1300 ml 400 ml 1250 ml Balance -2000 ml -1100 ml 1065 ml -1250 ml Intake Oral 0 ml IV Total 830 ml Tube Feeding 435 ml Other 200 ml 200 ml Output Urine Total 2000 ml 1300 ml 400 ml 1250 ml # Bowel Movements 3 2 2 Result Diagram: 03/27/16 0805 Objective Remarks GENERAL: Chronically ill-appearing, frail. Contracted. Trach in place. CARDIOVASCULAR: Normal rate and regular rhythm without murmurs, gallops, or rubs. RESPIRATORY: Trach in place, Tbar. Coarse breath sounds bilaterally. GASTROINTESTINAL: Abdomen soft, non-distended. Normal active bowel sounds MUSCULOSKELETAL: Extremities with evidence of contraction. No edema. NEURO: Nonverbal, noninteractive. Procedures 07/26- PEG replacement 07/29- right pigtail catheter placement for new pneumothorax A/P Problem List: (1) Sepsis ICD Code: A41.9 Status: Acute (2) HCAP (healthcare-associated pneumonia) ICD Code: J18.9 Status: Acute (3) Fever ICD Code: R50.9 Status: Resolved (4) Sepsis due to urinary tract infection ICD Code: A41.9 Status: Resolved (5) Chronic respiratory failure ICD Code: J96.10 Status: Chronic (6) Parkinson disease ICD Code: G20 Status: Chronic (7) UTI (urinary tract infection) ICD Code: N39.0 Status: Resolved (8) Encephalopathy ICD Code: G93.40 Status: Resolved (9) Feeding tube obstruction ICD Code: T85.598A Status: Resolved (10) Conjunctivitis ICD Code: H10.9 Status: Resolved (11) Hypotension ICD Code: I95.9 Status: Resolved Assessment and Plan 55-year-old male with persistent sepsis, pneumonia, respiratory failure. New Sepsis sources: Tracheobronchitis and ESBL Kleb pneumo UTI MDR PSAE tracheobronchitis. ESBL MDR Kleb pneumo Cath associated UTI. h/o Recurrent aspiration tube feed related in past. Heena Cath associated UTI -Continue cefepime and Zyvox IV (ASP: ESBL Kleb pneumo UTI), per infectious disease specialist. Monitor culture. Poor prognosis as organisms continue to show resistance. ID following. Chronic respiratory failure Chronic tracheostomy. Currently on continuous BiPAP. T piece off. S/P recurrent right pneumothorax status post pigtail catheter removal. - Suction secretions and Levsin as needed - Pulmonology following. Continue Solu-Medrol 40 mg IV twice a day, Mucomyst Nebs 20 % , 2 CC BID X 3 days by pulmonology. Continue with Duo nebs 4 times a day and when necessary. - Appreciate input from palliative care medicine Metabolic Encephalopathy Parkinson's disease underlying. - Continue cognitive efforts , Sinemet , s/p Zyprexa Malnutrition/protein calorie - moderate Status post PEG. - Current Colace/senna for bowel regimen. - continue PPI.- Prevacid. - 02/03: J tube replacement due to dysfunction -IR replaced J G tube on 03/17/16 -Continue current tube feed Bilateral lower extremity Contractures Stage II DU. - Wound care team following. - Continue physical therapy to help with contractures. - turn q 2 hours GI prophylaxis: PPI. Stool softener PRN constipation. DVT PPx: Lovenox Social: I attempted to call the patient's daughter Radha again for an update but no answers. Problem Qualifiers (1) Fever: Qualified Code: R50.9 - Fever, unspecified fever cause (2) Chronic respiratory failure: Qualified Code: J96.10 - Chronic respiratory failure, unspecified whether with hypoxia or hypercapnia (3) UTI (urinary tract infection): Qualified Code: N30.00 - Acute cystitis without hematuria (4) Conjunctivitis: Qualified Code: H10.9 - Conjunctivitis of left eye, unspecified conjunctivitis type Carlos Hernandez MD Mar 27, 2016 10:28
[2016-03-27] MEDS: DEXT 5%-NACL 0.45% 1000 ML INJ 1,000 ML IV SCH (14:24)
--- NOTE | 2016-03-27 16:17 | HHI.PR ---
Subjective Remarks Awake and stable 0n Bipap FIO2 40 % . Anxious . On Antibiotics per ID O2 Sat 96. .C XR shows chronic changes. Objective Vital Signs Date Time Temp Pulse Resp B/P Pulse Ox O2 Delivery O2 Flow Rate FiO2 03/27/16 12:00 98.6 86 22 108/64 98 03/27/16 09:01 97 40 03/27/16 08:00 98.9 64 22 93/55 100 03/27/16 05:05 96 40 03/27/16 04:12 96.9 94 26 110/70 98 03/27/16 00:48 96.8 90 24 108/68 98 03/27/16 00:15 99 40 03/26/16 21:05 16 03/26/16 20:45 96.5 95 24 109/69 97 03/26/16 20:24 24 03/26/16 16:22 96 40 I/O 03/26/16 03/26/16 03/26/16 03/27/16 03/27/16 03/27/16 07:00 15:00 23:00 07:00 15:00 23:00 Intake Total 0 ml 200 ml 1465 ml 200 ml Output Total 2000 ml 1300 ml 400 ml 1250 ml 850 ml Balance -2000 ml -1100 ml 1065 ml -1250 ml -650 ml Intake Oral 0 ml IV Total 830 ml Tube Feeding 435 ml Other 200 ml 200 ml 200 ml Output Urine Total 2000 ml 1300 ml 400 ml 1250 ml 850 ml # Bowel Movements 3 2 2 Result Diagram: 03/27/16 08 Objective Remarks This is a thin white male who is , awake with a trach tube in place. HEENT: Pupils are equal and reactive to light. CHEST:Decreased breath sounds,with Bi Basal crackles.No wheezes. CARDIOVASCULAR: S1 and S2 is normal.No murmur. ABDOMEN: Soft, nondistended. BS +. He has a PEG and J tube in place. EXTREMITIES: Contractures.muscle wasting.Reflexes 1 + NEURO: Awake and has weak extremities. Skin is dry .Lethargic. Assessment and Plan Assessment and Plan IMPRESSION 1. Chronic Respiratory failure. 2. Sepsis, Aspiration. 3. Left basal Pneumonia, Resolved 4. Bi Basal pneumonia 5. Parkinson's disease 6. Dementia. 7. Severe Deconditioning. Plan : 1. Wean Bipap to 15/5 CM FIO2 40 % 2. Nebs Bid , duoneb. 3. Tube feeds at 45 CC 4. Solumedrol 40 mg bid.X 3 days. 5. Levsin .125 mg tid prn. 6. Cont Trach toilet and lavage. 7. Antibiotics per ID. 8. D/c Mucomyst Nebs 9. CBC,BMP in am 1 Darren Kiser MD Mar 27, 2016 16:17
[2016-03-27] MEDS: ENOXAPARIN SODIUM 40 MG/0.4 ML SYRINGE SQ SCH (22:00)
[2016-03-28] VITALS (10 sets, daily range): BP systolic 92–151; BP diastolic 62–86; PULSE 66–132; RESP 22–26; TEMP 96.7–99.5; O2SAT 95–100
[2016-03-28] MEDS: BETHANECHOL CHL 10 MG TAB PO SCH ×3 (04:58→22:00)
[2016-03-28] MEDS: FREE WATER G-TUBE SCH ×4 (05:01→18:00)
[2016-03-28] MEDS: CEFEPIME INJ 2,000 MG in SODIUM CHLORIDE 0.9% INJ 100 ML IV SCH ×3 (05:01→20:00)
[2016-03-28] MEDS: ACETAMINOPHEN/HYDROcodone 325 MG/5 MG TAB PO PRN (05:01)
[2016-03-28] MEDS: LORazepam 2 MG/ML VIAL IVP PRN (05:02)
[2016-03-28] MEDS: DEXT 5%-NACL 0.45% 1000 ML INJ 1,000 ML IV SCH ×2 (05:39→19:50)
[2016-03-28 08:03] LABS: AUTOMATED NEUTROPHIL # 7.5 TH/MM3 (1.8-7.7); BASOPHIL % 0.1 % (0.0-2.0); HEMATOCRIT 28.8 % (39.0-51.0); HEMO FLAGS DIFF FINAL; LYMPH % 8.1 % (9.0-44.0); LYMPHOCYTE # 0.7 TH/MM3 (1.0-4.8); MEAN CELL VOLUME 83.5 FL (80.0-100.0); MEAN CORPUSCULAR HGB CONC 32.3 % (32.0-36.0); MONO % 8.5 % (0.0-8.0); NEUT % 83.3 % (16.0-70.0); PLATELET COUNT 134 TH/MM3 (150-450); RED BLOOD COUNT 3.45 MIL/MM3 (4.50-5.90)
[2016-03-28 08:19] LABS: BICARBONATE 36.5 MEQ/L (21.0-32.0); POTASSIUM 4.2 MEQ/L (3.5-5.1)
[2016-03-28] MEDS: SODIUM CHLORIDE 0.9% FLUSH 5 ML FLUSH IVF SCH ×2 (09:00→21:00)
[2016-03-28] MEDS: ARTIFICIAL TEARS OPTH SOLN 15 ML BTL EACH EYE SCH ×3 (09:00→19:08)
[2016-03-28] MEDS: predniSONE 5 MG TAB PO SCH (09:49)
[2016-03-28] MEDS: LINEZOLID 600 MG TAB PO SCH (09:50)
[2016-03-28] MEDS: GABAPENTIN 300 MG CAP G-TUBE SCH ×2 (09:50→21:00)
[2016-03-28] MEDS: LANSOPRAZOLE SOLUTAB 30 MG TAB NG SCH (09:50)
[2016-03-28] MEDS: PARoxetine HCL 20 MG TAB G-TUBE SCH (09:50)
[2016-03-28] MEDS: LACTOBACILLUS ACIDOPHILUS TAB PO SCH ×3 (09:51→19:07)
[2016-03-28] MEDS: CARBIDOPA/LEVODOPA 25 MG/100 MG TAB GT SCH ×4 (09:51→21:00)
[2016-03-28] MEDS: CHLORHEXIDINE GLUCONATE 0.12% 30 ML CUP MT SCH ×2 (09:51→20:00)
[2016-03-28] MEDS: methylPREDNISolone SOD SUCC 40 MG/1 ML VIAL IV SCH (09:52)
--- NOTE | 2016-03-28 12:21 | HHI.PR ---
Subjective Remarks No change in clinical status. No acute issues overnight. Objective Vitals Vital Signs Date Time Temp Pulse Resp B/P Pulse Ox O2 Delivery O2 Flow Rate FiO2 03/28/16 12:08 96.9 88 22 113/81 96 03/28/16 08:25 97.1 66 22 92/62 98 03/28/16 04:38 97.8 83 26 108/86 97 03/28/16 03:28 96 40 03/28/16 00:29 96.7 90 24 120/80 99 03/27/16 22:01 98 40 03/27/16 21:59 18 03/27/16 20:45 97.8 82 24 121/81 99 03/27/16 16:00 98.4 96 22 112/71 98 I/O 03/27/16 03/27/16 03/27/16 03/28/16 03/28/16 03/28/16 07:00 15:00 23:00 07:00 15:00 23:00 Intake Total 200 ml 1683 ml Output Total 1250 ml 1100 ml 450 ml 1700 ml Balance -1250 ml -900 ml 1233 ml -1700 ml IV Total 966 ml Tube Feeding 517 ml Other 200 ml 200 ml Output Urine Total 1250 ml 1100 ml 450 ml 1700 ml # Bowel Movements 2 2 1 2 Result Diagram: 03/28/1673403/28/16734 Objective Remarks GENERAL: Chronically ill-appearing, frail. Contracted. Trach in place. CARDIOVASCULAR: Normal rate and regular rhythm without murmurs, gallops, or rubs. RESPIRATORY: Trach in place, Tbar. Coarse breath sounds bilaterally. GASTROINTESTINAL: Abdomen soft, non-distended. Normal active bowel sounds MUSCULOSKELETAL: Extremities with evidence of contraction. No edema. NEURO: Nonverbal, noninteractive. Procedures 07/26- PEG replacement 07/29- right pigtail catheter placement for new pneumothorax A/P Problem List: (1) Sepsis ICD Code: A41.9 Status: Acute (2) HCAP (healthcare-associated pneumonia) ICD Code: J18.9 Status: Acute (3) Fever ICD Code: R50.9 Status: Resolved (4) Sepsis due to urinary tract infection ICD Code: A41.9 Status: Resolved (5) Chronic respiratory failure ICD Code: J96.10 Status: Chronic (6) Parkinson disease ICD Code: G20 Status: Chronic (7) UTI (urinary tract infection) ICD Code: N39.0 Status: Resolved (8) Encephalopathy ICD Code: G93.40 Status: Resolved (9) Feeding tube obstruction ICD Code: T85.598A Status: Resolved (10) Conjunctivitis ICD Code: H10.9 Status: Resolved (11) Hypotension ICD Code: I95.9 Status: Resolved Assessment and Plan 55-year-old male with persistent sepsis, pneumonia, respiratory failure. New Sepsis sources: Tracheobronchitis and ESBL Kleb pneumo UTI MDR PSAE tracheobronchitis. ESBL MDR Kleb pneumo Cath associated UTI. h/o Recurrent aspiration tube feed related in past. Heena Cath associated UTI - Continue cefepime and Zyvox IV (ASP: ESBL Kleb pneumo UTI), ID following. Monitor culture. Poor prognosis as organisms continue to show resistance per ID. Chronic respiratory failure Chronic tracheostomy. Currently on continuous BiPAP. T piece off. S/P recurrent right pneumothorax status post pigtail catheter removal. - Suction secretions and Levsin as needed - Pulmonology following. Continue Solu-Medrol 40 mg IV twice a day, Mucomyst Nebs 20 % , 2 CC BID X 3 days by pulmonology. Continue with Duo nebs 4 times a day and when necessary. - Appreciate input from palliative care medicine Metabolic Encephalopathy Parkinson's disease underlying. - Continue cognitive efforts , Sinemet , s/p Zyprexa Malnutrition/protein calorie - moderate Status post PEG. - Current Colace/senna for bowel regimen. - continue PPI.- Prevacid. - 02/03: J tube replacement due to dysfunction -IR replaced J G tube on 03/17/16 -Continue current tube feed Bilateral lower extremity Contractures Stage II DU. - Wound care team following. - Continue physical therapy to help with contractures. - turn q 2 hours GI prophylaxis: PPI. Stool softener PRN constipation. DVT PPx: Lovenox Social: I have been unable to get in touch with the patient's daughter for update. Problem Qualifiers (1) Fever: Qualified Code: R50.9 - Fever, unspecified fever cause (2) Chronic respiratory failure: Qualified Code: J96.10 - Chronic respiratory failure, unspecified whether with hypoxia or hypercapnia (3) UTI (urinary tract infection): Qualified Code: N30.00 - Acute cystitis without hematuria (4) Conjunctivitis: Qualified Code: H10.9 - Conjunctivitis of left eye, unspecified conjunctivitis type Carlos Hernandez MD Mar 28, 2016 12:21
[2016-03-28] MEDS: MORPHINE SULFATE 4 MG/ML INJ IV PUSH PRN (13:23)
[2016-03-28] MEDS: COLLAGENASE OINT 30 GM TUBE TOP SCH (13:30)
--- NOTE | 2016-03-28 18:28 | HHI.PR ---
Addendum to Inpatient Note Addendum Reason: Additional Documentation Additional Information Cultures reviewed Sputum with PSAE (different susceptibilities some resistant some intermediate) clinically stable on Cefepime IV Also Steno Malto: Levaquin diff susceptibilities. Last one bactrim S, Levaquin I , DC Zyvox Continue Cefepime IV Start oral bactrim Repeat CXR in am to assess clinical response to decide length of treatment and stop date. Patient at risk for recurrent aspiration and mucus plugging. Trina Moss MD Mar 28, 2016 18:28
--- NOTE | 2016-03-28 18:46 | RADRPT ---
EXAM DATE/TIME: 03/28/2016 18:19 [facility] COMPARISON: CHEST SINGLE AP, March 24, 2016, 9:30. INDICATIONS : Pneumonia. MEDICAL HISTORY : Diabetes mellitus type II. Respiratory failure. SURGICAL HISTORY : G-tube. ENCOUNTER: Subsequent ACUITY: 2 months PAIN SCORE: Non-responsive. LOCATION: Bilateral chest FINDINGS: Mild biapical infiltrate again noted. No effusion seen. No pneumothorax. Heart size stable, within normal limits. Thoracic aorta is tortuous. Trach collar again noted. CONCLUSION: Mild bilateral upper lobe infiltrates similar to before. Erlin Esocbar MD on March 28, 2016 at 18:43 Board Certified Radiologist. This report was verified electronically.
--- NOTE | 2016-03-28 19:38 | HHI.PR ---
Subjective Remarks Awake and stable 0n Bipap FIO2 40 % . . On Antibiotics per ID O2 Sat 96. .C XR shows no new infiltrate Objective Vital Signs Date Time Temp Pulse Resp B/P Pulse Ox O2 Delivery O2 Flow Rate FiO2 03/28/16 17:15 96 40 03/28/16 16:34 98.2 91 22 110/68 96 03/28/16 15:35 96 40 03/28/16 13:28 19 03/28/16 12:08 96.9 88 22 113/81 96 03/28/16 08:25 97.1 66 22 92/62 98 03/28/16 04:38 97.8 83 26 108/86 97 03/28/16 03:28 96 40 03/28/16 00:29 96.7 90 24 120/80 99 03/27/16 22:01 98 40 03/27/16 21:59 18 03/27/16 20:45 97.8 82 24 121/81 99 I/O 03/27/16 03/27/16 03/27/16 03/28/16 03/28/16 03/28/16 07:00 15:00 23:00 07:00 15:00 23:00 Intake Total 200 ml 1683 ml Output Total 1250 ml 1100 ml 450 ml 2350 ml Balance -1250 ml -900 ml 1233 ml -2350 ml IV Total 966 ml Tube Feeding 517 ml Other 200 ml 200 ml Output Urine Total 1250 ml 1100 ml 450 ml 2350 ml # Bowel Movements 2 2 1 3 Result Diagram: 03/28/16 0735 03/28/16 0735 Objective Remarks This is a thin white male who is , awake with a trach tube in place. HEENT: Pupils are equal and reactive to light. CHEST:Decreased breath sounds,with occ Basal crackles.No wheezes. CARDIOVASCULAR: S1 and S2 is normal.No murmur. ABDOMEN: Soft, nondistended. BS +. He has a PEG and J tube in place. EXTREMITIES: Contractures.muscle wasting.Reflexes 1 + NEURO: Awake and has weak extremities. Skin is cool , dry .Lethargic. Assessment and Plan Assessment and Plan IMPRESSION 1. Chronic Respiratory failure. 2. Sepsis, Aspiration. 3. Left basal Pneumonia, Resolved 4. Bi Basal pneumonia 5. Parkinson's disease 6. Dementia. 7. Severe Deconditioning. Plan : 1. Wean Bipap to 12/5 CM FIO2 40 % 2. Nebs Bid , duoneb. 3. Tube feeds at [address] on T Bar in am 45 % 5. Levsin .125 mg tid prn. 6. Cont Trach toilet and lavage. 7. Antibiotics per ID. 8. PT evaluation 9. CBC,BMP in am 1 Darren Kiser MD Mar 28, 2016 19:38
[2016-03-28] MEDS: SULFAMETHOXAZOLE-TRIMETHOPRIM 400-80 MG TAB PO SCH (21:00)
--- NOTE | 2016-03-28 21:01 | HHI.HCPN ---
Reason for visit a. To assist with evaluation and management of symptoms including: pain, malnutrition, dyspnea. b. To assist medical decision maker(s) with: better understanding of current medical conditions; weighing benefits/burdens of medical treatment options; making medical treatment decisions. . Subjective/Interval History Patient seen and examined in room. No family at bedside. Patient has eyes open but only intermittently track me. On a couple of occasions appeared to attempt to mouth words when I asked a question. Afebrile. Vital signs stable. On BiPAP to tracheostomy. WBC 9.0; Hg 9.3; Plt 134. CO2 36.5; renal function intct. 03/21/16 sputum culture positive pseudomonas aeruginosa + Stenotrophomaonas, he is on Bactrim; Cefepime CXR continues to show mild bilateral upper lobe infiltrates. Nurses note giramcing, tears, frown daily. * Received [place] 5-325 x 3 doses on 03/27 * No parenteral morphine given 03/27 .. . Family/friend interactions No family / friends at bedside. . Advance Directives Living Will: Never completed Health Care Surrogate: Copy in medical record Durable Power of Technical Services Analyst: Never completed Advance Directive Specifics Date completed: Patient visited Scott Mack, Technical Services Analyst in March and again in November 2014. The patient was encouraged to complete Advance directive documents but never did them. Dr. Pickard personally called Mr. Mack ([phone]) to check for advance directives. Health Care Surrogate(s): The patient completed a health care surrogate document dated 09/02/14 desigating his friend Bola Nolasco as surrogate. Mr. Nolasco was not aware of this and has declined serving in that capacity. The patient has an adult daughter -- Radha Foreman who is willing to serve as health care proxy decision maker. Patient's mother, Teresa is aware. Objective Vital Signs Date Time Temp Pulse Resp B/P Pulse Ox O2 Delivery O2 Flow Rate FiO2 03/28/16 20:38 99.5 132 23 151/79 100 03/28/16 19:50 95 40 03/28/16 17:15 96 40 03/28/16 16:34 98.2 91 22 110/68 96 03/28/16 15:35 96 40 03/28/16 13:28 19 03/28/16 12:08 96.9 88 22 113/81 96 03/28/16 08:25 97.1 66 22 92/62 98 03/28/16 04:38 97.8 83 26 108/86 97 03/28/16 03:28 96 40 03/28/16 00:29 96.7 90 24 120/80 99 03/27/16 22:01 98 40 03/27/16 21:59 18 Intake & Output 03/28/16 03/28/16 07:00 19:00 Output Total 450 ml 2350 ml Balance -450 ml -2350 ml Output Urine Total 450 ml 2350 ml # Bowel Movements 1 3 . Physical Exam CONSTITUTIONAL/GENERAL: This is a thin, pale, contracted, chronically ill appearing male. On BiPAP to trach. TUBES/LINES/DRAINS: Trach, PIV left foot, valdez cath, G-J tube, SKIN: Pale. Sacral wound not examined today. Not diaphoretic. NECK: Tracheostomy to BiPAP. CARDIOVASCULAR: Regular rate and rhythm without murmurs, gallops, or rubs. No JVD. RESPIRATORY/CHEST: Tachypneic, but not using accessory muscles .Breath sounds equal bilaterally with few faint rhonchi. GASTROINTESTINAL: Abdomen soft, non-tender, nondistended. GENITOURINARY: Without palpable bladder distension. catheter in place. MUSCULOSKELETAL: Contractures of bilateral upper and right lower extremities appear more rigid. No mottling. NEUROLOGICAL: Eyes open. Appeared to hear me and track to left only briefly. Does not follow commands. Intermittently attempts to mouth words but unintelligible. PSYCHIATRIC: Unable to assess due to level of responsiveness. . Diagnostic Tests Laboratory Laboratory Tests Test 03/27/16 03/28/16 08:05 07:35 Sodium Level 137 MEQ/L 139 MEQ/L (136-145) (136-145) Potassium Level 4.7 MEQ/L 4.2 MEQ/L (3.5-5.1) (3.5-5.1) Chloride Level 95 MEQ/L 98 MEQ/L (98-107) (98-107) Carbon Dioxide Level 35.0 MEQ/L 36.5 MEQ/L (21.0-32.0) (21.0-32.0) Anion Gap 7 MEQ/L (5-15) 5 MEQ/L (5-15) Blood Urea Nitrogen 21 MG/DL (7-18) 25 MG/DL (7-18) Creatinine 0.36 MG/DL 0.41 MG/DL (0.60-1.30) (0.60-1.30) Estimat Glomerular Filtration 254 ML/MIN 219 ML/MIN Rate (>89) (>89) Random Glucose 155 MG/DL 152 MG/DL (74-106) (74-106) Calcium Level 8.7 MG/DL 8.6 MG/DL (8.5-10.1) (8.5-10.1) White Blood Count 9.0 TH/MM3 (4.0-11.0) Red Blood Count 3.45 MIL/MM3 (4.50-5.90) Hemoglobin 9.3 GM/DL (13.0-17.0) Hematocrit 28.8 % (39.0-51.0) Mean Corpuscular Volume 83.5 FL (80.0-100.0) Mean Corpuscular Hemoglobin 27.0 PG (27.0-34.0) Mean Corpuscular Hemoglobin 32.3 % Concent (32.0-36.0) Red Cell Distribution Width 16.0 % (11.6-17.2) Platelet Count 134 TH/MM3 (150-450) Mean Platelet Volume 9.7 FL (7.0-11.0) Neutrophils (%) (Auto) 83.3 % (16.0-70.0) Lymphocytes (%) (Auto) 8.1 % (9.0-44.0) Monocytes (%) (Auto) 8.5 % (0.0-8.0) Eosinophils (%) (Auto) 0.0 % (0.0-4.0) Basophils (%) (Auto) 0.1 % (0.0-2.0) Neutrophils # (Auto) 7.5 TH/MM3 (1.8-7.7) Lymphocytes # (Auto) 0.7 TH/MM3 (1.0-4.8) Monocytes # (Auto) 0.8 TH/MM3 (0-0.9) Eosinophils # (Auto) 0.0 TH/MM3 (0-0.4) Basophils # (Auto) 0.0 TH/MM3 (0-0.2) CBC Comment DIFF FINAL Differential Comment . Result Diagram: 03/28/16 0735 03/28/16 0735 Microbiology * Sputum cx of 03/21/16 --> Pseudomonas + Stenotrophomonas maltophilia . Imaging Last Impressions Chest X-Ray 03/28/16 0000 Signed Impressions: Service Date/Time: Monday, March 28, 2016 18:19 - CONCLUSION: Mild bilateral upper lobe infiltrates similar to before. Erlin Escobar MD Tube Change 03/17/16 1051 Signed Impressions: Service Date/Time: March 16:28 - CONCLUSION: Uncomplicated gastrojejunostomy tube exchange as above. John Anderson MD Tube Check 02/12/16 0000 Signed Impressions: Service Date/Time: Friday, February 12, 2016 16:08 - CONCLUSION: Uncomplicated tube injection as above. Blaine Jackson MD Gastrostomy Tube Change 01/15/16 0000 Signed Impressions: Service Date/Time: Friday, January 15, 2016 12:28 - CONCLUSION: Successful GJ tube exchange as above. Scott Goode MD Abdomen X-Ray 01/12/16 1628 Signed Impressions: Service Date/Time: Tuesday, January 12, 2016 17:35 - CONCLUSION: No evidence of obstruction or free air. Reyes Jewell MD Abdomen Ultrasound 12/06/15 0000 Signed Impressions: Service Date/Time: Sunday, December 06, 2015 17:42 - CONCLUSION: 1. The gallbladder is unremarkable with no evidence of cholelithiasis. 2. Simple cyst in the left kidney. 3. Mild pyelocaliectasis in the right kidney. Salazar Thurman MD Upper Extremity Ultrasound 10/13/15 0000 Signed Impressions: Service Date/Time: Tuesday, October 13, 2015 09:51 - CONCLUSION: 1. No evidence of deep venous thrombosis. John Anderson MD Renal Ultrasound 10/07/15 0000 Signed Impressions: Service Date/Time: Wednesday, October 07, 2015 18:29 - CONCLUSION: 1. No acute findings. 3.6 cm left renal cyst. Valdez catheter in bladder. Amaury Ellsworth MD Tunnelled Chest Tube Removal 08/05/15 1100 Signed Impressions: Service Date/Time: Wednesday, August 05, 2015 11:00 - CONCLUSION: Uncomplicated chest tube removal. Blaine Jackson MD Chest Tube Change 07/31/15 0000 Signed Impressions: Service Date/Time: Friday, July 31, 2015 14:34 - CONCLUSION: Uncomplicated reposition of previously placed chest tube as above. Blaine Jackson MD Chest Tube Insertion 07/30/15 0000 Signed Impressions: Service Date/Time: July 14:50 - CONCLUSION: Uncomplicated chest tube placement as above. Blaine Jackson MD Catheter Change 07/27/15 0000 Signed Impressions: Service Date/Time: Monday, July 27, 2015 14:43 - CONCLUSION: Uncomplicated gastrostomy tube exchange as above. Blaine Jackson MD Chest CT 07/11/15 0000 Signed Impressions: Service Date/Time: Saturday, July 11, 2015 09:49 - CONCLUSION: Scattered patchy densities significantly improved from previous study. Tiny anterior right basilar pneumothorax. Right-sided chest tube in good position. Néstor Matamoros MD Head CT 06/18/151902 Signed Impressions: Service Date/Time: June 19:31 - CONCLUSION: Diffuse atrophy unchanged. No acute intracranial findings. Kush Briscoe MD Abdomen/Pelvis CT 06/18/151902 Signed Impressions: Service Date/Time: June 19:36 - CONCLUSION: 1. Chronic nonspecific urinary bladder wall thickening. Bladder collapsed with Valdez catheter in place. 2. Chronic bilateral mid to lower lung zone groundglass opacity. 3. Nonobstructing left renal calculus. 4. Distended rectum. Kush Briscoe MD . Procedures * 03/17/16 - GJ tube exchange. * 02/27/16 - GJ tube exchange. * 02/03/16 GJ tube exchange * 01/27/16 - GJ tube exchange * 08/05/15 - chest tube removal * 07/31/15 chest tube change x 2 * 07/17/15 - Chest tube removal * 07/07/15 - Chest tube placement on right * mechanical ventilation . Assessment and Plan Disease Oriented Problem List: (1) Acute respiratory failure Comment: 10/13/15 - Halicat for hypotension and tube feeding coming from trach. Daughter has since elected no mech vent, no chest compressions, shock or ACLS. . (2) Chronic respiratory failure (3) Pneumonia Comment: recurrent aspiration. . (4) UTI (urinary tract infection) Comment: . (5) Parkinson disease Comment: End stage (6) Moderate malnutrition Symptom Scale: (1) Pain 0-10 Scale: Unable to quantify (Pt unable to quantify, nurse reports level 1) Comment: Sources of pain might include wound, prolonged bedbound status, contractures, restraints, valdez, vascular access catheters. Appears comfortable on current regimen. ,l (2) Dyspnea 0-10 Scale: Unable to quantify Comment: On BiPAP. Ongoing high risk of recurrent aspiration pneumonia currently being treated. . . (3) Malnutrition 0-10 Scale: Unable to quantify Comment: On tube feeding. . (4) Encephalopathy 0-10 Scale: Unable to quantify Comment: Remains minimally responsive. . Pertinent Non-Medical Issues Psychosocial: [facility] resident. 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 Severe dementia. Daughter, mother, and brother are involved. Spiritual: Catholic. Has been a member for the [facility] restorationism and members have provided both community support and spiritual support in the past. Legal: No advance directives. Daughter (Radha Foreman) is legal proxy and lives 4 hours away. She can be quite difficult to contact by phone. Ethical issues impacting care: None. . Important Contacts * Radha Foreman (daughter and proxy) [phone] * Teresa Perea (mother -- lives in [place]) [phone] . Prognosis Patient has end stage Parkinson's with end stage dementia. 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 He is a chronic trach/PEG tube patient with contractures and skin breakdown. He has been hospitalized here over 250 days on this admission and moves back and forth from floor to ICU for recurrent pneumonia (probably from aspirations) and sepsis. Should family continue to want aggressive care, he will continue to go back and forth from facility to hospital until such time that we are no longer able to overcome the sepsis. Patient is hospice eligible whenever family is ready to transition to "comfort measures only." . Code Status: No Code (No cardiac resuscitation, shock, ACLS or mech vent. ) Plan * Decision making: Patient is incapacitated and will not regain capacity. There is no designated health care surrogate. Daughter, Radha Foreman, is legal proxy under [place] statutes but can be hard to contact at times. * NO CODE - No cardiac resuscitation, shock, ACLS or mech vent, No Pressors. * Pain: Sources of pain are unclear as patient in non communicative, but would include prolonged bedbound status; tubes and lines; worsening contractures; wound; etc. Recommend at least scheduled acetaminophen (e.g. 650 mg q 8 hours ATC) as patient is probably uncomfortable and cannot communicate it. * Dyspnea: Recurrent aspirations pneumonias. Hopefully, can avoid ICU and vent. Patient back on antibiotics. Culture + pseudomonas and Stenotrophomonas. * Malnutrition: Tolerating tube feeds but continues to have intermittent aspirations. Patient is cachectic despite ongoing nutrition. * Palliative care will continue to follow to assist with symptom management. . Attestation To help prompt me to consider important information that might be impacting today's encounter and assessment, information from prior notes written by myself or my colleagues may have been "brought forward" into today's note. My signature on this note, however, is an attestation that I personally performed the exam, history, and/or decision-making noted today, and, unless otherwise indicated, the interactions with patient, family, and staff as well as the review of records all occurred today. I also attest that the listed assessment and stated plan reflect my best clinical judgment today based on the combination of historical information, prior notes, and today's exam/ interactions. When time spent is documented, it refers only to time spent today by the signer, or if indicated, combined time spent today by collaborating physician/nurse practitioner. . Pascual Pickard MD Mar 28, 2016 21:01
[2016-03-28] MEDS: ENOXAPARIN SODIUM 40 MG/0.4 ML SYRINGE SQ SCH (22:00)
[2016-03-29] VITALS (9 sets, daily range): BP systolic 89–137; BP diastolic 59–72; PULSE 68–84; RESP 20–32; TEMP 96.5–98.4; O2SAT 95–100
[2016-03-29] MEDS: CEFEPIME INJ 2,000 MG in SODIUM CHLORIDE 0.9% INJ 100 ML IV SCH ×3 (04:00→20:00)
[2016-03-29] MEDS: FREE WATER G-TUBE SCH ×4 (06:00→18:00)
[2016-03-29] MEDS: BETHANECHOL CHL 10 MG TAB PO SCH ×3 (06:00→22:00)
[2016-03-29] MEDS: COLLAGENASE OINT 30 GM TUBE TOP SCH (09:00)
[2016-03-29] MEDS: ARTIFICIAL TEARS OPTH SOLN 15 ML BTL EACH EYE SCH ×3 (09:20→18:00)
[2016-03-29] MEDS: GABAPENTIN 300 MG CAP G-TUBE SCH ×2 (09:20→21:00)
[2016-03-29] MEDS: CARBIDOPA/LEVODOPA 25 MG/100 MG TAB GT SCH ×4 (09:20→21:00)
[2016-03-29] MEDS: SULFAMETHOXAZOLE-TRIMETHOPRIM 400-80 MG TAB PO SCH ×2 (09:20→21:00)
[2016-03-29] MEDS: LANSOPRAZOLE SOLUTAB 30 MG TAB NG SCH (09:20)
[2016-03-29] MEDS: CHLORHEXIDINE GLUCONATE 0.12% 30 ML CUP MT SCH ×2 (09:20→20:00)
[2016-03-29] MEDS: LACTOBACILLUS ACIDOPHILUS TAB PO SCH ×3 (09:20→18:40)
[2016-03-29] MEDS: SODIUM CHLORIDE 0.9% FLUSH 5 ML FLUSH IVF SCH ×2 (09:20→21:00)
[2016-03-29] MEDS: predniSONE 5 MG TAB PO SCH (09:20)
[2016-03-29] MEDS: DEXT 5%-NACL 0.45% 1000 ML INJ 1,000 ML IV SCH (13:12)
--- NOTE | 2016-03-29 16:22 | HHI.PR ---
Subjective Remarks No change in clinical status. Patient is nonverbal and noninteractive. At times grimacing. Objective Vitals Vital Signs Date Time Temp Pulse Resp B/P Pulse Ox O2 Delivery O2 Flow Rate FiO2 03/29/16 12:33 97.4 83 22 89/62 98 03/29/16 09:04 95 40 03/29/16 08:04 96.5 71 22 96/65 97 03/29/16 06:58 96.6 68 20 104/65 100 03/29/16 05:48 100 40 03/29/16 01:30 97 40 03/29/16 00:32 98.3 80 20 137/72 100 03/28/16 20:38 99.5 132 23 151/79 100 03/28/16 19:50 95 40 03/28/16 19:30 96 Bi-Pap 40 03/28/16 17:15 96 40 03/28/16 16:34 98.2 91 22 110/68 96 I/O 03/28/16 03/28/16 03/28/16 03/29/16 03/29/16 03/29/16 07:00 15:00 23:00 07:00 15:00 23:00 Output Total 2350 ml 300 ml 1200 ml 500 ml Balance -2350 ml -300 ml -1200 ml -500 ml Output Urine Total 2350 ml 300 ml 1200 ml 500 ml # Bowel Movements 3 0 1 1 Result Diagram: 03/28/1635 03/28/16 0735 Objective Remarks GENERAL: Chronically ill-appearing, frail. Contracted. Trach in place. CARDIOVASCULAR: Normal rate and regular rhythm without murmurs, gallops, or rubs. RESPIRATORY: Trach in place, Tbar. Coarse breath sounds bilaterally. GASTROINTESTINAL: Abdomen soft, non-distended. Normal active bowel sounds MUSCULOSKELETAL: Extremities with evidence of contraction. No edema. NEURO: Nonverbal, noninteractive. Procedures 07/26- PEG replacement 07/29- right pigtail catheter placement for new pneumothorax A/P Problem List: (1) Sepsis ICD Code: A41.9 Status: Acute (2) HCAP (healthcare-associated pneumonia) ICD Code: J18.9 Status: Acute (3) Fever ICD Code: R50.9 Status: Resolved (4) Sepsis due to urinary tract infection ICD Code: A41.9 Status: Resolved (5) Chronic respiratory failure ICD Code: J96.10 Status: Chronic (6) Parkinson disease ICD Code: G20 Status: Chronic (7) UTI (urinary tract infection) ICD Code: N39.0 Status: Resolved (8) Encephalopathy ICD Code: G93.40 Status: Resolved (9) Feeding tube obstruction ICD Code: T85.598A Status: Resolved (10) Conjunctivitis ICD Code: H10.9 Status: Resolved (11) Hypotension ICD Code: I95.9 Status: Resolved Assessment and Plan 55-year-old male with persistent sepsis, pneumonia, respiratory failure. New Sepsis sources: Tracheobronchitis and ESBL Kleb pneumo UTI MDR PSAE tracheobronchitis. ESBL MDR Kleb pneumo Cath associated UTI. h/o Recurrent aspiration tube feed related in past. Heena Cath associated UTI - Continue cefepime. DC Zyvox per infectious disease (ASP: ESBL Kleb pneumo UTI ). Start Bactrim per ID. Chronic respiratory failure Chronic tracheostomy. Currently on continuous BiPAP. T piece off. S/P recurrent right pneumothorax status post pigtail catheter removal. - Suction secretions and Levsin as needed - Pulmonology following. Continue Solu-Medrol 40 mg IV twice a day, Mucomyst Nebs 20 % , 2 CC BID X 3 days by pulmonology. Continue with Duo nebs 4 times a day and when necessary. - Appreciate input from palliative care medicine Metabolic Encephalopathy Parkinson's disease underlying. - Continue cognitive efforts , Sinemet , s/p Zyprexa Malnutrition/protein calorie - moderate Status post PEG. - Current Colace/senna for bowel regimen. - continue PPI.- Prevacid. - 02/03: J tube replacement due to dysfunction -IR replaced J G tube on 03/17/16 -Continue current tube feed Bilateral lower extremity Contractures Stage II DU. - Wound care team following. - Continue physical therapy to help with contractures. - turn q 2 hours - Agree with palliative care medicine, he cannot communicate his pain. Will schedule Lortab every 6 hours. GI prophylaxis: PPI. Stool softener PRN constipation. DVT PPx: Lovenox Social: I have been unable to get in touch with the patient's daughter for update. Problem Qualifiers (1) Fever: Qualified Code: R50.9 - Fever, unspecified fever cause (2) Chronic respiratory failure: Qualified Code: J96.10 - Chronic respiratory failure, unspecified whether with hypoxia or hypercapnia (3) UTI (urinary tract infection): Qualified Code: N30.00 - Acute cystitis without hematuria (4) Conjunctivitis: Qualified Code: H10.9 - Conjunctivitis of left eye, unspecified conjunctivitis type Carlos Hernandez MD Mar 29, 2016 16:22
--- NOTE | 2016-03-29 19:50 | HHI.PR ---
Subjective Remarks Awake and stable 0n Bipap 8/5 cm FIO2 30 % . . On Antibiotics per ID O2 Sat 96. C XR shows no new infiltrate Objective Vital Signs Date Time Temp Pulse Resp B/P Pulse Ox O2 Delivery O2 Flow Rate FiO2 03/29/16 16:21 98.4 84 24 103/64 96 03/29/16 12:33 97.4 83 22 89/62 98 03/29/16 09:04 95 40 03/29/16 08:04 96.5 71 22 96/65 97 03/29/16 06:58 96.6 68 20 104/65 100 03/29/16 05:48 100 40 03/29/16 01:30 97 40 03/29/16 00:32 98.3 80 20 137/72 100 03/28/16 20:38 99.5 132 23 151/79 100 03/28/16 19:50 95 40 I/O 03/28/16 03/28/16 03/28/16 03/29/16 03/29/16 03/29/16 07:00 15:00 23:00 07:00 15:00 23:00 Output Total 2350 ml 300 ml 1200 ml 500 ml Balance -2350 ml -300 ml -1200 ml -500 ml Output Urine Total 2350 ml 300 ml 1200 ml 500 ml # Bowel Movements 3 0 1 1 Result Diagram: 03/28/1635 03/28/16 0735 Objective Remarks This is a thin white male who is , awake with a trach tube in place. HEENT: Pupils are equal and reactive to light. CHEST:Decreased breath sounds,with occ Basal crackles. CARDIOVASCULAR: S1 and S2 is normal.No murmur. ABDOMEN: Soft, nondistended. BS +. He has a PEG and J tube in place. EXTREMITIES: Contractures.muscle wasting.Reflexes 1 + NEURO: Awake and has weak extremities. Skin is cool , dry . Assessment and Plan Assessment and Plan IMPRESSION 1. Chronic Respiratory failure. 2. Sepsis, Aspiration. 3. Left basal Pneumonia, Resolved 4. Bi Basal pneumonia 5. Parkinson's disease 6. Dementia. 7. Severe Deconditioning. Plan : 1. Wean Bipap to 10/5 CM FIO2 30 % 2. Nebs Bid , duoneb. 3. Tube feeds at [address] on T Bar in am 40 % 5. Levsin .125 mg tid prn. 6. Cont Trach toilet and lavage. 7. Antibiotics per ID. 8. PT evaluation 1 Darren Kiser MD Mar 29, 2016 19:50
[2016-03-29] MEDS: ENOXAPARIN SODIUM 40 MG/0.4 ML SYRINGE SQ SCH (22:00)
[2016-03-29] MEDS: ACETAMINOPHEN/HYDROcodone 325 MG/5 MG TAB PO SCH (22:50)
[2016-03-30] VITALS (11 sets, daily range): BP systolic 84–112; BP diastolic 50–71; PULSE 70–130; RESP 20–35; TEMP 97.4–99.2; O2SAT 90–98
[2016-03-30] MEDS: CEFEPIME INJ 2,000 MG in SODIUM CHLORIDE 0.9% INJ 100 ML IV SCH ×2 (04:00→12:00)
[2016-03-30] MEDS: ACETAMINOPHEN/HYDROcodone 325 MG/5 MG TAB PO SCH ×4 (04:00→22:12)
[2016-03-30] MEDS: FREE WATER G-TUBE SCH ×4 (06:00→18:00)
[2016-03-30] MEDS: BETHANECHOL CHL 10 MG TAB PO SCH ×3 (06:00→22:12)
[2016-03-30] MEDS: CHLORHEXIDINE GLUCONATE 0.12% 30 ML CUP MT SCH ×2 (08:00→22:12)
[2016-03-30] MEDS: COLLAGENASE OINT 30 GM TUBE TOP SCH (09:00)
[2016-03-30] MEDS: ARTIFICIAL TEARS OPTH SOLN 15 ML BTL EACH EYE SCH ×3 (09:00→18:00)
[2016-03-30] MEDS: SULFAMETHOXAZOLE-TRIMETHOPRIM 400-80 MG TAB PO SCH ×2 (10:07→22:17)
[2016-03-30] MEDS: GABAPENTIN 300 MG CAP G-TUBE SCH ×2 (10:07→22:11)
[2016-03-30] MEDS: LACTOBACILLUS ACIDOPHILUS TAB PO SCH ×3 (10:08→18:00)
[2016-03-30] MEDS: CARBIDOPA/LEVODOPA 25 MG/100 MG TAB GT SCH ×4 (10:08→22:11)
[2016-03-30] MEDS: LANSOPRAZOLE SOLUTAB 30 MG TAB NG SCH (10:08)
[2016-03-30] MEDS: predniSONE 5 MG TAB PO SCH (10:09)
[2016-03-30] MEDS: SODIUM CHLORIDE 0.9% FLUSH 5 ML FLUSH IVF SCH ×2 (10:09→22:13)
--- NOTE | 2016-03-30 11:36 | HHI.PR ---
Subjective Remarks Discussed with RN. Lost IV access. Otherwise no change in clinical status. Objective Vitals Vital Signs Date Time Temp Pulse Resp B/P Pulse Ox O2 Delivery O2 Flow Rate FiO2 03/30/16 10:24 97 Bi-Pap 40 03/30/16 08:11 94 40 03/30/16 07:52 98.9 80 22 100/62 96 03/30/16 06:00 95 30 03/30/16 04:00 97.6 70 20 84/54 93 03/30/16 00:46 93 30 03/30/16 00:00 98.9 82 24 94/53 91 03/29/16 20:00 98.2 77 32 98/59 97 03/29/16 16:21 98.4 84 24 103/64 96 03/29/16 12:33 97.4 83 22 89/62 98 I/O 03/29/16 03/29/16 03/29/16 03/30/16 03/30/16 03/30/16 07:00 15:00 23:00 07:00 15:00 23:00 Output Total 1200 ml 500 ml 400 ml 400 ml Balance -1200 ml -500 ml -400 ml -400 ml Output Urine Total 1200 ml 500 ml 400 ml 400 ml # Bowel Movements 1 1 Result Diagram: 03/28/1635 03/28/1635 Objective Remarks GENERAL: Chronically ill-appearing, frail. Contracted. Trach in place. CARDIOVASCULAR: Normal rate and regular rhythm without murmurs, gallops, or rubs. RESPIRATORY: Trach in place. Coarse breath sounds bilaterally. GASTROINTESTINAL: Abdomen soft, non-distended. Normal active bowel sounds MUSCULOSKELETAL: Extremities with evidence of contraction. No edema. NEURO: Nonverbal, noninteractive. Procedures 07/26- PEG replacement 07/29- right pigtail catheter placement for new pneumothorax A/P Problem List: (1) Sepsis ICD Code: A41.9 Status: Acute (2) HCAP (healthcare-associated pneumonia) ICD Code: J18.9 Status: Acute (3) Fever ICD Code: R50.9 Status: Resolved (4) Sepsis due to urinary tract infection ICD Code: A41.9 Status: Resolved (5) Chronic respiratory failure ICD Code: J96.10 Status: Chronic (6) Parkinson disease ICD Code: G20 Status: Chronic (7) UTI (urinary tract infection) ICD Code: N39.0 Status: Resolved (8) Encephalopathy ICD Code: G93.40 Status: Resolved (9) Feeding tube obstruction ICD Code: T85.598A Status: Resolved (10) Conjunctivitis ICD Code: H10.9 Status: Resolved (11) Hypotension ICD Code: I95.9 Status: Resolved Assessment and Plan 55-year-old male with persistent sepsis, pneumonia, respiratory failure. New Sepsis sources: Tracheobronchitis and ESBL Kleb pneumo UTI MDR PSAE tracheobronchitis. ESBL MDR Kleb pneumo Cath associated UTI. h/o Recurrent aspiration tube feed related in past. Heena Cath associated UTI - Continue cefepime. DC Zyvox per infectious disease (ASP: ESBL Kleb pneumo UTI ). On Bactrim per ID. Chronic respiratory failure Chronic tracheostomy. Currently on continuous BiPAP. T piece off. S/P recurrent right pneumothorax status post pigtail catheter removal. - Suction secretions and Levsin as needed - Pulmonology following. Continue Solu-Medrol 40 mg IV twice a day, Mucomyst Nebs 20 % , 2 CC BID X 3 days by pulmonology. Continue with Duo nebs 4 times a day and when necessary. - Appreciate input from palliative care medicine Metabolic Encephalopathy Parkinson's disease underlying. - Continue cognitive efforts , Sinemet , s/p Zyprexa Malnutrition/protein calorie - moderate Status post PEG. - Current Colace/senna for bowel regimen. - continue PPI.- Prevacid. - 02/03: J tube replacement due to dysfunction -IR replaced J G tube on 03/17/16 -Continue current tube feed Bilateral lower extremity Contractures Stage II DU. - Wound care team following. - Continue physical therapy to help with contractures. - turn q 2 hours - Agree with palliative care medicine, he cannot communicate his pain. Continue with schedule Lortab every 6 hours. GI prophylaxis: PPI. Stool softener PRN constipation. DVT PPx: Lovenox Problem Qualifiers (1) Fever: Qualified Code: R50.9 - Fever, unspecified fever cause (2) Chronic respiratory failure: Qualified Code: J96.10 - Chronic respiratory failure, unspecified whether with hypoxia or hypercapnia (3) UTI (urinary tract infection): Qualified Code: N30.00 - Acute cystitis without hematuria (4) Conjunctivitis: Qualified Code: H10.9 - Conjunctivitis of left eye, unspecified conjunctivitis type Carlos Hernandez MD Mar 30, 2016 11:36
[2016-03-30 12:14] LABS: AUTOMATED NEUTROPHIL # 11.6 TH/MM3 (1.8-7.7); BASOPHIL % 0.2 % (0.0-2.0); EOSINOPHIL # 0.1 TH/MM3 (0-0.4); EOSINOPHIL % 1.1 % (0.0-4.0); HEMATOCRIT 34.9 % (39.0-51.0); HEMO FLAGS DIFF FINAL; LYMPH % 7.5 % (9.0-44.0); MEAN CELL VOLUME 83.1 FL (80.0-100.0); MEAN CORPUSCULAR HEMOGLOBIN 26.3 PG (27.0-34.0); MEAN CORPUSCULAR HGB CONC 31.7 % (32.0-36.0); MONO % 5.7 % (0.0-8.0); NEUT % 85.5 % (16.0-70.0); PLATELET COUNT 192 TH/MM3 (150-450); RED CELL DISTRIBUTION WIDTH 16.7 % (11.6-17.2); WHITE BLOOD COUNT 13.6 TH/MM3 (4.0-11.0)
[2016-03-30 12:39] LABS: BICARBONATE 31.5 MEQ/L (21.0-32.0); POTASSIUM 4.8 MEQ/L (3.5-5.1)
[2016-03-30] MEDS: ACETAMINOPHEN 650 MG/20.3 ML UDC TUBE PRN (13:16)
--- NOTE | 2016-03-30 18:25 | HHI.PR ---
Subjective Remarks Awake and remains stable 0n Bipap FIO2 30 % . On Antibiotics per ID O2 Sat 95. C XR stable. Objective Vital Signs Date Time Temp Pulse Resp B/P Pulse Ox O2 Delivery O2 Flow Rate FiO2 03/30/16 15:58 98.7 92 35 96/53 98 03/30/16 12:15 99.2 130 34 112/71 90 03/30/16 11:36 94 40 03/30/16 10:24 97 Bi-Pap 40 03/30/16 08:11 94 40 03/30/16 07:52 98.9 80 22 100/62 96 03/30/16 06:00 95 30 03/30/16 04:00 97.6 70 20 84/54 93 03/30/16 00:46 93 30 03/30/16 00:00 98.9 82 24 94/53 91 03/29/16 20:00 98.2 77 32 98/59 97 I/O 03/29/16 03/29/16 03/29/16 03/30/16 03/30/16 03/30/16 07:00 15:00 23:00 07:00 15:00 23:00 Output Total 1200 ml 500 ml 400 ml 400 ml 375 ml Balance -1200 ml -500 ml -400 ml -400 ml -375 ml Output Urine Total 1200 ml 500 ml 400 ml 400 ml 375 ml # Bowel Movements 1 1 1 Result Diagram: 03/30/16 1150 03/30/16 1150 Objective Remarks This is a thin white male who is , awake with a trach tube in place. HEENT: Pupils are equal and reactive to light. CHEST:Decreased breath sounds,with occ Basal crackles. CARDIOVASCULAR: S1 and S2 is normal.No murmur. ABDOMEN: Soft, nondistended. BS +. He has a PEG and J tube in place. EXTREMITIES: Contractures.muscle wasting.Reflexes 1 + NEURO: Awake and has weak extremities. Skin is dry . Assessment and Plan Assessment and Plan IMPRESSION 1. Chronic Respiratory failure. 2. Sepsis, Aspiration. 3. Left basal Pneumonia, Resolved 4. Bi Basal pneumonia 5. Parkinson's disease 6. Dementia. 7. Severe Deconditioning. Plan : 1. Wean Bipap to 10/5 CM FIO2 35 % 2. Nebs Bid , duoneb. 3. Tube feeds at [address] on T Bar in am 40 % upto 2 hrs. 5. Levsin .125 mg tid prn. 6. Cont Trach toilet and lavage. 7. Antibiotics per ID. 8. PT evaluation . 1 Darren Kiser MD Mar 30, 2016 18:25
[2016-03-30] MEDS: ENOXAPARIN SODIUM 40 MG/0.4 ML SYRINGE SQ SCH (22:18)
[2016-03-31] VITALS (11 sets, daily range): BP systolic 82–112; BP diastolic 48–90; PULSE 69–112; RESP 20–25; TEMP 96.2–100.9; O2SAT 94–100
[2016-03-31] MEDS: CEFEPIME INJ 2,000 MG in SODIUM CHLORIDE 0.9% INJ 100 ML IV SCH ×4 (00:14→19:42)
[2016-03-31] MEDS: BETHANECHOL CHL 10 MG TAB PO SCH ×3 (05:33→23:22)
[2016-03-31] MEDS: ACETAMINOPHEN 650 MG/20.3 ML UDC TUBE PRN ×2 (05:33→19:41)
[2016-03-31] MEDS: ARTIFICIAL TEARS OPTH SOLN 15 ML BTL EACH EYE SCH ×3 (09:00→17:38)
[2016-03-31] MEDS: SODIUM CHLORIDE 0.9% FLUSH 5 ML FLUSH IVF SCH ×2 (09:00→19:45)
--- NOTE | 2016-03-31 09:21 | RADRPT ---
EXAM DATE/TIME: 03/31/2016 08:59 [place] COMPARISON: CHEST SINGLE AP, March 28, 2016, 18:19. INDICATIONS : Evaluate pneumonia MEDICAL HISTORY : Diabetes mellitus type II. Respiratory failure SURGICAL HISTORY : G-tube ENCOUNTER: Subsequent ACUITY: 2 months PAIN SCORE: Non-responsive. LOCATION: Bilateral chest FINDINGS: The patient is rotated towards the left. Tracheostomy in place. No infiltrate seen in the right soraida g. There is mild prominence of the bronchopulmonary markings at the left base, small infiltrate anabelle ot be excluded. Both hemidiaphragms are well delineated. The heart size is normal when taking into account the rotation. CONCLUSION: No consolidative infiltrates seen. Some patchy areas of opacity at the left base may represent devel oping infiltrate. Recommend followup films. Tai Jaquez MD on March 31, 2016 at 9:19 Board Certified Radiologist. This report was verified electronically.
[2016-03-31 09:34] LABS: HEMATOCRIT 32.1 % (39.0-51.0); MEAN CELL VOLUME 83.3 FL (80.0-100.0); MEAN CORPUSCULAR HEMOGLOBIN 27.1 PG (27.0-34.0); MEAN CORPUSCULAR HGB CONC 32.5 % (32.0-36.0); PLATELET COUNT 169 TH/MM3 (150-450); RED BLOOD COUNT 3.85 MIL/MM3 (4.50-5.90); RED CELL DISTRIBUTION WIDTH 16.7 % (11.6-17.2); REVIEW FLAG FINAL; WHITE BLOOD COUNT 14.3 TH/MM3 (4.0-11.0)
[2016-03-31] MEDS ORDERED: SODIUM CHLOR 0.9% 1000 ML INJ 1,000 ML IV ONE (09:45)
[2016-03-31] MEDS: LANSOPRAZOLE SOLUTAB 30 MG TAB NG SCH (09:49)
[2016-03-31] MEDS: COLLAGENASE OINT 30 GM TUBE TOP SCH (09:49)
[2016-03-31] MEDS: SULFAMETHOXAZOLE-TRIMETHOPRIM 400-80 MG TAB PO SCH ×2 (09:49→19:42)
[2016-03-31] MEDS: LACTOBACILLUS ACIDOPHILUS TAB PO SCH ×3 (09:49→17:42)
[2016-03-31] MEDS: GABAPENTIN 300 MG CAP G-TUBE SCH ×2 (09:49→19:42)
[2016-03-31] MEDS: CARBIDOPA/LEVODOPA 25 MG/100 MG TAB GT SCH ×4 (09:49→19:42)
[2016-03-31] MEDS: predniSONE 5 MG TAB PO SCH (09:49)
[2016-03-31] MEDS: ACETAMINOPHEN/HYDROcodone 325 MG/5 MG TAB PO SCH ×3 (09:50→23:24)
[2016-03-31] MEDS: CHLORHEXIDINE GLUCONATE 0.12% 30 ML CUP MT SCH ×2 (09:51→19:45)
[2016-03-31 10:02] LABS: BICARBONATE 32.1 MEQ/L (21.0-32.0); POTASSIUM 4.1 MEQ/L (3.5-5.1)
[2016-03-31] MEDS: DEXT 5%-NACL 0.45% 1000 ML INJ 1,000 ML IV SCH (11:33)
[2016-03-31] MEDS: MORPHINE SULFATE 4 MG/ML INJ IV PUSH PRN ×3 (11:51→19:41)
[2016-03-31] MEDS: FREE WATER G-TUBE SCH ×3 (11:55→17:38)
[2016-03-31] MEDS: RESP: ALBUTEROL 2.5 MG/3 ML NEB (PRN) NEB ×2 (12:47→20:08)
--- NOTE | 2016-03-31 16:45 | HHI.PR ---
Subjective Remarks Patient had a fever this morning. Otherwise clinical status is unchanged. Nonverbal and noninteractive. Objective Vitals Vital Signs Date Time Temp Pulse Resp B/P Pulse Ox O2 Delivery O2 Flow Rate FiO2 03/31/16 12:53 96.2 106 20 102/67 97 03/31/16 12:48 95 40 03/31/16 11:57 98.0 112 25 112/68 94 03/31/16 09:42 96 40 03/31/16 08:43 97.7 69 20 88/51 95 03/31/16 04:00 100.9 77 24 97/50 96 03/31/16 01:41 96 40 03/31/16 00:00 98.8 76 23 88/54 96 03/30/16 21:25 97 Bi-Pap 40 03/30/16 20:57 97 40 03/30/16 20:00 97.4 94 32 105/50 96 I/O 03/30/16 03/30/16 03/30/16 03/31/16 03/31/16 03/31/16 07:00 15:00 23:00 07:00 15:00 23:00 Output Total 400 ml 375 ml 400 ml 300 ml Balance -400 ml -375 ml -400 ml -300 ml Output Urine Total 400 ml 375 ml 400 ml 300 ml # Bowel Movements 1 Result Diagram: 03/31/1691303/31/16913 Objective Remarks GENERAL: Chronically ill-appearing, frail. Contracted. Trach in place. CARDIOVASCULAR: Normal rate and regular rhythm without murmurs, gallops, or rubs. RESPIRATORY: Trach in place. Coarse breath sounds bilaterally. GASTROINTESTINAL: Abdomen soft, non-distended. Normal active bowel sounds MUSCULOSKELETAL: Extremities with evidence of contraction. No edema. NEURO: Nonverbal, noninteractive. Procedures 07/26- PEG replacement 07/29- right pigtail catheter placement for new pneumothorax A/P Problem List: (1) Sepsis ICD Code: A41.9 Status: Acute (2) HCAP (healthcare-associated pneumonia) ICD Code: J18.9 Status: Acute (3) Fever ICD Code: R50.9 Status: Resolved (4) Sepsis due to urinary tract infection ICD Code: A41.9 Status: Resolved (5) Chronic respiratory failure ICD Code: J96.10 Status: Chronic (6) Parkinson disease ICD Code: G20 Status: Chronic (7) UTI (urinary tract infection) ICD Code: N39.0 Status: Resolved (8) Encephalopathy ICD Code: G93.40 Status: Resolved (9) Feeding tube obstruction ICD Code: T85.598A Status: Resolved (10) Conjunctivitis ICD Code: H10.9 Status: Resolved (11) Hypotension ICD Code: I95.9 Status: Resolved Assessment and Plan 55-year-old male with persistent sepsis, pneumonia, respiratory failure. New Sepsis sources: Tracheobronchitis and ESBL Kleb pneumo UTI MDR PSAE tracheobronchitis. ESBL MDR Kleb pneumo Cath associated UTI. h/o Recurrent aspiration tube feed related in past. Heena Cath associated UTI - Continue cefepime. DC Zyvox per infectious disease (ASP: ESBL Kleb pneumo UTI ). On Bactrim per ID. Chronic respiratory failure Chronic tracheostomy. Currently on continuous BiPAP. T piece off. S/P recurrent right pneumothorax status post pigtail catheter removal. - Suction secretions and Levsin as needed - Pulmonology following. Continue Solu-Medrol 40 mg IV twice a day, Mucomyst Nebs 20 % , 2 CC BID X 3 days by pulmonology. Continue with Duo nebs 4 times a day and when necessary. - Appreciate input from palliative care medicine Metabolic Encephalopathy Parkinson's disease underlying. Appear to have permanent damage. - Continue Sinemet Malnutrition/protein calorie - moderate Status post PEG. - Current Colace/senna for bowel regimen. - continue PPI.- Prevacid. - 02/03: J tube replacement due to dysfunction -IR replaced J G tube on 03/17/16 -Continue current tube feed - Given a liter of IV fluid today due to insensible loss Bilateral lower extremity Contractures Stage II DU. - Wound care team following. - Continue physical therapy to help with contractures. - turn q 2 hours - Agree with palliative care medicine, he cannot communicate his pain. Continue with schedule Lortab every 6 hours. GI prophylaxis: PPI. Stool softener PRN constipation. DVT PPx: Lovenox Problem Qualifiers (1) Fever: Qualified Code: R50.9 - Fever, unspecified fever cause (2) Chronic respiratory failure: Qualified Code: J96.10 - Chronic respiratory failure, unspecified whether with hypoxia or hypercapnia (3) UTI (urinary tract infection): Qualified Code: N30.00 - Acute cystitis without hematuria (4) Conjunctivitis: Qualified Code: H10.9 - Conjunctivitis of left eye, unspecified conjunctivitis type Carlos Hernandez MD Mar 31, 2016 16:45
--- NOTE | 2016-03-31 17:56 | HHI.PR ---
Subjective Remarks Awake and remains stable 0n Bipap FIO2 40 % . Has thick trach secretions. No fever. O2 Sat 96. C XR stable. Objective Vital Signs Date Time Temp Pulse Resp B/P Pulse Ox O2 Delivery O2 Flow Rate FiO2 03/31/16 16:51 97.9 82 20 82/48 96 03/31/16 12:53 96.2 106 20 102/67 97 03/31/16 12:48 95 40 03/31/16 11:57 98.0 112 25 112/68 94 03/31/16 09:42 96 40 03/31/16 08:43 97.7 69 20 88/51 95 03/31/16 04:00 100.9 77 24 97/50 96 03/31/16 01:41 96 40 03/31/16 00:00 98.8 76 23 88/54 96 03/30/16 21:25 97 Bi-Pap 40 03/30/16 20:57 97 40 03/30/16 20:00 97.4 94 32 105/50 96 I/O 03/30/16 03/30/16 03/30/16 03/31/16 03/31/16 03/31/16 07:00 15:00 23:00 07:00 15:00 23:00 Output Total 400 ml 375 ml 400 ml 300 ml Balance -400 ml -375 ml -400 ml -300 ml Output Urine Total 400 ml 375 ml 400 ml 300 ml # Bowel Movements 1 Result Diagram: 03/31/1691303/31/16913 Objective Remarks This is a thin white male who is , awake with a trach tube in place. HEENT: Pupils are equal and reactive to light. CHEST:Decreased breath sounds,with few Basal crackles. CARDIOVASCULAR: S1 and S2 is normal.No murmur. ABDOMEN: Soft, nondistended. BS +. He has a PEG and J tube in place. EXTREMITIES: Contractures.muscle wasting.Reflexes 1 + NEURO: Awake and has weak extremities. Skin is dry . Assessment and Plan Assessment and Plan IMPRESSION 1. Chronic Respiratory failure. 2. Sepsis, Aspiration. 3. Left basal Pneumonia, Resolved 4. Bi Basal pneumonia 5. Parkinson's disease 6. Dementia. 7. Severe Deconditioning. Plan : 1. Cont Bipap at 10/5 CM FIO2 40 % 2. Nebs Bid , duoneb. 3. Tube feeds at [address] T Bar in am 40 % upto 3 hrs. 5. Levsin .125 mg tid prn. 6. Cont Trach toilet and lavage. 7. IV fluids per Dr Hernandez 8. PT evaluation . 1 Darren Kiser MD Mar 31, 2016 17:56
[2016-03-31] MEDS: ENOXAPARIN SODIUM 40 MG/0.4 ML SYRINGE SQ SCH (23:22)
[2016-04-01] VITALS (12 sets, daily range): BP systolic 96–129; BP diastolic 51–62; PULSE 53–85; RESP 20–22; TEMP 95.9–99.9; O2SAT 97–100
[2016-04-01] MEDS: FREE WATER G-TUBE SCH ×4 (00:25→17:40)
[2016-04-01] MEDS: LORazepam 2 MG/ML VIAL IVP PRN (01:56)
[2016-04-01] MEDS: CEFEPIME INJ 2,000 MG in SODIUM CHLORIDE 0.9% INJ 100 ML IV SCH ×3 (04:24→20:31)
[2016-04-01] MEDS: DEXT 5%-NACL 0.45% 1000 ML INJ 1,000 ML IV SCH ×3 (05:33→17:40)
[2016-04-01] MEDS: ACETAMINOPHEN/HYDROcodone 325 MG/5 MG TAB PO SCH ×4 (05:33→20:31)
[2016-04-01] MEDS: BETHANECHOL CHL 10 MG TAB PO SCH ×3 (05:33→20:31)
[2016-04-01 07:33] LABS: HEMATOCRIT 27.5 % (39.0-51.0); MEAN CELL VOLUME 85.3 FL (80.0-100.0); MEAN CORPUSCULAR HGB CONC 31.7 % (32.0-36.0); PLATELET COUNT 112 TH/MM3 (150-450); RED BLOOD COUNT 3.22 MIL/MM3 (4.50-5.90); RED CELL DISTRIBUTION WIDTH 16.6 % (11.6-17.2); REVIEW FLAG FINAL; WHITE BLOOD COUNT 10.5 TH/MM3 (4.0-11.0)
[2016-04-01 07:55] LABS: BICARBONATE 29.6 MEQ/L (21.0-32.0); POTASSIUM 4.3 MEQ/L (3.5-5.1)
[2016-04-01] MEDS: SODIUM CHLORIDE 0.9% FLUSH 5 ML FLUSH IVF SCH ×2 (09:00→21:31)
[2016-04-01] MEDS: LACTOBACILLUS ACIDOPHILUS TAB PO SCH ×3 (10:17→17:39)
[2016-04-01] MEDS: GABAPENTIN 300 MG CAP G-TUBE SCH ×2 (10:17→20:31)
[2016-04-01] MEDS: CARBIDOPA/LEVODOPA 25 MG/100 MG TAB GT SCH ×4 (10:17→20:30)
[2016-04-01] MEDS: LANSOPRAZOLE SOLUTAB 30 MG TAB NG SCH (10:17)
[2016-04-01] MEDS: SULFAMETHOXAZOLE-TRIMETHOPRIM 400-80 MG TAB PO SCH ×2 (10:17→20:31)
[2016-04-01] MEDS: predniSONE 5 MG TAB PO SCH (10:17)
[2016-04-01] MEDS: CHLORHEXIDINE GLUCONATE 0.12% 30 ML CUP MT SCH ×2 (10:19→20:30)
[2016-04-01] MEDS: ARTIFICIAL TEARS OPTH SOLN 15 ML BTL EACH EYE SCH ×3 (10:20→17:41)
[2016-04-01] MEDS: COLLAGENASE OINT 30 GM TUBE TOP SCH (10:20)
--- NOTE | 2016-04-01 10:50 | HHI.PR ---
Subjective Remarks Patient on a T-bar today. Appear to be stable. Otherwise no change in clinical status. Objective Vitals Vital Signs Date Time Temp Pulse Resp B/P Pulse Ox O2 Delivery O2 Flow Rate FiO2 04/01/16 09:14 99 T-piece 5.00 40 04/01/16 08:21 96.1 56 20 117/62 99 04/01/16 05:55 97.8 58 22 107/57 100 04/01/16 05:46 97 40 04/01/16 01:47 99 40 04/01/16 00:18 99.9 70 22 100/51 99 04/01/16 00:14 99.9 70 22 100/51 99 03/31/16 20:12 100.8 90 22 105/90 100 03/31/16 20:10 97 40 03/31/16 16:51 97.9 82 20 82/48 96 03/31/16 12:53 96.2 106 20 102/67 97 03/31/16 12:48 95 40 03/31/16 11:57 98.0 112 25 112/68 94 I/O 03/31/16 03/31/16 03/31/16 04/01/16 04/01/16 04/01/16 07:00 15:00 23:00 07:00 15:00 23:00 Output Total 300 ml 600 ml 150 ml Balance -300 ml -600 ml -150 ml Output Urine Total 300 ml 600 ml 150 ml # Bowel Movements 1 1 Result Diagram: 04/01/1671204/01/16712 Objective Remarks GENERAL: Chronically ill-appearing, frail. Contracted. Trach in place. CARDIOVASCULAR: Normal rate and regular rhythm without murmurs, gallops, or rubs. RESPIRATORY: Trach in place. Coarse breath sounds bilaterally. GASTROINTESTINAL: Abdomen soft, non-distended. Normal active bowel sounds MUSCULOSKELETAL: Extremities with evidence of contraction. No edema. NEURO: Nonverbal, noninteractive. Procedures 07/26- PEG replacement 07/29- right pigtail catheter placement for new pneumothorax A/P Problem List: (1) Sepsis ICD Code: A41.9 Status: Acute (2) HCAP (healthcare-associated pneumonia) ICD Code: J18.9 Status: Acute (3) Fever ICD Code: R50.9 Status: Resolved (4) Sepsis due to urinary tract infection ICD Code: A41.9 Status: Resolved (5) Chronic respiratory failure ICD Code: J96.10 Status: Chronic (6) Parkinson disease ICD Code: G20 Status: Chronic (7) UTI (urinary tract infection) ICD Code: N39.0 Status: Resolved (8) Encephalopathy ICD Code: G93.40 Status: Resolved (9) Feeding tube obstruction ICD Code: T85.598A Status: Resolved (10) Conjunctivitis ICD Code: H10.9 Status: Resolved (11) Hypotension ICD Code: I95.9 Status: Resolved Assessment and Plan 55-year-old male with persistent sepsis, pneumonia, respiratory failure. Patient is contracted and noninteractive. Poor prognosis. New Sepsis sources: Tracheobronchitis and ESBL Kleb pneumo UTI MDR PSAE tracheobronchitis. ESBL MDR Kleb pneumo Cath associated UTI. h/o Recurrent aspiration tube feed related in past. Heena Cath associated UTI - Continue cefepime. DC Zyvox per infectious disease (ASP: ESBL Kleb pneumo UTI ). On Bactrim per ID. Chronic respiratory failure Chronic tracheostomy. Currently on continuous BiPAP. T piece off. S/P recurrent right pneumothorax status post pigtail catheter removal. - Suction secretions and Levsin as needed - Pulmonology following. Continue Solu-Medrol 40 mg IV twice a day, Mucomyst Nebs 20 % , 2 CC BID X 3 days by pulmonology. Continue with Duo nebs 4 times a day and when necessary. - Appreciate input from palliative care medicine Metabolic Encephalopathy Parkinson's disease underlying. Appear to have permanent damage. - Continue Sinemet Malnutrition/protein calorie - moderate Status post PEG. - Current Colace/senna for bowel regimen. - continue PPI.- Prevacid. - 02/03: J tube replacement due to dysfunction -IR replaced J G tube on 03/17/16 -Continue current tube feed - Given a liter of IV fluid today due to insensible loss Bilateral lower extremity Contractures Stage II DU. - Wound care team following. - Continue physical therapy to help with contractures. - turn q 2 hours - Agree with palliative care medicine, he cannot communicate his pain. Continue with schedule Lortab every 6 hours. GI prophylaxis: PPI. Stool softener PRN constipation. DVT PPx: Lovenox Problem Qualifiers (1) Fever: Qualified Code: R50.9 - Fever, unspecified fever cause (2) Chronic respiratory failure: Qualified Code: J96.10 - Chronic respiratory failure, unspecified whether with hypoxia or hypercapnia (3) UTI (urinary tract infection): Qualified Code: N30.00 - Acute cystitis without hematuria (4) Conjunctivitis: Qualified Code: H10.9 - Conjunctivitis of left eye, unspecified conjunctivitis type Carlos Hernandez MD Apr 01, 2016 10:50
--- NOTE | 2016-04-01 20:04 | HHI.PR ---
Subjective Remarks Awake and remains stable 0n T Bar at FIO2 40 % . Has mild trach secretions. No fever. O2 Sat 98 Objective Vital Signs Date Time Temp Pulse Resp B/P Pulse Ox O2 Delivery O2 Flow Rate FiO2 04/01/16 16:04 97.1 53 22 129/60 97 04/01/16 12:22 95.9 66 20 96/53 100 04/01/16 09:14 99 T-piece 5.00 40 04/01/16 08:21 96.1 56 20 117/62 99 04/01/16 05:55 97.8 58 22 107/57 100 04/01/16 05:46 97 40 04/01/16 01:47 99 40 04/01/16 00:18 99.9 70 22 100/51 99 04/01/16 00:14 99.9 70 22 100/51 99 03/31/16 20:12 100.8 90 22 105/90 100 03/31/16 20:10 97 40 I/O 03/31/16 03/31/16 03/31/16 04/01/16 04/01/16 04/01/16 07:00 15:00 23:00 07:00 15:00 23:00 Output Total 300 ml 600 ml 150 ml 750 ml Balance -300 ml -600 ml -150 ml -750 ml Output Urine Total 300 ml 600 ml 150 ml 750 ml # Bowel Movements 1 1 0 Result Diagram: 04/01/1671204/01/16712 Objective Remarks This is a thin white male who is , awake with a trach tube in place. HEENT: Pupils are equal and reactive to light. CHEST:Decreased breath sounds,with few wheezes and Basal crackles. CARDIOVASCULAR: S1 and S2 is normal.No murmur. ABDOMEN: Soft, nondistended. BS +. He has a PEG and J tube in place. EXTREMITIES: Contractures.muscle wasting.Reflexes 1 + NEURO: Awake and has weak extremities. Skin is dry . Assessment and Plan Assessment and Plan IMPRESSION 1. Chronic Respiratory failure. 2. Sepsis, Aspiration. 3. Left basal Pneumonia, Resolved 4. Bi Basal pneumonia 5. Parkinson's disease 6. Dementia. 7. Severe Deconditioning. Plan : 1. Cont Bipap at 10/5 CM FIO2 40 % 2. Nebs Bid , duoneb. 3. Tube feeds at [address] T Bar in am 40 % upto 10 hrs. 5. Levsin .125 mg tid prn. 6. Cont Trach toilet and lavage. 7. D/C IV fluids per Dr Hernandez 8. PT evaluation . 1 Darren Kiser MD Apr 01, 2016 20:04
[2016-04-01] MEDS: ENOXAPARIN SODIUM 40 MG/0.4 ML SYRINGE SQ SCH (20:31)
[2016-04-02] VITALS (9 sets, daily range): BP systolic 97–121; BP diastolic 37–72; PULSE 66–85; RESP 21–23; TEMP 98–99.9; O2SAT 93–100
[2016-04-02] MEDS: CEFEPIME INJ 2,000 MG in SODIUM CHLORIDE 0.9% INJ 100 ML IV SCH ×3 (04:07→23:48)
[2016-04-02] MEDS: ACETAMINOPHEN/HYDROcodone 325 MG/5 MG TAB PO SCH ×4 (04:14→23:50)
[2016-04-02] MEDS: BETHANECHOL CHL 10 MG TAB PO SCH ×3 (06:15→23:50)
[2016-04-02 07:15] LABS: MEAN CELL VOLUME 84.5 FL (80.0-100.0); MEAN CORPUSCULAR HEMOGLOBIN 26.5 PG (27.0-34.0); MEAN CORPUSCULAR HGB CONC 31.3 % (32.0-36.0); PLATELET COUNT 138 TH/MM3 (150-450); RED CELL DISTRIBUTION WIDTH 16.5 % (11.6-17.2); REVIEW FLAG FINAL; WHITE BLOOD COUNT 12.2 TH/MM3 (4.0-11.0)
[2016-04-02 07:47] LABS: BICARBONATE 30.5 MEQ/L (21.0-32.0); POTASSIUM 4.7 MEQ/L (3.5-5.1)
[2016-04-02] MEDS: COLLAGENASE OINT 30 GM TUBE TOP SCH (09:00)
[2016-04-02] MEDS: LACTOBACILLUS ACIDOPHILUS TAB PO SCH ×3 (10:58→16:58)
[2016-04-02] MEDS: CARBIDOPA/LEVODOPA 25 MG/100 MG TAB GT SCH ×4 (10:58→23:50)
[2016-04-02] MEDS: LANSOPRAZOLE SOLUTAB 30 MG TAB NG SCH (10:59)
[2016-04-02] MEDS: GABAPENTIN 300 MG CAP G-TUBE SCH ×2 (10:59→23:50)
[2016-04-02] MEDS: predniSONE 5 MG TAB PO SCH (10:59)
[2016-04-02] MEDS: SULFAMETHOXAZOLE-TRIMETHOPRIM 400-80 MG TAB PO SCH ×2 (10:59→23:50)
[2016-04-02] MEDS: CHLORHEXIDINE GLUCONATE 0.12% 30 ML CUP MT SCH ×2 (10:59→23:50)
[2016-04-02] MEDS: FREE WATER G-TUBE SCH ×4 (11:00→23:51)
[2016-04-02] MEDS: ARTIFICIAL TEARS OPTH SOLN 15 ML BTL EACH EYE SCH ×3 (11:00→16:59)
[2016-04-02] MEDS: SODIUM CHLORIDE 0.9% FLUSH 5 ML FLUSH IVF SCH ×2 (11:01→23:50)
--- NOTE | 2016-04-02 15:37 | HHI.PR ---
Subjective Remarks Low grade fever. No change in clinical status. Contracted. Non interactive. Objective Vitals Vital Signs Date Time Temp Pulse Resp B/P Pulse Ox O2 Delivery O2 Flow Rate FiO2 04/02/16 12:00 99.9 85 21 107/49 99 04/02/16 11:17 99 Bi-Pap 40 04/02/16 08:15 98 T-piece 6.00 35 04/02/16 08:00 99.0 68 21 111/57 100 04/02/16 05:59 97 40 04/02/16 03:20 98.3 66 22 108/64 97 04/02/16 02:54 97 40 04/02/16 00:31 99.0 69 22 97/37 99 04/01/16 23:50 98 BiPAP 04/01/16 23:40 98 40 04/01/16 20:45 99 Bi-Pap 40 04/01/16 20:14 99.1 85 22 119/62 98 04/01/16 16:04 97.1 53 22 129/60 97 I/O 04/01/16 04/01/16 04/01/16 04/02/16 04/02/16 04/02/16 07:00 15:00 23:00 07:00 15:00 23:00 Output Total 150 ml 1250 ml 750 ml Balance -150 ml -1250 ml -750 ml Output Urine Total 150 ml 1250 ml 750 ml # Bowel Movements 1 0 Result Diagram: 04/02/16 0700 04/02/16 0700 Objective Remarks GENERAL: Chronically ill-appearing, frail. Contracted. Trach in place. CARDIOVASCULAR: Normal rate and regular rhythm without murmurs, gallops, or rubs. RESPIRATORY: Trach in place. Coarse breath sounds bilaterally. GASTROINTESTINAL: Abdomen soft, non-distended. Normal active bowel sounds MUSCULOSKELETAL: Extremities with evidence of contraction. No edema. NEURO: Nonverbal, noninteractive. Procedures 07/26- PEG replacement 07/29- right pigtail catheter placement for new pneumothorax A/P Problem List: (1) Sepsis ICD Code: A41.9 Status: Acute (2) HCAP (healthcare-associated pneumonia) ICD Code: J18.9 Status: Acute (3) Fever ICD Code: R50.9 Status: Resolved (4) Sepsis due to urinary tract infection ICD Code: A41.9 Status: Resolved (5) Chronic respiratory failure ICD Code: J96.10 Status: Chronic (6) Parkinson disease ICD Code: G20 Status: Chronic (7) UTI (urinary tract infection) ICD Code: N39.0 Status: Resolved (8) Encephalopathy ICD Code: G93.40 Status: Resolved (9) Feeding tube obstruction ICD Code: T85.598A Status: Resolved (10) Conjunctivitis ICD Code: H10.9 Status: Resolved (11) Hypotension ICD Code: I95.9 Status: Resolved Assessment and Plan 55-year-old male with persistent sepsis, pneumonia, respiratory failure. Patient is contracted and noninteractive. Poor prognosis. I have not been able to get in touch with the patient's daughter. New Sepsis sources: Tracheobronchitis and ESBL Kleb pneumo UTI MDR PSAE tracheobronchitis. ESBL MDR Kleb pneumo Cath associated UTI. h/o Recurrent aspiration tube feed related in past. Heena Cath associated UTI - Continue cefepime. DC Zyvox per infectious disease (ASP: ESBL Kleb pneumo UTI ). On Bactrim per ID. Chronic respiratory failure Chronic tracheostomy. Currently on continuous BiPAP. T piece off. S/P recurrent right pneumothorax status post pigtail catheter removal. - Suction secretions and Levsin as needed - Pulmonology following. Continue Solu-Medrol 40 mg IV twice a day, Mucomyst Nebs 20 % , 2 CC BID X 3 days by pulmonology. Continue with Duo nebs 4 times a day and when necessary. - Appreciate input from palliative care medicine Metabolic Encephalopathy Parkinson's disease underlying. Appear to have permanent damage. - Continue Sinemet Malnutrition/protein calorie - moderate Status post PEG. - Current Colace/senna for bowel regimen. - continue PPI.- Prevacid. - 02/03: J tube replacement due to dysfunction -IR replaced J G tube on 03/17/16 -Continue current tube feed - Given a liter of IV fluid today due to insensible loss Bilateral lower extremity Contractures Stage II DU. - Wound care team following. - Continue physical therapy to help with contractures. - turn q 2 hours - Agree with palliative care medicine, he cannot communicate his pain. Continue with schedule Lortab every 6 hours. GI prophylaxis: PPI. Stool softener PRN constipation. DVT PPx: Lovenox Problem Qualifiers (1) Fever: Qualified Code: R50.9 - Fever, unspecified fever cause (2) Chronic respiratory failure: Qualified Code: J96.10 - Chronic respiratory failure, unspecified whether with hypoxia or hypercapnia (3) UTI (urinary tract infection): Qualified Code: N30.00 - Acute cystitis without hematuria (4) Conjunctivitis: Qualified Code: H10.9 - Conjunctivitis of left eye, unspecified conjunctivitis type Carlos Hernandez MD Apr 02, 2016 15:37
[2016-04-02] MEDS: DEXT 5%-NACL 0.45% 1000 ML INJ 1,000 ML IV SCH (16:59)
--- NOTE | 2016-04-02 18:13 | HHI.PR ---
Subjective Remarks Awake and remains stable 0n T Bar at FIO2 40 % . Seems more alert. No fever. O2 Sat 98 Objective Vital Signs Date Time Temp Pulse Resp B/P Pulse Ox O2 Delivery O2 Flow Rate FiO2 04/02/16 16:00 98.2 71 23 106/60 98 04/02/16 12:00 99.9 85 21 107/49 99 04/02/16 11:17 99 Bi-Pap 40 04/02/16 08:15 98 T-piece 6.00 35 04/02/16 08:00 99.0 68 21 111/57 100 04/02/16 05:59 97 40 04/02/16 03:20 98.3 66 22 108/64 97 04/02/16 02:54 97 40 04/02/16 00:31 99.0 69 22 97/37 99 04/01/16 23:50 98 BiPAP 04/01/16 23:40 98 40 04/01/16 20:45 99 Bi-Pap 40 04/01/16 20:14 99.1 85 22 119/62 98 I/O 04/01/16 04/01/16 04/01/16 04/02/16 04/02/16 04/02/16 07:00 15:00 23:00 07:00 15:00 23:00 Output Total 150 ml 1250 ml 750 ml 426 ml Balance -150 ml -1250 ml -750 ml -426 ml Output Urine Total 150 ml 1250 ml 750 ml 425 ml Stool Total 1 ml # Bowel Movements 1 0 Result Diagram: 04/02/16 0700 04/02/16 0700 Objective Remarks This is a thin white male who is , awake with a trach tube in place. HEENT: Pupils are equal and reactive to light. CHEST:Decreased breath sounds,with few wheezes and Basal crackles. CARDIOVASCULAR: S1 and S2 is normal.No murmur. ABDOMEN: Soft, nondistended. BS +. He has a PEG and J tube in place. EXTREMITIES: Contractures.muscle wasting.Reflexes 1 + NEURO: Awake and has weak extremities. Skin is dry . Assessment and Plan Assessment and Plan IMPRESSION 1. Chronic Respiratory failure. 2. Sepsis, Aspiration. 3. Left basal Pneumonia, Resolved 4. Bi Basal pneumonia 5. Parkinson's disease 6. Dementia. 7. Severe Deconditioning. Plan : 1. Cont Bipap at 10/5 CM FIO2 30 % from 9 pm to 7 am 2. Nebs Bid , duoneb. 3. Tube feeds at [address] T Bar in am 40 % upto 14 hrs. 5. Levsin .125 mg tid prn. 6. Cont Trach toilet and lavage. 7. BMP 8. PT evaluation . 1 aDrren Kiser MD Apr 02, 2016 18:13
[2016-04-02] MEDS: ENOXAPARIN SODIUM 40 MG/0.4 ML SYRINGE SQ SCH (23:51)
[2016-04-03] VITALS (10 sets, daily range): BP systolic 110–131; BP diastolic 55–70; PULSE 70–87; RESP 20–26; TEMP 98–99.2; O2SAT 92–99
[2016-04-03] MEDS: FREE WATER G-TUBE SCH ×4 (05:28→23:18)
[2016-04-03] MEDS: CEFEPIME INJ 2,000 MG in SODIUM CHLORIDE 0.9% INJ 100 ML IV SCH ×3 (05:28→23:17)
[2016-04-03] MEDS: BETHANECHOL CHL 10 MG TAB PO SCH ×3 (05:28→23:16)
[2016-04-03] MEDS: ACETAMINOPHEN/HYDROcodone 325 MG/5 MG TAB PO SCH ×4 (05:28→23:17)
[2016-04-03] MEDS: CHLORHEXIDINE GLUCONATE 0.12% 30 ML CUP MT SCH ×2 (10:17→20:00)
[2016-04-03] MEDS: SULFAMETHOXAZOLE-TRIMETHOPRIM 400-80 MG TAB PO SCH ×2 (10:17→23:16)
[2016-04-03] MEDS: LACTOBACILLUS ACIDOPHILUS TAB PO SCH ×3 (10:17→17:18)
[2016-04-03] MEDS: CARBIDOPA/LEVODOPA 25 MG/100 MG TAB GT SCH ×4 (10:17→23:16)
[2016-04-03] MEDS: SODIUM CHLORIDE 0.9% FLUSH 5 ML FLUSH IVF SCH ×2 (10:18→23:18)
[2016-04-03] MEDS: LANSOPRAZOLE SOLUTAB 30 MG TAB NG SCH (10:18)
[2016-04-03] MEDS: GABAPENTIN 300 MG CAP G-TUBE SCH ×2 (10:18→23:17)
[2016-04-03] MEDS: ARTIFICIAL TEARS OPTH SOLN 15 ML BTL EACH EYE SCH ×3 (10:18→17:18)
[2016-04-03] MEDS: predniSONE 5 MG TAB PO SCH (10:18)
[2016-04-03] MEDS: COLLAGENASE OINT 30 GM TUBE TOP SCH (10:19)
--- NOTE | 2016-04-03 14:20 | HHI.PR ---
Subjective Remarks No change in critical status. No acute events overnight. Objective Vitals Vital Signs Date Time Temp Pulse Resp B/P Pulse Ox O2 Delivery O2 Flow Rate FiO2 04/03/16 12:00 98.2 73 20 110/55 97 04/03/16 11:53 20 04/03/16 08:44 96 T-piece 6.00 35 04/03/16 08:00 98.0 83 26 131/64 97 04/03/16 07:41 97 Trach Collar 35 04/03/16 05:45 98 50 04/03/16 04:35 98.3 71 22 116/70 94 04/03/16 01:00 99 50 04/03/16 00:24 98.1 70 22 120/68 94 04/02/16 21:30 97 Bi-Pap 40 04/02/16 20:45 98.0 68 22 121/72 93 04/02/16 16:00 98.2 71 23 106/60 98 I/O 04/02/16 04/02/16 04/02/16 04/03/16 04/03/16 04/03/16 07:00 15:00 23:00 07:00 15:00 23:00 Intake Total 200 ml Output Total 750 ml 426 ml 250 ml 300 ml Balance -750 ml -426 ml -250 ml -100 ml Tube Irrigant 200 ml Output Urine Total 750 ml 425 ml 250 ml 300 ml Stool Total 1 ml # Bowel Movements 2 Result Diagram: 04/02/16 0700 04/02/16 0700 Objective Remarks GENERAL: Chronically ill-appearing, frail. Contracted. Trach in place. CARDIOVASCULAR: Normal rate and regular rhythm without murmurs, gallops, or rubs. RESPIRATORY: Trach in place. Coarse breath sounds bilaterally. Some upper airway transmission sounds. GASTROINTESTINAL: Abdomen soft, non-distended. Normal active bowel sounds MUSCULOSKELETAL: Extremities with evidence of contraction. No edema. NEURO: Nonverbal, noninteractive. Procedures 07/26- PEG replacement 07/29- right pigtail catheter placement for new pneumothorax A/P Problem List: (1) Sepsis ICD Code: A41.9 Status: Acute (2) HCAP (healthcare-associated pneumonia) ICD Code: J18.9 Status: Acute (3) Fever ICD Code: R50.9 Status: Resolved (4) Sepsis due to urinary tract infection ICD Code: A41.9 Status: Resolved (5) Chronic respiratory failure ICD Code: J96.10 Status: Chronic (6) Parkinson disease ICD Code: G20 Status: Chronic (7) UTI (urinary tract infection) ICD Code: N39.0 Status: Resolved (8) Encephalopathy ICD Code: G93.40 Status: Resolved (9) Feeding tube obstruction ICD Code: T85.598A Status: Resolved (10) Conjunctivitis ICD Code: H10.9 Status: Resolved (11) Hypotension ICD Code: I95.9 Status: Resolved Assessment and Plan 55-year-old male with persistent sepsis, pneumonia, respiratory failure. Patient is contracted and noninteractive. Poor prognosis. I have not been able to get in touch with the patient's daughter. I have left messages with no return calls. Appreciate palliative care following. New Sepsis sources: Tracheobronchitis and ESBL Kleb pneumo UTI MDR PSAE tracheobronchitis. ESBL MDR Kleb pneumo Cath associated UTI. h/o Recurrent aspiration tube feed related in past. Heena Cath associated UTI - Continue cefepime. DC Zyvox per infectious disease (ASP: ESBL Kleb pneumo UTI ). On Bactrim per ID. Chronic respiratory failure Chronic tracheostomy. Currently on continuous BiPAP. T piece off. S/P recurrent right pneumothorax status post pigtail catheter removal. - Suction secretions and Levsin as needed - Pulmonology following. On prednisone. Continue with Duo nebs 4 times a day and when necessary. - Appreciate input from palliative care medicine Metabolic Encephalopathy Parkinson's disease underlying. Appear to have permanent damage. - Continue Sinemet Malnutrition/protein calorie - moderate Status post PEG. - Current Colace/senna for bowel regimen. - continue PPI.- Prevacid. - 02/03: J tube replacement due to dysfunction -IR replaced J G tube on 03/17/16 -Continue current tube feed - Given a liter of IV fluid today due to insensible loss Bilateral lower extremity Contractures Stage II DU. - Wound care team following. - Continue physical therapy to help with contractures. - turn q 2 hours - Agree with palliative care medicine, he cannot communicate his pain. Continue with schedule Lortab every 6 hours. GI prophylaxis: PPI. Stool softener PRN constipation. DVT PPx: Lovenox Problem Qualifiers (1) Fever: Qualified Code: R50.9 - Fever, unspecified fever cause (2) Chronic respiratory failure: Qualified Code: J96.10 - Chronic respiratory failure, unspecified whether with hypoxia or hypercapnia (3) UTI (urinary tract infection): Qualified Code: N30.00 - Acute cystitis without hematuria (4) Conjunctivitis: Qualified Code: H10.9 - Conjunctivitis of left eye, unspecified conjunctivitis type Carlos Hernandez MD Apr 03, 2016 14:20
[2016-04-03] MEDS: DEXT 5%-NACL 0.45% 1000 ML INJ 1,000 ML IV SCH (17:18)
[2016-04-03] MEDS: ENOXAPARIN SODIUM 40 MG/0.4 ML SYRINGE SQ SCH (23:18)
[2016-04-04] VITALS (9 sets, daily range): BP systolic 100–121; BP diastolic 55–79; PULSE 62–84; RESP 20–28; TEMP 96–98; O2SAT 91–100
[2016-04-04] MEDS: BETHANECHOL CHL 10 MG TAB PO SCH ×3 (05:14→23:29)
[2016-04-04] MEDS: ACETAMINOPHEN/HYDROcodone 325 MG/5 MG TAB PO SCH ×4 (05:14→23:29)
[2016-04-04] MEDS: CEFEPIME INJ 2,000 MG in SODIUM CHLORIDE 0.9% INJ 100 ML IV SCH ×3 (05:14→23:31)
[2016-04-04] MEDS: FREE WATER G-TUBE SCH ×4 (05:14→23:31)
[2016-04-04] MEDS: LACTOBACILLUS ACIDOPHILUS TAB PO SCH ×3 (09:00→16:40)
[2016-04-04] MEDS: COLLAGENASE OINT 30 GM TUBE TOP SCH (09:00)
[2016-04-04] MEDS: LANSOPRAZOLE SOLUTAB 30 MG TAB NG SCH (10:22)
[2016-04-04] MEDS: ARTIFICIAL TEARS OPTH SOLN 15 ML BTL EACH EYE SCH ×3 (10:22→16:43)
[2016-04-04] MEDS: GABAPENTIN 300 MG CAP G-TUBE SCH ×2 (10:22→23:31)
[2016-04-04] MEDS: predniSONE 5 MG TAB PO SCH (10:22)
[2016-04-04] MEDS: CARBIDOPA/LEVODOPA 25 MG/100 MG TAB GT SCH ×4 (10:22→23:29)
[2016-04-04] MEDS: CHLORHEXIDINE GLUCONATE 0.12% 30 ML CUP MT SCH ×2 (10:23→23:30)
[2016-04-04] MEDS: SODIUM CHLORIDE 0.9% FLUSH 5 ML FLUSH IVF SCH ×2 (10:23→23:30)
[2016-04-04] MEDS: SULFAMETHOXAZOLE-TRIMETHOPRIM 400-80 MG TAB PO SCH ×2 (10:24→23:29)
--- NOTE | 2016-04-04 13:10 | HHI.PR ---
Subjective Remarks Patient clinical status is unchanged. Non-interactive and contracted. Currently on T piece. Objective Vitals Vital Signs Date Time Temp Pulse Resp B/P Pulse Ox O2 Delivery O2 Flow Rate FiO2 04/04/16 12:00 96.4 65 22 113/67 100 04/04/16 08:00 97.3 62 20 106/55 99 04/04/16 07:49 97 T-piece 50 04/04/16 04:18 98.0 73 22 121/69 96 04/04/16 01:41 97 50 04/04/16 01:41 97 BiPAP 50 04/04/16 00:00 97.9 84 22 120/58 93 04/03/16 21:30 98 50 04/03/16 21:01 98.2 86 22 124/58 92 04/03/16 20:00 93 Bi-Pap 40 04/03/16 18:18 24 04/03/16 16:00 99.2 87 26 126/55 94 I/O 04/03/16 04/03/16 04/03/16 04/04/16 04/04/16 04/04/16 07:00 15:00 23:00 07:00 15:00 23:00 Intake Total 200 ml 898 ml 200 ml Output Total 300 ml 475 ml 150 ml 600 ml Balance -100 ml -475 ml 748 ml -400 ml Tube Feeding 898 ml Tube Irrigant 200 ml 200 ml Output Urine Total 300 ml 475 ml 150 ml 600 ml # Bowel Movements 2 1 1 Result Diagram: 04/02/16 0700 04/02/16 0700 Objective Remarks GENERAL: Chronically ill-appearing, frail. Contracted. Trach in place. CARDIOVASCULAR: Normal rate and regular rhythm without murmurs, gallops, or rubs. RESPIRATORY: Trach in place. Coarse breath sounds bilaterally. Some upper airway transmission sounds. GASTROINTESTINAL: Abdomen soft, non-distended. Normal active bowel sounds MUSCULOSKELETAL: Extremities with evidence of contraction. No edema. NEURO: Nonverbal, noninteractive. Procedures 07/26- PEG replacement 07/29- right pigtail catheter placement for new pneumothorax A/P Problem List: (1) Sepsis ICD Code: A41.9 Status: Acute (2) HCAP (healthcare-associated pneumonia) ICD Code: J18.9 Status: Acute (3) Fever ICD Code: R50.9 Status: Resolved (4) Sepsis due to urinary tract infection ICD Code: A41.9 Status: Resolved (5) Chronic respiratory failure ICD Code: J96.10 Status: Chronic (6) Parkinson disease ICD Code: G20 Status: Chronic (7) UTI (urinary tract infection) ICD Code: N39.0 Status: Resolved (8) Encephalopathy ICD Code: G93.40 Status: Resolved (9) Feeding tube obstruction ICD Code: T85.598A Status: Resolved (10) Conjunctivitis ICD Code: H10.9 Status: Resolved (11) Hypotension ICD Code: I95.9 Status: Resolved Assessment and Plan 55-year-old male with persistent sepsis, pneumonia, respiratory failure. Patient is contracted and noninteractive. Poor prognosis. I have not been able to get in touch with the patient's daughter. I have left messages with no return calls. Appreciate palliative care following. New Sepsis sources: Tracheobronchitis and ESBL Kleb pneumo UTI MDR PSAE tracheobronchitis. ESBL MDR Kleb pneumo Cath associated UTI. h/o Recurrent aspiration tube feed related in past. Heena Cath associated UTI - Continue cefepime. DC Zyvox per infectious disease (ASP: ESBL Kleb pneumo UTI ). On Bactrim per ID. Chronic respiratory failure Chronic tracheostomy. Currently on continuous BiPAP. T piece off. S/P recurrent right pneumothorax status post pigtail catheter removal. - Suction and Levsin as needed - On prednisone taper per pulmonology. Continue with Duo nebs 4 times a day and when necessary. - Appreciate input from palliative care medicine Metabolic Encephalopathy Parkinson's disease underlying. Appear to have permanent damage. - Continue Sinemet Malnutrition/protein calorie - moderate Status post PEG. - Current Colace/senna for bowel regimen. - continue PPI.- Prevacid. - 02/03: J tube replacement due to dysfunction -IR replaced J G tube on 03/17/16 -Continue current tube feed - Given a liter of IV fluid today due to insensible loss Bilateral lower extremity Contractures Stage II DU. - Wound care team following. - Continue physical therapy to help with contractures. - turn q 2 hours - Agree with palliative care medicine, he cannot communicate his pain. Continue with schedule Lortab every 6 hours. GI prophylaxis: PPI. Stool softener PRN constipation. DVT PPx: Lovenox Problem Qualifiers (1) Fever: Qualified Code: R50.9 - Fever, unspecified fever cause (2) Chronic respiratory failure: Qualified Code: J96.10 - Chronic respiratory failure, unspecified whether with hypoxia or hypercapnia (3) UTI (urinary tract infection): Qualified Code: N30.00 - Acute cystitis without hematuria (4) Conjunctivitis: Qualified Code: H10.9 - Conjunctivitis of left eye, unspecified conjunctivitis type Carlos Hernandez MD Apr 04, 2016 13:09
[2016-04-04] MEDS: DEXT 5%-NACL 0.45% 1000 ML INJ 1,000 ML IV SCH (16:45)
[2016-04-04] MEDS: ENOXAPARIN SODIUM 40 MG/0.4 ML SYRINGE SQ SCH (23:30)
[2016-04-05] VITALS (10 sets, daily range): BP systolic 99–152; BP diastolic 53–85; PULSE 69–100; RESP 20–28; TEMP 97.3–99.8; O2SAT 92–100
[2016-04-05] MEDS: ACETAMINOPHEN/HYDROcodone 325 MG/5 MG TAB PO SCH ×4 (04:19→22:44)
[2016-04-05] MEDS: CEFEPIME INJ 2,000 MG in SODIUM CHLORIDE 0.9% INJ 100 ML IV SCH ×3 (04:20→22:48)
[2016-04-05] MEDS: DEXT 5%-NACL 0.45% 1000 ML INJ 1,000 ML IV SCH (04:44)
[2016-04-05] MEDS: FREE WATER G-TUBE SCH ×4 (06:00→23:55)
[2016-04-05] MEDS: BETHANECHOL CHL 10 MG TAB PO SCH ×3 (06:10→22:44)
[2016-04-05 07:57] LABS: HEMATOCRIT 31.5 % (39.0-51.0); MEAN CORPUSCULAR HEMOGLOBIN 26.6 PG (27.0-34.0); MEAN CORPUSCULAR HGB CONC 31.3 % (32.0-36.0); PLATELET COUNT 189 TH/MM3 (150-450); RED BLOOD COUNT 3.71 MIL/MM3 (4.50-5.90); RED CELL DISTRIBUTION WIDTH 17.9 % (11.6-17.2); REVIEW FLAG FINAL; WHITE BLOOD COUNT 13.4 TH/MM3 (4.0-11.0)
[2016-04-05 08:21] LABS: BICARBONATE 32.8 MEQ/L (21.0-32.0); POTASSIUM 4.6 MEQ/L (3.5-5.1)
[2016-04-05] MEDS: SODIUM CHLORIDE 0.9% FLUSH 5 ML FLUSH IVF SCH ×2 (09:00→22:45)
[2016-04-05] MEDS: SULFAMETHOXAZOLE-TRIMETHOPRIM 400-80 MG TAB PO SCH ×2 (09:41→22:45)
[2016-04-05] MEDS: GABAPENTIN 300 MG CAP G-TUBE SCH ×2 (09:41→22:44)
[2016-04-05] MEDS: CARBIDOPA/LEVODOPA 25 MG/100 MG TAB GT SCH ×4 (09:41→22:44)
[2016-04-05] MEDS: predniSONE 5 MG TAB PO SCH (09:41)
[2016-04-05] MEDS: CHLORHEXIDINE GLUCONATE 0.12% 30 ML CUP MT SCH ×2 (09:42→22:49)
[2016-04-05] MEDS: LANSOPRAZOLE SOLUTAB 30 MG TAB NG SCH (09:42)
[2016-04-05] MEDS: ARTIFICIAL TEARS OPTH SOLN 15 ML BTL EACH EYE SCH ×3 (09:42→18:11)
[2016-04-05] MEDS: LACTOBACILLUS ACIDOPHILUS TAB PO SCH ×3 (09:42→18:12)
[2016-04-05] MEDS: COLLAGENASE OINT 30 GM TUBE TOP SCH (09:43)
--- NOTE | 2016-04-05 11:45 | HHI.PR ---
Subjective Remarks The patient appeared uncomfortable. He was not alert or responding to commands. He was sweating profusely. Objective Vitals Vital Signs Date Time Temp Pulse Resp B/P Pulse Ox O2 Delivery O2 Flow Rate FiO2 04/05/16 08:29 98 T-piece 50 04/05/16 08:00 99.2 91 24 104/53 100 04/05/16 05:41 18 04/05/16 04:34 98 50 04/05/16 04:14 98 Bi-Pap 40 04/05/16 04:00 98.9 100 28 135/71 92 04/05/16 01:13 98 50 04/05/16 00:51 99.8 92 28 127/75 92 04/04/16 20:30 100 50 04/04/16 20:00 96.5 80 28 118/79 91 04/04/16 16:00 96.0 66 24 100/60 100 04/04/16 12:00 96.4 65 22 113/67 100 I/O 04/04/16 04/04/16 04/04/16 04/05/16 04/05/16 04/05/16 07:00 15:00 23:00 07:00 15:00 23:00 Intake Total 200 ml 1389 ml Output Total 600 ml 700 ml 600 ml 300 ml Balance -400 ml -700 ml -600 ml 1089 ml Tube Feeding 989 ml Tube Irrigant 200 ml Other 400 ml Output Urine Total 600 ml 700 ml 600 ml 300 ml # Bowel Movements 1 0 Result Diagram: 04/05/16 0725 04/05/16 0725 Imaging Last Impressions Chest X-Ray 03/31/16 0000 Signed Impressions: Service Date/Time: March 08:59 - CONCLUSION: No consolidative infiltrates seen. Some patchy areas of opacity at the left base may represent developing infiltrate. Recommend followup films. Tai Jaquez MD Tube Change 03/17/16 1051 Signed Impressions: Service Date/Time: March 16:28 - CONCLUSION: Uncomplicated gastrojejunostomy tube exchange as above. John Anderson MD Tube Check 02/12/16 0000 Signed Impressions: Service Date/Time: Friday, February 12, 2016 16:08 - CONCLUSION: Uncomplicated tube injection as above. Blaine Jackson MD Gastrostomy Tube Change 01/15/16 0000 Signed Impressions: Service Date/Time: Friday, January 15, 2016 12:28 - CONCLUSION: Successful GJ tube exchange as above. Scott Goode MD Abdomen X-Ray 01/12/16 1628 Signed Impressions: Service Date/Time: Tuesday, January 12, 2016 17:35 - CONCLUSION: No evidence of obstruction or free air. Reyes Jewell MD Abdomen Ultrasound 12/06/15 0000 Signed Impressions: Service Date/Time: Sunday, December 06, 2015 17:42 - CONCLUSION: 1. The gallbladder is unremarkable with no evidence of cholelithiasis. 2. Simple cyst in the left kidney. 3. Mild pyelocaliectasis in the right kidney. Salazar Thurman MD Upper Extremity Ultrasound 10/13/15 0000 Signed Impressions: Service Date/Time: Tuesday, October 13, 2015 09:51 - CONCLUSION: 1. No evidence of deep venous thrombosis. John Anderson MD Renal Ultrasound 10/07/15 0000 Signed Impressions: Service Date/Time: Wednesday, October 07, 2015 18:29 - CONCLUSION: 1. No acute findings. 3.6 cm left renal cyst. Putnam catheter in bladder. Amaury Ellsworth MD Tunnelled Chest Tube Removal 08/05/15 1100 Signed Impressions: Service Date/Time: Wednesday, August 05, 2015 11:00 - CONCLUSION: Uncomplicated chest tube removal. Blaine Jackson MD Chest Tube Change 07/31/15 0000 Signed Impressions: Service Date/Time: Friday, July 31, 2015 14:34 - CONCLUSION: Uncomplicated reposition of previously placed chest tube as above. Blaine Jackson MD Chest Tube Insertion 07/30/15 0000 Signed Impressions: Service Date/Time: July 14:50 - CONCLUSION: Uncomplicated chest tube placement as above. Blaine Jackson MD Catheter Change 07/27/15 0000 Signed Impressions: Service Date/Time: Monday, July 27, 2015 14:43 - CONCLUSION: Uncomplicated gastrostomy tube exchange as above. Blaine Jackson MD Chest CT 07/11/15 0000 Signed Impressions: Service Date/Time: Saturday, July 11, 2015 09:49 - CONCLUSION: Scattered patchy densities significantly improved from previous study. Tiny anterior right basilar pneumothorax. Right-sided chest tube in good position. Néstor Matamoros MD Head CT 06/18/151902 Signed Impressions: Service Date/Time: June 19:31 - CONCLUSION: Diffuse atrophy unchanged. No acute intracranial findings. Kush Briscoe MD Abdomen/Pelvis CT 06/18/151902 Signed Impressions: Service Date/Time: June 19:36 - CONCLUSION: 1. Chronic nonspecific urinary bladder wall thickening. Bladder collapsed with Putnam catheter in place. 2. Chronic bilateral mid to lower lung zone groundglass opacity. 3. Nonobstructing left renal calculus. 4. Distended rectum. Kush Briscoe MD Objective Remarks GENERAL: Cachectic patient with limbs contracted. Eyes open. SKIN: Warm and dry. HEAD: Normocephalic. EYES: Left erythematous and with drainage. NECK: 8.0 Distal XLT trach in place CARDIOVASCULAR: Tachycardic without murmurs, gallops, or rubs. RESPIRATORY: Coarse breath sounds. GASTROINTESTINAL: Abdomen soft, non-tender, nondistended. MUSCULOSKELETAL: Contracted limbs. Wound on lower back currently bandaged. NEURO: Eyes are open, not tracking. Procedures 07/26- PEG replacement 07/29- right pigtail catheter placement for new pneumothorax Medications and IVs Current Medications Medications (Trade) Dose Ordered Sig/Jassi Route Start Time Stop Time Status Last Admin (NS Flush) 2 ml UNSCH PRN IVF 06/18/15 21:30 02/01/16 03:04 (NS Flush) 2 ml BID IVF 06/19/15 09:00 04/04/16 23:30 (Tylenol 650 Mg/ 20 ml Liq) 650 mg Q6H PRN TUBE 06/18/15 21:30 03/31/16 19:41 (Tears Naturale Opth Soln) 1 drop TID EACH EYE 06/19/15 09:00 04/05/16 09:42 (Zofran Inj) 4 mg Q6H PRN IV 06/18/15 21:30 11/26/15 11:54 (Neurontin) 300 mg BID G-TUBE 06/19/15 09:00 04/05/16 09:41 (Lactinex) 1 tab TID PO 06/19/15 09:00 04/05/16 09:42 (Paxil) 20 mg DAILY G-TUBE 06/19/15 09:00 Hold 03/28/16 09:50 (Pill Splitter) 1 ea UNSCH PRN OTHER 06/19/15 03:30 06/28/15 09:35 (Prevacid Odt) 30 mg DAILY NG 07/08/15 09:00 04/05/16 09:42 (Morphine Inj) 2 mg Q3H PRN IV PUSH 07/28/15 00:45 03/31/16 19:41 (Lovenox Inj) 40 mg Q24H SQ 08/09/15 22:00 04/04/16 23:30 (Sublimaze Inj) 50 mcg Q2H PRN IV PUSH 08/15/15 15:45 01/15/16 13:10 (Santyl Oint) 1 applic DAILY TOP 08/21/15 09:00 04/05/16 09:43 (Levsin Liq) 0.125 mg Q4H PRN PO 09/06/15 11:00 03/23/16 12:49 (Brethine Inj) 1 mg UNSCH PRN SQ 12/06/15 06:45 (Ativan Inj) 1 mg Q3HR PRN IVP 12/15/15 17:00 04/01/16 01:56 (Deltasone) 2.5 mg DAILY PO 12/23/15 09:00 04/05/16 09:41 (Free Water) 200 ml Q6HR G-TUBE 01/03/16 18:00 04/05/16 06:00 (KCl 40 Meq/30 ml Liq) 20 meq DAILY GT 01/08/16 17:00 Hold 03/14/16 09:35 (Urecholine) 10 mg Q8HR PO 01/13/16 22:00 04/05/16 06:10 (Sinemet 25-100 Mg) 1.5 tab QID GT 01/14/16 21:00 04/05/16 09:41 Chlorhexidine Gluconate 15 ml 15 ml BID@08,20 MT 02/04/16 10:20 04/05/16 09:42 Dextrose/Sodium Chloride 1,000 ml @ 42 mls/hr [id number] IV 03/14/16 19:00 04/05/16 04:44 (Maxipime Inj/NS Inj) 100 ml @ 200 mls/hr Q8H IV 03/21/16 20:00 04/05/16 04:20 (Bactrim 400-80 Mg) 1 tab Q12HR PO 03/28/16 21:00 04/05/16 09:41 ([place] 5-325 Mg) 1 tab Q6H PO 03/29/16 22:00 04/05/16 09:41 A/P Problem List: (1) Sepsis ICD Code: A41.9 Status: Acute (2) HCAP (healthcare-associated pneumonia) ICD Code: J18.9 Status: Acute (3) Fever ICD Code: R50.9 Status: Resolved (4) Sepsis due to urinary tract infection ICD Code: A41.9 Status: Resolved (5) Chronic respiratory failure ICD Code: J96.10 Status: Chronic (6) Parkinson disease ICD Code: G20 Status: Chronic (7) UTI (urinary tract infection) ICD Code: N39.0 Status: Resolved (8) Encephalopathy ICD Code: G93.40 Status: Resolved (9) Feeding tube obstruction ICD Code: T85.598A Status: Resolved (10) Conjunctivitis ICD Code: H10.9 Status: Resolved (11) Hypotension ICD Code: I95.9 Status: Resolved Assessment and Plan 55-year-old male with persistent sepsis, pneumonia, respiratory failure. Patient is contracted and noninteractive. Poor prognosis. I have not been able to get in touch with the patient's daughter. I have left messages with no return calls. Appreciate palliative care following. New Sepsis sources: Tracheobronchitis and ESBL Kleb pneumo UTI MDR PSAE tracheobronchitis. ESBL MDR Kleb pneumo Cath associated UTI. h/o Recurrent aspiration tube feed related in past. Heena Cath associated UTI. - Continue cefepime. DC Zyvox per infectious disease (ASP: ESBL Kleb pneumo UTI ). On Bactrim per ID. Chronic respiratory failure Chronic tracheostomy. Currently on continuous BiPAP. T piece off. S/P recurrent right pneumothorax status post pigtail catheter removal. On 50% FiO2 . - Suction and Levsin as needed - On prednisone taper per pulmonology. Continue with Duo nebs 4 times a day and when necessary. - Appreciate input from palliative care medicine. Metabolic Encephalopathy Parkinson's disease underlying. Appear to have permanent damage. Sometimes able to minimally respond to commands, nonverbally. - Continue Sinemet. - Ativan as needed. Malnutrition/protein calorie - moderate Status post PEG. - Current Colace/senna for bowel regimen. - continue PPI.- Prevacid. - IR replaced J G tube on 03/17/16. - Continue current tube feed - Given a liter of IV fluid today due to insensible loss Bilateral lower extremity Contractures Stage II DU. - Wound care team following. - Continue physical therapy to help with contractures. - turn q 2 hours - Agree with palliative care medicine, he cannot communicate his pain. Continue with schedule Lortab every 6 hours. GI prophylaxis: PPI. Stool softener PRN constipation. DVT PPx: Lovenox Discharge Planning Awaiting clinical improvement. Problem Qualifiers (1) Fever: Qualified Code: R50.9 - Fever, unspecified fever cause (2) Chronic respiratory failure: Qualified Code: J96.10 - Chronic respiratory failure, unspecified whether with hypoxia or hypercapnia (3) UTI (urinary tract infection): Qualified Code: N30.00 - Acute cystitis without hematuria (4) Conjunctivitis: Qualified Code: H10.9 - Conjunctivitis of left eye, unspecified conjunctivitis type Salazar Santa DO Apr 05, 2016 11:44
[2016-04-05] MEDS ORDERED: LORazepam 2 MG/ML VIAL IV PUSH ONE (12:00)
--- NOTE | 2016-04-05 18:14 | HHI.PR ---
Subjective Remarks Awake and remains stable 0n T Bar at FIO2 35 % . Responds to some commands. Weak in all limbs Objective Vital Signs Date Time Temp Pulse Resp B/P Pulse Ox O2 Delivery O2 Flow Rate FiO2 04/05/16 16:00 97.4 69 20 101/55 99 04/05/16 12:00 99.6 80 22 99/64 99 04/05/16 08:29 98 T-piece 50 04/05/16 08:00 99.2 91 24 104/53 100 04/05/16 05:41 18 04/05/16 04:34 98 50 04/05/16 04:14 98 Bi-Pap 40 04/05/16 04:00 98.9 100 28 135/71 92 04/05/16 01:13 98 50 04/05/16 00:51 99.8 92 28 127/75 92 04/04/16 20:30 100 50 04/04/16 20:00 96.5 80 28 118/79 91 I/O 04/04/16 04/04/16 04/04/16 04/05/16 04/05/16 04/05/16 07:00 15:00 23:00 07:00 15:00 23:00 Intake Total 200 ml 1389 ml Output Total 600 ml 700 ml 600 ml 300 ml 250 ml Balance -400 ml -700 ml -600 ml 1089 ml -250 ml Tube Feeding 989 ml Tube Irrigant 200 ml Other 400 ml Output Urine Total 600 ml 700 ml 600 ml 300 ml 250 ml # Bowel Movements 1 0 Result Diagram: 04/05/1625 04/05/16724 Objective Remarks This is a thin white male who is , awake with a trach tube in place. HEENT: Pupils are equal and reactive to light. CHEST:Decreased breath sounds,with few Basal crackles. CARDIOVASCULAR: S1 and S2 is normal.No murmur. ABDOMEN: Soft, nondistended. BS +. He has a PEG and J tube in place. EXTREMITIES: Contractures.muscle wasting.Reflexes 1 + NEURO: Awake and has weak extremities. Skin is dry . Assessment and Plan Assessment and Plan IMPRESSION 1. Chronic Respiratory failure. 2. Sepsis, Aspiration. 3. Left basal Pneumonia, Resolved 4. Bi Basal pneumonia 5. Parkinson's disease 6. Dementia. 7. Severe Deconditioning. Plan : 1. Cont Bipap at 10/5 CM FIO2 35 % from 9 pm to 7 am 2. Nebs Bid , duoneb. 3. Tube feeds at [address] on T Bar in am 45 % upto 14 hrs. 5. Levsin .125 mg tid prn. 6. Cont Trach toilet and lavage. 7. Labs in am 8. PT evaluation . 1 Darren Kiser MD Apr 05, 2016 18:14
[2016-04-05] MEDS: ENOXAPARIN SODIUM 40 MG/0.4 ML SYRINGE SQ SCH (22:45)
[2016-04-06] VITALS (9 sets, daily range): BP systolic 92–152; BP diastolic 53–83; PULSE 65–85; RESP 18–23; TEMP 96.1–99.2; O2SAT 94–100
[2016-04-06] MEDS: CEFEPIME INJ 2,000 MG in SODIUM CHLORIDE 0.9% INJ 100 ML IV SCH ×2 (04:33→12:22)
[2016-04-06] MEDS: ACETAMINOPHEN/HYDROcodone 325 MG/5 MG TAB PO SCH ×4 (04:33→21:16)
[2016-04-06] MEDS: SODIUM CHLORIDE 0.9% FLUSH 5 ML FLUSH IVF SCH ×2 (09:00→21:00)
--- NOTE | 2016-04-06 09:01 | HHI.PR ---
Subjective Remarks The patient was resting somewhat comfortably. He was sort of able to follow commands. He closed his eyes upon request but did not open them. Objective Vitals Vital Signs Date Time Temp Pulse Resp B/P Pulse Ox O2 Delivery O2 Flow Rate FiO2 04/06/16 08:16 96.2 73 21 103/61 99 04/06/16 04:50 99 50 04/06/16 04:00 97.8 82 22 152/83 95 04/06/16 01:30 99 Bi-Pap 40 04/06/16 01:09 100 50 04/06/16 00:09 97.2 84 22 150/82 94 04/06/16 00:00 99 Bi-Pap 40 04/05/16 23:53 24 04/05/16 21:38 99 50 04/05/16 21:15 99 Bi-Pap 40 04/05/16 20:00 97.3 83 22 152/85 95 04/05/16 16:00 97.4 69 20 101/55 99 04/05/16 12:00 99.6 80 22 99/64 99 I/O 04/05/16 04/05/16 04/05/16 04/06/16 04/06/16 04/06/16 07:00 15:00 23:00 07:00 15:00 23:00 Intake Total 1389 ml Output Total 300 ml 250 ml 450 ml Balance 1089 ml -250 ml -450 ml Tube Feeding 989 ml Other 400 ml Output Urine Total 300 ml 250 ml 450 ml # Bowel Movements 1 Result Diagram: 04/05/16 0725 04/05/16 0725 Imaging Last Impressions Chest X-Ray 03/31/16 0000 Signed Impressions: Service Date/Time: March 08:59 - CONCLUSION: No consolidative infiltrates seen. Some patchy areas of opacity at the left base may represent developing infiltrate. Recommend followup films. Tai Jaquez MD Tube Change 03/17/16 1051 Signed Impressions: Service Date/Time: March 16:28 - CONCLUSION: Uncomplicated gastrojejunostomy tube exchange as above. John Anderson MD Tube Check 02/12/16 0000 Signed Impressions: Service Date/Time: Friday, February 12, 2016 16:08 - CONCLUSION: Uncomplicated tube injection as above. Blaine Jackson MD Gastrostomy Tube Change 01/15/16 0000 Signed Impressions: Service Date/Time: Friday, January 15, 2016 12:28 - CONCLUSION: Successful GJ tube exchange as above. Scott Goode MD Abdomen X-Ray 01/12/16 1628 Signed Impressions: Service Date/Time: Tuesday, January 12, 2016 17:35 - CONCLUSION: No evidence of obstruction or free air. Reyes Jewell MD Abdomen Ultrasound 12/06/15 0000 Signed Impressions: Service Date/Time: Sunday, December 06, 2015 17:42 - CONCLUSION: 1. The gallbladder is unremarkable with no evidence of cholelithiasis. 2. Simple cyst in the left kidney. 3. Mild pyelocaliectasis in the right kidney. Salazar Thurman MD Upper Extremity Ultrasound 10/13/15 0000 Signed Impressions: Service Date/Time: Tuesday, October 13, 2015 09:51 - CONCLUSION: 1. No evidence of deep venous thrombosis. John Anderson MD Renal Ultrasound 10/07/15 0000 Signed Impressions: Service Date/Time: Wednesday, October 07, 2015 18:29 - CONCLUSION: 1. No acute findings. 3.6 cm left renal cyst. Putnam catheter in bladder. Amaury Ellsworth MD Tunnelled Chest Tube Removal 08/05/15 1100 Signed Impressions: Service Date/Time: Wednesday, August 05, 2015 11:00 - CONCLUSION: Uncomplicated chest tube removal. Blaine Jackson MD Chest Tube Change 07/31/15 0000 Signed Impressions: Service Date/Time: Friday, July 31, 2015 14:34 - CONCLUSION: Uncomplicated reposition of previously placed chest tube as above. Blaine Jackson MD Chest Tube Insertion 07/30/15 0000 Signed Impressions: Service Date/Time: July 14:50 - CONCLUSION: Uncomplicated chest tube placement as above. Blanie Jackson MD Catheter Change 07/27/15 0000 Signed Impressions: Service Date/Time: Monday, July 27, 2015 14:43 - CONCLUSION: Uncomplicated gastrostomy tube exchange as above. Blaine Jackson MD Chest CT 07/11/15 0000 Signed Impressions: Service Date/Time: Saturday, July 11, 2015 09:49 - CONCLUSION: Scattered patchy densities significantly improved from previous study. Tiny anterior right basilar pneumothorax. Right-sided chest tube in good position. Néstor Matamoros MD Head CT 06/18/151902 Signed Impressions: Service Date/Time: June 19:31 - CONCLUSION: Diffuse atrophy unchanged. No acute intracranial findings. Kush Briscoe MD Abdomen/Pelvis CT 06/18/151902 Signed Impressions: Service Date/Time: June 19:36 - CONCLUSION: 1. Chronic nonspecific urinary bladder wall thickening. Bladder collapsed with Putnam catheter in place. 2. Chronic bilateral mid to lower lung zone groundglass opacity. 3. Nonobstructing left renal calculus. 4. Distended rectum. Kush Briscoe MD Objective Remarks GENERAL: Cachectic patient with limbs contracted. Eyes open. SKIN: Warm and dry. HEAD: Normocephalic. EYES: Left erythematous and with drainage. NECK: 8.0 Distal XLT trach in place CARDIOVASCULAR: Tachycardic without murmurs, gallops, or rubs. RESPIRATORY: Coarse breath sounds. GASTROINTESTINAL: Abdomen soft, non-tender, nondistended. MUSCULOSKELETAL: Contracted limbs. Wound on lower back several centimeters wide with clean margins. NEURO: Eyes are open, not tracking. Procedures 07/26- PEG replacement 07/29- right pigtail catheter placement for new pneumothorax Medications and IVs Current Medications Medications (Trade) Dose Ordered Sig/Jassi Route Start Time Stop Time Status Last Admin (NS Flush) 2 ml UNSCH PRN IVF 06/18/15 21:30 02/01/16 03:04 (NS Flush) 2 ml BID IVF 06/19/15 09:00 04/05/16 22:45 (Tylenol 650 Mg/ 20 ml Liq) 650 mg Q6H PRN TUBE 06/18/15 21:30 03/31/16 19:41 (Tears Naturale Opth Soln) 1 drop TID EACH EYE 06/19/15 09:00 04/05/16 18:11 (Zofran Inj) 4 mg Q6H PRN IV 06/18/15 21:30 11/26/15 11:54 (Neurontin) 300 mg BID G-TUBE 06/19/15 09:00 04/05/16 22:44 (Lactinex) 1 tab TID PO 5/13/16 09:00 04/05/16 18:12 (Paxil) 20 mg DAILY G-TUBE 06/19/15 09:00 Hold 03/28/16 09:50 (Pill Splitter) 1 ea UNSCH PRN OTHER 06/19/15 03:30 06/28/15 09:35 (Prevacid Odt) 30 mg DAILY NG 07/08/15 09:00 04/05/16 09:42 (Morphine Inj) 2 mg Q3H PRN IV PUSH 07/28/15 00:45 03/31/16 19:41 (Lovenox Inj) 40 mg Q24H SQ 08/09/15 22:00 04/05/16 22:45 (Sublimaze Inj) 50 mcg Q2H PRN IV PUSH 08/15/15 15:45 01/15/16 13:10 (Santyl Oint) 1 applic DAILY TOP 08/21/15 09:00 04/05/16 09:43 (Levsin Liq) 0.125 mg Q4H PRN PO 09/06/15 11:00 03/23/16 12:49 (Brethine Inj) 1 mg UNSCH PRN SQ 12/06/15 06:45 (Ativan Inj) 1 mg Q3HR PRN IVP 12/15/15 17:00 04/01/16 01:56 (Deltasone) 2.5 mg DAILY PO 12/23/15 09:00 04/05/16 09:41 (Free Water) 200 ml Q6HR G-TUBE 01/03/16 18:00 04/05/16 23:55 (KCl 40 Meq/30 ml Liq) 20 meq DAILY GT 01/08/16 17:00 Hold 03/14/16 09:35 (Urecholine) 10 mg Q8HR PO 01/13/16 22:00 04/05/16 22:44 (Sinemet 25-100 Mg) 1.5 tab QID GT 01/14/16 21:00 04/05/16 22:44 Chlorhexidine Gluconate 15 ml 15 ml BID@08,20 MT 02/04/16 10:20 04/05/16 22:49 Dextrose/Sodium Chloride 1,000 ml @ 42 mls/hr [id number] IV 03/14/16 19:00 04/05/16 04:44 (Maxipime Inj/NS Inj) 100 ml @ 200 mls/hr Q8H IV 03/21/16 20:00 04/06/16 04:33 (Bactrim 400-80 Mg) 1 tab Q12HR PO 03/28/16 21:00 04/05/16 22:45 ([place] 5-325 Mg) 1 tab Q6H PO 03/29/16 22:00 04/06/16 04:33 A/P Problem List: (1) Sepsis ICD Code: A41.9 Status: Acute (2) HCAP (healthcare-associated pneumonia) ICD Code: J18.9 Status: Acute (3) Fever ICD Code: R50.9 Status: Resolved (4) Sepsis due to urinary tract infection ICD Code: A41.9 Status: Resolved (5) Chronic respiratory failure ICD Code: J96.10 Status: Chronic (6) Parkinson disease ICD Code: G20 Status: Chronic (7) UTI (urinary tract infection) ICD Code: N39.0 Status: Resolved (8) Encephalopathy ICD Code: G93.40 Status: Resolved (9) Feeding tube obstruction ICD Code: T85.598A Status: Resolved (10) Conjunctivitis ICD Code: H10.9 Status: Resolved (11) Hypotension ICD Code: I95.9 Status: Resolved Assessment and Plan 55-year-old male with persistent sepsis, pneumonia, respiratory failure. Patient is contracted and noninteractive. Poor prognosis. I have not been able to get in touch with the patient's daughter. I have left messages with no return calls. Appreciate palliative care following. New Sepsis sources: Tracheobronchitis and ESBL Kleb pneumo UTI MDR PSAE tracheobronchitis. ESBL MDR Kleb pneumo Cath associated UTI. h/o Recurrent aspiration tube feed related in past. Heena Cath associated UTI. - Continue cefepime (started 03/21). DC Zyvox per infectious disease (ASP: ESBL Kleb pneumo UTI). On Bactrim per ID. Chronic respiratory failure Chronic tracheostomy. Currently on continuous BiPAP. T piece off. S/P recurrent right pneumothorax status post pigtail catheter removal. On 40% FiO2 . - Suction and Levsin as needed - On prednisone taper per pulmonology. Continue with Duo nebs 4 times a day and when necessary. - Appreciate input from palliative care medicine. Metabolic Encephalopathy Parkinson's disease underlying. Appear to have permanent damage. Sometimes able to minimally respond to commands, nonverbally. - Continue Sinemet. - Ativan as needed. Malnutrition/protein calorie - moderate Status post PEG. Tolerating tube feeds 04/06. - Current Colace/senna for bowel regimen. - continue PPI.- Prevacid. - IR replaced J G tube on 03/17/16. - Continue current tube feed - Given a liter of IV fluid today due to insensible loss Bilateral lower extremity contractures/ Unstageable sacral ulcer. Wound care consult appreciated. - bandage changed 04/06/16. - Continue physical therapy to help with contractures. - turn q 2 hours - Agree with palliative care medicine, he cannot communicate his pain. Continue with schedule Lortab every 6 hours. GI prophylaxis: PPI. Stool softener PRN constipation. DVT PPx: Lovenox Discharge Planning Awaiting clinical improvement. Problem Qualifiers (1) Fever: Qualified Code: R50.9 - Fever, unspecified fever cause (2) Chronic respiratory failure: Qualified Code: J96.10 - Chronic respiratory failure, unspecified whether with hypoxia or hypercapnia (3) UTI (urinary tract infection): Qualified Code: N30.00 - Acute cystitis without hematuria (4) Conjunctivitis: Qualified Code: H10.9 - Conjunctivitis of left eye, unspecified conjunctivitis type Salazar Santa DO Apr 06, 2016 09:00
[2016-04-06] MEDS: LANSOPRAZOLE SOLUTAB 30 MG TAB NG SCH (10:07)
[2016-04-06] MEDS: SULFAMETHOXAZOLE-TRIMETHOPRIM 400-80 MG TAB PO SCH (10:07)
[2016-04-06] MEDS: CHLORHEXIDINE GLUCONATE 0.12% 30 ML CUP MT SCH ×2 (10:09→20:00)
[2016-04-06] MEDS: LACTOBACILLUS ACIDOPHILUS TAB PO SCH ×3 (10:09→16:56)
[2016-04-06] MEDS: GABAPENTIN 300 MG CAP G-TUBE SCH ×2 (10:09→21:15)
[2016-04-06] MEDS: CARBIDOPA/LEVODOPA 25 MG/100 MG TAB GT SCH ×4 (10:16→21:15)
[2016-04-06] MEDS: predniSONE 5 MG TAB PO SCH (10:16)
[2016-04-06] MEDS: ARTIFICIAL TEARS OPTH SOLN 15 ML BTL EACH EYE SCH ×3 (10:20→16:56)
[2016-04-06] MEDS: COLLAGENASE OINT 30 GM TUBE TOP SCH (10:21)
[2016-04-06] MEDS: FREE WATER G-TUBE SCH ×3 (12:00→23:09)
[2016-04-06] MEDS: BETHANECHOL CHL 10 MG TAB PO SCH ×2 (14:29→21:16)
--- NOTE | 2016-04-06 18:15 | HHI.PR ---
Subjective Remarks Awake and remains stable 0n T Bar at FIO2 30 % .Trying to talk. Weak in all limbs Objective Vital Signs Date Time Temp Pulse Resp B/P Pulse Ox O2 Delivery O2 Flow Rate FiO2 04/06/16 18:00 20 04/06/16 16:00 97.1 81 23 118/70 100 04/06/16 12:00 96.1 85 23 107/71 95 04/06/16 09:30 Trach Collar 7.00 T-Piece 04/06/16 09:02 100 T-piece 6.00 50 04/06/16 08:16 96.2 73 21 103/61 99 04/06/16 04:50 99 50 04/06/16 04:00 97.8 82 22 152/83 95 04/06/16 01:30 99 Bi-Pap 40 04/06/16 01:09 100 50 04/06/16 00:09 97.2 84 22 150/82 94 04/06/16 00:00 99 Bi-Pap 40 04/05/16 21:38 99 50 04/05/16 21:15 99 Bi-Pap 40 04/05/16 20:00 97.3 83 22 152/85 95 I/O 04/05/16 04/05/16 04/05/16 04/06/16 04/06/16 04/06/16 07:00 15:00 23:00 07:00 15:00 23:00 Intake Total 1389 ml 1242 ml Output Total 300 ml 250 ml 450 ml 500 ml Balance 1089 ml -250 ml -450 ml 742 ml IV Total 294 ml Tube Feeding 989 ml 948 ml Other 400 ml Output Urine Total 300 ml 250 ml 450 ml 500 ml # Bowel Movements 1 2 Result Diagram: 04/05/1672404/05/16724 Objective Remarks This is a thin white male who is , awake with a trach tube in place. HEENT: Pupils are equal and reactive to light. CHEST:Decreased breath sounds,and occ wheeze. CARDIOVASCULAR: S1 and S2 is normal.No murmur. ABDOMEN: Soft, nondistended. BS +. He has a PEG and J tube in place. EXTREMITIES: Contractures.muscle wasting.Reflexes 1 + NEURO: Awake and has weak extremities. Skin is dry . Assessment and Plan Assessment and Plan IMPRESSION 1. Chronic Respiratory failure. 2. Sepsis, Aspiration. 3. Left basal Pneumonia, Resolved 4. Bi Basal pneumonia 5. Parkinson's disease 6. Dementia. 7. Severe Deconditioning. Plan : 1. Cont Bipap at 10/5 CM FIO2 35 % from 9 pm to 7 am 2. Nebs Bid , duoneb. 3. Tube feeds at [address] on T Bar in am 40 % upto 14 hrs. 5. Levsin .125 mg tid prn. 6. Cont Trach toilet and lavage. 7. PT evaluation . 1 Darrne Kiser MD Apr 06, 2016 18:15
--- NOTE | 2016-04-06 19:49 | HHI.IDPN ---
Subjective Subjective Remarks Overnight events reviewed with RN CXR clearing up. Secretions no white and thin. Still needs frequent suctioning. Tolerating tube feeds WBC normal. No fevers. is 55 y/o CM with multiple medical problems.Chronic encephalopathy with underlying diagnosis of advanced dementia as well as advanced Parkinson's disease. Status post trach, Status post gastrostomy tube, sacral decubitus ulcer, h/o Recurrent aspiration tube feed related in past. Antibiotics Cefepime IV Levaquin oral Lines Peripheral IV with no e/o infection Past Medical History reviewed Allergies: Coded Allergies: *MDRO Multi-Drug Resistant Organism (Verified Adverse Reaction, Unknown, ESBL, carbapenem resistant Pseudomonas, 01/13/16) ESBL E. coli (urine) - 02/19/2015; ESBL K. pneumoniae (sputum-06/18/15, 08/03/15, 09/20/15,10/12/15, 11/27/15, 12/26/15, 01/09/16), (urine-08/03/15 & 11/27/15), MRSA PCR POSITIVE - 03/20/2015 MDR-Pseudomonas (sputum)- 08/18/15, 09/20/15, 10/2015 (Carbapenem resistant) Objective . Vital Signs Date Time Temp Pulse Resp B/P Pulse Ox O2 Delivery O2 Flow Rate FiO2 04/06/16 18:00 20 04/06/16 16:00 97.1 81 23 118/70 100 04/06/16 12:00 96.1 85 23 107/71 95 04/06/16 09:30 Trach Collar 7.00 T-Piece 04/06/16 09:02 100 T-piece 6.00 50 04/06/16 08:16 96.2 73 21 103/61 99 04/06/16 04:50 99 50 04/06/16 04:00 97.8 82 22 152/83 95 04/06/16 01:30 99 Bi-Pap 40 04/06/16 01:09 100 50 04/06/16 00:09 97.2 84 22 150/82 94 04/06/16 00:00 99 Bi-Pap 40 04/05/16 21:38 99 50 04/05/16 21:15 99 Bi-Pap 40 04/05/16 20:00 97.3 83 22 152/85 95 04/05/16 04/05/16 04/06/16 15:00 23:00 07:00 Output Total 250 ml 450 ml Balance -250 ml -450 ml Output Urine Total 250 ml 450 ml # Bowel Movements 1 . Laboratory Tests Test 04/05/16 07:25 White Blood Count 13.4 TH/MM3 Red Blood Count 3.71 MIL/MM3 Hemoglobin 9.9 GM/DL Hematocrit 31.5 % Mean Corpuscular Volume 85.0 FL Mean Corpuscular Hemoglobin 26.6 PG Mean Corpuscular Hemoglobin 31.3 % Concent Red Cell Distribution Width 17.9 % Platelet Count 189 TH/MM3 Mean Platelet Volume 10.6 FL Laboratory Tests Test 04/05/16 07:25 Sodium Level 139 MEQ/L Potassium Level 4.6 MEQ/L Chloride Level 101 MEQ/L Carbon Dioxide Level 32.8 MEQ/L Anion Gap 5 MEQ/L Blood Urea Nitrogen 16 MG/DL Creatinine 0.44 MG/DL Estimat Glomerular Filtration 202 ML/MIN Rate Random Glucose 120 MG/DL Calcium Level 8.5 MG/DL Imaging Chest X-Ray 03/04/16 0000 Signed Impressions: Service Date/Time: Friday, March 04, 2016 18:10 - CONCLUSION: No acute cardiopulmonary disease. Eugene Schmid MD Physical Exam GENERAL: No interaction, calm, looks comfortable SKIN: Cool and moist. No generalized rash. HEENT: [place] conjunctivae, no icterus, moist mucosa. NECK: Trach site looks ok. Supple RESPIRATORY: Coarse BS razia, with few rhonchi GASTROINTESTINAL: Abdomen soft, not distended. Bowel sounds normoactive. No guarding. PEG site looks okay. MUSCULOSKELETAL: No cyanosis No pedal edema. Contracted all 4 extremities. NEUROLOGICAL: Eyes open, Extremities contracted Peripheral IV line sites with no evidence of infection. ; Valdez in place, urine looks clear Assessment & Plan Remarks IMPRESSION New Sepsis sources: Tracheobronchitis and ESBL Kleb pneumo UTI MDR PSAE Pneumonia. ESBL MDR Kleb pneumo Cath associated UTI. Chronic respiratory failure on trach Chronic encephalopathy with underlying diagnosis of advanced dementia as well as advanced Parkinson's disease. Status post trach Status post gastrostomy tube with no evidence of infection. Stage II sacral decubitus ulcer present on admission. h/o Recurrent aspiration tube feed related in past. Heena Cath associated UTI Recommendations Discontinue cefepime IV Discontinue Bactrim Follow clinically. Patient is at risk for recurrent aspiration as well as mucous plugs. Recommend once a month valdez change as for chronic patients. Pulmonary toilet Appreciate palliative care assistance. Will sign off please call back if any change in clinical condition or questions. Trina Moss MD Apr 06, 2016 19:49
[2016-04-06] MEDS: ENOXAPARIN SODIUM 40 MG/0.4 ML SYRINGE SQ SCH (21:16)
[2016-04-07] VITALS (10 sets, daily range): BP systolic 84–127; BP diastolic 51–78; PULSE 56–99; RESP 17–20; TEMP 96.1–98.5; O2SAT 93–100
[2016-04-07] MEDS: FREE WATER G-TUBE SCH ×2 (05:19→23:41)
[2016-04-07] MEDS: ACETAMINOPHEN/HYDROcodone 325 MG/5 MG TAB PO SCH ×4 (05:23→23:40)
[2016-04-07] MEDS: BETHANECHOL CHL 10 MG TAB PO SCH ×3 (05:23→23:39)
[2016-04-07] MEDS: CHLORHEXIDINE GLUCONATE 0.12% 30 ML CUP MT SCH ×2 (08:00→23:41)
[2016-04-07 08:29] LABS: AUTOMATED NEUTROPHIL # 8.9 TH/MM3 (1.8-7.7); BASOPHIL % 0.4 % (0.0-2.0); EOSINOPHIL # 0.4 TH/MM3 (0-0.4); EOSINOPHIL % 3.7 % (0.0-4.0); HEMATOCRIT 28.1 % (39.0-51.0); HEMO FLAGS DIFF FINAL; LYMPH % 10.5 % (9.0-44.0); LYMPHOCYTE # 1.2 TH/MM3 (1.0-4.8); MEAN CELL VOLUME 84.5 FL (80.0-100.0); MEAN CORPUSCULAR HGB CONC 31.9 % (32.0-36.0); MONO % 7.9 % (0.0-8.0); NEUT % 77.5 % (16.0-70.0); PLATELET COUNT 213 TH/MM3 (150-450); RED BLOOD COUNT 3.32 MIL/MM3 (4.50-5.90); RED CELL DISTRIBUTION WIDTH 17.4 % (11.6-17.2); WHITE BLOOD COUNT 11.5 TH/MM3 (4.0-11.0)
[2016-04-07] MEDS: LANSOPRAZOLE SOLUTAB 30 MG TAB NG SCH (10:27)
[2016-04-07] MEDS: GABAPENTIN 300 MG CAP G-TUBE SCH ×2 (10:27→23:40)
[2016-04-07] MEDS: predniSONE 5 MG TAB PO SCH (10:28)
[2016-04-07] MEDS: LACTOBACILLUS ACIDOPHILUS TAB PO SCH ×3 (10:29→23:45)
[2016-04-07] MEDS: CARBIDOPA/LEVODOPA 25 MG/100 MG TAB GT SCH ×4 (10:29→23:40)
[2016-04-07] MEDS: ARTIFICIAL TEARS OPTH SOLN 15 ML BTL EACH EYE SCH ×2 (10:29→23:41)
[2016-04-07] MEDS: COLLAGENASE OINT 30 GM TUBE TOP SCH (10:29)
--- NOTE | 2016-04-07 16:54 | HHI.PR ---
Subjective Remarks The patient appeared comfortable. Nursing was at the bedside and reported that the patient would likely need another IV placed by the vascular access team. No other acute concerns. Objective Vitals Vital Signs Date Time Temp Pulse Resp B/P Pulse Ox O2 Delivery O2 Flow Rate FiO2 04/07/16 12:49 98.5 83 20 99/69 95 04/07/16 09:15 99 T-piece 6.00 28 04/07/16 09:10 96.1 56 20 91/54 100 04/07/16 05:58 99 50 04/07/16 04:00 98.0 97 18 118/70 97 04/07/16 00:31 97 50 04/07/16 00:00 98.3 90 18 100/64 97 04/06/16 20:00 99.2 65 18 92/53 95 04/06/16 20:00 Trach Collar 7.00 50 T-Piece 04/06/16 18:00 20 I/O 04/06/16 04/06/16 04/06/16 04/07/16 04/07/16 04/07/16 07:00 15:00 23:00 07:00 15:00 23:00 Intake Total 1242 ml Output Total 500 ml 800 ml Balance 742 ml -800 ml IV Total 294 ml Tube Feeding 948 ml Output Urine Total 500 ml 800 ml # Bowel Movements 2 1 Result Diagram: 04/07/16 0812 04/05/16 0725 Objective Remarks GENERAL: Cachectic patient with limbs contracted. Eyes open. SKIN: Warm and dry. HEAD: Normocephalic. EYES: Left erythematous and with drainage. NECK: 8.0 Distal XLT trach in place CARDIOVASCULAR: Tachycardic without murmurs, gallops, or rubs. RESPIRATORY: Coarse breath sounds. GASTROINTESTINAL: Abdomen soft, non-tender, nondistended. MUSCULOSKELETAL: Contracted limbs. Wound on lower back several centimeters wide with clean margins. NEURO: Eyes are open, not tracking. Procedures 07/26- PEG replacement 07/29- right pigtail catheter placement for new pneumothorax A/P Problem List: (1) Sepsis ICD Code: A41.9 Status: Acute (2) HCAP (healthcare-associated pneumonia) ICD Code: J18.9 Status: Acute (3) Fever ICD Code: R50.9 Status: Resolved (4) Sepsis due to urinary tract infection ICD Code: A41.9 Status: Resolved (5) Chronic respiratory failure ICD Code: J96.10 Status: Chronic (6) Parkinson disease ICD Code: G20 Status: Chronic (7) UTI (urinary tract infection) ICD Code: N39.0 Status: Resolved (8) Encephalopathy ICD Code: G93.40 Status: Resolved (9) Feeding tube obstruction ICD Code: T85.598A Status: Resolved (10) Conjunctivitis ICD Code: H10.9 Status: Resolved (11) Hypotension ICD Code: I95.9 Status: Resolved Assessment and Plan 55-year-old male with persistent sepsis, pneumonia, respiratory failure. Patient is contracted and noninteractive. Poor prognosis. I have not been able to get in touch with the patient's daughter. I have left messages with no return calls. Appreciate palliative care following. New Sepsis sources: Tracheobronchitis and ESBL Kleb pneumo UTI MDR PSAE tracheobronchitis. ESBL MDR Kleb pneumo Cath associated UTI. h/o Recurrent aspiration tube feed related in past. Heena Cath associated UTI. - DC antibiotics per infectious disease and monitor. Chronic respiratory failure Chronic tracheostomy. Currently on continuous BiPAP. T piece off. S/P recurrent right pneumothorax status post pigtail catheter removal. On 28% FiO2 /. - Suction and Levsin as needed - On prednisone taper per pulmonology. Continue with Duo nebs 4 times a day and when necessary. - Appreciate input from palliative care medicine. Metabolic Encephalopathy Parkinson's disease underlying. Appear to have permanent damage. Sometimes able to minimally respond to commands, nonverbally. - Continue Sinemet. - Ativan as needed. Malnutrition/protein calorie - moderate Status post PEG. Tolerating tube feeds 04/07. - Current Colace/senna for bowel regimen. - continue PPI.- Prevacid. - IR replaced J G tube on 03/17/16. - Continue current tube feed - Given a liter of IV fluid today due to insensible loss Bilateral lower extremity contractures/ Unstageable sacral ulcer. Wound care consult appreciated. - bandage changed 04/06/16. - Continue physical therapy to help with contractures. - turn q 2 hours - Agree with palliative care medicine, he cannot communicate his pain. Continue with schedule Lortab every 6 hours. GI prophylaxis: PPI. Stool softener PRN constipation. DVT PPx: Lovenox Discharge Planning Awaiting clinical improvement. Problem Qualifiers (1) Fever: Qualified Code: R50.9 - Fever, unspecified fever cause (2) Chronic respiratory failure: Qualified Code: J96.10 - Chronic respiratory failure, unspecified whether with hypoxia or hypercapnia (3) UTI (urinary tract infection): Qualified Code: N30.00 - Acute cystitis without hematuria (4) Conjunctivitis: Qualified Code: H10.9 - Conjunctivitis of left eye, unspecified conjunctivitis type Salazar Santa DO Apr 07, 2016 16:54
--- NOTE | 2016-04-07 16:59 | HHI.PR ---
Subjective Remarks Awake and remains stable and 0n T Bar at FIO2 40 % .Trying to talk. Weak in all limbs Objective Vital Signs Date Time Temp Pulse Resp B/P Pulse Ox O2 Delivery O2 Flow Rate FiO2 04/07/16 12:49 98.5 83 20 99/69 95 04/07/16 09:15 99 T-piece 6.00 28 04/07/16 09:10 96.1 56 20 91/54 100 04/07/16 05:58 99 50 04/07/16 04:00 98.0 97 18 118/70 97 04/07/16 00:31 97 50 04/07/16 00:00 98.3 90 18 100/64 97 04/06/16 20:00 99.2 65 18 92/53 95 04/06/16 20:00 Trach Collar 7.00 50 T-Piece 04/06/16 18:00 20 I/O 04/06/16 04/06/16 04/06/16 04/07/16 04/07/16 04/07/16 07:00 15:00 23:00 07:00 15:00 23:00 Intake Total 1242 ml Output Total 500 ml 800 ml Balance 742 ml -800 ml IV Total 294 ml Tube Feeding 948 ml Output Urine Total 500 ml 800 ml # Bowel Movements 2 1 Result Diagram: 04/07/16 0812 04/05/16 0725 Objective Remarks This is a thin white male who is , awake with a trach tube in place. HEENT: Pupils are equal and reactive to light. CHEST:Decreased breath sounds,and bilateral wheeze. CARDIOVASCULAR: S1 and S2 is normal.No murmur. ABDOMEN: Soft, nondistended. BS +. He has a PEG and J tube in place. EXTREMITIES: Contractures.muscle wasting.Reflexes 1 + NEURO: Awake and has weak extremities. Skin is dry . Assessment and Plan Assessment and Plan IMPRESSION 1. Chronic Respiratory failure. 2. Sepsis, Aspiration. 3. Left basal Pneumonia, Resolved 4. Bi Basal pneumonia 5. Parkinson's disease 6. Dementia. 7. Severe Deconditioning. Plan : 1. Cont Bipap at 10/5 CM FIO2 30 % from 9 pm to 7 am 2. Nebs Bid , duoneb. 3. Tube feeds at [address] on T Bar in am 30 % upto 14 hrs. 5. Levsin .125 mg tid prn. 6. Cont Trach toilet and lavage. 7. CXR on Monday 1 Darren Kiser MD Apr 07, 2016 16:59
[2016-04-07] MEDS: ENOXAPARIN SODIUM 40 MG/0.4 ML SYRINGE SQ SCH (23:41)
[2016-04-07] MEDS: SODIUM CHLORIDE 0.9% FLUSH 5 ML FLUSH IVF SCH (23:42)
[2016-04-08] VITALS (8 sets, daily range): BP systolic 106–166; BP diastolic 65–87; PULSE 76–93; RESP 20–24; TEMP 97.3–99.3; O2SAT 93–99
[2016-04-08] MEDS: ACETAMINOPHEN/HYDROcodone 325 MG/5 MG TAB PO SCH ×4 (05:27→23:21)
[2016-04-08] MEDS: BETHANECHOL CHL 10 MG TAB PO SCH ×3 (05:27→23:21)
[2016-04-08] MEDS: FREE WATER G-TUBE SCH ×4 (05:58→23:22)
[2016-04-08] MEDS: CHLORHEXIDINE GLUCONATE 0.12% 30 ML CUP MT SCH ×2 (08:00→23:23)
[2016-04-08] MEDS: LACTOBACILLUS ACIDOPHILUS TAB PO SCH ×3 (09:00→18:00)
[2016-04-08] MEDS: ARTIFICIAL TEARS OPTH SOLN 15 ML BTL EACH EYE SCH ×3 (09:00→18:00)
[2016-04-08] MEDS: GABAPENTIN 300 MG CAP G-TUBE SCH ×2 (09:00→23:27)
[2016-04-08] MEDS: LANSOPRAZOLE SOLUTAB 30 MG TAB NG SCH (09:00)
[2016-04-08] MEDS: SODIUM CHLORIDE 0.9% FLUSH 5 ML FLUSH IVF SCH ×2 (09:00→23:22)
[2016-04-08] MEDS: predniSONE 5 MG TAB PO SCH (09:00)
[2016-04-08] MEDS: CARBIDOPA/LEVODOPA 25 MG/100 MG TAB GT SCH ×4 (09:00→23:21)
--- NOTE | 2016-04-08 10:55 | HHI.PR ---
Subjective Remarks Nursing reports that the patient's feeding tube was clogged again. The patient was resting comfortably. Objective Vitals Vital Signs Date Time Temp Pulse Resp B/P Pulse Ox O2 Delivery O2 Flow Rate FiO2 04/08/16 08:22 97.3 76 24 106/65 96 04/08/16 07:00 Trach Collar 7.00 28 T-Piece 04/08/16 06:33 23 04/08/16 06:00 93 30 04/08/16 04:00 98.0 87 20 124/86 99 04/08/16 02:04 93 30 04/07/16 22:15 93 30 04/07/16 21:34 99 Trach Collar 7.00 40 T-Piece 04/07/16 20:00 98.3 99 20 127/78 98 04/07/16 17:14 97.4 84 17 84/51 98 04/07/16 12:49 98.5 83 20 99/69 95 I/O 04/07/16 04/07/16 04/07/16 04/08/16 04/08/16 04/08/16 07:00 15:00 23:00 07:00 15:00 23:00 Output Total 800 ml 450 ml 400 ml Balance -800 ml -450 ml -400 ml Output Urine Total 800 ml 450 ml 400 ml # Bowel Movements 1 Result Diagram: 04/07/16 0812 04/05/16 0725 Imaging Last Impressions Chest X-Ray 03/31/16 0000 Signed Impressions: Service Date/Time: March 08:59 - CONCLUSION: No consolidative infiltrates seen. Some patchy areas of opacity at the left base may represent developing infiltrate. Recommend followup films. Tai Jaquez MD Tube Change 03/17/16 1051 Signed Impressions: Service Date/Time: March 16:28 - CONCLUSION: Uncomplicated gastrojejunostomy tube exchange as above. John Anderson MD Tube Check 02/12/16 0000 Signed Impressions: Service Date/Time: Friday, February 12, 2016 16:08 - CONCLUSION: Uncomplicated tube injection as above. Blaine Jackson MD Gastrostomy Tube Change 01/15/16 0000 Signed Impressions: Service Date/Time: Friday, January 15, 2016 12:28 - CONCLUSION: Successful GJ tube exchange as above. Scott Goode MD Abdomen X-Ray 01/12/16 1628 Signed Impressions: Service Date/Time: Tuesday, January 12, 2016 17:35 - CONCLUSION: No evidence of obstruction or free air. Reyes Jewell MD Abdomen Ultrasound 12/06/15 0000 Signed Impressions: Service Date/Time: Sunday, December 06, 2015 17:42 - CONCLUSION: 1. The gallbladder is unremarkable with no evidence of cholelithiasis. 2. Simple cyst in the left kidney. 3. Mild pyelocaliectasis in the right kidney. Salazar Thurman MD Upper Extremity Ultrasound 10/13/15 0000 Signed Impressions: Service Date/Time: Tuesday, October 13, 2015 09:51 - CONCLUSION: 1. No evidence of deep venous thrombosis. John Anderson MD Renal Ultrasound 10/07/15 0000 Signed Impressions: Service Date/Time: Wednesday, October 07, 2015 18:29 - CONCLUSION: 1. No acute findings. 3.6 cm left renal cyst. Putnam catheter in bladder. Amaury Ellsworth MD Tunnelled Chest Tube Removal 08/05/15 1100 Signed Impressions: Service Date/Time: Wednesday, August 05, 2015 11:00 - CONCLUSION: Uncomplicated chest tube removal. Blaine Jackson MD Chest Tube Change 07/31/15 0000 Signed Impressions: Service Date/Time: Friday, July 31, 2015 14:34 - CONCLUSION: Uncomplicated reposition of previously placed chest tube as above. Blaine Jackson MD Chest Tube Insertion 07/30/15 0000 Signed Impressions: Service Date/Time: July 14:50 - CONCLUSION: Uncomplicated chest tube placement as above. Blaine Jackson MD Catheter Change 07/27/15 0000 Signed Impressions: Service Date/Time: Monday, July 27, 2015 14:43 - CONCLUSION: Uncomplicated gastrostomy tube exchange as above. Blaine Jackson MD Chest CT 07/11/15 0000 Signed Impressions: Service Date/Time: Saturday, July 11, 2015 09:49 - CONCLUSION: Scattered patchy densities significantly improved from previous study. Tiny anterior right basilar pneumothorax. Right-sided chest tube in good position. Néstor Matamoros MD Head CT 06/18/15 1902 Signed Impressions: Service Date/Time: June 19:31 - CONCLUSION: Diffuse atrophy unchanged. No acute intracranial findings. Kush Briscoe MD Abdomen/Pelvis CT 06/18/151902 Signed Impressions: Service Date/Time: June 19:36 - CONCLUSION: 1. Chronic nonspecific urinary bladder wall thickening. Bladder collapsed with Putnam catheter in place. 2. Chronic bilateral mid to lower lung zone groundglass opacity. 3. Nonobstructing left renal calculus. 4. Distended rectum. Kush Briscoe MD Objective Remarks GENERAL: Cachectic patient with limbs contracted. Eyes open. SKIN: Warm and dry. HEAD: Normocephalic. EYES: Left erythematous and with drainage. NECK: 8.0 Distal XLT trach in place CARDIOVASCULAR: Tachycardic without murmurs, gallops, or rubs. RESPIRATORY: Coarse breath sounds. GASTROINTESTINAL: Abdomen soft, non-tender, nondistended. MUSCULOSKELETAL: Contracted limbs. Wound on lower back several centimeters wide with clean margins. NEURO: Eyes are open, not tracking. Procedures 07/26- PEG replacement 07/29- right pigtail catheter placement for new pneumothorax Medications and IVs Current Medications Medications (Trade) Dose Ordered Sig/Jassi Route Start Time Stop Time Status Last Admin (NS Flush) 2 ml UNSCH PRN IVF 06/18/15 21:30 02/01/16 03:04 (NS Flush) 2 ml BID IVF 06/19/15 09:00 04/07/16 23:42 (Tylenol 650 Mg/ 20 ml Liq) 650 mg Q6H PRN TUBE 06/18/15 21:30 03/31/16 19:41 (Tears Naturale Opth Soln) 1 drop TID EACH EYE 06/19/15 09:00 04/07/16 23:41 (Zofran Inj) 4 mg Q6H PRN IV 06/18/15 21:30 11/26/15 11:54 (Neurontin) 300 mg BID G-TUBE 06/19/15 09:00 04/07/16 23:40 (Lactinex) 1 tab TID PO 06/19/15 09:00 04/07/16 23:45 (Paxil) 20 mg DAILY G-TUBE 06/19/15 09:00 Hold 03/28/16 09:50 (Pill Splitter) 1 ea UNSCH PRN OTHER 06/19/15 03:30 06/28/15 09:35 (Prevacid Odt) 30 mg DAILY NG 07/08/15 09:00 04/07/16 10:27 (Morphine Inj) 2 mg Q3H PRN IV PUSH 07/28/15 00:45 03/31/16 19:41 (Lovenox Inj) 40 mg Q24H SQ 08/09/15 22:00 04/07/16 23:41 (Sublimaze Inj) 50 mcg Q2H PRN IV PUSH 08/15/15 15:45 01/15/16 13:10 (Santyl Oint) 1 applic DAILY TOP 08/21/15 09:00 04/07/16 10:29 (Levsin Liq) 0.125 mg Q4H PRN PO 09/06/15 11:00 03/23/16 12:49 (Brethine Inj) 1 mg UNSCH PRN SQ 12/06/15 06:45 (Ativan Inj) 1 mg Q3HR PRN IVP 12/15/15 17:00 04/01/16 01:56 (Deltasone) 2.5 mg DAILY PO 12/23/15 09:00 04/07/16 10:28 (Free Water) 200 ml Q6HR G-TUBE 01/03/16 18:00 04/08/16 05:58 (KCl 40 Meq/30 ml Liq) 20 meq DAILY GT 01/08/16 17:00 Hold 03/14/16 09:35 (Urecholine) 10 mg Q8HR PO 01/13/16 22:00 04/08/16 05:27 (Sinemet 25-100 Mg) 1.5 tab QID GT 01/14/16 21:00 04/07/16 21:00 (Peridex 0.12% Liq) 15 ml BID@08,20 MT 02/04/16 10:20 04/07/16 23:41 ([place] 5-325 Mg) 1 tab Q6H PO 03/29/16 22:00 04/08/16 05:27 A/P Problem List: (1) Sepsis ICD Code: A41.9 Status: Acute (2) HCAP (healthcare-associated pneumonia) ICD Code: J18.9 Status: Acute (3) Fever ICD Code: R50.9 Status: Resolved (4) Sepsis due to urinary tract infection ICD Code: A41.9 Status: Resolved (5) Chronic respiratory failure ICD Code: J96.10 Status: Chronic (6) Parkinson disease ICD Code: G20 Status: Chronic (7) UTI (urinary tract infection) ICD Code: N39.0 Status: Resolved (8) Encephalopathy ICD Code: G93.40 Status: Resolved (9) Feeding tube obstruction ICD Code: T85.598A Status: Resolved (10) Conjunctivitis ICD Code: H10.9 Status: Resolved (11) Hypotension ICD Code: I95.9 Status: Resolved Assessment and Plan 55-year-old male with persistent sepsis, pneumonia, respiratory failure. Patient is contracted and noninteractive. Poor prognosis. I have not been able to get in touch with the patient's daughter. I have left messages with no return calls. Appreciate palliative care following. New Sepsis sources: Tracheobronchitis and ESBL Kleb pneumo UTI MDR PSAE tracheobronchitis. ESBL MDR Kleb pneumo Cath associated UTI. h/o Recurrent aspiration tube feed related in past. Heena Cath associated UTI. - DC antibiotics per infectious disease and monitor. Chronic respiratory failure Chronic tracheostomy. Currently on continuous BiPAP. T piece off. S/P recurrent right pneumothorax status post pigtail catheter removal. On 28% FiO2 . - Suction and Levsin as needed - On prednisone taper per pulmonology. Continue with Duo nebs 4 times a day and when necessary. - Appreciate input from palliative care medicine. Metabolic Encephalopathy Parkinson's disease underlying. Appear to have permanent damage. Sometimes able to minimally respond to commands, nonverbally. - Continue Sinemet. - Ativan as needed. Malnutrition/protein calorie - moderate Status post PEG. Tolerating tube feeds. Tube clogged /. - Current Colace/senna for bowel regimen. - continue PPI.- Prevacid. - IR to replace G J tube 04/08. - Continue current tube feed. Bilateral lower extremity contractures/ Unstageable sacral ulcer. Wound care consult appreciated. - bandage changed 04/06/16. - Continue physical therapy to help with contractures. - turn q 2 hours - Agree with palliative care medicine, he cannot communicate his pain. Continue with schedule Lortab every 6 hours. GI prophylaxis: PPI. Stool softener PRN constipation. DVT PPx: Lovenox Discharge Planning Awaiting clinical improvement. Problem Qualifiers (1) Fever: Qualified Code: R50.9 - Fever, unspecified fever cause (2) Chronic respiratory failure: Qualified Code: J96.10 - Chronic respiratory failure, unspecified whether with hypoxia or hypercapnia (3) UTI (urinary tract infection): Qualified Code: N30.00 - Acute cystitis without hematuria (4) Conjunctivitis: Qualified Code: H10.9 - Conjunctivitis of left eye, unspecified conjunctivitis type Salazar Santa DO Apr 08, 2016 10:55
[2016-04-08] MEDS: COLLAGENASE OINT 30 GM TUBE TOP SCH (12:00)
[2016-04-08] MEDS ORDERED: IOHEXOL 350 MG/ML 50 ML BTL (for RAD DIAG) G-TUBE ONE (15:13)
--- NOTE | 2016-04-08 16:22 | RADRPT ---
EXAM DATE/TIME: 04/08/2016 14:38 [facility] COMPARISON: CHANGE OF GJ-TUBE CATHETER, March 17, 2016, 16:28. INDICATIONS : Patient with history of encephalopathy in need of GJ tube exchange due to clogged GJ tube. MEDICAL HISTORY : HTN, Diabetes, HLD, CAD, MRSA, C-Diff, Parkinson's disease, GERD, Dementia, Hyponatremia, UTI, E. Col i SURGICAL HISTORY : PEG tube placement, Trach, Left hip fx ENCOUNTER: Subsequent ACUITY: 7 - 11 months PAIN SCORE: 0/10 FLUORO TIME: 1.5 minutes IMAGE SERIES: 3 CONTRAST: 15 cc Omnipaque (iohexol) 350 DEVICE(S): 1.) 22 [place] Transgastric tube PROCEDURE : 1. Fluoroscopically guided gastrojejunostomy tube exchange. 2. Conscious sedation with continuous EKG and oximetry monitoring. The risks, benefits and alternatives to the procedure were explained and verbal and written consent w as obtained. The site was prepped in sterile fashion. Full sterile technique was used, including ca p, mask, sterile gloves and gown and a large sterile sheet. Hand hygiene and 2% chlorhexidine and/or betadine/alcohol prep was utilized per protocol for cutaneous antisepsis. The skin and subcutaneous tissues were infiltrated with local anesthetic solution. With fluoroscopic guidance a guidewire was passed through the previous gastrojejunostomy tube and a f resh tube was placed over the guidewire. The balloon was inflated with appropriate volume of saline. Injection of positive contrast demonstrates good position of the gastric and jejunal lumens of the tube. Conscious sedation was performed with the prescribed dosages and duration as above in the presence of an independent trained radiology nurse to assist in the monitoring of the patient. EKG and oximetry remained stable throughout the procedure. The patient tolerated the procedure well and there were n o complications. The patient was sent to post anesthesia recovery in stable condition. CONCLUSION: Uncomplicated gastrojejunostomy tube exchange as above. John Anderson MD on April 08, 2016 at 16:16 Board Certified Radiologist. This report was verified electronically.
[2016-04-08] MEDS: ENOXAPARIN SODIUM 40 MG/0.4 ML SYRINGE SQ SCH (23:22)
[2016-04-09] VITALS (10 sets, daily range): BP systolic 90–135; BP diastolic 59–82; PULSE 73–96; RESP 18–22; TEMP 96.6–98.2; O2SAT 62–98
[2016-04-09] MEDS: ACETAMINOPHEN/HYDROcodone 325 MG/5 MG TAB PO SCH ×4 (05:30→22:00)
[2016-04-09] MEDS: BETHANECHOL CHL 10 MG TAB PO SCH ×3 (05:30→22:18)
[2016-04-09] MEDS: FREE WATER G-TUBE SCH ×4 (05:31→22:32)
[2016-04-09] MEDS: ARTIFICIAL TEARS OPTH SOLN 15 ML BTL EACH EYE SCH ×3 (09:00→18:01)
[2016-04-09] MEDS: SODIUM CHLORIDE 0.9% FLUSH 5 ML FLUSH IVF SCH ×2 (09:00→22:18)
[2016-04-09] MEDS: CHLORHEXIDINE GLUCONATE 0.12% 30 ML CUP MT SCH ×2 (10:42→22:17)
[2016-04-09] MEDS: LANSOPRAZOLE SOLUTAB 30 MG TAB NG SCH (10:43)
[2016-04-09] MEDS: GABAPENTIN 300 MG CAP G-TUBE SCH ×2 (10:43→22:17)
[2016-04-09] MEDS: predniSONE 5 MG TAB PO SCH (10:44)
[2016-04-09] MEDS: CARBIDOPA/LEVODOPA 25 MG/100 MG TAB GT SCH ×4 (10:44→22:18)
[2016-04-09] MEDS: LACTOBACILLUS ACIDOPHILUS TAB PO SCH ×3 (10:44→18:01)
[2016-04-09] MEDS: COLLAGENASE OINT 30 GM TUBE TOP SCH (10:45)
--- NOTE | 2016-04-09 13:41 | HHI.PR ---
Subjective Remarks The patient was more awake and alert today. He was able to open and close his eyes upon command. Discussed with nursing. The patient has not been having a large amount of secretions. He has not had a bowel movement today. No acute concerns at this time. Objective Vitals Vital Signs Date Time Temp Pulse Resp B/P Pulse Ox O2 Delivery O2 Flow Rate FiO2 04/09/16 12:00 96.8 78 22 135/76 96 04/09/16 08:22 94 T-piece 6.00 40 04/09/16 08:00 98.2 96 22 129/81 91 04/09/16 07:15 99 Trach Collar 7.00 40 T-Piece 04/09/16 06:40 15 04/09/16 05:12 96 30 04/09/16 04:00 97.0 84 20 118/76 62 04/09/16 00:05 93 30 04/09/16 00:00 97.3 89 18 126/81 98 04/08/16 20:00 99 Trach Collar 7.00 40 T-Piece 04/08/16 20:00 98.0 93 20 122/68 94 04/08/16 19:00 98.0 93 20 122/68 93 04/08/16 16:42 99.3 77 20 166/87 96 I/O 04/08/16 04/08/16 04/08/16 04/09/16 04/09/16 04/09/16 07:00 15:00 23:00 07:00 15:00 23:00 Output Total 400 ml 450 ml 950 ml Balance -400 ml -450 ml -950 ml Output Urine Total 400 ml 450 ml 950 ml # Bowel Movements 1 Result Diagram: 04/07/16 0812 04/05/16 0725 Imaging Last Impressions Tube Change 04/08/16 0000 Signed Impressions: Service Date/Time: Friday, April 08, 2016 14:38 - CONCLUSION: Uncomplicated gastrojejunostomy tube exchange as above. John Andesron MD Chest X-Ray 03/31/16 0000 Signed Impressions: Service Date/Time: March 08:59 - CONCLUSION: No consolidative infiltrates seen. Some patchy areas of opacity at the left base may represent developing infiltrate. Recommend followup films. Tai Jaquez MD Tube Check 02/12/16 0000 Signed Impressions: Service Date/Time: Friday, February 12, 2016 16:08 - CONCLUSION: Uncomplicated tube injection as above. Blaine Jackson MD Gastrostomy Tube Change 01/15/16 0000 Signed Impressions: Service Date/Time: Friday, January 15, 2016 12:28 - CONCLUSION: Successful GJ tube exchange as above. Scott Goode MD Abdomen X-Ray 01/12/16 1628 Signed Impressions: Service Date/Time: Tuesday, January 12, 2016 17:35 - CONCLUSION: No evidence of obstruction or free air. Reyes Jewell MD Abdomen Ultrasound 12/06/15 0000 Signed Impressions: Service Date/Time: Sunday, December 06, 2015 17:42 - CONCLUSION: 1. The gallbladder is unremarkable with no evidence of cholelithiasis. 2. Simple cyst in the left kidney. 3. Mild pyelocaliectasis in the right kidney. Salazar Thurman MD Upper Extremity Ultrasound 10/13/15 0000 Signed Impressions: Service Date/Time: Tuesday, October 13, 2015 09:51 - CONCLUSION: 1. No evidence of deep venous thrombosis. John Anderson MD Renal Ultrasound 10/07/15 0000 Signed Impressions: Service Date/Time: Wednesday, October 07, 2015 18:29 - CONCLUSION: 1. No acute findings. 3.6 cm left renal cyst. Putnam catheter in bladder. Amaury Ellsworth MD Tunnelled Chest Tube Removal 08/05/15 1100 Signed Impressions: Service Date/Time: Wednesday, August 05, 2015 11:00 - CONCLUSION: Uncomplicated chest tube removal. Blaine Jackson MD Chest Tube Change 07/31/15 0000 Signed Impressions: Service Date/Time: Friday, July 31, 2015 14:34 - CONCLUSION: Uncomplicated reposition of previously placed chest tube as above. Blaine Jackson MD Chest Tube Insertion 07/30/15 0000 Signed Impressions: Service Date/Time: July 14:50 - CONCLUSION: Uncomplicated chest tube placement as above. Blaine Jackson MD Catheter Change 07/27/15 0000 Signed Impressions: Service Date/Time: Monday, July 27, 2015 14:43 - CONCLUSION: Uncomplicated gastrostomy tube exchange as above. Blaine Jackson MD Chest CT 07/11/15 0000 Signed Impressions: Service Date/Time: Saturday, July 11, 2015 09:49 - CONCLUSION: Scattered patchy densities significantly improved from previous study. Tiny anterior right basilar pneumothorax. Right-sided chest tube in good position. Néstor Matamoros MD Head CT 06/18/151902 Signed Impressions: Service Date/Time: June 19:31 - CONCLUSION: Diffuse atrophy unchanged. No acute intracranial findings. Kush Briscoe MD Abdomen/Pelvis CT 06/18/151902 Signed Impressions: Service Date/Time: June 19:36 - CONCLUSION: 1. Chronic nonspecific urinary bladder wall thickening. Bladder collapsed with Putnam catheter in place. 2. Chronic bilateral mid to lower lung zone groundglass opacity. 3. Nonobstructing left renal calculus. 4. Distended rectum. Kush Briscoe MD Objective Remarks GENERAL: Cachectic patient with limbs contracted. Eyes open. SKIN: Warm and dry. HEAD: Normocephalic. EYES: Left erythematous and with drainage. NECK: 8.0 Distal XLT trach in place CARDIOVASCULAR: Tachycardic without murmurs, gallops, or rubs. RESPIRATORY: Coarse breath sounds. GASTROINTESTINAL: Abdomen soft, non-tender, nondistended. MUSCULOSKELETAL: Contracted limbs. Wound on lower back several centimeters wide with clean margins. NEURO: Eyes are open, not tracking. PSYCH: Calm. Procedures 07/26- PEG replacement 07/29- right pigtail catheter placement for new pneumothorax Medications and IVs Current Medications Medications (Trade) Dose Ordered Sig/Jassi Route Start Time Stop Time Status Last Admin (NS Flush) 2 ml UNSCH PRN IVF 06/18/15 21:30 02/01/16 03:04 (NS Flush) 2 ml BID IVF 06/19/15 09:00 04/09/16 09:00 (Tylenol 650 Mg/ 20 ml Liq) 650 mg Q6H PRN TUBE 06/18/15 21:30 03/31/16 19:41 (Tears Naturale Opth Soln) 1 drop TID EACH EYE 06/19/15 09:00 04/09/16 09:00 (Zofran Inj) 4 mg Q6H PRN IV 06/18/15 21:30 11/26/15 11:54 (Neurontin) 300 mg BID G-TUBE 06/19/15 09:00 04/09/16 10:43 (Lactinex) 1 tab TID PO 06/19/15 09:00 04/09/16 10:44 (Paxil) 20 mg DAILY G-TUBE 06/19/15 09:00 Hold 03/28/16 09:50 (Pill Splitter) 1 ea UNSCH PRN OTHER 06/19/15 03:30 06/28/15 09:35 (Prevacid Odt) 30 mg DAILY NG 07/08/15 09:00 04/09/16 10:43 (Morphine Inj) 2 mg Q3H PRN IV PUSH 07/28/15 00:45 03/31/16 19:41 (Lovenox Inj) 40 mg Q24H SQ 08/09/15 22:00 04/08/16 23:22 (Sublimaze Inj) 50 mcg Q2H PRN IV PUSH 08/15/15 15:45 01/15/16 13:10 (Santyl Oint) 1 applic DAILY TOP 08/21/15 09:00 04/09/16 10:45 (Levsin Liq) 0.125 mg Q4H PRN PO 09/06/15 11:00 03/23/16 12:49 (Brethine Inj) 1 mg UNSCH PRN SQ 12/06/15 06:45 (Ativan Inj) 1 mg Q3HR PRN IVP 12/15/15 17:00 04/01/16 01:56 (Deltasone) 2.5 mg DAILY PO 12/23/15 09:00 04/09/16 10:44 (Free Water) 200 ml Q6HR G-TUBE 01/03/16 18:00 04/09/16 10:45 (KCl 40 Meq/30 ml Liq) 20 meq DAILY GT 01/08/16 17:00 Hold 03/14/16 09:35 (Urecholine) 10 mg Q8HR PO 01/13/16 22:00 04/09/16 05:30 (Sinemet 25-100 Mg) 1.5 tab QID GT 01/14/16 21:00 04/09/16 10:44 (Peridex 0.12% Liq) 15 ml BID@08,20 MT 02/04/16 10:20 04/09/16 10:42 ([place] 5-325 Mg) 1 tab Q6H PO 03/29/16 22:00 04/09/16 10:43 A/P Problem List: (1) Sepsis ICD Code: A41.9 Status: Acute (2) HCAP (healthcare-associated pneumonia) ICD Code: J18.9 Status: Acute (3) Fever ICD Code: R50.9 Status: Resolved (4) Sepsis due to urinary tract infection ICD Code: A41.9 Status: Resolved (5) Chronic respiratory failure ICD Code: J96.10 Status: Chronic (6) Parkinson disease ICD Code: G20 Status: Chronic (7) UTI (urinary tract infection) ICD Code: N39.0 Status: Resolved (8) Encephalopathy ICD Code: G93.40 Status: Resolved (9) Feeding tube obstruction ICD Code: T85.598A Status: Resolved (10) Conjunctivitis ICD Code: H10.9 Status: Resolved (11) Hypotension ICD Code: I95.9 Status: Resolved Assessment and Plan 55-year-old male with persistent sepsis, pneumonia, respiratory failure. Patient is contracted and noninteractive. Poor prognosis. I have not been able to get in touch with the patient's daughter. I have left messages with no return calls. Appreciate palliative care following. New Sepsis sources: Tracheobronchitis and ESBL Kleb pneumo UTI MDR PSAE tracheobronchitis. ESBL MDR Kleb pneumo Cath associated UTI. h/o Recurrent aspiration tube feed related in past. Heena Cath associated UTI. - DC antibiotics per infectious disease and monitor. Chronic respiratory failure Chronic tracheostomy. Currently on continuous BiPAP. T piece off. S/P recurrent right pneumothorax status post pigtail catheter removal. On 40% FiO2 3 /4. - Suction and Levsin as needed - On prednisone taper per pulmonology. Continue with Duo nebs 4 times a day and when necessary. - Appreciate input from palliative care medicine. Metabolic Encephalopathy Parkinson's disease underlying. Appear to have permanent damage. Sometimes able to minimally respond to commands, nonverbally. - Continue Sinemet. - Ativan as needed. Malnutrition/protein calorie - moderate Status post PEG. Tolerating tube feeds. Tube clogged 3/3. IR replaced tube. - Current Colace/senna for bowel regimen. - continue PPI.- Prevacid. - Continue current tube feed. Bilateral lower extremity contractures/ Unstageable sacral ulcer. Wound care consult appreciated. - bandage changed 04/06/16. - Continue physical therapy to help with contractures. - turn q 2 hours - Agree with palliative care medicine, he cannot communicate his pain. Continue with schedule Lortab every 6 hours. GI prophylaxis: PPI. Stool softener PRN constipation. DVT PPx: Lovenox Discharge Planning Awaiting clinical improvement. Problem Qualifiers (1) Fever: Qualified Code: R50.9 - Fever, unspecified fever cause (2) Chronic respiratory failure: Qualified Code: J96.10 - Chronic respiratory failure, unspecified whether with hypoxia or hypercapnia (3) UTI (urinary tract infection): Qualified Code: N30.00 - Acute cystitis without hematuria (4) Conjunctivitis: Qualified Code: H10.9 - Conjunctivitis of left eye, unspecified conjunctivitis type Salazar Santa DO Apr 09, 2016 13:41
[2016-04-09] MEDS: ENOXAPARIN SODIUM 40 MG/0.4 ML SYRINGE SQ SCH (22:17)
[2016-04-10] VITALS (12 sets, daily range): BP systolic 86–145; BP diastolic 51–78; PULSE 61–97; RESP 18–22; TEMP 96.2–98.8; O2SAT 95–98
[2016-04-10] MEDS: ACETAMINOPHEN/HYDROcodone 325 MG/5 MG TAB PO SCH ×4 (04:00→22:25)
[2016-04-10] MEDS: FREE WATER G-TUBE SCH ×4 (06:00→22:36)
[2016-04-10] MEDS: BETHANECHOL CHL 10 MG TAB PO SCH ×3 (06:45→22:26)
[2016-04-10] MEDS: LACTOBACILLUS ACIDOPHILUS TAB PO SCH ×3 (08:46→18:30)
[2016-04-10] MEDS: CARBIDOPA/LEVODOPA 25 MG/100 MG TAB GT SCH ×4 (08:47→22:26)
[2016-04-10] MEDS: LANSOPRAZOLE SOLUTAB 30 MG TAB NG SCH (08:47)
[2016-04-10] MEDS: GABAPENTIN 300 MG CAP G-TUBE SCH ×2 (08:47→22:25)
[2016-04-10] MEDS: CHLORHEXIDINE GLUCONATE 0.12% 30 ML CUP MT SCH ×2 (08:47→22:26)
[2016-04-10] MEDS: ARTIFICIAL TEARS OPTH SOLN 15 ML BTL EACH EYE SCH ×3 (08:48→18:31)
[2016-04-10] MEDS: SODIUM CHLORIDE 0.9% FLUSH 5 ML FLUSH IVF SCH ×2 (08:49→21:00)
[2016-04-10] MEDS: predniSONE 5 MG TAB PO SCH (08:49)
[2016-04-10] MEDS: COLLAGENASE OINT 30 GM TUBE TOP SCH (08:49)
--- NOTE | 2016-04-10 11:31 | HHI.PR ---
Subjective Remarks The patient was alert and responding to commands by closing his eyes and moving his hands. He appeared comfortable. Nursing mention that the patient's IV has been out and IV [place] [facility] has been having a hard time putting another IV in its place. No other acute concerns. Objective Vitals Vital Signs Date Time Temp Pulse Resp B/P Pulse Ox O2 Delivery O2 Flow Rate FiO2 04/10/16 09:52 97 T-piece 28 04/10/16 09:00 Bi-Pap 04/10/16 08:00 98.8 97 22 100/66 96 04/10/16 04:56 98 30 04/10/16 04:11 96.8 73 22 110/70 97 04/10/16 03:43 Bi-Pap 04/10/16 02:00 111/78 04/10/16 01:45 96 30 04/10/16 00:24 96.2 61 22 86/51 97 04/09/16 21:05 98 30 04/09/16 20:05 97.1 73 22 90/59 98 04/09/16 16:00 96.6 78 18 125/82 96 04/09/16 12:00 96.8 78 22 135/76 96 I/O 04/09/16 04/09/16 04/09/16 04/10/16 04/10/16 04/10/16 07:00 15:00 23:00 07:00 15:00 23:00 Output Total 950 ml 500 ml 350 ml 200 ml Balance -950 ml -500 ml -350 ml -200 ml Output Urine Total 950 ml 500 ml 350 ml 200 ml # Bowel Movements 1 1 Result Diagram: 04/07/16 0812 Imaging Last Impressions Tube Change 04/08/16 0000 Signed Impressions: Service Date/Time: Friday, April 08, 2016 14:38 - CONCLUSION: Uncomplicated gastrojejunostomy tube exchange as above. John Anderson MD Chest X-Ray 03/31/16 0000 Signed Impressions: Service Date/Time: March 08:59 - CONCLUSION: No consolidative infiltrates seen. Some patchy areas of opacity at the left base may represent developing infiltrate. Recommend followup films. Tai Jaquez MD Tube Check 02/12/16 0000 Signed Impressions: Service Date/Time: Friday, February 12, 2016 16:08 - CONCLUSION: Uncomplicated tube injection as above. Blaine Jackson MD Gastrostomy Tube Change 01/15/16 0000 Signed Impressions: Service Date/Time: Friday, January 15, 2016 12:28 - CONCLUSION: Successful GJ tube exchange as above. Scott Goode MD Abdomen X-Ray 01/12/16 1628 Signed Impressions: Service Date/Time: Tuesday, January 12, 2016 17:35 - CONCLUSION: No evidence of obstruction or free air. Reyes Jewell MD Abdomen Ultrasound 12/06/15 0000 Signed Impressions: Service Date/Time: Sunday, December 06, 2015 17:42 - CONCLUSION: 1. The gallbladder is unremarkable with no evidence of cholelithiasis. 2. Simple cyst in the left kidney. 3. Mild pyelocaliectasis in the right kidney. Salazar Thurman MD Upper Extremity Ultrasound 10/13/15 0000 Signed Impressions: Service Date/Time: Tuesday, October 13, 2015 09:51 - CONCLUSION: 1. No evidence of deep venous thrombosis. John Anderson MD Renal Ultrasound 10/07/15 0000 Signed Impressions: Service Date/Time: Wednesday, October 07, 2015 18:29 - CONCLUSION: 1. No acute findings. 3.6 cm left renal cyst. Putnam catheter in bladder. Amaury Ellsworth MD Tunnelled Chest Tube Removal 08/05/15 1100 Signed Impressions: Service Date/Time: Wednesday, August 05, 2015 11:00 - CONCLUSION: Uncomplicated chest tube removal. Blaine Jackson MD Chest Tube Change 07/31/15 0000 Signed Impressions: Service Date/Time: Friday, July 31, 2015 14:34 - CONCLUSION: Uncomplicated reposition of previously placed chest tube as above. Blaine Jackson MD Chest Tube Insertion 07/30/15 0000 Signed Impressions: Service Date/Time: July 14:50 - CONCLUSION: Uncomplicated chest tube placement as above. Blaine Jackson MD Catheter Change 07/27/15 0000 Signed Impressions: Service Date/Time: Monday, July 27, 2015 14:43 - CONCLUSION: Uncomplicated gastrostomy tube exchange as above. Blaine Jackson MD Chest CT 07/11/15 0000 Signed Impressions: Service Date/Time: Saturday, July 11, 2015 09:49 - CONCLUSION: Scattered patchy densities significantly improved from previous study. Tiny anterior right basilar pneumothorax. Right-sided chest tube in good position. Néstor Matamoros MD Head CT 06/18/151902 Signed Impressions: Service Date/Time: June 19:31 - CONCLUSION: Diffuse atrophy unchanged. No acute intracranial findings. Kush Briscoe MD Abdomen/Pelvis CT 06/18/151902 Signed Impressions: Service Date/Time: June 19:36 - CONCLUSION: 1. Chronic nonspecific urinary bladder wall thickening. Bladder collapsed with Putnam catheter in place. 2. Chronic bilateral mid to lower lung zone groundglass opacity. 3. Nonobstructing left renal calculus. 4. Distended rectum. Kush Briscoe MD Objective Remarks GENERAL: Cachectic patient with limbs contracted. Eyes open. SKIN: Warm and dry. HEAD: Normocephalic. EYES: Left erythematous and with drainage. NECK: 8.0 Distal XLT trach in place CARDIOVASCULAR: Tachycardic without murmurs, gallops, or rubs. RESPIRATORY: Coarse breath sounds. GASTROINTESTINAL: Abdomen soft, non-tender, nondistended. MUSCULOSKELETAL: Contracted limbs. Wound on lower back several centimeters wide with clean margins. NEURO: Eyes are open, not tracking. PSYCH: Calm. Procedures 07/26- PEG replacement 07/29- right pigtail catheter placement for new pneumothorax Medications and IVs Current Medications Medications (Trade) Dose Ordered Sig/Jassi Route Start Time Stop Time Status Last Admin (NS Flush) 2 ml UNSCH PRN IVF 06/18/15 21:30 02/01/16 03:04 (NS Flush) 2 ml BID IVF 06/19/15 09:00 04/09/16 22:18 (Tylenol 650 Mg/ 20 ml Liq) 650 mg Q6H PRN TUBE 06/18/15 21:30 03/31/16 19:41 (Tears Naturale Opth Soln) 1 drop TID EACH EYE 06/19/15 09:00 04/10/16 08:48 (Zofran Inj) 4 mg Q6H PRN IV 06/18/15 21:30 11/26/15 11:54 (Neurontin) 300 mg BID G-TUBE 06/19/15 09:00 04/10/16 08:47 (Lactinex) 1 tab TID PO 06/19/15 09:00 04/10/16 08:46 (Paxil) 20 mg DAILY G-TUBE 06/19/15 09:00 Hold 03/28/16 09:50 (Pill Splitter) 1 ea UNSCH PRN OTHER 06/19/15 03:30 06/28/15 09:35 (Prevacid Odt) 30 mg DAILY NG 07/08/15 09:00 04/10/16 08:47 (Morphine Inj) 2 mg Q3H PRN IV PUSH 07/28/15 00:45 03/31/16 19:41 (Lovenox Inj) 40 mg Q24H SQ 08/09/15 22:00 04/09/16 22:17 (Sublimaze Inj) 50 mcg Q2H PRN IV PUSH 08/15/15 15:45 01/15/16 13:10 (Santyl Oint) 1 applic DAILY TOP 08/21/15 09:00 04/09/16 10:45 (Levsin Liq) 0.125 mg Q4H PRN PO 09/06/15 11:00 03/23/16 12:49 (Brethine Inj) 1 mg UNSCH PRN SQ 12/06/15 06:45 (Ativan Inj) 1 mg Q3HR PRN IVP 12/15/15 17:00 04/01/16 01:56 (Deltasone) 2.5 mg DAILY PO 12/23/15 09:00 04/10/16 08:49 (Free Water) 200 ml Q6HR G-TUBE 01/03/16 18:00 04/10/16 06:00 (KCl 40 Meq/30 ml Liq) 20 meq DAILY GT 01/08/16 17:00 Hold 03/14/16 09:35 (Urecholine) 10 mg Q8HR PO 01/13/16 22:00 04/10/16 06:45 (Sinemet 25-100 Mg) 1.5 tab QID GT 01/14/16 21:00 04/10/16 08:47 (Peridex 0.12% Liq) 15 ml BID@08,20 MT 02/04/16 10:20 04/10/16 08:47 ([place] 5-325 Mg) 1 tab Q6H PO 03/29/16 22:00 04/10/16 08:47 A/P Problem List: (1) Sepsis ICD Code: A41.9 Status: Acute (2) HCAP (healthcare-associated pneumonia) ICD Code: J18.9 Status: Acute (3) Fever ICD Code: R50.9 Status: Resolved (4) Sepsis due to urinary tract infection ICD Code: A41.9 Status: Resolved (5) Chronic respiratory failure ICD Code: J96.10 Status: Chronic (6) Parkinson disease ICD Code: G20 Status: Chronic (7) UTI (urinary tract infection) ICD Code: N39.0 Status: Resolved (8) Encephalopathy ICD Code: G93.40 Status: Resolved (9) Feeding tube obstruction ICD Code: T85.598A Status: Resolved (10) Conjunctivitis ICD Code: H10.9 Status: Resolved (11) Hypotension ICD Code: I95.9 Status: Resolved Assessment and Plan 55-year-old male with persistent sepsis, pneumonia, respiratory failure. Patient is contracted and noninteractive. Poor prognosis. I have not been able to get in touch with the patient's daughter. I have left messages with no return calls. Appreciate palliative care following. New sepsis sources: Tracheobronchitis and ESBL Kleb pneumo UTI MDR PSAE tracheobronchitis. ESBL MDR Kleb pneumo Cath associated UTI. h/o Recurrent aspiration tube feed related in past. Heena Cath associated UTI. - DC antibiotics per infectious disease and monitor. Chronic respiratory failure Chronic tracheostomy. Currently on continuous BiPAP. T piece off. S/P recurrent right pneumothorax status post pigtail catheter removal. On 28% FiO2 . - Suction and Levsin as needed - On prednisone taper per pulmonology. Continue with Duo nebs 4 times a day and when necessary. - Appreciate input from palliative care medicine. Metabolic Encephalopathy Parkinson's disease underlying. Appear to have permanent damage. Sometimes able to minimally respond to commands, nonverbally. - Continue Sinemet. - Ativan as needed. Malnutrition/protein calorie - moderate Status post PEG. Tolerating tube feeds. Tube clogged 04/08. IR replaced tube. - Current Colace/senna for bowel regimen. - continue PPI.- Prevacid. - Continue current tube feed. Bilateral lower extremity contractures/ Unstageable sacral ulcer. Wound care consult appreciated. - bandage changed 04/06/16. - Continue physical therapy to help with contractures. - turn q 2 hours - Agree with palliative care medicine, he cannot communicate his pain. Continue with schedule Lortab every 6 hours. GI prophylaxis: PPI. Stool softener PRN constipation. DVT PPx: Lovenox Discharge Planning Awaiting clinical improvement. Problem Qualifiers (1) Fever: Qualified Code: R50.9 - Fever, unspecified fever cause (2) Chronic respiratory failure: Qualified Code: J96.10 - Chronic respiratory failure, unspecified whether with hypoxia or hypercapnia (3) UTI (urinary tract infection): Qualified Code: N30.00 - Acute cystitis without hematuria (4) Conjunctivitis: Qualified Code: H10.9 - Conjunctivitis of left eye, unspecified conjunctivitis type Salazar Santa DO Apr 10, 2016 11:31
[2016-04-10] MEDS: MORPHINE SULFATE 4 MG/ML INJ IM PRN (15:19)
[2016-04-10] MEDS: ENOXAPARIN SODIUM 40 MG/0.4 ML SYRINGE SQ SCH (22:25)
[2016-04-11] VITALS (10 sets, daily range): BP systolic 95–139; BP diastolic 53–72; PULSE 68–88; RESP 18–30; TEMP 96.7–99.4; O2SAT 95–99
[2016-04-11] MEDS: LORazepam 1 MG TAB G-TUBE PRN (01:59)
[2016-04-11] MEDS: FREE WATER G-TUBE SCH ×3 (06:00→17:11)
[2016-04-11] MEDS: ACETAMINOPHEN/HYDROcodone 325 MG/5 MG TAB PO SCH ×3 (06:47→17:10)
[2016-04-11] MEDS: BETHANECHOL CHL 10 MG TAB PO SCH ×2 (06:48→15:11)
--- NOTE | 2016-04-11 08:12 | RADRPT ---
EXAM DATE/TIME: 04/11/2016 06:11 [facility] COMPARISON: CHEST SINGLE AP, March 31, 2016, 8:59. INDICATIONS: Short of breath, evaluate infiltrate MEDICAL HISTORY: Diabetes mellitus type II. Respiratory failure SURGICAL HISTORY: G-tube ENCOUNTER: Subsequent ACUITY: 2 months PAIN SCORE: Non-responsive. LOCATION: Bilateral chest FINDINGS: Trache tube is in good position. Very minimal parenchymal changes are present in the left upper lobe partially obscured by the trache tube. Right lung is clear. Heart and pulmonary vascularity normal. Portion of bony skeleton visualized un remarkable. CONCLUSION: 1. Interval improvement and better aeration in appearance of left base. 2. Minimal parenchymal changes persist in the left upper lobe, obscured by trache tube. Milo Jackson MD FACR on April 11, 2016 at 7:23 Board Certified Radiologist. This report was verified electronically.
[2016-04-11] MEDS: SODIUM CHLORIDE 0.9% FLUSH 5 ML FLUSH IVF SCH (09:00)
[2016-04-11] MEDS: LACTOBACILLUS ACIDOPHILUS TAB PO SCH ×3 (10:04→17:10)
[2016-04-11] MEDS: CARBIDOPA/LEVODOPA 25 MG/100 MG TAB GT SCH ×3 (10:04→17:11)
[2016-04-11] MEDS: predniSONE 5 MG TAB PO SCH (10:05)
[2016-04-11] MEDS: LANSOPRAZOLE SOLUTAB 30 MG TAB NG SCH (10:05)
[2016-04-11] MEDS: GABAPENTIN 300 MG CAP G-TUBE SCH (10:05)
[2016-04-11] MEDS: CHLORHEXIDINE GLUCONATE 0.12% 30 ML CUP MT SCH (10:06)
[2016-04-11] MEDS: ARTIFICIAL TEARS OPTH SOLN 15 ML BTL EACH EYE SCH ×3 (10:06→17:11)
[2016-04-11] MEDS: COLLAGENASE OINT 30 GM TUBE TOP SCH (10:06)
--- NOTE | 2016-04-11 18:08 | HHI.PR ---
Subjective Remarks Awake and remains stable and 0n T Bar at FIO2 30 % .Trying to talk. Weak in all limbs. No fever. Objective Vital Signs Date Time Temp Pulse Resp B/P Pulse Ox O2 Delivery O2 Flow Rate FiO2 04/11/16 16:00 98.1 68 18 100/58 98 04/11/16 12:00 98.7 78 18 98/56 99 04/11/16 09:50 98 T-piece 28 04/11/16 09:50 98 04/11/16 08:00 98.6 68 20 100/56 98 04/11/16 05:25 96.7 79 21 120/68 97 04/11/16 03:05 95 30 04/11/16 02:20 Bi-Pap 30 04/11/16 01:56 88 30 139/72 96 04/11/16 00:11 99.4 83 21 95/54 96 04/10/16 23:37 95 30 04/10/16 21:19 98.8 86 21 131/56 97 04/10/16 20:30 95 30 I/O 04/10/16 04/10/16 04/10/16 04/11/16 04/11/16 04/11/16 07:00 15:00 23:00 07:00 15:00 23:00 Intake Total 622 ml Output Total 200 ml 800 ml 400 ml 300 ml 250 ml Balance -200 ml -800 ml -400 ml 322 ml -250 ml Tube Feeding 322 ml Other 300 ml Output Urine Total 200 ml 800 ml 400 ml 300 ml 250 ml # Bowel Movements 2 0 0 Result Diagram: 04/07/16 0812 Objective Remarks This is a thin white male who is , awake with a trach tube in place. HEENT: Pupils are equal and reactive to light. CHEST:Decreased breath sounds,and no crackles. CARDIOVASCULAR: S1 and S2 is normal.No murmur. ABDOMEN: Soft, nondistended. BS +. He has a PEG and J tube in place. EXTREMITIES: Contractures.muscle wasting.Reflexes 1 + NEURO: Awake and has weak extremities. Skin is dry . Assessment and Plan Assessment and Plan IMPRESSION 1. Chronic Respiratory failure. 2. Sepsis, Aspiration. 3. Left basal Pneumonia, Resolved 4. Bi Basal pneumonia 5. Parkinson's disease 6. Dementia. 7. Severe Deconditioning. Plan : 1. Cont Bipap at 10/5 CM FIO2 30 % from 9 pm to 7 am 2. Nebs Bid , duoneb. 3. Tube feeds at [address] on T Bar FIo2 28 % upto 14 hrs. 5. Levsin .125 mg tid prn. 6. Cont Trach toilet and lavage. 7. Labs in am. 1 Darren Kiser MD Apr 11, 2016 18:08
--- NOTE | 2016-04-11 18:19 | HHI.PR ---
Subjective Remarks The patient was alert and trying to talk. He appeared comfortable. Discussed with nursing. Objective Vitals Vital Signs Date Time Temp Pulse Resp B/P Pulse Ox O2 Delivery O2 Flow Rate FiO2 04/11/16 16:00 98.1 68 18 100/58 98 04/11/16 12:00 98.7 78 18 98/56 99 04/11/16 09:50 98 T-piece 28 04/11/16 09:50 98 04/11/16 08:00 98.6 68 20 100/56 98 04/11/16 05:25 96.7 79 21 120/68 97 04/11/16 03:05 95 30 04/11/16 02:20 Bi-Pap 30 04/11/16 01:56 88 30 139/72 96 04/11/16 00:11 99.4 83 21 95/54 96 04/10/16 23:37 95 30 04/10/16 21:19 98.8 86 21 131/56 97 04/10/16 20:30 95 30 I/O 04/10/16 04/10/16 04/10/16 04/11/16 04/11/16 04/11/16 07:00 15:00 23:00 07:00 15:00 23:00 Intake Total 622 ml Output Total 200 ml 800 ml 400 ml 300 ml 250 ml Balance -200 ml -800 ml -400 ml 322 ml -250 ml Tube Feeding 322 ml Other 300 ml Output Urine Total 200 ml 800 ml 400 ml 300 ml 250 ml # Bowel Movements 2 0 0 Result Diagram: 04/07/16 0812 Imaging Last Impressions Chest X-Ray 04/11/16 0000 Signed Impressions: Service Date/Time: Monday, April 11, 2016 06:11 - CONCLUSION: 1. Interval improvement and better aeration in appearance of left base. 2. Minimal parenchymal changes persist in the left upper lobe, obscured by trache tube. Milo Jackson MD FACR Tube Change 04/08/16 0000 Signed Impressions: Service Date/Time: Friday, April 08, 2016 14:38 - CONCLUSION: Uncomplicated gastrojejunostomy tube exchange as above. John Anderson MD Tube Check 02/12/16 0000 Signed Impressions: Service Date/Time: Friday, February 12, 2016 16:08 - CONCLUSION: Uncomplicated tube injection as above. Blaine Jackson MD Gastrostomy Tube Change 01/15/16 0000 Signed Impressions: Service Date/Time: Friday, January 15, 2016 12:28 - CONCLUSION: Successful GJ tube exchange as above. Scott Goode MD Abdomen X-Ray 01/12/16 1628 Signed Impressions: Service Date/Time: Tuesday, January 12, 2016 17:35 - CONCLUSION: No evidence of obstruction or free air. Reyes Jewell MD Abdomen Ultrasound 12/06/15 0000 Signed Impressions: Service Date/Time: Sunday, December 06, 2015 17:42 - CONCLUSION: 1. The gallbladder is unremarkable with no evidence of cholelithiasis. 2. Simple cyst in the left kidney. 3. Mild pyelocaliectasis in the right kidney. Salazar Thurman MD Upper Extremity Ultrasound 10/13/15 0000 Signed Impressions: Service Date/Time: Tuesday, October 13, 2015 09:51 - CONCLUSION: 1. No evidence of deep venous thrombosis. John Anderson MD Renal Ultrasound 10/07/15 0000 Signed Impressions: Service Date/Time: Wednesday, October 07, 2015 18:29 - CONCLUSION: 1. No acute findings. 3.6 cm left renal cyst. Putnam catheter in bladder. Amaury Ellsworth MD Tunnelled Chest Tube Removal 08/05/15 1100 Signed Impressions: Service Date/Time: Wednesday, August 05, 2015 11:00 - CONCLUSION: Uncomplicated chest tube removal. Blaine Jackson MD Chest Tube Change 07/31/15 0000 Signed Impressions: Service Date/Time: Friday, July 31, 2015 14:34 - CONCLUSION: Uncomplicated reposition of previously placed chest tube as above. Blaine Jackson MD Chest Tube Insertion 07/30/15 0000 Signed Impressions: Service Date/Time: July 14:50 - CONCLUSION: Uncomplicated chest tube placement as above. Blaine Jackson MD Catheter Change 07/27/15 0000 Signed Impressions: Service Date/Time: Monday, July 27, 2015 14:43 - CONCLUSION: Uncomplicated gastrostomy tube exchange as above. Blaine Jackson MD Chest CT 07/11/15 0000 Signed Impressions: Service Date/Time: Saturday, July 11, 2015 09:49 - CONCLUSION: Scattered patchy densities significantly improved from previous study. Tiny anterior right basilar pneumothorax. Right-sided chest tube in good position. Néstor Matamoros MD Head CT 06/18/151902 Signed Impressions: Service Date/Time: June 19:31 - CONCLUSION: Diffuse atrophy unchanged. No acute intracranial findings. Kush Briscoe MD Abdomen/Pelvis CT 06/18/151902 Signed Impressions: Service Date/Time: June 19:36 - CONCLUSION: 1. Chronic nonspecific urinary bladder wall thickening. Bladder collapsed with Putnam catheter in place. 2. Chronic bilateral mid to lower lung zone groundglass opacity. 3. Nonobstructing left renal calculus. 4. Distended rectum. Kush Briscoe MD Objective Remarks GENERAL: Cachectic patient with limbs contracted. Eyes open. SKIN: Warm and dry. HEAD: Normocephalic. EYES: Left erythematous and with drainage. NECK: 8.0 Distal XLT trach in place CARDIOVASCULAR: Tachycardic without murmurs, gallops, or rubs. RESPIRATORY: Coarse breath sounds. GASTROINTESTINAL: Abdomen soft, non-tender, nondistended. MUSCULOSKELETAL: Contracted limbs. Wound on lower back several centimeters wide with clean margins. NEURO: Eyes are open, not tracking. PSYCH: Calm. Procedures 07/26- PEG replacement 07/29- right pigtail catheter placement for new pneumothorax Medications and IVs Current Medications Medications (Trade) Dose Ordered Sig/Jassi Route Start Time Stop Time Status Last Admin (NS Flush) 2 ml UNSCH PRN IVF 06/18/15 21:30 02/01/16 03:04 (NS Flush) 2 ml BID IVF 06/19/15 09:00 04/09/16 22:18 (Tylenol 650 Mg/ 20 ml Liq) 650 mg Q6H PRN TUBE 06/18/15 21:30 03/31/16 19:41 (Tears Naturale Opth Soln) 1 drop TID EACH EYE 06/19/15 09:00 04/11/16 17:11 (Zofran Inj) 4 mg Q6H PRN IV 06/18/15 21:30 11/26/15 11:54 (Neurontin) 300 mg BID G-TUBE 06/19/15 09:00 04/11/16 10:05 (Lactinex) 1 tab TID PO 06/19/15 09:00 04/11/16 17:10 (Paxil) 20 mg DAILY G-TUBE 06/19/15 09:00 Hold 03/28/16 09:50 (Pill Splitter) 1 ea UNSCH PRN OTHER 06/19/15 03:30 06/28/15 09:35 (Prevacid Odt) 30 mg DAILY NG 07/08/15 09:00 04/11/16 10:05 (Morphine Inj) 2 mg Q3H PRN IV PUSH 07/28/15 00:45 Hold 03/31/16 19:41 (Lovenox Inj) 40 mg Q24H SQ 08/09/15 22:00 04/10/16 22:25 (Sublimaze Inj) 50 mcg Q2H PRN IV PUSH 08/15/15 15:45 01/15/16 13:10 (Santyl Oint) 1 applic DAILY TOP 08/21/15 09:00 04/11/16 10:06 (Levsin Liq) 0.125 mg Q4H PRN PO 09/06/15 11:00 03/23/16 12:49 (Brethine Inj) 1 mg UNSCH PRN SQ 12/06/15 06:45 (Deltasone) 2.5 mg DAILY PO 12/23/15 09:00 04/11/16 10:05 (Free Water) 200 ml Q6HR G-TUBE 01/03/16 18:00 04/11/16 17:11 (KCl 40 Meq/30 ml Liq) 20 meq DAILY GT 01/08/16 17:00 Hold 03/14/16 09:35 (Urecholine) 10 mg Q8HR PO 01/13/16 22:00 04/11/16 15:11 (Sinemet 25-100 Mg) 1.5 tab QID GT 01/14/16 21:00 04/11/16 17:11 (Peridex 0.12% Liq) 15 ml BID@08,20 MT 02/04/16 10:20 04/11/16 10:06 ([place] 5-325 Mg) 1 tab Q6H PO 03/29/16 22:00 04/11/16 17:10 (Ativan) 1 mg Q6H PRN G-TUBE 04/10/16 11:30 04/11/16 01:59 (Morphine Inj) 2 mg Q4HR PRN IM 04/10/16 15:00 04/10/16 15:19 A/P Problem List: (1) Sepsis ICD Code: A41.9 Status: Acute (2) HCAP (healthcare-associated pneumonia) ICD Code: J18.9 Status: Acute (3) Fever ICD Code: R50.9 Status: Resolved (4) Sepsis due to urinary tract infection ICD Code: A41.9 Status: Resolved (5) Chronic respiratory failure ICD Code: J96.10 Status: Chronic (6) Parkinson disease ICD Code: G20 Status: Chronic (7) UTI (urinary tract infection) ICD Code: N39.0 Status: Resolved (8) Encephalopathy ICD Code: G93.40 Status: Resolved (9) Feeding tube obstruction ICD Code: T85.598A Status: Resolved (10) Conjunctivitis ICD Code: H10.9 Status: Resolved (11) Hypotension ICD Code: I95.9 Status: Resolved Assessment and Plan 55-year-old male with persistent sepsis, pneumonia, respiratory failure. Patient is contracted and noninteractive. Poor prognosis. I have not been able to get in touch with the patient's daughter. I have left messages with no return calls. Appreciate palliative care following. New sepsis sources: Tracheobronchitis and ESBL Kleb pneumo UTI MDR PSAE tracheobronchitis. ESBL MDR Kleb pneumo Cath associated UTI. h/o Recurrent aspiration tube feed related in past. Heena Cath associated UTI. - DC antibiotics per infectious disease and monitor. Chronic respiratory failure Chronic tracheostomy. Currently on continuous BiPAP. T piece off. S/P recurrent right pneumothorax status post pigtail catheter removal. On 28% FiO2 . - Suction and Levsin as needed - On prednisone taper per pulmonology. Continue with Duo nebs 4 times a day and when necessary. - Appreciate input from palliative care medicine. Metabolic Encephalopathy Parkinson's disease underlying. Appear to have permanent damage. Sometimes able to minimally respond to commands, nonverbally. - Continue Sinemet. - Ativan as needed. Malnutrition/protein calorie - moderate Status post PEG. Tolerating tube feeds. Tube clogged 3/. IR replaced tube. - Current Colace/senna for bowel regimen. - continue PPI. - Continue current tube feed. Tolerating 3/6. Bilateral lower extremity contractures/ Unstageable sacral ulcer. Wound care consult appreciated. - Continue wound care. - Continue physical therapy to help with contractures. - turn q 2 hours - Agree with palliative care medicine, he cannot communicate his pain. Continue with schedule Lortab every 6 hours. GI prophylaxis: PPI. Stool softener PRN constipation. DVT PPx: Lovenox Discharge Planning Awaiting clinical improvement. Problem Qualifiers (1) Fever: Qualified Code: R50.9 - Fever, unspecified fever cause (2) Chronic respiratory failure: Qualified Code: J96.10 - Chronic respiratory failure, unspecified whether with hypoxia or hypercapnia (3) UTI (urinary tract infection): Qualified Code: N30.00 - Acute cystitis without hematuria (4) Conjunctivitis: Qualified Code: H10.9 - Conjunctivitis of left eye, unspecified conjunctivitis type Salazar Santa DO Apr 11, 2016 18:19
[2016-04-11] MEDS: ENOXAPARIN SODIUM 40 MG/0.4 ML SYRINGE SQ SCH (22:00)
[2016-04-12] VITALS (10 sets, daily range): BP systolic 102–158; BP diastolic 68–85; PULSE 76–98; RESP 20–26; TEMP 96.4–99.8; O2SAT 64–100
[2016-04-12] MEDS: ACETAMINOPHEN/HYDROcodone 325 MG/5 MG TAB PO SCH ×5 (00:18→22:00)
[2016-04-12] MEDS: CHLORHEXIDINE GLUCONATE 0.12% 30 ML CUP MT SCH ×3 (00:19→23:40)
[2016-04-12] MEDS: BETHANECHOL CHL 10 MG TAB PO SCH ×4 (00:20→23:43)
[2016-04-12] MEDS: SODIUM CHLORIDE 0.9% FLUSH 5 ML FLUSH IVF SCH ×3 (00:20→21:00)
[2016-04-12] MEDS: GABAPENTIN 300 MG CAP G-TUBE SCH ×3 (00:20→23:41)
[2016-04-12] MEDS: CARBIDOPA/LEVODOPA 25 MG/100 MG TAB GT SCH ×5 (00:21→23:41)
[2016-04-12] MEDS: FREE WATER G-TUBE SCH ×5 (06:00→23:43)
[2016-04-12] MEDS: LACTOBACILLUS ACIDOPHILUS TAB PO SCH ×3 (10:13→18:51)
[2016-04-12] MEDS: predniSONE 5 MG TAB PO SCH (10:13)
[2016-04-12] MEDS: LANSOPRAZOLE SOLUTAB 30 MG TAB NG SCH (10:13)
[2016-04-12] MEDS: ARTIFICIAL TEARS OPTH SOLN 15 ML BTL EACH EYE SCH ×3 (10:15→18:51)
[2016-04-12] MEDS: COLLAGENASE OINT 30 GM TUBE TOP SCH (10:15)
[2016-04-12 10:36] LABS: HEMATOCRIT 33.5 % (39.0-51.0); MEAN CELL VOLUME 84.3 FL (80.0-100.0); MEAN CORPUSCULAR HEMOGLOBIN 27.5 PG (27.0-34.0); MEAN CORPUSCULAR HGB CONC 32.6 % (32.0-36.0); PLATELET COUNT 240 TH/MM3 (150-450); RED BLOOD COUNT 3.98 MIL/MM3 (4.50-5.90); RED CELL DISTRIBUTION WIDTH 18.4 % (11.6-17.2); REVIEW FLAG FINAL; WHITE BLOOD COUNT 8.9 TH/MM3 (4.0-11.0)
[2016-04-12 10:53] LABS: MAGNESIUM 2.1 MG/DL (1.5-2.5); POTASSIUM 4.7 MEQ/L (3.5-5.1)
--- NOTE | 2016-04-12 10:54 | HHI.PR ---
Subjective Remarks Patient appears in nad. Nonverbal. Per nurse tube was clogged and will try to flush and dislodge. Otherwise will need IR on consult if unsuccessful attempt by the nurse. discussed with the nurse. Objective Vitals Vital Signs Date Time Temp Pulse Resp B/P Pulse Ox O2 Delivery O2 Flow Rate FiO2 04/12/16 08:20 98 T-piece 6.00 28 04/12/16 08:00 98.9 76 20 132/69 99 04/12/16 05:45 98.8 98 26 158/85 100 04/12/16 05:01 97 30 04/12/16 01:48 22 04/12/16 01:20 96.4 78 22 123/68 95 04/12/16 00:58 64 30 04/12/16 00:30 Bi-Pap 30 04/11/16 21:15 99.1 77 22 99/53 96 04/11/16 20:45 96 30 04/11/16 16:00 98.1 68 18 100/58 98 04/11/16 12:00 98.7 78 18 98/56 99 I/O 04/11/16 04/11/16 04/11/16 04/12/16 04/12/16 04/12/16 07:00 15:00 23:00 07:00 15:00 23:00 Intake Total 622 ml 762 ml Output Total 300 ml 250 ml 150 ml 200 ml Balance 322 ml -250 ml -150 ml -200 ml 762 ml Tube Feeding 322 ml 762 ml Other 300 ml Output Urine Total 300 ml 250 ml 150 ml 200 ml # Bowel Movements 0 1 1 Result Diagram: 04/12/16 1010 Imaging Last Impressions Chest X-Ray 04/11/16 0000 Signed Impressions: Service Date/Time: Monday, April 11, 2016 06:11 - CONCLUSION: 1. Interval improvement and better aeration in appearance of left base. 2. Minimal parenchymal changes persist in the left upper lobe, obscured by trache tube. Milo Jackson MD FACR Tube Change 04/08/16 0000 Signed Impressions: Service Date/Time: Friday, April 08, 2016 14:38 - CONCLUSION: Uncomplicated gastrojejunostomy tube exchange as above. John Anderson MD Tube Check 02/12/16 0000 Signed Impressions: Service Date/Time: Friday, February 12, 2016 16:08 - CONCLUSION: Uncomplicated tube injection as above. Blaine Jackson MD Gastrostomy Tube Change 01/15/16 0000 Signed Impressions: Service Date/Time: Friday, January 15, 2016 12:28 - CONCLUSION: Successful GJ tube exchange as above. Scott Goode MD Abdomen X-Ray 01/12/16 1628 Signed Impressions: Service Date/Time: Tuesday, January 12, 2016 17:35 - CONCLUSION: No evidence of obstruction or free air. Reyes Jewell MD Abdomen Ultrasound 12/06/15 0000 Signed Impressions: Service Date/Time: Sunday, December 06, 2015 17:42 - CONCLUSION: 1. The gallbladder is unremarkable with no evidence of cholelithiasis. 2. Simple cyst in the left kidney. 3. Mild pyelocaliectasis in the right kidney. Salazar Thurman MD Upper Extremity Ultrasound 10/13/15 0000 Signed Impressions: Service Date/Time: Tuesday, October 13, 2015 09:51 - CONCLUSION: 1. No evidence of deep venous thrombosis. John Anderson MD Renal Ultrasound 10/07/15 0000 Signed Impressions: Service Date/Time: Wednesday, October 07, 2015 18:29 - CONCLUSION: 1. No acute findings. 3.6 cm left renal cyst. Putnam catheter in bladder. Amaury Ellsworth MD Tunnelled Chest Tube Removal 08/05/15 1100 Signed Impressions: Service Date/Time: Wednesday, August 05, 2015 11:00 - CONCLUSION: Uncomplicated chest tube removal. Blaine Jackson MD Chest Tube Change 07/31/15 0000 Signed Impressions: Service Date/Time: Friday, July 31, 2015 14:34 - CONCLUSION: Uncomplicated reposition of previously placed chest tube as above. Blaine Jackson MD Chest Tube Insertion 07/30/15 0000 Signed Impressions: Service Date/Time: July 14:50 - CONCLUSION: Uncomplicated chest tube placement as above. Blaine Jackson MD Catheter Change 07/27/15 0000 Signed Impressions: Service Date/Time: Monday, July 27, 2015 14:43 - CONCLUSION: Uncomplicated gastrostomy tube exchange as above. Blaine Jackson MD Chest CT 07/11/15 0000 Signed Impressions: Service Date/Time: Saturday, July 11, 2015 09:49 - CONCLUSION: Scattered patchy densities significantly improved from previous study. Tiny anterior right basilar pneumothorax. Right-sided chest tube in good position. Néstor Matamoros MD Head CT 06/18/151902 Signed Impressions: Service Date/Time: June 19:31 - CONCLUSION: Diffuse atrophy unchanged. No acute intracranial findings. Kush Briscoe MD Abdomen/Pelvis CT 06/18/151902 Signed Impressions: Service Date/Time: June 19:36 - CONCLUSION: 1. Chronic nonspecific urinary bladder wall thickening. Bladder collapsed with Putnam catheter in place. 2. Chronic bilateral mid to lower lung zone groundglass opacity. 3. Nonobstructing left renal calculus. 4. Distended rectum. Kush Briscoe MD Objective Remarks GENERAL: Cachectic patient with limbs contracted. Eyes open. SKIN: Warm and dry. HEAD: Normocephalic. EYES: Left erythematous and with drainage. NECK: 8.0 Distal XLT trach in place CARDIOVASCULAR: Tachycardic without murmurs, gallops, or rubs. RESPIRATORY: Coarse breath sounds. GASTROINTESTINAL: Abdomen soft, non-tender, nondistended. MUSCULOSKELETAL: Contracted limbs. Wound on lower back several centimeters wide with clean margins. NEURO: Eyes are open, not tracking. PSYCH: Calm. Procedures 07/26- PEG replacement 07/29- right pigtail catheter placement for new pneumothorax A/P Problem List: (1) Sepsis ICD Code: A41.9 Status: Acute (2) HCAP (healthcare-associated pneumonia) ICD Code: J18.9 Status: Acute (3) Fever ICD Code: R50.9 Status: Resolved (4) Sepsis due to urinary tract infection ICD Code: A41.9 Status: Resolved (5) Chronic respiratory failure ICD Code: J96.10 Status: Chronic (6) Parkinson disease ICD Code: G20 Status: Chronic (7) UTI (urinary tract infection) ICD Code: N39.0 Status: Resolved (8) Encephalopathy ICD Code: G93.40 Status: Resolved (9) Feeding tube obstruction ICD Code: T85.598A Status: Resolved (10) Conjunctivitis ICD Code: H10.9 Status: Resolved (11) Hypotension ICD Code: I95.9 Status: Resolved Assessment and Plan 55-year-old male with persistent sepsis, pneumonia, respiratory failure. Patient is contracted and noninteractive. Poor prognosis. I have not been able to get in touch with the patient's daughter. I have left messages with no return calls. Appreciate palliative care following. New sepsis sources: Tracheobronchitis and ESBL Kleb pneumo UTI MDR PSAE tracheobronchitis. ESBL MDR Kleb pneumo Cath associated UTI. h/o Recurrent aspiration tube feed related in past. Heena Cath associated UTI. - DC antibiotics per infectious disease and monitor. Chronic respiratory failure Chronic tracheostomy. Currently on continuous BiPAP. T piece off. S/P recurrent right pneumothorax status post pigtail catheter removal. On 28% FiO2 . - Suction and Levsin as needed - On prednisone taper per pulmonology. Continue with Duo nebs 4 times a day and when necessary. - Appreciate input from palliative care medicine. Metabolic Encephalopathy Parkinson's disease underlying. Appear to have permanent damage. Sometimes able to minimally respond to commands, nonverbally. - Continue Sinemet. - Ativan as needed. Malnutrition/protein calorie - moderate Status post PEG. Tolerating tube feeds. Tube clogged 04/08. IR replaced tube. - Current Colace/senna for bowel regimen. - continue PPI. - Continue current tube feed. Malfunctioning PEG again 04/12. Nurse to flush the tube., Will consult IR if un- successful attempt by nurse. Bilateral lower extremity contractures/ Unstageable sacral ulcer. Wound care consult appreciated. - Continue wound care. - Continue physical therapy to help with contractures. - turn q 2 hours - Agree with palliative care medicine, he cannot communicate his pain. Continue with schedule Lortab every 6 hours. GI prophylaxis: PPI. Stool softener PRN constipation. DVT PPx: Lovenox Discharge Planning Awaiting clinical improvement. CM consult for DC Discussed with the patient, nurse. Problem Qualifiers (1) Fever: Qualified Code: R50.9 - Fever, unspecified fever cause (2) Chronic respiratory failure: Qualified Code: J96.10 - Chronic respiratory failure, unspecified whether with hypoxia or hypercapnia (3) UTI (urinary tract infection): Qualified Code: N30.00 - Acute cystitis without hematuria (4) Conjunctivitis: Qualified Code: H10.9 - Conjunctivitis of left eye, unspecified conjunctivitis type Cosma,Roz MD Apr 12, 2016 10:54
--- NOTE | 2016-04-12 19:24 | HHI.PR ---
Subjective Remarks No change. 0n T Bar at FIO2 30 % .Trying to talk. Weak in all limbs.good output. Objective Vital Signs Date Time Temp Pulse Resp B/P Pulse Ox O2 Delivery O2 Flow Rate FiO2 04/12/16 18:20 99 T-piece 6.00 28 04/12/16 16:00 98.6 80 20 102/68 99 04/12/16 12:00 97.1 92 20 118/68 98 04/12/16 08:20 98 T-piece 6.00 28 04/12/16 08:00 98.9 76 20 132/69 99 04/12/16 05:45 98.8 98 26 158/85 100 04/12/16 05:01 97 30 04/12/16 01:48 22 04/12/16 01:20 96.4 78 22 123/68 95 04/12/16 00:58 64 30 04/12/16 00:30 Bi-Pap 30 04/11/16 21:15 99.1 77 22 99/53 96 04/11/16 20:45 96 30 I/O 04/11/16 04/11/16 04/11/16 04/12/16 04/12/16 04/12/16 07:00 15:00 23:00 07:00 15:00 23:00 Intake Total 622 ml 762 ml Output Total 300 ml 250 ml 150 ml 200 ml 450 ml Balance 322 ml -250 ml -150 ml -200 ml 312 ml Tube Feeding 322 ml 762 ml Other 300 ml Output Urine Total 300 ml 250 ml 150 ml 200 ml 450 ml # Bowel Movements 0 1 1 Result Diagram: 04/12/16 1010 04/12/16 1010 Objective Remarks This is a thin white male who is , awake with a trach tube in place. HEENT: Pupils are equal and reactive to light. CHEST:Decreased breath sounds,and no crackles. CARDIOVASCULAR: S1 and S2 is normal.No murmur. ABDOMEN: Soft, nondistended. BS +. He has a PEG and J tube in place. EXTREMITIES: Contractures.muscle wasting.Reflexes 1 + NEURO: Awake and has weak extremities. Skin is dry . Assessment and Plan Assessment and Plan IMPRESSION 1. Chronic Respiratory failure. 2. Sepsis, Aspiration. 3. Left basal Pneumonia, Resolved 4. Bi Basal pneumonia 5. Parkinson's disease 6. Dementia. 7. Severe Deconditioning. Plan : 1. Cont Bipap at 10/5 CM FIO2 28 % from 9 pm to 7 am 2. Nebs Bid , duoneb. 3. Tube feeds at [address] on T Bar FIo2 30 % upto 14 hrs. 5. Levsin .125 mg tid prn. 6. Cont Trach toilet and lavage. 7. PT evaluation 1 Darren Kiser MD Apr 12, 2016 19:24
[2016-04-12] MEDS: ENOXAPARIN SODIUM 40 MG/0.4 ML SYRINGE SQ SCH (23:43)
[2016-04-13] VITALS (10 sets, daily range): BP systolic 84–114; BP diastolic 54–64; PULSE 61–80; RESP 18–26; TEMP 96.2–97.5; O2SAT 93–100
[2016-04-13] MEDS: ACETAMINOPHEN/HYDROcodone 325 MG/5 MG TAB PO SCH ×4 (04:50→22:00)
[2016-04-13] MEDS: FREE WATER G-TUBE SCH ×3 (06:00→17:34)
[2016-04-13] MEDS: BETHANECHOL CHL 10 MG TAB PO SCH ×2 (06:29→13:40)
[2016-04-13] MEDS: SODIUM CHLORIDE 0.9% FLUSH 5 ML FLUSH IVF SCH ×2 (09:00→21:00)
--- NOTE | 2016-04-13 10:07 | HHI.PR ---
Subjective Remarks Patient with malnutrition BMI of 14, will consult baggage clerk. He appears in nad. Tube feeding is flushed and is working. No n/v/d/c. Objective Vitals Vital Signs Date Time Temp Pulse Resp B/P Pulse Ox O2 Delivery O2 Flow Rate FiO2 04/13/16 09:45 97 T-piece 28 04/13/16 07:50 96.2 61 18 94/60 97 04/13/16 06:28 22 04/13/16 05:32 97 30 04/13/16 04:17 97.4 72 26 100/54 97 04/13/16 02:00 93 30 04/13/16 00:15 97.3 74 24 109/64 95 04/12/16 20:07 99.8 90 26 154/83 93 04/12/16 20:00 99 Trach Collar 7.00 40 T-Piece 04/12/16 18:20 99 T-piece 6.00 28 04/12/16 16:00 98.6 80 20 102/68 99 04/12/16 12:00 97.1 92 20 118/68 98 04/12/16 10:17 T-Piece I/O 04/12/16 04/12/16 04/12/16 04/13/16 04/13/16 04/13/16 07:00 15:00 23:00 07:00 15:00 23:00 Intake Total 762 ml 1078 ml Output Total 200 ml 450 ml 150 ml 200 ml Balance -200 ml 312 ml -150 ml 878 ml Tube Feeding 762 ml 678 ml Other 400 ml Output Urine Total 200 ml 450 ml 150 ml 200 ml # Bowel Movements 1 1 Result Diagram: 04/12/16 1010 04/12/16 1010 Imaging Last Impressions Chest X-Ray 04/11/16 0000 Signed Impressions: Service Date/Time: Monday, April 11, 2016 06:11 - CONCLUSION: 1. Interval improvement and better aeration in appearance of left base. 2. Minimal parenchymal changes persist in the left upper lobe, obscured by trache tube. Milo Jackson MD FACR Tube Change 04/08/16 0000 Signed Impressions: Service Date/Time: Friday, April 08, 2016 14:38 - CONCLUSION: Uncomplicated gastrojejunostomy tube exchange as above. John Anderson MD Tube Check 02/12/16 0000 Signed Impressions: Service Date/Time: Friday, February 12, 2016 16:08 - CONCLUSION: Uncomplicated tube injection as above. Blaine Jackson MD Gastrostomy Tube Change 01/15/16 0000 Signed Impressions: Service Date/Time: Friday, January 15, 2016 12:28 - CONCLUSION: Successful GJ tube exchange as above. Scott Goode MD Abdomen X-Ray 01/12/16 1628 Signed Impressions: Service Date/Time: Tuesday, January 12, 2016 17:35 - CONCLUSION: No evidence of obstruction or free air. Reyes Jewell MD Abdomen Ultrasound 12/06/15 0000 Signed Impressions: Service Date/Time: Sunday, December 06, 2015 17:42 - CONCLUSION: 1. The gallbladder is unremarkable with no evidence of cholelithiasis. 2. Simple cyst in the left kidney. 3. Mild pyelocaliectasis in the right kidney. Salazar Thumran MD Upper Extremity Ultrasound 10/13/15 0000 Signed Impressions: Service Date/Time: Tuesday, October 13, 2015 09:51 - CONCLUSION: 1. No evidence of deep venous thrombosis. John Anderson MD Renal Ultrasound 10/07/15 0000 Signed Impressions: Service Date/Time: Wednesday, October 07, 2015 18:29 - CONCLUSION: 1. No acute findings. 3.6 cm left renal cyst. Putnam catheter in bladder. Amaury Ellsworth MD Tunnelled Chest Tube Removal 08/05/15 1100 Signed Impressions: Service Date/Time: Wednesday, August 05, 2015 11:00 - CONCLUSION: Uncomplicated chest tube removal. Blaine Jackson MD Chest Tube Change 07/31/15 0000 Signed Impressions: Service Date/Time: Friday, July 31, 2015 14:34 - CONCLUSION: Uncomplicated reposition of previously placed chest tube as above. Blaine Jackson MD Chest Tube Insertion 07/30/15 0000 Signed Impressions: Service Date/Time: July 14:50 - CONCLUSION: Uncomplicated chest tube placement as above. Blaine Jackson MD Catheter Change 07/27/15 0000 Signed Impressions: Service Date/Time: Monday, July 27, 2015 14:43 - CONCLUSION: Uncomplicated gastrostomy tube exchange as above. Blaine Jackson MD Chest CT 07/11/15 0000 Signed Impressions: Service Date/Time: Saturday, July 11, 2015 09:49 - CONCLUSION: Scattered patchy densities significantly improved from previous study. Tiny anterior right basilar pneumothorax. Right-sided chest tube in good position. Néstor Matamoros MD Head CT 06/18/151902 Signed Impressions: Service Date/Time: June 19:31 - CONCLUSION: Diffuse atrophy unchanged. No acute intracranial findings. Kush Briscoe MD Abdomen/Pelvis CT 06/18/151902 Signed Impressions: Service Date/Time: , June 18, 2015 19:36 - CONCLUSION: 1. Chronic nonspecific urinary bladder wall thickening. Bladder collapsed with Putnam catheter in place. 2. Chronic bilateral mid to lower lung zone groundglass opacity. 3. Nonobstructing left renal calculus. 4. Distended rectum. Kush Briscoe MD Objective Remarks GENERAL: Cachectic patient with limbs contracted. Eyes open. SKIN: Warm and dry. HEAD: Normocephalic. Bitemporal muscle waisting. EYES: Left erythematous and with drainage. NECK: 8.0 Distal XLT trach in place CARDIOVASCULAR: Tachycardic without murmurs, gallops, or rubs. RESPIRATORY: Coarse breath sounds. GASTROINTESTINAL: Abdomen soft, non-tender, nondistended. MUSCULOSKELETAL: Contracted limbs. Wound on lower back several centimeters wide with clean margins. Muscle waisting. Bitemporal muscle waisting. NEURO: Eyes are open, not tracking. PSYCH: Calm. Procedures 07/26- PEG replacement 07/29- right pigtail catheter placement for new pneumothorax A/P Problem List: (1) Sepsis ICD Code: A41.9 Status: Acute (2) HCAP (healthcare-associated pneumonia) ICD Code: J18.9 Status: Acute (3) Fever ICD Code: R50.9 Status: Resolved (4) Sepsis due to urinary tract infection ICD Code: A41.9 Status: Resolved (5) Chronic respiratory failure ICD Code: J96.10 Status: Chronic (6) Parkinson disease ICD Code: G20 Status: Chronic (7) UTI (urinary tract infection) ICD Code: N39.0 Status: Resolved (8) Encephalopathy ICD Code: G93.40 Status: Resolved (9) Feeding tube obstruction ICD Code: T85.598A Status: Resolved (10) Conjunctivitis ICD Code: H10.9 Status: Resolved (11) Hypotension ICD Code: I95.9 Status: Resolved Assessment and Plan 55-year-old male with persistent sepsis, pneumonia, respiratory failure. Patient is contracted and noninteractive. Poor prognosis. I have not been able to get in touch with the patient's daughter. I have left messages with no return calls. Appreciate palliative care following. New sepsis sources: Tracheobronchitis and ESBL Kleb pneumo UTI MDR PSAE tracheobronchitis. ESBL MDR Kleb pneumo Cath associated UTI. h/o Recurrent aspiration tube feed related in past. Heena Cath associated UTI. - DC antibiotics per infectious disease and monitor. Chronic respiratory failure Chronic tracheostomy. Currently on continuous BiPAP. T piece off. S/P recurrent right pneumothorax status post pigtail catheter removal. On 28% FiO2 . - Suction and Levsin as needed - On prednisone taper per pulmonology. Continue with Duo nebs 4 times a day and when necessary. - Appreciate input from palliative care medicine. - Continue BiPAP at night per pulm Dr Kiser, appreciate recommendations Metabolic Encephalopathy Parkinson's disease underlying. Appear to have permanent damage. Sometimes able to minimally respond to commands, nonverbally. - Continue Sinemet. - Ativan as needed. Malnutrition/protein calorie - moderate to severe. Patient with BMI 14 , muscle waisting, bitemporal waisting. Status post PEG. Tolerating tube feeds. Tube clogged 04/08. IR replaced tube. - Current Colace/senna for bowel regimen. - continue PPI. - Continue tube feed. - Consult baggage clerk Malfunctioning PEG again 04/12. Resolved with flushing the tube. Bilateral lower extremity contractures/ Unstageable sacral ulcer. Wound care consult appreciated. - Continue wound care. - Continue physical therapy to help with contractures. - turn q 2 hours - Agree with palliative care medicine, he cannot communicate his pain. Continue with schedule Lortab every 6 hours. GI prophylaxis: PPI. Stool softener PRN constipation. DVT PPx: Lovenox Discharge Planning Difficult discharge, no payor source. CM consult for DC Discussed with the patient, nurse. Problem Qualifiers (1) Fever: Qualified Code: R50.9 - Fever, unspecified fever cause (2) Chronic respiratory failure: Qualified Code: J96.10 - Chronic respiratory failure, unspecified whether with hypoxia or hypercapnia (3) UTI (urinary tract infection): Qualified Code: N30.00 - Acute cystitis without hematuria (4) Conjunctivitis: Qualified Code: H10.9 - Conjunctivitis of left eye, unspecified conjunctivitis type Roz Pham MD Apr 13, 2016 10:07
[2016-04-13] MEDS: LACTOBACILLUS ACIDOPHILUS TAB PO SCH ×3 (10:18→17:34)
[2016-04-13] MEDS: predniSONE 5 MG TAB PO SCH (10:18)
[2016-04-13] MEDS: LANSOPRAZOLE SOLUTAB 30 MG TAB NG SCH (10:18)
[2016-04-13] MEDS: CARBIDOPA/LEVODOPA 25 MG/100 MG TAB GT SCH ×4 (10:18→22:57)
[2016-04-13] MEDS: GABAPENTIN 300 MG CAP G-TUBE SCH ×2 (10:18→22:57)
[2016-04-13] MEDS: COLLAGENASE OINT 30 GM TUBE TOP SCH (10:21)
[2016-04-13] MEDS: CHLORHEXIDINE GLUCONATE 0.12% 30 ML CUP MT SCH ×2 (10:29→22:56)
[2016-04-13] MEDS: ARTIFICIAL TEARS OPTH SOLN 15 ML BTL EACH EYE SCH ×3 (10:31→17:35)
[2016-04-13] MEDS ORDERED: SODIUM CHLORID 0.9% 500 ML INJ 500 ML IV ONE (16:45)
[2016-04-13] MEDS: ENOXAPARIN SODIUM 40 MG/0.4 ML SYRINGE SQ SCH (22:57)
[2016-04-14] VITALS (9 sets, daily range): BP systolic 101–120; BP diastolic 49–72; PULSE 67–92; RESP 20–24; TEMP 96.6–98.8; O2SAT 93–97
[2016-04-14] MEDS: BETHANECHOL CHL 10 MG TAB PO SCH ×4 (03:23→22:54)
[2016-04-14] MEDS: ACETAMINOPHEN/HYDROcodone 325 MG/5 MG TAB PO SCH ×5 (03:25→22:53)
[2016-04-14] MEDS: SODIUM CHLOR 0.9% 1000 ML INJ 1,000 ML IV SCH ×2 (04:55→17:44)
[2016-04-14] MEDS: FREE WATER G-TUBE SCH ×5 (06:00→22:54)
[2016-04-14 08:28] LABS: AUTOMATED NEUTROPHIL # 10.5 TH/MM3 (1.8-7.7); BASOPHIL # 0.1 TH/MM3 (0-0.2); BASOPHIL % 0.5 % (0.0-2.0); EOSINOPHIL # 0.4 TH/MM3 (0-0.4); EOSINOPHIL % 2.7 % (0.0-4.0); HEMATOCRIT 32.5 % (39.0-51.0); HEMO FLAGS DIFF FINAL; LYMPHOCYTE # 1.2 TH/MM3 (1.0-4.8); MEAN CORPUSCULAR HEMOGLOBIN 27.2 PG (27.0-34.0); MONO % 6.3 % (0.0-8.0); NEUT % 81.5 % (16.0-70.0); PLATELET COUNT 246 TH/MM3 (150-450); RED BLOOD COUNT 3.83 MIL/MM3 (4.50-5.90); WHITE BLOOD COUNT 12.9 TH/MM3 (4.0-11.0)
[2016-04-14 08:47] LABS: BICARBONATE 32.6 MEQ/L (21.0-32.0); POTASSIUM 4.1 MEQ/L (3.5-5.1)
[2016-04-14] MEDS: SODIUM CHLORIDE 0.9% FLUSH 5 ML FLUSH IVF SCH ×2 (09:00→22:54)
[2016-04-14] MEDS: predniSONE 5 MG TAB PO SCH (09:00)
[2016-04-14] MEDS: LACTOBACILLUS ACIDOPHILUS TAB PO SCH ×3 (09:53→17:58)
[2016-04-14] MEDS: GABAPENTIN 300 MG CAP G-TUBE SCH ×2 (09:53→22:53)
[2016-04-14] MEDS: CARBIDOPA/LEVODOPA 25 MG/100 MG TAB GT SCH ×4 (09:56→22:53)
[2016-04-14] MEDS: HYOSCYAMINE SOLN 0.125 MG/ML 15 ML BTL PO PRN (09:57)
[2016-04-14] MEDS: CHLORHEXIDINE GLUCONATE 0.12% 30 ML CUP MT SCH ×2 (09:57→22:53)
[2016-04-14] MEDS: COLLAGENASE OINT 30 GM TUBE TOP SCH (09:57)
[2016-04-14] MEDS: LANSOPRAZOLE SOLUTAB 30 MG TAB NG SCH (09:58)
[2016-04-14] MEDS: ARTIFICIAL TEARS OPTH SOLN 15 ML BTL EACH EYE SCH ×3 (09:58→18:12)
--- NOTE | 2016-04-14 14:38 | HHI.PR ---
Subjective Remarks In the years acute distress. Trying to talk. Blood pressure is better controlled today. Objective Vitals Vital Signs Date Time Temp Pulse Resp B/P Pulse Ox O2 Delivery O2 Flow Rate FiO2 04/14/16 12:43 98.4 87 22 101/49 94 04/14/16 10:25 93 T-piece 6.00 28 04/14/16 07:47 98.8 88 20 104/71 94 04/14/16 04:00 97.5 80 24 117/60 97 04/14/16 01:20 96 30 04/14/16 00:00 97.8 67 22 108/72 96 04/13/16 21:55 95 30 04/13/16 20:00 97.5 80 24 114/59 95 04/13/16 16:14 97.5 78 22 84/58 100 I/O 04/13/16 04/13/16 04/13/16 04/14/16 04/14/16 04/14/16 07:00 15:00 23:00 07:00 15:00 23:00 Intake Total 1078 ml 500 ml Output Total 200 ml 100 ml 100 ml 1100 ml Balance 878 ml -100 ml -100 ml -600 ml Tube Feeding 678 ml 500 ml Other 400 ml Output Urine Total 200 ml 100 ml 100 ml 1100 ml # Bowel Movements 0 2 Result Diagram: 04/14/1640 04/14/1640 Imaging Last Impressions Chest X-Ray 04/11/16 0000 Signed Impressions: Service Date/Time: Monday, April 11, 2016 06:11 - CONCLUSION: 1. Interval improvement and better aeration in appearance of left base. 2. Minimal parenchymal changes persist in the left upper lobe, obscured by trache tube. Milo Jackson MD FACR Tube Change 04/08/16 0000 Signed Impressions: Service Date/Time: Friday, April 08, 2016 14:38 - CONCLUSION: Uncomplicated gastrojejunostomy tube exchange as above. John Anderson MD Tube Check 02/12/16 0000 Signed Impressions: Service Date/Time: Friday, February 12, 2016 16:08 - CONCLUSION: Uncomplicated tube injection as above. Blaine Jackson MD Gastrostomy Tube Change 01/15/16 0000 Signed Impressions: Service Date/Time: Friday, January 15, 2016 12:28 - CONCLUSION: Successful GJ tube exchange as above. Scott Goode MD Abdomen X-Ray 01/12/16 1628 Signed Impressions: Service Date/Time: Tuesday, January 12, 2016 17:35 - CONCLUSION: No evidence of obstruction or free air. Reyes Jewell MD Abdomen Ultrasound 12/06/15 0000 Signed Impressions: Service Date/Time: Sunday, December 06, 2015 17:42 - CONCLUSION: 1. The gallbladder is unremarkable with no evidence of cholelithiasis. 2. Simple cyst in the left kidney. 3. Mild pyelocaliectasis in the right kidney. Salazar Thurman MD Upper Extremity Ultrasound 10/13/15 0000 Signed Impressions: Service Date/Time: Tuesday, October 13, 2015 09:51 - CONCLUSION: 1. No evidence of deep venous thrombosis. John Anderson MD Renal Ultrasound 10/07/15 0000 Signed Impressions: Service Date/Time: Wednesday, October 07, 2015 18:29 - CONCLUSION: 1. No acute findings. 3.6 cm left renal cyst. Putnam catheter in bladder. Amaury Ellsworth MD Tunnelled Chest Tube Removal 08/05/15 1100 Signed Impressions: Service Date/Time: Wednesday, August 05, 2015 11:00 - CONCLUSION: Uncomplicated chest tube removal. Blaine Jackson MD Chest Tube Change 07/31/15 0000 Signed Impressions: Service Date/Time: Friday, July 31, 2015 14:34 - CONCLUSION: Uncomplicated reposition of previously placed chest tube as above. Blaine Jackson MD Chest Tube Insertion 07/30/15 0000 Signed Impressions: Service Date/Time: July 14:50 - CONCLUSION: Uncomplicated chest tube placement as above. Blaine Jackson MD Catheter Change 07/27/15 0000 Signed Impressions: Service Date/Time: Monday, July 27, 2015 14:43 - CONCLUSION: Uncomplicated gastrostomy tube exchange as above. Blaine Jackson MD Chest CT 07/11/15 0000 Signed Impressions: Service Date/Time: Saturday, July 11, 2015 09:49 - CONCLUSION: Scattered patchy densities significantly improved from previous study. Tiny anterior right basilar pneumothorax. Right-sided chest tube in good position. Néstor Matamoros MD Head CT 5/12/16 1903 Signed Impressions: Service Date/Time: June 19:31 - CONCLUSION: Diffuse atrophy unchanged. No acute intracranial findings. Kush Briscoe MD Abdomen/Pelvis CT 06/18/151902 Signed Impressions: Service Date/Time: June 19:36 - CONCLUSION: 1. Chronic nonspecific urinary bladder wall thickening. Bladder collapsed with Putnam catheter in place. 2. Chronic bilateral mid to lower lung zone groundglass opacity. 3. Nonobstructing left renal calculus. 4. Distended rectum. Kush Briscoe MD Objective Remarks GENERAL: Cachectic patient with limbs contracted. Eyes open. SKIN: Warm and dry. HEAD: Normocephalic. Bitemporal muscle waisting. EYES: Left erythematous and with drainage. NECK: 8.0 Distal XLT trach in place CARDIOVASCULAR: Tachycardic without murmurs, gallops, or rubs. RESPIRATORY: Coarse breath sounds. GASTROINTESTINAL: Abdomen soft, non-tender, nondistended. MUSCULOSKELETAL: Contracted limbs. Wound on lower back several centimeters wide with clean margins. Muscle waisting. Bitemporal muscle waisting. NEURO: Eyes are open, not tracking. PSYCH: Calm. Procedures 07/26- PEG replacement 07/29- right pigtail catheter placement for new pneumothorax A/P Problem List: (1) Sepsis ICD Code: A41.9 Status: Acute (2) HCAP (healthcare-associated pneumonia) ICD Code: J18.9 Status: Acute (3) Fever ICD Code: R50.9 Status: Resolved (4) Sepsis due to urinary tract infection ICD Code: A41.9 Status: Resolved (5) Chronic respiratory failure ICD Code: J96.10 Status: Chronic (6) Parkinson disease ICD Code: G20 Status: Chronic (7) UTI (urinary tract infection) ICD Code: N39.0 Status: Resolved (8) Encephalopathy ICD Code: G93.40 Status: Resolved (9) Feeding tube obstruction ICD Code: T85.598A Status: Resolved (10) Conjunctivitis ICD Code: H10.9 Status: Resolved (11) Hypotension ICD Code: I95.9 Status: Resolved Assessment and Plan 55-year-old male with persistent sepsis, pneumonia, respiratory failure. Patient is contracted and noninteractive. Poor prognosis. I have not been able to get in touch with the patient's daughter. I have left messages with no return calls. Appreciate palliative care following. New sepsis sources: Tracheobronchitis and ESBL Kleb pneumo UTI MDR PSAE tracheobronchitis. ESBL MDR Kleb pneumo Cath associated UTI. h/o Recurrent aspiration tube feed related in past. Heena Cath associated UTI. - DC antibiotics per infectious disease and monitor. Hypotension 04/13. Received bolus of 500cc. Start IVF. BP better controlled today. Monitor VS. Chronic respiratory failure Chronic tracheostomy. Currently on continuous BiPAP. T piece off. S/P recurrent right pneumothorax status post pigtail catheter removal. On 28% FiO2 . - Suction and Levsin as needed - On prednisone taper per pulmonology. Continue with Duo nebs 4 times a day and when necessary. - Appreciate input from palliative care medicine. - Continue BiPAP at night per pulm Dr Kiser, appreciate recommendations Metabolic Encephalopathy Parkinson's disease underlying. Appear to have permanent damage. Sometimes able to minimally respond to commands, nonverbally. - Continue Sinemet. - Ativan as needed. Malnutrition/protein calorie - moderate to severe. Patient with BMI 14 , muscle waisting, bitemporal waisting. Status post PEG. Tolerating tube feeds. Tube clogged 04/08. IR replaced tube. - Current Colace/senna for bowel regimen. - continue PPI. - Continue tube feed. - Consult environmental science instructor Malfunctioning PEG again 04/12. Resolved with flushing the tube. Bilateral lower extremity contractures/ Unstageable sacral ulcer. Wound care consult appreciated. - Continue wound care. - Continue physical therapy to help with contractures. - turn q 2 hours - Agree with palliative care medicine, he cannot communicate his pain. Continue with schedule Lortab every 6 hours. GI prophylaxis: PPI. Stool softener PRN constipation. DVT PPx: Lovenox Discharge Planning Difficult discharge, no payor source. CM consult for DC Discussed with the patient, nurse. Problem Qualifiers (1) Fever: Qualified Code: R50.9 - Fever, unspecified fever cause (2) Chronic respiratory failure: Qualified Code: J96.10 - Chronic respiratory failure, unspecified whether with hypoxia or hypercapnia (3) UTI (urinary tract infection): Qualified Code: N30.00 - Acute cystitis without hematuria (4) Conjunctivitis: Qualified Code: H10.9 - Conjunctivitis of left eye, unspecified conjunctivitis type Roz Pham MD Apr 14, 2016 14:38
--- NOTE | 2016-04-14 17:24 | PD.RAD ---
Post Procedure Progress Note Pre Procedure Diagnosis: (1) Proteus septicemia Post Procedure Diagnosis: (1) Proteus septicemia Procedure Date: Apr 14, 2016 Supervising Radiologist: John Anderson Proceduralist/Assist: RT Pineda(R)() Anesthesia: Local Plan of Activity Patient to Unit: Critical Care Patient Condition: Critical See PACS Report for procedural detail/treatment PICC Device Right PICC line placement single lumen Azeri: 4 PICC Line Length (cm): 35 Catheter: Power PICC PICC line can be used immediately John Anderson MD Apr 14, 2016 17:23
[2016-04-14] MEDS ORDERED: SODIUM CHLORIDE 0.9% FLUSH 5 ML FLUSH IVF PRN ×2 (17:30)
[2016-04-14] MEDS: ENOXAPARIN SODIUM 40 MG/0.4 ML SYRINGE SQ SCH (22:54)
[2016-04-15] VITALS (9 sets, daily range): BP systolic 88–134; BP diastolic 51–68; PULSE 69–84; RESP 20–22; TEMP 95.4–98.4; O2SAT 93–99
[2016-04-15] MEDS: ACETAMINOPHEN/HYDROcodone 325 MG/5 MG TAB PO SCH ×3 (05:17→17:23)
[2016-04-15] MEDS: FREE WATER G-TUBE SCH ×3 (05:17→17:23)
[2016-04-15] MEDS: SODIUM CHLOR 0.9% 1000 ML INJ 1,000 ML IV SCH ×2 (05:18→16:42)
[2016-04-15] MEDS: BETHANECHOL CHL 10 MG TAB PO SCH ×2 (06:52→13:26)
[2016-04-15] MEDS: CHLORHEXIDINE GLUCONATE 0.12% 30 ML CUP MT SCH (08:00)
[2016-04-15] MEDS: SODIUM CHLORIDE 0.9% FLUSH 5 ML FLUSH IVF SCH ×2 (09:00)
[2016-04-15] MEDS: LANSOPRAZOLE SOLUTAB 30 MG TAB NG SCH (10:26)
[2016-04-15] MEDS: LACTOBACILLUS ACIDOPHILUS TAB PO SCH ×3 (10:26→17:23)
[2016-04-15] MEDS: predniSONE 5 MG TAB PO SCH (10:29)
[2016-04-15] MEDS: GABAPENTIN 300 MG CAP G-TUBE SCH (10:32)
[2016-04-15] MEDS: CARBIDOPA/LEVODOPA 25 MG/100 MG TAB GT SCH ×3 (10:32→17:23)
[2016-04-15] MEDS: ARTIFICIAL TEARS OPTH SOLN 15 ML BTL EACH EYE SCH ×3 (10:33→17:23)
[2016-04-15] MEDS: COLLAGENASE OINT 30 GM TUBE TOP SCH (10:34)
--- NOTE | 2016-04-15 12:04 | RADRPT ---
EXAM DATE/TIME: 04/14/2016 16:16 [facility] COMPARISON: No previous studies available for comparison. INDICATIONS : Patient with encephalopathy in need of a PICC line for medication administration. MEDICAL HISTORY : HTN, Diabetes, HLD, CAD, MRSA, C-Diff, Parkinson's disease, GERD, Dementia, Hyponatremia, UTI, E. Col i. SURGICAL HISTORY : PEG tube placement, Trach, Left hip fx. ENCOUNTER: Subsequent ACUITY: > 1 year PAIN SCORE: 0/10 FLUORO TIME: 0.2 minutes IMAGE SERIES: 0 ACCESS: Right brachial vein MEDICATION(S): 1.) 250 units Heparin catheter lock DEVICE(S): 1.) 4 Cuban single lumen 35 cm Xcela Power PICC PROCEDURE : 1. Ultrasound guidance for venous catheterization. 2. Fluoroscopic guidance. 3. Ultrasound & fluoroscopic guided central venous Power PICC line placement. The risks, benefits and alternatives to the procedure were explained and verbal and written consent w as obtained. The site was prepped in sterile fashion. Full sterile technique was used, including ca p, mask, sterile gloves and gown and a large sterile sheet. Hand hygiene and 2% chlorhexidine prep w as utilized per protocol for cutaneous antisepsis with appropriate dry time for site. The skin and s ubcutaneous tissues were infiltrated with local anesthetic solution. Under direct ultrasound guidance, a suitable vein was accessed and a measuring guidewire was introduc ed and positioned in the central venous system. The ultrasound images depicting access guidance were saved and stored to PACS for permanent record. A Power Injectable PICC line was cut to prescribed length and introduced, positioned with tip at the cavoatrial junction level. The line was flushed and secured per protocol. CONCLUSION: 1. Uncomplicated central venous Power PICC line placement. 2. The PICC line can be used immediately. John Anderson MD on April 15, 2016 at 12:03 Board Certified Radiologist. This report was verified electronically.
[2016-04-15] MEDS: MORPHINE SULFATE 4 MG/ML INJ IM PRN (16:39)
--- NOTE | 2016-04-15 16:47 | HHI.PR ---
Subjective Remarks BP better controlled today. Urine with whitish discharge from cele likely. Objective Vitals Vital Signs Date Time Temp Pulse Resp B/P Pulse Ox O2 Delivery O2 Flow Rate FiO2 04/15/16 16:15 98.4 84 20 88/53 93 04/15/16 16:15 120/63 04/15/16 16:15 134/60 04/15/16 12:26 96 T-piece 6.00 28 04/15/16 12:00 96.6 69 20 113/56 95 04/15/16 07:55 95.4 70 20 111/56 95 04/15/16 06:52 24 04/15/16 04:00 97.2 77 22 129/68 96 04/15/16 02:30 99 Bi-Pap 30 04/15/16 00:10 95 30 04/15/16 00:09 99 Bi-Pap 30 04/15/16 00:00 98.0 80 22 98/51 93 04/14/16 22:30 97 T-Piece 28 04/14/16 20:40 95 30 04/14/16 20:00 96.6 82 24 107/59 94 I/O 04/14/16 04/14/16 04/14/16 04/15/16 04/15/16 04/15/16 07:00 15:00 23:00 07:00 15:00 23:00 Intake Total 500 ml 520 ml 2320 ml Output Total 1100 ml 650 ml 200 ml 200 ml 430 ml Balance -600 ml -650 ml 320 ml 2120 ml -430 ml IV Total 920 ml Tube Feeding 500 ml 1000 ml Other 520 ml 400 ml Output Urine Total 1100 ml 650 ml 200 ml 200 ml 430 ml # Bowel Movements 2 0 Result Diagram: 04/14/16 0740 04/14/16 0740 Imaging Last Impressions PICC Line Insertion 04/14/16 0000 Signed Impressions: Service Date/Time: April 16:16 - CONCLUSION: 1. Uncomplicated central venous Power PICC line placement. 2. The PICC line can be used immediately. John Anderson MD Chest X-Ray 04/11/16 0000 Signed Impressions: Service Date/Time: Monday, April 11, 2016 06:11 - CONCLUSION: 1. Interval improvement and better aeration in appearance of left base. 2. Minimal parenchymal changes persist in the left upper lobe, obscured by trache tube. Milo Jackson MD FACR Tube Change 04/08/16 0000 Signed Impressions: Service Date/Time: Friday, April 08, 2016 14:38 - CONCLUSION: Uncomplicated gastrojejunostomy tube exchange as above. John Anderson MD Tube Check 02/12/16 0000 Signed Impressions: Service Date/Time: Friday, February 12, 2016 16:08 - CONCLUSION: Uncomplicated tube injection as above. Blaine Jackson MD Gastrostomy Tube Change 01/15/16 0000 Signed Impressions: Service Date/Time: Friday, January 15, 2016 12:28 - CONCLUSION: Successful GJ tube exchange as above. Scott Goode MD Abdomen X-Ray 01/12/16 1628 Signed Impressions: Service Date/Time: Tuesday, January 12, 2016 17:35 - CONCLUSION: No evidence of obstruction or free air. Reyes Jewell MD Abdomen Ultrasound 12/06/15 0000 Signed Impressions: Service Date/Time: Sunday, December 06, 2015 17:42 - CONCLUSION: 1. The gallbladder is unremarkable with no evidence of cholelithiasis. 2. Simple cyst in the left kidney. 3. Mild pyelocaliectasis in the right kidney. Salazar Thurman MD Upper Extremity Ultrasound 10/13/15 0000 Signed Impressions: Service Date/Time: Tuesday, October 13, 2015 09:51 - CONCLUSION: 1. No evidence of deep venous thrombosis. John Anderson MD Renal Ultrasound 10/07/15 0000 Signed Impressions: Service Date/Time: Wednesday, October 07, 2015 18:29 - CONCLUSION: 1. No acute findings. 3.6 cm left renal cyst. Putnam catheter in bladder. Amaury Ellsworth MD Tunnelled Chest Tube Removal 08/05/15 1100 Signed Impressions: Service Date/Time: Wednesday, August 05, 2015 11:00 - CONCLUSION: Uncomplicated chest tube removal. Blaine Jackson MD Chest Tube Change 07/31/15 0000 Signed Impressions: Service Date/Time: Friday, July 31, 2015 14:34 - CONCLUSION: Uncomplicated reposition of previously placed chest tube as above. Blaine Jackson MD Chest Tube Insertion 07/30/15 0000 Signed Impressions: Service Date/Time: July 14:50 - CONCLUSION: Uncomplicated chest tube placement as above. Blaine Jackson MD Catheter Change 07/27/15 0000 Signed Impressions: Service Date/Time: Monday, July 27, 2015 14:43 - CONCLUSION: Uncomplicated gastrostomy tube exchange as above. Blaine Jackson MD Chest CT 07/11/15 0000 Signed Impressions: Service Date/Time: Saturday, July 11, 2015 09:49 - CONCLUSION: Scattered patchy densities significantly improved from previous study. Tiny anterior right basilar pneumothorax. Right-sided chest tube in good position. Néstor Matamoros MD Head CT 06/18/151902 Signed Impressions: Service Date/Time: June 19:31 - CONCLUSION: Diffuse atrophy unchanged. No acute intracranial findings. Kush Briscoe MD Abdomen/Pelvis CT 06/18/151902 Signed Impressions: Service Date/Time: June 19:36 - CONCLUSION: 1. Chronic nonspecific urinary bladder wall thickening. Bladder collapsed with Putnam catheter in place. 2. Chronic bilateral mid to lower lung zone groundglass opacity. 3. Nonobstructing left renal calculus. 4. Distended rectum. Kush Briscoe MD Objective Remarks GENERAL: Cachectic patient with limbs contracted. Eyes open. SKIN: Warm and dry. HEAD: Normocephalic. Bitemporal muscle waisting. EYES: Left erythematous and with drainage. NECK: 8.0 Distal XLT trach in place CARDIOVASCULAR: Tachycardic without murmurs, gallops, or rubs. RESPIRATORY: Coarse breath sounds. GASTROINTESTINAL: Abdomen soft, non-tender, nondistended. MUSCULOSKELETAL: Contracted limbs. Wound on lower back several centimeters wide with clean margins. Muscle waisting. Bitemporal muscle waisting. NEURO: Eyes are open, not tracking. PSYCH: Calm. Procedures 07/26- PEG replacement 07/29- right pigtail catheter placement for new pneumothorax A/P Problem List: (1) Sepsis ICD Code: A41.9 Status: Acute (2) HCAP (healthcare-associated pneumonia) ICD Code: J18.9 Status: Acute (3) Fever ICD Code: R50.9 Status: Resolved (4) Sepsis due to urinary tract infection ICD Code: A41.9 Status: Resolved (5) Chronic respiratory failure ICD Code: J96.10 Status: Chronic (6) Parkinson disease ICD Code: G20 Status: Chronic (7) UTI (urinary tract infection) ICD Code: N39.0 Status: Resolved (8) Encephalopathy ICD Code: G93.40 Status: Resolved (9) Feeding tube obstruction ICD Code: T85.598A Status: Resolved (10) Conjunctivitis ICD Code: H10.9 Status: Resolved (11) Hypotension ICD Code: I95.9 Status: Resolved Assessment and Plan 55-year-old male with persistent sepsis, pneumonia, respiratory failure. Patient is contracted and noninteractive. Poor prognosis. Appreciate palliative care following. New sepsis sources: Tracheobronchitis and ESBL Kleb pneumo UTI MDR PSAE tracheobronchitis. ESBL MDR Kleb pneumo Cath associated UTI. h/o Recurrent aspiration tube feed related in past. Cele Cath associated UTI. - DC antibiotics per infectious disease and monitor. Hypotension 04/13. Received bolus of 500cc. Start IVF. BP better controlled today. Monitor VS. Chronic respiratory failure Chronic tracheostomy. Currently on continuous BiPAP. T piece off. S/P recurrent right pneumothorax status post pigtail catheter removal. On 28% FiO2 . - Suction and Levsin as needed - On prednisone taper per pulmonology. Continue with Duo nebs 4 times a day and when necessary. - Appreciate input from palliative care medicine. - Continue BiPAP at night per pulm Dr Kiser, appreciate recommendations Metabolic Encephalopathy Parkinson's disease underlying. Appear to have permanent damage. Sometimes able to minimally respond to commands, nonverbally. - Continue Sinemet. - Ativan as needed. Malnutrition/protein calorie - moderate to severe. Patient with BMI 14 , muscle waisting, bitemporal waisting. Status post PEG. Tolerating tube feeds. Tube clogged 04/08. IR replaced tube. - Current Colace/senna for bowel regimen. - continue PPI. - Continue tube feed. - Consult insurance claims representative Malfunctioning PEG again 04/12. Resolved with flushing the tube. Bilateral lower extremity contractures/ Unstageable sacral ulcer. Wound care consult appreciated. - Continue wound care. - Continue physical therapy to help with contractures. - turn q 2 hours - Agree with palliative care medicine, he cannot communicate his pain. Continue with schedule Lortab every 6 hours. GI prophylaxis: PPI. Stool softener PRN constipation. DVT PPx: Lovenox Discharge Planning Difficult discharge, no payor source. CM consult for DC Discussed with the nurse. Problem Qualifiers (1) Fever: Qualified Code: R50.9 - Fever, unspecified fever cause (2) Chronic respiratory failure: Qualified Code: J96.10 - Chronic respiratory failure, unspecified whether with hypoxia or hypercapnia (3) UTI (urinary tract infection): Qualified Code: N30.00 - Acute cystitis without hematuria (4) Conjunctivitis: Qualified Code: H10.9 - Conjunctivitis of left eye, unspecified conjunctivitis type Roz Pham MD Apr 15, 2016 16:47
[2016-04-15] MEDS ORDERED: SODIUM CHLORID 0.9% 500 ML INJ 500 ML IV ONE (17:00)
--- NOTE | 2016-04-15 18:10 | HHI.PR ---
Subjective Remarks More alert. 0n T Bar at FIO2 30 % .Trying to talk. Weak in all limbs. Objective Vital Signs Date Time Temp Pulse Resp B/P Pulse Ox O2 Delivery O2 Flow Rate FiO2 04/15/16 16:15 98.4 84 20 88/53 93 04/15/16 16:15 120/63 04/15/16 16:15 134/60 04/15/16 12:26 96 T-piece 6.00 28 04/15/16 12:00 96.6 69 20 113/56 95 04/15/16 07:55 95.4 70 20 111/56 95 04/15/16 06:52 24 04/15/16 04:00 97.2 77 22 129/68 96 04/15/16 02:30 99 Bi-Pap 30 04/15/16 00:10 95 30 04/15/16 00:09 99 Bi-Pap 30 04/15/16 00:00 98.0 80 22 98/51 93 04/14/16 22:30 97 T-Piece 28 04/14/16 20:40 95 30 04/14/16 20:00 96.6 82 24 107/59 94 I/O 04/14/16 04/14/16 04/14/16 04/15/16 04/15/16 04/15/16 07:00 15:00 23:00 07:00 15:00 23:00 Intake Total 500 ml 520 ml 2320 ml Output Total 1100 ml 650 ml 200 ml 200 ml 430 ml Balance -600 ml -650 ml 320 ml 2120 ml -430 ml IV Total 920 ml Tube Feeding 500 ml 1000 ml Other 520 ml 400 ml Output Urine Total 1100 ml 650 ml 200 ml 200 ml 430 ml # Bowel Movements 2 0 Result Diagram: 04/14/16 0740 04/14/16 0740 Objective Remarks This is a thin white male who is , awake with a trach tube in place. HEENT: Pupils are equal and reactive to light. CHEST:Decreased breath sounds,and occ crackles. CARDIOVASCULAR: S1 and S2 is normal.No murmur. ABDOMEN: Soft, nondistended. BS +. He has a PEG and J tube in place. EXTREMITIES: Contractures.muscle wasting.Reflexes 1 + NEURO: Awake and has weak extremities. Skin is cool ,dry . Assessment and Plan Assessment and Plan IMPRESSION 1. Chronic Respiratory failure. 2. Sepsis, Aspiration. 3. Left basal Pneumonia, Resolved 4. Bi Basal pneumonia 5. Parkinson's disease 6. Dementia. 7. Severe Deconditioning. Plan : 1. Cont Bipap at 10/5 CM FIO2 28 % from 9 pm to 7 am 2. Nebs Bid , duoneb. 3. Tube feeds at [address] on T Bar FIo2 28 % upto 14 hrs. 5. Levsin .125 mg tid prn. 6. Cont Trach toilet and lavage. 7. PT evaluation 1 Darren Kiser MD Apr 15, 2016 18:10
[2016-04-16] VITALS (13 sets, daily range): BP systolic 105–124; BP diastolic 56–68; PULSE 69–87; RESP 22–28; TEMP 96.5–99; O2SAT 80–99
[2016-04-16] MEDS: CHLORHEXIDINE GLUCONATE 0.12% 30 ML CUP MT SCH ×3 (00:29→20:00)
[2016-04-16] MEDS: GABAPENTIN 300 MG CAP G-TUBE SCH ×3 (00:29→21:13)
[2016-04-16] MEDS: ENOXAPARIN SODIUM 40 MG/0.4 ML SYRINGE SQ SCH ×2 (00:29→21:13)
[2016-04-16] MEDS: SODIUM CHLORIDE 0.9% FLUSH 5 ML FLUSH IVF SCH ×4 (00:31→21:00)
[2016-04-16] MEDS: BETHANECHOL CHL 10 MG TAB PO SCH ×4 (00:31→21:14)
[2016-04-16] MEDS: CARBIDOPA/LEVODOPA 25 MG/100 MG TAB GT SCH ×5 (00:31→21:15)
[2016-04-16] MEDS: ACETAMINOPHEN/HYDROcodone 325 MG/5 MG TAB PO SCH ×4 (00:32→21:14)
[2016-04-16] MEDS: SODIUM CHLOR 0.9% 1000 ML INJ 1,000 ML IV SCH ×2 (04:35→15:43)
[2016-04-16] MEDS: FREE WATER G-TUBE SCH ×4 (06:00→18:00)
[2016-04-16] MEDS: COLLAGENASE OINT 30 GM TUBE TOP SCH (09:00)
[2016-04-16] MEDS: ARTIFICIAL TEARS OPTH SOLN 15 ML BTL EACH EYE SCH ×3 (09:00→18:00)
[2016-04-16] MEDS: LANSOPRAZOLE SOLUTAB 30 MG TAB NG SCH (09:29)
[2016-04-16] MEDS: LACTOBACILLUS ACIDOPHILUS TAB PO SCH ×3 (09:29→18:04)
[2016-04-16] MEDS: predniSONE 5 MG TAB PO SCH (09:29)
--- NOTE | 2016-04-16 10:40 | HHI.PR ---
Subjective Remarks Patient appears with sob, he has copious secretions. Discussed with the nurse and respiratory patient needs deep suctioning, frequent suctioning. Also give levsin for secretions. Objective Vitals Vital Signs Date Time Temp Pulse Resp B/P Pulse Ox O2 Delivery O2 Flow Rate FiO2 04/16/16 09:47 98 T-Piece 28 04/16/16 08:00 98.9 69 22 109/56 96 04/16/16 04:39 95 40 04/16/16 04:05 97.8 80 24 108/58 99 04/16/16 04:05 100 Bi-Pap 40 04/16/16 01:32 23 04/16/16 00:29 97.4 73 24 119/67 98 04/16/16 00:19 97 30 04/15/16 20:39 97.5 77 22 102/60 98 04/15/16 20:00 99 Bi-Pap 40 04/15/16 19:32 99 40 04/15/16 16:15 98.4 84 20 88/53 93 04/15/16 16:15 120/63 04/15/16 16:15 134/60 04/15/16 12:26 96 T-piece 6.00 28 04/15/16 12:00 96.6 69 20 113/56 95 I/O 04/15/16 04/15/16 04/15/16 04/16/16 04/16/16 04/16/16 07:00 15:00 23:00 07:00 15:00 23:00 Intake Total 2320 ml Output Total 200 ml 430 ml 950 ml Balance 2120 ml -430 ml -950 ml IV Total 920 ml Tube Feeding 1000 ml Other 400 ml Output Urine Total 200 ml 430 ml 950 ml # Bowel Movements 1 Result Diagram: 04/14/16 0740 04/14/16 0740 Imaging Last Impressions PICC Line Insertion 04/14/16 0000 Signed Impressions: Service Date/Time: April 16:16 - CONCLUSION: 1. Uncomplicated central venous Power PICC line placement. 2. The PICC line can be used immediately. John Anderson MD Chest X-Ray 04/11/16 0000 Signed Impressions: Service Date/Time: Monday, April 11, 2016 06:11 - CONCLUSION: 1. Interval improvement and better aeration in appearance of left base. 2. Minimal parenchymal changes persist in the left upper lobe, obscured by trache tube. Milo Jackson MD FACR Tube Change 04/08/16 0000 Signed Impressions: Service Date/Time: Friday, April 08, 2016 14:38 - CONCLUSION: Uncomplicated gastrojejunostomy tube exchange as above. John Anderson MD Tube Check 02/12/16 0000 Signed Impressions: Service Date/Time: Friday, February 12, 2016 16:08 - CONCLUSION: Uncomplicated tube injection as above. Blaine Jackson MD Gastrostomy Tube Change 01/15/16 0000 Signed Impressions: Service Date/Time: Friday, January 15, 2016 12:28 - CONCLUSION: Successful GJ tube exchange as above. Scott Goode MD Abdomen X-Ray 01/12/16 1628 Signed Impressions: Service Date/Time: Tuesday, January 12, 2016 17:35 - CONCLUSION: No evidence of obstruction or free air. Reyes Jewell MD Abdomen Ultrasound 12/06/15 0000 Signed Impressions: Service Date/Time: Sunday, December 06, 2015 17:42 - CONCLUSION: 1. The gallbladder is unremarkable with no evidence of cholelithiasis. 2. Simple cyst in the left kidney. 3. Mild pyelocaliectasis in the right kidney. Salazar Thurman MD Upper Extremity Ultrasound 10/13/15 0000 Signed Impressions: Service Date/Time: Tuesday, October 13, 2015 09:51 - CONCLUSION: 1. No evidence of deep venous thrombosis. John Anderson MD Renal Ultrasound 10/07/15 0000 Signed Impressions: Service Date/Time: Wednesday, October 07, 2015 18:29 - CONCLUSION: 1. No acute findings. 3.6 cm left renal cyst. Putnam catheter in bladder. Amaury Ellsworth MD Tunnelled Chest Tube Removal 08/05/15 1100 Signed Impressions: Service Date/Time: Wednesday, August 05, 2015 11:00 - CONCLUSION: Uncomplicated chest tube removal. Blaine Jackson MD Chest Tube Change 07/31/15 0000 Signed Impressions: Service Date/Time: Friday, July 31, 2015 14:34 - CONCLUSION: Uncomplicated reposition of previously placed chest tube as above. Blaine Jackson MD Chest Tube Insertion 07/30/15 0000 Signed Impressions: Service Date/Time: July 14:50 - CONCLUSION: Uncomplicated chest tube placement as above. Blaine Jackson MD Catheter Change 07/27/15 Signed Impressions: Service Date/Time: Monday, July 27, 2015 14:43 - CONCLUSION: Uncomplicated gastrostomy tube exchange as above. Blaine Jackson MD Chest CT 07/11/15 Signed Impressions: Service Date/Time: Saturday, July 11, 2015 09:49 - CONCLUSION: Scattered patchy densities significantly improved from previous study. Tiny anterior right basilar pneumothorax. Right-sided chest tube in good position. Néstor Matamoros MD Head CT 06/18/151902 Signed Impressions: Service Date/Time: June 19:31 - CONCLUSION: Diffuse atrophy unchanged. No acute intracranial findings. Kush Briscoe MD Abdomen/Pelvis CT 06/18/151902 Signed Impressions: Service Date/Time: June 19:36 - CONCLUSION: 1. Chronic nonspecific urinary bladder wall thickening. Bladder collapsed with Putnam catheter in place. 2. Chronic bilateral mid to lower lung zone groundglass opacity. 3. Nonobstructing left renal calculus. 4. Distended rectum. Kush Briscoe MD Objective Remarks GENERAL: Cachectic patient with limbs contracted. Eyes open. SKIN: Warm and dry. HEAD: Normocephalic. Bitemporal muscle waisting. EYES: Left erythematous and with drainage. NECK: 8.0 Distal XLT trach in place CARDIOVASCULAR: Tachycardic without murmurs, gallops, or rubs. RESPIRATORY: Coarse breath sounds. GASTROINTESTINAL: Abdomen soft, non-tender, nondistended. MUSCULOSKELETAL: Contracted limbs. Wound on lower back several centimeters wide with clean margins. Muscle waisting. Bitemporal muscle waisting. NEURO: Eyes are open, not tracking. PSYCH: Calm. Procedures 07/26- PEG replacement 07/29- right pigtail catheter placement for new pneumothorax A/P Problem List: (1) Sepsis ICD Code: A41.9 Status: Acute (2) HCAP (healthcare-associated pneumonia) ICD Code: J18.9 Status: Acute (3) Fever ICD Code: R50.9 Status: Resolved (4) Sepsis due to urinary tract infection ICD Code: A41.9 Status: Resolved (5) Chronic respiratory failure ICD Code: J96.10 Status: Chronic (6) Parkinson disease ICD Code: G20 Status: Chronic (7) UTI (urinary tract infection) ICD Code: N39.0 Status: Resolved (8) Encephalopathy ICD Code: G93.40 Status: Resolved (9) Feeding tube obstruction ICD Code: T85.598A Status: Resolved (10) Conjunctivitis ICD Code: H10.9 Status: Resolved (11) Hypotension ICD Code: I95.9 Status: Resolved Assessment and Plan 55-year-old male with persistent sepsis, pneumonia, respiratory failure. Patient is contracted and noninteractive. Poor prognosis. Appreciate palliative care following. New sepsis sources: Tracheobronchitis and ESBL Kleb pneumo UTI MDR PSAE tracheobronchitis. ESBL MDR Kleb pneumo Cath associated UTI. h/o Recurrent aspiration tube feed related in past. Heena Cath associated UTI. - DC antibiotics per infectious disease and monitor. Hypotension 04/13. Received bolus of 500cc. Start IVF. BP better controlled today. Monitor VS. Chronic respiratory failure Chronic tracheostomy. Currently on continuous BiPAP. T piece off. S/P recurrent right pneumothorax status post pigtail catheter removal. On 28% FiO2 . - Suction and Levsin as needed - On prednisone taper per pulmonology. Continue with Duo nebs 4 times a day and when necessary. - Appreciate input from palliative care medicine. - Continue BiPAP at night per pulm Dr Kiser, appreciate recommendations Metabolic Encephalopathy Parkinson's disease underlying. Appear to have permanent damage. Sometimes able to minimally respond to commands, nonverbally. - Continue Sinemet. - Ativan as needed. Malnutrition/protein calorie - moderate to severe. Patient with BMI 14 , muscle waisting, bitemporal waisting. Status post PEG. Tolerating tube feeds. Tube clogged 3/. IR replaced tube. - Current Colace/senna for bowel regimen. - continue PPI. - Continue tube feed. - Consult spiral gear generator Malfunctioning PEG again 04/12. Resolved with flushing the tube. Bilateral lower extremity contractures/ Unstageable sacral ulcer. Wound care consult appreciated. - Continue wound care. - Continue physical therapy to help with contractures. - turn q 2 hours - Agree with palliative care medicine, he cannot communicate his pain. Continue with schedule Lortab every 6 hours. GI prophylaxis: PPI. Stool softener PRN constipation. DVT PPx: Lovenox Discharge Planning Difficult discharge, no payor source. CM consult for DC Discussed with the nurse. Problem Qualifiers (1) Fever: Qualified Code: R50.9 - Fever, unspecified fever cause (2) Chronic respiratory failure: Qualified Code: J96.10 - Chronic respiratory failure, unspecified whether with hypoxia or hypercapnia (3) UTI (urinary tract infection): Qualified Code: N30.00 - Acute cystitis without hematuria (4) Conjunctivitis: Qualified Code: H10.9 - Conjunctivitis of left eye, unspecified conjunctivitis type Roz Pham MD Apr 16, 2016 10:39
[2016-04-16] MEDS: MORPHINE SULFATE 4 MG/ML INJ IM PRN (12:13)
[2016-04-16] MEDS: HYOSCYAMINE SOLN 0.125 MG/ML 15 ML BTL PO PRN (15:34)
--- NOTE | 2016-04-16 16:08 | RADRPT ---
EXAM DATE/TIME: 04/16/2016 15:36 [facility] COMPARISON: No previous studies available for comparison. INDICATIONS : Hypoxia. MEDICAL HISTORY : Diabetes mellitus type II. Respiratory failure. SURGICAL HISTORY : G-tube. ENCOUNTER: Subsequent ACUITY: 2 months PAIN SCORE: Non-responsive. LOCATION: Bilateral chest FINDINGS: Limited study secondary to difficulty positioning the patient. Minimal bilateral upper lobe infiltrat es are seen, decreased. Lungs are otherwise grossly clear. No large effusion seen. No pneumothorax. Heart size stable, within normal limits. Trach collar again noted. There is a right arm PICC with tip at the atriocaval junction. CONCLUSION: Decreased bilateral upper lobe infiltrates, now very mild. Erlin Escobar MD on April 16, 2016 at 16:05 Board Certified Radiologist. This report was verified electronically.
[2016-04-16] MEDS: FLUCONAZOLE 100 MG PREMIX BAG 50 ML IV SCH (16:43)
--- NOTE | 2016-04-16 18:42 | HHI.PR ---
Subjective Remarks Lethargic and sats were low today. 0n T Bar at FIO2 30 % .Diaphoretic. Weak in all limbs. Objective Vital Signs Date Time Temp Pulse Resp B/P Pulse Ox O2 Delivery O2 Flow Rate FiO2 04/16/16 16:00 96.5 86 22 105/68 86 04/16/16 15:42 96 40 04/16/16 14:00 80 04/16/16 12:00 99.0 86 22 118/61 88 04/16/16 09:47 98 T-Piece 28 04/16/16 09:25 98 T-piece 6.00 28 04/16/16 08:00 98.9 69 22 109/56 96 04/16/16 04:39 95 40 04/16/16 04:05 97.8 80 24 108/58 99 04/16/16 04:05 100 Bi-Pap 40 04/16/16 01:32 23 04/16/16 00:29 97.4 73 24 119/67 98 04/16/16 00:19 97 30 04/15/16 20:39 97.5 77 22 102/60 98 04/15/16 20:00 99 Bi-Pap 40 04/15/16 19:32 99 40 I/O 04/15/16 04/15/16 04/15/16 04/16/16 04/16/16 04/16/16 07:00 15:00 23:00 07:00 15:00 23:00 Intake Total 2320 ml Output Total 200 ml 430 ml 950 ml 500 ml Balance 2120 ml -430 ml -950 ml -500 ml IV Total 920 ml Tube Feeding 1000 ml Other 400 ml Output Urine Total 200 ml 430 ml 950 ml 500 ml # Bowel Movements 1 2 Result Diagram: 04/14/1640 04/14/16 0740 Objective Remarks This is a thin white male who is , awake with a trach tube in place. HEENT: Pupils are reactive to light. CHEST:Decreased breath sounds,and occ basal crackles. CARDIOVASCULAR: S1 and S2 is normal.No murmur. ABDOMEN: Soft, nondistended. BS +. He has a PEG and J tube in place. EXTREMITIES: Contractures.muscle wasting.Reflexes 1 + NEURO: Awake and has weak extremities. Skin is cool ,dry . Assessment and Plan Assessment and Plan IMPRESSION 1. Chronic Respiratory failure. 2. Sepsis, Aspiration. 3. Left basal Pneumonia, Resolved 4. Bi Basal pneumonia 5. Parkinson's disease 6. Dementia. 7. Severe Deconditioning. Plan : 1. Add Bipap at 10/5 CM FIO2 28 % today till am. 2. Nebs Bid , duoneb. 3. Tube feeds at 45 CC 4. Chest X ray,CBC, BMP 5. Levsin .125 mg tid prn. 6. Cont Trach toilet and lavage. 7. PT evaluation 1 Darren Kiser MD Apr 16, 2016 18:42
--- NOTE | 2016-04-16 23:09 | RADRPT ---
EXAM DATE/TIME: 04/16/2016 22:52 [facility] COMPARISON: No previous studies available for comparison. INDICATIONS : Confirm j-tube placement. MEDICAL HISTORY : HTN, Diabetes, HLD, CAD, MRSA, C-Diff, Parkinson's disease, gerd, SURGICAL HISTORY : PEG tube placement, Trach, Left hip fx. ENCOUNTER: Initial ACUITY: 1 day PAIN SCORE: Non-responsive. LOCATION: abdomen. FINDINGS: Frontal view of the upper abdomen was obtained after injection of contrast through the jejunostomy tu be. Contrast is seen within the lumen of the jejunum. No evidence of leak. CONCLUSION: Intraluminal location of the jejunostomy tube is confirmed. Tai Jaquez MD on April 16, 2016 at 23:07 Board Certified Radiologist. This report was verified electronically.
[2016-04-17] VITALS (12 sets, daily range): BP systolic 84–127; BP diastolic 50–68; PULSE 81–100; RESP 22–30; TEMP 96.5–98.1; O2SAT 93–100
[2016-04-17] MEDS: ACETAMINOPHEN/HYDROcodone 325 MG/5 MG TAB PO SCH ×4 (03:29→22:19)
[2016-04-17] MEDS: SODIUM CHLOR 0.9% 1000 ML INJ 1,000 ML IV SCH (03:31)
[2016-04-17] MEDS: FREE WATER G-TUBE SCH ×4 (06:00→18:00)
[2016-04-17] MEDS: BETHANECHOL CHL 10 MG TAB PO SCH ×3 (06:17→22:19)
[2016-04-17] MEDS: SODIUM CHLORIDE 0.9% FLUSH 5 ML FLUSH IVF SCH ×3 (09:00→21:00)
[2016-04-17] MEDS: HYOSCYAMINE SOLN 0.125 MG/ML 15 ML BTL PO PRN (09:53)
[2016-04-17] MEDS: CHLORHEXIDINE GLUCONATE 0.12% 30 ML CUP MT SCH ×2 (09:53→22:19)
[2016-04-17] MEDS: LANSOPRAZOLE SOLUTAB 30 MG TAB NG SCH (09:53)
[2016-04-17] MEDS: LACTOBACILLUS ACIDOPHILUS TAB PO SCH ×3 (09:53→18:47)
[2016-04-17] MEDS: CARBIDOPA/LEVODOPA 25 MG/100 MG TAB GT SCH ×4 (09:53→22:20)
[2016-04-17] MEDS: GABAPENTIN 300 MG CAP G-TUBE SCH ×2 (09:54→22:19)
[2016-04-17] MEDS: predniSONE 5 MG TAB PO SCH (09:54)
[2016-04-17] MEDS: COLLAGENASE OINT 30 GM TUBE TOP SCH (09:55)
[2016-04-17] MEDS: ARTIFICIAL TEARS OPTH SOLN 15 ML BTL EACH EYE SCH ×3 (09:55→18:00)
--- NOTE | 2016-04-17 14:40 | HHI.PR ---
Subjective Remarks Patient appears in nad. VSS Objective Vitals Vital Signs Date Time Temp Pulse Resp B/P Pulse Ox O2 Delivery O2 Flow Rate FiO2 04/17/16 12:00 97.8 86 22 101/58 99 04/17/16 10:35 96 50 04/17/16 10:06 98 T-Piece 35 04/17/16 08:00 96.5 82 22 84/50 100 04/17/16 07:32 100 BiPAP 50 04/17/16 07:32 100 50 04/17/16 05:13 99 50 04/17/16 04:00 97.2 85 28 127/68 98 04/17/16 00:21 100 50 04/17/16 00:00 97.4 100 30 122/60 93 04/16/16 22:12 98 Bi-Pap 55 04/16/16 22:05 98 50 04/16/16 20:00 97.6 87 28 124/63 98 04/16/16 19:43 97 50 04/16/16 16:00 96.5 86 22 105/68 86 04/16/16 15:42 96 40 I/O 04/16/16 04/16/16 04/16/16 04/17/16 04/17/16 04/17/16 07:00 15:00 23:00 07:00 15:00 23:00 Intake Total 1008 ml Output Total 950 ml 500 ml 1200 ml Balance -950 ml -500 ml -192 ml IV Total 1008 ml Output Urine Total 950 ml 500 ml 1200 ml # Bowel Movements 1 2 1 1 Result Diagram: 04/14/16 0740 04/14/1640 Imaging Last Impressions Chest X-Ray 04/16/16 0000 Signed Impressions: Service Date/Time: Saturday, April 16, 2016 15:36 - CONCLUSION: Decreased bilateral upper lobe infiltrates, now very mild. Erlin Escobar MD Abdomen X-Ray 04/16/16 0000 Signed Impressions: Service Date/Time: Saturday, April 16, 2016 22:52 - CONCLUSION: Intraluminal location of the jejunostomy tube is confirmed. Tai Jaquez MD PICC Line Insertion 04/14/16 0000 Signed Impressions: Service Date/Time: April 16:16 - CONCLUSION: 1. Uncomplicated central venous Power PICC line placement. 2. The PICC line can be used immediately. John Anderson MD Tube Change 04/08/16 0000 Signed Impressions: Service Date/Time: Friday, April 08, 2016 14:38 - CONCLUSION: Uncomplicated gastrojejunostomy tube exchange as above. John Anderson MD Tube Check 02/12/16 0000 Signed Impressions: Service Date/Time: Friday, February 12, 2016 16:08 - CONCLUSION: Uncomplicated tube injection as above. Blaine Jackson MD Gastrostomy Tube Change 01/15/16 0000 Signed Impressions: Service Date/Time: Friday, January 15, 2016 12:28 - CONCLUSION: Successful GJ tube exchange as above. Scott Goode MD Abdomen Ultrasound 12/06/15 0000 Signed Impressions: Service Date/Time: Sunday, December 06, 2015 17:42 - CONCLUSION: 1. The gallbladder is unremarkable with no evidence of cholelithiasis. 2. Simple cyst in the left kidney. 3. Mild pyelocaliectasis in the right kidney. Salazar Thurman MD Upper Extremity Ultrasound 10/13/15 0000 Signed Impressions: Service Date/Time: Tuesday, October 13, 2015 09:51 - CONCLUSION: 1. No evidence of deep venous thrombosis. John Anderson MD Renal Ultrasound 10/07/15 0000 Signed Impressions: Service Date/Time: Wednesday, October 07, 2015 18:29 - CONCLUSION: 1. No acute findings. 3.6 cm left renal cyst. Putnam catheter in bladder. Amaury Ellsworth MD Tunnelled Chest Tube Removal 08/05/15 1100 Signed Impressions: Service Date/Time: Wednesday, August 05, 2015 11:00 - CONCLUSION: Uncomplicated chest tube removal. Blaine Jackson MD Chest Tube Change 07/31/15 0000 Signed Impressions: Service Date/Time: Friday, July 31, 2015 14:34 - CONCLUSION: Uncomplicated reposition of previously placed chest tube as above. Blaine Jackson MD Chest Tube Insertion 07/30/15 0000 Signed Impressions: Service Date/Time: July 14:50 - CONCLUSION: Uncomplicated chest tube placement as above. Blaine Jackson MD Catheter Change 07/27/15 0000 Signed Impressions: Service Date/Time: Monday, July 27, 2015 14:43 - CONCLUSION: Uncomplicated gastrostomy tube exchange as above. Blaine Jackson MD Chest CT 07/11/15 0000 Signed Impressions: Service Date/Time: Saturday, July 11, 2015 09:49 - CONCLUSION: Scattered patchy densities significantly improved from previous study. Tiny anterior right basilar pneumothorax. Right-sided chest tube in good position. Néstor Matamoros MD Head CT 06/18/151902 Signed Impressions: Service Date/Time: June 19:31 - CONCLUSION: Diffuse atrophy unchanged. No acute intracranial findings. Kush Briscoe MD Abdomen/Pelvis CT 06/18/151902 Signed Impressions: Service Date/Time: June 19:36 - CONCLUSION: 1. Chronic nonspecific urinary bladder wall thickening. Bladder collapsed with Putnam catheter in place. 2. Chronic bilateral mid to lower lung zone groundglass opacity. 3. Nonobstructing left renal calculus. 4. Distended rectum. Kush Briscoe MD Objective Remarks GENERAL: Cachectic patient with limbs contracted. Eyes open. SKIN: Warm and dry. HEAD: Normocephalic. Bitemporal muscle waisting. EYES: Left erythematous and with drainage. NECK: 8.0 Distal XLT trach in place CARDIOVASCULAR: Tachycardic without murmurs, gallops, or rubs. RESPIRATORY: Coarse breath sounds. GASTROINTESTINAL: Abdomen soft, non-tender, nondistended. MUSCULOSKELETAL: Contracted limbs. Wound on lower back several centimeters wide with clean margins. Muscle waisting. Bitemporal muscle waisting. NEURO: Eyes are open, not tracking. PSYCH: Calm. Procedures 07/26- PEG replacement 07/29- right pigtail catheter placement for new pneumothorax A/P Problem List: (1) Sepsis ICD Code: A41.9 Status: Acute (2) HCAP (healthcare-associated pneumonia) ICD Code: J18.9 Status: Acute (3) Fever ICD Code: R50.9 Status: Resolved (4) Sepsis due to urinary tract infection ICD Code: A41.9 Status: Resolved (5) Chronic respiratory failure ICD Code: J96.10 Status: Chronic (6) Parkinson disease ICD Code: G20 Status: Chronic (7) UTI (urinary tract infection) ICD Code: N39.0 Status: Resolved (8) Encephalopathy ICD Code: G93.40 Status: Resolved (9) Feeding tube obstruction ICD Code: T85.598A Status: Resolved (10) Conjunctivitis ICD Code: H10.9 Status: Resolved (11) Hypotension ICD Code: I95.9 Status: Resolved Assessment and Plan 55-year-old male with persistent sepsis, pneumonia, respiratory failure. Patient is contracted and noninteractive. Poor prognosis. Appreciate palliative care following. New sepsis sources: Tracheobronchitis and ESBL Kleb pneumo UTI MDR PSAE tracheobronchitis. ESBL MDR Kleb pneumo Cath associated UTI. h/o Recurrent aspiration tube feed related in past. Heena Cath associated UTI. - DC antibiotics per infectious disease and monitor. - Repeat CXR improving. Needs frequent suctioning. Discussed with the nurse Urinary candidiasis: Start fluconazole urine is clearing up, better urine OP. Hypotension 04/13. Received bolus of 500cc. Start IVF. BP better controlled today. Monitor VS. BP is better controlled. Chronic respiratory failure Chronic tracheostomy. Currently on continuous BiPAP. T piece off. S/P recurrent right pneumothorax status post pigtail catheter removal. On 28% FiO2 . - Suction and Levsin as needed - On prednisone taper per pulmonology. Continue with Duo nebs 4 times a day and when necessary. - Appreciate input from palliative care medicine. - Continue BiPAP at night per pulm Dr Kiser, appreciate recommendations Metabolic Encephalopathy Parkinson's disease underlying. Appear to have permanent damage. Sometimes able to minimally respond to commands, nonverbally. - Continue Sinemet. - Ativan as needed. Malnutrition/protein calorie - moderate to severe. Patient with BMI 14 , muscle waisting, bitemporal waisting. Status post PEG. Tolerating tube feeds. Tube clogged 04/08. IR replaced tube. - Current Colace/senna for bowel regimen. - continue PPI. - Continue tube feed. - Consult clay pigeon setter Malfunctioning PEG again 04/12. Resolved with flushing the tube. Bilateral lower extremity contractures/ Unstageable sacral ulcer. Wound care consult appreciated. - Continue wound care. - Continue physical therapy to help with contractures. - turn q 2 hours - Agree with palliative care medicine, he cannot communicate his pain. Continue with schedule Lortab every 6 hours. GI prophylaxis: PPI. Stool softener PRN constipation. DVT PPx: Lovenox Discharge Planning Difficult discharge, no payor source. CM consult for DC Discussed with the nurse. Problem Qualifiers (1) Fever: Qualified Code: R50.9 - Fever, unspecified fever cause (2) Chronic respiratory failure: Qualified Code: J96.10 - Chronic respiratory failure, unspecified whether with hypoxia or hypercapnia (3) UTI (urinary tract infection): Qualified Code: N30.00 - Acute cystitis without hematuria (4) Conjunctivitis: Qualified Code: H10.9 - Conjunctivitis of left eye, unspecified conjunctivitis type Roz Pham MD Apr 17, 2016 14:40
[2016-04-17] MEDS ORDERED: SODIUM CHLORID 0.9% 500 ML INJ 500 ML IV ONE (14:45)
--- NOTE | 2016-04-17 15:41 | HHI.PR ---
Subjective Remarks Lethargic but O2 sats better. On Bipap now 11/10 , FIo2 50 % .. Weak in all limbs. Objective Vital Signs Date Time Temp Pulse Resp B/P Pulse Ox O2 Delivery O2 Flow Rate FiO2 04/17/16 12:00 97.8 86 22 101/58 99 04/17/16 10:35 96 50 04/17/16 10:06 98 T-Piece 35 04/17/16 08:00 96.5 82 22 84/50 100 04/17/16 07:32 100 BiPAP 50 04/17/16 07:32 100 50 04/17/16 05:13 99 50 04/17/16 04:00 97.2 85 28 127/68 98 04/17/16 00:21 100 50 04/17/16 00:00 97.4 100 30 122/60 93 04/16/16 22:12 98 Bi-Pap 55 04/16/16 22:05 98 50 04/16/16 20:00 97.6 87 28 124/63 98 04/16/16 19:43 97 50 04/16/16 16:00 96.5 86 22 105/68 86 04/16/16 15:42 96 40 I/O 04/16/16 04/16/16 04/16/16 04/17/16 04/17/16 04/17/16 07:00 15:00 23:00 07:00 15:00 23:00 Intake Total 1008 ml Output Total 950 ml 500 ml 1200 ml Balance -950 ml -500 ml -192 ml IV Total 1008 ml Output Urine Total 950 ml 500 ml 1200 ml # Bowel Movements 1 2 1 1 Result Diagram: 04/14/1640 04/14/1640 Objective Remarks This is a thin white male who is , awake with a trach tube in place. HEENT: Pupils are reactive to light. CHEST:Decreased breath sounds,and occ basal crackles with wheezes. CARDIOVASCULAR: S1 and S2 is normal.No murmur. ABDOMEN: Soft, nondistended. BS +. He has a PEG and J tube in place. EXTREMITIES: Contractures.muscle wasting.Reflexes 1 + NEURO: Awake and has weak extremities. Skin is cool ,dry . Assessment and Plan Assessment and Plan IMPRESSION 1. Chronic Respiratory failure. 2. Sepsis, Aspiration. 3. Left basal Pneumonia, Resolved 4. Bi Basal pneumonia 5. Parkinson's disease 6. Dementia. 7. Severe Deconditioning. Plan : 1. Add Bipap at 12/5 CM FIO2 35 %. 2. Nebs Bid , duoneb. 3. Tube feeds at 45 CC 4. Chest X ray,CBC, BMP 5. Levsin .125 mg tid prn. 6. Cont Trach toilet and lavage. 1 Darren Kiser MD Apr 17, 2016 15:41
[2016-04-17] MEDS: FLUCONAZOLE 100 MG PREMIX BAG 50 ML IV SCH (16:13)
[2016-04-17] MEDS: ENOXAPARIN SODIUM 40 MG/0.4 ML SYRINGE SQ SCH (22:18)
[2016-04-18] VITALS (13 sets, daily range): BP systolic 98–124; BP diastolic 57–75; PULSE 79–92; RESP 16–30; TEMP 95.9–98.6; O2SAT 89–97
[2016-04-18] MEDS: SODIUM CHLOR 0.9% 1000 ML INJ 1,000 ML IV SCH ×2 (03:42→11:05)
[2016-04-18] MEDS: ACETAMINOPHEN/HYDROcodone 325 MG/5 MG TAB PO SCH ×4 (03:42→21:38)
[2016-04-18] MEDS: FREE WATER G-TUBE SCH ×4 (06:00→18:00)
[2016-04-18] MEDS: BETHANECHOL CHL 10 MG TAB PO SCH ×3 (06:17→21:37)
[2016-04-18] MEDS: SODIUM CHLORIDE 0.9% FLUSH 5 ML FLUSH IVF SCH ×3 (09:00→21:00)
[2016-04-18] MEDS: CHLORHEXIDINE GLUCONATE 0.12% 30 ML CUP MT SCH ×2 (09:36→21:36)
[2016-04-18] MEDS: CARBIDOPA/LEVODOPA 25 MG/100 MG TAB GT SCH ×4 (09:36→21:37)
[2016-04-18] MEDS: HYOSCYAMINE SOLN 0.125 MG/ML 15 ML BTL PO PRN ×2 (09:36→21:49)
[2016-04-18] MEDS: LACTOBACILLUS ACIDOPHILUS TAB PO SCH ×3 (09:36→18:09)
[2016-04-18] MEDS: GABAPENTIN 300 MG CAP G-TUBE SCH ×2 (09:36→21:38)
[2016-04-18] MEDS: LANSOPRAZOLE SOLUTAB 30 MG TAB NG SCH (09:36)
[2016-04-18] MEDS: COLLAGENASE OINT 30 GM TUBE TOP SCH (09:37)
[2016-04-18] MEDS: predniSONE 5 MG TAB PO SCH (09:37)
[2016-04-18] MEDS: ARTIFICIAL TEARS OPTH SOLN 15 ML BTL EACH EYE SCH ×3 (09:37→18:00)
[2016-04-18] MEDS: RESP: ALBUTEROL 2.5 MG/3 ML NEB (PRN) NEB (10:06)
--- NOTE | 2016-04-18 12:40 | HHI.PR ---
Subjective Remarks Patient was noted desatting at times, now he is requiring bIpAP during the day , discussed with pulm will wean off. He has secretions, suction frequently. He is also wheezing, will give nebs. Discussed with the nurse and pulm. Objective Vitals Vital Signs Date Time Temp Pulse Resp B/P Pulse Ox O2 Delivery O2 Flow Rate FiO2 04/18/16 12:25 95.9 90 26 98/57 94 04/18/16 09:57 T-Piece 04/18/16 09:40 95 T-piece 40 04/18/16 08:16 96.6 92 30 110/60 89 04/18/16 06:00 95 40 04/18/16 04:00 97.4 89 26 124/63 97 04/18/16 00:53 93 40 04/18/16 00:00 97.2 89 30 122/60 97 04/17/16 21:07 98 Bi-Pap 04/17/16 20:38 96 45 04/17/16 20:00 97.2 81 30 121/55 96 04/17/16 16:52 98 50 04/17/16 16:00 98.1 82 22 100/52 100 I/O 04/17/16 04/17/16 04/17/16 04/18/16 04/18/16 04/18/16 07:00 15:00 23:00 07:00 15:00 23:00 Intake Total 1008 ml Output Total 1200 ml 500 ml 600 ml 650 ml Balance -192 ml -500 ml -600 ml -650 ml IV Total 1008 ml Output Urine Total 1200 ml 500 ml 600 ml 650 ml # Bowel Movements 1 2 1 Result Diagram: 04/14/1640 04/14/1640 Imaging Last Impressions Chest X-Ray 04/16/16 0000 Signed Impressions: Service Date/Time: Saturday, April 16, 2016 15:36 - CONCLUSION: Decreased bilateral upper lobe infiltrates, now very mild. Erlin Escobar MD Abdomen X-Ray 04/16/16 0000 Signed Impressions: Service Date/Time: Saturday, April 16, 2016 22:52 - CONCLUSION: Intraluminal location of the jejunostomy tube is confirmed. Tai Jaquez MD PICC Line Insertion 04/14/16 0000 Signed Impressions: Service Date/Time: April 16:16 - CONCLUSION: 1. Uncomplicated central venous Power PICC line placement. 2. The PICC line can be used immediately. John Anderson MD Tube Change 04/08/16 0000 Signed Impressions: Service Date/Time: Friday, April 08, 2016 14:38 - CONCLUSION: Uncomplicated gastrojejunostomy tube exchange as above. John Anderson MD Tube Check 02/12/16 0000 Signed Impressions: Service Date/Time: Friday, February 12, 2016 16:08 - CONCLUSION: Uncomplicated tube injection as above. Blaine Jackson MD Gastrostomy Tube Change 01/15/16 0000 Signed Impressions: Service Date/Time: Friday, January 15, 2016 12:28 - CONCLUSION: Successful GJ tube exchange as above. Scott Goode MD Abdomen Ultrasound 12/06/15 0000 Signed Impressions: Service Date/Time: Sunday, December 06, 2015 17:42 - CONCLUSION: 1. The gallbladder is unremarkable with no evidence of cholelithiasis. 2. Simple cyst in the left kidney. 3. Mild pyelocaliectasis in the right kidney. Salazar Thurman MD Upper Extremity Ultrasound 10/13/15 0000 Signed Impressions: Service Date/Time: Tuesday, October 13, 2015 09:51 - CONCLUSION: 1. No evidence of deep venous thrombosis. John Anderson MD Renal Ultrasound 10/07/15 0000 Signed Impressions: Service Date/Time: Wednesday, October 07, 2015 18:29 - CONCLUSION: 1. No acute findings. 3.6 cm left renal cyst. Putnam catheter in bladder. Amaury Ellsworth MD Tunnelled Chest Tube Removal 08/05/15 1100 Signed Impressions: Service Date/Time: Wednesday, August 05, 2015 11:00 - CONCLUSION: Uncomplicated chest tube removal. Blaine Jackson MD Chest Tube Change 07/31/15 0000 Signed Impressions: Service Date/Time: Friday, July 31, 2015 14:34 - CONCLUSION: Uncomplicated reposition of previously placed chest tube as above. Blaine Jackson MD Chest Tube Insertion 07/30/15 0000 Signed Impressions: Service Date/Time: July 14:50 - CONCLUSION: Uncomplicated chest tube placement as above. Blaine Jackson MD Catheter Change 07/27/15 0000 Signed Impressions: Service Date/Time: Monday, July 27, 2015 14:43 - CONCLUSION: Uncomplicated gastrostomy tube exchange as above. Blaine Jackson MD Chest CT 07/11/15 Signed Impressions: Service Date/Time: Saturday, July 11, 2015 09:49 - CONCLUSION: Scattered patchy densities significantly improved from previous study. Tiny anterior right basilar pneumothorax. Right-sided chest tube in good position. Néstor Matamoros MD Head CT 06/18/151902 Signed Impressions: Service Date/Time: , June 18, 2015 19:31 - CONCLUSION: Diffuse atrophy unchanged. No acute intracranial findings. Kush Briscoe MD Abdomen/Pelvis CT 06/18/151902 Signed Impressions: Service Date/Time: June 19:36 - CONCLUSION: 1. Chronic nonspecific urinary bladder wall thickening. Bladder collapsed with Putnam catheter in place. 2. Chronic bilateral mid to lower lung zone groundglass opacity. 3. Nonobstructing left renal calculus. 4. Distended rectum. Kush Briscoe MD Objective Remarks GENERAL: Cachectic patient with limbs contracted. Eyes open. SKIN: Warm and dry. HEAD: Normocephalic. Bitemporal muscle waisting. EYES: Left erythematous and with drainage. NECK: 8.0 Distal XLT trach in place CARDIOVASCULAR: Tachycardic without murmurs, gallops, or rubs. RESPIRATORY: Coarse breath sounds. GASTROINTESTINAL: Abdomen soft, non-tender, nondistended. MUSCULOSKELETAL: Contracted limbs. Wound on lower back several centimeters wide with clean margins. Muscle waisting. Bitemporal muscle waisting. NEURO: Eyes are open, not tracking. PSYCH: Calm. Procedures 07/26- PEG replacement 07/29- right pigtail catheter placement for new pneumothorax A/P Problem List: (1) Sepsis ICD Code: A41.9 Status: Acute (2) HCAP (healthcare-associated pneumonia) ICD Code: J18.9 Status: Acute (3) Fever ICD Code: R50.9 Status: Resolved (4) Sepsis due to urinary tract infection ICD Code: A41.9 Status: Resolved (5) Chronic respiratory failure ICD Code: J96.10 Status: Chronic (6) Parkinson disease ICD Code: G20 Status: Chronic (7) UTI (urinary tract infection) ICD Code: N39.0 Status: Resolved (8) Encephalopathy ICD Code: G93.40 Status: Resolved (9) Feeding tube obstruction ICD Code: T85.598A Status: Resolved (10) Conjunctivitis ICD Code: H10.9 Status: Resolved (11) Hypotension ICD Code: I95.9 Status: Resolved Assessment and Plan 55-year-old male with persistent sepsis, pneumonia, respiratory failure. Patient is contracted and noninteractive. Poor prognosis. Appreciate palliative care following. New sepsis sources: Tracheobronchitis and ESBL Kleb pneumo UTI MDR PSAE tracheobronchitis. ESBL MDR Kleb pneumo Cath associated UTI. h/o Recurrent aspiration tube feed related in past. Heena Cath associated UTI. - DC antibiotics per infectious disease and monitor. - Repeat CXR improving. Needs frequent suctioning. Discussed with the nurse. - He is dessating at times. He is using BipAP at night and during the day at times when he is dessating. Wean off BiPAP during the day as tolerated. Urinary candidiasis: Start fluconazole urine is clearing up, better urine OP. Hypotension 04/13. Received bolus of 500cc. Start IVF. BP better controlled today. Monitor VS. BP is better controlled. Chronic respiratory failure Chronic tracheostomy. Currently on continuous BiPAP. T piece off. S/P recurrent right pneumothorax status post pigtail catheter removal. On 28% FiO2 . - Suction and Levsin as needed - On prednisone taper per pulmonology. Continue with Duo nebs 4 times a day and when necessary. - Appreciate input from palliative care medicine. - Continue BiPAP at night per pulm Dr Kiser, appreciate recommendations Metabolic Encephalopathy Parkinson's disease underlying. Appear to have permanent damage. Sometimes able to minimally respond to commands, nonverbally. - Continue Sinemet. - Ativan as needed. Malnutrition/protein calorie - moderate to severe. Patient with BMI 14 , muscle waisting, bitemporal waisting. Status post PEG. Tolerating tube feeds. Tube clogged 04/08. IR replaced tube. - Current Colace/senna for bowel regimen. - continue PPI. - Continue tube feed. - Consult fast food manager Malfunctioning PEG again 04/12. Resolved with flushing the tube. Bilateral lower extremity contractures/ Unstageable sacral ulcer. Wound care consult appreciated. - Continue wound care. - Continue physical therapy to help with contractures. - turn q 2 hours - Agree with palliative care medicine, he cannot communicate his pain. Continue with schedule Lortab every 6 hours. GI prophylaxis: PPI. Stool softener PRN constipation. DVT PPx: Lovenox Discharge Planning Difficult discharge, no payor source. CM consult for DC Discussed with the nurse, pulm . Problem Qualifiers (1) Fever: Qualified Code: R50.9 - Fever, unspecified fever cause (2) Chronic respiratory failure: Qualified Code: J96.10 - Chronic respiratory failure, unspecified whether with hypoxia or hypercapnia (3) UTI (urinary tract infection): Qualified Code: N30.00 - Acute cystitis without hematuria (4) Conjunctivitis: Qualified Code: H10.9 - Conjunctivitis of left eye, unspecified conjunctivitis type Roz Pham MD Apr 18, 2016 12:39
[2016-04-18] MEDS: FLUCONAZOLE 100 MG PREMIX BAG 50 ML IV SCH (16:36)
[2016-04-18] MEDS: ENOXAPARIN SODIUM 40 MG/0.4 ML SYRINGE SQ SCH (21:36)
[2016-04-19] VITALS (11 sets, daily range): BP systolic 88–120; BP diastolic 53–75; PULSE 67–87; RESP 16–28; TEMP 95.5–98.8; O2SAT 93–98
[2016-04-19] MEDS: ACETAMINOPHEN/HYDROcodone 325 MG/5 MG TAB PO SCH ×4 (04:46→23:37)
[2016-04-19] MEDS: SODIUM CHLOR 0.9% 1000 ML INJ 1,000 ML IV SCH ×3 (04:46→23:54)
[2016-04-19] MEDS: BETHANECHOL CHL 10 MG TAB PO SCH ×3 (05:37→23:37)
[2016-04-19] MEDS: FREE WATER G-TUBE SCH ×5 (05:37→23:38)
[2016-04-19] MEDS: HYOSCYAMINE SOLN 0.125 MG/ML 15 ML BTL PO PRN ×2 (05:38→17:23)
[2016-04-19 06:13] LABS: AUTOMATED NEUTROPHIL # 4.1 TH/MM3 (1.8-7.7); BASOPHIL % 0.4 % (0.0-2.0); EOSINOPHIL # 0.1 TH/MM3 (0-0.4); EOSINOPHIL % 2.5 % (0.0-4.0); HEMATOCRIT 27.8 % (39.0-51.0); HEMO FLAGS DIFF FINAL; LYMPH % 11.5 % (9.0-44.0); LYMPHOCYTE # 0.6 TH/MM3 (1.0-4.8); MEAN CELL VOLUME 87.9 FL (80.0-100.0); MEAN CORPUSCULAR HEMOGLOBIN 27.8 PG (27.0-34.0); MEAN CORPUSCULAR HGB CONC 31.6 % (32.0-36.0); MONO % 12.2 % (0.0-8.0); NEUT % 73.4 % (16.0-70.0); PLATELET COUNT 183 TH/MM3 (150-450); RED BLOOD COUNT 3.16 MIL/MM3 (4.50-5.90); RED CELL DISTRIBUTION WIDTH 17.4 % (11.6-17.2); WHITE BLOOD COUNT 5.5 TH/MM3 (4.0-11.0)
[2016-04-19 06:39] LABS: BICARBONATE 35.2 MEQ/L (21.0-32.0); POTASSIUM 5.2 MEQ/L (3.5-5.1)
[2016-04-19] MEDS: CHLORHEXIDINE GLUCONATE 0.12% 30 ML CUP MT SCH ×2 (09:29→20:00)
[2016-04-19] MEDS: predniSONE 5 MG TAB PO SCH (09:30)
[2016-04-19] MEDS: LANSOPRAZOLE SOLUTAB 30 MG TAB NG SCH (09:31)
[2016-04-19] MEDS: ARTIFICIAL TEARS OPTH SOLN 15 ML BTL EACH EYE SCH ×3 (09:31→17:22)
[2016-04-19] MEDS: GABAPENTIN 300 MG CAP G-TUBE SCH ×2 (09:32→23:36)
[2016-04-19] MEDS: LACTOBACILLUS ACIDOPHILUS TAB PO SCH ×3 (09:32→17:20)
[2016-04-19] MEDS: CARBIDOPA/LEVODOPA 25 MG/100 MG TAB GT SCH ×4 (09:33→23:37)
[2016-04-19] MEDS: SODIUM CHLORIDE 0.9% FLUSH 5 ML FLUSH IVF SCH ×3 (09:35→23:38)
[2016-04-19] MEDS: COLLAGENASE OINT 30 GM TUBE TOP SCH (09:35)
[2016-04-19] MEDS: FLUCONAZOLE 100 MG PREMIX BAG 50 ML IV SCH (17:18)
--- NOTE | 2016-04-19 18:07 | HHI.PR ---
Subjective Remarks Patient on BiPAP he is wheezing. VSS. Objective Vitals Vital Signs Date Time Temp Pulse Resp B/P Pulse Ox O2 Delivery O2 Flow Rate FiO2 04/19/16 16:19 96.2 80 20 101/53 96 04/19/16 12:10 95.5 67 20 104/59 96 04/19/16 09:28 112/64 04/19/16 08:52 93 50 04/19/16 08:37 93 T-piece 40 04/19/16 08:37 93 04/19/16 08:35 96.0 87 20 88/54 94 04/19/16 05:30 93 50 04/19/16 04:00 98.8 80 20 120/75 96 04/19/16 00:00 98.7 81 28 117/64 96 04/18/16 20:15 Bi-Pap Trach Collar 04/18/16 20:00 98.6 79 16 110/75 97 04/18/16 19:13 94 40 04/18/16 19:09 93 BiPAP 40 I/O 04/18/16 04/18/16 04/18/16 04/19/16 04/19/16 04/19/16 07:00 15:00 23:00 07:00 15:00 23:00 Intake Total 588 ml 958 ml Output Total 600 ml 800 ml 200 ml 100 ml 300 ml Balance -600 ml -800 ml -200 ml 488 ml 658 ml IV Total 588 ml 638 ml Tube Feeding 320 ml Output Urine Total 600 ml 800 ml 200 ml 100 ml 300 ml # Bowel Movements 1 1 Result Diagram: 04/19/16 0550 04/19/16 0550 Imaging Last Impressions Chest X-Ray 04/16/16 0000 Signed Impressions: Service Date/Time: Saturday, April 16, 2016 15:36 - CONCLUSION: Decreased bilateral upper lobe infiltrates, now very mild. Erlin Escobar MD Abdomen X-Ray 04/16/16 0000 Signed Impressions: Service Date/Time: Saturday, April 16, 2016 22:52 - CONCLUSION: Intraluminal location of the jejunostomy tube is confirmed. Tai Jaquez MD PICC Line Insertion 04/14/16 0000 Signed Impressions: Service Date/Time: April 16:16 - CONCLUSION: 1. Uncomplicated central venous Power PICC line placement. 2. The PICC line can be used immediately. John Anderson MD Tube Change 04/08/16 0000 Signed Impressions: Service Date/Time: Friday, April 08, 2016 14:38 - CONCLUSION: Uncomplicated gastrojejunostomy tube exchange as above. John Anderson MD Tube Check 02/12/16 0000 Signed Impressions: Service Date/Time: Friday, February 12, 2016 16:08 - CONCLUSION: Uncomplicated tube injection as above. Blaine Jackson MD Gastrostomy Tube Change 01/15/16 0000 Signed Impressions: Service Date/Time: Friday, January 15, 2016 12:28 - CONCLUSION: Successful GJ tube exchange as above. Scott Goode MD Abdomen Ultrasound 12/06/15 0000 Signed Impressions: Service Date/Time: Sunday, December 06, 2015 17:42 - CONCLUSION: 1. The gallbladder is unremarkable with no evidence of cholelithiasis. 2. Simple cyst in the left kidney. 3. Mild pyelocaliectasis in the right kidney. Salazar Thurman MD Upper Extremity Ultrasound 10/13/15 0000 Signed Impressions: Service Date/Time: Tuesday, October 13, 2015 09:51 - CONCLUSION: 1. No evidence of deep venous thrombosis. John Anderson MD Renal Ultrasound 10/07/15 0000 Signed Impressions: Service Date/Time: Wednesday, October 07, 2015 18:29 - CONCLUSION: 1. No acute findings. 3.6 cm left renal cyst. Putnam catheter in bladder. Amaury Ellsworth MD Tunnelled Chest Tube Removal 08/05/15 1100 Signed Impressions: Service Date/Time: Wednesday, August 05, 2015 11:00 - CONCLUSION: Uncomplicated chest tube removal. Blaine Jackson MD Chest Tube Change 07/31/15 0000 Signed Impressions: Service Date/Time: Friday, July 31, 2015 14:34 - CONCLUSION: Uncomplicated reposition of previously placed chest tube as above. Blaine Jackson MD Chest Tube Insertion 07/30/15 0000 Signed Impressions: Service Date/Time: July 14:50 - CONCLUSION: Uncomplicated chest tube placement as above. Blaine Jackson MD Catheter Change 07/27/15 0000 Signed Impressions: Service Date/Time: Monday, July 27, 2015 14:43 - CONCLUSION: Uncomplicated gastrostomy tube exchange as above. Blaine Jackson MD Chest CT 07/11/15 0000 Signed Impressions: Service Date/Time: Saturday, July 11, 2015 09:49 - CONCLUSION: Scattered patchy densities significantly improved from previous study. Tiny anterior right basilar pneumothorax. Right-sided chest tube in good position. Néstor Matamoros MD Head CT 06/18/151902 Signed Impressions: Service Date/Time: June 19:31 - CONCLUSION: Diffuse atrophy unchanged. No acute intracranial findings. Kush Briscoe MD Abdomen/Pelvis CT 06/18/151902 Signed Impressions: Service Date/Time: June 19:36 - CONCLUSION: 1. Chronic nonspecific urinary bladder wall thickening. Bladder collapsed with Putnam catheter in place. 2. Chronic bilateral mid to lower lung zone groundglass opacity. 3. Nonobstructing left renal calculus. 4. Distended rectum. Kush Briscoe MD Objective Remarks GENERAL: Cachectic patient with limbs contracted. Eyes open. SKIN: Warm and dry. HEAD: Normocephalic. Bitemporal muscle waisting. EYES: Left erythematous and with drainage. NECK: 8.0 Distal XLT trach in place CARDIOVASCULAR: Tachycardic without murmurs, gallops, or rubs. RESPIRATORY: Coarse breath sounds. GASTROINTESTINAL: Abdomen soft, non-tender, nondistended. MUSCULOSKELETAL: Contracted limbs. Wound on lower back several centimeters wide with clean margins. Muscle waisting. Bitemporal muscle waisting. NEURO: Eyes are open, not tracking. PSYCH: Calm. Procedures 07/26- PEG replacement 07/29- right pigtail catheter placement for new pneumothorax A/P Problem List: (1) Sepsis ICD Code: A41.9 Status: Acute (2) HCAP (healthcare-associated pneumonia) ICD Code: J18.9 Status: Acute (3) Fever ICD Code: R50.9 Status: Resolved (4) Sepsis due to urinary tract infection ICD Code: A41.9 Status: Resolved (5) Chronic respiratory failure ICD Code: J96.10 Status: Chronic (6) Parkinson disease ICD Code: G20 Status: Chronic (7) UTI (urinary tract infection) ICD Code: N39.0 Status: Resolved (8) Encephalopathy ICD Code: G93.40 Status: Resolved (9) Feeding tube obstruction ICD Code: T85.598A Status: Resolved (10) Conjunctivitis ICD Code: H10.9 Status: Resolved (11) Hypotension ICD Code: I95.9 Status: Resolved Assessment and Plan 55-year-old male with persistent sepsis, pneumonia, respiratory failure. Patient is contracted and noninteractive. Poor prognosis. Appreciate palliative care following. New sepsis sources: Tracheobronchitis and ESBL Kleb pneumo UTI MDR PSAE tracheobronchitis. ESBL MDR Kleb pneumo Cath associated UTI. h/o Recurrent aspiration tube feed related in past. Heena Cath associated UTI. - DC antibiotics per infectious disease and monitor. - Repeat CXR improving. Needs frequent suctioning. Discussed with the nurse. - He is dessating at times. He is using BipAP at night and during the day at times when he is dessating. Wean off BiPAP during the day as tolerated. Urinary candidiasis: Start fluconazole urine is clearing up, better urine OP. Hypotension 04/13. Received bolus of 500cc. Start IVF. BP better controlled today. Monitor VS. BP is better controlled. Chronic respiratory failure Chronic tracheostomy. Currently on continuous BiPAP. T piece off. S/P recurrent right pneumothorax status post pigtail catheter removal. On 28% FiO2 . - Suction and Levsin as needed - On prednisone taper per pulmonology. Continue with Duo nebs 4 times a day and when necessary. - Appreciate input from palliative care medicine. - Continue BiPAP at night per pulm Dr Kiser, appreciate recommendations Metabolic Encephalopathy Parkinson's disease underlying. Appear to have permanent damage. Sometimes able to minimally respond to commands, nonverbally. - Continue Sinemet. - Ativan as needed. Malnutrition/protein calorie - moderate to severe. Patient with BMI 14 , muscle waisting, bitemporal waisting. Status post PEG. Tolerating tube feeds. Tube clogged 04/08. IR replaced tube. - Current Colace/senna for bowel regimen. - continue PPI. - Continue tube feed. - Consult data integrity specialist Malfunctioning PEG again 04/12. Resolved with flushing the tube. Bilateral lower extremity contractures/ Unstageable sacral ulcer. Wound care consult appreciated. - Continue wound care. - Continue physical therapy to help with contractures. - turn q 2 hours - Agree with palliative care medicine, he cannot communicate his pain. Continue with schedule Lortab every 6 hours. GI prophylaxis: PPI. Stool softener PRN constipation. DVT PPx: Lovenox Discharge Planning Difficult discharge, no payor source. CM consult for DC Discussed with the nurse, pulm . Problem Qualifiers (1) Fever: Qualified Code: R50.9 - Fever, unspecified fever cause (2) Chronic respiratory failure: Qualified Code: J96.10 - Chronic respiratory failure, unspecified whether with hypoxia or hypercapnia (3) UTI (urinary tract infection): Qualified Code: N30.00 - Acute cystitis without hematuria (4) Conjunctivitis: Qualified Code: H10.9 - Conjunctivitis of left eye, unspecified conjunctivitis type Roz Pham MD Apr 19, 2016 18:07
[2016-04-19] MEDS: ENOXAPARIN SODIUM 40 MG/0.4 ML SYRINGE SQ SCH (23:36)
[2016-04-20] VITALS (11 sets, daily range): BP systolic 85–132; BP diastolic 50–73; PULSE 70–94; RESP 20–28; TEMP 95.6–98.6; O2SAT 94–97
[2016-04-20] MEDS: FREE WATER G-TUBE SCH ×3 (06:00→16:58)
[2016-04-20] MEDS: ACETAMINOPHEN/HYDROcodone 325 MG/5 MG TAB PO SCH ×4 (06:33→21:15)
[2016-04-20] MEDS: BETHANECHOL CHL 10 MG TAB PO SCH ×3 (06:34→21:13)
[2016-04-20] MEDS: ARTIFICIAL TEARS OPTH SOLN 15 ML BTL EACH EYE SCH ×3 (09:00→16:59)
[2016-04-20] MEDS: CHLORHEXIDINE GLUCONATE 0.12% 30 ML CUP MT SCH ×2 (09:00→20:00)
[2016-04-20] MEDS: GABAPENTIN 300 MG CAP G-TUBE SCH ×2 (09:11→21:14)
[2016-04-20] MEDS: SODIUM CHLORIDE 0.9% FLUSH 5 ML FLUSH IVF SCH ×3 (09:12→21:00)
[2016-04-20] MEDS: LANSOPRAZOLE SOLUTAB 30 MG TAB NG SCH (09:12)
[2016-04-20] MEDS: LACTOBACILLUS ACIDOPHILUS TAB PO SCH ×3 (09:12→16:59)
[2016-04-20] MEDS: CARBIDOPA/LEVODOPA 25 MG/100 MG TAB GT SCH ×4 (09:15→21:14)
[2016-04-20] MEDS: predniSONE 5 MG TAB PO SCH (09:15)
[2016-04-20] MEDS: HYOSCYAMINE SOLN 0.125 MG/ML 15 ML BTL PO PRN (09:16)
[2016-04-20] MEDS: COLLAGENASE OINT 30 GM TUBE TOP SCH (09:16)
--- NOTE | 2016-04-20 12:51 | HHI.PR ---
Subjective Remarks Lethargic and on On Bipap 10/5 cm , FIo2 40 % . Weak in all limbs. Objective Vital Signs Date Time Temp Pulse Resp B/P Pulse Ox O2 Delivery O2 Flow Rate FiO2 04/20/16 12:21 96.4 82 22 87/52 95 04/20/16 09:50 97 50 04/20/16 07:30 97.5 82 22 99/60 97 04/20/16 06:05 98.6 94 20 132/73 97 04/20/16 05:36 97 50 04/20/16 00:21 97 50 04/20/16 00:00 96.1 78 22 122/57 96 04/19/16 20:05 94 50 04/19/16 20:00 96.8 79 16 101/57 98 04/19/16 20:00 97 Bi-Pap T-Piece 04/19/16 16:19 96.2 80 20 101/53 96 I/O 04/19/16 04/19/16 04/19/16 04/20/16 04/20/16 04/20/16 07:00 15:00 23:00 07:00 15:00 23:00 Intake Total 588 ml 958 ml 2417 ml 2655 ml Output Total 100 ml 300 ml 450 ml 200 ml Balance 488 ml 658 ml 1967 ml 2455 ml IV Total 588 ml 638 ml 2417 ml 982 ml Tube Feeding 320 ml 1673 ml Output Urine Total 100 ml 300 ml 450 ml 200 ml # Bowel Movements 1 1 0 Result Diagram: 04/19/16 0550 04/19/16 0550 Objective Remarks This is a thin white male who is , awake with a trach tube in place. HEENT: Pupils are reactive to light. CHEST:Decreased breath sounds,and occ wheezes. CARDIOVASCULAR: S1 and S2 is normal.No murmur. ABDOMEN: Soft, nondistended. BS +. He has a PEG and J tube in place. EXTREMITIES: Contractures.muscle wasting.Reflexes 1 + NEURO: Awake and has weak extremities. Skin is cool ,dry . Assessment and Plan Assessment and Plan IMPRESSION 1. Chronic Respiratory failure. 2. Sepsis, Aspiration. 3. Left basal Pneumonia, Resolved 4. Bi Basal pneumonia 5. Parkinson's disease 6. Dementia. 7. Severe Deconditioning. Plan : 1. Cont Bipap at 12/5 CM FIO2 35 %. 2. Nebs Bid , duoneb. 3. Tube feeds at 45 CC 4. T Bar in am at 50 % 5. Levsin .125 mg tid prn. 6. Cont Trach toilet and lavage. 7. PT evaluation 1 Darren Kiser MD Apr 20, 2016 12:51
--- NOTE | 2016-04-20 12:58 | HHI.PR ---
Subjective Remarks On BipAP, coarse breath sounds. No fever or chills. Objective Vitals Vital Signs Date Time Temp Pulse Resp B/P Pulse Ox O2 Delivery O2 Flow Rate FiO2 04/20/16 12:21 96.4 82 22 87/52 95 04/20/16 09:50 97 50 04/20/16 07:30 97.5 82 22 99/60 97 04/20/16 06:05 98.6 94 20 132/73 97 04/20/16 05:36 97 50 04/20/16 00:21 97 50 04/20/16 00:00 96.1 78 22 122/57 96 04/19/16 20:05 94 50 04/19/16 20:00 96.8 79 16 101/57 98 04/19/16 20:00 97 Bi-Pap T-Piece 04/19/16 16:19 96.2 80 20 101/53 96 I/O 04/19/16 04/19/16 04/19/16 04/20/16 04/20/16 04/20/16 07:00 15:00 23:00 07:00 15:00 23:00 Intake Total 588 ml 958 ml 2417 ml 2655 ml Output Total 100 ml 300 ml 450 ml 200 ml Balance 488 ml 658 ml 1967 ml 2455 ml IV Total 588 ml 638 ml 2417 ml 982 ml Tube Feeding 320 ml 1673 ml Output Urine Total 100 ml 300 ml 450 ml 200 ml # Bowel Movements 1 1 0 Result Diagram: 04/19/16 0550 04/19/16 0550 Imaging Last Impressions Chest X-Ray 04/16/16 0000 Signed Impressions: Service Date/Time: Saturday, April 16, 2016 15:36 - CONCLUSION: Decreased bilateral upper lobe infiltrates, now very mild. Erlin Escobar MD Abdomen X-Ray 04/16/16 0000 Signed Impressions: Service Date/Time: Saturday, April 16, 2016 22:52 - CONCLUSION: Intraluminal location of the jejunostomy tube is confirmed. Tai Jaquez MD PICC Line Insertion 04/14/16 0000 Signed Impressions: Service Date/Time: April 16:16 - CONCLUSION: 1. Uncomplicated central venous Power PICC line placement. 2. The PICC line can be used immediately. John Anderson MD Tube Change 04/08/16 0000 Signed Impressions: Service Date/Time: Friday, April 08, 2016 14:38 - CONCLUSION: Uncomplicated gastrojejunostomy tube exchange as above. John Anderson MD Tube Check 02/12/16 0000 Signed Impressions: Service Date/Time: Friday, February 12, 2016 16:08 - CONCLUSION: Uncomplicated tube injection as above. Blaine Jackson MD Gastrostomy Tube Change 01/15/16 0000 Signed Impressions: Service Date/Time: Friday, January 15, 2016 12:28 - CONCLUSION: Successful GJ tube exchange as above. Scott Goode MD Abdomen Ultrasound 12/06/15 0000 Signed Impressions: Service Date/Time: Sunday, December 06, 2015 17:42 - CONCLUSION: 1. The gallbladder is unremarkable with no evidence of cholelithiasis. 2. Simple cyst in the left kidney. 3. Mild pyelocaliectasis in the right kidney. Salazar Thurman MD Upper Extremity Ultrasound 10/13/15 0000 Signed Impressions: Service Date/Time: Tuesday, October 13, 2015 09:51 - CONCLUSION: 1. No evidence of deep venous thrombosis. John Anderson MD Renal Ultrasound 10/07/15 0000 Signed Impressions: Service Date/Time: Wednesday, October 07, 2015 18:29 - CONCLUSION: 1. No acute findings. 3.6 cm left renal cyst. Putnam catheter in bladder. Amaury Ellsworth MD Tunnelled Chest Tube Removal 08/05/15 1100 Signed Impressions: Service Date/Time: Wednesday, August 05, 2015 11:00 - CONCLUSION: Uncomplicated chest tube removal. Blaine Jackson MD Chest Tube Change 07/31/15 0000 Signed Impressions: Service Date/Time: Friday, July 31, 2015 14:34 - CONCLUSION: Uncomplicated reposition of previously placed chest tube as above. Blaine Jackson MD Chest Tube Insertion 07/30/15 0000 Signed Impressions: Service Date/Time: July 14:50 - CONCLUSION: Uncomplicated chest tube placement as above. Blaine Jackson MD Catheter Change 07/27/15 0000 Signed Impressions: Service Date/Time: Monday, July 27, 2015 14:43 - CONCLUSION: Uncomplicated gastrostomy tube exchange as above. Blaine Jackson MD Chest CT 07/11/15 0000 Signed Impressions: Service Date/Time: Saturday, July 11, 2015 09:49 - CONCLUSION: Scattered patchy densities significantly improved from previous study. Tiny anterior right basilar pneumothorax. Right-sided chest tube in good position. Néstor Matamoros MD Head CT 06/18/151902 Signed Impressions: Service Date/Time: June 19:31 - CONCLUSION: Diffuse atrophy unchanged. No acute intracranial findings. Kush Briscoe MD Abdomen/Pelvis CT 06/18/151902 Signed Impressions: Service Date/Time: , June 18, 2015 19:36 - CONCLUSION: 1. Chronic nonspecific urinary bladder wall thickening. Bladder collapsed with Putnam catheter in place. 2. Chronic bilateral mid to lower lung zone groundglass opacity. 3. Nonobstructing left renal calculus. 4. Distended rectum. Kush Briscoe MD Objective Remarks GENERAL: Cachectic patient with limbs contracted. Eyes open. SKIN: Warm and dry. HEAD: Normocephalic. Bitemporal muscle waisting. EYES: Left erythematous and with drainage. NECK: 8.0 Distal XLT trach in place CARDIOVASCULAR: Tachycardic without murmurs, gallops, or rubs. RESPIRATORY: Coarse breath sounds. GASTROINTESTINAL: Abdomen soft, non-tender, nondistended. MUSCULOSKELETAL: Contracted limbs. Wound on lower back several centimeters wide with clean margins. Muscle waisting. Bitemporal muscle waisting. NEURO: Eyes are open, not tracking. PSYCH: Calm. Procedures 07/26- PEG replacement 07/29- right pigtail catheter placement for new pneumothorax A/P Problem List: (1) Sepsis ICD Code: A41.9 Status: Acute (2) HCAP (healthcare-associated pneumonia) ICD Code: J18.9 Status: Acute (3) Fever ICD Code: R50.9 Status: Resolved (4) Sepsis due to urinary tract infection ICD Code: A41.9 Status: Resolved (5) Chronic respiratory failure ICD Code: J96.10 Status: Chronic (6) Parkinson disease ICD Code: G20 Status: Chronic (7) UTI (urinary tract infection) ICD Code: N39.0 Status: Resolved (8) Encephalopathy ICD Code: G93.40 Status: Resolved (9) Feeding tube obstruction ICD Code: T85.598A Status: Resolved (10) Conjunctivitis ICD Code: H10.9 Status: Resolved (11) Hypotension ICD Code: I95.9 Status: Resolved Assessment and Plan 55-year-old male with persistent sepsis, pneumonia, respiratory failure. Patient is contracted and noninteractive. Poor prognosis. Appreciate palliative care following. New sepsis sources: Tracheobronchitis and ESBL Kleb pneumo UTI MDR PSAE tracheobronchitis. ESBL MDR Kleb pneumo Cath associated UTI. h/o Recurrent aspiration tube feed related in past. Heena Cath associated UTI. - DC antibiotics per infectious disease and monitor. - Repeat CXR improving. Needs frequent suctioning. Discussed with the nurse. - He is dessating at times. He is using BipAP at night and during the day at times when he is dessating. Wean off BiPAP during the day as tolerated. Urinary candidiasis: Start fluconazole urine is clearing up, better urine OP. Hypotension 04/13. Received bolus of 500cc. Start IVF. BP better controlled today. Monitor VS. BP is better controlled. Chronic respiratory failure Chronic tracheostomy. Currently on continuous BiPAP. T piece off. S/P recurrent right pneumothorax status post pigtail catheter removal. On 28% FiO2 . - Suction and Levsin as needed - On prednisone taper per pulmonology. Continue with Duo nebs 4 times a day and when necessary. - Appreciate input from palliative care medicine. - Continue BiPAP at night per pulm Dr Kiser, appreciate recommendations Metabolic Encephalopathy Parkinson's disease underlying. Appear to have permanent damage. Sometimes able to minimally respond to commands, nonverbally. - Continue Sinemet. - Ativan as needed. Malnutrition/protein calorie - moderate to severe. Patient with BMI 14 , muscle waisting, bitemporal waisting. Status post PEG. Tolerating tube feeds. Tube clogged 3/. IR replaced tube. - Current Colace/senna for bowel regimen. - continue PPI. - Continue tube feed. - Consult land conservation specialist Malfunctioning PEG again 04/12. Resolved with flushing the tube. Bilateral lower extremity contractures/ Unstageable sacral ulcer. Wound care consult appreciated. - Continue wound care. - Continue physical therapy to help with contractures. - turn q 2 hours - Agree with palliative care medicine, he cannot communicate his pain. Continue with schedule Lortab every 6 hours. GI prophylaxis: PPI. Stool softener PRN constipation. DVT PPx: Lovenox Discharge Planning Difficult discharge, no payor source. CM consult for DC Discussed with the nurse, pulm . Problem Qualifiers (1) Fever: Qualified Code: R50.9 - Fever, unspecified fever cause (2) Chronic respiratory failure: Qualified Code: J96.10 - Chronic respiratory failure, unspecified whether with hypoxia or hypercapnia (3) UTI (urinary tract infection): Qualified Code: N30.00 - Acute cystitis without hematuria (4) Conjunctivitis: Qualified Code: H10.9 - Conjunctivitis of left eye, unspecified conjunctivitis type Roz Pham MD Apr 20, 2016 12:58
[2016-04-20] MEDS ORDERED: SODIUM CHLOR 0.9% 1000 ML INJ 1,000 ML IV ONE (15:15)
[2016-04-20] MEDS: SODIUM CHLOR 0.9% 1000 ML INJ 1,000 ML IV SCH (15:19)
[2016-04-20] MEDS: FLUCONAZOLE 100 MG PREMIX BAG 50 ML IV SCH (15:19)
[2016-04-20] MEDS: ENOXAPARIN SODIUM 40 MG/0.4 ML SYRINGE SQ SCH (21:13)
--- NOTE | 2016-04-20 22:35 | RADRPT ---
EXAM DATE/TIME: 04/20/2016 21:53 [facility] COMPARISON: CHEST SINGLE AP, April 16, 2016, 15:36. INDICATIONS : Short of breath. MEDICAL HISTORY : Diabetes mellitus type II. Respiratory failure. SURGICAL HISTORY : G-tube. ENCOUNTER: Subsequent ACUITY: 4 - 6 months PAIN SCORE: Non-responsive. LOCATION: Bilateral chest FINDINGS: Endotracheal tube is noted and the tip terminates 1.4 cm above the kalie. Right PICC line catheter i s present and the distal tip not well-visualized though extends to at least the level of the SVC. The re is consolidation in the left lower lobe with air bronchogram formation. Right lung is clear. CONCLUSION: Left lower lobe consolidation. Jeramie Manjarrez MD on April 20, 2016 at 22:33 Board Certified Radiologist. This report was verified electronically.
[2016-04-20 23:18] LABS: AUTOMATED NEUTROPHIL # 3.9 TH/MM3 (1.8-7.7); BASOPHIL % 0.5 % (0.0-2.0); EOSINOPHIL # 0.1 TH/MM3 (0-0.4); EOSINOPHIL % 2.6 % (0.0-4.0); HEMATOCRIT 26.9 % (39.0-51.0); HEMO FLAGS DIFF FINAL; LYMPH % 11.6 % (9.0-44.0); LYMPHOCYTE # 0.6 TH/MM3 (1.0-4.8); MEAN CELL VOLUME 89.6 FL (80.0-100.0); MEAN CORPUSCULAR HEMOGLOBIN 27.7 PG (27.0-34.0); MEAN CORPUSCULAR HGB CONC 30.9 % (32.0-36.0); MONO % 11.2 % (0.0-8.0); NEUT % 74.1 % (16.0-70.0); PLATELET COUNT 150 TH/MM3 (150-450); RED CELL DISTRIBUTION WIDTH 16.6 % (11.6-17.2); WHITE BLOOD COUNT 5.3 TH/MM3 (4.0-11.0)
[2016-04-20 23:40] LABS: BICARBONATE 38.4 MEQ/L (21.0-32.0); POTASSIUM 5.2 MEQ/L (3.5-5.1)
[2016-04-21] VITALS (13 sets, daily range): BP systolic 80–111; BP diastolic 51–74; PULSE 72–74; RESP 22–24; TEMP 95.6–97.9; O2SAT 91–98
[2016-04-21] MEDS: ACETAMINOPHEN/HYDROcodone 325 MG/5 MG TAB PO SCH ×4 (04:00→22:53)
[2016-04-21] MEDS: BETHANECHOL CHL 10 MG TAB PO SCH ×3 (05:05→22:52)
[2016-04-21] MEDS: HYOSCYAMINE SOLN 0.125 MG/ML 15 ML BTL PO PRN ×3 (05:05→22:56)
[2016-04-21] MEDS: FREE WATER G-TUBE SCH ×5 (05:05→22:53)
--- NOTE | 2016-04-21 08:39 | HHI.PR ---
Subjective Remarks With low BP, however the patient also with elevated BNP. On BiPAP . Will give one bolus 500 NS. Will give albumin IV x 1 time and 20 IV lasix. Discussed with the nurse. Objective Vitals Vital Signs Date Time Temp Pulse Resp B/P Pulse Ox O2 Delivery O2 Flow Rate FiO2 04/21/16 07:56 91 50 04/21/16 07:49 96.4 73 22 80/51 96 04/21/16 06:41 95.6 74 24 109/67 96 04/21/16 05:56 98 50 04/21/16 05:50 20 04/21/16 02:30 96 50 04/21/16 00:00 96.3 72 22 100/59 96 04/20/16 20:09 94 50 04/20/16 20:00 95.6 70 28 111/68 95 04/20/16 17:00 113/66 04/20/16 16:31 96.7 80 22 85/50 97 04/20/16 12:21 96.4 82 22 87/52 95 04/20/16 09:50 97 50 I/O 04/20/16 04/20/16 04/20/16 04/21/16 04/21/16 04/21/16 07:00 15:00 23:00 07:00 15:00 23:00 Intake Total 2655 ml Output Total 200 ml 350 ml 200 ml Balance 2455 ml -350 ml -200 ml IV Total 982 ml Tube Feeding 1673 ml Output Urine Total 200 ml 350 ml 200 ml # Bowel Movements 0 1 1 1 Result Diagram: 04/20/16 2253 04/20/16 2253 Imaging Last Impressions Chest X-Ray 04/20/16 0000 Signed Impressions: Service Date/Time: Wednesday, April 20, 2016 21:53 - CONCLUSION: Left lower lobe consolidation. Jeramie Manjarrez MD Abdomen X-Ray 04/16/16 0000 Signed Impressions: Service Date/Time: Saturday, April 16, 2016 22:52 - CONCLUSION: Intraluminal location of the jejunostomy tube is confirmed. Tai Jaquez MD PICC Line Insertion 04/14/16 0000 Signed Impressions: Service Date/Time: April 16:16 - CONCLUSION: 1. Uncomplicated central venous Power PICC line placement. 2. The PICC line can be used immediately. John Anderson MD Tube Change 04/08/16 0000 Signed Impressions: Service Date/Time: Friday, April 08, 2016 14:38 - CONCLUSION: Uncomplicated gastrojejunostomy tube exchange as above. John Anderson MD Tube Check 02/12/16 0000 Signed Impressions: Service Date/Time: Friday, February 12, 2016 16:08 - CONCLUSION: Uncomplicated tube injection as above. Blaine Jackson MD Gastrostomy Tube Change 01/15/16 0000 Signed Impressions: Service Date/Time: Friday, January 15, 2016 12:28 - CONCLUSION: Successful GJ tube exchange as above. Scott Goode MD Abdomen Ultrasound 12/06/15 0000 Signed Impressions: Service Date/Time: Sunday, December 06, 2015 17:42 - CONCLUSION: 1. The gallbladder is unremarkable with no evidence of cholelithiasis. 2. Simple cyst in the left kidney. 3. Mild pyelocaliectasis in the right kidney. Salazar Thurman MD Upper Extremity Ultrasound 10/13/15 0000 Signed Impressions: Service Date/Time: Tuesday, October 13, 2015 09:51 - CONCLUSION: 1. No evidence of deep venous thrombosis. John Anderson MD Renal Ultrasound 10/07/15 0000 Signed Impressions: Service Date/Time: Wednesday, October 07, 2015 18:29 - CONCLUSION: 1. No acute findings. 3.6 cm left renal cyst. Putnam catheter in bladder. Amaury Ellsworth MD Tunnelled Chest Tube Removal 08/05/15 1100 Signed Impressions: Service Date/Time: Wednesday, August 05, 2015 11:00 - CONCLUSION: Uncomplicated chest tube removal. Blaine Jackson MD Chest Tube Change 07/31/15 0000 Signed Impressions: Service Date/Time: Friday, July 31, 2015 14:34 - CONCLUSION: Uncomplicated reposition of previously placed chest tube as above. Blaine Jackson MD Chest Tube Insertion 07/30/15 0000 Signed Impressions: Service Date/Time: July 14:50 - CONCLUSION: Uncomplicated chest tube placement as above. Blaine Jackson MD Catheter Change 07/27/15 0000 Signed Impressions: Service Date/Time: Monday, July 27, 2015 14:43 - CONCLUSION: Uncomplicated gastrostomy tube exchange as above. Blaine Jackson MD Chest CT 07/11/15 0000 Signed Impressions: Service Date/Time: Saturday, July 11, 2015 09:49 - CONCLUSION: Scattered patchy densities significantly improved from previous study. Tiny anterior right basilar pneumothorax. Right-sided chest tube in good position. Néstor Matamoros MD Head CT 06/18/151902 Signed Impressions: Service Date/Time: June 19:31 - CONCLUSION: Diffuse atrophy unchanged. No acute intracranial findings. Kush Briscoe MD Abdomen/Pelvis CT 06/18/151902 Signed Impressions: Service Date/Time: , June 18, 2015 19:36 - CONCLUSION: 1. Chronic nonspecific urinary bladder wall thickening. Bladder collapsed with Putnam catheter in place. 2. Chronic bilateral mid to lower lung zone groundglass opacity. 3. Nonobstructing left renal calculus. 4. Distended rectum. Kush Briscoe MD Objective Remarks GENERAL: Cachectic patient with limbs contracted. Eyes open. SKIN: Warm and dry. HEAD: Normocephalic. Bitemporal muscle waisting. EYES: Left erythematous and with drainage. NECK: 8.0 Distal XLT trach in place CARDIOVASCULAR: Tachycardic without murmurs, gallops, or rubs. RESPIRATORY: Coarse breath sounds. GASTROINTESTINAL: Abdomen soft, non-tender, nondistended. MUSCULOSKELETAL: Contracted limbs. Wound on lower back several centimeters wide with clean margins. Muscle waisting. Bitemporal muscle waisting. NEURO: Eyes are open, not tracking. PSYCH: Calm. Procedures 07/26- PEG replacement 07/29- right pigtail catheter placement for new pneumothorax A/P Problem List: (1) Sepsis ICD Code: A41.9 Status: Acute (2) HCAP (healthcare-associated pneumonia) ICD Code: J18.9 Status: Acute (3) Fever ICD Code: R50.9 Status: Resolved (4) Sepsis due to urinary tract infection ICD Code: A41.9 Status: Resolved (5) Chronic respiratory failure ICD Code: J96.10 Status: Chronic (6) Parkinson disease ICD Code: G20 Status: Chronic (7) UTI (urinary tract infection) ICD Code: N39.0 Status: Resolved (8) Encephalopathy ICD Code: G93.40 Status: Resolved (9) Feeding tube obstruction ICD Code: T85.598A Status: Resolved (10) Conjunctivitis ICD Code: H10.9 Status: Resolved (11) Hypotension ICD Code: I95.9 Status: Resolved Assessment and Plan 55-year-old male with persistent sepsis, pneumonia, respiratory failure. Patient is contracted and noninteractive. Poor prognosis. Appreciate palliative care following. New sepsis sources: Tracheobronchitis and ESBL Kleb pneumo UTI MDR PSAE tracheobronchitis. ESBL MDR Kleb pneumo Cath associated UTI. h/o Recurrent aspiration tube feed related in past. Heena Cath associated UTI. - DC antibiotics per infectious disease and monitor. - Repeat CXR improving. Needs frequent suctioning. Discussed with the nurse. - He is dessating at times. He is using BipAP at night and during the day at times when he is dessating. Wean off BiPAP during the day as tolerated. Urinary candidiasis: Start fluconazole urine is clearing up, better urine OP. Hypotension. Received bolus of 500cc. Start IVF. BP better controlled today. Monitor VS. BP is better controlled. However the patient with elevated BNP as well. 04/21 BP 80/51 , however the patient also with elevated BNP in 900. On BiPAP . Will give one bolus 500 NS. Will give albumin IV x 1 time and 20 IV lasix. Monitor VS Acute on Chronic respiratory failure Chronic tracheostomy. Currently on continuous BiPAP. T piece off. S/P recurrent right pneumothorax status post pigtail catheter removal. On 28% FiO2 3 /6. - Suction and Levsin as needed - On prednisone taper per pulmonology. Continue with Duo nebs 4 times a day and when necessary. - Appreciate input from palliative care medicine. - Continue BiPAP at night per pulm Dr Kiser, appreciate recommendations - Patient need BipAP during the day as well on/off Metabolic Encephalopathy Parkinson's disease underlying. Appear to have permanent damage. Sometimes able to minimally respond to commands, nonverbally. - Continue Sinemet. - Ativan as needed. Malnutrition/protein calorie - moderate to severe. Patient with BMI 14 , muscle waisting, bitemporal waisting. Status post PEG. Tolerating tube feeds. Tube clogged 3/. IR replaced tube. - Current Colace/senna for bowel regimen. - continue PPI. - Continue tube feed. - Consult room inspector Malfunctioning PEG again 04/12. Resolved with flushing the tube. Bilateral lower extremity contractures/ Unstageable sacral ulcer. Wound care consult appreciated. - Continue wound care. - Continue physical therapy to help with contractures. - turn q 2 hours - Agree with palliative care medicine, he cannot communicate his pain. Continue with schedule Lortab every 6 hours. GI prophylaxis: PPI. Stool softener PRN constipation. DVT PPx: Lovenox Discharge Planning Difficult discharge, no payor source. CM consult for DC Discussed with the nurse, pulm . Problem Qualifiers (1) Fever: Qualified Code: R50.9 - Fever, unspecified fever cause (2) Chronic respiratory failure: Qualified Code: J96.10 - Chronic respiratory failure, unspecified whether with hypoxia or hypercapnia (3) UTI (urinary tract infection): Qualified Code: N30.00 - Acute cystitis without hematuria (4) Conjunctivitis: Qualified Code: H10.9 - Conjunctivitis of left eye, unspecified conjunctivitis type Roz Pham MD Apr 21, 2016 08:39
[2016-04-21] MEDS ORDERED: SODIUM CHLORID 0.9% 500 ML INJ 500 ML IV ONE (08:45)
[2016-04-21] MEDS ORDERED: FUROSEMIDE 20 MG/2 ML VIAL IV PUSH ONE (08:45)
[2016-04-21] MEDS ORDERED: SODIUM CHLOR 0.9% 1000 ML INJ 1,000 ML IV ONE (08:45)
[2016-04-21] MEDS ORDERED: ALBUMIN HUMAN 25% 25 GM/100 ML BAGP IV ONE (08:45)
[2016-04-21] MEDS: COLLAGENASE OINT 30 GM TUBE TOP SCH (09:00)
[2016-04-21] MEDS: SODIUM CHLORIDE 0.9% FLUSH 5 ML FLUSH IVF SCH ×3 (09:00→22:53)
[2016-04-21] MEDS: LACTOBACILLUS ACIDOPHILUS TAB PO SCH ×3 (09:58→17:58)
[2016-04-21] MEDS: CHLORHEXIDINE GLUCONATE 0.12% 30 ML CUP MT SCH ×2 (09:58→22:52)
[2016-04-21] MEDS: CARBIDOPA/LEVODOPA 25 MG/100 MG TAB GT SCH ×4 (09:59→22:52)
[2016-04-21] MEDS: GABAPENTIN 300 MG CAP G-TUBE SCH ×2 (09:59→22:52)
[2016-04-21] MEDS: LANSOPRAZOLE SOLUTAB 30 MG TAB NG SCH (09:59)
[2016-04-21] MEDS: predniSONE 5 MG TAB PO SCH (09:59)
[2016-04-21] MEDS: ARTIFICIAL TEARS OPTH SOLN 15 ML BTL EACH EYE SCH ×3 (10:01→17:58)
[2016-04-21 12:39] LABS: ALKALINE PHOSPHATASE 85 U/L (45-117); ALT (GPT) 8 U/L (12-78); ANION GAP 2 MEQ/L (5-15); AST (GOT) 16 U/L (15-37); BICARBONATE 39.2 MEQ/L (21.0-32.0); BLOOD UREA NITROGEN 19 MG/DL (7-18); CHLORIDE 100 MEQ/L (98-107); GLOMERULAR FILTRATION RATE 340 ML/MIN (>89); POTASSIUM 5.1 MEQ/L (3.5-5.1); SODIUM (NA) 141 MEQ/L (136-145); TOTAL BILIRUBIN ADULT 0.2 MG/DL (0.2-1.0)
[2016-04-21] MEDS: FLUCONAZOLE 100 MG PREMIX BAG 50 ML IV SCH (17:22)
--- NOTE | 2016-04-21 18:14 | HHI.PR ---
Subjective Remarks Lethargic and on On Bipap 10/5 cm , FIo2 40 % .Failed T bar trial today. Objective Vital Signs Date Time Temp Pulse Resp B/P Pulse Ox O2 Delivery O2 Flow Rate FiO2 04/21/16 17:49 96 50 04/21/16 15:55 96.5 73 22 104/74 96 04/21/16 14:35 97 50 04/21/16 12:25 96.7 72 22 95/60 94 04/21/16 12:07 97 04/21/16 09:58 Bi-Pap 50 04/21/16 07:56 91 50 04/21/16 07:49 96.4 73 22 80/51 96 04/21/16 06:41 95.6 74 24 109/67 96 04/21/16 05:56 98 50 04/21/16 05:50 20 04/21/16 02:30 96 50 04/21/16 00:00 96.3 72 22 100/59 96 04/20/16 20:09 94 50 04/20/16 20:00 95.6 70 28 111/68 95 I/O 04/20/16 04/20/16 04/20/16 04/21/16 04/21/16 04/21/16 07:00 15:00 23:00 07:00 15:00 23:00 Intake Total 2655 ml 363 ml Output Total 200 ml 350 ml 200 ml 200 ml Balance 2455 ml -350 ml -200 ml 163 ml IV Total 982 ml Tube Feeding 1673 ml 363 ml Output Urine Total 200 ml 350 ml 200 ml 200 ml # Bowel Movements 0 1 1 1 Result Diagram: 04/20/16 2253 04/21/16 1119 Objective Remarks This is a thin white male who is , awake with a trach tube in place. HEENT: Pupils are reactive to light. CHEST:Decreased breath sounds,and occ wheezes.Basal crackles. CARDIOVASCULAR: S1 and S2 is normal.No murmur. ABDOMEN: Soft, nondistended. BS +. He has a PEG and J tube in place. EXTREMITIES: Contractures.muscle wasting.Reflexes 1 + NEURO: Awake and has weak extremities. Skin is dry . Assessment and Plan Assessment and Plan IMPRESSION 1. Chronic Respiratory failure. 2. Sepsis, Aspiration. 3. Left basal Pneumonia, Resolved 4. Bi Basal pneumonia 5. Parkinson's disease 6. Dementia. 7. Severe Deconditioning. Plan : 1. Cont Bipap at 12/5 CM FIO2 45 %. 2. Nebs Bid , duoneb. 3. Tube feeds at 45 CC 4. CBC, BMP 5. Levsin .125 mg tid prn. 6. Cont Trach toilet and lavage. 1 Darren Kiser MD Apr 21, 2016 18:14
[2016-04-21 22:00] LABS: HEMATOCRIT 25.5 % (39.0-51.0); MEAN CELL VOLUME 88.6 FL (80.0-100.0); MEAN CORPUSCULAR HEMOGLOBIN 27.3 PG (27.0-34.0); MEAN CORPUSCULAR HGB CONC 30.8 % (32.0-36.0); PLATELET COUNT 115 TH/MM3 (150-450); RED BLOOD COUNT 2.88 MIL/MM3 (4.50-5.90); RED CELL DISTRIBUTION WIDTH 15.9 % (11.6-17.2); REVIEW FLAG FINAL; WHITE BLOOD COUNT 4.1 TH/MM3 (4.0-11.0)
[2016-04-21] MEDS: ENOXAPARIN SODIUM 40 MG/0.4 ML SYRINGE SQ SCH (22:53)
[2016-04-22] VITALS (8 sets, daily range): BP systolic 81–115; BP diastolic 46–69; PULSE 57–76; RESP 10–24; TEMP 90.6–98.9; O2SAT 70–100
[2016-04-22] MEDS: LORazepam 1 MG TAB G-TUBE PRN (03:16)
[2016-04-22] MEDS: ACETAMINOPHEN/HYDROcodone 325 MG/5 MG TAB PO SCH ×3 (05:25→21:51)
[2016-04-22] MEDS: BETHANECHOL CHL 10 MG TAB PO SCH ×3 (05:25→22:00)
[2016-04-22] MEDS: FREE WATER G-TUBE SCH ×3 (05:26→21:52)
[2016-04-22 05:56] LABS: AUTOMATED NEUTROPHIL # 2.9 TH/MM3 (1.8-7.7); BASOPHIL % 0.6 % (0.0-2.0); EOSINOPHIL # 0.2 TH/MM3 (0-0.4); EOSINOPHIL % 3.8 % (0.0-4.0); HEMATOCRIT 26.1 % (39.0-51.0); HEMO FLAGS DIFF FINAL; LYMPH % 14.5 % (9.0-44.0); LYMPHOCYTE # 0.6 TH/MM3 (1.0-4.8); MEAN CELL VOLUME 89.1 FL (80.0-100.0); MEAN CORPUSCULAR HEMOGLOBIN 27.3 PG (27.0-34.0); MEAN CORPUSCULAR HGB CONC 30.6 % (32.0-36.0); MONO % 11.6 % (0.0-8.0); NEUT % 69.5 % (16.0-70.0); PLATELET COUNT 120 TH/MM3 (150-450); RED BLOOD COUNT 2.93 MIL/MM3 (4.50-5.90); RED CELL DISTRIBUTION WIDTH 16.5 % (11.6-17.2); WHITE BLOOD COUNT 4.1 TH/MM3 (4.0-11.0)
[2016-04-22 06:18] LABS: BICARBONATE 43.4 MEQ/L (21.0-32.0); POTASSIUM 4.9 MEQ/L (3.5-5.1)
[2016-04-22] MEDS: CHLORHEXIDINE GLUCONATE 0.12% 30 ML CUP MT SCH ×2 (08:00→20:00)
[2016-04-22] MEDS ORDERED: LEVOFLOXACIN ORAL SOLN 2500 MG/100 ML BOTTLE TUBE SCH (09:00)
[2016-04-22] MEDS: SODIUM CHLORIDE 0.9% FLUSH 5 ML FLUSH IVF SCH ×3 (09:00→21:00)
[2016-04-22] MEDS: LACTOBACILLUS ACIDOPHILUS TAB PO SCH ×3 (09:39→18:00)
[2016-04-22] MEDS: CARBIDOPA/LEVODOPA 25 MG/100 MG TAB GT SCH ×2 (09:40→21:52)
[2016-04-22] MEDS: GABAPENTIN 300 MG CAP G-TUBE SCH ×2 (09:40→21:00)
[2016-04-22] MEDS: LANSOPRAZOLE SOLUTAB 30 MG TAB NG SCH (09:40)
[2016-04-22] MEDS: predniSONE 5 MG TAB PO SCH (09:41)
[2016-04-22] MEDS: ARTIFICIAL TEARS OPTH SOLN 15 ML BTL EACH EYE SCH ×3 (09:45→22:03)
[2016-04-22] MEDS: COLLAGENASE OINT 30 GM TUBE TOP SCH (09:46)
--- NOTE | 2016-04-22 13:01 | HHI.PR ---
Subjective Remarks Lethargic and on On Bipap 12/5 cm , FIo2 40 % .Failed T bar trial today. Now on 100 % FIo2 Objective Vital Signs Date Time Temp Pulse Resp B/P Pulse Ox O2 Delivery O2 Flow Rate FiO2 04/22/16 12:12 90.6 57 10 81/46 100 04/22/16 10:41 12 04/22/16 08:35 76 22 95/53 95 04/22/16 08:30 70 50 04/22/16 08:30 91 100 04/22/16 08:00 96 T-piece 6.00 50 04/22/16 07:00 98.9 71 22 95/53 95 04/22/16 05:30 98.8 71 24 111/69 96 04/22/16 02:33 95 50 04/22/16 00:15 98.1 75 23 115/58 99 04/21/16 21:10 95 50 04/21/16 20:45 97.9 73 24 111/59 96 04/21/16 17:49 96 50 04/21/16 15:55 96.5 73 22 104/74 96 04/21/16 14:35 97 50 I/O 04/21/16 04/21/16 04/21/16 04/22/16 04/22/16 04/22/16 07:00 15:00 23:00 07:00 15:00 23:00 Intake Total 363 ml 0 ml 0 ml Output Total 200 ml 100 ml 200 ml Balance 163 ml -100 ml -200 ml Intake Oral 0 ml 0 ml Tube Feeding 363 ml Output Urine Total 200 ml 100 ml 200 ml # Bowel Movements 1 0 0 Result Diagram: 04/22/1643 04/22/1643 Objective Remarks This is a thin white male who is , awake with a trach tube in place. HEENT: Pupils are reactive to light. CHEST:Decreased breath sounds,and few wheezes. has Basal crackles. CARDIOVASCULAR: S1 and S2 is normal.No murmur. ABDOMEN: Soft, nondistended. BS +. He has a PEG and J tube in place. EXTREMITIES: Contractures.muscle wasting.Reflexes 1 + NEURO: Awake and has weak extremities. Skin is dry . Assessment and Plan Assessment and Plan IMPRESSION 1. Chronic Respiratory failure. 2. Sepsis, Aspiration. 3. Left basal Pneumonia, Resolved 4. Bi Basal pneumonia 5. Parkinson's disease 6. Dementia. 7. Severe Deconditioning. Plan : 1. Cont Bipap at 12/5 CM FIO2 50 %. 2. Nebs Bid , duoneb. 3. Tube feeds at 45 CC 4. CXR in am 5. Levsin .125 mg tid prn. 6. Cont Trach toilet and lavage. 1 Darren Kiser MD Apr 22, 2016 13:01
[2016-04-22] MEDS: FLUCONAZOLE 100 MG PREMIX BAG 50 ML IV SCH (16:00)
--- NOTE | 2016-04-22 18:10 | HHI.PR ---
Subjective Remarks LATE ENTRY: THE PATIENT WAS SEEN EARLIER TODAY. I was paged by the nurse earlier today. Patient is requiring more O2 , he is deteriorating. Patient is non responsive to sternal rub, he placed on 100% O2. His BP is < 90. I spoke with Dr Julee ennis, patient with meaningless recovery , recommends hospice, recommends not moving patient to ICU, patient is also DNR. He is deteriorating. inclines towards hospice/ comfort measures. However daughter POA not decided. I spoke with hospice as well, awaiting call back from daughter for further goal of care. Objective Vitals Vital Signs Date Time Temp Pulse Resp B/P Pulse Ox O2 Delivery O2 Flow Rate FiO2 04/22/16 12:12 90.6 57 10 81/46 100 04/22/16 10:41 12 04/22/16 08:35 76 22 95/53 95 04/22/16 08:30 70 50 04/22/16 08:30 91 100 04/22/16 08:00 96 T-piece 6.00 50 04/22/16 07:00 98.9 71 22 95/53 95 04/22/16 05:30 98.8 71 24 111/69 96 04/22/16 02:33 95 50 04/22/16 00:15 98.1 75 23 115/58 99 04/21/16 21:10 95 50 04/21/16 20:45 97.9 73 24 111/59 96 I/O 04/21/16 04/21/16 04/21/16 04/22/16 04/22/16 04/22/16 07:00 15:00 23:00 07:00 15:00 23:00 Intake Total 363 ml 0 ml 0 ml Output Total 200 ml 100 ml 200 ml 50 ml Balance 163 ml -100 ml -200 ml -50 ml Intake Oral 0 ml 0 ml Tube Feeding 363 ml Output Urine Total 200 ml 100 ml 200 ml 50 ml # Bowel Movements 1 0 0 Result Diagram: 04/22/16 0543 04/22/1643 Imaging Last Impressions Chest X-Ray 04/20/16 0000 Signed Impressions: Service Date/Time: Wednesday, April 20, 2016 21:53 - CONCLUSION: Left lower lobe consolidation. Jeramie Manjarrez MD Abdomen X-Ray 04/16/16 0000 Signed Impressions: Service Date/Time: Saturday, April 16, 2016 22:52 - CONCLUSION: Intraluminal location of the jejunostomy tube is confirmed. Tai Jaquez MD PICC Line Insertion 04/14/16 0000 Signed Impressions: Service Date/Time: April 16:16 - CONCLUSION: 1. Uncomplicated central venous Power PICC line placement. 2. The PICC line can be used immediately. John Anderson MD Tube Change 04/08/16 0000 Signed Impressions: Service Date/Time: Friday, April 08, 2016 14:38 - CONCLUSION: Uncomplicated gastrojejunostomy tube exchange as above. John Anderson MD Tube Check 02/12/16 0000 Signed Impressions: Service Date/Time: Friday, February 12, 2016 16:08 - CONCLUSION: Uncomplicated tube injection as above. Blaine Jackson MD Gastrostomy Tube Change 01/15/16 0000 Signed Impressions: Service Date/Time: Friday, January 15, 2016 12:28 - CONCLUSION: Successful GJ tube exchange as above. Scott Goode MD Abdomen Ultrasound 12/06/15 0000 Signed Impressions: Service Date/Time: Sunday, December 06, 2015 17:42 - CONCLUSION: 1. The gallbladder is unremarkable with no evidence of cholelithiasis. 2. Simple cyst in the left kidney. 3. Mild pyelocaliectasis in the right kidney. Salazar Thurman MD Upper Extremity Ultrasound 10/13/15 0000 Signed Impressions: Service Date/Time: Tuesday, October 13, 2015 09:51 - CONCLUSION: 1. No evidence of deep venous thrombosis. John Anderson MD Renal Ultrasound 10/07/15 0000 Signed Impressions: Service Date/Time: Wednesday, October 07, 2015 18:29 - CONCLUSION: 1. No acute findings. 3.6 cm left renal cyst. Putnam catheter in bladder. Amaury Ellsworth MD Tunnelled Chest Tube Removal 08/05/15 1100 Signed Impressions: Service Date/Time: Wednesday, August 05, 2015 11:00 - CONCLUSION: Uncomplicated chest tube removal. Blaine Jackson MD Chest Tube Change 07/31/15 0000 Signed Impressions: Service Date/Time: Friday, July 31, 2015 14:34 - CONCLUSION: Uncomplicated reposition of previously placed chest tube as above. Blaine Jackson MD Chest Tube Insertion 07/30/15 Signed Impressions: Service Date/Time: July 14:50 - CONCLUSION: Uncomplicated chest tube placement as above. Blaine Jackson MD Catheter Change 07/27/15 0000 Signed Impressions: Service Date/Time: Monday, July 27, 2015 14:43 - CONCLUSION: Uncomplicated gastrostomy tube exchange as above. Blaine Jackson MD Chest CT 07/11/15 Signed Impressions: Service Date/Time: Saturday, July 11, 2015 09:49 - CONCLUSION: Scattered patchy densities significantly improved from previous study. Tiny anterior right basilar pneumothorax. Right-sided chest tube in good position. Néstor Matamoros MD Head CT 06/18/151902 Signed Impressions: Service Date/Time: , June 18, 2015 19:31 - CONCLUSION: Diffuse atrophy unchanged. No acute intracranial findings. Kush Briscoe MD Abdomen/Pelvis CT 06/18/151902 Signed Impressions: Service Date/Time: June 19:36 - CONCLUSION: 1. Chronic nonspecific urinary bladder wall thickening. Bladder collapsed with Putnam catheter in place. 2. Chronic bilateral mid to lower lung zone groundglass opacity. 3. Nonobstructing left renal calculus. 4. Distended rectum. Kush Briscoe MD Objective Remarks GENERAL: Cachectic patient with limbs contracted. Eyes open. SKIN: Warm and dry. HEAD: Normocephalic. Bitemporal muscle waisting. EYES: Left erythematous and with drainage. NECK: 8.0 Distal XLT trach in place CARDIOVASCULAR: Tachycardic without murmurs, gallops, or rubs. RESPIRATORY: Coarse breath sounds. GASTROINTESTINAL: Abdomen soft, non-tender, nondistended. MUSCULOSKELETAL: Contracted limbs. Wound on lower back several centimeters wide with clean margins. Muscle waisting. Bitemporal muscle waisting. NEURO: Eyes are open, not tracking. PSYCH: Calm. Procedures 07/26- PEG replacement 07/29- right pigtail catheter placement for new pneumothorax A/P Problem List: (1) Sepsis ICD Code: A41.9 Status: Acute (2) HCAP (healthcare-associated pneumonia) ICD Code: J18.9 Status: Acute (3) Fever ICD Code: R50.9 Status: Resolved (4) Sepsis due to urinary tract infection ICD Code: A41.9 Status: Resolved (5) Chronic respiratory failure ICD Code: J96.10 Status: Chronic (6) Parkinson disease ICD Code: G20 Status: Chronic (7) UTI (urinary tract infection) ICD Code: N39.0 Status: Resolved (8) Encephalopathy ICD Code: G93.40 Status: Resolved (9) Feeding tube obstruction ICD Code: T85.598A Status: Resolved (10) Conjunctivitis ICD Code: H10.9 Status: Resolved (11) Hypotension ICD Code: I95.9 Status: Resolved Assessment and Plan 55-year-old male with persistent sepsis, pneumonia, respiratory failure. Patient is contracted and noninteractive. Poor prognosis. Appreciate palliative care following. Acute on Chronic respiratory failure, worsening, now on 100% O2 by Tpiece. patient with no meaningful recovery. Discussed with Dr Julee ennis, recommends hospice. inclines toward hospice, however daughter not decided. Discussed with hospice, awaiting call back from daughter (POA) regarding goal of care. Chronic tracheostomy. Currently on BiPAP 100% by Tpiece. S/P recurrent right pneumothorax status post pigtail catheter removal. - Suction and Levsin as needed - On prednisone tapered per pulmonology. Continue with Duo nebs 4 times a day and when necessary. - Appreciate input from palliative care medicine. Appreciate hospice input - Guarded prognosis, patient is deteriorating , discussed with Dr Walker palliative care, patient is full NO CODE. DO NOT MOVE PATIENT TO ICU, no intubation and no pressors. Discussed with loli Jaimes, recommends not moving the patient to the unit. Patient appears comfortable. He ias also hypotensive, patient received IVF/albumin, however BNP is elevated and makes his breathing worse, and marko hold at this time. Metabolic Encephalopathy, worsening. Parkinson's disease underlying. Appear to have permanent damage. Sometimes able to minimally respond to commands, nonverbally. - Continue Sinemet. - Ativan as needed. New sepsis sources: Tracheobronchitis and ESBL Kleb pneumo UTI MDR PSAE tracheobronchitis. ESBL MDR Kleb pneumo Cath associated UTI. h/o Recurrent aspiration tube feed related in past. Heena Cath associated UTI. - DC antibiotics per infectious disease and monitor. - Repeat CXR improving. Needs frequent suctioning. Discussed with the nurse. - He is dessating at times. He is using BipAP at night and during the day at times when he is dessating. Wean off BiPAP during the day as tolerated. Urinary candidiasis: Start fluconazole urine is clearing up, better urine OP. Hypotension. Received bolus of 500cc. Start IVF. BP better controlled today. Monitor VS. BP is better controlled. However the patient with elevated BNP as well. 04/21 BP 80/51 , however the patient also with elevated BNP in 900. On BiPAP . Will give one bolus 500 NS. Will give albumin IV x 1 time and 20 IV lasix. Monitor VS Malnutrition/protein calorie - moderate to severe. Patient with BMI 14 , muscle waisting, bitemporal waisting. Status post PEG. Tolerating tube feeds. Tube clogged 04/08. IR replaced tube. - Current Colace/senna for bowel regimen. - continue PPI. - Continue tube feed. - Consult final inspector paper Malfunctioning PEG again 04/12. Resolved with flushing the tube. Bilateral lower extremity contractures/ Unstageable sacral ulcer. Wound care consult appreciated. - Continue wound care. - Continue physical therapy to help with contractures. - turn q 2 hours - Agree with palliative care medicine, he cannot communicate his pain. Continue with schedule Lortab every 6 hours. GI prophylaxis: PPI. Stool softener PRN constipation. DVT PPx: Lovenox Discharge Planning Difficult discharge, no payor source. CM consult for DC Discussed with the nurse, pulangie, palliative care, Dr Pickard, Hospice care GUARDED PROGNOSIS. NO CODE. DO NOT MOVE PATIENT TO ICU, no intubation and no pressors. Problem Qualifiers (1) Fever: Qualified Code: R50.9 - Fever, unspecified fever cause (2) Chronic respiratory failure: Qualified Code: J96.10 - Chronic respiratory failure, unspecified whether with hypoxia or hypercapnia (3) UTI (urinary tract infection): Qualified Code: N30.00 - Acute cystitis without hematuria (4) Conjunctivitis: Qualified Code: H10.9 - Conjunctivitis of left eye, unspecified conjunctivitis type Roz Pham MD Apr 22, 2016 18:09
--- NOTE | 2016-04-22 19:17 | HHI.HCPN ---
Reason for visit a. To assist with evaluation and management of symptoms including: pain, malnutrition, dyspnea. b. To assist medical decision maker(s) with: better understanding of current medical conditions; weighing benefits/burdens of medical treatment options; making medical treatment decisions. . Subjective/Interval History Patient has declined today with increasing 02 needs, hypotension, and decreased responsiveness. Urine output is falling. Axillary temp recorded as 90.6 and patient now in warmer. Patient has been given additional fluid. Given his prior patterns, he has probably aspirated again and is septic. Patient is now DNR per conversation of 10/13/15 between daughter Radha (health care proxy) and BETTY Rosenthal. Nursing pain level scores have ranged 0-5 over last two days. Review of MAR shows: * No use of IV morphine since 04/16/16 * He continues with scheduled [place] 5-325 via tube q 6 hours ATC * No use of benzos. Hospice has been consulted once again today and hospice services were offered but declined by daughter earlier today. At time of my visit, breathing is shallow and erratic. Patient has eyes open but does not track. He does not appear uncomfortable at this time. . Family/friend interactions Hospice nurse reported speaking to Radha today who declined hospice care. . Advance Directives Living Will: Never completed Health Care Surrogate: Copy in medical record Durable Power of Tutoring Clinician: Never completed Advance Directive Specifics Date completed: Patient visited Scott Mack, Tutoring Clinician in March and again in November 2014. The patient was encouraged to complete Advance directive documents but never did them. Dr. Pickard personally called Mr. Mack ([phone]) to check for advance directives. Health Care Surrogate(s): The patient completed a health care surrogate document dated 09/02/14 desigating his friend Bola Nolasco as surrogate. Mr. Nolasco was not aware of this and has declined serving in that capacity. The patient has an adult daughter -- Radha Foreman who is willing to serve as health care proxy decision maker. Patient's mother, Teresa is aware. Significant change in goals: Daughter- Radha (Health care proxy) elected NO CODE status on 10/13/15. . Objective Vital Signs Date Time Temp Pulse Resp B/P Pulse Ox O2 Delivery O2 Flow Rate FiO2 04/22/16 18:16 BiPAP 100 3/17/17 12:12 90.6 57 10 81/46 100 04/22/16 10:41 12 04/22/16 08:35 76 22 95/53 95 04/22/16 08:30 70 50 04/22/16 08:30 91 100 04/22/16 08:00 96 T-piece 6.00 50 04/22/16 07:00 98.9 71 22 95/53 95 04/22/16 05:30 98.8 71 24 111/69 96 04/22/16 02:33 95 50 04/22/16 00:15 98.1 75 23 115/58 99 04/21/16 21:10 95 50 04/21/16 20:45 97.9 73 24 111/59 96 Intake & Output 04/22/16 04/22/16 07:00 19:00 Intake Total 0 ml Output Total 300 ml 50 ml Balance -300 ml -50 ml Intake Oral 0 ml Output Urine Total 300 ml 50 ml # Bowel Movements 0 . Physical Exam CONSTITUTIONAL/GENERAL: This is a thin, pale, contracted, chronically ill appearing male. On BiPAP to trach. TUBES/LINES/DRAINS: Trach, peripheral IV, valdez cath, G-J tube, SKIN: Pale. Sacral wound not examined today. Not diaphoretic. NECK: Tracheostomy to BiPAP. CARDIOVASCULAR: Regular rate and rhythm without murmurs, gallops, or rubs. No JVD. RESPIRATORY/CHEST: Shallow irregular breathing. Poor air movement bilaterally. Faint ronchi. No wheezing. GASTROINTESTINAL: Abdomen soft, non-tender, nondistended. GENITOURINARY: Without palpable bladder distension. catheter in place. MUSCULOSKELETAL: Contractures of bilateral upper and right lower extremities appear more rigid. No mottling. NEUROLOGICAL: Eyes open. Does not track. Does not follow commands. Not attempting to mouth words. PSYCHIATRIC: Unable to assess due to level of responsiveness. . Diagnostic Tests Laboratory Laboratory Tests Test 04/20/16 04/21/16 04/21/16 04/22/16 22:53 11:19 20:55 05:43 White Blood Count 5.3 TH/MM3 4.1 TH/MM3 4.1 TH/MM3 (4.0-11.0) (4.0-11.0) (4.0-11.0) Red Blood Count 3.00 MIL/MM3 2.88 MIL/MM3 2.93 MIL/MM3 (4.50-5.90) (4.50-5.90) (4.50-5.90) Hemoglobin 8.3 GM/DL 7.9 GM/DL 8.0 GM/DL (13.0-17.0) (13.0-17.0) (13.0-17.0) Hematocrit 26.9 % 25.5 % 26.1 % (39.0-51.0) (39.0-51.0) (39.0-51.0) Mean Corpuscular Volume 89.6 FL 88.6 FL 89.1 FL (80.0-100.0) (80.0-100.0) (80.0-100.0) Mean Corpuscular Hemoglobin 27.7 PG 27.3 PG 27.3 PG (27.0-34.0) (27.0-34.0) (27.0-34.0) Mean Corpuscular Hemoglobin 30.9 % 30.8 % 30.6 % Concent (32.0-36.0) (32.0-36.0) (32.0-36.0) Red Cell Distribution Width 16.6 % 15.9 % 16.5 % (11.6-17.2) (11.6-17.2) (11.6-17.2) Platelet Count 150 TH/MM3 115 TH/MM3 120 TH/MM3 (150-450) (150-450) (150-450) Mean Platelet Volume 9.9 FL 10.3 FL 9.6 FL (7.0-11.0) (7.0-11.0) (7.0-11.0) Neutrophils (%) (Auto) 74.1 % 69.5 % (16.0-70.0) (16.0-70.0) Lymphocytes (%) (Auto) 11.6 % 14.5 % (9.0-44.0) (9.0-44.0) Monocytes (%) (Auto) 11.2 % 11.6 % (0.0-8.0) (0.0-8.0) Eosinophils (%) (Auto) 2.6 % (0.0-4.0) 3.8 % (0.0-4.0) Basophils (%) (Auto) 0.5 % (0.0-2.0) 0.6 % (0.0-2.0) Neutrophils # (Auto) 3.9 TH/MM3 2.9 TH/MM3 (1.8-7.7) (1.8-7.7) Lymphocytes # (Auto) 0.6 TH/MM3 0.6 TH/MM3 (1.0-4.8) (1.0-4.8) Monocytes # (Auto) 0.6 TH/MM3 0.5 TH/MM3 (0-0.9) (0-0.9) Eosinophils # (Auto) 0.1 TH/MM3 0.2 TH/MM3 (0-0.4) (0-0.4) Basophils # (Auto) 0.0 TH/MM3 0.0 TH/MM3 (0-0.2) (0-0.2) CBC Comment DIFF FINAL DIFF FINAL Differential Comment Sodium Level 140 MEQ/L 141 MEQ/L 140 MEQ/L (136-145) (136-145) (136-145) Potassium Level 5.2 MEQ/L 5.1 MEQ/L 4.9 MEQ/L (3.5-5.1) (3.5-5.1) (3.5-5.1) Chloride Level 101 MEQ/L 100 MEQ/L 95 MEQ/L (98-107) (98-107) (98-107) Carbon Dioxide Level 38.4 MEQ/L 39.2 MEQ/L 43.4 MEQ/L (21.0-32.0) (21.0-32.0) (21.0-32.0) Anion Gap 1 MEQ/L (5-15) 2 MEQ/L (5-15) 2 MEQ/L (5-15) Blood Urea Nitrogen 18 MG/DL (7-18) 19 MG/DL (7-18) 22 MG/DL (7-18) Creatinine 0.31 MG/DL 0.28 MG/DL 0.34 MG/DL (0.60-1.30) (0.60-1.30) (0.60-1.30) Estimat Glomerular Filtration 302 ML/MIN 340 ML/MIN 271 ML/MIN Rate (>89) (>89) (>89) Random Glucose 109 MG/DL 124 MG/DL 123 MG/DL (74-106) (74-106) (74-106) Calcium Level 8.2 MG/DL 8.2 MG/DL 8.3 MG/DL (8.5-10.1) (8.5-10.1) (8.5-10.1) B-Type Natriuretic Peptide 958 PG/ML (0-100) Total Bilirubin 0.2 MG/DL (0.2-1.0) Aspartate Amino Transf 16 U/L (15-37) (AST/SGOT) Alanine Aminotransferase 8 U/L (12-78) (ALT/SGPT) Alkaline Phosphatase 85 U/L (45-117) Total Protein 5.3 GM/DL (6.4-8.2) Albumin 2.3 GM/DL (3.4-5.0) . Result Diagram: 04/22/16 0543 04/22/1643 Imaging Last Impressions Chest X-Ray 04/20/16 0000 Signed Impressions: Service Date/Time: Wednesday, April 20, 2016 21:53 - CONCLUSION: Left lower lobe consolidation. Jeramie Manjarrez MD Abdomen X-Ray 04/16/16 0000 Signed Impressions: Service Date/Time: Saturday, April 16, 2016 22:52 - CONCLUSION: Intraluminal location of the jejunostomy tube is confirmed. Tai Jaquez MD PICC Line Insertion 04/14/16 0000 Signed Impressions: Service Date/Time: April 16:16 - CONCLUSION: 1. Uncomplicated central venous Power PICC line placement. 2. The PICC line can be used immediately. John Anderson MD Tube Change 04/08/16 0000 Signed Impressions: Service Date/Time: Friday, April 08, 2016 14:38 - CONCLUSION: Uncomplicated gastrojejunostomy tube exchange as above. John Anderson MD Tube Check 02/12/16 0000 Signed Impressions: Service Date/Time: Friday, February 12, 2016 16:08 - CONCLUSION: Uncomplicated tube injection as above. Blaine Jackson MD Gastrostomy Tube Change 01/15/16 0000 Signed Impressions: Service Date/Time: Friday, January 15, 2016 12:28 - CONCLUSION: Successful GJ tube exchange as above. Scott Goode MD Abdomen Ultrasound 12/06/15 0000 Signed Impressions: Service Date/Time: Sunday, December 06, 2015 17:42 - CONCLUSION: 1. The gallbladder is unremarkable with no evidence of cholelithiasis. 2. Simple cyst in the left kidney. 3. Mild pyelocaliectasis in the right kidney. Salazar Thurman MD Upper Extremity Ultrasound 10/13/15 0000 Signed Impressions: Service Date/Time: Tuesday, October 13, 2015 09:51 - CONCLUSION: 1. No evidence of deep venous thrombosis. John Anderson MD Renal Ultrasound 10/07/15 0000 Signed Impressions: Service Date/Time: Wednesday, October 07, 2015 18:29 - CONCLUSION: 1. No acute findings. 3.6 cm left renal cyst. Valdez catheter in bladder. Amaury Ellsworth MD Tunnelled Chest Tube Removal 08/05/15 1100 Signed Impressions: Service Date/Time: Wednesday, August 05, 2015 11:00 - CONCLUSION: Uncomplicated chest tube removal. Blaine Jackson MD Chest Tube Change 07/31/15 0000 Signed Impressions: Service Date/Time: Friday, July 31, 2015 14:34 - CONCLUSION: Uncomplicated reposition of previously placed chest tube as above. Blaine Jackson MD Chest Tube Insertion 07/30/15 0000 Signed Impressions: Service Date/Time: July 14:50 - CONCLUSION: Uncomplicated chest tube placement as above. Blaine Jackson MD Catheter Change 07/27/15 0000 Signed Impressions: Service Date/Time: Monday, July 27, 2015 14:43 - CONCLUSION: Uncomplicated gastrostomy tube exchange as above. Blaine Jackson MD Chest CT 07/11/15 0000 Signed Impressions: Service Date/Time: Saturday, July 11, 2015 09:49 - CONCLUSION: Scattered patchy densities significantly improved from previous study. Tiny anterior right basilar pneumothorax. Right-sided chest tube in good position. Néstor Matamoros MD Head CT 06/18/151902 Signed Impressions: Service Date/Time: June 19:31 - CONCLUSION: Diffuse atrophy unchanged. No acute intracranial findings. Kush Briscoe MD Abdomen/Pelvis CT 5/12/16 1903 Signed Impressions: Service Date/Time: June 19:36 - CONCLUSION: 1. Chronic nonspecific urinary bladder wall thickening. Bladder collapsed with Valdez catheter in place. 2. Chronic bilateral mid to lower lung zone groundglass opacity. 3. Nonobstructing left renal calculus. 4. Distended rectum. Kush Briscoe MD . Procedures * 03/17/16 - GJ tube exchange. * 02/27/16 - GJ tube exchange. * 02/03/16 GJ tube exchange * 01/27/16 - GJ tube exchange * 08/05/15 - chest tube removal * 07/31/15 chest tube change x 2 * 07/17/15 - Chest tube removal * 07/07/15 - Chest tube placement on right * mechanical ventilation . Assessment and Plan Disease Oriented Problem List: (1) Acute respiratory failure Comment: 10/13/15 - Halicat for hypotension and tube feeding coming from trach. Daughter has since elected no mech vent, no chest compressions, shock or ACLS. . (2) Chronic respiratory failure (3) Pneumonia Comment: recurrent aspiration. . (4) UTI (urinary tract infection) Comment: . (5) Parkinson disease Comment: End stage (6) Moderate malnutrition Symptom Scale: (1) Pain 0-10 Scale: Unable to quantify (Pt unable to quantify, nurse reports level 1) Comment: Sources of pain might include wound, prolonged bedbound status, contractures, restraints, valdez, vascular access catheters. Appears comfortable on current regimen. ,l (2) Dyspnea 0-10 Scale: Unable to quantify Comment: On BiPAP. Ongoing high risk of recurrent aspiration pneumonia currently being treated. . . (3) Malnutrition 0-10 Scale: Unable to quantify Comment: On tube feeding. . (4) Encephalopathy 0-10 Scale: Unable to quantify Comment: Remains minimally responsive. . 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 Severe dementia. Daughter, mother, and brother are involved. Spiritual: Voodoo. Has been a member for the [employer] [facility] [employer] and members have provided both community support and spiritual support in the past. Legal: No advance directives. Daughter (Radha Foreman) is legal proxy and lives 4 hours away. She can be quite difficult to contact by phone. Ethical issues impacting care: None. . Important Contacts * Radha Foreman (daughter and proxy) [phone] * Teresa Perea (mother -- lives in [place]) [phone] . Prognosis Patient has end stage Parkinson's with end stage dementia. He [facility] a [facility] [place] [facility] and has required multiple hospitalizations for sepsis. He is a chronic trach/PEG tube patient with contractures and skin breakdown. He has been hospitalized here over 309 days on this admission and moves back and forth from floor to ICU for recurrent pneumonia (probably from aspirations) and sepsis. Should family continue to want aggressive care, he will continue to go back and forth from facility to hospital until such time that we are no longer able to overcome the sepsis. Patient is hospice eligible whenever family is ready to transition to "comfort measures only." . Code Status: No Code (No cardiac resuscitation, shock, ACLS or mech vent. ) Plan * Decision making: Patient is incapacitated and will not regain capacity. There is no designated health care surrogate. Daughter, Radha Foreman, is legal proxy under [place] statutes but can be hard to contact at times. * NO CODE - No cardiac resuscitation, shock, ACLS or mech vent, No Pressors. * Pain: Sources of pain are unclear as patient in non communicative, but would include prolonged bedbound status; tubes and lines; worsening contractures; wound; etc. Patient is now on scheduled [place] 5-325 and has IV morphine available prn. * Dyspnea: Recurrent aspirations pneumonias. Currently, appears to be having another sepsis event most likely from another aspiration. Currently on levofloxacin and fluconazole. On BiPAP to trach. * Malnutrition: Patient is cachectic despite tube feedings. * As health care proxy declines hospice care and patient is NO CODE, we can only continue with current plan of ongoing aggressive care short of chest compressions, shock, pressors, ACLS drugs, and mechanical ventilation here on the floor. Patient appears unlikely to survive this event, but he has appeared this way before and managed to improve. Current comfort meds appear to be adequate. No further recommendations at this time. * Case discussed with Dr. Pham . We addressed palliative care understanding of current goals of medical treatment. * Case discussed with hospice nurse and communication with Radha (proxy) . . Time Spent Total Floor Time (mins): 40 (Total time included chart review, patient exam, case discussion with Dr. Pham, discussion with hospice nurse, and documentation time. ) Face to Face Time (mins): 8 >50% Counseling/Coord of Care: Yes Attestation To help prompt me to consider important information that might be impacting today's encounter and assessment, information from prior notes written by myself or my colleagues may have been "brought forward" into today's note. My signature on this note, however, is an attestation that I personally performed the exam, history, and/or decision-making noted today, and, unless otherwise indicated, the interactions with patient, family, and staff as well as the review of records all occurred today. I also attest that the listed assessment and stated plan reflect my best clinical judgment today based on the combination of historical information, prior notes, and today's exam/ interactions. When time spent is documented, it refers only to time spent today by the signer, or if indicated, combined time spent today by collaborating physician/nurse practitioner. . Pascual Pickard MD Apr 22, 2016 19:17
[2016-04-22] MEDS: ENOXAPARIN SODIUM 40 MG/0.4 ML SYRINGE SQ SCH (21:53)
[2016-04-23] VITALS: BP 118/75; PULSE 76; RESP 18; TEMP 98.1; O2SAT 98
[2016-04-23 02:28] VITALS: O2SAT 93
[2016-04-23] MEDS: ACETAMINOPHEN/HYDROcodone 325 MG/5 MG TAB PO SCH (04:41)
[2016-04-23] MEDS: FREE WATER G-TUBE SCH (04:42)
[2016-04-23] MEDS: BETHANECHOL CHL 10 MG TAB PO SCH (04:42)
[2016-04-23] MEDS ORDERED: SODIUM CHLORID 0.9% 500 ML INJ 500 ML IV ONE (07:30)
[2016-04-23 08:15] VITALS: O2SAT 100
--- NOTE | 2016-04-23 10:48 | DEATH SUM ---
Pronouncement Date Pronounced : Apr 23, 2016 Time Of : 10:13 Pronouncement Called to pronounce of patient. Identified patient as John Foreman with wrist band MR# [id number]. Patient with no cardiac activity in 2 separate leads and no palpable/auscible cardiac activity. Patient with no spontaneous respirations, no corneal reflex or response to painful stimuli. Pupils fixed and dilated. Cardio respiratory arrest Preliminary Cause of : Respiratory arrest Roz Pham MD Apr 23, 2016 10:48
--- NOTE | 2016-04-23 10:51 | HHI.DS ---
Summary Note Date of : Apr 23, 2016 Time Of : 10:13 Admission Date June 18, 2015 at 19:08 Admitting Diagnosis severe sepsis Diagnosis at Time of : (1) due to cardiac arrest ICD Code: I46.9 Diagnosis: Principal (2) Sepsis ICD Code: A41.9 Diagnosis: Principal (3) HCAP (healthcare-associated pneumonia) ICD Code: J18.9 Diagnosis: Principal (4) Fever ICD Code: R50.9 Diagnosis: Secondary (5) Sepsis due to urinary tract infection ICD Code: A41.9 Diagnosis: Secondary (6) Chronic respiratory failure ICD Code: J96.10 Diagnosis: Secondary (7) Parkinson disease ICD Code: G20 Diagnosis: Secondary (8) UTI (urinary tract infection) ICD Code: N39.0 Diagnosis: Secondary (9) Encephalopathy ICD Code: G93.40 Diagnosis: Secondary (10) Feeding tube obstruction ICD Code: T85.598A Diagnosis: Secondary (11) Conjunctivitis ICD Code: H10.9 Diagnosis: Secondary (12) Hypotension ICD Code: I95.9 Diagnosis: Secondary Procedures 07/26- PEG replacement 07/29- right pigtail catheter placement for new pneumothorax Brief History pt was seen and examined in ED and in ICU HPI Pt is a 54 yr man with multiple medial problems including Parkinson's disease, advanced dementia, hyponatremia, anxiety, pneumonia, GERD, cognitive disorder, and multidrug resistant UTI- ESBL02/19/15 , who resides in a group home. Pt by report was found by staff in group home to be less alert and having respiratory difficultly and fevers. Pt was brought to ED adn placed on ventilator. His workup was inclusive of labs, chest xray and ct head and abd/pelvis. WBC 16.4, +UTI, lactic acid 4, troponin ,0.02, BUN/ cre 18/ 0.76. CT head 06/18/15: diffuse atrophy unchanged. No acute intracranial findings ct abd/ pelvis with IV contrast: 06/18/15 Conclusion: 1. Chronic nonspecific urinary bladder wall thickening. Bladder collapsed with Putnam catheter in place. 2.Chronic bilateral mid to lower zone groundglass opacity. 3. Nonobstructing left renal calculus. 4. Distended rectum Pt admitted and fluid and abx ordered CBC/BMP: 04/22/16 0543 04/22/16 0543 Significant Findings Laboratory Tests Test 04/20/16 04/21/16 04/21/16 04/22/16 22:53 11:19 20:55 05:43 Red Blood Count 3.00 MIL/MM3 2.88 MIL/MM3 2.93 MIL/MM3 (4.50-5.90) (4.50-5.90) (4.50-5.90) Hemoglobin 8.3 GM/DL 7.9 GM/DL 8.0 GM/DL (13.0-17.0) (13.0-17.0) (13.0-17.0) Hematocrit 26.9 % 25.5 % 26.1 % (39.0-51.0) (39.0-51.0) (39.0-51.0) Mean Corpuscular Hemoglobin 30.9 % 30.8 % 30.6 % Concent (32.0-36.0) (32.0-36.0) (32.0-36.0) Neutrophils (%) (Auto) 74.1 % (16.0-70.0) Monocytes (%) (Auto) 11.2 % 11.6 % (0.0-8.0) (0.0-8.0) Lymphocytes # (Auto) 0.6 TH/MM3 0.6 TH/MM3 (1.0-4.8) (1.0-4.8) Potassium Level 5.2 MEQ/L (3.5-5.1) Carbon Dioxide Level 38.4 MEQ/L 39.2 MEQ/L 43.4 MEQ/L (21.0-32.0) (21.0-32.0) (21.0-32.0) Anion Gap 1 MEQ/L (5-15) 2 MEQ/L (5-15) 2 MEQ/L (5-15) Creatinine 0.31 MG/DL 0.28 MG/DL 0.34 MG/DL (0.60-1.30) (0.60-1.30) (0.60-1.30) Random Glucose 109 MG/DL 124 MG/DL 123 MG/DL (74-106) (74-106) (74-106) Calcium Level 8.2 MG/DL 8.2 MG/DL 8.3 MG/DL (8.5-10.1) (8.5-10.1) (8.5-10.1) B-Type Natriuretic Peptide 958 PG/ML (0-100) Blood Urea Nitrogen 19 MG/DL (7-18) 22 MG/DL (7-18) Alanine Aminotransferase 8 U/L (12-78) (ALT/SGPT) Total Protein 5.3 GM/DL (6.4-8.2) Albumin 2.3 GM/DL (3.4-5.0) Platelet Count 115 TH/MM3 120 TH/MM3 (150-450) (150-450) Chloride Level 95 MEQ/L (98-107) Imaging Last Impressions Chest X-Ray 12/02/15 0600 Signed Impressions: Service Date/Time: Wednesday, December 02, 2015 05:24 - CONCLUSION: Stable chest x-ray with bibasilar airspace consolidation, left greater than right. A small left effusion is suspected as well. Erlin Barajas MD Abdomen X-Ray 11/26/15 0000 Signed Impressions: Service Date/Time: November 12:34 - CONCLUSION: 1. Nonobstructive bowel gas pattern. 2. Stable position of gastrostomy tube. Multiple surgical screws secure the proximal left femur. 3. No obvious pneumoperitoneum on the single projection provided. Scott Goode MD Upper Extremity Ultrasound 10/13/15 0000 Signed Impressions: Service Date/Time: Tuesday, October 13, 2015 09:51 - CONCLUSION: 1. No evidence of deep venous thrombosis. John Anderson MD Renal Ultrasound 10/07/15 0000 Signed Impressions: Service Date/Time: Wednesday, October 07, 2015 18:29 - CONCLUSION: 1. No acute findings. 3.6 cm left renal cyst. Putnam catheter in bladder. Amaury Ellsworth MD Tunnelled Chest Tube Removal 08/05/15 1100 Signed Impressions: Service Date/Time: Wednesday, August 05, 2015 11:00 - CONCLUSION: Uncomplicated chest tube removal. Blaine Jackson MD Chest Tube Change 07/31/15 0000 Signed Impressions: Service Date/Time: Friday, July 31, 2015 14:34 - CONCLUSION: Uncomplicated reposition of previously placed chest tube as above. Blaine Jackson MD Chest Tube Insertion 07/30/15 0000 Signed Impressions: Service Date/Time: July 14:50 - CONCLUSION: Uncomplicated chest tube placement as above. Blaine Jackson MD Catheter Change 07/27/15 Signed Impressions: Service Date/Time: Monday, July 27, 2015 14:43 - CONCLUSION: Uncomplicated gastrostomy tube exchange as above. Blaine Jackson MD Chest CT 07/11/15 0000 Signed Impressions: Service Date/Time: Saturday, July 11, 2015 09:49 - CONCLUSION: Scattered patchy densities significantly improved from previous study. Tiny anterior right basilar pneumothorax. Right-sided chest tube in good position. Néstor Matamoros MD Head CT 06/18/151902 Signed Impressions: Service Date/Time: June 19:31 - CONCLUSION: Diffuse atrophy unchanged. No acute intracranial findings. Kush Briscoe MD Abdomen/Pelvis CT 06/18/151902 Signed Impressions: Service Date/Time: , June 18, 2015 19:36 - CONCLUSION: 1. Chronic nonspecific urinary bladder wall thickening. Bladder collapsed with Putnam catheter in place. 2. Chronic bilateral mid to lower lung zone groundglass opacity. 3. Nonobstructing left renal calculus. 4. Distended rectum. Kush Briscoe MD Hospital Course 55-year-old male with persistent sepsis, pneumonia, respiratory failure. Patient is contracted and noninteractive. Poor prognosis. Appreciate palliative care and consultants input. Patient was admitted on 06/18/15 with respiratory failure, sepsis, had trach, chronic respiratory failure, patient contracted, will have eye opened at times, did not track. Patient was intubated multiple times was back and forth multiple time to ICU, treated for infections. He was on T piece and BiPAP at [facility],. He was stared to deteriorate requiring more BiPAP during the day, his BP was also noted low, received IVF as well as albumin. Patient continue to deteriorated requiring 100 O2, guarded prognosis, family notified. Patient demise 04/23/16 at 10: 13 AM. Family and consultants. notified. - 04/22/16Guarded prognosis, patient is deteriorating , discussed with Dr Walker palliative care, patient is full NO CODE. DO NOT MOVE PATIENT TO ICU , no intubation and no pressors. Discussed with loli Jaimes, recommends not moving the patient to the unit. Patient appears comfortable. He is also hypotensive, patient received IVF/albumin, however BNP is elevated and makes his breathing worse. inclines towards hospice care, daughter said will think about. Patient note - 04/23/16 patient noted with low BP, desatting while on 100% O2, noted bradycardia and flat line 10: 13. Physical exam with rigor mortis, nonresponsive to obnoxious stimuli, fixed and dilated pupils, no corneal reflex , patient . Family and consultants were notified Acute on Chronic respiratory failure, worsening, now on 100% O2 by Tpiece. patient with no meaningful recovery. Discussed with Dr Julee ennis, recommends hospice. inclines toward hospice, however daughter not decided. Discussed with hospice, awaiting call back from daughter (POA) regarding goal of care. Chronic tracheostomy. Currently on BiPAP 100% by Tpiece. S/P recurrent right pneumothorax status post pigtail catheter removal. - Suction and Levsin as needed - On prednisone tapered per pulmonology. Continue with Duo nebs 4 times a day and when necessary. - Appreciate input from palliative care medicine. Appreciate hospice input Metabolic Encephalopathy, worsening. Parkinson's disease underlying. Appear to have permanent damage. Sometimes able to minimally respond to commands, nonverbally. - Continue Sinemet. - Ativan as needed. New sepsis sources: Tracheobronchitis and ESBL Kleb pneumo UTI MDR PSAE tracheobronchitis. ESBL MDR Kleb pneumo Cath associated UTI. h/o Recurrent aspiration tube feed related in past. Heena Cath associated UTI. - DC antibiotics per infectious disease and monitor. - Repeat CXR improving. Needs frequent suctioning. Discussed with the nurse. - He is dessating at times. He is using BipAP at night and during the day at times when he is dessating. Wean off BiPAP during the day as tolerated. Urinary candidiasis: Start fluconazole urine is clearing up, better urine OP. Hypotension. Received bolus of 500cc. Start IVF. BP better controlled today. Monitor VS. BP is better controlled. However the patient with elevated BNP as well. 04/21 BP 80/51 , however the patient also with elevated BNP in 900. On BiPAP . Will give one bolus 500 NS. Will give albumin IV x 1 time and 20 IV lasix. Monitor VS Malnutrition/protein calorie - moderate to severe. Patient with BMI 14 , muscle waisting, bitemporal waisting. Status post PEG. Tolerating tube feeds. Tube clogged 04/08. IR replaced tube. - Current Colace/senna for bowel regimen. - continue PPI. - Continue tube feed. - Consult co pilot Malfunctioning PEG again 04/12. Resolved with flushing the tube. Bilateral lower extremity contractures/ Unstageable sacral ulcer. Wound care consult appreciated. - Continue wound care. - Continue physical therapy to help with contractures. - turn q 2 hours - Agree with palliative care medicine, he cannot communicate his pain. Continue with schedule Lortab every 6 hours. GI prophylaxis: PPI. Stool softener PRN constipation. DVT PPx: Lovenox Discharge Planning Difficult discharge, no payor source. CM consult for DC Discussed with the nurse, pulm, palliative care, Dr Pickard, Hospice care on pronunciation 04/23/16 at 10:13 AM Roz Pham MD Apr 23, 2016 10:51
== END 2016-04-23 13:39 | disposition expired | DRG 698 ==
LOC: NEPC 17:11 → NEDA 19:08 → HIME 06-19 01:10 → N04A 09-03 17:49 → HIMN 09-20 16:20 → N04A 10-08 10:53 → HIME 10-12 17:10 → HIMN 10-22 21:15 → N04A 11-25 00:46 → HIMN 11-28 06:35 → N05A 01-07 17:14
PROVIDERS: ADMIT Hospitalist; ATTEND Hospitalist
PROC: 0T2BX0Z Change Drainage Device in Bladder, External Approach (ICD-10-PCS; principal; 2015-06-18)
PROC: 5A1955Z Respiratory Ventilation, Greater than 96 Consecutive Hours (ICD-10-PCS; 2015-06-18)
PROC: 0W9930Z Drainage of Right Pleural Cavity with Drainage Device, Percutaneous Approach (ICD-10-PCS; 2015-07-07)
PROC: 0BPQ30Z Removal of Drainage Device from Pleura, Percutaneous Approach (ICD-10-PCS; 2015-07-17)
PROC: 0D20XUZ Change Feeding Device in Upper Intestinal Tract, External Approach (ICD-10-PCS; 2015-07-27)
PROC: 0W9930Z Drainage of Right Pleural Cavity with Drainage Device, Percutaneous Approach (ICD-10-PCS; 2015-07-30)
PROC: 0W9930Z Drainage of Right Pleural Cavity with Drainage Device, Percutaneous Approach (ICD-10-PCS; 2015-07-31)
PROC: 0B21XFZ Change Tracheostomy Device in Trachea, External Approach (ICD-10-PCS; 2015-08-16)
PROC: 05H533Z Insertion of Infusion Device into Right Subclavian Vein, Percutaneous Approach (ICD-10-PCS; 2015-11-28)
PROC: 0DHA3UZ Insertion of Feeding Device into Jejunum, Percutaneous Approach (ICD-10-PCS; 2016-01-15)
PROC: 0D2DXUZ Change Feeding Device in Lower Intestinal Tract, External Approach (ICD-10-PCS; 2016-01-27)
PROC: 0D2DXUZ Change Feeding Device in Lower Intestinal Tract, External Approach (ICD-10-PCS; 2016-02-03)
PROC: 3C1ZX8Z Irrigation of Indwelling Device using Irrigating Substance, External Approach (ICD-10-PCS; 2016-02-12)
PROC: 0DHA3UZ Insertion of Feeding Device into Jejunum, Percutaneous Approach (ICD-10-PCS; 2016-02-26)
PROC: 0D2DXUZ Change Feeding Device in Lower Intestinal Tract, External Approach (ICD-10-PCS; 2016-04-08)
PROC: 02HV33Z Insertion of Infusion Device into Superior Vena Cava, Percutaneous Approach (ICD-10-PCS; 2016-04-14)
DX: T83.511A Infection and inflammatory reaction due to indwelling urethral catheter, initial encounter (principal); J96.21 Acute and chronic respiratory failure with hypoxia; R65.20 Severe sepsis without septic shock; R65.21 Severe sepsis with septic shock; J69.0 Pneumonitis due to inhalation of food and vomit; G92 Toxic encephalopathy; A41.9 Sepsis, unspecified organism; E43 Unspecified severe protein-calorie malnutrition; J15.0 Pneumonia due to Klebsiella pneumoniae; J15.1 Pneumonia due to Pseudomonas; K29.61 Other gastritis with bleeding; G62.81 Critical illness polyneuropathy; R64 Cachexia; B37.49 Other urogenital candidiasis; Z68.1 Body mass index [BMI] 19.9 or less, adult; R47.01 Aphasia; E87.0 Hyperosmolality and hypernatremia; E87.1 Hypo-osmolality and hyponatremia; K94.23 Gastrostomy malfunction; Z99.11 Dependence on respirator [ventilator] status; A04.7 Enterocolitis due to Clostridium difficile; E87.2 Acidosis; J93.9 Pneumothorax, unspecified; K94.13 Enterostomy malfunction; G72.81 Critical illness myopathy; I50.32 Chronic diastolic (congestive) heart failure; L89.152 Pressure ulcer of sacral region, stage 2; N39.0 Urinary tract infection, site not specified; K21.9 Gastro-esophageal reflux disease without esophagitis; H10.9 Unspecified conjunctivitis; B96.1 Klebsiella pneumoniae [K. pneumoniae] as the cause of diseases classified elsewhere; Z16.24 Resistance to multiple antibiotics; Y84.6 Urinary catheterization as the cause of abnormal reaction of the patient, or of later complication, without mention of misadventure at the time of the procedure; G20 Parkinson's disease; F02.80 Dementia in other diseases classified elsewhere, unspecified severity, without behavioral disturbance, psychotic disturbance, mood disturbance, and anxiety; Y95 Nosocomial condition; Z51.5 Encounter for palliative care; Z66 Do not resuscitate; Z16.12 Extended spectrum beta lactamase (ESBL) resistance; D64.9 Anemia, unspecified; E87.6 Hypokalemia; J20.9 Acute bronchitis, unspecified; F41.9 Anxiety disorder, unspecified; I25.10 Atherosclerotic heart disease of native coronary artery without angina pectoris; I10 Essential (primary) hypertension; R13.10 Dysphagia, unspecified; N20.0 Calculus of kidney; I95.1 Orthostatic hypotension; Z74.01 Bed confinement status; E78.5 Hyperlipidemia, unspecified; K20.8 Other esophagitis; K64.8 Other hemorrhoids; T38.0X5A Adverse effect of glucocorticoids and synthetic analogues, initial encounter; E11.9 Type 2 diabetes mellitus without complications; N32.89 Other specified disorders of bladder; Z87.440 Personal history of urinary (tract) infections; Z22.322 Carrier or suspected carrier of Methicillin resistant Staphylococcus aureus; Z79.4 Long term (current) use of insulin
CPT/HCPCS: 32551; 32557; 36556; 36561; 36569; 36600; 49446; 49450; 49452; 49465; 70450; 71010; 71020; 71250; 74000; 74020; 74177; 75984; 76700; 76775; 76937; 77001; 77003; 80048; 80053; 80061; 80076; 80202; 81001; 82140; 82270; 82550; 82565; 82805; 82948; 83036; 83605; 83690; 83735; 83880; 84100; 84132; 84134; 84439; 84443; 84481; 84484; 85007; 85014; 85018; 85025; 85027; 85379; 85610; 85730; 86850; 86900; 86901; 86920; 87040; 87070; 87077; 87086; 87106; 87186; 87205; 87493; 87641; 93971; 94002; 94003; 94640; 94664; 96361; 96374; 96375; 99144; 99145; A6211; A7520; A7521; C1729; C1751; C1769; C1874; C1887; C1894; C9113; J0692; J0713; J1120; J1450; J1642; J1650; J1720; J1940; J1956; J1980; J2060; J2185; J2248; J2250; J2270; J2405; J2543; J2765; J2920; J2930; J3010; J3370; J3480; J7030; J7040; J7042; J7050; J7512; J7608; J7613; J7685; P9047; Q9967; S0142